=== PATIENT | female | born 1965 | race Caucasian/White ===

== ENCOUNTER 2020-10-19 13:23 | Observation (INO) ==
--- OUTSIDE RECORDS SUMMARY | 2020-10-19 13:26 | External Medical Summary | Continuity of Care Document ---
:1965 Author Name Jorge Mayfield, Provider Address Unavailable Unavailable , Care Team Providers Name Role Phone Unavailable Unavailable Unavailable Problems Active medical history not documented Allergies and Adverse Reactions Sulfa Drugs (Allergy) Medications Cyclobenzaprine HCl - 10 MG Oral Tablet; TAKE 1 TABLET TWICE DAILY NEEDED. , M.D. Start: 31-Jan-2018 Refills: 0 Arthrotec 75-0.2 MG Oral Tablet Delayed Release; take 1 tablet by mouth 2 times per day , M.D. Start: 31-Jan-2018 Refills: 0 Lantus SoloStar 100 UNIT/ML Subcutaneous Solution Pen-injector; Inject 18 units at bedtime , M.D. Start: 31-Jan-2018 Refills: 0 3 ML Pen Glucophage 1000 MG TABS; TAKE (1) TABLET BY MOUTH 2 TI MES A DAY WITH MEALS , M.D. Start: 31-Jan-2018 Refills: 0 Pamelor 50 MG Oral Capsule; TAKE 2 CAPSULES AT BEDTIME. , M. D. Start: 31-Jan-2018 Refills: 0 Zofran 4 MG Oral Tablet; take 4mg by mouth every 6 hours as needed , M.D. Start: 31-Jan-2018 Refills: 0 Requip 0.25 MG TABS; Take 1 tablet daily , M.D. Start: 31-Jan-2018 Refills: 0 Ambien 5 MG Oral Tablet; TAKE 1 TABLET AT BEDTIME NEEDED. , M.D. Start: 31-Jan-2018 Refills: 0 Nicoderm CQ 14 MG/24HR Transdermal Patch 24 Hour; APPLY 1 PATCH DAILY DIRECTED. , M.D. Start: 31-Jan-2018 Refills: 0 Procedures Procedures not documented Immunizations Immunizations not documented Plan of Treatment Planned Observations Planned Goals not documented Results No Known Results Results not documented
[2020-10-19] MEDS ORDERED: NITROGLYCERIN 2% OINTMENT 30GM TUBE EXT STA (14:03)
[2020-10-19] MEDS ORDERED: ACETAMINOPHEN 1,000 MG/100 ML VIAL IV STA (14:03)
[2020-10-19] MEDS ORDERED: FAMOTIDINE 20MG/5ML IV PUSH IV STA (14:04)
--- NOTE | 2020-10-19 14:08 | Emergency Department Note ---
History of Present Illness General Chief complaint: Chest Pain Stated complaint: CHEST PAIN/NECK PAIN Time Seen by Provider: 10/19/20 13:46 Source: patient Mode of arrival: ambulatory Limitations: no limitations History of Present Illness Provider complaint: Chest pain, shortness of breath Onset (ago): month(s) Location: chest Radiation: back, neck and extremity Severity: moderate Pain Consistency: + colicky Maximum Pain Intensity: 8 Current Pain Intensity: 8 Quality: + constant Relieved By: + none Exacerbated By: + none Associated symptoms: + chest pain and + shortness of breath; no fever/chills Treatments prior to arrival: none This is a 55-year-old female presents emergency department complaining of chest pain and shortness of breath. Patient states the symptoms have been going on for months, and slowly seem to be getting worse. She states that she has been to [facility] as well as [facility] regarding this, but does not like going there because they do not do anything to help her. Patient states between 1 and 2 years ago she did undergo a cardiac cath at [facility] also. Patient states she went to her family doctor but they are not helping her so she is being transferred to another physician. She states they were making arrangements to have her see cardiology but she had not seen cardiology at this point. Patient states she is concerned she is having a heart attack because all of her other family members have heart problems. Patient states she quit smoking recently after she was found to have a blockage in her right lower extremity which occasionally causes numbness in her foot. Patient denies any recent illness, fevers or chills. Patient very tearful. When asked about medications or how she has been treating this patient states "they usually give me Dilaudid and then discharge me with oxycodone". On review of the PDMP, patient does appear to have monthly prescriptions for Ambien, lorazepam, and oxycodone. Pt seen during a time of high acuity and national emergency pandemic while wearing PPE. Home Medications Medication Instructions Recorded Confirmed Type albuterol 90 mcg INHALATION QID PRN 10/19/20 10/19/20 History aspirin [Aspir-Low] 81 mg PO DAILY 10/19/20 10/19/20 History cyclobenzaprine 10 mg PO BID 10/19/20 10/19/20 History diclofenac sodium [Voltaren] 1 g TOPICAL BID PRN 10/19/20 10/19/20 History insulin glargine [Basaglar KwikPen 40 unit SUBCUT HS 10/19/20 10/19/20 History U-100 Insulin] lorazepam [Ativan] 1 mg PO TID 10/19/20 10/19/20 History nortriptyline 50 mg PO BID 10/19/20 10/19/20 History pantoprazole 40 mg PO BID 10/19/20 10/19/20 History ropinirole 4 mg PO HS 10/19/20 10/19/20 History sucralfate 1 g PO ACHS 10/19/20 10/19/20 History zolpidem [Ambien] 10 mg PO HS 10/19/20 10/19/20 History Allergies Allergy/AdvReac Type Severity Reaction Status Date / Time morphine Allergy Severe blisters Verified 10/19/20 17:42 in mouth Sulfa (Sulfonamide Allergy Severe rash/swelli Verified 10/19/20 17:42 Antibiotics) ng Past Med/Surg History Medical History (Updated 10/20/20 @ 20:20 by Valerie Andersen DO) DM2 (diabetes mellitus, type 2) GIB (gastrointestinal bleeding) Surgical History (Updated 10/19/20 @ 23:21 by Aparna Grayson MD) History of esophagogastroduodenoscopy (EGD) Social History Smoking Status: Former smoker Hx Alcohol Use: No Hx Substance Use: No Beliefs That Will Affect Care: None Current Living Situation: Family Other Information That Helps Us Care for You: No Feels Safe at Home: Yes Safety Concerns: Feels Safe At This Time Assistive Devices: None Review of Systems See HPI for pertinent positives & negatives. and A total of 10 systems reviewed and were otherwise negative Physical Exam Vital Signs Vital Signs - 24 hr 10/19/20 13:25 10/19/20 13:37 10/19/20 13:51 Temperature 36.8 C Temperature Source Oral Pulse Rate 110 H 104 H 101 H Pulse Rate [Apical] Pulse Rate from SpO2 Sensor 102 H Pulse Rhythm Regular Pulse Rhythm [Apical] Pulse Strength Normal Pulse Strength [Apical] Respiratory Rate 18 18 12 Respiratory Effort / Characteristics Non-Labored Spontaneous Respiratory Depth Normal Respiratory Pattern Regular Blood Pressure 169/93 H 165/93 H Blood Pressure [Left Arm] Blood Pressure Mean 118 117 Blood Pressure Mean [Left Arm] Blood Pressure Position Sitting Blood Pressure Position [Left Arm] Pulse Oximetry 96 99 Oxygen Delivery Method Room Air Sepsis Recent Fever Within 48 Hours No Sepsis New/Unexplained Change in Mental Status N/A Sepsis Action Taken by Nursing No Action Required 10/19/20 13:52 10/19/20 14:00 10/19/20 14:16 Temperature Temperature Source Pulse Rate 102 H 101 H Pulse Rate [Apical] 101 H Pulse Rate from SpO2 Sensor 102 H 102 H Pulse Rhythm Pulse Rhythm [Apical] Regular Pulse Strength Pulse Strength [Apical] Normal Respiratory Rate 18 20 15 Respiratory Effort / Characteristics Non-Labored Spontaneous Respiratory Depth Normal Respiratory Pattern Regular Blood Pressure 200/160 H 136/94 Blood Pressure [Left Arm] 165/93 H Blood Pressure Mean 173 108 Blood Pressure Mean [Left Arm] 117 Blood Pressure Position Blood Pressure Position [Left Arm] Semi-fowlers Pulse Oximetry 99 98 98 Oxygen Delivery Method Room Air Sepsis Recent Fever Within 48 Hours Sepsis New/Unexplained Change in Mental Status Sepsis Action Taken by Nursing 10/19/20 14:17 10/19/20 14:30 10/19/20 15:01 Temperature Temperature Source Pulse Rate 99 H 104 H 106 H Pulse Rate [Apical] Pulse Rate from SpO2 Sensor 99 H 104 H 106 H Pulse Rhythm Pulse Rhythm [Apical] Pulse Strength Pulse Strength [Apical] Respiratory Rate 14 20 17 Respiratory Effort / Characteristics Respiratory Depth Respiratory Pattern Blood Pressure 181/84 H 143/89 H Blood Pressure [Left Arm] Blood Pressure Mean 116 107 Blood Pressure Mean [Left Arm] Blood Pressure Position Blood Pressure Position [Left Arm] Pulse Oximetry 98 99 98 Oxygen Delivery Method Room Air Sepsis Recent Fever Within 48 Hours Sepsis New/Unexplained Change in Mental Status Sepsis Action Taken by Nursing 10/19/20 15:02 10/19/20 16:00 10/19/20 16:39 Temperature Temperature Source Pulse Rate 104 H 96 H 91 H Pulse Rate [Apical] Pulse Rate from SpO2 Sensor 104 H 96 H Pulse Rhythm Pulse Rhythm [Apical] Pulse Strength Pulse Strength [Apical] Respiratory Rate 19 17 13 Respiratory Effort / Characteristics Respiratory Depth Respiratory Pattern Blood Pressure 137/94 129/84 Blood Pressure [Left Arm] Blood Pressure Mean 108 99 Blood Pressure Mean [Left Arm] Blood Pressure Position Blood Pressure Position [Left Arm] Pulse Oximetry 98 97 Oxygen Delivery Method Room Air Room Air Sepsis Recent Fever Within 48 Hours Sepsis New/Unexplained Change in Mental Status Sepsis Action Taken by Nursing 10/19/20 17:00 10/19/20 17:30 10/19/20 18:01 Temperature Temperature Source Pulse Rate 94 H 96 H 91 H Pulse Rate [Apical] Pulse Rate from SpO2 Sensor 92 H Pulse Rhythm Pulse Rhythm [Apical] Pulse Strength Pulse Strength [Apical] Respiratory Rate 15 22 18 Respiratory Effort / Characteristics Respiratory Depth Respiratory Pattern Blood Pressure 103/75 145/82 H 114/74 Blood Pressure [Left Arm] Blood Pressure Mean 84 103 87 Blood Pressure Mean [Left Arm] Blood Pressure Position Blood Pressure Position [Left Arm] Pulse Oximetry 98 Oxygen Delivery Method Room Air Sepsis Recent Fever Within 48 Hours Sepsis New/Unexplained Change in Mental Status Sepsis Action Taken by Nursing 10/19/20 18:30 Temperature Temperature Source Pulse Rate 100 H Pulse Rate [Apical] Pulse Rate from SpO2 Sensor 96 H Pulse Rhythm Pulse Rhythm [Apical] Pulse Strength Pulse Strength [Apical] Respiratory Rate 22 Respiratory Effort / Characteristics Respiratory Depth Respiratory Pattern Blood Pressure 125/85 Blood Pressure [Left Arm] Blood Pressure Mean 98 Blood Pressure Mean [Left Arm] Blood Pressure Position Blood Pressure Position [Left Arm] Pulse Oximetry 98 Oxygen Delivery Method Room Air Sepsis Recent Fever Within 48 Hours Sepsis New/Unexplained Change in Mental Status Sepsis Action Taken by Nursing GENERAL: alert, well appearing, well nourished, no distress, non-toxic EYE EXAM: normal conjunctiva, PERRL and EOM's grossly intact OROPHARYNX: no exudate, no erythema, lips, buccal mucosa, and tongue normal and mucous membranes are moist NECK: supple, no nuchal rigidity, no adenopathy, non-tender LUNGS: Clear to auscultation. Normal chest wall mechanics, no w/r/r HEART: no murmurs, S1 normal and S2 normal ABDOMEN: abdomen soft, non-tender, normo-active bowel sounds, no masses, no rebound or guarding. BACK: Back is symmetrical on inspection and there is no deformity, no midline tenderness, no CVA tenderness. SKIN: no rashes and no bruising UPPER EXTREMITIES: upper extremities are grossly normal. FROM, nml pulses b/l. LOWER EXTREMITIES: No pitting edema. FROM, nml pulses b/l. NEURO EXAM: Normal sensorium, cranial nerves II-XII grossly intact, normal speech, no gross weakness of arms, no gross weakness of legs. Gross sensation intact. Course Course 170: Patient updated on results. Patient states she also underwent EGD recently and was told she is "eroded". She states she takes stomach medication daily, and was also started on carafate in addition. Patient continues to complain of pain. 1811: Discussed with patient possible need for inpatient evaluation due to ongoing pain. Patient continuing to request pain medication. 1829: Discussed with Dr. Ko. 2010: Discussed with Dr. Staton. Administered Medications Acetaminophen (Acetaminophen 325 Mg Tab) 650 mg PO Q4H PRN PRN Reason: Pain or Fever Stop: 11/18/20 23:11 Last Admin: 10/20/20 05:04 Dose: 650 mg Documented by: [id number] Admin: 10/20/20 01:31 Dose: 650 mg Documented by: [id number] Hydrocodone Bitart/Acetaminophen (Hydrocodone/Acetaminophen 7.5/325mg Tab) 1 tab PO Q4H PRN PRN Reason: Pain Stop: 11/03/20 14:55 Last Admin: 10/20/20 15:15 Dose: 1 tab Documented by: [id number] Aspirin (Aspirin 81 Mg Ectab) 81 mg PO DAILY [facility] Stop: 11/19/20 08:59 Last Admin: 10/20/20 07:45 Dose: 81 mg Documented by: [id number] Cyclobenzaprine HCl (Cyclobenzaprine Hcl 10 Mg Tab) 10 mg PO BID [facility] Stop: 11/18/20 22:29 Last Admin: 10/20/20 07:45 Dose: 10 mg Documented by: [id number] Admin: 10/19/20 22:52 Dose: 10 mg Documented by: [id number] Heparin Sodium (Porcine) (Heparin Sod 5,000 Unit/0.5 Ml Vial) 5,000 units SQ Q12 RICKY Stop: 11/18/20 22:29 Last Admin: 10/20/20 07:45 Dose: 5,000 units Documented by: [id number] Admin: 10/19/20 22:54 Dose: 5,000 units Documented by: [id number] Insulin Aspart (Insulin Aspart 100 Units/Ml 3 Ml Pen) 0 units SC Q6 [facility] Stop: 11/18/20 22:29 Last Admin: 10/20/20 16:26 Dose: 1 units Documented by: [id number] Cosigned by: [id number] Admin: 10/20/20 13:48 Dose: 1 units Documented by: [id number] Cosigned by: [id number] Admin: 10/20/20 07:56 Dose: 1 units Documented by: [id number] Cosigned by: [id number] Admin: 10/19/20 22:57 Dose: 4 units Documented by: [id number] Cosigned by: [id number] Insulin Glargine (Insulin Glargine Solostar 100 Units/Ml 3 Ml Pen) 20 units SC BID RICKY Stop: 11/19/20 08:59 Last Admin: 10/20/20 10:36 Dose: 20 units Documented by: [id number] Cosigned by: [id number] Nortriptyline HCl (Nortriptyline Hcl 25 Mg Cap) 50 mg PO BID RICKY Stop: 11/18/20 22:18 Last Admin: 10/20/20 07:44 Dose: 50 mg Documented by: [id number] Admin: 10/19/20 22:53 Dose: 50 mg Documented by: [id number] Ondansetron HCl (Ondansetron Inj 2 Mg/Ml 2 Ml Vial) 4 mg IV Q6H PRN PRN Reason: Nausea Stop: 11/18/20 23:11 Last Admin: 10/20/20 16:56 Dose: 4 mg Documented by: [id number] Admin: 10/20/20 00:56 Dose: 4 mg Documented by: [id number] Pantoprazole Sodium (Pantoprazole 40 Mg Tab) 40 mg PO BID RICKY Stop: 11/18/20 22:18 Last Admin: 10/20/20 07:45 Dose: 40 mg Documented by: [id number] Admin: 10/19/20 22:52 Dose: 40 mg Documented by: [id number] Ropinirole HCl (Ropinirole Hcl 1 Mg Tablet) 4 mg PO HS RICKY Stop: 11/18/20 22:18 Last Admin: 10/19/20 22:53 Dose: 4 mg Documented by: [id number] Sucralfate (Sucralfate 1 Gm Tab) 1 gm PO ACHS RICKY Stop: 11/18/20 22:18 Last Admin: 10/20/20 16:20 Dose: 1 gm Documented by: [id number] Admin: 10/20/20 11:40 Dose: 1 gm Documented by: [id number] Admin: 10/20/20 07:45 Dose: 1 gm Documented by: [id number] Admin: 10/19/20 22:53 Dose: 1 gm Documented by: [id number] Tramadol HCl (Tramadol Hcl 50 Mg Tablet) 50 mg PO Q4H PRN PRN Reason: Pain Stop: 11/19/20 01:17 Last Admin: 10/20/20 10:38 Dose: 50 mg Documented by: [id number] Admin: 10/20/20 05:05 Dose: 50 mg Documented by: [id number] Admin: 10/20/20 01:33 Dose: 50 mg Documented by: [id number] Zolpidem Tartrate (Zolpidem Tartrate 10 Mg Tab) 10 mg PO HS PRN PRN Reason: Sleep Stop: 11/18/20 23:11 Last Admin: 10/19/20 23:35 Dose: 10 mg Documented by: [id number] Discontinued Medications Al Hydrox/Mg Hydrox/Simethicone (Aluminum/Magnesium Susp 30 Ml Udc) 15 ml PO NOW STA Stop: 10/19/20 17:01 Last Admin: 10/19/20 17:33 Dose: 15 ml Documented by: [id number] Albuterol (Albut/Ipratrop 3mg/0.5mg Neb 3 Ml Vial) 3 ml NEB NOW STA Stop: 10/19/20 19:29 Last Admin: 10/19/20 20:05 Dose: 3 ml Documented by: [id number] Atropine Sulfate (Atropine Sulfate 0.1 Mg/Ml 10ml Syr) Confirm Administered Dose 2 mg IV .STK-MED ONE Stop: 10/20/20 09:39 Last Admin: 10/20/20 11:09 Dose: Not Given Documented by: [id number] Diphenhydramine HCl (Diphenhydramine 50 Mg/Ml Vial) 12.5 mg IV NOW STA Stop: 10/19/20 15:07 Last Admin: 10/19/20 15:22 Dose: 12.5 mg Documented by: [id number] Diphenhydramine HCl (Diphenhydramine 50 Mg/Ml Vial) 25 mg IV NOW STA Stop: 10/19/20 22:26 Last Admin: 10/19/20 22:51 Dose: 25 mg Documented by: [id number] Dobutamine HCl (Dobutamine Hcl 12.5 Mg/Ml 20 Ml Vial) Confirm Administered Dose 250 mg IV .STK-MED ONE Stop: 10/20/20 09:39 Last Admin: 10/20/20 11:09 Dose: Not Given Documented by: [id number] Famotidine (Famotidine 20mg/5ml Iv Push) 20 mg IV ONE STA Stop: 10/19/20 14:05 Last Admin: 10/19/20 14:13 Dose: 20 mg Documented by: [id number] Acetaminophen (Ofirmev) 1,000 mg in 100 mls @ 400 mls/hr IV NOW STA Stop: 10/19/20 14:17 Last Infusion: 10/19/20 14:52 Dose: 0 mls/hr Documented by: [id number] Admin: 10/19/20 14:11 Dose: 400 mls/hr Documented by: [id number] Sodium Chloride (Nss 1000ml) 1,000 mls @ 150 mls/hr IV .Q6H40M RICKY Stop: 11/18/20 17:29 Last Admin: 10/20/20 16:29 Dose: Not Given Documented by: [id number] Infusion: 10/20/20 16:29 Dose: 0 mls/hr Documented by: [id number] Admin: 10/20/20 11:40 Dose: 150 mls/hr Documented by: [id number] Infusion: 10/20/20 09:14 Dose: 150 mls/hr Documented by: [id number] Admin: 10/20/20 02:33 Dose: 150 mls/hr Documented by: [id number] Infusion: 10/20/20 02:28 Dose: 150 mls/hr Documented by: [id number] Admin: 10/19/20 18:04 Dose: 125 mls/hr Documented by: [id number] Lorazepam (Ativan) 0.5 mg in 1 mls @ 1 mls/min IV NOW STA Stop: 10/19/20 17:21 Last Admin: 10/19/20 17:34 Dose: 1 mls/min Documented by: [id number] Lorazepam (Ativan) 1 mg in 2 mls @ 2 mls/min IV NOW STA Stop: 10/20/20 00:45 Last Admin: 10/20/20 00:56 Dose: 2 mls/min Documented by: [id number] Insulin Glargine (Insulin Glargine Solostar 100 Units/Ml 3 Ml Pen) 30 units SC BID RICKY Stop: 11/18/20 22:18 Last Admin: 10/19/20 22:56 Dose: 30 units Documented by: [id number] Cosigned by: [id number] Ioversol (Optiray 320 125ml) 118 ml IV ONCE ONE Stop: 10/19/20 15:29 Last Admin: 10/19/20 15:29 Dose: 118 ml Documented by: [id number] Ioversol (Ioversol 100ml) 92 ml IV ONCE ONE Stop: 10/20/20 17:48 Last Admin: 10/20/20 17:48 Dose: 92 ml Documented by: [id number] Ketorolac Tromethamine (Ketorolac Tromethamine 15 Mg/Ml Vial) 10 mg IV NOW ONE Stop: 10/19/20 14:57 Last Admin: 10/19/20 15:00 Dose: 10 mg Documented by: [id number] Metoclopramide HCl (Metoclopramide Hcl Inj 5 Mg/Ml 2 Ml Vial) 5 mg IV ONE ONE Stop: 10/19/20 15:07 Last Admin: 10/19/20 15:22 Dose: 5 mg Documented by: [id number] Metoprolol Tartrate (Metoprolol Tartrate 1 Mg/Ml Vial) Confirm Administered Dose 10 mg IV .STK-MED ONE Stop: 10/20/20 09:39 Last Admin: 10/20/20 11:09 Dose: Not Given Documented by: [id number] Nitroglycerin (Nitroglycerin 2% Ointment 30gm Tube) 2 inch EXT NOW STA Stop: 10/19/20 14:04 Last Admin: 10/19/20 14:11 Dose: 2 inch Documented by: [id number] Sucralfate (Sucralfate 1 Gm/10 Ml Udc) 1 gm PO NOW STA Stop: 10/19/20 17:01 Last Admin: 10/19/20 17:33 Dose: 1 gm Documented by: [id number] Tramadol HCl (Tramadol Hcl 50 Mg Tablet) 50 mg PO NOW STA Stop: 10/19/20 19:40 Last Admin: 10/19/20 19:59 Dose: 50 mg Documented by: [id number] Medical Decision Making Differential Diagnosis Differential diagnoses includes but is not limited to acute coronary syndrome, myocardial infarction, pericarditis, pulmonary embolus, aortic dissection, pneumonia, pneumothorax, musculoskeletal, shingles, esophageal. Medical Records Attestation: I reviewed the patient's medical records. Home Medications Current Medication List: was personally reviewed by me Laboratory Data Attestation: I reviewed the patient's lab results. Result diagrams: 10/20/20 01:54 10/20/20 01:51 Lab Results 10/19/20 10/19/20 10/19/20 Range/Units 13:47 13:47 13:47 WBC 11.80 H (4.8-10.8) K/uL RBC 4.99 (4.2-5.4) M/uL Hgb 14.6 (12.0-16.0) g/dL Hct 42.2 (37-47) % MCV 84.6 (80-100) fL MCH 29.3 (25-34) pg MCHC 34.6 (32-36) g/dL RDW Std Deviation 38.6 (36.4-46.3) fL RDW Coeff of [place] 12.8 (11.5-14.5) % Plt Count 331 (130-400) K/uL MPV 10.0 (7.4-10.4) fL Immature Gran % (Auto) 0.3 % Neut % (Auto) 63.4 % Lymph % (Auto) 26.4 % [place] % (Auto) 7.7 % Eos % (Auto) 1.9 % Baso % (Auto) 0.3 % Neut # (Auto) 7.46 H (1.4-6.5) K/uL Lymph # (Auto) 3.12 (1.2-3.4) K/uL [place] # (Auto) 0.91 H (0.11-0.59) K/uL Eos # (Auto) 0.23 (0-0.5) K/uL Baso # (Auto) 0.04 (0-0.2) K/uL Immature Gran # (Auto) 0.04 H (0.00-0.02) K/uL D-Dimer 220 (0-500) ug/L FEU Sodium 132 L (136-145) mmol/L Potassium 4.0 (3.5-5.1) mmol/L Chloride 99 (98-107) mmol/L Carbon Dioxide 25 (21-32) mmol/L Anion Gap 8.0 (3-11) BUN 10 (7-18) mg/dl Creatinine 0.64 (0.6-1.2) mg/dl Est Cr Clr Drug Dosing 91.9 ml/min Est GFR ( Amer) 115.6 Est GFR (Non-Af Amer) 99.8 BUN/Creatinine Ratio 16.0 (10-20) Glucose 298 H (70-99) mg/dl Calcium 10.1 (8.5-10.1) mg/dl Magnesium 1.9 (1.8-2.4) mg/dl Total Bilirubin 0.5 (0.2-1) mg/dl AST 6 L (15-37) U/L ALT 35 (12-78) U/L Alkaline Phosphatase 110 (45-117) U/L Troponin I < 0.015 (0-0.045) ng/ml NT-Pro-B Natriuret Pep 20 (0-900) pg/ml Total Protein 8.2 (6.4-8.2) gm/dl Albumin 4.3 (3.4-5.0) gm/dl Globulin 3.9 (2.5-4.0) gm/dl Albumin/Globulin Ratio 1.1 (0.9-2) Lipase 51 L (73-393) U/L TSH 1.770 (0.300-4.500) uIu/ml Imaging Data Radiologist's Impression: XR chest 1V portable HISTORY: Atypical chest pain COMPARISON: None. FINDINGS: The lungs are clear. Cardiac silhouette is normal in size. No pleural effusions. No pneumothorax. IMPRESSION: No acute process. ACT 112: Negative or not required by law. Electronically signed by: Ernst Murray M.D. 10/19/2020 2:[address] ANGIOGRAM OF THE CHEST COMBO CLINICAL HISTORY: Atypical chest pain radiating into the neck and back. COMPARISON STUDY: Chest x-ray dated 10/19/2020. TECHNIQUE: Before and following the IV administration of 118 cc of Optiray 320, CT angiogram of the chest was performed from the thoracic inlet to the upper abdomen utilizing the dissection protocol. Images are reviewed in the axial, sagittal, and coronal planes. 3-D MIPS images are created and assessed. IV contrast was administered without complication. A dose lowering technique was utilized adhering to the principles of ALARA. CT DOSE: 764.68 mGy.cm FINDINGS: Thyroid: Imaged portions of the thyroid gland are normal in size and attenuation. A coarse calcification is noted in the left lobe. Thoracic aorta: There is mild atherosclerotic calcification of the thoracic aorta. No intramural hematoma is seen on the unenhanced series. The thoracic aorta is normal in caliber and demonstrates bovine variant arch anatomy. No dissection is seen. The arch vessels are widely patent. Pulmonary vasculature: The pulmonary trunk is normal in caliber. There is no evidence of pulmonary embolus in the main, lobar, or segmental pulmonary arteries. Heart: The heart is normal in size noting trace pericardial effusion. The coronary arteries are densely calcified. Lungs and pleural spaces: Mild emphysematous change is noted. There is no airspace consolidation or pleural effusion. The trachea and central airways are clear. Mild diffuse peribronchial thickening is noted. Scattered foci of tree-in-bud nodularity are scattered throughout both lungs, greatest in the upper lobes. Mediastinum: There is no mediastinal lymphadenopathy. [place]: Clear. Axillae: There is no axillary lymphadenopathy. Upper abdomen: There is a small hiatal hernia. Cholecystectomy clips are noted on the coal gasification technician tomogram. Partially visualized upper abdominal viscera is otherwise within normal limits. Skeletal structures: No lytic or blastic bony lesions are seen. Calcific tendinopathy is suggested in the right shoulder. IMPRESSION: 1. Unremarkable CT angiogram of the thoracic aorta. 2. There is no evidence of pulmonary embolus in the main, lobar, or segmental pulmonary arteries. 3. Emphysema. 4. There is advanced coronary artery calcification. Consider nonemergent cardiology follow-up. 5. There is no lobar consolidation or pleural effusion. 6. Mild diffuse peribronchial thickening is noted and there are scattered tree-in-bud airspace opacities in the upper lobes. The appearance suggests bronchitis/reactive airway disease and a minimal pneumonitis. Clinical correlation will be essential. 7. Additional findings as above. ACT 112: Positive. There are findings on this exam that require communication between the performing entity and the patient following Patient Test Result Information Act ([place] Act 112) guidelines. Electronically signed by: Finn Bradshaw M.D. 10/19/2020 3:48 PM ECG Data Attestation: I personally reviewed and interpreted this ECG as follows: Indication: + chest pain Rate (beats per minute): 109 Rhythm: + sinus tachycardia ECG Intervals/blocks: + Normal QRS and + Normal QT ECG [place]: + Normal ECG ST segments: + Normal ST segments MDM Narrative HEART score 4 This is a 55-year-old female presents due to concern for ongoing pain. Patient felt pain which she has had intermittently over several months was acutely worse and now radiating beyond where she has previously experienced radiation of pain. Patient placed on vehicle monitor technician, labs drawn and sent, chest x-ray performed. Patient's initial labs and imaging reassuring, patient continued to complain of pain. Patient was given several different types of pain medication to try and treat her symptoms. Patient was not given narcotics as she seemed to be specifically requesting that based on prior experience per her report. I explained to her I do not feel this is appropriate as we needed to find the etiology of her pain. I did review the PDMP. Patient has previously been seen by cardiology and we were able to obtain outside records of a cardiac cath in early 2019. Given the patient's history of diabetes and smoking this was fairly reassuring. Patient denied any recent illness or trauma. One 1 repeat eval uation patient then also reported she had had a recent EGD as part of an evaluation for pain and was told she had significant erosion and Carafate was added to her daily regimen of a PPI. Additional GI medications here did not seem to improve her pain. Despite a reassuring evaluation here in the emergency room, patient does have an elevated heart score, and due to ongoing complaints of pain case was discussed with Hospitalist team. No ectopy or dysrhythmia noted on telemetry. An order was placed for continuous cardiac monitoring. The monitor shows a rate of _92_ with _Normal sinus rhythm. Patient has a family history of CAD. Patient was first seen and observation began at 1346 and was necessary in order to determine Evaluate possible etiology of her pain and rule out cardiac source. Upon re-evaluation, 4.5 hours of observation revealed that the patient should be admitted. Discharge from observation at 1830. Impression & Plan Chest pain, Insulin dependent diabetes mellitus Discharge Plan Visit Data Chief Complaint: Chest Pain Stated Complaint: CHEST PAIN/NECK PAIN ED Provider: Valerie Andersen Discharge Problem: Chest pain, Insulin dependent diabetes mellitus Patient Disposition: Admitted As Inpatient Discharge Instructions Interventions: ED Discharge Assessment Last Done: 10/19/20 21:58 Discharge Problem: Chest pain Qualifiers: Chest pain type: unspecified Qualified Code(s): R07.9 - Chest pain, unspecified
[2020-10-19 14:12] LABS: Basophils # (auto) 0.04 K/uL (0-0.2); Basophils % (auto) 0.3 %; Eosinophils # (auto) 0.23 K/uL (0-0.5); Eosinophils % (auto) 1.9 %; Hematocrit (blood only) 42.2 % (37-47); Hemoglobin 14.6 g/dL (12.0-16.0); Immature Granulocytes # (auto) 0.04 K/uL (0.00-0.02); Immature Granulocytes % (auto) 0.3 %; Lymphocytes # (auto) 3.12 K/uL (1.2-3.4); Lymphocytes % (auto) 26.4 %; Mean Corpuscular Hemoglobin 29.3 pg (25-34); Mean Corpuscular Hgb Conc 34.6 g/dL (32-36); Mean Corpuscular Volume 84.6 fL (80-100); Monocytes # (auto) 0.91 K/uL (0.11-0.59); Monocytes % (auto) 7.7 %; Neutrophils # (auto) 7.46 K/uL (1.4-6.5); Neutrophils % (auto) 63.4 %; Platelet Count 331 K/uL (130-400); RDW Coefficient of Variation 12.8 % (11.5-14.5); RDW Standard Deviation 38.6 fL (36.4-46.3); Red Blood Count 4.99 M/uL (4.2-5.4)
[2020-10-19 14:21] LABS: Albumin Level 4.3 gm/dl (3.4-5.0); Blood Urea Nitrogen 10 mg/dl (7-18); Calcium 10.1 mg/dl (8.5-10.1); Carbon Dioxide 25 mmol/L (21-32); Chloride 99 mmol/L (98-107); Creatinine Clr Calc Pharmacy 91.9 ml/min; Est GFR (African American) 115.6; Est GFR (Non-African American) 99.8; Glucose 298 mg/dl (70-99); Lipase 51 U/L (73-393); Magnesium 1.9 mg/dl (1.8-2.4); Sodium 132 mmol/L (136-145)
[2020-10-19 14:27] LABS: D Dimer 220 ug/L FEU (0-500)
--- NOTE | 2020-10-19 14:30 | XRay Report ---
XR chest 1V portable HISTORY: Atypical chest pain COMPARISON: None. FINDINGS: The lungs are clear. Cardiac silhouette is normal in size. No pleural effusions. No pneumot horax. IMPRESSION: No acute process. ACT 112: Negative or not required by law. Electronically signed by: Ernst Murray M.D. 10/19/2020 2:29 PM
[2020-10-19 14:31] LABS: Alanine Aminotransferase 35 U/L (12-78); Albumin Globulin Ratio 1.1 (0.9-2); Alkaline Phosphatase 110 U/L (45-117); Aspartate Aminotransferase 6 U/L (15-37); Bilirubin,Total 0.5 mg/dl (0.2-1); Globulin 3.9 gm/dl (2.5-4.0); NT Pro B Type Natriuretic Pept 20 pg/ml (0-900); Total Protein 8.2 gm/dl (6.4-8.2); Troponin I < 0.015 ng/ml (0-0.045)
[2020-10-19] MEDS ORDERED: KETOROLAC TROMETHAMINE 15 MG/ML VIAL IV ONE (14:56)
[2020-10-19] MEDS ORDERED: diphenhydrAMINE 50 MG/ML VIAL IV STA ×2 (15:06→22:25)
[2020-10-19] MEDS ORDERED: METOCLOPRAMIDE HCL INJ 5 MG/ML 2 ML VIAL IV ONE (15:06)
[2020-10-19] MEDS ORDERED: OPTIRAY 320 125ml IV ONE (15:28)
--- NOTE | 2020-10-19 15:49 | CT Scan Report ---
CT ANGIOGRAM OF THE CHEST COMBO CLINICAL HISTORY: Atypical chest pain radiating into the neck and back. COMPARISON STUDY: Chest x-ray dated 10/19/2020. TECHNIQUE: Before and following the IV administration of 118 cc of Optiray 320, CT angiogram of the c hest was performed from the thoracic inlet to the upper abdomen utilizing the dissection protocol. Im ages are reviewed in the axial, sagittal, and coronal planes. 3-D MIPS images are created and assesse d. IV contrast was administered without complication. A dose lowering technique was utilized adherin g to the principles of ALARA. CT DOSE: 764.68 mGy.cm FINDINGS: Thyroid: Imaged portions of the thyroid gland are normal in size and attenuation. A coarse calcificat ion is noted in the left lobe. Thoracic aorta: There is mild atherosclerotic calcification of the thoracic aorta. No intramural anne harrison is seen on the unenhanced series. The thoracic aorta is normal in caliber and demonstrates bovin e variant arch anatomy. No dissection is seen. The arch vessels are widely patent. Pulmonary vasculature: The pulmonary trunk is normal in caliber. There is no evidence of pulmonary em bolus in the main, lobar, or segmental pulmonary arteries. Heart: The heart is normal in size noting trace pericardial effusion. The coronary arteries are dense ly calcified. Lungs and pleural spaces: Mild emphysematous change is noted. There is no airspace consolidation or p leural effusion. The trachea and central airways are clear. Mild diffuse peribronchial thickening is noted. Scattered foci of tree-in-bud nodularity are scattered throughout both lungs, greatest in the upper lobes. Mediastinum: There is no mediastinal lymphadenopathy. [place]: Clear. Axillae: There is no axillary lymphadenopathy. Upper abdomen: There is a small hiatal hernia. Cholecystectomy clips are noted on the modeling director tomogram. Partially visualized upper abdominal viscera is otherwise within normal limits. Skeletal structures: No lytic or blastic bony lesions are seen. Calcific tendinopathy is suggested in the right shoulder. IMPRESSION: 1. Unremarkable CT angiogram of the thoracic aorta. 2. There is no evidence of pulmonary embolus in the main, lobar, or segmental pulmonary arteries. 3. Emphysema. 4. There is advanced coronary artery calcification. Consider nonemergent cardiology follow-up. 5. There is no lobar consolidation or pleural effusion. 6. Mild diffuse peribronchial thickening is noted and there are scattered tree-in-bud airspace opacit ies in the upper lobes. The appearance suggests bronchitis/reactive airway disease and a minimal pneu monitis. Clinical correlation will be essential. 7. Additional findings as above. ACT 112: Positive. There are findings on this exam that require communication between the performing entity and the patient following Patient Test Result Information Act ([place] Act 112) guidelines. Electronically signed by: Finn Bradshaw M.D. 10/19/2020 3:48 PM
--- NOTE | 2020-10-19 16:32 | Electrocardiogram Report ---
Test Reason : Blood Pressure : / mmHG Vent. Rate : 109 BPM Atrial Rate : 109 BPM P-R Int : 152 ms QRS Dur : 090 ms QT Int : 332 ms P-R-T Axes : 072 065 070 degrees QTc Int : 447 ms Poor data quality, interpretation may be adversely affected Sinus tachycardia Possible Left atrial enlargement Low voltage QRS Septal infarct , age undetermined Abnormal ECG No previous ECGs available Confirmed by Aakash Ruff ([id number]) on 10/19/2020 4:32:46 PM Referred By: REFERRED SELF Confirmed By:Aakash Ruff
[2020-10-19] MEDS ORDERED: SUCRALFATE 1 GM/10 ML UDC PO STA (17:00)
[2020-10-19] MEDS ORDERED: ALUMINUM/MAGNESIUM SUSP 30 ML UDC PO STA (17:00)
[2020-10-19] MEDS ORDERED: LORazepam 0.5 MG/1 ML VIAL IV STA (17:20)
[2020-10-19] MEDS: SODIUM CHLORIDE 0.9% 1000ML 1,000 ML IV SCH (18:04)
[2020-10-19] MEDS ORDERED: ALBUT/IPRATROP 3MG/0.5MG NEB 3 ML VIAL NEB STA (19:28)
[2020-10-19] MEDS ORDERED: traMADol HCL 50 MG TABLET PO STA (19:39)
--- NOTE | 2020-10-19 19:42 | History & Physical Report ---
Date of Service October 19, 2020 Assessment & Plan (1) Chest pain: 55 yo F presenting to hospital for ongoing chest pain for past few months with variable symptoms. Chest Pain - troponin negative - EKG: sinus tachycardia with left atrial enlargement, no ST segment changes or QRS widening - hx low grade coronary stenosis (30% in 2019) - history difficult to discern, possibly exertional dyspnea? vs. angina - HEART score 4 (DM2, Smoking, 55 yo, PVD, moderately suspicious sx) - stress echocardiogram in AM - A1c, lipid panel in AM - troponin repeat - PCU DM2 - takes 40 units lantus at bedtime, switched to 20 units BID - takes 10 units humalog with meals, SSI with carb consistent meals - likely would benefit from ASA, Statin pending A1c and lipid panel Concern for secondary gain - patient repeatedly asking for pain medication to resolve her multitude of symptoms - told ER provider and this provider that other hospitals have given her dilaudid for chest pain - consistently rates pain 8-10 without relief - no resolution of pain with toradol, nitro, tylenol. - tramadol 50 mg Q4 PRN Pulmonary wheezing - heard on exam, likely COPD given smoking hx - pt states she was told she had COPD but never given any medications for it or had testing done Hx GIB - recently had GIB and was evaluated at [facility] - denies being sent home with medications despite PPI, sucralfate being on medication list DVT ppx: heparin Q12 FEN/GI: heart health, carb consistent diet Code Status: full code Dispo: PCU (2) DM2 (diabetes mellitus, type 2): History of Present Illness 55-year-old female with a recent past medical history of EGD at [facility] for upper GI bleed, DM2, COPD, tobacco abuse. She presents to the hospital today with complaints of chest pain that has been ongoing for a few months. She states that it is sharp and stabbing in her front of her chest sometimes goes down her left arm and feels persistent. She denies any worsened pain or shortness of breath with exertion. She is unsure of what brings on the pain. She states that at this point she just "just wants relief" and is tearful when describing the pain being around the clock. She states that at some point someone told her that she had COPD but she has not been treated for this and no testing was done to confirm it. She does have a smoking history of approximately 1 pack per 2 days for 25 years. She recently quit smoking 6 months ago. She attest to having diabetes that she takes 40 units of Lantus at bedtime and 10 units of Humalog with meals. She states that she is currently in between primary care providers and has not seen cardiology despite being seen in multiple hospitals for complaints of chest pain. Per ED provider she did have a cardiac cath performed last year that showed approximately 30% stenosis and no intervention was performed. Primary Care Provider: NO PCP Allergies Allergy/AdvReac Type Severity Reaction Status Date / Time morphine Allergy Severe blisters Verified 10/19/20 17:42 in mouth Sulfa (Sulfonamide Allergy Severe rash/swelli Verified 10/19/20 17:42 Antibiotics) ng Home Medications Medication Instructions Recorded Confirmed Type albuterol 90 mcg INHALATION QID PRN 10/19/20 10/19/20 History aspirin [Aspir-Low] 81 mg PO DAILY 10/19/20 10/19/20 History cyclobenzaprine 10 mg PO BID 10/19/20 10/19/20 History diclofenac sodium [Voltaren] 1 g TOPICAL BID PRN 10/19/20 10/19/20 History insulin glargine [Basaglar KwikPen 40 unit SUBCUT HS 10/19/20 10/19/20 History U-100 Insulin] lorazepam [Ativan] 1 mg PO TID 10/19/20 10/19/20 History nortriptyline 50 mg PO BID 10/19/20 10/19/20 History pantoprazole 40 mg PO BID 10/19/20 10/19/20 History ropinirole 4 mg PO HS 10/19/20 10/19/20 History sucralfate 1 g PO ACHS 10/19/20 10/19/20 History zolpidem [Ambien] 10 mg PO HS 10/19/20 10/19/20 History Past Med/Surg History Medical History (Updated 10/21/20 @ 04:41 by Silvestre Carvajal) DM2 (diabetes mellitus, type 2) GIB (gastrointestinal bleeding) Surgical History (Updated 10/21/20 @ 04:39 by Silvestre Carvajal) History of esophagogastroduodenoscopy (EGD) Social History Smoking Status: Former smoker Hx Alcohol Use: No Hx Substance Use: No Beliefs That Will Affect Care: None Current Living Situation: Family Other Information That Helps Us Care for You: No Feels Safe at Home: Yes Safety Concerns: Feels Safe At This Time Assistive Devices: None Review of Systems Constitutional: + fatigue; no fever, no chills, no sweats, no body aches and no malaise Eyes: + problem reported (occassional loss of vision?); no blind spots and no eye pain Respiratory: + dyspnea on exertion; no cough, no pain on inspiration and no wheezing Cardiovascular: + chest pain, + radiating jaw, neck or arm pain, + dyspnea on exertion, + palpitations, + lightheadedness, + syncope, + edema and + calf pain; no orthopnea Gastrointestinal: + abdominal pain, + heartburn, + nausea and + vomiting; no constipation, no diarrhea/loose stools and no blood in stools Musculoskeletal: + back pain and + myalgia Neurologic: + unsteadiness, + falls, + tingling, + numbness and + headache(s) Physical Exam Physical Exam: Constitutional: woman curled up in position in bed, tearful Eyes: EOMI, pupils equal and reactive bilaterally, no scleral icterus Cardiac: RRR, no murmurs, gallops or rubs. Normal S1, S2 Pulm: tight breath sounds with wheezes throughout Abd: soft, nontender, nondistended, normal bowel sounds, no rebound or guarding Extremities: 2+ peripheral pulses, no edema Neuro: no focal deficits, moving all 4 limbs, A&Ox3 Results & Data Results & Data ([facility]) Vital Signs (Past 12 Hours) Vital Signs Temp Pulse Pulse Resp BP BP Pulse Ox 10/19/20 19:30 20 129/78 98 10/19/20 19:00 96 H 12 139/92 98 10/19/20 18:30 100 H 22 125/85 98 10/19/20 18:01 91 H 18 114/74 98 10/19/20 17:30 96 H 22 145/82 H 10/19/20 17:00 94 H 15 103/75 10/19/20 16:39 91 H 13 129/84 10/19/20 16:00 96 H 17 137/94 97 10/19/20 15:02 104 H 19 98 10/19/20 15:01 106 H 17 143/89 H 98 10/19/20 14:30 104 H 20 181/84 H 99 10/19/20 14:17 99 H 14 98 10/19/20 14:16 101 H 15 136/94 98 10/19/20 14:00 102 H 20 200/160 H 98 10/19/20 13:52 101 H 18 165/93 H 99 10/19/20 13:51 101 H 12 165/93 H 99 10/19/20 13:37 104 H 18 10/19/20 13:25 36.8 C 110 H 18 169/93 H 96 Code Status & VTE Plan VTE Prophylaxis Plan VTE Prophylaxis will be ordered: Yes Supervising Physician Co-Signing Physician Notes Attending addendum: I have physically seen this patient, have supervised the medical residents activities, and agree with the H&P unless as otherwise noted. Assessment and Plan: Chest pain- The patient will be admitted to telemetry for serial cardiac enzymes, serial EKG's, cardiac rhythm monitoring and a 2-D echocardiogram with Dopplers. Check hemoglobin A1c and fasting lipid panel We will need a stress echo prior to discharge Diabetes mellitus-Lantus insulin as noted Hold 10 units Humalog with meals Placed on Accu-Cheks before meals and at bedtime with NovoLog coverage per scale Remaining orders and notations as noted Resident Activity Tracking Resident Involvement: Resident Care Provided Care Provided: Adult Hospital Medicine
[2020-10-19] MEDS ORDERED: CARBOHYDRATES FOR HYPOGLYCEMIA PO PRN (22:19)
[2020-10-19] MEDS ORDERED: GLUCOSE 40% GEL 15 GM TUBE PO PRN (22:19)
[2020-10-19] MEDS ORDERED: GLUCAGON FOR INJ 1 MG VIAL SQ PRN (22:19)
[2020-10-19] MEDS ORDERED: GLUCOSE 10 TABS/TUBE PO PRN (22:19)
[2020-10-19] MEDS ORDERED: INSULIN GLARGINE SOLOSTAR 100 UNITS/ML 3 ML PEN SC SCH (22:19)
[2020-10-19] MEDS ORDERED: DEXTROSE 50% 50 ML SYRINGE IV PRN (22:19)
[2020-10-19] MEDS: PANTOprazole 40 MG TAB PO SCH (22:52)
[2020-10-19] MEDS: CYCLOBENZAPRINE HCL 10 MG TAB PO SCH (22:52)
[2020-10-19] MEDS: rOPINIRole HCL 1 MG TABLET PO SCH (22:53)
[2020-10-19] MEDS: NORTRIPTYLINE HCL 25 MG CAP PO SCH (22:53)
[2020-10-19] MEDS: SUCRALFATE 1 GM TAB PO SCH (22:53)
[2020-10-19] MEDS: HEPARIN SOD 5,000 UNIT/0.5 ML VIAL SQ SCH (22:54)
[2020-10-19] MEDS: INSULIN ASPART 100 UNITS/ML 3 ML PEN SC SCH (22:57)
[2020-10-19] MEDS ORDERED: POLYETHYLENE (MIRALAX) 17 GM PACK PO PRN (23:12)
[2020-10-19] MEDS ORDERED: MAGNESIUM HYDROXIDE SUSP 30 ML UDC PO PRN (23:12)
[2020-10-19] MEDS ORDERED: NITROGLYCERIN SL 0.4 MG/TAB TAB SL PRN (23:12)
[2020-10-19] MEDS: ZOLPIDEM TARTRATE 10 MG TAB PO PRN (23:35)
[2020-10-20] MEDS ORDERED: LORazepam 1 MG/2 ML VIAL IV STA (00:44)
[2020-10-20] MEDS: ONDANSETRON INJ 2 MG/ML 2 ML VIAL IV PRN ×2 (00:56→16:56)
[2020-10-20] MEDS: ACETAMINOPHEN 325 MG TAB PO PRN ×2 (01:31→05:04)
[2020-10-20] MEDS: traMADol HCL 50 MG TABLET PO PRN ×3 (01:33→10:38)
[2020-10-20 02:03] LABS: Basophils # (auto) 0.02 K/uL (0-0.2); Basophils % (auto) 0.2 %; Eosinophils # (auto) 0.26 K/uL (0-0.5); Eosinophils % (auto) 2.9 %; Hematocrit (blood only) 37.3 % (37-47); Hemoglobin 12.6 g/dL (12.0-16.0); Immature Granulocytes # (auto) 0.02 K/uL (0.00-0.02); Immature Granulocytes % (auto) 0.2 %; Lymphocytes # (auto) 3.05 K/uL (1.2-3.4); Lymphocytes % (auto) 33.6 %; Mean Corpuscular Hemoglobin 28.8 pg (25-34); Mean Corpuscular Hgb Conc 33.8 g/dL (32-36); Mean Corpuscular Volume 85.4 fL (80-100); Mean Platelet Volume 9.4 fL (7.4-10.4); Monocytes # (auto) 0.65 K/uL (0.11-0.59); Monocytes % (auto) 7.2 %; Neutrophils # (auto) 5.08 K/uL (1.4-6.5); Neutrophils % (auto) 55.9 %; Platelet Count 270 K/uL (130-400); RDW Coefficient of Variation 12.7 % (11.5-14.5); RDW Standard Deviation 39.6 fL (36.4-46.3); Red Blood Count 4.37 M/uL (4.2-5.4); White Blood Count 9.08 K/uL (4.8-10.8)
[2020-10-20 02:21] LABS: BUN Creatinine Ratio 21.3 (10-20); Blood Urea Nitrogen 12 mg/dl (7-18); Calcium 8.5 mg/dl (8.5-10.1); Carbon Dioxide 29 mmol/L (21-32); Chloride 103 mmol/L (98-107); Est GFR (African American) 120.1; Est GFR (Non-African American) 103.6; Glucose 284 mg/dl (70-99); Potassium 3.7 mmol/L (3.5-5.1); Sodium 137 mmol/L (136-145)
[2020-10-20] MEDS: SODIUM CHLORIDE 0.9% 1000ML 1,000 ML IV SCH ×3 (02:33→16:29)
[2020-10-20 02:37] LABS: Chol HDL Ratio 6; Cholesterol 174 mg/dl (0-200); HDL Cholesterol 31 mg/dl; LDL Cholesterol Calculated 89 mg/dl; Triglycerides 272 mg/dl (0-150); Troponin I < 0.015 ng/ml (0-0.045); VLDL Cholesterol 54 mg/dl
[2020-10-20] MEDS: NORTRIPTYLINE HCL 25 MG CAP PO SCH ×2 (07:44→20:52)
[2020-10-20] MEDS: CYCLOBENZAPRINE HCL 10 MG TAB PO SCH ×2 (07:45→20:52)
[2020-10-20] MEDS: ASPIRIN 81 MG ECTAB PO SCH (07:45)
[2020-10-20] MEDS: PANTOprazole 40 MG TAB PO SCH ×2 (07:45→20:52)
[2020-10-20] MEDS: HEPARIN SOD 5,000 UNIT/0.5 ML VIAL SQ SCH ×2 (07:45→20:53)
[2020-10-20] MEDS: SUCRALFATE 1 GM TAB PO SCH ×4 (07:45→20:52)
[2020-10-20] MEDS: INSULIN ASPART 100 UNITS/ML 3 ML PEN SC SCH ×5 (07:56→20:54)
[2020-10-20] MEDS ORDERED: DOBUTamine HCL 12.5 MG/ML 20 ML VIAL IV ONE (09:38)
[2020-10-20] MEDS ORDERED: METOPROLOL TARTRATE 1 MG/ML VIAL IV ONE (09:38)
[2020-10-20] MEDS ORDERED: ATROPINE SULFATE 0.1 MG/ML 10ML SYR IV ONE (09:38)
[2020-10-20] MEDS: INSULIN GLARGINE SOLOSTAR 100 UNITS/ML 3 ML PEN SC SCH ×2 (10:36→20:54)
--- NOTE | 2020-10-20 13:22 | XCELERA ---
[id number]
[2020-10-20] MEDS: HYDROCODONE/ACETAMINOPHEN 7.5/325MG TAB PO PRN ×2 (15:15→20:51)
[2020-10-20] MEDS ORDERED: OPTIRAY 320 100ml IV ONE (17:47)
--- NOTE | 2020-10-20 18:20 | CT Scan Report ---
ABDOMEN AND PELVIS CT WITH IV AND ORAL CONTRAST CT DOSE: 888.47 mGycm HISTORY: left sided abd/flank pain; eval for intra-abd path TECHNIQUE: Multiaxial CT images of the abdomen and pelvis were performed following the use of intrave nous and oral contrast. A dose lowering technique was utilized adhering to the principles of ALARA. COMPARISON STUDY: None. FINDINGS: Faint groundglass densities within the lung bases. This favors mild dependent change. No pn eumoperitoneum. No pneumatosis. L5-S1 posterior decompression fusion with pedicle screws and rods. No fractures within the visualized osseous structures. Small focal areas of subcutaneous stranding and gas within the lower abdominal santos consistent with prior medication injection. Hepatic steatosis. C holecystectomy. The main portal vein is patent. The pancreas, spleen, adrenal glands, and kidneys are unremarkable. No hydronephrosis. Normal bladder. The uterus appears surgically absent. No retroperit mercado lymphadenopathy. Mild calcified plaque within the normal caliber abdominal aorta. No bowel wall thickening or obstruction. The appendix is not identified and reportedly surgically absent. IMPRESSION: 1. No bowel wall thickening or obstruction. 2. No hydronephrosis. 3. Hepatic steatosis. 4. Cholecystectomy. ACT 112: Negative or not required by law. Electronically signed by: Ernst Murray M.D. 10/20/2020 6:18 PM
--- NOTE | 2020-10-20 19:56 | Hospitalist Progress Note ---
Date of Service October 20, 2020 Assessment & Plan (1) Chest pain: chest pain is really LUQ abdominal pain. [id number] she underwent dobutamine stress echo this am. unfortunately she did not hit target HR as she only achieved 82% of MPHR. at that level no signs of ischemia seen. heart cath from 09/2019 reviewed - 30% LAD lesion seen, other minor blockages in other epicardial vessels seen. but nothing obstructive. "chest pain" has been present for 6-7 months and is constant & daily - unlikely to be cardiac in nature. CT abd/pelvis obtained today and no pathology seen. CT chest also reviewed - nothing to explain her chronic symptoms. norco prn pain k-pad heating pad (2) CAD (coronary artery disease): 09/2019 cath reviewed - nonobstructive CAD (30% lesions at most). continue asa. Rx high trigs. (3) Insulin dependent diabetes mellitus: awaiting a1c. cont lantus/novolog - adjust as needed. (4) Esophagitis determined by endoscopy: I do not have the EGD report but patient reports what sounds like severe esophagitis. Cont PPI and carafate. (5) History of lumbar surgery: decompression/fusion. check x-rays lumbar and t-spine - rule out hardware issues, rule out other potential causes of her presenting pain. (6) Gastroparesis: highly suspected. would benefit from outpatient gastric emptying study. could be contributing to presenting symptoms especially frequent N/V. (7) Abdominal pain: LUQ. s/p CT today - no pathology found. etiology? is due for outpatient colonoscopy - needs to see GI tyler post-d/c. gastroparesis?? (8) Diabetic neuropathy: cont nortriptyline (9) Restless leg syndrome: check ferritin level cont ropinirole (10) Benzodiazepine dependence: PDMP shows chronic, monthly prescriptions for ativan and ambien (11) History of tobacco use: quit (12) Hypertriglyceridemia: will discuss Rx with her especially in light of her CAD (13) DVT prophylaxis: heparin SC hopefully home tomorrow Admission and Anticipated Discharge Date Admission Date: October 19, 2020 Subjective patient recounts her history as below -- * left upper abdominal/costal margin pain - constant, present for 6-7 months or longer, radiates to the left flank and left lower back, worse with movement, occasionally radiates into the left chest/left neck/left arm, not worsened by eating; denies that supine positioning makes symptoms worse; not worsened by taking deep breaths * multiple hospital stays at other hospitals - [facility], [facility]; most recent stay [facility] * dx with what sounds like esophagitis on EGD at [facility]; placed on carafate + PPI * also told she had colitis * no CT of abd/pelvis to her knowledge * has frequent nausea/vomiting after eating - usually within 30 minutes of eating * diabetic x 6 years minimum - poor control over that time period * has neuropathy of hands/feet reports she is changing PCPs - going to secure a new PCP in [place] stress test results noted telemetry overnight - wnl Review of Systems Constitutional: + weight loss (20-30 pounds last year??); no fever, no chills and no fatigue Respiratory: no cough and no dyspnea Cardiovascular: as per Subjective / HPI and + chest pain; no edema Gastrointestinal: + abdominal pain, + nausea and + vomiting Musculoskeletal: + back pain Physical Exam Constitutional: no acute distress and no altered mental status ENMT: external ear and nose normal, oropharynx normal Mouth: + poor dentition Respiratory: normal respiratory effort, lungs clear to auscultation Cardiovascular: Rate/Rhythm: regular rate and regular rhythm Heart Sounds: normal S1 and normal S2; no murmur Vessels: posterior tibial pulses present and dorsalis pedis pulses present; no JVD Extremities: no edema Gastrointestinal (Abdomen): Inspection/Auscultation: normal bowel sounds; abdomen not distended Percussion/Palpation: + abdomen tender (Very tender LUQ to palpation; this extends to left flank ) and abdomen soft; no hepatosplenomegaly Musculoskeletal: Spine: thoracic spine normal to inspection, lumbar spine normal to inspection, + thoracic spinal tenderness (Lower T-spine segments), + lumbar spinal tenderness (Upper l-spine segments) and + paraspinal tenderness (Left ) Neurologic: deep tendon reflexes 2+ bilaterally and moves all extremities; no focal motor deficits Psychiatric: Orientation: alert and oriented x 3 Results & Data Results & Data ([facility]) Vital Signs (Past 12 Hours) Vital Signs Temp Pulse Pulse Resp BP BP Pulse Ox 10/20/20 19:08 36.8 C 89 16 133/82 95 10/20/20 15:35 36.8 C 92 H 16 154/91 H 96 10/20/20 15:00 91 H 10/20/20 11:14 36.4 C L 86 16 123/52 L 100 10/20/20 08:00 87 Laboratory Results Laboratory Results - last 24 hr 10/19/20 10/19/20 10/19/20 20:00 20:00 22:12 WBC RBC Hgb Hct MCV MCH MCHC RDW Std Deviation RDW Coeff of Maria Del Carmen Plt Count MPV Immature Gran % (Auto) Neut % (Auto) Lymph % (Auto) [place] % (Auto) Eos % (Auto) Baso % (Auto) Neut # (Auto) Lymph # (Auto) [place] # (Auto) Eos # (Auto) Baso # (Auto) Immature Gran # (Auto) Sodium Potassium Chloride Carbon Dioxide Anion Gap BUN Creatinine Est Cr Clr Drug Dosing Est GFR ( Amer) Est GFR (Non-Af Amer) BUN/Creatinine Ratio Glucose POC Glucose 277 H Estimat Average Glucose Hemoglobin A1c Calcium Troponin I Triglycerides Cholesterol LDL Cholesterol, Calc VLDL Cholesterol, Calc HDL Cholesterol Cholesterol/HDL Ratio COVID-19 Eval Order Covid19 [facility] SARS-CoV-2, RNA, NAAT NEGATIVE 10/20/20 10/20/20 10/20/20 01:51 01:54 01:54 WBC 9.08 RBC 4.37 Hgb 12.6 Hct 37.3 MCV 85.4 MCH 28.8 MCHC 33.8 RDW Std Deviation 39.6 RDW Coeff of Maria Del Carmen 12.7 Plt Count 270 MPV 9.4 Immature Gran % (Auto) 0.2 Neut % (Auto) 55.9 Lymph % (Auto) 33.6 [place] % (Auto) 7.2 Eos % (Auto) 2.9 Baso % (Auto) 0.2 Neut # (Auto) 5.08 Lymph # (Auto) 3.05 [place] # (Auto) 0.65 H Eos # (Auto) 0.26 Baso # (Auto) 0.02 Immature Gran # (Auto) 0.02 Sodium 137 Potassium 3.7 Chloride 103 Carbon Dioxide 29 Anion Gap 5.0 BUN 12 Creatinine 0.57 L Est Cr Clr Drug Dosing 103.0 Est GFR ( Amer) 120.1 Est GFR (Non-Af Amer) 103.6 BUN/Creatinine Ratio 21.3 H Glucose 284 H POC Glucose Estimat Average Glucose Pending Hemoglobin A1c Pending Calcium 8.5 D Troponin I < 0.015 Triglycerides 272 H Cholesterol 174 LDL Cholesterol, Calc 89 VLDL Cholesterol, Calc 54 HDL Cholesterol 31 Cholesterol/HDL Ratio 6 COVID-19 Eval Order SARS-CoV-2, RNA, NAAT 10/20/20 10/20/20 10/20/20 07:29 11:17 16:11 WBC RBC Hgb Hct MCV MCH MCHC RDW Std Deviation RDW Coeff of Maria Del Carmen Plt Count MPV Immature Gran % (Auto) Neut % (Auto) Lymph % (Auto) [place] % (Auto) Eos % (Auto) Baso % (Auto) Neut # (Auto) Lymph # (Auto) [place] # (Auto) Eos # (Auto) Baso # (Auto) Immature Gran # (Auto) Sodium Potassium Chloride Carbon Dioxide Anion Gap BUN Creatinine Est Cr Clr Drug Dosing Est GFR ( Amer) Est GFR (Non-Af Amer) BUN/Creatinine Ratio Glucose POC Glucose 186 H 153 H 177 H Estimat Average Glucose Hemoglobin A1c Calcium Troponin I Triglycerides Cholesterol LDL Cholesterol, Calc VLDL Cholesterol, Calc HDL Cholesterol Cholesterol/HDL Ratio COVID-19 Eval Order SARS-CoV-2, RNA, NAAT PG Care Time/CCT Total # of Minutes Spent Total Time Spent with Patient: Total time spent is greater than 50% in coordination of care (as documented) at patient's floor/unit and/or counseling patient: Coding Level of Care Code 78288 Subseq Obs Care Lvl 3 Diagnoses Chest pain R07.9 Chest pain type: unspecified CAD (coronary artery disease) I25.10 Insulin dependent diabetes mellitus Esophagitis determined by endoscopy K20.90 History of lumbar surgery Z98.890 Gastroparesis K31.84 Abdominal pain R10.9 Diabetic neuropathy E11.40 Restless leg syndrome G25.81 Benzodiazepine dependence F13.20 History of tobacco use Z87.891 Hypertriglyceridemia E78.1 DVT prophylaxis Z29.9 (1) Chest pain Chest pain type: unspecified Qualified Code(s): R07.9 - Chest pain, unspecified
[2020-10-20] MEDS: ZOLPIDEM TARTRATE 10 MG TAB PO PRN (20:51)
--- NOTE | 2020-10-20 20:51 | XRay Report ---
XR lumbar spine 2-3V, XR thoracic spine 2V CLINICAL HISTORY: back pain, prior L-spine surgery COMPARISON STUDY: Chest CTA 10/19/2020. Abdomen and pelvis CT 10/20/2020. FINDINGS: Posterior decompression and fusion at L5-S1 with pedicle screws and rods. The hardware appe ars intact. No fractures identified within the sacrum. Prior cholecystectomy. There is 5 mm of linda listhesis of L4 on L5. There is mild disc space narrowing at L4-L5. Remaining disc spaces within the lumbar spine are preserved. Mild facet degenerative changes within the L3-L4 and L4-L5 levels. No fra ctures within the thoracic or lumbar spine. Mild disc space narrowing within the mid thoracic spine. This is consistent with degenerative change. Paraspinal soft tissues are unremarkable. IMPRESSION: Mild degenerative disc disease within the mid thoracic and lower lumbar spine. No fractu res. ACT 112: Negative or not required by law. Electronically signed by: Enrst Murray M.D. 10/20/2020 8:50 PM
[2020-10-20] MEDS: rOPINIRole HCL 1 MG TABLET PO SCH (20:53)
[2020-10-21] MEDS: HYDROCODONE/ACETAMINOPHEN 7.5/325MG TAB PO PRN ×4 (04:34→17:39)
--- NOTE | 2020-10-21 05:17 | Billing Data ---
Date of Service October 21, 2020 Coding Level of Care Code 98108 OBS Care - Level 3
[2020-10-21 07:12] LABS: BUN Creatinine Ratio 16.7 (10-20); Calcium 9.5 mg/dl (8.5-10.1); Creatinine Clr Calc Pharmacy 104.2 ml/min; Est GFR (African American) 120.8; Est GFR (Non-African American) 104.2; Potassium 3.9 mmol/L (3.5-5.1)
[2020-10-21 07:16] LABS: Ferritin 49.8 ng/ml (8-388)
[2020-10-21 08:00] LABS: Estimated Average Glucose 295 mg/dl; Hemoglobin A1C 11.9 % (4.5-5.6)
[2020-10-21] MEDS: PANTOprazole 40 MG TAB PO SCH (08:25)
[2020-10-21] MEDS: CYCLOBENZAPRINE HCL 10 MG TAB PO SCH (08:26)
[2020-10-21] MEDS: NORTRIPTYLINE HCL 25 MG CAP PO SCH (08:26)
[2020-10-21] MEDS: SUCRALFATE 1 GM TAB PO SCH ×3 (08:26→16:28)
[2020-10-21] MEDS: HEPARIN SOD 5,000 UNIT/0.5 ML VIAL SQ SCH (08:26)
[2020-10-21] MEDS: ASPIRIN 81 MG ECTAB PO SCH (08:26)
[2020-10-21] MEDS: INSULIN ASPART 100 UNITS/ML 3 ML PEN SC SCH ×3 (08:29→16:51)
[2020-10-21] MEDS: INSULIN GLARGINE SOLOSTAR 100 UNITS/ML 3 ML PEN SC SCH (08:29)
[2020-10-21] MEDS ORDERED: ERGOCALCIFEROL 50,000 UNITS 1250 MCG CAP PO ONE (09:30)
[2020-10-21] MEDS: ONDANSETRON INJ 2 MG/ML 2 ML VIAL IV PRN (09:46)
[2020-10-21] MEDS ORDERED: METOCLOPRAMIDE HCL 10 MG TABLET PO STA (11:31)
[2020-10-21] MEDS ORDERED: METOCLOPRAMIDE HCL 5 MG TABLET PO SCH (16:30)
--- NOTE | 2020-10-21 17:32 | Discharge Summary ---
Date of Service date of admission - October 19, 2020 date of discharge - October 21, 2020 Admission HPI Per Admitting Provider 55-year-old female with a recent past medical history of EGD at [facility] for upper GI bleed, DM2, COPD, tobacco abuse. She presents to the hospital today with complaints of chest pain that has been ongoing for a few months. She states that it is sharp and stabbing in her front of her chest sometimes goes down her left arm and feels persistent. She denies any worsened pain or shortness of breath with exertion. She is unsure of what brings on the pain. She states that at this point she just "just wants relief" and is tearful when describing the pain being around the clock. She states that at some point someone told her that she had COPD but she has not been treated for this and no testing was done to confirm it. She does have a smoking history of approximately 1 pack per 2 days for 25 years. She recently quit smoking 6 months ago. She attest to having diabetes that she takes 40 units of Lantus at bedtime and 10 units of Humalog with meals. She states that she is currently in between primary care providers and has not seen cardiology despite being seen in multiple hospitals for complaints of chest pain. Per ED provider she did have a cardiac cath performed last year that showed approximately 30% stenosis and no intervention was performed. Principal Diagnosis 1. chest pain - no evidence of ACS; negative stress test. 2. back pain/left upper abdominal pain - referred pain from lumbar spine? Discharge Exam Constitutional well developed and well nourished; no acute distress and no altered mental status ENMT external ear and nose normal, oropharynx normal Respiratory normal respiratory effort, lungs clear to auscultation Cardiovascular Rate/Rhythm: regular rate and regular rhythm Heart Sounds: normal S1 and normal S2; no murmur Vessels: posterior tibial pulses present and dorsalis pedis pulses present; no JVD Extremities: no edema Gastrointestinal (Abdomen) Inspection/Auscultation: normal bowel sounds; abdomen not distended Percussion/Palpation: + abdomen tender (left upper quadrant, near the costal margin ) and abdomen soft; no guarding and no hepatosplenomegaly Musculoskeletal Spine: + lumbar spinal tenderness and + paraspinal tenderness (left ) Shoulder: + Hawkin's test positive (left; tender over subacromial bursal region) Neurologic deep tendon reflexes 2+ bilaterally and moves all extremities; no focal motor deficits Psychiatric Orientation: alert and oriented x 3 Affect: + anxious affect Discharge Data Allergies Allergy/AdvReac Type Severity Reaction Status Date / Time morphine Allergy Severe blisters Verified 10/19/20 17:42 in mouth Sulfa (Sulfonamide Allergy Severe rash/swelli Verified 10/19/20 17:42 Antibiotics) ng Ordered Studies 1. dobutamine stress echocardiogram: * no ischemic changes at 82% of MPHR; cannot rule out ischemic changes at faster heart rates as target HR was not attained. * hypertensive blood pressure response * no arrhythmia * chest pain reported at peak exercise; resolved in recovery * EF 60-65% * no regional wall motion abnormalities * normal valve function 2. 10/19/20 15:10 CTA chest dissec wo/w con [CT angio chest dissec wo/w con] Stat IMPRESSION: 1. Unremarkable CT angiogram of the thoracic aorta. 2. There is no evidence of pulmonary embolus in the main, lobar, or segmental pulmonary arteries. 3. Emphysema. 4. There is advanced coronary artery calcification. Consider nonemergent cardiology follow-up. 5. There is no lobar consolidation or pleural effusion. 6. Mild diffuse peribronchial thickening is noted and there are scattered tree-in-bud airspace opacities in the upper lobes. The appearance suggests bronchitis/ reactive airway disease and a minimal pneumonitis. Clinical correlation will be essential. 3. 10/20/20 14:54 CT abd pelvis oral and IV con Urgent IMPRESSION: 1. No bowel wall thickening or obstruction. 2. No hydronephrosis. 3. Hepatic steatosis. 4. Cholecystectomy. 4. Lumbar spine x-rays - FINDINGS: Posterior decompression and fusion at L5-S1 with pedicle screws and rods. The hardware appears intact. No fractures identified within the sacrum. Prior cholecystectomy. There is 5 mm of anterolisthesis of L4 on L5. There is mild disc space narrowing at L4-L5. Remaining disc spaces within the lumbar spine are preserved. Mild facet degenerative changes within the L3-L4 and L4-L5 levels. No fractures within the thoracic or lumbar spine. Mild disc space narrowing within the mid thoracic spine. This is consistent with degenerative change. Paraspinal soft tissues are unremarkable. Diabetes Follow up Diabetes Follow-up Needed for HgbA1c >9% Hospital Course (1) Chest pain: Chest pain was really LUQ abdominal pain and was reproducible on physical exam. [id number] she underwent dobutamine stress echo. Unfortunately she did not hit target HR as she only achieved 82% of MPHR. At that level no signs of ischemia were seen. Troponins were negative while here. Heart cath from 09/2019 reviewed - 30% LAD lesion seen, other minor blockages in other epicardial vessels seen. But nothing obstructive. Chest pain had been present for 6-7 months and was constant & daily - unlikely to be cardiac given the constant nature of the symptom. CT abd/pelvis was obtained and no pathology was seen. CT chest also obtained - nothing seen to explain her chronic symptoms (bronchial inflammation seen - from occasional aspiration from her vomiting??). Lumbar x-rays were obtained showing considerable DJD of lumbar spine. The pain in her left back does radiate into the left abdomen -- is her pain lumbar-related?? Will send to [facility] post-discharge for their opinion. Also sending to [facility] - see below. If alternative diagnoses are ruled out and pain persists she may need referral back to cardiology for consideration of diagnostic catheterization given her prior cath results. (2) DM2 (diabetes mellitus, type 2): HbA1C 11.9%. Uncontrolled for many years according to patient. She has hand/foot neuropathic symptoms. Suspect she also has diabetic gastroparesis - see below. She will continue her basaglar and will need referral to [facility] for ongoing care. She would benefit from bolus insulin. (3) Gastroparesis: Suspected. Could be contributing to chronic abdominal pain and post-prandial nausea/emesis. Trial of reglan given - helped symptoms Sent home with reglan 5mg AC. Asked to see [facility] for additional diagnostic testing (gastric emptying study, etc). (4) Nonobstructive atherosclerosis of coronary artery: 09/[address] Jossue Suarez. 30% LAD lesion seen during that cath. Other minor, nonobstructive lesions seen. Continue aspirin. May need repeat cath if patient's abdominal symptoms/"Chest" symptoms persist without alternative diagnosis. (5) Back pain: Left-sided paraspinal pain radiating to left flank/left costal margin. L-spine x-rays as noted above. Referral to [facility] post-d/c. Small amount of norco q4h prn given at discharge. Of note - PDMP shows frequent narcotic usage in the past for her back; meds prescribed by prior PCP but she is no longer seeing that provider. (6) Abdominal pain: Concern for gastroparesis. CT abd/pelvis negative for pathology. s/p fairly recent EGD at [facility] - esophagitis by her report. GI referral [facility]. (7) Status post spinal surgery: History of lumbar spine fusion. Hardware intact on x-rays this admission. (8) Vitamin D deficiency: Level 9.9. Ergocalciferol 50,000 units once weekly x 8 weeks. (9) Esophagitis: Diagnosed with such via EGD at [facility] sometime in the last few months. Records not available. Continue PPI twice daily. Continue carafate. I am concerned that she has diabetic gastroparesis. Has nausea and/or vomiting after many meals. Gave trial of reglan while here with good results. Discharged to home on 5mg AC of reglan and asked her to follow-up with [facility] - likely to need formal gastric emptying study to confirm diagnosis. Total Time Total Time Spent Total Time Spent (In Minutes): 60 Total Time Includes: Examination of the Patient, Discharge Planning and Medication Reconciliation Discharge Plan Discharge Items Patient Disposition: Home - Self-Care Reason For Visit: CHEST PAIN/Abdominal pain Discharge Diagnosis: 1. chest pain - negative stress test; no evidence of heart attack. 2. left-sided back pain/flank pain - uncertain cause; due to degenerative disease of the spine? to be determined. Please see the orthopedic spine doctor for more tests. 3. chronic nausea & vomiting - due to diabetic gastroparesis? Activity: Resume your previous activity Driving/Machine Use: NO DRIVING if using narcotic pain medication Non-emergency contact: Primary Care Provider, Specialist and Floor Plan Adjuster Call non-emergency contact if: you have any medication questions, your symptoms worsen and your pain is not controlled Follow-up/Referrals: Hernán Gonzalez DO [Physician] - 10/25/20 2:20 pm (first available appt; needs colonoscopy; also - ?diabetic gastroparesis?) Josue Veras MD [Physician] - 10/27/20 2:30 pm (first available appt; h/o L5/S1 fusion; ?left back/flank pain from lumbar or thoracic DJD?) Vince Vernon, DO [Outside Practitioners] - Diet: Carb Consistent or DM2 and Heart Healthy Addtl Attending Provider Instructions: Mrs Witt, You were treated for the problems listed above in "discharge diagnoses." A CAT scan of your abdomen/pelvis did not reveal any specific problem that would explain your symptoms. A CAT scan of the lungs also did not show the exact reason why you have been having pain in your chest and abdomen. A stress test was done to ensure your heart was not the cause of your pains. The stress test, EKG, and blood work for your heart would suggest that your heart is not the cause of your chest discomforts. Your back pain is worse with movement which suggests that the pain may be coming from your spine. Please follow-up with the spine surgeon for this. I have provided you a small amount of pain medication (narcotic pain killer) for your back pains. DO NOT DRIVE OR DRINK ALCOHOL while taking pain medication. Also, if you take the pain pills, do not take [id number]-roygyor tylenol as the pain killer has tylenol in it. The nausea/vomiting following meals may be something called "diabetic gastroparesis." See handout. I am recommending that you see the GI doctor with [place] for 2 reasons - one, to have a colonoscopy; two, to have testing to confirm a diagnosis of diabetic gastroparesis. While awaiting the GI referral please take - * metoclopramide 5mg -- take about 20-30 minutes before breakfast, 20-30 min before lunch, and same thing for dinner * eat small, frequent meals * limit the pain killer medication as the pain killer medication (hydrocodone) will WORSEN YOUR NAUSEA/VOMITING Finally, you have vitamin D deficiency. Take vitamin D capsule once a week for 8 weeks. Have your new family doctor repeat your vitamin D level in 2-3 months. Follow-up - see separate section Return to [facility] if - * you have worsening chest pains * you have worsening back pain that is not relieved with your pain medication * you have shortness of breath * any other concerns Feel better! -Dr Carvajal Pending Studies at Discharge: No Stand-Alone Forms: [employer] Smoking Cessation Medications and DC Order Prescriptions: New metoclopramide HCl 5 mg Tablet 5 mg PO AC Qty: 60 RF: 0 hydrocodone-acetaminophen 7.5-325 mg Tablet 1 tab PO Q4H PRN (Reason: pain) Qty: 10 RF: 0 ergocalciferol (vitamin D2) 1,250 mcg (50,000 unit) capsule 50,000 unit PO .weekly 56 Days Qty: 8 RF: 0 Continued cyclobenzaprine 10 mg Tablet 10 mg PO BID RF: 0 sucralfate 1 gram Tablet 1 g PO ACHS RF: 0 aspirin 81 mg Tablet,Delayed Release (Dr/Ec) 81 mg PO DAILY RF: 0 ropinirole 2 mg Tablet 4 mg PO HS RF: 0 pantoprazole 40 mg Tablet,Delayed Release (Dr/Ec) 40 mg PO BID RF: 0 albuterol 90 mcg/actuation Aerosol 90 mcg INHALATION QID PRN (Reason: Shortness Of Breath Or Wheezing) RF: 0 lorazepam [Ativan] 1 mg Tablet 1 mg PO TID RF: 0 zolpidem [Ambien] 10 mg Tablet 10 mg PO HS RF: 0 nortriptyline 50 mg Capsule 50 mg PO BID RF: 0 Basaglar KwikPen U-100 Insulin 100 unit/mL (3 mL) Insulin Pen 40 unit SUBCUT HS RF: 0 diclofenac sodium [Voltaren] 1 % Gel 1 g TOPICAL BID PRN (Reason: Pain) RF: 0 Discharge Orders: Discharge Order (Routine); Ordered 10/21/20 Ordered By: Silvestre Nava/Other Patient Handouts: Understanding Diabetic Gastroparesis Admission Data Admit Date/Time: 10/19/20 19:33 Attending Provider: Silvestre Carvajal Admit Provider: Aparna Grayson Primary Care Provider: PCP,NO Other Providers: Sangeeta Ko Other Interventions: Discharge Summary Assessment (RN) Last Done: 10/21/20 17:07 Coding Level of Care Code 87568 OBS Care - Discharge Diagnoses Chest pain R07.9 Chest pain type: unspecified DM2 (diabetes mellitus, type 2) E11.9 Gastroparesis K31.84 Nonobstructive atherosclerosis of coronary artery I25.10 Back pain M54.9 Abdominal pain R10.9 Status post spinal surgery Z98.890 Vitamin D deficiency E55.9 Esophagitis K20.90
== END 2020-10-21 18:00 | disposition home or self-care (01) ==
LOC: 2E 13:23 → ED 13:23 → SUATTDRO 19:33 → 2E 21:58

== ENCOUNTER 2021-01-24 07:56 | Inpatient (IN) ==
--- NOTE | 2021-01-24 08:08 | Emergency Department Note ---
History of Present Illness General Chief complaint: Chest Pain Time Seen by Provider: 01/24/21 08:03 Source: patient and EMS Mode of arrival: EMS Limitations: no limitations History of Present Illness This patient is a 55-year-old female who comes in after having nausea, decreased appetite, GI issues and chest pain. She is not eating for several days because she says she gets nauseated and throws up. She apparently was hospitalized in [place] a couple weeks ago and is not sure what they found. At that time she had thrown up blood but no vomiting of blood since then she says it is like coffee grounds. She not had a bowel movement for 3 days. Her chest pain hurts in her left shoulder when she breathes. She was noted to be in sinus tachycardia in the ambulance. The oven builder did give her 4 baby aspirin's prior to arrival as well as Zofran and 2 nitroglycerin spray without any change. She does feel somewhat short of breath at times. She is felt lightheaded and dizzy but has had no syncope or trauma. No blood or melena in her stool. She does have a history of diabetes for which she takes insulin and her blood sugar was 292 today she says she cannot hold down her pills. Denies significant abdominal pain but just feels more nauseated Home Medications Medication Instructions Recorded Confirmed Type Lillian Willard U-100 Insulin 40 unit SUBCUT HS 10/19/20 01/24/21 History albuterol 90 mcg INHALATION QID PRN 10/19/20 01/24/21 History aspirin 81 mg PO DAILY 10/19/20 01/24/21 History cyclobenzaprine 10 mg PO BID 10/19/20 01/24/21 History diclofenac sodium [Voltaren] 1 g TOPICAL BID PRN 10/19/20 01/24/21 History lorazepam [Ativan] 1 mg PO TID 10/19/20 01/24/21 History nortriptyline 50 mg PO BID 10/19/20 01/24/21 History pantoprazole 40 mg PO BID 10/19/20 01/24/21 History ropinirole 4 mg PO HS 10/19/20 01/24/21 History sucralfate 1 g PO ACHS 10/19/20 01/24/21 History zolpidem [Ambien] 10 mg PO HS 10/19/20 01/24/21 History metoclopramide HCl 5 mg PO AC #60 tab 10/21/20 01/24/21 Rx lancets #100 ea 11/12/20 11/12/20 History amitriptyline 25 mg PO HS 01/24/21 01/24/21 History amoxicillin-pot clavulanate 1 tab PO BID 01/24/21 01/24/21 History atorvastatin 40 mg PO PM 01/24/21 01/24/21 History ergocalciferol (vitamin D2) 1,250 mcg PO WK 01/24/21 01/24/21 History lisinopril 10 mg PO DAILY 01/24/21 01/24/21 History ondansetron 4 mg PO TID PRN 01/24/21 01/24/21 History Allergies Allergy/AdvReac Type Severity Reaction Status Date / Time morphine Allergy Severe blisters Verified 01/24/21 08:53 in mouth Sulfa (Sulfonamide Allergy Severe rash/swelli Verified 01/24/21 08:53 Antibiotics) ng Past Med/Surg History Medical History (Updated 01/24/21 @ 14:38 by Miguel Randhawa MD) Chest pain Chronic back pain Depression DM2 (diabetes mellitus, type 2) Gastritis GIB (gastrointestinal bleeding) Hyperlipidemia Insulin dependent diabetes mellitus Seizures Surgical History (Updated 01/24/21 @ 12:19 by Silvestre Carvajal) History of cardiac cath done at [facility]; ~2019; no CAD? History of esophagogastroduodenoscopy (EGD) Family History (Updated 01/24/21 @ 12:10 by Silvestre Carvajal) Mother , age 63 Myocardial infarction Father , age 68 or 69 Myocardial infarction Brother S/P CABG (coronary artery bypass graft) Sister Myocardial infarction x 3; she is 57yo Social History (Updated 01/24/21 @ 12:18 by Silvestre Carvajal) Smoking Status: Never smoker packs per day: 1; Years Smoked: 20; Smoking End Date: 07/2020; Do You Dip or Chew Tobacco: No; Hx Alcohol Use: No Hx Substance Use: Yes Substance Use Type Other:: medical marijuana Preferred Language: Syriac Communication Ability: Effective Cone Tender Required: No Beliefs That Will Affect Care: None marital status: Current Living Situation: Spouse 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 Normal speech HEENT: Normal cephalic atraumatic. Pupils are equal round and reactive to light. Extraocular movements are intact. Oropharynx is pink with moist mucous membranes. No swelling of the mouth lips or tongue. Neck: Supple with a midline trachea. No meningeal signs or stiffness, no JVD or bruits. No Stridor. Chest: Clear to auscultation bilaterally. No wheezes or rhonchi. No increased work of breathing. Heart: Regular rate and rhythm but tachycardic with a sinus tachycardia at about 120 seen on the monitor without murmurs or gallops. Abdomen: Soft nontender, nondistended without rebound guarding or rigidity. Extremities: No cyanosis clubbing or edema. No calf tenderness or assymetry Spine/Back. Non tender to palpation. No CVA tenderness Skin: Good turgor without rashes. Neurologic exam: Cranial nerves two through 12 are intact. Motor and sensation are intact and symmetrical throughout. Physical Exam Vital Signs Vital Signs - 24 hr 01/24/21 08:03 01/24/21 08:07 01/24/21 08:14 Temperature 36.9 C Temperature Source Oral Pulse Rate 189 H 120 H Pulse Rate [Apical] Pulse Rate from SpO2 Sensor 114 H Respiratory Rate 20 18 Respiratory Effort / Characteristics Respiratory Depth Respiratory Pattern Blood Pressure 143/70 H 143/70 H Blood Pressure [Left Arm] Blood Pressure Mean 94 94 Blood Pressure Mean [Left Arm] Pulse Oximetry 97 99 94 Oxygen Delivery Method Room Air Room Air Sepsis Recent Fever Within 48 Hours No Sepsis New/Unexplained Change in Mental Status N/A Sepsis Action Taken by Nursing No Action Required 01/24/21 08:31 01/24/21 08:38 01/24/21 09:57 Temperature Temperature Source Pulse Rate 216 H 100 H Pulse Rate [Apical] 113 H Pulse Rate from SpO2 Sensor 107 H 100 H Respiratory Rate 18 20 18 Respiratory Effort / Characteristics Non-Labored Spontaneous Respiratory Depth Normal Respiratory Pattern Regular Blood Pressure 141/84 H 203/100 H Blood Pressure [Left Arm] 141/84 H Blood Pressure Mean 103 134 Blood Pressure Mean [Left Arm] 103 Pulse Oximetry 99 98 95 Oxygen Delivery Method Room Air Sepsis Recent Fever Within 48 Hours Sepsis New/Unexplained Change in Mental Status Sepsis Action Taken by Nursing 01/24/21 10:30 01/24/21 11:09 01/24/21 12:47 Temperature Temperature Source Pulse Rate 105 H Pulse Rate [Apical] 106 H 99 H Pulse Rate from SpO2 Sensor 105 H Respiratory Rate 18 20 18 Respiratory Effort / Characteristics Respiratory Depth Respiratory Pattern Blood Pressure 199/85 H Blood Pressure [Left Arm] 207/134 H 162/89 H Blood Pressure Mean 123 Blood Pressure Mean [Left Arm] 158 113 Pulse Oximetry 96 94 95 Oxygen Delivery Method Room Air Room Air Sepsis Recent Fever Within 48 Hours Sepsis New/Unexplained Change in Mental Status Sepsis Action Taken by Nursing Course Administered Medications Discontinued Medications Hydromorphone HCl (Hydromorphone Inj 0.5 Mg/0.5 Ml Syr) 0.5 mg IV NOW STA Stop: 01/24/21 08:36 Last Admin: 01/24/21 08:40 Dose: 0.5 mg Documented by: [id number] Hydromorphone HCl (Hydromorphone Inj 0.5 Mg/0.5 Ml Syr) 0.5 mg IV NOW STA Stop: 01/24/21 10:50 Last Admin: 01/24/21 11:04 Dose: 0.5 mg Documented by: [id number] Sodium Chloride (Nss 1000ml) 1,000 mls @ 999 mls/hr IV .Q1H1M STA Stop: 01/24/21 09:09 Last Infusion: 01/24/21 09:39 Dose: 0 mls/hr Documented by: [id number] Admin: 01/24/21 08:31 Dose: 999 mls/hr Documented by: [id number] Lorazepam (Ativan) 0.5 mg in 1 mls @ 1 mls/min IV NOW STA Stop: 01/24/21 13:06 Last Admin: 01/24/21 13:21 Dose: 1 mls/min Documented by: [id number] Ioversol (Optiray 350 500ml) 120 ml IV ONCE ONE Stop: 01/24/21 09:43 Last Admin: 01/24/21 09:42 Dose: 120 ml Documented by: [id number] Ondansetron HCl (Ondansetron Inj 2 Mg/Ml 2 Ml Vial) 4 mg IV NOW STA Stop: 01/24/21 08:36 Last Admin: 01/24/21 08:39 Dose: 4 mg Documented by: [id number] Ondansetron HCl (Ondansetron Inj 2 Mg/Ml 2 Ml Vial) 4 mg IV NOW STA Stop: 01/24/21 10:03 Last Admin: 01/24/21 10:09 Dose: 4 mg Documented by: [id number] Ondansetron HCl (Ondansetron Inj 2 Mg/Ml 2 Ml Vial) 4 mg IV NOW STA Stop: 01/24/21 10:50 Last Admin: 01/24/21 11:04 Dose: 4 mg Documented by: [id number] Medical Decision Making Differential Diagnosis Acute coronary syndrome, anemia, dehydration, electrolyte or metabolic abnorm ality, PE, dehydration, arrhythmia, GI bleed, Covid Medical Records Attestation: I reviewed the patient's medical records. Home Medications Current Medication List: was personally reviewed by me Laboratory Data Attestation: I reviewed the patient's lab results. Result diagrams: 01/24/21 08:33 01/24/21 08:33 Lab Results 01/24/21 01/24/21 01/24/21 Range/Units 08:33 08:33 08:33 WBC 18.26 H (4.8-10.8) K/uL RBC 5.78 H (4.2-5.4) M/uL Hgb 16.7 H (12.0-16.0) g/dL Hct 47.2 H (37-47) % MCV 81.7 (80-100) fL MCH 28.9 (25-34) pg MCHC 35.4 (32-36) g/dL RDW Std Deviation 38.1 (36.4-46.3) fL RDW Coeff of Maria Del Carmen 12.9 (11.5-14.5) % Plt Count 429 H (130-400) K/uL MPV 10.1 (7.4-10.4) fL Immature Gran % (Auto) 0.3 % Neut % (Auto) 84.0 % Lymph % (Auto) 11.8 % Isabela % (Auto) 3.7 % Eos % (Auto) 0.1 % Baso % (Auto) 0.1 % Neut # (Auto) 15.35 H (1.4-6.5) K/uL Lymph # (Auto) 2.16 (1.2-3.4) K/uL Isabela # (Auto) 0.67 H (0.11-0.59) K/uL Eos # (Auto) 0.01 (0-0.5) K/uL Baso # (Auto) 0.02 (0-0.2) K/uL Immature Gran # (Auto) 0.05 H (0.00-0.02) K/uL APTT 22.5 (21.0-31.0) Seconds PTT Ratio 0.9 Sodium 130 L (136-145) mmol/L Potassium 4.5 (3.5-5.1) mmol/L Chloride 94 L (98-107) mmol/L Carbon Dioxide 24 (21-32) mmol/L Anion Gap 11.0 (3-11) BUN 13 (7-18) mg/dl Creatinine 0.85 (0.6-1.2) mg/dl Est Cr Clr Drug Dosing 68.7 ml/min Est GFR ( Amer) 88.8 ml/min Est GFR (Non-Af Amer) 76.6 ml/min BUN/Creatinine Ratio 15.2 (10-20) Glucose 327 H* (70-99) mg/dl Lactate (0.4-2.0) mmol/L Calcium 10.0 (8.5-10.1) mg/dl Phosphorus (2.5-4.9) mg/dl Magnesium (1.8-2.4) mg/dl Total Bilirubin 1.0 (0.2-1) mg/dl AST 9 L (15-37) U/L ALT 25 (12-78) U/L Alkaline Phosphatase 112 (45-117) U/L Troponin I < 0.015 (0-0.045) ng/ml Total Protein 9.7 H (6.4-8.2) gm/dl Albumin 5.1 H (3.4-5.0) gm/dl Globulin 4.6 H (2.5-4.0) gm/dl Albumin/Globulin Ratio 1.1 (0.9-2) Lipase 48 L (73-393) U/L Beta-Hydroxybutyric Acd 3.80 H (0.2-2.81) mg/dl TSH (0.300-4.500) uIu/ml COVID-19 Eval Order SARS-CoV-2 (PCR) (Negative) Blood Type Antibody Screen 01/24/21 01/24/21 01/24/21 Range/Units 08:33 08:36 10:53 WBC (4.8-10.8) K/uL RBC (4.2-5.4) M/uL Hgb (12.0-16.0) g/dL Hct (37-47) % MCV (80-100) fL MCH (25-34) pg MCHC (32-36) g/dL RDW Std Deviation (36.4-46.3) fL RDW Coeff of Maria Del Carmen (11.5-14.5) % Plt Count (130-400) K/uL MPV (7.4-10.4) fL Immature Gran % (Auto) % Neut % (Auto) % Lymph % (Auto) % Isabela % (Auto) % Eos % (Auto) % Baso % (Auto) % Neut # (Auto) (1.4-6.5) K/uL Lymph # (Auto) (1.2-3.4) K/uL Isabela # (Auto) (0.11-0.59) K/uL Eos # (Auto) (0-0.5) K/uL Baso # (Auto) (0-0.2) K/uL Immature Gran # (Auto) (0.00-0.02) K/uL APTT (21.0-31.0) Seconds PTT Ratio Sodium (136-145) mmol/L Potassium (3.5-5.1) mmol/L Chloride (98-107) mmol/L Carbon Dioxide (21-32) mmol/L Anion Gap (3-11) BUN (7-18) mg/dl Creatinine (0.6-1.2) mg/dl Est Cr Clr Drug Dosing ml/min Est GFR ( Amer) ml/min Est GFR (Non-Af Amer) ml/min BUN/Creatinine Ratio (10-20) Glucose (70-99) mg/dl Lactate 1.8 (0.4-2.0) mmol/L Calcium (8.5-10.1) mg/dl Phosphorus 3.4 (2.5-4.9) mg/dl Magnesium 2.1 (1.8-2.4) mg/dl Total Bilirubin (0.2-1) mg/dl AST (15-37) U/L ALT (12-78) U/L Alkaline Phosphatase (45-117) U/L Troponin I (0-0.045) ng/ml Total Protein (6.4-8.2) gm/dl Albumin (3.4-5.0) gm/dl Globulin (2.5-4.0) gm/dl Albumin/Globulin Ratio (0.9-2) Lipase (73-393) U/L Beta-Hydroxybutyric Acd (0.2-2.81) mg/dl TSH 1.120 (0.300-4.500) uIu/ml COVID-19 Eval Order SARS-CoV-2 (PCR) (Negative) Blood Type AB Positive Antibody Screen NEGATIVE 01/24/21 01/24/21 Range/Units 11:10 11:10 WBC (4.8-10.8) K/uL RBC (4.2-5.4) M/uL Hgb (12.0-16.0) g/dL Hct (37-47) % MCV (80-100) fL MCH (25-34) pg MCHC (32-36) g/dL RDW Std Deviation (36.4-46.3) fL RDW Coeff of Maria Del Carmen (11.5-14.5) % Plt Count (130-400) K/uL MPV (7.4-10.4) fL Immature Gran % (Auto) % Neut % (Auto) % Lymph % (Auto) % Isabela % (Auto) % Eos % (Auto) % Baso % (Auto) % Neut # (Auto) (1.4-6.5) K/uL Lymph # (Auto) (1.2-3.4) K/uL Isabela # (Auto) (0.11-0.59) K/uL Eos # (Auto) (0-0.5) K/uL Baso # (Auto) (0-0.2) K/uL Immature Gran # (Auto) (0.00-0.02) K/uL APTT (21.0-31.0) Seconds PTT Ratio Sodium (136-145) mmol/L Potassium (3.5-5.1) mmol/L Chloride (98-107) mmol/L Carbon Dioxide (21-32) mmol/L Anion Gap (3-11) BUN (7-18) mg/dl Creatinine (0.6-1.2) mg/dl Est Cr Clr Drug Dosing ml/min Est GFR ( Amer) ml/min Est GFR (Non-Af Amer) ml/min BUN/Creatinine Ratio (10-20) Glucose (70-99) mg/dl Lactate (0.4-2.0) mmol/L Calcium (8.5-10.1) mg/dl Phosphorus (2.5-4.9) mg/dl Magnesium (1.8-2.4) mg/dl Total Bilirubin (0.2-1) mg/dl AST (15-37) U/L ALT (12-78) U/L Alkaline Phosphatase (45-117) U/L Troponin I (0-0.045) ng/ml Total Protein (6.4-8.2) gm/dl Albumin (3.4-5.0) gm/dl Globulin (2.5-4.0) gm/dl Albumin/Globulin Ratio (0.9-2) Lipase (73-393) U/L Beta-Hydroxybutyric Acd (0.2-2.81) mg/dl TSH (0.300-4.500) uIu/ml COVID-19 Eval Order Covid19 at [facility] SARS-CoV-2 (PCR) NEGATIVE (Negative) Blood Type Antibody Screen Imaging Data Attestation: I personally reviewed and interpreted this imaging study as follows: My Impression: Chest x-rayno free air. No acute infiltrate, failure, pneumothorax seen Radiologist's Impression: Chest X-Ray 01/24/21 08:09 XR chest 1V portable HISTORY: Atypical Chest Pain COMPARISON: Chest 10/19/2020. FINDINGS: The lungs are clear. Cardiac silhouette is normal in size. No pleural effusions. No pneumothorax. IMPRESSION: No acute process. ACT 112: Negative or not required by law. Electronically signed by: Ernst Murray M.D. 01/24/2021 8:59 AM Abdomen/Pelvis CT 01/24/21 09:23 CT OF THE ABDOMEN AND PELVIS WITH CONTRAST CLINICAL HISTORY: Nausea. Shortness of breath. COMPARISON STUDY: CT of the abdomen and pelvis October 20, 2020. TECHNIQUE: Following IV administration of 120 mL of Optiray, axial images of the abdomen and pelvis were obtained from the lung bases to the proximal femurs. Images were reviewed in the axial, sagittal, and coronal planes. IV contrast was administered without complication. Automated exposure control was utilized for the study. A dose lowering technique was utilized adhering to the principles of ALARA. FINDINGS: Please note that the chest CT will be reported separately. No pneumatosis, free air or portal venous gas is present. There is no biliary ductal dilatation status post cholecystectomy. The spleen, adrenal glands, kidneys and pancreas are unremarkable. There is hepatic steatosis. There are no hepatic lesions. No hydronephrosis is present. Caliber and wall thickness of sma ll and large bowel are normal. There is no ascites or lymphadenopathy. There is moderate atherosclerotic plaque of the abdominal aorta which is normal in caliber. No ascites is present. No acute fracture or suspicious lesion is identified within the visualized skeletal structures. Postoperative findings at the lumbosacral junction are noted. The appendix is not visualized. IMPRESSION: 1. No acute process within the abdomen or pelvis. 2. No bowel obstruction. No bowel wall thickening. 3. Hepatic steatosis. ACT 112: Negative or not required by law. Electronically signed by: Wilver Powell M.D. 01/24/2021 10:19 AM Chest CTA 01/24/21 09:23 CT ANGIOGRAM OF THE CHEST CLINICAL HISTORY: Atypical chest pain. Nausea and vomiting. COMPARISON STUDY: Chest x-ray dated 01/24/2021. Chest CT dated 10/19/2020. TECHNIQUE: Following the IV administration of 120 cc of Optiray 350, CT angiogram of the chest was performed from the upper abdomen to the thoracic inlet utilizing the pulmonary embolus protocol. Images are reviewed in the a xial, sagittal, and coronal planes. 3-D MIPS images are created and assessed. IV contrast was administered without complication. A dose lowering technique was utilized adhering to the principles of ALARA. CT DOSE: 950.09 mGy.cm FINDINGS: Thyroid: Imaged portions of the thyroid gland are normal in size and attenuation. Thoracic aorta: There is mild atherosclerotic calcification of the thoracic aorta, which is normal in caliber and bovine variant arch anatomy. No dissection is seen. Pulmonary vasculature: The pulmonary trunk is normal in caliber. There are no filling defects identified in main, lobar, or segmental pulmonary branches to suggest pulmonary embolus. Heart: The heart is normal in size and without pericardial effusion. There are coronary artery calcifications. Lungs and pleural spaces: Evaluation of the lung parenchyma is degraded by motion artifact. Emphysematous change is noted. Minimal secretions are noted in the trachea. No airspace consolidation or pleural effusion is identified. Dependent atelectasis is seen at both lung bases. There are scattered calcified granulomas. Mediastinum: There is no mediastinal lymphadenopathy. [place]: Clear. Axillae: There is no axillary lymphadenopathy. Upper abdomen: Cholecystectomy clips are noted. There is a small hiatal hernia. Skeletal structures: No lytic or blastic bony lesions are seen. IMPRESSION: 1. There is no evidence of pulmonary embolus in the main, lobar, or segmental pulmonary arteries. 2. Emphysema. 3. There is no airspace consolidation or pleural effusion. ACT 112: Negative or not required by law. Electronically signed by: Finn Bradshaw M.D. 01/24/2021 10:20 AM ECG Data Indication: + chest pain, + tachycardia and + vomiting Rate (beats per minute): 122 Rhythm: + sinus tachycardia ECG Intervals/blocks: + Normal QRS, + Normal QT and + Normal SD ECG [place]: + Normal ECG ST segments: + Normal ST segments ECG Findings: no Q waves Comparison ECG Date: from (10/31/20) Change: no significant change MDM Narrative This patient comes in described above. She was placed on a alarm security or surveillance monitor in room a 9. She is here for treatment and evaluation of chest pain nausea vomiting she has had a GI illness with rapid heart rate this been going on for several weeks. She was seen in [place]. She has stable blood pressure although she is a little tachycardic. IV access was established and she was hydrated with 1 L IV normal saline bolus. Multiple blood testing was obtained. She was reassessed frequently. She does have an elevated white count at 18,000 so I did add blood cultures and lactic acid. Her blood sugar was also elevated at 375 however she is not acidotic. Chest x-ray was clear. CT of the chest shows no PE. CT of the abdomen was unremarkable. Troponin is normal. I do not think is likely cardiac. It may be related to gastroparesis or she does not feel she can eat or drink anything she is on multiple rounds of IV antinausea medication. She does not feel she is okay to go home tonight. I did consult Dr. Carvajal to see her in the ER. Covid testing was negative as well. Continuous cardiac monitoring: Orders placed in EMR for continuous cardiac monitoring. Upon my interpretation, the patient was noted to be in sinus tachycardia with a rate of 120. Impression & Plan Chest pain, Gastroparesis, Lab test negative for COVID-19 virus, Vomiting Discharge Plan Visit Data Chief Complaint: Chest Pain ED Provider: Miguel Randhawa Discharge Problem: Chest pain, Gastroparesis, Lab test negative for COVID-19 virus, Vomiting Patient Disposition: Admitted As Inpatient Discharge Instructions Interventions: ED Discharge Assessment Last Done: 01/24/21 13:41 Discharge Problem: Chest pain Qualifiers: Chest pain type: precordial pain Qualified Code(s): R07.2 - Precordial pain Vomiting Qualifiers: Vomiting type: unspecified Vomiting Intractability: intractable Nausea presence: with nausea Qualified Code(s): R11.2 - Nausea with vomiting, unspecified
[2021-01-24] MEDS ORDERED: SODIUM CHLORIDE 0.9% 1000ML 1,000 ML IV STA (08:09)
[2021-01-24] MEDS ORDERED: HYDROmorphone INJ 0.5 MG/0.5 ML SYR IV STA ×2 (08:35→10:49)
[2021-01-24] MEDS ORDERED: ONDANSETRON INJ 2 MG/ML 2 ML VIAL IV STA ×3 (08:35→10:49)
[2021-01-24 08:45] LABS: Basophils # (auto) 0.02 K/uL (0-0.2); Basophils % (auto) 0.1 %; Eosinophils # (auto) 0.01 K/uL (0-0.5); Eosinophils % (auto) 0.1 %; Hematocrit (blood only) 47.2 % (37-47); Hemoglobin 16.7 g/dL (12.0-16.0); Immature Granulocytes # (auto) 0.05 K/uL (0.00-0.02); Immature Granulocytes % (auto) 0.3 %; Lymphocytes # (auto) 2.16 K/uL (1.2-3.4); Lymphocytes % (auto) 11.8 %; Mean Corpuscular Hemoglobin 28.9 pg (25-34); Mean Corpuscular Hgb Conc 35.4 g/dL (32-36); Mean Corpuscular Volume 81.7 fL (80-100); Mean Platelet Volume 10.1 fL (7.4-10.4); Monocytes # (auto) 0.67 K/uL (0.11-0.59); Monocytes % (auto) 3.7 %; Neutrophils # (auto) 15.35 K/uL (1.4-6.5); Platelet Count 429 K/uL (130-400); RDW Coefficient of Variation 12.9 % (11.5-14.5); RDW Standard Deviation 38.1 fL (36.4-46.3); Red Blood Count 5.78 M/uL (4.2-5.4); White Blood Count 18.26 K/uL (4.8-10.8)
--- NOTE | 2021-01-24 09:00 | XRay Report ---
XR chest 1V portable HISTORY: Atypical Chest Pain COMPARISON: Chest 10/19/2020. FINDINGS: The lungs are clear. Cardiac silhouette is normal in size. No pleural effusions. No pneumot horax. IMPRESSION: No acute process. ACT 112: Negative or not required by law. Electronically signed by: Ernst Murray M.D. 01/24/2021 8:59 AM
[2021-01-24 09:03] LABS: Partial Thromboplastin Ratio 0.9; Partial Thromboplastin Time 22.5 Seconds (21.0-31.0)
[2021-01-24 09:10] LABS: Blood Urea Nitrogen 13 mg/dl (7-18); Carbon Dioxide 24 mmol/L (21-32); Chloride 94 mmol/L (98-107); Potassium 4.5 mmol/L (3.5-5.1); Sodium 130 mmol/L (136-145)
[2021-01-24 09:11] LABS: Alanine Aminotransferase 25 U/L (12-78); Albumin Level 5.1 gm/dl (3.4-5.0); Aspartate Aminotransferase 9 U/L (15-37); BUN Creatinine Ratio 15.2 (10-20); Creatinine Clr Calc Pharmacy 68.7 ml/min; Est GFR (African American) 88.8 ml/min; Est GFR (Non-African American) 76.6 ml/min; Glucose 327 mg/dl (70-99); Lipase 48 U/L (73-393)
[2021-01-24 09:14] LABS: Albumin Globulin Ratio 1.1 (0.9-2); Alkaline Phosphatase 112 U/L (45-117); Globulin 4.6 gm/dl (2.5-4.0); Total Protein 9.7 gm/dl (6.4-8.2); Troponin I < 0.015 ng/ml (0-0.045)
[2021-01-24] MEDS ORDERED: OPTIRAY 350 500ml IV ONE (09:42)
--- NOTE | 2021-01-24 10:21 | CT Scan Report ---
CT OF THE ABDOMEN AND PELVIS WITH CONTRAST CLINICAL HISTORY: Nausea. Shortness of breath. COMPARISON STUDY: CT of the abdomen and pelvis October 20, 2020. TECHNIQUE: Following IV administration of 120 mL of Optiray, axial images of the abdomen and pelvis w ere obtained from the lung bases to the proximal femurs. Images were reviewed in the axial, sagittal, and coronal planes. IV contrast was administered without complication. Automated exposure control w as utilized for the study. A dose lowering technique was utilized adhering to the principles of ALAAlejandra Summers. FINDINGS: Please note that the chest CT will be reported separately. No pneumatosis, free air or port al venous gas is present. There is no biliary ductal dilatation status post cholecystectomy. The sple en, adrenal glands, kidneys and pancreas are unremarkable. There is hepatic steatosis. There are no h epatic lesions. No hydronephrosis is present. Caliber and wall thickness of small and large bowel are normal. There is no ascites or lymphadenopathy. There is moderate atherosclerotic plaque of the abdo brandi aorta which is normal in caliber. No ascites is present. No acute fracture or suspicious lesion is identified within the visualized skeletal structures. Postoperative findings at the lumbosacral j unction are noted. The appendix is not visualized. IMPRESSION: 1. No acute process within the abdomen or pelvis. 2. No bowel obstruction. No bowel wall thickening. 3. Hepatic steatosis. ACT 112: Negative or not required by law. Electronically signed by: Wilver Powell M.D. 01/24/2021 10:19 AM
--- NOTE | 2021-01-24 10:22 | CT Scan Report ---
CT ANGIOGRAM OF THE CHEST CLINICAL HISTORY: Atypical chest pain. Nausea and vomiting. COMPARISON STUDY: Chest x-ray dated 01/24/2021. Chest CT dated 10/19/2020. TECHNIQUE: Following the IV administration of 120 cc of Optiray 350, CT angiogram of the chest was pe rformed from the upper abdomen to the thoracic inlet utilizing the pulmonary embolus protocol. Images are reviewed in the axial, sagittal, and coronal planes. 3-D MIPS images are created and assessed. I V contrast was administered without complication. A dose lowering technique was utilized adhering to the principles of ALARA. CT DOSE: 950.09 mGy.cm FINDINGS: Thyroid: Imaged portions of the thyroid gland are normal in size and attenuation. Thoracic aorta: There is mild atherosclerotic calcification of the thoracic aorta, which is normal in caliber and bovine variant arch anatomy. No dissection is seen. Pulmonary vasculature: The pulmonary trunk is normal in caliber. There are no filling defects identif ied in main, lobar, or segmental pulmonary branches to suggest pulmonary embolus. Heart: The heart is normal in size and without pericardial effusion. There are coronary artery calcif ications. Lungs and pleural spaces: Evaluation of the lung parenchyma is degraded by motion artifact. Emphysema tous change is noted. Minimal secretions are noted in the trachea. No airspace consolidation or pleur al effusion is identified. Dependent atelectasis is seen at both lung bases. There are scattered calc ified granulomas. Mediastinum: There is no mediastinal lymphadenopathy. [place]: Clear. Axillae: There is no axillary lymphadenopathy. Upper abdomen: Cholecystectomy clips are noted. There is a small hiatal hernia. Skeletal structures: No lytic or blastic bony lesions are seen. IMPRESSION: 1. There is no evidence of pulmonary embolus in the main, lobar, or segmental pulmonary arteries. 2. Emphysema. 3. There is no airspace consolidation or pleural effusion. ACT 112: Negative or not required by law. Electronically signed by: Finn Bradshaw M.D. 01/24/2021 10:20 AM
--- NOTE | 2021-01-24 11:58 | History & Physical Report ---
Date of Service January 24, 2021 Assessment & Plan (1) Tachycardia: Sinus tachycardia upon presentation today. No atrial dysrhythmia seen. EKG w/o ST changes. TSH checked - no hyperthyroidism. CTA chest w/o PEs. She appears markedly volume contracted today clinically and lab-wilcox (hyponatremia, hemoconcentration, etc). This is likely contributing to sinus tach. Additionally, she may be suffering from benzodiazepine withdrawal. Has been on BID-TID ativan for several years, and ran out of her prescription about 1 week ago. Treat the dehydration. Treat for possible benzo withdrawal. Telemetry. echo. (2) Chest pain: again it is very reassuring she has a negative troponin despite 2-3+ days of cardiopulmonary symptoms further, her cardiac cath about 1 year ago showed, at most, 30% lesions (see full results in PMH section) trend her troponins repeat her echo BPs are high - will place on nitropaste telemetry pain could be from her esophagitis no other acute findings on CTA chest (3) Palpitations: long-standing problem, but acutely worse over the last 3 days. since ER arrival she has had sinus tachycardia only. she reports no prior h/o a.fib or other atrial dysrhythmia. check echo. place on telemetry. may need extended heart monitoring with 30-day event monitor as outpatient. (4) Benzodiazepine withdrawal: suspected. place back on scheduled ativan 0.5mg IV TID. this may help her refractory nausea as well, help her anxiety, etc. (5) Hyponatremia: 2nd volume contraction as well as some pseudohyponatremia from hyperglycemia. hydrate, repeat BMP later tonight and then again in am. (6) Diabetes mellitus type 2, uncontrolled: 11.9% a1c in october. repeat a1c this admission. given NPO status and BSGs >[address] on insulin infusion with pharmacy glycemic consultation. hold SC insulins for now. fortunately no DKA or HONK. (7) Right second toe ulcer: received course of amoxicillin or augmentin following her [facility] at the [facility] stay a few weeks ago. certainly she continues w/ ulcer but it does not have purulent drainage. will consult wound care nurse. until they provide their recommendations will place aquacel silver on the ulceration and cover w/ optifoam. has good pulses in right foot but may have microvascular disease from DM making wound healing problematic. follows with wound care center in [place]. (8) History of cardiac cath: nonobstructive disease found on cath 09/2019 - [facility] it is reassuring that despite 3 straight days of chest pains, palpitations, etc her troponins are negative and she has no ST changes trend the troponins echo telemetry (9) Hyperlipidemia: cont lipitor cont asa (10) Esophagitis: dx with such at [facility] beds at the [facility] ~ [address] on IV PPI twice daily cont carafate qid I requested records from [facility] 234 beds at the [facility] to verify the EGD findings (11) Gastroparesis: when I cared for Ms Witt in October of this year I suspected this diagnosis. she had rapid response to reglan at that time. she was set up to see Dr Gonzalez from GI post-discharge but did not show for that appointment. she is not sure if she has ever had a gastric emptying study. will keep her NPO and obtain gastric emptying study in am given that her frequent vomiting post-prandially is one of her largest complaints. interestingly she told the ER attending she had never heard of this diagnosis despite my d/c instructions in October outlining my concerns for such as well as giving her a prescription for reglan at that time (12) Chronic back pain: receives prn narcotics from PCP for this saw Dr Veras in October of this year for various musculoskeletal complaints (13) History of tobacco use: (14) DVT prophylaxis: ?recent hematemesis at home; also had such during her [facility] beds at the [facility] admission? no records to substantiate this her H/H are actually hemoconcentrated today will repeat her CBC in am follow her clinically if no overt GI bleeding will start chemical DVT proph History of Present Illness Chief Complaint: heart racing Primary Care Provider: Vince Vernon DO 55yo female with DM for 6 years - insulin-dependent - presents with palpitations/heart racing. The palpitations have been present for nearly 3 days straight. Yesterday she had the palpitations all day and it felt like "her heart was going to jump out of her chest." Palpitations are worse with activity/movement. Son is an EMT and he checked her pulse at home - was 120s yesterday. She has associated chest pain - left breast, with radiation into her left neck and left shoulder. She has shortness of breath with the palpitations. This all makes her anxious. She uses ativan 1mg TID at home for anxiety - has been on this for many years. Ran out 1 week ago. DM - BSGs were 300s or higher all day yesterday. This is despite not having a good appetite yesterday. She came to the ER today because she was scared and she simply felt so poorly. In addition she has had nausea with vomiting for 3 days. "Can't keep anything down." She was hospitalized at [facility] beds at the [facility] 3 weeks ago. Had EGD and was told she had "esophagitis." Had hematemesis. She also underwent stress test at [facility] 234 beds at the [facility] and she was told it was normal. She does not follow with a regular GI doctor. There was talk of a referral to Dr Ward (GI) in [facility] but hasn't seen him in 2 years. Has a chronic right foot ulcer and was recently placed on amoxicillin during her stay in [place]. Allergies Allergy/AdvReac Type Severity Reaction Status Date / Time morphine Allergy Severe blisters Verified 01/24/21 08:53 in mouth Sulfa (Sulfonamide Allergy Severe rash/swelli Verified 01/24/21 08:53 Antibiotics) ng Home Medications Medication Instructions Recorded Confirmed Type Lillian BarajasPen U-100 Insulin 40 unit SUBCUT HS 10/19/20 01/24/21 History albuterol 90 mcg INHALATION QID PRN 10/19/20 01/24/21 History aspirin 81 mg PO DAILY 10/19/20 01/24/21 History cyclobenzaprine 10 mg PO BID 10/19/20 01/24/21 History diclofenac sodium [Voltaren] 1 g TOPICAL BID PRN 10/19/20 01/24/21 History lorazepam [Ativan] 1 mg PO TID 10/19/20 01/24/21 History nortriptyline 50 mg PO BID 10/19/20 01/24/21 History pantoprazole 40 mg PO BID 10/19/20 01/24/21 History ropinirole 4 mg PO HS 10/19/20 01/24/21 History sucralfate 1 g PO ACHS 10/19/20 01/24/21 History zolpidem [Ambien] 10 mg PO HS 10/19/20 01/24/21 History metoclopramide HCl 5 mg PO AC #60 tab 10/21/20 01/24/21 Rx lancets #100 ea 11/12/20 11/12/20 History amitriptyline 25 mg PO HS 01/24/21 01/24/21 History amoxicillin-pot clavulanate 1 tab PO BID 01/24/21 01/24/21 History atorvastatin 40 mg PO PM 01/24/21 01/24/21 History ergocalciferol (vitamin D2) 1,250 mcg PO WK 01/24/21 01/24/21 History lisinopril 10 mg PO DAILY 01/24/21 01/24/21 History ondansetron 4 mg PO TID PRN 01/24/21 01/24/21 History Past Med/Surg History Medical History (Updated 01/25/21 @ 02:48 by Silvestre Carvajal) Chest pain Chronic back pain Depression DM2 (diabetes mellitus, type 2) Gastritis GIB (gastrointestinal bleeding) Hyperlipidemia Insulin dependent diabetes mellitus Nonobstructive atherosclerosis of coronary artery Seizures Surgical History (Updated 01/24/21 @ 15:41 by Silvestre Carvajal) History of cardiac cath done at [facility]; 09/22/19; LM - mild luminal irregularities. LAD - mid 20-30%, distal with myocardial bridge & 30% stenosis. L Cx - mild luminal irregularities. RCA - proximal <30% stenosis; mid/distal vessel mild plaques. PDA - mild luminal irregularities. History of esophagogastroduodenoscopy (EGD) Family History (Updated 01/24/21 @ 12:10 by Silvestre Carvajal) Mother , age 63 Myocardial infarction Father , age 68 or 69 Myocardial infarction Brother S/P CABG (coronary artery bypass graft) Sister Myocardial infarction x 3; she is 57yo Social History (Updated 01/24/21 @ 12:18 by Silvestre Carvajal) Smoking Status: Never smoker packs per day: 1; Years Smoked: 20; Smoking End Date: 07/2020; Do You Dip or Chew Tobacco: No; Hx Alcohol Use: No Hx Substance Use: Yes Substance Use Type Other:: medical marijuana Preferred Language: Vietnamese Communication Ability: Effective Crystal Cutter Required: No Beliefs That Will Affect Care: None marital status: Current Living Situation: Spouse 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; 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 How many Children do You have: 3 Other Information That Helps Us Care for You: No other: raising a grandchild as well; lives in [place] Feels Safe at Home: Yes Safety Concerns: Feels Safe At This Time Assistive Devices: Glasses Review of Systems Constitutional: + chills (last pm ), + sweats, + anorexia and + weight loss (amount?); no fever and no body aches Eyes: + worsening vision (blurry - last few days) Ear, Nose, Mouth, Throat: no nasal congestion, no sore throat and no dysphagia no loss of taste or smell Respiratory: + dyspnea and + dyspnea on exertion; no cough and no wheezing Cardiovascular: as per Subjective / HPI, + chest pain, + radiating jaw, neck or arm pain, + palpitations and + edema (a few days ago - now resolved ) Gastrointestinal: + abdominal pain (upper ), + nausea, + vomiting and + coffee ground emesis (yesterday ); no hematemesis and no melena Genitourinary: no dysuria Musculoskeletal: + back pain (lumbar - chronic ) and + radicular pain (RLE) Integumentary: + non-healing lesions (RIGHT 2nd toe ) Neurologic: + numbness (hands/feet - chronic ) Psychiatric: + anxiety PTSD Endocrine: no polydipsia, no polyphagia and no polyuria Hematologic / Lymphatic: no easy bleeding and no easy bruising Physical Exam Constitutional: no acute distress and no altered mental status tearful, anxious Eyes: PERRL ENMT: Mouth: + dry oral mucous membranes (Severe ) Neck: trachea midline, no thyromegaly Respiratory: normal respiratory effort, lungs clear to auscultation Cardiovascular: Rate/Rhythm: regular rhythm and + tachycardic Heart Sounds: normal S1 and normal S2; no murmur Vessels: posterior tibial pulses present and dorsalis pedis pulses present; no JVD Extremities: no edema Gastrointestinal (Abdomen): normal bowel sounds, soft, nontender, no hepatosplenomegaly Musculoskeletal: Extremities: strength 5/5 throughout and + clubbing Skin: ulceration right 2nd toe - minimal drainage Neurologic: deep tendon reflexes 2+ bilaterally and moves all extremities Psychiatric: Orientation: alert and oriented x 3 Affect: + anxious affect and + tearful affect Lymphatic: no cervical lymphadenopathy Results & Data Results & Data ([facility]) Vital Signs (Past 12 Hours) Vital Signs Temp Pulse Pulse Resp BP BP Pulse Ox 01/24/21 11:09 106 H 20 207/134 H 94 01/24/21 10:30 105 H 18 199/85 H 96 01/24/21 09:57 100 H 18 203/100 H 95 01/24/21 08:38 113 H 20 141/84 H 98 01/24/21 08:31 216 H 18 141/84 H 99 01/24/21 08:14 94 01/24/21 08:07 36.9 C 120 H 18 143/70 H 99 01/24/21 08:03 189 H 20 143/70 H 97 Laboratory Results Microbiology 01/24/21 10:53 Blood Aerobic Blood Culture - Pending 01/24/21 10:53 Blood Anaerobic Blood Culture - Pending 01/24/21 10:53 Blood Aerobic Blood Culture - Pending 01/24/21 10:53 Blood Anaerobic Blood Culture - Pending Labs 01/24/21 01/24/21 01/24/21 08:33 08:33 08:33 WBC 18.26 H RBC 5.78 H Hgb 16.7 H Hct 47.2 H MCV 81.7 MCH 28.9 MCHC 35.4 RDW Std Deviation 38.1 RDW Coeff of [place] 12.9 Plt Count 429 H MPV 10.1 Immature Gran % (Auto) 0.3 Neut % (Auto) 84.0 Lymph % (Auto) 11.8 Barry % (Auto) 3.7 Eos % (Auto) 0.1 Baso % (Auto) 0.1 Neut # (Auto) 15.35 H Lymph # (Auto) 2.16 Barry # (Auto) 0.67 H Eos # (Auto) 0.01 Baso # (Auto) 0.02 Immature Gran # (Auto) 0.05 H APTT 22.5 PTT Ratio 0.9 Sodium 130 L Potassium 4.5 Chloride 94 L Carbon Dioxide 24 Anion Gap 11.0 BUN 13 Creatinine 0.85 Est Cr Clr Drug Dosing 68.7 Est GFR ( Amer) 88.8 Est GFR (Non-Af Amer) 76.6 BUN/Creatinine Ratio 15.2 Glucose 327 H* POC Glucose Lactate Calcium 10.0 Phosphorus Magnesium Total Bilirubin 1.0 AST 9 L ALT 25 Alkaline Phosphatase 112 Troponin I < 0.015 Total Protein 9.7 H Albumin 5.1 H Globulin 4.6 H Albumin/Globulin Ratio 1.1 Lipase 48 L Beta-Hydroxybutyric Acd 3.80 H TSH Urine Color Urine Appearance Urine pH Ur Specific [place] Urine Protein Urine Glucose (UA) Urine Ketones Urine Blood Urine Nitrite Urine Bilirubin Urine Urobilinogen Ur Leukocyte Esterase Urine WBC (Auto) Urine RBC (Auto) U Hyaline Cast (Auto) U Epithel Cells (Auto) Urine Bacteria (Auto) COVID-19 Eval Order SARS-CoV-2 (PCR) Blood Type Antibody Screen 01/24/21 01/24/21 01/24/21 08:33 08:36 10:53 WBC RBC Hgb Hct MCV MCH MCHC RDW Std Deviation RDW Coeff of [place] Plt Count MPV Immature Gran % (Auto) Neut % (Auto) Lymph % (Auto) Barry % (Auto) Eos % (Auto) Baso % (Auto) Neut # (Auto) Lymph # (Auto) Barry # (Auto) Eos # (Auto) Baso # (Auto) Immature Gran # (Auto) APTT PTT Ratio Sodium Potassium Chloride Carbon Dioxide Anion Gap BUN Creatinine Est Cr Clr Drug Dosing Est GFR ( Amer) Est GFR (Non-Af Amer) BUN/Creatinine Ratio Glucose POC Glucose Lactate 1.8 Calcium Phosphorus 3.4 Magnesium 2.1 Total Bilirubin AST ALT Alkaline Phosphatase Troponin I Total Protein Albumin Globulin Albumin/Globulin Ratio Lipase Beta-Hydroxybutyric Acd TSH 1.120 Urine Color Urine Appearance Urine pH Ur Specific [place] Urine Protein Urine Glucose (UA) Urine Ketones Urine Blood Urine Nitrite Urine Bilirubin Urine Urobilinogen Ur Leukocyte Esterase Urine WBC (Auto) Urine RBC (Auto) U Hyaline Cast (Auto) U Epithel Cells (Auto) Urine Bacteria (Auto) COVID-19 Eval Order SARS-CoV-2 (PCR) Blood Type AB Positive Antibody Screen NEGATIVE 01/24/21 01/24/21 01/24/21 11:10 11:10 15:01 WBC RBC Hgb Hct MCV MCH MCHC RDW Std Deviation RDW Coeff of [place] Plt Count MPV Immature Gran % (Auto) Neut % (Auto) Lymph % (Auto) Barry % (Auto) Eos % (Auto) Baso % (Auto) Neut # (Auto) Lymph # (Auto) Barry # (Auto) Eos # (Auto) Baso # (Auto) Immature Gran # (Auto) APTT PTT Ratio Sodium Potassium Chloride Carbon Dioxide Anion Gap BUN Creatinine Est Cr Clr Drug Dosing Est GFR ( Amer) Est GFR (Non-Af Amer) BUN/Creatinine Ratio Glucose POC Glucose Lactate Calcium Phosphorus Magnesium Total Bilirubin AST ALT Alkaline Phosphatase Troponin I < 0.015 Total Protein Albumin Globulin Albumin/Globulin Ratio Lipase Beta-Hydroxybutyric Acd TSH Urine Color Urine Appearance Urine pH Ur Specific [place] Urine Protein Urine Glucose (UA) Urine Ketones Urine Blood Urine Nitrite Urine Bilirubin Urine Urobilinogen Ur Leukocyte Esterase Urine WBC (Auto) Urine RBC (Auto) U Hyaline Cast (Auto) U Epithel Cells (Auto) Urine Bacteria (Auto) COVID-19 Eval Order Covid19 at [facility] SARS-CoV-2 (PCR) NEGATIVE Blood Type Antibody Screen 01/24/21 01/24/21 01/24/21 15:06 16:00 17:39 WBC RBC Hgb Hct MCV MCH MCHC RDW Std Deviation RDW Coeff of [place] Plt Count MPV Immature Gran % (Auto) Neut % (Auto) Lymph % (Auto) Barry % (Auto) Eos % (Auto) Baso % (Auto) Neut # (Auto) Lymph # (Auto) Barry # (Auto) Eos # (Auto) Baso # (Auto) Immature Gran # (Auto) APTT PTT Ratio Sodium Potassium Chloride Carbon Dioxide Anion Gap BUN Creatinine Est Cr Clr Drug Dosing Est GFR ( Amer) Est GFR (Non-Af Amer) BUN/Creatinine Ratio Glucose POC Glucose 249 H 220 H Lactate Calcium Phosphorus Magnesium Total Bilirubin AST ALT Alkaline Phosphatase Troponin I Total Protein Albumin Globulin Albumin/Globulin Ratio Lipase Beta-Hydroxybutyric Acd TSH Urine Color Yellow Urine Appearance Clear Urine pH 7.0 Ur Specific [place] > 1.045 H Urine Protein 1+ H Urine Glucose (UA) 3+ H Urine Ketones 1+ H Urine Blood Negative Urine Nitrite Negative Urine Bilirubin Negative Urine Urobilinogen Negative Ur Leukocyte Esterase Negative Urine WBC (Auto) 10-30 H Urine RBC (Auto) 0-4 U Hyaline Cast (Auto) 1-5 U Epithel Cells (Auto) >30 H Urine Bacteria (Auto) Negative COVID-19 Eval Order SARS-CoV-2 (PCR) Blood Type Antibody Screen 01/24/21 01/24/21 01/25/21 20:23 20:49 00:33 WBC RBC Hgb Hct MCV MCH MCHC RDW Std Deviation RDW Coeff of Maria [place] Plt Count MPV Immature Gran % (Auto) Neut % (Auto) Lymph % (Auto) Barry % (Auto) Eos % (Auto) Baso % (Auto) Neut # (Auto) Lymph # (Auto) Barry # (Auto) Eos # (Auto) Baso # (Auto) Immature Gran # (Auto) APTT PTT Ratio Sodium 135 L Potassium 3.6 D Chloride 102 Carbon Dioxide 26 Anion Gap 8.0 BUN 12 Creatinine 0.55 L D Est Cr Clr Drug Dosing 104.6 Est GFR ( Amer) 121.5 Est GFR (Non-Af Amer) 104.9 BUN/Creatinine Ratio 21.0 H Glucose 162 H POC Glucose 169 H 175 H Lactate Calcium 8.9 Phosphorus Magnesium Total Bilirubin AST ALT Alkaline Phosphatase Troponin I < 0.015 Total Protein Albumin Globulin Albumin/Globulin Ratio Lipase Beta-Hydroxybutyric Acd TSH Urine Color Urine Appearance Urine pH Ur Specific [place] Urine Protein Urine Glucose (UA) Urine Ketones Urine Blood Urine Nitrite Urine Bilirubin Urine Urobilinogen Ur Leukocyte Esterase Urine WBC (Auto) Urine RBC (Auto) U Hyaline Cast (Auto) U Epithel Cells (Auto) Urine Bacteria (Auto) COVID-19 Eval Order SARS-CoV-2 (PCR) Blood Type Antibody Screen Diagnostic Findings Chest X-Ray 01/24/21 08:09 XR chest 1V portable HISTORY: Atypical Chest Pain COMPARISON: Chest 10/19/2020. FINDINGS: The lungs are clear. Cardiac silhouette is normal in size. No pleural effusions. No pneumothorax. IMPRESSION: No acute process. ACT 112: Negative or not required by law. Electronically signed by: Ernst Murray M.D. 01/24/2021 8:59 AM Abdomen/Pelvis CT 01/24/21 09:23 CT OF THE ABDOMEN AND PELVIS WITH CONTRAST CLINICAL HISTORY: Nausea. Shortness of breath. COMPARISON STUDY: CT of the abdomen and pelvis October 20, 2020. TECHNIQUE: Following IV administration of 120 mL of Optiray, axial images of the abdomen and pelvis were obtained from the lung bases to the proximal femurs. Images were reviewed in the axial, sagittal, and coronal planes. IV contrast was administered without complication. Automated exposure control was utilized for the study. A dose lowering technique was utilized adhering to the principles of ALARA. FINDINGS: Please note that the chest CT will be reported separately. No pneumatosis, free air or portal venous gas is present. There is no biliary ductal dilatation status post cholecystectomy. The spleen, adrenal glands, kidneys and pancreas are unremarkable. There is hepatic steatosis. There are no hepatic lesions. No hydronephrosis is present. Caliber and wall thickness of small and large bowel are normal. There is no ascites or lymphadenopathy. There is moderate atherosclerotic plaque of the abdominal aorta which is normal in caliber. No ascites is present. No acute fracture or suspicious lesion is identified within the visualized skeletal structures. Postoperative findings at the lumbosacral junction are noted. The appendix is not visualized. IMPRESSION: 1. No acute process within the abdomen or pelvis. 2. No bowel obstruction. No bowel wall thickening. 3. Hepatic steatosis. ACT 112: Negative or not required by law. Electronically signed by: Wilver Powell M.D. 01/24/2021 10:19 AM Chest CTA 01/24/21 09:23 CT ANGIOGRAM OF THE CHEST CLINICAL HISTORY: Atypical chest pain. Nausea and vomiting. COMPARISON STUDY: Chest x-ray dated 01/24/2021. Chest CT dated 10/19/2020. TECHNIQUE: Following the IV administration of 120 cc of Optiray 350, CT angiogram of the chest was performed from the upper abdomen to the thoracic inlet utilizing the pulmonary embolus protocol. Images are reviewed in the axial, sagittal, and coronal planes. 3-D MIPS images are created and assessed. IV contrast was administered without complication. A dose lowering technique was utilized adhering to the principles of ALARA. CT DOSE: 950.09 mGy.cm FINDINGS: Thyroid: Imaged portions of the thyroid gland are normal in size and attenuati on. Thoracic aorta: There is mild atherosclerotic calcification of the thoracic aorta, which is normal in caliber and bovine variant arch anatomy. No dissection is seen. Pulmonary vasculature: The pulmonary trunk is normal in caliber. There are no filling defects identified in main, lobar, or segmental pulmonary branches to suggest pulmonary embolus. Heart: The heart is normal in size and without pericardial effusion. There are coronary artery calcifications. Lungs and pleural spaces: Evaluation of the lung parenchyma is degraded by motion artifact. Emphysematous change is noted. Minimal secretions are noted in the trachea. No airspace consolidation or pleural effusion is identified. Dependent atelectasis is seen at both lung bases. There are scattered calcified granulomas. Mediastinum: There is no mediastinal lymphadenopathy. [place]: Clear. Axillae: There is no axillary lymphadenopathy. Upper abdomen: Cholecystectomy clips are noted. There is a small hiatal hernia. Skeletal structures: No lytic or blastic bony lesions are seen. IMPRESSION: 1. There is no evidence of pulmonary embolus in the main, lobar, or segmental pulmonary arteries. 2. Emphysema. 3. There is no airspace consolidation or pleural effusion. ACT 112: Negative or not required by law. Electronically signed by: Finn Bradshaw M.D. 01/24/2021 10:20 AM EKG - my reading - sinus tach, no ST changes Code Status & VTE Plan Code Status full VTE Prophylaxis Plan VTE Prophylaxis will be ordered: Yes PG Care Time/CCT Total # of Minutes Spent Total Time Spent with Patient: Total time spent is greater than 50% in coordination of care (as documented) at patient's floor/unit and/or counseling patient: Coding Level of Care Code 54426 Initial Inpt Care Lvl 3 Diagnoses Tachycardia R00.0 Chest pain R07.9 Chest pain type: unspecified Palpitations R00.2 Benzodiazepine withdrawal F13.239 Hyponatremia E87.1 Diabetes mellitus type 2, uncontrolled E11.65 Right second toe ulcer L97.519 History of cardiac cath Z98.890 Hyperlipidemia E78.5 Esophagitis K20.90 Gastroparesis K31.84 Chronic back pain M54.9; G89.29 History of tobacco use Z87.891 DVT prophylaxis Z29.9 (1) Chest pain Chest pain type: unspecified Qualified Code(s): R07.9 - Chest pain, unspecified
--- NOTE | 2021-01-24 12:44 | Electrocardiogram Report ---
Test Reason : Blood Pressure : / mmHG Vent. Rate : 121 BPM Atrial Rate : 121 BPM P-R Int : 138 ms QRS Dur : 086 ms QT Int : 326 ms P-R-T Axes : 071 058 080 degrees QTc Int : 462 ms Sinus tachycardia Otherwise normal ECG When compared with ECG of 19-OCT-2020 13:30, No significant change was found Confirmed by Harvinder Guerra ([id number]) on 01/24/2021 12:43:38 PM Referred By: SELF Confirmed By:Scot Guerra
[2021-01-24] MEDS ORDERED: INSULIN PROTOCOL GOAL RANGE ONE (13:01)
[2021-01-24] MEDS ORDERED: MODERATE STRESS LEVEL ONE (13:01)
[2021-01-24] MEDS ORDERED: DC ALL PREVIOUSLY ORDERED DIABETES MEDS ONE (13:01)
[2021-01-24] MEDS ORDERED: LORazepam 0.5 MG/1 ML VIAL IV STA (13:05)
[2021-01-24 13:28] LABS: Magnesium 2.1 mg/dl (1.8-2.4); Phosphorus 3.4 mg/dl (2.5-4.9); Thyroid Stimulating Hormone 1.12 uIu/ml (0.300-4.500)
[2021-01-24] MEDS ORDERED: INSULIN REGULAR 250 UNITS in SODIUM CHLORIDE 0.9% 247.5 ML IV SCH (14:53)
[2021-01-24] MEDS ORDERED: DICLOFENAC SOD 1% GEL 100 GM TUBE EXT PRN (14:53)
[2021-01-24] MEDS ORDERED: PHARMACY GLYCEMIC MGMT CONSULT PRN (15:06)
[2021-01-24] MEDS ORDERED: ALBUTEROL HFA 8 GM INHALER INH PRN (15:13)
[2021-01-24] MEDS ORDERED: CARBOHYDRATES FOR HYPOGLYCEMIA PO PRN (15:15)
[2021-01-24] MEDS ORDERED: GLUCOSE 10 TABS/TUBE PO PRN (15:15)
[2021-01-24] MEDS ORDERED: GLUCAGON FOR INJ 1 MG VIAL IM PRN (15:15)
[2021-01-24] MEDS ORDERED: DEXTROSE 50% 50 ML SYRINGE IV PRN (15:15)
[2021-01-24] MEDS ORDERED: GLUCOSE 40% GEL 15 GM TUBE PO PRN (15:15)
[2021-01-24] MEDS ORDERED: INSULIN GLARGINE SOLOSTAR 100 UNITS/ML 3 ML PEN SC ONE (15:30)
[2021-01-24] MEDS: NSS + 20MEQ KCL 20 MEQ/1,000 ML BAG IV SCH ×2 (15:35→22:09)
[2021-01-24] MEDS: LORazepam 0.5 MG/1 ML VIAL IV SCH ×2 (15:36→20:28)
[2021-01-24] MEDS: PANTOprazole 40 MG in SYRINGE 0 ML IV SCH ×2 (15:36→20:30)
[2021-01-24] MEDS: HYDROmorphone INJ 0.5 MG/0.5 ML SYR IV PRN ×2 (15:37→22:08)
[2021-01-24] MEDS: ONDANSETRON INJ 2 MG/ML 2 ML VIAL IV PRN ×2 (15:55→22:08)
[2021-01-24 16:29] LABS: Appearance Urine Clear (Clear); Bacteria Urine Automated Negative (Negative); Bilirubin Urine Negative (Negative); Blood Urine Negative (Negative); Color Urine Yellow; Epithelial Cell Urine Auto >30 /lpf (0-5); Glucose Urine UA 3+ (Negative); Ketones Urine 1+ (Negative); Leukocyte Esterase Urine Negative (Negative); Nitrite Urine Negative (Negative); Protein Urine 1+ (Negative); RBC Urine Automated 0-4 /hpf (0-4); Specific Gravity Urine > 1.045 (1.000-1.030); Urobilinogen Urine Negative (Negative)
[2021-01-24] MEDS ORDERED: INSULIN ASPART 100 UNITS/ML 3 ML PEN SC SCH (16:30)
[2021-01-24] MEDS: SUCRALFATE 1 GM TAB PO SCH ×2 (16:39→20:26)
[2021-01-24] MEDS: INSULIN ASPART 100 UNITS/ML 3 ML PEN SC SCH ×2 (16:40→20:56)
--- NOTE | 2021-01-24 16:44 | XCELERA ---
[id number]
[2021-01-24] MEDS: NITROGLYCERIN 2% OINTMENT 30GM TUBE EXT SCH (18:01)
[2021-01-24] MEDS: CYCLOBENZAPRINE HCL 10 MG TAB PO SCH (20:26)
[2021-01-24] MEDS: rOPINIRole HCL 1 MG TABLET PO SCH (20:27)
[2021-01-24] MEDS: NORTRIPTYLINE HCL 25 MG CAP PO SCH (20:27)
[2021-01-24] MEDS: ATORVASTATIN 40 MG TAB PO SCH (20:28)
[2021-01-24] MEDS ORDERED: AMITRIPTYLINE HCL 25 MG TAB PO SCH (21:00)
[2021-01-24 21:44] LABS: Blood Urea Nitrogen 12 mg/dl (7-18); Calcium 8.9 mg/dl (8.5-10.1); Carbon Dioxide 26 mmol/L (21-32); Chloride 102 mmol/L (98-107); Creatinine Clr Calc Pharmacy 104.6 ml/min; Est GFR (African American) 121.5 ml/min; Est GFR (Non-African American) 104.9 ml/min; Glucose 162 mg/dl (70-99); Sodium 135 mmol/L (136-145)
[2021-01-24 21:45] LABS: Potassium 3.6 mmol/L (3.5-5.1)
[2021-01-24 21:47] LABS: Troponin I < 0.015 ng/ml (0-0.045)
[2021-01-24] MEDS: ZOLPIDEM TARTRATE 10 MG TAB PO SCH (22:07)
[2021-01-25] MEDS: NITROGLYCERIN 2% OINTMENT 30GM TUBE EXT SCH ×3 (02:08→12:38)
[2021-01-25] MEDS: INSULIN ASPART 100 UNITS/ML 3 ML PEN SC SCH ×7 (02:08→23:57)
[2021-01-25] MEDS: HYDROmorphone INJ 0.5 MG/0.5 ML SYR IV PRN ×3 (02:58→20:22)
[2021-01-25] MEDS: ONDANSETRON INJ 2 MG/ML 2 ML VIAL IV PRN ×2 (04:08→11:39)
[2021-01-25] MEDS: NSS + 20MEQ KCL 20 MEQ/1,000 ML BAG IV SCH ×4 (05:36→20:21)
[2021-01-25 05:53] LABS: Hematocrit (blood only) 39.6 % (37-47); Hemoglobin 13.7 g/dL (12.0-16.0); Mean Corpuscular Hemoglobin 28.4 pg (25-34); Mean Corpuscular Hgb Conc 34.6 g/dL (32-36); Mean Corpuscular Volume 82.2 fL (80-100); Mean Platelet Volume 9.7 fL (7.4-10.4); Platelet Count 357 K/uL (130-400); RDW Coefficient of Variation 12.8 % (11.5-14.5); RDW Standard Deviation 38.4 fL (36.4-46.3); Red Blood Count 4.82 M/uL (4.2-5.4); White Blood Count 17.65 K/uL (4.8-10.8)
[2021-01-25 06:24] LABS: BUN Creatinine Ratio 16.8 (10-20); Calcium 8.6 mg/dl (8.5-10.1); Creatinine Clr Calc Pharmacy 117.4 ml/min; Est GFR (African American) 126.2 ml/min; Est GFR (Non-African American) 108.9 ml/min; Potassium 3.9 mmol/L (3.5-5.1)
[2021-01-25 06:45] LABS: Estimated Average Glucose 252 mg/dl; Hemoglobin A1C 10.4 % (4.5-5.6)
[2021-01-25] MEDS ORDERED: PROCHLORPERAZINE 10 MG in SYRINGE 8 ML IV PRN (07:55)
[2021-01-25] MEDS: KETOROLAC TROMETHAMINE 15 MG/ML VIAL IV PRN ×3 (08:15→22:48)
[2021-01-25] MEDS: ASPIRIN 81 MG ECTAB PO SCH (08:16)
[2021-01-25] MEDS: NORTRIPTYLINE HCL 25 MG CAP PO SCH ×2 (08:16→20:21)
[2021-01-25] MEDS: lisinopril 10 MG TAB PO SCH (08:16)
[2021-01-25] MEDS: CYCLOBENZAPRINE HCL 10 MG TAB PO SCH ×2 (08:16→20:21)
[2021-01-25] MEDS: SUCRALFATE 1 GM TAB PO SCH ×4 (08:17→20:21)
[2021-01-25] MEDS: LORazepam 1 MG/2 ML VIAL IV SCH ×2 (08:17→14:32)
--- NOTE | 2021-01-25 08:42 | Pharmacy Report ---
Pharmacy Glycemic Short Note 2 - Date of Service January 25, 2021 - Glycemic Short BSG Results (Last 24 hours): 01/24/21 01/24/21 01/24/21 08:33 15:06 17:39 Glucose 327 H* POC Glucose 249 H 220 H 01/24/21 01/24/21 01/25/21 20:23 20:49 00:33 Glucose 162 H POC Glucose 169 H 175 H 01/25/21 01/25/21 01/25/21 04:56 05:19 07:35 Glucose 202 H POC Glucose 205 H 198 H OUTPATIENT ANTIDIABETIC REGIMEN: * Lantus 40 units SC HS * Novolog 10 units SC TIDM * HbA1c: 10.4% (01/25/21), 11.9% (10/20/20) ASSESSMENT: * SI is a 55 year old female with insulin-dependent type 2 DM * Admitted yesterday afternoon for evaluation of chest pain/heart palpitations * Patient reports nausea and vomiting with poor PO intake x 3 days * Currently NPO at this time * BSG of 249 mg/dL at time of consult - ordered Lantus at 75% of home dose given NPO status * Novolog was ordered q4h, but was non-administered by RN (unclear reason, as BSGs were all above goal range) * Fasting BSG of 198 mg/dL this morning - will plan to give BID basal moving forward PLAN FOR INPATIENT GLYCEMIC CONTROL: * Basal insulin * Lantus 20 units SC qAM * Lantus 0-10 units SC HS (see EHR for details) * Bolus insulin * NovoLog per scale ACHS or Q4hrs while NPO * Goal Range: Low 110 mg/dL - High 140 mg/dL * Correction Factor: 25 mg/dL/unit * Nutritional / Prandial insulin per carb ratio of 1 unit per 8 grams CHO consumed PLAN FOR DISCHARGE: * HbA1c of 10.4% is improved from October, but still significantly above goal of less than 7% * Will follow inpatient insulin needs and make recommendations as appropriate * Will be highly dependent on PO intake at discharge
[2021-01-25] MEDS ORDERED: INSULIN GLARGINE SOLOSTAR 100 UNITS/ML 3 ML PEN SC SCH (09:00)
[2021-01-25] MEDS: PANTOprazole 40 MG in SYRINGE 0 ML IV SCH (09:53)
--- NOTE | 2021-01-25 12:15 | Electrocardiogram Report ---
Test Reason : Blood Pressure : / mmHG Vent. Rate : 110 BPM Atrial Rate : 110 BPM P-R Int : 148 ms QRS Dur : 086 ms QT Int : 330 ms P-R-T Axes : 063 053 065 degrees QTc Int : 446 ms Sinus tachycardia Possible Left atrial enlargement Poor R wave progression, consider anterior [place] vs. lead placement vs. LVH Abnormal ECG When compared with ECG of 24-JAN-2021 08:00, No significant change was found Confirmed by Harvinder Guerra ([id number]) on 01/25/2021 12:14:54 PM Referred By: REFERRED SELF Confirmed By:Scot Guerra
--- NOTE | 2021-01-25 17:50 | Hospitalist Progress Note ---
Date of Service January 25, 2021 Assessment & Plan (1) Tachycardia: Sinus tachycardia upon presentation which is now significantly improved after treating benzodiazepine withdrawal with Ativan She was also volume contracted from nausea/vomiting and was given IV fluids No atrial dysrhythmia seen. EKG w/o ST changes. TSH checked - no hyperthyroidism. CTA chest w/o PEs. Echocardiogram with hyperdynamic EF, mild LVH, otherwise normal -Continue IV fluids -Initially increased Ativan to 1 mg IV 3 times daily today, however now she is tolerating p.o. and this is converted back to her usual home dose of 1 mg p.o. 3 times daily (2) Chest pain: Reports 1 year of left-sided chest and shoulder pain which is tender to palpation and is musculoskeletal in nature Serial troponin negative here x3 Echocardiogram without wall motion abnormalities and with preserved EF further, her cardiac cath about 1 year ago showed, at most, 30% lesions (see full results in PMH section) DC Nitropaste pain could be from her esophagitis-continue PPI and Carafate no other acute findings on CTA chest (3) Palpitations: long-standing problem, but acutely worse over the last 3 days secondary to benzodiazepine withdrawal Now improving with IV lorazepam Echocardiogram as above Continue telemetry monitoring-only sinus rhythm and sinus tachycardia so far (4) Benzodiazepine withdrawal: Patient ran out of her longstanding Ativan 1 mg p.o. 3 times daily as she is in between PCPs and could not get an appointment soon enough As above, now tolerating p.o. and convert IV Ativan to p.o. at home dose- recommended slow taper down off of this as an outpatient and replacement with a safer drug for anxiety this may help her refractory nausea as well, help her anxiety, etc. (5) Hyponatremia: 2nd volume contraction as well as some pseudohyponatremia from hyperglycemia. Improving with hydration Continue IV fluids Follow BMP in the morning (6) Diabetes mellitus type 2, uncontrolled: 11.9% a1c in october. repeat a1c this admission slightly improved but remains elevated at 10.4% fortunately no DKA or HONK. Blood sugars now improving today Pharmacy is managing with Lantus and NovoLog Needs improved control as an outpatient-she will follow-up with PCP (7) Right second toe ulcer: received course of amoxicillin or augmentin following her [facility] stay a few weeks ago. certainly she continues w/ ulcer but it does not have purulent drainage. will consult wound care nurse. until they provide their recommendations will place aquacel silver on the ulceration and cover w/ optifoam. has good pulses in right foot but may have microvascular disease from DM making wound healing problematic. follows with wound care center in [place]. (8) History of cardiac cath: nonobstructive disease found on cath 09/2019 - [facility] it is reassuring that despite 3 straight days of chest pains, palpitations, etc her troponins are negative and she has no ST changes Continue aspirin, atorvastatin, lisinopril (9) Hyperlipidemia: cont lipitor cont asa (10) Esophagitis: dx with such at [facility] ~ [address] on IV PPI twice daily and now will convert to p.o. as she is tolerating p.o. cont carafate qid I requested records from [facility] to verify the EGD findings (11) Gastroparesis: Suspected diagnosis during admission earlier this year she had rapid response to reglan at that time. she was set up to see Dr Gonzalez from GI post-discharge but did not show for that appointment. she is not sure if she has ever had a gastric emptying study. Follow-up as an outpatient for gastric emptying study if persists Advance diet to regular today (12) Chronic back pain: receives prn narcotics from PCP for this saw Dr Veras in October of this year for various musculoskeletal complaints She is requiring IV Dilaudid here as well as IV Toradol She will need to follow-up with PCP for this Continue nortriptyline 50 mg p.o. twice daily -She is also taking amitriptyline 20 5 at night which looks like a more recent new prescription-we will discontinue amitriptyline Continue diclofenac as needed, cyclobenzaprine (13) History of tobacco use: Needs counseling on cessation (14) Nausea & vomiting: Secondary to benzodiazepine withdrawal as above Now improved with replacement of lorazepam as well as antiemetics Zofran and Phenergan Advance diet (15) DVT prophylaxis: ?recent hematemesis at home; also had such during her [facility] admission? no records to substantiate this her H/H are actually hemoconcentrated upon admission Hemoglobin now still within normal range at 13.7 after IV fluid hydration Start Lovenox Disposition-continued stay but much improved, will likely be able to discharge home tomorrow Admission and Anticipated Discharge Date Admission Date: January 24, 2021 Subjective Patient was having a lot of nausea this morning and reports pain in the left shoulder ongoing for a year. When I saw her later in the day, she was much improved after receiving IV Ativan. Her nausea is completely resolved and she was feeling very hungry. Denies any shortness of breath, no abdominal pain. Review of Systems Review of Systems: All systems reviewed & are unremarkable except as noted in HPI & below left shoulder pain x 1 year Physical Exam Constitutional: WD/WN, vitals as above Eyes: + anicteric sclerae Neck: trachea midline, no thyromegaly Respiratory: normal respiratory effort, lungs clear to auscultation Cardiovascular: RRR, no murmur, no edema Chest (Breasts): Chest: normal inspection of chest Gastrointestinal (Abdomen): normal bowel sounds, soft, nontender, no hepatosplenomegaly Musculoskeletal: Extremities: extremities normal to inspection; no cyanosis and no clubbing Left shoulder with tenderness to palpation posteriorly, no effusion or hematoma, no erythema Skin: no rashes, warm and dry Neurologic: moves all extremities and awake; no focal motor deficits Psychiatric: A+Ox3, euthymic affect Lymphatic: no lymphedema Results & Data Results & Data ([facility]) Vital Signs (Past 12 Hours) Vital Signs Temp Pulse Resp BP Pulse Ox 01/25/21 14:48 36.9 C 80 19 124/76 94 01/25/21 10:48 36.8 C 94 H 19 116/68 98 01/25/21 07:44 36.8 C 113 H 19 143/96 H 97 Laboratory Results 01/25/21 01/25/21 01/25/21 Range/Units 20:37 16:05 11:15 WBC (4.8-10.8) K/uL RBC (4.2-5.4) M/uL Hgb (12.0-16.0) g/dL Hct (37-47) % MCV (80-100) fL MCH (25-34) pg MCHC (32-36) g/dL RDW Std Deviation (36.4-46.3) fL RDW Coeff of Maria Del Carmen (11.5-14.5) % Plt Count (130-400) K/uL MPV (7.4-10.4) fL Sodium (136-145) mmol/L Potassium (3.5-5.1) mmol/L Chloride (98-107) mmol/L Carbon Dioxide (21-32) mmol/L Anion Gap (3-11) BUN (7-18) mg/dl Creatinine (0.6-1.2) mg/dl Est Cr Clr Drug Dosing ml/min Est GFR ( Amer) ml/min Est GFR (Non-Af Amer) ml/min BUN/Creatinine Ratio (10-20) Glucose (70-99) mg/dl POC Glucose 129 H 104 H 135 H (70-99) mg/dl Estimat Average Glucose mg/dl Hemoglobin A1c (4.5-5.6) % Calcium (8.5-10.1) mg/dl Troponin I (0-0.045) ng/ml 01/25/21 01/25/21 01/25/21 Range/Units 07:35 05:19 05:19 WBC (4.8-10.8) K/uL RBC (4.2-5.4) M/uL Hgb (12.0-16.0) g/dL Hct (37-47) % MCV (80-100) fL MCH (25-34) pg MCHC (32-36) g/dL RDW Std Deviation (36.4-46.3) fL RDW Coeff of Maria Del Carmen (11.5-14.5) % Plt Count (130-400) K/uL MPV (7.4-10.4) fL Sodium 131 L (136-145) mmol/L Potassium 3.9 (3.5-5.1) mmol/L Chloride 99 (98-107) mmol/L Carbon Dioxide 26 (21-32) mmol/L Anion Gap 6.0 (3-11) BUN 8 (7-18) mg/dl Creatinine 0.49 L (0.6-1.2) mg/dl Est Cr Clr Drug Dosing 117.4 ml/min Est GFR ( Amer) 126.2 ml/min Est GFR (Non-Af Amer) 108.9 ml/min BUN/Creatinine Ratio 16.8 (10-20) Glucose 202 H (70-99) mg/dl POC Glucose 198 H (70-99) mg/dl Estimat Average Glucose 252 mg/dl Hemoglobin A1c 10.4 H (4.5-5.6) % Calcium 8.6 (8.5-10.1) mg/dl Troponin I (0-0.045) ng/ml 01/25/21 01/25/21 01/25/21 Range/Units 05:19 04:56 00:33 WBC 17.65 H (4.8-10.8) K/uL RBC 4.82 (4.2-5.4) M/uL Hgb 13.7 D (12.0-16.0) g/dL Hct 39.6 (37-47) % MCV 82.2 (80-100) fL MCH 28.4 (25-34) pg MCHC 34.6 (32-36) g/dL RDW Std Deviation 38.4 (36.4-46.3) fL RDW Coeff of Maria Del Carmen 12.8 (11.5-14.5) % Plt Count 357 (130-400) K/uL MPV 9.7 (7.4-10.4) fL Sodium (136-145) mmol/L Potassium (3.5-5.1) mmol/L Chloride (98-107) mmol/L Carbon Dioxide (21-32) mmol/L Anion Gap (3-11) BUN (7-18) mg/dl Creatinine (0.6-1.2) mg/dl Est Cr Clr Drug Dosing ml/min Est GFR ( Amer) ml/min Est GFR (Non-Af Amer) ml/min BUN/Creatinine Ratio (10-20) Glucose (70-99) mg/dl POC Glucose 205 H 175 H (70-99) mg/dl Estimat Average Glucose mg/dl Hemoglobin A1c (4.5-5.6) % Calcium (8.5-10.1) mg/dl Troponin I (0-0.045) ng/ml 01/24/21 Range/Units 20:49 WBC (4.8-10.8) K/uL RBC (4.2-5.4) M/uL Hgb (12.0-16.0) g/dL Hct (37-47) % MCV (80-100) fL MCH (25-34) pg MCHC (32-36) g/dL RDW Std Deviation (36.4-46.3) fL RDW Coeff of Maria Del Carmen (11.5-14.5) % Plt Count (130-400) K/uL MPV (7.4-10.4) fL Sodium 135 L (136-145) mmol/L Potassium 3.6 D (3.5-5.1) mmol/L Chloride 102 (98-107) mmol/L Carbon Dioxide 26 (21-32) mmol/L Anion Gap 8.0 (3-11) BUN 12 (7-18) mg/dl Creatinine 0.55 L D (0.6-1.2) mg/dl Est Cr Clr Drug Dosing 104.6 ml/min Est GFR ( Amer) 121.5 ml/min Est GFR (Non-Af Amer) 104.9 ml/min BUN/Creatinine Ratio 21.0 H (10-20) Glucose 162 H (70-99) mg/dl POC Glucose (70-99) mg/dl Estimat Average Glucose mg/dl Hemoglobin A1c (4.5-5.6) % Calcium 8.9 (8.5-10.1) mg/dl Troponin I < 0.015 (0-0.045) ng/ml PG Care Time/CCT Total # of Minutes Spent Total Time Spent with Patient: Total time spent is greater than 50% in coordination of care (as documented) at patient's floor/unit and/or counseling patient: Coding Level of Care Code 01540 Subseq Hosp Care Lvl 3 Diagnoses Tachycardia R00.0 Chest pain R07.2 Chest pain type: precordial pain Palpitations R00.2 Benzodiazepine withdrawal F13.239 Hyponatremia E87.1 Diabetes mellitus type 2, uncontrolled E11.65 Right second toe ulcer L97.519 History of cardiac cath Z98.890 Hyperlipidemia E78.5 Esophagitis K20.90 Gastroparesis K31.84 Chronic back pain M54.9; G89.29 History of tobacco use Z87.891 Nausea & vomiting R11.2 DVT prophylaxis Z29.9 (1) Chest pain Chest pain type: precordial pain Qualified Code(s): R07.2 - Precordial pain
[2021-01-25] MEDS: PANTOprazole 40 MG TAB PO SCH (20:21)
[2021-01-25] MEDS: LORazepam 1 MG TAB PO SCH (20:21)
[2021-01-25] MEDS: ZOLPIDEM TARTRATE 10 MG TAB PO SCH (20:21)
[2021-01-25] MEDS: ATORVASTATIN 40 MG TAB PO SCH (20:21)
[2021-01-25] MEDS: rOPINIRole HCL 1 MG TABLET PO SCH (20:21)
[2021-01-25] MEDS: ENOXAPARIN INJ 40 MG/0.4 ML SYR SQ SCH (22:48)
[2021-01-26] MEDS: HYDROmorphone INJ 0.5 MG/0.5 ML SYR IV PRN ×2 (02:05→06:14)
[2021-01-26] MEDS: ONDANSETRON INJ 2 MG/ML 2 ML VIAL IV PRN ×2 (02:08→09:53)
[2021-01-26] MEDS: NSS + 20MEQ KCL 20 MEQ/1,000 ML BAG IV SCH (02:46)
[2021-01-26 07:38] LABS: Basophils # (auto) 0.03 K/uL (0-0.2); Basophils % (auto) 0.2 %; Eosinophils # (auto) 0.39 K/uL (0-0.5); Eosinophils % (auto) 3.2 %; Hematocrit (blood only) 37.4 % (37-47); Hemoglobin 12.9 g/dL (12.0-16.0); Immature Granulocytes # (auto) 0.03 K/uL (0.00-0.02); Immature Granulocytes % (auto) 0.2 %; Lymphocytes # (auto) 3.17 K/uL (1.2-3.4); Lymphocytes % (auto) 26.1 %; Mean Corpuscular Hemoglobin 28.5 pg (25-34); Mean Corpuscular Hgb Conc 34.5 g/dL (32-36); Mean Corpuscular Volume 82.6 fL (80-100); Mean Platelet Volume 9.7 fL (7.4-10.4); Monocytes % (auto) 6.6 %; Neutrophils # (auto) 7.71 K/uL (1.4-6.5); Neutrophils % (auto) 63.7 %; Platelet Count 312 K/uL (130-400); RDW Standard Deviation 39.4 fL (36.4-46.3); Red Blood Count 4.53 M/uL (4.2-5.4); White Blood Count 12.13 K/uL (4.8-10.8)
[2021-01-26 08:11] LABS: BUN Creatinine Ratio 22.6 (10-20); Calcium 8.4 mg/dl (8.5-10.1); Creatinine Clr Calc Pharmacy 125.8 ml/min; Est GFR (African American) 128.9 ml/min; Est GFR (Non-African American) 111.2 ml/min; Potassium 4.1 mmol/L (3.5-5.1)
[2021-01-26] MEDS: INSULIN ASPART 100 UNITS/ML 3 ML PEN SC SCH ×4 (08:21→21:14)
[2021-01-26] MEDS: INSULIN GLARGINE SOLOSTAR 100 UNITS/ML 3 ML PEN SC SCH (08:22)
[2021-01-26] MEDS: PANTOprazole 40 MG TAB PO SCH ×2 (08:23→21:51)
[2021-01-26] MEDS: CYCLOBENZAPRINE HCL 10 MG TAB PO SCH ×2 (08:23→21:51)
[2021-01-26] MEDS: NORTRIPTYLINE HCL 25 MG CAP PO SCH ×2 (08:23→21:51)
[2021-01-26] MEDS: SUCRALFATE 1 GM TAB PO SCH ×4 (08:23→21:51)
[2021-01-26] MEDS: lisinopril 10 MG TAB PO SCH (08:24)
[2021-01-26] MEDS: ASPIRIN 81 MG ECTAB PO SCH (08:24)
[2021-01-26] MEDS: LORazepam 1 MG TAB PO SCH ×3 (08:27→21:45)
--- NOTE | 2021-01-26 08:33 | Pharmacy Report ---
Pharmacy Glycemic Short Note 2 - Date of Service January 26, 2021 - Glycemic Short BSG Results (Last 24 hours): 01/25/21 01/25/21 01/25/21 11:15 16:05 20:37 Glucose POC Glucose 135 H 104 H 129 H 01/25/21 01/26/21 01/26/21 23:55 07:06 07:08 Glucose 126 H POC Glucose 108 H 129 H OUTPATIENT ANTIDIABETIC REGIMEN: * Lantus 40 units SC HS * Novolog 10 units SC TIDM * HbA1c: 10.4% (01/25/21), 11.9% (10/20/20) ASSESSMENT: 01/26 * BSGs improved yesterday, 198, 135, 104, and 129 mg/dL * Received 26 units of insulin (20 units of basal and 6 units of prandial/correctional) * Diet advanced to regular yesterday - eating well based on carb counts * Will likely need to increase basal insulin today 01/25 * SI is a 55 year old female with insulin-dependent type 2 DM * Admitted yesterday afternoon for evaluation of chest pain/heart palpitations * Patient reports nausea and vomiting with poor PO intake x 3 days * Currently NPO at this time * BSG of 249 mg/dL at time of consult - ordered Lantus at 75% of home dose given NPO status * Novolog was ordered q4h, but was non-administered by RN (unclear reason, as BSGs were all above goal range) * Fasting BSG of 198 mg/dL this morning - will plan to give BID basal moving forward PLAN FOR INPATIENT GLYCEMIC CONTROL: * Basal insulin * Lantus 20 units SC this morning * Lantus 0-20 units SC HS (see EHR for details) * Bolus insulin - continue * NovoLog per scale ACHS or Q4hrs while NPO * Goal Range: Low 110 mg/dL - High 140 mg/dL * Correction Factor: 25 mg/dL/unit * Nutritional / Prandial insulin per carb ratio of 1 unit per 8 grams CHO consumed PLAN FOR DISCHARGE: * HbA1c of 10.4% is improved from October, but still significantly above goal of less than 7% * Will follow inpatient insulin needs and make recommendations as appropriate * Will be highly dependent on PO intake at discharge
[2021-01-26] MEDS ORDERED: INSULIN GLARGINE SOLOSTAR 100 UNITS/ML 3 ML PEN SC SCH ×2 (09:00→21:00)
[2021-01-26] MEDS: KETOROLAC TROMETHAMINE 15 MG/ML VIAL IV PRN ×2 (09:53→14:18)
[2021-01-26] MEDS ORDERED: DICLOFENAC SOD 1% GEL 100 GM TUBE EXT SCH (10:00)
[2021-01-26] MEDS ORDERED: HYDROCODONE/ACETAMOPHEN 5/325MG TAB PO ONE (10:33)
--- NOTE | 2021-01-26 14:33 | Orthopedic Consultation ---
Date of Consultation January 26, 2021 Assessment & Plan (1) Left shoulder pain: I spoke to Dr. Patterson in regards to this patient. He agrees with the below plan. We will order a sed rate as well as C-reactive protein. We will ask for medical records from [facility] regarding her most recent hospital stay for her left shoulder including blood work and MRI and well as treatment. We will hold off on a new MRI for now. Patient declining left shoulder aspiration. Blood cell count is 12.6. Vital signs are stable. She is afebrile. She denies fevers chills or sweats. When entering the room her shoulder was resting comfortably behind her head. She may have some underlying shoulder pathology that can be treated but need to first rule out infection prior to considering a cortisone injection. Patient is aware it is up to Dr. Ko and the medical service to decide whether or not a narcotic is appropriate. Will continue to follow. I, Dr. Patterson, saw and examined the patient and discussed the management with my PA. I reviewed my PAs note and agree with the documented findings and the plan of care I developed. Awaiting medical records from [place], clinically unlikely shoulder infection. I recommend any cortisone injection until this is further clarified. May uti lize the LUE as tolerated. Her symptoms appear to be more related to her cervical spine. Spoke with Dr. Ko, and will obtain cervical spine radiographs. In the meantime will utilize a soft cervical collar. Continue care per primary service. Present on Admission?: Yes History of Present Illness Reason for Consultation: Left shoulder pain Requesting Physician: Dr. Patterson Attending Physician: Sangeeta Ko MD History of Present Illness 55-year-old female with complaints of left shoulder pain. Patient was admitted to the hospital for other medical issues including chest pain as well as withdrawal from Ativan. When asked about her left shoulder patient states she has had left shoulder pain since a fall last February. She states she was seen by somebody and evaluated for this and was told her shoulder was fine. However she states she has had continued left shoulder pain and tingling in the left fingertips since the fall. Approximately 1 month ago per patient report she states she went to the emergency room in [facility] for left shoulder pain. She states she was admitted for a few days because of her shoulder she had an MRI performed with sedation and was told she had a left shoulder infection. Patient refused to have her left shoulder aspirated. She says she was treated with antibiotics while in the hospital and sent home. She has not followed up with any orthopedic provider since. She currently denies fevers chills or sweats. She states at times she has numbness and tingling into her fingers. She states currently she is not getting any narcotics and is asking for something to take away her pain. I asked if she would consider having her shoulder aspirated and she declined. I did speak to the nurse and she has been given Toradol and a one-time dose of hydrocodone. Patient was quite agitated today and says if she does not get anything for pain that she is ready to leave the hospital. Allergies Allergy/AdvReac Type Severity Reaction Status Date / Time morphine Allergy Severe blisters Verified 01/24/21 08:53 in mouth Sulfa (Sulfonamide Allergy Severe rash/swelli Verified 01/24/21 08:53 Antibiotics) ng Home Medications Medication Instructions Recorded Confirmed Type Lillian Willard U-100 Insulin 40 unit SUBCUT HS 10/19/20 01/24/21 History albuterol 90 mcg INHALATION QID PRN 10/19/20 01/24/21 History aspirin 81 mg PO DAILY 10/19/20 01/24/21 History cyclobenzaprine 10 mg PO BID 10/19/20 01/24/21 History diclofenac sodium [Voltaren] 1 g TOPICAL BID PRN 10/19/20 01/24/21 History lorazepam [Ativan] 1 mg PO TID 10/19/20 01/24/21 History nortriptyline 50 mg PO BID 10/19/20 01/24/21 History pantoprazole 40 mg PO BID 10/19/20 01/24/21 History ropinirole 4 mg PO HS 10/19/20 01/24/21 History sucralfate 1 g PO ACHS 10/19/20 01/24/21 History zolpidem [Ambien] 10 mg PO HS 10/19/20 01/24/21 History metoclopramide HCl 5 mg PO AC #60 tab 10/21/20 01/24/21 Rx lancets #100 ea 11/12/20 11/12/20 History amitriptyline 25 mg PO HS 01/24/21 01/24/21 History amoxicillin-pot clavulanate 1 tab PO BID 01/24/21 01/24/21 History atorvastatin 40 mg PO PM 01/24/21 01/24/21 History ergocalciferol (vitamin D2) 1,250 mcg PO WK 01/24/21 01/24/21 History lisinopril 10 mg PO DAILY 01/24/21 01/24/21 History ondansetron 4 mg PO TID PRN 01/24/21 01/24/21 History Patient History Medical History Chest pain Chronic back pain Depression DM2 (diabetes mellitus, type 2) Gastritis GIB (gastrointestinal bleeding) Hyperlipidemia Insulin dependent diabetes mellitus Nonobstructive atherosclerosis of coronary artery Seizures Surgical History History of cardiac cath done at [facility]; 09/22/19; LM - mild luminal irregularities. LAD - mid 20-30%, distal with myocardial bridge & 30% stenosis. L Cx - mild l uminal irregularities. RCA - proximal <30% stenosis; mid/distal vessel mild plaques. PDA - mild luminal irregularities. History of esophagogastroduodenoscopy (EGD) Family History Mother , age 63 Myocardial infarction Father , age 68 or 69 Myocardial infarction Brother S/P CABG (coronary artery bypass graft) Sister Myocardial infarction x 3; she is 57yo Social History Smoking Status: Never smoker packs per day: 1; Years Smoked: 20; Smoking End Date: 07/2020; Do You Dip or Chew Tobacco: No; Hx Alcohol Use: No Hx Substance Use: Yes Substance Use Type Other:: medical marijuana Preferred Language: French Communication Ability: Effective Nursing Clinical Director Required: No Beliefs That Will Affect Care: None marital status: Current Living Situation: Spouse 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 She denies recent injury to her left shoulder. Physical Exam Physical Exam: When entering room, patient in bed with both arms raised over her head. Patient Alert and Oriented x 3. He was agitated throughout the exam. Left shoulder examination revealed active assistive range of motion to approximately 160 degrees, abduction to approximately 90 degrees. Breakaway strength to rotator cuff 5-/5. Skin intact with no redness no warmth no bruising no deformities noted. Diffusely tender to all areas of left shoulder. No crepitus noted on exam. Patient has full left elbow wrist and hand motion. N eurovascularly intact. Palpable radial pulse. Brisk capillary refill. Sensation intact to light touch. Motor to AIN PIN medial radial ulnar nerve and. Provocative testing of left shoulder difficult to assess secondary to patient having pain throughout entire exam with agitation. Ramirez sign positive, apprehension sign negative, equivocal [facility] palm up, palm down, pain with empty can testing, pain with crossarm test. Dr. Patterson's exam Focusing on the patient's left upper extremity: 2+ radial pulse Sensation to light touch is diminished in the fingertips. Motor to their median, radial, ulnar, AIN, PIN, muscular cutaneous nerves is intact. Full range of motion of their elbow, forearm, and wrist. Range of motion of the shoulder: Forward elevation 140, active assisted 160; Abduction 150, active assisted 160; external rotation 40; internal rotation iliac crest. Provocative testing of the shoulder exhibits: + Neer + Ramirez - Crossarm testing, causes pain posterior shoulder [facility]'s: + palm up & + palm down + tenderness to palpation LHB, posterior shoulder, laterally. - Shoulder swelling or erythema C-Spine. + TTP C7, no step offs. Pain with full extension and rotation to right. + Spurlings with extension and rotation to right. Results & Data ([facility]) Vital Signs (Past 12 Hours) Vital Signs Temp Pulse Pulse Resp BP BP Pulse Ox 01/26/21 11:27 37.0 C 97 H 18 117/77 95 01/26/21 07:30 36.7 C 97 H 17 144/75 H 98 01/26/21 03:26 36.8 C 92 H 22 116/74 98 Laboratory Results 01/26/21 01/26/21 01/26/21 Range/Units 11:13 07:08 07:06 WBC (4.8-10.8) K/uL RBC (4.2-5.4) M/uL Hgb (12.0-16.0) g/dL Hct (37-47) % MCV (80-100) fL MCH (25-34) pg MCHC (32-36) g/dL RDW Std Deviation (36.4-46.3) fL RDW Coeff of Maria [place] Carmen (11.5-14.5) % Plt Count (130-400) K/uL MPV (7.4-10.4) fL Immature Gran % (Auto) % Neut % (Auto) % Lymph % (Auto) % [place] % (Auto) % Eos % (Auto) % Baso % (Auto) % Neut # (Auto) (1.4-6.5) K/uL Lymph # (Auto) (1.2-3.4) K/uL [place] # (Auto) (0.11-0.59) K/uL Eos # (Auto) (0-0.5) K/uL Baso # (Auto) (0-0.2) K/uL Immature Gran # (Auto) (0.00-0.02) K/uL ESR Sodium (136-145) mmol/L Potassium (3.5-5.1) mmol/L Chloride (98-107) mmol/L Carbon Dioxide (21-32) mmol/L Anion Gap (3-11) BUN (7-18) mg/dl Creatinine (0.6-1.2) mg/dl Est Cr Clr Drug Dosing ml/min Est GFR ( Amer) ml/min Est GFR (Non-Af Amer) ml/min BUN/Creatinine Ratio (10-20) Glucose (70-99) mg/dl POC Glucose 115 H 129 H (70-99) mg/dl Calcium (8.5-10.1) mg/dl Magnesium (1.8-2.4) mg/dl C-Reactive Protein Pending 01/26/21 01/26/21 01/26/21 Range/Units 07:06 07:06 07:06 WBC 12.13 H (4.8-10.8) K/uL RBC 4.53 (4.2-5.4) M/uL Hgb 12.9 (12.0-16.0) g/dL Hct 37.4 (37-47) % MCV 82.6 (80-100) fL MCH 28.5 (25-34) pg MCHC 34.5 (32-36) g/dL RDW Std Deviation 39.4 (36.4-46.3) fL RDW Coeff of Maria [place] Carmen 13.0 (11.5-14.5) % Plt Count 312 (130-400) K/uL MPV 9.7 (7.4-10.4) fL Immature Gran % (Auto) 0.2 % Neut % (Auto) 63.7 % Lymph % (Auto) 26.1 % [place] % (Auto) 6.6 % Eos % (Auto) 3.2 % Baso % (Auto) 0.2 % Neut # (Auto) 7.71 H (1.4-6.5) K/uL Lymph # (Auto) 3.17 (1.2-3.4) K/uL [place] # (Auto) 0.80 H (0.11-0.59) K/uL Eos # (Auto) 0.39 (0-0.5) K/uL Baso # (Auto) 0.03 (0-0.2) K/uL Immature Gran # (Auto) 0.03 H (0.00-0.02) K/uL ESR Pending Sodium 137 (136-145) mmol/L Potassium 4.1 (3.5-5.1) mmol/L Chloride 107 (98-107) mmol/L Carbon Dioxide 25 (21-32) mmol/L Anion Gap 5.0 (3-11) BUN 11 (7-18) mg/dl Creatinine 0.46 L (0.6-1.2) mg/dl Est Cr Clr Drug Dosing 125.8 ml/min Est GFR ( Amer) 128.9 ml/min Est GFR (Non-Af Amer) 111.2 ml/min BUN/Creatinine Ratio 22.6 H (10-20) Glucose 126 H (70-99) mg/dl POC Glucose (70-99) mg/dl Calcium 8.4 L (8.5-10.1) mg/dl Magnesium 2.0 (1.8-2.4) mg/dl C-Reactive Protein 01/25/21 01/25/21 01/25/21 Range/Units 23:55 20:37 16:05 WBC (4.8-10.8) K/uL RBC (4.2-5.4) M/uL Hgb (12.0-16.0) g/dL Hct (37-47) % MCV (80-100) fL MCH (25-34) pg MCHC (32-36) g/dL RDW Std Deviation (36.4-46.3) fL RDW Coeff of Maria Del Carmen (11.5-14.5) % Plt Count (130-400) K/uL MPV (7.4-10.4) fL Immature Gran % (Auto) % Neut % (Auto) % Lymph % (Auto) % [place] % (Auto) % Eos % (Auto) % Baso % (Auto) % Neut # (Auto) (1.4-6.5) K/uL Lymph # (Auto) (1.2-3.4) K/uL [place] # (Auto) (0.11-0.59) K/uL Eos # (Auto) (0-0.5) K/uL Baso # (Auto) (0-0.2) K/uL Immature Gran # (Auto) (0.00-0.02) K/uL ESR Sodium (136-145) mmol/L Potassium (3.5-5.1) mmol/L Chloride (98-107) mmol/L Carbon Dioxide (21-32) mmol/L Anion Gap (3-11) BUN (7-18) mg/dl Creatinine (0.6-1.2) mg/dl Est Cr Clr Drug Dosing ml/min Est GFR ( Amer) ml/min Est GFR (Non-Af Amer) ml/min BUN/Creatinine Ratio (10-20) Glucose (70-99) mg/dl POC Glucose 108 H 129 H 104 H (70-99) mg/dl Calcium (8.5-10.1) mg/dl Magnesium (1.8-2.4) mg/dl C-Reactive Protein Diagnostic Findings I, Dr. Patterson, reviewed the radiographs of the left shoulder, which show no evidence of acute fracture dislocation. Unremarkable study.
--- NOTE | 2021-01-26 15:10 | XRay Report ---
XR shoulder LT min 2V routine CLINICAL HISTORY: left shoulder pain COMPARISON: None. DISCUSSION: The bones and joint spaces appear intact. There is no evidence of fracture, dislocation o r bony disease. There is no evidence for soft tissue swelling. IMPRESSION: Negative study. ACT 112: Negative or not required by law. The above report was generated using voice recognition software. It may contain grammatical, syntax o r spelling errors. Electronically signed by: Ora Lopez DO 01/26/2021 3:08 PM
[2021-01-26] MEDS ORDERED: oxyCODONE HCL IR 5 MG TAB (IMMEDIATE RELEASE) PO PRN (15:48)
[2021-01-26] MEDS: METOCLOPRAMIDE HCL 5 MG TABLET PO SCH ×2 (16:21→18:11)
[2021-01-26] MEDS: ACETAMINOPHEN 325 MG TAB PO PRN (16:23)
--- NOTE | 2021-01-26 19:48 | Hospitalist Progress Note ---
Date of Service January 26, 2021 Assessment & Plan (1) Tachycardia: Sinus tachycardia upon presentation which is now significantly improved after treating benzodiazepine withdrawal with Ativan She was also volume contracted from nausea/vomiting and was given IV fluids No atrial dysrhythmia seen. EKG w/o ST changes. TSH checked - no hyperthyroidism. CTA chest w/o PEs. Echocardiogram with hyperdynamic EF, mild LVH, otherwise normal -Continue home lorazepam 1 mg p.o. 3 times daily -Transferred off telemetry (2) Left shoulder pain: With 9 to 10-month history of severe left shoulder/chest/axilla/neck pain radiating at times on the left arm with tingling in the left hand Occurred 2 months after a fall downstairs last February. Apparently she has had extensive work-up of this already of the shoulder at [facility] with MRI and orthopedics evaluation. She does not recall the final outcome, but thinks that she was told she had an infection in her shoulder. There is no evidence of infection here. ESR and CRP are essentially normal. There is no effusion, erythema, or other clinical signs of infection in the joint. Shoulder xray negative Appreciate orthopedic surgery consultation-need to request records from [place], would not want to inject steroids if has potential infection although this seems not likely -Check cervical spine x-rays -Physical therapy ordered -Increased pain medication to oxycodone 5-10 mg p.o. every 4 hours as needed, discontinued IV Dilaudid as she needs a solution she can take on with her -Patient declines gabapentin for vomiting, Voltaren gel for ineffectiveness, and declines duloxetine, NSAIDs-reports ineffective -Consult orthopedic spine surgeon to see if he thinks this is related to a cervical spine issue -She apparently requires sedation for MRI-we will hold off on MRI cervical spine unless orthopedic spine surgeon thinks this is necessary -Continue Flexeril as needed -Continue nortriptyline 50 mg p.o. twice daily (3) Chest pain: Reports 1 year of left-sided chest and shoulder pain which is tender to palpation and is musculoskeletal in nature as above Serial troponin negative here x3 Echocardiogram without wall motion abnormalities and with preserved EF further, her cardiac cath about 1 year ago showed, at most, 30% lesions (see full results in PMH section) no other acute findings on CTA chest (4) Palpitations: long-standing problem, but acutely worse over the last 3 days prior to admission secondary to benzodiazepine withdrawal Now resolved with restarting lorazepam that she had run out of 1 week prior Telemetry with sinus rhythm and sinus tachycardia Echocardiogram as above Okay to transfer to telemetry (5) Benzodiazepine withdrawal: Patient ran out of her longstanding Ativan 1 mg p.o. 3 times daily as she is in between PCPs and could not get an appointment soon enough As above, now tolerating p.o. and continues on home dose of Ativan 1 mg p.o. 3 times daily-recommended slow taper down off of this as an outpatient and replacement with a safer drug for anxiety (6) Hyponatremia: 2nd volume contraction as well as some pseudohyponatremia from hyperglycemia. Now resolved with hydration Discontinue IV fluids (7) Diabetes mellitus type 2, uncontrolled: 11.9% a1c in october. repeat a1c this admission slightly improved but remains elevated at 10.4% fortunately no DKA or HONK. Blood sugars now improved Pharmacy is managing with Lantus and NovoLog Needs improved control as an outpatient-she will follow-up with PCP (8) Right second toe ulcer: received course of amoxicillin or augmentin following her [facility] stay a few weeks ago. certainly she continues w/ ulcer but it does not have purulent drainage. will consult wound care nurse. until they provide their recommendations will place aquacel silver on the ulceration and cover w/ optifoam. has good pulses in right foot but may have microvascular disease from DM making wound healing problematic. follows with wound care center in [place]. (9) History of cardiac cath: nonobstructive disease found on cath 09/2019 - [facility] it is reassuring that despite 3 straight days of chest pains, palpitations, etc her troponins are negative and she has no ST changes Continue aspirin, atorvastatin, lisinopril (10) Hyperlipidemia: cont lipitor cont asa (11) Esophagitis: dx with such at [facility] ~ [address] on IV PPI twice daily and now will convert to p.o. as she is tolerating p.o. cont carafate qid I requested records from [facility] to verify the EGD findings (12) Gastroparesis: Suspected diagnosis during admission earlier this year she had rapid response to reglan at that time. Restart Reglan here she was set up to see Dr Gonzalez from GI post-discharge but did not show for that appointment. she is not sure if she has ever had a gastric emptying study. Follow-up as an outpatient for gastric emptying study if persists -Tolerating regular diet (13) Chronic back pain: receives prn narcotics from PCP for this saw Dr Veras in October of this year for various musculoskeletal complaints She was requiring IV Dilaudid here as well as IV Toradol-IV Dilaudid discontinued as above She will need to follow-up with PCP for this Continue nortriptyline 50 mg p.o. twice daily -She was also recently started on amitriptyline 25 at night-discontinued she also is on nortriptyline which she has been on for years Continue cyclobenzaprine (14) Nausea & vomiting: Secondary to benzodiazepine withdrawal as above Now improved with replacement of lorazepam as well as antiemetics Zofran and Phenergan (15) DVT prophylaxis: Continue Lovenox Disposition-continued stay for persistent left shoulder pain as above Admission and Anticipated Discharge Date Admission Date: January 24, 2021 Subjective Patient was seen on 3 separate occasions today for continued complaints of left neck and shoulder pain. She was tearful at all 3 visits. She expresses frustration that "doctors just do not believe me" in regards to the severe pain that she is having. She persistently asked for IV opioids all day long, and persistently declined nonopioid alternatives. The nurse finally did convince her to accept Toradol and Tylenol. She reports that this did not help. She reports the Voltaren gel does not help her as she has tried it before. She also reports that gabapentin makes her vomit, and that Lyrica was ordered for her as an outpatient but it was too expensive and not covered by her insurance. She also took duloxetine for 1 month but reports that it did not help so she stopped it. She reports that she had an MRI of the left shoulder recently and her stay at [facility], but does not know what it showed. She has not had an MRI of the neck. Patient threatened at least 2 times today that she would leave AGAINST MEDICAL ADVICE if she did not receive IV opioid pain medicine. She also reported that she would not work with physical therapy as it only further aggravates her pain. Furthermore, she reports that she would never want to get a steroid injection in her neck or her shoulder due to concerns for it elevating her blood sugars (despite her hemoglobin A1c being greater than 10 already), but she would be willing to have a neck surgery. She reports pain in the left shoulder radiating to the left chest and axilla and sometimes in the left side of the neck and down to the left hand that is severe, constant, for the last 9 to 10 months. She does report that she fell down some stairs in February 2020 but did not have pain like this until couple of months later. She does have tingling in the left hand. After much discussion and consultation with orthopedic surgery regarding her left shoulder, patient was agreeable to increased dose of oxycodone but I advised her I wanted to get to the bottom of her pain and not continue to cover it up with IV opioids which is not a long-term solution. I discussed her care with orthopedic surgeon. Review of Systems Review of Systems: All systems reviewed & are unremarkable except as noted in HPI & below Physical Exam Constitutional: WD/WN, vitals as above Eyes: + anicteric sclerae Neck: trachea midline, no thyromegaly Respiratory: normal respiratory effort, lungs clear to auscultation Cardiovascular: RRR, no murmur, no edema Chest (Breasts): Chest: normal inspection of chest Gastrointestinal (Abdomen): normal bowel sounds, soft, nontender, no hepat osplenomegaly Musculoskeletal: Extremities: extremities normal to inspection; no cyanosis and no clubbing Positive exquisite tenderness to palpation over entire left shoulder and left side of neck, no masses or skin changes noted. No left axillary lymphadenopathy or masses 5/5 strength throughout upper extremities Skin: no rashes, warm and dry + wound (Small ulcer right second toe, sloughed dried skin) Neurologic: moves all extremities and awake; no focal motor deficits Psychiatric: Orientation: alert and oriented x 3 Affect: + tearful affect Lymphatic: no lymphedema Results & Data Results & Data ([facility]) Vital Signs (Past 12 Hours) Vital Signs Temp Pulse Resp BP BP Pulse Ox 01/26/21 16:07 36.3 C L 94 H 18 144/81 H 96 01/26/21 14:57 36.6 C 111 H 21 164/95 H 97 01/26/21 14:00 100 H 01/26/21 11:27 37.0 C 97 H 18 117/77 95 Laboratory Results 01/26/21 01/26/21 01/26/21 Range/Units 20:37 17:01 11:13 WBC (4.8-10.8) K/uL RBC (4.2-5.4) M/uL Hgb (12.0-16.0) g/dL Hct (37-47) % MCV (80-100) fL MCH (25-34) pg MCHC (32-36) g/dL RDW Std Deviation (36.4-46.3) fL RDW Coeff of Maria Del Carmen (11.5-14.5) % Plt Count (130-400) K/uL MPV (7.4-10.4) fL Immature Gran % (Auto) % Neut % (Auto) % Lymph % (Auto) % [place] % (Auto) % Eos % (Auto) % Baso % (Auto) % Neut # (Auto) (1.4-6.5) K/uL Lymph # (Auto) (1.2-3.4) K/uL [place] # (Auto) (0.11-0.59) K/uL Eos # (Auto) (0-0.5) K/uL Baso # (Auto) (0-0.2) K/uL Immature Gran # (Auto) (0.00-0.02) K/uL ESR (0-30) mm/hr Sodium (136-145) mmol/L Potassium (3.5-5.1) mmol/L Chloride (98-107) mmol/L Carbon Dioxide (21-32) mmol/L Anion Gap (3-11) BUN (7-18) mg/dl Creatinine (0.6-1.2) mg/dl Est Cr Clr Drug Dosing ml/min Est GFR ( Amer) ml/min Est GFR (Non-Af Amer) ml/min BUN/Creatinine Ratio (10-20) Glucose (70-99) mg/dl POC Glucose 111 H 92 115 H (70-99) mg/dl Calcium (8.5-10.1) mg/dl Magnesium (1.8-2.4) mg/dl C-Reactive Protein (0-0.29) mg/dl 01/26/21 01/26/21 01/26/21 Range/Units 07:08 07:06 07:06 WBC (4.8-10.8) K/uL RBC (4.2-5.4) M/uL Hgb (12.0-16.0) g/dL Hct (37-47) % MCV (80-100) fL MCH (25-34) pg MCHC (32-36) g/dL RDW Std Deviation (36.4-46.3) fL RDW Coeff of Maria Del Carmen (11.5-14.5) % Plt Count (130-400) K/uL MPV (7.4-10.4) fL Immature Gran % (Auto) % Neut % (Auto) % Lymph % (Auto) % [place] % (Auto) % Eos % (Auto) % Baso % (Auto) % Neut # (Auto) (1.4-6.5) K/uL Lymph # (Auto) (1.2-3.4) K/uL [place] # (Auto) (0.11-0.59) K/uL Eos # (Auto) (0-0.5) K/uL Baso # (Auto) (0-0.2) K/uL Immature Gran # (Auto) (0.00-0.02) K/uL ESR 15 (0-30) mm/hr Sodium (136-145) mmol/L Potassium (3.5-5.1) mmol/L Chloride (98-107) mmol/L Carbon Dioxide (21-32) mmol/L Anion Gap (3-11) BUN (7-18) mg/dl Creatinine (0.6-1.2) mg/dl Est Cr Clr Drug Dosing ml/min Est GFR ( Amer) ml/min Est GFR (Non-Af Amer) ml/min BUN/Creatinine Ratio (10-20) Glucose (70-99) mg/dl POC Glucose 129 H (70-99) mg/dl Calcium (8.5-10.1) mg/dl Magnesium (1.8-2.4) mg/dl C-Reactive Protein 0.55 H (0-0.29) mg/dl 01/26/21 01/26/21 01/25/21 Range/Units 07:06 07:06 23:55 WBC 12.13 H (4.8-10.8) K/uL RBC 4.53 (4.2-5.4) M/uL Hgb 12.9 (12.0-16.0) g/dL Hct 37.4 (37-47) % MCV 82.6 (80-100) fL MCH 28.5 (25-34) pg MCHC 34.5 (32-36) g/dL RDW Std Deviation 39.4 (36.4-46.3) fL RDW Coeff of Maria Del Carmen 13.0 (11.5-14.5) % Plt Count 312 (130-400) K/uL MPV 9.7 (7.4-10.4) fL Immature Gran % (Auto) 0.2 % Neut % (Auto) 63.7 % Lymph % (Auto) 26.1 % [place] % (Auto) 6.6 % Eos % (Auto) 3.2 % Baso % (Auto) 0.2 % Neut # (Auto) 7.71 H (1.4-6.5) K/uL Lymph # (Auto) 3.17 (1.2-3.4) K/uL [place] # (Auto) 0.80 H (0.11-0.59) K/uL Eos # (Auto) 0.39 (0-0.5) K/uL Baso # (Auto) 0.03 (0-0.2) K/uL Immature Gran # (Auto) 0.03 H (0.00-0.02) K/uL ESR (0-30) mm/hr Sodium 137 (136-145) mmol/L Potassium 4.1 (3.5-5.1) mmol/L Chloride 107 (98-107) mmol/L Carbon Dioxide 25 (21-32) mmol/L Anion Gap 5.0 (3-11) BUN 11 (7-18) mg/dl Creatinine 0.46 L (0.6-1.2) mg/dl Est Cr Clr Drug Dosing 125.8 ml/min Est GFR ( Amer) 128.9 ml/min Est GFR (Non-Af Amer) 111.2 ml/min BUN/Creatinine Ratio 22.6 H (10-20) Glucose 126 H (70-99) mg/dl POC Glucose 108 H (70-99) mg/dl Calcium 8.4 L (8.5-10.1) mg/dl Magnesium 2.0 (1.8-2.4) mg/dl C-Reactive Protein (0-0.29) mg/dl Diagnostic Findings Shoulder X-Ray 01/26/21 10:32 XR shoulder LT min 2V routine CLINICAL HISTORY: left shoulder pain COMPARISON: None. DISCUSSION: The bones and joint spaces appear intact. There is no evidence of fracture, dislocation or bony disease. There is no evidence for soft tissue swelling. IMPRESSION: Negative study. ACT 112: Negative or not required by law. The above report was generated using voice recognition software. It may contain grammatical, syntax or spelling errors. Electronically signed by: Ora Lopez DO 01/26/2021 3:08 PM PG Care Time/CCT Total # of Minutes Spent Total Time Spent with Patient: Total time spent is greater than 50% in coordination of care (as documented) at patient's floor/unit and/or counseling patient: Prolonged Care Time Prolonged Care Time: Yes Total Prolonged Care Time: 60 Coding Level of Care Code 83741 Subseq Hosp Care Lvl 3 (25 - SIGNIFICANT, SEPARATELY IDENTIFIABLE ) Diagnoses Tachycardia R00.0 Left shoulder pain M25.512 Chest pain R07.2 Chest pain type: precordial pain Palpitations R00.2 Benzodiazepine withdrawal F13.239 Hyponatremia E87.1 Diabetes mellitus type 2, uncontrolled E11.65 Right second toe ulcer L97.519 History of cardiac cath Z98.890 Hyperlipidemia E78.5 Esophagitis K20.90 Gastroparesis K31.84 Chronic back pain M54.9; G89.29 Nausea & vomiting R11.2 DVT prophylaxis Z29.9 Additional Codes Prolonged Care Time - Prolonged Care Time: Yes ([id number]) (1) Chest pain Chest pain type: precordial pain Qualified Code(s): R07.2 - Precordial pain
[2021-01-26] MEDS: oxyCODONE HCL IR 5 MG TAB (IMMEDIATE RELEASE) PO PRN (21:44)
[2021-01-26] MEDS: ATORVASTATIN 40 MG TAB PO SCH (21:51)
[2021-01-26] MEDS: rOPINIRole HCL 1 MG TABLET PO SCH (21:51)
[2021-01-26] MEDS: ENOXAPARIN INJ 40 MG/0.4 ML SYR SQ SCH (21:56)
[2021-01-26] MEDS: ZOLPIDEM TARTRATE 10 MG TAB PO SCH (21:56)
[2021-01-27] MEDS: KETOROLAC TROMETHAMINE 15 MG/ML VIAL IV PRN ×3 (01:01→19:52)
[2021-01-27] MEDS: oxyCODONE HCL IR 5 MG TAB (IMMEDIATE RELEASE) PO PRN ×5 (02:15→22:02)
[2021-01-27] MEDS: SUCRALFATE 1 GM TAB PO SCH ×4 (08:39→20:54)
[2021-01-27] MEDS: ASPIRIN 81 MG ECTAB PO SCH (08:39)
[2021-01-27] MEDS: LORazepam 1 MG TAB PO SCH ×3 (08:40→20:53)
[2021-01-27] MEDS: PANTOprazole 40 MG TAB PO SCH ×2 (08:40→20:54)
[2021-01-27] MEDS: METOCLOPRAMIDE HCL 5 MG TABLET PO SCH ×3 (08:40→17:48)
[2021-01-27] MEDS: CYCLOBENZAPRINE HCL 10 MG TAB PO SCH ×2 (08:40→20:54)
[2021-01-27] MEDS: NORTRIPTYLINE HCL 25 MG CAP PO SCH ×2 (08:40→20:54)
[2021-01-27] MEDS: lisinopril 10 MG TAB PO SCH (08:40)
--- NOTE | 2021-01-27 08:40 | XRay Report ---
CERVICAL SPINE 4 VIEWS HISTORY: left sided neck pain,radicular symptoms COMPARISON: Cervical spine 10/27/2020. FINDINGS: The cervical spine is visualized from C1 through the superior endplate of T1. There is no f racture. No subluxation. Disc spaces are preserved. Prevertebral soft tissues and the atlantodens in terval are intact. Straightening of the cervical spine. IMPRESSION: No fracture or subluxation within the cervical spine. ACT 112: Negative or not required by law. Electronically signed by: Ernst Murray M.D. 01/27/2021 8:39 AM
--- NOTE | 2021-01-27 09:48 | Consultation ---
Date of Consultation January 27, 2021 Assessment & Plan (1) Left shoulder pain: After evaluating the patient her symptoms do not seem radicular in nature. My suspicion is ongoing chronic left shoulder issues as well as possible peripheral nerve entrapment/carpal tunnel syndrome. My suggestion would be to await for the scans from [place] from her shoulder as this is my strong suspicion that this is the primary source of her pain. If negative, would consider MRI of the cervical spine. Would also consider EMG of the left upper extremity but this certainly may be performed on an outpatient basis. Supervising Physician Co-Signing Physician Notes Dr. Vince Morrow History of Present Illness This is a 55-year-old female that we are asked to see in consultation regarding her cervical spine. Patient has chronic neck pain as well as left upper extremity symptoms emanating from a fall in February 2020. She fell down the steps with her left arm outstretched on the railing. She states she went to the [place] emergency room. She seems to have been lost in follow-up though. More recently over the past couple months has had physical therapy focusing on the left shoulder. No real improvement. She also reports having some type of updated imaging in [place] but she is unsure if it the left shoulder CT or MRI. Again no real follow-up per the patient after this. Current symptoms are left trapezius area rating down the left shoulder, armpit and axilla, pec. It stops at the elbow. It then has paresthesias into all fingers on the left. Right upper extremities asymptomatic. She is right-hand dominant. She feels she is dropping things in her left hand. Denies any changes in balance. Ambulates independently. Does not take any medication at home for this. She states her pain is constant. Nothing really exacerbates or alleviates it. Denies a Lhermitte's phenomenon. Negative denies Spurling sign. She denies any type of recent work-up or treatment for her cervical spine. She does have a history of a prior lumbar surgery at [facility] in [place] in 2004. Upon admission CRP is elevated, sed rate normal, white count is elevated as well as hemoglobin A1c. Attending Physician: Sangeeta Ko MD Allergies Allergy/AdvReac Type Severity Reaction Status Date / Time morphine Allergy Severe blisters Verified 01/24/21 08:53 in mouth Sulfa (Sulfonamide Allergy Severe rash/swelli Verified 01/24/21 08:53 Antibiotics) ng Home Medications Medication Instructions Recorded Confirmed Type Lillian Willard U-100 Insulin 40 unit SUBCUT HS 10/19/20 01/24/21 History albuterol 90 mcg INHALATION QID PRN 10/19/20 01/24/21 History aspirin 81 mg PO DAILY 10/19/20 01/24/21 History cyclobenzaprine 10 mg PO BID 10/19/20 01/24/21 History diclofenac sodium [Voltaren] 1 g TOPICAL BID PRN 10/19/20 01/24/21 History lorazepam [Ativan] 1 mg PO TID 10/19/20 01/24/21 History nortriptyline 50 mg PO BID 10/19/20 01/24/21 History pantoprazole 40 mg PO BID 10/19/20 01/24/21 History ropinirole 4 mg PO HS 10/19/20 01/24/21 History sucralfate 1 g PO ACHS 10/19/20 01/24/21 History zolpidem [Ambien] 10 mg PO HS 10/19/20 01/24/21 History metoclopramide HCl 5 mg PO AC #60 tab 10/21/20 01/24/21 Rx lancets #100 ea 11/12/20 11/12/20 History amitriptyline 25 mg PO HS 01/24/21 01/24/21 History amoxicillin-pot clavulanate 1 tab PO BID 01/24/21 01/24/21 History atorvastatin 40 mg PO PM 01/24/21 01/24/21 History ergocalciferol (vitamin D2) 1,250 mcg PO WK 01/24/21 01/24/21 History lisinopril 10 mg PO DAILY 01/24/21 01/24/21 History ondansetron 4 mg PO TID PRN 01/24/21 01/24/21 History Patient History Medical History Chest pain Chronic back pain Depression DM2 (diabetes mellitus, type 2) Gastritis GIB (gastrointestinal bleeding) Hyperlipidemia Insulin dependent diabetes mellitus Nonobstructive atherosclerosis of coronary artery Seizures Surgical History History of cardiac cath done at [facility]; 09/22/19; LM - mild luminal irregularities. LAD - mid 20-30%, distal with myocardial bridge & 30% stenosis. L Cx - mild luminal irregularities. RCA - proximal <30% stenosis; mid/distal vessel mild plaques. PDA - mild luminal irregularities. History of esophagogastroduodenoscopy (EGD) Family History Mother , age 63 Myocardial infarction Father , age 68 or 69 Myocardial infarction Brother S/P CABG (coronary artery bypass graft) Sister Myocardial infarction x 3; she is 57yo Social History Smoking Status: Never smoker packs per day: 1; Years Smoked: 20; Smoking End Date: 07/2020; Do You Dip or Chew Tobacco: No; Hx Alcohol Use: No Hx Substance Use: Yes Substance Use Type Other:: medical marijuana Preferred Language: Faroese Communication Ability: Effective Tire Fabric Inspector Required: No Beliefs That Will Affect Care: None marital status: Current Living Situation: Spouse 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 She is alert and oriented x3 she is able to transition to a seated position with ease. She has breakaway weakness over the left deltoid due to shoulder pain. Otherwise strength is 5 5 bilateral finger intrinsics, finger sensors, finger flexors, wrist extensors, biceps, triceps, deltoid. She has tenderness over the left trapezius musculature. No evidence of upper motor neuron signs bilaterally. Negative Lhermitte's and negative Spurling sign bilaterally no evidence of ankle clonus bilaterally She has a positive Phalen's and Tinel's sign on the left, negative on the right Negative cubital tunnel sign on the left. She has significant pain to palpation over the left shoulder and with both passive and active range of motion of the left shoulder. Constitutional: WD/WN, vitals as above Eyes: normal visual cardozo by confrontation ENMT: external ear and nose normal, oropharynx normal Neck: trachea midline Respiratory: normal respiratory effort Cardiovascular: Extremities: normal capillary refill Chest (Breasts): normal inspection/palpation of breasts Gastrointestinal (Abdomen): Inspection/Auscultation: abdomen normal to inspection Musculoskeletal: no cyanosis or clubbing, extremities motor strength 5/5 Skin: no rashes, warm and dry Neurologic: normal touch/pain/proprioception and moves all extremities Psychiatric: A+Ox3, euthymic affect Results & Data ([facility]) Vital Signs (Past 12 Hours) Vital Signs Temp Pulse Resp BP Pulse Ox 01/27/21 07:38 36.5 C 81 16 127/75 90 01/26/21 22:51 36.5 C 94 H 16 123/80 99 Diagnostic Findings [facility], [phone] XRay Report Patient: SIRENA ESCOBARRAAdmit Date: 01/24/21#: [id number]: [id number] RDAcct ID:[id number]: Date: 1965[facility] Zip: [place], [place] [address]Oso: 55Location: 3WSex: FRoom/Bed: [address] Phy: Sangeeta Ko, AMYiagnosis: PALPITATIONS,HYPONATREMIA,HYPERGLYCEMIA,CHEST PAINPri Phy: Vince Vernon, DOService Date: 01/27/21Fa Phy:Interpreting Phy: Ernst Murray MDAdmit Phy: Silvestre Carvajal MD Ordering Phy: Sangeeta Ko MD cc: ~ CERVICAL SPINE 4 VIEWS HISTORY: left sided neck pain,radicular symptoms COMPARISON: Cervical spine 10/27/2020. FINDINGS: The cervical spine is visualized from C1 through the superior endplate of T1. There is no fracture. No subluxation. Disc spaces are preserved. Prevertebral soft tissues and the atlantodens interval are intact. Straightening of the cervical spine. IMPRESSION: No fracture or subluxation within the cervical spine. ACT 112: Negative or not required by law. Electronically signed by: Ernst Murray M.D. 01/27/2021 8:39 AM Dictated: 01/27/2137Transcribed: 01/27/21 0837
[2021-01-27] MEDS: INSULIN ASPART 100 UNITS/ML 3 ML PEN SC SCH ×4 (09:56→20:55)
[2021-01-27] MEDS: INSULIN GLARGINE SOLOSTAR 100 UNITS/ML 3 ML PEN SC SCH (09:58)
--- NOTE | 2021-01-27 10:51 | Pharmacy Report ---
Pharmacy Glycemic Short Note 2 - Date of Service January 27, 2021 - Glycemic Short BSG Results (Last 24 hours): 01/26/21 01/26/21 01/26/21 11:13 17:01 20:37 POC Glucose 115 H 92 111 H 01/27/21 07:59 POC Glucose 125 H OUTPATIENT ANTIDIABETIC REGIMEN: * Lantus 40 units SC HS * Novolog 10 units SC TIDM * HbA1c: 10.4% (01/25/21), 11.9% (10/20/20) ASSESSMENT: 01/27 * Pt has received 46 units of insulin over the past 24hrs * 30 units of basal with Lantus * 16 units of bolus with NovoLog * BSGs [id number] mg/dl * All BSGs in goal range with current orders. No changes needed at this time. Will try to start working Lantus back to HS since this is how patient takes it as an outpatient. 01/26 * BSGs improved yesterday, 198, 135, 104, and 129 mg/dL * Received 26 units of insulin (20 units of basal and 6 units of prandial/correctional) * Diet advanced to regular yesterday - eating well based on carb counts * Will likely need to increase basal insulin today 01/25 * SI is a 55 year old female with insulin-dependent type 2 DM * Admitted yesterday afternoon for evaluation of chest pain/heart palpitations * Patient reports nausea and vomiting with poor PO intake x 3 days * Currently NPO at this time * BSG of 249 mg/dL at time of consult - ordered Lantus at 75% of home dose given NPO status * Novolog was ordered q4h, but was non-administered by RN (unclear reason, as BSGs were all above goal range) * Fasting BSG of 198 mg/dL this morning - will plan to give BID basal moving forward PLAN FOR INPATIENT GLYCEMIC CONTROL: * Basal insulin * Lantus 20 units SQ this morning + Lantus 10 units SQ HS tonight, then. * Lantus 30 units tomorrow (01/27) with Lunch; then with dinner 01/29; finally at HS 01/30. Will adjust dosing as needed * Bolus insulin - continue * NovoLog per scale ACHS or Q4hrs while NPO * Goal Range: Low 110 mg/dL - High 140 mg/dL * Correction Factor: 25 mg/dL/unit * Nutritional / Prandial insulin per carb ratio of 1 unit per 8 grams CHO consumed PLAN FOR DISCHARGE: * HbA1c of 10.4% is improved from October, but still significantly above goal of less than 7% * Will follow inpatient insulin needs and make recommendations as appropriate * Will be highly dependent on PO intake at discharge
--- NOTE | 2021-01-27 11:09 | Orthopedic Progress Note ---
Date of Service January 27, 2021 Assessment & Plan (1) Left shoulder pain: Patient was educated regarding today's findings. Records from [place] still have not been obtained. This was discussed with the confidential secretary and charge nurse. They will attempt to obtain those records today. Possibility of rotator cuff injury was discussed with the patient, given her fall and subsequent persisting shoulder pain. Possibility of nerve impingement was also discussed with the patient, whether at the spinal level, cubital tunnel, or carpal tunnel. We will continue to follow while she is admitted. Awaiting records before determining on any additional imaging. Of note, she did have cervical spine films obtained this morning, and they are unremarkable. I, Dr. Patterson, saw and examined the patient and discussed the management with my PA. I reviewed my PAs note and agree with the documented findings and the plan of care I developed. She does not appear to have a shoulder infection. Shoulder pain likely secondarily to Impingement. UE numbness and tingling likely due to Carpal Tunnel, Cubital tunnel versus double crush phenomenon. EMG/NCS can be obtained as an outpatient. Follow-up as an outpatient in the office for shoulder with records from [place], as they have not been received Spoke with Dr. Ko about plan. Continue care per primary service. Admission and Anticipated Discharge Date Admission Date: January 24, 2021 Subjective Patient is seen in her room this morning. She states she continues to have pain in the left shoulder. She states it is severe. When I entered the room, she was laying on the left shoulder with her arm tucked underneath her. In sitting up, she does post on the left arm. Through further questioning, she states the shoulder pain is severe. She states she fell in February, and prior to this, did not have any shoulder pain. She has been evaluated in [place] but is currently unsure as to what imaging studies she had as well as what they may have shown. She complains of tingling in the left arm. Denies any current numbness. Physical Exam Physical Exam: General: Well-developed, well-nourished, middle-aged female, in no acute distress. Sitting in her bed. Alert and oriented. Conversive. Skin: Warm dry with good turgor. No rashes or lesions. No ecchymosis or erythema. No edema. Musculoskeletal: Left shoulder evaluation reveals global tenderness with palpation. Her worst discomfort seems to be over the rotator cuff. She has full range of motion of the elbow and wrist. Forward flexion easily to 140 degrees, abduction easily to 140 degrees, both actively. Internal rotation with her palm against her abdomen. Refuses to reach behind her back, stating it will hurt too much. External rotation of approximately 30 degrees. Neurologic: Gross sensation is intact across all aspects of left arm by soft touch. She complains of decreased subjective sensation and tingling in the entire arm and hand. Peripheral pulses are 2+. Results & Data ([facility]) Vital Signs (Past 12 Hours) Vital Signs Temp Pulse Resp BP Pulse Ox 01/27/21 07:38 36.5 C 81 16 127/75 90 Diagnostic Findings CERVICAL SPINE 4 VIEWS HISTORY: left sided neck pain,radicular symptoms COMPARISON: Cervical spine 10/27/2020. FINDINGS: The cervical spine is visualized from C1 through the superior endplate of T1. There is no fracture. No subluxation. Disc spaces are preserved. Prevertebral soft tissues and the atlantodens interval are intact. Straightening of the cervical spine. IMPRESSION: No fracture or subluxation within the cervical spine.
[2021-01-27] MEDS: ACETAMINOPHEN 325 MG TAB PO PRN ×3 (11:18→22:01)
--- NOTE | 2021-01-27 17:11 | Hospitalist Progress Note ---
Date of Service January 27, 2021 Assessment & Plan (1) Tachycardia: Sinus tachycardia upon presentation which is now significantly improved after treating benzodiazepine withdrawal with Ativan She was also volume contracted from nausea/vomiting and was given IV fluids No atrial dysrhythmia seen. EKG w/o ST changes. TSH checked - no hyperthyroidism. CTA chest w/o PEs. Echocardiogram with hyperdynamic EF, mild LVH, otherwise normal -Continue home lorazepam 1 mg p.o. 3 times daily -Transferred off telemetry (2) Left shoulder pain: With 9 to 10-month history of severe left shoulder/chest/axilla/neck pain radiating at times on the left arm with tingling in the left hand Occurred 2 months after a fall downstairs last February. Apparently she has had extensive work-up of this already of the shoulder at [facility] with MRI and orthopedics evaluation. She does not recall the final outcome, but thinks that she was told she had an infection in her shoulder. There is no evidence of infection here. ESR and CRP are essentially normal. There is no effusion, erythema, or other clinical signs of infection in the joint. Shoulder xray negative C-spine xray negative Appreciate orthopedic surgery consultation-need to request records from [place], would not want to inject steroids if has potential infection although this seems not likely -Physical therapy ordered-was given home exercises but refuses further outpt PT as reports this has made her feel worse in the past -pain now with improved control with oxycodone 10 mg p.o. every 4 hours as needed, discontinued IV Dilaudid as she needs a solution she can take home with her -Patient declines gabapentin for vomiting, Voltaren gel for ineffectiveness, and declines duloxetine, NSAIDs-reports ineffective -Consulted orthopedic spine surgeon to see if he thinks this is related to a cervical spine issue-they do not think this is cervical radiculopathy, but recommend outpt EMG LUE for suspected cubital and carpal tunnel syndrome -She apparently requires sedation for MRI-we will hold off on MRI cervical spine unless orthopedic spine surgeon thinks this is necessary -Continue Flexeril as needed -Continue nortriptyline 50 mg p.o. twice daily Pt can be discharged to home tomorrow AM even if outside records have not been received--> will have her f/u with [facility] as an outpt. I will give her a short term supply of oxycodone, but stressed the IMPORTANCE of close follow up with her PCP and Ortho rather than multiple return trips to ERs and hospitals (3) Chest pain: Reports 1 year of left-sided chest and shoulder pain which is tender to palpation and is musculoskeletal in nature as above Serial troponin negative here x3 Echocardiogram without wall motion abnormalities and with preserved EF further, her cardiac cath about 1 year ago showed, at most, 30% lesions (see full results in PMH section) no other acute findings on CTA chest (4) Palpitations: long-standing problem, but acutely worse over the last 3 days prior to admission secondary to benzodiazepine withdrawal Now resolved with restarting lorazepam that she had run out of 1 week prior Telemetry with sinus rhythm and sinus tachycardia Echocardiogram as above has been transferred off tele (5) Benzodiazepine withdrawal: Patient ran out of her longstanding Ativan 1 mg p.o. 3 times daily as she is in between PCPs and could not get an appointment soon enough As above, now tolerating p.o. and continues on home dose of Ativan 1 mg p.o. 3 times daily-recommended slow taper down off of this as an outpatient and replacement with a safer drug for anxiety (6) Hyponatremia: 2nd volume contraction as well as some pseudohyponatremia from hyperglycemia. Now resolved with hydration Discontinue IV fluids (7) Diabetes mellitus type 2, uncontrolled: 11.9% a1c in october. repeat a1c this admission slightly improved but remains elevated at 10.4% fortunately no DKA or HONK. Blood sugars now improved Pharmacy is managing with Lantus and NovoLog Needs improved control as an outpatient-she will follow-up with PCP. WIll recommend increase in her Lantus dosing as an outpt (8) Right second toe ulcer: received course of amoxicillin or augmentin following her [facility] stay a few weeks ago. certainly she continues w/ ulcer but it does not have purulent drainage. will consult wound care nurse appreciated until they provide their recommendations will place aquacel silver on the ulceration and cover w/ optifoam. has good pulses in right foot but may have microvascular disease from DM making wound healing problematic. follows with wound care center in [place]. (9) History of cardiac cath: nonobstructive disease found on cath 09/2019 - [facility] it is reassuring that despite 3 straight days of chest pains, palpitations, etc her troponins are negative and she has no ST changes Continue aspirin, atorvastatin, lisinopril (10) Hyperlipidemia: cont lipitor cont asa (11) Esophagitis: dx with such at [facility] ~ [address] on IV PPI twice daily and now will convert to p.o. as she is tolerating p.o. cont carafate qid I requested records from [facility] to verify the EGD findings (12) Gastroparesis: Suspected diagnosis during admission earlier this year she had rapid response to reglan at that time. Restarted Reglan here on scheduled basis she was set up to see Dr Gonzalez from GI post-discharge but did not show for that appointment. she is not sure if she has ever had a gastric emptying study. Follow-up as an outpatient for gastric emptying study if persists -Tolerating regular diet without any problems here now (13) Chronic back pain: receives prn narcotics from PCP for this saw Dr Veras in October of this year for various musculoskeletal complaints She was requiring IV Dilaudid here as well as IV Toradol-IV Dilaudid discontinued as above She will need to follow-up with PCP for this Continue nortriptyline 50 mg p.o. twice daily -She was also recently started on amitriptyline 25 at night-discontinued she also is on nortriptyline which she has been on for years Continue cyclobenzaprine (14) Nausea & vomiting: Secondary to benzodiazepine withdrawal as above Now improved with replacement of lorazepam as well as antiemetics Zofran and Phenergan with constipation likely opioid-induced--> start Miralax daily (15) DVT prophylaxis: Continue Lovenox Disposition-continued stay but can likely be discharged to home in the AM when her can pick her up Admission and Anticipated Discharge Date Admission Date: January 24, 2021 Subjective Pt reports pain in left shoulder still present but improved since taking regular oxycodone 10mg. She is eating and drinking, no BM since admission. Is much more calm and not tearful today. Still have not received her outside records for review. I discussed her care with [facility] who thinks this pain is more from shoulder and not cervical radiculopathy. Denies any other concerns. Worked with PT today and learned some exercises for shoulder, walked the halls and up and down the stairs Review of Systems Review of Systems: All systems reviewed & are unremarkable except as noted in HPI & below Physical Exam Constitutional: WD/WN, vitals as above Eyes: + anicteric sclerae Neck: trachea midline, no thyromegaly Respiratory: normal respiratory effort, lungs clear to auscultation Cardiovascular: RRR, no murmur, no edema Chest (Breasts): Chest: normal inspection of chest Gastrointestinal (Abdomen): normal bowel sounds, soft, nontender, no hepatosplenomegaly Musculoskeletal: Extremities: extremities normal to inspection; no cyanosis and no clubbing +TTP over posterior and anterior shoulder Skin: no rashes, warm and dry Neurologic: moves all extremities and awake; no focal motor deficits Psychiatric: A+Ox3, euthymic affect Lymphatic: no lymphedema Results & Data Results & Data ([place]) Vital Signs (Past 12 Hours) Vital Signs Temp Pulse Resp BP Pulse Ox 01/27/21 15:36 36.4 C L 89 16 150/77 H 96 01/27/21 07:38 36.5 C 81 16 127/75 90 Laboratory Results 01/27/21 01/27/21 01/27/21 Range/Units 16:37 11:42 07:59 POC Glucose 120 H 131 H 125 H (70-99) mg/dl 01/26/21 Range/Units 20:37 POC Glucose 111 H (70-99) mg/dl PG Care Time/CCT Total # of Minutes Spent Total Time Spent with Patient: Total time spent is greater than 50% in coordination of care (as documented) at patient's floor/unit and/or counseling patient: Coding Level of Care Code 26318 Subseq Hosp Care Lvl 2 Diagnoses Tachycardia R00.0 Left shoulder pain M25.512 Chest pain R07.2 Chest pain type: precordial pain Palpitations R00.2 Benzodiazepine withdrawal F13.239 Hyponatremia E87.1 Diabetes mellitus type 2, uncontrolled E11.65 Right second toe ulcer L97.519 History of cardiac cath Z98.890 Hyperlipidemia E78.5 Esophagitis K20.90 Gastroparesis K31.84 Chronic back pain M54.9; G89.29 Nausea & vomiting R11.2 DVT prophylaxis Z29.9 (1) Chest pain Chest pain type: precordial pain Qualified Code(s): R07.2 - Precordial pain
[2021-01-27] MEDS: POLYETHYLENE (MIRALAX) 17 GM PACK PO SCH (17:48)
[2021-01-27] MEDS: ZOLPIDEM TARTRATE 10 MG TAB PO SCH (20:53)
[2021-01-27] MEDS: ATORVASTATIN 40 MG TAB PO SCH (20:54)
[2021-01-27] MEDS: rOPINIRole HCL 1 MG TABLET PO SCH (20:54)
[2021-01-27] MEDS: ENOXAPARIN INJ 40 MG/0.4 ML SYR SQ SCH (20:54)
[2021-01-27] MEDS ORDERED: DOCUSATE SODIUM/SENNA 50/8.6MG TAB PO SCH (21:00)
[2021-01-27] MEDS ORDERED: INSULIN GLARGINE SOLOSTAR 100 UNITS/ML 3 ML PEN SC SCH (21:00)
[2021-01-28] MEDS: oxyCODONE HCL IR 5 MG TAB (IMMEDIATE RELEASE) PO PRN ×3 (02:20→09:48)
[2021-01-28] MEDS: ACETAMINOPHEN 325 MG TAB PO PRN ×3 (02:20→09:49)
[2021-01-28] MEDS: KETOROLAC TROMETHAMINE 15 MG/ML VIAL IV PRN (04:52)
[2021-01-28] MEDS: CYCLOBENZAPRINE HCL 10 MG TAB PO SCH (07:40)
[2021-01-28] MEDS: POLYETHYLENE (MIRALAX) 17 GM PACK PO SCH (09:08)
[2021-01-28] MEDS: SUCRALFATE 1 GM TAB PO SCH (09:09)
[2021-01-28] MEDS: METOCLOPRAMIDE HCL 5 MG TABLET PO SCH (09:09)
[2021-01-28] MEDS: ASPIRIN 81 MG ECTAB PO SCH (09:10)
[2021-01-28] MEDS: lisinopril 10 MG TAB PO SCH (09:10)
[2021-01-28] MEDS: PANTOprazole 40 MG TAB PO SCH (09:11)
[2021-01-28] MEDS: LORazepam 1 MG TAB PO SCH (09:13)
[2021-01-28] MEDS: INSULIN ASPART 100 UNITS/ML 3 ML PEN SC SCH (09:21)
--- NOTE | 2021-01-28 09:59 | Discharge Summary ---
Date of Service January 28, 2021 Admission HPI Per Admitting Provider 55yo female with DM for 6 years - insulin-dependent - presents with palpitations/heart racing. The palpitations have been present for nearly 3 days straight. Yesterday she had the palpitations all day and it felt like "her heart was going to jump out of her chest." Palpitations are worse with activity/movement. Son is an EMT and he checked her pulse at home - was 120s yesterday. She has associated chest pain - left breast, with radiation into her left neck and left shoulder. She has shortness of breath with the palpitations. This all makes her anxious. She uses ativan 1mg TID at home for anxiety - has been on this for many years. Ran out 1 week ago. DM - BSGs were 300s or higher all day yesterday. This is despite not having a good appetite yesterday. She came to the ER today because she was scared and she simply felt so poorly. In addition she has had nausea with vomiting for 3 days. "Can't keep anything down." She was hospitalized at [facility] 3 weeks ago. Had EGD and was told she had "esophagitis." Had hematemesis. She also underwent stress test at [facility] and she was told it was normal. She does not follow with a regular GI doctor. There was talk of a referral to Dr Ward (GI) in [facility] but hasn't seen him in 2 years. Has a chronic right foot ulcer and was recently placed on amoxicillin during her stay in [place]. Principal Diagnosis Nausea/vomiting, Dehydration secondary to lorazepam withdrawal; Left shoulder pain Discharge Exam Constitutional WD/WN, vitals as above Eyes + anicteric sclerae Neck trachea midline, no thyromegaly Respiratory normal respiratory effort, lungs clear to auscultation Cardiovascular RRR, no murmur, no edema Chest (Breasts) Chest: normal inspection of chest Gastrointestinal (Abdomen) normal bowel sounds, soft, nontender, no hepatosplenomegaly Musculoskeletal Extremities: extremities normal to inspection; no cyanosis and no clubbing Skin no rashes, warm and dry + wound (Small ulcer right second toe, sloughed dried skin) Neurologic moves all extremities and awake; no focal motor deficits Psychiatric A+Ox3, euthymic affect Lymphatic no lymphedema Discharge Data Allergies Allergy/AdvReac Type Severity Reaction Status Date / Time morphine Allergy Severe blisters Verified 01/24/21 08:53 in mouth Sulfa (Sulfonamide Allergy Severe rash/swelli Verified 01/24/21 08:53 Antibiotics) ng Consultations 01/24/21 11:03 ED Decision to Admit Stat 01/26/21 11:00 Consult Orthopedic Surgery Routine 01/26/21 19:41 Consult Orthopedic Surgery Routine Ordered Studies 01/24/21 09:23 CT abd pelvis IV con only Stat CT angio chest PE protocol Stat Laboratory Results WBC 12.13 K/uL (4.8-10.8) H 01/26/21 07:06 RBC 4.53 M/uL (4.2-5.4) 01/26/21 07:06 Hgb 12.9 g/dL (12.0-16.0) 01/26/21 07:06 Hct 37.4 % (37-47) 01/26/21 07:06 MCV 82.6 fL (80-100) 01/26/21 07:06 MCH 28.5 pg (25-34) 01/26/21 07:06 MCHC 34.5 g/dL (32-36) 01/26/21 07:06 RDW Std Deviation 39.4 fL (36.4-46.3) 01/26/21 07:06 RDW Coeff of [place] 13.0 % (11.5-14.5) 01/26/21 07:06 Plt Count 312 K/uL (130-400) 01/26/21 07:06 MPV 9.7 fL (7.4-10.4) 01/26/21 07:06 Immature Gran % (Auto) 0.2 % 01/26/21 07:06 Neut % (Auto) 63.7 % 01/26/21 07:06 Lymph % (Auto) 26.1 % 01/26/21 07:06 Bay % (Auto) 6.6 % 01/26/21 07:06 Eos % (Auto) 3.2 % 01/26/21 07:06 Baso % (Auto) 0.2 % 01/26/21 07:06 Neut # (Auto) 7.71 K/uL (1.4-6.5) H 01/26/21 07:06 Lymph # (Auto) 3.17 K/uL (1.2-3.4) 01/26/21 07:06 Bay # (Auto) 0.80 K/uL (0.11-0.59) H 01/26/21 07:06 Eos # (Auto) 0.39 K/uL (0-0.5) 01/26/21 07:06 Baso # (Auto) 0.03 K/uL (0-0.2) 01/26/21 07:06 Immature Gran # (Auto) 0.03 K/uL (0.00-0.02) H 01/26/21 07:06 ESR 15 mm/hr (0-30) 01/26/21 07:06 APTT 22.5 Seconds (21.0-31.0) 01/24/21 08:33 PTT Ratio 0.9 01/24/21 08:33 Sodium 137 mmol/L (136-145) 01/26/21 07:06 Potassium 4.1 mmol/L (3.5-5.1) 01/26/21 07:06 Chloride 107 mmol/L (98-107) 01/26/21 07:06 Carbon Dioxide 25 mmol/L (21-32) 01/26/21 07:06 Anion Gap 5.0 (3-11) 01/26/21 07:06 BUN 11 mg/dl (7-18) 01/26/21 07:06 Creatinine 0.46 mg/dl (0.6-1.2) L 01/26/21 07:06 Est Cr Clr Drug Dosing 125.8 ml/min 01/26/21 07:06 Est GFR ( Amer) 128.9 ml/min 01/26/21 07:06 Est GFR (Non-Af Amer) 111.2 ml/min 01/26/21 07:06 BUN/Creatinine Ratio 22.6 (10-20) H 01/26/21 07:06 Glucose 126 mg/dl (70-99) H 01/26/21 07:06 POC Glucose 127 mg/dl (70-99) H 01/28/21 08:15 Estimat Average Glucose 252 mg/dl 01/25/21 05:19 Hemoglobin A1c 10.4 % (4.5-5.6) H 01/25/21 05:19 Lactate 1.8 mmol/L (0.4-2.0) 01/24/21 10:53 Calcium 8.4 mg/dl (8.5-10.1) L 01/26/21 07:06 Phosphorus 3.4 mg/dl (2.5-4.9) 01/24/21 08:33 Magnesium 2.0 mg/dl (1.8-2.4) 01/26/21 07:06 Total Bilirubin 1.0 mg/dl (0.2-1) 01/24/21 08:33 AST 9 U/L (15-37) L 01/24/21 08:33 ALT 25 U/L (12-78) 01/24/21 08:33 Alkaline Phosphatase 112 U/L (45-117) 01/24/21 08:33 Troponin I < 0.015 ng/ml (0-0.045) 01/24/21 20:49 C-Reactive Protein 0.55 mg/dl (0-0.29) H 01/26/21 07:06 Total Protein 9.7 gm/dl (6.4-8.2) H 01/24/21 08:33 Albumin 5.1 gm/dl (3.4-5.0) H 01/24/21 08:33 Globulin 4.6 gm/dl (2.5-4.0) H 01/24/21 08:33 Albumin/Globulin Ratio 1.1 (0.9-2) 01/24/21 08:33 Lipase 48 U/L (73-393) L 01/24/21 08:33 Beta-Hydroxybutyric Acd 3.80 mg/dl (0.2-2.81) H 01/24/21 08:33 TSH 1.120 uIu/ml (0.300-4.500) 01/24/21 08:33 Urine Color Yellow 01/24/21 16:00 Urine Appearance Clear (Clear) 01/24/21 16:00 Urine pH 7.0 (4.5-7.5) 01/24/21 16:00 Ur Specific [place] > 1.045 (1.000-1.030) H 01/24/21 16:00 Urine Protein 1+ (Negative) H 01/24/21 16:00 Urine Glucose (UA) 3+ (Negative) H 01/24/21 16:00 Urine Ketones 1+ (Negative) H 01/24/21 16:00 Urine Blood Negative (Negative) 01/24/21 16:00 Urine Nitrite Negative (Negative) 01/24/21 16:00 Urine Bilirubin Negative (Negative) 01/24/21 16:00 Urine Urobilinogen Negative (Negative) 01/24/21 16:00 Ur Leukocyte Esterase Negative (Negative) 01/24/21 16:00 Urine WBC (Auto) 10-30 /hpf (0-5) H 01/24/21 16:00 Urine RBC (Auto) 0-4 /hpf (0-4) 01/24/21 16:00 U Hyaline Cast (Auto) 1-5 /lpf (0-5) 01/24/21 16:00 U Epithel Cells (Auto) >30 /lpf (0-5) H 01/24/21 16:00 Urine Bacteria (Auto) Negative (Negative) 01/24/21 16:00 COVID-19 Eval Order Covid19 at [facility] 01/24/21 11:10 SARS-CoV-2 (PCR) NEGATIVE (Negative) 01/24/21 11:10 Blood Type AB Positive 01/24/21 08:36 Antibody Screen NEGATIVE 01/24/21 08:36 Impressions Chest X-Ray 01/24/21 08:09 XR chest 1V portable HISTORY: Atypical Chest Pain COMPARISON: Chest 10/19/2020. FINDINGS: The lungs are clear. Cardiac silhouette is normal in size. No pleural effusions. No pneumothorax. IMPRESSION: No acute process. ACT 112: Negative or not required by law. Electronically signed by: Ernst Murray M.D. 01/24/2021 8:59 AM Abdomen/Pelvis CT 01/24/21 09:23 CT OF THE ABDOMEN AND PELVIS WITH CONTRAST CLINICAL HISTORY: Nausea. Shortness of breath. COMPARISON STUDY: CT of the abdomen and pelvis October 20, 2020. TECHNIQUE: Following IV administration of 120 mL of Optiray, axial images of the abdomen and pelvis were obtained from the lung bases to the proximal femurs. Images were reviewed in the axial, sagittal, and coronal planes. IV contrast was administered without complication. Automated exposure control was utilized for the study. A dose lowering technique was utilized adhering to the principles of ALARA. FINDINGS: Please note that the chest CT will be reported separately. No pneumatosis, free air or portal venous gas is present. There is no biliary ductal dilatation status post cholecystectomy. The spleen, adrenal glands, kidneys and pancreas are unremarkable. There is hepatic steatosis. There are no hepatic lesions. No hydronephrosis is present. Caliber and wall thickness of small and large bowel are normal. There is no ascites or lymphadenopathy. There is moderate atherosclerotic plaque of the abdominal aorta which is normal in caliber. No ascites is present. No acute fracture or suspicious lesion is identified within the visualized skeletal structures. Postoperative findings at the lumbosacral junction are noted. The appendix is not visualized. IMPRESSION: 1. No acute process within the abdomen or pelvis. 2. No bowel obstruction. No bowel wall thickening. 3. Hepatic steatosis. ACT 112: Negative or not required by law. Electronically signed by: Wilver Powell M.D. 01/24/2021 10:19 AM Chest CTA 01/24/21 09:23 CT ANGIOGRAM OF THE CHEST CLINICAL HISTORY: Atypical chest pain. Nausea and vomiting. COMPARISON STUDY: Chest x-ray dated 01/24/2021. Chest CT dated 10/19/2020. TECHNIQUE: Following the IV administration of 120 cc of Optiray 350, CT angiogram of the chest was performed from the upper abdomen to the thoracic inlet utilizing the pulmonary embolus protocol. Images are reviewed in the axial, sagittal, and coronal planes. 3-D MIPS images are created and assessed. IV contrast was administered without complication. A dose lowering technique was utilized adhering to the principles of ALARA. CT DOSE: 950.09 mGy.cm FINDINGS: Thyroid: Imaged portions of the thyroid gland are normal in size and attenuation. Thoracic aorta: There is mild atherosclerotic calcification of the thoracic aorta, which is normal in caliber and bovine variant arch anatomy. No dissection is seen. Pulmonary vasculature: The pulmonary trunk is normal in caliber. There are no filling defects identified in main, lobar, or segmental pulmonary branches to suggest pulmonary embolus. Heart: The heart is normal in size and without pericardial effusion. There are coronary artery calcifications. Lungs and pleural spaces: Evaluation of the lung parenchyma is degraded by motion artifact. Emphysematous change is noted. Minimal secretions are noted in the trachea. No airspace consolidation or pleural effusion is identified. Dependent atelectasis is seen at both lung bases. There are scattered calcified granulomas. Mediastinum: There is no mediastinal lymphadenopathy. [place]: Clear. Axillae: There is no axillary lymphadenopathy. Upper abdomen: Cholecystectomy clips are noted. There is a small hiatal hernia. Skeletal structures: No lytic or blastic bony lesions are seen. IMPRESSION: 1. There is no evidence of pulmonary embolus in the main, lobar, or segmental pulmonary arteries. 2. Emphysema. 3. There is no airspace consolidation or pleural effusion. ACT 112: Negative or not required by law. Electronically signed by: Finn Bradshaw M.D. 01/24/2021 10:20 AM Shoulder X-Ray 01/26/21 10:32 XR shoulder LT min 2V routine CLINICAL HISTORY: left shoulder pain COMPARISON: None. DISCUSSION: The bones and joint spaces appear intact. There is no evidence of fracture, dislocation or bony disease. There is no evidence for soft tissue swelling. IMPRESSION: Negative study. ACT 112: Negative or not required by law. The above report was generated using voice recognition software. It may contain grammatical, syntax or spelling errors. Electronically signed by: Ora Lopez DO 01/26/2021 3:08 PM Cervical Spine X-Ray 01/27/21 08:00 CERVICAL SPINE 4 VIEWS HISTORY: left sided neck pain,radicular symptoms COMPARISON: Cervical spine 10/27/2020. FINDINGS: The cervical spine is visualized from C1 through the superior endplate of T1. There is no fracture. No subluxation. Disc spaces are preserved. Prevertebral soft tissues and the atlantodens interval are intact. Straightening of the cervical spine. IMPRESSION: No fracture or subluxation within the cervical spine. ACT 112: Negative or not required by law. Electronically signed by: Ernst Murray M.D. 01/27/2021 8:39 AM Hospital Course (1) Tachycardia: Sinus tachycardia upon presentation which is now resolved after treating b enzodiazepine withdrawal with Ativan She was also volume contracted from nausea/vomiting and was given IV fluids No atrial dysrhythmia seen. EKG w/o ST changes. TSH checked - no hyperthyroidism. CTA chest w/o PEs. Echocardiogram with hyperdynamic EF, mild LVH, otherwise normal -Continue home lorazepam 1 mg p.o. 3 times daily (2) Left shoulder pain: With 9 to 10-month history of severe left shoulder/chest/axilla/neck pain radiating at times on the left arm with tingling in the left hand Occurred 2 months after a fall downstairs last February. Apparently she has had extensive work-up of this already of the shoulder at [facility] with MRI and orthopedics evaluation. She does not recall the final outcome, but thinks that she was told she had an infection in her shoulder. There is no evidence of infection here. ESR and CRP are essentially normal. There is no effusion, erythema, or other clinical signs of infection in the joint. Shoulder xray negative C-spine xray negative Appreciate orthopedic surgery consultation-need to request records from [place], would not want to inject steroids if has potential infection although this seems not likely-records were never received despite 2 requests during her stay -Physical therapy ordered-was given home exercises but refuses further outpt PT as reports this has made her feel worse in the past -pain now with improved control with oxycodone 10 mg p.o. every 4 hours as needed, discontinued IV Dilaudid as she needs a solution she can take home with her -Patient declines gabapentin for vomiting, Voltaren gel for ineffectiveness, and declines duloxetine, NSAIDs-reports ineffective -Follow up with Orthopedic SUrgery Dr. Patterson at [facility] after discharge -Consulted orthopedic spine surgeon to see if he thinks this is related to a cervical spine issue-they do not think this is cervical radiculopathy, but recommend outpt EMG LUE for suspected cubital and carpal tunnel syndrome -She apparently requires sedation for MRI-we will hold off on MRI cervical spine unless orthopedic spine surgeon thinks this is necessary as an outpatient -Continue Flexeril as needed -Continue nortriptyline 50 mg p.o. twice daily Pt can be discharged to home today I will give her a short term supply of oxycodone, but stressed the IMPORTANCE of close follow up with her PCP and Ortho rather than multiple return trips to ERs and hospitals (3) Chest pain: Reports 1 year of left-sided chest and shoulder pain which is tender to palpation and is musculoskeletal in nature as above Serial troponin negative here x3 Echocardiogram without wall motion abnormalities and with preserved EF further, her cardiac cath about 1 year ago showed, at most, 30% lesions (see full results in PMH section) no other acute findings on CTA chest (4) Palpitations: long-standing problem, but acutely worse over the last 3 days prior to admission secondary to benzodiazepine withdrawal Now resolved with restarting lorazepam that she had run out of 1 week prior Telemetry with sinus rhythm and sinus tachycardia Echocardiogram as above has been transferred off tele (5) Benzodiazepine withdrawal: Patient ran out of her longstanding Ativan 1 mg p.o. 3 times daily as she is in between PCPs and could not get an appointment soon enough As above, now tolerating p.o. and continues on home dose of Ativan 1 mg p.o. 3 times daily-recommended slow taper down off of this as an outpatient and replacement with a safer drug for anxiety (6) Hyponatremia: 2nd volume contraction as well as some pseudohyponatremia from hyperglycemia. Now resolved with hydration (7) Diabetes mellitus type 2, uncontrolled: 11.9% a1c in october. repeat a1c this admission slightly improved but remains elevated at 10.4% fortunately no DKA or HONK. Blood sugars now improved Increase Lantus to 48 units on discharge Needs improved control as an outpatient-she will follow-up with PCP. (8) Right second toe ulcer: received course of augmentin following her [facility] stay a few weeks ago. certainly she continues w/ ulcer but it does not have purulent drainage and does not currently appear infected has good pulses in right foot but may have microvascular disease from DM making wound healing problematic. follows with wound care center in [place]. (9) History of cardiac cath: nonobstructive disease found on cath 09/2019 - [facility] it is reassuring that despite 3 straight days of chest pains, palpitations, etc her troponins are negative and she has no ST changes Continue aspirin, atorvastatin, lisinopril (10) Hyperlipidemia: cont lipitor cont asa (11) Esophagitis: dx with such at [facility] ~ 3 weeks ago continue Protonix po bid cont carafate qid I requested records from [facility] to verify the EGD findings -never received (12) Gastroparesis: Suspected diagnosis during admission earlier this year she had rapid response to reglan at that time. Restarted Reglan here on scheduled basis she was set up to see Dr Gonzalez from GI post-discharge but did not show for that appointment. she is not sure if she has ever had a gastric emptying study. Follow-up as an outpatient for gastric emptying study if persists -Tolerating regular diet without any problems here now (13) Chronic back pain: receives prn narcotics from PCP for this saw Dr Veras in October of this year for various musculoskeletal complaints She was requiring IV Dilaudid here as well as IV Toradol-IV Dilaudid discontinued as above She will need to follow-up with PCP for this Continue nortriptyline 50 mg p.o. twice daily -She was also recently started on amitriptyline 25 at night-discontinued she also is on nortriptyline which she has been on for years Continue cyclobenzaprine (14) Nausea & vomiting: Secondary to benzodiazepine withdrawal as above Now improved with replacement of lorazepam as well as antiemetics Zofran and Phenergan with constipation likely opioid-induced--> started Miralax daily and had BM (15) DVT prophylaxis: Lovenox Disposition-dc to home Stressed importance of close f/u with PCP and Ortho Total Time Total Time Spent Total Time Spent (In Minutes): 35 min Total Time Includes: Examination of the Patient, Discharge Planning and Medication Reconciliation Discharge Plan Discharge Items Patient Disposition: Home - Self-Care Reason For Visit: PALPITATIONS,HYPONATREMIA,HYPERGLYCEMIA,CHEST PAIN Discharge Diagnosis: Dehydration, nausea/vomiting due to lorazepam withdrawal, Left shoulder pain Condition on Discharge: Good Activity: Resume your previous activity Non-emergency contact: Primary Care Provider and Surgeon Call non-emergency contact if: you have any medication questions, your symptoms worsen and your pain is not controlled Follow-up/Referrals: Kevin Patterson MD [Physician] - (Please follow up within 2 weeks for left shoulder pain.) Vince Vernon DO [Primary Care Provider] - 02/01/21 1:40 pm (Please follow up within 1 week after discharge.) Diet: Carb Consistent or DM2 Addtl Attending Provider Instructions: It is very important that you keep all follow up appointments with your PCP and Orthopedic Surgery to avoid you having to come back to the ER or hospital for withdrawal from ativan and for pain control for your chronic shoulder pain. Pending Studies at Discharge: Yes Stand-Alone Forms: My [employer], Opioid Pain Management, Smoking Cessation Medications and DC Order Prescriptions: New oxycodone 5 mg Tablet 5 - 10 mg PO Q8H PRN (Reason: severe pain) Qty: 42 RF: 0 Continued (DME) lancets [OneTouch UltraSoft Lancets] Misc See Rx Instructions .ROUTE .MEDSUPPLY Qty: 100 RF: 0 atorvastatin 40 mg tablet 40 mg PO PM RF: 0 lisinopril 10 mg tablet 10 mg PO DAILY RF: 0 ergocalciferol (vitamin D2) 1,250 mcg (50,000 unit) capsule 1,250 mcg PO WK RF: 0 ondansetron 4 mg tablet,disintegrating 4 mg PO TID PRN (Reason: Nausea And Vomiting) RF: 0 lorazepam [Ativan] 1 mg Tablet 1 mg PO TID Qty: 21 RF: 0 cyclobenzaprine 10 mg Tablet 10 mg PO BID RF: 0 sucralfate 1 gram Tablet 1 g PO ACHS RF: 0 aspirin 81 mg Tablet,Delayed Release (Dr/Ec) 81 mg PO DAILY RF: 0 ropinirole 2 mg Tablet 4 mg PO HS RF: 0 pantoprazole 40 mg Tablet,Delayed Release (Dr/Ec) 40 mg PO BID RF: 0 albuterol 90 mcg/actuation Aerosol 90 mcg INHALATION QID PRN (Reason: Shortness Of Breath Or Wheezing) RF: 0 zolpidem [Ambien] 10 mg Tablet 10 mg PO HS RF: 0 nortriptyline 50 mg Capsule 50 mg PO BID RF: 0 metoclopramide HCl 5 mg Tablet 5 mg PO AC Qty: 60 RF: 0 Changed Basaglar KwikPen U-100 Insulin 100 unit/mL (3 mL) Insulin Pen 48 unit SUBCUT HS Qty: 0 RF: 0 Discontinued amitriptyline 25 mg tablet 25 mg PO HS RF: 0 amoxicillin-pot clavulanate 875-125 mg tablet 1 tab PO BID RF: 0 diclofenac sodium [Voltaren] 1 % Gel 1 g TOPICAL BID PRN (Reason: Pain) RF: 0 Discharge Orders: Discharge Order (Routine); Ordered 01/28/21 Ordered By: Sangeeta Ko Admission Data Admit Date/Time: 01/24/21 13:01 Attending Provider: Sangeeta Ko Admit Provider: Silvestre Carvajal Primary Care Provider: Vince Vernon Other Providers: [facility],Home Healthcare ; Silvestre Carvajal ; Kevin Patterson ; Vince Morrow Coding Level of Care Code D/C Day Management >30 mins Diagnoses Tachycardia R00.0 Left shoulder pain M25.512 Chest pain R07.2 Chest pain type: precordial pain Palpitations R00.2 Benzodiazepine withdrawal F13.239 Hyponatremia E87.1 Diabetes mellitus type 2, uncontrolled E11.65 Right second toe ulcer L97.519 History of cardiac cath Z98.890 Hyperlipidemia E78.5 Esophagitis K20.90 Gastroparesis K31.84 Chronic back pain M54.9; G89.29 Nausea & vomiting R11.2 DVT prophylaxis Z29.9
[2021-01-28] MEDS: NORTRIPTYLINE HCL 25 MG CAP PO SCH (10:32)
[2021-01-28] MEDS ORDERED: INSULIN GLARGINE SOLOSTAR 100 UNITS/ML 3 ML PEN SC SCH (11:30)
[2021-01-29] MEDS ORDERED: INSULIN GLARGINE SOLOSTAR 100 UNITS/ML 3 ML PEN SC SCH (16:30)
== END 2021-01-28 10:55 | disposition home or self-care (01) | DRG 309 ==
LOC: ED 07:56 → SUATTDRO 13:01 → 2S 13:01 → 3W 01-26 11:07

== ENCOUNTER 2021-02-08 15:10 | Observation (INO) ==
--- NOTE | 2021-02-08 15:30 | Emergency Department Note ---
Impression & Plan Atypical chest pain, Acute hyperglycemia ED Provider Note NAME: EILEEN ESCOBAR AGE: 55 SEX: F : 1965 ARRIVES VIA: Walk-In INFORMANT: Patient, ED PROVIDER(S): Anish Lowery MD Chief Complaint: Chest pain, nausea vomiting HPI: Patient does present concern for chest pain with associated nausea vomiting has been ongoing for the last 48 to 72 hours. Patient does state that she has left-sided chest pain that she describes as sharp in nature and occasionally will radiate. The patient denies any exertional symptoms but has had nausea and vomiting. The patient did have a catheterization completed in 2019 at formerly [facility] which did not require stenting. The patient is a non-smoker. Patient denies any history of DVT or PE. The patient denies any recent travel or lower extremity swelling. The patient does have crampy discomfort in her extremities. Patient denies any fevers. The patient is not vaccinated for Covid. The patient is try to take some oxycodone for her pain but this has not improved it. Patient denies any dysuria or hematuria. Patient has had some looser stools. Patient was seen for toe infection approximate 3 weeks prior and has been doctoring with the wound care center for this. ROS: See HPI for pertinent positives and negatives. A total of 10 systems were reviewed and otherwise negative. Past medical history: See below Surgical history: See below Social history: See below Physical Exam: GENERAL: Well appearing, well nourished, NAD, non-toxic. EYE EXAM: Normal conjunctiva. PERRL, no anisocoria and EOM's grossly intact w/o pain. NECK: Supple, no nuchal rigidity, no adenopathy, non-tender. No signs of meningismus. LUNGS: Clear to auscultation. Normal chest wall mechanics. HEART: NSR, no MRG. ABDOMEN: Abdomen soft, non-tender, normo-active bowel sounds, no masses, no rebound or guarding. BACK: No CVA TTP. SKIN: No rashes and no bruising. UPPER EXTREMITIES: Upper extremities are grossly normal. LOWER EXTREMITIES: Grossly normal, no edema. Negative Homans' sign bilaterally. Mild redness and excoriation to the DP of the right second phalanx, no crepitus or drainage. NEURO EXAM: A&O x3, cranial nerves II-XII grossly intact, normal speech, moves all 4 extremities on command w/o issue. Differential diagnoses: Cardiac ischemia, aortic dissection, pulmonary embolism, pneumothorax, pneumonia, pericarditis, myocarditis, esophageal rupture, GERD, cholecystitis, pancreatitis, musculoskeletal, as well as other pathologies. Course: Patient was seen and evaluated the bedside. Full history physical exam was performed. EKG interpreted by me Sinus tachycardia, rate of 110, normal intervals, normal axis, slight elevation inferiorly. No significant change from comparison EKG January 25, 2021 Imaging Studies: See below Cardiac monitoring: An order was placed for continuous cardiac monitoring. The monitor shows a rate of 98 with sinus rhythm. MDM: Patient did present with concern for nausea vomiting chest pain. Blood work obtained along with an EKG troponin chest x-ray. Patient was treated symptomatically. Patient was treated several times due to her pain. Patient is awake and 16 with normal H&H platelet count. Kidney function is unremarkable. Patient's glucose is elevated. Troponin not detectable. Covid negative. Chest x-ray clear. Did repeat a troponin the patient did have an angiography of the chest which is unremarkable. I did speak with the on-call hospitalist given the patient's intractable pain and the patient does have risk factors concerning for possible ACS even in light of the patient's recent admission. Patient was admitted by Dr. Brown. Past Med/Surg History Medical History (Updated 02/09/21 @ 13:33 by Anish Lowery MD) Chronic back pain Depression DM2 (diabetes mellitus, type 2) Gastritis GIB (gastrointestinal bleeding) Hyperlipidemia Insulin dependent diabetes mellitus Nonobstructive atherosclerosis of coronary artery Peripheral neuropathy Seizures Surgical History History of cardiac cath done at [facility]; 09/22/19; LM - mild luminal irregularities. LAD - mid 20-30%, distal with myocardial bridge & 30% stenosis. L Cx - mild luminal irregularities. RCA - proximal <30% stenosis; mid/distal vessel mild plaques. PDA - mild luminal irregularities. 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; 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 How many Children do You have: 3 other: raising a grandchild as well; lives in [place] Feels Safe at Home: Yes Safety Concerns: Feels Safe At This Time Assistive Devices: Glasses Allergies Allergies Allergy/AdvReac Type Severity Reaction Status Date / Time morphine Allergy Severe blisters Verified 02/08/21 18:00 in mouth Sulfa (Sulfonamide Allergy Severe rash/swelli Verified 02/08/21 18:00 Antibiotics) Home Meds Home Medications Medication Instructions Recorded Confirmed albuterol 90 mcg INHALATION QID PRN 10/19/20 02/08/21 aspirin 81 mg PO DAILY 10/19/20 02/08/21 cyclobenzaprine 10 mg PO BID 10/19/20 02/08/21 nortriptyline 50 mg PO BID 10/19/20 02/08/21 pantoprazole 40 mg PO BID 10/19/20 02/08/21 ropinirole 4 mg PO HS 10/19/20 02/08/21 sucralfate 1 g PO ACHS 10/19/20 02/08/21 zolpidem [Ambien] 10 mg PO HS 10/19/20 02/08/21 lancets #100 ea 11/12/20 11/12/20 atorvastatin 40 mg PO PM 01/24/21 02/08/21 lisinopril 10 mg PO DAILY 01/24/21 02/08/21 ondansetron 4 mg PO TID PRN 01/24/21 02/08/21 Previous Rx's Medication Instructions Recorded metoclopramide HCl 5 mg PO AC #60 tab 10/21/20 Basaglar KwikPen U-100 Insulin 48 unit SUBCUT HS #0 ml 01/28/21 lorazepam [Ativan] 1 mg PO TID #21 tab 01/28/21 oxycodone 5 - 10 mg PO Q8H PRN #42 tab 01/28/21 Results & Data (ED) Vital Signs Vital Signs - 24 hr 02/08/21 15:14 02/08/21 16:08 02/08/21 17:40 Temperature 36.4 C L Temperature Source Temporal Artery Scan Pulse Rate 110 H Pulse Rate [Right Finger] 100 H Pulse Rate from SpO2 Sensor 88 Respiratory Rate 20 19 Respiratory Effort / Characteristics Non-Labored Respiratory Depth Normal Respiratory Pattern Regular Blood Pressure 164/88 H 170/99 H Blood Pressure [Right Arm] 171/97 H Blood Pressure Mean 113 122 Blood Pressure Mean [Right Arm] 121 Blood Pressure Position Sitting Pulse Oximetry 97 98 99 Oxygen Delivery Method Room Air Room Air Sepsis Recent Fever Within 48 Hours No Sepsis New/Unexplained Change in Mental Status No Sepsis Action Taken by Nursing No Action Required 02/08/21 18:10 02/08/21 18:38 02/08/21 18:40 Temperature Temperature Source Pulse Rate 87 90 Pulse Rate [Right Finger] Pulse Rate from SpO2 Sensor 86 92 H 90 Respiratory Rate 15 12 Respiratory Effort / Characteristics Respiratory Depth Respiratory Pattern Blood Pressure 197/112 H Blood Pressure [Right Arm] Blood Pressure Mean 140 Blood Pressure Mean [Right Arm] Blood Pressure Position Pulse Oximetry 97 96 97 Oxygen Delivery Method Sepsis Recent Fever Within 48 Hours Sepsis New/Unexplained Change in Mental Status Sepsis Action Taken by Nursing 02/08/21 18:45 02/08/21 19:00 02/08/21 19:30 Temperature Temperature Source Pulse Rate 91 H 85 Pulse Rate [Right Finger] 87 Pulse Rate from SpO2 Sensor 91 H 85 Respiratory Rate 16 24 17 Respiratory Effort / Characteristics Non-Labored Respiratory Depth Normal Respiratory Pattern Blood Pressure 194/113 H 186/109 H Blood Pressure [Right Arm] 197/112 H Blood Pressure Mean 140 134 Blood Pressure Mean [Right Arm] 140 Blood Pressure Position Pulse Oximetry 97 98 97 Oxygen Delivery Method Room Air Sepsis Recent Fever Within 48 Hours Sepsis New/Unexplained Change in Mental Status Sepsis Action Taken by Nursing 02/08/21 19:42 02/08/21 20:00 02/08/21 20:30 Temperature Temperature Source Pulse Rate 87 78 85 Pulse Rate [Right Finger] Pulse Rate from SpO2 Sensor 87 78 84 Respiratory Rate 14 19 23 Respiratory Effort / Characteristics Respiratory Depth Respiratory Pattern Blood Pressure 180/98 H 149/81 H Blood Pressure [Right Arm] Blood Pressure Mean 125 103 Blood Pressure Mean [Right Arm] Blood Pressure Position Pulse Oximetry 99 96 99 Oxygen Delivery Method Sepsis Recent Fever Within 48 Hours Sepsis New/Unexplained Change in Mental Status Sepsis Action Taken by Nursing 02/08/21 20:31 02/08/21 20:35 02/08/21 20:36 Temperature Temperature Source Pulse Rate 92 H 89 Pulse Rate [Right Finger] 87 Pulse Rate from SpO2 Sensor 92 H 88 Respiratory Rate 23 19 33 H Respiratory Effort / Characteristics Respiratory Depth Respiratory Pattern Blood Pressure 149/114 H 183/114 H Blood Pressure [Right Arm] 183/114 H Blood Pressure Mean 125 137 Blood Pressure Mean [Right Arm] 137 Blood Pressure Position Pulse Oximetry 99 100 100 Oxygen Delivery Method Sepsis Recent Fever Within 48 Hours Sepsis New/Unexplained Change in Mental Status Sepsis Action Taken by Nursing 02/08/21 21:00 02/08/21 21:30 02/08/21 21:59 Temperature Temperature Source Pulse Rate 80 79 Pulse Rate [Right Finger] Pulse Rate from SpO2 Sensor 80 79 Respiratory Rate 17 14 Respiratory Effort / Characteristics Non-Labored Spontaneous Respiratory Depth Normal Respiratory Pattern Regular Blood Pressure 166/104 H 165/95 H Blood Pressure [Right Arm] Blood Pressure Mean 124 118 Blood Pressure Mean [Right Arm] Blood Pressure Position Pulse Oximetry 98 96 Oxygen Delivery Method Sepsis Recent Fever Within 48 Hours Sepsis New/Unexplained Change in Mental Status Sepsis Action Taken by Nursing 02/08/21 22:00 02/08/21 23:11 02/08/21 23:30 Temperature Temperature Source Pulse Rate 158 H 90 90 Pulse Rate [Right Finger] Pulse Rate from SpO2 Sensor 91 H 89 90 Respiratory Rate 23 16 24 Respiratory Effort / Characteristics Respiratory Depth Respiratory Pattern Blood Pressure 170/103 H 188/99 H 184/98 H Blood Pressure [Right Arm] Blood Pressure Mean 125 128 126 Blood Pressure Mean [Right Arm] Blood Pressure Position Pulse Oximetry 98 99 98 Oxygen Delivery Method Room Air Room Air Room Air Sepsis Recent Fever Within 48 Hours Sepsis New/Unexplained Change in Mental Status Sepsis Action Taken by Retirement Medications Current Medication List: was personally reviewed by me Laboratory Data Attestation: I reviewed the patient's lab results. Result diagrams: 02/08/21 15:28 02/08/21 15:28 Lab Results 02/08/21 02/08/21 02/08/21 Range/Units 15:28 15:28 15:28 WBC 15.98 H (4.8-10.8) K/uL RBC 4.90 (4.2-5.4) M/uL Hgb 13.8 (12.0-16.0) g/dL Hct 40.4 (37-47) % MCV 82.4 (80-100) fL MCH 28.2 (25-34) pg MCHC 34.2 (32-36) g/dL RDW Std Deviation 39.2 (36.4-46.3) fL RDW Coeff of Maria Del Carmen 13.1 (11.5-14.5) % Plt Count 337 (130-400) K/uL MPV 9.9 (7.4-10.4) fL Immature Gran % (Auto) 0.3 % Neut % (Auto) 69.8 % Lymph % (Auto) 21.2 % Mcnairy % (Auto) 6.0 % Eos % (Auto) 2.4 % Baso % (Auto) 0.3 % Neut # (Auto) 11.15 H (1.4-6.5) K/uL Lymph # (Auto) 3.39 (1.2-3.4) K/uL Mcnairy # (Auto) 0.96 H (0.11-0.59) K/uL Eos # (Auto) 0.39 (0-0.5) K/uL Baso # (Auto) 0.04 (0-0.2) K/uL Immature Gran # (Auto) 0.05 H (0.00-0.02) K/uL APTT 21.2 (21.0-31.0) Seconds PTT Ratio 0.8 Sodium 133 L (136-145) mmol/L Potassium 4.0 (3.5-5.1) mmol/L Chloride 100 (98-107) mmol/L Carbon Dioxide 28 (21-32) mmol/L Anion Gap 5.0 (3-11) BUN 15 (7-18) mg/dl Creatinine 0.61 (0.6-1.2) mg/dl Est Cr Clr Drug Dosing 95.6 ml/min Est GFR ( Amer) 117.5 ml/min Est GFR (Non-Af Amer) 101.3 ml/min BUN/Creatinine Ratio 24.0 H (10-20) Glucose 282 H (70-99) mg/dl Calcium 9.5 (8.5-10.1) mg/dl Total Bilirubin 0.3 (0.2-1) mg/dl AST 7 L (15-37) U/L ALT 29 (12-78) U/L Alkaline Phosphatase 113 (45-117) U/L Troponin I < 0.015 (0-0.045) ng/ml Total Protein 8.0 (6.4-8.2) gm/dl Albumin 4.1 (3.4-5.0) gm/dl Globulin 3.9 (2.5-4.0) gm/dl Albumin/Globulin Ratio 1.1 (0.9-2) Lipase 101 (73-393) U/L COVID-19 Eval Order SARS-CoV-2 (PCR) (Negative) 02/08/21 02/08/21 02/08/21 Range/Units 17:50 17:50 19:04 WBC (4.8-10.8) K/uL RBC (4.2-5.4) M/uL Hgb (12.0-16.0) g/dL Hct (37-47) % MCV (80-100) fL MCH (25-34) pg MCHC (32-36) g/dL RDW Std Deviation (36.4-46.3) fL RDW Coeff of Maria Del Carmen (11.5-14.5) % Plt Count (130-400) K/uL MPV (7.4-10.4) fL Immature Gran % (Auto) % Neut % (Auto) % Lymph % (Auto) % Mcnairy % (Auto) % Eos % (Auto) % Baso % (Auto) % Neut # (Auto) (1.4-6.5) K/uL Lymph # (Auto) (1.2-3.4) K/uL Mcnairy # (Auto) (0.11-0.59) K/uL Eos # (Auto) (0-0.5) K/uL Baso # (Auto) (0-0.2) K/uL Immature Gran # (Auto) (0.00-0.02) K/uL APTT (21.0-31.0) Seconds PTT Ratio Sodium (136-145) mmol/L Potassium (3.5-5.1) mmol/L Chloride (98-107) mmol/L Carbon Dioxide (21-32) mmol/L Anion Gap (3-11) BUN (7-18) mg/dl Creatinine (0.6-1.2) mg/dl Est Cr Clr Drug Dosing ml/min Est GFR ( Amer) ml/min Est GFR (Non-Af Amer) ml/min BUN/Creatinine Ratio (10-20) Glucose (70-99) mg/dl Calcium (8.5-10.1) mg/dl Total Bilirubin (0.2-1) mg/dl AST (15-37) U/L ALT (12-78) U/L Alkaline Phosphatase (45-117) U/L Troponin I < 0.015 (0-0.045) ng/ml Total Protein (6.4-8.2) gm/dl Albumin (3.4-5.0) gm/dl Globulin (2.5-4.0) gm/dl Albumin/Globulin Ratio (0.9-2) Lipase (73-393) U/L COVID-19 Eval Order Covid19 at [facility] SARS-CoV-2 (PCR) NEGATIVE (Negative) Administered Medications Acetaminophen (Acetaminophen 325 Mg Tab) 650 mg PO Q4H PRN PRN Reason: Pain or Fever Stop: 03/11/21 00:48 Last Admin: 02/09/21 12:09 Dose: 650 mg Documented by: [id number] Aspirin (Aspirin 81 Mg Ectab) 81 mg PO DAILY [facility] Stop: 03/11/21 08:59 Last Admin: 02/09/21 08:50 Dose: 81 mg Documented by: [id number] Cyclobenzaprine HCl (Cyclobenzaprine Hcl 10 Mg Tab) 10 mg PO BID [facility] Stop: 03/11/21 01:08 Last Admin: 02/09/21 08:58 Dose: 10 mg Documented by: [id number] Admin: 02/09/21 01:37 Dose: 10 mg Documented by: [id number] Insulin Aspart (Insulin Aspart 100 Units/Ml 3 Ml Pen) 0 units SC ACHS [facility] Stop: 03/11/21 01:29 Last Admin: 02/09/21 12:27 Dose: 5 units Documented by: [id number] Cosigned by: [id number] Admin: 02/09/21 08:47 Dose: 6 units Documented by: [id number] Cosigned by: [id number] Admin: 02/09/21 01:38 Dose: 1 units Documented by: [id number] Cosigned by: [id number] Ketorolac Tromethamine (Ketorolac Tromethamine 15 Mg/Ml Vial) 15 mg IV Q6H PRN PRN Reason: Pain Stop: 02/14/21 01:57 Last Admin: 02/09/21 05:39 Dose: 15 mg Documented by: [id number] Lisinopril (Lisinopril 10 Mg Tab) 10 mg PO DAILY RICKY Stop: 03/11/21 08:59 Last Admin: 02/09/21 08:51 Dose: 10 mg Documented by: [id number] Lorazepam (Lorazepam 1 Mg Tab) 1 mg PO TID RICKY Stop: 03/11/21 08:59 Last Admin: 02/09/21 08:48 Dose: 1 mg Documented by: [id number] Lorazepam (Lorazepam 1 Mg Tab) 1 mg PO TID PRN PRN Reason: Anxiety Stop: 03/11/21 01:56 Last Admin: 02/09/21 02:30 Dose: 1 mg Documented by: [id number] Metoclopramide HCl (Metoclopramide Hcl 5 Mg Tablet) 5 mg PO AC RICKY Stop: 03/11/21 07:29 Last Admin: 02/09/21 12:10 Dose: 5 mg Documented by: [id number] Admin: 02/09/21 08:49 Dose: 5 mg Documented by: [id number] Metoprolol Succinate (Metoprolol Succ 50mg Ext Rel Tab) 100 mg PO QAM RICKY Stop: 03/11/21 10:29 Last Admin: 02/09/21 12:10 Dose: 100 mg Documented by: [id number] Miscellaneous (Remove Lidoderm Patch) 1 ea N/A DAILY RICKY Stop: 03/11/21 08:59 Last Admin: 02/09/21 08:58 Dose: 1 ea Documented by: [id number] Nortriptyline HCl (Nortriptyline Hcl 25 Mg Cap) 50 mg PO BID RICKY Stop: 03/11/21 00:48 Last Admin: 02/09/21 08:49 Dose: 50 mg Documented by: [id number] Admin: 02/09/21 01:37 Dose: 50 mg Documented by: [id number] Ondansetron HCl (Ondansetron 4 Mg Od Tab) 4 mg PO TID PRN PRN Reason: Nausea And Vomiting Stop: 03/11/21 01:10 Last Admin: 02/09/21 03:47 Dose: 4 mg Documented by: [id number] Pantoprazole Sodium (Pantoprazole 40 Mg Tab) 40 mg PO BID [facility] Stop: 03/11/21 00:48 Last Admin: 02/09/21 08:50 Dose: 40 mg Documented by: [id number] Admin: 02/09/21 01:37 Dose: 40 mg Documented by: [id number] Sucralfate (Sucralfate 1 Gm Tab) 1 gm PO ACHS RICKY Stop: 03/11/21 07:29 Last Admin: 02/09/21 13:13 Dose: Not Given Documented by: [id number] Admin: 02/09/21 08:50 Dose: 1 gm Documented by: [id number] Discontinued Medications Fentanyl Citrate (Fentanyl Citrate 100 Mcg/2 Ml Vial) 50 mcg IV NOW STA Stop: 02/08/21 15:58 Last Admin: 02/08/21 16:07 Dose: 50 mcg Documented by: [id number] Fentanyl Citrate (Fentanyl Citrate 100 Mcg/2 Ml Vial) 50 mcg IV NOW STA Stop: 02/08/21 17:18 Last Admin: 02/08/21 17:53 Dose: 50 mcg Documented by: [id number] Fentanyl Citrate (Fentanyl Citrate 100 Mcg/2 Ml Vial) 50 mcg IV NOW STA Stop: 02/08/21 22:29 Last Admin: 02/08/21 23:10 Dose: 50 mcg Documented by: [id number] Hydromorphone HCl (Hydromorphone Inj 0.5 Mg/0.5 Ml Syr) 0.5 mg IV NOW STA Stop: 02/08/21 20:26 Last Admin: 02/08/21 20:33 Dose: 0.5 mg Documented by: [id number] Hydromorphone HCl (Hydromorphone Inj 0.5 Mg/0.5 Ml Syr) Confirm Administered Dose 0.5 mg .ROUTE .STK-MED ONE Stop: 02/09/21 02:29 Last Admin: 02/09/21 03:12 Dose: Not Given Documented by: [id number] Hydromorphone HCl (Hydromorphone Inj 0.5 Mg/0.5 Ml Syr) 0.5 mg IV ONE ONE Stop: 02/09/21 02:26 Last Admin: 02/09/21 02:30 Dose: 0.5 mg Documented by: [id number] Sodium Chloride (Nss 1000ml) 1,000 mls @ 999 mls/hr IV .Q1H1M STA Stop: 02/08/21 16:57 Last Infusion: 02/08/21 17:11 Dose: 0 mls/hr Documented by: [id number] Admin: 02/08/21 16:08 Dose: 999 mls/hr Documented by: [id number] Sodium Chloride (Nss 1000ml) 1,000 mls @ 999 mls/hr IV .Q1H1M ONE Stop: 02/08/21 18:18 Last Infusion: 02/08/21 18:57 Dose: 0 mls/hr Documented by: [id number] Admin: 02/08/21 17:53 Dose: 999 mls/hr Documented by: [id number] Ioversol (Optiray 320 125ml) 120 ml IV ONCE ONE Stop: 02/08/21 18:04 Last Admin: 02/08/21 18:03 Dose: 120 ml Documented by: [id number] Ketorolac Tromethamine (Ketorolac Tromethamine 15 Mg/Ml Vial) 15 mg IV NOW STA Stop: 02/08/21 19:06 Last Admin: 02/08/21 19:14 Dose: 15 mg Documented by: [id number] Lidocaine (Lidocaine 5% 1 Patch) 1 patch TD NOW STA Stop: 02/08/21 19:06 Last Admin: 02/08/21 19:12 Dose: 1 patch Documented by: [id number] Miscellaneous (Remove Lidoderm Patch) 1 ea N/A DAILY@2100 RICKY Stop: 03/10/21 20:59 Last Admin: 02/09/21 00:51 Dose: 1 ea Documented by: [id number] Ondansetron HCl (Ondansetron Inj 2 Mg/Ml 2 Ml Vial) 4 mg IV NOW STA Stop: 02/08/21 15:58 Last Admin: 02/08/21 16:08 Dose: 4 mg Documented by: [id number] Oxycodone HCl (Oxycodone Hcl Ir 5 Mg Tab (Immediate Release)) 5 mg PO Q6H PRN PRN Reason: severe pain Stop: 02/23/21 00:48 Last Admin: 02/09/21 08:47 Dose: 5 mg Documented by: [id number] Admin: 02/09/21 01:39 Dose: 5 mg Documented by: [id number] Oxycodone HCl (Oxycodone Hcl Ir 5 Mg Tab (Immediate Release)) 10 mg PO NOW STA Stop: 02/09/21 10:12 Last Admin: 02/09/21 10:59 Dose: 10 mg Documented by: [id number] Discharge Plan Visit Data Chief Complaint: Chest Pain Stated Complaint: VOMITING,CHEST PAIN,LT ARM NUMB,SOB ED Provider: Anish Lowery Discharge Problem: Atypical chest pain, Acute hyperglycemia Patient Disposition: Admitted As Inpatient Discharge Instructions Interventions: ED Discharge Assessment Last Done: 02/09/21 00:56
[2021-02-08] MEDS ORDERED: fentaNYL citrate 100 MCG/2 ML VIAL IV STA ×3 (15:57→22:28)
[2021-02-08] MEDS ORDERED: ONDANSETRON INJ 2 MG/ML 2 ML VIAL IV STA (15:57)
[2021-02-08] MEDS ORDERED: SODIUM CHLORIDE 0.9% 1000ML 1,000 ML IV STA (15:57)
[2021-02-08 16:16] LABS: Basophils # (auto) 0.04 K/uL (0-0.2); Basophils % (auto) 0.3 %; Eosinophils # (auto) 0.39 K/uL (0-0.5); Eosinophils % (auto) 2.4 %; Hematocrit (blood only) 40.4 % (37-47); Hemoglobin 13.8 g/dL (12.0-16.0); Immature Granulocytes # (auto) 0.05 K/uL (0.00-0.02); Immature Granulocytes % (auto) 0.3 %; Lymphocytes # (auto) 3.39 K/uL (1.2-3.4); Lymphocytes % (auto) 21.2 %; Mean Corpuscular Hemoglobin 28.2 pg (25-34); Mean Corpuscular Hgb Conc 34.2 g/dL (32-36); Mean Corpuscular Volume 82.4 fL (80-100); Mean Platelet Volume 9.9 fL (7.4-10.4); Monocytes # (auto) 0.96 K/uL (0.11-0.59); Neutrophils # (auto) 11.15 K/uL (1.4-6.5); Neutrophils % (auto) 69.8 %; Platelet Count 337 K/uL (130-400); RDW Coefficient of Variation 13.1 % (11.5-14.5); RDW Standard Deviation 39.2 fL (36.4-46.3); White Blood Count 15.98 K/uL (4.8-10.8)
[2021-02-08 16:25] LABS: Alanine Aminotransferase 29 U/L (12-78); Albumin Level 4.1 gm/dl (3.4-5.0); Aspartate Aminotransferase 7 U/L (15-37); Blood Urea Nitrogen 15 mg/dl (7-18); Calcium 9.5 mg/dl (8.5-10.1); Carbon Dioxide 28 mmol/L (21-32); Chloride 100 mmol/L (98-107); Creatinine Clr Calc Pharmacy 95.6 ml/min; Est GFR (African American) 117.5 ml/min; Est GFR (Non-African American) 101.3 ml/min; Glucose 282 mg/dl (70-99); Lipase 101 U/L (73-393); Sodium 133 mmol/L (136-145)
[2021-02-08 16:29] LABS: Albumin Globulin Ratio 1.1 (0.9-2); Alkaline Phosphatase 113 U/L (45-117); Bilirubin,Total 0.3 mg/dl (0.2-1); Globulin 3.9 gm/dl (2.5-4.0); Troponin I < 0.015 ng/ml (0-0.045)
[2021-02-08 16:31] LABS: Partial Thromboplastin Ratio 0.8; Partial Thromboplastin Time 21.2 Seconds (21.0-31.0)
--- NOTE | 2021-02-08 16:50 | XRay Report ---
XR chest 1V portable CLINICAL HISTORY: Atypical chest pain COMPARISON STUDY: 01/24/2021 FINDINGS: The cardiac and mediastinal contours are normal. There is no evidence of focal pulmonary co nsolidation. There is no evidence of failure. No pleural effusions are visualized.[ IMPRESSION: No active disease in the chest. ACT 112: Negative or not required by law. Electronically signed by: Jorgito Govea M.D. 02/08/2021 4:48 PM
[2021-02-08] MEDS ORDERED: SODIUM CHLORIDE 0.9% 1000ML 1,000 ML IV ONE (17:18)
[2021-02-08] MEDS ORDERED: OPTIRAY 320 125ml IV ONE (18:03)
--- NOTE | 2021-02-08 18:26 | CT Scan Report ---
CT ANGIOGRAM OF THE CHEST CLINICAL HISTORY: Chest pain, tachycardia, possible acute pulmonary embolism COMPARISON STUDY: 01/24/2021 TECHNIQUE: Following the IV administration of 120 mL of Optiray, CT angiogram of the thorax was perfo rmed from the thoracic inlet to the lung bases utilizing the pulmonary embolus protocol. Images are r eviewed in the axial, sagittal, and coronal planes. IV contrast was administered without complication . MIP imaging was performed. A dose lowering technique was utilized adhering to the principles of [place]. CT DOSE: 411.04 mGy.cm FINDINGS: No pathologically enlarged axillary mediastinal or hilar lymph nodes were visualized. There was no evidence of thoracic aortic dilatation. There were no pulmonary artery filling defects to indicate acute pulmonary embolism. No pleural effusions are visualized. There are mild dependent atelectatic changes. There is mild pulmonary emphysema. There is no pneumoth orax. There is a calcified right upper lobe granuloma. IMPRESSION: 1. No acute intrathoracic findings 2. No evidence of acute pulmonary embolism 3. No evidence of focal pulmonary consolidation 4. Pulmonary emphysema ACT 112: Negative or not required by law. Electronically signed by: Jorgito Govea M.D. 02/08/2021 6:25 PM
[2021-02-08] MEDS ORDERED: LIDOCAINE 5% 1 PATCH TD STA (19:05)
[2021-02-08] MEDS ORDERED: KETOROLAC TROMETHAMINE 15 MG/ML VIAL IV STA (19:05)
[2021-02-08] MEDS ORDERED: HYDROmorphone INJ 0.5 MG/0.5 ML SYR IV STA (20:25)
--- NOTE | 2021-02-08 23:42 | History & Physical Report ---
Date of Service February 08, 2021 Assessment & Plan (1) Left-sided chest pain: Left-sided chest pain/left shoulder pain/left arm pain/history of injury of left rotator cuff- Patient has significant cardiac work-up, that makes the symptoms unlikely to be related to heart issues Admits to medical telemetry for rule out MN purposes, and I would look into orthopedic causes. She has significant issues with generalized fatigue and myalgias as well, may have a case of polymyalgia rheumatica, that could potentially deserve a trial of steroids. Once cardiac assessment is done, consult PT/OT Present on Admission?: Yes (2) Injury of left rotator cuff: See above Present on Admission?: Yes (3) Left shoulder pain: See above Present on Admission?: Yes (4) Right second toe ulcer: Has been following with wound care, consult wound care for inpatient. Present on Admission?: Yes (5) Diabetes mellitus type 2, uncontrolled: Continue Basaglar insulin Placed on Accu-Cheks before meals and at bedtime with NovoLog coverage per scale Present on Admission?: Yes (6) History of cardiac cath: Noted Present on Admission?: Yes (7) Hyperlipidemia: Continue atorvastatin 40 mg daily Present on Admission?: Yes (8) Esophagitis: Continue pantoprazole 40 mg p.o. twice daily Present on Admission?: Yes (9) Gastroparesis: Continue Reglan/metoclopramide Present on Admission?: Yes (10) Peripheral neuropathy: Continue ropinirole, nortriptyline, cyclobenzaprine. Present on Admission?: Yes History of Present Illness Chief Complaint: The patient presents to the emergency department with symptoms of left-sided chest pain, left shoulder pain and pain down left arm, similar to most recent hospitalization from 01/24-01/28 Primary Care Provider: Vince Vernon, DO The patient is a 55-year-old female with a past medical history including nonobstructive CAD, tobacco use, chronic back pain, right second toe ulcer, diabetes mellitus 2 uncontrolled, hyperlipidemia, esophagitis, vitamin D deficiency, gastroparesis, peripheral neuropathy, left rotator cuff injury and scapular dyskinesis. Patient presents with symptoms very similar to her previous hospitalization from 01/24-01/28. These consist of left-sided pain, left shoulder pain and pain down the left arm. She did have a cardiac catheterization in 2019, which did not find any significant disease, and had a negative stress test done about 4 weeks ago. She did a laceration of her tachycardia, which was thought secondary to benzodiazepine withdrawal, which was managed with reinstitution of her previous Ativan dosing. Allergies Allergy/AdvReac Type Severity Reaction Status Date / Time morphine Allergy Severe blisters Verified 02/08/21 18:00 in mouth Sulfa (Sulfonamide Allergy Severe rash/swelli Verified 02/08/21 18:00 Antibiotics) ng Home Medications Medication Instructions Recorded Confirmed Type albuterol 90 mcg INHALATION QID PRN 10/19/20 02/08/21 History aspirin 81 mg PO DAILY 10/19/20 02/08/21 History cyclobenzaprine 10 mg PO BID 10/19/20 02/08/21 History nortriptyline 50 mg PO BID 10/19/20 02/08/21 History pantoprazole 40 mg PO BID 10/19/20 02/08/21 History ropinirole 4 mg PO HS 10/19/20 02/08/21 History sucralfate 1 g PO ACHS 10/19/20 02/08/21 History zolpidem [Ambien] 10 mg PO HS 10/19/20 02/08/21 History metoclopramide HCl 5 mg PO AC #60 tab 10/21/20 02/08/21 Rx lancets #100 ea 11/12/20 11/12/20 History atorvastatin 40 mg PO PM 01/24/21 02/08/21 History lisinopril 10 mg PO DAILY 01/24/21 02/08/21 History ondansetron 4 mg PO TID PRN 01/24/21 02/08/21 History Basaglar KwikPen U-100 Insulin 48 unit SUBCUT HS #0 ml 01/28/21 02/08/21 Rx lorazepam [Ativan] 1 mg PO TID #21 tab 01/28/21 02/08/21 Rx oxycodone 5 - 10 mg PO Q8H PRN #42 tab 01/28/21 02/08/21 Rx Past Med/Surg History Medical History Chronic back pain Depression DM2 (diabetes mellitus, type 2) Gastritis GIB (gastrointestinal bleeding) Hyperlipidemia Insulin dependent diabetes mellitus Nonobstructive atherosclerosis of coronary artery Seizures Surgical History History of cardiac cath done at [facility]; 09/22/19; LM - mild luminal irregularities. LAD - mid 20-30%, distal with myocardial bridge & 30% stenosis. L Cx - mild luminal irregularities. RCA - proximal <30% stenosis; mid/distal vessel mild plaques. PDA - mild luminal irregularities. 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; 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 How many Children do You have: 3 other: raising a grandchild as well; lives in [place] Feels Safe at Home: Yes Safety Concerns: Feels Safe At This Time Assistive Devices: Glasses Review of Systems Review of Systems: The patient denies palpitations, shortness of breath, dyspnea on exertion, cough, lower extremity swelling, sore throat, fevers, chills, sweats, nausea, vomiting, diarrhea , constipation, abdominal pain, pelvic pain, blood in urine or stool, dysuria, urinary frequency or urgency, lightheadedness, dizziness, headache, memory loss, loss of consciousness, rash, abnormal bruising or bleeding, imbalance, focal or generalized weakness, numbness or tingling in legs, or night sweats. The review of systems is otherwise negative other than for that already noted above, and at least 10 systems have been reviewed. Physical Exam Physical Exam: The patient is awake, alert and oriented 3, well developed and well nourished, normocephalic and atraumatic, lying in bed and in no acute distress. HEENT--PERRL, EOMI, mucous membranes and oropharynx normal. Neck--supple. No JVD. No bruits. Thyroid normal, trachea midline, no adenopathy. Heart--normal S1 and S2. No murmurs, rubs or gallops. Lungs--clear bilaterally, no respiratory distress, no accessory muscle use. Abdomen--normal bowel sounds and soft. Nontender. Nondistended, no hernias or masses, no organomegaly. Extremities--no cyanosis or clubbing. No edema. There are good distal pulses b/l. Dermatologic--normal skin turgor, normal color, no abnormal lymph nodes, no rash. Neurologic--cranial nerves II through XII grossly intact. Rheumatologic--decreased range of motion left upper extremity due to pain Psychiatric--normal affect. Results & Data Results & Data ([facility]) Vital Signs (Past 12 Hours) Vital Signs Temp Pulse Pulse Resp BP BP Pulse Ox 02/08/21 21:30 79 14 165/95 H 96 02/08/21 21:00 80 17 166/104 H 98 02/08/21 20:36 89 33 H 183/114 H 100 02/08/21 20:35 87 19 183/114 H 100 02/08/21 20:31 92 H 23 149/114 H 99 02/08/21 20:30 85 23 99 02/08/21 20:00 78 19 149/81 H 96 02/08/21 19:42 87 14 180/98 H 99 02/08/21 19:30 85 17 186/109 H 97 02/08/21 19:00 91 H 24 194/113 H 98 02/08/21 18:45 87 16 197/112 H 97 02/08/21 18:40 90 12 197/112 H 97 02/08/21 18:38 96 02/08/21 18:10 87 15 97 02/08/21 17:40 170/99 H 99 02/08/21 16:08 100 H 19 171/97 H 98 02/08/21 15:14 97.5 F L 110 H 20 164/88 H 97 Laboratory Results Laboratory Results WBC 15.98 K/uL (4.8-10.8) H 02/08/21 15:28 RBC 4.90 M/uL (4.2-5.4) 02/08/21 15: Hgb 13.8 g/dL (12.0-16.0) 02/08/21 15: Hct 40.4 % (37-47) 02/08/21 15: MCV 82.4 fL (80-100) 02/08/21 15:28 MCH 28.2 pg (25-34) 02/08/21 15: MCHC 34.2 g/dL (32-36) 02/08/21 15: RDW Std Deviation 39.2 fL (36.4-46.3) 02/08/21 15: RDW Coeff of Maria [place] Carmen 13.1 % (11.5-14.5) 02/08/21: Plt Count 337 K/uL (130-400) 02/08/21 15: MPV 9.9 fL (7.4-10.4) 02/08/21 15: Immature Gran % (Auto) 0.3 % 02/08/21 15: Neut % (Auto) 69.8 % 02/08/21 15:28 Lymph % (Auto) 21.2 % 02/08/21 15:28 [place] % (Auto) 6.0 % 02/08/21 15:28 Eos % (Auto) 2.4 % 02/08/21 15: Baso % (Auto) 0.3 % 02/08/21 15:28 Neut # (Auto) 11.15 K/uL (1.4-6.5) H 02/08/21 15: Lymph # (Auto) 3.39 K/uL (1.2-3.4) 02/08/21 15:28 [place] # (Auto) 0.96 K/uL (0.11-0.59) H 02/08/21 15:28 Eos # (Auto) 0.39 K/uL (0-0.5) 02/08/21: Baso # (Auto) 0.04 K/uL (0-0.2) 02/08/21 15: Immature Gran # (Auto) 0.05 K/uL (0.00-0.02) H 02/08/21 15: APTT 21.2 Seconds (21.0-31.0) 02/08/21 15:28 PTT Ratio 0.8 02/08/21 15:28 Sodium 133 mmol/L (136-145) L 02/08/21 15:28 Potassium 4.0 mmol/L (3.5-5.1) 02/08/21 15:28 Chloride 100 mmol/L (98-107) 02/08/21 15:28 Carbon Dioxide 28 mmol/L (21-32) 02/08/21 15:28 Anion Gap 5.0 (3-11) 02/08/21 15:28 BUN 15 mg/dl (7-18) 02/08/21 15:28 Creatinine 0.61 mg/dl (0.6-1.2) 02/08/21 15:28 Est Cr Clr Drug Dosing 95.6 ml/min 02/08/21 15:28 Est GFR ( Amer) 117.5 ml/min 02/08/21 15:28 Est GFR (Non-Af Amer) 101.3 ml/min 02/08/21 15:28 BUN/Creatinine Ratio 24.0 (10-20) H 02/08/21 15:28 Glucose 282 mg/dl (70-99) H 02/08/21 15:28 POC Glucose 162 mg/dl (70-99) H 02/09/21 01:10 Calcium 9.5 mg/dl (8.5-10.1) 02/08/21 15:28 Total Bilirubin 0.3 mg/dl (0.2-1) 02/08/21 15:28 AST 7 U/L (15-37) L 02/08/21 15:28 ALT 29 U/L (12-78) 02/08/21 15:28 Alkaline Phosphatase 113 U/L (45-117) 02/08/21 15:28 Troponin I < 0.015 ng/ml (0-0.045) 02/08/21 19:04 Total Protein 8.0 gm/dl (6.4-8.2) 02/08/21 15:28 Albumin 4.1 gm/dl (3.4-5.0) 02/08/21 15:28 Globulin 3.9 gm/dl (2.5-4.0) 02/08/21 15:28 Albumin/Globulin Ratio 1.1 (0.9-2) 02/08/21 15:28 Lipase 101 U/L (73-393) 02/08/21 15:28 COVID-19 Eval Order Covid19 at [facility] 02/08/21 17:50 SARS-CoV-2 (PCR) NEGATIVE (Negative) 02/08/21 17:50 Impressions Chest X-Ray 02/08/21 15:57 XR chest 1V portable CLINICAL HISTORY: Atypical chest pain COMPARISON STUDY: 01/24/2021 FINDINGS: The cardiac and mediastinal contours are normal. There is no evidence of focal pulmonary consolidation. There is no evidence of failure. No pleural effusions are visualized.[ IMPRESSION: No active disease in the chest. ACT 112: Negative or not required by law. Electronically signed by: Jorgito Govea M.D. 02/08/2021 4:48 PM Chest CTA 02/08/21 17:17 CT ANGIOGRAM OF THE CHEST CLINICAL HISTORY: Chest pain, tachycardia, possible acute pulmonary embolism COMPARISON STUDY: 01/24/2021 TECHNIQUE: Following the IV administration of 120 mL of Optiray, CT angiogram of the thorax was performed from the thoracic inlet to the lung bases utilizing the pulmonary embolus protocol. Images are reviewed in the axial, sagittal, and coronal planes. IV contrast was administered without complication. MIP imaging was performed. A dose lowering technique was utilized adhering to the principles of ALARA. CT DOSE: 411.04 mGy.cm FINDINGS: No pathologically enlarged axillary mediastinal or hilar lymph nodes were visualized. There was no evidence of thoracic aortic dilatation. There were no pulmonary artery filling defects to indicate acute pulmonary embolism. No pleural effusions are visualized. There are mild dependent atelectatic changes. There is mild pulmonary emphysema. There is no pneumothorax. There is a calcified right upper lobe granuloma. IMPRESSION: 1. No acute intrathoracic findings 2. No evidence of acute pulmonary embolism 3. No evidence of focal pulmonary consolidation 4. Pulmonary emphysema ACT 112: Negative or not required by law. Electronically signed by: Jorgito Govea M.D. 02/08/2021 6:25 PM Code Status & VTE Plan Code Status Full code VTE Prophylaxis Plan VTE Prophylaxis will be ordered: Yes PG Care Time/CCT Total # of Minutes Spent Total Time Spent with Patient: Total time spent is greater than 50% in coordination of care (as documented) at patient's floor/unit and/or counseling patient: Coding Level of Care Code 42679 OBS Care - Level 3 Diagnoses Left-sided chest pain R07.9 Injury of left rotator cuff S46.002A Left shoulder pain M25.512 Right second toe ulcer L97.519 Diabetes mellitus type 2, uncontrolled E11.65 History of cardiac cath Z98.890 Hyperlipidemia E78.5 Esophagitis K20.90 Gastroparesis K31.84 Peripheral neuropathy G62.9
[2021-02-09] MEDS ORDERED: GLUCOSE 10 TABS/TUBE PO PRN (00:49)
[2021-02-09] MEDS ORDERED: DEXTROSE 50% 50 ML SYRINGE IV PRN (00:49)
[2021-02-09] MEDS ORDERED: GLUCAGON FOR INJ 1 MG VIAL SQ PRN (00:49)
[2021-02-09] MEDS ORDERED: GLUCOSE 40% GEL 15 GM TUBE PO PRN (00:49)
[2021-02-09] MEDS ORDERED: ONDANSETRON INJ 2 MG/ML 2 ML VIAL IV PRN (00:49)
[2021-02-09] MEDS ORDERED: CARBOHYDRATES FOR HYPOGLYCEMIA PO PRN (00:49)
[2021-02-09] MEDS ORDERED: ONDANSETRON 4 MG OD TAB PO PRN (01:11)
[2021-02-09] MEDS ORDERED: ALBUTEROL HFA 8 GM INHALER INH PRN (01:13)
[2021-02-09] MEDS: CYCLOBENZAPRINE HCL 10 MG TAB PO SCH ×3 (01:37→20:54)
[2021-02-09] MEDS: PANTOprazole 40 MG TAB PO SCH ×3 (01:37→20:53)
[2021-02-09] MEDS: NORTRIPTYLINE HCL 25 MG CAP PO SCH ×3 (01:37→20:53)
[2021-02-09] MEDS: INSULIN ASPART 100 UNITS/ML 3 ML PEN SC SCH ×5 (01:38→20:55)
[2021-02-09] MEDS: oxyCODONE HCL IR 5 MG TAB (IMMEDIATE RELEASE) PO PRN ×3 (01:39→17:45)
[2021-02-09] MEDS ORDERED: LORazepam 1 MG TAB PO PRN (01:57)
[2021-02-09] MEDS ORDERED: MoRPHine SULFATE 2 MG/ML CARP IV PRN (01:58)
[2021-02-09] MEDS ORDERED: HYDROmorphone INJ 0.5 MG/0.5 ML SYR IV ONE (02:25)
[2021-02-09] MEDS ORDERED: HYDROmorphone INJ 0.5 MG/0.5 ML SYR ONE (02:28)
[2021-02-09] MEDS: KETOROLAC TROMETHAMINE 15 MG/ML VIAL IV PRN ×2 (05:39→14:52)
[2021-02-09 07:19] LABS: Estimated Average Glucose 246 mg/dl; Hemoglobin A1C 10.2 % (4.5-5.6)
[2021-02-09] MEDS: LORazepam 1 MG TAB PO SCH ×4 (08:48→20:54)
[2021-02-09] MEDS: METOCLOPRAMIDE HCL 5 MG TABLET PO SCH ×3 (08:49→17:33)
[2021-02-09] MEDS: SUCRALFATE 1 GM TAB PO SCH ×4 (08:50→20:53)
[2021-02-09] MEDS: ASPIRIN 81 MG ECTAB PO SCH (08:50)
[2021-02-09] MEDS: lisinopril 10 MG TAB PO SCH (08:51)
--- NOTE | 2021-02-09 10:02 | Cardiology Consultation ---
Date of Consultation February 09, 2021 Assessment & Plan (1) Left-sided chest pain: Her chest discomfort is very atypical of ischemic heart disease, it has been present for a long time including when she had her catheterization and her more recent stress test and nothing has shown ischemia. There is no evidence of ischemia based on ECG, enzymes or recent echocardiography. I do not think further cardiac evaluation is indicated. It is possibly musculoskeletal although it does not seem to fit that very well either, could it be neuropathic? (2) Nonobstructive atherosclerosis of coronary artery: She has known coronary artery disease, she should remain on aspirin and statin therapy. She is now on risk factor modification although evidently it took some time to have that accomplished, that includes not smoking and medical therapy. I would consider going up to 80 mg daily of atorvastatin if possible as there are better long-term results on high doses regardless of the cholesterol profile. It is unlikely that the lesions have progressed significantly but possible. Other risk factors should be controlled including her blood pressure, she does not think she has been on a beta-justin which I think would be a good idea. (3) History of tobacco use: She tells me that she does not smoke, and has no intention of restarting. (4) Hyperlipidemia: The last cholesterol that I see is from October 20, 2020 and was 174, her LDL was 89 at that time and her HDL was 31 giving her non-HDL cholesterol a value of 143. These numbers were done prior to starting statins according to her, I do not see a subsequent cholesterol determination but I would go up on the cholesterol medications regardless as the evidence for primary prevention suggests we should do that. (5) HBP (high blood pressure): Her blood pressure is markedly elevated, her home medications do not include a beta-justin. She is on lisinopril. History of Present Illness Reason for Consultation: Chest discomfort Attending Physician: Ricardo Hernadez History of Present Illness This is a 55-year-old woman with a history of diabetes mellitus, dyslipidemia, peripheral neuropathy and gastroparesis who does have a left rotator cuff injury and pain in her left shoulder, she recently had a toe ulcer which is being treated, she also has chronic back pain and tobacco abuse. She has had a catheterization at [facility] September 22, 2019 (per records here) where she was noted to have nonobstructive coronary artery disease. This included mild luminal irregularities in the left main, 20 to 30% LAD stenosis in the midportion with a distal myocardial bridge with a 30% stenosis, mild luminal irregularities in the circumflex and less than 30% proximal right coronary artery stenosis. She presents now with left sided chest discomfort with radiation to her left shoulder and left arm. She had similar discomfort in October 2020 and had a stress echo performed on October 20, 2020 which showed no ischemic findings at 82% of maximal predicted heart rate. Chest pain was reported at peak stress, however the test was technically nondiagnostic due to failure to reach target heart rate. She did present again with a constellation of symptoms which included chest discomfort on January 24, 2021, echocardiography January 24, 2021 showed a hyperdynamic left ventricle with mild left ventricular hypertrophy, aortic sclerosis without significant stenosis and no wall motion abnormalities. It is reported that she had a stress test at [facility] 3 weeks before which was normal. The discomfort was felt to be unlikely to be cardiac and no cardiac testing was performed. She describes to me a continuous left chest discomfort which to her feels as though someone is pulling her ribs apart, it waxes and wanes somewhat but never is relieved and has been present for a year or more. It does not seem to be exertional and is not particularly positional Evaluation so far includes an electrocardiogram on February 08, 2021 at 1517 where she has sinus tachycardia at 110 bpm with no acute changes. A repeat electrocardiogram February 09, 2021 at 5:49 AM shows sinus rhythm at 98 bpm with what looks like a septal infarct (at a minimum poor R wave progression) but no acute changes. The septal findings have been seen on prior tracings. Cardiac enzymes x3 are less than 0.015. Allergies Allergy/AdvReac Type Severity Reaction Status Date / Time morphine Allergy Severe blisters Verified 02/08/21 18:00 in mouth Sulfa (Sulfonamide Allergy Severe rash/swelli Verified 02/08/21 18:00 Antibiotics) ng Home Medications Medication Instructions Recorded Confirmed Type albuterol 90 mcg INHALATION QID PRN 10/19/20 02/08/21 History aspirin 81 mg PO DAILY 10/19/20 02/08/21 History cyclobenzaprine 10 mg PO BID 10/19/20 02/08/21 History nortriptyline 50 mg PO BID 10/19/20 02/08/21 History pantoprazole 40 mg PO BID 10/19/20 02/08/21 History ropinirole 4 mg PO HS 10/19/20 02/08/21 History sucralfate 1 g PO ACHS 10/19/20 02/08/21 History zolpidem [Ambien] 10 mg PO HS 10/19/20 02/08/21 History metoclopramide HCl 5 mg PO AC #60 tab 10/21/20 02/08/21 Rx lancets #100 ea 11/12/20 11/12/20 History atorvastatin 40 mg PO PM 01/24/21 02/08/21 History lisinopril 10 mg PO DAILY 01/24/21 02/08/21 History ondansetron 4 mg PO TID PRN 01/24/21 02/08/21 History Basaglar KwikPen U-100 Insulin 48 unit SUBCUT HS #0 ml 01/28/21 02/08/21 Rx lorazepam [Ativan] 1 mg PO TID #21 tab 01/28/21 02/08/21 Rx oxycodone 5 - 10 mg PO Q8H PRN #42 tab 01/28/21 02/08/21 Rx Patient History Medical History (Updated 02/09/21 @ 10:02 by Aakash Ruff MD) Chronic back pain Depression DM2 (diabetes mellitus, type 2) Gastritis GIB (gastrointestinal bleeding) Hyperlipidemia Insulin dependent diabetes mellitus Nonobstructive atherosclerosis of coronary artery Peripheral neuropathy Seizures Surgical History History of cardiac cath done at [facility]; 09/22/19; LM - mild luminal irregularities. LAD - mid 20-30%, distal with myocardial bridge & 30% stenosis. L Cx - mild luminal irregularities. RCA - proximal <30% stenosis; mid/distal vessel mild plaques. PDA - mild luminal irregularities. History of esophagogastroduodenoscopy (EGD) Family History Mother , age 63 Myocardial infarction Father , age 68 or 69 Myocardial infarction Brother S/P CABG (coronary artery bypass graft) Sister Myocardial infarction x 3; she is 57yo Social History Smoking Status: Never smoker packs per day: 1; Years Smoked: 20; Hx Alcohol Use: No Hx Substance Use: Yes Substance Use Type Other:: medical marijuana Preferred Language: Paraguayan Communication Ability: Effective Operations And Intelligence Assistant Required: No Beliefs That Will Affect Care: None marital status: Current Living Situation: Spouse 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; 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 How many Children do You have: 3 other: raising a grandchild as well; lives in [place] Feels Safe at Home: Yes Safety Concerns: Feels Safe At This Time Assistive Devices: Glasses Results & Data ([facility]) Vital Signs (Past 12 Hours) Vital Signs Temp Pulse Pulse Resp BP BP Pulse Ox 02/09/21 07:45 36.4 C L 92 H 20 170/84 H 98 02/09/21 03:49 83 02/09/21 00:52 36.5 C 87 18 175/91 H 98 02/09/21 00:00 83 10 L 168/91 H 95 02/08/21 23:30 90 24 184/98 H 98 02/08/21 23:11 90 16 188/99 H 99 02/08/21 22:00 158 H 23 170/103 H 98 Laboratory Results Cardiac Enzymes 02/08/21 02/08/21 02/09/21 Range/Units 15:28 19:04 06:38 AST 7 L (15-37) U/L Troponin I < 0.015 < 0.015 < 0.015 (0-0.045) ng/ml Coagulation 02/08/21 Range/Units 15:28 APTT 21.2 (21.0-31.0) Seconds CBC 02/08/21 Range/Units 15:28 WBC 15.98 H (4.8-10.8) K/uL RBC 4.90 (4.2-5.4) M/uL Hgb 13.8 (12.0-16.0) g/dL Hct 40.4 (37-47) % Plt Count 337 (130-400) K/uL Neut # (Auto) 11.15 H (1.4-6.5) K/uL Lymph # (Auto) 3.39 (1.2-3.4) K/uL [place] # (Auto) 0.96 H (0.11-0.59) K/uL Eos # (Auto) 0.39 (0-0.5) K/uL Baso # (Auto) 0.04 (0-0.2) K/uL Comprehensive Metabolic Panel 02/08/21 Range/Units 15:28 Sodium 133 L (136-145) mmol/L Potassium 4.0 (3.5-5.1) mmol/L Chloride 100 (98-107) mmol/L Carbon Dioxide 28 (21-32) mmol/L BUN 15 (7-18) mg/dl Creatinine 0.61 (0.6-1.2) mg/dl Glucose 282 H (70-99) mg/dl Calcium 9.5 (8.5-10.1) mg/dl AST 7 L (15-37) U/L ALT 29 (12-78) U/L Alkaline Phosphatase 113 (45-117) U/L Total Protein 8.0 (6.4-8.2) gm/dl Albumin 4.1 (3.4-5.0) gm/dl Intake and Output 02/08/21 02/09/21 02/09/21 22:59 06:59 14:59 Intake Total 1999 120 / 2119 Balance 1999 120 / 2119 Intake: IV 1999 Sodium Chloride 0.9% 1000ML 1, 1999 000 ml @ 999 mls/hr IV .Q1H1M ONE Rx#:[id number] Oral 120 / 120 Other: Weight 71.8 kg 70.8 kg Weight Measurement Method Standing Scale Diagnostic Findings Telemetry: Sinus rhythm typically in the 90s, no significant arrhythmia PG Care Time/CCT Total # of Minutes Spent Total Time Spent with Patient: Total time spent is greater than 50% in coordination of care (as documented) at patient's floor/unit and/or counseling patient: Coding Level of Care Code 54362 Inpt Consult Level 4 Diagnoses Left-sided chest pain R07.9 Nonobstructive atherosclerosis of coronary artery I25.10 History of tobacco use Z87.891 Hyperlipidemia E78.5 Hyperlipidemia type: unspecified HBP (high blood pressure) I10 Hypertension type: essential hypertension (1) Hyperlipidemia Hyperlipidemia type: unspecified Qualified Code(s): E78.5 - Hyperlipidemia, unspecified (2) HBP (high blood pressure) Hypertension type: essential hypertension Qualified Code(s): I10 - Essential (primary) hypertension
[2021-02-09] MEDS ORDERED: oxyCODONE HCL IR 5 MG TAB (IMMEDIATE RELEASE) PO STA (10:11)
[2021-02-09] MEDS ORDERED: oxyCODONE HCL IR 5 MG TAB (IMMEDIATE RELEASE) PO PRN (11:51)
[2021-02-09] MEDS: ACETAMINOPHEN 325 MG TAB PO PRN (12:09)
[2021-02-09] MEDS: METOPROLOL SUCC 50MG EXT REL TAB PO SCH (12:10)
--- NOTE | 2021-02-09 14:19 | Orthopedic Consultation ---
Date of Consultation February 09, 2021 Assessment & Plan (1) Left-sided chest pain: I spoke to Dr Patterson in regards to this patient. Her pain pattern is different than her last admission. We are still awaiting MRI of left shoulder results [facility] We are filling out form again and resending as we do not have the results and medical records has no information for us. Her pain pattern is not typical for shoulder pathology. She has some impingement signs, but that appears secondary to her main complaint. We are recommending an MRI of her cervical spine and thoracic spine to rule out neuropathic etiology. Will await those results and discuss further treatment as indicated. To assess her left arm weakness and numbness based on the MRI results an EMG may be necessary, which can be preformed as an outpatient. I, Dr. Patterson, saw and examined the patient and discussed the management with my PA. I reviewed my PAs note and agree with the documented findings and the plan of care I developed. Continue care per primary service. Present on Admission?: Yes (2) Left arm numbness: See above Present on Admission?: Yes (3) Right second toe ulcer: Plan was discussed with Dr Patterson. Patient has been being treated for this ulcer by wound care clinic with Christophe Guevara. Per patient wound is improving. Denies s/s of infection. No further studies or surgical intervention is needed at this time. Would recommend wound care while she is in the hospital. F/U with wound clinic upon D/C. Present on Admission?: Yes History of Present Illness Reason for Consultation: Left sided shoulder pain Requesting Physician: Dr Patterson Attending Physician: Ricardo Hernadez History of Present Illness The patient is a 55-year-old female with a past medical history including nonobstructive CAD, tobacco use, chronic back pain, right second toe ulcer, diabetes mellitus 2 uncontrolled, hyperlipidemia, esophagitis, vitamin D deficiency, gastroparesis, peripheral neuropathy, and chronic left shoulder pain. Patient presents with symptoms very similar to her previous hospitalization from 01/24-01/28. However the way she is describing the pain pattern is somewhat different. She says her pain starts in left lateral chest wall area and wraps around to anterior chest and into her left shoulder. She says her neck pain is minimal. She says her left shoulder pain is minimal. She describes a general sense of heaviness into her left arm, weakness, and diffuse numbness and tingling into her fingers. She was consulted while inhouse by spine at her last visit to [facility] and they indicated if shoulder etiology ruled out wound recommend MRI of cervical spine and EMG of L UE. Patient states upon DC from [facility] had 2 visits with HHPT. She did have a cardiac catheterization in 2019, which did not find any significant disease, and had a negative stress test done about 4 weeks ago. Her tachycardia, which was thought secondary to benzodiazepine withdrawal, which was managed with reinstitution of her previous Ativan dosing. She was seen this AM by cardiology who is not recommended further testing from cardiac standpoint. They are questioning musculoskeletal or neuropathic source of pain. Regarding patients right 2nd toe, she said she has been seeing wound clinic for past 2mths at [facility] and has had significant improvement to her wound. However, if she bumps her toe, it starts bleeding again, which is what is happening now. She has an appt to see them this week but was admitted to hospital. She has not had any images to her right foot/toe. She denies fever, chills, sweats, signs or symptoms of infection. Allergies Allergy/AdvReac Type Severity Reaction Status Date / Time morphine Allergy Severe blisters Verified 02/08/21 18:00 in mouth Sulfa (Sulfonamide Allergy Severe rash/swelli Verified 02/08/21 18:00 Antibiotics) ng Home Medications Medication Instructions Recorded Confirmed Type albuterol 90 mcg INHALATION QID PRN 10/19/20 02/08/21 History aspirin 81 mg PO DAILY 10/19/20 02/08/21 History cyclobenzaprine 10 mg PO BID 10/19/20 02/08/21 History nortriptyline 50 mg PO BID 10/19/20 02/08/21 History pantoprazole 40 mg PO BID 10/19/20 02/08/21 History ropinirole 4 mg PO HS 10/19/20 02/08/21 History sucralfate 1 g PO ACHS 10/19/20 02/08/21 History zolpidem [Ambien] 10 mg PO HS 10/19/20 02/08/21 History metoclopramide HCl 5 mg PO AC #60 tab 10/21/20 02/08/21 Rx lancets #100 ea 11/12/20 11/12/20 History atorvastatin 40 mg PO PM 01/24/21 02/08/21 History lisinopril 10 mg PO DAILY 01/24/21 02/08/21 History ondansetron 4 mg PO TID PRN 01/24/21 02/08/21 History Enriquetaagljerrica Willard U-100 Insulin 48 unit SUBCUT HS #0 ml 01/28/21 02/08/21 Rx lorazepam [Ativan] 1 mg PO TID #21 tab 01/28/21 02/08/21 Rx oxycodone 5 - 10 mg PO Q8H PRN #42 tab 01/28/21 02/08/21 Rx Patient History Medical History Chronic back pain Depression DM2 (diabetes mellitus, type 2) Gastritis GIB (gastrointestinal bleeding) Hyperlipidemia Insulin dependent diabetes mellitus Nonobstructive atherosclerosis of coronary artery Peripheral neuropathy Seizures Surgical History History of cardiac cath done at [facility]; 09/22/19; LM - mild luminal irregularities. LAD - mid 20-30%, distal with myocardial bridge & 30% stenosis. L Cx - mild lumina l irregularities. RCA - proximal <30% stenosis; mid/distal vessel mild plaques. PDA - mild luminal irregularities. 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 Alert and oriented x3. Cervical spine: Functional cervical spine motion. Slight discomfort to the left lateral neck with rotation and to the left, and left lateral bending. Negative Spurling's. Nontender to palpation to the cervical spine. Left shoulder: Active left shoulder motion in flexion 160 degrees, abduction 150 degrees, external rotation 50 degrees. Positive impingement signs to left shoulder with positive Ramirez. Nontender to palpation to the left shoulder. Diffuse generalized weakness to rotator cuff muscles and left upper extremity. Neurovascular UE: Motor to AIN PIN medial radial ulnar nerve is intact. Generalized altered sensation to her left upper extremity distally to all fingers. Negative Gwendolyn's bilateral upper extremity. Bilateral upper extremity reflexes 1+ and symmetric to biceps triceps and brachial radialis. Palpable radial pulses. Negative Tinel's today noted to the left elbow and wrist. Musculoskeletal: Patient had diffuse tenderness to palpation to left thoracic spine area and left lateral chest wall. No swelling or step-offs noted. Skin intact Right second toe: Toe nail intact. Superficial ulcer to tip of toe. Bleeding on bandage. Decreased sensation to toe. Neurovascular LE: Patient has bilateral 2+ dorsalis pedis and posterior tibial pulses, functional bilateral ankle and toe range of motion.Calves are soft, negative Rhina Results & Data ([facility]) Vital Signs (Past 12 Hours) Vital Signs Temp Pulse Pulse Resp BP Pulse Ox 02/09/21 11:24 36.5 C 99 H 20 143/81 H 98 02/09/21 07:45 36.4 C L 92 H 20 170/84 H 98 02/09/21 03:49 83 Laboratory Results 02/09/21 02/09/21 02/09/21 Range/Units 12:32 11:18 07:30 WBC (4.8-10.8) K/uL RBC (4.2-5.4) M/uL Hgb (12.0-16.0) g/dL Hct (37-47) % MCV (80-100) fL MCH (25-34) pg MCHC (32-36) g/dL RDW Std Deviation (36.4-46.3) fL RDW Coeff of Maria Del Carmen (11.5-14.5) % Plt Count (130-400) K/uL MPV (7.4-10.4) fL Immature Gran % (Auto) % Neut % (Auto) % Lymph % (Auto) % [place] % (Auto) % Eos % (Auto) % Baso % (Auto) % Neut # (Auto) (1.4-6.5) K/uL Lymph # (Auto) (1.2-3.4) K/uL [place] # (Auto) (0.11-0.59) K/uL Eos # (Auto) (0-0.5) K/uL Baso # (Auto) (0-0.2) K/uL Immature Gran # (Auto) (0.00-0.02) K/uL APTT (21.0-31.0) Seconds PTT Ratio Sodium (136-145) mmol/L Potassium (3.5-5.1) mmol/L Chloride (98-107) mmol/L Carbon Dioxide (21-32) mmol/L Anion Gap (3-11) BUN (7-18) mg/dl Creatinine (0.6-1.2) mg/dl Est Cr Clr Drug Dosing ml/min Est GFR ( Amer) ml/min Est GFR (Non-Af Amer) ml/min BUN/Creatinine Ratio (10-20) Glucose (70-99) mg/dl POC Glucose 174 H 250 H (70-99) mg/dl Estimat Average Glucose mg/dl Hemoglobin A1c (4.5-5.6) % Calcium (8.5-10.1) mg/dl Total Bilirubin (0.2-1) mg/dl AST (15-37) U/L ALT (12-78) U/L Alkaline Phosphatase (45-117) U/L Troponin I < 0.015 (0-0.045) ng/ml Total Protein (6.4-8.2) gm/dl Albumin (3.4-5.0) gm/dl Globulin (2.5-4.0) gm/dl Albumin/Globulin Ratio (0.9-2) Lipase (73-393) U/L COVID-19 Eval Order SARS-CoV-2 (PCR) (Negative) 02/09/21 02/09/21 02/09/21 Range/Units 06:38 06:38 01:10 WBC (4.8-10.8) K/uL RBC (4.2-5.4) M/uL Hgb (12.0-16.0) g/dL Hct (37-47) % MCV (80-100) fL MCH (25-34) pg MCHC (32-36) g/dL RDW Std Deviation (36.4-46.3) fL RDW Coeff of Maria Del Carmen (11.5-14.5) % Plt Count (130-400) K/uL MPV (7.4-10.4) fL Immature Gran % (Auto) % Neut % (Auto) % Lymph % (Auto) % [place] % (Auto) % Eos % (Auto) % Baso % (Auto) % Neut # (Auto) (1.4-6.5) K/uL Lymph # (Auto) (1.2-3.4) K/uL [place] # (Auto) (0.11-0.59) K/uL Eos # (Auto) (0-0.5) K/uL Baso # (Auto) (0-0.2) K/uL Immature Gran # (Auto) (0.00-0.02) K/uL APTT (21.0-31.0) Seconds PTT Ratio Sodium (136-145) mmol/L Potassium (3.5-5.1) mmol/L Chloride (98-107) mmol/L Carbon Dioxide (21-32) mmol/L Anion Gap (3-11) BUN (7-18) mg/dl Creatinine (0.6-1.2) mg/dl Est Cr Clr Drug Dosing ml/min Est GFR ( Amer) ml/min Est GFR (Non-Af Amer) ml/min BUN/Creatinine Ratio (10-20) Glucose (70-99) mg/dl POC Glucose 162 H (70-99) mg/dl Estimat Average Glucose 246 mg/dl Hemoglobin A1c 10.2 H (4.5-5.6) % Calcium (8.5-10.1) mg/dl Total Bilirubin (0.2-1) mg/dl AST (15-37) U/L ALT (12-78) U/L Alkaline Phosphatase (45-117) U/L Troponin I < 0.015 (0-0.045) ng/ml Total Protein (6.4-8.2) gm/dl Albumin (3.4-5.0) gm/dl Globulin (2.5-4.0) gm/dl Albumin/Globulin Ratio (0.9-2) Lipase (73-393) U/L COVID-19 Eval Order SARS-CoV-2 (PCR) (Negative) 02/08/21 02/08/21 02/08/21 Range/Units 19:04 17:50 17:50 WBC (4.8-10.8) K/uL RBC (4.2-5.4) M/uL Hgb (12.0-16.0) g/dL Hct (37-47) % MCV (80-100) fL MCH (25-34) pg MCHC (32-36) g/dL RDW Std Deviation (36.4-46.3) fL RDW Coeff of Maria Del Carmen (11.5-14.5) % Plt Count (130-400) K/uL MPV (7.4-10.4) fL Immature Gran % (Auto) % Neut % (Auto) % Lymph % (Auto) % [place] % (Auto) % Eos % (Auto) % Baso % (Auto) % Neut # (Auto) (1.4-6.5) K/uL Lymph # (Auto) (1.2-3.4) K/uL [place] # (Auto) (0.11-0.59) K/uL Eos # (Auto) (0-0.5) K/uL Baso # (Auto) (0-0.2) K/uL Immature Gran # (Auto) (0.00-0.02) K/uL APTT (21.0-31.0) Seconds PTT Ratio Sodium (136-145) mmol/L Potassium (3.5-5.1) mmol/L Chloride (98-107) mmol/L Carbon Dioxide (21-32) mmol/L Anion Gap (3-11) BUN (7-18) mg/dl Creatinine (0.6-1.2) mg/dl Est Cr Clr Drug Dosing ml/min Est GFR ( Amer) ml/min Est GFR (Non-Af Amer) ml/min BUN/Creatinine Ratio (10-20) Glucose (70-99) mg/dl POC Glucose (70-99) mg/dl Estimat Average Glucose mg/dl Hemoglobin A1c (4.5-5.6) % Calcium (8.5-10.1) mg/dl Total Bilirubin (0.2-1) mg/dl AST (15-37) U/L ALT (12-78) U/L Alkaline Phosphatase (45-117) U/L Troponin I < 0.015 (0-0.045) ng/ml Total Protein (6.4-8.2) gm/dl Albumin (3.4-5.0) gm/dl Globulin (2.5-4.0) gm/dl Albumin/Globulin Ratio (0.9-2) Lipase (73-393) U/L COVID-19 Eval Order Covid19 at [facility] SARS-CoV-2 (PCR) NEGATIVE (Negative) 02/08/21 02/08/21 02/08/21 Range/Units 15:28 15:28 15:28 WBC 15.98 H (4.8-10.8) K/uL RBC 4.90 (4.2-5.4) M/uL Hgb 13.8 (12.0-16.0) g/dL Hct 40.4 (37-47) % MCV 82.4 (80-100) fL MCH 28.2 (25-34) pg MCHC 34.2 (32-36) g/dL RDW Std Deviation 39.2 (36.4-46.3) fL RDW Coeff of Maria Del Carmen 13.1 (11.5-14.5) % Plt Count 337 (130-400) K/uL MPV 9.9 (7.4-10.4) fL Immature Gran % (Auto) 0.3 % Neut % (Auto) 69.8 % Lymph % (Auto) 21.2 % [place] % (Auto) 6.0 % Eos % (Auto) 2.4 % Baso % (Auto) 0.3 % Neut # (Auto) 11.15 H (1.4-6.5) K/uL Lymph # (Auto) 3.39 (1.2-3.4) K/uL [place] # (Auto) 0.96 H (0.11-0.59) K/uL Eos # (Auto) 0.39 (0-0.5) K/uL Baso # (Auto) 0.04 (0-0.2) K/uL Immature Gran # (Auto) 0.05 H (0.00-0.02) K/uL APTT 21.2 (21.0-31.0) Seconds PTT Ratio 0.8 Sodium 133 L (136-145) mmol/L Potassium 4.0 (3.5-5.1) mmol/L Chloride 100 (98-107) mmol/L Carbon Dioxide 28 (21-32) mmol/L Anion Gap 5.0 (3-11) BUN 15 (7-18) mg/dl Creatinine 0.61 (0.6-1.2) mg/dl Est Cr Clr Drug Dosing 95.6 ml/min Est GFR ( Amer) 117.5 ml/min Est GFR (Non-Af Amer) 101.3 ml/min BUN/Creatinine Ratio 24.0 H (10-20) Glucose 282 H (70-99) mg/dl POC Glucose (70-99) mg/dl Estimat Average Glucose mg/dl Hemoglobin A1c (4.5-5.6) % Calcium 9.5 (8.5-10.1) mg/dl Total Bilirubin 0.3 (0.2-1) mg/dl AST 7 L (15-37) U/L ALT 29 (12-78) U/L Alkaline Phosphatase 113 (45-117) U/L Troponin I < 0.015 (0-0.045) ng/ml Total Protein 8.0 (6.4-8.2) gm/dl Albumin 4.1 (3.4-5.0) gm/dl Globulin 3.9 (2.5-4.0) gm/dl Albumin/Globulin Ratio 1.1 (0.9-2) Lipase 101 (73-393) U/L COVID-19 Eval Order SARS-CoV-2 (PCR) (Negative) Diagnostic Findings [facility], [place] [phone] XRay Report Patient: EILEEN ESCOBAR Admit Date: 02/08/21 MR#: [id number] Address1: [address] [place] [address] Acct ID:[id number] Address2: Date: 1965 [facility] Zip: [place] [address] Age: 55 Location: ED Sex: F Room/Bed: Att Phy: Diagnosis: CHEST PAIN,LT ARM NUMB,SOB,VOMITING Ana Maria Phy: Vince Vernon, Service Date: 02/08/21 Fam Phy: Interpreting Phy: Jorgito Govea MD Admit Phy: Ordering Phy: Anish Lowery MD cc: ~ XR chest 1V portable CLINICAL HISTORY: Atypical chest pain COMPARISON STUDY: 01/24/2021 FINDINGS: The cardiac and mediastinal contours are normal. There is no evidence of focal pulmonary consolidation. There is no evidence of failure. No pleural effusions are visualized.[ IMPRESSION: No active disease in the chest. ACT 112: Negative or not required by law. [place], [place] [phone] XRay Report Patient: EILEEN ESCOBAR Admit Date: 01/24/21 MR#: [id number] Address1: [address] [place] [address] Acct ID:[id number] Address2: Date: 1965 [facility] Zip: [place] [address] Age: 55 Location: 3W Sex: F Room/Bed: W350-2 Att Phy: Sangeeta Ko MD Diagnosis: PALPITATIONS,HYPONATREMIA,HYPERGLYCEMIA,CHEST PAIN Ana Maria Phy: Vince Vernon DO Service Date: 01/26/21 [facility] Phy: Interpreting Phy: Ora Lopez DO Admit Phy: Silvestre Carvajal MD Ordering Phy: Sangeeta Ko MD cc: ~ XR shoulder LT min 2V routine CLINICAL HISTORY: left shoulder pain COMPARISON: None. DISCUSSION: The bones and joint spaces appear intact. There is no evidence of fracture, dislocation or bony disease. There is no evidence for soft tissue swelling. IMPRESSION: Negative study. ACT 112: Negative or not required by law [facility], [place] [phone] XRay Report Patient: EILEEN ESCOBAR Admit Date: 01/24/21 MR#: [id number] Address1: [address] [place] [address] Acct ID:[id number] Address2: Date: 1965 [facility] Zip[facility] [address] Age: 55 Location: 3W Sex: F Room/Bed: [facility] Att Phy: Sangeeta Ko MD Diagnosis: PALPITATIONS,HYPONATREMIA,HYPERGLYCEMIA,CHEST PAIN Ana Maria Phy: Vince Vernon DO Service Date: 01/26/21 Fam Phy: Interpreting Phy: Ora Lopez DO Admit Phy: Silvestre Carvajal MD Ordering Phy: Sangeeta Ko MD cc: ~ XR shoulder LT min 2V routine CLINICAL HISTORY: left shoulder pain COMPARISON: None. DISCUSSION: The bones and joint spaces appear intact. There is no evidence of fracture, dislocation or bony disease. There is no evidence for soft tissue swelling. IMPRESSION: Negative study. ACT 112: Negative or not required by law.
[2021-02-09] MEDS: rOPINIRole HCL 1 MG TABLET PO SCH (20:53)
[2021-02-09] MEDS: ATORVASTATIN 40 MG TAB PO SCH (20:53)
[2021-02-09] MEDS: ZOLPIDEM TARTRATE 10 MG TAB PO SCH (20:54)
[2021-02-09] MEDS: INSULIN GLARGINE SOLOSTAR 100 UNITS/ML 3 ML PEN SQ SCH (20:55)
[2021-02-09] MEDS: LIDOCAINE 5% 1 PATCH TD SCH (20:58)
[2021-02-09] MEDS: HYDROmorphone INJ 0.5 MG/0.5 ML SYR IV PRN (21:27)
--- NOTE | 2021-02-09 22:08 | Hospitalist Progress Note ---
Date of Service February 09, 2021 Assessment & Plan (1) Left-sided chest pain: Left-sided chest pain/left shoulder pain/left arm pain/history of injury of left rotator cuff- Patient does not have an elevated ESR. Perhaps patient may have fibromyalgia. will have ortho eval patient in regards to her toe. May consider pain management. will recommend PT/OT consult will increase her narcotics. will consider gabapentin (2) Injury of left rotator cuff: See above (3) Left shoulder pain: See above (4) Right second toe ulcer: Has been following with wound care, consult wound care for inpatient. (5) Diabetes mellitus type 2, uncontrolled: Continue Basaglar insulin Placed on Accu-Cheks before meals and at bedtime with NovoLog coverage per scale (6) History of cardiac cath: Noted (7) Hyperlipidemia: Continue atorvastatin 40 mg daily (8) Esophagitis: Continue pantoprazole 40 mg p.o. twice daily (9) Gastroparesis: Continue Reglan/metoclopramide (10) Peripheral neuropathy: Continue ropinirole, nortriptyline, cyclobenzaprine. Admission and Anticipated Discharge Date Admission Date: February 08, 2021 Subjective Patient reports having pain. She states her pain is chronic. She is having pain in her left shulder, chest and right second toe. Pain is severe Review of Systems Review of Systems: All systems reviewed & are unremarkable except as noted in HPI & below Physical Exam Physical Exam: The patient is awake, alert and oriented 3, well developed and well nourished, normocephalic and atraumatic, lying in bed and in no acute distress. HEENT--PERRL, EOMI, mucous membranes and oropharynx normal. Neck--supple. No JVD. No bruits. Thyroid normal, trachea midline, no adenopathy. Heart--normal S1 and S2. No murmurs, rubs or gallops. Lungs--clear bilaterally, no respiratory distress, no accessory muscle use. Abdomen--normal bowel sounds and soft. Nontender. Nondistended, no hernias or masses, no organomegaly. Extremities--no cyanosis or clubbing. No edema. There are good distal pulses b/l. Dermatologic--normal skin turgor, normal color, no abnormal lymph nodes, no rash. Neurologic--cranial nerves II through XII grossly intact. Rheumatologic--decreased range of motion left upper extremity due to pain Psychiatric--normal affect. Results & Data Results & Data ([facility]) Vital Signs (Past 12 Hours) Vital Signs Temp Pulse Pulse Resp BP Pulse Ox 02/09/21 18:28 36.4 C L 71 16 93/60 L 96 02/09/21 15:56 75 02/09/21 15:34 36.5 C 74 18 104/65 96 02/09/21 11:24 36.5 C 99 H 20 143/81 H 98 PG Care Time/CCT Total # of Minutes Spent Total Time Spent with Patient: Total time spent is greater than 50% in coordination of care (as documented) at patient's floor/unit and/or counseling patient: Coding Level of Care Code 20830 Subseq Obs Care Lvl 2 Diagnoses Left-sided chest pain R07.9 Injury of left rotator cuff S46.002A Left shoulder pain M25.512 Right second toe ulcer L97.519 Diabetes mellitus type 2, uncontrolled E11.65 History of cardiac cath Z98.890 Hyperlipidemia E78.5 Hyperlipidemia type: unspecified Esophagitis K20.90 Gastroparesis K31.84 Peripheral neuropathy G62.9 Time Spent (min) 25 (1) Hyperlipidemia Hyperlipidemia type: unspecified Qualified Code(s): E78.5 - Hyperlipidemia, unspecified
[2021-02-10] MEDS: KETOROLAC TROMETHAMINE 15 MG/ML VIAL IV PRN ×3 (00:16→19:48)
[2021-02-10] MEDS: NORTRIPTYLINE HCL 25 MG CAP PO SCH ×2 (08:05→19:50)
[2021-02-10] MEDS: ASPIRIN 81 MG ECTAB PO SCH (08:05)
[2021-02-10] MEDS: PANTOprazole 40 MG TAB PO SCH ×2 (08:05→19:51)
[2021-02-10] MEDS: METOPROLOL SUCC 50MG EXT REL TAB PO SCH (08:05)
[2021-02-10] MEDS: lisinopril 10 MG TAB PO SCH (08:05)
[2021-02-10] MEDS: SUCRALFATE 1 GM TAB PO SCH ×4 (08:05→19:49)
[2021-02-10] MEDS: oxyCODONE HCL IR 5 MG TAB (IMMEDIATE RELEASE) PO PRN ×2 (08:06→15:29)
[2021-02-10] MEDS: LORazepam 1 MG TAB PO SCH ×3 (08:06→19:51)
[2021-02-10] MEDS: METOCLOPRAMIDE HCL 5 MG TABLET PO SCH ×3 (08:08→18:00)
[2021-02-10] MEDS: INSULIN ASPART 100 UNITS/ML 3 ML PEN SC SCH ×4 (08:10→19:59)
[2021-02-10] MEDS: CYCLOBENZAPRINE HCL 10 MG TAB PO SCH ×2 (09:33→19:50)
--- NOTE | 2021-02-10 10:30 | Cardiology Progress Note ---
Date of Service February 10, 2021 Assessment & Plan (1) Left-sided chest pain: Her chest discomfort is very atypical of ischemic heart disease, it has been present for a long time including when she had her catheterization and her more recent stress test and nothing has shown ischemia. There is no evidence of ischemia based on ECG, enzymes or recent echocardiography. I do not think further cardiac evaluation is indicated. It is possibly musculoskeletal although it does not seem to fit that very well either, could it be neuropathic? (2) Nonobstructive atherosclerosis of coronary artery: She has known coronary artery disease, she should remain on aspirin and statin therapy. She is now on risk factor modification although evidently it took some time to have that accomplished, that includes not smoking and medical therapy. I would consider going up to 80 mg daily of atorvastatin if possible as there are better long-term results on high doses regardless of the cholesterol profile. It is unlikely that the lesions have progressed significantly but possible. Other risk factors should be controlled including her blood pressure, she does not think she has been on a beta-justin in the past and I started that yesterday. (3) History of tobacco use: She tells me that she does not smoke, and has no intention of restarting. (4) Hyperlipidemia: The last cholesterol that I see is from October 20, 2020 and was 174, her LDL was 89 at that time and her HDL was 31 giving her non-HDL cholesterol a value of 143. These numbers were done prior to starting statins according to her, I do not see a subsequent cholesterol determination but I would go up on the cholesterol medications regardless as the evidence for primary prevention suggests we should do that. (5) HBP (high blood pressure): Her blood pressure one markedly elevated, her home medications do not include a beta-justin. She is on lisinopril but does have diabetes so this may be a good drug for her to be on. Her blood pressure fell a surprising amount with beta-blockade, she had some symptomatic hypotension although nothing dangerous. I think we should cut back on her beta-blockade to metoprolol succinate 50 mg daily. Admission and Anticipated Discharge Date Admission Date: February 08, 2021 Subjective She continues to have chest discomfort but it is perhaps improved. She was a little bit lightheaded today with her low blood pressure. No presyncope or syncope. Physical Exam Physical Exam: Constitutional: Alert, cooperative and in no distress. HEENT: Unremarkable Neck: No jugular venous distention, carotid pulses are normal and equal bilaterally without bruits. Pulmonary: Clear to auscultation bilaterally. Cardiac: Regular rhythm with no murmur, gallop or rub. Abdomen: Soft, nontender with normal bowel sounds. Extremities: No edema. Distal pulses intact. Neurologic: No focal findings. Gait is steady. Skin: No rash, ecchymoses or petechiae. Results & Data ([facility]) Vital Signs (Past 12 Hours) Vital Signs Temp Pulse Pulse Resp BP BP Pulse Ox 02/10/21 07:29 36.8 C 82 20 111/71 93 02/10/21 04:33 36.8 C 79 18 94/53 L 94 02/10/21 01:13 74 Laboratory Results Cardiac Enzymes 02/09/21 02/09/21 02/10/21 Range/Units 12:32 20:56 07:21 Troponin I < 0.015 < 0.015 < 0.015 (0-0.045) ng/ml Intake and Output 02/09/21 02/10/21 02/10/21 22:59 06:59 14:59 Intake Total 220 / 490 Balance 220 / 490 Intake: Oral 220 / 490 Other: # Unmeasured Voids 1 Weight 70.8 kg 72.2 kg Weight Measurement Method Standing Scale Diagnostic Findings Telemetry: Sinus rhythm in the 70s or 80s today PG Care Time/CCT Total # of Minutes Spent Total Time Spent with Patient: Total time spent is greater than 50% in coordination of care (as documented) at patient's floor/unit and/or counseling patient: Coding Level of Care Code 92545 Subseq Hosp Care Lvl 3 Diagnoses Left-sided chest pain R07.9 Nonobstructive atherosclerosis of coronary artery I25.10 History of tobacco use Z87.891 Hyperlipidemia E78.5 Hyperlipidemia type: unspecified HBP (high blood pressure) I10 Hypertension type: essential hypertension (1) Hyperlipidemia Hyperlipidemia type: unspecified Qualified Code(s): E78.5 - Hyperlipidemia, unspecified (2) HBP (high blood pressure) Hypertension type: essential hypertension Qualified Code(s): I10 - Essential (primary) hypertension
--- NOTE | 2021-02-10 11:18 | Orthopedic Progress Note ---
Date of Service February 10, 2021 Assessment & Plan (1) Left-sided chest pain: I spoke to Dr Patterson in regards to this patient. Records requested from [facility] regarding last admission pertaining to her left shoulder pain and symptoms. Her pain pattern is not typical for shoulder pathology. She has some impingement signs, but that appears secondary to her main complaint. MRI of her cervical spine and thoracic spine ordered to rule out neuropathic etiology. Will await those results and discuss further treatment as indicated. To assess her left arm weakness and numbness based on the MRI results an EMG may be necessary, which can be preformed as an outpatient. (2) Left arm numbness: See above (3) Right second toe ulcer: Plan was discussed with Dr Patterson. Seen by wound care nurse this am and had dressing change. F/U with wound clinic upon D/C. Admission and Anticipated Discharge Date Admission Date: February 08, 2021 Subjective Pt seen this am. Resting in bed. She says she is feeling "some better". On a pain scale she says when she was admitted her pain was 10/10. Currently its a 7/10. The pain continues to be mainly left sided lateral chest wall and thoracic pain. She said her and a nurse felt a "knot" in her back and has been using heat, which is helping. Wound care nurse saw her this am and changed dressing to right 2nd toe. Denies f/c/s, or s/s of infection. Denies chest pain or SOB at rest. Awaiting Cervical and Thoracic MRI results. Physical Exam Physical Exam: VS stable. Patient resting in bed comfortably. Was on phone upon entering. Alert and Oriented. Moved left shoulder and neck freely without pain. Patient continues to be diffusely tender to left thoracic spine and lateral chest wall area. Left upper extremity exam unchanged. Right 2nd toe redressed. NV exam R LE unchanged. Neg lissette and calves soft bilaterally. Results & Data ([facility]) Vital Signs (Past 12 Hours) Vital Signs Temp Pulse Pulse Resp BP BP Pulse Ox 02/10/21 11:03 36.7 C 75 18 130/75 97 02/10/21 07:29 36.8 C 82 20 111/71 93 02/10/21 04:33 36.8 C 79 18 94/53 L 94 02/10/21 01:13 74 Laboratory Results 02/10/21 02/10/21 02/09/21 Range/Units 07:21 07:19 20:56 POC Glucose 94 (70-99) mg/dl Troponin I < 0.015 < 0.015 (0-0.045) ng/ml 02/09/21 02/09/21 02/09/21 Range/Units 20:27 16:25 12:32 POC Glucose 181 H 159 H (70-99) mg/dl Troponin I < 0.015 (0-0.045) ng/ml 02/09/21 Range/Units 11:18 POC Glucose 174 H (70-99) mg/dl Troponin I (0-0.045) ng/ml
--- NOTE | 2021-02-10 11:18 | Electrocardiogram Report ---
Test Reason : Blood Pressure : / mmHG Vent. Rate : 110 BPM Atrial Rate : 111 BPM P-R Int : 158 ms QRS Dur : 078 ms QT Int : 300 ms P-R-T Axes : 071 068 083 degrees QTc Int : 406 ms Sinus tachycardia Anteroseptal infarct (cited on or before 08-FEB-2021) Abnormal ECG When compared with ECG of 25-JAN-2021 04:17, No significant change was found Confirmed by Aakash Ruff ([id number]) on 02/10/2021 11:18:22 AM Referred By: Vince Vernon Confirmed By:Aakash Ruff
[2021-02-10] MEDS: ACETAMINOPHEN 325 MG TAB PO PRN (12:51)
--- NOTE | 2021-02-10 13:49 | Electrocardiogram Report ---
Test Reason : Blood Pressure : / mmHG Vent. Rate : 098 BPM Atrial Rate : 098 BPM P-R Int : 158 ms QRS Dur : 090 ms QT Int : 350 ms P-R-T Axes : 070 068 070 degrees QTc Int : 446 ms Normal sinus rhythm Septal infarct (cited on or before 08-FEB-2021) Abnormal ECG When compared with ECG of 08-FEB-2021 15:17, (unconfirmed) No significant change was found Confirmed by Aakash Ruff ([id number]) on 02/10/2021 1:48:51 PM Referred By: Vince Vernon Confirmed By:Aakash Ruff
[2021-02-10] MEDS: rOPINIRole HCL 1 MG TABLET PO SCH (19:49)
[2021-02-10] MEDS: ATORVASTATIN 40 MG TAB PO SCH (19:50)
[2021-02-10] MEDS: LIDOCAINE 5% 1 PATCH TD SCH (19:51)
[2021-02-10] MEDS: INSULIN GLARGINE SOLOSTAR 100 UNITS/ML 3 ML PEN SQ SCH (19:56)
--- NOTE | 2021-02-10 20:57 | Hospitalist Progress Note ---
Date of Service February 10, 2021 Assessment & Plan (1) Left-sided chest pain: Left-sided chest pain/left shoulder pain/left arm pain/history of injury of left rotator cuff- Patient does not have an elevated ESR. Perhaps patient may have fibromyalgia. appreciate ortho input. Patient reports she did not tolerate gaapentin, lyrica, cymbalta. May consider pain management. will recommend PT/OT consult will remain on oxycodone 10 mg po prn. (2) Injury of left rotator cuff: See above (3) Left shoulder pain: See above (4) Right second toe ulcer: Has been following with wound care, consult wound care for inpatient. (5) Diabetes mellitus type 2, uncontrolled: Continue Basaglar insulin Placed on Accu-Cheks before meals and at bedtime with NovoLog coverage per scale (6) History of cardiac cath: Noted (7) Hyperlipidemia: Continue atorvastatin 40 mg daily (8) Esophagitis: Continue pantoprazole 40 mg p.o. twice daily (9) Gastroparesis: Continue Reglan/metoclopramide (10) Peripheral neuropathy: Continue ropinirole, nortriptyline, cyclobenzaprine. Admission and Anticipated Discharge Date Admission Date: February 08, 2021 Subjective Patient reports pain is better controlled. Review of Systems Review of Systems: All systems reviewed & are unremarkable except as noted in HPI & below Physical Exam Physical Exam: The patient is awake, alert and oriented 3 HEENT--PERRL, EOMI, mucous membranes and oropharynx normal. Neck--supple. No JVD. No bruits. Thyroid normal, trachea midline, no adenopathy. Heart--normal S1 and S2. No murmurs, rubs or gallops. Lungs--clear bilaterally, no respiratory distress, no accessory muscle use. Abdomen--normal bowel sounds and soft. Nontender. Nondistended, no hernias or masses, no organomegaly. Extremities--no cyanosis or clubbing. No edema. There are good distal pulses b/l. Dermatologic--normal skin turgor, normal color, no abnormal lymph nodes, no rash. Neurologic--cranial nerves II through XII grossly intact. Rheumatologic--decreased range of motion left upper extremity due to pain Psychiatric--normal affect. Results & Data Results & Data ([facility]) Vital Signs (Past 12 Hours) Vital Signs Temp Pulse Pulse Resp BP Pulse Ox 02/10/21 18:19 36.5 C 66 18 110/69 96 02/10/21 15:13 36.8 C 70 16 134/76 92 02/10/21 15:00 71 02/10/21 11:03 36.7 C 75 18 130/75 97 PG Care Time/CCT Total # of Minutes Spent Total Time Spent with Patient: Total time spent is greater than 50% in coordination of care (as documented) at patient's floor/unit and/or counseling patient: Coding Level of Care Code 04229 Subseq Hosp Care Lvl 2 Diagnoses Left-sided chest pain R07.9 Injury of left rotator cuff S46.002A Left shoulder pain M25.512 Right second toe ulcer L97.519 Diabetes mellitus type 2, uncontrolled E11.65 History of cardiac cath Z98.890 Hyperlipidemia E78.5 Hyperlipidemia type: unspecified Esophagitis K20.90 Gastroparesis K31.84 Peripheral neuropathy G62.9 Time Spent (min) 25 (1) Hyperlipidemia Hyperlipidemia type: unspecified Qualified Code(s): E78.5 - Hyperlipidemia, unspecified
[2021-02-10] MEDS ORDERED: DOCUSATE SODIUM/SENNA 50/8.6MG TAB PO ONE (21:16)
[2021-02-10] MEDS: HYDROmorphone INJ 0.5 MG/0.5 ML SYR IV PRN ×2 (21:16→23:08)
[2021-02-10] MEDS: ZOLPIDEM TARTRATE 10 MG TAB PO SCH (23:08)
[2021-02-11] MEDS: HYDROmorphone INJ 0.5 MG/0.5 ML SYR IV PRN ×2 (03:12→07:59)
[2021-02-11] MEDS: KETOROLAC TROMETHAMINE 15 MG/ML VIAL IV PRN ×2 (05:57→13:15)
[2021-02-11] MEDS: METOCLOPRAMIDE HCL 5 MG TABLET PO SCH ×2 (07:58→11:39)
[2021-02-11] MEDS: SUCRALFATE 1 GM TAB PO SCH ×2 (07:58→11:40)
[2021-02-11 08:38] LABS: Hematocrit (blood only) 35.6 % (37-47); Hemoglobin 11.9 g/dL (12.0-16.0); Mean Corpuscular Hgb Conc 33.4 g/dL (32-36); Mean Corpuscular Volume 83.8 fL (80-100); Mean Platelet Volume 9.7 fL (7.4-10.4); Platelet Count 277 K/uL (130-400); RDW Coefficient of Variation 13.2 % (11.5-14.5); RDW Standard Deviation 39.8 fL (36.4-46.3); Red Blood Count 4.25 M/uL (4.2-5.4)
--- NOTE | 2021-02-11 08:44 | Magnetic Resonance Report ---
MRI OF THE CERVICAL SPINE WITHOUT IV CONTRAST CLINICAL HISTORY: Neuropathic pain. Left arm numbness and weakness. COMPARISON STUDY: Radiographs of the cervical spine dated 01/27/2021. TECHNIQUE: MRI of the cervical spine is performed utilizing various T1 and T2-weighted sequences in t he axial and sagittal planes. IV contrast was not administered for this examination. FINDINGS: Cervical spine: Vertebral body height and alignment are maintained throughout the cervical spine. Nor mal marrow signal intensity is maintained throughout the visualized bony structures. The atlantodenta l articulation is maintained. The spinous processes appear intact. No destructive bony lesion is seen . Minimal degenerative endplate change is noted at C5-C6. Intervertebral discs: There is mild degenerative disc desiccation. No loss of height is seen. Spinal cord: The cervical spinal cord is normal in morphology and signal intensity. C2-C3: Mild facet arthropathy is of no consequence. The central canal and neural foramina are clear. C3-C4: Facet arthropathy causes mild left neural foraminal stenosis. The central canal is clear. C4-C5: Uncovertebral and facet arthropathy cause mild to moderate left and minimal right neural bassam inal stenosis. C5-C6: Uncovertebral and facet arthropathy cause mild bilateral neural foraminal stenosis. C6-C7: Unremarkable. C7-T1: Unremarkable. Soft tissues: The prevertebral and paraspinous soft tissues are normal as visualized. Brain parenchyma: The visualized brain parenchyma at the skull base is normal as imaged. IMPRESSION: 1. The cervical spinal cord is normal in morphology and signal intensity. 2. Minimal spondylotic change as above with no central canal stenosis identified. 3. No destructive bony process is seen. Dictated: 02/11/2021 7:53 AM Transcribed: 02/11/2021 8:39 AM Renetta [id number] ARIAN_Norma Electronically signed by: Finn Bradshaw M.D. 02/11/2021 8:42 AM
[2021-02-11 08:58] LABS: BUN Creatinine Ratio 41.5 (10-20); C Reactive Protein 0.41 mg/dl (0-0.29); Calcium 8.6 mg/dl (8.5-10.1); Creatinine Clr Calc Pharmacy 119.3 ml/min; Est GFR (African American) 126.2 ml/min; Est GFR (Non-African American) 108.9 ml/min; Potassium 4.4 mmol/L (3.5-5.1)
[2021-02-11] MEDS ORDERED: DOCUSATE SODIUM/SENNA 50/8.6MG TAB PO SCH (09:00)
[2021-02-11] MEDS ORDERED: METOPROLOL SUCC 50MG EXT REL TAB PO SCH (09:00)
[2021-02-11] MEDS: LORazepam 1 MG TAB PO SCH (09:15)
[2021-02-11] MEDS: CYCLOBENZAPRINE HCL 10 MG TAB PO SCH (09:15)
[2021-02-11] MEDS: NORTRIPTYLINE HCL 25 MG CAP PO SCH (09:16)
[2021-02-11] MEDS: PANTOprazole 40 MG TAB PO SCH (09:17)
[2021-02-11] MEDS: lisinopril 10 MG TAB PO SCH (09:17)
[2021-02-11] MEDS: INSULIN ASPART 100 UNITS/ML 3 ML PEN SC SCH ×2 (09:18→13:47)
[2021-02-11] MEDS: ASPIRIN 81 MG ECTAB PO SCH (09:18)
--- NOTE | 2021-02-11 09:32 | Magnetic Resonance Report ---
MR thoracic spine wo con CLINICAL HISTORY: neuropathic pain LEFT-SIDED RIB SHOULDER NECK AND BACK PAIN. LEFT-SIDED NUMBNESS. PRIOR STUDIES: X-ray study dated 10/20/2020 TECHNIQUE: MR scanning of the thoracic spine was performed using multiple pulse sequences. No gadoli nium was administered. FINDINGS: There are no areas of marrow replacement to indicate metastatic disease. There is a small T11 vertebral body focal fatty rest/hemangioma. No cord lesions are visualized. There is a tiny right paracentral T3-4 disc protrusion. There is a tiny left posterior lateral T5-6 disc protrusion. There is a tiny T7-8 central disc protrusion. There is a small central T9-10 disc protrusion. No paraspinal masses are visualized on this noncontrast study. No cord lesions are delineated. There is an 8 mm T2 bright right renal lesion likely representing a cyst. IMPRESSION: 1. No cord lesions identified 2. No evidence of metastatic disease 3. Mild multilevel spondylytic changes with multiple tiny and small thoracic disc protrusions. No sig nificant spinal stenosis. ACT 112: Negative or not required by law. Electronically signed by: Jorgito Govea M.D. 02/11/2021 9:30 AM
[2021-02-11] MEDS: oxyCODONE HCL IR 5 MG TAB (IMMEDIATE RELEASE) PO PRN (11:39)
--- NOTE | 2021-02-11 11:53 | Orthopedic Progress Note ---
Date of Service February 11, 2021 Assessment & Plan (1) Left-sided chest pain: Records requested from [facility] regarding last admission pertaining to her left shoulder pain and symptoms. She has some impingement signs, but that appears secondary to her main complaint. MRI of her cervical spine and thoracic spine reviewed and show no compression on spinal chord, no spinal stenosis. Degenerative changes noted and disc protrusions but no findings to point to neuropathic or radicular etiology for her pain. She more than likely has musculoskeletal type pain/muscle spasm contributing to her thoracic lateral chest wall pain. Treat conservatively with heat and or ice. OTC nsaids/tyle nol. Topical ointments/cream/patches. In regards to her left shoulder pain and left arm numbness and weakness. We are recommending an EMG of L UE and f/u with Dr Patterson in office as an outpatient. We will contact the patient to schedule the EMG and [facility] with Dr Rivera and will then follow-up with Dr Patterson to review. He will consider at that time also an US with possible for co rtisone injection into her shoulder for impingement symptoms. Recommend PT upon DC from hospital. Patient seen today with Dr Patterson. Patient voiced understanding of plan. From an orthopedic standpoint will sign off. I, Dr. Patterson, saw and examined the patient and discussed the management with my PA. I reviewed my PAs note and agree with the documented findings and the plan of care I developed. Present on Admission?: Yes (2) Left arm numbness: See above. Present on Admission?: Yes (3) Right second toe ulcer: Plan was discussed with Dr Patterson. Continue with wound care. F/U with wound clinic upon D/C. Present on Admission?: Yes Admission and Anticipated Discharge Date Admission Date: February 10, 2021 Subjective Patient reports pain is better controlled. Aware we are here to review her MRIs of thoracic and cervical spine performed last evening. Physical Exam Physical Exam: VS stable. Patient was in bathroom prior to arriving. Moving around freely without issue. Alert and Oriented. Moved left shoulder and neck freely without pain. Patient continues to be diffusely tender to left thoracic spine and lateral chest wall area. Left upper extremity exam unchanged. Right 2nd toe dressed. NV exam R LE unchanged. Neg lissette and calves soft bilaterally. Results & Data ([facility]) Vital Signs (Past 12 Hours) Vital Signs Temp Pulse Resp BP BP Pulse Ox 02/11/21 07:19 36.4 C L 76 16 114/74 91 02/11/21 00:00 36.7 C 76 18 119/70 98 Diagnostic Findings [facility], [phone] Magnetic Resonance Report Patient: EILEEN ESCOBARAdmit Date: 02/10/21MR#: [id number]: [id number] RDAcct ID:[id number]: Date: 1965[place]: [place] [address]Jay: 55Location: 3NSex: FRoom/Bed: [id number] Phy: Ricardo Hernadez M.D.Diagnosis: LEFT SIDE CHEST AND ARM PAINPri Phy: Vince Vernon, DOService Date: 02/10/21Fam Phy:Interpreting Phy: Jorgito Govea [facility] Phy: Mike Montana M.D. Ordering Phy: Zakia Blackwood P.A.-C. cc: ~ MR thoracic spine wo con CLINICAL HISTORY: neuropathic pain LEFT-SIDED RIB SHOULDER NECK AND BACK PAIN. LEFT-SIDED NUMBNESS. PRIOR STUDIES: X-ray study dated 10/20/2020 TECHNIQUE: MR scanning of the thoracic spine was performed using multiple pulse sequences. No gadolinium was administered. FINDINGS: There are no areas of marrow replacement to indicate metastatic disease. There is a small T11 vertebral body focal fatty rest/hemangioma. No cord lesions are visualized. There is a tiny right paracentral T3-4 disc protrusion. There is a tiny left posterior lateral T5-6 disc protrusion. There is a tiny T7-8 central disc protrusion. There is a small central T9-10 disc protrusion. No paraspinal masses are visualized on this noncontrast study. No cord lesions are delineated. There is an 8 mm T2 bright right renal lesion likely representing a cyst. IMPRESSION: 1. No cord lesions identified 2. No evidence of metastatic disease 3. Mild multilevel spondylytic changes with multiple tiny and small thoracic disc protrusions. No significant spinal stenosis. ACT 112: Negative or not required by law. Electronically signed by: Jorgito Govea M.D. 02/11/2021 9:30 AM Dictated: 02/11/21922Transcribed: 02/11/21922 [facility] [place], [phone] Magnetic Resonance Report Patient: EILEEN ESCOBARAdmit Date: 02/10/21MR#: [id number]: [id number] RDAcct ID:[id number]: Date: 1965[facility] [place] [id number]: 55Location: 3NSex: FRoom/Bed: [id number] Phy: Ricardo Hernadez M.D.Diagnosis: LEFT SIDE CHEST AND ARM PAINPri Phy: Vince Vernon, DOService Date: 02/10/21Fam Phy:Interpreting Phy: Finn Bradshaw MDAdmit Phy: Mike Montana M.D. Ordering Phy: Zakia Blackwood P.A.-C. cc: ~ MRI OF THE CERVICAL SPINE WITHOUT IV CONTRAST CLINICAL HISTORY: Neuropathic pain. Left arm numbness and weakness. COMPARISON STUDY: Radiographs of the cervical spine dated 01/27/2021. TECHNIQUE: MRI of the cervical spine is performed utilizing various T1 and T2- weighted sequences in the axial and sagittal planes. IV contrast was not administered for this examination. FINDINGS: Cervical spine: Vertebral body height and alignment are maintained throughout the cervical spine. Normal marrow signal intensity is maintained throughout the visualized bony structures. The atlantodental articulation is maintained. The spinous processes appear intact. No destructive bony lesion is seen. Minimal degenerative endplate change is noted at C5-C6. Intervertebral discs: There is mild degenerative disc desiccation. No loss of height is seen. Spinal cord: The cervical spinal cord is normal in morphology and signal intensity. C2-C3: Mild facet arthropathy is of no consequence. The central canal and neural foramina are clear. C3-C4: Facet arthropathy causes mild left neural foraminal stenosis. The central canal is clear. C4-C5: Uncovertebral and facet arthropathy cause mild to moderate left and minimal right neural foraminal stenosis. C5-C6: Uncovertebral and facet arthropathy cause mild bilateral neural foraminal stenosis. C6-C7: Unremarkable. C7-T1: Unremarkable. Soft tissues: The prevertebral and paraspinous soft tissues are normal as visualized. Brain parenchyma: The visualized brain parenchyma at the skull base is normal as imaged. IMPRESSION: 1. The cervical spinal cord is normal in morphology and signal intensity. 2. Minimal spondylotic change as above with no central canal stenosis identified. 3. No destructive bony process is seen. Dictated: 02/11/2021 7:53 AM Transcribed: 02/11/2021 8:39 AM Renetta [id number] ARIAN_Norma
--- NOTE | 2021-02-13 19:07 | Discharge Summary ---
Date of Service February 11, 2021 Admission HPI Per Admitting Provider The patient is a 55-year-old female with a past medical history including nonobstructive CAD, tobacco use, chronic back pain, right second toe ulcer, diabetes mellitus 2 uncontrolled, hyperlipidemia, esophagitis, vitamin D deficiency, gastroparesis, peripheral neuropathy, left rotator cuff injury and scapular dyskinesis. Patient presents with symptoms very similar to her previous hospitalization from 01/24-01/28. These consist of left-sided pain, left shoulder pain and pain down the left arm. She did have a cardiac catheterization in 2019, which did not find any significant disease, and had a negative stress test done about 4 weeks ago. She did a laceration of her tachycardia, which was thought secondary to benzodiazepine withdrawal, which was managed with reinstitution of her previous Ativan dosing. Principal Diagnosis left sided chest pain Discharge Exam The patient is awake, alert and oriented 3 HEENT--PERRL, EOMI, mucous membranes and oropharynx normal. Neck--supple. No JVD. No bruits. Thyroid normal, trachea midline, no adenopathy. Heart--normal S1 and S2. No murmurs, rubs or gallops. Lungs--clear bilaterally, no respiratory distress, no accessory muscle use. Abdomen--normal bowel sounds and soft. Nontender. Nondistended, no hernias or masses, no organomegaly. Extremities--no cyanosis or clubbing. No edema. There are good distal pulses b/l. Dermatologic--normal skin turgor, normal color, no abnormal lymph nodes, no rash. Neurologic--cranial nerves II through XII grossly intact. Rheumatologic--decreased range of motion left upper extremity due to pain Psychiatric--normal affect. Discharge Data Allergies Allergy/AdvReac Type Severity Reaction Status Date / Time morphine Allergy Severe blisters Verified 02/08/21 18:00 in mouth Sulfa (Sulfonamide Allergy Severe rash/swelli Verified 02/08/21 18:00 Antibiotics) ng Consultations 02/08/21 22:35 ED Decision to Admit Stat 02/09/21 08:10 Consult Cardiology Routine 02/09/21 12:22 Consult Orthopedic Surgery Routine Ordered Studies 02/08/21 17:17 CT angio chest PE protocol Stat 02/10/21 10:37 MR cervical spine wo con Routine MR thoracic spine wo con Routine Hospital Course (1) Left-sided chest pain: Left-sided chest pain/left shoulder pain/left arm pain/history of injury of left rotator cuff- Patient does not have an elevated ESR. Perhaps patient may have fibromyalgia. appreciate ortho input. Patient reports she did not tolerate gaapentin, lyrica, cymbalta. May consider pain management followup. Patient reports she is following up will discharge on extended release hydrocodone and short acting oxycodone for breakthrough pain. (2) Injury of left rotator cuff: See above (3) Left shoulder pain: See above (4) Right second toe ulcer: Has been following with wound care, consult wound care for inpatient. (5) Diabetes mellitus type 2, uncontrolled: Continue Basaglar insulin Placed on Accu-Cheks before meals and at bedtime with NovoLog coverage per scale (6) History of cardiac cath: Noted (7) Hyperlipidemia: Continue atorvastatin 40 mg daily (8) Esophagitis: Continue pantoprazole 40 mg p.o. twice daily (9) Gastroparesis: Continue Reglan/metoclopramide (10) Peripheral neuropathy: Continue ropinirole, nortriptyline, cyclobenzaprine. Total Time Total Time Spent Total Time Spent (In Minutes): 32 Discharge Plan Discharge Items Patient Disposition: Home - Self-Care Reason For Visit: LEFT SIDE CHEST AND ARM PAIN Discharge Diagnosis: left side chest and arm pain Activity: Resume your previous activity Non-emergency contact: Primary Care Provider Call non-emergency contact if: you have any medication questions Follow-up/Referrals: Vince Vernon, DO [Primary Care Provider] - Diet: Carb Consistent or DM2 and Heart Healthy Addtl Attending Provider Instructions: Dr Patterson's office will contact patient to schedule EMG of left upper extremity and follow up with Dr Patterson after. Patient can contact the office ([facility]) at [phone] with any questions or concerns prior to then. Will recommend hydrocodone for long acting pain relief with intermittent oxycodone for breakthrough pain. Please followup with PCP in [address] heavy machinery when taking narcotics. Pending Studies at Discharge: No Stand-Alone Forms: My MemberConnection, Smoking Cessation Medications and DC Order Prescriptions: New metoprolol succinate 50 mg Tablet Extended Release 24 Hr 50 mg PO QAM Qty: 30 RF: 0 lidocaine 5 % Adhesive Patch,Medicated 1 patch transdermal DAILY Qty: 14 RF: 0 hydrocodone bitartrate 20 mg tablet,oral only,ext.rel.24 hr 20 mg PO DAILY Qty: 7 RF: 0 oxycodone 5 mg tablet 5 mg PO Q8H PRN (Reason: severe pain) Qty: 14 RF: 0 Continued (DME) lancets [OneTouch UltraSoft Lancets] Misc See Rx Instructions .ROUTE .MEDSUPPLY Qty: 100 RF: 0 atorvastatin 40 mg tablet 40 mg PO PM RF: 0 lisinopril 10 mg tablet 10 mg PO DAILY RF: 0 ondansetron 4 mg tablet,disintegrating 4 mg PO TID PRN (Reason: Nausea And Vomiting) RF: 0 oxycodone 5 mg Tablet 5 - 10 mg PO Q8H PRN (Reason: severe pain) Qty: 42 RF: 0 lorazepam [Ativan] 1 mg Tablet 1 mg PO TID Qty: 21 RF: 0 Basaglar KwikPen U-100 Insulin 100 unit/mL (3 mL) Insulin Pen 48 unit SUBCUT HS Qty: 0 RF: 0 cyclobenzaprine 10 mg Tablet 10 mg PO BID RF: 0 sucralfate 1 gram Tablet 1 g PO ACHS RF: 0 aspirin 81 mg Tablet,Delayed Release (Dr/Ec) 81 mg PO DAILY RF: 0 ropinirole 2 mg Tablet 4 mg PO HS RF: 0 pantoprazole 40 mg Tablet,Delayed Release (Dr/Ec) 40 mg PO BID RF: 0 albuterol 90 mcg/actuation Aerosol 90 mcg INHALATION QID PRN (Reason: Shortness Of Breath Or Wheezing) RF: 0 zolpidem [Ambien] 10 mg Tablet 10 mg PO HS RF: 0 nortriptyline 50 mg Capsule 50 mg PO BID RF: 0 metoclopramide HCl 5 mg Tablet 5 mg PO AC Qty: 60 RF: 0 Discharge Orders: Discharge Order (Routine); Ordered 02/11/21 Ordered By: Ricardo Nava/Other Patient Handouts: Communicating About Pain Admission Data Admit Date/Time: 02/10/21 17:14 Attending Provider: Ricardo Hernadez Admit Provider: Mike Montana Primary Care Provider: Vince Vernon Other Providers: Jayson Staton ; Homer Hernadez ; Biju Tolbert ; Julito Colon ; Jossue Suarez ; Aakash Ruff ; Piero Larson Jr ; Andre Hinojosa ; Luiza Smith ; Luiza Lowery ; Adonis Lin ; Adonis Guerra ; Fuentes Contreras ; David French ; Deena Ware ; Nikhil Bocanegra ; Demian Pruitt ; Mich Dalton ; Kevin Patterson ; Cedric Nuno ; Thad Roa ; Oliva Batres ; Deena James ; Mike Montana ; Cecil Post ; Sajan Huggins ; Sajan Funes ; Zakia Blackwood ; Cherry Ortiz ; María Meadows ; Annette Aggarwal ; Dixie Leonard Other Interventions: Discharge Summary Assessment (RN) Last Done: 02/11/21 13:36 Coding Level of Care Code D/C Day Management >30 mins Diagnoses Left-sided chest pain R07.9 Injury of left rotator cuff S46.002A Left shoulder pain M25.512 Right second toe ulcer L97.519 Diabetes mellitus type 2, uncontrolled E11.65 History of cardiac cath Z98.890 Hyperlipidemia E78.5 Hyperlipidemia type: unspecified Esophagitis K20.90 Gastroparesis K31.84 Peripheral neuropathy G62.9
== END 2021-02-11 13:56 | disposition home or self-care (01) ==
LOC: 2N 15:10 → ED 15:10 → SUATTDRO 23:41 → OBSVTOIN 23:41 → INTOOBSV 23:41 → 2N 02-09 00:56 → 3N 02-11 03:08

== ENCOUNTER 2021-07-14 11:54 | Inpatient (IN) ==
[2021-07-14 15:42] LABS: Basophils # (auto) 0.03 K/uL (0-0.2); Basophils % (auto) 0.2 %; Eosinophils # (auto) 0.27 K/uL (0-0.5); Eosinophils % (auto) 1.7 %; Hematocrit (blood only) 40.9 % (37-47); Hemoglobin 13.9 g/dL (12.0-16.0); Immature Granulocytes # (auto) 0.05 K/uL (0.00-0.02); Immature Granulocytes % (auto) 0.3 %; Lymphocytes # (auto) 3.14 K/uL (1.2-3.4); Lymphocytes % (auto) 19.6 %; Mean Corpuscular Hemoglobin 27.9 pg (25-34); Mean Platelet Volume 9.8 fL (7.4-10.4); Monocytes # (auto) 0.92 K/uL (0.11-0.59); Monocytes % (auto) 5.7 %; Neutrophils % (auto) 72.5 %; Platelet Count 397 K/uL (130-400); RDW Coefficient of Variation 14.5 % (11.5-14.5); RDW Standard Deviation 43.3 fL (36.4-46.3); Red Blood Count 4.99 M/uL (4.2-5.4); White Blood Count 16.01 K/uL (4.8-10.8)
[2021-07-14 15:45] LABS: Prothrombin Time 9.7 Seconds (9.0-12.0)
[2021-07-14 16:03] LABS: Alanine Aminotransferase 21 U/L (12-78); Albumin Level 3.7 gm/dl (3.4-5.0); Aspartate Aminotransferase 4 U/L (15-37); BUN Creatinine Ratio 21.3 (10-20); Blood Urea Nitrogen 12 mg/dl (7-18); Calcium 9.1 mg/dl (8.5-10.1); Carbon Dioxide 24 mmol/L (21-32); Chloride 101 mmol/L (98-107); Est GFR (African American) 118.6 ml/min; Est GFR (Non-African American) 102.3 ml/min; Glucose 294 mg/dl (70-99); Potassium 4.1 mmol/L (3.5-5.1); Sodium 133 mmol/L (136-145)
[2021-07-14 16:07] LABS: Alkaline Phosphatase 111 U/L (45-117); Bilirubin,Total 0.4 mg/dl (0.2-1); Globulin 3.8 gm/dl (2.5-4.0); Total Protein 7.5 gm/dl (6.4-8.2)
[2021-07-14] MEDS ORDERED: oxyCODONE HCL IR 5 MG TAB (IMMEDIATE RELEASE) PO STA (18:25)
[2021-07-14] MEDS ORDERED: ONDANSETRON 4 MG OD TAB PO STA (18:25)
--- NOTE | 2021-07-14 18:28 | Emergency Department Note ---
Impression & Plan Cellulitis, Leukocytosis, Foot pain, right ED Provider Note INFORMANT: Patient ED PROVIDER(S): Mathew Decker MD CHIEF COMPLAINT: Right foot. Referred by PLAN: Disposition: Admitted Condition: Good Outpatient prescription management: none Referral: None MEDICAL DECISION MAKING: Patient was evaluated in the triage area secondary to hospital at maximum capacity in the ER being overfull. She has obvious wound to the right foot. She has a leukocytosis of 16,000. Rest of her labs are unremarkable. CT imaging was ordered. Due to the discomfort the patient was given a oral Zofran and oral oxycodone. She was sent for CT imaging. Covid swab was performed. The patient CT scan shows peripheral vascular disease but no acute definitive occlusion. Radiology did note that she has a small fluid collection concerning for early abscess. The patient was treated with daptomycin and Zosyn. She will need further management in the hospital. I did discuss with the [facility] hospitalist service. Due to the high volume the patient was evaluated and her testing was coordinated through triage. Patient was evaluated by the hospitalist service and admitted for further management. Triage Nursing notes reviewed and agree them. Vital Signs: reviewed and remarkable for no significant abnormalities Differential diagnosis: Cellulitis, vascular compromise, abscess, MRSA infection, DVT, necrotizing fasciitis, dermatitis, drug eruption, allergic reaction, as well as other pathologies. Diagnostics interpreted by me: ECG: none Cardiac Monitoring: none Imaging studies: Angiography as noted below. HPI: The patient is a 56year old female who presents to the Emergency Room with complaints of right foot pain. The patient was referred by Dr. Lin in the cardiology office because of an infected right great toe wound. He is concerned about vascular blockage and asked for a CT angiogram with runoff to be performed. Patient states this is been going on for about a month. She rates 10 out of 10 pain. She was seen by the wound center as well. She did receive a shot of Dilaudid yesterday which only helped temporarily. Patient does have a history of MRSA. She denies any other recent illnesses. The patient does note she had chills today while waiting. Pt denies LOC, headache, fevers, diaphoresis, visual changes, neck pain, chest pain, breathing difficulties, nausea, vomiting, abdominal pain, back pain, melena, hematochezia, urinary symptoms, numbness, weakness, lymphadenopathy, or other complaints. ROS: See above HPI for pertinent positives & negatives. A total of 10 systems reviewed and were otherwise negative. PAST MEDICAL HISTORY:See Below , diabetes, MRSA PAST SURGICAL HISTORY:See Below, right second toe amputation FAMILY HISTORY:See Below SOCIAL HISTORY:See Below, former smoker HOME MEDICATIONS:See Below ALLERGIES:See Below VITALS:See Below PHYSICAL EXAMINATION: GENERAL: Awake, alert, very uncomfortable-appearing, in moderate distress HENT: Normocephalic, atraumatic. Wearing a mask EYES: Normal conjunctiva. Sclera non-icteric. NECK: Inspection normal. Non-tender. Supple. No nuchal rigidity. FROM. No masses. RESPIRATORY: Clear to auscultation. No wheezes. No rales. Normal respiratory effort. CARDIAC: Normal rate. Normal rhythm. No murmurs. No rubs. Extremities warm and well perfused. Pulses equal. No JVD. GI: Soft, non-distended. No tenderness to palpation. No rebound or guarding. No masses. RECTAL: Deferred. MUSCULOSKELETAL: Atraumatic. Chest examination reveals no tenderness. The back is symmetrical on inspection without obvious abnormality. There is no CVA tenderness to palpation. No joint edema. LOWER EXTREMITIES: Calves are equal size bilaterally and non-tender. There is erythematous discoloration and warmth concerning for cellulitis of the right distal foot and there is desquamation of the right great toe. Tender to palpation. Old amputation of second toe on the right foot present. Mild tenderness without redness noted of the proximal barbosa. No bony deformity. NEURO: Normal sensorium. No sensory or motor deficits noted. SKIN: No rash or jaundice noted. Mathew Decker MD Past Med/Surg History Medical History Chronic back pain Depression DM2 (diabetes mellitus, type 2) Gastritis GIB (gastrointestinal bleeding) Hyperlipidemia Insulin dependent diabetes mellitus Nonobstructive atherosclerosis of coronary artery Peripheral neuropathy Seizures Surgical History History of cardiac cath done at [facility]; 09/22/19; LM - mild luminal irregularities. LAD - mid 20-30%, distal with myocardial bridge & 30% stenosis. L Cx - mild luminal irregularities. RCA - proximal <30% stenosis; mid/distal vessel mild plaques. PDA - mild luminal irregularities. History of esophagogastroduodenoscopy (EGD) Family History Mother , age 63 Myocardial infarction Father , age 68 or 69 Myocardial infarction Brother S/P CABG (coronary artery bypass graft) Sister Myocardial infarction x 3; she is 57yo Social History Smoking Status: Former smoker Tobacco Type: Cigarettes packs per day: 1; Years Smoked: 20; Cigarettes Per Day: 1 PPD for 20 years; Second Hand Exposure: No; Do You Dip or Chew Tobacco: No; Tobacco Cessation Education Requested by Patient: No Hx Alcohol Use: No Hx Substance Use: Yes Last Used Substance: Unknown Substance Use Type Other:: Pt. 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 How many Children do You have: 3 Other Information That Helps Us Care for You: No other: raising a grandchild as well; lives in [place] Feels Safe at Home: Yes Safety Concerns: Feels Safe At This Time Assistive Devices: None Allergies Allergies Allergy/AdvReac Type Severity Reaction Status Date / Time morphine Allergy Severe blisters Verified 07/14/21 20:58 in mouth Sulfa (Sulfonamide Allergy Severe rash/swelli Verified 07/14/21 20:58 Antibiotics) ng vancomycin Allergy Intermediate YULIYA Verified 07/14/21 20:58 SYNDROME Home Meds Home Medications Medication Instructions Recorded Confirmed aspirin 81 mg tablet,delayed 81 mg PO QAM 10/19/20 07/14/21 release (Aspirin Low Dose) cyclobenzaprine 10 mg tablet 10 mg PO TID 10/19/20 07/14/21 nortriptyline 50 mg capsule 100 mg PO HS 10/19/20 07/14/21 (Pamelor) ropinirole 2 mg tablet 4 mg PO HS 10/19/20 07/14/21 zolpidem 10 mg tablet (Ambien) 10 mg PO HS 10/19/20 07/14/21 lancets (OneTouch UltraSoft #100 ea 11/12/20 07/14/21 Lancets) atorvastatin 40 mg tablet (Lipitor) 40 mg PO HS 01/24/21 07/14/21 lisinopril 10 mg tablet (Zestril) 10 mg PO QAM 01/24/21 07/14/21 albuterol sulfate 90 mcg/actuation 1 puff INHALATION QID PRN 03/05/21 07/14/21 aerosol inhaler (Proventil HFA) insulin glargine 100 unit/mL (3 40 unit SUBCUT HS 03/05/21 07/14/21 mL) subcutaneous pen (Basaglar KwikPen U-100 Insulin) insulin lispro 100 unit/mL 10 unit SUBCUT TIDM 03/05/21 07/14/21 subcutaneous pen (Humalog KwikPen (U-100) Insulin) metoprolol succinate 50 mg 50 mg PO QAM 03/05/21 07/14/21 tablet,extended release 24 hr (Toprol XL) Previous Rx's Medication Instructions Recorded lorazepam 1 mg tablet (Ativan) 1 mg PO TID #21 tab 01/28/21 Results & Data (ED) Vital Signs Vital Signs - 24 hr 07/14/21 12:47 Temperature 36.3 C L Temperature Source Temporal Artery Scan Pulse Rate 74 Respiratory Rate 18 Blood Pressure 133/77 Blood Pressure Mean 95 Pulse Oximetry 97 Oxygen Delivery Method Room Air Sepsis Recent Fever Within 48 Hours No Sepsis New/Unexplained Change in Mental Status No Sepsis Action Taken by Nursing No Action Required Laboratory Data Result diagrams: 07/14/21 14:42 07/14/21 14:42 Lab Results 07/14/21 07/14/21 07/14/21 Range/Units 14:42 14:42 14:42 WBC 16.01 H (4.8-10.8) K/uL RBC 4.99 (4.2-5.4) M/uL Hgb 13.9 (12.0-16.0) g/dL Hct 40.9 (37-47) % MCV 82.0 (80-100) fL MCH 27.9 (25-34) pg MCHC 34.0 (32-36) g/dL RDW Std Deviation 43.3 (36.4-46.3) fL RDW Coeff of Maria Del Carmen 14.5 (11.5-14.5) % Plt Count 397 (130-400) K/uL MPV 9.8 (7.4-10.4) fL Immature Gran % (Auto) 0.3 % Neut % (Auto) 72.5 % Lymph % (Auto) 19.6 % [place] % (Auto) 5.7 % Eos % (Auto) 1.7 % Baso % (Auto) 0.2 % Neut # (Auto) 11.60 H (1.4-6.5) K/uL Lymph # (Auto) 3.14 (1.2-3.4) K/uL [place] # (Auto) 0.92 H (0.11-0.59) K/uL Eos # (Auto) 0.27 (0-0.5) K/uL Baso # (Auto) 0.03 (0-0.2) K/uL Immature Gran # (Auto) 0.05 H (0.00-0.02) K/uL PT 9.7 (9.0-12.0) Seconds INR 1.0 (0.9-1.1) Sodium 133 L (136-145) mmol/L Potassium 4.1 (3.5-5.1) mmol/L Chloride 101 (98-107) mmol/L Carbon Dioxide 24 (21-32) mmol/L Anion Gap 9.0 (3-11) BUN 12 (7-18) mg/dl Creatinine 0.58 L (0.6-1.2) mg/dl Est Cr Clr Drug Dosing Not Reportable Est GFR ( Amer) 118.6 ml/min Est GFR (Non-Af Amer) 102.3 ml/min BUN/Creatinine Ratio 21.3 H (10-20) Glucose 294 H (70-99) mg/dl POC Glucose (70-99) mg/dl Calcium 9.1 (8.5-10.1) mg/dl Total Bilirubin 0.4 (0.2-1) mg/dl AST 4 L (15-37) U/L ALT 21 (12-78) U/L Alkaline Phosphatase 111 (45-117) U/L Total Protein 7.5 (6.4-8.2) gm/dl Albumin 3.7 (3.4-5.0) gm/dl Globulin 3.8 (2.5-4.0) gm/dl Albumin/Globulin Ratio 1.0 (0.9-2) SARS-CoV-2, RNA, NAAT (NEGATIVE) 07/14/21 07/14/21 Range/Units 15:29 18:30 WBC (4.8-10.8) K/uL RBC (4.2-5.4) M/uL Hgb (12.0-16.0) g/dL Hct (37-47) % MCV (80-100) fL MCH (25-34) pg MCHC (32-36) g/dL RDW Std Deviation (36.4-46.3) fL RDW Coeff of Maria [place] Carm[place] (11.5-14.5) % Plt Count (130-400) K/uL MPV (7.4-10.4) fL Immature Gran % (Auto) % Neut % (Auto) % Lymph % (Auto) % [place] % (Auto) % Eos % (Auto) % Baso % (Auto) % Neut # (Auto) (1.4-6.5) K/uL Lymph # (Auto) (1.2-3.4) K/uL [place] # (Auto) (0.11-0.59) K/uL Eos # (Auto) (0-0.5) K/uL Baso # (Auto) (0-0.2) K/uL Immature Gran # (Auto) (0.00-0.02) K/uL PT (9.0-12.0) Seconds INR (0.9-1.1) Sodium (136-145) mmol/L Potassium (3.5-5.1) mmol/L Chloride (98-107) mmol/L Carbon Dioxide (21-32) mmol/L Anion Gap (3-11) BUN (7-18) mg/dl Creatinine (0.6-1.2) mg/dl Est Cr Clr Drug Dosing Est GFR ( Amer) ml/min Est GFR (Non-Af Amer) ml/min BUN/Creatinine Ratio (10-20) Glucose (70-99) mg/dl POC Glucose 283 H (70-99) mg/dl Calcium (8.5-10.1) mg/dl Total Bilirubin (0.2-1) mg/dl AST (15-37) U/L ALT (12-78) U/L Alkaline Phosphatase (45-117) U/L Total Protein (6.4-8.2) gm/dl Albumin (3.4-5.0) gm/dl Globulin (2.5-4.0) gm/dl Albumin/Globulin Ratio (0.9-2) SARS-CoV-2, RNA, NAAT NEGATIVE (NEGATIVE) Administered Medications Acetaminophen (Acetaminophen 325 Mg Tab) 650 mg PO Q4H PRN PRN Reason: pain/fever Stop: 08/13/21 23:01 Last Admin: 07/15/21 01:27 Dose: 650 mg Documented by: [id number] Daptomycin 350 mg/ Syringe 7 mls @ 3.5 mls/min IV Q24H [facility]; Protocol Stop: 07/16/21 23:44 Last Admin: 07/15/21 00:07 Dose: 3.5 mls/min Documented by: [id number] Insulin Aspart (Insulin Aspart 100 Units/Ml 3 Ml Pen) 0 units SC ACHS RICKY Stop: 08/14/21 00:59 Last Admin: 07/15/21 01:25 Dose: 5 units Documented by: [id number] Cosigned by: [id number] Insulin Glargine (Insulin Glargine Solostar 100 Units/Ml 3 Ml Pen) 40 units SQ HS [facility] Stop: 08/14/21 00:59 Last Admin: 07/15/21 01:24 Dose: 40 units Documented by: [id number] Cosigned by: [id number] Discontinued Medications Enoxaparin Sodium (Enoxaparin Inj 40 Mg/0.4 Ml Syr) 40 mg SQ Q24H [facility] Stop: 08/13/21 23:01 Last Admin: 07/15/21 00:21 Dose: 40 mg Documented by: [id number] Hydromorphone HCl (Hydromorphone Inj 0.5 Mg/0.5 Ml Syr) Confirm Administered Dose 0.5 mg .ROUTE .STK-MED ONE Stop: 07/15/21 00:06 Last Admin: 07/15/21 00:07 Dose: 0.5 mg Documented by: [id number] Piperacillin Sod/Tazobactam Sod (Zosyn) 4.5 gm in 120 mls @ 240 mls/hr IV NOW ONE Stop: 07/14/21 20:13 Last Infusion: 07/15/21 00:45 Dose: 0 mls/hr Documented by: [id number] Admin: 07/15/21 00:15 Dose: 240 mls/hr Documented by: [id number] Ioversol (Optiray 320 125ml) 116 ml IV ONCE ONE Stop: 07/14/21 18:53 Last Admin: 07/14/21 18:52 Dose: 116 ml Documented by: [id number] Ondansetron HCl (Ondansetron 4 Mg Od Tab) 4 mg PO NOW STA Stop: 07/14/21 18:26 Last Admin: 07/14/21 18:31 Dose: 4 mg Documented by: [id number] Oxycodone HCl (Oxycodone Hcl Ir 5 Mg Tab (Immediate Release)) 5 mg PO NOW STA Stop: 07/14/21 18:26 Last Admin: 07/14/21 18:31 Dose: 5 mg Documented by: [id number] Imaging Data Radiologist's Impression: Aorta w/Runoff CTA 07/14/21 18:09 CT ATROPHY OF THE ABDOMEN AND PELVIS WITH BILATERAL LOWER EXTREMITY RUNOFF CLINICAL HISTORY: Right leg leg vascular issues, wound. COMPARISON STUDY: CT of the abdomen and pelvis January 24, 2021. TECHNIQUE: Helical axial images of the abdomen and pelvis with bilateral lower extremity runoff were obtained following intravenous injection of 116 cc of Optiray 320 IV. Study was performed during arterial phase. Sagittal and coronal reconstructions were viewed as well as maximal intensity projections on an independent 3-D workstation. Automated exposure control was utilized for the study. A dose lowering technique was utilized adhering to the principles of ALARA. FINDINGS: Lung bases are unremarkable. No pneumatosis, free air or portal venous gas is present. Arterial phase images of liver, spleen, adrenal glands, kidneys and pancreas are unremarkable. There is no significant biliary ductal dilatation status post cholecystectomy. There is no evidence for a bowel obstruction. The caliber and wall thickness of small and large bowel are normal. A mildly enlarged right inguinal lymph node measures 1.9 x 1.2 cm. Postoperative findings within the lumbosacral spine are present. Caliber of the abdominal aorta is normal. There is moderate atherosclerotic plaque. Major branch vessels are patent. The left common iliac and external iliac arteries are patent. There are mild to moderate multifocal stenoses of the left superficial femoral artery. Moderate plaque within this vessel is noted. The left popliteal artery is patent. There is severe stenosis of the proximal left anterior tibial artery. The left calf vessels are suboptimally assessed on this exam as the CT scan are not readily bolus. There is mild stenosis of the distal right external iliac artery. There are mild to moderate multifocal stenoses within the right superficial femoral artery. The right popliteal artery is patent. The right calf vessels are suboptimally assessed on this exam given venous opacification, likely due to shunting. There are moderate multifocal stenosis of the proximal right anterior tibial artery. The right dorsalis pedis is suboptimally assessed but likely patent. The right posterior tibial artery is difficult to assess on this exam. However, this vessel is probably patent. IMPRESSION: 1. Moderate aortoiliac and bilateral lower extremity atherosclerotic plaque. 2. Mild stenosis of the distal right external iliac artery. Mild to moderate multifocal stenoses within the bilateral superficial femoral arteries. 3. Suboptimal evaluation of the bilateral calf vessels, as described above. Severe stenosis of the proximal left anterior tibial artery and moderate stenoses of the proximal right anterior tibial artery. Further evaluation with lower extremity arterial Doppler ultrasound is recommended. 4. No acute process within the abdomen or pelvis. 5. Mildly enlarged right inguinal lymph node which is likely reactive. ACT 112: Negative or not required by law. Electronically signed by: Wilver Powell M.D. 07/14/2021 7:32 PM Discharge Plan Visit Data Chief Complaint: Wound Stated Complaint: OPEN WOUND ON TOE,REF BY CARDIO DOC ED Provider: Mathew Decker Discharge Problem: Cellulitis, Leukocytosis, Foot pain, right Patient Disposition: Admitted As Inpatient Discharge Instructions Interventions: ED Discharge Assessment Last Done: 07/14/21 21:57
[2021-07-14] MEDS ORDERED: OPTIRAY 320 125ml IV ONE (18:52)
--- NOTE | 2021-07-14 19:33 | CT Scan Report ---
CT ATROPHY OF THE ABDOMEN AND PELVIS WITH BILATERAL LOWER EXTREMITY RUNOFF CLINICAL HISTORY: Right leg leg vascular issues, wound. COMPARISON STUDY: CT of the abdomen and pelvis January 24, 2021. TECHNIQUE: Helical axial images of the abdomen and pelvis with bilateral lower extremity runoff were obtained following intravenous injection of 116 cc of Optiray 320 IV. Study was performed during zion rial phase. Sagittal and coronal reconstructions were viewed as well as maximal intensity projections on an independent 3-D workstation. Automated exposure control was utilized for the study. A dose lo wering technique was utilized adhering to the principles of ALARA. FINDINGS: Lung bases are unremarkable. No pneumatosis, free air or portal venous gas is present. [place] rial phase images of liver, spleen, adrenal glands, kidneys and pancreas are unremarkable. There is n o significant biliary ductal dilatation status post cholecystectomy. There is no evidence for a bowel obstruction. The caliber and wall thickness of small and large bowel are normal. A mildly enlarged r ight inguinal lymph node measures 1.9 x 1.2 cm. Postoperative findings within the lumbosacral spine a re present. Caliber of the abdominal aorta is normal. There is moderate atherosclerotic plaque. Major branch vess els are patent. The left common iliac and external iliac arteries are patent. There are mild to moder ate multifocal stenoses of the left superficial femoral artery. Moderate plaque within this vessel is noted. The left popliteal artery is patent. There is severe stenosis of the proximal left anterior t ibial artery. The left calf vessels are suboptimally assessed on this exam as the CT scan are not brandie dily bolus. There is mild stenosis of the distal right external iliac artery. There are mild to moderate multifoc al stenoses within the right superficial femoral artery. The right popliteal artery is patent. The ri ght calf vessels are suboptimally assessed on this exam given venous opacification, likely due to deepa nting. There are moderate multifocal stenosis of the proximal right anterior tibial artery. The right dorsalis pedis is suboptimally assessed but likely patent. The right posterior tibial artery is diff icult to assess on this exam. However, this vessel is probably patent. IMPRESSION: 1. Moderate aortoiliac and bilateral lower extremity atherosclerotic plaque. 2. Mild stenosis of the distal right external iliac artery. Mild to moderate multifocal stenoses with in the bilateral superficial femoral arteries. 3. Suboptimal evaluation of the bilateral calf vessels, as described above. Severe stenosis of the pr oximal left anterior tibial artery and moderate stenoses of the proximal right anterior tibial artery . Further evaluation with lower extremity arterial Doppler ultrasound is recommended. 4. No acute process within the abdomen or pelvis. 5. Mildly enlarged right inguinal lymph node which is likely reactive. ACT 112: Negative or not required by law. Electronically signed by: Wilver Powell M.D. 07/14/2021 7:32 PM
[2021-07-14] MEDS ORDERED: PIPERACILLIN/TAZOBACTAM 4.5 GM/120 ML BAG IV ONE (19:44)
[2021-07-14] MEDS ORDERED: PIPERACILL/TAZOBAC CONSULT ACTIVE PRN (19:44)
[2021-07-14] MEDS ORDERED: DAPTOmycin 240 MG in SYRINGE 0 ML IV ONE (19:44)
--- NOTE | 2021-07-14 20:42 | History & Physical Report ---
Date of Service July 14, 2021 Assessment & Plan (1) Toe ulcer, right: Plan: Patient is a 56 year old female with PMHx DM2, HLD, Peripheral Neuropathy, PAD that presents with chief complaint of worsening pain of her R foot and at the recommendation of her Can Feeder Dr. Lin to come to the ED for treatment of suspected infection of her R great toe ulceration. R foot ulcer with abscess -CT atrophy of the ab/pelv and b/l LE noted a small 6mm rim-enhancing subcutaneous fluid collection along the plantar medial aspect of the R first metatarsophalangeal joint and adjacent infiltration, consistent with a small abscess -CT also recommending LE arterial Doppler US for evaluation of bilateral calf vessels, ordered -With history of MRSA infection, will want to cover for MRSA as well -In the ED started on Zosyn and Daptomycin empirically, will continue -Blood cultures pending -Wound consulted -Pain control with Dilaudid IV and Tylenol HLD -Continue home Lipitor DM2 -Continue home insulin regiment HTN -Continue home Zestril -Continue home Metroprolol Dispo: Med/Surg FEN: DM2 diet DVT: Lovenox Code: Full History of Present Illness Chief Complaint: R foot pain Primary Care Provider: Vince Vernon, Patient is a 56 year old female with PMHx DM2, HLD, Peripheral Neuropathy, PAD that presents with chief complaint of worsening pain of her R foot and at the recommendation of her Can Feeder Dr. Lin to come to the ED for treatment of suspected infection of her R great toe ulceration. Patient notes that for the past 1 week she has noticed worsening pain and pressure of her R foot. She notes previous amputation of the 2nd digit after ulceration. She notes currently that her toe is terribly painful and that the pain radiates upwards towards her calf as well. She notes a history of MRSA and is concerned about the infection being associated with that. She denies any Fever, headache, NVD, abdominal pain, SOB, chest pain. She does note having chills earlier. In the ED, CT atrophy of the ab/pelv and b/l LE noted a small 6mm rim-enhancing subcutaneous fluid collection along the plantar medial aspect of the R first metatarsophalangeal joint and adjacent infiltration, consistent with a small abscess. Med Hx:DM2, HLD, Peripheral Neuropathy, PAD Surg Hx: R foot 2nd digit amputation, Cardiac cath 2020 Soc Hx: Denies alcohol use. Notes medical marijuana use. Notes cigarette cessation 8 months ago, had been 1PPD x20 years Allergies Allergy/AdvReac Type Severity Reaction Status Date / Time morphine Allergy Severe blisters Verified 07/14/21 20:58 in mouth Sulfa (Sulfonamide Allergy Severe rash/swelli Verified 07/14/21 20:58 Antibiotics) ng vancomycin Allergy Intermediate YULIYA Verified 07/14/21 20:58 SYNDROME Home Medications Medication Instructions Recorded Confirmed Type aspirin 81 mg tablet,delayed 81 mg PO QAM 10/19/20 07/14/21 History release (Aspirin Low Dose) cyclobenzaprine 10 mg tablet 10 mg PO TID 10/19/20 07/14/21 History nortriptyline 50 mg capsule 100 mg PO HS 10/19/20 07/14/21 History (Pamelor) ropinirole 2 mg tablet 4 mg PO HS 10/19/20 07/14/21 History zolpidem 10 mg tablet (Ambien) 10 mg PO HS 10/19/20 07/14/21 History lancets (OneTouch UltraSoft #100 ea 11/12/20 07/14/21 History Lancets) atorvastatin 40 mg tablet (Lipitor) 40 mg PO HS 01/24/21 07/14/21 History lisinopril 10 mg tablet (Zestril) 10 mg PO QAM 01/24/21 07/14/21 History lorazepam 1 mg tablet (Ativan) 1 mg PO TID #21 tab 01/28/21 07/14/21 Rx albuterol sulfate 90 mcg/actuation 1 puff INHALATION QID PRN 03/05/21 07/14/21 History aerosol inhaler (Proventil HFA) insulin glargine 100 unit/mL (3 40 unit SUBCUT HS 03/05/21 07/14/21 History mL) subcutaneous pen (Basaglar KwikPen U-100 Insulin) insulin lispro 100 unit/mL 10 unit SUBCUT TIDM 03/05/21 07/14/21 History subcutaneous pen (Humalog KwikPen (U-100) Insulin) metoprolol succinate 50 mg 50 mg PO QAM 03/05/21 07/14/21 History tablet,extended release 24 hr (Toprol XL) Past Med/Surg History Medical History Chronic back pain Depression DM2 (diabetes mellitus, type 2) Gastritis GIB (gastrointestinal bleeding) Hyperlipidemia Insulin dependent diabetes mellitus Nonobstructive atherosclerosis of coronary artery Peripheral neuropathy Seizures Surgical History History of cardiac cath done at [facility]; 09/22/19; LM - mild luminal irregularities. LAD - mid 20-30%, distal with myocardial bridge & 30% stenosis. L Cx - mild luminal irregularities. RCA - proximal <30% stenosis; mid/distal vessel mild plaques. PDA - mild luminal irregularities. History of esophagogastroduodenoscopy (EGD) Family History Mother , age 63 Myocardial infarction Father , age 68 or 69 Myocardial infarction Brother S/P CABG (coronary artery bypass graft) Sister Myocardial infarction x 3; she is 57yo Social History Smoking Status: Former smoker Tobacco Type: Cigarettes packs per day: 1; Years Smoked: 20; Cigarettes Per Day: 1 PPD for 20 years; Second Hand Exposure: No; Do You Dip or Chew Tobacco: No; Tobacco Cessation Education Requested by Patient: No Hx Alcohol Use: No Hx Substance Use: Yes Last Used Substance: Unknown Substance Use Type Other:: Pt. 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; 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 How many Children do You have: 3 Other Information That Helps Us Care for You: No other: raising a grandchild as well; lives in [place] Feels Safe at Home: Yes Safety Concerns: Feels Safe At This Time Assistive Devices: None Review of Systems Review of Systems: All systems reviewed & are unremarkable except as noted in Subjective Physical Exam Constitutional: well developed, well nourished and + acute distress Eyes: PERRL, conjunctivae normal, anicteric sclerae ENMT: external ear and nose normal, oropharynx normal Neck: trachea midline, no thyromegaly Respiratory: normal respiratory effort, lungs clear to auscultation Cardiovascular: Rate/Rhythm: regular rate and regular rhythm Heart Sounds: no murmur Gastrointestinal (Abdomen): normal bowel sounds, soft, nontender, no hepatosplenomegaly Musculoskeletal: R foot at the time of this evaluation is wrapped fully without discharge leaking through Patient with significant tenderness to palpation of the foot from the ankle and distal Attending visualization of the foot with ulceration and maceration of the plantar 1st digit without necrotic features Skin: no erythema (R foot 1st digit ) Neurologic: PERRL, EOMI, accommodation nl, no face palsy, no dysarthria Psychiatric: Orientation: alert and oriented x 3 Affect: + anxious affect and + irritable affect Results & Data Results & Data ([facility]) Vital Signs (Past 12 Hours) Vital Signs Temp Pulse Resp BP Pulse Ox 07/14/21 12:47 36.3 C L 74 18 133/77 97 Laboratory Results Laboratory Results - last 24 hr 07/14/21 07/14/21 07/14/21 14:42 14:42 14:42 WBC 16.01 H RBC 4.99 Hgb 13.9 Hct 40.9 MCV 82.0 MCH 27.9 MCHC 34.0 RDW Std Deviation 43.3 RDW Coeff of [place] 14.5 Plt Count 397 MPV 9.8 Immature Gran % (Auto) 0.3 Neut % (Auto) 72.5 Lymph % (Auto) 19.6 [place] % (Auto) 5.7 Eos % (Auto) 1.7 Baso % (Auto) 0.2 Neut # (Auto) 11.60 H Lymph # (Auto) 3.14 [place] # (Auto) 0.92 H Eos # (Auto) 0.27 Baso # (Auto) 0.03 Immature Gran # (Auto) 0.05 H PT 9.7 INR 1.0 Sodium 133 L Potassium 4.1 Chloride 101 Carbon Dioxide 24 Anion Gap 9.0 BUN 12 Creatinine 0.58 L Est Cr Clr Drug Dosing Not Reportable Est GFR ( Amer) 118.6 Est GFR (Non-Af Amer) 102.3 BUN/Creatinine Ratio 21.3 H Glucose 294 H POC Glucose Calcium 9.1 Total Bilirubin 0.4 AST 4 L ALT 21 Alkaline Phosphatase 111 Total Protein 7.5 Albumin 3.7 Globulin 3.8 Albumin/Globulin Ratio 1.0 Urine Color Urine Appearance Urine pH Ur Specific [place] Urine Protein Urine Glucose (UA) Urine Ketones Urine Blood Urine Nitrite Urine Bilirubin Urine Urobilinogen Ur Leukocyte Esterase SARS-CoV-2, RNA, NAAT 07/14/21 07/14/21 07/14/21 15:29 18:30 23:18 WBC RBC Hgb Hct MCV MCH MCHC RDW Std Deviation RDW Coeff of [place] Plt Count MPV Immature Gran % (Auto) Neut % (Auto) Lymph % (Auto) [place] % (Auto) Eos % (Auto) Baso % (Auto) Neut # (Auto) Lymph # (Auto) [place] # (Auto) Eos # (Auto) Baso # (Auto) Immature Gran # (Auto) PT INR Sodium Potassium Chloride Carbon Dioxide Anion Gap BUN Creatinine Est Cr Clr Drug Dosing Est GFR ( Amer) Est GFR (Non-Af Amer) BUN/Creatinine Ratio Glucose POC Glucose 283 H 260 H Calcium Total Bilirubin AST ALT Alkaline Phosphatase Total Protein Albumin Globulin Albumin/Globulin Ratio Urine Color Urine Appearance Urine pH Ur Specific [place] Urine Protein Urine Glucose (UA) Urine Ketones Urine Blood Urine Nitrite Urine Bilirubin Urine Urobilinogen Ur Leukocyte Esterase SARS-CoV-2, RNA, NAAT NEGATIVE 07/14/21 23:25 WBC RBC Hgb Hct MCV MCH MCHC RDW Std Deviation RDW Coeff of [place] Plt Count MPV Immature Gran % (Auto) Neut % (Auto) Lymph % (Auto) [place] % (Auto) Eos % (Auto) Baso % (Auto) Neut # (Auto) Lymph # (Auto) [place] # (Auto) Eos # (Auto) Baso # (Auto) Immature Gran # (Auto) PT INR Sodium Potassium Chloride Carbon Dioxide Anion Gap BUN Creatinine Est Cr Clr Drug Dosing Est GFR ( Amer) Est GFR (Non-Af Amer) BUN/Creatinine Ratio Glucose POC Glucose Calcium Total Bilirubin AST ALT Alkaline Phosphatase Total Protein Albumin Globulin Albumin/Globulin Ratio Urine Color Pending Urine Appearance Pending Urine pH Pending Ur Specific [place] Pending Urine Protein Pending Urine Glucose (UA) Pending Urine Ketones Pending Urine Blood Pending Urine Nitrite Pending Urine Bilirubin Pending Urine Urobilinogen Pending Ur Leukocyte Esterase Pending SARS-CoV-2, RNA, NAAT Diagnostic Findings Impressions Aorta w/Runoff CTA 07/14/21 18:09 CT ATROPHY OF THE ABDOMEN AND PELVIS WITH BILATERAL LOWER EXTREMITY RUNOFF CLINICAL HISTORY: Right leg leg vascular issues, wound. COMPARISON STUDY: CT of the abdomen and pelvis January 24, 2021. TECHNIQUE: Helical axial images of the abdomen and pelvis with bilateral lower extremity runoff were obtained following intravenous injection of 116 cc of Optiray 320 IV. Study was performed during arterial phase. Sagittal and coronal reconstructions were viewed as well as maximal intensity projections on an independent 3-D workstation. Automated exposure control was utilized for the study. A dose lowering technique was utilized adhering to the principles of ALARA. FINDINGS: Lung bases are unremarkable. No pneumatosis, free air or portal venous gas is present. Arterial phase images of liver, spleen, adrenal glands, kidneys and pancreas are unremarkable. There is no significant biliary ductal dilatation status post cholecystectomy. There is no evidence for a bowel obstruction. The caliber and wall thickness of small and large bowel are normal. A mildly enlarged right inguinal lymph node measures 1.9 x 1.2 cm. Postoperative findings within the lumbosacral spine are present. Caliber of the abdominal aorta is normal. There is moderate atherosclerotic plaque. Major branch vessels are patent. The left common iliac and external iliac arteries are patent. There are mild to moderate multifocal stenoses of the left superficial femoral artery. Moderate plaque within this vessel is noted. The left popliteal artery is patent. There is severe stenosis of the proximal left anterior tibial artery. The left calf vessels are suboptimally assessed on this exam as the CT scan are not readily bolus. There is mild stenosis of the distal right external iliac artery. There are mild to moderate multifocal stenoses within the right superficial femoral artery. The right popliteal artery is patent. The right calf vessels are suboptimally assessed on this exam given venous opacification, likely due to shunting. There are moderate multifocal stenosis of the proximal right anterior tibial artery. The right dorsalis pedis is suboptimally assessed but likely patent. The right posterior tibial artery is difficult to assess on this exam. However, this vessel is probably patent. IMPRESSION: 1. Moderate aortoiliac and bilateral lower extremity atherosclerotic plaque. 2. Mild stenosis of the distal right external iliac artery. Mild to moderate multifocal stenoses within the bilateral superficial femoral arteries. 3. Suboptimal evaluation of the bilateral calf vessels, as described above. Severe stenosis of the proximal left anterior tibial artery and moderate stenoses of the proximal right anterior tibial artery. Further evaluation with lower extremity arterial Doppler ultrasound is recommended. 4. No acute process within the abdomen or pelvis. 5. Mildly enlarged right inguinal lymph node which is likely reactive. ACT 112: Negative or not required by law. Electronically signed by: Wilver Powell M.D. 07/14/2021 7:32 PM Supervising Physician Co-Signing Physician Notes Patient seen and examined, chart reviewed, case discussed with Dr. Lopez and I agree with the assessment and plan as above. In brief, patient is a 56yo female presenting at request of Dr. Lin for right great toe ulceration, increased pain, abscess noted on the first metatarsophalangeal joint Patient non-toxic in appearance, afebrile, HD stable, in significant pain Skin - great toe ulceration with serous drainage, no bleeding, no purulence, tenderness to palpation of foot HEENT -NC/AT PERRL, MMM Heart - +S21/S2, regular Lungs - CTA Abd - +BS, soft, NT/ND Ext - No edema Labs and images reviewed. Assessment/Plan -CTA, arterial doppler ordered -Daptomycin/Vancomycin - ?treatment with reimaging. -Wound consult -Remainder of plan as above Resident Activity Tracking Resident Involvement: Resident Care Provided Care Provided: Adult Hospital Medicine
[2021-07-14] MEDS ORDERED: HYDROmorphone INJ 0.5 MG/0.5 ML SYR IV PRN ×2 (23:02)
[2021-07-14] MEDS ORDERED: ALBUTEROL HFA 8 GM INHALER INH PRN (23:02)
[2021-07-14] MEDS ORDERED: ONDANSETRON INJ 2 MG/ML 2 ML VIAL IV PRN (23:02)
[2021-07-14] MEDS ORDERED: ENOXAPARIN INJ 40 MG/0.4 ML SYR SQ SCH (23:02)
[2021-07-14 23:44] LABS: Appearance Urine Clear (Clear); Bacteria Urine Automated Negative (Negative); Bilirubin Urine Negative (Negative); Blood Urine Negative (Negative); Color Urine Yellow; Epithelial Cell Urine Auto >30 /lpf (0-5); Glucose Urine UA 2+ (Negative); Ketones Urine Negative (Negative); Leukocyte Esterase Urine Negative (Negative); Nitrite Urine Negative (Negative); Protein Urine Trace (Negative); Urobilinogen Urine Negative (Negative); WBC Urine Automated >30 /hpf (0-5)
[2021-07-14] MEDS ORDERED: DAPTOmycin 350 MG in SYRINGE 0 ML IV SCH (23:45)
[2021-07-15] MEDS ORDERED: HYDROmorphone INJ 0.5 MG/0.5 ML SYR ONE (00:05)
[2021-07-15 00:36] LABS: Specific Gravity Urine > 1.030 (1.000-1.030)
[2021-07-15 00:48] LABS: Cast Urine Automated 0 /lpf (0-5); RBC Urine Automated 0-4 /hpf (0-4)
[2021-07-15] MEDS ORDERED: FLUARIX QUADRIVALENT 0.5 ML SYR IM ONE (00:50)
[2021-07-15] MEDS: INSULIN GLARGINE SOLOSTAR 100 UNITS/ML 3 ML PEN SQ SCH ×2 (01:24→21:29)
[2021-07-15] MEDS: INSULIN ASPART 100 UNITS/ML 3 ML PEN SC SCH ×5 (01:25→21:28)
[2021-07-15] MEDS: ACETAMINOPHEN 325 MG TAB PO PRN (01:27)
[2021-07-15] MEDS ORDERED: HYDROmorphone INJ 1 MG/ML SYRINGE IV STA (04:34)
--- NOTE | 2021-07-15 04:44 | Billing Data ---
Date of Service July 14, 2021 Coding Level of Care Code 34851 Initial Inpt Care Lvl 2
[2021-07-15] MEDS: PIPERACILLIN/TAZOBACTAM 3.375 GM in DEXTROSE 5% 100 ML IV SCH ×3 (05:04→21:25)
[2021-07-15 06:09] LABS: Basophils # (auto) 0.04 K/uL (0-0.2); Basophils % (auto) 0.3 %; Eosinophils # (auto) 0.37 K/uL (0-0.5); Eosinophils % (auto) 2.8 %; Hematocrit (blood only) 40.2 % (37-47); Hemoglobin 13.4 g/dL (12.0-16.0); Immature Granulocytes # (auto) 0.03 K/uL (0.00-0.02); Immature Granulocytes % (auto) 0.2 %; Lymphocytes # (auto) 3.65 K/uL (1.2-3.4); Mean Corpuscular Hemoglobin 27.5 pg (25-34); Mean Corpuscular Hgb Conc 33.3 g/dL (32-36); Mean Corpuscular Volume 82.4 fL (80-100); Monocytes % (auto) 9.2 %; Neutrophils # (auto) 7.75 K/uL (1.4-6.5); Neutrophils % (auto) 59.5 %; Platelet Count 372 K/uL (130-400); RDW Coefficient of Variation 14.3 % (11.5-14.5); RDW Standard Deviation 42.7 fL (36.4-46.3); Red Blood Count 4.88 M/uL (4.2-5.4); White Blood Count 13.04 K/uL (4.8-10.8)
[2021-07-15 06:32] LABS: Albumin Level 3.4 gm/dl (3.4-5.0); BUN Creatinine Ratio 19.8 (10-20); Calcium 9.2 mg/dl (8.5-10.1); Creatinine Clr Calc Pharmacy 109.1 ml/min; Est GFR (African American) 123.7 ml/min; Est GFR (Non-African American) 106.7 ml/min; Potassium 3.5 mmol/L (3.5-5.1)
[2021-07-15 06:34] LABS: Albumin Globulin Ratio 0.9 (0.9-2); Bilirubin,Total 0.3 mg/dl (0.2-1); Globulin 3.7 gm/dl (2.5-4.0); Total Protein 7.1 gm/dl (6.4-8.2)
--- NOTE | 2021-07-15 07:08 | Ultrasound Report ---
US arterial duplex LE BI CLINICAL HISTORY: severe stenosis b/l calf vessels, R foot abscess. COMPARISON: None. TECHNIQUE: Duplex sonography of lower extremity arterial system bilaterally was performed. Velocity measurements provided are in centimeters per second FINDINGS: Guevara scale, Doppler spectral analysis, and color imaging performed. Right common femoral artery: Triphasic flow velocity. 145 Right profunda femoris artery: Biphasic flow velocity. 81 Right superficial femoral artery: Triphasic flow velocity. 256 within the proximal SFA Right popliteal artery: Triphasic flow velocity. 139 Right posterior tibial artery: Monophasic flow velocity. 135 Right anterior tibial artery: Monophasic flow velocity. 285 approximately Right dorsalis pedis artery: Not visualized due to wounds. Right peroneal artery: Monophasic flow velocity. 52 Right flow velocities: There is marked segmental elevation in flow velocity involving the SFA approx imately in the KERLINE approximately characteristic of high-grade stenosis. Left common femoral artery: Biphasic flow velocity. 148 Left profunda femoris artery:Biphasic flow velocity. 144 Left superficial femoral artery: Biphasic flow velocity. 201 approximately 220 in the mid SFA Left popliteal artery: Biphasic flow velocity. 65 Left posterior tibial artery: Biphasic flow velocity. 61 Left anterior tibial artery: Biphasic flow velocity. 304 approximately Left dorsalis pedis artery: Biphasic flow velocity. 25 Left peroneal artery: Biphasic flow velocity. 81 Left flow velocities: Marked segmental elevation in flow velocity is seen within the proximal and mi d SFA and within the KERLINE characteristic of high-grade stenosis. IMPRESSION: Patent arterial flow bilaterally. However, there is evidence for high-grade stenosis bila terally as described above. ACT 112: Negative or not required by law. Electronically signed by: Jaylon Connell M.D. 07/15/2021 7:06 AM
[2021-07-15] MEDS ORDERED: lisinopril 10 MG TAB PO SCH (09:00)
[2021-07-15 09:28] LABS: Estimated Average Glucose 272 mg/dl; Hemoglobin A1C 11.1 % (4.5-5.6)
[2021-07-15] MEDS: HYDROmorphone INJ 0.5 MG/0.5 ML SYR IV PRN ×3 (09:29→21:30)
[2021-07-15] MEDS: LORazepam 1 MG TAB PO SCH ×3 (09:29→21:25)
[2021-07-15] MEDS: CYCLOBENZAPRINE HCL 10 MG TAB PO SCH ×3 (09:29→21:24)
[2021-07-15] MEDS: METOPROLOL SUCC 50MG EXT REL TAB PO SCH (09:33)
[2021-07-15] MEDS: ASPIRIN 81 MG ECTAB PO SCH (09:34)
[2021-07-15] MEDS ORDERED: ALBUT/IPRATROP 3MG/0.5MG NEB 3 ML VIAL NEB PRN (09:59)
--- NOTE | 2021-07-15 10:40 | Vascular Medicine ProgressNote ---
Date of Service July 15, 2021 Assessment & Plan (1) PAD (peripheral artery disease): Plan: 2. RT toe ulcer/abscess 3. Insulin-dependent diabetes 4. Nonobstructive coronary disease 5. History of tobacco use 6. Dyslipidemia Reviewed vascular imagingright leg with mild to moderate iliac/SFA disease. Severe KERLINE disease. Toe pressures pending. On exam right foot well perfused with bounding pedal pulses, normal capillary refill. Copious bleeding from toe wound. Previously healed second toe amputation surgical wound. Do not feel toe wounds are secondary to ischemia or emboli. Arterial perfusion adequate for wound healing and surgical wound healing if great toe amputation required. No need for additional invasive vascular testing/revascularization. Continue antibiotics, wound care and ASCVD risk factor modification. Orthopedic consult pending. Appreciate ED/hospital medicine care. Admission and Anticipated Discharge Date Admission Date: July 14, 2021 Subjective Feeling more comfortable this morning. Mild nausea. Review of Systems Review of Systems: All systems reviewed & are unremarkable except as noted in HPI & below Physical Exam Physical Exam: General: No acute distress HEENT: Sclerae anicteric. Lungs: Clear to auscultation bilaterally anteriorly Cardiac: Regular rate and rhythm. No murmurs Extremities/vascular: --Radial 2+ bilaterally --Dp/PT 2+ bilaterally --Right 2nd digit amputation --Right great toe with macerated appearing ulceration. +bleeding. No purulent drainage. Results & Data ([facility]) Vital Signs (Past 12 Hours) Vital Signs Temp Pulse Resp BP Pulse Ox 07/15/21 09:00 98.1 F 90 20 194/102 H 98 07/15/21 03:13 99 H 18 127/81 97 07/14/21 23:02 98.1 F 18 182/99 H 97 PG Care Time/CCT Total # of Minutes Spent Total Time Spent with Patient: Total time spent is greater than 50% in coordination of care (as documented) at patient's floor/unit and/or counseling patient: Coding Level of Care Code 07774 Subseq Hosp Care Lvl 3 Diagnoses PAD (peripheral artery disease) I73.9
--- NOTE | 2021-07-15 11:13 | Ultrasound Report ---
US ankle/brachial index ltd CLINICAL HISTORY: Peripheral arterial disease. COMPARISON STUDY: CT angiogram with runoff 07/14/2021. FINDINGS: The right ankle-brachial index with the dorsalis pedis artery is 0.65 and the posterior tib ial artery of 0.96. The left ankle-brachial index with the dorsalis pedis artery is 1.0 and the poste rior tibial artery was 1.1. Bilateral toe brachial indices measure 1.4 on the right and 1.1 on the le ft. IMPRESSION: 1. Normal left ankle-brachial indices measuring between 1.0 and 1.1. 2. Abnormally low right ankle-brachial index measured with the dorsalis pedis artery measuring 0.65. ACT 112: Negative or not required by law. Electronically signed by: Ernst Murray M.D. 07/15/2021 11:12 AM
--- NOTE | 2021-07-15 12:53 | Hospitalist Progress Note ---
Date of Service July 15, 2021 Assessment & Plan (1) Toe ulcer, right: Plan: Patient is a 56 year old female with PMHx DM2, HLD, Peripheral Neuropathy, PAD that presents with chief complaint of worsening pain of her R foot and at the recommendation of her Spanish Professor Dr. Lin to come to the ED for treatment of suspected infection of her R great toe ulceration. R foot ulcer with abscess -CT atrophy of the ab/pelv and b/l LE noted a small 6mm rim-enhancing subcutaneous fluid collection along the plantar medial aspect of the R first metatarsophalangeal joint and adjacent infiltration, consistent with a small abscess -CT also recommending LE arterial Doppler US for evaluation of bilateral calf vessels: Revealed stenosis of of some of the vasculature bilaterally without DVT. -With history of MRSA infection, will want to cover for MRSA as well -In the ED started on Zosyn and Daptomycin empirically, will continue -Blood cultures pending -Wound care, vascular, and ortho consulted -Ortho placed order for MRI of right foot, likely to perform irrigation and debridement this weekend. -Vascular seems to think that blood flow was not likely the primary cause of present ulcer. -Pain control with Dilaudid IV and Tylenol PAD -Dr. Lin ordered a brachial ankle index which revealed a right ratio of 0.69 indicative of peripheral artery disease -Will follow vascular's recommendations. HLD -Continue home Lipitor DM2 -Continue home insulin regiment -Will make adjustments to insulin regimen for blood sugar goal between 100-150 for AM BG. HTN -Continue home Zestril -Continue home Metroprolol Dispo: Med/Surg FEN: DM2 diet DVT: Lovenox Code: Full Admission and Anticipated Discharge Date Admission Date: July 14, 2021 Supervising Physician Co-Signing Physician Notes Patient seen and examined with PGY 1, Dr. Pacheco. Agree with history, exam findings, assessment and plan of care as outlined. In brief, Ms. Witt is a 56-year-old female with history of peripheral artery disease and uncontrolled diabetes admitted with a right great toe ulcer with abscess. She reports that she continues to have pain in the right great toe. Has not been feeling well since she has noticed that the skin overlying the great toe has been peeling "like an onion". Vital signs and nursing notes reviewed. She is nontoxic-appearing. Right great toe is erythematous with underlying subcutaneous tissue visible. Not able to see the bone. +2 dorsal pedis pulses. +2 posterior tibial pulse. +2 popliteal pulse. Labs and imaging reviewed. 1. Right great toe ulcer with abscess in the setting of uncontrolled diabetes and peripheral artery disease. White count is downtrending. Blood cultures pending. Continue with Zosyn and Dapto. MRI of the right foot is pending to evaluate for osteomyelitis. Wound care consult placed. 2. Peripheral artery disease. Recent vascular imaging showed mild to moderate iliac/SFA disease and severe KERLINE disease. Continue aspirin and Lipitor. 3. Type 2 diabetes. Last hemoglobin A1c in January was 10.2%. Continue with basal bolus insulin dosing. Lantus 40 units nightly with sliding scale insulin. 4. Hypertension. Continue lisinopril and metoprolol. Subjective Patient seen at bedside this morning. Patient is pleasant 56-year-old female presents to the hospital due to right great toe nonhealing ulcer. She reports for the past 2 weeks she has had increasing erythema and scaling of her great toe resulting in the present infection. She cannot remember the last time that she actually felt "good ". She is a long history of uncontrolled diabetes with last known A1c of 10.3. Today she is reporting that she is feeling somewhat nauseous and weak. She has not actively vomited. She denies having fever, chills, shortness of breath, or chest pain. She reports that she has had pain that radiates from her toe leg to her calf, but has been well controlled with the Dilaudid she has been receiving in the hospital. At this time Dr. Lin had stopped by and discussed care with her. Patient has no other complaints at this time Review of Systems Review of Systems: All systems reviewed & are unremarkable except as noted in HPI & below Physical Exam Constitutional: well developed and well nourished; no acute distress Eyes: + anicteric sclerae Neck: normal visual inspection and trachea midline Respiratory: normal respiratory effort Auscultation: + rhonchi and + wheezes Cardiovascular: RRR, no murmur, no edema Palpation: normal PMI Vessels: no JVD Gastrointestinal (Abdomen): normal bowel sounds, soft, nontender, no hepatosplenomegaly Musculoskeletal: Previous second right toe amputation that is well healed. Skin: There is an erythematous, weeping ulcer at the distal aspect of the right great toe with swelling and warmth to the touch of the metatarsophalangeal joint. Neurologic: moves all extremities Psychiatric: A+Ox3, euthymic affect Results & Data Results & Data ([facility]) Vital Signs (Past 12 Hours) Vital Signs Temp Pulse Resp BP Pulse Ox 07/15/21 09:00 36.7 C 90 20 194/102 H 98 07/15/21 03:13 99 H 18 127/81 97
[2021-07-15] MEDS: lisinopril 10 MG TAB PO STA ×2 (14:03→19:15)
--- NOTE | 2021-07-15 15:05 | Orthopedic Consultation ---
Date of Consultation July 15, 2021 Assessment & Plan (1) Cellulitis: Continue current antibiotics. Dr. Montaño to review CTA of the lower extremities as well as an order has been placed for MRI of the right foot. Dressing changes as needed. Possibility of irrigation and debridement this weekend pending further evaluation by Dr. Montaño. History of Present Illness Reason for Consultation: Infection left great toe Attending Physician: Kali Zamora DO History of Present Illness Patient is a 56 year old female with PMHx DM2, HLD, Peripheral Neuropathy, PAD that presents with chief complaint of worsening pain of her R foot. Patient states with her diabetes, that she has had some foot issues in the past. She had her second toe amputated last March in the [facility]. She states approximate 3 weeks ago she began having some discomfort and redness in the right great toe. The toe began having some drainage and noted that that the skin began peeling off of it. This continued to worsen as she began having increasing pain in the great toe that began to radiate up the foot into the leg. She had contacted Dr. Lin who recommended she come to the emergency room. During her admission, CTA of the lower extremities was ordered and incidentally found a 6 mm fluid enhanced area at the first MTP joint on the plantar aspect. She was thusly admitted and started on IV antibiotics. Dr. Lin has seen the patient today and after reviewing ABIs, and arterial duplex felt that this was secondary to infection rather than ischemia. We have been asked to evaluate her right great toe. Allergies Allergy/AdvReac Type Severity Reaction Status Date / Time morphine Allergy Severe blisters Verified 07/14/21 20:58 in mouth Sulfa (Sulfonamide Allergy Severe rash/swelli Verified 07/14/21 20:58 Antibiotics) ng vancomycin Allergy Intermediate YULIYA Verified 07/14/21 20:58 SYNDROME Home Medications Medication Instructions Recorded Confirmed Type aspirin 81 mg tablet,delayed 81 mg PO QAM 10/19/20 07/14/21 History release (Aspirin Low Dose) cyclobenzaprine 10 mg tablet 10 mg PO TID 10/19/20 07/14/21 History nortriptyline 50 mg capsule 100 mg PO HS 10/19/20 07/14/21 History (Pamelor) ropinirole 2 mg tablet 4 mg PO HS 10/19/20 07/14/21 History zolpidem 10 mg tablet (Ambien) 10 mg PO HS 10/19/20 07/14/21 History lancets (OneTouch UltraSoft #100 ea 11/12/20 07/14/21 History Lancets) atorvastatin 40 mg tablet (Lipitor) 40 mg PO HS 01/24/21 07/14/21 History lisinopril 10 mg tablet (Zestril) 10 mg PO QAM 01/24/21 07/14/21 History lorazepam 1 mg tablet (Ativan) 1 mg PO TID #21 tab 01/28/21 07/14/21 Rx albuterol sulfate 90 mcg/actuation 1 puff INHALATION QID PRN 03/05/21 07/14/21 History aerosol inhaler (Proventil HFA) insulin glargine 100 unit/mL (3 40 unit SUBCUT HS 03/05/21 07/14/21 History mL) subcutaneous pen (Basaglar KwikPen U-100 Insulin) insulin lispro 100 unit/mL 10 unit SUBCUT TIDM 03/05/21 07/14/21 History subcutaneous pen (Humalog KwikPen (U-100) Insulin) metoprolol succinate 50 mg 50 mg PO QAM 03/05/21 07/14/21 History tablet,extended release 24 hr (Toprol XL) Patient History Medical History Chronic back pain Depression DM2 (diabetes mellitus, type 2) Gastritis GIB (gastrointestinal bleeding) Hyperlipidemia Insulin dependent diabetes mellitus Nonobstructive atherosclerosis of coronary artery Peripheral neuropathy Seizures Surgical History History of cardiac cath done at [facility]; 09/22/19; LM - mild luminal irregularities. LAD - mid 20-30%, distal with myocardial bridge & 30% stenosis. L Cx - mild luminal irregularities. RCA - proximal <30% stenosis; mid/distal vessel mild plaques. PDA - mild luminal irregularities. History of esophagogastroduodenoscopy (EGD) Family History Mother , age 63 Myocardial infarction Father , age 68 or 69 Myocardial infarction Brother S/P CABG (coronary artery bypass graft) Sister Myocardial infarction x 3; she is 57yo Social History Smoking Status: Former smoker Tobacco Type: Cigarettes packs per day: 1; Years Smoked: 20; Cigarettes Per Day: 1 PPD for 20 years; Second Hand Exposure: No; Hx Alcohol Use: No Hx Substance Use: Yes Last Used Substance: Unknown Substance Use Type Other:: Pt. 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 Well-developed well-nourished, no acute distress, pleasant cooperative. On examination of her right great toe, the distal tip as well as almost half of the plantar surface distal section of her skin has been peeled away. She has a small area on the distal medial aspect that appears to be ulcerative. There is no foul odor. She is some mild bleeding around this area. She has moderate pain on palpation of the great toe and also continues to have pain on palpation over the dorsum of the foot to the ankle. Pedal pulses are intact. She also has a small skin crack at the area of her second toe amputation that has some mild bleeding as well. She is able to take her ankle through range of motion. Holley Hutchinson is present from wound care. Plans are to dress the wound at this time. Results & Data ([facility]) Vital Signs (Past 12 Hours) Vital Signs Temp Pulse Resp BP Pulse Ox 07/15/21 12:52 147/75 H 07/15/21 09:00 36.7 C 90 20 194/102 H 98 07/15/21 03:13 99 H 18 127/81 97 Diagnostic Findings [facility], [place] [phone] CT Scan Report Patient:EILEEN ESCOBAR Admit Date:07/14/21 MR#:[id number] Address1:[address] Acct ID:[id number] Address2: Date:1965 [facility] Zip:[place] [address] Age:56 Location:ED Sex:F Room/Bed: Att Phy: Diagnosis:OPEN WOUND ON TOE,REF BY CARDIO DOC Ana Maria Phy:Vince Vernon DO Service Date:07/14/21 [facility] Phy: Interpreting Phy:Wilver Powell MDAdmit Phy: Ordering Phy:Mathew Decker MD cc: ~ ADDENDUM Addendum: Note is made of a small 6 mm rim-enhancing subcutaneous fluid collection along the plantar medial aspect of the right first metatarsophalangeal joint. There is adjacent infiltration. This is consistent with a small abscess. There is no soft tissue gas. There is no CT evidence for acute osteomyelitis within the right first toe. Electronically signed by: Wilver Powell M.D. 07/14/2021 7:[address] ATROPHY OF THE ABDOMEN AND PELVIS WITH BILATERAL LOWER EXTREMITY RUNOFF CLINICAL HISTORY: Right leg leg vascular issues, wound. COMPARISON STUDY: CT of the abdomen and pelvis January 24, 2021. TECHNIQUE: Helical axial images of the abdomen and pelvis with bilateral lower extremity runoff were obtained following intravenous injection of 116 cc of Optiray 320 IV. Study was performed during arterial phase. Sagittal and coronal reconstructions were viewed as well as maximal intensity projections on an independent 3-D workstation. Automated exposure control was utilized for the study. A dose lowering technique was utilized adhering to the principles of ALARA. FINDINGS: Lung bases are unremarkable. No pneumatosis, free air or portal venous gas is present. Arterial phase images of liver, spleen, adrenal glands, kidneys and pancreas are unremarkable. There is no significant biliary ductal dilatation status post cholecystectomy. There is no evidence for a bowel obstruction. The caliber and wall thickness of small and large bowel are normal. A mildly enlarged right inguinal lymph node measures 1.9 x 1.2 cm. Postoperative findings within the lumbosacral spine are present. Caliber of the abdominal aorta is normal. There is moderate atherosclerotic plaque. Major branch vessels are patent. The left common iliac and external iliac arteries are patent. There are mild to moderate multifocal stenoses of the left superficial femoral artery. Moderate plaque within this vessel is noted. The left popliteal artery is patent. There is severe stenosis of the proximal left anterior tibial artery. The left calf vessels are suboptimally assessed on this exam as the CT scan are not readily bolus. There is mild stenosis of the distal right external iliac artery. There are mild to moderate multifocal stenoses within the right superficial femoral artery. The right popliteal artery is patent. The right calf vessels are suboptimally assessed on this exam given venous opacification, likely due to shunting. There are moderate multifocal stenosis of the proximal right anterior tibial artery. The right dorsalis pedis is suboptimally assessed but likely patent. The right posterior tibial artery is difficult to assess on this exam. However, this vessel is probably patent. IMPRESSION: 1. Moderate aortoiliac and bilateral lower extremity atherosclerotic plaque. 2. Mild stenosis of the distal right external iliac artery. Mild to moderate multifocal stenoses within the bilateral superficial femoral arteries. 3. Suboptimal evaluation of the bilateral calf vessels, as described above. Severe stenosis of the proximal left anterior tibial artery and moderate stenoses of the proximal right anterior tibial artery. Further evaluation with lower extremity arterial Doppler ultrasound is recommended. 4. No acute process within the abdomen or pelvis. 5. Mildly enlarged right inguinal lymph node which is likely reactive.
[2021-07-15] MEDS ORDERED: GADOBUTROL 65ML VIAL IV ONE (20:35)
[2021-07-15] MEDS: NORTRIPTYLINE HCL 25 MG CAP PO SCH (21:24)
[2021-07-15] MEDS: ATORVASTATIN 40 MG TAB PO SCH (21:24)
[2021-07-15] MEDS: rOPINIRole HCL 2 MG TABLET PO SCH (21:25)
[2021-07-15] MEDS: ENOXAPARIN INJ 40 MG/0.4 ML SYR SQ SCH (21:26)
[2021-07-15] MEDS: ZOLPIDEM TARTRATE 10 MG TAB PO SCH (22:00)
--- NOTE | 2021-07-15 22:06 | Magnetic Resonance Report ---
MRI OF THE RIGHT FOREFOOT COMBO CLINICAL HISTORY: First toe infection. COMPARISON STUDY: No priors. TECHNIQUE: MRI of the right forefoot is performed utilizing various T1 and T2-weighted images in the axial, sagittal, and coronal planes. Contrast-enhanced sequences are acquired following the IV admini stration of 6.6 mL of Gadavist. Note that interpretation is significantly suboptimal without plain fi lm correlate. FINDINGS: There has been amputation of the second toe at the level of the metatarsophalangeal joint. Question minimal marrow edema versus failure of fat suppression in the tuft of the first distal phala nx. There is no corresponding signal abnormality on the T1-weighted sequences, and no convincing MRI evidence of osteomyelitis. No bony erosion or destructive change is seen. Normal marrow signal intens ity is otherwise preserved of the visualized bony structures. Mild degenerative change is present at the first metatarsophalangeal joint. The visualized flexor and extensor tendons appear intact. A meta llic foreign body is suggested along the plantar aspect of the foot at the level of the second metata rsal head. The regional musculature is normal as visualized. Mild soft tissue edema is seen adjacent to the amputation site in the second toe. No organized fluid collection is identified. Imaged portion s of the plantar fascia are normal in appearance. IMPRESSION: 1. There is minimal marrow edema versus failure of fat suppression involving the tuft of the first di stal phalanx. Correlate clinically for evidence of a nonspecific osteitis. There is no marrow abnorma lity on the T1-weighted sequences, and no destructive change/erosion to indicate osteomyelitis. 2. Status post amputation of the second toe as above. 3. Mild soft tissue edema is seen at the amputation site. No organized fluid collection is identified to indicate abscess. 4. A metallic foreign body is identified within the plantar soft tissues at the level of the second m etatarsal head. Dictated: 07/15/2021 9:04 PM Transcribed: 07/15/2021 9:28 PM Arianna [id number] ARIAN_Federica Electronically signed by: Finn Bradshaw M.D. 07/15/2021 10:05 PM
[2021-07-16] MEDS: DAPTOmycin 300 MG in SYRINGE 0 ML IV SCH (01:14)
[2021-07-16] MEDS: HYDROmorphone INJ 0.5 MG/0.5 ML SYR IV PRN ×6 (01:20→23:09)
[2021-07-16] MEDS: PIPERACILLIN/TAZOBACTAM 3.375 GM in DEXTROSE 5% 100 ML IV SCH ×3 (04:47→20:20)
[2021-07-16] MEDS: INSULIN ASPART 100 UNITS/ML 3 ML PEN SC SCH ×5 (06:29→20:21)
--- NOTE | 2021-07-16 06:39 | Anesthesiology Consultation ---
Date of Service July 16, 2021 Assessment & Plan Chart Review Chart Review: Acceptable Risk for Surgery and Patient NOT seen in Pre Admission Testing Consults Requested none ASA ASA4 Proposed Anesthesia Anesthesia Type: General History Surgery Operation Date: 07/16/21 11:00 Proposed Procedures p Incision and Drainage Extremity Right Foot Abcess(Right) - Akhil Montaño DO Height/Weight Height: 5 ft 2 in Weight: 66.8 kg Allergies Allergy/AdvReac Type Severity Reaction Status Date / Time morphine Allergy Severe blisters Verified 07/14/21 20:58 in mouth Sulfa (Sulfonamide Allergy Severe rash/swelli Verified 07/14/21 20:58 Antibiotics) ng vancomycin Allergy Intermediate YULIYA Verified 07/14/21 20:58 SYNDROME Medications Home Medications Medication Instructions Recorded Confirmed Last Taken aspirin 81 mg tablet,delayed 81 mg PO QAM 10/19/20 07/14/21 07/11/21 release (Aspirin Low Dose) cyclobenzaprine 10 mg tablet 10 mg PO TID 10/19/20 07/14/21 07/11/21 nortriptyline 50 mg capsule 100 mg PO HS 10/19/20 07/14/21 07/11/21 (Pamelor) ropinirole 2 mg tablet 4 mg PO HS 10/19/20 07/14/21 07/11/21 zolpidem 10 mg tablet (Ambien) 10 mg PO HS 10/19/20 07/14/21 07/11/21 lancets (OneTouch UltraSoft #100 ea 11/12/20 07/14/21 Unknown Lancets) atorvastatin 40 mg tablet (Lipitor) 40 mg PO HS 01/24/21 07/14/21 07/11/21 lisinopril 10 mg tablet (Zestril) 10 mg PO QAM 01/24/21 07/14/21 07/11/21 lorazepam 1 mg tablet (Ativan) 1 mg PO TID #21 tab 01/28/21 07/14/21 07/11/21 albuterol sulfate 90 mcg/actuation 1 puff INHALATION QID PRN 03/05/21 07/14/21 03/05/21 aerosol inhaler (Proventil HFA) insulin glargine 100 unit/mL (3 40 unit SUBCUT HS 03/05/21 07/14/21 07/11/21 mL) subcutaneous pen (Basaglar KwikPen U-100 Insulin) insulin lispro 100 unit/mL 10 unit SUBCUT TIDM 03/05/21 07/14/21 07/11/21 subcutaneous pen (Humalog KwikPen (U-100) Insulin) metoprolol succinate 50 mg 50 mg PO QAM 03/05/21 07/14/21 07/11/21 tablet,extended release 24 hr (Toprol XL) Active Medications Generic Name Dose Route Start Last Admin Trade Name Freq PRN Reason Stop Dose Admin Acetaminophen 650 mg 07/14/21 23:02 07/15/21 01:27 Acetaminophen 325 Mg Tab PO 08/13/21 23:01 650 mg Q4H PRN Administration pain/fever Aspirin 81 mg 07/15/21 09:00 07/15/21 09:34 Aspirin 81 Mg Ectab PO 08/14/21 08:59 81 mg QAM RICKY Administration Atorvastatin Calcium 40 mg 07/15/21 21:00 07/15/21 21:24 Atorvastatin 40 Mg Tab PO 08/14/21 20:59 40 mg HS RICKY Administration Cyclobenzaprine HCl 10 mg 07/15/21 09:00 07/15/21 21:24 Cyclobenzaprine Hcl 10 Mg Tab PO 08/14/21 08:59 10 mg TID RICKY Administration Enoxaparin Sodium 40 mg 07/15/21 21:00 07/15/21 21:26 Enoxaparin Inj 40 Mg/0.4 Ml Syr SQ 08/13/21 23:01 40 mg HS RICKY Administration Hydromorphone HCl 1 mg 07/15/21 04:35 07/16/21 04:46 Hydromorphone Inj 0.5 Mg/0.5 Ml Syr IV 07/28/21 23:01 1 mg Q3H PRN Administration Pain (6,7,8,9,10) Hydromorphone HCl 0.5 mg 07/15/21 04:35 07/15/21 14:19 Hydromorphone Inj 0.5 Mg/0.5 Ml Syr IV 07/28/21 23:01 0.5 mg Q3H PRN Administration Pain (1,2,3,4,5) & Pre PT Piperacillin Sod/Tazobactam 115 mls @ 28.75 mls/hr 07/15/21 05:00 07/16/21 04:47 Sod 3.375 gm/ Dextrose IV 07/17/21 04:59 28.8 mls/hr Q8H RICKY Administration Protocol Daptomycin 300 mg/ Syringe 6 mls @ 3 mls/min 07/16/21 00:00 07/16/21 01:14 IV 07/18/21 00:00 3 mls/min Q24H RICKY Administration Protocol Insulin Aspart 0 units 07/16/21 06:00 07/16/21 06:29 Insulin Aspart 100 Units/Ml 3 Ml Pen SC 08/15/21 05:59 Not Given Q6 RICKY Insulin Glargine 40 units 07/15/21 01:00 07/15/21 21:29 Insulin Glargine Solostar 100 Units/Ml 3 Ml Pen SQ 08/14/21 00:59 40 units HS RICKY Administration Lorazepam 1 mg 07/15/21 09:00 07/15/21 21:25 Lorazepam 1 Mg Tab PO 08/14/21 08:59 1 mg TID RICKY Administration Metoprolol Succinate 50 mg 07/15/21 09:00 07/15/21 09:33 Metoprolol Succ 50mg Ext Rel Tab PO 08/14/21 08:59 50 mg QAM RICKY Administration Nortriptyline HCl 100 mg 07/15/21 21:00 07/15/21 21:24 Nortriptyline Hcl 25 Mg Cap PO 08/14/21 20:59 100 mg HS RICKY Administration Ropinirole HCl 4 mg 07/15/21 21:00 07/15/21 21:25 Ropinirole Hcl 2 Mg Tablet PO 08/14/21 20:59 4 mg HS RICKY Administration Zolpidem Tartrate 10 mg 07/15/21 21:00 07/15/21 22:00 Zolpidem Tartrate 10 Mg Tab PO 08/14/21 20:59 10 mg HS RICKY Administration NPO Date Last Intake of Fluids: 07/15/21 Time Last Intake of Fluids: 23:59 Date Last Intake of Solids: 07/15/21 Time Last Intake of Solids: 23:59 Past Medical History Medical History Chronic back pain Depression DM2 (diabetes mellitus, type 2) Gastritis GIB (gastrointestinal bleeding) Hyperlipidemia Insulin dependent diabetes mellitus Nonobstructive atherosclerosis of coronary artery Peripheral neuropathy Seizures Exercise / Class Metabolic Activity III < 4 Walking/Shop/Light housework Past Family History Family History Mother , age 63 Myocardial infarction Father , age 68 or 69 Myocardial infarction Brother S/P CABG (coronary artery bypass graft) Sister Myocardial infarction x 3; she is 57yo Past Surgical History Surgical History History of cardiac cath done at [facility]; 09/22/19; LM - mild luminal irregularities. LAD - mid 20-30%, distal with myocardial bridge & 30% stenosis. L Cx - mild luminal irregularities. RCA - proximal <30% stenosis; mid/distal vessel mild plaques. PDA - mild luminal irregularities. History of esophagogastroduodenoscopy (EGD) Past Anesthesia History No Hx of Anesthesia Complications and No Family Hx of Anesthesia Complications History of PONV No Hx of PONV and No Hx of Motion Sickness Social History Smoking Status: Former smoker tobacco type: cigarettes Smoking cigarettes per day: 1 PPD for 20 years Do You Dip or Chew Tobacco: No Hx Alcohol Use: No Hx Substance Use: Yes substance use type: marijuana Substance Use Type Other:: Pt. uses medical marijuana Last Used Substance: Unknown Physical Exam Vital Signs Last Vital Signs Temp 36.9 C 07/15/21 22:20 Pulse 88 07/15/21 22:20 Resp 17 07/15/21 22:20 BP 155/76 H 07/15/21 22:20 Pulse Ox 94 07/15/21 22:20 Testing Laboratory Results 07/15/21 05:19 07/15/21 05:19 PT 9.7 Seconds (9.0-12.0) 07/14/21 14:42 INR 1.0 (0.9-1.1) 07/14/21 14:42 Hemoglobin A1c 11.1 % (4.5-5.6) H 07/15/21 Unknown Urine Color Yellow 07/14/21 23:25 Urine Appearance Clear (Clear) 07/14/21 23:25 Urine pH 6.0 (4.5-7.5) 07/14/21 23:25 Ur Specific [place] > 1.030 (1.000-1.030) H 07/14/21 23:25 Urine Protein Trace (Negative) H 07/14/21 23:25 Urine Glucose (UA) 2+ (Negative) H 07/14/21 23:25 Urine Ketones Negative (Negative) 07/14/21 23:25 Urine Nitrite Negative (Negative) 07/14/21 23:25 Ur Leukocyte Esterase Negative (Negative) 07/14/21 23:25 Urine WBC (Auto) >30 /hpf (0-5) H 07/14/21 23:25 Urine RBC (Auto) 0-4 /hpf (0-4) 07/14/21 23:25 U Hyaline Cast (Auto) 0 /lpf (0-5) 07/14/21 23:25 U Epithel Cells (Auto) >30 /lpf (0-5) H 07/14/21 23:25 Urine Bacteria (Auto) Negative (Negative) 07/14/21 23:25 07/14/21 22:55 Aerobic Blood Culture - Preliminary Blood No growth in Aerobic bottle after 24 hours. 07/14/21 22:55 Aerobic Blood Culture - Preliminary Blood No growth in Aerobic bottle after 24 hours. Anaerobic Blood Culture - Preliminary No growth in Anaerobic bottle after 24 hours. 07/16/21 07/15/21 06:24 20:56 POC Glucose 74 148 H Electrocardiogram Date: 03/08/21 Findings: + NSR @ (@ 91) Echocardiogram Date: 01/24/21 EF: 65-70% LV Function: hyperdynam RWMA: + none Other Findings: + LVH and + diastolic dysfunction (grade 1) Valvular Disease: + no significant valvular disease
[2021-07-16] MEDS ORDERED: PHARMACY GLYCEMIC MGMT CONSULT PRN ×2 (08:07→18:17)
[2021-07-16 08:31] LABS: Basophils # (auto) 0.02 K/uL (0-0.2); Basophils % (auto) 0.1 %; Eosinophils # (auto) 0.27 K/uL (0-0.5); Hematocrit (blood only) 39.4 % (37-47); Hemoglobin 13.1 g/dL (12.0-16.0); Immature Granulocytes # (auto) 0.02 K/uL (0.00-0.02); Immature Granulocytes % (auto) 0.1 %; Lymphocytes # (auto) 2.61 K/uL (1.2-3.4); Lymphocytes % (auto) 19.1 %; Mean Corpuscular Hemoglobin 27.7 pg (25-34); Mean Corpuscular Hgb Conc 33.2 g/dL (32-36); Mean Corpuscular Volume 83.3 fL (80-100); Mean Platelet Volume 9.6 fL (7.4-10.4); Monocytes # (auto) 1.04 K/uL (0.11-0.59); Monocytes % (auto) 7.6 %; Neutrophils # (auto) 9.72 K/uL (1.4-6.5); Neutrophils % (auto) 71.1 %; Platelet Count 351 K/uL (130-400); RDW Coefficient of Variation 14.3 % (11.5-14.5); RDW Standard Deviation 44.2 fL (36.4-46.3); Red Blood Count 4.73 M/uL (4.2-5.4); White Blood Count 13.68 K/uL (4.8-10.8)
[2021-07-16 09:01] LABS: BUN Creatinine Ratio 24.8 (10-20); Calcium 8.9 mg/dl (8.5-10.1); Est GFR (African American) 121.4 ml/min; Est GFR (Non-African American) 104.8 ml/min; Potassium 4.1 mmol/L (3.5-5.1)
[2021-07-16] MEDS: METOPROLOL SUCC 50MG EXT REL TAB PO SCH (09:13)
[2021-07-16] MEDS: LORazepam 1 MG TAB PO SCH ×4 (09:13→20:29)
[2021-07-16] MEDS: lisinopril 20 MG TAB PO SCH (09:14)
[2021-07-16] MEDS: CYCLOBENZAPRINE HCL 10 MG TAB PO SCH ×3 (09:14→20:05)
[2021-07-16] MEDS: ASPIRIN 81 MG ECTAB PO SCH (09:14)
[2021-07-16] MEDS ORDERED: LIDOCAINE 2% 2 ML VIAL/AMP(20MG/ML) INFIL ONE (09:35)
[2021-07-16] MEDS ORDERED: PROPOFOL IV EMULSION 10 MG/ML 20 ML VIAL IV ONE ×2 (09:35→10:23)
--- NOTE | 2021-07-16 09:39 | History & Physical Bridge Note ---
Date of Service July 16, 2021 History & Physical Bridge Note I have examined the patient, reviewed the History & Physical and in the interval since the performance of the History & Physical I have noted the following changes of clinical significance: no changes noted
[2021-07-16] MEDS ORDERED: MIDAZOLAM HCL 1 MG/ML 2ML VIAL ONE (09:41)
[2021-07-16] MEDS ORDERED: fentaNYL citrate 100 MCG/2 ML VIAL ONE (09:41)
[2021-07-16] MEDS ORDERED: BUPIVACAINE 0.5 % 5 MG/1 ML MPF 30ML VIAL ONE (09:42)
[2021-07-16] MEDS ORDERED: NALOXONE HCL 0.4 MG/1 ML VIAL/CARP IV PRN ×2 (10:02→11:40)
[2021-07-16] MEDS ORDERED: ONDANSETRON INJ 2 MG/ML 2 ML VIAL IV PRN ×2 (10:02→11:40)
[2021-07-16] MEDS ORDERED: PROMETHAZINE HCL 12.5 MG in SODIUM CHLORIDE 0.9% 50 ML IV PRN (10:02)
[2021-07-16] MEDS ORDERED: LABETALOL HCL IV 5 MG/ML 20ML IV PRN (10:02)
[2021-07-16] MEDS ORDERED: ATROPINE SULFATE 0.1 MG/ML 10ML SYR IV PRN (10:02)
[2021-07-16] MEDS ORDERED: FLUMAZENIL 0.1 MG/1 ML 10 ML VIAL IV PRN (10:02)
[2021-07-16] MEDS ORDERED: fentaNYL citrate 100 MCG/2 ML VIAL IV PRN (10:02)
--- NOTE | 2021-07-16 11:05 | Pharmacy Report ---
Pharmacy Glycemic Short Note 2 - Date of Service July 16, 2021 - Glycemic Short BSG Results (Last 24 hours): 07/15/21 07/15/21 07/15/21 13:06 17:59 20:56 Glucose POC Glucose 75 102 H 148 H 07/16/21 07/16/21 07/16/21 06:24 08:21 09:38 Glucose 75 POC Glucose 74 81 OUTPATIENT ANTIDIABETIC REGIMEN: * Humalog 10 units TIDM * Lantus 40 units HS ASSESSMENT: * 56 y/o F admitted for R foot abscess. Pt with history of Type 2 diabetes managed at home on basal and bolus insulin. * Today, pt underwent I&D of foot abscess. She was NPO this AM. * Patient has been getting basal Lantus and Novolog last 2 days. Pharmacy consulted today for glycemic management. * Lantus 40 units given the last 2 nights. Fasting BSG today = 74 mg/dl. Reduced Lantus dose by 25% for tonight to prevent hypoglycemia in the AM tomorrow. * Novolog parameters based on wt and stress of 3. Plan to loosen CR if BSG trending low. PLAN FOR INPATIENT GLYCEMIC CONTROL: * Basal insulin * Lantus 40 units SQ HS * Bolus insulin * NovoLog per scale ACHS or Q6hrs while NPO * Goal Range: Low 110 mg/dL - High 140 mg/dL * Correction Factor: 25 mg/dL/unit * Nutritional / Prandial insulin per carb ratio of 1 unit per __ grams CHO consumed PLAN FOR DISCHARGE: * TBD
--- NOTE | 2021-07-16 11:31 | Post Operative Brief Note ---
Immediate Post Op Note v1 Date of Surgery July 16, 2021 Pre & Post Diagnosis Operation Date: 07/16/21 11:00 Pre-Op Diagnosis: RIGHT FOOT ABSCESS first metatarsal phalangeal region, osteomyelitis distal phalanx great toe, dystrophic nail plate great toe, diabetic ulceration distal great toe Post-Op Diagnosis: RIGHT FOOT ABSCESS first metatarsal phalangeal region, osteomyelitis distal phalanx great toe, dystrophic nail plate great toe, diabetic ulceration distal great toe I identified the patient and participated in the time-out.: Yes Procedure Operation Date: 07/16/21 11:00 Actual Procedures p Incision and Drainage Extremity Right Foot first metatarsal phalangeal abscess, exostectomy distal phalanx osteomyelitis great toe, debridement diabetic ulceration including skin/subcutaneous tissue 1 cm x 1 cm x 0.1 cm, resection dystrophic Nail Plate Great Toe(Right) - Akhil Montaño DO Surgeon Akhil Montaño DO Visual C Developer Maribell Maki PA-C Estimated Blood Loss 1 Findings Consistent with Post-Op Diagnosis Specimens Abscess right foot first metatarsal phalangeal region Bone right great toe distal phalanx for specimen Anesthesia Type MAC Regional Complications none Disposition Accompanied Patient To Recovery: Yes
[2021-07-16] MEDS ORDERED: MAGNESIUM HYDROXIDE SUSP 30 ML UDC PO PRN (11:40)
[2021-07-16] MEDS ORDERED: METOCLOPRAMIDE HCL INJ 5 MG/ML 2 ML VIAL IV PRN (11:40)
[2021-07-16] MEDS ORDERED: bisacodyL 10 MG SUPP PR PRN (11:40)
--- NOTE | 2021-07-16 11:50 | Anesthesiology Progress Note ---
Date of Service July 16, 2021 Anesthesia Post Procedure Vital Signs Vital Signs: Temp Pulse Pulse Resp BP BP Pulse Ox 07/16/21 11:45 36.5 C 72 18 114/70 96 07/16/21 11:35 36.7 C 72 19 119/75 97 07/16/21 11:25 78 18 121/57 L 98 07/16/21 11:15 77 12 114/69 97 07/16/21 11:05 76 12 102/51 L 100 07/16/21 10:59 36.1 C L 79 16 117/69 100 07/16/21 09:10 88 150/81 H 07/16/21 07:29 37.1 C 85 18 119/71 96 07/15/21 22:20 36.9 C 88 17 155/76 H 94 07/15/21 16:20 36.7 C 80 16 105/69 97 07/15/21 12:52 147/75 H Pain Intensity Right Great Toe: Pain Intensity: 4 Right Foot: Pain Intensity: 6 Transfer of Care Handoff Completed per policy Notes Mental Status: alert / awake / arousable Patient Amnestic to Procedure: Yes Nausea / Vomiting: adequately controlled Pain: adequately controlled Airway Patency, RR, SpO2: stable & adequate BP & HR: stable & adequate Hydration State: stable & adequate Anesthetic Complications: no major complications apparent
--- NOTE | 2021-07-16 11:59 | Pharmacy Report ---
Pharmacy Glycemic Short Note 2 - Date of Service July 16, 2021 - Glycemic Short BSG Results (Last 24 hours): 07/15/21 07/15/21 07/15/21 13:06 17:59 20:56 Glucose POC Glucose 75 102 H 148 H 07/16/21 07/16/21 07/16/21 06:24 08:21 09:38 Glucose 75 POC Glucose 74 81 07/16/21 11:03 Glucose POC Glucose 85 OUTPATIENT ANTIDIABETIC REGIMEN: * Humalog 10 units TIDM * Lantus 40 units HS ASSESSMENT: * 56 y/o F admitted for R foot abscess. Pt with history of Type 2 diabetes managed at home on basal and bolus insulin. * Today, pt underwent I&D of foot abscess. She was NPO this AM. * Patient has been getting basal Lantus and Novolog last 2 days. Pharmacy consulted today for glycemic management. * Lantus 40 units given the last 2 nights. Fasting BSG today = 74 mg/dl. Reduced Lantus dose by 25% for tonight to prevent hypoglycemia in the AM tomorrow. * Novolog parameters based on wt and stress of 3. Since BSG trending low (pre- lunch BSG = 85 mg/dl), Novolog CR ratio loosened with lunch. PLAN FOR INPATIENT GLYCEMIC CONTROL: * Basal insulin * Lantus 40 units SQ HS * Bolus insulin * NovoLog per scale ACHS or Q6hrs while NPO * Goal Range: Low 110 mg/dL - High 140 mg/dL * Correction Factor: 25 mg/dL/unit * Nutritional / Prandial insulin per carb ratio of 1 unit per 10 grams CHO consumed PLAN FOR DISCHARGE: * TBD
--- NOTE | 2021-07-16 12:23 | Operative Report (OR) ---
DATE OF PROCEDURE: 05/16/2021. PREOPERATIVE DIAGNOSES: 1. Right foot osteomyelitis, distal phalanx of the great toe. 2. Abscess adjacent to the first metatarsophalangeal region. 3. Dystrophic nail plate of the great toe. 4. Diabetic ulcer, distal tip, right great toe measuring 1 x 1 x 0.1 cm. POSTOPERATIVE DIAGNOSES: 1. Right foot osteomyelitis, distal phalanx of the great toe. 2. Abscess adjacent to the first metatarsophalangeal region. 3. Dystrophic nail plate of the great toe. 4. Diabetic ulcer, distal tip, right great toe measuring 1 x 1 x 0.1 cm. PROCEDURE: 1. Right foot exostectomy, distal phalanx osteomyelitis, great toe. 2. Incision and drainage of abscess, right first metatarsophalangeal region. 3. Debridement, diabetic ulcer including skin and subcutaneous tissue measuring 1 x 1 x 0.1 cm, dist al great toe. 4. Removal of the nail plate, great toe. SURGEON: Akhil Montaño DO PROFESSIONAL SPORTS SCOUT: Maribell Maki PA-C, who was present for patient positioning, sterile prep and veronica pe, management of retractors and instruments. He was present through the critical portions of the danni e including wound closure, application of sterile dressing and transport of the patient to recovery. ANESTHESIA: MAC regional. SPECIMENS: Aerobic, anaerobic, Gram stain, abscess, first metatarsophalangeal region, right foot. DRAINS: None. COMPLICATIONS: None. BLOOD LOSS: 1 mL. PERTINENT HISTORY: This is a 56-year-old female with history of pain, swelling, redness, ulcer, dist al aspect of the right great toe, evaluated for vascular insult, was found to have an abscess adjacen t to the first metatarsophalangeal region. She was admitted to the hospital, placed on IV antibiotic s. Orthopedics was consulted. The patient subsequently had an MRI, which demonstrated changes consi stent with osteomyelitis of distal phalanx of the great toe. Upon clinical exam, noted to have nail dystrophy consistent with chronic infection of the great toenail with ulceration of the distal tip of the great toe and high likelihood of osteomyelitis of the great toe distal phalanx. The patient was then scheduled for surgery as indicated. All potential risks, benefits, complications, alternatives, rehab potential for incomplete relief of symptoms, need for further surgery, DVT, PE, , persistent pain, swelling, scarring, weakness, ne urovascular injury, wound complications, need for further amputation was discussed with the patient. The patient decided to proceed with the procedure as indicated. DESCRIPTION OF PROCEDURE: The patient was taken to the operative suite and placed supine on the oper ating room table. After review of consent and identification of proper operative site, the patient w as then sedated and right foot was then sterilely prepped and draped in usual fashion, elevated and p artially exsanguinated from the hindfoot extending proximally and a tourniquet was applied over the s terile surgical towel at the level of the ankle. Next, after surgical timeout was performed, a 15 blade scalpel was used to make an incision along the medial aspect of the first metatarsophalangeal region. The skin was then carefully incised with a # 15 blade scalpel and deepened through the skin and subcutaneous tissue. A Metzenbaum scissor was the n used to dissect to the level of the abscess. The abscess was encountered and then culture was obta ined for aerobic, anaerobic, and Gram stain analysis. Next, the #15 blade was then used to make an incision at the distal tip of the right great toe in a t ransverse fashion. This incision was then deepened through skin and subcutaneous tissue down to the level of periosteum and bone. The periosteal tissue was then carefully dissected superiorly and infe riorly to the level of question on the MRI and the bone was noted to be markedly softened consistent with osteomyelitis. A probe was inserted into the bone with little resistance of the distal tip. Ne xt, a bone biting rongeur was used to resect approximately 7-8 mm of distal phalanx. This was then s ent off for specimen for pathological assessment. Next, the nail plate was noted to be dystrophic, f eatures consistent with chronic infection and a hemostat was then used to unroof the nail plate and u sing rotation used to remove the nail plate without difficulty. There was noted to be slough and donovan e purulent discharge in the recesses of the great toenail. Next, the pulsatile lavage, 3 liters of A ncef was then used to lavage the great toe and the medial incision for the abscess until clear. The top gloves were then changed, top sheet was changed, and then the diabetic ulcer of the distal tip of the great toe was then debrided including skin, subcutaneous tissue, noted to be 1 x 1 x 0.1 cm gilberto on of debridement. Finally, a regional block was then performed with approximately 30 mL of 0.5% Ma rcaine plain, and a partial ankle block and then forefoot block. After this was completed, a sterile compressive dressing was applied and overwrapped with an Mikey wrap. The tourniquet was released with normal hyperemic response returning to the lesser toes. The patient was awakened and taken to [facility] in stable condition. Job ID: [id number]
[2021-07-16] MEDS ORDERED: Nursing to Pharmacy Communication SCH (12:45)
[2021-07-16] MEDS: SODIUM CHLORIDE 0.9% 1000ML 1,000 ML IV SCH ×2 (13:14→23:01)
[2021-07-16] MEDS: CARBOHYDRATES FOR HYPOGLYCEMIA PO PRN ×2 (17:35→17:53)
[2021-07-16] MEDS ORDERED: GLUCAGON FOR INJ 1 MG VIAL IM PRN (17:45)
[2021-07-16] MEDS ORDERED: GLUCOSE 40% GEL 15 GM TUBE PO PRN (17:45)
[2021-07-16] MEDS ORDERED: DEXTROSE 50% 50 ML SYRINGE IV PRN (17:45)
[2021-07-16] MEDS ORDERED: GLUCOSE 10 TABS/TUBE PO PRN (17:45)
[2021-07-16] MEDS ORDERED: PANTOprazole 40 MG in SYRINGE 0 ML IV SCH (18:00)
--- NOTE | 2021-07-16 18:05 | Hospitalist Progress Note ---
Date of Service July 16, 2021 Assessment & Plan (1) Toe ulcer, right: Plan: Patient is a 56 year old female with PMHx DM2, HLD, Peripheral Neuropathy, PAD that presents with chief complaint of worsening pain of her R foot and at the recommendation of her [place] Gluer Dr. Lin to come to the ED for treatment of suspected infection of her R great toe ulceration. 1) Right foot ulcer with abscess -CT bilateral LE: small 6mm rim-enhancing subcutaneous fluid collection along the plantar medial aspect of the R first metatarsophalangeal joint and adjacent infiltration, consistent with a small abscess -h/o of MRSA infection, abx should cover for MRSA -ED started Zosyn and Daptomycin empirically, cont. -Blood cultures no growth after 24 hours -Vascular consult: blood flow not likely primary cause of ulcer -Wound care following -MRI right foot: Minimal marrow edema versus failure of fat suppression involving the tuft of the first distal phalanx, likely osteitis. -Ortho consult: MRI + clinical findings suggestive of osteomyelitis distal phalanx of the right great toe with abscess. Exostectomy + I&D performed (07/16) -Pain control with Dilaudid IV and Tylenol -NSS @100mls/hr 2) LUQ pain on palpation - ?gastritis, less likely to be splenic capsule irritation or injury. ?constipation at the splenic flexure -no signs of bleeding, negative peritoneal signs -started protonix -if worsening overnight, consider KUB or CT 3) DM2 -Cont. lantus 30units + SSI, blood sugar goal between 100-150 for AM BG. -pharm following -information systems operator consult appreciated -will set up with sueding machine tender outpatient for diabetes management -monitor BSG 4) PAD -Dr. Lin ordered a brachial ankle index which revealed a right ratio of 0.69 indicative of peripheral artery disease - should allow adequate blood flow for healing 5) HLD -Cont. home Lipitor 6) HTN -Cont. home Zestril -Cont. home Metroprolol DVT ppx: Lovenox FEN: DM2, NSS Code: Full Dispo: Med/Surg Admission and Anticipated Discharge Date Admission Date: July 14, 2021 Supervising Physician Co-Signing Physician Notes Patient seen and examined with PGY 1, Dr. Grayson. Agree with history, exam findings, assessment and plan of care as outlined. In brief, Ms. Witt is a 56-year-old female with history of peripheral artery disease and uncontrolled diabetes admitted with a right great toe ulcer with abscess. Seen today after right distal great toe debridement and amputation with Dr. Montaño. Feels that the regional block as worn off and she is starting to have a lot of pain in the foot/toe area. Feels quit tired. Vital signs and nursing notes reviewed. She is nontoxic-appearing. Right lower leg with bulky post-operative dressing. Labs and imaging reviewed. 1. Right great toe ulcer with abscess in the setting of uncontrolled diabetes and peripheral artery disease. MRI with evidence of osteitis at the tuft of the great toes distal phalanx. s/p irrigation debridement and amputation of the distal great toe with Dr Montaño on 07/16. White count is downtrending. Blood cultures without growth. Continue with Zosyn and Dapto. 2. Peripheral artery disease. Recent vascular imaging showed mild to moderate iliac/SFA disease and severe KERLINE disease. Continue aspirin and Lipitor. 3. Type 2 diabetes. A1C this admission 11/1%. Continue with basal bolus insulin dosing. Appreciate assistance from glycemic consult and char filter tank tender head. Already has an appointment with endocrine set up for outpatient. 4. Hypertension. Continue lisinopril and metoprolol. Dispo: pending clinical improvement, PT/OT evaluation. Subjective Patient seen at bedside this morning. Had debridement and amputation of the distal portion of the right great toe earlier today with ortho. Right foot is starting to throb. She is hoping to get permission to remove the SCDs. She is tired from not eating or drinking much due to the procedure. Otherwise no acute complaints. Review of Systems Review of Systems: Constitutional: denies fevers, chills. +fatigue CV: denies chest pain, palpitations Resp: denies shortness of breath, cough GI: denies nausea, vomiting, constipation, diarrhea. +abdominal pain : denies pain with urination, change in urinary frequency Physical Exam Constitutional: well developed and well nourished; no acute distress Eyes: PERRL, conjunctivae normal, anicteric sclerae + anicteric sclerae Neck: trachea midline, no thyromegaly normal visual inspection and trachea midline Respiratory: normal respiratory effort, lungs clear to auscultation normal respiratory effort Cardiovascular: RRR, no murmur, no edema Heart Sounds: no murmur Palpation: normal PMI Vessels: no JVD Gastrointestinal (Abdomen): Inspection/Auscultation: abdomen normal to inspection; abdomen not distended Percussion/Palpation: + abdomen tender (LUQ to palpation) and abdomen soft; no guarding, abdomen not rigid and no hepatosplenomegaly no ecchymosis Musculoskeletal: right lower extremity in bulky post-operative dressing. Neurologic: moves all extremities Psychiatric: A+Ox3, euthymic affect Results & Data Results & Data ([facility]) Vital Signs (Past 12 Hours) Vital Signs Temp Pulse Pulse Resp BP BP Pulse Ox 07/16/21 15:50 96/59 L 07/16/21 15:42 36.9 C 75 18 87/57 L 93 07/16/21 14:37 36.9 C 75 16 114/71 95 07/16/21 13:11 36.8 C 82 16 119/80 100 07/16/21 12:30 36.7 C 81 17 137/74 98 07/16/21 11:45 36.5 C 72 18 114/70 96 07/16/21 11:35 36.7 C 72 19 119/75 97 07/16/21 11:25 78 18 121/57 L 98 07/16/21 11:15 77 12 114/69 97 07/16/21 11:05 76 12 102/51 L 100 07/16/21 10:59 36.1 C L 79 16 117/69 100 07/16/21 09:10 88 150/81 H 07/16/21 07:29 37.1 C 85 18 119/71 96 Resident Activity Tracking Resident Involvement: Resident Care Provided Care Provided: Adult Hospital Medicine
[2021-07-16] MEDS: ZOLPIDEM TARTRATE 10 MG TAB PO SCH (20:05)
[2021-07-16] MEDS: ENOXAPARIN INJ 40 MG/0.4 ML SYR SQ SCH (20:09)
[2021-07-16] MEDS: ATORVASTATIN 40 MG TAB PO SCH (20:09)
[2021-07-16] MEDS: rOPINIRole HCL 2 MG TABLET PO SCH (20:09)
[2021-07-16] MEDS: SENNA 8.6 MG TAB PO SCH (20:10)
[2021-07-16] MEDS: DOCUSATE SODIUM 100 MG CAP PO SCH (20:10)
[2021-07-16] MEDS: NORTRIPTYLINE HCL 25 MG CAP PO SCH (20:11)
[2021-07-16] MEDS ORDERED: INSULIN GLARGINE SOLOSTAR 100 UNITS/ML 3 ML PEN SQ SCH (21:00)
[2021-07-17] MEDS: DAPTOmycin 300 MG in SYRINGE 0 ML IV SCH (00:43)
[2021-07-17] MEDS: HYDROmorphone INJ 0.5 MG/0.5 ML SYR IV PRN ×7 (02:50→21:26)
[2021-07-17] MEDS: PIPERACILLIN/TAZOBACTAM 3.375 GM in DEXTROSE 5% 100 ML IV SCH ×3 (06:08→20:30)
[2021-07-17] MEDS: LORazepam 1 MG TAB PO SCH ×3 (09:18→22:03)
[2021-07-17] MEDS: DOCUSATE SODIUM 100 MG CAP PO SCH ×2 (09:18→20:33)
[2021-07-17] MEDS: CYCLOBENZAPRINE HCL 10 MG TAB PO SCH ×3 (09:18→20:22)
[2021-07-17] MEDS: PANTOprazole 40 MG TAB PO SCH (09:19)
[2021-07-17] MEDS: INSULIN ASPART 100 UNITS/ML 3 ML PEN SC SCH ×4 (09:20→20:38)
[2021-07-17] MEDS: METOPROLOL SUCC 50MG EXT REL TAB PO SCH (09:33)
[2021-07-17] MEDS: ASPIRIN 81 MG ECTAB PO SCH (09:34)
[2021-07-17] MEDS: lisinopril 20 MG TAB PO SCH (09:34)
[2021-07-17] MEDS: MULTIVITAMIN TAB PO SCH (09:35)
--- NOTE | 2021-07-17 09:58 | Hospitalist Progress Note ---
Date of Service July 17, 2021 Assessment & Plan (1) Toe ulcer, right: Plan: Patient is a 56 year old female with PMHx DM2, HLD, Peripheral Neuropathy, PAD that presents with chief complaint of worsening pain of her R foot and at the recommendation of her Clin Nurse Dr. Lin to come to the ED for treatment of suspected infection of her R great toe ulceration. 1) Right foot ulcer with abscess -CT bilateral LE: small 6mm rim-enhancing subcutaneous fluid collection along the plantar medial aspect of the R first metatarsophalangeal joint and adjacent infiltration, consistent with a small abscess -h/o of MRSA infection, abx should cover for MRSA -ED started Zosyn and Daptomycin empirically, cont. -Blood cultures without growth to date -wound culture no growth to date -Vascular consult: blood flow not likely primary cause of ulcer -Wound care following -MRI right foot: Minimal marrow edema versus failure of fat suppression involving the tuft of the first distal phalanx, likely osteitis. -Ortho consult: MRI + clinical findings suggestive of osteomyelitis distal phalanx of the right great toe with abscess. Exostectomy + I&D performed (07/16); will change dressing tomorrow -Pain control with Dilaudid IV and Tylenol 2) LUQ pain -TTP LUQ on exam -no signs of bleeding, no guarding -ddx hypermotility, gastric acid irritation, internal bleeding -protonix daily -KUB pending 3) Candiduria -urinary urgency past 3 months -urine culture grew diamante -Diflucan 150mg PO x1 4) Chronic cough -mild cough with bilateral crackles heard on examination -start Advair BID 3) DM2 -Cont. with ssi (given low PO intake, basal insulin has been stopped). - Appreciate glycemic consult recommendations -certified diabetes educator consult appreciated -set up with plaster and stucco worker outpatient for diabetes management -monitor BSG 4) PAD -Dr. Lin ordered a brachial ankle index which revealed a right ratio of 0.69 indicative of peripheral artery disease -Will follow vascular's recommendations. 5) HLD -Cont. home Lipitor 6) HTN -Cont. home Zestril -Cont. home Metroprolol DVT ppx: Lovenox FEN: DM2 Code: Full Dispo: Med/Surg Admission and Anticipated Discharge Date Admission Date: July 14, 2021 Supervising Physician Co-Signing Physician Notes Patient seen and examined with PGY 1, Dr. Grayson. Agree with history, exam findings, assessment and plan of care as outlined. In brief, Ms. Witt is a 56-year-old female with history of peripheral artery disease and uncontrolled diabetes admitted with a right great toe ulcer with abscess. Feels tired. No appetite. Reports that she has had a long history of LUQ pain in the past. Has had imaging but everything was normal. Last bowel movement was a couple of days ago, but typical has bowel movements every 2 weeks. Vital signs and nursing notes reviewed. She is nontoxic-appearing. Right lower leg with bulky post-operative dressing. Labs and imaging reviewed. 1. Right great toe ulcer with abscess in the setting of uncontrolled diabetes and peripheral artery disease. MRI with evidence of osteitis at the tuft of the great toes distal phalanx. s/p irrigation debridement and amputation of the distal great toe with Dr Montaño on 07/16. White count is downtrending. Blood cultures without growth. Continue with Zosyn and Dapto. 2. Peripheral artery disease. Recent vascular imaging showed mild to moderate iliac/SFA disease and severe KERLINE disease. Continue aspirin and Lipitor. 3. Type 2 diabetes. A1C this admission 11.1%. Stopped basal insulin due to poor PO intake and hypoglycemia. Continue with ssi. Appreciate assistance from glycemic consult and agricultural extension educator. Already has an appointment with endocrine set up for outpatient. 4. Hypertension. Continue lisinopril and metoprolol. 5. LUQ pain. Long history of this. Will get KUB tonight. Dispo: pending clinical improvement, PT/OT evaluation. Subjective Patient seen at bedside this morning. I&D right great toe yesterday. Right foot throbbing with pain. Still not eating much, says she hasn't been eating much over the last few months. Still has LUQ pain as well, says she's had it chronically for ~6 months, at its worst right now. Review of Systems Review of Systems: Constitutional: denies fevers, chills. +fatigue CV: denies chest pain, palpitations Resp: denies shortness of breath, cough GI: denies nausea, vomiting, constipation, diarrhea. +abdominal pain : denies pain with urination, change in urinary frequency. +urinary urgency over past 3 months Physical Exam Constitutional: well developed and well nourished; no acute distress Eyes: PERRL, conjunctivae normal, anicteric sclerae Neck: trachea midline, no thyromegaly normal visual inspection and trachea midline Respiratory: normal respiratory effort and + cough (mild) Auscultation: + crackles (mild bilaterally) Cardiovascular: RRR, no murmur, no edema Vessels: no JVD Gastrointestinal (Abdomen): Inspection/Auscultation: abdomen normal to inspection; abdomen not distended Percussion/Palpation: + abdomen tender (LUQ to palpation) and abdomen soft; no guarding, abdomen not rigid and no hepa tosplenomegaly Neurologic: moves all extremities Psychiatric: A+Ox3, euthymic affect Results & Data Results & Data ([facility]) Vital Signs (Past 12 Hours) Vital Signs Temp Pulse Resp BP BP Pulse Ox 07/17/21 07:25 36.7 C 86 16 118/70 95 07/17/21 02:52 36.6 C 83 16 126/71 97 07/16/21 22:58 36.7 C 75 17 100/61 92 Resident Activity Tracking Resident Involvement: Resident Care Provided Care Provided: Adult Hospital Medicine
--- NOTE | 2021-07-17 11:55 | Orthopedic Progress Note ---
Date of Service July 17, 2021 Assessment & Plan (1) Cellulitis: Plan: Incision and Drainage Extremity Right Foot Abcess, Resection Nail Plate Great Toe currently no growth on cultures. will continue to monitor dressing change tomorrow. Admission and Anticipated Discharge Date Admission Date: July 14, 2021 Subjective patient resting in bed with some mild pain Physical Exam Physical Exam: dressing intact and in place. NVI. Results & Data ([facility]) Vital Signs (Past 12 Hours) Vital Signs Temp Pulse Resp BP BP Pulse Ox 07/17/21 07:25 36.7 C 86 16 118/70 95 07/17/21 02:52 36.6 C 83 16 126/71 97
[2021-07-17 12:07] LABS: Basophils # (auto) 0.03 K/uL (0-0.2); Basophils % (auto) 0.2 %; Eosinophils # (auto) 0.32 K/uL (0-0.5); Eosinophils % (auto) 2.6 %; Hematocrit (blood only) 35.6 % (37-47); Hemoglobin 11.5 g/dL (12.0-16.0); Immature Granulocytes # (auto) 0.03 K/uL (0.00-0.02); Immature Granulocytes % (auto) 0.2 %; Lymphocytes # (auto) 2.27 K/uL (1.2-3.4); Lymphocytes % (auto) 18.2 %; Mean Corpuscular Hemoglobin 26.9 pg (25-34); Mean Corpuscular Hgb Conc 32.3 g/dL (32-36); Mean Corpuscular Volume 83.2 fL (80-100); Mean Platelet Volume 10.3 fL (7.4-10.4); Monocytes # (auto) 0.96 K/uL (0.11-0.59); Monocytes % (auto) 7.7 %; Neutrophils # (auto) 8.88 K/uL (1.4-6.5); Neutrophils % (auto) 71.1 %; Platelet Count 320 K/uL (130-400); RDW Coefficient of Variation 14.2 % (11.5-14.5); Red Blood Count 4.28 M/uL (4.2-5.4); White Blood Count 12.49 K/uL (4.8-10.8)
[2021-07-17 12:35] LABS: BUN Creatinine Ratio 15.2 (10-20); Calcium 8.9 mg/dl (8.5-10.1); Est GFR (African American) 122.9 ml/min; Est GFR (Non-African American) 106.1 ml/min; Potassium 3.9 mmol/L (3.5-5.1)
[2021-07-17] MEDS ORDERED: FLUCONAZOLE 50 MG TAB PO ONE (15:12)
--- NOTE | 2021-07-17 19:38 | XRay Report ---
KUB HISTORY: Left upper quadrant abdominal pain. COMPARISON: Chest and abdominal series 03/08/2021. FINDINGS: The bowel gas pattern is unremarkable. There are no dilated loops of small bowel to suggest an obstruction. No renal calculi. No ureteral calculi. Calcifications in the deep pelvis likely rep resent phleboliths. L5-S1 posterior fusion hardware again noted. Prior cholecystectomy. Moderate well -formed stool within the colon. No pneumoperitoneum or pneumatosis. IMPRESSION: 1. No evidence for bowel obstruction. 2. Moderate well-formed stool within the colon. ACT 112: Negative or not required by law. Electronically signed by: Ernst Murray M.D. 07/17/2021 7:36 PM
[2021-07-17] MEDS ORDERED: diphenhydrAMINE Capsule 25 MG CAP PO ONE (19:58)
[2021-07-17] MEDS: ZOLPIDEM TARTRATE 10 MG TAB PO SCH (20:22)
[2021-07-17] MEDS: ENOXAPARIN INJ 40 MG/0.4 ML SYR SQ SCH (20:29)
[2021-07-17] MEDS: FLUTICASONE/VILANTEROL 100/25MCG 14 PUFFS/INHALER INH SCH (20:30)
[2021-07-17] MEDS: SENNA 8.6 MG TAB PO SCH (20:32)
[2021-07-17] MEDS: rOPINIRole HCL 2 MG TABLET PO SCH (20:32)
[2021-07-17] MEDS: NORTRIPTYLINE HCL 25 MG CAP PO SCH (20:33)
[2021-07-17] MEDS: ATORVASTATIN 40 MG TAB PO SCH (20:34)
[2021-07-17] MEDS: INSULIN GLARGINE SOLOSTAR 100 UNITS/ML 3 ML PEN SQ SCH (20:39)
[2021-07-18] MEDS: DAPTOmycin 300 MG in SYRINGE 0 ML IV SCH (00:43)
[2021-07-18] MEDS: HYDROmorphone INJ 0.5 MG/0.5 ML SYR IV PRN ×8 (00:44→21:28)
[2021-07-18] MEDS: PIPERACILLIN/TAZOBACTAM 3.375 GM in DEXTROSE 5% 100 ML IV SCH ×3 (04:28→20:52)
[2021-07-18 07:01] LABS: Basophils # (auto) 0.03 K/uL (0-0.2); Basophils % (auto) 0.3 %; Eosinophils # (auto) 0.27 K/uL (0-0.5); Eosinophils % (auto) 2.8 %; Hematocrit (blood only) 34.2 % (37-47); Hemoglobin 11.1 g/dL (12.0-16.0); Immature Granulocytes # (auto) 0.01 K/uL (0.00-0.02); Immature Granulocytes % (auto) 0.1 %; Lymphocytes # (auto) 2.22 K/uL (1.2-3.4); Lymphocytes % (auto) 23.2 %; Mean Corpuscular Hemoglobin 27.2 pg (25-34); Mean Corpuscular Hgb Conc 32.5 g/dL (32-36); Mean Corpuscular Volume 83.8 fL (80-100); Mean Platelet Volume 10.5 fL (7.4-10.4); Monocytes # (auto) 1.09 K/uL (0.11-0.59); Monocytes % (auto) 11.4 %; Neutrophils # (auto) 5.95 K/uL (1.4-6.5); Neutrophils % (auto) 62.2 %; Platelet Count 293 K/uL (130-400); RDW Coefficient of Variation 14.2 % (11.5-14.5); RDW Standard Deviation 43.8 fL (36.4-46.3); Red Blood Count 4.08 M/uL (4.2-5.4); White Blood Count 9.57 K/uL (4.8-10.8)
[2021-07-18 07:35] LABS: BUN Creatinine Ratio 14.6 (10-20); Calcium 8.8 mg/dl (8.5-10.1); Est GFR (African American) 121.4 ml/min; Est GFR (Non-African American) 104.8 ml/min; Potassium 4.2 mmol/L (3.5-5.1)
[2021-07-18] MEDS: DOCUSATE SODIUM 100 MG CAP PO SCH ×2 (07:56→20:42)
[2021-07-18] MEDS: CYCLOBENZAPRINE HCL 10 MG TAB PO SCH ×3 (07:57→20:42)
[2021-07-18] MEDS: LORazepam 1 MG TAB PO SCH ×3 (08:02→20:42)
[2021-07-18] MEDS: lisinopril 20 MG TAB PO SCH (08:02)
[2021-07-18] MEDS: METOPROLOL SUCC 50MG EXT REL TAB PO SCH (08:03)
[2021-07-18] MEDS: PANTOprazole 40 MG TAB PO SCH (08:04)
[2021-07-18] MEDS: ASPIRIN 81 MG ECTAB PO SCH (08:04)
[2021-07-18] MEDS: MULTIVITAMIN TAB PO SCH (08:05)
[2021-07-18] MEDS: INSULIN ASPART 100 UNITS/ML 3 ML PEN SC SCH ×4 (09:32→21:24)
[2021-07-18] MEDS: ACETAMINOPHEN 325 MG TAB PO PRN (09:33)
--- NOTE | 2021-07-18 12:13 | Pharmacy Report ---
Pharmacy Glycemic Short Note 2 - Date of Service July 18, 2021 - Glycemic Short BSG Results (Last 24 hours): 07/17/21 07/17/21 07/17/21 11:22 12:34 16:54 Glucose 93 POC Glucose 96 120 H 07/17/21 07/18/21 07/18/21 20:34 06:02 08:17 Glucose 80 POC Glucose 151 H 75 OUTPATIENT ANTIDIABETIC REGIMEN: * Lantus 40 units HS * Humalog 10 units TIDM * HbA1C = 11.1% 07/15/21 ASSESSMENT: * Ms Witt is a 56 y/o F with a PMH of T2DM insulin dependent with elevated HbA1C who presents with R foot abscess and osteomyelitis. * Patient underwent I&D with removal of bone and toe nail on 07/16/21. * BSGs over the past 24 hours have been 47-78-820-151 mg/dL. * She received 21 units of insulin (15 units of basal and 6 units of bolus). * Over the past several days, patient has received decreasing amounts of bolus insulin (40 units on the 3rd then 30 units and only 15 units last night). BSG is still lower this morning at 75 mg/dL. May be due to larger amounts of basal previously received. * Will give scale Lantus for tonight. Careful with decreasing Lantus too quickly to prevent rebound hyperglycemia. * Novolog continue. PLAN FOR INPATIENT GLYCEMIC CONTROL: * Hold outpatient oral diabetes medications * Basal insulin * Lantus 0-15 units SQ HS (hold if blood sugar < 150 mg/dL; 10 units if BSG 150-180 mg/dL; 15 units if BSG >180 mg/dL) * Bolus insulin * NovoLog per scale ACHS or Q6hrs while NPO * Goal Range: Low 110 mg/dL - High 140 mg/dL * Correction Factor: 30 mg/dL/unit * Nutritional / Prandial insulin per carb ratio of 1 unit per 10 grams CHO consumed PLAN FOR DISCHARGE: * TBD
--- NOTE | 2021-07-18 15:34 | Orthopedic Progress Note ---
Date of Service July 18, 2021 Assessment & Plan (1) Cellulitis: Plan: POD 2 s/p Incision and Drainage Extremity Right Foot Abcess, Resection Nail Plate Great Toe WBAT on heel only with cast shoe. Cx NGTD Daily dressing changes. Admission and Anticipated Discharge Date Admission Date: July 14, 2021 Subjective Postop day 2 Patient sleeping upon arrival. Easily awoken. States she is having pain off and on. No new complaints. Physical Exam Physical Exam: Dressing removed. Xeroform gauze adhered to surgical site. Sterile saline used to soak the gauze to remove. Pt requiring pain medication during removal. Wounds are benign. Suture lines well approximated. Mild bleeding from the nail bed site. No purulence. Minimal erythema. Redressed wound with adaptic, 4x4's, and kerlix. Results & Data ([facility]) Vital Signs (Past 12 Hours) Vital Signs Temp Pulse Resp BP Pulse Ox 07/18/21 07:16 36.8 C 83 18 115/68 93
--- NOTE | 2021-07-18 16:45 | Hospitalist Progress Note ---
Date of Service July 18, 2021 Assessment & Plan (1) Toe ulcer, right: Plan: Patient is a 56 year old female with PMHx DM2, HLD, Peripheral Neuropathy, PAD that presents with chief complaint of worsening pain of her R foot and at the recommendation of her Ornamental Metal Fabricator Apprentice Dr. Lin to come to the ED for treatment of suspected infection of her R great toe ulceration. 1) Right foot ulcer with abscess -CT bilateral LE: small 6mm rim-enhancing subcutaneous fluid collection along the plantar medial aspect of the R first metatarsophalangeal joint and adjacent infiltration, consistent with a small abscess -MRI with minimal marrow edema vs failure of fat suppression involving the tuft of the first distal phalanx, likely osteitis -- However with clinical findings suggestive of osteomyelitis of the distal phalanx of the R great toe with abscess - S/P I&D and exostectomy on 07/16 -H/O of MRSA infection -Continue Zosyn and Daptomycin -- BCx with NGTD; Foot Cx with NGTD - Continue pain and bowel regimen - Vascular consulted - do not feel related to ischemia or emboli; arterial perfusion adequate for wound healing and surgical wound healing; no need for additional invasive vascular testing/revascularization at this time - Ortho consulted -- WBAT on heel only with cast shoe - Wound care following - cleanse with saline; cover with Xeroform, 4x4, and Kerlix - change every day - Will consult ID to assist with Abx choices - oral vs IV and well as duration 2) LUQ pain - Reports improvement today - no acute abdominal findings -- Suspect a component of constipation contributing -Protonix daily -KUB - no obstructive findings; moderate well-formed stool within the stool 3) Candiduria -urinary urgency past 3 months -urine culture grew diamante -Diflucan 150mg PO x1 4) Chronic cough -mild cough; remains on RA - Continue Fluticasone/Vilanterol 3) DM2 - A1c - 11.1 -Cont. with ssi (given low PO intake, basal insulin has been stopped). - Appreciate glycemic consult recommendations -certified lactation educator consult appreciated -- Recommend Metformin 500 mg BID as outpatient (was previously on that but stopped as it was "drying" her out); will better streamline closer to D/C -set up with beef cattle specialist outpatient for diabetes management -monitor BSG 4) PAD -Dr. Lin ordered a brachial ankle index which revealed a right ratio of 0.69 indicative of peripheral artery disease -Will follow vascular's recommendations. 5) HLD -Cont. home Lipitor 6) HTN -Cont. home Zestril -Cont. home Metroprolol Dispo: Will consult ID to determine IV vs po and length of Abx coverage; Will discuss to see when orthopedically stable; anticipate return home with home serv ices on D/C hopefully in next 1-2 days Admission and Anticipated Discharge Date Admission Date: July 14, 2021 Subjective Reports doing well overall. Having intermittent pain in the toe at surgical site. Overnight noted to have a unilateral facial erythema that extended to mid- forehead down the check and onto neck. No visual changes, pain, or warmth of skin. Significantly reduced this AM during assessment. No airway compromise. History of frankie syndrome with Vanc but has not had similar issues before. Tolerating a diet. Discussed her KUB with moderate amount of stool. Review of Systems Review of Systems: All systems reviewed & are unremarkable except as noted in Subjective Physical Exam Physical Exam: PHYSICAL EXAM General Appearance: WDWN in NAD who is A&O x 3 HEENT: Head is normocephalic/atraumatic; Hearing grossly intact; Mucous membranes moist; Pharynx negative for exudate/lesions Neck: Supple; Trachea midline; Neg JVD; Neg lymphadenopathy Heart: RRR with no M/G/R Lungs: CTA in all lung cardozo bilaterally; Respirations unlabored; Neg accessory muscle use Abdomen: Soft, non-tender, non-distended; Positive BS x 4 quadrants; Neg organomegaly Extremities: Capillary refill < 2 seconds; Neg cyanosis or edema Neurological: Speech clear; Gross motor/sensory function intact; Neg focal neuro logic deficits Psychiatric: Appropriate mood/affect Skin: Normal Color; Warm/Dry; Neg rashes, ecchymosis, lacerations/ulcerations Results & Data Results & Data ([facility]) Vital Signs (Past 12 Hours) Vital Signs Temp Pulse Resp BP BP Pulse Ox 07/18/21 15:40 36.5 C 74 18 97/58 L 94 07/18/21 07:16 36.8 C 83 18 115/68 93 PG Care Time/CCT Total # of Minutes Spent Total Time Spent with Patient: Total time spent is greater than 50% in coordination of care (as documented) at patient's floor/unit and/or counseling patient: Coding Level of Care Code 93130 Subseq Hosp Care Lvl 3 Diagnoses Toe ulcer, right L97.519
[2021-07-18] MEDS: ENOXAPARIN INJ 40 MG/0.4 ML SYR SQ SCH (20:42)
[2021-07-18] MEDS: NORTRIPTYLINE HCL 25 MG CAP PO SCH (20:42)
[2021-07-18] MEDS: SENNA 8.6 MG TAB PO SCH (20:42)
[2021-07-18] MEDS: ZOLPIDEM TARTRATE 10 MG TAB PO SCH (20:42)
[2021-07-18] MEDS: rOPINIRole HCL 2 MG TABLET PO SCH (20:42)
[2021-07-18] MEDS: ATORVASTATIN 40 MG TAB PO SCH (20:42)
[2021-07-18] MEDS: FLUTICASONE/VILANTEROL 100/25MCG 14 PUFFS/INHALER INH SCH (20:43)
[2021-07-18] MEDS: INSULIN GLARGINE SOLOSTAR 100 UNITS/ML 3 ML PEN SQ SCH (21:10)
[2021-07-19] MEDS: DAPTOmycin 300 MG in SYRINGE 0 ML IV SCH (00:26)
[2021-07-19] MEDS: HYDROmorphone INJ 0.5 MG/0.5 ML SYR IV PRN ×6 (00:26→19:25)
[2021-07-19] MEDS: oxyCODONE HCL IR 5 MG TAB (IMMEDIATE RELEASE) PO PRN ×4 (05:41→21:21)
[2021-07-19] MEDS: PIPERACILLIN/TAZOBACTAM 3.375 GM in DEXTROSE 5% 100 ML IV SCH ×2 (05:41→12:58)
[2021-07-19] MEDS ORDERED: INSULIN GLARGINE SOLOSTAR 100 UNITS/ML 3 ML PEN SC ONE (09:00)
[2021-07-19] MEDS: ASPIRIN 81 MG ECTAB PO SCH (09:11)
[2021-07-19] MEDS: CYCLOBENZAPRINE HCL 10 MG TAB PO SCH ×3 (09:11→20:11)
[2021-07-19] MEDS: LORazepam 1 MG TAB PO SCH ×3 (09:11→21:22)
[2021-07-19] MEDS: MULTIVITAMIN TAB PO SCH (09:11)
[2021-07-19] MEDS: PANTOprazole 40 MG TAB PO SCH (09:11)
[2021-07-19] MEDS: lisinopril 20 MG TAB PO SCH (09:12)
[2021-07-19] MEDS: DOCUSATE SODIUM 100 MG CAP PO SCH ×2 (09:12→20:12)
[2021-07-19] MEDS: METOPROLOL SUCC 50MG EXT REL TAB PO SCH (09:12)
[2021-07-19] MEDS: INSULIN ASPART 100 UNITS/ML 3 ML PEN SC SCH ×4 (09:15→21:23)
[2021-07-19 09:25] LABS: Basophils # (auto) 0.03 K/uL (0-0.2); Basophils % (auto) 0.4 %; Eosinophils # (auto) 0.28 K/uL (0-0.5); Eosinophils % (auto) 3.6 %; Hematocrit (blood only) 38.5 % (37-47); Hemoglobin 12.5 g/dL (12.0-16.0); Lymphocytes # (auto) 1.66 K/uL (1.2-3.4); Lymphocytes % (auto) 21.1 %; Mean Corpuscular Hemoglobin 27.6 pg (25-34); Mean Corpuscular Hgb Conc 32.5 g/dL (32-36); Mean Platelet Volume 10.4 fL (7.4-10.4); Monocytes # (auto) 0.78 K/uL (0.11-0.59); Monocytes % (auto) 9.9 %; Platelet Count 327 K/uL (130-400); RDW Coefficient of Variation 14.1 % (11.5-14.5); RDW Standard Deviation 44.4 fL (36.4-46.3); Red Blood Count 4.53 M/uL (4.2-5.4); White Blood Count 7.85 K/uL (4.8-10.8)
[2021-07-19 09:56] LABS: BUN Creatinine Ratio 14.8 (10-20); Calcium 9.4 mg/dl (8.5-10.1); Creatinine Clr Calc Pharmacy 92.7 ml/min; Est GFR (African American) 117.3 ml/min; Est GFR (Non-African American) 101.2 ml/min
--- NOTE | 2021-07-19 11:55 | Pharmacy Report ---
Pharmacy Glycemic Short Note 2 - Date of Service July 19, 2021 - Glycemic Short BSG Results (Last 24 hours): 07/18/21 07/18/21 07/18/21 12:32 17:08 20:55 Glucose POC Glucose 81 139 H 110 H 07/19/21 07/19/21 08:08 08:40 Glucose 139 H POC Glucose 130 H OUTPATIENT ANTIDIABETIC REGIMEN: * Lantus 40 units HS * Humalog 10 units TIDM * HbA1C = 11.1% 07/15/21 ASSESSMENT: 07/19/21 * Patient's BSGs yesterday were 54-19-364-110 mg/dL and fasting today is 130 mg/dL. * Patient received 7 units of insulin yesterday with 0 units of basal and 7 units of bolus.. * Fasting trending up well so restart insulin at Lantus 20 units. This is half of patient's home dose. * Continue Novolog BACKGROUND * Ms Witt is a 56 y/o F with a PMH of T2DM insulin dependent with elevated HbA1C who presents with R foot abscess and osteomyelitis. * Patient underwent I&D with removal of bone and toe nail on 07/16/21. * BSGs over the past 24 hours have been 23-08-655-151 mg/dL. * She received 21 units of insulin (15 units of basal and 6 units of bolus). * Over the past several days, patient has received decreasing amounts of bolus insulin (40 units on the 3rd then 30 units and only 15 units last night). BSG is still lower this morning at 75 mg/dL. May be due to larger amounts of basal previously received. * Will give scale Lantus for tonight. Careful with decreasing Lantus too quickly to prevent rebound hyperglycemia. * Novolog continue. PLAN FOR INPATIENT GLYCEMIC CONTROL: * Hold outpatient oral diabetes medications * Basal insulin * Lantus 20 units SQ daily * Bolus insulin * NovoLog per scale ACHS or Q6hrs while NPO * Goal Range: Low 110 mg/dL - High 140 mg/dL * Correction Factor: 30 mg/dL/unit * Nutritional / Prandial insulin per carb ratio of 1 unit per 10 grams CHO consumed PLAN FOR DISCHARGE: * TBD
[2021-07-19] MEDS ORDERED: HYDROmorphone INJ 0.5 MG/0.5 ML SYR IV STA (12:59)
--- NOTE | 2021-07-19 13:15 | Communication Note ---
Date of Service: July 19, 2021 Pt sitting up eating lunch. States she just had her dressing changed by nursing staff. Still fairly uncomfortable with getting gauze/adaptic off. Discussed with nursing. Pt's wound remaining benign. Redressed with multiple layers of xeroform, 4x4's, and kerlix. Continue daily dressing changes. Switch to BID changes if that helps with less granulation causing problems with xeroform. Ortho will sign off at this time. Instructions placed in chart.
[2021-07-19] MEDS: ACETAMINOPHEN 500 MG TAB PO SCH ×2 (14:00→20:12)
[2021-07-19] MEDS: cefTRIAXone SODIUM 2,000 MG in DEXTROSE 5% 50 ML IV SCH (17:17)
[2021-07-19] MEDS ORDERED: diphenhydrAMINE Capsule 25 MG CAP PO ONE (19:11)
--- NOTE | 2021-07-19 19:16 | Hospitalist Progress Note ---
Date of Service July 19, 2021 Assessment & Plan (1) Toe ulcer, right: Plan: Patient is a 56 year old female with PMHx DM2, HLD, Peripheral Neuropathy, PAD that presents with chief complaint of worsening pain of her R foot and at the recommendation of her Production Machine Shop Supervisor Dr. Lin to come to the ED for treatment of suspected infection of her R great toe ulceration. 1) Right foot ulcer with abscess -CT bilateral LE: small 6mm rim-enhancing subcutaneous fluid collection along the plantar medial aspect of the R first metatarsophalangeal joint and adjacent infiltration, consistent with a small abscess -MRI with minimal marrow edema vs failure of fat suppression involving the tuft of the first distal phalanx, likely osteitis -- However with clinical findings suggestive of osteomyelitis of the distal phalanx of the R great toe with abscess - S/P I&D and exostectomy on 07/16 -H/O of MRSA infection -Continue Daptomycin; Change Zosyn to Rocephin -- BCx with NGTD; Foot Cx with NGTD; pathology pending - Continue pain and bowel regimen - paiin has been difficult to control - Vascular consulted - do not feel related to ischemia or emboli; arterial perfusion adequate for wound healing and surgical wound healing; no need for additional invasive vascular testing/revascularization at this time - Ortho consulted -- WBAT on heel only with cast shoe - Wound care following - cleanse with saline; cover with Xeroform, 4x4, and Kerlix - change every day - ID consultation - Abx as above - looking at 4-6 weeks unless amputation or good bone infection margins obtained; could possibly consider soft tissue treatment and did send msg to orthopedics and ID to see if this is a consideration? 2) LUQ pain - Reports improvement today - no acute abdominal findings -- Suspect a component of constipation contributing -Protonix daily -KUB - no obstructive findings; moderate well-formed stool within the stool 3) Candiduria -urinary urgency past 3 months -urine culture grew diamante -Diflucan 150mg PO x1 4) Chronic cough -mild cough; remains on RA - Continue Fluticasone/Vilanterol 3) DM2 - A1c - 11.1 -Cont. with ssi (given low PO intake, basal insulin has been stopped). - Appreciate glycemic consult recommendations -clinical informatics educator consult appreciated -- Recommend Metformin 500 mg BID as outpatient (was previously on that but stopped as it was "drying" her out); will better streamline closer to D/C -set up with latin dance instructor outpatient for diabetes management -monitor BSG 4) PAD -Dr. Lin ordered a brachial ankle index which revealed a right ratio of 0.69 indicative of peripheral artery disease -Will follow vascular's recommendations. 5) HLD -Cont. home Lipitor 6) HTN -Cont. home Zestril -Cont. home Metroprolol 7) Facial Rash - Had a R sided pruritic facial rash that responded to benadryl - almost fully resolved minus a patch to the R cheek -- No eye involvement, no vision changes, no respiratory compromise -- Uncertain of etiology - will try some Benadryl cream Dispo: Will need home infusion set-up - challenge due to staffing - has U/S guided currently - will need weekly CMP, CBC with diff, CPK and biweekly CRP Admission and Anticipated Discharge Date Admission Date: July 14, 2021 Subjective Still having pain control issues. Seemed to improve this afternoon. Tolerating a diet without issue. Is anxious to return home. Did discuss care with her per the patient's request. Completed ID consultation today and discussed with orthopedics Review of Systems Review of Systems: All systems reviewed & are unremarkable except as noted in Subjective Physical Exam Physical Exam: PHYSICAL EXAM General Appearance: WDWN in NAD who is A&O x 3 HEENT: Head is normocephalic/atraumatic; Hearing grossly intact; mildly erythematous dry patch on R check not extending around eye, no drainage or warmth. Patient reports itchiness at site Neck: Supple; Trachea midline; Neg JVD Heart: RRR with no M/G/R Lungs: CTA in all lung cardozo bilaterally; Respirations unlabored; Neg accessory muscle use Abdomen: Soft, non-tender, non-distended; Positive BS x 4 quadrants Extremities: Neg cyanosis or edema; R great toe with nail bed removed and suture s applied to tip of toe with well approximated incision; medial incision with suture and well approximated incision with some edema and bruising. No purulent drainage noted Neurological: Speech clear; Gross motor/sensory function intact; Neg focal neurologic deficits Psychiatric: Appropriate mood/affect Skin: Normal Color; Warm/Dry; other than mentioned above Results & Data Results & Data ([facility]) Vital Signs (Past 12 Hours) Vital Signs Temp Pulse Resp BP Pulse Ox 07/19/21 14:26 36.9 C 75 18 141/82 H 96 PG Care Time/CCT Total # of Minutes Spent Total Time Spent with Patient: Total time spent is greater than 50% in coordination of care (as documented) at patient's floor/unit and/or counseling patient: Coding Level of Care Code 31497 Subseq Hosp Care Lvl 3 Diagnoses Toe ulcer, right L97.519
[2021-07-19] MEDS: NORTRIPTYLINE HCL 25 MG CAP PO SCH (20:11)
[2021-07-19] MEDS: ENOXAPARIN INJ 40 MG/0.4 ML SYR SQ SCH (20:11)
[2021-07-19] MEDS: FLUTICASONE/VILANTEROL 100/25MCG 14 PUFFS/INHALER INH SCH (20:12)
[2021-07-19] MEDS: ATORVASTATIN 40 MG TAB PO SCH (20:12)
[2021-07-19] MEDS: SENNA 8.6 MG TAB PO SCH (20:12)
[2021-07-19] MEDS: rOPINIRole HCL 2 MG TABLET PO SCH (20:12)
[2021-07-19] MEDS: ZOLPIDEM TARTRATE 10 MG TAB PO SCH (21:32)
[2021-07-20] MEDS: DAPTOmycin 300 MG in SYRINGE 0 ML IV SCH ×2 (00:31→23:24)
[2021-07-20] MEDS: HYDROmorphone INJ 0.5 MG/0.5 ML SYR IV PRN ×6 (02:49→23:23)
[2021-07-20] MEDS: oxyCODONE HCL IR 5 MG TAB (IMMEDIATE RELEASE) PO PRN ×5 (02:54→21:47)
[2021-07-20] MEDS ORDERED: LORazepam 1 MG TAB PO STA (03:19)
[2021-07-20] MEDS: INSULIN GLARGINE SOLOSTAR 100 UNITS/ML 3 ML PEN SC SCH (09:15)
[2021-07-20] MEDS: INSULIN ASPART 100 UNITS/ML 3 ML PEN SC SCH ×4 (09:15→21:06)
[2021-07-20] MEDS: LORazepam 1 MG TAB PO SCH ×3 (09:16→20:44)
--- NOTE | 2021-07-20 09:16 | Pharmacy Report ---
Pharmacy Glycemic Short Note 2 - Date of Service July 20, 2021 - Glycemic Short BSG Results (Last 24 hours): 07/19/21 07/19/21 07/19/21 08:40 12:25 17:19 Glucose 139 H POC Glucose 133 H 90 07/19/21 07/20/21 20:54 08:22 Glucose POC Glucose 167 H 145 H OUTPATIENT ANTIDIABETIC REGIMEN: * Lantus 40 units HS * Humalog 10 units TIDM * HbA1C = 11.1% 07/15/21 ASSESSMENT: 07/20/21 * Patient's BSGs yesterday were 631-412-82-167 mg/dL and fasting today is 145 mg/dL. * Patient received 29 units of insulin yesterday with 20 units of basal and 9 units of bolus.. * Follow scale- increase Lantus by 20% due to fasting BSG > 140 mg/dL. * Continue Novolog 07/19/21 * Patient's BSGs yesterday were 30-22-797-110 mg/dL and fasting today is 130 mg/dL. * Patient received 7 units of insulin yesterday with 0 units of basal and 7 units of bolus.. * Fasting trending up well so restart insulin at Lantus 20 units. This is half of patient's home dose. * Continue Novolog BACKGROUND * Ms Witt is a 56 y/o F with a PMH of T2DM insulin dependent with elevated HbA1C who presents with R foot abscess and osteomyelitis. * Patient underwent I&D with removal of bone and toe nail on 07/16/21. * BSGs over the past 24 hours have been 79-37-618-151 mg/dL. * She received 21 units of insulin (15 units of basal and 6 units of bolus). * Over the past several days, patient has received decreasing amounts of bolus insulin (40 units on the 3rd then 30 units and only 15 units last night). BSG is still lower this morning at 75 mg/dL. May be due to larger amounts of basal previously received. * Will give scale Lantus for tonight. Careful with decreasing Lantus too quickly to prevent rebound hyperglycemia. * Novolog continue. PLAN FOR INPATIENT GLYCEMIC CONTROL: * Hold outpatient oral diabetes medications * Basal insulin * Lantus 15-25 units SQ daily * Bolus insulin * NovoLog per scale ACHS or Q6hrs while NPO * Goal Range: Low 110 mg/dL - High 140 mg/dL * Correction Factor: 30 mg/dL/unit * Nutritional / Prandial insulin per carb ratio of 1 unit per 10 grams CHO consumed PLAN FOR DISCHARGE: * Patient is set up with endocrinology for close follow-up. * Could discharge on Lantus 25 units daily with initiation of bolus insulin per endocrinology. * Recommend follow-up with them.
[2021-07-20] MEDS: DOCUSATE SODIUM 100 MG CAP PO SCH ×2 (09:17→20:33)
[2021-07-20] MEDS: CYCLOBENZAPRINE HCL 10 MG TAB PO SCH ×3 (09:17→20:34)
[2021-07-20] MEDS: MULTIVITAMIN TAB PO SCH (09:17)
[2021-07-20] MEDS: ACETAMINOPHEN 500 MG TAB PO SCH ×3 (09:18→20:44)
[2021-07-20] MEDS: lisinopril 20 MG TAB PO SCH (09:18)
[2021-07-20] MEDS: PANTOprazole 40 MG TAB PO SCH (09:18)
[2021-07-20] MEDS: ASPIRIN 81 MG ECTAB PO SCH (09:18)
[2021-07-20] MEDS: METOPROLOL SUCC 50MG EXT REL TAB PO SCH (09:18)
[2021-07-20] MEDS: cefTRIAXone SODIUM 2,000 MG in DEXTROSE 5% 50 ML IV SCH (17:58)
--- NOTE | 2021-07-20 18:47 | Hospitalist Progress Note ---
Date of Service July 20, 2021 Assessment & Plan (1) Toe ulcer, right: Plan: Patient is a 56 year old female with PMHx DM2, HLD, Peripheral Neuropathy, PAD that presents with chief complaint of worsening pain of her R foot and at the recommendation of her International Coordinator Dr. Lin to come to the ED for treatment of suspected infection of her R great toe ulceration. 1) Right foot ulcer with abscess -CT bilateral LE: small 6mm rim-enhancing subcutaneous fluid collection along the plantar medial aspect of the R first metatarsophalangeal joint and adjacent infiltration, consistent with a small abscess -MRI with minimal marrow edema vs failure of fat suppression involving the tuft of the first distal phalanx, likely osteitis -- However with clinical findings suggestive of osteomyelitis of the distal phalanx of the R great toe with abscess - S/P I&D and exostectomy on 07/16 -H/O of MRSA infection -Continue Daptomycin; Change Zosyn to Rocephin -- BCx with NGTD; Foot Cx with NGTD; pathology with mild acute inflammation, focal osteonecrosis, and periosteal reactive cellular changes - Continue pain and bowel regimen - pain has been difficult to control - Vascular consulted - do not feel related to ischemia or emboli; arterial perfusion adequate for wound healing and surgical wound healing; no need for additional invasive vascular testing/revascularization at this time - Ortho consulted -- WBAT on heel only with cast shoe - Wound care following - cleanse with saline; cover with Xeroform, 4x4, and Kerlix - change every day or more to prevent dressing sticking to wound bed - ID consultation - Abx as above - looking at 4-6 weeks unless amputation or go od bone infection margins obtained; could possibly consider soft tissue treatment if no osteo remaining -- Discussed with orthopedics - it appears they did get could margins from intervention but would still recommend IV Abx at this time; planning to monitor the wound at this time without further intervention; Rx sent to case management for infusion company but likely cannot start until Sunday due to staffing; has U/S guided line but may need to consider PICC line given the length of time and will discuss with IV team 2) LUQ pain - Reports improvement today - no acute abdominal findings -- Suspect a component of constipation contributing -Protonix daily -KUB - no obstructive findings; moderate well-formed stool within the stool 3) Candiduria -urinary urgency past 3 months -urine culture grew diamante -Diflucan 150mg PO x1 completed 4) Chronic cough -mild cough; remains on RA - Continue Fluticasone/Vilanterol 3) DM2 - A1c - 11.1 -Cont. with ssi (given low PO intake, basal insulin has been stopped). - Appreciate glycemic consult recommendations -senior health educator consult appreciated -- Recommend Metformin 500 mg BID as outpatient (was previously on that but stopped as it was "drying" her out); will better streamline closer to D/C -set up with restorative art embalmer outpatient for diabetes management -monitor BSG 4) PAD -Dr. Lin ordered a brachial ankle index which revealed a right ratio of 0.69 indicative of peripheral artery disease -Will follow vascular's recommendations. 5) HLD -Cont. home Lipitor 6) HTN -Cont. home Zestril -Cont. home Metroprolol 7) Facial Rash - Had a R sided pruritic facial rash that responded to benadryl - almost fully resolved minus a patch to the R cheek -- No eye involvement, no vision changes, no respiratory compromise -- Uncertain of etiology - will try some Benadryl cream Dispo: Will need home infusion set-up - challenge due to staffing - has U/S guided currently - will need weekly CMP, CBC with diff, CPK and biweekly CRP Admission and Anticipated Discharge Date Admission Date: July 14, 2021 Subjective Overnight patient had an anxiety attack. Seems to be doing better today and having her at bedside seemed to help. She continues to have hard to control pain but is trying to oral options but still needing IV for breakthrough pain. She does have some darker discoloration on the toe which is being watched. Plan for home Abx Review of Systems Review of Systems: All systems reviewed & are unremarkable except as noted in Subjective Physical Exam Physical Exam: PHYSICAL EXAM General Appearance: WDWN in NAD who is A&O x 3 HEENT: Head is normocephalic/atraumatic; Hearing grossly intact; mildly eryth ematous dry patch on R check not extending around eye, no drainage or warmth. Patient reports itchiness at site Neck: Supple; Trachea midline; Neg JVD Heart: RRR with no M/G/R Lungs: CTA in all lung cardozo bilaterally; Respirations unlabored; Neg accessory muscle use Abdomen: Soft, non-tender, non-distended; Positive BS x 4 quadrants Extremities: Neg cyanosis or edema; R great toe with nail bed removed and sutures applied to tip of toe with well approximated incision; medial incision with suture and well approximated incision with some edema and bruising. No purulent drainage noted; small area of black tissue on the medial aspect of the great toe and L tip of nail bed (picture in chart) Neurological: Speech clear; Gross motor/sensory function intact; Neg focal neurologic deficits Psychiatric: Appropriate mood/affect Skin: Normal Color; Warm/Dry; other than mentioned above Results & Data Results & Data ([facility]) Vital Signs (Past 12 Hours) Vital Signs Temp Pulse Resp BP BP Pulse Ox 07/20/21 15:21 36.6 C 79 18 127/76 95 07/20/21 07:24 36.6 C 85 18 148/72 H 96 PG Care Time/CCT Total # of Minutes Spent Total Time Spent with Patient: Total time spent is greater than 50% in coordination of care (as documented) at patient's floor/unit and/or counseling patient: Coding Level of Care Code 79871 Subseq Hosp Care Lvl 3 Diagnoses Toe ulcer, right L97.519
[2021-07-20] MEDS: NORTRIPTYLINE HCL 25 MG CAP PO SCH (20:34)
[2021-07-20] MEDS: ATORVASTATIN 40 MG TAB PO SCH (20:34)
[2021-07-20] MEDS: ENOXAPARIN INJ 40 MG/0.4 ML SYR SQ SCH (20:34)
[2021-07-20] MEDS: rOPINIRole HCL 2 MG TABLET PO SCH (20:34)
[2021-07-20] MEDS: SENNA 8.6 MG TAB PO SCH (20:34)
[2021-07-20] MEDS: FLUTICASONE/VILANTEROL 100/25MCG 14 PUFFS/INHALER INH SCH (20:38)
[2021-07-20] MEDS: ZOLPIDEM TARTRATE 10 MG TAB PO SCH (20:44)
[2021-07-21] MEDS: HYDROmorphone INJ 0.5 MG/0.5 ML SYR IV PRN ×6 (04:16→23:27)
[2021-07-21] MEDS: oxyCODONE HCL IR 5 MG TAB (IMMEDIATE RELEASE) PO PRN (05:34)
[2021-07-21] MEDS: lisinopril 20 MG TAB PO SCH (08:00)
[2021-07-21] MEDS: CYCLOBENZAPRINE HCL 10 MG TAB PO SCH ×3 (08:00→19:44)
[2021-07-21] MEDS: LORazepam 1 MG TAB PO SCH ×3 (08:00→20:00)
[2021-07-21] MEDS: DOCUSATE SODIUM 100 MG CAP PO SCH ×2 (08:00→19:44)
[2021-07-21] MEDS: MULTIVITAMIN TAB PO SCH (08:01)
[2021-07-21] MEDS: ASPIRIN 81 MG ECTAB PO SCH (08:01)
[2021-07-21] MEDS: METOPROLOL SUCC 50MG EXT REL TAB PO SCH (08:01)
[2021-07-21] MEDS: ACETAMINOPHEN 500 MG TAB PO SCH ×3 (08:02→20:00)
[2021-07-21] MEDS: INSULIN GLARGINE SOLOSTAR 100 UNITS/ML 3 ML PEN SC SCH (09:04)
[2021-07-21] MEDS: INSULIN ASPART 100 UNITS/ML 3 ML PEN SC SCH ×4 (09:05→20:11)
--- NOTE | 2021-07-21 09:41 | Orthopedic Progress Note ---
Date of Service July 21, 2021 Assessment & Plan (1) Cellulitis: Plan: POD 4 s/p Incision and Drainage Extremity Right Foot Abcess, Resection Nail Plate Great Toe Great toe wound appears to be worsening since last seen. Having pain beyond normal I&D and requiring higher doses of pain medications. Will discuss with Dr. Montaño. Question need of toe amputation. WBAT on heel only with cast shoe. Cx NGTD Daily dressing changes. Admission and Anticipated Discharge Date Admission Date: July 14, 2021 Subjective POD 4 Pt awake and alert. States she continues to have moderate to severe pain. Becomes tearful about her situation. I was texted yesterday by nursing and wound care about an area on her great toe that was appearing to demarcate. Pictures reviewed that were taken by wound care. Physical Exam Physical Exam: Great toe showing changes today compared to pictures yesterday. Appears to be possibly demarcating. Pt's foot very painful when examining. Medial wound appears ok. Less erythema. Wounds redressed with multiple layers of xeroform, 4x4's, kerlix wrap. Results & Data ([facility]) Vital Signs (Past 12 Hours) Vital Signs Temp Pulse Resp BP BP Pulse Ox 07/21/21 07:06 36.7 C 103 H 20 184/94 H 99 07/20/21 21:47 36.7 C 77 16 137/80 94
--- NOTE | 2021-07-21 14:40 | Hospitalist Progress Note ---
Date of Service July 21, 2021 Assessment & Plan (1) Toe ulcer, right: Plan: Patient is a 56 year old female with PMHx DM2, HLD, Peripheral Neuropathy, PAD that presents with chief complaint of worsening pain of her R foot and at the recommendation of her Combat Systems Operator Dr. Lin to come to the ED for treatment of suspected infection of her R great toe ulceration. 1) Right foot ulcer with abscess -CT bilateral LE: small 6mm rim-enhancing subcutaneous fluid collection along the plantar medial aspect of the R first metatarsophalangeal joint and adjacent infiltration, consistent with a small abscess -MRI with minimal marrow edema vs failure of fat suppression involving the tuft of the first distal phalanx, likely osteitis -- However with clinical findings suggestive of osteomyelitis of the distal phalanx of the R great toe with abscess - S/P I&D and exostectomy on 07/16 -H/O of MRSA infection -Continue Daptomycin; Change Zosyn to Rocephin -- BCx with NGTD; Foot Cx with NGTD; pathology with mild acute inflammation, focal osteonecrosis, and periosteal reactive cellular changes - Continue pain and bowel regimen - pain has been difficult to control - Vascular consulted - do not feel related to ischemia or emboli; arterial perfusion adequate for wound healing and surgical wound healing; no need for additional invasive vascular testing/revascularization at this time - Ortho consulted - discussed with Kaushik -- WBAT on heel only with cast shoe -- Given ongoing pain and worsening blackened area - consideration for toe amputation - Wound care following - cleanse with saline; cover with Xeroform, 4x4, and Kerlix - change every day or more to prevent dressing sticking to wound bed - ID consultation - Abx as above - looking at 4-6 weeks unless amputation or good bone infection margins obtained; could possibly consider soft tissue treatment with orals if no osteo remaining -- Discussed with orthopedics - it appears they did get could margins from intervention but would still recommend IV Abx at this time; planning to monitor the wound at this time but leaning towards amputation on Sunday; Rx sent to case management for infusion company but likely cannot start until Sunday due to staffing; has U/S guided line but may need to consider PICC line given the length of time and will discuss with IV team but plan may change pending amputation 2) LUQ pain - Reports improvement - no acute abdominal findings -- Suspect a component of constipation contributing -Protonix daily -KUB - no obstructive findings; moderate well-formed stool within the stool 3) Candiduria -urinary urgency past 3 months -urine culture grew diamante -Diflucan 150mg PO x1 completed 4) Chronic cough -mild cough; remains on RA - Continue Fluticasone/Vilanterol 3) DM2 - A1c - 11.1 -Cont. with ssi (given low PO intake, basal insulin has been stopped). - Appreciate glycemic consult recommendations -distance learning technician consult appreciated -- Recommend Metformin 500 mg BID as outpatient (was previously on that but stopped as it was "drying" her out); will better streamline closer to D/C -set up with polymerization engineer outpatient for diabetes management -monitor BSG 4) PAD -Dr. Lin ordered a brachial ankle index which revealed a right ratio of 0.69 indicative of peripheral artery disease -Will follow vascular's recommendations. 5) HLD -Cont. home Lipitor 6) HTN -Cont. home Zestril -Cont. home Metroprolol 7) Facial Rash - Had a R sided pruritic facial rash that responded to benadryl - resolved minus some mild dry skin on R cheek -- No eye involvement, no vision changes, no respiratory compromise -- Uncertain of etiology - will try some Benadryl cream Dispo: Will need home infusion set-up as of now but may change pending amputation - challenge due to staffing - has U/S guided currently but may need PICC if still doing IV Abx - will need weekly CMP, CBC with diff, CPK and biweekly CRP Admission and Anticipated Discharge Date Admission Date: July 14, 2021 Subjective Continues to have uncontrolled pain in the great toe. Reviewed pictures with Kaushik which shows worsening of the blackened area compared to yesterday afternoon and question this as the culprit of her ongoing pain. Given the level of pain it is anticipated she may have the toe amputated possibly on Sunday. She reports a lot of anxiety but does calm down when you talk and distract her some. She just worries a lot about the things she needs to do at home and just getting discouraged with the medical issue. She is tolerating a diet. Verbalizes no new complaints Review of Systems Review of Systems: All systems reviewed & are unremarkable except as noted in Subjective Physical Exam Physical Exam: PHYSICAL EXAM General Appearance: WDWN in NAD who is A&O x 3 HEENT: Head is normocephalic/atraumatic; Hearing grossly intact; No longer having erythema of the face; mild dry skin around R cheek Neck: Supple; Trachea midline; Neg JVD Heart: RRR with no M/G/R Lungs: CTA in all lung cardozo bilaterally; Respirations unlabored; Neg accessory muscle use Abdomen: Soft, non-tender, non-distended; Positive BS x 4 quadrants Extremities: Neg cyanosis or edema; R great toe with nail bed removed and sutures applied to tip of toe with well approximated incision; medial incision with suture and well approximated incision with some edema and bruising; area of black tissue on the medial aspect of the great toe and L tip of nail bed that has worsened some from yesterday (picture in chart from 07/20 and reviewed imaging taken by Kaushik) Neurological: Speech clear; Gross motor/sensory function intact; Neg focal neurologic deficits Psychiatric: Appropriate mood/affect Skin: Normal Color; Warm/Dry; other than mentioned above Results & Data Results & Data ([facility]) Vital Signs (Past 12 Hours) Vital Signs Temp Pulse Resp BP Pulse Ox 07/21/21 07:06 36.7 C 103 H 20 184/94 H 99 PG Care Time/CCT Total # of Minutes Spent Total Time Spent with Patient: Total time spent is greater than 50% in coordination of care (as documented) at patient's floor/unit and/or counseling patient: Coding Level of Care Code 37412 Subseq Hosp Care Lvl 3 Diagnoses Toe ulcer, right L97.519
[2021-07-21] MEDS: cefTRIAXone SODIUM 2,000 MG in DEXTROSE 5% 50 ML IV SCH (17:49)
[2021-07-21] MEDS: ATORVASTATIN 40 MG TAB PO SCH (20:00)
[2021-07-21] MEDS: SENNA 8.6 MG TAB PO SCH (20:00)
[2021-07-21] MEDS: ENOXAPARIN INJ 40 MG/0.4 ML SYR SQ SCH (20:00)
[2021-07-21] MEDS: NORTRIPTYLINE HCL 25 MG CAP PO SCH (20:01)
[2021-07-21] MEDS: rOPINIRole HCL 2 MG TABLET PO SCH (20:01)
[2021-07-21] MEDS: FLUTICASONE/VILANTEROL 100/25MCG 14 PUFFS/INHALER INH SCH (20:03)
[2021-07-21] MEDS: ZOLPIDEM TARTRATE 10 MG TAB PO SCH (20:09)
[2021-07-21] MEDS: DAPTOmycin 300 MG in SYRINGE 0 ML IV SCH (23:28)
[2021-07-22] MEDS: oxyCODONE HCL IR 5 MG TAB (IMMEDIATE RELEASE) PO PRN ×3 (00:36→13:12)
[2021-07-22] MEDS: HYDROmorphone INJ 0.5 MG/0.5 ML SYR IV PRN ×5 (02:26→19:28)
[2021-07-22 07:11] LABS: Creatinine Clr Calc Pharmacy 97.6 ml/min; Est GFR (African American) 119.3 ml/min; Est GFR (Non-African American) 102.9 ml/min
[2021-07-22] MEDS: CYCLOBENZAPRINE HCL 10 MG TAB PO SCH ×3 (08:31→20:34)
[2021-07-22] MEDS: DOCUSATE SODIUM 100 MG CAP PO SCH ×2 (08:32→20:37)
[2021-07-22] MEDS: ASPIRIN 81 MG ECTAB PO SCH (08:34)
[2021-07-22] MEDS: LORazepam 1 MG TAB PO SCH ×3 (08:34→20:34)
[2021-07-22] MEDS: lisinopril 20 MG TAB PO SCH (08:35)
[2021-07-22] MEDS: ACETAMINOPHEN 500 MG TAB PO SCH ×3 (08:35→20:35)
[2021-07-22] MEDS: METOPROLOL SUCC 50MG EXT REL TAB PO SCH (08:36)
[2021-07-22] MEDS: MULTIVITAMIN TAB PO SCH (08:36)
[2021-07-22] MEDS: INSULIN GLARGINE SOLOSTAR 100 UNITS/ML 3 ML PEN SC SCH (09:10)
[2021-07-22] MEDS: INSULIN ASPART 100 UNITS/ML 3 ML PEN SC SCH ×4 (09:12→20:41)
--- NOTE | 2021-07-22 12:10 | Pharmacy Report ---
Pharmacy Glycemic Short Note 2 - Date of Service July 22, 2021 - Glycemic Short BSG Results (Last 24 hours): 07/21/21 07/21/21 07/21/21 12:19 17:05 20:05 POC Glucose 75 165 H 93 07/22/21 08:19 POC Glucose 115 H OUTPATIENT ANTIDIABETIC REGIMEN: * Lantus 40 units HS * Humalog 10 units TIDM * HbA1C = 11.1% 07/15/21 ASSESSMENT: 07/22/21 * Patient continues to have pain with toe, possible amputation tomorrow, remains on IV Dapto + ceftriaxone * Patient's BSGs well controlled on 20 units basal, 2 units bolus insulin, low carb intake, CR loosened yesterday to prevent hypoglycemia * No further changes at this time 07/20/21 * Patient's BSGs yesterday were 278-871-74-167 mg/dL and fasting today is 145 mg/dL. * Patient received 29 units of insulin yesterday with 20 units of basal and 9 units of bolus.. * Follow scale- increase Lantus by 20% due to fasting BSG > 140 mg/dL. * Continue Novolog 07/19/21 * Patient's BSGs yesterday were 04-11-064-110 mg/dL and fasting today is 130 mg/dL. * Patient received 7 units of insulin yesterday with 0 units of basal and 7 units of bolus.. * Fasting trending up well so restart insulin at Lantus 20 units. This is half of patient's home dose. * Continue Novolog BACKGROUND * Ms Witt is a 56 y/o F with a PMH of T2DM insulin dependent with elevated HbA1C who presents with R foot abscess and osteomyelitis. * Patient underwent I&D with removal of bone and toe nail on 07/16/21. * BSGs over the past 24 hours have been 53-40-116-151 mg/dL. * She received 21 units of insulin (15 units of basal and 6 units of bolus). * Over the past several days, patient has received decreasing amounts of bolus insulin (40 units on the 3rd then 30 units and only 15 units last night). BSG is still lower this morning at 75 mg/dL. May be due to larger amounts of basal previously received. * Will give scale Lantus for tonight. Careful with decreasing Lantus too quickly to prevent rebound hyperglycemia. * Novolog continue. PLAN FOR INPATIENT GLYCEMIC CONTROL: * Basal insulin * Lantus 20 units SQ daily * Bolus insulin * NovoLog per scale ACHS or Q6hrs while NPO * Goal Range: Low 110 mg/dL - High 140 mg/dL * Correction Factor: 30 mg/dL/unit * Nutritional / Prandial insulin per carb ratio of 1 unit per 20 grams CHO consumed PLAN FOR DISCHARGE: * Patient is set up with endocrinology for close follow-up. * Could discharge on Lantus 20 units daily with initiation of bolus insulin per endocrinology. * Recommend follow-up with them.
--- NOTE | 2021-07-22 13:42 | Orthopedic Progress Note ---
Date of Service July 22, 2021 Assessment & Plan (1) Cellulitis: Plan: POD 5 s/p Incision and Drainage Extremity Right Foot Abcess, Resection Nail Plate Great Toe Great toe wound appears to be worsening since last seen. Having pain beyond normal I&D and requiring higher doses of pain medications. Discussed with prescriptionist Physician. Continue to watch for now. If patient continues to have the increased pain she's been having, plan will be for amputation of the toe tomorrow morning. Dr. Rushing will see pt prior to surgery to make final decision. WBAT on heel only with cast shoe. Cx NGTD Daily dressing changes. Admission and Anticipated Discharge Date Admission Date: July 14, 2021 Subjective Pt finishing her lunch currently. She appears a bit more comfortable today but is still using IV pain medications to help control her pain. Physical Exam Physical Exam: Dressing removed. Right great toe continues to demarcate. Looks a bit dryer today but noticeably darker compared to yesterday. Very painful to touch. Medial wound with mild erythema around the edges. No purulence. Small area of cracked skin at the base of the 4/5th toe. No changes with this area. DP pulse palpable. Results & Data ([facility]) Vital Signs (Past 12 Hours) Vital Signs Temp Pulse Resp BP Pulse Ox 07/22/21 08:41 36.6 C 82 16 171/85 H 95
[2021-07-22] MEDS ORDERED: LORazepam 1 MG/2 ML VIAL IV PRN (16:46)
[2021-07-22] MEDS: cefTRIAXone SODIUM 2,000 MG in DEXTROSE 5% 50 ML IV SCH (17:42)
--- NOTE | 2021-07-22 19:24 | Hospitalist Progress Note ---
Date of Service July 22, 2021 Assessment & Plan (1) Toe ulcer, right: Plan: Patient is a 56 year old female with PMHx DM2, HLD, Peripheral Neuropathy, PAD that presents with chief complaint of worsening pain of her R foot and at the recommendation of her Cnc Cutting Operator Dr. Lin to come to the ED for treatment of suspected infection of her R great toe ulceration. 1) Right foot ulcer with abscess -CT bilateral LE: small 6mm rim-enhancing subcutaneous fluid collection along the plantar medial aspect of the R first metatarsophalangeal joint and adjacent infiltration, consistent with a small abscess -MRI with minimal marrow edema vs failure of fat suppression involving the tuft of the first distal phalanx, likely osteitis -- However with clinical findings suggestive of osteomyelitis of the distal phalanx of the R great toe with abscess - S/P I&D and exostectomy on 07/16 -H/O of MRSA infection -Continue Daptomycin; Change Zosyn to Rocephin -- BCx with NGTD; Foot Cx with NGTD; pathology with mild acute inflammation, focal osteonecrosis, and periosteal reactive cellular changes - Continue pain and bowel regimen - pain has been difficult to control - Vascular consulted - do not feel related to ischemia or emboli; arterial perfusion adequate for wound healing and surgical wound healing; no need for additional invasive vascular testing/revascularization at this time - Ortho consulted - discussed with Kaushik today -- WBAT on heel only with cast shoe -- Given ongoing pain and worsening blackened area - consideration for toe amputation tomorrow AM - Wound care following - cleanse with saline; cover with Xeroform, 4x4, and Kerlix - change every day or more to prevent dressing sticking to wound bed - ID consultation - Abx as above - looking at 4-6 weeks unless amputation or good bone infection margins obtained; could possibly consider soft tissue treatment with orals if no osteo remaining -- Rx sent to case management for infusion company however may be worth message to ID again to obtain new recommendations given planned amputation 2) LUQ pain - Reports resolution - no acute abdominal findings -- Suspect a component of constipation contributing - moving bowels 3) Candiduria -urinary urgency past 3 months -urine culture grew diamante -Diflucan 150mg PO x1 completed 4) Chronic cough -mild cough; remains on RA - Continue Fluticasone/Vilanterol 3) DM2 - A1c - 11.1 -Cont. with ssi (given low PO intake, basal insulin has been stopped). - Appreciate glycemic consult recommendations -clinical informatics educator consult appreciated -- Recommend Metformin 500 mg BID as outpatient (was previously on that but stopped as it was "drying" her out); will better streamline closer to D/C -set up with grain elevator motor starter outpatient for diabetes management -monitor BSG 4) PAD -Dr. Lin ordered a brachial ankle index which revealed a right ratio of 0.69 indicative of peripheral artery disease -Will follow vascular's recommendations. 5) HLD -Cont. home Lipitor 6) HTN -Cont. home Zestril -Cont. home Metroprolol 7) Facial Rash - Had a R sided pruritic facial rash that responded to benadryl - resolved minus some mild dry skin on R cheek -- No eye involvement, no vision changes, no respiratory compromise -- Uncertain of etiology Dispo: Await amputation - did arrange for IV abx however now given amputation may change treatment plan - given DM likely need polymicrobial coverage - may need to consider pseudomonal coverage Admission and Anticipated Discharge Date Admission Date: July 14, 2021 Subjective Pt having a lot of pain today and very anxious. Wanted to leave AMA this afternoon but voiced mostly that was due to frustration. Talked with her for an extended period of time and she was able to calm down. She has a lot of fears about needing ongoing amputations and being away from home. She reports pain but most of our conversation is focused on stress. 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 She feels she is having so many medical problems it is taking away from her family. Towards the end of the conversation she was joking a bit more and was able to relax some. She is NPO at midnight with anticipation of toe amputation due to worsening necrotic tissue. She has been eating without issue but reports a decreased appetite. She is moving her bowels without difficulty Review of Systems Review of Systems: All systems reviewed & are unremarkable except as noted in Subjective Physical Exam Physical Exam: PHYSICAL EXAM General Appearance: WDWN in NAD who is A&O x 3 HEENT: Head is normocephalic/atraumatic; Hearing grossly intact; No longer having erythema of the face; mild dry skin around R cheek Neck: Supple; Trachea midline; Neg JVD Heart: RRR with no M/G/R Lungs: CTA in all lung cardozo bilaterally; Respirations unlabored; Neg accessory muscle use Abdomen: Soft, non-tender, non-distended; Positive BS x 4 quadrants Extremities: Neg cyanosis or edema; R great toe with nail bed removed and sutures applied to tip of toe with well approximated incision; medial incision with suture and well approximated incision with some edema and bruising; blackened tissue continues to expand covering most of the nail bed Neurological: Speech clear; Gross motor/sensory function intact; Neg focal neurologic deficits Psychiatric: Appropriate mood/affect - quickly gets tearful/anxious when pain is amplified Skin: Normal Color; Warm/Dry; other than mentioned above Results & Data Results & Data ([facility]) Vital Signs (Past 12 Hours) Vital Signs Temp Pulse Resp BP Pulse Ox 07/22/21 16:00 36.6 C 88 16 169/81 H 96 07/22/21 08:41 36.6 C 82 16 171/85 H 95 PG Care Time/CCT Total # of Minutes Spent Total Time Spent with Patient: Total time spent is greater than 50% in coordination of care (as documented) at patient's floor/unit and/or counseling patient: Coding Level of Care Code 68582 Subseq Hosp Care Lvl 3 Diagnoses Toe ulcer, right L97.519
[2021-07-22] MEDS: ENOXAPARIN INJ 40 MG/0.4 ML SYR SQ SCH (20:33)
[2021-07-22] MEDS: ZOLPIDEM TARTRATE 10 MG TAB PO SCH (20:34)
[2021-07-22] MEDS: rOPINIRole HCL 2 MG TABLET PO SCH (20:35)
[2021-07-22] MEDS: FLUTICASONE/VILANTEROL 100/25MCG 14 PUFFS/INHALER INH SCH (20:37)
[2021-07-22] MEDS: ATORVASTATIN 40 MG TAB PO SCH (20:37)
[2021-07-22] MEDS: NORTRIPTYLINE HCL 25 MG CAP PO SCH (20:38)
[2021-07-22] MEDS: SENNA 8.6 MG TAB PO SCH (20:38)
[2021-07-22] MEDS ORDERED: Nursing to Pharmacy Communication SCH (23:45)
[2021-07-23] MEDS: INSULIN ASPART 100 UNITS/ML 3 ML PEN SC SCH ×5 (00:36→21:12)
[2021-07-23] MEDS: DAPTOmycin 300 MG in SYRINGE 0 ML IV SCH ×2 (00:38→23:54)
[2021-07-23] MEDS: HYDROmorphone INJ 0.5 MG/0.5 ML SYR IV PRN ×7 (00:39→23:55)
[2021-07-23 06:34] LABS: Basophils # (auto) 0.04 K/uL (0-0.2); Basophils % (auto) 0.3 %; Eosinophils # (auto) 0.44 K/uL (0-0.5); Eosinophils % (auto) 3.8 %; Hematocrit (blood only) 38.8 % (37-47); Hemoglobin 12.5 g/dL (12.0-16.0); Immature Granulocytes # (auto) 0.02 K/uL (0.00-0.02); Immature Granulocytes % (auto) 0.2 %; Lymphocytes # (auto) 2.85 K/uL (1.2-3.4); Lymphocytes % (auto) 24.5 %; Mean Corpuscular Hemoglobin 27.2 pg (25-34); Mean Corpuscular Hgb Conc 32.2 g/dL (32-36); Mean Corpuscular Volume 84.5 fL (80-100); Mean Platelet Volume 10.8 fL (7.4-10.4); Monocytes # (auto) 1.08 K/uL (0.11-0.59); Monocytes % (auto) 9.3 %; Neutrophils # (auto) 7.18 K/uL (1.4-6.5); Neutrophils % (auto) 61.9 %; Platelet Count 374 K/uL (130-400); RDW Coefficient of Variation 13.9 % (11.5-14.5); RDW Standard Deviation 43.1 fL (36.4-46.3); Red Blood Count 4.59 M/uL (4.2-5.4); White Blood Count 11.61 K/uL (4.8-10.8)
[2021-07-23] MEDS ORDERED: fentaNYL citrate 100 MCG/2 ML VIAL ONE (06:53)
[2021-07-23] MEDS ORDERED: PROPOFOL IV EMULSION 10 MG/ML 20 ML VIAL IV ONE (06:53)
[2021-07-23] MEDS ORDERED: MIDAZOLAM HCL 1 MG/ML 2ML VIAL ONE (06:54)
[2021-07-23 07:03] LABS: Albumin Level 3.5 gm/dl (3.4-5.0); BUN Creatinine Ratio 21.6 (10-20); C Reactive Protein 0.76 mg/dl (0-0.29); Calcium 9.2 mg/dl (8.5-10.1); Creatinine Clr Calc Pharmacy 95.9 ml/min; Est GFR (African American) 118.6 ml/min; Est GFR (Non-African American) 102.3 ml/min; Potassium 3.9 mmol/L (3.5-5.1)
[2021-07-23 07:06] LABS: Albumin Globulin Ratio 0.9 (0.9-2); Bilirubin,Total 0.3 mg/dl (0.2-1); Globulin 3.9 gm/dl (2.5-4.0); Total Protein 7.4 gm/dl (6.4-8.2)
--- NOTE | 2021-07-23 07:41 | Anesthesiology Consultation ---
Date of Service July 23, 2021 Assessment & Plan (1) Encounter for pre-operative examination: Chart Review Chart Review: Acceptable Risk for Surgery History Surgery Operation Date: 07/16/21 11:00 Proposed Procedures p Incision and Drainage Extremity Right Foot Abcess(Right) - Akhil Montaño DO Operation Date: 07/23/21 07:30 Proposed Procedures p Partial Amputation Right Great Toe - Adonis Rushing MD Height/Weight Height: 5 ft 2 in Weight: 66.8 kg Allergies Allergy/AdvReac Type Severity Reaction Status Date / Time morphine Allergy Severe blisters Verified 07/14/21 20:58 in mouth Sulfa (Sulfonamide Allergy Severe rash/swelli Verified 07/14/21 20:58 Antibiotics) ng vancomycin Allergy Intermediate YULIYA Verified 07/14/21 20:58 SYNDROME Medications Home Medications Medication Instructions Recorded Confirmed Last Taken aspirin 81 mg tablet,delayed 81 mg PO QAM 10/19/20 07/14/21 07/11/21 release (Aspirin Low Dose) cyclobenzaprine 10 mg tablet 10 mg PO TID 10/19/20 07/14/21 07/11/21 nortriptyline 50 mg capsule 100 mg PO HS 10/19/20 07/14/21 07/11/21 (Pamelor) ropinirole 2 mg tablet 4 mg PO HS 10/19/20 07/14/21 07/11/21 zolpidem 10 mg tablet (Ambien) 10 mg PO HS 10/19/20 07/14/21 07/11/21 lancets (OneTouch UltraSoft #100 ea 11/12/20 07/14/21 Unknown Lancets) atorvastatin 40 mg tablet (Lipitor) 40 mg PO HS 01/24/21 07/14/21 07/11/21 lisinopril 10 mg tablet (Zestril) 10 mg PO QAM 01/24/21 07/14/21 07/11/21 lorazepam 1 mg tablet (Ativan) 1 mg PO TID #21 tab 01/28/21 07/14/21 07/11/21 albuterol sulfate 90 mcg/actuation 1 puff INHALATION QID PRN 03/05/21 07/14/21 03/05/21 aerosol inhaler (Proventil HFA) insulin glargine 100 unit/mL (3 40 unit SUBCUT HS 03/05/21 07/14/21 07/11/21 mL) subcutaneous pen (Basaglar KwikPen U-100 Insulin) insulin lispro 100 unit/mL 10 unit SUBCUT TIDM 03/05/21 07/14/21 07/11/21 subcutaneous pen (Humalog KwikPen (U-100) Insulin) metoprolol succinate 50 mg 50 mg PO QAM 03/05/21 07/14/21 07/11/21 tablet,extended release 24 hr (Toprol XL) Active Medications Generic Name Dose Route Start Last Admin Trade Name Freq PRN Reason Stop Dose Admin Acetaminophen 1,000 mg 07/19/21 14:00 07/22/21 20:35 Acetaminophen 500 Mg Tab PO 08/18/21 13:59 1,000 mg TID RICKY Administration Aspirin 81 mg 07/15/21 09:00 07/22/21 08:34 Aspirin 81 Mg Ectab PO 08/14/21 08:59 81 mg QAM RICKY Administration Atorvastatin Calcium 40 mg 07/15/21 21:00 07/22/21 20:37 Atorvastatin 40 Mg Tab PO 08/14/21 20:59 40 mg HS RICKY Administration Cyclobenzaprine HCl 10 mg 07/15/21 09:00 07/22/21 20:34 Cyclobenzaprine Hcl 10 Mg Tab PO 08/14/21 08:59 10 mg TID RICKY Administration Docusate Sodium 100 mg 07/16/21 21:00 07/22/21 20:37 Docusate Sodium 100 Mg Cap PO 08/15/21 20:59 Not Given BID RICKY Enoxaparin Sodium 40 mg 07/15/21 21:00 07/22/21 20:33 Enoxaparin Inj 40 Mg/0.4 Ml Syr SQ 08/13/21 23:01 40 mg HS RICKY Administration Fluticasone/Vilanterol 1 puffs 07/17/21 21:00 07/22/21 20:37 Fluticasone/Vilanterol 100/25mcg 14 Puffs/Inhaler INH 08/16/21 20:59 1 puffs HS RICKY Administration Hydromorphone HCl 1 mg 07/15/21 04:35 07/23/21 04:58 Hydromorphone Inj 0.5 Mg/0.5 Ml Syr IV 07/28/21 23:01 1 mg Q3H PRN Administration Pain (6,7,8,9,10) Hydromorphone HCl 0.5 mg 07/15/21 04:35 07/20/21 23:23 Hydromorphone Inj 0.5 Mg/0.5 Ml Syr IV 07/28/21 23:01 0.5 mg Q3H PRN Administration Pain (1,2,3,4,5) & Pre PT Daptomycin 300 mg/ Syringe 6 mls @ 3 mls/min 07/16/21 00:00 07/23/21 00:38 IV 08/27/21 00:00 3 mls/min Q24H RICKY Administration Protocol Ceftriaxone Sodium 2,000 mg/ 70 mls @ 100 mls/hr 07/19/21 18:00 07/22/21 18:26 Dextrose IV 08/30/21 17:59 Infused Q24H RICKY Infusion Protocol Insulin Aspart 0 units 07/23/21 00:00 07/23/21 06:09 Insulin Aspart 100 Units/Ml 3 Ml Pen SC 08/22/21 00:00 Not Given Q6 RICKY Insulin Glargine 0 units 07/20/21 09:00 07/22/21 09:10 Insulin Glargine Solostar 100 Units/Ml 3 Ml Pen SC 08/19/21 08:59 20 units DAILY RICKY Administration Protocol Lisinopril 20 mg 07/16/21 09:00 07/22/21 08:35 Lisinopril 20 Mg Tab PO 08/15/21 08:59 20 mg QAM RICKY Administration Lorazepam 1 mg 07/15/21 09:00 07/22/21 20:34 Lorazepam 1 Mg Tab PO 08/14/21 08:59 1 mg TID RICKY Administration Metoprolol Succinate 50 mg 07/15/21 09:00 07/22/21 08:36 Metoprolol Succ 50mg Ext Rel Tab PO 08/14/21 08:59 50 mg QAM RICKY Administration Miscellaneous 15 - 30 gm 07/16/21 17:45 07/16/21 17:53 Carbohydrates For Hypoglycemia PO 08/15/21 17:44 15 gm UD PRN Administration Hypoglycemia Treatment Multivitamins 1 tab 07/17/21 09:00 07/22/21 08:36 Multivitamin Tab PO 08/16/21 08:59 1 tab QAM RICKY Administration Nortriptyline HCl 100 mg 07/15/21 21:00 07/22/21 20:38 Nortriptyline Hcl 25 Mg Cap PO 08/14/21 20:59 100 mg HS RICKY Administration Ondansetron HCl 4 mg 07/16/21 11:40 07/23/21 00:50 Ondansetron Inj 2 Mg/Ml 2 Ml Vial IV 08/15/21 11:39 4 mg Q6H PRN Administration Nausea And Vomiting Ropinirole HCl 4 mg 07/15/21 21:00 07/22/21 20:35 Ropinirole Hcl 2 Mg Tablet PO 08/14/21 20:59 4 mg HS RICKY Administration Sennosides 17.2 mg 07/16/21 21:00 07/22/21 20:38 Senna 8.6 Mg Tab PO 08/15/21 20:59 Not Given HS RICKY Zinc Acetate/Diphenhydramine 1 appln 07/19/21 21:00 07/22/21 20:39 Diphenhydramine 2%/Zinc 0.1% Cream 28gm Tube EXT 08/18/21 20:59 Not Given BID RICKY Zolpidem Tartrate 10 mg 07/15/21 21:00 07/22/21 20:34 Zolpidem Tartrate 10 Mg Tab PO 08/14/21 20:59 10 mg HS RICKY Administration NPO Date Last Intake of Fluids: 07/22/21 Time Last Intake of Fluids: 23:59 Date Last Intake of Solids: 07/22/21 Time Last Intake of Solids: 23:59 Past Medical History Medical History Chronic back pain Depression DM2 (diabetes mellitus, type 2) Gastritis GIB (gastrointestinal bleeding) Hyperlipidemia Insulin dependent diabetes mellitus Nonobstructive atherosclerosis of coronary artery Peripheral neuropathy Seizures Past Family History Family History Mother , age 63 Myocardial infarction Father , age 68 or 69 Myocardial infarction Brother S/P CABG (coronary artery bypass graft) Sister Myocardial infarction x 3; she is 57yo Past Surgical History Surgical History History of cardiac cath done at [facility]; 09/22/19; LM - mild luminal irregularities. LAD - mid 20-30%, distal with myocardial bridge & 30% stenosis. L Cx - mild luminal irregularities. RCA - proximal <30% stenosis; mid/distal vessel mild plaques. PDA - mild luminal irregularities. History of esophagogastroduodenoscopy (EGD) Social History Smoking Status: Former smoker tobacco type: cigarettes Smoking cigarettes per day: 1 PPD for 20 years Do You Dip or Chew Tobacco: No Hx Alcohol Use: No Hx Substance Use: Yes substance use type: marijuana Substance Use Type Other:: Pt. uses medical marijuana Last Used Substance: Unknown Physical Exam Vital Signs Last Vital Signs Temp 36.9 C 07/23/21 00:05 Pulse 78 07/23/21 00:05 Resp 18 07/23/21 00:05 BP 120/63 07/23/21 00:05 Pulse Ox 91 07/23/21 00:05 Testing Laboratory Results 07/23/21 05:33 07/23/21 05:33 PT 9.7 Seconds (9.0-12.0) 07/14/21 14:42 INR 1.0 (0.9-1.1) 07/14/21 14:42 Hemoglobin A1c 11.1 % (4.5-5.6) H 07/15/21 Unknown Urine Color Yellow 07/14/21 23:25 Urine Appearance Clear (Clear) 07/14/21 23:25 Urine pH 6.0 (4.5-7.5) 07/14/21 23:25 Ur Specific [place] > 1.030 (1.000-1.030) H 07/14/21 23:25 Urine Protein Trace (Negative) H 07/14/21 23:25 Urine Glucose (UA) 2+ (Negative) H 07/14/21 23:25 Urine Ketones Negative (Negative) 07/14/21 23:25 Urine Nitrite Negative (Negative) 07/14/21 23:25 Ur Leukocyte Esterase Negative (Negative) 07/14/21 23:25 Urine WBC (Auto) >30 /hpf (0-5) H 07/14/21 23:25 Urine RBC (Auto) 0-4 /hpf (0-4) 07/14/21 23:25 U Hyaline Cast (Auto) 0 /lpf (0-5) 07/14/21 23:25 U Epithel Cells (Auto) >30 /lpf (0-5) H 07/14/21 23:25 Urine Bacteria (Auto) Negative (Negative) 07/14/21 23:25 07/16/21 11:50 Gram Stain - Final Foot,Right Aerobic and Anaerobic Culture - Final No growth 07/14/21 22:55 Aerobic Blood Culture - Final Blood No growth in Aerobic bottle after 5 days. Anaerobic Blood Culture - Final No growth in Anaerobic bottle after 5 days. 07/14/21 22:55 Aerobic Blood Culture - Final Blood No growth in Aerobic bottle after 5 days. Anaerobic Blood Culture - Final 07/14/21 23:25 Urine Culture - Final Urine,Clean Catch Dorota glabrata complex 07/23/21 07/23/21 07/22/21 06:05 00:04 20:30 POC Glucose 120 H 168 H 171 H Electrocardiogram Date: 03/08/21 Findings: + NSR @ (71) Echocardiogram Date: 01/24/21 EF: 65% Other Findings: + diastolic dysfunction (mild) Valvular Disease: + no significant valvular disease
[2021-07-23] MEDS: DOCUSATE SODIUM 100 MG CAP PO SCH ×2 (08:29→20:09)
[2021-07-23] MEDS: ACETAMINOPHEN 500 MG TAB PO SCH ×3 (08:29→20:08)
[2021-07-23] MEDS: ASPIRIN 81 MG ECTAB PO SCH (08:54)
[2021-07-23] MEDS: MULTIVITAMIN TAB PO SCH (08:54)
[2021-07-23] MEDS: lisinopril 20 MG TAB PO SCH (08:54)
[2021-07-23] MEDS ORDERED: ceFAZolin 1000MG 1,000 MG/7.5 ML SYR IV ONE (08:54)
--- NOTE | 2021-07-23 09:10 | Progress Notes ---
SUBJECTIVE: The patient is seen in followup. Today, she has increasing pain in the right great toe, status post I and D of osteomyelitis. Pain has been unrelenting. OBJECTIVE: Right great toe examination does show eschar at the tip of the toe. She has surrounding erythema, which does appear to be mostly dysvascular in nature. I did not detect any streaking eryth vero or gross purulence. ASSESSMENT: Right dysvascular great toe. PLAN: I discussed findings and treatment. At this point in time, she has had unrelenting pain after surgery and I feel her wound is not healing appropriately, I think due to the dysvascular status of the tip. We discussed options of amputation at level of interphalangeal joint versus MTP joint. I f eel the most reasonable course of action is to amputate the IP level. She does appear to have a reas onable circulation at that level. She understands possibly it may not heal, possibly continued infec tion, etc. Risks and benefits have been discussed including, but not limited to, infections, stiffne ss, decreased motion, decreased function, etc. She is agreeable and wished to proceed. Job ID: [id number]
[2021-07-23] MEDS: LORazepam 1 MG TAB PO SCH ×3 (09:16→20:10)
[2021-07-23] MEDS: CYCLOBENZAPRINE HCL 10 MG TAB PO SCH ×3 (09:16→20:11)
[2021-07-23] MEDS: METOPROLOL SUCC 50MG EXT REL TAB PO SCH (09:23)
[2021-07-23] MEDS: INSULIN GLARGINE SOLOSTAR 100 UNITS/ML 3 ML PEN SC SCH (09:26)
--- NOTE | 2021-07-23 09:58 | Hospitalist Progress Note ---
Date of Service July 23, 2021 Assessment & Plan (1) Toe ulcer, right: Plan: Patient is a 56 year old female with PMHx DM2, HLD, Peripheral Neuropathy, PAD that presents with chief complaint of worsening pain of her R foot and at the recommendation of her It Architecture Consultant Dr. Lin to come to the ED for treatment of suspected infection of her R great toe ulceration. 1) Right foot ulcer with abscess, involving the Great toe -CT bilateral LE: small 6mm rim-enhancing subcutaneous fluid collection along the plantar medial aspect of the R first metatarsophalangeal joint and adjacent infiltration, consistent with a small abscess -MRI with minimal marrow edema vs failure of fat suppression involving the tuft of the first distal phalanx, likely osteitis -- However with clinical findings suggestive of osteomyelitis of the distal phalanx of the R great toe with abscess - S/P I&D and exostectomy on 07/16, returned to the OR 07/23 with distal amputation of the right great toe no description as to significant purulence makes concerned that this is going to remedy her significant pain issue. -H/O of MRSA infection -Continue Daptomycin; Rocephin --He was cultures have been negative await further intraoperative cultures performed 1210 - Vascular consulted - do not feel related to ischemia or emboli; arterial perfusion adequate for wound healing and surgical wound healing; no need for additional invasive vascular testing/revascularization at this time - - Wound care following - cleanse with saline; cover with Xeroform, 4x4, and Kerlix - change every day or more to prevent dressing sticking to wound bed - ID consultation - Abx as above - looking at 4-6 weeks unless amputation or good bone infection margins obtained; could possibly consider soft tissue treatment with orals if no osteo remaining -- Rx sent to case management for infusion [employer] however may be worth message to ID again if cultures after amputation change the bacterial milieu 2) LUQ pain - Reports resolution - no acute abdominal findings -- Suspect a component of constipation contributing -resolved with improved pain 3) Candiduria -urinary urgency past 3 months -urine culture grew diamante -Diflucan 150mg PO x1 completed 4) Chronic cough -mild cough; remains on RA - Continue Fluticasone/Vilanterol 3) DM2 - A1c - 11.1 -Cont. with ssi (given low PO intake, basal insulin has been stopped). - Appreciate glycemic consult recommendations -life educator consult appreciated -- Recommend Metformin 500 mg BID as outpatient (was previously on that but stopped as it was "drying" her out); will better streamline closer to D/C -set up with fire tender outpatient for diabetes management -monitor BSG 4) PAD -Dr. Lin ordered a brachial ankle index which revealed a right ratio of 0.69 indicative of peripheral artery disease -Will follow vascular's recommendations. 5) HLD -Cont. home Lipitor 6) HTN -Cont. home Zestril -Cont. home Metroprolol 7) Facial Rash - Had a R sided pruritic facial rash that responded to benadryl - resolved minus some mild dry skin on R cheek -- No eye involvement, no vision changes, no respiratory compromise -- Uncertain of etiology Admission and Anticipated Discharge Date Admission Date: July 14, 2021 Subjective Patient is in a lot of pain out of proportion to her abscess. The patient reportedly went to the OR today and had the distal phalanx of her great toe removed. The operative report did not describe significant mount of purulent drainage at the time Review of Systems Review of Systems: Moderate distress and fatigue no headache, no visual changes no speech or swallowing issues no chest pain, pressure or palpitations no shortness of breath, cough or wheezes no abdominal pain, nausea or vomiting, diarrhea or constipation no dysuria, hematuria or frequency Great home pain radiating up the medial aspect of her right lower extremity to her knee. no back pain, CVA tenderness or radicular pain no bruising, bleeding or rashes no focal signs of weakness or numbness or altered sensation no complaints of anxiety or depression.. Physical Exam Physical Exam: The patient appeared well nourished and normally developed. Is in significant distress Vital signs as documented. Head exam is normocephalic atraumatic Neck is without JVD, thyromegaly, or carotid bruits. Lungs are clear to auscultation, no focal loss of breath sounds Cardiac exam, Rhythm is regular.. No murmurs, rubs or gallops. Abdominal exam reveals normal bowel sounds, soft non tender, no masses Extremities right leg is extremely tender to examination the toe is erythematous without significant fluctuance Neurologic exam is alert and oriented, no focal loss of strength is of some peripheral neuropathy Skin is with erythema surrounding her great toe Psychologically is without concerns for anxiety or depression.. Results & Data Results & Data ([facility]) Vital Signs (Past 12 Hours) Vital Signs Temp Pulse Resp BP BP Pulse Ox 07/23/21 07:45 98.2 F 84 16 132/70 94 07/23/21 00:05 98.4 F 78 18 120/63 91 PG Care Time/CCT Total # of Minutes Spent Total Time Spent with Patient: Total time spent is greater than 50% in coordination of care (as documented) at patient's floor/unit and/or counseling patient: Coding Level of Care Code 98878 Subseq Hosp Care Lvl 2 Diagnoses Toe ulcer, right L97.519
[2021-07-23] MEDS ORDERED: HYDROmorphone INJ 1 MG/ML SYRINGE IV STA (11:49)
[2021-07-23] MEDS ORDERED: ATROPINE SULFATE 0.1 MG/ML 10ML SYR IV PRN (12:58)
[2021-07-23] MEDS ORDERED: ONDANSETRON INJ 2 MG/ML 2 ML VIAL IV PRN (12:58)
[2021-07-23] MEDS ORDERED: KETAMINE 50 MG/5 ML SYRINGE ONE (13:05)
[2021-07-23] MEDS ORDERED: BUPIVACAINE 0.5 % 5 MG/1 ML MPF 30ML VIAL ONE (13:10)
[2021-07-23] MEDS ORDERED: LIDOCAINE 1% LOCAL 20 ML VIAL ONE (13:10)
[2021-07-23] MEDS: fentaNYL citrate 100 MCG/2 ML VIAL IV PRN ×4 (14:09→14:26)
--- NOTE | 2021-07-23 15:10 | Anesthesiology Progress Note ---
Date of Service July 23, 2021 Anesthesia Post Procedure Vital Signs Vital Signs: Temp Pulse Pulse Resp BP BP Pulse Ox 07/23/21 14:35 36.5 C 71 13 160/80 H 95 07/23/21 14:25 73 15 153/97 H 96 07/23/21 14:15 76 13 139/78 95 07/23/21 14:05 73 16 145/79 H 96 07/23/21 13:58 36.2 C L 74 15 120/68 97 07/23/21 07:45 36.8 C 84 16 132/70 94 07/23/21 00:05 36.9 C 78 18 120/63 91 07/22/21 16:00 36.6 C 88 16 169/81 H 96 Pain Intensity Right Great Toe: Pain Intensity: 4 Right Foot: Pain Intensity: 1 Transfer of Care Handoff Completed per policy Notes Mental Status: alert / awake / arousable Patient Amnestic to Procedure: Yes Nausea / Vomiting: adequately controlled Pain: adequately controlled Airway Patency, RR, SpO2: stable & adequate BP & HR: stable & adequate Hydration State: stable & adequate Anesthetic Complications: no major complications apparent
[2021-07-23] MEDS ORDERED: MAGNESIUM HYDROXIDE SUSP 30 ML UDC PO PRN (15:17)
[2021-07-23] MEDS ORDERED: bisacodyL 10 MG SUPP PR PRN (15:17)
[2021-07-23] MEDS ORDERED: NALOXONE HCL 0.4 MG/1 ML VIAL/CARP IV PRN (15:17)
[2021-07-23] MEDS ORDERED: SODIUM CHLORIDE 0.9% 1000ML 1,000 ML IV SCH (15:17)
--- NOTE | 2021-07-23 16:01 | Operative Report (OR) ---
PREOPERATIVE DIAGNOSIS: Right dysvascular great toe. POSTOPERATIVE DIAGNOSIS: Right dysvascular great toe. PROCEDURE: 1. Right great toe amputation at interphalangeal level. 2. Right flexor hallucis longus tenodesis. METAL REED TUNER: Mathew Crespo PA-C., was necessary for prepping, draping, retraction, exposure, and c losure. ANESTHESIA: Local with monitored anesthesia care. INDICATIONS: This is a female status post attempted debridement of osteomyelitis at the tip of the t oe. She presents with unrelenting pain at the tip of the toe and request amputation. The risks and benefits have been discussed including, but not limited to, risk of infection, nerve in jury, stiffness, loss of motion, failure to improve, etc. Reasonable outcomes and options of treatmen t were discussed. An explanation of appropriate alternatives to the procedure that may be advantageou s were discussed and their risks and benefits, as well as the risks and benefits of not proceeding wi th treatment. I offered to answer any additional inquiries concerning the treatment involved. All the patients questions were answered. The patient is agreeable, understanding of the treatment plan and alternatives, and wishes to proceed with the treatment plan. DESCRIPTION OF PROCEDURE: Made elliptical fishmouth incision over the IP joint of the toe. Dissecti on was carried down through the skin and subcutaneous tissues. I transected the extensor tendon and identified the interphalangeal joint of the toe and I excised the collateral ligament. I disarticula kerry the toe at the IP joint. I incised the FHL. I elected to perform FHL tenodesis to allow her for power in flexion. The FHL was tenodesed to the v olar plate with 4-0 Monocryl in a [id number] fashion. I performed traction neurectomies. The area was really clean in the region. I did irrigate with 1 l iter of normal saline. The tourniquet was let down. Hemostasis was obtained with bipolar electrocau juan and vascular supply did appear to be adequate in this region. Skin was loosely closed with 4-0 nylon. Dog ears were trimmed. The patient was placed in soft dressing and sent to the PACU in a sta ble condition. Job ID: [id number]
--- NOTE | 2021-07-23 16:06 | Operative Report (OR) ---
Addendum: Correct account V number should be [id number] and the correct medical record number should be [id number]. I think I dictated the incorrect medical record number, the rest of the report should be the same. Job ID: [id number]
[2021-07-23] MEDS ORDERED: Nursing to Pharmacy Communication SCH (16:15)
[2021-07-23] MEDS: cefTRIAXone SODIUM 2,000 MG in DEXTROSE 5% 50 ML IV SCH (18:11)
[2021-07-23] MEDS: oxyCODONE HCL IR 5 MG TAB (IMMEDIATE RELEASE) PO PRN (18:20)
[2021-07-23] MEDS: FLUTICASONE/VILANTEROL 100/25MCG 14 PUFFS/INHALER INH SCH (20:09)
[2021-07-23] MEDS: SENNA 8.6 MG TAB PO SCH (20:09)
[2021-07-23] MEDS: ZOLPIDEM TARTRATE 10 MG TAB PO SCH (20:11)
[2021-07-23] MEDS: NORTRIPTYLINE HCL 25 MG CAP PO SCH (20:21)
[2021-07-23] MEDS: ATORVASTATIN 40 MG TAB PO SCH (20:21)
[2021-07-23] MEDS: rOPINIRole HCL 2 MG TABLET PO SCH (20:22)
[2021-07-23] MEDS ORDERED: SENNA 8.6 MG TAB PO SCH (21:00)
[2021-07-23] MEDS ORDERED: DOCUSATE SODIUM 100 MG CAP PO SCH (21:00)
[2021-07-24] MEDS: HYDROmorphone INJ 0.5 MG/0.5 ML SYR IV PRN ×3 (03:10→11:00)
[2021-07-24 06:41] LABS: Hematocrit (blood only) 39.2 % (37-47); Hemoglobin 12.7 g/dL (12.0-16.0); Mean Corpuscular Hemoglobin 27.4 pg (25-34); Mean Corpuscular Hgb Conc 32.4 g/dL (32-36); Mean Corpuscular Volume 84.5 fL (80-100); Mean Platelet Volume 10.3 fL (7.4-10.4); Platelet Count 325 K/uL (130-400); RDW Standard Deviation 43.1 fL (36.4-46.3); Red Blood Count 4.64 M/uL (4.2-5.4); White Blood Count 12.32 K/uL (4.8-10.8)
[2021-07-24] MEDS: oxyCODONE HCL IR 5 MG TAB (IMMEDIATE RELEASE) PO PRN (06:42)
[2021-07-24 07:06] LABS: BUN Creatinine Ratio 15.5 (10-20); Calcium 9.1 mg/dl (8.5-10.1); Creatinine Clr Calc Pharmacy 118.4 ml/min; Est GFR (African American) 127.1 ml/min; Est GFR (Non-African American) 109.6 ml/min; Potassium 3.9 mmol/L (3.5-5.1)
[2021-07-24] MEDS: DOCUSATE SODIUM 100 MG CAP PO SCH (07:40)
--- NOTE | 2021-07-24 07:45 | Hospitalist Progress Note ---
Date of Service July 24, 2021 Assessment & Plan (1) Toe ulcer, right: Plan: Patient is a 56 year old female with PMHx DM2, HLD, Peripheral Neuropathy, PAD that presents with chief complaint of worsening pain of her R foot and at the recommendation of her Predator Control Trapper Dr. Lin to come to the ED for treatment of suspected infection of her R great toe ulceration. -MRI foot 07/15/21 with minimal marrow edema vs failure of fat suppression involving the tuft of the first distal phalanx, likely osteitis -- However with clinical findings suggestive of osteomyelitis of the distal phalanx of the R great toe - S/P I&D and exostectomy on 07/16, returned to the OR 07/23 with distal amputation of the right great toe no description as to significant purulence makes concerned that this is going to remedy her significant pain issue. -H/O of MRSA infection -Continue Daptomycin; Rocephin --He was cultures have been negative await further intraoperative cultures performed 1210 - Vascular consulted - do not feel related to ischemia or emboli; arterial perfusion adequate for wound healing and surgical wound healing; no need for additional invasive vascular testing/revascularization at this time - Wound care following - cleanse with saline; cover with Xeroform, 4x4, and Kerlix - change every day or more to prevent dressing sticking to wound bed - ID consultation - Abx as above - looking at 4-6 weeks unless amputation or good bone infection margins obtained; could possibly consider soft tissue treatment with orals if no osteo remaining -- Rx sent to case management for infusion company however may be worth message to ID again if cultures after amputation change the bacterial milieu 2) LUQ pain - Reports resolution - no acute abdominal findings -- Suspect a component of constipation contributing -resolved with improved pain 3) Candiduria -urinary urgency past 3 months -urine culture grew diamante glabrata -Diflucan 150mg PO x1 completed 4) Chronic cough -mild cough; remains on RA - Continue Fluticasone/Vilanterol 3) DM2 - A1c - 11.1 -Cont. with ssi (given low PO intake, basal insulin has been stopped). - Appreciate glycemic consult recommendations -elementary educator consult appreciated -- Recommend Metformin 500 mg BID as outpatient (was previously on that but stopped as it was "drying" her out); will better streamline closer to D/C -set up with supervisor fitting outpatient for diabetes management -monitor BSG 4) PAD -Dr. Lin ordered a brachial ankle index which revealed a right ratio of 0.69 indicative of peripheral artery disease -Dr Lin vascular's recommendations, No need for additional invasive vascular testing/revascularization.. 5) HLD -Cont. home Lipitor 6) HTN -Cont. home Zestril -Cont. home Metroprolol 7) Facial Rash - Had a R sided pruritic facial rash that responded to benadryl - resolved minus some mild dry skin on R cheek -- No eye involvement, no vision changes, no respiratory compromise -- Uncertain of etiology Admission and Anticipated Discharge Date Admission Date: July 14, 2021 Results & Data Results & Data ([facility]) Vital Signs (Past 12 Hours) Vital Signs Temp Pulse Resp BP Pulse Ox 07/24/21 07:35 98.4 F 115 H 20 170/94 H 96 07/24/21 04:20 98.1 F 97 H 15 137/74 94 07/23/21 23:46 97.7 F 84 15 172/82 H 92 PG Care Time/CCT Total # of Minutes Spent Total Time Spent with Patient: Total time spent is greater than 50% in coordination of care (as documented) at patient's floor/unit and/or counseling patient: Coding Diagnoses Toe ulcer, right L97.519
[2021-07-24] MEDS: CYCLOBENZAPRINE HCL 10 MG TAB PO SCH (07:58)
[2021-07-24] MEDS: lisinopril 20 MG TAB PO SCH (07:58)
[2021-07-24] MEDS: LORazepam 1 MG TAB PO SCH (07:58)
[2021-07-24] MEDS: ASPIRIN 81 MG ECTAB PO SCH (07:58)
[2021-07-24] MEDS: MULTIVITAMIN TAB PO SCH (07:58)
[2021-07-24] MEDS: ACETAMINOPHEN 500 MG TAB PO SCH (07:58)
[2021-07-24] MEDS: METOPROLOL SUCC 50MG EXT REL TAB PO SCH (07:58)
[2021-07-24] MEDS ORDERED: MULTIVITAMIN TAB PO SCH (09:00)
[2021-07-24] MEDS: INSULIN GLARGINE SOLOSTAR 100 UNITS/ML 3 ML PEN SC SCH (09:10)
[2021-07-24] MEDS: INSULIN ASPART 100 UNITS/ML 3 ML PEN SC SCH (09:11)
--- NOTE | 2021-07-24 10:02 | Progress Notes ---
SUBJECTIVE: The patient is seen in followup today, postop day #1. She states her pain is much impro be after a toe amputation. The pain she had yesterday is improving. She has had more mild postsurg ical pain. OBJECTIVE: Right lower extremity exam, her calves are soft. She is in a well-fitted soft bandage. No active bleeding. ASSESSMENT: Postoperative day #1, amputation of right great toe distal phalanx. PLAN: Surgical findings showed no evidence of osteomyelitis or infection at the region of the IP heidi nt of the toe. I feel infection is surgically cleared with wide margins currently. I feel most of her pain is likely coming from dysvascular nature of the toe rather than actual infect ion, osteomyelitis. From my standpoint, it would be reasonable to consider oral antibiotics at this point in time given osteomyelitis is cleared. She does not require further treatment from Orthopedics at this point in time. She is to follow up in the office with Dr. Montaño in approximately 2-3 weeks for suture removal. Job ID: [id number]
--- NOTE | 2021-07-24 10:35 | Pharmacy Report ---
Pharmacy Glycemic Short Note 2 - Date of Service July 24, 2021 - Glycemic Short BSG Results (Last 24 hours): 07/23/21 07/23/21 07/23/21 12:02 14:02 17:11 Glucose POC Glucose 102 H 77 97 07/23/21 07/24/21 07/24/21 20:46 05:17 08:03 Glucose 132 H POC Glucose 152 H 147 H OUTPATIENT ANTIDIABETIC REGIMEN: * Lantus 40 units HS * Humalog 10 units TIDM * HbA1C = 11.1% 07/15/21 ASSESSMENT: 07/24: * Mariana received a total of 22 units of insulin yesterday (20 units Lantus + 2 units bolus) * BSGs were well controlled: 559-502-55-152 mg/dL * Fasting BSG up to 147 mg/dL this AM * Will receive increased Lantus dose per scale * No change to Novolog 07/22: * Patient continues to have pain with toe, possible amputation tomorrow, remains on IV Dapto + ceftriaxone * Patient's BSGs well controlled on 20 units basal, 2 units bolus insulin, low carb intake, CR loosened yesterday to prevent hypoglycemia * No further changes at this time PLAN FOR INPATIENT GLYCEMIC CONTROL: * Basal insulin * Lantus 15-25 units SC daily * Bolus insulin * NovoLog per scale ACHS or Q6hrs while NPO * Goal Range: Low 110 mg/dL - High 140 mg/dL * Correction Factor: 30 mg/dL/unit * Nutritional / Prandial insulin per carb ratio of 1 unit per 20 grams CHO consumed PLAN FOR DISCHARGE: * Patient is set up with endocrinology for close follow-up. * Could discharge on Lantus 20 units daily with initiation of bolus insulin per endocrinology. * Recommend follow-up with them.
--- NOTE | 2021-07-24 15:48 | Discharge Summary ---
Date of Service July 24, 2021 Admission HPI Per Admitting Provider Patient is a 56 year old female with PMHx DM2, HLD, Peripheral Neuropathy, PAD that presents with chief complaint of worsening pain of her R foot and at the recommendation of her Lockstitch Coat Joiner Dr. Lin to come to the ED for treatment of suspected infection of her R great toe ulceration. Patient notes that for the past 1 week she has noticed worsening pain and pressure of her R foot. She notes previous amputation of the 2nd digit after ulceration. She notes currently that her toe is terribly painful and that the pain radiates upwards towards her calf as well. She notes a history of MRSA and is concerned about the infection being associated with that. She denies any Fever, headache, NVD, abdominal pain, SOB, chest pain. She does note having chills earlier. In the ED, CT atrophy of the ab/pelv and b/l LE noted a small 6mm rim-enhancing subcutaneous fluid collection along the plantar medial aspect of the R first metatarsophalangeal joint and adjacent infiltration, consistent with a small abscess. Med Hx:DM2, HLD, Peripheral Neuropathy, PAD Surg Hx: R foot 2nd digit amputation, Cardiac cath 2019 Soc Hx: Denies alcohol use. Notes medical marijuana use. Notes cigarette cessation 8 months ago, had been 1PPD x20 years Principal Diagnosis diabetic foot infection with concern for gangrene to distal right great toe, s/p amputation and removal of area of concern Discharge Exam The patient appeared well Vital signs as documented. Lungs are clear to auscultation and appear unlabored Cardiac exam, Rhythm is regular.. No murmurs, rubs or gallops. Abdominal exam reveals normal bowel sounds, soft non tender, no masses Extremities are nonedematous and both pedal pulses are normal. Neurologic exam is alert and oriented, no focal loss of strength or sensation Skin is with energies in place of the great toe where there is some bloodstained to the bandages however surgery instructed not to remove the deep bandages. I rewrapped the patient's exterior Kerlex Psychologically is without concerns for anxiety or depression. Discharge Data Allergies Allergy/AdvReac Type Severity Reaction Status Date / Time morphine Allergy Severe blisters Verified 07/14/21 20:58 in mouth Sulfa (Sulfonamide Allergy Severe rash/swelli Verified 07/14/21 20:58 Antibiotics) ng vancomycin Allergy Intermediate YULIYA Verified 07/14/21 20:58 SYNDROME Consultations 07/14/21 20:31 ED Decision to Admit Stat 07/14/21 23:02 Consult Orthopedic Surgery Routine 07/18/21 14:36 Consult Infectious Diseases Routine Procedures Performed Operation Date: 07/16/21 11:00 Actual Procedures p Incision and Drainage Extremity Right Foot Abcess, Resection Nail Plate Great Toe(Right) - Akhil Montaño DO Operation Date: 07/23/21 07:30 Actual Procedures p Amputation Right Great Toe, Tenodesis of Flexor Hallucis Longus(Left) - Pepe Rushing MD Ordered Studies 07/14/21 18:09 CT ang AA runof w inc wo ifdon Stat 07/14/21 20:55 US arterial duplex LE BI Stat 07/15/21 09:31 US ankle/brachial index ltd Routine 07/15/21 13:19 MR foot RT wo/w con Routine 07/24/21 08:56 US guide vascular access Routine Hospital Course (1) Toe ulcer, right: Patient is a 56 year old female with PMHx DM2, HLD, Peripheral Neuropathy, PAD that presents with chief complaint of worsening pain of her R foot and at the recommendation of her Lockstitch Coat Joiner Dr. Lin to come to the ED for treatment of suspected infection of her R great toe ulceration. -MRI foot 07/15/21 with minimal marrow edema vs failure of fat suppression involving the tuft of the first distal phalanx, likely osteitis -- However with clinical findings suggestive of osteomyelitis of the distal phalanx of the R great toe - S/P I&D and exostectomy on 07/16, returned to the OR 07/23 with distal amputation of the right great toe no description as to significant purulence makes concerned that this is going to remedy her significant pain issue. -H/O of MRSA infection --He was cultures have been negative await further intraoperative cultures performed 1210 - Vascular consulted - do not feel related to ischemia or emboli; arterial perfusion adequate for wound healing and surgical wound healing; no need for additional invasive vascular testing/revascularization at this time - Wound care following - cleanse with saline; cover with Xeroform, 4x4, and Kerlix - change every day or more to prevent dressing sticking to wound bed - After discussion with Dr Linkoski, he feels the intra operative findings are consistent with removal of the affected area, and does not think the pt will need iv antibiotics so he recommended that the pt be discharged on po, additionally the pt was not supportive of another attempt at us guided halfway iv access, will have short follow up and also continue to consider pcp and or ID eval as outpt 2) LUQ pain - Reports resolution - no acute abdominal findings -- Suspect a component of constipation contributing -resolved with improved pain 3) Candiduria -urinary urgency past 3 months -urine culture grew diamante glabrata -Diflucan 150mg PO x1 completed 4) Chronic cough -mild cough; remains on RA - Continue Fluticasone/Vilanterol 3) DM2 - A1c - 11.1 -Cont. with ssi (given low PO intake, basal insulin has been stopped). - Appreciate glycemic consult recommendations -health promotion educator consult appreciated -set up with resident physician outpatient for diabetes management, pt wants to continue basal bolus and discuss with resident physician -monitor BSG 4) PAD -Dr. Lin ordered a brachial ankle index which revealed a right ratio of 0.69 indicative of peripheral artery disease -Dr Lin vascular's recommendations, No need for additional invasive vascular testing/revascularization.. 5) HLD -Cont. home Lipitor 6) HTN -Cont. home Zestril -Cont. home Metroprolol 7) Facial Rash -resolved Total Time Total Time Spent Total Time Spent (In Minutes): It required greater than 30 minutes to prepare this patient for discharge Discharge Plan Discharge Items Patient Disposition: Home - Home Health Services Reason For Visit: R FOOT ABSCESS Discharge Diagnosis: diabetic foot infection, s/p surgical intervention and parital amputation of R great toe Activity: Per Instructions section Activity Comment: only heel weight bearing right foot Weightbearing: Right weightbearing Weightbearing Comment: Heel weightbearing only at this time. Non-emergency contact: Surgeon Call non-emergency contact if: your pain is not controlled, your temperature is above 101.5, your wound has increased redness and your wound has increased drainage Follow-up/Referrals: Akhil Montaño DO [Surgeon] - (follow up 10-14 days from the day of surgery for wound check. ) Vince Vernon DO [Primary Care Provider] - Mary Teresa DO [Physician] - Mich Montano PA-C [Physician Multimedia Designer] - 09/06/21 10:00 am (Please arrive 15 min. prior to appointment. Thank you!) Diet: Carb Consistent or DM2 Addtl Attending Provider Instructions: please see outpt primary care and have arrangements to see infectious disease Dr Pichardo, we cannot make appointments on the weekend so your primary care may be able to help on sunday Addtl Topographical Drafter Provider Instructions: ACTIVITY RECOMMENDATIONS: Limitations: Heel weight bearing only if able to tolerate. SPECIAL CARE INSTRUCTIONS: * Some drainage onto the dressing is normal and is no cause for alarm. * Some swelling is natural especially after walking. * When resting, keep your foot elevated above the level of your heart. * Call [facility] if you notice: -Increased drainage -Fever over 101 degrees F -Severe constant pain BANDAGE: * Change dressing daily. Use of multiple layers of nonstick gauze, 4x4's, and kerlix wrap * Keep bandage/cast dry at all times. FOLLOW UP VISIT WITH DR. MONTAÑO If appointment is not already scheduled: Please call [facility] after you get home today to schedule a follow-up appointment for [address] Montaño at . Pending Studies at Discharge: Yes (cultures) Stand-Alone Forms: My [employer], Smoking Cessation Medications and DC Order Prescriptions: New oxycodone 5 mg Tablet 5 - 10 mg PO Q4H PRN (Reason: pain) Qty: 30 RF: 0 amoxicillin-pot clavulanate [Augmentin] 875-125 mg tablet 1 tab PO BID Qty: 20 RF: 0 Continued atorvastatin [Lipitor] 40 mg tablet 40 mg PO HS RF: 0 lisinopril [Zestril] 10 mg tablet 10 mg PO QAM RF: 0 lorazepam [Ativan] 1 mg Tablet 1 mg PO TID Qty: 21 RF: 0 albuterol sulfate [Proventil HFA] 90 mcg/actuation HFA aerosol inhaler 1 puff inhalation QID PRN (Reason: Shortness Of Breath) RF: 0 insulin lispro [Humalog KwikPen Insulin] 100 unit/mL insulin pen 10 unit SUBCUT TIDM RF: 0 metoprolol succinate [Toprol XL] 50 mg tablet extended release 24 hr 50 mg PO QAM RF: 0 Basaglar KwikPen U-100 Insulin 100 unit/mL (3 mL) insulin pen 40 unit SUBCUT HS RF: 0 cyclobenzaprine 10 mg Tablet 10 mg PO TID RF: 0 aspirin [Aspirin Low Dose] 81 mg Tablet,Delayed Release (Dr/Ec) 81 mg PO QAM RF: 0 ropinirole 2 mg Tablet 4 mg PO HS RF: 0 zolpidem [Ambien] 10 mg Tablet 10 mg PO HS RF: 0 nortriptyline [Pamelor] 50 mg Capsule 100 mg PO HS RF: 0 No Action (DME) lancets [OneTouch UltraSoft Lancets] Misc See Rx Instructions .ROUTE .MEDSUPPLY Qty: 100 RF: 0 Discharge Orders: Discharge Order (Routine); Ordered 07/24/21 Ordered By: Ashok Nava/Other Patient Handouts: DVT Post Op Prevention Admission Data Admit Date/Time: 07/14/21 20:55 Attending Provider: Ashok Clemons Admit Provider: Ashok Lopez Primary Care Provider: Vince eVrnon Other Providers: [facility] ; Snehal Arciniega ; Akhil Montaño ; Sylvain Melendrez ; Esthela Curtis ; Harish Arciniega I. ; Cristhian Oconnor II ; Minda Vargas ; Dami Willard ; Dvaid Banerjee Other Interventions: Discharge Summary Assessment (RN) Last Done: 07/24/21 10:51 Coding Level of Care Code D/C DAY MANAGEMENT >30 MINS Diagnoses Toe ulcer, right L97.519
[2021-07-24] MEDS ORDERED: ENOXAPARIN INJ 40 MG/0.4 ML SYR SQ SCH (21:00)
== END 2021-07-24 11:49 | disposition home health service (06) | DRG 571 ==
LOC: ED 11:54 → 3N 20:55 → SUATTDRO 20:55 → 3N 21:57
DX: E78.5 Hyperlipidemia, unspecified; Z87.891 Personal history of nicotine dependence; Z79.4 Long term (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; B37.9 Candidiasis, unspecified; Z79.82 Long term (current) use of aspirin; L02.611 Cutaneous abscess of right foot; L97.519 Non-pressure chronic ulcer of other part of right foot with unspecified severity; I73.9 Peripheral vascular disease, unspecified; M86.9 Osteomyelitis, unspecified; R05.9 Cough, unspecified; E11.51 Type 2 diabetes mellitus with diabetic peripheral angiopathy without gangrene; I10 Essential (primary) hypertension; R21 Rash and other nonspecific skin eruption; Z88.2 Allergy status to sulfonamides; Z88.5 Allergy status to narcotic agent

== ENCOUNTER 2021-08-09 11:06 | Inpatient (IN) ==
--- NOTE | 2021-08-09 12:11 | XRay Report ---
TWO VIEW CHEST CLINICAL HISTORY: Sepsis. FINDINGS: PA and lateral chest radiographs are compared to study dated 03/08/2021. Correlation is made with chest CT dated 02/08/2021. The cardiomediastinal silhouette is unremarkable. The lungs and pleu ral spaces are clear. There is no pneumothorax. The bony thorax appears intact. IMPRESSION: No active disease in the chest. ACT 112: Negative or not required by law. Electronically signed by: Finn Bradshaw M.D. 08/09/2021 12:09 PM
[2021-08-09] MEDS ORDERED: ONDANSETRON 4 MG OD TAB PO STA (12:32)
[2021-08-09] MEDS ORDERED: oxyCODONE HCL IR 5 MG TAB (IMMEDIATE RELEASE) PO STA (12:32)
[2021-08-09] MEDS ORDERED: CEFEPIME 20 ML IV ONE ×2 (12:45→15:45)
[2021-08-09] MEDS ORDERED: PATIENT'S HEIGHT AND/OR WEIGHT NEEDED SCH (12:45)
[2021-08-09 12:47] LABS: Basophils # (auto) 0.04 K/uL (0-0.2); Basophils % (auto) 0.3 %; Eosinophils # (auto) 0.41 K/uL (0-0.5); Eosinophils % (auto) 3.2 %; Hematocrit (blood only) 39.2 % (37-47); Immature Granulocytes # (auto) 0.03 K/uL (0.00-0.02); Immature Granulocytes % (auto) 0.2 %; Lymphocytes # (auto) 2.13 K/uL (1.2-3.4); Lymphocytes % (auto) 16.6 %; Mean Corpuscular Hemoglobin 27.2 pg (25-34); Mean Corpuscular Hgb Conc 33.2 g/dL (32-36); Mean Platelet Volume 9.6 fL (7.4-10.4); Monocytes # (auto) 1.36 K/uL (0.11-0.59); Monocytes % (auto) 10.6 %; Neutrophils # (auto) 8.84 K/uL (1.4-6.5); Neutrophils % (auto) 69.1 %; Platelet Count 428 K/uL (130-400); RDW Coefficient of Variation 13.8 % (11.5-14.5); RDW Standard Deviation 41.5 fL (36.4-46.3); Red Blood Count 4.78 M/uL (4.2-5.4); White Blood Count 12.81 K/uL (4.8-10.8)
[2021-08-09 12:59] LABS: Partial Thromboplastin Ratio 0.9; Partial Thromboplastin Time 23.1 Seconds (21.0-31.0)
[2021-08-09 13:17] LABS: Alanine Aminotransferase 19 (12-78); Albumin Globulin Ratio 0.8 (0.9-2); Albumin Level 3.8 gm/dl (3.4-5.0); Alkaline Phosphatase 126 U/L (45-117); Aspartate Aminotransferase 6 U/L (15-37); Bilirubin,Total 0.2 mg/dl (0.2-1); Blood Urea Nitrogen 6 mg/dl (7-18); Calcium 9.5 mg/dl (8.5-10.1); Carbon Dioxide 28 mmol/L (21-32); Chloride 95 mmol/L (98-107); Est GFR (African American) 114.2 ml/min; Est GFR (Non-African American) 98.6 ml/min; Globulin 4.9 gm/dl (2.5-4.0); Glucose 300 mg/dl (70-99); Magnesium 2.3 mg/dl (1.8-2.4); Potassium 3.9 mmol/L (3.5-5.1); Sodium 130 mmol/L (136-145); Total Protein 8.7 gm/dl (6.4-8.2); Troponin I < 0.015 ng/ml (0-0.045)
--- NOTE | 2021-08-09 14:08 | Emergency Department Note ---
Impression & Plan Postoperative wound infection, Leukocytosis ED Provider Note INFORMANT: Patient ED PROVIDER(S): Mathew Decker MD CHIEF COMPLAINT: Right foot infection PLAN: Disposition: Admitted Condition: Good Outpatient prescription management: none Referral: None MEDICAL DECISION MAKING: Patient presented back to the emergency department because of worsening infection in her right great toe. She was admitted previously and treated by Dr. Montaño. He saw her in the office today and referred her back. The patient was in quite a bit of pain. She was seen in the triage protocol area to expe dite her work-up given the significant backlog due to the COVID-19 pandemic. She had a leukocytosis and was mildly tachycardic. Cultures were obtained both blood and of the wound. She was given 2 oxycodone and Zofran orally. Discussed with the pharmacist and IV cefepime and daptomycin were ordered. The patient was reassessed and was doing somewhat better regarding her symptoms. She is still waiting for a formal bed. I did consult with [facility] for admission. Triage Nursing notes reviewed and agree them. Vital Signs: reviewed and remarkable for mild tachycardia Differential diagnosis: Cellulitis, abscess, MRSA infection, DVT, necrotizing fasciitis, dermatitis, drug eruption, allergic reaction, as well as other pathologies. Diagnostics interpreted by me: ECG: none Cardiac Monitoring: none Imaging studies: Chest x-ray. Findings: A chest x-ray was performed and revealed no pneumothorax, effusion, infiltrate, pulmonary edema, free air under the diaphragm, or wide mediastinum. Impression: No acute disease. HPI: The patient is a 56 year old female who presents to the Emergency Room with complaints of right foot infection. This started several weeks ago and is worsening despite surgery and treatment with antibiotics earlier this month The patient also notes the following associated symptoms, pain radiating up to the right leg. The patient has been using oxycodone at home for relieving factors. Current pain is rated as 8/10. Patient was seen by Dr. Montaño in the clinic and directed to the ER for admission and IV antibiotics. Pt denies LOC, headache, fevers, chills, diaphoresis, visual changes, neck pain, chest pain, breathing difficulties, nausea, vomiting, abdominal pain, back pain, melena, hematochezia, urinary symptoms, numbness, weakness, lymphadenopathy, rash, or other complaints. ROS: See above HPI for pertinent positives & negatives. A total of 10 systems reviewed and were otherwise negative. PAST MEDICAL HISTORY:See Below , right foot abscess, cellulitis, diabetes PAST SURGICAL HISTORY:See Below, FAMILY HISTORY:See Below SOCIAL HISTORY:See Below, non-smoker HOME MEDICATIONS:See Below ALLERGIES:See Below VITALS:See Below PHYSICAL EXAMINATION: GENERAL: Awake, alert, uncomfortable-appearing, in no distress HENT: Normocephalic, atraumatic. Oropharynx unremarkable. EYES: Normal conjunctiva. Sclera non-icteric. NECK: Inspection normal. Non-tender. Supple. No nuchal rigidity. FROM. No mas ses. RESPIRATORY: Clear to auscultation. No wheezes. No rales. Normal respiratory effort. CARDIAC: Normal rate. Normal rhythm. No murmurs. No rubs. Extremities warm and well perfused. Pulses equal. No JVD. GI: Soft, non-distended. No tenderness to palpation. No rebound or guarding. No masses. RECTAL: Deferred. MUSCULOSKELETAL: Atraumatic. The back is symmetrical on inspection without obvious abnormality. There is no CVA tenderness to palpation. No joint edema. LOWER EXTREMITIES: Calves are equal size bilaterally and non-tender. No edema. No discoloration on the left. Examination of the right foot reveals a healing surgical wound with some purulent drainage noted from the lateral aspect of the incision. This was cultured. Some mild surrounding redness. Significant tenderness of the stump and distal foot. NEURO: Normal sensorium. No sensory or motor deficits noted. SKIN: No rash or jaundice noted. Mathew Decker MD Past Med/Surg History Medical History Chronic back pain Depression DM2 (diabetes mellitus, type 2) Gastritis GIB (gastrointestinal bleeding) Hyperlipidemia Insulin dependent diabetes mellitus Nonobstructive atherosclerosis of coronary artery Peripheral neuropathy Seizures Surgical History History of cardiac cath done at [facility]; 09/22/19; LM - mild luminal irregularities. LAD - mid 20-30%, distal with myocardial bridge & 30% stenosis. L Cx - mild luminal irregularities. RCA - proximal <30% stenosis; mid/distal vessel mild plaques. PDA - mild luminal irregularities. History of esophagogastroduodenoscopy (EGD) Family History Mother , age 63 Myocardial infarction Father , age 68 or 69 Myocardial infarction Brother S/P CABG (coronary artery bypass graft) Sister Myocardial infarction x 3; she is 57yo Social History Smoking Status: Former smoker Tobacco Type: Cigarettes packs per day: 1; Years Smoked: 20; Cigarettes Per Day: 1 PPD for 20 years; Second Hand Exposure: No; Hx Alcohol Use: No Hx Substance Use: Yes Last Used Substance: Unknown Substance Use Type Other:: Pt. 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 How many Children do You have: 3 other: raising a grandchild as well; lives in [place] Feels Safe at Home: Yes Assistive Devices: None Allergies Allergies Allergy/AdvReac Type Severity Reaction Status Date / Time morphine Allergy Severe blisters Verified 07/14/21 20:58 in mouth Sulfa (Sulfonamide Allergy Severe rash/swelli Verified 07/14/21 20:58 Antibiotics) ng vancomycin Allergy Intermediate YULIYA Verified 07/14/21 20:58 SYNDROME Home Meds Home Medications Medication Instructions Recorded Confirmed aspirin 81 mg tablet,delayed 81 mg PO QAM 10/19/20 07/14/21 release (Aspirin Low Dose) cyclobenzaprine 10 mg tablet 10 mg PO TID 10/19/20 07/14/21 nortriptyline 50 mg capsule 100 mg PO HS 10/19/20 07/14/21 (Pamelor) ropinirole 2 mg tablet 4 mg PO HS 10/19/20 07/14/21 zolpidem 10 mg tablet (Ambien) 10 mg PO HS 10/19/20 07/14/21 lancets (OneTouch UltraSoft #100 ea 11/12/20 07/14/21 Lancets) atorvastatin 40 mg tablet (Lipitor) 40 mg PO HS 01/24/21 07/14/21 lisinopril 10 mg tablet (Zestril) 10 mg PO QAM 01/24/21 07/14/21 albuterol sulfate 90 mcg/actuation 1 puff INHALATION QID PRN 03/05/21 07/14/21 aerosol inhaler (Proventil HFA) insulin glargine 100 unit/mL (3 40 unit SUBCUT HS 03/05/21 07/14/21 mL) subcutaneous pen (Basaglar KwikPen U-100 Insulin) insulin lispro 100 unit/mL 10 unit SUBCUT TIDM 03/05/21 07/14/21 subcutaneous pen (Humalog KwikPen (U-100) Insulin) metoprolol succinate 50 mg 50 mg PO QAM 03/05/21 07/14/21 tablet,extended release 24 hr (Toprol XL) Previous Rx's Medication Instructions Recorded lorazepam 1 mg tablet (Ativan) 1 mg PO TID #21 tab 01/28/21 amoxicillin 875 mg-potassium 1 tab PO BID #20 tab 07/24/21 clavulanate 125 mg tablet (Augmentin) oxycodone 5 mg tablet 5 - 10 mg PO Q4H PRN #30 tab 07/24/21 Results & Data (ED) Vital Signs Vital Signs - 24 hr 08/09/21 11:30 08/09/21 12:18 Temperature 36.7 C Temperature Source Temporal Artery Scan Pulse Rate 103 H Respiratory Rate 20 Respiratory Effort / Characteristics Non-Labored Respiratory Depth Normal Blood Pressure 147/72 H Blood Pressure Mean 97 Blood Pressure Position Sitting Pulse Oximetry 98 Oxygen Delivery Method Room Air Room Air Sepsis Recent Fever Within 48 Hours Yes Sepsis New/Unexplained Change in Mental Status Yes Sepsis Action Taken by Nursing Physician Notified Laboratory Data Result diagrams: 08/09/21 12:20 08/09/21 12:20 Lab Results 08/09/21 08/09/21 08/09/21 Range/Units 12:20 12:20 12:20 WBC 12.81 H (4.8-10.8) K/uL RBC 4.78 (4.2-5.4) M/uL Hgb 13.0 (12.0-16.0) g/dL Hct 39.2 (37-47) % MCV 82.0 (80-100) fL MCH 27.2 (25-34) pg MCHC 33.2 (32-36) g/dL RDW Std Deviation 41.5 (36.4-46.3) fL RDW Coeff of Maria Del Carmen 13.8 (11.5-14.5) % Plt Count 428 H (130-400) K/uL MPV 9.6 (7.4-10.4) fL Immature Gran % (Auto) 0.2 % Neut % (Auto) 69.1 % Lymph % (Auto) 16.6 % [place] % (Auto) 10.6 % Eos % (Auto) 3.2 % Baso % (Auto) 0.3 % Neut # (Auto) 8.84 H (1.4-6.5) K/uL Lymph # (Auto) 2.13 (1.2-3.4) K/uL [place] # (Auto) 1.36 H (0.11-0.59) K/uL Eos # (Auto) 0.41 (0-0.5) K/uL Baso # (Auto) 0.04 (0-0.2) K/uL Immature Gran # (Auto) 0.03 H (0.00-0.02) K/uL PT 10.0 (9.0-12.0) Seconds INR 1.0 (0.9-1.1) APTT 23.1 (21.0-31.0) Seconds PTT Ratio 0.9 Sodium 130 L (136-145) mmol/L Potassium 3.9 (3.5-5.1) mmol/L Chloride 95 L (98-107) mmol/L Carbon Dioxide 28 (21-32) mmol/L Anion Gap 7.0 (3-11) BUN 6 L (7-18) mg/dl Creatinine 0.65 (0.6-1.2) mg/dl Est Cr Clr Drug Dosing Not Reportable Est GFR ( Amer) 114.2 ml/min Est GFR (Non-Af Amer) 98.6 ml/min BUN/Creatinine Ratio 9.0 L (10-20) Glucose 300 H (70-99) mg/dl Calcium 9.5 (8.5-10.1) mg/dl Magnesium 2.3 (1.8-2.4) mg/dl Total Bilirubin 0.2 (0.2-1) mg/dl AST 6 L (15-37) U/L ALT 19 (12-78) Alkaline Phosphatase 126 H (45-117) U/L Troponin I < 0.015 (0-0.045) ng/ml Total Protein 8.7 H (6.4-8.2) gm/dl Albumin 3.8 (3.4-5.0) gm/dl Globulin 4.9 H (2.5-4.0) gm/dl Albumin/Globulin Ratio 0.8 L (0.9-2) Specimen Hemolysis Administered Medications Discontinued Medications Ondansetron HCl (Ondansetron 4 Mg Od Tab) 4 mg PO NOW STA Stop: 08/09/21 12:33 Last Admin: 08/09/21 12:38 Dose: 4 mg Documented by: [id number] Oxycodone HCl (Oxycodone Hcl Ir 5 Mg Tab (Immediate Release)) 10 mg PO NOW STA Stop: 08/09/21 12:33 Last Admin: 08/09/21 12:38 Dose: 10 mg Documented by: [id number] Imaging Data Radiologist's Impression: Chest X-Ray 08/09/21 11:35 TWO VIEW CHEST CLINICAL HISTORY: Sepsis. FINDINGS: PA and lateral chest radiographs are compared to study dated 03/08/2021. Correlation is made with chest CT dated 02/08/2021. The cardiomediastinal silhouette is unremarkable. The lungs and pleural spaces are clear. There is no pneumothorax. The bony thorax appears intact. IMPRESSION: No active disease in the chest. ACT 112: Negative or not required by law. Electronically signed by: Finn Bradshaw M.D. 08/09/2021 12:09 PM Discharge Plan Visit Data Chief Complaint: Infection Stated Complaint: BIG TOE ON RT FT INFECTED S/P PARTIAL AMPUTATION ED Provider: Mathew Decker Discharge Problem: Postoperative wound infection, Leukocytosis Forms Stand Alone Forms: My [facility]AMAP Prescriptions Prescriptions: No Action (DME) lancets [OneTouch UltraSoft Lancets] Misc See Rx Instructions .ROUTE .MEDSUPPLY Qty: 100 RF: 0 atorvastatin [Lipitor] 40 mg tablet 40 mg PO HS RF: 0 lisinopril [Zestril] 10 mg tablet 10 mg PO QAM RF: 0 lorazepam [Ativan] 1 mg Tablet 1 mg PO TID Qty: 21 RF: 0 albuterol sulfate [Proventil HFA] 90 mcg/actuation HFA aerosol inhaler 1 puff inhalation QID PRN (Reason: Shortness Of Breath) RF: 0 insulin lispro [Humalog KwikPen Insulin] 100 unit/mL insulin pen 10 unit SUBCUT TIDM RF: 0 metoprolol succinate [Toprol XL] 50 mg tablet extended release 24 hr 50 mg PO QAM RF: 0 Basaglar KwikPen U-100 Insulin 100 unit/mL (3 mL) insulin pen 40 unit SUBCUT HS RF: 0 oxycodone 5 mg Tablet 5 - 10 mg PO Q4H PRN (Reason: pain) Qty: 30 RF: 0 amoxicillin-pot clavulanate [Augmentin] 875-125 mg tablet 1 tab PO BID Qty: 20 RF: 0 cyclobenzaprine 10 mg Tablet 10 mg PO TID RF: 0 aspirin [Aspirin Low Dose] 81 mg Tablet,Delayed Release (Dr/Ec) 81 mg PO QAM RF: 0 ropinirole 2 mg Tablet 4 mg PO HS RF: 0 zolpidem [Ambien] 10 mg Tablet 10 mg PO HS RF: 0 nortriptyline [Pamelor] 50 mg Capsule 100 mg PO HS RF: 0 Referrals Referrals: Vince Vernon DO [Primary Care Provider] -
--- NOTE | 2021-08-09 14:25 | History & Physical Report ---
Date of Service August 09, 2021 Assessment & Plan (1) Postoperative wound infection: Plan: Right foot postop infection Recently discharged 07/24/2021 following admission for diabetic foot infection status post I&D and exostectomy on 07/16 and subsequent distal amputation of right great toe 07/23 History of MRSA Previously evaluated by vascular, presentation not related to ischemia/emboli and arterial perfusion adequate for wound healing Leukocytosis to 12.81 Hemoglobin normal Reactive thrombocytosis to 428 Troponin negative Alk phos elevated to 126 CXR: No active disease Wound cultures taken on arrival to ER, pending Blood cultures pending Case discussed with pharmacy/Ortho prior to admission Continue cefepime/daptomycin at this time Pain control with Tylenol, hydromorphone 0.5-1.0 mg scaled analgesia as needed for breakthrough, patient with blisters to morphine but has tolerated other narcotics including oxycodone since then Orthopedics consulted for debridement - EKG: Sinus tachycardia without territorial ST segment changes. No troponin elevation. No clinical symptoms of angina/ACS. Lisinopril held in anticipation of potential operative management (2) Diabetes mellitus type 2, uncontrolled: Plan: Type 2 diabetes mellitus Recent A1c poorly controlled\ - Goal bsg 100-140 Lantus/SSI. TDD ~70U, lantus 12u BID CF35 Ratio 11 Pharmacy consulted (3) PAD (peripheral artery disease): Plan: Peripheral artery disease Evaluated by Dr. Lin at previous admission, right NATHAN 0.69, no recommendation for invasive vascular testing/revascularization Lipitor as below (4) Hyperlipidemia: Plan: Hyperlipidemia Home Lipitor held due to interaction with daptomycin while on antibiotics as above (5) HBP (high blood pressure): Plan: Hypertension Hold lisinopril in anticipation of potential operative management Continue home metoprolol succinate 50 mg p.o. every morning (6) Hyponatremia: Plan: Hyponatremia 130 Creatinine normal Glucose 300 - Fluids as above - BMP daily Plan: DVT prophylaxis: Heparin 5000 twice daily Diet: N.p.o. at midnight Disposition: Medical/surgical CODE STATUS: Full code History of Present Illness Chief Complaint: R foot post op infection Primary Care Provider: Vince Vernon DO Mariana Inch is a 56-year-old female with a past medical history of poorly controlled type 2 diabetes mellitus, peripheral artery disease, hyperlipidemia, hypertension, diabetic foot infection status post amputation of previous hospitalization who presents from the orthopedics office with concern for a right great toe surgical site infection. Patient is seen briefly in bed holding due to lack of bed/ER availability in order to expedite evaluation. Patient continues to have 810 out of 10 pain in her right foot with mild improvement with oxycodone. Endorses purulent discharge. She is not experiencing chest pain, chest pressure, nausea, vomiting , diarrhea, fever, chills, difficulty breathing, orthopnea, dysuria. Was referred over from Dr. Montaño's office. Patient visited for reassessment in room B5. Further history patient reports she has had foot pain as noted, has also had a sending pain up her right foot into the calf/knee in the last 5 days and that the pain in her foot will sometimes send lightninglike jolts up to her knee. Endorses erythema and some swelling of the toe. Sensation intact in feet bilaterally, tender in the muscle bulk of the right calf. Medical History: Reviewed Medications: Reviewed. Last took medications last night Surgical History: Reviewed Allergies: Reviewed, allergic to sulfa. Hx MARTHA to vanco. Social History: Former smoker, no alcohol use, no recreational drug use Code Status: Full code Allergies Allergy/AdvReac Type Severity Reaction Status Date / Time morphine Allergy Severe blisters Verified 08/09/21 15:02 in mouth Sulfa (Sulfonamide Allergy Severe rash/swelli Verified 08/09/21 15:02 Antibiotics) ng vancomycin Allergy Intermediate YULIYA Verified 08/09/21 15:02 SYNDROME Home Medications Medication Instructions Recorded Confirmed Type aspirin 81 mg tablet,delayed 81 mg PO QAM 10/19/20 08/09/21 History release (Aspirin Low Dose) cyclobenzaprine 10 mg tablet 10 mg PO TID 10/19/20 08/09/21 History nortriptyline 50 mg capsule 100 mg PO HS 10/19/20 08/09/21 History (Pamelor) ropinirole 2 mg tablet 4 mg PO HS 10/19/20 08/09/21 History zolpidem 10 mg tablet (Ambien) 10 mg PO HS 10/19/20 08/09/21 History lancets (OneTouch UltraSoft #100 ea 11/12/20 07/14/21 History Lancets) atorvastatin 40 mg tablet (Lipitor) 40 mg PO HS 01/24/21 08/09/21 History lisinopril 10 mg tablet (Zestril) 10 mg PO QAM 01/24/21 08/09/21 History lorazepam 1 mg tablet (Ativan) 1 mg PO TID #21 tab 01/28/21 08/09/21 Rx albuterol sulfate 90 mcg/actuation 1 puff INHALATION QID PRN 03/05/21 08/09/21 History aerosol inhaler (Proventil HFA) insulin glargine 100 unit/mL (3 40 unit SUBCUT HS 03/05/21 08/09/21 History mL) subcutaneous pen (Basaglar KwikPen U-100 Insulin) insulin lispro 100 unit/mL 10 unit SUBCUT TIDM 03/05/21 08/09/21 History subcutaneous pen (Humalog KwikPen (U-100) Insulin) metoprolol succinate 50 mg 50 mg PO QAM 03/05/21 08/09/21 History tablet,extended release 24 hr (Toprol XL) amoxicillin 875 mg-potassium 1 tab PO BID #20 tab 07/24/21 08/09/21 Rx clavulanate 125 mg tablet (Augmentin) Past Med/Surg History Medical History Chronic back pain Depression DM2 (diabetes mellitus, type 2) Gastritis GIB (gastrointestinal bleeding) Hyperlipidemia Insulin dependent diabetes mellitus Nonobstructive atherosclerosis of coronary artery Peripheral neuropathy Seizures Surgical History History of cardiac cath done at [facility]; 09/22/19; LM - mild luminal irregularities. LAD - mid 20-30%, distal with myocardial bridge & 30% stenosis. L Cx - mild luminal irregularities. RCA - proximal <30% stenosis; mid/distal vessel mild plaques. PDA - mild luminal irregularities. History of esophagogastroduodenoscopy (EGD) Family History Mother , age 63 Myocardial infarction Father , age 68 or 69 Myocardial infarction Brother S/P CABG (coronary artery bypass graft) Sister Myocardial infarction x 3; she is 57yo Social History Smoking Status: Former smoker Tobacco Type: Cigarettes packs per day: 1; Years Smoked: 20; Cigarettes Per Day: 1 PPD for 20 years; Second Hand Exposure: No; Hx Alcohol Use: No Hx Substance Use: Yes Last Used Substance: Unknown Substance Use Type Other:: Pt. 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 NAD. Cooperative. Appears uncomfortable, but nontoxic HEENT: Atraumatic, normocephalic. Vision and hearing grossly intact. Pulm: CTAB A&P. -wheezes, -rales, -rhonchi. Symmetrical chest rise. No increase work of breathing. No respiratory distress. Cardiac: Regular, tachycardic, -mrg. Radial pulses intact and symmetrical. Abdominal: Nontender, nondistended, soft. BS present. Ext: Right foot s/p R hallux and second digit amputation with surgical wound with purulent drainage at lateral aspect, sutures in place. Surrounding erythema, prominent tenderness. Left foot intact. No pedal edema. Ankle dorsiflexion/plantar flexion and hand mica plate layer strength intact bilaterally and sensation is soft touch intact in hands and feet grossly. Severe pain up through right foot and calf on exam. Right foot DP pulse intact, toes with brisk capillary refill. Results & Data Results & Data ([facility]) Vital Signs (Past 12 Hours) Vital Signs Temp Pulse Resp BP Pulse Ox 08/09/21 11:30 36.7 C 103 H 20 147/72 H 98 PG Care Time/CCT Total # of Minutes Spent Total Time Spent with Patient: Total time spent is greater than 50% in coordination of care (as documented) at patient's floor/unit and/or counseling patient: Coding Level of Care Code 69821 Initial Inpt Care Lvl 2 Diagnoses Postoperative wound infection T81.49XA Diabetes mellitus type 2, uncontrolled E11.65 PAD (peripheral artery disease) I73.9 Hyperlipidemia E78.5 Hyperlipidemia type: unspecified HBP (high blood pressure) I10 Hypertension type: essential hypertension Hyponatremia E87.1 (1) Hyperlipidemia Hyperlipidemia type: unspecified Qualified Code(s): E78.5 - Hyperlipidemia, u nspecified (2) HBP (high blood pressure) Hypertension type: essential hypertension Qualified Code(s): I10 - Essential (primary) hypertension
[2021-08-09] MEDS ORDERED: DAPTOmycin 300 MG in SYRINGE 0 ML IV ONE (14:30)
[2021-08-09] MEDS ORDERED: SODIUM CHLORIDE 0.9% 1000ML 1,000 ML IV SCH (15:00)
[2021-08-09] MEDS ORDERED: HYDROmorphone INJ 1 MG/ML SYRINGE ONE ×2 (16:06→18:50)
--- NOTE | 2021-08-09 16:58 | XRay Report ---
RIGHT TIBIA AND FIBULA 2 VIEWS CLINICAL HISTORY: Right leg pain. Foot infection. FINDINGS: AP and lateral views of the right tibia and fibula are obtained. No prior studies are avail able for comparison at the time of dictation. The skeletal structures are osteopenic. No fracture is seen. No bony erosion or periostitis is identified. The knee and ankle joints are grossly maintained. There is a plantar calcaneal enthesophyte. The overlying soft tissues are normal as imaged. IMPRESSION: No acute bony abnormality. Electronically signed by: Finn Bradshaw M.D. 08/09/2021 4:57 PM
--- NOTE | 2021-08-09 17:05 | XRay Report ---
XR foot RT min 3V routine CLINICAL HISTORY: RLE post-op infection, worsening pain ascending sx COMPARISON: MRI of the right foot July 15, 2021. FINDINGS: Interval resection of the distal phalanx of the right first toe is noted. Previous right s econd digit amputation is present. There is no CT evidence for acute osteomyelitis within the right f oot. There is soft tissue swelling of the right first digit. There is equivocal soft tissue gas at th e amputation site as well as gas medial to the right first metatarsal. No acute fracture is identifie d. IMPRESSION: 1. No acute fracture. No CT evidence for acute osteomyelitis. Status post right first and second digi t amputations, as above. 2. Right first digit soft tissue swelling. Possible soft tissue gas within the right first digit, as above. This is probably postsurgical or artifactual however a gas-forming infectious process could ap pear similar. ACT 112: Negative or not required by law. Electronically signed by: Wilver Powell M.D. 08/09/2021 5:03 PM
--- NOTE | 2021-08-09 17:55 | Electrocardiogram Report ---
Test Reason : Blood Pressure : / mmHG Vent. Rate : 102 BPM Atrial Rate : 102 BPM P-R Int : 154 ms QRS Dur : 076 ms QT Int : 320 ms P-R-T Axes : 029 055 067 degrees QTc Int : 417 ms Sinus tachycardia Abnormal ECG When compared with ECG of 08-MAR-2021 08:52, T wave inversion now evident in Anterior leads Confirmed by Harvinder Guerra ([id number]) on 08/09/2021 5:54:56 PM Referred By: Confirmed By:Scot Guerra
--- NOTE | 2021-08-09 18:44 | Ultrasound Report ---
RIGHT LOWER EXTREMITY VENOUS DOPPLER CLINICAL HISTORY: R calf pain, hx immobilization COMPARISON STUDY: No previous studies for comparison. TECHNIQUE: Sonography of the deep venous system of the right lower extremity was performed. Compress ion and augmentation were evaluated. FINDINGS: The right common femoral, superficial femoral and popliteal veins were compressible. Augme ntation was normal. Flow was shown within the deep calf vessels. Note is made of an enlarged right in guinal lymph node that measures 3.1 x 1.1 cm. However, this node contains a fatty hilum. The cortex i s mildly thickened. IMPRESSION: 1. No evidence of deep venous thrombus within the right lower extremity. 2. Mildly enlarged right inguinal lymph node with thickened cortex. Although indeterminate, this node is likely reactive and probably benign. A follow-up right inguinal ultrasound in 3 months to ensure stability/resolution is recommended. ACT 112: Negative or not required by law. Electronically signed by: Wilver Powell M.D. 08/09/2021 6:43 PM
[2021-08-09] MEDS ORDERED: DEXTROSE 50% 50 ML SYRINGE IV PRN (18:45)
[2021-08-09] MEDS ORDERED: PHARMACY GLYCEMIC MGMT CONSULT PRN (18:45)
[2021-08-09] MEDS ORDERED: GLUCOSE 40% GEL 15 GM TUBE PO PRN (18:45)
[2021-08-09] MEDS ORDERED: INSULIN ASPART PER UNIT SC SCH (18:45)
[2021-08-09] MEDS ORDERED: GLUCAGON FOR INJ 1 MG VIAL SQ PRN (18:45)
[2021-08-09] MEDS ORDERED: ACETAMINOPHEN 325 MG TAB PO PRN (18:45)
[2021-08-09] MEDS ORDERED: CARBOHYDRATES FOR HYPOGLYCEMIA PO PRN (18:45)
[2021-08-09] MEDS ORDERED: GLUCOSE 10 TABS/TUBE PO PRN (18:45)
[2021-08-09] MEDS ORDERED: HYDROmorphone INJ 0.5 MG/0.5 ML SYR IV PRN (18:45)
[2021-08-09] MEDS ORDERED: GADOBUTROL 65ML VIAL IV ONE (20:14)
[2021-08-09] MEDS ORDERED: INSULIN GLARGINE SOLOSTAR 100 UNITS/ML 3 ML PEN SC ONE (21:00)
--- NOTE | 2021-08-09 21:19 | Magnetic Resonance Report ---
MR lower leg RT wo/w con CLINICAL HISTORY: Severe ascending right lower extremity pain, post-op infection COMPARISON STUDY: MRI of the right foot July 15, 2021. Radiographs of the right tibia and fibula and right foot performed earlier today. TECHNIQUE: Utilizing a 1.5 Sariah magnet and dedicated coil, multiplanar, multi echo imaging of the [facility] lower leg was performed pre and postcontrast administration. Intravenous injection of 6.5 cc of G adavist was uneventful. FINDINGS: There is no marrow edema within the right tibia or fibula. No fluid collection is identifie d within the right lower leg on this exam. Note is made of moderate edema within the right lower leg, predominantly extending along the right posterior tibial and peroneal vessels. There is mild associa ekrry abnormal enhancement. There is also associated edema within the adjacent musculature, predominant ly within the posterior compartment. The edema extends to the periosteum of the right fibula. Edema e xtends at least to the right popliteal vessels. Mild fluid extending along the fascia is present. No sites of marrow edema are identified. Talar dome is intact. Sensitivity for detection of soft tissue gas is diminished on MRI. However, there are possible small hypointense foci extending along the righ t calf vessels. Soft tissue gas cannot be excluded. IMPRESSION: 1. Moderate edema within the right lower leg, predominantly extending along the right posterior tibia l and peroneal vessels and extending at least to the right popliteal vessels. Mild associated enhance ment and muscular edema. No fluid collection to suggest abscess. Mild edema extending along the fasci a. Although nonspecific, the findings favor an extensive ascending infectious process. Equivocal soft tissue gas, suboptimally assessed by MRI. A CT of the right lower leg and foot is recommended to exc lude soft tissue gas which could indicate necrotizing fasciitis. 2. No evidence for acute osteomyelitis within the right tibia or fibula. ACT 112: Negative or not required by law. Electronically signed by: Wilver Powell M.D. 08/09/2021 9:17 PM
[2021-08-09] MEDS: NORTRIPTYLINE HCL 25 MG CAP PO SCH (22:01)
[2021-08-09] MEDS ORDERED: HYDROmorphone INJ 0.5 MG/0.5 ML SYR IV STA (22:16)
[2021-08-10] MEDS: ZOLPIDEM TARTRATE 10 MG TAB PO SCH ×2 (00:56→21:54)
[2021-08-10] MEDS: LORazepam 1 MG TAB PO SCH ×4 (00:56→21:54)
[2021-08-10] MEDS: rOPINIRole HCL 2 MG TABLET PO SCH ×2 (00:57→21:56)
[2021-08-10] MEDS: INSULIN ASPART PER UNIT SC SCH ×5 (01:05→21:56)
[2021-08-10] MEDS: CEFEPIME 2,000 MG in SYRINGE 0 ML IV SCH ×3 (01:23→17:14)
[2021-08-10] MEDS: HYDROmorphone INJ 1 MG/ML SYRINGE IV PRN ×5 (03:43→21:14)
[2021-08-10 04:53] LABS: Basophils # (auto) 0.03 K/uL (0-0.2); Basophils % (auto) 0.2 %; Eosinophils # (auto) 0.59 K/uL (0-0.5); Eosinophils % (auto) 4.2 %; Hematocrit (blood only) 31.8 % (37-47); Hemoglobin 10.4 g/dL (12.0-16.0); Immature Granulocytes # (auto) 0.04 K/uL (0.00-0.02); Immature Granulocytes % (auto) 0.3 %; Lymphocytes # (auto) 2.71 K/uL (1.2-3.4); Lymphocytes % (auto) 19.4 %; Mean Corpuscular Hemoglobin 27.2 pg (25-34); Mean Corpuscular Hgb Conc 32.7 g/dL (32-36); Mean Platelet Volume 8.9 fL (7.4-10.4); Monocytes # (auto) 1.69 K/uL (0.11-0.59); Monocytes % (auto) 12.1 %; Neutrophils # (auto) 8.92 K/uL (1.4-6.5); Neutrophils % (auto) 63.8 %; Platelet Count 336 K/uL (130-400); RDW Coefficient of Variation 13.8 % (11.5-14.5); RDW Standard Deviation 41.7 fL (36.4-46.3); Red Blood Count 3.83 M/uL (4.2-5.4); White Blood Count 13.98 K/uL (4.8-10.8)
[2021-08-10 05:23] LABS: BUN Creatinine Ratio 14.2 (10-20); Calcium 8.7 mg/dl (8.5-10.1); Creatinine Clr Calc Pharmacy 136.1 ml/min; Est GFR (African American) 132.9 ml/min; Est GFR (Non-African American) 114.7 ml/min; Potassium 3.9 mmol/L (3.5-5.1)
[2021-08-10] MEDS: ASPIRIN 81 MG ECTAB PO SCH (08:08)
[2021-08-10] MEDS: METOPROLOL SUCC 50MG EXT REL TAB PO SCH (08:09)
[2021-08-10] MEDS: INSULIN GLARGINE SOLOSTAR 100 UNITS/ML 3 ML PEN SC SCH ×2 (08:19→22:14)
[2021-08-10] MEDS ORDERED: INSULIN GLARGINE SOLOSTAR 100 UNITS/ML 3 ML PEN SC SCH (09:00)
[2021-08-10] MEDS ORDERED: ASPIRIN 81 MG ECTAB PO SCH (09:00)
[2021-08-10] MEDS ORDERED: LORazepam 1 MG TAB PO SCH (09:00)
--- NOTE | 2021-08-10 10:58 | Pharmacy Report ---
Pharmacy Glycemic Short Note 2 - Date of Service August 10, 2021 - Glycemic Short BSG Results (Last 24 hours): 08/09/21 08/09/21 08/10/21 12:20 20:32 00:59 Glucose 300 H POC Glucose 264 H 139 H 08/10/21 08/10/21 08/10/21 04:30 06:16 10:02 Glucose 151 H POC Glucose 152 H 109 H OUTPATIENT ANTIDIABETIC REGIMEN: * Lantus 40 units SQ qHS * Humalog 10 units TID with meals * A1c = 11.1% ASSESSMENT: * Mariana hoffman s 56 yr old T2DM admitted with right foot postoperative wound infection * Orthopedics consulted for debridement. Patient was made NPO at midnight. * During previous admission this month, the patient required significantly less insulin (20-30 units/day) compared to home dosing. Based on this data, basal insulin was decreased ~35%. Will continue to titrate based on additional BSG data. PLAN FOR INPATIENT GLYCEMIC CONTROL: * Hold outpatient oral diabetes medications * Basal insulin * Lantus per scale SQ BID * 0 units for BSG < 140, 10 units for BSG 140-180, 15 units for BSG > 180 mg/dl * Bolus insulin * NovoLog per scale ACHS or Q6hrs while NPO * Goal Range: Low 100 mg/dL - High 140 mg/dL * Correction Factor: 25 mg/dL/unit * Nutritional / Prandial insulin per carb ratio of 1 unit per 10 grams CHO consumed PLAN FOR DISCHARGE: *
[2021-08-10] MEDS ORDERED: HYDROmorphone INJ 0.5 MG/0.5 ML SYR IV PRN (13:14)
[2021-08-10] MEDS ORDERED: INSULIN ASPART PER UNIT SC SCH (16:30)
[2021-08-10] MEDS ORDERED: GADOBUTROL 65ML VIAL IV ONE (16:46)
[2021-08-10] MEDS: DAPTOmycin 225 MG in SYRINGE 0 ML IV SCH (17:14)
--- NOTE | 2021-08-10 17:56 | Magnetic Resonance Report ---
MR foot RT wo/w con CLINICAL HISTORY: Swelling and pain of the right great toe. Status post amputation of the distal phal anx of the great toe. Diabetic. Evaluate for osteomyelitis of the proximal phalanx of the great toe g reat toe/1st metatarsal. COMPARISON: Standard radiographs from 08/01/2021 TECHNIQUE: Multiplanar multisequence images of the distal right foot were performed with and without IV contrast. Contrast Volume: 6.7 ml of Gadavist FINDINGS: Osseous structures:There is diffuse marrow edema present involving the proximal phalanx of the great toe representing the presence of osteomyelitis. Homogeneous marrow signal is seen throughout the manjinder ining imaged bones of the foot. There is no other evidence for marrow edema or marrow replacement. There is diffuse enhancement of the proximal iliacs of the great toe following contrast infiltration confirming the presence of narrow edema and osteomyelitis. No other abnormal enhancement is seen. The patient is also status post amputation of the second toe. Joints: The first MTP joint is maintained. The remaining MTP joints and IP joints are also intact. Th e remaining imaged joints of the foot are intact. There is no evidence for joint effusion. Tendons: The extensor tendons along the dorsum of the foot and the flexor tendons along the plantar a spect of the foot are intact. The imaged distal plantar fascia is intact. Ligaments: The imaged ligaments of the foot are intact. Soft tissues: There is diffuse subcutaneous soft tissue swelling surrounding the amputated great toe. There is also enhances following contrast demonstration representing the presence of cellulitis. No focal abscess is seen. Subcutaneous soft tissue swelling extends along the dorsum of the foot as well . IMPRESSION: 1. MR findings characteristic of osteomyelitis of the proximal phalanx of the great toe. 2. No evidence for osteomyelitis involving the first metatarsal. 3. Diffuse edema surrounding the great toe representing cellulitis with no focal abscess. 4. Subcutaneous edema extends along the dorsum of the foot as well. ACT 112: Negative or not required by law. Electronically signed by: Jaylon Connell M.D. 08/10/2021 5:55 PM
[2021-08-10] MEDS ORDERED: PROCHLORPERAZINE 5 MG in SYRINGE 4 ML IV PRN (18:32)
[2021-08-10] MEDS ORDERED: ONDANSETRON INJ 2 MG/ML 2 ML VIAL ONE (18:41)
--- NOTE | 2021-08-10 19:04 | Hospitalist Progress Note ---
Date of Service August 10, 2021 Assessment & Plan (1) Postoperative wound infection: Plan: To be clearthis does not represent a complication from the prior surgery, but rather an ongoing infection that has unfortunately been very problematic for this patient for several months. Differential for failure to improve: Residual bone infection -Given MRI showing ongoing osteomyelitis proximal phalanx of great toe, this probably plays a role. Currently on antibiotics, orthopedics input regarding the need for further amputation Resistant bacteria -Certainly always a possibility, given repeated hospitalizations and recurrent courses of antibioticsno culture data would support that at this time, however, her current antibiotic regimen would be very unlikely to fail due to resistancecontinue cefepime and Dapto for now. Follow-up cultures PAD -Possible that some of her failure to improve is due to poor blood flowwas seen by vascular earlier this month, and they felt no intervention would be of benefit, but given that she is having recurrent infections, would ask them to revisit and reevaluate Uncontrolled diabetes -With her most recent A1c of 11.1%, whether from small vessel disease, or hyperglycemic induced immunosuppression, uncontrolled diabetes absolutely is playing a role in the situation. We will work on inpatient glycemic control, as well as hopefully being able to educate patient on better self control at home. ---> Continue daptomycin and cefepime for now. Serial exams, local wound care, orthopedics evaluationpossibly will need further amputation. Vascular reevaluation for question of any benefit of revascularization. Pain control. (2) Cellulitis: Plan: As well as highly probable myositis of her calf musclecontinue cefepime and Dapto, pain control. (3) Diabetes mellitus type 2, uncontrolled: Plan: Once her pain is better controlled, and she is more able to have discussions, will need to discuss outpatient control. Inpatient appreciate pharmacy glycemic assistance. (4) PAD (peripheral artery disease): Plan: See aboveawait vascular input (5) DVT prophylaxis: Plan: heparin SQ (6) Discharge planning issues: Plan: ongoing inpatient stay, lives at home - hopefully home once above more stable (7) Hyperlipidemia: Plan: atorva currently on hold due to dapto Admission and Anticipated Discharge Date Admission Date: August 09, 2021 Results & Data Results & Data ([facility]) Vital Signs (Past 12 Hours) Vital Signs Temp Pulse Resp BP Pulse Ox 08/10/21 17:19 98.4 F 91 H 16 145/74 H 98 08/10/21 12:57 86 18 124/82 95 08/10/21 07:48 98.2 F 101 H 18 106/72 98 08/10/21 07:15 101 H 16 106/72 98 PG Care Time/CCT Total # of Minutes Spent Total Time Spent with Patient: Total time spent is greater than 50% in coordination of care (as documented) at patient's floor/unit and/or counseling patient: Coding Level of Care Code 69113 Subseq Hosp Care Lvl 3 Diagnoses Postoperative wound infection T81.49XA Cellulitis L03.90 Diabetes mellitus type 2, uncontrolled E11.65 PAD (peripheral artery disease) I73.9 DVT prophylaxis Z29.9 Discharge planning issues Z02.9 Hyperlipidemia E78.5 Hyperlipidemia type: unspecified (1) Hyperlipidemia Hyperlipidemia type: unspecified Qualified Code(s): E78.5 - Hyperlipidemia, unspecified
[2021-08-10] MEDS ORDERED: ZOLPIDEM TARTRATE 10 MG TAB PO SCH (21:00)
[2021-08-10] MEDS ORDERED: rOPINIRole HCL 2 MG TABLET PO SCH (21:00)
[2021-08-10] MEDS: NORTRIPTYLINE HCL 25 MG CAP PO SCH (21:55)
[2021-08-10] MEDS: HEPARIN SOD 5,000 UNIT/0.5 ML VIAL SQ SCH (21:57)
[2021-08-10] MEDS: ONDANSETRON INJ 2 MG/ML 2 ML VIAL IV PRN (22:08)
[2021-08-11] MEDS: HYDROmorphone INJ 1 MG/ML SYRINGE IV PRN ×6 (00:53→22:59)
[2021-08-11] MEDS: CEFEPIME 2,000 MG in SYRINGE 0 ML IV SCH ×2 (00:53→08:34)
[2021-08-11] MEDS: ONDANSETRON INJ 2 MG/ML 2 ML VIAL IV PRN (07:46)
[2021-08-11 08:01] LABS: Appearance Urine Clear (Clear); Bilirubin Urine Negative (Negative); Blood Urine Negative (Negative); Color Urine Yellow; Glucose Urine UA Negative (Negative); Ketones Urine Trace (Negative); Leukocyte Esterase Urine Negative (Negative); Nitrite Urine Negative (Negative); Protein Urine Negative (Negative); Urobilinogen Urine Negative (Negative); pH Urine 6.5 (4.5-7.5)
[2021-08-11] MEDS: METOPROLOL SUCC 50MG EXT REL TAB PO SCH (08:36)
[2021-08-11] MEDS: ASPIRIN 81 MG ECTAB PO SCH (08:36)
[2021-08-11] MEDS: HEPARIN SOD 5,000 UNIT/0.5 ML VIAL SQ SCH (08:36)
[2021-08-11] MEDS: INSULIN GLARGINE SOLOSTAR 100 UNITS/ML 3 ML PEN SC SCH ×2 (08:37→20:50)
[2021-08-11] MEDS: LORazepam 1 MG TAB PO SCH ×3 (08:38→20:02)
[2021-08-11] MEDS: INSULIN ASPART PER UNIT SC SCH ×4 (08:56→20:50)
[2021-08-11] MEDS ORDERED: HYDROmorphone INJ 1 MG/ML SYRINGE IV STA (09:44)
--- NOTE | 2021-08-11 11:30 | Orthopedic Consultation ---
Date of Consultation August 11, 2021 Assessment & Plan (1) Osteomyelitis of great toe of right foot: She has evidence of right great toe osteomyelitis in the proximal phalanx after previous amputation through the IP joint level. She has worsening wound infection postoperatively after her previous surgery on July 23. She has been followed by Dr. Montaño for this. I discussed her case with him, and he is planning to take her to the operating room for great toe amputation tomorrow. N.p.o. after midnight. History of Present Illness Reason for Consultation: Right foot infection Attending Physician: Jon Whaley DO History of Present Illness Ms. Witt is a 56-year old female who is a patient of Dr. Montaño's who was sent over to the hospital from his clinic for admission for persistent/worsening right foot infection. She previously underwent a right great toe amputation through the IP joint level by Dr. Rushing earlier this month on July 23. She had persistent worsening of the wound postoperatively. Allergies Allergy/AdvReac Type Severity Reaction Status Date / Time morphine Allergy Severe blisters Verified 08/09/21 15:02 in mouth Sulfa (Sulfonamide Allergy Severe rash/swelli Verified 08/09/21 15:02 Antibiotics) ng vancomycin Allergy Intermediate YULIYA Verified 08/09/21 15:02 SYNDROME Home Medications Medication Instructions Recorded Confirmed Type aspirin 81 mg tablet,delayed 81 mg PO QAM 10/19/20 08/09/21 History release (Aspirin Low Dose) cyclobenzaprine 10 mg tablet 10 mg PO TID 10/19/20 08/09/21 History nortriptyline 50 mg capsule 100 mg PO HS 10/19/20 08/09/21 History (Pamelor) ropinirole 2 mg tablet 4 mg PO HS 10/19/20 08/09/21 History zolpidem 10 mg tablet (Ambien) 10 mg PO HS 10/19/20 08/09/21 History lancets (OneTouch UltraSoft #100 ea 11/12/20 07/14/21 History Lancets) atorvastatin 40 mg tablet (Lipitor) 40 mg PO HS 01/24/21 08/09/21 History lisinopril 10 mg tablet (Zestril) 10 mg PO QAM 01/24/21 08/09/21 History lorazepam 1 mg tablet (Ativan) 1 mg PO TID #21 tab 01/28/21 08/09/21 Rx albuterol sulfate 90 mcg/actuation 1 puff INHALATION QID PRN 03/05/21 08/09/21 History aerosol inhaler (Proventil HFA) insulin glargine 100 unit/mL (3 40 unit SUBCUT HS 03/05/21 08/09/21 History mL) subcutaneous pen (Basaglar KwikPen U-100 Insulin) insulin lispro 100 unit/mL 10 unit SUBCUT TIDM 03/05/21 08/09/21 History subcutaneous pen (Humalog KwikPen (U-100) Insulin) metoprolol succinate 50 mg 50 mg PO QAM 03/05/21 08/09/21 History tablet,extended release 24 hr (Toprol XL) amoxicillin 875 mg-potassium 1 tab PO BID #20 tab 07/24/21 08/09/21 Rx clavulanate 125 mg tablet (Augmentin) Patient History Medical History Chronic back pain Depression DM2 (diabetes mellitus, type 2) Gastritis GIB (gastrointestinal bleeding) Hyperlipidemia Insulin dependent diabetes mellitus Nonobstructive atherosclerosis of coronary artery Peripheral neuropathy Seizures Surgical History History of cardiac cath done at [facility]; 09/22/19; LM - mild luminal irregularities. LAD - mid 20-30%, distal with myocardial bridge & 30% stenosis. L Cx - mild luminal irregularities. RCA - proximal <30% stenosis; mid/distal vessel mild plaques. PDA - mild luminal irregularities. History of esophagogastroduodenoscopy (EGD) Family History Mother , age 63 Myocardial infarction Father , age 68 or 69 Myocardial infarction Brother S/P CABG (coronary artery bypass graft) Sister Myocardial infarction x 3; she is 57yo Social History Smoking Status: Former smoker Tobacco Type: Cigarettes packs per day: 1; Years Smoked: 20; Cigarettes Per Day: 1 PPD for 20 years; Second Hand Exposure: No; Hx Alcohol Use: No Hx Substance Use: Yes Last Used Substance: Unknown Substance Use Type Other:: Medical Marijuana Preferred Language: Citizen Of [place] Communication Ability: Effective Target Aircraft Controller Required: No Beliefs That Will Affect Care: None marital status: Current Living Situation: Spouse 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 This was recently changed by nursing this morning. Results & Data ([facility]) Vital Signs (Past 12 Hours) Vital Signs Temp Pulse Resp BP Pulse Ox 08/11/21 07:24 37.4 C 89 16 112/64 96 Diagnostic Findings Right foot MRI was reviewed. It shows evidence of osteomyelitis in the proximal phalanx of the great toe. Distal phalanx is absent. No evidence of osteomyelitis in the first metatarsal or any other bones in the foot.
--- NOTE | 2021-08-11 12:02 | Vascular Medicine Consultation ---
Date of Consultation August 11, 2021 Assessment & Plan (1) Osteomyelitis of great toe of right foot: 2. PAD 3.Insulin-dependent diabetes 4. Nonobstructive coronary disease 5. History of tobacco use 6. Dyslipidemia Patient readmitted with recurrent cellulitis, persistent osteomyelitis, no nhealing wound post right great toe partial amputation. Reviewed prior vascular imagingright leg with mild to moderate iliac/SFA disease. Moderate KERLINE disease. Right third toe pressure normal but potentially overestimated. Again on exam has 2+ DP/PT pulses. Patient scheduled to undergo right great toe amputation tomorrow. Suspect arterial perfusion should be adequate to heal surgical wounds. However, with current challenging clinical course recommend confirmatory lower extremity angiography at some point during this hospitalization. We will tentatively plan on angiogram via radial artery on Sunday. History of Present Illness Attending Physician: Jon Whaley DO History of Present Illness Mrs. Witt is a pleasant 56 year old woman with right great toe wound and PAD. She has known to me from prior outpatient visit and hospitalization. Medical history significant for insulin dependent type DM, dyslipidemia, hypertension, nonobstructive coronary artery disease, history of tobacco use, spinal stenosis. Previously cared for by [facility] care center. Right 2nd digit ulcer in January of 2021. No preceding trauma. Wound was complicated by infection. She eventually underwent amputation and states her surgical wound was slow to heal but is currently healed. Initially seen 07/13/2021 due to severe right great toe pain/wound and referred to [facility] for IV antibiotics. Underwent partial resection/abscess drainage with Dr. Montaño 07/16. Toe wound worsened and eventually underwent Right great toe partial amputation with Dr. Rushing 07/23/2021. Patient directed the ED yesterday from orthopedic office in the setting of severe pain, increased wound drainage. Pain now extending up right calf/knee. Right lower extremity MRI showed edema extending up foot to popliteal level along with osteomyelitis of proximal phalanx of right great toe. Prior vascular studies: CTA 07/2021: Mild distal right external iliac stenosis, mild to moderate bilateral SFA disease. Severe stenosis proximal left KERLINE. Moderate proximal right KERLINE. Arterial duplex 07/2021: Moderate proximal SFA stenosis (PSV 256), patent three- vessel runoff with monophasic flow, KERLINE stenosis (PSV 285) NATHAN/TBI 07/2021: Right NATHAN 0.96, left 1.1. Right third toe pressure 184 TBI 1.39. Left TBI 1.13. Social history: Lives with . Quit smoking about 6 months ago Allergies Allergy/AdvReac Type Severity Reaction Status Date / Time morphine Allergy Severe blisters Verified 08/09/21 15:02 in mouth Sulfa (Sulfonamide Allergy Severe rash/swelli Verified 08/09/21 15:02 Antibiotics) ng vancomycin Allergy Intermediate YULIYA Verified 08/09/21 15:02 SYNDROME Home Medications Medication Instructions Recorded Confirmed Type aspirin 81 mg tablet,delayed 81 mg PO QAM 10/19/20 08/09/21 History release (Aspirin Low Dose) cyclobenzaprine 10 mg tablet 10 mg PO TID 10/19/20 08/09/21 History nortriptyline 50 mg capsule 100 mg PO HS 10/19/20 08/09/21 History (Pamelor) ropinirole 2 mg tablet 4 mg PO HS 10/19/20 08/09/21 History zolpidem 10 mg tablet (Ambien) 10 mg PO HS 10/19/20 08/09/21 History lancets (OneTouch UltraSoft #100 ea 11/12/20 07/14/21 History Lancets) atorvastatin 40 mg tablet (Lipitor) 40 mg PO HS 01/24/21 08/09/21 History lisinopril 10 mg tablet (Zestril) 10 mg PO QAM 01/24/21 08/09/21 History lorazepam 1 mg tablet (Ativan) 1 mg PO TID #21 tab 01/28/21 08/09/21 Rx albuterol sulfate 90 mcg/actuation 1 puff INHALATION QID PRN 03/05/21 08/09/21 History aerosol inhaler (Proventil HFA) insulin glargine 100 unit/mL (3 40 unit SUBCUT HS 03/05/21 08/09/21 History mL) subcutaneous pen (Basaglar KwikPen U-100 Insulin) insulin lispro 100 unit/mL 10 unit SUBCUT TIDM 03/05/21 08/09/21 History subcutaneous pen (Humalog KwikPen (U-100) Insulin) metoprolol succinate 50 mg 50 mg PO QAM 03/05/21 08/09/21 History tablet,extended release 24 hr (Toprol XL) amoxicillin 875 mg-potassium 1 tab PO BID #20 tab 07/24/21 08/09/21 Rx clavulanate 125 mg tablet (Augmentin) Patient History Medical History Chronic back pain Depression DM2 (diabetes mellitus, type 2) Gastritis GIB (gastrointestinal bleeding) Hyperlipidemia Insulin dependent diabetes mellitus Nonobstructive atherosclerosis of coronary artery Peripheral neuropathy Seizures Surgical History History of cardiac cath done at [facility]; 09/22/19; LM - mild luminal irregularities. LAD - mid 20-30%, distal with myocardial bridge & 30% stenosis. L Cx - mild luminal irregularities. RCA - proximal <30% stenosis; mid/distal vessel mild plaques. PDA - mild luminal irregularities. History of esophagogastroduodenoscopy (EGD) Family History Mother , age 63 Myocardial infarction Father , age 68 or 69 Myocardial infarction Brother S/P CABG (coronary artery bypass graft) Sister Myocardial infarction x 3; she is 57yo Social History Smoking Status: Former smoker Tobacco Type: Cigarettes packs per day: 1; Years Smoked: 20; Cigarettes Per Day: 1 PPD for 20 years; Second Hand Exposure: No; Hx Alcohol Use: No Hx Substance Use: Yes Last Used Substance: Unknown Substance Use Type Other:: Medical Marijuana Preferred Language: [place] Communication Ability: Effective Hub Bander Required: No Beliefs That Will Affect Care: None marital status: Current Living Situation: Spouse 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 Sclerae anicteric. Lungs: Clear to auscultation bilaterally without rales, rhonchi or wheezes. Cardiac: Regular rate and rhythm. S1-S2 normal. No appreciable murmur, gallop or rub. Extremities/vascular: --Well perfused. No peripheral edema. --Radial 2+ bilaterally --Femoral 2+ bilaterally --Popliteal 2+ bilaterally --Dp/PT 2+ bilaterally --Right 2nd digit amputation. RT toe Results & Data ([facility]) Vital Signs (Past 12 Hours) Vital Signs Temp Pulse Resp BP Pulse Ox 08/11/21 07:24 99.3 F 89 16 112/64 96 PG Care Time/CCT Total # of Minutes Spent Total Time Spent with Patient: Total time spent is greater than 50% in coordination of care (as documented) at patient's floor/unit and/or counseling patient: Coding Level of Care Code 91967 Inpt Consult Level 4 Diagnoses Osteomyelitis of great toe of right foot M86.9
[2021-08-11] MEDS: ACETAMINOPHEN 325 MG TAB PO SCH ×3 (13:13→20:03)
--- NOTE | 2021-08-11 16:31 | Hospitalist Progress Note ---
Date of Service August 11, 2021 Assessment & Plan (1) Postoperative wound infection: Plan: To be clearthis does not represent a complication from the prior surgery, but rather an ongoing infection that has unfortunately been very problematic for this patient for several months. Differential for failure to improve: Residual bone infection -Given MRI showing ongoing osteomyelitis proximal phalanx of great toe, this probably plays a role. Currently on antibiotics, orthopedics consulted to determine needs for further amputation Resistant bacteria -Certainly always a possibility, given repeated hospitalizations and recurrent courses of antibioticsno culture data would support that at this time, however, her current antibiotic regimen would be very unlikely to fail due to resistancecontinue cefepime and Dapto for now. Follow-up cultures PAD -Possible that some of her failure to improve is due to poor blood flowwas seen by vascular earlier this month, and they felt no intervention would be of benefit, but given that she is having recurrent infections, would ask them to revisit and reevaluate Uncontrolled diabetes -With her most recent A1c of 11.1%, whether from small vessel disease, or hyperglycemic induced immunosuppression, uncontrolled diabetes absolutely is playing a role in the situation. We will work on inpatient glycemic control, as well as hopefully being able to educate patient on better self control at home. ---> Continue daptomycin and cefepime for now. Serial exams, local wound care, orthopedics & vascular evaluationappreciate input from Dr. Vee & Dr. Lin. Pt will go back to OR on 08/12 for amputation of R hallux, (NPO after MN). Per vascular, plan for angiogram vial radial artery on Tuesday 08/15. (2) Cellulitis: Plan: As well as highly probable myositis of her calf musclecontinue cefepime and Dapto, pain control. (3) Diabetes mellitus type 2, uncontrolled: Plan: Once her pain is better controlled, and she is more able to have discussions, will need to discuss outpatient control. Inpatient appreciate pharmacy glycemic assistance. BS have been reasonably controlled, highest reading was 264 on 08/09 but remaining have been in acceptable range (4) PAD (peripheral artery disease): Plan: See aboveangiogram on Tuesday 08/15 as noted Appreciate input from Dr. Lin (5) DVT prophylaxis: Plan: heparin SQ (6) Discharge planning issues: Plan: ongoing inpatient stay, lives at home w/ - hopefully home once above more stable (7) Hyperlipidemia: Plan: atorva currently on hold due to dapto Plan: As above, NPO after MN for OR tomorrow, hold Heparin AM labs ordered Admission and Anticipated Discharge Date Admission Date: August 09, 2021 Supervising Physician Co-Signing Physician Notes chart reviewed case d/w Aquiles Maurice PAC - as above Subjective Mrs. Witt was seen on rounds this afternoon. She is resting in bed and offers no new complaints or concerns. She states that her R foot pain is controlled. Denies chest pain, dyspnea, n/v/d, f/c, headache, or gu symptoms. Review of Systems Review of Systems: CONSTITUTIONAL: Denies weight loss/gain, fever and chills, fatigue, malaise, generalized weakness. HEENT: Denies changes in vision and hearing. RESPIRATORY: Denies SOB, cough, wheezing. CV: Denies palpitations, CP, lower extremity edema, orthopnea, PND. GI: Denies abdominal pain, nausea, vomiting and diarrhea. : Denies dysuria and urinary frequency, urgency, hesitancy. MUSCULOSKELETAL: Denies myalgia and joint pain. SKIN: wounds r foot following recent amputation. NEUROLOGICAL: Denies headache, syncope, focal weakness, numbness, tingling. PSYCHIATRIC: Denies recent changes in mood. Denies anxiety and depression. Physical Exam Physical Exam: GENERAL: 56 yo WD/WN WF. NAD. LUNGS: Clear to auscultation bilaterally. No accessory muscle use. No W/R/R. CARDIOVASCULAR: Regular rate and rhythm. No M/G/R. No JVD. ABDOMEN: Soft, non-tender, BS normal x 4 quad. EXTREMITIES: Tender to palpation of R foot and ankle. NEUROLOGIC: A&O x3. PSYCHIATRIC: Cooperative. Appropriate mood and affect. SKIN: R foot wounds dressed, wrapped in ayad. No other obvious skin rashes or lesions visualized. Results & Data Results & Data ([facility]) Vital Signs (Past 12 Hours) Vital Signs Temp Pulse Resp BP BP Pulse Ox 08/11/21 15:21 36.4 C L 80 16 118/73 99 08/11/21 07:24 37.4 C 89 16 112/64 96 Laboratory Results No lab data from this morning PG Care Time/CCT Total # of Minutes Spent Total Time Spent with Patient: Total time spent is greater than 50% in coordination of care (as documented) at patient's floor/unit and/or counseling patient: Coding Level of Care Code 03697 Subseq Hosp Care Lvl 2 Diagnoses Postoperative wound infection T81.49XA Cellulitis L03.90 Diabetes mellitus type 2, uncontrolled E11.65 PAD (peripheral artery disease) I73.9 DVT prophylaxis Z29.9 Discharge planning issues Z02.9 Hyperlipidemia E78.5 Hyperlipidemia type: unspecified (1) Hyperlipidemia Hyperlipidemia type: unspecified Qualified Code(s): E78.5 - Hyperlipidemia, unspecified
[2021-08-11] MEDS: DAPTOmycin 225 MG in SYRINGE 0 ML IV SCH (16:36)
[2021-08-11] MEDS: CYCLOBENZAPRINE HCL 10 MG TAB PO SCH (20:02)
[2021-08-11] MEDS: ZOLPIDEM TARTRATE 10 MG TAB PO SCH (20:02)
[2021-08-11] MEDS: rOPINIRole HCL 2 MG TABLET PO SCH (20:02)
[2021-08-11] MEDS: NORTRIPTYLINE HCL 25 MG CAP PO SCH (20:03)
[2021-08-12] MEDS: HYDROmorphone INJ 1 MG/ML SYRINGE IV PRN ×5 (02:12→16:56)
[2021-08-12] MEDS ORDERED: Nursing to Pharmacy Communication SCH ×2 (03:00→18:15)
[2021-08-12] MEDS: INSULIN ASPART PER UNIT SC SCH ×4 (06:17→21:07)
[2021-08-12 06:23] LABS: Basophils # (auto) 0.03 K/uL (0-0.2); Basophils % (auto) 0.3 %; Eosinophils # (auto) 0.56 K/uL (0-0.5); Eosinophils % (auto) 4.9 %; Hematocrit (blood only) 36.7 % (37-47); Hemoglobin 11.9 g/dL (12.0-16.0); Immature Granulocytes # (auto) 0.04 K/uL (0.00-0.02); Immature Granulocytes % (auto) 0.4 %; Lymphocytes # (auto) 2.77 K/uL (1.2-3.4); Lymphocytes % (auto) 24.5 %; Mean Corpuscular Hemoglobin 26.7 pg (25-34); Mean Corpuscular Hgb Conc 32.4 g/dL (32-36); Mean Corpuscular Volume 82.5 fL (80-100); Mean Platelet Volume 9.3 fL (7.4-10.4); Monocytes # (auto) 0.99 K/uL (0.11-0.59); Monocytes % (auto) 8.7 %; Neutrophils # (auto) 6.93 K/uL (1.4-6.5); Neutrophils % (auto) 61.2 %; Platelet Count 418 K/uL (130-400); RDW Coefficient of Variation 13.5 % (11.5-14.5); RDW Standard Deviation 40.9 fL (36.4-46.3); Red Blood Count 4.45 M/uL (4.2-5.4); White Blood Count 11.32 K/uL (4.8-10.8)
[2021-08-12 06:56] LABS: Albumin Globulin Ratio 0.7 (0.9-2); Albumin Level 3.2 gm/dl (3.4-5.0); Bilirubin,Total 0.5 mg/dl (0.2-1); Calcium 9.6 mg/dl (8.5-10.1); Creatinine Clr Calc Pharmacy 107.3 ml/min; Est GFR (African American) 122.9 ml/min; Est GFR (Non-African American) 106.1 ml/min; Globulin 4.7 gm/dl (2.5-4.0); Potassium 4.2 mmol/L (3.5-5.1); Total Protein 7.9 gm/dl (6.4-8.2)
[2021-08-12] MEDS: ONDANSETRON INJ 2 MG/ML 2 ML VIAL IV PRN (07:51)
[2021-08-12] MEDS ORDERED: INSULIN GLARGINE SOLOSTAR 100 UNITS/ML 3 ML PEN SC ONE (09:00)
[2021-08-12] MEDS ORDERED: ATROPINE SULFATE 0.1 MG/ML 10ML SYR IV PRN ×2 (09:17→09:37)
[2021-08-12] MEDS ORDERED: ONDANSETRON INJ 2 MG/ML 2 ML VIAL IV PRN (09:17)
[2021-08-12] MEDS ORDERED: ePHEDrine sulfate 50 MG/ML AMP IV PRN ×3 (09:17→09:37)
--- NOTE | 2021-08-12 09:17 | Anesthesiology Consultation ---
Date of Service August 12, 2021 Assessment & Plan (1) Encounter for pre-operative examination: History Surgery Operation Date: 08/12/21 09:25 Proposed Procedures p Right Great Toe Amputation - Akhil Montaño DO Height/Weight Height: 5 ft 2 in Weight: 67.2 kg Allergies Allergy/AdvReac Type Severity Reaction Status Date / Time morphine Allergy Severe blisters Verified 08/09/21 15:02 in mouth Sulfa (Sulfonamide Allergy Severe rash/swelli Verified 08/09/21 15:02 Antibiotics) ng vancomycin Allergy Intermediate YULIYA Verified 08/09/21 15:02 SYNDROME Medications Home Medications Medication Instructions Recorded Confirmed Last Taken aspirin 81 mg tablet,delayed 81 mg PO QAM 10/19/20 08/09/21 08/08/21 release (Aspirin Low Dose) cyclobenzaprine 10 mg tablet 10 mg PO TID 10/19/20 08/09/21 08/08/21 nortriptyline 50 mg capsule 100 mg PO HS 10/19/20 08/09/21 08/08/21 (Pamelor) ropinirole 2 mg tablet 4 mg PO HS 10/19/20 08/09/21 08/08/21 zolpidem 10 mg tablet (Ambien) 10 mg PO HS 10/19/20 08/09/21 08/08/21 lancets (OneTouch UltraSoft #100 ea 11/12/20 07/14/21 Unknown Lancets) atorvastatin 40 mg tablet (Lipitor) 40 mg PO HS 01/24/21 08/09/21 08/08/21 lisinopril 10 mg tablet (Zestril) 10 mg PO QAM 01/24/21 08/09/21 08/08/21 lorazepam 1 mg tablet (Ativan) 1 mg PO TID #21 tab 01/28/21 08/09/21 08/08/21 albuterol sulfate 90 mcg/actuation 1 puff INHALATION QID PRN 03/05/21 08/09/21 03/05/21 aerosol inhaler (Proventil HFA) insulin glargine 100 unit/mL (3 40 unit SUBCUT HS 03/05/21 08/09/21 08/08/21 mL) subcutaneous pen (Basaglar KwritaPen U-100 Insulin) insulin lispro 100 unit/mL 10 unit SUBCUT TIDM 03/05/21 08/09/21 08/08/21 subcutaneous pen (Humalog KwikPen (U-100) Insulin) metoprolol succinate 50 mg 50 mg PO QAM 03/05/21 08/09/21 08/08/21 tablet,extended release 24 hr (Toprol XL) amoxicillin 875 mg-potassium 1 tab PO BID #20 tab 07/24/21 08/09/21 08/08/21 clavulanate 125 mg tablet (Augmentin) Active Medications Generic Name Dose Route Start Last Admin Trade Name Freq PRN Reason Stop Dose Admin Acetaminophen 650 mg 08/11/21 09:45 08/11/21 20:03 Acetaminophen 325 Mg Tab PO 09/10/21 09:44 650 mg QID RICKY Administration Aspirin 81 mg 08/10/21 09:00 08/11/21 08:36 Aspirin 81 Mg Ectab PO 09/09/21 08:59 81 mg QAM RICKY Administration Cyclobenzaprine HCl 10 mg 08/11/21 21:00 08/11/21 20:02 Cyclobenzaprine Hcl 10 Mg Tab PO 09/10/21 20:59 10 mg TID RICKY Administration Heparin Sodium (Porcine) 5,000 units 08/10/21 21:00 08/11/21 08:36 Heparin Sod 5,000 Unit/0.5 Ml Vial SQ 09/09/21 20:59 5,000 units Q12 RICKY Administration Hydromorphone HCl 1 mg 08/10/21 13:14 08/12/21 07:47 Hydromorphone Inj 1 Mg/Ml Syringe IV 08/23/21 18:44 1 mg Q3H PRN Administration Severe Pain (7,8,9,10) on NRS Daptomycin 225 mg/ Syringe 4.5 mls @ 2.25 mls/min 08/10/21 16:00 08/11/21 16:36 IV 08/16/21 15:59 2.25 mls/min Q24H RICKY Administration Protocol Insulin Aspart 0 units 08/12/21 06:00 08/12/21 06:17 Insulin Aspart Per Unit SC 09/11/21 05:59 1 units Q6 RICKY Administration Insulin Glargine 0 units 08/10/21 09:00 08/11/21 20:50 Insulin Glargine Solostar 100 Units/Ml 3 Ml Pen SC 09/09/21 08:59 10 units BID RICKY Administration Protocol Lorazepam 1 mg 08/09/21 23:45 08/11/21 20:02 Lorazepam 1 Mg Tab PO 09/08/21 23:44 1 mg TID RICKY Administration Metoprolol Succinate 50 mg 08/10/21 09:00 08/11/21 08:36 Metoprolol Succ 50mg Ext Rel Tab PO 09/09/21 08:59 50 mg QAM RICKY Administration Nortriptyline HCl 100 mg 08/09/21 21:00 08/11/21 20:03 Nortriptyline Hcl 25 Mg Cap PO 09/08/21 20:59 100 mg HS RICKY Administration Ondansetron HCl 4 mg 08/10/21 18:32 08/12/21 07:51 Ondansetron Inj 2 Mg/Ml 2 Ml Vial IV 09/09/21 18:31 4 mg Q6H PRN Administration Nausea And Vomiting Ropinirole HCl 4 mg 08/10/21 00:35 08/11/21 20:02 Ropinirole Hcl 2 Mg Tablet PO 09/09/21 00:34 4 mg HS RICKY Administration Zolpidem Tartrate 10 mg 08/10/21 00:35 08/11/21 20:02 Zolpidem Tartrate 10 Mg Tab PO 09/09/21 00:34 10 mg HS RICKY Administration NPO Date Last Intake of Fluids: 08/11/21 Time Last Intake of Fluids: 20:00 Last Intake of Fluids Comment: ice chip Date Last Intake of Solids: 08/11/21 Time Last Intake of Solids: 18:00 Past Medical History Medical History (Updated 08/12/21 @ 09:17 by Ashley Elias MD) Cellulitis Chronic back pain Depression DM2 (diabetes mellitus, type 2) Gastritis GIB (gastrointestinal bleeding) Hyperlipidemia Insulin dependent diabetes mellitus Nonobstructive atherosclerosis of coronary artery Numbness of lower extremity Peripheral neuropathy Right second toe ulcer Seizures Past Family History Family History Mother , age 63 Myocardial infarction Father , age 68 or 69 Myocardial infarction Brother S/P CABG (coronary artery bypass graft) Sister Myocardial infarction x 3; she is 57yo Past Surgical History Surgical History History of cardiac cath done at [facility]; 09/22/19; LM - mild luminal irregularities. LAD - mid 20-30%, distal with myocardial bridge & 30% stenosis. L Cx - mild luminal irregularities. RCA - proximal <30% stenosis; mid/distal vessel mild plaques. PDA - mild luminal irregularities. History of esophagogastroduodenoscopy (EGD) Social History Smoking Status: Former smoker tobacco type: cigarettes Smoking cigarettes per day: 1 PPD for 20 years Hx Alcohol Use: No Hx Substance Use: Yes substance use type: marijuana Substance Use Type Other:: Medical Marijuana Last Used Substance: Unknown Physical Exam Vital Signs Last Vital Signs Temp 36.8 C 08/12/21 08:56 Pulse 89 08/12/21 08:56 Resp 20 08/12/21 08:56 BP 146/80 H 08/12/21 08:56 Pulse Ox 95 08/12/21 08:56 Testing Laboratory Results 08/12/21 06:11 08/12/21 06:11 PT 10.0 Seconds (9.0-12.0) 08/09/21 12:20 INR 1.0 (0.9-1.1) 08/09/21 12:20 APTT 23.1 Seconds (21.0-31.0) 08/09/21 12:20 Urine Color Yellow 08/11/21 07:40 Urine Appearance Clear (Clear) 08/11/21 07:40 Urine pH 6.5 (4.5-7.5) 08/11/21 07:40 Ur Specific [place] 1.020 (1.000-1.030) 08/11/21 07:40 Urine Protein Negative (Negative) 08/11/21 07:40 Urine Glucose (UA) Negative (Negative) 08/11/21 07:40 Urine Ketones Trace (Negative) H 08/11/21 07:40 Urine Nitrite Negative (Negative) 08/11/21 07:40 Ur Leukocyte Esterase Negative (Negative) 08/11/21 07:40 08/09/21 15:26 Aerobic Blood Culture - Preliminary Blood No growth in Aerobic bottle after 48 hours. Anaerobic Blood Culture - Preliminary No growth in Anaerobic bottle after 48 hours. 08/09/21 12:20 Aerobic Blood Culture - Preliminary Blood No growth in Aerobic bottle after 48 hours. Anaerobic Blood Culture - Preliminary No growth in Anaerobic bottle after 48 hours. 08/09/21 Unknown Gram Stain - Final Foot Wound Culture - Final Staph aureus MRSA 08/12/21 06:12 POC Glucose 142 H Electrocardiogram Date: 08/01/21 Sinus tachycardia Abnormal ECG When compared with ECG of 08-MAR-2021 08:52, T wave inversion now evident in Anterior leads Confirmed by Harvinder Guerra ([id number]) on 08/09/2021 5:54:56 PM
[2021-08-12] MEDS ORDERED: KETAMINE 50 MG/5 ML SYRINGE ONE (09:29)
[2021-08-12] MEDS ORDERED: NALBUPHINE HCL INJ 10 MG/ML AMP IV PRN (09:37)
[2021-08-12] MEDS ORDERED: NALOXONE HCL 0.4 MG/1 ML VIAL/CARP IV PRN ×2 (09:37→17:34)
[2021-08-12] MEDS ORDERED: diphenhydrAMINE 50 MG/ML VIAL IV PRN (09:37)
[2021-08-12] MEDS ORDERED: NALOXONE HCL 1 MG in SODIUM CHLORIDE 0.9% 1000ML 1,000 ML IV PRN (09:37)
[2021-08-12] MEDS ORDERED: HYDROmorphone INJ 1 MG/ML SYRINGE IV PRN (09:37)
[2021-08-12] MEDS ORDERED: BUPIVACAINE 0.5 % 5 MG/1 ML MPF 30ML VIAL ONE (10:00)
--- NOTE | 2021-08-12 10:00 | History & Physical Bridge Note ---
Date of Service August 12, 2021 History & Physical Bridge Note I have examined the patient, reviewed the History & Physical and in the interval since the performance of the History & Physical I have noted the following changes of clinical significance: no changes noted
[2021-08-12] MEDS: ASPIRIN 81 MG ECTAB PO SCH (10:09)
[2021-08-12] MEDS: ACETAMINOPHEN 325 MG TAB PO SCH ×4 (10:09→20:06)
[2021-08-12] MEDS: METOPROLOL SUCC 50MG EXT REL TAB PO SCH (10:09)
[2021-08-12] MEDS: LORazepam 1 MG TAB PO SCH ×3 (10:09→20:06)
[2021-08-12] MEDS: CYCLOBENZAPRINE HCL 10 MG TAB PO SCH ×3 (10:09→20:06)
[2021-08-12] MEDS ORDERED: ONDANSETRON INJ 2 MG/ML 2 ML VIAL ONE (10:19)
[2021-08-12] MEDS ORDERED: LIDOCAINE 1% LOCAL 20 ML VIAL ONE (10:34)
[2021-08-12] MEDS ORDERED: ePHEDrine sulfate 50 MG/ML SYR ONE ×2 (10:52→11:23)
[2021-08-12] MEDS ORDERED: PROPOFOL IV EMULSION 10 MG/ML 20 ML VIAL IV ONE (11:23)
[2021-08-12] MEDS ORDERED: fentaNYL citrate 100 MCG/2 ML VIAL ONE (11:25)
[2021-08-12] MEDS ORDERED: MIDAZOLAM HCL 1 MG/ML 2ML VIAL ONE (11:25)
--- NOTE | 2021-08-12 11:49 | Post Operative Brief Note ---
Immediate Post Op Note v1 Date of Surgery August 12, 2021 Pre & Post Diagnosis Operation Date: 08/12/21 09:25 Pre-Op Diagnosis: Right great toe osteomyelitis, flexor hallucis longus suppurative tenosynovitis, abscess medial hindfoot, infectious tenosynovitis flexor digitorum longus tendon, infectious tenosynovitis posterior tibial tendon Post-Op Diagnosis: Right great toe osteomyelitis, flexor hallucis longus suppurative tenosynovitis, abscess medial hindfoot, infectious tenosynovitis flexor digitorum longus tendon, infectious tenosynovitis posterior tibial tendon I identified the patient and participated in the time-out.: Yes Procedure Operation Date: 08/12/21 09:25 Actual Procedures p 1. Right Great Toe Amputation 2. Resection flexor hallucis longus tendon 3. Incision and drainage abscess medial hindfoot 4. Tenosynovectomy suppurative flexor digitorum longus tendon 5. Tenosynovectomy suppurative posterior tibial tendon DO Danyel Surgeon Akhil Montaño DO Ordnance Keeper None Estimated Blood Loss 5 Findings Consistent with Post-Op Diagnosis Specimens Aerobic anaerobic Gram stain abscess medial hindfoot Suppurative tenosynovitis posterior tibial tendon Drains Other (1/2 inch iodoform gauze drain right great toe, 1/2 inch iodoform gauze drain medial hindfoot) Complications none Disposition Accompanied Patient To Recovery: Yes
[2021-08-12] MEDS: fentaNYL citrate 100 MCG/2 ML VIAL IV PRN ×3 (11:54→12:04)
--- NOTE | 2021-08-12 12:24 | Pharmacy Report ---
Pharmacy Glycemic Short Note 2 - Date of Service August 12, 2021 - Glycemic Short BSG Results (Last 24 hours): 08/11/21 08/11/21 08/12/21 17:03 20:43 06:11 Glucose 141 H POC Glucose 98 162 H 08/12/21 08/12/21 08/12/21 06:12 09:26 11:47 Glucose POC Glucose 142 H 120 H 111 H OUTPATIENT ANTIDIABETIC REGIMEN: * Lantus 40 units SQ qHS * Humalog 10 units TID with meals * A1c = 11.1% ASSESSMENT: 08/12/21 * Patient's BSGs yesterday were 90-376-85-162 mg/dL. * Fasting today is 142 mg/dL. Patient was NPO this morning for great toe amputation. * Patient received 14 units of insulin yesterday (10 units of basal and 4 units of bolus). * Appears no steroids pulled during surgery. * Will give 10 units of Lantus tonight for total basal dose of 15 units. * Continue Novolog Background * Mariana is s 56 yr old T2DM admitted with right foot postoperative wound infection * Orthopedics consulted for debridement. Patient was made NPO at midnight. * During previous admission this month, the patient required significantly less insulin (20-30 units/day) compared to home dosing. Based on this data, basal insulin was decreased ~35%. Will continue to titrate based on additional BSG data. PLAN FOR INPATIENT GLYCEMIC CONTROL: * Hold outpatient oral diabetes medications * Basal insulin * Lantus 10 units SQ BID * Bolus insulin * NovoLog per scale ACHS or Q6hrs while NPO * Goal Range: Low 100 mg/dL - High 140 mg/dL * Correction Factor: 25 mg/dL/unit * Nutritional / Prandial insulin per carb ratio of 1 unit per 10 grams CHO consumed PLAN FOR DISCHARGE: * TBD
--- NOTE | 2021-08-12 13:54 | Anesthesiology Progress Note ---
Date of Service August 12, 2021 Anesthesia Post Procedure Vital Signs Vital Signs: Temp Pulse Pulse Resp BP BP Pulse Ox 08/12/21 13:24 36.4 C L 84 18 137/80 96 08/12/21 12:20 36.4 C L 79 18 108/70 97 08/12/21 12:10 82 14 114/63 96 08/12/21 12:00 77 14 129/97 99 08/12/21 11:50 79 14 134/72 100 08/12/21 11:44 36.5 C 80 16 101/60 99 08/12/21 08:56 36.8 C 89 20 146/80 H 95 08/12/21 07:40 36.8 C 92 H 22 102/71 100 08/11/21 22:40 36.9 C 85 18 122/69 93 08/11/21 15:21 36.4 C L 80 16 118/73 99 Pain Intensity Right Foot: Pain Intensity: 10 Right Lower Leg: Pain Intensity: 4 Transfer of Care Handoff Completed per policy Notes Mental Status: alert / awake / arousable and participated in evaluation Patient Amnestic to Procedure: Yes Nausea / Vomiting: adequately controlled Pain: adequately controlled Airway Patency, RR, SpO2: stable & adequate BP & HR: stable & adequate Hydration State: stable & adequate Anesthetic Complications: no major complications apparent and Pt Satisfied with anesthetic care
--- NOTE | 2021-08-12 14:01 | Operative Report (OR) ---
DATE OF PROCEDURE: 08/12/2021. PREOPERATIVE DIAGNOSES: 1. Right great toe osteomyelitis. 2. Flexor hallucis longus suppurative tenosynovitis. 3. Abscess, medial hindfoot. 4. Infectious tenosynovitis of the flexor digitorum longus tendon. 5. Infectious tenosynovitis of the posterior tibial tendon. POSTOPERATIVE DIAGNOSES: 1. Right great toe osteomyelitis. 2. Flexor hallucis longus suppurative tenosynovitis. 3. Abscess, medial hindfoot. 4. Infectious tenosynovitis of the flexor digitorum longus tendon. 5. Infectious tenosynovitis of the posterior tibial tendon. PROCEDURES: 1. Right great toe amputation. 2. Resection flexor hallucis longus tendon. 3. Incision and drainage of abscess, medial hindfoot. 4. Tenosynovectomy suppurative flexor digitorum longus tendon. 5. Tenosynovectomy suppurative posterior tibial tendon. SURGEON: Akhil Montaño DO. DIRECTOR OF STUDENT AID: None. ANESTHESIA: General LMA with regional. SPECIMENS: 1. Aerobic, anaerobic, Gram stain, abscess medial hindfoot. 2. Infectious tenosynovitis of the posterior tibial tendon. DRAINS: 1/2 inch iodoform gauze drain in the great toe and the medial hindfoot. COMPLICATIONS: None. BLOOD LOSS: 5 mL. PERTINENT HISTORY: This is a 56-year-old female who has had ongoing issues with diabetes mellitus, p oor blood sugar control, atherosclerotic vascular disease and abscess with osteomyelitis in the foot, right side. She had attempted and failed conservative management and had a prior irrigation and marybeth ridement of the distal phalanx. She then had to undergo an amputation of the distal phalanx of the g reat toe and then continued discomfort, pain, redness, and swelling with proximal radiation into the foot and into the distal right lower leg. Had an MRI, which demonstrated clear evidence of osteomyeli tis of the proximal phalanx of the great toe without any involvement of the first metatarsal head and features consistent with abscess and tenosynovitis of the flexor hallucis longus, flexor digitorum l ongus and the posterior tibial tendon. The patient was then scheduled for surgery as indicated. All potential risks, benefits, complications, alternatives, rehab potential for incomplete relief sym ptoms, need for further surgery, DVT, PE, , persistent pain, swelling, scarring, weakness, neuro vascular injury, wound complications, need for further amputation was discussed with the patient. Th e patient decided to proceed with procedure as indicated. DESCRIPTION OF PROCEDURE: The patient was taken to the operative suite and placed supine on the tabl e. After review of consent and identification of proper site, the patient was anesthetized, LMA was placed. Tourniquet was placed high on the right thigh over cast padding, however, the pneumatic tour niquet was not used during the case. Right lower extremity was then sterilely prepped and draped in the usual fashion. The foot was gently elevated and then an Esmarch tourniquet was applied over ster ile surgical towel at the proximal ankle to avoid exsanguination due to the infection. The ankle the n had a regional nerve block performed with 30 mL of 0.5% Marcaine plain and then 10 mL of 1% lidocai ne plain. Next, after surgical timeout was performed, the 15 blade was then used to make a dorsal incision at t he metaphyseal diaphyseal flare of the proximal phalanx of the great toe transversely full thickness from the skin down to the level of bone. Next, medial and lateral incisions were performed along the midlateral line and then extending distally to preserve longer plantar flap for more durability. Th ere was adequate tissue coverage. Next, the proximal phalanx was then skeletonized with a 15 blade s calpel after transection of the capsular ligaments circumferentially of the great toe. A towel clip was then used to navarro the softened necrotic bone with ease and this was then passed off as specimen . Tracking fluid and suppurative tenosynovitis was noted of the flexor hallucis longus tendon. This was then placed on significant traction with the foot held in plantar flexion and then the flexor rowland llucis longus tendon was then transected. Once the obviously necrotic tissue and tissue infected was then resected with a rongeur, a pulsatile lavage with Ancef 1 gram additive was then used to cleanse the great toe until clear. Flaps were not ed to be viable and top gloves and top sheet were changed followed by placement of 1/2 inch iodoform gauze packing using a small exit stab incision proximal medial foot. Next, the flap was then closed in a low tension fashion using interrupted 3-0 nylon sutures with a combination of simple and vertica l mattress stitches. Next, attention was then directed toward the medial hindfoot and then a curvili near incision was made centered over the flexor digitorum longus tendon with a 15 blade scalpel. Ful l thickness skin flaps were developed. Careful dissection was performed with tenotomy scissors and t hen full-thickness skin flaps were then retracted using Sujata rakes. Hemostasis was achieved with columba ctrocautery and the laciniate ligament was then incised, noting an abscess fluid collection. The aero bic, anaerobic, Gram stain specimen was then collected from this fluid and then sent off as specimen for analysis. Next, a 15 blade scalpel was used to make an incision in the flexor digitorum longus tendon sheath, r evealing the tendon suppurative infectious fluid and hypertrophic suppurative tenosynovitis was encou ntered. Next, the posterior tibial tendon sheath was then entered with a 15-blade scalpel and then d issection was performed proximal and distal with tenotomy scissors revealing a similar degree of supp urative tenosynovitis with infectious fluid. A rongeur was then used to resect the infected tenosyno vium. This was then passed off as specimen of the posterior tibial tendon. Next, after tenosynovect nel was then performed of the posterior tibial tendon, similarly a tenosynovectomy was then performed of the flexor digitorum longus tendon. Once the tendons were noted to be cleared of any obviously infected tenosynovium, a pulsatile lavage with 1 gram additive of Ancef was then used to cleanse the medial hindfoot and the abscess pocket inc luding the posterior tibial tendon and flexor digitorum longus tendons with a pulse lavage. The flex or hallucis longus tendon sheath was also entered and lavaged until clear. Next, a 1/2 inch iodoform gauze packing was packed along the tendon sheath and then full-thickness closure was then performed with 4-0 nylon sutures using combination of horizontal mattress and simple sutures. Once this was co mpleted, a sterile compressive dressing was applied consisting of Xeroform gauze, sterile 4 x 4s, ABD pads, 4-inch cast padding, and an Mikey wrap was then applied. The tourniquet was released. The jadiel ent was awakened and taken to recovery in stable condition. Job ID: [id number]
[2021-08-12] MEDS: DAPTOmycin 225 MG in SYRINGE 0 ML IV SCH (16:41)
[2021-08-12] MEDS ORDERED: HYDROmorphone INJ 1 MG/ML SYRINGE IV STA (17:34)
[2021-08-12] MEDS: SODIUM CHLORIDE 0.9% 1000ML 1,000 ML IV SCH (18:25)
[2021-08-12] MEDS: HYDROmorphone PCA 30 MG/30 ML IV PRN (18:25)
--- NOTE | 2021-08-12 19:24 | Hospitalist Progress Note ---
Date of Service August 12, 2021 Assessment & Plan (1) Postoperative wound infection: Plan: To be clearthis does not represent a complication from the prior surgery, but rather an ongoing infection that has unfortunately been very problematic for this patient for several months. Differential for failure to improve: Residual bone infection -Given MRI showing ongoing osteomyelitis proximal phalanx of great toe, this probably plays a role. Postop now, continue daptomycin. 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 Uncontrolled diabetes -With her most recent A1c of 11.1%, whether from small vessel disease, or hyperglycemic induced immunosuppression, uncontrolled diabetes absolutely is playing a role in the situation. We will work on inpatient glycemic control, as well as hopefully being able to educate patient on better self control at home. (Currently the need to get pain control before she will really be able to have productive discussions on outpatient glycemic control) (2) Cellulitis: Plan: As well as highly probable myositis of her calf musclecontinue cefepime and Dapto, pain control. Escalate to BOILERMAKER FITTER (3) Diabetes mellitus type 2, uncontrolled: Plan: Will need to have better discussions about outpatient control once possible. Currently inpatient pharmacy glycemic assistance appreciatedsugars have been overall at goal. (4) PAD (peripheral artery disease): Plan: See aboveangiogram on Tuesday 08/15 as noted Appreciate input from Dr. Lin (5) DVT prophylaxis: Plan: heparin SQ (6) Discharge planning issues: Plan: ongoing inpatient stay, lives at home w/ - hopefully home once above more stable (7) Hyperlipidemia: Plan: atorva currently on hold due to dapto Admission and Anticipated Discharge Date Admission Date: August 09, 2021 Subjective ongoing pain uncontrolled, extensive surgery earlier today. no other meaningful HPI or ROS Review of Systems Review of Systems: All systems reviewed & are unremarkable except as noted in HPI & below Physical Exam Physical Exam: General she is awake and alert somewhat uncomfortable from pain. Breathing unlabored no accessory muscle use good effort. Skin shows no rashes no pallor or icterus. Right foot is dressed, no tracking erythema, calf is stock drier tender no crepitus. Results & Data Results & Data ([facility]) Vital Signs (Past 12 Hours) Vital Signs Temp Pulse Pulse Pulse Resp BP BP 12/31/21 19:01 98.8 F 98 H 18 161/83 H 08/12/21 16:00 98.2 F 97 H 16 171/84 H 08/12/21 13:24 97.5 F L 84 18 137/80 08/12/21 12:30 97.5 F L 82 117/70 08/12/21 12:20 97.5 F L 79 18 108/70 08/12/21 12:10 82 14 114/63 08/12/21 12:00 77 14 129/97 08/12/21 11:50 79 14 134/72 08/12/21 11:44 97.7 F 80 16 101/60 08/12/21 08:56 98.2 F 89 20 146/80 H 08/12/21 07:40 98.2 F 92 H 22 102/71 Pulse Ox 08/12/21 19:01 95 08/12/21 16:00 97 08/12/21 13:24 96 08/12/21 12:30 94 08/12/21 12:20 97 08/12/21 12:10 96 08/12/21 12:00 99 08/12/21 11:50 100 08/12/21 11:44 99 08/12/21 08:56 95 08/12/21 07:40 100 PG Care Time/CCT Total # of Minutes Spent Total Time Spent with Patient: Total time spent is greater than 50% in coordination of care (as documented) at patient's floor/unit and/or counseling patient: Coding Level of Care Code 15624 Subseq Hosp Care Lvl 3 Diagnoses Postoperative wound infection T81.49XA Cellulitis L03.90 Diabetes mellitus type 2, uncontrolled E11.65 PAD (peripheral artery disease) I73.9 DVT prophylaxis Z29.9 Discharge planning issues Z02.9 Hyperlipidemia E78.5 Hyperlipidemia type: unspecified (1) Hyperlipidemia Hyperlipidemia type: unspecified Qualified Code(s): E78.5 - Hyperlipidemia, unspecified
[2021-08-12] MEDS: NORTRIPTYLINE HCL 25 MG CAP PO SCH (20:05)
[2021-08-12] MEDS: rOPINIRole HCL 2 MG TABLET PO SCH (20:05)
[2021-08-12] MEDS: ZOLPIDEM TARTRATE 10 MG TAB PO SCH (20:06)
[2021-08-12] MEDS: INSULIN GLARGINE SOLOSTAR 100 UNITS/ML 3 ML PEN SC SCH (21:07)
[2021-08-13 07:18] LABS: Basophils # (auto) 0.02 K/uL (0-0.2); Basophils % (auto) 0.1 %; Eosinophils # (auto) 0.42 K/uL (0-0.5); Eosinophils % (auto) 2.9 %; Hematocrit (blood only) 31.8 % (37-47); Hemoglobin 10.4 g/dL (12.0-16.0); Immature Granulocytes # (auto) 0.03 K/uL (0.00-0.02); Immature Granulocytes % (auto) 0.2 %; Lymphocytes # (auto) 2.17 K/uL (1.2-3.4); Lymphocytes % (auto) 15.1 %; Mean Corpuscular Hemoglobin 26.7 pg (25-34); Mean Corpuscular Hgb Conc 32.7 g/dL (32-36); Mean Corpuscular Volume 81.5 fL (80-100); Mean Platelet Volume 9.2 fL (7.4-10.4); Monocytes # (auto) 1.39 K/uL (0.11-0.59); Monocytes % (auto) 9.7 %; Neutrophils # (auto) 10.36 K/uL (1.4-6.5); Platelet Count 411 K/uL (130-400); RDW Coefficient of Variation 13.5 % (11.5-14.5); RDW Standard Deviation 40.8 fL (36.4-46.3); White Blood Count 14.39 K/uL (4.8-10.8)
[2021-08-13 08:04] LABS: BUN Creatinine Ratio 13.8 (10-20); Calcium 8.5 mg/dl (8.5-10.1); Creatinine Clr Calc Pharmacy 118.7 ml/min; Est GFR (African American) 127.1 ml/min; Est GFR (Non-African American) 109.6 ml/min; Potassium 4.1 mmol/L (3.5-5.1)
[2021-08-13] MEDS: ACETAMINOPHEN 325 MG TAB PO SCH ×4 (09:30→19:49)
[2021-08-13] MEDS: ASPIRIN 81 MG ECTAB PO SCH (09:31)
[2021-08-13] MEDS: METOPROLOL SUCC 50MG EXT REL TAB PO SCH (09:31)
[2021-08-13] MEDS: INSULIN GLARGINE SOLOSTAR 100 UNITS/ML 3 ML PEN SC SCH (09:42)
[2021-08-13] MEDS: INSULIN ASPART PER UNIT SC SCH ×4 (09:43→20:29)
[2021-08-13] MEDS: CYCLOBENZAPRINE HCL 10 MG TAB PO SCH ×3 (09:46→19:49)
[2021-08-13] MEDS: LORazepam 1 MG TAB PO SCH ×3 (09:46→19:48)
--- NOTE | 2021-08-13 12:16 | Orthopedic Progress Note ---
Date of Service August 13, 2021 Assessment & Plan (1) Osteomyelitis of great toe of right foot: Plan: POD #1 s/p 1. Right great toe amputation, Resection flexor hallucis longus tendon, I&D medial hindfoot, Tenosynovectomy suppurative flexor digitorum liam fernando tendon and tenosynovectomy suppurative posterior tibial tendon will do dressing change tomorrow am, pull some of the packing cont to ice/elevate heel WB wound culture MRSA, on Dapto will cont with IV Abx per primary team Admission and Anticipated Discharge Date Admission Date: August 09, 2021 Subjective POD #1 s/p 1. Right great toe amputation, Resection flexor hallucis longus tendon, I&D medial hindfoot, Tenosynovectomy suppurative flexor digitorum longus tendon and tenosynovectomy suppurative posterior tibial tendon. Review of Systems Constitutional: as per Subjective / HPI; no fever and no chills Cardiovascular: no chest pain, no dyspnea and no orthopnea Gastrointestinal: no nausea and no vomiting Physical Exam Physical Exam: Vital Signs Temp 37.2 C 08/13/21 12:09 Pulse 102 H 08/13/21 12:09 Resp 16 08/13/21 12:09 BP 105/68 08/13/21 12:09 Pulse Ox 99 08/13/21 12:09 Intake & Output 08/12/21 08/13/21 08/13/21 18:59 06:59 18:59 Intake Total 1000 / 1400 400 / 1400 Output Total 5 / 1330 1325 / 1330 Balance 995 / 70 -925 / 70 Weight 67.2 kg Intake: IV Perioperative 1000 / 1000 Oral 400 / 400 Output: Urine 1325 / 1325 Estimated Blood Loss 5 / 5 Musculoskeletal: dressing is clean and dry, calf soft, non-tender Results & Data ([facility]) Vital Signs (Past 12 Hours) Vital Signs Temp Pulse Pulse Resp BP Pulse Ox 08/13/21 12:09 37.2 C 102 H 16 105/68 99 08/13/21 08:19 37.1 C 104 H 18 128/75 93 08/13/21 02:55 37.5 C 107 H 16 121/63 93
[2021-08-13] MEDS: DAPTOmycin 300 MG in SYRINGE 0 ML IV SCH (16:00)
--- NOTE | 2021-08-13 19:15 | Hospitalist Progress Note ---
Date of Service August 13, 2021 Assessment & Plan (1) Postoperative wound infection: Plan: To be clearthis does not represent a complication from the prior surgery, but rather an ongoing infection that has unfortunately been very problematic for this patient for several months. Differential for failure to improve: Residual bone infection -Given MRI showing ongoing osteomyelitis proximal phalanx of great toe, this probably plays a role. Postop now, continue daptomycin. 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 Uncontrolled diabetes -With her most recent A1c of 11.1%, whether from small vessel disease, or hyperglycemic induced immunosuppression, uncontrolled diabetes absolutely is playing a role in the situation. educated more - teaching dyanmic dosing - understanding well. follow for insulin dosing to [facility] overall units/day regimen as outpt. (2) Cellulitis: Plan: As well as highly probable myositis of her calf musclecontinue cefepime and Dapto, pain control. Escalated to BAG SEALER doing better (3) Diabetes mellitus type 2, uncontrolled: Plan: Educating on better outpatient control. She was utilizing a static regimen of 10 units AC. Discussed increasing insulin to match carbohydratesused in analogy of bringing $10 to the grocery store regardless of what she was actually going to buy. This resonated well with her. Anticipate discharge with postprandial glucose monitoring and dynamic dosing. We will also ask case management/art educator if she might be able to get continuous glucose monitor (4) PAD (peripheral artery disease): Plan: See aboveangiogram on Tuesday 08/15 as noted Appreciate input from Dr. Lin (5) DVT prophylaxis: Plan: heparin SQ (6) Discharge planning issues: Plan: ongoing inpatient stay, lives at home w/ - hopefully home once above more stable (7) Hyperlipidemia: Plan: atorvastatin currently on hold due to dapto Admission and Anticipated Discharge Date Admission Date: August 09, 2021 Subjective pain doing better now that she's working the BAG SEALER more. discussed sugars -- takes 40 lantus HS 10 log AC. educated on dynamic dosing - she showed good improvement. Review of Systems Review of Systems: All systems reviewed & are unremarkable except as noted in HPI & below Physical Exam Physical Exam: gen aao pleasant nad heent nc at mmm breathing unlabored no accessory muscles good effort skin nor ashes no pallor or icterus Results & Data Results & Data ([facility]) Vital Signs (Past 12 Hours) Vital Signs Temp Pulse Resp BP Pulse Ox 08/13/21 16:13 98.4 F 85 18 117/71 99 08/13/21 12:09 99.0 F 102 H 16 105/68 99 08/13/21 08:19 98.8 F 104 H 18 128/75 93 PG Care Time/CCT Total # of Minutes Spent Total Time Spent with Patient: Total time spent is greater than 50% in coordination of care (as documented) at patient's floor/unit and/or counseling patient: Coding Level of Care Code 80163 Subseq Hosp Care Lvl 3 Diagnoses Postoperative wound infection T81.49XA Cellulitis L03.90 Diabetes mellitus type 2, uncontrolled E11.65 PAD (peripheral artery disease) I73.9 DVT prophylaxis Z29.9 Discharge planning issues Z02.9 Hyperlipidemia E78.5 Hyperlipidemia type: unspecified (1) Hyperlipidemia Hyperlipidemia type: unspecified Qualified Code(s): E78.5 - Hyperlipidemia, unspecified
[2021-08-13] MEDS: rOPINIRole HCL 2 MG TABLET PO SCH (19:48)
[2021-08-13] MEDS: ZOLPIDEM TARTRATE 10 MG TAB PO SCH (19:49)
[2021-08-13] MEDS: NORTRIPTYLINE HCL 25 MG CAP PO SCH (19:49)
[2021-08-13] MEDS ORDERED: INSULIN GLARGINE SOLOSTAR 100 UNITS/ML 3 ML PEN SC SCH (21:00)
--- NOTE | 2021-08-14 07:48 | Orthopedic Progress Note ---
Date of Service August 14, 2021 Assessment & Plan (1) Osteomyelitis of great toe of right foot: Plan: POD #2 s/p 1. Right great toe amputation, Resection flexor hallucis longus tendon, I&D medial hindfoot, Tenosynovectomy suppurative flexor digitorum liam fernando tendon and tenosynovectomy suppurative posterior tibial tendon dressing changed this am and packing pulled completely. cont to ice/elevate heel WB wound culture MRSA, on Dapto will cont with IV Abx per primary team ortho will sign off at this time, she can f/u with dr ingram team in 12-14 days for suture removal in the office. contact us with any questions or concerns. Admission and Anticipated Discharge Date Admission Date: August 09, 2021 Subjective POD #2 s/p Right great toe amputation, Resection flexor hallucis longus tendon, I&D medial hindfoot, Tenosynovectomy suppurative flexor digitorum longus tendon and tenosynovectomy suppurative posterior Review of Systems Constitutional: no fever and no chills Respiratory: no cough and no dyspnea Cardiovascular: no chest pain Gastrointestinal: no nausea and no vomiting Physical Exam Physical Exam: Vital Signs Temp 36.9 C 08/14/21 03:48 Pulse 89 08/14/21 03:48 Resp 16 08/14/21 03:48 BP 138/73 08/14/21 03:48 Pulse Ox 93 08/14/21 03:48 Intake & Output 08/13/21 08/14/21 08/14/21 18:59 06:59 18:59 Intake Total 680 / 680 Balance 680 / 680 Intake: Oral 680 / 680 Other: # Unmeasured Voi ds 1 Constitutional: WD/WN, vitals as above Musculoskeletal: Right foot: incision base of great toe is clean and dry, no drainage present, skin edges well approximated. remaining packing was pulled this am. medial ankle incision clean and dry, no active drainage. calf SNT Results & Data ([facility]) Vital Signs (Past 12 Hours) Vital Signs Temp Pulse Resp BP Pulse Ox 08/14/21 03:48 36.9 C 89 16 138/73 93 08/13/21 23:26 37.0 C 82 16 107/67 92
[2021-08-14] MEDS: ASPIRIN 81 MG ECTAB PO SCH (08:23)
[2021-08-14] MEDS: ACETAMINOPHEN 325 MG TAB PO SCH ×4 (08:23→21:29)
[2021-08-14] MEDS: CYCLOBENZAPRINE HCL 10 MG TAB PO SCH ×3 (08:23→21:30)
[2021-08-14] MEDS: METOPROLOL SUCC 50MG EXT REL TAB PO SCH (08:23)
[2021-08-14] MEDS: LORazepam 1 MG TAB PO SCH ×3 (08:24→21:29)
[2021-08-14] MEDS: INSULIN ASPART PER UNIT SC SCH ×4 (09:32→21:36)
[2021-08-14] MEDS ORDERED: ERGOCALCIFEROL 50,000 UNITS 1250 MCG CAP PO SCH (10:00)
[2021-08-14] MEDS ORDERED: HYDROmorphone INJ 1 MG/ML SYRINGE IV STA (12:10)
--- NOTE | 2021-08-14 13:49 | Hospitalist Progress Note ---
Date of Service August 14, 2021 Assessment & Plan (1) Postoperative wound infection: Plan: To be clearthis does not represent a complication from the prior surgery, but rather an ongoing infection that has unfortunately been very problematic for this patient for several months. Reasons for failure to improve: Residual bone infection -Given MRI showing ongoing osteomyelitis proximal phalanx of great toe, this probably plays a role. Postop now, continue daptomycin. 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 Uncontrolled diabetes -With her most recent A1c of 11.1%, whether from small vessel disease, or hyperglycemic induced immunosuppression, uncontrolled diabetes absolutely is playing a role in the situation. Continue to educate- teaching dynamic dosing - understanding well. today educated further on the critical importance of diet, emphasizing how much less insulin she is needing for good control in the hospital compared to home. We will definitely need ongoing outpatient follow-up and education even after she gets out of the hospital. *As it relates to discharge planning for this diagnosis, she needs to remain in the hospital for vascular evaluation tomorrow, and any subsequent treatment/stay related to that. Needs to remain in the hospital for pain control until we are able to obtain reasonable pain control on oral regimen (still currently on a Dilaudid ROOF PROMENADE TILE SETTER so we are far from that), and would like infectious disease opinion regarding IV antibiotics (probably ongoing daptomycin) versus p.o. (likely doxycycline or Bactrim), as well as optimal duration. Once these [address], likely should be on to go home (2) Cellulitis: Plan: As well as highly probable myositis of her calf musclecontinue cefepime and Dapto, pain control. Overall doing better with PCAbut with dressing change it kicked up her pain quite a bitadditional Dilaudid IV x1 (3) Diabetes mellitus type 2, uncontrolled: Plan: Educating on better outpatient control. She was utilizing a static regimen of 10 units AC. Discussed increasing insulin to match carbohydratesused in analogy of bringing $10 to the grocery store regardless of what she was actually going to buy. This resonated well with her. Anticipate discharge with postprandial glucose monitoring and dynamic dosing. Askingcase management if she might be able to get continuous glucose monitor. Educated on critical importance of carbohydrate matching (4) PAD (peripheral artery disease): Plan: See aboveangiogram on Tuesday 08/15 as noted Appreciate input from Dr. Lin (5) DVT prophylaxis: Plan: heparin SQ (6) Discharge planning issues: Plan: ongoing inpatient stay, lives at home w/ -see dispo planning under problem #1ultimate goal will be home (7) Hyperlipidemia: Plan: atorvastatin currently on hold due to dapto (8) Vitamin D deficiency: Plan: Incidentally noted on chart review vitamin D level earlier this year was 9.9. Start replacementcontinue as outpatient, recheck levels early to mid November Admission and Anticipated Discharge Date Admission Date: August 09, 2021 Subjective Was doing reasonably well this morning, then when dressing change, her pain got much worse. She has been unable to really bring it in with ROOF PROMENADE TILE SETTER since. Discussed diabetes management furtherreiterated yesterday's discussions with matching insulin to the carbohydrates consumed, discussed further today that she is needing far less insulin in the hospital than she normally takes at home, and showing very good controlwe reached the conclusion that this is because she is eating far less starchy carbohydrates here than she does at home. Use this as a point of education for how critical diet will impact diabetes control. She notes her will have to learn this 2whenever he brought up close for, he also put a lot of candy at the bottom of the bag to try to bring her dayshe notes that she gave it to nursing. Review of Systems Review of Systems: All systems reviewed & are unremarkable except as noted in HPI & below Physical Exam Physical Exam: In general she is awake and alert appears somewhat uncomfortable but otherwise no distress. HEENT normocephalic atraumatic mucous membranes moist. Breathing unlabored no accessory muscle use good effort. Skin shows no rashes, pallor, icterusright foot is dressed but there is no tracking erythema. No focal neuro deficits. Results & Data Results & Data ([facility]) Vital Signs (Past 12 Hours) Vital Signs Temp Pulse Resp BP BP Pulse Ox 08/14/21 08:52 99.0 F 99 H 18 128/78 99 08/14/21 03:48 98.4 F 89 16 138/73 93 PG Care Time/CCT Total # of Minutes Spent Total Time Spent with Patient: Total time spent is greater than 50% in coordination of care (as documented) at patient's floor/unit and/or counseling patient: Coding Level of Care Code 09780 Subseq Hosp Care Lvl 3 Diagnoses Postoperative wound infection T81.49XA Cellulitis L03.90 Diabetes mellitus type 2, uncontrolled E11.65 PAD (peripheral artery disease) I73.9 DVT prophylaxis Z29.9 Discharge planning issues Z02.9 Hyperlipidemia E78.5 Hyperlipidemia type: unspecified Vitamin D deficiency E55.9 (1) Hyperlipidemia Hyperlipidemia type: unspecified Qualified Code(s): E78.5 - Hyperlipidemia, unspecified
--- NOTE | 2021-08-14 15:24 | Pharmacy Report ---
Pharmacy Glycemic Short Note 2 - Date of Service August 14, 2021 - Glycemic Short BSG Results (Last 24 hours): 08/13/21 08/13/21 08/14/21 17:06 20:20 08:31 POC Glucose 82 75 121 H 08/14/21 12:13 POC Glucose 121 H OUTPATIENT ANTIDIABETIC REGIMEN: * Lantus 40 units SQ qHS * Humalog 10 units TID with meals * A1c = 11.1% ASSESSMENT: 08/14/21: * Patient received 24 units of SQ insulin yesterday (18 units Lantus + 6 units Novolog) * Fasting BSG at goal. Will transition to qHS dosing since this is how patient takes basal insulin at home 08/12/21 * Patient's BSGs yesterday were 50-806-64-162 mg/dL. * Fasting today is 142 mg/dL. Patient was NPO this morning for great toe amputation. * Patient received 14 units of insulin yesterday (10 units of basal and 4 units of bolus). * Appears no steroids pulled during surgery. * Will give 10 units of Lantus tonight for total basal dose of 15 units. * Continue Novolog Background * Mariana is s 56 yr old T2DM admitted with right foot postoperative wound infection * Orthopedics consulted for debridement. Patient was made NPO at midnight. * During previous admission this month, the patient required significantly less insulin (20-30 units/day) compared to home dosing. Based on this data, basal insulin was decreased ~35%. Will continue to titrate based on additional BSG data. PLAN FOR INPATIENT GLYCEMIC CONTROL: * Hold outpatient oral diabetes medications * Basal insulin * Lantus 15-18 units SQ HS * Bolus insulin - loosen * NovoLog per scale ACHS or Q6hrs while NPO * Goal Range: Low 100 mg/dL - High 140 mg/dL * Correction Factor: 30 mg/dL/unit * Nutritional / Prandial insulin per carb ratio of 1 unit per 12 grams CHO consumed PLAN FOR DISCHARGE: * TBD
[2021-08-14] MEDS: DAPTOmycin 300 MG in SYRINGE 0 ML IV SCH (16:50)
[2021-08-14] MEDS: ZOLPIDEM TARTRATE 10 MG TAB PO SCH (21:29)
[2021-08-14] MEDS: rOPINIRole HCL 2 MG TABLET PO SCH (21:30)
[2021-08-14] MEDS: INSULIN GLARGINE SOLOSTAR 100 UNITS/ML 3 ML PEN SC SCH (21:32)
[2021-08-14] MEDS: NORTRIPTYLINE HCL 25 MG CAP PO SCH (22:05)
[2021-08-15] MEDS: HYDROmorphone PCA 30 MG/30 ML IV PRN (06:18)
[2021-08-15 07:23] LABS: Basophils # (auto) 0.04 K/uL (0-0.2); Basophils % (auto) 0.4 %; Eosinophils # (auto) 0.44 K/uL (0-0.5); Eosinophils % (auto) 4.7 %; Hematocrit (blood only) 32.2 % (37-47); Hemoglobin 10.3 g/dL (12.0-16.0); Immature Granulocytes # (auto) 0.02 K/uL (0.00-0.02); Immature Granulocytes % (auto) 0.2 %; Lymphocytes # (auto) 3.09 K/uL (1.2-3.4); Lymphocytes % (auto) 33.3 %; Mean Corpuscular Hemoglobin 26.6 pg (25-34); Mean Corpuscular Volume 83.2 fL (80-100); Mean Platelet Volume 9.1 fL (7.4-10.4); Monocytes # (auto) 0.98 K/uL (0.11-0.59); Monocytes % (auto) 10.5 %; Neutrophils # (auto) 4.72 K/uL (1.4-6.5); Neutrophils % (auto) 50.9 %; Platelet Count 468 K/uL (130-400); RDW Coefficient of Variation 13.7 % (11.5-14.5); RDW Standard Deviation 41.8 fL (36.4-46.3); Red Blood Count 3.87 M/uL (4.2-5.4); White Blood Count 9.29 K/uL (4.8-10.8)
[2021-08-15] MEDS: ACETAMINOPHEN 325 MG TAB PO SCH ×4 (07:51→19:53)
[2021-08-15] MEDS: CHOLECALCIFEROL 5,000 UNITS 125 MCG TAB PO SCH (07:52)
[2021-08-15] MEDS: ASPIRIN 81 MG ECTAB PO SCH (07:52)
[2021-08-15] MEDS: CYCLOBENZAPRINE HCL 10 MG TAB PO SCH ×3 (07:53→19:54)
[2021-08-15] MEDS: METOPROLOL SUCC 50MG EXT REL TAB PO SCH (07:53)
[2021-08-15] MEDS: LORazepam 1 MG TAB PO SCH ×3 (07:59→20:22)
--- NOTE | 2021-08-15 08:15 | Hospitalist Progress Note ---
Date of Service August 15, 2021 Assessment & Plan (1) Osteomyelitis of great toe of right foot: (2) MRSA (methicillin resistant staph aureus) culture positive: (3) PAD (peripheral artery disease): (4) Diabetes mellitus type 2, uncontrolled: (5) Peripheral neuropathy: (6) Anemia: (7) Hyponatremia: (8) DVT prophylaxis: Plan: 1,2 1. Right great toe amputation, Resection flexor hallucis longus tendon, I&D medial hindfoot, Tenosynovectomy suppurative flexor digitorum longus tendon and tenosynovectomy suppurative posterior tibial tendon dressing changed this am and packing pulled completely. cont to ice/elevate heel WB wound culture MRSA, on Dapto will cont with IV Abx per primary team ortho will sign off at this time, she can f/u with dr ingram team in 12-14 days for suture removal in the office. contact us with any questions or concerns. recommendations from Orthopedics as noted above from August 14. See Infectious Disease recommendations for long-term treatment will further discuss with Orthopedics to determine oral versus IV antibiotics and duration. Pain control stable discussed importance of reducing pain medications, continue KITCHEN LEAD pump Hydromorphone 12.8 mg in last 24 hours per nursing, see nursing notes Change in KITCHEN LEAD dosing reduceto 0.25 mg from 0.4 mg continue to monitor considerations for transition to oral medications Pain control likely worsened with patient's known history of peripheral neuropathy. 3. patient underwent angiogram to evaluate peripheral artery disease See vascular Medicine progress notes today mild non obstructive PA D reported 4. uncontrolled diabetes Continue education Continue dietary control Continue pharmacy per protocol 5. improvement of diabetes long-term Continue with current medications may want to consider changed toadjunctive medications for pain control Currently taking nortriptyline Will further review in the a.m. after change in medication dosing with KITCHEN LEAD 6. Anemia stable during hospitalization no reported symptoms Improving since procedure and osteomyelitis treatment 7. hyponatremia resolving no additional intervention 8. DVT prophylaxis Admission and Anticipated Discharge Date Admission Date: August 09, 2021 Subjective no significant changes, continues to have high levels of pain KITCHEN LEAD pump with hydromorphone has been beneficial, some difficulties with sleep overnight related to hospitalization noise etc. Schedule today for evaluation by Dr. Lin for potential underlying vascular disease ID consult placed for potential long-term treatment for osteomyelitis No reported difficulties with abdominal pain nausea vomiting was able to eat her breakfast with no difficulty Looking forward to getting back home, followed by Orthopedics and PCP for uncontrolled diabetes No reported hypoglycemia Review of Systems Constitutional: no fever and no chills Respiratory: no cough, no chest congestion, no dyspnea and no wheezing Cardiovascular: no chest pain, no palpitations and no edema Gastrointestinal: no abdominal pain, no heartburn, no nausea, no vomiting and no change in bowel habits Neurologic: + gait abnormality; no falls and no headache(s) Physical Exam Physical Exam: Constitutional: WD/WN, vitals as above CV: RRR, no murmur, no edema Abdomen: normal bowel sounds, soft, nontender, no hepatosplenomegaly Neurologic: abnormality post surgery followed closely with Physical therapy, walker Results & Data Results & Data ([facility]) Vital Signs (Past 12 Hours) Vital Signs Temp Pulse Resp BP BP Pulse Ox 08/15/21 07:28 36.6 C 87 18 144/82 H 100 08/15/21 02:49 36.6 C 84 16 108/74 95 08/15/21 02:29 36.5 C 80 14 119/74 97 08/14/21 23:01 36.5 C 85 16 123/76 94 Laboratory Results Laboratory Results - last 24 hr 08/14/21 08/15/21 08/15/21 20:38 06:58 06:58 WBC 9.29 RBC 3.87 L Hgb 10.3 L Hct 32.2 L MCV 83.2 MCH 26.6 MCHC 32.0 RDW Std Deviation 41.8 RDW Coeff of [place] 13.7 Plt Count 468 H MPV 9.1 Immature Gran % (Auto) 0.2 Neut % (Auto) 50.9 Lymph % (Auto) 33.3 [place] % (Auto) 10.5 Eos % (Auto) 4.7 Baso % (Auto) 0.4 Neut # (Auto) 4.72 Lymph # (Auto) 3.09 [place] # (Auto) 0.98 H Eos # (Auto) 0.44 Baso # (Auto) 0.04 Immature Gran # (Auto) 0.02 Sodium 134 L Potassium 3.9 Chloride 100 Carbon Dioxide 29 Anion Gap 5.0 BUN 11 Creatinine 0.52 L Est Cr Clr Drug Dosing 107.3 Est GFR ( Amer) 122.9 Est GFR (Non-Af Amer) 106.1 BUN/Creatinine Ratio 21.4 H Glucose 161 H POC Glucose 186 H Calcium 9.4 08/15/21 08/15/21 08/15/21 08:15 12:06 16:39 WBC RBC Hgb Hct MCV MCH MCHC RDW Std Deviation RDW Coeff of [place] Plt Count MPV Immature Gran % (Auto) Neut % (Auto) Lymph % (Auto) [place] % (Auto) Eos % (Auto) Baso % (Auto) Neut # (Auto) Lymph # (Auto) [place] # (Auto) Eos # (Auto) Baso # (Auto) Immature Gran # (Auto) Sodium Potassium Chloride Carbon Dioxide Anion Gap BUN Creatinine Est Cr Clr Drug Dosing Est GFR ( Amer) Est GFR (Non-Af Amer) BUN/Creatinine Ratio Glucose POC Glucose 147 H 106 H 118 H Calcium PG Care Time/CCT Total # of Minutes Spent Total Time Spent with Patient: Total time spent is greater than 50% in coordination of care (as documented) at patient's floor/unit and/or counseling patient: Coding Level of Care Code 75709 Subseq Hosp Care Lvl 2 Diagnoses Osteomyelitis of great toe of right foot M86.9 PAD (peripheral artery disease) I73.9 Diabetes mellitus type 2, uncontrolled E11.65 DVT prophylaxis Z29.9 Peripheral neuropathy G62.9 Anemia D64.9 Hyponatremia E87.1 MRSA (methicillin resistant staph aureus) culture positive Z22.322
[2021-08-15] MEDS: INSULIN ASPART PER UNIT SC SCH ×4 (08:32→21:00)
[2021-08-15 09:08] LABS: BUN Creatinine Ratio 21.4 (10-20); Calcium 9.4 mg/dl (8.5-10.1); Creatinine Clr Calc Pharmacy 107.3 ml/min; Est GFR (African American) 122.9 ml/min; Est GFR (Non-African American) 106.1 ml/min; Potassium 3.9 mmol/L (3.5-5.1)
--- NOTE | 2021-08-15 09:42 | Vascular Medicine ProgressNote ---
Date of Service August 15, 2021 Assessment & Plan (1) Osteomyelitis of great toe of right foot: Plan: 2. PAD 3.Insulin-dependent diabetes 4. Nonobstructive coronary disease 5. History of tobacco use 6. Dyslipidemia POD 3 from right great toe amputation/hindfoot abscess I&D. Afebrile, white count downtrending, pain control improving. Plan for lower extremity angiogram today to rule out significant PAD impacting wound healing. Procedure planned for early this afternoon. Please keep n.p.o. until then. Admission and Anticipated Discharge Date Admission Date: August 09, 2021 Subjective Pain better controlled today. Still using STRANDING SUPERVISOR. No other new complaints. Review of Systems Review of Systems: All systems reviewed & are unremarkable except as noted in HPI & below Physical Exam Physical Exam: General: No acute distress HEENT: Head is normal. Sclerae anicteric. Lungs: Clear to auscultation bilaterally Cardiac: Regular rate and rhythm. S1-S2 normal. No appreciable murmur, gallop or rub. Extremities/vascular: --Well perfused. No peripheral edema. --Radial 2+ bilaterally --Femoral 2+ bilaterally --2+ DP pulse on right --Right surgical site remains dressed, no surrounding erythema Results & Data ([facility]) Vital Signs (Past 12 Hours) Vital Signs Temp Pulse Resp BP BP Pulse Ox 08/15/21 07:28 97.9 F 87 18 144/82 H 100 08/15/21 02:49 97.9 F 84 16 108/74 95 08/15/21 02:29 97.7 F 80 14 119/74 97 08/14/21 23:01 97.7 F 85 16 123/76 94 PG Care Time/CCT Total # of Minutes Spent Total Time Spent with Patient: Total time spent is greater than 50% in coordination of care (as documented) at patient's floor/unit and/or counseling patient: Coding Level of Care Code 18483 Subseq Obs Care Lvl 3 Diagnoses Osteomyelitis of great toe of right foot M86.9
[2021-08-15] MEDS ORDERED: niCARdipine HCL INJ 2.5 MG/ML 10 ML AMP ONE (12:45)
[2021-08-15] MEDS ORDERED: MIDAZOLAM HCL 1 MG/ML 2ML VIAL ONE (12:45)
[2021-08-15] MEDS ORDERED: HEPARIN (PORCINE) 1000 UNIT/ML 10 ML (CATH LAB USE ONLY) ONE (12:45)
[2021-08-15] MEDS ORDERED: fentaNYL citrate 100 MCG/2 ML VIAL ONE (12:45)
[2021-08-15] MEDS ORDERED: NITROGLYCERIN/D5W 100MCG/ML 20ML SYR ONE (12:45)
--- NOTE | 2021-08-15 14:22 | Pre Anesthesia Assessment ---
Date of Service August 15, 2021 Pre Sedation Assessment Vital Signs Temp Pulse Resp BP BP Pulse Ox 08/15/21 13:02 75 96 08/15/21 07:28 97.9 F 87 18 144/82 H 100 08/15/21 02:49 97.9 F 84 16 108/74 95 08/15/21 02:29 97.7 F 80 14 119/74 97 08/14/21 23:01 97.7 F 85 16 123/76 94 08/14/21 19:14 97.9 F 81 18 115/69 94 08/14/21 16:29 98.1 F 81 18 128/77 97 Cardiovascular RRR, no murmur, no edema Respiratory normal respiratory effort, lungs clear to auscultation Pre-Sedation Airway Assessment Smoking Status: Former smoker Hx Sleep Apnea: No Hx Difficult Intubation: No Short, Thick Neck: No Thyromental Distance: > or= 3.5 Finger Breadths Oral Cavity: + WNL Mallampati Class: III ASA: ASA3 NPO Status Date of Last Intake of Fluids: 08/15/21 Time of Last Intake of Fluids: 08:00 Date of Last Intake of Solid Food: 08/15/21 Time of Last Intake of Solid Foods: 08:00 Procedure Planning Contraindications for Sedation: none Current Medications Reviewed: Yes Notes The planned sedation has been discussed with the patient. Informed Consent was obtained. I have identified the patient, determined the appropriateness of sedation and have assessed the patient immediately prior to the procedure. All medicine(s) and interventions are by my order.
--- NOTE | 2021-08-15 14:23 | Post Anesthesia Assessment ---
Date of Service August 15, 2021 Post Sedation Assessment Vital Signs Temp Pulse Resp BP BP Pulse Ox 08/15/21 13:02 75 96 08/15/21 07:28 97.9 F 87 18 144/82 H 100 08/15/21 02:49 97.9 F 84 16 108/74 95 08/15/21 02:29 97.7 F 80 14 119/74 97 08/14/21 23:01 97.7 F 85 16 123/76 94 08/14/21 19:14 97.9 F 81 18 115/69 94 08/14/21 16:29 98.1 F 81 18 128/77 97 Recovery Score Activity: Moves 4 extremities Respiration: Deep Breath/Cough Circulation: +/-20% PreAnes Value Consciousness: Fully Awake Oxygen Saturation: O2 needed for >90% Post Anesthesia Score: 10 Discharge Sedation Level of Care: Fast Track Phase II Post Sedation Plan On clinical assessment, the patient appears to have tolerated the sedation without complications. Patient is recovering as anticipated. Patient will continue to be monitored by nursing and may be discharged when sedation discharge criteria are met per below protocol. Upon Completions of procedure up to 15 minutes continue every 5 minute vital signs and the P.A.R. score; then discharge to a Phase I or Fast Track to Phase II per the following guidelines: * Discharge Patient to appropriate Phase II area if PAR is 8 or greater or return to pre- procedure baseline. The post - procedure orders will be as directed. * If PAR score is less than 8 or not return to pre-procedure baseline then patient will follow Phase I monitoring till PAR is reached for Phase II. The Phase I may be done in procedure room or may call to secure a Phase I area. * If naloxone or flumazenil are used for reversal, hold in Phase I for continued monitoring from when last reversal dose was given for a minimum of 60 minutes or longer pending the nurse and/or physician discretion of patient condition before discharge to Phase II. Please call the Sedation Physician to re-evaluate and complete post-note for discharge to Phase II area. Do NOT discharge from procedure sedation or Phase 1 until post- sedation evaluation note is complete by procedure /sedation MD Sedation Discharge Instructions to be given to the patient at discharge to home.
--- NOTE | 2021-08-15 14:45 | Endovascular Procedure Note ---
[facility] Endovascular Procedure Rpt Pre & Post Diagnosis Operation Date: 08/12/21 09:25 Pre-Op Diagnosis: Osteomyelitis right great toe Post-Op Diagnosis: Osteomyelitis right great toe Operation Date: 08/15/21 11:00 Mild non-obstructive PAD I identified the patient and participated in the time-out.: Yes Procedure Operation Date: 08/12/21 09:25 Actual Procedures p Right Great Toe Amputation(Right) - Akhil Montaño DO Operation Date: 08/15/21 11:00 Actual Procedures p Angio Extremity Unilateral - Adonis Lin MD Surgeon Harvinder Lin MD Behavioral Psychologist None Estimated Blood Loss 5 Findings See Below Abdominal aorta--no significant aneurysmal or stenotic disease. Bilateral renal arteries widely patent. Right lower extremity-- -Common iliac, external iliac, internal iliac widely patent -WHEAT SHIPPER, profunda widely patent -SFA 30% proximal disease -Popliteal no significant disease -KERLINE 40 to 50% proximal stenosis TPT luminal irregularities -SPRAY OPERATOR mild diffuse mid segment disease, peroneal 50% distal disease -DPA widely patent, medial/lateral plantar arteries widely patent with intact pedal arch. Normal angiographic wound blush Left lower extremity-- -Common iliac, internal iliac widely patent. External iliac mild diffuse disease -WHEAT SHIPPER, profunda widely patent -SFA mild diffuse disease mid segment disease up to 30% -Popliteal widely patent -KERLINE patent proximally TPT patent proximally Anesthesia Type RN Sedation Radiation Exposure (mGv) Radiation (mGy): 242 Contrast Contrast: 55 Complications none Disposition Accompanied Patient To Recovery: Yes Disposition: Closet Builder Holding Description of Procedure Left radial artery access obtained, short 5Fr sheath placed Abdominal aortogram with pigtail Selective angiography with multipurpose catheter into external iliac arteries Contrast used: 55 Moderate sedation: [id number] Access closure: TR band Summary: 1. Right lower extremity --30% proximal SFA, 40 to 50% proximal KERLINE. Brisk three-vessel runoff to the foot with intact pedal arch and normal angiographic wound blush. 2. Left lower extremity --mild external iliac, diffuse 30% mid SFA. Recommendations: Patient with brisk inline flow to right lower extremity wound bed. No significant arterial disease impacting wound healing. Continue ASCVD risk factor modification I attest to the content of the Intraoperative Record and any orders documented therein. Any exceptions are noted below. Vascular Charges Angiography/Venography Procedure 1: Angiography/Venography charges: [id number] Aortography, abd + b/l iliofem LE, catheter, radiological S&I Procedure 2: Angiography/Venography charges: [id number] Initial 2nd order abd, pelvic or LE branch Additional Services Procedure 1: Additional Services Charges: 45709 Moderate sedation initial 15 min
[2021-08-15] MEDS ORDERED: SODIUM CHLORIDE 0.9% 500 ML IV SCH (15:00)
[2021-08-15] MEDS: SODIUM CHLORIDE 0.9% 1000ML 1,000 ML IV SCH ×2 (17:19→21:55)
[2021-08-15] MEDS: DAPTOmycin 300 MG in SYRINGE 0 ML IV SCH (19:53)
[2021-08-15] MEDS: ZOLPIDEM TARTRATE 10 MG TAB PO SCH (20:22)
[2021-08-15] MEDS: rOPINIRole HCL 2 MG TABLET PO SCH (20:55)
[2021-08-15] MEDS: NORTRIPTYLINE HCL 25 MG CAP PO SCH (20:55)
[2021-08-15] MEDS: INSULIN GLARGINE SOLOSTAR 100 UNITS/ML 3 ML PEN SC SCH (21:25)
[2021-08-16] MEDS ORDERED: HYDROmorphone INJ 1 MG/ML SYRINGE IV STA (00:52)
[2021-08-16] MEDS ORDERED: GABAPENTIN 300 MG CAP PO STA (03:15)
[2021-08-16] MEDS ORDERED: HYDROmorphone INJ 2 MG/ML SYR/VIAL IV STA (03:31)
[2021-08-16] MEDS: HYDROmorphone PCA 30 MG/30 ML IV PRN (03:54)
--- NOTE | 2021-08-16 07:30 | Hospitalist Progress Note ---
Date of Service August 16, 2021 Assessment & Plan (1) Osteomyelitis of great toe of right foot: (2) MRSA (methicillin resistant staph aureus) culture positive: (3) PAD (peripheral artery disease): (4) Diabetes mellitus type 2, uncontrolled: (5) Peripheral neuropathy: (6) Anemia: (7) Hyponatremia: (8) DVT prophylaxis: Plan: 1,2 1. Right great toe amputation, Resection flexor hallucis longus tendon, I&D medial hindfoot, Tenosynovectomy suppurative flexor digitorum longus tendon and tenosynovectomy suppurative posterior tibial tendon POD 4, (DOS 08/12/21) dressing changed this am and packing pulled completely. cont to ice/elevate heel WB wound culture MRSA, on Dapto will cont with IV Abx per primary team ortho will sign off at this time, she can f/u with dr ingram team in 12-14 days for suture removal in the office. contact us with any questions or concerns. recommendations from Orthopedics as noted above from August 14. See Infectious Disease recommendations for long-term treatment will further discuss with Orthopedics to determine oral versus IV antibiotics and duration. After discussion with ortho and ID recommendations, plan on total 14 day tx with 7 day IV ab and transition to po. OM complete removal, Would like to continue IV abx with extent of abscess at surgery. ABX Day#4, Daptomycin Pain management consult placed due to help in transition to Po medications Initermittent dosing continued however started on continuous overnight due to por pain control. IV was replaced this AM which may have contributed to control concerns. Continue current settings 3. patient underwent angiogram to evaluate peripheral artery disease See vascular Medicine progress notes today mild non obstructive PA D reported 4. uncontrolled diabetes Continue education Continue dietary control Continue pharmacy per protocol Continue insulin protocol BS [id number] 5. Peripheral Neuropathy improvement of diabetes long-term Continue with current medications may want to consider changed adjunctive medications for pain control Currently taking nortriptyline Likely contributing factor to current pain symptoms. 6. Anemia stable during hospitalization no reported symptoms Improving since procedure and osteomyelitis treatment 7. hyponatremia resolved 8. 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 Very tired with overnight pain control and activity in ICU. mild nausea with pain otherwise no issues with po intake. Agreeable to Pain management evaluation. Review of Systems Review of Systems: uncomfortable Constitutional: no fever and no chills Respiratory: no cough, no chest congestion, no dyspnea and no wheezing Cardiovascular: no chest pain, no palpitations and no edema Gastrointestinal: no abdominal pain, no heartburn, no nausea, no vomiting and no change in bowel habits Neurologic: no gait abnormality, no falls and no headache(s) Physical Exam Physical Exam: Constitutional: WD/WN, vitals as above Respiratory: Effort normal, CTA B/L CV: RRR, no murmur, no edema Abdomen: normal bowel sounds, soft, nontender, no hepatosplenomegaly Neurologic: groosly intact, with known peripheral neuropathy use of walker Results & Data Results & Data ([facility]) Vital Signs (Past 12 Hours) Vital Signs Temp Pulse Resp BP BP Pulse Ox 08/16/21 05:33 132/69 08/16/21 05:30 84 21 96 08/16/21 05:00 83 12 93 08/16/21 04:30 85 95 08/16/21 04:08 93 H 10 L 184/86 H 08/16/21 03:30 104 H 31 H 89 L 08/16/21 03:00 96 H 18 93 08/16/21 02:00 81 18 94 08/16/21 01:00 87 21 90 08/16/21 00:44 91 H 13 161/90 H 97 08/16/21 00:00 100 H 16 100 08/15/21 23:20 102 H 19 181/86 H 95 08/15/21 23:19 104 H 17 98 08/15/21 22:04 94 08/15/21 21:30 80 36 H 95 08/15/21 21:00 102 H 21 96 08/15/21 20:30 81 18 95 08/15/21 20:01 81 19 153/92 H 97 08/15/21 20:00 82 14 98 08/15/21 19:31 36.8 C 08/15/21 19:30 81 13 98 Laboratory Results Laboratory Results - last 24 hr 08/15/21 08/15/21 08/15/21 12:06 16:39 20:59 WBC RBC Hgb Hct MCV MCH MCHC RDW Std Deviation RDW Coeff of Maria Del Carmen Plt Count MPV Immature Gran % (Auto) Neut % (Auto) Lymph % (Auto) Bland % (Auto) Eos % (Auto) Baso % (Auto) Neut # (Auto) Lymph # (Auto) Bland # (Auto) Eos # (Auto) Baso # (Auto) Immature Gran # (Auto) Sodium Potassium Chloride Carbon Dioxide Anion Gap BUN Creatinine Est Cr Clr Drug Dosing Est GFR ( Amer) Est GFR (Non-Af Amer) BUN/Creatinine Ratio Glucose POC Glucose 106 H 118 H 124 H Calcium 08/16/21 08/16/21 08/16/21 07:13 07:13 07:29 WBC 7.06 RBC 3.98 L Hgb 10.7 L Hct 33.2 L MCV 83.4 MCH 26.9 MCHC 32.2 RDW Std Deviation 41.1 RDW Coeff of Maria Del Carmen 13.5 Plt Count 519 H MPV 9.2 Immature Gran % (Auto) 0.1 Neut % (Auto) 52.7 Lymph % (Auto) 30.7 Bland % (Auto) 10.1 Eos % (Auto) 6.1 Baso % (Auto) 0.3 Neut # (Auto) 3.72 Lymph # (Auto) 2.17 Bland # (Auto) 0.71 H Eos # (Auto) 0.43 Baso # (Auto) 0.02 Immature Gran # (Auto) 0.01 Sodium 138 Potassium 4.1 Chloride 103 Carbon Dioxide 32 Anion Gap 3.0 BUN 6 L D Creatinine 0.38 L Est Cr Clr Drug Dosing 146.8 Est GFR ( Amer) 136.3 Est GFR (Non-Af Amer) 117.6 BUN/Creatinine Ratio 16.2 Glucose 82 POC Glucose 87 Calcium 9.4 PG Care Time/CCT Total # of Minutes Spent Total Time Spent with Patient: Total time spent is greater than 50% in coordination of care (as documented) at patient's floor/unit and/or counseling patient: Coding Level of Care Code 56633 Subseq Hosp Care Lvl 2 Diagnoses Osteomyelitis of great toe of right foot M86.9 MRSA (methicillin resistant staph aureus) culture positive Z22.322 PAD (peripheral artery disease) I73.9 Diabetes mellitus type 2, uncontrolled E11.65 Peripheral neuropathy G62.9 Anemia D64.9 Hyponatremia E87.1 DVT prophylaxis Z29.9
[2021-08-16] MEDS: INSULIN ASPART PER UNIT SC SCH ×4 (07:51→21:22)
[2021-08-16 08:30] LABS: Basophils # (auto) 0.02 K/uL (0-0.2); Basophils % (auto) 0.3 %; Eosinophils # (auto) 0.43 K/uL (0-0.5); Eosinophils % (auto) 6.1 %; Hematocrit (blood only) 33.2 % (37-47); Hemoglobin 10.7 g/dL (12.0-16.0); Immature Granulocytes # (auto) 0.01 K/uL (0.00-0.02); Immature Granulocytes % (auto) 0.1 %; Lymphocytes # (auto) 2.17 K/uL (1.2-3.4); Lymphocytes % (auto) 30.7 %; Mean Corpuscular Hemoglobin 26.9 pg (25-34); Mean Corpuscular Hgb Conc 32.2 g/dL (32-36); Mean Corpuscular Volume 83.4 fL (80-100); Mean Platelet Volume 9.2 fL (7.4-10.4); Monocytes # (auto) 0.71 K/uL (0.11-0.59); Monocytes % (auto) 10.1 %; Neutrophils # (auto) 3.72 K/uL (1.4-6.5); Neutrophils % (auto) 52.7 %; Platelet Count 519 K/uL (130-400); RDW Coefficient of Variation 13.5 % (11.5-14.5); RDW Standard Deviation 41.1 fL (36.4-46.3); Red Blood Count 3.98 M/uL (4.2-5.4); White Blood Count 7.06 K/uL (4.8-10.8)
[2021-08-16 08:51] LABS: BUN Creatinine Ratio 16.2 (10-20); Calcium 9.4 mg/dl (8.5-10.1); Creatinine Clr Calc Pharmacy 146.8 ml/min; Est GFR (African American) 136.3 ml/min; Est GFR (Non-African American) 117.6 ml/min; Potassium 4.1 mmol/L (3.5-5.1)
--- NOTE | 2021-08-16 09:57 | Vascular Medicine ProgressNote ---
Date of Service August 16, 2021 Assessment & Plan (1) Osteomyelitis of great toe of right foot: Plan: 2. PAD 3.Insulin-dependent diabetes 4. Nonobstructive coronary disease 5. History of tobacco use 6. Dyslipidemia POD 4 from right great toe amputation/hindfoot abscess I&D. Afebrile, white count downtrending. Angiogram yesterday showed brisk inline flow to wound bed with no hemodynamically significant obstructions. PAD not impacting wound healing. No apparent access site complications post procedure yesterday. Vascular medicine will sign off. Continue ASCVD risk factor modification. Admission and Anticipated Discharge Date Admission Date: August 09, 2021 Subjective Frustrated with continued pain in right leg. No significant discomfort at left radial artery access site. Review of Systems Review of Systems: All systems reviewed & are unremarkable except as noted in HPI & below Physical Exam Physical Exam: General: No acute distress HEENT: Head is normal. Sclerae anicteric. Extremities/vascular: --Left radial artery access site with no ecchymosis, hematoma. Distal pulse and sensation intact. --Right surgical site remains dressed, no surrounding erythema Results & Data ([facility]) Vital Signs (Past 12 Hours) Vital Signs Temp Pulse Pulse Resp BP BP Pulse Ox 08/16/21 07:59 97.9 F 97 H 20 166/104 H 96 08/16/21 05:33 132/69 08/16/21 05:30 84 21 96 08/16/21 05:00 83 12 93 08/16/21 04:30 85 95 08/16/21 04:08 93 H 10 L 184/86 H 08/16/21 03:30 104 H 31 H 89 L 08/16/21 03:00 96 H 18 93 08/16/21 02:00 81 18 94 08/16/21 01:00 87 21 90 08/16/21 00:44 91 H 13 161/90 H 97 08/16/21 00:00 100 H 16 100 08/15/21 23:20 102 H 19 181/86 H 95 08/15/21 23:19 104 H 17 98 08/15/21 22:04 94 PG Care Time/CCT Total # of Minutes Spent Total Time Spent with Patient: Total time spent is greater than 50% in coordination of care (as documented) at patient's floor/unit and/or counseling patient: Coding Level of Care Code 52277 Subseq Hosp Care Lvl 2 Diagnoses Osteomyelitis of great toe of right foot M86.9
[2021-08-16] MEDS: CYCLOBENZAPRINE HCL 10 MG TAB PO SCH ×3 (10:24→21:30)
[2021-08-16] MEDS: CHOLECALCIFEROL 5,000 UNITS 125 MCG TAB PO SCH (10:24)
[2021-08-16] MEDS: ASPIRIN 81 MG ECTAB PO SCH (10:24)
[2021-08-16] MEDS: ACETAMINOPHEN 325 MG TAB PO SCH ×4 (10:24→21:27)
[2021-08-16] MEDS: METOPROLOL SUCC 50MG EXT REL TAB PO SCH (10:24)
[2021-08-16] MEDS: LORazepam 1 MG TAB PO SCH ×3 (10:25→21:31)
--- NOTE | 2021-08-16 11:01 | Pharmacy Report ---
Pharmacy Glycemic Short Note 2 - Date of Service August 16, 2021 - Glycemic Short BSG Results (Last 24 hours): 08/15/21 08/15/21 08/15/21 12:06 16:39 20:59 Glucose POC Glucose 106 H 118 H 124 H 08/16/21 08/16/21 07:13 07:29 Glucose 82 POC Glucose 87 OUTPATIENT ANTIDIABETIC REGIMEN: * Lantus 40 units SQ qHS * Humalog 10 units TID with meals * A1c = 11.1% ASSESSMENT: 08/16/21: * 21 units SQ insulin given over last 24 hrs while partially tolerating diet * BSGs have been at goal * Fasting BSG 82-87 this AM w/ 15 units Lantus on board, will reduce dose given BSGs running 120's or less over last 24 hrs * Post prandial BSGs well controlled w/ current Novolog parameters 08/14/21: * Patient received 24 units of SQ insulin yesterday (18 units Lantus + 6 units Novolog) * Fasting BSG at goal. Will transition to qHS dosing since this is how patient takes basal insulin at home 08/12/21 * Patient's BSGs yesterday were [id number] mg/dL. * Fasting today is 142 mg/dL. Patient was NPO this morning for great toe amputation. * Patient received 14 units of insulin yesterday (10 units of basal and 4 units of bolus). * Appears no steroids pulled during surgery. * Will give 10 units of Lantus tonight for total basal dose of 15 units. * Continue Novolog Background * Mariana is s 56 yr old T2DM admitted with right foot postoperative wound infection * Orthopedics consulted for debridement. Patient was made NPO at midnight. * During previous admission this month, the patient required significantly less insulin (20-30 units/day) compared to home dosing. Based on this data, basal insulin was decreased ~35%. Will continue to titrate based on additional BSG data. PLAN FOR INPATIENT GLYCEMIC CONTROL: * Hold outpatient oral diabetes medications * Basal insulin - decrease * Lantus 10-15 units SQ HS (see eMAR for scale) * Bolus insulin - no change * NovoLog per scale ACHS or Q6hrs while NPO * Goal Range: Low 100 mg/dL - High 140 mg/dL * Correction Factor: 30 mg/dL/unit * Nutritional / Prandial insulin per carb ratio of 1 unit per 12 grams CHO consumed PLAN FOR DISCHARGE: * TBD
--- NOTE | 2021-08-16 14:23 | Communication Note ---
Date of Service: August 16, [address] [facility] for a wound check since signing off. Pt was in surgical ICU after Angio per Dr Lin but is now on 3E. When I initially saw her in the ICU, she was up ambulating in the room and cleaning herself up. I came back to do dressing change after she was done but she had been transferred to 3E. Pt currently in bed awake, alert. States they are trying to get her pain under control. Currently she does not appear to be in a lot of pain. Pt's dressing is off. Hindfoot wound approximated. Dark erythema surrounds the incision site. No drainage. Right 1st toe amp site approximated. Mild serous drainage. Mild maceration at central portion of wound. No foul odor. Mild erythema. Wounds redressed with adaptic, 4x4's, kelix, ayad wrap. Continue daily dressing changes. Discussed antibx with Med Service this AM.
[2021-08-16] MEDS: DAPTOmycin 300 MG in SYRINGE 0 ML IV SCH (17:04)
[2021-08-16] MEDS: INSULIN GLARGINE SOLOSTAR 100 UNITS/ML 3 ML PEN SC SCH (21:23)
[2021-08-16] MEDS: NORTRIPTYLINE HCL 25 MG CAP PO SCH (21:31)
[2021-08-16] MEDS: ZOLPIDEM TARTRATE 10 MG TAB PO SCH (21:32)
[2021-08-16] MEDS: rOPINIRole HCL 2 MG TABLET PO SCH (21:32)
[2021-08-17] MEDS: SODIUM CHLORIDE 0.9% 1000ML 1,000 ML IV SCH (01:18)
[2021-08-17] MEDS: HYDROmorphone PCA 30 MG/30 ML IV PRN (06:01)
[2021-08-17 06:20] LABS: Basophils # (auto) 0.02 K/uL (0-0.2); Basophils % (auto) 0.2 %; Eosinophils # (auto) 0.58 K/uL (0-0.5); Eosinophils % (auto) 6.2 %; Hematocrit (blood only) 36.3 % (37-47); Hemoglobin 11.5 g/dL (12.0-16.0); Immature Granulocytes # (auto) 0.01 K/uL (0.00-0.02); Immature Granulocytes % (auto) 0.1 %; Lymphocytes % (auto) 32.3 %; Mean Corpuscular Hemoglobin 26.6 pg (25-34); Mean Corpuscular Hgb Conc 31.7 g/dL (32-36); Mean Platelet Volume 9.4 fL (7.4-10.4); Monocytes # (auto) 0.82 K/uL (0.11-0.59); Monocytes % (auto) 8.8 %; Neutrophils # (auto) 4.86 K/uL (1.4-6.5); Neutrophils % (auto) 52.4 %; Platelet Count 529 K/uL (130-400); RDW Coefficient of Variation 13.5 % (11.5-14.5); RDW Standard Deviation 41.6 fL (36.4-46.3); Red Blood Count 4.32 M/uL (4.2-5.4); White Blood Count 9.29 K/uL (4.8-10.8)
[2021-08-17 06:54] LABS: Albumin Level 3.2 gm/dl (3.4-5.0); BUN Creatinine Ratio 16.9 (10-20); Calcium 9.9 mg/dl (8.5-10.1); Creatinine Clr Calc Pharmacy 105.3 ml/min; Est GFR (African American) 122.2 ml/min; Est GFR (Non-African American) 105.4 ml/min; Potassium 4.3 mmol/L (3.5-5.1)
[2021-08-17 06:56] LABS: Albumin Globulin Ratio 0.7 (0.9-2); Bilirubin,Total 0.3 mg/dl (0.2-1); Globulin 4.9 gm/dl (2.5-4.0); Total Protein 8.1 gm/dl (6.4-8.2)
--- NOTE | 2021-08-17 08:04 | Hospitalist Progress Note ---
Date of Service August 17, 2021 Assessment & Plan (1) Osteomyelitis of great toe of right foot: (2) MRSA (methicillin resistant staph aureus) culture positive: (3) PAD (peripheral artery disease): (4) Diabetes mellitus type 2, uncontrolled: (5) Peripheral neuropathy: (6) Anemia: (7) Hyponatremia: (8) DVT prophylaxis: (9) HTN (hypertension): Plan: 1,2 1. Right great toe amputation, Resection flexor hallucis longus tendon, I&D medial hindfoot, Tenosynovectomy suppurative flexor digitorum longus tendon and tenosynovectomy suppurative posterior tibial tendon POD 4, (DOS 08/12/21) dressing changed this am and packing pulled completely. cont to ice/elevate heel WB wound culture MRSA, on Dapto will cont with IV Abx per primary team ortho will sign off at this time, she can f/u with dr ingram team in 12-14 days for suture removal in the office. contact us with any questions or concerns. recommendations from Orthopedics as noted above from August 14. See Infectious Disease recommendations for long-term treatment will further discuss with Orthopedics to determine oral versus IV antibiotics and duration. After discussion with ortho and ID recommendations, plan on total 14 day tx with 7 day IV ab and transition to po. OM complete removal, Would like to continue IV abx with extent of abscess at [facility] per Ortho then transition to po abx ABX Day#5, Daptomycin Pain management consult placed due to help in transition to Po medications medications changed, appreciate their input. 3. patient underwent angiogram to evaluate peripheral artery disease See vascular Medicine progress notes today mild non obstructive PA D reported 4. uncontrolled diabetes Continue education Continue dietary control Continue pharmacy per protocol Continue insulin protocol Refer to endocrinology [facility], pt preference 5. Peripheral Neuropathy improvement of diabetes long-term Continue with current medications may want to consider changed adjunctive medications for pain control Currently taking nortriptyline Likely contributing factor to current pain symptoms. May want to consider future changes with her new PCP outpt Does not tolerate gapabentin, Lyrica not covered by insurance per pt. Possible cymbalta trial in conjucntion with tx of underlying anxiety/PTSD 6. Anemia stable during hospitalization no reported symptoms Improving since procedure and osteomyelitis treatment 7. hyponatremia resolved 8. HTN start Lisinopril 10 mg with underlying uncontrolled DM and elevations through hospital stay. recheck bmp in am 8. DVT prophylaxis Admission and Anticipated Discharge Date Admission Date: August 09, 2021 Subjective pain controlled sitting up in bed eating breakfast. Pleasant looking to go home soon. rt foot is doing well, reduction in pain, reduced edema slept overnight seen by pain management agreeable to future f/u with Endo at [place] Review of Systems Constitutional: no fever and no chills Respiratory: no cough, no chest congestion, no dyspnea and no wheezing Cardiovascular: no chest pain, no palpitations and no edema Gastrointestinal: no abdominal pain, no heartburn, no nausea, no vomiting and no change in bowel habits Neurologic: + gait abnormality; no falls and no headache(s) Physical Exam Physical Exam: Constitutional: WD/WN, vitals as above Respiratory: Effort normal, CTA B/L CV: RRR, no murmur, no edema Abdomen: normal bowel sounds, soft, nontender, no hepatosplenomegaly Results & Data Results & Data ([facility]) Vital Signs (Past 12 Hours) Vital Signs Temp Pulse Pulse Resp BP Pulse Ox 08/17/21 07:07 36.8 C 98 H 18 190/92 H 99 08/17/21 05:06 36.7 C 92 H 16 118/61 92 08/17/21 01:22 36.6 C 81 17 164/77 H 91 08/16/21 21:59 36.5 C 79 16 156/88 H 99 08/16/21 20:19 36.8 C 79 16 162/91 H 100 Laboratory Results Laboratory Results - last 24 hr 08/16/21 08/16/21 08/16/21 07:13 07:13 12:22 WBC 7.06 RBC 3.98 L Hgb 10.7 L Hct 33.2 L MCV 83.4 MCH 26.9 MCHC 32.2 RDW Std Deviation 41.1 RDW Coeff of [place] 13.5 Plt Count 519 H MPV 9.2 Immature Gran % (Auto) 0.1 Neut % (Auto) 52.7 Lymph % (Auto) 30.7 [place] % (Auto) 10.1 Eos % (Auto) 6.1 Baso % (Auto) 0.3 Neut # (Auto) 3.72 Lymph # (Auto) 2.17 [place] # (Auto) 0.71 H Eos # (Auto) 0.43 Baso # (Auto) 0.02 Immature Gran # (Auto) 0.01 Sodium 138 Potassium 4.1 Chloride 103 Carbon Dioxide 32 Anion Gap 3.0 BUN 6 L D Creatinine 0.38 L Est Cr Clr Drug Dosing 146.8 Est GFR ( Amer) 136.3 Est GFR (Non-Af Amer) 117.6 BUN/Creatinine Ratio 16.2 Glucose 82 POC Glucose 112 H Calcium 9.4 Total Bilirubin AST ALT Alkaline Phosphatase Total Protein Albumin Globulin Albumin/Globulin Ratio 08/16/21 08/16/21 08/17/21 16:53 20:17 05:47 WBC 9.29 RBC 4.32 Hgb 11.5 L Hct 36.3 L MCV 84.0 MCH 26.6 MCHC 31.7 L RDW Std Deviation 41.6 RDW Coeff of [place] 13.5 Plt Count 529 H MPV 9.4 Immature Gran % (Auto) 0.1 Neut % (Auto) 52.4 Lymph % (Auto) 32.3 [place] % (Auto) 8.8 Eos % (Auto) 6.2 Baso % (Auto) 0.2 Neut # (Auto) 4.86 Lymph # (Auto) 3.00 [place] # (Auto) 0.82 H Eos # (Auto) 0.58 H Baso # (Auto) 0.02 Immature Gran # (Auto) 0.01 Sodium Potassium Chloride Carbon Dioxide Anion Gap BUN Creatinine Est Cr Clr Drug Dosing Est GFR ( Amer) Est GFR (Non-Af Amer) BUN/Creatinine Ratio Glucose POC Glucose 152 H 120 H Calcium Total Bilirubin AST ALT Alkaline Phosphatase Total Protein Albumin Globulin Albumin/Globulin Ratio 08/17/21 05:47 WBC RBC Hgb Hct MCV MCH MCHC RDW Std Deviation RDW Coeff of [place] Plt Count MPV Immature Gran % (Auto) Neut % (Auto) Lymph % (Auto) [place] % (Auto) Eos % (Auto) Baso % (Auto) Neut # (Auto) Lymph # (Auto) [place] # (Auto) Eos # (Auto) Baso # (Auto) Immature Gran # (Auto) Sodium 134 L Potassium 4.3 Chloride 99 Carbon Dioxide 30 Anion Gap 5.0 BUN 9 Creatinine 0.53 L Est Cr Clr Drug Dosing 105.3 Est GFR ( Amer) 122.2 Est GFR (Non-Af Amer) 105.4 BUN/Creatinine Ratio 16.9 Glucose 119 H POC Glucose Calcium 9.9 Total Bilirubin 0.3 AST 14 L ALT 19 Alkaline Phosphatase 135 H Total Protein 8.1 Albumin 3.2 L Globulin 4.9 H Albumin/Globulin Ratio 0.7 L PG Care Time/CCT Total # of Minutes Spent Total Time Spent with Patient: Total time spent is greater than 50% in coordination of care (as documented) at patient's floor/unit and/or counseling patient: Coding Level of Care Code 73692 Subseq Hosp Care Lvl 2 Diagnoses Osteomyelitis of great toe of right foot M86.9 MRSA (methicillin resistant staph aureus) culture positive Z22.322 PAD (peripheral artery disease) I73.9 Diabetes mellitus type 2, uncontrolled E11.65 Peripheral neuropathy G62.9 Anemia D64.9 Hyponatremia E87.1 DVT prophylaxis Z29.9 HTN (hypertension) I10
[2021-08-17] MEDS ORDERED: HYDROmorphone INJ 1 MG/ML SYRINGE IV STA (09:12)
--- NOTE | 2021-08-17 09:16 | Pain Management Consultation ---
Date of Consultation August 17, 2021 Assessment & Plan (1) Osteomyelitis of great toe of right foot: (2) Diabetes mellitus type 2, uncontrolled: (3) Peripheral neuropathy: 1. Dilaudid CANARY RAISER was discontinued in preparation or future discharge. 2. I have placed the patient on Oxycodone 10mg x 4 hours for pain. 3. Dilaudid 1 mg x 3 hours will remain if needed for breakthrough pain. 4. Will follow up with the patient tomorrow to check on progress. 5. Patient was crying and upset during our discussion. She is mostly upset with the lack of sleep and her significant pain. I did have a long conversation with the patient discussing her pain management and she is in agreement with the plan. History of Present Illness Attending Physician: Miguel Barnett, History of Present Illness This is a 56-year-old female with a significant history of uncontrolled diabetes mellitus, peripheral neuropathy, and right foot wounds with osteomyelitis/tenosynovitis. She has required multiple surgical interventions including right great toe amputation. Most recent surgery was on 08/12/2021. Patient describes a sharp burning pain along the right foot. She is able to walk on the heel but not recommended to fully weight-bear at this time. She has been struggling with pain relief. Dilaudid CANARY RAISER has been providing moderate relief but nothing will alleviate the sharp stabbing that she intermittently experiences. Pain Assessment Full Body Front + Back: 1. 2. Allergies Allergy/AdvReac Type Severity Reaction Status Date / Time morphine Allergy Severe blisters Verified 08/09/21 15:02 in mouth Sulfa (Sulfonamide Allergy Severe rash/swelli Verified 08/09/21 15:02 Antibiotics) ng vancomycin Allergy Intermediate YULIYA Verified 08/09/21 15:02 SYNDROME Home Medications Medication Instructions Recorded Confirmed Type aspirin 81 mg tablet,delayed 81 mg PO QAM 10/19/20 08/09/21 History release (Aspirin Low Dose) cyclobenzaprine 10 mg tablet 10 mg PO TID 10/19/20 08/09/21 History nortriptyline 50 mg capsule 100 mg PO HS 10/19/20 08/09/21 History (Pamelor) ropinirole 2 mg tablet 4 mg PO HS 10/19/20 08/09/21 History zolpidem 10 mg tablet (Ambien) 10 mg PO HS 10/19/20 08/09/21 History lancets (OneTouch UltraSoft #100 ea 11/12/20 07/14/21 History Lancets) atorvastatin 40 mg tablet (Lipitor) 40 mg PO HS 01/24/21 08/09/21 History lisinopril 10 mg tablet (Zestril) 10 mg PO QAM 01/24/21 08/09/21 History lorazepam 1 mg tablet (Ativan) 1 mg PO TID #21 tab 01/28/21 08/09/21 Rx albuterol sulfate 90 mcg/actuation 1 puff INHALATION QID PRN 03/05/21 08/09/21 History aerosol inhaler (Proventil HFA) insulin glargine 100 unit/mL (3 40 unit SUBCUT HS 03/05/21 08/09/21 History mL) subcutaneous pen (Basaglar KwikPen U-100 Insulin) insulin lispro 100 unit/mL 10 unit SUBCUT TIDM 03/05/21 08/09/21 History subcutaneous pen (Humalog KwikPen (U-100) Insulin) metoprolol succinate 50 mg 50 mg PO QAM 03/05/21 08/09/21 History tablet,extended release 24 hr (Toprol XL) amoxicillin 875 mg-potassium 1 tab PO BID #20 tab 07/24/21 08/09/21 Rx clavulanate 125 mg tablet (Augmentin) Patient History Medical History Cellulitis Chronic back pain Depression DM2 (diabetes mellitus, type 2) Gastritis GIB (gastrointestinal bleeding) Hyperlipidemia Insulin dependent diabetes mellitus Nonobstructive atherosclerosis of coronary artery Numbness of lower extremity Peripheral neuropathy Right second toe ulcer Seizures Surgical History History of cardiac cath done at [facility]; 09/22/19; LM - mild luminal irregularities. LAD - mid 20-30%, distal with myocardial bridge & 30% stenosis. L Cx - mild luminal irregularities. RCA - proximal <30% stenosis; mid/distal vessel mild plaques. PDA - mild luminal irregularities. History of esophagogastroduodenoscopy (EGD) Family History Mother , age 63 Myocardial infarction Father , age 68 or 69 Myocardial infarction Brother S/P CABG (coronary artery bypass graft) Sister Myocardial infarction x 3; she is 57yo Social History Smoking Status: Former smoker Tobacco Type: Cigarettes packs per day: 1; Years Smoked: 20; Cigarettes Per Day: 1 PPD for 20 years; Second Hand Exposure: No; Hx Alcohol Use: No Hx Substance Use: No Preferred Language: Nepali Communication Ability: Effective Napper Grinder Required: No Beliefs That Will Affect Care: None marital status: Current Living Situation: Spouse 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 She is anxious and frustrated during our conversation. HEAD/FACE: Normocephalic and atraumatic. EYES: No drainage or conjunctival injection. ENT: Nose without bleeding or discharge. Oral mucosa moist. NECK: Full ROM without apparent pain. No swelling or masses noted. RESPIRATORY: Patient with unlabored breathing. No signs of respiratory distress. CHEST/AXILLA: Chest movement symmetrical. No deformities noted. BACK: Moves without difficulty SKIN: [place], warm and dry. No rash noted. MS/EXTREMITY: There is an incision at the MTP and along the medial ankle. Both areas are erythematous. At MTP there is some purulent drainage noted. NEURO: Alert and appears oriented. Speech is fluent. Cranial Nerves are grossly intact.
[2021-08-17] MEDS: INSULIN ASPART PER UNIT SC SCH ×4 (09:22→21:42)
[2021-08-17] MEDS: ACETAMINOPHEN 325 MG TAB PO SCH ×4 (09:56→21:30)
[2021-08-17] MEDS: METOPROLOL SUCC 50MG EXT REL TAB PO SCH (09:57)
[2021-08-17] MEDS: CHOLECALCIFEROL 5,000 UNITS 125 MCG TAB PO SCH (09:57)
[2021-08-17] MEDS: LORazepam 1 MG TAB PO SCH ×3 (09:57→21:23)
[2021-08-17] MEDS: ASPIRIN 81 MG ECTAB PO SCH (09:57)
[2021-08-17] MEDS: CYCLOBENZAPRINE HCL 10 MG TAB PO SCH ×3 (09:57→21:23)
[2021-08-17] MEDS: lisinopril 10 MG TAB PO SCH (12:26)
[2021-08-17] MEDS: oxyCODONE HCL IR 5 MG TAB (IMMEDIATE RELEASE) PO PRN ×2 (13:19→21:45)
[2021-08-17] MEDS: HYDROmorphone INJ 1 MG/ML SYRINGE IV PRN ×2 (15:32→19:34)
[2021-08-17] MEDS: DAPTOmycin 300 MG in SYRINGE 0 ML IV SCH (17:23)
[2021-08-17] MEDS: ZOLPIDEM TARTRATE 10 MG TAB PO SCH (21:24)
[2021-08-17] MEDS: rOPINIRole HCL 2 MG TABLET PO SCH (21:24)
[2021-08-17] MEDS: NORTRIPTYLINE HCL 25 MG CAP PO SCH (21:25)
[2021-08-17] MEDS: INSULIN GLARGINE SOLOSTAR 100 UNITS/ML 3 ML PEN SC SCH (21:41)
[2021-08-18] MEDS: HYDROmorphone INJ 1 MG/ML SYRINGE IV PRN ×4 (02:20→17:47)
--- NOTE | 2021-08-18 07:32 | Hospitalist Progress Note ---
Date of Service August 18, 2021 Assessment & Plan (1) Osteomyelitis of great toe of right foot: (2) MRSA (methicillin resistant staph aureus) culture positive: (3) PAD (peripheral artery disease): (4) Diabetes mellitus type 2, uncontrolled: (5) Peripheral neuropathy: (6) Anemia: (7) Hyponatremia: (8) DVT prophylaxis: (9) HTN (hypertension): Plan: 1,2 1. Right great toe amputation, Resection flexor hallucis longus tendon, I&D medial hindfoot, Tenosynovectomy suppurative flexor digitorum longus tendon and tenosynovectomy suppurative posterior tibial tendon POD 4, (DOS 08/12/21) dressing changed this am and packing pulled completely. cont to ice/elevate heel WB wound culture MRSA, on Dapto will cont with IV Abx per primary team ortho will sign off at this time, she can f/u with dr ingram team in 12-14 days for suture removal in the office. contact us with any questions or concerns. recommendations from Orthopedics as noted above from August 14. See Infectious Disease recommendations for long-term treatment will further discuss with Orthopedics to determine oral versus IV antibiotics and duration. After discussion with ortho and ID recommendations, plan on total 14 day tx with 7 day IV ab and transition to po. OM complete removal, Would like to continue IV abx with extent of abscess at [facility] per Ortho then transition to po abx ABX Day#5, Daptomycin Pain management consult placed due to help in transition to Po medications medications changed, appreciate their input. 3. patient underwent angiogram to evaluate peripheral artery disease See vascular Medicine progress notes today mild non obstructive PA D reported 4. uncontrolled diabetes Continue education Continue dietary control Continue pharmacy per protocol Continue insulin protocol Refer to endocrinology [facility], pt preference 5. Peripheral Neuropathy improvement of diabetes long-term Continue with current medications may want to consider changed adjunctive medications for pain control Currently taking nortriptyline Likely contributing factor to current pain symptoms. May want to consider future changes with her new PCP outpt Does not tolerate gapabentin, Lyrica not covered by insurance per pt. Possible cymbalta trial in conjucntion with tx of underlying anxiety/PTSD 6. Anemia stable during hospitalization no reported symptoms Improving since procedure and osteomyelitis treatment 7. hyponatremia resolved 8. HTN start Lisinopril 10 mg with underlying uncontrolled DM and elevations through hospital stay. recheck bmp in am 8. DVT prophylaxis Admission and Anticipated Discharge Date Admission Date: August 09, 2021 Subjective pain controlled sitting up in bed eating breakfast. Pleasant looking to go home soon. rt foot is doing well, reduction in pain, reduced edema slept overnight seen by pain management agreeable to future f/u with Endo at [place] Review of Systems Constitutional: no fever and no chills Respiratory: no cough, no chest congestion, no dyspnea and no wheezing Cardiovascular: no chest pain, no palpitations and no edema Gastrointestinal: no abdominal pain, no heartburn, no nausea, no vomiting and no change in bowel habits Neurologic: no gait abnormality, no falls and no headache(s) Physical Exam Physical Exam: Constitutional: WD/WN, vitals as above ENMT: External ear and nose normal, TMs and EAC normal Neck: trachea midline, no thyromegaly Lymphatic: No cervical lymphadenopathy Respiratory: Effort normal, CTA B/L CV: RRR, no murmur, no edema Abdomen: normal bowel sounds, soft, nontender, no hepatosplenomegaly Neurologic: Normal gait Musculoskeletal: Skin: Psychiatric: Results & Data Results & Data ([facility]) Vital Signs (Past 12 Hours) Vital Signs Temp Pulse Resp BP BP Pulse Ox 08/18/21 07:27 36.7 C 86 18 113/63 91 08/17/21 21:36 36.8 C 79 16 121/71 97 PG Care Time/CCT Total # of Minutes Spent Total Time Spent with Patient: Total time spent is greater than 50% in coordination of care (as documented) at patient's floor/unit and/or counseling patient: Coding Diagnoses Osteomyelitis of great toe of right foot M86.9 MRSA (methicillin resistant staph aureus) culture positive Z22.322 PAD (peripheral artery disease) I73.9 Diabetes mellitus type 2, uncontrolled E11.65 Peripheral neuropathy G62.9 Anemia D64.9 Hyponatremia E87.1 DVT prophylaxis Z29.9 HTN (hypertension) I10
--- NOTE | 2021-08-18 08:27 | Discharge Summary ---
Date of Service August 18, 2021 Discharge Data Allergies Allergy/AdvReac Type Severity Reaction Status Date / Time morphine Allergy Severe blisters Verified 08/09/21 15:02 in mouth Sulfa (Sulfonamide Allergy Severe rash/swelli Verified 08/09/21 15:02 Antibiotics) ng vancomycin Allergy Intermediate YULIYA Verified 08/09/21 15:02 SYNDROME Consultations 08/09/21 18:45 Consult Orthopedic Surgery Routine 08/10/21 18:55 Consult Vascular Surgery Routine 08/13/21 19:23 Consult [facility] first breaker feeder Routine 08/14/21 09:02 Consult Infectious Diseases Routine 08/16/21 09:10 Consult Pain Management Routine Procedures Performed Operation Date: 08/12/21 09:25 Actual Procedures p Right Great Toe Amputation(Right) - Akhil Montaño DO Operation Date: 08/15/21 11:00 Actual Procedures p Angio Extremity Bilateral - Adonis Lin MD s SC Select Cath ALEP 3rd Order - Adonis Lin MD Ordered Studies 08/09/21 16:24 US venous doppler LE RT Stat 08/09/21 16:39 MR lower leg RT wo/w con Stat 08/10/21 12:06 MR foot RT wo/w con Urgent 08/15/21 09:31 CL Cath Imgs for PACS use only Stat Home Health Attestation I certify that this patient is under my care and that I, or a physicians patient care nursing assistant working with me, had a face to-face encounter that meets the home health [id number] encounter requirements with this patient. The encounter with the patient was in whole, or in part, for the following medical condition, which is the primary reason for home health care (list medical condition): Right great toe osteo s/p toe amputation. I certify that, based on my findings, the following services are medically necessary home health services: My clinical findings support the need for the above services because: PT Assessment for Endurance / Balance / Strength PT Eval for Safety and Mobility PT Eval for Safety, Gait Training, Assistive Devices PT Gait and Balance Training, Strengthening and Safety Safety Skilled Nsg Assessment Skilled Nsg Assessment Surgical Incision / Wound Further, I certify that my clinical findings support that this patient is homebound (i.e. absences from home require considerable and taxing effort and are for medical reasons or latter day services or infrequently or of short duration when for other reasons) because: Assistance of 1 Person for Ambulation/Activities Certification for Home Health Services: Based on the above findings, I certify that this patient is confined to the home and needs intermittent jail care, physical therapy and/or speech therapy or continues to need occupational therapy. The patient is under my care, and I have initiated the establishment of the plan of care. This patient will be followed by a physician who will periodically review the plan of care. Discharge Plan Discharge Items Reason For Visit: BIG TOE ON RT FT INFECTED- S/P PARTIAL AMPUTATION Follow-up/Referrals: Vince Vernon DO [Primary Care Provider] - Addtl Director Equipment Provider Instructions: ACTIVITY RECOMMENDATIONS: Limitations: Heel weight bearing only if able to tolerate. SPECIAL CARE INSTRUCTIONS: * Some drainage onto the dressing is normal and is no cause for alarm. * Some swelling is natural especially after walking. * When resting, keep your foot elevated above the level of your heart. * Call [facility] if you notice: -Increased drainage -Fever over 101 degrees F -Severe constant pain BANDAGE: * daily dressing changes as discussed in the hospital, adaptec, 4x4, kerlex and ayad. FOLLOW UP VISIT WITH DR. MONTAÑO If appointment is not already scheduled: Please call [facility] after you get home today to schedule a follow-up appointment for [address] Montaño at . Medications and DC Order Prescriptions: No Action (DME) lancets [OneTouch UltraSoft Lancets] Misc See Rx Instructions .ROUTE .MEDSUPPLY Qty: 100 RF: 0 atorvastatin [Lipitor] 40 mg tablet 40 mg PO HS RF: 0 lisinopril [Zestril] 10 mg tablet 10 mg PO QAM RF: 0 lorazepam [Ativan] 1 mg Tablet 1 mg PO TID Qty: 21 RF: 0 albuterol sulfate [Proventil HFA] 90 mcg/actuation HFA aerosol inhaler 1 puff inhalation QID PRN (Reason: Shortness Of Breath) RF: 0 insulin lispro [Humalog KwikPen Insulin] 100 unit/mL insulin pen 10 unit SUBCUT TIDM RF: 0 metoprolol succinate [Toprol XL] 50 mg tablet extended release 24 hr 50 mg PO QAM RF: 0 Basaglar KwikPen U-100 Insulin 100 unit/mL (3 mL) insulin pen 40 unit SUBCUT HS RF: 0 amoxicillin-pot clavulanate [Augmentin] 875-125 mg tablet 1 tab PO BID Qty: 20 RF: 0 cyclobenzaprine 10 mg Tablet 10 mg PO TID RF: 0 aspirin [Aspirin Low Dose] 81 mg Tablet,Delayed Release (Dr/Ec) 81 mg PO QAM RF: 0 ropinirole 2 mg Tablet 4 mg PO HS RF: 0 zolpidem [Ambien] 10 mg Tablet 10 mg PO HS RF: 0 nortriptyline [Pamelor] 50 mg Capsule 100 mg PO HS RF: 0 Krames/Other Patient Handouts: Nutrition for Wound Healing, Managing Type 2 Diabetes Admission Data Admit Date/Time: 08/09/21 15:59 Attending Provider: Miguel Barnett Admit Provider: Sajan Allan Primary Care Provider: Vince Vernon Other Providers: Sajan Allan ; Akhil Montaño ; Adonis Lin ; Sylvain Collins ; Esthela Curtis ; Harish Arciniega I. ; Cristhian Oconnor II ; Minda Vargas ; Dami Willard ; David Banerjee ; Dallas Polk ; Sherri,[facility] ; [facility] Coding
--- NOTE | 2021-08-18 08:31 | Discharge Summary ---
Date of Service August 18, 2021 Discharge Data Allergies Allergy/AdvReac Type Severity Reaction Status Date / Time morphine Allergy Severe blisters Verified 08/09/21 15:02 in mouth Sulfa (Sulfonamide Allergy Severe rash/swelli Verified 08/09/21 15:02 Antibiotics) ng vancomycin Allergy Intermediate YULIYA Verified 08/09/21 15:02 SYNDROME Consultations 08/09/21 18:45 Consult Orthopedic Surgery Routine 08/10/21 18:55 Consult Vascular Surgery Routine 08/13/21 19:23 Consult [facility] health information technician Routine 08/14/21 09:02 Consult Infectious Diseases Routine 08/16/21 09:10 Consult Pain Management Routine Procedures Performed Operation Date: 08/12/21 09:25 Actual Procedures p Right Great Toe Amputation(Right) - Akhil Montaño DO Operation Date: 08/15/21 11:00 Actual Procedures p Angio Extremity Bilateral - Adonis Lin MD s [facility] ALEP 3rd Order - Adonis Lin MD Ordered Studies 08/09/21 16:24 US venous doppler LE RT Stat 08/09/21 16:39 MR lower leg RT wo/w con Stat 08/10/21 12:06 MR foot RT wo/w con Urgent 08/15/21 09:31 CL Cath Imgs for PACS use only Stat Home Health Attestation I certify that this patient is under my care and that I, or a physicians teachers assistant working with me, had a face to-face encounter that meets the home health [id number] encounter requirements with this patient. The encounter with the patient was in whole, or in part, for the following medical condition, which is the primary reason for home health care (list medical condition): Right great toe osteo s/p toe amputation. I certify that, based on my findings, the following services are medically necessary home health services: My clinical findings support the need for the above services because: PT Assessment for Endurance / Balance / Strength PT Eval for Safety and Mobility PT Eval for Safety, Gait Training, Assistive Devices PT Gait and Balance Training, Strengthening and Safety Safety Skilled Nsg Assessment Skilled Nsg Assessment Surgical Incision / Wound Further, I certify that my clinical findings support that this patient is homebound (i.e. absences from home require considerable and taxing effort and are for medical reasons or worship services or infrequently or of short duration when for other reasons) because: Assistance of 1 Person for Ambulation/Activities Certification for Home Health Services: Based on the above findings, I certify that this patient is confined to the home and needs intermittent half-way care, physical therapy and/or speech therapy or continues to need occupational therapy. The patient is under my care, and I have initiated the establishment of the plan of care. This patient will be followed by a physician who will periodically review the plan of care. Discharge Plan Discharge Items Reason For Visit: BIG TOE ON RT FT INFECTED- S/P PARTIAL AMPUTATION Follow-up/Referrals: Vince Vernon DO [Primary Care Provider] - Addtl Bookkeeper Provider Instructions: ACTIVITY RECOMMENDATIONS: Limitations: Heel weight bearing only if able to tolerate. SPECIAL CARE INSTRUCTIONS: * Some drainage onto the dressing is normal and is no cause for alarm. * Some swelling is natural especially after walking. * When resting, keep your foot elevated above the level of your heart. * Call [facility] if you notice: -Increased drainage -Fever over 101 degrees F -Severe constant pain BANDAGE: * daily dressing changes as discussed in the hospital, adaptec, 4x4, kerlex and ayad. FOLLOW UP VISIT WITH DR. MONTAÑO If appointment is not already scheduled: Please call [facility] after you get home today to schedule a follow-up appointment for [address] Montaño at . Medications and DC Order Prescriptions: No Action (DME) lancets [OneTouch UltraSoft Lancets] Misc See Rx Instructions .ROUTE .MEDSUPPLY Qty: 100 RF: 0 atorvastatin [Lipitor] 40 mg tablet 40 mg PO HS RF: 0 lisinopril [Zestril] 10 mg tablet 10 mg PO QAM RF: 0 lorazepam [Ativan] 1 mg Tablet 1 mg PO TID Qty: 21 RF: 0 albuterol sulfate [Proventil HFA] 90 mcg/actuation HFA aerosol inhaler 1 puff inhalation QID PRN (Reason: Shortness Of Breath) RF: 0 insulin lispro [Humalog KwikPen Insulin] 100 unit/mL insulin pen 10 unit SUBCUT TIDM RF: 0 metoprolol succinate [Toprol XL] 50 mg tablet extended release 24 hr 50 mg PO QAM RF: 0 Basaglar KwikPen U-100 Insulin 100 unit/mL (3 mL) insulin pen 40 unit SUBCUT HS RF: 0 amoxicillin-pot clavulanate [Augmentin] 875-125 mg tablet 1 tab PO BID Qty: 20 RF: 0 cyclobenzaprine 10 mg Tablet 10 mg PO TID RF: 0 aspirin [Aspirin Low Dose] 81 mg Tablet,Delayed Release (Dr/Ec) 81 mg PO QAM RF: 0 ropinirole 2 mg Tablet 4 mg PO HS RF: 0 zolpidem [Ambien] 10 mg Tablet 10 mg PO HS RF: 0 nortriptyline [Pamelor] 50 mg Capsule 100 mg PO HS RF: 0 Krames/Other Patient Handouts: Nutrition for Wound Healing, Managing Type 2 Diabetes Admission Data Admit Date/Time: 08/09/21 15:59 Attending Provider: Miguel Barnett Admit Provider: Sajan Allan Primary Care Provider: Vince Vernon Other Providers: Sajan Allan ; Akhil Montaño ; Adonis Lin ; Sylvain Collins ; Esthela Curtis ; Harish Arciniega I. ; Cristhian Oconnor II ; Minda Vargas ; Dami Willard ; David Banerjee ; Dallas Polk ; Sherri,[facility] ; [facility] Coding
--- NOTE | 2021-08-18 08:46 | Pain Management Progress Note ---
Date of Service August 18, 2021 Assessment & Plan (1) Osteomyelitis of great toe of right foot: (2) Diabetes mellitus type 2, uncontrolled: (3) Peripheral neuropathy: Plan: 1. Continue Oxycodone 10mg x 4 hours PRN pain. 2. She does have IV Dilaudid ordered if needed for breakthrough pain. 3. We did discuss the initiation of Lyrica but she states that insurance wouldn't cover it. We then discussed Keppra to help with neuropathic pain that is likely involved. She says that she will think about it but does not want to start it right now. Will sign off on patient. Please contact if there are any questions or concerns. Admission and Anticipated Discharge Date Admission Date: August 09, 2021 Subjective Mrs. Witt states that her pain is well controlled with the current medication regimen. Currently she is receiving Oxycodone 10mg x 4 hours (2x in 24 hrs) and IV Dilaudid 1mg x 3 hours PRN breakthrough pain (4x in 24 hours). She denies any side effects to the medications. No confusion, constipation. Physical Exam Physical Exam: GENERAL: This is a 56 year old female. Resting comfortably in the hospital bed. HEAD/FACE: Normocephalic and atraumatic. EYES: No drainage or conjunctival injection. ENT: Nose without bleeding or discharge. Oral mucosa moist. NECK: Full ROM without apparent pain. No swelling or masses noted. RESPIRATORY: Patient with unlabored breathing. No signs of respiratory distress. CHEST/AXILLA: Chest movement symmetrical. No deformities noted. BACK: Moves without difficulty SKIN: [place], warm and dry. No rash noted. MS/EXTREMITY: There is an incision at the MTP and along the medial ankle. Both areas are erythematous. At MTP there is some purulent drainage noted. NEURO: Alert and appears oriented. Speech is fluent. Cranial Nerves are grossly intact.
[2021-08-18] MEDS: INSULIN ASPART PER UNIT SC SCH ×2 (09:25→13:28)
[2021-08-18] MEDS: CYCLOBENZAPRINE HCL 10 MG TAB PO SCH ×2 (09:29→14:28)
[2021-08-18] MEDS: ASPIRIN 81 MG ECTAB PO SCH (09:29)
[2021-08-18] MEDS: METOPROLOL SUCC 50MG EXT REL TAB PO SCH (09:29)
[2021-08-18] MEDS: LORazepam 1 MG TAB PO SCH ×2 (09:29→13:16)
[2021-08-18] MEDS: ACETAMINOPHEN 325 MG TAB PO SCH ×2 (09:29→13:16)
[2021-08-18] MEDS: lisinopril 10 MG TAB PO SCH (09:30)
[2021-08-18] MEDS: CHOLECALCIFEROL 5,000 UNITS 125 MCG TAB PO SCH (09:30)
--- NOTE | 2021-08-18 10:12 | Discharge Summary ---
Date of Service August 18, 2021 Admission HPI Per Admitting Provider R foot post op infection Primary Care Provider: Vince VernonDO Mariana is a 56-year-old female with a past medical history of poorly controlled type 2 diabetes mellitus, peripheral artery disease, hyperlipidemia, hypertension, diabetic foot infection status post amputation of previous hospitalization who presents from the orthopedics office with concern for a right great toe surgical site infection. Patient is seen briefly in bed holding due to lack of bed/ER availability in order to expedite evaluation. Patient continues to have 810 out of 10 pain in her right foot with mild improvement with oxycodone. Endorses purulent discharge. She is not experiencing chest pain, chest pressure, nausea, vomiting, diarrhea, fever, chills, difficulty breathing, orthopnea, dysuria. Was referred over from Dr. Chu's office. Patient visited for reassessment in room B5. Further history patient reports she has had foot pain as noted, has also had a sending pain up her right foot into the calf/knee in the last 5 days and that the pain in her foot will sometimes send lightninglike jolts up to her knee. Endorses erythema and some swelling of the toe. Sensation intact in feet bilaterally, tender in the muscle bulk of the right calf. Medical History: Reviewed Medications: Reviewed. Last took medications last night Surgical History: Reviewed Allergies: Reviewed, allergic to sulfa. Hx MARTHA to vanco. Social History: Former smoker, no alcohol use, no recreational drug use Code Status: Full code Admission Exam Per Admitting Provider General: A&Ox3. NAD. Cooperative. Appears uncomfortable, but nontoxic HEENT: Atraumatic, normocephalic. Vision and hearing grossly intact. Pulm: CTAB A&P. -wheezes, -rales, -rhonchi. Symmetrical chest rise. No increase work of breathing. No respiratory distress. Cardiac: Regular, tachycardic, -mrg. Radial pulses intact and symmetrical. Abdominal: Nontender, nondistended, soft. BS present. Ext: Right foot s/p R hallux and second digit amputation with surgical wound with purulent drainage at lateral aspect, sutures in place. Surrounding erythema, prominent tenderness. Left foot intact. No pedal edema. 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 Severe pain up through right foot and calf on exam. Right foot DP pulse intact, toes with brisk capillary refill. Principal Diagnosis Right great toe osteomyelitis, flexor hallucis longus suppurative tenosynovitis, abscess medial hindfoot, infectious tenosynovitis flexor digitorum longus tendon, infectious tenosynovitis posterior tibial tendon Uncontrolled DM Discharge Exam Constitutional WD/WN, vitals as above Respiratory normal respiratory effort, lungs clear to auscultation Cardiovascular RRR, no murmur, no edema Gastrointestinal (Abdomen) normal bowel sounds, soft, nontender, no hepatosplenomegaly Musculoskeletal Pt's dressing is off. Hindfoot wound approximated. Dark erythema surrounds the incision site. No drainage. Right 1st toe amp site approximated. Mild serous drainage. Mild maceration at central portion of wound. No foul odor. Mild erythema. Wounds redressed with adaptic, 4x4's, kelix, ayad wrap. Most recent eval by Ortho with redressing Discharge Data Allergies Allergy/AdvReac Type Severity Reaction Status Date / Time morphine Allergy Severe blisters Verified 08/09/21 15:02 in mouth Sulfa (Sulfonamide Allergy Severe rash/swelli Verified 08/09/21 15:02 Antibiotics) ng vancomycin Allergy Intermediate YULIYA Verified 08/09/21 15:02 SYNDROME Consultations 08/09/21 18:45 Consult Orthopedic Surgery Routine 08/10/21 18:55 Consult Vascular Surgery Routine 08/13/21 19:23 Consult [facility] baker chef Routine 08/14/21 09:02 Consult Infectious Diseases Routine 08/16/21 09:10 Consult Pain Management Routine Procedures Performed Operation Date: 08/12/21 09:25 Actual Procedures p Right Great Toe Amputation(Right) - Akhil Chu DO Operation Date: 08/15/21 11:00 Actual Procedures p Angio Extremity Bilateral - Adonis Lin MD s SC Select Cath ALEP 3rd Order - Adonis Lin MD Ordered Studies 08/09/21 16:24 US venous doppler LE RT Stat 08/09/21 16:39 MR lower leg RT wo/w con Stat 08/10/21 12:06 MR foot RT wo/w con Urgent 08/15/21 09:31 CL Cath Imgs for PACS use only Stat Hospital Course (1) Osteomyelitis of great toe of right foot: (2) MRSA (methicillin resistant staph aureus) culture positive: (3) PAD (peripheral artery disease): (4) Diabetes mellitus type 2, uncontrolled: (5) Peripheral neuropathy: (6) Anemia: (7) Hyponatremia: (8) DVT prophylaxis: (9) HTN (hypertension): 1,2 1. Right great toe amputation, Resection flexor hallucis longus tendon, I&D medial hindfoot, Tenosynovectomy suppurative flexor digitorum longus tendon and tenosynovectomy suppurative posterior tibial tendon POD 4, (DOS 08/12/21) dressing changed this am and packing pulled completely. cont to ice/elevate heel WB wound culture MRSA, on Dapto will cont with IV Abx per primary team ortho will sign off at this time, she can f/u with dr chu team in 12-14 days for suture removal in the office. contact us with any questions or concerns. recommendations from Orthopedics as noted above from August 14. See Infectious Disease recommendations for long-term treatment will further discuss with Orthopedics to determine oral versus IV antibiotics and duration. After discussion with ortho and ID recommendations, plan on total 14 day tx . Transition to Clindamycin 450mg po q8 for total of 14 days. last dose 08/26/2021 Pain Medication, Continue with Oxycodone 10mg po q4 prn Foot Pain Wound care continued with home health, CM working on f/u. per ortho Wound dressing changed daily with Adapic, 4x4s, and Kelix,ayad wrap. F/U with Ortho Dr. Chu 3. patient underwent angiogram to evaluate peripheral artery disease See vascular Medicine progress notes today mild non obstructive PA D reported 4. uncontrolled diabetes Continue education Continue dietary control Continue pharmacy per protocol Continue insulin protocol Refer to endocrinology [facility], pt preference Change Basaglar 15 units qhs Change Lispro 3 units TID Addmetformin titrate to 500mg bid 5. Peripheral Neuropathy improvement of diabetes long-term Continue with current medications may want to consider changed adjunctive medications for pain control Currently taking nortriptyline Likely contributing factor to current pain symptoms. May want to consider future changes with her new PCP outpt Does not tolerate gapabentin, Lyrica not covered by insurance per pt. F/u with PCP to discuss further options 6. Anemia stable during hospitalization no reported symptoms Improving since procedure and osteomyelitis treatment 7. hyponatremia resolved 8. HTN Continue Lisinopril 10 mg dosing 8. DVT prophylaxis Total Time Total Time Spent Total Time Spent (In Minutes): 45 Discharge Plan Discharge Items Patient Disposition: Home - Home Health Services Reason For Visit: BIG TOE ON RT FT INFECTED- S/P PARTIAL AMPUTATION Discharge Diagnosis: Osteomylitis Rt Foot post surgery Condition on Discharge: Good Activity: Per Instructions section Lifting: None Bathing: Keep incision dry Sexual Activity: Wait until after follow-up appointment Exercise/Sports: Wait until after follow-up appointment Driving/Machine Use: NONe until cleared Weightbearing: Right partial Non-emergency contact: Primary Care Provider Call non-emergency contact if: you have any medication questions, your symptoms worsen, your pain is not controlled, you have a fever, your wound has increased redness and your wound has increased drainage Follow-up/Referrals: Dkaotah Romero MD [Physician] - (Per the hospitalist recommendations, you should see an preflight inspector for advanced diabetic care. Please discuss with your primary care doctor and if agreeed, please call [facility] Endocrinology office @[phone] for an appointment.) Akhil Chu DO [Surgeon] - 08/22/21 10:15 am ([facility]- WIll see Robb Staples PA-C/ Dr. Chu) Vince Vernon DO [Primary Care Provider] - 09/22/21 3:00 pm (Next available is 09/22- please call your provider if you have any change in your health.) Diet: Carb Consistent or DM2 Addtl Attending Provider Instructions: Diabetes education 1. Add Metformin to your insulin regimen. Metformin will greatly improve your Diabetes control and reduce your insulin needs fdc. 2.Balanced meals, Boost protein intake 3.Notify provider of BG values <70 or >250 4. Follow up with Endocrinology 5. Note changes in insulin dosing Addtl Air Bag Buffer Provider Instructions: ACTIVITY RECOMMENDATIONS: Limitations: Heel weight bearing only if able to tolerate. SPECIAL CARE INSTRUCTIONS: * Some drainage onto the dressing is normal and is no cause for alarm. * Some swelling is natural especially after walking. * When resting, keep your foot elevated above the level of your heart. * Call [facility] if you notice: -Increased drainage -Fever over 101 degrees F -Severe constant pain BANDAGE: * daily dressing changes as discussed in the hospital, adaptec, 4x4, kerlex and ayad. FOLLOW UP VISIT WITH DR. CHU If appointment is not already scheduled: Please call [facility] after you get home today to schedule a follow-up appointment for [address] Chu at . Pending Studies at Discharge: No Stand-Alone Forms: My [facility] fflick, Smoking Cessation Medications and DC Order Prescriptions: New ergocalciferol (vitamin D2) 1,250 mcg (50,000 unit) Capsule 50,000 unit PO Ortiz 30 Days Qty: 4 RF: 0 oxycodone 5 mg Tablet 10 mg PO Q4 PRN (Reason: pain) 5 Days Qty: 60 RF: 0 metformin 500 mg tablet 500 mg PO BID Qty: 60 RF: 0 clindamycin HCl 150 mg capsule 450 mg PO Q8H Qty: 72 RF: 0 Continued (DME) lancets [OneTouch UltraSoft Lancets] Misc See Rx Instructions .ROUTE .MEDSUPPLY Qty: 100 RF: 0 atorvastatin [Lipitor] 40 mg tablet 40 mg PO HS RF: 0 lisinopril [Zestril] 10 mg tablet 10 mg PO QAM RF: 0 lorazepam [Ativan] 1 mg Tablet 1 mg PO TID Qty: 21 RF: 0 albuterol sulfate [Proventil HFA] 90 mcg/actuation HFA aerosol inhaler 1 puff inhalation QID PRN (Reason: Shortness Of Breath) RF: 0 metoprolol succinate [Toprol XL] 50 mg tablet extended release 24 hr 50 mg PO QAM RF: 0 cyclobenzaprine 10 mg Tablet 10 mg PO TID RF: 0 aspirin [Aspirin Low Dose] 81 mg Tablet,Delayed Release (Dr/Ec) 81 mg PO QAM RF: 0 ropinirole 2 mg Tablet 4 mg PO HS RF: 0 zolpidem [Ambien] 10 mg Tablet 10 mg PO HS RF: 0 nortriptyline [Pamelor] 50 mg Capsule 100 mg PO HS RF: 0 Changed Basaglar KwikPen U-100 Insulin 100 unit/mL (3 mL) insulin pen 15 unit SUBCUT HS Qty: 1 RF: 0 insulin lispro [Humalog KwikPen Insulin] 100 unit/mL insulin pen 3 unit SUBCUT TIDM Qty: 1 RF: 0 Discontinued amoxicillin-pot clavulanate [Augmentin] 875-125 mg tablet 1 tab PO BID Qty: 20 RF: 0 Discharge Orders: Discharge Order (Routine); Ordered 08/18/21 Ordered By: Miguel Nava/Other Patient Handouts: Nutrition for Wound Healing, Managing Type 2 Diabetes Admission Data Admit Date/Time: 08/09/21 15:59 Attending Provider: Miguel Barnett Admit Provider: Sajan Allan Primary Care Provider: Vince Vernon Other Providers: Sajan Allan ; Akhil Chu ; Adonis Lin ; Sylvain Melendrez ; Esthela Curtis ; Harish Arciniega I. ; Cristhian Oconnor II ; Minda Vargas ; Dami Willard ; David Banerjee ; Dallas Polk ; [facility] ; [facility] Other Interventions: Discharge Summary Assessment (RN) Last Done: 08/18/21 17:29 Coding Level of Care Code D/C DAY MANAGEMENT >30 MINS Diagnoses Osteomyelitis of great toe of right foot M86.9 MRSA (methicillin resistant staph aureus) culture positive Z22.322 PAD (peripheral artery disease) I73.9 Diabetes mellitus type 2, uncontrolled E11.65 Peripheral neuropathy G62.9 Anemia D64.9 Hyponatremia E87.1 DVT prophylaxis Z29.9 HTN (hypertension) I10
[2021-08-18] MEDS: oxyCODONE HCL IR 5 MG TAB (IMMEDIATE RELEASE) PO PRN (11:05)
[2021-08-18] MEDS: DAPTOmycin 300 MG in SYRINGE 0 ML IV SCH (16:57)
== END 2021-08-18 18:29 | disposition home health service (06) | DRG 617 ==
LOC: ED 11:06 → SUATTDRO 15:59 → EDINP 15:59 → 3E 18:43 → 1E 08-15 15:30 → 3E 08-16 10:37
PROC: CLB.AEB (2021-08-15 11:00)

== ENCOUNTER 2021-09-02 10:40 | Inpatient (IN) ==
--- NOTE | 2021-09-01 15:27 | Anesthesiology Consultation ---
Date of Service September 01, 2021 Assessment & Plan (1) Encounter for pre-operative examination: - check BSG am DOS. - Patient not seen at PAT/no RN phone interview at time of review. Chart review from available information. Will need to review height/weight, PMHX/PSHX, hx of anesthesia issues AM DOS.Will also need travel assessment done DOS. - medical necessity per Dr. Montaño, "Patient requires surgery on 09/02/21 due to worsening infection, that has not responded to oral antibiotics. Delay in surgery could effect [sic] life and limb." Case reviewed with Dr. Truong who agreed case is medically necessary to proceed. - discharge summary [place] 08/18/2021: "...Right great toe amputation, Resection flexor hallucis longus tendon, I&D medial hindfoot, Tenosynovectomy suppurative flexor digitorum longus tendon and tenosynovectomy suppurative posterior tibial tendon POD 4, (DOS 08/12/21) dressing changed this am and packing pulled completely. wound culture MRSA, on Dapto will cont with IV Abx per primary team ortho will sign off at this time, she can f/u with dr montaño team in 12-14 days for suture removal in the office. contact us with any questions or concerns...recommendations from Orthopedics as noted above from August 14...Transition to Clindamycin 450mg po q8 for total of 14 days. last dose 08/26/2021...patient underwent angiogram to evaluate peripheral artery disease...mild non obstructive PA D reported...uncontrolled diabetes...Periphera l Neuropathy-improvement of diabetes long-term...hyponatremia resolved..." Chart Review Chart Review: Acceptable Risk for Surgery and Patient NOT seen in Pre Admission Testing History Surgery Operation Date: 09/02/21 09:35 Proposed Procedures p Right Foot Incision and Drainage Right Great Toe Amputation Site, Incision and Drainage Posteriomedial Anklse, Possible Implantation Stimulan Antibiotic Beads - Akhil Montaño DO Allergies Allergy/AdvReac Type Severity Reaction Status Date / Time morphine Allergy Severe blisters Verified 08/09/21 15:02 in mouth Sulfa (Sulfonamide Allergy Severe rash/swelli Verified 08/09/21 15:02 Antibiotics) ng vancomycin Allergy Intermediate YULIYA Verified 08/09/21 15:02 SYNDROME Medications Home Medications Medication Instructions Recorded Confirmed Last Taken aspirin 81 mg tablet,delayed 81 mg PO QAM 10/19/20 08/09/21 08/08/21 release (Aspirin Low Dose) cyclobenzaprine 10 mg tablet 10 mg PO TID 10/19/20 08/09/21 08/08/21 nortriptyline 50 mg capsule 100 mg PO HS 10/19/20 08/09/21 08/08/21 (Pamelor) ropinirole 2 mg tablet 4 mg PO HS 10/19/20 08/09/21 08/08/21 zolpidem 10 mg tablet (Ambien) 10 mg PO HS 10/19/20 08/09/21 08/08/21 lancets (OneTouch UltraSoft #100 ea 11/12/20 07/14/21 Unknown Lancets) atorvastatin 40 mg tablet (Lipitor) 40 mg PO HS 01/24/21 08/09/21 08/08/21 lisinopril 10 mg tablet (Zestril) 10 mg PO QAM 01/24/21 08/09/21 08/08/21 lorazepam 1 mg tablet (Ativan) 1 mg PO TID #21 tab 01/28/21 08/09/21 08/08/21 albuterol sulfate 90 mcg/actuation 1 puff INHALATION QID PRN 03/05/21 08/09/21 03/05/21 aerosol inhaler (Proventil HFA) metoprolol succinate 50 mg 50 mg PO QAM 03/05/21 08/09/21 08/08/21 tablet,extended release 24 hr (Toprol XL) clindamycin HCl 150 mg capsule 450 mg PO Q8H #72 cap 08/18/21 Unknown ergocalciferol (vitamin D2) 1,250 50,000 unit PO Ortiz 30 Days #4 cap 08/18/21 Unknown mcg (50,000 unit) capsule insulin glargine 100 unit/mL (3 15 unit SUBCUT HS #1 ml 08/18/21 08/09/21 08/08/21 mL) subcutaneous pen (Basaglar KwikPen U-100 Insulin) insulin lispro 100 unit/mL 3 unit SUBCUT TIDM #1 ml 08/18/21 08/09/21 08/08/21 subcutaneous pen (Humalog KwikPen (U-100) Insulin) metformin 500 mg tablet 500 mg PO BID #60 tab 08/18/21 Unknown Past Medical History Medical History (Updated 09/01/21 @ 15:56 by Najma To PA-C) 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 No issues per anesthesia postop progress note. Cellulitis Chronic back pain Depression DM2 (diabetes mellitus, type 2) IDDM, A1c 07/2021-11% Gastritis GIB (gastrointestinal bleeding) Hyperlipidemia Insulin dependent diabetes mellitus Nonobstructive atherosclerosis of coronary artery Numbness of lower extremity Peripheral neuropathy Right second toe ulcer Seizures Past Family History Family History Mother , age 63 Myocardial infarction Father , age 68 or 69 Myocardial infarction Brother S/P CABG (coronary artery bypass graft) Sister Myocardial infarction x 3; she is 57yo Past Surgical History Surgical History History of cardiac cath done at [facility]; 09/22/19; LM - mild luminal irregularities. LAD - mid 20-30%, distal with myocardial bridge & 30% stenosis. L Cx - mild luminal irregularities. RCA - proximal <30% stenosis; mid/distal vessel mild plaques. PDA - mild luminal irregularities. History of esophagogastroduodenoscopy (EGD) Social History Smoking Status: Former smoker tobacco type: cigarettes Smoking cigarettes per day: 1 PPD for 20 years Hx Alcohol Use: No Hx Substance Use: No substance use type: does not use Substance Use Type Other:: Medical Marijuana Last Used Substance: Unknown Lab Results Anesthesia Preop Results Results Anesthesia Widget: WBC 18.26 K/uL (4.8-10.8) H 09/01/21 Hgb 12.0 g/dL (12.0-16.0) 09/01/21 Hct 36.7 % (37-47) L 09/01/21 Plt 404 K/uL (130-400) H 09/01/21 Na 134 mmol/L (136-145) L 08/17/21 K 4.3 mmol/L (3.5-5.1) 08/17/21 Cl 99 mmol/L (98-107) 08/17/21 CO2 30 mmol/L (21-32) 08/17/21 BUN 9 mg/dl (7-18) 08/17/21 Creat 0.53 mg/dl (0.6-1.2) L 08/17/21 Glucose Level 119 mg/dl (70-99) H 08/17/21 POC Glucose 111 mg/dl (70-99) H 08/18/21 PT 10.0 Seconds (9.0-12.0) 08/09/21 PTT 23.1 Seconds (21.0-31.0) 08/09/21 INR 1.0 (0.9-1.1) 08/09/21 HA1c 11.1 % (4.5-5.6) H 07/15/21 Urine Color Yellow 08/11/21 Urine Appearance Clear (Clear) 08/11/21 Urine pH 6.5 (4.5-7.5) 08/11/21 Urine Specific Tillson 1.020 (1.000-1.030) 08/11/21 Urine Protein Negative (Negative) 08/11/21 Urine Glucose (UA) Negative (Negative) 08/11/21 Urine Ketones Trace (Negative) H 08/11/21 Urine Blood Negative (Negative) 08/11/21 Urine Nitrite Negative (Negative) 08/11/21 Urine Bilirubin Negative (Negative) 08/11/21 Urine Urobilinogen Negative (Negative) 08/11/21 Urine Leukocyte Esterase Negative (Negative) 08/11/21 Urine WBC (Auto) >30 /hpf (0-5) H 07/14/21 Urine RBC (Auto) 0-4 /hpf (0-4) 07/14/21 Urine Hyaline Casts (Auto) 0 /lpf (0-5) 07/14/21 Urine Epithelial Cells (Auto) >30 /lpf (0-5) H 07/14/21 Urine Bacteria (Auto) Negative (Negative) 07/14/21 Urine Yeast Present (None Prsent) A 07/14/21 SARS-CoV-2, RNA, NAAT NEGATIVE (NEGATIVE) 08/09/21 Testing Electrocardiogram Date: 09/01/21 *Unconfirmed* Sinus tachycardia, rate 109 bpm. Septal infarct, cited on or before 09/01/2021. When compared with ECG of 07/14, questionable change in initial forces of anterior leads. Chest X-Ray Date: 08/09/21 FINDINGS: PA and lateral chest radiographs are compared to study dated 03/08/2021. Correlation is made with chest CT dated 02/08/2021. The cardiomediastinal silhouette is unremarkable. The lungs and pleural spaces are clear. There is no pneumothorax. The bony thorax appears intact. IMPRESSION: No active disease in the chest. Echocardiogram Date: 01/24/21 Left ventricle is hyperdynamic Mild cLVH EF 65-70% Grade I diastolic dysfunction Left ventricular wall motion is normal Stress Test Date: 10/20/20 Pharmacologic MPHR 82% Nondiagnostic as target heart rate was not attained EF 60-65% No regional wall motion abnormalities Moderate cLVH Cardiac Catheterization Date: 09/22/19 EF 55-60% Abdominal angiography: supra and infra renal abdominal aorta appears normal caliber without evidence of aneurysm or dissection Left main: mild luminal irregularities LAd: 20-30% diffuse mild disease, distal LAD has mild intramyocardial bridge and mild disease of up to 30% Cx: diffuse luminal irregularities, scattered luminal irregularities RCA: diffuse mild calcification and mild disease less than 30% conclusion: mild nonocclusive coronary disease Normal LV systolic function without wall motion abnormality Normal abdominal aorta without evidence of aneurysm or dissection Other Testing Right foot MRI 08/10/2021 IMPRESSION: 1. MR findings characteristic of osteomyelitis of the proximal phalanx of the great toe. 2. No evidence for osteomyelitis involving the first metatarsal. 3. Diffuse edema surrounding the great toe representing cellulitis with no focal abscess. 4. Subcutaneous edema extends along the dorsum of the foot as well. Aorta with runoff CTA 07/14/2021 IMPRESSION: 1. Moderate aortoiliac and bilateral lower extremity atherosclerotic plaque. 2. Mild stenosis of the distal right external iliac artery. Mild to moderate multifocal stenoses within the bilateral superficial femoral arteries. 3. Suboptimal evaluation of the bilateral calf vessels, as described above. Severe stenosis of the proximal left anterior tibial artery and moderate stenoses of the proximal right anterior tibial artery. Further evaluation with lower extremity arterial Doppler ultrasound is recommended. 4. No acute process within the abdomen or pelvis. 5. Mildly enlarged right inguinal lymph node which is likely reactive. Addendum: Note is made of a small 6 mm rim-enhancing subcutaneous fluid collection along the plantar medial aspect of the right first metatarsophalangeal joint. There is adjacent infiltration. This is consistent with a small abscess. There is no soft tissue gas. There is no CT evidence for acute osteomyelitis within the right first toe. Duplex scan lower extremity artery 07/14/2021 IMPRESSION: Patent arterial flow bilaterally. However, there is evidence for high-grade stenosis bilaterally as described above. Cervical spine MRI 02/10/2021 IMPRESSION: 1. The cervical spinal cord is normal in morphology and signal intensity. 2. Minimal spondylotic change as above with no central canal stenosis identified. 3. No destructive bony process is seen. Chest CTA 02/08/2021 IMPRESSION: 1. No acute intrathoracic findings 2. No evidence of acute pulmonary embolism 3. No evidence of focal pulmonary consolidation 4. Pulmonary emphysema
--- NOTE | 2021-09-02 09:08 | History & Physical Report ---
Date of Service September 02, 2021 Assessment & Plan (1) Cellulitis of right foot: Plan: The patient will be scheduled for a right foot I&D great toe amputation site, I&D posterior medial ankle, possible implantation Stimulan antibiotic beads for 09/02/2021. All potential risks, benefits, complications, alternatives, and rehab have been discussed with the patient and she wishes to proceed. We will plan for new cultures intraoperatively to determine antibiotic choice. Will restart aspirin postop for postoperative DVT prophylaxis. (2) Wound dehiscence, surgical: (3) Diabetes mellitus type 2, uncontrolled: History of Present Illness Chief Complaint: Right foot pain Primary Care Provider: Vince Vernon, DO This is a patient had undergone a great toe amputation on the right foot as well as an I&D of an abscess at the posterior medial aspect of the ankle approximately 3 weeks ago. She was seen yesterday in the office with increasing pain and increasing erythema. She is now being set up for repeat I&D of both sites. Allergies Allergy/AdvReac Type Severity Reaction Status Date / Time morphine Allergy Severe blisters Verified 08/09/21 15:02 in mouth Sulfa (Sulfonamide Allergy Severe rash/swelli Verified 08/09/21 15:02 Antibiotics) ng vancomycin Allergy Intermediate YULIYA Verified 08/09/21 15:02 SYNDROME Home Medications Medication Instructions Recorded Confirmed Type aspirin 81 mg tablet,delayed 81 mg PO QAM 10/19/20 08/09/21 History release (Aspirin Low Dose) cyclobenzaprine 10 mg tablet 10 mg PO TID 10/19/20 08/09/21 History nortriptyline 50 mg capsule 100 mg PO HS 10/19/20 08/09/21 History (Pamelor) ropinirole 2 mg tablet 4 mg PO HS 10/19/20 08/09/21 History zolpidem 10 mg tablet (Ambien) 10 mg PO HS 10/19/20 08/09/21 History lancets (OneTouch UltraSoft #100 ea 11/12/20 07/14/21 History Lancets) atorvastatin 40 mg tablet (Lipitor) 40 mg PO HS 01/24/21 08/09/21 History lisinopril 10 mg tablet (Zestril) 10 mg PO QAM 01/24/21 08/09/21 History lorazepam 1 mg tablet (Ativan) 1 mg PO TID #21 tab 01/28/21 08/09/21 Rx albuterol sulfate 90 mcg/actuation 1 puff INHALATION QID PRN 03/05/21 08/09/21 History aerosol inhaler (Proventil HFA) metoprolol succinate 50 mg 50 mg PO QAM 03/05/21 08/09/21 History tablet,extended release 24 hr (Toprol XL) clindamycin HCl 150 mg capsule 450 mg PO Q8H #72 cap 08/18/21 Rx ergocalciferol (vitamin D2) 1,250 50,000 unit PO Ortiz 30 Days #4 cap 08/18/21 Rx mcg (50,000 unit) capsule insulin glargine 100 unit/mL (3 15 unit SUBCUT HS #1 ml 08/18/21 08/09/21 Rx mL) subcutaneous pen (Basaglar KwikPen U-100 Insulin) insulin lispro 100 unit/mL 3 unit SUBCUT TIDM #1 ml 08/18/21 08/09/21 Rx subcutaneous pen (Humalog KwikPen (U-100) Insulin) metformin 500 mg tablet 500 mg PO BID #60 tab 08/18/21 Rx Past Med/Surg History Medical History (Updated 09/02/21 @ 09:01 by Robb Guzman PA-C) 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 No issues per anesthesia postop progress note. Cellulitis Chronic back pain Depression DM2 (diabetes mellitus, type 2) IDDM, A1c 07/2021-11% Gastritis GIB (gastrointestinal bleeding) Hyperlipidemia Insulin dependent diabetes mellitus Nonobstructive atherosclerosis of coronary artery Numbness of lower extremity Peripheral neuropathy Right second toe ulcer Seizures Surgical History History of cardiac cath done at [facility]; 09/22/19; LM - mild luminal irregularities. LAD - mid 20-30%, distal with myocardial bridge & 30% stenosis. L Cx - mild luminal irregularities. RCA - proximal <30% stenosis; mid/distal vessel mild plaques. PDA - mild luminal irregularities. History of esophagogastroduodenoscopy (EGD) Family History Mother , age 63 Myocardial infarction Father , age 68 or 69 Myocardial infarction Brother S/P CABG (coronary artery bypass graft) Sister Myocardial infarction x 3; she is 57yo Social History Smoking Status: Former smoker Tobacco Type: Cigarettes packs per day: 1; Years Smoked: 20; Cigarettes Per Day: 1 PPD for 20 years; Second Hand Exposure: No; Hx Alcohol Use: No Hx Substance Use: No Preferred Language: Malaysian Communication Ability: Effective Emu Farmer Required: No Beliefs That Will Affect Care: None marital status: Current Living Situation: Spouse 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; 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 How many Children do You have: 3 other: raising a grandchild as well; lives in [facility] Safe at Home: Yes Assistive Devices: Special Shoe Physical Exam Constitutional: well developed and well nourished; no acute distress ENMT: external ear and nose normal, oropharynx normal Neck: trachea midline Respiratory: normal respiratory effort, lungs clear to auscultation Cardiovascular: Rate/Rhythm: regular rate and regular rhythm Gastrointestinal (Abdomen): normal bowel sounds, soft, nontender, no hepatosplenomegaly Musculoskeletal: Ankle: + skin erythema and + joint line tenderness (ankle) (Right foot great toe amputation site, posterior medial ankle); no ecchymosis Skin: no rashes, warm and dry Neurologic: + abnormal touch/pain/proprioception Psychiatric: A+Ox3, euthymic affect Speech: normal rate/rhythm/volume of speech Lymphatic: no cervical or axillary lymphadenopathy
[2021-09-02] MEDS ORDERED: ONDANSETRON INJ 2 MG/ML 2 ML VIAL ONE ×2 (12:36→14:12)
--- NOTE | 2021-09-02 12:41 | History & Physical Bridge Note ---
Date of Service September 02, 2021 History & Physical Bridge Note I have examined the patient, reviewed the History & Physical and in the interval since the performance of the History & Physical I have noted the following changes of clinical significance: no changes noted
[2021-09-02] MEDS ORDERED: fentaNYL citrate 100 MCG/2 ML VIAL ONE ×2 (13:08→14:11)
[2021-09-02] MEDS ORDERED: MIDAZOLAM HCL 1 MG/ML 2ML VIAL ONE (13:08)
[2021-09-02] MEDS ORDERED: HYDROmorphone INJ 1 MG/ML SYRINGE IV PRN (13:38)
[2021-09-02] MEDS ORDERED: ONDANSETRON INJ 2 MG/ML 2 ML VIAL IV PRN (13:38)
[2021-09-02] MEDS ORDERED: ATROPINE SULFATE 0.1 MG/ML 10ML SYR IV PRN (13:38)
[2021-09-02] MEDS ORDERED: ePHEDrine sulfate 50 MG/ML AMP IV PRN (13:38)
[2021-09-02] MEDS ORDERED: DAPTOmycin 300 MG in SYRINGE 0 ML IV ONE (14:00)
[2021-09-02] MEDS ORDERED: GENTAMICIN SULFATE 40 MG/ML 2 ML VIAL ONE (14:04)
[2021-09-02] MEDS ORDERED: ceFAZolin 330 MG/ML 1 GM VIAL ONE (14:04)
[2021-09-02] MEDS ORDERED: LIDOCAINE 2% 2 ML VIAL/AMP(20MG/ML) INFIL ONE (14:12)
[2021-09-02] MEDS ORDERED: PROPOFOL IV EMULSION 10 MG/ML 20 ML VIAL IV ONE (14:12)
[2021-09-02] MEDS ORDERED: ePHEDrine sulfate 50 MG/ML SYR ONE (14:16)
[2021-09-02] MEDS ORDERED: TOBRAMYCIN SULF 40 MG/ML 2 ML VIAL ONE (14:18)
[2021-09-02] MEDS ORDERED: ePHEDrine sulfate 50 MG/ML AMP ONE (14:37)
[2021-09-02] MEDS ORDERED: PHENYLEPHRINE HCL 10 MG/ML VIAL ONE (14:41)
[2021-09-02] MEDS ORDERED: HYDROmorphone INJ 2 MG/ML SYR/VIAL ONE (15:14)
[2021-09-02] MEDS: fentaNYL citrate 100 MCG/2 ML VIAL IV PRN ×3 (15:35→16:07)
--- NOTE | 2021-09-02 16:20 | Anesthesiology Progress Note ---
Date of Service September 02, 2021 Anesthesia Post Procedure Vital Signs Vital Signs: Temp Pulse Pulse Resp BP Pulse Ox 09/02/21 16:15 103 H 15 140/60 94 09/02/21 16:05 102 H 13 143/61 H 95 09/02/21 15:55 101 H 12 116/67 94 09/02/21 15:45 105 H 16 98/72 L 96 09/02/21 15:35 98 H 13 119/66 98 09/02/21 15:25 100 H 16 106/59 L 99 09/02/21 15:19 36.3 C L 102 H 14 137/83 98 09/02/21 11:21 36.3 C L 107 H 18 146/82 H 98 Pain Intensity Right Foot: Pain Intensity: 4 Transfer of Care Handoff Completed per policy Notes Mental Status: alert / awake / arousable and participated in evaluation Patient Amnestic to Procedure: Yes Nausea / Vomiting: adequately controlled Pain: adequately controlled Airway Patency, RR, SpO2: stable & adequate BP & HR: stable & adequate Hydration State: stable & adequate Anesthetic Complications: no major complications apparent
[2021-09-02] MEDS ORDERED: MAGNESIUM HYDROXIDE SUSP 30 ML UDC PO PRN (16:57)
[2021-09-02] MEDS ORDERED: bisacodyL 10 MG SUPP PR PRN (16:57)
[2021-09-02] MEDS ORDERED: NALOXONE HCL 0.4 MG/1 ML VIAL/CARP IV PRN (16:57)
[2021-09-02] MEDS ORDERED: ALBUTEROL HFA 8 GM INHALER INH PRN (16:57)
[2021-09-02] MEDS ORDERED: NON-FORMULARY MEDICATION (Insulin Lispro [Humalog Kwikpen Insulin] 100 unit/mL insulin pen SQ SCH (17:00)
--- NOTE | 2021-09-02 17:24 | Post Operative Brief Note ---
Immediate Post Op Note v1 Date of Surgery September 02, 2021 Pre & Post Diagnosis Operation Date: 09/02/21 09:35 Pre-Op Diagnosis: (1) Right foot abscess with forefoot (2) surgical wound dehiscence great toe amputation flap (3) surgical wound dehiscence medial ankle incision site (4) septic tenosynovitis flexor hallucis longus tendon (5) septic tenosynovitis flexor digitorum longus tendon (6) septic tenosynovitis posterior tibial tendon (7) cellulitis of right foot: Post-Op Diagnosis: (1) Right foot abscess with forefoot (2) surgical wound dehiscence great toe amputation flap (3) surgical wound dehiscence medial ankle incision site (4) septic tenosynovitis flexor hallucis longus tendon (5) septic tenosynovitis flexor digitorum longus tendon (6) septic tenosynovitis posterior tibial tendon (7) cellulitis of right foot: I identified the patient and participated in the time-out.: Yes Procedure Operation Date: 09/02/21 09:35 Actual Procedures p Right Foot revision amputation great toe, irrigation and debridement right Great Toe Amputation Site, Incision and Drainage Medial Ankle, tenosynovectomy flexor hallucis longus tendon, tenosynovectomy flexor digitorum longus tendon, tenosynovectomy posterior tibial tendon, implantation Stimulan Antibiotic Beads(Right) - Akhil Montaño DO Surgeon Akhil Montaño DO Sterile Processing Technologist Kaushik Kim PA-C Estimated Blood Loss 20 Findings Consistent with Post-Op Diagnosis Specimens Aerobic, anaerobic, Gram stain great toe amputation site Aerobic, anaerobic, Gram stain medial ankle abscess/tenosynovitis Drains Other (1/2 inch iodoform gauze x2 separate sites) Anesthesia Type General Regional Complications none Disposition Accompanied Patient To Recovery: Yes
[2021-09-02] MEDS: ONDANSETRON INJ 2 MG/ML 2 ML VIAL IV PRN (17:46)
[2021-09-02] MEDS: oxyCODONE HCL IR 5 MG TAB (IMMEDIATE RELEASE) PO PRN ×2 (17:46→21:46)
[2021-09-02] MEDS: SODIUM CHLORIDE 0.9% 1000ML 1,000 ML IV SCH (17:49)
[2021-09-02] MEDS ORDERED: GLUCOSE 40% GEL 15 GM TUBE PO PRN (18:00)
[2021-09-02] MEDS ORDERED: DEXTROSE 50% 50 ML SYRINGE IV PRN (18:00)
[2021-09-02] MEDS ORDERED: GLUCAGON FOR INJ 1 MG VIAL SQ PRN (18:00)
[2021-09-02] MEDS ORDERED: CARBOHYDRATES FOR HYPOGLYCEMIA PO PRN (18:00)
[2021-09-02] MEDS ORDERED: GLUCOSE 10 TABS/TUBE PO PRN (18:00)
--- NOTE | 2021-09-02 18:08 | Hospitalist Consultation ---
Date of Consultation September 02, 2021 Assessment & Plan (1) Osteomyelitis of great toe of right foot: With recurrent infections despite surgical amputation and debridement. Prior surgery was 08/12/2021. She was on clindamycin for 2 weeks after surgery and reports worsening infection after finishing that course. - S/p amputation revision, I&D of great toe amputation site, I&D of medial ankle, tenosynovectomies, and bead implantation with Dr. Montaño on 09/02/2021. - Start daptomycin per prior cultures - Follow culture data from today's surgery - Post-op care per primary team - Do not at this point see the need for ID consult. Patient will need prolonged course of IV antibiotics. Once culture data has returned, will advise based off that. (2) Diabetes mellitus type 2, uncontrolled: A1c was 11.1% in 07/2021. - Hold metformin - Continue Lantus 15 units SQ HS -> Patient eating dinner when I saw her, so I think that will be safe. - Sliding scale insulin (3) PAD (peripheral artery disease): Seen by Dr. Lin with angiography on 08/15/2021 showing good blood flow to the wound bed. - Continue ASA - Hold statin while on daptomycin (4) Anemia: Baseline hgb ~11 - 13. Presently at 12.0. Likely from chronic disease. - Monitor (5) HTN (hypertension): BP presently 145/80 after surgery. - Continue home lisinopril, metoprolol (6) Depression: With anxiety. - Continue home nortriptyline & lorazepam (but will make lorazepam PRN instead of standing) (7) Insomnia: Reports she takes per lorazepam and Ambien both at the same time. - Continue both PRN (8) DVT prophylaxis: Defer to primary team, but once safe, would recommend Lovenox ppx once cleared by surgery. History of Present Illness Attending Physician: Akhil Montaño, DO History of Present Illness 56yo F w/ hx of anxiety and DM2 who presents with recurrent right foot infection. Per the patient, she was healing ok at home. She finished her clindamycin about 1 week after returning home. The foot felt well at that time. About 2 days after finishing antibiotics, she reports the site of her prior surgery began to ooze again. She also noted increased pain in the toe. No fevers/chills, no dizziness, no lightheadedness, no chest pain, no shortness of breath. Allergies Allergy/AdvReac Type Severity Reaction Status Date / Time morphine Allergy Severe blisters Verified 09/02/21 11:09 in mouth Sulfa (Sulfonamide Allergy Severe rash/swelli Verified 09/02/21 11:09 Antibiotics) ng vancomycin Allergy Intermediate YULIYA Verified 09/02/21 11:09 SYNDROME Home Medications Medication Instructions Recorded Confirmed Type aspirin 81 mg tablet,delayed 81 mg PO QPM 10/19/20 09/02/21 History release (Aspirin Low Dose) cyclobenzaprine 10 mg tablet 10 mg PO TID 10/19/20 09/02/21 History nortriptyline 50 mg capsule 100 mg PO HS 10/19/20 09/02/21 History (Pamelor) ropinirole 2 mg tablet 4 mg PO HS 10/19/20 09/02/21 History zolpidem 10 mg tablet (Ambien) 10 mg PO HS 10/19/20 09/02/21 History lancets (OneTouch UltraSoft #100 ea 11/12/20 07/14/21 History Lancets) atorvastatin 40 mg tablet (Lipitor) 40 mg PO HS 01/24/21 09/02/21 History lisinopril 10 mg tablet (Zestril) 10 mg PO QAM 01/24/21 09/02/21 History lorazepam 1 mg tablet (Ativan) 1 mg PO TID #21 tab 01/28/21 09/02/21 Rx albuterol sulfate 90 mcg/actuation 1 puff INHALATION QID PRN 03/05/21 09/02/21 History aerosol inhaler (Proventil HFA) metoprolol succinate 50 mg 50 mg PO QAM 03/05/21 09/02/21 History tablet,extended release 24 hr (Toprol XL) ergocalciferol (vitamin D2) 1,250 50,000 unit PO Ortiz 30 Days #4 cap 08/18/21 09/02/21 Rx mcg (50,000 unit) capsule insulin glargine 100 unit/mL (3 15 unit SUBCUT HS #1 ml 08/18/21 09/02/21 Rx mL) subcutaneous pen (Lillian Willard U-100 Insulin) insulin lispro 100 unit/mL 3 unit SUBCUT TIDM #1 ml 08/18/21 09/02/21 Rx subcutaneous pen (Humalog KwikPen (U-100) Insulin) metformin 500 mg tablet 500 mg PO BID #60 tab 08/18/21 09/02/21 Rx azithromycin 250 mg tablet 250 mg PO BID 09/02/21 09/02/21 History (Zithromax) oxycodone-acetaminophen 5 mg-325 1 tab PO Q6H PRN 09/02/21 09/02/21 History mg tablet (Percocet) Patient History Medical History (Updated 09/02/21 @ 18:25 by Alexander Leonard MD) 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 No issues per anesthesia postop progress note. Cellulitis Chronic back pain Depression DM2 (diabetes mellitus, type 2) IDDM, A1c 07/2021-11% Gastritis GIB (gastrointestinal bleeding) Hyperlipidemia Insulin dependent diabetes mellitus Nonobstructive atherosclerosis of coronary artery Numbness of lower extremity Peripheral neuropathy Right second toe ulcer Seizures Surgical History History of cardiac cath done at [facility]; 09/22/19; LM - mild luminal irregularities. LAD - mid 20-30%, distal with myocardial bridge & 30% stenosis. L Cx - mild luminal irregularities. RCA - proximal <30% stenosis; mid/distal vessel mild plaques. PDA - mild luminal irregularities. History of esophagogastroduodenoscopy (EGD) Family History Mother , age 63 Myocardial infarction Father , age 68 or 69 Myocardial infarction Brother S/P CABG (coronary artery bypass graft) Sister Myocardial infarction x 3; she is 57yo Social History Smoking Status: Former smoker Tobacco Type: Cigarettes packs per day: 1; Years Smoked: 20; Cigarettes Per Day: 1 PPD for 20 years; Second Hand Exposure: No; Hx Alcohol Use: No Hx Substance Use: Yes Last Used Substance: Unknown Last Used Substance Other:: couple weeks ago Substance Use Type Other:: Medical Marijuana Preferred Language: Georgian Communication Ability: Effective Welder Apprentice Arc Required: No Beliefs That Will Affect Care: None marital status: Current Living Situation: Spouse 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; 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 How many Children do You have: 3 Other Information That Helps Us Care for You: No other: raising a grandchild as well; lives in [place] Feels Safe at Home: Yes Safety Concerns: Feels Safe At This Time Assistive Devices: None Review of Systems Review of Systems: All systems reviewed & are unremarkable except as noted in HPI & below Physical Exam Constitutional: WD/WN, vitals as above Eyes: EOM intact bilaterally; no conjunctival abnormality ENMT: external ear and nose normal, oropharynx normal Neck: trachea midline, no thyromegaly normal visual inspection Respiratory: normal respiratory effort, lungs clear to auscultation no respiratory distress Cardiovascular: RRR, no murmur, no edema Gastrointestinal (Abdomen): Inspection/Auscultation: abdomen normal to inspection; abdomen not distended Musculoskeletal: no cyanosis or clubbing, extremities motor strength 5/5 Extremities: extremities normal to inspection (Right foot bandaged) Skin: no rashes, warm and dry Neurologic: moves all extremities and awake Psychiatric: Orientation: alert, oriented to person and cooperative Results & Data Results & Data ([facility]) Vital Signs (Past 12 Hours) Vital Signs Temp Pulse Pulse Resp BP Pulse Ox 09/02/21 17:50 36.8 C 102 H 16 147/78 H 94 09/02/21 17:16 36.4 C L 98 H 15 148/68 H 92 09/02/21 16:45 36.7 C 98 H 18 149/69 H 92 09/02/21 16:35 99 H 12 134/58 L 94 09/02/21 16:25 36.4 C L 100 H 15 115/66 94 09/02/21 16:15 103 H 15 140/60 94 09/02/21 16:05 102 H 13 143/61 H 95 09/02/21 15:55 101 H 12 116/67 94 09/02/21 15:45 105 H 16 98/72 L 96 09/02/21 15:35 98 H 13 119/66 98 09/02/21 15:25 100 H 16 106/59 L 99 09/02/21 15:19 36.3 C L 102 H 14 137/83 98 01/21/22 11:21 36.3 C L 107 H 18 146/82 H 98 PG Care Time/CCT Total # of Minutes Spent Total Time Spent with Patient: Total time spent is greater than 50% in coordination of care (as documented) at patient's floor/unit and/or counseling patient: Coding Level of Care Code 79613 Inpt Consult Level 5 Diagnoses Osteomyelitis of great toe of right foot M86.9 Diabetes mellitus type 2, uncontrolled E11.65 PAD (peripheral artery disease) I73.9 Anemia D64.9 HTN (hypertension) I10 Depression F32.9 Insomnia G47.00 DVT prophylaxis Z29.9
[2021-09-02] MEDS: HYDROmorphone INJ 0.5 MG/0.5 ML SYR IV PRN ×2 (19:26→23:30)
[2021-09-02] MEDS: LORazepam 1 MG TAB PO PRN (20:30)
[2021-09-02] MEDS: ASPIRIN 81 MG ECTAB PO SCH (20:31)
[2021-09-02] MEDS: DOCUSATE SODIUM 100 MG CAP PO SCH (20:31)
[2021-09-02] MEDS: NORTRIPTYLINE HCL 25 MG CAP PO SCH (20:32)
[2021-09-02] MEDS: rOPINIRole HCL 2 MG TABLET PO SCH (20:32)
[2021-09-02] MEDS ORDERED: PROMETHAZINE HCL 25 MG/20 ML UDP PO PRN (20:39)
[2021-09-02] MEDS ORDERED: CYCLOBENZAPRINE HCL 10 MG TAB PO SCH (21:00)
[2021-09-02] MEDS ORDERED: ZOLPIDEM TARTRATE 10 MG TAB PO SCH (21:00)
[2021-09-02] MEDS ORDERED: metFORMIN HCL 500 MG TAB PO SCH (21:00)
[2021-09-02] MEDS ORDERED: LORazepam 1 MG TAB PO SCH (21:00)
[2021-09-02] MEDS ORDERED: ATORVASTATIN 40 MG TAB PO SCH (21:00)
--- NOTE | 2021-09-02 21:12 | Operative Report (OR) ---
DATE OF PROCEDURE: 09/02/2021 PREOPERATIVE DIAGNOSES: 1. Right foot abscess of the forefoot. 2. Dehiscence of the distal great toe amputation incision. 3. Dehiscence of medial ankle wound. 4. Septic tenosynovitis of the flexor hallucis longus. 5. Septic tenosynovitis of the flexor digitorum longus. 6. Septic tenosynovitis of the posterior tibial tendon. PROCEDURE: 1. Right foot revision amputation of the great toe. 2. Irrigation and debridement of right medial ankle wound dehiscence. 3. Tenosynovectomy of the flexor hallucis longus. 4. Tenosynovectomy of flexor digitorum longus. 5. Tenosynovectomy of the posterior tibial tendon. 6. Implantation of Stimulan antibiotic beads in the great toe incision and also the medial ankle inc ision. SURGEON: Akhil Montaño DO. REGISTERED PRIVATE DUTY NURSE: Kaushik Kim PA-C who was present for patient positioning, sterile prep and drape, management of retractors and instruments. He was present through the critical portions of the case i ncluding wound closure, application of sterile dressing and transport of the patient to recovery. ANESTHESIA: General, regional. SPECIMENS: Aerobic, anaerobic, Gram stain from the great toe and aerobic, anaerobic, Gram stain from the medial ankle. DRAINS: One-half inch iodoform gauze drains at the distal great toe and the medial ankle. COMPLICATIONS: None. BLOOD LOSS: 3 mL. PERTINENT HISTORY: This is a 56-year-old female who had prior osteomyelitis of the right great toe, underwent amputation, developed a secondary abscess on the medial hindfoot. Had prior incision and dr darling, was on antibiotics orally, discharged home and through the recommendation of the infectious d isease mental hygiene consultant, recommended to continue on oral antibiotics rather than IV antibiotics. The patie nt was then noticing increasing redness, swelling and cellulitis of the right great toe and medial an kle with continued pain. The patient presented to the office yesterday, she was seen and evaluated a nd noted to have dehiscence of the great toe incision as well as along the medial ankle with recurren t local fluid collection. The patient was then scheduled for surgery as indicated. All potential risks, benefits, complications, alternatives, rehab potential for incomplete relief of symptoms, need for further surgery, DVT, PE, , persistent pain, swelling, scarring, weakness, ne urovascular injury, wound complications, need for further surgery or amputation was discussed with th e patient. The patient decided to proceed with the procedure as indicated. DESCRIPTION OF PROCEDURE: The patient was taken to the operative suite and placed supine on the oper ating room table. After review of consent and identification of proper site, the patient was anesthe tized, LMA was placed. The patient had a tourniquet applied high on the right thigh over cast paddin g. Right lower extremity was then sterilely prepped and draped in the usual sterile fashion, elevate d and exsanguinated with an Esmarch bandage, and an Esmarch tourniquet applied over sterile surgical towel at the level of the ankle. Next, a hemostat and scissors were used to remove all sutures in the great toe and in the medial ankl e. There was noted to be cellulitis, inflammation, increased warmth of the great toe and the medial ankle consistent with infection. After removal of the sutures, there was noted to be purulent materi al in the distal great toe. Aerobic, anaerobic, Gram stain was then obtained and then same similar f eatures along the medial ankle incision dehiscence site, there was noted to be septic-appearing fluid , which was then cultured for aerobic, anaerobic, Gram stain. Next, attention was then directed toward the great toe, at which point, a 15 blade was then used to o pen the distal flap over the great toe amputation site. The wound edges were then sharply debrided w ith a 15 blade scalpel and a curette. Next, a rongeur was then used to remove any devitalized tissue . The flaps were revised and the base of the amputation site was then debrided with a rongeur includ ing the periarticular soft tissues surrounding the amputated great toe site. Next, pulsatile lavage was then used to lavage this site until clear. Next, attention was directed toward the medial ankle and the area of wound dehiscence was noted with some local skin loss. The skin was then opened including deep soft tissue with tenotomy scissors. T he posterior tibial tendon was then identified and noted to have septic tenosynovitis. Tenosynovecto my was then performed with a rongeur and the tendon was then retracted. The flexor digitorum longus tendon was then identified and noted to have septic tenosynovitis. Tenosynovectomy was then performe d with the tenotomy scissors, forceps and rongeur until septic tenosynovitis was cleared. Aerobic, a naerobic, Gram stain was then harvested from the medial ankle site. Then, the flexor hallucis longus tendon was then identified and noted to have septic tenosynovitis an d a tenosynovectomy was then performed with the forceps, tenotomy scissor and rongeur. Once this was completed, any devitalized soft tissue was then resected using a rongeur. The wound dehiscence site s were then copiously irrigated with pulse lavage with 1 gram of Ancef and this was then repeated at the great toe site. Next, top gloves and top sheet were changed and then Stimulan antibiotic beads were created using a c ombination of gentamicin and tobramycin. The beads were then impacted into the distal soft tissue fl ap of the great toe amputation site and then the antibiotic beads were also placed along the medial a spect of the ankle surrounding the tendons, FHL, FDL and posterior tibial tendons. Next, full thickness closure was performed over 1/2 inch iodoform gauze drains at the great toe and t he medial ankle performed with interrupted 3-0 nylon sutures. The sterile compressive dressing was a pplied consisting of Xeroform gauze, sterile 4 x 4's, sterile cast padding, Mikey wrap and an ABD pad. The tourniquet was released. The patient was awakened and taken to recovery in stable condition. Job ID: [id number]
--- NOTE | 2021-09-02 21:33 | Electrocardiogram Report ---
Test Reason : Blood Pressure : / mmHG Vent. Rate : 102 BPM Atrial Rate : 102 BPM P-R Int : 152 ms QRS Dur : 088 ms QT Int : 340 ms P-R-T Axes : 059 056 071 degrees QTc Int : 443 ms Sinus tachycardia Possible Left atrial enlargement Possible Septal infarct (cited on or before 01-SEP-2021) Early repolarization Abnormal ECG When compared with ECG of 01-SEP-2021 15:07, No significant change was found Confirmed by Andre Hinojosa ([id number]) on 09/02/2021 9:33:17 PM Referred By: Akhil Montaño Confirmed By:Andre Hinojosa
[2021-09-02] MEDS: INSULIN ASPART PER UNIT SC SCH (21:37)
[2021-09-02] MEDS: INSULIN GLARGINE SOLOSTAR 100 UNITS/ML 3 ML PEN SQ SCH (21:38)
[2021-09-02] MEDS: ZOLPIDEM TARTRATE 10 MG TAB PO PRN (21:38)
[2021-09-02] MEDS: ACETAMINOPHEN 500 MG TAB PO SCH (21:38)
[2021-09-03] MEDS: ONDANSETRON INJ 2 MG/ML 2 ML VIAL IV PRN ×3 (02:24→17:27)
[2021-09-03] MEDS: oxyCODONE HCL IR 5 MG TAB (IMMEDIATE RELEASE) PO PRN ×4 (02:24→23:47)
[2021-09-03] MEDS: HYDROmorphone INJ 0.5 MG/0.5 ML SYR IV PRN ×4 (04:32→17:28)
[2021-09-03] MEDS: SODIUM CHLORIDE 0.9% 1000ML 1,000 ML IV SCH (04:34)
[2021-09-03] MEDS: ACETAMINOPHEN 500 MG TAB PO SCH ×3 (06:25→21:14)
[2021-09-03 07:21] LABS: Hemoglobin 9.9 g/dL (12.0-16.0); Mean Corpuscular Hemoglobin 26.8 pg (25-34); Mean Corpuscular Hgb Conc 31.9 g/dL (32-36); Mean Platelet Volume 9.4 fL (7.4-10.4); Platelet Count 338 K/uL (130-400); RDW Standard Deviation 46.4 fL (36.4-46.3); Red Blood Count 3.69 M/uL (4.2-5.4); White Blood Count 12.22 K/uL (4.8-10.8)
[2021-09-03 07:45] LABS: Albumin Globulin Ratio 1.1 (0.9-2); Albumin Level 3.4 gm/dl (3.4-5.0); BUN Creatinine Ratio 23.1 (10-20); Bilirubin,Total 0.5 mg/dl (0.2-1.0); Calcium 8.4 mg/dl (8.5-10.1); Creatinine Clr Calc Pharmacy 142.5 ml/min; Est GFR (African American) 135.1 ml/min; Est GFR (Non-African American) 116.6 ml/min; Magnesium 1.6 mg/dl (1.7-2.4); Potassium 3.7 mmol/L (3.5-5.1); Total Protein 6.4 gm/dl (6.0-8.3)
--- NOTE | 2021-09-03 08:32 | Orthopedic Progress Note ---
Date of Service September 03, 2021 Assessment & Plan (1) Wound dehiscence, surgical: Plan: 56 yo female stable POD #1 revision right great toe amp, I&D medial ankle wound, placement Stimulan beads 1. Med management- cont IV abx 2. DVT prophylaxis- ASA, SCDs 3. PT/OT 4. D/C planning- Admission and Anticipated Discharge Date Admission Date: September 02, 2021 Subjective Pt resting in bed, complains of pain overnight, improved now Physical Exam Physical Exam: Dressing intact right foot/ankle Results & Data ([facility]) Vital Signs (Past 12 Hours) Vital Signs Temp Pulse Pulse Resp BP BP Pulse Ox 09/03/21 07:48 36.6 C 102 H 18 171/73 H 98 09/03/21 06:16 36.6 C 99 H 16 121/77 98 09/03/21 02:08 36.6 C 96 H 16 157/74 H 95 09/02/21 22:21 36.5 C 100 H 16 164/75 H 97 Laboratory Results 09/03/21 09/03/21 09/03/21 Range/Units 08:15 06:41 06:41 WBC 12.22 H (4.8-10.8) K/uL RBC 3.69 L (4.2-5.4) M/uL Hgb 9.9 L (12.0-16.0) g/dL Hct 31.0 L (37-47) % MCV 84.0 (80-100) fL MCH 26.8 (25-34) pg MCHC 31.9 L (32-36) g/dL RDW Std Deviation 46.4 H (36.4-46.3) fL RDW Coeff of Maria Del Carmen 15.0 H (11.5-14.5) % Plt Count 338 (130-400) K/uL MPV 9.4 (7.4-10.4) fL Sodium 135 L (136-145) mmol/L Potassium 3.7 (3.5-5.1) mmol/L Chloride 103 (98-107) mmol/L Carbon Dioxide 27 (21-32) mmol/L Anion Gap 5 (3-11) BUN 9 (6-23) mg/dl Creatinine 0.39 L (0.6-1.2) mg/dl Est Cr Clr Drug Dosing 142.5 ml/min Est GFR ( Amer) 135.1 ml/min Est GFR (Non-Af Amer) 116.6 ml/min BUN/Creatinine Ratio 23.1 H (10-20) Glucose 126 H (70-99(Fasting)) mg/dl POC Glucose 132 H (70-99) mg/dl Calcium 8.4 L (8.5-10.1) mg/dl Magnesium 1.6 L (1.7-2.4) mg/dl Total Bilirubin 0.5 (0.2-1.0) mg/dl AST 6 L (13-39) U/L ALT 9 (7-52) U/L Alkaline Phosphatase 92 (34-104) U/L Total Protein 6.4 (6.0-8.3) gm/dl Albumin 3.4 (3.4-5.0) gm/dl Globulin 3.0 (2.5-4.0) gm/dl Albumin/Globulin Ratio 1.1 (0.9-2) 09/02/21 09/02/21 09/02/21 Range/Units 20:51 17:12 15:21 WBC (4.8-10.8) K/uL RBC (4.2-5.4) M/uL Hgb (12.0-16.0) g/dL Hct (37-47) % MCV (80-100) fL MCH (25-34) pg MCHC (32-36) g/dL RDW Std Deviation (36.4-46.3) fL RDW Coeff of Maria Del Carmen (11.5-14.5) % Plt Count (130-400) K/uL MPV (7.4-10.4) fL Sodium (136-145) mmol/L Potassium (3.5-5.1) mmol/L Chloride (98-107) mmol/L Carbon Dioxide (21-32) mmol/L Anion Gap (3-11) BUN (6-23) mg/dl Creatinine (0.6-1.2) mg/dl Est Cr Clr Drug Dosing ml/min Est GFR ( Amer) ml/min Est GFR (Non-Af Amer) ml/min BUN/Creatinine Ratio (10-20) Glucose (70-99(Fasting)) mg/dl POC Glucose 280 H 236 H 220 H (70-99) mg/dl Calcium (8.5-10.1) mg/dl Magnesium (1.7-2.4) mg/dl Total Bilirubin (0.2-1.0) mg/dl AST (13-39) U/L ALT (7-52) U/L Alkaline Phosphatase (34-104) U/L Total Protein (6.0-8.3) gm/dl Albumin (3.4-5.0) gm/dl Globulin (2.5-4.0) gm/dl Albumin/Globulin Ratio (0.9-2) // Range/Units 11:04 WBC (4.8-10.8) K/uL RBC (4.2-5.4) M/uL Hgb (12.0-16.0) g/dL Hct (37-47) % MCV (80-100) fL MCH (25-34) pg MCHC (32-36) g/dL RDW Std Deviation (36.4-46.3) fL RDW Coeff of Maria Del Carmen (11.5-14.5) % Plt Count (130-400) K/uL MPV (7.4-10.4) fL Sodium (136-145) mmol/L Potassium (3.5-5.1) mmol/L Chloride (98-107) mmol/L Carbon Dioxide (21-32) mmol/L Anion Gap (3-11) BUN (6-23) mg/dl Creatinine (0.6-1.2) mg/dl Est Cr Clr Drug Dosing ml/min Est GFR ( Amer) ml/min Est GFR (Non-Af Amer) ml/min BUN/Creatinine Ratio (10-20) Glucose (70-99(Fasting)) mg/dl POC Glucose 213 H (70-99) mg/dl Calcium (8.5-10.1) mg/dl Magnesium (1.7-2.4) mg/dl Total Bilirubin (0.2-1.0) mg/dl AST (13-39) U/L ALT (7-52) U/L Alkaline Phosphatase (34-104) U/L Total Protein (6.0-8.3) gm/dl Albumin (3.4-5.0) gm/dl Globulin (2.5-4.0) gm/dl Albumin/Globulin Ratio (0.9-2) Microbiology 01/21/22 Unknown Gram Stain - Final Toe,Right Great Aerobic and Anaerobic Culture - Preliminary Staphylococcus species 09/02/21 Unknown Gram Stain - Final Ankle,Right Aerobic and Anaerobic Culture - Preliminary Staphylococcus species
[2021-09-03] MEDS: lisinopril 10 MG TAB PO SCH (08:56)
[2021-09-03] MEDS: METOPROLOL SUCC 50MG EXT REL TAB PO SCH (08:57)
[2021-09-03] MEDS: MULTIVITAMIN TAB PO SCH (08:57)
[2021-09-03] MEDS: DOCUSATE SODIUM 100 MG CAP PO SCH ×2 (08:58→21:05)
[2021-09-03] MEDS: LORazepam 1 MG TAB PO PRN ×2 (09:28→18:55)
[2021-09-03] MEDS ORDERED: MAGNESIUM SULFATE / D5W 1 GM/100 ML BAG IV ONE (09:30)
[2021-09-03] MEDS: INSULIN ASPART PER UNIT SC SCH ×4 (09:42→20:52)
--- NOTE | 2021-09-03 09:49 | Hospitalist Progress Note ---
Date of Service September 03, 2021 Assessment & Plan (1) Left arm numbness: Plan: - Acute onset with appreciable decreased strength in LUE and LLE - Obtain STAT CT head w/o contrast - EKG STAT ordered and reviewed, NSR w/o acute changes - STAT trop w/ repeat in 6 hours - Pt extremely anxious, medicated with dose of Ativan x 1 now (2) Osteomyelitis of great toe of right foot: Plan: With recurrent infections despite surgical amputation and debridement. Prior surgery was 08/12/2021. She was on clindamycin for 2 weeks after surgery and reports worsening infection after finishing that course. - S/p amputation revision, I&D of great toe amputation site, I&D of medial ankle, tenosynovectomies, and bead implantation with Dr. Montaño on 09/02/2021. - Continue Daptomycin, await final culture data. - Post-op care per primary team - Do not at this point see the need for ID consult. Patient will need prolonged course of IV antibiotics. - Once culture data has returned, will advise based off that. Anticipate need for at least 6 weeks. - Will need PICC line placed (3) Diabetes mellitus type 2, uncontrolled: Plan: A1c was 11.1% in 07/2021. - Hold metformin - Continue Lantus 15 units SQ HS -> Patient eating dinner when I saw her, so I think that will be safe. - Sliding scale insulin (4) PAD (peripheral artery disease): Plan: Seen by Dr. Lin with angiography on 08/15/2021 showing good blood flow to the wound bed. - Continue ASA - Hold statin while on daptomycin (5) Anemia: Plan: Baseline hgb ~11 - 13. Presently at 12.0. Likely from chronic disease. - Monitor (6) HTN (hypertension): Plan: BP presently 145/80 after surgery. - Continue home lisinopril, metoprolol (7) Depression: Plan: With anxiety. - Continue home nortriptyline & lorazepam (but will make lorazepam PRN instead of standing) (8) Insomnia: Plan: Reports she takes per lorazepam and Ambien both at the same time. - Continue both PRN (9) DVT prophylaxis: Plan: - D/w Dr. Montaño this morning, he would prefer ASA 81mg - I would continue to recommend Lovenox but ultimately it is at ortho's discretion (10) Hypomagnesemia: Plan: - Replacement ordered Plan: Interventions as discussed above, await culture data in order to determine dispo Repeat labs in AM PT/OT Admission and Anticipated Discharge Date Admission Date: September 02, 2021 Subjective Alerted by RN this morning that patient was c/o left shoulder pain and left arm numbness. HR 90s and BP 193/86. Upon my assessment, pt has no slurred speech, facial droop. Pain in L shoulder and under L arm is reproducible. C/o chest "ti ghtness" but no overt shortness of breath. Does report nausea and had a couple bouts of emesis yesterday. Denies diarrhea. Denies fever, chills, abd pain, headache, or gu symptoms. She is a former smoker, quit 9 months ago. Hospitalized under Dr. Montaño's service for recurrent infection in R foot fo llowing recent debridement and amputation on 08/12, now with osteomyelitis. Prior cultures growing MRSA, currently on Daptomycin. Pt now tearful, reports feeling "scared." Just prior to my arrival, pt was medicated for pain in her right foot and ankle w/ Dilaudid. She was also requesting Ativan which had not yet been administered by RN. Review of Systems Review of Systems: CONSTITUTIONAL: Denies weight loss/gain, fever and chills, fatigue, malaise, generalized weakness. HEENT: Denies changes in vision and hearing. RESPIRATORY: +chest tightness. Denies SOB, cough, wheezing. CV: Denies palpitations, CP, lower extremity edema, orthopnea, PND. GI: Denies abdominal pain, nausea, vomiting and diarrhea. : Denies dysuria and urinary frequency, urgency, hesitancy. MUSCULOSKELETAL: +L shoulder pain. R foot pain. SKIN: R foot wounds NEUROLOGICAL: +numbness/tingling L arm. PSYCHIATRIC: +anxious, tearful. Physical Exam Physical Exam: GENERAL: 56 yo WD/WN. NAD. LUNGS: CTAB. No accessory muscle use. No W/R/R. CARDIOVASCULAR: RRR ABDOMEN: Soft, non-tender and non-distended. BS normal x 4 quad. EXTREMITIES: No edema. Non-tender. Peripheral pulses +2/4. NEUROLOGIC: A&O x3. No facial droop or slurred speech. 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 L arm and leg strength diminished. PSYCHIATRIC: Anxious SKIN: R foot wounds dressed/wrapped. Results & Data Results & Data ([facility]) Vital Signs (Past 12 Hours) Vital Signs Temp Pulse Pulse Resp BP BP Pulse Ox 09/03/21 09:36 36.7 C 93 H 18 169/89 H 96 09/03/21 09:20 96 H 18 179/87 H 98 09/03/21 09:13 96 H 193/86 H 09/03/21 08:56 96 H 164/78 H 09/03/21 07:48 36.6 C 102 H 18 171/73 H 98 09/03/21 06:16 36.6 C 99 H 16 121/77 98 09/03/21 02:08 36.6 C 96 H 16 157/74 H 95 09/02/21 22:21 36.5 C 100 H 16 164/75 H 97 Laboratory Results 09/03/21 06:41 09/03/21 06:41 PG Care Time/CCT Total # of Minutes Spent Total Time Spent with Patient: Total time spent is greater than 50% in coordination of care (as documented) at patient's floor/unit and/or counseling patient: Coding Level of Care Code 90089 Subseq Hosp Care Lvl 3 Diagnoses Osteomyelitis of great toe of right foot M86.9 Diabetes mellitus type 2, uncontrolled E11.65 PAD (peripheral artery disease) I73.9 Anemia D64.9 HTN (hypertension) I10 Depression F32.9 Insomnia G47.00 DVT prophylaxis Z29.9 Left arm numbness R20.0 Hypomagnesemia E83.42
--- NOTE | 2021-09-03 10:56 | CT Scan Report ---
CT SCAN OF THE BRAIN WITHOUT IV CONTRAST CLINICAL HISTORY: Left upper extremity weakness. COMPARISON STUDY: No priors. TECHNIQUE: Unenhanced axial CT scan of the brain is performed from the vertex to the skull base. A d ose lowering technique was utilized adhering to the principles of ALARA. CT DOSE: 537.48 mGy.cm FINDINGS: Brain parenchyma: The brain parenchyma is normal in appearance. There is no hemorrhage, mass effect, or evidence of acute territorial ischemia by CT criteria. Guevara-white matter differentiation is preser be. No extra-axial fluid collection is seen. Ventricles, sulci, cisterns: Normal in configuration. Intracranial vasculature: There is atherosclerotic calcification of the cavernous carotid arteries. Calvarium: Unremarkable. Sinuses and mastoids: The visualized paranasal sinuses are clear. The mastoid air cells are well pneu matized. Orbits: The bony orbits are grossly intact. IMPRESSION: There is no hemorrhage, mass effect, or evidence of acute territorial ischemia by CT [place]. ACT 112: Negative or not required by law. Electronically signed by: Finn Bradshaw M.D. 09/03/2021 10:55 AM
[2021-09-03] MEDS: DAPTOmycin 300 MG in SYRINGE 0 ML IV SCH (14:32)
[2021-09-03] MEDS ORDERED: HYDROmorphone INJ 0.5 MG/0.5 ML SYR IV STA (20:32)
[2021-09-03] MEDS: ASPIRIN 81 MG ECTAB PO SCH (21:05)
[2021-09-03] MEDS: NORTRIPTYLINE HCL 25 MG CAP PO SCH (21:06)
[2021-09-03] MEDS: INSULIN GLARGINE SOLOSTAR 100 UNITS/ML 3 ML PEN SQ SCH (21:07)
[2021-09-03] MEDS: rOPINIRole HCL 2 MG TABLET PO SCH (21:07)
[2021-09-03] MEDS: ZOLPIDEM TARTRATE 10 MG TAB PO PRN (21:08)
[2021-09-04] MEDS: HYDROmorphone INJ 0.5 MG/0.5 ML SYR IV PRN ×5 (01:31→21:05)
[2021-09-04] MEDS: oxyCODONE HCL IR 5 MG TAB (IMMEDIATE RELEASE) PO PRN ×4 (03:56→18:20)
[2021-09-04] MEDS: ACETAMINOPHEN 500 MG TAB PO SCH ×3 (05:31→21:06)
--- NOTE | 2021-09-04 07:25 | Electrocardiogram Report ---
Test Reason : Blood Pressure : / mmHG Vent. Rate : 095 BPM Atrial Rate : 095 BPM P-R Int : 192 ms QRS Dur : 088 ms QT Int : 346 ms P-R-T Axes : 051 064 068 degrees QTc Int : 434 ms Normal sinus rhythm Normal ECG When compared with ECG of 02-SEP-2021 11:13, No significant change was found Confirmed by Harvinder Guerra ([id number]) on 09/04/2021 7:25:23 AM Referred By: Akhil Montaño Confirmed By:Scot Guerra
[2021-09-04 07:42] LABS: Basophils # (auto) 0.03 K/uL (0-0.2); Basophils % (auto) 0.4 %; Eosinophils # (auto) 0.45 K/uL (0-0.5); Eosinophils % (auto) 5.3 %; Hematocrit (blood only) 30.7 % (37-47); Hemoglobin 9.8 g/dL (12.0-16.0); Immature Granulocytes # (auto) 0.02 K/uL (0.00-0.02); Immature Granulocytes % (auto) 0.2 %; Lymphocytes # (auto) 2.47 K/uL (1.2-3.4); Lymphocytes % (auto) 28.9 %; Mean Corpuscular Hemoglobin 26.8 pg (25-34); Mean Corpuscular Hgb Conc 31.9 g/dL (32-36); Mean Corpuscular Volume 83.9 fL (80-100); Mean Platelet Volume 9.3 fL (7.4-10.4); Monocytes % (auto) 12.9 %; Neutrophils # (auto) 4.48 K/uL (1.4-6.5); Neutrophils % (auto) 52.3 %; Platelet Count 333 K/uL (130-400); RDW Standard Deviation 46.1 fL (36.4-46.3); Red Blood Count 3.66 M/uL (4.2-5.4); White Blood Count 8.55 K/uL (4.8-10.8)
[2021-09-04 08:14] LABS: BUN Creatinine Ratio 17.1 (10-20); Calcium 8.9 mg/dl (8.5-10.1); Creatinine Clr Calc Pharmacy 135.5 ml/min; Est GFR (African American) 132.9 ml/min; Est GFR (Non-African American) 114.7 ml/min; Potassium 3.8 mmol/L (3.5-5.1)
[2021-09-04] MEDS: DOCUSATE SODIUM 100 MG CAP PO SCH ×2 (09:14→20:02)
[2021-09-04] MEDS: lisinopril 10 MG TAB PO SCH (09:15)
[2021-09-04] MEDS: METOPROLOL SUCC 50MG EXT REL TAB PO SCH (09:15)
[2021-09-04] MEDS: MULTIVITAMIN TAB PO SCH (09:16)
[2021-09-04] MEDS: INSULIN ASPART PER UNIT SC SCH ×4 (09:20→21:18)
--- NOTE | 2021-09-04 09:56 | Orthopedic Progress Note ---
Date of Service September 04, 2021 Assessment & Plan (1) Wound dehiscence, surgical: Plan: 56 yo female stable POD #2 s/p revision right great toe amp, I&D medial ankle 1. Med management- cont IV abx, PICC line ordered 2. DVT prophylaxis- ASA, SCDs 3. PT/OT 4. D/C planning- pt to require several weeks of IV abx, cyanide case hardener to assist Admission and Anticipated Discharge Date Admission Date: September 02, 2021 Subjective Pt resting in bed, complains of moderate pain Physical Exam Physical Exam: Dressing changed, packing removed, Stimulan beads visible both wounds, some gapping at medial ankle wound, new dressing applied Results & Data ([facility]) Vital Signs (Past 12 Hours) Vital Signs Temp Pulse Pulse Resp BP BP Pulse Ox 09/04/21 09:12 78 118/73 09/04/21 07:29 36.7 C 78 16 130/72 96 09/03/21 22:49 36.9 C 85 16 124/66 94 Laboratory Results Microbiology 09/02/21 Unknown Gram Stain - Final Toe,Right Great Aerobic and Anaerobic Culture - Preliminary Staph aureus MRSA 09/02/21 Unknown Gram Stain - Final Ankle,Right Aerobic and Anaerobic Culture - Preliminary Staphylococcus species 09/04/21 09/04/21 09/04/21 Range/Units 08:24 07:21 07:21 WBC 8.55 (4.8-10.8) K/uL RBC 3.66 L (4.2-5.4) M/uL Hgb 9.8 L (12.0-16.0) g/dL Hct 30.7 L (37-47) % MCV 83.9 (80-100) fL MCH 26.8 (25-34) pg MCHC 31.9 L (32-36) g/dL RDW Std Deviation 46.1 (36.4-46.3) fL RDW Coeff of Maria Del Carmen 15.0 H (11.5-14.5) % Plt Count 333 (130-400) K/uL MPV 9.3 (7.4-10.4) fL Immature Gran % (Auto) 0.2 % Neut % (Auto) 52.3 % Lymph % (Auto) 28.9 % Sharkey % (Auto) 12.9 % Eos % (Auto) 5.3 % Baso % (Auto) 0.4 % Neut # (Auto) 4.48 (1.4-6.5) K/uL Lymph # (Auto) 2.47 (1.2-3.4) K/uL Sharkey # (Auto) 1.10 H (0.11-0.59) K/uL Eos # (Auto) 0.45 (0-0.5) K/uL Baso # (Auto) 0.03 (0-0.2) K/uL Immature Gran # (Auto) 0.02 (0.00-0.02) K/uL Sodium 134 L (136-145) mmol/L Potassium 3.8 (3.5-5.1) mmol/L Chloride 99 (98-107) mmol/L Carbon Dioxide 30 (21-32) mmol/L Anion Gap 5 (3-11) BUN 7 (6-23) mg/dl Creatinine 0.41 L (0.6-1.2) mg/dl Est Cr Clr Drug Dosing 135.5 ml/min Est GFR ( Amer) 132.9 ml/min Est GFR (Non-Af Amer) 114.7 ml/min BUN/Creatinine Ratio 17.1 (10-20) Glucose 76 (70-99(Fasting)) mg/dl POC Glucose 89 (70-99) mg/dl Calcium 8.9 (8.5-10.1) mg/dl Troponin I (0-0.04) ng/ml 09/03/21 09/03/21 09/03/21 Range/Units 20:49 17:26 15:17 WBC (4.8-10.8) K/uL RBC (4.2-5.4) M/uL Hgb (12.0-16.0) g/dL Hct (37-47) % MCV (80-100) fL MCH (25-34) pg MCHC (32-36) g/dL RDW Std Deviation (36.4-46.3) fL RDW Coeff of Maria Del Carmen (11.5-14.5) % Plt Count (130-400) K/uL MPV (7.4-10.4) fL Immature Gran % (Auto) % Neut % (Auto) % Lymph % (Auto) % Sharkey % (Auto) % Eos % (Auto) % Baso % (Auto) % Neut # (Auto) (1.4-6.5) K/uL Lymph # (Auto) (1.2-3.4) K/uL Sharkey # (Auto) (0.11-0.59) K/uL Eos # (Auto) (0-0.5) K/uL Baso # (Auto) (0-0.2) K/uL Immature Gran # (Auto) (0.00-0.02) K/uL Sodium (136-145) mmol/L Potassium (3.5-5.1) mmol/L Chloride (98-107) mmol/L Carbon Dioxide (21-32) mmol/L Anion Gap (3-11) BUN (6-23) mg/dl Creatinine (0.6-1.2) mg/dl Est Cr Clr Drug Dosing ml/min Est GFR ( Amer) ml/min Est GFR (Non-Af Amer) ml/min BUN/Creatinine Ratio (10-20) Glucose (70-99(Fasting)) mg/dl POC Glucose 128 H 142 H (70-99) mg/dl Calcium (8.5-10.1) mg/dl Troponin I < 0.03 (0-0.04) ng/ml 09/03/21 09/03/21 Range/Units 12:24 10:04 WBC (4.8-10.8) K/uL RBC (4.2-5.4) M/uL Hgb (12.0-16.0) g/dL Hct (37-47) % MCV (80-100) fL MCH (25-34) pg MCHC (32-36) g/dL RDW Std Deviation (36.4-46.3) fL RDW Coeff of Maria Del Carmen (11.5-14.5) % Plt Count (130-400) K/uL MPV (7.4-10.4) fL Immature Gran % (Auto) % Neut % (Auto) % Lymph % (Auto) % Sharkey % (Auto) % Eos % (Auto) % Baso % (Auto) % Neut # (Auto) (1.4-6.5) K/uL Lymph # (Auto) (1.2-3.4) K/uL Sharkey # (Auto) (0.11-0.59) K/uL Eos # (Auto) (0-0.5) K/uL Baso # (Auto) (0-0.2) K/uL Immature Gran # (Auto) (0.00-0.02) K/uL Sodium (136-145) mmol/L Potassium (3.5-5.1) mmol/L Chloride (98-107) mmol/L Carbon Dioxide (21-32) mmol/L Anion Gap (3-11) BUN (6-23) mg/dl Creatinine (0.6-1.2) mg/dl Est Cr Clr Drug Dosing ml/min Est GFR ( Amer) ml/min Est GFR (Non-Af Amer) ml/min BUN/Creatinine Ratio (10-20) Glucose (70-99(Fasting)) mg/dl POC Glucose 145 H (70-99) mg/dl Calcium (8.5-10.1) mg/dl Troponin I < 0.03 (0-0.04) ng/ml
[2021-09-04] MEDS: LORazepam 1 MG TAB PO PRN ×2 (13:06→20:01)
--- NOTE | 2021-09-04 13:44 | Hospitalist Progress Note ---
Date of Service September 04, 2021 Assessment & Plan (1) Osteomyelitis of great toe of right foot: Plan: With recurrent infections despite surgical amputation and debridement. Prior surgery was 08/12/2021. She was on clindamycin for 2 weeks after surgery and reports worsening infection after finishing that course. - S/p amputation revision, I&D of great toe amputation site, I&D of medial ankle, tenosynovectomies, and bead implantation with Dr. Montaño on 09/02/2021. - Continued on Daptomycin based off of previous culture data - Post-op care and pain control as per primary team - Do not at this point see the need for ID consult. - Culture of R great toe w/ MRSA as anticipated. Will require at least 6 weeks of IV Daptomycin. - PICC line can be inserted today, blood cultures collected yesterday and no growth thus far (2) Rash and nonspecific skin eruption: Plan: - Very suspicious of shingles given unilateral distribution and vesicle noted over bridge of nose - Certainly with the ongoing stress of recurrent hospitalizations, surgeries, could contribute to zoster eruption - Isolation precautions already in place for MRSA - Initiate Valtrex 1g PO TID - No vesicles noted over the cornea, no vision changes - Pt needs to avoid touching/scratching (3) Left arm numbness: Plan: - resolved w/o further issue - work up was WNL, normal EKG, neg trop x2, neg head CT - suspect a component of this episode was anxiety-driven (4) Diabetes mellitus type 2, uncontrolled: Plan: A1c was 11.1% in 07/2021. - Hold metformin - Continue Lantus 15 units SQ HS -> Patient eating dinner when I saw her, so I think that will be safe. - Sliding scale insulin (5) PAD (peripheral artery disease): Plan: Seen by Dr. Lin with angiography on 08/15/2021 showing good blood flow to the wound bed. - Continue ASA - Hold statin while on daptomycin (6) Anemia: Plan: Baseline hgb ~11 - 13. Presently at 12.0. Likely from chronic disease. - Monitor (7) HTN (hypertension): Plan: BP presently 145/80 after surgery. - Continue home lisinopril, metoprolol (8) Depression: Plan: With anxiety. - Continue home nortriptyline & lorazepam (but will make lorazepam PRN instead of standing) (9) Insomnia: Plan: Reports she takes per lorazepam and Ambien both at the same time. - Continue both PRN (10) DVT prophylaxis: Plan: - D/w Dr. Montaño this morning, he would prefer ASA 81mg - I would continue to recommend Lovenox but ultimately it is at ortho's discretion - Pt is currently on just once a day ASA 81mg, if ortho wants to utilize for DVT ppx then would at least increase to BID (11) Hypomagnesemia: Plan: - Replacement ordered Plan: Interventions as discussed above, Repeat labs in AM PT/OT--of note, she has refused therapy for the past 2 days Case management for d/c planning Admission and Anticipated Discharge Date Admission Date: September 02, 2021 Subjective Pt seen on rounds this morning. She was ambulating out of the bathroom when I entered the room. Pt reports overall doing well. She continues to c/o pain, feels that it's only controlled with Dilaudid and has been asking for a MASTICATOR. She denies cp, dyspnea, n/v/d, f/c, headache, or gu symptoms. Apparently the ortho PA on rounds removed packing and redressed. She remains on abx therapy which is going to be continued for a minimum of 6 weeks. States that if her pain medications are altered or the IV Dilaudid is discontinued, she is going to sign out AMA. Her other c/o is regarding a "burning" rash that she developed over her right eye, first noticed yesterday evening. No further c/o L shoulder pain or numbness/tingling in L arm. Review of Systems Review of Systems: CONSTITUTIONAL: Denies weight loss/gain, fever and chills, fatigue, malaise, generalized weakness. HEENT: Denies changes in vision and hearing. RESPIRATORY: +chest tightness. Denies SOB, cough, wheezing. CV: Denies palpitations, CP, lower extremity edema, orthopnea, PND. GI: Denies abdominal pain, nausea, vomiting and diarrhea. : Denies dysuria and urinary frequency, urgency, hesitancy. MUSCULOSKELETAL: +L shoulder pain. R foot pain. SKIN: R foot wounds NEUROLOGICAL: +numbness/tingling L arm. PSYCHIATRIC: +anxious, tearful. Physical Exam Physical Exam: GENERAL: 56 yo WD/WN. NAD. LUNGS: CTAB. No accessory muscle use. No W/R/R. CARDIOVASCULAR: RRR ABDOMEN: Soft, non-tender and non-distended. BS normal x 4 quad. EXTREMITIES: Trace edema RLE. R ankle tender. Peripheral pulses +2/4. NEUROLOGIC: A&O x3. No neuro deficits appreciated. No appreciable difference in strength between R&L arms/legs. PSYCHIATRIC: Anxious SKIN: R foot wounds dressed/wrapped. Erythematous raised rash over R eyelid with vesicle noted over bridge of nose. Results & Data Results & Data ([facility]) Vital Signs (Past 12 Hours) Vital Signs Temp Pulse Resp BP BP Pulse Ox 09/04/21 09:12 78 118/73 09/04/21 07:29 36.7 C 78 16 130/72 96 Laboratory Results 09/04/21 07:21 09/04/21 07:21 Spec: [id number] Collected: 09/02/21-UNK Received: 09/02/21-[address]: Akhil MontañoD.O. Source: Toe,Right Great OV Order: Ordered: Aer/Lucero Cult/Sm Comments: Comment 2. Right Great Toe Procedure Result Verified Site Gram Stain Final 09/02/21-174 Gram Stain Result Many WBCs Seen Few Gram Positive Cocci Aero/Lucero Cult Preliminary 09/04/21-1213 Organism 1 Staph aureus MRSA Quantity Moderate Sens Sensitivities to Follow MRSA RX M.I.C. --- --------- Clindamycin S <=0.5 Daptomycin S <=0.5 Erythromycin R >4 Oxacillin R >2 Rifampin S <=1 Tetracycline S <=4 Trimeth/Sulfa S <=0.5/9.5 Vancomycin S 2 S = SENSITIVE I = INTERMEDIATE R = RESISTANT PG Care Time/CCT Total # of Minutes Spent Total Time Spent with Patient: Total time spent is greater than 50% in coordination of care (as documented) at patient's floor/unit and/or counseling patient: Coding Level of Care Code 24749 Subseq Hosp Care Lvl 2 Diagnoses Left arm numbness R20.0 Osteomyelitis of great toe of right foot M86.9 Diabetes mellitus type 2, uncontrolled E11.65 PAD (peripheral artery disease) I73.9 Anemia D64.9 HTN (hypertension) I10 Depression F32.9 Insomnia G47.00 DVT prophylaxis Z29.9 Hypomagnesemia E83.42 Rash and nonspecific skin eruption R21
[2021-09-04] MEDS: DAPTOmycin 300 MG in SYRINGE 0 ML IV SCH (14:21)
[2021-09-04] MEDS: valACYclovir HCL 500 MG TABLET PO SCH ×2 (14:22→20:05)
[2021-09-04] MEDS: ASPIRIN 81 MG ECTAB PO SCH (20:01)
[2021-09-04] MEDS: NORTRIPTYLINE HCL 25 MG CAP PO SCH (20:03)
[2021-09-04] MEDS: rOPINIRole HCL 2 MG TABLET PO SCH (20:04)
[2021-09-04] MEDS: INSULIN GLARGINE SOLOSTAR 100 UNITS/ML 3 ML PEN SQ SCH (21:10)
[2021-09-04] MEDS: ZOLPIDEM TARTRATE 10 MG TAB PO PRN (21:18)
[2021-09-05] MEDS: HYDROmorphone INJ 0.5 MG/0.5 ML SYR IV PRN ×5 (01:12→19:56)
[2021-09-05] MEDS: ACETAMINOPHEN 500 MG TAB PO SCH ×3 (05:10→21:25)
[2021-09-05] MEDS: DOCUSATE SODIUM 100 MG CAP PO SCH ×2 (08:46→19:57)
[2021-09-05] MEDS: lisinopril 10 MG TAB PO SCH (08:47)
[2021-09-05] MEDS: METOPROLOL SUCC 50MG EXT REL TAB PO SCH (08:47)
[2021-09-05] MEDS: MULTIVITAMIN TAB PO SCH (08:47)
[2021-09-05] MEDS: valACYclovir HCL 500 MG TABLET PO SCH ×3 (08:48→19:58)
[2021-09-05 09:07] LABS: Basophils # (auto) 0.02 K/uL (0-0.2); Basophils % (auto) 0.2 %; Eosinophils # (auto) 0.45 K/uL (0-0.5); Eosinophils % (auto) 4.7 %; Hematocrit (blood only) 31.9 % (37-47); Hemoglobin 10.3 g/dL (12.0-16.0); Immature Granulocytes # (auto) 0.01 K/uL (0.00-0.02); Immature Granulocytes % (auto) 0.1 %; Lymphocytes # (auto) 2.41 K/uL (1.2-3.4); Lymphocytes % (auto) 25.3 %; Mean Corpuscular Hemoglobin 26.8 pg (25-34); Mean Corpuscular Volume 82.9 fL (80-100); Mean Platelet Volume 9.1 fL (7.4-10.4); Monocytes # (auto) 0.95 K/uL (0.11-0.59); Neutrophils # (auto) 5.68 K/uL (1.4-6.5); Neutrophils % (auto) 59.7 %; Platelet Count 339 K/uL (130-400); RDW Coefficient of Variation 14.7 % (11.5-14.5); Red Blood Count 3.85 M/uL (4.2-5.4); White Blood Count 9.52 K/uL (4.8-10.8)
[2021-09-05 09:12] LABS: Mean Corpuscular Hgb Conc 32.3 g/dL (32-36)
[2021-09-05] MEDS: INSULIN ASPART PER UNIT SC SCH ×4 (09:15→21:28)
[2021-09-05 09:32] LABS: BUN Creatinine Ratio 31.4 (10-20); Calcium 8.8 mg/dl (8.5-10.1); Creatinine Clr Calc Pharmacy 158.7 ml/min; Est GFR (Non-African American) 120.8 ml/min; Potassium 4.2 mmol/L (3.5-5.1)
[2021-09-05] MEDS: ONDANSETRON INJ 2 MG/ML 2 ML VIAL IV PRN (10:04)
--- NOTE | 2021-09-05 10:30 | Hospitalist Progress Note ---
Date of Service September 05, 2021 Assessment & Plan (1) Osteomyelitis of great toe of right foot: Plan: With recurrent infections despite surgical amputation and debridement. Prior surgery was 08/12/2021. She was on clindamycin for 2 weeks after surgery and reports worsening infection after finishing that course. - S/p amputation revision, I&D of great toe amputation site, I&D of medial ankle, tenosynovectomies, and bead implantation with Dr. Montaño on 09/02/2021. - Continued on Daptomycin based off of previous culture data - Post-op care and pain control as per primary team - Do not at this point see the need for ID consult. - Culture of R great toe w/ MRSA as anticipated. Will require at least 6 weeks of IV Daptomycin starting from 09/03 - PICC line inserted successfully on 09/04, functioning well - Per pt, is to have wound vac placed to R ankle debridement site (2) Rash and nonspecific skin eruption: Plan: - Very suspicious of shingles given unilateral distribution and vesicle noted over bridge of nose - Certainly with the ongoing stress of recurrent hospitalizations, surgeries, co uld contribute to zoster eruption - Contact isolation precautions already in place for MRSA, continue these for possible shingles - Initiated Valtrex 1g PO TID on 09/04 (will need 7 days) - No vesicles noted over the cornea, no vision changes - Pt needs to avoid touching/scratching (3) Left arm numbness: Plan: - resolved w/o further issue - work up was WNL, normal EKG, neg trop x2, neg head CT - suspect a component of this episode was anxiety-driven (4) Diabetes mellitus type 2, uncontrolled: Plan: A1c was 11.1% in 07/2021. - Hold metformin - Continue Lantus 15 units SQ HS -> Patient eating dinner when I saw her, so I think that will be safe. - Sliding scale insulin - Almost certainly contributing to her healing issues & recurrent infections (5) PAD (peripheral artery disease): Plan: Seen by Dr. Lin with angiography on 08/15/2021 showing good blood flow to the wound bed. - Continue ASA - Hold statin while on daptomycin (6) Anemia: Plan: Baseline hgb ~11 - 13. Presently at 12.0. Likely from chronic disease. - Monitor (7) HTN (hypertension): Plan: BP presently 145/80 after surgery. - Continue home lisinopril, metoprolol (8) Depression: Plan: With anxiety. - Continue home nortriptyline & lorazepam (but will make lorazepam PRN instead of standing) (9) Insomnia: Plan: Reports she takes per lorazepam and Ambien both at the same time. - Continue both PRN (10) DVT prophylaxis: Plan: - D/w Dr. Montaño this morning, he would prefer ASA 81mg - I would continue to recommend Lovenox but ultimately it is at ortho's discretion - Pt is currently on just once a day ASA 81mg, if ortho wants to utilize for DVT ppx then would at least increase to BID Plan: At this point, I have no further recommendations. Pt is medically stable for discharge home with IV Daptomycin. Advise total of 42 days of IV abx using pod #1 as day #1 of abx treatment. Recommend total of 7 days of oral Valtrex to treat shingles. Will sign off at this time, but please feel free to reconsult if the need should arise. Will continue to perform daily chart checks. Thank you for allowing us to participate in the care of this patient. Admission and Anticipated Discharge Date Admission Date: September 02, 2021 Subjective Pt seen on rounds this morning. She continues to have ongoing complaints of uncontrolled pain in her right foot and ankle. She denies cp, dyspnea, n/v/d, f/c, headache, or gu symptoms. Rash over right eye is improving. Review of Systems Review of Systems: CONSTITUTIONAL: Denies weight loss/gain, fever and chills, fatigue, malaise, generalized weakness. HEENT: Denies changes in vision and hearing. RESPIRATORY: Denies SOB, cough, wheezing. CV: Denies palpitations, CP, lower extremity edema, orthopnea, PND. GI: Denies abdominal pain, nausea, vomiting and diarrhea. : Denies dysuria and urinary frequency, urgency, hesitancy. MUSCULOSKELETAL: R foot and ankle pain. SKIN: R foot wounds. rash over right eye NEUROLOGICAL: no neuro complaints PSYCHIATRIC: +anxious Physical Exam Physical Exam: GENERAL: 56 yo WD/WN. NAD. LUNGS: Nonlabored. CTAB. CARDIOVASCULAR: RRR ABDOMEN: Soft, non-tender and non-distended. BS normal x 4 quad. EXTREMITIES: R ankle tender. Peripheral pulses +2/4. NEUROLOGIC: A&O x3. No neuro deficits appreciated. No appreciable difference in strength between R&L arms/legs. PSYCHIATRIC: Anxious SKIN: R foot wounds dressed/wrapped. Erythematous raised rash over R eyelid with vesicle noted over bridge of nose. Rash appears faded from yesterday. L arm picc. Results & Data Results & Data ([facility]) Vital Signs (Past 12 Hours) Vital Signs Temp Pulse Resp BP Pulse Ox 09/05/21 08:43 84 124/75 09/05/21 07:21 36.6 C 85 16 162/76 H 95 Laboratory Results 09/05/21 08:44 09/05/21 08:44 PG Care Time/CCT Total # of Minutes Spent Total Time Spent with Patient: Total time spent is greater than 50% in coordination of care (as documented) at patient's floor/unit and/or counseling patient: Coding Level of Care Code 03766 Subseq Hosp Care Lvl 2 Diagnoses Osteomyelitis of great toe of right foot M86.9 Rash and nonspecific skin eruption R21 Left arm numbness R20.0 Diabetes mellitus type 2, uncontrolled E11.65 PAD (peripheral artery disease) I73.9 Anemia D64.9 HTN (hypertension) I10 Depression F32.9 Insomnia G47.00 DVT prophylaxis Z29.9
[2021-09-05] MEDS: LORazepam 1 MG TAB PO PRN ×2 (11:59→19:57)
[2021-09-05] MEDS: oxyCODONE HCL IR 5 MG TAB (IMMEDIATE RELEASE) PO PRN ×2 (12:59→18:40)
[2021-09-05] MEDS: DAPTOmycin 300 MG in SYRINGE 0 ML IV SCH (14:37)
--- NOTE | 2021-09-05 15:28 | Orthopedic Progress Note ---
Date of Service September 05, 2021 Assessment & Plan (1) Wound dehiscence, surgical: Plan: POD 3 s/p I&D Right great toe incision and medial foot wound NWB on right foot Daily dressing changes. CM working on IV antibx. Pt will need 6 weeks IV antibx Admission and Anticipated Discharge Date Admission Date: September 02, 2021 Subjective POD 3 Pt awake, alert. Having some foot pain today. Nursing in the process of getting her some pain medication. No new complaints. Physical Exam Physical Exam: Dressing taken down. Small amount of Stimulan beads noted at the toe amputation site. No purulence. Mild erythema. Medial wound looks like it has widened slightly from the last time I saw it serveral days ago. Stimulan beads showing through most of the wound. All packing has been removed previously. Mild erythema around medial wound. Wounds redressed. Results & Data ([facility]) Vital Signs (Past 12 Hours) Vital Signs Temp Pulse Resp BP Pulse Ox 09/05/21 08:43 84 124/75 09/05/21 07:21 36.6 C 85 16 162/76 H 95
[2021-09-05] MEDS: ASPIRIN 81 MG ECTAB PO SCH (19:57)
[2021-09-05] MEDS: NORTRIPTYLINE HCL 25 MG CAP PO SCH (19:57)
[2021-09-05] MEDS: rOPINIRole HCL 2 MG TABLET PO SCH (19:58)
[2021-09-05] MEDS: INSULIN GLARGINE SOLOSTAR 100 UNITS/ML 3 ML PEN SQ SCH (21:24)
[2021-09-05] MEDS: ZOLPIDEM TARTRATE 10 MG TAB PO PRN (21:27)
[2021-09-06] MEDS: HYDROmorphone INJ 0.5 MG/0.5 ML SYR IV PRN ×7 (02:01→22:28)
[2021-09-06] MEDS: ACETAMINOPHEN 500 MG TAB PO SCH ×3 (06:13→21:43)
[2021-09-06] MEDS: valACYclovir HCL 500 MG TABLET PO SCH ×3 (07:48→21:42)
[2021-09-06] MEDS: MULTIVITAMIN TAB PO SCH (07:48)
[2021-09-06] MEDS: METOPROLOL SUCC 50MG EXT REL TAB PO SCH (07:48)
[2021-09-06] MEDS: lisinopril 10 MG TAB PO SCH (07:49)
[2021-09-06] MEDS: DOCUSATE SODIUM 100 MG CAP PO SCH ×2 (07:49→21:39)
[2021-09-06] MEDS: CYCLOBENZAPRINE HCL 10 MG TAB PO PRN ×2 (07:50→19:21)
[2021-09-06] MEDS: oxyCODONE HCL IR 5 MG TAB (IMMEDIATE RELEASE) PO PRN ×4 (07:59→21:32)
[2021-09-06] MEDS: LORazepam 1 MG TAB PO PRN ×2 (07:59→13:16)
[2021-09-06] MEDS: INSULIN ASPART PER UNIT SC SCH ×4 (08:40→21:39)
[2021-09-06] MEDS: DAPTOmycin 300 MG in SYRINGE 0 ML IV SCH (13:15)
[2021-09-06] MEDS: ONDANSETRON INJ 2 MG/ML 2 ML VIAL IV PRN (13:16)
--- NOTE | 2021-09-06 13:17 | Orthopedic Progress Note ---
Date of Service September 06, 2021 Assessment & Plan (1) Wound dehiscence, surgical: Plan: POD 4 s/p I&D Right great toe incision and medial foot wound Some changes with drainage from the wounds. Great toe amp site > than midfoot wound. NWB on right foot Daily dressing changes. Will discuss wound changes with Dr. Montaño. Continue to plan for Home Health IV antibx for now. Admission and Anticipated Discharge Date Admission Date: September 02, 2021 Subjective POD 4 Pt eating lunch presently. States she began having increased pain in her great toe amputation site this AM. Having referred pain up the dorsum of the foot. No increase in pain in the midfoot wound area. No other complaints. Physical Exam Physical Exam: Dressing changed. Her drainage has changed somewhat to a thicker purulent preciado drainage at the great toe amp site. Drainage yesterday was an orange serous drainage. Mild erythema around the toe amp site. Midfoot wound appears about the same but with the drainage slightly changing as above. No overt erythema noted. No odor. Wounds redressed. Results & Data ([facility]) Vital Signs (Past 12 Hours) Vital Signs Temp Pulse Resp BP Pulse Ox 09/06/21 07:52 36.8 C 84 18 144/82 H 93 09/06/21 02:25 36.9 C 90 18 164/82 H 93
[2021-09-06] MEDS: ZOLPIDEM TARTRATE 10 MG TAB PO PRN (21:34)
[2021-09-06] MEDS: ASPIRIN 81 MG ECTAB PO SCH (21:38)
[2021-09-06] MEDS: INSULIN GLARGINE SOLOSTAR 100 UNITS/ML 3 ML PEN SQ SCH (21:40)
[2021-09-06] MEDS: rOPINIRole HCL 2 MG TABLET PO SCH (21:41)
[2021-09-06] MEDS: NORTRIPTYLINE HCL 25 MG CAP PO SCH (21:41)
[2021-09-07] MEDS: LORazepam 1 MG TAB PO PRN ×4 (00:55→21:43)
[2021-09-07] MEDS: HYDROmorphone INJ 0.5 MG/0.5 ML SYR IV PRN ×11 (01:28→23:47)
[2021-09-07] MEDS: oxyCODONE HCL IR 5 MG TAB (IMMEDIATE RELEASE) PO PRN ×5 (02:58→20:01)
[2021-09-07] MEDS: ACETAMINOPHEN 500 MG TAB PO SCH ×3 (06:14→21:42)
[2021-09-07 06:54] LABS: Creatinine Clr Calc Pharmacy 108.9 ml/min; Est GFR (African American) 123.7 ml/min; Est GFR (Non-African American) 106.7 ml/min
[2021-09-07] MEDS: lisinopril 10 MG TAB PO SCH (07:10)
[2021-09-07] MEDS: METOPROLOL SUCC 50MG EXT REL TAB PO SCH (07:11)
[2021-09-07] MEDS: DOCUSATE SODIUM 100 MG CAP PO SCH ×2 (07:11→21:38)
[2021-09-07] MEDS: CYCLOBENZAPRINE HCL 10 MG TAB PO PRN (07:11)
[2021-09-07] MEDS: valACYclovir HCL 500 MG TABLET PO SCH ×3 (07:12→21:41)
[2021-09-07] MEDS: MULTIVITAMIN TAB PO SCH (07:12)
[2021-09-07] MEDS: ONDANSETRON INJ 2 MG/ML 2 ML VIAL IV PRN (07:34)
[2021-09-07] MEDS: INSULIN ASPART PER UNIT SC SCH ×4 (09:01→21:39)
--- NOTE | 2021-09-07 10:03 | Pain Management Consultation ---
Date of Consultation September 07, 2021 Assessment & Plan (1) Osteomyelitis of great toe of right foot: (2) Wound dehiscence, surgical: (3) Diabetic peripheral neuropathy: 1. Will adjust hydromorphone 0.5 mg from every 3 hours to every 2 hours as needed for breakthrough pain 2. Patient may continue with OxyIR 5-10 mg every 4 hours as needed 3. Will add pregabalin 50 mg nightly tonight transitioning to twice daily dosing tomorrow. Recommend further titration pending response. Thank you for allowing us to participate in the care of Mrs. Witt. History of Present Illness Reason for Consultation: Right foot pain with history of osteomyelitis of great toe Requesting Physician: Kaushik Kim PA-C Attending Physician: Akhil Montaño, History of Present Illness Mrs. Witt is a 56-year-old white female who is known to the pain service from prior admissions with similar complaints of intractable right-sided foot pain with history of osteomyelitis of the great toe of the right foot who underwent a repeat surgical procedure on 09/02/2021. Patient has past medical history significant for uncontrolled diabetes mellitus, peripheral neuropathy and multiple right foot wounds with osteomyelitis/tenosynovitis. Patient underwent amputation revision, I&D of great toe amputation site, I&D of medial ankle, tenosynovectomies and bead implantation per Dr. Montaño on 09/02/2021. Patient remains on IV antibiotic therapy. She reports that her pain is sharp, burning and stabbing in characteristic involving the right foot near the great toe with some radiation towards the ankle. Patient rating her pain at a 4-7/10. Patient indicates that her pain has been adequately controlled with consistent dosing of OxyIR and hydromorphone as long as they are dosed consistently. She denies any change in location or characteristic of her pain. She does have history of diabetic peripheral neuropathy with neuropathic pain. She has prior history of intolerability of gabapentin due to nausea. She has not previously trialed Lyrica. She denies axial low back pain or lumbar radicular component to her symptoms. Patient has no further constitutional complaints. Plan of care discussed with Dr. Deena Sandoval. Pain Assessment Full Body Front + Back: 1. Right foot Allergies Allergy/AdvReac Type Severity Reaction Status Date / Time morphine Allergy Severe blisters Verified 09/02/21 11:09 in mouth Sulfa (Sulfonamide Allergy Severe rash/swelli Verified 09/02/21 11:09 Antibiotics) ng vancomycin Allergy Intermediate YULIYA Verified 09/02/21 11:09 SYNDROME Home Medications Medication Instructions Recorded Confirmed Type aspirin 81 mg tablet,delayed 81 mg PO QPM 10/19/20 09/02/21 History release (Aspirin Low Dose) cyclobenzaprine 10 mg tablet 10 mg PO TID 10/19/20 09/02/21 History nortriptyline 50 mg capsule 100 mg PO HS 10/19/20 09/02/21 History (Pamelor) ropinirole 2 mg tablet 4 mg PO HS 10/19/20 09/02/21 History zolpidem 10 mg tablet (Ambien) 10 mg PO HS 10/19/20 09/02/21 History lancets (OneTouch UltraSoft #100 ea 11/12/20 07/14/21 History Lancets) atorvastatin 40 mg tablet (Lipitor) 40 mg PO HS 01/24/21 09/02/21 History lisinopril 10 mg tablet (Zestril) 10 mg PO QAM 01/24/21 09/02/21 History lorazepam 1 mg tablet (Ativan) 1 mg PO TID #21 tab 01/28/21 09/02/21 Rx albuterol sulfate 90 mcg/actuation 1 puff INHALATION QID PRN 03/05/21 09/02/21 History aerosol inhaler (Proventil HFA) metoprolol succinate 50 mg 50 mg PO QAM 03/05/21 09/02/21 History tablet,extended release 24 hr (Toprol XL) ergocalciferol (vitamin D2) 1,250 50,000 unit PO Ortiz 30 Days #4 cap 08/18/21 09/02/21 Rx mcg (50,000 unit) capsule insulin glargine 100 unit/mL (3 15 unit SUBCUT HS #1 ml 08/18/21 09/02/21 Rx mL) subcutaneous pen (Basaglar KwikPen U-100 Insulin) insulin lispro 100 unit/mL 3 unit SUBCUT TIDM #1 ml 08/18/21 09/02/21 Rx subcutaneous pen (Humalog KwikPen (U-100) Insulin) metformin 500 mg tablet 500 mg PO BID #60 tab 01/06/22 01/21/22 Rx azithromycin 250 mg tablet 250 mg PO BID 09/02/21 09/02/21 History (Zithromax) oxycodone-acetaminophen 5 mg-325 1 tab PO Q6H PRN 09/02/21 09/02/21 History mg tablet (Percocet) acetaminophen 500 mg tablet 1,000 mg PO Q8 14 Days #84 tab 09/06/21 Rx (Tylenol Extra Strength) daptomycin 500 mg intravenous 300 mg IV DAILY 40 Days #10 ea 09/06/21 Rx solution Patient History Medical History (Updated 09/07/21 @ 10:49 by David Sandhu PA-C) 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 No issues per anesthesia postop progress note. Cellulitis Chronic back pain Depression Diabetic peripheral neuropathy DM2 (diabetes mellitus, type 2) IDDM, A1c 07/2021-11% Gastritis GIB (gastrointestinal bleeding) Hyperlipidemia Insulin dependent diabetes mellitus Nonobstructive atherosclerosis of coronary artery Numbness of lower extremity Peripheral neuropathy Right second toe ulcer Seizures Surgical History History of cardiac cath done at [facility]; 09/22/19; LM - mild luminal irregularities. LAD - mid 20-30%, distal with myocardial bridge & 30% stenosis. L Cx - mild luminal irregularities. RCA - proximal <30% stenosis; mid/distal vessel mild plaques. PDA - mild luminal irregularities. History of esophagogastroduodenoscopy (EGD) Family History Mother , age 63 Myocardial infarction Father , age 68 or 69 Myocardial infarction Brother S/P CABG (coronary artery bypass graft) Sister Myocardial infarction x 3; she is 57yo Social History Smoking Status: Former smoker Tobacco Type: Cigarettes packs per day: 1; Years Smoked: 20; Cigarettes Per Day: 1 PPD for 20 years; Second Hand Exposure: No; Hx Alcohol Use: No Hx Substance Use: Yes Last Used Substance: Unknown Last Used Substance Other:: couple weeks ago Substance Use Type Other:: Medical Marijuana Preferred Language: Slovak Communication Ability: Effective Engineering Psychologist Required: No Beliefs That Will Affect Care: None marital status: Current Living Situation: Spouse 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 Patient was easily arousable. Speech and thought process appropriate. Mood and affect appropriate. Cognition intact. Head: Normocephalic and atraumatic. ENT: No evidence of nasal or oral mucosal lesions. Mucous membranes are moist. Eyes: Pupils equal round reactive to light. Abdomen: Soft and nondistended. No organomegaly. Bowel sounds active. Lower extremities: Patient has large bandage present on the right foot which was not removed for visual inspection. Patient has no appreciable edema of the ankle and pretibial region bilaterally. Her sensation was intact. Strength was 5/5 in the left with dorsi and plantar flexion EHL testing. Patient has some scattered dysesthesias upon palpation of the toes with some diminished sensation. Neurologic: Cranial nerves grossly intact. Ambulatory function not witnessed.
[2021-09-07] MEDS ORDERED: GADOBUTROL 65ML VIAL IV ONE (14:03)
[2021-09-07] MEDS: DAPTOmycin 300 MG in SYRINGE 0 ML IV SCH (14:46)
--- NOTE | 2021-09-07 15:00 | Magnetic Resonance Report ---
MRI OF THE RIGHT FOREFOOT COMBO CLINICAL HISTORY: Infection. COMPARISON STUDY: MRI of the right forefoot dated 08/07/2021. Radiographs of the right foot dated . TECHNIQUE: MRI of the right forefoot is performed utilizing various T1- and T2-weighted sequences in the axial, sagittal, and coronal planes. Contrast-enhanced sequences are acquired following the IV ad ministration of 6.5 cc of Gadavist. The Examination is compromised by motion artifact. FINDINGS: There is postoperative change consistent with resection of the first and second toes throug h the metatarsophalangeal joints. There is significant marrow edema identified within the distal shaf t and head of the first metatarsal. Marrow edema is also present within the head of the second metata rsal. There is corresponding drop in signal on the T1-weighted sequences, with nonspecific postcontra st enhancement. Marrow edema is also seen at the second tarsometatarsal articulation with nonspecific enhancement. There is significant soft tissue edema identified around the first and second metatarsa ls with nonspecific patchy abnormal enhancement. A wound is suggested distal to the first metatarsal head. No organized/peripherally enhancing fluid collection is seen to suggest abscess. There is nonsp ecific myositis of the regional musculature. Micrometallic artifact along the plantar aspect of the f oot is likely on a postoperative basis. Imaged portions of the plantar fascia appear intact. IMPRESSION: 1. There is postoperative change from resection of the first and second toes as above. The first prox imal phalangeal resection is new as compared to 08/10/2021. 2. An open wound is suggested anterior to the first metatarsal head. 3. There is significant marrow edema within the distal aspect of the first and second metatarsals as above, likely representing osteomyelitis. Clinical correlation will be required. 4. There is evidence of surrounding cellulitis. No organized fluid collection is seen to indicate abs cess. 5. There is marrow edema at the second tarsometatarsal articulation with nonspecific abnormal enhance ment. Although this is likely on a degenerative basis, this has progressed as compared to 08/10/2021. Clinical correlation will be required. Dictated: 09/07/2021 2:30 PM Transcribed: 09/07/2021 2:47 PM Alondra [id number] ARIAN_Herman Electronically signed by: Finn Bradshaw M.D. 09/07/2021 2:58 PM
--- NOTE | 2021-09-07 15:47 | Orthopedic Progress Note ---
Date of Service September 07, 2021 Assessment & Plan (1) Wound dehiscence, surgical: Plan: POD 5 s/p I&D Right great toe incision and medial foot wound Some improvement noted with drainage type with great toe amp site. Medial wound continues to dehisce further. Appreciate Pain management input. (David Sandhu PA-C) Dr. Lin saw pt this afternoon. Appreciate input. Planning to recheck US but doubts any change since earlier in the month. New MRI done. Results as below. NWB on right foot Daily dressing changes. Will discuss wound changes and MRI results with Dr. Montaño. Continue to plan for Home Health IV antibx for now. Admission and Anticipated Discharge Date Admission Date: September 02, 2021 Subjective POD 5 Pt just returned from having MRI. Continues to have pain at great toe site, pain across the dorsum of the foot more so around the 1st and second metatarsals. Also now radiating to the plantar surface of the midfoot. Pt seen by Pain management team this AM. Meds adjusted/added. Pt in good form this afternoon. Physical Exam Physical Exam: Dressing removed. Less drainage today. Great toe amp site with darkened erythema. The wound she has on the great toe site was more open yesterday with Stimulan beads showing. Today it looks better. The drainage is no longer as purulent looking. Thinner in consistency. No odor. The wound is closing and much small. The medial midfoot wound continues to widen up. I removed 2 nylon sutures that were basically providing no support. Minimal drainage today. The wound is about 1cm at it's widest part distally. Stimulan beads readily seen. No odor. Mild dark erythema around the wound edges. No slough. Both wounds redressed. Results & Data ([facility]) Vital Signs (Past 12 Hours) Vital Signs Temp Pulse Resp BP Pulse Ox 09/07/21 15:03 36.7 C 74 17 133/84 94 09/07/21 07:36 36.6 C 86 18 120/76 97 Diagnostic Findings Patient:EILEEN ESCOBAR Admit Date:09/02/21 MR#:[id number] Address1:[address] Acct ID:[id number] Address2: Date:1965 [facility] Zip:[place] [address] Age:56 Location:3N Sex:F Room/Bed:N385-2 Att Phy:Akhil Montaño D.O. Diagnosis:WOUND DEHISCENE RIGHT FOOT/CELLULITIS Ana Maria Phy:Ashok Clemons MD Service Date:09/07/21 Fam Phy: Interpreting Phy:Finn Bradshaw MDAdmit Phy:Akhil Montaño D.O. Ordering Phy:Kaushik Kim PA-C cc: ~ MRI OF THE RIGHT FOREFOOT COMBO CLINICAL HISTORY: Infection. COMPARISON STUDY: MRI of the right forefoot dated 08/07/2021. Radiographs of the right foot dated 08/09/2021. TECHNIQUE: MRI of the right forefoot is performed utilizing various T1- and T2- weighted sequences in the axial, sagittal, and coronal planes. Contrast-enhanced sequences are acquired following the IV administration of 6.5 cc of Gadavist. The Examination is compromised by motion artifact. FINDINGS: There is postoperative change consistent with resection of the first and second toes through the metatarsophalangeal joints. There is significant marrow edema identified within the distal shaft and head of the first metatarsal. Marrow edema is also present within the head of the second metatarsal. There is corresponding drop in signal on the T1-weighted sequences, with nonspecific postcontrast enhancement. Marrow edema is also seen at the second tarsometatarsal articulation with nonspecific enhancement. There is significant soft tissue edema identified around the first and second metatarsals with nonspecific patchy abnormal enhancement. A wound is suggested distal to the first metatarsal head. No organized/peripherally enhancing fluid collection is seen to suggest abscess. There is nonspecific myositis of the regional musculature. Micrometallic artifact along the plantar aspect of the foot is likely on a postoperative basis. Imaged portions of the plantar fascia appear intact. IMPRESSION: 1. There is postoperative change from resection of the first and second toes as above. The first proximal phalangeal resection is new as compared to 08/10/2021. 2. An open wound is suggested anterior to the first metatarsal head. 3. There is significant marrow edema within the distal aspect of the first and second metatarsals as above, likely representing osteomyelitis. Clinical correlation will be required. 4. There is evidence of surrounding cellulitis. No organized fluid collection is seen to indicate abscess. 5. There is marrow edema at the second tarsometatarsal articulation with nonspecific abnormal enhancement. Although this is likely on a degenerative basis, this has progressed as compared to 08/10/2021. Clinical correlation will be required.
--- NOTE | 2021-09-07 17:08 | Vascular Medicine Consultation ---
Date of Consultation September 07, 2021 Assessment & Plan (1) Osteomyelitis of great toe of right foot: 2. PAD 3.Insulin-dependent diabetes 4. Nonobstructive coronary disease 5. History of tobacco use 6. Dyslipidemia Reviewed patient's recent right lower extremity angiogram. At that time had only mild to moderate nonobstructive disease with three-vessel distal runoff and direct inline flow to ulcer bed. Arterial supply adequate to heal surgical wounds. Will repeat right lower extremity ultrasound to confirm no changes in the interim. Assuming no significant changes no need for additional vascular testing/intervention. Thank you for allowing us to participate in the care of this patient. Please contact with any questions. History of Present Illness Attending Physician: Akhil Montaño, History of Present Illness Mrs. Witt is a very pleasant 56 year old woman with right great toe wound, osteomyelitis complicated by medial hindfoot abscess now great toe amputation and multiple washouts with Dr. Montaño. Patient known to me from prior outpatient visit and hospitalizations. Has known nonobstructive bilateral lower extremity PAD. Underwent Right lower extremity angiogram during last hospitalization on 08/15/2021. Noted at that time only to have a 30% proximal SFA stenosis, 40 to 50% proximal KERLINE stenosis with brisk three-vessel runoff to the foot, intact pedal arch and normal angiographic wound blush at great toe amputation site. Arterial supply thought sufficient for wound healing. Now with recurrent, nonhealing wounds asked to reassess need for vascular intervention. Foot MRI today suggestive of osteomyelitis involving first and second metatarsal heads. Medical history significant for insulin dependent type DM, dyslipidemia, hypertension, nonobstructive coronary artery disease, history of tobacco use, spinal stenosis. Prior vascular studies: CTA 07/2021: Mild distal right external iliac stenosis, mild to moderate bila teral SFA disease. Severe stenosis proximal left KERLINE. Moderate proximal right KERLINE. Arterial duplex 07/2021: Moderate proximal SFA stenosis (PSV 256), patent three- vessel runoff with monophasic flow, KERLINE stenosis (PSV 285) NATHAN/TBI 07/2021: Right NATHAN 0.96, left 1.1. Right third toe pressure 184 TBI 1.39. Left TBI 1.13. Social history: Lives with . Quit smoking about 6 months ago Allergies Allergy/AdvReac Type Severity Reaction Status Date / Time morphine Allergy Severe blisters Verified 09/02/21 11:09 in mouth Sulfa (Sulfonamide Allergy Severe rash/swelli Verified 09/02/21 11:09 Antibiotics) ng vancomycin Allergy Intermediate YULIYA Verified 09/02/21 11:09 SYNDROME Home Medications Medication Instructions Recorded Confirmed Type aspirin 81 mg tablet,delayed 81 mg PO QPM 10/19/20 09/02/21 History release (Aspirin Low Dose) cyclobenzaprine 10 mg tablet 10 mg PO TID 10/19/20 09/02/21 History nortriptyline 50 mg capsule 100 mg PO HS 10/19/20 09/02/21 History (Pamelor) ropinirole 2 mg tablet 4 mg PO HS 10/19/20 09/02/21 History zolpidem 10 mg tablet (Ambien) 10 mg PO HS 10/19/20 09/02/21 History lancets (OneTouch UltraSoft #100 ea 11/12/20 07/14/21 History Lancets) atorvastatin 40 mg tablet (Lipitor) 40 mg PO HS 01/24/21 09/02/21 History lisinopril 10 mg tablet (Zestril) 10 mg PO QAM 01/24/21 09/02/21 History lorazepam 1 mg tablet (Ativan) 1 mg PO TID #21 tab 01/28/21 09/02/21 Rx albuterol sulfate 90 mcg/actuation 1 puff INHALATION QID PRN 03/05/21 09/02/21 History aerosol inhaler (Proventil HFA) metoprolol succinate 50 mg 50 mg PO QAM 03/05/21 09/02/21 History tablet,extended release 24 hr (Toprol XL) ergocalciferol (vitamin D2) 1,250 50,000 unit PO Ortiz 30 Days #4 cap 08/18/21 09/02/21 Rx mcg (50,000 unit) capsule insulin glargine 100 unit/mL (3 15 unit SUBCUT HS #1 ml 08/18/21 09/02/21 Rx mL) subcutaneous pen (Basaglar KwikPen U-100 Insulin) insulin lispro 100 unit/mL 3 unit SUBCUT TIDM #1 ml 08/18/21 09/02/21 Rx subcutaneous pen (Humalog KwikPen (U-100) Insulin) metformin 500 mg tablet 500 mg PO BID #60 tab 08/18/21 09/02/21 Rx azithromycin 250 mg tablet 250 mg PO BID 09/02/21 09/02/21 History (Zithromax) oxycodone-acetaminophen 5 mg-325 1 tab PO Q6H PRN 09/02/21 09/02/21 History mg tablet (Percocet) acetaminophen 500 mg tablet 1,000 mg PO Q8 14 Days #84 tab 09/06/21 Rx (Tylenol Extra Strength) daptomycin 500 mg intravenous 300 mg IV DAILY 40 Days #10 ea 09/06/21 Rx solution Patient History Medical History (Updated 09/08/21 @ 17:04 by Ramesh Trent MD) 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 No issues per anesthesia postop progress note. Cellulitis Chronic back pain Depression Diabetic peripheral neuropathy DM2 (diabetes mellitus, type 2) IDDM, A1c 07/2021-11% Gastritis GIB (gastrointestinal bleeding) History of amputation of great toe Hyperlipidemia Insulin dependent diabetes mellitus Nonobstructive atherosclerosis of coronary artery Numbness of lower extremity Peripheral neuropathy Right second toe ulcer Seizures Surgical History History of cardiac cath done at [facility]; 09/22/19; LM - mild luminal irregularities. LAD - mid 20-30%, distal with myocardial bridge & 30% stenosis. L Cx - mild luminal irregularities. RCA - proximal <30% stenosis; mid/distal vessel mild plaques. PDA - mild luminal irregularities. History of esophagogastroduodenoscopy (EGD) Family History Mother , age 63 Myocardial infarction Father , age 68 or 69 Myocardial infarction Brother S/P CABG (coronary artery bypass graft) Sister Myocardial infarction x 3; she is 57yo Social History Smoking Status: Former smoker Tobacco Type: Cigarettes packs per day: 1; Years Smoked: 20; Cigarettes Per Day: 1 PPD for 20 years; Second Hand Exposure: No; Hx Alcohol Use: No Hx Substance Use: Yes Last Used Substance: Unknown Last Used Substance Other:: couple weeks ago Substance Use Type Other:: Medical Marijuana Preferred Language: Qatari Communication Ability: Effective Visual Education Director Required: No Beliefs That Will Affect Care: None marital status: Current Living Situation: Spouse 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 Sclerae anicteric. Lungs: Clear to auscultation bilaterally without rales, rhonchi or wheezes. Cardiac: Regular rate and rhythm. S1-S2 normal. No appreciable murmur, gallop or rub. Extremities/vascular: --Well perfused. No peripheral edema. --Radial 2+ bilaterally --Femoral 2+ bilaterally --Popliteal 2+ bilaterally --Right foot dressed. No surrounding erythema/induration Results & Data ([facility]) Vital Signs (Past 12 Hours) Vital Signs Temp Pulse Resp BP Pulse Ox 09/07/21 15:03 98.1 F 74 17 133/84 94 09/07/21 07:36 97.9 F 86 18 120/76 97 PG Care Time/CCT Total # of Minutes Spent Total Time Spent with Patient: Total time spent is greater than 50% in coordination of care (as documented) at patient's floor/unit and/or counseling patient: Coding Level of Care Code 28271 Inpt Consult Level 4 Diagnoses Osteomyelitis of great toe of right foot M86.9
[2021-09-07] MEDS ORDERED: PREGABALIN 50 MG CAP PO SCH (21:00)
[2021-09-07] MEDS: ASPIRIN 81 MG ECTAB PO SCH (21:38)
[2021-09-07] MEDS: INSULIN GLARGINE SOLOSTAR 100 UNITS/ML 3 ML PEN SQ SCH (21:39)
[2021-09-07] MEDS: NORTRIPTYLINE HCL 25 MG CAP PO SCH (21:40)
[2021-09-07] MEDS: rOPINIRole HCL 2 MG TABLET PO SCH (21:40)
[2021-09-07] MEDS: ZOLPIDEM TARTRATE 10 MG TAB PO PRN (21:43)
[2021-09-08] MEDS: HYDROmorphone INJ 0.5 MG/0.5 ML SYR IV PRN ×10 (01:58→23:52)
[2021-09-08] MEDS: oxyCODONE HCL IR 5 MG TAB (IMMEDIATE RELEASE) PO PRN ×2 (03:01→07:48)
[2021-09-08] MEDS: LORazepam 1 MG TAB PO PRN ×3 (05:36→21:16)
[2021-09-08] MEDS: ACETAMINOPHEN 500 MG TAB PO SCH ×3 (05:37→21:17)
[2021-09-08] MEDS: METOPROLOL SUCC 50MG EXT REL TAB PO SCH (08:49)
[2021-09-08] MEDS: lisinopril 10 MG TAB PO SCH (08:49)
[2021-09-08] MEDS: INSULIN ASPART PER UNIT SC SCH ×4 (08:49→21:14)
[2021-09-08] MEDS: PREGABALIN 50 MG CAP PO SCH ×2 (08:50→21:16)
[2021-09-08] MEDS: valACYclovir HCL 500 MG TABLET PO SCH ×3 (08:50→21:17)
[2021-09-08] MEDS: MULTIVITAMIN TAB PO SCH (08:50)
[2021-09-08] MEDS: DOCUSATE SODIUM 100 MG CAP PO SCH ×2 (08:50→21:13)
[2021-09-08] MEDS: CYCLOBENZAPRINE HCL 10 MG TAB PO PRN (08:53)
--- NOTE | 2021-09-08 10:05 | Ultrasound Report ---
US arterial duplex LE RT CLINICAL HISTORY: PAD TECHNIQUE: Real-time grayscale and color and spectral Doppler ultrasound imaging of the right arterie s was performed. Measurements calculated based on NASCET criteria. COMPARISON: None available at the time of this dictation. FINDINGS: RIGHT: Common femoral artery: Triphasic waveforms. Peak systolic velocity (PSV) 114 cm/s. There is mild plaq ue at the common femoral artery. Deep femoral artery: Triphasic waveforms. PSV 88 cm/s. Superficial femoral artery: Triphasic waveforms. PSV 137 cm/s. Popliteal artery: Triphasic waveforms. PSV 100 cm/s. Anterior tibial artery: Biphasic waveforms. PSV 106 cm/s. Posterior tibial artery: Biphasic waveforms. PSV 112 cm/s. Peroneal artery: Triphasic waveforms. PSV 75 cm/s. Dorsalis pedis: Biphasic waveforms. PSV 91 cm/s. ANKLE/BRACHIAL INDEX (NATHAN): Brachial: Right: 140 mmHg. Left: Not obtainable. Ankle (dorsalis pedis): Right: 143 mmHg. Left: 121 mmHg. Ankle (posterior tibial): Right: 134 mmHg. Left: 120 mmHg. Ankle/brachial index: Right: 1.02, Left: 0.86. Reference ranges: Normal Ankle/Brachial Index (NATHAN) 1.0-1.4; 0.91-0.99 borderline; < or = 0.9 abnormal (0.7-0.89 mild, 0.51-0.69 moderate, < or = 0.5 severe peripheral arterial disease). Normal Toe/Brachial Index (TBI) > or = 0.6; < 0.6 abnormal (0.34-0.59 mild, 0.12-0.34 moderate, < or = 0.11 severe peripheral arterial disease). IMPRESSION: 1. No hemodynamically significant stenosis. Biphasic waveforms are seen distally. 2. Right ankle brachial index is normal. Left ankle brachial index is moderately decreased. ACT 112: Negative or not required by law. Electronically signed by: Neil Mendieta M.D. 09/08/2021 10:03 AM
--- NOTE | 2021-09-08 12:33 | Orthopedic Progress Note ---
Date of Service September 08, 2021 Assessment & Plan (1) Wound dehiscence, surgical: Plan: POD 6 s/p I&D Right great toe incision and medial foot wound Wounds with slight increase in erythema. Continued widening of medial midfoot wound. Appreciate Pain management input. (David Sandhu PA-C) Will message to discuss possible future pain med needs for possbile surgery upcoming. Appreciate Dr Lin input. Repeat US showing no significant stenosis. New MRI done yesterday. NWB on right foot Daily dressing changes. Discussed yesterdays changes with Dr. Montaño. Will also discuss wound changes noted today. No plans for DC. Continue IV antibx. Dr. Montaño to assess for possible surgery tomorrow. Will make pt NPO after midnight. Admission and Anticipated Discharge Date Admission Date: September 02, 2021 Subjective Pt states she had a rough morning trying to get her pain medication on time. She feels the pain is worsening. Currently she is having pain but the pain medication has been a bit better since this AM. No other complaints. I discussed with her that with the wound changes along with the latest MRI results that Dr. Montaño wants to continue IV antibx in hospital. He wants to look at the wounds and review MRI. We discussed that she may need further surgery that might include I&D of midfoot wound;possible wound vac application; I&D of right great toe amputation site with possible metatarsal head resection of the 1st and 2nd metatarsal heads. Final decision to be made by Dr. Montaño. Pt understands possible need for further surgery. Physical Exam Physical Exam: Dressings removed from right foot. She does have a slight increase in her erythema at the great toe amputation site. Increased noted on the lateral aspect of the foot. No major change at the amputation site. Stimulan beads noted. No purulent drainage. I cannot express drainage from the wound. Midfoot wound continues to widen a little more. No purulent drainage. No odor. Erythema around the wound edge has increased slightly. Stimulan beads still packed in wound. Wounds redressed. Results & Data ([facility]) Vital Signs (Past 12 Hours) Vital Signs Temp Pulse Resp BP Pulse Ox 09/08/21 07:40 36.7 C 77 16 128/71 97 09/08/21 06:26 84 148/82 H
[2021-09-08] MEDS: DAPTOmycin 300 MG in SYRINGE 0 ML IV SCH (13:41)
--- NOTE | 2021-09-08 17:03 | Anesthesiology Consultation ---
Date of Service September 08, 2021 Assessment & Plan (1) Encounter for pre-operative examination: (2) Cellulitis of right foot: Chart Review Chart Review: Acceptable Risk for Surgery History Surgery Operation Date: 09/02/21 09:35 Proposed Procedures p Right Foot Incision and Drainage Right Great Toe Amputation Site, Incision and Drainage Posteriomedial Anklse, Possible Implantation Stimulan Antibiotic Beads - Akhil Montaño DO Operation Date: 09/09/21 07:00 Proposed Procedures p Irrigation and Debridement Right Medial Mid Foot Wound, Possible Wound Vac Application, Irrigation and Debridement Right Great Toe Amputation Site, Po ssible Metatarsal Head Resection 1st and 2nd Metatarsal Heads - Akhil Montaño DO Height/Weight Height: 5 ft 2 in Weight: 66.6 kg Allergies Allergy/AdvReac Type Severity Reaction Status Date / Time morphine Allergy Severe blisters Verified 09/02/21 11:09 in mouth Sulfa (Sulfonamide Allergy Severe rash/swelli Verified 09/02/21 11:09 Antibiotics) ng vancomycin Allergy Intermediate YULIYA Verified 09/02/21 11:09 SYNDROME Medications Home Medications Medication Instructions Recorded Confirmed Last Taken aspirin 81 mg tablet,delayed 81 mg PO QPM 10/19/20 09/02/21 08/31/21 release (Aspirin Low Dose) cyclobenzaprine 10 mg tablet 10 mg PO TID 10/19/20 09/02/21 08/31/21 nortriptyline 50 mg capsule 100 mg PO HS 10/19/20 09/02/21 08/31/21 (Pamelor) ropinirole 2 mg tablet 4 mg PO HS 10/19/20 09/02/21 08/31/21 zolpidem 10 mg tablet (Ambien) 10 mg PO HS 10/19/20 09/02/21 08/31/21 lancets (OneTouch UltraSoft #100 ea 11/12/20 07/14/21 Unknown Lancets) atorvastatin 40 mg tablet (Lipitor) 40 mg PO HS 01/24/21 09/02/21 08/31/21 lisinopril 10 mg tablet (Zestril) 10 mg PO QAM 01/24/21 09/02/21 08/31/21 lorazepam 1 mg tablet (Ativan) 1 mg PO TID #21 tab 01/28/21 09/02/21 08/31/21 albuterol sulfate 90 mcg/actuation 1 puff INHALATION QID PRN 03/05/21 09/02/21 09/02/21 08:30 aerosol inhaler (Proventil HFA) metoprolol succinate 50 mg 50 mg PO QAM 03/05/21 09/02/21 08/31/21 09:00 tablet,extended release 24 hr (Toprol XL) ergocalciferol (vitamin D2) 1,250 50,000 unit PO Ortiz 30 Days #4 cap 08/18/21 09/02/21 08/31/21 mcg (50,000 unit) capsule insulin glargine 100 unit/mL (3 15 unit SUBCUT HS #1 ml 08/18/21 09/02/21 08/31/21 mL) subcutaneous pen (Basaglar KwikPen U-100 Insulin) insulin lispro 100 unit/mL 3 unit SUBCUT TIDM #1 ml 08/18/21 09/02/21 08/31/21 subcutaneous pen (Humalog KwikPen (U-100) Insulin) metformin 500 mg tablet 500 mg PO BID #60 tab 08/18/21 09/02/21 08/31/21 17:00 azithromycin 250 mg tablet 250 mg PO BID 09/02/21 09/02/21 09/01/21 17:00 (Zithromax) oxycodone-acetaminophen 5 mg-325 1 tab PO Q6H PRN 09/02/21 09/02/21 09/01/21 20:45 mg tablet (Percocet) acetaminophen 500 mg tablet 1,000 mg PO Q8 14 Days #84 tab 09/06/21 Unknown (Tylenol Extra Strength) daptomycin 500 mg intravenous 300 mg IV DAILY 40 Days #10 ea 09/06/21 Unknown solution Active Medications Generic Name Dose Route Start Last Admin Trade Name Freq PRN Reason Stop Dose Admin Acetaminophen 1,000 mg 09/02/21 22:00 09/08/21 13:38 Acetaminophen 500 Mg Tab PO 10/02/21 21:59 1,000 mg Q8 RICKY Administration Aspirin 81 mg 09/02/21 21:00 09/07/21 21:38 Aspirin 81 Mg Ectab PO 10/02/21 20:59 81 mg QPM RICKY Administration Cyclobenzaprine HCl 10 mg 09/02/21 18:03 09/08/21 08:53 Cyclobenzaprine Hcl 10 Mg Tab PO 10/02/21 20:59 10 mg TID PRN Administration Muscle Spasm Docusate Sodium 100 mg 09/02/21 21:00 09/08/21 08:50 Docusate Sodium 100 Mg Cap PO 10/02/21 20:59 100 mg BID RICKY Administration Heparin Sodium (Beef Lung) 5 ml 09/04/21 14:29 09/08/21 06:19 Heparin 10 Unit/Ml 5 Ml Flush FLUSH 10/04/21 14:28 5 ml PRN PRN Administration Flush Hydromorphone HCl 0.5 mg 09/07/21 08:31 09/08/21 16:12 Hydromorphone Inj 0.5 Mg/0.5 Ml Syr IV 09/20/21 13:07 0.5 mg Q2H PRN Administration Pain or Pre PT Daptomycin 300 mg/ Syringe 6 mls @ 3 mls/min 09/03/21 14:00 09/08/21 13:41 IV 10/15/21 13:59 3 mls/min Q24H RICKY Administration Protocol Insulin Aspart 0 units 09/02/21 21:00 09/08/21 12:35 Insulin Aspart Per Unit SC 10/02/21 20:59 1 units ACHS RICKY Administration Insulin Glargine 15 units 09/02/21 21:00 09/07/21 21:39 Insulin Glargine Solostar 100 Units/Ml 3 Ml Pen SQ 10/02/21 20:59 15 units HS RICKY Administration Lisinopril 10 mg 09/03/21 09:00 09/08/21 08:49 Lisinopril 10 Mg Tab PO 10/03/21 08:59 10 mg QAM RICKY Administration Lorazepam 1 mg 09/02/21 18:03 09/08/21 11:29 Lorazepam 1 Mg Tab PO 10/02/21 20:59 1 mg TID PRN Administration Anxiety/Insomnia Metoprolol Succinate 50 mg 09/03/21 09:00 09/08/21 08:49 Metoprolol Succ 50mg Ext Rel Tab PO 10/03/21 08:59 50 mg QAM RICKY Administration Multivitamins 1 tab 09/03/21 09:00 09/08/21 08:50 Multivitamin Tab PO 10/03/21 08:59 1 tab QAM RICKY Administration Nortriptyline HCl 100 mg 09/02/21 21:00 09/07/21 21:40 Nortriptyline Hcl 25 Mg Cap PO 10/02/21 20:59 100 mg HS RICKY Administration Ondansetron HCl 4 mg 09/02/21 16:57 09/07/21 07:34 Ondansetron Inj 2 Mg/Ml 2 Ml Vial IV 10/02/21 16:56 4 mg Q6H PRN Administration Nausea And Vomiting Oxycodone HCl 5 - 10 mg 09/02/21 16:57 09/08/21 07:48 Oxycodone Hcl Ir 5 Mg Tab (Immediate Release) PO 09/16/21 16:56 10 mg Q4H PRN Administration Pain or Pre PT Pregabalin 50 mg 09/08/21 09:00 09/08/21 08:50 Pregabalin 50 Mg Cap PO 10/08/21 08:59 50 mg BID RICKY Administration Promethazine HCl 25 mg 09/02/21 20:39 09/02/21 21:30 Promethazine Hcl 25 Mg/20 Ml Udp PO 10/02/21 20:38 25 mg Q6H PRN Administration Nausea And Vomiting Ropinirole HCl 4 mg 09/02/21 21:00 09/07/21 21:40 Ropinirole Hcl 2 Mg Tablet PO 10/02/21 20:59 4 mg HS RICKY Administration Valacyclovir HCl 1,000 mg 09/04/21 14:00 09/08/21 13:42 Valacyclovir Hcl 500 Mg Tablet PO 09/11/21 13:59 1,000 mg TID RICKY Administration Zolpidem Tartrate 10 mg 09/02/21 18:03 09/07/21 21:43 Zolpidem Tartrate 10 Mg Tab PO 10/02/21 20:59 10 mg HS PRN Administration Insomnia NPO Date Last Intake of Fluids: 09/01/21 Time Last Intake of Fluids: 20:00 Date Last Intake of Solids: 08/31/21 Last Intake of Solids Comment: Pt reports has not eaten since Sunday due to pain and nausea. Past Medical History Medical History (Updated 09/08/21 @ 17:04 by Ramesh Trent MD) 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 No issues per anesthesia postop progress note. Cellulitis Chronic back pain Depression Diabetic peripheral neuropathy DM2 (diabetes mellitus, type 2) IDDM, A1c 07/2021-11% Gastritis GIB (gastrointestinal bleeding) History of amputation of great toe Hyperlipidemia Insulin dependent diabetes mellitus Nonobstructive atherosclerosis of coronary artery Numbness of lower extremity Peripheral neuropathy Right second toe ulcer Seizures Past Family History Family History Mother , age 63 Myocardial infarction Father , age 68 or 69 Myocardial infarction Brother S/P CABG (coronary artery bypass graft) Sister Myocardial infarction x 3; she is 57yo Past Surgical History Surgical History History of cardiac cath done at [facility]; 09/22/19; LM - mild luminal irregularities. LAD - mid 20-30%, distal with myocardial bridge & 30% stenosis. L Cx - mild luminal irregularities. RCA - proximal <30% stenosis; mid/distal vessel mild plaques. PDA - mild luminal irregularities. History of esophagogastroduodenoscopy (EGD) Social History Smoking Status: Former smoker tobacco type: cigarettes Smoking cigarettes per day: 1 PPD for 20 years Hx Alcohol Use: No Hx Substance Use: Yes substance use type: marijuana Substance Use Type Other:: Medical Marijuana Last Used Substance: Unknown Last Used Substance Other:: couple weeks ago Physical Exam Vital Signs Last Vital Signs Temp 36.7 C 09/08/21 16:58 Pulse 79 09/08/21 16:58 Resp 18 09/08/21 16:58 BP 124/75 09/08/21 16:58 Pulse Ox 96 09/08/21 16:58 Testing Laboratory Results 09/05/21 08:44 09/07/21 06:03 09/03/21 11:23 Aerobic Blood Culture - Final Blood No growth in Aerobic bottle after 5 days. Anaerobic Blood Culture - Final No growth in Anaerobic bottle after 5 days. 09/03/21 11:30 Aerobic Blood Culture - Final Blood No growth in Aerobic bottle after 5 days. Anaerobic Blood Culture - Final No growth in Anaerobic bottle after 5 days. 09/02/21 Unknown Gram Stain - Final Toe,Right Great Aerobic and Anaerobic Culture - Final Staph aureus MRSA 09/02/21 Unknown Gram Stain - Final Ankle,Right Aerobic and Anaerobic Culture - Final Staph aureus MRSA 09/08/21 09/08/21 11:59 08:03 POC Glucose 132 H 108 H Laboratory Tests 09/05/21 08:44 Potassium 4.2 Electrocardiogram Date: 09/03/21 Findings: + NSR @ (95) Echocardiogram Date: 01/24/21 EF: 65-70% LV Function: normal Other Findings: + LVH (mild) Valvular Disease: + no significant valvular disease
--- NOTE | 2021-09-08 17:14 | Vascular Medicine ProgressNote ---
Date of Service September 08, 2021 Assessment & Plan (1) Osteomyelitis of great toe of right foot: Plan: 2. PAD 3.Insulin-dependent diabetes 4. Nonobstructive coronary disease 5. History of tobacco use 6. Dyslipidemia Reviewed repeat arterial duplex. No significant high grade stenosis and multiphasic waveforms throughout. Findings consistent with recent angiogram. No need for additional vascular testing/intervention. Will sign off. Please contact if new questions arise. Admission and Anticipated Discharge Date Admission Date: September 02, 2021 Subjective Unchanged RLE pain. No other new concerns today. Review of Systems Review of Systems: All systems reviewed & are unremarkable except as noted in HPI & below Physical Exam Physical Exam: General: No acute distress, uncomfortable Extremities/vascular: --Well perfused. No peripheral edema. --Radial 2+ bilaterally --Right foot dressed. No surrounding erythema/induration Results & Data ([facility]) Vital Signs (Past 12 Hours) Vital Signs Temp Pulse Pulse Resp BP Pulse Ox 09/08/21 16:58 98.1 F 79 18 124/75 96 09/08/21 07:40 98.1 F 77 16 128/71 97 09/08/21 06:26 84 148/82 H PG Care Time/CCT Total # of Minutes Spent Total Time Spent with Patient: Total time spent is greater than 50% in coordination of care (as documented) at patient's floor/unit and/or counseling patient: Coding Level of Care Code 35207 Subseq Hosp Care Lvl 2 Diagnoses Osteomyelitis of great toe of right foot M86.9
--- NOTE | 2021-09-08 17:16 | Hospitalist Progress Note ---
Date of Service September 08, 2021 Assessment & Plan (1) Osteomyelitis of great toe of right foot: Plan: With recurrent infections despite surgical amputation and debridement. Prior surgery was 08/12/2021. She was on clindamycin for 2 weeks after surgery and reports worsening infection after finishing that course. - S/p amputation revision, I&D of great toe amputation site, I&D of medial ankle, tenosynovectomies, and bead implantation with Dr. Montaño on 09/02/2021. - Continued on Daptomycin based off of previous culture data - Post-op care and pain control as per primary team - Do not at this point see the need for ID consult. - Culture of R great toe w/ MRSA as anticipated. Will require at least 6 weeks of IV Daptomycin starting from 09/03 - PICC line inserted successfully on 09/04, functioning well - Patient is for another I&D and possible wound VAC placement tomorrow with Dr. Montaño, would recommend obtaining new set of deep wound cultures at that time (2) Rash and nonspecific skin eruption: Plan: - Very suspicious of shingles given unilateral distribution and vesicle noted over bridge of nose - Certainly with the ongoing stress of recurrent hospitalizations, surgeries, could contribute to zoster eruption - Contact isolation precautions already in place for MRSA, continue these for possible shingles - Initiated Valtrex 1g PO TID on 09/04 (will need 7 days), complete as prescribed - Rash has resolved (3) Left arm numbness: Plan: - resolved w/o further issue - work up was WNL, normal EKG, neg trop x2, neg head CT - suspect a component of this episode was anxiety-driven (4) Diabetes mellitus type 2, uncontrolled: Plan: A1c was 11.1% in 07/2021. - Hold metformin - Continue Lantus 15 units SQ HS -> Patient eating dinner when I saw her, so I think that will be safe. - Sliding scale insulin - Almost certainly contributing to her healing issues & recurrent infections (5) PAD (peripheral artery disease): Plan: Seen by Dr. Lin with angiography on 08/15/2021 showing good blood flow to the wound bed. - Continue ASA - Hold statin while on daptomycin (6) Anemia: Plan: Baseline hgb ~11 - 13. Presently at 12.0. Likely from chronic disease. - Monitor (7) HTN (hypertension): Plan: BP presently 145/80 after surgery. - Continue home lisinopril, metoprolol (8) Depression: Plan: With anxiety. - Continue home nortriptyline & lorazepam (but will make lorazepam PRN instead of standing) (9) Insomnia: Plan: Reports she takes per lorazepam and Ambien both at the same time. - Continue both PRN (10) Blepharitis of eyelid of left eye: Plan: - I have recommended warm compresses - Gently clean off crusting along lid line - Apply erythromycin ointment BID as directed (11) DVT prophylaxis: Plan: - D/w Dr. Montaño this morning, he would prefer ASA 81mg - I would continue to recommend Lovenox but ultimately it is at ortho's discretion - Pt is currently on just once a day ASA 81mg, if ortho wants to utilize for DVT ppx then would at least increase to BID Plan: At this point, I have no further recommendations. Pt is medically stable for discharge home with IV Daptomycin. Advise total of 42 days of IV abx using pod #1 as day #1 of abx treatment. Recommend total of 7 days of oral Valtrex to treat shingles. I have advised repeat deep wound cultures during her surgical I&D on 09/[address] Montaño. Additionally, f/u labs ordered in AM as well as Erythromycin ointment to apply to L eye lid line. Admission and Anticipated Discharge Date Admission Date: September 02, 2021 Subjective Kaushik Kim PA-C asked me to eval patient today due to patient c/o left eye swelling, and redness. She has been using cool compress on her eye. She denies pain or vision changes. She did comment that she is having "another surgery tomorrow" as her foot is not progressing as well as ortho would like. Review of Systems Review of Systems: CONSTITUTIONAL: Denies weight loss/gain, fever and chills, fatigue, malaise, generalized weakness. HEENT: Denies changes in vision and hearing. RESPIRATORY: Denies SOB, cough, wheezing. CV: Denies palpitations, CP, lower extremity edema, orthopnea, PND. GI: Denies abdominal pain, nausea, vomiting and diarrhea. : Denies dysuria and urinary frequency, urgency, hesitancy. MUSCULOSKELETAL: R foot and ankle pain. SKIN: R foot wounds. rash over right eye NEUROLOGICAL: no neuro complaints PSYCHIATRIC: +anxious Physical Exam Physical Exam: GENERAL: 56 yo WD/WN WF who appears older than stated age. NAD. EYES: L inferior eye orbit edema and erythema with yellow crusting and matted lashes noted LUNGS: Nonlabored. CTAB. CARDIOVASCULAR: RRR ABDOMEN: Soft, non-tender and non-distended. BS normal x 4 quad. EXTREMITIES: R ankle tender. Peripheral pulses +2/4. NEUROLOGIC: A&O x3. No neuro deficits appreciated. No appreciable difference in strength between R&L arms/legs. PSYCHIATRIC: Anxious SKIN: R foot wounds dressed/wrapped. Erythematous raised rash over R eyelid with vesicle noted over bridge of nose. Rash appears faded from yesterday. L arm picc . Results & Data Results & Data ([facility]) Vital Signs (Past 12 Hours) Vital Signs Temp Pulse Pulse Resp BP Pulse Ox 09/08/21 16:58 36.7 C 79 18 124/75 96 09/08/21 07:40 36.7 C 77 16 128/71 97 09/08/21 06:26 84 148/82 H Laboratory Results appears no labs have been ordered Diagnostic Findings MRI OF THE RIGHT FOREFOOT COMBO CLINICAL HISTORY: Infection. COMPARISON STUDY: MRI of the right forefoot dated 08/07/2021. Radiographs of the right foot dated 08/09/2021. TECHNIQUE: MRI of the right forefoot is performed utilizing various T1- and T2- weighted sequences in the axial, sagittal, and coronal planes. Contrast-enhanced sequences are acquired following the IV administration of 6.5 cc of Gadavist. The Examination is compromised by motion artifact. FINDINGS: There is postoperative change consistent with resection of the first and second toes through the metatarsophalangeal joints. There is significant marrow edema identified within the distal shaft and head of the first metatarsal. Marrow edema is also present within the head of the second metatarsal. There is corresponding drop in signal on the T1-weighted sequences, with nonspecific postcontrast enhancement. Marrow edema is also seen at the second tarsometatarsal articulation with nonspecific enhancement. There is significant soft tissue edema identified around the first and second metatarsals with nonspecific patchy abnormal enhancement. A wound is suggested distal to the first metatarsal head. No organized/peripherally enhancing fluid collection is seen to suggest abscess. There is nonspecific myositis of the regional musculature. Micrometallic artifact along the plantar aspect of the foot is likely on a postoperative basis. Imaged portions of the plantar fascia appear intact. IMPRESSION: 1. There is postoperative change from resection of the first and second toes as above. The first proximal phalangeal resection is new as compared to 08/10/2021. 2. An open wound is suggested anterior to the first metatarsal head. 3. There is significant marrow edema within the distal aspect of the first and second metatarsals as above, likely representing osteomyelitis. Clinical correlation will be required. 4. There is evidence of surrounding cellulitis. No organized fluid collection is seen to indicate abscess. 5. There is marrow edema at the second tarsometatarsal articulation with nonspecific abnormal enhancement. Although this is likely on a degenerative basis, this has progressed as compared to 08/10/2021. Clinical correlation will be required. Dictated: 09/07/2021 2:30 PM Transcribed: 09/07/2021 2:47 PM Alondra [id number] [facility] Electronically signed by: Finn Bradshaw M.D. 09/07/2021 2:58 PM PG Care Time/CCT Total # of Minutes Spent Total Time Spent with Patient: Total time spent is greater than 50% in coordination of care (as documented) at patient's floor/unit and/or counseling patient: Coding Level of Care Code 41205 Subseq Hosp Care Lvl 2 Diagnoses Osteomyelitis of great toe of right foot M86.9 Rash and nonspecific skin eruption R21 Left arm numbness R20.0 Diabetes mellitus type 2, uncontrolled E11.65 PAD (peripheral artery disease) I73.9 Anemia D64.9 HTN (hypertension) I10 Depression F32.9 Insomnia G47.00 DVT prophylaxis Z29.9 Blepharitis of eyelid of left eye H01.006
[2021-09-08] MEDS: ASPIRIN 81 MG ECTAB PO SCH (21:13)
[2021-09-08] MEDS: ERYTHROMYCIN OP OINT 1 GM PKT OP SCH (21:14)
[2021-09-08] MEDS: NORTRIPTYLINE HCL 25 MG CAP PO SCH (21:15)
[2021-09-08] MEDS: INSULIN GLARGINE SOLOSTAR 100 UNITS/ML 3 ML PEN SQ SCH (21:15)
[2021-09-08] MEDS: rOPINIRole HCL 2 MG TABLET PO SCH (21:16)
[2021-09-08] MEDS: ZOLPIDEM TARTRATE 10 MG TAB PO PRN (21:16)
[2021-09-09] MEDS: HYDROmorphone INJ 0.5 MG/0.5 ML SYR IV PRN ×5 (02:10→22:42)
[2021-09-09] MEDS: ONDANSETRON INJ 2 MG/ML 2 ML VIAL IV PRN (04:34)
[2021-09-09 05:40] LABS: Basophils # (auto) 0.05 K/uL (0-0.2); Basophils % (auto) 0.5 %; Eosinophils # (auto) 0.53 K/uL (0-0.5); Eosinophils % (auto) 5.5 %; Hematocrit (blood only) 33.3 % (37-47); Hemoglobin 10.7 g/dL (12.0-16.0); Immature Granulocytes # (auto) 0.02 K/uL (0.00-0.02); Immature Granulocytes % (auto) 0.2 %; Lymphocytes # (auto) 3.46 K/uL (1.2-3.4); Lymphocytes % (auto) 35.9 %; Mean Corpuscular Hemoglobin 26.7 pg (25-34); Mean Corpuscular Hgb Conc 32.1 g/dL (32-36); Mean Platelet Volume 9.3 fL (7.4-10.4); Monocytes # (auto) 0.86 K/uL (0.11-0.59); Monocytes % (auto) 8.9 %; Neutrophils # (auto) 4.72 K/uL (1.4-6.5); Platelet Count 387 K/uL (130-400); RDW Coefficient of Variation 14.6 % (11.5-14.5); RDW Standard Deviation 44.6 fL (36.4-46.3); Red Blood Count 4.01 M/uL (4.2-5.4); White Blood Count 9.64 K/uL (4.8-10.8)
[2021-09-09] MEDS: INSULIN ASPART PER UNIT SC SCH ×4 (06:02→21:41)
[2021-09-09] MEDS: ACETAMINOPHEN 500 MG TAB PO SCH ×3 (06:03→21:41)
[2021-09-09 06:08] LABS: BUN Creatinine Ratio 31.7 (10-20); Calcium 9.2 mg/dl (8.5-10.1); Creatinine Clr Calc Pharmacy 135.5 ml/min; Est GFR (African American) 132.9 ml/min; Est GFR (Non-African American) 114.7 ml/min
[2021-09-09] MEDS: ERYTHROMYCIN OP OINT 1 GM PKT OP SCH ×2 (08:39→21:37)
[2021-09-09] MEDS: DOCUSATE SODIUM 100 MG CAP PO SCH ×2 (08:39→21:36)
[2021-09-09] MEDS: lisinopril 10 MG TAB PO SCH (08:39)
[2021-09-09] MEDS: METOPROLOL SUCC 50MG EXT REL TAB PO SCH (08:39)
[2021-09-09] MEDS: PREGABALIN 50 MG CAP PO SCH ×2 (08:39→21:38)
[2021-09-09] MEDS: valACYclovir HCL 500 MG TABLET PO SCH ×3 (08:40→21:40)
[2021-09-09] MEDS: MULTIVITAMIN TAB PO SCH (08:40)
--- NOTE | 2021-09-09 08:54 | Pain Management Progress Note ---
Date of Service September 09, 2021 Assessment & Plan (1) Osteomyelitis of great toe of right foot: (2) Wound dehiscence, surgical: (3) Diabetic peripheral neuropathy: Plan: 1. Will initiate hydromorphone BLOCK OPERATOR-refer to BLOCK OPERATOR orders for details 2. Will transition pregabalin to 100 mg twice daily Admission and Anticipated Discharge Date Admission Date: September 02, 2021 Subjective Mrs. Witt is a 56-year-old white female who continues with significant difficulties with pain involving the right foot with history of osteomyelitis of the great toe of the right foot extending into the metatarsal region who is planned for further surgical debridement and possible resection of 1st and 2nd metatarsal head later today. Patient continues to have sharp, burning and throbbing characteristic pain involving the right foot which can extend to the m idfoot and rarely the ankle. She reports hydromorphone is effective at diminishing the severity of her pain to a tolerable level but lasting approximately 45-60 minutes only. She has not been utilizing OxyIR due to lack of efficacy. She is tolerating pregabalin which was initiated 2 days ago at 50 mg twice daily. She has not noticed side effects. She rates her pain at a 4- 8/10. She reports interference of sleep quality and quantity due to her pain complaints. Patient reports no further constitutional complaints. Plan of care discussed with Dr. Deena Sandoval. Pain Assessment Pain Assessment Full Body Front + Back: 1. Right foot-open wound Pain scale - at its best (0-10): 4 Pain scale - at its worst (0-10): 8 Physical Exam Physical Exam: General: Patient sitting up upon entering the room in no acute distress. Speech and thought process appropriate. Mood and affect appropriate. Patient intermittently weepy throughout the visit. Cognition intact. ENT: No evidence of nasal or oral mucosal lesions. Mucous membranes are moist. Poor dentition is noted. Lower extremities: Patient has open wound involving the right foot at the level of the 1st MTP with sutures remaining intact and some generalized erythema. Patient has no appreciable edema of the ankle and pretibial region bilaterally. Her sensation was intact. Strength was 5/5 in the left with dorsi and plantar flexion EHL testing. Patient has some scattered dysesthesias upon palpation of the toes with some diminished sensation. Neurologic: Cranial nerves grossly intact. Ambulatory function not witnessed.
[2021-09-09] MEDS ORDERED: NALOXONE HCL 0.4 MG/1 ML VIAL/CARP IV PRN ×3 (08:55→17:38)
[2021-09-09] MEDS ORDERED: SODIUM CHLORIDE 0.9% 1000ML 1,000 ML IV SCH (09:00)
[2021-09-09] MEDS: HYDROmorphone PCA 30 MG/30 ML IV PRN ×2 (10:22→20:17)
[2021-09-09] MEDS: DAPTOmycin 300 MG in SYRINGE 0 ML IV SCH (13:38)
[2021-09-09] MEDS ORDERED: ATROPINE SULFATE 0.1 MG/ML 10ML SYR IV PRN (15:25)
[2021-09-09] MEDS ORDERED: FLUMAZENIL 0.1 MG/1 ML 10 ML VIAL IV PRN (15:25)
[2021-09-09] MEDS ORDERED: ONDANSETRON INJ 2 MG/ML 2 ML VIAL IV PRN (15:25)
[2021-09-09] MEDS ORDERED: LABETALOL HCL IV 5 MG/ML 20ML IV PRN (15:25)
[2021-09-09] MEDS ORDERED: PROMETHAZINE HCL 12.5 MG in SODIUM CHLORIDE 0.9% 50 ML IV PRN (15:25)
--- NOTE | 2021-09-09 16:12 | Hospitalist Progress Note ---
Date of Service September 09, 2021 Assessment & Plan (1) Osteomyelitis of great toe of right foot: Plan: With recurrent infections despite surgical amputation and debridement. Prior surgery was 08/12/2021. She was on clindamycin for 2 weeks after surgery and reports worsening infection after finishing that course. - S/p amputation revision, I&D of great toe amputation site, I&D of medial ankle, tenosynovectomies, and bead implantation with Dr. Montaño on 09/02/2021. - Continued on Daptomycin based off of previous culture data - Post-op care and pain control as per primary team - Do not at this point see the need for ID consult. - Culture of R great toe w/ MRSA as anticipated. Will require at least 6 weeks of IV Daptomycin starting from 09/03 - PICC line inserted successfully on 09/04, functioning well - Patient is for another I&D and possible wound VAC placement today with Dr. Montaño, would recommend obtaining new set of deep wound cultures (2) Left arm numbness: Plan: - Complained again of this today (09/09) - Just worked up for this on 09/03 w/ normal EKG, neg trop x2, neg head CT - I believe these episodes are all anxiety-driven as she responded to Ativan on 09/03 - When I saw her today, she examined fine, no unilateral weakness - If this becomes an ongoing complaint, can consider MRI brain just to rule that out as a contributing factor but very low index of suspicion (3) Rash and nonspecific skin eruption: Plan: - Very suspicious of shingles given unilateral distribution and vesicle noted over bridge of nose - Certainly with the ongoing stress of recurrent hospitalizations, surgeries, could contribute to zoster eruption - Contact isolation precautions already in place for MRSA, continue these for possible shingles - Initiated Valtrex 1g PO TID on 09/04 (will need 7 days), complete as prescribed (should complete tomorrow 09/10) - Rash has resolved (4) Stye: Plan: - On inner aspect of left lower lid - I have recommended warm compresses - Gently clean off crusting along lid line - Apply erythromycin ointment BID as directed (5) Diabetes mellitus type 2, uncontrolled: Plan: A1c was 11.1% in 07/2021. - Hold metformin - Continue Lantus 15 units SQ HS -> Patient eating dinner when I saw her, so I think that will be safe. - Sliding scale insulin - Almost certainly contributing to her healing issues & recurrent infections (6) PAD (peripheral artery disease): Plan: Seen by Dr. Lin with angiography on 08/15/2021 showing good blood flow to the wound bed. - Continue ASA - Hold statin while on daptomycin (7) Anemia: Plan: Baseline hgb ~11 - 13. Presently at 12.0. Likely from chronic disease. - Monitor (8) HTN (hypertension): Plan: BP presently 145/80 after surgery. - Continue home lisinopril, metoprolol (9) Depression: Plan: With anxiety. - Continue home nortriptyline & lorazepam (but will make lorazepam PRN instead of standing) (10) Insomnia: Plan: Reports she takes per lorazepam and Ambien both at the same time. - Continue both PRN (11) DVT prophylaxis: Plan: - D/w Dr. Montaño this morning, he would prefer ASA 81mg - I would continue to recommend Lovenox but ultimately it is at ortho's discretion - Pt is currently on just once a day ASA 81mg, if ortho wants to utilize for DVT ppx then would at least increase to BID Plan: At this point, I have no further recommendations. Pt is medically stable for discharge home with IV Daptomycin. Advise total of 42 days of IV abx using pod #1 as day #1 of abx treatment, but given her requiring repeat debridement, would restart the clock on her 6 week course of abx Repeat cultures today in OR are strongly advised to r/o polymicrobial infection. Recommend total of 7 days of oral Valtrex to treat shingles. I have advised repeat deep wound cultures during her surgical I&D on 09/[address] Montaño. Additionally, f/u labs ordered in AM as well as Erythromycin ointment to apply to L eye lid line and warm compresses L eye. Admission and Anticipated Discharge Date Admission Date: September 02, 2021 Subjective Pt seen this afternoon at the request of RN due to patient complaining again of left arm tingling and left shoulder pain. When I entered, symptoms had almost completely abated. She was asking if she thought it was anxiety related because she hasn't gotten her Ativan this afternoon yet. She denies chest pain/pressure, shortness of breath, focal weakness, n/v. She is for OR this afternoon for repeat debridement due to nonhealing R foot wounds. L lower eyelid swelling about the same as yesterday and tender. Review of Systems Review of Systems: CONSTITUTIONAL: Denies weight loss/gain, fever and chills, fatigue, malaise, generalized weakness. HEENT: Denies changes in vision and hearing. RESPIRATORY: Denies SOB, cough, wheezing. CV: Denies palpitations, CP, lower extremity edema, orthopnea, PND. GI: Denies abdominal pain, nausea, vomiting and diarrhea. : Denies dysuria and urinary frequency, urgency, hesitancy. MUSCULOSKELETAL: R foot and ankle pain. SKIN: R foot wounds. rash over right eye NEUROLOGICAL: no neuro complaints PSYCHIATRIC: +anxious Physical Exam Physical Exam: GENERAL: 56 yo WD/WN WF who appears older than stated age. NAD. EYES: L inferior eye orbit edema and erythema with yellow crusting and matted lashes noted. Inside bottom lid she has a small pustule noted. L Conjunctiva injected. LUNGS: Nonlabored. CTAB. CARDIOVASCULAR: RRR ABDOMEN: Soft, non-tender and non-distended. BS normal x 4 quad. EXTREMITIES: R ankle tender. Peripheral pulses +2/4. NEUROLOGIC: A&O x3. No neuro deficits appreciated. No appreciable difference in strength between R&L arms/legs. PSYCHIATRIC: Anxious SKIN: R foot wounds dressed/wrapped. Erythematous raised rash over R eyelid with vesicle noted over bridge of nose. Rash appears faded from yesterday. L arm picc. Results & Data Results & [facility] ([facility]) Vital Signs (Past 12 Hours) Vital Signs Temp Pulse Pulse Resp BP Pulse Ox 09/09/21 14:30 37.1 C 82 18 157/79 H 96 09/09/21 13:49 36.9 C 86 17 173/83 H 98 09/09/21 12:43 36.7 C 86 17 139/81 98 09/09/21 12:06 179/87 H 09/09/21 11:50 36.5 C 86 18 165/75 H 100 09/09/21 10:41 36.7 C 90 16 176/83 H 09/09/21 08:29 90 159/82 H 09/09/21 06:09 36.9 C 93 H 93 H 162/73 H 93 Laboratory Results 09/09/21 05:04 09/09/21 05:04 PG Care Time/CCT Total # of Minutes Spent Total Time Spent with Patient: Total time spent is greater than 50% in coordination of care (as documented) at patient's floor/unit and/or counseling patient: Coding Level of Care Code 61467 Subseq Hosp Care Lvl 2 Diagnoses Osteomyelitis of great toe of right foot M86.9 Rash and nonspecific skin eruption R21 Left arm numbness R20.0 Diabetes mellitus type 2, uncontrolled E11.65 PAD (peripheral artery disease) I73.9 Anemia D64.9 HTN (hypertension) I10 Depression F32.9 Insomnia G47.00 DVT prophylaxis Z29.9 Stye H00.019
--- NOTE | 2021-09-09 16:51 | History & Physical Bridge Note ---
Date of Service September 09, 2021 History & Physical Bridge Note I have examined the patient, reviewed the History & Physical and in the interval since the performance of the History & Physical I have noted the following changes of clinical significance: Continued infection of the right medial foot and first metatarsal will require repeat irrigation and debridement of the medial ankle including the flexor hallucis longus, flexor digitorum longus, posterior tibial tendon, fascia and skin. May need partial exostectomy first metatarsal due to osteomyelitis. Possible skin grafting with TheraSkin.
[2021-09-09] MEDS ORDERED: LIDOCAINE 2% 2 ML VIAL/AMP(20MG/ML) INFIL ONE (17:02)
[2021-09-09] MEDS ORDERED: PROPOFOL IV EMULSION 10 MG/ML 20 ML VIAL IV ONE (17:02)
[2021-09-09] MEDS ORDERED: MIDAZOLAM HCL 1 MG/ML 2ML VIAL ONE (17:03)
[2021-09-09] MEDS ORDERED: BUPIVACAINE 0.5 % 5 MG/1 ML MPF 30ML VIAL ONE (17:03)
[2021-09-09] MEDS ORDERED: fentaNYL citrate 100 MCG/2 ML VIAL ONE (17:03)
[2021-09-09] MEDS ORDERED: ceFAZolin 330 MG/ML 1 GM VIAL ONE (17:03)
[2021-09-09] MEDS ORDERED: KETAMINE 50 MG/5 ML SYRINGE ONE (17:39)
[2021-09-09] MEDS: fentaNYL citrate 100 MCG/2 ML VIAL IV PRN ×3 (18:50→19:11)
--- NOTE | 2021-09-09 19:07 | Post Operative Brief Note ---
Immediate Post Op Note v1 Date of Surgery September 09, 2021 Pre & Post Diagnosis Operation Date: 09/02/21 09:35 Pre-Op Diagnosis: (1) Cellulitis of right foot: (2) Wound dehiscence, surgical: Post-Op Diagnosis: (1) Cellulitis of right foot: (2) Wound dehiscence, surgical: Operation Date: 09/09/21 07:00 Pre-Op Diagnosis: WOUND DEHISCENCE RIGHT ANKLE/CELLULITIS, tenosynovitis posterior tibial tendon, tenosynovitis flexor houses longus tendon, tenosynovitis flexor digitorum longus tendon, osteomyelitis first metatarsal head, osteomyelitis second metatarsal head, wound dehiscence great toe amputation flap Post-Op Diagnosis: WOUND DEHISCENCE RIGHT ANKLE/CELLULITIS, tenosynovitis posterior tibial tendon, tenosynovitis flexor houses longus tendon, tenosynovitis flexor digitorum longus tendon, osteomyelitis first metatarsal head, osteomyelitis second metatarsal head, wound dehiscence great toe amputation flap I identified the patient and participated in the time-out.: Yes Procedure Operation Date: 09/02/21 09:35 Actual Procedures p Right Foot Incision and Drainage Right Great Toe Amputation Site, Incision and Drainage Posteromedial Ankle, Right Great Toe Amputation Site Revision, Implantation Stimulan Antibiotic Beads(Right) - Akhil Montaño DO Operation Date: 09/09/21 07:00 Actual Procedures p Irrigation and Debridement Right Medial Ankle Wound including skin, fascia and ligament, irrigation and Debridement Right Great Toe Amputation Site, first metatarsal Head Resection, second metatarsal Head resection - Akhil Montaño DO Surgeon Akhil Montaño DO Firefighter Robb Guzman PA-C Estimated Blood Loss 25 Findings Consistent with Post-Op Diagnosis Specimens Aerobic, anaerobic, Gram stain great toe amputation site Aerobic, anaerobic, Gram stain medial ankle abscess/tenosynovitis Drains Hemovac Drain (10fr single) Anesthesia Type General Regional Complications none Disposition Accompanied Patient To Recovery: Yes
--- NOTE | 2021-09-09 19:25 | Anesthesiology Progress Note ---
Date of Service September 09, 2021 Anesthesia Post Procedure Vital Signs Vital Signs: Temp Pulse Pulse Pulse Resp BP Pulse Ox 09/09/21 19:20 67 13 137/77 97 09/09/21 19:10 36.3 C L 72 15 126/68 94 09/09/21 19:00 66 13 125/66 100 09/09/21 18:50 66 17 113/60 100 09/09/21 18:40 36 C L 66 18 111/59 L 99 09/09/21 14:30 37.1 C 82 18 157/79 H 96 09/09/21 13:49 36.9 C 86 17 173/83 H 98 09/09/21 12:43 36.7 C 86 17 139/81 98 09/09/21 12:06 179/87 H 09/09/21 12:00 195/93 H 09/09/21 11:50 36.5 C 86 18 165/75 H 100 09/09/21 10:41 36.7 C 90 16 176/83 H 09/09/21 08:29 90 159/82 H 09/09/21 06:09 36.9 C 93 H 93 H 162/73 H 93 09/08/21 21:53 36.9 C 81 14 154/79 H 95 Pain Intensity Right Foot: Pain Intensity: 5 Transfer of Care Handoff Completed per policy Notes Mental Status: alert / awake / arousable Patient Amnestic to Procedure: Yes Nausea / Vomiting: adequately controlled Pain: adequately controlled Airway Patency, RR, SpO2: stable & adequate BP & HR: stable & adequate Hydration State: stable & adequate Anesthetic Complications: no major complications apparent
[2021-09-09] MEDS ORDERED: Nursing to Pharmacy Communication SCH (21:15)
[2021-09-09] MEDS: ASPIRIN 81 MG ECTAB PO SCH (21:36)
[2021-09-09] MEDS: NORTRIPTYLINE HCL 25 MG CAP PO SCH (21:37)
[2021-09-09] MEDS: rOPINIRole HCL 2 MG TABLET PO SCH (21:39)
[2021-09-09] MEDS: ZOLPIDEM TARTRATE 10 MG TAB PO PRN (21:42)
[2021-09-09] MEDS: INSULIN GLARGINE SOLOSTAR 100 UNITS/ML 3 ML PEN SQ SCH (21:43)
[2021-09-09] MEDS: LORazepam 1 MG TAB PO PRN (21:43)
--- NOTE | 2021-09-09 22:06 | Communication Note ---
Date of Service: September 09, 2021 Was contacted by patient's RN to let me know that patient expressed desire in discontinuing her [employer] pump and returning to her previous pain control regimen which was dilauded 0.5mg IV q2h prn. I discontinued the [employer] order. The previous dilauded 0.5mg IV q2h prn order was still active so I did not place any new orders. Anish Henderson MD, PGY-2
[2021-09-10] MEDS: HYDROmorphone INJ 0.5 MG/0.5 ML SYR IV PRN ×11 (01:02→23:49)
--- NOTE | 2021-09-10 04:54 | Operative Report (OR) ---
PREOPERATIVE DIAGNOSES: 1. Right medial ankle wound dehiscence. 2. Tenosynovitis of the posterior tibial tendon. 3. Tenosynovitis of the flexor hallucis longus tendon. 4. Tenosynovitis of the flexor digitorum longus tendon. 5. Osteomyelitis of the first metatarsal head. 6. Osteomyelitis of the second metatarsal head. 7. Wound dehiscence of the great toe amputation flap. POSTOPERATIVE DIAGNOSES: 1. Right medial ankle wound dehiscence. 2. Tenosynovitis of the posterior tibial tendon. 3. Tenosynovitis of the flexor hallucis longus tendon. 4. Tenosynovitis of the flexor digitorum longus tendon. 5. Osteomyelitis of the first metatarsal head. 6. Osteomyelitis of the second metatarsal head. 7. Wound dehiscence of the great toe amputation flap. PROCEDURES: 1. Irrigation and debridement of right medial ankle, wound dehiscence including skin, fascia, and li gament. 2. First metatarsal head resection. 3. Second metatarsal head resection. 4. Irrigation and debridement of right great toe amputation site including skin, subcutaneous tissue , fascia. 5. Tenosynovectomy of the posterior tibial tendon. 6. Tenosynovectomy of the flexor digitorum longus tendon. 7. Tenosynovectomy of the flexor hallucis longus tendon. SURGEON: Akhil Montaño DO BREAKER HAND: Robb Guzman PA-C who was present for patient positioning, sterile prep and drape, management of retractors and instruments. He was present through the critical portions of the case in cluding wound closure, application of sterile dressing and transport of the patient to recovery. ANESTHESIA: General, regional. SPECIMENS: None. DRAINS: Hemovac x1. COMPLICATIONS: None. BLOOD LOSS: 25 mL. PERTINENT HISTORY: This is a 56-year-old diabetic with chronic wound problems, status post amputatio n of the great toe, maintained on IV antibiotics after previous debridement on 09/02/2021. The patie nt had a subsequent MRI, which demonstrated osteomyelitis of the first and second metatarsal heads as well as complete wound dehiscence along the medial ankle and dehiscence of the distal toe flap, stat us post amputation. The patient had repeat vascular consultation with no current recommendations for further treatment. The patient was then scheduled for surgery as indicated. All potential risks, benefits, complications, alternatives, rehab potential for incomplete relief of symptoms, need for further surgery, DVT, PE, , persistent pain, swelling, scarring, weakness, ne urovascular injury, wound complications, need for further amputation, DVT, PE, were discussed w ith the patient. The patient decided to proceed with the procedure as indicated. DESCRIPTION OF PROCEDURE: The patient was taken to the operative suite and placed supine on the oper ating room table. After review of consent and identification of proper site, the patient was anesthe tized, LMA was placed. A tourniquet was placed high on the right thigh over cast padding. Right low er extremity was then sterilely prepped and draped in the usual fashion, elevated, and on a bump. Th ere was no exsanguination or use of a pneumatic tourniquet during the case. Scissors and forceps wer e used to remove any sutures from the distal great toe flap and also from the wound dehiscence of the medial ankle. Exposed skin, subcu, and fascia was noted in the medial ankle as well as exposed tend on of the posterior tibial tendon, flexor digitorum longus tendon. There was noted to be abundant te nosynovitis overlying the tendons with remnants of antibiotic beads. Some granulation tissue present . No obvious abscess or infection. The skin appears to be atrophic at the site of the dehiscence. No foul odor was noted. The distal s oft tissue flap of the great toe noted to have partial wound dehiscence with partial eschar, some dis charge and drainage, no abscess fluid. No foul odor. No purulence. After sutures were removed, the great toe flap was then debrided including skin, subcutaneous tissue, and fascia. Once this was com pleted, and more healthy tissue appeared, there was also noted to be remnants of the antibiotic beads which were essentially left in place to allow them to release the antibiotics present. Next, sharp dissection was performed circumferentially around the tissue flap and then incision was made extendin g laterally and medially to expose the first and second metatarsal heads. There is no overt softenin g of the bone or tissue; however, per the recommendation of the MRI, the heads were exposed and Marcy nn retractors were applied around the first and then second metatarsal heads and first and second met atarsal heads were then resected using a sagittal saw to the level of the metatarsal neck. These spe cimens were then passed off for pathology. No abscess pockets were noted. The sesamoids were then al so sharply resected to avoid issues with pressure ulceration. No abscess fluid pockets were encounte red. No other gross necrotic features were detected. After this was completed, attention was then directed toward the medial aspect of the ankle and the t endons were then withdrawn from their tendon sheath and tenosynovectomy was performed of the posterio r tibial tendon, the flexor digitorum longus tendon, and then the flexor hallucis longus tendon using a tenotomy scissor and forcep. After any hypertrophic tenosynovium was resected, the pulsatile lava ge was then used to lavage the distal incision as well as the medial ankle incision until clear with the use of 3 liters saline with Ancef using pulsatile lavage. Once completed, top gloves and top she et were changed. The medial ankle dehiscence was then closed approximately 65% to 80% using a combin ation of traction sutures and vertical mattress sutures with 2-0 nylon. Next, the 10-Thai single l umen Hemovac drain was placed distally to avoid creation of hematoma and then the tissue flap was kuldeep sed using interrupted 2-0 nylon sutures. Once completed, an ankle block was then performed with 30 m L of 0.5% Marcaine plain, right lower extremity. Next, a sterile compressive dressing was applied, o verwrapped with an Mikey wrap. The patient was then awakened and taken to recovery in stable condition . Job ID: [id number]
[2021-09-10] MEDS: oxyCODONE HCL IR 5 MG TAB (IMMEDIATE RELEASE) PO PRN ×3 (05:48→15:06)
[2021-09-10] MEDS: ACETAMINOPHEN 500 MG TAB PO SCH ×3 (05:49→21:44)
[2021-09-10 06:22] LABS: Basophils # (auto) 0.03 K/uL (0-0.2); Basophils % (auto) 0.2 %; Eosinophils % (auto) 4.2 %; Hematocrit (blood only) 30.8 % (37-47); Hemoglobin 9.7 g/dL (12.0-16.0); Immature Granulocytes # (auto) 0.01 K/uL (0.00-0.02); Immature Granulocytes % (auto) 0.1 %; Lymphocytes # (auto) 3.83 K/uL (1.2-3.4); Lymphocytes % (auto) 31.9 %; Mean Corpuscular Hemoglobin 26.3 pg (25-34); Mean Corpuscular Hgb Conc 31.5 g/dL (32-36); Mean Corpuscular Volume 83.5 fL (80-100); Mean Platelet Volume 8.7 fL (7.4-10.4); Monocytes # (auto) 1.06 K/uL (0.11-0.59); Monocytes % (auto) 8.8 %; Neutrophils # (auto) 6.58 K/uL (1.4-6.5); Neutrophils % (auto) 54.8 %; Platelet Count 335 K/uL (130-400); RDW Coefficient of Variation 14.9 % (11.5-14.5); RDW Standard Deviation 45.8 fL (36.4-46.3); Red Blood Count 3.69 M/uL (4.2-5.4); White Blood Count 12.01 K/uL (4.8-10.8)
[2021-09-10 06:49] LABS: BUN Creatinine Ratio 26.2 (10-20); Calcium 8.2 mg/dl (8.5-10.1); Creatinine Clr Calc Pharmacy 132.3 ml/min; Est GFR (African American) 131.9 ml/min; Est GFR (Non-African American) 113.8 ml/min; Potassium 3.8 mmol/L (3.5-5.1)
[2021-09-10] MEDS: MULTIVITAMIN TAB PO SCH (07:34)
[2021-09-10] MEDS: DOCUSATE SODIUM 100 MG CAP PO SCH ×2 (07:34→21:40)
[2021-09-10] MEDS: valACYclovir HCL 500 MG TABLET PO SCH ×3 (07:35→21:43)
[2021-09-10] MEDS: lisinopril 10 MG TAB PO SCH (07:35)
[2021-09-10] MEDS: METOPROLOL SUCC 50MG EXT REL TAB PO SCH (07:35)
[2021-09-10] MEDS: ERYTHROMYCIN OP OINT 1 GM PKT OP SCH ×2 (07:36→21:41)
[2021-09-10] MEDS: PREGABALIN 50 MG CAP PO SCH ×2 (07:37→21:43)
--- NOTE | 2021-09-10 08:35 | Orthopedic Progress Note ---
Date of Service September 10, 2021 Assessment & Plan (1) Osteomyelitis of great toe of right foot: Plan: POD#1 PROCEDURES: 1. Irrigation and debridement of right medial ankle, wound dehiscence including skin, fascia, and ligament. 2. First metatarsal head resection. 3. Second metatarsal head resection. 4. Irrigation and debridement of right great toe amputation site including skin, subcutaneous tissue, fascia. 5. Tenosynovectomy of the posterior tibial tendon. 6. Tenosynovectomy of the flexor digitorum longus tendon. 7. Tenosynovectomy of the flexor hallucis longus tendon. Patient is POD#1 repeat I&D. Continue IV antibiotics. NWB Right lower extremity. Plan on dressing change tomorrow and then daily thereafter. Appreciate Pain management input. Appreciate Dr Lin input. Repeat US showing no significant stenosis. AM labs demonstrate mild leukocytosis likely reactive due to surgical stress. Will follow. Hemoglobin drop to 9.7 from 10.7 yesterday likely due to surgical loss/dilutional. (2) Cellulitis of right foot: Admission and Anticipated Discharge Date Admission Date: September 02, 2021 Subjective Patient is POD#1 repeat I&D. She has complaint of pain and is tired but otherwise feels well. Denies chest pain, sob, dizziness, fever, chills, n/v/d. Review of Systems Review of Systems: All systems reviewed & are unremarkable except as noted in Subjective Physical Exam Physical Exam: Dressing to right foot is c/d/i, visible toes are mobile. Sensation distally is intact. Cap refill <3s. Hemovac drain intact. No calf tenderness. Constitutional: well developed and well nourished; no acute distress Results & Data ([facility]) Vital Signs (Past 12 Hours) Vital Signs Temp Pulse Resp BP Pulse Ox 09/10/21 07:40 36.9 C 81 18 101/53 L 97 09/10/21 03:31 36.4 C L 83 16 100/62 97 09/09/21 23:37 36.4 C L 72 16 115/61 100 09/09/21 21:38 72 16 148/53 H 100
[2021-09-10] MEDS: INSULIN ASPART PER UNIT SC SCH ×4 (08:46→21:41)
[2021-09-10] MEDS: DAPTOmycin 300 MG in SYRINGE 0 ML IV SCH (13:39)
[2021-09-10] MEDS: LORazepam 1 MG TAB PO PRN ×2 (15:08→21:53)
[2021-09-10] MEDS: MELOXICAM 7.5 MG TAB PO SCH (16:57)
[2021-09-10] MEDS: ASPIRIN 81 MG ECTAB PO SCH (21:40)
[2021-09-10] MEDS: INSULIN GLARGINE SOLOSTAR 100 UNITS/ML 3 ML PEN SQ SCH (21:42)
[2021-09-10] MEDS: NORTRIPTYLINE HCL 25 MG CAP PO SCH (21:42)
[2021-09-10] MEDS: rOPINIRole HCL 2 MG TABLET PO SCH (21:43)
[2021-09-10] MEDS: ZOLPIDEM TARTRATE 10 MG TAB PO PRN (21:46)
[2021-09-11] MEDS: HYDROmorphone INJ 0.5 MG/0.5 ML SYR IV PRN ×8 (02:19→23:36)
[2021-09-11] MEDS: oxyCODONE HCL IR 5 MG TAB (IMMEDIATE RELEASE) PO PRN ×4 (03:46→21:40)
[2021-09-11] MEDS: ACETAMINOPHEN 500 MG TAB PO SCH ×3 (06:28→21:41)
[2021-09-11] MEDS: LORazepam 1 MG TAB PO PRN ×3 (07:09→20:25)
[2021-09-11] MEDS: lisinopril 10 MG TAB PO SCH (07:25)
[2021-09-11] MEDS: METOPROLOL SUCC 50MG EXT REL TAB PO SCH (07:25)
[2021-09-11] MEDS: valACYclovir HCL 500 MG TABLET PO SCH (07:25)
[2021-09-11] MEDS: MELOXICAM 7.5 MG TAB PO SCH (07:25)
[2021-09-11] MEDS: MULTIVITAMIN TAB PO SCH (07:25)
[2021-09-11 07:26] LABS: Basophils # (auto) 0.02 K/uL (0-0.2); Basophils % (auto) 0.2 %; Eosinophils # (auto) 0.57 K/uL (0-0.5); Eosinophils % (auto) 5.7 %; Hematocrit (blood only) 31.1 % (37-47); Hemoglobin 9.8 g/dL (12.0-16.0); Immature Granulocytes # (auto) 0.01 K/uL (0.00-0.02); Immature Granulocytes % (auto) 0.1 %; Lymphocytes # (auto) 3.59 K/uL (1.2-3.4); Lymphocytes % (auto) 35.8 %; Mean Corpuscular Hemoglobin 26.5 pg (25-34); Mean Corpuscular Hgb Conc 31.5 g/dL (32-36); Mean Corpuscular Volume 84.1 fL (80-100); Monocytes # (auto) 0.77 K/uL (0.11-0.59); Monocytes % (auto) 7.7 %; Neutrophils # (auto) 5.07 K/uL (1.4-6.5); Neutrophils % (auto) 50.5 %; Platelet Count 336 K/uL (130-400); RDW Coefficient of Variation 14.9 % (11.5-14.5); RDW Standard Deviation 46.1 fL (36.4-46.3); White Blood Count 10.03 K/uL (4.8-10.8)
[2021-09-11] MEDS: ERYTHROMYCIN OP OINT 1 GM PKT OP SCH ×2 (07:26→20:26)
[2021-09-11] MEDS: DOCUSATE SODIUM 100 MG CAP PO SCH ×2 (07:26→20:26)
[2021-09-11] MEDS: PREGABALIN 50 MG CAP PO SCH ×2 (07:27→20:25)
[2021-09-11 07:45] LABS: Creatinine Clr Calc Pharmacy 138.9 ml/min; Est GFR (Non-African American) 115.6 ml/min
[2021-09-11] MEDS: INSULIN ASPART PER UNIT SC SCH ×4 (08:39→20:28)
--- NOTE | 2021-09-11 08:47 | Orthopedic Progress Note ---
Date of Service September 11, 2021 Assessment & Plan (1) Osteomyelitis of great toe of right foot: Plan: POD#2 PROCEDURES: 1. Irrigation and debridement of right medial ankle, wound dehiscence including skin, fascia, and ligament. 2. First metatarsal head resection. 3. Second metatarsal head resection. 4. Irrigation and debridement of right great toe amputation site including skin, subcutaneous tissue, fascia. 5. Tenosynovectomy of the posterior tibial tendon. 6. Tenosynovectomy of the flexor digitorum longus tendon. 7. Tenosynovectomy of the flexor hallucis longus tendon. Patient is POD#2 repeat I&D. Continue IV antibiotics. NWB Right lower extremity. Dressing changed today, plan on daily dressing changes. Appreciate Pain management input. Appreciate Dr Lin input. Repeat US showing no significant stenosis. AM labs: Leukocytosis is resolved. Hemoglobin stable today at 9.8. Discharge planning: Patient will require 6 weeks of IV antibiotics, plan on discharge home when stable. (2) Cellulitis of right foot: Admission and Anticipated Discharge Date Admission Date: September 02, 2021 Subjective Patient is POD#2 repeat I&D. She has complaint of pain and is tired but otherwise feels well. Patient states she had a rough night with her pain. Was started on Mobic yesterday by Dr. Montaño. Denies chest pain, sob, dizziness, fever, chills, n/v/d. Review of Systems Review of Systems: All systems reviewed & are unremarkable except as noted in Subjective Physical Exam Physical Exam: Dressing to right foot is c/d/i dressing removed. The amputation site incision is clean dry and intact, mild pink erythema. No drainage. Medial incision is intact, mild drainage and mild maceration with mild surrounding erythema improved from prior. Hemovac drain was removed, tip intact. New dressing applied. Toes were mobile, distally sensation and neurovascular status intact. Constitutional: well developed and well nourished; no acute distress Results & Data ([facility]) Vital Signs (Past 12 Hours) Vital Signs Temp Pulse Resp BP Pulse Ox 09/11/21 08:10 36.8 C 86 16 136/69 98 09/10/21 21:35 36.9 C 86 16 136/74 98
[2021-09-11] MEDS: DAPTOmycin 300 MG in SYRINGE 0 ML IV SCH (13:03)
[2021-09-11] MEDS: ZOLPIDEM TARTRATE 10 MG TAB PO PRN (20:24)
[2021-09-11] MEDS: NORTRIPTYLINE HCL 25 MG CAP PO SCH (20:25)
[2021-09-11] MEDS: ASPIRIN 81 MG ECTAB PO SCH (20:25)
[2021-09-11] MEDS: rOPINIRole HCL 2 MG TABLET PO SCH (20:26)
[2021-09-11] MEDS: INSULIN GLARGINE SOLOSTAR 100 UNITS/ML 3 ML PEN SQ SCH (20:27)
[2021-09-12] MEDS: HYDROmorphone INJ 0.5 MG/0.5 ML SYR IV PRN ×4 (01:46→12:22)
[2021-09-12] MEDS: oxyCODONE HCL IR 5 MG TAB (IMMEDIATE RELEASE) PO PRN ×2 (04:10→10:30)
[2021-09-12] MEDS: ACETAMINOPHEN 500 MG TAB PO SCH ×2 (05:01→13:21)
[2021-09-12] MEDS: LORazepam 1 MG TAB PO PRN (06:47)
[2021-09-12] MEDS: CYCLOBENZAPRINE HCL 10 MG TAB PO PRN (06:47)
[2021-09-12] MEDS: lisinopril 10 MG TAB PO SCH (07:44)
[2021-09-12] MEDS: MELOXICAM 7.5 MG TAB PO SCH (07:45)
[2021-09-12] MEDS: MULTIVITAMIN TAB PO SCH (07:45)
[2021-09-12] MEDS: METOPROLOL SUCC 50MG EXT REL TAB PO SCH (07:45)
[2021-09-12] MEDS: ERYTHROMYCIN OP OINT 1 GM PKT OP SCH (07:45)
[2021-09-12] MEDS: DOCUSATE SODIUM 100 MG CAP PO SCH (07:45)
[2021-09-12] MEDS: INSULIN ASPART PER UNIT SC SCH ×2 (08:26→12:25)
[2021-09-12] MEDS ORDERED: PREGABALIN 100 MG CAP PO SCH (09:00)
--- NOTE | 2021-09-12 13:16 | Orthopedic Progress Note ---
Date of Service September 12, 2021 Assessment & Plan (1) Osteomyelitis of great toe of right foot: Plan: POD#3 PROCEDURES: 1. Irrigation and debridement of right medial ankle, wound dehiscence including skin, fascia, and ligament. 2. First metatarsal head resection. 3. Second metatarsal head resection. 4. Irrigation and debridement of right great toe amputation site including skin, subcutaneous tissue, fascia. 5. Tenosynovectomy of the posterior tibial tendon. 6. Tenosynovectomy of the flexor digitorum longus tendon. 7. Tenosynovectomy of the flexor hallucis longus tendon. Patient is POD#3 repeat I&D. Continue IV antibiotics. NWB Right lower extremity. Dressing changed today, plan on daily dressing changes. Appreciate Pain management input. Appreciate Dr Lin input. Repeat US showing no significant stenosis. Discussed antibiotic dosing with Dr. Montaño today. We will continue her Daptomycin 300mg IV daily for 4-[address] Montaño's request. Previous admit antibx was Clindamycin which did not appear to be working well. No cx's done from 2nd washout. 1st washout showing MRSA. Sensitive to Daptomycin. Discharge planning: Patient will require 4-6 weeks of IV antibiotics to be managed by Dr. Montaño. CPK and CRP ordered for today. Unless CPK would be elevated (last draw 09/10 22), will plan for discharge to home today. HI planning - Home Health services for IV antibx and picc line care. Follow up with Dr. Montaño in 1 week. (2) Cellulitis of right foot: Admission and Anticipated Discharge Date Admission Date: September 02, 2021 Subjective POD 3 Pt up ambulating in room with walker. Feeling good today. Pain appears controlled. No new complaints. Overall feeling better. Physical Exam Physical Exam: Dressings removed. Wounds are well approximated. Small amount of serous drainage noted on medial midfoot dressing. No purulence. No foul odor. Mild erythema around both wound edges. Less discomfort per patient. Wounds redressed. Results & Data ([facility]) Vital Signs (Past 12 Hours) Vital Signs Temp Pulse Resp BP Pulse Ox 09/12/21 07:19 36.9 C 85 17 179/84 H 97 Diagnostic Findings Name: EILEEN ESCOBAR Acct: [id number] Status: ADM IN : 1965 [facility] [place] Date: 09/02/21 Age: 56 Sex: F Dis Date: Loc: Medical/Surgical/Ortho 3 [facility]/Bed: [id number] Spec: [id number] Collected: 09/02/21-UNK Received: 09/02/21-[address]: Akhil Montaño D.O. Source: Toe,Right Great OV Order: Ordered: Aer/Lucero Cult/Sm Comments: Comment 2. Right Great Toe Procedure Result Verified Site Gram Stain Final 09/02/21-174 Gram Stain Result Many WBCs Seen Few Gram Positive Cocci Aero/Lucero Cult Final 09/07/21-1230 Organism 1 Staph aureus MRSA Quantity Moderate Sens Sensitivities to Follow No Anaerobes Isolated No Anaerobes Isolated MRSA RX M.I.C. --- --------- Clindamycin S <=0.5 Daptomycin S <=0.5 Erythromycin R >4 Oxacillin R >2 Rifampin S <=1 Tetracycline S <=4 Trimeth/Sulfa S <=0.5/9.5 Vancomycin S 2 S = SENSITIVE I = INTERMEDIATE R = RESISTANT
[2021-09-12] MEDS: DAPTOmycin 300 MG in SYRINGE 0 ML IV SCH (13:29)
--- NOTE | 2021-09-13 12:50 | Discharge Summary ---
Date of Service September 13, 2021 Admission HPI Per Admitting Provider This is a patient had undergone a great toe amputation on the right foot as well as an I&D of an abscess at the posterior medial aspect of the ankle approximately 3 weeks ago. She was seen yesterday in the office with increasing pain and increasing erythema. She is now being set up for repeat I&D of both sites. Admission Exam Per Admitting Provider Physical Exam Constitutional: well developed and well nourished; no acute distress ENMT: external ear and nose normal, oropharynx normal Neck: trachea midline Respiratory: normal respiratory effort, lungs clear to auscultation Cardiovascular: Rate/Rhythm: regular rate and regular rhythm Gastrointestinal (Abdomen): normal bowel sounds, soft, nontender, no hepatosplenomegaly Musculoskeletal: Ankle: + skin erythema and + joint line tenderness (ankle) (Right foot great toe amputation site, posterior medial ankle); no ecchymosis Skin: no rashes, warm and dry Neurologic: + abnormal touch/pain/proprioception Psychiatric: A+Ox3, euthymic affect Speech: normal rate/rhythm/volume of speech Lymphatic: no cervical or axillary lymphadenopathy Principal Diagnosis 1. Right medial ankle wound dehiscence. 2. Tenosynovitis of the posterior tibial tendon. 3. Tenosynovitis of the flexor hallucis longus tendon. 4. Tenosynovitis of the flexor digitorum longus tendon. 5. Osteomyelitis of the first metatarsal head. 6. Osteomyelitis of the second metatarsal head. 7. Wound dehiscence of the great toe amputation flap. Discharge Data Allergies Allergy/AdvReac Type Severity Reaction Status Date / Time morphine Allergy Severe blisters Verified 09/02/21 11:09 in mouth Sulfa (Sulfonamide Allergy Severe rash/swelli Verified 09/02/21 11:09 Antibiotics) ng vancomycin Allergy Intermediate YULIYA Verified 09/02/21 11:09 SYNDROME Consultations 09/02/21 16:57 Consult Hospitalist Routine 09/06/21 20:33 Consult Pain Management Routine 09/07/21 10:43 Consult Cardiology Routine Procedures Performed Operation Date: 09/02/21 09:35 Actual Procedures p Right Foot Incision and Drainage Right Great Toe Amputation Site, Incision and Drainage Posteriomedial Ankle, Right Great Toe Amputation Site Revision, Implantation Stimulan Antibiotic Beads(Right) - Akhil Montaño DO Operation Date: 09/09/21 07:00 Actual Procedures p Irrigation and Debridement Right Medial Mid Foot Wound, Irrigation and Debridement Right Great Toe Amputation Site, Metatarsal Head Resection 1st and 2nd Metatarsal Heads(Right) - Akhil Montaño DO Ordered Studies 09/03/21 09:43 CT head/brain wo con Stat 09/07/21 00:00 MR foot RT wo/w con Routine 09/07/21 17:14 US arterial duplex LE RT Routine Hospital Course (1) Cellulitis of right foot: Patient is a 56-year-old white female who is readmitted to [facility] with recurrent cellulitis and drainage of her right foot. Patient had undergone a great toe amputation of the right foot and has been discharged home on August 18. She was discharged to home on oral antibiotics of clindamycin. Patient was seeing Dr. Montaño postoperatively in the office. Patient returns the office with increased erythema and pain in the right foot. She was admitted back in the hospital 09/01/2021 and underwent irrigation debridement of her right great toe amputation site as well as irrigation debridement of Right medial ankle wound dehiscence. Stimulan beads were also implanted. Patient was started on daptomycin for antibiotic choice by Dr. Montaño. She was continued on these antibiotics during her stay. Patient was then seen over the next several days for dressing changes. Cultures that were taken during the time of surgery on 09/02/2021 ended up showing MRSA sensitive to the daptomycin. She was continued on the daptomycin per Dr. Montaño's request. Patient began experiencing some wound changes of her incision sites by 09/05/2021 with some slight widening of the medial right foot wound. Over the next several days she began to continue to have wound changes that were worsening with increased purulence as well as wound dehiscence with the medial wound. Dr. Lin was requested to reevaluate the patient for any possible vascular problems. Repeat MRI was then ordered as well. Dr. Lin saw the patient and found no new vascular problems that would be impeding healing. MRI was showing likely osteomyelitis of the first and second metatarsal heads. It was felt that the patient was going to need repeat irrigation debridement and likely metatarsal head resection. Patient continued to have increasing pain and David Sandhu PA-C was consulted from pain management to help manage her pain medications. She was then taken back to surgery by Dr. Montaño on 09/09/2021 for repeat irrigation debridement of both wounds and also metatarsal head resection of the first and second metatarsals. Postoperatively after the second surgery, the patient was being stable. Her dressings were changed and wounds were remaining intact. Mild maceration was noted with mild drainage. Mild erythema surrounding the wounds was present but improving. By 09/12/2021, dressing changed showed that her wounds continue to remain stable. She had only very mild drainage from her wound over the medial aspect of the foot which was serous in nature. Erythema continues to improve. Her pain control was much better and patient stated that she was having much less pain since the surgery. Dr. Montaño had planned for IV daptomycin for 4 to 6 weeks secondary to her previous failure on clindamycin. The PICC line had been placed earlier. Home health services were arranged by case management for home IVs as well as PICC line care. She was remaining stable and was felt she be discharged home on 09/12/2021 Total Time Total Time Spent Total Time Spent (In Minutes): 20 Discharge Plan Discharge Items Patient Disposition: Home - Home Health Services Reason For Visit: WOUND DEHISCENE RIGHT FOOT/CELLULITIS Discharge Diagnosis: Wound Dehiscence Right Foot/Cellulitis Activity: Per Instructions section Weightbearing: Right non-weightbearing Non-emergency contact: Surgeon Call non-emergency contact if: your pain is worsening, your temperature is above 101.5, your wound has increased redness and your wound has increased drainage Follow-up/Referrals: Ashok Clemons MD [Primary Care Provider] - Akhil Montaño DO [Surgeon] - 09/15/21 1:50 pm (Follow up in 1 week for wound check. APPT WITH DR MONTAÑO AT [facility]) Diet: Carb Consistent or DM2 Addtl Attending Provider Instructions: YOU WILL BE RECIEVING IV ANTIBIOTICS AT HOME FOR UP TO 6 WEEKS. HOME HEALTH SERVICES WILL BE ABLE TO TAKE CARE OF YOUR PICC LINE AND SHOW YOU HOW TO ADMINISTER YOUR ANTIBIOTICS. YOU WILL HAVE WEEKLY LAB DRAWS DONE BY HOME HEALTH SERVICES. RESULTS OF THESE LABS WILL BE SENT TO DR. MONTAÑO ACTIVITY RECOMMENDATIONS: Limitations: No weight bearing to affected limb at all times. SPECIAL CARE INSTRUCTIONS: * DAILY DRESSING CHANGES. YOU CAN USE ADAPTIC NONSTICK GAUZE, 4X4'S, ABD'S, KERLIX WRAP, AND ODELL WRAP. * Some drainage onto the dressing is normal and is no cause for alarm. * Some swelling is natural especially after walking. * When resting, keep your foot elevated above the level of your heart. * Call [facility] if you notice: -Increased drainage -Fever over 101 degrees F -Severe constant pain * DAILY DRESSING CHANGES FOR THE FIRST WEEK. THEREAFTER, IF THE WOUNDS ARE DRY, YOU MAY CHANGE THE DRESSING EVERY OTHER DAY. FOLLOW UP VISIT WITH DR. MONTAÑO If appointment is not already scheduled: Please call [facility] after you get home today to schedule a follow-up appointment for [address] Montaño at . Stand-Alone Forms: [facility], Smoking Cessation Medications and DC Order Prescriptions: New acetaminophen [Tylenol Extra Strength] 500 mg Tablet 1,000 mg PO Q8 14 Days Qty: 84 RF: 0 daptomycin 500 mg recon soln 300 mg IV DAILY 40 Days Qty: 10 RF: 0 oxycodone 5 mg Tablet 5 - 10 mg PO Q4H MDD 8 PRN (Reason: pain) Qty: 36 RF: 0 Continued (DME) lancets [OneTouch UltraSoft Lancets] Misc See Rx Instructions .ROUTE .MEDSUPPLY Qty: 100 RF: 0 lisinopril [Zestril] 10 mg tablet 10 mg PO QAM RF: 0 lorazepam [Ativan] 1 mg Tablet 1 mg PO TID Qty: 21 RF: 0 albuterol sulfate [Proventil HFA] 90 mcg/actuation HFA aerosol inhaler 1 puff inhalation QID PRN (Reason: Shortness Of Breath) RF: 0 metoprolol succinate [Toprol XL] 50 mg tablet extended release 24 hr 50 mg PO QAM RF: 0 ergocalciferol (vitamin D2) 1,250 mcg (50,000 unit) Capsule 50,000 unit PO Ortiz 30 Days Qty: 4 RF: 0 metformin 500 mg tablet 500 mg PO BID Qty: 60 RF: 0 Basaglar KwikPen U-100 Insulin 100 unit/mL (3 mL) insulin pen 15 unit SUBCUT HS Qty: 1 RF: 0 insulin lispro [Humalog KwikPen Insulin] 100 unit/mL insulin pen 3 unit SUBCUT TIDM Qty: 1 RF: 0 cyclobenzaprine 10 mg Tablet 10 mg PO TID RF: 0 aspirin [Aspirin Low Dose] 81 mg Tablet,Delayed Release (Dr/Ec) 81 mg PO QPM RF: 0 ropinirole 2 mg Tablet 4 mg PO HS RF: 0 zolpidem [Ambien] 10 mg Tablet 10 mg PO HS RF: 0 nortriptyline [Pamelor] 50 mg Capsule 100 mg PO HS RF: 0 Discontinued atorvastatin [Lipitor] 40 mg tablet 40 mg PO HS RF: 0 azithromycin [Zithromax] 250 mg Tablet 250 mg PO BID RF: 0 oxycodone-acetaminophen [Percocet] 5-325 mg Tablet 1 tab PO Q6H PRN (Reason: Pain) RF: 0 Discharge Orders: Discharge Order (Routine); Ordered 09/12/21 Ordered By: Kaushik Kim Admission Data Admit Date/Time: 09/02/21 13:30 Attending Provider: Akhil Montaño Admit Provider: Akhil Montaño Primary Care Provider: Ashok Clemons Other Providers: [facility],Home Healthcare ; Jon Whaley Upendra ; Adonis Lin Other Interventions: Discharge Summary Assessment (RN) Last Done: 09/12/21 14:30
== END 2021-09-12 15:15 | disposition home health service (06) | DRG 902 ==
LOC: ASU 10:40 → 3N 13:30 → SUPCPDRO 13:30

== ENCOUNTER 2021-09-26 10:55 | Inpatient (IN) ==
--- NOTE | 2021-09-26 15:03 | Emergency Department Note ---
History of Present Illness General Chief complaint: Foot Injury/Pain Time Seen by Provider: 09/26/21 14:42 History of Present Illness Maximum Pain Intensity: 10 56-year-old female presents to the ED with a chief complaint of right foot and ankle pain as well as increasing redness despite being on daptomycin for infection of a diabetic foot wound. The patient had cellulitis of the right foot as well as a wound dehiscence that was operated on the last time on September 09. She has been on antibiotics in the form of IV daptomycin since. She was noted to have osteomyelitis of the first and second metatarsal heads. She reports over the last 2 days she has had increasing pain in the foot as well as the medial ankle. The pain in the foot is in the area of the first metatarsal distally. The pain in the ankle is in the right medial malleolus. She also reports some increasing redness in the area of the right medial malleolus and there is redness in the distal anterior tibia that was not present previously. Home health nursing suggested the patient come in for evaluation. Right great toe culture showed MRSA on September 02, 2021. Home Medications Medication Instructions Recorded Confirmed Type aspirin 81 mg tablet,delayed 81 mg PO QPM 10/19/20 09/26/21 History release (Aspirin Low Dose) cyclobenzaprine 10 mg tablet 10 mg PO TID 10/19/20 09/26/21 History nortriptyline 50 mg capsule 100 mg PO HS 10/19/20 09/26/21 History (Pamelor) ropinirole 2 mg tablet 4 mg PO HS 10/19/20 09/26/21 History zolpidem 10 mg tablet (Ambien) 10 mg PO HS 10/19/20 09/26/21 History lancets (OneTouch UltraSoft #100 ea 11/12/20 07/14/21 History Lancets) lorazepam 1 mg tablet (Ativan) 1 mg PO TID #21 tab 01/28/21 09/26/21 Rx albuterol sulfate 90 mcg/actuation 1 puff INHALATION QID PRN 03/05/21 09/26/21 History aerosol inhaler (Proventil HFA) metoprolol succinate 50 mg 50 mg PO QAM 03/05/21 09/26/21 History tablet,extended release 24 hr (Toprol XL) insulin glargine 100 unit/mL (3 15 unit SUBCUT HS #1 ml 08/18/21 09/26/21 Rx mL) subcutaneous pen (Basaglar KwikPen U-100 Insulin) insulin lispro 100 unit/mL 3 unit SUBCUT TIDM #1 ml 08/18/21 09/26/21 Rx subcutaneous pen (Humalog KwikPen (U-100) Insulin) metformin 500 mg tablet 500 mg PO BID #60 tab 08/18/21 09/26/21 Rx daptomycin 500 mg intravenous 300 mg IV DAILY 40 Days #10 ea 09/06/21 09/26/21 Rx solution oxycodone 5 mg tablet 5 - 10 mg PO Q4H PRN #36 tab MDD 8 09/12/21 09/26/21 Rx Allergies Allergy/AdvReac Type Severity Reaction Status Date / Time morphine Allergy Severe blisters Verified 09/26/21 15:05 in mouth Sulfa (Sulfonamide Allergy Severe rash/swelli Verified 09/26/21 15:05 Antibiotics) ng vancomycin Allergy Intermediate YULIYA Verified 09/26/21 15:05 SYNDROME Past Med/Surg History Medical History 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 No issues per anesthesia postop progress note. Cellulitis Chronic back pain Depression Diabetic peripheral neuropathy DM2 (diabetes mellitus, type 2) IDDM, A1c 07/2021-11% Gastritis GIB (gastrointestinal bleeding) History of amputation of great toe Hyperlipidemia Insulin dependent diabetes mellitus Nonobstructive atherosclerosis of coronary artery Numbness of lower extremity Peripheral neuropathy Right second toe ulcer Seizures Surgical History History of cardiac cath done at [facility]; 09/22/19; LM - mild luminal irregularities. LAD - mid 20-30%, distal with myocardial bridge & 30% stenosis. L Cx - mild luminal irregularities. RCA - proximal <30% stenosis; mid/distal vessel mild plaques. PDA - mild luminal irregularities. History of esophagogastroduodenoscopy (EGD) Family History Mother , age 63 Myocardial infarction Father , age 68 or 69 Myocardial infarction Brother S/P CABG (coronary artery bypass graft) Sister Myocardial infarction x 3; she is 57yo Social History Smoking Status: Never smoker Tobacco Type: Cigarettes packs per day: 1; Years Smoked: 20; Cigarettes Per Day: 1 PPD for 20 years; Second Hand Exposure: No; Hx Alcohol Use: No Hx Substance Use: Yes Last Used Substance: Unknown Last Used Substance Other:: couple weeks ago Substance Use Type Other:: Medical Marijuana Preferred Language: Bulgarian Communication Ability: Effective Tile Sprayer Required: No Beliefs That Will Affect Care: None marital status: Current Living Situation: Spouse 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; 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 How many Children do You have: 3 other: raising a grandchild as well; lives in [place] Feel Safe at Home: Yes Assistive Devices: Glasses and Walker Review of Systems A total of 10 systems reviewed and were otherwise negative Physical Exam Vital Signs Vital Signs - 24 hr 09/26/21 11:37 Temperature 36.5 C Temperature Source Temporal Artery Scan Pulse Rate 110 H Pulse Rhythm Regular Pulse Strength Normal Respiratory Rate 20 Respiratory Effort / Characteristics Non-Labored Spontaneous Respiratory Depth Normal Respiratory Pattern Regular Blood Pressure 176/81 H Blood Pressure Mean 112 Blood Pressure Position Sitting Pulse Oximetry 97 Oxygen Delivery Method Room Air Sepsis Recent Fever Within 48 Hours No Sepsis New/Unexplained Change in Mental Status No Sepsis Action Taken by Nursing No Action Required CONSTITUTIONAL/VITAL SIGNS: Reviewed / noted above. GENERAL: Non-toxic in appearance. INTEGUMENTARY: Warm, dry, and [place]. HEAD: Normocephalic. EYES: without scleral icterus or trauma. ENT/OROPHARYNX: clear and moist. LYMPHADENOPATHY/NECK: Is supple without lymphadenopathy or meningismus. RESPIRATORY: Clear to auscultation bilaterally. No increased work of breathing. CARDIOVASCULAR: Regular rate and rhythm. GI/ABDOMEN: Soft and nontender. No organomegaly or pulsatile mass. EXTREMITIES: Warm and well perfused. There is a dehisced wound in the right medial malleolus area with surrounding erythema that appears somewhat chronic in nature although the patient reports that this is worsened over the past couple of days. There is no discharge from the wound. There are sutures in place. There is also noted to be amputation of the right first and second toes with adequate healing of the wound and sutures are still in place. There is erythema and some tenderness primarily on the medial aspect of the foot in the area of the distal first metatarsal. There is also some erythema to the distal anterior tibia that is also tender to palpation. This is reportedly new, per the patient in the past 2 days. BACK: No CVA tenderness. NEUROLOGICAL: Intact without focal deficits. PSYCHIATRIC: normal affect. MUSCULOSKELETAL: Normally developed with good muscle tone. TRIAGE NURSING DOCUMENTATION REVIEWED. Course Administered Medications Hydromorphone HCl (Hydromorphone Inj 0.5 Mg/0.5 Ml Syr) 0.5 mg IV Q15M PRN PRN Reason: Pain Stop: 10/10/21 14:52 Last Admin: 09/26/21 15:12 Dose: 0.5 mg Documented by: [id number] Medical Decision Making Differential Diagnosis Cellulitis, abscess, MRSA infection, DVT, necrotizing fasciitis, dermatitis, drug eruption, allergic reaction, as well as other pathologies. Medical Records Attestation: I reviewed the patient's medical records. Home Medications Current Medication List: was personally reviewed by me Laboratory Data Attestation: I reviewed the patient's lab results. Result diagrams: 09/26/21 15:22 09/26/21 15:22 Lab Results 09/26/21 09/26/21 09/26/21 Range/Units 15:22 15:22 15:22 WBC 11.81 H (4.8-10.8) K/uL RBC 4.21 (4.2-5.4) M/uL Hgb 11.4 L (12.0-16.0) g/dL Hct 35.1 L (37-47) % MCV 83.4 (80-100) fL MCH 27.1 (25-34) pg MCHC 32.5 (32-36) g/dL RDW Std Deviation 48.1 H (36.4-46.3) fL RDW Coeff of Maria Del Carmen 15.8 H (11.5-14.5) % Plt Count 369 (130-400) K/uL MPV 9.5 (7.4-10.4) fL Immature Gran % (Auto) 0.2 % Neut % (Auto) 63.3 % Lymph % (Auto) 24.5 % [place] % (Auto) 7.1 % Eos % (Auto) 4.6 % Baso % (Auto) 0.3 % Neut # (Auto) 7.48 H (1.4-6.5) K/uL Lymph # (Auto) 2.89 (1.2-3.4) K/uL [place] # (Auto) 0.84 H (0.11-0.59) K/uL Eos # (Auto) 0.54 H (0-0.5) K/uL Baso # (Auto) 0.04 (0-0.2) K/uL Immature Gran # (Auto) 0.02 (0.00-0.02) K/uL ESR 33 H (0-30) mm/hr Sodium 133 L (136-145) mmol/L Potassium 4.2 (3.5-5.1) mmol/L Chloride 97 L (98-107) mmol/L Carbon Dioxide 27 (21-32) mmol/L Anion Gap 9 (3-11) BUN 10 (6-23) mg/dl Creatinine 0.50 L (0.6-1.2) mg/dl Est Cr Clr Drug Dosing 111.7 ml/min Est GFR ( Amer) 124.5 ml/min Est GFR (Non-Af Amer) 107.4 ml/min BUN/Creatinine Ratio 20.0 (10-20) Glucose 316 H* (70-99(Fasting)) mg/dl Calcium 9.3 (8.5-10.1) mg/dl Total Bilirubin 0.5 (0.2-1.0) mg/dl AST 12 L (13-39) U/L ALT 18 (7-52) U/L Alkaline Phosphatase 115 H (34-104) U/L C-Reactive Protein 1.57 H (0-0.5) mg/dl Total Protein 7.0 (6.0-8.3) gm/dl Albumin 4.2 (3.4-5.0) gm/dl Globulin 2.8 (2.5-4.0) gm/dl Albumin/Globulin Ratio 1.5 (0.9-2) Imaging Data Radiologist's Impression: Ankle X-Ray 09/26/21 14:51 XR foot RT min 3V routine, XR ankle RT min 3V routine HISTORY: 56 years-old Female r/o osteomyelitis follow-up study in a patient with history of osteomyelitis and prior surgery COMPARISON: Right foot radiographs 08/09/2021, MRI right foot 09/07/2021 TECHNIQUE: 3 views of the right foot with 3 views of the right ankle FINDINGS: FOOT: Moderate soft tissue swelling of the forefoot with deep tissue air adjacent to the amputation stumps.. There is prior partial resection of the first and second digits at the level of the metatarsal-phalangeal joints. Osseous erosions with bony fragmentation involves the first and second metatarsal heads. There is mild osteoarthritis of the foot and ankle. Small enthesophytes of the calcaneus. No acute fracture or opaque foreign body. ANKLE: Moderate anteromedial soft tissue swelling with suggested medial soft tissue ulcer. No acute fracture, dislocation or osseous erosion. IMPRESSION: 1. Partial partial amputation of the first and second digits at the level of the metatarsal-phalangeal joints. There is evidence of acute osteomyelitis involving the first and second metatarsal heads. 2. Moderate anteromedial soft tissue swelling of the ankle. ACT 112: Negative or not required by law. The above report was generated using voice recognition software. It may contain grammatical, syntax or spelling errors. Electronically signed by: Puneet Howard M.D. 09/26/2021 4:24 PM Foot X-Ray 09/26/21 14:51 XR foot RT min 3V routine, XR ankle RT min 3V routine HISTORY: 56 years-old Female r/o osteomyelitis follow-up study in a patient with history of osteomyelitis and prior surgery COMPARISON: Right foot radiographs 08/09/2021, MRI right foot 09/07/2021 TECHNIQUE: 3 views of the right foot with 3 views of the right ankle FINDINGS: FOOT: Moderate soft tissue swelling of the forefoot with deep tissue air adjacent to the amputation stumps.. There is prior partial resection of the first and second digits at the level of the metatarsal-phalangeal joints. Osseous erosions with bony fragmentation involves the first and second metatarsal heads. There is mild osteoarthritis of the foot and ankle. Small enthesophytes of the calcaneus. No acute fracture or opaque foreign body. ANKLE: Moderate anteromedial soft tissue swelling with suggested medial soft tissue ulcer. No acute fracture, dislocation or osseous erosion. IMPRESSION: 1. Partial partial amputation of the first and second digits at the level of the metatarsal-phalangeal joints. There is evidence of acute osteomyelitis involving the first and second metatarsal heads. 2. Moderate anteromedial soft tissue swelling of the ankle. ACT 112: Negative or not required by law. The above report was generated using voice recognition software. It may contain grammatical, syntax or spelling errors. Electronically signed by: Puneet Howard M.D. 09/26/2021 4:24 PM MDM Narrative 56-year-old female diabetic with worsening pain and increased redness in the area her right foot surgery and right ankle surgery in the setting of a positive culture for MRSA. She is currently on IV daptomycin which was sensitive on September 02, 2021. Despite daily antibiotics through a PICC line, her symptoms are worsening. Vital signs here reveal hypertension. She is afebrile. She is mildly tachycardic with a heart rate of 110. The white blood cell count is mildly elevated. Glucose is elevated. CRP and sed rate are elevated. X-rays are suggestive of ongoing osteomyelitis. The patient will be seen by the hospitalist for further inpatient evaluation and care. I did page Dr. Montaño from orthopedics about the patient, however as he was an operation, I did not speak with him about the patient at the time of hospitalist consultation. Impression & Plan Cellulitis of foot, right, Osteomyelitis, Acute hyperglycemia Discharge Plan Visit Data Chief Complaint: Foot Injury/Pain ED Provider: Karthik Retana Discharge Problem: Cellulitis of foot, right, Osteomyelitis, Acute hyperglycemia Patient Disposition: Being Evaluated by Hospitalist Forms Stand Alone Forms: My [facility] Prescriptions Prescriptions: No Action (DME) lancets [OneTouch UltraSoft Lancets] Misc See Rx Instructions .ROUTE .MEDSUPPLY Qty: 100 RF: 0 lorazepam [Ativan] 1 mg Tablet 1 mg PO TID Qty: 21 RF: 0 albuterol sulfate [Proventil HFA] 90 mcg/actuation HFA aerosol inhaler 1 puff inhalation QID PRN (Reason: Shortness Of Breath) RF: 0 metoprolol succinate [Toprol XL] 50 mg tablet extended release 24 hr 50 mg PO QAM RF: 0 metformin 500 mg tablet 500 mg PO BID Qty: 60 RF: 0 Basaglar KwikPen U-100 Insulin 100 unit/mL (3 mL) insulin pen 15 unit SUBCUT HS Qty: 1 RF: 0 insulin lispro [Humalog KwikPen Insulin] 100 unit/mL insulin pen 3 unit SUBCUT TIDM Qty: 1 RF: 0 daptomycin 500 mg recon soln 300 mg IV DAILY 40 Days Qty: 10 RF: 0 oxycodone 5 mg Tablet 5 - 10 mg PO Q4H MDD 8 PRN (Reason: pain) Qty: 36 RF: 0 cyclobenzaprine 10 mg Tablet 10 mg PO TID RF: 0 aspirin [Aspirin Low Dose] 81 mg Tablet,Delayed Release (Dr/Ec) 81 mg PO QPM RF: 0 ropinirole 2 mg Tablet 4 mg PO HS RF: 0 zolpidem [Ambien] 10 mg Tablet 10 mg PO HS RF: 0 nortriptyline [Pamelor] 50 mg Capsule 100 mg PO HS RF: 0 Referrals Referrals: Ashok Clemons MD [Primary Care Provider] -
[2021-09-26] MEDS: HYDROmorphone INJ 0.5 MG/0.5 ML SYR IV PRN ×3 (15:12→20:57)
[2021-09-26 15:33] LABS: Basophils # (auto) 0.04 K/uL (0-0.2); Basophils % (auto) 0.3 %; Eosinophils # (auto) 0.54 K/uL (0-0.5); Eosinophils % (auto) 4.6 %; Hematocrit (blood only) 35.1 % (37-47); Hemoglobin 11.4 g/dL (12.0-16.0); Immature Granulocytes # (auto) 0.02 K/uL (0.00-0.02); Immature Granulocytes % (auto) 0.2 %; Lymphocytes # (auto) 2.89 K/uL (1.2-3.4); Lymphocytes % (auto) 24.5 %; Mean Corpuscular Hemoglobin 27.1 pg (25-34); Mean Corpuscular Hgb Conc 32.5 g/dL (32-36); Mean Corpuscular Volume 83.4 fL (80-100); Mean Platelet Volume 9.5 fL (7.4-10.4); Monocytes # (auto) 0.84 K/uL (0.11-0.59); Monocytes % (auto) 7.1 %; Neutrophils # (auto) 7.48 K/uL (1.4-6.5); Neutrophils % (auto) 63.3 %; Platelet Count 369 K/uL (130-400); RDW Coefficient of Variation 15.8 % (11.5-14.5); RDW Standard Deviation 48.1 fL (36.4-46.3); Red Blood Count 4.21 M/uL (4.2-5.4); White Blood Count 11.81 K/uL (4.8-10.8)
[2021-09-26 16:02] LABS: Albumin Globulin Ratio 1.5 (0.9-2); Albumin Level 4.2 gm/dl (3.4-5.0); Bilirubin,Total 0.5 mg/dl (0.2-1.0); C Reactive Protein 1.57 mg/dl (0-0.5); Calcium 9.3 mg/dl (8.5-10.1); Creatinine Clr Calc Pharmacy 111.7 ml/min; Est GFR (African American) 124.5 ml/min; Est GFR (Non-African American) 107.4 ml/min; Globulin 2.8 gm/dl (2.5-4.0); Potassium 4.2 mmol/L (3.5-5.1)
--- NOTE | 2021-09-26 16:25 | XRay Report ---
XR foot RT min 3V routine, XR ankle RT min 3V routine HISTORY: 56 years-old Female r/o osteomyelitis follow-up study in a patient with history of osteomye litis and prior surgery COMPARISON: Right foot radiographs 08/09/2021, MRI right foot 09/07/2021 TECHNIQUE: 3 views of the right foot with 3 views of the right ankle FINDINGS: FOOT: Moderate soft tissue swelling of the forefoot with deep tissue air adjacent to the amputation stumps. . There is prior partial resection of the first and second digits at the level of the metatarsal-phal angeal joints. Osseous erosions with bony fragmentation involves the first and second metatarsal head s. There is mild osteoarthritis of the foot and ankle. Small enthesophytes of the calcaneus. No acute fracture or opaque foreign body. ANKLE: Moderate anteromedial soft tissue swelling with suggested medial soft tissue ulcer. No acute fracture , dislocation or osseous erosion. IMPRESSION: 1. Partial partial amputation of the first and second digits at the level of the metatarsal-phalangea l joints. There is evidence of acute osteomyelitis involving the first and second metatarsal heads. 2. Moderate anteromedial soft tissue swelling of the ankle. ACT 112: Negative or not required by law. The above report was generated using voice recognition software. It may contain grammatical, syntax o r spelling errors. Electronically signed by: Puneet Howard M.D. 09/26/2021 4:24 PM
--- NOTE | 2021-09-26 16:42 | History & Physical Report ---
Date of Service September 26, 2021 Assessment & Plan (1) Osteomyelitis: Plan: Osteomyelitis of right foot/ankle Worsening while on daptomycin Patient on nortriptyline SOFTWARE INTERN, Nasalide contraindicated Discussed vancomycin trial with patient. She reports that last time she is on vancomycin she developed bright red flushing of her chest and neck immediately even with a small volume of the medication. Did not have respiratory symptoms, but medication was stopped immediately. Likely to be sensitive to Vanco although this is not a true anaphylactic reaction so could consider vancomycin repeat trial, slow infusion rate at one half normal rate, and interrupt infusion and treat H2/H1 justin if reaction develops We will trial vancomycin at half or quarter rate, Benadryl and famotidine available at bedside If unable to tolerate vancomycin would consult ID, alternatives including clindamycin and doxycycline with poor osteomyelitis outcomes/bacteriostatic leukocytosis to 11.81 Elevated BSG 316 Creatinine 0.5 on admission CRP elevated to 1.57 from prior of 0.64 Covid pending Foot/ankle x-ray: Partial amputation of first and second digits at the level of the metatarsalphalangeal joints. Evidence of acute osteomyelitis involving first and second metatarsal heads. Moderate anterior medial swelling of soft tissue ankle. Prior duplex lower extremity artery 09/03: No hemodynamically significant stenosis. Right NATHAN normal, left NATHAN moderately decreased. 09/02/2021 right great toe positive for staph aureus MRSA, blood cultures at that visit were negative -EKG: nsr, no st changes, QTc 434ms Dr. Montaño consulted. MRI with contrast of the ankle/foot pending Pain control with hydromorphone 0.5-1 mg scaled analgesia every 34 hours as needed (2) Cellulitis of right foot: Plan: As above (3) HTN (hypertension): Plan: Hypertension Lisinopril held pending potential surgical intervention, resume postop or if surgery is not anticipated in the next 24 hours Continue home metoprololpatient is intermittently hypertensive, improves following pain control, hypertension likely 2/2 pain Pain control as above (4) MRSA (methicillin resistant staph aureus) culture positive: Plan: History of positive MRSA, see above (5) Diabetes mellitus type 2, uncontrolled: Plan: Type 2 diabetes mellitus Home Metformin held Continue Lantus 15 units nightly Insulin SSI (6) Nonobstructive atherosclerosis of coronary artery: Plan: CAD Cardiac cath 10/02, LAD 20 to 30% disease, RCA less than 30% stenosis, LCx with mild luminal irregularities Continue metoprolol Patient with no chest pain, cardiac symptoms on admission Admitting EKG NSR, no ST changes, QTC 434 No cardiac symptoms on admission, if patient develops signs or symptoms of sepsis or chest pain would move to telemetry (7) PAD (peripheral artery disease): Plan: PAD Last Dopplers as above, no clinically significant flow limitation Statin previously held while on daptomycin, may consider restarting once washed out (8) Depression: Plan: Depression Patient on nortriptyline and lorazepam SOFTWARE INTERN, continue. Insomnia On home Ambien/lorazepam nightly Plan: DVT prophylaxis: SCDs, rectal prophylaxis held pending surgical evaluation Diet: N.p.o. midnight Disposition: Medical/surgical CODE STATUS: Full code History of Present Illness Primary Care Provider: Ashok Clemons MD Mariana is a 56-year-old female with a past medical history of poorly controlled type 2 diabetes mellitus, peripheral artery disease, atypical chest pain, and osteomyelitis of the right foot with surgical intervention 08/2021 as noted below who presents with worsening pain in her foot and whose x-ray of the right foot and ankle shows acute osteomyelitis of the first and second metatarsal heads with moderate anterior medial soft tissue swelling of the ankle. 09/10/2021: Patient with right medial ankle debridement, first metatarsal head resection, second metatarsal head resection, irrigation and debridement of right great toe, tenosynovectomy of the posterior tibial tendon, flexor digitorum longus tendon, and flexor hallux longus tendon with Dr. Montaño. Dr. Lin was consulted for partial artery disease, repeat ultrasound did not show significant stenosis requiring intervention at that time. Mariana seen the bedside. She reports her foot has rapidly felt worse over the last 3 days. She has had some tingling in the distal aspect of her right foot for couple of days before that. She feels that the pain goes down to her bone and radiates up to her mid calf. She has been taking her daptomycin infusions as prescribed. She endorses that she has had some chills, and some nausea with decreased appetite. Denies chest pain, chest pressure, presyncope, syncope, lightheadedness, dizziness, shortness of breath, cough, constipation, diarrhea. Sensation is intact in her feet, but she notes that her right foot throbs very badly" has a pulse of its own ". She took her medications this morning. DVT prophylaxis: Held pending surgical evaluation, SCDs at this time Medical History: Reviewed Medications: Reviewed Surgical History: Reviewed Allergies: Reviewed Social History: No tobacco use in 9 months, denies alcohol use, history of medical marijuana use with no recent use Code Status: Full code Allergies Allergy/AdvReac Type Severity Reaction Status Date / Time morphine Allergy Severe blisters Verified 09/26/21 15:05 in mouth Sulfa (Sulfonamide Allergy Severe rash/swelli Verified 09/26/21 15:05 Antibiotics) ng vancomycin Allergy Intermediate YULIYA Verified 09/26/21 15:05 SYNDROME Home Medications Medication Instructions Recorded Confirmed Type aspirin 81 mg tablet,delayed 81 mg PO QPM 10/19/20 09/26/21 History release (Aspirin Low Dose) cyclobenzaprine 10 mg tablet 10 mg PO TID 10/19/20 09/26/21 History nortriptyline 50 mg capsule 100 mg PO HS 10/19/20 09/26/21 History (Pamelor) ropinirole 2 mg tablet 4 mg PO HS 10/19/20 09/26/21 History zolpidem 10 mg tablet (Ambien) 10 mg PO HS 10/19/20 09/26/21 History lancets (OneTouch UltraSoft #100 ea 11/12/20 07/14/21 History Lancets) lorazepam 1 mg tablet (Ativan) 1 mg PO TID #21 tab 01/28/21 09/26/21 Rx albuterol sulfate 90 mcg/actuation 1 puff INHALATION QID PRN 03/05/21 09/26/21 History aerosol inhaler (Proventil HFA) metoprolol succinate 50 mg 50 mg PO QAM 03/05/21 09/26/21 History tablet,extended release 24 hr (Toprol XL) insulin glargine 100 unit/mL (3 15 unit SUBCUT HS #1 ml 08/18/21 09/26/21 Rx mL) subcutaneous pen (Basaglar KwikPen U-100 Insulin) insulin lispro 100 unit/mL 3 unit SUBCUT TIDM #1 ml 08/18/21 09/26/21 Rx subcutaneous pen (Humalog KwikPen (U-100) Insulin) metformin 500 mg tablet 500 mg PO BID #60 tab 08/18/21 09/26/21 Rx daptomycin 500 mg intravenous 300 mg IV DAILY 40 Days #10 ea 09/06/21 09/26/21 Rx solution oxycodone 5 mg tablet 5 - 10 mg PO Q4H PRN #36 tab MDD 8 09/12/21 09/26/21 Rx Past Med/Surg History Medical History 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 No issues per anesthesia postop progress note. Cellulitis Chronic back pain Depression Diabetic peripheral neuropathy DM2 (diabetes mellitus, type 2) IDDM, A1c 07/2021-11% Gastritis GIB (gastrointestinal bleeding) History of amputation of great toe Hyperlipidemia Insulin dependent diabetes mellitus Nonobstructive atherosclerosis of coronary artery Numbness of lower extremity Peripheral neuropathy Right second toe ulcer Seizures Surgical History History of cardiac cath done at [facility]; 09/22/19; LM - mild luminal irregularities. LAD - mid 20-30%, distal with myocardial bridge & 30% stenosis. L Cx - mild luminal irregularities. RCA - proximal <30% stenosis; mid/distal vessel mild plaques. PDA - mild luminal irregularities. History of esophagogastroduodenoscopy (EGD) Family History Mother , age 63 Myocardial infarction Father , age 68 or 69 Myocardial infarction Brother S/P CABG (coronary artery bypass graft) Sister Myocardial infarction x 3; she is 57yo Social History Smoking Status: Never smoker Tobacco Type: Cigarettes packs per day: 1; Years Smoked: 20; Cigarettes Per Day: 1 PPD for 20 years; Second Hand Exposure: No; Hx Alcohol Use: No Hx Substance Use: Yes Last Used Substance: Unknown Last Used Substance Other:: couple weeks ago Substance Use Type Other:: Medical Marijuana Preferred Language: [place] Communication Ability: Effective Import Coordinator Required: No Beliefs That Will Affect Care: None marital status: Current Living Situation: Spouse 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 NAD. Cooperative. HEENT: Atraumatic, normocephalic. Pulm: CTAB A&P. -wheezes, -rales, -rhonchi. Symmetrical chest rise. No increase in work of breathing. No respiratory distress. Cardiac: RRR, -mrg. Radial pulses intact and symmetrical. Abdominal: Nontender, nondistended, soft. BS present. No extremities: Right foot with medial malleolus open ulceration and sutures in place, post surgical closure at distal medial foot with sutures in place. Right foot is erythematous at both postsurgical sites with some spreading erythema up to the distal third of the lower extremity. Bounding PT pulses. Sensation intact to soft touch bilaterally. Right foot/ankle strength assessment limited by pain. Left ankle dorsiflexion/plantarflexion intact. Fruit Pitter strength intact and symmetrical. Results & Data Results & Data ([facility]) Vital Signs (Past 12 Hours) Vital Signs Temp Pulse Resp BP Pulse Ox 09/26/21 11:37 36.5 C 110 H 20 176/81 H 97 PG Care Time/CCT Total # of Minutes Spent Total Time Spent with Patient: Total time spent is greater than 50% in coordination of care (as documented) at patient's floor/unit and/or counseling patient: Coding Level of Care Code 00412 Initial Inpt Care Lvl 2 Diagnoses Osteomyelitis M86.9 Cellulitis of right foot L03.115 HTN (hypertension) I10 MRSA (methicillin resistant staph aureus) culture positive Z22.322 Diabetes mellitus type 2, uncontrolled E11.65 Nonobstructive atherosclerosis of coronary artery I25.10 PAD (peripheral artery disease) I73.9 Depression F32.9
[2021-09-26] MEDS ORDERED: HYDROmorphone INJ 0.5 MG/0.5 ML SYR IV PRN (17:58)
[2021-09-26] MEDS ORDERED: VANCOMYCIN HCL 1,250 MG in SODIUM CHLORIDE 0.9% 500 ML IV ONE (17:59)
[2021-09-26] MEDS ORDERED: VANCOMYCIN CONSULT ACTIVE PRN (17:59)
[2021-09-26] MEDS ORDERED: FAMOTIDINE 20 MG in SYRINGE 3 ML IV PRN (18:00)
[2021-09-26] MEDS: HYDROmorphone INJ 1 MG/ML SYRINGE IV PRN ×2 (18:06→21:57)
[2021-09-26] MEDS ORDERED: GADOBUTROL 65ML VIAL IV ONE (23:14)
[2021-09-26] MEDS ORDERED: GLUCOSE 40% GEL 15 GM TUBE PO PRN (23:56)
[2021-09-26] MEDS ORDERED: ACETAMINOPHEN 325 MG TAB PO PRN (23:56)
[2021-09-26] MEDS ORDERED: diphenhydrAMINE 50 MG/ML VIAL IV PRN (23:56)
[2021-09-26] MEDS ORDERED: GLUCAGON FOR INJ 1 MG VIAL SQ PRN (23:56)
[2021-09-26] MEDS ORDERED: GLUCOSE 10 TABS/TUBE PO PRN (23:56)
[2021-09-26] MEDS ORDERED: DEXTROSE 50% 50 ML SYRINGE IV PRN (23:56)
[2021-09-26] MEDS ORDERED: POLYETHYLENE (MIRALAX) 17 GM PACK PO PRN (23:56)
[2021-09-26] MEDS ORDERED: CARBOHYDRATES FOR HYPOGLYCEMIA PO PRN (23:56)
[2021-09-27] MEDS: NORTRIPTYLINE HCL 25 MG CAP PO SCH ×2 (01:38→20:54)
[2021-09-27] MEDS: ZOLPIDEM TARTRATE 10 MG TAB PO PRN ×2 (01:39→20:53)
[2021-09-27] MEDS: rOPINIRole HCL 2 MG TABLET PO SCH ×2 (01:39→20:53)
[2021-09-27] MEDS: CYCLOBENZAPRINE HCL 10 MG TAB PO SCH ×4 (01:39→20:53)
[2021-09-27] MEDS: LORazepam 1 MG TAB PO SCH ×4 (01:40→20:52)
[2021-09-27] MEDS: INSULIN GLARGINE SOLOSTAR 100 UNITS/ML 3 ML PEN SQ SCH ×2 (01:47→20:57)
[2021-09-27] MEDS: INSULIN ASPART PER UNIT SC SCH ×5 (01:49→20:57)
[2021-09-27] MEDS: HYDROmorphone INJ 1 MG/ML SYRINGE IV PRN ×6 (01:54→20:55)
[2021-09-27] MEDS ORDERED: HYDROmorphone INJ 0.5 MG/0.5 ML SYR IV PRN (02:02)
[2021-09-27] MEDS: VANCOMYCIN HCL 1,250 MG in SODIUM CHLORIDE 0.9% 250 ML IV SCH ×2 (06:23→17:43)
[2021-09-27] MEDS ORDERED: ONDANSETRON 4 MG OD TAB ONE (06:29)
[2021-09-27] MEDS ORDERED: HYDROmorphone INJ 1 MG/ML SYRINGE IV PRN (06:37)
[2021-09-27 08:19] LABS: Basophils # (auto) 0.04 K/uL (0-0.2); Basophils % (auto) 0.3 %; Eosinophils # (auto) 0.57 K/uL (0-0.5); Eosinophils % (auto) 4.8 %; Hematocrit (blood only) 35.2 % (37-47); Hemoglobin 11.5 g/dL (12.0-16.0); Immature Granulocytes # (auto) 0.04 K/uL (0.00-0.02); Immature Granulocytes % (auto) 0.3 %; Lymphocytes # (auto) 2.82 K/uL (1.2-3.4); Lymphocytes % (auto) 23.8 %; Mean Corpuscular Hemoglobin 27.1 pg (25-34); Mean Corpuscular Hgb Conc 32.7 g/dL (32-36); Mean Platelet Volume 9.4 fL (7.4-10.4); Monocytes # (auto) 0.88 K/uL (0.11-0.59); Monocytes % (auto) 7.4 %; Neutrophils # (auto) 7.51 K/uL (1.4-6.5); Neutrophils % (auto) 63.4 %; Platelet Count 339 K/uL (130-400); RDW Coefficient of Variation 15.4 % (11.5-14.5); RDW Standard Deviation 46.9 fL (36.4-46.3); Red Blood Count 4.24 M/uL (4.2-5.4); White Blood Count 11.86 K/uL (4.8-10.8)
[2021-09-27] MEDS: METOPROLOL SUCC 50MG EXT REL TAB PO SCH (08:22)
[2021-09-27 08:44] LABS: BUN Creatinine Ratio 25.6 (10-20); Creatinine Clr Calc Pharmacy 145.6 ml/min; Est GFR (African American) 135.1 ml/min; Est GFR (Non-African American) 116.6 ml/min
--- NOTE | 2021-09-27 09:28 | Magnetic Resonance Report ---
MR foot RT wo/w con, MR ankle RT wo/w con CLINICAL HISTORY: Osteomyelitis, MR of foot and ankle w contrast TECHNIQUE: Multiplanar multisequence MR images of the right foot and right ankle were obtained. Comparison: Comparison is made to right foot and ankle radiographs 09/26/2021 FINDINGS: Bones: Patient is status post amputation of the first and second digits. Bony edema is seen in the fi rst, second, and third digit metatarsals. Tendons: Tenosynovitis and soft tissue edema is seen in the tibialis posterior and flexor digitorum l ongus tendons. Soft tissue: Soft tissue swelling is seen most prominent in the medial forefoot. IMPRESSION: Findings a compatible with cellulitis and osteomyelitis in the forefoot affecting the first through t hird metatarsals. Tenosynovitis and possible cellulitis is seen in the posterior compartment of the a nkle. ACT 112: Negative or not required by law. Electronically signed by: Neil Mendieta M.D. 09/27/2021 9:26 AM
--- NOTE | 2021-09-27 11:33 | Orthopedic Consultation ---
Date of Consultation September 27, 2021 Assessment & Plan (1) Osteomyelitis: Repeat wound infection right anteromedial wound with mild dehiscence. MRi showing bony edema in the first second and third digit metatarsals/read as osteomyelitis. Also showing tenosynovitis and soft tissue edema in the tibialis posterior and flexor digitorum longus tendons. X-rays/MRI reviewed. Case will be discussed with Dr. Montaño. Plans for him to review MRI results. Likely need for further irrigation and debridement but to what extent, will be decided by Dr. Montaño Continue IV antibiotics at this time. Continue regular dressing changes to the right foot. History of Present Illness Reason for Consultation: Continued infection right foot Attending Physician: Silvestre Best MD History of Present Illness Patient is a 56-year-old white female known to our practice who has history of osteomyelitis of her first and second toes as well as abscess formation of her anteromedial foot. Patient had gone on to several surgeries in the recent past including great toe amputation second toe amputation, with metatarsal head r esection of the first and second metatarsals, irrigation debridement of abscess of her anteromedial heel several times. Patient was positive for MRSA in August. Patient returns to the hospital with complaints of increased pain in the foot with radiation up the tibia. She states that since starting her IV antibiotics the first 2 weeks at home were improving however she began noticing increased pain at the anterior medial heel wound and also some slightly increased pain on the plantar aspect of the first and second metatarsals. She has been seen several times by nursing care at home. After reviewing her anteromedial heel wound, they attempted to get the patient into see Dr. Montaño however his schedule did not allow it and so the patient came to the emergency room at the insistence of her home care nurse. The patient states that this morning when moving her foot she had a fair amount of drainage from the anteromedial wound. She states that it has been draining a little bit but this was the most drainage she had seen. She was seen in the emergency room and was thusly admitted by the hospitalist service. We have been asked to see her for her current foot situation. Allergies Allergy/AdvReac Type Severity Reaction Status Date / Time morphine Allergy Severe blisters Verified 09/26/21 15:05 in mouth Sulfa (Sulfonamide Allergy Severe rash/swelli Verified 09/26/21 15:05 Antibiotics) ng vancomycin Allergy Intermediate YULIYA Verified 09/26/21 15:05 SYNDROME Home Medications Medication Instructions Recorded Confirmed Type aspirin 81 mg tablet,delayed 81 mg PO QPM 10/19/20 09/26/21 History release (Aspirin Low Dose) cyclobenzaprine 10 mg tablet 10 mg PO TID 10/19/20 09/26/21 History nortriptyline 50 mg capsule 100 mg PO HS 10/19/20 09/26/21 History (Pamelor) ropinirole 2 mg tablet 4 mg PO HS 10/19/20 09/26/21 History zolpidem 10 mg tablet (Ambien) 10 mg PO HS 10/19/20 09/26/21 History lancets (OneTouch UltraSoft #100 ea 11/12/20 07/14/21 History Lancets) lorazepam 1 mg tablet (Ativan) 1 mg PO TID #21 tab 01/28/21 09/26/21 Rx albuterol sulfate 90 mcg/actuation 1 puff INHALATION QID PRN 03/05/21 09/26/21 History aerosol inhaler (Proventil HFA) metoprolol succinate 50 mg 50 mg PO QAM 03/05/21 09/26/21 History tablet,extended release 24 hr (Toprol XL) insulin glargine 100 unit/mL (3 15 unit SUBCUT HS #1 ml 08/18/21 09/26/21 Rx mL) subcutaneous pen (Basaglar KwikPen U-100 Insulin) insulin lispro 100 unit/mL 3 unit SUBCUT TIDM #1 ml 08/18/21 09/26/21 Rx subcutaneous pen (Humalog KwikPen (U-100) Insulin) metformin 500 mg tablet 500 mg PO BID #60 tab 08/18/21 09/26/21 Rx daptomycin 500 mg intravenous 300 mg IV DAILY 40 Days #10 ea 09/06/21 09/26/21 Rx solution oxycodone 5 mg tablet 5 - 10 mg PO Q4H PRN #36 tab MDD 8 09/12/21 09/26/21 Rx Patient History Medical History 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 No issues per anesthesia postop progress note. Cellulitis Chronic back pain Depression Diabetic peripheral neuropathy DM2 (diabetes mellitus, type 2) IDDM, A1c 07/2021-11% Gastritis GIB (gastrointestinal bleeding) History of amputation of great toe Hyperlipidemia Insulin dependent diabetes mellitus Nonobstructive atherosclerosis of coronary artery Numbness of lower extremity Peripheral neuropathy Right second toe ulcer Seizures Surgical History History of cardiac cath done at [facility]; 09/22/19; LM - mild luminal irregularities. LAD - mid 20-30%, distal with myocardial bridge & 30% stenosis. L Cx - mild luminal irregularities. RCA - proximal <30% stenosis; mid/distal vessel mild plaques. PDA - mild luminal irregularities. History of esophagogastroduodenoscopy (EGD) Family History Mother , age 63 Myocardial infarction Father , age 68 or 69 Myocardial infarction Brother S/P CABG (coronary artery bypass graft) Sister Myocardial infarction x 3; she is 57yo Social History Smoking Status: Former smoker Tobacco Type: Cigarettes packs per day: 1; Years Smoked: 20; Cigarettes Per Day: 1 PPD for 20 years; Second Hand Exposure: No; Do You Dip or Chew Tobacco: No; Tobacco Cessation Education Requested by Patient: No Hx Alcohol Use: No Hx Substance Use: Yes Last Used Substance: Unknown Last Used Substance Other:: couple weeks ago Substance Use Type Other:: patient has a medical [employer] card. has not used in at least 2 weeks. 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 No complaints at this time. She is alert and oriented x3. No acute distress. Pleasant cooperative. On examination of her right foot, she is noted to have sutures still in the first and second toe amputation sites. Most of this area is well-healed and there is one small area over the second toe amputation site that has some brown eschar but no drainage. Minimal to no erythema in this area. She has some mild tenderness on palpation. On examination of her anteromedial wound, she appears to have some possible wound dehiscence noted. The gap has opened between the skin edges is approximately a centimeter in width and runs the length of the whole wound. She has some darkened erythema around the edge extending out about 2 to 3 cm circumferentially. She is tender on palpation. She does not have any active drainage at this time. There is no foul odor. She has a strong dorsalis pedis pulse noted. No gross motor or sensory loss seen at this time. Patient is seen with wound care team. We will place Aquacel Ag on the anteromedial wound with an Optifoam dressing. An Optifoam dressing will also be placed over the first and second toe amputation sites to protect it. Results & Data ([facility]) Vital Signs (Past 12 Hours) Vital Signs Temp Pulse Resp BP Pulse Ox 09/27/21 06:56 36.3 C L 99 H 16 183/72 H 98 09/26/21 23:55 36.8 C 100 H 18 168/94 H 97 Diagnostic Findings Laboratory Results WBC 11.86 K/uL (4.8-10.8) H 09/27/21 08:07 RBC 4.24 M/uL (4.2-5.4) 09/27/21 08:07 Hgb 11.5 g/dL (12.0-16.0) L 09/27/21 08:07 Hct 35.2 % (37-47) L 09/27/21 08:07 MCV 83.0 fL (80-100) 09/27/21 08:07 MCH 27.1 pg (25-34) 09/27/21 08:07 MCHC 32.7 g/dL (32-36) 09/27/21 08:07 RDW Std Deviation 46.9 fL (36.4-46.3) H 09/27/21 08:07 RDW Coeff of [place] 15.4 % (11.5-14.5) H 09/27/21 08:07 Plt Count 339 K/uL (130-400) 09/27/21 08:07 MPV 9.4 fL (7.4-10.4) 09/27/21 08:07 Immature Gran % (Auto) 0.3 % 09/27/21 08:07 Neut % (Auto) 63.4 % 09/27/21 08:07 Lymph % (Auto) 23.8 % 09/27/21 08:07 [place] % (Auto) 7.4 % 09/27/21 08:07 Eos % (Auto) 4.8 % 09/27/21 08:07 Baso % (Auto) 0.3 % 09/27/21 08:07 Neut # (Auto) 7.51 K/uL (1.4-6.5) H 09/27/21 08:07 Lymph # (Auto) 2.82 K/uL (1.2-3.4) 09/27/21 08:07 [place] # (Auto) 0.88 K/uL (0.11-0.59) H 09/27/21 08:07 Eos # (Auto) 0.57 K/uL (0-0.5) H 09/27/21 08:07 Baso # (Auto) 0.04 K/uL (0-0.2) 09/27/21 08:07 Immature Gran # (Auto) 0.04 K/uL (0.00-0.02) H 09/27/21 08:07 ESR 33 mm/hr (0-30) H 09/26/21 15:22 Sodium 132 mmol/L (136-145) L 09/27/21 08:07 Potassium 4.0 mmol/L (3.5-5.1) 09/27/21 08:07 Chloride 98 mmol/L (98-107) 09/27/21 08:07 Carbon Dioxide 28 mmol/L (21-32) 09/27/21 08:07 Anion Gap 6 (3-11) 09/27/21 08:07 BUN 10 mg/dl (6-23) 09/27/21 08:07 Creatinine 0.39 mg/dl (0.6-1.2) L 09/27/21 08:07 Est Cr Clr Drug Dosing 145.6 ml/min 09/27/21 08:07 Est GFR ( Amer) 135.1 ml/min 09/27/21 08:07 Est GFR (Non-Af Amer) 116.6 ml/min 09/27/21 08:07 BUN/Creatinine Ratio 25.6 (10-20) H 09/27/21 08:07 Glucose 203 mg/dl (70-99(Fasting)) H 09/27/21 08:07 POC Glucose 236 mg/dl (70-99) H 09/27/21 06:10 Calcium 9.0 mg/dl (8.5-10.1) 09/27/21 08:07 Total Bilirubin 0.5 mg/dl (0.2-1.0) 09/26/21 15:22 AST 12 U/L (13-39) L 09/26/21 15: ALT 18 U/L (7-52) 09/26/21 15: Alkaline Phosphatase 115 U/L (34-104) H 09/26/21 15:22 C-Reactive Protein 1.57 mg/dl (0-0.5) H 09/26/21 15:22 Total Protein 7.0 gm/dl (6.0-8.3) 09/26/21 15:22 Albumin 4.2 gm/dl (3.4-5.0) 09/26/21 15:22 Globulin 2.8 gm/dl (2.5-4.0) 09/26/21 15: Albumin/Globulin Ratio 1.5 (0.9-2) 09/26/21 15:22 Procalcitonin < 0.05 ng/ml (0-0.5) 09/26/21 15:22 SARS-CoV-2, RNA, NAAT NEGATIVE (NEGATIVE) 09/26/21 16:48 Impressions Ankle X-Ray 09/26/21 14:51 XR foot RT min 3V routine, XR ankle RT min 3V routine HISTORY: 56 years-old Female r/o osteomyelitis follow-up study in a patient with history of osteomyelitis and prior surgery COMPARISON: Right foot radiographs 08/09/2021, MRI right foot 09/07/2021 TECHNIQUE: 3 views of the right foot with 3 views of the right ankle FINDINGS: FOOT: Moderate soft tissue swelling of the forefoot with deep tissue air adjacent to the amputation stumps.. There is prior partial resection of the first and second digits at the level of the metatarsal-phalangeal joints. Osseous erosions with bony fragmentation involves the first and second metatarsal heads. There is mild osteoarthritis of the foot and ankle. Small enthesophytes of the calcaneus. No acute fracture or opaque foreign body. ANKLE: Moderate anteromedial soft tissue swelling with suggested medial soft tissue ulcer. No acute fracture, dislocation or osseous erosion. IMPRESSION: 1. Partial partial amputation of the first and second digits at the level of the metatarsal-phalangeal joints. There is evidence of acute osteomyelitis involving the first and second metatarsal heads. 2. Moderate anteromedial soft tissue swelling of the ankle. ACT 112: Negative or not required by law. The above report was generated using voice recognition software. It may contain grammatical, syntax or spelling errors. Electronically signed by: Puneet Howard M.D. 09/26/2021 4:24 PM Foot X-Ray 09/26/21 14:51 XR foot RT min 3V routine, XR ankle RT min 3V routine HISTORY: 56 years-old Female r/o osteomyelitis follow-up study in a patient with history of osteomyelitis and prior surgery COMPARISON: Right foot radiographs 08/09/2021, MRI right foot 09/07/2021 TECHNIQUE: 3 views of the right foot with 3 views of the right ankle FINDINGS: FOOT: Moderate soft tissue swelling of the forefoot with deep tissue air adjacent to the amputation stumps.. There is prior partial resection of the first and second digits at the level of the metatarsal-phalangeal joints. Osseous erosions with bony fragmentation involves the first and second metatarsal heads. There is mild osteoarthritis of the foot and ankle. Small enthesophytes of the calcaneus. No acute fracture or opaque foreign body. ANKLE: Moderate anteromedial soft tissue swelling with suggested medial soft tissue ulcer. No acute fracture, dislocation or osseous erosion. IMPRESSION: 1. Partial partial amputation of the first and second digits at the level of the metatarsal-phalangeal joints. There is evidence of acute osteomyelitis involving the first and second metatarsal heads. 2. Moderate anteromedial soft tissue swelling of the ankle. ACT 112: Negative or not required by law. The above report was generated using voice recognition software. It may contain grammatical, syntax or spelling errors. Electronically signed by: Puneet Howard M.D. 09/26/2021 4:24 PM Ankle MRI 09/26/21 17:58 MR foot RT wo/w con, MR ankle RT wo/w con CLINICAL HISTORY: Osteomyelitis, MR of foot and ankle w contrast TECHNIQUE: Multiplanar multisequence MR images of the right foot and right ankle were obtained. Comparison: Comparison is made to right foot and ankle radiographs 09/26/2021 FINDINGS: Bones: Patient is status post amputation of the first and second digits. Bony edema is seen in the first, second, and third digit metatarsals. Tendons: Tenosynovitis and soft tissue edema is seen in the tibialis posterior and flexor digitorum longus tendons. Soft tissue: Soft tissue swelling is seen most prominent in the medial forefoot. IMPRESSION: Findings a compatible with cellulitis and osteomyelitis in the forefoot affecting the first through third metatarsals. Tenosynovitis and possible cellulitis is seen in the posterior compartment of the ankle. ACT 112: Negative or not required by law. Electronically signed by: Neil Mendieta M.D. 09/27/2021 9:26 AM Foot MRI 09/26/21 17:58 MR foot RT wo/w con, MR ankle RT wo/w con CLINICAL HISTORY: Osteomyelitis, MR of foot and ankle w contrast TECHNIQUE: Multiplanar multisequence MR images of the right foot and right ankle were obtained. Comparison: Comparison is made to right foot and ankle radiographs 09/26/2021 FINDINGS: Bones: Patient is status post amputation of the first and second digits. Bony edema is seen in the first, second, and third digit metatarsals. Tendons: Tenosynovitis and soft tissue edema is seen in the tibialis posterior and flexor digitorum longus tendons. Soft tissue: Soft tissue swelling is seen most prominent in the medial forefoot.
--- NOTE | 2021-09-27 12:25 | Pharmacy Report ---
Pharmacy Vanc AUC Short Note - Date of Service September 27, 2021 - Assessment & Plan Assessment 56 year old F receiving Vancomcyin for treatment of Osteomyelitis of the foot/ankle. Pertinent microbiologic data includes: Cultures of Right ankle and right great toe grew MRSA (09/02/21). Pt condition was worsening on Daptomycin. Physician would like to avoid Linezolid because pt is taking Nortriptyline. Blood cultures are pending. Pt is only able to tolerate Vancomycin infused at a slower rate. Plan Vancomycin * AUC/CELSO is the preferred PK/PD target for vancomycin * AUC guided dosing is effective and associated with decreased risk of nephrotoxicity compared to traditional trough targets * Vancomycin 1250mg IV Q12H is predicted to achieve target AUC/CELSO of 400-600 mg/L.hr and may be associated with an 8% risk of nephrotoxicity * Trough or random level ordered for: 09/28/21 Pharmacy will continue to follow and will adjust dose/frequency as necessary. Thank you.
--- NOTE | 2021-09-27 13:11 | Hospitalist Progress Note ---
Date of Service September 27, 2021 Assessment & Plan (1) Osteomyelitis: Plan: Osteomyelitis of right foot/ankle Worsening while on daptomycin - granted question whether Daptomycin failure vs definitive treatment for osteo is surgical removal -- Patient would like to avoid amputation however may ultimately require more aggressive surgical management? 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 -- Ultimately will likely need ID consultation to help better determine Abx options/durations - Mild leukocytosis remains but afebrile and hemodynamically stable; CRP slightly elevated at 1.57 - Foot/Ankle XR - Partial amputation of the 1st-2nd digits at the level of the metatarsal-phalangeal joints; acute osteomyelitis involving the 1st-2nd metatarsal heads; moderate anteromedial soft tissue swelling of the ankle - Foot/Ankle MRI - Cellulitis and osteomyelitis in the forefoot affecting the 1st - 3rd metatarsals; tenosynovitis and possible cellulitis in the posterior compartment of the ankle Prior duplex lower extremity artery 09/03: No hemodynamically significant stenosis. Right NATHAN normal, left NATHAN moderately decreased - Previous Cx with MRSA -- is at risk for polymicrobial infections given open wound and DM - may need to consider adding Cefepime vs await new surgical cultures - Continue pain control with PRN Dilaudid - has required RUN LEAD in both previous admissions -- Previous settings - RUN LEAD dose 0.25 with lockout at 15 minutes with continuous rate of 0.5 mg/hr - Continue Nortriptyline - Orthopedics consulted - discussed with Corrine - possibly surgical intervention Sunday (2) Cellulitis of right foot: Plan: As above (3) MRSA (methicillin resistant staph aureus) culture positive: Plan: History of positive MRSA, see above (4) HTN (hypertension): Plan: - Elevated - likely component of pain and anxiety response - has ran high on previous admission - Lisinopril on hold pending surgical intervention - Continue Metoprolol 50 mg daily - Could consider PRN Hydralazine (5) Diabetes mellitus type 2, uncontrolled: Plan: - A1c 11.1 Home Metformin held Continue Lantus 15 units nightly with SSI and will monitor and adjust (6) Nonobstructive atherosclerosis of coronary artery: Plan: Cardiac cath 10/02, LAD 20 to 30% disease, RCA less than 30% stenosis, LCx with mild luminal irregularities Patient with no chest pain, cardiac symptoms on admission Admitting EKG NSR, no ST changes, QTC 434 No cardiac symptoms on admission, if patient develops signs or symptoms of sepsis or chest pain would move to telemetry (7) PAD (peripheral artery disease): Plan: Last Dopplers as above, no clinically significant flow limitation Statin previously held while on daptomycin, may consider restarting once washed out (8) Depression: Plan: Patient on nortriptyline 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 Insomnia On home Ambien/lorazepam nightly Plan: Anticipate surgical intervention but unsure of what extent Continue Abx and likely will need ID consultation Monitor pain control Admission and Anticipated Discharge Date Admission Date: September 26, 2021 Subjective No acute events overnight. Biggest complaint today is foot/ankle pain which has been an ongoing challenge with control on multiple admissions. Wound is intermittently draining. She is a bit anxious today and fearful of amputation but exhausted at ongoing admissions/hospital stays. She remains afebrile. States she hasn't had much of an appetite over the past couple days due to pain. Review of Systems Review of Systems: All systems reviewed & are unremarkable except as noted in Subjective Physical Exam Physical Exam: PHYSICAL EXAM General Appearance: WDWN in NAD who is A&O x 3 HEENT: Head is normocephalic/atraumatic; Hearing grossly intact; Mucous membranes moist; Poor dentition Neck: Supple; Trachea midline; Neg JVD Heart: RRR with no M/G/R Lungs: CTA in all lung cardozo bilaterally; Respirations unlabored; Neg accessory muscle use Abdomen: Soft, non-tender, non-distended; Positive BS x 4 quadrants Extremities: Neg cyanosis or edema; R foot with amputation of 1st-2nd toes; R medial malleolus region with open ulceration with sutures in place with purulent drainage Neurological: Speech clear; Gross motor/sensory function intact; Neg focal neurologic deficits Psychiatric: Appropriate mood/affect Skin: Normal Color; Warm/Dry; Neg rashes, ecchymosis, lacerations/ulcerations Results & Data Results & Data ([facility]) Vital Signs (Past 12 Hours) Vital Signs Temp Pulse Resp BP Pulse Ox 09/27/21 06:56 36.3 C L 99 H 16 183/72 H 98 PG Care Time/CCT Total # of Minutes Spent Total Time Spent with Patient: Total time spent is greater than 50% in coordination of care (as documented) at patient's floor/unit and/or counseling patient: Coding Level of Care Code 43674 Subseq Hosp Care Lvl 3 Diagnoses Osteomyelitis M86.9 Cellulitis of right foot L03.115 HTN (hypertension) I10 MRSA (methicillin resistant staph aureus) culture positive Z22.322 Diabetes mellitus type 2, uncontrolled E11.65 Nonobstructive atherosclerosis of coronary artery I25.10 PAD (peripheral artery disease) I73.9 Depression F32.9
[2021-09-27] MEDS ORDERED: Nursing to Pharmacy Communication SCH (13:15)
[2021-09-27] MEDS: ONDANSETRON INJ 2 MG/ML 2 ML VIAL IV PRN (14:32)
[2021-09-27] MEDS ORDERED: HEPARIN 100 UNIT/ML 5ML FLUSH FLUSH PRN (14:51)
[2021-09-28] MEDS: HYDROmorphone INJ 1 MG/ML SYRINGE IV PRN ×4 (03:42→11:57)
[2021-09-28] MEDS ORDERED: VANCOMYCIN TROUGH ONE (05:30)
[2021-09-28] MEDS: VANCOMYCIN HCL 1,250 MG in SODIUM CHLORIDE 0.9% 250 ML IV SCH ×3 (05:49→20:45)
[2021-09-28 06:08] LABS: Est GFR (African American) 130.9 ml/min; Est GFR (Non-African American) 112.9 ml/min
--- NOTE | 2021-09-28 07:55 | Pharmacy Report ---
Pharmacy Vanc AUC Short Note - Date of Service September 28, 2021 - Assessment & Plan Assessment 56 year old F receiving Vancomycin for treatment of Osteomyelitis of right foot/ankle. Cultures of Right ankle and right great toe grew MRSA (09/02/21). Current blood cultures pending. Plan Vancomycin * AUC/CELSO is the preferred PK/PD target for vancomycin * AUC guided dosing is effective and associated with decreased risk of nephrotoxicity compared to traditional trough targets * Trough level is 5.9 mcg/mL on 09/28 * Change to 1250 mg IV every 8 hours. This dose is predicted to achieve target AUC/CELSO of 400-600 mg/L.hr and may be associated with a 10% risk of nephro toxicity * Trough level ordered for: 09/29/21 @1130 Pharmacy will continue to follow and will adjust dose/frequency as necessary. Thank you.
[2021-09-28] MEDS: INSULIN ASPART PER UNIT SC SCH ×4 (08:50→20:55)
[2021-09-28] MEDS: ONDANSETRON INJ 2 MG/ML 2 ML VIAL IV PRN (08:50)
[2021-09-28] MEDS: METOPROLOL SUCC 50MG EXT REL TAB PO SCH (08:51)
[2021-09-28] MEDS: LORazepam 1 MG TAB PO SCH ×3 (08:51→20:45)
[2021-09-28] MEDS: CYCLOBENZAPRINE HCL 10 MG TAB PO SCH ×3 (08:51→20:45)
[2021-09-28] MEDS ORDERED: NALOXONE HCL 0.4 MG/1 ML VIAL/CARP IV PRN (11:56)
--- NOTE | 2021-09-28 12:08 | Hospitalist Progress Note ---
Date of Service September 28, 2021 Assessment & Plan (1) Osteomyelitis: Plan: Osteomyelitis of right foot/ankle Worsening while on daptomycin - granted question whether Daptomycin failure vs definitive treatment for osteo is surgical removal so simply may not be getting good bone absorption -- Patient would like to avoid amputation however may ultimately require more aggressive surgical management? 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 After culture may empirically cover with Cefepime - Mild leukocytosis remains but afebrile and hemodynamically stable; CRP slightly elevated at 1.57 on admission - Foot/Ankle XR - Partial amputation of the 1st-2nd digits at the level of the metatarsal-phalangeal joints; acute osteomyelitis involving the 1st-2nd metatarsal heads; moderate anteromedial soft tissue swelling of the ankle - Foot/Ankle MRI - Cellulitis and osteomyelitis in the forefoot affecting the 1st - 3rd metatarsals; tenosynovitis and possible cellulitis in the posterior compartment of the ankle Prior duplex lower extremity artery 09/03: No hemodynamically significant stenosis. Right NATHAN normal, left NATHAN moderately decreased - Previous Cx with MRSA -- is at risk for polymicrobial infections given open wound and DM - may need to consider adding Cefepime vs await new surgical cultures - Continue pain control - will place on RISK ASSESSMENT ANALYST -- Dose 0.25 with lockout at 20 minutes with continuous rate of 0.5 mg/hr - Continue Nortriptyline - Orthopedics consulted - discussed with Kaushik - possibly surgical intervention Sunday (2) Cellulitis of right foot: Plan: As above (3) MRSA (methicillin resistant staph aureus) culture positive: Plan: History of positive MRSA, see above (4) HTN (hypertension): Plan: - Elevated - likely component of pain and anxiety response - has ran high on previous admission - Lisinopril on hold pending surgical intervention - Continue Metoprolol 50 mg daily - Could consider PRN Hydralazine (5) Diabetes mellitus type 2, uncontrolled: Plan: - A1c 11.1 Home Metformin held Continue Lantus 15 units nightly with SSI and will monitor and adjust (6) Nonobstructive atherosclerosis of coronary artery: Plan: Cardiac cath 10/02, LAD 20 to 30% disease, RCA less than 30% stenosis, LCx with mild luminal irregularities Patient with no chest pain, cardiac symptoms on admission Admitting EKG NSR, no ST changes, QTC 434 No cardiac symptoms on admission, if patient develops signs or symptoms of sepsis or chest pain would move to telemetry (7) PAD (peripheral artery disease): Plan: Last Dopplers as above, no clinically significant flow limitation Statin previously held while on daptomycin, may consider restarting once washed out (8) Depression: Plan: 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 Insomnia On home Ambien/lorazepam nightly Plan: Anticipate surgical intervention but unsure of what extent Continue Abx and likely will need ID consultation Monitor pain control Admission and Anticipated Discharge Date Admission Date: September 26, 2021 Subjective No acute events overnight. Continues to have drainage from the R ankle wound. Pain remains uncontrolled per report. She is tolerating a diet. Verbalizes no new complaints Review of Systems Review of Systems: All systems reviewed & are unremarkable except as noted in Subjective Physical Exam Physical Exam: PHYSICAL EXAM General Appearance: WDWN in NAD who is A&O x 3 HEENT: Head is normocephalic/atraumatic; Hearing grossly intact; Mucous membranes moist; Poor dentition Neck: Supple; Trachea midline; Neg JVD Heart: RRR with no M/G/R Lungs: CTA in all lung cardozo bilaterally; Respirations unlabored; Neg accessory muscle use Abdomen: Soft, non-tender, non-distended; Positive BS x 4 quadrants Extremities: Neg cyanosis or edema; R foot with amputation of 1st-2nd toes; R medial malleolus region with open ulceration with sutures in place with purulent drainage Neurological: Speech clear; Gross motor/sensory function intact; Neg focal neurologic deficits Psychiatric: Appropriate mood/affect Skin: Normal Color; Warm/Dry; Neg rashes, ecchymosis, lacerations/ulcerations Results & Data Results & Data ([facility]) Vital Signs (Past 12 Hours) Vital Signs Temp Pulse Resp BP Pulse Ox 09/28/21 07:30 36.4 C L 95 H 18 105/68 96 PG Care Time/CCT Total # of Minutes Spent Total Time Spent with Patient: Total time spent is greater than 50% in coordination of care (as documented) at patient's floor/unit and/or counseling patient: Coding Level of Care Code 29113 Subseq Hosp Care Lvl 3 Diagnoses Osteomyelitis M86.9 Cellulitis of right foot L03.115 MRSA (methicillin resistant staph aureus) culture positive Z22.322 HTN (hypertension) I10 Diabetes mellitus type 2, uncontrolled E11.65 Nonobstructive atherosclerosis of coronary artery I25.10 PAD (peripheral artery disease) I73.9 Depression F32.9
[2021-09-28] MEDS: SODIUM CHLORIDE 0.9% 1000ML 1,000 ML IV SCH (15:56)
[2021-09-28] MEDS: HYDROmorphone PCA 30 MG/30 ML IV PRN ×2 (15:57→19:13)
[2021-09-28] MEDS: NORTRIPTYLINE HCL 25 MG CAP PO SCH (20:44)
[2021-09-28] MEDS: ZOLPIDEM TARTRATE 10 MG TAB PO PRN (20:45)
[2021-09-28] MEDS: rOPINIRole HCL 2 MG TABLET PO SCH (20:45)
[2021-09-28] MEDS: INSULIN GLARGINE SOLOSTAR 100 UNITS/ML 3 ML PEN SQ SCH (20:52)
[2021-09-29] MEDS: VANCOMYCIN HCL 1,250 MG in SODIUM CHLORIDE 0.9% 250 ML IV SCH ×3 (04:07→19:44)
[2021-09-29] MEDS: ONDANSETRON INJ 2 MG/ML 2 ML VIAL IV PRN (07:49)
[2021-09-29 08:35] LABS: Creatinine Clr Calc Pharmacy 118.3 ml/min; Est GFR (African American) 126.2 ml/min; Est GFR (Non-African American) 108.9 ml/min
[2021-09-29] MEDS: LORazepam 1 MG TAB PO SCH ×3 (09:06→20:00)
[2021-09-29] MEDS: INSULIN ASPART PER UNIT SC SCH ×4 (09:07→21:07)
[2021-09-29] MEDS: CYCLOBENZAPRINE HCL 10 MG TAB PO SCH ×3 (09:07→20:00)
[2021-09-29] MEDS: METOPROLOL SUCC 50MG EXT REL TAB PO SCH (09:09)
--- NOTE | 2021-09-29 10:30 | Hospitalist Progress Note ---
Date of Service September 29, 2021 Assessment & Plan (1) Osteomyelitis: Plan: Osteomyelitis of right foot/ankle Worsening while on daptomycin - granted question whether Daptomycin failure vs definitive treatment for osteo is surgical removal so simply may not be getting good bone absorption -- Patient would like to avoid amputation however may ultimately require more aggressive surgical management? 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 As she is hemodynamically stable will hold on adding additional agent until surgery to prevent issues with culture samples. However if surface would does review additional organisms will add coverage - Mild leukocytosis remains but afebrile and hemodynamically stable; CRP slightly elevated at 1.57 on admission - Foot/Ankle XR - Partial amputation of the 1st-2nd digits at the level of the metatarsal-phalangeal joints; acute osteomyelitis involving the 1st-2nd metatarsal heads; moderate anteromedial soft tissue swelling of the ankle - Foot/Ankle MRI - Cellulitis and osteomyelitis in the forefoot affecting the 1st - 3rd metatarsals; tenosynovitis and possible cellulitis in the posterior compartment of the ankle Prior duplex lower extremity artery 09/03: No hemodynamically significant stenosis. 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 -- Dose 0.25 with lockout at 20 minutes with continuous rate of 0.5 mg/hr - Continue Nortriptyline - Orthopedics consulted - planning surgical intervention Sunday -- Will order preoperative CXR and EKG (2) Cellulitis of right foot: Plan: As above (3) MRSA (methicillin resistant staph aureus) culture positive: Plan: History of positive MRSA, see above (4) HTN (hypertension): Plan: - Improving with better pain control - Lisinopril on hold pending surgical intervention - Continue Metoprolol 50 mg daily - Could consider PRN Hydralazine (5) Diabetes mellitus type 2, uncontrolled: Plan: - A1c 11.1 Home Metformin held Continue Lantus 15 units nightly with SSI and will monitor and adjust (6) Nonobstructive atherosclerosis of coronary artery: Plan: Cardiac cath 10/02, LAD 20 to 30% disease, RCA less than 30% stenosis, LCx with mild luminal irregularities Patient with no chest pain, cardiac symptoms on admission No cardiac symptoms on admission, if patient develops signs or symptoms of sepsis or chest pain would move to telemetry (7) PAD (peripheral artery disease): Plan: Last Dopplers as above, no clinically significant flow limitation Statin previously held while on daptomycin, may consider restarting once washed out (8) Depression: Plan: Patient on 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 Insomnia On home Ambien/lorazepam nightly Plan: Anticipate surgical intervention tomorrow Continue Abx and likely will need ID consultation -- however could consider moving back to [place]apt[place] as it is hard to say if true Abx failure vs generally all Abx have limitations with bone absorption Monitor pain control Admission and Anticipated Discharge Date Admission Date: September 26, 2021 Subjective No acute events overnight. Reports better pain control with INTEGRATED PEST MANAGEMENT TECHNICIAN and tolerating without issue. Does report some increased swelling around the foot/ulcer. Dressing applied to both amputated toe sight and medial ankle. She reports a couple sutures of the amputated toe site migrated out. Surface culture obtained. Remains afebrile. Awaiting surgical intervention tomorrow. She is tolerating a diet without issue. Verbalizes no new complaints Review of Systems Review of Systems: All systems reviewed & are unremarkable except as noted in Subjective Physical Exam Physical Exam: PHYSICAL EXAM General Appearance: WDWN in NAD who is A&O x 3 HEENT: Head is normocephalic/atraumatic; Hearing grossly intact; Mucous membranes moist; Poor dentition Neck: Supple; Trachea midline; Neg JVD Heart: RRR with no M/G/R Lungs: CTA in all lung cardozo bilaterally; Respirations unlabored; Neg accessory muscle use Abdomen: Soft, non-tender, non-distended; Positive BS x 4 quadrants Extremities: Neg cyanosis or edema; R foot with amputation of 1st-2nd toes; R medial malleolus region with open ulceration with sutures in place with purulent drainage Neurological: Speech clear; Gross motor/sensory function intact; Neg focal neurologic deficits Psychiatric: Appropriate mood/affect Skin: Normal Color; Warm/Dry; Neg rashes, ecchymosis, lacerations/ulcerations Results & Data Results & Data ([facility]) Vital Signs (Past 12 Hours) Vital Signs Temp Pulse Resp BP Pulse Ox 09/29/21 07:09 36.7 C 97 H 14 139/84 94 09/29/21 02:27 36.7 C 94 H 20 152/84 H 97 PG Care Time/CCT Total # of Minutes Spent Total Time Spent with Patient: Total time spent is greater than 50% in coordination of care (as documented) at patient's floor/unit and/or counseling patient: Coding Level of Care Code 41950 Subseq Hosp Care Lvl 3 Diagnoses Osteomyelitis M86.9 Cellulitis of right foot L03.115 MRSA (methicillin resistant staph aureus) culture positive Z22.322 HTN (hypertension) I10 Diabetes mellitus type 2, uncontrolled E11.65 Nonobstructive atherosclerosis of coronary artery I25.10 PAD (peripheral artery disease) I73.9 Depression F32.9
[2021-09-29] MEDS ORDERED: VANCOMYCIN TROUGH ONE (11:30)
--- NOTE | 2021-09-29 11:46 | XRay Report ---
XR chest 1V portable CLINICAL HISTORY: Foot pain TECHNIQUE: Single frontal radiograph of the chest was obtained. Comparison: Comparison is made to chest 2 views 08/09/2021 FINDINGS: A left PICC tip is in the mid SVC. The cardiomediastinal silhouette is normal. Lungs are underinflate d but clear. No evidence of pleural effusion or pneumothorax. IMPRESSION: No acute chest disease. ACT 112: Negative or not required by law. Electronically signed by: Neil Mendieta M.D. 09/29/2021 11:44 AM
[2021-09-29] MEDS: SODIUM CHLORIDE 0.9% 1000ML 1,000 ML IV SCH (11:59)
--- NOTE | 2021-09-29 13:20 | Anesthesiology Consultation ---
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 History Surgery Operation Date: 09/30/21 07:00 Proposed Procedures p Irrigation and Debridement Right Foot - Akhil Montaño DO Height/Weight Height: 5 ft 2 in Weight: 69.7 kg Allergies Allergy/AdvReac Type Severity Reaction Status Date / Time morphine Allergy Severe blisters Verified 09/26/21 15:05 in mouth Sulfa (Sulfonamide Allergy Severe rash/swelli Verified 09/26/21 15:05 Antibiotics) ng vancomycin Allergy Intermediate YULIYA Verified 09/26/21 15:05 SYNDROME Medications Home Medications Medication Instructions Recorded Confirmed Last Taken aspirin 81 mg tablet,delayed 81 mg PO QPM 10/19/20 09/26/21 08/31/21 release (Aspirin Low Dose) cyclobenzaprine 10 mg tablet 10 mg PO TID 10/19/20 09/26/21 08/31/21 nortriptyline 50 mg capsule 100 mg PO HS 10/19/20 09/26/21 08/31/21 (Pamelor) ropinirole 2 mg tablet 4 mg PO HS 10/19/20 09/26/21 08/31/21 zolpidem 10 mg tablet (Ambien) 10 mg PO HS 10/19/20 09/26/21 08/31/21 lancets (OneTouch UltraSoft #100 ea 11/12/20 07/14/21 Unknown Lancets) lorazepam 1 mg tablet (Ativan) 1 mg PO TID #21 tab 01/28/21 09/26/21 08/31/21 albuterol sulfate 90 mcg/actuation 1 puff INHALATION QID PRN 03/05/21 09/26/21 09/02/21 08:30 aerosol inhaler (Proventil HFA) metoprolol succinate 50 mg 50 mg PO QAM 03/05/21 09/26/21 08/31/21 09:00 tablet,extended release 24 hr (Toprol XL) insulin glargine 100 unit/mL (3 15 unit SUBCUT HS #1 ml 08/18/21 09/26/21 08/31/21 mL) subcutaneous pen (Basaglar KwikPen U-100 Insulin) insulin lispro 100 unit/mL 3 unit SUBCUT TIDM #1 ml 08/18/21 09/26/21 08/31/21 subcutaneous pen (Humalog KwikPen (U-100) Insulin) metformin 500 mg tablet 500 mg PO BID #60 tab 08/18/21 09/26/21 08/31/21 17:00 daptomycin 500 mg intravenous 300 mg IV DAILY 40 Days #10 ea 09/06/21 09/26/21 Unknown solution oxycodone 5 mg tablet 5 - 10 mg PO Q4H PRN #36 tab MDD 8 09/12/21 09/26/21 Unknown Active Medications Generic Name Dose Route Start Last Admin Trade Name Freq PRN Reason Stop Dose Admin Acetaminophen 650 mg 09/26/21 23:56 09/27/21 04:39 Acetaminophen 325 Mg Tab PO 10/26/21 23:55 650 mg Q4H PRN Administration pain/fever Cyclobenzaprine HCl 10 mg 09/26/21 23:56 09/29/21 12:57 Cyclobenzaprine Hcl 10 Mg Tab PO 10/26/21 23:55 10 mg TID RICKY Administration Heparin Sodium (Porcine) 5 ml 09/27/21 14:51 09/28/21 09:04 Heparin 100 Unit/Ml 5ml Flush FLUSH 10/27/21 14:50 5 ml PRN PRN Administration Flush Hydromorphone HCl 30 mg 09/28/21 11:56 09/28/21 19:13 Hydromorphone Computer Networking Instructor 30 Mg/30 Ml IV 10/12/21 11:55 30 mg PRN PRN Administration INSPECTION MANAGER Pain Titration Protocol Vancomycin HCl 1,250 mg/ 275 mls @ 100 mls/hr 09/28/21 12:00 09/29/21 12:29 Sodium Chloride IV 11/09/21 11:59 100 mls/hr Q8H RICKY Administration Sodium Chloride 1,000 mls @ 15 mls/hr 09/28/21 12:00 09/29/21 11:59 Nss 1000ml IV 10/12/21 11:57 Not Given .Q24H RICKY Insulin Aspart 0 units 09/27/21 16:30 09/29/21 12:58 Insulin Aspart Per Unit SC 10/27/21 16:29 1 units ACHS RICKY Administration Insulin Glargine 15 units 09/26/21 23:56 09/28/21 20:52 Insulin Glargine Solostar 100 Units/Ml 3 Ml Pen SQ 10/26/21 23:55 15 units HS RICKY Administration Lorazepam 1 mg 09/26/21 23:56 09/29/21 12:57 Lorazepam 1 Mg Tab PO 10/26/21 23:55 1 mg TID RICKY Administration Metoprolol Succinate 50 mg 09/27/21 09:00 09/29/21 09:09 Metoprolol Succ 50mg Ext Rel Tab PO 10/27/21 08:59 50 mg QAM RICKY Administration Nortriptyline HCl 100 mg 09/26/21 23:56 09/28/21 20:44 Nortriptyline Hcl 25 Mg Cap PO 10/26/21 23:55 100 mg HS RICKY Administration Ondansetron HCl 4 mg 09/27/21 09:29 09/29/21 07:49 Ondansetron Inj 2 Mg/Ml 2 Ml Vial IV 10/27/21 09:28 4 mg Q6H PRN Administration Nausea And Vomiting Ropinirole HCl 4 mg 09/26/21 23:56 09/28/21 20:45 Ropinirole Hcl 2 Mg Tablet PO 10/26/21 23:55 4 mg HS RICKY Administration Zolpidem Tartrate 10 mg 09/26/21 23:56 09/28/21 20:45 Zolpidem Tartrate 10 Mg Tab PO 10/26/21 23:55 10 mg HS PRN Administration insomnia Past Medical History Medical History 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 No issues per anesthesia postop progress note. Cellulitis Chronic back pain Depression Diabetic peripheral neuropathy DM2 (diabetes mellitus, type 2) IDDM, A1c 07/2021-11% Gastritis GIB (gastrointestinal bleeding) History of amputation of great toe Hyperlipidemia Insulin dependent diabetes mellitus Nonobstructive atherosclerosis of coronary artery Numbness of lower extremity Peripheral neuropathy Right second toe ulcer Seizures Past Family History Family History Mother , age 63 Myocardial infarction Father , age 68 or 69 Myocardial infarction Brother S/P CABG (coronary artery bypass graft) Sister Myocardial infarction x 3; she is 57yo Past Surgical History Surgical History History of cardiac cath done at [facility]; 09/22/19; LM - mild luminal irregularities. LAD - mid 20-30%, distal with myocardial bridge & 30% stenosis. L Cx - mild luminal irregularities. RCA - proximal <30% stenosis; mid/distal vessel mild plaques. PDA - mild luminal irregularities. History of esophagogastroduodenoscopy (EGD) Social History Smoking Status: Former smoker tobacco type: cigarettes Smoking cigarettes per day: 1 PPD for 20 years Do You Dip or Chew Tobacco: No Hx Alcohol Use: No Hx Substance Use: Yes substance use type: marijuana Substance Use Type Other:: patient has a medical [employer] card. has not used in at least 2 weeks. Last Used Substance: Unknown Last Used Substance Other:: couple weeks ago Physical Exam Vital Signs Last Vital Signs Temp 98.4 F 09/29/21 10:49 Pulse 88 09/29/21 10:49 Resp 14 09/29/21 10:49 BP 121/72 09/29/21 10:49 Pulse Ox 94 09/29/21 10:49 Testing Laboratory Results 09/27/21 08:07 09/29/21 07:24 09/28/21 17:50 Gram Stain - Final Ankle,Right Wound Culture - Preliminary Gram negative bacilli Gram negative bacilli#2 09/26/21 15:54 Aerobic Blood Culture - Preliminary Blood No growth in Aerobic bottle after 48 hours. Anaerobic Blood Culture - Preliminary No growth in Anaerobic bottle after 48 hours. 09/26/21 15:22 Aerobic Blood Culture - Preliminary Blood No growth in Aerobic bottle after 48 hours. Anaerobic Blood Culture - Preliminary No growth in Anaerobic bottle after 48 hours. 09/29/21 09/29/21 12:12 08:22 POC Glucose 132 H 169 H Laboratory Tests 09/26/21 16:48 SARS-CoV-2, RNA, NAAT NEGATIVE Electrocardiogram Date: 09/03/21 Normal sinus rhythm, rate 95 bpm Normal ECG When compared with ECG of 02-SEP-2021 11:13, No significant change was found Confirmed by Harvinder Guerra ([id number]) on 09/04/2021 7:25:23 AM Chest X-Ray Date: 09/29/21 Findings: + NAD Echocardiogram Date: 01/24/21 LV is hyperdynamic Mild concentric LVH AV sclerosis mild, without significant AV stenosis Compared to an echocardiogram from 10/2020, no significant change Cervical Spine Date: 01/27/21 IMPRESSION: No fracture or subluxation within the cervical spine.
--- NOTE | 2021-09-29 13:54 | Orthopedic Progress Note ---
Date of Service September 29, 2021 Assessment & Plan (1) Osteomyelitis: Plan: Repeat wound infection right anteromedial wound with mild dehiscence. MRi showing bony edema in the first second and third digit metatarsals/read as osteomyelitis. Also showing tenosynovitis and soft tissue edema in the tibialis posterior and flexor digitorum longus tendons. X-rays/MRI reviewed. Case will be discussed with Dr. Montaño. Plans for him to review MRI results. Likely need for further irrigation and debridement but to what extent, will be decided by Dr. Montaño Continue IV antibiotics at this time. Plan for OR tomorrow. Admission and Anticipated Discharge Date Admission Date: September 26, 2021 Subjective Pt ambulating in room from BR to bed. Feeling anxious about about the upcoming surgery. Pain has not really changed. Continues to have pain at the medial wound site that radiates proximally. No other complaints. Physical Exam Physical Exam: Less crusting on the medial foot wound. Minimal drainage. No odor. Loss of some eschar and wound appears deeper than before. Less erythema. Toe amputation site has not changed much. A few sutures have been removed. No erythema. Having mild pain on the plantar aspect of the 1st/2nd metatarsal head amputation area. Results & Data ([facility]) Vital Signs (Past 12 Hours) Vital Signs Temp Pulse Resp BP Pulse Ox 09/29/21 10:49 36.9 C 88 14 121/72 94 09/29/21 07:09 36.7 C 97 H 14 139/84 94 09/29/21 02:27 36.7 C 94 H 20 152/84 H 97
--- NOTE | 2021-09-29 15:41 | Anesthesiology Consultation ---
Date of Service September 29, 2021 Assessment & Plan Chart Review Chart Review: Acceptable Risk for Surgery and Patient NOT seen in Pre Admission Testing Consults Requested none ASA ASA4 History Surgery Operation Date: 09/30/21 07:00 Proposed Procedures p Irrigation and Debridement Right Foot - Akhil Montaño DO Height/Weight Height: 5 ft 2 in Weight: 69.7 kg Allergies Allergy/AdvReac Type Severity Reaction Status Date / Time morphine Allergy Severe blisters Verified 09/26/21 15:05 in mouth Sulfa (Sulfonamide Allergy Severe rash/swelli Verified 09/26/21 15:05 Antibiotics) ng vancomycin Allergy Intermediate YULIYA Verified 09/26/21 15:05 SYNDROME Medications Home Medications Medication Instructions Recorded Confirmed Last Taken aspirin 81 mg tablet,delayed 81 mg PO QPM 10/19/20 09/26/21 08/31/21 release (Aspirin Low Dose) cyclobenzaprine 10 mg tablet 10 mg PO TID 10/19/20 09/26/21 08/31/21 nortriptyline 50 mg capsule 100 mg PO HS 10/19/20 09/26/21 08/31/21 (Pamelor) ropinirole 2 mg tablet 4 mg PO HS 10/19/20 09/26/21 08/31/21 zolpidem 10 mg tablet (Ambien) 10 mg PO HS 10/19/20 09/26/21 08/31/21 lancets (OneTouch UltraSoft #100 ea 11/12/20 07/14/21 Unknown Lancets) lorazepam 1 mg tablet (Ativan) 1 mg PO TID #21 tab 01/28/21 09/26/21 08/31/21 albuterol sulfate 90 mcg/actuation 1 puff INHALATION QID PRN 03/05/21 09/26/21 09/02/21 08:30 aerosol inhaler (Proventil HFA) metoprolol succinate 50 mg 50 mg PO QAM 03/05/21 09/26/21 08/31/21 09:00 tablet,extended release 24 hr (Toprol XL) insulin glargine 100 unit/mL (3 15 unit SUBCUT HS #1 ml 08/18/21 09/26/21 08/31/21 mL) subcutaneous pen (Lillian Willard U-100 Insulin) insulin lispro 100 unit/mL 3 unit SUBCUT TIDM #1 ml 08/18/21 09/26/21 08/31/21 subcutaneous pen (Humalog KwikPen (U-100) Insulin) metformin 500 mg tablet 500 mg PO BID #60 tab 08/18/21 09/26/21 08/31/21 17:00 daptomycin 500 mg intravenous 300 mg IV DAILY 40 Days #10 ea 09/06/21 09/26/21 Unknown solution oxycodone 5 mg tablet 5 - 10 mg PO Q4H PRN #36 tab MDD 8 09/12/21 09/26/21 Unknown Active Medications Generic Name Dose Route Start Last Admin Trade Name Freq PRN Reason Stop Dose Admin Acetaminophen 650 mg 09/26/21 23:56 09/27/21 04:39 Acetaminophen 325 Mg Tab PO 10/26/21 23:55 650 mg Q4H PRN Administration pain/fever Cyclobenzaprine HCl 10 mg 09/26/21 23:56 09/29/21 12:57 Cyclobenzaprine Hcl 10 Mg Tab PO 10/26/21 23:55 10 mg TID RICKY Administration Heparin Sodium (Porcine) 5 ml 09/27/21 14:51 09/28/21 09:04 Heparin 100 Unit/Ml 5ml Flush FLUSH 10/27/21 14:50 5 ml PRN PRN Administration Flush Hydromorphone HCl 30 mg 09/28/21 11:56 09/28/21 19:13 Hydromorphone Lead Vulcanizing Operator 30 Mg/30 Ml IV 10/12/21 11:55 30 mg PRN PRN Administration CAR LUBRICATOR Pain Titration Protocol Vancomycin HCl 1,250 mg/ 275 mls @ 100 mls/hr 09/28/21 12:00 09/29/21 15:14 Sodium Chloride IV 11/09/21 11:59 Infused Q8H RICKY Infusion Sodium Chloride 1,000 mls @ 15 mls/hr 09/28/21 12:00 09/29/21 11:59 Nss 1000ml IV 10/12/21 11:57 Not Given .Q24H RICKY Insulin Aspart 0 units 09/27/21 16:30 09/29/21 12:58 Insulin Aspart Per Unit SC 10/27/21 16:29 1 units ACHS RICKY Administration Insulin Glargine 15 units 09/26/21 23:56 09/28/21 20:52 Insulin Glargine Solostar 100 Units/Ml 3 Ml Pen SQ 10/26/21 23:55 15 units HS RICKY Administration Lorazepam 1 mg 09/26/21 23:56 09/29/21 12:57 Lorazepam 1 Mg Tab PO 10/26/21 23:55 1 mg TID RICKY Administration Metoprolol Succinate 50 mg 09/27/21 09:00 09/29/21 09:09 Metoprolol Succ 50mg Ext Rel Tab PO 10/27/21 08:59 50 mg QAM RICKY Administration Nortriptyline HCl 100 mg 09/26/21 23:56 09/28/21 20:44 Nortriptyline Hcl 25 Mg Cap PO 10/26/21 23:55 100 mg HS RICKY Administration Ondansetron HCl 4 mg 09/27/21 09:29 09/29/21 07:49 Ondansetron Inj 2 Mg/Ml 2 Ml Vial IV 10/27/21 09:28 4 mg Q6H PRN Administration Nausea And Vomiting Ropinirole HCl 4 mg 09/26/21 23:56 09/28/21 20:45 Ropinirole Hcl 2 Mg Tablet PO 10/26/21 23:55 4 mg HS RICKY Administration Zolpidem Tartrate 10 mg 09/26/21 23:56 09/28/21 20:45 Zolpidem Tartrate 10 Mg Tab PO 10/26/21 23:55 10 mg HS PRN Administration insomnia Past Medical History Medical History 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 No issues per anesthesia postop progress note. Cellulitis Chronic back pain Depression Diabetic peripheral neuropathy DM2 (diabetes mellitus, type 2) IDDM, A1c 07/2021-11% Gastritis GIB (gastrointestinal bleeding) History of amputation of great toe Hyperlipidemia Insulin dependent diabetes mellitus Nonobstructive atherosclerosis of coronary artery Numbness of lower extremity Peripheral neuropathy Right second toe ulcer Seizures Exercise / Class Metabolic Activity III < 4 Walking/Shop/Light housework Past Family History Family History Mother , age 63 Myocardial infarction Father , age 68 or 69 Myocardial infarction Brother S/P CABG (coronary artery bypass graft) Sister Myocardial infarction x 3; she is 57yo Past Surgical History Surgical History History of cardiac cath done at [facility]; 09/22/19; LM - mild luminal irregularities. LAD - mid 20-30%, distal with myocardial bridge & 30% stenosis. L Cx - mild luminal irregularities. RCA - proximal <30% stenosis; mid/distal vessel mild plaques. PDA - mild luminal irregularities. History of esophagogastroduodenoscopy (EGD) Past Anesthesia History No Hx of Anesthesia Complications and No Family Hx of Anesthesia Complications History of PONV No Hx of PONV and No Hx of Motion Sickness Social History Smoking Status: Former smoker tobacco type: cigarettes Smoking cigarettes per day: 1 PPD for 20 years Do You Dip or Chew Tobacco: No Hx Alcohol Use: No Hx Substance Use: Yes substance use type: marijuana Substance Use Type Other:: patient has a medical [employer] card. has not used in at least 2 weeks. Last Used Substance: Unknown Last Used Substance Other:: couple weeks ago Physical Exam Vital Signs Last Vital Signs Temp 36.7 C 09/29/21 14:32 Pulse 78 09/29/21 14:32 Resp 14 09/29/21 14:32 BP 121/74 09/29/21 14:32 Pulse Ox 96 09/29/21 14:32 Testing Laboratory Results 09/27/21 08:07 09/29/21 07:24 09/28/21 17:50 Gram Stain - Final Ankle,Right Wound Culture - Preliminary Gram negative bacilli Gram negative bacilli#2 09/26/21 15:54 Aerobic Blood Culture - Preliminary Blood No growth in Aerobic bottle after 48 hours. Anaerobic Blood Culture - Preliminary No growth in Anaerobic bottle after 48 hours. 09/26/21 15:22 Aerobic Blood Culture - Preliminary Blood No growth in Aerobic bottle after 48 hours. Anaerobic Blood Culture - Preliminary No growth in Anaerobic bottle after 48 hours. 09/29/21 09/29/21 12:12 08:22 POC Glucose 132 H 169 H Electrocardiogram Date: 09/03/21 Findings: + NSR @ (at 95) Chest X-Ray Date: 09/29/21 Findings: + NAD Echocardiogram Date: 01/24/21 EF: >70% LV Function: hyperdynam RWMA: + none Other Findings: + LVH (mod.) Valvular Disease: + no significant valvular disease Cardiac Catheterization Date: 09/22/19 Findings: + RCA (30%), + LMA (LI's), + LCX (LI's) and + pertinent finding (LAD- mid 20-30%;distal 30%)
[2021-09-29] MEDS: HYDROmorphone PCA 30 MG/30 ML IV PRN (18:50)
[2021-09-29] MEDS: NORTRIPTYLINE HCL 25 MG CAP PO SCH (20:00)
[2021-09-29] MEDS: rOPINIRole HCL 2 MG TABLET PO SCH (20:00)
[2021-09-29] MEDS: ZOLPIDEM TARTRATE 10 MG TAB PO PRN (20:03)
[2021-09-29] MEDS: INSULIN GLARGINE SOLOSTAR 100 UNITS/ML 3 ML PEN SQ SCH (21:01)
[2021-09-30] MEDS ORDERED: Nursing to Pharmacy Communication SCH (00:15)
[2021-09-30] MEDS: HYDROmorphone PCA 30 MG/30 ML IV PRN ×3 (04:27→22:04)
[2021-09-30] MEDS: VANCOMYCIN HCL 1,250 MG in SODIUM CHLORIDE 0.9% 250 ML IV SCH ×3 (04:37→20:38)
[2021-09-30] MEDS: INSULIN ASPART PER UNIT SC SCH ×4 (06:09→22:58)
[2021-09-30 06:27] LABS: Hematocrit (blood only) 31.1 % (37-47); Hemoglobin 9.9 g/dL (12.0-16.0); Mean Corpuscular Hemoglobin 26.8 pg (25-34); Mean Corpuscular Hgb Conc 31.8 g/dL (32-36); Mean Corpuscular Volume 84.1 fL (80-100); Mean Platelet Volume 10.1 fL (7.4-10.4); Platelet Count 311 K/uL (130-400); RDW Coefficient of Variation 15.3 % (11.5-14.5); RDW Standard Deviation 47.1 fL (36.4-46.3); White Blood Count 10.04 K/uL (4.8-10.8)
[2021-09-30] MEDS: LORazepam 1 MG TAB PO SCH ×3 (06:39→22:19)
[2021-09-30 06:55] LABS: BUN Creatinine Ratio 28.2 (10-20); Calcium 8.7 mg/dl (8.5-10.1); Creatinine Clr Calc Pharmacy 145.6 ml/min; Est GFR (African American) 135.1 ml/min; Est GFR (Non-African American) 116.6 ml/min
[2021-09-30] MEDS: METOPROLOL SUCC 50MG EXT REL TAB PO SCH (08:16)
[2021-09-30] MEDS: CYCLOBENZAPRINE HCL 10 MG TAB PO SCH ×3 (08:16→22:06)
--- NOTE | 2021-09-30 12:27 | Hospitalist Progress Note ---
Date of Service September 30, 2021 Assessment & Plan (1) Osteomyelitis: Plan: Osteomyelitis of right foot/ankle Worsening while on daptomycin - granted question whether Daptomycin failure vs definitive treatment for osteo is surgical removal so simply may not be getting good bone absorption -- Patient would like to avoid amputation however may ultimately require more aggressive surgical management? 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 -- Ultimately will likely need ID consultation to help better determine Abx options/durations - Obtained surface cultures of wound - growing Enterobacter cloacae and Klebsiella oxytoca -- Patient refused ID consultation however recommendations given to stop Vancomycin and convert to Cefepime x 6 weeks if unable to get source control - Mild leukocytosis remains but afebrile and hemodynamically stable; CRP slightly elevated at 1.57 on admission - Foot/Ankle XR - Partial amputation of the 1st-2nd digits at the level of the metatarsal-phalangeal joints; acute osteomyelitis involving the 1st-2nd metatarsal heads; moderate anteromedial soft tissue swelling of the ankle - Foot/Ankle MRI - Cellulitis and osteomyelitis in the forefoot affecting the 1st - 3rd metatarsals; tenosynovitis and possible cellulitis in the posterior compartment of the ankle Prior duplex lower extremity artery 09/03: No hemodynamically significant stenosis. 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 0.25 with lockout at 20 minutes with continuous rate of 0.5 mg/hr - Continue Nortriptyline - Orthopedics consulted - planning surgical intervention today (2) Cellulitis of right foot: Plan: As above (3) MRSA (methicillin resistant staph aureus) culture positive: Plan: History of positive MRSA, see above (4) HTN (hypertension): Plan: - Improving with better pain control - Lisinopril on hold pending surgical intervention - Continue Metoprolol 50 mg daily - Could consider PRN Hydralazine (5) Diabetes mellitus type 2, uncontrolled: Plan: - A1c 11.1 Home Metformin held Continue Lantus 15 units nightly with SSI and will monitor and adjust (6) Nonobstructive atherosclerosis of coronary artery: Plan: Cardiac cath 10/02, LAD 20 to 30% disease, RCA less than 30% stenosis, LCx with mild luminal irregularities Patient with no chest pain, cardiac symptoms on admission No cardiac symptoms on admission, if patient develops signs or symptoms of sepsis or chest pain would move to telemetry (7) PAD (peripheral artery disease): Plan: Last Dopplers as above, no clinically significant flow limitation Statin previously held while on daptomycin, may consider restarting once washed out (8) Depression: Plan: Patient 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 Insomnia On home Ambien/lorazepam nightly Plan: Anticipate surgical intervention today Admission and Anticipated Discharge Date Admission Date: September 26, 2021 Subjective No acute events overnight. Reports a lot of anxiety about the timing of her surgery. Intermittently states she is going to leave AMA. She refused ID consultation however recommendations given. Review of Systems Review of Systems: All systems reviewed & are unremarkable except as noted in Subjective Physical Exam Physical Exam: PHYSICAL EXAM General Appearance: WDWN in NAD who is A&O x 3 HEENT: Head is normocephalic/atraumatic; Hearing grossly intact; Mucous membranes moist; Poor dentition Neck: Supple; Trachea midline; Neg JVD Heart: RRR with no M/G/R Lungs: CTA in all lung cardozo bilaterally; Respirations unlabored; Neg accessory muscle use Abdomen: Soft, non-tender, non-distended; Positive BS x 4 quadrants Extremities: Neg cyanosis or edema; R foot with amputation of 1st-2nd toes; R medial malleolus region with open ulceration with sutures in place with purulent drainage Neurological: Speech clear; Gross motor/sensory function intact; Neg focal neurologic deficits Psychiatric: Appropriate mood/affect Skin: Normal Color; Warm/Dry; Neg rashes, ecchymosis, lacerations/ulcerations Results & Data Results & Data ([facility]) Vital Signs (Past 12 Hours) Vital Signs Temp Pulse Pulse Resp BP Pulse Ox 09/30/21 11:44 36.8 C 96 H 20 141/73 H 95 09/30/21 07:35 36.7 C 21 167/80 H 95 09/30/21 04:30 36.7 C 92 H 18 152/76 H 95 PG Care Time/CCT Total # of Minutes Spent Total Time Spent with Patient: Total time spent is greater than 50% in coordination of care (as documented) at patient's floor/unit and/or counseling patient: Coding Level of Care Code 92934 Subseq Hosp Care Lvl 3 Diagnoses Osteomyelitis M86.9 Cellulitis of right foot L03.115 MRSA (methicillin resistant staph aureus) culture positive Z22.322 HTN (hypertension) I10 Diabetes mellitus type 2, uncontrolled E11.65 Nonobstructive atherosclerosis of coronary artery I25.10 PAD (peripheral artery disease) I73.9 Depression F32.9
--- NOTE | 2021-09-30 15:22 | Electrocardiogram Report ---
Test Reason : Blood Pressure : / mmHG Vent. Rate : 076 BPM Atrial Rate : 076 BPM P-R Int : 162 ms QRS Dur : 090 ms QT Int : 372 ms P-R-T Axes : 043 063 064 degrees QTc Int : 418 ms Normal sinus rhythm Normal ECG When compared with ECG of 03-SEP-2021 09:24, No significant change was found Confirmed by Aakash Ruff ([id number]) on 09/30/2021 3:22:22 PM Referred By: REFERRED SELF Confirmed By:Aakash Ruff
[2021-09-30] MEDS: ONDANSETRON INJ 2 MG/ML 2 ML VIAL IV PRN (15:59)
[2021-09-30] MEDS ORDERED: ATROPINE SULFATE 0.1 MG/ML 10ML SYR IV PRN (17:47)
[2021-09-30] MEDS ORDERED: PHENYLEPHRINE 100MCG/ML 5ML SYR IV PRN (17:47)
[2021-09-30] MEDS ORDERED: MEPERIDINE HCL 25 MG/ML CARP/VIAL IV PRN (17:47)
[2021-09-30] MEDS ORDERED: LABETALOL HCL IV 5 MG/ML 20ML IV PRN (17:47)
[2021-09-30] MEDS ORDERED: ePHEDrine sulfate 50 MG/ML AMP IV PRN (17:47)
[2021-09-30] MEDS ORDERED: fentaNYL citrate 100 MCG/2 ML VIAL IV PRN (17:47)
[2021-09-30] MEDS ORDERED: ONDANSETRON INJ 2 MG/ML 2 ML VIAL IV PRN (17:47)
--- NOTE | 2021-09-30 17:58 | History & Physical Bridge Note ---
Date of Service September 30, 2021 History & Physical Bridge Note I have examined the patient, reviewed the History & Physical and in the interval since the performance of the History & Physical I have noted the following changes of clinical significance: Will require right foot repeat irrigation debridement medial ankle with tenosynovectomy, repeat irrigation debridement right forefoot.
[2021-09-30] MEDS ORDERED: PROPOFOL IV EMULSION 10 MG/ML 20 ML VIAL IV ONE (18:09)
[2021-09-30] MEDS ORDERED: LIDOCAINE 2% 2 ML VIAL/AMP(20MG/ML) INFIL ONE (18:09)
[2021-09-30] MEDS ORDERED: DEXAMETHASONE SOD INJ 4 MG/ML VIAL ONE (18:09)
[2021-09-30] MEDS ORDERED: ONDANSETRON INJ 2 MG/ML 2 ML VIAL ONE (18:09)
[2021-09-30] MEDS ORDERED: MIDAZOLAM HCL 1 MG/ML 2ML VIAL ONE (18:09)
[2021-09-30] MEDS ORDERED: fentaNYL citrate 100 MCG/2 ML VIAL ONE (18:09)
[2021-09-30] MEDS ORDERED: ceFAZolin 330 MG/ML 1 GM VIAL ONE (18:10)
[2021-09-30] MEDS ORDERED: BUPIVACAINE 0.25% 30 ML VIAL INFIL ONE (19:15)
--- NOTE | 2021-09-30 19:45 | Post Operative Brief Note ---
Immediate Post Op Note v1 Date of Surgery September 30, 2021 Pre & Post Diagnosis Operation Date: 09/30/21 07:00 Pre-Op Diagnosis: Right foot abscess distal forefoot, osteomyelitis Right Foot first and second metatarsals, medial ankle wound dehiscence, tenosynovitis posterior tibial tendon, tenosynovitis flexor digitorum longus tendon. Post-Op Diagnosis: Right foot abscess distal forefoot, osteomyelitis Right Foot first and second metatarsals, medial ankle wound dehiscence, tenosynovitis posterior tibial tendon, tenosynovitis flexor digitorum longus tendon. I identified the patient and participated in the time-out.: Yes Procedure Operation Date: 09/30/21 07:00 Actual Procedures p 1. Right foot incision and drainage distal forefoot abscess 2. Debridement right forefoot skin/subcutaneous tissue/fascia/first and second metatarsal bone 3. Right medial ankle irrigation debridement wound dehiscence 4. Debridement medial ankle skin/subcutaneous tissue/fascia. 5. Tenosynovectomy posterior tibial tendon 6. Tenosynovectomy flexor digitorum longus tendon-(right foot) Akhil Montaño DO Surgeon Akhil Montaño DO Earth Moving Technician None Estimated Blood Loss 5 Findings Consistent with Post-Op Diagnosis Specimens Bone second metatarsal head Aerobic, anaerobic, Gram stain Anesthesia Type MAC Regional Complications none Disposition Accompanied Patient To Recovery: No
--- NOTE | 2021-09-30 20:08 | Anesthesiology Progress Note ---
Date of Service September 30, 2021 Anesthesia Post Procedure Vital Signs Vital Signs: Temp Pulse Pulse Resp BP Pulse Ox 09/30/21 20:05 36.5 C 67 14 106/61 94 09/30/21 19:50 68 14 100/62 97 09/30/21 19:40 69 20 104/61 100 09/30/21 19:30 66 17 84/52 L 100 09/30/21 19:22 36.2 C L 64 20 85/48 L 97 09/30/21 17:17 36.8 C 78 20 129/72 93 09/30/21 16:05 36.7 C 78 16 111/72 93 09/30/21 11:44 36.8 C 96 H 20 141/73 H 95 09/30/21 07:35 36.7 C 21 167/80 H 95 09/30/21 04:30 36.7 C 92 H 18 152/76 H 95 09/29/21 23:36 36.8 C 83 14 109/61 90 09/29/21 20:39 36.6 C 83 16 131/82 95 Pain Intensity Right Foot: Pain Intensity: 1 Transfer of Care Handoff Completed per policy Notes Mental Status: alert / awake / arousable Patient Amnestic to Procedure: Yes Nausea / Vomiting: adequately controlled Pain: adequately controlled Airway Patency, RR, SpO2: stable & adequate BP & HR: stable & adequate Hydration State: stable & adequate Anesthetic Complications: no major complications apparent and Pt Satisfied with anesthetic care
[2021-09-30] MEDS: SODIUM CHLORIDE 0.9% 1000ML 1,000 ML IV SCH (20:24)
[2021-09-30] MEDS: KETOROLAC 30 MG/ML VIAL IV SCH (20:36)
[2021-09-30] MEDS: CEFEPIME 2,000 MG in SYRINGE 0 ML IV SCH (22:05)
--- NOTE | 2021-09-30 22:05 | Operative Report (OR) ---
DATE OF PROCEDURE: 09/30/2021 PREOPERATIVE DIAGNOSES: 1. Right foot abscess, distal forefoot. 2. Osteomyelitis of the first metatarsal head. 3. Osteomyelitis of the second metatarsal head. 4. Medial ankle wound dehiscence. 5. Tenosynovitis of the posterior tibial tendon. 6. Tenosynovitis of the flexor digitorum longus tendon. POSTOPERATIVE DIAGNOSES: 1. Right foot abscess, distal forefoot. 2. Osteomyelitis of the first metatarsal head. 3. Osteomyelitis of the second metatarsal head. 4. Medial ankle wound dehiscence. 5. Tenosynovitis of the posterior tibial tendon. 6. Tenosynovitis of the flexor digitorum longus tendon. PROCEDURES: 1. Right foot incision and drainage of distal forefoot abscess. 2. Debridement of right forefoot including skin and subcutaneous tissue, fascia, first and second me tatarsal head bone. 3. Right medial ankle irrigation and debridement of wound dehiscence. 4. Debridement of medial ankle including skin, subcutaneous tissue and fascia. 5. Tenosynovectomy of the posterior tibial tendon. 6. Tenosynovectomy of the flexor digitorum longus tendon. SURGEON: Akhil Montaño DO. FRIED CAKE MAKER: None. ANESTHESIA: MAC regional. SPECIMENS: Bone, second metatarsal head for pathology and aerobic, anaerobic, Gram stain. DRAINS: None. COMPLICATIONS: None. BLOOD LOSS: 5 mL. PERTINENT HISTORY: This is a 56-year-old woman with a complicated history of multiple soft tissue in fections including bone infections of the right foot. She has had several debridements and several b outs of IV antibiotics. She has shown some incremental improvement; however, continued to have relap ses with a significant foot infection. The patient began having increasing redness, swelling and veronica inage from the medial ankle and then had increasing forefoot pain of the right foot, status post prio r surgery. The patient was placed on IV antibiotics, continued to have worsening of her symptoms. M RI demonstrated tenosynovitis of the flexor digitorum longus and posterior tibial tendons as well as features consistent with osteitis, possible osteomyelitis of the first and second metatarsal heads. The patient was scheduled for surgery as indicated. All potential risks, benefits, complications, rehab potential for incomplete relief of symptoms, need for further surgery, DVT, PE, , persistent pain, swelling, scarring, weakness, neurovascular in jury, wound complications, need for further amputation was discussed with the patient. The patient d ecided to proceed with the procedure as indicated. DESCRIPTION OF PROCEDURE: The patient was taken to the operative suite and placed supine on the oper ating table. After review of consent and identification of proper site, the patient was sedated and monitored. The right lower extremity was then sterilely prepped and draped in the usual fashion, columba vated, and an Esmarch tourniquet was applied at the level of the ankle over sterile surgical towel. There was no exsanguination performed due to the nature of the infection. After surgical timeout was performed, right foot sutures were removed from the distal forefoot and from the medial ankle. First, a 15 blade scalpel was used to make an incision at the site of prior incision in distal forefo ot, opened the skin and subcutaneous tissue and scar. Careful dissection was performed with tenotomy scissors down to the level of the first metatarsal head. There was noted to be a shiny scar coverin g over the distal aspect of the great toe. Next, dissection was then used to proceed down to the dis nitesh aspect of the second metatarsal carefully with tenotomy scissors and forceps. There was noted to be a slight abscess fluid collection in the forefoot. This was evacuated with a rongeur and lavaged . Next, there was noted to be some softening of the second metatarsal head just toward the distal most expanse. This was then resected using a rongeur and then sent for pathological specimen. Abscess fl uid was also sampled for aerobic, anaerobic, Gram stain. Next, further debridement was performed with a 15 blade scalpel, rongeur and curettes of the distal f orefoot including the first and second metatarsal head, local fascia, subcutaneous tissue and skin un til any necrotic features were resected. Next, attention was then directed toward the medial ankle. Sutures that were previously placed were r emoved. There was noted to be slough and immature granulation tissue present. This was carefully de brided down to the level of the posterior tibial tendon and the flexor digitorum longus tendon. There was noted to be local tenosynovitis, which was then resected using a rongeur from both the flexor di gitorum longus tendons and the posterior tibial tendons. Next, debridement was performed around the region of the medial ankle wound dehiscence including skin , subcutaneous tissue and fascia with a rongeur and curette. Once local bleeding tissue was encounte red, pulsatile lavage 6 liters was then used to lavage the medial ankle as well as the forefoot until clear. Once completed, new top gloves and top sheaths were changed and the forefoot incision was th en closed without difficulty with interrupted 2-0 nylon suture. The medial ankle was then reapproximated and closed approximately 75%-80% using interrupted 2-0 nylon sutures. Next, a partial ankle block was performed with 0.25% Marcaine plain, approximately 30 mL a nd then a sterile compressive dressing consisting of Xeroform gauze, sterile 4 x 4's, sterile ABD pad s, cast padding, and an Mikey wrap was applied. The tourniquet was released. The patient was awakened and taken to recovery in stable condition. Job ID: [id number]
[2021-09-30] MEDS: rOPINIRole HCL 2 MG TABLET PO SCH (22:06)
[2021-09-30] MEDS: NORTRIPTYLINE HCL 25 MG CAP PO SCH (22:06)
[2021-09-30] MEDS: INSULIN GLARGINE SOLOSTAR 100 UNITS/ML 3 ML PEN SQ SCH (22:17)
[2021-10-01] MEDS: KETOROLAC 30 MG/ML VIAL IV SCH ×3 (02:16→12:59)
[2021-10-01] MEDS: VANCOMYCIN HCL 1,250 MG in SODIUM CHLORIDE 0.9% 250 ML IV SCH ×3 (03:59→20:56)
[2021-10-01] MEDS: SODIUM CHLORIDE 0.9% 1000ML 1,000 ML IV SCH (04:01)
[2021-10-01] MEDS: CEFEPIME 2,000 MG in SYRINGE 0 ML IV SCH ×3 (05:43→21:00)
[2021-10-01] MEDS: INSULIN ASPART PER UNIT SC SCH ×4 (08:30→20:58)
[2021-10-01] MEDS: METOPROLOL SUCC 50MG EXT REL TAB PO SCH (09:04)
[2021-10-01] MEDS: CYCLOBENZAPRINE HCL 10 MG TAB PO SCH ×3 (09:04→20:56)
[2021-10-01] MEDS: ONDANSETRON INJ 2 MG/ML 2 ML VIAL IV PRN (09:09)
[2021-10-01] MEDS: LORazepam 1 MG TAB PO SCH ×3 (09:11→20:56)
--- NOTE | 2021-10-01 09:25 | Orthopedic Progress Note ---
Date of Service October 01, 2021 Assessment & Plan (1) Cellulitis of foot, right: Plan: POD#1 Right foot incision and drainage distal forefoot abscess; Debridement right forefoot skin/subcutaneous tissue/fascia/first and second metatarsal bone; Right medial ankle irrigation debridement wound dehiscence; Debridement medial ankle skin/subcutaneous tissue/fascia Nonweightbearing right lower extremity. Continue IV antibiotics per primary service. We will plan on dressing change tomorrow. Right ankle cultures from yesterday growing gram negative bacilli. Previous cultures growing Enterobacter cloacae and Klebsiella oxytoca. (2) Osteomyelitis: Admission and Anticipated Discharge Date Admission Date: September 26, 2021 Subjective Postop day 1 repeat I&D. Patient is doing okay this morning she does have complaint of pain however is tolerable. No other current complaints. Denies any chest pain, shortness of breath, dizziness, nausea/vomiting/diarrhea. Review of Systems Review of Systems: All systems reviewed & are unremarkable except as noted in HPI & below Physical Exam Physical Exam: Right foot dressing is clean dry and intact. Distally sensation and neurovascular status intact. Toes are mobile. No calf tenderness. No erythema proximally. Constitutional: WD/WN, vitals as above Results & Data ([facility]) Vital Signs (Past 12 Hours) Vital Signs Temp Pulse Pulse Resp BP Pulse Ox 10/01/21 08:06 36.9 C 92 H 18 153/73 H 91 10/01/21 04:12 37.1 C 90 16 113/63 91 10/01/21 00:09 36.9 C 88 14 114/64 93 09/30/21 23:26 36.9 C 88 14 150/72 H 92 09/30/21 22:33 37.2 C 93 H 18 188/82 H 97
--- NOTE | 2021-10-01 15:53 | Hospitalist Progress Note ---
Date of Service October 01, 2021 Assessment & Plan (1) Osteomyelitis: Plan: Osteomyelitis of right foot/ankle Worsening while on daptomycin - granted question whether Daptomycin failure vs definitive treatment for osteo is surgical removal so simply may not be getting good bone absorption -- Patient would like to avoid amputation however may ultimately require more aggressive surgical management? 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 Minda Hamilton to stop Vancomycin and convert to Cefepime x 6 weeks if unable to get source control. Might be worth reaching out pending surgical culture to get final thoughts vs putting in for another consultation. Will have to see how many weeks of Dapto she has completed (if 6-8 weeks she may no longer need this coverage). May just need the coverage for the gram negative organisms - Mild leukocytosis remains but afebrile and hemodynamically stable; CRP slightly elevated at 1.57 on admission - Foot/Ankle XR - Partial amputation of the 1st-2nd digits at the level of the metatarsal-phalangeal joints; acute osteomyelitis involving the 1st-2nd metatarsal heads; moderate anteromedial soft tissue swelling of the ankle - Foot/Ankle MRI - Cellulitis and osteomyelitis in the forefoot affecting the 1st - 3rd metatarsals; tenosynovitis and possible cellulitis in the posterior compartment of the ankle Prior duplex lower extremity artery 09/03: No hemodynamically significant stenosis. 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 with lockout at 10 minutes with continuous rate of 0.5 mg/hr - Continue Nortriptyline - Orthopedics consulted - S/P I&D of distal forefoot abscess; Debridement; Tenosynovectomy of tibial and flexor digitorum longus tendon (2) Cellulitis of right foot: Plan: As above (3) MRSA (methicillin resistant staph aureus) culture positive: Plan: History of positive MRSA, see above (4) HTN (hypertension): Plan: - Improving with better pain control - Lisinopril on hold pending surgical intervention - Continue Metoprolol 50 mg daily - Could consider PRN Hydralazine (5) Diabetes mellitus type 2, uncontrolled: Plan: - A1c 11.1 Home Metformin held Continue Lantus 15 units nightly with SSI and will monitor and adjust (6) Nonobstructive atherosclerosis of coronary artery: Plan: Cardiac cath 10/02, LAD 20 to 30% disease, RCA less than 30% stenosis, LCx with mild luminal irregularities Patient with no chest pain, cardiac symptoms on admission No cardiac symptoms on admission, if patient develops signs or symptoms of sepsis or chest pain would move to telemetry (7) PAD (peripheral artery disease): Plan: Last Dopplers as above, no clinically significant flow limitation Statin previously held while on daptomycin, may consider restarting once washed out (8) Depression: Plan: 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 Insomnia On home Ambien/lorazepam nightly Plan: Await surgical cultures; Will need Rx for coverage given to case management Admission and Anticipated Discharge Date Admission Date: September 26, 2021 Subjective No acute events overnight. Had surgery late yesterday and reports pain overall is tolerable. She remains afebrile and tolerating a diet. She is due for a dressing change tomorrow. Surgical cultures are pending. Verbalizes no new complaints Review of Systems Review of Systems: All systems reviewed & are unremarkable except as noted in Subjective Physical Exam Physical Exam: PHYSICAL EXAM General Appearance: WDWN in NAD who is A&O x 3 HEENT: Head is normocephalic/atraumatic; Hearing grossly intact; Mucous membranes moist; Poor dentition Neck: Supple; Trachea midline; Neg JVD Heart: RRR with no M/G/R Lungs: CTA in all lung cardozo bilaterally; Respirations unlabored; Neg accessory muscle use Abdomen: Soft, non-tender, non-distended; Positive BS x 4 quadrants Extremities: Neg cyanosis or edema; R foot with dressing/wraps in place a did not remove Neurological: Speech clear; Gross motor/sensory function intact; Neg focal neurologic deficits Psychiatric: Appropriate mood/affect Skin: Normal Color; Warm/Dry Results & Data Results & Data ([facility]) Vital Signs (Past 12 Hours) Vital Signs Temp Pulse Pulse Resp BP Pulse Ox 10/01/21 11:14 36.6 C 89 20 123/92 94 10/01/21 08:06 36.9 C 92 H 18 153/73 H 91 10/01/21 04:12 37.1 C 90 16 113/63 91 PG Care Time/CCT Total # of Minutes Spent Total Time Spent with Patient: Total time spent is greater than 50% in coordination of care (as documented) at patient's floor/unit and/or counseling patient: Coding Level of Care Code 78903 Subseq Hosp Care Lvl 3 Diagnoses Osteomyelitis M86.9 Cellulitis of right foot L03.115 MRSA (methicillin resistant staph aureus) culture positive Z22.322 HTN (hypertension) I10 Diabetes mellitus type 2, uncontrolled E11.65 Nonobstructive atherosclerosis of coronary artery I25.10 PAD (peripheral artery disease) I73.9 Depression F32.9
[2021-10-01] MEDS: ZOLPIDEM TARTRATE 10 MG TAB PO PRN (20:56)
[2021-10-01] MEDS: rOPINIRole HCL 2 MG TABLET PO SCH (20:57)
[2021-10-01] MEDS: NORTRIPTYLINE HCL 25 MG CAP PO SCH (20:57)
[2021-10-01] MEDS: INSULIN GLARGINE SOLOSTAR 100 UNITS/ML 3 ML PEN SQ SCH (21:00)
[2021-10-02] MEDS: HYDROmorphone PCA 30 MG/30 ML IV PRN (00:10)
[2021-10-02] MEDS: VANCOMYCIN HCL 1,250 MG in SODIUM CHLORIDE 0.9% 250 ML IV SCH ×3 (03:59→20:53)
[2021-10-02] MEDS: ONDANSETRON INJ 2 MG/ML 2 ML VIAL IV PRN (04:05)
[2021-10-02] MEDS: CEFEPIME 2,000 MG in SYRINGE 0 ML IV SCH ×3 (05:23→20:53)
[2021-10-02 07:20] LABS: Creatinine Clr Calc Pharmacy 126.2 ml/min; Est GFR (African American) 128.9 ml/min; Est GFR (Non-African American) 111.2 ml/min
[2021-10-02] MEDS: METOPROLOL SUCC 50MG EXT REL TAB PO SCH (08:14)
[2021-10-02] MEDS: CYCLOBENZAPRINE HCL 10 MG TAB PO SCH ×3 (08:15→20:54)
[2021-10-02] MEDS: LORazepam 1 MG TAB PO SCH ×3 (08:17→21:05)
[2021-10-02] MEDS: INSULIN ASPART PER UNIT SC SCH ×4 (09:11→20:55)
--- NOTE | 2021-10-02 10:53 | Hospitalist Progress Note ---
Date of Service October 02, 2021 Assessment & Plan (1) Osteomyelitis: Plan: Osteomyelitis of right foot/ankle Worsening while on daptomycin - granted question whether Daptomycin failure vs definitive treatment for osteo is surgical removal so simply may not be getting good bone absorption -- Patient would like to avoid amputation however may ultimately require more aggressive surgical management? 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 Minda Hamilton to stop Vancomycin and convert to Cefepime x 6 weeks if unable to get source control. Might be worth reaching out Sunday vs putting in for another con sultation.. Able to de-escalate, Rocephin? It appears she was on oral antibiotics on previous admissions. On September 02 she was started on daptomycin. She would have only completed approximately 4 weeks of this treatment. It may be best served to consider continuing daptomycin for an additional 2 weeks to cover the previous MRSA and cover these gram-negative organisms for an additional 6 weeks. - Leukocytosis resolved and afebrile and hemodynamically stable; CRP slightly elevated at 1.57 on admission and will recheck to see if any response (may be skewed given recent surgery - Foot/Ankle XR - Partial amputation of the 1st-2nd digits at the level of the metatarsal-phalangeal joints; acute osteomyelitis involving the 1st-2nd metatarsal heads; moderate anteromedial soft tissue swelling of the ankle - Foot/Ankle MRI - Cellulitis and osteomyelitis in the forefoot affecting the 1st - 3rd metatarsals; tenosynovitis and possible cellulitis in the posterior compartment of the ankle Prior duplex lower extremity artery 09/03: No hemodynamically significant stenosis. 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 -- Dose 0.25 with lockout at 10 minutes with continuous rate of 0.5 mg/hr -- discussed stopping this tomorrow -- She reports she did well with Dilaudid 0.5 mg IV Q2H PRN then rotating with Oxycodone on last admission -- looks like Rx given for Oxycodone 5-10 Q4H - Continue Nortriptyline - Orthopedics consulted - S/P I&D of distal forefoot abscess; Debridement; Tenosynovectomy of tibial and flexor digitorum longus tendon (2) Cellulitis of right foot: Plan: As above (3) MRSA (methicillin resistant staph aureus) culture positive: Plan: History of positive MRSA, see above (4) HTN (hypertension): Plan: - Improving with better pain control - Lisinopril on hold pending surgical intervention - Continue Metoprolol 50 mg daily - Could consider PRN Hydralazine (5) Diabetes mellitus type 2, uncontrolled: Plan: - A1c 11.1 Home Metformin held Continue Lantus 15 units nightly with SSI and will monitor and adjust (6) Nonobstructive atherosclerosis of coronary artery: Plan: Cardiac cath 10/02, LAD 20 to 30% disease, RCA less than 30% stenosis, LCx with mild luminal irregularities Patient with no chest pain, cardiac symptoms on admission No cardiac symptoms on admission, if patient develops signs or symptoms of seps is or chest pain would move to telemetry (7) PAD (peripheral artery disease): Plan: Last Dopplers as above, no clinically significant flow limitation Statin previously held while on daptomycin, may consider restarting once washed out (8) Depression: Plan: 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 Insomnia On home Ambien/lorazepam nightly Plan: Final determination for antibiotic coverage. Obtain pain control. need Rx for coverage given to case management when final determination made Admission and Anticipated Discharge Date Admission Date: September 26, 2021 Subjective No acute events overnight. Patient reports she still has ongoing pain however much controlled compared to admission. She had her surgical dressing changed today. She remains afebrile. She is tolerating a diet without issue. Verbalizes no new complaints. Review of Systems Review of Systems: All systems reviewed & are unremarkable except as noted in Subjective Physical Exam Physical Exam: PHYSICAL EXAM General Appearance: WDWN in NAD who is A&O x 3 HEENT: Head is normocephalic/atraumatic; Hearing grossly intact; Mucous membranes moist; Poor dentition Neck: Supple; Trachea midline; Neg JVD Heart: RRR with no M/G/R Lungs: CTA in all lung cardozo bilaterally; Respirations unlabored; Neg accessory muscle use Abdomen: Soft, non-tender, non-distended; Positive BS x 4 quadrants Extremities: Neg cyanosis or edema; R foot with dressing/wraps in place a did not remove Neurological: Speech clear; Gross motor/sensory function intact; Neg focal neurologic deficits Psychiatric: Appropriate mood/affect Skin: Normal Color; Warm/Dry Results & Data Results & Data ([facility]) Vital Signs (Past 12 Hours) Vital Signs Temp Pulse Resp BP Pulse Ox 10/02/21 08:02 37.0 C 100 H 20 169/86 H 90 PG Care Time/CCT Total # of Minutes Spent Total Time Spent with Patient: Total time spent is greater than 50% in coordination of care (as documented) at patient's floor/unit and/or counseling patient: Coding Level of Care Code 39872 Subseq Hosp Care Lvl 3 Diagnoses Osteomyelitis M86.9 Cellulitis of right foot L03.115 MRSA (methicillin resistant staph aureus) culture positive Z22.322 HTN (hypertension) I10 Diabetes mellitus type 2, uncontrolled E11.65 Nonobstructive atherosclerosis of coronary artery I25.10 PAD (peripheral artery disease) I73.9 Depression F32.9
[2021-10-02] MEDS ORDERED: VANCOMYCIN TROUGH ONE (11:30)
--- NOTE | 2021-10-02 11:47 | Orthopedic Progress Note ---
Date of Service October 02, 2021 Assessment & Plan (1) Cellulitis of foot, right: Plan: POD#2 Right foot incision and drainage distal forefoot abscess; Debridement right forefoot skin/subcutaneous tissue/fascia/first and second metatarsal bone; Right medial ankle irrigation debridement wound dehiscence; Debridement medial ankle skin/subcutaneous tissue/fascia Nonweightbearing right lower extremity. Continue IV antibiotics per primary service. Dressing change today and redressed. Will consult wound care nurse for possible wound VAC placement for her medial ankle incision/wound. Right ankle cultures from OR growing. Enterobacter cloacae. Previous cultures also growing Klebsiella oxytoca. (2) Osteomyelitis: Admission and Anticipated Discharge Date Admission Date: September 26, 2021 Subjective Postop day 2 repeat I&D right foot. Patient is having mild increased pain today. She also has complaint of nausea controlled with medication. Otherwise no other complaints. Denies chest pain, shortness breath, fever/chills, vomiting, dizziness. Review of Systems Review of Systems: All systems reviewed & are unremarkable except as noted in Subjective Physical Exam Physical Exam: Right foot dressing is clean dry and intact. Dressing removed. At her first and second toe amputation site incision is intact, mild bloody drainage. Mild surrounding erythema. No purulence. Her medial ankle wound with some surrounding maceration. Mild surrounding erythema. No purulent drainage. Distally sensation is intact. Neurovascular status intact. No calf tenderness. Constitutional: WD/WN, vitals as above Results & Data ([facility]) Vital Signs (Past 12 Hours) Vital Signs Temp Pulse Resp BP Pulse Ox 10/02/21 11:31 36.7 C 87 20 118/64 94 10/02/21 08:02 37.0 C 100 H 20 169/86 H 90 Laboratory Results Source: Ankle,Right OV Order: Ordered: Aer/Lucero Cult/Sm Comments: Comment 1. Right Medial Ankle Culture Procedure Result Verified Site Gram Stain Final 09/30/21-2020 Gram Stain Result Rare WBCs Seen No Organisms Seen Aero/Lucero Cult Preliminary 10/02/21-1101 Organism 1 Enterobacter cloacae Quantity Moderate Sens Sensitivities to Follow E cloacae RX M.I.C. --- --------- Cefepime S <=2 Ceftriaxone S <=1 Ciprofloxacin S <=0.25 Ertapenem S <=0.5 Gentamicin S <=4 Levofloxacin S <=0.5 Meropenem S <=1 Tobramycin S <=4 Trimeth/Sulfa S <=2/38 Pip/Tazo S <=16 S = SENSITIVE I = INTERMEDIATE R = RESISTANT
[2021-10-02] MEDS: SODIUM CHLORIDE 0.9% 1000ML 1,000 ML IV SCH (13:18)
--- NOTE | 2021-10-02 13:52 | Pharmacy Report ---
Pharmacy Vanc AUC Short Note - Date of Service October 02, 2021 - Assessment & Plan Assessment 56 year old F receiving Vancomycin for treatment of Osteomyelitis of right foot/ankle. Cultures of Right ankle and right great toe grew MRSA (09/02/21). Current blood cultures showing no growth. Wound culture of ankle grew Enterobacter cloacae and Klebsiella oxytoca. Plan Vancomycin * AUC/CELSO is the preferred PK/PD target for vancomycin * AUC guided dosing is effective and associated with decreased risk of nephrotoxicity compared to traditional trough targets * Trough level is 13.4 mcg/mL on 10/02 * Reached out to provider to discuss continuing the Vancomycin in light of the culture results and sensitivity to Cefepime. She is going to reach out to ID for further discussion of completion of 6 week coverage for MRSA from initial toe culture from 09/02. Pharmacy will continue to follow for now. Continue current dose of Vancomycin 1250mg IV Q8H. Pharmacy will continue to follow and will adjust dose/frequency as necessary. Thank you.
[2021-10-02] MEDS: INSULIN GLARGINE SOLOSTAR 100 UNITS/ML 3 ML PEN SQ SCH (20:57)
[2021-10-02] MEDS: rOPINIRole HCL 2 MG TABLET PO SCH (21:04)
[2021-10-02] MEDS: NORTRIPTYLINE HCL 25 MG CAP PO SCH (21:05)
[2021-10-02] MEDS: ZOLPIDEM TARTRATE 10 MG TAB PO PRN (21:06)
[2021-10-03] MEDS: VANCOMYCIN HCL 1,250 MG in SODIUM CHLORIDE 0.9% 250 ML IV SCH ×3 (04:35→20:52)
[2021-10-03] MEDS: CEFEPIME 2,000 MG in SYRINGE 0 ML IV SCH ×3 (05:07→21:37)
[2021-10-03] MEDS: ONDANSETRON INJ 2 MG/ML 2 ML VIAL IV PRN (05:36)
[2021-10-03 07:38] LABS: Hematocrit (blood only) 29.4 % (37-47); Hemoglobin 9.4 g/dL (12.0-16.0); Mean Corpuscular Hemoglobin 27.1 pg (25-34); Mean Corpuscular Volume 84.7 fL (80-100); Mean Platelet Volume 9.4 fL (7.4-10.4); Platelet Count 288 K/uL (130-400); RDW Coefficient of Variation 15.4 % (11.5-14.5); RDW Standard Deviation 47.7 fL (36.4-46.3); Red Blood Count 3.47 M/uL (4.2-5.4); White Blood Count 6.41 K/uL (4.8-10.8)
[2021-10-03 07:56] LABS: C Reactive Protein 4.53 mg/dl (0-0.5); Est GFR (African American) 130.9 ml/min; Est GFR (Non-African American) 112.9 ml/min
[2021-10-03] MEDS: CYCLOBENZAPRINE HCL 10 MG TAB PO SCH ×3 (07:59→21:04)
[2021-10-03] MEDS: METOPROLOL SUCC 50MG EXT REL TAB PO SCH (07:59)
[2021-10-03] MEDS: LORazepam 1 MG TAB PO SCH ×3 (08:02→21:04)
[2021-10-03] MEDS ORDERED: hydrALAZINE HCL 20 MG/ML VIAL IV STA (08:31)
[2021-10-03] MEDS ORDERED: hydrALAZINE HCL 20 MG/ML VIAL IV PRN (08:31)
--- NOTE | 2021-10-03 08:41 | Hospitalist Progress Note ---
Date of Service October 03, 2021 Assessment & Plan (1) Osteomyelitis: Plan: Osteomyelitis of right foot/ankle Worsening while on daptomycin - granted question whether Daptomycin failure vs definitive treatment for osteo is surgical removal so simply may not be getting good bone absorption -- Patient would like to avoid amputation however may ultimately require more aggressive surgical management? -- Patient also noted to remove her dressing on multiple occasions when in room with past provider, not noted during my encounter 10/03. ? 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 Right NATHAN normal, left NATHAN moderately decreased Orthopedics consulted POD #3 S/P I&D of distal forefoot abscess; Debridement; Tenosynovectomy of tibial and flexor digitorum longus tendon with Dr Montaño on 09/30 Leukocytosis resolved. Afebrile. CRP 1.57--> 4.5 and will repeat in AM to ensure trending down (may be skewed given recent surgery) and will need weekly monitoring on abx. Obtained surface cultures of wound - growing Enterobacter cloacae and Klebsiella oxytoca; surgical culture with Enterobacter cloacae * Patient refused ID consultation however recommendations given by Dr. Minda Hamilton to stop Vancomycin and convert to Cefepime x 6 weeks if unable to get source control. Might be worth reaching out Sunday vs putting in for another consultation.. Able to de-escalate, Rocephin? It appears she was on oral antibiotics on previous admissions. On September 02 she was started on daptomycin. She would have only completed approximately 4 weeks of this treatment. It may be best served to consider continuing daptomycin for an additional 2 weeks to cover the previous MRSA and cover these gram-negative organisms for an additional [address] Birmingham and can base abx therapy on current cx and just continue cefepime x 6 weeks, but will continue Vanco x 2 weeks to ensure coverage given prior cx MRSA. Advised AGAINST switching/de-escalating to rocephin given increased resistance with enterobacter species Pain control with dilaudid BRICKMASON HELPER -- ran out this morning, asked RN to call pharmacy to refill --> She took oxycodone 5-10 mg Q4-6 hours last time and this has been ordered. Encouraged patient to utilize PO options overnight in hopes oral pain controlled by tomorrow as she is hopeful for d/c tomorrow. Continue nortyptyline Rx for Cefepime/Vanco and weekly labs to CM provided Cramping --> Mag checked (prior low values ) and low at 1.6 -- ordered 2gm IV and will monitor on AM labs Continued monitoring overnight -- if able to control pain with PO will anticipate possible d/c with outpatient f/u ortho and wound. Already has home health arranged (they are who sent her in) (2) Cellulitis of right foot: Plan: As above, improving (3) MRSA (methicillin resistant staph aureus) culture positive: Plan: History of positive MRSA, see above -- will continue vanco x 2 weeks to complete the 6 weeks given prior cx however per ID could cut this short (4) HTN (hypertension): Plan: Improving with better pain control, currently 146/76 - Lisinopril on hold pending surgical intervention -- > resumed for AM 10/04 - Continue Metoprolol 50 mg daily - Could consider PRN Hydralazine (5) Diabetes mellitus type 2, uncontrolled: Plan: - A1c 11.1 Home Metformin held Continue Lantus 15 units nightly with SSI and will monitor and adjust BSGs acceptable (6) Nonobstructive atherosclerosis of coronary artery: Plan: Cardiac cath 09/2019 --> LAD 20 to 30% disease, RCA less than 30% stenosis, LCx with mild luminal irregularities Patient with no chest pain, cardiac symptoms on admission No cardiac symptoms on admission, if patient develops signs or symptoms of sepsis or chest pain would move to telemetry (7) PAD (peripheral artery disease): Plan: Last Dopplers as above, no clinically significant flow limitation Statin previously held while on daptomycin, may consider restarting once washed out --> resume at d/c recommended as not going to be on daptomycin weekly labs while on abx as above (8) Depression: Plan: Patient on nortriptyline and lorazepam [employer]AD[employer], continue. Insomnia On home Ambien/lorazepam nightly (9) Hypomagnesemia: Plan: checked given cramping/prior lows --> low at 1.6 2gm IV ordered mag level in AM Plan: Pain control -- added PO option and encouraged less on the BRICKMASON HELPER pump Rx to CM for abx provided Possible d/c tomorrow if possible as patient anxious for discharge Admission and Anticipated Discharge Date Admission Date: September 26, 2021 Subjective patient evaluated this morning BRICKMASON HELPER ran out -- confirmed in room. having significant amount of pain and argument with nursing staff/rude attitudes this morning and anxious for d/c home as soona s possible and inquiring what steps needed Discussed low mag and replacement, conversion of pain control to PO -- she notes she had Percocet 5-10mg every 4-6 hours last time and this was effective. Will order and instructed to use BRICKMASON HELPER as needed for beginning part of today and attempt to utilize PO medications after dinner to help with pain control. If pain controlled on PO medications will plan for IV abx/home health at d/c possibly tomorrow. Wound RN seen and changed dressing this morning. No fever, chills, chest pain, shortness of breath. Questions/concerns addressed at this time. Review of Systems Review of Systems: All systems reviewed & are unremarkable except as noted in HPI & below Physical Exam Physical Exam: General Appearance: WD/WN female sitting up in bed, visibly upset and asked "are you hear to argue with me too?" but no acute distress HEENT: normocephalic, atraumatic, hearing intact grossly, mmm, poor dentition noted Trachea midline, without deviation Resp: CTAB, no w/c/r, on room air CV: RRR, no m/r/g, no edema/calf tenderness MSK/Neuro:R foot with dressing in place (not removed), NVI Psych: alert, oriented, cooperative, upset about prior events with previous staff but cooperative and pleasant during encounter Results & Data Results & Data ([facility]) Vital Signs (Past 12 Hours) Vital Signs Temp Pulse Resp BP Pulse Ox 10/03/21 07:40 36.6 C 96 H 18 203/98 H 97 10/02/21 23:09 36.6 C 81 16 121/72 91 Laboratory Results 10/03/21 10/03/21 10/03/21 Range/Units 08:19 07:15 07:15 WBC 6.41 (4.8-10.8) K/uL RBC 3.47 L (4.2-5.4) M/uL Hgb 9.4 L (12.0-16.0) g/dL Hct 29.4 L (37-47) % MCV 84.7 (80-100) fL MCH 27.1 (25-34) pg MCHC 32.0 (32-36) g/dL RDW Std Deviation 47.7 H (36.4-46.3) fL RDW Coeff of Maria Del Carmen 15.4 H (11.5-14.5) % Plt Count 288 (130-400) K/uL MPV 9.4 (7.4-10.4) fL Creatinine 0.43 L (0.6-1.2) mg/dl Est Cr Clr Drug Dosing 132.0 ml/min Est GFR ( Amer) 130.9 ml/min Est GFR (Non-Af Amer) 112.9 ml/min POC Glucose 86 (70-99) mg/dl C-Reactive Protein 4.53 H (0-0.5) mg/dl Vancomycin Trough (10-20) mcg/ml 10/02/21 10/02/21 10/02/21 Range/Units 20:52 17:19 12:05 WBC (4.8-10.8) K/uL RBC (4.2-5.4) M/uL Hgb (12.0-16.0) g/dL Hct (37-47) % MCV (80-100) fL MCH (25-34) pg MCHC (32-36) g/dL RDW Std Deviation (36.4-46.3) fL RDW Coeff of Maria Del Carmen (11.5-14.5) % Plt Count (130-400) K/uL MPV (7.4-10.4) fL Creatinine (0.6-1.2) mg/dl Est Cr Clr Drug Dosing ml/min Est GFR ( Amer) ml/min Est GFR (Non-Af Amer) ml/min POC Glucose 130 H 133 H 173 H (70-99) mg/dl C-Reactive Protein (0-0.5) mg/dl Vancomycin Trough (10-20) mcg/ml 10/02/21 Range/Units 11:42 WBC (4.8-10.8) K/uL RBC (4.2-5.4) M/uL Hgb (12.0-16.0) g/dL Hct (37-47) % MCV (80-100) fL MCH (25-34) pg MCHC (32-36) g/dL RDW Std Deviation (36.4-46.3) fL RDW Coeff of Maria Del Carmen (11.5-14.5) % Plt Count (130-400) K/uL MPV (7.4-10.4) fL Creatinine (0.6-1.2) mg/dl Est Cr Clr Drug Dosing ml/min Est GFR ( Amer) ml/min Est GFR (Non-Af Amer) ml/min POC Glucose (70-99) mg/dl C-Reactive Protein (0-0.5) mg/dl Vancomycin Trough 13.4 (10-20) mcg/ml PG Care Time/CCT Total # of Minutes Spent Total Time Spent with Patient: Total time spent is greater than 50% in coordination of care (as documented) at patient's floor/unit and/or counseling patient: Coding Level of Care Code 27546 Subseq Hosp Care Lvl 3 Diagnoses Osteomyelitis M86.9 Cellulitis of right foot L03.115 MRSA (methicillin resistant staph aureus) culture positive Z22.322 HTN (hypertension) I10 Diabetes mellitus type 2, uncontrolled E11.65 Nonobstructive atherosclerosis of coronary artery I25.10 PAD (peripheral artery disease) I73.9 Depression F32.9 Hypomagnesemia E83.42
[2021-10-03 09:48] LABS: BUN Creatinine Ratio 14.3 (10-20); Calcium 8.5 mg/dl (8.5-10.1); Creatinine Clr Calc Pharmacy 135.2 ml/min; Est GFR (African American) 131.9 ml/min; Est GFR (Non-African American) 113.8 ml/min; Magnesium 1.6 mg/dl (1.7-2.4); Potassium 3.9 mmol/L (3.5-5.1)
[2021-10-03] MEDS: INSULIN ASPART PER UNIT SC SCH ×4 (09:57→21:08)
[2021-10-03] MEDS ORDERED: oxyCODONE/ACETAMINOPHEN 5mg/325mg TAB PO PRN (10:40)
[2021-10-03] MEDS: HYDROmorphone PCA 30 MG/30 ML IV PRN (10:47)
[2021-10-03] MEDS: MAGNESIUM SULFATE / D5W 1 GM/100 ML BAG IV SCH ×2 (11:20→15:10)
[2021-10-03] MEDS: SODIUM CHLORIDE 0.9% 1000ML 1,000 ML IV SCH (15:10)
[2021-10-03] MEDS ORDERED: ALTEPLASE, RECOMBINANT 1 MG/ML 2ML VIAL INSTIL ONE (15:13)
[2021-10-03] MEDS: ZOLPIDEM TARTRATE 10 MG TAB PO PRN (21:04)
[2021-10-03] MEDS: NORTRIPTYLINE HCL 25 MG CAP PO SCH (21:05)
[2021-10-03] MEDS: rOPINIRole HCL 2 MG TABLET PO SCH (21:05)
[2021-10-03] MEDS: INSULIN GLARGINE SOLOSTAR 100 UNITS/ML 3 ML PEN SQ SCH (21:09)
[2021-10-04] MEDS: ONDANSETRON INJ 2 MG/ML 2 ML VIAL IV PRN (03:23)
[2021-10-04] MEDS: VANCOMYCIN HCL 1,250 MG in SODIUM CHLORIDE 0.9% 250 ML IV SCH (04:55)
[2021-10-04] MEDS: CEFEPIME 2,000 MG in SYRINGE 0 ML IV SCH ×2 (04:56→11:02)
[2021-10-04] MEDS: oxyCODONE/ACETAMINOPHEN 5mg/325mg TAB PO PRN ×2 (06:53→10:50)
[2021-10-04] MEDS: CYCLOBENZAPRINE HCL 10 MG TAB PO SCH (08:12)
[2021-10-04] MEDS: METOPROLOL SUCC 50MG EXT REL TAB PO SCH (08:12)
[2021-10-04 08:16] LABS: Basophils # (auto) 0.03 K/uL (0-0.2); Basophils % (auto) 0.3 %; Eosinophils # (auto) 0.39 K/uL (0-0.5); Eosinophils % (auto) 3.7 %; Hematocrit (blood only) 29.8 % (37-47); Hemoglobin 9.5 g/dL (12.0-16.0); Immature Granulocytes # (auto) 0.01 K/uL (0.00-0.02); Immature Granulocytes % (auto) 0.1 %; Lymphocytes # (auto) 2.53 K/uL (1.2-3.4); Lymphocytes % (auto) 23.9 %; Mean Corpuscular Hemoglobin 26.9 pg (25-34); Mean Corpuscular Hgb Conc 31.9 g/dL (32-36); Mean Corpuscular Volume 84.4 fL (80-100); Mean Platelet Volume 9.5 fL (7.4-10.4); Monocytes % (auto) 13.2 %; Neutrophils # (auto) 6.21 K/uL (1.4-6.5); Neutrophils % (auto) 58.8 %; Platelet Count 356 K/uL (130-400); RDW Coefficient of Variation 15.4 % (11.5-14.5); RDW Standard Deviation 47.5 fL (36.4-46.3); Red Blood Count 3.53 M/uL (4.2-5.4); White Blood Count 10.57 K/uL (4.8-10.8)
[2021-10-04 08:33] LABS: BUN Creatinine Ratio 16.7 (10-20); C Reactive Protein 3.34 mg/dl (0-0.5); Calcium 8.8 mg/dl (8.5-10.1); Creatinine Clr Calc Pharmacy 135.2 ml/min; Est GFR (African American) 131.9 ml/min; Est GFR (Non-African American) 113.8 ml/min; Magnesium 1.8 mg/dl (1.7-2.4); Potassium 4.1 mmol/L (3.5-5.1)
--- NOTE | 2021-10-04 08:39 | Hospitalist Progress Note ---
Date of Service October 04, 2021 Assessment & Plan (1) Osteomyelitis: Plan: Osteomyelitis of right foot/ankle Worsening while on daptomycin - granted question whether Daptomycin failure vs definitive treatment for osteo is surgical removal so simply may not be getting good bone absorption -- Patient would like to avoid amputation however may ultimately require more aggressive surgical management? -- Patient also noted to remove her dressing on multiple occasions when in room with past provider, not noted during my encounter 10/03. ? 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 Right NATHAN normal, left NATHAN moderately decreased Orthopedics consulted POD #3 S/P I&D of distal forefoot abscess; Debridement; Tenosynovectomy of tibial and flexor digitorum longus tendon with Dr Montaño on 09/30 Leukocytosis resolved. Afebrile. CRP 1.57--> 4.5 and will repeat in AM to ensure trending down (may be skewed given recent surgery) and will need weekly monitoring on abx. Obtained surface cultures of wound - growing Enterobacter cloacae and Klebsiella oxytoca; surgical culture with Enterobacter cloacae * Patient refused ID consultation however recommendations given by Dr. Minda Hamilton to stop Vancomycin and convert to Cefepime x 6 weeks if unable to get source control. Might be worth reaching out Sunday vs putting in for another consultation.. Able to de-escalate, Rocephin? It appears she was on oral antibiotics on previous admissions. On September 02 she was started on daptomycin. She would have only completed approximately 4 weeks of this treatment. It may be best served to consider continuing daptomycin for an additional 2 weeks to cover the previous MRSA and cover these gram-negative organisms for an additional [address] Birmingham and can base abx therapy on current cx and just continue cefepime x 6 weeks, but will continue Vanco x 2 weeks to ensure coverage given prior cx MRSA. Advised AGAINST switching/de-escalating to rocephin given increased resistance with enterobacter species Pain control with dilaudid PATROL CONDUCTOR -- ran out this morning, asked RN to call pharmacy to refill --> She took oxycodone 5-10 mg Q4-6 hours last time and this has been ordered. Encouraged patient to utilize PO options overnight in hopes oral pain controlled by tomorrow as she is hopeful for d/c tomorrow. Continue nortyptyline Rx for Cefepime/Vanco and weekly labs to CM provided Cramping --> Mag checked (prior low values ) and low at 1.6 -- ordered 2gm IV and will monitor on AM labs Continued monitoring overnight -- if able to control pain with PO will anticipate possible d/c with outpatient f/u ortho and wound. Already has home health arranged (they are who sent her in) (2) Cellulitis of right foot: Plan: As above, improving (3) MRSA (methicillin resistant staph aureus) culture positive: Plan: History of positive MRSA, see above -- will continue vanco x 2 weeks to complete the 6 weeks given prior cx however per ID could cut this short (4) HTN (hypertension): Plan: Improving with better pain control, currently 146/76 - Lisinopril on hold pending surgical intervention -- > resumed for AM 10/04 - Continue Metoprolol 50 mg daily - Could consider PRN Hydralazine (5) Diabetes mellitus type 2, uncontrolled: Plan: - A1c 11.1 Home Metformin held Continue Lantus 15 units nightly with SSI and will monitor and adjust BSGs acceptable (6) Nonobstructive atherosclerosis of coronary artery: Plan: Cardiac cath 09/2019 --> LAD 20 to 30% disease, RCA less than 30% stenosis, LCx with mild luminal irregularities Patient with no chest pain, cardiac symptoms on admission No cardiac symptoms on admission, if patient develops signs or symptoms of sepsis or chest pain would move to telemetry (7) PAD (peripheral artery disease): Plan: Last Dopplers as above, no clinically significant flow limitation Statin previously held while on daptomycin, may consider restarting once washed out --> resume at d/c recommended as not going to be on daptomycin weekly labs while on abx as above (8) Depression: Plan: Patient on nortriptyline and lorazepam [employer]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 Insomnia On home Ambien/lorazepam nightly (9) Hypomagnesemia: Plan: checked given cramping/prior lows --> low at 1.6 2gm IV ordered mag level in AM Plan: Pain control -- added PO option and encouraged less on the PATROL CONDUCTOR pump Rx to CM for abx provided Possible d/c tomorrow if possible as patient anxious for discharge Admission and Anticipated Discharge Date Admission Date: September 26, 2021 Results & Data Results & Data ([facility]) Vital Signs (Past 12 Hours) Vital Signs Temp Pulse Resp BP Pulse Ox 10/04/21 07:46 36.6 C 96 H 18 138/81 91 Laboratory Results 10/04/21 10/04/21 10/04/21 Range/Units 08:08 07:48 07:48 WBC 10.57 (4.8-10.8) K/uL RBC 3.53 L (4.2-5.4) M/uL Hgb 9.5 L (12.0-16.0) g/dL Hct 29.8 L (37-47) % MCV 84.4 (80-100) fL MCH 26.9 (25-34) pg MCHC 31.9 L (32-36) g/dL RDW Std Deviation 47.5 H (36.4-46.3) fL RDW Coeff of Maria Del Carmen 15.4 H (11.5-14.5) % Plt Count 356 (130-400) K/uL MPV 9.5 (7.4-10.4) fL Immature Gran % (Auto) 0.1 % Neut % (Auto) 58.8 % Lymph % (Auto) 23.9 % Bartholomew % (Auto) 13.2 % Eos % (Auto) 3.7 % Baso % (Auto) 0.3 % Neut # (Auto) 6.21 (1.4-6.5) K/uL Lymph # (Auto) 2.53 (1.2-3.4) K/uL Bartholomew # (Auto) 1.40 H (0.11-0.59) K/uL Eos # (Auto) 0.39 (0-0.5) K/uL Baso # (Auto) 0.03 (0-0.2) K/uL Immature Gran # (Auto) 0.01 (0.00-0.02) K/uL Sodium 135 L (136-145) mmol/L Potassium 4.1 (3.5-5.1) mmol/L Chloride 101 (98-107) mmol/L Carbon Dioxide 29 (21-32) mmol/L Anion Gap 5 (3-11) BUN 7 (6-23) mg/dl Creatinine 0.42 L (0.6-1.2) mg/dl Est Cr Clr Drug Dosing 135.2 ml/min Est GFR ( Amer) 131.9 ml/min Est GFR (Non-Af Amer) 113.8 ml/min BUN/Creatinine Ratio 16.7 (10-20) Glucose 124 H (70-99(Fasting)) mg/dl POC Glucose 135 H (70-99) mg/dl Calcium 8.8 (8.5-10.1) mg/dl Magnesium 1.8 (1.7-2.4) mg/dl C-Reactive Protein 3.34 H (0-0.5) mg/dl 10/03/21 10/03/21 10/03/21 Range/Units 20:45 17:19 12:00 WBC (4.8-10.8) K/uL RBC (4.2-5.4) M/uL Hgb (12.0-16.0) g/dL Hct (37-47) % MCV (80-100) fL MCH (25-34) pg MCHC (32-36) g/dL RDW Std Deviation (36.4-46.3) fL RDW Coeff of Maria Del Carmen (11.5-14.5) % Plt Count (130-400) K/uL MPV (7.4-10.4) fL Immature Gran % (Auto) % Neut % (Auto) % Lymph % (Auto) % Bartholomew % (Auto) % Eos % (Auto) % Baso % (Auto) % Neut # (Auto) (1.4-6.5) K/uL Lymph # (Auto) (1.2-3.4) K/uL Bartholomew # (Auto) (0.11-0.59) K/uL Eos # (Auto) (0-0.5) K/uL Baso # (Auto) (0-0.2) K/uL Immature Gran # (Auto) (0.00-0.02) K/uL Sodium (136-145) mmol/L Potassium (3.5-5.1) mmol/L Chloride (98-107) mmol/L Carbon Dioxide (21-32) mmol/L Anion Gap (3-11) BUN (6-23) mg/dl Creatinine (0.6-1.2) mg/dl Est Cr Clr Drug Dosing ml/min Est GFR ( Amer) ml/min Est GFR (Non-Af Amer) ml/min BUN/Creatinine Ratio (10-20) Glucose (70-99(Fasting)) mg/dl POC Glucose 165 H 158 H 169 H (70-99) mg/dl Calcium (8.5-10.1) mg/dl Magnesium (1.7-2.4) mg/dl C-Reactive Protein (0-0.5) mg/dl 10/03/21 Range/Units 09:11 WBC (4.8-10.8) K/uL RBC (4.2-5.4) M/uL Hgb (12.0-16.0) g/dL Hct (37-47) % MCV (80-100) fL MCH (25-34) pg MCHC (32-36) g/dL RDW Std Deviation (36.4-46.3) fL RDW Coeff of Maria Del Carmen (11.5-14.5) % Plt Count (130-400) K/uL MPV (7.4-10.4) fL Immature Gran % (Auto) % Neut % (Auto) % Lymph % (Auto) % Bartholomew % (Auto) % Eos % (Auto) % Baso % (Auto) % Neut # (Auto) (1.4-6.5) K/uL Lymph # (Auto) (1.2-3.4) K/uL Bartholomew # (Auto) (0.11-0.59) K/uL Eos # (Auto) (0-0.5) K/uL Baso # (Auto) (0-0.2) K/uL Immature Gran # (Auto) (0.00-0.02) K/uL Sodium 134 L (136-145) mmol/L Potassium 3.9 (3.5-5.1) mmol/L Chloride 100 (98-107) mmol/L Carbon Dioxide 29 (21-32) mmol/L Anion Gap 5 (3-11) BUN 6 (6-23) mg/dl Creatinine 0.42 L (0.6-1.2) mg/dl Est Cr Clr Drug Dosing 135.2 ml/min Est GFR ( Amer) 131.9 ml/min Est GFR (Non-Af Amer) 113.8 ml/min BUN/Creatinine Ratio 14.3 (10-20) Glucose 155 H (70-99(Fasting)) mg/dl POC Glucose (70-99) mg/dl Calcium 8.5 (8.5-10.1) mg/dl Magnesium 1.6 L (1.7-2.4) mg/dl C-Reactive Protein (0-0.5) mg/dl PG Care Time/CCT Total # of Minutes Spent Total Time Spent with Patient: Total time spent is greater than 50% in coordination of care (as documented) at patient's floor/unit and/or counseling patient: Coding Diagnoses Osteomyelitis M86.9 Cellulitis of right foot L03.115 MRSA (methicillin resistant staph aureus) culture positive Z22.322 HTN (hypertension) I10 Diabetes mellitus type 2, uncontrolled E11.65 Nonobstructive atherosclerosis of coronary artery I25.10 PAD (peripheral artery disease) I73.9 Depression F32.9 Hypomagnesemia E83.42
[2021-10-04] MEDS: LORazepam 1 MG TAB PO SCH (08:41)
[2021-10-04] MEDS ORDERED: lisinopril 10 MG TAB PO SCH (09:00)
[2021-10-04] MEDS: INSULIN ASPART PER UNIT SC SCH (09:18)
--- NOTE | 2021-10-04 09:34 | Orthopedic Progress Note ---
Date of Service October 04, 2021 Assessment & Plan (1) Cellulitis of foot, right: Plan: POD#3 Right foot incision and drainage distal forefoot abscess; Debridement right forefoot skin/subcutaneous tissue/fascia/first and second metatarsal bone; Right medial ankle irrigation debridement wound dehiscence; Debridement medial ankle skin/subcutaneous tissue/fascia Nonweightbearing right lower extremity. Continue IV antibiotics per primary service. Daily dressing changes for a week. Every other day if wounds dry. Right ankle cultures from OR growing. Enterobacter cloacae. Previous cultures also growing Klebsiella oxytoca. Follow up with Dr. Montaño in 1 week. (2) Osteomyelitis: Admission and Anticipated Discharge Date Admission Date: September 26, 2021 Subjective POD 3 Pt ambulating in her room without walker. Discussed NWB status and importance of it for wound healing. Pt understands and stated she was excited to go home today and forgot to get her walker. No other complaints or concerns. Physical Exam Physical Exam: Dressings removed. Toe amp site benign. Mild eschar noted. No drainage. Minimal erythema. Medial foot wound with mild maceration around edges. Scant serous drainage. No odor. No purulence. Redressed with Aquacel AG, 4x4's, kerlix. Remainder dressed with adaptic, 4x4's, kerlix Results & Data ([facility]) Vital Signs (Past 12 Hours) Vital Signs Temp Pulse Resp BP Pulse Ox 10/04/21 07:46 36.6 C 96 H 18 138/81 91
--- NOTE | 2021-10-04 10:02 | Discharge Summary ---
Date of Service October 04, 2021 Admission HPI Per Admitting Provider Mariana is a 56-year-old female with a past medical history of poorly controlled type 2 diabetes mellitus, peripheral artery disease, atypical chest pain, and osteomyelitis of the right foot with surgical intervention 08/2021 as noted below who presents with worsening pain in her foot and whose x-ray of the right foot and ankle shows acute osteomyelitis of the first and second metatarsal heads with moderate anterior medial soft tissue swelling of the ankle. 09/10/2021: Patient with right medial ankle debridement, first metatarsal head resection, second metatarsal head resection, irrigation and debridement of right great toe, tenosynovectomy of the posterior tibial tendon, flexor digitorum longus tendon, and flexor hallux longus tendon with Dr. Chu. Dr. Lin was consulted for partial artery disease, repeat ultrasound did not show significant stenosis requiring intervention at that time. Mariana seen the bedside. She reports her foot has rapidly felt worse over the last 3 days. She has had some tingling in the distal aspect of her right foot for couple of days before that. She feels that the pain goes down to her bone and radiates up to her mid calf. She has been taking her daptomycin infusions as prescribed. She endorses that she has had some chills, and some nausea with decreased appetite. Denies chest pain, chest pressure, presyncope, syncope, lightheadedness, dizziness, shortness of breath, cough, constipation, diarrhea. Sensation is intact in her feet, but she notes that her right foot throbs very badly" has a pulse of its own ". She took her medications this morning. DVT prophylaxis: Held pending surgical evaluation, SCDs at this time Medical History: Reviewed Medications: Reviewed Surgical History: Reviewed Allergies: Reviewed Social History: No tobacco use in 9 months, denies alcohol use, history of medical marijuana use with no recent use Code Status: Full code Admission Exam Per Admitting Provider General: A&Ox3. NAD. Cooperative. HEENT: Atraumatic, normocephalic. Pulm: CTAB A&P. -wheezes, -rales, -rhonchi. Symmetrical chest rise. No increase in work of breathing. No respiratory distress. Cardiac: RRR, -mrg. Radial pulses intact and symmetrical. Abdominal: Nontender, nondistended, soft. BS present. No extremities: Right foot with medial malleolus open ulceration and sutures in place, post surgical closure at distal medial foot with sutures in place. Right foot is erythematous at both postsurgical sites with some spreading erythema up to the distal third of the lower extremity. Bounding PT pulses. Sensation intact to soft touch bilaterally. Right foot/ankle strength assessment limited by pain. Left ankle dorsiflexion/plantarflexion intact. Scoop Filler strength intact and symmetrical. Principal Diagnosis Osteomyelitis Discharge Exam General Appearance: WD/WN female sitting up in bed, no acute distress HEENT: normocephalic, atraumatic, hearing intact grossly, mmm, poor dentition noted Trachea midline, without deviation Resp: CTAB, diminished in bases, no w/c/r, on room air CV: RRR, no m/r/g, no edema/calf tenderness MSK/Neuro:R foot with dressing in place, good cap refill, toes mobile, NVI Psych: alert, oriented x 3 Discharge Data Allergies Allergy/AdvReac Type Severity Reaction Status Date / Time morphine Allergy Severe blisters Verified 09/26/21 15:05 in mouth Sulfa (Sulfonamide Allergy Severe rash/swelli Verified 09/26/21 15:05 Antibiotics) ng vancomycin Allergy Intermediate YULIYA Verified 09/26/21 15:05 SYNDROME Consultations 09/26/21 16:33 ED Decision to Admit Stat 09/27/21 07:53 Consult Orthopedic Surgery Routine 09/29/21 14:34 Consult Infectious Diseases Routine Procedures Performed Operation Date: 09/30/21 07:00 Actual Procedures p 1. Right foot incision and drainage distal forefoot abscess; Debridement right forefoot skin/subcutaneous tissue/fascia/first and second metatarsal bone; Right medial ankle irrigation debridement wound dehiscence; Debridement medial ankle skin/subcutaneous tissue/fascia(Right) - Akhil Chu DO Ordered Studies Ankle X-Ray 09/26/21 14:51 XR foot RT min 3V routine, XR ankle RT min 3V routine HISTORY: 56 years-old Female r/o osteomyelitis follow-up study in a patient with history of osteomyelitis and prior surgery COMPARISON: Right foot radiographs 08/09/2021, MRI right foot 09/07/2021 TECHNIQUE: 3 views of the right foot with 3 views of the right ankle FINDINGS: FOOT: Moderate soft tissue swelling of the forefoot with deep tissue air adjacent to the amputation stumps.. There is prior partial resection of the first and second digits at the level of the metatarsal-phalangeal joints. Osseous erosions with bony fragmentation involves the first and second metatarsal heads. There is mild osteoarthritis of the foot and ankle. Small enthesophytes of the calcaneus. No acute fracture or opaque foreign body. ANKLE: Moderate anteromedial soft tissue swelling with suggested medial soft tissue ulcer. No acute fracture, dislocation or osseous erosion. IMPRESSION: 1. Partial partial amputation of the first and second digits at the level of the metatarsal-phalangeal joints. There is evidence of acute osteomyelitis involving the first and second metatarsal heads. 2. Moderate anteromedial soft tissue swelling of the ankle. ACT 112: Negative or not required by law. The above report was generated using voice recognition software. It may contain grammatical, syntax or spelling errors. Electronically signed by: Puneet Howard M.D. 09/26/2021 4:24 PM Foot X-Ray 09/26/21 14:51 XR foot RT min 3V routine, XR ankle RT min 3V routine HISTORY: 56 years-old Female r/o osteomyelitis follow-up study in a patient with history of osteomyelitis and prior surgery COMPARISON: Right foot radiographs 08/09/2021, MRI right foot 09/07/2021 TECHNIQUE: 3 views of the right foot with 3 views of the right ankle FINDINGS: FOOT: Moderate soft tissue swelling of the forefoot with deep tissue air adjacent to the amputation stumps.. There is prior partial resection of the first and second digits at the level of the metatarsal-phalangeal joints. Osseous erosions with bony fragmentation involves the first and second metatarsal heads. There is mild osteoarthritis of the foot and ankle. Small enthesophytes of the calcaneus. No acute fracture or opaque foreign body. ANKLE: Moderate anteromedial soft tissue swelling with suggested medial soft tissue ulcer. No acute fracture, dislocation or osseous erosion. IMPRESSION: 1. Partial partial amputation of the first and second digits at the level of the metatarsal-phalangeal joints. There is evidence of acute osteomyelitis involving the first and second metatarsal heads. 2. Moderate anteromedial soft tissue swelling of the ankle. ACT 112: Negative or not required by law. The above report was generated using voice recognition software. It may contain grammatical, syntax or spelling errors. Electronically signed by: Puneet Howard M.D. 09/26/2021 4:24 PM Ankle MRI 09/26/21 17:58 MR foot RT wo/w con, MR ankle RT wo/w con CLINICAL HISTORY: Osteomyelitis, MR of foot and ankle w contrast TECHNIQUE: Multiplanar multisequence MR images of the right foot and right ankle were obtained. Comparison: Comparison is made to right foot and ankle radiographs 09/26/2021 FINDINGS: Bones: Patient is status post amputation of the first and second digits. Bony edema is seen in the first, second, and third digit metatarsals. Tendons: Tenosynovitis and soft tissue edema is seen in the tibialis posterior and flexor digitorum longus tendons. Soft tissue: Soft tissue swelling is seen most prominent in the medial forefoot. IMPRESSION: Findings a compatible with cellulitis and osteomyelitis in the forefoot affecting the first through third metatarsals. Tenosynovitis and possible cellulitis is seen in the posterior compartment of the ankle. ACT 112: Negative or not required by law. Electronically signed by: Neil Mendieta M.D. 09/27/2021 9:26 AM Foot MRI 09/26/21 17:58 MR foot RT wo/w con, MR ankle RT wo/w con CLINICAL HISTORY: Osteomyelitis, MR of foot and ankle w contrast TECHNIQUE: Multiplanar multisequence MR images of the right foot and right ankle were obtained. Comparison: Comparison is made to right foot and ankle radiographs 09/26/2021 FINDINGS: Bones: Patient is status post amputation of the first and second digits. Bony edema is seen in the first, second, and third digit metatarsals. Tendons: Tenosynovitis and soft tissue edema is seen in the tibialis posterior and flexor digitorum longus tendons. Soft tissue: Soft tissue swelling is seen most prominent in the medial forefoot. IMPRESSION: Findings a compatible with cellulitis and osteomyelitis in the forefoot af fecting the first through third metatarsals. Tenosynovitis and possible cellulitis is seen in the posterior compartment of the ankle. ACT 112: Negative or not required by law. Electronically signed by: Neil Mendieta M.D. 09/27/2021 9:26 AM Chest X-Ray 09/29/21 10:09 XR chest 1V portable CLINICAL HISTORY: Foot pain TECHNIQUE: Single frontal radiograph of the chest was obtained. Comparison: Comparison is made to chest 2 views 08/09/2021 FINDINGS: A left PICC tip is in the mid SVC. The cardiomediastinal silhouette is normal. Lungs are underinflated but clear. No evidence of pleural effusion or pneumothorax. IMPRESSION: No acute chest disease. ACT 112: Negative or not required by law. Electronically signed by: Neil Mendieta M.D. 09/29/2021 11:44 AM Chest X-Ray 10/04/21 08:41 XR chest 1V portable HISTORY: 56 years-old Female hypoxia acute hypoxia COMPARISON: Chest radiograph 09/29/2021 TECHNIQUE: Portable AP view the chest FINDINGS: Unchanged positioning of the left-sided PICC. The cardiac mediastinal and hilar silhouettes are unchanged. No pneumothorax or overt pulmonary edema. Mild linear subsegmental bibasilar densities. The bones appear grossly intact. Possible right shoulder rotator cuff calcific tendinosis. IMPRESSION: 1. Unchanged positioning of the left-sided PICC. No pneumothorax. 2. Mild linear bibasilar densities suggest atelectasis. ACT 112: Negative or not required by law. The above report was generated using voice recognition software. It may contain grammatical, syntax or spelling errors. Electronically signed by: Puneet Howard M.D. 10/04/2021 11:40 AM Hospital Course (1) Osteomyelitis: Osteomyelitis of right foot/ankle Worsening while on daptomycin - granted question whether Daptomycin failure vs definitive treatment for osteo is surgical removal so simply may not be getting good bone absorption -- Patient would like to avoid amputation however may ultimately require more aggressive surgical management? -- Patient also noted to remove her dressing on multiple occasions when in room with past provider, not noted during my encounter 10/03. ? 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 Right NATHAN normal, left NATHAN moderately decreased Orthopedics consulted S/P I&D of distal forefoot abscess; Debridement; Tenosynovectomy of tibial and flexor digitorum longus tendon with Dr Chu on 09/30 Leukocytosis resolved. Afebrile. CRP 1.57--> 4.5 and will repeat in AM to ensure trending down (may be skewed given recent surgery) and will need weekly monitoring on abx. Obtained surface cultures of wound - growing Enterobacter cloacae and Klebsiella oxytoca; surgical culture with Enterobacter cloacae * Patient refused ID consultation however recommendations given by Dr. Minda Vargas to stop Vancomycin and convert to Cefepime x 6 weeks if unable to get source control. Might be worth reaching out Sunday vs putting in for another consultation.. Able to de-escalate, Rocephin? It appears she was on oral antibiotics on previous admissions. On September 02 she was started on daptomycin. She would have only completed approximately 4 weeks of this treatment. It may be best served to consider continuing daptomycin for an additional 2 weeks to cover the previous MRSA and cover these gram-negative organisms for an additional [address] [place] and can base abx therapy on current cx and just continue cefepime x 6 weeks, but will continue Vanco x 2 weeks to ensure coverage given prior cx MRSA. Advised AGAINST switching/de-escalating to rocephin given increased resistance with enterobacter species Pain control with dilaudid [employer] while inpatient and transitioned to oxycodone 5- 10mg Q4-6h prn as taking last admission. [facility] Continued on Cefepime for 6 week course, additional 2 weeks vanco although per ID could d/c this but patient believed helped and missed 2 weeks so this was continued --> PICC already in place to RUE Patient demanded to leave when arrived. Abx to be delivered tonight. Got cefepime early but missed 1 dose of vanocmycin --awake of risk ASA 81mg BID at d/c for DVT prophylaxis as discussed with PA prior to discharge Follow up with Dr Chu in 1 week -- ran out this morning, asked RN to call pharmacy to refill --> She took oxycodone 5-10 mg Q4-6 hours last time and this has been ordered. Encouraged patient to utilize PO options overnight in hopes oral pain controlled by tomorrow as she is hopeful for d/c tomorrow. Continue nortyptyline Rx for Cefepime/Vanco and weekly labs to CM provided continue IV antibiotics as stated below in discharge instructions (2) Cellulitis of right foot: As above, improving (3) MRSA (methicillin resistant staph aureus) culture positive: History of positive MRSA, see above -- will continue vanco x 2 weeks to complete the 6 weeks given prior cx however per ID could cut this short (4) HTN (hypertension): Improving with better pain control, currently 138/81 - Lisinopril on hold pending surgical intervention -- > resumed for AM 10/04 - Continued Metoprolol 50 mg daily (5) Diabetes mellitus type 2, uncontrolled: - A1c 11.1 Home Metformin held while inpatient, resumed at discharge Continue Lantus 15 units nightly with SSI and will monitor and adjust (6) Nonobstructive atherosclerosis of coronary artery: Cardiac cath 09/2019 --> LAD 20 to 30% disease, RCA less than 30% stenosis, LCx with mild luminal irregularities Patient with no chest pain, cardiac symptoms on admission No cardiac symptoms on admission or chest pain reported (7) PAD (peripheral artery disease): Last Dopplers as above, no clinically significant flow limitation Statin previously held while on daptomycin, may consider restarting once washed out --> resume at d/c recommended as not going to be on daptomycin weekly labs while on abx as above (8) Depression: Patient on nortriptyline and lorazepam [employer], continue. Insomnia On home Ambien/lorazepam nightly (9) Hypomagnesemia: checked given cramping/prior lows --> low at 1.6 2gm IV ordered mag level in AM wnl Total Time Total Time Spent Total Time Spent (In Minutes): 65 Discharge Plan Discharge Items Patient Disposition: Home - Self-Care Reason For Visit: OSTEOMYELITIS Discharge Diagnosis: Osteomyelitis Goals: You have been hospitalized for an urgent problem which required surgery. During your stay at [facility], we have made an effort to correct the problem that brought you to the hospital while keeping you as comfortable as possible. Surgery and medications were used to bring your condition under control and your discharge instructions will include directions for any medications you should take after leaving the hospital. Please make sure to follow the advice of your surgeon regarding follow up with the surgeon and with your primary care provider. Activity: As commented below Weightbearing: Left non-weightbearing Non-emergency contact: Primary Care Provider and Surgeon Call non-emergency contact if: you have any medication questions, your symptoms worsen, your pain is not controlled and you have a fever Follow-up/Referrals: Ashok Clemons MD [Hospitalist] - Akhil Chu DO [Surgeon] - 10/11/21 12:40 pm (Follow up in 7-[address] Chu or Robb Guzman PA-C APPT WILL BE WITH DR CHU.) Diet: Carb Consistent or DM2 and Heart Healthy Addtl Attending Provider Instructions: You have been hospitalized for ongoing foot infection to the bone. Orthopedics, Dr Chu, was consulted and you had I&D of distal forefoot abscess; Debridement; Tenosynovectomy of tibial and flexor digitorum longus tendon with Dr Chu on 09/30. Discussion was had the Infectious Disease specialist regarding cultures, and you will be continued on Vancomycin for additional two weeks until 10/12/2021, and the Cepefime will be for 6 weeks, which will end on November 11, 2021. You will have weekly labs drawn while on antibiotics and have been continued with home health. You will need to have follow up with Dr Chu in 1 week to monitor your progress. Continue dressing changes as instructed. You will continue aspirin 81mg by mouth TWICE daily for DVT prevention. You have been sent Percocet to take 1-2 tablets as needed for pain control every 4-6 hours.. Use Tylenol for non-severe pain, but please ensure not taking more than 3,000 mg in a 24 hour period (percocet dose contain some tylenol as well, so you will need to be mindful of such). You should consider a bowel regimen if issues with constipation while on these medications as this can worsen abdominal pain. You should follow up with your PCP in the next 7-10 days. Please return to the emergency department with any fever, chills, increased pain/redness/or drainage from foot, or for any other symptoms concerning for you. It has been a pleasure being a part of the medical team providing for you while you have been in the hospital. Take care! 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 Use of Aquacel AG on medial wound until dry. Continue use of adaptic, 4x4's, kerlix wrap and ayad wrap. Call Dr. Chu's office if you have increased pain, swelling, redness, drainage from wounds. ABSOLUTELY NO WEIGHTBEARING ON THE LEFT FOOT PLEASE! Follow up with Dr. Chu or Robb Guzman PA-C in 7-10 days. [phone] Pending Studies at Discharge: No Stand-Alone Forms: [facility] [employer], Smoking Cessation Medications and DC Order Prescriptions: New oxycodone-acetaminophen [Percocet] 5-325 mg Tablet 1 - 2 tab PO Q4H PRN (Reason: pain) Qty: 36 RF: 0 lisinopril 10 mg Tablet 10 mg PO QAM Qty: 30 RF: 0 cefepime 2 gram recon soln 2 g IV Q8H Qty: 1 RF: 0 vancomycin 1.25 gram recon soln 1.25 g IV Q8H Qty: 1 RF: 0 Continued (DME) lancets [OneTouch UltraSoft Lancets] Misc See Rx Instructions .ROUTE .MEDSUPPLY Qty: 100 RF: 0 lorazepam [Ativan] 1 mg Tablet 1 mg PO TID Qty: 21 RF: 0 albuterol sulfate [Proventil HFA] 90 mcg/actuation HFA aerosol inhaler 1 puff inhalation QID PRN (Reason: Shortness Of Breath) RF: 0 metoprolol succinate [Toprol XL] 50 mg tablet extended release 24 hr 50 mg PO QAM RF: 0 metformin 500 mg tablet 500 mg PO BID Qty: 60 RF: 0 Basaglar KwikPen U-100 Insulin 100 unit/mL (3 mL) insulin pen 15 unit SUBCUT HS Qty: 1 RF: 0 insulin lispro [Humalog KwikPen Insulin] 100 unit/mL insulin pen 3 unit SUBCUT TIDM Qty: 1 RF: 0 cyclobenzaprine 10 mg Tablet 10 mg PO TID RF: 0 ropinirole 2 mg Tablet 4 mg PO HS RF: 0 zolpidem [Ambien] 10 mg Tablet 10 mg PO HS RF: 0 nortriptyline [Pamelor] 50 mg Capsule 100 mg PO HS RF: 0 Changed aspirin [Aspirin Low Dose] 81 mg Tablet,Delayed Release (Dr/Ec) 81 mg PO BID Qty: 60 RF: 0 Discontinued daptomycin 500 mg recon soln 300 mg IV DAILY 40 Days Qty: 10 RF: 0 oxycodone 5 mg Tablet 5 - 10 mg PO Q4H MDD 8 PRN (Reason: pain) Qty: 36 RF: 0 Discharge Orders: Discharge Order (Routine); Ordered 10/04/21 Ordered By: Eva Luther Admission Data Admit Date/Time: 09/26/21 17:54 Attending Provider: Ricardo Hernadez Admit Provider: Sajan Allan Primary Care Provider: Vince Vernon Other Providers: [facility] ; Sajan Allan ; Akhil Chu ; Sylvain Melendrez ; Esthela Curtis ; Harish Arciniega I. ; Cristhian Oconnor II ; Minda Vargas ; Dami Willard ; David Banerjee Other Interventions: Discharge Summary Assessment (RN) Last Done: 10/04/21 11:19 Coding Level of Care Code D/C DAY MANAGEMENT >30 MINS Diagnoses Osteomyelitis M86.9 Cellulitis of right foot L03.115 MRSA (methicillin resistant staph aureus) culture positive Z22.322 HTN (hypertension) I10 Diabetes mellitus type 2, uncontrolled E11.65 Nonobstructive atherosclerosis of coronary artery I25.10 PAD (peripheral artery disease) I73.9 Depression F32.9 Hypomagnesemia E83.42
[2021-10-04] MEDS ORDERED: ASPIRIN 81 MG ECTAB PO SCH (10:15)
--- NOTE | 2021-10-04 11:42 | XRay Report ---
XR chest 1V portable HISTORY: 56 years-old Female hypoxia acute hypoxia COMPARISON: Chest radiograph 09/29/2021 TECHNIQUE: Portable AP view the chest FINDINGS: Unchanged positioning of the left-sided PICC. The cardiac mediastinal and hilar silhouettes are uncha nged. No pneumothorax or overt pulmonary edema. Mild linear subsegmental bibasilar densities. The bon es appear grossly intact. Possible right shoulder rotator cuff calcific tendinosis. IMPRESSION: 1. Unchanged positioning of the left-sided PICC. No pneumothorax. 2. Mild linear bibasilar densities suggest atelectasis. ACT 112: Negative or not required by law. The above report was generated using voice recognition software. It may contain grammatical, syntax o r spelling errors. Electronically signed by: Puneet Howard M.D. 10/04/2021 11:40 AM
== END 2021-10-04 11:36 | disposition home health service (06) | DRG 501 ==
LOC: ED 10:55 → 3W 17:54 → SUPCPDRO 17:54 → SUATTDRO 17:54 → 3W 21:03

== ENCOUNTER 2021-11-04 10:17 | Inpatient (IN) ==
[2021-11-04] MEDS ORDERED: VANCOMYCIN CONSULT ACTIVE PRN ×2 (10:57→15:49)
[2021-11-04] MEDS ORDERED: VANCOMYCIN HCL 1,750 MG in SODIUM CHLORIDE 0.9% 500 ML IV ONE (10:57)
[2021-11-04] MEDS ORDERED: ACETAMINOPHEN 1,000 MG/100 ML VIAL IV STA (10:59)
[2021-11-04] MEDS ORDERED: SODIUM CHLORIDE 0.9% 1000ML 1,000 ML IV ONE (10:59)
[2021-11-04] MEDS ORDERED: fentaNYL citrate 100 MCG/2 ML VIAL IV STA (11:00)
[2021-11-04] MEDS ORDERED: CEFEPIME 2,000 MG/20 ML VIAL IV STA (11:03)
[2021-11-04 11:27] LABS: Basophils # (auto) 0.05 K/uL (0-0.2); Basophils % (auto) 0.4 %; Eosinophils % (auto) 2.3 %; Hematocrit (blood only) 38.3 % (37-47); Hemoglobin 12.3 g/dL (12.0-16.0); Immature Granulocytes # (auto) 0.02 K/uL (0.00-0.02); Immature Granulocytes % (auto) 0.2 %; Lymphocytes # (auto) 2.69 K/uL (1.2-3.4); Lymphocytes % (auto) 20.8 %; Mean Corpuscular Hemoglobin 25.3 pg (25-34); Mean Corpuscular Hgb Conc 32.1 g/dL (32-36); Mean Corpuscular Volume 78.8 fL (80-100); Monocytes # (auto) 1.02 K/uL (0.11-0.59); Monocytes % (auto) 7.9 %; Neutrophils # (auto) 8.86 K/uL (1.4-6.5); Neutrophils % (auto) 68.4 %; Platelet Count 348 K/uL (130-400); RDW Coefficient of Variation 14.4 % (11.5-14.5); Red Blood Count 4.86 M/uL (4.2-5.4); White Blood Count 12.94 K/uL (4.8-10.8)
[2021-11-04 11:40] LABS: INR 0.9 (0.9-1.1); Partial Thromboplastin Ratio 0.8; Partial Thromboplastin Time 22.1 Seconds (21.0-31.0); Prothrombin Time 9.8 Seconds (9.0-12.0)
--- NOTE | 2021-11-04 11:42 | XRay Report ---
XR tibia fibula RT 2V CLINICAL HISTORY: Pain radiating into the right ankle and lower leg.. Patient reports foot infectio n for one year. COMPARISON STUDY: No previous studies for comparison. TECHNIQUE: AP and lateral right lower leg views FINDINGS: Bones: There is no evidence for an acute fracture or dislocation. There is no lytic or blastic lesion . Joints: The joint spaces are maintained. The bones are in anatomic alignment. Soft tissues: There is no focal soft tissue abnormality. There is no radiopaque foreign body. IMPRESSION: 1. No acute osseous pathology. ACT 112: Negative or not required by law. Electronically signed by: Jaylon Connell M.D. 11/04/2021 11:41 AM
--- NOTE | 2021-11-04 11:56 | XRay Report ---
XR foot RT min 3V routine CLINICAL HISTORY: pain, h/o osteo COMPARISON: Right foot radiographs September 26, 2021 and MRI of the right forefoot September 26, 2021. FINDINGS: Note is again made of postoperative findings consistent with amputation of the first and s econd digits at the level of the metatarsal necks. Bony erosion of the remaining portions of the firs t and second metatarsals has mildly increased since exam of September 26, 2021. Interval development o f extensive periosteal reaction is now noted. There are soft tissue swelling. No additional sites of suspected osteomyelitis within the right foot are present. There's no acute fracture. IMPRESSION: Status post right first and second digit amputations, as described above. Mild interval bony erosion of the remaining portions of the first and second metatarsals with development of perios teal reaction. These findings are highly suggestive of osteomyelitis of the right first and second me tatarsals. ACT 112: Negative or not required by law. Electronically signed by: Wilver Powell M.D. 11/04/2021 11:54 AM
[2021-11-04 12:14] LABS: Albumin Globulin Ratio 1.5 (0.9-2); Albumin Level 4.6 gm/dl (3.4-5.0); BUN Creatinine Ratio 25.9 (10-20); Bilirubin,Total 0.2 mg/dl (0.2-1.0); C Reactive Protein 0.81 mg/dl (0-0.5); Calcium 9.8 mg/dl (8.5-10.1); Creatinine Clr Calc Pharmacy 97.6 ml/min; Est GFR (African American) 118.6 ml/min; Est GFR (Non-African American) 102.3 ml/min; Globulin 3.1 gm/dl (2.5-4.0); Magnesium 1.7 mg/dl (1.7-2.4); Potassium 4.1 mmol/L (3.5-5.1); Total Protein 7.7 gm/dl (6.0-8.3)
[2021-11-04 12:30] LABS: Appearance Urine Clear (Clear); Bilirubin Urine Negative (Negative); Blood Urine Negative (Negative); Color Urine Yellow; Glucose Urine UA 3+ (Negative); Ketones Urine Negative (Negative); Leukocyte Esterase Urine Negative (Negative); Nitrite Urine Negative (Negative); Protein Urine Negative (Negative); Specific Gravity Urine 1.035 (1.000-1.030); Urobilinogen Urine Negative (Negative); pH Urine 6.5 (4.5-7.5)
--- NOTE | 2021-11-04 12:37 | Emergency Department Note ---
Impression & Plan Osteomyelitis, Leukocytosis, Hyperglycemia due to type 2 diabetes mellitus ED Provider Note NAME: EILEEN ESCOBAR AGE: 56 SEX: F ARRIVES VIA: Walk-In INFORMANT: Patient ED PROVIDER(S): Simba Del Real MD CHIEF COMPLAINT: Leg infection. PLAN: Disposition: Admission. MEDICAL DECISION MAKING: The patient is a pleasant 56-year-old woman with a past medical history of PAD, IDDM2, osteomyelitis of her right foot s/p right great toe and 2nd toe amputation with recent admission in September for acute on chronic infection treated with surgical debridement and IV antibiotics where she was discharged with PICC line and treatment with cefepime and vancomycin for 6 weeks who presents emerge department for her report of worsening appearance of her right ankle wound with redness and yellow discharge with increased pain of the foot ankle and right lower leg. On arrival the patient is no acute distress, afebrile with stable vital signs. She appears clinically dry. Her right ankle medial malleolus shows an open wound with thin yellow-tinged eschar with underlying pink tissue. There is scant contusion to the periphery of the wound with punctate areas of skin breakdown. There is no crepitus. The patient has moderate pain response to light touch of the foot ankle and lower leg. Cefepime and Vancomycin ordered. WBC 12.9K, nonspecific. H/H and platelets wnl. ESR wnl. CRP mildly elevated at 0.8.Glucose 455 improved to 370 after IVF hydration. Chemistry without acidosis. Lactate 1.5, wnl. Electrolytes unremarkable. LFTs without significant abnormality. Procalcitonin is undetectable. UA without convincing evidence of infection. Covid-19 RNA, NAAT negative. Plain films of right lower leg demonstrate mild interval bony erosion of the remaining portions of the first and second metatarsals with development of periosteal reaction, c/w osteomyelitis. Appreciate consultation [facility], Robb TREVIÑO who evaluated the patient at bedside. Given the patient's description of worsening symptoms correlating with change from IV antibiotics to oral agrees with plan for admission for continued IV antibiotics, monitoring, updated MRI. Case was discussed with Leonel White [facility] KR[facility] with Dr. Ko, [facility] hospi talist, who will evaluate the patient for admission. Triage Nursing notes reviewed and agree them. Prior medical records reviewed Vital Signs: reviewed and remarkable for no significant abnormalities Differential diagnosis: Cellulitis, abscess, MRSA infection, DVT, necrotizing fasciitis, dermatitis, drug eruption, allergic reaction, as well as other pathologies. ER treatment provided: See below. Diagnostics interpreted by me: ECG: NSR, 99 bpm, no ectopy, no overt ST elevation or depression. Cardiac Monitoring: An order for continuous cardiac monitoring was placed and demonstrated NSR, 99 bpm, no ectopy. Laboratory studies: See below Imaging studies: See below Consultation(s): [facility] orthopedics, Robb White [facility] with Dr. Ko, [facility] hospitalist HPI: The patient is a pleasant 56-year-old woman with a past medical history of PAD, IDDM2, osteomyelitis of her right foot s/p right great toe and 2nd toe amputation with recent admission in September for acute on chronic infection tr eated with surgical debridement and IV antibiotics where she was discharged with PICC line and treatment with cefepime and vancomycin for 6 weeks who presents emerge department for her report of worsening appearance of her right ankle wound with redness and yellow discharge with increased pain of the foot ankle and right lower leg. ROS: See above HPI for pertinent positives & negatives. A total of 10 systems reviewed and were otherwise negative. VITALS:See Below PHYSICAL EXAMINATION: GENERAL: Awake, alert, chronically ill-appearing, in no distress HENT: Normocephalic, atraumatic. Oropharynx with dry mucous membranes and otherwise unremarkable. EYES: Normal conjunctiva. Sclera non-icteric. NECK: Supple. No nuchal rigidity. FROM. No JVD. RESPIRATORY: Clear to auscultation. CARDIAC: Regular rate, normal rhythm. Extremities warm and well perfused. Pulses equal. ABDOMEN: Soft, non-distended. No tenderness to palpation. No rebound or guarding. No masses. RECTAL: Deferred. MUSCULOSKELETAL: Chest examination reveals no tenderness. The back is symmetrical on inspection without obvious abnormality. There is no CVA tenderness to palpation. No joint edema. LOWER EXTREMITIES: Calves are equal size bilaterally. s/p right great toe and 2nd toe amputation. Right ankle medial malleolus shows an open wound with thin yellow-tinged eschar with underlying pink tissue. There is scant contusion to the periphery of the wound with punctate areas of skin breakdown. There is no crepitus. The patient has moderate pain response to light touch of the foot ankle and lower leg. NEURO: Normal sensorium. No sensory or motor deficits noted. SKIN: No rash or jaundice noted. ED COURSE: Critical Care: I have personally spent greater than 35 minutes of critical care time in the direct management of this patient. This includes bedside care, interpretation of diagnostic studies, and testing, discussion with consultants, patient, and family members, and other required patient management activities. This 35 minutes is in excess of all separately billable procedures. Simba Del Real MD Past Med/Surg History Medical History 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 No issues per anesthesia postop progress note. Anemia Cellulitis Chronic back pain Depression Diabetic peripheral neuropathy DM2 (diabetes mellitus, type 2) IDDM, A1c 07/2021-11% Gastritis GIB (gastrointestinal bleeding) History of amputation of great toe Hyperlipidemia Insulin dependent diabetes mellitus Nonobstructive atherosclerosis of coronary artery Numbness of lower extremity Peripheral neuropathy Right second toe ulcer Seizures Surgical History History of cardiac cath done at [facility]; 09/22/19; LM - mild luminal irregularities. LAD - mid 20-30%, distal with myocardial bridge & 30% stenosis. L Cx - mild luminal irregularities. RCA - proximal <30% stenosis; mid/distal vessel mild plaques. PDA - mild luminal irregularities. History of esophagogastroduodenoscopy (EGD) Family History Mother , age 63 Myocardial infarction Father , age 68 or 69 Myocardial infarction Brother S/P CABG (coronary artery bypass graft) Sister Myocardial infarction x 3; she is 57yo Social History Smoking Status: Former smoker Tobacco Type: Cigarettes packs per day: 1; Years Smoked: 20; Cigarettes Per Day: last week; Second Hand Exposure: No; Do You Dip or Chew Tobacco: No; Tobacco Cessation Education Requested by Patient: No Hx Alcohol Use: No Hx Substance Use: Yes Last Used Substance: Days (ago) Last Used Substance Other:: 2 days ago Substance Use Type Other:: medical marijuana Preferred Language: Thai Communication Ability: Effective Seasonal Customer Service Associate Required: No Beliefs That Will Affect Care: None marital status: Current Living Situation: Spouse and Family 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; 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 How many Children do You have: 2 Other Information That Helps Us Care for You: No other: raising a grandchild as well; lives in [place] Feels Safe at Home: Yes Safety Concerns: Feels Safe At This Time Assistive Devices: Glasses Assistive Devices Comment: reading glasses Allergies Allergies Allergy/AdvReac Type Severity Reaction Status Date / Time morphine Allergy Severe blisters Verified 11/04/21 11:13 in mouth Sulfa (Sulfonamide Allergy Severe rash/swelli Verified 11/04/21 11:13 Antibiotics) ng vancomycin Allergy Intermediate YULIYA Verified 11/04/21 11:14 SYNDROME---CAN TAKE IF VERY SLOW DRIP. Home Meds Home Medications Medication Instructions Recorded Confirmed cyclobenzaprine 10 mg tablet 10 mg PO TID 10/19/20 11/04/21 nortriptyline 50 mg capsule 100 mg PO HS 10/19/20 11/04/21 (Pamelor) ropinirole 2 mg tablet 4 mg PO HS 10/19/20 11/04/21 zolpidem 10 mg tablet (Ambien) 10 mg PO HS 10/19/20 11/04/21 lancets (OneTouch UltraSoft #100 ea 11/12/20 07/14/21 Lancets) albuterol sulfate 90 mcg/actuation 1 puff INHALATION QID PRN 03/05/21 11/04/21 aerosol inhaler (Proventil HFA) metoprolol succinate 50 mg 50 mg PO QAM 03/05/21 11/04/21 tablet,extended release 24 hr (Toprol XL) ciprofloxacin HCl 500 mg tablet 500 mg PO Q12H 11/04/21 11/04/21 lorazepam 1 mg tablet (Ativan) 1 mg PO TID PRN 11/04/21 11/04/21 Previous Rx's Medication Instructions Recorded insulin glargine 100 unit/mL (3 15 unit SUBCUT HS #1 ml 08/18/21 mL) subcutaneous pen (Basaglar KwikPen U-100 Insulin) insulin lispro 100 unit/mL 3 unit SUBCUT TIDM #1 ml 08/18/21 subcutaneous pen (Humalog KwikPen (U-100) Insulin) metformin 500 mg tablet 500 mg PO BID #60 tab 08/18/21 aspirin 81 mg tablet,delayed 81 mg PO BID #60 tab 10/04/21 release (Aspirin Low Dose) lisinopril 10 mg tablet 10 mg PO QAM #30 tab 10/04/21 oxycodone-acetaminophen 5 mg-325 1 - 2 tab PO Q4H PRN #36 tab 10/04/21 mg tablet (Percocet) Results & Data (ED) Vital Signs Vital Signs - 24 hr 11/04/21 10:26 11/04/21 11:20 11/04/21 12:10 Temperature 36.8 C Temperature Source Temporal Artery Scan Pulse Rate 105 H Pulse Rate [Left Finger] 98 H Pulse Rhythm [Left Finger] Regular Pulse Strength [Left Finger] Normal Respiratory Rate 16 18 20 Respiratory Effort / Characteristics Non-Labored Spontaneous Non-Labored Spontaneous Respiratory Depth Normal Respiratory Pattern Regular Blood Pressure 183/87 H Blood Pressure [Left Arm] 172/76 H Blood Pressure Mean 119 Blood Pressure Mean [Left Arm] 108 Blood Pressure Position [Left Arm] Sitting Pulse Oximetry 97 100 98 Oxygen Delivery Method Room Air Room Air Room Air Sepsis Recent Fever Within 48 Hours No Sepsis New/Unexplained Change in Mental Status No Sepsis Action Taken by Nursing No Action Required Laboratory Data Attestation: I reviewed the patient's lab results. Result diagrams: 11/04/21 11:12 11/04/21 11:12 Lab Results 11/04/21 11/04/21 11/04/21 Range/Units 11:12 11:12 11:12 WBC 12.94 H (4.8-10.8) K/uL RBC 4.86 (4.2-5.4) M/uL Hgb 12.3 (12.0-16.0) g/dL Hct 38.3 (37-47) % MCV 78.8 L (80-100) fL MCH 25.3 (25-34) pg MCHC 32.1 (32-36) g/dL RDW Std Deviation 41.0 (36.4-46.3) fL RDW Coeff of Maria Del Carmen 14.4 (11.5-14.5) % Plt Count 348 (130-400) K/uL MPV 10.0 (7.4-10.4) fL Immature Gran % (Auto) 0.2 % Neut % (Auto) 68.4 % Lymph % (Auto) 20.8 % [place] % (Auto) 7.9 % Eos % (Auto) 2.3 % Baso % (Auto) 0.4 % Neut # (Auto) 8.86 H (1.4-6.5) K/uL Lymph # (Auto) 2.69 (1.2-3.4) K/uL [place] # (Auto) 1.02 H (0.11-0.59) K/uL Eos # (Auto) 0.30 (0-0.5) K/uL Baso # (Auto) 0.05 (0-0.2) K/uL Immature Gran # (Auto) 0.02 (0.00-0.02) K/uL ESR 26 (0-30) mm/hr PT 9.8 (9.0-12.0) Seconds INR 0.9 (0.9-1.1) APTT 22.1 (21.0-31.0) Seconds PTT Ratio 0.8 Sodium (136-145) mmol/L Potassium (3.5-5.1) mmol/L Chloride (98-107) mmol/L Carbon Dioxide (21-32) mmol/L Anion Gap (3-11) BUN (6-23) mg/dl Creatinine (0.6-1.2) mg/dl Est Cr Clr Drug Dosing ml/min Est GFR ( Amer) ml/min Est GFR (Non-Af Amer) ml/min BUN/Creatinine Ratio (10-20) Glucose (70-99(Fasting)) mg/dl POC Glucose (70-99) mg/dl Lactate (0.4-2.0) mmol/L Calcium (8.5-10.1) mg/dl Magnesium (1.7-2.4) mg/dl Total Bilirubin (0.2-1.0) mg/dl AST (13-39) U/L ALT (7-52) U/L Alkaline Phosphatase (34-104) U/L C-Reactive Protein (0-0.5) mg/dl Total Protein (6.0-8.3) gm/dl Albumin (3.4-5.0) gm/dl Globulin (2.5-4.0) gm/dl Albumin/Globulin Ratio (0.9-2) Procalcitonin (0-0.5) ng/ml Urine Color Urine Appearance (Clear) Urine pH (4.5-7.5) Ur Specific [place] (1.000-1.030) Urine Protein (Negative) Urine Glucose (UA) (Negative) Urine Ketones (Negative) Urine Blood (Negative) Urine Nitrite (Negative) Urine Bilirubin (Negative) Urine Urobilinogen (Negative) Ur Leukocyte Esterase (Negative) SARS-CoV-2, RNA, NAAT (NEGATIVE) 11/04/21 11/04/21 11/04/21 Range/Units 11:12 11:12 11:12 WBC (4.8-10.8) K/uL RBC (4.2-5.4) M/uL Hgb (12.0-16.0) g/dL Hct (37-47) % MCV (80-100) fL MCH (25-34) pg MCHC (32-36) g/dL RDW Std Deviation (36.4-46.3) fL RDW Coeff of Maria Del Carmen (11.5-14.5) % Plt Count (130-400) K/uL MPV (7.4-10.4) fL Immature Gran % (Auto) % Neut % (Auto) % Lymph % (Auto) % [place] % (Auto) % Eos % (Auto) % Baso % (Auto) % Neut # (Auto) (1.4-6.5) K/uL Lymph # (Auto) (1.2-3.4) K/uL [place] # (Auto) (0.11-0.59) K/uL Eos # (Auto) (0-0.5) K/uL Baso # (Auto) (0-0.2) K/uL Immature Gran # (Auto) (0.00-0.02) K/uL ESR (0-30) mm/hr PT (9.0-12.0) Seconds INR (0.9-1.1) APTT (21.0-31.0) Seconds PTT Ratio Sodium 132 L (136-145) mmol/L Potassium 4.1 (3.5-5.1) mmol/L Chloride 96 L (98-107) mmol/L Carbon Dioxide 27 (21-32) mmol/L Anion Gap 9 (3-11) BUN 15 (6-23) mg/dl Creatinine 0.58 L (0.6-1.2) mg/dl Est Cr Clr Drug Dosing 97.6 ml/min Est GFR ( Amer) 118.6 ml/min Est GFR (Non-Af Amer) 102.3 ml/min BUN/Creatinine Ratio 25.9 H (10-20) Glucose 455 H* (70-99(Fasting)) mg/dl POC Glucose (70-99) mg/dl Lactate 1.5 (0.4-2.0) mmol/L Calcium 9.8 (8.5-10.1) mg/dl Magnesium 1.7 (1.7-2.4) mg/dl Total Bilirubin 0.2 (0.2-1.0) mg/dl AST 8 L (13-39) U/L ALT 14 (7-52) U/L Alkaline Phosphatase 130 H (34-104) U/L C-Reactive Protein 0.81 H (0-0.5) mg/dl Total Protein 7.7 (6.0-8.3) gm/dl Albumin 4.6 (3.4-5.0) gm/dl Globulin 3.1 (2.5-4.0) gm/dl Albumin/Globulin Ratio 1.5 (0.9-2) Procalcitonin < 0.05 (0-0.5) ng/ml Urine Color Urine Appearance (Clear) Urine pH (4.5-7.5) Ur Specific [place] (1.000-1.030) Urine Protein (Negative) Urine Glucose (UA) (Negative) Urine Ketones (Negative) Urine Blood (Negative) Urine Nitrite (Negative) Urine Bilirubin (Negative) Urine Urobilinogen (Negative) Ur Leukocyte Esterase (Negative) SARS-CoV-2, RNA, NAAT (NEGATIVE) 11/04/21 11/04/21 11/04/21 Range/Units 11:18 12:14 12:48 WBC (4.8-10.8) K/uL RBC (4.2-5.4) M/uL Hgb (12.0-16.0) g/dL Hct (37-47) % MCV (80-100) fL MCH (25-34) pg MCHC (32-36) g/dL RDW Std Deviation (36.4-46.3) fL RDW Coeff of Maria Del Carmen (11.5-14.5) % Plt Count (130-400) K/uL MPV (7.4-10.4) fL Immature Gran % (Auto) % Neut % (Auto) % Lymph % (Auto) % [place] % (Auto) % Eos % (Auto) % Baso % (Auto) % Neut # (Auto) (1.4-6.5) K/uL Lymph # (Auto) (1.2-3.4) K/uL [place] # (Auto) (0.11-0.59) K/uL Eos # (Auto) (0-0.5) K/uL Baso # (Auto) (0-0.2) K/uL Immature Gran # (Auto) (0.00-0.02) K/uL ESR (0-30) mm/hr PT (9.0-12.0) Seconds INR (0.9-1.1) APTT (21.0-31.0) Seconds PTT Ratio Sodium (136-145) mmol/L Potassium (3.5-5.1) mmol/L Chloride (98-107) mmol/L Carbon Dioxide (21-32) mmol/L Anion Gap (3-11) BUN (6-23) mg/dl Creatinine (0.6-1.2) mg/dl Est Cr Clr Drug Dosing ml/min Est GFR ( Amer) ml/min Est GFR (Non-Af Amer) ml/min BUN/Creatinine Ratio (10-20) Glucose (70-99(Fasting)) mg/dl POC Glucose 374 H* (70-99) mg/dl Lactate (0.4-2.0) mmol/L Calcium (8.5-10.1) mg/dl Magnesium (1.7-2.4) mg/dl Total Bilirubin (0.2-1.0) mg/dl AST (13-39) U/L ALT (7-52) U/L Alkaline Phosphatase (34-104) U/L C-Reactive Protein (0-0.5) mg/dl Total Protein (6.0-8.3) gm/dl Albumin (3.4-5.0) gm/dl Globulin (2.5-4.0) gm/dl Albumin/Globulin Ratio (0.9-2) Procalcitonin (0-0.5) ng/ml Urine Color Yellow Urine Appearance Clear (Clear) Urine pH 6.5 (4.5-7.5) Ur Specific [place] 1.035 H (1.000-1.030) Urine Protein Negative (Negative) Urine Glucose (UA) 3+ H (Negative) Urine Ketones Negative (Negative) Urine Blood Negative (Negative) Urine Nitrite Negative (Negative) Urine Bilirubin Negative (Negative) Urine Urobilinogen Negative (Negative) Ur Leukocyte Esterase Negative (Negative) SARS-CoV-2, RNA, NAAT NEGATIVE (NEGATIVE) Administered Medications Aspirin (Aspirin 81 Mg Ectab) 81 mg PO BID RICKY Stop: 12/04/21 20:59 Last Admin: 11/04/21 20:18 Dose: 81 mg Documented by: [id number] Cyclobenzaprine HCl (Cyclobenzaprine Hcl 10 Mg Tab) 10 mg PO TID [facility] Stop: 12/04/21 15:48 Last Admin: 11/04/21 20:18 Dose: 10 mg Documented by: [id number] Admin: 11/04/21 16:39 Dose: 10 mg Documented by: [id number] Heparin Sodium (Porcine) (Heparin Sod 5,000 Unit/0.5 Ml Vial) 5,000 units SQ Q12 RICKY Stop: 12/04/21 20:59 Last Admin: 11/04/21 20:19 Dose: 5,000 units Documented by: [id number] Hydromorphone HCl (Hydromorphone Inj 0.5 Mg/0.5 Ml Syr) 0.5 mg IV Q6H PRN PRN Reason: Pain Stop: 11/18/21 17:44 Last Admin: 11/04/21 18:26 Dose: 0.5 mg Documented by: [id number] Cefepime HCl 2,000 mg/ Syringe 20 mls @ 5 mls/min IV Q8H [facility] Stop: 12/16/21 19:59 Last Admin: 11/04/21 20:17 Dose: 5 mls/min Documented by: [id number] Insulin Aspart (Insulin Aspart Per Unit) 0 units SC ACHS RICKY Stop: 12/04/21 16:29 Last Admin: 11/04/21 19:19 Dose: 9 units Documented by: [id number] Cosigned by: [id number] Lorazepam (Lorazepam 1 Mg Tab) 1 mg PO TID PRN PRN Reason: Anxiety Stop: 12/04/21 16:34 Last Admin: 11/04/21 20:33 Dose: 1 mg Documented by: [id number] Nortriptyline HCl (Nortriptyline Hcl 25 Mg Cap) 100 mg PO [facility] Stop: 12/04/21 20:59 Last Admin: 11/04/21 20:18 Dose: 100 mg Documented by: [id number] Ondansetron HCl (Ondansetron Inj 2 Mg/Ml 2 Ml Vial) 4 mg IV Q6H PRN PRN Reason: Nausea Stop: 12/04/21 15:48 Last Admin: 11/04/21 17:10 Dose: 4 mg Documented by: [id number] Oxycodone/Acetaminophen (Oxycodone/Acetaminophen 5mg/325mg Tab) 2 tab PO Q4H PRN PRN Reason: moderate pain (4,5,6) Stop: 11/18/21 15:48 Last Admin: 11/04/21 20:18 Dose: 2 tab Documented by: [id number] Ropinirole HCl (Ropinirole Hcl 2 Mg Tablet) 4 mg PO [facility] Stop: 12/04/21 20:59 Last Admin: 11/04/21 20:17 Dose: 4 mg Documented by: [id number] Discontinued Medications Fentanyl Citrate (Fentanyl Citrate 100 Mcg/2 Ml Vial) 50 mcg IV NOW STA Stop: 11/04/21 11:01 Last Admin: 11/04/21 11:41 Dose: 50 mcg Documented by: [id number] Hydromorphone HCl (Hydromorphone Inj 0.5 Mg/0.5 Ml Syr) 0.5 mg IV NOW STA Stop: 11/04/21 12:42 Last Admin: 11/04/21 12:46 Dose: 0.5 mg Documented by: [id number] Vancomycin HCl 1,750 mg/ (Sodium Chloride) 535 mls @ 200 mls/hr IV NOW ONE Stop: 11/04/21 13:37 Last Infusion: 11/04/21 16:07 Dose: 0 mls/hr Documented by: [id number] Admin: 11/04/21 11:41 Dose: 100 mls/hr Documented by: [id number] Sodium Chloride (Nss 1000ml) 1,000 mls @ 999 mls/hr IV .Q1H1M ONE Stop: 11/04/21 11:59 Last Infusion: 11/04/21 13:08 Dose: 0 mls/hr Documented by: [id number] Admin: 11/04/21 11:41 Dose: 999 mls/hr Documented by: [id number] Acetaminophen (Ofirmev) 1,000 mg in 100 mls @ 400 mls/hr IV NOW STA Stop: 11/04/21 11:13 Last Infusion: 11/04/21 11:36 Dose: 0 mls/hr Documented by: [id number] Admin: 11/04/21 11:21 Dose: 400 mls/hr Documented by: [id number] Cefepime HCl (Maxipime) 2,000 mg in 20 mls @ 5 mls/min IV NOW STA; Protocol Stop: 11/04/21 11:06 Last Admin: 11/04/21 11:42 Dose: 5 mls/min Documented by: [id number] Cefepime HCl 2,000 mg/ Syringe 20 mls @ 5 mls/min IV Q8 STA; Protocol Stop: 11/04/21 13:33 Last Admin: 11/04/21 16:19 Dose: Not Given Documented by: [id number] Oxycodone/Acetaminophen (Oxycodone/Acetaminophen 5mg/325mg Tab) 1 tab PO Q4H PRN PRN Reason: moderate pain (4,5,6) Stop: 11/18/21 15:48 Last Admin: 11/04/21 16:39 Dose: 1 tab Documented by: [id number] Imaging Data Radiologist's Impression: Foot X-Ray 11/04/21 10:59 XR foot RT min 3V routine CLINICAL HISTORY: pain, h/o osteo COMPARISON: Right foot radiographs September 26, 2021 and MRI of the right forefoot September 26, 2021. FINDINGS: Note is again made of postoperative findings consistent with amputation of the first and second digits at the level of the metatarsal necks. Bony erosion of the remaining portions of the first and second metatarsals has mildly increased since exam of September 26, 2021. Interval development of extensive periosteal reaction is now noted. There are soft tissue swelling. No additional sites of suspected osteomyelitis within the right foot are present. There's no acute fracture. IMPRESSION: Status post right first and second digit amputations, as described above. Mild interval bony erosion of the remaining portions of the first and second metatarsals with development of periosteal reaction. These findings are highly suggestive of osteomyelitis of the right first and second metatarsals. ACT 112: Negative or not required by law. Electronically signed by: Wilver Powell M.D. 11/04/2021 11:54 AM Tibia/Fibula X-Ray 11/04/21 11:05 XR tibia fibula RT 2V CLINICAL HISTORY: Pain radiating into the right ankle and lower leg.. Patient reports foot infection for one year. COMPARISON STUDY: No previous studies for comparison. TECHNIQUE: AP and lateral right lower leg views FINDINGS: Bones: There is no evidence for an acute fracture or dislocation. There is no lytic or blastic lesion. Joints: The joint spaces are maintained. The bones are in anatomic alignment. Soft tissues: There is no focal soft tissue abnormality. There is no radiopaque foreign body. IMPRESSION: 1. No acute osseous pathology. ACT 112: Negative or not required by law. Electronically signed by: Jaylon Connell M.D. 11/04/2021 11:41 AM Discharge Plan Visit Data Chief Complaint: Infection, Wound Stated Complaint: HAD SURGERY, INCISION IS INFECTED ED Provider: Simba Del Real Discharge Problem: Osteomyelitis, Leukocytosis, Hyperglycemia due to type 2 diabetes mellitus Patient Disposition: Admitted As Inpatient Discharge Instructions Interventions: ED Discharge Assessment Last Done: 11/04/21 15:05 Discharge Problem: Osteomyelitis Qualifiers: Osteomyelitis type: unspecified type Osteomyelitis location: foot Laterality: right Qualified Code(s): M86.9 - Osteomyelitis, unspecified Leukocytosis Qualifiers: Leukocytosis type: unspecified Qualified Code(s): D72.829 - Elevated white blood cell count, unspecified Hyperglycemia due to type 2 diabetes mellitus Qualifiers: 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
[2021-11-04] MEDS ORDERED: HYDROmorphone INJ 0.5 MG/0.5 ML SYR IV STA (12:41)
[2021-11-04] MEDS ORDERED: CEFEPIME 2,000 MG in SYRINGE 0 ML IV STA (13:30)
--- NOTE | 2021-11-04 13:31 | Orthopedic Consultation ---
Date of Consultation November 04, 2021 Assessment & Plan (1) Wound dehiscence, surgical: I discussed the findings with Dr. Del Real. At this time, it does not appear the patient would require surgical intervention. We discussed an updated ankle MRI to rule out abscess and rule out any surrounding osteomyelitis at the posterior medial aspect of the ankle. It seems as though the plan will be to have medicine evaluate the patient for possible admission and IV antibiotics. The patient may benefit from wound care nursing. If the patient fails to progress, we certainly may evaluate the patient for possible surgical intervention. (2) Cellulitis of right foot: History of Present Illness Reason for Consultation: Right hindfoot wound Requesting Physician: Dr. Del Real History of Present Illness This is a patient who is well-known to [facility] for previous right foot infections. She has previously undergone a great toe and second toe amputation. She also developed an abscess at the posterior medial aspect of her ankle which has been washed out a couple of times. She currently has a nonhealing ulcer at the medial aspect of the hindfoot along the flexor tendons. She was seen in the office approximately 1 week ago and had been doing well. After her PICC line was removed earlier this week, she started having increased pain at the posterior medial aspect wound. She came to the ER today for evaluation of the increased pain. We were asked to evaluate the patient since the wound was seen not so long ago. Allergies Allergy/AdvReac Type Severity Reaction Status Date / Time morphine Allergy Severe blisters Verified 11/04/21 11:13 in mouth Sulfa (Sulfonamide Allergy Severe rash/swelli Verified 11/04/21 11:13 Antibiotics) ng vancomycin Allergy Intermediate YULIYA Verified 11/04/21 11:14 SYNDROME---CAN TAKE IF VERY SLOW DRIP. Home Medications Medication Instructions Recorded Confirmed Type cyclobenzaprine 10 mg tablet 10 mg PO TID 10/19/20 11/04/21 History nortriptyline 50 mg capsule 100 mg PO HS 10/19/20 11/04/21 History (Pamelor) ropinirole 2 mg tablet 4 mg PO HS 10/19/20 11/04/21 History zolpidem 10 mg tablet (Ambien) 10 mg PO HS 10/19/20 11/04/21 History lancets (OneTouch UltraSoft #100 ea 11/12/20 07/14/21 History Lancets) albuterol sulfate 90 mcg/actuation 1 puff INHALATION QID PRN 03/05/21 11/04/21 History aerosol inhaler (Proventil HFA) metoprolol succinate 50 mg 50 mg PO QAM 03/05/21 11/04/21 History tablet,extended release 24 hr (Toprol XL) insulin glargine 100 unit/mL (3 15 unit SUBCUT HS #1 ml 08/18/21 11/04/21 Rx mL) subcutaneous pen (Basaglar KwikPen U-100 Insulin) insulin lispro 100 unit/mL 3 unit SUBCUT TIDM #1 ml 08/18/21 11/04/21 Rx subcutaneous pen (Humalog KwikPen (U-100) Insulin) metformin 500 mg tablet 500 mg PO BID #60 tab 08/18/21 11/04/21 Rx aspirin 81 mg tablet,delayed 81 mg PO BID #60 tab 10/04/21 11/04/21 Rx release (Aspirin Low Dose) lisinopril 10 mg tablet 10 mg PO QAM #30 tab 10/04/21 11/04/21 Rx oxycodone-acetaminophen 5 mg-325 1 - 2 tab PO Q4H PRN #36 tab 10/04/21 11/04/21 Rx mg tablet (Percocet) ciprofloxacin HCl 500 mg tablet 500 mg PO Q12H 11/04/21 11/04/21 History lorazepam 1 mg tablet (Ativan) 1 mg PO TID PRN 11/04/21 11/04/21 History Patient History Medical History 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 No issues per anesthesia postop progress note. Anemia Cellulitis Chronic back pain Depression Diabetic peripheral neuropathy DM2 (diabetes mellitus, type 2) IDDM, A1c 07/2021-11% Gastritis GIB (gastrointestinal bleeding) History of amputation of great toe Hyperlipidemia Insulin dependent diabetes mellitus Nonobstructive atherosclerosis of coronary artery Numbness of lower extremity Peripheral neuropathy Right second toe ulcer Seizures Surgical History History of cardiac cath done at [facility]; 09/22/19; LM - mild luminal irregularities. LAD - mid 20-30%, distal with myocardial bridge & 30% stenosis. L Cx - mild luminal irregularities. RCA - proximal <30% stenosis; mid/distal vessel mild plaques. PDA - mild luminal irregularities. History of esophagogastroduodenoscopy (EGD) Family History Mother , age 63 Myocardial infarction Father , age 68 or 69 Myocardial infarction Brother S/P CABG (coronary artery bypass graft) Sister Myocardial infarction x 3; she is 57yo Social History Smoking Status: Current every day smoker Tobacco Type: Cigarettes packs per day: 1; Years Smoked: 20; Cigarettes Per Day: 1 PPD for 20 years; Second Hand Exposure: No; Hx Alcohol Use: No Hx Substance Use: Yes Last Used Substance: Unknown Last Used Substance Other:: couple weeks ago Substance Use Type Other:: patient has a medical [employer] card. has not used in at least 2 weeks. 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 How many Children do You have: 2 other: raising a grandchild as well; lives in [facility] Safe at Home: Yes Assistive Devices: None Physical Exam Constitutional: well developed, well nourished and + acute distress (Patient is crying from pain.) ENMT: external ear and nose normal, oropharynx normal Neck: trachea midline Musculoskeletal: Ankle: + skin erythema (Minimal erythema around the right posterior medial aspect nonhealing ulcer), + surgical incision (Nonhealing wound at the posterior medial aspect of the ankle.) and + joint line tenderness (ankle) (Posterior medial ankle wound) Skin: + ulcer (Posterior medial right ankle. No increase in size. Minimal erythema. ) and + wound (Central sloughing at the posterior medial aspect wound) Psychiatric: A+Ox3, euthymic affect Speech: normal rate/rhythm/volume of speech Results & Data ([facility]) Vital Signs (Past 12 Hours) Vital Signs Temp Pulse Pulse Resp BP BP Pulse Ox 11/04/21 12:10 98 H 20 172/76 H 98 11/04/21 11:20 18 100 11/04/21 10:26 36.8 C 105 H 16 183/87 H 97
--- NOTE | 2021-11-04 13:41 | Electrocardiogram Report ---
Test Reason : Blood Pressure : / mmHG Vent. Rate : 099 BPM Atrial Rate : 099 BPM P-R Int : 166 ms QRS Dur : 080 ms QT Int : 328 ms P-R-T Axes : 072 071 091 degrees QTc Int : 420 ms Normal sinus rhythm Confirmed by Harvinder Guerra ([id number]) on 11/04/2021 1:41:40 PM Referred By: REFERRED SELF Confirmed By:Scot Guerra
--- NOTE | 2021-11-04 14:00 | History & Physical Report ---
Date of Service November 04, 2021 Assessment & Plan (1) Osteomyelitis: Plan: As per HPI - chronic infection now with returning of symptoms following discontinuation of IV antibiotics - Interestingly enough the patient's WBC and NLR as well as other inflammatory markers are decreasing - Orthopaedics consulted - MRI of the foot and ankle with and without contrast - Will continue Cefepime and Vancomycin while cultures pending - Unfortunately wound culture was sent after she had received her EMD abx (2) Diabetes mellitus type 2, uncontrolled: Plan: Poorly controlled - admission BG 300 - Obviously this is not assisting with wound healing - Continue basal bolus insulin- CF 20, Carb ratio 1:15 - Goal <180 (3) Hyperlipidemia: Plan: Not on statin lipids elevated on check on 10/20 - consider initiating statin therapy for overall risk reduction (4) PAD (peripheral artery disease): Plan: Continue asa, controll BP, glucose control- (5) Wound dehiscence, surgical: Plan: Wound care consult placed- continue with aquacell AG daily (6) HTN (hypertension): Plan: Continue ODELL- follow renal function - Continue metoprolol (7) Diabetic peripheral neuropathy: Plan: Continue her ropinerole for restless legs, nortriptyline (8) Insomnia: Plan: Continue her Ambien- follow extermination inspector use with PCP History of Present Illness Primary Care Provider: Vince Vernon, DO 56 YOF with past medical history of: poorly controlled type 2 diabetes mellitus, peripheral artery disease, atypical chest pain, and osteomyelitis of the right foot with surgical intervention 08/2021 as noted below who presents with worsening pain in her foot and ankle with acute osteomyelitis that required resection she had medial right ankle debrided as well with metatarsal head resection and second metatarsal resection 09/10/21- she was admitted in 10/04 for worsening of her symptoms with foot pain and redness- she underwent right foot abscess drainage and debridement as well as right medial ankle irrigation and debridement, and tenosynovectomy. She then had a PICC line placed underwent course of antibiotics for Enterobacter cloacae and Klebsiella oxytoca and was discharged on 10/04/21 with IV antibiotics that consisted of 2 weeks of Vancomycin and Cefepime for 6 weeks. This was stopped on Sunday with discontinuation of her PICC line and transition to Ciprofloxacin- notes are unclear who was managing this as outpatient. She came in to the [facility] today for complaints of worsening of her pain that is again located in the sole of her midfoot, with pain at her first and second metatarsal site, with radiation to the Achilles and mid way up to her calf, but not extending into her calf. There is no evidence of cellulitis, and the drainage from the wound reported by the patient has increased to serous-sanguinous without kailash purulence. She has also been afebrile. Blood cultures were sent by [facility] with initiation of Cefepime and Vancomycin, wound culture of the medial aspect of her ankle will now be obtained. Her WBC are stable with a NLR of 4:1 as well as her PCT <0.05 and CRP downtrending to 0.81 from 0.97. Will obtain MRI of her foot, consult orthopaedics, continue antibiotics in form of Cefepime and Vancomycin while cultures are pending. She does have History of MRSA in Aug. She has also had vascular evaluation done in August with lower extremity artery 09/03: No hemodynamically significant stenosis. Right NATHAN normal, left NATHAN moderately decreased. Currently does not appear to be overly infected or septic, will need glucose control. COVID test on admission is: NEGATIVE Allergies Allergy/AdvReac Type Severity Reaction Status Date / Time morphine Allergy Severe blisters Verified 11/04/21 11:13 in mouth Sulfa (Sulfonamide Allergy Severe rash/swelli Verified 11/04/21 11:13 Antibiotics) ng vancomycin Allergy Intermediate YULIYA Verified 11/04/21 11:14 SYNDROME---CAN TAKE IF VERY SLOW DRIP. Home Medications Medication Instructions Recorded Confirmed Type cyclobenzaprine 10 mg tablet 10 mg PO TID 10/19/20 11/04/21 History nortriptyline 50 mg capsule 100 mg PO HS 10/19/20 11/04/21 History (Pamelor) ropinirole 2 mg tablet 4 mg PO HS 10/19/20 11/04/21 History zolpidem 10 mg tablet (Ambien) 10 mg PO HS 10/19/20 11/04/21 History lancets (OneTouch UltraSoft #100 ea 11/12/20 07/14/21 History Lancets) albuterol sulfate 90 mcg/actuation 1 puff INHALATION QID PRN 03/05/21 11/04/21 History aerosol inhaler (Proventil HFA) metoprolol succinate 50 mg 50 mg PO QAM 03/05/21 11/04/21 History tablet,extended release 24 hr (Toprol XL) insulin glargine 100 unit/mL (3 15 unit SUBCUT HS #1 ml 08/18/21 11/04/21 Rx mL) subcutaneous pen (Basaglar KwikPen U-100 Insulin) insulin lispro 100 unit/mL 3 unit SUBCUT TIDM #1 ml 08/18/21 11/04/21 Rx subcutaneous pen (Humalog KwikPen (U-100) Insulin) metformin 500 mg tablet 500 mg PO BID #60 tab 08/18/21 11/04/21 Rx aspirin 81 mg tablet,delayed 81 mg PO BID #60 tab 10/04/21 11/04/21 Rx release (Aspirin Low Dose) lisinopril 10 mg tablet 10 mg PO QAM #30 tab 10/04/21 11/04/21 Rx oxycodone-acetaminophen 5 mg-325 1 - 2 tab PO Q4H PRN #36 tab 10/04/21 11/04/21 Rx mg tablet (Percocet) ciprofloxacin HCl 500 mg tablet 500 mg PO Q12H 11/04/21 11/04/21 History lorazepam 1 mg tablet (Ativan) 1 mg PO TID PRN 11/04/21 11/04/21 History Past Med/Surg History Medical History 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 No issues per anesthesia postop progress note. Anemia Cellulitis Chronic back pain Depression Diabetic peripheral neuropathy DM2 (diabetes mellitus, type 2) IDDM, A1c 07/2021-11% Gastritis GIB (gastrointestinal bleeding) History of amputation of great toe Hyperlipidemia Insulin dependent diabetes mellitus Nonobstructive atherosclerosis of coronary artery Numbness of lower extremity Peripheral neuropathy Right second toe ulcer Seizures Surgical History History of cardiac cath done at [facility]; 09/22/19; LM - mild luminal irregularities. LAD - mid 20-30%, distal with myocardial bridge & 30% stenosis. L Cx - mild luminal irregularities. RCA - proximal <30% stenosis; mid/distal vessel mild plaques. PDA - mild luminal irregularities. History of esophagogastroduodenoscopy (EGD) Family History Mother , age 63 Myocardial infarction Father , age 68 or 69 Myocardial infarction Brother S/P CABG (coronary artery bypass graft) Sister Myocardial infarction x 3; she is 57yo Social History Smoking Status: Current every day smoker Tobacco Type: Cigarettes packs per day: 1; Years Smoked: 20; Cigarettes Per Day: 1 PPD for 20 years; Second Hand Exposure: No; Hx Alcohol Use: No Hx Substance Use: Yes Last Used Substance: Unknown Last Used Substance Other:: couple weeks ago Substance Use Type Other:: patient has a medical [employer] card. has not used in at least 2 weeks. 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 How many Children do You have: 2 other: raising a grandchild as well; lives in [facility] Safe at Home: Yes Assistive Devices: None Review of Systems Review of Systems: REVIEW OF SYSTEMS: Constitutional: No fever, sweats or chills Eyes: No diplopia, no worsening or blurred vision ENT: normal hearing, no trouble swallowing Respiratory: No cough, sputum, dyspnea at rest or on exertion Cardiovascular: No chest pain, tightness or palpitations Abdomen: No pain, nausea, vomiting, diarrhea or constipation Musculoskeletal: (+) foot and ankle joint pain, calf pain, No swelling and no errythema Neurologic: No weakness, numbness/tingling, or balance problems Psychiatric: No anxiety or depression Skin: No rash or itch Physical Exam Physical Exam: PHYSICAL EXAM: General: awake, alert, no apparent distress Head: Normocephalic, atraumatic ENT: PERRL, EOMI, no pharyngeal exudate, mucous membranes moist Neuro: AAO x 3, speech clear and appropriate, strength intact bilaterally 5/5, sensation intact and equal all extremities and dermatomes, no pronator drift Chest: equal rise and fall of the chest, no accessory muscle use, no heaves or thrills, clear to auscultation, on room air Cardiac: Regular rate and rhythm, telemetry reviewed, skin warm dry, cap refill <3 seconds, peripheral pulses +2 no JVD, no murmur, no JVD, no edema GI: NABS x 4 quadrants, soft, nontender to palpation, no rebound, guarding or tenderness : Spontaneously voiding, no pain, no CVA tenderness, MSK: Right foot pain, midsole foot pain, first metatarsal and second metatarsal pain, achilies tender- all with palpation. full range of motion without pain Psych: Normal mood and affect Skin: no rash or erythema- old PICC line site left arm without redness or edema Results & Data Results & Data ([facility]) Vital Signs (Past 12 Hours) Vital Signs Temp Pulse Pulse Resp BP BP Pulse Ox 11/04/21 12:10 98 H 20 172/76 H 98 11/04/21 11:20 18 100 11/04/21 10:26 36.8 C 105 H 16 183/87 H 97 Laboratory Results Abnormal Labs 11/04/21 11/04/21 11/04/21 11:12 11:12 12:14 WBC 12.94 H MCV 78.8 L Neut # (Auto) 8.86 H [place] # (Auto) 1.02 H Sodium 132 L Chloride 96 L Creatinine 0.58 L BUN/Creatinine Ratio 25.9 H Glucose 455 H* POC Glucose AST 8 L Alkaline Phosphatase 130 H C-Reactive Protein 0.81 H Ur Specific [place] 1.035 H Urine Glucose (UA) 3+ H 11/04/21 12:48 WBC MCV Neut # (Auto) [place] # (Auto) Sodium Chloride Creatinine BUN/Creatinine Ratio Glucose POC Glucose 374 H* AST Alkaline Phosphatase C-Reactive Protein Ur Specific [place] Urine Glucose (UA) Diagnostic Findings Foot X-Ray 11/04/21 10:59 XR foot RT min 3V routine CLINICAL HISTORY: pain, h/o osteo COMPARISON: Right foot radiographs September 26, 2021 and MRI of the right forefoot September 26, 2021. FINDINGS: Note is again made of postoperative findings consistent with amputation of the first and second digits at the level of the metatarsal necks. Bony erosion of the remaining portions of the first and second metatarsals has mildly increased since exam of September 26, 2021. Interval development of extensive periosteal reaction is now noted. There are soft tissue swelling. No additional sites of suspected osteomyelitis within the right foot are present. There's no acute fracture. IMPRESSION: Status post right first and second digit amputations, as described above. Mild interval bony erosion of the remaining portions of the first and second metatarsals with development of periosteal reaction. These findings are highly suggestive of osteomyelitis of the right first and second metatarsals. ACT 112: Negative or not required by law. Electronically signed by: Wilver Powell M.D. 11/04/2021 11:54 AM Tibia/Fibula X-Ray 11/04/21 11:05 XR tibia fibula RT 2V CLINICAL HISTORY: Pain radiating into the right ankle and lower leg.. Patient reports foot infection for one year. COMPARISON STUDY: No previous studies for comparison. TECHNIQUE: AP and lateral right lower leg views FINDINGS: Bones: There is no evidence for an acute fracture or dislocation. There is no lytic or blastic lesion. Joints: The joint spaces are maintained. The bones are in anatomic alignment. Soft tissues: There is no focal soft tissue abnormality. There is no radiopaque foreign body. IMPRESSION: 1. No acute osseous pathology. ACT 112: Negative or not required by law. Electronically signed by: Jaylon Connell M.D. 11/04/2021 11:41 AM Medications Administered Discontinued Medications Fentanyl Citrate (Fentanyl Citrate 100 Mcg/2 Ml Vial) 50 mcg IV NOW STA Stop: 11/04/21 11:01 Last Admin: 11/04/21 11:41 Dose: 50 mcg Documented by: [id number] Hydromorphone HCl (Hydromorphone Inj 0.5 Mg/0.5 Ml Syr) 0.5 mg IV NOW STA Stop: 11/04/21 12:42 Last Admin: 11/04/21 12:46 Dose: 0.5 mg Documented by: [id number] Vancomycin HCl 1,750 mg/ (Sodium Chloride) 535 mls @ 200 mls/hr IV NOW ONE Stop: 11/04/21 13:37 Last Admin: 11/04/21 11:41 Dose: 100 mls/hr Documented by: [id number] Sodium Chloride (Nss 1000ml) 1,000 mls @ 999 mls/hr IV .Q1H1M ONE Stop: 11/04/21 11:59 Last Infusion: 11/04/21 13:08 Dose: 0 mls/hr Documented by: [id number] Admin: 11/04/21 11:41 Dose: 999 mls/hr Documented by: [id number] Acetaminophen (Ofirmev) 1,000 mg in 100 mls @ 400 mls/hr IV NOW STA Stop: 11/04/21 11:13 Last Infusion: 11/04/21 11:36 Dose: 0 mls/hr Documented by: [id number] Admin: 11/04/21 11:21 Dose: 400 mls/hr Documented by: [id number] Cefepime HCl (Maxipime) 2,000 mg in 20 mls @ 5 mls/min IV NOW STA; Protocol Stop: 11/04/21 11:06 Last Admin: 11/04/21 11:42 Dose: 5 mls/min Documented by: [id number] ECG Additional Comments: Vent. 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 She has been having low-grade fevers at home she says to 99 and chills. No diarrhea. She is having severe pain and is requesting IV pain medicine. History and ROS reviewed as above Vitals reviewed Gen: AAOx3, NAD, tearful HEENT: Anicteric sclerae, EOMI CV: RRR no mgr nl S1S2 Pulm: CTAB no wcr Abd: +BS soft NT ND no masses or hernias Ext: No edema, 2+ DP pulse on the right, right medial ankle with 3 x 2 cm open wound with exposed tendon, scant purulent drainage, very minimal surrounding erythema, positive tenderness to palpation around the wound and medial foot, otherwise previous amputation site of great toe and second toe wound is well- healed, no erythema Skin: No rashes, warm/dry Neuro: Full strength throughout Labs and rads reviewed 56-year-old female with history as above, here with worsening pain and possibly early recurrent infection with osteomyelitis of the left medial ankle wound and first and second residual metatarsals. Admit for restart of IV antibiotics Wound culture Orthopedics consult appreciated Check MRI of the ankle Pain control-add on IV pain medicine PG Care Time/CCT Total # of Minutes Spent Total Time Spent with Patient: Total time spent is greater than 50% in coordination of care (as documented) at patient's floor/unit and/or counseling patient: Coding Level of Care Code 14065 Initial Inpt Care Lvl 3 Diagnoses Osteomyelitis M86.9 Hyperlipidemia E78.5 Hyperlipidemia type: unspecified Diabetes mellitus type 2, uncontrolled E11.65 PAD (peripheral artery disease) I73.9 Wound dehiscence, surgical T81.31XA HTN (hypertension) I10 Diabetic peripheral neuropathy E11.42 Insomnia G47.00 (1) Hyperlipidemia Hyperlipidemia type: unspecified Qualified Code(s): E78.5 - Hyperlipidemia, unspecified
[2021-11-04] MEDS ORDERED: ALBUTEROL HFA 8 GM INHALER INH PRN (15:49)
[2021-11-04] MEDS ORDERED: GLUCOSE 40% GEL 15 GM TUBE PO PRN (15:49)
[2021-11-04] MEDS ORDERED: GLUCOSE 10 TABS/TUBE PO PRN (15:49)
[2021-11-04] MEDS ORDERED: CARBOHYDRATES FOR HYPOGLYCEMIA PO PRN (15:49)
[2021-11-04] MEDS ORDERED: GLUCAGON FOR INJ 1 MG VIAL SQ PRN (15:49)
[2021-11-04] MEDS ORDERED: ACETAMINOPHEN 325 MG TAB PO PRN ×2 (15:49→17:07)
[2021-11-04] MEDS ORDERED: oxyCODONE/ACETAMINOPHEN 5mg/325mg TAB PO PRN (15:49)
[2021-11-04] MEDS ORDERED: POLYETHYLENE (MIRALAX) 17 GM PACK PO PRN (15:49)
[2021-11-04] MEDS ORDERED: DEXTROSE 50% 50 ML SYRINGE IV PRN (15:49)
[2021-11-04] MEDS: CYCLOBENZAPRINE HCL 10 MG TAB PO SCH ×2 (16:39→20:18)
[2021-11-04] MEDS: ONDANSETRON INJ 2 MG/ML 2 ML VIAL IV PRN (17:10)
[2021-11-04] MEDS: HYDROmorphone INJ 0.5 MG/0.5 ML SYR IV PRN (18:26)
[2021-11-04] MEDS: INSULIN ASPART PER UNIT SC SCH ×2 (19:19→22:24)
[2021-11-04] MEDS: rOPINIRole HCL 2 MG TABLET PO SCH (20:17)
[2021-11-04] MEDS: CEFEPIME 2,000 MG in SYRINGE 0 ML IV SCH (20:17)
[2021-11-04] MEDS: NORTRIPTYLINE HCL 25 MG CAP PO SCH (20:18)
[2021-11-04] MEDS: oxyCODONE/ACETAMINOPHEN 5mg/325mg TAB PO PRN (20:18)
[2021-11-04] MEDS: ASPIRIN 81 MG ECTAB PO SCH (20:18)
[2021-11-04] MEDS: HEPARIN SOD 5,000 UNIT/0.5 ML VIAL SQ SCH (20:19)
[2021-11-04] MEDS: LORazepam 1 MG TAB PO PRN (20:33)
[2021-11-04] MEDS: INSULIN GLARGINE SOLOSTAR 100 UNITS/ML 3 ML PEN SQ SCH (22:24)
[2021-11-04] MEDS: ZOLPIDEM TARTRATE 10 MG TAB PO PRN (22:25)
[2021-11-04] MEDS: VANCOMYCIN HCL 1,250 MG in SODIUM CHLORIDE 0.9% 250 ML IV SCH (22:26)
[2021-11-05] MEDS: HYDROmorphone INJ 0.5 MG/0.5 ML SYR IV PRN ×4 (00:54→19:46)
[2021-11-05] MEDS: CEFEPIME 2,000 MG in SYRINGE 0 ML IV SCH ×3 (03:35→19:45)
[2021-11-05] MEDS: ONDANSETRON INJ 2 MG/ML 2 ML VIAL IV PRN ×3 (03:35→18:54)
[2021-11-05] MEDS: oxyCODONE/ACETAMINOPHEN 5mg/325mg TAB PO PRN ×4 (03:36→21:15)
[2021-11-05 07:06] LABS: Basophils # (auto) 0.03 K/uL (0-0.2); Basophils % (auto) 0.4 %; Eosinophils # (auto) 0.38 K/uL (0-0.5); Eosinophils % (auto) 4.9 %; Hematocrit (blood only) 35.6 % (37-47); Hemoglobin 11.2 g/dL (12.0-16.0); Immature Granulocytes # (auto) 0.01 K/uL (0.00-0.02); Immature Granulocytes % (auto) 0.1 %; Lymphocytes # (auto) 1.75 K/uL (1.2-3.4); Lymphocytes % (auto) 22.6 %; Mean Corpuscular Hemoglobin 24.9 pg (25-34); Mean Corpuscular Hgb Conc 31.5 g/dL (32-36); Mean Corpuscular Volume 79.3 fL (80-100); Mean Platelet Volume 10.1 fL (7.4-10.4); Monocytes # (auto) 0.81 K/uL (0.11-0.59); Monocytes % (auto) 10.5 %; Neutrophils # (auto) 4.76 K/uL (1.4-6.5); Neutrophils % (auto) 61.5 %; Platelet Count 290 K/uL (130-400); RDW Coefficient of Variation 14.5 % (11.5-14.5); RDW Standard Deviation 42.4 fL (36.4-46.3); Red Blood Count 4.49 M/uL (4.2-5.4); White Blood Count 7.74 K/uL (4.8-10.8)
[2021-11-05 07:31] LABS: BUN Creatinine Ratio 26.7 (10-20); C Reactive Protein 0.68 mg/dl (0-0.5); Calcium 8.5 mg/dl (8.5-10.1); Creatinine Clr Calc Pharmacy 120.5 ml/min; Est GFR (African American) 128.9 ml/min; Est GFR (Non-African American) 111.2 ml/min; Magnesium 1.6 mg/dl (1.7-2.4); Potassium 4.3 mmol/L (3.5-5.1)
[2021-11-05] MEDS ORDERED: VANCOMYCIN HCL 1 MG in DEXTROSE 5% 100 ML IV SCH (08:00)
--- NOTE | 2021-11-05 08:10 | Pharmacy Report ---
Pharmacy Vanc AUC Short Note - Date of Service November 05, 2021 - Assessment & Plan Assessment 56 year old F receiving Vancomycin/Cefepime for treatment of osteomyelitis. Pertinent microbiologic data includes: HX of MRSA. Day # 2 of antimicrobial therapy. * Hx of right foot osteomyelitis with surgical intervention 08/2021. Had PICC line placed and discharged on 2 weeks of Vancomycin and 6 weeks of Cefepime which ended on 10/31/21 and transitioned to Cipro. * Presents to ER with complaints of worsening pain located in sole of midfoot with pain at 1st and 2nd metatarsal site with radiation to the Achilles and midway up calf. * Wound cultures obtained * Foot X-ray highly suggestive of right 1st and 2nd metatarsals osteomyelitis. Plan Vancomycin * AUC/CELSO is the preferred PK/PD target for vancomycin * AUC guided dosing is effective and associated with decreased risk of nephrotoxicity compared to traditional trough targets * Predicted trough level of 13.1 mcg/mL is predicted to achieve target AUC/CELSO of 400-600 mg/L.hr and may be associated with a 8 % risk of nephrotoxicity * Loading dose of 1750mg x1 then will begin 1250 mg IV every 12 hours. * Trough level ordered for: 11/06/21 @ 0930 Pharmacy will continue to follow and will adjust dose/frequency as necessary. Thank you.
[2021-11-05] MEDS: INSULIN ASPART PER UNIT SC SCH ×4 (09:05→20:58)
[2021-11-05] MEDS: CYCLOBENZAPRINE HCL 10 MG TAB PO SCH ×3 (09:09→19:47)
[2021-11-05] MEDS: METOPROLOL SUCC 50MG EXT REL TAB PO SCH (09:09)
[2021-11-05] MEDS: lisinopril 10 MG TAB PO SCH (09:09)
[2021-11-05] MEDS: ASPIRIN 81 MG ECTAB PO SCH ×2 (09:09→19:47)
[2021-11-05] MEDS: HEPARIN SOD 5,000 UNIT/0.5 ML VIAL SQ SCH ×2 (09:11→19:46)
[2021-11-05] MEDS: LORazepam 1 MG TAB PO PRN (09:18)
[2021-11-05] MEDS: VANCOMYCIN HCL 1,250 MG in SODIUM CHLORIDE 0.9% 250 ML IV SCH ×2 (09:19→20:59)
[2021-11-05] MEDS: MAGNESIUM SULFATE / D5W 1 GM/100 ML BAG IV SCH ×2 (10:32→12:24)
--- NOTE | 2021-11-05 11:52 | Orthopedic Progress Note ---
Date of Service November 05, 2021 Assessment & Plan (1) Wound dehiscence, surgical: Plan: The dressing was changed to the posterior medial aspect of the right ankle. Improved erythema and no drainage. There is no obvious fluid collection around the nonhealing wound or proximal/distal to the wound. I will have Dr. Montaño evaluate the wound later today. At this time, it is not appear to need surgical intervention. Continue IV antibiotics. Patient may also benefit from wound care nursing. (2) Cellulitis of right foot: Admission and Anticipated Discharge Date Admission Date: November 04, 2021 Subjective Improved right ankle pain today versus her pain in the ER yesterday. She has some pain radiating into the mid lower leg as well as the plantar aspect of her foot. Physical Exam Constitutional: well developed, well nourished and + acute distress (Patient i s much more comfortable today.) ENMT: external ear and nose normal, oropharynx normal Neck: trachea midline Musculoskeletal: Ankle: + surgical incision (Nonhealing wound at the posterior medial aspect of the ankle.); no skin erythema (Minimal to no erythema around the posteromedial ankle nonhealing wound) Skin: + ulcer (Posterior medial right ankle. No increase in size. Minimal erythema. ) and + wound (Central sloughing at the posterior medial aspect wound) Psychiatric: A+Ox3, euthymic affect Speech: normal rate/rhythm/volume of speech Results & Data ([facility]) Vital Signs (Past 12 Hours) Vital Signs Temp Pulse Resp BP Pulse Ox 11/05/21 07:14 36.6 C 87 14 120/74 94
--- NOTE | 2021-11-05 12:03 | Hospitalist Progress Note ---
Date of Service November 05, 2021 Assessment & Plan (1) Osteomyelitis: Plan: With a recent history of amputation of the right great and second toes for osteomyelitis and was on IV cefepime and vancomycin x6 weeks Now with recurrent severe pain in the right ankle following discontinuation of IV antibiotics Evidence of osteomyelitis in the right first and second metatarsals on x-ray as well as on MRI but stable from previous -CRP and ESR are trending downward since previous - Orthopaedics consulted-awaiting MRI result and then will decide if needs surgical intervention - MRI of the foot and ankle with and without contrast finally completed on 11/05- shows extensive tenosynovitis of the right ankle and osteomyelitis of the first and second metatarsals -With a history of Enterobacter and Klebsiella as well as MRSA on prior cultures - Will continue Cefepime and Vancomycin while cultures pending -Blood cultures-no growth to date Continue wound care to the open wound over the right medial ankle with Aquacel Ag and gauze or OPTi foam -Continue pain control with IV Dilaudid, oxycodone as needed, Tylenol as needed (2) Tenosynovitis of ankle: Plan: As above Await orthopedic input Continue antibiotics Pain control (3) Hypomagnesemia: Plan: Replaced today with 2 g IV magnesium (4) Hyponatremia: Plan: Mildly low at 133 Could be SIADH due to pain Follow BMP (5) Diabetes mellitus type 2, uncontrolled: Plan: Poorly controlled - admission BG 300 and with persistent hyperglycemia today although improved - Obviously this is not assisting with wound healing Continue basal bolus insulin and tighten down the NovoLog today Last hemoglobin A1c was 11.1% in 07/2021 Check hemoglobin A1c in the morning Diabetic diet (6) Hyperlipidemia: Plan: Not on statin lipids elevated on check on 10/20 - consider initiating statin therapy for overall risk reduction (7) PAD (peripheral artery disease): Plan: Continue asa, control BP, glucose control (8) HTN (hypertension): Plan: Blood pressures controlled - Continue metoprolol, lisinopril Continue aspirin 81 twice daily (9) Diabetic peripheral neuropathy: Plan: Continue her ropinirole for restless legs, nortriptyline Check iron studies in the morning his MCV is low and could have iron deficiency contributing (10) Insomnia: Plan: Continue her Ambien- follow [employer] use with PCP Plan: DVT prophylaxis Heparin SQ Disposition-continued stay medical/surgical unit Admission and Anticipated Discharge Date Admission Date: November 04, 2021 Subjective Still complaining of severe pain in the right medial ankle and foot but is improving with pain control Still low appetite secondary to pain. No chest pain or shortness of breath, no diarrhea or constipation. Review of Systems Review of Systems: All systems reviewed & are unremarkable except as noted in HPI & below Physical Exam Constitutional: WD/WN, vitals as above Eyes: + anicteric sclerae Neck: trachea midline, no thyromegaly Respiratory: normal respiratory effort, lungs clear to auscultation Cardiovascular: RRR, no murmur, no edema Chest (Breasts): Chest: normal inspection of chest Gastrointestinal (Abdomen): normal bowel sounds, soft, nontender, no hepatosplenomegaly Musculoskeletal: Extremities: + extremities abnormal to inspection (Amputated right great and second toes, open wound right medial ankle), no cyanosis and no clubbing Skin: no rashes, warm and dry + wound (3 x 2 cm open wound right medial a nkle, exposed tendon, surrounding erythem) Neurologic: moves all extremities and awake; no focal motor deficits Psychiatric: A+Ox3, euthymic affect Lymphatic: no lymphedema Results & Data Results & Data ([facility]) Vital Signs (Past 12 Hours) Vital Signs Temp Pulse Resp BP Pulse Ox 11/05/21 07:14 36.6 C 87 14 120/74 94 Laboratory Results 11/05/21 11/05/21 11/05/21 Range/Units 17:19 12:21 08:04 WBC (4.8-10.8) K/uL RBC (4.2-5.4) M/uL Hgb (12.0-16.0) g/dL Hct (37-47) % MCV (80-100) fL MCH (25-34) pg MCHC (32-36) g/dL RDW Std Deviation (36.4-46.3) fL RDW Coeff of Maria Del Carmen (11.5-14.5) % Plt Count (130-400) K/uL MPV (7.4-10.4) fL Immature Gran % (Auto) % Neut % (Auto) % Lymph % (Auto) % Hemphill % (Auto) % Eos % (Auto) % Baso % (Auto) % Neut # (Auto) (1.4-6.5) K/uL Lymph # (Auto) (1.2-3.4) K/uL Hemphill # (Auto) (0.11-0.59) K/uL Eos # (Auto) (0-0.5) K/uL Baso # (Auto) (0-0.2) K/uL Immature Gran # (Auto) (0.00-0.02) K/uL ESR (0-30) mm/hr Sodium (136-145) mmol/L Potassium (3.5-5.1) mmol/L Chloride (98-107) mmol/L Carbon Dioxide (21-32) mmol/L Anion Gap (3-11) BUN (6-23) mg/dl Creatinine (0.6-1.2) mg/dl Est Cr Clr Drug Dosing ml/min Est GFR ( Amer) ml/min Est GFR (Non-Af Amer) ml/min BUN/Creatinine Ratio (10-20) Glucose (70-99(Fasting)) mg/dl POC Glucose 166 H 164 H 204 H (70-99) mg/dl Calcium (8.5-10.1) mg/dl Magnesium (1.7-2.4) mg/dl C-Reactive Protein (0-0.5) mg/dl Nasal Screen MRSA (PCR) (Negative) 11/05/21 11/05/21 11/05/21 Range/Units 06:22 06:22 06:22 WBC 7.74 (4.8-10.8) K/uL RBC 4.49 (4.2-5.4) M/uL Hgb 11.2 L (12.0-16.0) g/dL Hct 35.6 L (37-47) % MCV 79.3 L (80-100) fL MCH 24.9 L (25-34) pg MCHC 31.5 L (32-36) g/dL RDW Std Deviation 42.4 (36.4-46.3) fL RDW Coeff of Maria Del Carmen 14.5 (11.5-14.5) % Plt Count 290 (130-400) K/uL MPV 10.1 (7.4-10.4) fL Immature Gran % (Auto) 0.1 % Neut % (Auto) 61.5 % Lymph % (Auto) 22.6 % Hemphill % (Auto) 10.5 % Eos % (Auto) 4.9 % Baso % (Auto) 0.4 % Neut # (Auto) 4.76 (1.4-6.5) K/uL Lymph # (Auto) 1.75 (1.2-3.4) K/uL Hemphill # (Auto) 0.81 H (0.11-0.59) K/uL Eos # (Auto) 0.38 (0-0.5) K/uL Baso # (Auto) 0.03 (0-0.2) K/uL Immature Gran # (Auto) 0.01 (0.00-0.02) K/uL ESR 18 (0-30) mm/hr Sodium 133 L (136-145) mmol/L Potassium 4.3 (3.5-5.1) mmol/L Chloride 101 (98-107) mmol/L Carbon Dioxide 27 (21-32) mmol/L Anion Gap 5 (3-11) BUN 12 (6-23) mg/dl Creatinine 0.45 L (0.6-1.2) mg/dl Est Cr Clr Drug Dosing 120.5 ml/min Est GFR ( Amer) 128.9 ml/min Est GFR (Non-Af Amer) 111.2 ml/min BUN/Creatinine Ratio 26.7 H (10-20) Glucose 205 H (70-99(Fasting)) mg/dl POC Glucose (70-99) mg/dl Calcium 8.5 (8.5-10.1) mg/dl Magnesium 1.6 L (1.7-2.4) mg/dl C-Reactive Protein 0.68 H (0-0.5) mg/dl Nasal Screen MRSA (PCR) (Negative) 11/04/21 11/04/21 Range/Units 22:10 20:50 WBC (4.8-10.8) K/uL RBC (4.2-5.4) M/uL Hgb (12.0-16.0) g/dL Hct (37-47) % MCV (80-100) fL MCH (25-34) pg MCHC (32-36) g/dL RDW Std Deviation (36.4-46.3) fL RDW Coeff of Maria Del Carmen (11.5-14.5) % Plt Count (130-400) K/uL MPV (7.4-10.4) fL Immature Gran % (Auto) % Neut % (Auto) % Lymph % (Auto) % Hemphill % (Auto) % Eos % (Auto) % Baso % (Auto) % Neut # (Auto) (1.4-6.5) K/uL Lymph # (Auto) (1.2-3.4) K/uL Hemphill # (Auto) (0.11-0.59) K/uL Eos # (Auto) (0-0.5) K/uL Baso # (Auto) (0-0.2) K/uL Immature Gran # (Auto) (0.00-0.02) K/uL ESR (0-30) mm/hr Sodium (136-145) mmol/L Potassium (3.5-5.1) mmol/L Chloride (98-107) mmol/L Carbon Dioxide (21-32) mmol/L Anion Gap (3-11) BUN (6-23) mg/dl Creatinine (0.6-1.2) mg/dl Est Cr Clr Drug Dosing ml/min Est GFR ( Amer) ml/min Est GFR (Non-Af Amer) ml/min BUN/Creatinine Ratio (10-20) Glucose (70-99(Fasting)) mg/dl POC Glucose 300 H (70-99) mg/dl Calcium (8.5-10.1) mg/dl Magnesium (1.7-2.4) mg/dl C-Reactive Protein (0-0.5) mg/dl Nasal Screen MRSA (PCR) Negative (Negative) PG Care Time/CCT Total # of Minutes Spent Total Time Spent with Patient: Total time spent is greater than 50% in coordination of care (as documented) at patient's floor/unit and/or counseling patient: Coding Level of Care Code 53811 Subseq Hosp Care Lvl 3 Diagnoses Osteomyelitis M86.9 Laterality: right Osteomyelitis location: foot Osteomyelitis type: unspecified type Diabetes mellitus type 2, uncontrolled E11.65 Hyperlipidemia E78.5 Hyperlipidemia type: unspecified PAD (peripheral artery disease) I73.9 HTN (hypertension) I10 Diabetic peripheral neuropathy E11.42 Insomnia G47.00 Hypomagnesemia E83.42 Hyponatremia E87.1 Tenosynovitis of ankle M65.9 (1) Hyperlipidemia Hyperlipidemia type: unspecified Qualified Code(s): E78.5 - Hyperlipidemia, unspecified (2) Osteomyelitis Laterality: right Osteomyelitis location: foot Osteomyelitis type: unspecified type Qualified Code(s): M86.9 - Osteomyelitis, unspecified
[2021-11-05] MEDS ORDERED: GADOBUTROL 65ML VIAL IV ONE (15:51)
--- NOTE | 2021-11-05 17:01 | Magnetic Resonance Report ---
MR ankle RT wo/w con CLINICAL HISTORY: Previous osteomyelitis with multiple surgeries and sections. Ulceration along the medial aspect of the ankle. Evaluate for recurrent osteomyelitis. COMPARISON STUDY: 09/26/2021 TECHNIQUE: Multiplanar multisequence images of the were performed with and without IV contrast. Contrast Volume: 6.6 ml of Gadavist FINDINGS: Osseous structures: There is very slight marrow edema present involving the medial margin of the medi al malleolus which is unchanged from previous examination. It does not enhance following contrast adm inistration. There is slight marrow edema is also seen involving the talus as well. Again, there is n o enhancement following contrast administration. These findings are most characteristic of mild react britney edema. There is no definite MR evidence for osteomyelitis of the ankle bones. Homogeneous marrow signal seen throughout the remaining imaged bones of the ankle. There is no other evidence for marrow edema or marrow replacement. There is no abnormal marrow enhancement following co ntrast administration. There is no evidence for an acute or occult fracture. Joints: The tibiotalar joint is maintained. There is no evidence for joint effusion. No osteochondra l defects are seen at the talar dome. The subtalar joint is maintained. Tendons: The tibialis posterior, flexor digitorum longus and flexor hallucis longus tendons are intac t. However, there is fluid seen within the tendon sheaths and within the soft tissues surrounding the tendons characteristic of tenosynovitis and inflammatory change. The peroneus longus and brevis tendons are within normal limits. There is no evidence for tendon te ar or tendinopathy. The Achilles' tendon is within normal limits. Plantar fascia is within normal mcduffie its. Ligaments: The anterior and posterior tibiofibular and talofibular ligaments are intact. Deltoid comp bebo is within normal limits. The calcaneofibular ligament is also within normal limits. Soft tissues: There is also diffuse subcutaneous soft tissue swelling along the medial aspect of the ankle and extending inferiorly. There is diffuse enhancement of the surrounding soft tissues characte ristic of cellulitis. No focal abscess is seen. No focal fluid collections are identified. IMPRESSION: 1. No definite MR evidence for osteomyelitis of the ankle joint. 2. Mild reactive edema is again seen involving the margin of the medial malleolus and adjacent talus as described. 3. Extensive tenosynovitis and soft tissue swelling surrounding the posterior tibialis, flexor digito rum longus and flexor hallucis longus tendons. 4. No tendon tears are seen. 5. Extensive enhancement of the soft tissues following contrast administration characteristic of cell ulitis and inflammatory change. ACT 112: Negative or not required by law. Electronically signed by: Jaylon Connell M.D. 11/05/2021 4:59 PM
--- NOTE | 2021-11-05 17:36 | Magnetic Resonance Report ---
MR foot RT wo/w con CLINICAL HISTORY: Previous osteomyelitis with multiple resections including amputations of the first and second toes at the neck of the first and second metatarsals. COMPARISON: 09/26/2021 TECHNIQUE: Multiplanar multisequence images of the right foot foot were performed with and without I V contrast. A marker was placed along the distal foot, medially where the patient states the infectio n began. Contrast Volume: 6.6 ml of Gadavist FINDINGS: Osseous structures: Compared to the previous examination, there is still diffuse marrow edema and enh ancement present involving the distal half of the first metatarsal and the distal amputation margin o f the second metatarsal. No abnormal marrow edema is seen involving the distal third metatarsal on th e current study. This represents interval improvement at this site. The findings are again characteri stic of osteomyelitis. Homogeneous marrow signal is seen throughout the remaining imaged bones of the foot. There is no oth er evidence for marrow edema or marrow replacement. There is no other sites of abnormal marrow enhanc ement following contrast administration. No acute osseous pathology is seen. Joints: The third through fifth MTP joints are intact. The IP joints are intact. The remaining imaged joints of the foot are intact. Tendons: The extensor tendons along the dorsum of the foot and the flexor tendons along the plantar a spect of the foot are intact. Ligaments: The imaged ligaments of the foot are intact. Soft tissues: There is diffuse soft tissue swelling and edema at the amputation stumps. There is flui d seen adjacent to the end of the amputated first metatarsal. Following contrast administration, diff use edematous changes are seen within the amputation stump and within the interosseous muscles surrou nding the first and second metatarsals. No focal fluid collections are identified. IMPRESSION: 1. MR findings characteristic of continued osteomyelitis involving the distal amputated first and sec ond metatarsal shafts. However, the findings are stable. 2. There has been resolution of previously identified marrow edema involving the distal third metatar cristela with no evidence for osteomyelitis at this site. 3. There is diffuse edema and enhancement of the limitations stomach with fluid in the distal end of the first metatarsal. These findings are characteristic of diffuse cellulitis. 4. No focal abscess is identified. ACT 112: Negative or not required by law. Electronically signed by: Jaylon Connell M.D. 11/05/2021 5:34 PM
[2021-11-05] MEDS: NORTRIPTYLINE HCL 25 MG CAP PO SCH (19:47)
[2021-11-05] MEDS: rOPINIRole HCL 2 MG TABLET PO SCH (19:47)
[2021-11-05] MEDS: INSULIN GLARGINE SOLOSTAR 100 UNITS/ML 3 ML PEN SQ SCH (20:58)
[2021-11-05] MEDS: ZOLPIDEM TARTRATE 10 MG TAB PO PRN (20:59)
[2021-11-06] MEDS: oxyCODONE/ACETAMINOPHEN 5mg/325mg TAB PO PRN ×5 (01:20→20:48)
[2021-11-06] MEDS: HYDROmorphone INJ 0.5 MG/0.5 ML SYR IV PRN ×4 (03:14→22:00)
[2021-11-06] MEDS: CEFEPIME 2,000 MG in SYRINGE 0 ML IV SCH ×3 (03:14→20:24)
[2021-11-06] MEDS: ONDANSETRON INJ 2 MG/ML 2 ML VIAL IV PRN ×2 (03:25→16:06)
[2021-11-06] MEDS: INSULIN ASPART PER UNIT SC SCH ×4 (09:15→20:48)
[2021-11-06] MEDS: CYCLOBENZAPRINE HCL 10 MG TAB PO SCH ×3 (09:18→20:24)
[2021-11-06] MEDS: ASPIRIN 81 MG ECTAB PO SCH (09:18)
[2021-11-06] MEDS: lisinopril 10 MG TAB PO SCH (09:18)
[2021-11-06] MEDS: HEPARIN SOD 5,000 UNIT/0.5 ML VIAL SQ SCH ×2 (09:19→20:26)
[2021-11-06] MEDS: METOPROLOL SUCC 50MG EXT REL TAB PO SCH (09:19)
[2021-11-06] MEDS ORDERED: VANCOMYCIN TROUGH ONE (09:30)
[2021-11-06 09:58] LABS: Basophils # (auto) 0.02 K/uL (0-0.2); Basophils % (auto) 0.3 %; Eosinophils # (auto) 0.42 K/uL (0-0.5); Eosinophils % (auto) 5.3 %; Hematocrit (blood only) 35.5 % (37-47); Hemoglobin 11.5 g/dL (12.0-16.0); Immature Granulocytes # (auto) 0.01 K/uL (0.00-0.02); Immature Granulocytes % (auto) 0.1 %; Lymphocytes # (auto) 1.72 K/uL (1.2-3.4); Lymphocytes % (auto) 21.7 %; Mean Corpuscular Hemoglobin 25.9 pg (25-34); Mean Corpuscular Hgb Conc 32.4 g/dL (32-36); Mean Platelet Volume 9.5 fL (7.4-10.4); Monocytes # (auto) 0.96 K/uL (0.11-0.59); Monocytes % (auto) 12.1 %; Neutrophils % (auto) 60.5 %; Platelet Count 272 K/uL (130-400); RDW Coefficient of Variation 14.5 % (11.5-14.5); Red Blood Count 4.44 M/uL (4.2-5.4); White Blood Count 7.93 K/uL (4.8-10.8)
[2021-11-06 10:24] LABS: BUN Creatinine Ratio 20.7 (10-20); Calcium 8.8 mg/dl (8.5-10.1); Creatinine Clr Calc Pharmacy 93.5 ml/min; Est GFR (African American) 118.6 ml/min; Est GFR (Non-African American) 102.3 ml/min; Potassium 4.2 mmol/L (3.5-5.1)
[2021-11-06 10:37] LABS: Iron 24 mcg/dl (35-150); Total Iron Binding Cap Calc 537 mcg/dl (250-450); Transferrin (FE) Percent Satur 4 % (15-50); Unsaturated Iron Binding Cap 513 mcg/dl (155-355)
[2021-11-06 10:40] LABS: Ferritin 8.5 ng/ml (8-388)
[2021-11-06] MEDS: VANCOMYCIN HCL 1,000 MG in SODIUM CHLORIDE 0.9% 250 ML IV SCH ×2 (11:57→20:24)
--- NOTE | 2021-11-06 14:13 | Pharmacy Report ---
Pharmacy Vanc AUC Short Note - Date of Service November 06, 2021 - Assessment & Plan Assessment 56 year old F receiving Vancomycin/Cefepime for treatment of osteomyelitis. Pertinent microbiologic data includes: HX of MRSA. Day # 3 of antimicrobial therapy. Plan Vancomycin * AUC/CELSO is the preferred PK/PD target for vancomycin * AUC guided dosing is effective and associated with decreased risk of nephrotoxicity compared to traditional trough targets * Trough level of 17.0 mcg/mL is predicted to achieve target AUC/CELSO of 400-600 mg/L.hr and may be associated with a 13 % risk of nephrotoxicity * Change dose to 1000mg IV every 8 hours * Trough level ordered for: 11/07/21 @ 1130 Pharmacy will continue to follow and will adjust dose/frequency as necessary. Thank you.
--- NOTE | 2021-11-06 14:14 | Hospitalist Progress Note ---
Date of Service November 06, 2021 Assessment & Plan (1) Osteomyelitis: Plan: With a recent history of amputation of the right great and second toes for osteomyelitis and was on IV cefepime and vancomycin x6 weeks Now with recurrent severe pain in the right ankle following discontinuation of IV antibiotics Evidence of osteomyelitis in the right first and second metatarsals on x-ray as well as on MRI but stable from previous -CRP and ESR are trending downward since previous - Orthopaedics consulted-trying to hold off on surgical intervention at this time - MRI of the foot and ankle with and without contrast finally completed on 11/05- shows extensive tenosynovitis of the right ankle and osteomyelitis of the first and second metatarsals -With a history of Enterobacter and Klebsiella as well as MRSA on prior cultures - Will continue Cefepime and Vancomycin while cultures pending -Plan for wound vacuum as per orthopedics, eventual skin grafting -Blood cultures-no growth to date Continue wound care to the open wound over the right medial ankle with Aquacel Ag and gauze or OPTi foam for now until after wound VAC placement -Continue pain control with IV Dilaudid and increase frequency to every 4 hours, continue oxycodone as needed, Tylenol as needed -ID consult pending (2) Tenosynovitis of ankle: Plan: As above Appreciate orthopedic input Continue antibiotics Pain control (3) Hypomagnesemia: Plan: Replaced and now resolved (4) Hyponatremia: Plan: Mildly low at 133, stable from yesterday Could be SIADH due to pain Follow BMP Check urine sodium and urine osmolality (5) Diabetes mellitus type 2, uncontrolled: Plan: Poorly controlled -with significant hyperglycemia in the first 2 days of admission now improved - Obviously this is not assisting with wound healing Continue basal bolus insulin Last hemoglobin A1c was 11.1% in 07/2021 Check hemoglobin [id number] Diabetic diet (6) Hyperlipidemia: Plan: Not on statin lipids elevated on check on 10/20 - consider initiating statin therapy for overall risk reduction (7) PAD (peripheral artery disease): Plan: Continue asa but decrease to once daily as she is beyond the 4 weeks from her last ankle surgery control BP, glucose control (8) HTN (hypertension): Plan: Blood pressures controlled - Continue metoprolol, lisinopril Continue aspirin 81 but decrease down to once daily from twice daily which was the dose for her DVT prophylaxis from ankle surgery (9) Diabetic peripheral neuropathy: Plan: Continue her ropinirole for restless legs, nortriptyline With severe iron deficiency found Give IV Venofer (10) Insomnia: Plan: Continue her Ambien- follow rodent exterminator use with PCP (11) Iron deficiency anemia: Plan: Severe iron deficiency with transferrin saturation 4%, ferritin severely low at 4 Gave IV Venofer but developed redness in the head and neck with normal vital signs and no signs of anaphylaxis Discontinued Venofer after partial dose administered Will use oral iron instead Add docusate to prevent constipation Plan: DVT prophylaxis Heparin SQ Disposition-continued stay medical/surgical unit Admission and Anticipated Discharge Date Admission Date: November 04, 2021 Subjective Had a rough night with multiple sticks for new IVs that kept blowing. Still having tremendous pain in the ankle. Still has very low appetite and not eating much. She is agreeable to PICC line consent was obtained She is anxious about getting PICC line. She is also agreeable to IV iron which she has never had before but has severe iron deficiency. Denies chest pain or shortness of breath Review of Systems Review of Systems: All systems reviewed & are unremarkable except as noted in HPI & below Physical Exam Constitutional: WD/WN, vitals as above Eyes: + anicteric sclerae Neck: trachea midline, no thyromegaly Respiratory: normal respiratory effort, lungs clear to auscultation Cardiovascular: RRR, no murmur, no edema Chest (Breasts): Chest: normal inspection of chest Gastrointestinal (Abdomen): normal bowel sounds, soft, nontender, no hepatosplenomegaly Musculoskeletal: Extremities: + extremities abnormal to inspection (Amputated right great and second toes, open wound right medial ankle), no cyanosis and no clubbing Skin: no rashes, warm and dry Neurologic: moves all extremities and awake; no focal motor deficits Psychiatric: A+Ox3, euthymic affect Lymphatic: no lymphedema Results & Data Results & Data ([facility]) Vital Signs (Past 12 Hours) Vital Signs Temp Pulse Resp BP Pulse Ox 11/06/21 07:37 36.6 C 74 16 110/69 97 Laboratory Results 11/06/21 11/06/21 11/06/21 Range/Units 12:01 09:44 09:44 WBC (4.8-10.8) K/uL RBC (4.2-5.4) M/uL Hgb (12.0-16.0) g/dL Hct (37-47) % MCV (80-100) fL MCH (25-34) pg MCHC (32-36) g/dL RDW Std Deviation (36.4-46.3) fL RDW Coeff of Maria [place] Carmen (11.5-14.5) % Plt Count (130-400) K/uL MPV (7.4-10.4) fL Immature Gran % (Auto) % Neut % (Auto) % Lymph % (Auto) % [place] % (Auto) % Eos % (Auto) % Baso % (Auto) % Neut # (Auto) (1.4-6.5) K/uL Lymph # (Auto) (1.2-3.4) K/uL [place] # (Auto) (0.11-0.59) K/uL Eos # (Auto) (0-0.5) K/uL Baso # (Auto) (0-0.2) K/uL Immature Gran # (Auto) (0.00-0.02) K/uL Sodium (136-145) mmol/L Potassium (3.5-5.1) mmol/L Chloride (98-107) mmol/L Carbon Dioxide (21-32) mmol/L Anion Gap (3-11) BUN (6-23) mg/dl Creatinine (0.6-1.2) mg/dl Est Cr Clr Drug Dosing ml/min Est GFR ( Amer) ml/min Est GFR (Non-Af Amer) ml/min BUN/Creatinine Ratio (10-20) Glucose (70-99(Fasting)) mg/dl POC Glucose 137 H (70-99) mg/dl Estimat Average Glucose Pending Hemoglobin A1c Pending Calcium (8.5-10.1) mg/dl Magnesium 1.9 (1.7-2.4) mg/dl Iron (35-150) mcg/dl TIBC (250-450) mcg/dl Unsaturated IBC (155-355) mcg/dl Transferrin % Sat (15-50) % Ferritin (8-388) ng/ml Vancomycin Trough (10-20) mcg/ml 11/06/21 11/06/21 11/06/21 Range/Units 09:44 09:44 09:44 WBC (4.8-10.8) K/uL RBC (4.2-5.4) M/uL Hgb (12.0-16.0) g/dL Hct (37-47) % MCV (80-100) fL MCH (25-34) pg MCHC (32-36) g/dL RDW Std Deviation (36.4-46.3) fL RDW Coeff of Maria [place]en (11.5-14.5) % Plt Count (130-400) K/uL MPV (7.4-10.4) fL Immature Gran % (Auto) % Neut % (Auto) % Lymph % (Auto) % [place] % (Auto) % Eos % (Auto) % Baso % (Auto) % Neut # (Auto) (1.4-6.5) K/uL Lymph # (Auto) (1.2-3.4) K/uL [place] # (Auto) (0.11-0.59) K/uL Eos # (Auto) (0-0.5) K/uL Baso # (Auto) (0-0.2) K/uL Immature Gran # (Auto) (0.00-0.02) K/uL Sodium 133 L (136-145) mmol/L Potassium 4.2 (3.5-5.1) mmol/L Chloride 99 (98-107) mmol/L Carbon Dioxide 29 (21-32) mmol/L Anion Gap 5 (3-11) BUN 12 (6-23) mg/dl Creatinine 0.58 L (0.6-1.2) mg/dl Est Cr Clr Drug Dosing 93.5 ml/min Est GFR ( Amer) 118.6 ml/min Est GFR (Non-Af Amer) 102.3 ml/min BUN/Creatinine Ratio 20.7 H (10-20) Glucose 158 H (70-99(Fasting)) mg/dl POC Glucose (70-99) mg/dl Estimat Average Glucose Hemoglobin A1c Calcium 8.8 (8.5-10.1) mg/dl Magnesium (1.7-2.4) mg/dl Iron 24 L (35-150) mcg/dl TIBC 537 H (250-450) mcg/dl Unsaturated IBC 513 H (155-355) mcg/dl Transferrin % Sat 4 L (15-50) % Ferritin 8.5 (8-388) ng/ml Vancomycin Trough 7.8 L (10-20) mcg/ml 11/06/21 11/06/21 11/05/21 Range/Units 09:44 08:30 20:39 WBC 7.93 (4.8-10.8) K/uL RBC 4.44 (4.2-5.4) M/uL Hgb 11.5 L (12.0-16.0) g/dL Hct 35.5 L (37-47) % MCV 80.0 (80-100) fL MCH 25.9 (25-34) pg MCHC 32.4 (32-36) g/dL RDW Std Deviation 42.0 (36.4-46.3) fL RDW Coeff of Maria Del Carmen 14.5 (11.5-14.5) % Plt Count 272 (130-400) K/uL MPV 9.5 (7.4-10.4) fL Immature Gran % (Auto) 0.1 % Neut % (Auto) 60.5 % Lymph % (Auto) 21.7 % [place] % (Auto) 12.1 % Eos % (Auto) 5.3 % Baso % (Auto) 0.3 % Neut # (Auto) 4.80 (1.4-6.5) K/uL Lymph # (Auto) 1.72 (1.2-3.4) K/uL [place] # (Auto) 0.96 H (0.11-0.59) K/uL Eos # (Auto) 0.42 (0-0.5) K/uL Baso # (Auto) 0.02 (0-0.2) K/uL Immature Gran # (Auto) 0.01 (0.00-0.02) K/uL Sodium (136-145) mmol/L Potassium (3.5-5.1) mmol/L Chloride (98-107) mmol/L Carbon Dioxide (21-32) mmol/L Anion Gap (3-11) BUN (6-23) mg/dl Creatinine (0.6-1.2) mg/dl Est Cr Clr Drug Dosing ml/min Est GFR ( Amer) ml/min Est GFR (Non-Af Amer) ml/min BUN/Creatinine Ratio (10-20) Glucose (70-99(Fasting)) mg/dl POC Glucose 123 H 176 H (70-99) mg/dl Estimat Average Glucose Hemoglobin A1c Calcium (8.5-10.1) mg/dl Magnesium (1.7-2.4) mg/dl Iron (35-150) mcg/dl TIBC (250-450) mcg/dl Unsaturated IBC (155-355) mcg/dl Transferrin % Sat (15-50) % Ferritin (8-388) ng/ml Vancomycin Trough (10-20) mcg/ml 11/05/21 Range/Units 17:19 WBC (4.8-10.8) K/uL RBC (4.2-5.4) M/uL Hgb (12.0-16.0) g/dL Hct (37-47) % MCV (80-100) fL MCH (25-34) pg MCHC (32-36) g/dL RDW Std Deviation (36.4-46.3) fL RDW Coeff of Maria [place] Carm[place] (11.5-14.5) % Plt Count (130-400) K/uL MPV (7.4-10.4) fL Immature Gran % (Auto) % Neut % (Auto) % Lymph % (Auto) % [place] % (Auto) % Eos % (Auto) % Baso % (Auto) % Neut # (Auto) (1.4-6.5) K/uL Lymph # (Auto) (1.2-3.4) K/uL [place] # (Auto) (0.11-0.59) K/uL Eos # (Auto) (0-0.5) K/uL Baso # (Auto) (0-0.2) K/uL Immature Gran # (Auto) (0.00-0.02) K/uL Sodium (136-145) mmol/L Potassium (3.5-5.1) mmol/L Chloride (98-107) mmol/L Carbon Dioxide (21-32) mmol/L Anion Gap (3-11) BUN (6-23) mg/dl Creatinine (0.6-1.2) mg/dl Est Cr Clr Drug Dosing ml/min Est GFR ( Amer) ml/min Est GFR (Non-Af Amer) ml/min BUN/Creatinine Ratio (10-20) Glucose (70-99(Fasting)) mg/dl POC Glucose 166 H (70-99) mg/dl Estimat Average Glucose Hemoglobin A1c Calcium (8.5-10.1) mg/dl Magnesium (1.7-2.4) mg/dl Iron (35-150) mcg/dl TIBC (250-450) mcg/dl Unsaturated IBC (155-355) mcg/dl Transferrin % Sat (15-50) % Ferritin (8-388) ng/ml Vancomycin Trough (10-20) mcg/ml PG Care Time/CCT Total # of Minutes Spent Total Time Spent with Patient: Total time spent is greater than 50% in coordination of care (as documented) at patient's floor/unit and/or counseling patient: Coding Level of Care Code 74086 Subseq Hosp Care Lvl 3 Diagnoses Osteomyelitis M86.9 Laterality: right Osteomyelitis location: foot Osteomyelitis type: unspecified type Tenosynovitis of ankle M65.9 Hypomagnesemia E83.42 Hyponatremia E87.1 Diabetes mellitus type 2, uncontrolled E11.65 Hyperlipidemia E78.5 Hyperlipidemia type: unspecified PAD (peripheral artery disease) I73.9 HTN (hypertension) I10 Diabetic peripheral neuropathy E11.42 Insomnia G47.00 Iron deficiency anemia D50.9 (1) Hyperlipidemia Hyperlipidemia type: unspecified Qualified Code(s): E78.5 - Hyperlipidemia, unspecified (2) Osteomyelitis Laterality: right Osteomyelitis location: foot Osteomyelitis type: unspecified type Qualified Code(s): M86.9 - Osteomyelitis, unspecified
[2021-11-06] MEDS ORDERED: IRON SUCROSE 300 MG in SODIUM CHLORIDE 0.9% 250 ML IV SCH (14:45)
[2021-11-06] MEDS: DOCUSATE SODIUM 100 MG CAP PO SCH ×2 (14:55→20:26)
[2021-11-06] MEDS: LORazepam 1 MG TAB PO PRN (17:08)
[2021-11-06] MEDS: VANCOMYCIN HCL 1,250 MG in SODIUM CHLORIDE 0.9% 250 ML IV SCH (19:30)
[2021-11-06] MEDS: rOPINIRole HCL 2 MG TABLET PO SCH (20:24)
[2021-11-06] MEDS: NORTRIPTYLINE HCL 25 MG CAP PO SCH (20:25)
[2021-11-06] MEDS: ZOLPIDEM TARTRATE 10 MG TAB PO PRN (20:48)
[2021-11-06] MEDS: INSULIN GLARGINE SOLOSTAR 100 UNITS/ML 3 ML PEN SQ SCH (20:49)
[2021-11-07] MEDS: HYDROmorphone INJ 0.5 MG/0.5 ML SYR IV PRN ×7 (02:00→21:26)
[2021-11-07] MEDS: VANCOMYCIN HCL 1,000 MG in SODIUM CHLORIDE 0.9% 250 ML IV SCH ×2 (05:04→11:58)
[2021-11-07] MEDS: CEFEPIME 2,000 MG in SYRINGE 0 ML IV SCH ×3 (05:04→19:52)
[2021-11-07 06:18] LABS: Basophils # (auto) 0.02 K/uL (0-0.2); Basophils % (auto) 0.3 %; Eosinophils # (auto) 0.26 K/uL (0-0.5); Eosinophils % (auto) 3.3 %; Hematocrit (blood only) 33.2 % (37-47); Hemoglobin 10.7 g/dL (12.0-16.0); Immature Granulocytes # (auto) 0.01 K/uL (0.00-0.02); Immature Granulocytes % (auto) 0.1 %; Lymphocytes # (auto) 1.87 K/uL (1.2-3.4); Lymphocytes % (auto) 23.9 %; Mean Corpuscular Hemoglobin 25.7 pg (25-34); Mean Corpuscular Hgb Conc 32.2 g/dL (32-36); Mean Corpuscular Volume 79.8 fL (80-100); Mean Platelet Volume 9.7 fL (7.4-10.4); Monocytes # (auto) 0.99 K/uL (0.11-0.59); Monocytes % (auto) 12.6 %; Neutrophils # (auto) 4.68 K/uL (1.4-6.5); Neutrophils % (auto) 59.8 %; Platelet Count 267 K/uL (130-400); RDW Coefficient of Variation 14.5 % (11.5-14.5); RDW Standard Deviation 42.6 fL (36.4-46.3); Red Blood Count 4.16 M/uL (4.2-5.4); White Blood Count 7.83 K/uL (4.8-10.8)
[2021-11-07 06:39] LABS: BUN Creatinine Ratio 29.7 (10-20); Calcium 8.8 mg/dl (8.5-10.1); Creatinine Clr Calc Pharmacy 146.6 ml/min; Est GFR (African American) 137.5 ml/min; Est GFR (Non-African American) 118.6 ml/min; Magnesium 1.8 mg/dl (1.7-2.4); Potassium 4.1 mmol/L (3.5-5.1)
[2021-11-07 07:25] LABS: Estimated Average Glucose 255 mg/dl; Hemoglobin A1C 10.5 % (4.5-5.6)
[2021-11-07] MEDS: ONDANSETRON INJ 2 MG/ML 2 ML VIAL IV PRN ×3 (07:40→19:50)
[2021-11-07] MEDS: oxyCODONE/ACETAMINOPHEN 5mg/325mg TAB PO PRN ×4 (07:40→21:52)
[2021-11-07] MEDS: LORazepam 1 MG TAB PO PRN ×3 (08:17→22:53)
[2021-11-07] MEDS: ASPIRIN 81 MG ECTAB PO SCH (08:17)
[2021-11-07] MEDS: DOCUSATE SODIUM 100 MG CAP PO SCH ×2 (08:17→20:01)
[2021-11-07] MEDS: CYCLOBENZAPRINE HCL 10 MG TAB PO SCH ×3 (08:18→20:01)
[2021-11-07] MEDS: HEPARIN SOD 5,000 UNIT/0.5 ML VIAL SQ SCH ×2 (08:18→20:01)
[2021-11-07] MEDS: lisinopril 10 MG TAB PO SCH (08:22)
[2021-11-07] MEDS: METOPROLOL SUCC 50MG EXT REL TAB PO SCH (08:23)
[2021-11-07] MEDS: INSULIN ASPART PER UNIT SC SCH ×4 (08:55→21:32)
[2021-11-07] MEDS: FERROUS GLUCONATE 324 MG TAB PO SCH ×2 (10:38→17:35)
[2021-11-07] MEDS ORDERED: VANCOMYCIN TROUGH ONE (11:30)
--- NOTE | 2021-11-07 13:20 | Pharmacy Report ---
Pharmacy Vanc AUC Short Note - Date of Service November 07, 2021 - Assessment & Plan Assessment 56 year old F receiving Vancomycin/Cefepime for treatment of osteomyelitis. Pertinent microbiologic data includes: HX of MRSA. Day # 3 of antimicrobial therapy. Plan Vancomycin * AUC/CELSO is the preferred PK/PD target for vancomycin * AUC guided dosing is effective and associated with decreased risk of nephrotoxicity compared to traditional trough targets * Trough this morning came back at ~11.5 mcg/ml - this is associated with AUC ~430. Plan to increase dosing to 1250 mg iv q 8 hrs in order to target higher AUC of 500-600. * Plan to recheck level in next 2-3 days to ensure stable * Will continue with lower infusion rate, as patient with hx of Redmans syndrome with vancomycin * ID consult pending Pharmacy will continue to follow and will adjust dose/frequency as necessary. Thank you.
--- NOTE | 2021-11-07 15:50 | Hospitalist Progress Note ---
Date of Service November 07, 2021 Assessment & Plan (1) Osteomyelitis: Plan: With a recent history of amputation of the right great and second toes for osteomyelitis and was on IV cefepime and vancomycin x6 weeks Now with recurrent severe pain in the right ankle following discontinuation of IV antibiotics Evidence of osteomyelitis in the right first and second metatarsals on x-ray -CRP and ESR are trending downward since previous-now normal - Orthopaedics consulted-trying to hold off on surgical intervention at this time - MRI of the foot and ankle with and without contrast completed on 11/05-shows extensive tenosynovitis of the right ankle and osteomyelitis of the first and second metatarsals -With a history of Enterobacter and Klebsiella as well as MRSA on prior cultures - Will continue Cefepime and Vancomycin while cultures pending -now with wound vacuum in place over ankle as per orthopedics, eventual skin grafting planned -Blood cultures-no growth to date -Continue pain control with IV Dilaudid and increase frequency to every 4 hours, continue oxycodone as needed, Tylenol as needed -ID consult pending -case management working on wound vac for home and hopeful for dc to home in 1-2 days after all arrangements made (2) Tenosynovitis of ankle: Plan: As above Appreciate orthopedic input Continue antibiotics Pain control f/u with Ortho after discharge (3) Hypomagnesemia: Plan: Replaced and now resolved (4) Hyponatremia: Plan: was low at 133, but now improved to 137 Ur Osm and Ur Na very high She is euvolemic Likely SIADH due to pain Pain better controlled now Follow BMP (5) Diabetes mellitus type 2, uncontrolled: Plan: Poorly controlled -with significant hyperglycemia in the first 2 days of admission now improved - Obviously this is not assisting with wound healing Continue basal bolus insulin Last hemoglobin A1c was 11.1% in 07/2021 and is now still quite high at 10.5% Diabetic diet encouraged improved control of glucose for wound healing (6) Hyperlipidemia: Plan: Not on statin lipids elevated on check on 10/20 - consider initiating statin therapy for overall risk reduction (7) PAD (peripheral artery disease): Plan: Continue asa but decrease to once daily as she is beyond the 4 weeks from her last ankle surgery control BP, glucose control (8) HTN (hypertension): Plan: Blood pressures controlled - Continue metoprolol, lisinopril Continue aspirin 81 but decrease down to once daily from twice daily which was the dose for her DVT prophylaxis from ankle surgery (9) Diabetic peripheral neuropathy: Plan: Continue her ropinirole for restless legs, nortriptyline With severe iron deficiency found-replace iron (10) Insomnia: Plan: Continue her Ambien- follow terminal superintendent use with PCP (11) Iron deficiency anemia: Plan: Severe iron deficiency with transferrin saturation 4%, ferritin severely low at 4 Gave IV Venofer but developed redness in the head and neck with normal vital signs and no signs of anaphylaxis Discontinued Venofer after partial dose administered Will use oral iron instead-addef ferrous gluconate 325mg po bid Add docusate to prevent constipation follow CBC as outpt f/u with PCP for ref to GI for EGD and colonoscopy, last colon 4 yrs ago Plan: DVT prophylaxis Heparin SQ Disposition-continued stay medical/surgical unit but dc to home once home wound vac arrangements made and awaiting ID consult for recommendations for IV abx choice and duration. PICC line in place Admission and Anticipated Discharge Date Admission Date: November 04, 2021 Subjective Feeling better today, got wound vac placed and got pain medicine prior. Now just tired. Appetite a little better. No BM in 2 days Had a reaction to venofer las tnight and cannot tolerate. Has taken po iron before no CP, SOB I discussed her care with wound care nurse Review of Systems Review of Systems: All systems reviewed & are unremarkable except as noted in HPI & below Physical Exam Constitutional: WD/WN, vitals as above Eyes: + anicteric sclerae Neck: trachea midline, no thyromegaly Respiratory: normal respiratory effort, lungs clear to auscultation Cardiovascular: RRR, no murmur, no edema Chest (Breasts): Chest: normal inspection of chest Gastrointestinal (Abdomen): normal bowel sounds, soft, nontender, no hepatosplenomegaly Musculoskeletal: Extremities: + extremities abnormal to inspection (Amputated right great and second toes, open wound right medial ankle), no cyanosis and no clubbing Skin: no rashes, warm and dry + wound (3 x 2 cm open wound right medial ankle with wound vac in place) Neurologic: moves all extremities and awake; no focal motor deficits Psychiatric: A+Ox3, euthymic affect Lymphatic: no lymphedema Results & Data Results & Data ([facility]) Vital Signs (Past 12 Hours) Vital Signs Temp Pulse Resp BP Pulse Ox 11/07/21 08:02 36.6 C 95 H 18 147/84 H 100 Laboratory Results 11/07/21 11/07/21 11/07/21 Range/Units 12:10 11:46 08:10 WBC (4.8-10.8) K/uL RBC (4.2-5.4) M/uL Hgb (12.0-16.0) g/dL Hct (37-47) % MCV (80-100) fL MCH (25-34) pg MCHC (32-36) g/dL RDW Std Deviation (36.4-46.3) fL RDW Coeff of Maria Del Carmen (11.5-14.5) % Plt Count (130-400) K/uL MPV (7.4-10.4) fL Immature Gran % (Auto) % Neut % (Auto) % Lymph % (Auto) % [place] % (Auto) % Eos % (Auto) % Baso % (Auto) % Neut # (Auto) (1.4-6.5) K/uL Lymph # (Auto) (1.2-3.4) K/uL [place] # (Auto) (0.11-0.59) K/uL Eos # (Auto) (0-0.5) K/uL Baso # (Auto) (0-0.2) K/uL Immature Gran # (Auto) (0.00-0.02) K/uL Sodium (136-145) mmol/L Potassium (3.5-5.1) mmol/L Chloride (98-107) mmol/L Carbon Dioxide (21-32) mmol/L Anion Gap (3-11) BUN (6-23) mg/dl Creatinine (0.6-1.2) mg/dl Est Cr Clr Drug Dosing ml/min Est GFR ( Amer) ml/min Est GFR (Non-Af Amer) ml/min BUN/Creatinine Ratio (10-20) Glucose (70-99(Fasting)) mg/dl POC Glucose 118 H 85 (70-99) mg/dl Estimat Average Glucose mg/dl Hemoglobin A1c (4.5-5.6) % Calcium (8.5-10.1) mg/dl Magnesium (1.7-2.4) mg/dl Urine Osmolality (500-800) mOsm/kg Ur Random Sodium mmol/L Vancomycin Trough 11.5 (10-20) mcg/ml 11/07/21 11/07/21 11/06/21 Range/Units 05:44 05:44 20:29 WBC 7.83 (4.8-10.8) K/uL RBC 4.16 L (4.2-5.4) M/uL Hgb 10.7 L (12.0-16.0) g/dL Hct 33.2 L (37-47) % MCV 79.8 L (80-100) fL MCH 25.7 (25-34) pg MCHC 32.2 (32-36) g/dL RDW Std Deviation 42.6 (36.4-46.3) fL RDW Coeff of Maria Del Carmen 14.5 (11.5-14.5) % Plt Count 267 (130-400) K/uL MPV 9.7 (7.4-10.4) fL Immature Gran % (Auto) 0.1 % Neut % (Auto) 59.8 % Lymph % (Auto) 23.9 % [place] % (Auto) 12.6 % Eos % (Auto) 3.3 % Baso % (Auto) 0.3 % Neut # (Auto) 4.68 (1.4-6.5) K/uL Lymph # (Auto) 1.87 (1.2-3.4) K/uL [place] # (Auto) 0.99 H (0.11-0.59) K/uL Eos # (Auto) 0.26 (0-0.5) K/uL Baso # (Auto) 0.02 (0-0.2) K/uL Immature Gran # (Auto) 0.01 (0.00-0.02) K/uL Sodium 137 (136-145) mmol/L Potassium 4.1 (3.5-5.1) mmol/L Chloride 103 (98-107) mmol/L Carbon Dioxide 29 (21-32) mmol/L Anion Gap 5 (3-11) BUN 11 (6-23) mg/dl Creatinine 0.37 L (0.6-1.2) mg/dl Est Cr Clr Drug Dosing 146.6 ml/min Est GFR ( Amer) 137.5 ml/min Est GFR (Non-Af Amer) 118.6 ml/min BUN/Creatinine Ratio 29.7 H (10-20) Glucose 77 (70-99(Fasting)) mg/dl POC Glucose 150 H (70-99) mg/dl Estimat Average Glucose mg/dl Hemoglobin A1c (4.5-5.6) % Calcium 8.8 (8.5-10.1) mg/dl Magnesium 1.8 (1.7-2.4) mg/dl Urine Osmolality (500-800) mOsm/kg Ur Random Sodium mmol/L Vancomycin Trough (10-20) mcg/ml 11/06/21 11/06/21 11/06/21 Range/Units 20:01 20:01 17:14 WBC (4.8-10.8) K/uL RBC (4.2-5.4) M/uL Hgb (12.0-16.0) g/dL Hct (37-47) % MCV (80-100) fL MCH (25-34) pg MCHC (32-36) g/dL RDW Std Deviation (36.4-46.3) fL RDW Coeff of Maria Del Carmen (11.5-14.5) % Plt Count (130-400) K/uL MPV (7.4-10.4) fL Immature Gran % (Auto) % Neut % (Auto) % Lymph % (Auto) % [place] % (Auto) % Eos % (Auto) % Baso % (Auto) % Neut # (Auto) (1.4-6.5) K/uL Lymph # (Auto) (1.2-3.4) K/uL [place] # (Auto) (0.11-0.59) K/uL Eos # (Auto) (0-0.5) K/uL Baso # (Auto) (0-0.2) K/uL Immature Gran # (Auto) (0.00-0.02) K/uL Sodium (136-145) mmol/L Potassium (3.5-5.1) mmol/L Chloride (98-107) mmol/L Carbon Dioxide (21-32) mmol/L Anion Gap (3-11) BUN (6-23) mg/dl Creatinine (0.6-1.2) mg/dl Est Cr Clr Drug Dosing ml/min Est GFR ( Amer) ml/min Est GFR (Non-Af Amer) ml/min BUN/Creatinine Ratio (10-20) Glucose (70-99(Fasting)) mg/dl POC Glucose 143 H (70-99) mg/dl Estimat Average Glucose mg/dl Hemoglobin A1c (4.5-5.6) % Calcium (8.5-10.1) mg/dl Magnesium (1.7-2.4) mg/dl Urine Osmolality 686 (500-800) mOsm/kg Ur Random Sodium 119 mmol/L Vancomycin Trough (10-20) mcg/ml 11/06/21 Range/Units 09:44 WBC (4.8-10.8) K/uL RBC (4.2-5.4) M/uL Hgb (12.0-16.0) g/dL Hct (37-47) % MCV (80-100) fL MCH (25-34) pg MCHC (32-36) g/dL RDW Std Deviation (36.4-46.3) fL RDW Coeff of Maria Del Carmen (11.5-14.5) % Plt Count (130-400) K/uL MPV (7.4-10.4) fL Immature Gran % (Auto) % Neut % (Auto) % Lymph % (Auto) % [place] % (Auto) % Eos % (Auto) % Baso % (Auto) % Neut # (Auto) (1.4-6.5) K/uL Lymph # (Auto) (1.2-3.4) K/uL [place] # (Auto) (0.11-0.59) K/uL Eos # (Auto) (0-0.5) K/uL Baso # (Auto) (0-0.2) K/uL Immature Gran # (Auto) (0.00-0.02) K/uL Sodium (136-145) mmol/L Potassium (3.5-5.1) mmol/L Chloride (98-107) mmol/L Carbon Dioxide (21-32) mmol/L Anion Gap (3-11) BUN (6-23) mg/dl Creatinine (0.6-1.2) mg/dl Est Cr Clr Drug Dosing ml/min Est GFR ( Amer) ml/min Est GFR (Non-Af Amer) ml/min BUN/Creatinine Ratio (10-20) Glucose (70-99(Fasting)) mg/dl POC Glucose (70-99) mg/dl Estimat Average Glucose 255 mg/dl Hemoglobin A1c 10.5 H (4.5-5.6) % Calcium (8.5-10.1) mg/dl Magnesium (1.7-2.4) mg/dl Urine Osmolality (500-800) mOsm/kg Ur Random Sodium mmol/L Vancomycin Trough (10-20) mcg/ml PG Care Time/CCT Total # of Minutes Spent Total Time Spent with Patient: Total time spent is greater than 50% in coordination of care (as documented) at patient's floor/unit and/or counseling patient: Coding Level of Care Code 66510 Subseq Hosp Care Lvl 2 Diagnoses Osteomyelitis M86.9 Laterality: right Osteomyelitis location: foot Osteomyelitis type: unspecified type Tenosynovitis of ankle M65.9 Hypomagnesemia E83.42 Hyponatremia E87.1 Diabetes mellitus type 2, uncontrolled E11.65 Hyperlipidemia E78.5 Hyperlipidemia type: unspecified PAD (peripheral artery disease) I73.9 HTN (hypertension) I10 Diabetic peripheral neuropathy E11.42 Insomnia G47.00 Iron deficiency anemia D50.9 (1) Hyperlipidemia Hyperlipidemia type: unspecified Qualified Code(s): E78.5 - Hyperlipidemia, unspecified (2) Osteomyelitis Laterality: right Osteomyelitis location: foot Osteomyelitis type: unspecified type Qualified Code(s): M86.9 - Osteomyelitis, unspecified
[2021-11-07] MEDS: VANCOMYCIN HCL 1,250 MG in SODIUM CHLORIDE 0.9% 250 ML IV SCH (19:58)
[2021-11-07] MEDS: NORTRIPTYLINE HCL 25 MG CAP PO SCH (20:01)
[2021-11-07] MEDS: rOPINIRole HCL 2 MG TABLET PO SCH (20:01)
[2021-11-07] MEDS: ZOLPIDEM TARTRATE 10 MG TAB PO PRN (20:08)
[2021-11-07] MEDS: INSULIN GLARGINE SOLOSTAR 100 UNITS/ML 3 ML PEN SQ SCH (21:29)
[2021-11-08] MEDS: HYDROmorphone INJ 0.5 MG/0.5 ML SYR IV PRN ×8 (00:48→22:17)
[2021-11-08] MEDS: oxyCODONE/ACETAMINOPHEN 5mg/325mg TAB PO PRN ×6 (01:55→22:16)
[2021-11-08] MEDS: CEFEPIME 2,000 MG in SYRINGE 0 ML IV SCH ×3 (03:19→19:24)
[2021-11-08] MEDS: VANCOMYCIN HCL 1,250 MG in SODIUM CHLORIDE 0.9% 250 ML IV SCH ×3 (03:20→19:24)
[2021-11-08] MEDS: ONDANSETRON INJ 2 MG/ML 2 ML VIAL IV PRN (04:58)
[2021-11-08 06:10] LABS: Mean Corpuscular Hemoglobin 25.4 pg (25-34); Mean Corpuscular Hgb Conc 32.4 g/dL (32-36); Mean Corpuscular Volume 78.5 fL (80-100); Mean Platelet Volume 10.1 fL (7.4-10.4); Platelet Count 253 K/uL (130-400); RDW Coefficient of Variation 14.3 % (11.5-14.5); RDW Standard Deviation 40.9 fL (36.4-46.3); Red Blood Count 4.33 M/uL (4.2-5.4); White Blood Count 7.27 K/uL (4.8-10.8)
[2021-11-08 06:33] LABS: Albumin Globulin Ratio 1.6 (0.9-2); Albumin Level 3.9 gm/dl (3.4-5.0); BUN Creatinine Ratio 33.3 (10-20); Bilirubin,Total 0.4 mg/dl (0.2-1.0); Calcium 9.2 mg/dl (8.5-10.1); Creatinine Clr Calc Pharmacy 139.1 ml/min; Est GFR (African American) 135.1 ml/min; Est GFR (Non-African American) 116.6 ml/min; Globulin 2.5 gm/dl (2.5-4.0); Magnesium 1.6 mg/dl (1.7-2.4); Potassium 4.1 mmol/L (3.5-5.1); Total Protein 6.4 gm/dl (6.0-8.3)
[2021-11-08 07:05] LABS: ALC (manual) 1.83 K/uL (1.2-3.4); ANC (manual) 4.94 K/uL (1.4-6.5); Eosinophils # (manual) 0.12 K/uL (0-0.5); Eosinophils % (manual) 1.7 %; Lymphocytes # (manual) 1.83 K/uL (1.2-3.4); Lymphocytes % (manual) 25.2 %; Monocytes # (manual) 0.38 K/uL (0.11-0.59); Monocytes % (manual) 5.2 %; Neutrophils # (manual) 4.94 K/uL (1.4-6.5); Neutrophils % (manual) 67.9 %; RBC Morphology Unremarkable
[2021-11-08] MEDS: lisinopril 10 MG TAB PO SCH (08:38)
[2021-11-08] MEDS: FERROUS GLUCONATE 324 MG TAB PO SCH ×2 (08:38→17:27)
[2021-11-08] MEDS: DOCUSATE SODIUM 100 MG CAP PO SCH ×2 (08:38→19:25)
[2021-11-08] MEDS: ASPIRIN 81 MG ECTAB PO SCH (08:38)
[2021-11-08] MEDS: INSULIN ASPART PER UNIT SC SCH ×4 (08:38→19:52)
[2021-11-08] MEDS: HEPARIN SOD 5,000 UNIT/0.5 ML VIAL SQ SCH ×2 (08:39→19:25)
[2021-11-08] MEDS: CYCLOBENZAPRINE HCL 10 MG TAB PO SCH ×3 (08:39→19:28)
[2021-11-08] MEDS: METOPROLOL SUCC 50MG EXT REL TAB PO SCH (08:39)
[2021-11-08] MEDS: LORazepam 1 MG TAB PO PRN ×3 (08:40→17:32)
[2021-11-08] MEDS: MAGNESIUM SULFATE / D5W 1 GM/100 ML BAG IV SCH ×2 (10:40→12:45)
--- NOTE | 2021-11-08 13:54 | Hospitalist Progress Note ---
Date of Service November 08, 2021 Assessment & Plan (1) Osteomyelitis: Plan: With a recent history of amputation of the right great and second toes for osteomyelitis as well as washout of ankle wound--> was on IV cefepime and vancomycin x6 weeks Now with recurrent severe pain in the right ankle following discontinuation of IV antibiotics and with surrounding cellulitis, drainage from wound Evidence of osteomyelitis in the right first and second metatarsals on x-ray -CRP and ESR are trending downward since previous-now normal - MRI of the foot and ankle with and without contrast completed on 11/05-shows extensive tenosynovitis of the right ankle and osteomyelitis of the first and second metatarsals - Orthopaedics consulted-trying to hold off on surgical intervention at this time -With a history of Enterobacter and Klebsiella as well as MRSA on prior cultures - Will continue Cefepime and Vancomycin empirically as no repeat cultures obtained from surface wound, BCxs NGTD -now with wound vacuum in place over ankle as per orthopedics, eventual skin grafting planned -Blood cultures-no growth to date -Continue pain control with IV Dilaudid for severe pain, continue oxycodone as needed, Tylenol as needed -ID consult pending to see about choice of abx and duration-suspect will be at least 4 weeks -case management working on wound vac for home and hopeful for dc to home in 1-2 days after all arrangements made -will need once weekly labs while on IV abx (2) Tenosynovitis of ankle: Plan: As above there is some slightl erythema spreading up anterior leg starting on 11/08, may be since placing wound vac? Outlined with marker today and will follow Appreciate orthopedic input Continue antibiotics Pain control f/u with Ortho after discharge (3) Hypomagnesemia: Plan: continue to replace follow BMP, mag (4) Hyponatremia: Plan: was low at 133, but now improved to normal Ur Osm and Ur Na very high She is euvolemic Likely SIADH due to pain Pain better controlled now Follow BMP (5) Diabetes mellitus type 2, uncontrolled: Plan: Poorly controlled -with significant hyperglycemia in the first 2 days of admission now improved - Obviously this is not assisting with wound healing Continue basal bolus insulin Last hemoglobin A1c was 11.1% in 07/2021 and is now still quite high at 10.5% Diabetic diet encouraged improved control of glucose for wound healing (6) Hyperlipidemia: Plan: Not on statin lipids elevated on check on 10/20 - consider initiating statin therapy for overall risk reduction -defer to PCP (7) PAD (peripheral artery disease): Plan: Continue asa but decrease to once daily as she is beyond the 4 weeks from her last ankle surgery control BP, glucose control (8) HTN (hypertension): Plan: Blood pressures controlled - Continue metoprolol, lisinopril Continue aspirin 81 but decreased down to once daily from twice daily which was the dose for her DVT prophylaxis from ankle surgery (9) Diabetic peripheral neuropathy: Plan: Continue her ropinirole for restless legs, nortriptyline With severe iron deficiency found-replace iron (10) Insomnia: Plan: Continue her Ambien- 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 (11) Iron deficiency anemia: Plan: Severe iron deficiency with transferrin saturation 4%, ferritin severely low at 4 Gave IV Venofer but developed redness in the head and neck with normal vital signs and no signs of anaphylaxis during the infusion Discontinued Venofer after partial dose administered Will use oral iron instead-added ferrous gluconate 325mg po bid Added docusate to prevent constipation follow CBC as outpt f/u with PCP for ref to GI for EGD and colonoscopy, last colon 4 yrs ago Plan: DVT prophylaxis Heparin SQ Disposition-continued stay medical/surgical unit but dc to home once home wound vac arrangements made and awaiting ID consult for recommendations for IV abx choice and duration. PICC line in place Admission and Anticipated Discharge Date Admission Date: November 04, 2021 Subjective Worried today as she noticed redness spreading up her leg from her ankle and has more pain in that area of the leg today. No fevers. No BM. Appetite slightly improved today. Is ambulating independently with her wound vac in [employer] Review of Systems Review of Systems: All systems reviewed & are unremarkable except as noted in HPI & below Physical Exam Constitutional: WD/WN, vitals as above Eyes: + anicteric sclerae Neck: trachea midline, no thyromegaly Respiratory: normal respiratory effort, lungs clear to auscultation Cardiovascular: RRR, no murmur, no edema Chest (Breasts): Chest: normal inspection of chest Gastrointestinal (Abdomen): normal bowel sounds, soft, nontender, no hepat osplenomegaly Musculoskeletal: Extremities: + extremities abnormal to inspection (Amputated right great and second toes, open wound right medial ankle), no cyanosis and no clubbing Skin: no rashes, warm and dry + wound (3 x 2 cm open wound right medial ankle with wound vac in place) and + erythema (surrounding R ankle wound and very mild spread up anterior leg-outlined) Neurologic: moves all extremities and awake; no focal motor deficits Psychiatric: A+Ox3, euthymic affect Lymphatic: no lymphedema Results & Data Results & Data ([facility]) Vital Signs (Past 12 Hours) Vital Signs Temp Pulse Resp BP Pulse Ox 11/08/21 07:47 36.5 C 84 16 153/80 H 98 Laboratory Results 11/08/21 11/08/21 11/08/21 Range/Units 12:04 08:05 05:34 WBC (4.8-10.8) K/uL RBC (4.2-5.4) M/uL Hgb (12.0-16.0) g/dL Hct (37-47) % MCV (80-100) fL MCH (25-34) pg MCHC (32-36) g/dL RDW Std Deviation (36.4-46.3) fL RDW Coeff of Maria Del Carmen (11.5-14.5) % Plt Count (130-400) K/uL MPV (7.4-10.4) fL Neutrophils % (Manual) % Lymphocytes % (Manual) % Monocytes % (Manual) % Eosinophils % (Manual) % Neutrophils # (Manual) (1.4-6.5) K/uL Total Absolute Neuts (1.4-6.5) K/uL Lymphocytes # (Manual) (1.2-3.4) K/uL Total Abs Lymphocytes (1.2-3.4) K/uL Monocytes # (Manual) (0.11-0.59) K/uL Eosinophils # (Manual) (0-0.5) K/uL RBC Morphology Sodium 136 (136-145) mmol/L Potassium 4.1 (3.5-5.1) mmol/L Chloride 101 (98-107) mmol/L Carbon Dioxide 29 (21-32) mmol/L Anion Gap 6 (3-11) BUN 13 (6-23) mg/dl Creatinine 0.39 L (0.6-1.2) mg/dl Est Cr Clr Drug Dosing 139.1 ml/min Est GFR ( Amer) 135.1 ml/min Est GFR (Non-Af Amer) 116.6 ml/min BUN/Creatinine Ratio 33.3 H (10-20) Glucose 117 H (70-99(Fasting)) mg/dl POC Glucose 130 H 136 H (70-99) mg/dl Calcium 9.2 (8.5-10.1) mg/dl Magnesium 1.6 L (1.7-2.4) mg/dl Total Bilirubin 0.4 (0.2-1.0) mg/dl AST 14 (13-39) U/L ALT 20 (7-52) U/L Alkaline Phosphatase 102 (34-104) U/L Total Protein 6.4 (6.0-8.3) gm/dl Albumin 3.9 (3.4-5.0) gm/dl Globulin 2.5 (2.5-4.0) gm/dl Albumin/Globulin Ratio 1.6 (0.9-2) 11/08/21 11/07/21 11/07/21 Range/Units 05:34 20:11 16:45 WBC 7.27 (4.8-10.8) K/uL RBC 4.33 (4.2-5.4) M/uL Hgb 11.0 L (12.0-16.0) g/dL Hct 34.0 L (37-47) % MCV 78.5 L (80-100) fL MCH 25.4 (25-34) pg MCHC 32.4 (32-36) g/dL RDW Std Deviation 40.9 (36.4-46.3) fL RDW Coeff of Maria Del Carmen 14.3 (11.5-14.5) % Plt Count 253 (130-400) K/uL MPV 10.1 (7.4-10.4) fL Neutrophils % (Manual) 67.9 % Lymphocytes % (Manual) 25.2 % Monocytes % (Manual) 5.2 % Eosinophils % (Manual) 1.7 % Neutrophils # (Manual) 4.94 (1.4-6.5) K/uL Total Absolute Neuts 4.94 (1.4-6.5) K/uL Lymphocytes # (Manual) 1.83 (1.2-3.4) K/uL Total Abs Lymphocytes 1.83 (1.2-3.4) K/uL Monocytes # (Manual) 0.38 (0.11-0.59) K/uL Eosinophils # (Manual) 0.12 (0-0.5) K/uL RBC Morphology Unremarkable Sodium (136-145) mmol/L Potassium (3.5-5.1) mmol/L Chloride (98-107) mmol/L Carbon Dioxide (21-32) mmol/L Anion Gap (3-11) BUN (6-23) mg/dl Creatinine (0.6-1.2) mg/dl Est Cr Clr Drug Dosing ml/min Est GFR ( Amer) ml/min Est GFR (Non-Af Amer) ml/min BUN/Creatinine Ratio (10-20) Glucose (70-99(Fasting)) mg/dl POC Glucose 168 H 144 H (70-99) mg/dl Calcium (8.5-10.1) mg/dl Magnesium (1.7-2.4) mg/dl Total Bilirubin (0.2-1.0) mg/dl AST (13-39) U/L ALT (7-52) U/L Alkaline Phosphatase (34-104) U/L Total Protein (6.0-8.3) gm/dl Albumin (3.4-5.0) gm/dl Globulin (2.5-4.0) gm/dl Albumin/Globulin Ratio (0.9-2) PG Care Time/CCT Total # of Minutes Spent Total Time Spent with Patient: Total time spent is greater than 50% in coordination of care (as documented) at patient's floor/unit and/or counseling patient: Coding Level of Care Code 85950 Subseq Hosp Care Lvl 2 Diagnoses Osteomyelitis M86.9 Laterality: right Osteomyelitis location: foot Osteomyelitis type: unspecified type Tenosynovitis of ankle M65.9 Hypomagnesemia E83.42 Hyponatremia E87.1 Diabetes mellitus type 2, uncontrolled E11.65 Hyperlipidemia E78.5 Hyperlipidemia type: unspecified PAD (peripheral artery disease) I73.9 HTN (hypertension) I10 Diabetic peripheral neuropathy E11.42 Insomnia G47.00 Iron deficiency anemia D50.9 (1) Osteomyelitis Laterality: right Osteomyelitis location: foot Osteomyelitis type: unspecified type Qualified Code(s): M86.9 - Osteomyelitis, unspecified (2) Hyperlipidemia Hyperlipidemia type: unspecified Qualified Code(s): E78.5 - Hyperlipidemia, unspecified
[2021-11-08] MEDS: NORTRIPTYLINE HCL 25 MG CAP PO SCH (19:26)
[2021-11-08] MEDS: rOPINIRole HCL 2 MG TABLET PO SCH (19:27)
[2021-11-08] MEDS: ZOLPIDEM TARTRATE 10 MG TAB PO PRN (19:44)
[2021-11-08] MEDS: INSULIN GLARGINE SOLOSTAR 100 UNITS/ML 3 ML PEN SQ SCH (19:53)
[2021-11-09] MEDS: oxyCODONE/ACETAMINOPHEN 5mg/325mg TAB PO PRN ×4 (00:12→15:29)
[2021-11-09] MEDS: HYDROmorphone INJ 0.5 MG/0.5 ML SYR IV PRN ×8 (01:36→23:22)
[2021-11-09] MEDS: CEFEPIME 2,000 MG in SYRINGE 0 ML IV SCH ×3 (04:11→20:19)
[2021-11-09] MEDS: VANCOMYCIN HCL 1,250 MG in SODIUM CHLORIDE 0.9% 250 ML IV SCH ×3 (04:11→20:22)
[2021-11-09 06:48] LABS: Basophils # (auto) 0.06 K/uL (0-0.2); Basophils % (auto) 0.7 %; Eosinophils # (auto) 0.45 K/uL (0-0.5); Eosinophils % (auto) 5.6 %; Hematocrit (blood only) 37.5 % (37-47); Hemoglobin 11.8 g/dL (12.0-16.0); Immature Granulocytes # (auto) 0.01 K/uL (0.00-0.02); Immature Granulocytes % (auto) 0.1 %; Lymphocytes # (auto) 1.97 K/uL (1.2-3.4); Lymphocytes % (auto) 24.4 %; Mean Corpuscular Hemoglobin 25.1 pg (25-34); Mean Corpuscular Hgb Conc 31.5 g/dL (32-36); Mean Corpuscular Volume 79.8 fL (80-100); Monocytes # (auto) 0.98 K/uL (0.11-0.59); Monocytes % (auto) 12.1 %; Neutrophils # (auto) 4.61 K/uL (1.4-6.5); Neutrophils % (auto) 57.1 %; Platelet Count 262 K/uL (130-400); RDW Coefficient of Variation 14.4 % (11.5-14.5); RDW Standard Deviation 42.2 fL (36.4-46.3); White Blood Count 8.08 K/uL (4.8-10.8)
[2021-11-09 07:17] LABS: Albumin Globulin Ratio 1.5 (0.9-2); Albumin Level 4.3 gm/dl (3.4-5.0); BUN Creatinine Ratio 19.4 (10-20); Bilirubin,Total 0.3 mg/dl (0.2-1.0); C Reactive Protein 0.81 mg/dl (0-0.5); Calcium 9.3 mg/dl (8.5-10.1); Creatinine Clr Calc Pharmacy 87.5 ml/min; Est GFR (Non-African American) 100.1 ml/min; Globulin 2.9 gm/dl (2.5-4.0); Magnesium 1.8 mg/dl (1.7-2.4); Potassium 4.1 mmol/L (3.5-5.1); Total Protein 7.2 gm/dl (6.0-8.3)
[2021-11-09] MEDS: HEPARIN SOD 5,000 UNIT/0.5 ML VIAL SQ SCH ×2 (07:41→20:34)
[2021-11-09] MEDS: ASPIRIN 81 MG ECTAB PO SCH (07:43)
[2021-11-09] MEDS: lisinopril 10 MG TAB PO SCH (07:43)
[2021-11-09] MEDS: FERROUS GLUCONATE 324 MG TAB PO SCH ×2 (07:44→18:17)
[2021-11-09] MEDS: METOPROLOL SUCC 50MG EXT REL TAB PO SCH (07:44)
[2021-11-09] MEDS: DOCUSATE SODIUM 100 MG CAP PO SCH ×2 (07:44→20:33)
[2021-11-09] MEDS: LORazepam 1 MG TAB PO PRN ×2 (07:44→13:31)
[2021-11-09] MEDS: CYCLOBENZAPRINE HCL 10 MG TAB PO SCH ×3 (07:44→20:32)
[2021-11-09] MEDS: INSULIN ASPART PER UNIT SC SCH ×4 (09:31→21:04)
--- NOTE | 2021-11-09 09:43 | XRay Report ---
XR chest 1V portable CLINICAL HISTORY: PICC tip confirmation. COMPARISON STUDY: 10/04/2021 TECHNIQUE: 1 view of the chest FINDINGS: Single frontal view of the chest demonstrates the cardiomediastinal silhouette to be within normal li mits. A PICC line has been placed on the right side with its tip extending into the right atrium. The re is no evidence for pneumothorax. The lungs are clear of alveolar opacities. There is no evidence f or pleural effusion. There is no evidence for vascular congestion. There is no acute osseous patholog y. IMPRESSION: 1. No acute cardiopulmonary disease. 2. Tip of PICC line extends into the right atrium. ACT 112: Negative or not required by law. Electronically signed by: Jaylon Connell M.D. 11/09/2021 9:42 AM
--- NOTE | 2021-11-09 10:56 | XRay Report ---
XR chest 1V portable at 10:14 AM CLINICAL HISTORY: right PICC tip placement after adjustment, 3 cm. COMPARISON STUDY: 11/09/2021 and 9:13 AM TECHNIQUE: 1 view of the chest FINDINGS: Single frontal view of the chest demonstrates the cardiomediastinal silhouette to be within normal li mits. Compared to the previous examination, the PICC line has been retracted and is now within the di stal SVC. The lungs are clear of alveolar opacities. There is no evidence for pleural effusion. There is no evidence for vascular congestion. There is no acute osseous pathology. IMPRESSION: 1. No acute cardiopulmonary disease. 2. Retraction of the PICC line so that its tip is now in the distal SVC. ACT 112: Negative or not required by law. Electronically signed by: Jaylon Connell M.D. 11/09/2021 10:55 AM
[2021-11-09] MEDS ORDERED: VANCOMYCIN TROUGH ONE ×2 (11:30→19:30)
--- NOTE | 2021-11-09 13:11 | Pharmacy Report ---
Pharmacy Vanc AUC Short Note - Date of Service November 09, 2021 - Assessment & Plan Assessment 56 year old F receiving vancomycin/cefepime for treatment of bone and joint infection. Pertinent microbiologic data includes: N/A. Day # 6 of antimicrobial therapy. Plan Vancomycin * AUC/CELSO is the preferred PK/PD target for vancomycin * AUC guided dosing is effective and associated with decreased risk of nephrotoxicity compared to traditional trough targets * Trough level of 12.9 mcg/mL is predicted to achieve target AUC/CELSO of 400-600 mg/L.hr and may be associated with a 15 % risk of nephrotoxicity * Continue dose of 1250 mg IV every 8 hours * Trough to be ordered based upon duration. Pharmacy will continue to follow and will adjust dose/frequency as necessary. Thank you.
--- NOTE | 2021-11-09 20:12 | Hospitalist Progress Note ---
Date of Service November 09, 2021 Assessment & Plan (1) Osteomyelitis: Plan: With a recent history of amputation of the right great and second toes for osteomyelitis as well as washout of ankle wound--> was on IV cefepime and vancomycin x6 weeks Now with recurrent severe pain in the right ankle following discontinuation of IV antibiotics and with surrounding cellulitis, drainage from wound Evidence of osteomyelitis in the right first and second metatarsals on x-ray -CRP and ESR are trending downward since previous-now normal - MRI of the foot and ankle with and without contrast completed on 11/05-shows extensive tenosynovitis of the right ankle and osteomyelitis of the first and second metatarsals - Orthopaedics consulted-trying to hold off on surgical intervention at this time -With a history of Enterobacter and Klebsiella as well as MRSA on prior cultures - Will continue Cefepime and Vancomycin empirically as no repeat cultures obtained from surface wound, BCxs NGTD -now with wound vacuum in place over ankle as per orthopedics, eventual skin grafting planned -Blood cultures-no growth to date -Continue pain control with IV Dilaudid for severe pain, continue oxycodone as needed, Tylenol as needed -ID consult continue vanco/cefepime -case management working on wound vac for home and hopeful for dc to home tomorrow in AM. -will need once weekly labs while on IV abx (2) Tenosynovitis of ankle: Plan: As above there is some slightl erythema spreading up anterior leg starting on 11/08, may be since placing wound vac? Outlined with marker today and will follow Appreciate orthopedic input Continue antibiotics Pain control f/u with Ortho after discharge (3) Hypomagnesemia: Plan: continue to replace follow BMP, mag (4) Hyponatremia: Plan: was low at 133, but now improved to normal Ur Osm and Ur Na very high She is euvolemic Likely SIADH due to pain Pain better controlled now Follow BMP (5) Diabetes mellitus type 2, uncontrolled: Plan: Poorly controlled -with significant hyperglycemia in the first 2 days of admission now improved - Obviously this is not assisting with wound healing Continue basal bolus insulin Last hemoglobin A1c was 11.1% in 07/2021 and is now still quite high at 10.5% Diabetic diet encouraged improved control of glucose for wound healing (6) Hyperlipidemia: Plan: Not on statin lipids elevated on check on 10/20 - consider initiating statin therapy for overall risk reduction -defer to PCP (7) PAD (peripheral artery disease): Plan: Continue asa but decrease to once daily as she is beyond the 4 weeks from her last ankle surgery control BP, glucose control (8) HTN (hypertension): Plan: Blood pressures controlled - Continue metoprolol, lisinopril Continue aspirin 81 but decreased down to once daily from twice daily which was the dose for her DVT prophylaxis from ankle surgery (9) Diabetic peripheral neuropathy: Plan: Continue her ropinirole for restless legs, nortriptyline With severe iron deficiency found-replace iron (10) Insomnia: Plan: Continue her Ambien- 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 (11) Iron deficiency anemia: Plan: Severe iron deficiency with transferrin saturation 4%, ferritin severely low at 4 Gave IV Venofer but developed redness in the head and neck with normal vital signs and no signs of anaphylaxis during the infusion Discontinued Venofer after partial dose administered Will use oral iron instead-added ferrous gluconate 325mg po bid Added docusate to prevent constipation follow CBC as outpt f/u with PCP for ref to GI for EGD and colonoscopy, last colon 4 yrs ago Plan: DVT prophylaxis Heparin SQ Disposition-continued stay medical/surgical unit but dc to home once home wound vac arrangements made and awaiting ID consult for recommendations for IV abx choice and duration. PICC line in place Admission and Anticipated Discharge Date Admission Date: November 04, 2021 Subjective 56 yo female reports no new symtoms. Patient reports feeling better. Review of Systems Review of Systems: All systems reviewed & are unremarkable except as noted in HPI & below Physical Exam Constitutional: WD/WN, vitals as above Eyes: + anicteric sclerae Neck: trachea midline, no thyromegaly Respiratory: normal respiratory effort, lungs clear to auscultation Cardiovascular: RRR, no murmur, no edema Chest (Breasts): Chest: normal inspection of chest Gastrointestinal (Abdomen): normal bowel sounds, soft, nontender, no hepatosplenomegaly Musculoskeletal: Extremities: + extremities abnormal to inspection (Amputated right great and second toes, open wound right medial ankle), no cyanosis and no clubbing Skin: no rashes, warm and dry + wound (3 x 2 cm open wound right medial ankle with wound vac in place) and + erythema (surrounding R ankle wound and very mild spread up anterior leg-outlined) Neurologic: moves all extremities and awake; no focal motor deficits Psychiatric: A+Ox3, euthymic affect Lymphatic: no lymphedema Results & Data Results & Data ([facility]) Vital Signs (Past 12 Hours) Vital Signs Temp Pulse Resp BP Pulse Ox 11/09/21 15:51 36.8 C 75 16 144/86 H 97 PG Care Time/CCT Total # of Minutes Spent Total Time Spent with Patient: Total time spent is greater than 50% in coordination of care (as documented) at patient's floor/unit and/or counseling patient: Coding Level of Care Code 40642 Subseq Hosp Care Lvl 2 Diagnoses Osteomyelitis M86.9 Laterality: right Osteomyelitis location: foot Osteomyelitis type: unspecified type Tenosynovitis of ankle M65.9 Hypomagnesemia E83.42 Hyponatremia E87.1 Diabetes mellitus type 2, uncontrolled E11.65 Hyperlipidemia E78.5 Hyperlipidemia type: unspecified PAD (peripheral artery disease) I73.9 HTN (hypertension) I10 Diabetic peripheral neuropathy E11.42 Insomnia G47.00 Iron deficiency anemia D50.9 (1) Osteomyelitis Laterality: right Osteomyelitis location: foot Osteomyelitis type: unspecified type Qualified Code(s): M86.9 - Osteomyelitis, unspecified (2) Hyperlipidemia Hyperlipidemia type: unspecified Qualified Code(s): E78.5 - Hyperlipidemia, unspecified
[2021-11-09] MEDS: rOPINIRole HCL 2 MG TABLET PO SCH (20:31)
[2021-11-09] MEDS: NORTRIPTYLINE HCL 25 MG CAP PO SCH (20:32)
[2021-11-09] MEDS: INSULIN GLARGINE SOLOSTAR 100 UNITS/ML 3 ML PEN SQ SCH (21:03)
[2021-11-09] MEDS: ZOLPIDEM TARTRATE 10 MG TAB PO PRN (21:04)
[2021-11-10] MEDS: HYDROmorphone INJ 0.5 MG/0.5 ML SYR IV PRN ×3 (02:45→09:58)
[2021-11-10] MEDS: CEFEPIME 2,000 MG in SYRINGE 0 ML IV SCH (03:58)
[2021-11-10] MEDS: VANCOMYCIN HCL 1,250 MG in SODIUM CHLORIDE 0.9% 250 ML IV SCH (03:59)
[2021-11-10] MEDS: oxyCODONE/ACETAMINOPHEN 5mg/325mg TAB PO PRN ×3 (04:06→11:53)
[2021-11-10 06:49] LABS: Creatinine Clr Calc Pharmacy 123.3 ml/min; Est GFR (African American) 129.9 ml/min; Est GFR (Non-African American) 112.1 ml/min
[2021-11-10] MEDS: METOPROLOL SUCC 50MG EXT REL TAB PO SCH (08:16)
[2021-11-10] MEDS: ASPIRIN 81 MG ECTAB PO SCH (08:16)
[2021-11-10] MEDS: DOCUSATE SODIUM 100 MG CAP PO SCH (08:16)
[2021-11-10] MEDS: lisinopril 10 MG TAB PO SCH (08:16)
[2021-11-10] MEDS: HEPARIN SOD 5,000 UNIT/0.5 ML VIAL SQ SCH (08:17)
[2021-11-10] MEDS: FERROUS GLUCONATE 324 MG TAB PO SCH (08:17)
[2021-11-10] MEDS: CYCLOBENZAPRINE HCL 10 MG TAB PO SCH (08:17)
[2021-11-10] MEDS: INSULIN ASPART PER UNIT SC SCH ×2 (08:21→13:00)
[2021-11-10] MEDS: ONDANSETRON INJ 2 MG/ML 2 ML VIAL IV PRN (08:29)
--- NOTE | 2021-11-15 22:46 | Discharge Summary ---
Date of Service November 10, 2021 Admission HPI Per Admitting Provider 56 YOF with past medical history of: poorly controlled type 2 diabetes mellitus, peripheral artery disease, atypical chest pain, and osteomyelitis of the right foot with surgical intervention 08/2021 as noted below who presents with worsening pain in her foot and ankle with acute osteomyelitis that required resection she had medial right ankle debrided as well with metatarsal head resection and second metatarsal resection 09/10/21- she was admitted in 10/04 for worsening of her symptoms with foot pain and redness- she underwent right foot abscess drainage and debridement as well as right medial ankle irrigation and debridement, and tenosynovectomy. She then had a PICC line placed underwent course of antibiotics for Enterobacter cloacae and Klebsiella oxytoca and was discharged on 10/04/21 with IV antibiotics that consisted of 2 weeks of Vancomycin and Cefepime for 6 weeks. This was stopped on Sunday with discontinuation of her PICC line and transition to Ciprofloxacin- notes are unclear who was managing this as outpatient. She came in to the EMD today for complaints of worsening of her pain that is again located in the sole of her midfoot, with pain at her first and second metatarsal site, with radiation to the Achilles and mid way up to her calf, but not extending into her calf. There is no evidence of cellulitis, and the drainage from the wound reported by the patient has increased to serous-sanguinous without kailash purulence. She has also been afebrile. Blood cultures were sent by [facility] with initiation of Cefepime and Vancomycin, wound culture of the medial aspect of her ankle will now be obtained. Her WBC are stable with a NLR of 4:1 as well as her PCT <0.05 and CRP downtrending to 0.81 from 0.97. Will obtain MRI of her foot, consult orthopaedics, continue antibiotics in form of Cefepime and Vancomycin while cultures are pending. She does have History of MRSA in Aug. She has also had vascular evaluation done in August with lower extremity artery 09/03: No hemodynamically significant stenosis. Right NATHAN normal, left NATHAN moderately decreased. Currently does not appear to be overly infected or septic, will need glucose control. COVID test on admission is: NEGATIVE Principal Diagnosis osteomyelitis Discharge Exam Constitutional: WD/WN, vitals as above Eyes: + anicteric sclerae Neck: trachea midline, no thyromegaly Respiratory: normal respiratory effort, lungs clear to auscultation Cardiovascular: RRR, no murmur, no edema Chest (Breasts): Chest: normal inspection of chest Gastrointestinal (Abdomen): normal bowel sounds, soft, nontender, no hepatosplenomegaly Musculoskeletal: Extremities: + extremities abnormal to inspection (Amputated right great and second toes, open wound right medial ankle), no cyanosis and no clubbing Skin: no rashes, warm and dry + wound (3 x 2 cm open wound right medial ankle with wound vac in place) and + erythema (surrounding R ankle wound and very mild spread up anterior leg-outlined) Neurologic: moves all extremities and awake; no focal motor deficits Psychiatric: A+Ox3, euthymic affect Lymphatic: no lymphedema Discharge Data Allergies Allergy/AdvReac Type Severity Reaction Status Date / Time morphine Allergy Severe blisters Verified 11/04/21 11:13 in mouth Sulfa (Sulfonamide Allergy Severe rash/swelli Verified 11/04/21 11:13 Antibiotics) ng iron [From Venofer] Allergy Intermediate Hypertensio Verified 11/08/21 09:32 n vancomycin Allergy Intermediate YULIYA Verified 11/07/21 13:16 SYNDROME---CAN TAKE IF VERY SLOW DRIP. Consultations 11/04/21 12:47 ED Decision to Admit Stat 11/04/21 15:49 Consult Orthopedic Surgery Routine 11/05/21 12:03 Consult Infectious Diseases Routine Ordered Studies 11/05/21 09:06 MR ankle RT wo/w con Routine MR foot RT wo/w con Routine Diabetes Follow up Diabetes Follow-up Needed for HgbA1c >9% Hospital Course (1) Osteomyelitis: With a recent history of amputation of the right great and second toes for osteomyelitis as well as washout of ankle wound--> was on IV cefepime and vancomycin x6 weeks Now with recurrent severe pain in the right ankle following discontinuation of IV antibiotics and with surrounding cellulitis, drainage from wound Evidence of osteomyelitis in the right first and second metatarsals on x-ray -CRP and ESR are trending downward since previous-now normal - MRI of the foot and ankle with and without contrast completed on 11/05-shows extensive tenosynovitis of the right ankle and osteomyelitis of the first and second metatarsals - Orthopaedics consulted-trying to hold off on surgical intervention at this time -With a history of Enterobacter and Klebsiella as well as MRSA on prior cultures - Will continue Cefepime and Vancomycin empirically as no repeat cultures obtained from surface wound, BCxs NGTD -now with wound vacuum in place over ankle as per orthopedics, eventual skin grafting planned -Blood cultures-no growth to date -Continue pain control with IV Dilaudid for severe pain, continue oxycodone as needed, Tylenol as needed -ID consult continue vanco/cefepime -case management: wound vac for home and dc to home -will need once weekly labs while on IV abx. -will continue cefepime and vanco -continue antibiotics until 11/19/21 (2) Tenosynovitis of ankle: As above there is some slightl erythema spreading up anterior leg starting on 11/08, may be since placing wound vac? Outlined with marker today and will follow Appreciate orthopedic input Continue antibiotics Pain control f/u with Ortho after discharge (3) Hypomagnesemia: continue to replace follow BMP, mag (4) Hyponatremia: was low at 133, but now improved to normal Ur Osm and Ur Na very high She is euvolemic Likely SIADH due to pain Pain better controlled now Follow BMP (5) Diabetes mellitus type 2, uncontrolled: Poorly controlled -with significant hyperglycemia in the first 2 days of admission now improved - Obviously this is not assisting with wound healing Continue basal bolus insulin Last hemoglobin A1c was 11.1% in 07/2021 and is now still quite high at 10.5% Diabetic diet encouraged improved control of glucose for wound healing (6) Hyperlipidemia: Not on statin lipids elevated on check on 10/20 - consider initiating statin therapy for overall risk reduction -defer to PCP (7) PAD (peripheral artery disease): Continue asa but decrease to once daily as she is beyond the 4 weeks from her last ankle surgery control BP, glucose control (8) HTN (hypertension): Blood pressures controlled - Continue metoprolol, lisinopril Continue aspirin 81 but decreased down to once daily from twice daily which was the dose for her DVT prophylaxis from ankle surgery (9) Diabetic peripheral neuropathy: Continue her ropinirole for restless legs, nortriptyline With severe iron deficiency found-replace iron (10) Insomnia: Continue her Ambien- follow [facility] use with PCP (11) Iron deficiency anemia: Severe iron deficiency with transferrin saturation 4%, ferritin severely low at 4 Gave IV Venofer but developed redness in the head and neck with normal vital signs and no signs of anaphylaxis during the infusion Discontinued Venofer after partial dose administered Will use oral iron instead-added ferrous gluconate 325mg po bid Added docusate to prevent constipation follow CBC as outpt f/u with PCP for ref to GI for EGD and colonoscopy, last colon 4 yrs ago DVT prophylaxis Heparin SQ Disposition-continued stay medical/surgical unit but dc to home once home wound vac arrangements made and awaiting ID consult for recommendations for IV abx choice and duration. PICC line in place Total Time Total Time Spent Total Time Spent (In Minutes): 32 Discharge Plan Discharge Items Patient Disposition: Home - Home Health Services Reason For Visit: WOUND INFECTION Discharge Diagnosis: wound infection Activity: Resume your previous activity Non-emergency contact: Primary Care Provider Call non-emergency contact if: you have any medication questions Follow-up/Referrals: Vince Vernon, [Primary Care Provider] - (LEFT A MESSAGE AT PCP OFFICE FOR A HOSPITAL FOLLOW UP VISIT.) Diet: Carb Consistent or DM2 Addtl Attending Provider Instructions: Continue antibiotics until 11/19/21 Continue with wound care Pending Studies at Discharge: No Stand-Alone Forms: My [facility] Disconnect, Smoking Cessation Medications and DC Order Prescriptions: New vancomycin 1,000 mg recon soln 1.25 g IV Q12H Qty: 20 RF: 0 cefepime in dextrose,iso-osm 2 gram/100 mL piggyback 2 g IV Q8H 10 Days Qty: 3000 RF: 0 Continued (DME) lancets [OneTouch UltraSoft Lancets] Misc See Rx Instructions .ROUTE .MEDSUPPLY Qty: 100 RF: 0 albuterol sulfate [Proventil HFA] 90 mcg/actuation HFA aerosol inhaler 1 puff inhalation QID PRN (Reason: Shortness Of Breath) RF: 0 metoprolol succinate [Toprol XL] 50 mg tablet extended release 24 hr 50 mg PO QAM RF: 0 metformin 500 mg tablet 500 mg PO BID Qty: 60 RF: 0 Basaglar KwikPen U-100 Insulin 100 unit/mL (3 mL) insulin pen 15 unit SUBCUT HS Qty: 1 RF: 0 insulin lispro [Humalog KwikPen Insulin] 100 unit/mL insulin pen 3 unit SUBCUT TIDM Qty: 1 RF: 0 cyclobenzaprine 10 mg Tablet 10 mg PO TID RF: 0 ropinirole 2 mg Tablet 4 mg PO HS RF: 0 zolpidem [Ambien] 10 mg Tablet 10 mg PO HS RF: 0 nortriptyline [Pamelor] 50 mg Capsule 100 mg PO HS RF: 0 lisinopril 10 mg Tablet 10 mg PO QAM Qty: 30 RF: 0 aspirin [Aspirin Low Dose] 81 mg Tablet,Delayed Release (Dr/Ec) 81 mg PO BID Qty: 60 RF: 0 lorazepam [Ativan] 1 mg tablet 1 mg PO TID PRN (Reason: Anxiety) RF: 0 oxycodone-acetaminophen [Percocet] 5-325 mg Tablet 1 - 2 tab PO Q4H PRN (Reason: breakthrough pain) Qty: 20 RF: 0 Discontinued ciprofloxacin HCl 500 mg tablet 500 mg PO Q12H RF: 0 Discharge Orders: Discharge Order (Routine); Ordered 11/10/21 Ordered By: Ricardo Nava/Other Patient Handouts: Nutrition for Wound Healing, Managing Type 2 Diabetes, Central Venous Access Device, Caring for Your Central Vein Access, PICC, Managing Diabetes When You're Ill Admission Data Admit Date/Time: 11/04/21 13:04 Attending Provider: Ricardo Hernadez Admit Provider: Sangeeta Ko Primary Care Provider: Vince Vernon Other Providers: Sangeeta Ko ; Vince Morrow ; Akhil Montaño ; Kaushik Kim ; Luiza Padilla ; Ashok Davis ; Maribell Jenkins ; Rohan Carrera ; Adonis Rushing ; Dami Rodriguez Andrew J. ; Adonis Saavedra ; Mich Song ; Brody Sanford ; Robb Guzman ; Maribell Maki ; Salvatore Rodríguez ; David Vee ; Janis Tyler ; Mathew Thompson ; Eva Ramsey ; Puneet Haley ; Sylvain Melendrez ; Esthela Curtis ; Harish Arciniega I. ; Cristhian Oconnor II ; Minda Vargas ; Dami Willard ; David Banerjee ; [facility] Other Interventions: Discharge Summary Assessment (RN) Last Done: 11/10/21 12:27 Coding Level of Care Code D/C DAY MANAGEMENT >30 MINS Diagnoses Osteomyelitis M86.9 Laterality: right Osteomyelitis location: foot Osteomyelitis type: unspecified type Tenosynovitis of ankle M65.9 Hypomagnesemia E83.42 Hyponatremia E87.1 Diabetes mellitus type 2, uncontrolled E11.65 Hyperlipidemia E78.5 Hyperlipidemia type: unspecified PAD (peripheral artery disease) I73.9 HTN (hypertension) I10 Diabetic peripheral neuropathy E11.42 Insomnia G47.00 Iron deficiency anemia D50.9
== END 2021-11-10 14:04 | disposition home health service (06) | DRG 638 ==
LOC: ED 10:17 → 3E 13:04 → SUATTDRO 13:04 → 3E 15:05
DX: Z88.2 Allergy status to sulfonamides; D50.9 Iron deficiency anemia, unspecified; Z79.4 Long term (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; Z88.1 Allergy status to other antibiotic agents; T81.31XA Disruption of external operation (surgical) wound, not elsewhere classified, initial encounter; Z86.14 Personal history of Methicillin resistant Staphylococcus aureus infection; E11.69 Type 2 diabetes mellitus with other specified complication; E11.51 Type 2 diabetes mellitus with diabetic peripheral angiopathy without gangrene; G47.00 Insomnia, unspecified; M86.171 Other acute osteomyelitis, right ankle and foot; Z79.82 Long term (current) use of aspirin; Z98.890 Other specified postprocedural states; E78.5 Hyperlipidemia, unspecified; I10 Essential (primary) hypertension; Z89.421 Acquired absence of other right toe(s); Y92.009 Unspecified place in unspecified non-institutional (private) residence as the place of occurrence of the external cause; I73.9 Peripheral vascular disease, unspecified; L03.115 Cellulitis of right lower limb; Z87.891 Personal history of nicotine dependence; M65.871 Other synovitis and tenosynovitis, right ankle and foot; E11.42 Type 2 diabetes mellitus with diabetic polyneuropathy; E22.2 Syndrome of inappropriate secretion of antidiuretic hormone; Z95.828 Presence of other vascular implants and grafts; E83.42 Hypomagnesemia; E11.65 Type 2 diabetes mellitus with hyperglycemia

== ENCOUNTER 2021-11-24 11:38 | Inpatient (IN) ==
[2021-11-24] MEDS ORDERED: ACETAMINOPHEN 325 MG TAB PO PRN (11:57)
--- NOTE | 2021-11-24 12:48 | History & Physical Report ---
Date of Service November 24, 2021 Assessment & Plan (1) Ankle ulcer due to DM: Plan: Worsening discharge and pain since stopping antibiotics just 4 days ago. WBC elevated 12.67, ESR 48 (previously 21), CRP 1.4 (previously 0.81) MRI ankle w/wo IV contrast May need ortho consult depending on result of this. Wound culture taken in wound care clinic Blood cultures here - patient current has no lines in place since recent PICC line removed. Restart prior antibiotics with IV cefepime and vancomycin pending cultures and likely need for infectious disease consult. Recent US arterial Doppler performed in August - no need to repeat this. (2) Cellulitis of foot, right: Plan: Mild surrounding right medial ankle ulcer without underlying fluctuance although just cleaned at wound care clinic when seen. Blood cultures and antibiotics as above. Patient is non-septic. (3) Osteomyelitis of great toe of right foot: Plan: Chronic but possibly where recurrent infection is coming from. Will repeat Foot MRI w/wo IV contrast to reassess. ESR/CRP. (4) HTN (hypertension): Plan: Continue metoprolol succinate 50mg PO QAM, lisinopril 10mg PO QAM (5) Diabetic peripheral neuropathy: Plan: Continue nortriptyline 100mg PO HS (6) Tenosynovitis of ankle: Plan: Noted previously, MRI ankle/foot as above (7) PAD (peripheral artery disease): Plan: US arterial doppler in August without hemodynamically significant stenosis Continue ASA 81mg PO daily (8) Diabetes mellitus type 2, uncontrolled: Plan: HbA1C 10.5 in October, no need to repeat this Hold metformin. Continue Lantus 15 units SQ HS Novolog sliding scale: Goal BSG Range: Low 110 mg/dL, High 140 mg/dL Correction Factor: 45 mg/dL/unit Carbohydrate ratio = 15 g/unit BSGs ACHS if eating, q6h if npo Plan: VTE Prophylaxis - Lovenox 40mg SQ daily Diet - heart healthy, T2DM Disposition - observation status to med/surg Admission and Anticipated Discharge Date Admission Date: November 24, 2021 History of Present Illness Chief Complaint: Right ankle pain and increased discharge Primary Care Provider: DO Pastora Henaora Inch is a 56 year old female who presents to the ER as a direct admission from wound care clinic due to diabetic foot ulcer and cellulitis of her right foot. After finishing her recent course of vancomycin and cefepime she reports slowly progressively worsening ankle pain and discharge since that time. No fever or chills. She was most recently admitted to [facility] from November 04 to November 11 due to osteomyelitis however per infectious disease note at the time due to MRI findings showing stable chronic osteomyelitis and presentation was suspected to be more consistent with a soft tissue infection. No surgery was performed on that admission and she was discharged on vancomycin and cefepime with end date November 19 and wound vac. She reports the wound vac has been falling off. She has since finished the antibiotics and followed up at wound care clinic today and recommended direct admission due to her worsening signs and symptoms of infection. Allergies Allergy/AdvReac Type Severity Reaction Status Date / Time morphine Allergy Severe blisters Verified 11/24/21 10:12 in mouth Sulfa (Sulfonamide Allergy Severe rash/swelli Verified 11/24/21 10:12 Antibiotics) ng iron [From Venofer] Allergy Intermediate Hypertensio Verified 11/24/21 10:12 n vancomycin Allergy Intermediate YULIYA Verified 11/24/21 10:12 SYNDROME---CAN TAKE IF VERY SLOW DRIP. Home Medications Medication Instructions Recorded Confirmed Type nortriptyline 50 mg capsule 100 mg PO HS 10/19/20 11/24/21 History (Pamelor) ropinirole 2 mg tablet 4 mg PO HS 10/19/20 11/24/21 History zolpidem 10 mg tablet (Ambien) 10 mg PO HS 10/19/20 11/24/21 History lancets (OneTouch UltraSoft #100 ea 11/12/20 11/24/21 History Lancets) albuterol sulfate 90 mcg/actuation 1 puff INHALATION QID PRN 03/05/21 11/24/21 History aerosol inhaler (Proventil HFA) metoprolol succinate 50 mg 50 mg PO QAM 03/05/21 11/24/21 History tablet,extended release 24 hr (Toprol XL) insulin glargine 100 unit/mL (3 15 unit SUBCUT HS #1 ml 08/18/21 11/24/21 Rx mL) subcutaneous pen (Basaglar KwikPen U-100 Insulin) insulin lispro 100 unit/mL 3 unit SUBCUT TIDM #1 ml 08/18/21 11/24/21 Rx subcutaneous pen (Humalog KwikPen (U-100) Insulin) metformin 500 mg tablet 500 mg PO BID #60 tab 08/18/21 11/24/21 Rx aspirin 81 mg tablet,delayed 81 mg PO BID #60 tab 10/04/21 11/24/21 Rx release (Aspirin Low Dose) lisinopril 10 mg tablet 10 mg PO QAM #30 tab 10/04/21 11/24/21 Rx lorazepam 1 mg tablet (Ativan) 1 mg PO TID PRN 11/04/21 11/24/21 History oxycodone-acetaminophen 5 mg-325 1 - 2 tab PO Q4H PRN #20 tab 11/10/21 11/24/21 Rx mg tablet (Percocet) cyclobenzaprine 10 mg tablet 10 mg PO BID tab 11/24/21 11/24/21 History zolpidem 12.5 mg tablet,extended 12.5 mg PO HS 11/24/21 11/24/21 History release,multiphase Past Med/Surg History Medical History 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 No issues per anesthesia postop progress note. Anemia Cellulitis Chronic back pain Depression Diabetic peripheral neuropathy DM2 (diabetes mellitus, type 2) IDDM, A1c 07/2021-11% Gastritis GIB (gastrointestinal bleeding) History of amputation of great toe Hyperlipidemia Insulin dependent diabetes mellitus Iron deficiency anemia Nonobstructive atherosclerosis of coronary artery Numbness of lower extremity Peripheral neuropathy Right second toe ulcer Seizures Surgical History History of cardiac cath done at [facility]; 09/22/19; LM - mild luminal irregularities. LAD - mid 20-30%, distal with myocardial bridge & 30% stenosis. L Cx - mild luminal irregularities. RCA - proximal <30% stenosis; mid/distal vessel mild plaques. PDA - mild luminal irregularities. History of esophagogastroduodenoscopy (EGD) Family History Mother , age 63 Myocardial infarction Father , age 68 or 69 Myocardial infarction Brother S/P CABG (coronary artery bypass graft) Sister Myocardial infarction x 3; she is 57yo Social History Smoking Status: Current every day smoker Tobacco Type: Cigarettes packs per day: 0.5; Years Smoked: 20; Second Hand Exposure: No; Hx Alcohol Use: No Hx Substance Use: Yes Prescribed Medications: Marijuana Last Used Substance: Days (ago) Last Used Substance Other:: 2 days ago Substance Use Type Other:: medical marijuana Preferred Language: Belarusian Communication Ability: Effective Visual Impairment: No Limitations Hearing Ability: Normal Feather Stitcher Required: No Beliefs That Will Affect Care: None marital status: Current Living Situation: Spouse and Family current occupational status: unemployed 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 other: raising a grandchild as well; lives in [place] Feels Safe at Home: Yes during the past year weight has: remained stable Assistive Devices: Walker Review of Systems Review of Systems: All systems reviewed & are unremarkable except as noted in HPI & below Physical Exam Constitutional: WD/WN, vitals as above Eyes: + anicteric sclerae; normal pupil size ENMT: external ear and nose normal, oropharynx normal Neck: trachea midline, no thyromegaly Respiratory: normal respiratory effort, lungs clear to auscultation Cardiovascular: RRR, no murmur, no edema Vessels: dorsalis pedis pulses present Gastrointestinal (Abdomen): normal bowel sounds, soft, nontender, no hepatosplenomegaly Skin: + ulcer (right medial malleolus 2cm, no pus but slough material present, no odor) Neurologic: moves all extremities and awake; not confused Psychiatric: A+Ox3, euthymic affect Code Status & VTE Plan Code Status Full VTE Prophylaxis Plan VTE Prophylaxis will be ordered: Yes PG Care Time/CCT Total # of Minutes Spent Total Time Spent with Patient: Total time spent is greater than 50% in coordination of care (as documented) at patient's floor/unit and/or counseling patient: Coding Level of Care Code INT OBSERVATION CARE 70M LVL 3 Diagnoses Osteomyelitis of great toe of right foot M86.9 HTN (hypertension) I10 Diabetic peripheral neuropathy E11.42 Cellulitis of foot, right L03.115 Tenosynovitis of ankle M65.9 PAD (peripheral artery disease) I73.9 Diabetes mellitus type 2, uncontrolled E11.65 Ankle ulcer due to DM E11.622; L97.309
[2021-11-24] MEDS ORDERED: VANCOMYCIN CONSULT ACTIVE PRN (13:18)
[2021-11-24] MEDS ORDERED: HYDROmorphone INJ 1 MG/ML SYRINGE IV STA (13:18)
[2021-11-24] MEDS ORDERED: GLUCAGON FOR INJ 1 MG VIAL SQ PRN (13:28)
[2021-11-24] MEDS ORDERED: DEXTROSE 50% 50 ML SYRINGE IV PRN (13:28)
[2021-11-24] MEDS ORDERED: GLUCOSE 10 TABS/TUBE PO PRN (13:28)
[2021-11-24] MEDS ORDERED: CARBOHYDRATES FOR HYPOGLYCEMIA PO PRN (13:28)
[2021-11-24] MEDS ORDERED: GLUCOSE 40% GEL 15 GM TUBE PO PRN (13:28)
[2021-11-24] MEDS: CEFEPIME 2,000 MG in SYRINGE 0 ML IV SCH ×2 (14:15→22:55)
[2021-11-24] MEDS ORDERED: VANCOMYCIN HCL 1,750 MG in SODIUM CHLORIDE 0.9% 500 ML IV ONE (14:30)
[2021-11-24] MEDS: PATIENT'S HEIGHT AND/OR WEIGHT NEEDED SCH ×2 (14:37→14:49)
[2021-11-24] MEDS: METOPROLOL SUCC 50MG EXT REL TAB PO SCH (16:04)
[2021-11-24] MEDS: oxyCODONE/ACETAMINOPHEN 5mg/325mg TAB PO PRN ×2 (16:04→21:28)
[2021-11-24] MEDS: LORazepam 1 MG TAB PO PRN (16:04)
[2021-11-24 16:07] LABS: Basophils # (auto) 0.02 K/uL (0-0.2); Basophils % (auto) 0.2 %; Eosinophils # (auto) 0.46 K/uL (0-0.5); Eosinophils % (auto) 3.6 %; Hemoglobin 13.2 g/dL (12.0-16.0); Immature Granulocytes # (auto) 0.02 K/uL (0.00-0.02); Immature Granulocytes % (auto) 0.2 %; Lymphocytes # (auto) 1.94 K/uL (1.2-3.4); Lymphocytes % (auto) 15.3 %; Mean Corpuscular Hemoglobin 25.9 pg (25-34); Mean Corpuscular Volume 78.4 fL (80-100); Mean Platelet Volume 9.7 fL (7.4-10.4); Monocytes # (auto) 0.88 K/uL (0.11-0.59); Monocytes % (auto) 6.9 %; Neutrophils # (auto) 9.35 K/uL (1.4-6.5); Neutrophils % (auto) 73.8 %; Platelet Count 414 K/uL (130-400); RDW Coefficient of Variation 14.8 % (11.5-14.5); RDW Standard Deviation 42.7 fL (36.4-46.3); White Blood Count 12.67 K/uL (4.8-10.8)
[2021-11-24 16:26] LABS: Partial Thromboplastin Ratio 0.8; Partial Thromboplastin Time 23.1 Seconds (21.0-31.0); Prothrombin Time 10.7 Seconds (9.0-12.0)
[2021-11-24 17:24] LABS: Albumin Globulin Ratio 1.3 (0.9-2); Albumin Level 4.3 gm/dl (3.4-5.0); BUN Creatinine Ratio 17.1 (10-20); Bilirubin,Total 0.4 mg/dl (0.2-1.0); C Reactive Protein 1.4 mg/dl (0-0.5); Calcium 9.5 mg/dl (8.5-10.1); Creatinine Clr Calc Pharmacy 132.4 ml/min; Est GFR (African American) 132.9 ml/min; Est GFR (Non-African American) 114.7 ml/min; Globulin 3.3 gm/dl (2.5-4.0); Potassium 4.3 mmol/L (3.5-5.1); Total Protein 7.6 gm/dl (6.0-8.3)
[2021-11-24] MEDS: INSULIN ASPART PER UNIT SC SCH ×2 (17:34→21:48)
[2021-11-24] MEDS: HYDROmorphone INJ 0.5 MG/0.5 ML SYR IV PRN ×2 (18:43→21:51)
[2021-11-24] MEDS ORDERED: hydrALAZINE HCL 20 MG/ML VIAL IV PRN (18:44)
[2021-11-24] MEDS ORDERED: GADOBUTROL 65ML VIAL IV ONE (18:46)
--- NOTE | 2021-11-24 19:33 | Magnetic Resonance Report ---
MR ankle RT wo/w con CLINICAL HISTORY: right medial ankle non healing ulcer, evaluate for osteomyelitis. COMPARISON STUDY: 11/05/2021 TECHNIQUE: Multiplanar multisequence images of the right ankle were performed with and without IV co ntrast. Contrast Volume: 6.5 ml of Gadavist FINDINGS: Compared to the previous examination, there is no significant interval change. Osseous structures: There is again very slight marrow edema present involving the medial margin of th e medial malleolus which remains unchanged. It does not enhance following contrast menstruation. Ther e is again slight marrow edema present involving the medial aspect of the talus as well. Again, there is no enhancement following contrast administration. These findings are again most characteristic of mild reactive edema. There is again no definite MR evidence for interval osteomyelitis. Homogeneous marrow signal seen throughout the remaining imaged bones of the ankle. There is no other evidence for marrow edema or marrow replacement. There is no abnormal marrow enhancement following co ntrast administration. There is no evidence for an acute or occult fracture. Joints: The tibiotalar joint is maintained. There is no evidence for joint effusion. No osteochondra l defects are seen at the talar dome. The subtalar joint is maintained. Tendons: The tibialis posterior tendon as well as the flexor digitorum longus and hallucis longus ten dons demonstrate anatomic signal characteristics. However, there is again fluid seen within their ten don sheaths representing tenosynovitis. The peroneus longus and brevis tendons are within normal limits. There is no evidence for tendon te ar or tendinopathy. The Achilles' tendon is within normal limits. Plantar fascia is within normal mcduffie its. Ligaments: The anterior and posterior tibiofibular and talofibular ligaments are intact. Deltoid comp bebo is within normal limits. The calcaneofibular ligament is also within normal limits. Soft tissues: There is increased subcutaneous soft tissue swelling along the medial and posteromedial aspect of the ankle. There is now a fluid collection also seen within the soft tissues at this site deep to the skin ulceration. These findings are suspicious for an abscess. There is diffuse enhanceme nt of the inflamed soft tissues. IMPRESSION: 1. Compared to the previous study, there is no significant interval change in appearance of the osseo us structures with no definite MR evidence for osteomyelitis as described above. 2. There is again 19 is synovitis of the tendon sheaths along the medial aspect of the ankle. 3. There is increasing subcutaneous edema along the medial aspect of the ankle characteristic is wors ening cellulitis. 4. Fluid collection in now seen deep to the medial soft tissue ulceration. These findings are suspici ous for possible abscess. ACT 112: Negative or not required by law. Electronically signed by: Jaylon Connell M.D. 11/24/2021 7:31 PM
--- NOTE | 2021-11-24 20:24 | Magnetic Resonance Report ---
MR foot RT wo/w con CLINICAL HISTORY: right medial ankle non healing ulcer, evaluate for osteomyelitis of the metatarsal . COMPARISON: 11/05/2021 TECHNIQUE: Multiplanar multisequence images of the right foot were performed with and without IV con trast. Contrast Volume: 6.5 ml of Gadavist FINDINGS: Osseous structures:Compared to the previous examination, there is no significant interval change. The re is again diffuse marrow edema and enhancement present involving the distal half of the first metat arsal and the distal amputation margin of the second metatarsal. Homogeneous marrow signal is seen throughout the imaged bones of the foot. There is no other evidenc e for marrow edema or marrow replacement. There is no other abnormal marrow enhancement following con trast administration. No acute osseous pathology is seen. Joints: The third through fifth MTP joints are intact. The imaged IP joints are intact. The remaining imaged joints of the foot are intact. Tendons: The extensor tendons along the dorsum of the foot and the flexor tendons along the plantar a spect of the foot are intact. The Achilles' tendon appears normal. Plantar fascia appears normal. Ligaments: The imaged ligaments of the foot are intact. Soft tissues: Diffuse soft tissue swelling and edema are again seen at the amputation stumps. Diffuse soft tissue enhancement is again seen following contrast administration characteristic of cellulitis . However, no focal fluid collections are identified. IMPRESSION: 1. No significant interval change in the previous study with MR findings again most characteristic of chronic stable osteomyelitis involving the first and second metatarsals as described above. 2. No interval worsening of the osteomyelitis is identified. 3. There is again diffuse cellulitis surrounding the amputation stumps which is also not significantl y changed from previous study. ACT 112: Negative or not required by law. Electronically signed by: Jaylon Connell M.D. 11/24/2021 8:21 PM
[2021-11-24] MEDS: LACTATED RINGER'S 1,000 ML IV SCH (21:00)
[2021-11-24] MEDS: ENOXAPARIN INJ 40 MG/0.4 ML SYR SQ SCH (21:48)
[2021-11-24] MEDS: INSULIN GLARGINE SOLOSTAR 100 UNITS/ML 3 ML PEN SC SCH (21:49)
[2021-11-24] MEDS: NORTRIPTYLINE HCL 25 MG CAP PO SCH (21:55)
[2021-11-24] MEDS: VANCOMYCIN HCL 1,250 MG in SODIUM CHLORIDE 0.9% 250 ML IV SCH (23:41)
[2021-11-24] MEDS: rOPINIRole HCL 2 MG TABLET PO SCH (23:42)
[2021-11-25] MEDS ORDERED: ZOLPIDEM TARTRATE 10 MG TAB PO PRN (00:25)
--- NOTE | 2021-11-25 00:27 | Communication Note ---
Date of Service: November 25, 2021 Ordered home zolpidem 10mg qhs prn. Reviewed prior discharge summary. This is patient's home dose/med.
[2021-11-25] MEDS: HYDROmorphone INJ 0.5 MG/0.5 ML SYR IV PRN ×7 (02:13→23:22)
[2021-11-25] MEDS: oxyCODONE/ACETAMINOPHEN 5mg/325mg TAB PO PRN ×4 (03:37→21:21)
[2021-11-25 05:23] LABS: Basophils # (auto) 0.05 K/uL (0-0.2); Basophils % (auto) 0.6 %; Eosinophils # (auto) 0.52 K/uL (0-0.5); Eosinophils % (auto) 5.8 %; Hematocrit (blood only) 36.3 % (37-47); Hemoglobin 11.5 g/dL (12.0-16.0); Immature Granulocytes # (auto) 0.02 K/uL (0.00-0.02); Immature Granulocytes % (auto) 0.2 %; Lymphocytes # (auto) 1.83 K/uL (1.2-3.4); Lymphocytes % (auto) 20.2 %; Mean Corpuscular Hemoglobin 24.9 pg (25-34); Mean Corpuscular Hgb Conc 31.7 g/dL (32-36); Mean Corpuscular Volume 78.7 fL (80-100); Mean Platelet Volume 9.4 fL (7.4-10.4); Monocytes # (auto) 1.01 K/uL (0.11-0.59); Monocytes % (auto) 11.2 %; Neutrophils # (auto) 5.61 K/uL (1.4-6.5); Platelet Count 364 K/uL (130-400); RDW Coefficient of Variation 14.8 % (11.5-14.5); RDW Standard Deviation 42.5 fL (36.4-46.3); Red Blood Count 4.61 M/uL (4.2-5.4); White Blood Count 9.04 K/uL (4.8-10.8)
[2021-11-25 05:48] LABS: BUN Creatinine Ratio 23.3 (10-20); Calcium 8.9 mg/dl (8.5-10.1); Creatinine Clr Calc Pharmacy 126.2 ml/min; Est GFR (African American) 130.9 ml/min; Est GFR (Non-African American) 112.9 ml/min; Potassium 4.2 mmol/L (3.5-5.1)
[2021-11-25] MEDS: CEFEPIME 2,000 MG in SYRINGE 0 ML IV SCH ×3 (06:14→21:38)
[2021-11-25] MEDS: INSULIN ASPART PER UNIT SC SCH ×5 (06:19→23:37)
[2021-11-25] MEDS: ONDANSETRON INJ 2 MG/ML 2 ML VIAL IV PRN ×2 (06:20→15:24)
[2021-11-25] MEDS: ASPIRIN 81 MG ECTAB PO SCH (07:59)
[2021-11-25] MEDS: LORazepam 1 MG TAB PO PRN ×2 (08:08→15:27)
[2021-11-25] MEDS: CYCLOBENZAPRINE HCL 10 MG TAB PO PRN ×2 (08:08→21:21)
[2021-11-25] MEDS: VANCOMYCIN HCL 1,250 MG in SODIUM CHLORIDE 0.9% 250 ML IV SCH ×3 (08:10→23:23)
--- NOTE | 2021-11-25 09:56 | Pharmacy Report ---
Pharmacy Vanc AUC Short Note - Date of Service November 25, 2021 - Assessment & Plan Assessment 56 year old F receiving vancomycin and cefepime for treatment of recurrent right foot infection. Recent admission 11/04/21-11/10/21 for right foot cellulitis with osteomyelitis. At that time, MRI results showed stable chronic osteo with soft tissue infection. Patient was treated with vanco + cefepime 11/04/21 - 11/19/21 per ID recommendation. After completion of IV antibiotics, patient reported worsening right foot pain and was referred to [facility] from wound care clinic for further treatment. h/o foot culture growing MRSA (Aug 2021), Enterobacter cloacae + Klebsiella oxytoca (Sep 2021) Plan Continue vancomycin + cefepime Vanco * 1250 mg IV every 8 hours * Target AUC/CELSO of 400-600 mg/L.hr * AUC/CELSO is the preferred PK/PD target for vancomycin * AUC guided dosing is effective and associated with decreased risk of nephrotoxicity compared to traditional trough targets * Trough level ordered for 11/26/21 @ 0730 Pharmacy will continue to follow and will adjust dose/frequency as necessary. Thank you.
[2021-11-25] MEDS: METOPROLOL SUCC 50MG EXT REL TAB PO SCH (10:06)
[2021-11-25] MEDS: lisinopril 10 MG TAB PO SCH (10:06)
[2021-11-25] MEDS: LACTATED RINGER'S 1,000 ML IV SCH ×2 (12:21→23:23)
--- NOTE | 2021-11-25 13:56 | Hospitalist Progress Note ---
Date of Service November 25, 2021 Assessment & Plan (1) Ankle ulcer due to DM: Plan: Worsening discharge and pain since stopping antibiotics just 4 days ago. WBC elevated 12.67, ESR 48 (previously 21), CRP 1.4 (previously 0.81) on admission MRI ankle w/wo IV contrast - tenosynovitis, increasing subcutaneous edema along medial aspect of ankle concerning for worsening cellulitis, fluid collection seen deep to medial soft tissue ulceration Consult orthopedics pending Wound culture gram stain moderate gram positive cocci, few gram negative bacilli, pending culture Blood cultures negative at 24 hours. Continue IV cefepime and vancomycin Recent US arterial Doppler performed in August - no need to repeat this. (2) Cellulitis of foot, right: Plan: Mild surrounding right medial ankle ulcer without underlying fluctuance although just cleaned at wound care clinic when seen. Blood cultures and antibiotics as above. Patient is non-septic. (3) Osteomyelitis of great toe of right foot: Plan: Chronic but possibly where recurrent infection is coming from. stable per MRI findings. suspect acute worsening due to fluid collection and cellulitis as above. (4) HTN (hypertension): Plan: Continue metoprolol succinate 50mg PO QAM, lisinopril 10mg PO QAM (5) Diabetic peripheral neuropathy: Plan: Continue nortriptyline 100mg PO HS (6) Tenosynovitis of ankle: Plan: Noted previously, MRI ankle/foot as above (7) PAD (peripheral artery disease): Plan: US arterial doppler in August without hemodynamically significant stenosis Continue ASA 81mg PO daily (8) Diabetes mellitus type 2, uncontrolled: Plan: HbA1C 10.5 in October, no need to repeat this Hold metformin. Continue Lantus 15 units SQ HS Novolog sliding scale: Goal BSG Range: Low 110 mg/dL, High 140 mg/dL Correction Factor: 45 mg/dL/unit Carbohydrate ratio = 15 g/unit BSGs ACHS if eating, q6h if npo Plan: VTE Prophylaxis - Lovenox 40mg SQ daily Diet - NPO pending orthopedic evaluation Disposition - observation status to med/surg Admission and Anticipated Discharge Date Admission Date: November 24, 2021 Subjective Reports pain well controlled on current diluadid dosing. No acute concerns or questions. Orthopedic evaluation pending. No fever or chills overnight. Review of Systems Review of Systems: All systems reviewed & are unremarkable except as noted in Subjective Physical Exam Constitutional: WD/WN, vitals as above Eyes: + anicteric sclerae; normal pupil size ENMT: external ear and nose normal, oropharynx normal Neck: trachea midline, no thyromegaly Respiratory: normal respiratory effort, lungs clear to auscultation Cardiovascular: RRR, no murmur, no edema Vessels: dorsalis pedis pulses present Gastrointestinal (Abdomen): normal bowel sounds, soft, nontender, no hepatosplenomegaly Skin: + ulcer (dressing not removed today pending orthopedics evaluation) Neurologic: moves all extremities and awake; not confused Psychiatric: A+Ox3, euthymic affect Results & Data Results & Data ([facility]) Vital Signs (Past 12 Hours) Vital Signs Temp Pulse Resp BP Pulse Ox 11/25/21 07:23 36.7 C 86 18 140/83 96 PG Care Time/CCT Total # of Minutes Spent Total Time Spent with Patient: Total time spent is greater than 50% in coordination of care (as documented) at patient's floor/unit and/or counseling patient: Coding Level of Care Code 84428 Subseq Obs Care Lvl 2 Diagnoses Ankle ulcer due to DM E11.622; L97.309 Cellulitis of foot, right L03.115 Osteomyelitis of great toe of right foot M86.9 HTN (hypertension) I10 Diabetic peripheral neuropathy E11.42 Tenosynovitis of ankle M65.9 PAD (peripheral artery disease) I73.9 Diabetes mellitus type 2, uncontrolled E11.65
--- NOTE | 2021-11-25 17:45 | Orthopedic Consultation ---
Date of Consultation November 25, 2021 Assessment & Plan (1) Ankle ulcer due to DM: The patient was seen with Dr. Montaño. MRI findings discussed. The patient will be NPO after midnight with a plan for OR Tomorrow for a right ankle I & D ulceration, debridement of skin, fascia, tendon, possible excision PTT, possible evacuation abscess. All potential risks, benefits, complications, alternatives, and rehab have been discussed with the patient and she wishes to proceed. Thank you for the consultation. We will follow with the patient post operatively. (2) Surgical wound, non healing: (3) Tenosynovitis of ankle: History of Present Illness Reason for Consultation: right ankle ulcer Attending Physician: Silvestre Best MD History of Present Illness This is a patient well known to [facility] with a right ankle chronic medial ulceration. She has had multiple procedures but fails to improve. She was recently admitted for worsening pain and drainage. An MRI was performed and there is concern of abscess and infection within the PTT. We were consulted for possible surgical management. Allergies Allergy/AdvReac Type Severity Reaction Status Date / Time morphine Allergy Severe blisters Verified 11/24/21 10:12 in mouth Sulfa (Sulfonamide Allergy Severe rash/swelli Verified 11/24/21 10:12 Antibiotics) ng iron [From Venofer] Allergy Intermediate Hypertensio Verified 11/24/21 10:12 n vancomycin Allergy Intermediate YULIYA Verified 11/24/21 10:12 SYNDROME---CAN TAKE IF VERY SLOW DRIP. Home Medications Medication Instructions Recorded Confirmed Type nortriptyline 50 mg capsule 100 mg PO HS 10/19/20 11/24/21 History (Pamelor) ropinirole 2 mg tablet 4 mg PO HS 10/19/20 11/24/21 History zolpidem 10 mg tablet (Ambien) 10 mg PO HS 10/19/20 11/24/21 History lancets (OneTouch UltraSoft #100 ea 11/12/20 11/24/21 History Lancets) albuterol sulfate 90 mcg/actuation 1 puff INHALATION QID PRN 03/05/21 11/24/21 History aerosol inhaler (Proventil HFA) metoprolol succinate 50 mg 50 mg PO QAM 03/05/21 11/24/21 History tablet,extended release 24 hr (Toprol XL) insulin glargine 100 unit/mL (3 15 unit SUBCUT HS #1 ml 08/18/21 11/24/21 Rx mL) subcutaneous pen (Basaglar KwikPen U-100 Insulin) insulin lispro 100 unit/mL 3 unit SUBCUT TIDM #1 ml 08/18/21 11/24/21 Rx subcutaneous pen (Humalog KwikPen (U-100) Insulin) metformin 500 mg tablet 500 mg PO BID #60 tab 08/18/21 11/24/21 Rx aspirin 81 mg tablet,delayed 81 mg PO BID #60 tab 10/04/21 11/24/21 Rx release (Aspirin Low Dose) lisinopril 10 mg tablet 10 mg PO QAM #30 tab 10/04/21 11/24/21 Rx lorazepam 1 mg tablet (Ativan) 1 mg PO TID PRN 11/04/21 11/24/21 History oxycodone-acetaminophen 5 mg-325 1 - 2 tab PO Q4H PRN #20 tab 11/10/21 11/24/21 Rx mg tablet (Percocet) cyclobenzaprine 10 mg tablet 10 mg PO BID tab 11/24/21 11/24/21 History zolpidem 12.5 mg tablet,extended 12.5 mg PO HS 11/24/21 11/24/21 History release,multiphase Patient History Medical History 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 No issues per anesthesia postop progress note. Anemia Cellulitis Chronic back pain Depression Diabetic peripheral neuropathy DM2 (diabetes mellitus, type 2) IDDM, A1c 07/2021-11% Gastritis GIB (gastrointestinal bleeding) History of amputation of great toe Hyperlipidemia Insulin dependent diabetes mellitus Iron deficiency anemia Nonobstructive atherosclerosis of coronary artery Numbness of lower extremity Peripheral neuropathy Right second toe ulcer Seizures Surgical History History of cardiac cath done at [facility]; 09/22/19; LM - mild luminal irregularities. LAD - mid 20-30%, distal with myocardial bridge & 30% stenosis. L Cx - mild luminal irregularities. RCA - proximal <30% stenosis; mid/distal vessel mild plaques. PDA - mild luminal irregularities. History of esophagogastroduodenoscopy (EGD) Family History Mother , age 63 Myocardial infarction Father , age 68 or 69 Myocardial infarction Brother S/P CABG (coronary artery bypass graft) Sister Myocardial infarction x 3; she is 57yo Social History Smoking Status: Former smoker Tobacco Type: Cigarettes packs per day: 0.5; Years Smoked: 20; Cigarettes Per Day: 20; Second Hand Exposure: No; Do You Dip or Chew Tobacco: No; Tobacco Cessation Education Requested by Patient: No Hx Alcohol Use: No Hx Substance Use: Yes Prescribed Medications: Marijuana Last Used Substance: Days (ago) Last Used Substance Other:: 2 days ago Substance Use Type Other:: medical marijuana Preferred Language: Bermudian Communication Ability: Effective Visual Impairment: No Limitations Hearing Ability: Normal Railroad Yard Worker Required: No Beliefs That Will Affect Care: None marital status: Current Living Situation: Spouse and Family current occupational status: unemployed 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 Other Information That Helps Us Care for You: No other: raising a grandchild as well; lives in [place] Feels Safe at Home: Yes Safety Concerns: Feels Safe At This Time during the past year weight has: remained stable Assistive Devices: Cane and Walker Physical Exam Constitutional: WD/WN, vitals as above no acute distress ENMT: external ear and nose normal, oropharynx normal Neck: trachea midline Respiratory: normal respiratory effort, lungs clear to auscultation Cardiovascular: Rate/Rhythm: regular rate and regular rhythm Gastrointestinal (Abdomen): normal bowel sounds, soft, nontender, no hepatosplenomegaly Musculoskeletal: Right ankle: large posteromedial ankle ulceration with moderate serosanguinous drainage. Surrounding erythema. Psychiatric: A+Ox3, euthymic affect Speech: normal rate/rhythm/volume of speech Lymphatic: no cervical or axillary lymphadenopathy Results & Data ([facility]) Vital Signs (Past 12 Hours) Vital Signs Temp Pulse Resp BP Pulse Ox 11/25/21 16:58 36.8 C 82 16 162/74 H 93 11/25/21 07:23 36.7 C 86 18 140/83 96
[2021-11-25] MEDS ORDERED: Nursing to Pharmacy Communication SCH (18:30)
[2021-11-25] MEDS: ENOXAPARIN INJ 40 MG/0.4 ML SYR SQ SCH (21:19)
[2021-11-25] MEDS: NORTRIPTYLINE HCL 25 MG CAP PO SCH (21:19)
[2021-11-25] MEDS: ZOLPIDEM TARTRATE 10 MG TAB PO SCH (21:20)
[2021-11-25] MEDS: rOPINIRole HCL 2 MG TABLET PO SCH (21:20)
[2021-11-25] MEDS: INSULIN GLARGINE SOLOSTAR 100 UNITS/ML 3 ML PEN SC SCH (21:22)
[2021-11-26] MEDS: oxyCODONE/ACETAMINOPHEN 5mg/325mg TAB PO PRN ×6 (01:49→22:48)
[2021-11-26] MEDS: HYDROmorphone INJ 0.5 MG/0.5 ML SYR IV PRN ×5 (02:12→18:24)
[2021-11-26] MEDS: LORazepam 1 MG TAB PO PRN ×4 (03:39→20:44)
[2021-11-26] MEDS: CEFEPIME 2,000 MG in SYRINGE 0 ML IV SCH ×3 (05:22→22:48)
[2021-11-26] MEDS: INSULIN ASPART PER UNIT SC SCH ×4 (05:34→20:48)
--- NOTE | 2021-11-26 06:56 | Anesthesiology Consultation ---
Date of Service November 26, 2021 Assessment & Plan (1) Encounter for pre-operative examination: Chart Review Chart Review: Acceptable Risk for Surgery and Patient NOT seen in Pre Admission Testing Consults Requested none History Surgery Operation Date: 11/26/21 08:00 Proposed Procedures p Incision and Drainage Right Medial Ankle Ulceration(Right) - Akhil Montaño DO Height/Weight Height: 5 ft 1 in Weight: 66.8 kg Allergies Allergy/AdvReac Type Severity Reaction Status Date / Time morphine Allergy Severe blisters Verified 11/24/21 10:12 in mouth Sulfa (Sulfonamide Allergy Severe rash/swelli Verified 11/24/21 10:12 Antibiotics) ng iron [From Venofer] Allergy Intermediate Hypertensio Verified 11/24/21 10:12 n vancomycin Allergy Intermediate YULIYA Verified 11/24/21 10:12 SYNDROME---CAN TAKE IF VERY SLOW DRIP. Medications Home Medications Medication Instructions Recorded Confirmed Last Taken nortriptyline 50 mg capsule 100 mg PO HS 10/19/20 11/24/21 11/03/21 (Pamelor) ropinirole 2 mg tablet 4 mg PO HS 10/19/20 11/24/21 11/03/21 zolpidem 10 mg tablet (Ambien) 10 mg PO HS 10/19/20 11/24/21 11/03/21 lancets (OneTouch UltraSoft #100 ea 11/12/20 11/24/21 Unknown Lancets) albuterol sulfate 90 mcg/actuation 1 puff INHALATION QID PRN 03/05/21 11/24/21 09/02/21 08:30 aerosol inhaler (Proventil HFA) metoprolol succinate 50 mg 50 mg PO QAM 03/05/21 11/24/21 08/31/21 09:00 tablet,extended release 24 hr (Toprol XL) insulin glargine 100 unit/mL (3 15 unit SUBCUT HS #1 ml 08/18/21 11/24/21 11/23/21 mL) subcutaneous pen (Basaglar KwikPen U-100 Insulin) insulin lispro 100 unit/mL 3 unit SUBCUT TIDM #1 ml 08/18/21 11/24/21 11/03/21 subcutaneous pen (Humalog KwikPen (U-100) Insulin) metformin 500 mg tablet 500 mg PO BID #60 tab 08/18/21 11/24/21 08/31/21 17:00 aspirin 81 mg tablet,delayed 81 mg PO BID #60 tab 10/04/21 11/24/21 11/23/21 release (Aspirin Low Dose) lisinopril 10 mg tablet 10 mg PO QAM #30 tab 10/04/21 11/24/21 11/03/21 lorazepam 1 mg tablet (Ativan) 1 mg PO TID PRN 11/04/21 11/24/21 Unknown oxycodone-acetaminophen 5 mg-325 1 - 2 tab PO Q4H PRN #20 tab 11/10/21 11/24/21 Unknown mg tablet (Percocet) cyclobenzaprine 10 mg tablet 10 mg PO BID tab 11/24/21 11/24/21 Unknown zolpidem 12.5 mg tablet,extended 12.5 mg PO HS 11/24/21 11/24/21 11/23/21 release,multiphase Active Medications Generic Name Dose Route Start Last Admin Trade Name Jcq PRN Reason Stop Dose Admin Aspirin 81 mg 11/25/21 09:00 11/25/21 07:59 Aspirin 81 Mg Ectab PO 12/25/21 08:59 81 mg QAM RICKY Administration Cyclobenzaprine HCl 10 mg 11/24/21 13:25 11/25/21 21:21 Cyclobenzaprine Hcl 10 Mg Tab PO 12/24/21 20:59 10 mg BID PRN Administration Muscle spasm Enoxaparin Sodium 40 mg 11/24/21 21:00 11/25/21 21:19 Enoxaparin Inj 40 Mg/0.4 Ml Syr SQ 12/24/21 20:59 40 mg QPM RICKY Administration Hydromorphone HCl 0.5 mg 11/24/21 13:33 11/26/21 05:22 Hydromorphone Inj 0.5 Mg/0.5 Ml Syr IV 12/08/21 13:32 0.5 mg Q3H PRN Administration Pain Cefepime HCl 2,000 mg/ Syringe 20 mls @ 5 mls/min 11/24/21 14:00 11/26/21 05:22 IV 12/01/21 13:59 5 mls/min Q8H RICKY Administration Protocol Vancomycin HCl 1,250 mg/ 275 mls @ 100 mls/hr 11/25/21 00:00 11/26/21 02:45 Sodium Chloride IV 01/06/22 00:00 Infused Q8H RICKY Infusion Lactated Ringer's 1,000 mls @ 80 mls/hr 11/24/21 21:00 11/25/21 23:23 Lr IV 12/24/21 20:59 80 mls/hr .[id number] RICKY Administration Insulin Aspart 0 units 11/25/21 06:00 11/26/21 05:34 Insulin Aspart Per Unit SC 12/25/21 05:59 1 units Q6 RICKY Administration Insulin Glargine 15 units 11/24/21 21:00 11/25/21 21:22 Insulin Glargine Solostar 100 Units/Ml 3 Ml Pen SC 12/24/21 20:59 15 units HS RICKY Administration Lisinopril 10 mg 11/25/21 09:00 11/25/21 10:06 Lisinopril 10 Mg Tab PO 12/25/21 08:59 Not Given QAM RICKY Lorazepam 1 mg 11/24/21 13:24 11/26/21 03:39 Lorazepam 1 Mg Tab PO 12/24/21 13:23 1 mg TID PRN Administration Anxiety Metoprolol Succinate 50 mg 11/24/21 13:30 11/25/21 10:06 Metoprolol Succ 50mg Ext Rel Tab PO 12/24/21 13:29 Not Given QAM RICKY Nortriptyline HCl 100 mg 11/24/21 21:00 11/25/21 21:19 Nortriptyline Hcl 25 Mg Cap PO 12/24/21 20:59 100 mg HS RICKY Administration Ondansetron HCl 4 mg 11/25/21 00:25 11/25/21 15:24 Ondansetron Inj 2 Mg/Ml 2 Ml Vial IV 12/25/21 00:24 4 mg Q6H PRN Administration Nausea Oxycodone/Acetaminophen 1 - 2 tab 11/24/21 13:25 11/26/21 06:16 Oxycodone/Acetaminophen 5mg/325mg Tab PO 12/08/21 13:24 2 tab Q4H PRN Administration breakthrough pain Ropinirole HCl 4 mg 11/24/21 21:00 11/25/21 21:20 Ropinirole Hcl 2 Mg Tablet PO 12/24/21 20:59 4 mg HS RICKY Administration Zolpidem Tartrate 10 mg 11/25/21 21:00 11/25/21 21:20 Zolpidem Tartrate 10 Mg Tab PO 12/25/21 20:59 10 mg HS RICKY Administration Past Medical History Medical History 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 No issues per anesthesia postop progress note. Anemia Cellulitis Chronic back pain Depression Diabetic peripheral neuropathy DM2 (diabetes mellitus, type 2) IDDM, A1c 07/2021-11% Gastritis GIB (gastrointestinal bleeding) History of amputation of great toe Hyperlipidemia Insulin dependent diabetes mellitus Iron deficiency anemia Nonobstructive atherosclerosis of coronary artery Numbness of lower extremity Peripheral neuropathy Right second toe ulcer Seizures Past Family History Family History Mother , age 63 Myocardial infarction Father , age 68 or 69 Myocardial infarction Brother S/P CABG (coronary artery bypass graft) Sister Myocardial infarction x 3; she is 57yo Past Surgical History Surgical History History of cardiac cath done at [facility]; 09/22/19; LM - mild luminal irregularities. LAD - mid 20-30%, distal with myocardial bridge & 30% stenosis. L Cx - mild luminal irregularities. RCA - proximal <30% stenosis; mid/distal vessel mild plaques. PDA - mild luminal irregularities. History of esophagogastroduodenoscopy (EGD) Social History Smoking Status: Former smoker tobacco type: cigarettes Smoking cigarettes per day: 20 Do You Dip or Chew Tobacco: No Hx Alcohol Use: No Hx Substance Use: Yes substance use type: marijuana Substance Use Type Other:: medical marijuana Last Used Substance: Days (ago) Last Used Substance Other:: 2 days ago Physical Exam Vital Signs Last Vital Signs Temp 98.4 F 11/25/21 21:45 Pulse 85 11/25/21 21:45 Resp 18 11/25/21 21:45 BP 152/71 H 11/25/21 21:45 Pulse Ox 91 11/25/21 21:45 Testing Laboratory Results 11/25/21 05:08 11/25/21 05:08 PT 10.7 Seconds (9.0-12.0) 11/24/21 15:49 INR 1.0 (0.9-1.1) 11/24/21 15:49 APTT 23.1 Seconds (21.0-31.0) 11/24/21 15:49 11/24/21 15:50 Aerobic Blood Culture - Preliminary Blood No growth in Aerobic bottle after 24 hours. Anaerobic Blood Culture - Final 11/24/21 15:49 Aerobic Blood Culture - Preliminary Blood No growth in Aerobic bottle after 24 hours. Anaerobic Blood Culture - Preliminary No growth in Anaerobic bottle after 24 hours. 11/26/21 11/25/21 11/25/21 05:30 23:35 20:48 POC Glucose 178 H 202 H 203 H Electrocardiogram Date: 11/04/21 Findings: + NSR @ Chest X-Ray Date: 11/09/21 Findings: + NAD
[2021-11-26] MEDS ORDERED: VANCOMYCIN TROUGH ONE (07:30)
[2021-11-26] MEDS: ASPIRIN 81 MG ECTAB PO SCH (07:54)
[2021-11-26] MEDS: CYCLOBENZAPRINE HCL 10 MG TAB PO PRN ×2 (08:53→20:37)
[2021-11-26 09:09] LABS: Creatinine Clr Calc Pharmacy 120.6 ml/min; Est GFR (African American) 128.9 ml/min; Est GFR (Non-African American) 111.2 ml/min
[2021-11-26] MEDS: VANCOMYCIN HCL 1,250 MG in SODIUM CHLORIDE 0.9% 250 ML IV SCH (09:17)
--- NOTE | 2021-11-26 10:44 | Pharmacy Report ---
Pharmacy Abx Dose Short Note - Date of Service November 26, 2021 - Assessment & Plan Assessment 56 year old F receiving vancomycin and cefepime for treatment of recurrent right foot infection. Recent admission 11/04/21-11/10/21 for right foot cellulitis with osteomyelitis. At that time, MRI results showed stable chronic osteo with soft tissue infection. Patient was treated with vanco + cefepime 11/04/21 - 11/19/21 per ID recommendation. After completion of IV antibiotics, patient reported worsening right foot pain and was referred to [facility] from wound care clinic for further treatment. h/o foot culture growing MRSA (Aug 2021), Enterobacter cloacae + Klebsiella oxytoca (Sep 2021) Plan Continue vancomycin + cefepime Vanco * Target AUC/CELSO of 400-600 mg/L.hr. Will aim toward the higher end of range given concern for osteo * Trough of 11.5 mcg/mL is estimated to achieve an AUC of approximately 450 mg/L.hr * Although current trough/AUC is lower than ideal, will plan to continue with current dosing. Once at steady state, this dose should achieve an AUC of ~560 mg/L.hr * Trough level ordered for 11/27/21 @ 1852 Pharmacy will continue to follow and will adjust dose/frequency as necessary. Thank you.
[2021-11-26] MEDS ORDERED: BUPIVACAINE 0.5 % 5 MG/1 ML MPF 30ML VIAL ONE (11:25)
[2021-11-26] MEDS ORDERED: ceFAZolin 330 MG/ML 1 GM VIAL ONE (11:25)
[2021-11-26] MEDS ORDERED: MIDAZOLAM HCL 1 MG/ML 2ML VIAL ONE (11:27)
[2021-11-26] MEDS ORDERED: fentaNYL citrate 100 MCG/2 ML VIAL ONE (11:28)
[2021-11-26] MEDS ORDERED: ATROPINE SULFATE 0.1 MG/ML 10ML SYR IV PRN (11:47)
[2021-11-26] MEDS ORDERED: ONDANSETRON INJ 2 MG/ML 2 ML VIAL IV PRN (11:47)
[2021-11-26] MEDS ORDERED: ePHEDrine sulfate 50 MG/ML AMP IV PRN (11:47)
--- NOTE | 2021-11-26 11:49 | History & Physical Bridge Note ---
Date of Service November 26, 2021 History & Physical Bridge Note I have examined the patient, reviewed the History & Physical and in the interval since the performance of the History & Physical I have noted the following changes of clinical significance: Will require evacuation abscess right ankle and foot in addition to tenosynovectomy of the posterior tibial tendon.
[2021-11-26] MEDS ORDERED: GENTAMICIN SULFATE 40 MG/ML 2 ML VIAL ONE (12:01)
[2021-11-26] MEDS ORDERED: VANCOMYCIN HCL 1000MG/20ML VIAL ONE (12:01)
[2021-11-26] MEDS ORDERED: HYDROmorphone INJ 2 MG/ML SYR/VIAL IV PRN (12:33)
[2021-11-26] MEDS ORDERED: LIDOCAINE 2% 2 ML VIAL/AMP(20MG/ML) INFIL ONE (12:44)
[2021-11-26] MEDS ORDERED: ONDANSETRON INJ 2 MG/ML 2 ML VIAL ONE (12:44)
[2021-11-26] MEDS ORDERED: PROPOFOL IV EMULSION 10 MG/ML 20 ML VIAL IV ONE (12:44)
[2021-11-26] MEDS ORDERED: PHENYLEPHRINE 100MCG/ML 5ML SYR ONE (13:30)
--- NOTE | 2021-11-26 13:59 | Post Operative Brief Note ---
Immediate Post Op Note v1 Date of Surgery November 26, 2021 Pre & Post Diagnosis Operation Date: 11/26/21 08:00 Pre-Op Diagnosis: Right foot medial abscess, posterior tibial tendon rupture, septic tenosynovitis flexor digitorum longus tendon, diabetic neuropathic ulcer 2.5 cm x 1.75 cm x 1.0 cm Post-Op Diagnosis: Right foot medial abscess, posterior tibial tendon rupture, septic tenosynovitis flexor digitorum longus tendon, diabetic neuropathic ulcer 2.5 cm x 1.75 cm x 1.0 cm I identified the patient and participated in the time-out.: Yes Procedure Operation Date: 11/26/21 08:00 Actual Procedures p Incision and Drainage Right Medial foot abscess, Irrigation and Debridement posterior tendon tear with resection posterior tibial tendon, tenosynovectomy flexor digitorum longus tendon, irrigation debridement 2.5 cm x 1.75 cm x 1.0 cm medial ankle diabetic neuropathic ulcer including skin, subcutaneous tissue, fascia, tendon sheathAkhil Montaño DO Surgeon Akhil Montaño DO Stained Glass Painter Robb Guzman PA-C Estimated Blood Loss 2 Findings Consistent with Post-Op Diagnosis Specimens Aerobic, anaerobic, Gram stain abscess medial foot Drains Other (1/2 inch iodoform gauze drains x2 separate sites) Anesthesia Type General Regional Complications none Disposition Accompanied Patient To Recovery: Yes
[2021-11-26] MEDS: fentaNYL citrate 100 MCG/2 ML VIAL IV PRN ×2 (14:02→14:07)
--- NOTE | 2021-11-26 14:15 | Anesthesiology Progress Note ---
Date of Service November 26, 2021 Anesthesia Post Procedure Vital Signs Vital Signs: Temp Pulse Pulse Resp BP BP Pulse Ox 11/26/21 14:10 84 16 146/79 H 94 11/26/21 14:00 79 16 160/87 H 99 11/26/21 13:50 81 17 156/86 H 99 11/26/21 13:40 97.5 F L 78 16 150/65 H 96 11/26/21 07:29 97.9 F 85 16 167/79 H 94 11/25/21 21:45 98.4 F 85 18 152/71 H 91 11/25/21 16:58 98.2 F 82 16 162/74 H 93 Pain Intensity Right Foot: Pain Intensity: 7 Transfer of Care Handoff Completed per policy Notes Mental Status: alert / awake / arousable and participated in evaluation Patient Amnestic to Procedure: Yes Nausea / Vomiting: adequately controlled Pain: adequately controlled Airway Patency, RR, SpO2: stable & adequate BP & HR: stable & adequate Hydration State: stable & adequate Anesthetic Complications: no major complications apparent and Pt Satisfied with anesthetic care
[2021-11-26] MEDS ORDERED: NALOXONE HCL 0.4 MG/1 ML VIAL/CARP IV PRN (14:37)
[2021-11-26] MEDS ORDERED: ALUMINUM/MAGNESIUM SUSP 30 ML UDC PO PRN (14:37)
[2021-11-26] MEDS ORDERED: SODIUM CHLORIDE 0.9% 1000ML 1,000 ML IV SCH (14:37)
[2021-11-26] MEDS ORDERED: METOCLOPRAMIDE HCL INJ 5 MG/ML 2 ML VIAL IV PRN (14:37)
[2021-11-26] MEDS ORDERED: bisacodyL 10 MG SUPP PR PRN (14:37)
[2021-11-26] MEDS ORDERED: MAGNESIUM HYDROXIDE SUSP 30 ML UDC PO PRN (14:37)
[2021-11-26] MEDS: LACTATED RINGER'S 1,000 ML IV SCH ×2 (14:39→16:47)
[2021-11-26] MEDS: METOPROLOL SUCC 50MG EXT REL TAB PO SCH ×2 (14:43→14:45)
[2021-11-26] MEDS: lisinopril 10 MG TAB PO SCH ×2 (14:43→14:45)
[2021-11-26] MEDS ORDERED: Nursing to Pharmacy Communication SCH (15:00)
[2021-11-26] MEDS: ONDANSETRON INJ 2 MG/ML 2 ML VIAL IV PRN ×2 (15:23→22:51)
--- NOTE | 2021-11-26 15:31 | Hospitalist Progress Note ---
Date of Service November 26, 2021 Assessment & Plan (1) Ankle ulcer due to DM: Plan: Worsening discharge and pain since stopping antibiotics just 4 days prior to admission. WBC elevated 12.67, ESR 48 (previously 21), CRP 1.4 (previously 0.81) on admission MRI ankle w/wo IV contrast - tenosynovitis, increasing subcutaneous edema along medial aspect of ankle concerning for worsening cellulitis, fluid collection seen deep to medial soft tissue ulceration Orthopedics - s/p I&D performed by Dr Montaño today 11/26. Blood cultures negative at 48 hours. Continue IV cefepime. Given CELSO 2 for vancomycin will switch to daptomycin. Consult ID for duration of antibiotics. Recent US arterial Doppler performed in August - no need to repeat this. (2) Cellulitis of foot, right: Plan: Mild surrounding right medial ankle ulcer without underlying fluctuance although just cleaned at wound care clinic when seen. Surgical dressing not removed to inspect today. Patient is non-septic. (3) Osteomyelitis of great toe of right foot: Plan: Chronic but possibly where recurrent infection is coming from. stable per MRI findings. suspect acute worsening due to fluid collection and cellulitis as above. (4) HTN (hypertension): Plan: Continue metoprolol succinate 50mg PO QAM, lisinopril 10mg PO QAM (5) Diabetic peripheral neuropathy: Plan: Continue nortriptyline 100mg PO HS (6) Tenosynovitis of ankle: Plan: Infected tenosynovitis. Treatment as above. (7) PAD (peripheral artery disease): Plan: US arterial doppler in August without hemodynamically significant stenosis Continue ASA 81mg PO daily (8) Diabetes mellitus type 2, uncontrolled: Plan: HbA1C 10.5 in October, no need to repeat this Hold metformin. Continue Lantus 15 units SQ HS Novolog sliding scale: Goal BSG Range: Low 110 mg/dL, High 140 mg/dL Correction Factor: 45 mg/dL/unit Carbohydrate ratio = 15 g/unit BSGs ACHS if eating, q6h if npo Plan: VTE Prophylaxis - Lovenox 40mg SQ daily Diet - T2DM, heart healthy Disposition - switch to admission to med/surg Admission and Anticipated Discharge Date Admission Date: November 26, 2021 Subjective Patient seen post surgery today. No fever or chills. Pain under control with IV dilaudid. MRSA growing from wound culture taken at wound care clinic, Vancomycin CELSO 2. Review of Systems Review of Systems: All systems reviewed & are unremarkable except as noted in Subjective Physical Exam Constitutional: WD/WN, vitals as above Respiratory: normal respiratory effort, lungs clear to auscultation Cardiovascular: RRR, no murmur, no edema Neurologic: moves all extremities and awake; not confused Psychiatric: A+Ox3, euthymic affect Results & Data Results & Data ([facility]) Vital Signs (Past 12 Hours) Vital Signs Temp Pulse Pulse Resp BP BP Pulse Ox 11/26/21 15:03 36.8 C 86 16 181/93 H 93 11/26/21 14:30 36.5 C 84 14 171/80 H 92 11/26/21 14:20 36.4 C L 81 15 153/83 H 94 11/26/21 14:10 84 16 146/79 H 94 11/26/21 14:00 79 16 160/87 H 99 11/26/21 13:50 81 17 156/86 H 99 11/26/21 13:40 36.4 C L 78 16 150/65 H 96 11/26/21 07:29 36.6 C 85 16 167/79 H 94 PG Care Time/CCT Total # of Minutes Spent Total Time Spent with Patient: Total time spent is greater than 50% in coordination of care (as documented) at patient's floor/unit and/or counseling patient: Coding Level of Care Code 34173 Subseq Hosp Care Lvl 2 Diagnoses Ankle ulcer due to DM E11.622; L97.309 Cellulitis of foot, right L03.115 Osteomyelitis of great toe of right foot M86.9 HTN (hypertension) I10 Diabetic peripheral neuropathy E11.42 Tenosynovitis of ankle M65.9 PAD (peripheral artery disease) I73.9 Diabetes mellitus type 2, uncontrolled E11.65
--- NOTE | 2021-11-26 15:38 | Operative Report (OR) ---
DATE OF PROCEDURE: 11/26/2021. PREOPERATIVE DIAGNOSES: 1. Right foot medial deep abscess. 2. Posterior tibial tendon septic tenosynovitis. 3. Septic tenosynovitis of the flexor digitorum longus tendon. 4. Posterior tibial tendon rupture. 5. Diabetic neuropathic ulcer of the medial ankle measuring 2.5 x 1.75 x 1.0 cm. POSTOPERATIVE DIAGNOSES: 1. Right foot medial deep abscess. 2. Posterior tibial tendon septic tenosynovitis. 3. Septic tenosynovitis of the flexor digitorum longus tendon. 4. Posterior tibial tendon rupture. 5. Diabetic neuropathic ulcer of the medial ankle measuring 2.5 x 1.75 x 1.0 cm. PROCEDURE: 1. Right foot incision and drainage deep medial abscess. 2. Irrigation and debridement, posterior tibial tendon tear with resection of the posterior tibial t endon. 3. Tenosynovectomy of the posterior tibial tendon and flexor digitorum longus tendons. 4. Irrigation and debridement, medial ankle diabetic neuropathic ulcer measuring 2.5 x 1.75 x 1.0 cm including skin, subcutaneous tissue, fascia and tendon sheath. SURGEON: Akhil Montaño DO. EQUIPMENT DRIVER: Robb Guzman PA-C who was present for patient positioning, sterile prep and drape, m anagement of retractors and instruments. He was present through the critical portions of the case inc luding wound closure, application of sterile dressing and transport of the patient to recovery. ANESTHESIA: General, regional. SPECIMENS: Aerobic, anaerobic, Gram stain, medial abscess of the foot. DRAINS: 1/2 inch iodoform gauze drains two separate sites. COMPLICATIONS: None. BLOOD LOSS: 2 mL. PERTINENT HISTORY: This is a 56-year-old female who has had a recent difficulty with diabetic ulcera tion medial ankle, septic tenosynovitis of the medial ankle tendons, stemming initially from osteomye litis identified in the great toe, second toe and third toes. She has undergone several prior surgic al procedures as part of her limb salvage and continued to have some difficulty along the medial ankl e with recent evidence of abscess, deep in the medial foot confirmed with MRI. She had recent worsen ing of her condition with redness, swelling, increased drainage and pain. MRI demonstrated abscess i n the medial foot. The patient was then scheduled for surgery as indicated. All potential risks, benefits, complications, alternatives, rehab potential for incomplete relief of symptoms, need for further surgery, DVT, PE, , persistent pain, swelling, scarring, weakness, ne urovascular injury, wound complications, need for further surgery or amputation was discussed with e patient, explained to the patient that she may lose the posterior tibial tendon due to chronic infe ction and rupture, which would require use of a brace. She understands all potential risks and benef its, she decided to proceed with the procedure as indicated. DESCRIPTION OF PROCEDURE: The patient was taken to the operative suite and placed supine on the oper ating room table. After review of consent and identification of proper operative site, the patient w as anesthetized, a tourniquet was placed high on the right lower extremity over cast padding. Right lower extremity was then sterilely prepped and draped in the usual sterile fashion, partially elevate d and partially exsanguinated with an Esmarch bandage, and tourniquet inflated to 350 mmHg. Care was taken to avoid exsanguination distal due to the nature of the infection. Next, the surgical timeout was then performed, and then a 15 blade scalpel was used to sharply debrid e around the skin, subcutaneous tissue, fascia and tendon sheath along the medial ankle ulcer measuri ng 2.5 x 1.75 x 1.0 cm. After all sharp debridement was completed, the posterior tibial tendon was n oted to be completely ruptured with features consistent with chronic infection throughout the tendon with tenosynovitis. Tenosynovectomy was then performed of the proximal and distal extents of the pos terior tibial tendon, however, was noted to be completely ruptured with no residual connected fibers and due to the nature of the infection and exposure with chronic infection of the tendon, it was deci ded to resect the distal aspect of the tendon and then debride the distal aspect of the proximal port ion of the tendon with a 15 blade scalpel. After full detachment from the medial navicular, the vanessa ged portion of the tendon was passed off and the flexor digitorum longus tendon was visualized and a hypertrophic tenosynovium was noted surrounding it consistent with tenosynovitis. Next, after use of the rongeur, tenosynovectomy was then performed of the flexor digitorum longus ten don down to healthy-appearing tendon. Next, a 15 blade scalpel was used to make an incision along e medial foot roughly at the level of the talonavicular joint with a 15 blade scalpel. This incision was then deepened through skin and subcutaneous tissue. Meticulous hemostasis was achieved with columba ctrocautery. Sujata rakes were applied to retract soft tissue. The interval between the abductor hernandez ucis and the first metatarsal was then developed with a tenotomy scissor. Careful sharp and dull dis section was performed down to the level of the master knot of Braxton. Small abscess pocket was noted i n this region as predicted by the MRI. A culture was obtained for aerobic, anaerobic, Gram stain whi ch was then passed off. The site was then irrigated with pulsatile lavage, use of a small curette to curettage the surrounding tissue and then a 1/2 inch iodoform gauze drain was then placed and then a separate tracking tunnel was made with a hemostat and a 15 blade scalpel to avoid placing it through the incision site. Next, the pulsatile lavage was then used to lavage the medial ankle ulceration and the tissue was the n mobilized using tenotomy scissors followed by placement of 1/2 inch iodoform gauze drain with tunne ling performed with a hemostat and a 15 blade scalpel slightly superior to avoid passage through the incision site and the ulcer site. Packing was placed around the area of the infected posterior tibial tendon had been previously resected as noted above. Next, a full-thickness skin and tissue closure was performed along the medial ulcer site to reduce the sized and near approximation with combination of 3-0 nylon and 2-0 nylon sutures. The medial foot incision was closed, full thickness with interr upted 2-0 nylon and 3-0 nylon sutures. Next, the incision sites were injected with 0.5% Marcaine arnulfo in with a regional block. The sterile compressive dressing was applied, overwrapped with an Mikey wrap . The tourniquet was released. The patient was awakened and taken to recovery in stable condition. Job ID: [id number]
[2021-11-26] MEDS: DAPTOmycin 200 MG in SYRINGE 0 ML IV SCH (17:16)
[2021-11-26] MEDS: HYDROmorphone INJ 1 MG/ML SYRINGE IV PRN (20:34)
[2021-11-26] MEDS: NORTRIPTYLINE HCL 25 MG CAP PO SCH (20:35)
[2021-11-26] MEDS: ENOXAPARIN INJ 40 MG/0.4 ML SYR SQ SCH (20:35)
[2021-11-26] MEDS: rOPINIRole HCL 2 MG TABLET PO SCH (20:36)
[2021-11-26] MEDS: SENNA 8.6 MG TAB PO SCH (20:36)
[2021-11-26] MEDS: ZOLPIDEM TARTRATE 10 MG TAB PO SCH (20:37)
[2021-11-26] MEDS: DOCUSATE SODIUM 100 MG CAP PO SCH (20:37)
[2021-11-26] MEDS: diphenhydrAMINE Capsule 25 MG CAP PO PRN (20:44)
[2021-11-26] MEDS: INSULIN GLARGINE SOLOSTAR 100 UNITS/ML 3 ML PEN SC SCH (20:48)
[2021-11-26] MEDS ORDERED: diphenhydrAMINE 50 MG/ML VIAL IV STA (21:22)
--- NOTE | 2021-11-27 02:05 | Communication Note ---
Date of Service: November 27, 2021 Messaged earlier in evening about patient unhappy about pain control regimen. Assessed patient. Patient had recently received 1mg IV dilaudid. Informed pat ient if there is breakthrough pain to have nursing notify me. Deferring to day team without changing regimen. Per chart review, it appears that patient was previously on Dilaudid 0.5mg q3h prn and this was kept while Dilaudid 1mg prn for severe 9-10/10 pain was added. Patient under impression that her regimen was made less frequent. Currently, patient is receiving the 0.5mg IV dilaudids in betwen the 1mg IV dilaudids. Review if appropriate.
[2021-11-27] MEDS: HYDROmorphone INJ 1 MG/ML SYRINGE IV PRN ×4 (02:06→20:03)
[2021-11-27] MEDS: oxyCODONE/ACETAMINOPHEN 5mg/325mg TAB PO PRN ×4 (03:15→18:49)
[2021-11-27] MEDS: LACTATED RINGER'S 1,000 ML IV SCH (04:59)
[2021-11-27] MEDS: HYDROmorphone INJ 0.5 MG/0.5 ML SYR IV PRN ×4 (05:00→23:02)
[2021-11-27] MEDS: CEFEPIME 2,000 MG in SYRINGE 0 ML IV SCH ×3 (05:03→22:56)
[2021-11-27 06:16] LABS: Basophils # (auto) 0.03 K/uL (0-0.2); Basophils % (auto) 0.2 %; Eosinophils # (auto) 0.48 K/uL (0-0.5); Eosinophils % (auto) 3.5 %; Hematocrit (blood only) 33.2 % (37-47); Hemoglobin 10.7 g/dL (12.0-16.0); Immature Granulocytes # (auto) 0.02 K/uL (0.00-0.02); Immature Granulocytes % (auto) 0.1 %; Lymphocytes % (auto) 12.6 %; Mean Corpuscular Hemoglobin 25.4 pg (25-34); Mean Corpuscular Hgb Conc 32.2 g/dL (32-36); Mean Corpuscular Volume 78.7 fL (80-100); Mean Platelet Volume 9.8 fL (7.4-10.4); Neutrophils % (auto) 69.6 %; Platelet Count 350 K/uL (130-400); RDW Coefficient of Variation 14.7 % (11.5-14.5); RDW Standard Deviation 42.6 fL (36.4-46.3); Red Blood Count 4.22 M/uL (4.2-5.4); White Blood Count 13.53 K/uL (4.8-10.8)
[2021-11-27 06:43] LABS: Anion Gap 4 (3-11); BUN Creatinine Ratio 20.8 (10-20); Blood Urea Nitrogen 11 mg/dl (6-23); Calcium 8.8 mg/dl (8.5-10.1); Carbon Dioxide 29 mmol/L (21-32); Chloride 100 mmol/L (98-107); Creatinine Clr Calc Pharmacy 102.4 ml/min; Est GFR (African American) 122.2 ml/min; Est GFR (Non-African American) 105.4 ml/min; Glucose 121 mg/dl (70-99(Fasting)); Sodium 133 mmol/L (136-145)
[2021-11-27] MEDS: ASPIRIN 81 MG ECTAB PO SCH (08:28)
[2021-11-27] MEDS: DOCUSATE SODIUM 100 MG CAP PO SCH ×2 (08:28→20:11)
[2021-11-27] MEDS: lisinopril 10 MG TAB PO SCH (08:28)
[2021-11-27] MEDS: METOPROLOL SUCC 50MG EXT REL TAB PO SCH (08:29)
[2021-11-27] MEDS: MULTIVITAMIN TAB PO SCH (08:29)
[2021-11-27] MEDS: INSULIN ASPART PER UNIT SC SCH ×4 (08:32→20:54)
--- NOTE | 2021-11-27 13:38 | Orthopedic Progress Note ---
Date of Service November 27, 2021 Assessment & Plan (1) Ankle ulcer due to DM: Plan: POD #1 s/p 1. Right foot incision and drainage deep medial abscess. 2. Irrigation and debridement, posterior tibial tendon tear with resection of the posterior tibial tendon. 3. Tenosynovectomy of the posterior tibial tendon and flexor digitorum longus tendons. 4. Irrigation and debridement, medial ankle diabetic neuropathic ulcer measuring 2.5 x 1.75 x 1.0 cm including skin, subcutaneous tissue, fascia and tendon sheath. Dressing kept in place today. Plan will be for dressing change tomorrow and removing some of the packing from the 2 separate sites. Awaiting sensitivity results from intraoperative cultures. Cultures growing staph species. Nonweightbearing on the right lower extremity. Pain control Discharge planninguncertain at this time. I discussed the patient possible oral versus IV antibiotics. (2) Surgical wound, non healing: (3) Tenosynovitis of ankle: Admission and Anticipated Discharge Date Admission Date: November 26, 2021 Subjective Patient states the pain is "unreal" today. States she is had ice on her foot most of the day to help with the pain. Fair control the pain with current pain medications. Physical Exam Constitutional: WD/WN, vitals as above no acute distress ENMT: external ear and nose normal, oropharynx normal Neck: trachea midline Respiratory: normal respiratory effort, lungs clear to auscultation Cardiovascular: Rate/Rhythm: regular rate and regular rhythm Gastrointestinal (Abdomen): normal bowel sounds, soft, nontender, no hepatosplenomegaly Musculoskeletal: Ankle: + surgical incision (Dressing is C/C/I right ankle); no skin erythema and no ecchymosis Psychiatric: A+Ox3, euthymic affect Speech: normal rate/rhythm/volume of speech Lymphatic: no cervical or axillary lymphadenopathy Results & Data ([facility]) Vital Signs (Past 12 Hours) Vital Signs Temp Pulse Resp BP Pulse Ox 11/27/21 12:16 37.5 C 92 H 16 141/66 H 96 11/27/21 07:36 37.5 C 84 16 172/78 H 95 11/27/21 03:17 37.3 C 85 18 115/62 95 Laboratory Results Spec: [id number] Collected: 11/26/21-UNK Received: 11/26/21-[address] [facility] [address]: Akhil MontañoD.O. Copy To: Silvestre Best MD Source: Foot,Right OV Order: Ordered: Aer/Lucero Cult/Sm Comments: Comment right medial foot abcess Procedure Result Verified Site Gram Stain Final 11/26/21-1544 Gram Stain Result Rare WBCs Seen No Organisms Seen Aero/Lucero Cult Preliminary 11/27/21-1057 Organism 1 Staphylococcus species Quantity Few Sens Sensitivities to Follow
[2021-11-27] MEDS: LORazepam 1 MG TAB PO PRN (13:42)
[2021-11-27] MEDS ORDERED: VANCOMYCIN TROUGH ONE (15:30)
[2021-11-27] MEDS: DAPTOmycin 200 MG in SYRINGE 0 ML IV SCH (16:46)
--- NOTE | 2021-11-27 17:35 | Hospitalist Progress Note ---
Date of Service November 27, 2021 Assessment & Plan (1) Ankle ulcer due to DM: Plan: Worsening discharge and pain since stopping antibiotics just 4 days prior to admission. WBC elevated 12.67, ESR 48 (previously 21), CRP 1.4 (previously 0.81) on admission MRI ankle w/wo IV contrast - tenosynovitis, increasing subcutaneous edema along medial aspect of ankle concerning for worsening cellulitis, fluid collection seen deep to medial soft tissue ulceration Orthopedics - s/p I&D performed by Dr Montaño 11/26. Blood cultures negative at 48 hours. Continue IV cefepime. Given CELSO 2 for vancomycin switched to daptomycin on 11/26. Consult ID pending. Recent US arterial Doppler performed in August - no need to repeat this. (2) Cellulitis of foot, right: Plan: Mild surrounding right medial ankle ulcer. Surgical dressing not removed to inspect today. Patient is non-septic. (3) Osteomyelitis of great toe of right foot: Plan: Chronic but possibly where recurrent infection is coming from. stable per MRI findings. suspect acute worsening due to fluid collection and cellulitis as above. (4) HTN (hypertension): Plan: Continue metoprolol succinate 50mg PO QAM, lisinopril 10mg PO QAM (5) Diabetic peripheral neuropathy: Plan: Continue nortriptyline 100mg PO HS (6) Tenosynovitis of ankle: Plan: Infected tenosynovitis. Treatment as above. (7) PAD (peripheral artery disease): Plan: US arterial doppler in August without hemodynamically significant stenosis Continue ASA 81mg PO daily (8) Diabetes mellitus type 2, uncontrolled: Plan: HbA1C 10.5 in October, no need to repeat this Hold metformin. Continue Lantus 15 units SQ HS Novolog sliding scale: Goal BSG Range: Low 110 mg/dL, High 140 mg/dL Correction Factor: 45 mg/dL/unit Carbohydrate ratio = 15 g/unit BSGs ACHS if eating, q6h if npo Appears well controlled on this regimen Plan: VTE Prophylaxis - Lovenox 40mg SQ daily Diet - T2DM, heart healthy Disposition - continued admission on med/surg Admission and Anticipated Discharge Date Admission Date: November 26, 2021 Subjective Reports significant pain this morning but improved over the course of the day. Some confusion about her pain medication and initially she thought I'd reduced the frequency but actually just added 1mg Dilaudid at a different frequency than the 0.5mg dose. No fever or chills. ID consult pending. WBC increased however this was post operative. Staph growing from surgical culture in addition to wound care clinic culture. Blood culture negative at 48 hours. Discussed awaiting ID consult and likely need for PICC line again. Review of Systems Review of Systems: All systems reviewed & are unremarkable except as noted in Subjective Physical Exam Constitutional: WD/WN, vitals as above Eyes: + anicteric sclerae; normal pupil size Respiratory: normal respiratory effort, lungs clear to auscultation Cardiovascular: RRR, no murmur, no edema Gastrointestinal (Abdomen): normal bowel sounds, soft, nontender, no hepatosplenomegaly Skin: no rashes, warm and dry (surgical dressing not removed, no cellulitis above this) Neurologic: moves all extremities and awake; not confused Psychiatric: A+Ox3, euthymic affect Results & Data Results & Data ([facility]) Vital Signs (Past 12 Hours) Vital Signs Temp Pulse Resp BP Pulse Ox 11/27/21 14:58 37 C 89 16 141/71 H 94 11/27/21 12:16 37.5 C 92 H 16 141/66 H 96 11/27/21 07:36 37.5 C 84 16 172/78 H 95 PG Care Time/CCT Total # of Minutes Spent Total Time Spent with Patient: Total time spent is greater than 50% in coordination of care (as documented) at patient's floor/unit and/or counseling patient: Coding Level of Care Code 44505 Subseq Hosp Care Lvl 2 Diagnoses Ankle ulcer due to DM E11.622; L97.309 Cellulitis of foot, right L03.115 Osteomyelitis of great toe of right foot M86.9 HTN (hypertension) I10 Diabetic peripheral neuropathy E11.42 Tenosynovitis of ankle M65.9 PAD (peripheral artery disease) I73.9 Diabetes mellitus type 2, uncontrolled E11.65
[2021-11-27] MEDS: ENOXAPARIN INJ 40 MG/0.4 ML SYR SQ SCH (20:00)
[2021-11-27] MEDS: rOPINIRole HCL 2 MG TABLET PO SCH (20:01)
[2021-11-27] MEDS: NORTRIPTYLINE HCL 25 MG CAP PO SCH (20:02)
[2021-11-27] MEDS: SENNA 8.6 MG TAB PO SCH (20:11)
[2021-11-27] MEDS: ZOLPIDEM TARTRATE 10 MG TAB PO SCH (20:12)
[2021-11-27] MEDS: INSULIN GLARGINE SOLOSTAR 100 UNITS/ML 3 ML PEN SC SCH (20:54)
[2021-11-28] MEDS: HYDROmorphone INJ 1 MG/ML SYRINGE IV PRN (02:10)
[2021-11-28] MEDS: CEFEPIME 2,000 MG in SYRINGE 0 ML IV SCH ×3 (05:41→23:03)
[2021-11-28] MEDS: HYDROmorphone INJ 0.5 MG/0.5 ML SYR IV PRN ×6 (05:41→20:41)
[2021-11-28] MEDS: oxyCODONE/ACETAMINOPHEN 5mg/325mg TAB PO PRN ×3 (08:05→18:13)
[2021-11-28] MEDS: ONDANSETRON 4 MG OD TAB PO PRN (09:02)
[2021-11-28] MEDS: INSULIN ASPART PER UNIT SC SCH ×4 (09:03→20:53)
[2021-11-28] MEDS: MULTIVITAMIN TAB PO SCH (10:28)
[2021-11-28] MEDS: ASPIRIN 81 MG ECTAB PO SCH (10:28)
[2021-11-28] MEDS: METOPROLOL SUCC 50MG EXT REL TAB PO SCH (10:28)
[2021-11-28] MEDS: DOCUSATE SODIUM 100 MG CAP PO SCH ×2 (10:28→20:45)
[2021-11-28] MEDS: lisinopril 10 MG TAB PO SCH (10:28)
[2021-11-28] MEDS: LORazepam 1 MG TAB PO PRN (10:29)
--- NOTE | 2021-11-28 11:13 | Hospitalist Progress Note ---
Date of Service November 28, 2021 Assessment & Plan (1) Ankle ulcer due to DM: Plan: Worsening discharge and pain since stopping antibiotics just 4 days prior to admission. WBC elevated 12.67, ESR 48 (previously 21), CRP 1.4 (previously 0.81) on admission. MRI ankle w/wo IV contrast - tenosynovitis, increasing subcutaneous edema along medial aspect of ankle concerning for worsening cellulitis, fluid collection seen deep to medial soft tissue ulceration. Orthopedics - s/p I&D performed by Dr Montaño 11/26. Blood cultures negative at 48 hours. Discussed PICC line with the patient today but she wishes to await ID consult previously. Continue IV cefepime and daptomycin. Recent US arterial Doppler performed in August - no need to repeat this. Consult ID pending. (2) Cellulitis of foot, right: Plan: Mild surrounding right medial ankle ulcer. Surgical dressing not removed to inspect today. Patient is non-septic. (3) Osteomyelitis of great toe of right foot: Plan: Chronic but possibly where recurrent infection is coming from. stable per MRI findings. suspect acute worsening due to fluid collection and cellulitis as above. (4) HTN (hypertension): Plan: Continue metoprolol succinate 50mg PO QAM, lisinopril 10mg PO QAM (5) Diabetic peripheral neuropathy: Plan: Continue nortriptyline 100mg PO HS (6) Tenosynovitis of ankle: Plan: Infected tenosynovitis. Treatment as above. (7) PAD (peripheral artery disease): Plan: US arterial doppler in August without hemodynamically significant stenosis Continue ASA 81mg PO daily (8) Diabetes mellitus type 2, uncontrolled: Plan: HbA1C 10.5 in October, no need to repeat this Hold metformin. Continue Lantus 15 units SQ HS Novolog sliding scale: Goal BSG Range: Low 110 mg/dL, High 140 mg/dL Correction Factor: 45 mg/dL/unit Carbohydrate ratio = 15 g/unit BSGs ACHS if eating, q6h if npo Appears well controlled on this regimen Plan: VTE Prophylaxis - Lovenox 40mg SQ daily Diet - T2DM, heart healthy Disposition - continued admission on med/surg Admission and Anticipated Discharge Date Admission Date: November 26, 2021 Subjective Pain again much worse overnight, appears to be better controlled during the day time. No associated leg movements. Upset no-one told her she had staph infection and she had to hear this from the wound clinic. I explained this is the broad category of bacteria and more precisely she has MRSA which I have previously told her. Review of Systems Review of Systems: All systems reviewed & are unremarkable except as noted in Subjective Physical Exam Constitutional: WD/WN, vitals as above Respiratory: normal respiratory effort, lungs clear to auscultation Cardiovascular: RRR, no murmur, no edema Vessels: dorsalis pedis pulses present Skin: no rashes, warm and dry (surgical dressing not removed, no cellulitis above this) Psychiatric: A+Ox3, euthymic affect Results & Data Results & Data ([facility]) Vital Signs (Past 12 Hours) Vital Signs Temp Pulse Resp BP Pulse Ox 11/28/21 07:17 37.0 C 91 H 16 173/89 H 95 PG Care Time/CCT Total # of Minutes Spent Total Time Spent with Patient: Total time spent is greater than 50% in coordination of care (as documented) at patient's floor/unit and/or counseling patient: Coding Level of Care Code 63349 Subseq Hosp Care Lvl 2 Diagnoses Ankle ulcer due to DM E11.622; L97.309 Cellulitis of foot, right L03.115 Osteomyelitis of great toe of right foot M86.9 HTN (hypertension) I10 Diabetic peripheral neuropathy E11.42 Tenosynovitis of ankle M65.9 PAD (peripheral artery disease) I73.9 Diabetes mellitus type 2, uncontrolled E11.65
[2021-11-28] MEDS: DAPTOmycin 200 MG in SYRINGE 0 ML IV SCH (16:36)
--- NOTE | 2021-11-28 19:46 | Orthopedic Progress Note ---
Date of Service November 28, 2021 Assessment & Plan (1) Ankle ulcer due to DM: Plan: POD #2 s/p 1. Right foot incision and drainage deep medial abscess. 2. Irrigation and debridement, posterior tibial tendon tear with resection of the posterior tibial tendon. 3. Tenosynovectomy of the posterior tibial tendon and flexor digitorum longus tendons. 4. Irrigation and debridement, medial ankle diabetic neuropathic ulcer measuring 2.5 x 1.75 x 1.0 cm including skin, subcutaneous tissue, fascia and tendon sheath. Dressing changed today. Plan will be for dressing change tomorrow and advancing packing Awaiting sensitivity results from intraoperative cultures. Cultures growing MRSA. Nonweightbearing on the right lower extremity. Pain control Discharge planninguncertain at this time. (2) Surgical wound, non healing: (3) Tenosynovitis of ankle: Admission and Anticipated Discharge Date Admission Date: November 26, 2021 Subjective Patient resting in bed comfortably. Complaint of pain. States she is emotionally drained. No other complaints. Denies chest pain, sob, dizziness, headache, fever, chills. Review of Systems Review of Systems: All systems reviewed & are unremarkable except as noted in Subjective Physical Exam Physical Exam: Right medial foot and ankle incisions are clean and intact. Mild maceration. no drainage. Mild surrounding erythema. Distal incision packing pulled. Proximal incision packing advanced. No sterile dressing applied. No calf tenderness. N/v status and sensation intact. Results & Data ([facility]) Vital Signs (Past 12 Hours) Vital Signs Temp Pulse Resp BP Pulse Ox 11/28/21 14:55 37.5 C 84 16 123/69 97
[2021-11-28] MEDS: ENOXAPARIN INJ 40 MG/0.4 ML SYR SQ SCH (20:42)
[2021-11-28] MEDS: NORTRIPTYLINE HCL 25 MG CAP PO SCH (20:44)
[2021-11-28] MEDS: SENNA 8.6 MG TAB PO SCH (20:44)
[2021-11-28] MEDS: rOPINIRole HCL 2 MG TABLET PO SCH (20:45)
[2021-11-28] MEDS: ZOLPIDEM TARTRATE 10 MG TAB PO SCH (20:54)
[2021-11-28] MEDS: INSULIN GLARGINE SOLOSTAR 100 UNITS/ML 3 ML PEN SC SCH (20:54)
[2021-11-29] MEDS: HYDROmorphone INJ 0.5 MG/0.5 ML SYR IV PRN ×7 (01:21→23:00)
[2021-11-29] MEDS: oxyCODONE/ACETAMINOPHEN 5mg/325mg TAB PO PRN ×3 (04:21→19:00)
[2021-11-29] MEDS: LORazepam 1 MG TAB PO PRN ×2 (05:03→13:50)
[2021-11-29] MEDS: CEFEPIME 2,000 MG in SYRINGE 0 ML IV SCH ×3 (05:51→23:00)
[2021-11-29 06:39] LABS: Basophils # (auto) 0.03 K/uL (0-0.2); Basophils % (auto) 0.3 %; Eosinophils # (auto) 0.37 K/uL (0-0.5); Eosinophils % (auto) 3.6 %; Hematocrit (blood only) 33.4 % (37-47); Hemoglobin 10.7 g/dL (12.0-16.0); Immature Granulocytes # (auto) 0.02 K/uL (0.00-0.02); Immature Granulocytes % (auto) 0.2 %; Lymphocytes # (auto) 1.72 K/uL (1.2-3.4); Lymphocytes % (auto) 16.8 %; Mean Corpuscular Hemoglobin 25.2 pg (25-34); Mean Corpuscular Volume 78.8 fL (80-100); Mean Platelet Volume 9.4 fL (7.4-10.4); Monocytes # (auto) 1.14 K/uL (0.11-0.59); Monocytes % (auto) 11.1 %; Neutrophils # (auto) 6.97 K/uL (1.4-6.5); Platelet Count 317 K/uL (130-400); RDW Coefficient of Variation 14.8 % (11.5-14.5); RDW Standard Deviation 42.5 fL (36.4-46.3); Red Blood Count 4.24 M/uL (4.2-5.4); White Blood Count 10.25 K/uL (4.8-10.8)
[2021-11-29 06:58] LABS: BUN Creatinine Ratio 25.6 (10-20); C Reactive Protein 10.38 mg/dl (0-0.5); Calcium 9.1 mg/dl (8.5-10.1); Creatinine Clr Calc Pharmacy 126.2 ml/min; Est GFR (African American) 130.9 ml/min; Est GFR (Non-African American) 112.9 ml/min; Potassium 4.2 mmol/L (3.5-5.1)
[2021-11-29] MEDS: ASPIRIN 81 MG ECTAB PO SCH (09:46)
[2021-11-29] MEDS: MULTIVITAMIN TAB PO SCH (09:46)
[2021-11-29] MEDS: DOCUSATE SODIUM 100 MG CAP PO SCH ×2 (09:46→21:03)
[2021-11-29] MEDS: lisinopril 10 MG TAB PO SCH (09:46)
[2021-11-29] MEDS: METOPROLOL SUCC 50MG EXT REL TAB PO SCH (09:46)
[2021-11-29] MEDS: INSULIN ASPART PER UNIT SC SCH ×4 (09:53→21:04)
[2021-11-29] MEDS ORDERED: DAPTOmycin 300 MG in SYRINGE 0 ML IV SCH (14:00)
--- NOTE | 2021-11-29 14:02 | Hospitalist Progress Note ---
Date of Service November 29, 2021 Assessment & Plan (1) Ankle ulcer due to DM: Plan: Worsening discharge and pain since stopping antibiotics just 4 days prior to admission. WBC elevated 12.67, ESR 48 (previously 21), CRP 1.4 (previously 0.81) on admission. MRI ankle w/wo IV contrast - tenosynovitis, increasing subcutaneous edema along medial aspect of ankle concerning for worsening cellulitis, fluid collection seen deep to medial soft tissue ulceration. Orthopedics - s/p I&D performed by Dr Montaño 11/26. Blood cultures negative at 48 hours. Refusing PICC line prior to ID consult which appears to be reasonable Continue IV cefepime and daptomycin. Recent US arterial Doppler performed in August - no need to repeat this. Consult ID pending. (2) Cellulitis of foot, right: Plan: Mild surrounding right medial ankle ulcer. Surgical dressing not removed to inspect today. Patient is non-septic. (3) Osteomyelitis of great toe of right foot: Plan: Chronic but possibly where recurrent infection is coming from. stable per MRI findings. suspect acute worsening due to fluid collection and cellulitis as above. (4) HTN (hypertension): Plan: Continue metoprolol succinate 50mg PO QAM, lisinopril 10mg PO QAM (5) Diabetic peripheral neuropathy: Plan: Continue nortriptyline 100mg PO HS (6) Tenosynovitis of ankle: Plan: Infected tenosynovitis. Treatment as above. (7) PAD (peripheral artery disease): Plan: US arterial doppler in August without hemodynamically significant stenosis Continue ASA 81mg PO daily (8) Diabetes mellitus type 2, uncontrolled: Plan: HbA1C 10.5 in October, no need to repeat this Hold metformin. Continue Lantus 15 units SQ HS Novolog sliding scale: Goal BSG Range: Low 110 mg/dL, High 140 mg/dL Correction Factor: 45 mg/dL/unit Carbohydrate ratio = 15 g/unit BSGs ACHS if eating, q6h if npo Appears well controlled on this regimen Plan: VTE Prophylaxis - Lovenox 40mg SQ daily Diet - T2DM, heart healthy Disposition - continued admission on med/surg Admission and Anticipated Discharge Date Admission Date: November 26, 2021 Subjective Patient is very upset today. She tells me no one is listening to her about her pain. I explained her pain management has been escalated daily. I ask her what she wants from me but she just tells me to leave her alone. She doesn't want a picc line as she tells me Dr Montaño told her she doesn't need one on admission. We are awaiting ID consult. Review of Systems Review of Systems: All systems reviewed & are unremarkable except as noted in Subjective Physical Exam Physical Exam: Pt wishes to be left alone and declines further exam Constitutional: WD/WN, vitals as above Respiratory: normal respiratory effort Skin: no rashes, warm and dry (surgical dressing not removed, no cellulitis above this) Psychiatric: Orientation: alert and oriented x 3 Affect: + depressed affect and + tearful affect Results & Data Results & Data ([facility]) Vital Signs (Past 12 Hours) Vital Signs Temp Pulse Resp BP Pulse Ox 11/29/21 07:45 37 C 88 18 144/79 H 98 PG Care Time/CCT Total # of Minutes Spent Total Time Spent with Patient: Total time spent is greater than 50% in coordination of care (as documented) at patient's floor/unit and/or counseling patient: Coding Level of Care Code 67126 Subseq Hosp Care Lvl 2 Diagnoses Ankle ulcer due to DM E11.622; L97.309 Cellulitis of foot, right L03.115 Osteomyelitis of great toe of right foot M86.9 HTN (hypertension) I10 Diabetic peripheral neuropathy E11.42 Tenosynovitis of ankle M65.9 PAD (peripheral artery disease) I73.9 Diabetes mellitus type 2, uncontrolled E11.65
--- NOTE | 2021-11-29 16:07 | Orthopedic Progress Note ---
Date of Service November 29, 2021 Assessment & Plan (1) Ankle ulcer due to DM: Plan: POD #3 s/p 1. Right foot incision and drainage deep medial abscess. 2. Irrigation and debridement, posterior tibial tendon tear with resection of the posterior tibial tendon. 3. Tenosynovectomy of the posterior tibial tendon and flexor digitorum longus tendons. 4. Irrigation and debridement, medial ankle diabetic neuropathic ulcer measuring 2.5 x 1.75 x 1.0 cm including skin, subcutaneous tissue, fascia and tendon sheath. Continue daily dressing changes. Cultures growing MRSA and Prevotella. ID consult has been placed. I have discussed the case with Dr. Best briefly and we are going to wait for their input. I have also discussed with the patient that she still may require a PICC line for this infection of which she understands. Nonweightbearing on the right lower extremity. Pain control -continue as written for now. Discharge planninguncertain at this time. (2) Surgical wound, non healing: (3) Tenosynovitis of ankle: Admission and Anticipated Discharge Date Admission Date: November 26, 2021 Subjective Postop day 3 Patient sitting in bed awake and alert. Discussed her pain control. Currently she looks comfortable but states she does have throbbing off and on. She was talking about wanting a [employer]IST[employer] pump however we discussed that with only being truly soft tissue work that we need to try other means possibly at this time and continue the current pain regimen. No other complaints at this time. Physical Exam Physical Exam: Dressings removed. Remainder of iodoform packing removed from the proximal wound. No further packing in the wound noted.Her larger medial wound does have some maceration around the edges. Smaller wound does not have any maceration. Both wounds are well approximated. She does have an open area where the iodoform packing had been removed. This area is benign looking with no purulent drainage during iodoform removal. Wound was redressed with Adaptic, 4 x 4's, ABDs, Kerlix, Mikey wrap. Results & Data ([facility]) Vital Signs (Past 12 Hours) Vital Signs Temp Pulse Resp BP Pulse Ox 11/29/21 14:45 36.9 C 83 16 176/92 H 99 11/29/21 07:45 37 C 88 18 144/79 H 98
[2021-11-29] MEDS: rOPINIRole HCL 2 MG TABLET PO SCH (20:03)
[2021-11-29] MEDS: ENOXAPARIN INJ 40 MG/0.4 ML SYR SQ SCH (20:03)
[2021-11-29] MEDS: NORTRIPTYLINE HCL 25 MG CAP PO SCH (20:03)
--- NOTE | 2021-11-29 20:04 | Communication Note ---
Date of Service: November 29, 2021 Messaged by nursing about patient asking about her qhs prn srinivas. She already has this ordered since 11/25/21. Reviewed PDMP. Patient was on zolpidem 10mg qhs prn, rx'd in august, but since november, has been switched to the 12.5mg extended release zolpidem by Dr. Vince Vernon her outpatient pct. Because [facility] does not have the extended release version on formulary, will be providing the 10mg regular zolpidem (and not 12.5mg regular).
[2021-11-29] MEDS: SENNA 8.6 MG TAB PO SCH (21:03)
[2021-11-29] MEDS: ZOLPIDEM TARTRATE 10 MG TAB PO SCH (21:03)
[2021-11-29] MEDS: INSULIN GLARGINE SOLOSTAR 100 UNITS/ML 3 ML PEN SC SCH (21:04)
[2021-11-30] MEDS: HYDROmorphone INJ 0.5 MG/0.5 ML SYR IV PRN ×7 (02:02→20:38)
[2021-11-30] MEDS: LORazepam 1 MG TAB PO PRN ×2 (04:00→10:49)
[2021-11-30] MEDS: CEFEPIME 2,000 MG in SYRINGE 0 ML IV SCH (05:15)
[2021-11-30] MEDS: ONDANSETRON 4 MG OD TAB PO PRN (05:26)
[2021-11-30] MEDS: ASPIRIN 81 MG ECTAB PO SCH (08:27)
[2021-11-30] MEDS: lisinopril 10 MG TAB PO SCH (08:27)
[2021-11-30] MEDS: DOCUSATE SODIUM 100 MG CAP PO SCH ×2 (08:27→20:26)
[2021-11-30] MEDS: MULTIVITAMIN TAB PO SCH (08:27)
[2021-11-30] MEDS: METOPROLOL SUCC 50MG EXT REL TAB PO SCH (08:27)
[2021-11-30] MEDS: INSULIN ASPART PER UNIT SC SCH ×4 (09:02→20:47)
[2021-11-30] MEDS: oxyCODONE/ACETAMINOPHEN 5mg/325mg TAB PO PRN ×3 (09:41→18:37)
[2021-11-30] MEDS ORDERED: metroNIDAZOLE 500 MG TAB PO SCH (11:00)
--- NOTE | 2021-11-30 14:59 | Orthopedic Progress Note ---
Date of Service November 30, 2021 Assessment & Plan (1) Ankle ulcer due to DM: Plan: POD #4 s/p 1. Right foot incision and drainage deep medial abscess. 2. Irrigation and debridement, posterior tibial tendon tear with resection of the posterior tibial tendon. 3. Tenosynovectomy of the posterior tibial tendon and flexor digitorum longus tendons. 4. Irrigation and debridement, medial ankle diabetic neuropathic ulcer measuring 2.5 x 1.75 x 1.0 cm including skin, subcutaneous tissue, fascia and tendon sheath. Continue daily dressing changes. Cultures growing MRSA and Prevotella. Patient seen by infectious disease today. Cefepime discontinued, daptomycin increased to 500 mg daily. Augmentin p.o. twice daily added. Planning for PICC line today. Nonweightbearing on the right lower extremity. Pain control -continue as written for now. Discharge planningpatient planning for DC home tonight or tomorrow. Okay per orthopedics for patient's discharge. Plan for follow-up with Dr. Montaño in 7 to 10 days. We discussed daily dressing changes and that she needed to continue with her wound care appointments. Patient agreeable. (2) Surgical wound, non healing: (3) Tenosynovitis of ankle: Admission and Anticipated Discharge Date Admission Date: November 26, 2021 Subjective Postop day 4 Patient lying in bed awake and alert. No new complaints today. States that she spoke to [facility] infectious disease team. States that she is planning to get a PICC line and that he is changing her antibiotics to a certain extent. No other complaints or concerns at this time. Physical Exam Physical Exam: Dressings are clean, dry, and intact. Dressings removed. Her wound continues to improve. She has less maceration around the larger wound. There is also less erythema noted today. Swelling is slightly down. Minimal drainage on the dressing. Any drainage she has is a bloody serous type. No foul odor. Wounds redressed with Adaptic, 4 x 4's, ABD, Kerlix, Mikey wrap. Results & Data ([facility]) Vital Signs (Past 12 Hours) Vital Signs Temp Pulse Resp BP Pulse Ox 11/30/21 07:20 36.7 C 84 16 143/73 H 94
[2021-11-30] MEDS: DAPTOmycin 500 MG in SYRINGE 0 ML IV SCH (16:48)
[2021-11-30] MEDS ORDERED: AMOXICILLIN/CLAVULANATE 875 MG TAB PO SCH (17:00)
--- NOTE | 2021-11-30 18:09 | Hospitalist Progress Note ---
Date of Service November 30, 2021 Assessment & Plan (1) Ankle ulcer due to DM: Plan: Worsening discharge and pain since stopping antibiotics just 4 days prior to admission. WBC elevated 12.67, ESR 48 (previously 21), CRP 1.4 (previously 0.81) on admission. MRI ankle w/wo IV contrast - tenosynovitis, increasing subcutaneous edema along medial aspect of ankle concerning for worsening cellulitis, fluid collection seen deep to medial soft tissue ulceration. Orthopedics - s/p I&D performed by Dr Montaño 11/26. Blood cultures negative at 48 hours. Recent US arterial Doppler performed in August - no need to repeat this. Consult ID - planning on 6 weeks daptomycin and Augmentin, will switch today PICC line placement today (2) Cellulitis of foot, right: Plan: Mild surrounding right medial ankle ulcer. Surgical dressing not removed to inspect today. Patient is non-septic. (3) Osteomyelitis of great toe of right foot: Plan: Chronic but possibly where recurrent infection is coming from. stable per MRI findings. suspect acute worsening due to fluid collection and cellulitis as above. (4) HTN (hypertension): Plan: Continue metoprolol succinate 50mg PO QAM, lisinopril 10mg PO QAM (5) Diabetic peripheral neuropathy: Plan: Continue nortriptyline 100mg PO HS (6) Tenosynovitis of ankle: Plan: Infected tenosynovitis. Treatment as above. (7) PAD (peripheral artery disease): Plan: US arterial doppler in August without hemodynamically significant stenosis Continue ASA 81mg PO daily (8) Diabetes mellitus type 2, uncontrolled: Plan: HbA1C 10.5 in October, no need to repeat this Hold metformin. Continue Lantus 15 units SQ HS Novolog sliding scale: Goal BSG Range: Low 110 mg/dL, High 140 mg/dL Correction Factor: 45 mg/dL/unit Carbohydrate ratio = 15 g/unit BSGs ACHS if eating, q6h if npo Appears well controlled on this regimen Plan: VTE Prophylaxis - Lovenox 40mg SQ daily Diet - T2DM, heart healthy Disposition - continued admission on med/surg Admission and Anticipated Discharge Date Admission Date: November 26, 2021 Subjective Spoke to infectious disease today and recommending daptomycin and Augmentin for 6 weeks. Patient agreeable to PICC line. Initially very upset this morning and panicking which helped with Ativan but she appears to be much calmer after talking to infectious disease. Review of Systems Review of Systems: All systems reviewed & are unremarkable except as noted in Subjective Physical Exam Constitutional: WD/WN, vitals as above Respiratory: normal respiratory effort Gastrointestinal (Abdomen): Percussion/Palpation: abdomen soft; abdomen nontender Skin: no rashes, warm and dry (surgical dressing not removed, no cellulitis above this) Neurologic: moves all extremities and awake; not confused Psychiatric: A+Ox3, euthymic affect Results & Data Results & Data ([facility]) Vital Signs (Past 12 Hours) Vital Signs Temp Pulse Resp BP BP Pulse Ox 11/30/21 16:16 36.4 C L 76 18 138/73 97 11/30/21 07:20 36.7 C 84 16 143/73 H 94 PG Care Time/CCT Total # of Minutes Spent Total Time Spent with Patient: Total time spent is greater than 50% in coordination of care (as documented) at patient's floor/unit and/or counseling patient: Coding Level of Care Code 92304 Subseq Hosp Care Lvl 2 Diagnoses Ankle ulcer due to DM E11.622; L97.309 Cellulitis of foot, right L03.115 Osteomyelitis of great toe of right foot M86.9 HTN (hypertension) I10 Diabetic peripheral neuropathy E11.42 Tenosynovitis of ankle M65.9 PAD (peripheral artery disease) I73.9 Diabetes mellitus type 2, uncontrolled E11.65
[2021-11-30] MEDS ORDERED: diphenhydrAMINE 50 MG/ML VIAL IV STA (19:54)
--- NOTE | 2021-11-30 20:11 | Communication Note ---
Date of Service: November 30, 2021 ~745pm Notified by nurse of patient complaining of right face itching and feeling swollen. Per nurse her face does appear a little red and edematous. She had received her first dose of PO augmentin an hour ago. On my exam, there is not noticeable erythema or swelling. Patient states she has itching at her right face, head, and arm and that it feels like her previous drug allergies. No throat involvement or difficulty breathing. Ordered 25mg IV benadryl. D/c augmentin. Checking vitals q30 min for next several hours. Restarting the previous IV cefepime that she was on, dose to start at 630AM on 12/01/21. She has redness and itching again at 5AM upon waking up per nursing. Augmentin dosing is q12h, so likely is still in her system. Ordering another dose of IV benadryl.
[2021-11-30] MEDS: NORTRIPTYLINE HCL 25 MG CAP PO SCH (20:24)
[2021-11-30] MEDS: rOPINIRole HCL 2 MG TABLET PO SCH (20:25)
[2021-11-30] MEDS: SENNA 8.6 MG TAB PO SCH (20:25)
[2021-11-30] MEDS: ENOXAPARIN INJ 40 MG/0.4 ML SYR SQ SCH (20:26)
[2021-11-30] MEDS: ZOLPIDEM TARTRATE 10 MG TAB PO SCH (20:38)
[2021-11-30] MEDS: INSULIN GLARGINE SOLOSTAR 100 UNITS/ML 3 ML PEN SC SCH (20:39)
[2021-12-01] MEDS: HYDROmorphone INJ 0.5 MG/0.5 ML SYR IV PRN ×5 (00:15→14:03)
[2021-12-01] MEDS: oxyCODONE/ACETAMINOPHEN 5mg/325mg TAB PO PRN ×2 (02:42→12:18)
[2021-12-01] MEDS: LORazepam 1 MG TAB PO PRN ×2 (03:29→12:19)
[2021-12-01] MEDS: diphenhydrAMINE Capsule 25 MG CAP PO PRN ×2 (04:48→09:49)
[2021-12-01] MEDS ORDERED: diphenhydrAMINE 50 MG/ML VIAL IV STA (05:02)
[2021-12-01 06:21] LABS: Est GFR (Non-African American) 110.4 ml/min
[2021-12-01] MEDS ORDERED: CEFEPIME 2,000 MG in SYRINGE 0 ML IV SCH (06:30)
[2021-12-01] MEDS: DOCUSATE SODIUM 100 MG CAP PO SCH (08:29)
[2021-12-01] MEDS: ASPIRIN 81 MG ECTAB PO SCH (08:29)
[2021-12-01] MEDS: MULTIVITAMIN TAB PO SCH (08:29)
[2021-12-01] MEDS: METOPROLOL SUCC 50MG EXT REL TAB PO SCH (08:30)
[2021-12-01] MEDS: lisinopril 10 MG TAB PO SCH (08:30)
[2021-12-01] MEDS: INSULIN ASPART PER UNIT SC SCH ×2 (09:18→13:06)
[2021-12-01] MEDS: metroNIDAZOLE 500 MG TAB PO SCH ×2 (10:12→14:03)
[2021-12-01 10:35] VITALS: BP 169/88; TEMP 97.9; O2SAT 98
[2021-12-01] MEDS: DAPTOmycin 500 MG in SYRINGE 0 ML IV SCH (14:03)
--- NOTE | 2021-12-01 14:10 | Discharge Summary ---
Date of Service December 01, 2021 Admission HPI Per Admitting Provider Mariana Witt is a 56 year old female who presents to the ER as a direct admission from wound care clinic due to diabetic foot ulcer and cellulitis of her right foot. After finishing her recent course of vancomycin and cefepime she reports slowly progressively worsening ankle pain and discharge since that time. No fever or chills. She was most recently admitted to [facility] from November 04 to November 11 due to osteomyelitis however per infectious disease note at the time due to MRI findings showing stable chronic osteomyelitis and presentation was suspected to be more consistent with a soft tissue infection. No surgery was performed on that admission and she was discharged on vancomycin and cefepime with end date November 19 and wound vac. She reports the wound vac has been falling off. She has since finished the antibiotics and followed up at wound care clinic today and recommended direct admission due to her worsening signs and symptoms of infection. Principal Diagnosis ankle ulcer due to DM Discharge Exam Constitutional WD/WN, vitals as above Eyes + anicteric sclerae; normal pupil size ENMT external ear and nose normal, oropharynx normal Neck trachea midline, no thyromegaly Respiratory normal respiratory effort, lungs clear to auscultation normal respiratory effort Cardiovascular RRR, no murmur, no edema Vessels: dorsalis pedis pulses present Gastrointestinal (Abdomen) normal bowel sounds, soft, nontender, no hepatosplenomegaly Percussion/Palpation: abdomen soft; abdomen nontender Skin no rashes, warm and dry (surgical dressing not removed, no cellulitis above this) + ulcer (dressing ) Neurologic moves all extremities and awake; not confused Psychiatric A+Ox3, euthymic affect Orientation: alert and oriented x 3 Affect: + depressed affect and + tearful affect Discharge Data Allergies Allergy/AdvReac Type Severity Reaction Status Date / Time morphine Allergy Severe blisters Verified 11/24/21 10:12 in mouth Sulfa (Sulfonamide Allergy Severe rash/swelli Verified 11/24/21 10:12 Antibiotics) ng iron [From Venofer] Allergy Intermediate Hypertensio Verified 11/24/21 10:12 n vancomycin Allergy Intermediate YULIYA Verified 11/24/21 10:12 SYNDROME---CAN TAKE IF VERY SLOW DRIP. amoxicillin [From Augmentin] Allergy Mild itching/power Verified 11/30/21 20:40 h clavulanic acid Allergy Mild itching/power Verified 11/30/21 20:40 [From Augmentin] h Consultations 11/24/21 20:46 Consult Orthopedic Surgery Routine 11/26/21 14:59 Consult Infectious Diseases Routine Procedures Performed Operation Date: 11/26/21 08:00 Actual Procedures p Incision and Drainage Right Medial Ankle Ulceration, Irrigation and Dedridement posterior tendon, Tenosynovectomy flexor digitorum longus tendon(Right) - Akhil Montaño, Ordered Studies 11/24/21 13:42 MR ankle RT wo/w con Urgent MR foot RT wo/w con Urgent Hospital Course (1) Ankle ulcer due to DM: Worsening discharge and pain since stopping antibiotics just 4 days prior to admission. WBC elevated 12.67, ESR 48 (previously 21), CRP 1.4 (previously 0.81) on admission. MRI ankle w/wo IV contrast - tenosynovitis, increasing subcutaneous edema along medial aspect of ankle concerning for worsening cellulitis, fluid collection seen deep to medial soft tissue ulceration. Orthopedics - s/p I&D performed by Dr Montaño 11/26. Blood cultures negative at 48 hours. Recent US arterial Doppler performed in August - no need to repeat this. Consult ID - initial plan was to discharge on 6 weeks daptomycin and augmentin Patient however developed a rash to augmentin. will discharge on 6 weeks of daptomycin and 4 weeks of flagyl PICC line placement (2) Cellulitis of foot, right: Mild surrounding right medial ankle ulcer. Surgical dressing not removed to inspect today. Patient is non-septic. (3) Osteomyelitis of great toe of right foot: Chronic but possibly where recurrent infection is coming from. stable per MRI findings. suspect acute worsening due to fluid collection and cellulitis as above. (4) HTN (hypertension): Continue metoprolol succinate 50mg PO QAM, lisinopril 10mg PO QAM (5) Diabetic peripheral neuropathy: Continue nortriptyline 100mg PO HS (6) Tenosynovitis of ankle: Infected tenosynovitis. Treatment as above. (7) PAD (peripheral artery disease): US arterial doppler in August without hemodynamically significant stenosis Continue ASA 81mg PO daily (8) Diabetes mellitus type 2, uncontrolled: HbA1C 10.5 in October, no need to repeat this Hold metformin. Continue Lantus 15 units SQ HS Novolog sliding scale: Goal BSG Range: Low 110 mg/dL, High 140 mg/dL Correction Factor: 45 mg/dL/unit Carbohydrate ratio = 15 g/unit BSGs ACHS if eating, q6h if npo Appears well controlled on this regimen VTE Prophylaxis - Lovenox 40mg SQ daily Diet - T2DM, heart healthy Total Time Total Time Spent Total Time Spent (In Minutes): 55 Discharge Plan Discharge Items Patient Disposition: Home - Home Health Services Reason For Visit: DIABETIC FOOT ULCER Discharge Diagnosis: Diabetic Foot ulcer Activity: Resume your previous activity Weightbearing: Right non-weightbearing Non-emergency contact: Primary Care Provider Call non-emergency contact if: you have any medication questions Follow-up/Referrals: Akhil Montaño DO [Surgeon] - 12/06/21 12:00 pm (Follow up with Dr. Montaño in 7-10 days for wound check. ) Vince Vernon DO [Primary Care Provider] - Diet: Carb Consistent or DM2 and Heart Healthy Brynn Attending Provider Instructions: You have been hospitalized for an acute medical problem. During your stay at [facility], we have made an effort to correct the problem that brought you to the hospital while keeping you as comfortable as possible. Medications were used to bring your condition under control and your discharge instructions will include directions for any medications you should take after leaving the hospital. Please make sure you see your Primary Care Provider as part of your follow up plan. Brynn It Support Engineer Provider Instructions: ACTIVITY RECOMMENDATIONS: Limitations: No weight bearing to affected limb at all times. SPECIAL CARE INSTRUCTIONS: * Some drainage onto the dressing is normal and is no cause for alarm. * Some swelling is natural especially after walking. * When resting, keep your foot elevated above the level of your heart. * Call [facility] if you notice: -Increased drainage -Fever over 101 degrees F -Severe constant pain BANDAGE: * DAILY DRESSING CHANGES. * Keep bandage/cast dry at all times. FOLLOW UP VISIT WITH DR. MONTAÑO If appointment is not already scheduled: Please call [facility] after you get home today to schedule a follow-up appointment for 7-[address] Montaño at . Pending Studies at Discharge: No Stand-Alone Forms: My [facility], Opioid Pain Management, Smoking Cessation Medications and DC Order Prescriptions: New metronidazole 500 mg Tablet 500 mg PO TID 28 Days Qty: 84 RF: 0 daptomycin [Cubicin] 500 mg Recon Soln 1 dose Not Applicable UD Qty: 1 RF: 0 Continued (DME) lancets [OneTouch UltraSoft Lancets] Misc See Rx Instructions .ROUTE .MEDSUPPLY Qty: 100 RF: 0 albuterol sulfate [Proventil HFA] 90 mcg/actuation HFA aerosol inhaler 1 puff inhalation QID PRN (Reason: Shortness Of Breath) RF: 0 metoprolol succinate [Toprol XL] 50 mg tablet extended release 24 hr 50 mg PO QAM RF: 0 metformin 500 mg tablet 500 mg PO BID Qty: 60 RF: 0 Basaglar KwikPen U-100 Insulin 100 unit/mL (3 mL) insulin pen 15 unit SUBCUT HS Qty: 1 RF: 0 insulin lispro [Humalog KwikPen Insulin] 100 unit/mL insulin pen 3 unit SUBCUT TIDM Qty: 1 RF: 0 ropinirole 2 mg Tablet 4 mg PO HS RF: 0 nortriptyline [Pamelor] 50 mg Capsule 100 mg PO HS RF: 0 cyclobenzaprine 10 mg tablet 10 mg PO BID RF: 0 lisinopril 10 mg Tablet 10 mg PO QAM Qty: 30 RF: 0 aspirin [Aspirin Low Dose] 81 mg Tablet,Delayed Release (Dr/Ec) 81 mg PO BID Qty: 60 RF: 0 lorazepam [Ativan] 1 mg tablet 1 mg PO TID PRN (Reason: Anxiety) RF: 0 oxycodone-acetaminophen [Percocet] 5-325 mg Tablet 1 - 2 tab PO Q4H PRN (Reason: breakthrough pain) Qty: 20 RF: 0 zolpidem 12.5 mg tablet,ext release multiphase 12.5 mg PO RF: 0 Discontinued doxycycline hyclate 100 mg tablet 100 mg PO bid 14 Days Qty: 28 RF: 0 Discharge Orders: Discharge Order (Routine); Ordered 12/01/21 Ordered By: Ricardo Nava/Other Patient Handouts: Nutrition for Wound Healing, Long-Term Complications of Diabetes, Resources for People with Diabetes, Managing Type 2 Diabetes, Diabetes Foot Infections Tx, Healthy Meals for Diabetes, Understanding Carbohydrates, Eating Out When You Have Diabetes, Diabetes: Keeping Feet Healthy, Diabetes: Inspecting Your Feet, Caring for Your PICC Dc, PICC Line Flushing Home Ch, Flushing Your PICC Line at Home, ED PICC Line Care Admission Data Admit Date/Time: 11/26/21 14:55 Attending Provider: Ricardo Hernadez Admit Provider: Silvestre Best Primary Care Provider: Vince Vernon Other Providers: Akhil Montaño ; Sylvain Melendrez ; Esthela Curtis ; Harish Arciniega I. ; Cristhian Oconnor II ; Minda Vargas ; Dami Willard ; David Banerjee ; [facility] Other Interventions: Discharge Summary Assessment (RN) Last Done: 12/01/21 14:23 Coding Level of Care Code D/C DAY MANAGEMENT >30 MINS Diagnoses Ankle ulcer due to DM E11.622; L97.309 Cellulitis of foot, right L03.115 Osteomyelitis of great toe of right foot M86.9 HTN (hypertension) I10 Diabetic peripheral neuropathy E11.42 Tenosynovitis of ankle M65.9 PAD (peripheral artery disease) I73.9 Diabetes mellitus type 2, uncontrolled E11.65
[2021-12-01 14:27] VITALS: PULSE 82
== END 2021-12-01 15:00 | disposition home health service (06) | DRG 623 ==
LOC: 3W → SUATTDRO 11-26 14:55

== ENCOUNTER 2021-12-06 11:43 | Inpatient (IN) ==
[2021-12-06] MEDS ORDERED: HYDROmorphone INJ 1 MG/ML SYRINGE IV STA ×3 (13:18→19:30)
[2021-12-06] MEDS ORDERED: SODIUM CHLORIDE 0.9% 1000ML 500 ML IV ONE (13:24)
[2021-12-06] MEDS ORDERED: DAPTOmycin 500 MG in SYRINGE 0 ML IV ONE (13:45)
--- NOTE | 2021-12-06 14:07 | XRay Report ---
XR foot RT min 3V routine CLINICAL HISTORY: pain, hx osteo COMPARISON: Right foot radiographs December 03, 2021. MRI of the right foot November 24, 2021. FINDINGS: Note is again made of soft tissue swelling surrounding the amputated right first and secon d toes. No progressive bony destruction is present. Sclerosis and periosteal reaction are similar to prior exam. No acute fracture is identified. There are no radiopaque foreign bodies. Tarsometatarsal joints are intact. IMPRESSION: 1. Soft tissue swelling of the right forefoot, adjacent to the first and second digit amputations whi ch favors cellulitis. 2. No change in appearance of the right first and second metatarsals status post amputation. No evide nce for progressive bony destruction. ACT 112: Negative or not required by law. Electronically signed by: Wilver Powell M.D. 12/06/2021 2:06 PM
[2021-12-06 14:08] LABS: Basophils # (auto) 0.07 K/uL (0-0.2); Basophils % (auto) 0.5 %; Eosinophils % (auto) 3.3 %; Hemoglobin 13.6 g/dL (12.0-16.0); Immature Granulocytes # (auto) 0.05 K/uL (0.00-0.02); Immature Granulocytes % (auto) 0.3 %; Lymphocytes # (auto) 3.27 K/uL (1.2-3.4); Lymphocytes % (auto) 21.7 %; Mean Corpuscular Hemoglobin 24.9 pg (25-34); Mean Corpuscular Hgb Conc 32.4 g/dL (32-36); Mean Corpuscular Volume 76.8 fL (80-100); Mean Platelet Volume 9.6 fL (7.4-10.4); Monocytes # (auto) 1.06 K/uL (0.11-0.59); Neutrophils # (auto) 10.13 K/uL (1.4-6.5); Neutrophils % (auto) 67.2 %; Platelet Count 405 K/uL (130-400); RDW Coefficient of Variation 14.4 % (11.5-14.5); RDW Standard Deviation 40.4 fL (36.4-46.3); Red Blood Count 5.47 M/uL (4.2-5.4); White Blood Count 15.08 K/uL (4.8-10.8)
[2021-12-06] MEDS ORDERED: ONDANSETRON INJ 2 MG/ML 2 ML VIAL IV STA ×2 (14:08→15:07)
--- NOTE | 2021-12-06 14:09 | XRay Report ---
XR chest 1V portable CLINICAL HISTORY: weakness TECHNIQUE: Single frontal radiograph of the chest was obtained. Comparison: Comparison is made to chest one view 11/09/2021 FINDINGS: No lines and tubes are seen. The cardiomediastinal silhouette is normal. The lungs are clear. No evid ence of pleural effusion or pneumothorax. IMPRESSION: No acute chest disease. ACT 112: Negative or not required by law. Electronically signed by: Neil Mendieta M.D. 12/06/2021 2:08 PM
--- NOTE | 2021-12-06 14:13 | Emergency Department Note ---
Impression & Plan Diabetic foot infection, Foot pain, right, Cellulitis of right foot, Hyperglycemia due to type 2 diabetes mellitus, Nausea & vomiting ED Provider Note Provider: John Saez MD DATE OF SERVICE: 12/06/2021 CHIEF COMPLAINT: Worsening right foot pain and infection, vomiting HISTORY OF PRESENT ILLNESS: Patient is a 56-year-old female history of diabetes and right foot infection status postsurgical management by Dr. Montaño, hypertension, MRSA, PAD, gastroparesis presenting here today via ambulance from her home related to worsening pain and nausea and vomiting. Reports she was here on Sunday. Since then has not had anything to eat or drink of significance and did not take her antibiotic orally this morning. Did not have her infusion of daptomycin this morning through her PICC line. She states she is having significant pain in her right foot into her right barbosa leg "bone pain". She reports that she thinks the wound opened up a little bit more than before. Denies any trauma. Reports some fevers and chills. Reports she has been vomiting quite a bit and did notice a day or 2 ago small amount of blood in the vomit. Patient denies severe abdominal pain or chest pain. Patient states the Zofran she received in route helped some with her nausea but the fentanyl in route did not help with her pain otherwise. REVIEW OF SYSTEMS: A total of 10 review of systems was obtained and negative except as stated above in the HPI. PAST MEDICAL HISTORY: As noted above MEDICATIONS: No medications SOCIAL HISTORY: Lives at home with PHYSICAL EXAM: GENERAL: alert and oriented fatigued appearing laying on the stretcher Head: normocephalic and atraumatic EYES: No injection, discharge or icterus. NECK: Trachea midline. LUNGS: Airway patent. No retractions. Breath sounds clear HEART: Regular tachycardic rate and rhythm. No chest wall tenderness ABDOMEN: Soft and non-tender, without guarding or rebound. SKIN: Acyanotic, warm, dry, EXTREMITIES: Patient with wound on the medial right foot with some surrounding erythema to the ankle region with some tenderness of the distal tibia over the ankle but no crepitus. No significant purulence expressed with some trace discharge on bandaging here. No significant calf tenderness noted here. Amputation of the first and second toes on the right appear well-healed. NEUROLOGICAL: No focal deficits. No aphasia. No facial droop or slurred speech. EK bpm sinus tachycardia. No PVC or PAC. No acute ST segment elevation or depression with QTC of 425. CONTINUOUS CARDIAC MONITORING: was ordered and showed a heart rate of 90s-100s bpm in normal sinus rhythm to sinus tachycardia Patient's laboratory studies and imaging reviewed. Differential includes Cellulitis, abscess, MRSA infection, DVT, necrotizing fasciitis, dermatitis, drug eruption, gastroenteritis, GI maladies, GI bleed, as well as other pathologies. IMPRESSION/MEDICAL DECISION MAKING: Patient with increased right foot pain and swelling per her report. Some fevers reported at home. Some nausea earlier. Recent evaluation this weekend and b lood cultures in the time are noted to be no growth to date. Treated her symptomatically. Does have some redness and stitches and wound of the right foot. Currently on daptomycin for this. Has been unable to take her home Flagyl for a day or 2 and did not have her Daptomycin this morning. Given her IV Daptomycin today. Basic labs were obtained. Patient states limited oral intake. Cell count is elevated slightly more 15. Platelets also mildly elevated question some component of slight hemoconcentration. Renal function appears stable with slight hyponatremia. CRP minimally elevated. Troponin is not elevated and I doubt this is cardiac in nature. Benign abdomen otherwise. Denied significant blood in the vomit and doubt acute GI bleed. Poorly controlled pain and received additional Dilaudid here as well as some Zofran. Foot x-ray question was cellulitis but no findings concerning for worsened osteomyelitis on the x-ray at least. Given IV dose of Flagyl and still with nausea and vomiting. Review of cultures with pharmacy will cover with cefepime for some gram-negative coverage given the reported worsening of her foot. Question some worsening cellulitis and she is not tolerating oral intake including her antibiotics. Given this discussed further observation with her and the hospitalist. DIAGNOSIS: Diabetic foot infection, nausea and vomiting, foot pain DISPOSITION: Hospitalist will evaluate Patient was agreeable with this plan. Past Med/Surg History Medical History 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 No issues per anesthesia postop progress note. Anemia Cellulitis Chronic back pain Depression Diabetic peripheral neuropathy DM2 (diabetes mellitus, type 2) IDDM, A1c 07/2021-11% Gastritis GIB (gastrointestinal bleeding) History of amputation of great toe Hyperlipidemia Insulin dependent diabetes mellitus Iron deficiency anemia Nonobstructive atherosclerosis of coronary artery Numbness of lower extremity Peripheral neuropathy Right second toe ulcer Seizures Surgical History History of cardiac cath done at [facility]; 09/22/19; LM - mild luminal irregularities. LAD - mid 20-30%, distal with myocardial bridge & 30% stenosis. L Cx - mild luminal irregularities. RCA - proximal <30% stenosis; mid/distal vessel mild plaques. PDA - mild luminal irregularities. History of esophagogastroduodenoscopy (EGD) Family History Mother , age 63 Myocardial infarction Father , age 68 or 69 Myocardial infarction Brother S/P CABG (coronary artery bypass graft) Sister Myocardial infarction x 3; she is 57yo Social History Smoking Status: Former smoker Tobacco Type: Cigarettes packs per day: 0.5; Years Smoked: 20; Cigarettes Per Day: 20; Second Hand Exposure: No; Hx Alcohol Use: No Hx Substance Use: Yes Prescribed Medications: Marijuana Last Used Substance: Days (ago) Last Used Substance Other:: 2 days ago Substance Use Type Other:: medical marijuana Preferred Language: Dutch Communication Ability: Effective Visual Impairment: No Limitations Hearing Ability: Normal Watch And Clock Repairer Required: No Beliefs That Will Affect Care: None marital status: Current Living Situation: Spouse and Family current occupational status: unemployed 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 other: raising a grandchild as well; lives in [place] Feels Safe at Home: Yes during the past year weight has: remained stable Assistive Devices: Cane and Walker Allergies Allergies Allergy/AdvReac Type Severity Reaction Status Date / Time morphine Allergy Severe blisters Verified 12/03/21 20:36 in mouth Sulfa (Sulfonamide Allergy Severe rash/swelli Verified 12/03/21 20:36 Antibiotics) ng iron [From Venofer] Allergy Intermediate Hypertensio Verified 12/03/21 20:36 n vancomycin Allergy Intermediate YULIYA Verified 12/03/21 20:36 SYNDROME---CAN TAKE IF VERY SLOW DRIP. amoxicillin [From Augmentin] Allergy Mild itching/power Verified 12/03/21 20:36 h clavulanic acid Allergy Mild itching/power Verified 12/03/21 20:36 [From Augmentin] h Home Meds Home Medications Medication Instructions Recorded Confirmed nortriptyline 50 mg capsule 100 mg PO HS 10/19/20 12/06/21 (Pamelor) ropinirole 2 mg tablet 4 mg PO HS 10/19/20 12/06/21 lancets (OneTouch UltraSoft #100 ea 11/12/20 11/24/21 Lancets) albuterol sulfate 90 mcg/actuation 1 puff INHALATION QID PRN 03/05/21 12/06/21 aerosol inhaler (Proventil HFA) metoprolol succinate 50 mg 50 mg PO QAM 03/05/21 12/06/21 tablet,extended release 24 hr (Toprol XL) lorazepam 1 mg tablet (Ativan) 1 mg PO TID PRN 11/04/21 12/06/21 cyclobenzaprine 10 mg tablet 10 mg PO BID tab 11/24/21 12/06/21 zolpidem 12.5 mg tablet,extended 12.5 mg PO DAILY 11/29/21 12/06/21 release,multiphase metformin 500 mg tablet,extended 1,000 mg PO DAILY 12/06/21 12/06/21 release 24 hr oxycodone-acetaminophen 5 mg-325 1 tab PO Q8 PRN 12/06/21 12/06/21 mg tablet (Percocet) Previous Rx's Medication Instructions Recorded insulin glargine 100 unit/mL (3 15 unit SUBCUT HS #1 ml 08/18/21 mL) subcutaneous pen (Basaglar KwikPen U-100 Insulin) insulin lispro 100 unit/mL 3 unit SUBCUT TIDM #1 ml 08/18/21 subcutaneous pen (Humalog KwikPen (U-100) Insulin) aspirin 81 mg tablet,delayed 81 mg PO BID #60 tab 10/04/21 release (Aspirin Low Dose) lisinopril 10 mg tablet 10 mg PO QAM #30 tab 10/04/21 daptomycin 500 mg intravenous 1 dose NOT APPLICABLE UD #1 ea 12/01/21 solution (Cubicin) metronidazole 500 mg tablet 500 mg PO TID 28 Days #84 tab 12/01/21 Results & Data (ED) Vital Signs Vital Signs - 24 hr 12/06/21 11:48 12/06/21 13:00 12/06/21 13:18 Temperature 36.7 C Temperature Source Oral Pulse Rate 115 H Pulse Rate [Apical] 106 H Respiratory Rate 14 21 Respiratory Effort / Characteristics Non-Labored Spontaneous Non-Labored Spontaneous Respiratory Depth Normal Normal Blood Pressure 174/97 H Blood Pressure [Right Arm] 181/115 H Blood Pressure Mean 122 Blood Pressure Mean [Right Arm] 137 Blood Pressure Position Lying Pulse Oximetry 97 97 98 Oxygen Delivery Method Room Air Room Air Room Air Sepsis Recent Fever Within 48 Hours Yes Sepsis New/Unexplained Change in Mental Status No Sepsis Action Taken by Nursing No Action Required 12/06/21 15:00 Temperature Temperature Source Pulse Rate Pulse Rate [Apical] 105 H Respiratory Rate 18 Respiratory Effort / Characteristics Non-Labored Spontaneous Respiratory Depth Normal Blood Pressure Blood Pressure [Right Arm] 207/101 H Blood Pressure Mean Blood Pressure Mean [Right Arm] 136 Blood Pressure Position Pulse Oximetry 97 Oxygen Delivery Method Room Air Sepsis Recent Fever Within 48 Hours Sepsis New/Unexplained Change in Mental Status Sepsis Action Taken by Nursing Laboratory Data Result diagrams: 12/06/21 13:45 12/06/21 13:45 Lab Results 12/06/21 12/06/21 12/06/21 Range/Units 13:45 13:45 13:45 WBC 15.08 H (4.8-10.8) K/uL RBC 5.47 H (4.2-5.4) M/uL Hgb 13.6 (12.0-16.0) g/dL Hct 42.0 (37-47) % MCV 76.8 L (80-100) fL MCH 24.9 L (25-34) pg MCHC 32.4 (32-36) g/dL RDW Std Deviation 40.4 (36.4-46.3) fL RDW Coeff of [place] 14.4 (11.5-14.5) % Plt Count 405 H (130-400) K/uL MPV 9.6 (7.4-10.4) fL Immature Gran % (Auto) 0.3 % Neut % (Auto) 67.2 % Lymph % (Auto) 21.7 % [place] % (Auto) 7.0 % Eos % (Auto) 3.3 % Baso % (Auto) 0.5 % Neut # (Auto) 10.13 H (1.4-6.5) K/uL Lymph # (Auto) 3.27 (1.2-3.4) K/uL [place] # (Auto) 1.06 H (0.11-0.59) K/uL Eos # (Auto) 0.50 (0-0.5) K/uL Baso # (Auto) 0.07 (0-0.2) K/uL Immature Gran # (Auto) 0.05 H (0.00-0.02) K/uL PT 10.5 (9.0-12.0) Seconds INR 1.0 (0.9-1.1) Sodium (136-145) mmol/L Potassium (3.5-5.1) mmol/L Chloride (98-107) mmol/L Carbon Dioxide (21-32) mmol/L Anion Gap (3-11) BUN (6-23) mg/dl Creatinine (0.6-1.2) mg/dl Est Cr Clr Drug Dosing ml/min Est GFR ( Amer) ml/min Est GFR (Non-Af Amer) ml/min BUN/Creatinine Ratio (10-20) Glucose (70-99(Fasting)) mg/dl Lactate (0.4-2.0) mmol/L Calcium (8.5-10.1) mg/dl Magnesium (1.7-2.4) mg/dl Total Bilirubin (0.2-1.0) mg/dl AST (13-39) U/L ALT (7-52) U/L Alkaline Phosphatase (34-104) U/L Total Creatine Kinase (26-192) U/L Troponin I High Sens 6.3 (0-14) pg/ml C-Reactive Protein (0-0.5) mg/dl Total Protein (6.0-8.3) gm/dl Albumin (3.4-5.0) gm/dl Globulin (2.5-4.0) gm/dl Albumin/Globulin Ratio (0.9-2) Procalcitonin (0-0.5) ng/ml TSH (0.300-4.500) uIu/ml Urine Color Urine Appearance (Clear) Urine pH (4.5-7.5) Ur Specific [place] (1.000-1.030) Urine Protein (Negative) Urine Glucose (UA) (Negative) Urine Ketones (Negative) Urine Blood (Negative) Urine Nitrite (Negative) Urine Bilirubin (Negative) Urine Urobilinogen (Negative) Ur Leukocyte Esterase (Negative) Urine WBC (Auto) (0-5) /hpf Urine RBC (Auto) (0-4) /hpf U Hyaline Cast (Auto) (0-5) /lpf U Epithel Cells (Auto) (0-5) /lpf Urine Bacteria (Auto) (Negative) SARS-CoV-2, RNA, NAAT (NEGATIVE) 12/06/21 12/06/21 12/06/21 Range/Units 13:45 13:45 14:44 WBC (4.8-10.8) K/uL RBC (4.2-5.4) M/uL Hgb (12.0-16.0) g/dL Hct (37-47) % MCV (80-100) fL MCH (25-34) pg MCHC (32-36) g/dL RDW Std Deviation (36.4-46.3) fL RDW Coeff of [place] (11.5-14.5) % Plt Count (130-400) K/uL MPV (7.4-10.4) fL Immature Gran % (Auto) % Neut % (Auto) % Lymph % (Auto) % [place] % (Auto) % Eos % (Auto) % Baso % (Auto) % Neut # (Auto) (1.4-6.5) K/uL Lymph # (Auto) (1.2-3.4) K/uL [place] # (Auto) (0.11-0.59) K/uL Eos # (Auto) (0-0.5) K/uL Baso # (Auto) (0-0.2) K/uL Immature Gran # (Auto) (0.00-0.02) K/uL PT (9.0-12.0) Seconds INR (0.9-1.1) Sodium 133 L (136-145) mmol/L Potassium 4.5 (3.5-5.1) mmol/L Chloride 95 L (98-107) mmol/L Carbon Dioxide 29 (21-32) mmol/L Anion Gap 9 (3-11) BUN 9 (6-23) mg/dl Creatinine 0.50 L (0.6-1.2) mg/dl Est Cr Clr Drug Dosing 113.9 ml/min Est GFR ( Amer) 124.5 ml/min Est GFR (Non-Af Amer) 107.4 ml/min BUN/Creatinine Ratio 18.0 (10-20) Glucose 234 H (70-99(Fasting)) mg/dl Lactate 1.4 (0.4-2.0) mmol/L Calcium 10.2 H (8.5-10.1) mg/dl Magnesium 1.8 (1.7-2.4) mg/dl Total Bilirubin 0.3 (0.2-1.0) mg/dl AST 16 (13-39) U/L ALT 25 (7-52) U/L Alkaline Phosphatase 125 H (34-104) U/L Total Creatine Kinase 20 L (26-192) U/L Troponin I High Sens (0-14) pg/ml C-Reactive Protein 0.75 H (0-0.5) mg/dl Total Protein 8.5 H (6.0-8.3) gm/dl Albumin 4.8 (3.4-5.0) gm/dl Globulin 3.7 (2.5-4.0) gm/dl Albumin/Globulin Ratio 1.3 (0.9-2) Procalcitonin (0-0.5) ng/ml TSH 2.523 (0.300-4.500) uIu/ml Urine Color Urine Appearance (Clear) Urine pH (4.5-7.5) Ur Specific [place] (1.000-1.030) Urine Protein (Negative) Urine Glucose (UA) (Negative) Urine Ketones (Negative) Urine Blood (Negative) Urine Nitrite (Negative) Urine Bilirubin (Negative) Urine Urobilinogen (Negative) Ur Leukocyte Esterase (Negative) Urine WBC (Auto) (0-5) /hpf Urine RBC (Auto) (0-4) /hpf U Hyaline Cast (Auto) (0-5) /lpf U Epithel Cells (Auto) (0-5) /lpf Urine Bacteria (Auto) (Negative) SARS-CoV-2, RNA, NAAT (NEGATIVE) 12/06/21 12/06/21 12/06/21 Range/Units 14:44 15:11 15:12 WBC (4.8-10.8) K/uL RBC (4.2-5.4) M/uL Hgb (12.0-16.0) g/dL Hct (37-47) % MCV (80-100) fL MCH (25-34) pg MCHC (32-36) g/dL RDW Std Deviation (36.4-46.3) fL RDW Coeff of Maria Del Carmen (11.5-14.5) % Plt Count (130-400) K/uL MPV (7.4-10.4) fL Immature Gran % (Auto) % Neut % (Auto) % Lymph % (Auto) % [place] % (Auto) % Eos % (Auto) % Baso % (Auto) % Neut # (Auto) (1.4-6.5) K/uL Lymph # (Auto) (1.2-3.4) K/uL [place] # (Auto) (0.11-0.59) K/uL Eos # (Auto) (0-0.5) K/uL Baso # (Auto) (0-0.2) K/uL Immature Gran # (Auto) (0.00-0.02) K/uL PT (9.0-12.0) Seconds INR (0.9-1.1) Sodium (136-145) mmol/L Potassium (3.5-5.1) mmol/L Chloride (98-107) mmol/L Carbon Dioxide (21-32) mmol/L Anion Gap (3-11) BUN (6-23) mg/dl Creatinine (0.6-1.2) mg/dl Est Cr Clr Drug Dosing ml/min Est GFR ( Amer) ml/min Est GFR (Non-Af Amer) ml/min BUN/Creatinine Ratio (10-20) Glucose (70-99(Fasting)) mg/dl Lactate (0.4-2.0) mmol/L Calcium (8.5-10.1) mg/dl Magnesium (1.7-2.4) mg/dl Total Bilirubin (0.2-1.0) mg/dl AST (13-39) U/L ALT (7-52) U/L Alkaline Phosphatase (34-104) U/L Total Creatine Kinase (26-192) U/L Troponin I High Sens (0-14) pg/ml C-Reactive Protein (0-0.5) mg/dl Total Protein (6.0-8.3) gm/dl Albumin (3.4-5.0) gm/dl Globulin (2.5-4.0) gm/dl Albumin/Globulin Ratio (0.9-2) Procalcitonin < 0.05 (0-0.5) ng/ml TSH (0.300-4.500) uIu/ml Urine Color Yellow Urine Appearance Clear (Clear) Urine pH 7.5 (4.5-7.5) Ur Specific [place] 1.015 (1.000-1.030) Urine Protein 1+ H (Negative) Urine Glucose (UA) 1+ H (Negative) Urine Ketones Negative (Negative) Urine Blood Negative (Negative) Urine Nitrite Negative (Negative) Urine Bilirubin Negative (Negative) Urine Urobilinogen Negative (Negative) Ur Leukocyte Esterase Negative (Negative) Urine WBC (Auto) 1-5 (0-5) /hpf Urine RBC (Auto) 0-4 (0-4) /hpf U Hyaline Cast (Auto) 1-5 (0-5) /lpf U Epithel Cells (Auto) 10-20 H (0-5) /lpf Urine Bacteria (Auto) Negative (Negative) SARS-CoV-2, RNA, NAAT NEGATIVE (NEGATIVE) Administered Medications Discontinued Medications Hydromorphone HCl (Hydromorphone Inj 1 Mg/Ml Syringe) 1 mg IV NOW STA Stop: 12/06/21 13:19 Last Admin: 12/06/21 13:45 Dose: 1 mg Documented by: [id number] Sodium Chloride (Nss 1000ml) 500 mls @ 999 mls/hr IV .Q31M ONE Stop: 12/06/21 13:54 Last Infusion: 12/06/21 14:58 Dose: 0 mls/hr Documented by: [id number] Admin: 12/06/21 13:47 Dose: 999 mls/hr Documented by: [id number] Daptomycin 500 mg/ Syringe 10 mls @ 5 mls/min IV NOW ONE; Protocol Stop: 12/06/21 13:46 Last Admin: 04/26/22 15:16 Dose: 5 mls/min Documented by: [id number] Ondansetron HCl (Ondansetron Inj 2 Mg/Ml 2 Ml Vial) 4 mg IV NOW STA Stop: 12/06/21 14:09 Last Admin: 12/06/21 14:15 Dose: 4 mg Documented by: [id number] Imaging Data Radiologist's Impression: Chest X-Ray 12/06/21 13:18 XR chest 1V portable CLINICAL HISTORY: weakness TECHNIQUE: Single frontal radiograph of the chest was obtained. Comparison: Comparison is made to chest one view 11/09/2021 FINDINGS: No lines and tubes are seen. The cardiomediastinal silhouette is normal. The lungs are clear. No evidence of pleural effusion or pneumothorax. IMPRESSION: No acute chest disease. ACT 112: Negative or not required by law. Electronically signed by: Neil Mendieta M.D. 12/06/2021 2:08 PM Foot X-Ray 12/06/21 13:19 XR foot RT min 3V routine CLINICAL HISTORY: pain, hx osteo COMPARISON: Right foot radiographs December 03, 2021. MRI of the right foot November 24, 2021. FINDINGS: Note is again made of soft tissue swelling surrounding the amputated right first and second toes. No progressive bony destruction is present. Sclerosis and periosteal reaction are similar to prior exam. No acute fracture is identified. There are no radiopaque foreign bodies. Tarsometatarsal joints are intact. IMPRESSION: 1. Soft tissue swelling of the right forefoot, adjacent to the first and second digit amputations which favors cellulitis. 2. No change in appearance of the right first and second metatarsals status post amputation. No evidence for progressive bony destruction. ACT 112: Negative or not required by law. Electronically signed by: Wilver Powell M.D. 12/06/2021 2:06 PM Discharge Plan Visit Data Chief Complaint: Foot Injury/Pain Stated Complaint: FOOT PAIN, HEMATEMESIS ED Provider: John Saez Discharge Problem: Diabetic foot infection, Foot pain, right, Cellulitis of right foot, Hyperglycemia due to type 2 diabetes mellitus, Nausea & vomiting Patient Disposition: Being Evaluated by Hospitalist Forms Stand Alone Forms: My [facility] [place] [employer] Prescriptions Prescriptions: No Action (DME) lancets [OneTouch UltraSoft Lancets] Misc See Rx Instructions .ROUTE .MEDSUPPLY Qty: 100 RF: 0 albuterol sulfate [Proventil HFA] 90 mcg/actuation HFA aerosol inhaler 1 puff inhalation QID PRN (Reason: Shortness Of Breath) RF: 0 metoprolol succinate [Toprol XL] 50 mg tablet extended release 24 hr 50 mg PO QAM RF: 0 Basaglar KwikPen U-100 Insulin 100 unit/mL (3 mL) insulin pen 15 unit SUBCUT HS Qty: 1 RF: 0 insulin lispro [Humalog KwikPen Insulin] 100 unit/mL insulin pen 3 unit SUBCUT TIDM Qty: 1 RF: 0 ropinirole 2 mg Tablet 4 mg PO HS RF: 0 nortriptyline [Pamelor] 50 mg Capsule 100 mg PO HS RF: 0 cyclobenzaprine 10 mg tablet 10 mg PO BID RF: 0 lisinopril 10 mg Tablet 10 mg PO QAM Qty: 30 RF: 0 aspirin [Aspirin Low Dose] 81 mg Tablet,Delayed Release (Dr/Ec) 81 mg PO BID Qty: 60 RF: 0 lorazepam [Ativan] 1 mg tablet 1 mg PO TID PRN (Reason: Anxiety) RF: 0 zolpidem 12.5 mg tablet,ext release multiphase 12.5 mg PO DAILY RF: 0 metronidazole 500 mg Tablet 500 mg PO TID 28 Days Qty: 84 RF: 0 daptomycin [Cubicin] 500 mg Recon Soln 1 dose Not Applicable UD Qty: 1 RF: 0 oxycodone-acetaminophen [Percocet] 5-325 mg tablet 1 tab PO Q8 PRN (Reason: Severe Pain (Scale Score 7-10)) RF: 0 metformin 500 mg tablet extended release 24 hr 1,000 mg PO DAILY RF: 0 Referrals Referrals: Vince Vernon DO [Primary Care Provider] - Discharge Problem: Hyperglycemia due to type 2 diabetes mellitus Qualifiers: Diabetes mellitus skilled nursing insulin use: with skilled nursing use Qualified Code(s): E11.65 - Type 2 diabetes mellitus with hyperglycemia Nausea & vomiting Qualifiers: Vomiting type: unspecified Qualified Code(s): R11.2 - Nausea with vomiting, unspecified
[2021-12-06 14:17] LABS: Prothrombin Time 10.5 Seconds (9.0-12.0)
[2021-12-06 14:30] LABS: Albumin Globulin Ratio 1.3 (0.9-2); Albumin Level 4.8 gm/dl (3.4-5.0); Bilirubin,Total 0.3 mg/dl (0.2-1.0); C Reactive Protein 0.75 mg/dl (0-0.5); Calcium 10.2 mg/dl (8.5-10.1); Creatinine Clr Calc Pharmacy 113.9 ml/min; Est GFR (African American) 124.5 ml/min; Est GFR (Non-African American) 107.4 ml/min; Globulin 3.7 gm/dl (2.5-4.0); Magnesium 1.8 mg/dl (1.7-2.4); Potassium 4.5 mmol/L (3.5-5.1); Total Protein 8.5 gm/dl (6.0-8.3)
[2021-12-06] MEDS ORDERED: CEFEPIME 2,000 MG/20 ML VIAL IV STA (15:22)
--- NOTE | 2021-12-06 15:36 | Electrocardiogram Report ---
Test Reason : Blood Pressure : / mmHG Vent. Rate : 106 BPM Atrial Rate : 106 BPM P-R Int : 140 ms QRS Dur : 086 ms QT Int : 320 ms P-R-T Axes : 075 073 080 degrees QTc Int : [address] elevation, consider early repolarization, pericarditis, or injury Abnormal ECG When compared with ECG of 04-NOV-2021 11:11, No significant change was found Confirmed by Julito Colon ([id number]) on 12/06/2021 3:36:14 PM Referred By: REFERRED SELF Confirmed By:Julito Colon
[2021-12-06 15:41] LABS: Appearance Urine Clear (Clear); Bacteria Urine Automated Negative (Negative); Bilirubin Urine Negative (Negative); Blood Urine Negative (Negative); Color Urine Yellow; Glucose Urine UA 1+ (Negative); Ketones Urine Negative (Negative); Leukocyte Esterase Urine Negative (Negative); Nitrite Urine Negative (Negative); RBC Urine Automated 0-4 /hpf (0-4); Specific Gravity Urine 1.015 (1.000-1.030); Urobilinogen Urine Negative (Negative); pH Urine 7.5 (4.5-7.5)
[2021-12-06 15:48] LABS: Protein Urine 1+ (Negative)
--- NOTE | 2021-12-06 16:05 | History & Physical Report ---
Date of Service December 06, 2021 Assessment & Plan (1) Diabetic foot infection: Plan: Persistent osteomyelitis s/p multiple surgeries. Seen by ID in the hospital on 11/30 with recs of 6 weeks of daptomycin and Flagyl; however, is not tolerating oral Flagyl and stopped taking it 2 days ago. - Continue home daptomycin - Discussed with pharmacy -> switch metronidazole to clindamycin 600 mg PO Q8h (can confirm with ID tomorrow) - RLE u/s to r/o DVT - Orthopedics consulted - Wound consulted (2) Nausea & vomiting: Plan: Likely due to metronidazole. Patient already asking for more to drink. - Advance diet as able - Zofran PRN (3) HTN (hypertension): Plan: BP was 170/110 in the ER. - Continue home lisinopril & metoprolol - Hydralazine PRN for SBP > 190 or DBP > 110 (4) Diabetes mellitus type 2, uncontrolled: Plan: A1c was 10.5% in 10/2021. - Continue home Lantus 15 units SQ QHS - Sliding scale insulin - Hold oral meds (5) DVT prophylaxis: Plan: Lovenox 40 mg SQ daily History of Present Illness Primary Care Provider: Vince Vernon, DO 56yo F w/ hx of diabetic foot ulcer who presents for increasing nausea, vomiting, and pain. Per the patient, she went home in an ok state of health, still struggling with some level of pain control. A day or two ago, she stepped on her foot on the right side and felt a pop. She noted that her sutures had opened up. She has had increasing pain since that time. She notes the pain goes up into her right medial barbosa. She has also had increased throwing up in the last 2 days. She has not taken her Flagyl in 2 days, and did not take her daptomycin today. Allergies Allergy/AdvReac Type Severity Reaction Status Date / Time morphine Allergy Severe blisters Verified 12/03/21 20:36 in mouth Sulfa (Sulfonamide Allergy Severe rash/swelli Verified 12/03/21 20:36 Antibiotics) ng iron [From Venofer] Allergy Intermediate Hypertensio Verified 12/03/21 20:36 n vancomycin Allergy Intermediate YULIYA Verified 12/03/21 20:36 SYNDROME---CAN TAKE IF VERY SLOW DRIP. amoxicillin [From Augmentin] Allergy Mild itching/power Verified 12/03/21 20:36 h clavulanic acid Allergy Mild itching/power Verified 12/03/21 20:36 [From Augmentin] h Home Medications Medication Instructions Recorded Confirmed Type nortriptyline 50 mg capsule 100 mg PO HS 10/19/20 12/06/21 History (Pamelor) ropinirole 2 mg tablet 4 mg PO HS 10/19/20 12/06/21 History lancets (OneTouch UltraSoft #100 ea 11/12/20 11/24/21 History Lancets) albuterol sulfate 90 mcg/actuation 1 puff INHALATION QID PRN 03/05/21 12/06/21 History aerosol inhaler (Proventil HFA) metoprolol succinate 50 mg 50 mg PO QAM 03/05/21 12/06/21 History tablet,extended release 24 hr (Toprol XL) insulin glargine 100 unit/mL (3 15 unit SUBCUT HS #1 ml 08/18/21 12/06/21 Rx mL) subcutaneous pen (Basaglar KwikPen U-100 Insulin) insulin lispro 100 unit/mL 3 unit SUBCUT TIDM #1 ml 08/18/21 12/06/21 Rx subcutaneous pen (Humalog KwikPen (U-100) Insulin) aspirin 81 mg tablet,delayed 81 mg PO BID #60 tab 10/04/21 12/06/21 Rx release (Aspirin Low Dose) lisinopril 10 mg tablet 10 mg PO QAM #30 tab 10/04/21 12/06/21 Rx lorazepam 1 mg tablet (Ativan) 1 mg PO TID PRN 11/04/21 12/06/21 History cyclobenzaprine 10 mg tablet 10 mg PO BID tab 11/24/21 12/06/21 History zolpidem 12.5 mg tablet,extended 12.5 mg PO DAILY 11/29/21 12/06/21 History release,multiphase daptomycin 500 mg intravenous 1 dose NOT APPLICABLE UD #1 ea 12/01/21 12/06/21 Rx solution (Cubicin) metronidazole 500 mg tablet 500 mg PO TID 28 Days #84 tab 12/01/21 12/06/21 Rx metformin 500 mg tablet,extended 1,000 mg PO DAILY 12/06/21 12/06/21 History release 24 hr oxycodone-acetaminophen 5 mg-325 1 tab PO Q8 PRN 12/06/21 12/06/21 History mg tablet (Percocet) Past Med/Surg History Medical History 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 No issues per anesthesia postop progress note. Anemia Cellulitis Chronic back pain Depression Diabetic peripheral neuropathy DM2 (diabetes mellitus, type 2) IDDM, A1c 07/2021-11% Gastritis GIB (gastrointestinal bleeding) History of amputation of great toe Hyperlipidemia Insulin dependent diabetes mellitus Iron deficiency anemia Nonobstructive atherosclerosis of coronary artery Numbness of lower extremity Peripheral neuropathy Right second toe ulcer Seizures Surgical History History of cardiac cath done at [facility]; 09/22/19; LM - mild luminal irregularities. LAD - mid 20-30%, distal with myocardial bridge & 30% stenosis. L Cx - mild luminal irregularities. RCA - proximal <30% stenosis; mid/distal vessel mild plaques. PDA - mild luminal irregularities. History of esophagogastroduodenoscopy (EGD) Family History Mother , age 63 Myocardial infarction Father , age 68 or 69 Myocardial infarction Brother S/P CABG (coronary artery bypass graft) Sister Myocardial infarction x 3; she is 57yo Social History Smoking Status: Former smoker Tobacco Type: Cigarettes packs per day: 0.5; Years Smoked: 20; Cigarettes Per Day: 20; Second Hand Exposure: No; Hx Alcohol Use: No Hx Substance Use: Yes Prescribed Medications: Marijuana Last Used Substance: Days (ago) Last Used Substance Other:: 2 days ago Substance Use Type Other:: medical marijuana Preferred Language: [place] Islander Communication Ability: Effective Visual Impairment: No Limitations Hearing Ability: Normal Hand Flatwork Finisher Required: No Beliefs That Will Affect Care: None marital status: Current Living Situation: Spouse and Family current occupational status: unemployed 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 other: raising a grandchild as well; lives in [place] Feels Safe at Home: Yes during the past year weight has: remained stable Assistive Devices: Cane and Walker Review of Systems Review of Systems: All systems reviewed & are unremarkable except as noted in HPI & below Physical Exam Constitutional: WD/WN, vitals as above Eyes: EOM intact bilaterally; no conjunctival abnormality ENMT: external ear and nose normal, oropharynx normal Neck: trachea midline, no thyromegaly normal visual inspection Respiratory: normal respiratory effort, lungs clear to auscultation no respiratory distress Cardiovascular: RRR, no murmur, no edema Gastrointestinal (Abdomen): Inspection/Auscultation: abdomen normal to inspection; abdomen not distended Musculoskeletal: no cyanosis or clubbing, extremities motor strength 5/5 Skin: no rashes, warm and dry + ulcer (Open surgical site) Neurologic: moves all extremities and awake Psychiatric: Orientation: alert, oriented to person and cooperative Results & Data Results & Data ([facility]) Vital Signs (Past 12 Hours) Vital Signs Temp Pulse Pulse Resp BP BP Pulse Ox 12/06/21 15:00 105 H 18 207/101 H 97 12/06/21 13:18 98 12/06/21 13:00 106 H 21 181/115 H 97 12/06/21 11:48 36.7 C 115 H 14 174/97 H 97 PG Care Time/CCT Total # of Minutes Spent Total Time Spent with Patient: Total time spent is greater than 50% in coordination of care (as documented) at patient's floor/unit and/or counseling patient: Coding Level of Care Code 48337 Initial Inpt Care Lvl 3 Diagnoses Diabetic foot infection E11.628; L08.9 Nausea & vomiting R11.2 Vomiting type: unspecified HTN (hypertension) I10 Diabetes mellitus type 2, uncontrolled E11.65 DVT prophylaxis Z29.9 (1) Nausea & vomiting Vomiting type: unspecified Qualified Code(s): R11.2 - Nausea with vomiting, unspecified
[2021-12-06] MEDS ORDERED: metroNIDAZOLE 500 MG/100 ML BAG IV ONE (16:30)
--- NOTE | 2021-12-06 16:35 | XRay Report ---
XR chest 1V portable CLINICAL HISTORY: CHECK PICC LINE PLACEMENT TECHNIQUE: Single frontal radiograph of the chest was obtained. Comparison: Comparison is made to chest one view 09/07/2021 FINDINGS: Left PICC tip is at the cavoatrial junction. The cardiomediastinal silhouette is normal. The lungs ar e clear. No evidence of pleural effusion or pneumothorax. IMPRESSION: Satisfactory position of the left PICC. ACT 112: Negative or not required by law. Electronically signed by: Neil Mendieta M.D. 12/06/2021 4:33 PM
--- NOTE | 2021-12-06 17:29 | XRay Report ---
XR chest 1V portable CLINICAL HISTORY: PICC LINE ADJUSTMENT TECHNIQUE: Single frontal radiograph of the chest was obtained. Comparison: Comparison is made to chest one view 12/06/2021 FINDINGS: Redemonstration of a left PICC with the tip in the cavoatrial junction. The cardiomediastinal silhoue tte is normal. The lungs are clear. No evidence of pleural effusion or pneumothorax. IMPRESSION: No acute chest disease. ACT 112: Negative or not required by law. Electronically signed by: Neil Mendieta M.D. 12/06/2021 5:28 PM
[2021-12-06] MEDS ORDERED: GLUCOSE 10 TABS/TUBE PO PRN (20:19)
[2021-12-06] MEDS ORDERED: CEFEPIME 2,000 MG in SYRINGE 0 ML IV SCH (20:19)
[2021-12-06] MEDS ORDERED: CARBOHYDRATES FOR HYPOGLYCEMIA PO PRN (20:19)
[2021-12-06] MEDS ORDERED: GLUCOSE 40% GEL 15 GM TUBE PO PRN (20:19)
[2021-12-06] MEDS ORDERED: GLUCAGON FOR INJ 1 MG VIAL SQ PRN (20:19)
[2021-12-06] MEDS ORDERED: ALBUTEROL HFA 8 GM INHALER INH PRN (20:19)
[2021-12-06] MEDS ORDERED: DEXTROSE 50% 50 ML SYRINGE IV PRN (20:19)
[2021-12-06] MEDS ORDERED: NON-FORMULARY MEDICATION (Insulin Lispro [Humalog Kwikpen Insulin] 100 unit/mL insulin pen SQ SCH (20:19)
[2021-12-06] MEDS ORDERED: ONDANSETRON INJ 2 MG/ML 2 ML VIAL ONE (20:47)
[2021-12-06] MEDS ORDERED: ZOLPIDEM TARTRATE 10 MG TAB PO PRN (21:35)
[2021-12-06] MEDS: oxyCODONE/ACETAMINOPHEN 5mg/325mg TAB PO PRN (22:07)
[2021-12-06] MEDS: ASPIRIN 81 MG ECTAB PO SCH (22:09)
[2021-12-06] MEDS: CLINDAMYCIN 600 MG in DEXTROSE 5% 50 ML IV SCH (22:09)
[2021-12-06] MEDS: rOPINIRole HCL 2 MG TABLET PO SCH (22:10)
[2021-12-06] MEDS: NORTRIPTYLINE HCL 25 MG CAP PO SCH (22:10)
[2021-12-06] MEDS: INSULIN GLARGINE SOLOSTAR 100 UNITS/ML 3 ML PEN SQ SCH (22:10)
[2021-12-06] MEDS: INSULIN ASPART PER UNIT SC SCH (22:14)
[2021-12-06] MEDS ORDERED: HYDROmorphone INJ 0.5 MG/0.5 ML SYR IV STA (23:17)
[2021-12-07] MEDS: oxyCODONE/ACETAMINOPHEN 5mg/325mg TAB PO PRN (03:46)
[2021-12-07] MEDS: ONDANSETRON INJ 2 MG/ML 2 ML VIAL IV PRN ×3 (03:51→16:30)
[2021-12-07] MEDS ORDERED: HYDROmorphone INJ 1 MG/ML SYRINGE IV STA (04:36)
[2021-12-07] MEDS ORDERED: HYDROmorphone INJ 0.5 MG/0.5 ML SYR IV STA (04:55)
[2021-12-07 06:49] LABS: BUN Creatinine Ratio 20.5 (10-20); Est GFR (African American) 135.1 ml/min; Est GFR (Non-African American) 116.6 ml/min; Magnesium 1.7 mg/dl (1.7-2.4); Potassium 4.1 mmol/L (3.5-5.1)
[2021-12-07] MEDS ORDERED: LORATADINE 10 MG TAB PO ONE (07:00)
--- NOTE | 2021-12-07 07:08 | Ultrasound Report ---
ULTRASOUND RIGHT LOWER EXTREMITY VENOUS CLINICAL HISTORY: Right leg pain. COMPARISON STUDY: Right lower extremity venous ultrasound dated 08/09/2021. TECHNIQUE: Real-time, grayscale, and color Doppler sonography of the deep veins of the right lower ex tremity was performed from the inguinal crease to the calf. Compression and augmentation were utilize d. FINDINGS: There is no sonographic evidence of deep venous thrombosis identified in the right lower ex tremity. The common femoral, superficial femoral, and popliteal veins are patent and normally emeli sible. The greater saphenous vein and the profunda femoris vein at the junction with the common femor al vein are clear. The visualized calf veins are patent. A mildly enlarged right inguinal lymph node measures 3.9 x 1.1 x 3.4 cm. IMPRESSION: 1. There is no sonographic evidence of deep venous thrombosis identified in the right lower extremity . 2. A prominent right inguinal lymph node is likely reactive. Clinical correlation will be required. ACT 112: Negative or not required by law. Electronically signed by: Finn Bradshaw M.D. 12/07/2021 7:06 AM
[2021-12-07] MEDS: CLINDAMYCIN 600 MG in DEXTROSE 5% 50 ML IV SCH ×3 (07:18→22:00)
[2021-12-07 08:16] LABS: Hematocrit (blood only) 38.6 % (37-47); Hemoglobin 12.3 g/dL (12.0-16.0); Mean Corpuscular Hemoglobin 24.6 pg (25-34); Mean Corpuscular Hgb Conc 31.9 g/dL (32-36); Mean Corpuscular Volume 77.2 fL (80-100); Mean Platelet Volume 9.7 fL (7.4-10.4); Platelet Count 343 K/uL (130-400); RDW Coefficient of Variation 14.6 % (11.5-14.5); RDW Standard Deviation 41.1 fL (36.4-46.3); White Blood Count 13.18 K/uL (4.8-10.8)
[2021-12-07] MEDS: LORazepam 1 MG TAB PO PRN (08:16)
[2021-12-07] MEDS: lisinopril 10 MG TAB PO SCH (08:52)
[2021-12-07] MEDS: ASPIRIN 81 MG ECTAB PO SCH ×2 (08:52→21:59)
[2021-12-07] MEDS: METOPROLOL SUCC 50MG EXT REL TAB PO SCH (08:53)
[2021-12-07] MEDS: INSULIN ASPART PER UNIT SC SCH ×4 (09:02→21:57)
[2021-12-07] MEDS: ENOXAPARIN INJ 40 MG/0.4 ML SYR SQ SCH (09:05)
[2021-12-07] MEDS ORDERED: NALOXONE HCL 0.4 MG/1 ML VIAL/CARP IV PRN (09:30)
[2021-12-07] MEDS ORDERED: HYDROmorphone PCA 30 MG/30 ML IV PRN (09:30)
--- NOTE | 2021-12-07 09:36 | Hospitalist Progress Note ---
Date of Service December 07, 2021 Assessment & Plan (1) Diabetic foot infection: Plan: Persistent osteomyelitis s/p multiple surgeries. Seen by ID in the hospital on 11/30 with recs of 6 weeks of daptomycin and Flagyl; however, is not tolerating oral Flagyl and stopped taking it 2 days ago. - Continue home daptomycin -in regards to her pain, will order dilaudid SPORTS COORDINATOR. - Discussed with pharmacy -> switch metronidazole to clindamycin 600 mg PO Q8h -may consider ID consult, or curbside with Dr. Arciniega. - RLE u/s to r/o DVT - Orthopedics consulted: awaiting input. - Wound consulted (2) Nausea & vomiting: Plan: Likely due to metronidazole. -currentluy no longer complaining of nausea. - Advance diet as able - Zofran PRN (3) HTN (hypertension): Plan: BP improved. - Continue home lisinopril & metoprolol - Hydralazine PRN for SBP > 190 or DBP > 110 (4) Diabetes mellitus type 2, uncontrolled: Plan: A1c was 10.5% in 10/2021. - Continue home Lantus 15 units SQ QHS - Sliding scale insulin - Hold oral meds (5) DVT prophylaxis: Plan: Lovenox 40 mg SQ daily Admission and Anticipated Discharge Date Admission Date: December 06, 2021 Subjective Patient reports having signifciant pain in her affected foot. Stating that her percocet is not controlling the pain Review of Systems Review of Systems: All systems reviewed & are unremarkable except as noted in HPI & below Physical Exam Physical Exam: Constitutional: WD/WN, vitals as above Eyes: EOM intact bilaterally; no conjunctival abnormality ENMT: external ear and nose normal, oropharynx normal Neck: trachea midline, no thyromegaly normal visual inspection Respiratory: normal respiratory effort, lungs clear to auscultation no respiratory distress Cardiovascular: RRR, no murmur, no edema Gastrointestinal (Abdomen): Inspection/Auscultation: abdomen normal to inspection; abdomen not distended Musculoskeletal: no cyanosis or clubbing, extremities motor strength 5/5 Skin: no rashes, warm and dry + ulcer (Open surgical site) Neurologic: moves all extremities and awake Psychiatric: Orientation: alert, oriented to person and cooperative Results & Data Results & Data ([facility]) Vital Signs (Past 12 Hours) Vital Signs Temp Pulse Resp BP Pulse Ox 12/07/21 07:45 36.7 C 107 H 18 168/92 H 98 PG Care Time/CCT Total # of Minutes Spent Total Time Spent with Patient: Total time spent is greater than 50% in coordination of care (as documented) at patient's floor/unit and/or counseling patient: Coding Level of Care Code 32778 Subseq Hosp Care Lvl 3 Diagnoses Diabetic foot infection E11.628; L08.9 Nausea & vomiting R11.2 Vomiting type: unspecified HTN (hypertension) I10 Diabetes mellitus type 2, uncontrolled E11.65 DVT prophylaxis Z29.9 (1) Nausea & vomiting Vomiting type: unspecified Qualified Code(s): R11.2 - Nausea with vomiting, unspecified
[2021-12-07] MEDS: SODIUM CHLORIDE 0.9% 1000ML 1,000 ML IV SCH (10:38)
[2021-12-07] MEDS: DOCUSATE SODIUM 100 MG CAP PO SCH ×2 (10:38→21:59)
[2021-12-07] MEDS: DAPTOmycin 500 MG in SYRINGE 0 ML IV SCH (16:16)
--- NOTE | 2021-12-07 17:11 | Electrocardiogram Report ---
Test Reason : Blood Pressure : / mmHG Vent. Rate : 090 BPM Atrial Rate : 090 BPM P-R Int : 146 ms QRS Dur : 088 ms QT Int : 356 ms P-R-T Axes : 038 055 063 degrees QTc Int : 435 ms Normal sinus rhythm Poor R wave progression, consider anterior MN vs. lead placement vs. LVH Abnormal ECG When compared with ECG of 06-DEC-2021 11:52, No significant change was found Confirmed by Julito Colon ([id number]) on 12/07/2021 5:10:42 PM Referred By: REFERRED SELF Confirmed By:Julito Colon
--- NOTE | 2021-12-07 17:24 | Orthopedic Consultation ---
Date of Consultation December 07, 2021 Assessment & Plan (1) Diabetic foot infection: Mild to moderate wound dehiscence with sutures that have given way. I reviewed this with Dr. Sanford. No obvious purulence. X-ray not showing any further bony destruction than prior. I will discussed the case with Dr. Montaño. Continue IV antibiotics at this time. Wound care nurse was consulted for however patient refused. Plan to continue daily dressing changes for now. Await Dr. Montaño's input. History of Present Illness Reason for Consultation: Chronic right medial foot wound Attending Physician: Ricardo Hernadez History of Present Illness Patient is a 56-year-old female known to our practice who has history of chronic infection of her right foot including amputation of the first and second toes along with several irrigation debridements of a right medial foot wound, and persistent osteomyelitis. Most recent surgery was 11/26/[address] Montaño of which he again did an I&D of a deep medial abscess along with a posterior tibial tendon tear debridement with resection of the posterior tibial tendon, tenosynovectomy and irrigation debridement of the diabetic neuropathic ulcer. Patient went under ID consult and the plans were for IV antibiotics for 6 weeks and to start the patient on oral Augmentin twice daily. Somewhere in the interim the patient was put on metronidazole rather than the Augmentin. Patient states that she has been starting to have abdominal discomfort along with nausea and vomiting as well as pain. She also complains of pain in her right foot. She states that on Sunday some of her stitches had popped open. The current chart states that she had put weight on the foot and that popped however she states to me that then popped while she was in bed. She states that she came to the emergency room and was seen by the staff. No obvious infection was noted with no fractures and she was thusly sent home with plans for follow-up. She was admitted last night with the above-noted history. She has been continued on her daptomycin and her Augmentin has been changed to clindamycin. We have been asked to see her for her right foot wound. Allergies Allergy/AdvReac Type Severity Reaction Status Date / Time morphine Allergy Severe blisters Verified 12/03/21 20:36 in mouth Sulfa (Sulfonamide Allergy Severe rash/swelli Verified 12/03/21 20:36 Antibiotics) ng iron [From Venofer] Allergy Intermediate Hypertensio Verified 12/03/21 20:36 n vancomycin Allergy Intermediate YULIYA Verified 12/03/21 20:36 SYNDROME---CAN TAKE IF VERY SLOW DRIP. amoxicillin [From Augmentin] Allergy Mild itching/power Verified 12/03/21 20:36 h clavulanic acid Allergy Mild itching/power Verified 12/03/21 20:36 [From Augmentin] h Home Medications Medication Instructions Recorded Confirmed Type nortriptyline 50 mg capsule 100 mg PO HS 10/19/20 12/06/21 History (Pamelor) ropinirole 2 mg tablet 4 mg PO HS 10/19/20 12/06/21 History lancets (OneTouch UltraSoft #100 ea 11/12/20 11/24/21 History Lancets) albuterol sulfate 90 mcg/actuation 1 puff INHALATION QID PRN 03/05/21 12/06/21 History aerosol inhaler (Proventil HFA) metoprolol succinate 50 mg 50 mg PO QAM 03/05/21 12/06/21 History tablet,extended release 24 hr (Toprol XL) insulin glargine 100 unit/mL (3 15 unit SUBCUT HS #1 ml 08/18/21 12/06/21 Rx mL) subcutaneous pen (Basaglar KwikPen U-100 Insulin) insulin lispro 100 unit/mL 3 unit SUBCUT TIDM #1 ml 08/18/21 12/06/21 Rx subcutaneous pen (Humalog KwikPen (U-100) Insulin) aspirin 81 mg tablet,delayed 81 mg PO BID #60 tab 10/04/21 12/06/21 Rx release (Aspirin Low Dose) lisinopril 10 mg tablet 10 mg PO QAM #30 tab 10/04/21 12/06/21 Rx lorazepam 1 mg tablet (Ativan) 1 mg PO TID PRN 11/04/21 12/06/21 History cyclobenzaprine 10 mg tablet 10 mg PO BID tab 11/24/21 12/06/21 History zolpidem 12.5 mg tablet,extended 12.5 mg PO DAILY 11/29/21 12/06/21 History release,multiphase daptomycin 500 mg intravenous 1 dose NOT APPLICABLE UD #1 ea 12/01/21 12/06/21 Rx solution (Cubicin) metronidazole 500 mg tablet 500 mg PO TID Days #84 tab 12/01/21 12/06/21 Rx metformin 500 mg tablet,extended 1,000 mg PO DAILY 12/06/21 12/06/21 History release 24 hr oxycodone-acetaminophen 5 mg-325 1 tab PO Q8 PRN 12/06/21 12/06/21 History mg tablet (Percocet) Patient History Medical History 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 No issues per anesthesia postop progress note. Anemia Cellulitis Chronic back pain Depression Diabetic peripheral neuropathy DM2 (diabetes mellitus, type 2) IDDM, A1c 07/2021-11% Gastritis GIB (gastrointestinal bleeding) History of amputation of great toe Hyperlipidemia Insulin dependent diabetes mellitus Iron deficiency anemia Nonobstructive atherosclerosis of coronary artery Numbness of lower extremity Peripheral neuropathy Right second toe ulcer Seizures Surgical History History of cardiac cath done at [facility]; 09/22/19; LM - mild luminal irregularities. LAD - mid 20-30%, distal with myocardial bridge & 30% stenosis. L Cx - mild luminal irregularities. RCA - proximal <30% stenosis; mid/distal vessel mild plaques. PDA - mild luminal irregularities. History of esophagogastroduodenoscopy (EGD) Family History Mother , age 63 Myocardial infarction Father , age 68 or 69 Myocardial infarction Brother S/P CABG (coronary artery bypass graft) Sister Myocardial infarction x 3; she is 57yo Social History Smoking Status: Former smoker Tobacco Type: Cigarettes packs per day: 0.5; Years Smoked: 20; Cigarettes Per Day: 20; Second Hand Exposure: No; Do You Dip or Chew Tobacco: No; Tobacco Cessation Education Requested by Patient: No Hx Alcohol Use: No Hx Substance Use: No Preferred Language: Albanian Communication Ability: Effective Visual Impairment: No Limitations Hearing Ability: Normal Account Management Assistant Required: No Beliefs That Will Affect Care: None marital status: Current Living Situation: Spouse and Family current occupational status: unemployed 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 other: raising a grandchild as well; lives in [place] Feels Safe at Home: Yes Safety Concerns: Feels Safe At This Time during the past year weight has: remained stable Assistive Devices: Walker Physical Exam Physical Exam: Patient is a 56-year-old white female who appears her stated age, pleasant and cooperative, no acute distress, oriented x3. On examination of her right foot wound, I noticed immediately that there is no dressing on the wound itself. Several of the nylon sutures have been torn in the main body of the wound. The wound base itself is pink and red with no obvious purulence and no yellow slough. There is no foul odor. Her more distal medial wound remains closed with a small amount of eschar noted at the more proximal portion. There is some mild erythema around the larger wound itself. Results & Data ([facility]) Vital Signs (Past 12 Hours) Vital Signs Temp Pulse Resp BP Pulse Ox 12/07/21 15:00 89 16 116/71 94 12/07/21 13:58 36.8 C 89 16 144/74 H 100 12/07/21 12:52 36.7 C 92 H 18 125/76 100 12/07/21 11:45 37.0 C 91 H 18 144/85 H 98 12/07/21 10:46 36.9 C 90 16 138/80 100 12/07/21 07:45 36.7 C 107 H 18 168/92 H 98 Diagnostic Findings Patient:EILEEN ESCOBAR Admit Date:12/06/21 MR#:[id number] Address[address] [facility] Acct ID:[id number] Address2: Date:1965 [facility] Zip:[place] [address] Age:56 Location:ED Sex:F Room/Bed: Att Phy: Diagnosis:FOOT PAIN, HEMATEMESIS Ana Maria Phy:Vince Vernon DO Service Date:12/06/21 [facility] Phy: Interpreting Phy:Wilver Powell MDAit Phy: Ordering Phy:John Saez M.D. cc: ~ XR foot RT min 3V routine CLINICAL HISTORY: pain, hx osteo COMPARISON: Right foot radiographs December 03, 2021. MRI of the right foot November 24, 2021. FINDINGS: Note is again made of soft tissue swelling surrounding the amputated right first and second toes. No progressive bony destruction is present. Sclerosis and periosteal reaction are similar to prior exam. No acute fracture is identified. There are no radiopaque foreign bodies. Tarsometatarsal joints are intact. IMPRESSION: 1. Soft tissue swelling of the right forefoot, adjacent to the first and second digit amputations which favors cellulitis. 2. No change in appearance of the right first and second metatarsals status post amputation. No evidence for progressive bony destruction.
[2021-12-07] MEDS: INSULIN GLARGINE SOLOSTAR 100 UNITS/ML 3 ML PEN SQ SCH (21:57)
[2021-12-07] MEDS: rOPINIRole HCL 2 MG TABLET PO SCH (21:58)
[2021-12-07] MEDS: NORTRIPTYLINE HCL 25 MG CAP PO SCH (22:00)
[2021-12-07] MEDS: MELATONIN 3 MG TAB PO PRN (23:01)
[2021-12-08] MEDS: CLINDAMYCIN 600 MG in DEXTROSE 5% 50 ML IV SCH ×3 (06:26→22:50)
[2021-12-08 08:16] LABS: Hematocrit (blood only) 35.5 % (37-47); Hemoglobin 11.4 g/dL (12.0-16.0); Mean Corpuscular Hemoglobin 24.7 pg (25-34); Mean Corpuscular Hgb Conc 32.1 g/dL (32-36); Mean Platelet Volume 9.3 fL (7.4-10.4); Platelet Count 300 K/uL (130-400); RDW Coefficient of Variation 14.7 % (11.5-14.5); RDW Standard Deviation 41.4 fL (36.4-46.3); Red Blood Count 4.61 M/uL (4.2-5.4); White Blood Count 12.23 K/uL (4.8-10.8)
[2021-12-08] MEDS: ENOXAPARIN INJ 40 MG/0.4 ML SYR SQ SCH (08:45)
[2021-12-08] MEDS: METOPROLOL SUCC 50MG EXT REL TAB PO SCH (08:45)
[2021-12-08] MEDS: lisinopril 10 MG TAB PO SCH (08:46)
[2021-12-08] MEDS: ASPIRIN 81 MG ECTAB PO SCH ×2 (08:46→20:54)
[2021-12-08] MEDS: DOCUSATE SODIUM 100 MG CAP PO SCH ×2 (08:47→20:54)
[2021-12-08 08:48] LABS: Calcium 8.8 mg/dl (8.5-10.1); Est GFR (African American) 135.1 ml/min; Est GFR (Non-African American) 116.6 ml/min; Potassium 4.3 mmol/L (3.5-5.1)
[2021-12-08] MEDS: INSULIN ASPART PER UNIT SC SCH ×4 (08:53→21:55)
--- NOTE | 2021-12-08 13:12 | Hospitalist Progress Note ---
Date of Service December 08, 2021 Assessment & Plan (1) Diabetic foot infection: Plan: Status post multiple surgeries for osteomyelitis with Dr. Montaño of the [facility] orthopedic group. Patient admitted 2 days ago for nausea and vomiting and foot pain. Patient had been on daptomycin and metronidazole with recommendation of 6 weeks of treatment. Patient was transition from metronidazole to clindamycin due to nausea and vomiting. Orthopedics was consulted and did examine the foot. At this point there is some dehiscence but there does not appear to be a need for surgical debridement or washout. I personally discussed case with orthopedics. Unable to use wound VAC therapy due to location of wound. Continue IV antibiotics per ID consult recommendations and convert to p.o. per their advice Telemedicine infectious disease consult was provided during the patient's hosp ital admission last time on 11/30/2021. Afebrile, WBC decreasing,Procalcitonin less than 0.05 Continue current management plan. Further management per orthopedics and ID (2) Nausea & vomiting: Plan: Patient presented with nausea and vomiting. The vomiting is now resolved. No abdominal pain at this time. Patient is tolerating full diet without any complication. Suspected that this may have been from metronidazole. This has been changed to clindamycin. Continue with Zofran as needed. EKG reviewed. QTC 435 ms (3) HTN (hypertension): Plan: Blood pressure stable at 121/78. Hemodynamically stable Pain or tightness. Continues lisinopril 10 mg p.o. every morning, metoprolol succinate 50 mg p.o. every morning, and hydralazine as needed (4) Diabetes mellitus type 2, uncontrolled: Plan: Hemoglobin A1c has been consistently above 10 Currently sugars are maintained below 160 primarily during this admission Patient seen by diabetic education while inpatient Emphasized need for better diet better control to control infection and neuropathy (5) Foot pain, right: Plan: Secondary to osteomyelitis and recent surgery Placed on a Dilaudid [employer] yesterday Will discontinue the [employer] and provide combination between Dilaudid IV and oxycodone p.o. Patient requesting de-escalation of pain meds (6) Wound dehiscence, surgical: Plan: Orthopedic consultation No immediate need for washout or surgical intervention Dr. Montaño will see patient tomorrow Continue with antibiotics per orthopedics and ID (7) Osteomyelitis: Plan: Patient encouraged to follow with ID as an outpatient Currently afebrile. White count is decreasing. Continue clindamycin and daptomycin per ID recommendations (8) DVT prophylaxis: Plan: Continue enoxaparin Ambulation per orthopedics Case discussed with Dr. Carvajal. Please review his addendum for any corrections or changes. Admission and Anticipated Discharge Date Admission Date: December 06, 2021 Supervising Physician Co-Signing Physician Notes Attending Attestation - Chart reviewed in detail, care plan d/w PA Finn Warren. I agree w/ the tanner components of his documentation as well as his plan of care as outlined. Silvestre Carvajal MD Subjective Attending: Dr. Carvajal Patient is a 56-year-old female that had osteomyelitis of the right foot. She underwent surgery for that with Dr. Montaño. She reports that she had a suture open and is currently in the hospital receiving IV antibiotics. Chief complaint on admission was nausea and vomiting. Patient is currently afebrile. She has been changed from metronidazole to clindamycin and is also taking daptomycin. She was seen by ID via telemedicine her last inpatient mission. She is to undergo 6 weeks of IV antibiotics followed by oral antibiotics. If patient does not show improvement, she most likely will require amputation of the right foot. Patient is aware of this is very anxious that this may be a requirement. Patient is diabetic. Her hemoglobin A1c is 10.5. However her sugars have been mostly been below 160. Patient is afebrile. She denies any chest pain or tightness. No shortness of breath. She does have some anxiety as they have withheld her benzodiazepines since admission. She has no other acute complaints at this time. Review of Systems Review of Systems: A total of 10 systems was reviewed and is negative other than as listed above in the HPI. Physical Exam Physical Exam: GENERAL : No acute distress but somewhat anxious EYES: No icterus, gaze conjugate NOSE: No evidence of epistaxis MOUTH: No lesions or candidiasis NECK: Supple LUNGS: CTA B/L, no wheezes, rales or rhonchi. Good inspirational effort HEART: Regular, rate controlled ABDOMEN: Soft, NT, ND, BS Present EXTREMITIES: No LE edema, pedal pulses intact and equal bilaterally. Pulse to right foot is easily felt through Mikey wraps. Patient has no evidence of developing cellulitis above her ankle wrap. NEURO: A&OX3 Results & Data Results & Data ([facility]) Vital Signs (Past 12 Hours) Vital Signs Temp Pulse Resp BP Pulse Ox 12/08/21 11:38 36.5 C 78 16 121/78 99 12/08/21 08:41 90 128/76 12/08/21 07:24 36.5 C 86 14 101/66 97 12/08/21 01:19 36.7 C 82 14 103/64 97 Critical Care Results & Data Vital Signs (Past 12 Hours) Vital Signs Temp Pulse Resp BP Pulse Ox 12/08/21 11:38 36.5 C 78 16 121/78 99 12/08/21 08:41 90 128/76 12/08/21 07:24 36.5 C 86 14 101/66 97 12/08/21 01:19 36.7 C 82 14 103/64 97 Lab & Micro Results (Past 24 Hours) No Data to Display Na 134 mmol/L (136-145) L 12/09/21 K 4.2 mmol/L (3.5-5.1) 12/09/21 Cl 100 mmol/L (98-107) 12/09/21 CO2 28 mmol/L (21-32) 12/09/21 Anion Gap 6 (3-11) 12/09/21 BUN 13 mg/dl (6-23) 12/09/21 Creatinine 0.39 mg/dl (0.6-1.2) L 12/09/21 Estimated GFR ( Amer) 135.1 ml/min 12/09/21 Estimated GFR (Non-Af Amer) 116.6 ml/min 12/09/21 BUN/Creatinine Ratio 33.3 (10-20) H 12/09/21 Glu 159 mg/dl (70-99(Fasting)) H 12/09/21 Ca 9.1 mg/dl (8.5-10.1) 12/09/21 Calcium Level 9.1 mg/dl (8.5-10.1) 12/09/21 06:02 12/09/21 Microbiology 12/06/21 18:17 Aerobic Blood Culture - Preliminary Blood No growth in Aerobic bottle after 24 hours. Anaerobic Blood Culture - Preliminary No growth in Anaerobic bottle after 24 hours. 12/06/21 14:44 Aerobic Blood Culture - Preliminary Blood No growth in Aerobic bottle after 24 hours. Anaerobic Blood Culture - Preliminary No growth in Anaerobic bottle after 24 hours. I & O Totals 24 Hours 12/07/21 12/08/21 12/09/21 06:59 06:59 06:59 Intake Total 654 / 654 722 / 722 54 / 54 Output Total 700 / 700 450 / 450 Balance -46 / -46 272 / 272 54 / 54 Cumulative 12/06/21 11:31 thru 12/08/21 12:22 Intake Total 1430 Output Total 1150 Balance 280 RT Ventilator Mngmt (Last Documented) Ventilator Ordered Settings Respiratory Rate 16 12/08/21 11:38 Ventilator - PT Measurements Respiratory Rate 16 PG Care Time/CCT Total # of Minutes Spent Total Time Spent with Patient: Total time spent is greater than 50% in coordination of care (as documented) at patient's floor/unit and/or counseling patient: Coding Level of Care Code 18426 Subseq Hosp Care Lvl 2 Diagnoses Diabetic foot infection E11.628; L08.9 Nausea & vomiting R11.2 Vomiting type: unspecified HTN (hypertension) I10 Diabetes mellitus type 2, uncontrolled E11.65 Foot pain, right M79.671 Wound dehiscence, surgical T81.31XA Osteomyelitis M86.9 Laterality: right Osteomyelitis location: foot Osteomyelitis type: unspecified type DVT prophylaxis Z29.9 (1) Nausea & vomiting Vomiting type: unspecified Qualified Code(s): R11.2 - Nausea with vomiting, unspecified (2) Osteomyelitis Laterality: right Osteomyelitis location: foot Osteomyelitis type: unspecified type Qualified Code(s): M86.9 - Osteomyelitis, unspecified
[2021-12-08] MEDS: DAPTOmycin 500 MG in SYRINGE 0 ML IV SCH (16:41)
[2021-12-08] MEDS: SODIUM CHLORIDE 0.9% 1000ML 1,000 ML IV SCH (16:50)
[2021-12-08] MEDS: oxyCODONE/ACETAMINOPHEN 5mg/325mg TAB PO PRN (17:21)
[2021-12-08] MEDS: HYDROmorphone INJ 1 MG/ML SYRINGE IV PRN (20:40)
[2021-12-08] MEDS: LORazepam 1 MG TAB PO PRN (20:53)
[2021-12-08] MEDS: MELATONIN 3 MG TAB PO PRN (20:53)
[2021-12-08] MEDS: rOPINIRole HCL 2 MG TABLET PO SCH (20:53)
[2021-12-08] MEDS: NORTRIPTYLINE HCL 25 MG CAP PO SCH (20:53)
[2021-12-08] MEDS: INSULIN GLARGINE SOLOSTAR 100 UNITS/ML 3 ML PEN SQ SCH (21:55)
[2021-12-08] MEDS: ZOLPIDEM TARTRATE 10 MG TAB PO PRN (22:06)
[2021-12-09] MEDS: HYDROmorphone INJ 1 MG/ML SYRINGE IV PRN ×6 (02:43→21:34)
[2021-12-09] MEDS: CYCLOBENZAPRINE HCL 10 MG TAB PO PRN (05:03)
[2021-12-09] MEDS: CLINDAMYCIN 600 MG in DEXTROSE 5% 50 ML IV SCH ×3 (06:38→23:00)
[2021-12-09] MEDS: LORazepam 1 MG TAB PO PRN ×2 (06:38→14:11)
[2021-12-09 07:05] LABS: BUN Creatinine Ratio 33.3 (10-20); Calcium 9.1 mg/dl (8.5-10.1); Est GFR (African American) 135.1 ml/min; Est GFR (Non-African American) 116.6 ml/min; Potassium 4.2 mmol/L (3.5-5.1)
[2021-12-09] MEDS: INSULIN ASPART PER UNIT SC SCH ×4 (08:44→21:37)
[2021-12-09] MEDS: ENOXAPARIN INJ 40 MG/0.4 ML SYR SQ SCH (08:45)
[2021-12-09] MEDS: ASPIRIN 81 MG ECTAB PO SCH ×2 (08:46→20:49)
[2021-12-09] MEDS: DOCUSATE SODIUM 100 MG CAP PO SCH ×2 (08:46→20:49)
[2021-12-09] MEDS: METOPROLOL SUCC 50MG EXT REL TAB PO SCH (08:46)
[2021-12-09] MEDS: lisinopril 10 MG TAB PO SCH (08:46)
[2021-12-09] MEDS: oxyCODONE/ACETAMINOPHEN 5mg/325mg TAB PO PRN ×3 (10:12→23:00)
[2021-12-09] MEDS ORDERED: LORATADINE 10 MG TAB PO ONE (13:29)
--- NOTE | 2021-12-09 14:43 | Hospitalist Progress Note ---
Date of Service December 09, 2021 Assessment & Plan (1) Diabetic foot infection: Plan: 11/26/21 -- RIGHT foot/ankle - Operative info: POSTOPERATIVE DIAGNOSES: 1. Right foot medial deep abscess. 2. Posterior tibial tendon septic tenosynovitis. 3. Septic tenosynovitis of the flexor digitorum longus tendon. 4. Posterior tibial tendon rupture. 5. Diabetic neuropathic ulcer of the medial ankle measuring 2.5 x 1.75 x 1.0 cm. PROCEDURE: 1. Right foot incision and drainage deep medial abscess. 2. Irrigation and debridement, posterior tibial tendon tear with resection of the posterior tibial tendon. 3. Tenosynovectomy of the posterior tibial tendon and flexor digitorum longus tendons. 4. Irrigation and debridement, medial ankle diabetic neuropathic ulcer measuring 2.5 x 1.75 x 1.0 cm including skin, subcutaneous tissue, fascia and tendon sheath. Telehealth ID consult during prior admission - daptomycin + PO flagyl advised. Some concern that flagyl was causing #2 at time of admission. Thus, flagyl changed to IV clindamycin. Tolerating lateral abx. No diarrhea. Inflammatory markers all improved/stable. I checked uric acid level to ensure she has no gouty arthritis contributing to R foot/ankle pain -- uric acid wnl. I corresponded with Kaushik Jones from [facility] - a photo of the foot/ankle from several days ago in comparison to the appearance of the foot today is MARKEDLY IMPROVED. Will allow the dilaudid to be q3h prn. Await Dr Montaño's assessment. Will she need repeat imaging to ensure no deep infection that would require additional surgery? Repeat labs am. Continue IV daptomycin + IV clindamycin. Add probiotics. (2) Nausea & vomiting: Plan: Patient presented with nausea and vomiting - resolved. Suspected that this may have been from metronidazole. May have been gastroparesis related as well. Now on clindamycin and doing well without GI symptoms. (3) HTN (hypertension): Plan: Controlled. Continue lisinopril 10 mg p.o. every morning, metoprolol succinate 50 mg p.o. every morning, and hydralazine prn. (4) Diabetes mellitus type 2, uncontrolled: Plan: Hemoglobin A1c has been consistently above 10%. Controlled at this time with lantus + novolog SSI. (5) Foot pain, right: Plan: Change q6h dilaudid prn to q3h prn. Consider NSAID (toradol) if refractory pain. See #1 above. (6) Wound dehiscence, surgical: Plan: Orthopedic consultation appreciated. Dr. Montaño to see sometime today. Continue with antibiotics. (7) Osteomyelitis: Plan: 11/24/21 MRI right foot - "chronic stable osteomyelitis involving the first and second metatarsals". Continue clindamycin and daptomycin for now. (8) DVT prophylaxis: Plan: Continue enoxaparin 40mg daily. Plan: needs PT/OT to assess ambulation Admission and Anticipated Discharge Date Admission Date: December 06, 2021 Subjective received correspondence from nursing this am that pt's pain control was very poor q6h prn dilaudid wearing off after just a few hours review of PDMP website shows she receives scripts for monthly oxycodone during my rounds she c/o ongoing right foot, right ankle, and right distal barbosa pain weight-bearing on the foot is difficult if not impossible at times due to pain worst pain is long the medial aspect of foot from the first MTP to the medial ankle in comparison to when she first got admitted a few days ago the pain "is better" but still severe denies knee pain on right denies right thigh pain eating fine no dyspnea no fevers Review of Systems Review of Systems: gen - no fevers or chills cv - no cp, no orthopnea GI - no abd pain, nausea or emesis pulm - no dyspnea Physical Exam Physical Exam: gen - NAD, awake, alert mouth - MMM, no thrush heart - RRR, s1 s2, no murmur lungs - CTA b/l abd - soft NT ND BS+ vascular - right foot 2+ DP and pos tib pulses, perfusion nl/cap refill <2sec musculo - R first/2nd toes absent; 3-5th toes wnl; able to passively/actively range the R ankle without difficulty; tender to palpation along medial mid-foot but no dorsal mid-foot pain; mild pain over instep of ankle to palpation; no gross abnormality of distal tib-fib skin - 2 wounds, 1 is closed with intact sutures; 2nd is dehisced with mild fishmouth opening; no drainage; mild pink erythema over entire medial foot; first MTP slightly tender but no inflammation Results & Data Results & Data ([facility]) Vital Signs (Past 12 Hours) Vital Signs Temp Pulse Resp BP Pulse Ox 12/09/21 13:03 36.7 C 80 16 129/80 98 12/09/21 07:45 36.8 C 60 16 179/81 H 100 12/09/21 07:00 36.8 C 85 18 145/62 H 93 Laboratory Results sed rate,crp,uric acid wnl bmp wnl ferritin<20 cbc wnl on 12/08 with Wbc 12 PG Care Time/CCT Total # of Minutes Spent Total Time Spent with Patient: Total time spent is greater than 50% in coordination of care (as documented) at patient's floor/unit and/or counseling patient: Coding Level of Care Code 33816 Subseq Hosp Care Lvl 3 Diagnoses Diabetic foot infection E11.628; L08.9 Nausea & vomiting R11.2 Vomiting type: unspecified HTN (hypertension) I10 Diabetes mellitus type 2, uncontrolled E11.65 Foot pain, right M79.671 Wound dehiscence, surgical T81.31XA Osteomyelitis M86.9 Laterality: right Osteomyelitis location: foot Osteomyelitis type: unspecified type DVT prophylaxis Z29.9 (1) Nausea & vomiting Vomiting type: unspecified Qualified Code(s): R11.2 - Nausea with vomiting, unspecified (2) Osteomyelitis Laterality: right Osteomyelitis location: foot Osteomyelitis type: uns pecified type Qualified Code(s): M86.9 - Osteomyelitis, unspecified
[2021-12-09] MEDS: DAPTOmycin 500 MG in SYRINGE 0 ML IV SCH (15:19)
[2021-12-09] MEDS: ADVANCED PROBIOTIC 1250 MG CAPSULE PO SCH (15:19)
[2021-12-09 15:35] LABS: C Reactive Protein < 0.50 mg/dl (0-0.5)
[2021-12-09] MEDS: rOPINIRole HCL 2 MG TABLET PO SCH (20:49)
[2021-12-09] MEDS: NORTRIPTYLINE HCL 25 MG CAP PO SCH (20:49)
[2021-12-09] MEDS: ZOLPIDEM TARTRATE 10 MG TAB PO PRN (20:49)
[2021-12-09] MEDS: INSULIN GLARGINE SOLOSTAR 100 UNITS/ML 3 ML PEN SQ SCH (21:38)
[2021-12-10] MEDS: HYDROmorphone INJ 1 MG/ML SYRINGE IV PRN ×8 (01:31→23:10)
[2021-12-10] MEDS: CLINDAMYCIN 600 MG in DEXTROSE 5% 50 ML IV SCH ×3 (05:34→21:02)
[2021-12-10] MEDS: LORazepam 1 MG TAB PO PRN (05:41)
[2021-12-10 05:57] LABS: Basophils # (auto) 0.04 K/uL (0-0.2); Basophils % (auto) 0.4 %; Eosinophils # (auto) 0.78 K/uL (0-0.5); Eosinophils % (auto) 7.4 %; Hematocrit (blood only) 35.2 % (37-47); Hemoglobin 11.3 g/dL (12.0-16.0); Immature Granulocytes # (auto) 0.03 K/uL (0.00-0.02); Immature Granulocytes % (auto) 0.3 %; Lymphocytes # (auto) 3.18 K/uL (1.2-3.4); Lymphocytes % (auto) 30.3 %; Mean Corpuscular Hemoglobin 24.7 pg (25-34); Mean Corpuscular Hgb Conc 32.1 g/dL (32-36); Mean Corpuscular Volume 76.9 fL (80-100); Mean Platelet Volume 9.9 fL (7.4-10.4); Monocytes # (auto) 1.08 K/uL (0.11-0.59); Monocytes % (auto) 10.3 %; Neutrophils # (auto) 5.39 K/uL (1.4-6.5); Neutrophils % (auto) 51.3 %; Platelet Count 330 K/uL (130-400); RDW Coefficient of Variation 14.8 % (11.5-14.5); RDW Standard Deviation 41.6 fL (36.4-46.3); Red Blood Count 4.58 M/uL (4.2-5.4)
[2021-12-10] MEDS: oxyCODONE/ACETAMINOPHEN 5mg/325mg TAB PO PRN ×3 (06:11→22:04)
[2021-12-10 06:26] LABS: BUN Creatinine Ratio 30.8 (10-20); Calcium 9.2 mg/dl (8.5-10.1); Creatinine Clr Calc Pharmacy 109.5 ml/min; Est GFR (African American) 122.9 ml/min; Est GFR (Non-African American) 106.1 ml/min; Potassium 4.3 mmol/L (3.5-5.1)
[2021-12-10] MEDS: LORATADINE 10 MG TAB PO SCH (09:18)
[2021-12-10] MEDS: ASPIRIN 81 MG ECTAB PO SCH ×2 (09:18→21:03)
[2021-12-10] MEDS: lisinopril 10 MG TAB PO SCH (09:18)
[2021-12-10] MEDS: METOPROLOL SUCC 50MG EXT REL TAB PO SCH (09:18)
[2021-12-10] MEDS: DOCUSATE SODIUM 100 MG CAP PO SCH ×2 (09:18→21:03)
[2021-12-10] MEDS: ENOXAPARIN INJ 40 MG/0.4 ML SYR SQ SCH (09:18)
[2021-12-10] MEDS: INSULIN ASPART PER UNIT SC SCH ×4 (09:19→20:59)
[2021-12-10] MEDS: ADVANCED PROBIOTIC 1250 MG CAPSULE PO SCH (09:19)
--- NOTE | 2021-12-10 10:16 | Orthopedic Progress Note ---
Date of Service December 10, 2021 Assessment & Plan (1) Diabetic foot infection: Plan: Will f/u on MRI right foot for further discussion of more surgery vs continuing IV abx. If no surgery needed she would like to go home tomorrow. Admission and Anticipated Discharge Date Admission Date: December 06, 2021 Subjective patient resting comfortably in bed. She notes some pain in the foot. She is inquiring about trying to get home. Physical Exam Physical Exam: dressing in place. toes mobile. calves soft Results & Data ([facility]) Vital Signs (Past 12 Hours) Vital Signs Temp Pulse Resp BP Pulse Ox 12/10/21 07:32 36.6 C 86 17 111/68 98
[2021-12-10] MEDS ORDERED: GADOBUTROL 10ML VIAL IV ONE (15:21)
[2021-12-10] MEDS: DAPTOmycin 500 MG in SYRINGE 0 ML IV SCH (15:47)
--- NOTE | 2021-12-10 18:12 | Magnetic Resonance Report ---
MR foot RT wo/w con, MR ankle RT wo/w con HISTORY: 56 years-old Female Assess for abscess and osteomyelitis chronic pain of the right foot and ankle COMPARISON: Right foot radiographs 12/06/2021, MRI right foot and ankle 11/24/2021, 11/05/2021, 2 TECHNIQUE: Multiplanar multisequence MRI of the right foot and ankle was obtained both with and witho ut the use of 7 cc Gadavist FINDINGS: FOOT: Postoperative changes of the forefoot are redemonstrated with partial amputation of the first and sec ond digits at the level of the metatarsal head neck junctions. Micrometallic artifact within this dis tribution limits the study. There is unchanged cortical thickening and irregularity with increased T1 and T2 marrow signal notably present involving the first metatarsal. There are no new sites of bony destruction or significant marrow edema identified. There is diffuse intramuscular and subcutaneous e rolan with associated enhancement, most pronounced in the plantar tissues. There is a peripherally enh ancing 2.1 x 0.7 x 1.4 cm collection within the deep soft tissues of the plantar midfoot, superficial to the navicular cuneiform articulation (image 4 of series 22 and image 17 of series 23). This appea rs to be new from the prior study and is at least partially intramuscular. No new ligamentous or tend on injury identified. 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 There is a peripherally enhanc ing "wound of the medial hindfoot and hindfoot midfoot junction measuring approximately 2.8 x 1.5 cm on image 20 of series 20. This is contiguous with the previously mentioned peripherally enhancing col lection as above. There is diffuse intramuscular and soft tissue edema with associated enhancement. T enosynovitis of the flexor digitorum longus. Mild diffuse nonspecific marrow edema throughout the hin dfoot, midfoot and medial malleolus. This is likely reactive. No osseous erosion identified. IMPRESSION: 1. Postoperative changes of the foot and ankle are redemonstrated with prior partial resection of the first and second digits. This has been documented on numerous prior MRI studies. There is unchanged cortical thickening involving the distal aspects of the first and second metatarsals at the amputatio n stumps with first metatarsal marrow changes again suggestive of osteomyelitis. No new sites of oste omyelitis are identified within the right foot or ankle. 2. Large open wound of the medial hindfoot and midfoot junction is redemonstrated. This is contiguous with a new peripherally enhancing volar midfoot abscess measuring over 2 cm. 3. Diffuse myositis with cellulitis. 4. Mild marrow edema throughout the midfoot, hindfoot and medial malleolus is likely reactive. ACT 112: Negative or not required by law. The above report was generated using voice recognition software. It may contain grammatical, syntax o r spelling errors. Electronically signed by: Puneet Howard M.D. 12/10/2021 6:10 PM
--- NOTE | 2021-12-10 20:29 | Hospitalist Progress Note ---
Date of Service December 10, 2021 Assessment & Plan (1) Diabetic foot infection: Plan: 11/26/21 -- RIGHT foot/ankle - Operative info: POSTOPERATIVE DIAGNOSES: 1. Right foot medial deep abscess. 2. Posterior tibial tendon septic tenosynovitis. 3. Septic tenosynovitis of the flexor digitorum longus tendon. 4. Posterior tibial tendon rupture. 5. Diabetic neuropathic ulcer of the medial ankle measuring 2.5 x 1.75 x 1.0 cm. PROCEDURE: 1. Right foot incision and drainage deep medial abscess. 2. Irrigation and debridement, posterior tibial tendon tear with resection of the posterior tibial tendon. 3. Tenosynovectomy of the posterior tibial tendon and flexor digitorum longus tendons. 4. Irrigation and debridement, medial ankle diabetic neuropathic ulcer measuring 2.5 x 1.75 x 1.0 cm including skin, subcutaneous tissue, fascia and tendon sheath. Telehealth ID consult during prior admission - daptomycin + PO flagyl advised. Some concern that flagyl was causing #2 at time of admission. Thus, flagyl changed to IV clindamycin. Tolerating latter abx. No diarrhea. Inflammatory markers all improved/stable yesterday. I checked uric acid level to ensure she has no gouty arthritis contributing to R foot/ankle pain -- uric acid wnl. Remains on IV daptomycin + IV clindamycin + probiotics. Unfortunately there is a 2cm abscess in the right medial mid-foot. This was seen on MRI today. Defer to Dr Montaño whether I/D is needed despite her overall clinical improvement of the foot over the last few days. I do believe the fluid collection is the main city bus driver of her ongoing foot pain. (2) Nausea & vomiting: Plan: Patient presented with nausea and vomiting - resolved. Suspected that this may have been from metronidazole. May have been gastroparesis related as well. Now on clindamycin and doing well without GI symptoms. (3) HTN (hypertension): Plan: Controlled. Continue lisinopril 10 mg p.o. every morning, metoprolol succinate 50 mg p.o. every morning, and hydralazine prn. (4) Diabetes mellitus type 2, uncontrolled: Plan: Hemoglobin A1c has been consistently above 10%. Controlled at this time with lantus + novolog SSI. (5) Foot pain, right: Plan: Cont dilaudid q3h prn. Consider NSAID (toradol) if refractory pain. See #1 above. (6) Wound dehiscence, surgical: Plan: Orthopedic consultation appreciated. Dr. Montaño saw today in consult. R foot/ankle MRI findings noted. Continue with antibiotics. Await further guidance from Dr Montaño but she may need I/D of abscess. (7) Osteomyelitis: Plan: 11/24/21 MRI right foot - "chronic stable osteomyelitis involving the first and second metatarsals". MRI today with similar 1st/2nd metatarsal findings in comparison to 11/24 MRI except for 2cm abscess. Continue clindamycin and daptomycin for now. await final recs from Dr Montaño. (8) DVT prophylaxis: Plan: Continue enoxaparin 40mg daily. Plan: needs PT assessment Admission and Anticipated Discharge Date Admission Date: December 06, 2021 Subjective no new issues foot pain is similar to yesterday, but is controlled w/ the IV dilaudid prn did have MRIs of R foot/ankle but reports pending by radiology eating well no N/V no diarrhea she is hoping the MRI is "good" so she can go home tomorrow Review of Systems Review of Systems: gen - no fevers cv - no chest pain pulm - no dyspnea GI - no pain Physical Exam Physical Exam: gen - NAD, awake, alert mouth - MMM, no thrush heart - RRR, s1 s2, no murmur lungs - CTA b/l abd - soft NT ND BS+ vascular - right foot 2+ DP and pos tib pulses, perfusion nl/cap refill <2sec musculo - R first/2nd toes absent; 3-5th toes wnl; able to passively/actively range the R ankle without difficulty again today; tender to palpation along medial mid-foot but no dorsal mid-foot pain - similar to yesterday; no gross abnormality of distal tib-fib; the mild pink erythema over medial aspect of the mid-foot is unchanged skin - 2 wounds, 1 is closed with intact sutures; 2nd is dehisced with mild fishmouth opening -- no change in appearance today Results & Data Results & Data ([facility]) Vital Signs (Past 12 Hours) Vital Signs Temp Pulse Resp BP Pulse Ox 12/10/21 16:02 36.9 C 80 16 156/73 H 97 Laboratory Results Laboratory Results - last 24 hr 12/09/21 12/10/2112/10/22 20:49 05:20 05:20 WBC 10.50 RBC 4.58 Hgb 11.3 L Hct 35.2 L MCV 76.9 L MCH 24.7 L MCHC 32.1 RDW Std Deviation 41.6 RDW Coeff of Maria Del Carmen 14.8 H Plt Count 330 MPV 9.9 Immature Gran % (Auto) 0.3 Neut % (Auto) 51.3 Lymph % (Auto) 30.3 Iron % (Auto) 10.3 Eos % (Auto) 7.4 Baso % (Auto) 0.4 Neut # (Auto) 5.39 Lymph # (Auto) 3.18 Iron # (Auto) 1.08 H Eos # (Auto) 0.78 H Baso # (Auto) 0.04 Immature Gran # (Auto) 0.03 H Sodium 136 Potassium 4.3 Chloride 100 Carbon Dioxide 29 Anion Gap 7 BUN 16 Creatinine 0.52 L Est Cr Clr Drug Dosing 109.5 Est GFR ( Amer) 122.9 Est GFR (Non-Af Amer) 106.1 BUN/Creatinine Ratio 30.8 H Glucose 174 H POC Glucose 148 H Calcium 9.2 12/10/21 12/10/21 12/10/21 08:10 12:08 17:06 WBC RBC Hgb Hct MCV MCH MCHC RDW Std Deviation RDW Coeff of Maria Del Carmen Plt Count MPV Immature Gran % (Auto) Neut % (Auto) Lymph % (Auto) Iron % (Auto) Eos % (Auto) Baso % (Auto) Neut # (Auto) Lymph # (Auto) Iron # (Auto) Eos # (Auto) Baso # (Auto) Immature Gran # (Auto) Sodium Potassium Chloride Carbon Dioxide Anion Gap BUN Creatinine Est Cr Clr Drug Dosing Est GFR ( Amer) Est GFR (Non-Af Amer) BUN/Creatinine Ratio Glucose POC Glucose 168 H 172 H 153 H Calcium Diagnostic Findings Ankle MRI 12/10/21 00:00 MR foot RT wo/w con, MR ankle RT wo/w con HISTORY: 56 years-old Female Assess for abscess and osteomyelitis chronic pain of the right foot and ankle COMPARISON: Right foot radiographs 12/06/2021, MRI right foot and ankle 11/24/2021, 11/05/2021, 09/26/2021 TECHNIQUE: Multiplanar multisequence MRI of the right foot and ankle was obtained both with and without the use of 7 cc Gadavist FINDINGS: FOOT: Postoperative changes of the forefoot are redemonstrated with partial amputation of the first and second digits at the level of the metatarsal head neck junctions. Micrometallic artifact within this distribution limits the study. There is unchanged cortical thickening and irregularity with increased T1 and T2 marrow signal notably present involving the first metatarsal. There are no new sites of bony destruction or significant marrow edema identified. There is diffuse intramuscular and subcutaneous edema with associated enhancement, most pronounced in the plantar tissues. There is a peripherally enhancing 2.1 x 0.7 x 1.4 cm collection within the deep soft tissues of the plantar midfoot, superficial to the navicular cuneiform articulation (image 4 of series 22 and image 17 of series 23). This appears to be new from the prior study and is at least partially intramuscular. No new ligamentous or tendon injury identified. 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 There is a peripherally enhancing "wound of the medial hindfoot and hindfoot midfoot junction measuring approximately 2.8 x 1.5 cm on image 20 of series 20. This is contiguous with the previously mentioned peripherally enhancing collection as above. There is diffuse intramuscular and soft tissue edema with associated enhancement. Tenosynovitis of the flexor digitorum longus. Mild diffuse nonspecific marrow edema throughout the hindfoot, midfoot and medial malleolus. This is likely reactive. No osseous erosion identified. IMPRESSION: 1. Postoperative changes of the foot and ankle are redemonstrated with prior partial resection of the first and second digits. This has been documented on numerous prior MRI studies. There is unchanged cortical thickening involving the distal aspects of the first and second metatarsals at the amputation stumps with first metatarsal marrow changes again suggestive of osteomyelitis. No new sites of osteomyelitis are identified within the right foot or ankle. 2. Large open wound of the medial hindfoot and midfoot junction is redemonstrated. This is contiguous with a new peripherally enhancing volar midfoot abscess measuring over 2 cm. 3. Diffuse myositis with cellulitis. 4. Mild marrow edema throughout the midfoot, hindfoot and medial malleolus is likely reactive. ACT 112: Negative or not required by law. The above report was generated using voice recognition software. It may contain grammatical, syntax or spelling errors. Electronically signed by: Puneet Howard M.D. 12/10/2021 6:10 PM Foot MRI 12/10/21 00:00 MR foot RT wo/w con, MR ankle RT wo/w con HISTORY: 56 years-old Female Assess for abscess and osteomyelitis chronic pain of the right foot and ankle COMPARISON: Right foot radiographs 12/06/2021, MRI right foot and ankle 11/24/2021, 11/05/2021, 09/26/2021 TECHNIQUE: Multiplanar multisequence MRI of the right foot and ankle was obtained both with and without the use of 7 cc Gadavist FINDINGS: FOOT: Postoperative changes of the forefoot are redemonstrated with partial amputation of the first and second digits at the level of the metatarsal head neck junctions. Micrometallic artifact within this distribution limits the study. There is unchanged cortical thickening and irregularity with increased T1 and T2 marrow signal notably present involving the first metatarsal. There are no new sites of bony destruction or significant marrow edema identified. There is diffuse intramuscular and subcutaneous edema with associated enhancement, most pronounced in the plantar tissues. There is a peripherally enhancing 2.1 x 0.7 x 1.4 cm collection within the deep soft tissues of the plantar midfoot, superficial to the navicular cuneiform articulation (image 4 of series 22 and image 17 of series 23). This appears to be new from the prior study and is at least partially intramuscular. No new ligamentous or tendon injury identified. 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 There is a peripherally enhancing "wound of the medial hindfoot and hindfoot midfoot junction measuring approximately 2.8 x 1.5 cm on image 20 of series 20. This is contiguous with the previously mentioned peripherally enhancing collection as above. There is diffuse intramuscular and soft tissue edema with associated enhancement. Tenosynovitis of the flexor digitorum longus. Mild diffuse nonspecific marrow edema throughout the hindfoot, midfoot and medial malleolus. This is likely reactive. No osseous erosion identified. IMPRESSION: 1. Postoperative changes of the foot and ankle are redemonstrated with prior partial resection of the first and second digits. This has been documented on numerous prior MRI studies. There is unchanged cortical thickening involving the distal aspects of the first and second metatarsals at the amputation stumps with first metatarsal marrow changes again suggestive of osteomyelitis. No new sites of osteomyelitis are identified within the right foot or ankle. 2. Large open wound of the medial hindfoot and midfoot junction is redemonstrated. This is contiguous with a new peripherally enhancing volar midfoot abscess measuring over 2 cm. 3. Diffuse myositis with cellulitis. 4. Mild marrow edema throughout the midfoot, hindfoot and medial malleolus is likely reactive. ACT 112: Negative or not required by law. The above report was generated using voice recognition software. It may contain grammatical, syntax or spelling errors. Electronically signed by: Puneet Howard M.D. 12/10/2021 6:10 PM PG Care Time/CCT Total # of Minutes Spent Total Time Spent with Patient: Total time spent is greater than 50% in coordination of care (as documented) at patient's floor/unit and/or counseling patient: Coding Level of Care Code 01812 Subseq Hosp Care Lvl 2 Diagnoses Diabetic foot infection E11.628; L08.9 Nausea & vomiting R11.2 Vomiting type: unspecified HTN (hypertension) I10 Diabetes mellitus type 2, uncontrolled E11.65 Foot pain, right M79.671 Wound dehiscence, surgical T81.31XA Osteomyelitis M86.9 Laterality: right Osteomyelitis location: foot Osteomyelitis type: unspecified type DVT prophylaxis Z29.9 (1) Nausea & vomiting Vomiting type: unspecified Qualified Code(s): R11.2 - Nausea with vomiting, unspecified (2) Osteomyelitis Laterality: right Osteomyelitis location: foot Osteomyelitis type: unspecified type Qualified Code(s): M86.9 - Osteomyelitis, unspecified
[2021-12-10] MEDS: INSULIN GLARGINE SOLOSTAR 100 UNITS/ML 3 ML PEN SQ SCH (20:59)
[2021-12-10] MEDS: NORTRIPTYLINE HCL 25 MG CAP PO SCH (21:03)
[2021-12-10] MEDS: ZOLPIDEM TARTRATE 10 MG TAB PO PRN (21:03)
[2021-12-10] MEDS: rOPINIRole HCL 2 MG TABLET PO SCH (21:03)
[2021-12-11] MEDS: LORazepam 1 MG TAB PO PRN (00:02)
[2021-12-11] MEDS ORDERED: HYDROmorphone INJ 0.5 MG/0.5 ML SYR IV STA (01:26)
[2021-12-11] MEDS ORDERED: ACETAMINOPHEN 1000 MG/100 ML IV IV ONE (01:26)
[2021-12-11] MEDS: HYDROmorphone INJ 1 MG/ML SYRINGE IV PRN ×4 (04:01→17:27)
[2021-12-11] MEDS: CLINDAMYCIN 600 MG in DEXTROSE 5% 50 ML IV SCH ×3 (05:25→21:55)
[2021-12-11] MEDS: CYCLOBENZAPRINE HCL 10 MG TAB PO PRN (05:25)
[2021-12-11] MEDS ORDERED: Nursing to Pharmacy Communication SCH ×2 (05:30→17:00)
[2021-12-11] MEDS: oxyCODONE/ACETAMINOPHEN 5mg/325mg TAB PO PRN ×2 (05:34→14:59)
[2021-12-11] MEDS: INSULIN ASPART PER UNIT SC SCH ×4 (06:21→21:00)
[2021-12-11] MEDS: ASPIRIN 81 MG ECTAB PO SCH ×2 (08:19→21:12)
[2021-12-11] MEDS: lisinopril 10 MG TAB PO SCH (08:19)
[2021-12-11] MEDS: METOPROLOL SUCC 50MG EXT REL TAB PO SCH (08:19)
[2021-12-11] MEDS: LORATADINE 10 MG TAB PO SCH (08:19)
[2021-12-11] MEDS: ENOXAPARIN INJ 40 MG/0.4 ML SYR SQ SCH (08:20)
[2021-12-11] MEDS: DOCUSATE SODIUM 100 MG CAP PO SCH ×2 (08:20→21:13)
[2021-12-11] MEDS: ADVANCED PROBIOTIC 1250 MG CAPSULE PO SCH (08:20)
[2021-12-11] MEDS ORDERED: oxyCODONE HCL IR 5 MG TAB (IMMEDIATE RELEASE) PO STA (08:33)
[2021-12-11] MEDS ORDERED: ONDANSETRON INJ 2 MG/ML 2 ML VIAL ONE ×2 (09:28→11:24)
[2021-12-11] MEDS ORDERED: PROPOFOL IV EMULSION 10 MG/ML 20 ML VIAL IV ONE ×2 (09:28→11:24)
[2021-12-11] MEDS ORDERED: LIDOCAINE 2% 2 ML VIAL/AMP(20MG/ML) INFIL ONE ×2 (09:28→11:24)
[2021-12-11] MEDS ORDERED: fentaNYL citrate 100 MCG/2 ML VIAL ONE ×2 (09:28→12:41)
[2021-12-11] MEDS ORDERED: MIDAZOLAM HCL 1 MG/ML 2ML VIAL ONE (09:28)
--- NOTE | 2021-12-11 10:45 | History & Physical Bridge Note ---
Date of Service December 11, 2021 History & Physical Bridge Note I have examined the patient, reviewed the History & Physical and in the interval since the performance of the History & Physical I have noted the following changes of clinical significance:Will require incision and drainage right foot with procedures as necessary today.
[2021-12-11] MEDS ORDERED: BUPIVACAINE 0.5 % 5 MG/1 ML MPF 30ML VIAL ONE (11:30)
[2021-12-11] MEDS ORDERED: EPINEPHrine INJ 1 MG/ML AMP ONE (11:30)
[2021-12-11] MEDS ORDERED: ceFAZolin 330 MG/ML 1 GM VIAL ONE (11:53)
[2021-12-11] MEDS ORDERED: ePHEDrine sulfate 50 MG/ML SYR ONE (12:07)
--- NOTE | 2021-12-11 12:26 | Post Operative Brief Note ---
Immediate Post Op Note v1 Date of Surgery December 11, 2021 Pre & Post Diagnosis Operation Date: 12/11/21 14:00 Pre-Op Diagnosis: Right deep abscess medial foot, flexor digitorum longus tendon septic tenosynovitis, medial foot wound dehiscence 2.5 x 1.0 x 0.9 cm, diabetic neuropathy. Post-Op Diagnosis: Right deep abscess medial foot, flexor digitorum longus tendon septic tenosynovitis, medial foot wound dehiscence 2.5 x 1.0 x 0.9 cm, diabetic neuropathy. I identified the patient and participated in the time-out.: Yes Procedure Operation Date: 12/11/21 14:00 Actual Procedures p Incision and Drainage Right foot deep medial abscess, tenosynovectomy septic flexor digitorum longus tendon, irrigation debridement medial foot wound dehiscence 2.5 x 1.0 x 0.9 cm including skin, subcutaneous tissue, dermis, fascia and periosteum. (Right) - Akhil Montaño DO Surgeon Akhil Montaño DO Trousseau Consultant Maribell Maki PA-C Estimated Blood Loss 2 Findings Consistent with Post-Op Diagnosis Specimens Aerobic, anaerobic, Gram stain medial foot deep abscess Septic tenosynovium flexor digitorum longus tendon and surrounding tissue Drains Other (1/2 inch iodoform gauze 3 separate sites) Anesthesia Type General Regional Complications none Disposition Accompanied Patient To Recovery: No
[2021-12-11] MEDS ORDERED: NALOXONE HCL 0.4 MG/1 ML VIAL/CARP IV PRN ×2 (12:36→17:48)
[2021-12-11] MEDS ORDERED: bisacodyL 10 MG SUPP PR PRN (12:36)
[2021-12-11] MEDS ORDERED: MAGNESIUM HYDROXIDE SUSP 30 ML UDC PO PRN (12:36)
[2021-12-11] MEDS ORDERED: METOCLOPRAMIDE HCL INJ 5 MG/ML 2 ML VIAL IV PRN (12:36)
[2021-12-11] MEDS ORDERED: HYDROmorphone INJ 2 MG/ML SYR/VIAL IV PRN (12:37)
[2021-12-11] MEDS ORDERED: ATROPINE SULFATE 0.1 MG/ML 10ML SYR IV PRN (12:37)
[2021-12-11] MEDS ORDERED: ONDANSETRON INJ 2 MG/ML 2 ML VIAL IV PRN (12:37)
[2021-12-11] MEDS ORDERED: ePHEDrine sulfate 50 MG/ML AMP IV PRN (12:37)
[2021-12-11] MEDS: fentaNYL citrate 100 MCG/2 ML VIAL IV PRN ×4 (12:41→13:06)
--- NOTE | 2021-12-11 13:28 | Anesthesiology Progress Note ---
Date of Service December 11, 2021 Anesthesia Post Procedure Vital Signs Vital Signs: Temp Pulse Pulse Resp BP Pulse Ox 12/11/21 13:05 36.3 C L 78 12 136/69 99 12/11/21 12:55 80 17 137/82 99 12/11/21 12:45 83 19 141/71 H 100 12/11/21 12:35 79 16 136/86 100 12/11/21 12:29 36.0 C L 76 12 111/60 99 12/11/21 07:24 37.0 C 82 16 134/77 97 12/10/21 22:49 36.5 C 81 18 135/76 98 12/10/21 16:02 36.9 C 80 16 156/73 H 97 Pain Intensity Right Foot: Pain Intensity: 8 Transfer of Care Handoff Completed per policy Notes Mental Status: alert / awake / arousable and participated in evaluation Patient Amnestic to Procedure: Yes Nausea / Vomiting: adequately controlled Pain: adequately controlled Airway Patency, RR, SpO2: stable & adequate BP & HR: stable & adequate Hydration State: stable & adequate Anesthetic Complications: no major complications apparent and Pt Satisfied with anesthetic care
[2021-12-11] MEDS ORDERED: DAPTOmycin 500 MG VIAL IV SCH (13:46)
[2021-12-11] MEDS ORDERED: metroNIDAZOLE 500 MG TAB PO SCH (14:00)
[2021-12-11] MEDS: SODIUM CHLORIDE 0.9% 1000ML 1,000 ML IV SCH ×2 (14:01→18:19)
[2021-12-11] MEDS: DAPTOmycin 500 MG in SYRINGE 0 ML IV SCH (16:41)
[2021-12-11] MEDS ORDERED: INSULIN ASPART PER UNIT ONE (17:54)
[2021-12-11] MEDS: HYDROmorphone PCA 30 MG/30 ML IV PRN ×2 (18:05→21:25)
--- NOTE | 2021-12-11 20:42 | Operative Report (OR) ---
DATE OF PROCEDURE: 12/11/2021 PREOPERATIVE DIAGNOSES: 1. Right foot deep medial abscess. 2. Flexor digitorum longus tendon septic tenosynovitis. 3. Medial foot wound dehiscence, 2.5 x 1.0 x 0.9 cm. 4. Diabetic neuropathy. POSTOPERATIVE DIAGNOSES: 1. Right foot deep medial abscess. 2. Flexor digitorum longus tendon septic tenosynovitis. 3. Medial foot wound dehiscence, 2.5 x 1.0 x 0.9 cm. 4. Diabetic neuropathy. PROCEDURE: [id number] 1. Right foot incision and drainage deep and medial abscess. 2. Tenosynovectomy of septic flexor digitorum longus tendon. 3. Irrigation and debridement, medial foot wound dehiscence measuring 2.5 x 1.0 x 0.9 cm including s kin, subcutaneous tissue, dermis, fascia and periosteum. SURGEON: Akhil Montaño DO. STOCK MOVER: Maribell Maki PA-C who was present for patient positioning, sterile prep and drape, management of retractors and instruments. He was present through the critical portions of the case i ncluding wound closure, application of sterile dressing and transport of the patient to recovery. ANESTHESIA: General, regional. SPECIMENS: 1. Aerobic, anaerobic, Gram stain -- deep medial foot abscess. 2. Septic tenosynovium from the flexor digitorum longus and surrounding tissue. DRAINS: 1/2 inch iodoform gauze drains x3, separate sites. COMPLICATIONS: None. BLOOD LOSS: 2 mL. PERTINENT HISTORY: This is a 56-year-old female who has had multiple recurrent infections of the rig ht foot beginning with osteomyelitis of the great toe, second toe and then septic tenosynovitis of th e posterior tibial tendon and then the flexor digitorum longus tendon. She was most recently diagnos ed with an abscess in the medial foot, deep soft tissue. She failed conservative management includin g IV antibiotics and PICC line, and she was then scheduled for surgery as indicated. All potential risks, benefits, complications, alternatives, rehab potential for incomplete relief of symptoms, need for further surgery, DVT, PE, , persistent pain, swelling, scarring, weakness, ne urovascular injury, wound complications, need for further surgery or amputation was discussed with e patient. The patient decided to proceed with the procedure as indicated. DESCRIPTION OF PROCEDURE: The patient was taken to the operative suite and placed supine on the oper ating room table. After review of the consent and identification of proper site, the patient was ane sthetized, LMA was placed. Tourniquet was placed high on the right thigh over cast padding. Right l ower extremity was then sterilely prepped and draped in usual fashion, elevated and partially exsangu inated with an Esmarch bandage, proximal to the medial malleolus extending proximally and the Esmarch bandage was applied over sterile surgical towel. Next, after surgical timeout was performed, sutures were removed from prior irrigation and debridemen t. The area of wound dehiscence measuring 2.5 x 1.0 x 0.9 cm was then addressed with sharp dissectio n around the periwound slough and the area of direct dehiscence. This was sharply debrided with a 15 blade scalpel including skin, dermis, subcutaneous tissue, fascia and down to the level of periosteu m. The flexor digitorum longus tendon was then identified and the incision was enlarged proximally a nd distally from all the way to the mid first metatarsal extending proximally to proximal to the medi al malleolus. Careful dissection was performed with scissors and forceps opening the previously undisrupted tissue and also extending into the area of previous dehiscence. A curette and rongeur were used to clear an y necrotic tissue in the tissue edge margin back to a bleeding healthy tissue. The flexor digitorum longus tendon was then placed on traction to visualize it and hypertrophic septic tenosynovium was th en resected from around the flexor digitorum longus tendon and then sent for specimen including some surrounding tissue. Next, the medial midfoot incision was then deepened with scissor dissection down to the level just de ep to the abductor hallucis musculature, which appeared to be viable. Next, the next layer was then entered adjacent to the navicular and the deep compartment of the foot, noted to be abscess fluid, wh ich was then harvested with a specimen container for aerobic, anaerobic, Gram stain analysis. This w as sent to the laboratory. There was noted to be an area of phlegmon at the site noted for abscess formation at the medial deep foot. This was debrided with a rongeur and then the insertion site of the posterior tibial tendon wa s also then rongeured with any residual Sharpey's fibers from the previously resected posterior tibia l tendon was also then debrided with a rongeur. Once all necrotic tissue was sharply excised and marybeth rided, a curette was then used to roughen the tissues to encourage bleeding, then the pulsatile lavag e was then used to lavage the entire open incision with 3 liters with Ancef until clear. Next, top gloves and top sheet were changed and then the medial incision was closed in a loosely appr oximated fashion using 2-0 nylon sutures after placing the 3 separate iodoform 1/2 inch gauze drains, 1 proximal, 1 distal and 1 central. Once loosely approximated, a sterile compressive dressing was a pplied after injection for regional anesthesia with 0.5% Marcaine 30 mL total in an ankle block and m edial foot regional block fashion. Next, the Xeroform gauze, sterile 4 x 4s, ABD pad, cast padding, and an Mikey wrap was applied. The tourniquet was released. The patient was awakened and taken to rec overy in stable condition. Job ID: [id number]
--- NOTE | 2021-12-11 20:50 | Hospitalist Progress Note ---
Date of Service December 11, 2021 Assessment & Plan (1) Diabetic foot infection: Plan: 11/26/21 -- RIGHT foot/ankle - Operative info: POSTOPERATIVE DIAGNOSES: 1. Right foot medial deep abscess. 2. Posterior tibial tendon septic tenosynovitis. 3. Septic tenosynovitis of the flexor digitorum longus tendon. 4. Posterior tibial tendon rupture. 5. Diabetic neuropathic ulcer of the medial ankle measuring 2.5 x 1.75 x 1.0 cm. PROCEDURE: 1. Right foot incision and drainage deep medial abscess. 2. Irrigation and debridement, posterior tibial tendon tear with resection of the posterior tibial tendon. 3. Tenosynovectomy of the posterior tibial tendon and flexor digitorum longus tendons. 4. Irrigation and debridement, medial ankle diabetic neuropathic ulcer measuring 2.5 x 1.75 x 1.0 cm including skin, subcutaneous tissue, fascia and tendon sheath. Telehealth ID consult during prior admission - daptomycin + PO flagyl advised. Some concern that flagyl was causing #2 at time of admission. Thus, flagyl changed to IV clindamycin. Tolerating latter abx. No diarrhea. Inflammatory markers all improved/stable during this stay but unfortunately MRI overnight show 2cm abscess in the medial aspect of the foot. s/p I/D in the OR today by Dr Montaño; intra-op cultures pending. Also had septic tenosynovitis - see op note. Remains on IV daptomycin + IV clindamycin + probiotics. For pain control - hold percocet, hold prn IV dilaudid - change to Dilaudid RO[employer]IVER - 0.1mg demand, lock-out q15min, no basal - starting parameters. (2) Nausea & vomiting: Plan: Patient presented with nausea and vomiting - resolved. Suspected that this may have been from metronidazole. May have been gastroparesis related as well. Now on clindamycin and doing well without GI symptoms. (3) HTN (hypertension): Plan: Controlled. Continue lisinopril 10 mg p.o. every morning, metoprolol succinate 50 mg p.o. every morning, and hydralazine prn. (4) Diabetes mellitus type 2, uncontrolled: Plan: Hemoglobin A1c has been consistently above 10%. Controlled at this time with lantus + novolog SSI however. (5) Foot pain, right: Plan: see #1 above (6) Wound dehiscence, surgical: Plan: Orthopedic consultation appreciated. Dr Montaño took her to OR today for I/D 2cm abscess. appreciate his assistance. (7) Osteomyelitis: Plan: 11/24/21 MRI right foot - "chronic stable osteomyelitis involving the first and second metatarsals". MRI today with similar 1st/2nd metatarsal findings in comparison to 11/24 MRI except for 2cm abscess. Continue clindamycin and daptomycin for now. Await intraop cultures from today. (8) DVT prophylaxis: Plan: Continue enoxaparin 40mg daily. Admission and Anticipated Discharge Date Admission Date: December 06, 2021 Subjective saw patient post-op from her I/D sobbing very badly due to right foot pain we discussed starting RO[employer]IVER dilaudid - she had such earlier in her stay and it worked well for pain no dyspnea or chest pain post-op Review of Systems Review of Systems: gen - no fevers or chills CV - no orthopnea GI - no diarrhea still Physical Exam Physical Exam: gen - sobbing due to pain; awake, alert mouth - MMM, no thrush heart - RRR, s1 s2, no murmur lungs - CTA b/l abd - soft NT ND BS+ vascular - right foot 2+ DP and pos tib pulses, perfusion nl/cap refill <2sec musculo - R first/2nd toes absent; rest of R foot wrapped in copious dressings from her surgery; no bleeding through the dressings psych - despondent, crying Results & Data Results & Data ([facility]) Vital Signs (Past 12 Hours) Vital Signs Temp Pulse Pulse Resp BP Pulse Ox 12/11/21 20:00 36.8 C 82 18 190/80 H 100 12/11/21 19:59 36.7 C 80 16 182/94 H 98 12/11/21 18:58 36.6 C 78 16 175/75 H 97 12/11/21 18:02 36.7 C 80 18 153/76 H 98 12/11/21 16:39 36.6 C 77 18 154/76 H 98 12/11/21 15:40 36.5 C 80 18 137/76 98 12/11/21 14:45 37.0 C 84 18 163/80 H 100 12/11/21 14:15 36.3 C L 85 18 163/75 H 96 12/11/21 13:45 36.4 C L 78 16 128/74 99 12/11/21 13:25 74 18 124/68 98 12/11/21 13:15 77 14 137/67 98 12/11/21 13:05 36.3 C L 78 12 136/69 99 12/11/21 12:55 80 17 137/82 99 12/11/21 12:45 83 19 141/71 H 100 12/11/21 12:35 79 16 136/86 100 12/11/21 12:29 36.0 C L 76 12 111/60 99 Laboratory Results Laboratory Results - last 24 hr 12/11/21 12/11/21 12/11/21 06:00 12:33 13:52 POC Glucose 179 H 149 H 151 H 12/11/21 16:46 POC Glucose 186 H PG Care Time/CCT Total # of Minutes Spent Total Time Spent with Patient: Total time spent is greater than 50% in coordination of care (as documented) at patient's floor/unit and/or counseling patient: Coding Level of Care Code 79070 Subseq Hosp Care Lvl 2 Diagnoses Diabetic foot infection E11.628; L08.9 Nausea & vomiting R11.2 Vomiting type: unspecified HTN (hypertension) I10 Diabetes mellitus type 2, uncontrolled E11.65 Foot pain, right M79.671 Wound dehiscence, surgical T81.31XA Osteomyelitis M86.9 Laterality: right Osteomyelitis location: foot Osteomyelitis type: unspecified type DVT prophylaxis Z29.9 (1) Nausea & vomiting Vomiting type: unspecified Qualified Code(s): R11.2 - Nausea with vomiting, unspecified (2) Osteomyelitis Laterality: right Osteomyelitis location: foot Osteomyelitis type: unspecified type Qualified Code(s): M86.9 - Osteomyelitis, unspecified
[2021-12-11] MEDS: INSULIN GLARGINE SOLOSTAR 100 UNITS/ML 3 ML PEN SQ SCH (21:01)
[2021-12-11] MEDS: hydrALAZINE HCL 20 MG/ML VIAL IV PRN (21:04)
[2021-12-11] MEDS: ZOLPIDEM TARTRATE 10 MG TAB PO PRN (21:04)
[2021-12-11] MEDS: SENNA 8.6 MG TAB PO SCH (21:10)
[2021-12-11] MEDS: NORTRIPTYLINE HCL 25 MG CAP PO SCH (21:11)
[2021-12-11] MEDS: rOPINIRole HCL 2 MG TABLET PO SCH (21:12)
[2021-12-12] MEDS: SODIUM CHLORIDE 0.9% 1000ML 1,000 ML IV SCH ×2 (00:32→19:00)
[2021-12-12] MEDS: ONDANSETRON INJ 2 MG/ML 2 ML VIAL IV PRN ×2 (00:38→08:57)
[2021-12-12] MEDS: CLINDAMYCIN 600 MG in DEXTROSE 5% 50 ML IV SCH ×3 (06:08→21:22)
[2021-12-12] MEDS ORDERED: SODIUM CHLORIDE 0.9% 1000ML 1,000 ML IV SCH ×2 (06:30→23:15)
[2021-12-12 06:31] LABS: Hematocrit (blood only) 33.9 % (37-47); Hemoglobin 10.8 g/dL (12.0-16.0); Mean Corpuscular Hemoglobin 24.3 pg (25-34); Mean Corpuscular Hgb Conc 31.9 g/dL (32-36); Mean Corpuscular Volume 76.4 fL (80-100); Platelet Count 360 K/uL (130-400); RDW Coefficient of Variation 15.2 % (11.5-14.5); RDW Standard Deviation 42.8 fL (36.4-46.3); Red Blood Count 4.44 M/uL (4.2-5.4); White Blood Count 19.38 K/uL (4.8-10.8)
[2021-12-12 06:48] LABS: BUN Creatinine Ratio 19.6 (10-20); Calcium 8.8 mg/dl (8.5-10.1); Creatinine Clr Calc Pharmacy 123.8 ml/min; Est GFR (Non-African American) 110.4 ml/min
[2021-12-12] MEDS: DOCUSATE SODIUM 100 MG CAP PO SCH ×2 (08:21→21:10)
[2021-12-12] MEDS: ADVANCED PROBIOTIC 1250 MG CAPSULE PO SCH (08:22)
[2021-12-12] MEDS: METOPROLOL SUCC 50MG EXT REL TAB PO SCH (08:23)
[2021-12-12] MEDS: LORATADINE 10 MG TAB PO SCH (08:23)
[2021-12-12] MEDS: lisinopril 10 MG TAB PO SCH (08:24)
[2021-12-12] MEDS: ASPIRIN 81 MG ECTAB PO SCH ×2 (08:25→21:10)
[2021-12-12] MEDS: MULTIVITAMIN TAB PO SCH (08:25)
[2021-12-12] MEDS: ENOXAPARIN INJ 40 MG/0.4 ML SYR SQ SCH (08:25)
[2021-12-12] MEDS: INSULIN ASPART PER UNIT SC SCH ×4 (08:52→21:17)
[2021-12-12] MEDS: DAPTOmycin 500 MG in SYRINGE 0 ML IV SCH (15:05)
--- NOTE | 2021-12-12 18:35 | Orthopedic Progress Note ---
Date of Service December 12, 2021 Assessment & Plan (1) Diabetic foot infection: Plan: POD #1 s/p 1. Right foot incision and drainage deep and medial abscess. 2. Tenosynovectomy of septic flexor digitorum longus tendon. 3. Irrigation and debridement, medial foot wound dehiscence measuring 2.5 x 1.0 x 0.9 cm including skin, subcutaneous tissue, dermis, fascia and periosteum Dressing change today. The most proximal aspect of the incision had the entire packing removed. The 2 other sites had approximately 5 inches of packing removed and the rest kept in place. Continue nonweightbearing on right lower extremity. Continue antibiotic treatment. Discharge planninguncertain at this time. Admission and Anticipated Discharge Date Admission Date: December 06, 2021 Subjective States he is in pain at the medial aspect of the right hindfoot. She is remained nonweightbearing on the right lower extremity. No new complaints today. Physical Exam Constitutional: WD/WN, vitals as above no acute distress Neck: trachea midline Musculoskeletal: Right foot: Well approximated medial foot incision. No open areas noted today. Minimal bloody drainage during the dressing change. Mode rate amount of blood on the dressing. Maceration around the previous nonhealing ulcers site. No erythema noted. Psychiatric: A+Ox3, euthymic affect Speech: normal rate/rhythm/volume of speech Results & Data ([facility]) Vital Signs (Past 12 Hours) Vital Signs Temp Pulse Resp BP Pulse Ox 12/12/21 17:00 36.9 C 88 18 136/69 98 12/12/21 14:26 37.1 C 86 17 88/51 L 95 12/12/21 10:56 37.3 C 92 H 17 121/72 98
[2021-12-12] MEDS: HYDROmorphone PCA 30 MG/30 ML IV PRN (20:26)
[2021-12-12] MEDS: SENNA 8.6 MG TAB PO SCH (21:10)
[2021-12-12] MEDS: NORTRIPTYLINE HCL 25 MG CAP PO SCH (21:10)
[2021-12-12] MEDS: rOPINIRole HCL 2 MG TABLET PO SCH (21:10)
[2021-12-12] MEDS: INSULIN GLARGINE SOLOSTAR 100 UNITS/ML 3 ML PEN SQ SCH (21:17)
[2021-12-12] MEDS: ZOLPIDEM TARTRATE 10 MG TAB PO PRN (21:21)
--- NOTE | 2021-12-13 00:16 | Hospitalist Progress Note ---
Date of Service December 13, 2021 Assessment & Plan (1) Abscess of right foot: Plan: POD #1 s/p - 1. Right foot incision and drainage deep and medial abscess 2. Tenosynovectomy of septic flexor digitorum longus tendon 3. Irrigation and debridement, medial foot wound dehiscence performed by Dr Montaño intra-op cultures thus far negative continue IV daptomycin continue IV clindamycin (being used in jourdan of flagyl) pain control with [employer] dilaudid change demand dosing interval from q20min to q15min leave demand dose at 0.2mg no basal (2) Diabetic foot infection: Plan: 11/26/21 -- RIGHT foot/ankle - Operative info: POSTOPERATIVE DIAGNOSES: 1. Right foot medial deep abscess. 2. Posterior tibial tendon septic tenosynovitis. 3. Septic tenosynovitis of the flexor digitorum longus tendon. 4. Posterior tibial tendon rupture. 5. Diabetic neuropathic ulcer of the medial ankle measuring 2.5 x 1.75 x 1.0 cm. PROCEDURE: 1. Right foot incision and drainage deep medial abscess. 2. Irrigation and debridement, posterior tibial tendon tear with resection of the posterior tibial tendon. 3. Tenosynovectomy of the posterior tibial tendon and flexor digitorum longus tendons. 4. Irrigation and debridement, medial ankle diabetic neuropathic ulcer measuring 2.5 x 1.75 x 1.0 cm including skin, subcutaneous tissue, fascia and tendon sheath. repeat foot surgery yesterday as in #1 above for 2cm abscess Telehealth ID consult during prior admission - daptomycin + PO flagyl advised. Some concern that flagyl was causing #3 at time of admission. Thus, flagyl changed to IV clindamycin. Tolerating latter abx. No diarrhea. No N/V. Inflammatory markers all improved/stable during this stay but unfortunately she continued with severe foot pain. MRI with abscess. To OR yesterday for I/D of that abscess as well as Rx of septic tendon (see #1 above). Remains on IV daptomycin + IV clindamycin + probiotics. Per ID consult note from previous admission earlier in November her stop date for IV daptomycin is ~6/1/22. PICC line inadvertantly removed this am from left arm. Patient is very hard stick/access. However, able to place a peripheral IV this am. Depending on cultures from yesterday may need to re-consult ID from [facility] for antibiotic selection and if the 01/11/22 stop date is still advised. Regardless will need an u/s-guided IV or new PICC in the next couple of days. (3) Nausea & vomiting: Plan: Patient presented to [facility] with nausea and vomiting - resolved. Suspected that this may have been from metronidazole. May have been gastroparesis related as well. Now on clindamycin and doing well without GI intolerance. (4) HTN (hypertension): Plan: Controlled. Continue lisinopril 10 mg p.o. every morning, metoprolol succinate 50 mg p.o. every morning, and hydralazine prn. (5) Diabetes mellitus type 2, uncontrolled: Plan: Hemoglobin A1c has been consistently above 10%. Controlled at this time with lantus + novolog SSI however. (6) Foot pain, right: Plan: see #1 above (7) Wound dehiscence, surgical: Plan: Orthopedic consultation appreciated. Dr Montaño took her to OR yesterday for I/D 2cm abscess. Also debrided the dehisced area. appreciate his assistance. (8) Osteomyelitis: Plan: 11/24/21 MRI right foot - "chronic stable osteomyelitis involving the first and second metatarsals". MRI today with similar 1st/2nd metatarsal findings in comparison to 11/24 MRI except for 2cm abscess. Continue clindamycin and daptomycin for now. Await intraop cultures from yesterday's I/D. see above regarding ID consultation, abx, etc. (9) DVT prophylaxis: Plan: Continue enoxaparin 40mg daily. Admission and Anticipated Discharge Date Admission Date: December 06, 2021 Subjective this am I received a notice from nursing that patient found her left arm PICC line in the bed -- it had "fallen out" per the patient she continues to have severe pain in the right foot she states the dilaudid demand doses from [employer]IONIST are only last about 15 minutes (current lock-out is 20min) orthopedics re-evaluated the foot today; packing removed some intermittent nausea throughout the day but is eating Review of Systems Review of Systems: gen - no fevers, no chills cv - no cp, no orthopnea pulm - no dyspnea GI - still no diarrhea Physical Exam Physical Exam: gen - awake, alert, oriented; uncomfortable from R foot pain mouth - MMM, no thrush heart - RRR, s1 s2, no murmur lungs - CTA b/l abd - soft NT ND BS+ vascular - right foot 2+ DP and pos tib pulses musculo - R first/2nd toes absent; rest of R foot wrapped in copious dressings from her surgery; no bleeding through the dressings; I did not remove these dressings skin - LUE - no palpable cord or phlebitis of the former PICC line site Results & Data Results & Data ([facility]) Vital Signs (Past 12 Hours) Vital Signs Temp Pulse Pulse Resp BP Pulse Ox 12/13/21 00:07 36.6 C 85 18 135/60 98 12/12/21 23:13 37.0 C 96 H 18 149/67 H 97 12/12/21 19:51 37.3 C 93 H 18 134/69 98 12/12/21 17:00 36.9 C 88 18 136/69 98 12/12/21 14:26 37.1 C 86 17 88/51 L 95 Laboratory Results Laboratory Results - last 24 hr 12/12/21 12/12/21 12/12/21 05:18 05:18 08:11 WBC 19.38 H RBC 4.44 Hgb 10.8 L Hct 33.9 L MCV 76.4 L MCH 24.3 L MCHC 31.9 L RDW Std Deviation 42.8 RDW Coeff of Maria Del Carmen 15.2 H Plt Count 360 MPV 10.0 Sodium 132 L Potassium 4.0 Chloride 97 L Carbon Dioxide 27 Anion Gap 8 BUN 9 Creatinine 0.46 L Est Cr Clr Drug Dosing 123.8 Est GFR ( Amer) 128.0 Est GFR (Non-Af Amer) 110.4 BUN/Creatinine Ratio 19.6 Glucose 133 H POC Glucose 129 H Calcium 8.8 12/12/21 12/12/21 12/12/21 12:03 17:03 20:41 WBC RBC Hgb Hct MCV MCH MCHC RDW Std Deviation RDW Coeff of Maria Del Carmen Plt Count MPV Sodium Potassium Chloride Carbon Dioxide Anion Gap BUN Creatinine Est Cr Clr Drug Dosing Est GFR ( Amer) Est GFR (Non-Af Amer) BUN/Creatinine Ratio Glucose POC Glucose 157 H 120 H 325 H* Calcium 12/12/21 12/13/21 20:43 00:00 WBC RBC Hgb Hct MCV MCH MCHC RDW Std Deviation RDW Coeff of Maria Del Carmen Plt Count MPV Sodium Potassium Chloride Carbon Dioxide Anion Gap BUN Creatinine Est Cr Clr Drug Dosing Est GFR ( Amer) Est GFR (Non-Af Amer) BUN/Creatinine Ratio Glucose POC Glucose 335 H* 119 H Calcium Diagnostic Findings wound cx - intra-op from 12/11 I&D right foot - no growth PG Care Time/CCT Total # of Minutes Spent Total Time Spent with Patient: Total time spent is greater than 50% in coordination of care (as documented) at patient's floor/unit and/or counseling patient: Coding Level of Care Code 72779 Subseq Hosp Care Lvl 2 Diagnoses Diabetic foot infection E11.628; L08.9 Nausea & vomiting R11.2 Vomiting type: unspecified HTN (hypertension) I10 Diabetes mellitus type 2, uncontrolled E11.65 Foot pain, right M79.671 Wound dehiscence, surgical T81.31XA Osteomyelitis M86.9 Laterality: right Osteomyelitis location: foot Osteomyelitis type: unspecified type DVT prophylaxis Z29.9 Abscess of right foot L02.611 (1) Nausea & vomiting Vomiting type: unspecified Qualified Code(s): R11.2 - Nausea with vomiting, unspecified (2) Osteomyelitis Laterality: right Osteomyelitis location: foot Osteomyelitis type: unspecified type Qualified Code(s): M86.9 - Osteomyelitis, unspecified
[2021-12-13] MEDS: CLINDAMYCIN 600 MG in DEXTROSE 5% 50 ML IV SCH ×3 (06:20→21:06)
[2021-12-13 07:09] LABS: Hematocrit (blood only) 33.2 % (37-47); Hemoglobin 10.6 g/dL (12.0-16.0); Mean Corpuscular Hemoglobin 24.6 pg (25-34); Mean Corpuscular Hgb Conc 31.9 g/dL (32-36); Mean Platelet Volume 9.5 fL (7.4-10.4); Platelet Count 329 K/uL (130-400); RDW Coefficient of Variation 15.3 % (11.5-14.5); RDW Standard Deviation 43.4 fL (36.4-46.3); Red Blood Count 4.31 M/uL (4.2-5.4); White Blood Count 12.23 K/uL (4.8-10.8)
[2021-12-13 07:28] LABS: Calcium 8.6 mg/dl (8.5-10.1); Creatinine Clr Calc Pharmacy 138.9 ml/min; Est GFR (African American) 132.9 ml/min; Est GFR (Non-African American) 114.7 ml/min; Magnesium 1.7 mg/dl (1.7-2.4)
[2021-12-13] MEDS ORDERED: HYDROmorphone PCA 30 MG/30 ML IV PRN (07:29)
[2021-12-13] MEDS: ONDANSETRON INJ 2 MG/ML 2 ML VIAL IV PRN ×3 (07:29→23:55)
[2021-12-13] MEDS ORDERED: NALOXONE HCL 0.4 MG/1 ML VIAL/CARP IV PRN (07:29)
[2021-12-13] MEDS: LORazepam 1 MG TAB PO PRN ×2 (08:49→21:06)
[2021-12-13] MEDS: INSULIN ASPART PER UNIT SC SCH ×4 (09:02→21:10)
[2021-12-13] MEDS: ASPIRIN 81 MG ECTAB PO SCH ×2 (09:03→20:27)
[2021-12-13] MEDS: ADVANCED PROBIOTIC 1250 MG CAPSULE PO SCH (09:03)
[2021-12-13] MEDS: MULTIVITAMIN TAB PO SCH (09:03)
[2021-12-13] MEDS: lisinopril 10 MG TAB PO SCH (09:03)
[2021-12-13] MEDS: LORATADINE 10 MG TAB PO SCH (09:03)
[2021-12-13] MEDS: METOPROLOL SUCC 50MG EXT REL TAB PO SCH (09:04)
[2021-12-13] MEDS: ENOXAPARIN INJ 40 MG/0.4 ML SYR SQ SCH (09:04)
[2021-12-13] MEDS: DOCUSATE SODIUM 100 MG CAP PO SCH ×2 (09:05→20:27)
[2021-12-13] MEDS: SODIUM CHLORIDE 0.9% 1000ML 1,000 ML IV SCH (13:44)
--- NOTE | 2021-12-13 14:41 | Orthopedic Progress Note ---
Date of Service December 13, 2021 Assessment & Plan (1) Diabetic foot infection: Plan: POD #2 s/p 1. Right foot incision and drainage deep and medial abscess. 2. Tenosynovectomy of septic flexor digitorum longus tendon. 3. Irrigation and debridement, medial foot wound dehiscence measuring 2.5 x 1.0 x 0.9 cm including skin, subcutaneous tissue, dermis, fascia and periosteum Daily dressing changes Continue nonweightbearing on right lower extremity. Culture showing gram-positive cocci Continue antibiotic treatment. Discharge planninguncertain at this time. Admission and Anticipated Discharge Date Admission Date: December 06, 2021 Subjective Postop day 2 Patient lying in bed sleeping. Easily awoken. States she feels a little bit of nausea today. No other complaints. Pain appears to be controlled. Physical Exam Physical Exam: Dressings removed. Remainder of packing is also been removed. Suture line is well approximated. Small area of skin maceration noted at the center of the wound. Mild bloody drainage noted. No foul odor no purulence. Wound redressed. Results & Data ([facility]) Vital Signs (Past 12 Hours) Vital Signs Temp Pulse Resp BP Pulse Ox 12/13/21 13:50 36.8 C 82 16 117/68 99 12/13/21 12:37 36.6 C 88 16 141/68 H 97 12/13/21 08:06 36.9 C 101 H 16 174/78 H 99 12/13/21 04:05 36.4 C L 65 18 140/65 98
[2021-12-13] MEDS: DAPTOmycin 500 MG in SYRINGE 0 ML IV SCH (16:24)
--- NOTE | 2021-12-13 16:25 | Hospitalist Progress Note ---
Date of Service December 13, 2021 Assessment & Plan (1) Abscess of right foot: Plan: -POD #2 s/p - Right foot incision and drainage deep and medial abscess, tenosynovectomy of septic flexor digitorum longus tendon, I&D, medial foot wound dehiscence performed by Dr Montaño -intra-op cultures thus far growth of GPC (preliminary) -continue IV daptomycin and IV clindamycin (being used in jourdan of flagyl) -pain control with [employer] dilaudid--demand dosing interval changed on 12/12 from q20min to q15min -leave demand dose at 0.2mg, no basal -follow cultures and adjust abx regimen accordingly (2) Diabetic foot infection: Plan: 11/26/21 -- RIGHT foot/ankle - Operative info: POSTOPERATIVE DIAGNOSES: 1. Right foot medial deep abscess. 2. Posterior tibial tendon septic tenosynovitis. 3. Septic tenosynovitis of the flexor digitorum longus tendon. 4. Posterior tibial tendon rupture. 5. Diabetic neuropathic ulcer of the medial ankle measuring 2.5 x 1.75 x 1.0 cm. PROCEDURE: 1. Right foot incision and drainage deep medial abscess. 2. Irrigation and debridement, posterior tibial tendon tear with resection of the posterior tibial tendon. 3. Tenosynovectomy of the posterior tibial tendon and flexor digitorum longus tendons. 4. Irrigation and debridement, medial ankle diabetic neuropathic ulcer measu ring 2.5 x 1.75 x 1.0 cm including skin, subcutaneous tissue, fascia and tendon sheath. repeat foot surgery as in #1 above for 2cm abscess Telehealth ID consult during prior admission - daptomycin + PO flagyl advised. Some concern that flagyl was causing N/V at time of admission. flagyl changed to IV clindamycin. Tolerating latter abx. No diarrhea. No N/V. Inflammatory markers all improved/stable during this stay but unfortunately she continued with severe foot pain. MRI with abscess. To OR yesterday for I/D of that abscess as well as Rx of septic tendon (see #1 above). Remains on IV daptomycin + IV clindamycin + probiotics. Per ID consult note from previous admission earlier in November her stop date for IV daptomycin is ~01/11/22. PICC line inadvertently removed 5/2 from left arm. Peripheral IV able to be obtained. Depending on cultures from yesterday may need to re-consult ID from [facility] for antibiotic selection and if the 01/11/22 stop date is still advised. Regardless will need an u/s-guided IV or new PICC in the next couple of days. (3) Nausea & vomiting: Plan: -Patient presented to [facility] with nausea and vomiting - resolved. -Suspected that this may have been from metronidazole v. gastroparesis. -Now on clindamycin and doing well without GI intolerance. -Endorsed nausea today w/o vomiting (4) HTN (hypertension): Plan: -Controlled on lisinopril, metoprolol succinate, and prn hydralazine (5) Diabetes mellitus type 2, uncontrolled: Plan: -Hemoglobin A1c has been consistently above 10%. -Controlled at this time with lantus + novolog SSI (6) Osteomyelitis: Plan: 11/24/21 MRI right foot -"chronic stable osteomyelitis involving the first and second metatarsals". MRI 12/10 with similar 1st/2nd metatarsal findings in comparison to 11/24 MRI except for 2cm abscess. -Continue clindamycin and daptomycin for now. -will d/w ID to determine if 01/11 end date for abx is still goal or will need prolonged course d/t #1 (7) DVT prophylaxis: Plan: Continue enoxaparin 40mg daily. Plan: As above. Will d/w ID the duration of abx prior to deciding on midline v PICC Follow up labs in AM D/c plan will be determined based on finalized culture data Plan d/w Dr. Alexander Leonard. Admission and Anticipated Discharge Date Admission Date: December 06, 2021 Subjective Pt seen on rounds this morning. She is resting comfortably in bed. Endorses nausea w/o vomiting. Denies diarrhea. Also noted that her IV site is red and irritating. Able to eat breakfast. Voiding w/o issue. Denies cp or dyspnea. Review of Systems Review of Systems: All systems reviewed and are unremarkable except as noted in HPI and below. Denies fever, chills, fatigue, headache, nasal congestion, sore throat, cough, chest pain, shortness of breath, palpitations, orthopnea, PND, abdominal pain, n/v/d, constipation, dysuria, hematuria, frequency, back pain, easy bruising or bleeding, skin lesions or rashes. Physical Exam Physical Exam: GENERAL: 56 yo well-developed, well-nourished WF. NAD. LUNGS: Clear to auscultation bilaterally. No W/R/R. CARDIOVASCULAR: Regular rate and rhythm. No M/G/R. No JVD. ABDOMEN: Soft, non-tender and non-distended. BS normal x 4 quad. EXTREMITIES: No edema. Non-tender. Peripheral pulses +2/4. NEUROLOGIC: A&O x3. PSYCHIATRIC: Cooperative. Appropriate mood and affect. SKIN: R foot is dressed and wrapped in ayad. Dressing does have visualized absorbed blood but not saturated. Results & Data Results & Data ([facility]) Vital Signs (Past 12 Hours) Vital Signs Temp Pulse Resp BP Pulse Ox 12/13/21 13:50 36.8 C 82 16 117/68 99 12/13/21 12:37 36.6 C 88 16 141/68 H 97 12/13/21 08:06 36.9 C 101 H 16 174/78 H 99 Laboratory Results 12/13/21 06:34 12/13/21 06:34 PG Care Time/CCT Total # of Minutes Spent Total Time Spent with Patient: Total time spent is greater than 50% in coordination of care (as documented) at patient's floor/unit and/or counseling patient: Coding Level of Care Code 07460 Subseq Hosp Care Lvl 2 Diagnoses Abscess of right foot L02.611 Diabetic foot infection E11.628; L08.9 Nausea & vomiting R11.2 Vomiting type: unspecified HTN (hypertension) I10 Diabetes mellitus type 2, uncontrolled E11.65 Osteomyelitis M86.9 Laterality: right Osteomyelitis location: foot Osteomyelitis type: unspecified type DVT prophylaxis Z29.9 (1) Nausea & vomiting Vomiting type: unspecified Qualified Code(s): R11.2 - Nausea with vomiting, unspecified (2) Osteomyelitis Laterality: right Osteomyelitis location: foot Osteomyelitis type: unspecified type Qualified Code(s): M86.9 - Osteomyelitis, unspecified
[2021-12-13] MEDS: ZOLPIDEM TARTRATE 10 MG TAB PO PRN (20:26)
[2021-12-13] MEDS: NORTRIPTYLINE HCL 25 MG CAP PO SCH (20:27)
[2021-12-13] MEDS: SENNA 8.6 MG TAB PO SCH (20:27)
[2021-12-13] MEDS: rOPINIRole HCL 2 MG TABLET PO SCH (20:27)
[2021-12-13] MEDS: INSULIN GLARGINE SOLOSTAR 100 UNITS/ML 3 ML PEN SQ SCH (21:11)
[2021-12-14] MEDS: LORazepam 1 MG TAB PO PRN ×2 (05:05→17:01)
[2021-12-14] MEDS: CLINDAMYCIN 600 MG in DEXTROSE 5% 50 ML IV SCH ×3 (05:07→22:24)
[2021-12-14 06:15] LABS: Basophils # (auto) 0.03 K/uL (0-0.2); Basophils % (auto) 0.3 %; Eosinophils # (auto) 0.66 K/uL (0-0.5); Eosinophils % (auto) 7.4 %; Hematocrit (blood only) 31.9 % (37-47); Hemoglobin 10.2 g/dL (12.0-16.0); Immature Granulocytes # (auto) 0.03 K/uL (0.00-0.02); Immature Granulocytes % (auto) 0.3 %; Lymphocytes # (auto) 2.64 K/uL (1.2-3.4); Lymphocytes % (auto) 29.6 %; Mean Corpuscular Hemoglobin 25.2 pg (25-34); Mean Corpuscular Volume 78.8 fL (80-100); Monocytes # (auto) 1.06 K/uL (0.11-0.59); Monocytes % (auto) 11.9 %; Neutrophils % (auto) 50.5 %; Platelet Count 382 K/uL (130-400); RDW Coefficient of Variation 15.3 % (11.5-14.5); RDW Standard Deviation 44.5 fL (36.4-46.3); Red Blood Count 4.05 M/uL (4.2-5.4); White Blood Count 8.92 K/uL (4.8-10.8)
[2021-12-14 06:38] LABS: BUN Creatinine Ratio 15.9 (10-20); Calcium 8.8 mg/dl (8.5-10.1); Creatinine Clr Calc Pharmacy 129.4 ml/min; Est GFR (African American) 129.9 ml/min; Est GFR (Non-African American) 112.1 ml/min; Magnesium 1.7 mg/dl (1.7-2.4); Potassium 3.9 mmol/L (3.5-5.1)
[2021-12-14] MEDS: DOCUSATE SODIUM 100 MG CAP PO SCH ×2 (08:46→20:49)
[2021-12-14] MEDS: lisinopril 10 MG TAB PO SCH (08:46)
[2021-12-14] MEDS: ENOXAPARIN INJ 40 MG/0.4 ML SYR SQ SCH (08:47)
[2021-12-14] MEDS: LORATADINE 10 MG TAB PO SCH (08:54)
[2021-12-14] MEDS: ASPIRIN 81 MG ECTAB PO SCH ×2 (08:54→20:52)
[2021-12-14] MEDS: METOPROLOL SUCC 50MG EXT REL TAB PO SCH (08:54)
[2021-12-14] MEDS: ADVANCED PROBIOTIC 1250 MG CAPSULE PO SCH (08:55)
[2021-12-14] MEDS: MULTIVITAMIN TAB PO SCH (08:55)
[2021-12-14] MEDS: INSULIN ASPART PER UNIT SC SCH ×4 (09:04→20:55)
[2021-12-14] MEDS: CYCLOBENZAPRINE HCL 10 MG TAB PO PRN (11:30)
--- NOTE | 2021-12-14 12:43 | Orthopedic Progress Note ---
Date of Service December 14, 2021 Assessment & Plan (1) Diabetic foot infection: Plan: POD #3 s/p 1. Right foot incision and drainage deep and medial abscess. 2. Tenosynovectomy of septic flexor digitorum longus tendon. 3. Irrigation and debridement, medial foot wound dehiscence measuring 2.5 x 1.0 x 0.9 cm including skin, subcutaneous tissue, dermis, fascia and periosteum continue with daily dressing changes Continue nonweightbearing on right lower extremity. Culture showing gram-positive cocci Continue antibiotic treatment. Discharge planninguncertain at this time. Admission and Anticipated Discharge Date Admission Date: December 06, 2021 Subjective POD #3 denies CP/SOB, denies fever or chills Physical Exam Physical Exam: Vital Signs Temp 36.8 C 12/14/21 08:21 Pulse 97 H 12/14/21 08:21 Resp 16 12/14/21 08:21 BP 190/88 H 12/14/21 09:52 Pulse Ox 98 12/14/21 08:21 Intake & Output 12/13/21 12/14/21 12/14/21 18:59 06:59 18:59 Intake Total 1421.000 / 1529.00 0 108 / 1529.000 Output Total 650 / 650 Balance 1421.000 / 879.000 -542 / 879.000 Intake: IV 921.000 / 1029.000 108 / 1029.000 Clindamycin 60 0 mg In Dextrose 54 / 162 108 / 162 5% 50 ml @ 100 mls/hr IV Q8H [facility] Rx#:[id number] Sodium Chlorid e 0.9% 1000ML 1, 867.000 / 867.000 000 ml @ 100 m ls/hr IV .Q10H [facility] Rx#:[id number] Oral 500 / 500 Output: Urine 650 / 650 Musculoskeletal: Right Foot: Dressings removed, all packing has previously been removed. no active drainage noted. there is some erythema noted around incisional area, no streaking noted, there is no redness to the ankle joint. skin edges is well approximated. Small area of skin maceration noted at the center of the wound. No foul odor no purulence. Wound redressed. Results & Data ([facility]) Vital Signs (Past 12 Hours) Vital Signs Temp Pulse Resp BP Pulse Ox 12/14/21 09:52 190/88 H 12/14/21 08:21 36.8 C 97 H 16 131/71 98 12/14/21 04:26 36.6 C 89 18 129/80 98 12/14/21 02:12 37.0 C 89 18 151/79 H 97
[2021-12-14] MEDS ORDERED: ACETAMINOPHEN 325 MG TAB PO PRN (14:20)
--- NOTE | 2021-12-14 14:25 | Hospitalist Progress Note ---
Date of Service December 14, 2021 Assessment & Plan (1) Abscess of right foot: Plan: -POD #3 s/p - R foot I&D deep and medial abscess, tenosynovectomy of septic flexor digitorum longus tendon, I&D, medial foot wound dehiscence performed by Dr Montaño -intra-op cultures thus far growth of GPC (preliminary) -continue IV daptomycin and IV clindamycin (being used in jourdan of flagyl) -Despite Dilaudid RN SUPPORT SERVICES being dosed as 0.2mg every 15 minutes, pain is apparently now not controlled (2) Diabetic foot infection: Plan: 11/26/21 -- RIGHT foot/ankle - Operative info: POSTOPERATIVE DIAGNOSES: 1. Right foot medial deep abscess. 2. Posterior tibial tendon septic tenosynovitis. 3. Septic tenosynovitis of the flexor digitorum longus tendon. 4. Posterior tibial tendon rupture. 5. Diabetic neuropathic ulcer of the medial ankle measuring 2.5 x 1.75 x 1.0 cm. PROCEDURE: 1. Right foot incision and drainage deep medial abscess. 2. Irrigation and debridement, posterior tibial tendon tear with resection of the posterior tibial tendon. 3. Tenosynovectomy of the posterior tibial tendon and flexor digitorum longus tendons. 4. Irrigation and debridement, medial ankle diabetic neuropathic ulcer measuring 2.5 x 1.75 x 1.0 cm including skin, subcutaneous tissue, fascia and tendon sheath. repeat foot surgery as in #1 above for 2cm abscess Telehealth ID consult during prior admission - daptomycin + PO flagyl advised. Some concern that flagyl was causing N/V at time of admission. flagyl changed to IV clindamycin. Tolerating latter abx. No diarrhea. No N/V. Inflammatory markers all improved/stable during this stay but unfortunately she continued with severe foot pain. MRI with abscess. To OR yesterday for I/D of that abscess as well as Rx of septic tendon (see #1 above). Remains on IV daptomycin + IV clindamycin + probiotics. Per ID consult note from previous admission earlier in November her stop date for IV daptomycin is ~01/11/22. PICC line inadvertently removed / from left arm. Peripheral IV able to be obtained. Depending on cultures from yesterday may need to re-consult ID from [place] for antibiotic selection and if the 01/11/22 stop date is still advised. Regardless will need an u/s-guided IV or new PICC in the next couple of days. (3) Nausea & vomiting: Plan: -Patient presented to [facility] with nausea and vomiting - resolved. -Suspected that this may have been from metronidazole v. gastroparesis. -Now on clindamycin and doing well without GI intolerance. -Endorsed no n/v today (12/14) (4) Anemia: Plan: -Seems to have post-op anemia following every surgery -H&H sable over the past 72 hours (5) HTN (hypertension): Plan: -Controlled on lisinopril, metoprolol succinate, and prn hydralazine -accelerated this AM (12/14) but suspect this is due to her being upset/angry about her pain medications (6) Diabetes mellitus type 2, uncontrolled: Plan: -Hemoglobin A1c has been consistently above 10%. -Controlled at this time with lantus + novolog SSI (7) Osteomyelitis: Plan: 11/24/21 MRI right foot -"chronic stable osteomyelitis involving the first and second metatarsals". MRI 12/10 with similar 1st/2nd metatarsal findings in comparison to 11/24 MRI except for 2cm abscess. -Continue clindamycin and daptomycin for now. -will d/w ID to determine if 01/11 end date for abx is still goal or will need prolonged course d/t #1 (8) DVT prophylaxis: Plan: Continue enoxaparin 40mg daily. Plan: Unsure as to plan for IV access senior care since IV team is stating not able to place a PICC and pt is refusing IJ. Also unclear if due to recurrent infection and need yet again for surgical intervention if her tentative stop date of 01/11 for IV antibiotic completion is still the plan. Subsequently, I have consulted [facility] for them to weigh in on this. Regarding her pain control, pt became irate and shouting to "get my discharge paperwork", to "get the F out", and "do not come back in my room." She later requested to speak with case management and then attending physician. Dr. Leonard visited with patient and she yet again asked for her Dilaudid RN SUPPORT SERVICES dose to be increased or frequency interval to be decreased. Dr. Leonard reiterated that he would not be doing that. They discussed options further regarding pain management in order to better prepare her for discharge. She was agreeable to transitioning off of the RN SUPPORT SERVICES and resuming Dilaudid 1mg every 3 hours. This will only be utilized for pain rated #8-10. For mild pain will use APAP 650mg for scale #1-3, and for moderate pain will utilize Percocet 5/325mg every 6 hours for pain rated #4-7. No plan for follow up labs at this time other than routine CK monitoring due to being on Daptomycin. Above plan of care has been discussed in detail with Dr. Alexander Leonard. Admission and Anticipated Discharge Date Admission Date: December 06, 2021 Subjective Patient seen on daily rounds this morning. She reports that she was up "every hour" last night due to uncontrolled pain. She is requesting that her Dilaudid RN SUPPORT SERVICES dose either be increased or the interval in which she is receiving it be decreased. She denies cp, dyspnea, n/v/d, f/c, headache, or gu symptoms. Peripheral IV site was replaced last night. Was seen by IV team, stated that they would need to place an IJ d/t lack of available peripheral veins and concern for inability to place another PICC. She absolutely refuses placement of an IJ. Review of Systems Review of Systems: All systems reviewed and are unremarkable except as noted in HPI and below. Denies fever, chills, fatigue, headache, nasal congestion, sore throat, cough, chest pain, shortness of breath, palpitations, orthopnea, PND, abdominal pain, n/v/d, constipation, dysuria, hematuria, frequency, back pain, easy bruising or bleeding, skin lesions or rashes. Physical Exam 2 Physical Exam: GENERAL: 56 yo well-developed, well-nourished WF. NAD. LUNGS: Clear to auscultation bilaterally. No W/R/R. CARDIOVASCULAR: Regular rate and rhythm. No M/G/R. No JVD. ABDOMEN: Soft, non-tender and non-distended. BS normal x 4 quad. EXTREMITIES: No edema. Non-tender. Peripheral pulses +2/4. NEUROLOGIC: A&O x3. PSYCHIATRIC: Cooperative. Appropriate mood and affect. SKIN: R foot is dressed and wrapped in ayad. Results & Data Results & Data ([facility]) Vital Signs (Past 12 Hours) Vital Signs Temp Pulse Resp BP Pulse Ox 12/14/21 09:52 190/88 H 12/14/21 08:21 36.8 C 97 H 16 131/71 98 12/14/21 04:26 36.6 C 89 18 129/80 98 Laboratory Results 12/14/21 05:26 12/14/21 05:26 PG Care Time/CCT Total # of Minutes Spent Total Time Spent with Patient: Total time spent is greater than 50% in coordination of care (as documented) at patient's floor/unit and/or counseling patient: Coding Level of Care Code 19160 Subseq Hosp Care Lvl 3 Diagnoses Abscess of right foot L02.611 Diabetic foot infection E11.628; L08.9 Nausea & vomiting R11.2 Vomiting type: unspecified HTN (hypertension) I10 Diabetes mellitus type 2, uncontrolled E11.65 Osteomyelitis M86.9 Laterality: right Osteomyelitis location: foot Osteomyelitis type: unspecified type DVT prophylaxis Z29.9 Anemia D64.9 (1) Nausea & vomiting Vomiting type: unspecified Qualified Code(s): R11.2 - Nausea with vomiting, unspecified (2) Osteomyelitis Laterality: right Osteomyelitis location: foot Osteomyelitis type: unspecified type Qualified Code(s): M86.9 - Osteomyelitis, unspecified
[2021-12-14] MEDS: HYDROmorphone INJ 1 MG/ML SYRINGE IV PRN ×3 (15:56→22:31)
[2021-12-14] MEDS: DAPTOmycin 500 MG in SYRINGE 0 ML IV SCH (16:23)
[2021-12-14] MEDS: SODIUM CHLORIDE 0.9% 1000ML 1,000 ML IV SCH (16:23)
[2021-12-14] MEDS: oxyCODONE/ACETAMINOPHEN 5mg/325mg TAB PO PRN (17:05)
[2021-12-14] MEDS: ONDANSETRON INJ 2 MG/ML 2 ML VIAL IV PRN (19:22)
[2021-12-14] MEDS: ZOLPIDEM TARTRATE 10 MG TAB PO PRN (19:31)
[2021-12-14] MEDS: NORTRIPTYLINE HCL 25 MG CAP PO SCH (20:51)
[2021-12-14] MEDS: rOPINIRole HCL 2 MG TABLET PO SCH (20:51)
[2021-12-14] MEDS: SENNA 8.6 MG TAB PO SCH (20:52)
[2021-12-14] MEDS: INSULIN GLARGINE SOLOSTAR 100 UNITS/ML 3 ML PEN SQ SCH (20:55)
[2021-12-15] MEDS: HYDROmorphone INJ 1 MG/ML SYRINGE IV PRN ×6 (02:15→21:18)
[2021-12-15] MEDS: oxyCODONE/ACETAMINOPHEN 5mg/325mg TAB PO PRN ×3 (04:15→22:18)
[2021-12-15] MEDS: CLINDAMYCIN 600 MG in DEXTROSE 5% 50 ML IV SCH ×2 (06:21→14:32)
[2021-12-15] MEDS: ASPIRIN 81 MG ECTAB PO SCH (08:48)
[2021-12-15] MEDS: DOCUSATE SODIUM 100 MG CAP PO SCH ×2 (08:48→21:21)
[2021-12-15] MEDS: MULTIVITAMIN TAB PO SCH (08:48)
[2021-12-15] MEDS: ADVANCED PROBIOTIC 1250 MG CAPSULE PO SCH (08:48)
[2021-12-15] MEDS: LORATADINE 10 MG TAB PO SCH (08:48)
[2021-12-15] MEDS: lisinopril 10 MG TAB PO SCH (08:49)
[2021-12-15] MEDS: ENOXAPARIN INJ 40 MG/0.4 ML SYR SQ SCH (08:49)
[2021-12-15] MEDS: ONDANSETRON INJ 2 MG/ML 2 ML VIAL IV PRN ×2 (08:50→17:47)
[2021-12-15] MEDS: INSULIN ASPART PER UNIT SC SCH ×4 (08:51→21:16)
[2021-12-15] MEDS: CYCLOBENZAPRINE HCL 10 MG TAB PO PRN (08:59)
[2021-12-15] MEDS: LORazepam 1 MG TAB PO PRN ×2 (08:59→16:02)
[2021-12-15] MEDS ORDERED: oxyCODONE/ACETAMINOPHEN 5mg/325mg TAB PO PRN (10:13)
[2021-12-15] MEDS: METOPROLOL SUCC 50MG EXT REL TAB PO SCH (10:28)
--- NOTE | 2021-12-15 12:30 | Hospitalist Progress Note ---
Date of Service December 15, 2021 Assessment & Plan (1) Abscess of right foot: Plan: -12/11: R foot I&D deep and medial abscess, tenosynovectomy of septic flexor digitorum longus tendon, I&D, medial foot wound dehiscence-- Dr Montaño -intra-op cultures - coag neg staph. final culture pending (prior wound culture with MRSA and Prevotella) -initially on IV daptomycin and IV clindamycin (being used in jourdan of flagyl given reports nausea from flagyl) -has since been seen by ID who recommends continuation of Dapto and changing Clinda to Invanz and treating x 6 weeks (from the day of recent surgery given Osteo). ABX THERAPY TO CONCLUDE 01/22 -did have PICC but patient removed? will need appropriate IV access with PICC or midline -was on Dilaudid [employer]IST but has since been transitioned to Percocet. Will increase to 1 tab Q6h for pain 1-5 and 1 tabs q6h for pain 6-10 (2) Osteomyelitis: Plan: - Diabetic foot ulcer of right first and second toe started 03/02 following. Seen by orthopedics and referred to wound care at that time - Nonhealing wound which led to amputation of partial first and second toes course of event: 08/02: - Seen by vascular surgery. Referred to the ED at that time. Had CT angiogram with runoff showing 6 mm fluid collection along the plantar medial aspect of the right first metatarsal phalangeal joint consistent with small abscess -- Work-up at that time also showed right leg with mild to moderate iliac/SFA disease. Severe KERLINE disease. It was not felt that the wounds were secondary to ischemia or embolic event. Arterial perfusion adequate for wound healing. -- MRI: Marrow edema of distal phalanx likely osteitis -- 07/16: I&D of right first metatarsal phalangeal abscess, exostectomy distal phalanx osteomyelitis great toe, debridement of diabetic ulceration. -- Culture data with MRSA/GNR at that time -- ID involved at that time: recommended IV Dapto x 6 weeks and Rocephin x4-6 weeks -- 07/23: Right great toe amputation at interphalangeal level with right flexor hallucis longus tenodesis -- At that point, it was felt that her issue was more osteitis rather than osteomyelitis and given amputation, she did not warrant any added IV antibiotics thus was discharged with Augmentin 08/02 -- readmitted 14 days later with wound infection -- repeat MRI showing concern for ongoing Osteomyelitis -- 08/12: further amputation of the right great toe, resection of flexor hallucis longus, I&D of medial hindfoot abscess, tenosynovectomy of supportive flexor digitorum longus and posterior tibial tendon -- seen by ID again, recommended short course of antibiotics if osteomyelitis resolved at closure of surgery. 4 to 6 weeks if residual osteomyelitis noted -- Continued IV antibiotics while in house. Transitioned to oral clindamycin on day of discharge for an additional 14 days 09/03 -- Underwent additional surgical intervention on 09/02 (I&D of great toe amputation site, medial ankle, tenosynovectomy's, and bead implantation) -- Discharged with IV daptomycin X 6 weeks at that time 10/04 -- Readmitted 10/04 due to worsening right foot while on IV daptomycin. MRI at that time showed concern for worsening osteomyelitis now involving the second metatarsal head -- 09/30: I&D distal forefoot abscess, debridement forefoot skin/subcutaneous tissue, fascia, first and second metatarsal bone, medial ankle debridement, ten osynovectomy -- Wound culture at that time showed Enterobacter cloacae and Klebsiella -- Discharged with IV vancomycin and cefepime Somewhere between her September discharge and October readmission, her antibiotics were discontinued and she was transitioned to oral Cipro. Pain significantly worsened causing her to come back to the emergency department. 11/01: -- Completed full course of antibiotics. Came back due to increased pain -- Seen additionally by infectious disease who recommended 2 additional weeks of IV cefepime and vancomycin to end on 11/19 -- Discharged with wound VAC and to follow-up with wound care 12/02 -- Readmitted due to worsening pain after stopping antibiotics -- MRI with stable osteomyelitis involving the first metatarsal and distal amputation margin of the second metatarsal with soft tissue infection -- 11/26 underwent I&D of abscess tenosynovectomy -- Wound culture with MRSA and Prevotella -- Discharged with IV daptomycin X 6 weeks along with oral Flagyl - 11/24/21 MRI right foot -"chronic stable osteomyelitis involving the first and second metatarsals". - MRI 12/10 with similar 1st/2nd metatarsal findings in comparison to 11/24 MRI except for 2cm abscess. - Empirically on clindamycin (as was intolerant to oral flagyl) and daptomycin - has since been seen by infectious disease who is recommending 6 weeks of IV antibiotic (Start date following recent surgical intervention) which would conclude on 01/22 - personally, with review of recurrent hospitalization and multiple rounds of abx-- - uncertain is she has failed abx therapy as there is question that she reinfects the wound, is noncompliant with the dressings, she pulled out her PICC - would attempt a full 6 weeks of IV abx therapy and if no improvement with compliance and completiong, I believe that she may warrant a BKA at that time - PICC line removed (by patient). Needs another (3) Diabetic foot infection: Plan: - on IV Dapto/Invanz (at recommendations of ID) to conclude 01/22 (4) Nausea & vomiting: Plan: -Patient presented to [facility] with nausea and vomiting - resolved. -Suspected that this may have been from metronidazole v. gastroparesis. -Endorsed no n/v (12/14 or 12/15) (5) Anemia: Plan: -Seems to have post-op anemia following every surgery -H&H sable (6) HTN (hypertension): Plan: -Controlled on lisinopril, metoprolol succinate, and prn hydralazine (7) Diabetes mellitus type 2, uncontrolled: Plan: -Hemoglobin A1c has been consistently above 10%. -Controlled at this time with lantus + novolog SSI (8) DVT prophylaxis: Plan: Continue enoxaparin 40mg daily. Plan: There is mention that patient is unable to have a PICC line. Uncertain of details regarding this. We will discussed with IV team. Cannot go home with a central line. She will need IV antibiotics through 01/22. Above plan of care has been discussed in detail with Dr. Clemons Admission and Anticipated Discharge Date Admission Date: December 06, 2021 Subjective Patient seen on daily rounds today. Remains frustrated that her Dilaudid pain pump was discontinued yesterday. Claims that her pain is not adequately controlled with the Percocet. Reports that she is only receiving 1 and prior to this hospitalization was on Percocet and taking 2 tablets. She denies fevers, chills, chest pain, shortness of breath, abdominal pain, nausea or vomiting. Review of Systems Review of Systems: All systems reviewed and are unremarkable except as noted in HPI and below Denies fevers, chills, headache, nasal congestion, sore throat, cough, chest pain, shortness of breath, palpitations, orthopnea, PND, abdominal pain, nausea, vomiting, diarrhea, constipation, dysuria, hematuria, frequency, back pain, joint pain or swelling, easy bruising or bleeding, skin lesions or rashes. Physical Exam Physical Exam: General: Resting comfortably in her hospital bed. NAD. HEENT: Head is AT/NC. Buccal mucosa is moist and pink Neck: No JVD. Negative hepatojugular reflex Cardiac: RRR without M/G/R Lungs: CTA without W/R/R Abdomen: Normoactive X4. Soft and nontender in all quadrants. Extremities: Right lower extremity with splint and Mikey wrap. Toes visible. No right great toe given prior amputation. The Mikey wrap at the medial malleoli are region does seem to be wet from serosanguineous drainage. Negative Homans' sign. Neuro: A&O X4. Cranial nerves II through XII are grossly intact. No focal neuro deficits Skin: No obvious skin lesions or rashes Psych: Appropriate affect. Pleasant and cooperative Results & Data Results & Data ([facility]) Vital Signs (Past 12 Hours) Vital Signs Pulse Resp BP Pulse Ox 12/15/21 08:19 85 16 124/69 94 Laboratory Results 12/14/21 05:26 05/04/22 05:26 PG Care Time/CCT Total # of Minutes Spent Total Time Spent with Patient: Total time spent is greater than 50% in coordination of care (as documented) at patient's floor/unit and/or counseling patient: Coding Level of Care Code 09030 Subseq Hosp Care Lvl 3 Diagnoses Abscess of right foot L02.611 Diabetic foot infection E11.628; L08.9 Nausea & vomiting R11.2 Vomiting type: unspecified Anemia D64.9 HTN (hypertension) I10 Diabetes mellitus type 2, uncontrolled E11.65 Osteomyelitis M86.9 Laterality: right Osteomyelitis location: foot Osteomyelitis type: unspecified type DVT prophylaxis Z29.9 (1) Nausea & vomiting Vomiting type: unspecified Qualified Code(s): R11.2 - Nausea with vomiting, unspecified (2) Osteomyelitis Laterality: right Osteomyelitis location: foot Osteomyelitis type: unspecified type Qualified Code(s): M86.9 - Osteomyelitis, unspecified
[2021-12-15] MEDS ORDERED: ERTAPENEM SODIUM 10 ML IV SCH (15:45)
[2021-12-15] MEDS: DAPTOmycin 500 MG in SYRINGE 0 ML IV SCH (16:41)
[2021-12-15] MEDS: ERTAPENEM SODIUM 1,000 MG in SYRINGE 0 ML IV SCH (16:42)
[2021-12-15] MEDS: hydrALAZINE HCL 20 MG/ML VIAL IV PRN (17:48)
[2021-12-15] MEDS: INSULIN GLARGINE SOLOSTAR 100 UNITS/ML 3 ML PEN SQ SCH (21:17)
[2021-12-15] MEDS: NORTRIPTYLINE HCL 25 MG CAP PO SCH (21:21)
[2021-12-15] MEDS: rOPINIRole HCL 2 MG TABLET PO SCH (21:21)
[2021-12-15] MEDS: SENNA 8.6 MG TAB PO SCH (21:22)
[2021-12-15] MEDS: ZOLPIDEM TARTRATE 10 MG TAB PO PRN (21:34)
[2021-12-16] MEDS: HYDROmorphone INJ 1 MG/ML SYRINGE IV PRN ×6 (01:44→21:29)
[2021-12-16] MEDS: ONDANSETRON INJ 2 MG/ML 2 ML VIAL IV PRN ×4 (02:08→22:24)
[2021-12-16] MEDS ORDERED: diphenhydrAMINE HCl 12.5 MG/5 ML UDC PO ONE (02:31)
[2021-12-16] MEDS ORDERED: ACETAMINOPHEN 500 MG TAB PO STA (06:17)
--- NOTE | 2021-12-16 06:26 | Communication Note ---
Date of Service: December 16, 2021 Called to patient's room for chest and left arm discomfort around 0600. Patient tells me this sharp chest pain, primarily located around her L shoulder, began spontaneously about 10-15 min prior after no specific trigger. She says it radiates towards the center of her chest and down her arm. Her breathing feels normal to her. She denies belly pain. She says she has had this pain before but not in a long time. She declines having it while here. 151/90, HR 87, RR 18, T 37, SpO2 100% on RA Upon arrival into the room, patient is mildly tearful. She tells me "I'm tired of going through all of this." She appears in mild distress. Neck - No JVD. Cardiac - NRRR, +s1/s2 w/o m/r/g. Respiratory - CTAB w/o crackles or wheezes. Abdominal - mild epigastric tenderness. MSK - +tenderness to palpation over the L anterior chest wall, toward the shoulder, and down the arm that patient describes as recreating the pain. No TTP over the neck. Shoulder, arm strength 5/5 bilaterally. The description of this pain and the fact it is reproducible on exam seems consistent with a musculoskeletal etiology. Her STAT ECG does not show any juarez ges compared to prior exam on 12/07. I did review previous cardiology consultation on 02/09/2021, which revealed that patient has had long-term history of atypical chest pains -- described similarly to her team then as she did with me today. Cath at [facility] on 09/2019 demonstrated nonobstructive CAD (any irregularities / stenosis were < 30%). She also reportedly had a negative stress test with [facility] [place] in Summer of 2020 which was also reassuring. With these facts considered and the reassuring findings on exam, low suspicion this is cardiac in nature. More likely costochondritis vs. sprain/strain. No findings at present c/w GI pathology. Will check one hsTpI now. Apply K-pad. Give Tylenol. Consider OMT. Monitor symptoms through AM. Low threshold to trial nitro if worsening. Communicated plan to patient's RN. Resident Activity Tracking Resident Involvement: Resident Care Provided Care Provided: Adult [facility]
[2021-12-16] MEDS: LORazepam 1 MG TAB PO PRN (06:30)
[2021-12-16] MEDS: oxyCODONE/ACETAMINOPHEN 5mg/325mg TAB PO PRN ×2 (07:59→12:56)
[2021-12-16] MEDS: MULTIVITAMIN TAB PO SCH (08:00)
[2021-12-16] MEDS: ADVANCED PROBIOTIC 1250 MG CAPSULE PO SCH (08:00)
[2021-12-16] MEDS: ASPIRIN 81 MG ECTAB PO SCH (08:00)
[2021-12-16] MEDS: LORATADINE 10 MG TAB PO SCH (08:00)
[2021-12-16] MEDS: METOPROLOL SUCC 50MG EXT REL TAB PO SCH (08:00)
[2021-12-16] MEDS: lisinopril 10 MG TAB PO SCH (08:00)
[2021-12-16] MEDS: DOCUSATE SODIUM 100 MG CAP PO SCH ×2 (08:01→21:27)
[2021-12-16] MEDS: ENOXAPARIN INJ 40 MG/0.4 ML SYR SQ SCH (08:01)
[2021-12-16] MEDS: INSULIN ASPART PER UNIT SC SCH ×4 (09:02→21:51)
[2021-12-16] MEDS: hydrOXYzine HCl 25 MG TAB PO PRN (10:42)
--- NOTE | 2021-12-16 15:34 | Hospitalist Progress Note ---
Date of Service December 16, 2021 Assessment & Plan (1) Abscess of right foot: Plan: -12/11: R foot I&D deep and medial abscess, tenosynovectomy of septic flexor digitorum longus tendon, I&D, medial foot wound dehiscence-- Dr Montaño -intra-op cultures - coag neg staph. final culture pending (prior wound culture with MRSA and Prevotella) -initially on IV daptomycin and IV clindamycin (being used in jourdan of flagyl given reports nausea from flagyl) -has since been seen by ID who recommends continuation of Dapto and changing Clinda to Invanz and treating x 6 weeks (from the day of recent surgery given Osteo). ABX THERAPY TO CONCLUDE 01/22 -did have PICC but patient removed? will need appropriate IV access with PICC or midline -I have a message out to infectious disease to discuss potentially utilizing Dalvance 1500 mg infusion on days #1 and 8 (which would be the equivalent of 8 weeks of IV antibiotics) along with oral Flagyl vs Invanz. -At this point, I am uncertain if patient has failed IV antibiotic therapy and perhaps warrants amputation. With review of course of events, patient has been on IV antibiotic therapy for the most part since 08/02. Despite this, she has had polymicrobial infections (initially with Klebsiella and Enterococcus but subsequent wound cultures showing MRSA and Prevotella). Patient potentially read contaminating the wound. Lengthy discussion with her and orthopedics regarding potential need for BKA. To be seen by Dr. Montaño today to discuss this possibility. Of course patient not happy about this but understands the reality and is agreeable if recommended by orthopedics. Would be inclined to trial IV antibiotics (Dalvance plus Flagyl versus Invanz) X 6 weeks and if worsening throughout that time or no improvement following, then proceed with amputation but appreciate assistance from orthopedics. Again, will discuss with infectious disease. -Patient has been seen by vascular and had full work-upsee below -was on Dilaudid BEAN SORTER but has since been transitioned to Percocet. (2) Osteomyelitis: Plan: - Diabetic foot ulcer of right first and second toe started 03/02 following. Seen by orthopedics and referred to wound care at that time - Nonhealing wound which led to amputation of partial first and second toes course of event: 08/02: - Seen by vascular surgery. Referred to the ED at that time. Had CT angiogram with runoff showing 6 mm fluid collection along the plantar medial aspect of the right first metatarsal phalangeal joint consistent with small abscess -- Work-up at that time also showed right leg with mild to moderate iliac/SFA disease. Severe KERLINE disease. It was not felt that the wounds were secondary to ischemia or embolic event. Arterial perfusion adequate for wound healing. -- MRI: Marrow edema of distal phalanx likely osteitis -- 07/16: I&D of right first metatarsal phalangeal abscess, exostectomy distal phalanx osteomyelitis great toe, debridement of diabetic ulceration. -- Culture data with MRSA/GNR at that time -- ID involved at that time: recommended IV Dapto x 6 weeks and Rocephin x4-6 weeks -- 07/23: Right great toe amputation at interphalangeal level with right flexor hallucis longus tenodesis -- At that point, it was felt that her issue was more osteitis rather than osteomyelitis and given amputation, she did not warrant any added IV antibiotics thus was discharged with Augmentin 08/02 -- readmitted 14 days later with wound infection -- repeat MRI showing concern for ongoing Osteomyelitis -- 08/12: further amputation of the right great toe, resection of flexor hallucis longus, I&D of medial hindfoot abscess, tenosynovectomy of supportive flexor digitorum longus and posterior tibial tendon -- seen by ID again, recommended short course of antibiotics if osteomyelitis resolved at closure of surgery. 4 to 6 weeks if residual osteomyelitis noted -- Continued IV antibiotics while in house. Transitioned to oral clindamycin on day of discharge for an additional 14 days 09/03 -- Underwent additional surgical intervention on 09/02 (I&D of great toe amputation site, medial ankle, tenosynovectomy's, and bead implantation) -- Discharged with IV daptomycin X 6 weeks at that time 10/04 -- Readmitted 10/04 due to worsening right foot while on IV daptomycin. MRI at that time showed concern for worsening osteomyelitis now involving the second metatarsal head -- 09/30: I&D distal forefoot abscess, debridement forefoot skin/subcutaneous tissue, fascia, first and second metatarsal bone, medial ankle debridement, tenosynovectomy -- Wound culture at that time showed Enterobacter cloacae and Klebsiella -- Discharged with IV vancomycin and cefepime Somewhere between her September discharge and October readmission, her antibiotics were discontinued and she was transitioned to oral Cipro. Pain significantly worsened causing her to come back to the emergency department. 11/01: -- Completed full course of antibiotics. Came back due to increased pain -- Seen additionally by infectious disease who recommended 2 additional weeks of IV cefepime and vancomycin to end on 11/19 -- Discharged with wound VAC and to follow-up with wound care 12/02 -- Readmitted due to worsening pain after stopping antibiotics -- MRI with stable osteomyelitis involving the first metatarsal and distal amputation margin of the second metatarsal with soft tissue infection -- 11/26 underwent I&D of abscess tenosynovectomy -- Wound culture with MRSA and Prevotella -- Discharged with IV daptomycin X 6 weeks along with oral Flagyl - 11/24/21 MRI right foot -"chronic stable osteomyelitis involving the first and second metatarsals". - MRI 12/10 with similar 1st/2nd metatarsal findings in comparison to 11/24 MRI except for 2cm abscess. - Although patient is s/p amputation of the first and second toes, she has residual osteomyelitis into the transmetatarsal. I did discuss with orthopedics potential transmetatarsal amputation; however, they believe that there is around the medial malleoli are region which would require BKA. input from orthopedics. - has since been seen by infectious disease who is recommending 6 weeks of IV antibiotic (Start date following recent surgical intervention) which would conclude on 01/22 - personally, with review of recurrent hospitalization and multiple rounds of abx-- - uncertain is she has failed abx therapy as there is question that she reinfects the wound, is noncompliant with the dressings, she pulled out her PICC - would attempt a full 6 weeks of IV abx therapy and if no improvement with compliance and completion, I believe that she may warrant a BKA at that time - PICC line removed (by patient). Needs another. Awaiting recommendations from infectious disease regarding Dalvance (as can be given through peripheral IV) with Invanz versus Flagyl (3) Diabetic foot infection: Plan: - on IV Dapto/Invanz (at recommendations of ID) to conclude 01/22 (4) Nausea & vomiting: Plan: -Patient presented to [facility] with nausea and vomiting - resolved. -Prior provider thought perhaps secondary to metronidazole; however, patient reports that she was told to stop this medication and she was not taking it upon arrival. Perhaps the infection was contributing to this -Endorsed no n/v (12/14 or 5) (5) Anemia: Plan: -Seems to have post-op anemia following every surgery -H&H sable (6) HTN (hypertension): Plan: -Controlled on lisinopril, metoprolol succinate, and prn hydralazine (7) Diabetes mellitus type 2, uncontrolled: Plan: -Hemoglobin A1c has been consistently above 10%. -Controlled at this time with lantus + novolog SSI -Lengthy discussion with patient regarding the importance of good glycemic control and how this affects wound healing (8) DVT prophylaxis: Plan: Continue enoxaparin 40mg daily. Plan: There was mention that the patient was not able to have a PICC line. I did personally ask IV team about this and she had a PICC line that she removed. She is anatomically able to have additional PICC line if needed but needed to be 24 hours after the removal of the prior PICC line (whichthat has since passed) Above plan of care has been discussed in detail with Dr. Clemons Admission and Anticipated Discharge Date Admission Date: December 06, 2021 Subjective Patient seen on daily rounds today. Still with persistent foot pain. Per nursing staff, medial ankle wound has partially dehisced. She has not had any fevers, chills, and has remained hemodynamically stable. Her white blood cell count remains normal. She did have complaints of chest pain early this morning. Was seen by the overnight resident. EKG ordered and nonacute. Troponin negative. When seen by myself, still complaining of some mild discomfort but believes its related to anxiety over the thought of losing her leg. Does have a longstanding history of atypical chest discomfort. Nonobstructive disease seen in 2019. Review of Systems Review of Systems: All systems reviewed and are unremarkable except as noted in HPI and below Denies fevers, chills, headache, nasal congestion, sore throat, cough, chest pain, shortness of breath, palpitations, orthopnea, PND, abdominal pain, nausea, vomiting, diarrhea, constipation, dysuria, hematuria, frequency, back pain, joint pain or swelling, easy bruising or bleeding, skin lesions or rashes. Physical Exam Physical Exam: General: Resting comfortably in her hospital bed. NAD. HEENT: Head is AT/NC. Buccal mucosa is moist and pink Neck: No JVD. Negative hepatojugular reflex Cardiac: RRR without M/G/R Lungs: CTA without W/R/R Abdomen: Normoactive X4. Soft and nontender in all quadrants. Extremities: Right lower extremity with splint and Mikey wrap. Toes visible. No right great toe given prior amputation. The Mikey wrap at the medial malleoli are region does seem to be wet from serosanguineous drainage. Negative Homans' sign. Neuro: A&O X4. Cranial nerves II through XII are grossly intact. No focal neuro deficits Skin: No obvious skin lesions or rashes Psych: Appropriate affect. Pleasant and cooperative Results & Data Results & Data ([facility]) Vital Signs (Past 12 Hours) Vital Signs Pulse Pulse Resp BP Pulse Ox 12/16/21 08:21 84 16 145/81 H 98 12/16/21 05:55 87 18 151/90 H 100 Laboratory Results 12/14/21 05:26 12/14/21 05:26 PG Care Time/CCT Total # of Minutes Spent Total Time Spent with Patient: Total time spent is greater than 50% in coordination of care (as documented) at patient's floor/unit and/or counseling patient: Coding Level of Care Code 85606 Subseq Hosp Care Lvl 2 Diagnoses Abscess of right foot L02.611 Osteomyelitis M86.9 Laterality: right Osteomyelitis location: foot Osteomyelitis type: unspecified type Diabetic foot infection E11.628; L08.9 Nausea & vomiting R11.2 Vomiting type: unspecified Anemia D64.9 HTN (hypertension) I10 Diabetes mellitus type 2, uncontrolled E11.65 DVT prophylaxis Z29.9 (1) Osteomyelitis Laterality: right Osteomyelitis location: foot Osteomyelitis type: unspecified type Qualified Code(s): M86.9 - Osteomyelitis, unspecified (2) Nausea & vomiting Vomiting type: unspecified Qualified Code(s): R11.2 - Nausea with vomiting, unspecified
[2021-12-16] MEDS: ERTAPENEM SODIUM 1,000 MG in SYRINGE 0 ML IV SCH (16:21)
[2021-12-16] MEDS: DAPTOmycin 500 MG in SYRINGE 0 ML IV SCH (16:21)
[2021-12-16] MEDS: NORTRIPTYLINE HCL 25 MG CAP PO SCH (21:27)
[2021-12-16] MEDS: rOPINIRole HCL 2 MG TABLET PO SCH (21:27)
[2021-12-16] MEDS: SENNA 8.6 MG TAB PO SCH (21:30)
[2021-12-16] MEDS: INSULIN GLARGINE SOLOSTAR 100 UNITS/ML 3 ML PEN SQ SCH (21:51)
[2021-12-16] MEDS: ZOLPIDEM TARTRATE 10 MG TAB PO PRN (22:22)
[2021-12-17] MEDS: HYDROmorphone INJ 1 MG/ML SYRINGE IV PRN ×5 (03:31→22:33)
[2021-12-17] MEDS: ONDANSETRON INJ 2 MG/ML 2 ML VIAL IV PRN ×2 (03:32→10:16)
[2021-12-17] MEDS: oxyCODONE/ACETAMINOPHEN 5mg/325mg TAB PO PRN ×3 (05:42→20:04)
[2021-12-17] MEDS: LORazepam 1 MG TAB PO PRN (07:12)
--- NOTE | 2021-12-17 07:41 | Electrocardiogram Report ---
Test Reason : Blood Pressure : / mmHG Vent. Rate : 091 BPM Atrial Rate : 091 BPM P-R Int : 158 ms QRS Dur : 094 ms QT Int : 342 ms P-R-T Axes : 059 072 062 degrees QTc Int : 420 ms Normal sinus rhythm Normal ECG When compared with ECG of 07-DEC-2021 12:48, No significant change was found Confirmed by Aakash Ruff ([id number]) on 12/17/2021 7:41:04 AM Referred By: REFERRED SELF Confirmed By:Aakash Ruff
[2021-12-17] MEDS: INSULIN ASPART PER UNIT SC SCH ×4 (09:10→21:02)
[2021-12-17] MEDS: DOCUSATE SODIUM 100 MG CAP PO SCH ×2 (09:15→21:03)
[2021-12-17] MEDS: hydrOXYzine HCl 25 MG TAB PO PRN ×2 (09:15→16:44)
[2021-12-17] MEDS: LORATADINE 10 MG TAB PO SCH (09:15)
[2021-12-17] MEDS: METOPROLOL SUCC 50MG EXT REL TAB PO SCH (09:15)
[2021-12-17] MEDS: ADVANCED PROBIOTIC 1250 MG CAPSULE PO SCH (09:16)
[2021-12-17] MEDS: ASPIRIN 81 MG ECTAB PO SCH (09:16)
[2021-12-17] MEDS: MULTIVITAMIN TAB PO SCH (09:16)
[2021-12-17] MEDS: lisinopril 10 MG TAB PO SCH (09:16)
[2021-12-17] MEDS: ENOXAPARIN INJ 40 MG/0.4 ML SYR SQ SCH (09:17)
--- NOTE | 2021-12-17 09:51 | Hospitalist Progress Note ---
Date of Service December 17, 2021 Assessment & Plan (1) Abscess of right foot: Plan: -12/11: R foot I&D deep and medial abscess, tenosynovectomy of septic flexor digitorum longus tendon, I&D, medial foot wound dehiscence-- Dr Montaño -intra-op cultures - coag neg staph. 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 -Hospitalized 12/06 this stay with continued IV daptomycin and IV clindamycin (for anaerobic coveragePrevotella) -has since been seen by ID who recommends continuation of Dapto and changing Clinda to Invanz and treating x 6 weeks (from the day of recent surgery given Osteo). ABX THERAPY TO CONCLUDE 01/22 -did have PICC but patient removed? will need appropriate IV access with PICC or midline once plan of care determined -at this time, I am not certain that additional IV abx therapy will treat her infection and I am torn regarding the best course of action. She has primarily been on Daptomycin then Vancomycin and then back to Daptomycin Since August -multiple I&D's, tenosynovectomy's, and amputation of the first and second toes since February 2021 with multiple wound cultures (again, growing Enterobacter and Klebsiella initially, then MRSA and Prevotella) -Despite polymicrobial infection, she has been on antibiotics and I am not certain that additional antibiotics will "fix" this problem -Compliance may be playing a role here although patient reports she is taking medications as prescribed. In addition, she has been hospitalized off and on since August and antibiotics have definitely been given while in house -I have discussed this case in great detail with both patient, infectious disease, and orthopedics. -Could argue additional IV antibiotics X 6 weeks based on most recent culture data and instead of using oral Flagyl (which should have the same bioavailability), utilizing IV Invanz which may have better bone penetration. (For Prevotella) -I am not necessarily sure that additional daptomycin or vancomycin for that matter is appropriate. I would highly consider Dalvance which could be given 1500 mg on day #1 and #8. Unfortunately, this could not be given while in house. -Continue daptomycin for now. -Case management has looked into coverage on Dalvance and it would be covered by insurance -Lengthy discussion with patient and she is not necessarily on board with additional IV antibiotic therapy knowing that the end result may be BKA. She has been on IV antibiotics since August and she "wants to move on with her life and get rid of this infection". -Additionally, she now has some mild wound dehiscence over the medial malleolus -I have reached out to Ortho covering (Dr. Rushing) who will review case and her wound. In interim, we will repeat her MRI to further assess bone integrity -Patient has been seen by vascular and had full work-upsee below -was on Dilaudid SERVICE TECH but has since been transitioned to Percocet. (2) Osteomyelitis: Plan: - started [facility] Diabetic foot ulcer of right 1st and 2nd toe (03/02) following. Seen by orthopedics and referred to wound care at that time - Nonhealing wound which led to amputation of partial first and second toes. Pt reports compliance but there is reports that she wasn't following up with wound clinic - 11/24/21 MRI right foot -"chronic stable osteomyelitis involving the first and second metatarsals". - MRI 12/10 with similar 1st/2nd metatarsal findings in comparison to 11/24 MRI except for 2cm abscess (now s/p I&D done 12/11). - Although patient is s/p amputation of the first and second toes, she has residual osteomyelitis into the transmetatarsal. I did discuss with orthopedics potential transmetatarsal amputation; however, they believe that there is potential osteo near the medial malleoli are region which would require BKA. Again, as outlined above, ? failed IV abx therapy - has since been seen by infectious disease who is recommending 6 weeks of IV antibiotic (Start date following recent surgical intervention) which would conclude on 01/22 - personally, with review of recurrent hospitalization and multiple rounds of abx-- ? failed abx therapy vs noncompliance and reinfection of wound -At any rate, lengthy discussion with patient regarding limb salvage with 6 weeks of additional IV antibiotics. As outlined above, she is well aware that the end result may be a BKA she is now favoring that to "get rid of this infection and move on with her life" - PICC line removed (by patient). Would need another. Awaiting final deter mination regarding 6 weeks of IV antibiotics versus BKA (3) Diabetic foot infection: Plan: - on IV Dapto/Invanz (at recommendations of ID) to conclude 01/22 (4) Nausea & vomiting: Plan: -Patient presented to [facility] with nausea and vomiting -Prior provider thought perhaps secondary to metronidazole; however, patient reports that she was told to stop this medication and she was not taking it upon arrival. -Has had intermittent nausea without vomiting since this hospital stay. She does have underlying diabetes mellitus and perhaps gastroparesis. Will initiate Reglan and attempt a timed gastric emptying study -In addition, patient is noted to not be on anything for GI prophylaxis. She is on multiple antibiotics and Lovenox. We will add Pepcid for GI prophylaxis (5) Anemia: Plan: -Seems to have had post-op anemia following every surgery -seems to be at baseline (likely dilutional drop) -hgb stable (6) HTN (hypertension): Plan: -Controlled on lisinopril, metoprolol succinate, and prn hydralazine (7) Diabetes mellitus type 2, uncontrolled: Plan: -Hemoglobin A1c has been consistently above 10%. -DM NOT controlled (givne A1C >10%) but BS currently controlled at this time with lantus + novolog SSI -Lengthy discussion with patient regarding the importance of good glycemic control and how this affects wound healing (8) Anxiety: Plan: - Ongoing problem for patient - Taking Ativan at home which has been continued during this hospital stay. Need to use caution with coadministration of benzodiazepines and opiates - Vistaril added which seems to be more effective for patient. Encouraged staff to utilize this over the Ativan (9) DVT prophylaxis: Plan: Continue enoxaparin 40mg daily. Plan: There was mention that the patient was not able to have a PICC line. I did personally ask IV team about this and she had a PICC line that she removed. She is anatomically able to have additional PICC line if needed but needed to be 24 hours after the removal of the prior PICC line (whichthat has since passed) Above plan of care has been discussed in detail with Dr. Clemons Admission and Anticipated Discharge Date Admission Date: December 06, 2021 Subjective Patient seen on daily rounds today. Seen by Dr. Montaño yesterday and given vascular supply, plan was for trial of additional IV antibiotic therapy at attempt for limb salvage. Patient well aware that the end result may be BKA. She has slept on it overnight and is also aware that she has primarily been on antibiotics since August of this year. At this point, she has spoken to her and her children and done some research on the Internet. She is favoring a BKA to eradicate the infection and move on with her life. She hates to pursue an additional 6 weeks of IV antibiotic therapy when the end result may be a BKA. She is well aware that she has been on IV antibiotics up until this point and despite that, there has been limited improvement and persistent pain of her foot. In addition, the medial malleoli are incision is draining and has slightly dehisced. Review of Systems Review of Systems: All systems reviewed and are unremarkable except as noted in HPI and below Denies fevers, chills, headache, nasal congestion, sore throat, cough, chest pain, shortness of breath, palpitations, orthopnea, PND, abdominal pain, nausea, vomiting, diarrhea, constipation, dysuria, hematuria, frequency, back pain, easy bruising or bleeding, Physical Exam Physical Exam: General: Resting comfortably in her hospital bed. NAD. HEENT: Head is AT/NC. Buccal mucosa is moist and pink Neck: No JVD. Negative hepatojugular reflex Cardiac: RRR with 1/6 ROME Lungs: CTA without W/R/R Abdomen: Normoactive X4. Soft and nontender in all quadrants. Extremities: right foot: 1st and 2nd toes missing (from PRIOR amputation). Skin in this region is well healed. Incision over the right malleolus has slightly dehisced (directly over the ankle itself). Serosanguineous drainage noted. Surrounding area is erythematous. Neuro: A&O X4. Cranial nerves II through XII are grossly intact. No focal neuro deficits Skin: No obvious skin lesions or rashes Psych: Tearful at times. No acute distress Results & Data Results & Data ([facility]) Vital Signs (Past 12 Hours) Vital Signs Temp Pulse Resp BP Pulse Ox 12/17/21 07:44 36.8 C 100 H 18 129/75 95 12/16/21 22:00 36.7 C 85 20 159/81 H 98 Laboratory Results labs drawn (given appearance of the wound)-- pending PG Care Time/CCT Total # of Minutes Spent Total Time Spent with Patient: Total time spent is greater than 50% in coordination of care (as documented) at patient's floor/unit and/or counseling patient: Coding Level of Care Code 50970 Subseq Hosp Care Lvl 2 Diagnoses Abscess of right foot L02.611 Osteomyelitis M86.9 Laterality: right Osteomyelitis location: foot Osteomyelitis type: unspecified type Diabetic foot infection E11.628; L08.9 Nausea & vomiting R11.2 Vomiting type: unspecified Anemia D64.9 HTN (hypertension) I10 Diabetes mellitus type 2, uncontrolled E11.65 DVT prophylaxis Z29.9 Anxiety F41.9 (1) Osteomyelitis Laterality: right Osteomyelitis location: foot Osteomyelitis type: unspecified type Qualified Code(s): M86.9 - Osteomyelitis, unspecified (2) Nausea & vomiting Vomiting type: unspecified Qualified Code(s): R11.2 - Nausea with vomiting, unspecified
[2021-12-17 10:34] LABS: Basophils # (auto) 0.05 K/uL (0-0.2); Basophils % (auto) 0.5 %; Eosinophils # (auto) 0.81 K/uL (0-0.5); Eosinophils % (auto) 7.3 %; Hematocrit (blood only) 34.2 % (37-47); Hemoglobin 10.9 g/dL (12.0-16.0); Immature Granulocytes # (auto) 0.03 K/uL (0.00-0.02); Immature Granulocytes % (auto) 0.3 %; Lymphocytes # (auto) 2.69 K/uL (1.2-3.4); Lymphocytes % (auto) 24.2 %; Mean Corpuscular Hemoglobin 24.7 pg (25-34); Mean Corpuscular Volume 77.4 fL (80-100); Mean Platelet Volume 9.7 fL (7.4-10.4); Monocytes # (auto) 1.05 K/uL (0.11-0.59); Monocytes % (auto) 9.5 %; Neutrophils # (auto) 6.47 K/uL (1.4-6.5); Neutrophils % (auto) 58.2 %; Platelet Count 484 K/uL (130-400); RDW Standard Deviation 42.7 fL (36.4-46.3); Red Blood Count 4.42 M/uL (4.2-5.4)
[2021-12-17 10:39] LABS: Mean Corpuscular Hgb Conc 31.9 g/dL (32-36)
[2021-12-17] MEDS: FAMOTIDINE 20 MG TAB PO SCH ×2 (10:44→21:03)
[2021-12-17 10:56] LABS: Albumin Globulin Ratio 1.3 (0.9-2); Albumin Level 3.8 gm/dl (3.4-5.0); BUN Creatinine Ratio 16.7 (10-20); Bilirubin,Total 0.3 mg/dl (0.2-1.0); C Reactive Protein 1.66 mg/dl (0-0.5); Calcium 9.3 mg/dl (8.5-10.1); Creatinine Clr Calc Pharmacy 94.9 ml/min; Est GFR (African American) 117.3 ml/min; Est GFR (Non-African American) 101.2 ml/min; Potassium 4.3 mmol/L (3.5-5.1); Total Protein 6.8 gm/dl (6.0-8.3)
[2021-12-17] MEDS ORDERED: HYDROmorphone INJ 0.5 MG/0.5 ML SYR IV STA (12:08)
[2021-12-17] MEDS: METOCLOPRAMIDE HCL 5 MG TABLET PO SCH ×2 (12:23→15:20)
[2021-12-17] MEDS ORDERED: GADOBUTROL 65ML VIAL IV ONE (13:35)
--- NOTE | 2021-12-17 13:55 | Magnetic Resonance Report ---
MR lower leg RT wo/w con HISTORY: 56 years-old Female osteomyelitis, wound dehisance soft tissue wounds of the right lower le g and ankle. MRI foot and ankle 12/10/2021 COMPARISON: MRI right ankle of same day, MRI right foot and ankle 12/10/2021 TECHNIQUE: Multiplanar multisequence MRI of the right lower leg was obtained both with and without of 7 cc Gadavist FINDINGS: Motion degraded exam. Moderate diffuse edema with minimal enhancement is noted throughout the tibiali s posterior musculature extending along the neurovascular bundle. There is thickening of the distal t ibialis posterior tendon. No intramuscular abscess. Partially imaged soft tissue edema. Medial ankle. Normal bone marrow signal without acute fracture, dislocation, significant bone marrow edema or osse ous erosion. No destructive bone lesions. This study is not tailored to assess the intrinsic structur es of the knee or ankle. IMPRESSION: 1. Mildly motion degraded exam. No marrow edema or MRI evidence of acute osteomyelitis. 2. Moderate diffuse edema with minimal enhancement throughout the tibialis posterior musculature is s uggestive of myositis versus muscle strain. ACT 112: Negative or not required by law. The above report was generated using voice recognition software. It may contain grammatical, syntax o r spelling errors. Electronically signed by: Puneet Howard M.D. 12/17/2021 1:52 PM
[2021-12-17] MEDS: CYCLOBENZAPRINE HCL 10 MG TAB PO PRN (15:19)
[2021-12-17] MEDS: DAPTOmycin 500 MG in SYRINGE 0 ML IV SCH (15:20)
[2021-12-17] MEDS: ERTAPENEM SODIUM 1,000 MG in SYRINGE 0 ML IV SCH (15:20)
[2021-12-17] MEDS: INSULIN GLARGINE SOLOSTAR 100 UNITS/ML 3 ML PEN SQ SCH (21:01)
[2021-12-17] MEDS: ZOLPIDEM TARTRATE 10 MG TAB PO PRN (21:03)
[2021-12-17] MEDS: SENNA 8.6 MG TAB PO SCH (21:03)
[2021-12-17] MEDS: rOPINIRole HCL 2 MG TABLET PO SCH (21:03)
[2021-12-17] MEDS: NORTRIPTYLINE HCL 25 MG CAP PO SCH (21:03)
[2021-12-17] MEDS: MELATONIN 3 MG TAB PO PRN (22:33)
[2021-12-18] MEDS: oxyCODONE/ACETAMINOPHEN 5mg/325mg TAB PO PRN ×4 (02:34→23:06)
[2021-12-18] MEDS: HYDROmorphone INJ 1 MG/ML SYRINGE IV PRN ×5 (04:29→23:53)
[2021-12-18] MEDS: CYCLOBENZAPRINE HCL 10 MG TAB PO PRN (06:06)
[2021-12-18] MEDS: LORATADINE 10 MG TAB PO SCH (09:01)
[2021-12-18] MEDS: lisinopril 10 MG TAB PO SCH (09:01)
[2021-12-18] MEDS: MULTIVITAMIN TAB PO SCH (09:01)
[2021-12-18] MEDS: ADVANCED PROBIOTIC 1250 MG CAPSULE PO SCH (09:02)
[2021-12-18] MEDS: DOCUSATE SODIUM 100 MG CAP PO SCH ×2 (09:02→20:42)
[2021-12-18] MEDS: ENOXAPARIN INJ 40 MG/0.4 ML SYR SQ SCH (09:02)
[2021-12-18] MEDS: ASPIRIN 81 MG ECTAB PO SCH (09:02)
[2021-12-18] MEDS: METOPROLOL SUCC 50MG EXT REL TAB PO SCH (09:02)
[2021-12-18] MEDS: METOCLOPRAMIDE HCL 5 MG TABLET PO SCH ×3 (09:03→17:49)
[2021-12-18] MEDS: FAMOTIDINE 20 MG TAB PO SCH ×2 (09:03→20:42)
[2021-12-18] MEDS: INSULIN ASPART PER UNIT SC SCH ×4 (09:18→20:58)
--- NOTE | 2021-12-18 09:38 | Orthopedic Progress Note ---
Date of Service December 18, 2021 Assessment & Plan (1) Diabetic foot infection: Plan: POD #3 s/p 1. Right foot incision and drainage deep and medial abscess. 2. Tenosynovectomy of septic flexor digitorum longus tendon. 3. Irrigation and debridement, medial foot wound dehiscence measuring 2.5 x 1.0 x 0.9 cm including skin, subcutaneous tissue, dermis, fascia and periosteum continue with daily dressing changes Continue nonweightbearing on right lower extremity. Culture showing gram-positive cocci Continue antibiotic treatment. Discharge planninguncertain at this time. Plan: At this point in time Mariana is more accepting of amputation of the leg. I discussed this with Dr. Montaño who will reassess for possible surgical treatment this week. In the meantime we will continue antibiotics as per hospitalist Admission and Anticipated Discharge Date Admission Date: December 06, 2021 Subjective Mariana has complaints of continued pain, not well controlled in the right lower extremity Review of Systems Musculoskeletal: Dressing is clean and dry. She is able to wiggle her toes. Calves are soft Results & Data ([facility]) Vital Signs (Past 12 Hours) Vital Signs Temp Pulse Resp BP BP Pulse Ox 12/18/21 06:00 36.7 C 82 16 115/74 94 12/17/21 22:39 36.8 C 81 16 133/76 94
[2021-12-18] MEDS: ONDANSETRON INJ 2 MG/ML 2 ML VIAL IV PRN ×2 (11:34→22:06)
[2021-12-18] MEDS: hydrOXYzine HCl 25 MG TAB PO PRN (12:53)
[2021-12-18] MEDS: ERTAPENEM SODIUM 1,000 MG in SYRINGE 0 ML IV SCH (17:04)
[2021-12-18] MEDS: DAPTOmycin 500 MG in SYRINGE 0 ML IV SCH (17:04)
--- NOTE | 2021-12-18 17:56 | Hospitalist Progress Note ---
Date of Service December 18, 2021 Assessment & Plan (1) Abscess of right foot: Plan: -12/11: R foot I&D deep and medial abscess, tenosynovectomy of septic flexor digitorum longus tendon, I&D, medial foot wound dehiscence-- Dr Montaño -intra-op cultures - coag neg staph. 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 -Hospitalized 12/06 this stay with continued IV daptomycin and IV clindamycin (for anaerobic coveragePrevotella) -has since been seen by ID who recommends continuation of Dapto and changing Clinda to Invanz and treating x 6 weeks (from the day of recent surgery given Osteo). ABX THERAPY TO CONCLUDE 01/22 -did have PICC but patient removed? will need appropriate IV access with PICC or midline once plan of care determined -at this time, I am not certain that additional IV abx therapy will treat her infection and I am torn regarding the best course of action. She has primarily been on Daptomycin then Vancomycin and then back to Daptomycin Since August -multiple I&D's, tenosynovectomy's, and amputation of the first and second toes since February 2021 with multiple wound cultures (again, growing Enterobacter and Klebsiella initially, then MRSA and Prevotella) -Despite polymicrobial infection, she has been on antibiotics and I am not certain that additional antibiotics will "fix" this problem -Compliance may be playing a role here although patient reports she is taking medications as prescribed. In addition, she has been hospitalized off and on since August and antibiotics have definitely been given while in house -I have discussed this case in great detail with both patient, infectious disease, and orthopedics. -Could argue additional IV antibiotics X 6 weeks based on most recent culture data and instead of using oral Flagyl (which should have the same bioavailability), utilizing IV Invanz which may have better bone penetration. (For Prevotella) -I am not necessarily sure that additional daptomycin or vancomycin for that matter is appropriate. I would highly consider Dalvance which could be given 1500 mg on day #1 and #8. Unfortunately, this could not be given while in house. -Continue daptomycin for now. -Case management has looked into coverage on Dalvance and it would be covered by insurance -Lengthy discussion with patient and she is not necessarily on board with additional IV antibiotic therapy knowing that the end result may be BKA. She has been on IV antibiotics since August and she "wants to move on with her life and get rid of this infection". -Additionally, she now has some mild wound dehiscence over the medial malleolus -I have reached out to Ortho covering (Dr. Rushing) who will review case and her wound. In interim, we will repeat her MRI to further assess bone integrity -Patient has been seen by vascular and had full work-upsee below -was on Dilaudid [employer]CH[employer]IAN but has since been transitioned to Percocet. Patient coninues to require intermittent dosing of dilaudid with her percocet. (2) Osteomyelitis: Plan: - started [facility] Diabetic foot ulcer of right 1st and 2nd toe (03/02) following. Seen by orthopedics and referred to wound care at that time - Nonhealing wound which led to amputation of partial first and second toes. Pt reports compliance but there is reports that she wasn't following up with wound clinic - 11/24/21 MRI right foot -"chronic stable osteomyelitis involving the first and second metatarsals". - MRI 12/10 with similar 1st/2nd metatarsal findings in comparison to 11/24 MRI except for 2cm abscess (now s/p I&D done 12/11). - Although patient is s/p amputation of the first and second toes, she has residual osteomyelitis into the transmetatarsal. I did discuss with orthopedics potential transmetatarsal amputation; however, they believe that there is potential osteo near the medial malleoli are region which would require BKA. Again, as outlined above, ? failed IV abx therapy - has since been seen by infectious disease who is recommending 6 weeks of IV antibiotic (Start date following recent surgical intervention) which would co nclude on 01/22 - personally, with review of recurrent hospitalization and multiple rounds of abx-- ? failed abx therapy vs noncompliance and reinfection of wound -At any rate, lengthy discussion with patient regarding limb salvage with 6 weeks of additional IV antibiotics. As outlined above, she is well aware that the end result may be a BKA she is now favoring that to "get rid of this infection and move on with her life" - PICC line removed (by patient). Would need another. Awaiting final determination regarding 6 weeks of IV antibiotics versus BKA (3) Diabetic foot infection: Plan: - continue IV Dapto/Invanz (at recommendations of ID) to conclude 01/22 (4) Nausea & vomiting: Plan: -Patient presented to [facility] with nausea and vomiting -Prior provider thought perhaps secondary to metronidazole; however, patient reports that she was told to stop this medication and she was not taking it upon arrival. -Has had intermittent nausea without vomiting since this hospital stay. She does have underlying diabetes mellitus and perhaps gastroparesis. Will initiate Reglan -Patient refused gastric emptying study due to previous workup done by outside facility. -In addition, patient is noted to not be on anything for GI prophylaxis. She is on multiple antibiotics and Lovenox. We will add Pepcid for GI prophylaxis (5) Anemia: Plan: -Seems to have had post-op anemia following every surgery -seems to be at baseline (likely dilutional drop) -hgb stable (6) HTN (hypertension): Plan: -Controlled on lisinopril, metoprolol succinate, and prn hydralazine (7) Diabetes mellitus type 2, uncontrolled: Plan: -Hemoglobin A1c has been consistently above 10%. -DM NOT controlled (givne A1C >10%) but BS currently controlled at this time with lantus + novolog SSI -Lengthy discussion with patient regarding the importance of good glycemic control and how this affects wound healing (8) Anxiety: Plan: - Ongoing problem for patient - Taking Ativan at home which has been continued during this hospital stay. Need to use caution with coadministration of benzodiazepines and opiates - Vistaril added which seems to be more effective for patient. Encouraged staff to utilize this over the Ativan (9) DVT prophylaxis: Plan: Continue enoxaparin 40mg daily. Plan: There was mention that the patient was not able to have a PICC line. I did personally ask IV team about this and she had a PICC line that she removed. She is anatomically able to have additional PICC line if needed but needed to be 24 hours after the removal of the prior PICC line (whichthat has since passed) Above plan of care has been discussed in detail with Dr. Clemons Admission and Anticipated Discharge Date Admission Date: December 06, 2021 Subjective Patient reports no new symptoms. She reports that she has had gastroparesis worked up in the past over at [facility]. She states that she does not want to go through the workup of that and is refusing the test for tomorrow. She reports no significant nausea today, but continues to have foot pain. She continues to report that she would like to have her foot amputated. Review of Systems Review of Systems: All systems reviewed & are unremarkable except as noted in HPI & below Physical Exam Physical Exam: General: Resting comfortably in her hospital bed. NAD. HEENT: Head is AT/NC. Buccal mucosa is moist and pink Neck: No JVD. Negative hepatojugular reflex Cardiac: RRR without M/G/R Lungs: CTA without W/R/R Abdomen: Normoactive X4. Soft and nontender in all quadrants. Extremities: Right lower extremity with splint and Mikey wrap. Toes visible. No right great toe given prior amputation. Negative Homans' sign. Neuro: A&O X4. Cranial nerves II through XII are grossly intact. No focal neuro deficits Skin: No obvious skin lesions or rashes Psych: Appropriate affect. Pleasant and cooperative Results & Data Results & Data ([facility]) Vital Signs (Past 12 Hours) Vital Signs Temp Pulse Resp BP Pulse Ox 12/18/21 17:20 36.7 C 75 18 154/80 H 98 12/18/21 06:00 36.7 C 82 16 115/74 94 PG Care Time/CCT Total # of Minutes Spent Total Time Spent with Patient: Total time spent is greater than 50% in coordination of care (as documented) at patient's floor/unit and/or counseling patient: Coding Level of Care Code 06989 Subseq Hosp Care Lvl 3 Diagnoses Abscess of right foot L02.611 Osteomyelitis M86.9 Laterality: right Osteomyelitis location: foot Osteomyelitis type: unspecified type Diabetic foot infection E11.628; L08.9 Nausea & vomiting R11.2 Vomiting type: unspecified Anemia D64.9 HTN (hypertension) I10 Diabetes mellitus type 2, uncontrolled E11.65 Anxiety F41.9 DVT prophylaxis Z29.9 (1) Nausea & vomiting Vomiting type: unspecified Qualified Code(s): R11.2 - Nausea with vomiting, unspecified (2) Osteomyelitis Laterality: right Osteomyelitis location: foot Osteomyelitis type: unspecified type Qualified Code(s): M86.9 - Osteomyelitis, unspecified
[2021-12-18] MEDS: NORTRIPTYLINE HCL 25 MG CAP PO SCH (20:43)
[2021-12-18] MEDS: SENNA 8.6 MG TAB PO SCH (20:43)
[2021-12-18] MEDS: rOPINIRole HCL 2 MG TABLET PO SCH (20:43)
[2021-12-18] MEDS: INSULIN GLARGINE SOLOSTAR 100 UNITS/ML 3 ML PEN SQ SCH (20:58)
[2021-12-18] MEDS: LORazepam 1 MG TAB PO PRN (22:06)
[2021-12-18] MEDS: ZOLPIDEM TARTRATE 10 MG TAB PO PRN (22:06)
[2021-12-19] MEDS: HYDROmorphone INJ 1 MG/ML SYRINGE IV PRN ×6 (04:08→20:57)
[2021-12-19] MEDS: oxyCODONE/ACETAMINOPHEN 5mg/325mg TAB PO PRN ×2 (05:54→11:13)
[2021-12-19] MEDS: CYCLOBENZAPRINE HCL 10 MG TAB PO PRN (05:54)
[2021-12-19] MEDS: hydrOXYzine HCl 25 MG TAB PO PRN (05:54)
[2021-12-19 06:25] LABS: Creatinine Clr Calc Pharmacy 107.4 ml/min; Est GFR (African American) 122.2 ml/min; Est GFR (Non-African American) 105.4 ml/min
[2021-12-19] MEDS: INSULIN ASPART PER UNIT SC SCH ×4 (08:34→21:00)
[2021-12-19] MEDS: ADVANCED PROBIOTIC 1250 MG CAPSULE PO SCH (08:35)
[2021-12-19] MEDS: lisinopril 10 MG TAB PO SCH (08:35)
[2021-12-19] MEDS: DOCUSATE SODIUM 100 MG CAP PO SCH ×2 (08:35→20:57)
[2021-12-19] MEDS: MULTIVITAMIN TAB PO SCH (08:35)
[2021-12-19] MEDS: FAMOTIDINE 20 MG TAB PO SCH ×2 (08:35→20:57)
[2021-12-19] MEDS: LORATADINE 10 MG TAB PO SCH (08:36)
[2021-12-19] MEDS: ENOXAPARIN INJ 40 MG/0.4 ML SYR SQ SCH (08:36)
[2021-12-19] MEDS: METOCLOPRAMIDE HCL 5 MG TABLET PO SCH ×3 (08:36→17:06)
[2021-12-19] MEDS: METOPROLOL SUCC 50MG EXT REL TAB PO SCH (08:36)
[2021-12-19] MEDS: ASPIRIN 81 MG ECTAB PO SCH (08:36)
--- NOTE | 2021-12-19 09:27 | Magnetic Resonance Report ---
MR foot RT wo/w con, MR ankle RT wo/w con HISTORY: 56 years-old Female osteomyelitis, wound dehisance chronic pain of the right foot and ankle COMPARISON: Right foot and ankle MRI 12/10/2021 TECHNIQUE: Multiplanar multisequence MRI of the right foot and ankle was obtained both with and witho ut the use of 7 cc Gadavist. FINDINGS: Motion degraded exam. FOOT: Postoperative changes of the forefoot are redemonstrated with partial amputation of the first and sec ond digits at the level of the metatarsal head neck junctions. Micrometallic artifact within this dis tribution limits the study. There is unchanged cortical thickening and irregularity with decreased T1 and increased T2 marrow signal notably present involving the first metatarsal. There are no new site s of bony destruction or significant marrow edema identified. There is diffuse intramuscular and subc utaneous edema with associated enhancement, most pronounced in the plantar tissues. The degree of sof t tissue edema has worsened. There is a peripherally enhancing collection within the deep soft tissue s of the plantar midfoot and ankle, superficial to the navicular cuneiform articulation as described on the ankle MRI study. Again, this is at least partially intramuscular. No new ligamentous or tendon injury identified. 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 There is a peripherally enhanc ing large wound of the medial hindfoot and hindfoot midfoot junction with more discrete margins now m easuring approximately 8.0 x 3.1 cm on image 20 of series 6. This has mildly increased in size from t he prior study when measured in a similar fashion. There is diffuse intramuscular and soft tissue lars ma with associated enhancement, progressed from the prior exam. Tenosynovitis of the flexor digitorum longus. Mild diffuse nonspecific marrow edema throughout the hindfoot, midfoot and medial malleolus. No new sites of osseous erosion identified. IMPRESSION: 1. The patient has had multiple (15) MRI studies of the right lower extremity dating back to July 2021. Again noted are postoperative changes of the foot and ankle with partial resection of the firs t and second digits. There is unchanged cortical thickening involving the distal aspects of the first and second metatarsals at the amputation stumps with first metatarsal marrow changes again suggestiv e of osteomyelitis. No new sites of osteomyelitis are identified since the study obtained 7 days twin ier. 2. Large open wound of the medial hindfoot and midfoot junction is redemonstrated with a peripherally enhancing fluid collection suggestive of a probable abscess. This has mildly increased in size. 3. Diffuse myositis with cellulitis, also progressed from the prior study. 4. Mild marrow edema throughout the midfoot, hindfoot and medial malleolus may represent reactive ost eitis. Developing osteomyelitis of the medial malleolus would be difficult to exclude. ACT 112: Negative or not required by law. The above report was generated using voice recognition software. It may contain grammatical, syntax o r spelling errors. Electronically signed by: Puneet Howard M.D. 12/17/2021 3:24 PM
[2021-12-19] MEDS: LORazepam 1 MG TAB PO PRN (11:23)
--- NOTE | 2021-12-19 14:34 | Hospitalist Progress Note ---
Date of Service December 19, 2021 Assessment & Plan (1) Abscess of right foot: Plan: -12/11: R foot I&D deep and medial abscess, tenosynovectomy of septic flexor digitorum longus tendon, I&D, medial foot wound dehiscence-- Dr Montaño -intra-op cultures - coag neg staph.--> Sensitivities now available and resistant to clindamycin. 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 -Hospitalized 12/06 this stay with continued IV daptomycin and IV clindamycin (for anaerobic coveragePrevotella) which has subsequently been changed to Dapto/Invanz at recommendations of infectious disease -ID recommends 6 weeks of IV antibiotics from most recent surgical procedure- ABX THERAPY TO CONCLUDE 01/22 -did have PICC but patient removed? will need appropriate IV access with PICC or midline once plan of care determined Has been receiving IV antibiotics now with wound dehiscence for which repeat MRI obtained showing concern for medial malleoli or osteomyelitis and persistent abscess near the hindfoot At this point, patient has failed IV antibiotics and plan is for BKA. Spoke with Dr. Montaño who is planning on doing this Thursday 12/21. Patient has obviously been reluctant up until this point but is agreeable Initially on Dilaudid TRESTLE BUILDER pump. Since transitioned to Percocet with Dilaudid for breakthrough pain. Primarily getting Percocet and Dilaudid both. At this time, DC oral pain regimen and utilize Dilaudid. Reevaluate pain post amputation. May need to consider pain management consult (2) Osteomyelitis: Plan: Complicated course: Started [facility] Diabetic foot ulcer of right 1st and 2nd toe (03/02) following. Seen by orthopedics and referred to wound care at that time Has been hospitalized off and on since 03/02 and primarily on IV antibiotics si nce 09/03 (initially oral Augmentin and then daptomycin, vancomycin, daptomycin + Flagyl, IV clindamycin + daptomycin, currently daptomycin + Invanz) S/p partial amputation of the first and second toes S/p multiple I&D's, tenosynovectomy's Despite multiple debridements and IV antibiotics, there is progression of her infection which now appears to be involving the medial malleolus with additional abscess formation in the hindfoot Has been seen by vascular: Arterial duplex followed by CT angiogram with runoff. Seen by vascular medicine 09/07/2021 who reports arterial supply ad equate to heal surgical wounds (3) Diabetic foot infection: Plan: - continue IV Dapto/Invanz (at recommendations of ID) but plan is for BKA thus following removal of infected bone, can likely DC all antibiotics (4) Nausea & vomiting: Plan: -Patient presented to [facility] with nausea and vomiting -Prior provider thought perhaps secondary to metronidazole; however, patient reports that she was told to stop this medication and she was not taking it upon arrival. -Has had intermittent nausea without vomiting since this hospital stay. She does have underlying diabetes mellitus and perhaps gastroparesis. Now on Reglanhelping -Patient refused gastric emptying study due to previous workup done by outside facility. -In addition, patient is noted to not be on anything for GI prophylaxis. She is on multiple antibiotics and Lovenox. Now on Pepcid for GI prophylaxis (5) Anemia: Plan: -Seems to have had post-op anemia following every surgery -seems to be at baseline (likely dilutional drop) -hgb stable (6) HTN (hypertension): Plan: -Controlled on lisinopril, metoprolol succinate, and prn hydralazine (7) Diabetes mellitus type 2, uncontrolled: Plan: -Hemoglobin A1c has been consistently above 10%. -DM NOT controlled (givne A1C >10%) but BS currently controlled at this time with lantus + novolog SSI -Lengthy discussion with patient regarding the importance of good glycemic control and how this affects wound healing (8) Anxiety: Plan: - Ongoing problem for patient - Taking Ativan at home which has been continued during this hospital stay. Need to use caution with coadministration of benzodiazepines and opiates - Vistaril added which seems to be more effective for patient. Encouraged staff to utilize this over the Ativan (9) DVT prophylaxis: Plan: Continue enoxaparin 40mg daily. Plan: There was mention that the patient was not able to have a PICC line. I did personally ask IV team about this and she had a PICC line that she removed. She is anatomically able to have additional PICC line if needed but needed to be 24 hours after the removal of the prior PICC line (whichthat has since passed) but unlikely needed given plan for BKA Above plan of care has been discussed in detail with Dr. Hernadez Admission and Anticipated Discharge Date Admission Date: December 06, 2021 Subjective Patient seen on daily rounds today. Vocalizes persistent pain of the right lower extremity. Utilizing Percocet but reports "this is ineffective". "The only thing that helps is Dilaudid". Reports Dilaudid effective but not lasting the full 3 hours. Still with intermittent nausea but much better since being started on Reglan. Was to have a time gastric emptying study today but declined. Reports that she had this done at [facility] in the past Review of Systems Review of Systems: All systems reviewed and are unremarkable except as noted in HPI and below Denies fevers, chills, headache, nasal congestion, sore throat, cough, chest pain, shortness of breath, palpitations, orthopnea, PND, abdominal pain, nausea, vomiting, diarrhea, constipation, dysuria, hematuria, frequency, back pain, easy bruising or bleeding, Physical Exam Physical Exam: General: Resting comfortably in her hospital bed. NAD. HEENT: Head is AT/NC. Buccal mucosa is moist and pink Neck: No JVD. Negative hepatojugular reflex Cardiac: RRR with 1/6 ROME Lungs: CTA without W/R/R Abdomen: Normoactive X4. Soft and nontender in all quadrants. Extremities: right foot: 1st and 2nd toes missing (from PRIOR amputation). Skin in this region is well healed. Incision over the right malleolus has slightly dehisced (directly over the ankle itself). Serosanguineous drainage noted. Surrounding area is erythematous. Neuro: A&O X4. Cranial nerves II through XII are grossly intact. No focal neuro deficits Skin: No obvious skin lesions or rashes Psych: Tearful at times. No acute distress Results & Data Results & Data ([facility]) Vital Signs (Past 12 Hours) Vital Signs Temp Pulse Resp BP Pulse Ox 12/19/21 11:25 80 163/80 H 12/19/21 07:49 36.9 C 83 16 167/83 H 97 PG Care Time/CCT Total # of Minutes Spent Total Time Spent with Patient: Total time spent is greater than 50% in coordination of care (as documented) at patient's floor/unit and/or counseling patient: Coding Level of Care Code 45781 Subseq Hosp Care Lvl 2 Diagnoses Abscess of right foot L02.611 Osteomyelitis M86.9 Laterality: right Osteomyelitis location: foot Osteomyelitis type: unspecified type Diabetic foot infection E11.628; L08.9 Nausea & vomiting R11.2 Vomiting type: unspecified Anemia D64.9 HTN (hypertension) I10 Diabetes mellitus type 2, uncontrolled E11.65 Anxiety F41.9 DVT prophylaxis Z29.9 (1) Nausea & vomiting Vomiting type: unspecified Qualified Code(s): R11.2 - Nausea with vomiting, unspecified (2) Osteomyelitis Laterality: right Osteomyelitis location: foot Osteomyelitis type: unspecified type Qualified Code(s): M86.9 - Osteomyelitis, unspecified
[2021-12-19] MEDS: ERTAPENEM SODIUM 1,000 MG in SYRINGE 0 ML IV SCH (17:05)
[2021-12-19] MEDS: DAPTOmycin 500 MG in SYRINGE 0 ML IV SCH (17:05)
[2021-12-19] MEDS: rOPINIRole HCL 2 MG TABLET PO SCH (20:57)
[2021-12-19] MEDS: SENNA 8.6 MG TAB PO SCH (20:57)
[2021-12-19] MEDS: NORTRIPTYLINE HCL 25 MG CAP PO SCH (20:57)
[2021-12-19] MEDS: INSULIN GLARGINE SOLOSTAR 100 UNITS/ML 3 ML PEN SQ SCH (21:00)
[2021-12-19] MEDS: ZOLPIDEM TARTRATE 10 MG TAB PO PRN (21:37)
[2021-12-20] MEDS: HYDROmorphone INJ 1 MG/ML SYRINGE IV PRN ×9 (00:24→23:50)
[2021-12-20] MEDS: LORazepam 1 MG TAB PO PRN ×2 (05:15→21:12)
[2021-12-20 06:38] LABS: Basophils # (auto) 0.03 K/uL (0-0.2); Basophils % (auto) 0.3 %; Eosinophils # (auto) 0.75 K/uL (0-0.5); Hematocrit (blood only) 35.6 % (37-47); Hemoglobin 11.2 g/dL (12.0-16.0); Immature Granulocytes # (auto) 0.03 K/uL (0.00-0.02); Immature Granulocytes % (auto) 0.3 %; Lymphocytes # (auto) 2.44 K/uL (1.2-3.4); Lymphocytes % (auto) 26.1 %; Mean Corpuscular Hemoglobin 24.5 pg (25-34); Mean Corpuscular Hgb Conc 31.5 g/dL (32-36); Mean Corpuscular Volume 77.7 fL (80-100); Mean Platelet Volume 9.3 fL (7.4-10.4); Monocytes % (auto) 11.8 %; Neutrophils # (auto) 4.99 K/uL (1.4-6.5); Neutrophils % (auto) 53.5 %; Platelet Count 448 K/uL (130-400); RDW Coefficient of Variation 14.9 % (11.5-14.5); RDW Standard Deviation 42.6 fL (36.4-46.3); Red Blood Count 4.58 M/uL (4.2-5.4); White Blood Count 9.34 K/uL (4.8-10.8)
[2021-12-20 06:54] LABS: Albumin Globulin Ratio 1.5 (0.9-2); BUN Creatinine Ratio 26.1 (10-20); Bilirubin,Total 0.2 mg/dl (0.2-1.0); C Reactive Protein 0.57 mg/dl (0-0.5); Calcium 9.1 mg/dl (8.5-10.1); Creatinine Clr Calc Pharmacy 123.8 ml/min; Est GFR (Non-African American) 110.4 ml/min; Globulin 2.7 gm/dl (2.5-4.0); Magnesium 1.7 mg/dl (1.7-2.4); Potassium 4.1 mmol/L (3.5-5.1); Total Protein 6.7 gm/dl (6.0-8.3)
[2021-12-20] MEDS: METOCLOPRAMIDE HCL 5 MG TABLET PO SCH ×3 (07:39→16:15)
[2021-12-20] MEDS: DOCUSATE SODIUM 100 MG CAP PO SCH ×2 (08:46→21:02)
[2021-12-20] MEDS: ASPIRIN 81 MG ECTAB PO SCH (08:46)
[2021-12-20] MEDS: lisinopril 10 MG TAB PO SCH (08:47)
[2021-12-20] MEDS: FAMOTIDINE 20 MG TAB PO SCH ×2 (08:47→21:02)
[2021-12-20] MEDS: ADVANCED PROBIOTIC 1250 MG CAPSULE PO SCH (08:47)
[2021-12-20] MEDS: LORATADINE 10 MG TAB PO SCH (08:48)
[2021-12-20] MEDS: MULTIVITAMIN TAB PO SCH (08:48)
[2021-12-20] MEDS: METOPROLOL SUCC 50MG EXT REL TAB PO SCH (08:48)
[2021-12-20] MEDS: ENOXAPARIN INJ 40 MG/0.4 ML SYR SQ SCH (08:49)
[2021-12-20] MEDS: INSULIN ASPART PER UNIT SC SCH ×4 (08:55→21:03)
[2021-12-20] MEDS: CYCLOBENZAPRINE HCL 10 MG TAB PO PRN (08:56)
--- NOTE | 2021-12-20 09:46 | Hospitalist Progress Note ---
Date of Service December 20, 2021 Assessment & Plan (1) Abscess of right foot: Plan: -12/11: R foot I&D deep and medial abscess, tenosynovectomy of septic flexor digitorum longus tendon, I&D, medial foot wound dehiscence-- Dr Montaño -intra-op cultures - coag neg staph.--> Sensitivities now available and resistant to clindamycin. 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 -Hospitalized 12/06 this stay with continued IV daptomycin and IV clindamycin (for anaerobic coveragePrevotella) which has subsequently been changed to Dapto/Invanz at recommendations of infectious disease -ID recommends 6 weeks of IV antibiotics from most recent surgical procedure- ABX THERAPY TO CONCLUDE 01/22 -did have PICC but patient removed? will need appropriate IV access with PICC or midline once plan of care determined Has been receiving IV antibiotics now with wound dehiscence for which repeat MRI obtained showing concern for medial malleoli or osteomyelitis and persistent abscess near the hindfoot At this point, patient has failed IV antibiotics and plan is for BKA. Spoke with Ortho who is planning on doing this possibly Thursday 12/21. Patient has obviously been reluctant up until this point but is agreeable. 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 Since transitioned to Percocet with Dilaudid for breakthrough pain. Primarily getting Percocet and Dilaudid both. At this time, DC oral pain regimen and utilize Dilaudid. Reevaluate pain post amputation. May need to consider pain management consult. Would consider transition to oral opiates with down taper (2) Opiate dependence: Plan: - patient has been on opiate medication since this started in January. - has since developed tachyphylaxis -Lengthy discussion with patient regarding opioid dependence. Would recommend transition to oral pain medication (postsurgery) with plan to down taper. This was discussed with patient and she is agreeable (3) Osteomyelitis: Plan: Complicated course: Started [facility] Diabetic foot ulcer of right 1st and 2nd toe (03/02) following. Seen by orthopedics and referred to wound care at that time Has been hospitalized off and on since 03/02 and primarily on IV antibiotics since 09/03 (initially oral Augmentin and then daptomycin, vancomycin, daptomycin + Flagyl, IV clindamycin + daptomycin, currently daptomycin + Invanz) S/p partial amputation of the first and second toes S/p multiple I&D's, tenosynovectomy's Despite multiple debridements and IV antibiotics, there is progression of her infection which now appears to be involving the medial malleolus with additional abscess formation in the hindfoot Has been seen by vascular: Arterial duplex followed by CT angiogram with runoff. Seen by vascular medicine 09/07/2021 who reports arterial supply adequ ate to heal surgical wounds (4) Diabetic foot infection: Plan: - continue IV Dapto/Invanz (at recommendations of ID) but plan is for BKA thus following removal of infected bone, can likely DC all antibiotics (5) Nausea & vomiting: Plan: -Patient presented to [facility] with nausea and vomiting -Prior provider thought perhaps secondary to metronidazole; however, patient reports that she was told to stop this medication and she was not taking it upon arrival. -Has had intermittent nausea without vomiting since this hospital stay. She does have underlying diabetes mellitus and perhaps gastroparesis. Now on Reglanhelping -Patient refused gastric emptying study due to previous workup done by outside facility. -In addition, patient is noted to not be on anything for GI prophylaxis. She is on multiple antibiotics and Lovenox. Now on Pepcid for GI prophylaxis (6) Anemia: Plan: -Seems to have had post-op anemia following every surgery -seems to be at baseline (likely dilutional drop) -hgb stable (7) HTN (hypertension): Plan: -Controlled on lisinopril, metoprolol succinate, and prn hydralazine (8) Diabetes mellitus type 2, uncontrolled: Plan: -Hemoglobin A1c has been consistently above 10%. -DM NOT controlled (givne A1C >10%) but BS currently controlled at this time with lantus + novolog SSI -Lengthy discussion with patient regarding the importance of good glycemic control and how this affects wound healing (9) Anxiety: Plan: - Ongoing problem for patient - Taking Ativan at home which has been continued during this hospital stay. Need to use caution with coadministration of benzodiazepines and opiates - Vistaril added which seems to be more effective for patient. Encouraged staff to utilize this over the Ativan (10) DVT prophylaxis: Plan: Continue enoxaparin 40mg daily. Plan: There was mention that the patient was not able to have a PICC line. I did personally ask IV team about this and she had a PICC line that she removed. She is anatomically able to have additional PICC line if needed but needed to be 24 hours after the removal of the prior PICC line (whichthat has since passed) but unlikely needed given plan for BKA Above plan of care has been discussed in detail with Dr. Hernadez Admission and Anticipated Discharge Date Admission Date: December 06, 2021 Subjective Patient seen on daily rounds today. Vocalizes persistent pain of the right lower extremity. Utilizing Percocet but reports "this is ineffective". "The only thing that helps is Dilaudid". Reports Dilaudid effective but not lasting the full 3 hours. Still with intermittent nausea but much better since being started on Reglan. Was to have a time gastric emptying study today but declined. Reports that she had this done at [facility] in the past Review of Systems Review of Systems: All systems reviewed and are unremarkable except as noted in HPI and below Denies fevers, chills, headache, nasal congestion, sore throat, cough, chest pain, shortness of breath, palpitations, orthopnea, PND, abdominal pain, nausea, vomiting, diarrhea, constipation, dysuria, hematuria, frequency, back pain, easy bruising or bleeding, Physical Exam Physical Exam: General: Resting comfortably in her hospital bed. NAD. HEENT: Head is AT/NC. Buccal mucosa is moist and pink Neck: No JVD. Negative hepatojugular reflex Cardiac: RRR with 1/6 ROME Lungs: CTA without W/R/R Abdomen: Normoactive X4. Soft and nontender in all quadrants. Extremities: right foot: 1st and 2nd toes missing (from PRIOR amputation). Skin in this region is well healed. Incision over the right malleolus has slightly dehisced (directly over the ankle itself). Serosanguineous drainage noted. Surrounding area is erythematous. Neuro: A&O X4. Cranial nerves II through XII are grossly intact. No focal neuro deficits Skin: No obvious skin lesions or rashes Psych: Tearful at times. No acute distress Results & Data Results & Data ([facility]) Vital Signs (Past 12 Hours) Vital Signs Temp Pulse Pulse Resp BP Pulse Ox 12/20/21 08:44 80 163/84 H 12/20/21 07:08 36.6 C 82 16 160/83 H 97 12/19/21 22:56 36.7 C 77 18 168/77 H 97 Laboratory Results 12/20/21 06:03 12/20/21 06:03 PG Care Time/CCT Total # of Minutes Spent Total Time Spent with Patient: Total time spent is greater than 50% in coordination of care (as documented) at patient's floor/unit and/or counseling patient: Coding Level of Care Code 20307 Subseq Hosp Care Lvl 2 Diagnoses Abscess of right foot L02.611 Osteomyelitis M86.9 Laterality: right Osteomyelitis location: foot Osteomyelitis type: unspecified type Diabetic foot infection E11.628; L08.9 Nausea & vomiting R11.2 Vomiting type: unspecified Anemia D64.9 HTN (hypertension) I10 Diabetes mellitus type 2, uncontrolled E11.65 Anxiety F41.9 DVT prophylaxis Z29.9 Opiate dependence F11.20 (1) Nausea & vomiting Vomiting type: unspecified Qualified Code(s): R11.2 - Nausea with vomiting, unspecified (2) Osteomyelitis Laterality: right Osteomyelitis location: foot Osteomyelitis type: u nspecified type Qualified Code(s): M86.9 - Osteomyelitis, unspecified
[2021-12-20] MEDS: hydrOXYzine HCl 25 MG TAB PO PRN (12:42)
--- NOTE | 2021-12-20 14:19 | Communication Note ---
Date of Service: December 20, 2021 Patient seen this afternoon. No new complaints. I had spoken to Dr. Montaño about her pending surgery. He said at the earliest he may be able do it . Patient currently stating that if he is unable to do it tomorrow, that she will likely sign herself out or be discharged on antibiotics. We discussed options however the patient has responsibilities at home that they are having difficulty maintaining. Dressings were changed. Wound continues to have some dehiscence and mild to moderate serous drainage. Mild area of yellow slough in the central portion. Wounds redressed. Patient made n.p.o. after midnight for possible BKA tomorrow. Will await to hear from Dr. Montaño on his availability.
[2021-12-20] MEDS: DAPTOmycin 500 MG in SYRINGE 0 ML IV SCH (15:57)
[2021-12-20] MEDS: ERTAPENEM SODIUM 1,000 MG in SYRINGE 0 ML IV SCH (16:01)
[2021-12-20] MEDS: NORTRIPTYLINE HCL 25 MG CAP PO SCH (21:02)
[2021-12-20] MEDS: SENNA 8.6 MG TAB PO SCH (21:02)
[2021-12-20] MEDS: rOPINIRole HCL 2 MG TABLET PO SCH (21:02)
[2021-12-20] MEDS: INSULIN GLARGINE SOLOSTAR 100 UNITS/ML 3 ML PEN SQ SCH (21:03)
[2021-12-21] MEDS: HYDROmorphone INJ 1 MG/ML SYRINGE IV PRN ×8 (02:26→21:49)
[2021-12-21] MEDS: hydrOXYzine HCl 25 MG TAB PO PRN ×2 (05:51→22:56)
[2021-12-21] MEDS: ONDANSETRON INJ 2 MG/ML 2 ML VIAL IV PRN (06:58)
[2021-12-21] MEDS: METOCLOPRAMIDE HCL 5 MG TABLET PO SCH ×3 (07:33→17:01)
[2021-12-21] MEDS: ASPIRIN 81 MG ECTAB PO SCH (08:25)
[2021-12-21] MEDS: FAMOTIDINE 20 MG TAB PO SCH ×2 (08:26→21:13)
[2021-12-21] MEDS: DOCUSATE SODIUM 100 MG CAP PO SCH ×2 (08:26→21:13)
[2021-12-21] MEDS: ADVANCED PROBIOTIC 1250 MG CAPSULE PO SCH (08:27)
[2021-12-21] MEDS: lisinopril 10 MG TAB PO SCH (08:27)
[2021-12-21] MEDS: MULTIVITAMIN TAB PO SCH (08:28)
[2021-12-21] MEDS: METOPROLOL SUCC 50MG EXT REL TAB PO SCH (08:28)
[2021-12-21] MEDS: LORATADINE 10 MG TAB PO SCH (08:28)
[2021-12-21 08:54] LABS: Creatinine Clr Calc Pharmacy 118.6 ml/min; Est GFR (African American) 126.2 ml/min; Est GFR (Non-African American) 108.9 ml/min
[2021-12-21] MEDS: INSULIN ASPART PER UNIT SC SCH ×4 (09:13→21:08)
[2021-12-21] MEDS: CYCLOBENZAPRINE HCL 10 MG TAB PO PRN (09:19)
--- NOTE | 2021-12-21 09:36 | Surgery Consultation ---
Date of Consultation December 21, 2021 Assessment & Plan (1) Abscess of right foot: We will proceed with a right BK amputation tomorrow risk and complication of the procedure were explained to her including bleeding infection failure to heal anticipated recovery time and anticipated time before she is able to get a prosthesis she is in agreement and would like to proceed accordingly All question answered She is on the operating room schedule for tomorrow and we will obtain the surgical permit tomorrow History of Present Illness Attending Physician: Ricardo Hernadez History of Present Illness Persistent ostial right foot Patient states approximately a year ago she sustained a bug bite in the right second toe and has had 3 or 4 different procedures with amputation further amputation and the most recent the infectious process is extended down to the bottom of the foot and the calcaneus area with the most recent MRI showed diffuse ostial inflammatory changes of edema on the right foot the patient has been scheduled for right BK amputation by Dr. Montaño apparently he is away now when I was asked to see her and proceed with an amputation of the right below the knee Allergies Allergy/AdvReac Type Severity Reaction Status Date / Time morphine Allergy Severe blisters Verified 12/03/21 20:36 in mouth Sulfa (Sulfonamide Allergy Severe rash/swelli Verified 12/03/21 20:36 Antibiotics) ng iron [From Venofer] Allergy Intermediate Hypertensio Verified 12/03/21 20:36 n vancomycin Allergy Intermediate YULIYA Verified 12/03/21 20:36 SYNDROME---CAN TAKE IF VERY SLOW DRIP. amoxicillin [From Augmentin] Allergy Mild itching/power Verified 12/03/21 20:36 h clavulanic acid Allergy Mild itching/power Verified 12/03/21 20:36 [From Augmentin] h Home Medications Medication Instructions Recorded Confirmed Type nortriptyline 50 mg capsule 100 mg PO HS 10/19/20 12/06/21 History (Pamelor) ropinirole 2 mg tablet 4 mg PO HS 10/19/20 12/06/21 History lancets (OneTouch UltraSoft #100 ea 11/12/20 11/24/21 History Lancets) albuterol sulfate 90 mcg/actuation 1 puff INHALATION QID PRN 03/05/21 12/06/21 History aerosol inhaler (Proventil HFA) metoprolol succinate 50 mg 50 mg PO QAM 03/05/21 12/06/21 History tablet,extended release 24 hr (Toprol XL) insulin glargine 100 unit/mL (3 15 unit SUBCUT HS #1 ml 08/18/21 12/06/21 Rx mL) subcutaneous pen (Basaglar KwikPen U-100 Insulin) insulin lispro 100 unit/mL 3 unit SUBCUT TIDM #1 ml 08/18/21 12/06/21 Rx subcutaneous pen (Humalog KwikPen (U-100) Insulin) aspirin 81 mg tablet,delayed 81 mg PO BID #60 tab 10/04/21 12/06/21 Rx release (Aspirin Low Dose) lisinopril 10 mg tablet 10 mg PO QAM #30 tab 10/04/21 12/06/21 Rx lorazepam 1 mg tablet (Ativan) 1 mg PO TID PRN 11/04/21 12/06/21 History cyclobenzaprine 10 mg tablet 10 mg PO BID tab 11/24/21 12/06/21 History zolpidem 12.5 mg tablet,extended 12.5 mg PO DAILY 11/29/21 12/06/21 History release,multiphase daptomycin 500 mg intravenous 1 dose NOT APPLICABLE UD #1 ea 12/01/21 12/06/21 Rx solution (Cubicin) metronidazole 500 mg tablet 500 mg PO TID 28 Days #84 tab 12/01/21 12/06/21 Rx metformin 500 mg tablet,extended 1,000 mg PO DAILY 12/06/21 History release 24 hr oxycodone-acetaminophen 5 mg-325 1 tab PO Q8 PRN 12/06/21 12/06/21 History mg tablet (Percocet) Patient History Medical History 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 No issues per anesthesia postop progress note. Anemia Cellulitis Chronic back pain Depression Diabetic peripheral neuropathy DM2 (diabetes mellitus, type 2) IDDM, A1c 07/2021-11% Gastritis GIB (gastrointestinal bleeding) History of amputation of great toe Hyperlipidemia Insulin dependent diabetes mellitus Iron deficiency anemia Nonobstructive atherosclerosis of coronary artery Numbness of lower extremity Peripheral neuropathy Right second toe ulcer Seizures Surgical History History of cardiac cath done at [facility]; 09/22/19; LM - mild luminal irregularities. LAD - mid 20-30%, distal with myocardial bridge & 30% stenosis. L Cx - mild luminal irregularities. RCA - proximal <30% stenosis; mid/distal vessel mild plaques. PDA - mild luminal irregularities. History of esophagogastroduodenoscopy (EGD) Family History Mother , age 63 Myocardial infarction Father , age 68 or 69 Myocardial infarction Brother S/P CABG (coronary artery bypass graft) Sister Myocardial infarction x 3; she is 57yo Social History Smoking Status: Former smoker Tobacco Type: Cigarettes packs per day: 0.5; Years Smoked: 20; Cigarettes Per Day: 20; Second Hand Exposure: No; Do You Dip or Chew Tobacco: No; Tobacco Cessation Education Requested by Patient: No Hx Alcohol Use: No Hx Substance Use: No Preferred Language: Faroese Communication Ability: Effective Visual Impairment: No Limitations Hearing Ability: Normal Charger Required: No Beliefs That Will Affect Care: None marital status: Current Living Situation: Spouse and Family current occupational status: unemployed 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 other: raising a grandchild as well; [place] Feels Safe at Home: Yes Safety Concerns: Feels Safe At This Time during the past year weight has: remained stable Assistive Devices: Walker Review of Systems Review of Systems: Patient has significant past medical history of pulmonary insufficiency insulin-dependent diabetic hypertension Constitutional: Denies any chest pain Physical Exam Physical Exam: Is alert coherent frustrated because of this process and repeat this but Throughout her life past year she is overall quite active and she wants to proceed with an amputation so she can resume her activities Constitutional: The sclera is nonicteric no cervical lymphadenopathy Lungs clear to auscultation Heart normal sinus rhythm no murmurs Abdomen grossly benign Right lower extremity the right ankle foot is bandaged at this time I am not able to appreciate any pulses by palpation although the patient has had a CT angiogram and also Doppler indexes she does have a moderate amount of inflammatory arterial sclerotic changes by angiogram which she underwent a vascular ultrasound which she had a right NATHAN of 1.02 with biphasic waveforms over the dorsalis pedis posterior tibial anterior tibial Results & Data ([facility]) Vital Signs (Past 12 Hours) Vital Signs Temp Pulse Resp BP Pulse Ox 12/21/21 08:24 83 159/81 H 12/21/21 07:34 36.7 C 82 18 173/84 H 96 12/20/21 22:48 36.7 C 77 16 162/75 H 96 PG Care Time/CCT Total # of Minutes Spent Total Time Spent with Patient: Total time spent is greater than 50% in coordination of care (as documented) at patient's floor/unit and/or counseling patient: Coding Level of Care Code 21866 Inpt Consult Level 4 Diagnoses Abscess of right foot L02.611
--- NOTE | 2021-12-21 13:51 | Hospitalist Progress Note ---
Date of Service December 21, 2021 Assessment & Plan (1) Abscess of right foot: Plan: -12/11: R foot I&D deep and medial abscess, tenosynovectomy of septic flexor digitorum longus tendon, I&D, medial foot wound dehiscence-- Dr Montaño -intra-op cultures - coag neg staph.--> Sensitivities now available and resistant to clindamycin. 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 -Hospitalized 12/06 this stay with continued IV daptomycin and IV clindamycin (for anaerobic coveragePrevotella) which has subsequently been changed to Dapto/Invanz at recommendations of infectious disease -ID recommends 6 weeks of IV antibiotics from most recent surgical procedure- ABX THERAPY TO CONCLUDE 01/22 -did have PICC but patient removed? (Claims "fell out") Has been receiving IV antibiotics now with wound dehiscence for which repeat MRI done 12/17 showing concern for medial malleoli osteomyelitis and persistent abscess near the hindfoot At this point, patient has failed IV antibiotics and need is BKA. All prior surgeries done by Dr. Montaño but unfortunately, he is not available until Sunday of next week. He asked that we seek other consultants. Spoke with Dr. Good who plans on BKA 12/22. NPO after midnight today Initially on Dilaudid [employer] pump. Since transitioned to Percocet with Dilaudid for breakthrough pain. Was getting Percocet and Dilaudid both. At this time, DC off all oral opiates and utilizing Dilaudid. Reevaluate pain post amputation. May need to consider pain management consult. Would consider t ransition to oral opiates with down taper. (2) Opiate dependence: Plan: - patient has been on opiate medication since this initial wound infection (01/31) - has since developed tachyphylaxis - Lengthy discussion with patient regarding opioid dependence. Would recommend transition to oral pain medication (postsurgery) with plan to down taper. This was discussed with patient and she is agreeable (3) Osteomyelitis: Plan: Complicated course: Started [facility] Diabetic foot ulcer of right 1st and 2nd toe (03/02) following. Seen by orthopedics and referred to wound care at that time Has been hospitalized off and on since 03/02 and primarily on IV antibiotics since 09/03 (initially oral Augmentin and then daptomycin, vancomycin, daptomycin + Flagyl, IV clindamycin + daptomycin, currently daptomycin + Invanz) S/p partial amputation of the first and second toes (Dr. Montaño) S/p multiple I&D's, tenosynovectomy's (Dr. Montaño) Despite multiple debridements and IV antibiotics, there is further progression of her infection which now appears to be involving the medial malleolus with additional abscess formation in the hindfoot Has been seen by vascular: Arterial duplex followed by CT angiogram with runoff. Seen by vascular medicine 09/07/2021 who reports arterial supply adequate to heal surgical wounds Patient has since failed IV antibiotics and multiple debridements and in need of a BKA. Dr. Montaño unavailable until Sunday of next week and asked that we seek other consultants. Plan is for BKA the morning of 12/[address] Good--> greatly appreciate assistance Following BKA, would not need further IV antibiotics thus does not need a PICC line. Would consider short course of oral antibiotics for prophylaxis (prevention of wound infection) (4) Diabetic foot infection: Plan: - continue IV Dapto/Invanz (at recommendations of ID) but plan is for BKA thus following removal of infected bone, can likely DC all antibiotics (5) Nausea & vomiting: Plan: -Patient presented to [facility] with nausea and vomiting -Prior provider thought perhaps secondary to metronidazole; however, patient reports that she was told to stop this medication and she was not taking it upon arrival. -Has had intermittent nausea without vomiting since this hospital stay. She does have underlying diabetes mellitus and perhaps gastroparesis. Now on Reglanhelping. Would D/C with this -Patient refused gastric emptying study due to previous workup done by outside facility. -In addition, patient is noted to not be on anything for GI prophylaxis. She is on multiple antibiotics and Lovenox. Now on Pepcid for GI prophylaxis (6) Anemia: Plan: -Seems to have had post-op anemia following every surgery -seems to be at baseline (likely dilutional drop) -hgb stable (7) HTN (hypertension): Plan: -Controlled on lisinopril, metoprolol succinate, and prn hydralazine (8) Diabetes mellitus type 2, uncontrolled: Plan: -Hemoglobin A1c has been consistently above 10%. -DM NOT controlled (givne A1C >10%) but BS currently controlled at this time with lantus + novolog SSI -Lengthy discussion with patient regarding the importance of good glycemic control and how this affects wound healing (9) Anxiety: Plan: - Ongoing problem for patient - Taking Ativan at home which has been continued during this hospital stay. Need to use caution with coadministration of benzodiazepines and opiates - Vistaril added which seems to be more effective for patient. Encouraged staff to utilize this over the Ativan (10) DVT prophylaxis: Plan: Continue enoxaparin 40mg daily. Plan: Plan is for BKA on 12/22 Lengthy discussion with patient regarding importance of compliance for wound healing. Uncertain if she will need short-term rehab following this hospital stay. Will need PT/OT postsurgical intervention Above plan of care has been discussed in detail with Dr. Hernadez Admission and Anticipated Discharge Date Admission Date: December 06, 2021 Subjective Patient seen on daily rounds today. In a much better place emotionally knowing that her surgery will take place tomorrow. Requesting to go outside today Still with pain in her right lower extremity but otherwise denies fevers, chills, chest pain, shortness of breath, abdominal pain, nausea or vomiting. Is moving her bowel bladder without difficulty. No diarrhea Review of Systems Review of Systems: All systems reviewed and are unremarkable except as noted in HPI and below Denies fevers, chills, headache, nasal congestion, sore throat, cough, chest pain, shortness of breath, palpitations, orthopnea, PND, abdominal pain, nausea, vomiting, diarrhea, constipation, dysuria, hematuria, frequency, back pain, easy bruising or bleeding, skin lesions or rashes. Physical Exam Physical Exam: General: Resting comfortably in her hospital bed. NAD. HEENT: Head is AT/NC. Buccal mucosa is moist and pink Neck: No JVD. Negative hepatojugular reflex Cardiac: RRR with 1/6 ROME Lungs: CTA without W/R/R Abdomen: Normoactive X4. Soft and nontender in all quadrants. Extremities: right foot: 1st and 2nd toes missing (from PRIOR amputation). Skin in this region is well healed. Incision over the right malleolus has slightly dehisced (directly over the ankle itself). Serosanguineous drainage noted. Surrounding area is erythematous. Neuro: A&O X4. Cranial nerves II through XII are grossly intact. No focal neuro deficits Skin: No obvious skin lesions or rashes Psych: Tearful at times. No acute distress Results & Data Results & Data ([facility]) Vital Signs (Past 12 Hours) Vital Signs Temp Pulse Resp BP Pulse Ox 12/21/21 08:24 83 159/81 H 12/21/21 07:34 36.7 C 82 18 173/84 H 96 Laboratory Results 12/20/21 06:03 12/21/21 08:14 PG Care Time/CCT Total # of Minutes Spent Total Time Spent with Patient: Total time spent is greater than 50% in coordination of care (as documented) at patient's floor/unit and/or counseling patient: Coding Level of Care Code 16916 Subseq Hosp Care Lvl 2 Diagnoses Abscess of right foot L02.611 Opiate dependence F11.20 Osteomyelitis M86.9 Laterality: right Osteomyelitis location: foot Osteomyelitis type: unspecified type Diabetic foot infection E11.628; L08.9 Nausea & vomiting R11.2 Vomiting type: unspecified Anemia D64.9 HTN (hypertension) I10 Diabetes mellitus type 2, uncontrolled E11.65 Anxiety F41.9 DVT prophylaxis Z29.9 (1) Osteomyelitis Laterality: right Osteomyelitis location: foot Osteomyelitis type: unspecified type Qualified Code(s): M86.9 - Osteomyelitis, unspecified (2) Nausea & vomiting Vomiting type: unspecified Qualified Code(s): R11.2 - Nausea with vomiting, unspecified
[2021-12-21] MEDS: DAPTOmycin 500 MG in SYRINGE 0 ML IV SCH (15:45)
[2021-12-21] MEDS: ERTAPENEM SODIUM 1,000 MG in SYRINGE 0 ML IV SCH (15:50)
[2021-12-21] MEDS: INSULIN GLARGINE SOLOSTAR 100 UNITS/ML 3 ML PEN SQ SCH (21:08)
[2021-12-21] MEDS: SENNA 8.6 MG TAB PO SCH (21:12)
[2021-12-21] MEDS: rOPINIRole HCL 2 MG TABLET PO SCH (21:12)
[2021-12-21] MEDS: NORTRIPTYLINE HCL 25 MG CAP PO SCH (21:13)
[2021-12-21] MEDS: ZOLPIDEM TARTRATE 10 MG TAB PO PRN (21:20)
[2021-12-22] MEDS: HYDROmorphone INJ 1 MG/ML SYRINGE IV PRN ×9 (00:59→23:32)
[2021-12-22] MEDS: ONDANSETRON INJ 2 MG/ML 2 ML VIAL IV PRN (05:20)
[2021-12-22] MEDS: ADVANCED PROBIOTIC 1250 MG CAPSULE PO SCH (07:42)
[2021-12-22] MEDS: lisinopril 10 MG TAB PO SCH (07:42)
[2021-12-22] MEDS: DOCUSATE SODIUM 100 MG CAP PO SCH ×2 (07:42→20:16)
[2021-12-22] MEDS: LORATADINE 10 MG TAB PO SCH (07:42)
[2021-12-22] MEDS: MULTIVITAMIN TAB PO SCH (07:43)
[2021-12-22] MEDS: FAMOTIDINE 20 MG TAB PO SCH ×2 (07:43→20:16)
[2021-12-22] MEDS: METOCLOPRAMIDE HCL 5 MG TABLET PO SCH ×3 (07:43→16:55)
[2021-12-22] MEDS: ASPIRIN 81 MG ECTAB PO SCH (07:43)
[2021-12-22] MEDS: METOPROLOL SUCC 50MG EXT REL TAB PO SCH (07:44)
[2021-12-22] MEDS: LORazepam 1 MG TAB PO PRN (07:51)
[2021-12-22] MEDS: INSULIN ASPART PER UNIT SC SCH ×4 (07:57→21:32)
[2021-12-22 09:27] LABS: Basophils # (auto) 0.04 K/uL (0-0.2); Basophils % (auto) 0.4 %; Eosinophils # (auto) 0.72 K/uL (0-0.5); Eosinophils % (auto) 7.3 %; Hematocrit (blood only) 35.1 % (37-47); Hemoglobin 11.2 g/dL (12.0-16.0); Immature Granulocytes # (auto) 0.03 K/uL (0.00-0.02); Immature Granulocytes % (auto) 0.3 %; Lymphocytes # (auto) 2.63 K/uL (1.2-3.4); Lymphocytes % (auto) 26.8 %; Mean Corpuscular Hemoglobin 24.5 pg (25-34); Mean Corpuscular Volume 76.8 fL (80-100); Mean Platelet Volume 9.3 fL (7.4-10.4); Monocytes # (auto) 1.18 K/uL (0.11-0.59); Neutrophils # (auto) 5.23 K/uL (1.4-6.5); Neutrophils % (auto) 53.2 %; Platelet Count 377 K/uL (130-400); RDW Standard Deviation 42.3 fL (36.4-46.3); Red Blood Count 4.57 M/uL (4.2-5.4); White Blood Count 9.83 K/uL (4.8-10.8)
[2021-12-22] MEDS ORDERED: fentaNYL citrate 100 MCG/2 ML VIAL ONE (09:43)
[2021-12-22] MEDS ORDERED: PROPOFOL IV EMULSION 10 MG/ML 20 ML VIAL IV ONE (09:43)
[2021-12-22] MEDS ORDERED: MIDAZOLAM HCL 1 MG/ML 2ML VIAL ONE (09:43)
[2021-12-22 09:47] LABS: Mean Corpuscular Hgb Conc 31.9 g/dL (32-36)
--- NOTE | 2021-12-22 10:11 | History & Physical Bridge Note ---
Date of Service December 22, 2021 History & Physical Bridge Note I have examined the patient, reviewed the History & Physical and in the interval since the performance of the History & Physical I have noted the following changes of clinical significance: no changes noted pt marked all question answered
[2021-12-22 10:12] LABS: BUN Creatinine Ratio 23.6 (10-20); Calcium 9.4 mg/dl (8.5-10.1); Creatinine Clr Calc Pharmacy 103.5 ml/min; Est GFR (African American) 120.7 ml/min; Est GFR (Non-African American) 104.1 ml/min; Potassium 4.2 mmol/L (3.5-5.1)
[2021-12-22] MEDS ORDERED: ONDANSETRON INJ 2 MG/ML 2 ML VIAL IV PRN (10:33)
[2021-12-22] MEDS ORDERED: fentaNYL citrate 100 MCG/2 ML VIAL IV PRN (10:33)
[2021-12-22] MEDS ORDERED: ATROPINE SULFATE 0.1 MG/ML 10ML SYR IV PRN (10:33)
[2021-12-22] MEDS ORDERED: ePHEDrine sulfate 50 MG/ML AMP IV PRN (10:33)
--- NOTE | 2021-12-22 10:33 | Anesthesiology Consultation ---
Date of Service December 22, 2021 Assessment & Plan ASA ASA3 Proposed Anesthesia Anesthesia Type: General Risk / Benefits Reviewed With: PT / POA / Parent / Guardian, Accepts Plan and Informed Consent Obtained History Surgery Operation Date: 12/11/21 14:00 Proposed Procedures p Incision and Drainage Extremity(Right) - Akhil Montaño DO Operation Date: 12/22/21 09:35 Proposed Procedures p Right Below Knee Amputation - Davon Good MD, FACS Height/Weight Height: 5 ft 2 in Weight: 70.1 kg Allergies Allergy/AdvReac Type Severity Reaction Status Date / Time morphine Allergy Severe blisters Verified 12/03/21 20:36 in mouth Sulfa (Sulfonamide Allergy Severe rash/swelli Verified 12/03/21 20:36 Antibiotics) ng iron [From Venofer] Allergy Intermediate Hypertensio Verified 12/03/21 20:36 n vancomycin Allergy Intermediate YULIYA Verified 12/03/21 20:36 SYNDROME---CAN TAKE IF VERY SLOW DRIP. amoxicillin [From Augmentin] Allergy Mild itching/power Verified 12/03/21 20:36 h clavulanic acid Allergy Mild itching/power Verified 12/03/21 20:36 [From Augmentin] h Medications Home Medications Medication Instructions Recorded Confirmed Last Taken nortriptyline 50 mg capsule 100 mg PO HS 10/19/20 12/06/21 11/03/21 (Pamelor) ropinirole 2 mg tablet 4 mg PO HS 10/19/20 12/06/21 11/03/21 lancets (OneTouch UltraSoft #100 ea 11/12/20 11/24/21 Unknown Lancets) albuterol sulfate 90 mcg/actuation 1 puff INHALATION QID PRN 03/05/21 12/06/21 09/02/21 08:30 aerosol inhaler (Proventil HFA) metoprolol succinate 50 mg 50 mg PO QAM 03/05/21 12/06/21 12/03/21 tablet,extended release 24 hr (Toprol XL) insulin glargine 100 unit/mL (3 15 unit SUBCUT HS #1 ml 08/18/21 12/06/21 11/23/21 mL) subcutaneous pen (Basaglar KwikPen U-100 Insulin) insulin lispro 100 unit/mL 3 unit SUBCUT TIDM #1 ml 08/18/21 12/06/21 12/03/21 subcutaneous pen (Humalog KwikPen (U-100) Insulin) aspirin 81 mg tablet,delayed 81 mg PO BID #60 tab 10/04/21 12/06/21 12/03/21 release (Aspirin Low Dose) lisinopril 10 mg tablet 10 mg PO QAM #30 tab 10/04/21 12/06/21 12/03/21 lorazepam 1 mg tablet (Ativan) 1 mg PO TID PRN 11/04/21 12/06/21 Unknown cyclobenzaprine 10 mg tablet 10 mg PO BID tab 11/24/21 12/06/21 12/03/21 zolpidem 12.5 mg tablet,extended 12.5 mg PO DAILY 11/29/21 12/06/21 12/03/21 release,multiphase daptomycin 500 mg intravenous 1 dose NOT APPLICABLE UD #1 ea 12/01/21 12/06/21 Unknown solution (Cubicin) metronidazole 500 mg tablet 500 mg PO TID 28 Days #84 tab 12/01/21 12/06/21 12/03/21 metformin 500 mg tablet,extended 1,000 mg PO DAILY 12/06/21 Unknown release 24 hr oxycodone-acetaminophen 5 mg-325 1 tab PO Q8 PRN 12/06/21 12/06/21 Unknown mg tablet (Percocet) Active Medications Generic Name Dose Route Start Last Admin Trade Name Freq PRN Reason Stop Dose Admin Aspirin 81 mg 12/16/21 09:00 12/22/21 07:43 Aspirin 81 Mg Ectab PO 01/15/22 08:59 81 mg QAM RICKY Administration Cyclobenzaprine HCl 10 mg 12/06/21 20:19 12/21/21 09:19 Cyclobenzaprine Hcl 10 Mg Tab PO 01/05/22 20:18 10 mg BID PRN Administration Muscle Spasm Docusate Sodium 100 mg 12/11/21 21:00 12/22/21 07:42 Docusate Sodium 100 Mg Cap PO 01/10/22 20:59 100 mg BID RICKY Administration Famotidine 20 mg 12/17/21 10:30 12/22/21 07:43 Famotidine 20 Mg Tab PO 01/16/22 10:29 20 mg BID RICKY Administration Heparin Sodium (Beef Lung) 5 ml 12/06/21 16:40 12/11/21 07:16 Heparin 10 Unit/Ml 5 Ml Flush FLUSH 01/05/22 16:39 5 ml PRN PRN Administration Flush Hydralazine HCl 10 mg 12/06/21 19:33 12/15/21 17:48 Hydralazine Hcl 20 Mg/Ml Vial IV 01/05/22 19:32 10 mg Q6H PRN Administration for SBP>160 or DBP>100 Hydromorphone HCl 1 mg 12/19/21 14:33 12/22/21 07:40 Hydromorphone Inj 1 Mg/Ml Syringe IV 12/29/21 10:12 1 mg Q2H PRN Administration breakthrough pain' Hydroxyzine HCl 25 mg 12/16/21 10:17 12/21/21 22:56 Hydroxyzine Hcl 25 Mg Tab PO 01/15/22 10:16 25 mg Q6H PRN Administration Anxiety Daptomycin 500 mg/ Syringe 10 mls @ 5 mls/min 12/07/21 16:00 12/21/21 15:45 IV 01/18/22 15:59 5 mls/min Q24H RICKY Administration Protocol Ertapenem 1,000 mg/ Syringe 10 mls @ 2 mls/min 12/15/21 16:00 12/21/21 15:50 IV 01/26/22 15:59 2 mls/min Q24H RICKY Administration Protocol Insulin Aspart 0 units 12/11/21 21:00 12/22/21 07:57 Insulin Aspart Per Unit SC 01/10/22 05:59 Not Given ACHS [facility] Insulin Glargine 15 units 12/06/21 21:00 12/21/21 21:08 Insulin Glargine Solostar 100 Units/Ml 3 Ml Pen SQ 01/05/22 20:59 15 units HS RICKY Administration Lactobacillus Acidophilus 2 cap 12/09/21 15:00 12/22/21 07:42 Advanced Probiotic 1250 Mg Capsule PO 01/08/22 14:59 2 cap DAILY RICKY Administration Lisinopril 10 mg 12/07/21 09:00 12/22/21 07:42 Lisinopril 10 Mg Tab PO 01/06/22 08:59 10 mg QAM RICKY Administration Loratadine 10 mg 12/10/21 09:00 12/22/21 07:42 Loratadine 10 Mg Tab PO 01/09/22 08:59 10 mg QAM RICKY Administration Lorazepam 1 mg 12/06/21 20:19 12/22/21 07:51 Lorazepam 1 Mg Tab PO 01/05/22 20:18 1 mg TID PRN Administration Anxiety Melatonin 3 mg 12/07/21 21:45 12/17/21 22:33 Melatonin 3 Mg Tab PO 01/06/22 21:44 3 mg HS PRN Administration Sleep Metoclopramide HCl 10 mg 12/11/21 12:36 12/14/21 04:48 Metoclopramide Hcl Inj 5 Mg/Ml 2 Ml Vial IV 01/10/22 12:35 10 mg Q6H PRN Administration Nausea And Vomiting Metoclopramide HCl 5 mg 12/17/21 11:30 12/22/21 07:43 Metoclopramide Hcl 5 Mg Tablet PO 01/16/22 11:29 5 mg AC RICKY Administration Metoprolol Succinate 50 mg 12/07/21 09:00 12/22/21 07:44 Metoprolol Succ 50mg Ext Rel Tab PO 01/06/22 08:59 50 mg QAM RICKY Administration Multivitamins 1 tab 12/12/21 09:00 12/22/21 07:43 Multivitamin Tab PO 01/11/22 08:59 1 tab QAM RICKY Administration Nortriptyline HCl 100 mg 12/06/21 21:00 12/21/21 21:13 Nortriptyline Hcl 25 Mg Cap PO 01/05/22 20:59 100 mg HS RICKY Administration Ondansetron HCl 4 mg 12/11/21 12:36 12/22/21 05:20 Ondansetron Inj 2 Mg/Ml 2 Ml Vial IV 01/10/22 12:35 4 mg Q6H PRN Administration Nausea And Vomiting Ropinirole HCl 4 mg 12/06/21 21:00 12/21/21 21:12 Ropinirole Hcl 2 Mg Tablet PO 01/05/22 20:59 4 mg HS RICKY Administration Sennosides 17.2 mg 12/11/21 21:00 12/21/21 21:12 Senna 8.6 Mg Tab PO 01/10/22 20:59 17.2 mg HS RICKY Administration Zolpidem Tartrate 10 mg 12/06/21 21:37 12/21/21 21:20 Zolpidem Tartrate 10 Mg Tab PO 01/05/22 21:36 10 mg DAILY PRN Administration Insomnia NPO Date Last Intake of Fluids: 12/21/21 Time Last Intake of Fluids: 20:45 Last Intake of Fluids Comment: at 0730 sip water for meds Date Last Intake of Solids: 12/21/21 Time Last Intake of Solids: 20:45 Past Medical History Medical History 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 No issues per anesthesia postop progress note. Anemia Cellulitis Chronic back pain Depression Diabetic peripheral neuropathy DM2 (diabetes mellitus, type 2) IDDM, A1c 07/2021-11% Gastritis GIB (gastrointestinal bleeding) History of amputation of great toe Hyperlipidemia Insulin dependent diabetes mellitus Iron deficiency anemia Nonobstructive atherosclerosis of coronary artery Numbness of lower extremity Peripheral neuropathy Right second toe ulcer Seizures Exercise / Class Metabolic Activity II 4-5 Yardwork/Stairs/Walk up hill Past Family History Family History Mother , age 63 Myocardial infarction Father , age 68 or 69 Myocardial infarction Brother S/P CABG (coronary artery bypass graft) Sister Myocardial infarction x 3; she is 57yo Past Surgical History Surgical History History of cardiac cath done at [facility]; 09/22/19; LM - mild luminal irregularities. LAD - mid 20-30%, distal with myocardial bridge & 30% stenosis. L Cx - mild l uminal irregularities. RCA - proximal <30% stenosis; mid/distal vessel mild plaques. PDA - mild luminal irregularities. History of esophagogastroduodenoscopy (EGD) Past Anesthesia History No Hx of Anesthesia Complications and No Family Hx of Anesthesia Complications History of PONV No Hx of PONV and No Hx of Motion Sickness Social History Smoking Status: Former smoker tobacco type: cigarettes Smoking cigarettes per day: 20 Do You Dip or Chew Tobacco: No Hx Alcohol Use: No Hx Substance Use: No substance use type: marijuana Substance Use Type Other:: medical marijuana Last Used Substance: Days (ago) Last Used Substance Other:: 2 days ago Review of Systems denies fever/cough/ colds/ chest pain/ SOB/ PHIL denies PHIL Physical Exam Vital Signs Last Vital Signs Temp 37.1 C 12/22/21 09:52 Pulse 89 12/22/21 09:52 Resp 20 12/22/21 09:52 BP 175/95 H 12/22/21 09:52 Pulse Ox 97 12/22/21 09:52 ENMT Mouth: no TMJ abnormality and no dentition abnormality Thyromental Distance: > or= 3.5 Finger Breadths Mallampati Class: II Neck neck extension not limited Respiratory normal respiratory effort; no respiratory distress Auscultation: lungs clear to auscultation bilaterally Cardiovascular Rate/Rhythm: regular rate and regular rhythm Neurologic moves all extremities Psychiatric Orientation: alert and oriented x 3 Testing Laboratory Results 12/22/21 09:06 12/22/21 09:06 PT 10.5 Seconds (9.0-12.0) 12/06/21 13:45 INR 1.0 (0.9-1.1) 12/06/21 13:45 Urine Color Yellow 12/06/21 15:12 Urine Appearance Clear (Clear) 12/06/21 15:12 Urine pH 7.5 (4.5-7.5) 12/06/21 15:12 Ur Specific [place] 1.015 (1.000-1.030) 12/06/21 15:12 Urine Protein 1+ (Negative) H 12/06/21 15:12 Urine Glucose (UA) 1+ (Negative) H 12/06/21 15:12 Urine Ketones Negative (Negative) 12/06/21 15:12 Urine Nitrite Negative (Negative) 12/06/21 15:12 Ur Leukocyte Esterase Negative (Negative) 12/06/21 15:12 Urine WBC (Auto) 1-5 /hpf (0-5) 12/06/21 15:12 Urine RBC (Auto) 0-4 /hpf (0-4) 12/06/21 15:12 U Hyaline Cast (Auto) 1-5 /lpf (0-5) 12/06/21 15:12 U Epithel Cells (Auto) 10-20 /lpf (0-5) H 12/06/21 15:12 Urine Bacteria (Auto) Negative (Negative) 12/06/21 15:12 Blood Type AB Positive 12/21/21 17:18 Antibody Screen NEGATIVE 12/21/21 17:18 12/11/21 12:10 Gram Stain - Final Foot,Right Aerobic and Anaerobic Culture - Final Coag neg staph not lugdunensis 12/06/21 18:17 Aerobic Blood Culture - Final Blood No growth in Aerobic bottle after 5 days. Anaerobic Blood Culture - Final No growth in Anaerobic bottle after 5 days. 12/06/21 14:44 Aerobic Blood Culture - Final Blood No growth in Aerobic bottle after 5 days. Anaerobic Blood Culture - Final No growth in Anaerobic bottle after 5 days. 12/22/21 12/22/21 09:55 06:04 POC Glucose 136 H 130 H
[2021-12-22] MEDS ORDERED: KETAMINE 50 MG/5 ML SYRINGE ONE (10:45)
[2021-12-22] MEDS ORDERED: HYDROmorphone INJ 2 MG/ML SYR/VIAL ONE (10:49)
[2021-12-22] MEDS ORDERED: ePHEDrine sulfate 50 MG/ML SYR ONE (10:57)
[2021-12-22] MEDS ORDERED: ONDANSETRON INJ 2 MG/ML 2 ML VIAL ONE (12:01)
--- NOTE | 2021-12-22 12:06 | Post Operative Brief Note ---
Immediate Post Op Note v1 Date of Surgery December 22, 2021 Pre & Post Diagnosis Operation Date: 12/11/21 14:00 Pre-Op Diagnosis: Right deep abscess medial foot, flexor digitorum longus tendon septic tenosynovitis, medial foot wound dehiscence 2.5 x 1.0 x 0.9 cm, diabetic neuropathy. Post-Op Diagnosis: Right deep abscess medial foot, flexor digitorum longus tendon septic tenosynovitis, medial foot wound dehiscence 2.5 x 1.0 x 0.9 cm, diabetic neuropathy. Operation Date: 12/22/21 09:35 Pre-Op Diagnosis: Abscess of right foot. Post-Op Diagnosis: Abscess of right foot. I identified the patient and participated in the time-out.: Yes Procedure Operation Date: 12/11/21 14:00 Actual Procedures p Incision and Drainage Right foot deep medial abscess, tenosynovectomy septic flexor digitorum longus tendon, irrigation debridement medial foot wound dehis cence 2.5 x 1.0 x 0.9 cm including skin, subcutaneous tissue, dermis, fascia and periosteum.(Right) - Akhil Montaño DO Operation Date: 12/22/21 09:35 Actual Procedures p Right Below Knee Amputation(Right) - Davon Good MD, FACS Surgeon Davon Good MD, FACS Adjunct [employer] Maribell Maki PA-C Estimated Blood Loss 2 Findings Consistent with Post-Op Diagnosis Specimens Aerobic, anaerobic, Gram stain medial foot deep abscess Septic tenosynovium flexor digitorum longus tendon and surrounding tissue Drains Other (1/2 inch iodoform gauze 3 separate sites) Anesthesia Type General Regional
[2021-12-22] MEDS: HYDROmorphone INJ 2 MG/ML SYR/VIAL IV PRN ×8 (12:16→13:03)
--- NOTE | 2021-12-22 12:22 | Operative Report ---
Post Operative Report Pre & Post Diagnosis Operation Date: 12/11/21 14:00 Pre-Op Diagnosis: Right deep abscess medial foot, flexor digitorum longus tendon septic tenosynovitis, medial foot wound dehiscence 2.5 x 1.0 x 0.9 cm, diabetic neuropathy. Post-Op Diagnosis: Right deep abscess medial foot, flexor digitorum longus tendon septic tenosynovitis, medial foot wound dehiscence 2.5 x 1.0 x 0.9 cm, diabetic neuropathy. Operation Date: 12/22/21 09:35 Pre-Op Diagnosis: Abscess of right foot. Post-Op Diagnosis: Abscess of right foot. I identified the patient and participated in the time-out.: Yes Procedure Operation Date: 12/11/21 14:00 Actual Procedures p Incision and Drainage Right foot deep medial abscess, tenosynovectomy septic flexor digitorum longus tendon, irrigation debridement medial foot wound dehiscence 2.5 x 1.0 x 0.9 cm including skin, subcutaneous tissue, dermis, fascia and periosteum.(Right) - Akhil Montaño DO Operation Date: 12/22/21 09:35 Actual Procedures p Right Below Knee Amputation(Right) - Davon Good MD, FACS Patient was brought into the operating theater supine position general endotracheal anesthesia patient had antibiotics on board we prepped the right leg elevating it by raising her foot prepped hemodialyzed solution from just above the ankle all the way to the upper thigh once this has been completed we held the leg up by Tylenol placed underneath the calf placed leg wrapped with Coban patient was identified a timeout was had and we marked the posterior anterior flap in the [facility] making sure the anterior tab was little bit shorter than the posterior the patient had a tattoo on the right lateral leg just in the area where we would normally would make an extension of the anterior flap and posterior to that area therefore to save the tattoo we made the flap a little more more medial than usual we developed the posterior flap first coming through subcutaneous tissue some veins were cauterized or ligated then we developed the anterior flap in a similar fashion we worked on the anterior flap first taken down to the tibia dissected around the tibia that we were able then to place a Gigli saw and resected the tibia without any difficulty anterior tibial artery was near the area easily identifiable and we ligated divided once we elevated the tibia we then went onto the fibula we tried a rongeur at the same level but very tough to do that therefore we applied the Gigli saw around that in a similar fashion and divided the fibula at this point we then went on working our way posteriorly beyond the tibia ligating the peroneal artery and using the fillet knife we then developed the posterior muscle bundle bleeding through some of the muscles were ligated with 2-0 silk nerve identified pulled and ligated with 2-0 silk and resided at this point we felt that we needed to resect the tibia more which we did by freeing the periosteum elevator and brought another Gigli saw and elevated and resected another inch we then used the rasp to bevel the anterior surface of the tibial avoiding any sharp edges the fibula similarly we resected another 2 inches of it in a similar fashion and using 2-0 interrupted Vicryl suture we reapproximated the posterior musculature to the anterior musculature we had identified that the posterior musculature was more prominent than we anticipated therefore resected the posterior muscle fiber of the gastrocs and we continued anterior to close the subcutaneous tissue to avoiding pretension on the skin edge due to that we were more anteriorly normally on the lateral aspect to try to avoid the large tattoo we had a little bit more excessive skin that we beveled it in such a way that we have loaded any dogears we then placed Curlex after we put Xeroform and a fluffy gauze and Candice splint and Mikey bandage the procedure was tolerated well by the patient estimate blood loss 200 cc Spoke with Julito at [phone] discussed with him the operative procedure: We will save the tattoo and another surgeon will be checking on her to we can that she would be in the hospital least until Sunday All question were answered Surgeon Davon Good MD, FACS Substance Abuse Therapist Maribell Maki PA-C Estimated Blood Loss 200 Findings Consistent with Post-Op Diagnosis Abscess and ostial right foot Specimens Right BK amputation Indications Ongoing osteo and abscesses right foot Description of Procedure merda I attest to the content of the Intraoperative Record and any orders documented therein. Any exceptions are noted below.
--- NOTE | 2021-12-22 12:56 | Anesthesiology Progress Note ---
Date of Service December 22, 2021 Anesthesia Post Procedure Vital Signs Vital Signs: Temp Pulse Pulse Resp BP BP Pulse Ox 12/22/21 12:40 95 H 12 121/73 98 12/22/21 12:30 99 H 14 111/80 99 12/22/21 12:20 93 H 9 L 125/85 93 12/22/21 12:13 37.5 C 94 H 89 16 100/68 93 12/22/21 09:52 37.1 C 89 20 175/95 H 97 12/22/21 07:28 36.8 C 86 16 184/83 H 97 12/22/21 02:00 36.7 C 80 18 168/74 H 98 12/21/21 22:00 36.7 C 75 18 189/82 H 96 12/21/21 16:54 36.7 C 74 18 152/94 H 97 Pain Intensity Right Foot: Pain Intensity: 10 Right Leg: Pain Intensity: 10 Transfer of Care Handoff Completed per policy Notes Mental Status: alert / awake / arousable and participated in evaluation Patient Amnestic to Procedure: Yes Nausea / Vomiting: adequately controlled Pain: adequately controlled Airway Patency, RR, SpO2: stable & adequate BP & HR: stable & adequate Hydration State: stable & adequate Anesthetic Complications: no major complications apparent and Pt Satisfied with anesthetic care
[2021-12-22] MEDS: hydrOXYzine HCl 25 MG TAB PO PRN ×2 (15:39→22:32)
[2021-12-22] MEDS: ERTAPENEM SODIUM 1,000 MG in SYRINGE 0 ML IV SCH (15:41)
[2021-12-22] MEDS: DAPTOmycin 500 MG in SYRINGE 0 ML IV SCH (15:41)
--- NOTE | 2021-12-22 16:10 | Hospitalist Progress Note ---
Date of Service December 22, 2021 Assessment & Plan (1) Abscess of right foot: Plan: 12/11: R foot I&D deep and medial abscess, tenosynovectomy of septic flexor digitorum longus tendon, I&D, medial foot wound dehiscence-- Dr Montaño intra-op cultures - coag neg staph.--> Sensitivities now available and resistant to clindamycin. 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 Hospitalized 12/06 this stay with continued IV daptomycin and IV clindamycin (for anaerobic coveragePrevotella) which has subsequently been changed to Dapto/Invanz at recommendations of infectious disease ID recommends 6 weeks of IV antibiotics from most recent surgical procedure- ABX THERAPY TO CONCLUDE 01/22 did have PICC but patient removed? (Claims "fell out") Has been receiving IV antibiotics now with wound dehiscence for which repeat MRI done 12/17 showing concern for medial malleoli osteomyelitis and persistent abscess near the hindfoot At this point, patient has failed IV antibiotics and needs a BKA. All prior surgeries done by Dr. Montaño but unfortunately, he is not available until Sunday of next week. He asked that we seek other consultants. Spoke with Dr. Good who agreed to perform procedure which was done toda (12/22). 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 Since transitioned to Percocet with Dilaudid for breakthrough pain. Was getting Percocet and Dilaudid both. Percocet d/c'd and she was continued on IV Dilaudid alone with plans to reevaluate post amputation. May need to consider pain management consult. Would consider transition to oral opiates with down taper. (2) Opioid dependence: Plan: patient has been on opiate medication since this initial wound infection (01/31) has since developed tachyphylaxis Prior provider had lengthy discussion with patient regarding opioid dependence recommending transition to oral pain medication (postsurgery) with plan to down taper, of which pt was agreeable Now pt is demanding more pain medication despite receiving IV Dilaudid 1mg q2h prn (3) Osteomyelitis: Plan: Complicated course: Started [facility] Diabetic foot ulcer of right 1st and 2nd toe (03/02) following. Seen by orthopedics and referred to wound care at that time Has been hospitalized off and on since 03/02 and primarily on IV antibiotics since 09/03 (initially oral Augmentin and then daptomycin, vancomycin, daptomycin + Flagyl, IV clindamycin + daptomycin, currently daptomycin + Invanz) S/p partial amputation of the first and second toes (Dr. Montaño) S/p multiple I&D's, tenosynovectomy's (Dr. Montaño) Despite multiple debridements and IV antibiotics, there is further progression of her infection which now appears to be involving the medial malleolus with additional abscess formation in the hindfoot Has been seen by vascular: Arterial duplex followed by CT angiogram with runoff. Seen by vascular medicine 09/07/2021 who reports arterial supply adequate to heal surgical wounds Patient has since failed IV antibiotics and multiple debridements and in need of a BKA. Dr. Montaño unavailable until Sunday of next week and asked that we seek other consultants. Plan is for BKA the morning of 12/[address] Good--> greatly appreciate assistance Following BKA, would not need further IV antibiotics thus does not need a PICC line. Would consider short course of oral antibiotics for prophylaxis (prevention of wound infection) (4) Diabetic foot infection: Plan: continue IV Dapto/Invanz (at recommendations of ID) but plan is for BKA thus following removal of infected bone, can likely D/C all antibiotics (5) Nausea & vomiting: Plan: Patient presented to [facility] with nausea and vomiting Prior provider thought perhaps secondary to metronidazole; however, patient reports that she was told to stop this medication and she was not taking it upon arrival. Has had intermittent nausea without vomiting since this hospital stay. She does have underlying diabetes mellitus and perhaps gastroparesis. Now on Reglanhelping. Would D/C with this Patient refused gastric emptying study due to previous workup done by outside facility. In addition, patient is noted to not be on anything for GI prophylaxis. She is on multiple antibiotics and Lovenox. Now on Pepcid for GI prophylaxis (6) Anemia: Plan: Seems to have had post-op anemia following every surgery seems to be at baseline (likely dilutional drop) hgb stable (7) HTN (hypertension): Plan: Controlled on lisinopril, metoprolol succinate, and prn hydralazine Becomes accelerated w/ pain and agitation (8) Diabetes mellitus type 2, uncontrolled: Plan: Hemoglobin A1c has been consistently above 10%. DM NOT controlled (given A1C >10%) but BS currently controlled at this time with lantus + novolog SSI Lengthy discussion with patient regarding the importance of good glycemic control and how this affects wound healing (9) Anxiety: Plan: Ongoing problem for patient Taking Ativan at home which has been continued during this hospital stay. Need to use caution with coadministration of benzodiazepines and opioids Vistaril added which seems to be more effective for patient. Encouraged staff to utilize this over the Ativan (10) DVT prophylaxis: Plan: Continue enoxaparin 40mg daily. Plan: Pain control as written, plan is to transition to oral and taper. May consider reaching out to pain management for guidance, but ultimately, pt needs to be weaned off of these medications. Will discuss stopping IV antibiotics w/ ID as with removed infected bone/tissue, no indication to continue. Lengthy discussion with patient regarding importance of compliance for wound healing. Uncertain if she will need short-term rehab following this hospital stay. PT/OT consult placed to see tomorrow. Above plan of care has been discussed in detail with Dr. Allan. Admission and Anticipated Discharge Date Admission Date: December 06, 2021 Subjective Pt seen on rounds this afternoon as she was in the OR during morning rounds. When seen, pt is sobbing in her room stating that she is in so much pain. She is now s/p R BKA. Per RN, she received a total of 4mg of IV Dilaudid in PACU for pain. Since returning to floor, she has received another 1mg of IV Dilaudid and also a dose of Vistaril and Tylenol. She has been shouting out to RN that she is going to sign out AMA if she does not receive something else for pain. Review of Systems Review of Systems: All systems reviewed and are unremarkable except as noted in HPI and below Denies fevers, chills, headache, nasal congestion, sore throat, cough, chest pain, shortness of breath, palpitations, orthopnea, PND, abdominal pain, nausea, vomiting, diarrhea, constipation, dysuria, hematuria, frequency, back pain, easy bruising or bleeding, skin lesions or rashes. Physical Exam Physical Exam: GENERAL: 56 yo well-developed, well-nourished WF. NAD. LUNGS: Clear to auscultation bilaterally. No W/R/R. CARDIOVASCULAR: Regular rate and rhythm. No M/G/R. No JVD. ABDOMEN: Soft, non-tender and non-distended. BS normal x 4 quad. EXTREMITIES: s/p r BKA which is dressed and wrapped in ayad. LLE w/o edema. Non- tender. PT/DP pulses +2/4. NEUROLOGIC: A&O x3. PSYCHIATRIC: Cooperative. Appropriate mood and affect. SKIN: see ext exam. remaining skin warm, dry, intact Results & Data Results & Data ([facility]) Vital Signs (Past 12 Hours) Vital Signs Temp Pulse Pulse Resp BP BP Pulse Ox 12/22/21 14:45 96 H 20 178/74 H 100 12/22/21 14:10 36.4 C L 92 H 16 164/78 H 99 12/22/21 13:40 36.9 C 92 H 16 128/80 99 12/22/21 13:30 91 H 22 150/74 H 98 12/22/21 13:20 36.9 C 91 H 15 145/77 H 95 12/22/21 13:10 92 H 14 121/82 97 12/22/21 13:00 94 H 16 134/78 98 12/22/21 12:50 95 H 17 105/91 98 12/22/21 12:40 95 H 12 121/73 98 12/22/21 12:30 99 H 14 111/80 99 12/22/21 12:20 93 H 9 L 125/85 93 12/22/21 12:13 37.5 C 94 H 89 16 100/68 93 12/22/21 09:52 37.1 C 89 20 175/95 H 97 05/12/22 07:28 36.8 C 86 16 184/83 H 97 Laboratory Results 12/22/21 09:06 12/22/21 09:06 PG Care Time/CCT Total # of Minutes Spent Total Time Spent with Patient: Total time spent is greater than 50% in coordination of care (as documented) at patient's floor/unit and/or counseling patient: Coding Level of Care Code 47146 Subseq Hosp Care Lvl 2 Diagnoses Abscess of right foot L02.611 Osteomyelitis M86.9 Laterality: right Osteomyelitis location: foot Osteomyelitis type: unspecified type Diabetic foot infection E11.628; L08.9 Nausea & vomiting R11.2 Vomiting type: unspecified Anemia D64.9 HTN (hypertension) I10 Diabetes mellitus type 2, uncontrolled E11.65 Anxiety F41.9 DVT prophylaxis Z29.9 Opioid dependence F11.20 (1) Osteomyelitis Laterality: right Osteomyelitis location: foot Osteomyelitis type: unspecified type Qualified Code(s): M86.9 - Osteomyelitis, unspecified (2) Nausea & vomiting Vomiting type: unspecified Qualified Code(s): R11.2 - Nausea with vomiting, unspecified
[2021-12-22] MEDS: NORTRIPTYLINE HCL 25 MG CAP PO SCH (20:16)
[2021-12-22] MEDS: ACETAMINOPHEN 1,000 MG/100 ML VIAL IV PRN (20:17)
[2021-12-22] MEDS: rOPINIRole HCL 2 MG TABLET PO SCH (20:17)
[2021-12-22] MEDS: SENNA 8.6 MG TAB PO SCH (20:17)
[2021-12-22] MEDS: ZOLPIDEM TARTRATE 10 MG TAB PO PRN (20:26)
[2021-12-22] MEDS: hydrALAZINE HCL 20 MG/ML VIAL IV PRN (21:19)
[2021-12-22] MEDS: INSULIN GLARGINE SOLOSTAR 100 UNITS/ML 3 ML PEN SQ SCH (21:33)
[2021-12-23] MEDS: HYDROmorphone INJ 1 MG/ML SYRINGE IV PRN ×5 (01:42→10:20)
[2021-12-23] MEDS: ONDANSETRON INJ 2 MG/ML 2 ML VIAL IV PRN (01:48)
[2021-12-23] MEDS: ACETAMINOPHEN 1,000 MG/100 ML VIAL IV PRN ×2 (04:15→18:20)
[2021-12-23] MEDS: CYCLOBENZAPRINE HCL 10 MG TAB PO PRN (05:00)
[2021-12-23 08:56] LABS: Basophils # (auto) 0.02 K/uL (0-0.2); Basophils % (auto) 0.1 %; Eosinophils # (auto) 0.19 K/uL (0-0.5); Eosinophils % (auto) 1.2 %; Hematocrit (blood only) 30.9 % (37-47); Hemoglobin 9.8 g/dL (12.0-16.0); Immature Granulocytes # (auto) 0.05 K/uL (0.00-0.02); Immature Granulocytes % (auto) 0.3 %; Lymphocytes # (auto) 2.38 K/uL (1.2-3.4); Lymphocytes % (auto) 14.9 %; Mean Corpuscular Hemoglobin 24.3 pg (25-34); Mean Corpuscular Volume 76.7 fL (80-100); Monocytes # (auto) 2.14 K/uL (0.11-0.59); Monocytes % (auto) 13.4 %; Neutrophils # (auto) 11.22 K/uL (1.4-6.5); Neutrophils % (auto) 70.1 %; Platelet Count 350 K/uL (130-400); RDW Coefficient of Variation 15.2 % (11.5-14.5); RDW Standard Deviation 43.3 fL (36.4-46.3); Red Blood Count 4.03 M/uL (4.2-5.4)
[2021-12-23] MEDS: INSULIN ASPART PER UNIT SC SCH ×4 (09:10→21:33)
[2021-12-23] MEDS: LORATADINE 10 MG TAB PO SCH (09:11)
[2021-12-23] MEDS: METOPROLOL SUCC 50MG EXT REL TAB PO SCH (09:11)
[2021-12-23] MEDS: hydrOXYzine HCl 25 MG TAB PO PRN ×2 (09:11→16:40)
[2021-12-23] MEDS: FAMOTIDINE 20 MG TAB PO SCH ×2 (09:11→21:32)
[2021-12-23] MEDS: ASPIRIN 81 MG ECTAB PO SCH (09:11)
[2021-12-23] MEDS: METOCLOPRAMIDE HCL 5 MG TABLET PO SCH ×3 (09:12→16:41)
[2021-12-23] MEDS: ADVANCED PROBIOTIC 1250 MG CAPSULE PO SCH (09:12)
[2021-12-23] MEDS: lisinopril 10 MG TAB PO SCH (09:12)
[2021-12-23 09:21] LABS: Mean Corpuscular Hgb Conc 31.7 g/dL (32-36)
[2021-12-23 09:38] LABS: BUN Creatinine Ratio 17.8 (10-20); Creatinine Clr Calc Pharmacy 126.5 ml/min; Est GFR (African American) 128.9 ml/min; Est GFR (Non-African American) 111.2 ml/min
[2021-12-23] MEDS: DOCUSATE SODIUM 100 MG CAP PO SCH ×2 (09:40→21:32)
[2021-12-23] MEDS: MULTIVITAMIN TAB PO SCH (09:44)
[2021-12-23] MEDS ORDERED: NALOXONE HCL 0.4 MG/1 ML VIAL/CARP IV PRN (11:58)
--- NOTE | 2021-12-23 12:00 | Surgery Progress Note ---
Date of Service December 23, 2021 Assessment & Plan (1) History of right below knee amputation: Plan: POD 1 and without adequate analgesia. she is not narcotic naive and therefore may require more. will start ASSISTANT PROFESSOR OF HISTORY and titrate. Admission and Anticipated Discharge Date Admission Date: December 06, 2021 Subjective pt seen. c/o of severe pain at surgical sight. Physical Exam Physical Exam: alert. moderate distress secondary to pain dressing changed. wound looks good. minimal drainage. Results & Data ([facility]) Vital Signs (Past 12 Hours) Vital Signs Temp Pulse Resp BP Pulse Ox 12/23/21 07:36 37 C 95 H 18 150/75 H 97 12/23/21 01:44 36.8 C 98 H 18 147/70 H 97 PG Care Time/CCT Total # of Minutes Spent Total Time Spent with Patient: Total time spent is greater than 50% in coordination of care (as documented) at patient's floor/unit and/or counseling patient: Coding Level of Care Code None Diagnoses History of right below knee amputation Z89.511
[2021-12-23] MEDS: HYDROmorphone PCA 30 MG/30 ML IV PRN ×2 (13:06→14:33)
[2021-12-23] MEDS: SODIUM CHLORIDE 0.9% 1000ML 1,000 ML IV SCH (13:06)
--- NOTE | 2021-12-23 14:12 | Hospitalist Progress Note ---
Date of Service December 23, 2021 Assessment & Plan (1) Abscess of right foot: Plan: 12/11: R foot I&D deep and medial abscess, tenosynovectomy of septic flexor digitorum longus tendon, I&D, medial foot wound dehiscence-- Dr Montaño intra-op cultures - coag neg staph.--> Sensitivities now available and resistant to clindamycin. 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 Hospitalized 12/06 this stay with continued IV daptomycin and IV clindamycin (for anaerobic coveragePrevotella) which has subsequently been changed to Dapto/Invanz at recommendations of infectious disease ID recommended 6 weeks of IV antibiotics from most recent surgical procedure which would've concluded on 01/22 did have PICC but patient removed? (Claims "fell out") Has been receiving IV antibiotics now with wound dehiscence for which repeat MRI done 12/17 showing concern for medial malleoli osteomyelitis and persistent abscess near the hindfoot At this point, patient has failed IV antibiotics and needs a BKA. All prior surgeries done by Dr. Montaño but unfortunately, he is not available until Sunday of next week. He asked that we seek other consultants. Case d/w Dr. Good who performed R BKA on 12/22 Initially on Dilaudid RUBBER AND POUNDER pump earlier this hospitalization and then transitioned to Percocet with Dilaudid for breakthrough. Percocet d/c'd and she was continued on IV Dilaudid alone with plans to reevaluate post amputation. Discussed case with ID, does NOT need rn long term care abx at this time since infected bone removed. Recommended minimum of 3-4 days of post-operative empiric abx. Will continue Dapto and Invanz per previous culture data and plan to d/c prior to d/c. (2) Opioid dependence: Plan: patient has been on opioid medication since this initial wound infection (01/31) has since developed tachyphylaxis Prior provider had lengthy discussion with patient regarding opioid dependence recommending transition to oral pain medication (post surgery) with plan to down taper, of which pt was agreeable Now pt is demanding more pain medication despite receiving IV Dilaudid 1mg q2h prn and threatened to sign out AMA on 12/22 but never followed through On rounds 12/23, pt requesting "pain pump," I explained to her that with her goal being to discharge her to home in the very near future that going back to a RUBBER AND POUNDER would be taking a step backwards. Offered other means of pain control such as consideration of a nerve block (which would need to be d/w and performed by a nesthesia) in order to work on transitioning her to oral narcotic pain regimen and wean off Dilaudid. Pt asked if this would require "a needle" and I explained yes, she then refused this option. Apparently on rounds, general surgery decided to order the RUBBER AND POUNDER as they felt that her pain was not adequately being managed, this was not discussed with medical team prior to ordering. RUBBER AND POUNDER interval will be q15 min I have reached out to pain management regarding this patient as what is in her best interest is to determine an appropriate regimen for her that adequately manages her pain but also can also be continued upon discharge, d/w Venkat Holman who will see patient in consult, appreciate assistance Will plan to start her on oral regimen tomorrow 12/23 and stop the Dilaudid RUBBER AND POUNDER. Can consider ongoing Dilaudid IV for breakthrough but the intervals will need to start being spaced apart in order to ultimately stop (3) Osteomyelitis: Plan: Complicated course: [facility] Diabetic foot ulcer of right 1st and 2nd toe (03/02) following. Seen by orthopedics and referred to wound care at that time Has been hospitalized off and on since 03/02 and primarily on IV antibiotics since 09/03 (initially oral Augmentin and then daptomycin, vancomycin, daptomycin + Flagyl, IV clindamycin + daptomycin, currently daptomycin + Invanz) S/p partial amputation of the first and second toes (Dr. Montaño) S/p multiple I&D's, tenosynovectomy's (Dr. Montaño) Despite multiple debridements and IV antibiotics, there is further progression of her infection which now appears to be involving the medial malleolus with additional abscess formation in the hindfoot Has been seen by vascular: Arterial duplex followed by CT angiogram with runoff. Seen by vascular medicine 09/07/2021 who reports arterial supply adequate to heal surgical wounds Patient has since failed IV antibiotics and multiple debridements and in need of a BKA. Dr. Montaño unavailable until Sunday of next week and asked that we seek other consultants. Plan is for BKA the morning of 12/[address] Good--> greatly appreciate assistance Following BKA, would not need further IV antibiotics thus does not need a PICC line. Would consider short course of oral antibiotics for prophylaxis (prevention of wound infection) (4) Diabetic foot infection: Plan: continue IV Dapto/Invanz (at recommendations of ID) but plan is for BKA thus following removal of infected bone, can likely D/C all antibiotics (5) Nausea & vomiting: Plan: Patient presented to [facility] with nausea and vomiting Prior provider thought perhaps secondary to metronidazole; however, patient reports that she was told to stop this medication and she was not taking it upon arrival. Has had intermittent nausea without vomiting since this hospital stay. She does have underlying diabetes mellitus and perhaps gastroparesis. Now on Reglanhelping. Would D/C with this Patient refused gastric emptying study due to previous workup done by outside facility. In addition, patient is noted to not be on anything for GI prophylaxis. She is on multiple antibiotics and Lovenox. Now on Pepcid for GI prophylaxis (6) Anemia: Plan: Seems to have had post-op anemia following every surgery Noted drop today 9.8 from 11.2, will follow (7) HTN (hypertension): Plan: Controlled on lisinopril, metoprolol succinate, and prn hydralazine Becomes accelerated w/ pain and agitation (8) Diabetes mellitus type 2, uncontrolled: Plan: Hemoglobin A1c has been consistently above 10%. DM NOT controlled (given A1C >10%) but BS currently controlled at this time with lantus + novolog SSI Lengthy discussion with patient regarding the importance of good glycemic control and how this affects wound healing (9) Anxiety: Plan: Ongoing problem for patient Taking Ativan at home which has been continued during this hospital stay. Need to use caution with coadministration of benzodiazepines and opioids Vistaril added which seems to be more effective for patient. Encouraged staff to utilize this over the Ativan Continue sourav (10) DVT prophylaxis: Plan: Continue enoxaparin 40mg daily. Plan: As above, pain management consulted, appreciate assistance in managing this patient. Suspect her leukocytosis is reactive from her surgery yesterday. Continue local wound care. Repeat labs in AM. PT/OT pt is transferring without assistance from bed to bedside commode. Will need an rx for this upon d/c. Ultimately will need referred to orthotics in the future to be fitted for prosthesis once stump heals. Therapy feels that she can be discharged home when she is medically ready. Lengthy discussion with patient regarding importance of compliance for wound healing. Above plan of care has been discussed in detail with Dr. Allan. Admission and Anticipated Discharge Date Admission Date: December 06, 2021 Subjective Patient seen on daily rounds this morning. Pt laying comfortably in bed and is reporting "a lot of pain" at her surgical site. She is requesting pain pump. She denies cp or dyspnea. No n/v/d, f/c, headache, or gu symptoms. Review of Systems Review of Systems: All systems reviewed and are unremarkable except as noted in HPI and below Denies fevers, chills, headache, nasal congestion, sore throat, cough, chest pain, shortness of breath, palpitations, orthopnea, PND, abdominal pain, nausea, vomiting, diarrhea, constipation, dysuria, hematuria, frequency, back pain, easy bruising or bleeding, skin lesions or rashes. Physical Exam Physical Exam: GENERAL: 56 yo well-developed, well-nourished WF. NAD. LUNGS: Clear to auscultation bilaterally. No W/R/R. CARDIOVASCULAR: Regular rate and rhythm. No M/G/R. No JVD. ABDOMEN: Soft, non-tender and non-distended. BS normal x 4 quad. EXTREMITIES: s/p r BKA which is dressed and wrapped in ayad. LLE w/o edema. Non- tender. PT/DP pulses +2/4. NEUROLOGIC: A&O x3. PSYCHIATRIC: Cooperative. Appropriate mood and affect. SKIN: see ext exam. remaining skin warm, dry, intact Results & Data Results & Data ([facility]) Vital Signs (Past 12 Hours) Vital Signs Temp Pulse Resp BP Pulse Ox 12/23/21 07:36 37 C 95 H 18 150/75 H 97 Laboratory Results 12/23/21 08:45 12/23/21 08:45 PG Care Time/CCT Total # of Minutes Spent Total Time Spent with Patient: Total time spent is greater than 50% in coordination of care (as documented) at patient's floor/unit and/or counseling patient: Coding Level of Care Code 60476 Subseq Hosp Care Lvl 3 Diagnoses Abscess of right foot L02.611 Opioid dependence F11.20 Osteomyelitis M86.9 Laterality: right Osteomyelitis location: foot Osteomyelitis type: unspecified type Diabetic foot infection E11.628; L08.9 Nausea & vomiting R11.2 Vomiting type: unspecified Anemia D64.9 HTN (hypertension) I10 Diabetes mellitus type 2, uncontrolled E11.65 Anxiety F41.9 DVT prophylaxis Z29.9 (1) Osteomyelitis Laterality: right Osteomyelitis location: foot Osteomyelitis type: unspecified type Qualified Code(s): M86.9 - Osteomyelitis, unspecified (2) Nausea & vomiting Vomiting type: unspecified Qualified Code(s): R11.2 - Nausea with vomiting, unspecified
--- NOTE | 2021-12-23 14:52 | Pain Management Consultation ---
Date of Consultation December 23, 2021 Assessment & Plan (1) History of right below knee amputation: (2) Opioid dependence: * Plan to discontinue Dilaudid RECORDS MANAGEMENT MANAGER tomorrow * Recommend Nucynta ER 50mg BID and Nucynta IR 50mg x 6 hours PRN pain starting tomorrow in preparation for discharge. * If Nucynta is not improved then I would recommend OxyContin 10mg BID and Percocet 5/5325mg x 6 hours. * Patient plans on discharge on Sunday. Patient is adamant to argue with with incorrect information. States that she did not ask for the Dilaudid RECORDS MANAGEMENT MANAGER but did specifically ask the general surgeon. States that she wants discharged on Percocet (and there is nothing else she will take) because it has previously been helpful but Percocet was previously discontinued due to lack of efficacy. I spoke to her about Nucynta and she starts crying and yelling that I will not give her any post operative medication although I have repeatedly explained that it is an opioid medication. Patient becomes upset and wants to leave AMA. I spoke to the patient again and she is a little calmer and now agreeable to stay in the hospital so she can be transitioned onto appropriate post operative pain medications. History of Present Illness Attending Physician: Sajan Allan MD History of Present Illness Mrs. Witt is a 56 year old female that received a right BKA yesterday. She is currently receiving a Dilaudid RECORDS MANAGEMENT MANAGER for acute pain relief with some relief. Patient has had multiple infections of the foot requiring multiple surgeries. Allergies Allergy/AdvReac Type Severity Reaction Status Date / Time morphine Allergy Severe blisters Verified 12/03/21 20:36 in mouth Sulfa (Sulfonamide Allergy Severe rash/swelli Verified 12/03/21 20:36 Antibiotics) ng iron [From Venofer] Allergy Intermediate Hypertensio Verified 12/03/21 20:36 n vancomycin Allergy Intermediate YULIYA Verified 12/03/21 20:36 SYNDROME---CAN TAKE IF VERY SLOW DRIP. amoxicillin [From Augmentin] Allergy Mild itching/power Verified 12/03/21 20:36 h clavulanic acid Allergy Mild itching/power Verified 12/03/21 20:36 [From Augmentin] h Home Medications Medication Instructions Recorded Confirmed Type nortriptyline 50 mg capsule 100 mg PO HS 10/19/20 12/06/21 History (Pamelor) ropinirole 2 mg tablet 4 mg PO HS 10/19/20 12/06/21 History lancets (OneTouch UltraSoft #100 ea 11/12/20 11/24/21 History Lancets) albuterol sulfate 90 mcg/actuation 1 puff INHALATION QID PRN 03/05/21 12/06/21 History aerosol inhaler (Proventil HFA) metoprolol succinate 50 mg 50 mg PO QAM 03/05/21 12/06/21 History tablet,extended release 24 hr (Toprol XL) insulin glargine 100 unit/mL (3 15 unit SUBCUT HS #1 ml 08/18/21 12/06/21 Rx mL) subcutaneous pen (Basaglar KwikPen U-100 Insulin) insulin lispro 100 unit/mL 3 unit SUBCUT TIDM #1 ml 08/18/21 12/06/21 Rx subcutaneous pen (Humalog KwikPen (U-100) Insulin) aspirin 81 mg tablet,delayed 81 mg PO BID #60 tab 10/04/21 12/06/21 Rx release (Aspirin Low Dose) lisinopril 10 mg tablet 10 mg PO QAM #30 tab 10/04/21 12/06/21 Rx lorazepam 1 mg tablet (Ativan) 1 mg PO TID PRN 11/04/21 12/06/21 History cyclobenzaprine 10 mg tablet 10 mg PO BID tab 11/24/21 12/06/21 History zolpidem 12.5 mg tablet,extended 12.5 mg PO DAILY 11/29/21 12/06/21 History release,multiphase daptomycin 500 mg intravenous 1 dose NOT APPLICABLE UD #1 ea 12/01/21 12/06/21 Rx solution (Cubicin) metronidazole 500 mg tablet 500 mg PO TID 28 Days #84 tab 12/01/21 12/06/21 Rx metformin 500 mg tablet,extended 1,000 mg PO DAILY 12/06/21 History release 24 hr oxycodone-acetaminophen 5 mg-325 1 tab PO Q8 PRN 12/06/21 12/06/21 History mg tablet (Percocet) Patient History Medical History 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 No issues per anesthesia postop progress note. Anemia Cellulitis Chronic back pain Depression Diabetic peripheral neuropathy DM2 (diabetes mellitus, type 2) IDDM, A1c 07/2021-11% Gastritis GIB (gastrointestinal bleeding) History of amputation of great toe Hyperlipidemia Insulin dependent diabetes mellitus Iron deficiency anemia Nonobstructive atherosclerosis of coronary artery Numbness of lower extremity Peripheral neuropathy Right second toe ulcer Seizures Surgical History History of cardiac cath done at [facility]; 09/22/19; LM - mild luminal irregularities. LAD - mid 20-30%, distal with myocardial bridge & 30% stenosis. L Cx - mild luminal irregularities. RCA - proximal <30% stenosis; mid/distal vessel mild plaques. PDA - mild luminal irregularities. History of esophagogastroduodenoscopy (EGD) History of right below knee amputation (12/22/21) Right Below Knee Amputation(Right) - Davon Good MD, FACS Family History Mother , age 63 Myocardial infarction Father , age 68 or 69 Myocardial infarction Brother S/P CABG (coronary artery bypass graft) Sister Myocardial infarction x 3; she is 57yo Social History Smoking Status: Former smoker Tobacco Type: Cigarettes packs per day: 0.5; Years Smoked: 20; Cigarettes Per Day: 20; Second Hand Exposure: No; Do You Dip or Chew Tobacco: No; Tobacco Cessation Education Requested by Patient: No Hx Alcohol Use: No Hx Substance Use: No Preferred Language: Belarusian Communication Ability: Effective Visual Impairment: No Limitations Hearing Ability: Normal Hand Cementer Required: No Beliefs That Will Affect Care: None marital status: Current Living Situation: Spouse and Family current occupational status: unemployed 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 other: raising a grandchild as well; lives in [place] Feels Safe at Home: Yes Safety Concerns: Feels Safe At This Time during the past year weight has: remained stable Assistive Devices: Walker Physical Exam Physical Exam: GENERAL: This is a 56 year old female that is tearful and crying. HEAD/FACE: Normocephalic and atraumatic. EYES: No drainage or conjunctival injection. ENT: Nose without bleeding or discharge. Oral mucosa moist. NECK: Full ROM without apparent pain. No swelling or masses noted. RESPIRATORY: Patient with unlabored breathing. No signs of respiratory distress. CHEST/AXILLA: Chest movement symmetrical. No deformities noted. BACK: Moves without difficulty SKIN: [place], warm and dry. No rash noted. MS/EXTREMITY: No swelling, no deformities. Right BKA bandaged. NEURO: Alert and appears oriented. Speech is fluent. Cranial Nerves are grossly intact. PSYCH: Alert, pleasant, affect is calm
[2021-12-23] MEDS: DAPTOmycin 500 MG in SYRINGE 0 ML IV SCH (16:41)
[2021-12-23] MEDS: ERTAPENEM SODIUM 1,000 MG in SYRINGE 0 ML IV SCH (16:41)
[2021-12-23 19:05] LABS: Appearance Urine Clear (Clear); Bacteria Urine Automated Negative (Negative); Bilirubin Urine Negative (Negative); Blood Urine Negative (Negative); Color Urine Yellow; Epithelial Cell Urine Auto >30 /lpf (0-5); Glucose Urine UA Negative (Negative); Ketones Urine Negative (Negative); Leukocyte Esterase Urine Negative (Negative); Nitrite Urine Negative (Negative); RBC Urine Automated 0-4 /hpf (0-4); Specific Gravity Urine 1.019 (1.000-1.030); Urobilinogen Urine Negative (Negative); pH Urine 7.5 (4.5-7.5)
--- NOTE | 2021-12-23 19:08 | XRay Report ---
XR chest 1V portable HISTORY: Fever COMPARISON: Chest 12/06/2021. FINDINGS: The lungs are clear. Cardiac silhouette is normal in size. No pleural effusions. No pneumot horax. IMPRESSION: No acute process. ACT 112: Negative or not required by law. Electronically signed by: Ernst Murray M.D. 12/23/2021 7:07 PM
[2021-12-23 19:09] LABS: Protein Urine Trace (Negative)
[2021-12-23] MEDS: INSULIN GLARGINE SOLOSTAR 100 UNITS/ML 3 ML PEN SQ SCH (21:34)
[2021-12-23] MEDS: NORTRIPTYLINE HCL 25 MG CAP PO SCH (21:40)
[2021-12-23] MEDS: rOPINIRole HCL 2 MG TABLET PO SCH (21:40)
[2021-12-23] MEDS: ZOLPIDEM TARTRATE 10 MG TAB PO PRN (21:40)
[2021-12-23] MEDS: SENNA 8.6 MG TAB PO SCH (21:41)
[2021-12-24] MEDS: CYCLOBENZAPRINE HCL 10 MG TAB PO PRN ×2 (03:24→22:30)
[2021-12-24] MEDS: ONDANSETRON INJ 2 MG/ML 2 ML VIAL IV PRN ×2 (03:24→20:33)
--- NOTE | 2021-12-24 04:39 | Communication Note ---
Date of Service: December 24, 2021 Messaged about pain. Did not adjust pain regimen overnight as patient is on ed manager and pain improved slightly w/o intervention.
[2021-12-24] MEDS: ACETAMINOPHEN 1,000 MG/100 ML VIAL IV PRN (05:42)
--- NOTE | 2021-12-24 05:55 | Surgery Progress Note ---
Date of Service December 24, 2021 Assessment & Plan (1) History of right below knee amputation: Plan: Continue analgesicsplans noted by pain management to attempt to discontinue SALESPERSON TOY TRAINS AND ACCESSORIES potentially today and changing to oral Nucynta or oral OxyContin Will check CBC this morning and if stable may consider adding DVT prophylaxis Admission and Anticipated Discharge Date Admission Date: December 06, 2021 Subjective Patient notes pain at amputation site. She does not report any fevers. She denies any shortness of breath. Physical Exam Physical Exam: Right lower extremity amputation site is covered with a dressing that is clean, dry, intact. Results & Data ([facility]) Vital Signs (Past 12 Hours) Vital Signs Temp Pulse Pulse Resp BP Pulse Ox 12/24/21 04:25 94 H 17 150/79 H 96 12/24/21 03:50 37.5 C 95 H 19 173/81 H 96 12/24/21 00:00 37.2 C 84 18 112/64 96 12/23/21 20:35 37.0 C 84 16 133/72 98 12/23/21 18:50 37.4 C 91 H 12/23/21 18:17 38.6 C H 91 H 18 142/76 H 98 12/23/21 18:10 37.4 C PG Care Time/CCT Total # of Minutes Spent Total Time Spent with Patient: Total time spent is greater than 50% in coordination of care (as documented) at patient's floor/unit and/or counseling patient: Coding Level of Care Code None Diagnoses History of right below knee amputation Z89.511
[2021-12-24 06:21] LABS: Basophils # (auto) 0.02 K/uL (0-0.2); Basophils % (auto) 0.1 %; Eosinophils # (auto) 0.31 K/uL (0-0.5); Eosinophils % (auto) 2.1 %; Hematocrit (blood only) 29.2 % (37-47); Hemoglobin 9.4 g/dL (12.0-16.0); Immature Granulocytes # (auto) 0.04 K/uL (0.00-0.02); Immature Granulocytes % (auto) 0.3 %; Lymphocytes # (auto) 2.21 K/uL (1.2-3.4); Lymphocytes % (auto) 15.3 %; Mean Corpuscular Hemoglobin 25.1 pg (25-34); Mean Corpuscular Hgb Conc 32.2 g/dL (32-36); Mean Corpuscular Volume 77.9 fL (80-100); Mean Platelet Volume 9.7 fL (7.4-10.4); Monocytes # (auto) 1.93 K/uL (0.11-0.59); Monocytes % (auto) 13.4 %; Neutrophils # (auto) 9.92 K/uL (1.4-6.5); Neutrophils % (auto) 68.8 %; Platelet Count 341 K/uL (130-400); RDW Coefficient of Variation 15.3 % (11.5-14.5); Red Blood Count 3.75 M/uL (4.2-5.4); White Blood Count 14.43 K/uL (4.8-10.8)
[2021-12-24 06:38] LABS: BUN Creatinine Ratio 17.1 (10-20); Calcium 8.7 mg/dl (8.5-10.1); Creatinine Clr Calc Pharmacy 138.9 ml/min; Est GFR (African American) 132.9 ml/min; Est GFR (Non-African American) 114.7 ml/min; Potassium 3.9 mmol/L (3.5-5.1)
[2021-12-24] MEDS: hydrOXYzine HCl 25 MG TAB PO PRN ×2 (07:40→17:19)
[2021-12-24] MEDS: METOCLOPRAMIDE HCL 5 MG TABLET PO SCH ×3 (07:41→18:03)
[2021-12-24] MEDS: FAMOTIDINE 20 MG TAB PO SCH ×2 (09:05→20:02)
[2021-12-24] MEDS: METOPROLOL SUCC 50MG EXT REL TAB PO SCH (09:05)
[2021-12-24] MEDS: ASPIRIN 81 MG ECTAB PO SCH (09:05)
[2021-12-24] MEDS: DOCUSATE SODIUM 100 MG CAP PO SCH ×2 (09:05→20:02)
[2021-12-24] MEDS: LORATADINE 10 MG TAB PO SCH (09:06)
[2021-12-24] MEDS: ADVANCED PROBIOTIC 1250 MG CAPSULE PO SCH (09:06)
[2021-12-24] MEDS: lisinopril 10 MG TAB PO SCH (09:06)
[2021-12-24] MEDS: MULTIVITAMIN TAB PO SCH (09:06)
[2021-12-24] MEDS: INSULIN ASPART PER UNIT SC SCH ×4 (09:26→21:56)
--- NOTE | 2021-12-24 09:51 | Hospitalist Progress Note ---
Date of Service December 24, 2021 Assessment & Plan (1) Abscess of right foot: Plan: 12/11: R foot I&D deep and medial abscess, tenosynovectomy of septic flexor digitorum longus tendon, I&D, medial foot wound dehiscence-- Dr Montaño intra-op cultures - coag neg staph.--> Sensitivities now available and resistant to clindamycin. 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 Hospitalized 12/06 this stay with continued IV daptomycin and IV clindamycin (for anaerobic coveragePrevotella) which has subsequently been changed to Dapto/Invanz at recommendations of infectious disease ID recommended 6 weeks of IV antibiotics from most recent surgical procedure which would've concluded on 01/22 did have PICC but patient removed? (Claims "fell out") Has been receiving IV antibiotics now with wound dehiscence for which repeat MRI done 12/17 showing concern for medial malleoli osteomyelitis and persistent abscess near the hindfoot At this point, patient has failed IV antibiotics All prior surgeries done by Dr. Montaño but unfortunately, he is not available until Sunday of next week. He asked that we seek other consultants. Patient is s/p right BKA on 12/[address] Good (2) Osteomyelitis: Plan: Complicated course: Started [facility] Diabetic foot ulcer of right 1st and 2nd toe (03/02) following. Seen by orthopedics and referred to wound care at that time Has been hospitalized off and on since 03/02 and primarily on IV antibiotics since 09/03 (initially oral Augmentin and then daptomycin, vancomycin, daptomycin + Flagyl, IV clindamycin + daptomycin, currently daptomycin + Invanz) S/p partial amputation of the first and second toes (Dr. Montaño) S/p multiple I&D's, tenosynovectomy's (Dr. Montaño) Despite multiple debridements and IV antibiotics, there is further progression of her infection which now appears to be involving the medial malleolus with additional abscess formation in the hindfoot Has been seen by vascular: Arterial duplex followed by CT angiogram with runoff. Seen by vascular medicine 09/07/2021 who reports arterial supply adequate to heal surgical wounds Patient has since failed IV antibiotics and multiple debridements and in need of a BKA. Dr. Montaño unavailable until Sunday of next week and asked that we seek other consultants. Now s/p right BKA done 12/22 (3) S/P BKA (below knee amputation): Plan: Done 12/[address] Good Uneventful perioperative course Patient now with fever (101.48 F on 12/23), leukocytosis (14.43) and clinical evidence of cellulitis although incision itself is clean and dry Venous Doppler obtained showing no evidence of DVT CRP uptrendin.83 (was 0.57), ESR uptrendin (was 44). 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 Continue Lovenox for DVT prophylaxis (4) Opioid dependence: Plan: patient has been on opioid medication since this initial wound infection (01/31) has since developed tachyphylaxis lengthy discussion with patient regarding opioid dependence recommending transition to oral pain medication (post surgery) with plan to down taper, of which pt was agreeable pt is demanding more pain medication despite receiving IV Dilaudid 1mg q2h prn and threatened to sign out AMA on 12/22 but never followed through On rounds 12/23, pt requesting "pain pump,". It was explained to her that with her goal being to discharge her to home in the very near future that going back to a [employer] would be taking a step backwards. Offered other means of pain control such as consideration of a nerve block (which would need to be d/w and performed by anesthesia) in order to work on transitioning her to oral narcotic pain regimen and wean off Dilaudid. Pt asked if this would require "a needle" and I explained yes, she then refused this option. [employer] pump ordered by general surgery on 12/23 Pain management consultedappreciate assistance. Recommendations are for transition of Dilaudid pain pump to Nucynta extended release with immediate release for breakthrough pain. Patient very unhappy with this and reports that she only wants Percocet. I explained in great detail that when I was taking care of her last week, Percocet was not controlling her pain (and she was utilizing both oral Percocet and IV Dilaudid that was ordered for breakthrough pain) 12/24: Transition Dilaudid [employer] pump to oral Nucynta starting with this evening's dose ([employer] pump to DC at 1800 with transition to Nucynta at 2100) (5) Diabetic foot infection: Plan: S/p BKA (6) Nausea & vomiting: Plan: Patient presented to [facility] with nausea and vomiting Prior provider thought perhaps secondary to metronidazole; however, patient reports that she was told to stop this medication and she was not taking it upon arrival. Has had intermittent nausea without vomiting since this hospital stay. She does have underlying diabetes mellitus and perhaps gastroparesis. Now on Reglanhelping. Would D/C with this Patient refused gastric emptying study due to previous workup done by outside facility. In addition, patient is noted to not be on anything for GI prophylaxis. She is on multiple antibiotics and Lovenox. Now on Pepcid for GI prophylaxis (7) Anemia: Plan: Seems to have had post-op anemia following every surgery Noted drop today 9.4 from 11.2, will follow (8) HTN (hypertension): Plan: Controlled on lisinopril, metoprolol succinate, and prn hydralazine Becomes accelerated w/ pain and agitation (9) Diabetes mellitus type 2, uncontrolled: Plan: Hemoglobin A1c has been consistently above 10%. DM NOT controlled (given A1C >10%) but BS currently controlled at this time with lantus + novolog SSI Lengthy discussion with patient regarding the importance of good glycemic control and how this affects wound healing (10) Anxiety: Plan: Ongoing problem for patient Taking Ativan at home which has been continued during this hospital stay. Need to use caution with coadministration of benzodiazepines and opioids Vistaril added which seems to be more effective for patient. Encouraged staff to utilize this over the Ativan Continue sourav (11) DVT prophylaxis: Plan: Continue enoxaparin 40mg daily. Plan: Plan of care discussed with Dr. Leonard Admission and Anticipated Discharge Date Admission Date: December 06, 2021 Subjective Patient seen on daily rounds today. Crying throughout the entire exam reporting that she is in "terrible pain". Has been since seen by pain management who discussed transition of [employer] pump to Nucynta (both long-acting and short acting). Patient reports "that Wants to take all of my pain medication away". I explained in great detail that Nucynta is a form of pain control. Patient reports that she refuses to leave this hospital with "anything but Percocet". In talking with her, I explained that last week Percocet was not controlling her pain which is why we were utilizing Nucynta. She reports that she is in excruciating pain and "no one wants to help her". She does have increasing erythema/edema of the right stump. Her white blood cell count remains elevated and she did have a fever spike last evening. A venous Doppler was obtained showing no evidence of DVT. This is concerning for cellulitis which has since developed despite being on IV daptomycin and Invanz. Again, patient has been on daptomycin predominantly since August. Review of Systems Review of Systems: All systems reviewed and are unremarkable except as noted in HPI and below Denies fevers, chills, headache, nasal congestion, sore throat, cough, chest pain, shortness of breath, palpitations, orthopnea, PND, abdominal pain, nausea, vomiting, diarrhea, constipation, dysuria, hematuria, frequency, back pain, easy bruising or bleeding, skin lesions or rashes. Physical Exam Physical Exam: General: Resting comfortably in her hospital bed. Tearful throughout most of the exam today HEENT: Head is AT/NC. Buccal mucosa is moist and pink Neck: No JVD. Negative hepatojugular reflex Cardiac: RRR with 1/6 ROME Lungs: CTA without W/R/R Abdomen: Normoactive X4. Soft and nontender in all quadrants. Extremities: Right lower extremity with intact incision at the stump base. The incision itself is dry without erythema. The erythema starts just above the incision and tracks proximally over the knee. The knee is warm and tender to touch Neuro: A&O X4. Cranial nerves II through XII are grossly intact. No focal neuro deficits Skin: No obvious skin lesions or rashes Psych: Tearful at times. No acute distress Results & Data Results & Data ([facility]) Vital Signs (Past 12 Hours) Vital Signs Temp Pulse Pulse Resp BP Pulse Ox 12/24/21 07:31 36.9 C 106 H 18 153/69 H 95 12/24/21 04:25 94 H 17 150/79 H 96 12/24/21 03:50 37.5 C 95 H 19 173/81 H 96 12/24/21 00:00 37.2 C 84 18 112/64 96 Laboratory Results 12/24/21 05:42 12/24/21 05:42 PG Care Time/CCT Total # of Minutes Spent Total Time Spent with Patient: Total time spent is greater than 50% in coordination of care (as documented) at patient's floor/unit and/or counseling patient: Coding Level of Care Code 09498 Subseq Hosp Care Lvl 3 Diagnoses Abscess of right foot L02.611 Opioid dependence F11.20 Osteomyelitis M86.9 Laterality: right Osteomyelitis location: foot Osteomyelitis type: unspecified type Diabetic foot infection E11.628; L08.9 Nausea & vomiting R11.2 Vomiting type: unspecified Anemia D64.9 HTN (hypertension) I10 Diabetes mellitus type 2, uncontrolled E11.65 Anxiety F41.9 DVT prophylaxis Z29.9 S/P BKA (below knee amputation) Z89.519 (1) Nausea & vomiting Vomiting type: unspecified Qualified Code(s): R11.2 - Nausea with vomiting, unspecified (2) Osteomyelitis Laterality: right Osteomyelitis location: foot Osteomyelitis type: unspecified type Qualified Code(s): M86.9 - Osteomyelitis, unspecified
--- NOTE | 2021-12-24 10:47 | Ultrasound Report ---
US venous doppler LE RT CLINICAL HISTORY: edema, erythema TECHNIQUE: Right lower extremity real-time compression venous ultrasound with Color Doppler imaging. Utilizing real-time ultrasonic imaging multiple real time high-resolution ultrasonic images with comp ression and noncompression maneuvers of the deep venous system in addition to color doppler imaging w ere performed from the common femoral vein through the proximal calf veins. COMPARISON: None available at the time of this dictation. FINDINGS: No current evidence of acute thrombosis is identified. Patient is status post right lower extremity a mputation below the knee. Impression: No evidence of deep venous thrombus. ACT 112: Negative or not required by law. Electronically signed by: Neil Mendieta M.D. 12/24/2021 10:46 AM
[2021-12-24] MEDS: ENOXAPARIN INJ 40 MG/0.4 ML SYR SQ SCH (10:50)
[2021-12-24] MEDS ORDERED: MEROPENEM CONSULT ACTIVE PRN (11:31)
[2021-12-24] MEDS ORDERED: VANCOMYCIN HCL 1,500 MG in SODIUM CHLORIDE 0.9% 500 ML IV ONE (11:31)
[2021-12-24] MEDS ORDERED: VANCOMYCIN CONSULT ACTIVE PRN (11:31)
[2021-12-24] MEDS ORDERED: VANCOMYCIN HCL 1,750 MG in SODIUM CHLORIDE 0.9% 500 ML IV STA (12:06)
[2021-12-24] MEDS ORDERED: OPTIRAY 320 100ml IV ONE (12:14)
--- NOTE | 2021-12-24 12:31 | CT Scan Report ---
CT knee RT w con CLINICAL HISTORY: cellulitis over knee- r/o septic joint TECHNIQUE: Multidetector row helical CT of the right knee was performed without intravenous contrast. Coronal and sagittal reformations were obtained. Automated dose lowering techniques and/or adjustmen t according to patient size were utilized for this examination. CT DOSE: 225.64 mGy.cm Comparison: None available at the time of this dictation. FINDINGS: The osseous structures are without fracture or dislocation. The joint spaces are maintained. Patient is status post below-knee amputation. No focal erosions are seen to suggest osteomyelitis. Diffuse so ft tissue swelling is seen in the distal stump with multiple foci of air. No drainable fluid collecti on is seen. IMPRESSION: Findings are compatible with cellulitis without drainable abscess or osteomyelitis. ACT 112: Negative or not required by law. Electronically signed by: Neil Mendieta M.D. 12/24/2021 12:30 PM
[2021-12-24] MEDS: MEROPENEM 500 MG in SYRINGE 0 ML IV SCH ×2 (14:42→20:01)
[2021-12-24] MEDS: SODIUM CHLORIDE 0.9% 1000ML 1,000 ML IV SCH (18:19)
[2021-12-24] MEDS: VANCOMYCIN HCL 1,250 MG in SODIUM CHLORIDE 0.9% 250 ML IV SCH (20:01)
[2021-12-24] MEDS: rOPINIRole HCL 2 MG TABLET PO SCH (20:01)
[2021-12-24] MEDS: SENNA 8.6 MG TAB PO SCH (20:02)
[2021-12-24] MEDS: NORTRIPTYLINE HCL 25 MG CAP PO SCH (20:02)
[2021-12-24] MEDS: TAPENTADOL HCL ER 50 MG TABCR PO SCH (20:33)
[2021-12-24] MEDS: ZOLPIDEM TARTRATE 10 MG TAB PO PRN (20:33)
[2021-12-24] MEDS: TAPENTADOL HCL 50 MG TAB PO PRN (21:43)
--- NOTE | 2021-12-24 22:09 | Communication Note ---
Date of Service: December 24, 2021 9:30 pm -- Patient requested to speak to physician concerning her uncontrollable pain and pain medication regimen. On my arrival to the room, patient laying in bed with blanket pulled up over her face crying. Patient crying "how can people expect for my leg to be cut off and then tell me I'm not in pain." I attempted to reassure patient that nobody thinks she isn't in pain but that the team is trying to find an appropriate pain medication regimen. Myself and RN removed dressing to evaluate right BKA stump -- wendi in place, no bleeding, no discharge. Throughout exam patient screaming and crying "it hurts." I tried to explain to patient that the team, including pain management, is trying to find an appropriate pain medication regimen for her at this time and that she is currently on Nucynta both short acting and long acting. When I told patient that I am not making changes to her pain medication regimen at this time, she immediately stopped crying and started yelling at me stating "you're just another heartless fucking doctor that doesn't want to help me. I'll buy my own pills. You fucking doctors. Don't fucking come back into my room." After leaving patient's room, I was again notified by RN that patient "is miserable; threatening to throw herself on the floor and fall." RN turned bed alarm on but patient stated that she "knows how to turn off bed alarm." Ordered 1:1 sitter for patient safety. Offered dose of Ativan that is already ordered prn for anxiety but patient refusing. 12/25/21 at 4:00 am -- Updated that patient is now calm and resting comfortably/sleeping.
[2021-12-24] MEDS: LORazepam 1 MG TAB PO PRN (22:30)
[2021-12-24] MEDS: INSULIN GLARGINE SOLOSTAR 100 UNITS/ML 3 ML PEN SQ SCH (22:35)
[2021-12-24] MEDS: MELATONIN 3 MG TAB PO PRN (22:44)
[2021-12-25] MEDS: MEROPENEM 500 MG in SYRINGE 0 ML IV SCH ×4 (02:58→19:54)
[2021-12-25] MEDS: VANCOMYCIN HCL 1,250 MG in SODIUM CHLORIDE 0.9% 250 ML IV SCH ×2 (02:59→13:57)
[2021-12-25] MEDS: TAPENTADOL HCL 50 MG TAB PO PRN (03:07)
[2021-12-25] MEDS: hydrOXYzine HCl 25 MG TAB PO PRN ×3 (04:42→21:20)
[2021-12-25] MEDS ORDERED: oxyCODONE/ACETAMINOPHEN 5mg/325mg TAB PO STA (05:22)
[2021-12-25] MEDS ORDERED: oxyCODONE/ACETAMINOPHEN 5mg/325mg TAB PO ONE (05:34)
[2021-12-25 06:04] LABS: Hematocrit (blood only) 29.6 % (37-47); Hemoglobin 9.5 g/dL (12.0-16.0); Mean Corpuscular Hemoglobin 24.9 pg (25-34); Mean Corpuscular Hgb Conc 32.1 g/dL (32-36); Mean Corpuscular Volume 77.5 fL (80-100); Mean Platelet Volume 9.6 fL (7.4-10.4); Platelet Count 334 K/uL (130-400); RDW Coefficient of Variation 15.1 % (11.5-14.5); RDW Standard Deviation 43.2 fL (36.4-46.3); Red Blood Count 3.82 M/uL (4.2-5.4); White Blood Count 11.94 K/uL (4.8-10.8)
--- NOTE | 2021-12-25 06:04 | Surgery Progress Note ---
Date of Service December 25, 2021 Assessment & Plan (1) S/P BKA (below knee amputation): Plan: Status post right below-knee amputation on 12/22/2021 (postop day #3) Continue antibiotics as directed by primary service Patient was noted to have fevers on 12/23/2021 but has not had any since then, she is currently receiving antibiotic the form of ertapenem and vancomycin Continue pain management measures; she has been transitioned to oral Nucynta Lovenox started on 12/24/2021 as H&H noted to be stable after surgery As above. Patient continues to complain of considerable pain. There is some erythema proximal to the amputation site which has progressed over the last 1 to 2 days. I did change the dressing today. The incision itself looks okay but there is possibly a little bit of posterior fluid. There is erythema extending for several inches above the incision. Her antibiotics appear to been changed yesterday to meropenem and vancomycin. Her white blood cell count has decreased and she has been afebrile. Because of the pain and redness I will order a CT scan to ensure there is not a fluid collection that may need to be drained. Pain management on board regarding her pain. Admission and Anticipated Discharge Date Admission Date: December 06, 2021 Subjective Patient is resting in bed. She notes continued pain at her amputation site. No other complaints offered this morning. Physical Exam Physical Exam: Amputation site has dressing in place that is clean, dry, intact. Results & Data ([facility]) Vital Signs (Past 12 Hours) Vital Signs Temp Pulse Resp BP Pulse Ox 12/24/21 21:27 37.1 C 99 H 20 142/77 H 99 PG Care Time/CCT Total # of Minutes Spent Total Time Spent with Patient: Total time spent is greater than 50% in coordination of care (as documented) at patient's floor/unit and/or counseling patient: Coding Level of Care Code None Diagnoses S/P BKA (below knee amputation) Z89.519
[2021-12-25 06:17] LABS: Creatinine Clr Calc Pharmacy 142.3 ml/min; Est GFR (Non-African American) 115.6 ml/min; Immunoglobulin A 354.7 mg/dl (70-400); Immunoglobulin G 632.1 mg/dl (635-1741); Immunoglobulin M 79.4 mg/dl (45-281); Magnesium 1.6 mg/dl (1.7-2.4); Potassium 3.9 mmol/L (3.5-5.1)
[2021-12-25] MEDS: ENOXAPARIN INJ 40 MG/0.4 ML SYR SQ SCH (08:18)
[2021-12-25] MEDS: ASPIRIN 81 MG ECTAB PO SCH (08:18)
[2021-12-25] MEDS: MULTIVITAMIN TAB PO SCH (08:18)
[2021-12-25] MEDS: FAMOTIDINE 20 MG TAB PO SCH ×2 (08:18→21:08)
[2021-12-25] MEDS: METOPROLOL SUCC 50MG EXT REL TAB PO SCH (08:18)
[2021-12-25] MEDS: ADVANCED PROBIOTIC 1250 MG CAPSULE PO SCH (08:18)
[2021-12-25] MEDS: LORATADINE 10 MG TAB PO SCH (08:18)
[2021-12-25] MEDS: lisinopril 10 MG TAB PO SCH (08:19)
[2021-12-25] MEDS: DOCUSATE SODIUM 100 MG CAP PO SCH ×2 (08:19→21:08)
[2021-12-25] MEDS: METOCLOPRAMIDE HCL 5 MG TABLET PO SCH ×3 (08:19→16:57)
[2021-12-25] MEDS: TAPENTADOL HCL ER 50 MG TABCR PO SCH (08:23)
[2021-12-25] MEDS: INSULIN ASPART PER UNIT SC SCH ×4 (08:46→21:44)
--- NOTE | 2021-12-25 09:42 | CT Scan Report ---
RIGHT FEMUR CT CT DOSE: 373.88 mGy.cm HISTORY: Right leg swelling. r/o post-op abscess TECHNIQUE: Multiaxial CT images of the right femur were performed and reformatted in the sagittal and coronal plane without the use of contrast. A dose lowering technique was utilized adhering to the p rinciples of NATALIE. COMPARISON: Right knee 12/24/2021. FINDINGS: There is subcutaneous edema seen within the distal right thigh. There is also subcutaneous and deep soft tissue edema within the proximal right lower leg which is only partially visualized on this study. There is small amount of soft tissue gas also seen within the proximal right lower leg. T his is unchanged and better appreciated on the prior right knee CT. This likely corresponds the patie nt's history of a recent [id number] amputation. No loculated fluid collections on this noncontras t study to suggest an abscess. No significant knee effusion. No fracture or dislocation within the ri ght femur. No destructive changes to suggest an osteomyelitis. Cortical irregularity at the proximal tibia/fibular is secondary to motion artifact. Mild osteoporosis within the right hip. IMPRESSION: 1. Mild subcutaneous edema seen within the distal right thigh. No loculated fluid collections to sugg est an abscess. 2. Subcutaneous and deep soft tissue edema with small foci of soft tissue gas again noted within the proximal right lower leg. This is unchanged and better appreciated on the prior knee CT. This likely corresponds to the patient's history of a recent below the knee amputation. ACT 112: Negative or not required by law. Electronically signed by: Ernst Murray M.D. 12/25/2021 9:40 AM
[2021-12-25] MEDS: MAGNESIUM SULFATE / D5W 1 GM/100 ML BAG IV SCH ×2 (09:57→11:56)
[2021-12-25] MEDS: oxyCODONE/ACETAMINOPHEN 5mg/325mg TAB PO PRN ×3 (11:41→22:40)
--- NOTE | 2021-12-25 15:35 | Hospitalist Progress Note ---
Date of Service December 25, 2021 Assessment & Plan (1) S/P BKA (below knee amputation): Plan: Done 12/[address] Good Uneventful perioperative course Patient now with fever (101.48 F on 12/23), leukocytosis (14.43) and clinical evidence of cellulitis although incision itself is clean and dry Venous Doppler obtained showing no evidence of DVT CRP uptrendin.83 (was 0.57), ESR uptrendin (was 44). 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 Hospitalized 12/06 this stay with continued IV daptomycin and IV clindamycin (for anaerobic coveragePrevotella) which has subsequently been changed to Dapto/Invanz at recommendations of infectious disease ID recommended 6 weeks of IV antibiotics from most recent surgical procedure which would've concluded on 01/22 did have PICC but patient removed? (Claims "fell out") Had been receiving IV antibiotics but developed wound dehiscence for which repeat MRI done 12/17 showing concern for medial malleoli osteomyelitis and persistent abscess near the hindfoot At this point, patient has failed IV antibiotics All prior surgeries done by Dr. Montaño but unfortunately he was not available to perform BKA, thus Dr. Good consulted and underwent BKA on 12/22 (3) Osteomyelitis: Plan: Complicated course: Started [facility] Diabetic foot ulcer of right 1st and 2nd toe (03/02) following. Seen by orthopedics and referred to wound care at that time Has been hospitalized off and on since 03/02 and primarily on IV antibiotics since 09/03 (initially oral Augmentin and then daptomycin, vancomycin, daptomycin + Flagyl, IV clindamycin + daptomycin, currently daptomycin + Invanz) S/p partial amputation of the first and second toes (Dr. Montñao) S/p multiple I&D's, tenosynovectomy's (Dr. Montaño) Despite multiple debridements and IV antibiotics, there is further progression of her infection which now appears to be involving the medial malleolus with additional abscess formation in the hindfoot Has been seen by vascular: Arterial duplex followed by CT angiogram with runoff. Seen by vascular medicine 09/07/2021 who reports arterial supply adequate to heal surgical wounds Patient has since failed IV antibiotics and multiple debridements and in need of a BKA. Dr. Montaño unavailable until Sunday of next week and asked that we seek other consultants. Now s/p right BKA done 12/22 (4) Opioid dependence: Plan: patient has been on opioid medication since this initial wound infection (01/31) has since developed tachyphylaxis lengthy discussion with patient regarding opioid dependence recommending transition to oral pain medication (post surgery) with plan to down taper, of which pt was agreeable pt demanding more pain medication despite receiving IV Dilaudid 1mg q2h prn and threatened to sign out AMA on 12/22 but never followed through On rounds 12/23, pt requesting "pain pump,". It was explained to her that with her goal being to discharge her to home in the very near future that going back to a [employer] would be taking a step backwards. Offered other means of pain control such as consideration of a nerve block (which would need to be d/w and performed by anesthesia) in order to work on transitioning her to oral narcotic pain regimen and wean off Dilaudid. Pt asked if this would require "a needle" and I explained yes, she then refused this option. [employer] pump ordered by general surgery on 12/23 Pain management consultedappreciate assistance. Recommendations are for transition of Dilaudid pain pump to Nucynta extended release with immediate release for breakthrough pain. Patient very unhappy with this and reports that she only wants Percocet. I explained in great detail that when I was taking care of her last week, Percocet was not controlling her pain (and she was utilizing both oral Percocet and IV Dilaudid that was ordered for breakthrough pain) 12/24: Transition Dilaudid [employer] pump to oral Nucynta starting with this evening's dose (RN [employer] pump to DC at 1800 with transition to Nucynta at 2100) 12/25: Pt requesting Percocet over Nucynta as she felt relief with dose given this morning. As I personally discussed this case with Venkat Madrid PA-C from pain management, will change her regimen (of short/long acting Nucynta) to the other proposed regimen Oxycontin 10mg BID and Percocet 5/325mg (2 tabs) q4h for breakthrough. May need to uptitrate the long acting to 20mg BID to achieve better pain control. Ultimately, goal is to titrate her OFF of pain medications. Would advise o/p follow up with pain management but suspect she will not be compliant with this recommendation. (5) Diabetic foot infection: Plan: S/p BKA (6) Nausea & vomiting: Plan: Patient presented to [facility] with nausea and vomiting Prior provider thought perhaps secondary to metronidazole; however, patient reports that she was told to stop this medication and she was not taking it upon arrival. Has had intermittent nausea without vomiting since this hospital stay. She does have underlying diabetes mellitus and perhaps gastroparesis. Now on Reglanhelping. Would D/C with this Patient refused gastric emptying study due to previous workup done by outside facility. In addition, patient is noted to not be on anything for GI prophylaxis. She is on multiple antibiotics and Lovenox. Now on Pepcid for GI prophylaxis (7) Anemia: Plan: Seems to have had post-op anemia following every surgery Noted drop today 9.4 from 11.2, will follow (8) HTN (hypertension): Plan: Controlled on lisinopril, metoprolol succinate, and prn hydralazine Becomes accelerated w/ pain and agitation (9) Diabetes mellitus type 2, uncontrolled: Plan: Hemoglobin A1c has been consistently above 10%. DM NOT controlled (given A1C >10%) but BS currently controlled at this time with lantus + novolog SSI Lengthy discussion with patient regarding the importance of good glycemic con trol and how this affects wound healing (10) Anxiety: Plan: Ongoing problem for patient Taking Ativan at home which has been continued during this hospital stay. Need to use caution with coadministration of benzodiazepines and opioids Vistaril added which seems to be more effective for patient. Encouraged staff to utilize this over the Ativan Continue pamelor (11) DVT prophylaxis: Plan: Continue enoxaparin 40mg daily. Plan: Plan of care discussed with Dr. Leonard Admission and Anticipated Discharge Date Admission Date: December 06, 2021 Subjective Patient is seen on daily rounds this morning. She continues to vocalize complaints of pain at surgical site; however, her pain control has been a daily complaint throughout her hospitalization. Pain management is following. She states that the dose of Percocet that was ordered for her this morning provided some relief and helped her sleep. She is requesting that Percocet be reordered. She continues to have redness stemming from her surgical site. RNs have reported that pt has removed her dressing and manipulated her wound despite being instructed not to do so. No documented fevers since 12/23 @ 1817. Antibiotics were broadened on 12/24 to Merrem and Dapto changed to Vancomycin. Review of Systems Review of Systems: All systems reviewed and are unremarkable except as noted in HPI and below +pain at surgical BKA site. +redness from surgical site. Denies fevers, chills, headache, nasal congestion, sore throat, cough, chest pain, shortness of breath, palpitations, orthopnea, PND, abdominal pain, nausea, vomiting, diarrhea, constipation, dysuria, hematuria, frequency, back pain, easy bruising or bleeding, skin lesions or rashes. Physical Exam Physical Exam: GENERAL: 56 yo well-developed, well-nourished WF. NAD. LUNGS: Clear to auscultation bilaterally. No W/R/R. CARDIOVASCULAR: Regular rate and rhythm. No M/G/R. No JVD. ABDOMEN: Soft, non-tender and non-distended. BS normal x 4 quad. EXTREMITIES: s/p r BKA which is dressed and wrapped in ayad. Erythema extending from incision site. NEUROLOGIC: A&O x3. PSYCHIATRIC: Cooperative. Appropriate mood and affect. SKIN: see ext exam. remaining skin warm, dry, intact Results & Data Results & Data ([facility]) Vital Signs (Past 12 Hours) Vital Signs Temp Pulse Resp BP Pulse Ox 12/25/21 15:01 36.6 C 77 16 95/58 L 95 12/25/21 07:11 36.6 C 94 H 17 146/72 H 101 H Laboratory Results 12/25/21 05:25 12/25/21 05:[address] 12/25/21 08:[address] DOSE: 373.88 mGy.cm HISTORY: Right leg swelling. r/o post-op abscess TECHNIQUE: Multiaxial CT images of the right femur were performed and re formatted in the sagittal and coronal plane without the use of contrast. A dose lowering technique was utilized adhering to the principles of ALARA. COMPARISON: Right knee 12/24/2021. FINDINGS: There is subcutaneous edema seen within the distal right thigh. There is also subcutaneous and deep soft tissue edema within the proximal right lower leg which is only partially visualized on this study. There is small amount of soft tissue gas also seen within the proximal right lower leg. This is unchanged and better appreciated on the prior right knee CT. This likely corresponds the patient's history of a recent [id number] amputation. No loculated fluid collections on this noncontrast study to suggest an abscess. No significant knee effusion. No fracture or dislocation within the right femur. No destructive changes to suggest an osteomyelitis. Cortical irregularity at the proximal tibi a/fibular is secondary to motion artifact. Mild osteoporosis within the right hip. IMPRESSION: 1. Mild subcutaneous edema seen within the distal right thigh. No loculated fluid collections to suggest an abscess. 2. Subcutaneous and deep soft tissue edema with small foci of soft tissue gas again noted within the proximal right lower leg. This is unchanged and better appreciated on the prior knee CT. This likely corresponds to the patient's history of a recent below the knee amputation. ACT 112: Negative or not required by law. Electronically signed by: Ernst Murray M.D. 12/25/2021 9:40 AM PG Care Time/CCT Total # of Minutes Spent Total Time Spent with Patient: Total time spent is greater than 50% in coordination of care (as documented) at patient's floor/unit and/or counseling patient: Coding Level of Care Code 83899 Subseq Hosp Care Lvl 3 Diagnoses Abscess of right foot L02.611 Osteomyelitis M86.9 Laterality: right Osteomyelitis location: foot Osteomyelitis type: unspecified type S/P BKA (below knee amputation) Z89.519 Opioid dependence F11.20 Diabetic foot infection E11.628; L08.9 Nausea & vomiting R11.2 Vomiting type: unspecified Anemia D64.9 HTN (hypertension) I10 Diabetes mellitus type 2, uncontrolled E11.65 Anxiety F41.9 DVT prophylaxis Z29.9 (1) Osteomyelitis Laterality: right Osteomyelitis location: foot Osteomyelitis type: unspecified type Qualified Code(s): M86.9 - Osteomyelitis, unspecified (2) Nausea & vomiting Vomiting type: unspecified Qualified Code(s): R11.2 - Nausea with vomiting, unspecified
--- NOTE | 2021-12-25 15:49 | Pharmacy Report ---
Pharmacy Vanc AUC Short Note - Date of Service December 25, 2021 - Assessment & Plan Assessment * 56 year old F with complicated hospital course and multiple recent antibiotics currently receiving meropenem and vancomycin for treatment of osteomyelitis. BKA performed 12/22 * Pertinent microbiologic data includes: 12/11 foot culture with coag negative Staph resistant to clindamycin and erythromycin Vancomycin * AUC software may not be accurate with prolonged vancomycin infusion (history of Mario's) therefore will use more traditional dosing methods * Level of 8.5 mcg/mL is subtherapeutic. Will increase dose * Of note - increasing from 1250 mg to 1500 mg increases bag size from 250 to 500 mL which is typically inconsequential, but given hx of Redmans, infusion rate will also need to be adjusted. Will maintain infusion rate at ~7.5 mg/min. Plan * Increase vancomycin 1500 mg IV q8h (150 mL/hr) * Trough 12/26 @ 1130 Pharmacy will continue to follow and will adjust dose/frequency as necessary. Thank you.
[2021-12-25] MEDS: VANCOMYCIN HCL 1,500 MG in SODIUM CHLORIDE 0.9% 500 ML IV SCH (20:05)
[2021-12-25] MEDS: NORTRIPTYLINE HCL 25 MG CAP PO SCH (21:08)
[2021-12-25] MEDS: oxyCODONE HCL 10 MG TABCR (OxyCONTIN) PO SCH (21:09)
[2021-12-25] MEDS: rOPINIRole HCL 2 MG TABLET PO SCH (21:09)
[2021-12-25] MEDS: SENNA 8.6 MG TAB PO SCH (21:10)
[2021-12-25] MEDS: ZOLPIDEM TARTRATE 10 MG TAB PO PRN (21:11)
[2021-12-25] MEDS: CYCLOBENZAPRINE HCL 10 MG TAB PO PRN (21:11)
[2021-12-25] MEDS: MELATONIN 3 MG TAB PO PRN (21:11)
[2021-12-25] MEDS: INSULIN GLARGINE SOLOSTAR 100 UNITS/ML 3 ML PEN SQ SCH (21:44)
[2021-12-26] MEDS: LORazepam 1 MG TAB PO PRN (01:24)
[2021-12-26] MEDS: MEROPENEM 500 MG in SYRINGE 0 ML IV SCH ×2 (02:38→09:04)
[2021-12-26] MEDS: VANCOMYCIN HCL 1,500 MG in SODIUM CHLORIDE 0.9% 500 ML IV SCH (03:04)
[2021-12-26] MEDS: oxyCODONE/ACETAMINOPHEN 5mg/325mg TAB PO PRN ×3 (03:05→12:15)
[2021-12-26] MEDS: hydrOXYzine HCl 25 MG TAB PO PRN (05:48)
[2021-12-26] MEDS: ONDANSETRON INJ 2 MG/ML 2 ML VIAL IV PRN (06:28)
--- NOTE | 2021-12-26 07:43 | Surgery Progress Note ---
Date of Service December 26, 2021 Assessment & Plan (1) S/P BKA (below knee amputation): Plan: Patient is 4 days postop right BK amputation for significant recurrent infection of the right foot going up to the ankle The amputation site at this time is healing as expected the pain is really out of proportion on physical findings The patient has had issues with pain management in the past has been seen by pain management at this time and they are modifying her analgesics The lab is pending her white count was coming down over the weekend no labs drawn this morning her blood pressure was slightly elevated and her heart rate is 92 she is afebrile Main issue at this time once the patient can handle oral analgesics and is comfortable that she can be discharged We did rewrap the amputation site with some 4 x 4 and Mikey bandage that will need to be changed on an as-needed basis We will plan to leave the wendi in the operative site for approximately 2 months We will consult physical therapy to start therapy for transfer Admission and Anticipated Discharge Date Admission Date: December 06, 2021 Subjective Having the significant amount of pain crying stating that her pain medicine is not helping Physical Exam Physical Exam: Patient at this time is complaining of significant pain is try to elevate her right thigh Apparently the anterior right thigh was marked for possible cellulitis over the weekend but at this time I do not appreciate any redness at all We remove the dressing from the amputation site is healing well there is no redness no drainage no swelling Results & Data ([facility]) Vital Signs (Past 12 Hours) Vital Signs Temp Pulse Resp BP Pulse Ox 12/26/21 06:15 36.8 C 92 H 20 189/99 H 96 12/25/21 22:07 36.7 C 80 16 156/80 H 99 PG Care Time/CCT Total # of Minutes Spent Total Time Spent with Patient: Total time spent is greater than 50% in coordination of care (as documented) at patient's floor/unit and/or counseling patient: Coding Level of Care Code None Diagnoses S/P BKA (below knee amputation) Z89.519
[2021-12-26 07:51] LABS: Basophils # (auto) 0.03 K/uL (0-0.2); Basophils % (auto) 0.3 %; Eosinophils # (auto) 0.82 K/uL (0-0.5); Eosinophils % (auto) 8.6 %; Hematocrit (blood only) 31.2 % (37-47); Immature Granulocytes # (auto) 0.01 K/uL (0.00-0.02); Immature Granulocytes % (auto) 0.1 %; Lymphocytes # (auto) 1.87 K/uL (1.2-3.4); Lymphocytes % (auto) 19.5 %; Mean Corpuscular Hemoglobin 24.9 pg (25-34); Mean Corpuscular Hgb Conc 32.1 g/dL (32-36); Mean Corpuscular Volume 77.8 fL (80-100); Mean Platelet Volume 9.4 fL (7.4-10.4); Monocytes # (auto) 1.02 K/uL (0.11-0.59); Monocytes % (auto) 10.6 %; Neutrophils # (auto) 5.84 K/uL (1.4-6.5); Neutrophils % (auto) 60.9 %; Platelet Count 367 K/uL (130-400); RDW Coefficient of Variation 14.9 % (11.5-14.5); RDW Standard Deviation 42.9 fL (36.4-46.3); Red Blood Count 4.01 M/uL (4.2-5.4); White Blood Count 9.59 K/uL (4.8-10.8)
[2021-12-26 08:20] LABS: Calcium 8.8 mg/dl (8.5-10.1); Creatinine Clr Calc Pharmacy 138.9 ml/min; Est GFR (African American) 132.9 ml/min; Est GFR (Non-African American) 114.7 ml/min
[2021-12-26] MEDS: INSULIN ASPART PER UNIT SC SCH ×2 (09:03→13:29)
[2021-12-26] MEDS: ADVANCED PROBIOTIC 1250 MG CAPSULE PO SCH (09:04)
[2021-12-26] MEDS: LORATADINE 10 MG TAB PO SCH (09:04)
[2021-12-26] MEDS: ASPIRIN 81 MG ECTAB PO SCH (09:04)
[2021-12-26] MEDS: FAMOTIDINE 20 MG TAB PO SCH (09:04)
[2021-12-26] MEDS: METOPROLOL SUCC 50MG EXT REL TAB PO SCH (09:04)
[2021-12-26] MEDS: METOCLOPRAMIDE HCL 5 MG TABLET PO SCH ×2 (09:05→10:37)
[2021-12-26] MEDS: MULTIVITAMIN TAB PO SCH (09:05)
[2021-12-26] MEDS: lisinopril 10 MG TAB PO SCH (09:05)
[2021-12-26] MEDS: oxyCODONE HCL 10 MG TABCR (OxyCONTIN) PO SCH (09:10)
[2021-12-26] MEDS: DOCUSATE SODIUM 100 MG CAP PO SCH (09:13)
[2021-12-26] MEDS: ENOXAPARIN INJ 40 MG/0.4 ML SYR SQ SCH (09:13)
[2021-12-26] MEDS ORDERED: HYDROmorphone INJ 1 MG/ML SYRINGE IV STA (09:33)
[2021-12-26] MEDS: hydrALAZINE HCL 20 MG/ML VIAL IV PRN (12:37)
--- NOTE | 2021-12-26 12:46 | Discharge Summary ---
Date of Service December 26, 2021 Admission HPI Per Admitting Provider 56yo F w/ hx of diabetic foot ulcer who presents for increasing nausea, vomiting, and pain. Per the patient, she went home in an ok state of health, still struggling with some level of pain control. A day or two ago, she stepped on her foot on the right side and felt a pop. She noted that her sutures had opened up. She has had increasing pain since that time. She notes the pain goes up into her right medial barbosa. She has also had increased throwing up in the last 2 days. She has not taken her Flagyl in 2 days, and did not take her daptomycin today. Principal Diagnosis 1. Status post R BKA d/t R foot/ankle osteomyelitis that failed IV antibiotic therapy 2. Opioid dependence Discharge Exam GENERAL: 56 yo well-developed, well-nourished WF. NAD. LUNGS: Clear to auscultation bilaterally. No W/R/R. CARDIOVASCULAR: Regular rate and rhythm. No M/G/R. No JVD. ABDOMEN: Soft, non-tender and non-distended. BS normal x 4 quad. EXTREMITIES: s/p r BKA which is dressed and wrapped in ayad. Dressing dry. No significant erythema noted today around or stemming from surgical site. NEUROLOGIC: A&O x3. PSYCHIATRIC: Cooperative. Appropriate mood and affect. SKIN: see ext exam. remaining skin warm, dry, intact Discharge Data Allergies Allergy/AdvReac Type Severity Reaction Status Date / Time morphine Allergy Severe blisters Verified 12/03/21 20:36 in mouth Sulfa (Sulfonamide Allergy Severe rash/swelli Verified 12/03/21 20:36 Antibiotics) ng iron [From Venofer] Allergy Intermediate Hypertensio Verified 12/03/21 20:36 n vancomycin Allergy Intermediate YULIYA Verified 12/25/21 15:22 SYNDROME---CAN TAKE IF VERY SLOW DRIP. amoxicillin [From Augmentin] Allergy Mild itching/power Verified 12/03/21 20:36 h clavulanic acid Allergy Mild itching/power Verified 12/03/21 20:36 [From Augmentin] h Consultations 12/06/21 16:42 ED Decision to Admit Stat 12/06/21 20:19 Consult Orthopedic Surgery Routine 12/14/21 14:35 Consult Infectious Diseases Routine 12/20/21 15:39 Consult General Surgery Routine 12/23/21 14:15 Consult Pain Management Routine Procedures Performed Operation Date: 12/11/21 14:00 Actual Procedures p Incision and Drainage Right foot deep medial abscess, tenosynovectomy septic flexor digitorum longus tendon, irrigation debridement medial foot wound dehiscence 2.5 x 1.0 x 0.9 cm including skin, subcutaneous tissue, dermis, fascia and periosteum.(Right) - Akhil Montaño, Operation Date: 12/22/21 09:35 Actual Procedures p Right Below Knee Amputation(Right) - Davon Good MD, FACS Ordered Studies Chest X-Ray 12/06/21 13:18 XR chest 1V portable CLINICAL HISTORY: weakness TECHNIQUE: Single frontal radiograph of the chest was obtained. Comparison: Comparison is made to chest one view 11/09/2021 FINDINGS: No lines and tubes are seen. The cardiomediastinal silhouette is normal. The lungs are clear. No evidence of pleural effusion or pneumothorax. IMPRESSION: No acute chest disease. ACT 112: Negative or not required by law. Electronically signed by: Neil Mendieta M.D. 12/06/2021 2:08 PM Foot X-Ray 12/06/21 13:19 XR foot RT min 3V routine CLINICAL HISTORY: pain, hx osteo COMPARISON: Right foot radiographs December 03, 2021. MRI of the right foot November 24, 2021. FINDINGS: Note is again made of soft tissue swelling surrounding the amputated right first and second toes. No progressive bony destruction is present. Sclerosis and periosteal reaction are similar to prior exam. No acute fracture is identified. There are no radiopaque foreign bodies. Tarsometatarsal joints are intact. IMPRESSION: 1. Soft tissue swelling of the right forefoot, adjacent to the first and second digit amputations which favors cellulitis. 2. No change in appearance of the right first and second metatarsals status post amputation. No evidence for progressive bony destruction. ACT 112: Negative or not required by law. Electronically signed by: Wilver Powell M.D. 12/06/2021 2:06 PM Chest X-Ray 12/06/21 16:12 XR chest 1V portable CLINICAL HISTORY: CHECK PICC LINE PLACEMENT TECHNIQUE: Single frontal radiograph of the chest was obtained. Comparison: Comparison is made to chest one view 09/07/2021 FINDINGS: Left PICC tip is at the cavoatrial junction. The cardiomediastinal silhouette is normal. The lungs are clear. No evidence of pleural effusion or pneumothorax. IMPRESSION: Satisfactory position of the left PICC. ACT 112: Negative or not required by law. Electronically signed by: Neil Mendieta M.D. 12/06/2021 4:33 PM Chest X-Ray 12/06/21 17:10 XR chest 1V portable CLINICAL HISTORY: PICC LINE ADJUSTMENT TECHNIQUE: Single frontal radiograph of the chest was obtained. Comparison: Comparison is made to chest one view 12/06/2021 FINDINGS: Redemonstration of a left PICC with the tip in the cavoatrial junction. The cardiomediastinal silhouette is normal. The lungs are clear. No evidence of pleural effusion or pneumothorax. IMPRESSION: No acute chest disease. ACT 112: Negative or not required by law. Electronically signed by: Neil Mendieta M.D. 12/06/2021 5:28 PM Venous Doppler Study 12/06/21 20:19 ULTRASOUND RIGHT LOWER EXTREMITY VENOUS CLINICAL HISTORY: Right leg pain. COMPARISON STUDY: Right lower extremity venous ultrasound dated 08/09/2021. TECHNIQUE: Real-time, grayscale, and color Doppler sonography of the deep veins of the right lower extremity was performed from the inguinal crease to the calf. Compression and augmentation were utilized. FINDINGS: There is no sonographic evidence of deep venous thrombosis identified in the right lower extremity. The common femoral, superficial femoral, and popliteal veins are patent and normally compressible. The greater saphenous vein and the profunda femoris vein at the junction with the common femoral vein are clear. The visualized calf veins are patent. A mildly enlarged right inguinal lymph node measures 3.9 x 1.1 x 3.4 cm. IMPRESSION: 1. There is no sonographic evidence of deep venous thrombosis identified in the right lower extremity. 2. A prominent right inguinal lymph node is likely reactive. Clinical correlation will be required. ACT 112: Negative or not required by law. Electronically signed by: Finn Bradshaw M.D. 12/07/2021 7:06 AM Ankle MRI 12/10/21 00:00 MR foot RT wo/w con, MR ankle RT wo/w con HISTORY: 56 years-old Female Assess for abscess and osteomyelitis chronic pain of the right foot and ankle COMPARISON: Right foot radiographs 12/06/2021, MRI right foot and ankle 11/24/2021, 11/05/2021, 09/26/2021 TECHNIQUE: Multiplanar multisequence MRI of the right foot and ankle was obtained both with and without the use of 7 cc Gadavist FINDINGS: FOOT: Postoperative changes of the forefoot are redemonstrated with partial amputation of the first and second digits at the level of the metatarsal head neck junctions. Micrometallic artifact within this distribution limits the study. There is unchanged cortical thickening and irregularity with increased T1 and T2 marrow signal notably present involving the first metatarsal. There are no new sites of bony destruction or significant marrow edema identified. There is di ffuse intramuscular and subcutaneous edema with associated enhancement, most pronounced in the plantar tissues. There is a peripherally enhancing 2.1 x 0.7 x 1.4 cm collection within the deep soft tissues of the plantar midfoot, superficial to the navicular cuneiform articulation (image 4 of series 22 and image 17 of series 23). This appears to be new from the prior study and is at least partially intramuscular. No new ligamentous or tendon injury identified. 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 There is a peripherally enhancing "wound of the medial hindfoot and hindfoot midfoot junction measuring approximately 2.8 x 1.5 cm on image 20 of series 20. This is contiguous with the previously mentioned peripherally enhancing collection as above. There is diffuse intramuscular and soft tissue edema with associated enhancement. Tenosynovitis of the flexor digitorum longus. Mild diffuse nonspecific marrow edema throughout the hindfoot, midfoot and medial malleolus. This is likely reactive. No osseous erosion identified. IMPRESSION: 1. Postoperative changes of the foot and ankle are redemonstrated with prior partial resection of the first and second digits. This has been documented on numerous prior MRI studies. There is unchanged cortical thickening involving the distal aspects of the first and second metatarsals at the amputation stumps with first metatarsal marrow changes again suggestive of osteomyelitis. No new sites of osteomyelitis are identified within the right foot or ankle. 2. Large open wound of the medial hindfoot and midfoot junction is redemonstrated. This is contiguous with a new peripherally enhancing volar midfoot abscess measuring over 2 cm. 3. Diffuse myositis with cellulitis. 4. Mild marrow edema throughout the midfoot, hindfoot and medial malleolus is likely reactive. ACT 112: Negative or not required by law. The above report was generated using voice recognition software. It may contain grammatical, syntax or spelling errors. Electronically signed by: Puneet Howard M.D. 12/10/2021 6:10 PM Foot MRI 12/10/21 00:00 MR foot RT wo/w con, MR ankle RT wo/w con HISTORY: 56 years-old Female Assess for abscess and osteomyelitis chronic pain of the right foot and ankle COMPARISON: Right foot radiographs 12/06/2021, MRI right foot and ankle 11/24/2021, 11/05/2021, 09/26/2021 TECHNIQUE: Multiplanar multisequence MRI of the right foot and ankle was obtained both with and without the use of 7 cc Gadavist FINDINGS: FOOT: Postoperative changes of the forefoot are redemonstrated with partial amputation of the first and second digits at the level of the metatarsal head neck junctions. Micrometallic artifact within this distribution limits the study. Th ere is unchanged cortical thickening and irregularity with increased T1 and T2 marrow signal notably present involving the first metatarsal. There are no new sites of bony destruction or significant marrow edema identified. There is diffuse intramuscular and subcutaneous edema with associated enhancement, most pronounced in the plantar tissues. There is a peripherally enhancing 2.1 x 0.7 x 1.4 cm collection within the deep soft tissues of the plantar midfoot, superficial to the navicular cuneiform articulation (image 4 of series 22 and image 17 of series 23). This appears to be new from the prior study and is at least partially intramuscular. No new ligamentous or tendon injury identified. 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 There is a peripherally enhancing "wound of the medial hindfoot and hindfoot midfoot junction measuring approximately 2.8 x 1.5 cm on image 20 of series 20. This is contiguous with the previously mentioned peripherally enhancing collection as above. There is diffuse intramuscular and soft tissue edema with associated enhancement. Tenosynovitis of the flexor digitorum longus. Mild diffuse nonspecific marrow edema throughout the hindfoot, midfoot and medial malleolus. This is likely reactive. No osseous erosion identified. IMPRESSION: 1. Postoperative changes of the foot and ankle are redemonstrated with prior pa rtial resection of the first and second digits. This has been documented on numerous prior MRI studies. There is unchanged cortical thickening involving the distal aspects of the first and second metatarsals at the amputation stumps with first metatarsal marrow changes again suggestive of osteomyelitis. No new sites of osteomyelitis are identified within the right foot or ankle. 2. Large open wound of the medial hindfoot and midfoot junction is redemonstrated. This is contiguous with a new peripherally enhancing volar midfoot abscess measuring over 2 cm. 3. Diffuse myositis with cellulitis. 4. Mild marrow edema throughout the midfoot, hindfoot and medial malleolus is likely reactive. ACT 112: Negative or not required by law. The above report was generated using voice recognition software. It may contain grammatical, syntax or spelling errors. Electronically signed by: Puneet Howard M.D. 12/10/2021 6:10 PM Ankle MRI 12/17/21 00:00 MR foot RT wo/w con, MR ankle RT wo/w con HISTORY: 56 years-old Female osteomyelitis, wound dehisance chronic pain of the right foot and ankle COMPARISON: Right foot and ankle MRI 12/10/2021 TECHNIQUE: Multiplanar multisequence MRI of the right foot and ankle was obtained both with and without the use of 7 cc Gadavist. FINDINGS: Motion degraded exam. FOOT: Postoperative changes of the forefoot are redemonstrated with partial amputation of the first and second digits at the level of the metatarsal head neck junctions. Micrometallic artifact within this distribution limits the study. T here is unchanged cortical thickening and irregularity with decreased T1 and increased T2 marrow signal notably present involving the first metatarsal. There are no new sites of bony destruction or significant marrow edema identified. There is diffuse intramuscular and subcutaneous edema with associated enhancement, most pronounced in the plantar tissues. The degree of soft tissue edema has worsened. There is a peripherally enhancing collection within the deep soft tissues of the plantar midfoot and ankle, superficial to the navicular cuneiform articulation as described on the ankle MRI study. Again, this is at least partially intramuscular. No new ligamentous or tendon injury identified. 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 There is a peripherally enhancing large wound of the medial hindfoot and hindfoot midfoot junction with more discrete margins now measuring approximately 8.0 x 3.1 cm on image 20 of series 6. This has mildly increased in size from the prior study when measured in a similar fashion. There is diffuse intramuscular and soft tissue edema with associated enhancement, progressed from the prior exam. Tenosynovitis of the flexor digitorum longus. Mild diffuse nonspecific marrow edema throughout the hindfoot, midfoot and medial malleolus. No new sites of osseous erosion identified. IMPRESSION: 1. The patient has had multiple (15) MRI studies of the right lower extremity dating back to July 2021. Again noted are postoperative changes of the foot and ankle with partial resection of the first and second digits. There is unchanged cortical thickening involving the distal aspects of the first and second metatarsals at the amputation stumps with first metatarsal marrow changes again suggestive of osteomyelitis. No new sites of osteomyelitis are identified since the study obtained 7 days earlier. 2. Large open wound of the medial hindfoot and midfoot junction is redemonstrated with a peripherally enhancing fluid collection suggestive of a probable abscess. This has mildly increased in size. 3. Diffuse myositis with cellulitis, also progressed from the prior study. 4. Mild marrow edema throughout the midfoot, hindfoot and medial malleolus may represent reactive osteitis. Developing osteomyelitis of the medial malleolus would be difficult to exclude. ACT 112: Negative or not required by law. The above report was generated using voice recognition software. It may contain grammatical, syntax or spelling errors. Electronically signed by: Puneet Howard M.D. 12/17/2021 3:24 PM Lower Extremity MRI 12/17/21 09:36 MR lower leg RT wo/w con HISTORY: 56 years-old Female osteomyelitis, wound dehisance soft tissue wounds of the right lower leg and ankle. MRI foot and ankle 12/10/2021 COMPARISON: MRI right ankle of same day, MRI right foot and ankle 12/10/2021 TECHNIQUE: Multiplanar multisequence MRI of the right lower leg was obtained both with and without of 7 cc Gadavist FINDINGS: Motion degraded exam. Moderate diffuse edema with minimal enhancement is noted throughout the tibialis posterior musculature extending along the neurovascular bundle. There is thickening of the distal tibialis posterior tendon. No intramuscular abscess. Partially imaged soft tissue edema. Medial ankle. Normal bone marrow signal without acute fracture, dislocation, significant bone marrow edema or osseous erosion. No destructive bone lesions. This study is not tailored to assess the intrinsic structures of the knee or ankle. IMPRESSION: 1. Mildly motion degraded exam. No marrow edema or MRI evidence of acute osteomyelitis. 2. Moderate diffuse edema with minimal enhancement throughout the tibialis posterior musculature is suggestive of myositis versus muscle strain. ACT 112: Negative or not required by law. The above report was generated using voice recognition software. It may contain grammatical, syntax or spelling errors. Electronically signed by: Puneet Howard M.D. 12/17/2021 1:52 PM Foot MRI 12/17/21 09:40 MR foot RT wo/w con, MR ankle RT wo/w con HISTORY: 56 years-old Female osteomyelitis, wound dehisance chronic pain of the right foot and ankle COMPARISON: Right foot and ankle MRI 12/10/2021 TECHNIQUE: Multiplanar multisequence MRI of the right foot and ankle was obtained both with and without the use of 7 cc Gadavist. FINDINGS: Motion degraded exam. FOOT: Postoperative changes of the forefoot are redemonstrated with partial amputation of the first and second digits at the level of the metatarsal head neck junctions. Micrometallic artifact within this distribution limits the study. There is unchanged cortical thickening and irregularity with decreased T1 and increased T2 marrow signal notably present involving the first metatarsal. There are no new sites of bony destruction or significant marrow edema identified. There is diffuse intramuscular and subcutaneous edema with associated enhancement, most pronounced in the plantar tissues. The degree of soft tissue edema has worsened. There is a peripherally enhancing collection within the deep soft tissues of the plantar midfoot and ankle, superficial to the navicular cuneiform articulation as described on the ankle MRI study. Again, this is at least partially intramuscular. No new ligamentous or tendon injury identified. 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 There is a peripherally enhancing large wound of the medial hindfoot and hindfoot midfoot junction with more discrete margins now measuring approximately 8.0 x 3.1 cm on image 20 of series 6. This has mildly increased in size from the prior study when measured in a similar fashion. There is diffuse intramuscular and soft tissue edema with associated enhancement, progressed from the prior exam. Tenosynovitis of the flexor digitorum longus. Mild diffuse nonspecific marrow edema throughout the hindfoot, midfoot and medial malleolus. No new sites of osseous erosion identified. IMPRESSION: 1. The patient has had multiple (15) MRI studies of the right lower extremity dating back to July 2021. Again noted are postoperative changes of the foot and ankle with partial resection of the first and second digits. There is unchanged cortical thickening involving the distal aspects of the first and second metatarsals at the amputation stumps with first metatarsal marrow changes again suggestive of osteomyelitis. No new sites of osteomyelitis are identified since the study obtained 7 days earlier. 2. Large open wound of the medial hindfoot and midfoot junction is redemonstrated with a peripherally enhancing fluid collection suggestive of a probable abscess. This has mildly increased in size. 3. Diffuse myositis with cellulitis, also progressed from the prior study. 4. Mild marrow edema throughout the midfoot, hindfoot and medial malleolus may represent reactive osteitis. Developing osteomyelitis of the medial malleolus would be difficult to exclude. ACT 112: Negative or not required by law. The above report was generated using voice recognition software. It may contain grammatical, syntax or spelling errors. Electronically signed by: Puneet Howard M.D. 12/17/2021 3:24 PM Chest X-Ray 12/23/21 18:32 XR chest 1V portable HISTORY: Fever COMPARISON: Chest 12/06/2021. FINDINGS: The lungs are clear. Cardiac silhouette is normal in size. No pleural effusions. No pneumothorax. IMPRESSION: No acute process. ACT 112: Negative or not required by law. Electronically signed by: Ernst Murray M.D. 12/23/2021 7:07 PM Venous Doppler Study 12/24/21 09:52 US venous doppler LE RT CLINICAL HISTORY: edema, erythema TECHNIQUE: Right lower extremity real-time compression venous ultrasound with Color Doppler imaging. Utilizing real-time ultrasonic imaging multiple real time high-resolution ultrasonic images with compression and noncompression maneuvers of the deep venous system in addition to color doppler imaging were performed from the common femoral vein through the proximal calf veins. COMPARISON: None available at the time of this dictation. FINDINGS: No current evidence of acute thrombosis is identified. Patient is status post right lower extremity amputation below the knee. Impression: No evidence of deep venous thrombus. ACT 112: Negative or not required by law. Electronically signed by: Neil Mendieta M.D. 12/24/2021 10:[address] 12/24/21 11:31 CT knee RT w con CLINICAL HISTORY: cellulitis over knee- r/o septic joint TECHNIQUE: Multidetector row helical CT of the right knee was performed without intravenous contrast. Coronal and sagittal reformations were obtained. Automated dose lowering techniques and/or adjustment according to patient size were utilized for this examination. CT DOSE: 225.64 mGy.cm Comparison: None available at the time of this dictation. FINDINGS: The osseous structures are without fracture or dislocation. The joint spaces are maintained. Patient is status post below-knee amputation. No focal erosions are seen to suggest osteomyelitis. Diffuse soft tissue swelling is seen in the distal stump with multiple foci of air. No drainable fluid collection is seen. IMPRESSION: Findings are compatible with cellulitis without drainable abscess or osteomyelitis. ACT 112: Negative or not required by law. Electronically signed by: Neil Mendieta M.D. 12/24/2021 12:[address] 12/25/21 08:[address] DOSE: 373.88 mGy.cm HISTORY: Right leg swelling. r/o post-op abscess TECHNIQUE: Multiaxial CT images of the right femur were performed and reformatted in the sagittal and coronal plane without the use of contrast. A dose lowering technique was utilized adhering to the principles of ALARA. COMPARISON: Right knee 12/24/2021. FINDINGS: There is subcutaneous edema seen within the distal right thigh. There is also subcutaneous and deep soft tissue edema within the proximal right lower leg which is only partially visualized on this study. There is small amount of soft tissue gas also seen within the proximal right lower leg. This is unchanged and better appreciated on the prior right knee CT. This likely corresponds the patient's history of a recent [id number] amputation. No loculated fluid collections on this noncontrast study to suggest an abscess. No significant knee effusion. No fracture or dislocation within the right femur. No destructive changes to suggest an osteomyelitis. Cortical irregularity at the proximal tibia/fibular is secondary to motion artifact. Mild osteoporosis within the right hip. IMPRESSION: 1. Mild subcutaneous edema seen within the distal right thigh. No loculated fluid collections to suggest an abscess. 2. Subcutaneous and deep soft tissue edema with small foci of soft tissue gas again noted within the proximal right lower leg. This is unchanged and better appreciated on the prior knee CT. This likely corresponds to the patient's history of a recent below the knee amputation. ACT 112: Negative or not required by law. Electronically signed by: Ernst Murray M.D. 12/25/2021 9:40 AM Hospital Course (1) S/P BKA (below knee amputation): Done 12/[address] Good Uneventful perioperative course Patient developed fever (101.48 F on 12/23), leukocytosis (14.43) and clinical evidence of cellulitis on 12/24 (although incision itself is clean and dry) Venous Doppler obtained showing no evidence of DVT CRP uptrendin.83 (was 0.57), ESR uptrendin (was 44). 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 * Change from Dapto to Vanco was made in event of resistance as pt has been on this consistently since July * Unfortunately, with that, Vancomycin trough is subtherapeutic at 8.5 (drawn 12/26) Since erythema overlying the joint space, CT scan performed which did not demonstrate evidence of septic joint or osteomyelitis * General surgery continues to follow, apparently repeat CT obtained this AM with results above, no evidence of abscess Continued on Lovenox for DVT prophylaxis throughout hospitalization Discussed with ID today, Dr. Banerjee, who saw pt in consult earlier this hospitalization. Recommended 7 day (total) course of antibiotics for cellulitis. * Since erythema has almost completely resolved and pt is afebrile, wbc count has normalized, would favor that this is a gram neg organism and not staph/MRSA, as since she has been changed from Dapto to Vanco with a subtherapeutic trough, it would not make sense that pt has improved. Thus, I d/w ID utilizing Levaquin and Zyvox upon discharge of which they were in agreement. Will rx 4 more days for total of 7 days since change of abx regimen. She will require f/u with general surgery in the office in 2 weeks. Appt has been made to see Dr. Good. Home health has been arranged to f/u with her at home, including PT/OT and visiting nurses. They can continue to monitor progress of incision to ensure that it is healing as expected. (2) Abscess of right foot: 12/11: R foot I&D deep and medial abscess, tenosynovectomy of septic flexor digitorum longus tendon, I&D, medial foot wound dehiscence-- Dr Montaño intra-op cultures - coag neg staph.--> Sensitivities now available and resistant to clindamycin. 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 Hospitalized 12/06 this stay with continued IV daptomycin and IV clindamycin (for anaerobic coveragePrevotella) which has subsequently been changed to Dapto/Invanz at recommendations of infectious disease ID recommended 6 weeks of IV antibiotics from most recent surgical procedure which would've concluded on 01/22 did have PICC but patient removed? (Claims "fell out") Had been receiving IV antibiotics but developed wound dehiscence for which repeat MRI done 12/17 showing concern for medial malleoli osteomyelitis and persistent abscess near the hindfoot At this point, patient has failed IV antibiotics All prior surgeries done by Dr. Montaño but unfortunately he was not available to perform BKA, thus Dr. Good consulted and underwent BKA on 12/22 (3) Osteomyelitis: Complicated course: Started health system Diabetic foot ulcer of right 1st and 2nd toe (03/02) following. Seen by orthopedics and referred to wound care at that time Has been hospitalized off and on since 03/02 and primarily on IV antibiotics since 09/03 (initially oral Augmentin and then daptomycin, vancomycin, daptomycin + Flagyl, IV clindamycin + daptomycin, currently daptomycin + Invanz) S/p partial amputation of the first and second toes (Dr. Montaño) S/p multiple I&D's, tenosynovectomy's (Dr. Montaño) Despite multiple debridements and IV antibiotics, there is further progression of her infection which now appears to be involving the medial malleolus with additional abscess formation in the hindfoot Has been seen by vascular: Arterial duplex followed by CT angiogram with runoff. Seen by vascular medicine 09/07/2021 who reports arterial supply adequate to heal surgical wounds Patient has since failed IV antibiotics and multiple debridements and in need of a BKA. Dr. Montaño unavailable until Sunday of next week and asked that we seek other consultants. Now s/p right BKA done 12/22 (4) Opioid dependence: patient has been on opioid medication since this initial wound infection (01/31) has since developed tachyphylaxis lengthy discussion with patient regarding opioid dependence recommending transition to oral pain medication (post surgery) with plan to down taper, of wh ich pt was agreeable pt demanding more pain medication despite receiving IV Dilaudid 1mg q2h prn and threatened to sign out AMA on 12/22 but never followed through On rounds 12/23, pt requesting "pain pump,". It was explained to her that with her goal being to discharge her to home in the very near future that going back to a [employer] would be taking a step backwards. Offered other means of pain control such as consideration of a nerve block (which would need to be d/w and performed by anesthesia) in order to work on transitioning her to oral narcotic pain regimen and wean off Dilaudid. Pt asked if this would require "a needle" and I explained yes, she then refused this option. [employer] pump ordered by general surgery on 12/23 Pain management consultedappreciate assistance. Recommendations are for transition of Dilaudid pain pump to Nucynta extended release with immediate release for breakthrough pain. Patient very unhappy with this and reports that she only wants Percocet. I explained in great detail that when I was taking care of her last week, Percocet was not controlling her pain (and she was utilizing both oral Percocet and IV Dilaudid that was ordered for breakthrough pain) 12/24: Transition Dilaudid [employer] pump to oral Nucynta starting with this evening's dose ([employer] pump to DC at 1800 with transition to Nucynta at 2100) 12/25: Pt requesting Percocet over Nucynta as she felt relief with dose given this morning. As I personally discussed this case with Venkat Madrid PA-C from pain management, will change her regimen (of short/long acting Nucynta) to the other proposed regimen Oxycontin 10mg BID and Percocet 5/325mg (2 tabs) q4h for breakthrough. May need to uptitrate the long acting to 20mg BID to achieve better pain control. Ultimately, goal is to titrate her OFF of pain medications. Attempted to schedule an appt with pain management here, but they would not accept her. Will plan to send her home on regimen as discussed and she will ultimately benefit from pain management referral; however, at this time, will defer to her PCP. He can refer to pain management perhaps in [place]. Although she continues to insist that she is not "addicted," it is very obvious that she is, however, it is quite difficult to argue that she isn't having pain as she did undergo an amputation. Also could be experiencing some phantom limb pain. Unfortunately, she has had multiple prescriptions for percocet and other addictive medications dating back to 2019. She will only receive a 72 hour supply of these medications. She has been advised not to drive or operate any machinery while taking them. (5) Diabetic foot infection: S/p BKA (6) Nausea & vomiting: Patient presented to [facility] with nausea and vomiting Prior provider thought perhaps secondary to metronidazole; however, patient reports that she was told to stop this medication and she was not taking it upon arrival. Has had intermittent nausea without vomiting since this hospital stay. She does have underlying diabetes mellitus and perhaps gastroparesis. Now on Reglanhelping, will continue upon discharge. Patient refused gastric emptying study due to previous workup done by outside facility. Received Pepcid for GI prophylaxis while in house which can be continued upon discharge. (7) Anemia: Seems to have had post-op anemia following every surgery Remains stable (8) HTN (hypertension): Controlled on lisinopril, metoprolol succinate, and prn hydralazine Becomes accelerated w/ pain and agitation (9) Diabetes mellitus type 2, uncontrolled: Hemoglobin A1c has been consistently above 10%. DM NOT controlled (given A1C >10%) but BS currently controlled at this time with lantus + novolog SSI Lengthy discussion with patient regarding the importance of good glycemic control and how this affects wound healing (10) Anxiety: Ongoing problem for patient Taking Ativan at home which has been continued during this hospital stay. Need to use caution with coadministration of benzodiazepines and opioids Vistaril added which seems to be more effective for patient. Encouraged staff to utilize this over the Ativan Continue pamelor At this time, pt is medically and hemodynamically stable for discharge home with home health which has been arranged by case management. Will rx a wheelchair to improve patient's ability to move around due to her BKA status and improve her ability to perform ADLs. She will eventually need referral to orthotics to be fitted for a prosthesis (if she should so wish) but that can be done at a later date. We advise f/u with pcp (which has been scheduled for 12/28). We also advise f/u as scheduled with Dr. Good's office in 2 weeks. Above plan of care has been discussed with Dr. Leonard who has also seen and evaluated this patient and is in agreement with the aforementioned. Total Time Total Time Spent Total Time Spent (In Minutes): >30 minutes Discharge Plan Discharge Items Patient Disposition: Home - Home Health Services Reason For Visit: FOOT INFECTION, NAUSEA AND VOMITING Discharge Diagnosis: Right foot/ankle infection requiring below the knee amputation Activity: As commented below Activity Comment: with use of walker/wheelchair for assistance Non-emergency contact: Primary Care Provider and Surgeon Call non-emergency contact if: you have any medication questions, your symptoms worsen and your temperature is above 101 Follow-up/Referrals: Davon Good MD, FACS [Surgeon] - 01/10/22 1:30 pm () Vince Vernon DO [Primary Care Provider] - 12/28/21 2:20 pm Diet: Carb Consistent or DM2 Addtl Attending Provider Instructions: You were hospitalized due to infection in your right foot and ankle. Unfortunately, despite surgical intervention and IV antibiotic therapy, your wound failed to improve resulting in the need to perform a below the knee amputation. This was done in order to completely remove the infected bone and tissue. Your wound has been progressing/healing well since surgery as expected. You did have a mild case of cellulitis (mild skin/soft tissue infection) but it was confirmed through imaging that there was no abscess, bone infection, or infection in your knee. Your antibiotics were changed to broaden the bacterial coverage and your cellulitis has almost completely resolved. Thus, at this point, can you can be safely discharged on 4 more days of oral antibiotics. * Levaquin 750mg, one tablet by mouth daily, first dose due on 12/27 in the morning * Zyvox 600mg, one tablet twice a day, first dose due on 12/26 this evening Please complete the course of antibiotics as prescribed. It is strongly advised that you do not resume smoking as this can result in delayed/poor wound healing. In order to treat your pain, you have been placed on the following pain medication regimen: Oxycontin (long acting form) 10mg, one tablet twice a day (morning and night). You are also being prescribed Percocet 5/325mg. This medication can be taken as follows: 2 tablets every 4 hours as needed for moderate-severe breakthrough pain. Please keep in mind, two tablets holds 650mg of Tylenol. Therefore you CANNOT take any extra Tylenol if you are taking this medication consistently every 4 hours. * You will have a scheduled follow up with pain management clinic this week to ensure your pain is controlled and your regimen is being managed. Please keep this appointment as scheduled. * DO NOT attempt to drive or operate any machinery while taking these medications as they can impair your judgement and reaction time. You will be scheduled a follow up with General Surgery, Dr. Good, for 2 weeks. Please keep this appointment as scheduled. Home health services are going to be arranged to continue working with you both physical and occupational therapy and visiting nurses to make sure your wound continues to heal as expected. Please follow all wound care instructions as given by surgery. If you need to change your dressing, we would recommend that you do so using gloves to avoid introducing bacteria into your incision site. Failure to do so could result in another infection which again could spread to your bone or knee joint, cause severe infection, and even possibly result in if not treated promptly. A prescription has been written for a wheelchair. Please contact your family doctor to schedule a follow up appointment with him within 1 week of discharge or sooner if needed. In the event of any questions/concerns, please call the nonemergency number listed on your discharge paperwork. In the event of a medical emergency, call 911. Pending Studies at Discharge: No Stand-Alone Forms: [facility], Opioid Pain Management, Smoking [place] sation Medications and DC Order Prescriptions: New famotidine 20 mg Tablet 20 mg PO BID Qty: 60 RF: 0 metoclopramide HCl 5 mg Tablet 5 mg PO AC Qty: 90 RF: 0 oxycodone [OxyContin] 10 mg Tablet,Oral Only,Ext.Rel.12 Hr 10 mg PO BID Qty: 6 RF: 0 oxycodone-acetaminophen [Percocet] 5-325 mg Tablet 2 tab PO Q4H PRN (Reason: moderate to severe breakthrough pain) Qty: 30 RF: 0 levofloxacin 750 mg tablet 750 mg PO DAILY 4 Days Qty: 4 RF: 0 linezolid 600 mg tablet 600 mg PO BID Qty: 9 RF: 0 Continued (DME) lancets [OneTouch UltraSoft Lancets] Misc See Rx Instructions .ROUTE .MEDSUPPLY Qty: 100 RF: 0 albuterol sulfate [Proventil HFA] 90 mcg/actuation HFA aerosol inhaler 1 puff inhalation QID PRN (Reason: Shortness Of Breath) RF: 0 metoprolol succinate [Toprol XL] 50 mg tablet extended release 24 hr 50 mg PO QAM RF: 0 Basaglar KwikPen U-100 Insulin 100 unit/mL (3 mL) insulin pen 15 unit SUBCUT HS Qty: 1 RF: 0 insulin lispro [Humalog KwikPen Insulin] 100 unit/mL insulin pen 3 unit SUBCUT TIDM Qty: 1 RF: 0 ropinirole 2 mg Tablet 4 mg PO HS RF: 0 nortriptyline [Pamelor] 50 mg Capsule 100 mg PO HS RF: 0 cyclobenzaprine 10 mg tablet 10 mg PO BID RF: 0 lisinopril 10 mg Tablet 10 mg PO QAM Qty: 30 RF: 0 aspirin [Aspirin Low Dose] 81 mg Tablet,Delayed Release (Dr/Ec) 81 mg PO BID Qty: 60 RF: 0 lorazepam [Ativan] 1 mg tablet 1 mg PO TID PRN (Reason: Anxiety) RF: 0 metformin 500 mg tablet extended release 24 hr 1,000 mg PO DAILY RF: 0 Changed zolpidem 12.5 mg tablet,ext release multiphase 12.5 mg PO HS PRN (Reason: insomnia) Qty: 0 RF: 0 Discontinued metronidazole 500 mg Tablet 500 mg PO TID 28 Days Qty: 84 RF: 0 daptomycin [Cubicin] 500 mg Recon Soln 1 dose Not Applicable UD Qty: 1 RF: 0 oxycodone-acetaminophen [Percocet] 5-325 mg tablet 1 tab PO Q8 PRN (Reason: Severe Pain (Scale Score 7-10)) RF: 0 Discharge Orders: Discharge Order (Routine); Ordered 12/26/21 Ordered By: Yue Nava/Other Patient Handouts: Nutrition for Wound Healing, Managing Type 2 Diabetes Admission Data Admit Date/Time: 12/06/21 17:09 Attending Provider: Alexander Leonard Admit Provider: Alexander Leonard Primary Care Provider: Vince Vernon Other Providers: [facility],Home Healthcare ; Harvinder Rushing ; Sylvain Melendrez ; Esthela Curtis ; Harish Arciniega I. ; Cristhian Oconnor II ; Minda Vargas ; Dami Willard ; David Banerjee ; Davon Good ; Deena Sandoval Other Interventions: Discharge Summary Assessment (RN) Last Done: 12/26/21 12:30 Supervising Physician Co-Signing Physician Notes I supervised Yue Maurice PA-C on the care of this patient. I interviewed and examined the patient independently of her. The plan is as written in her note except for any following changes/exceptions: None Doing well today. In good spirits and wants to go home. Stump cellulitis is i mproving. Ready for discharge with oral course of abx and pain management. Coding Level of Care Code D/C DAY MANAGEMENT >30 MINS Diagnoses S/P BKA (below knee amputation) Z89.519 Abscess of right foot L02.611 Osteomyelitis M86.9 Laterality: right Osteomyelitis location: foot Osteomyelitis type: unspecified type Opioid dependence F11.20 Diabetic foot infection E11.628; L08.9 Nausea & vomiting R11.2 Vomiting type: unspecified Anemia D64.9 HTN (hypertension) I10 Diabetes mellitus type 2, uncontrolled E11.65 Anxiety F41.9 Home Health Attestation I certify that this patient is under my care and that I, or a physician care assistant working with me, had a face to-face encounter that meets the home health [id number] encounter requirements with this patient. The encounter with the patient was in whole, or in part, for the following medical condition, which is the primary reason for home health care (list medical condition): I certify that, based on my findings, the following services are medically necessary home health services: My clinical findings support the need for the above services because: Further, I certify that my clinical findings support that this patient is homebound (i.e. absences from home require considerable and taxing effort and are for medical reasons or anabaptist services or infrequently or of short duration when for other reasons) because: Certification for Home Health Services: Based on the above findings, I certify that this patient is confined to the home and needs intermittent residential care, physical therapy and/or speech therapy or continues to need occupational therapy. The patient is under my care, and I have initiated the establishment of the plan of care. This patient will be followed by a physician who will periodically review the plan of care.
== END 2021-12-26 14:18 | disposition home health service (06) | DRG 617 ==
LOC: ED 11:43 → 3E 17:09 → SUATTDRO 17:09 → 3E 19:43
DX: T81.31XA Disruption of external operation (surgical) wound, not elsewhere classified, initial encounter; E11.65 Type 2 diabetes mellitus with hyperglycemia; I10 Essential (primary) hypertension; Z88.1 Allergy status to other antibiotic agents; M65.171 Other infective (teno)synovitis, right ankle and foot; L03.115 Cellulitis of right lower limb; Z88.2 Allergy status to sulfonamides; Y92.019 Unspecified place in single-family (private) house as the place of occurrence of the external cause; Z87.891 Personal history of nicotine dependence; D64.9 Anemia, unspecified; Z86.14 Personal history of Methicillin resistant Staphylococcus aureus infection; E11.628 Type 2 diabetes mellitus with other skin complications; M66.271 Spontaneous rupture of extensor tendons, right ankle and foot; B95.8 Unspecified staphylococcus as the cause of diseases classified elsewhere; E11.69 Type 2 diabetes mellitus with other specified complication; M94.0 Chondrocostal junction syndrome [Tietze]; M86.471 Chronic osteomyelitis with draining sinus, right ankle and foot; Z88.8 Allergy status to other drugs, medicaments and biological substances; E11.622 Type 2 diabetes mellitus with other skin ulcer; E87.1 Hypo-osmolality and hyponatremia; E11.51 Type 2 diabetes mellitus with diabetic peripheral angiopathy without gangrene; Z88.5 Allergy status to narcotic agent; F11.20 Opioid dependence, uncomplicated; L02.611 Cutaneous abscess of right foot; Z83.3 Family history of diabetes mellitus

== ENCOUNTER 2022-01-11 13:56 | Inpatient (IN) ==
--- NOTE | 2022-01-11 14:13 | Emergency Department Note ---
Impression & Plan Sepsis, Gastroenteritis, Acute dehydration, Acidosis, lactic ED Provider Note NAME: EILEEN ESCOBAR AGE: 56 SEX: F : 1965 ARRIVES VIA: Walk-In INFORMANT: Patient, ED PROVIDER(S): Anish Lowery MD Chief Complaint: Shortness of breath HPI: Patient presents due to concern for shortness of breath. The patient did have a rise knee below the knee amputation patient was recently started on antibiotics. Patient had undergone December 22. Patient was started on doxycycline at her most recent general surgery follow-up with Dr. Good on January 04. Patient states that she feels short of breath and this is been ongoing since yesterday. Patient denies any fevers or chills but has had vomiting. The patient is not taking insulin 2 days and not checked her sugars. The patient does feel weak and fatigued. Patient denies any abdominal pain but has had nausea. No recent falls or trauma. Patient denies any smoking history alcohol or drug use. The patient has been taking her doxycycline that she was presc ribed by the general surgery service. Patient does complain of general body aches throughout. Patient states that she has not been taking any narcotics but only most recently had taken it may be around 6 AM this morning. ROS: See HPI for pertinent positives and negatives. A total of 10 systems were reviewed and otherwise negative. Past medical history: See below Surgical history: See below Social history: See below Physical Exam: GENERAL: Moderately ill in appearance, nasal cannula in place, tired in appearance EYE EXAM: Normal conjunctiva. PERRL, no anisocoria and EOM's grossly intact w/o pain. OROPHARYNX: Dry mucus membranes. Grossly normal dentition. NECK: Supple, no nuchal rigidity, no adenopathy, non-tender. No signs of meningismus. LUNGS: Clear to auscultation. Normal chest wall mechanics. HEART: NSR, no MRG. ABDOMEN: Abdomen soft, non-tender, normo-active bowel sounds, no masses, no rebound or guarding. BACK: No CVA TTP. SKIN: No rashes and no bruising. UPPER EXTREMITIES: Upper extremities are grossly normal. LOWER EXTREMITIES: Grossly normal, no edema. NEURO EXAM: A&O x3, cranial nerves II-XII grossly intact, normal speech, moves all 4 extremities on command w/o issue. Differential diagnoses: Reactive airway disease, pneumonia, pneumothorax, COPD, CHF, infections, cardiac ischemia, pulmonary embolism, musculoskeletal, gastrointestinal, as well as other pathologies. Course: Patient was seen and evaluated the bedside. Full history physical exam was performed. EKG interpreted by me Sinus tachycardia, rate of 119, normal intervals, normal axis, no obvious ST changes or T WI Imaging Studies: See Below Cardiac monitoring: An order was placed for continuous cardiac monitoring. The monitor shows a rate of 122 with tachycardic rate rhythm. MDM: Patient was seen due to concern for shortness of breath. Lower was obtained and patient was started on IV fluids and antibiotics. CT angio of the chest ordered given patient's tachycardia shortness of breath and recent surgery. Patient's blood work does show a white count of 25. Additional antibiotics were ordered to include MRSA coverage. Patient's H&H is normal with thrombocytosis of 644. Kidney function unremarkable overall but the patient does have an increased anion gap and mild hyponatremia. Do believe the patient is clinically dehydrated. Glucose of 288. Calcium slightly elevated at 11.1. Lactate of 2.9. The patient was ordered 2 L of IV fluids. Procalcitonin is not elevated. CT angiography of the chest as well as abdomen pelvis. Show likely enteritis but without evidence of obstruction. Angiography does not show any PE or obvious pneumonia. The patient does have a stable 2 cm subpleural groundglass opacity which may benefit from repeat imaging in about 6 months time. I did reevaluate the patient who had mild improvement in symptoms. The patient did have a voluminous bowel movement and thus a stool culture was ordered. I did speak the on-call hospitalist and the patient was admitted by Dr. Whaley. Past Med/Surg History Medical History 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 No issues per anesthesia postop progress note. Anemia Cellulitis Chronic back pain Depression Diabetic peripheral neuropathy DM2 (diabetes mellitus, type 2) IDDM, A1c 07/2021-11% Gastritis GIB (gastrointestinal bleeding) History of amputation of great toe Hyperlipidemia Insulin dependent diabetes mellitus Iron deficiency anemia Nonobstructive atherosclerosis of coronary artery Numbness of lower extremity Peripheral neuropathy Right second toe ulcer Seizures Surgical History History of cardiac cath done at [facility]; 09/22/19; LM - mild luminal irregularities. LAD - mid 20-30%, distal with myocardial bridge & 30% stenosis. L Cx - mild luminal irregularities. RCA - proximal <30% stenosis; mid/distal vessel mild plaques. PDA - mild luminal irregularities. History of esophagogastroduodenoscopy (EGD) History of right below knee amputation (12/22/21) Right Below Knee Amputation(Right) - Davon Good MD, FACS Family History Mother , age 63 Myocardial infarction Father , age 68 or 69 Myocardial infarction Brother S/P CABG (coronary artery bypass graft) Sister Myocardial infarction x 3; she is 57yo Social History Smoking Status: Former smoker Tobacco Type: Cigarettes packs per day: 0.5; Years Smoked: 20; Cigarettes Per Day: 20; Second Hand Exposure: No; Hx Alcohol Use: No Hx Substance Use: No Preferred Language: Malay Communication Ability: Effective Visual Impairment: No Limitations Hearing Ability: Normal [employer]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 other: raising a grandchild as well; lives in [place] Feels Safe at Home: Yes during the past year weight has: remained stable Assistive Devices: Walker Allergies Allergies Allergy/AdvReac Type Severity Reaction Status Date / Time morphine Allergy Severe blisters Verified 01/11/22 15:40 in mouth Sulfa (Sulfonamide Allergy Severe rash/swelli Verified 01/11/22 15:40 Antibiotics) ng iron [From Venofer] Allergy Intermediate Hypertensio Verified 01/11/22 15:40 n vancomycin Allergy Intermediate YULIYA Verified 01/11/22 15:40 SYNDROME---CAN TAKE IF VERY SLOW DRIP. amoxicillin [From Augmentin] Allergy Mild itching/power Verified 01/11/22 15:40 h clavulanic acid Allergy Mild itching/power Verified 01/11/22 15:40 [From Augmentin] h Home Meds Home Medications Medication Instructions Recorded Confirmed nortriptyline 50 mg capsule 100 mg PO HS 10/19/20 01/11/22 (Pamelor) ropinirole 2 mg tablet 4 mg PO HS 10/19/20 01/11/22 lancets (OneTouch UltraSoft #100 ea 11/12/20 01/11/22 Lancets) albuterol sulfate 90 mcg/actuation 1 puff INHALATION QID PRN 03/05/21 01/11/22 aerosol inhaler (Proventil HFA) metoprolol succinate 50 mg 50 mg PO QAM 03/05/21 01/11/22 tablet,extended release 24 hr (Toprol XL) lorazepam 1 mg tablet (Ativan) 1 mg PO TID PRN 11/04/21 01/11/22 cyclobenzaprine 10 mg tablet 10 mg PO BID tab 11/24/21 01/11/22 metformin 500 mg tablet,extended 1,000 mg PO DAILY 12/06/21 01/11/22 release 24 hr pregabalin 50 mg capsule (Lyrica) 50 mg PO TID 01/04/22 01/11/22 Previous Rx's Medication Instructions Recorded insulin glargine 100 unit/mL (3 15 unit SUBCUT HS #1 ml 08/18/21 mL) subcutaneous pen (Basaglar KwikPen U-100 Insulin) insulin lispro 100 unit/mL 3 unit SUBCUT TIDM #1 ml 08/18/21 subcutaneous pen (Humalog KwikPen (U-100) Insulin) aspirin 81 mg tablet,delayed 81 mg PO BID #60 tab 10/04/21 release (Aspirin Low Dose) lisinopril 10 mg tablet 10 mg PO QAM #30 tab 10/04/21 famotidine 20 mg tablet 20 mg PO BID #60 tab 12/26/21 linezolid 600 mg tablet 600 mg PO BID #9 tab 12/26/21 metoclopramide HCl 5 mg tablet 5 mg PO AC #90 tab 12/26/21 oxycodone 10 mg tablet,crush 10 mg PO BID #6 tab 12/26/21 resistant,extended release 12 hr (OxyContin) oxycodone-acetaminophen 5 mg-325 2 tab PO Q4H PRN #30 tab 12/26/21 mg tablet (Percocet) zolpidem 12.5 mg tablet,extended 12.5 mg PO HS PRN #0 tab 12/26/21 release,multiphase doxycycline hyclate 100 mg tablet 100 mg PO BID #20 tab 01/04/22 Results & Data (ED) Vital Signs Vital Signs - 24 hr 01/11/22 13:59 01/11/22 14:08 01/11/22 14:30 Temperature 35.8 C L Temperature Source Temporal Artery Scan Pulse Rate 84 122 H 122 H Pulse Rate from SpO2 Sensor 129 H Respiratory Rate 18 16 23 Respiratory Effort / Characteristics Non-Labored Spontaneous Respiratory Depth Normal Blood Pressure 152/76 H 85/63 L 108/73 Blood Pressure Mean 101 70 84 Pulse Oximetry 95 98 Oxygen Delivery Method Room Air Nasal Cannula Nasal Cannula Oxygen Flow Rate 4 4 Sepsis Recent Fever Within 48 Hours No Sepsis New/Unexplained Change in Mental Status No Sepsis Action Taken by Nursing No Action Required 01/11/22 15:30 01/11/22 16:00 01/11/22 17:00 Temperature Temperature Source Pulse Rate 122 H 121 H 129 H Pulse Rate from SpO2 Sensor 123 H 121 H Respiratory Rate 22 21 24 Respiratory Effort / Characteristics Respiratory Depth Blood Pressure 97/67 L 140/82 122/79 Blood Pressure Mean 77 101 93 Pulse Oximetry 98 100 98 Oxygen Delivery Method Nasal Cannula Nasal Cannula Nasal Cannula Oxygen Flow Rate 4 4 4 Sepsis Recent Fever Within 48 Hours Sepsis New/Unexplained Change in Mental Status Sepsis Action Taken by Retirement Medications Current Medication List: was personally reviewed by me Laboratory Data Attestation: I reviewed the patient's lab results. Result diagrams: 01/11/22 14:17 01/11/22 15:59 Lab Results 01/11/22 01/11/22 01/11/22 Range/Units 14:17 14:17 14:17 WBC 25.61 H (4.8-10.8) K/uL RBC 5.86 H (4.2-5.4) M/uL Hgb 14.5 (12.0-16.0) g/dL Hct 44.6 (37-47) % MCV 76.1 L (80-100) fL MCH 24.7 L (25-34) pg MCHC 32.5 (32-36) g/dL RDW Std Deviation 45.8 (36.4-46.3) fL RDW Coeff of Maria Del Carmen 17.0 H (11.5-14.5) % Plt Count 644 H (130-400) K/uL MPV 9.7 (7.4-10.4) fL Immature Gran % (Auto) 0.5 % Neut % (Auto) 71.9 % Lymph % (Auto) 18.5 % [place] % (Auto) 7.6 % Eos % (Auto) 1.2 % Baso % (Auto) 0.3 % Neut # (Auto) 18.45 H (1.4-6.5) K/uL Lymph # (Auto) 4.73 H (1.2-3.4) K/uL [place] # (Auto) 1.94 H (0.11-0.59) K/uL Eos # (Auto) 0.30 (0-0.5) K/uL Baso # (Auto) 0.07 (0-0.2) K/uL Immature Gran # (Auto) 0.12 H (0.00-0.02) K/uL PT 10.4 (9.0-12.0) Seconds INR 1.0 (0.9-1.1) APTT 21.9 (21.0-31.0) Seconds PTT Ratio 0.8 VBG pH (7.36-7.41) VBG pCO2 (38-50) mmHg VBG pO2 mmHg VBG HCO3 mmol/L VBG O2 Saturation % VBG Base Excess mEq/L Barometric Pressure mm/Hg Sodium 131 L (136-145) mmol/L Potassium TNP Chloride 93 L (98-107) mmol/L Carbon Dioxide 22 (21-32) mmol/L Anion Gap 16 H (3-11) BUN 26 H (6-23) mg/dl Creatinine 1.09 (0.6-1.2) mg/dl Est Cr Clr Drug Dosing 50.8 ml/min Est GFR ( Amer) 65.3 ml/min Est GFR (Non-Af Amer) 56.3 ml/min BUN/Creatinine Ratio 23.9 H (10-20) Glucose 288 H (70-99(Fasting)) mg/dl POC Glucose (70-99) mg/dl Lactate (0.4-2.0) mmol/L Calcium 11.1 H (8.5-10.1) mg/dl Magnesium 2.1 (1.7-2.4) mg/dl Total Bilirubin 1.0 (0.2-1.0) mg/dl AST TNP ALT 18 (7-52) U/L Alkaline Phosphatase 127 H (34-104) U/L Troponin I High Sens 12.8 (0-14) pg/ml Total Protein 9.1 H (6.0-8.3) gm/dl Albumin 5.1 H (3.4-5.0) gm/dl Globulin 4.0 (2.5-4.0) gm/dl Albumin/Globulin Ratio 1.3 (0.9-2) Procalcitonin SARS-CoV-2, RNA, NAAT (NEGATIVE) 01/11/22 01/11/22 01/11/22 Range/Units 14:17 14:21 15:00 WBC (4.8-10.8) K/uL RBC (4.2-5.4) M/uL Hgb (12.0-16.0) g/dL Hct (37-47) % MCV (80-100) fL MCH (25-34) pg MCHC (32-36) g/dL RDW Std Deviation (36.4-46.3) fL RDW Coeff of Maria Del Carmen (11.5-14.5) % Plt Count (130-400) K/uL MPV (7.4-10.4) fL Immature Gran % (Auto) % Neut % (Auto) % Lymph % (Auto) % [place] % (Auto) % Eos % (Auto) % Baso % (Auto) % Neut # (Auto) (1.4-6.5) K/uL Lymph # (Auto) (1.2-3.4) K/uL [place] # (Auto) (0.11-0.59) K/uL Eos # (Auto) (0-0.5) K/uL Baso # (Auto) (0-0.2) K/uL Immature Gran # (Auto) (0.00-0.02) K/uL PT (9.0-12.0) Seconds INR (0.9-1.1) APTT (21.0-31.0) Seconds PTT Ratio VBG pH (7.36-7.41) VBG pCO2 (38-50) mmHg VBG pO2 mmHg VBG HCO3 mmol/L VBG O2 Saturation % VBG Base Excess mEq/L Barometric Pressure mm/Hg Sodium (136-145) mmol/L Potassium Chloride (98-107) mmol/L Carbon Dioxide (21-32) mmol/L Anion Gap (3-11) BUN (6-23) mg/dl Creatinine (0.6-1.2) mg/dl Est Cr Clr Drug Dosing ml/min Est GFR ( Amer) ml/min Est GFR (Non-Af Amer) ml/min BUN/Creatinine Ratio (10-20) Glucose (70-99(Fasting)) mg/dl POC Glucose 307 H* (70-99) mg/dl Lactate (0.4-2.0) mmol/L Calcium (8.5-10.1) mg/dl Magnesium (1.7-2.4) mg/dl Total Bilirubin (0.2-1.0) mg/dl AST ALT (7-52) U/L Alkaline Phosphatase (34-104) U/L Troponin I High Sens (0-14) pg/ml Total Protein (6.0-8.3) gm/dl Albumin (3.4-5.0) gm/dl Globulin (2.5-4.0) gm/dl Albumin/Globulin Ratio (0.9-2) Procalcitonin Cancelled SARS-CoV-2, RNA, NAAT NEGATIVE (NEGATIVE) 01/11/22 01/11/22 01/11/22 Range/Units 15:59 15:59 15:59 WBC (4.8-10.8) K/uL RBC (4.2-5.4) M/uL Hgb (12.0-16.0) g/dL Hct (37-47) % MCV (80-100) fL MCH (25-34) pg MCHC (32-36) g/dL RDW Std Deviation (36.4-46.3) fL RDW Coeff of Maria Del Carmen (11.5-14.5) % Plt Count (130-400) K/uL MPV (7.4-10.4) fL Immature Gran % (Auto) % Neut % (Auto) % Lymph % (Auto) % [place] % (Auto) % Eos % (Auto) % Baso % (Auto) % Neut # (Auto) (1.4-6.5) K/uL Lymph # (Auto) (1.2-3.4) K/uL [place] # (Auto) (0.11-0.59) K/uL Eos # (Auto) (0-0.5) K/uL Baso # (Auto) (0-0.2) K/uL Immature Gran # (Auto) (0.00-0.02) K/uL PT (9.0-12.0) Seconds INR (0.9-1.1) APTT (21.0-31.0) Seconds PTT Ratio VBG pH 7.43 H (7.36-7.41) VBG pCO2 33 L (38-50) mmHg VBG pO2 37 mmHg VBG HCO3 22 mmol/L VBG O2 Saturation 70.7 % VBG Base Excess -2.0 mEq/L Barometric Pressure 727.9 mm/Hg Sodium (136-145) mmol/L Potassium Chloride (98-107) mmol/L Carbon Dioxide (21-32) mmol/L Anion Gap (3-11) BUN (6-23) mg/dl Creatinine (0.6-1.2) mg/dl Est Cr Clr Drug Dosing ml/min Est GFR ( Amer) ml/min Est GFR (Non-Af Amer) ml/min BUN/Creatinine Ratio (10-20) Glucose (70-99(Fasting)) mg/dl POC Glucose (70-99) mg/dl Lactate 2.9 H* (0.4-2.0) mmol/L Calcium (8.5-10.1) mg/dl Magnesium (1.7-2.4) mg/dl Total Bilirubin (0.2-1.0) mg/dl AST ALT (7-52) U/L Alkaline Phosphatase (34-104) U/L Troponin I High Sens (0-14) pg/ml Total Protein (6.0-8.3) gm/dl Albumin (3.4-5.0) gm/dl Globulin (2.5-4.0) gm/dl Albumin/Globulin Ratio (0.9-2) Procalcitonin 0.11 SARS-CoV-2, RNA, NAAT (NEGATIVE) 01/11/22 Range/Units 15:59 WBC (4.8-10.8) K/uL RBC (4.2-5.4) M/uL Hgb (12.0-16.0) g/dL Hct (37-47) % MCV (80-100) fL MCH (25-34) pg MCHC (32-36) g/dL RDW Std Deviation (36.4-46.3) fL RDW Coeff of Maria Del Carmen (11.5-14.5) % Plt Count (130-400) K/uL MPV (7.4-10.4) fL Immature Gran % (Auto) % Neut % (Auto) % Lymph % (Auto) % [place] % (Auto) % Eos % (Auto) % Baso % (Auto) % Neut # (Auto) (1.4-6.5) K/uL Lymph # (Auto) (1.2-3.4) K/uL [place] # (Auto) (0.11-0.59) K/uL Eos # (Auto) (0-0.5) K/uL Baso # (Auto) (0-0.2) K/uL Immature Gran # (Auto) (0.00-0.02) K/uL PT (9.0-12.0) Seconds INR (0.9-1.1) APTT (21.0-31.0) Seconds PTT Ratio VBG pH (7.36-7.41) VBG pCO2 (38-50) mmHg VBG pO2 mmHg VBG HCO3 mmol/L VBG O2 Saturation % VBG Base Excess mEq/L Barometric Pressure mm/Hg Sodium (136-145) mmol/L Potassium 4.5 Chloride (98-107) mmol/L Carbon Dioxide (21-32) mmol/L Anion Gap (3-11) BUN (6-23) mg/dl Creatinine (0.6-1.2) mg/dl Est Cr Clr Drug Dosing ml/min Est GFR ( Amer) ml/min Est GFR (Non-Af Amer) ml/min BUN/Creatinine Ratio (10-20) Glucose (70-99(Fasting)) mg/dl POC Glucose (70-99) mg/dl Lactate (0.4-2.0) mmol/L Calcium (8.5-10.1) mg/dl Magnesium (1.7-2.4) mg/dl Total Bilirubin (0.2-1.0) mg/dl AST 14 ALT (7-52) U/L Alkaline Phosphatase (34-104) U/L Troponin I High Sens (0-14) pg/ml Total Protein (6.0-8.3) gm/dl Albumin (3.4-5.0) gm/dl Globulin (2.5-4.0) gm/dl Albumin/Globulin Ratio (0.9-2) Procalcitonin SARS-CoV-2, RNA, NAAT (NEGATIVE) Administered Medications Discontinued Medications Fentanyl Citrate (Fentanyl Citrate 100 Mcg/2 Ml Vial) 25 mcg IV NOW ONE Stop: 01/11/22 15:39 Last Admin: 01/11/22 16:07 Dose: 25 mcg Documented by: [id number] Sodium Chloride (Nss 1000ml) 1,000 mls @ 999 mls/hr IV .Q1H1M RICKY Stop: 01/11/22 15:17 Last Infusion: 01/11/22 17:09 Dose: 0 mls/hr Documented by: [id number] Admin: 01/11/22 14:30 Dose: 999 mls/hr Documented by: [id number] Sodium Chloride (Nss 1000ml) 1,000 mls @ 999 mls/hr IV .Q1H1M ONE Stop: 01/11/22 15:18 Last Infusion: 01/11/22 15:30 Dose: 0 mls/hr Documented by: [id number] Admin: 01/11/22 14:29 Dose: 999 mls/hr Documented by: [id number] Vancomycin HCl 1,750 mg/ (Sodium Chloride) 535 mls @ 140 mls/hr IV NOW ONE Stop: 01/11/22 18:55 Last Admin: 01/11/22 15:34 Dose: 100 mls/hr Documented by: [id number] Ioversol (Optiray 320 125ml) 120 ml IV ONCE ONE Stop: 01/11/22 16:31 Last Admin: 01/11/22 16:30 Dose: 120 ml Documented by: [id number] Ondansetron HCl (Ondansetron Inj 2 Mg/Ml 2 Ml Vial) 4 mg IV NOW STA Stop: 01/11/22 14:20 Last Admin: 01/11/22 14:29 Dose: 4 mg Documented by: [id number] Imaging Data Radiologist's Impression: Chest CTA 01/11/22 14:16 CT ANGIOGRAPHY OF THE CHEST, PULMONARY EMBOLUS PROTOCOL CLINICAL HISTORY: Tachycardia. Recent surgery. Evaluate for pulmonary embolus. COMPARISON STUDY: Chest radiograph performed earlier today and December 24, 2021. Chest CT February 08, 2021. TECHNIQUE: Following IV administration of 120 mL of Optiray, helical axial images of the chest were obtained utilizing the pulmonary embolus protocol. Maximal intensity projections and sagittal and coronal reformats were viewed on an independent 3D workstation. IV contrast was administered without complication. Automated exposure control was utilized for the study. A dose lowering technique was utilized adhering to the principles of ALARA. FINDINGS: No pulmonary emboli are identified. There is no thoracic aortic dissection. Size of the heart is normal. There may be left ventricular hypertrophy. No pericardial effusion is present. No enlarged thoracic nodes are present. There is moderate coronary artery calcification. Central airways are patent. There is no consolidation to suggest pneumonia. Moderate upper lobe predominant emphysema is present. A 2 cm subpleural groundglass opacity which contain cystic spaces within the right lower lobe on image 130 of 271 is unchanged since prior CT. This is probably benign. No acute fracture or suspicious lesion within the visualized bony thorax. The CT of the abdomen and pelvis will be reported separately. Small hiatal hernia is present. IMPRESSION: 1. No pulmonary emboli identified. 2. No acute process within the chest. 3. Emphysema. 4. Stable 2 cm subpleural groundglass opacity with cystic spaces within the right lower lobe. This is unchanged from prior exam. This is probably benign however a follow-up chest CT in 6 months is recommended to ensure continued stability. ACT 112: Negative or not required by law. Electronically signed by: Wilver Powell M.D. 01/11/2022 4:43 PM Chest X-Ray 01/11/22 14:17 XR chest 1V portable HISTORY: 56 years-old Female SEPSIS acute sepsis with nausea and vomiting COMPARISON: Chest radiograph 12/23/2021 TECHNIQUE: Portable AP view of the chest FINDINGS: Cardiomediastinal and hilar silhouettes are within normal limits. There is no pneumothorax, pleural effusion, airspace consolidation or overt pulmonary edema. Bones of the chest appear grossly intact. IMPRESSION: No acute process. ACT 112: Negative or not required by law. The above report was generated using voice recognition software. It may contain grammatical, syntax or spelling errors. Electronically signed by: Puneet Howard M.D. 01/11/2022 3:03 PM Abdomen/Pelvis CT 01/11/22 15:[address] WITH IV CONTRAST CT DOSE: 613.27 mGy.cm HISTORY: tachycardia, WBC 25, back pain TECHNIQUE: Multiaxial CT images of the abdomen and pelvis were performed following the use of intravenous contrast. A dose lowering technique was utilized adhering to the principles of ALARA. COMPARISON STUDY: Abdomen and pelvis CTA 07/14/2021. FINDINGS: Please refer to the same day chest CTA for further evaluation of the lung bases. No pneumoperitoneum. No pneumatosis. Posterior decompression fusion at L5-S1 with pedicle screws and rods. The gallbladder surgically absent. The liver, pancreas, spleen, and adrenal glands are unremarkable. The kidneys enhance normally. No hydronephrosis. No retroperitoneal lymphadenopathy. Mild calcified plaque within the normal caliber abdominal aorta. The main portal vein is patent. Mild circumferential thickening involving the distal ileal loops w ithin the deep pelvis with adjacent fat stranding and mesenteric edema. This is consistent with a nonspecific enteritis. Mild bladder wall thickening which is likely due to underdistention. The uterus is surgically absent. Fluid-filled large bowel. No colonic wall thickening identified. The appendix is likely visualized on image 380 appears normal in caliber. IMPRESSION: 1. Mild circumferential thickening involving the distal ileal loops within the deep pelvis with adjacent fat stranding and mesenteric edema. This is consistent with a nonspecific enteritis. 2. Fluid-filled large bowel. This is likely reactive to the enteritis. 3. No evidence for bowel obstruction. 4. Please refer to the same day chest CTA for further evaluation of the lung bases. ACT 112: Negative or not required by law. Electronically signed by: Ernst Murray M.D. 01/11/2022 4:47 PM Discharge Plan Visit Data Chief Complaint: Shortness of Breath/Dyspnea Stated Complaint: SHORTNESS OF BREATH ED Provider: Anish Lowery Discharge Problem: Sepsis, Gastroenteritis, Acute dehydration, Acidosis, lactic Patient Disposition: Admitted As Inpatient Prescriptions Prescriptions: No Action doxycycline hyclate 100 mg tablet 100 mg PO BID Qty: 20 RF: 0 pregabalin [Lyrica] 50 mg capsule 50 mg PO TID RF: 0 (DME) lancets [OneTouch UltraSoft Lancets] Misc See Rx Instructions .ROUTE .MEDSUPPLY Qty: 100 RF: 0 albuterol sulfate [Proventil HFA] 90 mcg/actuation HFA aerosol inhaler 1 puff inhalation QID PRN (Reason: Shortness Of Breath) RF: 0 metoprolol succinate [Toprol XL] 50 mg tablet extended release 24 hr 50 mg PO QAM RF: 0 Basaglar KwikPen U-100 Insulin 100 unit/mL (3 mL) insulin pen 15 unit SUBCUT HS Qty: 1 RF: 0 insulin lispro [Humalog KwikPen Insulin] 100 unit/mL insulin pen 3 unit SUBCUT TIDM Qty: 1 RF: 0 ropinirole 2 mg Tablet 4 mg PO HS RF: 0 nortriptyline [Pamelor] 50 mg Capsule 100 mg PO HS RF: 0 cyclobenzaprine 10 mg tablet 10 mg PO BID RF: 0 lisinopril 10 mg Tablet 10 mg PO QAM Qty: 30 RF: 0 aspirin [Aspirin Low Dose] 81 mg Tablet,Delayed Release (Dr/Ec) 81 mg PO BID Qty: 60 RF: 0 lorazepam [Ativan] 1 mg tablet 1 mg PO TID PRN (Reason: Anxiety) RF: 0 metformin 500 mg tablet extended release 24 hr 1,000 mg PO DAILY RF: 0 famotidine 20 mg Tablet 20 mg PO BID Qty: 60 RF: 0 metoclopramide HCl 5 mg Tablet 5 mg PO AC Qty: 90 RF: 0 oxycodone [OxyContin] 10 mg Tablet,Oral Only,Ext.Rel.12 Hr 10 mg PO BID Qty: 6 RF: 0 oxycodone-acetaminophen [Percocet] 5-325 mg Tablet 2 tab PO Q4H PRN (Reason: moderate to severe breakthrough pain) Qty: 30 RF: 0 zolpidem 12.5 mg tablet,ext release multiphase 12.5 mg PO HS PRN (Reason: insomnia) Qty: 0 RF: 0 linezolid 600 mg tablet 600 mg PO BID Qty: 9 RF: 0 Referrals Referrals: Vince Vernon DO [Primary Care Provider] -
[2022-01-11] MEDS ORDERED: SODIUM CHLORIDE 0.9% 1000ML 1,000 ML IV ONE (14:18)
[2022-01-11] MEDS ORDERED: ONDANSETRON INJ 2 MG/ML 2 ML VIAL IV STA (14:19)
[2022-01-11] MEDS ORDERED: SODIUM CHLORIDE 0.9% 1000ML 1,000 ML IV SCH (14:30)
[2022-01-11 14:41] LABS: Basophils # (auto) 0.07 K/uL (0-0.2); Basophils % (auto) 0.3 %; Eosinophils % (auto) 1.2 %; Hematocrit (blood only) 44.6 % (37-47); Hemoglobin 14.5 g/dL (12.0-16.0); Immature Granulocytes # (auto) 0.12 K/uL (0.00-0.02); Immature Granulocytes % (auto) 0.5 %; Lymphocytes # (auto) 4.73 K/uL (1.2-3.4); Lymphocytes % (auto) 18.5 %; Mean Corpuscular Hemoglobin 24.7 pg (25-34); Mean Corpuscular Hgb Conc 32.5 g/dL (32-36); Mean Corpuscular Volume 76.1 fL (80-100); Mean Platelet Volume 9.7 fL (7.4-10.4); Monocytes # (auto) 1.94 K/uL (0.11-0.59); Monocytes % (auto) 7.6 %; Neutrophils # (auto) 18.45 K/uL (1.4-6.5); Neutrophils % (auto) 71.9 %; Platelet Count 644 K/uL (130-400); RDW Standard Deviation 45.8 fL (36.4-46.3); Red Blood Count 5.86 M/uL (4.2-5.4); White Blood Count 25.61 K/uL (4.8-10.8)
[2022-01-11 14:43] LABS: Partial Thromboplastin Ratio 0.8; Partial Thromboplastin Time 21.9 Seconds (21.0-31.0); Prothrombin Time 10.4 Seconds (9.0-12.0)
[2022-01-11 14:55] LABS: Troponin I High Sensitivity 12.8 pg/ml (0-14)
--- NOTE | 2022-01-11 15:04 | XRay Report ---
XR chest 1V portable HISTORY: 56 years-old Female SEPSIS acute sepsis with nausea and vomiting COMPARISON: Chest radiograph 12/23/2021 TECHNIQUE: Portable AP view of the chest FINDINGS: Cardiomediastinal and hilar silhouettes are within normal limits. There is no pneumothorax, pleural e ffusion, airspace consolidation or overt pulmonary edema. Bones of the chest appear grossly intact. IMPRESSION: No acute process. ACT 112: Negative or not required by law. The above report was generated using voice recognition software. It may contain grammatical, syntax o r spelling errors. Electronically signed by: Puneet Howard M.D. 01/11/2022 3:03 PM
[2022-01-11] MEDS ORDERED: VANCOMYCIN CONSULT ACTIVE PRN (15:06)
[2022-01-11] MEDS ORDERED: VANCOMYCIN HCL 1,750 MG in SODIUM CHLORIDE 0.9% 500 ML IV ONE (15:06)
[2022-01-11] MEDS ORDERED: fentaNYL citrate 100 MCG/2 ML VIAL IV ONE (15:38)
[2022-01-11 15:48] LABS: Alanine Aminotransferase 18 U/L (7-52); Albumin Globulin Ratio 1.3 (0.9-2); Albumin Level 5.1 gm/dl (3.4-5.0); Alkaline Phosphatase 127 U/L (34-104); Anion Gap 16 (3-11); BUN Creatinine Ratio 23.9 (10-20); Blood Urea Nitrogen 26 mg/dl (6-23); Calcium 11.1 mg/dl (8.5-10.1); Carbon Dioxide 22 mmol/L (21-32); Chloride 93 mmol/L (98-107); Creatinine Clr Calc Pharmacy 50.8 ml/min; Est GFR (African American) 65.3 ml/min; Est GFR (Non-African American) 56.3 ml/min; Glucose 288 mg/dl (70-99(Fasting)); Magnesium 2.1 mg/dl (1.7-2.4); Sodium 131 mmol/L (136-145); Total Protein 9.1 gm/dl (6.0-8.3)
[2022-01-11] MEDS ORDERED: OPTIRAY 320 125ml IV ONE (16:30)
[2022-01-11 16:35] LABS: Oxygen Saturation VBG 70.7 %; pH VBG 7.43 (7.36-7.41)
[2022-01-11 16:42] LABS: Potassium 4.5 mmol/L (3.5-5.1)
--- NOTE | 2022-01-11 16:46 | CT Scan Report ---
CT ANGIOGRAPHY OF THE CHEST, PULMONARY EMBOLUS PROTOCOL CLINICAL HISTORY: Tachycardia. Recent surgery. Evaluate for pulmonary embolus. COMPARISON STUDY: Chest radiograph performed earlier today and December 24, 2021. Chest CT February 08, 2021. TECHNIQUE: Following IV administration of 120 mL of Optiray, helical axial images of the chest were o btained utilizing the pulmonary embolus protocol. Maximal intensity projections and sagittal and cor onal reformats were viewed on an independent 3D workstation. IV contrast was administered without co mplication. Automated exposure control was utilized for the study. A dose lowering technique was ut ilized adhering to the principles of ALARA. FINDINGS: No pulmonary emboli are identified. There is no thoracic aortic dissection. Size of the he art is normal. There may be left ventricular hypertrophy. No pericardial effusion is present. No enla rged thoracic nodes are present. There is moderate coronary artery calcification. Central airways are patent. There is no consolidation to suggest pneumonia. Moderate upper lobe predominant emphysema is present. A 2 cm subpleural groundglass opacity which contain cystic spaces within the right lower lo be on image 130 of 271 is unchanged since prior CT. This is probably benign. No acute fracture or cindy picious lesion within the visualized bony thorax. The CT of the abdomen and pelvis will be reported s eparately. Small hiatal hernia is present. IMPRESSION: 1. No pulmonary emboli identified. 2. No acute process within the chest. 3. Emphysema. 4. Stable 2 cm subpleural groundglass opacity with cystic spaces within the right lower lobe. This is unchanged from prior exam. This is probably benign however a follow-up chest CT in 6 months is recom mended to ensure continued stability. ACT 112: Negative or not required by law. Electronically signed by: Wilver Powell M.D. 01/11/2022 4:43 PM
--- NOTE | 2022-01-11 16:48 | CT Scan Report ---
ABDOMEN AND PELVIS CT WITH IV CONTRAST CT DOSE: 613.27 mGy.cm HISTORY: tachycardia, WBC 25, back pain TECHNIQUE: Multiaxial CT images of the abdomen and pelvis were performed following the use of intrave nous contrast. A dose lowering technique was utilized adhering to the principles of ALARA. COMPARISON STUDY: Abdomen and pelvis CTA 07/14/2021. FINDINGS: Please refer to the same day chest CTA for further evaluation of the lung bases. No pneumop eritoneum. No pneumatosis. Posterior decompression fusion at L5-S1 with pedicle screws and rods. The gallbladder surgically absent. The liver, pancreas, spleen, and adrenal glands are unremarkable. The kidneys enhance normally. No hydronephrosis. No retroperitoneal lymphadenopathy. Mild calcified plaqu e within the normal caliber abdominal aorta. The main portal vein is patent. Mild circumferential thi ckening involving the distal ileal loops within the deep pelvis with adjacent fat stranding and mesen teric edema. This is consistent with a nonspecific enteritis. Mild bladder wall thickening which is l ikely due to underdistention. The uterus is surgically absent. Fluid-filled large bowel. No colonic w all thickening identified. The appendix is likely visualized on image 380 appears normal in caliber. IMPRESSION: 1. Mild circumferential thickening involving the distal ileal loops within the deep pelvis with adjac ent fat stranding and mesenteric edema. This is consistent with a nonspecific enteritis. 2. Fluid-filled large bowel. This is likely reactive to the enteritis. 3. No evidence for bowel obstruction. 4. Please refer to the same day chest CTA for further evaluation of the lung bases. ACT 112: Negative or not required by law. Electronically signed by: Ernst Murray M.D. 01/11/2022 4:47 PM
[2022-01-11] MEDS ORDERED: cefTRIAXone SODIUM 2,000 MG in DEXTROSE 5% 50 ML IV SCH (17:45)
--- NOTE | 2022-01-11 18:06 | History & Physical Report ---
Date of Service January 11, 2022 Assessment & Plan (1) Shortness of breath: (2) Diarrhea: (3) History of right below knee amputation: (4) Opioid dependence: (5) Anxiety: (6) Iron deficiency anemia: (7) Hyperglycemia due to type 2 diabetes mellitus: (8) Depression: (9) HTN (hypertension): (10) PAD (peripheral artery disease): (11) Hyperlipidemia: Plan: 56yo F PMH R BKA 12/22, hx. MRSA, DM2 with neuropathy, opioid dependence, anxiety/depression, HTN, PAD/CAD, HLD, gastroparesis here for SOB vomitting with new diarrhea in hospital, suspicion for sepsis. () Sepsis 2/2 Possible C. Diff -Hx multiple antibiotics in last month including vanc, dapto, linezolid, doxy will hold home linezolid -tachy 129 on 4L NC temp 35.8 blue fingers BP 97/67-152/76 -Lactate 2.9, WBC 25.61 -CT Abd enteritis -In ED got IV vanc, IV rocephin, both dc'd -started on oral vanc, PO Doxycycline to finish home course (10 day BID started 01/04, day 8) -Bcx stool culture pending -received 2L IVF NS, started on 240cc/h LR -started clear liquid diet -recheck CBC BMP Mg Phos lactate in AM ()SOB -CT Chest emphysema, CXR unremarkable, unlikely PNA or PE -likely 2/2 to sepsis ()Hyperglycemia with DM2 -BS 307, pH 7.43, unlikely DKA HHS will resume home insulin recheck AM -home 15U lantus, 3U lispro with meals -hold home metformin ()Recent R BKA -BKA no leakage discharge erythema is painful to touch, less likely cellulitis/osteo but will complete doxycycline course -will continue home percocet, hold oxycodone for now given risk hypotension shock -continue home lyrica, ropinirol, cyclobensaprine ()Depression/Anxiety -continue home nortriptyline -home ativan on hold given risk hypotension shock ()Opioid Dependence -will continue home percocet, hold oxycodone for now given risk hypotension shock -recieved fentanyl in ED ()HTN -hold home lisinopril metoprolol for now given risk shock, recheck BP in AM ()GERD -continue home famotidine ()Insomnia -continue home PRN zolpidem FENa: clear liquid diet Code Status: Full DVT PPX: lovenox 30mg SQ daily PT/OT: not ordered Case Management: pending Dispo: med/tele, admit inpatient Mandie Velasco Do PGY 1, FCM History of Present Illness Chief Complaint: SOB Vomitting Diarrhea Sepsis Primary Care Provider: Vince Vernon, DO 56yo F PMH R BKA 12/22, hx. MRSA, DM2 with neuropathy, opioid dependence, anxiety/depression, HTN, PAD/CAD, HLD, gastroparesis here for SOB vomitting with new diarrhea in hospital. She states yesterday she developed SOB vomiting felt lightheaded and 'fuzzy', states caught her before she fell. She had home nursing over who noted her systolic BP was over 200, told patient's daughter to call EMS. Patient did not like how EMS treated her so declined the ride. Later that day when her dizziness and SOB got worse she asked her to take her to the hospital. Patient states she hasn't eaten food in 2 days, states stopped her medication yesterday at 6am because she could not tolerate them. States before that time she has assistance with her medication and takes them regularly. She denies any falls where she hit her head. Denies any rashes, chest or belly pain, sensation and movement intact, denies weakness headache fevers. States she is currently breathing fine on 4L no SOB, just noted blue fingers and states she feels very cold, states her diarrhea started in the hospital. States her vision is normal again. She says she is very thirsty. Patient is Full code. Allergies Allergy/AdvReac Type Severity Reaction Status Date / Time morphine Allergy Severe blisters Verified 01/11/22 15:40 in mouth Sulfa (Sulfonamide Allergy Severe rash/swelli Verified 01/11/22 15:40 Antibiotics) ng iron [From Venofer] Allergy Intermediate Hypertensio Verified 01/11/22 15:40 n vancomycin Allergy Intermediate YULIYA Verified 01/11/22 15:40 SYNDROME---CAN TAKE IF VERY SLOW DRIP. amoxicillin [From Augmentin] Allergy Mild itching/power Verified 01/11/22 15:40 h clavulanic acid Allergy Mild itching/power Verified 01/11/22 15:40 [From Augmentin] h Home Medications Medication Instructions Recorded Confirmed Type nortriptyline 50 mg capsule 100 mg PO HS 10/19/20 01/11/22 History (Pamelor) ropinirole 2 mg tablet 4 mg PO HS 10/19/20 01/11/22 History lancets (OneTouch UltraSoft #100 ea 11/12/20 01/11/22 History Lancets) albuterol sulfate 90 mcg/actuation 1 puff INHALATION QID PRN 03/05/21 01/11/22 History aerosol inhaler (Proventil HFA) metoprolol succinate 50 mg 50 mg PO QAM 03/05/21 01/11/22 History tablet,extended release 24 hr (Toprol XL) insulin glargine 100 unit/mL (3 15 unit SUBCUT HS #1 ml 08/18/21 01/11/22 Rx mL) subcutaneous pen (Basaglar KwikPen U-100 Insulin) insulin lispro 100 unit/mL 3 unit SUBCUT TIDM #1 ml 08/18/21 01/11/22 Rx subcutaneous pen (Humalog KwikPen (U-100) Insulin) aspirin 81 mg tablet,delayed 81 mg PO BID #60 tab 10/04/21 01/11/22 Rx release (Aspirin Low Dose) lisinopril 10 mg tablet 10 mg PO QAM #30 tab 10/04/21 01/11/22 Rx lorazepam 1 mg tablet (Ativan) 1 mg PO TID PRN 11/04/21 01/11/22 History cyclobenzaprine 10 mg tablet 10 mg PO BID tab 11/24/21 01/11/22 History metformin 500 mg tablet,extended 1,000 mg PO DAILY 12/06/21 01/11/22 History release 24 hr famotidine 20 mg tablet 20 mg PO BID #60 tab 12/26/21 01/11/22 Rx linezolid 600 mg tablet 600 mg PO BID #9 tab 12/26/21 01/11/22 Rx metoclopramide HCl 5 mg tablet 5 mg PO AC #90 tab 12/26/21 01/11/22 Rx oxycodone 10 mg tablet,crush 10 mg PO BID #6 tab 12/26/21 01/11/22 Rx resistant,extended release 12 hr (OxyContin) oxycodone-acetaminophen 5 mg-325 2 tab PO Q4H PRN #30 tab 12/26/21 01/11/22 Rx mg tablet (Percocet) zolpidem 12.5 mg tablet,extended 12.5 mg PO HS PRN #0 tab 12/26/21 01/11/22 Rx release,multiphase doxycycline hyclate 100 mg tablet 100 mg PO BID #20 tab 01/04/22 01/11/22 Rx pregabalin 50 mg capsule (Lyrica) 50 mg PO TID 01/04/22 01/11/22 History Past Med/Surg History Medical History 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 No issues per anesthesia postop progress note. Anemia Cellulitis Chronic back pain Depression Diabetic peripheral neuropathy DM2 (diabetes mellitus, type 2) IDDM, A1c 07/2021-11% Gastritis GIB (gastrointestinal bleeding) History of amputation of great toe Hyperlipidemia Insulin dependent diabetes mellitus Iron deficiency anemia Nonobstructive atherosclerosis of coronary artery Numbness of lower extremity Peripheral neuropathy Right second toe ulcer Seizures Surgical History History of cardiac cath done at [facility]; 09/22/19; LM - mild luminal irregularities. LAD - mid 20-30%, distal with myocardial bridge & 30% stenosis. L Cx - mild luminal irregularities. RCA - proximal <30% stenosis; mid/distal vessel mild plaques. PDA - mild luminal irregularities. History of esophagogastroduodenoscopy (EGD) History of right below knee amputation (12/22/21) Right Below Knee Amputation(Right) - Davon Good MD, FACS Family History Mother , age 63 Myocardial infarction Father , age 68 or 69 Myocardial infarction Brother S/P CABG (coronary artery bypass graft) Sister Myocardial infarction x 3; she is 57yo Social History Smoking Status: Former smoker Tobacco Type: Cigarettes packs per day: 0.5; Years Smoked: 20; Cigarettes Per Day: 20; Second Hand Exposure: No; Hx Alcohol Use: No Hx Substance Use: No Preferred Language: Slovak Communication Ability: Effective Visual Impairment: No Limitations Hearing Ability: Normal Manager Test Required: No Beliefs That Will Affect Care: None marital status: Current Living Situation: Spouse and Family current occupational status: unemployed 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 other: raising a grandchild as well; lives in [place] Feels Safe at Home: Yes during the past year weight has: remained stable Assistive Devices: Walker Review of Systems Review of Systems: .see hpi Physical Exam Constitutional: + ill appearing and cooperative Eyes: PERRL, conjunctivae normal, anicteric sclerae ENMT: Mouth: + dry oral mucous membranes Neck: trachea midline, no thyromegaly Respiratory: normal respiratory effort, lungs clear to auscultation Cardiovascular: RRR, no murmur, no edema Extremities: normal capillary refill Chest (Breasts): Chest: normal inspection of chest Gastrointestinal (Abdomen): normal bowel sounds, soft, nontender, no hepatosplenomegaly Abd cold Skin: normal turgor fingers and toes blue Results & Data Results & Data ([facility]) Vital Signs (Past 12 Hours) Vital Signs Temp Pulse Resp BP Pulse Ox 01/11/22 17:00 129 H 24 122/79 98 01/11/22 16:00 121 H 21 140/82 100 01/11/22 15:30 122 H 22 97/67 L 98 01/11/22 14:30 122 H 23 108/73 98 01/11/22 14:08 122 H 16 85/63 L 95 01/11/22 13:59 35.8 C L 84 18 152/76 H Supervising Physician Co-Signing Physician Notes I personally examined the patient and verified all tanner points of history and exam, discussed case, and agree with decision making with Dr Rod krishnamurthy. nausea has improved. very thirsty. stump hurts ongoing vitals noted fatigued appearing, breathing unlabored. cardio tachycardic. abd soft nd nt no masses no organomegaly. R stump dull redness more c/w inflammation and healing than infection - not tense, not bright red, no tracking. incision appearing c/d/i. mild/mod tenderness no crepitis sepsis - borderling septic shock initially given low blood pressures. stool studies pending but highly suspicious for Cdiff - PO vanco, IVF, supportive care stump MRSA colonization - sensitive area, risk for complications if infection ensues - but not appearing overtly infected at this time. continue doxy for now since she's already on it and fairly narrow spectrum (ie unlikely to affect gut adithya more than already affected) - low threshold to dc if Cdiff refractory aggressive fluids for now, d/w pt frankly must use caution w narcotics when BP was borderline and HR still up - don't want to undertreat pain but also have to not drop SVR. DM - insulin management otherwise as above Resident Activity Tracking Resident Involvement: Resident Care Provided Care Provided: Adult Hospital Medicine (1) Hyperglycemia due to type 2 diabetes mellitus Diabetes mellitus medical terminologist insulin use: with medical terminologist use Qualified Code(s): E11.65 - Type 2 diabetes mellitus with hyperglycemia; Z79.4 - terminal clerk (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 (2) Hyperlipidemia Hyperlipidemia type: unspecified Qualified Code(s): E78.5 - Hyperlipidemia, unspecified
[2022-01-11] MEDS ORDERED: POLYETHYLENE (MIRALAX) 17 GM PACK PO PRN (18:09)
[2022-01-11] MEDS ORDERED: ALBUTEROL HFA 8 GM INHALER INH PRN (18:12)
[2022-01-11] MEDS ORDERED: GLUCOSE 10 TABS/TUBE PO PRN (18:51)
[2022-01-11] MEDS ORDERED: DEXTROSE 50% 50 ML SYRINGE IV PRN (18:51)
[2022-01-11] MEDS ORDERED: GLUCOSE 40% GEL 15 GM TUBE PO PRN (18:51)
[2022-01-11] MEDS ORDERED: CARBOHYDRATES FOR HYPOGLYCEMIA PO PRN (18:51)
[2022-01-11] MEDS ORDERED: GLUCAGON FOR INJ 1 MG VIAL SQ PRN (18:51)
[2022-01-11 19:06] LABS: Adenovirus F 40/41 PCR Not Detected (NotDetected); Astrovirus PCR Not Detected (NotDetected); Campylobacter PCR Not Detected (NotDetected); Cryptosporidium PCR Not Detected (NotDetected); Cyclospora cayetanensis PCR Not Detected (NotDetected); Entamoeba histolytica PCR Not Detected (NotDetected); Enteroaggregative E.coli(EAEC) Not Detected (NotDetected); Enteropathogenic E.coli (EPEC) Not Detected (NotDetected); Enterotoxigenic E.coli (ETEC) Not Detected (NotDetected); Giardia lamblia PCR Not Detected (NotDetected); Norovirus GI/GII PCR Not Detected (NotDetected); Plesiomonas shigelloides PCR Not Detected (NotDetected); Rotavirus A PCR Not Detected (NotDetected); Salmonella PCR Not Detected (NotDetected); Sapovirus PCR Not Detected (NotDetected); Shiga-like Toxin E.coli (STEC) Not Detected (NotDetected); Shigella/Enteroinvasive E.coli Not Detected (NotDetected); Vibrio cholerae PCR Not Detected (NotDetected); Vibrio species PCR Not Detected (NotDetected); Yersinia enterocolitica PCR Not Detected (NotDetected)
--- NOTE | 2022-01-11 19:31 | Billing Data ---
Date of Service January 11, 2022 Coding Level of Care Code 74562 Initial Inpt Care Lvl 3
[2022-01-11] MEDS: VANCOMYCIN HCL 125 MG/2.5ML SOLN PO SCH (19:33)
[2022-01-11] MEDS: RASPBERRY SYRUP 5 ML UDP PO SCH (19:33)
[2022-01-11 19:47] LABS: Cdiff Antigen Positive; Cdiff Toxin A+B Negative Cdiff Toxin (Negative)
[2022-01-11] MEDS: LACTATED RINGER'S 1,000 ML IV SCH (19:54)
[2022-01-11] MEDS: ONDANSETRON INJ 2 MG/ML 2 ML VIAL IV PRN (19:55)
[2022-01-11] MEDS: oxyCODONE/ACETAMINOPHEN 5mg/325mg TAB PO PRN (19:55)
[2022-01-11] MEDS ORDERED: INSULIN ASPART PER UNIT SC SCH (21:00)
[2022-01-11] MEDS: DOXYCYCLINE HYCLATE 100 MG CAP PO SCH (21:11)
[2022-01-11] MEDS: CYCLOBENZAPRINE HCL 10 MG TAB PO SCH (21:11)
[2022-01-11] MEDS: ENOXAPARIN INJ 30 MG/0.3 ML SYR SQ SCH (21:11)
[2022-01-11] MEDS: ASPIRIN 81 MG ECTAB PO SCH (21:11)
[2022-01-11] MEDS: FAMOTIDINE 20 MG TAB PO SCH (21:12)
[2022-01-11] MEDS: PREGABALIN 50 MG CAP PO SCH (21:13)
[2022-01-11] MEDS: ZOLPIDEM TARTRATE 10 MG TAB PO PRN (21:13)
[2022-01-11] MEDS: INSULIN GLARGINE SOLOSTAR 100 UNITS/ML 3 ML PEN SC SCH (22:21)
[2022-01-11] MEDS: INSULIN ASPART PER UNIT SC SCH (22:21)
[2022-01-11] MEDS: rOPINIRole HCL 2 MG TABLET PO SCH (22:22)
[2022-01-11] MEDS: NORTRIPTYLINE HCL 25 MG CAP PO SCH (22:22)
[2022-01-11] MEDS: HYDROmorphone INJ 0.5 MG/0.5 ML SYR IV PRN (22:27)
[2022-01-12] MEDS: RASPBERRY SYRUP 5 ML UDP PO SCH ×4 (01:35→20:01)
[2022-01-12] MEDS: LACTATED RINGER'S 1,000 ML IV SCH ×3 (01:35→07:33)
[2022-01-12] MEDS: VANCOMYCIN HCL 125 MG/2.5ML SOLN PO SCH ×4 (01:35→20:01)
[2022-01-12] MEDS: HYDROmorphone INJ 0.5 MG/0.5 ML SYR IV PRN ×5 (01:36→19:59)
[2022-01-12] MEDS: ONDANSETRON INJ 2 MG/ML 2 ML VIAL IV PRN ×4 (01:36→22:41)
[2022-01-12 05:52] LABS: Hematocrit (blood only) 34.1 % (37-47); Hemoglobin 11.1 g/dL (12.0-16.0); Mean Corpuscular Hemoglobin 24.4 pg (25-34); Mean Corpuscular Hgb Conc 32.6 g/dL (32-36); Mean Corpuscular Volume 74.9 fL (80-100); Mean Platelet Volume 9.4 fL (7.4-10.4); Platelet Count 463 K/uL (130-400); RDW Coefficient of Variation 16.6 % (11.5-14.5); RDW Standard Deviation 44.8 fL (36.4-46.3); Red Blood Count 4.55 M/uL (4.2-5.4); White Blood Count 32.94 K/uL (4.8-10.8)
[2022-01-12 05:58] LABS: Basophils # (auto) 0.02 K/uL (0-0.2); Basophils % (auto) 0.1 %; Immature Granulocytes # (auto) 0.21 K/uL (0.00-0.02); Immature Granulocytes % (auto) 0.6 %; Lymphocytes # (auto) 1.67 K/uL (1.2-3.4); Lymphocytes % (auto) 5.1 %; Monocytes # (auto) 3.64 K/uL (0.11-0.59); Monocytes % (auto) 11.1 %; Neutrophils % (auto) 83.1 %
[2022-01-12 06:09] LABS: Calcium 9.1 mg/dl (8.5-10.1); Creatinine Clr Calc Pharmacy 57.1 ml/min; Est GFR (African American) 75.1 ml/min; Est GFR (Non-African American) 64.8 ml/min; Magnesium 1.6 mg/dl (1.7-2.4); Phosphorus 6.2 mg/dl (2.5-4.9); Potassium 4.5 mmol/L (3.5-5.1)
[2022-01-12] MEDS: ACETAMINOPHEN 325 MG TAB PO PRN ×2 (07:33→22:40)
--- NOTE | 2022-01-12 08:02 | Hospitalist Progress Note ---
Date of Service January 12, 2022 Assessment & Plan (1) Sepsis: Plan: 56yo F PMH R BKA 12/22, hx. MRSA, DM2 with neuropathy, opioid dependence, anxiety/depression, HTN, PAD/CAD, HLD, gastroparesis here for SOB vomitting with diarrhe, suspicion for sepsis. Sepsis 2/2 C. Diff gene confirmed on pcr stool toxin negative but clinically ill -Hx multiple antibiotics in last month including vanc, dapto, linezolid, doxy does not appear to have alternate site infetion and leukocytosis is significant -tachy 129 on 4L NC temp 35.8 blue fingers BP 97/67-152/76 -Lactate 2.9, WBC 25.61 -CT chest Abd enteritis no pneumonia -volume resuscitated -started on oral vanc, if clinically deteriorates to consider more broad parenteral antibiotics covering bowel adithya -Bcx negative to date (2) Emphysema lung: Plan: emphysema seen on CT chest, shortness of breath is from this and sepsis, supportive care and oxygen supplementation (3) Hyperglycemia due to type 2 diabetes mellitus: Plan: remains on basal bolus ssi at this time, is mildly hyponatremic but corrects toward 130 (4) History of right below knee amputation: Plan: inital wound looks good and not source of infection, continue pain control continue home Lyrica, ropinirole, cyclobenzaprine x ray knee without fracture (5) Opioid dependence: (6) Anxiety: (7) Iron deficiency anemia: (8) Depression: (9) HTN (hypertension): Plan: hold home lisinopril metoprolol for now given risk shock, (10) Hyponatremia: Plan: does correct somewhat, will check urine sodium, will fluid restrict Plan: FENa: clear liquid diet Code Status: Full DVT PPX: lovenox 30mg SQ daily Admission and Anticipated Discharge Date Admission Date: January 11, 2022 Subjective this pt is in pain both abdominal and phantom pain in leg, plus pain at distal bka area from striking this in her fall still with leukocytosis hyponatremia diarrhea persists Review of Systems Review of Systems: Mild distress and fatigue no headache, no visual changes no speech or swallowing issues no chest pain, pressure or palpitations no shortness of breath, cough or wheezes lower left quadrant abdominal pain, no nausea or vomiting,persistent diarrhea no dysuria, hematuria or frequency left bka pain and persistent swelling no back pain, CVA tenderness or radicular pain typical post op bruising and swelling no focal signs of weakness or numbness or altered sensation no complaints of anxiety or depression.. Physical Exam Physical Exam: The patient appeared well nourished and normally developed she is in moderate distress. Vital signs as documented. Head exam is normocephalic atraumatic Neck is without JVD, thyromegaly, or carotid bruits. Lungs are clear to auscultation, no focal loss of breath sounds Cardiac exam, Rhythm is regular.. No murmurs, rubs or gallops. Abdominal exam reveals normal bowel sounds, soft LLQ mildly tender Right BKA site wound in C/D/I some tenderness to exam Neurologic exam is alert and oriented, no focal loss of strength or sensation with exception of BKA area Results & Data Results & Data ([facility]) Vital Signs (Past 12 Hours) Vital Signs Pulse Resp BP Pulse Ox 01/12/22 07:13 111 H 16 147/88 H 99 01/12/22 04:05 112 H 18 187/99 H 95 Diagnostic Findings Knee X-Ray 01/12/22 12:32 RIGHT KNEE 2 VIEWS CLINICAL HISTORY: Fall with right knee injury. FINDINGS: AP and crosstable lateral views of the right knee are compared to study dated 12/30/2021. The skeletal structures are osteopenic. No acute fracture is identified. There is postoperative change from below knee amputation. Soft tissue edema overlies the stump with skin clips in place. The joint spaces of the knee are maintained. No joint effusion is identified. A calcified fabella is incidentally noted. IMPRESSION: 1. No acute bony abnormality is identified. 2. There is postoperative change from below knee amputation with soft tissue edema overlying the stump and skin clips in place. This is similar to previous. Electronically signed by: Finn Bradshaw M.D. 01/12/2022 1:31 PM PG Care Time/CCT Total # of Minutes Spent Total Time Spent with Patient: Total time spent is greater than 50% in coordination of care (as documented) at patient's floor/unit and/or counseling patient: Coding Level of Care Code 36663 Subseq Hosp Care Lvl 3 Diagnoses History of right below knee amputation Z89.511 Opioid dependence F11.20 Anxiety F41.9 Iron deficiency anemia D50.9 Hyperglycemia due to type 2 diabetes mellitus E11.65; Z79.4 Diabetes mellitus long term care pharmacist insulin use: with nursing home use Depression F32.9 HTN (hypertension) I10 Sepsis A41.9 Sepsis acute organ dysfunction status: unspecified Sepsis type: sepsis due to unspecified organism Emphysema lung J43.9 Hyponatremia E87.1 (1) Hyperglycemia due to type 2 diabetes mellitus Diabetes mellitus long term care pharmacist insulin use: with nursing home use Qualified Code(s): E11.65 - Type 2 diabetes mellitus with hyperglycemia; Z79.4 - [facility] (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 (2) Sepsis Sepsis acute organ dysfunction status: unspecified Sepsis type: sepsis due to unspecified organism Qualified Code(s): A41.9 - Sepsis, unspecified organism
[2022-01-12] MEDS ORDERED: lisinopril 10 MG TAB PO SCH (09:00)
[2022-01-12] MEDS ORDERED: METOPROLOL SUCC 50MG EXT REL TAB PO SCH (09:00)
[2022-01-12] MEDS: FAMOTIDINE 20 MG TAB PO SCH ×2 (09:08→21:40)
[2022-01-12] MEDS: CYCLOBENZAPRINE HCL 10 MG TAB PO SCH ×2 (09:08→21:40)
[2022-01-12] MEDS: PREGABALIN 50 MG CAP PO SCH ×3 (09:08→22:40)
[2022-01-12] MEDS: DOXYCYCLINE HYCLATE 100 MG CAP PO SCH ×2 (09:09→21:40)
[2022-01-12] MEDS: ASPIRIN 81 MG ECTAB PO SCH ×2 (09:09→21:39)
[2022-01-12] MEDS: MAGNESIUM SULFATE / D5W 1 GM/100 ML BAG IV SCH ×2 (09:09→10:13)
[2022-01-12] MEDS: INSULIN ASPART PER UNIT SC SCH ×4 (09:27→22:53)
[2022-01-12] MEDS: oxyCODONE/ACETAMINOPHEN 5mg/325mg TAB PO PRN ×3 (11:11→20:00)
[2022-01-12] MEDS ORDERED: PROMETHAZINE HCL 12.5 MG in SODIUM CHLORIDE 0.9% 50 ML IV PRN (12:32)
[2022-01-12] MEDS ORDERED: PROMETHAZINE 12.5 MG/50.5 ML NSS IV ONE (13:14)
--- NOTE | 2022-01-12 13:33 | XRay Report ---
RIGHT KNEE 2 VIEWS CLINICAL HISTORY: Fall with right knee injury. FINDINGS: AP and crosstable lateral views of the right knee are compared to study dated 12/30/2021. Th e skeletal structures are osteopenic. No acute fracture is identified. There is postoperative change from below knee amputation. Soft tissue edema overlies the stump with skin clips in place. The joint spaces of the knee are maintained. No joint effusion is identified. A calcified fabella is incidental ly noted. IMPRESSION: 1. No acute bony abnormality is identified. 2. There is postoperative change from below knee amputation with soft tissue edema overlying the stum p and skin clips in place. This is similar to previous. Electronically signed by: Finn Bradshaw M.D. 01/12/2022 1:31 PM
--- NOTE | 2022-01-12 16:02 | Electrocardiogram Report ---
Test Reason : Blood Pressure : / mmHG Vent. Rate : 119 BPM Atrial Rate : 119 BPM P-R Int : 128 ms QRS Dur : 084 ms QT Int : 316 ms P-R-T Axes : 070 061 077 degrees QTc Int : 444 ms Poor data quality, interpretation may be adversely affected Sinus tachycardia Otherwise normal ECG When compared with ECG of 16-DEC-2021 06:12, HR has increased by 28 bpm Otherwise no significant change Confirmed by Biju Tolbert ([id number]) on 01/12/2022 4:01:35 PM Referred By: Confirmed By:Biju Tolbert
[2022-01-12] MEDS: ENOXAPARIN INJ 30 MG/0.3 ML SYR SQ SCH (21:40)
[2022-01-12] MEDS: ZOLPIDEM TARTRATE 10 MG TAB PO PRN (22:41)
[2022-01-12] MEDS: INSULIN GLARGINE SOLOSTAR 100 UNITS/ML 3 ML PEN SC SCH (22:54)
[2022-01-13] MEDS: rOPINIRole HCL 2 MG TABLET PO SCH ×2 (00:11→21:25)
[2022-01-13] MEDS: NORTRIPTYLINE HCL 25 MG CAP PO SCH ×2 (00:12→21:26)
[2022-01-13] MEDS: HYDROmorphone INJ 0.5 MG/0.5 ML SYR IV PRN ×4 (00:13→21:14)
[2022-01-13] MEDS: RASPBERRY SYRUP 5 ML UDP PO SCH ×4 (00:13→17:56)
[2022-01-13] MEDS: oxyCODONE/ACETAMINOPHEN 5mg/325mg TAB PO PRN ×2 (00:13→10:38)
[2022-01-13 02:16] LABS: Appearance Urine Cloudy (Clear); Bacteria Urine Automated Negative (Negative); Bilirubin Urine Negative (Negative); Blood Urine Negative (Negative); Color Urine Orange; Epithelial Cell Urine Auto >30 /lpf (0-5); Glucose Urine UA Negative (Negative); Ketones Urine Negative (Negative); Leukocyte Esterase Urine 2+ (Negative); Nitrite Urine Negative (Negative); Protein Urine Negative (Negative); Specific Gravity Urine 1.008 (1.000-1.030); Urobilinogen Urine Negative (Negative); pH Urine 6.5 (4.5-7.5)
[2022-01-13 02:48] LABS: RBC Urine Automated 0-4 /hpf (0-4)
[2022-01-13] MEDS: VANCOMYCIN HCL 125 MG/2.5ML SOLN PO SCH ×4 (03:45→17:56)
[2022-01-13] MEDS: ONDANSETRON INJ 2 MG/ML 2 ML VIAL IV PRN ×2 (04:39→21:14)
[2022-01-13 09:09] LABS: Hematocrit (blood only) 32.7 % (37-47); Hemoglobin 10.7 g/dL (12.0-16.0); Mean Corpuscular Hemoglobin 25.3 pg (25-34); Mean Corpuscular Hgb Conc 32.7 g/dL (32-36); Mean Corpuscular Volume 77.3 fL (80-100); Mean Platelet Volume 9.2 fL (7.4-10.4); Platelet Count 391 K/uL (130-400); RDW Coefficient of Variation 16.9 % (11.5-14.5); RDW Standard Deviation 47.5 fL (36.4-46.3); Red Blood Count 4.23 M/uL (4.2-5.4); White Blood Count 21.86 K/uL (4.8-10.8)
[2022-01-13] MEDS: INSULIN ASPART PER UNIT SC SCH ×4 (09:29→21:28)
[2022-01-13] MEDS: PREGABALIN 50 MG CAP PO SCH (09:32)
[2022-01-13] MEDS: ASPIRIN 81 MG ECTAB PO SCH ×2 (09:33→21:25)
[2022-01-13] MEDS: FAMOTIDINE 20 MG TAB PO SCH ×2 (09:33→21:26)
[2022-01-13] MEDS: CYCLOBENZAPRINE HCL 10 MG TAB PO SCH ×2 (09:33→21:14)
[2022-01-13] MEDS: DOXYCYCLINE HYCLATE 100 MG CAP PO SCH ×2 (09:33→21:25)
[2022-01-13 09:38] LABS: BUN Creatinine Ratio 32.5 (10-20); Calcium 9.1 mg/dl (8.5-10.1); Creatinine Clr Calc Pharmacy 139.1 ml/min; Est GFR (Non-African American) 115.6 ml/min; Magnesium 1.8 mg/dl (1.7-2.4); Potassium 3.8 mmol/L (3.5-5.1)
[2022-01-13] MEDS ORDERED: oxyCODONE HCL IR 5 MG TAB (IMMEDIATE RELEASE) PO PRN (11:05)
[2022-01-13] MEDS ORDERED: ACETAMINOPHEN 500 MG TAB PO PRN (11:06)
[2022-01-13] MEDS: PREGABALIN 100 MG CAP PO SCH ×2 (14:01→21:30)
[2022-01-13] MEDS: ACETAMINOPHEN 500 MG TAB PO SCH ×2 (14:02→21:13)
[2022-01-13] MEDS: oxyCODONE HCL IR 5 MG TAB (IMMEDIATE RELEASE) PO PRN (15:35)
--- NOTE | 2022-01-13 16:27 | Hospitalist Progress Note ---
Date of Service January 13, 2022 Assessment & Plan (1) Sepsis: Plan: 56yo F PMH R BKA /, hx. MRSA, DM2 with neuropathy, opioid dependence, anxiety/depression, HTN, PAD/CAD, HLD, gastroparesis here for SOB vomitting with diarrhe, suspicion for sepsis. Sepsis 2/2 C. Diff gene confirmed on pcr stool toxin negative but clinically ill -Hx multiple antibiotics in last month including vanc, dapto, linezolid, doxy does not appear to have alternate site infetion and leukocytosis is significant but improved on C diff treatment -CT chest Abd enteritis no pneumonia -volume resuscitated -started on oral vanc, add cholestyramine -Bcx negative to date (2) Emphysema lung: Plan: emphysema seen on CT chest, shortness of breath is from this and sepsis, supportive care and oxygen supplementation (3) Hyperglycemia due to type 2 diabetes mellitus: Plan: remains on basal bolus ssi at this time, is mildly hyponatremic but corrects toward 130 (4) History of right below knee amputation: Plan: inital wound looks good and not source of infection, continue pain control continue home Lyrica, ropinirole, cyclobenzaprine x ray knee without fracture, pain from fall and phantom pain have required amendment of pain regime on 01/13/22 (5) Opioid dependence: (6) Anxiety: (7) Iron deficiency anemia: (8) Depression: (9) HTN (hypertension): Plan: hold home lisinopril for lower blood pressures restart low metoprolol as becoming tachy (10) Hyponatremia: Plan: will fluid restrict Plan: Code Status: Full DVT PPX: lovenox 30mg SQ daily Admission and Anticipated Discharge Date Admission Date: January 11, 2022 Subjective this pt is in pain both abdominal and phantom pain in leg, plus pain at distal bka area from striking this in her fall still with leukocytosis hyponatremia diarrhea persists leg pain is still a big pain issue Review of Systems Review of Systems: Mild distress and fatigue no headache, no visual changes no speech or swallowing issues no chest pain, pressure or palpitations no shortness of breath, cough or wheezes lower left quadrant abdominal pain, no nausea or vomiting,persistent diarrhea no dysuria, hematuria or frequency left bka pain and persistent swelling no back pain, CVA tenderness or radicular pain typical post op bruising and swelling no focal signs of weakness or numbness or altered sensation no complaints of anxiety or depression.. Physical Exam Physical Exam: The patient appeared well nourished and normally developed she is in moderate distress. Vital signs as documented. Head exam is normocephalic atraumatic Neck is without JVD, thyromegaly, or carotid bruits. Lungs are clear to auscultation, no focal loss of breath sounds Cardiac exam, Rhythm is regular.. No murmurs, rubs or gallops. Abdominal exam reveals normal bowel sounds, soft LLQ mildly tender Right BKA site wound in C/D/I some tenderness to exam Neurologic exam is alert and oriented, no focal loss of strength or sensation with exception of BKA area Results & Data Results & Data ([facility]) Vital Signs (Past 12 Hours) Vital Signs Temp Pulse Pulse Resp BP Pulse Ox 01/13/22 15:10 99.0 F 107 H 18 131/79 99 01/13/22 10:59 98.6 F 99 H 18 172/82 H 93 01/13/22 08:00 105 H 01/13/22 06:46 97.9 F 92 H 18 154/77 H 93 PG Care Time/CCT Total # of Minutes Spent Total Time Spent with Patient: Total time spent is greater than 50% in coordination of care (as documented) at patient's floor/unit and/or counseling patient: Coding Level of Care Code 04979 Subseq Hosp Care Lvl 3 Diagnoses Sepsis A41.9 Sepsis acute organ dysfunction status: unspecified Sepsis type: sepsis due to unspecified organism Emphysema lung J43.9 Hyperglycemia due to type 2 diabetes mellitus E11.65; Z79.4 Diabetes mellitus remote computer terminal operator insulin use: with jail use History of right below knee amputation Z89.511 Opioid dependence F11.20 Anxiety F41.9 Iron deficiency anemia D50.9 Depression F32.9 HTN (hypertension) I10 Hyponatremia E87.1 (1) Sepsis Sepsis acute organ dysfunction status: unspecified Sepsis type: sepsis due to unspecified organism Qualified Code(s): A41.9 - Sepsis, unspecified organism (2) Hyperglycemia due to type 2 diabetes mellitus Diabetes mellitus remote computer terminal operator insulin use: with remote computer terminal operator use Qualified Code(s): E11.65 - Type 2 diabetes mellitus with hyperglycemia; Z79.4 - alf (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
[2022-01-13] MEDS ORDERED: METOPROLOL TARTRATE 25 MG TAB PO ONE (16:33)
[2022-01-13] MEDS: ENOXAPARIN INJ 30 MG/0.3 ML SYR SQ SCH (21:25)
[2022-01-13] MEDS: INSULIN GLARGINE SOLOSTAR 100 UNITS/ML 3 ML PEN SC SCH (21:28)
[2022-01-13] MEDS: ZOLPIDEM TARTRATE 10 MG TAB PO PRN (21:30)
[2022-01-14] MEDS: RASPBERRY SYRUP 5 ML UDP PO SCH ×5 (00:08→22:34)
[2022-01-14] MEDS: VANCOMYCIN HCL 125 MG/2.5ML SOLN PO SCH ×5 (00:08→22:35)
[2022-01-14] MEDS: HYDROmorphone INJ 0.5 MG/0.5 ML SYR IV PRN ×2 (04:03→22:31)
[2022-01-14] MEDS: oxyCODONE HCL IR 5 MG TAB (IMMEDIATE RELEASE) PO PRN ×3 (06:02→20:29)
[2022-01-14] MEDS: ACETAMINOPHEN 500 MG TAB PO SCH ×3 (08:39→20:31)
[2022-01-14] MEDS: ASPIRIN 81 MG ECTAB PO SCH ×2 (08:40→20:32)
[2022-01-14] MEDS: FAMOTIDINE 20 MG TAB PO SCH ×2 (08:40→20:32)
[2022-01-14] MEDS: METOPROLOL SUCC 25MG EXT REL TAB PO SCH (08:40)
[2022-01-14] MEDS: PREGABALIN 100 MG CAP PO SCH ×3 (08:41→20:29)
[2022-01-14] MEDS: INSULIN ASPART PER UNIT SC SCH ×4 (08:51→20:48)
[2022-01-14] MEDS: CYCLOBENZAPRINE HCL 10 MG TAB PO SCH ×2 (08:52→20:32)
[2022-01-14] MEDS: ONDANSETRON INJ 2 MG/ML 2 ML VIAL IV PRN ×2 (12:36→20:29)
[2022-01-14] MEDS ORDERED: KETOROLAC 30 MG/ML VIAL IV ONE (14:15)
[2022-01-14] MEDS: METOCLOPRAMIDE HCL 5 MG TABLET PO SCH ×2 (18:55→20:33)
[2022-01-14] MEDS: ZOLPIDEM TARTRATE 10 MG TAB PO PRN (20:29)
[2022-01-14] MEDS: ENOXAPARIN INJ 30 MG/0.3 ML SYR SQ SCH (20:32)
[2022-01-14] MEDS: NORTRIPTYLINE HCL 25 MG CAP PO SCH (20:33)
[2022-01-14] MEDS: INSULIN GLARGINE SOLOSTAR 100 UNITS/ML 3 ML PEN SC SCH (20:49)
[2022-01-15] MEDS: HYDROmorphone INJ 0.5 MG/0.5 ML SYR IV PRN ×5 (04:57→22:09)
[2022-01-15] MEDS: VANCOMYCIN HCL 125 MG/2.5ML SOLN PO SCH (04:57)
[2022-01-15] MEDS: RASPBERRY SYRUP 5 ML UDP PO SCH ×4 (04:57→23:21)
[2022-01-15] MEDS: ONDANSETRON INJ 2 MG/ML 2 ML VIAL IV PRN ×2 (05:01→11:43)
[2022-01-15] MEDS: oxyCODONE HCL IR 5 MG TAB (IMMEDIATE RELEASE) PO PRN ×2 (08:19→16:41)
[2022-01-15] MEDS: PREGABALIN 100 MG CAP PO SCH ×3 (08:19→22:09)
[2022-01-15] MEDS: CYCLOBENZAPRINE HCL 10 MG TAB PO SCH ×2 (08:23→22:15)
[2022-01-15] MEDS: ASPIRIN 81 MG ECTAB PO SCH ×2 (08:23→22:13)
[2022-01-15] MEDS: METOCLOPRAMIDE HCL 5 MG TABLET PO SCH ×4 (08:23→22:16)
[2022-01-15] MEDS: ACETAMINOPHEN 500 MG TAB PO SCH ×3 (08:24→22:15)
[2022-01-15] MEDS: METOPROLOL SUCC 25MG EXT REL TAB PO SCH (08:24)
[2022-01-15] MEDS: FAMOTIDINE 20 MG TAB PO SCH ×2 (08:24→22:16)
[2022-01-15] MEDS: INSULIN ASPART PER UNIT SC SCH ×4 (08:32→22:14)
[2022-01-15] MEDS ORDERED: VANCOMYCIN HCL 125 MG/2.5ML SOLN PO SCH (12:00)
--- NOTE | 2022-01-15 12:20 | Hospitalist Progress Note ---
Date of Service January 15, 2022 Assessment & Plan (1) Sepsis: Plan: 56yo F PMH R BKA 12/22, hx. MRSA, DM2 with neuropathy, opioid dependence, anxiety/depression, HTN, PAD/CAD, HLD, gastroparesis here for SOB vomitting with diarrhe, suspicion for sepsis. Sepsis 2/2 C. Diff gene confirmed on pcr stool toxin negative but clinically ill since diarrhea has worsened will repeat C. difficile to see if toxins are positive increase oral vancomycin to [address] with attention to her colon for megacolon and also changes of ischemic colitis -Hx multiple antibiotics in last month including vanc, dapto, linezolid, doxy -CT chest Abd enteritis no pneumonia -volume resuscitated -Continues on oral vanc dose increased on 01/15/2022, add cholestyramine -Bcx negative to date urine has now resulted with Enterococcus not yet further species identified. Patient is not complaining of urinary complaints but more recurrence of her diarrhea will await further identification before starting on antibiotic, given the pathogenic nature of this organism I would believe it would be beneficial to treat it (2) Emphysema lung: Plan: emphysema seen on CT chest, shortness of breath is from this and sepsis, supportive care and oxygen supplementation (3) Hyperglycemia due to type 2 diabetes mellitus: Plan: remains on basal bolus ssi at this time, is mildly hyponatremic but corrects toward 130 (4) History of right below knee amputation: Plan: inital wound looks good and not source of infection, continue pain control continue home Lyrica, ropinirole, cyclobenzaprine x ray knee without fracture, pain from fall and phantom pain have required amendment of pain regime on 01/13/22 (5) Opioid dependence: (6) Anxiety: (7) Iron deficiency anemia: (8) Depression: (9) HTN (hypertension): Plan: hold home lisinopril for lower blood pressures restart low metoprolol as becoming tachy (10) Hyponatremia: Plan: Has improved with fluid restrict Plan: Code Status: Full DVT PPX: lovenox 30mg SQ daily Admission and Anticipated Discharge Date Admission Date: January 11, 2022 Subjective Patient was doing well with regards to her diarrhea but this morning her diarrhea has recurred and been significant over the last 2 hours she has had multiple events of incontinence and bowel movements. Her leg pain and phantom pain from her amputation has been much improved on her current regimen. Increasing diarrhea she is weak and tired and feels a bit shaky. Review of Systems Review of Systems: Mild distress and fatigue no headache, no visual changes no speech or swallowing issues no chest pain, pressure or palpitations no shortness of breath, cough or wheezes lower left quadrant abdominal pain, no nausea or vomiting, recurring increasing diarrhea at this no dysuria, hematuria or frequency left bka pain and persistent swelling no back pain, CVA tenderness or radicular pain typical post op bruising and swelling no focal signs of weakness or numbness or altered sensation no complaints of anxiety or depression.. Physical Exam Physical Exam: The patient appeared well nourished and normally developed she is in moderate distress. Vital signs as documented. Head exam is normocephalic atraumatic Neck is without JVD, thyromegaly, or carotid bruits. Lungs are clear to auscultation, no focal loss of breath sounds Cardiac exam, Rhythm is regular.. No murmurs, rubs or gallops. Abdominal exam reveals normal bowel sounds, soft L lower quadrant, no guarding no rebound but overall significantly increased in discomfort Right BKA site wound in C/D/I some tenderness to exam Neurologic exam is alert and oriented, no focal loss of strength or sensation with exception of BKA area Results & Data Results & Data ([facility]) Vital Signs (Past 12 Hours) Vital Signs Temp Pulse Pulse Resp BP Pulse Ox 01/15/22 11:24 97.7 F 92 H 20 127/76 98 01/15/22 07:16 91 H 01/15/22 07:05 99.1 F 91 H 20 148/78 H 95 01/15/22 04:12 97.5 F L 84 20 135/78 96 PG Care Time/CCT Total # of Minutes Spent Total Time Spent with Patient: Total time spent is greater than 50% in coordination of care (as documented) at patient's floor/unit and/or counseling patient: Coding Level of Care Code 42026 Subseq Hosp Care Lvl 3 Diagnoses Sepsis A41.9 Sepsis acute organ dysfunction status: unspecified Sepsis type: sepsis due to unspecified organism Emphysema lung J43.9 Hyperglycemia due to type 2 diabetes mellitus E11.65; Z79.4 Diabetes mellitus half-way insulin use: with fun house attendant use History of right below knee amputation Z89.511 Opioid dependence F11.20 Anxiety F41.9 Iron deficiency anemia D50.9 Depression F32.9 HTN (hypertension) I10 Hyponatremia E87.1 (1) Sepsis Sepsis acute organ dysfunction status: unspecified Sepsis type: sepsis due to unspecified organism Qualified Code(s): A41.9 - Sepsis, unspecified organism (2) Hyperglycemia due to type 2 diabetes mellitus Diabetes mellitus half-way insulin use: with fun house attendant use Qualified Code(s): E11.65 - Type 2 diabetes mellitus with hyperglycemia; Z79.4 - railroad passenger agent (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
[2022-01-15] MEDS: VANCOMYCIN HCL 500 MG/10 ML SOLN PO SCH ×3 (12:22→23:21)
[2022-01-15] MEDS ORDERED: MAGNESIUM SULFATE / D5W 1 GM/100 ML BAG IV ONE (13:00)
[2022-01-15 16:40] LABS: Hematocrit (blood only) 31.8 % (37-47); Mean Corpuscular Hemoglobin 24.2 pg (25-34); Mean Corpuscular Hgb Conc 31.4 g/dL (32-36); Mean Platelet Volume 9.5 fL (7.4-10.4); Platelet Count 422 K/uL (130-400); RDW Coefficient of Variation 16.3 % (11.5-14.5); RDW Standard Deviation 45.4 fL (36.4-46.3); Red Blood Count 4.13 M/uL (4.2-5.4); White Blood Count 13.42 K/uL (4.8-10.8)
[2022-01-15 16:58] LABS: BUN Creatinine Ratio 20.6 (10-20); Creatinine Clr Calc Pharmacy 86.8 ml/min; Est GFR (African American) 115.4 ml/min; Est GFR (Non-African American) 99.6 ml/min; Potassium 3.7 mmol/L (3.5-5.1)
[2022-01-15] MEDS ORDERED: OPTIRAY 320 100ml IV ONE (17:56)
--- NOTE | 2022-01-15 18:40 | CT Scan Report ---
CT SCAN OF THE ABDOMEN AND PELVIS WITH IV CONTRAST CLINICAL HISTORY: C. Difficile colitis. COMPARISON STUDY: Prior abdominal CT scans, most recently dated 01/11/2022. TECHNIQUE: Following the IV administration of 94 cc of Optiray 320, CT scan of the abdomen and pelvi s is performed from the lung bases to the proximal femora. Images are reviewed in the axial, sagittal , and coronal planes. IV contrast was administered without complication. Oral contrast was utilized. A dose lowering technique was utilized adhering to the principles of ALARA. CT DOSE: 406.15 mGy.cm FINDINGS: Lung bases: The heart is normal in size and without pericardial effusion. There are coronary artery c alcifications. The lung bases are clear noting dependent atelectasis. Liver: The contrast-enhanced liver is enlarged, measuring 20 cm in length. The liver is otherwise nor mal in contour and attenuation. There is mild central intrahepatic biliary ductal dilatation. The hep atic veins and portal veins are patent. Gallbladder: Surgically absent noting clips in the gallbladder fossa. Spleen: Normal in size and attenuation. Pancreas: Moderately atrophic and grossly unremarkable. Adrenal glands: Unremarkable. Kidneys: The contrast enhanced kidneys are normal in size and without hydronephrosis. The kidneys enh ance symmetrically. There is a punctate nonobstructing right renal calculus Abdominal vasculature: The abdominal aorta is normal in course and caliber noting advanced atheroscle rotic calcification. Bowel: There is no bowel obstruction. Enteric contrast reaches the distal small bowel. Liquid stool i s seen throughout the colon. There is a relatively short segment of marked wall thickening and edema involving the left colon. This extends from the splenic flexure to the mid descending colon. There is associated mucosal hyperemia and surrounding inflammation and fluid. No similar appearing mucosal th ickening seen throughout the remainder of the colon. Wall thickening of the distal ileum appears impr oswald as compared to 01/11/2022. The appendix is not clearly visualized. Peritoneum: There is no intraperitoneal free air or abdominal ascites. Lymphadenopathy: None. Pelvic viscera: The bladder is normal as visualized. The uterus is surgically absent. No adnexal lesi on is seen. Skeletal structures: The skeletal structures are osteopenic. There is a lumbar sacral spondylosis wit h postoperative change from L5-S1 spinal fusion. No lytic or blastic lesions are seen. IMPRESSION: 1. There is a relatively short segment of severe nonspecific colitis involving the left colon as deta iled above. This has significantly worsened as compared to 01/11/2022. 2. Inflammatory change involving the distal ileum has improved from previous. 3. Liquid stool is seen throughout the colon suggesting diarrheal illness. 4. There is no bowel obstruction. 5. Right-sided nephrolithiasis. 6. Additional findings as above. ACT 112: Negative or not required by law. Electronically signed by: Finn Bradshaw M.D. 01/15/2022 6:38 PM
[2022-01-15] MEDS: ZOLPIDEM TARTRATE 10 MG TAB PO PRN (22:09)
[2022-01-15] MEDS: INSULIN GLARGINE SOLOSTAR 100 UNITS/ML 3 ML PEN SC SCH (22:13)
[2022-01-15] MEDS: ENOXAPARIN INJ 30 MG/0.3 ML SYR SQ SCH (22:13)
[2022-01-15] MEDS: NORTRIPTYLINE HCL 25 MG CAP PO SCH (22:16)
[2022-01-16] MEDS ORDERED: HYDROmorphone INJ 0.5 MG/0.5 ML SYR IV STA ×2 (00:01→10:41)
[2022-01-16] MEDS: oxyCODONE HCL IR 5 MG TAB (IMMEDIATE RELEASE) PO PRN ×3 (03:55→18:03)
[2022-01-16] MEDS: HYDROmorphone INJ 0.5 MG/0.5 ML SYR IV PRN ×4 (05:15→20:34)
[2022-01-16] MEDS: RASPBERRY SYRUP 5 ML UDP PO SCH ×4 (05:24→23:10)
[2022-01-16] MEDS: VANCOMYCIN HCL 500 MG/10 ML SOLN PO SCH (05:25)
[2022-01-16] MEDS ORDERED: NYSTATIN POWDER 15GM BTL EXT PRN (05:49)
[2022-01-16] MEDS ORDERED: MICONAZOLE NITRATE POWDER 43 GM EXT PRN (05:51)
[2022-01-16 07:35] LABS: Basophils # (auto) 0.02 K/uL (0-0.2); Basophils % (auto) 0.2 %; Eosinophils # (auto) 0.73 K/uL (0-0.5); Eosinophils % (auto) 6.6 %; Hematocrit (blood only) 32.7 % (37-47); Hemoglobin 10.2 g/dL (12.0-16.0); Immature Granulocytes # (auto) 0.03 K/uL (0.00-0.02); Immature Granulocytes % (auto) 0.3 %; Lymphocytes # (auto) 2.44 K/uL (1.2-3.4); Lymphocytes % (auto) 22.2 %; Mean Corpuscular Hemoglobin 23.9 pg (25-34); Mean Corpuscular Hgb Conc 31.2 g/dL (32-36); Mean Corpuscular Volume 76.8 fL (80-100); Mean Platelet Volume 9.5 fL (7.4-10.4); Monocytes # (auto) 1.13 K/uL (0.11-0.59); Monocytes % (auto) 10.3 %; Neutrophils # (auto) 6.63 K/uL (1.4-6.5); Neutrophils % (auto) 60.4 %; Platelet Count 419 K/uL (130-400); RDW Coefficient of Variation 16.4 % (11.5-14.5); RDW Standard Deviation 45.8 fL (36.4-46.3); Red Blood Count 4.26 M/uL (4.2-5.4); White Blood Count 10.98 K/uL (4.8-10.8)
[2022-01-16 08:03] LABS: BUN Creatinine Ratio 28.6 (10-20); Creatinine Clr Calc Pharmacy 111.5 ml/min; Est GFR (African American) 125.3 ml/min; Est GFR (Non-African American) 108.2 ml/min; Magnesium 1.3 mg/dl (1.7-2.4); Potassium 3.8 mmol/L (3.5-5.1)
[2022-01-16] MEDS: FAMOTIDINE 20 MG TAB PO SCH ×2 (08:03→20:37)
[2022-01-16] MEDS: ASPIRIN 81 MG ECTAB PO SCH ×2 (08:03→20:36)
[2022-01-16] MEDS: INSULIN ASPART PER UNIT SC SCH ×4 (08:03→21:00)
[2022-01-16] MEDS: LORazepam 1 MG TAB PO PRN ×2 (08:04→14:27)
[2022-01-16] MEDS: ACETAMINOPHEN 500 MG TAB PO SCH ×3 (08:04→20:35)
[2022-01-16] MEDS: METOPROLOL SUCC 25MG EXT REL TAB PO SCH (08:04)
[2022-01-16] MEDS: METOCLOPRAMIDE HCL 5 MG TABLET PO SCH ×4 (08:04→20:38)
[2022-01-16] MEDS: CYCLOBENZAPRINE HCL 10 MG TAB PO SCH ×2 (08:04→20:36)
[2022-01-16] MEDS: PREGABALIN 100 MG CAP PO SCH ×3 (08:04→21:00)
[2022-01-16] MEDS: MAGNESIUM SULFATE / D5W 1 GM/100 ML BAG IV SCH ×3 (10:01→14:07)
[2022-01-16] MEDS: metroNIDAZOLE 500 MG/100 ML BAG IV SCH ×2 (10:02→18:03)
[2022-01-16] MEDS: CEFEPIME 2,000 MG in SYRINGE 0 ML IV SCH ×2 (10:02→18:03)
--- NOTE | 2022-01-16 12:27 | Hospitalist Progress Note ---
Date of Service January 16, 2022 Assessment & Plan (1) Sepsis: Plan: 56yo F PMH R BKA 12/22, hx. MRSA, DM2 with neuropathy, opioid dependence, anxiety/depression, HTN, PAD/CAD, HLD, gastroparesis here for SOB vomitting with diarrhe, suspicion for sepsis. Sepsis 2/2 C. Diff initial gene confirmed on pcr stool toxin negative but clinically ill, Leukocytosis declined with po vanco treatment will complete [address] 01/15/22 shows a relatively short segment of severe nonspecific colitis involving the left colon with wall thickening and edema extends from the splenic flexure to the mid descending colon with mucosal hyperemia this will necessitate starting antibiotics intravenously but continuing the vancomycin -Bcx negative to date urine has now resulted with contaminated specimen multiple organisms seen. Patient is not complaining of urinary complaints but more recurrence of her diarrhea will repeat urinalysis as recommended (2) Emphysema lung: Plan: emphysema seen on CT chest, shortness of breath is from this and sepsis, supportive care and oxygen supplementation (3) Hyperglycemia due to type 2 diabetes mellitus: Plan: remains on basal bolus ssi at this time, is mildly hyponatremic but corrects toward 130 (4) History of right below knee amputation: Plan: inital wound looks good and not source of infection, continue pain control continue home Lyrica, ropinirole, cyclobenzaprine x ray knee without fracture, pain from fall and phantom pain have required amendment of pain regime on 01/13/22 (5) Opioid dependence: (6) Anxiety: (7) Iron deficiency anemia: (8) Depression: (9) HTN (hypertension): Plan: hold home lisinopril for lower blood pressures restart low metoprolol as becoming tachy (10) Hyponatremia: Plan: Has improved with fluid restrict Plan: magnesium remains low, will replete Code Status: Full DVT PPX: lovenox 30mg SQ daily Admission and Anticipated Discharge Date Admission Date: January 11, 2022 Subjective IN the am of 01/15/22! her diarrhea has recurred and been significant over the last 2 hours she has had multiple events of incontinence and bowel movements. Her leg pain and phantom pain from her amputation has worsened also CT abd/pelvis, shows acute colitis in a small section of descending colon worse from previous staring on cefepime and iv flagyl Review of Systems Review of Systems: Mild distress and fatigue no headache, no visual changes no speech or swallowing issues no chest pain, pressure or palpitations no shortness of breath, cough or wheezes lower left quadrant abdominal pain, no nausea or vomiting, recurring increasing diarrhea no dysuria, hematuria or frequency left bka pain and persistent swelling no back pain, CVA tenderness or radicular pain typical post op bruising and swelling no focal signs of weakness or numbness or altered sensation no complaints of anxiety or depression.. Physical Exam Physical Exam: The patient appeared well nourished and normally developed she is in moderate distress. Vital signs as documented. Head exam is normocephalic atraumatic Neck is without JVD, thyromegaly, or carotid bruits. Lungs are clear to auscultation, no focal loss of breath sounds Cardiac exam, Rhythm is regular.. No murmurs, rubs or gallops. Abdominal exam reveals normal bowel sounds, soft L lower quadrant, no guarding no rebound but overall significantly increased in discomfort Right BKA site wound in C/D/I some tenderness to exam Neurologic exam is alert and oriented, no focal loss of strength or sensation with exception of BKA area Results & Data Results & Data ([facility]) Vital Signs (Past 12 Hours) Vital Signs Temp Pulse Pulse Resp BP Pulse Ox 01/16/22 11:04 97.7 F 89 20 135/80 94 01/16/22 07:12 98.1 F 105 H 20 132/77 97 01/16/22 06:33 102 H 01/16/22 03:34 98.2 F 86 18 146/70 H 94 PG Care Time/CCT Total # of Minutes Spent Total Time Spent with Patient: Total time spent is greater than 50% in coordination of care (as documented) at patient's floor/unit and/or counseling patient: Coding Level of Care Code 35651 Subseq Hosp Care Lvl 3 Diagnoses Sepsis A41.9 Sepsis acute organ dysfunction status: unspecified Sepsis type: sepsis due to unspecified organism Emphysema lung J43.9 Hyperglycemia due to type 2 diabetes mellitus E11.65; Z79.4 Diabetes mellitus dried yeast supervisor insulin use: with dried yeast supervisor use History of right below knee amputation Z89.511 Opioid dependence F11.20 Anxiety F41.9 Iron deficiency anemia D50.9 Depression F32.9 HTN (hypertension) I10 Hyponatremia E87.1 (1) Sepsis Sepsis acute organ dysfunction status: unspecified Sepsis type: sepsis due to unspecified organism Qualified Code(s): A41.9 - Sepsis, unspecified organism (2) Hyperglycemia due to type 2 diabetes mellitus Diabetes mellitus dried yeast supervisor insulin use: with dried yeast supervisor use Qualified Code(s): E11.65 - Type 2 diabetes mellitus with hyperglycemia; Z79.4 - hard hat diver (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
[2022-01-16] MEDS: VANCOMYCIN HCL 125 MG/2.5ML SOLN PO SCH ×3 (12:43→23:10)
[2022-01-16] MEDS: KETOROLAC 30 MG/ML VIAL IV PRN ×2 (16:53→23:10)
[2022-01-16] MEDS: ENOXAPARIN INJ 30 MG/0.3 ML SYR SQ SCH (20:38)
[2022-01-16] MEDS: ZOLPIDEM TARTRATE 10 MG TAB PO PRN (20:59)
[2022-01-16] MEDS: INSULIN GLARGINE SOLOSTAR 100 UNITS/ML 3 ML PEN SC SCH (21:00)
[2022-01-16] MEDS: NORTRIPTYLINE HCL 25 MG CAP PO SCH (21:02)
[2022-01-17] MEDS: CEFEPIME 2,000 MG in SYRINGE 0 ML IV SCH ×3 (02:16→18:11)
[2022-01-17] MEDS: metroNIDAZOLE 500 MG/100 ML BAG IV SCH ×3 (02:18→18:12)
[2022-01-17] MEDS: HYDROmorphone INJ 0.5 MG/0.5 ML SYR IV PRN ×3 (03:34→21:55)
[2022-01-17] MEDS: ONDANSETRON INJ 2 MG/ML 2 ML VIAL IV PRN (03:43)
[2022-01-17] MEDS: oxyCODONE HCL IR 5 MG TAB (IMMEDIATE RELEASE) PO PRN ×3 (03:51→16:47)
[2022-01-17] MEDS: KETOROLAC 30 MG/ML VIAL IV PRN (05:46)
[2022-01-17] MEDS: LORazepam 1 MG TAB PO PRN ×2 (05:46→10:56)
[2022-01-17] MEDS: RASPBERRY SYRUP 5 ML UDP PO SCH ×3 (05:49→18:13)
[2022-01-17] MEDS: VANCOMYCIN HCL 125 MG/2.5ML SOLN PO SCH ×3 (05:49→18:13)
[2022-01-17] MEDS: METOCLOPRAMIDE HCL 5 MG TABLET PO SCH ×4 (07:40→21:53)
[2022-01-17] MEDS ORDERED: HYDROmorphone INJ 0.5 MG/0.5 ML SYR IV STA (10:19)
[2022-01-17] MEDS: ASPIRIN 81 MG ECTAB PO SCH ×2 (10:25→21:48)
[2022-01-17] MEDS: ACETAMINOPHEN 500 MG TAB PO SCH ×3 (10:25→21:47)
[2022-01-17] MEDS: FAMOTIDINE 20 MG TAB PO SCH ×2 (10:26→21:49)
[2022-01-17] MEDS: CYCLOBENZAPRINE HCL 10 MG TAB PO SCH ×2 (10:26→21:48)
[2022-01-17] MEDS: METOPROLOL SUCC 25MG EXT REL TAB PO SCH (10:27)
[2022-01-17] MEDS: PREGABALIN 100 MG CAP PO SCH ×2 (10:34→21:52)
[2022-01-17] MEDS: INSULIN ASPART PER UNIT SC SCH ×4 (10:46→21:51)
--- NOTE | 2022-01-17 13:21 | Hospitalist Progress Note ---
Date of Service January 17, 2022 Assessment & Plan (1) Sepsis: Plan: 56yo F PMH R BKA 12/22, hx. MRSA, DM2 with neuropathy, opioid dependence, anxiety/depression, HTN, PAD/CAD, HLD, gastroparesis here for SOB vomitting with diarrhe, suspicion for sepsis. Sepsis 2/2 C. Diff initial gene confirmed on pcr stool toxin negative but clinically ill, Leukocytosis declined with po vanco treatment will complete [address] 01/15/22 shows a relatively short segment of severe nonspecific colitis involving the left colon with wall thickening and edema extends from the splenic flexure to the mid descending colon with mucosal hyperemia this will necessitate starting antibiotics intravenously but continuing the po vancomycin -Bcx negative to date urine has now resulted with contaminated specimen multiple organisms seen. Patient is not complaining of urinary complaints but more recurrence of her diarrhea will repeat urinalysis as recommended (2) Emphysema lung: Plan: emphysema seen on CT chest, shortness of breath is from this and sepsis, supportive care and oxygen supplementation (3) Hyperglycemia due to type 2 diabetes mellitus: Plan: remains on basal bolus ssi at this time, is mildly hyponatremic but corrects toward 130 (4) History of right below knee amputation: Plan: inital wound looks good and not source of infection, continue pain control continue home Lyrica, ropinirole, cyclobenzaprine x ray knee without fracture, pain from fall and phantom pain have required amendment of pain regime on 01/17/22 I called outpt pharmacy it is try fentanyl patch is awaiting prior auth and pcp did not complete will have faxed to us (5) Opioid dependence: (6) Anxiety: (7) Iron deficiency anemia: (8) Depression: (9) HTN (hypertension): Plan: hold home lisinopril for lower blood pressures restart low metoprolol as becoming tachy (10) Hyponatremia: Plan: Has improved with fluid restrict Plan: magnesium remains low, will replete Code Status: Full DVT PPX: lovenox 30mg SQ daily Admission and Anticipated Discharge Date Admission Date: January 11, 2022 Subjective IN the am of 01/15/22her diarrhea has recurred and been significant, CT abd/pelvis shows severe colitis in descending colon, with surrounding inflammation on cefepime and iv flagyl Her leg pain and phantom pain from her amputation has worsened also 01/17 crying in regard to leg pain, will increase lyrica and also dilaudid Review of Systems Review of Systems: Mild distress and fatigue no headache, no visual changes no speech or swallowing issues no chest pain, pressure or palpitations no shortness of breath, cough or wheezes lower left quadrant abdominal pain, no nausea or vomiting, recurring increasing diarrhea no dysuria, hematuria or frequency left bka pain and persistent swelling no back pain, CVA tenderness or radicular pain typical post op bruising and swelling no focal signs of weakness or numbness or altered sensation no complaints of anxiety or depression.. Physical Exam Physical Exam: The patient appeared well nourished and normally developed she is in moderate distress. Vital signs as documented. Head exam is normocephalic atraumatic Neck is without JVD, thyromegaly, or carotid bruits. Lungs are clear to auscultation, no focal loss of breath sounds Cardiac exam, Rhythm is regular.. No murmurs, rubs or gallops. Abdominal exam reveals normal bowel sounds, soft L lower quadrant, no guarding no rebound but overall significantly increased in discomfort Right BKA site wound in C/D/I some tenderness to exam Neurologic exam is alert and oriented, no focal loss of strength or sensation with exception of BKA area Results & Data Results & Data ([facility]) Vital Signs (Past 12 Hours) Vital Signs Temp Pulse Resp BP BP Pulse Ox 01/17/22 12:00 98.4 F 90 18 143/81 H 93 01/17/22 07:29 98.8 F 96 H 16 154/77 H 97 01/17/22 03:37 97.5 F L 86 18 175/78 H 97 PG Care Time/CCT Total # of Minutes Spent Total Time Spent with Patient: Total time spent is greater than 50% in coordination of care (as documented) at patient's floor/unit and/or counseling patient: Coding Level of Care Code 58719 Subseq Hosp Care Lvl 2 Diagnoses Sepsis A41.9 Sepsis acute organ dysfunction status: unspecified Sepsis type: sepsis due to unspecified organism Emphysema lung J43.9 Hyperglycemia due to type 2 diabetes mellitus E11.65; Z79.4 Diabetes mellitus longterm insulin use: with longterm use History of right below knee amputation Z89.511 Opioid dependence F11.20 Anxiety F41.9 Iron deficiency anemia D50.9 Depression F32.9 HTN (hypertension) I10 Hyponatremia E87.1 (1) Sepsis Sepsis acute organ dysfunction status: unspecified Sepsis type: sepsis due to unspecified organism Qualified Code(s): A41.9 - Sepsis, unspecified organism (2) Hyperglycemia due to type 2 diabetes mellitus Diabetes mellitus longterm insulin use: with assistant terminal manager use Qualified Code(s): E11.65 - Type 2 diabetes mellitus with hyperglycemia; Z79.4 - correction (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
[2022-01-17] MEDS: ENOXAPARIN INJ 30 MG/0.3 ML SYR SQ SCH (21:49)
[2022-01-17] MEDS: INSULIN GLARGINE SOLOSTAR 100 UNITS/ML 3 ML PEN SC SCH (21:50)
[2022-01-17] MEDS: NORTRIPTYLINE HCL 25 MG CAP PO SCH (21:52)
[2022-01-17] MEDS: ZOLPIDEM TARTRATE 10 MG TAB PO PRN (21:52)
[2022-01-18] MEDS: VANCOMYCIN HCL 125 MG/2.5ML SOLN PO SCH ×5 (00:24→23:22)
[2022-01-18] MEDS: RASPBERRY SYRUP 5 ML UDP PO SCH ×5 (00:24→23:22)
[2022-01-18] MEDS: ONDANSETRON INJ 2 MG/ML 2 ML VIAL IV PRN (01:27)
[2022-01-18] MEDS: oxyCODONE HCL IR 5 MG TAB (IMMEDIATE RELEASE) PO PRN ×4 (01:27→20:48)
[2022-01-18] MEDS: CEFEPIME 2,000 MG in SYRINGE 0 ML IV SCH ×2 (01:32→09:51)
[2022-01-18] MEDS: metroNIDAZOLE 500 MG/100 ML BAG IV SCH ×3 (01:32→17:19)
[2022-01-18] MEDS: HYDROmorphone INJ 0.5 MG/0.5 ML SYR IV PRN ×5 (03:09→21:33)
[2022-01-18] MEDS: KETOROLAC 30 MG/ML VIAL IV PRN ×3 (06:06→18:10)
[2022-01-18] MEDS: FAMOTIDINE 20 MG TAB PO SCH ×2 (07:42→20:47)
[2022-01-18] MEDS: ACETAMINOPHEN 500 MG TAB PO SCH ×3 (07:42→20:43)
[2022-01-18] MEDS: CYCLOBENZAPRINE HCL 10 MG TAB PO SCH ×2 (07:43→20:47)
[2022-01-18] MEDS: METOCLOPRAMIDE HCL 5 MG TABLET PO SCH ×4 (07:44→20:44)
[2022-01-18] MEDS: METOPROLOL SUCC 25MG EXT REL TAB PO SCH (07:44)
[2022-01-18] MEDS: ASPIRIN 81 MG ECTAB PO SCH ×2 (07:44→20:43)
[2022-01-18] MEDS: PREGABALIN 100 MG CAP PO SCH ×2 (07:49→20:49)
[2022-01-18] MEDS: INSULIN ASPART PER UNIT SC SCH ×5 (08:42→20:45)
--- NOTE | 2022-01-18 15:28 | Hospitalist Progress Note ---
Date of Service January 18, 2022 Assessment & Plan (1) Sepsis: Plan: 56yo F PMH R BKA 12/22, hx. MRSA, DM2 with neuropathy, opioid dependence, anxiety/depression, HTN, PAD/CAD, HLD, gastroparesis here for SOB vomitting with diarrhea0, suspicion for sepsis. Sepsis 2/2 suspected CHF versus infectious colitis C. difficile gene positive, stool toxin negative. Clinically ill with severe liquid diarrhea, multiple bowel movements CTab/pelvis: Short segment of nonspecific colitis involving left colon with wall thickening and edema extending from the splenic flexure to mid descending colon with mucosal hyperemia. Antibiotics initiated based on this with additional p.o. vancomycin for C. difficile coverage Blood cultures no growth to date UC multiple organisms, consistent with contaminant. No urinary symptoms First episode. Will treat with vancomycin 125 mg 4 times daily 10-day course. Given above CT findings and clinical illness with concern for sepsis we will treat for 5 days with C. difficile treatment extended at least 5 days past last antibiotic. Will convert to Cipro/Flagyl, discontinue antibiotics on 01/20 and continue vancomycin p.o. through 01/26 Progressing, still feels ill. High readmission risk will antibiotics and follow for continued clinical improvement, and feeling hopeful for discharge tomorrow (2) Emphysema lung: Plan: emphysema seen on CT chest, shortness of breath is from this and sepsis, supportive care and oxygen supplementation (3) Hyperglycemia due to type 2 diabetes mellitus: Plan: remains on basal bolus ssi at this time BMP, CBC pending for morning (4) History of right below knee amputation: Plan: inital wound looks good and not source of infection, continue pain control continue home Lyrica, ropinirole, cyclobenzaprine x ray knee without fracture, pain from fall and phantom pain have required amend ment of pain regime on 01/17/22 Outpatient fentanyl patch is awaiting prior auth and pcp did not complete will have faxed to us (5) Opioid dependence: (6) Anxiety: (7) Iron deficiency anemia: (8) Depression: (9) HTN (hypertension): Plan: hold home lisinopril for lower blood pressures restart low metoprolol as becoming tachy (10) Hyponatremia: Plan: Has improved with fluid restrict Plan: Code Status: Full DVT PPX: lovenox 30mg SQ daily Admission and Anticipated Discharge Date Admission Date: January 11, 2022 Subjective Seen at bedside. Continues to have some diarrhea, starting to improve. 3 liquid bowel movements today. Still feels extremely fatigued, denies fevers. No shaking chills/rigors. Denies shortness of breath difficulty breathing or chest pain. Endorses some abdominal pain slowly improving. Review of Systems Review of Systems: All systems reviewed & are unremarkable except as noted in Subjective Physical Exam Physical Exam: General: A&Ox3. NAD. Cooperative. HEENT: Atraumatic, normocephalic. Vision and hearing grossly intact. Pulm: CTAB A&P. -wheezes, -rales, -rhonchi. Symmetrical chest rise. No increase in work of breathing. No respiratory distress. Cardiac: RRR, -mrg. Radial pulses intact and symmetrical. Abdominal: Mildly tender, nondistended, soft. BS present. Extremities: Right BKA with wound C/D/I. No erythema. No dehiscence Results & Data Results & Data ([facility]) Vital Signs (Past 12 Hours) Vital Signs Temp Pulse Pulse Resp BP BP Pulse Ox 01/18/22 14:58 75 01/18/22 11:29 36.8 C 85 18 131/81 99 01/18/22 08:00 88 01/18/22 07:43 36.8 C 87 20 154/90 H 96 PG Care Time/CCT Total # of Minutes Spent Total Time Spent with Patient: Total time spent is greater than 50% in coordination of care (as documented) at patient's floor/unit and/or counseling patient: Coding Level of Care Code 02656 Subseq Hosp Care Lvl 2 Diagnoses Sepsis A41.9 Sepsis acute organ dysfunction status: unspecified Sepsis type: sepsis due to unspecified organism Emphysema lung J43.9 Hyperglycemia due to type 2 diabetes mellitus E11.65; Z79.4 Diabetes mellitus tank terminal gauger insulin use: with mcfp use History of right below knee amputation Z89.511 Opioid dependence F11.20 Anxiety F41.9 Iron deficiency anemia D50.9 Depression F32.9 HTN (hypertension) I10 Hyponatremia E87.1 (1) Sepsis Sepsis acute organ dysfunction status: unspecified Sepsis type: sepsis due to unspecified organism Qualified Code(s): A41.9 - Sepsis, unspecified organism (2) Hyperglycemia due to type 2 diabetes mellitus Diabetes mellitus mcfp insulin use: with tank terminal gauger use Qualified Code(s): E11.65 - Type 2 diabetes mellitus with hyperglycemia; Z79.4 - MCFP (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
[2022-01-18] MEDS: NORTRIPTYLINE HCL 25 MG CAP PO SCH (20:43)
[2022-01-18] MEDS: INSULIN GLARGINE SOLOSTAR 100 UNITS/ML 3 ML PEN SC SCH (20:44)
[2022-01-18] MEDS: ENOXAPARIN INJ 30 MG/0.3 ML SYR SQ SCH (20:46)
[2022-01-18] MEDS: CEFDINIR 300 MG CAP PO SCH (20:47)
[2022-01-18] MEDS: ZOLPIDEM TARTRATE 10 MG TAB PO PRN (21:32)
[2022-01-19] MEDS: KETOROLAC 30 MG/ML VIAL IV PRN ×3 (00:37→16:48)
[2022-01-19] MEDS: HYDROmorphone INJ 0.5 MG/0.5 ML SYR IV PRN ×6 (01:33→23:50)
[2022-01-19] MEDS: metroNIDAZOLE 500 MG/100 ML BAG IV SCH ×3 (01:36→18:24)
[2022-01-19] MEDS: oxyCODONE HCL IR 5 MG TAB (IMMEDIATE RELEASE) PO PRN ×2 (03:08→11:50)
[2022-01-19] MEDS: RASPBERRY SYRUP 5 ML UDP PO SCH ×4 (05:34→23:25)
[2022-01-19] MEDS: VANCOMYCIN HCL 125 MG/2.5ML SOLN PO SCH ×4 (05:34→23:25)
[2022-01-19 06:39] LABS: Basophils # (auto) 0.02 K/uL (0-0.2); Basophils % (auto) 0.2 %; Eosinophils # (auto) 0.49 K/uL (0-0.5); Eosinophils % (auto) 4.4 %; Hematocrit (blood only) 31.9 % (37-47); Hemoglobin 9.9 g/dL (12.0-16.0); Immature Granulocytes # (auto) 0.07 K/uL (0.00-0.02); Immature Granulocytes % (auto) 0.6 %; Lymphocytes # (auto) 1.88 K/uL (1.2-3.4); Lymphocytes % (auto) 16.9 %; Mean Corpuscular Volume 77.4 fL (80-100); Mean Platelet Volume 9.6 fL (7.4-10.4); Monocytes # (auto) 1.58 K/uL (0.11-0.59); Monocytes % (auto) 14.2 %; Neutrophils # (auto) 7.11 K/uL (1.4-6.5); Neutrophils % (auto) 63.7 %; Platelet Count 333 K/uL (130-400); RDW Coefficient of Variation 16.5 % (11.5-14.5); RDW Standard Deviation 46.5 fL (36.4-46.3); Red Blood Count 4.12 M/uL (4.2-5.4); White Blood Count 11.15 K/uL (4.8-10.8)
[2022-01-19 07:11] LABS: BUN Creatinine Ratio 28.1 (10-20); Calcium 9.2 mg/dl (8.5-10.1); Creatinine Clr Calc Pharmacy 96.4 ml/min; Est GFR (African American) 119.3 ml/min; Est GFR (Non-African American) 102.9 ml/min; Potassium 4.2 mmol/L (3.5-5.1)
[2022-01-19] MEDS: METOCLOPRAMIDE HCL 5 MG TABLET PO SCH ×4 (07:49→20:51)
--- NOTE | 2022-01-19 07:52 | Discharge Summary ---
Date of Service January 19, 2022 Admission HPI Per Admitting Provider 56yo F PMH R BKA 12/22, hx. MRSA, DM2 with neuropathy, opioid dependence, anxiety/depression, HTN, PAD/CAD, HLD, gastroparesis here for SOB vomitting with new diarrhea in hospital. She states yesterday she developed SOB vomiting felt lightheaded and 'fuzzy', states caught her before she fell. She had home nursing over who noted her systolic BP was over 200, told patient's daughter to call EMS. Patient did not like how EMS treated her so declined the ride. Later that day when her dizziness and SOB got worse she asked her to take her to the hospital. Patient states she hasn't eaten food in 2 days, states stopped her medication yesterday at 6am because she could not tolerate them. States before that time she has assistance with her medication and takes them regularly. She denies any falls where she hit her head. Denies any rashes, chest or belly pain, sensation and movement intact, denies weakness headache fevers. States she is currently breathing fine on 4L no SOB, just noted blue fingers and states she feels very cold, states her diarrhea started in the hospital. States her vision is normal again. She says she is very thirsty. Patient is Full code. Principal Diagnosis Infectious colitis Discharge Exam General: A&Ox3. NAD. Cooperative. HEENT: Atraumatic, normocephalic. Vision and hearing grossly intact. Pulm: CTAB A&P. -wheezes, -rales, -rhonchi. Symmetrical chest rise. No increase in work of breathing. No respiratory distress. Cardiac: RRR, -mrg. Radial pulses intact and symmetrical. Abdominal: Mildly tender, nondistended, soft. BS present. Extremities: Right BKA with wound C/D/I. No erythema. No dehiscence Discharge Data Allergies Allergy/AdvReac Type Severity Reaction Status Date / Time morphine Allergy Severe blisters Verified 01/11/22 15:40 in mouth Sulfa (Sulfonamide Allergy Severe rash/swelli Verified 01/11/22 15:40 Antibiotics) ng iron [From Venofer] Allergy Intermediate Hypertensio Verified 01/11/22 15:40 n vancomycin Allergy Intermediate YULIYA Verified 01/11/22 15:40 SYNDROME---CAN TAKE IF VERY SLOW DRIP. amoxicillin [From Augmentin] Allergy Mild itching/power Verified 01/11/22 15:40 h clavulanic acid Allergy Mild itching/power Verified 01/11/22 15:40 [From Augmentin] h Consultations 01/11/22 17:01 ED Decision to Admit Stat 01/18/22 17:50 Consult Behavioral Health Liaison Routine Ordered Studies 01/11/22 14:16 CT angio chest PE protocol Stat 01/11/22 15:04 CT abd pelvis IV con only Stat 01/15/22 11:11 CT abd pelvis oral and IV con Routine Hospital Course (1) Sepsis: 56yo F PMH R BKA 12/22, hx. MRSA, DM2 with neuropathy, opioid dependence, anxiety/depression, HTN, PAD/CAD, HLD, gastroparesis here for SOB vomitting with diarrhea suspicion for sepsis. Was treated clinically for C. difficile, additional antibiotic coverage for infectious colitis given CT findings below. 10-day course of vancomycin for C. difficile was extended to cover for at least a full 5 days past completion of other antibiotics. Patient was clinically improving with great improvement in her diarrhea and energy by time of discharge. To do as outpatient: 1. Continue cefdinir to milligrams twice daily and Flagyl 500 mg 3 times daily until 01/20 2. Continue oral vancomycin Dotagraf milligrams 4 times daily through 01/26 3. Routine follow-up to PCP, weekly blood work as needed, referral to GI if not improved/recurrent symptoms Sepsis 2/2 suspected CHF versus infectious colitis C. difficile gene positive, stool toxin negative. Clinically ill with severe liquid diarrhea, multiple bowel movements CTab/pelvis: Short segment of nonspecific colitis involving left colon with wall thickening and edema extending from the splenic flexure to mid descending colon with mucosal hyperemia. Antibiotics initiated based on this with additional p.o. vancomycin for C. difficile coverage Blood cultures no growth to date UC multiple organisms, consistent with contaminant. No urinary symptoms First episode. Will treat with vancomycin 125 mg 4 times daily 10-day course, extended to cover for least 5 days post last dose of antibiotics below Given above CT findings and clinical illness with concern for sepsis we will treat for 5 days with C. difficile treatment extended at least 5 days past last antibiotic. Converted to cefdinir/Flagyl, discontinue antibiotics on 01/20 and continue vancomycin p.o. through 01/26 (2) Emphysema lung: emphysema seen on CT chest, shortness of breath is from this and sepsis, supportive care and oxygen supplementation (3) Hyperglycemia due to type 2 diabetes mellitus: remains on basal bolus ssi at this time BMP, CBC pending for morning (4) History of right below knee amputation: inital wound looks good and not source of infection, continue pain control continue home Lyrica, ropinirole, cyclobenzaprine x ray knee without fracture, pain from fall and phantom pain have required amendment of pain regime on 01/17/22 Outpatient fentanyl patch is awaiting prior auth and pcp did not complete will have faxed to us (5) Opioid dependence: (6) Anxiety: (7) Iron deficiency anemia: (8) Depression: (9) HTN (hypertension): Some protein initially held for soft blood pressures, resumed on discharge and patient was normotensive (10) Hyponatremia: Has improved with fluid restrict Code Status: Full DVT PPX: lovenox 30mg SQ daily Total Time Total Time Spent Total Time Spent (In Minutes): Time spend day of discharge 35 minutes including direct patient care, documentation, review of labs and images, and coordination of care. Discharge Plan Discharge Items Patient Disposition: Home - Home Health Services Reason For Visit: SEPSIS Discharge Diagnosis: Sepsis 2/2 Colitis Activity: Resume your previous activity Non-emergency contact: Primary Care Provider Call non-emergency contact if: you have any medication questions, your symptoms worsen and you have a fever Follow-up/Referrals: Vince Vernon, DO [Primary Care Provider] - Diet: Carb Consistent or DM2 Addtl Attending Provider Instructions: You are seen in the hospital for sepsis/infection. Your CT scan showed evidence of inflammation in the colon (colitis). Your testing for C. difficile, a type of infection, was positive although your toxin testing was negative. This bacteria typically produces a toxin which makes people ill, however due to your clinical illness and symptoms with positive PCR test it was suspected that this was real and you are treated with antibiotics and were slowly clinically improving. Due to your CT findings you are also started on a course of general antibiotics with cefepime/Flagyl which was converted to cefdinir and Flagyl on discharge as noted below. Please continue to take vancomycin by mouth 125 mg approximately every 6 hours until 01/26/2022 to complete a full course of treatment. Due to CT findings were also treated with additional antibiotics. Please take cefdinir 300 mg by mouth in the morning and evening until the evening of 01/20. You have often been prescribed Flagyl, please take Flagyl 500 mg by mouth 3 times daily until the evening of 01/20. Your right knee amputation wound appeared well and did not show signs of infection during admission. Follow-up appointment is being scheduled for you with your primary care physician. You should be seen for reevaluation within 1 week. You should have a CBC and BMP (blood work) to follow your condition within 1 week ordered by your PCP. If you develop any new or worsening symptoms including fever, chills, sweats, chest pain, chest pressure, difficulty breathing, uncontrolled nausea/vomiting, rash, wheezing, passing out or nearly passing out, bleeding, black/bloody bowel movements, or other new or concerning symptoms please call your primary care physician, or call 911 for re-evaluation in the emergency department if you are very concerned. Pending Studies at Discharge: No Stand-Alone Forms: [facility], Smoking Cessation Medications and DC Order Prescriptions: New cefdinir 300 mg capsule 300 mg PO BID Qty: 3 RF: 0 metronidazole 500 mg tablet 500 mg PO TID Qty: 4 RF: 0 vancomycin 125 mg capsule 125 mg PO QID 7 Days Qty: 28 RF: 0 Continued doxycycline hyclate 100 mg tablet 100 mg PO BID Qty: 20 RF: 0 pregabalin [Lyrica] 50 mg capsule 50 mg PO TID RF: 0 (DME) lancets [OneTouch UltraSoft Lancets] Misc See Rx Instructions .ROUTE .MEDSUPPLY Qty: 100 RF: 0 albuterol sulfate [Proventil HFA] 90 mcg/actuation HFA aerosol inhaler 1 puff inhalation QID PRN (Reason: Shortness Of Breath) RF: 0 metoprolol succinate [Toprol XL] 50 mg tablet extended release 24 hr 50 mg PO QAM RF: 0 Basaglar KwikPen U-100 Insulin 100 unit/mL (3 mL) insulin pen 15 unit SUBCUT HS Qty: 1 RF: 0 insulin lispro [Humalog KwikPen Insulin] 100 unit/mL insulin pen 3 unit SUBCUT TIDM Qty: 1 RF: 0 ropinirole 2 mg Tablet 4 mg PO HS RF: 0 nortriptyline [Pamelor] 50 mg Capsule 100 mg PO HS RF: 0 cyclobenzaprine 10 mg tablet 10 mg PO BID RF: 0 lisinopril 10 mg Tablet 10 mg PO QAM Qty: 30 RF: 0 aspirin [Melissa Low Dose Aspirin] 81 mg Tablet,Delayed Release (Dr/Ec) 81 mg PO BID Qty: 60 RF: 0 lorazepam [Ativan] 1 mg tablet 1 mg PO TID PRN (Reason: Anxiety) RF: 0 metformin 500 mg tablet extended release 24 hr 1,000 mg PO DAILY RF: 0 famotidine 20 mg Tablet 20 mg PO BID Qty: 60 RF: 0 metoclopramide HCl 5 mg Tablet 5 mg PO AC Qty: 90 RF: 0 oxycodone [OxyContin] 10 mg Tablet,Oral Only,Ext.Rel.12 Hr 10 mg PO BID Qty: 6 RF: 0 oxycodone-acetaminophen [Percocet] 5-325 mg Tablet 2 tab PO Q4H PRN (Reason: moderate to severe breakthrough pain) Qty: 30 RF: 0 zolpidem 12.5 mg tablet,ext release multiphase 12.5 mg PO HS PRN (Reason: insomnia) Qty: 0 RF: 0 linezolid 600 mg tablet 600 mg PO BID Qty: 9 RF: 0 Discharge Orders: Discharge Order (Routine); Ordered 01/19/22 Ordered By: Sajan Allan Admission Data Admit Date/Time: 01/11/22 18:09 Attending Provider: Sajan Allan Admit Provider: Mandie Velasco Primary Care Provider: Vince Vernon Other Providers: Jon Whaley ; [facility] Coding Diagnoses Sepsis A41.9 Sepsis acute organ dysfunction status: unspecified Sepsis type: sepsis due to unspecified organism Emphysema lung J43.9 Hyperglycemia due to type 2 diabetes mellitus E11.65; Z79.4 Diabetes mellitus fci insulin use: with fci use History of right below knee amputation Z89.511 Opioid dependence F11.20 Anxiety F41.9 Iron deficiency anemia D50.9 Depression F32.9 HTN (hypertension) I10 Hyponatremia E87.1
[2022-01-19] MEDS: ONDANSETRON INJ 2 MG/ML 2 ML VIAL IV PRN ×2 (07:54→16:46)
[2022-01-19] MEDS: METOPROLOL SUCC 25MG EXT REL TAB PO SCH (10:03)
[2022-01-19] MEDS: FAMOTIDINE 20 MG TAB PO SCH ×2 (10:03→20:52)
[2022-01-19] MEDS: CEFDINIR 300 MG CAP PO SCH (10:04)
[2022-01-19] MEDS: ASPIRIN 81 MG ECTAB PO SCH ×2 (10:04→20:56)
[2022-01-19] MEDS: CYCLOBENZAPRINE HCL 10 MG TAB PO SCH ×2 (10:04→20:52)
[2022-01-19] MEDS: ACETAMINOPHEN 500 MG TAB PO SCH ×3 (10:05→20:51)
[2022-01-19] MEDS: INSULIN ASPART PER UNIT SC SCH ×4 (10:12→20:57)
[2022-01-19] MEDS: PREGABALIN 100 MG CAP PO SCH ×2 (10:19→20:50)
[2022-01-19] MEDS ORDERED: SODIUM CHLORIDE 0.9% 1000ML 1,000 ML IV SCH (10:30)
--- NOTE | 2022-01-19 10:30 | Hospitalist Progress Note ---
Date of Service January 19, 2022 Assessment & Plan (1) Sepsis: Plan: 56yo F PMH R BKA 12/22, hx. MRSA, DM2 with neuropathy, opioid dependence, anxiety/depression, HTN, PAD/CAD, HLD, gastroparesis here for SOB vomitting with diarrhea suspicion for sepsis. Was treated clinically for C. difficile, additional antibiotic coverage for infectious colitis given CT findings below. Sepsis 2/2 suspected CHF versus infectious colitis C. difficile gene positive, stool toxin negative. Clinically ill with severe liquid diarrhea, multiple bowel movements CTab/pelvis: Short segment of nonspecific colitis involving left colon with wall thickening and edema extending from the splenic flexure to mid descending colon with mucosal hyperemia. Antibiotics initiated based on this with additional p.o. vancomycin for C. difficile coverage Blood cultures no growth to date UC multiple organisms, consistent with contaminant. No urinary symptoms First episode. Will treat with vancomycin 125 mg 4 times daily 10-day course, extended to cover for least 5 days post last dose of antibiotics below Given above CT findings and clinical illness with concern for sepsis we will treat for 5 days with C. difficile treatment extended at least 5 days past last antibiotic. After narrowing from cefepime patient did clinically worsen with fever and chills, switched to ciprofloxacin with Flagyl. In addition repeat COVID ordered, blood cultures ordered. (2) Emphysema lung: Plan: emphysema seen on CT chest, shortness of breath is from this and sepsis, supportive care and oxygen supplementation (3) Hyperglycemia due to type 2 diabetes mellitus: Plan: remains on basal bolus ssi at this time BMP, CBC pending for morning (4) History of right below knee amputation: Plan: inital wound looks good and not source of infection, continue pain control continue home Lyrica, ropinirole, cyclobenzaprine x ray knee without fracture, pain from fall and phantom pain have required amendment of pain regime on 01/17/22 Outpatient fentanyl patch is awaiting prior auth and pcp did not complete will have faxed to us (5) Opioid dependence: (6) Anxiety: (7) Iron deficiency anemia: (8) Depression: (9) HTN (hypertension): Plan: Some protein initially held for soft blood pressures, resumed on discharge and patient was normotensive (10) Hyponatremia: Plan: Has improved with fluid restrict Plan: Code Status: Full DVT PPX: lovenox 30mg SQ daily Admission and Anticipated Discharge Date Admission Date: January 11, 2022 Subjective Diarrhea improving, last bowel movement yesterday but patient feels clinically worse today. [place] feverish with some chills. No cough, or oxygen requirement but feels a little winded moving around. Endorses slight nausea without vomiting. Denies chest pain/chest pressure, difficulty breathing/syncope/presyncope. Review of Systems Review of Systems: All systems reviewed & are unremarkable except as noted in Subjective Physical Exam Physical Exam: General: A&Ox3. NAD. Cooperative. HEENT: Atraumatic, normocephalic. Vision and hearing grossly intact. Pulm: CTAB A&P. -wheezes, -rales, -rhonchi. Symmetrical chest rise. No increase in work of breathing. No respiratory distress. Cardiac: RRR, -mrg. Radial pulses intact and symmetrical. Abdominal: Mildly tender, nondistended, soft. BS present. Extremities: Right BKA with wound C/D/I. No erythema. No dehiscence Results & Data Results & Data ([facility]) Vital Signs (Past 12 Hours) Vital Signs Temp Pulse Resp BP Pulse Ox 01/19/22 08:03 38 C H 107 H 20 186/83 H 97 01/19/22 05:31 90 134/90 01/19/22 04:35 37 C 90 20 159/82 H 95 01/19/22 01:30 84 135/76 01/18/22 23:13 36.9 C 78 20 155/77 H 97 PG Care Time/CCT Total # of Minutes Spent Total Time Spent with Patient: Total time spent is greater than 50% in coordination of care (as documented) at patient's floor/unit and/or counseling patient: Coding Level of Care Code 49239 Subseq Hosp Care Lvl 2 Diagnoses Sepsis A41.9 Sepsis acute organ dysfunction status: unspecified Sepsis type: sepsis due to unspecified organism Emphysema lung J43.9 Hyperglycemia due to type 2 diabetes mellitus E11.65; Z79.4 Diabetes mellitus fpc insulin use: with fpc use History of right below knee amputation Z89.511 Opioid dependence F11.20 Anxiety F41.9 Iron deficiency anemia D50.9 Depression F32.9 HTN (hypertension) I10 Hyponatremia E87.1 (1) Hyperglycemia due to type 2 diabetes mellitus Diabetes mellitus fpc insulin use: with predatory animal exterminator use Qualified Code(s): E11.65 - Type 2 diabetes mellitus with hyperglycemia; Z79.4 - half-way (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 (2) Sepsis Sepsis acute organ dysfunction status: unspecified Sepsis type: sepsis due to unspecified organism Qualified Code(s): A41.9 - Sepsis, unspecified organism
[2022-01-19] MEDS: CIPROFLOXACIN / D5W 400 MG/200 ML BAG IV SCH ×2 (11:51→22:14)
[2022-01-19 13:13] LABS: Influenza A virus by PCR Negative (Neg); Influenza B virus by PCR Negative (Neg); RSV by PCR Negative (Neg); SARS CoV2 RNA(COVID-19) InHosp NEGATIVE (Negative)
[2022-01-19] MEDS: ZOLPIDEM TARTRATE 10 MG TAB PO PRN (20:50)
[2022-01-19] MEDS: NORTRIPTYLINE HCL 25 MG CAP PO SCH (20:51)
[2022-01-19] MEDS: ENOXAPARIN INJ 30 MG/0.3 ML SYR SQ SCH (20:51)
[2022-01-19] MEDS: INSULIN GLARGINE SOLOSTAR 100 UNITS/ML 3 ML PEN SC SCH (20:54)
[2022-01-20] MEDS: metroNIDAZOLE 500 MG/100 ML BAG IV SCH ×2 (01:03→09:17)
[2022-01-20] MEDS: oxyCODONE HCL IR 5 MG TAB (IMMEDIATE RELEASE) PO PRN ×2 (01:10→08:03)
[2022-01-20] MEDS: RASPBERRY SYRUP 5 ML UDP PO SCH ×2 (05:12→12:20)
[2022-01-20] MEDS: HYDROmorphone INJ 0.5 MG/0.5 ML SYR IV PRN ×2 (05:13→09:16)
[2022-01-20] MEDS: VANCOMYCIN HCL 125 MG/2.5ML SOLN PO SCH ×2 (05:13→12:20)
[2022-01-20] MEDS: KETOROLAC 30 MG/ML VIAL IV PRN ×2 (06:16→12:20)
[2022-01-20] MEDS: ACETAMINOPHEN 500 MG TAB PO SCH (08:04)
[2022-01-20] MEDS: FAMOTIDINE 20 MG TAB PO SCH (08:04)
[2022-01-20] MEDS: METOPROLOL SUCC 25MG EXT REL TAB PO SCH (08:05)
[2022-01-20] MEDS: METOCLOPRAMIDE HCL 5 MG TABLET PO SCH ×2 (08:05→12:12)
[2022-01-20] MEDS: CYCLOBENZAPRINE HCL 10 MG TAB PO SCH (08:07)
[2022-01-20] MEDS: ASPIRIN 81 MG ECTAB PO SCH (08:07)
[2022-01-20] MEDS: PREGABALIN 100 MG CAP PO SCH (08:10)
[2022-01-20] MEDS: INSULIN ASPART PER UNIT SC SCH ×2 (08:12→12:12)
[2022-01-20 08:47] LABS: Hematocrit (blood only) 29.6 % (37-47); Hemoglobin 9.4 g/dL (12.0-16.0); Mean Corpuscular Hemoglobin 24.7 pg (25-34); Mean Corpuscular Hgb Conc 31.8 g/dL (32-36); Mean Corpuscular Volume 77.7 fL (80-100); Mean Platelet Volume 9.5 fL (7.4-10.4); Platelet Count 333 K/uL (130-400); RDW Coefficient of Variation 16.4 % (11.5-14.5); RDW Standard Deviation 46.6 fL (36.4-46.3); Red Blood Count 3.81 M/uL (4.2-5.4); White Blood Count 14.46 K/uL (4.8-10.8)
[2022-01-20 09:08] LABS: ALC (manual) 1.14 K/uL (1.2-3.4); ANC (manual) 11.67 K/uL (1.4-6.5); Eosinophils # (manual) 0.64 K/uL (0-0.5); Eosinophils % (manual) 4.4 %; Lymphocytes # (manual) 1.14 K/uL (1.2-3.4); Lymphocytes % (manual) 7.9 %; Monocytes # (manual) 1.01 K/uL (0.11-0.59); Neutrophils # (manual) 11.67 K/uL (1.4-6.5); Neutrophils % (manual) 80.7 %; RBC Morphology Unremarkable
[2022-01-20 09:10] LABS: BUN Creatinine Ratio 22.2 (10-20); Calcium 8.7 mg/dl (8.5-10.1); Creatinine Clr Calc Pharmacy 125.4 ml/min; Est GFR (African American) 128.9 ml/min; Est GFR (Non-African American) 111.2 ml/min; Potassium 4.1 mmol/L (3.5-5.1)
[2022-01-20] MEDS: ONDANSETRON INJ 2 MG/ML 2 ML VIAL IV PRN (09:37)
[2022-01-20] MEDS: CIPROFLOXACIN / D5W 400 MG/200 ML BAG IV SCH (10:47)
--- NOTE | 2022-01-20 11:29 | Discharge Summary ---
Date of Service January 20, 2022 Principal Diagnosis Colitis, C. difficile positive Discharge Exam General: A&Ox3. NAD. Cooperative. HEENT: Atraumatic, normocephalic. Vision and hearing grossly intact. Pulm: CTAB A&P. -wheezes, -rales, -rhonchi. Symmetrical chest rise. No increase in work of breathing. No respiratory distress. Cardiac: RRR, -mrg. Radial pulses intact and symmetrical. Abdominal: Mildly tender, nondistended, soft. BS present. Extremities: Right BKA with wound C/D/I. No erythema. No dehiscence Discharge Data Allergies Allergy/AdvReac Type Severity Reaction Status Date / Time morphine Allergy Severe blisters Verified 01/11/22 15:40 in mouth Sulfa (Sulfonamide Allergy Severe rash/swelli Verified 01/11/22 15:40 Antibiotics) ng iron [From Venofer] Allergy Intermediate Hypertensio Verified 01/11/22 15:40 n vancomycin Allergy Intermediate YULIAY Verified 01/11/22 15:40 SYNDROME---CAN TAKE IF VERY SLOW DRIP. amoxicillin [From Augmentin] Allergy Mild itching/power Verified 01/11/22 15:40 h clavulanic acid Allergy Mild itching/power Verified 01/11/22 15:40 [From Augmentin] h Consultations 01/11/22 17:01 ED Decision to Admit Stat 01/18/22 17:50 Consult Behavioral Health Liaison Routine Ordered Studies 01/11/22 14:16 CT angio chest PE protocol Stat 01/11/22 15:04 CT abd pelvis IV con only Stat 01/15/22 11:11 CT abd pelvis oral and IV con Routine Hospital Course (1) Sepsis: 56yo F PMH R BKA 12/22, hx. MRSA, DM2 with neuropathy, opioid dependence, anxiety/depression, HTN, PAD/CAD, HLD, gastroparesis here for SOB vomitting with diarrhea suspicion for sepsis. Was treated clinically for C. difficile, additional antibiotic coverage for infectious colitis given CT findings below. To do as outpatient: 1. Complete 3 more doses of ciprofloxacin twice daily 2. Complete course of oral vancomycin 125 mg 4 times daily for C. difficile extended to cover 5 days past her last dose of ciprofloxacin 3. Repeat blood work in 1 week 4. Follow-up to PCP Sepsis 2/2 suspected CHF versus infectious colitis C. difficile gene positive, stool toxin negative. Clinically ill with severe liquid diarrhea, multiple bowel movements CTab/pelvis: Short segment of nonspecific colitis involving left colon with wall thickening and edema extending from the splenic flexure to mid descending c olon with mucosal hyperemia. Antibiotics initiated based on this with additional p.o. vancomycin for C. difficile coverage Blood cultures no growth to date UC multiple organisms, consistent with contaminant. No urinary symptoms First episode. Will treat with vancomycin 125 mg 4 times daily 10-day course, extended to cover for least 5 days post last dose of antibiotics below Given above CT findings and clinical illness with concern for sepsis we will treat for 5 days with C. difficile treatment extended at least 5 days past last antibiotic. After narrowing from cefepime patient did clinically worsen with fever and chills, switched to ciprofloxacin. Did clinically improve, no further fevers, and felt at her normal state of health at time of discharge (2) Emphysema lung: emphysema seen on CT chest, shortness of breath is from this and sepsis, supportive care and oxygen supplementation (3) Hyperglycemia due to type 2 diabetes mellitus: remains on basal bolus ssi at this time BMP, CBC pending for morning (4) History of right below knee amputation: inital wound looks good and not source of infection, continue pain control continue home Lyrica, ropinirole, cyclobenzaprine x ray knee without fracture, pain from fall and phantom pain have required amendment of pain regime on 01/17/22 Outpatient fentanyl patch is awaiting prior auth and pcp did not complete will have faxed to us (5) Opioid dependence: (6) Anxiety: (7) Iron deficiency anemia: (8) Depression: (9) HTN (hypertension): Some protein initially held for soft blood pressures, resumed on discharge and patient was normotensive (10) Hyponatremia: Has improved with fluid restrict Code Status: Full DVT PPX: lovenox 30mg SQ daily Total Time Total Time Spent Total Time Spent (In Minutes): Time spend day of discharge 31 minutes including direct patient care, documentation, review of labs and images, and coordination of care. Discharge Plan Discharge Items Patient Disposition: Home - Home Health Services Reason For Visit: SEPSIS Discharge Diagnosis: Sepsis 2/2 Colitis Activity: Resume your previous activity Non-emergency contact: Primary Care Provider Call non-emergency contact if: you have any medication questions, your symptoms worsen and you have a fever Follow-up/Referrals: [facility] [Outside] - 02/21/22 11:30 am (Therapy appointment) Vince Vernon DO [Primary Care Provider] - 01/25/22 2:40 pm Diet: Carb Consistent or DM2 Addtl Attending Provider Instructions: You are seen in the hospital for sepsis/infection. Your CT scan showed evidence of inflammation in the colon (colitis). Your testing for C. difficile, a type of infection, was positive although your toxin testing was negative. This bacteria typically produces a toxin which makes people ill, however due to your clinical illness and symptoms with positive PCR test it was suspected that this was real and you are treated with antibiotics and were slowly clinically improving. Due to your CT findings you are also started on a course of general antibiotics with cefepime/Flagyl which was converted to cefdinir and Flagyl on discharge as noted below. Please continue to take vancomycin by mouth 125 mg approximately every 6 hours until 01/26/2022 to complete a full course of treatment. Due to CT findings you were also treated with additional antibiotics for infectious colitis. Please take ciprofloxacin 500 mg mg by mouth in the morning and evening until the evening of 01/21. You completed a course of flagyl by time of discharge, no additional doses were prescribed on discharge Your right knee amputation wound appeared well and did not show signs of infection during admission. Follow-up appointment is being scheduled for you with your primary care physician. You should be seen for reevaluation within 1 week. You should have a CBC and BMP (blood work) to follow your condition within 1 week ordered by your PCP. If you develop any new or worsening symptoms including fever, chills, sweats, chest pain, chest pressure, difficulty breathing, uncontrolled nausea/vomiting, rash, wheezing, passing out or nearly passing out, bleeding, black/bloody bowel movements, or other new or concerning symptoms please call your primary care physician, or call 911 for re-evaluation in the emergency department if you are very concerned. Pending Studies at Discharge: No Stand-Alone Forms: My Bap[employer], Smoking Cessation Medications and DC Order Prescriptions: New vancomycin 125 mg capsule 125 mg PO QID 7 Days Qty: 28 RF: 0 ciprofloxacin HCl 500 mg tablet 500 mg PO BID Qty: 3 RF: 0 Continued pregabalin [Lyrica] 50 mg capsule 50 mg PO TID RF: 0 (DME) lancets [OneTouch UltraSoft Lancets] Misc See Rx Instructions .ROUTE .MEDSUPPLY Qty: 100 RF: 0 albuterol sulfate [Proventil HFA] 90 mcg/actuation HFA aerosol inhaler 1 puff inhalation QID PRN (Reason: Shortness Of Breath) RF: 0 metoprolol succinate [Toprol XL] 50 mg tablet extended release 24 hr 50 mg PO QAM RF: 0 Basaglar KwikPen U-100 Insulin 100 unit/mL (3 mL) insulin pen 15 unit SUBCUT HS Qty: 1 RF: 0 insulin lispro [Humalog KwikPen Insulin] 100 unit/mL insulin pen 3 unit SUBCUT TIDM Qty: 1 RF: 0 ropinirole 2 mg Tablet 4 mg PO HS RF: 0 nortriptyline [Pamelor] 50 mg Capsule 100 mg PO HS RF: 0 cyclobenzaprine 10 mg tablet 10 mg PO BID RF: 0 lisinopril 10 mg Tablet 10 mg PO QAM Qty: 30 RF: 0 aspirin [Melissa Low Dose Aspirin] 81 mg Tablet,Delayed Release (Dr/Ec) 81 mg PO BID Qty: 60 RF: 0 lorazepam [Ativan] 1 mg tablet 1 mg PO TID PRN (Reason: Anxiety) RF: 0 metformin 500 mg tablet extended release 24 hr 1,000 mg PO DAILY RF: 0 famotidine 20 mg Tablet 20 mg PO BID Qty: 60 RF: 0 metoclopramide HCl 5 mg Tablet 5 mg PO AC Qty: 90 RF: 0 oxycodone [OxyContin] 10 mg Tablet,Oral Only,Ext.Rel.12 Hr 10 mg PO BID Qty: 6 RF: 0 oxycodone-acetaminophen [Percocet] 5-325 mg Tablet 2 tab PO Q4H PRN (Reason: moderate to severe breakthrough pain) Qty: 30 RF: 0 zolpidem 12.5 mg tablet,ext release multiphase 12.5 mg PO HS PRN (Reason: insomnia) Qty: 0 RF: 0 Discontinued doxycycline hyclate 100 mg tablet 100 mg PO BID Qty: 20 RF: 0 linezolid 600 mg tablet 600 mg PO BID Qty: 9 RF: 0 Discharge Orders: Discharge Order (Routine); Ordered 01/20/22 Ordered By: Sajan Allan Admission Data Admit Date/Time: 01/11/22 18:09 Attending Provider: Sajan Allan Admit Provider: Mandie Velasco Primary Care Provider: Vince Vernon Other Providers: Jon Whaley ; [facility] Coding Level of Care Code D/C DAY MANAGEMENT >30 MINS Diagnoses Sepsis A41.9 Sepsis acute organ dysfunction status: unspecified Sepsis type: sepsis due to unspecified organism Emphysema lung J43.9 Hyperglycemia due to type 2 diabetes mellitus E11.65; Z79.4 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: with custodial use History of right below knee amputation Z89.511 Opioid dependence F11.20 Anxiety F41.9 Iron deficiency anemia D50.9 Depression F32.9 HTN (hypertension) I10 Hyponatremia E87.1
== END 2022-01-20 13:15 | disposition home health service (06) | DRG 872 ==
LOC: ED 13:56 → SUATTDRO 18:09 → EDINP 18:09 → 2W 20:08

== ENCOUNTER 2022-03-08 14:06 | Inpatient (IN) ==
--- NOTE | 2022-03-08 15:07 | XRay Report ---
XR foot LT min 3V routine CLINICAL HISTORY: wound, infection on left foot. COMPARISON STUDY: No previous studies for comparison. TECHNIQUE: 3 left foot views FINDINGS: Bones: There is no evidence for an acute fracture or dislocation. There is no lytic or blastic lesion . Joints: The joint spaces are maintained. The bones are in anatomic alignment. Soft tissues: There is no focal soft tissue abnormality. There is no radiopaque foreign body. IMPRESSION: 1. No acute osseous pathology. ACT 112: Negative or not required by law. Electronically signed by: Jaylon Connell M.D. 03/08/2022 3:06 PM
[2022-03-08] MEDS ORDERED: cefTRIAXone SODIUM 2,000 MG/70 ML BAG IV STA (16:07)
--- NOTE | 2022-03-08 16:07 | Emergency Department Note ---
Impression & Plan Cellulitis, Diabetic foot ulcer, Acute leg pain ED Provider Note NAME: EILEEN ESCOBAR AGE: 56 SEX: F : 1965 ARRIVES VIA: Walk-In INFORMANT: Patient ED PROVIDER(S): Jon Adan DO CHIEF COMPLAINT: Left foot pain HPI: Patient is a 56-year-old female who presents the ER for left foot pain. She has a past medical history of opiate dependence, cellulitis, emphysema, diabetic foot wounds, amputation in the right leg, osteomyelitis, MRSA, who presents to the ER for left lower extremity pain. She had her right leg amputation performed on the of this month by Dr. Marina. She saw her PCP as well as his PCP and they both referred her in for admission and IV antibiotics today due to worsening infection of her right foot. She denies any fevers. Admits to pain about an 8 out of 10 its constant. Is worse with walking. She has ulcers at the base of her foot no well as an ascending cellulitis on the dorsal aspect including her second and third toes tracking to her distal anterior barbosa. ROS: See above HPI for pertinent positives & negatives. A total of 10 systems reviewed and were otherwise negative. PAST MEDICAL HISTORY:See Below PAST SURGICAL HISTORY:See Below FAMILY HISTORY:See Below SOCIAL HISTORY:See Below HOME MEDICATIONS:See Below ALLERGIES:See Below VITALS:See Below PHYSICAL EXAMINATION: GENERAL: Sitting up in bed, alert, well appearing, well nourished, no distress, non-toxic EYE EXAM: normal conjunctiva. OROPHARYNX: no exudate, no erythema, lips, buccal mucosa, and tongue normal and mucous membranes are moist NECK: supple, no nuchal rigidity, no adenopathy, non-tender LUNGS: Clear to auscultation. Normal chest wall mechanics HEART: no murmurs, S1 normal and S2 normal ABDOMEN: abdomen soft, non-tender, normo-active bowel sounds, no masses, no rebound or guarding. UPPER EXTREMITIES: upper extremities are grossly normal. LOWER EXTREMITIES: Right lower extremity with BKA. Wound is clean dry and intact. Left lower extremity with ulcers/wounds at the base of the second and third toes with erythema surrounding the second and third toes tracking proximally over the dorsal surface of the foot up the proximal anterior barbosa NEURO EXAM: Normal sensorium, cranial nerves II-XII grossly intact, normal speech, no gross weakness of arms, no gross weakness of legs. MEDICAL DECISION MAKING: Patient is a 56-year-old female who presents ER for the boasting complaint. IV was established blood work was obtained. Labs show leukocytosis of 13,000. No significant anemia. INR was unremarkable. BMP with LFTs bilirubin was unremarkable. X-ray of the foot was unremarkable. Patient was given IV fluids and IV antibiotics. Patient was given Rocephin and vancomycin. Updated bedside. Discussed with hospitalist for further evaluation as she was referred in by her surgeon for admission. Triage Nursing notes reviewed. Limited review of prior medical records performed Vital Signs: reviewed and remarkable for hypertensive, tachycardic Differential diagnosis: Cellulitis, abscess, MRSA infection, DVT, necrotizing fasciitis, dermatitis, drug eruption, allergic reaction, as well as other pathologies. ER treatment provided: See below Diagnostics interpreted by me: ECG: none Cardiac Monitoring: An order was placed for continuous cardiac monitoring. The monitor shows a rate of 110 with sinus rhythm. Laboratory studies: As stated above and show below. Imaging studies: See below Consultation(s): Discussed with the hospitalist for further evaluation Dr. Alexander Leonard Procedures: none Critical Care: None Past Med/Surg History Medical History Acidosis, lactic Acute dehydration 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 No issues per anesthesia postop progress note. Anemia Cellulitis Chronic back pain Depression Diabetic peripheral neuropathy DM2 (diabetes mellitus, type 2) IDDM, A1c 07/2021-11% Gastritis Gastroenteritis GIB (gastrointestinal bleeding) History of amputation of great toe Hyperlipidemia Insulin dependent diabetes mellitus Iron deficiency anemia Nonobstructive atherosclerosis of coronary artery Numbness of lower extremity Peripheral neuropathy Right second toe ulcer Seizures Sepsis Surgical History History of cardiac cath done at [facility]; 09/22/19; LM - mild luminal irregularities. LAD - mid 20-30%, distal with myocardial bridge & 30% stenosis. L Cx - mild luminal irregularities. RCA - proximal <30% stenosis; mid/distal vessel mild plaques. PDA - mild luminal irregularities. History of esophagogastroduodenoscopy (EGD) History of right below knee amputation (12/22/21) Right Below Knee Amputation(Right) - Davon Good MD, FACS Family History Mother , age 63 Myocardial infarction Father , age 68 or 69 Myocardial infarction Brother S/P CABG (coronary artery bypass graft) Sister Myocardial infarction x 3; she is 57yo Social History Smoking Status: Current every day smoker Tobacco Type: Cigarettes packs per day: 0.5; Years Smoked: 20; Cigarettes Per Day: 20; Second Hand Exposure: No; Hx Alcohol Use: No Hx Substance Use: Yes Prescribed Medications: Marijuana Last Used Substance: Days (ago) Last Used Substance Other:: 2 days ago Substance Use Type Other:: medical marijuana Preferred Language: Telugu Communication Ability: Effective Visual Impairment: No Limitations Hearing Ability: Normal Sewing Teacher Required: No Beliefs That Will Affect Care: None marital status: Current Living Situation: Spouse current occupational status: unemployed 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 other: raising a grandchild as well; lives in [facility] Safe at Home: Yes during the past year weight has: remained stable Assistive Devices: Walker and Wheelchair Allergies Allergies Allergy/AdvReac Type Severity Reaction Status Date / Time morphine Allergy Severe blisters Verified 03/08/22 16:16 in mouth Sulfa (Sulfonamide Allergy Severe rash/swelli Verified 03/08/22 16:16 Antibiotics) ng iron [From Venofer] Allergy Intermediate Hypertensio Verified 03/08/22 16:16 n vancomycin Allergy Intermediate YULIYA Verified 03/08/22 16:16 SYNDROME---CAN TAKE IF VERY SLOW DRIP. amoxicillin [From Augmentin] Allergy Mild itching/power Verified 03/08/22 16:16 h clavulanic acid Allergy Mild itching/power Verified 03/08/22 16:16 [From Augmentin] h Home Meds Home Medications Medication Instructions Recorded Confirmed nortriptyline 50 mg capsule 100 mg PO HS 10/19/20 03/08/22 (Pamelor) ropinirole 2 mg tablet 4 mg PO HS 10/19/20 03/08/22 lancets (OneTouch UltraSoft #100 ea 11/12/20 03/08/22 Lancets) metoprolol succinate 50 mg 50 mg PO QAM 03/05/21 03/08/22 tablet,extended release 24 hr (Toprol XL) lorazepam 1 mg tablet (Ativan) 1 mg PO TID PRN Anxiety 11/04/21 03/08/22 cyclobenzaprine 10 mg tablet 10 mg PO BID 11/24/21 03/08/22 insulin glargine 100 unit/mL (3 40 unit subcut HS 03/08/22 03/08/22 mL) subcutaneous pen (Lantus Solostar U-100 Insulin) insulin lispro 100 unit/mL 7 unit subcut TIDM 03/08/22 03/08/22 subcutaneous pen ondansetron 8 mg disintegrating 8 mg translingual TID PRN Nausea 03/08/22 03/08/22 tablet pregabalin 75 mg capsule 75 mg PO TID 03/08/22 03/08/22 zolpidem 10 mg tablet 10 mg PO HS PRN Sleep 03/08/22 03/08/22 Previous Rx's Medication Instructions Recorded aspirin 81 mg tablet,delayed 81 mg PO BID #60 tabs 10/04/21 release (Melissa Low Dose Aspirin) metoclopramide HCl 5 mg tablet 5 mg PO AC #90 tabs 12/26/21 oxycodone-acetaminophen 5 mg-325 2 tab PO Q4H PRN moderate to 12/26/21 mg tablet (Percocet) severe breakthrough pain #30 tabs Results & Data (ED) Vital Signs Vital Signs - 24 hr 03/08/22 14:21 03/08/22 16:07 03/08/22 16:07 Temperature 36.4 C L Temperature Source Temporal Artery Scan Pulse Rate 110 H 97 H Pulse Rate [Apical] 97 H Pulse Rhythm Regular Regular Pulse Rhythm [Apical] Regular Pulse Strength Normal Respiratory Rate 20 16 18 Respiratory Effort / Characteristics Non-Labored Spontaneous Non-Labored Respiratory Depth Normal Normal Respiratory Pattern Regular Regular Blood Pressure 166/100 H Blood Pressure [Left Arm] 205/96 H Blood Pressure Mean 122 Blood Pressure Mean [Left Arm] 132 Blood Pressure Position Sitting Blood Pressure Position [Left Arm] Lying Pulse Oximetry 96 97 96 Oxygen Delivery Method Room Air Room Air Room Air Sepsis Recent Fever Within 48 Hours No Sepsis New/Unexplained Change in Mental Status N/A Sepsis Action Taken by Nursing No Action Required Laboratory Data Result diagrams: 03/08/22 15:45 03/08/22 15:45 Lab Results 03/08/22 03/08/22 03/08/22 Range/Units 15:45 15:45 15:45 WBC 13.52 H (4.8-10.8) K/ul RBC 5.63 H (3.93-5.22) M/uL Hgb 12.8 (12.0-16.0) g/dl Hct 42.2 (34.1-44.9) % MCV 75.0 L (80.0-100.0) fL MCH 22.7 L (25.0-34.0) pg MCHC 30.3 L (32.0-36.0) g/dL RDW Std Deviation 41.2 (36.4-46.3) fL RDW Coeff of Maria Del Carmen 15.3 H (11.5-14.5) % Plt Count 388 (130-400) K/uL MPV 10.1 (9.4-12.3) fL Immature Gran % (Auto) 0.5 % Neut % (Auto) 67.8 % Lymph % (Auto) 22.5 % [place] % (Auto) 6.5 % Eos % (Auto) 2.3 % Baso % (Auto) 0.4 % Neut # (Auto) 9.16 H (1.4-6.5) K/uL Lymph # (Auto) 3.04 (1.2-3.4) K/uL [place] # (Auto) 0.88 H (0.24-0.82) K/uL Eos # (Auto) 0.31 (0-0.50) K/uL Baso # (Auto) 0.06 (0-0.2) K/uL Immature Gran # (Auto) 0.07 H (0.00-0.02) K/uL ESR (0-30) mm/hr PT 10.0 (9.0-12.0) Seconds INR 0.9 (0.9-1.1) APTT 21.7 (21.0-31.0) Seconds PTT Ratio 0.8 Sodium 136 (136-145) mmol/L Potassium 4.2 (3.5-5.1) mmol/L Chloride 98 (98-107) mmol/L Carbon Dioxide 28 (21-32) mmol/L Anion Gap 10 (3-11) BUN 10 (6-23) mg/dl Creatinine 0.45 L (0.6-1.2) mg/dl Est Cr Clr Drug Dosing Not Reportable Est GFR ( Amer) 128.9 ml/min Est GFR (Non-Af Amer) 111.2 ml/min BUN/Creatinine Ratio 22.2 H (10-20) Glucose 199 H (70-99(Fasting)) mg/dl Calcium 10.1 (8.5-10.1) mg/dl Magnesium 1.8 (1.7-2.4) mg/dl Total Bilirubin 0.4 (0.2-1.0) mg/dl AST 13 (13-39) U/L ALT 12 (7-52) U/L Alkaline Phosphatase 139 H (34-104) U/L C-Reactive Protein (0-0.5) mg/dl Total Protein 8.2 (6.0-8.3) gm/dl Albumin 4.7 (3.4-5.0) gm/dl Globulin 3.5 (2.5-4.0) gm/dl Albumin/Globulin Ratio 1.3 (0.9-2) 03/08/22 03/08/22 Range/Units 15:45 15:45 WBC (4.8-10.8) K/ul RBC (3.93-5.22) M/uL Hgb (12.0-16.0) g/dl Hct (34.1-44.9) % MCV (80.0-100.0) fL MCH (25.0-34.0) pg MCHC (32.0-36.0) g/dL RDW Std Deviation (36.4-46.3) fL RDW Coeff of Maria Del Carmen (11.5-14.5) % Plt Count (130-400) K/uL MPV (9.4-12.3) fL Immature Gran % (Auto) % Neut % (Auto) % Lymph % (Auto) % [place] % (Auto) % Eos % (Auto) % Baso % (Auto) % Neut # (Auto) (1.4-6.5) K/uL Lymph # (Auto) (1.2-3.4) K/uL [place] # (Auto) (0.24-0.82) K/uL Eos # (Auto) (0-0.50) K/uL Baso # (Auto) (0-0.2) K/uL Immature Gran # (Auto) (0.00-0.02) K/uL ESR 62 H (0-30) mm/hr PT (9.0-12.0) Seconds INR (0.9-1.1) APTT (21.0-31.0) Seconds PTT Ratio Sodium (136-145) mmol/L Potassium (3.5-5.1) mmol/L Chloride (98-107) mmol/L Carbon Dioxide (21-32) mmol/L Anion Gap (3-11) BUN (6-23) mg/dl Creatinine (0.6-1.2) mg/dl Est Cr Clr Drug Dosing Est GFR ( Amer) ml/min Est GFR (Non-Af Amer) ml/min BUN/Creatinine Ratio (10-20) Glucose (70-99(Fasting)) mg/dl Calcium (8.5-10.1) mg/dl Magnesium (1.7-2.4) mg/dl Total Bilirubin (0.2-1.0) mg/dl AST (13-39) U/L ALT (7-52) U/L Alkaline Phosphatase (34-104) U/L C-Reactive Protein 1.53 H (0-0.5) mg/dl Total Protein (6.0-8.3) gm/dl Albumin (3.4-5.0) gm/dl Globulin (2.5-4.0) gm/dl Albumin/Globulin Ratio (0.9-2) Administered Medications Discontinued Medications Hydromorphone HCl (Hydromorphone Inj 0.5 Mg/0.5 Ml Syr) 0.5 mg IV NOW STA Stop: 03/08/22 16:35 Last Admin: 03/08/22 16:58 Dose: 0.5 mg Documented By: SR Hydromorphone HCl (Hydromorphone Inj 0.5 Mg/0.5 Ml Syr) 0.5 mg IV NOW STA Stop: 03/08/22 18:20 Last Admin: 03/08/22 18:22 Dose: 0.5 mg Documented By: SR Hydromorphone HCl (Hydromorphone Inj 0.5 Mg/0.5 Ml Syr) 0.5 mg IV NOW STA Stop: 03/08/22 20:23 Last Admin: 03/08/22 20:28 Dose: 0.5 mg Documented By: ROSIBEL Ceftriaxone Sodium (Rocephin) 2,000 mg in 70 mls @ 140 mls/hr IV NOW STA Stop: 03/08/22 16:36 Last Infusion: 03/08/22 16:53 Dose: 0 mls/hr Documented By: Admin: 03/08/22 16:23 Dose: 140 mls/hr Documented By: SR Vancomycin HCl 1,250 mg/ (Sodium Chloride) 275 mls @ 100 mls/hr IV NOW STA; Protocol Stop: 03/08/22 19:42 Last Admin: 03/08/22 17:35 Dose: 100 mls/hr Documented By: SR Imaging Data Radiologist's Impression: Foot X-Ray 03/08/22 14:37 XR foot LT min 3V routine CLINICAL HISTORY: wound, infection on left foot. COMPARISON STUDY: No previous studies for comparison. TECHNIQUE: 3 left foot views FINDINGS: Bones: There is no evidence for an acute fracture or dislocation. There is no lytic or blastic lesion. Joints: The joint spaces are maintained. The bones are in anatomic alignment. Soft tissues: There is no focal soft tissue abnormality. There is no radiopaque foreign body. IMPRESSION: 1. No acute osseous pathology. ACT 112: Negative or not required by law. Electronically signed by: Jaylon Connell M.D. 03/08/2022 3:06 PM Discharge Plan Visit Data Chief Complaint: Leg Injury/Pain Stated Complaint: LEFT LEG INFECTION ED Provider: Jon Adan Discharge Problem: Cellulitis, Diabetic foot ulcer, Acute leg pain Patient Disposition: Admitted As Inpatient Discharge Instructions Interventions: ED Discharge Assessment Last Done: 03/08/22 21:00
--- NOTE | 2022-03-08 16:12 | Electrocardiogram Report ---
Test Reason : Blood Pressure : / mmHG Vent. Rate : 104 BPM Atrial Rate : 104 BPM P-R Int : 160 ms QRS Dur : 088 ms QT Int : 330 ms P-R-T Axes : 074 047 066 degrees QTc Int : 433 ms Poor data quality, interpretation may be adversely affected Sinus tachycardia Low voltage QRS Septal infarct , age undetermined Abnormal ECG When compared with ECG of 11-JAN-2022 14:13, No significant change was found Confirmed by Aakash Ruff ([id number]) on 03/08/2022 4:12:36 PM Referred By: Confirmed By:Aakash Ruff
[2022-03-08 16:17] LABS: Basophils # (auto) 0.06 K/uL (0-0.2); Basophils % (auto) 0.4 %; Eosinophils # (auto) 0.31 K/uL (0-0.50); Eosinophils % (auto) 2.3 %; Hematocrit (blood only) 42.2 % (34.1-44.9); Hemoglobin 12.8 g/dl (12.0-16.0); Immature Granulocytes # (auto) 0.07 K/uL (0.00-0.02); Immature Granulocytes % (auto) 0.5 %; Lymphocytes # (auto) 3.04 K/uL (1.2-3.4); Lymphocytes % (auto) 22.5 %; Mean Corpuscular Hemoglobin 22.7 pg (25.0-34.0); Mean Corpuscular Hgb Conc 30.3 g/dL (32.0-36.0); Mean Platelet Volume 10.1 fL (9.4-12.3); Monocytes # (auto) 0.88 K/uL (0.24-0.82); Monocytes % (auto) 6.5 %; Neutrophils # (auto) 9.16 K/uL (1.4-6.5); Neutrophils % (auto) 67.8 %; Platelet Count 388 K/uL (130-400); RDW Coefficient of Variation 15.3 % (11.5-14.5); RDW Standard Deviation 41.2 fL (36.4-46.3); Red Blood Count 5.63 M/uL (3.93-5.22); White Blood Count 13.52 K/ul (4.8-10.8)
[2022-03-08 16:28] LABS: INR 0.9 (0.9-1.1); Partial Thromboplastin Ratio 0.8; Partial Thromboplastin Time 21.7 Seconds (21.0-31.0)
[2022-03-08] MEDS ORDERED: HYDROmorphone INJ 0.5 MG/0.5 ML SYR IV STA ×3 (16:34→20:22)
[2022-03-08 16:43] LABS: Alanine Aminotransferase 12 U/L (7-52); Albumin Globulin Ratio 1.3 (0.9-2); Albumin Level 4.7 gm/dl (3.4-5.0); Alkaline Phosphatase 139 U/L (34-104); Anion Gap 10 (3-11); Aspartate Aminotransferase 13 U/L (13-39); BUN Creatinine Ratio 22.2 (10-20); Bilirubin,Total 0.4 mg/dl (0.2-1.0); Blood Urea Nitrogen 10 mg/dl (6-23); Calcium 10.1 mg/dl (8.5-10.1); Carbon Dioxide 28 mmol/L (21-32); Chloride 98 mmol/L (98-107); Est GFR (African American) 128.9 ml/min; Est GFR (Non-African American) 111.2 ml/min; Globulin 3.5 gm/dl (2.5-4.0); Glucose 199 mg/dl (70-99(Fasting)); Magnesium 1.8 mg/dl (1.7-2.4); Potassium 4.2 mmol/L (3.5-5.1); Sodium 136 mmol/L (136-145); Total Protein 8.2 gm/dl (6.0-8.3)
[2022-03-08] MEDS ORDERED: VANCOMYCIN CONSULT ACTIVE PRN (16:58)
[2022-03-08] MEDS ORDERED: VANCOMYCIN HCL 1,250 MG in SODIUM CHLORIDE 0.9% 250 ML IV STA (16:58)
[2022-03-08] MEDS ORDERED: PIPERACILLIN/TAZOBACTAM 3.375 GM in DEXTROSE 5% 100 ML IV ONE (17:39)
--- NOTE | 2022-03-08 17:46 | History & Physical Report ---
Date of Service March 08, 2022 Assessment & Plan (1) Cellulitis of left foot: Plan: Patient presents with open, what appears to be pressure related area to her left great toe underside and across the ball of her feet. - no drainage noted and top layer of skin scabbed over - WBC elevated, afebrile - start on Zosyn and Vancomycin as she has history of MRSA - MRI of the left foot with and without contrast - pending above imaging consider specialty consults - ESR and CRP pending - She has 2+ pulses to lower foot and warm - could consider NATHAN if healing remains slow (2) History of right below knee amputation: Plan: Secondary to poor diabetic control and refractory osteo stump healing well, walks with walker (3) Anxiety: Plan: COntinue home anti-anxiety (4) Opioid dependence: Plan: Unfortunately will need to place on pain control medications for her foot infection as this is limiting her motion and weight bearing (5) Hyperglycemia due to type 2 diabetes mellitus: Plan: Basal bolus insulin goal would be <180mg/dl (6) PAD (peripheral artery disease): Plan: Continue ASA and Statin History of Present Illness Primary Care Provider: Vince Vernon, DO 56 YOF well known to the hospitalist service from her previous right foot infections and amputation. Patient is s/p righ BKA amputation in December 2021 and followed up with her surgeon today for staple removal and was directed to the EMD for wound on her left foot associated with erythema, pain, and swelling. Patient reports that on Sunday her daughter noticed blisters on the bottom of her foot and some erythema, patient states she has no idea how this occurred as she can not feel anything down there. She marked the area with the skin marker she received from previous hospitalizations. She reports that she has not been resting her foot on her wheelchair plate as she rarely uses her wheelchair and has not gotten any new shoes or stepped at anything. She endorses pain to the foot, chills that started this morning. In the EMD the patient had routine blood work performed, blood cultures. She received dose of Vancomycin. She will be admitted to medical surgical floor, pain control. ABX with Vancomycin and Zosyn, MRI of the foot. Will add on CRP, ESR. Await cultures. Medical History of: DMII, PAD. COVID test on admission is: NEGATIVE Allergies Allergy/AdvReac Type Severity Reaction Status Date / Time morphine Allergy Severe blisters Verified 03/08/22 16:16 in mouth Sulfa (Sulfonamide Allergy Severe rash/swelli Verified 03/08/22 16:16 Antibiotics) ng iron [From Venofer] Allergy Intermediate Hypertensio Verified 03/08/22 16:16 n vancomycin Allergy Intermediate YULIYA Verified 03/08/22 16:16 SYNDROME---CAN TAKE IF VERY SLOW DRIP. amoxicillin [From Augmentin] Allergy Mild itching/power Verified 03/08/22 16:16 h clavulanic acid Allergy Mild itching/power Verified 03/08/22 16:16 [From Augmentin] h Home Medications Medication Instructions Recorded Confirmed Type nortriptyline 50 mg capsule 100 mg PO HS 10/19/20 03/08/22 History (Pamelor) ropinirole 2 mg tablet 4 mg PO HS 10/19/20 03/08/22 History lancets (OneTouch UltraSoft #100 ea 11/12/20 03/08/22 History Lancets) metoprolol succinate 50 mg 50 mg PO QAM 03/05/21 03/08/22 History tablet,extended release 24 hr (Toprol XL) aspirin 81 mg tablet,delayed 81 mg PO BID #60 tabs 10/04/21 03/08/22 Rx release (Melissa Low Dose Aspirin) lorazepam 1 mg tablet (Ativan) 1 mg PO TID PRN Anxiety 11/04/21 03/08/22 History cyclobenzaprine 10 mg tablet 10 mg PO BID 11/24/21 03/08/22 History metoclopramide HCl 5 mg tablet 5 mg PO AC #90 tabs 12/26/21 03/08/22 Rx oxycodone-acetaminophen 5 mg-325 2 tab PO Q4H PRN moderate to 12/26/21 03/08/22 Rx mg tablet (Percocet) severe breakthrough pain #30 tabs insulin glargine 100 unit/mL (3 40 unit subcut HS 03/08/22 03/08/22 History mL) subcutaneous pen (Lantus Solostar U-100 Insulin) insulin lispro 100 unit/mL 7 unit subcut TIDM 03/08/22 03/08/22 History subcutaneous pen ondansetron 8 mg disintegrating 8 mg translingual TID PRN Nausea 03/08/22 03/08/22 History tablet pregabalin 75 mg capsule 75 mg PO TID 03/08/22 03/08/22 History zolpidem 10 mg tablet 10 mg PO HS PRN Sleep 03/08/22 03/08/22 History Past Med/Surg History Medical History Acidosis, lactic Acute dehydration 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 No issues per anesthesia postop progress note. Anemia Cellulitis Chronic back pain Depression Diabetic peripheral neuropathy DM2 (diabetes mellitus, type 2) IDDM, A1c 07/2021-11% Gastritis Gastroenteritis GIB (gastrointestinal bleeding) History of amputation of great toe Hyperlipidemia Insulin dependent diabetes mellitus Iron deficiency anemia Nonobstructive atherosclerosis of coronary artery Numbness of lower extremity Peripheral neuropathy Right second toe ulcer Seizures Sepsis Surgical History History of cardiac cath done at [facility]; 09/22/19; LM - mild luminal irregularities. LAD - mid 20-30%, distal with myocardial bridge & 30% stenosis. L Cx - mild luminal irregularities. RCA - proximal <30% stenosis; mid/distal vessel mild plaques. PDA - mild luminal irregularities. History of esophagogastroduodenoscopy (EGD) History of right below knee amputation (12/22/21) Right Below Knee Amputation(Right) - Davon Good MD, FACS Family History Mother , age 63 Myocardial infarction Father , age 68 or 69 Myocardial infarction Brother S/P CABG (coronary artery bypass graft) Sister Myocardial infarction x 3; she is 57yo Social History Smoking Status: Current every day smoker Tobacco Type: Cigarettes packs per day: 0.5; Years Smoked: 20; Cigarettes Per Day: 20; Second Hand Exposure: No; Hx Alcohol Use: No Hx Substance Use: Yes Prescribed Medications: Marijuana Last Used Substance: Days (ago) Last Used Substance Other:: 2 days ago Substance Use Type Other:: medical marijuana Preferred Language: Liberian Communication Ability: Effective Visual Impairment: No Limitations Hearing Ability: Normal Financial Services Representative Required: No Beliefs That Will Affect Care: None marital status: Current Living Situation: Spouse current occupational status: unemployed 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 other: raising a grandchild as well; lives in [place] Feels Safe at Home: Yes during the past year weight has: remained stable Assistive Devices: Walker and Wheelchair Review of Systems Review of Systems: REVIEW OF SYSTEMS: Constitutional: (+) chills, no fevers Eyes: No diplopia, no worsening or blurred vision ENT: normal hearing, no trouble swallowing Respiratory: No cough, sputum, dyspnea at rest or on exertion Cardiovascular: No chest pain, tightness or palpitations Abdomen: No pain, nausea, vomiting, diarrhea or constipation Musculoskeletal: (+) left foot pain, calf pain, swelling Neurologic: No weakness, numbness/tingling, or balance problems Psychiatric: No anxiety or depression Skin: (+) mosquito bites to left leg Physical Exam Physical Exam: PHYSICAL EXAM: General: awake, alert, no apparent distress Head: Normocephalic, atraumatic ENT: PERRL, EOMI, no pharyngeal exudate, mucous membranes moist Neuro: AAO x 3, speech clear and appropriate, strength intact bilaterally 5/5- noting right BKA, sensation intact and equal all extremities and dermatomes, no pronator drift Chest: equal rise and fall of the chest, no accessory muscle use, no heaves or thrills, Clear to auscultation, on room air, Cardiac: Regular rate and rhythm, telemetry reviewed, skin warm dry, cap refill <3 seconds, peripheral pulses +2 no JVD, no murmur, no edema GI: NABS x 4 quadrants, soft, nontender to palpation, no rebound, guarding or tenderness : Spontaneously voiding, no pain, no CVA tenderness, Psych: Normal mood and affect Skin: erythema with pain to left foot, left metatarsal, and great toe. Pain with palpation to peroneus longus/brevis Results & Data Results & Data ([facility]) Vital Signs (Past 12 Hours) Vital Signs Temp Pulse Pulse Resp BP BP Pulse Ox 03/08/22 16:07 97 H 18 96 03/08/22 16:07 97 H 16 205/96 H 97 03/08/22 14:21 36.4 C L 110 H 20 166/100 H 96 O2 Del Method 03/08/22 16:07 Room Air 03/08/22 16:07 Room Air 03/08/22 14:21 Room Air Laboratory Results Abnormal lab results 03/08/22 03/08/22 Range/Units 15:45 15:45 WBC 13.52 H (4.8-10.8) K/ul RBC 5.63 H (3.93-5.22) M/uL MCV 75.0 L (80.0-100.0) fL MCH 22.7 L (25.0-34.0) pg MCHC 30.3 L (32.0-36.0) g/dL RDW Coeff of Maria Del Carmen 15.3 H (11.5-14.5) % Neut # (Auto) 9.16 H (1.4-6.5) K/uL [place] # (Auto) 0.88 H (0.24-0.82) K/uL Immature Gran # (Auto) 0.07 H (0.00-0.02) K/uL Creatinine 0.45 L (0.6-1.2) mg/dl BUN/Creatinine Ratio 22.2 H (10-20) Glucose 199 H (70-99(Fasting)) mg/dl Alkaline Phosphatase 139 H (34-104) U/L Diagnostic Findings Foot X-Ray 03/08/22 14:37 XR foot LT min 3V routine CLINICAL HISTORY: wound, infection on left foot. COMPARISON STUDY: No previous studies for comparison. TECHNIQUE: 3 left foot views FINDINGS: Bones: There is no evidence for an acute fracture or dislocation. There is no lytic or blastic lesion. Joints: The joint spaces are maintained. The bones are in anatomic alignment. Soft tissues: There is no focal soft tissue abnormality. There is no radiopaque foreign body. IMPRESSION: 1. No acute osseous pathology. ACT 112: Negative or not required by law. Electronically signed by: Jaylon Connell M.D. 03/08/2022 3:06 PM Medications Administered Home Medications nortriptyline 50 mg capsule (Pamelor) 100 mg PO HS 10/19/20 [History Confirmed 03/08/22] ropinirole 2 mg tablet 4 mg PO HS 10/19/20 [History Confirmed 03/08/22] lancets (OneTouch UltraSoft Lancets) #100 ea 11/12/20 [History Confirmed 03/08/22] metoprolol succinate 50 mg tablet,extended release 24 hr (Toprol XL) 50 mg PO QAM 03/05/21 [History Confirmed 03/08/22] aspirin 81 mg tablet,delayed release (Melissa Low Dose Aspirin) 81 mg PO BID #60 tabs 10/04/21 [Rx Confirmed 03/08/22] lorazepam 1 mg tablet (Ativan) 1 mg PO TID PRN Anxiety 11/04/21 [History Confirmed 03/08/22] cyclobenzaprine 10 mg tablet 10 mg PO BID 11/24/21 [History Confirmed 03/08/22] metoclopramide HCl 5 mg tablet 5 mg PO AC #90 tabs 12/26/21 [Rx Confirmed 03/08/22] oxycodone-acetaminophen 5 mg-325 mg tablet (Percocet) 2 tab PO Q4H PRN moderate to severe breakthrough pain #30 tabs 12/26/21 [Rx Confirmed 03/08/22] insulin glargine 100 unit/mL (3 mL) subcutaneous pen (Lantus Solostar U-100 Insulin) 40 unit subcut HS 03/08/22 [History Confirmed 03/08/22] insulin lispro 100 unit/mL subcutaneous pen 7 unit subcut TIDM 03/08/22 [History Confirmed 03/08/22] ondansetron 8 mg disintegrating tablet 8 mg translingual TID PRN Nausea 03/08/22 [History Confirmed 03/08/22] pregabalin 75 mg capsule 75 mg PO TID 03/08/22 [History Confirmed 03/08/22] zolpidem 10 mg tablet 10 mg PO HS PRN Sleep 03/08/22 [History Confirmed 03/08/22] Active Medications Vancomycin HCl 1,250 mg/ (Sodium Chloride) 275 mls @ 100 mls/hr IV NOW STA; Protocol Stop: 03/08/22 19:42 Last Admin: 03/08/22 17:35 Dose: 100 mls/hr Miscellaneous Information (Vancomycin Consult Active) 1 each N/A UD PRN PRN Reason: Consult Stop: 04/07/22 16:57 Vancomycin HCl 1,250 mg/ (Sodium Chloride) 275 mls @ 100 mls/hr IV NOW STA; Protocol Stop: 03/08/22 19:42 Last Admin: 03/08/22 17:35 Dose: 100 mls/hr Documented By: SR Discontinued Medications Hydromorphone HCl (Hydromorphone Inj 0.5 Mg/0.5 Ml Syr) 0.5 mg IV NOW STA Stop: 03/08/22 16:35 Last Admin: 03/08/22 16:58 Dose: 0.5 mg Documented By: SR Ceftriaxone Sodium (Rocephin) 2,000 mg in 70 mls @ 140 mls/hr IV NOW STA Stop: 03/08/22 16:36 Last Infusion: 03/08/22 16:53 Dose: 0 mls/hr Documented By: Admin: 03/08/22 16:23 Dose: 140 mls/hr Documented By: SR ECG Additional Comments: Vent. Rate : 104 BPM Atrial Rate : 104 BPM P-R Int : 160 ms QRS Dur : 088 ms QT Int : 330 ms P-R-T Axes : 074 047 066 degrees QTc Int : 433 ms Poor data quality, interpretation may be adversely affected Sinus tachycardia Low voltage QRS Septal infarct , age undetermined Abnormal ECG When compared with ECG of 11-JAN-2022 14:13, No significant change was found Confirmed by Aakash Ruff ([id number]) on 03/08/2022 4:12:36 PM Code Status & VTE Plan Code Status CODE: FULL VTE: SCDS, Heparin 5000 units subq q12 VTE Prophylaxis Plan VTE Prophylaxis will be ordered: Yes Supervising Physician Co-Signing Physician Notes I supervised KRYS [place] on this admission. I interviewed and examined the patient independently of him. The plan is as written in his note except for any following changes/exceptions: None 56yo F w/ diabetes and smoking hx who presents with left foot infection and cellulitis. She has hx of LE infections and poor wound healing and recently required a right BKA for similar issues, now here with ulcer on her foot and signs of cellulitis. Admit on IV abx vanc/Zosyn. Follow cultures. MRI foot. PG Care Time/CCT Total # of Minutes Spent Total Time Spent with Patient: Total time spent is greater than 50% in coordination of care (as documented) at patient's floor/unit and/or counseling patient: Coding Level of Care Code 36082 Initial Inpt Care Lvl 3 Diagnoses Cellulitis of left foot L03.116 History of right below knee amputation Z89.511 Anxiety F41.9 Opioid dependence F11.20 Hyperglycemia due to type 2 diabetes mellitus E11.65; Z79.4 Diabetes mellitus exterminator termite insulin use: with exterminator termite use PAD (peripheral artery disease) I73.9 (1) Hyperglycemia due to type 2 diabetes mellitus Diabetes mellitus halfway insulin use: with exterminator termite use Qualified Code(s): E11.65 - Type 2 diabetes mellitus with hyperglycemia; Z79.4 - exterminator termite (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
[2022-03-08] MEDS ORDERED: GLUCAGON FOR INJ 1 MG VIAL SQ PRN (20:32)
[2022-03-08] MEDS ORDERED: GLUCOSE 10 TAB/TUBE PO PRN (20:32)
[2022-03-08] MEDS ORDERED: ONDANSETRON 8MG OD TAB SL PRN (20:32)
[2022-03-08] MEDS ORDERED: GLUCOSE 40% GEL 15 GM TUBE PO PRN (20:32)
[2022-03-08] MEDS ORDERED: DEXTROSE 50% 50 ML SYRINGE IV PRN (20:32)
[2022-03-08] MEDS ORDERED: Patient's HEIGHT &/or WEIGHT Needed SCH (21:30)
[2022-03-08] MEDS: PREGABALIN 75 MG CAP PO SCH (22:18)
[2022-03-08] MEDS: ZOLPIDEM TARTRATE 10 MG TAB PO PRN (22:19)
[2022-03-08] MEDS: oxyCODONE/ACETAMINOPHEN 5mg/325mg TAB PO PRN (22:19)
[2022-03-08] MEDS: HEPARIN SOD 5,000 UNIT/0.5 ML VIAL SQ SCH (22:20)
[2022-03-08] MEDS: CYCLOBENZAPRINE HCL 10 MG TAB PO SCH (22:21)
[2022-03-08] MEDS: ASPIRIN 81 MG ECTAB PO SCH (22:22)
[2022-03-08] MEDS: rOPINIRole HCL 2 MG TABLET PO SCH (22:22)
[2022-03-08] MEDS: NORTRIPTYLINE HCL 25 MG CAP PO SCH (22:23)
[2022-03-08] MEDS: PANTOprazole 40 MG TAB PO SCH (22:24)
[2022-03-08] MEDS: INSULIN ASPART PER UNIT SC SCH (23:23)
[2022-03-08] MEDS: LANTUS PER UNIT CHARGE SQ SCH (23:24)
[2022-03-09] MEDS: HYDROmorphone INJ 0.5 MG/0.5 ML SYR IV PRN ×4 (01:48→23:25)
[2022-03-09] MEDS: VANCOMYCIN HCL 1,500 MG in SODIUM CHLORIDE 0.9% 500 ML IV SCH ×3 (02:50→19:27)
[2022-03-09] MEDS: ONDANSETRON 4 MG OD TAB SL PRN (04:28)
[2022-03-09] MEDS: PIPERACILLIN/TAZOBACTAM 3.375 GM in DEXTROSE 5% 100 ML IV SCH ×2 (04:40→15:09)
[2022-03-09] MEDS: oxyCODONE/ACETAMINOPHEN 5mg/325mg TAB PO PRN ×3 (05:30→22:27)
[2022-03-09 08:50] LABS: Basophils # (auto) 0.05 K/uL (0-0.2); Basophils % (auto) 0.5 %; Eosinophils # (auto) 0.32 K/uL (0-0.50); Eosinophils % (auto) 3.4 %; Hematocrit (blood only) 38.3 % (34.1-44.9); Hemoglobin 11.6 g/dl (12.0-16.0); Immature Granulocytes # (auto) 0.03 K/uL (0.00-0.02); Immature Granulocytes % (auto) 0.3 %; Lymphocytes # (auto) 2.23 K/uL (1.2-3.4); Lymphocytes % (auto) 23.6 %; Mean Corpuscular Hgb Conc 30.3 g/dL (32.0-36.0); Mean Corpuscular Volume 75.8 fL (80.0-100.0); Mean Platelet Volume 9.5 fL (9.4-12.3); Monocytes # (auto) 0.73 K/uL (0.24-0.82); Monocytes % (auto) 7.7 %; Neutrophils # (auto) 6.07 K/uL (1.4-6.5); Neutrophils % (auto) 64.5 %; Platelet Count 329 K/uL (130-400); RDW Coefficient of Variation 15.1 % (11.5-14.5); RDW Standard Deviation 41.2 fL (36.4-46.3); Red Blood Count 5.05 M/uL (3.93-5.22); White Blood Count 9.43 K/ul (4.8-10.8)
[2022-03-09] MEDS: METOCLOPRAMIDE HCL 5 MG TABLET PO SCH ×3 (08:57→18:27)
[2022-03-09] MEDS: PANTOprazole 40 MG TAB PO SCH ×2 (08:57→20:56)
[2022-03-09] MEDS: METOPROLOL SUCC 50MG EXT REL TAB PO SCH (08:57)
[2022-03-09] MEDS: PREGABALIN 75 MG CAP PO SCH ×3 (08:57→20:56)
[2022-03-09] MEDS: HEPARIN SOD 5,000 UNIT/0.5 ML VIAL SQ SCH ×2 (08:58→20:56)
[2022-03-09] MEDS: CYCLOBENZAPRINE HCL 10 MG TAB PO SCH ×2 (08:58→20:56)
[2022-03-09] MEDS: ASPIRIN 81 MG ECTAB PO SCH ×2 (08:58→20:56)
[2022-03-09] MEDS: INSULIN ASPART PER UNIT SC SCH ×4 (09:09→21:30)
[2022-03-09 09:34] LABS: BUN Creatinine Ratio 17.9 (10-20); Calcium 9.2 mg/dl (8.5-10.1); Creatinine Clr Calc Pharmacy 100.3 ml/min; Est GFR (Non-African American) 103.5 ml/min; Magnesium 1.7 mg/dl (1.7-2.4); Potassium 3.8 mmol/L (3.5-5.1)
--- NOTE | 2022-03-09 09:46 | Magnetic Resonance Report ---
MR foot LT w/o con HISTORY: Left foot erythema pain at metatarsal and ligaments TECHNIQUE: Multiplanar multisequence MRI of the left forefoot was performed without contrast accordin g to standard departmental protocol. COMPARISON STUDY: Left foot radiograph 03/08/2022. FINDINGS: There is skin marker along the plantar aspect of the MTP joints. Mild subcutaneous trace ed vero deep to the skin marker along the plantar surface of the forefoot. No loculated fluid collections to suggest an abscess. Normal marrow signal intensity seen throughout the visualized osseous structu res. No fracture or dislocation. No erosive changes to suggest an osteomyelitis. The flexor and exten sor tendons are normal in course, caliber, and signal intensity. There is also mild dorsal subcutaneo us edema within the foot. The Lisfranc joint appears intact. No joint effusions. IMPRESSION: 1. No fracture or dislocation within the left foot. 2. Mild nonspecific subcutaneous edema. No loculated fluid collections to suggest an abscess. 3. No evidence for osteomyelitis. ACT 112: Negative or not required by law. Electronically signed by: Ernst Murray M.D. 03/09/2022 9:44 AM
--- NOTE | 2022-03-09 10:37 | Pharmacy Report ---
Pharmacy PK ABX Note - Date of Service March 09, 2022 - Assessment and Plan Assessment 56 year old F receiving VANCOMYCIN IV for treatment of L diabetic foot infection. Pertinent microbiologic data includes: prior h/o MRSA and prevotella in R foot wound cx Patient was hospitalized in the last 30 days for R BKA MRI read as negative for osteo and negative for abscess Of note, patient has h/o vancomycin infusion reaction (flushing) however tolerates vanco when infused at slower rates Plan Vancomycin * 1250mg IV x 1 given in ER * Maintenance dose: 1500 mg IV every 8 hours was utilized 12/2021 and did produce more desirable trough levels. * Target AUC/CELSO of 400-600 mg/L.hr desired, but will need to factor in longer infusion time when estimating this parameter * Trough level ordered for: 03/10 prior to 4th maint dose Pharmacy will continue to follow and will adjust dose/frequency as necessary. Thank you. Pharmacy has transitioned to AUC monitoring for vancomycin. AUC/CELSO is the preferred PK/PD target and is associated with decreased risk of nephrotoxicity compared to traditional trough targets.
--- NOTE | 2022-03-09 18:02 | Hospitalist Progress Note ---
Date of Service March 09, 2022 Assessment & Plan (1) Cellulitis of left foot: Plan: Patient presents with open, what appears to be pressure related area to her left great toe underside and across the ball of her feet. - no drainage noted and top layer of skin scabbed over - WBC elevated, afebrile - start on Zosyn and Vancomycin as she has history of MRSA - MRI of the left foot with and without contrast: no osteomyelitis noted. - She has 2+ pulses to lower foot and warm -inflammatory markers appear elelevated. - will consider NATHAN if healing remains slow -will consider ortho consult in AM. (2) History of right below knee amputation: Plan: Secondary to poor diabetic control and refractory osteo stump healing well, walks with walker (3) Anxiety: Plan: COntinue home anti-anxiety (4) Opioid dependence: Plan: Unfortunately will need to place on pain control medications for her foot infection as this is limiting her motion and weight bearing Pain appears controlled. (5) Hyperglycemia due to type 2 diabetes mellitus: Plan: Basal bolus insulin goal would be <180mg/dl (6) PAD (peripheral artery disease): Plan: Continue ASA and Statin Admission and Anticipated Discharge Date Admission Date: March 08, 2022 Subjective 56 yo female reports feeling well. Patient reports no fever, chills, nausea, vomiting. Review of Systems Review of Systems: Right Total Knee Arthroplasty, Physical Exam Physical Exam: General: awake, alert, no apparent distress Head: Normocephalic, atraumatic ENT: PERRL, EOMI, no pharyngeal exudate, mucous membranes moist Neuro: AAO x 3, speech clear and appropriate, strength intact bilaterally 5/5- noting right BKA, sensation intact and equal all extremities and dermatomes, no pronator drift Chest: equal rise and fall of the chest, no accessory muscle use, no heaves or thrills, Clear to auscultation, on room air, Cardiac: Regular rate and rhythm, telemetry reviewed, skin warm dry, cap refill <3 seconds, peripheral pulses +2 no JVD, no murmur, no edema GI: NABS x 4 quadrants, soft, nontender to palpation, no rebound, guarding or tenderness : Spontaneously voiding, no pain, no CVA tenderness, Psych: Normal mood and affect Skin: erythema with pain to left foot, left metatarsal, and great toe. Pain with palpation to peroneus longus/brevis Results & Data Results & Data ([facility]) Vital Signs (Past 12 Hours) Vital Signs Temp Pulse Pulse Resp BP Pulse Ox O2 Del Method 03/09/22 09:50 36.7 C 86 16 154/96 H 95 Room Air 03/09/22 06:20 84 16 97 03/09/22 06:10 87 18 94 PG Care Time/CCT Total # of Minutes Spent Total Time Spent with Patient: Total time spent is greater than 50% in coordination of care (as documented) at patient's floor/unit and/or counseling patient: Coding Level of Care Code 63700 Subseq Hosp Care Lvl 3 Diagnoses Cellulitis of left foot L03.116 History of right below knee amputation Z89.511 Anxiety F41.9 Opioid dependence F11.20 Hyperglycemia due to type 2 diabetes mellitus E11.65; Z79.4 Diabetes mellitus senior care insulin use: with exterminator use PAD (peripheral artery disease) I73.9 Time Spent (min) 35 (1) Hyperglycemia due to type 2 diabetes mellitus Diabetes mellitus exterminator insulin use: with exterminator use Qualified Code(s): E11.65 - Type 2 diabetes mellitus with hyperglycemia; Z79.4 - 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
[2022-03-09] MEDS: NORTRIPTYLINE HCL 25 MG CAP PO SCH (20:56)
[2022-03-09] MEDS: rOPINIRole HCL 2 MG TABLET PO SCH (20:57)
[2022-03-09] MEDS: LANTUS PER UNIT CHARGE SQ SCH (21:31)
[2022-03-09] MEDS: ZOLPIDEM TARTRATE 10 MG TAB PO PRN (21:32)
[2022-03-10] MEDS: PIPERACILLIN/TAZOBACTAM 3.375 GM in DEXTROSE 5% 100 ML IV SCH ×4 (01:01→21:13)
[2022-03-10] MEDS ORDERED: VANCOMYCIN LEVEL ONE (01:30)
[2022-03-10] MEDS: VANCOMYCIN HCL 1,500 MG in SODIUM CHLORIDE 0.9% 500 ML IV SCH (02:13)
[2022-03-10] MEDS: oxyCODONE/ACETAMINOPHEN 5mg/325mg TAB PO PRN ×4 (03:14→21:12)
[2022-03-10] MEDS: HYDROmorphone INJ 0.5 MG/0.5 ML SYR IV PRN ×3 (05:30→19:40)
[2022-03-10] MEDS: LORazepam 1 MG TAB PO PRN ×3 (05:30→21:12)
[2022-03-10 09:12] LABS: Basophils # (auto) 0.08 K/uL (0-0.2); Basophils % (auto) 0.8 %; Eosinophils # (auto) 0.37 K/uL (0-0.50); Eosinophils % (auto) 3.6 %; Hematocrit (blood only) 40.2 % (34.1-44.9); Hemoglobin 12.2 g/dl (12.0-16.0); Immature Granulocytes # (auto) 0.02 K/uL (0.00-0.02); Immature Granulocytes % (auto) 0.2 %; Lymphocytes # (auto) 2.53 K/uL (1.2-3.4); Lymphocytes % (auto) 24.8 %; Mean Corpuscular Hemoglobin 22.8 pg (25.0-34.0); Mean Corpuscular Hgb Conc 30.3 g/dL (32.0-36.0); Mean Corpuscular Volume 75.3 fL (80.0-100.0); Mean Platelet Volume 9.8 fL (9.4-12.3); Monocytes # (auto) 0.79 K/uL (0.24-0.82); Monocytes % (auto) 7.7 %; Neutrophils # (auto) 6.42 K/uL (1.4-6.5); Neutrophils % (auto) 62.9 %; Platelet Count 342 K/uL (130-400); RDW Coefficient of Variation 15.2 % (11.5-14.5); RDW Standard Deviation 40.9 fL (36.4-46.3); Red Blood Count 5.34 M/uL (3.93-5.22); White Blood Count 10.21 K/ul (4.8-10.8)
[2022-03-10] MEDS: METOPROLOL SUCC 50MG EXT REL TAB PO SCH (09:27)
[2022-03-10] MEDS: METOCLOPRAMIDE HCL 5 MG TABLET PO SCH ×3 (09:27→17:56)
[2022-03-10] MEDS: ASPIRIN 81 MG ECTAB PO SCH ×2 (09:28→21:08)
[2022-03-10] MEDS: PANTOprazole 40 MG TAB PO SCH ×2 (09:28→21:08)
[2022-03-10] MEDS: HEPARIN SOD 5,000 UNIT/0.5 ML VIAL SQ SCH ×2 (09:28→21:09)
[2022-03-10 09:33] LABS: Albumin Globulin Ratio 1.3 (0.9-2); Albumin Level 4.5 gm/dl (3.4-5.0); BUN Creatinine Ratio 14.9 (10-20); Bilirubin,Total 0.5 mg/dl (0.2-1.0); C Reactive Protein 3.71 mg/dl (0-0.5); Calcium 9.6 mg/dl (8.5-10.1); Creatinine Clr Calc Pharmacy 119.5 ml/min; Est GFR (African American) 127.1 ml/min; Est GFR (Non-African American) 109.6 ml/min; Globulin 3.5 gm/dl (2.5-4.0); Magnesium 1.8 mg/dl (1.7-2.4); Potassium 3.6 mmol/L (3.5-5.1)
[2022-03-10] MEDS: INSULIN ASPART PER UNIT SC SCH ×4 (09:35→21:26)
[2022-03-10] MEDS: PREGABALIN 75 MG CAP PO SCH ×3 (09:35→21:12)
[2022-03-10] MEDS: CYCLOBENZAPRINE HCL 10 MG TAB PO SCH ×2 (09:35→21:12)
[2022-03-10] MEDS: VANCOMYCIN HCL 1,000 MG in SODIUM CHLORIDE 0.9% 250 ML IV SCH ×2 (10:56→19:38)
--- NOTE | 2022-03-10 13:24 | Pharmacy Report ---
Pharmacy PK ABX Note - Date of Service March 10, 2022 - Assessment and Plan Assessment * 56 year old F receiving VANCOMYCIN IV for treatment of L diabetic foot infection. * Pertinent microbiologic data includes: prior h/o MRSA and prevotella in R foot wound cx * Patient was hospitalized in the last 30 days for R BKA * MRI read as negative for osteo and negative for abscess * Of note, patient has h/o vancomycin infusion reaction (flushing), however tolerates vanco when infused at slower rates * Vanc trough obtained today (20.9mcg/mL) indicates supratherapeutic dosing. Plan Vancomycin * Maintenance dose: reduce dose to Vancomycin 1gm IV q8h * Target AUC/CELSO of 400-600 mg/L.hr desired, but will need to factor in longer infusion time when estimating this parameter * Trough level ordered for: 03/11 Pharmacy will continue to follow and will adjust dose/frequency as necessary. Thank you. Pharmacy has transitioned to AUC monitoring for vancomycin. AUC/CELSO is the preferred PK/PD target and is associated with decreased risk of nephrotoxicity compared to traditional trough targets.
[2022-03-10] MEDS: CARBOHYDRATES FOR HYPOGLYCEMIA PO PRN (15:37)
--- NOTE | 2022-03-10 21:03 | Hospitalist Progress Note ---
Date of Service March 10, 2022 Assessment & Plan (1) Cellulitis of left foot: Plan: Patient presents with open, what appears to be pressure related area to her left great toe underside and across the ball of her feet. - no drainage noted and top layer of skin scabbed over - WBC elevated, afebrile - start on Zosyn and Vancomycin as she has history of MRSA - MRI of the left foot with and without contrast: no osteomyelitis noted. - She has 2+ pulses to lower foot and warm -inflammatory markers appear elelevated. - will consider NATHAN if healing remains slow -consulted podiatry for possible debridement of non viable tissue; Dr. Montaño is not available. Patient appears to be improving. Thankfully no signs of osteoMYELITIS (2) History of right below knee amputation: Plan: Secondary to poor diabetic control and refractory osteo stump healing well, walks with walker (3) Anxiety: Plan: COntinue home anti-anxiety (4) Opioid dependence: Plan: Unfortunately will need to place on pain control medications for her foot infection as this is limiting her motion and weight bearing Pain appears controlled. (5) Hyperglycemia due to type 2 diabetes mellitus: Plan: Basal bolus insulin goal would be <180mg/dl (6) PAD (peripheral artery disease): Plan: Continue ASA and Statin Admission and Anticipated Discharge Date Admission Date: March 08, 2022 Subjective Patient reports no new symptoms. Review of Systems Review of Systems: All systems reviewed & are unremarkable except as noted in HPI & below Physical Exam Physical Exam: General: awake, alert, no apparent distress Head: Normocephalic, atraumatic ENT: PERRL, EOMI, no pharyngeal exudate, mucous membranes moist Neuro: AAO x 3, speech clear and appropriate, strength intact bilaterally 5/5- noting right BKA, sensation intact and equal all extremities and dermatomes, no pronator drift Chest: equal rise and fall of the chest, no accessory muscle use, no heaves or thrills, Clear to auscultation, on room air, Cardiac: Regular rate and rhythm, telemetry reviewed, skin warm dry, cap refill <3 seconds, peripheral pulses +2 no JVD, no murmur, no edema GI: NABS x 4 quadrants, soft, nontender to palpation, no rebound, guarding or tenderness : Spontaneously voiding, no pain, no CVA tenderness, Psych: Normal mood and affect Skin: erythema with pain to left foot, left metatarsal, and great toe. Pain with palpation to peroneus longus/brevis Results & Data Results & Data ([facility]) Vital Signs (Past 12 Hours) Vital Signs Temp Pulse Resp BP Pulse Ox O2 Del Method 03/10/22 16:00 36.6 C 84 20 172/88 H 97 Room Air PG Care Time/CCT Total # of Minutes Spent Total Time Spent with Patient: Total time spent is greater than 50% in coordination of care (as documented) at patient's floor/unit and/or counseling patient: Coding Level of Care Code 47479 Subseq Hosp Care Lvl 3 Diagnoses Cellulitis of left foot L03.116 History of right below knee amputation Z89.511 Anxiety F41.9 Opioid dependence F11.20 Hyperglycemia due to type 2 diabetes mellitus E11.65; Z79.4 Diabetes mellitus skilled nursing insulin use: with skilled nursing use PAD (peripheral artery disease) I73.9 Time Spent (min) 35 Comment reviewed images/ discuss with wound care/discussed with ortho who recommended podiatry coN (1) Hyperglycemia due to type 2 diabetes mellitus Diabetes mellitus skilled nursing insulin use: with machine long goods helper use Qualified Code(s): E11.65 - Type 2 diabetes mellitus with hyperglycemia; Z79.4 - custodial (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
[2022-03-10] MEDS: NORTRIPTYLINE HCL 25 MG CAP PO SCH (21:08)
[2022-03-10] MEDS: rOPINIRole HCL 2 MG TABLET PO SCH (21:09)
[2022-03-10] MEDS: LANTUS PER UNIT CHARGE SQ SCH (21:25)
[2022-03-10] MEDS: ZOLPIDEM TARTRATE 10 MG TAB PO PRN (21:25)
--- NOTE | 2022-03-10 21:50 | Orthopedic Consultation ---
Date of Consultation March 10, 2022 Assessment & Plan (1) Diabetic foot ulcer: Patient see, evaluated, and treated. Reviewed history of Patient who is at severe risk for loss of limb. X-rays & MRI negative for osseous involvement. No signs of gas. Erythema streak consistent with lymphangitis. Cont' IV abx therapy. Sharp debridement of wounds to Patient tolerance at bedside. Rx dispensed for Santyl collagenase to be applied with dressing changes. Dressing changed at today's visit with out incident. Thank you for involving me in the care of this Patient. I will continue to follow while in house. Today's procedure is an excisional debridement of deep tissue. There is a moderate amount of serosanguineous exudate draining from the ulcer. The ulcer base is described as containing has pink granulation. Necrotic or devitalized tissue is estimated to be present in approximately 60% of the pressure ulcer bed. The ulcer has been exposed full-thickness tissue. I have informed the patient of the risks and benefit of this procedure and they have had the opportunity to ask questions. Appropriate consent has been obtained. The patient refused site marking. The area was prepped and draped in usual aseptic manner. The procedure was performed and a clean field. I debrided the wound sharply with a sterile #15 blade and necrotic tissue was excised down to and including subcutaneous tissue. Bleeding was minimal and hemostasis was achieved using pressure. The patient tolerated procedure and anesthesia well. The patient was educated regarding the signs and symptoms of infection, such as purulent drainage, edema, cellulitis, and significant pain, and to notify healthcare personnel for any of these things occur. Postprocedure no increased pain. (2) Cellulitis: (3) Cellulitis of left foot: History of Present Illness Attending Physician: Ricardo Hernadez History of Present Illness Patient is a 56-year-old female who is seen at bedside. She is has a Left foot diabetic foot ulcer and associated left lower extremity cellulitis. She has a past medical history of opiate dependence, cellulitis, emphysema, diabetic foot wounds, amputation in the right leg, osteomyelitis, MRSA, who presents to the ER for left lower extremity pain. Patient had a a right foot DFU earlier this year resulting in a BKA on 12/22/[address] Marina. She went for follow up and wa s referred to [facility] ED. Allergies Allergy/AdvReac Type Severity Reaction Status Date / Time morphine Allergy Severe blisters Verified 03/08/22 16:16 in mouth Sulfa (Sulfonamide Allergy Severe rash/swelli Verified 03/08/22 16:16 Antibiotics) ng iron [From Venofer] Allergy Intermediate Hypertensio Verified 03/08/22 16:16 n vancomycin Allergy Intermediate YULIYA Verified 03/08/22 16:16 SYNDROME---CAN TAKE IF VERY SLOW DRIP. amoxicillin [From Augmentin] Allergy Mild itching/power Verified 03/08/22 16:16 h clavulanic acid Allergy Mild itching/power Verified 03/08/22 16:16 [From Augmentin] h Home Medications Medication Instructions Recorded Confirmed Type nortriptyline 50 mg capsule 100 mg PO HS 10/19/20 03/08/22 History (Pamelor) ropinirole 2 mg tablet 4 mg PO HS 10/19/20 03/08/22 History lancets (OneTouch UltraSoft #100 ea 11/12/20 03/08/22 History Lancets) metoprolol succinate 50 mg 50 mg PO QAM 03/05/21 03/08/22 History tablet,extended release 24 hr (Toprol XL) aspirin 81 mg tablet,delayed 81 mg PO BID #60 tabs 10/04/21 03/08/22 Rx release (Melissa Low Dose Aspirin) lorazepam 1 mg tablet (Ativan) 1 mg PO TID PRN Anxiety 11/04/21 03/08/22 History cyclobenzaprine 10 mg tablet 10 mg PO BID 11/24/21 03/08/22 History metoclopramide HCl 5 mg tablet 5 mg PO AC #90 tabs 12/26/21 03/08/22 Rx oxycodone-acetaminophen 5 mg-325 2 tab PO Q4H PRN moderate to 12/26/21 03/08/22 Rx mg tablet (Percocet) severe breakthrough pain #30 tabs insulin glargine 100 unit/mL (3 40 unit subcut HS 03/08/22 03/08/22 History mL) subcutaneous pen (Lantus Solostar U-100 Insulin) insulin lispro 100 unit/mL 7 unit subcut TIDM 03/08/22 03/08/22 History subcutaneous pen ondansetron 8 mg disintegrating 8 mg translingual TID PRN Nausea 03/08/22 03/08/22 History tablet pregabalin 75 mg capsule 75 mg PO TID 03/08/22 03/08/22 History zolpidem 10 mg tablet 10 mg PO HS PRN Sleep 03/08/22 03/08/22 History Patient History Medical History Acidosis, lactic Acute dehydration 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 No issues per anesthesia postop progress note. Anemia Cellulitis Chronic back pain Depression Diabetic peripheral neuropathy DM2 (diabetes mellitus, type 2) IDDM, A1c 07/2021-11% Gastritis Gastroenteritis GIB (gastrointestinal bleeding) History of amputation of great toe Hyperlipidemia Insulin dependent diabetes mellitus Iron deficiency anemia Nonobstructive atherosclerosis of coronary artery Numbness of lower extremity Peripheral neuropathy Right second toe ulcer Seizures Sepsis Surgical History History of cardiac cath done at [facility]; 09/22/19; LM - mild luminal irregularities. LAD - mid 20-30%, distal with myocardial bridge & 30% stenosis. L Cx - mild luminal irregularities. RCA - proximal <30% stenosis; mid/distal vessel mild plaques. PDA - mild luminal irregularities. History of esophagogastroduodenoscopy (EGD) History of right below knee amputation (12/22/21) Right Below Knee Amputation(Right) - Davon Good MD, FACS Family History Mother , age 63 Myocardial infarction Father , age 68 or 69 Myocardial infarction Brother S/P CABG (coronary artery bypass graft) Sister Myocardial infarction x 3; she is 57yo Social History Smoking Status: Current every day smoker Tobacco Type: Cigarettes packs per day: 0.5; Years Smoked: 20; Cigarettes Per Day: 20; Second Hand Exposure: No; Hx Alcohol Use: No Hx Substance Use: Yes Prescribed Medications: Marijuana Last Used Substance: Days (ago) Last Used Substance Other:: 2 days ago Substance Use Type Other:: medical marijuana Preferred Language: [place] Communication Ability: Effective Visual Impairment: No Limitations Hearing Ability: Normal Accounting Practice Manager Required: No Beliefs That Will Affect Care: None marital status: Current Living Situation: Spouse current occupational status: unemployed 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 other: raising a grandchild as well; lives in [place] Feels Safe at Home: Yes during the past year weight has: remained stable Assistive Devices: Walker and Wheelchair Review of Systems Review of Systems: All systems reviewed & are unremarkable except as noted in HPI & below Physical Exam Constitutional: WD/WN, vitals as above Eyes: PERRL, conjunctivae normal, anicteric sclerae Respiratory: normal respiratory effort, lungs clear to auscultation Cardiovascular: Rate/Rhythm: regular rate and regular rhythm Pedal pulses palpable to left foot. PROPERTY APPRAISER wnl Skin: Focused Exam: Wound location:Left doot Wound base color and depth:Full thickness into subcutaneous tissue Wound size (cm):left hallux 1 x 1 x 0.1 cm, plantar sub met 4 x 2 x 0.2cm Odor:no malodor Drainage:minimal serous Undermining:none Borders:fibrous with slough Neurologic: Loss of epicritic sensation to left foot. Psychiatric: Orientation: alert and oriented x 3 Results & Data ([facility]) Vital Signs (Past 12 Hours) Vital Signs Temp Pulse Resp BP Pulse Ox O2 Del Method 03/10/22 16:00 36.6 C 84 20 172/88 H 97 Room Air Diagnostic Findings X-ray: FINDINGS: Bones: There is no evidence for an acute fracture or dislocation. There is no lytic or blastic lesion. Joints: The joint spaces are maintained. The bones are in anatomic alignment. Soft tissues: There is no focal soft tissue abnormality. There is no radiopaque foreign body. IMPRESSION: 1. No acute osseous pathology. MRI: FINDINGS: There is skin marker along the plantar aspect of the MTP joints. Mild subcutaneous trace edema deep to the skin marker along the plantar surface of the forefoot. No loculated fluid collections to suggest an abscess. Normal marrow signal intensity seen throughout the visualized osseous structures. No fracture or dislocation. No erosive changes to suggest an osteomyelitis. The flexor and extensor tendons are normal in course, caliber, and signal intensity. There is also mild dorsal subcutaneous edema within the foot. The Lisfranc joint appears intact. No joint effusions. IMPRESSION: 1. No fracture or dislocation within the left foot. 2. Mild nonspecific subcutaneous edema. No loculated fluid collections to suggest an abscess. 3. No evidence for osteomyelitis.
[2022-03-10] MEDS: IBUPROFEN 200 MG TAB PO PRN (23:30)
[2022-03-11] MEDS: oxyCODONE/ACETAMINOPHEN 5mg/325mg TAB PO PRN ×3 (01:06→08:54)
[2022-03-11] MEDS: HYDROmorphone INJ 0.5 MG/0.5 ML SYR IV PRN ×3 (01:46→13:23)
[2022-03-11] MEDS: VANCOMYCIN HCL 1,000 MG in SODIUM CHLORIDE 0.9% 250 ML IV SCH ×3 (02:37→18:42)
[2022-03-11] MEDS: LORazepam 1 MG TAB PO PRN ×2 (05:00→18:41)
[2022-03-11] MEDS: PIPERACILLIN/TAZOBACTAM 3.375 GM in DEXTROSE 5% 100 ML IV SCH ×3 (05:00→20:27)
[2022-03-11] MEDS: METOCLOPRAMIDE HCL 5 MG TABLET PO SCH ×3 (07:04→17:58)
[2022-03-11] MEDS: COLLAGENASE OINT 30 GM TUBE EXT PRN (07:33)
[2022-03-11] MEDS: IBUPROFEN 200 MG TAB PO PRN ×2 (07:50→20:19)
[2022-03-11] MEDS: ASPIRIN 81 MG ECTAB PO SCH ×2 (08:54→20:18)
[2022-03-11] MEDS: CYCLOBENZAPRINE HCL 10 MG TAB PO SCH ×2 (08:54→20:18)
[2022-03-11] MEDS: PREGABALIN 75 MG CAP PO SCH ×3 (08:55→20:18)
[2022-03-11] MEDS: METOPROLOL SUCC 50MG EXT REL TAB PO SCH (08:57)
[2022-03-11] MEDS: HEPARIN SOD 5,000 UNIT/0.5 ML VIAL SQ SCH ×2 (08:57→20:20)
[2022-03-11] MEDS: PANTOprazole 40 MG TAB PO SCH ×2 (08:58→20:18)
[2022-03-11] MEDS: INSULIN ASPART PER UNIT SC SCH ×4 (09:05→20:37)
[2022-03-11] MEDS ORDERED: VANCOMYCIN LEVEL ONE (09:30)
[2022-03-11 09:52] LABS: Basophils # (auto) 0.07 K/uL (0-0.2); Basophils % (auto) 0.6 %; Eosinophils % (auto) 4.5 %; Hematocrit (blood only) 36.3 % (34.1-44.9); Immature Granulocytes # (auto) 0.03 K/uL (0.00-0.02); Immature Granulocytes % (auto) 0.3 %; Lymphocytes # (auto) 2.79 K/uL (1.2-3.4); Lymphocytes % (auto) 25.1 %; Mean Corpuscular Hemoglobin 22.7 pg (25.0-34.0); Mean Corpuscular Hgb Conc 30.3 g/dL (32.0-36.0); Mean Platelet Volume 9.5 fL (9.4-12.3); Monocytes # (auto) 0.94 K/uL (0.24-0.82); Monocytes % (auto) 8.5 %; Neutrophils # (auto) 6.78 K/uL (1.4-6.5); Platelet Count 320 K/uL (130-400); RDW Coefficient of Variation 15.1 % (11.5-14.5); RDW Standard Deviation 40.8 fL (36.4-46.3); Red Blood Count 4.84 M/uL (3.93-5.22); White Blood Count 11.11 K/ul (4.8-10.8)
[2022-03-11 10:18] LABS: BUN Creatinine Ratio 15.6 (10-20); Calcium 9.2 mg/dl (8.5-10.1); Creatinine Clr Calc Pharmacy 87.8 ml/min; Est GFR (African American) 114.8 ml/min; Est GFR (Non-African American) 99.1 ml/min; Magnesium 1.7 mg/dl (1.7-2.4); Potassium 3.6 mmol/L (3.5-5.1)
--- NOTE | 2022-03-11 10:39 | Pharmacy Report ---
Pharmacy Vanc AUC Short Note - Date of Service March 11, 2022 - Assessment & Plan Assessment * 56 year old F receiving VANCOMYCIN IV for treatment of L diabetic foot infection. * Pertinent microbiologic data includes: prior h/o MRSA and prevotella in R foot wound cx * Patient was hospitalized in the last 30 days for R BKA * MRI read as negative for osteo and negative for abscess * Of note, patient has h/o vancomycin infusion reaction (flushing), however tolerates vanco when infused at slower rates Plan Vancomycin * AUC/CELSO is the preferred PK/PD target for vancomycin * AUC guided dosing is effective and associated with decreased risk of nephrotoxicity compared to traditional trough targets * Trough level of 14.6 mcg/mL is predicted to achieve target AUC/CELSO of 400-600 mg/L.hr and may be associated with a 13 % risk of nephrotoxicity * Continue dose of 1000 mg IV every 8 hours * Trough level ordered for: 03/13/22 @ 0930 to confirm Vancomcyin remains within therapeutic range Pharmacy will continue to follow and will adjust dose/frequency as necessary. Thank you.
[2022-03-11] MEDS: oxyCODONE HCL IR 5 MG TAB (IMMEDIATE RELEASE) PO SCH ×5 (10:41→21:37)
[2022-03-11] MEDS: CARBOHYDRATES FOR HYPOGLYCEMIA PO PRN (12:32)
[2022-03-11] MEDS: ACETAMINOPHEN 325 MG TAB PO SCH ×3 (12:56→23:52)
[2022-03-11] MEDS ORDERED: PHARMACY GLYCEMIC MGMT CONSULT PRN (13:00)
--- NOTE | 2022-03-11 13:18 | Pharmacy Report ---
Pharmacy Glycemic Short Note 2 - Date of Service March 11, 2022 - Glycemic Short BSG Results (Last 24 hours): 03/10/22 03/10/22 03/11/22 17:16 20:31 08:16 Glucose POC Glucose 135 H 141 H 259 H 03/11/22 03/11/22 03/11/22 09:42 12:12 12:14 Glucose 153 H POC Glucose 69 L* 69 L* 03/11/22 12:50 Glucose POC Glucose 104 H OUTPATIENT ANTIDIABETIC REGIMEN: * Lantus 40 units SC HS * Novolog 7 units SC TIDM HbA1c ordered ASSESSMENT: * SI is a 56 year old female known to pharmacy glycemic service * Historically poorly controlled as an outpatient based on prior HbA1c levels * Patient admitted on 03/08/22 for IV antibiotic treatment of diabetic foot infection/cellulitis * Pharmacy consulted for glycemic management today (03/11/22) at lunchtime due to hypoglycemia * Current regimen is significantly more aggressive than prior insulin regimens for this patient while inpatient * Will scale back basal insulin significantly and loosen Novolog parameters as well * Vanco/Zosyn for left foot infection PLAN FOR INPATIENT GLYCEMIC CONTROL: * Basal insulin - decrease * Lantus 10-15 units SQ HS (see EHR for details) * Bolus insulin * NovoLog per scale ACHS or Q6hrs while NPO * Goal Range: Low 110 mg/dL - High 140 mg/dL * Correction Factor: 30 mg/dL/unit * Nutritional / Prandial insulin per carb ratio of 1 unit per 12 grams CHO consumed
--- NOTE | 2022-03-11 16:18 | Hospitalist Progress Note ---
Date of Service March 11, 2022 Assessment & Plan (1) Cellulitis of left foot: Plan: Patient presents with open, what appears to be pressure related area to her left great toe underside and across the ball of her feet. - no drainage noted and top layer of skin scabbed over - WBC elevated, afebrile - start on Zosyn and Vancomycin as she has history of MRSA - MRI of the left foot with and without contrast: no osteomyelitis noted. - She has 2+ pulses to lower foot and warm -inflammatory markers appear elelevated. - will consider NATHAN if healing remains slow -consulted podiatry for possible debridement of non viable tissue; Dr. Montaño is not available. Patient appears to be improving. Thankfully no signs of osteoMYELITIS S/P debridement: will monitor and discharge on Sunday, obtained cultures on 03/11 (2) History of right below knee amputation: Plan: Secondary to poor diabetic control and refractory osteo stump healing well, walks with walker (3) Anxiety: Plan: COntinue home anti-anxiety (4) Opioid dependence: Plan: Unfortunately will need to place on pain control medications for her foot infection as this is limiting her motion and weight bearing Placed oxycodone scheduled, and continue IV dilaudid (5) Hyperglycemia due to type 2 diabetes mellitus: Plan: Basal bolus insulin goal would be <180mg/dl (6) PAD (peripheral artery disease): Plan: Continue ASA and Statin Admission and Anticipated Discharge Date Admission Date: March 08, 2022 Subjective 56 yo female reports having signifcant pain in her foot post procedure. Patient is asking for increase in her medication. Review of Systems Review of Systems: All systems reviewed & are unremarkable except as noted in HPI & below Physical Exam Physical Exam: General: awake, alert, no apparent distress Head: Normocephalic, atraumatic ENT: PERRL, EOMI, no pharyngeal exudate, mucous membranes moist Neuro: AAO x 3, speech clear and appropriate, strength intact bilaterally 5/5- noting right BKA, sensation intact and equal all extremities and dermatomes, no pronator drift Chest: equal rise and fall of the chest, no accessory muscle use, no heaves or thrills, Clear to auscultation, on room air, Cardiac: Regular rate and rhythm, telemetry reviewed, skin warm dry, cap refill <3 seconds, peripheral pulses +2 no JVD, no murmur, no edema GI: NABS x 4 quadrants, soft, nontender to palpation, no rebound, guarding or tenderness : Spontaneously voiding, no pain, no CVA tenderness, Psych: Normal mood and affect Skin: erythema with pain to left foot, left metatarsal, and great toe. Pain with palpation to peroneus longus/brevis Results & Data Results & Data ([facility]) Vital Signs (Past 12 Hours) Vital Signs Temp Pulse Resp BP Pulse Ox O2 Del Method 03/11/22 15:36 36.8 C 86 18 177/92 H 99 Room Air 03/11/22 07:16 36.9 C 104 H 20 170/85 H 99 Room Air PG Care Time/CCT Total # of Minutes Spent Total Time Spent with Patient: Total time spent is greater than 50% in coordination of care (as documented) at patient's floor/unit and/or counseling patient: Coding Level of Care Code 45077 Subseq Hosp Care Lvl 3 Diagnoses Cellulitis of left foot L03.116 History of right below knee amputation Z89.511 Anxiety F41.9 Opioid dependence F11.20 Hyperglycemia due to type 2 diabetes mellitus E11.65; Z79.4 Diabetes mellitus long term care pharmacist insulin use: with long term care pharmacist use PAD (peripheral artery disease) I73.9 (1) Hyperglycemia due to type 2 diabetes mellitus Diabetes mellitus [facility] insulin use: with long term care pharmacist use Qualified Code(s): E11.65 - Type 2 diabetes mellitus with hyperglycemia; Z79.4 - alf (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
[2022-03-11] MEDS ORDERED: HYDROmorphone INJ 1 MG/ML SYRINGE IV STA (18:45)
[2022-03-11] MEDS: rOPINIRole HCL 2 MG TABLET PO SCH (20:18)
[2022-03-11] MEDS: ZOLPIDEM TARTRATE 10 MG TAB PO PRN (20:18)
[2022-03-11] MEDS: NORTRIPTYLINE HCL 25 MG CAP PO SCH (20:18)
[2022-03-11] MEDS: ONDANSETRON 4 MG OD TAB SL PRN (20:19)
[2022-03-11] MEDS ORDERED: HYDROmorphone INJ 0.5 MG/0.5 ML SYR IV STA (21:50)
[2022-03-12] MEDS: VANCOMYCIN HCL 1,000 MG in SODIUM CHLORIDE 0.9% 250 ML IV SCH ×3 (02:16→18:19)
[2022-03-12] MEDS: oxyCODONE HCL IR 5 MG TAB (IMMEDIATE RELEASE) PO SCH ×6 (02:20→22:33)
[2022-03-12] MEDS: PIPERACILLIN/TAZOBACTAM 3.375 GM in DEXTROSE 5% 100 ML IV SCH ×3 (04:50→21:02)
[2022-03-12] MEDS: LORazepam 1 MG TAB PO PRN (04:59)
[2022-03-12] MEDS: METOCLOPRAMIDE HCL 5 MG TABLET PO SCH ×3 (06:27→16:47)
[2022-03-12] MEDS: ACETAMINOPHEN 325 MG TAB PO SCH ×4 (06:28→23:44)
[2022-03-12 08:00] LABS: Creatinine Clr Calc Pharmacy 100.3 ml/min; Est GFR (Non-African American) 103.5 ml/min
[2022-03-12] MEDS: HEPARIN SOD 5,000 UNIT/0.5 ML VIAL SQ SCH ×2 (08:15→21:01)
[2022-03-12] MEDS: CYCLOBENZAPRINE HCL 10 MG TAB PO SCH ×2 (08:15→21:01)
[2022-03-12] MEDS: PREGABALIN 75 MG CAP PO SCH ×3 (08:15→21:01)
[2022-03-12] MEDS: ASPIRIN 81 MG ECTAB PO SCH ×2 (08:15→21:00)
[2022-03-12] MEDS: METOPROLOL SUCC 50MG EXT REL TAB PO SCH (08:16)
[2022-03-12] MEDS: HYDROmorphone INJ 0.5 MG/0.5 ML SYR IV PRN ×4 (08:16→21:01)
[2022-03-12] MEDS: PANTOprazole 40 MG TAB PO SCH ×2 (08:16→21:00)
[2022-03-12] MEDS: INSULIN ASPART PER UNIT SC SCH ×4 (08:45→21:09)
[2022-03-12] MEDS: COLLAGENASE OINT 30 GM TUBE EXT PRN (09:05)
--- NOTE | 2022-03-12 13:36 | Hospitalist Progress Note ---
Date of Service March 12, 2022 Assessment & Plan (1) Cellulitis of left foot: Plan: Patient presents with open, what appears to be pressure related area to her left great toe underside and across the ball of her feet. - no drainage noted and top layer of skin scabbed over - WBC elevated, afebrile - start on Zosyn and Vancomycin as she has history of MRSA - MRI of the left foot with and without contrast: no osteomyelitis noted. - She has 2+ pulses to lower foot and warm -inflammatory markers appear elelevated. - will consider NATHAN if healing remains slow -consulted podiatry for possible debridement of non viable tissue; Dr. Montaño is not available. Patient appears to be improving. Thankfully no signs of osteoMYELITIS S/P debridement: will monitor and discharge on Sunday, obtained cultures on 03/11 sent to lab on 03/12 awaiting results (2) History of right below knee amputation: Plan: Secondary to poor diabetic control and refractory osteo stump healing well, walks with walker (3) Anxiety: Plan: COntinue home anti-anxiety (4) Opioid dependence: Plan: Unfortunately will need to place on pain control medications for her foot infection as this is limiting her motion and weight bearing Placed oxycodone scheduled, and continue IV dilaudid (5) Hyperglycemia due to type 2 diabetes mellitus: Plan: Basal bolus insulin goal would be <180mg/dl (6) PAD (peripheral artery disease): Plan: Continue ASA and Statin Admission and Anticipated Discharge Date Admission Date: March 08, 2022 Subjective Patient continues to complain of pain in the foot. Review of Systems Review of Systems: All systems reviewed & are unremarkable except as noted in HPI & below Physical Exam Physical Exam: General: awake, alert, no apparent distress Head: Normocephalic, atraumatic ENT: PERRL, EOMI, no pharyngeal exudate, mucous membranes moist Neuro: AAO x 3, speech clear and appropriate, strength intact bilaterally 5/5- noting right BKA, sensation intact and equal all extremities and dermatomes, no pronator drift Chest: equal rise and fall of the chest, no accessory muscle use, no heaves or thrills, Clear to auscultation, on room air, Cardiac: Regular rate and rhythm, telemetry reviewed, skin warm dry, cap refill <3 seconds, peripheral pulses +2 no JVD, no murmur, no edema GI: NABS x 4 quadrants, soft, nontender to palpation, no rebound, guarding or tenderness : Spontaneously voiding, no pain, no CVA tenderness, Psych: Normal mood and affect Skin: erythema with pain to left foot, left metatarsal, and great toe. Pain with palpation to peroneus longus/brevis Results & Data Results & Data ([facility]) Vital Signs (Past 12 Hours) Vital Signs Temp Pulse Resp BP BP Pulse Ox O2 Del Method 03/12/22 13:14 147/69 H 03/12/22 07:25 36.7 C 93 H 18 180/88 H 94 Room Air PG Care Time/CCT Total # of Minutes Spent Total Time Spent with Patient: Total time spent is greater than 50% in coordination of care (as documented) at patient's floor/unit and/or counseling patient: Coding Level of Care Code 75811 Subseq Hosp Care Lvl 2 Diagnoses Cellulitis of left foot L03.116 History of right below knee amputation Z89.511 Anxiety F41.9 Opioid dependence F11.20 Hyperglycemia due to type 2 diabetes mellitus E11.65; Z79.4 Diabetes mellitus surgical instrument technician insulin use: with surgical instrument technician use PAD (peripheral artery disease) I73.9 (1) Hyperglycemia due to type 2 diabetes mellitus Diabetes mellitus surgical instrument technician insulin use: with surgical instrument technician use Qualified Code(s): E11.65 - Type 2 diabetes mellitus with hyperglycemia; Z79.4 - wrapper stitcher (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
[2022-03-12] MEDS: rOPINIRole HCL 2 MG TABLET PO SCH (21:00)
[2022-03-12] MEDS: ZOLPIDEM TARTRATE 10 MG TAB PO PRN (21:01)
[2022-03-12] MEDS: NORTRIPTYLINE HCL 25 MG CAP PO SCH (21:07)
[2022-03-12] MEDS: LANTUS PER UNIT CHARGE SQ SCH (22:09)
[2022-03-12] MEDS ORDERED: HYDROmorphone INJ 1 MG/ML SYRINGE IV STA (23:33)
[2022-03-13] MEDS: VANCOMYCIN HCL 1,000 MG in SODIUM CHLORIDE 0.9% 250 ML IV SCH (02:11)
[2022-03-13] MEDS: oxyCODONE HCL IR 5 MG TAB (IMMEDIATE RELEASE) PO SCH ×5 (02:12→17:48)
[2022-03-13] MEDS: PIPERACILLIN/TAZOBACTAM 3.375 GM in DEXTROSE 5% 100 ML IV SCH ×3 (04:18→20:53)
[2022-03-13] MEDS: HYDROmorphone INJ 0.5 MG/0.5 ML SYR IV PRN ×5 (04:23→21:02)
[2022-03-13] MEDS: ACETAMINOPHEN 325 MG TAB PO SCH ×3 (05:41→17:44)
--- NOTE | 2022-03-13 06:47 | Orthopedic Progress Note ---
Date of Service March 13, 2022 Assessment & Plan (1) Diabetic foot ulcer: Plan: Patient seen, evaluated, and treated. Discussed need for off loading shoes with custom molded inserts at all time during weight bearing. Discouraged barefoot or bedroom slipper use when standing, arising from a seated position, or attempted ambulation. Discussed recent diarrhea and frequency to bathroom. Patient may be experiencing recent diarrhea from Abx. I did try to reinforce when she steps down on her foot she prevents wounds from healing and is causation of wounds. I did discuss this with Patient who did not seem receptive "do you want me to fly across from to use bathroom?" Ideally Patient would be completely non weight bearing to Left foot. I also discussed reported pain to foot. Wounds are present due to neuropathy and loss of protective sensation. During our conservation Patient did become more focused on her Pain which was not controlled and not being addressed. Reviewed history of Patient who is at severe risk for loss of limb. X-rays & MRI negative for osseous involvement. Erythema has reduced in foot. Applied Santyl collagenase dressing changes. Thank you for involving me in the care of this Patient. I will continue to follow while in house. (2) Cellulitis: (3) Cellulitis of left foot: Admission and Anticipated Discharge Date Admission Date: March 08, 2022 Subjective Patient seen at bedside. She notes development of diarrhea causing her to frequently weight bear to bathroom. Patient is neuropathic and does not have protective sensation to left foot. She is in no distress. She is seen for left foot wounds that have developed secondary to weight bearing forces. She utilizes bedroom slipper rather than off loading Diabetic shoe with accommodative functional custom molded orthotic. Patient relates her daughter initially notice wounds and Patient can not feel her foot, although continues to complain of pain in the foot. Patient has removed dressing. Review of Systems Review of Systems: All systems reviewed & are unremarkable except as noted in HPI & below Physical Exam Constitutional: WD/WN, vitals as above Eyes: PERRL, conjunctivae normal, anicteric sclerae Respiratory: normal respiratory effort, lungs clear to auscultation Cardiovascular: Rate/Rhythm: regular rate and regular rhythm Skin: Focused Exam: Wound location:Left doot Wound base color and depth:Full thickness into subcutaneous tissue Wound size (cm):left hallux 1 x 1 x 0.1 cm, plantar sub met 4 x 2 x 0.2cm Odor:no malodor Drainage:minimal serous Undermining:none Borders:fibrous with slough Psychiatric: Orientation: alert and oriented x 3 Results & Data ([facility]) Vital Signs (Past 12 Hours) Vital Signs Temp Pulse Resp BP Pulse Ox O2 Del Method 03/12/22 23:04 36.9 C 88 20 184/76 H 95 Room Air
[2022-03-13 06:48] LABS: Estimated Average Glucose 203 mg/dl; Hemoglobin A1C 8.7 % (4.5-5.6)
[2022-03-13] MEDS: LORazepam 1 MG TAB PO PRN (07:39)
[2022-03-13 07:40] LABS: Hematocrit (blood only) 35.1 % (34.1-44.9); Hemoglobin 10.6 g/dl (12.0-16.0); Mean Corpuscular Hemoglobin 22.8 pg (25.0-34.0); Mean Corpuscular Hgb Conc 30.2 g/dL (32.0-36.0); Mean Corpuscular Volume 75.6 fL (80.0-100.0); Mean Platelet Volume 9.5 fL (9.4-12.3); Platelet Count 304 K/uL (130-400); RDW Coefficient of Variation 15.2 % (11.5-14.5); RDW Standard Deviation 41.4 fL (36.4-46.3); Red Blood Count 4.64 M/uL (3.93-5.22); White Blood Count 10.96 K/ul (4.8-10.8)
[2022-03-13 08:01] LABS: C Reactive Protein 5.75 mg/dl (0-0.5); Calcium 8.9 mg/dl (8.5-10.1); Creatinine Clr Calc Pharmacy 112.4 ml/min; Est GFR (African American) 124.5 ml/min; Est GFR (Non-African American) 107.4 ml/min; Potassium 3.7 mmol/L (3.5-5.1)
[2022-03-13] MEDS ORDERED: LANTUS PER UNIT CHARGE SQ ONE (08:30)
[2022-03-13] MEDS: METOCLOPRAMIDE HCL 5 MG TABLET PO SCH ×3 (08:41→17:49)
[2022-03-13] MEDS: HEPARIN SOD 5,000 UNIT/0.5 ML VIAL SQ SCH ×2 (08:41→20:55)
[2022-03-13] MEDS: PANTOprazole 40 MG TAB PO SCH ×2 (08:42→20:57)
[2022-03-13] MEDS: ASPIRIN 81 MG ECTAB PO SCH ×2 (08:42→20:54)
[2022-03-13] MEDS: METOPROLOL SUCC 50MG EXT REL TAB PO SCH (08:42)
[2022-03-13] MEDS: INSULIN ASPART PER UNIT SC SCH ×4 (08:45→21:07)
[2022-03-13] MEDS: CYCLOBENZAPRINE HCL 10 MG TAB PO SCH ×2 (09:01→20:46)
[2022-03-13] MEDS: PREGABALIN 75 MG CAP PO SCH ×3 (09:01→21:13)
[2022-03-13] MEDS: VANCOMYCIN HCL 1,250 MG in SODIUM CHLORIDE 0.9% 250 ML IV SCH ×2 (09:10→17:39)
[2022-03-13] MEDS ORDERED: VANCOMYCIN LEVEL ONE (09:30)
[2022-03-13] MEDS: COLLAGENASE OINT 30 GM TUBE EXT PRN (10:54)
--- NOTE | 2022-03-13 11:12 | Pharmacy Report ---
Pharmacy PK ABX Note - Date of Service March 13, 2022 - Assessment and Plan Assessment * 56 year old F receiving VANCOMYCIN IV for treatment of L diabetic foot infection. 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 This is predicted to achieve target AUC/CELSO of 400-600 mg/L.hr * Predicted AUC at steady state: 443 mg/L.hr, will adjust dosing today to increase probability of achieving AUC/CELSO target * Change to 1250 mg IV every 8 hours * Will repeat level in the next 48-72 hours if therapy is continued and/or change in patient clinical status Pharmacy will continue to follow and will adjust dose/frequency as necessary. Thank you. Pharmacy has transitioned to AUC monitoring for vancomycin. AUC/CELSO is the preferred PK/PD target and is associated with decreased risk of nephrotoxicity compared to traditional trough targets.
--- NOTE | 2022-03-13 11:22 | Pharmacy Report ---
Pharmacy Glycemic Short Note 2 - Date of Service March 13, 2022 - Glycemic Short BSG Results (Last 24 hours): 03/12/22 03/12/22 03/12/22 12:12 17:13 20:37 Glucose POC Glucose 93 87 107 H 03/13/22 03/13/22 07:24 08:11 Glucose 159 H POC Glucose 156 H OUTPATIENT ANTIDIABETIC REGIMEN: * Lantus 40 units SC HS * Novolog 7 units SC TIDM HbA1c 8.7% (03/12/22) ASSESSMENT: 03/13/22 * BSGs well-controlled yesterday with bolus insulin only (8 units) * Fasting BSG of 156 mg/dL this morning - will give low-dose basal today * Continue loosened Novolog parameters * Continues on vancomycin and Zosyn 03/11/22 * SI is a 56 year old female known to pharmacy glycemic service * Historically poorly controlled as an outpatient based on prior HbA1c levels * Patient admitted on 03/08/22 for IV antibiotic treatment of diabetic foot infection/cellulitis * Pharmacy consulted for glycemic management today (03/11/22) at lunchtime due to hypoglycemia * Current regimen is significantly more aggressive than prior insulin regimens for this patient while inpatient * Will scale back basal insulin significantly and loosen Novolog parameters as well * Vanco/Zosyn for left foot infection PLAN FOR INPATIENT GLYCEMIC CONTROL: * Basal insulin * Lantus 5 units SC daily * Lantus 0-5 units SC HS (see EHR for details) * Bolus insulin * NovoLog per scale ACHS or Q6hrs while NPO * Goal Range: Low 110 mg/dL - High 140 mg/dL * Correction Factor: 35 mg/dL/unit * Nutritional / Prandial insulin per carb ratio of 1 unit per 12 grams CHO consumed
[2022-03-13] MEDS: ONDANSETRON 4 MG OD TAB SL PRN (12:20)
--- NOTE | 2022-03-13 16:26 | Hospitalist Progress Note ---
Date of Service March 13, 2022 Assessment & Plan (1) Cellulitis of left foot: Plan: Patient presents with open, what appears to be pressure related area to her left great toe underside and across the ball of her feet. - no drainage noted and top layer of skin scabbed over - WBC elevated, afebrile - start on Zosyn and Vancomycin as she has history of MRSA - MRI of the left foot with and without contrast: no osteomyelitis noted. - She has 2+ pulses to lower foot and warm -inflammatory markers appear elelevated. - will consider NATHAN if healing remains slow -consulted podiatry for possible debridement of non viable tissue; Dr. Montaño is not available. Patient appears to be improving. Thankfully no signs of osteoMYELITIS S/P debridement: will monitor and discharge on Sunday, obtained cultures on 03/11 sent to lab on 03/12 growing staph species on 03/13 Due to diarrhea, will order c diff. increase pain medicine to dilaudid to 1 mg (2) History of right below knee amputation: Plan: Secondary to poor diabetic control and refractory osteo stump healing well, walks with walker (3) Anxiety: Plan: COntinue home anti-anxiety (4) Opioid dependence: Plan: Unfortunately will need to place on pain control medications for her foot infection as this is limiting her motion and weight bearing Placed oxycodone scheduled, and continue IV dilaudid (5) Hyperglycemia due to type 2 diabetes mellitus: Plan: Basal bolus insulin goal would be <180mg/dl (6) PAD (peripheral artery disease): Plan: Continue ASA and Statin Admission and Anticipated Discharge Date Admission Date: March 08, 2022 Subjective 56 yo female continues to have pain. She is now complaining of diarrhea. Patient reports hvaing multple episodes of lose stools today. Review of Systems Review of Systems: All systems reviewed & are unremarkable except as noted in HPI & below Physical Exam Physical Exam: General: awake, alert, no apparent distress Head: Normocephalic, atraumatic ENT: PERRL, EOMI, no pharyngeal exudate, mucous membranes moist Neuro: AAO x 3, speech clear and appropriate, strength intact bilaterally 5/5- noting right BKA, sensation intact and equal all extremities and dermatomes, no pronator drift Chest: equal rise and fall of the chest, no accessory muscle use, no heaves or thrills, Clear to auscultation, on room air, Cardiac: Regular rate and rhythm, telemetry reviewed, skin warm dry, cap refill <3 seconds, peripheral pulses +2 no JVD, no murmur, no edema GI: NABS x 4 quadrants, soft, nontender to palpation, no rebound, guarding or tenderness : Spontaneously voiding, no pain, no CVA tenderness, Psych: Normal mood and affect Skin: erythema with pain to left foot, left metatarsal, and great toe. Pain with palpation to peroneus longus/brevis Results & Data Results & Data ([facility]) Vital Signs (Past 12 Hours) Vital Signs Temp Pulse Resp BP Pulse Ox O2 Del Method 03/13/22 08:06 37.3 C 108 H 22 161/74 H 94 Room Air PG Care Time/CCT Total # of Minutes Spent Total Time Spent with Patient: Total time spent is greater than 50% in coordination of care (as documented) at patient's floor/unit and/or counseling patient: Coding Level of Care Code 39748 Subseq Hosp Care Lvl 2 Diagnoses Cellulitis of left foot L03.116 History of right below knee amputation Z89.511 Anxiety F41.9 Opioid dependence F11.20 Hyperglycemia due to type 2 diabetes mellitus E11.65; Z79.4 Diabetes mellitus [employer]ier insulin use: with [facility] use PAD (peripheral artery disease) I73.9 (1) Hyperglycemia due to type 2 diabetes mellitus Diabetes mellitus [facility] insulin use: with [facility] use Qualified Code(s): E11.65 - Type 2 diabetes mellitus with hyperglycemia; Z79.4 - custodial (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
[2022-03-13] MEDS: NORTRIPTYLINE HCL 25 MG CAP PO SCH (20:56)
[2022-03-13] MEDS: rOPINIRole HCL 2 MG TABLET PO SCH (20:58)
[2022-03-13] MEDS: LANTUS PER UNIT CHARGE SQ SCH (21:08)
[2022-03-13] MEDS: ZOLPIDEM TARTRATE 10 MG TAB PO PRN (21:25)
[2022-03-13 22:32] LABS: Cdiff Antigen Positive; Cdiff Toxin A+B Negative Cdiff Toxin (Negative)
[2022-03-14] MEDS: ACETAMINOPHEN 325 MG TAB PO SCH ×5 (01:02→23:31)
[2022-03-14] MEDS: oxyCODONE HCL IR 5 MG TAB (IMMEDIATE RELEASE) PO SCH ×6 (01:02→20:49)
[2022-03-14] MEDS: VANCOMYCIN HCL 1,250 MG in SODIUM CHLORIDE 0.9% 250 ML IV SCH ×3 (01:03→17:51)
[2022-03-14] MEDS: HYDROmorphone INJ 0.5 MG/0.5 ML SYR IV PRN ×6 (03:06→23:32)
[2022-03-14] MEDS: PIPERACILLIN/TAZOBACTAM 3.375 GM in DEXTROSE 5% 100 ML IV SCH ×2 (03:11→12:13)
[2022-03-14] MEDS: COLLAGENASE OINT 30 GM TUBE EXT PRN ×2 (03:17→10:46)
[2022-03-14] MEDS: LORazepam 1 MG TAB PO PRN (03:25)
[2022-03-14] MEDS: CYCLOBENZAPRINE HCL 10 MG TAB PO SCH ×3 (05:02→20:47)
[2022-03-14 06:57] LABS: Hemoglobin 10.3 g/dl (12.0-16.0); Mean Corpuscular Hemoglobin 22.5 pg (25.0-34.0); Mean Corpuscular Hgb Conc 30.3 g/dL (32.0-36.0); Mean Corpuscular Volume 74.4 fL (80.0-100.0); Mean Platelet Volume 10.1 fL (9.4-12.3); Platelet Count 271 K/uL (130-400); RDW Coefficient of Variation 15.3 % (11.5-14.5); RDW Standard Deviation 41.1 fL (36.4-46.3); Red Blood Count 4.57 M/uL (3.93-5.22); White Blood Count 10.55 K/ul (4.8-10.8)
[2022-03-14 07:20] LABS: BUN Creatinine Ratio 13.2 (10-20); Calcium 9.2 mg/dl (8.5-10.1); Est GFR (African American) 122.2 ml/min; Est GFR (Non-African American) 105.4 ml/min; Potassium 3.8 mmol/L (3.5-5.1)
[2022-03-14] MEDS: METOCLOPRAMIDE HCL 5 MG TABLET PO SCH ×3 (07:39→16:23)
[2022-03-14] MEDS: PREGABALIN 75 MG CAP PO SCH ×3 (08:54→20:47)
[2022-03-14] MEDS: ASPIRIN 81 MG ECTAB PO SCH ×2 (08:54→19:46)
[2022-03-14] MEDS: PANTOprazole 40 MG TAB PO SCH ×2 (08:55→19:45)
[2022-03-14] MEDS: METOPROLOL SUCC 50MG EXT REL TAB PO SCH (08:55)
[2022-03-14] MEDS: HEPARIN SOD 5,000 UNIT/0.5 ML VIAL SQ SCH ×2 (08:55→20:47)
[2022-03-14] MEDS: INSULIN ASPART PER UNIT SC SCH ×4 (09:05→20:44)
--- NOTE | 2022-03-14 17:59 | Hospitalist Progress Note ---
Date of Service March 14, 2022 Assessment & Plan (1) Cellulitis of left foot: Plan: Patient presents with open, what appears to be pressure related area to her left great toe underside and across the ball of her feet. - no drainage noted and top layer of skin scabbed over - WBC elevated, afebrile - start on Zosyn and Vancomycin as she has history of MRSA - MRI of the left foot with and without contrast: no osteomyelitis noted. - She has 2+ pulses to lower foot and warm -inflammatory markers appear elelevated. - will consider NATHAN if healing remains slow -consulted podiatry for possible debridement of non viable tissue; Dr. Montaño is not available. Patient appears to be improving. Thankfully no signs of osteoMYELITIS S/P debridement: will monitor and discharge on Sunday, obtained cultures on 03/11 sent to lab on 03/12 growing staph species on 03/13 Due to diarrhea, will order c diff. increase pain medicine to dilaudid to 1 mg Patient reports her pain is better controlled on 03/14/22. Patient's antibiotics were switched to oral form and will cover MRSA and strep as cultured grew MRSA. Concern over how patient tolerates these antibiotics as she has allergies to penicillins. (2) History of right below knee amputation: Plan: Secondary to poor diabetic control and refractory osteo stump healing well, walks with walker (3) Anxiety: Plan: COntinue home anti-anxiety (4) Opioid dependence: Plan: Unfortunately will need to place on pain control medications for her foot infection as this is limiting her motion and weight bearing Placed oxycodone scheduled, and continue IV dilaudid (5) Hyperglycemia due to type 2 diabetes mellitus: Plan: Basal bolus insulin goal would be <180mg/dl (6) PAD (peripheral artery disease): Plan: Continue ASA and Statin Admission and Anticipated Discharge Date Admission Date: March 08, 2022 Subjective 56 yo female reports feeling better. Patient states her diarrhea has improved. Review of Systems Review of Systems: All systems reviewed & are unremarkable except as noted in HPI & below Physical Exam Physical Exam: General: awake, alert, no apparent distress Head: Normocephalic, atraumatic ENT: PERRL, EOMI, no pharyngeal exudate, mucous membranes moist Neuro: AAO x 3, speech clear and appropriate, strength intact bilaterally 5/5- noting right BKA, sensation intact and equal all extremities and dermatomes, no pronator drift Chest: equal rise and fall of the chest, no accessory muscle use, no heaves or thrills, Clear to auscultation, on room air, Cardiac: Regular rate and rhythm, telemetry reviewed, skin warm dry, cap refill <3 seconds, peripheral pulses +2 no JVD, no murmur, no edema GI: NABS x 4 quadrants, soft, nontender to palpation, no rebound, guarding or tenderness : Spontaneously voiding, no pain, no CVA tenderness, Psych: Normal mood and affect Skin: erythema with pain to left foot, left metatarsal, and great toe. Results & Data Results & Data ([facility]) Vital Signs (Past 12 Hours) Vital Signs Temp Pulse Resp BP BP Pulse Ox O2 Del Method 03/14/22 15:16 36.6 C 82 18 148/72 H 97 Room Air 03/14/22 12:30 182/90 H 03/14/22 12:26 192/99 H 03/14/22 12:24 179/84 H 03/14/22 08:19 36.8 C 91 H 16 186/83 H 188/74 H 92 Room Air PG Care Time/CCT Total # of Minutes Spent Total Time Spent with Patient: Total time spent is greater than 50% in coordination of care (as documented) at patient's floor/unit and/or counseling patient: Coding Level of Care Code 49076 Subseq Hosp Care Lvl 2 Diagnoses Cellulitis of left foot L03.116 History of right below knee amputation Z89.511 Anxiety F41.9 Opioid dependence F11.20 Hyperglycemia due to type 2 diabetes mellitus E11.65; Z79.4 Diabetes mellitus jail insulin 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
[2022-03-14] MEDS: rOPINIRole HCL 2 MG TABLET PO SCH (19:45)
[2022-03-14] MEDS: NORTRIPTYLINE HCL 25 MG CAP PO SCH (19:45)
[2022-03-14] MEDS: ZOLPIDEM TARTRATE 10 MG TAB PO PRN (19:45)
[2022-03-14] MEDS: LANTUS PER UNIT CHARGE SQ SCH (20:44)
[2022-03-14] MEDS: DOXYCYCLINE HYCLATE 100 MG CAP PO SCH (20:46)
[2022-03-14] MEDS: cephALEXin 500 MG CAP PO SCH (20:47)
[2022-03-14] MEDS ORDERED: diphenhydrAMINE Capsule 25 MG CAP PO ONE (21:01)
[2022-03-15] MEDS ORDERED: METOPROLOL SUCC 50MG EXT REL TAB PO STA (00:04)
[2022-03-15] MEDS: oxyCODONE HCL IR 5 MG TAB (IMMEDIATE RELEASE) PO SCH ×6 (01:30→22:10)
[2022-03-15] MEDS: HYDROmorphone INJ 0.5 MG/0.5 ML SYR IV PRN ×5 (04:21→20:27)
[2022-03-15] MEDS: ACETAMINOPHEN 325 MG TAB PO SCH ×3 (05:52→18:14)
[2022-03-15] MEDS ORDERED: LANTUS PER UNIT CHARGE SQ STA (08:21)
[2022-03-15] MEDS: CYCLOBENZAPRINE HCL 10 MG TAB PO SCH ×4 (08:27→22:16)
[2022-03-15] MEDS: LORazepam 1 MG TAB PO PRN ×2 (08:27→20:27)
[2022-03-15] MEDS: METOPROLOL SUCC 50MG EXT REL TAB PO SCH (08:28)
[2022-03-15] MEDS: cephALEXin 500 MG CAP PO SCH ×4 (08:29→20:28)
[2022-03-15] MEDS: DOXYCYCLINE HYCLATE 100 MG CAP PO SCH ×2 (08:29→20:30)
[2022-03-15] MEDS: PANTOprazole 40 MG TAB PO SCH ×2 (08:29→20:29)
[2022-03-15] MEDS: METOCLOPRAMIDE HCL 5 MG TABLET PO SCH ×3 (08:29→16:44)
[2022-03-15] MEDS: ASPIRIN 81 MG ECTAB PO SCH ×2 (08:30→20:29)
[2022-03-15] MEDS: HEPARIN SOD 5,000 UNIT/0.5 ML VIAL SQ SCH ×2 (08:30→20:31)
[2022-03-15] MEDS ORDERED: VANCOMYCIN TROUGH LEVEL ONE (08:30)
[2022-03-15] MEDS: COLLAGENASE OINT 30 GM TUBE EXT PRN (08:30)
[2022-03-15] MEDS: PREGABALIN 75 MG CAP PO SCH ×3 (08:39→20:28)
[2022-03-15] MEDS ORDERED: diphenhydrAMINE Capsule 25 MG CAP PO ONE (08:57)
--- NOTE | 2022-03-15 09:01 | Pharmacy Report ---
Pharmacy Glycemic Short Note 2 - Date of Service March 15, 2022 - Glycemic Short BSG Results (Last 24 hours): 03/14/22 03/14/22 03/14/22 11:52 16:56 20:27 POC Glucose 144 H 182 H 159 H 03/15/22 07:57 POC Glucose 209 H OUTPATIENT ANTIDIABETIC REGIMEN: * Lantus 40 units SC HS * Novolog 7 units SC TIDM * HbA1c = 8.7% (03/12/22) ASSESSMENT: 03/15: * Mariana received a total of 6 units of insulin yesterday (all bolus). BSGs were: [phone] mg/dL. All above goal but acceptable. * Fasting BSG increased to 209 mg/dL this AM. Likely due to prolonged absence of basal insulin. Will give 5 units of Lantus this morning and adjust HS scale tonight, if needed. * Did tighten correction factor slightly this AM to help bring BSGs into goal range. Of note, patient's appetite did seem to be improved yesterday. 03/13: * BSGs well-controlled yesterday with bolus insulin only (8 units) * Fasting BSG of 156 mg/dL this morning - will give low-dose basal today * Continue loosened Novolog parameters * Continues on vancomycin and Zosyn 03/11: * SI is a 56 year old female known to pharmacy glycemic service * Historically poorly controlled as an outpatient based on prior HbA1c levels * Patient admitted on 03/08/22 for IV antibiotic treatment of diabetic foot infection/cellulitis * Pharmacy consulted for glycemic management today (03/11/22) at lunchtime due to hypoglycemia * Current regimen is significantly more aggressive than prior insulin regimens for this patient while inpatient * Will scale back basal insulin significantly and loosen Novolog parameters as well * Vanco/Zosyn for left foot infection PLAN FOR INPATIENT GLYCEMIC CONTROL: * Basal insulin * Lantus 5 units SC x 1 this AM * Lantus 0-5 units SC HS (see EHR for details) * Bolus insulin * NovoLog per scale ACHS or Q6hrs while NPO * Goal Range: Low 110 mg/dL - High 140 mg/dL * Correction Factor: 30 mg/dL/unit * Nutritional / Prandial insulin per carb ratio of 1 unit per 12 grams CHO consumed
[2022-03-15] MEDS: INSULIN ASPART PER UNIT SC SCH ×4 (09:55→22:10)
[2022-03-15 10:07] LABS: Hemoglobin 10.9 g/dl (12.0-16.0); Mean Corpuscular Hemoglobin 22.6 pg (25.0-34.0); Mean Corpuscular Hgb Conc 30.3 g/dL (32.0-36.0); Mean Corpuscular Volume 74.5 fL (80.0-100.0); Mean Platelet Volume 9.6 fL (9.4-12.3); Platelet Count 280 K/uL (130-400); RDW Coefficient of Variation 15.3 % (11.5-14.5); RDW Standard Deviation 40.8 fL (36.4-46.3); Red Blood Count 4.83 M/uL (3.93-5.22); White Blood Count 9.76 K/ul (4.8-10.8)
[2022-03-15 10:28] LABS: BUN Creatinine Ratio 20.4 (10-20); Calcium 9.5 mg/dl (8.5-10.1); Creatinine Clr Calc Pharmacy 114.7 ml/min; Est GFR (African American) 125.3 ml/min; Est GFR (Non-African American) 108.2 ml/min; Potassium 3.8 mmol/L (3.5-5.1)
[2022-03-15] MEDS: ONDANSETRON 4 MG OD TAB SL PRN (12:29)
[2022-03-15] MEDS ORDERED: lisinopril 10 MG TAB PO ONE (15:33)
[2022-03-15] MEDS: ZOLPIDEM TARTRATE 10 MG TAB PO PRN (20:28)
[2022-03-15] MEDS: rOPINIRole HCL 2 MG TABLET PO SCH (20:29)
[2022-03-15] MEDS: NORTRIPTYLINE HCL 25 MG CAP PO SCH (20:30)
--- NOTE | 2022-03-15 21:48 | Hospitalist Progress Note ---
Date of Service March 15, 2022 Assessment & Plan (1) Cellulitis of left foot: Plan: Pressure ulcer of L foot and toe, stage 2 in a diabetic patient Patient presents with open, what appears to be pressure related area to her left great toe underside and across the ball of her feet. - no drainage noted and top layer of skin scabbed over - WBC elevated, afebrile - start on Zosyn and Vancomycin as she has history of MRSA - MRI of the left foot with and without contrast: no osteomyelitis noted. - She has 2+ pulses to lower foot and warm -inflammatory markers appear elelevated. - will consider NATHAN if healing remains slow -consulted podiatry for possible debridement of non viable tissue; Dr. Montaño is not available. Patient appears to be improving. Thankfully no signs of osteoMYELITIS S/P debridement: will monitor and discharge on Sunday, obtained cultures on 03/11 sent to lab on 03/12 growing staph species on 03/13 Due to diarrhea, will order c diff. increase pain medicine to dilaudid to 1 mg Patient reports her pain is better controlled on 03/14/22 and 03/15/22 Patient's antibiotics were switched to oral form and will cover MRSA and strep as cultured grew MRSA. Concern over how patient tolerates these antibiotics as she has allergies to penicillins. Discharge held due to elevated blood pressure. will hold off discharge on 03/15/22 Added one time dose of lisinopril inn the afternoon on 03/16 Tthis will likely need to be continued the following day, ordered in the PM as well as perhaps adding 2.5 mg of amlodipine in the afternoon/evening regimen. (2) History of right below knee amputation: Plan: Secondary to poor diabetic control and refractory osteo stump healing well, walks with walker (3) Anxiety: Plan: COntinue home anti-anxiety (4) Opioid dependence: Plan: Unfortunately will need to place on pain control medications for her foot infection as this is limiting her motion and weight bearing Placed oxycodone scheduled, and continue IV dilaudid (5) Hyperglycemia due to type 2 diabetes mellitus: Plan: Basal bolus insulin goal would be <180mg/dl (6) PAD (peripheral artery disease): Plan: Continue ASA and Statin Admission and Anticipated Discharge Date Admission Date: March 08, 2022 Subjective 56 yo female, reports her pain is better controlled. Patent has no new complaints. Review of Systems Review of Systems: All systems reviewed & are unremarkable except as noted in HPI & below Physical Exam Physical Exam: General: awake, alert, no apparent distress Head: Normocephalic, atraumatic ENT: PERRL, EOMI, no pharyngeal exudate, mucous membranes moist Neuro: AAO x 3, speech clear and appropriate, strength intact bilaterally 5/5- noting right BKA, sensation intact and equal all extremities and dermatomes, no pronator drift Chest: equal rise and fall of the chest, no accessory muscle use, no heaves or thrills, Clear to auscultation, on room air, Cardiac: Regular rate and rhythm, telemetry reviewed, skin warm dry, cap refill <3 seconds, peripheral pulses +2 no JVD, no murmur, no edema GI: NABS x 4 quadrants, soft, nontender to palpation, no rebound, guarding or tenderness : Spontaneously voiding, no pain, no CVA tenderness, Psych: Normal mood and affect Skin: erythema with pain to left foot, left metatarsal, and great toe. Results & Data Results & Data ([facility]) Vital Signs (Past 12 Hours) Vital Signs Temp Pulse Resp BP BP Pulse Ox O2 Del Method 03/15/22 20:51 36.8 C 82 18 157/76 H 93 Room Air 03/15/22 15:44 37.0 C 82 16 173/82 H 99 Room Air PG Care Time/CCT Total # of Minutes Spent Total Time Spent with Patient: Total time spent is greater than 50% in coordination of care (as documented) at patient's floor/unit and/or counseling patient: Coding Level of Care Code 75775 Subseq Hosp Care Lvl 3 Diagnoses Cellulitis of left foot L03.116 History of right below knee amputation Z89.511 Anxiety F41.9 Opioid dependence F11.20 Hyperglycemia due to type 2 diabetes mellitus E11.65; Z79.4 Diabetes mellitus [facility] term [facility] insulin use: with [facility] use PAD (peripheral artery disease) I73.9 Time Spent (min) 35 (1) Hyperglycemia due to type 2 diabetes mellitus Diabetes mellitus intermediate insulin use: with [facility] use Qualified Code(s): E11.65 - Type 2 diabetes mellitus with hyperglycemia; Z79.4 - director long term 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
--- NOTE | 2022-03-15 21:54 | Orthopedic Progress Note ---
Date of Service March 15, 2022 Assessment & Plan (1) Diabetic foot ulcer: Plan: Patient seen, evaluated, and treated. Dispensed Rx for CAMBOOT with off loading hallux/ forefoot during transfers. Discussed use with PT. Discussed need for off loading shoes with custom molded inserts. Patient declines transfer to care home facility Continue with daily dressing changes and daily application of Santyl. Erythema has reduced in foot. Patient is at Risk for loss of limb due to loss of protective sensation. If conservative care fails as out patient and non healing wounds persist Patient would be a candidate for Tendo Achilles Lengthening to reduce forefoot pressure. Thank you for involving me in the care of this Patient. I will continue to follow while in house. (2) Cellulitis: (3) Cellulitis of left foot: Admission and Anticipated Discharge Date Admission Date: March 08, 2022 Subjective Patient is a type II diabetic, 56 yo female seen at bedside. She has no complaints. Patient states her diarrhea has improved. She has removed her dressing from her foot. Nursing is at bedside who notes they have been applying Santyl and dressing daily as directed. She admits she has been picking at her foot wound. She states she would like to go home and have a nurse come to her house for care and does not wish to transition to a skilled facility. Review of Systems Review of Systems: All systems reviewed & are unremarkable except as noted in HPI & below Physical Exam Constitutional: WD/WN, vitals as above Eyes: PERRL, conjunctivae normal, anicteric sclerae Respiratory: normal respiratory effort, lungs clear to auscultation Cardiovascular: Rate/Rhythm: regular rate and regular rhythm Skin: Wound location:Left foot Wound base color and depth:Full thickness into subcutaneous tissue Wound size (cm):Roughly left hallux 1 x 1 x 0.1 cm, plantar sub met 4 x 2 x 0.2cm Odor:no malodor Drainage:minimal serous Undermining:none Borders:fibrous with slough Psychiatric: Orientation: alert and oriented x 3 Results & Data ([facility]) Vital Signs (Past 12 Hours) Vital Signs Temp Pulse Resp BP BP Pulse Ox O2 Del Method 03/15/22 20:51 36.8 C 82 18 157/76 H 93 Room Air 03/15/22 15:44 37.0 C 82 16 173/82 H 99 Room Air
[2022-03-15] MEDS: LANTUS PER UNIT CHARGE SQ SCH (22:09)
[2022-03-16] MEDS: ACETAMINOPHEN 325 MG TAB PO SCH ×3 (00:36→13:24)
[2022-03-16] MEDS: oxyCODONE HCL IR 5 MG TAB (IMMEDIATE RELEASE) PO SCH ×5 (01:54→17:17)
[2022-03-16] MEDS: HYDROmorphone INJ 0.5 MG/0.5 ML SYR IV PRN ×3 (03:52→12:00)
[2022-03-16] MEDS ORDERED: KETOROLAC TROMETHAMINE 15 MG/ML VIAL IV ONE (06:00)
[2022-03-16] MEDS: HEPARIN SOD 5,000 UNIT/0.5 ML VIAL SQ SCH (07:59)
[2022-03-16] MEDS: PREGABALIN 75 MG CAP PO SCH ×2 (07:59→13:24)
[2022-03-16] MEDS: CYCLOBENZAPRINE HCL 10 MG TAB PO SCH (07:59)
[2022-03-16] MEDS: PANTOprazole 40 MG TAB PO SCH (08:00)
[2022-03-16] MEDS: INSULIN ASPART PER UNIT SC SCH ×2 (08:00→12:29)
[2022-03-16] MEDS: METOCLOPRAMIDE HCL 5 MG TABLET PO SCH ×2 (08:00→13:24)
[2022-03-16] MEDS: DOXYCYCLINE HYCLATE 100 MG CAP PO SCH (08:01)
[2022-03-16] MEDS: ASPIRIN 81 MG ECTAB PO SCH (08:01)
[2022-03-16] MEDS: METOPROLOL SUCC 50MG EXT REL TAB PO SCH (08:01)
[2022-03-16] MEDS: cephALEXin 500 MG CAP PO SCH ×2 (08:01→13:24)
[2022-03-16] MEDS ORDERED: LANTUS PER UNIT CHARGE SQ SCH ×2 (09:00→21:00)
[2022-03-16] MEDS: LORazepam 1 MG TAB PO PRN (09:02)
[2022-03-16] MEDS ORDERED: amLODIPine BESYLATE 5 MG TAB PO SCH (09:30)
[2022-03-16] MEDS ORDERED: DIPHENOXYLATE/ATROPINE 2.5/0.025MG TAB PO ONE (16:15)
--- NOTE | 2022-03-16 17:12 | Discharge Summary ---
Date of Service March 16, 2022 Admission HPI Per Admitting Provider 56 YOF well known to the hospitalist service from her previous right foot infections and amputation. Patient is s/p righ BKA amputation in December 2021 and followed up with her surgeon today for staple removal and was directed to the EMD for wound on her left foot associated with erythema, pain, and swelling. Patient reports that on Sunday her daughter noticed blisters on the bottom of her foot and some erythema, patient states she has no idea how this occurred as she can not feel anything down there. She marked the area with the skin marker she received from previous hospitalizations. She reports that she has not been resting her foot on her wheelchair plate as she rarely uses her wheelchair and has not gotten any new shoes or stepped at anything. She endorses pain to the foot, chills that started this morning. In the EMD the patient had routine blood work performed, blood cultures. She received dose of Vancomycin. She will be admitted to medical surgical floor, pain control. ABX with Vancomycin and Zosyn, MRI of the foot. Will add on CRP, ESR. Await cultures. Medical History of: DMII, PAD. COVID test on admission is: NEGATIVE Principal Diagnosis left foot wound Discharge Exam The patient is awake, alert and oriented 3, well developed and well nourished, normocephalic and atraumatic, lying in bed and in no acute distress. HEENT--PERRL, EOMI, mucous membranes and oropharynx mildly dry Neck--supple. No JVD. No bruits. Thyroid normal, trachea midline, no adenopathy. Heart--normal S1 and S2. No murmurs, rubs or gallops. Lungs--clear bilaterally, no respiratory distress, no accessory muscle use. Abdomen--normal bowel sounds and soft. Mild epigastric and left sided abdominal pain Extremities--no cyanosis or clubbing. No edema. Dermatologic--normal skin turgor, normal color, no abnormal lymph nodes, no rash. Neurologic--cranial nerves II through XII grossly intact. Rheumatologic--normal range of motion. Psychiatric--normal affect. Discharge Data Allergies Allergy/AdvReac Type Severity Reaction Status Date / Time morphine Allergy Severe blisters Verified 03/08/22 16:16 in mouth Sulfa (Sulfonamide Allergy Severe rash/swelli Verified 03/08/22 16:16 Antibiotics) ng iron [From Venofer] Allergy Intermediate Hypertensio Verified 03/08/22 16:16 n vancomycin Allergy Intermediate YULIYA Verified 03/08/22 16:16 SYNDROME---CAN TAKE IF VERY SLOW DRIP. amoxicillin [From Augmentin] Allergy Mild itching/power Verified 03/08/22 16:16 h clavulanic acid Allergy Mild itching/power Verified 03/08/22 16:16 [From Augmentin] h Consultations 03/10/22 11:47 Consult Podiatry Routine Ordered Studies 03/08/22 17:47 MRI Foot [MR foot LT w/o con] Routine Hospital Course (1) Cellulitis of left foot: Pressure ulcer of L foot and toe, stage 2 in a diabetic patient Patient presents with open, what appears to be pressure related area to her left great toe underside and across the ball of her feet. - no drainage noted and top layer of skin scabbed over - WBC elevated, afebrile - start on Zosyn and Vancomycin as she has history of MRSA - MRI of the left foot with and without contrast: no osteomyelitis noted. - She has 2+ pulses to lower foot and warm -inflammatory markers appear elelevated. - will consider NATHAN if healing remains slow -consulted podiatry for possible debridement of non viable tissue; Dr. Montaño is not available. Patient appears to be improving. Thankfully no signs of osteoMYELITIS S/P debridement: will monitor and discharge on Sunday, obtained cultures on 03/11 sent to lab on 03/12 growing staph species on 03/13 Due to diarrhea, will order c diff. increase pain medicine to dilaudid to 1 mg Patient reports her pain is better controlled on 03/14/22 and 03/15/22 Patient's antibiotics were switched to oral form and will cover MRSA and strep as cultured grew MRSA. Concern over how patient tolerates these antibiotics as she has allergies to penicillins. Discharge held due to elevated blood pressure. will hold off discharge on 03/15/22 Added one time dose of lisinopril inn the afternoon on 03/16 Tthis will likely need to be continued the following day, ordered in the PM as well as perhaps adding 2.5 mg of amlodipine in the afternoon/evening regimen. (2) History of right below knee amputation: Secondary to poor diabetic control and refractory osteo stump healing well, walks with walker (3) Anxiety: COntinue home anti-anxiety (4) Opioid dependence: Unfortunately will need to place on pain control medications for her foot inf ection as this is limiting her motion and weight bearing Placed oxycodone scheduled, and continue IV dilaudid (5) Hyperglycemia due to type 2 diabetes mellitus: Basal bolus insulin goal would be <180mg/dl (6) PAD (peripheral artery disease): Continue ASA and Statin Total Time Total Time Spent Total Time Spent (In Minutes): 35 Discharge Plan Discharge Items Patient Disposition: Home - Self-Care Reason For Visit: INFECTION OF L LEG Discharge Diagnosis: left leg wound infection Activity: Per Instructions section Activity Comment: Dispensed Rx for CAMBOOT with off loading hallux/ forefoot during transfers Weightbearing: Left partial Non-emergency contact: Primary Care Provider Call non-emergency contact if: you have any medication questions Follow-up/Referrals: Vince Vernon DO [Primary Care Provider] - 04/06/22 3:20 pm Diet: Regular Addtl Attending Provider Instructions: please make appointment to follow up with orthopedics Pending Studies at Discharge: No Stand-Alone Forms: [facility], Smoking Cessation Medications and DC Order Prescriptions: New doxycycline hyclate 100 mg Capsule 100 mg PO BID 7 Days Qty: 14 0RF amlodipine [Norvasc] 5 mg Tablet 5 mg PO QAM 30 Days Qty: 30 0RF cephalexin 500 mg Capsule 500 mg PO QID 7 Days Qty: 28 0RF Continued (DME) lancets [OneTouch UltraSoft Lancets] Misc See Rx Instructions .ROUTE .MEDSUPPLY Qty: 100 Rx Instructions: 4XD metoprolol succinate [Toprol XL] 50 mg tablet extended release 24 hr 50 mg PO QAM ropinirole 2 mg Tablet 4 mg PO HS nortriptyline [Pamelor] 50 mg Capsule 100 mg PO HS cyclobenzaprine 10 mg tablet 10 mg PO BID aspirin [Melissa Low Dose Aspirin] 81 mg Tablet,Delayed Release (Dr/Ec) 81 mg PO BID Qty: 60 0RF lorazepam [Ativan] 1 mg tablet 1 mg PO TID PRN (Reason: Anxiety) metoclopramide HCl 5 mg Tablet 5 mg PO AC Qty: 90 0RF oxycodone-acetaminophen [Percocet] 5-325 mg Tablet 2 tab PO Q4H PRN (Reason: moderate to severe breakthrough pain) Qty: 30 0RF pregabalin 75 mg capsule 75 mg PO TID zolpidem 10 mg tablet 10 mg PO HS PRN (Reason: Sleep) Rx Instructions: do not take within 3 hours of opiod pain med insulin lispro 100 unit/mL insulin pen 7 unit SUBCUT TIDM insulin glargine [Lantus Solostar U-100 Insulin] 100 unit/mL (3 mL) insulin pen 40 unit SUBCUT HS ondansetron 8 mg tablet,disintegrating 8 mg translingual TID PRN (Reason: Nausea) Discharge Orders: Discharge Order (Routine); Ordered 03/16/22 Ordered By: Dina Yarbrough Admission Data Admit Date/Time: 03/08/22 17:29 Attending Provider: Dina Yarbrough Admit Provider: Alexander Leonard Primary Care Provider: Vince Vernon Other Providers: Mathew Noriega Coding Level of Care Code D/C DAY MANAGEMENT >30 MINS Diagnoses Cellulitis of left foot L03.116 History of right below knee amputation Z89.511 Anxiety F41.9 Opioid dependence F11.20 Hyperglycemia due to type 2 diabetes mellitus E11.65; Z79.4 Diabetes mellitus 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
== END 2022-03-16 18:08 | disposition home or self-care (01) | DRG 571 ==
LOC: ED 14:06 → EDINP 17:29 → SUATTDRO 17:29 → 3W 03-09 21:00

== ENCOUNTER 2022-03-19 09:52 | Observation (INO) ==
[2022-03-19] MEDS ORDERED: SODIUM CHLORIDE 0.9% 1000ML 1,000 ML IV ONE (10:07)
[2022-03-19] MEDS ORDERED: ACETAMINOPHEN 1,000 MG/100 ML VIAL IV STA (10:20)
[2022-03-19] MEDS ORDERED: FAMOTIDINE 20MG IV PUSH 20 MG/5 ML SYR IV STA (10:20)
[2022-03-19] MEDS ORDERED: ONDANSETRON INJ 2 MG/ML 2 ML VIAL IV STA (10:20)
[2022-03-19] MEDS ORDERED: HYDROmorphone INJ 0.5 MG/0.5 ML SYR IV STA ×2 (10:21→12:01)
--- NOTE | 2022-03-19 10:34 | Emergency Department Note ---
Impression & Plan Intractable nausea and vomiting, Leukocytosis, Gastroparesis, Cellulitis of left foot ED Provider Note NAME: EILEEN ESCOBAR AGE: 56 SEX: F ARRIVES VIA: Walk-In INFORMANT: Patient ED PROVIDER(S): Simba Del Real MD CHIEF COMPLAINT: N/v/d. 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 difficile colitis based on her clinical presentation and PCR that was gene positive though toxin negative, admission 03/08-03/16 for new left foot infection treated with IV antibiotics and transition to Keflex and doxycycline following surgical debridement by podiatry who presents to the emergency department with nausea, vomiting, abdominal pain and persistent watery diarrhea since yesterday. She reports she has been unable to keep her medications down including her antibiotics and chronic Percocet. She denies fevers, chills, cough, congestion, urinary symptoms. On arrival the patient is chronically ill-appearing but no acute distress, afebrile with heart in the 110s and blood pressure 190s/80s in the setting of her discomfort and vital signs otherwise stable. She has generalized abdominal discomfort without discrete tenderness. WBC 17.7K nonspecific. H/H within normal limits. Platelets within normal limits. Glucose 260. chemistry without metabolic acidosis. Magnesium 1.6 with repletion provided. LFTs without significant abnormality. Lipase is not elevated. UA without convincing evidence of infection. The patient's stool PCR was negative including negative for C. difficile. COVID-[address] of the abdomen pelvis performed was negative for acute intra-abdominal or intrapelvic abnormality. Note was made of moderate to extensive colonic fecal retention despite the patient's report of diarrhea. Mild nonspecific distal esophageal wall thickening may suggest esophagitis setting of the patient's intractable vomiting. On reevaluation the patient did appear improved following IV fluid hydration, APAP, famotidine, Pepcid and IV Dilaudid x2 in addition to her magnesium supplementation. We did discuss the option for outpatient management given she was able to tolerate ice chips. However she became tearful and reported she still felt nauseated and felt as though she would get home and started vomiting again. Thus, upon further discussion with the patient and her we agreed to refer the patient for admission. Case was discussed with Dr. Allan, [facility] hospitalist, who will evaluate the patient for admission. Triage Nursing notes reviewed and agree them. Prior medical records reviewed Vital Signs: reviewed and remarkable for tachycardia. Differential diagnosis: Gastroenteritis, food borne illness, infections, appendicitis, diverticulitis, inflammatory bowel disease, obstruction, GI bleed, biliary pathology, volvulus, as well as other pathologies. ER treatment provided: See below. Diagnostics interpreted by me: ECG: Sinus tachycardia, 109 bpm, no ectopy, no overt ST elevation or depression, QTC 444, QRS 86. Cardiac Monitoring: An order for continuous cardiac monitoring was placed and demonstrated sinus tachycardia, 109 bpm, no ectopy. Laboratory studies: See below Imaging studies: See below Consultation(s): Case was discussed with Dr. Allan, [facility] hospitalist, who will evaluate the patient for admission. 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 difficile colitis based on her clinical presentation and PCR that was gene positive though toxin negative, admission 03/08-03/16 for new left foot infection treated with IV antibiotics and transition to Keflex and doxycycline following surgical debridement by podiatry who presents to the emergency department with nausea, vomiting, abdominal pain and persistent watery diarrhea since yesterday. She reports she has been unable to keep her medications down including her antibiotics and chronic Percocet. She denies fevers, chills, cough, congestion, urinary symptoms. ROS: See above HPI for pertinent positives & negatives. A total of 10 systems reviewed and were otherwise negative. VITALS:See Below PHYSICAL EXAMINATION: GENERAL: Awake, alert, chronically ill-appearing, in no distress HENT: Normocephalic, atraumatic. Oropharynx with dry mucous membranes and otherwise unremarkable. . EYES: Normal conjunctiva. Sclera non-icteric. NECK: Supple. No nuchal rigidity. FROM. No JVD. RESPIRATORY: Clear to auscultation. CARDIAC: Tachycardic rate, normal rhythm. Extremities warm and well perfused. Pulses equal. ABDOMEN: Soft, non-distended. Generalized abdominal discomfort without discrete tenderness to palpation. No rebound or guarding. No masses. RECTAL: Deferred. MUSCULOSKELETAL: Chest examination reveals no tenderness. The back is symmetrical on inspection without obvious abnormality. There is no CVA tenderness to palpation. LOWER EXTREMITIES: Right BKA without signs of infection. Left forefoot and great toe with scant erythema and plantar ulcer without discharge, crepitus, or significant warmth. NEURO: Normal sensorium. No sensory or motor deficits noted. SKIN: No rash or jaundice noted. Simba Del Real MD Past Med/Surg History Medical History Acidosis, lactic Acute dehydration 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 No issues per anesthesia postop progress note. Anemia Cellulitis Chronic back pain Depression Diabetic peripheral neuropathy DM2 (diabetes mellitus, type 2) IDDM, A1c 07/2021-11% Gastritis Gastroenteritis GIB (gastrointestinal bleeding) History of amputation of great toe Hyperlipidemia Insulin dependent diabetes mellitus Iron deficiency anemia Nonobstructive atherosclerosis of coronary artery Numbness of lower extremity Peripheral neuropathy Right second toe ulcer Seizures Sepsis Surgical History History of cardiac cath done at [facility]; 09/22/19; LM - mild luminal irregularities. LAD - mid 20-30%, distal with myocardial bridge & 30% stenosis. L Cx - mild luminal irregularities. RCA - proximal <30% stenosis; mid/distal vessel mild plaques. PDA - mild luminal irregularities. History of esophagogastroduodenoscopy (EGD) History of right below knee amputation (12/22/21) Right Below Knee Amputation(Right) - Davon Good MD, FACS Family History Mother , age 63 Myocardial infarction Father , age 68 or 69 Myocardial infarction Brother S/P CABG (coronary artery bypass graft) Sister Myocardial infarction x 3; she is 57yo Social History Smoking Status: Current every day smoker Tobacco Type: Cigarettes packs per day: 0.5; Years Smoked: 20; Cigarettes Per Day: 20; Second Hand Exposure: No; Hx Alcohol Use: No Hx Substance Use: Yes Prescribed Medications: Marijuana Last Used Substance: Days (ago) Last Used Substance Other:: 2 days ago Substance Use Type Other:: me dical marijuana Preferred Language: Chadian Communication Ability: Effective Visual Impairment: No Limitations Hearing Ability: Normal Assistant Manager Of Operations Required: No Beliefs That Will Affect Care: None marital status: Current Living Situation: Spouse current occupational status: unemployed 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 other: raising a grandchild as well; lives in [place] Feels Safe at Home: Yes Safety Concerns: Feels Safe At This Time during the past year weight has: remained stable Assistive Devices: Walker and Wheelchair Allergies Allergies Allergy/AdvReac Type Severity Reaction Status Date / Time morphine Allergy Severe blisters Verified 03/08/22 16:16 in mouth Sulfa (Sulfonamide Allergy Severe rash/swelli Verified 03/08/22 16:16 Antibiotics) ng iron [From Venofer] Allergy Intermediate Hypertensio Verified 03/08/22 16:16 n vancomycin Allergy Intermediate YULIYA Verified 03/08/22 16:16 SYNDROME---CAN TAKE IF VERY SLOW DRIP. amoxicillin [From Augmentin] Allergy Mild itching/power Verified 03/08/22 16:16 h clavulanic acid Allergy Mild itching/power Verified 03/08/22 16:16 [From Augmentin] h Home Meds Home Medications Medication Instructions Recorded Confirmed nortriptyline 50 mg capsule 100 mg PO HS 10/19/20 03/08/22 (Pamelor) ropinirole 2 mg tablet 4 mg PO HS 10/19/20 03/08/22 lancets (OneTouch UltraSoft #100 ea 11/12/20 03/08/22 Lancets) metoprolol succinate 50 mg 50 mg PO QAM 03/05/21 03/08/22 tablet,extended release 24 hr (Toprol XL) lorazepam 1 mg tablet (Ativan) 1 mg PO TID PRN Anxiety 11/04/21 03/08/22 cyclobenzaprine 10 mg tablet 10 mg PO BID 11/24/21 03/19/22 insulin glargine 100 unit/mL (3 40 unit subcut HS 03/08/22 03/08/22 mL) subcutaneous pen (Lantus Solostar U-100 Insulin) insulin lispro 100 unit/mL 7 unit subcut TIDM 03/08/22 03/08/22 subcutaneous pen ondansetron 8 mg disintegrating 8 mg translingual TID PRN Nausea 03/08/22 03/08/22 tablet pregabalin 75 mg capsule 75 mg PO TID 03/08/22 03/08/22 zolpidem 10 mg tablet 10 mg PO HS PRN Sleep 03/08/22 03/08/22 Previous Rx's Medication Instructions Recorded aspirin 81 mg tablet,delayed 81 mg PO BID #60 tabs 10/04/21 release (Melissa Low Dose Aspirin) metoclopramide HCl 5 mg tablet 5 mg PO AC #90 tabs 12/26/21 oxycodone-acetaminophen 5 mg-325 2 tab PO Q4H PRN moderate to 12/26/21 mg tablet (Percocet) severe breakthrough pain #30 tabs amlodipine 5 mg tablet (Norvasc) 5 mg PO QAM 30 days #30 tabs 03/16/22 cephalexin 500 mg capsule 500 mg PO QID 7 days #28 caps 03/16/22 doxycycline hyclate 100 mg capsule 100 mg PO BID 7 days #14 caps 03/16/22 Results & Data (ED) Vital Signs Vital Signs - 24 hr 03/19/22 09:56 03/19/22 11:01 03/19/22 11:01 Temperature 36.5 C Temperature Source Temporal Artery Scan Pulse Rate 116 H 103 H Pulse Rate from SpO2 Sensor 103 H Respiratory Rate 17 18 Respiratory Effort / Characteristics Non-Labored Spontaneous Respiratory Depth Normal Respiratory Pattern Regular Blood Pressure 199/89 H 191/110 H Blood Pressure Mean 125 137 Blood Pressure Position Sitting Pulse Oximetry 99 98 Oxygen Delivery Method Room Air Sepsis Recent Fever Within 48 Hours No Sepsis New/Unexplained Change in Mental Status No Sepsis Action Taken by Nursing No Action Required 03/19/22 11:50 03/19/22 11:50 03/19/22 12:00 Temperature Temperature Source Pulse Rate 105 H 101 H Pulse Rate from SpO2 Sensor 104 H 101 H Respiratory Rate 16 16 Respiratory Effort / Characteristics Respiratory Depth Respiratory Pattern Blood Pressure 189/109 H Blood Pressure Mean 135 Blood Pressure Position Pulse Oximetry 98 98 Oxygen Delivery Method Sepsis Recent Fever Within 48 Hours Sepsis New/Unexplained Change in Mental Status Sepsis Action Taken by Nursing Laboratory Data Attestation: I reviewed the patient's lab results. Result diagrams: 03/19/22 10:49 03/19/22 10:49 Lab Results 03/19/22 03/19/22 03/19/22 Range/Units 10:29 10:41 10:49 WBC 17.75 H (4.8-10.8) K/ul RBC 5.67 H (3.93-5.22) M/uL Hgb 13.1 (12.0-16.0) g/dl Hct 42.6 (34.1-44.9) % MCV 75.1 L (80.0-100.0) fL MCH 23.1 L (25.0-34.0) pg MCHC 30.8 L (32.0-36.0) g/dL RDW Std Deviation 42.5 (36.4-46.3) fL RDW Coeff of Maria Del Carmen 16.3 H (11.5-14.5) % Plt Count 358 (130-400) K/uL MPV 9.7 (9.4-12.3) fL Immature Gran % (Auto) 0.8 % Neut % (Auto) 81.1 % Lymph % (Auto) 11.8 % Sargent % (Auto) 4.5 % Eos % (Auto) 1.1 % Baso % (Auto) 0.7 % Neut # (Auto) 14.40 H (1.4-6.5) K/uL Lymph # (Auto) 2.09 (1.2-3.4) K/uL Sargent # (Auto) 0.79 (0.24-0.82) K/uL Eos # (Auto) 0.20 (0-0.50) K/uL Baso # (Auto) 0.12 (0-0.2) K/uL Immature Gran # (Auto) 0.15 H (0.00-0.02) K/uL Sodium (136-145) mmol/L Potassium (3.5-5.1) mmol/L Chloride (98-107) mmol/L Carbon Dioxide (21-32) mmol/L Anion Gap (3-11) BUN (6-23) mg/dl Creatinine (0.6-1.2) mg/dl Est Cr Clr Drug Dosing ml/min Est GFR ( Amer) ml/min Est GFR (Non-Af Amer) ml/min BUN/Creatinine Ratio (10-20) Glucose (70-99(Fasting)) mg/dl Calcium (8.5-10.1) mg/dl Phosphorus (2.5-4.9) mg/dl Magnesium (1.7-2.4) mg/dl Total Bilirubin (0.2-1.0) mg/dl AST (13-39) U/L ALT (7-52) U/L Alkaline Phosphatase (34-104) U/L Total Protein (6.0-8.3) gm/dl Albumin (3.4-5.0) gm/dl Globulin (2.5-4.0) gm/dl Albumin/Globulin Ratio (0.9-2) Lipase (11-82) U/L Urine Color Urine Appearance (Clear) Urine pH (4.5-7.5) Ur Specific [place] (1.000-1.030) Urine Protein (Negative) Urine Glucose (UA) (Negative) Urine Ketones (Negative) Urine Blood (Negative) Urine Nitrite (Negative) Urine Bilirubin (Negative) Urine Urobilinogen (Negative) Ur Leukocyte Esterase (Negative) Stl C. cayetanensis PCR Not Detected (NotDetected) Stool Rotavirus A PCR Not Detected (NotDetected) Stl Adenov F 40/41 PCR Not Detected (NotDetected) Stool Astrovirus (PCR) Not Detected (NotDetected) Stool Campylobacter PCR Not Detected (NotDetected) Stl C. diff Tox A/B PCR Not Detected (NotDetected) Stool Cryptosporidium PCR Not Detected (NotDetected) Stl E.coli Shiga Tox PCR Not Detected (NotDetected) Stl Enterotoxigenic E PCR Not Detected (NotDetected) Stool EPEC (PCR) Not Detected (NotDetected) Stool EAEC (PCR) Not Detected (NotDetected) Stl E. histolytica PCR Not Detected (NotDetected) Stool Giardia Lamblia PCR Not Detected (NotDetected) Stool Salmonella PCR Not Detected (NotDetected) Stool Sapovirus (PCR) Not Detected (NotDetected) Stl P. shigelloides PCR Not Detected (NotDetected) Stl Shigella/EIEC PCR Not Detected (NotDetected) St Y.enterocolitica PCR Not Detected (NotDetected) Stool Vibrio (PCR) Not Detected (NotDetected) Stl Vibrio cholerae PCR Not Detected (NotDetected) Stl Norovirus GI/GII PCR Not Detected (NotDetected) SARS-CoV-2 (PCR) NEGATIVE (Negative) 03/19/22 03/19/22 Range/Units 10:49 11:59 WBC (4.8-10.8) K/ul RBC (3.93-5.22) M/uL Hgb (12.0-16.0) g/dl Hct (34.1-44.9) % MCV (80.0-100.0) fL MCH (25.0-34.0) pg MCHC (32.0-36.0) g/dL RDW Std Deviation (36.4-46.3) fL RDW Coeff of Maria Del Carmen (11.5-14.5) % Plt Count (130-400) K/uL MPV (9.4-12.3) fL Immature Gran % (Auto) % Neut % (Auto) % Lymph % (Auto) % Sargent % (Auto) % Eos % (Auto) % Baso % (Auto) % Neut # (Auto) (1.4-6.5) K/uL Lymph # (Auto) (1.2-3.4) K/uL Sargent # (Auto) (0.24-0.82) K/uL Eos # (Auto) (0-0.50) K/uL Baso # (Auto) (0-0.2) K/uL Immature Gran # (Auto) (0.00-0.02) K/uL Sodium 134 L (136-145) mmol/L Potassium 4.0 (3.5-5.1) mmol/L Chloride 97 L (98-107) mmol/L Carbon Dioxide 27 (21-32) mmol/L Anion Gap 10 (3-11) BUN 9 (6-23) mg/dl Creatinine 0.47 L (0.6-1.2) mg/dl Est Cr Clr Drug Dosing 120.4 ml/min Est GFR ( Amer) 127.1 ml/min Est GFR (Non-Af Amer) 109.6 ml/min BUN/Creatinine Ratio 19.1 (10-20) Glucose 262 H (70-99(Fasting)) mg/dl Calcium 10.1 (8.5-10.1) mg/dl Phosphorus 2.8 (2.5-4.9) mg/dl Magnesium 1.6 L (1.7-2.4) mg/dl Total Bilirubin 0.4 (0.2-1.0) mg/dl AST 11 L (13-39) U/L ALT 14 (7-52) U/L Alkaline Phosphatase 123 H (34-104) U/L Total Protein 8.5 H (6.0-8.3) gm/dl Albumin 4.8 (3.4-5.0) gm/dl Globulin 3.7 (2.5-4.0) gm/dl Albumin/Globulin Ratio 1.3 (0.9-2) Lipase 3 L (11-82) U/L Urine Color Yellow Urine Appearance Clear (Clear) Urine pH 8.0 H (4.5-7.5) Ur Specific [place] > 1.045 H (1.000-1.030) Urine Protein Negative (Negative) Urine Glucose (UA) 2+ H (Negative) Urine Ketones Negative (Negative) Urine Blood Negative (Negative) Urine Nitrite Negative (Negative) Urine Bilirubin Negative (Negative) Urine Urobilinogen Negative (Negative) Ur Leukocyte Esterase Negative (Negative) Stl C. cayetanensis PCR (NotDetected) Stool Rotavirus A PCR (NotDetected) Stl Adenov F 40/41 PCR (NotDetected) Stool Astrovirus (PCR) (NotDetected) Stool Campylobacter PCR (NotDetected) Stl C. diff Tox A/B PCR (NotDetected) Stool Cryptosporidium PCR (NotDetected) Stl E.coli Shiga Tox PCR (NotDetected) Stl Enterotoxigenic E PCR (NotDetected) Stool EPEC (PCR) (NotDetected) Stool EAEC (PCR) (NotDetected) Stl E. histolytica PCR (NotDetected) Stool Giardia Lamblia PCR (NotDetected) Stool Salmonella PCR (NotDetected) Stool Sapovirus (PCR) (NotDetected) Stl P. shigelloides PCR (NotDetected) Stl Shigella/EIEC PCR (NotDetected) St Y.enterocolitica PCR (NotDetected) Stool Vibrio (PCR) (NotDetected) Stl Vibrio cholerae PCR (NotDetected) Stl Norovirus GI/GII PCR (NotDetected) SARS-CoV-2 (PCR) (Negative) Administered Medications Acetaminophen (Acetaminophen 500 Mg Tab) 1,000 mg PO Q8 RICKY Stop: 04/18/22 21:59 Last Admin: 03/19/22 22:07 Dose: 1,000 mg Documented By: RONY Cyclobenzaprine HCl (Cyclobenzaprine Hcl 10 Mg Tab) 10 mg PO BID RICKY Stop: 04/18/22 20:59 Last Admin: 03/19/22 20:41 Dose: 10 mg Documented By: YAZMIN Heparin Sodium (Porcine) (Heparin Sod 5,000 Unit/0.5 Ml Vial) 5,000 units SQ Q12 RICKY Stop: 04/18/22 20:59 Last Admin: 03/19/22 20:50 Dose: 5,000 units Documented By: YAZMIN Hydromorphone HCl (Hydromorphone Inj 1 Mg/Ml Syringe) 1 mg IV Q4H PRN PRN Reason: Severe Pain (7,8,9,10) on NRS Stop: 04/02/22 13:48 Last Admin: 03/19/22 22:07 Dose: 1 mg Documented By: Admin: 03/19/22 17:50 Dose: 1 mg Documented By: LAURA Insulin Aspart (Insulin Aspart Per Unit) 0 units SC ACHS [facility] Stop: 04/18/22 16:29 Last Admin: 03/19/22 18:00 Dose: 2 units Documented By: LAURA Co-signed By: THELMA Lorazepam (Lorazepam 1 Mg Tab) 1 mg PO TID PRN PRN Reason: Anxiety Stop: 04/18/22 16:26 Last Admin: 03/19/22 20:47 Dose: 1 mg Documented By: YAZMIN Metoprolol Succinate (Metoprolol Succ 50mg Ext Rel Tab) 50 mg PO QAM RICKY Stop: 04/18/22 16:59 Last Admin: 03/19/22 17:50 Dose: 50 mg Documented By: LAURA Nortriptyline HCl (Nortriptyline Hcl 25 Mg Cap) 100 mg PO [facility] Stop: 04/18/22 20:59 Last Admin: 03/19/22 20:41 Dose: 100 mg Documented By: YAZMIN Ondansetron HCl (Ondansetron Inj 2 Mg/Ml 2 Ml Vial) 4 mg IV Q6H PRN PRN Reason: Nausea And Vomiting Stop: 04/18/22 16:26 Last Admin: 03/19/22 18:25 Dose: 4 mg Documented By: LAURA Polyethylene Glycol (Polyethylene (Miralax) 17 Gm Pack) 17 gm PO TID [facility] Stop: 04/18/22 16:29 Last Admin: 03/19/22 20:41 Dose: 17 gm Documented By: Admin: 03/19/22 17:49 Dose: 17 gm Documented By: LAURA Pregabalin (Pregabalin 75 Mg Cap) 75 mg PO TID [facility] Stop: 04/18/22 16:26 Last Admin: 03/19/22 20:47 Dose: 75 mg Documented By: Admin: 03/19/22 17:49 Dose: 75 mg Documented By: LAURA Ropinirole HCl (Ropinirole Hcl 2 Mg Tablet) 4 mg PO [facility] Stop: 04/18/22 20:59 Last Admin: 03/19/22 20:41 Dose: 4 mg Documented By: YAZMIN Discontinued Medications Hydromorphone HCl (Hydromorphone Inj 0.5 Mg/0.5 Ml Syr) 0.5 mg IV NOW STA Stop: 03/19/22 10:22 Last Admin: 03/19/22 10:55 Dose: 0.5 mg Documented By: CARLEEN Hydromorphone HCl (Hydromorphone Inj 0.5 Mg/0.5 Ml Syr) 0.5 mg IV NOW STA Stop: 03/19/22 12:02 Last Admin: 03/19/22 12:23 Dose: 0.5 mg Documented By: CARLEEN Sodium Chloride (Nss 1000ml) 1,000 mls @ 999 mls/hr IV .Q1H1M ONE Stop: 03/19/22 11:07 Last Infusion: 03/19/22 11:25 Dose: 0 mls/hr Documented By: Admin: 03/19/22 10:54 Dose: 999 mls/hr Documented By: CARLEEN Acetaminophen (Ofirmev) 1,000 mg in 100 mls @ 400 mls/hr IV NOW STA Stop: 03/19/22 10:34 Last Infusion: 03/19/22 11:24 Dose: 0 mls/hr Documented By: Admin: 03/19/22 10:54 Dose: 400 mls/hr Documented By: CARLEEN Famotidine (Pepcid 20mg Iv Push) 20 mg in 5 mls @ 2.5 mls/min IV NOW STA Stop: 03/19/22 10:21 Last Admin: 03/19/22 10:54 Dose: 2.5 mls/min Documented By: CARLEEN Magnesium Sulfate/Dextrose (Magnesium Sulfate / D5w) 1 gm in 100 mls @ 100 mls/hr IV Q1H RICKY Stop: 03/19/22 14:02 Last Infusion: 03/19/22 16:31 Dose: 0 mls/hr Documented By: Admin: 03/19/22 13:54 Dose: 100 mls/hr Documented By: Infusion: 03/19/22 13:23 Dose: 100 mls/hr Documented By: Admin: 03/19/22 12:23 Dose: 100 mls/hr Documented By: CARLEEN Vancomycin HCl 1,500 mg/ (Sodium Chloride) 530 mls @ 100 mls/hr IV NOW ONE Stop: 03/19/22 19:47 Last Infusion: 03/19/22 17:58 Dose: 100 mls/hr Documented By: Admin: 03/19/22 15:26 Dose: 160 mls/hr Documented By: JIMMY Ioversol (Optiray 320 100ml) 94 ml IV ONCE ONE Stop: 03/19/22 11:45 Last Admin: 03/19/22 11:45 Dose: 94 ml Documented By: ELLEN Metoprolol Tartrate (Metoprolol Tartrate 1 Mg/Ml Vial) 2.5 mg IV Q6 RICKY Stop: 04/18/22 13:54 Last Admin: 03/19/22 17:00 Dose: Not Given Documented By: LAURA Metoprolol Tartrate (Metoprolol Tartrate 1 Mg/Ml Vial) 2.5 mg IV ONE STA Stop: 03/19/22 14:10 Last Admin: 03/19/22 15:23 Dose: 2.5 mg Documented By: JIMMY Ondansetron HCl (Ondansetron Inj 2 Mg/Ml 2 Ml Vial) 4 mg IV NOW STA Stop: 03/19/22 10:21 Last Admin: 03/19/22 10:54 Dose: 4 mg Documented By: CARLEEN Imaging Data Radiologist's Impression: Abdomen/Pelvis CT 03/19/22 10:[address] WITH IV CONTRAST CT DOSE: 375.70 mGy.cm HISTORY: Acute nausea, vomiting and diarrhea n/v/d TECHNIQUE: Multiaxial CT images of the abdomen and pelvis were performed following the IV administration of 94 cc of Optiray, A dose lowering technique was utilized adhering to the principles of ALARA. COMPARISON STUDY: CT abdomen and pelvis 01/15/2022 FINDINGS: There is mild right basilar subsegmental atelectasis. There is no pneumatosis or pneumoperitoneum. The spleen measures within the upper limits of normal in size at 13 cm. Moderate generalized pancreatic atrophy. Unremarkable adrenal glands. Cholecystectomy is likely postsurgical biliary ductal dilation. Unremarkable liver with patency of the hepatic and portal veins. 3 mm calcification of the inferior pole right kidney. There is symmetric enhancement of the kidneys. 1.3 cm hypodensity of the superior pole right kidney suggestive of a probable cyst. No ureteral calculi or hydronephrosis. Partial distention of the urinary bladder with mild wall thickening. Unremarkable uterus. Atherosclerosis of the aorta without aneurysm. High-grade stenosis of the right external iliac artery on image 324. Mild nonspecific distal esophageal wall thickening which may represent underlyi ng esophagitis. No bowel obstruction. There is moderate to extensive colonic fecal retention. Prior appendectomy. No ascites or mesenteric inflammation. Unremarkable soft tissues. No acute fracture. Posterior interbody anyi and screw fusion L5-S1. Grade 1 anterolisthesis L4 on L5 is likely degenerative. IMPRESSION: 1. No acute intra-abdominal or intrapelvic abnormality. 2. No bowel obstruction or bowel wall thickening. 3. Moderate to extensive colonic fecal retention. 4. Nonobstructing right nephrolithiasis. 5. Prior appendectomy and cholecystectomy. 6. Additional findings as above. ACT 112: Negative or not required by law. The above report was generated using voice recognition software. It may contain grammatical, syntax or spelling errors. Electronically signed by: Puneet Howard M.D. 03/19/2022 12:02 PM Foot MRI 03/19/22 13:49 MR foot LT w/o con HISTORY: 56 years-old Female Worsening cellulitis, streaking, DM, flexor t pain chronic left foot pain with cellulitis patient presents with open wounds foot with possible osteomyelitis COMPARISON: MRI left foot 03/08/2022 TECHNIQUE: Planar multisequence MRI of the left foot obtained without the use of IV contrast. FINDINGS: There is progressively worsened subcutaneous edema of the foot, most pronounced in the dorsal forefoot and also within the plantar tissues of the first digit and medial forefoot. Subcutaneous edema is noted adjacent to the medial cord of the plantar fascia which is partially imaged. No drainable fluid collection. 1.3 cm cutaneous ulcer of the plantar great toe. There is mild multifocal osteoarthritis. No acute fracture, dislocation, osseous erosion or significant marrow edema. The imaged flexor and extensor tendons appear unremarkable. IMPRESSION: 1. No acute fracture or MR evidence of acute osteomyelitis. 2. Nonspecific subcutaneous edema of the forefoot, most pronounced in the plantar aspect of the first digit. No abscess. 3. Small plantar ulcer of the great toe. 4. Possible findings of plantar fasciitis which are partially imaged. ACT 112: Negative or not required by law. The above report was generated using voice recognition software. It may contain grammatical, syntax or spelling errors. Electronically signed by: Puneet Howard M.D. 03/19/2022 8:12 PM Discharge Plan Visit Data Chief Complaint: Illness Stated Complaint: SOB,DIARRHEA,VOMITING,CHILLS,LOW GRADE FEVER ED Provider: Simba Del Real Discharge Problem: Intractable nausea and vomiting, Leukocytosis, Gastroparesis, Cellulitis of left foot Patient Disposition: Admitted As Inpatient Discharge Instructions Interventions: ED Discharge Assessment Last Done: 03/19/22 15:23
[2022-03-19 10:56] LABS: Basophils # (auto) 0.12 K/uL (0-0.2); Basophils % (auto) 0.7 %; Eosinophils % (auto) 1.1 %; Hematocrit (blood only) 42.6 % (34.1-44.9); Hemoglobin 13.1 g/dl (12.0-16.0); Immature Granulocytes # (auto) 0.15 K/uL (0.00-0.02); Immature Granulocytes % (auto) 0.8 %; Lymphocytes # (auto) 2.09 K/uL (1.2-3.4); Lymphocytes % (auto) 11.8 %; Mean Corpuscular Hemoglobin 23.1 pg (25.0-34.0); Mean Corpuscular Hgb Conc 30.8 g/dL (32.0-36.0); Mean Corpuscular Volume 75.1 fL (80.0-100.0); Mean Platelet Volume 9.7 fL (9.4-12.3); Monocytes # (auto) 0.79 K/uL (0.24-0.82); Monocytes % (auto) 4.5 %; Neutrophils % (auto) 81.1 %; Platelet Count 358 K/uL (130-400); RDW Coefficient of Variation 16.3 % (11.5-14.5); RDW Standard Deviation 42.5 fL (36.4-46.3); Red Blood Count 5.67 M/uL (3.93-5.22); White Blood Count 17.75 K/ul (4.8-10.8)
[2022-03-19 11:16] LABS: Albumin Globulin Ratio 1.3 (0.9-2); Albumin Level 4.8 gm/dl (3.4-5.0); BUN Creatinine Ratio 19.1 (10-20); Bilirubin,Total 0.4 mg/dl (0.2-1.0); Calcium 10.1 mg/dl (8.5-10.1); Creatinine Clr Calc Pharmacy 120.4 ml/min; Est GFR (African American) 127.1 ml/min; Est GFR (Non-African American) 109.6 ml/min; Globulin 3.7 gm/dl (2.5-4.0); Magnesium 1.6 mg/dl (1.7-2.4); Phosphorus 2.8 mg/dl (2.5-4.9); Total Protein 8.5 gm/dl (6.0-8.3)
[2022-03-19] MEDS ORDERED: OPTIRAY 320 100ml IV ONE (11:44)
--- NOTE | 2022-03-19 12:04 | CT Scan Report ---
ABDOMEN AND PELVIS CT WITH IV CONTRAST CT DOSE: 375.70 mGy.cm HISTORY: Acute nausea, vomiting and diarrhea n/v/d TECHNIQUE: Multiaxial CT images of the abdomen and pelvis were performed following the IV administrat ion of 94 cc of Optiray, A dose lowering technique was utilized adhering to the principles of ALARA. COMPARISON STUDY: CT abdomen and pelvis 01/15/2022 FINDINGS: There is mild right basilar subsegmental atelectasis. There is no pneumatosis or pneumoperi toneum. The spleen measures within the upper limits of normal in size at 13 cm. Moderate generalized pancreatic atrophy. Unremarkable adrenal glands. Cholecystectomy is likely postsurgical biliary ducta l dilation. Unremarkable liver with patency of the hepatic and portal veins. 3 mm calcification of the inferior pole right kidney. There is symmetric enhancement of the kidneys. 1.3 cm hypodensity of the superior pole right kidney suggestive of a probable cyst. No ureteral calcu li or hydronephrosis. Partial distention of the urinary bladder with mild wall thickening. Unremarkab le uterus. Atherosclerosis of the aorta without aneurysm. High-grade stenosis of the right external i liac artery on image 324. Mild nonspecific distal esophageal wall thickening which may represent underlying esophagitis. No bow el obstruction. There is moderate to extensive colonic fecal retention. Prior appendectomy. No ascite s or mesenteric inflammation. Unremarkable soft tissues. No acute fracture. Posterior interbody anyi a nd screw fusion L5-S1. Grade 1 anterolisthesis L4 on L5 is likely degenerative. IMPRESSION: 1. No acute intra-abdominal or intrapelvic abnormality. 2. No bowel obstruction or bowel wall thickening. 3. Moderate to extensive colonic fecal retention. 4. Nonobstructing right nephrolithiasis. 5. Prior appendectomy and cholecystectomy. 6. Additional findings as above. ACT 112: Negative or not required by law. The above report was generated using voice recognition software. It may contain grammatical, syntax o r spelling errors. Electronically signed by: Puneet Howard M.D. 03/19/2022 12:02 PM
[2022-03-19 12:08] LABS: Appearance Urine Clear (Clear); Bilirubin Urine Negative (Negative); Blood Urine Negative (Negative); Color Urine Yellow; Glucose Urine UA 2+ (Negative); Ketones Urine Negative (Negative); Leukocyte Esterase Urine Negative (Negative); Nitrite Urine Negative (Negative); Protein Urine Negative (Negative); Specific Gravity Urine > 1.045 (1.000-1.030); Urobilinogen Urine Negative (Negative)
[2022-03-19] MEDS: MAGNESIUM SULFATE / D5W 1 GM/100 ML BAG IV SCH ×2 (12:23→13:54)
[2022-03-19 12:30] LABS: Adenovirus F 40/41 PCR Not Detected (NotDetected); Astrovirus PCR Not Detected (NotDetected); Campylobacter PCR Not Detected (NotDetected); Clostridium diff Toxin A/B PCR Not Detected (NotDetected); Cryptosporidium PCR Not Detected (NotDetected); Cyclospora cayetanensis PCR Not Detected (NotDetected); Entamoeba histolytica PCR Not Detected (NotDetected); Enteroaggregative E.coli(EAEC) Not Detected (NotDetected); Enteropathogenic E.coli (EPEC) Not Detected (NotDetected); Enterotoxigenic E.coli (ETEC) Not Detected (NotDetected); Giardia lamblia PCR Not Detected (NotDetected); Norovirus GI/GII PCR Not Detected (NotDetected); Plesiomonas shigelloides PCR Not Detected (NotDetected); Rotavirus A PCR Not Detected (NotDetected); Salmonella PCR Not Detected (NotDetected); Sapovirus PCR Not Detected (NotDetected); Shiga-like Toxin E.coli (STEC) Not Detected (NotDetected); Shigella/Enteroinvasive E.coli Not Detected (NotDetected); Vibrio cholerae PCR Not Detected (NotDetected); Vibrio species PCR Not Detected (NotDetected); Yersinia enterocolitica PCR Not Detected (NotDetected)
--- NOTE | 2022-03-19 12:55 | Electrocardiogram Report ---
Test Reason : Blood Pressure : / mmHG Vent. Rate : 109 BPM Atrial Rate : 109 BPM P-R Int : 152 ms QRS Dur : 086 ms QT Int : 330 ms P-R-T Axes : 055 043 072 degrees QTc Int : 444 ms Sinus tachycardia Cannot rule out Old Anterior infarct (cited on or before 08-MAR-2022) Abnormal ECG When compared with ECG of 08-MAR-2022 15:35, No significant change was found Confirmed by Biju Tolbert ([id number]) on 03/19/2022 12:55:21 PM Referred By: REFERRED SELF Confirmed By:Biju Tolbert
--- NOTE | 2022-03-19 13:15 | History & Physical Report ---
Date of Service March 19, 2022 Assessment & Plan (1) Cellulitis: Plan: Mariana is a 56-year-old female with recurrent infections for right foot infections, amputations, and chronic pain who presents to the emergency department with concern for sepsis and intractable nausea/vomiting. On initial assessment she is afebrile, tachycardic, mildly hypertensive in the setting of acute pain Intractable nausea/vomiting/abdominal pain with watery diarrhea PCR panel negative. C. difficile negative. Patient with past C. difficile gene positive, can consider Vanco 125 mg daily dosing for prophylaxis while on antibiotics CT/A/P without acute abnormalities. Moderate to extensive colonic fecal retention Antiemetics (QT not prolonged). Given chronic opioid use and CT suspect that her diarrhea and feculent belching is actually reflective of overflow diarrhea and chronic constipation we will add MiraLAX andreas and bisacodyl, may add mag citrate if ineffective PPI, H2 Clears for now, advance as tolerated Left foot cellulitis, plantar surface diabetic ulcer Unable to keep down antibiotics, was discharged days ago and transition to Keflex/Doxy. MRSA positive culture Patient does have sulfa allergy, has not tolerated amoxicillin with itching/rash previously On assessment left foot with streaking up the first flexor tendon, progression of ulceration of the plantar surface to below the third/fourth MCP, new per patient and . Tender on ankle dorsiflexion/plantarflexion, toe flexion/extension. PT pulse intact Given worsening and streaking, repeat left foot MRI ordered Admitted on vancomycin/Rocephin Wound care consulted Hypertension History of poorly controlled hypertension, worsened in the setting of pain Continue amlodipine, metoprolol when tolerating PO Patient did respond well previously to low doses of lisinopril Poor p.o. tolerance to medications at this time While unable to tolerate p.o. we will add metoprolol tartrate IV 2.5 mg every 6 hours, hydralazine as needed for greater than 180 Anxiety Continue home meds. On lorazepam 1 mg p.o. 3 times daily. May spot dose IV if unable to tolerate orals due to nausea History of opioid dependence Complex history with opioid dependence with chronic pain and history of diabetic neuropathy and amputations Unable to tolerate p.o. continue home regimen of pregabalin 75 mg p.o. 3 times daily, oxycodoneAPAP every 4 hours for breakthrough pain, cyclobenzaprine 10 mg p.o. twice daily Patient with oral blisters/rash due to morphine. Her more phone scaled analgesia added for breakthrough while n.p.o. Tylenol scheduled IV while unable to tolerate p.o., convert to p.o. when able to tolerate CT consistent with overflow diarrhea, suspect chronic opioid use as above - Continue nortriptaline, pregabalin Peripheral artery disease Continue aspirin Statin? DVT PPx: Heparin Diet: DM CODE STATUS: Full Dispo: Med/Surg (2) Diabetic foot ulcer: (3) Acute leg pain: (4) History of right below knee amputation: (5) Opioid dependence: (6) Anxiety: (7) Iron deficiency anemia: (8) Hyperglycemia due to type 2 diabetes mellitus: (9) Diabetic peripheral neuropathy: (10) Depression: (11) HTN (hypertension): (12) MRSA (methicillin resistant staph aureus) culture positive: (13) Diabetes mellitus type 2, uncontrolled: (14) Nonobstructive atherosclerosis of coronary artery: (15) History of cardiac cath: History of Present Illness Primary Care Provider: DO Mariana Henao is a 56-year-old female with recurrent infections for right foot infections, amputations, and chronic pain who presents to the emergency department with concern for sepsis and intractable nausea/vomiting. On initial assessment she is afebrile, tachycardic, mildly hypertensive in the setting of acute pain Recent history of BKA right on 12/22 01/11 admission for sepsis with C. difficile colitis, toxin negative Recently discharged 3 days ago for a left foot infection treated with IV antibiotics, transition to Keflex/Doxy following surgical debridement Currently with nausea, vomiting, abdominal pain, watery diarrhea of 1 day. Has not been able to keep medications down including antibiotics and Percocet N/V 1 day. Emesis very dark, greenish with fecal odor. Diarrhea started 1 day ago, progressive worse. Completely liquid. Brown/dark brown Chills, sweats with vomiting. No fevers. No shortness of breath at assessment, feels a little SoB when vomiting. No chest pain, abdomen/flank pressure Denies abdominal swelling L food red, swollen. Reports erythema has spread at the top of the foot, and ulcer at the bottom has expanded towards the outside of the foot compared to discharge. Very painful. R arm, R forearm itching R stump 'doing awesome' Admitting labs: Leukocytosis to 17.75 Hemoglobin normal NLR approximately 7 Sodium 134, potassium normal Creatinine 0.47, baseline is normal BSG 262 Magnesium low at 1.6, phosphorus normal No transaminitis, alk phos chronically mildly elevated Stool PCR panel negative COVID-negative CTA/P: No acute intra-abdominal/intrapelvic abnormality. No bowel obstruction. Moderate to extensive colonic fecal retention. Nonobstructing right nephrolithiasis. Past appendectomy/cholecystectomy is noted. EKG: Sinus tach, QTC 444 Medical History: Reviewed Medications: Reviewed Surgical History: Reviewed Allergies: Reviewed Social History: Reviewed Code Status: Full Code Allergies Allergy/AdvReac Type Severity Reaction Status Date / Time morphine Allergy Severe blisters Verified 03/08/22 16:16 in mouth Sulfa (Sulfonamide Allergy Severe rash/swelli Verified 03/08/22 16:16 Antibiotics) ng iron [From Venofer] Allergy Intermediate Hypertensio Verified 03/08/22 16:16 n vancomycin Allergy Intermediate YULIYA Verified 03/08/22 16:16 SYNDROME---CAN TAKE IF VERY SLOW DRIP. amoxicillin [From Augmentin] Allergy Mild itching/power Verified 03/08/22 16:16 h clavulanic acid Allergy Mild itching/power Verified 03/08/22 16:16 [From Augmentin] h Home Medications Medication Instructions Recorded Confirmed Type nortriptyline 50 mg capsule 100 mg PO HS 10/19/20 03/08/22 History (Pamelor) ropinirole 2 mg tablet 4 mg PO HS 10/19/20 03/08/22 History lancets (OneTouch UltraSoft #100 ea 11/12/20 03/08/22 History Lancets) metoprolol succinate 50 mg 50 mg PO QAM 03/05/21 03/08/22 History tablet,extended release 24 hr (Toprol XL) aspirin 81 mg tablet,delayed 81 mg PO BID #60 tabs 10/04/21 03/08/22 Rx release (Melissa Low Dose Aspirin) lorazepam 1 mg tablet (Ativan) 1 mg PO TID PRN Anxiety 11/04/21 03/08/22 History cyclobenzaprine 10 mg tablet 10 mg PO BID 11/24/21 03/08/22 History metoclopramide HCl 5 mg tablet 5 mg PO AC #90 tabs 12/26/21 03/08/22 Rx oxycodone-acetaminophen 5 mg-325 2 tab PO Q4H PRN moderate to 12/26/21 03/08/22 Rx mg tablet (Percocet) severe breakthrough pain #30 tabs insulin glargine 100 unit/mL (3 40 unit subcut HS 03/08/22 03/08/22 History mL) subcutaneous pen (Lantus Solostar U-100 Insulin) insulin lispro 100 unit/mL 7 unit subcut TIDM 03/08/22 03/08/22 History subcutaneous pen ondansetron 8 mg disintegrating 8 mg translingual TID PRN Nausea 03/08/22 03/08/22 History tablet pregabalin 75 mg capsule 75 mg PO TID 03/08/22 03/08/22 History zolpidem 10 mg tablet 10 mg PO HS PRN Sleep 03/08/22 03/08/22 History amlodipine 5 mg tablet (Norvasc) 5 mg PO QAM 30 days #30 tabs 03/16/22 Rx cephalexin 500 mg capsule 500 mg PO QID 7 days #28 caps 03/16/22 Rx doxycycline hyclate 100 mg capsule 100 mg PO BID 7 days #14 caps 03/16/22 Rx Past Med/Surg History Medical History Acidosis, lactic Acute dehydration 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 No issues per anesthesia postop progress note. Anemia Cellulitis Chronic back pain Depression Diabetic peripheral neuropathy DM2 (diabetes mellitus, type 2) IDDM, A1c 07/2021-11% Gastritis Gastroenteritis GIB (gastrointestinal bleeding) History of amputation of great toe Hyperlipidemia Insulin dependent diabetes mellitus Iron deficiency anemia Nonobstructive atherosclerosis of coronary artery Numbness of lower extremity Peripheral neuropathy Right second toe ulcer Seizures Sepsis Surgical History History of cardiac cath done at [facility]; 09/22/19; LM - mild luminal irregularities. LAD - mid 20-30%, distal with myocardial bridge & 30% stenosis. L Cx - mild luminal irregularities. RCA - proximal <30% stenosis; mid/distal vessel mild plaques. PDA - mild luminal irregularities. History of esophagogastroduodenoscopy (EGD) History of right below knee amputation (12/22/21) Right Below Knee Amputation(Right) - Davon Good MD, FACS Family History Mother , age 63 Myocardial infarction Father , age 68 or 69 Myocardial infarction Brother S/P CABG (coronary artery bypass graft) Sister Myocardial infarction x 3; she is 57yo Social History Smoking Status: Unknown if ever smoked Tobacco Type: Cigarettes packs per day: 0.5; Years Smoked: 20; Cigarettes Per Day: 20; Second Hand Exposure: No; Hx Alcohol Use: No Hx Substance Use: Yes Prescribed Medications: Marijuana Last Used Substance: Days (ago) Last Used Substance Other:: 2 days ago Substance Use Type Other:: medical marijuana Preferred Language: Italian Communication Ability: Effective Visual Impairment: No Limitations Hearing Ability: Normal Holistic Pulser Required: No Beliefs That Will Affect Care: None marital status: Current Living Situation: Spouse current occupational status: unemployed 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 other: raising a grandchild as well; lives in [place] Feels Safe at Home: Yes during the past year weight has: remained stable Assistive Devices: Walker and Wheelchair Review of Systems Review of Systems: All systems reviewed & are unremarkable except as noted in Subjective Physical Exam Physical Exam: General: A&Ox3. NAD. Cooperative. HEENT: Atraumatic, normocephalic. Patient/hearing intact Pulm: CTAB A&P. -wheezes, -rales, -rhonchi. Symmetrical chest rise. No increase in work of breathing. No respiratory distress. Cardiac: Regular, tachycardic, -mrg. Radial pulses intact and symmetrical. Abdominal: Softly distended. BS diminished. No guarding/rebound Extremity: Left foot with full-thickness ulceration, extension to second/third MCP of the plantar surface new per patient. Erythema of the dorsum extending occipitally to the ankle overlying the flexor tendon appreciated. Right foot with s/p BKA, well-healing, no overlying erythema or discharge Results & Data Results & Data ([facility]) Vital Signs (Past 12 Hours) Vital Signs Temp Pulse Resp BP Pulse Ox O2 Del Method 03/19/22 12:00 101 H 16 98 03/19/22 11:50 105 H 16 98 03/19/22 11:50 189/109 H 03/19/22 11:01 103 H 18 98 03/19/22 11:01 191/110 H 03/19/22 09:56 36.5 C 116 H 17 199/89 H 99 Room Air PG Care Time/CCT Total # of Minutes Spent Total Time Spent with Patient: Total time spent is greater than 50% in coordination of care (as documented) at patient's floor/unit and/or counseling patient: Coding Level of Care Code 32543 Initial Inpt Care Lvl 2 Diagnoses Cellulitis L03.90 Diabetic foot ulcer E11.621; L97.509 Acute leg pain M79.606 History of right below knee amputation Z89.511 Opioid dependence F11.20 Anxiety F41.9 Iron deficiency anemia D50.9 Hyperglycemia due to type 2 diabetes mellitus E11.65; Z79.4 Diabetes mellitus exterminator termite insulin use: with exterminator termite use Diabetic peripheral neuropathy E11.42 Depression F32.9 HTN (hypertension) I10 MRSA (methicillin resistant staph aureus) culture positive Z22.322 Diabetes mellitus type 2, uncontrolled E11.65 Nonobstructive atherosclerosis of coronary artery I25.10 History of cardiac cath Z98.890 (1) Hyperglycemia due to type 2 diabetes mellitus Diabetes mellitus exterminator termite insulin use: with exterminator termite use Qualified Code(s): E11.65 - Type 2 diabetes mellitus with hyperglycemia; Z79.4 - meterman (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
[2022-03-19] MEDS ORDERED: VANCOMYCIN CONSULT ACTIVE PRN (13:49)
[2022-03-19] MEDS ORDERED: bisacodyL 10 MG SUPP PR PRN (13:49)
[2022-03-19] MEDS ORDERED: METOPROLOL TARTRATE 1 MG/ML VIAL IV SCH (13:55)
[2022-03-19] MEDS ORDERED: cefTRIAXone SODIUM 2,000 MG in DEXTROSE 5% 50 ML IV SCH (14:00)
[2022-03-19] MEDS ORDERED: ACETAMINOPHEN 1,000 MG/100 ML VIAL IV SCH (14:00)
[2022-03-19] MEDS ORDERED: METOPROLOL TARTRATE 1 MG/ML VIAL IV STA (14:09)
[2022-03-19] MEDS ORDERED: VANCOMYCIN HCL 1,500 MG in SODIUM CHLORIDE 0.9% 500 ML IV ONE (14:30)
--- NOTE | 2022-03-19 15:44 | Pharmacy Report ---
Pharmacy PK ABX Note - Date of Service March 19, 2022 - Assessment and Plan Assessment 56 year old F receiving vancomcyin/ceftriaxone for treatment of sepsis/intractable vomiting. Patient was recently admitted and treated for a foot infection- cultures previously grew MRSA. Patient was transitioned to doxycycline + cephalexin for discharge. Patient tachycardic with elevated wbc (17). Plan Vancomycin * Loading dose: 1500 mg IV x 1 (max rate 7.5 mg/min) * Maintenance dose: 1250 mg IV every 8 hours * Regimen is predicted to achieve target AUC/CELSO of 400-600 mg/L.hr * Trough to be ordered prior to 4th maintenance dose. Pharmacy will continue to follow and will adjust dose/frequency as necessary. Thank you. Pharmacy has transitioned to AUC monitoring for vancomycin. AUC/CELSO is the preferred PK/PD target and is associated with decreased risk of nephrotoxicity compared to traditional trough targets.
[2022-03-19] MEDS ORDERED: GLUCOSE 40% GEL 15 GM TUBE PO PRN (16:27)
[2022-03-19] MEDS ORDERED: GLUCOSE 10 TAB/TUBE PO PRN (16:27)
[2022-03-19] MEDS ORDERED: DEXTROSE 50% 50 ML SYRINGE IV PRN (16:27)
[2022-03-19] MEDS ORDERED: CARBOHYDRATES FOR HYPOGLYCEMIA PO PRN (16:27)
[2022-03-19] MEDS ORDERED: GLUCAGON FOR INJ 1 MG VIAL SQ PRN (16:27)
[2022-03-19] MEDS: PREGABALIN 75 MG CAP PO SCH ×2 (17:49→20:47)
[2022-03-19] MEDS: POLYETHYLENE (MIRALAX) 17 GM PACK PO SCH ×2 (17:49→20:41)
[2022-03-19] MEDS: HYDROmorphone INJ 1 MG/ML SYRINGE IV PRN ×2 (17:50→22:07)
[2022-03-19] MEDS: METOPROLOL SUCC 50MG EXT REL TAB PO SCH (17:50)
[2022-03-19] MEDS: INSULIN ASPART PER UNIT SC SCH ×2 (18:00→22:13)
[2022-03-19] MEDS: ONDANSETRON INJ 2 MG/ML 2 ML VIAL IV PRN (18:25)
--- NOTE | 2022-03-19 20:13 | Magnetic Resonance Report ---
MR foot LT w/o con HISTORY: 56 years-old Female Worsening cellulitis, streaking, DM, flexor t pain chronic left foot pa in with cellulitis patient presents with open wounds foot with possible osteomyelitis COMPARISON: MRI left foot 03/08/2022 TECHNIQUE: Planar multisequence MRI of the left foot obtained without the use of IV contrast. FINDINGS: There is progressively worsened subcutaneous edema of the foot, most pronounced in the dorsal forefoo t and also within the plantar tissues of the first digit and medial forefoot. Subcutaneous edema is n oted adjacent to the medial cord of the plantar fascia which is partially imaged. No drainable fluid collection. 1.3 cm cutaneous ulcer of the plantar great toe. There is mild multifocal osteoarthritis. No acute fracture, dislocation, osseous erosion or significant marrow edema. The imaged flexor and e xtensor tendons appear unremarkable. IMPRESSION: 1. No acute fracture or MR evidence of acute osteomyelitis. 2. Nonspecific subcutaneous edema of the forefoot, most pronounced in the plantar aspect of the first digit. No abscess. 3. Small plantar ulcer of the great toe. 4. Possible findings of plantar fasciitis which are partially imaged. ACT 112: Negative or not required by law. The above report was generated using voice recognition software. It may contain grammatical, syntax o r spelling errors. Electronically signed by: Puneet Howard M.D. 03/19/2022 8:12 PM
[2022-03-19] MEDS: rOPINIRole HCL 2 MG TABLET PO SCH (20:41)
[2022-03-19] MEDS: NORTRIPTYLINE HCL 25 MG CAP PO SCH (20:41)
[2022-03-19] MEDS: CYCLOBENZAPRINE HCL 10 MG TAB PO SCH (20:41)
[2022-03-19] MEDS: LORazepam 1 MG TAB PO PRN (20:47)
[2022-03-19] MEDS: HEPARIN SOD 5,000 UNIT/0.5 ML VIAL SQ SCH (20:50)
[2022-03-19] MEDS: ACETAMINOPHEN 500 MG TAB PO SCH (22:07)
[2022-03-19] MEDS: LANTUS PER UNIT CHARGE SQ SCH (22:13)
[2022-03-19] MEDS: hydrALAZINE HCL 20 MG/ML VIAL IV PRN (22:17)
[2022-03-19] MEDS: cefTRIAXone SODIUM 2,000 MG in DEXTROSE 5% 50 ML IV SCH (22:21)
[2022-03-20] MEDS: VANCOMYCIN HCL 1,250 MG in SODIUM CHLORIDE 0.9% 250 ML IV SCH ×4 (00:10→23:44)
[2022-03-20] MEDS: HYDROmorphone INJ 1 MG/ML SYRINGE IV PRN ×6 (03:00→23:44)
[2022-03-20] MEDS: ACETAMINOPHEN 500 MG TAB PO SCH ×3 (05:34→19:39)
[2022-03-20 08:01] LABS: Basophils # (auto) 0.08 K/uL (0-0.2); Basophils % (auto) 0.6 %; Eosinophils # (auto) 0.46 K/uL (0-0.50); Eosinophils % (auto) 3.6 %; Hematocrit (blood only) 35.3 % (34.1-44.9); Hemoglobin 10.8 g/dl (12.0-16.0); Immature Granulocytes # (auto) 0.04 K/uL (0.00-0.02); Immature Granulocytes % (auto) 0.3 %; Lymphocytes # (auto) 2.94 K/uL (1.2-3.4); Lymphocytes % (auto) 22.8 %; Mean Corpuscular Hemoglobin 22.8 pg (25.0-34.0); Mean Corpuscular Hgb Conc 30.6 g/dL (32.0-36.0); Mean Corpuscular Volume 74.6 fL (80.0-100.0); Mean Platelet Volume 10.2 fL (9.4-12.3); Monocytes # (auto) 0.95 K/uL (0.24-0.82); Monocytes % (auto) 7.4 %; Neutrophils # (auto) 8.45 K/uL (1.4-6.5); Neutrophils % (auto) 65.3 %; Platelet Count 324 K/uL (130-400); RDW Coefficient of Variation 16.3 % (11.5-14.5); RDW Standard Deviation 43.7 fL (36.4-46.3); Red Blood Count 4.73 M/uL (3.93-5.22); White Blood Count 12.92 K/ul (4.8-10.8)
[2022-03-20 08:18] LABS: Estimated Average Glucose 203 mg/dl; Hemoglobin A1C 8.7 % (4.5-5.6)
[2022-03-20 08:23] LABS: BUN Creatinine Ratio 22.7 (10-20); Calcium 8.7 mg/dl (8.5-10.1); Creatinine Clr Calc Pharmacy 127.8 ml/min; Est GFR (African American) 129.9 ml/min; Est GFR (Non-African American) 112.1 ml/min; Magnesium 1.9 mg/dl (1.7-2.4); Potassium 3.7 mmol/L (3.5-5.1)
[2022-03-20] MEDS: INSULIN ASPART PER UNIT SC SCH ×4 (08:57→21:56)
[2022-03-20] MEDS: LANTUS PER UNIT CHARGE SQ SCH ×2 (08:57→21:56)
[2022-03-20] MEDS ORDERED: METOPROLOL SUCC 50MG EXT REL TAB PO SCH (09:00)
[2022-03-20] MEDS: MAGNESIUM OXIDE 400 MG TAB PO SCH (09:00)
[2022-03-20] MEDS: METOPROLOL SUCC 50MG EXT REL TAB PO SCH (09:00)
[2022-03-20] MEDS: POLYETHYLENE (MIRALAX) 17 GM PACK PO SCH ×3 (09:01→21:56)
[2022-03-20] MEDS: amLODIPine BESYLATE 5 MG TAB PO SCH (09:01)
[2022-03-20] MEDS: PREGABALIN 75 MG CAP PO SCH ×3 (09:02→21:55)
[2022-03-20] MEDS: CYCLOBENZAPRINE HCL 10 MG TAB PO SCH ×2 (09:03→19:37)
[2022-03-20] MEDS: cefTRIAXone SODIUM 2,000 MG in DEXTROSE 5% 50 ML IV SCH (09:09)
[2022-03-20] MEDS: HEPARIN SOD 5,000 UNIT/0.5 ML VIAL SQ SCH ×2 (09:46→19:37)
--- NOTE | 2022-03-20 15:18 | Hospitalist Progress Note ---
Date of Service March 20, 2022 Assessment & Plan (1) Cellulitis: Plan: Mariana is a 56-year-old female with recurrent infections for right foot infections, amputations, and chronic pain who presents to the emergency department with concern for sepsis and intractable nausea/vomiting. On initial assessment she is afebrile, tachycardic, mildly hypertensive in the setting of acute pain Intractable nausea/vomiting/abdominal pain with watery diarrhea PCR panel negative. C. difficile negative. Patient with past C. difficile gene positive, + Vanco 125 mg daily dosing for prophylaxis while on antibiotics CT/A/P without acute abnormalities. Moderate to extensive colonic fecal retention Antiemetics (QT not prolonged). Given chronic opioid use and CT suspect that her diarrhea and feculent belching is actually reflective of overflow diarrhea and chronic constipation - Continue aggressive MiraLAX andreas and bisacodyl, may add mag citrate if ineffective PPI, H2 ADAT Left foot cellulitis, plantar surface diabetic ulcer Unable to keep down antibiotics, was discharged days ago and transition to Keflex/Doxy. MRSA positive culture Patient does have sulfa allergy, has not tolerated amoxicillin with itching/rash previously On assessment left foot with streaking up the first flexor tendon, progression of ulceration of the plantar surface to below the third/fourth MCP, new per patient and . Tender on ankle dorsiflexion/plantarflexion, toe flexion/extension. PT pulse intact Given worsening and streaking, repeat left foot MRI ordered Admitted on vancomycin/Rocephin. ?Worsening in setting of not being able to tolerate medications for 2 days, pt does report was improving up until she became nauseus but with streaking cellulitis on exam. Will continue IV abx while treating bowel impaction above. Wound care consulted - Foot MRI: 1. No acute fracture or MR evidence of acute osteomyelitis.2. Nonspecific subcutaneous edema of the forefoot, most pronounced in the plantar aspect of the first digit. No abscess. 3. Small plantar ulcer of the great toe.4. Possible findings of plantar fasciitis which are partially imaged. Hypertension History of poorly controlled hypertension, worsened in the setting of pain Continue amlodipine, metoprolol when tolerating PO Patient did respond well previously to low doses of lisinopril Poor p.o. tolerance to medications at this time While unable to tolerate p.o. we will add metoprolol tartrate IV 2.5 mg every 6 hours, hydralazine as needed for greater than 180 Anxiety Continue home meds. On lorazepam 1 mg p.o. 3 times daily. May spot dose IV if unable to tolerate orals due to nausea History of opioid dependence Complex history with opioid dependence with chronic pain and history of diabetic neuropathy and amputations continue home regimen of pregabalin 75 mg p.o. 3 times daily, APAP, oxycodone for breakthrough pain, cyclobenzaprine 10 mg p.o. twice daily Patient with oral blisters/rash due to morphine. Her more phone scaled analgesia added for breakthrough while n.p.o. Tolerating PO, APAP switched to PO CT consistent with overflow diarrhea, suspect chronic opioid use as above. Should be on chronic bowel regiment on dc - Continue nortriptaline, pregabalin Peripheral artery disease Continue aspirin DVT PPx: Heparin Diet: DM CODE STATUS: Full Dispo: Med/Surg (2) Diabetic foot ulcer: (3) Acute leg pain: (4) History of right below knee amputation: (5) Opioid dependence: (6) Anxiety: (7) Iron deficiency anemia: (8) Hyperglycemia due to type 2 diabetes mellitus: (9) Diabetic peripheral neuropathy: (10) Depression: (11) HTN (hypertension): (12) MRSA (methicillin resistant staph aureus) culture positive: (13) Diabetes mellitus type 2, uncontrolled: (14) Nonobstructive atherosclerosis of coronary artery: (15) History of cardiac cath: Admission and Anticipated Discharge Date Admission Date: March 19, 2022 Subjective Seen at bedside. Feels that energy is a little better. Foot feels improved, much less redness and pain today. No fever/chills/sweats. Liquid BMs, no mixed BMs. No blood. Mild nausea earlier, improved now and would like to try some PO. No CP/CP/SoB. Review of Systems Review of Systems: All systems reviewed & are unremarkable except as noted in Subjective Physical Exam Physical Exam: General: A&Ox3. NAD. Cooperative. HEENT: Atraumatic, normocephalic. Patient/hearing intact Pulm: CTAB A&P. -wheezes, -rales, -rhonchi. Symmetrical chest rise. No increase in work of breathing. No respiratory distress. Cardiac: Regular, tachycardic, -mrg. Radial pulses intact and symmetrical. Abdominal: Softly distended. BS diminished. No guarding/rebound Extremity: Left foot with full-thickness ulceration, extension to second/third MCP of the plantar surface new per patient. Erythema of the dorsum improved from prior, mild extending to the ankle overlying the flexor tendon appreciated. Right foot with s/p BKA, well-healing, no overlying erythema or discharge Results & Data Results & Data ([facility]) Vital Signs (Past 12 Hours) Vital Signs Temp Pulse Resp BP Pulse Ox O2 Del Method 03/20/22 07:33 36.6 C 91 H 12 144/80 H 97 Room Air PG Care Time/CCT Total # of Minutes Spent Total Time Spent with Patient: Total time spent is greater than 50% in coordination of care (as documented) at patient's floor/unit and/or counseling patient: Coding Level of Care Code 33558 Subseq Hosp Care Lvl 2 Diagnoses Cellulitis L03.90 Diabetic foot ulcer E11.621; L97.509 Acute leg pain M79.606 History of right below knee amputation Z89.511 Opioid dependence F11.20 Anxiety F41.9 Iron deficiency anemia D50.9 Hyperglycemia due to type 2 diabetes mellitus E11.65; Z79.4 Diabetes mellitus vermin exterminator insulin use: with vermin exterminator use Diabetic peripheral neuropathy E11.42 Depression F32.9 HTN (hypertension) I10 MRSA (methicillin resistant staph aureus) culture positive Z22.322 Diabetes mellitus type 2, uncontrolled E11.65 Nonobstructive atherosclerosis of coronary artery I25.10 History of cardiac cath Z98.890 (1) Hyperglycemia due to type 2 diabetes mellitus Diabetes mellitus usp insulin use: with usp use Qualified Code(s): E11.65 - Type 2 diabetes mellitus with hyperglycemia; Z79.4 - group home (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
[2022-03-20] MEDS: ONDANSETRON INJ 2 MG/ML 2 ML VIAL IV PRN (18:03)
[2022-03-20] MEDS: NORTRIPTYLINE HCL 25 MG CAP PO SCH (19:37)
[2022-03-20] MEDS: rOPINIRole HCL 2 MG TABLET PO SCH (19:38)
[2022-03-21] MEDS: ONDANSETRON INJ 2 MG/ML 2 ML VIAL IV PRN ×2 (03:49→09:41)
[2022-03-21] MEDS: HYDROmorphone INJ 1 MG/ML SYRINGE IV PRN ×5 (03:49→20:15)
[2022-03-21] MEDS: ACETAMINOPHEN 500 MG TAB PO SCH ×3 (05:44→21:14)
[2022-03-21] MEDS: LORazepam 1 MG TAB PO PRN (05:50)
[2022-03-21] MEDS ORDERED: VANCOMYCIN LEVEL ONE (07:30)
[2022-03-21 07:43] LABS: Basophils # (auto) 0.06 K/uL (0-0.2); Basophils % (auto) 0.7 %; Eosinophils # (auto) 0.41 K/uL (0-0.50); Eosinophils % (auto) 4.5 %; Hematocrit (blood only) 34.6 % (34.1-44.9); Hemoglobin 10.5 g/dl (12.0-16.0); Immature Granulocytes # (auto) 0.02 K/uL (0.00-0.02); Immature Granulocytes % (auto) 0.2 %; Lymphocytes # (auto) 2.51 K/uL (1.2-3.4); Lymphocytes % (auto) 27.6 %; Mean Corpuscular Hemoglobin 22.6 pg (25.0-34.0); Mean Corpuscular Hgb Conc 30.3 g/dL (32.0-36.0); Mean Corpuscular Volume 74.4 fL (80.0-100.0); Mean Platelet Volume 9.5 fL (9.4-12.3); Monocytes # (auto) 0.74 K/uL (0.24-0.82); Monocytes % (auto) 8.1 %; Neutrophils # (auto) 5.36 K/uL (1.4-6.5); Neutrophils % (auto) 58.9 %; Platelet Count 309 K/uL (130-400); RDW Coefficient of Variation 15.8 % (11.5-14.5); RDW Standard Deviation 41.9 fL (36.4-46.3); Red Blood Count 4.65 M/uL (3.93-5.22)
[2022-03-21] MEDS: cefTRIAXone SODIUM 2,000 MG in DEXTROSE 5% 50 ML IV SCH (07:56)
[2022-03-21 08:01] LABS: BUN Creatinine Ratio 23.9 (10-20); Calcium 8.9 mg/dl (8.5-10.1); Creatinine Clr Calc Pharmacy 122.2 ml/min; Est GFR (Non-African American) 110.4 ml/min; Potassium 3.9 mmol/L (3.5-5.1)
[2022-03-21] MEDS: LANTUS PER UNIT CHARGE SQ SCH ×2 (09:34→21:17)
[2022-03-21] MEDS: INSULIN ASPART PER UNIT SC SCH ×4 (09:34→21:17)
[2022-03-21] MEDS: PREGABALIN 75 MG CAP PO SCH ×3 (09:35→21:11)
[2022-03-21] MEDS: amLODIPine BESYLATE 5 MG TAB PO SCH (09:36)
[2022-03-21] MEDS: MAGNESIUM OXIDE 400 MG TAB PO SCH (09:36)
[2022-03-21] MEDS: CYCLOBENZAPRINE HCL 10 MG TAB PO SCH ×2 (09:37→21:13)
[2022-03-21] MEDS: METOPROLOL SUCC 50MG EXT REL TAB PO SCH (09:37)
[2022-03-21] MEDS: HEPARIN SOD 5,000 UNIT/0.5 ML VIAL SQ SCH ×2 (09:38→21:14)
[2022-03-21] MEDS: POLYETHYLENE (MIRALAX) 17 GM PACK PO SCH ×2 (09:38→20:14)
--- NOTE | 2022-03-21 09:41 | Pharmacy Report ---
Pharmacy PK ABX Note - Date of Service March 21, 2022 - Assessment and Plan Assessment 56 year old F receiving vancomcyin/ceftriaxone for treatment of sepsis/intractable vomiting. Patient was recently admitted and treated for a foot infection- cultures previously grew MRSA. Patient was transitioned to doxycycline + cephalexin for discharge, but patient non-compliant with regimen due to intractable nausea/vomiting. Leukocytosis improved (17 -> 9 K). 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 Plan Vancomycin * Current regimen: 1250 mg IV every 8 hours * Trough level obtained 03/21/22 resulted as 13.6 mcg/mL. This is predicted to achieve target AUC/CELSO of 400-600 mg/L.hr * Predicted AUC at steady state: 572 mg/L.hr * Continue 1250 mg IV every 8 hours * Will repeat level in the next 48-72 hours if therapy is continued and/or change in patient clinical status Pharmacy will continue to follow and will adjust dose/frequency as necessary. Thank you. Pharmacy has transitioned to AUC monitoring for vancomycin. AUC/CELSO is the preferred PK/PD target and is associated with decreased risk of nephrotoxicity compared to traditional trough targets.
[2022-03-21] MEDS: VANCOMYCIN HCL 1,250 MG in SODIUM CHLORIDE 0.9% 250 ML IV SCH ×2 (11:10→18:08)
[2022-03-21] MEDS ORDERED: MAGNESIUM HYDROXIDE SUSP 30 ML UDC PO PRN (13:31)
--- NOTE | 2022-03-21 13:42 | Hospitalist Progress Note ---
Date of Service March 21, 2022 Assessment & Plan (1) Cellulitis: Plan: Mariana is a 56-year-old female with recurrent infections for right foot infections, amputations, and chronic pain who presents to the emergency department with concern for sepsis and intractable nausea/vomiting. On initial assessment she is afebrile, tachycardic, mildly hypertensive in the setting of acute pain Intractable nausea/vomiting/abdominal pain with watery diarrhea PCR panel negative. C. difficile negative. Patient with past C. difficile gene positive, toxin negative. C diff negative on admit. CT/A/P without acute abnormalities. Moderate to extensive colonic fecal retention Antiemetics (QT not prolonged). Given chronic opioid use and CT suspect that her diarrhea and feculent belching is actually reflective of overflow diarrhea and chronic constipation - Continue aggressive MiraLAX andreas and bisacodyl, patient will trial 12 doses of milk of mag today. Continue to have mostly liquid bowel movements, did have a very small amount of pasty BM today At discharge should continue a chronic bowel regimen while on opioids, recommend senna/bisacodyl andreas + miralax prn PPI, H2 Diet as tolerated Left foot cellulitis, plantar surface diabetic ulcer Unable to keep down antibiotics, was discharged days ago and transition to Keflex/Doxy. MRSA positive culture Patient does have sulfa allergy, has not tolerated amoxicillin with itching/rash previously On assessment left foot with streaking up the first flexor tendon, progression of ulceration of the plantar surface to below the third/fourth MCP, new per pa tient and . Tender on ankle dorsiflexion/plantarflexion, toe flexion/extension. PT pulse intact Given worsening and streaking, repeat left foot MRI ordered Admitted on vancomycin/Rocephin. ?Worsening in setting of not being able to tolerate medications for 2 days, pt does report was improving up until she became nauseus but with streaking cellulitis on exam. MRSA cultures are tetracycline sensitive. Suspect she had worsening in the setting of inability to take medications rather than treatment failure, but given quick worsening with streaking should be followed closely. Defer clindamycin adjunct given improvement in risk of C. difficile Wound care consulted - Foot MRI: 1. No acute fracture or MR evidence of acute osteomyelitis.2. Nonspecific subcutaneous edema of the forefoot, most pronounced in the plantar aspect of the first digit. No abscess. 3. Small plantar ulcer of the great toe.4. Possible findings of plantar fasciitis which are partially imaged. Hypertension History of poorly controlled hypertension, worsened in the setting of pain Continue amlodipine, metoprolol when tolerating PO Patient did respond well previously to low doses of lisinopril Poor p.o. tolerance to medications at this time While unable to tolerate p.o. we will add metoprolol tartrate IV 2.5 mg every 6 hours, hydralazine as needed for greater than 180 Anxiety Continue home meds. On lorazepam 1 mg p.o. 3 times daily. May spot dose IV if unable to tolerate orals due to nausea History of opioid dependence Complex history with opioid dependence with chronic pain and history of diabetic neuropathy and amputations continue home regimen of pregabalin 75 mg p.o. 3 times daily, APAP, oxycodone for breakthrough pain, cyclobenzaprine 10 mg p.o. twice daily Patient with oral blisters/rash due to morphine. Her more phone scaled analgesia added for breakthrough while n.p.o. Continue Tylenol CT consistent with overflow diarrhea, suspect chronic opioid use as above. Should be on chronic bowel regiment on dc - Continue nortriptaline, pregabalin Peripheral artery disease Continue aspirin DVT PPx: Heparin Diet: DM CODE STATUS: Full Dispo: Med/Surg (2) Diabetic foot ulcer: (3) Acute leg pain: (4) History of right below knee amputation: (5) Opioid dependence: (6) Anxiety: (7) Iron deficiency anemia: (8) Hyperglycemia due to type 2 diabetes mellitus: (9) Diabetic peripheral neuropathy: (10) Depression: (11) HTN (hypertension): (12) MRSA (methicillin resistant staph aureus) culture positive: (13) Diabetes mellitus type 2, uncontrolled: (14) Nonobstructive atherosclerosis of coronary artery: (15) History of cardiac cath: Admission and Anticipated Discharge Date Admission Date: March 19, 2022 Subjective Seen at bedside. Red streaking at dorsum of left foot Resolved, improved and foot is much less painful to Mariana today. She has not any fevers, chills, sweats, lightheadedness, dizziness. Does still continue to have pain on the dorsum of her foot, but feels this is not throbbing like it was previously. Had mostly liquid bowel movements, had a small amount of pasty bowel movement, with otherwise liquid. No abdominal pain, has had intermittent nausea with meals none at time of assessment. Review of Systems Review of Systems: All systems reviewed & are unremarkable except as noted in Subjective Physical Exam Physical Exam: General: A&Ox3. NAD. Cooperative. HEENT: Atraumatic, normocephalic. Patient/hearing intact Pulm: CTAB A&P. -wheezes, -rales, -rhonchi. Symmetrical chest rise. No increase in work of breathing. No respiratory distress. Cardiac: Regular, tachycardic, -mrg. Radial pulses intact and symmetrical. Abdominal: Softly distended. BS diminished. No guarding/rebound Extremity: Left foot with full-thickness ulceration, extension to second/third MCP of the plantar surface. Erythema of the dorsum improved from prior, nearly resolved. Right foot with s/p BKA, well-healing, no overlying erythema or discharge Results & Data Results & Data ([facility]) Vital Signs (Past 12 Hours) Vital Signs Temp Pulse Resp BP Pulse Ox O2 Del Method 03/21/22 05:46 36.8 C 95 H 16 171/77 H 96 Room Air PG Care Time/CCT Total # of Minutes Spent Total Time Spent with Patient: Total time spent is greater than 50% in coordination of care (as documented) at patient's floor/unit and/or counseling patient: Coding Level of Care Code 07665 Subseq Hosp Care Lvl 2 Diagnoses Cellulitis L03.90 Diabetic foot ulcer E11.621; L97.509 Acute leg pain M79.606 History of right below knee amputation Z89.511 Opioid dependence F11.20 Anxiety F41.9 Iron deficiency anemia D50.9 Hyperglycemia due to type 2 diabetes mellitus E11.65; Z79.4 Diabetes mellitus group home insulin use: with adjunct faculty for medical terminology use Diabetic peripheral neuropathy E11.42 Depression F32.9 HTN (hypertension) I10 MRSA (methicillin resistant staph aureus) culture positive Z22.322 Diabetes mellitus type 2, uncontrolled E11.65 Nonobstructive atherosclerosis of coronary artery I25.10 History of cardiac cath Z98.890 (1) Hyperglycemia due to type 2 diabetes mellitus Diabetes mellitus adjunct faculty for medical terminology insulin use: with 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; Z79.4 - adjunct faculty for medical terminology (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
[2022-03-21] MEDS: MELATONIN 3 MG TAB PO PRN (21:11)
[2022-03-21] MEDS: NORTRIPTYLINE HCL 25 MG CAP PO SCH (21:12)
[2022-03-21] MEDS: rOPINIRole HCL 2 MG TABLET PO SCH (21:13)
[2022-03-22] MEDS: VANCOMYCIN HCL 1,250 MG in SODIUM CHLORIDE 0.9% 250 ML IV SCH ×3 (00:25→16:07)
[2022-03-22] MEDS: HYDROmorphone INJ 1 MG/ML SYRINGE IV PRN ×6 (00:25→21:41)
[2022-03-22] MEDS: ACETAMINOPHEN 500 MG TAB PO SCH ×3 (05:12→20:11)
[2022-03-22] MEDS: ONDANSETRON INJ 2 MG/ML 2 ML VIAL IV PRN ×2 (05:12→22:04)
[2022-03-22 06:32] LABS: Basophils # (auto) 0.09 K/uL (0-0.2); Basophils % (auto) 0.8 %; Eosinophils # (auto) 0.52 K/uL (0-0.50); Eosinophils % (auto) 4.7 %; Hematocrit (blood only) 32.3 % (34.1-44.9); Hemoglobin 10.2 g/dl (12.0-16.0); Immature Granulocytes # (auto) 0.03 K/uL (0.00-0.02); Immature Granulocytes % (auto) 0.3 %; Lymphocytes # (auto) 2.92 K/uL (1.2-3.4); Lymphocytes % (auto) 26.5 %; Mean Corpuscular Hemoglobin 23.1 pg (25.0-34.0); Mean Corpuscular Hgb Conc 31.6 g/dL (32.0-36.0); Mean Corpuscular Volume 73.1 fL (80.0-100.0); Mean Platelet Volume 9.8 fL (9.4-12.3); Monocytes # (auto) 1.11 K/uL (0.24-0.82); Monocytes % (auto) 10.1 %; Neutrophils # (auto) 6.36 K/uL (1.4-6.5); Neutrophils % (auto) 57.6 %; Platelet Count 314 K/uL (130-400); RDW Coefficient of Variation 15.8 % (11.5-14.5); RDW Standard Deviation 40.9 fL (36.4-46.3); Red Blood Count 4.42 M/uL (3.93-5.22); White Blood Count 11.03 K/ul (4.8-10.8)
[2022-03-22 06:53] LABS: BUN Creatinine Ratio 28.3 (10-20); Calcium 9.3 mg/dl (8.5-10.1); Creatinine Clr Calc Pharmacy 122.2 ml/min; Est GFR (Non-African American) 110.4 ml/min; Potassium 4.4 mmol/L (3.5-5.1)
[2022-03-22] MEDS: CYCLOBENZAPRINE HCL 10 MG TAB PO SCH ×2 (08:02→20:11)
[2022-03-22] MEDS: PREGABALIN 75 MG CAP PO SCH ×3 (08:02→20:14)
[2022-03-22] MEDS: MAGNESIUM OXIDE 400 MG TAB PO SCH (08:02)
[2022-03-22] MEDS: METOPROLOL SUCC 50MG EXT REL TAB PO SCH (08:02)
[2022-03-22] MEDS: amLODIPine BESYLATE 5 MG TAB PO SCH (08:02)
[2022-03-22] MEDS: cefTRIAXone SODIUM 2,000 MG in DEXTROSE 5% 50 ML IV SCH (08:02)
[2022-03-22] MEDS: HEPARIN SOD 5,000 UNIT/0.5 ML VIAL SQ SCH ×2 (08:03→20:12)
[2022-03-22] MEDS: POLYETHYLENE (MIRALAX) 17 GM PACK PO SCH ×2 (08:03→20:02)
[2022-03-22] MEDS: LORazepam 1 MG TAB PO PRN (08:13)
[2022-03-22] MEDS: INSULIN ASPART PER UNIT SC SCH ×4 (09:12→21:33)
[2022-03-22] MEDS: LANTUS PER UNIT CHARGE SQ SCH ×2 (09:13→21:33)
--- NOTE | 2022-03-22 10:24 | Hospitalist Progress Note ---
Date of Service March 22, 2022 Assessment & Plan (1) Cellulitis: Plan: Mariana is a 56-year-old female with recurrent infections for right foot infections, amputations, and chronic pain who presents to the emergency department with concern for sepsis and intractable nausea/vomiting. On initial assessment she is afebrile, tachycardic, mildly hypertensive in the setting of acute pain Intractable nausea/vomiting/abdominal pain with watery diarrhea PCR panel negative. C. difficile negative. Patient with past C. difficile gene positive, toxin negative. C diff negative on admit. CT/A/P without acute abnormalities. Moderate to extensive colonic fecal retention may be overflow diarrhea - Continue MiraLAX andreas and bisacodyl, Left foot cellulitis, plantar surface diabetic foot ulcer stage III Unable to keep down antibiotics, was discharged days ago and transition to Keflex/Doxy. MRSA positive culture Vancomycin/Rocephin. - Foot MRI: 1. No acute fracture or MR evidence of acute osteomyelitis.2. Nonspecific subcutaneous edema of the forefoot, most pronounced in the plantar aspect of the first digit. No abscess. 3. Small plantar ulcer of the great toe.4. Possible findings of plantar fasciitis which are partially imaged. Hypertension History of poorly controlled hypertension, worsened in the setting of pain Continue amlodipine, metoprolol Patient did respond well previously to low doses of lisinopril Anxiety Continue home meds. On lorazepam 1 mg p.o. 3 times daily. May spot dose IV if unable to tolerate orals due to nausea History of opioid dependence Complex history with opioid dependence with chronic pain and history of diabetic neuropathy and amputations continue home regimen of pregabalin 75 mg p.o. 3 times daily, APAP, oxycodone for breakthrough pain, cyclobenzaprine 10 mg p.o. twice daily Patient with oral blisters/rash due to morphine. Her more phone scaled analgesia added for breakthrough while n.p.o. Continue Tylenol CT consistent with overflow diarrhea, suspect chronic opioid use as above. Should be on chronic bowel regiment on dc - Continue nortriptyline, pregabalin Peripheral artery disease Continue aspirin DVT PPx: Heparin CODE STATUS: Full (2) Diabetic foot ulcer: (3) Acute leg pain: (4) History of right below knee amputation: (5) Opioid dependence: (6) Anxiety: (7) Iron deficiency anemia: (8) Hyperglycemia due to type 2 diabetes mellitus: (9) Diabetic peripheral neuropathy: (10) Depression: (11) HTN (hypertension): (12) MRSA (methicillin resistant staph aureus) culture positive: (13) Diabetes mellitus type 2, uncontrolled: (14) Nonobstructive atherosclerosis of coronary artery: (15) History of cardiac cath: Admission and Anticipated Discharge Date Admission Date: March 19, 2022 Subjective Patient is crying worried she is going to lose her left foot she is a large den uded area on the plantar aspect of her foot near where her toes join her foot and a small 25 sent piece stage III area on her great toe. The area on her foot on the first MTP area is at least a stage II or III ulceration. Course she has no pain and she is with neuropathy There are some redness in the dorsum of her foot but no vascular streaking she does have some capillary refill which appears to be intact Review of Systems Review of Systems: Moderate distress and fatigue no headache, no visual changes no speech or swallowing issues no chest pain, pressure or palpitations no shortness of breath, cough or wheezes no abdominal pain, nausea or vomiting, diarrhea or constipation no dysuria, hematuria or frequency no focal joint pain or swelling no back pain, CVA tenderness or radicular pain Open area to left plantar foot no focal signs of weakness does have neuropathy to her feet Emotionally distraught Physical Exam Physical Exam: The patient appeared stable with a well-healing right BKA Vital signs as documented. Head exam is normocephalic atraumatic Neck is without JVD, thyromegaly, or carotid bruits. Lungs are clear to auscultation, no focal loss of breath sounds Cardiac exam, Rhythm is regular.. No murmurs, rubs or gallops. Abdominal exam reveals normal bowel sounds, soft non tender, no masses Extremities are nonedematous and both pedal pulses are present Neurologic exam is alert and oriented, neuropathy to her left foot Skin is with been areas on the plantar aspect of her left foot Psychologically is without concerns for anxiety or depression.. Results & Data Results & Data ([facility]) Vital Signs (Past 12 Hours) Vital Signs Temp Pulse Resp BP Pulse Ox O2 Del Method 03/22/22 06:45 97.9 F 92 H 20 146/89 H 99 Room Air PG Care Time/CCT Total # of Minutes Spent Total Time Spent with Patient: Total time spent is greater than 50% in coordination of care (as documented) at patient's floor/unit and/or counseling patient: Coding Level of Care Code 62028 Subseq Hosp Care Lvl 3 Diagnoses Cellulitis L03.90 Diabetic foot ulcer E11.621; L97.509 Acute leg pain M79.606 History of right below knee amputation Z89.511 Opioid dependence F11.20 Anxiety F41.9 Iron deficiency anemia D50.9 Hyperglycemia due to type 2 diabetes mellitus E11.65; Z79.4 Diabetes mellitus long-term insulin use: with long term care phlebotomist use Diabetic peripheral neuropathy E11.42 Depression F32.9 HTN (hypertension) I10 MRSA (methicillin resistant staph aureus) culture positive Z22.322 Diabetes mellitus type 2, uncontrolled E11.65 Nonobstructive atherosclerosis of coronary artery I25.10 History of cardiac cath Z98.890 (1) Hyperglycemia due to type 2 diabetes mellitus Diabetes mellitus long term care phlebotomist insulin use: with long term care phlebotomist use Qualified Code(s): E11.65 - Type 2 diabetes mellitus with hyperglycemia; Z79.4 - jail (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
[2022-03-22] MEDS: HYDROmorphone INJ 0.5 MG/0.5 ML SYR IV PRN ×2 (16:07→20:02)
[2022-03-22] MEDS: METHYLNALTREXONE BROMIDE 12 MG/0.6 ML VIAL SQ SCH (20:02)
[2022-03-22] MEDS: rOPINIRole HCL 2 MG TABLET PO SCH (20:12)
[2022-03-22] MEDS: NORTRIPTYLINE HCL 25 MG CAP PO SCH (20:12)
[2022-03-22] MEDS: ZOLPIDEM TARTRATE 10 MG TAB PO PRN (21:41)
[2022-03-23] MEDS: VANCOMYCIN HCL 1,250 MG in SODIUM CHLORIDE 0.9% 250 ML IV SCH ×3 (00:20→16:08)
[2022-03-23] MEDS: HYDROmorphone INJ 0.5 MG/0.5 ML SYR IV PRN ×5 (00:21→21:35)
[2022-03-23] MEDS: HYDROmorphone INJ 1 MG/ML SYRINGE IV PRN ×4 (01:50→18:45)
[2022-03-23] MEDS: ONDANSETRON INJ 2 MG/ML 2 ML VIAL IV PRN (03:31)
--- NOTE | 2022-03-23 05:34 | Hospitalist Progress Note ---
Date of Service March 23, 2022 Assessment & Plan (1) Cellulitis: Plan: Mariana is a 56-year-old female with recurrent infections for right foot infections, amputations, and chronic pain who presents to the emergency department with concern for sepsis and intractable nausea/vomiting. On initial assessment she is afebrile, tachycardic, mildly hypertensive in the setting of acute pain Left foot cellulitis, plantar surface diabetic foot ulcer stage III Unable to keep down antibiotics, was discharged days ago and transition to Keflex/Doxy. MRSA positive culture Vancomycin/Rocephin. - Foot MRI: 1. No acute fracture or MR evidence of acute osteomyelitis.2. Nonspecific subcutaneous edema of the forefoot, most pronounced in the plantar aspect of the first digit. No abscess. 3. Small plantar ulcer of the great toe.4. Possible findings of plantar fasciitis which are partially imaged. Phantom pain/neuropathic pain will increase adjunctive pain medications to help with this discomfort Intractable nausea/vomiting/abdominal pain diarrhea has resolved vomiting persist may be related to diabetic gastroparesis PCR panel negative. C. difficile negative. Patient with past C. difficile gene positive, toxin negative. C diff negative on admit. CT/A/P without acute abnormalities. Moderate to extensive colonic fecal retention may be overflow diarrhea - Continue MiraLAX andreas and bisacodyl, Hypertension Pressure is better controlled Continue amlodipine, metoprolol Patient did respond well previously to low doses of lisinopril Anxiety Continue home meds. On lorazepam 1 mg p.o. 3 times daily. May spot dose IV if unable to tolerate orals due to nausea History of opioid dependence Complex history with opioid dependence with chronic pain and history of diabetic neuropathy and amputations continue home regimen of pregabalin 75 mg p.o. 3 times daily, APAP, oxycodone for breakthrough pain, cyclobenzaprine 10 mg p.o. twice daily Patient with oral blisters/rash due to morphine. Her more phone scaled analgesia added for breakthrough while n.p.o. Continue Tylenol CT consistent with overflow diarrhea, suspect chronic opioid use as above. Should be on chronic bowel regiment on dc - Continue nortriptyline, pregabalin Peripheral artery disease Continue aspirin DVT PPx: Heparin CODE STATUS: Full (2) Diabetic foot ulcer: (3) Acute leg pain: (4) History of right below knee amputation: (5) Opioid dependence: (6) Anxiety: (7) Iron deficiency anemia: (8) Hyperglycemia due to type 2 diabetes mellitus: (9) Diabetic peripheral neuropathy: (10) Depression: (11) HTN (hypertension): (12) MRSA (methicillin resistant staph aureus) culture positive: (13) Diabetes mellitus type 2, uncontrolled: (14) Nonobstructive atherosclerosis of coronary artery: (15) History of cardiac cath: Admission and Anticipated Discharge Date Admission Date: March 19, 2022 Subjective Patient's foot is less erythematous she is bothered by phantom pain the wound itself was inspected and does look slightly improved from a 1022 Review of Systems Review of Systems: Moderate distress and fatigue no headache, no visual changes no speech or swallowing issues no chest pain, pressure or palpitations no shortness of breath, cough or wheezes no abdominal pain, nausea or vomiting, diarrhea or constipation no dysuria, hematuria or frequency no focal joint pain or swelling no back pain, CVA tenderness or radicular pain Open area to left plantar foot no focal signs of weakness does have neuropathy to her feet Emotionally distraught Physical Exam Physical Exam: The patient appeared stable with a well-healing right BKA Vital signs as documented. Head exam is normocephalic atraumatic Neck is without JVD, thyromegaly, or carotid bruits. Lungs are clear to auscultation, no focal loss of breath sounds Cardiac exam, Rhythm is regular.. No murmurs, rubs or gallops. Abdominal exam reveals normal bowel sounds, soft non tender, no masses Extremities are nonedematous and both pedal pulses are present Neurologic exam is alert and oriented, neuropathy to her left foot Skin is with been areas on the plantar aspect of her left foot Psychologically is without concerns for anxiety or depression.. Results & Data Results & Data ([facility]) Vital Signs (Past 12 Hours) Vital Signs Temp Pulse Resp BP Pulse Ox O2 Del Method 03/22/22 21:00 97.9 F 86 16 171/79 H 95 Room Air PG Care Time/CCT Total # of Minutes Spent Total Time Spent with Patient: Total time spent is greater than 50% in coordination of care (as documented) at patient's floor/unit and/or counseling patient: Coding Level of Care Code 56721 Subseq Hosp Care Lvl 2 Diagnoses Cellulitis L03.90 Diabetic foot ulcer E11.621; L97.509 Acute leg pain M79.606 History of right below knee amputation Z89.511 Opioid dependence F11.20 Anxiety F41.9 Iron deficiency anemia D50.9 Hyperglycemia due to type 2 diabetes mellitus E11.65; Z79.4 Diabetes mellitus medical terminologist insulin use: with shelter use Diabetic peripheral neuropathy E11.42 Depression F32.9 HTN (hypertension) I10 MRSA (methicillin resistant staph aureus) culture positive Z22.322 Diabetes mellitus type 2, uncontrolled E11.65 Nonobstructive atherosclerosis of coronary artery I25.10 History of cardiac cath Z98.890 (1) Hyperglycemia due to type 2 diabetes mellitus Diabetes mellitus medical terminologist insulin use: with shelter use Qualified Code(s): E11.65 - Type 2 diabetes mellitus with hyperglycemia; Z79.4 - nursing home (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
[2022-03-23] MEDS: ACETAMINOPHEN 500 MG TAB PO SCH ×3 (05:53→21:13)
[2022-03-23] MEDS: PREGABALIN 100 MG CAP PO SCH ×3 (08:04→21:34)
[2022-03-23] MEDS: POLYETHYLENE (MIRALAX) 17 GM PACK PO SCH ×2 (08:05→21:13)
[2022-03-23] MEDS: METOPROLOL SUCC 50MG EXT REL TAB PO SCH (08:05)
[2022-03-23] MEDS: LANTUS PER UNIT CHARGE SQ SCH ×2 (09:38→21:38)
[2022-03-23] MEDS: INSULIN ASPART PER UNIT SC SCH ×4 (09:38→21:42)
[2022-03-23] MEDS: amLODIPine BESYLATE 5 MG TAB PO SCH (09:49)
[2022-03-23] MEDS: MAGNESIUM OXIDE 400 MG TAB PO SCH (09:49)
[2022-03-23] MEDS: HEPARIN SOD 5,000 UNIT/0.5 ML VIAL SQ SCH ×2 (09:49→21:17)
[2022-03-23] MEDS: cefTRIAXone SODIUM 2,000 MG in DEXTROSE 5% 50 ML IV SCH (09:50)
[2022-03-23] MEDS: LORazepam 1 MG TAB PO PRN (10:46)
[2022-03-23] MEDS: TRIAMCINOLONE ACET 0.5% CR 15 GM TUBE EXT PRN (12:38)
[2022-03-23] MEDS: ZOLPIDEM TARTRATE 10 MG TAB PO PRN (21:34)
[2022-03-23] MEDS: rOPINIRole HCL 2 MG TABLET PO SCH (21:36)
[2022-03-23] MEDS: NORTRIPTYLINE HCL 25 MG CAP PO SCH (23:16)
[2022-03-24] MEDS: VANCOMYCIN HCL 1,250 MG in SODIUM CHLORIDE 0.9% 250 ML IV SCH ×3 (00:07→16:39)
[2022-03-24] MEDS: HYDROmorphone INJ 1 MG/ML SYRINGE IV PRN ×5 (00:07→16:45)
[2022-03-24] MEDS: HYDROmorphone INJ 0.5 MG/0.5 ML SYR IV PRN ×5 (02:08→18:56)
[2022-03-24] MEDS: LORazepam 1 MG TAB PO PRN ×3 (04:03→18:54)
[2022-03-24] MEDS: ONDANSETRON INJ 2 MG/ML 2 ML VIAL IV PRN (04:11)
[2022-03-24] MEDS: ACETAMINOPHEN 500 MG TAB PO SCH ×3 (05:21→21:58)
[2022-03-24] MEDS ORDERED: VANCOMYCIN LEVEL ONE (07:30)
[2022-03-24] MEDS: amLODIPine BESYLATE 5 MG TAB PO SCH (08:14)
[2022-03-24] MEDS: POLYETHYLENE (MIRALAX) 17 GM PACK PO SCH ×2 (08:17→21:57)
[2022-03-24] MEDS: HEPARIN SOD 5,000 UNIT/0.5 ML VIAL SQ SCH ×2 (08:18→21:55)
[2022-03-24] MEDS: METHYLNALTREXONE BROMIDE 12 MG/0.6 ML VIAL SQ SCH (08:22)
[2022-03-24] MEDS: LANTUS PER UNIT CHARGE SQ SCH ×2 (08:44→22:14)
[2022-03-24] MEDS: INSULIN ASPART PER UNIT SC SCH ×4 (08:45→22:15)
[2022-03-24] MEDS: MAGNESIUM OXIDE 400 MG TAB PO SCH (09:06)
[2022-03-24] MEDS: METOPROLOL SUCC 50MG EXT REL TAB PO SCH (09:06)
[2022-03-24] MEDS: PREGABALIN 100 MG CAP PO SCH ×3 (09:06→21:56)
--- NOTE | 2022-03-24 10:52 | Pharmacy Report ---
Pharmacy Vanc AUC Short Note - Date of Service March 24, 2022 - Assessment & Plan Assessment 56 year old F receiving Vancomycin for treatment of foot infection. Pertinent microbiologic data includes: Foot wound positive for MRSA. Patient has been receiving Vancomycin 1250 mg IV q8h. 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 Day #6 of antimicrobial therapy. Laboratory Tests 03/24/22 06:16 Random Vancomycin 15.9 Plan Vancomycin * AUC/CELSO is the preferred PK/PD target for vancomycin * AUC guided dosing is effective and associated with decreased risk of ne phrotoxicity compared to traditional trough targets * Random level of 15.9 mcg/mL is predicted to achieve target AUC/CELSO of 400-600 mg/L.hr and may be associated with a 9% risk of nephrotoxicity * Continue dose of 1250 mg IV every 8 hours Pharmacy will continue to follow and will adjust dose/frequency as necessary. Thank you.
[2022-03-24] MEDS: cefTRIAXone SODIUM 2,000 MG in DEXTROSE 5% 50 ML IV SCH (12:22)
--- NOTE | 2022-03-24 18:50 | Hospitalist Progress Note ---
Date of Service March 24, 2022 Assessment & Plan (1) Cellulitis: Plan: Mariana is a 56-year-old female with recurrent infections for right foot infections, amputations, and chronic pain who presents to the emergency department with concern for sepsis and intractable nausea/vomiting. On initial assessment she is afebrile, tachycardic, mildly hypertensive in the setting of acute pain Left foot cellulitis, plantar surface diabetic foot ulcer stage III Unable to keep down antibiotics, was discharged days ago and transition to Keflex/Doxy. MRSA positive culture Vancomycin/Rocephin. - Foot MRI: 1. No acute fracture or MR evidence of acute osteomyelitis.2. Nonspecific subcutaneous edema of the forefoot, most pronounced in the plantar aspect of the first digit. No abscess. 3. Small plantar ulcer of the great toe.4. Possible findings of plantar fasciitis which are partially imaged. Phantom pain/neuropathic pain will increase adjunctive pain medications to help with this discomfort Given dusky nature of foot will check arterial dopplers, will start aspirin and check arterial dopplers Intractable nausea/vomiting/abdominal pain diarrhea has resolved vomiting persist may be related to diabetic gastroparesis PCR panel negative. C. difficile negative. Patient with past C. difficile gene positive, toxin negative. C diff negative on admit. CT/A/P without acute abnormalities. Moderate to extensive colonic fecal retention may be overflow diarrhea - Continue MiraLAX andreas and bisacodyl, Hypertension Pressure is better controlled Continue amlodipine, metoprolol Patient did respond well previously to low doses of lisinopril Anxiety Continue home meds. On lorazepam 1 mg p.o. 3 times daily. May spot dose IV if unable to tolerate orals due to nausea History of opioid dependence Complex history with opioid dependence with chronic pain and history of diabetic neuropathy and amputations continue home regimen of pregabalin 75 mg p.o. 3 times daily, APAP, oxycodone for breakthrough pain, cyclobenzaprine 10 mg p.o. twice daily Patient with oral blisters/rash due to morphine. Her more phone scaled analgesia added for breakthrough while n.p.o. Continue Tylenol CT consistent with overflow diarrhea, suspect chronic opioid use as above. Should be on chronic bowel regiment on dc - Continue nortriptyline, pregabalin Peripheral artery disease Continue aspirin DVT PPx: Heparin CODE STATUS: Full (2) Diabetic foot ulcer: (3) Acute leg pain: (4) History of right below knee amputation: (5) Opioid dependence: (6) Anxiety: (7) Iron deficiency anemia: (8) Hyperglycemia due to type 2 diabetes mellitus: (9) Diabetic peripheral neuropathy: (10) Depression: (11) HTN (hypertension): (12) MRSA (methicillin resistant staph aureus) culture positive: (13) Diabetes mellitus type 2, uncontrolled: (14) Nonobstructive atherosclerosis of coronary artery: (15) History of cardiac cath: Admission and Anticipated Discharge Date Admission Date: March 19, 2022 Subjective Patient's foot is less erythematous she is bothered by phantom pain the wound itself was inspected and does look to be improved from earlier Review of Systems Review of Systems: Moderate distress and fatigue no headache, no visual changes no speech or swallowing issues no chest pain, pressure or palpitations no shortness of breath, cough or wheezes no abdominal pain, nausea or vomiting, diarrhea or constipation no dysuria, hematuria or frequency no focal joint pain or swelling no back pain, CVA tenderness or radicular pain Open area to left plantar foot no focal signs of weakness does have neuropathy to her feet Emotionally distraught Physical Exam Physical Exam: The patient appeared stable with a well-healing right BKA Vital signs as documented. Head exam is normocephalic atraumatic Neck is without JVD, thyromegaly, or carotid bruits. Lungs are clear to auscultation, no focal loss of breath sounds Cardiac exam, Rhythm is regular.. No murmurs, rubs or gallops. Abdominal exam reveals normal bowel sounds, soft non tender, no masses Extremities are nonedematous and both pedal pulses are present Neurologic exam is alert and oriented, neuropathy to her left foot Skin is with been areas on the plantar aspect of her left foot Psychologically is without concerns for anxiety or depression.. Results & Data Results & Data ([facility]) Vital Signs (Past 12 Hours) Vital Signs Temp Pulse Resp BP BP Pulse Ox O2 Del Method 03/24/22 15:14 98.1 F 85 16 160/76 H 99 Room Air 03/24/22 11:29 97 F L 86 22 144/77 H 99 Room Air 03/24/22 07:45 97.5 F L 86 22 163/83 H 95 Room Air PG Care Time/CCT Total # of Minutes Spent Total Time Spent with Patient: Total time spent is greater than 50% in coordination of care (as documented) at patient's floor/unit and/or counseling patient: Coding Level of Care Code 24280 Subseq Hosp Care Lvl 2 Diagnoses Cellulitis L03.90 Diabetic foot ulcer E11.621; L97.509 Acute leg pain M79.606 History of right below knee amputation Z89.511 Opioid dependence F11.20 Anxiety F41.9 Iron deficiency anemia D50.9 Hyperglycemia due to type 2 diabetes mellitus E11.65; Z79.4 Diabetes mellitus computer terminal operator insulin use: with sn[facility] use Diabetic peripheral neuropathy E11.42 Depression F32.9 HTN (hypertension) I10 MRSA (methicillin resistant staph aureus) culture positive Z22.322 Diabetes mellitus type 2, uncontrolled E11.65 Nonobstructive atherosclerosis of coronary artery I25.10 History of cardiac cath Z98.890 (1) Hyperglycemia due to type 2 diabetes mellitus Diabetes mellitus computer terminal operator insulin use: with computer terminal operator use Qualified Code(s): E11.65 - Type 2 diabetes mellitus with hyperglycemia; Z79.4 - medical terminologist (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
[2022-03-24] MEDS ORDERED: ASPIRIN CHEW 324 MG PO STA (18:51)
--- NOTE | 2022-03-24 20:43 | Communication Note ---
Date of Service: March 24, 2022 messaged by nursing about Dilaudid prns (0.5-1mg q4h depending on pain severity) as she has been receiving 2 hours apart. Added line to the orders "Only give if at least 4 hours after any dose of Dilaudid." I was called about patient's pain later in the night. I reviewed patient's chart in more detail and attempted to transition to oral narcotic regimen as she is tolerating PO. Provided 2 doses of oxycodone 5. Pain management consulted (see 12/2021 note).
[2022-03-24] MEDS: ZOLPIDEM TARTRATE 10 MG TAB PO PRN (21:56)
[2022-03-24] MEDS: rOPINIRole HCL 2 MG TABLET PO SCH (21:56)
[2022-03-24] MEDS: NORTRIPTYLINE HCL 25 MG CAP PO SCH (21:56)
[2022-03-24] MEDS ORDERED: oxyCODONE HCL IR 5 MG TAB (IMMEDIATE RELEASE) PO STA (22:33)
[2022-03-25] MEDS: VANCOMYCIN HCL 1,250 MG in SODIUM CHLORIDE 0.9% 250 ML IV SCH ×2 (00:57→10:53)
[2022-03-25] MEDS ORDERED: oxyCODONE HCL IR 5 MG TAB (IMMEDIATE RELEASE) ONE (04:29)
[2022-03-25] MEDS ORDERED: oxyCODONE HCL IR 5 MG TAB (IMMEDIATE RELEASE) PO STA ×2 (05:32→06:46)
[2022-03-25] MEDS: ACETAMINOPHEN 500 MG TAB PO SCH ×3 (05:56→21:53)
[2022-03-25] MEDS ORDERED: traMADol HCL 50 MG TABLET PO PRN (06:48)
[2022-03-25] MEDS: METOPROLOL SUCC 50MG EXT REL TAB PO SCH (08:39)
[2022-03-25] MEDS: MAGNESIUM OXIDE 400 MG TAB PO SCH (08:39)
[2022-03-25] MEDS: ASPIRIN 81 MG ECTAB PO SCH (08:39)
[2022-03-25] MEDS: PREGABALIN 100 MG CAP PO SCH ×3 (08:39→20:35)
[2022-03-25] MEDS: amLODIPine BESYLATE 5 MG TAB PO SCH (08:39)
[2022-03-25] MEDS: HEPARIN SOD 5,000 UNIT/0.5 ML VIAL SQ SCH ×2 (08:40→20:36)
[2022-03-25] MEDS: HYDROmorphone INJ 0.5 MG/0.5 ML SYR IV PRN (08:46)
[2022-03-25] MEDS: POLYETHYLENE (MIRALAX) 17 GM PACK PO SCH ×2 (08:50→20:36)
[2022-03-25] MEDS: LANTUS PER UNIT CHARGE SQ SCH ×2 (08:58→20:48)
[2022-03-25] MEDS: INSULIN ASPART PER UNIT SC SCH ×4 (08:58→20:49)
[2022-03-25 09:05] LABS: Hematocrit (blood only) 35.6 % (34.1-44.9); Hemoglobin 11.1 g/dl (12.0-16.0); Mean Corpuscular Hemoglobin 23.1 pg (25.0-34.0); Mean Corpuscular Hgb Conc 31.2 g/dL (32.0-36.0); Mean Corpuscular Volume 74.2 fL (80.0-100.0); Mean Platelet Volume 9.7 fL (9.4-12.3); Platelet Count 403 K/uL (130-400); RDW Coefficient of Variation 15.9 % (11.5-14.5); RDW Standard Deviation 42.5 fL (36.4-46.3); White Blood Count 11.05 K/ul (4.8-10.8)
[2022-03-25] MEDS: LORazepam 1 MG TAB PO PRN ×2 (09:39→17:43)
[2022-03-25] MEDS: cefTRIAXone SODIUM 2,000 MG in DEXTROSE 5% 50 ML IV SCH (10:12)
[2022-03-25] MEDS: ONDANSETRON INJ 2 MG/ML 2 ML VIAL IV PRN (11:31)
[2022-03-25] MEDS: HYDROmorphone INJ 1 MG/ML SYRINGE IV PRN ×3 (12:18→20:34)
[2022-03-25] MEDS: oxyCODONE HCL IR 5 MG TAB (IMMEDIATE RELEASE) PO PRN ×2 (13:46→19:50)
--- NOTE | 2022-03-25 15:36 | Hospitalist Progress Note ---
Date of Service March 25, 2022 Assessment & Plan (1) Cellulitis: Plan: Mariana is a 56-year-old female with recurrent infections for right foot infections, amputations, and chronic pain who presents to the emergency department with concern for sepsis and intractable nausea/vomiting. On initial assessment she is afebrile, tachycardic, mildly hypertensive in the setting of acute pain Left foot cellulitis, plantar surface diabetic foot ulcer stage III Unable to keep down antibiotics, was discharged days ago and transition to Keflex/Doxy. MRSA positive culture Vancomycin/Rocephin. Transition to linezolid 03/25/2022 - Foot MRI: 1. No acute fracture or MR evidence of acute osteomyelitis.2. Nonspecific subcutaneous edema of the forefoot, most pronounced in the plantar aspect of the first digit. No abscess. 3. Small plantar ulcer of the great toe.4. Possible findings of plantar fasciitis which are partially imaged. Phantom pain/neuropathic pain will increase adjunctive pain medications to help with this discomfort Given dusky nature of foot will check arterial dopplers, will start aspirin and check arterial dopplers Intractable nausea/vomiting/abdominal pain diarrhea has resolved vomiting persist may be related to diabetic gastroparesis PCR panel negative. C. difficile negative. Patient with past C. difficile gene positive, toxin negative. C diff negative on admit. CT/A/P without acute abnormalities. Moderate to extensive colonic fecal retention may be overflow diarrhea - Continue MiraLAX andreas and bisacodyl, Hypertension Pressure is better controlled Continue amlodipine, metoprolol Patient did respond well previously to low doses of lisinopril Anxiety Continue home meds. On lorazepam 1 mg p.o. 3 times daily. May spot dose IV if unable to tolerate orals due to nausea History of opioid dependence Complex history with opioid dependence with chronic pain and history of diabetic neuropathy and amputations continue home regimen of pregabalin 75 mg p.o. 3 times daily, APAP, oxycodone for breakthrough pain, cyclobenzaprine 10 mg p.o. twice daily Patient with oral blisters/rash due to morphine. Her more phone scaled analgesia added for breakthrough while n.p.o. Patient will continue on parenteral hydromorphone with oxycodone added to try to reduce her parenteral need CT consistent with overflow diarrhea, suspect chronic opioid use as above. Should be on chronic bowel regiment on dc - Continue nortriptyline, pregabalin Peripheral artery disease Continue aspirin DVT PPx: Heparin CODE STATUS: Full (2) Diabetic foot ulcer: (3) Acute leg pain: (4) History of right below knee amputation: (5) Opioid dependence: (6) Anxiety: (7) Iron deficiency anemia: (8) Hyperglycemia due to type 2 diabetes mellitus: (9) Diabetic peripheral neuropathy: (10) Depression: (11) HTN (hypertension): (12) MRSA (methicillin resistant staph aureus) culture positive: (13) Diabetes mellitus type 2, uncontrolled: (14) Nonobstructive atherosclerosis of coronary artery: (15) History of cardiac cath: Admission and Anticipated Discharge Date Admission Date: March 19, 2022 Subjective Patient had issues overnight with pain control. As needed medications were begin given frequently. Concern from nursing due to excess administration of opiates covering physician discontinued intravenous opiate pain control. In the morning the patient became upset and requested to see me I went to the her room early we had a long discussion at the bedside. We will resume parenteral pain control with oral pain control overlapping to try to reduce to parenteral need. Explained the need for duplex study as her leg did appear to be dusky in nature. Reinstituted her antiplatelet agents we will transition her antibiotics to oral with broad-spectrum coverage given allergies likely Tritus and linezolid Review of Systems Review of Systems: Moderate distress and patient is fatigued and tired no headache, no visual changes no speech or swallowing issues no chest pain, pressure or palpitations no shortness of breath, cough or wheezes no abdominal pain, nausea or vomiting, diarrhea or constipation no dysuria, hematuria or frequency Right phantom leg pain left foot pain no back pain, CVA tenderness or radicular pain Open area in the plantar aspect of her left foot at the MTP area no focal signs of weakness or numbness does have phantom pain and neuropathy no complaints of anxiety or depression.. Physical Exam Physical Exam: The patient appeared well nourished but chronically ill Vital signs as documented. Head exam is normocephalic atraumatic Neck is without JVD, thyromegaly, or carotid bruits. Lungs are clear to auscultation, no focal loss of breath sounds Cardiac exam, Rhythm is regular.. No murmurs, rubs or gallops. Abdominal exam reveals normal bowel sounds, soft non tender, no masses Extremities right BKA is present left plantar aspect of foot has large open area Leetch stage III possibly seeing some bone near the first MTP area Neurologic exam is alert and oriented, no focal loss of strength or sensation Skin is with likely stage II decubitus present on admission Psychologically is without concerns for anxiety or depression.. Results & Data Results & Data ([facility]) Vital Signs (Past 12 Hours) Vital Signs Temp Pulse Resp BP BP Pulse Ox O2 Del Method 03/25/22 07:20 98.8 F 104 H 16 194/84 H 96 Room Air 03/25/22 08:49 96 H 180/81 H 03/25/22 06:07 97.9 F 102 H 22 146/111 H 96 Room Air PG Care Time/CCT Total # of Minutes Spent Total Time Spent with Patient: Total time spent is greater than 50% in coordination of care (as documented) at patient's floor/unit and/or counseling patient: Coding Level of Care Code 25727 Subseq Hosp Care Lvl 2 Diagnoses Cellulitis L03.90 Diabetic foot ulcer E11.621; L97.509 Acute leg pain M79.606 History of right below knee amputation Z89.511 Opioid dependence F11.20 Anxiety F41.9 Iron deficiency anemia D50.9 Hyperglycemia due to type 2 diabetes mellitus E11.65; Z79.4 Diabetes mellitus terminal operator insulin use: with [facility] use Diabetic peripheral neuropathy E11.42 Depression F32.9 HTN (hypertension) I10 MRSA (methicillin resistant staph aureus) culture positive Z22.322 Diabetes mellitus type 2, uncontrolled E11.65 Nonobstructive atherosclerosis of coronary artery I25.10 History of cardiac cath Z98.890 (1) Hyperglycemia due to type 2 diabetes mellitus Diabetes mellitus [facility] insulin use: with terminal operator use Qualified Code(s): E11.65 - Type 2 diabetes mellitus with hyperglycemia; Z79.4 - correction (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
--- NOTE | 2022-03-25 19:39 | Ultrasound Report ---
US arterial duplex LE LT CLINICAL HISTORY: eval for comprimised distal blood flow TECHNIQUE: Real-time grayscale and color and spectral Doppler ultrasound imaging of the left lower ex tremity arteries was performed. Measurements calculated based on NASCET criteria. COMPARISON: Comparison is made to arterial ultrasound 07/14/2021 FINDINGS: LEFT: Common femoral artery: Triphasic waveforms. Peak systolic velocity (PSV) 136 cm/s. Deep femoral artery: Triphasic waveforms. PSV 140 cm/s. Superficial femoral artery: Triphasic waveforms. PSV 205 cm/s. Popliteal artery: Triphasic waveforms. PSV 85 cm/s. Anterior tibial artery: Monophasic waveforms. PSV 114 cm/s. Posterior tibial artery: Triphasic waveforms. PSV 69 cm/s. Peroneal artery: Biphasic waveforms. PSV 41 cm/s. Dorsalis pedis: Monophasic waveforms. PSV 19 cm/s. ANKLE/BRACHIAL INDEX (NATHAN): Brachial: Right: 169 mmHg. Left: 160 mmHg. Ankle (dorsalis pedis): Left: 124 mmHg. Ankle (posterior tibial): Left: 119 mmHg. Ankle/brachial index: Left: 0.73. Reference ranges: Normal Ankle/Brachial Index (NATHAN) 1.0-1.4; 0.91-0.99 borderline; < or = 0.9 abnormal (0.7-0.89 mild, 0.51-0.69 moderate, < or = 0.5 severe peripheral arterial disease). Normal Toe/Brachial Index (TBI) > or = 0.6; < 0.6 abnormal (0.34-0.59 mild, 0.12-0.34 moderate, < or = 0.11 severe peripheral arterial disease). IMPRESSION: Hemodynamically significant stenosis in the anterior tibial and dorsalis pedis vessels. Mildly decrea sed ankle brachial index. ACT 112: Negative or not required by law. Electronically signed by: Neil Mendieat M.D. 03/25/2022 7:37 PM
[2022-03-25] MEDS: LINEZOLID 600 MG TAB PO SCH (20:35)
[2022-03-25] MEDS: rOPINIRole HCL 2 MG TABLET PO SCH (20:35)
[2022-03-25] MEDS: MELATONIN 3 MG TAB PO PRN (20:35)
[2022-03-25] MEDS: ZOLPIDEM TARTRATE 10 MG TAB PO PRN (21:53)
[2022-03-26] MEDS: HYDROmorphone INJ 1 MG/ML SYRINGE IV PRN ×5 (00:34→20:53)
[2022-03-26] MEDS: LORazepam 1 MG TAB PO PRN ×3 (01:49→20:28)
[2022-03-26] MEDS: oxyCODONE HCL IR 5 MG TAB (IMMEDIATE RELEASE) PO PRN ×4 (01:49→18:45)
[2022-03-26] MEDS: ACETAMINOPHEN 500 MG TAB PO SCH ×3 (05:51→21:06)
[2022-03-26 08:53] LABS: Creatinine Clr Calc Pharmacy 110.2 ml/min; Est GFR (African American) 123.7 ml/min; Est GFR (Non-African American) 106.7 ml/min
[2022-03-26] MEDS: INSULIN ASPART PER UNIT SC SCH ×4 (08:53→21:05)
[2022-03-26] MEDS: LANTUS PER UNIT CHARGE SQ SCH ×2 (08:54→21:06)
[2022-03-26] MEDS: PREGABALIN 100 MG CAP PO SCH ×3 (08:56→20:28)
[2022-03-26] MEDS: LINEZOLID 600 MG TAB PO SCH ×2 (08:56→20:28)
[2022-03-26] MEDS: amLODIPine BESYLATE 5 MG TAB PO SCH (08:56)
[2022-03-26] MEDS: ASPIRIN 81 MG ECTAB PO SCH (08:56)
[2022-03-26] MEDS: MAGNESIUM OXIDE 400 MG TAB PO SCH (08:57)
[2022-03-26] MEDS: HEPARIN SOD 5,000 UNIT/0.5 ML VIAL SQ SCH ×2 (08:57→20:29)
[2022-03-26] MEDS: METOPROLOL SUCC 50MG EXT REL TAB PO SCH (08:58)
[2022-03-26] MEDS: METHYLNALTREXONE BROMIDE 12 MG/0.6 ML VIAL SQ SCH (09:07)
[2022-03-26] MEDS: POLYETHYLENE (MIRALAX) 17 GM PACK PO SCH ×2 (09:08→20:19)
[2022-03-26] MEDS: hydrALAZINE HCL 20 MG/ML VIAL IV PRN (11:55)
[2022-03-26] MEDS ORDERED: HYDROmorphone INJ 1 MG/ML SYRINGE IV STA (12:27)
--- NOTE | 2022-03-26 18:15 | Hospitalist Progress Note ---
Date of Service March 26, 2022 Assessment & Plan (1) Cellulitis: Plan: Mariana is a 56-year-old female with recurrent infections for right foot infections, amputations, and chronic pain who presents to the emergency department with concern for sepsis and intractable nausea/vomiting. On initial assessment she is afebrile, tachycardic, mildly hypertensive in the setting of acute pain Left foot cellulitis, plantar surface diabetic foot ulcer stage III on admission Unable to keep down antibiotics, MRSA positive culture Vancomycin/Rocephin. Transition to linezolid 03/25/2022 - Foot MRI: 1. No acute fracture or MR evidence of acute osteomyelitis.2. Nonspecific subcutaneous edema of the forefoot, most pronounced in the plantar aspect of the first digit. No abscess. 3. Small plantar ulcer of the great toe.4. Possible findings of plantar fasciitis which are partially imaged. Phantom pain/neuropathic pain will increase adjunctive pain medications to help with this discomfort arterial dopplers 03/25/22 suggest hemodynamically sig stenosis in anterior tibial and dorsalis peds, is on asprin will have vasc consult Intractable nausea/vomiting/abdominal pain diarrhea has resolved PCR panel negative. C. difficile negative. Patient with past C. difficile gene positive, toxin negative. C diff negative on admit. CT/A/P without acute abnormalities. Moderate to extensive colonic fecal retention may be overflow diarrhea - Continue MiraLAX andreas and bisacodyl, Hypertension Pressure is better controlled unless increased pain Continue amlodipine, metoprolol Patient did respond well previously to low doses of lisinopril Anxiety Continue home meds. On lorazepam 1 mg p.o. 3 times daily. May spot dose IV if unable to tolerate orals due to nausea History of opioid dependence Complex history with opioid dependence with chronic pain and history of diabetic neuropathy and amputations continue home regimen of pregabalin 75 mg p.o. 3 times daily, APAP, oxycodone for breakthrough pain, cyclobenzaprine 10 mg p.o. twice daily Patient with oral blisters/rash due to morphine. Her more phone scaled analgesia added for breakthrough while n.p.o. Patient will continue on parenteral hydromorphone with oxycodone added to try to reduce her parenteral need CT consistent with overflow diarrhea, suspect chronic opioid use as above. Should be on chronic bowel regiment on dc - Continue nortriptyline, pregabalin Peripheral artery disease Continue aspirin DVT PPx: Heparin CODE STATUS: Full (2) Diabetic foot ulcer: (3) Acute leg pain: (4) History of right below knee amputation: (5) Opioid dependence: (6) Anxiety: (7) Iron deficiency anemia: (8) Hyperglycemia due to type 2 diabetes mellitus: (9) Diabetic peripheral neuropathy: (10) Depression: (11) HTN (hypertension): (12) MRSA (methicillin resistant staph aureus) culture positive: (13) Diabetes mellitus type 2, uncontrolled: (14) Nonobstructive atherosclerosis of coronary artery: (15) History of cardiac cath: Admission and Anticipated Discharge Date Admission Date: March 19, 2022 Subjective pt is sitting in bed crying is concerned that pain is accelerated, informed of doppler results and need for vasc consult, overall wound with slight improvement Review of Systems Review of Systems: Moderate distress and patient is fatigued and tired no headache, no visual changes no speech or swallowing issues no chest pain, pressure or palpitations no shortness of breath, cough or wheezes no abdominal pain, nausea or vomiting, diarrhea or constipation no dysuria, hematuria or frequency Right phantom leg pain left foot pain no back pain, CVA tenderness or radicular pain Open area in the plantar aspect of her left foot at the MTP area no focal signs of weakness or numbness does have phantom pain and neuropathy no complaints of anxiety or depression.. Physical Exam Physical Exam: The patient appeared well nourished but chronically ill Vital signs as documented. Head exam is normocephalic atraumatic Neck is without JVD, thyromegaly, or carotid bruits. Lungs are clear to auscultation, no focal loss of breath sounds Cardiac exam, Rhythm is regular.. No murmurs, rubs or gallops. Abdominal exam reveals normal bowel sounds, soft non tender, no masses Extremities right BKA is present left plantar aspect of foot has large open area Leetch stage III possibly seeing some bone near the first MTP area Neurologic exam is alert and oriented, no focal loss of strength or sensation Skin is with likely stage II decubitus present on admission Psychologically is without concerns for anxiety or depression.. Results & Data Results & Data ([facility]) Vital Signs (Past 12 Hours) Vital Signs Temp Pulse Pulse Resp BP Pulse Ox O2 Del Method 03/26/22 14:37 98.1 F 72 18 157/91 H 94 Room Air 03/26/22 11:59 218/103 H 03/26/22 07:21 98.4 F 88 18 168/82 H 93 Room Air PG Care Time/CCT Total # of Minutes Spent Total Time Spent with Patient: Total time spent is greater than 50% in coordination of care (as documented) at patient's floor/unit and/or counseling patient: Coding Level of Care Code 39567 Subseq Hosp Care Lvl 3 Diagnoses Cellulitis L03.90 Diabetic foot ulcer E11.621; L97.509 Acute leg pain M79.606 History of right below knee amputation Z89.511 Opioid dependence F11.20 Anxiety F41.9 Iron deficiency anemia D50.9 Hyperglycemia due to type 2 diabetes mellitus E11.65; Z79.4 Diabetes mellitus group home insulin use: 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
[2022-03-26] MEDS: MELATONIN 3 MG TAB PO PRN (20:28)
[2022-03-26] MEDS: ZOLPIDEM TARTRATE 10 MG TAB PO PRN (20:28)
[2022-03-26] MEDS: rOPINIRole HCL 2 MG TABLET PO SCH (20:28)
[2022-03-27] MEDS: HYDROmorphone INJ 1 MG/ML SYRINGE IV PRN ×6 (01:43→20:59)
[2022-03-27] MEDS: oxyCODONE HCL IR 5 MG TAB (IMMEDIATE RELEASE) PO PRN ×3 (03:39→18:49)
[2022-03-27] MEDS: ACETAMINOPHEN 500 MG TAB PO SCH ×3 (05:41→21:00)
[2022-03-27] MEDS: LORazepam 1 MG TAB PO PRN (07:45)
[2022-03-27] MEDS: INSULIN ASPART PER UNIT SC SCH ×4 (09:05→21:06)
[2022-03-27] MEDS: LANTUS PER UNIT CHARGE SQ SCH ×2 (09:10→21:05)
[2022-03-27] MEDS: MAGNESIUM OXIDE 400 MG TAB PO SCH (09:18)
[2022-03-27] MEDS: LINEZOLID 600 MG TAB PO SCH ×2 (09:18→21:05)
[2022-03-27] MEDS: ASPIRIN 81 MG ECTAB PO SCH (09:19)
[2022-03-27] MEDS: amLODIPine BESYLATE 5 MG TAB PO SCH (09:19)
[2022-03-27] MEDS: METOPROLOL SUCC 50MG EXT REL TAB PO SCH (09:20)
[2022-03-27] MEDS: HEPARIN SOD 5,000 UNIT/0.5 ML VIAL SQ SCH ×2 (09:20→21:02)
[2022-03-27 09:26] LABS: Creatinine Clr Calc Pharmacy 117.1 ml/min; Est GFR (African American) 126.2 ml/min; Est GFR (Non-African American) 108.9 ml/min
[2022-03-27] MEDS: POLYETHYLENE (MIRALAX) 17 GM PACK PO SCH ×2 (09:26→21:03)
[2022-03-27] MEDS: PREGABALIN 100 MG CAP PO SCH ×3 (09:28→21:00)
--- NOTE | 2022-03-27 11:16 | Pain Management Consultation ---
Date of Consultation March 27, 2022 Assessment & Plan (1) Diabetic foot ulcer: (2) Opioid dependence: Plan 1. Had a discussion with the patient that while oxycodone can be effective for various types of pain, it is not the most effective for neuropathic pain. Recommended she trial nucynta 50mg po q8 for better control of neuropathic complaints. The patient states that she is not inclined to trial other medications when she "just know that percocet works for me." We discussed that since her pain was not currently controlled, now might be an appropriate time to consider other options. She states she will contemplate this and let her hospitalist know if she wants to try nucynta. Methadone could also be considered. 2. Agree with nortriptylline dosing, can consider increasing lyrica to 150mg po TID if still with neuropathic complaints. 3. Thank you for this consult, please call with questions. Will sign off at this time. History of Present Illness Attending Physician: Ashok Clemons MD History of Present Illness 56year old female with a history of a right BKA on 12/22/21 and current left sole of foot stage 3 ulcer with long standing diabetes with neuropathy. She reports that her most intense pain is from her left foot characterized as burning shooting from the sole to the knee. She reports that her right BKA stump is doing fairly well "it has it's days, but mostly ok." Pain in left foot ranges between 3-8/10. She utilized 5mg IV hydromorphone and 20mg oxycodone since presentation to [facility]. She chronically utlizes nortriptylline 100mg po HS and lyrica 75mg po TID (increased during this admit to 100mg po TID). She feels that percocet has been the most effective pain medication for her in the past, though she admits she has used gabapentin and methadone in the past. She has not utilized nucynta previously (discussed at december 2021 consult with pain, but patient deferred). She denies other constitutional complaints at this time. Pain Assessment Full Body Front + Back: 1. [facility] Combined Pain Scale: 8-Debilitating - Impairs activity. Can't maintain a conversation. Pain scale - at its best (0-10): 3 Pain scale - at its worst (0-10): 8 Allergies Allergy/AdvReac Type Severity Reaction Status Date / Time morphine Allergy Severe blisters Verified 03/08/22 16:16 in mouth Sulfa (Sulfonamide Allergy Severe rash/swelli Verified 03/08/22 16:16 Antibiotics) ng iron [From Venofer] Allergy Intermediate Hypertensio Verified 03/08/22 16:16 n vancomycin Allergy Intermediate YULIYA Verified 03/08/22 16:16 SYNDROME---CAN TAKE IF VERY SLOW DRIP. amoxicillin [From Augmentin] Allergy Mild itching/power Verified 03/08/22 16:16 h clavulanic acid Allergy Mild itching/power Verified 03/08/22 16:16 [From Augmentin] h Home Medications Medication Instructions Recorded Confirmed Type nortriptyline 50 mg capsule 100 mg PO HS 10/19/20 03/08/22 History (Pamelor) ropinirole 2 mg tablet 4 mg PO HS 10/19/20 03/08/22 History lancets (OneTouch UltraSoft #100 ea 11/12/20 03/08/22 History Lancets) metoprolol succinate 50 mg 50 mg PO QAM 03/05/21 03/08/22 History tablet,extended release 24 hr (Toprol XL) aspirin 81 mg tablet,delayed 81 mg PO BID #60 tabs 10/04/21 03/19/22 Rx release (Melissa Low Dose Aspirin) lorazepam 1 mg tablet (Ativan) 1 mg PO TID PRN Anxiety 11/04/21 03/08/22 History cyclobenzaprine 10 mg tablet 10 mg PO BID 11/24/21 03/19/22 History metoclopramide HCl 5 mg tablet 5 mg PO AC #90 tabs 12/26/21 03/08/22 Rx oxycodone-acetaminophen 5 mg-325 2 tab PO Q4H PRN moderate to 12/26/21 03/08/22 Rx mg tablet (Percocet) severe breakthrough pain #30 tabs insulin glargine 100 unit/mL (3 40 unit subcut HS 03/08/22 03/08/22 History mL) subcutaneous pen (Lantus Solostar U-100 Insulin) insulin lispro 100 unit/mL 7 unit subcut TIDM 03/08/22 03/08/22 History subcutaneous pen ondansetron 8 mg disintegrating 8 mg translingual TID PRN Nausea 03/08/22 03/08/22 History tablet pregabalin 75 mg capsule 75 mg PO TID 03/08/22 03/08/22 History zolpidem 10 mg tablet 10 mg PO HS PRN Sleep 03/08/22 03/08/22 History amlodipine 5 mg tablet (Norvasc) 5 mg PO QAM 30 days #30 tabs 03/16/22 03/19/22 Rx cephalexin 500 mg capsule 500 mg PO QID 7 days #28 caps 03/16/22 03/19/22 Rx doxycycline hyclate 100 mg capsule 100 mg PO BID 7 days #14 caps 03/16/22 Rx Pain History Pain Intensity Pain scale - at its best (0-10): 3 Pain scale - at its worst (0-10): 8 Patient History Medical History Acidosis, lactic Acute dehydration 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 No issues per anesthesia postop progress note. Anemia Cellulitis Chronic back pain Depression Diabetic peripheral neuropathy DM2 (diabetes mellitus, type 2) IDDM, A1c 07/2021-11% Gastritis Gastroenteritis GIB (gastrointestinal bleeding) History of amputation of great toe Hyperlipidemia Insulin dependent diabetes mellitus Iron deficiency anemia Nonobstructive atherosclerosis of coronary artery Numbness of lower extremity Peripheral neuropathy Right second toe ulcer Seizures Sepsis Surgical History History of cardiac cath done at [facility]; 09/22/19; LM - mild luminal irregularities. LAD - mid 20-30%, distal with myocardial bridge & 30% stenosis. L Cx - mild luminal irregularities. RCA - proximal <30% stenosis; mid/distal vessel mild plaques. PDA - mild luminal irregularities. History of esophagogastroduodenoscopy (EGD) History of right below knee amputation (12/22/21) Right Below Knee Amputation(Right) - Davon Good MD, FACS Family History Mother , age 63 Myocardial infarction Father , age 68 or 69 Myocardial infarction Brother S/P CABG (coronary artery bypass graft) Sister Myocardial infarction x 3; she is 57yo Social History Smoking Status: Current every day smoker Tobacco Type: Cigarettes packs per day: 0.5; Years Smoked: 20; Cigarettes Per Day: 20; Second Hand Exposure: No; Hx Alcohol Use: No Hx Substance Use: Yes Prescribed Medications: Marijuana Last Used Substance: Days (ago) Last Used Substance Other:: 2 days ago Substance Use Type Other:: medical marijuana Preferred Language: Mosotho Communication Ability: Effective Visual Impairment: No Limitations Hearing Ability: Normal Kettle Operator Required: No Beliefs That Will Affect Care: None marital status: Current Living Situation: Spouse current occupational status: unemployed 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 other: raising a grandchild as well; lives in [place] Feels Safe at Home: Yes Safety Concerns: Feels Safe At This Time during the past year weight has: remained stable Assistive Devices: Walker and Wheelchair Physical Exam 2 Constitutional: WD/WN, vitals as above well developed and well nourished; no acute distress Eyes: PERRL, conjunctivae normal, anicteric sclerae Respiratory: normal respiratory effort; no respiratory distress Musculoskeletal: Extremities: strength 5/5 throughout (grossly (exception R BKA)), + amputation noted (right BKA) and + foot abnormality (ulcer sole) Left Psychiatric: A+Ox3, euthymic affect Results (Pain [facility]) Diagnostic Review MRI: non enhanced and reports reviewed MRI Findings: 03/19/22 MR foot LT w/o con HISTORY: 56 years-old Female Worsening cellulitis, streaking, DM, flexor t pain chronic left foot pain with cellulitis patient presents with open wounds foot with possible osteomyelitis COMPARISON: MRI left foot 03/08/2022 TECHNIQUE: Planar multisequence MRI of the left foot obtained without the use of IV contrast. FINDINGS: There is progressively worsened subcutaneous edema of the foot, most pronounced in the dorsal forefoot and also within the plantar tissues of the first digit and medial forefoot. Subcutaneous edema is noted adjacent to the medial cord of the plantar fascia which is partially imaged. No drainable fluid collection. 1.3 cm cutaneous ulcer of the plantar great toe. There is mild multifocal osteoarthritis. No acute fracture, dislocation, osseous erosion or significant marrow edema. The imaged flexor and extensor tendons appear unremarkable. IMPRESSION: 1. No acute fracture or MR evidence of acute osteomyelitis. 2. Nonspecific subcutaneous edema of the forefoot, most pronounced in the plantar aspect of the first digit. No abscess. 3. Small plantar ulcer of the great toe. 4. Possible findings of plantar fasciitis which are partially imaged. Other Findings: 03/25/22 LE duplex US arterial duplex LE LT CLINICAL HISTORY: eval for comprimised distal blood flow TECHNIQUE: Real-time grayscale and color and spectral Doppler ultrasound imaging of the left lower extremity arteries was performed. Measurements calculated based on NASCET criteria. COMPARISON: Comparison is made to arterial ultrasound 07/14/2021 FINDINGS: LEFT: Common femoral artery: Triphasic waveforms. Peak systolic velocity (PSV) 136 cm/s. Deep femoral artery: Triphasic waveforms. PSV 140 cm/s. Superficial femoral artery: Triphasic waveforms. PSV 205 cm/s. Popliteal artery: Triphasic waveforms. PSV 85 cm/s. Anterior tibial artery: Monophasic waveforms. PSV 114 cm/s. Posterior tibial artery: Triphasic waveforms. PSV 69 cm/s. Peroneal artery: Biphasic waveforms. PSV 41 cm/s. Dorsalis pedis: Monophasic waveforms. PSV 19 cm/s. ANKLE/BRACHIAL INDEX (NATHAN): Brachial: Right: 169 mmHg. Left: 160 mmHg. Ankle (dorsalis pedis): Left: 124 mmHg. Ankle (posterior tibial): Left: 119 mmHg. Ankle/brachial index: Left: 0.73. Reference ranges: Normal Ankle/Brachial Index (NATHAN) 1.0-1.4; 0.91-0.99 borderline; < or = 0.9 abnormal (0.7-0.89 mild, 0.51-0.69 moderate, < or = 0.5 severe peripheral arterial disease). Normal Toe/Brachial Index (TBI) > or = 0.6; < 0.6 abnormal (0.34-0.59 mild, 0.12-0.34 moderate, < or = 0.11 severe peripheral arterial disease). IMPRESSION: Hemodynamically significant stenosis in the anterior tibial and dorsalis pedis vessels. Mildly decreased ankle brachial index. Previous Records Review Previous Records: personally reviewed by me Previous Records Findings: PDMP reviewed. Multiple pharmacies/multiple prescribers noted
[2022-03-27] MEDS: ONDANSETRON INJ 2 MG/ML 2 ML VIAL IV PRN ×2 (12:17→22:42)
--- NOTE | 2022-03-27 13:38 | Hospitalist Progress Note ---
Date of Service March 27, 2022 Assessment & Plan (1) Cellulitis: Plan: Mariana is a 56-year-old female with recurrent infections for right foot infections, amputations, and chronic pain who presents to the emergency department with concern for sepsis and intractable nausea/vomiting. Sepsis and Osteomyelitis have been ruled out Left foot cellulitis, plantar surface diabetic foot ulcer stage III on admission Unable to keep down antibiotics, MRSA positive culture initiated on Vancomycin/Rocephin. Transitioned to linezolid 03/25/2022(had to hold nortriptyline) - Foot MRI: 1. No acute fracture or MR evidence of acute osteomyelitis.2. Nonspecific subcutaneous edema of the forefoot, most pronounced in the plantar aspect of the first digit. No abscess. 3. Small plantar ulcer of the great toe.4. Possible findings of plantar fasciitis which are partially imaged. Phantom pain/neuropathic pain will increase adjunctive pain medications to help with this discomfort arterial Doppler 03/25/22 suggest hemodynamically sig stenosis in anterior tibial and dorsalis peds, is on aspirin will have vasc consult Intractable nausea/vomiting/abdominal pain diarrhea has resolved PCR panel negative. C. difficile negative. Patient with past C. difficile gene positive, toxin negative. C diff negative on admit. CT/A/P without acute abnormalities. Moderate to extensive colonic fecal retention may be overflow diarrhea - Continue MiraLAX andreas and bisacodyl, Hypertension Pressure is better controlled unless increased pain Continue amlodipine, metoprolol Patient did respond well previously to low doses of lisinopril Anxiety Continue home meds. On lorazepam 1 mg p.o. 3 times daily. May spot dose IV if unable to tolerate orals due to nausea History of opioid dependence Complex history with opioid dependence with chronic pain and history of diabetic neuropathy and amputations continue home regimen of pregabalin 75 mg p.o. 3 times daily, APAP, oxycodone for breakthrough pain, cyclobenzaprine 10 mg p.o. twice daily Patient with oral blisters/rash due to morphine. Her more phone scaled analgesia added for breakthrough while n.p.o. Patient will continue on parenteral hydromorphone with oxycodone added to try to reduce her parenteral need CT consistent with overflow diarrhea, suspect chronic opioid use as above. Should be on chronic bowel regiment on dc - Continue nortriptyline, pregabalin Peripheral artery disease Continue aspirin DVT PPx: Heparin CODE STATUS: Full (2) Diabetic foot ulcer: (3) Acute leg pain: (4) History of right below knee amputation: (5) Opioid dependence: (6) Anxiety: (7) Iron deficiency anemia: (8) Hyperglycemia due to type 2 diabetes mellitus: (9) Diabetic peripheral neuropathy: (10) Depression: (11) HTN (hypertension): (12) MRSA (methicillin resistant staph aureus) culture positive: (13) Diabetes mellitus type 2, uncontrolled: (14) Nonobstructive atherosclerosis of coronary artery: (15) History of cardiac cath: Admission and Anticipated Discharge Date Admission Date: March 19, 2022 Subjective PT is anxious about the contnet of doppler results suggesting some arterial occlusion and need for vasc consult, I spoke to Dr Lin and he will see 03/26/22, overall wound with slight improvement however some areas of bleeding Review of Systems Review of Systems: Moderate distress and patient is fatigued and tired no headache, no visual changes no speech or swallowing issues no chest pain, pressure or palpitations no shortness of breath, cough or wheezes no abdominal pain, nausea or vomiting, diarrhea or constipation no dysuria, hematuria or frequency Right phantom leg pain left foot pain no back pain, CVA tenderness or radicular pain Open area in the plantar aspect of her left foot at the MTP area no focal signs of weakness or numbness does have phantom pain and neuropathy no complaints of anxiety or depression.. Physical Exam Physical Exam: The patient appeared well nourished but chronically ill Vital signs as documented. Head exam is normocephalic atraumatic Neck is without JVD, thyromegaly, or carotid bruits. Lungs are clear to auscultation, no focal loss of breath sounds Cardiac exam, Rhythm is regular.. No murmurs, rubs or gallops. Abdominal exam reveals normal bowel sounds, soft non tender, no masses Extremities right BKA is present left plantar aspect of foot has large open area Leetch stage III possibly seeing some bone near the first MTP area Neurologic exam is alert and oriented, no focal loss of strength or sensation Skin is with likely stage II decubitus present on admission Psychologically is without concerns for anxiety or depression.. Results & Data Results & Data ([facility]) Vital Signs (Past 12 Hours) Vital Signs Temp Pulse Resp BP BP Pulse Ox O2 Del Method 03/27/22 07:24 98.2 F 84 18 153/68 H 97 Room Air 03/27/22 06:30 98.5 F 80 18 124/72 99 Room Air PG Care Time/CCT Total # of Minutes Spent Total Time Spent with Patient: Total time spent is greater than 50% in coordination of care (as documented) at patient's floor/unit and/or counseling patient: Coding Level of Care Code 20718 Subseq Hosp Care Lvl 3 Diagnoses Cellulitis L03.90 Diabetic foot ulcer E11.621; L97.509 Acute leg pain M79.606 History of right below knee amputation Z89.511 Opioid dependence F11.20 Anxiety F41.9 Iron deficiency anemia D50.9 Hyperglycemia due to type 2 diabetes mellitus E11.65; Z79.4 Diabetes mellitus terminal supervisor insulin use: with terminal supervisor use Diabetic peripheral neuropathy E11.42 Depression F32.9 HTN (hypertension) I10 MRSA (methicillin resistant staph aureus) culture positive Z22.322 Diabetes mellitus type 2, uncontrolled E11.65 Nonobstructive atherosclerosis of coronary artery I25.10 History of cardiac cath Z98.890 (1) Hyperglycemia due to type 2 diabetes mellitus Diabetes mellitus terminal supervisor insulin use: with terminal supervisor use Qualified Code(s): E11.65 - Type 2 diabetes mellitus with hyperglycemia; Z79.4 - intermediate card tender (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
[2022-03-27] MEDS ORDERED: LIDOCAINE 1% LOCAL 20 ML VIAL ONE (13:44)
[2022-03-27] MEDS ORDERED: MIDAZOLAM HCL 5 MG/ML 1 ML VIAL ONE (14:04)
[2022-03-27] MEDS ORDERED: fentaNYL citrate 100 MCG/2 ML VIAL ONE (14:04)
[2022-03-27] MEDS ORDERED: niCARdipine HCL INJ 2.5 MG/ML 10 ML AMP ONE (14:18)
[2022-03-27] MEDS ORDERED: NITROGLYCERIN/D5W 100MCG/ML 20ML SYR ONE (14:18)
--- NOTE | 2022-03-27 14:31 | Pre Anesthesia Assessment ---
Date of Service March 27, 2022 Pre Sedation Assessment Vital Signs Temp Pulse Pulse Resp BP BP Pulse Ox 03/27/22 07:24 98.2 F 84 18 153/68 H 97 03/27/22 06:30 98.5 F 80 18 124/72 99 03/26/22 21:36 97.9 F 78 18 143/75 H 97 03/26/22 14:37 98.1 F 72 18 157/91 H 94 O2 Del Method 03/27/22 07:24 Room Air 03/27/22 06:30 Room Air 03/26/22 21:36 Room Air 03/26/22 14:37 Room Air Cardiovascular RRR, no murmur, no edema Respiratory normal respiratory effort, lungs clear to auscultation Pre-Sedation Airway Assessment Smoking Status: Current every day smoker Hx Sleep Apnea: No Hx Difficult Intubation: No Short, Thick Neck: No Thyromental Distance: > or= 3.5 Finger Breadths Oral Cavity: + WNL Mallampati Class: III ASA: ASA3 Procedure Planning Contraindications for Sedation: none Current Medications Reviewed: Yes Notes The planned sedation has been discussed with the patient. Informed Consent was obtained. I have identified the patient, determined the appropriateness of sedation and have assessed the patient immediately prior to the procedure. All medicine(s) and interventions are by my order.
[2022-03-27] MEDS ORDERED: HEPARIN (PORCINE) 1000 UNIT/ML 10 ML (CATH LAB USE ONLY) ONE (14:48)
[2022-03-27] MEDS ORDERED: CLOPIDOGREL BISULFATE 300 MG TAB ONE (15:48)
--- NOTE | 2022-03-27 16:15 | Post Anesthesia Assessment ---
Date of Service March 27, 2022 Post Sedation Assessment Vital Signs Temp Pulse Pulse Resp BP BP Pulse Ox 03/27/22 16:05 83 16 125/83 98 03/27/22 15:50 85 16 138/85 98 03/27/22 14:42 70 16 189/92 H 98 03/27/22 07:24 98.2 F 84 18 153/68 H 97 03/27/22 06:30 98.5 F 80 18 124/72 99 03/26/22 21:36 97.9 F 78 18 143/75 H 97 O2 Del Method 03/27/22 16:05 Room Air 03/27/22 15:50 Room Air 03/27/22 14:42 Room Air 03/27/22 07:24 Room Air 03/27/22 06:30 Room Air 03/26/22 21:36 Room Air Recovery Score Activity: Moves 4 extremities Respiration: Deep Breath/Cough Circulation: +/-20% PreAnes Value Consciousness: Fully Awake Oxygen Saturation: > 92% On Room Air Post Anesthesia Score: 10 Discharge Sedation Level of Care: Fast Track Phase II Post Sedation Plan On clinical assessment, the patient appears to have tolerated the sedation without complications. Patient is recovering as anticipated. Patient will continue to be monitored by nursing and may be discharged when sedation discharge criteria are met per below protocol. Upon Completions of procedure up to 15 minutes continue every 5 minute vital signs and the P.A.R. score; then discharge to a Phase I or Fast Track to Phase II per the following guidelines: * Discharge Patient to appropriate Phase II area if PAR is 8 or greater or return to pre- procedure baseline. The post - procedure orders will be as directed. * If PAR score is less than 8 or not return to pre-procedure baseline then patient will follow Phase I monitoring till PAR is reached for Phase II. The Phase I may be done in procedure room or may call to secure a Phase I area. * If naloxone or flumazenil are used for reversal, hold in Phase I for continued monitoring from when last reversal dose was given for a minimum of 60 minutes or longer pending the nurse and/or physician discretion of patient condition before discharge to Phase II. Please call the Sedation Physician to re-evaluate and complete post-note for discharge to Phase II area. Do NOT discharge from procedure sedation or Phase 1 until post- sedation evaluation note is complete by procedure /sedation MD Sedation Discharge Instructions to be given to the patient at discharge to home.
--- NOTE | 2022-03-27 16:31 | Vascular Medicine Consultation ---
Date of Consultation March 27, 2022 Assessment & Plan (1) Diabetic foot ulcer: 2. PAD 3.Insulin-dependent diabetes 4. Nonobstructive coronary disease 5. History of tobacco use 6. Cellulitis 7. Chronic pain Diabetic foot ulcer and threatened left lower extremity. Arterial duplex suggests possible SFA disease as well as KERLINE disease. Previously noted to have severe left KERLINE disease on CTA 07/2021. TBI previously normal now mildly reduced. With high risk wound recommend angiogram to evaluate for revascularization options. Procedure discussed with patient including risk, benefits and she is when to proceed. Recommendations pending findings. History of Present Illness Attending Physician: Ashok Clemons MD History of Present Illness Mrs. Witt is a very pleasant 56 year old woman seen today due to left diabetic foot ulcer and PAD. Known to me from prior hospitalizations. Has had a difficult course since 07/2021 and was initially seen for right great toe diabetic foot ulcer eventually complicated by osteomyelitis, hindfoot abscess requiring interval right TMA 12/2021. Early in treatment course underwent angiogram 08/15/2021 on which had right lower extremity 30% proximal SFA stenosis, 40 to 50% proximal KERLINE stenosis with brisk three-vessel runoff to the foot, intact pedal arch and normal angiographic wound blush at great toe amputation site. More recently has been dealing with a left foot DFU involving great toe and plantar aspect of the forefoot. MRI negative for osteomyelitis. Prior wound culture with MRSA, now on linezolid. Arterial duplex 03/25/2022: Left NATHAN 0.73, TBI 0.62 (toe pressure 104). >50% stenosis mid SFA (PSV 205). Monophasic KERLINE/DPA waveforms with proximal KERLINE stenosis. Medical history: Insulin dependent type DM, dyslipidemia, hypertension, nonobstructive coronary artery disease, history of tobacco use, spinal stenosis. Prior vascular studies: CTA 07/2021: Mild distal right external iliac stenosis, mild to moderate b ilateral SFA disease. Severe stenosis proximal left KERLINE. Moderate proximal right KERLINE. NATHAN/TBI 07/2021: Right NATHAN 0.96, left 1.1. Right third toe pressure 184 TBI 1.39. Left TBI 1.13. Social history: Lives with . Quit smoking about 6 months ago Allergies Allergy/AdvReac Type Severity Reaction Status Date / Time morphine Allergy Severe blisters Verified 03/08/22 16:16 in mouth Sulfa (Sulfonamide Allergy Severe rash/swelli Verified 03/08/22 16:16 Antibiotics) ng iron [From Venofer] Allergy Intermediate Hypertensio Verified 03/08/22 16:16 n vancomycin Allergy Intermediate YULIYA Verified 03/08/22 16:16 SYNDROME---CAN TAKE IF VERY SLOW DRIP. amoxicillin [From Augmentin] Allergy Mild itching/power Verified 03/08/22 16:16 h clavulanic acid Allergy Mild itching/power Verified 03/08/22 16:16 [From Augmentin] h Home Medications Medication Instructions Recorded Confirmed Type nortriptyline 50 mg capsule 100 mg PO HS 10/19/20 03/08/22 History (Pamelor) ropinirole 2 mg tablet 4 mg PO HS 10/19/20 03/08/22 History lancets (OneTouch UltraSoft #100 ea 11/12/20 03/08/22 History Lancets) metoprolol succinate 50 mg 50 mg PO QAM 03/05/21 03/08/22 History tablet,extended release 24 hr (Toprol XL) aspirin 81 mg tablet,delayed 81 mg PO BID #60 tabs 10/04/21 03/19/22 Rx release (Melissa Low Dose Aspirin) lorazepam 1 mg tablet (Ativan) 1 mg PO TID PRN Anxiety 11/04/21 03/08/22 History cyclobenzaprine 10 mg tablet 10 mg PO BID 11/24/21 03/19/22 History metoclopramide HCl 5 mg tablet 5 mg PO AC #90 tabs 12/26/21 03/08/22 Rx oxycodone-acetaminophen 5 mg-325 2 tab PO Q4H PRN moderate to 12/26/21 03/08/22 Rx mg tablet (Percocet) severe breakthrough pain #30 tabs insulin glargine 100 unit/mL (3 40 unit subcut HS 03/08/22 03/08/22 History mL) subcutaneous pen (Lantus Solostar U-100 Insulin) insulin lispro 100 unit/mL 7 unit subcut TIDM 03/08/22 03/08/22 History subcutaneous pen ondansetron 8 mg disintegrating 8 mg translingual TID PRN Nausea 03/08/22 03/08/22 History tablet pregabalin 75 mg capsule 75 mg PO TID 03/08/22 03/08/22 History zolpidem 10 mg tablet 10 mg PO HS PRN Sleep 03/08/22 03/08/22 History amlodipine 5 mg tablet (Norvasc) 5 mg PO QAM 30 days #30 tabs 03/16/22 03/19/22 Rx cephalexin 500 mg capsule 500 mg PO QID 7 days #28 caps 03/16/22 03/19/22 Rx doxycycline hyclate 100 mg capsule 100 mg PO BID 7 days #14 caps 03/16/22 Rx Patient History Medical History Acidosis, lactic Acute dehydration 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 No issues per anesthesia postop progress note. Anemia Cellulitis Chronic back pain Depression Diabetic peripheral neuropathy DM2 (diabetes mellitus, type 2) IDDM, A1c 07/2021-11% Gastritis Gastroenteritis GIB (gastrointestinal bleeding) History of amputation of great toe Hyperlipidemia Insulin dependent diabetes mellitus Iron deficiency anemia Nonobstructive atherosclerosis of coronary artery Numbness of lower extremity Peripheral neuropathy Right second toe ulcer Seizures Sepsis Surgical History History of cardiac cath done at [facility]; 09/22/19; LM - mild luminal irregularities. LAD - mid 20-30%, distal with myocardial bridge & 30% stenosis. L Cx - mild luminal irregularities. RCA - proximal <30% stenosis; mid/distal vessel mild plaques. PDA - mild luminal irregularities. History of esophagogastroduodenoscopy (EGD) History of right below knee amputation (12/22/21) Right Below Knee Amputation(Right) - Davon Good MD, FACS Family History Mother , age 63 Myocardial infarction Father , age 68 or 69 Myocardial infarction Brother S/P CABG (coronary artery bypass graft) Sister Myocardial infarction x 3; she is 57yo Social History Smoking Status: Current every day smoker Tobacco Type: Cigarettes packs per day: 0.5; Years Smoked: 20; Cigarettes Per Day: 20; Second Hand Exposure: No; Hx Alcohol Use: No Hx Substance Use: No Preferred Language: Palauan Communication Ability: Effective Visual Impairment: No Limitations Hearing Ability: Normal Foxer Required: No Beliefs That Will Affect Care: None marital status: Current Living Situation: Spouse current occupational status: unemployed 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 other: raising a grandchild as well; lives in [place] Feels Safe at Home: Yes Safety Concerns: Feels Safe At This Time during the past year weight has: remained stable Assistive Devices: Walker and Wheelchair Review of Systems Review of Systems: All systems reviewed & are unremarkable except as noted in HPI & below Physical Exam Physical Exam: General: No acute distress, uncomfortable HEENT: Head is normal. Sclerae anicteric. Lungs: Clear to auscultation bilaterally without rales, rhonchi or wheezes. Cardiac: Regular rate and rhythm. S1-S2 normal. No appreciable murmur, gallop or rub. Extremities/vascular: --Well perfused. No peripheral edema. --Radial 2+ bilaterally --Femoral 2+ bilaterally --Popliteal 1+ on LT --LT DP 2+, PT 2+ cap refill sluggish. Foot dressed. wound images reviewed. Results & Data ([facility]) Vital Signs (Past 12 Hours) Vital Signs Temp Pulse Pulse Resp BP BP Pulse Ox 03/27/22 16:05 83 16 125/83 98 03/27/22 15:50 85 16 138/85 98 03/27/22 14:42 70 16 189/92 H 98 03/27/22 07:24 98.2 F 84 18 153/68 H 97 03/27/22 06:30 98.5 F 80 18 124/72 99 O2 Del Method 03/27/22 16:05 Room Air 03/27/22 15:50 Room Air 03/27/22 14:42 Room Air 03/27/22 07:24 Room Air 03/27/22 06:30 Room Air PG Care Time/CCT Total # of Minutes Spent Total Time Spent with Patient: Total time spent is greater than 50% in coordination of care (as documented) at patient's floor/unit and/or counseling patient: Coding Level of Care Code 65374 Inpt Consult Level 4 Diagnoses Diabetic foot ulcer E11.621; L97.509
--- NOTE | 2022-03-27 16:56 | Endovascular Procedure Note ---
PG Endovascular Procedure Rpt Pre & Post Diagnosis Peripheral arterial disease I identified the patient and participated in the time-out.: Yes Procedure Operation Date: 03/27/22 14:00 Actual Procedures p Tibial Peroneal Balloon - Adonis Lin MD s Placement Art Occlusive Device - MD freedom Ware Ultrasound Vascular Access - Adonis Lin MD p Angio Extremity Unilateral - Adonis Lin MD Surgeon Harvinder Lin MD Hat Brusher Machine Sienna Estimated Blood Loss 15 Findings See Below Abdominal aorta--no significant aneurysmal or stenotic disease Right lower extremity-- -Common iliac, external iliac, internal iliac widely patent -NATIONAL OPELINT ANALYST calcified, 30-40% mid segment disease Left lower extremity-- -Common iliac, external iliac, internal iliac widely patent -NATIONAL OPELINT ANALYST, profunda widely patent -SFA mild ostial, mid, distal disease up to 30% -Popliteal widely patent -KERLINE 80 to 90% proximal stenosis, 50 to 60% distal stenosis -FAMILY PRACTICE MEDICAL DOCTOR 40 to 50% mid segment disease Peroneal widely patent to the ankle -DPA widely patent Medial/lateral plantar arteries widely patent. Deep plantar artery not visualized Anesthesia Type RN Sedation Radiation Exposure (mGv) Radiation (mGy): 187 Contrast Contrast: 100 Complications none Disposition Disposition: Asset Management Analyst Holding Description of Procedure Right NATIONAL OPELINT ANALYST obtained under ultrasound guidance, short 5Fr sheath placed Abdominal aortogram and proximal left lower extremity angiogram performed with RIM catheter. Selective angiography with quick cross catheter placed in SFA 5 Fr 45 cm destination sheath placed from right NATIONAL OPELINT ANALYST to left SFA. KERLINE disease crossed with 0.14 command wire Angioplasty of distal and proximal KRELINE with 3.0 balloon Proximal KERLINE treated with 4.0 x 60 mm Lutonix drug-eluting balloon Post procedure good angiographic result, minimal nonflow limiting dissection in proximal KERLINE. Brisk three-vessel runoff to the foot. Contrast used: 100 Moderate sedation: [id number] Access closure: Star close Summary: 1. Left lower extremity: Mild diffuse SFA disease with 3-vessel runoff to the foot 80% proximal KERLINE, 50 to 60% distal KERLINE patent DPA, plantar arteries. 2. Successful angioplasty of proximal KERLINE with 4.0 Lutonix drug-eluting balloon and distal KERLINE with standard 3.0 balloon. Recommendations: Continue DAPT with ASA/Clopidogrel for 1 months Follow-up non-invasive vascular testing in 2 weeks. I attest to the content of the Intraoperative Record and any orders documented therein. Any exceptions are noted below. Vascular Charges Angiography/Venography Procedure 1: Angiography/Venography charges: [id number] Aortography, abd + b/l iliofem LE, catheter, radiological S&I Procedure 2: Angiography/Venography charges: [id number] Initial 3rd order or selective abd, pelvic, or LE branch Lower Extremity Interventions Procedure 1: Lower Extremity Intervention charges: [id number] Angioplasty, tibial, peroneal artery, unilateral, initial vessel Additional Services Procedure 1: Additional Services Charges: 57024 Ultrasound guidance - vascular access Procedure 2: Additional Services Charges: 20290 Moderate sedation initial 15 min Procedure 3: Additional Services Charges: 68597 Moderate sedation, each additional 15 min
[2022-03-27] MEDS ORDERED: SODIUM CHLORIDE 0.9% 1000ML 1,000 ML IV SCH (17:00)
[2022-03-27] MEDS: ZOLPIDEM TARTRATE 10 MG TAB PO PRN ×2 (21:01→22:42)
[2022-03-27] MEDS: rOPINIRole HCL 2 MG TABLET PO SCH (21:03)
[2022-03-28] MEDS: HYDROmorphone INJ 1 MG/ML SYRINGE IV PRN ×8 (00:15→21:29)
[2022-03-28] MEDS: oxyCODONE HCL IR 5 MG TAB (IMMEDIATE RELEASE) PO PRN ×4 (02:41→17:32)
[2022-03-28] MEDS: ONDANSETRON INJ 2 MG/ML 2 ML VIAL IV PRN ×3 (05:31→17:32)
[2022-03-28] MEDS: ACETAMINOPHEN 500 MG TAB PO SCH ×3 (05:32→22:03)
[2022-03-28 07:44] LABS: Hematocrit (blood only) 33.1 % (34.1-44.9); Hemoglobin 10.3 g/dl (12.0-16.0); Mean Corpuscular Hemoglobin 23.3 pg (25.0-34.0); Mean Corpuscular Hgb Conc 31.1 g/dL (32.0-36.0); Mean Corpuscular Volume 74.7 fL (80.0-100.0); Mean Platelet Volume 9.9 fL (9.4-12.3); Platelet Count 395 K/uL (130-400); RDW Standard Deviation 43.6 fL (36.4-46.3); Red Blood Count 4.43 M/uL (3.93-5.22); White Blood Count 11.74 K/ul (4.8-10.8)
[2022-03-28] MEDS: INSULIN ASPART PER UNIT SC SCH ×4 (08:00→21:17)
[2022-03-28] MEDS: PREGABALIN 100 MG CAP PO SCH ×3 (08:22→21:58)
[2022-03-28] MEDS: amLODIPine BESYLATE 5 MG TAB PO SCH (08:23)
[2022-03-28] MEDS: ASPIRIN 81 MG ECTAB PO SCH (08:23)
[2022-03-28] MEDS: MAGNESIUM OXIDE 400 MG TAB PO SCH (08:23)
[2022-03-28] MEDS: METOPROLOL SUCC 50MG EXT REL TAB PO SCH (08:23)
[2022-03-28] MEDS: LINEZOLID 600 MG TAB PO SCH ×2 (08:23→21:59)
[2022-03-28] MEDS: METHYLNALTREXONE BROMIDE 12 MG/0.6 ML VIAL SQ SCH (08:24)
[2022-03-28] MEDS: HEPARIN SOD 5,000 UNIT/0.5 ML VIAL SQ SCH ×2 (08:25→22:00)
[2022-03-28] MEDS: POLYETHYLENE (MIRALAX) 17 GM PACK PO SCH ×2 (08:27→22:01)
[2022-03-28 08:29] LABS: Creatinine Clr Calc Pharmacy 127.8 ml/min; Est GFR (African American) 129.9 ml/min; Est GFR (Non-African American) 112.1 ml/min
[2022-03-28] MEDS: CLOPIDOGREL BISULFATE 75 MG TAB PO SCH (09:37)
[2022-03-28] MEDS: LANTUS PER UNIT CHARGE SQ SCH ×2 (09:56→21:35)
--- NOTE | 2022-03-28 11:42 | Vascular Medicine ProgressNote ---
Date of Service March 28, 2022 Assessment & Plan (1) Diabetic foot ulcer: Plan: 2. PAD 3.Insulin-dependent diabetes 4. Nonobstructive coronary disease 5. History of tobacco use 6. Cellulitis 7. Chronic pain Stable post angioplasty of KERLINE yesterday. Normal pedal pulses. No apparent access site complications. From a vascular standpoint okay for discharge when other medical issues stable. Continue DAPT with aspirin, clopidogrel for 1 month. Follow-up with me in 2 weeks with repeat noninvasive vascular testing. Admission and Anticipated Discharge Date Admission Date: March 19, 2022 Subjective Still with pain in left foot but manageable. Reports some soreness at right FREIGHT FLOW SALES LEADER access site. No other concerns. Telemetry reviewedno events Physical Exam Physical Exam: General: No acute distress, uncomfortable HEENT: Head is normal. Sclerae anicteric. Lungs: Clear to auscultation bilaterally without rales, rhonchi or wheezes. Cardiac: Regular rate and rhythm. S1-S2 normal. No appreciable murmur, gallop or rub. Extremities/vascular: --Well perfused. No peripheral edema. --Radial 2+ bilaterally -- Right CFAmild ecchymosis, no hematoma, pulse intact --Popliteal 2+ on LT --LT DP 2+, PT 1=+ Foot dressed. Results & Data ([facility]) Vital Signs (Past 12 Hours) Vital Signs Temp Pulse Pulse Resp BP BP Pulse Ox 03/28/22 11:25 97.9 F 83 16 161/81 H 94 03/28/22 08:39 97.9 F 85 16 149/74 H 97 03/28/22 02:37 97.5 F L 79 20 169/83 H 99 O2 Del Method 03/28/22 11:25 Room Air 03/28/22 08:39 Room Air 03/28/22 02:37 PG Care Time/CCT Total # of Minutes Spent Total Time Spent with Patient: Total time spent is greater than 50% in coordination of care (as documented) at patient's floor/unit and/or counseling patient: Coding Level of Care Code 13308 Subseq Hosp Care Lvl 3 Diagnoses Diabetic foot ulcer E11.621; L97.509
--- NOTE | 2022-03-28 13:51 | Hospitalist Progress Note ---
Date of Service March 28, 2022 Assessment & Plan (1) Cellulitis: Plan: Mariana is a 56-year-old female with recurrent infections for right foot infections, amputations, and chronic pain who presents to the emergency department with concern for sepsis and intractable nausea/vomiting. Sepsis and Osteomyelitis have been ruled out Left foot cellulitis, plantar surface diabetic foot ulcer stage III on admission unable to keep down antibiotics, MRSA positive culture initiated on Vancomycin/Rocephin. Transitioned to linezolid 03/25/2022 (had to hold nortriptyline) - Foot MRI: 1. No acute fracture or MR evidence of acute osteomyelitis.2. Nonspecific subcutaneous edema of the forefoot, most pronounced in the plantar aspect of the first digit. No abscess. 3. Small plantar ulcer of the great toe.4. Possible findings of plantar fasciitis which are partially imaged. Phantom pain/neuropathic pain will increase adjunctive pain medications to help with this discomfort arterial Doppler 03/25/22 suggest hemodynamically sig stenosis in anterior tibial and dorsalis peds, is on aspirin will have vasc consult PAD: Operation Date: 03/27/22 14:00 Actual Procedures p Tibial Peroneal Balloon - Adonis Lin MD s Placement Art Occlusive Device - Adonis Lin MD s Ultrasound Vascular Access - Adonis Lin MD p Angio Extremity Unilateral - Adonis Lin MD -> Recommend 1 month DAPT, then likely switch to Plavix. Intractable nausea/vomiting/abdominal pain diarrhea has resolved PCR panel negative. C. difficile negative. Patient with past C. difficile gene positive, toxin negative. C diff negative on admit. CT/A/P without acute abnormalities. Moderate to extensive colonic fecal retention may be overflow diarrhea - Continue MiraLAX andreas and bisacodyl, Hypertension Pressure is better controlled unless increased pain Continue amlodipine, metoprolol Patient did respond well previously to low doses of lisinopril Anxiety Continue home meds. On lorazepam 1 mg p.o. 3 times daily. May spot dose IV if unable to tolerate orals due to nausea History of opioid dependence Complex history with opioid dependence with chronic pain and history of diabetic neuropathy and amputations continue home regimen of pregabalin 75 mg p.o. 3 times daily, APAP, oxycodone for breakthrough pain, cyclobenzaprine 10 mg p.o. twice daily Patient with oral blisters/rash due to morphine. Her more phone scaled analgesia added for breakthrough while n.p.o. Patient will continue on parenteral hydromorphone with oxycodone added to try to reduce her parenteral need CT consistent with overflow diarrhea, suspect chronic opioid use as above. Should be on chronic bowel regiment on dc - Continue nortriptyline, pregabalin Peripheral artery disease Continue aspirin DVT PPx: Heparin CODE STATUS: Full (2) Diabetic foot ulcer: (3) Acute leg pain: (4) History of right below knee amputation: (5) Opioid dependence: (6) Anxiety: (7) Iron deficiency anemia: (8) Hyperglycemia due to type 2 diabetes mellitus: (9) Diabetic peripheral neuropathy: (10) Depression: (11) HTN (hypertension): (12) MRSA (methicillin resistant staph aureus) culture positive: (13) Diabetes mellitus type 2, uncontrolled: (14) Nonobstructive atherosclerosis of coronary artery: (15) History of cardiac cath: Admission and Anticipated Discharge Date Admission Date: March 19, 2022 Subjective Still with foot pain. Overall stable, though tearful today. Reports no fevers/chills, chest pain, shortness of breath, abdominal pain, nausea, or vomiting. Physical Exam Constitutional: WD/WN, vitals as above Eyes: EOM intact bilaterally; no conjunctival abnormality ENMT: external ear and nose normal, oropharynx normal Neck: trachea midline, no thyromegaly normal visual inspection Respiratory: normal respiratory effort, lungs clear to auscultation no respiratory distress Cardiovascular: RRR, no murmur, no edema Gastrointestinal (Abdomen): Inspection/Auscultation: abdomen normal to inspection; abdomen not distended Musculoskeletal: Right BKA Skin: Ulcer on left foot. Neurologic: moves all extremities and awake Psychiatric: Orientation: alert, oriented to person and cooperative Results & Data Results & Data ([facility]) Vital Signs (Past 12 Hours) Vital Signs Temp Pulse Pulse Resp BP BP Pulse Ox 03/28/22 11:25 36.6 C 83 16 161/81 H 94 03/28/22 08:39 36.6 C 85 16 149/74 H 97 03/28/22 02:37 36.4 C L 79 20 169/83 H 99 O2 Del Method 03/28/22 11:25 Room Air 03/28/22 08:39 Room Air 03/28/22 02:37 PG Care Time/CCT Total # of Minutes Spent Total Time Spent with Patient: Total time spent is greater than 50% in coordination of care (as documented) at patient's floor/unit and/or counseling patient: Coding Level of Care Code 28885 Subseq Hosp Care Lvl 2 Diagnoses Cellulitis L03.90 Diabetic foot ulcer E11.621; L97.509 Acute leg pain M79.606 History of right below knee amputation Z89.511 Opioid dependence F11.20 Anxiety F41.9 Iron deficiency anemia D50.9 Hyperglycemia due to type 2 diabetes mellitus E11.65; Z79.4 Diabetes mellitus chcf insulin use: with director telecommunications use Diabetic peripheral neuropathy E11.42 Depression F32.9 HTN (hypertension) I10 MRSA (methicillin resistant staph aureus) culture positive Z22.322 Diabetes mellitus type 2, uncontrolled E11.65 Nonobstructive atherosclerosis of coronary artery I25.10 History of cardiac cath Z98.890 (1) Hyperglycemia due to type 2 diabetes mellitus Diabetes mellitus director telecommunications insulin use: with director telecommunications use Qualified Code(s): E11.65 - Type 2 diabetes mellitus with hyperglycemia; Z79.4 - [facility] (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
[2022-03-28] MEDS: TRIAMCINOLONE ACET 0.5% CR 15 GM TUBE EXT PRN (21:30)
[2022-03-28] MEDS: ZOLPIDEM TARTRATE 10 MG TAB PO PRN (21:35)
[2022-03-28] MEDS: rOPINIRole HCL 2 MG TABLET PO SCH (21:57)
[2022-03-29] MEDS: HYDROmorphone INJ 1 MG/ML SYRINGE IV PRN ×8 (00:19→23:29)
[2022-03-29] MEDS: ONDANSETRON INJ 2 MG/ML 2 ML VIAL IV PRN ×4 (04:30→23:29)
[2022-03-29] MEDS: ACETAMINOPHEN 500 MG TAB PO SCH ×3 (05:51→20:19)
[2022-03-29] MEDS: INSULIN ASPART PER UNIT SC SCH ×4 (08:56→20:57)
[2022-03-29] MEDS: LANTUS PER UNIT CHARGE SQ SCH ×2 (08:57→20:57)
[2022-03-29] MEDS: METOPROLOL SUCC 50MG EXT REL TAB PO SCH (09:13)
[2022-03-29] MEDS: CLOPIDOGREL BISULFATE 75 MG TAB PO SCH (09:14)
[2022-03-29] MEDS: ASPIRIN 81 MG ECTAB PO SCH (09:14)
[2022-03-29] MEDS: amLODIPine BESYLATE 5 MG TAB PO SCH (09:14)
[2022-03-29] MEDS: LINEZOLID 600 MG TAB PO SCH ×2 (09:15→20:20)
[2022-03-29] MEDS: HEPARIN SOD 5,000 UNIT/0.5 ML VIAL SQ SCH ×2 (09:15→20:20)
[2022-03-29 09:20] LABS: Hematocrit (blood only) 32.8 % (34.1-44.9); Hemoglobin 10.2 g/dl (12.0-16.0); Mean Corpuscular Hemoglobin 23.1 pg (25.0-34.0); Mean Corpuscular Hgb Conc 31.1 g/dL (32.0-36.0); Mean Corpuscular Volume 74.2 fL (80.0-100.0); Mean Platelet Volume 9.8 fL (9.4-12.3); Platelet Count 390 K/uL (130-400); RDW Coefficient of Variation 16.1 % (11.5-14.5); RDW Standard Deviation 43.7 fL (36.4-46.3); Red Blood Count 4.42 M/uL (3.93-5.22); White Blood Count 11.21 K/ul (4.8-10.8)
[2022-03-29] MEDS: POLYETHYLENE (MIRALAX) 17 GM PACK PO SCH ×2 (09:20→20:21)
[2022-03-29] MEDS: PREGABALIN 100 MG CAP PO SCH ×3 (09:21→20:18)
[2022-03-29 09:50] LABS: BUN Creatinine Ratio 12.7 (10-20); Creatinine Clr Calc Pharmacy 102.2 ml/min; Est GFR (African American) 120.7 ml/min; Est GFR (Non-African American) 104.1 ml/min; Magnesium 1.7 mg/dl (1.7-2.4); Potassium 3.9 mmol/L (3.5-5.1)
[2022-03-29] MEDS: LORazepam 1 MG TAB PO PRN (09:57)
[2022-03-29] MEDS: MAGNESIUM OXIDE 400 MG TAB PO SCH (10:42)
--- NOTE | 2022-03-29 19:05 | Hospitalist Progress Note ---
Date of Service March 29, 2022 Assessment & Plan (1) Cellulitis: Plan: Mariana is a 56-year-old female with recurrent infections for right foot infections, amputations, and chronic pain who presents to the emergency department with concern for sepsis and intractable nausea/vomiting. Sepsis and Osteomyelitis have been ruled out Left foot cellulitis, plantar surface diabetic foot ulcer stage III on admission unable to keep down antibiotics, MRSA positive culture initiated on Vancomycin/Rocephin. Transitioned to linezolid 03/25/2022 (had to hold nortriptyline). - Foot looks stable to me. Trying to get [employer] team member to see her, but was not able today. - Foot MRI: 1. No acute fracture or MR evidence of acute osteomyelitis.2. Nonspecific subcutaneous edema of the forefoot, most pronounced in the plantar aspect of the first digit. No abscess. 3. Small plantar ulcer of the great toe.4. Possible findings of plantar fasciitis which are partially imaged. Phantom pain/neuropathic pain will increase adjunctive pain medications to help with this discomfort arterial Doppler 03/25/22 suggest hemodynamically sig stenosis in anterior tibial and dorsalis peds, is on aspirin will have vasc consult PAD: Operation Date: 03/27/22 14:00 Actual Procedures p Tibial Peroneal Balloon - Adonis Lin MD s Placement Art Occlusive Device - Adonis Lin MD s Ultrasound Vascular Access - Adonis Lin MD p Angio Extremity Unilateral - Adonis Lin MD -> Recommend 1 month DAPT, then likely switch to Plavix. Intractable nausea/vomiting/abdominal pain diarrhea has resolved PCR panel negative. C. difficile negative. Patient with past C. difficile gene positive, toxin negative. C diff negative on admit. CT/A/P without acute abnormalities. Moderate to extensive colonic fecal retention may be overflow diarrhea - Continue MiraLAX andreas and bisacodyl, Hypertension Pressure is better controlled unless increased pain Continue amlodipine, metoprolol Patient did respond well previously to low doses of lisinopril Anxiety Continue home meds. On lorazepam 1 mg p.o. 3 times daily. May spot dose IV if unable to tolerate orals due to nausea History of opioid dependence Complex history with opioid dependence with chronic pain and history of diabetic neuropathy and amputations continue home regimen of pregabalin 75 mg p.o. 3 times daily, APAP, oxycodone for breakthrough pain, cyclobenzaprine 10 mg p.o. twice daily Patient with oral blisters/rash due to morphine. Her more phone scaled analgesia added for breakthrough while n.p.o. Patient will continue on parenteral hydromorphone with oxycodone added to try to reduce her parenteral need CT consistent with overflow diarrhea, suspect chronic opioid use as above. Should be on chronic bowel regiment on dc - Continue nortriptyline, pregabalin Peripheral artery disease Continue aspirin DVT PPx: Heparin CODE STATUS: Full (2) Diabetic foot ulcer: (3) Acute leg pain: (4) History of right below knee amputation: (5) Opioid dependence: (6) Anxiety: (7) Iron deficiency anemia: (8) Hyperglycemia due to type 2 diabetes mellitus: (9) Diabetic peripheral neuropathy: (10) Depression: (11) HTN (hypertension): (12) MRSA (methicillin resistant staph aureus) culture positive: (13) Diabetes mellitus type 2, uncontrolled: (14) Nonobstructive atherosclerosis of coronary artery: (15) History of cardiac cath: Admission and Anticipated Discharge Date Admission Date: March 19, 2022 Subjective Myriad complaints today. Reports some draining from her ear when she chews. Reports some transient numbness/tingling that goes from hands to shoulders, but then goes to the hands and changes hands. None on my interview. Feels the pain is severe in the foot. Physical Exam Constitutional: WD/WN, vitals as above Eyes: EOM intact bilaterally; no conjunctival abnormality ENMT: external ear and nose normal, oropharynx normal Neck: trachea midline, no thyromegaly normal visual inspection Respiratory: normal respiratory effort, lungs clear to auscultation no respiratory distress Cardiovascular: RRR, no murmur, no edema Gastrointestinal (Abdomen): Inspection/Auscultation: abdomen normal to inspection; abdomen not distended Neurologic: moves all extremities and awake Psychiatric: Orientation: alert, oriented to person and cooperative Results & Data Results & Data ([facility]) Vital Signs (Past 12 Hours) Vital Signs Temp Pulse Resp BP BP Pulse Ox O2 Del Method 03/29/22 15:25 36.9 C 77 16 125/71 95 Room Air 03/29/22 11:50 37 C 78 18 130/64 96 Room Air PG Care Time/CCT Total # of Minutes Spent Total Time Spent with Patient: Total time spent is greater than 50% in coordination of care (as documented) at patient's floor/unit and/or counseling patient: Coding Level of Care Code 09955 Subseq Hosp Care Lvl 2 Diagnoses Cellulitis L03.90 Diabetic foot ulcer E11.621; L97.509 Acute leg pain M79.606 History of right below knee amputation Z89.511 Opioid dependence F11.20 Anxiety F41.9 Iron deficiency anemia D50.9 Hyperglycemia due to type 2 diabetes mellitus E11.65; Z79.4 Diabetes mellitus alf insulin use: with alf use Diabetic peripheral neuropathy E11.42 Depression F32.9 HTN (hypertension) I10 MRSA (methicillin resistant staph aureus) culture positive Z22.322 Diabetes mellitus type 2, uncontrolled E11.65 Nonobstructive atherosclerosis of coronary artery I25.10 History of cardiac cath Z98.890 (1) Hyperglycemia due to type 2 diabetes mellitus Diabetes mellitus superintendent container terminal insulin use: with alf use Qualified Code(s): E11.65 - Type 2 diabetes mellitus with hyperglycemia; Z79.4 - [facility] (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
[2022-03-29] MEDS: ZOLPIDEM TARTRATE 10 MG TAB PO PRN (20:19)
[2022-03-29] MEDS: rOPINIRole HCL 2 MG TABLET PO SCH (20:21)
[2022-03-30] MEDS: HYDROmorphone INJ 1 MG/ML SYRINGE IV PRN ×5 (03:04→21:02)
[2022-03-30] MEDS: LORazepam 1 MG TAB PO PRN ×4 (04:05→20:16)
[2022-03-30] MEDS: oxyCODONE HCL IR 5 MG TAB (IMMEDIATE RELEASE) PO PRN (05:06)
[2022-03-30] MEDS: ACETAMINOPHEN 500 MG TAB PO SCH ×2 (05:06→20:57)
[2022-03-30] MEDS: POLYETHYLENE (MIRALAX) 17 GM PACK PO SCH ×2 (07:56→20:59)
[2022-03-30] MEDS: PREGABALIN 100 MG CAP PO SCH ×3 (07:56→20:58)
[2022-03-30] MEDS: METOPROLOL SUCC 50MG EXT REL TAB PO SCH (07:56)
[2022-03-30] MEDS: CLOPIDOGREL BISULFATE 75 MG TAB PO SCH (07:57)
[2022-03-30] MEDS: MAGNESIUM OXIDE 400 MG TAB PO SCH (07:57)
[2022-03-30] MEDS: amLODIPine BESYLATE 5 MG TAB PO SCH (07:57)
[2022-03-30] MEDS: ASPIRIN 81 MG ECTAB PO SCH (07:57)
[2022-03-30] MEDS: LINEZOLID 600 MG TAB PO SCH ×2 (07:58→20:58)
[2022-03-30] MEDS: METHYLNALTREXONE BROMIDE 12 MG/0.6 ML VIAL SQ SCH (07:59)
[2022-03-30] MEDS: HEPARIN SOD 5,000 UNIT/0.5 ML VIAL SQ SCH ×2 (07:59→20:57)
[2022-03-30 08:35] LABS: Hematocrit (blood only) 37.1 % (34.1-44.9); Hemoglobin 11.4 g/dl (12.0-16.0); Mean Corpuscular Hemoglobin 23.2 pg (25.0-34.0); Mean Corpuscular Hgb Conc 30.7 g/dL (32.0-36.0); Mean Corpuscular Volume 75.6 fL (80.0-100.0); Mean Platelet Volume 10.1 fL (9.4-12.3); Platelet Count 399 K/uL (130-400); RDW Coefficient of Variation 16.3 % (11.5-14.5); RDW Standard Deviation 44.2 fL (36.4-46.3); Red Blood Count 4.91 M/uL (3.93-5.22); White Blood Count 9.44 K/ul (4.8-10.8)
[2022-03-30] MEDS ORDERED: HYDROmorphone INJ 1 MG/ML SYRINGE IV PRN (08:55)
[2022-03-30 08:58] LABS: BUN Creatinine Ratio 19.6 (10-20); Calcium 9.7 mg/dl (8.5-10.1); Creatinine Clr Calc Pharmacy 110.2 ml/min; Est GFR (African American) 123.7 ml/min; Est GFR (Non-African American) 106.7 ml/min; Magnesium 1.8 mg/dl (1.7-2.4); Potassium 3.6 mmol/L (3.5-5.1)
[2022-03-30] MEDS: INSULIN ASPART PER UNIT SC SCH ×4 (09:44→20:58)
[2022-03-30] MEDS: LANTUS PER UNIT CHARGE SQ SCH ×2 (09:45→20:59)
[2022-03-30] MEDS ORDERED: HYDROcodone/ACETAMINOPHEN 10/325 TAB PO PRN ×2 (10:38→14:55)
--- NOTE | 2022-03-30 10:48 | Hospitalist Progress Note ---
Date of Service March 30, 2022 Assessment & Plan (1) Cellulitis: Plan: Mariana is a 56-year-old female with recurrent infections for right foot infections, amputations, and chronic pain who presents to the emergency department with concern for sepsis and intractable nausea/vomiting. Sepsis and Osteomyelitis have been ruled out Left foot cellulitis, plantar surface diabetic foot ulcer stage III on admission unable to keep down antibiotics, MRSA positive culture initiated on Vancomycin/Rocephin. Transitioned to linezolid 03/25/2022 (had to hold nortriptyline). - Foot MRI: 1. No acute fracture or MR evidence of acute osteomyelitis.2. Nonspecific subcutaneous edema of the forefoot, most pronounced in the plantar aspect of the first digit. No abscess. 3. Small plantar ulcer of the great toe.4. Possible findings of plantar fasciitis which are partially imaged. Phantom pain/neuropathic pain will increase adjunctive pain medications to help with this discomfort arterial Doppler 03/25/22 suggest hemodynamically sig stenosis in anterior tibial and dorsalis peds, is on aspirin will have vasc consult Wound care consulted pending recommendations PAD: Operation Date: 03/27/22 14:00 Actual Procedures p Tibial Peroneal Balloon - Adonis Lin MD s Placement Art Occlusive Device - Adonis Lin MD s Ultrasound Vascular Access - Adonis Lin MD p Angio Extremity Unilateral - Adonis Lin MD -> Recommend 1 month DAPT, then likely switch to Plavix. Intractable nausea/vomiting/abdominal pain diarrhea has resolved PCR panel negative. C. difficile negative. Patient with past C. difficile gene positive, toxin negative. C diff negative on admit. CT/A/P without acute abnormalities. Moderate to extensive colonic fecal retention may be overflow diarrhea - Continue MiraLAX andreas and bisacodyl 03/30 patient having severe nausea due to oxycodone limiting ability to take pills/medications/antibiotics. Patient refuses to take this, reports it does not work as well as hydromorphone which helps her pain but does not make her nauseous. Discussed that this is not a long-term option, and prolonged high opioid use will cause tolerance and can worsen pain. Patient agreeable to switching Tylenol and oxycodone to [place], and will space out Dilaudid with goal of returning home on [place] as needed. Is continued on pregabalin 100 mg 3 times daily. Hypertension Pressure is better controlled unless increased pain Continue amlodipine, metoprolol Patient did respond well previously to low doses of lisinopril 03/30 patient with blood pressure in 170s improved with pain control. Will defer lisinopril additions chronic med and follow pain control at this time, if consistently greater than 180 despite pain control add lisinopril 5 mg Anxiety Continue home meds. On lorazepam 1 mg p.o. 3 times daily. May spot dose IV if unable to tolerate orals due to nausea History of opioid dependence Complex history with opioid dependence with chronic pain and history of diabetic neuropathy and amputations continue home regimen of pregabalin 75 mg p.o. 3 times daily, cyclobenzaprine 10 mg p.o. twice daily Patient with oral blisters/rash due to morphine. Her more phone scaled analgesia added for breakthrough while n.p.o. As above parenteral hydromorphone spaced out, oxycodone switched to [place] for tolerance as patient had nausea/vomiting immediately after taking oxycodone and now refuses to take this CT consistent with overflow diarrhea, suspect chronic opioid use as above. Should be on chronic bowel regiment on dc - Continue nortriptyline, pregabalin Peripheral artery disease Continue aspirin DVT PPx: Heparin CODE STATUS: Full (2) Diabetic foot ulcer: (3) Acute leg pain: (4) History of right below knee amputation: (5) Opioid dependence: (6) Anxiety: (7) Iron deficiency anemia: (8) Hyperglycemia due to type 2 diabetes mellitus: (9) Diabetic peripheral neuropathy: (10) Depression: (11) HTN (hypertension): (12) MRSA (methicillin resistant staph aureus) culture positive: (13) Diabetes mellitus type 2, uncontrolled: (14) Nonobstructive atherosclerosis of coronary artery: (15) History of cardiac cath: Admission and Anticipated Discharge Date Admission Date: March 19, 2022 Subjective Tearful on exam. Continues to have chronic pain at least a 6-10, and is frustrated that oxycodone makes her nauseous and does not work as well as hydromorphone IV. Has nausea from oxycodone this morning limiting her ability to eat or take pills, refuses to take this further due to nausea. Discussed that cannot take Dilaudid long-term, and that continued high use of any narcotic will promote tolerance and worsening pain. We will switch oxycodone and Tylenol to [place], will use this preferentially and space out Dilaudid to no more than every 4-6 hours with goal of returning home on [place] alone. Foot is dressed and without weeping, wound care has been consulted for dressing recommendations. Patient denies fever, chills, sweats. Has continued to have watery diarrhea without semisolid bowel movements. Review of Systems Review of Systems: All systems reviewed & are unremarkable except as noted in Subjective Physical Exam Physical Exam: General: A&Ox3. NAD. Cooperative. HEENT: Atraumatic, normocephalic. Patient/hearing intact Pulm: CTAB A&P. -wheezes, -rales, -rhonchi. Symmetrical chest rise. No increase in work of breathing. No respiratory distress. Cardiac: Regular, tachycardic, -mrg. Radial pulses intact and symmetrical. Abdominal: Softly distended. BS diminished. No guarding/rebound Extremity: Left foot dressed and wrapped, dressing C/D/I. PT pulses 1+ with full-thickness ulceration. Right foot with s/p BKA, well-healing, no overlying erythema or discharge PG Care Time/CCT Total # of Minutes Spent Total Time Spent with Patient: Total time spent is greater than 50% in coordination of care (as documented) at patient's floor/unit and/or counseling patient: Coding Level of Care Code 57324 Subseq Hosp Care Lvl 2 Diagnoses Cellulitis L03.90 Diabetic foot ulcer E11.621; L97.509 Acute leg pain M79.606 History of right below knee amputation Z89.511 Opioid dependence F11.20 Anxiety F41.9 Iron deficiency anemia D50.9 Hyperglycemia due to type 2 diabetes mellitus E11.65; Z79.4 Diabetes mellitus custodial insulin use: with intermodal dispatcher use Diabetic peripheral neuropathy E11.42 Depression F32.9 HTN (hypertension) I10 MRSA (methicillin resistant staph aureus) culture positive Z22.322 Diabetes mellitus type 2, uncontrolled E11.65 Nonobstructive atherosclerosis of coronary artery I25.10 History of cardiac cath Z98.890 (1) Hyperglycemia due to type 2 diabetes mellitus Diabetes mellitus custodial insulin use: with custodial use Qualified Code(s): E11.65 - Type 2 diabetes mellitus with hyperglycemia; Z79.4 - moth 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
[2022-03-30] MEDS ORDERED: hydrOXYzine HCl 25 MG TAB PO STA (16:27)
--- NOTE | 2022-03-30 17:24 | Electrocardiogram Report ---
Test Reason : Blood Pressure : / mmHG Vent. Rate : 072 BPM Atrial Rate : 072 BPM P-R Int : 160 ms QRS Dur : 090 ms QT Int : 380 ms P-R-T Axes : 048 061 069 degrees QTc Int : 416 ms Normal sinus rhythm Normal ECG When compared with ECG of 19-MAR-2022 10:07, Vent. rate has decreased BY 37 BPM Criteria for Anterior infarct are no longer Present Confirmed by Harvinder Guerra ([id number]) on 03/30/2022 5:23:50 PM Referred By: REFERRED SELF Confirmed By:Scot Guerra
--- NOTE | 2022-03-30 19:01 | Ultrasound Report ---
ULTRASOUND LEFT UPPER EXTREMITY ARTERIAL CLINICAL HISTORY: Arterial insufficiency. Cold left upper extremity. COMPARISON STUDY: No priors. TECHNIQUE: Real-time, grayscale and color Doppler sonography of the arteries of the left upper extrem ity is performed from the shoulder to the forearm. FINDINGS: The left common carotid artery is patent with normal arterial waveforms and velocities john uring up to 79 cm/s. The vertebral arteries patent with normal direction of flow. The subclavian zion alex patent with normal triphasic waveforms and velocities measuring up to 131 cm/s. The left axillar y artery is patent with velocities measuring up to 95 cm/s, and the brachial artery is patent with ve locities measuring up to 95 cm/s. The radial and ulnar arteries are patent. Mildly elevated velocitie s are seen within the distal radial artery measuring up to 187 cm/s. Velocities in the ulnar artery m easuring up to 104 cm/s. IMPRESSION: 1. The upper extremity arteries are patent as detailed above. 2. Mildly elevated velocities within the distal left radial artery may represent some degree of steno sis. Dictated: 03/30/2022 5:23 PM Transcribed: 03/30/2022 6:20 PM Arianna [id number] ARIAN_Federica Electronically signed by: Finn Bradshaw M.D. 03/30/2022 7:00 PM
[2022-03-30] MEDS: rOPINIRole HCL 2 MG TABLET PO SCH (20:58)
[2022-03-30] MEDS: MELATONIN 3 MG TAB PO PRN (20:58)
[2022-03-30] MEDS: ZOLPIDEM TARTRATE 10 MG TAB PO PRN (20:58)
[2022-03-31] MEDS: HYDROmorphone INJ 1 MG/ML SYRINGE IV PRN ×5 (01:02→18:09)
[2022-03-31] MEDS: LORazepam 1 MG TAB PO PRN ×2 (02:46→20:47)
[2022-03-31] MEDS: ACETAMINOPHEN 500 MG TAB PO SCH ×3 (04:59→20:49)
[2022-03-31] MEDS: PREGABALIN 100 MG CAP PO SCH ×3 (07:54→20:48)
[2022-03-31] MEDS: ONDANSETRON INJ 2 MG/ML 2 ML VIAL IV PRN (07:54)
[2022-03-31] MEDS: amLODIPine BESYLATE 5 MG TAB PO SCH (07:55)
[2022-03-31] MEDS: METOPROLOL SUCC 50MG EXT REL TAB PO SCH (07:55)
[2022-03-31] MEDS: CLOPIDOGREL BISULFATE 75 MG TAB PO SCH (07:55)
[2022-03-31] MEDS: MAGNESIUM OXIDE 400 MG TAB PO SCH (07:55)
[2022-03-31] MEDS: LINEZOLID 600 MG TAB PO SCH (07:55)
[2022-03-31] MEDS: HEPARIN SOD 5,000 UNIT/0.5 ML VIAL SQ SCH ×2 (07:56→20:53)
[2022-03-31] MEDS: ASPIRIN 81 MG ECTAB PO SCH (07:56)
[2022-03-31] MEDS: POLYETHYLENE (MIRALAX) 17 GM PACK PO SCH ×2 (07:59→20:58)
[2022-03-31 08:05] LABS: Basophils # (auto) 0.05 K/uL (0-0.2); Basophils % (auto) 0.5 %; Eosinophils # (auto) 0.53 K/uL (0-0.50); Eosinophils % (auto) 5.2 %; Hematocrit (blood only) 33.2 % (34.1-44.9); Immature Granulocytes # (auto) 0.02 K/uL (0.00-0.02); Immature Granulocytes % (auto) 0.2 %; Lymphocytes # (auto) 2.66 K/uL (1.2-3.4); Lymphocytes % (auto) 26.2 %; Mean Corpuscular Hgb Conc 30.1 g/dL (32.0-36.0); Mean Corpuscular Volume 76.3 fL (80.0-100.0); Mean Platelet Volume 9.8 fL (9.4-12.3); Monocytes # (auto) 0.84 K/uL (0.24-0.82); Monocytes % (auto) 8.3 %; Neutrophils # (auto) 6.06 K/uL (1.4-6.5); Neutrophils % (auto) 59.6 %; Platelet Count 361 K/uL (130-400); RDW Coefficient of Variation 16.2 % (11.5-14.5); RDW Standard Deviation 44.4 fL (36.4-46.3); Red Blood Count 4.35 M/uL (3.93-5.22); White Blood Count 10.16 K/ul (4.8-10.8)
[2022-03-31 08:28] LABS: BUN Creatinine Ratio 28.3 (10-20); C Reactive Protein 0.81 mg/dl (0-0.5); Calcium 9.3 mg/dl (8.5-10.1); Creatinine Clr Calc Pharmacy 93.7 ml/min; Est GFR (African American) 117.3 ml/min; Est GFR (Non-African American) 101.2 ml/min; Potassium 3.9 mmol/L (3.5-5.1)
[2022-03-31] MEDS: INSULIN ASPART PER UNIT SC SCH ×4 (09:18→21:37)
[2022-03-31] MEDS: LANTUS PER UNIT CHARGE SQ SCH ×2 (09:18→21:36)
[2022-03-31] MEDS: hydrALAZINE HCL 20 MG/ML VIAL IV PRN (13:19)
[2022-03-31] MEDS ORDERED: VANCOMYCIN HCL 1,250 MG in SODIUM CHLORIDE 0.9% 500 ML IV ONE (18:13)
[2022-03-31] MEDS ORDERED: VANCOMYCIN CONSULT ACTIVE PRN ×2 (18:13→20:34)
--- NOTE | 2022-03-31 18:28 | Hospitalist Progress Note ---
Date of Service March 31, 2022 Assessment & Plan (1) Cellulitis: Plan: Mariana is a 56-year-old female with recurrent infections for right foot infections, amputations, and chronic pain who presents to the emergency department with concern for sepsis and intractable nausea/vomiting. Sepsis and Osteomyelitis have been ruled out Left foot cellulitis, plantar surface diabetic foot ulcer stage III on admission unable to keep down antibiotics, MRSA positive culture initiated on Vancomycin/Rocephin. Transitioned to linezolid 03/25/2022 (had to hold nortriptyline). - Foot MRI: 1. No acute fracture or MR evidence of acute osteomyelitis.2. Nonspecific subcutaneous edema of the forefoot, most pronounced in the plantar aspect of the first digit. No abscess. 3. Small plantar ulcer of the great toe.4. Possible findings of plantar fasciitis which are partially imaged. Phantom pain/neuropathic pain will increase adjunctive pain medications to help with this discomfort arterial Doppler 03/25/22 suggest hemodynamically sig stenosis in anterior tibial and dorsalis peds, is on aspirin will have vasc consult Appreciate wound care consult PAD: Operation Date: 03/27/22 14:00 Actual Procedures p Tibial Peroneal Balloon - Adonis Lin MD s Placement Art Occlusive Device - Adonis Lin MD s Ultrasound Vascular Access - Adonis Lin MD p Angio Extremity Unilateral - Adonis Lin MD -> Recommend 1 month DAPT, then likely switch to Plavix. Will consult ID regarding antibiotic choice and duration given comexity of this patient Intractable nausea/vomiting/abdominal pain diarrhea has resolved PCR panel negative. C. difficile negative. Patient with past C. difficile gene positive, toxin negative. C diff negative on admit. CT/A/P without acute abnormalities. Moderate to extensive colonic fecal retention may be overflow diarrhea - Continue MiraLAX andreas and bisacodyl 03/30 patient having severe nausea due to oxycodone limiting ability to take pills/medications/antibiotics. Patient refuses to take this, reports it does not work as well as hydromorphone which helps her pain but does not make her nauseous. Discussed that this is not a long-term option, and prolonged high opioid use will cause tolerance and can worsen pain. Patient agreeable to switching Tylenol and oxycodone to [place], and will space out Dilaudid with goal of returning home on [place] as needed. Is continued on pregabalin 100 mg 3 times daily. Hypertension Pressure is better controlled unless increased pain Continue amlodipine, metoprolol Patient did respond well previously to low doses of lisinopril 03/30 patient with blood pressure in 170s improved with pain control. Will defer lisinopril additions chronic med and follow pain control at this time, if consistently greater than 180 despite pain control add lisinopril 5 mg Anxiety Continue home meds. On lorazepam 1 mg p.o. 3 times daily. Use hydroxyzine PRN for increased anxiety History of opioid dependence Complex history with opioid dependence with chronic pain and history of diabetic neuropathy and amputations continue home regimen of pregabalin 75 mg p.o. 3 times daily, cyclobenzaprine 10 mg p.o. twice daily Patient with oral blisters/rash due to morphine. Her more phone scaled analgesia added for breakthrough while n.p.o. Switch back to oxycodone at 5-10mg as discussed with the patient CT consistent with overflow diarrhea, suspect chronic opioid use as above. Should be on chronic bowel regiment on dc - Continue nortriptyline, pregabalin Peripheral artery disease Continue aspirin DVT PPx: Heparin CODE STATUS: Full (2) Diabetic foot ulcer: (3) Acute leg pain: (4) History of right below knee amputation: (5) Opioid dependence: (6) Anxiety: (7) Iron deficiency anemia: (8) Hyperglycemia due to type 2 diabetes mellitus: (9) Diabetic peripheral neuropathy: (10) Depression: (11) HTN (hypertension): (12) MRSA (methicillin resistant staph aureus) culture positive: (13) Diabetes mellitus type 2, uncontrolled: (14) Nonobstructive atherosclerosis of coronary artery: (15) History of cardiac cath: Admission and Anticipated Discharge Date Admission Date: March 19, 2022 Subjective Very tearful and frustrated. She is upset with the change in her oxycodone to [place] and wishes to switch back. Historically we have discharged her without weaning the dilaudid and she does fine at home without it. Reports finding the hydroxyzine useful for her anxiety but refusing it currently. Pain severity 10/10 in her foot throughout the day. Does not wish to switch to [place] as previously advised by pain management. Review of Systems Review of Systems: All systems reviewed & are unremarkable except as noted in Subjective Physical Exam Constitutional: + not well nourished and no acute distress Respiratory: normal respiratory effort, lungs clear to auscultation Cardiovascular: RRR, no murmur, no edema Results & Data Results & Data ([facility]) Vital Signs (Past 12 Hours) Vital Signs Temp Pulse Resp BP BP Pulse Ox O2 Del Method 03/31/22 15:50 36.7 C 82 16 151/73 H 97 Room Air 03/31/22 13:37 157/80 H 03/31/22 13:17 198/90 H 03/31/22 06:35 36.6 C 85 18 148/74 H 95 Room Air PG Care Time/CCT Total # of Minutes Spent Total Time Spent with Patient: Total time spent is greater than 50% in coordination of care (as documented) at patient's floor/unit and/or counseling patient: Coding Level of Care Code 65929 Subseq Hosp Care Lvl 2 Diagnoses Cellulitis L03.90 Diabetic foot ulcer E11.621; L97.509 Acute leg pain M79.606 History of right below knee amputation Z89.511 Opioid dependence F11.20 Anxiety F41.9 Iron deficiency anemia D50.9 Hyperglycemia due to type 2 diabetes mellitus E11.65; Z79.4 Diabetes mellitus snf insulin use: with jumpbasting collar baster use Diabetic peripheral neuropathy E11.42 Depression F32.9 HTN (hypertension) I10 MRSA (methicillin resistant staph aureus) culture positive Z22.322 Diabetes mellitus type 2, uncontrolled E11.65 Nonobstructive atherosclerosis of coronary artery I25.10 History of cardiac cath Z98.890 (1) Hyperglycemia due to type 2 diabetes mellitus Diabetes mellitus snf insulin use: with snf use Qualified Code(s): E11.65 - Type 2 diabetes mellitus with hyperglycemia; 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
[2022-03-31] MEDS ORDERED: VANCOMYCIN HCL 1,500 MG in SODIUM CHLORIDE 0.9% 500 ML IV ONE (18:30)
[2022-03-31] MEDS ORDERED: HYDROmorphone INJ 0.5 MG/0.5 ML SYR IV STA (20:21)
[2022-03-31] MEDS: oxyCODONE HCL IR 5 MG TAB (IMMEDIATE RELEASE) PO PRN (20:47)
[2022-03-31] MEDS: ZOLPIDEM TARTRATE 10 MG TAB PO PRN (20:47)
[2022-03-31] MEDS: hydrOXYzine HCl 25 MG TAB PO PRN (20:48)
[2022-03-31] MEDS: rOPINIRole HCL 2 MG TABLET PO SCH (20:51)
[2022-04-01] MEDS: HYDROmorphone INJ 1 MG/ML SYRINGE IV PRN ×6 (01:17→22:31)
[2022-04-01] MEDS: oxyCODONE HCL IR 5 MG TAB (IMMEDIATE RELEASE) PO PRN ×5 (03:34→20:44)
[2022-04-01] MEDS: VANCOMYCIN HCL 1,000 MG in SODIUM CHLORIDE 0.9% 250 ML IV SCH ×3 (04:10→20:02)
[2022-04-01] MEDS: ACETAMINOPHEN 500 MG TAB PO SCH ×3 (05:22→21:39)
[2022-04-01] MEDS: ONDANSETRON INJ 2 MG/ML 2 ML VIAL IV PRN (05:23)
[2022-04-01] MEDS: LORazepam 1 MG TAB PO PRN ×2 (06:35→21:39)
[2022-04-01] MEDS: hydrOXYzine HCl 25 MG TAB PO PRN ×2 (06:35→20:02)
[2022-04-01] MEDS: CLOPIDOGREL BISULFATE 75 MG TAB PO SCH (08:54)
[2022-04-01] MEDS: amLODIPine BESYLATE 5 MG TAB PO SCH (08:54)
[2022-04-01] MEDS: ASPIRIN 81 MG ECTAB PO SCH (08:54)
[2022-04-01] MEDS: MAGNESIUM OXIDE 400 MG TAB PO SCH (08:55)
[2022-04-01] MEDS: METOPROLOL SUCC 50MG EXT REL TAB PO SCH (08:55)
[2022-04-01] MEDS: HEPARIN SOD 5,000 UNIT/0.5 ML VIAL SQ SCH ×2 (08:55→21:39)
[2022-04-01] MEDS: POLYETHYLENE (MIRALAX) 17 GM PACK PO SCH ×2 (08:56→20:43)
[2022-04-01] MEDS: METHYLNALTREXONE BROMIDE 12 MG/0.6 ML VIAL SQ SCH (08:57)
[2022-04-01] MEDS: INSULIN ASPART PER UNIT SC SCH ×4 (09:04→21:41)
[2022-04-01] MEDS: LANTUS PER UNIT CHARGE SQ SCH ×2 (09:05→21:40)
[2022-04-01] MEDS: PREGABALIN 100 MG CAP PO SCH ×3 (09:05→20:44)
--- NOTE | 2022-04-01 10:17 | Pharmacy Report ---
Pharmacy PK ABX Note - Date of Service April 01, 2022 - Assessment and Plan Assessment 04/01 * patient was transitioned to linezolid on 03/25, switched back to vancomycin per ID recommendations. Reload with 1500 mg x1, Will initiate a slightly lower than previous dose as it is predicting to be within target AUC/CELSO. Vancomycin will be run at 100 ml/hr d/t previous redmans infusion reaction. 03/21 56 year old F receiving vancomcyin/ceftriaxone for treatment of sepsis/intractable vomiting. Patient was recently admitted and treated for a foot infection- cultures previously grew MRSA. Patient was transitioned to doxycycline + cephalexin for discharge, but patient non-compliant with regimen due to intractable nausea/vomiting. Leukocytosis improved (17 -> 9 K). 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 Plan Vancomycin * Begin regimen: 1000 mg IV every 8 hours * Trough level to be drawn @ 1530 on 04/02 * Predicted AUC at steady state: 529 mg/L.hr Pharmacy will continue to follow and will adjust dose/frequency as necessary. Thank you. Pharmacy has transitioned to AUC monitoring for vancomycin. AUC/CELSO is the preferred PK/PD target and is associated with decreased risk of nephrotoxicity compared to traditional trough targets.
[2022-04-01] MEDS: rOPINIRole HCL 2 MG TABLET PO SCH (21:39)
[2022-04-01] MEDS: ZOLPIDEM TARTRATE 10 MG TAB PO PRN (21:39)
[2022-04-01] MEDS: hydrALAZINE HCL 20 MG/ML VIAL IV PRN (22:57)
--- NOTE | 2022-04-01 23:36 | Hospitalist Progress Note ---
Date of Service April 01, 2022 Assessment & Plan (1) Cellulitis: Plan: Mariana is a 56-year-old female with recurrent infections for right foot infections, amputations, and chronic pain who presents to the emergency department with concern for sepsis and intractable nausea/vomiting. Sepsis and Osteomyelitis have been ruled out Left foot cellulitis, plantar surface diabetic foot ulcer stage III on admission unable to keep down antibiotics, MRSA positive culture initiated on Vancomycin/Rocephin. Transitioned to linezolid 03/25/2022 (had to hold nortriptyline). - Foot MRI: 1. No acute fracture or MR evidence of acute osteomyelitis.2. Nonspecific subcutaneous edema of the forefoot, most pronounced in the plantar aspect of the first digit. No abscess. 3. Small plantar ulcer of the great toe.4. Possible findings of plantar fasciitis which are partially imaged. Phantom pain/neuropathic pain will increase adjunctive pain medications to help with this discomfort arterial Doppler 03/25/22 suggest hemodynamically sig stenosis in anterior tibial and dorsalis peds, is on aspirin will have vasc consult Appreciate wound care consult PAD: Operation Date: 03/27/22 14:00 Actual Procedures p Tibial Peroneal Balloon - Adonis Lin MD s Placement Art Occlusive Device - Adonis Lin MD s Ultrasound Vascular Access - Adonis Lin MD p Angio Extremity Unilateral - Adonis Lin MD -> Recommend 1 month DAPT, then likely switch to Plavix. ID recommending IV vancomycin - planning to treat for 48 hours then switch to doxycycline to finish up course. Intractable nausea/vomiting/abdominal pain diarrhea has resolved PCR panel negative. C. difficile negative. Patient with past C. difficile gene positive, toxin negative. C diff negative on admit. CT/A/P without acute abnormalities. Moderate to extensive colonic fecal retention may be overflow diarrhea - Continue MiraLAX andreas and bisacodyl 03/30 patient having severe nausea due to oxycodone limiting ability to take pills/medications/antibiotics. Patient refuses to take this, reports it does not work as well as hydromorphone which helps her pain but does not make her nauseous. Discussed that this is not a long-term option, and prolonged high opioid use will cause tolerance and can worsen pain. Patient agreeable to switching Tylenol and oxycodone to [place], and will space out Dilaudid with goal of returning home on [place] as needed. Is continued on pregabalin 100 mg 3 times daily. Hypertension Pressure is better controlled unless increased pain Continue amlodipine, metoprolol Patient did respond well previously to low doses of lisinopril 03/30 patient with blood pressure in 170s improved with pain control. Will defer lisinopril additions chronic med and follow pain control at this time, if consistently greater than 180 despite pain control add lisinopril 5 mg Anxiety Continue home meds. On lorazepam 1 mg p.o. 3 times daily. Use hydroxyzine PRN for increased anxiety History of opioid dependence Complex history with opioid dependence with chronic pain and history of diabetic neuropathy and amputations continue home regimen of pregabalin 75 mg p.o. 3 times daily, cyclobenzaprine 10 mg p.o. twice daily Patient with oral blisters/rash due to morphine. Her more phone scaled analgesia added for breakthrough while n.p.o. Switch back to oxycodone at 5-10mg as discussed with the patient CT consistent with overflow diarrhea, suspect chronic opioid use as above. Should be on chronic bowel regiment on dc - Continue nortriptyline, pregabalin Peripheral artery disease Continue aspirin DVT PPx: Heparin CODE STATUS: Full (2) Diabetic foot ulcer: (3) Acute leg pain: (4) History of right below knee amputation: (5) Opioid dependence: (6) Anxiety: (7) Iron deficiency anemia: (8) Hyperglycemia due to type 2 diabetes mellitus: (9) Diabetic peripheral neuropathy: (10) Depression: (11) HTN (hypertension): (12) MRSA (methicillin resistant staph aureus) culture positive: (13) Diabetes mellitus type 2, uncontrolled: (14) Nonobstructive atherosclerosis of coronary artery: (15) History of cardiac cath: Admission and Anticipated Discharge Date Admission Date: March 19, 2022 Subjective Reportedly doing much better today. Apologizing for her behaviour yesterday. Keen to get out of hospital tomorrow. Thinks the hydroxyzine helped a lot as she is tolerant to Ativan so this is less effective. Review of Systems Review of Systems: All systems reviewed & are unremarkable except as noted in Subjective Physical Exam Constitutional: WD/WN, vitals as above Skin: Dressing not removed. C/D/I Neurologic: moves all extremities and awake; not confused Psychiatric: A+Ox3, euthymic affect Results & Data Results & Data ([facility]) Vital Signs (Past 12 Hours) Vital Signs Temp Pulse Pulse Pulse Resp BP Pulse Ox 04/01/22 23:28 150/73 H 04/01/22 23:06 172/75 H 04/01/22 22:55 83 207/84 H 04/01/22 22:16 36.9 C 83 18 203/80 H 99 04/01/22 15:50 36.9 C 80 16 168/73 H 97 O2 Del Method 04/01/22 23:28 04/01/22 23:06 04/01/22 22:55 04/01/22 22:16 Room Air 04/01/22 15:50 Room Air PG Care Time/CCT Total # of Minutes Spent Total Time Spent with Patient: Total time spent is greater than 50% in coordination of care (as documented) at patient's floor/unit and/or counseling patient: Coding Level of Care Code 44162 Subseq Hosp Care Lvl 1 Diagnoses Cellulitis L03.90 Diabetic foot ulcer E11.621; L97.509 Acute leg pain M79.606 History of right below knee amputation Z89.511 Opioid dependence F11.20 Anxiety F41.9 Iron deficiency anemia D50.9 Hyperglycemia due to type 2 diabetes mellitus E11.65; Z79.4 Diabetes mellitus control clerk head insulin use: with control clerk head use Diabetic peripheral neuropathy E11.42 Depression F32.9 HTN (hypertension) I10 MRSA (methicillin resistant staph aureus) culture positive Z22.322 Diabetes mellitus type 2, uncontrolled E11.65 Nonobstructive atherosclerosis of coronary artery I25.10 History of cardiac cath Z98.890 (1) Hyperglycemia due to type 2 diabetes mellitus Diabetes mellitus control clerk head insulin use: with fdc use Qualified Code(s): E11.65 - Type 2 diabetes mellitus with hyperglycemia; Z79.4 - detention (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
[2022-04-02] MEDS: HYDROmorphone INJ 1 MG/ML SYRINGE IV PRN ×5 (02:48→21:38)
[2022-04-02] MEDS: ACETAMINOPHEN 500 MG TAB PO SCH ×3 (05:04→21:14)
[2022-04-02] MEDS: VANCOMYCIN HCL 1,000 MG in SODIUM CHLORIDE 0.9% 250 ML IV SCH ×3 (05:04→20:56)
[2022-04-02] MEDS: oxyCODONE HCL IR 5 MG TAB (IMMEDIATE RELEASE) PO PRN ×2 (06:18→11:40)
[2022-04-02 06:50] LABS: Creatinine Clr Calc Pharmacy 122.2 ml/min; Est GFR (Non-African American) 110.4 ml/min
[2022-04-02] MEDS: hydrALAZINE HCL 20 MG/ML VIAL IV PRN (07:37)
[2022-04-02] MEDS: HEPARIN SOD 5,000 UNIT/0.5 ML VIAL SQ SCH ×2 (07:40→21:14)
[2022-04-02] MEDS: amLODIPine BESYLATE 5 MG TAB PO SCH (07:42)
[2022-04-02] MEDS: METOPROLOL SUCC 50MG EXT REL TAB PO SCH (07:42)
[2022-04-02] MEDS: CLOPIDOGREL BISULFATE 75 MG TAB PO SCH (07:42)
[2022-04-02] MEDS: MAGNESIUM OXIDE 400 MG TAB PO SCH (07:42)
[2022-04-02] MEDS: ASPIRIN 81 MG ECTAB PO SCH (07:42)
[2022-04-02] MEDS: POLYETHYLENE (MIRALAX) 17 GM PACK PO SCH ×2 (07:43→20:48)
[2022-04-02] MEDS: PREGABALIN 100 MG CAP PO SCH ×3 (07:44→21:13)
[2022-04-02] MEDS: LORazepam 1 MG TAB PO PRN ×2 (07:48→21:13)
[2022-04-02] MEDS: INSULIN ASPART PER UNIT SC SCH ×4 (09:36→20:58)
[2022-04-02] MEDS: LANTUS PER UNIT CHARGE SQ SCH ×2 (09:36→21:00)
[2022-04-02] MEDS: hydrOXYzine HCl 25 MG TAB PO PRN (11:40)
[2022-04-02] MEDS ORDERED: VANCOMYCIN LEVEL ONE (15:30)
--- NOTE | 2022-04-02 16:40 | Pharmacy Report ---
Pharmacy PK ABX Note - Date of Service April 02, 2022 - Assessment and Plan Assessment 04/01 * patient was transitioned to linezolid on 03/25, switched back to vancomycin per ID recommendations. Reload with 1500 mg x1, Will initiate a slightly lower than previous dose as it is predicting to be within target AUC/CELSO. Vancomycin will be run at 100 ml/hr d/t previous redmans infusion reaction. 03/21 56 year old F receiving vancomcyin/ceftriaxone for treatment of sepsis/intractable vomiting. Patient was recently admitted and treated for a foot infection- cultures previously grew MRSA. Patient was transitioned to doxycycline + cephalexin for discharge, but patient non-compliant with regimen due to intractable nausea/vomiting. Leukocytosis improved (17 -> 9 K). 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 Plan 04/02 * Random level was drawn at 1515, this would have been shortly after 1142 infusion ended * AUC is predicting within goal range with this random level, will continue with current for now, will order additional level for tomorrow with AM labs Vancomycin * Begin regimen: 1000 mg IV every 8 hours * Trough level to be drawn @ 1530 on 04/02 * Predicted AUC at steady state: 529 mg/L.hr Pharmacy will continue to follow and will adjust dose/frequency as necessary. Thank you. Pharmacy has transitioned to AUC monitoring for vancomycin. AUC/CELSO is the preferred PK/PD target and is associated with decreased risk of nephrotoxicity compared to traditional trough targets.
--- NOTE | 2022-04-02 19:06 | Hospitalist Progress Note ---
Date of Service April 02, 2022 Assessment & Plan (1) Cellulitis: Plan: Mariana is a 56-year-old female with recurrent infections for right foot infections, amputations, and chronic pain who presents to the emergency department with concern for sepsis and intractable nausea/vomiting. Sepsis and Osteomyelitis have been ruled out Left foot cellulitis, plantar surface diabetic foot ulcer stage III on admission unable to keep down antibiotics, MRSA positive culture initiated on Vancomycin/Rocephin. Transitioned to linezolid 03/25/2022 (had to hold nortriptyline). - Foot MRI: 1. No acute fracture or MR evidence of acute osteomyelitis.2. Nonspecific subcutaneous edema of the forefoot, most pronounced in the plantar aspect of the first digit. No abscess. 3. Small plantar ulcer of the great toe.4. Possible findings of plantar fasciitis which are partially imaged. Phantom pain/neuropathic pain will increase adjunctive pain medications to help with this discomfort arterial Doppler 03/25/22 suggest hemodynamically sig stenosis in anterior tibial and dorsalis peds, is on aspirin will have vasc consult Appreciate wound care consult PAD: Operation Date: 03/27/22 14:00 Actual Procedures p Tibial Peroneal Balloon - Adonis Lin MD s Placement Art Occlusive Device - Adonis Lin MD s Ultrasound Vascular Access - Adonis Lin MD p Angio Extremity Unilateral - Adonis Lin MD -> Recommend 1 month DAPT, then likely switch to Plavix. ID recommending IV vancomycin - planning on switching to doxycycline today and discharge but given she has fired me will leave this up to the physicians tomorrow. Intractable nausea/vomiting/abdominal pain diarrhea has resolved PCR panel negative. C. difficile negative. Patient with past C. difficile gene positive, toxin negative. C diff negative on admit. CT/A/P without acute abnormalities. Moderate to extensive colonic fecal retention may be overflow diarrhea - Continue MiraLAX andreas and bisacodyl 03/30 patient having severe nausea due to oxycodone limiting ability to take pills/medications/antibiotics. Patient refuses to take this, reports it does not work as well as hydromorphone which helps her pain but does not make her nauseous. Discussed that this is not a long-term option, and prolonged high opioid use will cause tolerance and can worsen pain. Patient agreeable to swi tching Tylenol and oxycodone to [place], and will space out Dilaudid with goal of returning home on [place] as needed. Is continued on pregabalin 100 mg 3 times daily. Hypertension Pressure is better controlled unless increased pain Continue amlodipine, metoprolol Patient did respond well previously to low doses of lisinopril 03/30 patient with blood pressure in 170s improved with pain control. Will defer lisinopril additions chronic med and follow pain control at this time, if consistently greater than 180 despite pain control add lisinopril 5 mg Anxiety Continue home meds. On lorazepam 1 mg p.o. 3 times daily. Use hydroxyzine PRN for increased anxiety History of opioid dependence Complex history with opioid dependence with chronic pain and history of diabetic neuropathy and amputations continue home regimen of pregabalin 75 mg p.o. 3 times daily, cyclobenzaprine 10 mg p.o. twice daily Patient with oral blisters/rash due to morphine. Her more phone scaled analgesia added for breakthrough while n.p.o. Switch back to oxycodone at 5-10mg as discussed with the patient CT consistent with overflow diarrhea, suspect chronic opioid use as above. Should be on chronic bowel regiment on dc - Continue nortriptyline, pregabalin Peripheral artery disease Continue aspirin DVT PPx: Heparin CODE STATUS: Full (2) Diabetic foot ulcer: (3) Acute leg pain: (4) History of right below knee amputation: (5) Opioid dependence: (6) Anxiety: (7) Iron deficiency anemia: (8) Hyperglycemia due to type 2 diabetes mellitus: (9) Diabetic peripheral neuropathy: (10) Depression: (11) HTN (hypertension): (12) MRSA (methicillin resistant staph aureus) culture positive: (13) Diabetes mellitus type 2, uncontrolled: (14) Nonobstructive atherosclerosis of coronary artery: (15) History of cardiac cath: Admission and Anticipated Discharge Date Admission Date: March 19, 2022 Subjective Patient no longer wants me as her physician. She tells me I am not listening to her. Yesterday she felt she would be ready to be discharged today. Today she reports doing much worse but won't go into details, she reports fluid coming from her face but won't let me exam her. Review of Systems Review of Systems: Other Unable to get ROS Physical Exam Physical Exam: Patient refused Constitutional: WD/WN, vitals as above Psychiatric: A+Ox3, euthymic affect Results & Data Results & Data ([facility]) Vital Signs (Past 12 Hours) Vital Signs Temp Pulse Resp BP Pulse Ox O2 Del Method 04/02/22 14:31 37 C 83 16 163/72 H 98 Room Air 04/02/22 07:09 37 C 100 H 18 187/92 H 97 Room Air PG Care Time/CCT Total # of Minutes Spent Total Time Spent with Patient: Total time spent is greater than 50% in coordination of care (as documented) at patient's floor/unit and/or counseling patient: Coding Level of Care Code 23257 Subseq Hosp Care Lvl 1 Diagnoses Cellulitis L03.90 Diabetic foot ulcer E11.621; L97.509 Acute leg pain M79.606 History of right below knee amputation Z89.511 Opioid dependence F11.20 Anxiety F41.9 Iron deficiency anemia D50.9 Hyperglycemia due to type 2 diabetes mellitus E11.65; Z79.4 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 mellitus 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
--- NOTE | 2022-04-02 21:01 | Electrocardiogram Report ---
Test Reason : Blood Pressure : / mmHG Vent. Rate : 089 BPM Atrial Rate : 089 BPM P-R Int : 158 ms QRS Dur : 084 ms QT Int : 356 ms P-R-T Axes : 053 059 068 degrees QTc Int : 433 ms Poor data quality, interpretation may be adversely affected Normal sinus rhythm Septal infarct , age undetermined Abnormal ECG When compared with ECG of 30-MAR-2022 15:01, Criteria for Septal infarct is now Present Confirmed by Andre Hinojosa ([id number]) on 04/02/2022 9:01:37 PM Referred By: REFERRED SELF Confirmed By:Andre Hinojosa
[2022-04-02] MEDS: ZOLPIDEM TARTRATE 10 MG TAB PO PRN (21:13)
[2022-04-02] MEDS: rOPINIRole HCL 2 MG TABLET PO SCH (21:14)
[2022-04-03] MEDS: HYDROmorphone INJ 1 MG/ML SYRINGE IV PRN ×4 (01:45→14:36)
[2022-04-03] MEDS: oxyCODONE HCL IR 5 MG TAB (IMMEDIATE RELEASE) PO PRN ×2 (03:47→13:05)
[2022-04-03] MEDS: VANCOMYCIN HCL 1,000 MG in SODIUM CHLORIDE 0.9% 250 ML IV SCH (03:48)
[2022-04-03] MEDS: ACETAMINOPHEN 500 MG TAB PO SCH ×2 (05:56→14:31)
[2022-04-03] MEDS: hydrOXYzine HCl 25 MG TAB PO PRN ×2 (05:56→17:42)
[2022-04-03 08:34] LABS: Hematocrit (blood only) 32.7 % (34.1-44.9); Hemoglobin 10.2 g/dl (12.0-16.0); Mean Corpuscular Hemoglobin 23.3 pg (25.0-34.0); Mean Corpuscular Hgb Conc 31.2 g/dL (32.0-36.0); Mean Corpuscular Volume 74.8 fL (80.0-100.0); Mean Platelet Volume 9.8 fL (9.4-12.3); Platelet Count 315 K/uL (130-400); RDW Coefficient of Variation 16.6 % (11.5-14.5); RDW Standard Deviation 44.6 fL (36.4-46.3); Red Blood Count 4.37 M/uL (3.93-5.22); White Blood Count 13.07 K/ul (4.8-10.8)
[2022-04-03] MEDS: LANTUS PER UNIT CHARGE SQ SCH (08:48)
[2022-04-03] MEDS: INSULIN ASPART PER UNIT SC SCH ×3 (08:48→17:42)
[2022-04-03] MEDS: PREGABALIN 100 MG CAP PO SCH ×2 (08:49→14:31)
[2022-04-03] MEDS: CLOPIDOGREL BISULFATE 75 MG TAB PO SCH (08:50)
[2022-04-03] MEDS: ASPIRIN 81 MG ECTAB PO SCH (08:50)
[2022-04-03] MEDS: METOPROLOL SUCC 50MG EXT REL TAB PO SCH (08:50)
[2022-04-03] MEDS: POLYETHYLENE (MIRALAX) 17 GM PACK PO SCH (08:50)
[2022-04-03] MEDS: MAGNESIUM OXIDE 400 MG TAB PO SCH (08:50)
[2022-04-03] MEDS: amLODIPine BESYLATE 5 MG TAB PO SCH (08:50)
[2022-04-03] MEDS: METHYLNALTREXONE BROMIDE 12 MG/0.6 ML VIAL SQ SCH (08:51)
[2022-04-03] MEDS: HEPARIN SOD 5,000 UNIT/0.5 ML VIAL SQ SCH (08:51)
[2022-04-03 08:58] LABS: Creatinine Clr Calc Pharmacy 104.1 ml/min; Est GFR (African American) 121.4 ml/min; Est GFR (Non-African American) 104.8 ml/min
--- NOTE | 2022-04-03 09:08 | Hospitalist Progress Note ---
Date of Service April 03, 2022 Assessment & Plan (1) Cellulitis: Plan: Mariana is a 56-year-old female with recurrent infections for right foot infections, amputations, and chronic pain who presents to the emergency department with concern for sepsis and intractable nausea/vomiting. Sepsis and Osteomyelitis have been ruled out Left foot cellulitis, plantar surface diabetic foot ulcer stage III on admission unable to keep down antibiotics, MRSA positive culture initiated on Vancomycin/Rocephin. Transitioned to linezolid 03/25/2022 (had to hold nortriptyline). - Foot MRI: 1. No acute fracture or MR evidence of acute osteomyelitis.2. Nonspecific subcutaneous edema of the forefoot, most pronounced in the plantar aspect of the first digit. No abscess. 3. Small plantar ulcer of the great toe.4. Possible findings of plantar fasciitis which are partially imaged. Phantom pain/neuropathic pain will increase adjunctive pain medications to help with this discomfort arterial Doppler 03/25/22 suggest hemodynamically sig stenosis in anterior tibial and dorsalis peds, is on aspirin will have vasc consult Appreciate wound care consult PAD: Operation Date: 03/27/22 14:00 Actual Procedures p Tibial Peroneal Balloon - Adonis Lin MD s Placement Art Occlusive Device - Adonis Lin MD s Ultrasound Vascular Access - Adonis Lin MD p Angio Extremity Unilateral - Adonis Lin MD -> Recommend 1 month DAPT, then likely switch to Plavix. ID recommending IV vancomycin - planning on switching to doxycycline today and discharge but given she has fired me will leave this up to the physicians tomorrow. Intractable nausea/vomiting/abdominal pain diarrhea has resolved PCR panel negative. C. difficile negative. Patient with past C. difficile gene positive, toxin negative. C diff negative on admit. CT/A/P without acute abnormalities. Moderate to extensive colonic fecal retention may be overflow diarrhea - Continue MiraLAX andreas and bisacodyl 03/30 patient having severe nausea due to oxycodone limiting ability to take pills/medications/antibiotics. Patient refuses to take this, reports it does not work as well as hydromorphone which helps her pain but does not make her nauseous. Discussed that this is not a long-term option, and prolonged high opioid use will cause tolerance and can worsen pain. Patient agreeable to swi tching Tylenol and oxycodone to [place], and will space out Dilaudid with goal of returning home on [place] as needed. Is continued on pregabalin 100 mg 3 times daily. Hypertension Pressure is better controlled unless increased pain Continue amlodipine, metoprolol Patient did respond well previously to low doses of lisinopril 03/30 patient with blood pressure in 170s improved with pain control. Will defer lisinopril additions chronic med and follow pain control at this time, if consistently greater than 180 despite pain control add lisinopril 5 mg Anxiety Continue home meds. On lorazepam 1 mg p.o. 3 times daily. Use hydroxyzine PRN for increased anxiety History of opioid dependence Complex history with opioid dependence with chronic pain and history of diabetic neuropathy and amputations continue home regimen of pregabalin 75 mg p.o. 3 times daily, cyclobenzaprine 10 mg p.o. twice daily Patient with oral blisters/rash due to morphine. Her more phone scaled analgesia added for breakthrough while n.p.o. Switch back to oxycodone at 5-10mg as discussed with the patient CT consistent with overflow diarrhea, suspect chronic opioid use as above. Should be on chronic bowel regiment on dc - Continue nortriptyline, pregabalin Peripheral artery disease Continue aspirin DVT PPx: Heparin CODE STATUS: Full (2) Diabetic foot ulcer: (3) Acute leg pain: (4) History of right below knee amputation: (5) Opioid dependence: (6) Anxiety: (7) Iron deficiency anemia: (8) Hyperglycemia due to type 2 diabetes mellitus: (9) Diabetic peripheral neuropathy: (10) Depression: (11) HTN (hypertension): (12) MRSA (methicillin resistant staph aureus) culture positive: (13) Diabetes mellitus type 2, uncontrolled: (14) Nonobstructive atherosclerosis of coronary artery: (15) History of cardiac cath: Admission and Anticipated Discharge Date Admission Date: March 19, 2022 Results & Data Results & Data ([facility]) Vital Signs (Past 12 Hours) Vital Signs Temp Pulse Resp BP Pulse Ox O2 Del Method 04/03/22 08:24 37 C 91 H 16 124/72 95 Room Air 04/02/22 21:56 37.4 C 98 H 16 164/77 H 97 Room Air PG Care Time/CCT Total # of Minutes Spent Total Time Spent with Patient: Total time spent is greater than 50% in coordination of care (as documented) at patient's floor/unit and/or counseling patient: Coding Diagnoses Cellulitis L03.90 Diabetic foot ulcer E11.621; L97.509 Acute leg pain M79.606 History of right below knee amputation Z89.511 Opioid dependence F11.20 Anxiety F41.9 Iron deficiency anemia D50.9 Hyperglycemia due to type 2 diabetes mellitus E11.65; Z79.4 Diabetes mellitus intermediate insulin use: with long chain quiller tender use Diabetic peripheral neuropathy E11.42 Depression F32.9 HTN (hypertension) I10 MRSA (methicillin resistant staph aureus) culture positive Z22.322 Diabetes mellitus type 2, uncontrolled E11.65 Nonobstructive atherosclerosis of coronary artery I25.10 History of cardiac cath Z98.890 (1) Hyperglycemia due to type 2 diabetes mellitus Diabetes mellitus intermediate insulin use: with intermediate use Qualified Code(s): E11.65 - Type 2 diabetes mellitus with hyperglycemia; Z79.4 - penitentiary (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
[2022-04-03] MEDS ORDERED: DOXYCYCLINE HYCLATE 100 MG CAP PO SCH (09:30)
[2022-04-03 12:42] LABS: Basophils % (auto) 0.8 %; Eosinophils # (auto) 1.03 K/uL (0-0.50); Immature Granulocytes # (auto) 0.03 K/uL (0.00-0.02); Immature Granulocytes % (auto) 0.2 %; Lymphocytes # (auto) 3.61 K/uL (1.2-3.4); Monocytes # (auto) 1.23 K/uL (0.24-0.82); Monocytes % (auto) 9.5 %; Neutrophils % (auto) 53.5 %
--- NOTE | 2022-04-03 14:13 | Discharge Summary ---
Date of Service April 03, 2022 Admission HPI Per Admitting Provider Mariana is a 56-year-old female with recurrent infections for right foot infections, amputations, and chronic pain who presents to the emergency department with concern for sepsis and intractable nausea/vomiting. On initial assessment she is afebrile, tachycardic, mildly hypertensive in the setting of acute pain Recent history of BKA right on 12/22 01/11 admission for sepsis with C. difficile colitis, toxin negative Recently discharged 3 days ago for a left foot infection treated with IV antibiotics, transition to Keflex/Doxy following surgical debridement Currently with nausea, vomiting, abdominal pain, watery diarrhea of 1 day. Has not been able to keep medications down including antibiotics and Percocet N/V 1 day. Emesis very dark, greenish with fecal odor. Diarrhea started 1 day ago, progressive worse. Completely liquid. Brown/dark brown Chills, sweats with vomiting. No fevers. No shortness of breath at assessment, feels a little SoB when vomiting. No chest pain, abdomen/flank pressure Denies abdominal swelling L food red, swollen. Reports erythema has spread at the top of the foot, and ulcer at the bottom has expanded towards the outside of the foot compared to discharge. Very painful. R arm, R forearm itching R stump 'doing awesome' Admitting labs: Leukocytosis to 17.75 Hemoglobin normal NLR approximately 7 Sodium 134, potassium normal Creatinine 0.47, baseline is normal BSG 262 Magnesium low at 1.6, phosphorus normal No transaminitis, alk phos chronically mildly elevated Stool PCR panel negative COVID-negative CTA/P: No acute intra-abdominal/intrapelvic abnormality. No bowel obstruction. Moderate to extensive colonic fecal retention. Nonobstructing right nephrolithiasis. Past appendectomy/cholecystectomy is noted. EKG: Sinus tach, QTC 444 Medical History: Reviewed Medications: Reviewed Surgical History: Reviewed Allergies: Reviewed Social History: Reviewed Code Status: Full Code Admission Exam Per Admitting Provider PHYSICAL EXAM: General: awake, alert, no apparent distress Head: Normocephalic, atraumatic ENT: PERRL, EOMI, no pharyngeal exudate, mucous membranes moist Neuro: AAO x 3, speech clear and appropriate, strength intact bilaterally 5/5- noting right BKA, sensation intact and equal all extremities and dermatomes, no pronator drift Chest: equal rise and fall of the chest, no accessory muscle use, no heaves or thrills, Clear to auscultation, on room air, Cardiac: Regular rate and rhythm, telemetry reviewed, skin warm dry, cap refill <3 seconds, peripheral pulses +2 no JVD, no murmur, no edema GI: NABS x 4 quadrants, soft, nontender to palpation, no rebound, guarding or tenderness : Spontaneously voiding, no pain, no CVA tenderness, Psych: Normal mood and affect Skin: erythema with pain to left foot, left metatarsal, and great toe. Pain with palpation to peroneus longus/brevis Principal Diagnosis L foot infection Discharge Exam General: WD/WN female sitting in bed, NAD HEENT; head normocephalic, atraumatic, mmm, trachea midline Resp: CTAB, no w/c/r, on room air CV: RRR, no m/r/g, no pedal edema GI: +BS, soft, nontender : no plummer MSK/Neuro: moves all extremitities, RLE amputation (stump looks good) LLE plantar surface ulcer with faint erythema/streaking (reportedly much improved), no purulent drainage, tender to palpation (less) Psych: AOx3, pleasant and cooperative Skin: scabbing lesion to RUE from prior PICC line (no evidence for infection), scabbing to LUE at site of recent IV pulses palpable b/l UE Discharge Data Allergies Allergy/AdvReac Type Severity Reaction Status Date / Time morphine Allergy Severe blisters Verified 04/06/22 21:38 in mouth Sulfa (Sulfonamide Allergy Severe rash/swelli Verified 04/06/22 21:38 Antibiotics) ng iron [From Venofer] Allergy Intermediate Hypertensio Verified 04/06/22 21:38 n vancomycin Allergy Intermediate YULIYA Verified 04/06/22 21:38 SYNDROME---CAN TAKE IF VERY SLOW DRIP. amoxicillin [From Augmentin] Allergy Mild itching/power Verified 04/06/22 21:38 h clavulanic acid Allergy Mild itching/power Verified 04/06/22 21:38 [From Augmentin] h dermabond AdvReac excoriates Uncoded 04/06/22 21:40 skin Consultations 03/19/22 13:10 ED Decision to Admit Stat 03/25/22 05:33 Consult Pain Management Routine 03/26/22 18:15 Consult Vascular Surgery Routine 03/31/22 08:28 Consult Infectious Diseases Routine 04/02/22 11:26 Consult Patient Services Routine Procedures Performed Operation Date: 03/27/22 14:00 Actual Procedures p Tibial Peroneal Balloon - Adonis Lin MD s Placement Art Occlusive Device - Adonis Lin MD s Ultrasound Vascular Access - Adonis Lin MD p Angio Extremity Unilateral - Adonis Lin MD Ordered Studies Abdomen/Pelvis CT 03/19/22 10:[address] WITH IV CONTRAST CT DOSE: 375.70 mGy.cm HISTORY: Acute nausea, vomiting and diarrhea n/v/d TECHNIQUE: Multiaxial CT images of the abdomen and pelvis were performed following the IV administration of 94 cc of Optiray, A dose lowering technique was utilized adhering to the principles of ALARA. COMPARISON STUDY: CT abdomen and pelvis 01/15/2022 FINDINGS: There is mild right basilar subsegmental atelectasis. There is no pneumatosis or pneumoperitoneum. The spleen measures within the upper limits of normal in size at 13 cm. Moderate generalized pancreatic atrophy. Unremarkable adrenal glands. Cholecystectomy is likely postsurgical biliary ductal dilation. Unremarkable liver with patency of the hepatic and portal veins. 3 mm calcification of the inferior pole right kidney. There is symmetric enhancement of the kidneys. 1.3 cm hypodensity of the superior pole right kidney suggestive of a probable cyst. No ureteral calculi or hydronephrosis. Partial distention of the urinary bladder with mild wall thickening. Unremarkable uterus. Atherosclerosis of the aorta without aneurysm. High-grade stenosis of the right external iliac artery on image 324. Mild nonspecific distal esophageal wall thickening which may represent underlying esophagitis. No bowel obstruction. There is moderate to extensive colonic fecal retention. Prior appendectomy. No ascites or mesenteric inflammation. Unremarkable soft tissues. No acute fracture. Posterior interbody anyi and screw fusion L5-S1. Grade 1 anterolisthesis L4 on L5 is likely degenerative. IMPRESSION: 1. No acute intra-abdominal or intrapelvic abnormality. 2. No bowel obstruction or bowel wall thickening. 3. Moderate to extensive colonic fecal retention. 4. Nonobstructing right nephrolithiasis. 5. Prior appendectomy and cholecystectomy. 6. Additional findings as above. ACT 112: Negative or not required by law. The above report was generated using voice recognition software. It may contain grammatical, syntax or spelling errors. Electronically signed by: Puneet Howard M.D. 03/19/2022 12:02 PM Foot MRI 03/19/22 13:49 MR foot LT w/o con HISTORY: 56 years-old Female Worsening cellulitis, streaking, DM, flexor t pain chronic left foot pain with cellulitis patient presents with open wounds foot with possible osteomyelitis COMPARISON: MRI left foot 03/08/2022 TECHNIQUE: Planar multisequence MRI of the left foot obtained without the use of IV contrast. FINDINGS: There is progressively worsened subcutaneous edema of the foot, most pronounced in the dorsal forefoot and also within the plantar tissues of the first digit and medial forefoot. Subcutaneous edema is noted adjacent to the medial cord of the plantar fascia which is partially imaged. No drainable fluid collection. 1.3 cm cutaneous ulcer of the plantar great toe. There is mild multifocal osteoarthritis. No acute fracture, dislocation, osseous erosion or significant marrow edema. The imaged flexor and extensor tendons appear unremarkable. IMPRESSION: 1. No acute fracture or MR evidence of acute osteomyelitis. 2. Nonspecific subcutaneous edema of the forefoot, most pronounced in the plantar aspect of the first digit. No abscess. 3. Small plantar ulcer of the great toe. 4. Possible findings of plantar fasciitis which are partially imaged. ACT 112: Negative or not required by law. The above report was generated using voice recognition software. It may contain grammatical, syntax or spelling errors. Electronically signed by: Puneet Howard M.D. 03/19/2022 8:12 PM Duplex Scan Lower Extremity Artery 03/25/22 08:00 US arterial duplex LE LT CLINICAL HISTORY: eval for comprimised distal blood flow TECHNIQUE: Real-time grayscale and color and spectral Doppler ultrasound imaging of the left lower extremity arteries was performed. Measurements calculated based on NASCET criteria. COMPARISON: Comparison is made to arterial ultrasound 07/14/2021 FINDINGS: LEFT: Common femoral artery: Triphasic waveforms. Peak systolic velocity (PSV) 136 cm/s. Deep femoral artery: Triphasic waveforms. PSV 140 cm/s. Superficial femoral artery: Triphasic waveforms. PSV 205 cm/s. Popliteal artery: Triphasic waveforms. PSV 85 cm/s. Anterior tibial artery: Monophasic waveforms. PSV 114 cm/s. Posterior tibial artery: Triphasic waveforms. PSV 69 cm/s. Peroneal artery: Biphasic waveforms. PSV 41 cm/s. Dorsalis pedis: Monophasic waveforms. PSV 19 cm/s. ANKLE/BRACHIAL INDEX (NATHAN): Brachial: Right: 169 mmHg. Left: 160 mmHg. Ankle (dorsalis pedis): Left: 124 mmHg. Ankle (posterior tibial): Left: 119 mmHg. Ankle/brachial index: Left: 0.73. Reference ranges: Normal Ankle/Brachial Index (NATHAN) 1.0-1.4; 0.91-0.99 borderline; < or = 0.9 abnormal (0.7-0.89 mild, 0.51-0.69 moderate, < or = 0.5 severe peripheral arterial disease). Normal Toe/Brachial Index (TBI) > or = 0.6; < 0.6 abnormal (0.34-0.59 mild, 0.12-0.34 moderate, < or = 0.11 severe peripheral arterial disease). IMPRESSION: Hemodynamically significant stenosis in the anterior tibial and dorsalis pedis vessels. Mildly decreased ankle brachial index. ACT 112: Negative or not required by law. Electronically signed by: Neil Mendieta M.D. 03/25/2022 7:37 PM Duplex Scan Upper Extremity Artery 03/30/22 14:52 ULTRASOUND LEFT UPPER EXTREMITY ARTERIAL CLINICAL HISTORY: Arterial insufficiency. Cold left upper extremity. COMPARISON STUDY: No priors. TECHNIQUE: Real-time, grayscale and color Doppler sonography of the arteries of the left upper extremity is performed from the shoulder to the forearm. FINDINGS: The left common carotid artery is patent with normal arterial waveforms and velocities measuring up to 79 cm/s. The vertebral arteries patent with normal direction of flow. The subclavian arteries patent with normal triphasic waveforms and velocities measuring up to 131 cm/s. The left axillary artery is patent with velocities measuring up to 95 cm/s, and the brachial artery is patent with velocities measuring up to 95 cm/s. The radial and ulnar arteries are patent. Mildly elevated velocities are seen within the distal radi al artery measuring up to 187 cm/s. Velocities in the ulnar artery measuring up to 104 cm/s. IMPRESSION: 1. The upper extremity arteries are patent as detailed above. 2. Mildly elevated velocities within the distal left radial artery may represent some degree of stenosis. Dictated: 03/30/2022 5:23 PM Transcribed: 03/30/2022 6:20 PM Arianna [id number] ARIAN_Wamayiworth Electronically signed by: Finn Bradshaw M.D. 03/30/2022 7:00 PM Hospital Course (1) Cellulitis: Mariana is a 56-year-old female with recurrent infections for right foot infections, amputations, and chronic pain who presents to the emergency department with concern for sepsis and intractable nausea/vomiting. Sepsis and Osteomyelitis have been ruled out Left foot cellulitis, plantar surface diabetic foot ulcer stage III on admission unable to keep down antibiotics, MRSA positive culture initiated on Vancomycin/Rocephin. Transitioned to linezolid 03/25/2022 (had to hold nortriptyline) ID recommending IV vancomycin - completed 14 days per IV and switched to doxycycline but extended 1 more day given elevated WBC but other cell lines elevated as well. Afebrile and patient reporting LLE looking and feeling much better. Procal checked and negative. ESR checked and improved to 50 (was 71 earlier this month), ESR is best has been since December CRP about the same ~1.08 Foot MRI: 1. No acute fracture or MR evidence of acute osteomyelitis.2. Nonspecific subcutaneous edema of the forefoot, most pronounced in the plantar aspect of the first digit. No abscess. 3. Small plantar ulcer of the great toe.4. Possible findings of plantar fasciitis which are partially imaged. Phantom pain/neuropathic pain will increase adjunctive pain medications to help with this discomfort arterial Doppler 03/25/22 suggest hemodynamically sig stenosis in anterior tibial and dorsalis peds, is on aspirin will have vasc consult Appreciate wound care consult, continued follow up at discharge Patient also wanting to follow up with Dr Noriega rather than Dr Montaño. Arrangements and appointment made by elementary secretary PAD: Operation Date: 03/27/22 14:00 Actual Procedures p Tibial Peroneal Balloon - Adonis Lin MD s Placement Art Occlusive Device - Adonis Lin MD s Ultrasound Vascular Access - Adonis Lin MD p Angio Extremity Unilateral - Adonis Lin MD -> Recommend 1 month DAPT, then likely switch to Plavix. Intractable nausea/vomiting/abdominal pain diarrhea has resolved PCR panel negative. C. difficile negative. Patient with past C. difficile gene positive, toxin negative. C diff negative on admit. CT/A/P without acute abnormalities. Moderate to extensive colonic fecal retention may be overflow diarrhea Continue MiraLAX andreas and bisacodyl 03/30 patient having severe nausea due to oxycodone limiting ability to take pills/medications/antibiotics. Patient refuses to take this, reports it does not work as well as hydromorphone which helps her pain but does not make her nauseous. Discussed that this is not a long-term option, and prolonged high opioid use will cause tolerance and can worsen pain. Patient agreeable to switching Tylenol and oxycodone to [place], and will space out Dilaudid with goal of returning home on [place] as needed. Is continued on pregabalin 100 mg 3 times daily. Rec'd f/u GI for consideration Movantik outpatient Wanting to follow up Jose GAstro -- appointment made by elementary secretary prior to discharge Hypertension Elevations 2nd to pain, stable Continue amlodipine, metoprolol Did have low dose lisinopril in past --> follow up outpatient and if pain controlled and remains elevated would recommend additional BP agent Anxiety Continue home meds -- on lorazepam 1 mg p.o. 3 times daily. Hydroxyzine PRN for increased anxiety -- rec'd follow up with PCP as had been effective. Consider using as needed in follow up w/ PCP outpatient History of opioid dependence Complex history with opioid dependence with chronic pain and history of diabetic neuropathy and amputations Continued home regimen of pregabalin 75 mg p.o. 3 times daily, cyclobenzaprine 10 mg p.o. twice daily Patient with oral blisters/rash due to morphine. Her more phone scaled analgesia added for breakthrough while n.p.o. Switch back to oxycodone at 5-10mg as discussed with the patient CT consistent with overflow diarrhea, suspect chronic opioid use as above. Should be on chronic bowel regiment on dc. Encouraged continued bowel regimen F/u [facility] gastro, consider movantik. Continued nortriptyline, pregabalin increased dose. rx sent Peripheral artery disease s/p tibial peroneal balloon during admission with Dr Lin Continue DAPT x 1 month F/u Dr Lin, then will need to continue Plavix daily thereafter DVT PPx: Heparin SQ while inpatient (2) Diabetic foot ulcer: (3) Acute leg pain: (4) History of right below knee amputation: (5) Opioid dependence: (6) Anxiety: (7) Iron deficiency anemia: (8) Hyperglycemia due to type 2 diabetes mellitus: (9) Diabetic peripheral neuropathy: (10) Depression: (11) HTN (hypertension): (12) MRSA (methicillin resistant staph aureus) culture positive: (13) Diabetes mellitus type 2, uncontrolled: (14) Nonobstructive atherosclerosis of coronary artery: (15) History of cardiac cath: Total Time Total Time Spent Total Time Spent (In Minutes): 70 Discharge Plan Discharge Items Patient Disposition: Home - Self-Care Reason For Visit: SOB,DIARRHEA,VOMITING,CHILLS,LOW GRADE FEVER Discharge Diagnosis: Left lower extremity cellulitis, vascular insufficiency Goals: You have been hospitalized for an urgent problem which required surgery. During your stay at [facility], we have made an effort to correct the problem that brought you to the hospital while keeping you as comfortable as possible. Surgery and medications were used to bring your condition under control and your discharge instructions will include directions for any medications you should take after leaving the hospital. Please make sure to follow the advice of your surgeon regarding follow up with the surgeon and with your primary care provider. Activity: Per Instructions section Non-emergency contact: Primary Care Provider Call non-emergency contact if: you have any medication questions Follow-up/Referrals: Adonis Lin MD [Physician] - 04/06/22 11:30 am (1 week will see Luiza Smith PA-C) Mich Gallardo DO [Outside Practitioners] - 05/22/22 10:45 am (APPT WITH NORMA KELLY PA-C. MUST SHOW FOR APPT; DUE TO 8 CANCELLATIONS. YOU ARE CURRENTLY ON A WAITING LIST, IF A PATIENT CANCELS YOU WILL BE GIVEN AN OPTION TO USE THAT TIME SLOT.) Vince Vernon DO [Primary Care Provider] - 04/06/22 3:20 pm Harish Arciniega MD [Physician] - 05/23/22 10:40 am (DR BANERJEE WILL SEE YOU AT THIS APPT. [address] [address] ) Mathew Noriega DPM, MS [Physician] - 04/10/22 9:15 am (1 week) Diet: Heart Healthy [facility] Attending Provider Instructions: You are seen in the hospital for cellulitis of your left foot, and were found to have vascular insufficiency of the left foot which was treated with a tibial peroneal balloon by vascular surgery (Dr Lin). You were converted to IV antibiotics during admission and are being sent home on oral doxycycline to continue through tomorrow, 04/04. Please take with a full glass of water. You will need follow up with Dr Lin in 1-2 weeks given the procedure. You have been prescribed dual antiplatelet therapy with aspirin clopidogrel for 1 month after your vascular intervention to your left foot. Please take aspirin 81 mg once daily, and clopidogrel 75 mg once daily for 1 month. After this you will be switched to aspirin or clopidogrel alone. An MRI of your foot did not show any evidence of fracture or osteomyelitis. You did not tolerate oxycodone during admission, and reported this caused intractable and severe nausea. You were switched to hydrocodone/acetaminophen for pain control for better tolerance/nausea. You may take hydrocodone 10 mg/acetaminophen 325 mg every 6 hours as needed for pain. Do not take additional Tylenol with this medication as it already has Tylenol in it. You should not take more than a total of 3000 mg of Tylenol in any 24-hour period or you can have side effects including liver injury. Do not continue taking oxycodone at this time, taking this in addition to hydrocodone can cause a narcotic overdose which can lead to respiratory suppression or . Please continue to take pregabalin 100 mg by mouth 3 times daily for neuropathic pain. Opioids cause the bowels to slow and can cause chronic constipation/bowel impaction. While on opioids please continue to take MiraLAX 1-2 capfuls daily, and you may use bisacodyl [id number] as needed for regular bowel movements. You may also benefit from follow up with gastroenterology given chronic opiate use and consideration for Movantik as an outpatient. You were given antibiotics while in the hospital and transitioned to IV vancomycin and ID was consulted and recommend you complete the course the doxycycline. You have had this extended to tomorrow to complete the course given improvement in the left foot given elevation in white count which could have been reactive. You should have follow-up with your primary care provider for reassessment of your wound and healing for signs of ongoing infection, and may need your course extended based on reevaluation. We have also placed referral for follow up with podiatry, Dr Noriega, as requested. Follow up with [facility] outpatient. Please continue follow up with the wound care clinic as well and in the meantime needs to be cleaned with saline and covered with aquacell Ag and changed every other day or as needed. If you develop any new or worsening symptoms including fever, chills, sweats, chest pain, chest pressure, difficulty breathing, uncontrolled nausea/vomiting, rash, wheezing, passing out or nearly passing out, bleeding, black/bloody bowel movements, or other new or concerning symptoms please call your primary care physician, or call 911 for re-evaluation in the emergency department if you are very concerned. It has been a pleasure being a part of the medical team providing for you while you have been in the hospital. Take care! Pending Studies at Discharge: No Stand-Alone Forms: [facility] [employer], Opioid Pain Management, Smoking Cessation Medications and DC Order Prescriptions: New clopidogrel 75 mg Tablet 75 mg PO QAM Qty: 30 0RF pregabalin [Lyrica] 100 mg Capsule 100 mg PO TID 30 Days Qty: 90 0RF doxycycline hyclate 100 mg Capsule 100 mg PO BID Qty: 3 0RF Continued metoprolol succinate [Toprol XL] 50 mg tablet extended release 24 hr 50 mg PO QAM ropinirole 2 mg Tablet 4 mg PO HS cyclobenzaprine 10 mg tablet 10 mg PO BID PRN (Reason: Muscle Spasm) aspirin [Melissa Low Dose Aspirin] 81 mg Tablet,Delayed Release (Dr/Ec) 81 mg PO BID Qty: 60 0RF lorazepam [Ativan] 1 mg tablet 1 mg PO TID PRN (Reason: Anxiety) metoclopramide HCl 5 mg Tablet 5 mg PO AC Qty: 90 0RF oxycodone-acetaminophen [Percocet] 5-325 mg Tablet 2 tab PO Q4H PRN (Reason: moderate to severe breakthrough pain) Qty: 30 0RF zolpidem 10 mg tablet 10 mg PO HS PRN (Reason: Sleep) Rx Instructions: do not take within 3 hours of opiod pain med insulin lispro 100 unit/mL insulin pen 5 unit SUBCUT TIDM Rx Instructions: plus sliding scale insulin glargine [Lantus Solostar U-100 Insulin] 100 unit/mL (3 mL) insulin pen 20 unit SUBCUT HS ondansetron 8 mg tablet,disintegrating 8 mg translingual TID PRN (Reason: Nausea) amlodipine [Norvasc] 5 mg Tablet 5 mg PO QAM 30 Days Qty: 30 0RF Discontinued pregabalin 75 mg capsule 75 mg PO TID doxycycline hyclate 100 mg Capsule 100 mg PO BID 7 Days Qty: 14 0RF cephalexin 500 mg Capsule 500 mg PO QID 7 Days Qty: 28 0RF Discharge Orders: Discharge Order (Routine); Ordered 04/03/22 Ordered By: Eva Luther Admission Data Admit Date/Time: 03/19/22 14:03 Attending Provider: Silvestre Carvajal Admit Provider: Sajan Allan Primary Care Provider: Vince Vernon Other Providers: Sajan Allan ; Dallas Polk ; Adonis Lin ; Sylvain Melendrez ; Esthela Curtis ; Harish Arciniega I. ; Cristhian Oconnor II ; Minda Vargas ; Dami Willard ; David Banerjee Other Interventions: Discharge Summary Assessment (RN) Last Done: 04/03/22 19:23 Supervising Physician Co-Signing Physician Notes Attending Attestation & Discharge Note - Pt seen/examined, chart reviewed, care plan d/w CHAVEZ Luther. I agree w/ the tanner components of her documentation. 56yo female with poorly controlled DM, PAD, ongoing left foot infection, right BKA 12/2021. 01/11/22 admission for sepsis with C. difficile colitis, toxin negative. Additional hospital admission for L foot infection - just discharged on 03/16/22 with PO abx after having underwent surgical debridement of her L foot. Returned with N/V/abd pain/diarrhea and ongoing L foot pain with redness. During this admission found to have opiate-induced constipation. Treated accordingly. Left foot infection/ulcer - did not require surgical debridement this admission. Seen by Christine BOYCE - ongoing PO abx advised (doxy 100 BID). Local wound care in conjunction with wound care nurse provided. 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 Acute/chronic pain - patient is on chronic opiates at home. Acute pain 2nd to left foot pain. Just prior to d/c home she complained of fluid leaking from the left side of her face. I went to bedside, observed the left face for 15 minutes. No leaking of fluid observed from any sinus tract, the left ear, etc. Left TM clear, normal landmarks, no perforation. No otitis externa on left. Left parotid gland wnl. Left face wnl. Patient counseled that if she notes any drainage of liquid from her face she would need to see ENT and/or oral surgeon. additional exam - gen - NAD, anxious mouth - MMM, no lesions; very poor dentition heart - RRR, s1 s2 lungs - CTA b/l abd - soft NT ND BS+ ext - right bKA; left foot wrapped in dressings; DP and pos tib pulses L foot 2+ Patient to be referred to GI in [place] at her request for opiate induced constipation & consideration for Movantik or similar. She also does not wish to f/u with [facility] for her left foot issues - wishes to change care to Dr Noriega, podiatry. At high risk of readmission due to chronic pain issues, recurrent infection, etc Silvestre Carvajal MD Coding Level of Care Code D/C DAY MANAGEMENT >30 MINS Diagnoses Cellulitis L03.90 Diabetic foot ulcer E11.621; L97.509 Acute leg pain M79.606 History of right below knee amputation Z89.511 Opioid dependence F11.20 Anxiety F41.9 Iron deficiency anemia D50.9 Hyperglycemia due to type 2 diabetes mellitus E11.65; Z79.4 Diabetes mellitus fdc insulin use: with fdc use Diabetic peripheral neuropathy E11.42 Depression F32.9 HTN (hypertension) I10 MRSA (methicillin resistant staph aureus) culture positive Z22.322 Diabetes mellitus type 2, uncontrolled E11.65 Nonobstructive atherosclerosis of coronary artery I25.10 History of cardiac cath Z98.890
[2022-04-03] MEDS: ONDANSETRON INJ 2 MG/ML 2 ML VIAL IV PRN (14:32)
[2022-04-03] MEDS: hydrALAZINE HCL 20 MG/ML VIAL IV PRN (17:42)
== END 2022-04-03 19:40 | disposition home or self-care (01) | DRG 982 ==
LOC: ED 09:52 → SUATTDRO 14:03 → INTOOBSV 14:03 → 3W 14:03 → 2E 03-27 16:35 → 3W 03-28 18:22
PROC: CLB.AEU (2022-03-27 14:00)
DX: F11.20 Opioid dependence, uncomplicated; B95.62 Methicillin resistant Staphylococcus aureus infection as the cause of diseases classified elsewhere; L97.529 Non-pressure chronic ulcer of other part of left foot with unspecified severity; I25.10 Atherosclerotic heart disease of native coronary artery without angina pectoris; E11.69 Type 2 diabetes mellitus with other specified complication; L03.116 Cellulitis of left lower limb; G89.29 Other chronic pain; I10 Essential (primary) hypertension; Z89.511 Acquired absence of right leg below knee; Z88.1 Allergy status to other antibiotic agents; D50.9 Iron deficiency anemia, unspecified; Z88.5 Allergy status to narcotic agent; Z79.899 Other long term (current) drug therapy; E11.65 Type 2 diabetes mellitus with hyperglycemia; G54.6 Phantom limb syndrome with pain; K59.09 Other constipation; E11.51 Type 2 diabetes mellitus with diabetic peripheral angiopathy without gangrene; F41.9 Anxiety disorder, unspecified; Z79.4 Long term (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; Z88.2 Allergy status to sulfonamides; F17.210 Nicotine dependence, cigarettes, uncomplicated; E11.621 Type 2 diabetes mellitus with foot ulcer; R19.7 Diarrhea, unspecified; E11.43 Type 2 diabetes mellitus with diabetic autonomic (poly)neuropathy

== ENCOUNTER 2022-04-06 17:49 | Inpatient (IN) ==
--- NOTE | 2022-04-06 18:27 | ED Triage Note ---
Date of Service April 06, 2022 History of Present Illness This patient was briefly evaluated while in triage. An abbreviated physical exam was performed. This patient is a 56-year-old Female with past medical history of recent MRSA infection in her left foot for which she was admitted to the hospital for from 03/19-04/03/22 presents to the ED as referred by her PCP for evaluation of worsening infection despite continuing on oral antibiotics. She notes severe pain that has not been controlled after taking Percocet. She has felt chilled but no fevers. Also note nausea but no vomiting. Denies chest pain, respiratory difficulties, diarrhea or urinary symptoms. PHYSICAL EXAM: VITALS: Vitals are noted on the nurse's note and reviewed by myself. Mildly tachycardic, additional vital signs stable. General: Resting in wheelchair, no acute distress HEENT: Normocephalic, PERRL, EOMI, mucous membranes moist, oropharynx clear Resp: Good inspiratory effort on room air, lung sounds clear bilaterally CV: Regular rate and rhythm, normal S1-S2 Abd: Soft, non-tender to palpation MSK: Right BKA. Left foot with dressings in place, not removed Neuro: Awake, alert and oriented x 3, interacting and answering questions appropriately Physical Exam Initial orders for labs and / or imaging were placed and patient was placed in the waiting area until a bed is available. Please see further documentation for the full ED course.
[2022-04-06 18:46] LABS: Basophils # (auto) 0.14 K/uL (0-0.2); Basophils % (auto) 0.8 %; Eosinophils # (auto) 0.85 K/uL (0-0.50); Eosinophils % (auto) 4.8 %; Hematocrit (blood only) 35.4 % (34.1-44.9); Immature Granulocytes # (auto) 0.14 K/uL (0.00-0.02); Immature Granulocytes % (auto) 0.8 %; Lymphocytes % (auto) 19.9 %; Mean Corpuscular Hemoglobin 23.6 pg (25.0-34.0); Mean Corpuscular Hgb Conc 31.1 g/dL (32.0-36.0); Monocytes # (auto) 1.23 K/uL (0.24-0.82); Neutrophils # (auto) 11.74 K/uL (1.4-6.5); Neutrophils % (auto) 66.7 %; Platelet Count 279 K/uL (130-400); RDW Coefficient of Variation 17.5 % (11.5-14.5); RDW Standard Deviation 45.6 fL (36.4-46.3); Red Blood Count 4.66 M/uL (3.93-5.22)
[2022-04-06 19:09] LABS: Alanine Aminotransferase 13 U/L (7-52); Albumin Globulin Ratio 1.4 (0.9-2); Albumin Level 4.4 gm/dl (3.4-5.0); Alkaline Phosphatase 95 U/L (34-104); Anion Gap 9 (3-11); Aspartate Aminotransferase 10 U/L (13-39); BUN Creatinine Ratio 18.3 (10-20); Bilirubin,Total 0.4 mg/dl (0.2-1.0); Blood Urea Nitrogen 11 mg/dl (6-23); Calcium 9.8 mg/dl (8.5-10.1); Carbon Dioxide 26 mmol/L (21-32); Chloride 101 mmol/L (98-107); Est GFR (African American) 117.3 ml/min; Est GFR (Non-African American) 101.2 ml/min; Globulin 3.1 gm/dl (2.5-4.0); Glucose 259 mg/dl (70-99(Fasting)); Potassium 3.8 mmol/L (3.5-5.1); Sodium 136 mmol/L (136-145); Total Protein 7.5 gm/dl (6.0-8.3)
--- NOTE | 2022-04-06 19:19 | XRay Report ---
LEFT FOOT 3 VIEWS CLINICAL HISTORY: Left foot infection. FINDINGS: 3 views of the left foot are compared to study dated 03/08/2022 and correlated with MRI of t he left foot dated 03/19/2022. The skeletal structures are osteopenic. No fracture is seen. There is no bony erosion or periostitis. Minimal degenerative spurring is seen along the dorsal aspect of the ta rsal bones. There is minimal degenerative change at the first metatarsophalangeal joint. The overlyin g soft tissues are normal as imaged. IMPRESSION: No acute bony abnormality is identified. Electronically signed by: Finn Bradshaw M.D. 04/06/2022 7:16 PM
[2022-04-06] MEDS ORDERED: HYDROmorphone INJ 1 MG/ML SYRINGE IV STA ×2 (20:39→23:25)
[2022-04-06] MEDS ORDERED: VANCOMYCIN HCL 1,500 MG in SODIUM CHLORIDE 0.9% 250 ML IV STA (20:50)
[2022-04-06] MEDS ORDERED: VANCOMYCIN CONSULT ACTIVE PRN (20:50)
--- NOTE | 2022-04-06 21:51 | History & Physical Report ---
Date of Service April 06, 2022 Assessment & Plan (1) Cellulitis of left foot: Plan: Nontoxic. Palpable pulses. -Follow cultures -Vancomycin, patient with h/o MRSA infection -Wound care -Tylenol, Percocet, DIlaudid PRN -Flexeril PRN (2) Opioid dependence: Plan: Cautious use of opioids. Goal to control patient's pain with low doses of opioids (3) Anxiety: Plan: Chronic -Ativan TID PRN (4) HTN (hypertension): Plan: Chronic. Elevated with pain, anxiety and agitation -Continue Amlodipine -Continue Metoprolol (5) Diabetes mellitus type 2, uncontrolled: Plan: Chronic -Lantus 15u BID with ISS -Goal blood sugar 100 - 140 -Continue Reglan -Continue Lyrica (6) PAD (peripheral artery disease): Plan: Chronic -Continue ASA - will change to daily -Continue Plavix History of Present Illness Chief Complaint: LLE pain, redness, swelling Primary Care Provider: Vince Young Vernon, DO Guilloryra Inch is a 56yo female presenting with redness, swelling and pain of the LLE. Patient is well known to the medical service. She was admitted to [facility] 03/08/22 - 03/16/22 with LLE cellulitis which was treated with Vancomycin and Zosyn. She returned to [facility] on 03/19/22 and was admitted with cellulitis of the LLE as well as intractable nausea/vomiting/diarrhea and abdominal pain. She was treated with Vancomycin and Ceftriaxone for MRSA cellulitis. She had tibial peroneal balloon performed by Dr. Lin on 03/27/22. Patient was discharged on Doxycycline to complete course - last day 04/04/22. Also discharged on DAPT with ASA and Plavix. Patient reports compliance with her medications. Woke this AM and didn't feel right. She had worsening throbbing pain in her left foot as well as redness and swelling. +Chills, +Nausea. Seen by PCP today for followup appointment - some concern that her blood pressure was low (possibly 98?)/ Sent to the ER for further evaluation of her foot. In the ER patient is afebrile, hypertensive, tachycardic Requesting pain medication and anti-emetics Allergies Allergy/AdvReac Type Severity Reaction Status Date / Time morphine Allergy Severe blisters Verified 04/06/22 21:38 in mouth Sulfa (Sulfonamide Allergy Severe rash/swelli Verified 04/06/22 21:38 Antibiotics) ng iron [From Venofer] Allergy Intermediate Hypertensio Verified 04/06/22 21:38 n vancomycin Allergy Intermediate YULIYA Verified 04/06/22 21:38 SYNDROME---CAN TAKE IF VERY SLOW DRIP. amoxicillin [From Augmentin] Allergy Mild itching/power Verified 04/06/22 21:38 h clavulanic acid Allergy Mild itching/power Verified 04/06/22 21:38 [From Augmentin] h dermabond AdvReac excoriates Uncoded 04/06/22 21:40 skin Home Medications Medication Instructions Recorded Confirmed Type ropinirole 2 mg tablet 4 mg PO HS 10/19/20 04/06/22 History metoprolol succinate 50 mg 50 mg PO QAM 03/05/21 04/06/22 History tablet,extended release 24 hr (Toprol XL) aspirin 81 mg tablet,delayed 81 mg PO BID #60 tabs 10/04/21 04/07/22 Rx release (Melissa Low Dose Aspirin) lorazepam 1 mg tablet (Ativan) 1 mg PO TID PRN Anxiety 11/04/21 04/06/22 History cyclobenzaprine 10 mg tablet 10 mg PO BID PRN Muscle Spasm 11/24/21 04/06/22 History metoclopramide HCl 5 mg tablet 5 mg PO AC #90 tabs 12/26/21 04/06/22 Rx oxycodone-acetaminophen 5 mg-325 2 tab PO Q4H PRN moderate to 12/26/21 04/06/22 Rx mg tablet (Percocet) severe breakthrough pain #30 tabs insulin glargine 100 unit/mL (3 20 unit subcut HS 03/08/22 04/06/22 History mL) subcutaneous pen (Lantus Solostar U-100 Insulin) insulin lispro 100 unit/mL 5 unit subcut TIDM 03/08/22 04/06/22 History subcutaneous pen ondansetron 8 mg disintegrating 8 mg translingual TID PRN Nausea 03/08/22 04/06/22 History tablet zolpidem 10 mg tablet 10 mg PO HS PRN Sleep 03/08/22 04/06/22 History amlodipine 5 mg tablet (Norvasc) 5 mg PO QAM 30 days #30 tabs 03/16/22 04/06/22 Rx clopidogrel 75 mg tablet 75 mg PO QAM #30 tabs 03/30/22 04/06/22 Rx pregabalin 100 mg capsule (Lyrica) 100 mg PO TID 30 days #90 caps 03/30/22 04/06/22 Rx doxycycline hyclate 100 mg capsule 100 mg PO BID #3 caps 04/03/22 04/06/22 Rx Past Med/Surg History Medical History Acidosis, lactic Acute dehydration 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 No issues per anesthesia postop progress note. Anemia Cellulitis Chronic back pain Depression Diabetic peripheral neuropathy DM2 (diabetes mellitus, type 2) IDDM, A1c 07/2021-11% Gastritis Gastroenteritis GIB (gastrointestinal bleeding) History of amputation of great toe Hyperlipidemia Insulin dependent diabetes mellitus Iron deficiency anemia Nonobstructive atherosclerosis of coronary artery Numbness of lower extremity Peripheral neuropathy Right second toe ulcer Seizures Sepsis Surgical History History of cardiac cath done at [facility]; 09/22/19; LM - mild luminal irregularities. LAD - mid 20-30%, distal with myocardial bridge & 30% stenosis. L Cx - mild luminal irregularities. RCA - proximal <30% stenosis; mid/distal vessel mild plaques. PDA - mild luminal irregularities. History of esophagogastroduodenoscopy (EGD) History of right below knee amputation (12/22/21) Right Below Knee Amputation(Right) - Davon Good MD, FACS Family History Mother , age 63 Myocardial infarction Father , age 68 or 69 Myocardial infarction Brother S/P CABG (coronary artery bypass graft) Sister Myocardial infarction x 3; she is 57yo Social History Smoking Status: Former smoker Tobacco Type: Cigarettes packs per day: 0.5; Years Smoked: 20; Cigarettes Per Day: 20; Second Hand Exposure: No; Hx Alcohol Use: No Hx Substance Use: No Preferred Language: Greek Communication Ability: Effective Visual Impairment: No Limitations Hearing Ability: Normal Repairer Required: No Beliefs That Will Affect Care: None marital status: Current Living Situation: Spouse current occupational status: unemployed 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 other: raising a grandchild as well; lives in [place] Feels Safe at Home: Yes during the past year weight has: remained stable Assistive Devices: Walker and Wheelchair Review of Systems Review of Systems: All systems reviewed & are unremarkable except as noted in HPI & below Physical Exam Physical Exam: General: patient chronically ill in appearance, non-toxic, NAD Skin: warm, dry, left foot with mild warmth and redness present on dorsum of foot, shallow based ulcer present on right great toe and plantar surface of f oot, granulation tissue with some eschar, some purulence, no crepitus, no bullae HEENT: NC/AT, PERRL, EOMI, anicteric sclera, conjunctiva without injection, external ear normal to inspection and nontender, nares patent, moist mucus membranes, dentition intact, no oropharyngeal lesions, neck supple, trachea midline, no LAD, no thyromegaly, no JVD Heart: +S1/S2, regular, no m/r/g Lungs: equal air entry bilaterally, no rales/rhonchi/wheezes Abd: +BS, soft, NT/ND, no masses/organomegaly/ascites Ext: s/p right BKA, stump well healed, nontender, LLE as above Neuro: nonfocal, patient AA&O x 4, speech intact, no facial droop, moving all extremities on command with equal strength 5/5 Results & Data Results & Data ([facility]) Vital Signs (Past 12 Hours) Vital Signs Temp Pulse Resp BP Pulse Ox O2 Del Method 04/06/22 18:20 36.1 C L 105 H 18 118/72 97 Room Air Laboratory Results Laboratory Results WBC 17.60 K/ul (4.8-10.8) H 04/06/22 18:36 RBC 4.66 M/uL (3.93-5.22) 04/06/22 18:36 Hgb 11.0 g/dl (12.0-16.0) L 04/06/22 18:36 Hct 35.4 % (34.1-44.9) 04/06/22 18:36 MCV 76.0 fL (80.0-100.0) L 04/06/22 18:36 MCH 23.6 pg (25.0-34.0) L 04/06/22 18:36 MCHC 31.1 g/dL (32.0-36.0) L 04/06/22 18:36 RDW Std Deviation 45.6 fL (36.4-46.3) 04/06/22 18:36 RDW Coeff of Maria Del Carmen 17.5 % (11.5-14.5) H 04/06/22 18:36 Plt Count 279 K/uL (130-400) 04/06/22 18:36 MPV 10.0 fL (9.4-12.3) 04/06/22 18:36 Immature Gran % (Auto) 0.8 % 04/06/22 18:36 Neut % (Auto) 66.7 % 04/06/22 18:36 Lymph % (Auto) 19.9 % 04/06/22 18:36 Trigg % (Auto) 7.0 % 04/06/22 18:36 Eos % (Auto) 4.8 % 04/06/22 18:36 Baso % (Auto) 0.8 % 04/06/22 18:36 Neut # (Auto) 11.74 K/uL (1.4-6.5) H 04/06/22 18:36 Lymph # (Auto) 3.50 K/uL (1.2-3.4) H 04/06/22 18:36 Trigg # (Auto) 1.23 K/uL (0.24-0.82) H 04/06/22 18:36 Eos # (Auto) 0.85 K/uL (0-0.50) H 04/06/22 18:36 Baso # (Auto) 0.14 K/uL (0-0.2) 04/06/22 18:36 Immature Gran # (Auto) 0.14 K/uL (0.00-0.02) H 04/06/22 18:36 ESR 62 mm/hr (0-30) H 04/06/22 18:36 Sodium 136 mmol/L (136-145) 04/06/22 18:36 Potassium 3.8 mmol/L (3.5-5.1) 04/06/22 18:36 Chloride 101 mmol/L (98-107) 04/06/22 18:36 Carbon Dioxide 26 mmol/L (21-32) 04/06/22 18:36 Anion Gap 9 (3-11) 04/06/22 18:36 BUN 11 mg/dl (6-23) 04/06/22 18:36 Creatinine 0.60 mg/dl (0.6-1.2) 04/06/22 18:36 Est Cr Clr Drug Dosing Not Reportable 04/06/22 18:36 Est GFR ( Amer) 117.3 ml/min 04/06/22 18:36 Est GFR (Non-Af Amer) 101.2 ml/min 04/06/22 18:36 BUN/Creatinine Ratio 18.3 (10-20) 04/06/22 18:36 Glucose 259 mg/dl (70-99(Fasting)) H 04/06/22 18:36 POC Glucose 212 mg/dl (70-99) H 04/07/22 01:04 Lactate 1.7 mmol/L (0.4-2.0) 04/06/22 18:36 Calcium 9.8 mg/dl (8.5-10.1) 04/06/22 18:36 Phosphorus 3.9 mg/dl (2.5-4.9) 04/06/22 20:45 Magnesium 1.8 mg/dl (1.7-2.4) 04/06/22 20:45 Total Bilirubin 0.4 mg/dl (0.2-1.0) 04/06/22 18:36 AST 10 U/L (13-39) L 04/06/22 18:36 ALT 13 U/L (7-52) 04/06/22 18:36 Alkaline Phosphatase 95 U/L (34-104) 04/06/22 18:36 C-Reactive Protein 2.00 mg/dl (0-0.5) H 04/06/22 18:36 Total Protein 7.5 gm/dl (6.0-8.3) 04/06/22 18:36 Albumin 4.4 gm/dl (3.4-5.0) 04/06/22 18:36 Globulin 3.1 gm/dl (2.5-4.0) 04/06/22 18:36 Albumin/Globulin Ratio 1.4 (0.9-2) 04/06/22 18:36 Procalcitonin < 0.05 ng/ml (0-0.5) 04/06/22 18:36 SARS-CoV-2, RNA, NAAT NEGATIVE (NEGATIVE) 04/06/22 21:18 Impressions Foot X-Ray 04/06/22 18:27 LEFT FOOT 3 VIEWS CLINICAL HISTORY: Left foot infection. FINDINGS: 3 views of the left foot are compared to study dated 03/08/2022 and correlated with MRI of the left foot dated 03/19/2022. The skeletal structures are osteopenic. No fracture is seen. There is no bony erosion or periostitis. Minimal degenerative spurring is seen along the dorsal aspect of the tarsal bones. There is minimal degenerative change at the first metatarsophalangeal joint. The overlying soft tissues are normal as imaged. IMPRESSION: No acute bony abnormality is identified. Electronically signed by: Finn Bradshaw M.D. 04/06/2022 7:16 PM PG Care Time/CCT Total # of Minutes Spent Total Time Spent with Patient: Total time spent is greater than 50% in coordination of care (as documented) at patient's floor/unit and/or counseling patient: Coding Level of Care Code 31757 Initial Inpt Care Lvl 3 Diagnoses Cellulitis of left foot L03.116 Opioid dependence F11.20 Anxiety F41.9 HTN (hypertension) I10 Diabetes mellitus type 2, uncontrolled E11.65 PAD (peripheral artery disease) I73.9
[2022-04-06] MEDS ORDERED: LANTUS PER UNIT CHARGE SQ STA (22:29)
--- NOTE | 2022-04-06 23:13 | Emergency Department Note ---
Impression & Plan Cellulitis of left foot, History of right below knee amputation, Diabetic foot ulcer ED Provider Note Provider: John Saez MD DATE OF SERVICE: 04/06/2022 CHIEF COMPLAINT: Worsening foot infection HISTORY OF PRESENT ILLNESS: Patient is a 56-year-old female history of diabetes and recurrent infections with a right lower leg amputation now with infection of the left leg recently admitted. Referred from PCPs office due to worsening pain and likely infection of left foot. Some increased pain and discharge and redness of the left great toe to midfoot by her report. Fevers a day or 2 ago but not today. Reports significant pain refractory to Percocet at home. Taking doxycycline at home but she states he does not feel this is working well. No trauma reported. REVIEW OF SYSTEMS: A total of 10 review of systems was obtained and negative except as stated above in the HPI. PAST MEDICAL HISTORY: As noted above MEDICATIONS: Reviewed home medication list SOCIAL HISTORY: Smoker PHYSICAL EXAM: GENERAL: alert and oriented in no acute distress on stretcher Head: normocephalic and atraumatic EYES: No injection, discharge or icterus. NECK: Trachea midline. ENT: Mucous membranes pink and moist. LUNGS: Airway patent. No retractions or tachypnea HEART: Regular rate and rhythm. No chest wall tenderness ABDOMEN: Soft and non-tender, without guarding or rebound. SKIN: Acyanotic, warm, dry, without rashes EXTREMITIES: With well-healed right BKA. Left foot has significant erythema and some areas of ulceration and erythema with some moist open wound of the left great toe to the bottom of the left MCP area. No crepitus. Some pain across the midfoot but no crepitus here either. No streaking up the left leg. NEUROLOGICAL: No focal deficits. No facial droop or slurred speech noted. No aphasia. Patient's laboratory studies and imaging reviewed. Differential includes Foreign body, fracture, dislocation, joint compromise, infection, soft tissue injury, tendon injury, vascular compromise, compartment syndrome, as well as other pathologies. IMPRESSION/MEDICAL DECISION MAKING: Recent admission on outpatient doxycycline now with worsening of the wound. Patient's inflammatory markers and white blood cell counts are elevating. Blood cultures and x-ray obtained. No evidence of osteomyelitis on the x-ray. No trauma history. Does not appear septic. Expanded back to vancomycin based on prior wound culture with MRSA. Given some Dilaudid for pain. Given her worsening while on outpatient antibiotics and her significant history with diabetes feel that further care with inpatient antibiotics is indicated. Hospitalist contacted. Surface wound culture from left foot obtained. DIAGNOSIS: Left foot diabetic infection DISPOSITION: Hospitalist will evaluate Patient was agreeable with this plan. Past Med/Surg History Medical History Acidosis, lactic Acute dehydration 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 No issues per anesthesia postop progress note. Anemia Cellulitis Chronic back pain Depression Diabetic peripheral neuropathy DM2 (diabetes mellitus, type 2) IDDM, A1c 07/2021-11% Gastritis Gastroenteritis GIB (gastrointestinal bleeding) History of amputation of great toe Hyperlipidemia Insulin dependent diabetes mellitus Iron deficiency anemia Nonobstructive atherosclerosis of coronary artery Numbness of lower extremity Peripheral neuropathy Right second toe ulcer Seizures Sepsis Surgical History History of cardiac cath done at [facility]; 09/22/19; LM - mild luminal irregularities. LAD - mid 20-30%, distal with myocardial bridge & 30% stenosis. L Cx - mild luminal irregularities. RCA - proximal <30% stenosis; mid/distal vessel mild plaques. PDA - mild luminal irregularities. History of esophagogastroduodenoscopy (EGD) History of right below knee amputation (12/22/21) Right Below Knee Amputation(Right) - Davon Good MD, FACS Family History Mother , age 63 Myocardial infarction Father , age 68 or 69 Myocardial infarction Brother S/P CABG (coronary artery bypass graft) Sister Myocardial infarction x 3; she is 57yo Social History Smoking Status: Former smoker Tobacco Type: Cigarettes packs per day: 0.5; Years Smoked: 20; Cigarettes Per Day: 20; Second Hand Exposure: No; Hx Alcohol Use: No Hx Substance Use: No Preferred Language: Slovak Communication Ability: Effective Visual Impairment: No Limitations Hearing Ability: Normal Weaving Instructor Required: No Beliefs That Will Affect Care: None marital status: Current Living Situation: Spouse current occupational status: unemployed 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 other: raising a grandchild as well; lives in [place] Feels Safe at Home: Yes during the past year weight has: remained stable Assistive Devices: Walker and Wheelchair Allergies Allergies Allergy/AdvReac Type Severity Reaction Status Date / Time morphine Allergy Severe blisters Verified 04/06/22 21:38 in mouth Sulfa (Sulfonamide Allergy Severe rash/swelli Verified 04/06/22 21:38 Antibiotics) ng iron [From Venofer] Allergy Intermediate Hypertensio Verified 04/06/22 21:38 n vancomycin Allergy Intermediate YULIYA Verified 04/06/22 21:38 SYNDROME---CAN TAKE IF VERY SLOW DRIP. amoxicillin [From Augmentin] Allergy Mild itching/power Verified 04/06/22 21:38 h clavulanic acid Allergy Mild itching/power Verified 04/06/22 21:38 [From Augmentin] h dermabond AdvReac excoriates Uncoded 04/06/22 21:40 skin Home Meds Home Medications Medication Instructions Recorded Confirmed ropinirole 2 mg tablet 4 mg PO HS 10/19/20 04/06/22 metoprolol succinate 50 mg 50 mg PO QAM 03/05/21 04/06/22 tablet,extended release 24 hr (Toprol XL) lorazepam 1 mg tablet (Ativan) 1 mg PO TID PRN Anxiety 11/04/21 04/06/22 cyclobenzaprine 10 mg tablet 10 mg PO BID PRN Muscle Spasm 11/24/21 04/06/22 insulin glargine 100 unit/mL (3 20 unit subcut HS 03/08/22 04/06/22 mL) subcutaneous pen (Lantus Solostar U-100 Insulin) insulin lispro 100 unit/mL 5 unit subcut TIDM 03/08/22 04/06/22 subcutaneous pen ondansetron 8 mg disintegrating 8 mg translingual TID PRN Nausea 03/08/22 04/06/22 tablet zolpidem 10 mg tablet 10 mg PO HS PRN Sleep 03/08/22 04/06/22 Previous Rx's Medication Instructions Recorded aspirin 81 mg tablet,delayed 81 mg PO BID #60 tabs 10/04/21 release (Melissa Low Dose Aspirin) metoclopramide HCl 5 mg tablet 5 mg PO AC #90 tabs 12/26/21 oxycodone-acetaminophen 5 mg-325 2 tab PO Q4H PRN moderate to 12/26/21 mg tablet (Percocet) severe breakthrough pain #30 tabs amlodipine 5 mg tablet (Norvasc) 5 mg PO QAM 30 days #30 tabs 03/16/22 clopidogrel 75 mg tablet 75 mg PO QAM #30 tabs 03/30/22 pregabalin 100 mg capsule (Lyrica) 100 mg PO TID 30 days #90 caps 03/30/22 doxycycline hyclate 100 mg capsule 100 mg PO BID #3 caps 04/03/22 Results & Data (ED) Vital Signs Vital Signs - 24 hr 04/06/22 18:20 04/06/22 21:50 04/06/22 23:00 Temperature 36.1 C L Temperature Source Temporal Artery Scan Pulse Rate 105 H Pulse Rate [Left Radial] 78 109 H Pulse Rhythm [Left Radial] Regular Regular Pulse Strength [Left Radial] Normal Respiratory Rate 18 20 18 Respiratory Effort / Characteristics Non-Labored Non-Labored Spontaneous Respiratory Depth Normal Normal Respiratory Pattern Regular Blood Pressure 118/72 Blood Pressure [Left Arm] 194/90 H 200/105 H Blood Pressure Mean 87 Blood Pressure Mean [Left Arm] 124 136 Blood Pressure Position [Left Arm] Semi-fowlers Pulse Oximetry 97 97 100 Oxygen Delivery Method Room Air Room Air Room Air Sepsis Recent Fever Within 48 Hours No Sepsis New/Unexplained Change in Mental Status No Sepsis Action Taken by Nursing No Action Required Laboratory Data Result diagrams: 04/06/22 18:36 04/06/22 18:36 Lab Results 04/06/22 04/06/22 04/06/22 Range/Units 18:36 18:36 18:36 WBC 17.60 H (4.8-10.8) K/ul RBC 4.66 (3.93-5.22) M/uL Hgb 11.0 L (12.0-16.0) g/dl Hct 35.4 (34.1-44.9) % MCV 76.0 L (80.0-100.0) fL MCH 23.6 L (25.0-34.0) pg MCHC 31.1 L (32.0-36.0) g/dL RDW Std Deviation 45.6 (36.4-46.3) fL RDW Coeff of Maria Del Carmen 17.5 H (11.5-14.5) % Plt Count 279 (130-400) K/uL MPV 10.0 (9.4-12.3) fL Immature Gran % (Auto) 0.8 % Neut % (Auto) 66.7 % Lymph % (Auto) 19.9 % Ogle % (Auto) 7.0 % Eos % (Auto) 4.8 % Baso % (Auto) 0.8 % Neut # (Auto) 11.74 H (1.4-6.5) K/uL Lymph # (Auto) 3.50 H (1.2-3.4) K/uL Ogle # (Auto) 1.23 H (0.24-0.82) K/uL Eos # (Auto) 0.85 H (0-0.50) K/uL Baso # (Auto) 0.14 (0-0.2) K/uL Immature Gran # (Auto) 0.14 H (0.00-0.02) K/uL ESR 62 H (0-30) mm/hr Sodium (136-145) mmol/L Potassium (3.5-5.1) mmol/L Chloride (98-107) mmol/L Carbon Dioxide (21-32) mmol/L Anion Gap (3-11) BUN (6-23) mg/dl Creatinine (0.6-1.2) mg/dl Est Cr Clr Drug Dosing Est GFR ( Amer) ml/min Est GFR (Non-Af Amer) ml/min BUN/Creatinine Ratio (10-20) Glucose (70-99(Fasting)) mg/dl Lactate 1.7 (0.4-2.0) mmol/L Calcium (8.5-10.1) mg/dl Total Bilirubin (0.2-1.0) mg/dl AST (13-39) U/L ALT (7-52) U/L Alkaline Phosphatase (34-104) U/L C-Reactive Protein (0-0.5) mg/dl Total Protein (6.0-8.3) gm/dl Albumin (3.4-5.0) gm/dl Globulin (2.5-4.0) gm/dl Albumin/Globulin Ratio (0.9-2) Procalcitonin (0-0.5) ng/ml SARS-CoV-2, RNA, NAAT (NEGATIVE) 04/06/22 04/06/22 04/06/22 Range/Units 18:36 18:36 21:18 WBC (4.8-10.8) K/ul RBC (3.93-5.22) M/uL Hgb (12.0-16.0) g/dl Hct (34.1-44.9) % MCV (80.0-100.0) fL MCH (25.0-34.0) pg MCHC (32.0-36.0) g/dL RDW Std Deviation (36.4-46.3) fL RDW Coeff of Maria Del Carmen (11.5-14.5) % Plt Count (130-400) K/uL MPV (9.4-12.3) fL Immature Gran % (Auto) % Neut % (Auto) % Lymph % (Auto) % Ogle % (Auto) % Eos % (Auto) % Baso % (Auto) % Neut # (Auto) (1.4-6.5) K/uL Lymph # (Auto) (1.2-3.4) K/uL Ogle # (Auto) (0.24-0.82) K/uL Eos # (Auto) (0-0.50) K/uL Baso # (Auto) (0-0.2) K/uL Immature Gran # (Auto) (0.00-0.02) K/uL ESR (0-30) mm/hr Sodium 136 (136-145) mmol/L Potassium 3.8 (3.5-5.1) mmol/L Chloride 101 (98-107) mmol/L Carbon Dioxide 26 (21-32) mmol/L Anion Gap 9 (3-11) BUN 11 (6-23) mg/dl Creatinine 0.60 (0.6-1.2) mg/dl Est Cr Clr Drug Dosing Not Reportable Est GFR ( Amer) 117.3 ml/min Est GFR (Non-Af Amer) 101.2 ml/min BUN/Creatinine Ratio 18.3 (10-20) Glucose 259 H (70-99(Fasting)) mg/dl Lactate (0.4-2.0) mmol/L Calcium 9.8 (8.5-10.1) mg/dl Total Bilirubin 0.4 (0.2-1.0) mg/dl AST 10 L (13-39) U/L ALT 13 (7-52) U/L Alkaline Phosphatase 95 (34-104) U/L C-Reactive Protein 2.00 H (0-0.5) mg/dl Total Protein 7.5 (6.0-8.3) gm/dl Albumin 4.4 (3.4-5.0) gm/dl Globulin 3.1 (2.5-4.0) gm/dl Albumin/Globulin Ratio 1.4 (0.9-2) Procalcitonin < 0.05 (0-0.5) ng/ml SARS-CoV-2, RNA, NAAT NEGATIVE (NEGATIVE) Administered Medications Ondansetron HCl (Ondansetron Inj 2 Mg/Ml 2 Ml Vial) 4 mg IV Q6H PRN PRN Reason: Nausea And Vomiting Stop: 05/06/22 22:28 Last Admin: 04/06/22 23:37 Dose: 4 mg Documented By: BERNARDA Pregabalin (Pregabalin 100 Mg Cap) 100 mg PO BID RICKY Stop: 05/06/22 22:29 Last Admin: 04/06/22 23:46 Dose: 100 mg Documented By: BERNARDA Discontinued Medications Hydromorphone HCl (Hydromorphone Inj 1 Mg/Ml Syringe) 1 mg IV NOW STA Stop: 04/06/22 20:40 Last Admin: 04/06/22 21:19 Dose: 1 mg Documented By: BERNARDA Hydromorphone HCl (Hydromorphone Inj 1 Mg/Ml Syringe) 1 mg IV NOW STA Stop: 04/06/22 23:26 Last Admin: 04/06/22 23:37 Dose: 1 mg Documented By: BERNARDA Vancomycin HCl 1,500 mg/ (Sodium Chloride) 280 mls @ 100 mls/hr IV NOW STA; Protocol Stop: 04/06/22 23:37 Last Admin: 04/06/22 22:32 Dose: 100 mls/hr Documented By: BERNARDA Insulin Glargine (Lantus Per Unit Charge) 10 units SQ NOW STA Stop: 04/06/22 22:30 Last Admin: 04/06/22 23:45 Dose: 10 units Documented By: BERNARDA Co-signed By: MADELINE Imaging Data Radiologist's Impression: Foot X-Ray 04/06/22 18:27 LEFT FOOT 3 VIEWS CLINICAL HISTORY: Left foot infection. FINDINGS: 3 views of the left foot are compared to study dated 03/08/2022 and correlated with MRI of the left foot dated 03/19/2022. The skeletal structures are osteopenic. No fracture is seen. There is no bony erosion or periostitis. Minimal degenerative spurring is seen along the dorsal aspect of the tarsal bones. There is minimal degenerative change at the first metatarsophalangeal joint. The overlying soft tissues are normal as imaged. IMPRESSION: No acute bony abnormality is identified. Electronically signed by: Finn Bradshaw M.D. 04/06/2022 7:16 PM Discharge Plan Visit Data Chief Complaint: Infection Stated Complaint: MERSA IN L FOOT REF BY FOR ADMIT ED Provider: John Saez Discharge Problem: Cellulitis of left foot, History of right below knee amputation, Diabetic foot ulcer Patient Disposition: Admitted As Inpatient Forms Stand Alone Forms: [facility] Prescriptions Prescriptions: No Action metoprolol succinate [Toprol XL] 50 mg tablet extended release 24 hr 50 mg PO QAM ropinirole 2 mg Tablet 4 mg PO HS cyclobenzaprine 10 mg tablet 10 mg PO BID PRN (Reason: Muscle Spasm) aspirin [Melissa Low Dose Aspirin] 81 mg Tablet,Delayed Release (Dr/Ec) 81 mg PO BID Qty: 60 0RF lorazepam [Ativan] 1 mg tablet 1 mg PO TID PRN (Reason: Anxiety) metoclopramide HCl 5 mg Tablet 5 mg PO AC Qty: 90 0RF oxycodone-acetaminophen [Percocet] 5-325 mg Tablet 2 tab PO Q4H PRN (Reason: moderate to severe breakthrough pain) Qty: 30 0RF zolpidem 10 mg tablet 10 mg PO HS PRN (Reason: Sleep) Rx Instructions: do not take within 3 hours of opiod pain med insulin lispro 100 unit/mL insulin pen 5 unit SUBCUT TIDM Rx Instructions: plus sliding scale insulin glargine [Lantus Solostar U-100 Insulin] 100 unit/mL (3 mL) insulin pen 20 unit SUBCUT HS ondansetron 8 mg tablet,disintegrating 8 mg translingual TID PRN (Reason: Nausea) amlodipine [Norvasc] 5 mg Tablet 5 mg PO QAM 30 Days Qty: 30 0RF clopidogrel 75 mg Tablet 75 mg PO QAM Qty: 30 0RF pregabalin [Lyrica] 100 mg Capsule 100 mg PO TID 30 Days Qty: 90 0RF doxycycline hyclate 100 mg Capsule 100 mg PO BID Qty: 3 0RF Referrals Referrals: Vince Vernon DO [Primary Care Provider] -
[2022-04-06] MEDS: ONDANSETRON INJ 2 MG/ML 2 ML VIAL IV PRN (23:37)
[2022-04-06] MEDS: PREGABALIN 100 MG CAP PO SCH (23:46)
[2022-04-07] MEDS ORDERED: VANCOMYCIN CONSULT ACTIVE PRN (01:01)
[2022-04-07] MEDS ORDERED: GLUCAGON FOR INJ 1 MG VIAL SQ PRN (01:01)
[2022-04-07] MEDS ORDERED: DEXTROSE 50% 50 ML SYRINGE IV PRN (01:01)
[2022-04-07] MEDS ORDERED: HYDROmorphone INJ 0.5 MG/0.5 ML SYR IV PRN (01:01)
[2022-04-07] MEDS ORDERED: CARBOHYDRATES FOR HYPOGLYCEMIA PO PRN (01:01)
[2022-04-07] MEDS ORDERED: GLUCOSE 40% GEL 15 GM TUBE PO PRN (01:01)
[2022-04-07] MEDS ORDERED: ACETAMINOPHEN 325 MG TAB PO PRN (01:01)
[2022-04-07] MEDS ORDERED: GLUCOSE 10 TAB/TUBE PO PRN (01:01)
[2022-04-07] MEDS: INSULIN ASPART PER UNIT SC SCH ×5 (01:31→20:55)
[2022-04-07 01:36] LABS: Magnesium 1.8 mg/dl (1.7-2.4); Phosphorus 3.9 mg/dl (2.5-4.9)
[2022-04-07] MEDS: ZOLPIDEM TARTRATE 10 MG TAB PO PRN ×2 (02:30→20:10)
[2022-04-07] MEDS: LORazepam 1 MG TAB PO PRN ×3 (02:30→21:50)
[2022-04-07] MEDS ORDERED: HYDROmorphone INJ 1 MG/ML SYRINGE IV STA (05:01)
[2022-04-07] MEDS: VANCOMYCIN HCL 1,000 MG in SODIUM CHLORIDE 0.9% 250 ML IV SCH ×3 (05:13→21:24)
[2022-04-07] MEDS: ONDANSETRON INJ 2 MG/ML 2 ML VIAL IV PRN ×3 (05:29→21:50)
[2022-04-07 06:42] LABS: Basophils % (auto) 0.8 %; Eosinophils # (auto) 0.69 K/uL (0-0.50); Eosinophils % (auto) 5.3 %; Hematocrit (blood only) 35.7 % (34.1-44.9); Hemoglobin 10.9 g/dl (12.0-16.0); Immature Granulocytes # (auto) 0.07 K/uL (0.00-0.02); Immature Granulocytes % (auto) 0.5 %; Lymphocytes # (auto) 3.21 K/uL (1.2-3.4); Lymphocytes % (auto) 24.9 %; Mean Corpuscular Hemoglobin 23.1 pg (25.0-34.0); Mean Corpuscular Hgb Conc 30.5 g/dL (32.0-36.0); Mean Corpuscular Volume 75.8 fL (80.0-100.0); Mean Platelet Volume 9.6 fL (9.4-12.3); Monocytes # (auto) 1.04 K/uL (0.24-0.82); Monocytes % (auto) 8.1 %; Neutrophils % (auto) 60.4 %; Platelet Count 246 K/uL (130-400); RDW Coefficient of Variation 17.2 % (11.5-14.5); RDW Standard Deviation 45.1 fL (36.4-46.3); Red Blood Count 4.71 M/uL (3.93-5.22); White Blood Count 12.91 K/ul (4.8-10.8)
[2022-04-07 07:09] LABS: BUN Creatinine Ratio 17.4 (10-20); Calcium 9.4 mg/dl (8.5-10.1); Creatinine Clr Calc Pharmacy 122.8 ml/min; Est GFR (Non-African American) 110.4 ml/min; Potassium 3.7 mmol/L (3.5-5.1)
[2022-04-07] MEDS: CLOPIDOGREL BISULFATE 75 MG TAB PO SCH (07:29)
[2022-04-07] MEDS: amLODIPine BESYLATE 5 MG TAB PO SCH (07:29)
[2022-04-07] MEDS: METOCLOPRAMIDE HCL 5 MG TABLET PO SCH ×3 (07:29→17:06)
[2022-04-07] MEDS: ASPIRIN 81 MG ECTAB PO SCH (07:30)
[2022-04-07] MEDS: DOCUSATE SODIUM 100 MG CAP PO SCH ×2 (07:30→20:13)
[2022-04-07] MEDS: METOPROLOL SUCC 50MG EXT REL TAB PO SCH (07:30)
[2022-04-07] MEDS: oxyCODONE/ACETAMINOPHEN 5mg/325mg TAB PO PRN ×3 (07:33→21:22)
[2022-04-07] MEDS: PREGABALIN 100 MG CAP PO SCH ×4 (07:34→20:13)
[2022-04-07 07:49] LABS: Albumin Level 4.2 gm/dl (3.4-5.0); Bilirubin Direct 0.1 mg/dl (0-0.2); Bilirubin,Total 0.4 mg/dl (0.2-1.0); Total Protein 7.3 gm/dl (6.0-8.3)
[2022-04-07] MEDS ORDERED: POLYETHYLENE (MIRALAX) 17 GM PACK PO PRN (08:21)
[2022-04-07] MEDS: LANTUS PER UNIT CHARGE SQ SCH ×2 (08:53→21:22)
[2022-04-07] MEDS: SENNA 8.6 MG TAB PO SCH (08:53)
[2022-04-07] MEDS: HYDROmorphone INJ 0.5 MG/0.5 ML SYR IV PRN ×4 (08:57→21:50)
[2022-04-07] MEDS ORDERED: ASPIRIN 81 MG ECTAB PO SCH (09:00)
--- NOTE | 2022-04-07 10:13 | Pharmacy Report ---
Pharmacy PK ABX Note - Date of Service April 07, 2022 - Assessment and Plan Assessment 56 year old F receiving Vancomycin for treatment of LLE cellulitis. Patient has been on Vancomycin several times in the past for same issue. * PMHx significant for T2DM with multiple diabetic foot infections s/p R BKA. Was recently here from 03/08/22-03/16/22 then again from 03/19/22-04/03/22 for similar issues. Multiple recent abx. 03/11/22 LLE culture grew MRSA. Allergies to sulfa and Augmentin. 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 * Afebrile. ESR/CRP mildly elevated. LLE XR not suggestive of osteomyelitis. Renal fxn stable. Leukocytosis improved to 13k today. Blood and foot cultures pending. Plan Vancomycin * Loading dose: 1500 mg IV x 1 * Maintenance dose: 1000 mg IV every 8 hours * Regimen is predicted to achieve target AUC/CELSO of 400-600 mg/L.hr * Trough level ordered for: 04/08/22 Pharmacy will continue to follow and will adjust dose/frequency as necessary. Thank you. Pharmacy has transitioned to AUC monitoring for vancomycin. AUC/CELSO is the preferred PK/PD target and is associated with decreased risk of nephrotoxicity compared to traditional trough targets.
--- NOTE | 2022-04-07 13:18 | Orthopedic Consultation ---
Date of Consultation April 07, 2022 Assessment & Plan (1) Cellulitis: Continued cellulitis of the left great toe and plantar surface of the forefoot. What ever cellulitis and swelling she had of the dorsum of the forefoot appears to have resolved. I am unable to express much in the way of anything that looks purulent out of the great toe at this time. X-rays have been reviewed and showed no obvious bony erosions or signs of osteomyelitis at this time. I will discussed the case with Dr. Montaño. With as little swelling as she has at this time, I am not sure an MRI is needed but will discuss with Dr. Montaño as well. Continue daily dressing changes with Xeroform gauze on the wounds. Continue IV antibiotics. I will order a postop shoe for ambulating back and forth to the bathroom. She must remain weightbearing as tolerated on the left heel only. 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 Good this year after a lengthy attempted treatment of ulcerations/abscesses of her right great toe and her forefoot. Patient has been hospitalized multiple times over the last 5 months for varying degrees of foot ulcerations. She had just recently been discharged for treatment of a left foot ulceration and cellulitis. At the time of discharge, she was given doxycycline to be taken 2 weeks. Patient states that when she got home, that she began having worsening pain in that foot and also noticed increased swelling and redness. She did a quick follow-up appointment yesterday and was noted that she had a fair amount of cellulitis with streaks going up her forefoot to her ankle and question of purulence coming from her left great toe. [place] that she needed to be admitted for further treatment. She came to [facility] and was thusly admitted under the hospitalist service. Been asked to see her for her left foot. Allergies Allergy/AdvReac Type Severity Reaction Status Date / Time morphine Allergy Severe blisters Verified 04/06/22 21:38 in mouth Sulfa (Sulfonamide Allergy Severe rash/swelli Verified 04/06/22 21:38 Antibiotics) ng iron [From Venofer] Allergy Intermediate Hypertensio Verified 04/06/22 21:38 n vancomycin Allergy Intermediate YULIYA Verified 04/06/22 21:38 SYNDROME---CAN TAKE IF VERY SLOW DRIP. amoxicillin [From Augmentin] Allergy Mild itching/power Verified 04/06/22 21:38 h clavulanic acid Allergy Mild itching/power Verified 04/06/22 21:38 [From Augmentin] h dermabond AdvReac excoriates Uncoded 04/06/22 21:40 skin Home Medications Medication Instructions Recorded Confirmed Type ropinirole 2 mg tablet 4 mg PO HS 10/19/20 04/06/22 History metoprolol succinate 50 mg 50 mg PO QAM 03/05/21 04/06/22 History tablet,extended release 24 hr (Toprol XL) aspirin 81 mg tablet,delayed 81 mg PO BID #60 tabs 10/04/21 04/07/22 Rx release (Melissa Low Dose Aspirin) lorazepam 1 mg tablet (Ativan) 1 mg PO TID PRN Anxiety 11/04/21 04/06/22 History cyclobenzaprine 10 mg tablet 10 mg PO BID PRN Muscle Spasm 11/24/21 04/06/22 History metoclopramide HCl 5 mg tablet 5 mg PO AC #90 tabs 12/26/21 04/06/22 Rx oxycodone-acetaminophen 5 mg-325 2 tab PO Q4H PRN moderate to 12/26/21 04/06/22 Rx mg tablet (Percocet) severe breakthrough pain #30 tabs insulin glargine 100 unit/mL (3 20 unit subcut HS 03/08/22 04/06/22 History mL) subcutaneous pen (Lantus Solostar U-100 Insulin) insulin lispro 100 unit/mL 5 unit subcut TIDM 03/08/22 04/06/22 History subcutaneous pen ondansetron 8 mg disintegrating 8 mg translingual TID PRN Nausea 03/08/22 04/06/22 History tablet zolpidem 10 mg tablet 10 mg PO HS PRN Sleep 03/08/22 04/06/22 History amlodipine 5 mg tablet (Norvasc) 5 mg PO QAM 30 days #30 tabs 03/16/22 04/06/22 Rx clopidogrel 75 mg tablet 75 mg PO QAM #30 tabs 03/30/22 04/06/22 Rx pregabalin 100 mg capsule (Lyrica) 100 mg PO TID 30 days #90 caps 03/30/22 04/06/22 Rx doxycycline hyclate 100 mg capsule 100 mg PO BID #3 caps 04/03/22 04/06/22 Rx Patient History Medical History (Updated 04/07/22 @ 22:35 by Lisa Downing RN) Acidosis, lactic Acute dehydration 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 No issues per anesthesia postop progress note. Anemia Cellulitis Chronic back pain Depression Diabetic peripheral neuropathy DM2 (diabetes mellitus, type 2) IDDM, A1c 07/2021-11% Gastritis Gastroenteritis GIB (gastrointestinal bleeding) History of amputation of great toe Hyperlipidemia Insulin dependent diabetes mellitus Iron deficiency anemia Nonobstructive atherosclerosis of coronary artery Numbness of lower extremity Opiate abuse, continuous Opiate dependence Peripheral neuropathy Right second toe ulcer Seizures Sepsis Surgical History History of cardiac cath done at [facility]; 09/22/19; LM - mild luminal irregularities. LAD - mid 20-30%, distal with myocardial bridge & 30% stenosis. L Cx - mild luminal irregularities. RCA - proximal <30% stenosis; mid/distal vessel mild plaques. PDA - mild luminal irregularities. History of esophagogastroduodenoscopy (EGD) History of right below knee amputation (12/22/21) Right Below Knee Amputation(Right) - Davon Good MD, FACS Family History Mother , age 63 Myocardial infarction Father , age 68 or 69 Myocardial infarction Brother S/P CABG (coronary artery bypass graft) Sister Myocardial infarction x 3; she is 57yo Social History Smoking Status: Current every day smoker Tobacco Type: Cigarettes packs per day: 0.5; Years Smoked: 20; Cigarettes Per Day: 20; Second Hand Exposure: No; Hx Alcohol Use: No Hx Substance Use: Yes Prescribed Medications: Marijuana Last Used Substance: Days (ago) Last Used Substance Other:: 2 days ago Substance Use Type Other:: medical marijuana Preferred Language: Thai Communication Ability: Effective Visual Impairment: No Limitations Hearing Ability: Normal Programmer Operator Numerical Control Required: No Beliefs That Will Affect Care: None marital status: Current Living Situation: Spouse current occupational status: unemployed 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 other: raising a grandchild as well; lives in [place] Feels Safe at Home: Yes Safety Concerns: Feels Safe At This Time during the past year weight has: remained stable Assistive Devices: Walker and Wheelchair Physical Exam Physical Exam: Patient seen with Holley Hutchinson RN from wound care team. She is awake and alert, oriented x3. Pleasant and cooperative. She does appear to be in mild to moderate distress due to left foot pain. Examination of her left foot, there is no overt swelling noted of the dorsum of the foot. There is no cellulitis seen and no red streaks or striations going up the extremity. He is able to move her toes but moving her left great toe causes her discomfort. He has a noted dry look to the plantar surface of her left great toe with noted erythema. Portions of the skin is cracking. The toe itself is not overtly swollen but the majority of the plantar aspect of the great toe is erythematous. She has 1 small area over the medial aspect of the great toe that has some slight serous drainage noted that does not look purulent. The toe is painful on palpation. It feels fairly firm and I cannot appreciate any fluctuations or feel any abscess pockets. Capillary refill is less than 2 seconds and she has a strong dorsalis pedis pulse. There is no foul odors. A portion of the forefoot at the base of the toes has the same dried erythematous and cracking of the skin look to it. Again this does not feel as if there is any pockets of fluid or lurking beneath. Xeroform dressing applied to the dried wounds and covered with 4 x 4's and a Kerlix. Results & Data ([facility]) Vital Signs (Past 12 Hours) Vital Signs Temp Pulse Resp BP Pulse Ox O2 Del Method 04/07/22 08:00 Room Air 04/07/22 06:29 36.6 C 101 H 20 162/89 H 100 04/07/22 03:09 36.9 C 102 H 22 189/94 H Room Air Laboratory Results Laboratory Results WBC 12.91 K/ul (4.8-10.8) H 04/07/22 06:06 RBC 4.71 M/uL (3.93-5.22) 04/07/22 06:06 Hgb 10.9 g/dl (12.0-16.0) L 04/07/22 06:06 Hct 35.7 % (34.1-44.9) 04/07/22 06:06 MCV 75.8 fL (80.0-100.0) L 04/07/22 06:06 MCH 23.1 pg (25.0-34.0) L 04/07/22 06:06 MCHC 30.5 g/dL (32.0-36.0) L 04/07/22 06:06 RDW Std Deviation 45.1 fL (36.4-46.3) 04/07/22 06:06 RDW Coeff of Maria Del Carmen 17.2 % (11.5-14.5) H 04/07/22 06:06 Plt Count 246 K/uL (130-400) 04/07/22 06:06 MPV 9.6 fL (9.4-12.3) 04/07/22 06:06 Immature Gran % (Auto) 0.5 % 04/07/22 06:06 Neut % (Auto) 60.4 % 04/07/22 06:06 Lymph % (Auto) 24.9 % 04/07/22 06:06 Pine % (Auto) 8.1 % 04/07/22 06:06 Eos % (Auto) 5.3 % 04/07/22 06:06 Baso % (Auto) 0.8 % 04/07/22 06:06 Neut # (Auto) 7.80 K/uL (1.4-6.5) H 04/07/22 06:06 Lymph # (Auto) 3.21 K/uL (1.2-3.4) 04/07/22 06:06 Pine # (Auto) 1.04 K/uL (0.24-0.82) H 04/07/22 06:06 Eos # (Auto) 0.69 K/uL (0-0.50) H 04/07/22 06:06 Baso # (Auto) 0.10 K/uL (0-0.2) 04/07/22 06:06 Immature Gran # (Auto) 0.07 K/uL (0.00-0.02) H 04/07/22 06:06 ESR 62 mm/hr (0-30) H 04/06/22 18:36 Sodium 138 mmol/L (136-145) 04/07/22 06:06 Potassium 3.7 mmol/L (3.5-5.1) 04/07/22 06:06 Chloride 102 mmol/L (98-107) 04/07/22 06:06 Carbon Dioxide 26 mmol/L (21-32) 04/07/22 06:06 Anion Gap 10 (3-11) 04/07/22 06:06 BUN 8 mg/dl (6-23) 04/07/22 06:06 Creatinine 0.46 mg/dl (0.6-1.2) L 04/07/22 06:06 Est Cr Clr Drug Dosing 122.8 ml/min 04/07/22 06:06 Est GFR ( Amer) 128.0 ml/min 04/07/22 06:06 Est GFR (Non-Af Amer) 110.4 ml/min 04/07/22 06:06 BUN/Creatinine Ratio 17.4 (10-20) 04/07/22 06:06 Glucose 149 mg/dl (70-99(Fasting)) H 04/07/22 06:06 POC Glucose 119 mg/dl (70-99) H 04/07/22 12:14 Lactate 1.7 mmol/L (0.4-2.0) 04/06/22 18:36 Calcium 9.4 mg/dl (8.5-10.1) 04/07/22 06:06 Phosphorus 3.9 mg/dl (2.5-4.9) 04/06/22 20:45 Magnesium 1.8 mg/dl (1.7-2.4) 04/06/22 20:45 Total Bilirubin 0.4 mg/dl (0.2-1.0) 04/07/22 06:06 Direct Bilirubin 0.1 mg/dl (0-0.2) 04/07/22 06:06 AST 12 U/L (13-39) L 04/07/22 06:06 ALT 14 U/L (7-52) 04/07/22 06:06 Alkaline Phosphatase 93 U/L (34-104) 04/07/22 06:06 C-Reactive Protein 2.00 mg/dl (0-0.5) H 04/06/22 18:36 Total Protein 7.3 gm/dl (6.0-8.3) 04/07/22 06:06 Albumin 4.2 gm/dl (3.4-5.0) 04/07/22 06:06 Globulin 3.1 gm/dl (2.5-4.0) 04/06/22 18:36 Albumin/Globulin Ratio 1.4 (0.9-2) 04/06/22 18:36 Procalcitonin < 0.05 ng/ml (0-0.5) 04/06/22 18:36 SARS-CoV-2, RNA, NAAT NEGATIVE (NEGATIVE) 04/06/22 21:18 Impressions Foot X-Ray 04/06/22 18:27 LEFT FOOT 3 VIEWS CLINICAL HISTORY: Left foot infection. FINDINGS: 3 views of the left foot are compared to study dated 03/08/2022 and correlated with MRI of the left foot dated 03/19/2022. The skeletal structures are osteopenic. No fracture is seen. There is no bony erosion or periostitis. Minimal degenerative spurring is seen along the dorsal aspect of the tarsal bones. There is minimal degenerative change at the first metatarsophalangeal joint. The overlying soft tissues are normal as imaged. IMPRESSION: No acute bony abnormality is identified. Electronically signed by: Finn Bradshaw M.D. 04/06/2022 7:16 PM
[2022-04-07] MEDS: rOPINIRole HCL 2 MG TABLET PO SCH (20:10)
--- NOTE | 2022-04-07 22:25 | Hospitalist Progress Note ---
Date of Service April 07, 2022 Assessment & Plan (1) Cellulitis of left foot: Plan: Nontoxic. Palpable pulses. Consulted ortho. continue antibiotics as stated below. -Follow cultures -Vancomycin, patient with h/o MRSA infection -Wound care -Tylenol, Percocet, DIlaudid PRN -Flexeril PRN (2) Opioid dependence: Plan: Cautious use of opioids. Goal to control patient's pain with low doses of opio ids (3) Anxiety: Plan: Chronic -Ativan TID PRN (4) HTN (hypertension): Plan: Chronic. Elevated with pain, anxiety and agitation -Continue Amlodipine -Continue Metoprolol (5) Diabetes mellitus type 2, uncontrolled: Plan: Chronic -Lantus 15u BID with ISS -Goal blood sugar 100 - 140 -Continue Reglan -Continue Lyrica (6) PAD (peripheral artery disease): Plan: Chronic -Continue ASA - will change to daily -Continue Plavix Admission and Anticipated Discharge Date Admission Date: April 06, 2022 Subjective 56 yo female reports no new symptoms. Continues to have foot pain. Review of Systems Review of Systems: All systems reviewed & are unremarkable except as noted in HPI & below Physical Exam Physical Exam: General: patient chronically ill in appearance, non-toxic, NAD Skin: warm, dry, left foot with mild warmth and redness present on dorsum of foot, shallow based ulcer present on right great toe and plantar surface of foot, granulation tissue with some eschar, some purulence, no crepitus, no bullae HEENT: NC/AT, PERRL, EOMI, anicteric sclera, conjunctiva without injection, external ear normal to inspection and nontender, nares patent, moist mucus membranes, dentition intact, no oropharyngeal lesions, neck supple, trachea midline, no LAD, no thyromegaly, no JVD Heart: +S1/S2, regular, no m/r/g Lungs: equal air entry bilaterally, no rales/rhonchi/wheezes Abd: +BS, soft, NT/ND, no masses/organomegaly/ascites Ext: s/p right BKA, stump well healed, nontender, LLE as above Neuro: nonfocal, patient AA&O x 4, speech intact, no facial droop, moving all extremities on command with equal strength 5/5 Results & Data Results & Data ([place]) Vital Signs (Past 12 Hours) Vital Signs Temp Pulse Resp BP Pulse Ox O2 Del Method 04/07/22 21:16 37.6 C H 97 H 18 176/75 H 99 Room Air 04/07/22 16:09 36.6 C 93 H 16 138/72 95 Room Air PG Care Time/CCT Total # of Minutes Spent Total Time Spent with Patient: Total time spent is greater than 50% in coordination of care (as documented) at patient's floor/unit and/or counseling patient: Coding Level of Care Code 06564 Subseq Hosp Care Lvl 2 Diagnoses Cellulitis of left foot L03.116 Opioid dependence F11.20 Anxiety F41.9 HTN (hypertension) I10 Diabetes mellitus type 2, uncontrolled E11.65 PAD (peripheral artery disease) I73.9 Time Spent (min) 25
[2022-04-08] MEDS: oxyCODONE/ACETAMINOPHEN 5mg/325mg TAB PO PRN ×4 (01:27→22:58)
[2022-04-08] MEDS: CYCLOBENZAPRINE HCL 10 MG TAB PO PRN (04:16)
[2022-04-08] MEDS: HYDROmorphone INJ 0.5 MG/0.5 ML SYR IV PRN ×4 (04:18→20:32)
[2022-04-08] MEDS: ONDANSETRON INJ 2 MG/ML 2 ML VIAL IV PRN ×2 (04:29→23:32)
[2022-04-08] MEDS ORDERED: VANCOMYCIN LEVEL ONE (05:30)
[2022-04-08] MEDS: VANCOMYCIN HCL 1,000 MG in SODIUM CHLORIDE 0.9% 250 ML IV SCH (06:19)
[2022-04-08 06:42] LABS: Est GFR (African American) 124.5 ml/min; Est GFR (Non-African American) 107.4 ml/min
[2022-04-08] MEDS: amLODIPine BESYLATE 5 MG TAB PO SCH (08:45)
[2022-04-08] MEDS: METOCLOPRAMIDE HCL 5 MG TABLET PO SCH ×3 (08:45→16:54)
[2022-04-08] MEDS: LORazepam 1 MG TAB PO PRN ×2 (08:45→18:36)
[2022-04-08] MEDS: ASPIRIN 81 MG ECTAB PO SCH (08:45)
[2022-04-08] MEDS: METOPROLOL SUCC 50MG EXT REL TAB PO SCH (08:45)
[2022-04-08] MEDS: DOCUSATE SODIUM 100 MG CAP PO SCH ×2 (08:45→20:30)
[2022-04-08] MEDS: PREGABALIN 100 MG CAP PO SCH ×3 (08:45→20:29)
[2022-04-08] MEDS: CLOPIDOGREL BISULFATE 75 MG TAB PO SCH (08:45)
[2022-04-08] MEDS: SENNA 8.6 MG TAB PO SCH (08:46)
--- NOTE | 2022-04-08 09:11 | Pharmacy Report ---
Pharmacy PK ABX Note - Date of Service April 08, 2022 - Assessment and Plan Assessment 04/08: * Vanc level today borderline low although likely pre-steady state. Will increase dose slightly today and repeat level tomorrow. Foot Culture still pending, blood culture no growth thus far. 04/07: 56 year old F receiving Vancomycin for treatment of LLE cellulitis. Patient has been on Vancomycin several times in the past for same issue. * PMHx significant for T2DM with multiple diabetic foot infections s/p R BKA. Was recently here from 03/08/22-03/16/22 then again from 03/19/22-04/03/22 for similar issues. Multiple recent abx. 03/11/22 LLE culture grew MRSA. Allergies to sulfa and Augmentin. 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 * Afebrile. ESR/CRP mildly elevated. LLE XR not suggestive of osteomyelitis. Renal fxn stable. Leukocytosis improved to 13k today. Blood and foot cultures pending. Plan Vancomycin * vanc trough today: 8.6 * Maintenance dose: increase to 1250 mg IV every 8 hours * Regimen is predicted to achieve target AUC/CELSO of 400-600 mg/L.hr * Trough level ordered for: 04/09/22 Pharmacy will continue to follow and will adjust dose/frequency as necessary. Thank you. Pharmacy has transitioned to AUC monitoring for vancomycin. AUC/CELSO is the preferred PK/PD target and is associated with decreased risk of nephrotoxicity compared to traditional trough targets.
[2022-04-08] MEDS: LANTUS PER UNIT CHARGE SQ SCH ×2 (10:31→21:00)
[2022-04-08] MEDS: INSULIN ASPART PER UNIT SC SCH ×4 (10:32→21:00)
[2022-04-08] MEDS: VANCOMYCIN HCL 1,250 MG in SODIUM CHLORIDE 0.9% 250 ML IV SCH ×2 (14:42→21:34)
[2022-04-08] MEDS: rOPINIRole HCL 2 MG TABLET PO SCH (20:29)
--- NOTE | 2022-04-08 22:02 | Hospitalist Progress Note ---
Date of Service April 08, 2022 Assessment & Plan (1) Cellulitis of left foot: Plan: Nontoxic. Palpable pulses. Consulted ortho. continue antibiotics as stated below. -Follow cultures: remains redning. -Vancomycin, patient with h/o MRSA infection -Wound care -Tylenol, Percocet, DIlaudid PRN -Flexeril PRN (2) Opioid dependence: Plan: Cautious use of opioids. Goal to control patient's pain with low doses of opioids (3) Anxiety: Plan: Chronic -Ativan TID PRN (4) HTN (hypertension): Plan: Chronic. Elevated with pain, anxiety and agitation -Continue Amlodipine -Continue Metoprolol (5) Diabetes mellitus type 2, uncontrolled: Plan: Chronic -Lantus 15u BID with ISS -Goal blood sugar 100 - 140 -Continue Reglan -Continue Lyrica (6) PAD (peripheral artery disease): Plan: Chronic -Continue ASA - will change to daily -Continue Plavix Admission and Anticipated Discharge Date Admission Date: April 06, 2022 Subjective 56 yo female reports no new symptoms. Review of Systems Review of Systems: All systems reviewed & are unremarkable except as noted in HPI & below Physical Exam Physical Exam: General: patient chronically ill in appearance, non-toxic, NAD Skin: warm, dry, left foot with mild warmth and redness present on dorsum of foot, shallow based ulcer present on right great toe and plantar surface of foot, granulation tissue with some eschar, some purulence, no crepitus, no bullae HEENT: NC/AT, PERRL, EOMI, anicteric sclera, conjunctiva without injection, external ear normal to inspection and nontender, nares patent, moist mucus membranes, dentition intact, no oropharyngeal lesions, neck supple, trachea midline, no LAD, no thyromegaly, no JVD Heart: +S1/S2, regular, no m/r/g Lungs: equal air entry bilaterally, no rales/rhonchi/wheezes Abd: +BS, soft, NT/ND, no masses/organomegaly/ascites Ext: s/p right BKA, stump well healed, nontender, LLE as above Neuro: nonfocal, patient AA&O x 4, speech intact, no facial droop, moving all extremities on command with equal strength 5/5 Results & Data Results & Data ([place]) Vital Signs (Past 12 Hours) Vital Signs Temp Pulse Resp BP Pulse Ox O2 Del Method 04/08/22 20:14 36.8 C 83 18 184/85 H 97 Room Air 04/08/22 14:50 36.7 C 77 16 132/70 97 Room Air PG Care Time/CCT Total # of Minutes Spent Total Time Spent with Patient: Total time spent is greater than 50% in coordination of care (as documented) at patient's floor/unit and/or counseling patient: Coding Level of Care Code 23756 Subseq Hosp Care Lvl 2 Diagnoses Cellulitis of left foot L03.116 Opioid dependence F11.20 Anxiety F41.9 HTN (hypertension) I10 Diabetes mellitus type 2, uncontrolled E11.65 PAD (peripheral artery disease) I73.9 Time Spent (min) 25
[2022-04-08] MEDS: ZOLPIDEM TARTRATE 10 MG TAB PO PRN (22:40)
[2022-04-09] MEDS: HYDROmorphone INJ 0.5 MG/0.5 ML SYR IV PRN ×6 (00:40→21:26)
[2022-04-09] MEDS: VANCOMYCIN HCL 1,250 MG in SODIUM CHLORIDE 0.9% 250 ML IV SCH ×3 (05:20→21:39)
[2022-04-09] MEDS: LORazepam 1 MG TAB PO PRN ×2 (05:39→17:10)
[2022-04-09] MEDS: CYCLOBENZAPRINE HCL 10 MG TAB PO PRN (05:39)
[2022-04-09] MEDS: ONDANSETRON INJ 2 MG/ML 2 ML VIAL IV PRN (07:22)
[2022-04-09 08:08] LABS: Hemoglobin 10.1 g/dl (12.0-16.0); Mean Corpuscular Hemoglobin 23.3 pg (25.0-34.0); Mean Corpuscular Hgb Conc 30.6 g/dL (32.0-36.0); Mean Platelet Volume 9.6 fL (9.4-12.3); Platelet Count 258 K/uL (130-400); RDW Coefficient of Variation 17.2 % (11.5-14.5); RDW Standard Deviation 45.9 fL (36.4-46.3); Red Blood Count 4.34 M/uL (3.93-5.22); White Blood Count 13.01 K/ul (4.8-10.8)
[2022-04-09] MEDS: CLOPIDOGREL BISULFATE 75 MG TAB PO SCH (08:40)
[2022-04-09] MEDS: METOPROLOL SUCC 50MG EXT REL TAB PO SCH (08:40)
[2022-04-09] MEDS: METOCLOPRAMIDE HCL 5 MG TABLET PO SCH ×3 (08:40→17:10)
[2022-04-09] MEDS: DOCUSATE SODIUM 100 MG CAP PO SCH ×2 (08:40→21:26)
[2022-04-09] MEDS: ASPIRIN 81 MG ECTAB PO SCH (08:40)
[2022-04-09] MEDS: amLODIPine BESYLATE 5 MG TAB PO SCH (08:40)
[2022-04-09] MEDS: SENNA 8.6 MG TAB PO SCH (08:41)
[2022-04-09] MEDS: INSULIN ASPART PER UNIT SC SCH ×4 (08:51→21:25)
[2022-04-09] MEDS: LANTUS PER UNIT CHARGE SQ SCH ×2 (08:52→21:25)
[2022-04-09] MEDS: PREGABALIN 100 MG CAP PO SCH ×3 (08:56→21:26)
[2022-04-09 08:57] LABS: BUN Creatinine Ratio 18.8 (10-20); C Reactive Protein 1.64 mg/dl (0-0.5); Calcium 9.4 mg/dl (8.5-10.1); Creatinine Clr Calc Pharmacy 117.7 ml/min; Est GFR (African American) 126.2 ml/min; Est GFR (Non-African American) 108.9 ml/min; Potassium 3.9 mmol/L (3.5-5.1)
[2022-04-09] MEDS ORDERED: VANCOMYCIN LEVEL ONE (13:30)
--- NOTE | 2022-04-09 14:44 | Pharmacy Report ---
Pharmacy PK ABX Note - Date of Service April 09, 2022 - Assessment and Plan Assessment 04/09: * Cx finalized growing diamante albicans and yeast not diamante albicans. Per provider will continue vanc at least through today. Patient afebrile. 04/08: * Vanc level today borderline low although likely pre-steady state. Will increase dose slightly today and repeat level tomorrow. Foot Culture still pending, blood culture no growth thus far. 04/07: 56 year old F receiving Vancomycin for treatment of LLE cellulitis. Patient has been on Vancomycin several times in the past for same issue. * PMHx significant for T2DM with multiple diabetic foot infections s/p R BKA. Was recently here from 03/08/22-03/16/22 then again from 03/19/22-04/03/22 for similar issues. Multiple recent abx. 03/11/22 LLE culture grew MRSA. Allergies to sulfa and Augmentin. 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 * Afebrile. ESR/CRP mildly elevated. LLE XR not suggestive of osteomyelitis. Renal fxn stable. Leukocytosis improved to 13k today. Blood and foot cultures pending. Plan Vancomycin * vanc trough today: 11.1 * Maintenance dose: continue 1250 mg IV every 8 hours * Regimen is predicted to achieve target AUC/CELSO of 400-600 mg/L.hr * Trough level ordered for: as clinically indicated Pharmacy will continue to follow and will adjust dose/frequency as necessary. Thank you. Pharmacy has transitioned to AUC monitoring for vancomycin. AUC/CELSO is the preferred PK/PD target and is associated with decreased risk of nephrotoxicity compared to traditional trough targets.
[2022-04-09] MEDS: rOPINIRole HCL 2 MG TABLET PO SCH (21:27)
--- NOTE | 2022-04-09 21:30 | Hospitalist Progress Note ---
Date of Service April 09, 2022 Assessment & Plan (1) Cellulitis of left foot: Plan: Nontoxic. Palpable pulses. Consulted ortho. continue antibiotics as stated below. -Follow cultures: remains redning. -Vancomycin, patient with h/o MRSA infection -Wound care -Tylenol, Percocet, DIlaudid PRN -Flexeril PRN -cultures growing diamante. will discuss with ortho discharge plan. possible discharge on sunday. (2) Opioid dependence: Plan: Cautious use of opioids. Goal to control patient's pain with low doses of opioids (3) Anxiety: Plan: Chronic -Ativan TID PRN (4) HTN (hypertension): Plan: Chronic. Elevated with pain, anxiety and agitation -Continue Amlodipine -Continue Metoprolol (5) Diabetes mellitus type 2, uncontrolled: Plan: Chronic -Lantus 15u BID with ISS -Goal blood sugar 100 - 140 -Continue Reglan -Continue Lyrica (6) PAD (peripheral artery disease): Plan: Chronic -Continue ASA - will change to daily -Continue Plavix Admission and Anticipated Discharge Date Admission Date: April 06, 2022 Subjective 56 yo female reports no new symptoms. Her pain is controled. Review of Systems Review of Systems: All systems reviewed & are unremarkable except as noted in HPI & below Physical Exam Physical Exam: General: patient chronically ill in appearance, non-toxic, NAD Skin: warm, dry, left foot with mild warmth and redness present on dorsum of foot, shallow based ulcer present on right great toe and plantar surface of foot, granulation tissue with some eschar, some purulence, no crepitus, no bullae HEENT: NC/AT, PERRL, EOMI, anicteric sclera, conjunctiva without injection, external ear normal to inspection and nontender, nares patent, moist mucus membranes, dentition intact, no oropharyngeal lesions, neck supple, trachea midline, no LAD, no thyromegaly, no JVD Heart: +S1/S2, regular, no m/r/g Lungs: equal air entry bilaterally, no rales/rhonchi/wheezes Abd: +BS, soft, NT/ND, no masses/organomegaly/ascites Ext: s/p right BKA, stump well healed, nontender, LLE as above Neuro: nonfocal, patient AA&O x 4, speech intact, no facial droop, moving all extremities on command with equal strength 5/5 Results & Data Results & Data ([facility]) Vital Signs (Past 12 Hours) Vital Signs Temp Pulse Resp BP Pulse Ox O2 Del Method 04/09/22 14:39 36.7 C 85 16 148/73 H 98 Room Air PG Care Time/CCT Total # of Minutes Spent Total Time Spent with Patient: Total time spent is greater than 50% in coordination of care (as documented) at patient's floor/unit and/or counseling patient: Coding Level of Care Code 52552 Subseq Hosp Care Lvl 2 Diagnoses Cellulitis of left foot L03.116 Opioid dependence F11.20 Anxiety F41.9 HTN (hypertension) I10 Diabetes mellitus type 2, uncontrolled E11.65 PAD (peripheral artery disease) I73.9 Time Spent (min) 25
[2022-04-09] MEDS: ZOLPIDEM TARTRATE 10 MG TAB PO PRN (21:33)
[2022-04-10] MEDS: HYDROmorphone INJ 0.5 MG/0.5 ML SYR IV PRN ×5 (01:17→19:53)
[2022-04-10] MEDS ORDERED: KETOROLAC TROMETHAMINE 15 MG/ML VIAL IV ONE (02:29)
[2022-04-10] MEDS: ONDANSETRON INJ 2 MG/ML 2 ML VIAL IV PRN (04:52)
[2022-04-10] MEDS: LORazepam 1 MG TAB PO PRN (04:52)
[2022-04-10] MEDS: VANCOMYCIN HCL 1,250 MG in SODIUM CHLORIDE 0.9% 250 ML IV SCH ×2 (05:42→18:27)
[2022-04-10 06:31] LABS: Hematocrit (blood only) 30.8 % (34.1-44.9); Hemoglobin 9.3 g/dl (12.0-16.0); Mean Corpuscular Hgb Conc 30.2 g/dL (32.0-36.0); Mean Platelet Volume 9.7 fL (9.4-12.3); Platelet Count 256 K/uL (130-400); RDW Standard Deviation 46.2 fL (36.4-46.3); Red Blood Count 4.05 M/uL (3.93-5.22); White Blood Count 13.79 K/ul (4.8-10.8)
[2022-04-10 06:58] LABS: BUN Creatinine Ratio 31.1 (10-20); C Reactive Protein 1.67 mg/dl (0-0.5); Calcium 8.8 mg/dl (8.5-10.1); Creatinine Clr Calc Pharmacy 125.6 ml/min; Est GFR (African American) 128.9 ml/min; Est GFR (Non-African American) 111.2 ml/min; Potassium 4.1 mmol/L (3.5-5.1)
[2022-04-10] MEDS: METOCLOPRAMIDE HCL 5 MG TABLET PO SCH ×3 (07:53→18:27)
[2022-04-10] MEDS: ASPIRIN 81 MG ECTAB PO SCH (08:23)
[2022-04-10] MEDS: METOPROLOL SUCC 50MG EXT REL TAB PO SCH (08:23)
[2022-04-10] MEDS: SENNA 8.6 MG TAB PO SCH (08:23)
[2022-04-10] MEDS: PREGABALIN 100 MG CAP PO SCH ×3 (08:23→22:08)
[2022-04-10] MEDS: CLOPIDOGREL BISULFATE 75 MG TAB PO SCH (08:23)
[2022-04-10] MEDS: DOCUSATE SODIUM 100 MG CAP PO SCH ×2 (08:23→22:06)
[2022-04-10] MEDS: amLODIPine BESYLATE 5 MG TAB PO SCH (08:23)
[2022-04-10] MEDS: INSULIN ASPART PER UNIT SC SCH ×4 (09:19→22:06)
[2022-04-10] MEDS: LANTUS PER UNIT CHARGE SQ SCH ×2 (09:20→22:06)
[2022-04-10] MEDS: oxyCODONE/ACETAMINOPHEN 5mg/325mg TAB PO PRN (09:28)
[2022-04-10] MEDS: cefTRIAXone SODIUM 2,000 MG in DEXTROSE 5% 50 ML IV SCH (13:36)
[2022-04-10] MEDS: metroNIDAZOLE 500 MG/100 ML BAG IV SCH ×2 (13:36→21:52)
[2022-04-10] MEDS: hydrOXYzine HCl 25 MG TAB PO PRN (14:58)
[2022-04-10] MEDS: HYDROmorphone INJ 1 MG/ML SYRINGE IV PRN (14:59)
--- NOTE | 2022-04-10 17:09 | Magnetic Resonance Report ---
MRI OF THE LEFT FOREFOOT WITHOUT CONTRAST CLINICAL HISTORY: Left diabetic foot infection. COMPARISON STUDY: MRI of the left forefoot March 19, 2022. Left foot radiographs April 04, 2022. TECHNIQUE: Utilizing a 1.5 Sariah magnet and dedicated coil, multiplanar, multi echo imaging of the le ft forefoot was performed without intravenous contrast. FINDINGS: Alignment of the left forefoot is anatomic. The tarsometatarsal joints are intact. No fract ure within the left forefoot is noted. There is no MR evidence for acute osteomyelitis. There is slig ht increased marrow signal within the distal phalanx of the left first toe however T1 signal is prese rved. Collection is identified to suggest an abscess. There is mild plantar subcutaneous edema of th e left first toe. This is similar to previous MRI of March 19, 2022. No erosions are identified. No j oint effusions are identified. Appearance of the left forefoot is similar to previous MRI. IMPRESSION: 1. No evidence for acute osteomyelitis within the left forefoot. 2. Mild subcutaneous plantar edema of the left first toe. This may reflect cellulitis. No fluid inna ection to suggest abscess. 3. No significant change since MRI of March 19, 2022. ACT 112: Negative or not required by law. Electronically signed by: Wilver Powell M.D. 04/10/2022 5:07 PM
--- NOTE | 2022-04-10 21:19 | Hospitalist Progress Note ---
Date of Service April 10, 2022 Assessment & Plan (1) Cellulitis of left foot: Plan: Nontoxic. Palpable pulses. Consulted ortho. continue antibiotics as stated below. -Follow cultures: remains redning. -Vancomycin, patient with h/o MRSA infection -Wound care -Tylenol, Percocet, DIlaudid PRN -Flexeril PRN -cultures growing diamante. given worsening wbc and more erythema, will add ceftriaxone and flagyl. also will obtain an MRI (2) Opioid dependence: Plan: Cautious use of opioids. Goal to control patient's pain with low doses of opioids (3) Anxiety: Plan: Chronic -Ativan TID PRN (4) HTN (hypertension): Plan: Chronic. Elevated with pain, anxiety and agitation -Continue Amlodipine -Continue Metoprolol (5) Diabetes mellitus type 2, uncontrolled: Plan: Chronic -Lantus 15u BID with ISS -Goal blood sugar 100 - 140 -Continue Reglan -Continue Lyrica (6) PAD (peripheral artery disease): Plan: Chronic -Continue ASA - will change to daily -Continue Plavix Admission and Anticipated Discharge Date Admission Date: April 06, 2022 Subjective Patient reports feeling well, however, she reports more redness in her big toe. Review of Systems Review of Systems: All systems reviewed & are unremarkable except as noted in HPI & below Physical Exam Physical Exam: General: patient chronically ill in appearance, non-toxic, NAD Skin: warm, dry, left foot with mild warmth and redness present on dorsum of foot, shallow based ulcer present on right great toe and plantar surface of foot, with worsening redness om right toe, granulation tissue with some eschar, some purulence, no crepitus, no bullae HEENT: NC/AT, PERRL, EOMI, anicteric sclera, conjunctiva without injection, external ear normal to inspection and nontender, nares patent, moist mucus membranes, dentition intact, no oropharyngeal lesions, neck supple, trachea midline, no LAD, no thyromegaly, no JVD Heart: +S1/S2, regular, no m/r/g Lungs: equal air entry bilaterally, no rales/rhonchi/wheezes Abd: +BS, soft, NT/ND, no masses/organomegaly/ascites Ext: s/p right BKA, stump well healed, nontender, LLE as above Neuro: nonfocal, patient AA&O x 4, speech intact, no facial droop, moving all extremities on command with equal strength 5/5 Results & Data Results & Data ([facility]) Vital Signs (Past 12 Hours) Vital Signs Temp Pulse Resp BP Pulse Ox O2 Del Method 04/10/22 20:39 37.0 C 84 18 134/67 96 Room Air 04/10/22 16:57 36.8 C 75 16 156/84 H 99 Room Air PG Care Time/CCT Total # of Minutes Spent Total Time Spent with Patient: Total time spent is greater than 50% in coordination of care (as documented) at patient's floor/unit and/or counseling patient: Coding Level of Care Code 44507 Subseq Hosp Care Lvl 3 Diagnoses Cellulitis of left foot L03.116 Opioid dependence F11.20 Anxiety F41.9 HTN (hypertension) I10 Diabetes mellitus type 2, uncontrolled E11.65 PAD (peripheral artery disease) I73.9
[2022-04-10] MEDS: ZOLPIDEM TARTRATE 10 MG TAB PO PRN (22:08)
[2022-04-10] MEDS: CYCLOBENZAPRINE HCL 10 MG TAB PO PRN (22:08)
[2022-04-10] MEDS: rOPINIRole HCL 2 MG TABLET PO SCH (22:09)
[2022-04-11] MEDS: HYDROmorphone INJ 0.5 MG/0.5 ML SYR IV PRN ×5 (00:03→20:30)
[2022-04-11] MEDS: oxyCODONE/ACETAMINOPHEN 5mg/325mg TAB PO PRN ×2 (00:39→10:59)
[2022-04-11] MEDS: VANCOMYCIN HCL 1,250 MG in SODIUM CHLORIDE 0.9% 250 ML IV SCH ×3 (02:30→18:17)
[2022-04-11] MEDS: metroNIDAZOLE 500 MG/100 ML BAG IV SCH ×3 (04:05→20:30)
[2022-04-11 06:26] LABS: Hematocrit (blood only) 28.2 % (34.1-44.9); Hemoglobin 8.8 g/dl (12.0-16.0); Mean Corpuscular Hemoglobin 23.3 pg (25.0-34.0); Mean Corpuscular Hgb Conc 31.2 g/dL (32.0-36.0); Mean Corpuscular Volume 74.6 fL (80.0-100.0); Mean Platelet Volume 9.9 fL (9.4-12.3); Platelet Count 251 K/uL (130-400); RDW Standard Deviation 45.2 fL (36.4-46.3); Red Blood Count 3.78 M/uL (3.93-5.22); White Blood Count 9.35 K/ul (4.8-10.8)
[2022-04-11] MEDS: hydrOXYzine HCl 25 MG TAB PO PRN ×2 (06:46→15:16)
[2022-04-11 07:02] LABS: BUN Creatinine Ratio 23.8 (10-20); C Reactive Protein 1.05 mg/dl (0-0.5); Calcium 8.7 mg/dl (8.5-10.1); Creatinine Clr Calc Pharmacy 134.5 ml/min; Est GFR (African American) 131.9 ml/min; Est GFR (Non-African American) 113.8 ml/min; Potassium 3.8 mmol/L (3.5-5.1)
[2022-04-11] MEDS: ONDANSETRON INJ 2 MG/ML 2 ML VIAL IV PRN (07:22)
[2022-04-11] MEDS: ASPIRIN 81 MG ECTAB PO SCH (08:10)
[2022-04-11] MEDS: METOCLOPRAMIDE HCL 5 MG TABLET PO SCH ×3 (08:10→16:32)
[2022-04-11] MEDS: METOPROLOL SUCC 50MG EXT REL TAB PO SCH (08:10)
[2022-04-11] MEDS: amLODIPine BESYLATE 5 MG TAB PO SCH (08:10)
[2022-04-11] MEDS: CLOPIDOGREL BISULFATE 75 MG TAB PO SCH (08:10)
[2022-04-11] MEDS: DOCUSATE SODIUM 100 MG CAP PO SCH ×2 (08:11→20:00)
[2022-04-11] MEDS: SENNA 8.6 MG TAB PO SCH (08:11)
[2022-04-11] MEDS: LANTUS PER UNIT CHARGE SQ SCH ×2 (08:20→20:41)
[2022-04-11] MEDS: PREGABALIN 100 MG CAP PO SCH ×3 (08:20→20:29)
[2022-04-11] MEDS: INSULIN ASPART PER UNIT SC SCH ×4 (08:27→20:42)
[2022-04-11] MEDS: HYDROmorphone INJ 1 MG/ML SYRINGE IV PRN (12:06)
[2022-04-11] MEDS: cefTRIAXone SODIUM 2,000 MG in DEXTROSE 5% 50 ML IV SCH (12:33)
--- NOTE | 2022-04-11 15:39 | Orthopedic Progress Note ---
Date of Service April 11, 2022 Assessment & Plan (1) Cellulitis of left foot: Plan: Continue IV antibiotics for now. MRI without contrast not showing abscess or osteomyelitis. Will discuss toe changes with Dr. Montaño. Admission and Anticipated Discharge Date Admission Date: April 06, 2022 Subjective Pt sleeping upon arrival. Easily awoken. Continues with moderate pain in the Left great toe. States she bumped it yesterday aggravating the toe. No other complaints. Physical Exam Physical Exam: Dressing taken down. Great toe showing signs of demarcation at the distal portion. Under the nail appears to be maceration vs purulence? Mild erythema just distal to the nail bed. Plantar portion of the toe with erythema. The Plantar fore foot skin wounds continue to improve. Wounds redressed. Results & Data ([facility]) Vital Signs (Past 12 Hours) Vital Signs Temp Pulse Resp BP Pulse Ox O2 Del Method 04/11/22 14:39 37.2 C 72 16 148/74 H 99 Room Air 04/11/22 06:57 37 C 87 16 147/72 H 99 Room Air Diagnostic Findings Patient:EILEEN ESCOBAR Admit Date:04/06/22 MR#:[id number] Address1:[address] [place] [address] Acct ID:[id number] Address2: Date:1965 [facility] Zip:[place] [address] Age:56 Location:3E Sex:F Room/Bed:E3[facility] Att Phy:Ricardo Hernadez M.D. Diagnosis:LEFT FOOT PAIN Ana Maria Phy:Vince Vernon DO Service Date:04/10/22 Fam Phy: Interpreting Phy:Wilver Powell [facility] Phy:Snehal Arciniega D.O. Ordering Phy:Ricardo Hernadez M.D. cc: ~ MRI OF THE LEFT FOREFOOT WITHOUT CONTRAST CLINICAL HISTORY: Left diabetic foot infection. COMPARISON STUDY: MRI of the left forefoot March 19, 2022. Left foot radiographs April 04, 2022. TECHNIQUE: Utilizing a 1.5 Sariah magnet and dedicated coil, multiplanar, multi echo imaging of the left forefoot was performed without intravenous contrast. FINDINGS: Alignment of the left forefoot is anatomic. The tarsometatarsal joints are intact. No fracture within the left forefoot is noted. There is no MR evidence for acute osteomyelitis. There is slight increased marrow signal within the distal phalanx of the left first toe however T1 signal is preserved. Collection is identified to suggest an abscess. There is mild plantar subcutaneous edema of the left first toe. This is similar to previous MRI of March 19, 2022. No erosions are identified. No joint effusions are identified. Appearance of the left forefoot is similar to previous MRI. IMPRESSION: 1. No evidence for acute osteomyelitis within the left forefoot. 2. Mild subcutaneous plantar edema of the left first toe. This may reflect cellulitis. No fluid collection to suggest abscess. 3. No significant change since MRI of March 19, 2022.
--- NOTE | 2022-04-11 18:06 | Hospitalist Progress Note ---
Date of Service April 11, 2022 Assessment & Plan (1) Cellulitis of left foot: Plan: Nontoxic. Palpable pulses. Consulted ortho. continue antibiotics as stated below. -Vancomycin, patient with h/o MRSA infection -added ceftriaxone and flagyl on 04/10 WBC improved on 04/11 -Wound care -Tylenol, Percocet, DIlaudid PRN -Flexeril PRN -cultures growing diamante. MRI showed no osteomyelitis on 04/10 (2) Opioid dependence: Plan: Cautious use of opioids. Goal to control patient's pain with low doses of opioids (3) Anxiety: Plan: Chronic -Ativan TID PRN (4) HTN (hypertension): Plan: Chronic. Elevated with pain, anxiety and agitation -Continue Amlodipine -Continue Metoprolol (5) Diabetes mellitus type 2, uncontrolled: Plan: Chronic -Lantus 15u BID with ISS -Goal blood sugar 100 - 140 -Continue Reglan -Continue Lyrica (6) PAD (peripheral artery disease): Plan: Chronic -Continue ASA - will change to daily -Continue Plavix Admission and Anticipated Discharge Date Admission Date: April 06, 2022 Subjective 56 yo female reports no new symptoms. Review of Systems Review of Systems: All systems reviewed & are unremarkable except as noted in HPI & below Physical Exam Physical Exam: General: patient chronically ill in appearance, non-toxic, NAD Skin: warm, dry, left foot with decreased redness present on dorsum of foot, shallow based ulcer present on right great toe and plantar surface of foot, with decreased redness on right toe, granulation tissue with some eschar, no purulence, no crepitus, no bullae HEENT: NC/AT, PERRL, EOMI, anicteric sclera, conjunctiva without injection, external ear normal to inspection and nontender, nares patent, moist mucus membranes, dentition intact, no oropharyngeal lesions, neck supple, trachea midline, no LAD, no thyromegaly, no JVD Heart: +S1/S2, regular, no m/r/g Lungs: equal air entry bilaterally, no rales/rhonchi/wheezes Abd: +BS, soft, NT/ND, no masses/organomegaly/ascites Ext: s/p right BKA, stump well healed, nontender, LLE as above Neuro: nonfocal, patient AA&O x 4, speech intact, no facial droop, moving all extremities on command with equal strength 5/5 Results & Data Results & Data ([facility]) Vital Signs (Past 12 Hours) Vital Signs Temp Pulse Resp BP Pulse Ox O2 Del Method 04/11/22 14:39 37.2 C 72 16 148/74 H 99 Room Air 04/11/22 06:57 37 C 87 16 147/72 H 99 Room Air PG Care Time/CCT Total # of Minutes Spent Total Time Spent with Patient: Total time spent is greater than 50% in coordination of care (as documented) at patient's floor/unit and/or counseling patient: Coding Level of Care Code 92113 Subseq Hosp Care Lvl 2 Diagnoses Cellulitis of left foot L03.116 Opioid dependence F11.20 Anxiety F41.9 HTN (hypertension) I10 Diabetes mellitus type 2, uncontrolled E11.65 PAD (peripheral artery disease) I73.9
[2022-04-11] MEDS: rOPINIRole HCL 2 MG TABLET PO SCH (20:28)
[2022-04-11] MEDS: ZOLPIDEM TARTRATE 10 MG TAB PO PRN (20:29)
[2022-04-11] MEDS: CYCLOBENZAPRINE HCL 10 MG TAB PO PRN (20:29)
[2022-04-12] MEDS: hydrOXYzine HCl 25 MG TAB PO PRN ×3 (00:57→21:49)
[2022-04-12] MEDS: HYDROmorphone INJ 0.5 MG/0.5 ML SYR IV PRN ×6 (00:58→22:41)
[2022-04-12] MEDS: ONDANSETRON INJ 2 MG/ML 2 ML VIAL IV PRN ×2 (00:59→09:27)
[2022-04-12] MEDS: VANCOMYCIN HCL 1,250 MG in SODIUM CHLORIDE 0.9% 250 ML IV SCH ×3 (01:00→23:56)
[2022-04-12] MEDS: metroNIDAZOLE 500 MG/100 ML BAG IV SCH ×3 (04:32→21:47)
[2022-04-12 06:49] LABS: Hemoglobin 9.2 g/dl (12.0-16.0); Mean Corpuscular Hemoglobin 23.3 pg (25.0-34.0); Mean Corpuscular Hgb Conc 30.7 g/dL (32.0-36.0); Mean Corpuscular Volume 75.9 fL (80.0-100.0); Mean Platelet Volume 9.8 fL (9.4-12.3); Platelet Count 298 K/uL (130-400); RDW Coefficient of Variation 16.9 % (11.5-14.5); RDW Standard Deviation 46.4 fL (36.4-46.3); Red Blood Count 3.95 M/uL (3.93-5.22); White Blood Count 12.27 K/ul (4.8-10.8)
[2022-04-12 07:33] LABS: BUN Creatinine Ratio 24.4 (10-20); Calcium 8.9 mg/dl (8.5-10.1); Creatinine Clr Calc Pharmacy 125.6 ml/min; Est GFR (African American) 128.9 ml/min; Est GFR (Non-African American) 111.2 ml/min; Potassium 3.8 mmol/L (3.5-5.1)
[2022-04-12] MEDS: INSULIN ASPART PER UNIT SC SCH ×4 (09:00→21:47)
[2022-04-12] MEDS: LANTUS PER UNIT CHARGE SQ SCH ×2 (09:17→21:46)
[2022-04-12] MEDS: METOCLOPRAMIDE HCL 5 MG TABLET PO SCH ×3 (09:19→17:28)
[2022-04-12] MEDS: amLODIPine BESYLATE 5 MG TAB PO SCH (09:19)
[2022-04-12] MEDS: CLOPIDOGREL BISULFATE 75 MG TAB PO SCH (09:20)
[2022-04-12] MEDS: ASPIRIN 81 MG ECTAB PO SCH (09:20)
[2022-04-12] MEDS: METOPROLOL SUCC 50MG EXT REL TAB PO SCH (09:21)
[2022-04-12] MEDS: DOCUSATE SODIUM 100 MG CAP PO SCH ×2 (09:21→22:40)
[2022-04-12] MEDS: PREGABALIN 100 MG CAP PO SCH ×3 (09:22→21:49)
[2022-04-12] MEDS: SENNA 8.6 MG TAB PO SCH (09:22)
[2022-04-12] MEDS: CYCLOBENZAPRINE HCL 10 MG TAB PO PRN ×2 (09:22→21:49)
[2022-04-12] MEDS ORDERED: VANCOMYCIN LEVEL ONE (09:30)
[2022-04-12] MEDS ORDERED: HYDROmorphone INJ 1 MG/ML SYRINGE IV STA (12:18)
[2022-04-12] MEDS: cefTRIAXone SODIUM 2,000 MG in DEXTROSE 5% 50 ML IV SCH (12:32)
--- NOTE | 2022-04-12 14:04 | Pharmacy Report ---
Pharmacy PK ABX Note - Date of Service April 12, 2022 - Assessment and Plan Assessment 04/12: * Antibiotics broadened to vancomycin, ceftriaxone, and metronidazole on 04/10 due to worsening erythema and leukocytosis * If still no improvement with broadened antibiotics, would consider antifungal treatment to cover cultures 04/09: * Cx finalized growing diamante albicans and yeast not diamante albicans. Per provider will continue vanc at least through today. Patient afebrile. 04/08: * Vanc level today borderline low although likely pre-steady state. Will increase dose slightly today and repeat level tomorrow. Foot Culture still pending, blood culture no growth thus far. 04/07: 56 year old F receiving Vancomycin for treatment of LLE cellulitis. Patient has been on Vancomycin several times in the past for same issue. * PMHx significant for T2DM with multiple diabetic foot infections s/p R BKA. Was recently here from 03/08/22-03/16/22 then again from 03/19/22-04/03/22 for similar issues. Multiple recent abx. 03/11/22 LLE culture grew MRSA. Allergies to sulfa and Augmentin. 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 * Afebrile. ESR/CRP mildly elevated. LLE XR not suggestive of osteomyelitis. Renal fxn stable. Leukocytosis improved to 13k today. Blood and foot cultures pending. Plan Vancomycin * Current regimen: 1250 mg IV every 8 hours * Trough level obtained 04/12/22 resulted as 11.6 mcg/mL. This is predicted to achieve target AUC/CELSO of 400-600 mg/L.hr * Predicted AUC at steady state: 492 mg/L.hr * Continue 1250 mg IV every 8 hours * Will order repeat levels as appropriate Ceftriaxone * 2 g IV q24h - no change Metronidazole * 500 mg IV q8h - no change Pharmacy will continue to follow and will adjust dose/frequency as necessary. Thank you. Pharmacy has transitioned to AUC monitoring for vancomycin. AUC/CELSO is the preferred PK/PD target and is associated with decreased risk of nephrotoxicity compared to traditional trough targets.
[2022-04-12 14:54] LABS: Basophils # (auto) 0.07 K/uL (0-0.2); Basophils % (auto) 0.6 %; Eosinophils # (auto) 1.02 K/uL (0-0.50); Eosinophils % (auto) 8.3 %; Immature Granulocytes # (auto) 0.04 K/uL (0.00-0.02); Immature Granulocytes % (auto) 0.3 %; Lymphocytes # (auto) 2.49 K/uL (1.2-3.4); Lymphocytes % (auto) 20.3 %; Monocytes # (auto) 1.12 K/uL (0.24-0.82); Monocytes % (auto) 9.1 %; Neutrophils # (auto) 7.52 K/uL (1.4-6.5); Neutrophils % (auto) 61.4 %
--- NOTE | 2022-04-12 15:14 | Communication Note ---
Date of Service: April 12, [address] Montaño concerning Mrs. Witt's great toe. Plan for now is wound care and antibiotics. Continue to let the great toe demarcate or improve.
[2022-04-12] MEDS: ZOLPIDEM TARTRATE 10 MG TAB PO PRN (21:49)
[2022-04-12] MEDS: oxyCODONE/ACETAMINOPHEN 5mg/325mg TAB PO PRN (21:51)
[2022-04-12] MEDS: rOPINIRole HCL 2 MG TABLET PO SCH (21:51)
[2022-04-12] MEDS ORDERED: Nursing to Pharmacy Communication SCH (23:15)
--- NOTE | 2022-04-12 23:26 | Hospitalist Progress Note ---
Date of Service April 12, 2022 Assessment & Plan (1) Cellulitis of left foot: Plan: Nontoxic. Palpable pulses. Consulted ortho. continue antibiotics as stated below. -Vancomycin, patient with h/o MRSA infection -added ceftriaxone and flagyl on 04/10 WBC improved on 04/11 -Wound care -Tylenol, Percocet, DIlaudid PRN -Flexeril PRN -cultures growing diamante. MRI showed no osteomyelitis on 04/10 continue current antibiotics, patient is refusing vancomycin on 04/12 ESR decreased to 35 (2) Opioid dependence: Plan: Cautious use of opioids. Goal to control patient's pain with low doses of opioids (3) Anxiety: Plan: Chronic -Ativan TID PRN (4) HTN (hypertension): Plan: Chronic. Elevated with pain, anxiety and agitation -Continue Amlodipine -Continue Metoprolol (5) Diabetes mellitus type 2, uncontrolled: Plan: Chronic -Lantus 15u BID with ISS -Goal blood sugar 100 - 140 -Continue Reglan -Continue Lyrica (6) PAD (peripheral artery disease): Plan: Chronic -Continue ASA - will change to daily -Continue Plavix Admission and Anticipated Discharge Date Admission Date: April 06, 2022 Subjective Patient reports worsening pain in her toe. She is requesting more pain medicine. Review of Systems Review of Systems: All systems reviewed & are unremarkable except as noted in HPI & below Physical Exam Physical Exam: General: patient chronically ill in appearance, non-toxic, NAD Skin: lesion highlighted on 04/12, warm, dry, left foot with decreased redness present on dorsum of foot, shallow based ulcer present on right great toe and plantar surface of foot, with decreased redness on right toe, granulation tissue with some eschar, no purulence, no crepitus, no bullae HEENT: NC/AT, PERRL, EOMI, anicteric sclera, conjunctiva without injection, external ear normal to inspection and nontender, nares patent, moist mucus membranes, dentition intact, no oropharyngeal lesions, neck supple, trachea midline, no LAD, no thyromegaly, no JVD Heart: +S1/S2, regular, no m/r/g Lungs: equal air entry bilaterally, no rales/rhonchi/wheezes Abd: +BS, soft, NT/ND, no masses/organomegaly/ascites Ext: s/p right BKA, stump well healed, nontender, LLE as above Neuro: nonfocal, patient AA&O x 4, speech intact, no facial droop, moving all extremities on command with equal strength 5/5 Results & Data Results & Data ([facility]) Vital Signs (Past 12 Hours) Vital Signs Temp Pulse Resp BP BP Pulse Ox O2 Del Method 04/12/22 21:25 37.0 C 87 18 146/72 H 97 Room Air 04/12/22 14:25 37.1 C 77 18 154/75 H 97 Room Air PG Care Time/CCT Total # of Minutes Spent Total Time Spent with Patient: Total time spent is greater than 50% in coordination of care (as documented) at patient's floor/unit and/or counseling patient: Coding Level of Care Code 61215 Subseq Hosp Care Lvl 2 Diagnoses Cellulitis of left foot L03.116 Opioid dependence F11.20 Anxiety F41.9 HTN (hypertension) I10 Diabetes mellitus type 2, uncontrolled E11.65 PAD (peripheral artery disease) I73.9
[2022-04-13] MEDS: HYDROmorphone INJ 0.5 MG/0.5 ML SYR IV PRN ×6 (02:35→22:29)
[2022-04-13] MEDS: metroNIDAZOLE 500 MG/100 ML BAG IV SCH ×3 (04:57→21:33)
[2022-04-13] MEDS: oxyCODONE/ACETAMINOPHEN 5mg/325mg TAB PO PRN ×4 (05:01→20:51)
[2022-04-13] MEDS: hydrOXYzine HCl 25 MG TAB PO PRN ×2 (06:23→15:29)
[2022-04-13 06:28] LABS: Hematocrit (blood only) 26.8 % (34.1-44.9); Hemoglobin 8.5 g/dl (12.0-16.0); Mean Corpuscular Hemoglobin 23.7 pg (25.0-34.0); Mean Corpuscular Hgb Conc 31.7 g/dL (32.0-36.0); Mean Corpuscular Volume 74.7 fL (80.0-100.0); Mean Platelet Volume 9.8 fL (9.4-12.3); Platelet Count 273 K/uL (130-400); RDW Standard Deviation 45.9 fL (36.4-46.3); Red Blood Count 3.59 M/uL (3.93-5.22); White Blood Count 9.69 K/ul (4.8-10.8)
[2022-04-13 06:59] LABS: BUN Creatinine Ratio 30.6 (10-20); Calcium 8.5 mg/dl (8.5-10.1); Creatinine Clr Calc Pharmacy 115.3 ml/min; Est GFR (African American) 125.3 ml/min; Est GFR (Non-African American) 108.2 ml/min; Potassium 3.8 mmol/L (3.5-5.1)
[2022-04-13] MEDS: METOCLOPRAMIDE HCL 5 MG TABLET PO SCH ×3 (08:27→18:38)
[2022-04-13] MEDS: INSULIN ASPART PER UNIT SC SCH ×4 (08:51→21:32)
[2022-04-13] MEDS: VANCOMYCIN HCL 1,250 MG in SODIUM CHLORIDE 0.9% 250 ML IV SCH ×2 (08:52→19:34)
[2022-04-13] MEDS: PREGABALIN 100 MG CAP PO SCH ×3 (08:56→21:34)
[2022-04-13] MEDS: LANTUS PER UNIT CHARGE SQ SCH ×2 (08:56→21:32)
[2022-04-13] MEDS: amLODIPine BESYLATE 5 MG TAB PO SCH (08:57)
[2022-04-13] MEDS: ASPIRIN 81 MG ECTAB PO SCH (08:57)
[2022-04-13] MEDS: METOPROLOL SUCC 50MG EXT REL TAB PO SCH (08:58)
[2022-04-13] MEDS: DOCUSATE SODIUM 100 MG CAP PO SCH ×2 (08:58→20:52)
[2022-04-13] MEDS: CLOPIDOGREL BISULFATE 75 MG TAB PO SCH (08:58)
[2022-04-13] MEDS: SENNA 8.6 MG TAB PO SCH (08:59)
[2022-04-13] MEDS: cefTRIAXone SODIUM 2,000 MG in DEXTROSE 5% 50 ML IV SCH (13:36)
--- NOTE | 2022-04-13 17:07 | Orthopedic Progress Note ---
Date of Service April 13, 2022 Assessment & Plan (1) Cellulitis of left foot: Plan: Continue IV antibiotics for now. Dr. Montaño is here tomorrow doing surgeries. Plan to assess for possible surgical needs. Admission and Anticipated Discharge Date Admission Date: April 06, 2022 Subjective Patient awake and alert. No new complaints. Physical Exam Physical Exam: Dressing removed. She has not increased beefy red erythema of the great toe at this time compared to yesterday. She does not have any purulent drainage but the distal tip of the great toe continues to demarcate and is now a dark to black eschar. He continues to have what looks like purulence under the toenail. Again there is no purulence coming from under the nail at this time. She does feel that the she is getting an increase tenderness in the toe itself. Wound redressed. Results & Data ([facility]) Vital Signs (Past 12 Hours) Vital Signs Temp Pulse Resp BP Pulse Ox O2 Del Method 04/13/22 14:34 37 C 70 16 149/67 H 99 Room Air 04/13/22 07:26 37 C 83 16 118/64 96 Room Air
[2022-04-13] MEDS: ZOLPIDEM TARTRATE 10 MG TAB PO PRN (21:33)
[2022-04-13] MEDS: rOPINIRole HCL 2 MG TABLET PO SCH (21:34)
--- NOTE | 2022-04-13 21:43 | Hospitalist Progress Note ---
Date of Service April 13, 2022 Assessment & Plan (1) Cellulitis of left foot: Plan: Appreicate ortho assistance. may need surgical intervention tomorrow. Previous culture with MRSA thus remains on IV vancomycin. Remains on ceftriaxone and flagyl - started 04/10. Increase Dilaudid PRN to q3h dosoing. cultures growing diamante but this may represent contamination; defer on Rx for now since going to OR tomorrow. Of note - MRI showed no osteomyelitis on 04/10. I am uncertain why this infection is not clearing despite copious IV/PO abx and recent LLE PAD intervention by Dr Lin. Underlying immune system deficiency ? Check IgG in am. 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 Previous smoking (quit 1 year ago) likely contributed to microvascular disease. (2) Opioid dependence: Plan: Cont IV and PO pain meds for L great toe (3) Anxiety: Plan: Chronic Cont Ativan TID PRN (4) HTN (hypertension): Plan: Continue Amlodipine Continue Metoprolol (5) Diabetes mellitus type 2, uncontrolled: Plan: Cont basal-bolus regimen (6) PAD (peripheral artery disease): Plan: Chronic Continue ASA and plavix (7) Iron deficiency anemia: Plan: check fecal occult blood ferritin is 10 cannot tolerate IV venofer - see HPI will check with pharmacy about other IV preps check celiac panel in am due to Fe Def refractoriness to treatment Admission and Anticipated Discharge Date Admission Date: April 06, 2022 Subjective patient c/o ongoing L great toe pain may need surgery tomorrow for such started crying during the visit - "I'm so tired of all of this" (numerous surgeries, ongoing infection, etc) we discussed her Fe def - stool is "dark" - fecal occult is pending can't use IV venofer - she said her BP went to over 200 and she had difficulty breathing asks for adjustment in her Dilaudid IV no h/o celiac to her knowledge - "I've never heard of that" Review of Systems Review of Systems: gen - no fevers cv - no pain pulm - no dyspnea GI - no pain, no diarrhea, no blood in stool but stool is "dark" Physical Exam Physical Exam: gen - crying, otherwise NAD mouth - MMM heart - RRR, s1 s2 lungs - CTA b/l abd - soft NT ND BS+ ext - right BKA; stump clean, no drainage etc; left foot - pulses 2+; 2nd - 5th toes completely normal; great toe -- black eschar on undersurface; areas of macerated skin; erythematous; no odor; no drainage; toenail appears like it could fall off skin - no cellulitis of foot - just the L great toe Results & Data Results & Data ([facility]) Vital Signs (Past 12 Hours) Vital Signs Temp Pulse Resp BP Pulse Ox O2 Del Method 04/13/22 14:34 37 C 70 16 149/67 H 99 Room Air Laboratory Results Laboratory Results - last 24 hr 04/13/22 04/13/22 04/13/22 06:04 06:04 06:04 WBC 9.69 RBC 3.59 L Hgb 8.5 L Hct 26.8 L MCV 74.7 L MCH 23.7 L MCHC 31.7 L RDW Std Deviation 45.9 RDW Coeff of Maria Del Carmen 17.0 H Plt Count 273 MPV 9.8 ESR 27 Sodium 137 Potassium 3.8 Chloride 105 Carbon Dioxide 27 Anion Gap 5 BUN 15 Creatinine 0.49 L Est Cr Clr Drug Dosing 115.3 Est GFR ( Amer) 125.3 Est GFR (Non-Af Amer) 108.2 BUN/Creatinine Ratio 30.6 H Glucose 194 H POC Glucose Calcium 8.5 Iron TIBC Unsaturated IBC Transferrin % Sat Ferritin Stool Occult Bld Scrn 04/13/22 04/13/22 04/13/22 06:04 08:14 11:57 WBC RBC Hgb Hct MCV MCH MCHC RDW Std Deviation RDW Coeff of Maria Del Carmen Plt Count MPV ESR Sodium Potassium Chloride Carbon Dioxide Anion Gap BUN Creatinine Est Cr Clr Drug Dosing Est GFR ( Amer) Est GFR (Non-Af Amer) BUN/Creatinine Ratio Glucose POC Glucose 134 H 98 Calcium Iron 27 L TIBC 398 Unsaturated IBC 371 H Transferrin % Sat 7 L Ferritin 10.0 Stool Occult Bld Scrn 04/13/22 04/13/22 04/13/22 13:05 17:06 20:34 WBC RBC Hgb Hct MCV MCH MCHC RDW Std Deviation RDW Coeff of Maria Del Carmen Plt Count MPV ESR Sodium Potassium Chloride Carbon Dioxide Anion Gap BUN Creatinine Est Cr Clr Drug Dosing Est GFR ( Amer) Est GFR (Non-Af Amer) BUN/Creatinine Ratio Glucose POC Glucose 220 H 123 H Calcium Iron TIBC Unsaturated IBC Transferrin % Sat Ferritin Stool Occult Bld Scrn Cancelled Diagnostic Findings blood cx's neg wound cx L great toe - diamante -- albicans & non-albicans species PG Care Time/CCT Total # of Minutes Spent Total Time Spent with Patient: Total time spent is greater than 50% in coordination of care (as documented) at patient's floor/unit and/or counseling patient: Coding Level of Care Code 48745 Subseq Hosp Care Lvl 2 Diagnoses Cellulitis of left foot L03.116 Opioid dependence F11.20 Anxiety F41.9 HTN (hypertension) I10 Diabetes mellitus type 2, uncontrolled E11.65 PAD (peripheral artery disease) I73.9 Iron deficiency anemia D50.9
[2022-04-14] MEDS: VANCOMYCIN HCL 1,250 MG in SODIUM CHLORIDE 0.9% 250 ML IV SCH ×3 (00:35→17:50)
[2022-04-14] MEDS: HYDROmorphone INJ 0.5 MG/0.5 ML SYR IV PRN ×7 (01:48→22:17)
[2022-04-14] MEDS: metroNIDAZOLE 500 MG/100 ML BAG IV SCH ×3 (04:33→22:17)
[2022-04-14] MEDS: ONDANSETRON INJ 2 MG/ML 2 ML VIAL IV PRN ×2 (04:47→12:42)
[2022-04-14 06:03] LABS: Hematocrit (blood only) 29.8 % (34.1-44.9); Hemoglobin 9.1 g/dl (12.0-16.0); Mean Corpuscular Hemoglobin 23.1 pg (25.0-34.0); Mean Corpuscular Hgb Conc 30.5 g/dL (32.0-36.0); Mean Corpuscular Volume 75.6 fL (80.0-100.0); Platelet Count 315 K/uL (130-400); RDW Standard Deviation 46.2 fL (36.4-46.3); Red Blood Count 3.94 M/uL (3.93-5.22); White Blood Count 9.61 K/ul (4.8-10.8)
[2022-04-14 06:25] LABS: BUN Creatinine Ratio 19.6 (10-20); Calcium 8.7 mg/dl (8.5-10.1); Creatinine Clr Calc Pharmacy 122.8 ml/min; Est GFR (Non-African American) 110.4 ml/min; Immunoglobulin G 679.6 mg/dl (635-1741); Potassium 3.9 mmol/L (3.5-5.1)
[2022-04-14] MEDS: PREGABALIN 100 MG CAP PO SCH ×3 (07:51→22:19)
[2022-04-14] MEDS: METOCLOPRAMIDE HCL 5 MG TABLET PO SCH ×3 (07:52→18:45)
[2022-04-14] MEDS: hydrOXYzine HCl 25 MG TAB PO PRN ×2 (08:06→22:25)
[2022-04-14] MEDS: CYCLOBENZAPRINE HCL 10 MG TAB PO PRN (08:06)
[2022-04-14] MEDS: amLODIPine BESYLATE 5 MG TAB PO SCH (09:13)
[2022-04-14] MEDS: CLOPIDOGREL BISULFATE 75 MG TAB PO SCH (09:14)
[2022-04-14] MEDS: DOCUSATE SODIUM 100 MG CAP PO SCH ×2 (09:14→21:43)
[2022-04-14] MEDS: ASPIRIN 81 MG ECTAB PO SCH (09:14)
[2022-04-14] MEDS: LANTUS PER UNIT CHARGE SQ SCH ×2 (09:14→22:40)
[2022-04-14] MEDS: SENNA 8.6 MG TAB PO SCH ×2 (09:15→21:44)
[2022-04-14] MEDS: METOPROLOL SUCC 50MG EXT REL TAB PO SCH (09:15)
--- NOTE | 2022-04-14 09:41 | Pharmacy Report ---
Pharmacy PK ABX Note - Date of Service April 14, 2022 - Assessment and Plan Assessment 04/14: * Patient completed 7 days of Vancomycin, Dr Carvajal would like to extend duration, concern for MRSA in toe - continue Vancomycin at previous dosing schedule. 04/12: * Antibiotics broadened to vancomycin, ceftriaxone, and metronidazole on 04/10 due to worsening erythema and leukocytosis * If still no improvement with broadened antibiotics, would consider antifungal treatment to cover cultures 04/09: * Cx finalized growing diamante albicans and yeast not diamante albicans. Per provider will continue vanc at least through today. Patient afebrile. 04/08: * Vanc level today borderline low although likely pre-steady state. Will increase dose slightly today and repeat level tomorrow. Foot Culture still pending, blood culture no growth thus far. 04/07: 56 year old F receiving Vancomycin for treatment of LLE cellulitis. Patient has been on Vancomycin several times in the past for same issue. * PMHx significant for T2DM with multiple diabetic foot infections s/p R BKA. Was recently here from 03/08/22-03/16/22 then again from 03/19/22-04/03/22 for similar issues. Multiple recent abx. 03/11/22 LLE culture grew MRSA. Allergies to sulfa and Augmentin. 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 * Afebrile. ESR/CRP mildly elevated. LLE XR not suggestive of osteomyelitis. Renal fxn stable. Leukocytosis improved to 13k today. Blood and foot cultures pending. Plan Vancomycin * Current regimen: 1250 mg IV every 8 hours * Trough level obtained 04/12/22 resulted as 11.6 mcg/mL. This is predicted to achieve target AUC/CELSO of 400-600 mg/L.hr * Predicted AUC at steady state: 492 mg/L.hr * Continue 1250 mg IV every 8 hours * Will order repeat levels as appropriate Ceftriaxone * 2 g IV q24h - no change Metronidazole * 500 mg IV q8h - no change Pharmacy will continue to follow and will adjust dose/frequency as necessary. Thank you. Pharmacy has transitioned to AUC monitoring for vancomycin. AUC/CELSO is the preferred PK/PD target and is associated with decreased risk of nephrotoxicity compared to traditional trough targets.
[2022-04-14] MEDS: INSULIN ASPART PER UNIT SC SCH ×4 (11:03→22:40)
--- NOTE | 2022-04-14 11:31 | Anesthesiology Consultation ---
Date of Service April 14, 2022 Assessment & Plan Chart Review Chart Review: Acceptable Risk for Surgery and Patient NOT seen in Pre Admission Testing History Surgery Operation Date: 04/14/22 08:20 Proposed Procedures p Irrigation and Debridement Left Great Toe - Akhil Montaño DO Height/Weight Height: 5 ft 2 in Weight: 69 kg Allergies Allergy/AdvReac Type Severity Reaction Status Date / Time morphine Allergy Severe blisters Verified 04/06/22 21:38 in mouth Sulfa (Sulfonamide Allergy Severe rash/swelli Verified 04/06/22 21:38 Antibiotics) ng iron [From Venofer] Allergy Intermediate Hypertensio Verified 04/06/22 21:38 n vancomycin Allergy Intermediate YULIYA Verified 04/06/22 21:38 SYNDROME---CAN TAKE IF VERY SLOW DRIP. amoxicillin [From Augmentin] Allergy Mild itching/power Verified 04/06/22 21:38 h clavulanic acid Allergy Mild itching/power Verified 04/06/22 21:38 [From Augmentin] h dermabond AdvReac excoriates Uncoded 04/06/22 21:40 skin Medications Home Medications Medication Instructions Recorded Confirmed Last Taken ropinirole 2 mg tablet 4 mg PO HS 10/19/20 04/06/22 03/07/22 metoprolol succinate 50 mg 50 mg PO QAM 03/05/21 04/06/22 04/06/22 09:00 tablet,extended release 24 hr (Toprol XL) aspirin 81 mg tablet,delayed 81 mg PO BID #60 tabs 10/04/21 04/07/22 04/06/22 09:00 release (Melissa Low Dose Aspirin) lorazepam 1 mg tablet (Ativan) 1 mg PO TID PRN Anxiety 11/04/21 04/06/22 04/06/22 09:00 cyclobenzaprine 10 mg tablet 10 mg PO BID PRN Muscle Spasm 11/24/21 04/06/22 03/08/22 metoclopramide HCl 5 mg tablet 5 mg PO AC #90 tabs 12/26/21 04/06/22 04/06/22 09:00 oxycodone-acetaminophen 5 mg-325 2 tab PO Q4H PRN moderate to 12/26/21 04/06/22 04/06/22 13:00 mg tablet (Percocet) severe breakthrough pain #30 tabs insulin glargine 100 unit/mL (3 20 unit subcut HS 03/08/22 04/06/22 04/05/22 21:00 mL) subcutaneous pen (Lantus Solostar U-100 Insulin) insulin lispro 100 unit/mL 5 unit subcut TIDM 03/08/22 04/06/22 04/06/22 09:00 subcutaneous pen ondansetron 8 mg disintegrating 8 mg translingual TID PRN Nausea 03/08/22 04/06/22 Unknown tablet zolpidem 10 mg tablet 10 mg PO HS PRN Sleep 03/08/22 04/06/22 Unknown amlodipine 5 mg tablet (Norvasc) 5 mg PO QAM 30 days #30 tabs 03/16/22 04/06/22 04/06/22 09:00 clopidogrel 75 mg tablet 75 mg PO QAM #30 tabs 03/30/22 04/06/22 04/06/22 09:00 pregabalin 100 mg capsule (Lyrica) 100 mg PO TID 30 days #90 caps 03/30/22 04/06/22 04/06/22 doxycycline hyclate 100 mg capsule 100 mg PO BID #3 caps 04/03/22 04/06/22 04/06/22 09:00 Active Medications Generic Name Dose Route Start Last Admin Trade Name John PRN Reason Stop Dose Admin Amlodipine Besylate 5 mg 04/07/22 09:00 04/14/22 09:13 Amlodipine Besylate 5 Mg Tab PO 05/07/22 08:59 5 mg QAM RICKY Administration Aspirin 81 mg 04/07/22 09:00 04/14/22 09:14 Aspirin 81 Mg Ectab PO 05/07/22 08:59 81 mg DAILY RICKY Administration Clopidogrel Bisulfate 75 mg 04/07/22 09:00 04/14/22 09:14 Clopidogrel Bisulfate 75 Mg Tab PO 05/07/22 08:59 75 mg QAM RICKY Administration Cyclobenzaprine HCl 10 mg 04/07/22 01:01 04/14/22 08:06 Cyclobenzaprine Hcl 10 Mg Tab PO 05/07/22 01:00 10 mg BID PRN Administration Muscle Spasm Docusate Sodium 100 mg 04/07/22 09:00 04/14/22 09:14 Docusate Sodium 100 Mg Cap PO 05/07/22 08:59 Not Given BID RICKY Hydromorphone HCl 1 mg 04/13/22 18:25 04/14/22 10:57 Hydromorphone Inj 0.5 Mg/0.5 Ml Syr IV 04/22/22 19:08 1 mg Q3H PRN Administration Severe Pain Hydroxyzine HCl 25 mg 04/10/22 13:38 04/14/22 08:06 Hydroxyzine Hcl 25 Mg Tab PO 05/10/22 13:37 25 mg Q6H PRN Administration Anxiety Ceftriaxone Sodium 2,000 mg/ 70 mls @ 100 mls/hr 04/10/22 12:30 04/13/22 14:39 Dextrose IV 04/17/22 12:29 Infused DAILY@1200 RICKY Infusion Protocol Metronidazole 500 mg in 100 mls @ 100 mls/hr 04/10/22 12:30 04/14/22 05:49 Flagyl IV 04/17/22 12:29 Infused Q8H RICKY Infusion Protocol Vancomycin HCl 1,250 mg/ 275 mls @ 200 mls/hr 04/14/22 10:00 04/14/22 10:47 Sodium Chloride IV 04/21/22 09:59 200 mls/hr Q8H RICKY Administration Insulin Glargine 15 units 04/07/22 09:00 04/14/22 09:14 Lantus Per Unit Charge SQ 05/07/22 08:59 15 units BID RICKY Administration Lorazepam 1 mg 04/07/22 01:01 04/10/22 04:52 Lorazepam 1 Mg Tab PO 05/07/22 01:00 1 mg TID PRN Administration Anxiety Metoclopramide HCl 5 mg 04/07/22 07:30 04/14/22 07:52 Metoclopramide Hcl 5 Mg Tablet PO 05/07/22 07:29 5 mg AC RICKY Administration Metoprolol Succinate 50 mg 04/07/22 09:00 04/14/22 09:15 Metoprolol Succ 50mg Ext Rel Tab PO 05/07/22 08:59 50 mg QAM RICKY Administration Ondansetron HCl 4 mg 04/07/22 01:01 04/14/22 04:47 Ondansetron Inj 2 Mg/Ml 2 Ml Vial IV 05/07/22 01:00 4 mg Q6H PRN Administration Nausea And Vomiting Oxycodone/Acetaminophen 2 tab 04/07/22 01:01 04/13/22 20:51 Oxycodone/Acetaminophen 5mg/325mg Tab PO 04/21/22 01:00 2 tab Q4H PRN Administration moderate to severe breakthrough pain Pregabalin 100 mg 04/07/22 09:00 04/14/22 07:51 Pregabalin 100 Mg Cap PO 05/07/22 08:59 100 mg TID RICKY Administration Ropinirole HCl 4 mg 04/07/22 21:00 04/13/22 21:34 Ropinirole Hcl 2 Mg Tablet PO 05/07/22 20:59 4 mg HS RICKY Administration Sennosides 17.2 mg 04/07/22 09:00 04/14/22 09:15 Senna 8.6 Mg Tab PO 05/07/22 08:59 Not Given QAM RICKY Zolpidem Tartrate 10 mg 04/07/22 01:01 04/13/22 21:33 Zolpidem Tartrate 10 Mg Tab PO 05/07/22 01:00 10 mg HS PRN Administration Sleep Past Medical History Medical History Acidosis, lactic Acute dehydration 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 No issues per anesthesia postop progress note. Anemia Cellulitis Chronic back pain Depression Diabetic peripheral neuropathy DM2 (diabetes mellitus, type 2) IDDM, A1c 07/2021-11% Gastritis Gastroenteritis GIB (gastrointestinal bleeding) History of amputation of great toe Hyperlipidemia Insulin dependent diabetes mellitus Iron deficiency anemia Nonobstructive atherosclerosis of coronary artery Numbness of lower extremity Opiate abuse, continuous Opiate dependence Peripheral neuropathy Right second toe ulcer Seizures Sepsis Past Family History Family History Mother , age 63 Myocardial infarction Father , age 68 or 69 Myocardial infarction Brother S/P CABG (coronary artery bypass graft) Sister Myocardial infarction x 3; she is 57yo Past Surgical History Surgical History History of cardiac cath done at [facility]; 09/22/19; LM - mild luminal irregularities. LAD - mid 20-30%, distal with myocardial bridge & 30% stenosis. L Cx - mild luminal irregularities. RCA - proximal <30% stenosis; mid/distal vessel mild plaques. PDA - mild luminal irregularities. History of esophagogastroduodenoscopy (EGD) History of right below knee amputation (12/22/21) Right Below Knee Amputation(Right) - Davon Good MD, FACS Social History Smoking Status: Current every day smoker tobacco type: cigarettes Smoking cigarettes per day: 20 Hx Alcohol Use: No Hx Substance Use: Yes substance use type: marijuana Substance Use Type Other:: medical marijuana Last Used Substance: Days (ago) Last Used Substance Other:: 2 days ago Physical Exam Vital Signs Last Vital Signs Temp 36.8 C 04/14/22 07:43 Pulse 108 H 04/14/22 07:43 Resp 18 04/14/22 07:43 BP 174/75 H 04/14/22 07:43 Pulse Ox 98 04/14/22 07:43 O2 Del Method 04/14/22 07:43 Testing Laboratory Results 04/14/22 05:44 04/14/22 05:44 04/06/22 20:44 Aerobic Blood Culture - Final Blood No growth in Aerobic bottle after 5 days. Anaerobic Blood Culture - Final No growth in Anaerobic bottle after 5 days. 04/06/22 18:36 Aerobic Blood Culture - Final Blood No growth in Aerobic bottle after 5 days. Anaerobic Blood Culture - Final No growth in Anaerobic bottle after 5 days. 04/07/22 Unknown Gram Stain - Final Foot,Left Wound Culture - Final Dorota albicans/dubliniensis Yeast not Dorota albicans/dub 04/14/22 08:10 POC Glucose 131 H
[2022-04-14] MEDS: oxyCODONE/ACETAMINOPHEN 5mg/325mg TAB PO PRN (12:37)
[2022-04-14] MEDS: cefTRIAXone SODIUM 2,000 MG in DEXTROSE 5% 50 ML IV SCH (12:48)
[2022-04-14] MEDS ORDERED: D5NSS + 20MEQ KCL 20 MEQ/1,000 ML BAG IV SCH (15:45)
--- NOTE | 2022-04-14 18:11 | History & Physical Bridge Note ---
Date of Service April 14, 2022 History & Physical Bridge Note I have examined the patient, reviewed the History & Physical and in the interval since the performance of the History & Physical I have noted the following changes of clinical significance: Will require left great toe incision and drainage of subungual abscess and debridement of ulcer of the great toe.
[2022-04-14] MEDS ORDERED: ePHEDrine sulfate 50 MG/ML AMP IV PRN (18:31)
[2022-04-14] MEDS ORDERED: fentaNYL citrate 100 MCG/2 ML VIAL IV PRN (18:31)
[2022-04-14] MEDS ORDERED: ATROPINE SULFATE 0.1 MG/ML 10ML SYR IV PRN (18:31)
[2022-04-14] MEDS ORDERED: ONDANSETRON INJ 2 MG/ML 2 ML VIAL IV PRN ×2 (18:31→21:32)
[2022-04-14] MEDS ORDERED: PROPOFOL IV EMULSION 10 MG/ML 20 ML VIAL IV ONE (18:39)
[2022-04-14] MEDS ORDERED: LIDOCAINE 2% 20 MG/ML 5 ML SYR IV ONE (18:39)
[2022-04-14] MEDS ORDERED: MIDAZOLAM HCL 1 MG/ML 2ML VIAL ONE (18:39)
[2022-04-14] MEDS ORDERED: fentaNYL citrate 100 MCG/2 ML VIAL ONE ×2 (18:39→20:55)
[2022-04-14] MEDS ORDERED: ceFAZolin 330 MG/ML 1 GM VIAL ONE (19:46)
[2022-04-14] MEDS ORDERED: BUPIVACAINE 0.5 % 5 MG/1 ML MPF 30ML VIAL ONE (19:46)
--- NOTE | 2022-04-14 20:31 | Hospitalist Progress Note ---
Date of Service April 14, 2022 Assessment & Plan (1) Cellulitis of left foot: Plan: Left great toe. Previous culture with MRSA thus remains on IV vancomycin. Remains on ceftriaxone and flagyl - started 04/10. Cont on Dilaudid PRN pain. Most recent cultures grew diamante but this may represent contamination; defer on Rx for now since going to OR today and will have intra-op cultures. Of note - MRI showed no osteomyelitis on 04/10. I am uncertain why this infection is not clearing despite copious IV/PO abx and recent LLE PAD intervention by Dr Lin. Underlying immune system deficiency ? Checked IgG and this returned normal. Previous IgM and IgA levels were wnl. 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 Likely heavy contributor. Previous smoking (quit 1 year ago) likely contributed to microvascular disease as well. To OR today for debridement, etc by Dr Montaño. (2) Opioid dependence: Plan: Cont IV and PO pain meds for L great toe May need adjustment post-op due to anticipated increase in pain (3) Anxiety: Plan: Chronic Cont Ativan TID PRN (4) HTN (hypertension): Plan: Continue Amlodipine Continue Metoprolol (5) Diabetes mellitus type 2, uncontrolled: Plan: Cont basal-bolus regimen BSGs controlled at this time (6) PAD (peripheral artery disease): Plan: Chronic Continue ASA and plavix (7) Iron deficiency anemia: Plan: fecal occult blood test negative ferritin is 10 cannot tolerate IV venofer - dyspnea, BPs ariadna to >200 systolic spoke with pharmacy - Injectafer ordered for her; dose will be 750mg IV x 1 to start should be available by Sunday of this coming week check celiac panel to be complete as refractoriness to treatment can be sign of celiac disease Admission and Anticipated Discharge Date Admission Date: April 06, 2022 Subjective saw Ms Witt prior to her going for her L great toe surgery she expressed anxiety her BSG had dropped to the 80s making her feel shaky Dextrose-containing fluids were started before heading down to the OR no new issues overnight left foot pain continues to be a problem she asks about the immune testing (IgG level), etc Review of Systems Review of Systems: gen - no fevers cv - no orthopnea/pain pulm - no cough or dyspnea GI - no diarrhea Physical Exam Physical Exam: gen - anxious but NAD otherwise mouth - MMM neck - no JVD heart - RRR, s1 s2, no murmur lungs - CTA b/l abd - soft NT ND BS+ ext - right BKA; stump wnl; left foot - pulses 2+; left foot wrapped in dressings - I did not remove them Results & Data Results & Data ([facility]) Vital Signs (Past 12 Hours) Vital Signs Temp Pulse Resp BP Pulse Ox O2 Del Method 04/14/22 18:43 71 16 122/70 98 Room Air 04/14/22 17:21 36.9 C 71 16 139/63 100 Room Air 04/14/22 15:01 36.9 C 70 16 102/57 L 96 Room Air Laboratory Results Laboratory Results - last 24 hr 04/13/22 04/13/22 04/14/22 19:45 20:34 05:44 WBC 9.61 RBC 3.94 Hgb 9.1 L Hct 29.8 L MCV 75.6 L MCH 23.1 L MCHC 30.5 L RDW Std Deviation 46.2 RDW Coeff of Maria Del Carmen 17.0 H Plt Count 315 MPV 10.0 Sodium Potassium Chloride Carbon Dioxide Anion Gap BUN Creatinine Est Cr Clr Drug Dosing Est GFR ( Amer) Est GFR (Non-Af Amer) BUN/Creatinine Ratio Glucose POC Glucose 123 H Calcium Stool Occult Bld Scrn Negative IgG IgA Tiss Transglutamin IgA Celiac Disease Interp 04/14/22 04/14/22 04/14/22 05:44 05:44 06:10 WBC RBC Hgb Hct MCV MCH MCHC RDW Std Deviation RDW Coeff of Maria Del Carmen Plt Count MPV Sodium 137 Potassium 3.9 Chloride 105 Carbon Dioxide 26 Anion Gap 6 BUN 9 Creatinine 0.46 L Est Cr Clr Drug Dosing 122.8 Est GFR ( Amer) 128.0 Est GFR (Non-Af Amer) 110.4 BUN/Creatinine Ratio 19.6 Glucose 136 H POC Glucose Calcium 8.7 Stool Occult Bld Scrn Negative IgG 679.6 IgA Pending Tiss Transglutamin IgA Pending Celiac Disease Interp Pending 04/14/22 04/14/22 04/14/22 08:10 11:42 15:15 WBC RBC Hgb Hct MCV MCH MCHC RDW Std Deviation RDW Coeff of Maria Del Carmen Plt Count MPV Sodium Potassium Chloride Carbon Dioxide Anion Gap BUN Creatinine Est Cr Clr Drug Dosing Est GFR ( Amer) Est GFR (Non-Af Amer) BUN/Creatinine Ratio Glucose POC Glucose 131 H 109 H 85 Calcium Stool Occult Bld Scrn IgG IgA Tiss Transglutamin IgA Celiac Disease Interp 04/14/22 04/14/22 17:19 18:17 WBC RBC Hgb Hct MCV MCH MCHC RDW Std Deviation RDW Coeff of Maria Del Carmen Plt Count MPV Sodium Potassium Chloride Carbon Dioxide Anion Gap BUN Creatinine Est Cr Clr Drug Dosing Est GFR ( Amer) Est GFR (Non-Af Amer) BUN/Creatinine Ratio Glucose POC Glucose 79 115 H Calcium Stool Occult Bld Scrn IgG IgA Tiss Transglutamin IgA Celiac Disease Interp PG Care Time/CCT Total # of Minutes Spent Total Time Spent with Patient: Total time spent is greater than 50% in coordination of care (as documented) at patient's floor/unit and/or counseling patient: Coding Level of Care Code 97140 Subseq Hosp Care Lvl 2 Diagnoses Cellulitis of left foot L03.116 Opioid dependence F11.20 Anxiety F41.9 HTN (hypertension) I10 Diabetes mellitus type 2, uncontrolled E11.65 PAD (peripheral artery disease) I73.9 Iron deficiency anemia D50.9
--- NOTE | 2022-04-14 20:34 | Post Operative Brief Note ---
Immediate Post Op Note v1 Date of Surgery April 14, 2022 Pre & Post Diagnosis Operation Date: 04/14/22 08:20 Pre-Op Diagnosis: Left foot great toe subungual abscess, left great toe ulcer 3.0 x 2.0 x 0.3 cm Post-Op Diagnosis: Left foot great toe subungual abscess, left great toe ulcer 3.0 x 2.0 x 0.3 cm I identified the patient and participated in the time-out.: Yes Procedure Operation Date: 04/14/22 08:20 Actual Procedures p Left Foot, Great Toe Subungual Abscess Incision and Drainage, removal nail plate with matrixectomy, debridement great toe ulcer 3.0 x 2.0 x 0.3cm including skin, dermis and subcutaneous tissue (Left) - Akhil Montaño DO Surgeon Akhil Montaño DO Head Sugar Reprocess Operator Dami Rodriguez PA-C Estimated Blood Loss 1 Findings Consistent with Post-Op Diagnosis Specimens Aerobic, anaerobic, gram stain deep medial great toe/distal phalanx Anesthesia Type General Regional Complications none Disposition Accompanied Patient To Recovery: No
[2022-04-14] MEDS ORDERED: ONDANSETRON INJ 2 MG/ML 2 ML VIAL ONE (20:52)
--- NOTE | 2022-04-14 21:07 | Anesthesiology Progress Note ---
Date of Service April 14, 2022 Anesthesia Post Procedure Vital Signs Vital Signs: Temp Pulse Pulse Pulse Resp BP Pulse Ox 04/14/22 20:55 76 12 127/75 98 04/14/22 20:45 72 18 123/65 100 04/14/22 20:38 96.8 F L 75 12 110/60 99 04/14/22 18:43 71 16 122/70 98 04/14/22 17:21 98.4 F 71 16 139/63 100 04/14/22 15:01 98.4 F 70 16 102/57 L 96 04/14/22 07:43 98.2 F 108 H 18 174/75 H 98 04/13/22 23:43 97.9 F 79 16 110/64 99 O2 Del Method O2 Flow Rate 04/14/22 20:55 Oxymask 2 04/14/22 20:45 Oxymask 6 04/14/22 20:38 Oxymask 6 04/14/22 18:43 Room Air 04/14/22 17:21 Room Air 04/14/22 15:01 Room Air 04/14/22 07:43 Room Air 04/13/22 23:43 Room Air Pain Intensity Left Foot: Pain Intensity: 7 Transfer of Care Handoff Completed per policy Notes Mental Status: alert / awake / arousable and participated in evaluation Patient Amnestic to Procedure: Yes Nausea / Vomiting: adequately controlled Pain: adequately controlled Airway Patency, RR, SpO2: stable & adequate BP & HR: stable & adequate Hydration State: stable & adequate Anesthetic Complications: no major complications apparent and Pt Satisfied with anesthetic care
[2022-04-14] MEDS ORDERED: METOCLOPRAMIDE HCL INJ 5 MG/ML 2 ML VIAL IV PRN (21:32)
[2022-04-14] MEDS ORDERED: NALOXONE HCL 0.4 MG/1 ML VIAL/CARP IV PRN (21:32)
[2022-04-14] MEDS ORDERED: MAGNESIUM HYDROXIDE SUSP 30 ML UDC PO PRN (21:32)
[2022-04-14] MEDS ORDERED: SODIUM CHLORIDE 0.9% 1000ML 1,000 ML IV SCH (21:32)
[2022-04-14] MEDS ORDERED: bisacodyL 10 MG SUPP PR PRN (21:32)
[2022-04-14] MEDS ORDERED: DOCUSATE SODIUM 100 MG CAP PO SCH (21:32)
[2022-04-14] MEDS: rOPINIRole HCL 2 MG TABLET PO SCH (22:19)
[2022-04-14] MEDS: ZOLPIDEM TARTRATE 10 MG TAB PO PRN (22:25)
--- NOTE | 2022-04-15 00:52 | Operative Report (OR) ---
DATE OF PROCEDURE: 04/14/2022 PREOPERATIVE DIAGNOSES: 1. Left great toe subungual abscess. 2. Left great toe ulcer 3.0 cm x 2.0 cm x 0.3 cm. POSTOPERATIVE DIAGNOSES: 1. Left great toe subungual abscess. 2. Left great toe ulcer 3.0 cm x 2.0 cm x 0.3 cm. PROCEDURES: 1. Left foot great toe subungual abscess incision and drainage. 2. Removal of nail plate with matrixectomy, great toe. 3. Debridement of great toe ulcer 3.0 cm x 2.0 cm x 0.3 cm including skin, dermis, and subcutaneous tissue. SURGEON: Akhil Montaño DO. MOTOR ANALYST: Dami Rodriguez PA-C who was present for patient positioning, sterile prep and drape, kami montez of retractors and instruments. He was present through the critical portions of the case inclu ding wound closure, application of sterile dressing and transport of the patient to recovery. ANESTHESIA: General, regional. SPECIMENS: Aerobic, anaerobic, Gram stain -- deep medial great toe/distal phalanx. DRAINS: None. COMPLICATIONS: None. BLOOD LOSS: 1 mL. PERTINENT HISTORY: This is a 56-year-old female well known to the orthopedic service, who presented with a new ulceration, pain and swelling of the left great toe. She was admitted to the hospitalist service. She was begun on IV antibiotics, monitored and given supportive care. She had advanced angel ging that did not show any evidence of osteomyelitis or abscess; however, her condition continued to worsen and then based on clinical examination, noted to have a subungual abscess as well as a large u lcer on the plantar distal aspect of the left great toe. The patient was scheduled for surgery as in dicated. All potential risks, benefits, complications, alternatives, rehab potential for incomplete relief of symptoms, need for further surgery, DVT, PE, , persistent pain, swelling, scarring, weakness, ne urovascular injury, wound complications, need for further surgery or possibly amputation were discuss ed with the patient. The patient decided to proceed with the procedure as indicated. DESCRIPTION OF PROCEDURE: The patient was taken to the operative suite and placed supine on the oper ating table. After review of consent and identification of proper site, the patient was anesthetized , LMA was placed. Left lower extremity was then sterilely prepped and draped in the usual fashion, e levated and partially exsanguinated from the hindfoot proximally using Esmarch bandage, which was the n applied over sterile surgical towel at the level of the ankle for a tourniquet. Next, after surgical timeout was performed, a felon incision was made in the mid lateral line of the medial aspect of the left great toe, decompressing all the septations within the great toe. Scant am ount of fluid was noted. No significant bleeding. Electrocautery was used judiciously to maintain h emostasis. A deep culture along the medial side to the level of the distal phalanx bone was obtained for aerobic, anaerobic, Gram stain analysis. This was passed off as specimen. Next, a hemostat was used to unroof the nail plate from the left great toe and this was performed atr aumatically with the tips up to avoid any lasting damage to the nail matrix. Next, the nail fold was then visualized and then the nail plate was then carefully removed and excised. Matrixectomy was th en performed with scissors and forceps. This was then followed by sharp debridement of the left grea t toe ulcer, which measured 3.0 cm x 2.0 cm x 0.3 cm. Debridement was performed sharply with a 15 bl vimal scalpel including excision of necrotic skin, dermis and then debridement to the level of the subc utaneous tissue was performed. After all eschar debris, slough and necrotic tissue was excised from the ulceration leaving healthy-appearing subcutaneous tissue, the great toe was then irrigated with a pproximately a liter of fluid with Ancef additive until clear. Next, top gloves and top sheet were changed. Three simple sutures were applied to the medial incisio n for loose drainage of the great toe with nylon sutures. Next, the great toe was injected with a di gital block with 0.5% Marcaine plain, approximately 12 mL. Next, a sterile compressive dressing was applied. The tourniquet was released. The patient was awakened and taken to recovery in stable cond ition. Job ID: [id number]
[2022-04-15] MEDS: VANCOMYCIN HCL 1,250 MG in SODIUM CHLORIDE 0.9% 250 ML IV SCH ×3 (01:24→18:01)
[2022-04-15] MEDS: metroNIDAZOLE 500 MG/100 ML BAG IV SCH ×3 (04:18→19:59)
[2022-04-15] MEDS: ONDANSETRON INJ 2 MG/ML 2 ML VIAL IV PRN (04:22)
[2022-04-15] MEDS: HYDROmorphone INJ 0.5 MG/0.5 ML SYR IV PRN ×6 (04:24→23:05)
--- NOTE | 2022-04-15 06:13 | Communication Note ---
Date of Service: April 15, 2022 Patient is requesting additional pain medication (Dilaudid 1mg, last dose was 1.5 hours ago) for breakthrough pain: declined request at this time. Akosua p sadia to assess pain. Currently has Dilaudid 1mg q3h prn and Fairhope 2 tabs q4h prn. Patient states the Fairhope does not work for her and is only using the Dilaudid.
--- NOTE | 2022-04-15 06:33 | Orthopedic Progress Note ---
Date of Service April 15, 2022 Assessment & Plan (1) Cellulitis of left foot: Plan: POD #1 s/p Left foot great toe subungual abscess incision and drainage with removal of nail plate with matrixectomy, great toe. debridement of great toe ulcer -Discussed with patient that she can be heel weightbearing on her left side using the postop shoe -We will leave dressing in place until tomorrow morning, will provide dressing change at that time -She is currently on vancomycin and will continue with this pending intraoperative cultures Admission and Anticipated Discharge Date Admission Date: April 06, 2022 Supervising Physician Co-Signing Physician Notes Patient seen and examined. Agree with CHAVEZ Rodriguez's note as above. She is tearful upon entering the room. She seems very upset that she underwent surgery. She states that she wished she would have never had this surgery to clear out her toe infection. She is demanding more frequent Dilaudid dosing than what she is currently scheduled, and is threatening to leave AMA if she does not get Dilaudid more frequently. Current pain medication orders reviewed. She currently has Percocet 10/650 every 4 hours, Dilaudid 1.5 mg every 3 hours, Tylenol 650 mg every 4 hours, Ativan 1 mg 3 times a day, Flexeril 10 mg twice a day, Lyrica 100 mg 3 times a day. Given the scope of this surgery with just an I&D of her great toe, her pain medication/narcotic requirement is well out of proportion to what would be expected to be needed for this surgery, and seems consistent with narcotic seeking behavior. I advised her that I will not increase her narcotics dosing given the large amount of pain medication she is already receiving. For her infection, she is currently receiving ceftriaxone, vancomycin, and Flagyl. Intraoperative Gram stain showed no organisms, and culture is currently pending. Subjective POD #1 s/p Left foot great toe subungual abscess incision and drainage with removal of nail plate with matrixectomy, great toe. debridement of great toe ulcer Review of Systems Constitutional: no fever and no chills Respiratory: no cough and no dyspnea Cardiovascular: no chest pain, no dyspnea and no orthopnea Gastrointestinal: no abdominal pain, no nausea and no vomiting Physical Exam Physical Exam: Vital Signs Temp Pulse Pulse Pulse Resp BP Pulse Ox 04/15/22 03:54 36.5 C 86 14 132/56 L 96 04/14/22 21:40 04/15/22 00:02 36.6 C 82 14 111/62 93 04/14/22 23:04 36.5 C 86 14 176/82 H 98 04/14/22 22:44 36.7 C 80 18 177/76 H 99 04/14/22 21:40 36.7 C 74 14 150/73 H 97 04/14/22 20:55 76 12 127/75 98 04/14/22 20:45 72 18 123/65 100 04/14/22 21:05 36.7 C 74 16 135/70 97 04/14/22 20:38 36.0 C L 75 12 110/60 99 04/14/22 18:43 71 16 122/70 98 04/14/22 17:21 36.9 C 71 16 139/63 100 04/14/22 15:01 36.9 C 70 16 102/57 L 96 04/14/22 07:43 36.8 C 108 H 18 174/75 H 98 O2 Del Method O2 Flow Rate 04/15/22 03:54 Room Air 04/14/22 21:40 Room Air 04/15/22 00:02 Room Air 04/14/22 23:04 Room Air 04/14/22 22:44 Room Air 04/14/22 21:40 Room Air 04/14/22 20:55 Oxymask 2 04/14/22 20:45 Oxymask 6 04/14/22 21:05 Room Air 04/14/22 20:38 Oxymask 6 04/14/22 18:43 Room Air 04/14/22 17:21 Room Air 04/14/22 15:01 Room Air 04/14/22 07:43 Room Air Intake and Output 04/14/22 04/14/22 04/15/22 14:59 22:59 06:59 Intake Total 445 / 4245 2075 / 4245 1725 / 4245 Output Total Balance 445 / 4244 2074 / 4244 1725 / 4244 Intake: IV 445 / 3195 1275 / 3195 1475 / 3195 D5nss + 20Meq KCl 20 meq In 1, 1000 / 1000 000 ml @ 100 m ls/hr IV .Q10H [facility] Rx#:[id number] Sodium Chlorid e 0.9% 1000ML 1, 1000 / 1000 000 ml @ 100 m ls/hr IV .Q10H [facility] Rx#:[id number] Vancomycin HCl 1,250 mg In 275 / 825 275 / 825 275 / 825 Sodium Chlorid e 0.9% 250 ml @ 200 mls/hr IV Q8H [facility] Rx#: [id number] cefTRIAXone SO DIUM 2,000 mg In 70 / 70 Dextrose 5% 50 ml @ 100 mls/hr IV DAILY@1200 [facility] Rx#:[id number] metroNIDAZOLE 500 mg In 100 ml 100 / 300 200 / 300 @ 100 mls/hr I V Q8H [facility] Rx#: [id number] IV Perioperative 450 / 450 Oral 350 / 600 250 / 600 Output: Estimated Blood Loss Other: # Unmeasured Voi ds 3 1 Weight 69 kg Patient Weight 04/15/22 06:59 Weight 69 kg Musculoskeletal: left foot: Soft dressing is intact to the left foot. There is some mild bloody drainage noted around the great toe. She is able to plantar and dorsiflex the ankle. Calf is soft and nontender. She is able to perform straight leg raise Results & Data ([facility]) Vital Signs (Past 12 Hours) Vital Signs Temp Pulse Pulse Resp BP Pulse Ox O2 Del Method 04/15/22 03:54 36.5 C 86 14 132/56 L 96 Room Air 04/14/22 21:40 Room Air 04/15/22 00:02 36.6 C 82 14 111/62 93 Room Air 04/14/22 23:04 36.5 C 86 14 176/82 H 98 Room Air 04/14/22 22:44 36.7 C 80 18 177/76 H 99 Room Air 04/14/22 21:40 36.7 C 74 14 150/73 H 97 Room Air 04/14/22 20:55 76 12 127/75 98 Oxymask 04/14/22 20:45 72 18 123/65 100 Oxymask 04/14/22 21:05 36.7 C 74 16 135/70 97 Room Air 04/14/22 20:38 36.0 C L 75 12 110/60 99 Oxymask 04/14/22 18:43 71 16 122/70 98 Room Air O2 Flow Rate 04/15/22 03:54 04/14/22 21:40 04/15/22 00:02 04/14/22 23:04 04/14/22 22:44 04/14/22 21:40 04/14/22 20:55 2 04/14/22 20:45 6 04/14/22 21:05 04/14/22 20:38 6 04/14/22 18:43
[2022-04-15] MEDS: METOCLOPRAMIDE HCL 5 MG TABLET PO SCH ×3 (08:03→16:54)
[2022-04-15] MEDS: MULTIVITAMIN TAB PO SCH (08:03)
[2022-04-15] MEDS: amLODIPine BESYLATE 5 MG TAB PO SCH (08:03)
[2022-04-15] MEDS: ASPIRIN 81 MG ECTAB PO SCH (08:03)
[2022-04-15] MEDS: DOCUSATE SODIUM 100 MG CAP PO SCH ×2 (08:04→20:03)
[2022-04-15] MEDS: hydrOXYzine HCl 25 MG TAB PO PRN ×2 (08:04→20:03)
[2022-04-15] MEDS: CLOPIDOGREL BISULFATE 75 MG TAB PO SCH (08:04)
[2022-04-15] MEDS: PREGABALIN 100 MG CAP PO SCH ×3 (08:05→20:03)
[2022-04-15] MEDS: METOPROLOL SUCC 50MG EXT REL TAB PO SCH (08:06)
[2022-04-15] MEDS: CYCLOBENZAPRINE HCL 10 MG TAB PO PRN (08:08)
[2022-04-15 08:41] LABS: Hematocrit (blood only) 29.8 % (34.1-44.9); Hemoglobin 9.1 g/dl (12.0-16.0); Mean Corpuscular Hgb Conc 30.5 g/dL (32.0-36.0); Mean Corpuscular Volume 75.4 fL (80.0-100.0); Mean Platelet Volume 9.7 fL (9.4-12.3); Platelet Count 348 K/uL (130-400); RDW Coefficient of Variation 16.8 % (11.5-14.5); RDW Standard Deviation 45.8 fL (36.4-46.3); Red Blood Count 3.95 M/uL (3.93-5.22); White Blood Count 15.69 K/ul (4.8-10.8)
[2022-04-15] MEDS: INSULIN ASPART PER UNIT SC SCH ×4 (09:05→20:55)
[2022-04-15 09:11] LABS: BUN Creatinine Ratio 16.3 (10-20); Calcium 9.1 mg/dl (8.5-10.1); Creatinine Clr Calc Pharmacy 131.4 ml/min; Est GFR (African American) 130.9 ml/min; Est GFR (Non-African American) 112.9 ml/min; Potassium 3.6 mmol/L (3.5-5.1)
[2022-04-15] MEDS: LANTUS PER UNIT CHARGE SQ SCH ×2 (09:11→20:55)
[2022-04-15] MEDS: oxyCODONE/ACETAMINOPHEN 5mg/325mg TAB PO PRN (09:32)
[2022-04-15] MEDS ORDERED: KETOROLAC TROMETHAMINE 15 MG/ML VIAL IV ONE (09:45)
[2022-04-15] MEDS ORDERED: HYDROmorphone INJ 2 MG/ML SYR/VIAL IV PRN (09:45)
[2022-04-15] MEDS: cefTRIAXone SODIUM 2,000 MG in DEXTROSE 5% 50 ML IV SCH (12:08)
[2022-04-15] MEDS: rOPINIRole HCL 2 MG TABLET PO SCH (20:05)
[2022-04-15] MEDS: SENNA 8.6 MG TAB PO SCH (20:05)
--- NOTE | 2022-04-15 20:21 | Hospitalist Progress Note ---
Date of Service April 15, 2022 Assessment & Plan (1) Cellulitis of left foot: Plan: Left great toe, with abscess and ulceration. Previous culture with MRSA thus remains on IV vancomycin. Remains on ceftriaxone and flagyl - started 04/10. Cont on Dilaudid PRN pain. Adjusted to 1.5mg dose today with improved pain; also gave 1x dose toradol. Most recent cultures grew diamante but this may represent contamination; defer on Rx for now. Of note - MRI showed no osteomyelitis on 04/10. I am uncertain why this infection has not cleared despite copious IV/PO abx and recent LLE PAD intervention by Dr Lin. Underlying immune system deficiency ruled out --- checked IgG and this returned normal. Previous IgM and IgA levels were wnl. 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 Likely heavy contributor. Previous smoking (quit 1 year ago) likely contributed to microvascular disease as well. 04/14/22 - s/p: 1. Left foot great toe subungual abscess incision and drainage. 2. Removal of nail plate with matrixectomy, great toe. 3. Debridement of great toe ulcer 3.0 cm x 2.0 cm x 0.3 cm including skin, dermis, and subcutaneous tissue. by Dr Montaño. Cont current IV abx regimen and await intra-op culture results. (2) Opioid dependence: Plan: Cont IV and PO pain meds for L great toe Increased dilaudid dose today to 1.5mg IV q3h prn (3) Anxiety: Plan: Chronic Cont Ativan TID PRN (4) HTN (hypertension): Plan: Continue Amlodipine Continue Metoprolol labile, likely due to pain monitor (5) Diabetes mellitus type 2, uncontrolled: Plan: Cont basal-bolus regimen BSGs controlled at this time (6) PAD (peripheral artery disease): Plan: Chronic Continue ASA and plavix (7) Iron deficiency anemia: Plan: fecal occult blood test negative ferritin is 10 cannot tolerate IV venofer - dyspnea, BPs ariadna to >200 systolic spoke with pharmacy - Injectafer ordered for her; dose will be 750mg IV x 1 to start should be available by Sunday of this coming week celiac panel pending (sent this to be complete as refractory Fe deficiency can be sign of celiac disease) Plan diarrhea - check c.diff; add lactinex DVT proph - add heparin 5000 BID PT, OT when able Admission and Anticipated Discharge Date Admission Date: April 06, 2022 Subjective received message from nursing staff this am that the 1mg IV dilaudid doses were not improving Ms Eduar's L great toe pain I increased the dose to 1.5mg and this helped her considerably she was more comfortable the rest of the day during rounds she reported copious, frequent liquid stools her rectal area is sore & irritated from such no abd pain eating ok main complaint is the L great toe no other new complaints Review of Systems Review of Systems: gen - no fevers; "I'm very tired today" psych - poor sleep last pm 2nd to insomnia cv - no cp pulm - no cough GI - no nausea/emesis Physical Exam Physical Exam: gen - looks very tired but NAD mouth - MMM, no thrush neck - no JVD heart - RRR, s1 s2, no murmur lungs - CTA b/l abd - soft NT ND BS+ ext - right BKA stump wnl; left foot - pulses 2+; left foot wrapped in dressings - I did not remove them; some of the dressings are blood-soaked psych - oriented x 3 Results & Data Results & Data ([facility]) Vital Signs (Past 12 Hours) Vital Signs Temp Pulse Resp BP Pulse Ox O2 Del Method 04/15/22 14:51 36.7 C 76 16 122/61 95 Room Air 04/15/22 12:00 36.9 C 80 16 120/60 96 Room Air Laboratory Results Laboratory Results - last 24 hr 04/14/22 04/14/22 04/15/22 20:41 22:23 08:08 WBC RBC Hgb Hct MCV MCH MCHC RDW Std Deviation RDW Coeff of Maria [place] Carmen Plt Count MPV Sodium Potassium Chloride Carbon Dioxide Anion Gap BUN Creatinine Est Cr Clr Drug Dosing Est GFR ( Amer) Est GFR (Non-Af Amer) BUN/Creatinine Ratio Glucose POC Glucose 102 H 105 H 139 H Calcium 04/15/22 04/15/22 04/15/22 08:25 08:25 12:02 WBC 15.69 H RBC 3.95 Hgb 9.1 L Hct 29.8 L MCV 75.4 L MCH 23.0 L MCHC 30.5 L RDW Std Deviation 45.8 RDW Coeff of Maria Del Carmen 16.8 H Plt Count 348 MPV 9.7 Sodium 137 Potassium 3.6 Chloride 104 Carbon Dioxide 27 Anion Gap 6 BUN 7 Creatinine 0.43 L Est Cr Clr Drug Dosing 131.4 Est GFR ( Amer) 130.9 Est GFR (Non-Af Amer) 112.9 BUN/Creatinine Ratio 16.3 Glucose 130 H POC Glucose 175 H Calcium 9.1 04/15/22 04/15/22 16:57 20:19 WBC RBC Hgb Hct MCV MCH MCHC RDW Std Deviation RDW Coeff of Maria Del Carmen Plt Count MPV Sodium Potassium Chloride Carbon Dioxide Anion Gap BUN Creatinine Est Cr Clr Drug Dosing Est GFR ( Amer) Est GFR (Non-Af Amer) BUN/Creatinine Ratio Glucose POC Glucose 120 H 93 Calcium Diagnostic Findings intra-op wound cx from 04/14/22 thus far negative/pending PG Care Time/CCT Total # of Minutes Spent Total Time Spent with Patient: Total time spent is greater than 50% in coordination of care (as documented) at patient's floor/unit and/or counseling patient: Coding Level of Care Code 96990 Subseq Hosp Care Lvl 2 Diagnoses Cellulitis of left foot L03.116 Opioid dependence F11.20 Anxiety F41.9 HTN (hypertension) I10 Diabetes mellitus type 2, uncontrolled E11.65 PAD (peripheral artery disease) I73.9 Iron deficiency anemia D50.9
[2022-04-15] MEDS: ZOLPIDEM TARTRATE 10 MG TAB PO PRN (20:56)
[2022-04-15] MEDS ORDERED: INSULIN ASPART PER UNIT SC SCH (22:01)
[2022-04-16] MEDS: VANCOMYCIN HCL 1,250 MG in SODIUM CHLORIDE 0.9% 250 ML IV SCH ×3 (01:49→18:10)
[2022-04-16] MEDS: ONDANSETRON INJ 2 MG/ML 2 ML VIAL IV PRN ×2 (01:50→19:55)
[2022-04-16] MEDS: HYDROmorphone INJ 0.5 MG/0.5 ML SYR IV PRN ×7 (02:06→22:40)
[2022-04-16] MEDS: metroNIDAZOLE 500 MG/100 ML BAG IV SCH ×3 (04:02→19:56)
[2022-04-16] MEDS: CYCLOBENZAPRINE HCL 10 MG TAB PO PRN ×2 (05:21→19:54)
[2022-04-16] MEDS: METOCLOPRAMIDE HCL 5 MG TABLET PO SCH ×3 (08:21→17:20)
[2022-04-16] MEDS: MULTIVITAMIN TAB PO SCH (08:24)
[2022-04-16] MEDS: ASPIRIN 81 MG ECTAB PO SCH (08:24)
[2022-04-16] MEDS: amLODIPine BESYLATE 5 MG TAB PO SCH (08:24)
[2022-04-16] MEDS: DOCUSATE SODIUM 100 MG CAP PO SCH ×2 (08:25→19:30)
[2022-04-16] MEDS: CLOPIDOGREL BISULFATE 75 MG TAB PO SCH (08:25)
[2022-04-16] MEDS: PREGABALIN 100 MG CAP PO SCH ×3 (08:31→19:55)
[2022-04-16] MEDS: INSULIN ASPART PER UNIT SC SCH ×4 (08:45→21:29)
[2022-04-16] MEDS: LANTUS PER UNIT CHARGE SQ SCH ×2 (08:45→21:29)
[2022-04-16] MEDS: METOPROLOL SUCC 50MG EXT REL TAB PO SCH (08:51)
[2022-04-16] MEDS ORDERED: VANCOMYCIN LEVEL ONE (09:30)
[2022-04-16] MEDS: HEPARIN SOD 5,000 UNIT/0.5 ML VIAL SQ SCH ×2 (09:32→19:33)
[2022-04-16 09:39] LABS: Hematocrit (blood only) 29.4 % (34.1-44.9); Mean Corpuscular Hemoglobin 23.1 pg (25.0-34.0); Mean Corpuscular Hgb Conc 30.6 g/dL (32.0-36.0); Mean Corpuscular Volume 75.6 fL (80.0-100.0); Mean Platelet Volume 9.8 fL (9.4-12.3); Platelet Count 354 K/uL (130-400); RDW Coefficient of Variation 17.2 % (11.5-14.5); RDW Standard Deviation 46.2 fL (36.4-46.3); Red Blood Count 3.89 M/uL (3.93-5.22); White Blood Count 9.78 K/ul (4.8-10.8)
[2022-04-16 09:57] LABS: BUN Creatinine Ratio 9.4 (10-20); Calcium 9.4 mg/dl (8.5-10.1); Creatinine Clr Calc Pharmacy 106.6 ml/min; Est GFR (African American) 122.2 ml/min; Est GFR (Non-African American) 105.4 ml/min; Potassium 3.5 mmol/L (3.5-5.1)
--- NOTE | 2022-04-16 10:52 | Pharmacy Report ---
Pharmacy PK ABX Note - Date of Service April 16, 2022 - Assessment and Plan Assessment 04/16 * Trough level 12.7 mcg/mL * This is predicted to achieve target AUC/CELSO of 400-600 mg/L.hr 04/14: * Patient completed 7 days of Vancomycin, Dr Carvajal would like to extend duration, concern for MRSA in toe - continue Vancomycin at previous dosing schedule. 04/12: * Antibiotics broadened to vancomycin, ceftriaxone, and metronidazole on 04/10 due to worsening erythema and leukocytosis * If still no improvement with broadened antibiotics, would consider antifungal treatment to cover cultures 04/09: * Cx finalized growing diamante albicans and yeast not diamante albicans. Per provider will continue vanc at least through today. Patient afebrile. 04/08: * Vanc level today borderline low although likely pre-steady state. Will increase dose slightly today and repeat level tomorrow. Foot Culture still pending, blood culture no growth thus far. 04/07: 56 year old F receiving Vancomycin for treatment of LLE cellulitis. Patient has been on Vancomycin several times in the past for same issue. * PMHx significant for T2DM with multiple diabetic foot infections s/p R BKA. Was recently here from 03/08/22-03/16/22 then again from 03/19/22-04/03/22 for similar issues. Multiple recent abx. 03/11/22 LLE culture grew MRSA. Allergies to sulfa and Augmentin. 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 * Afebrile. ESR/CRP mildly elevated. LLE XR not suggestive of osteomyelitis. Renal fxn stable. Leukocytosis improved to 13k today. Blood and foot cultures pending. Plan Vancomycin * Continue 1250 mg IV q8h Pharmacy will continue to follow and will adjust dose/frequency as necessary. Thank you. Pharmacy has transitioned to AUC monitoring for vancomycin. AUC/CELSO is the preferred PK/PD target and is associated with decreased risk of nephrotoxicity compared to traditional trough targets.
--- NOTE | 2022-04-16 11:21 | Orthopedic Progress Note ---
Date of Service April 16, 2022 Assessment & Plan (1) Cellulitis of left foot: Plan: POD #2 s/p Left foot great toe subungual abscess incision and drainage with removal of nail plate with matrixectomy, great toe. debridement of great toe ulcer - heel weightbearing on her left side using the postop shoe -dressing changed today, should cont with daily dressing changes. -She is currently on vancomycin and will continue with this pending intraoperative cultures, d/c abx per primary team ortho discharge instructions placed in the chart, she will call to schedule post op appt with Dr Montaño team 2 weeks from date of surgery. Admission and Anticipated Discharge Date Admission Date: April 06, 2022 Subjective POD #2 Review of Systems Constitutional: no fever and no chills Respiratory: no cough and no dyspnea Cardiovascular: no chest pain, no dyspnea and no orthopnea Gastrointestinal: no abdominal pain, no nausea and no vomiting Physical Exam Physical Exam: Vital Signs Temp 37.3 C 04/16/22 07:11 Pulse 91 H 04/16/22 08:23 Resp 16 04/16/22 07:11 BP 182/77 H 04/16/22 09:34 Pulse Ox 97 04/16/22 07:11 O2 Del Method 04/16/22 07:11 O2 Flow Rate 2 04/14/22 20:55 Intake & Output 04/15/22 04/16/22 04/16/22 18:59 06:59 18:59 Intake Total 445 / 1555 1110 / 1555 Balance 445 / 1555 1110 / 1555 Intake: IV 445 / 1195 750 / 1195 Vancomycin HCl 1,250 mg In 275 / 825 550 / 825 Sodium Chlorid e 0.9% 250 ml @ 200 mls/hr IV Q8H [facility] Rx#: [id number] cefTRIAXone SO DIUM 2,000 mg In 70 / 70 Dextrose 5% 50 ml @ 100 mls/hr IV DAILY@1200 [facility] Rx#:[id number] metroNIDAZOLE 500 mg In 100 ml 100 / 300 200 / 300 @ 100 mls/hr I V Q8H [facility] Rx#: [id number] Oral 360 / 360 Other: # Unmeasured Voi ds 1 1 Musculoskeletal: left foot: dressing removed, no drainage noted, medial great toe incision skin edges well approximated. great toenail has been removed. she can flex and extend her great toe. she is able to plantar/dorsiflex the foot. Results & Data ([facility]) Vital Signs (Past 12 Hours) Vital Signs Temp Pulse Resp BP Pulse Ox O2 Del Method 04/16/22 09:34 182/77 H 04/16/22 08:23 91 H 179/79 H 04/16/22 07:11 37.3 C 81 16 135/66 97 Room Air
[2022-04-16] MEDS: cefTRIAXone SODIUM 2,000 MG in DEXTROSE 5% 50 ML IV SCH (12:13)
[2022-04-16] MEDS: hydrOXYzine HCl 25 MG TAB PO PRN ×2 (13:26→19:54)
[2022-04-16] MEDS: rOPINIRole HCL 2 MG TABLET PO SCH (19:30)
[2022-04-16] MEDS: SENNA 8.6 MG TAB PO SCH (19:30)
[2022-04-16] MEDS ORDERED: traZODone HCL 50 MG TAB PO SCH (21:00)
--- NOTE | 2022-04-16 21:03 | Hospitalist Progress Note ---
Date of Service April 16, 2022 Assessment & Plan (1) Cellulitis of left foot: Plan: Left great toe, with abscess and ulceration. 04/14/22 - s/p: 1. Left foot great toe subungual abscess incision and drainage. 2. Removal of nail plate with matrixectomy, great toe. 3. Debridement of great toe ulcer 3.0 cm x 2.0 cm x 0.3 cm including skin, dermis, and subcutaneous tissue. by Dr Montaño. Previous culture with MRSA - remains on IV vancomycin. Ceftriaxone and flagyl started 04/10. Since intra-op culture is negative will stop these 2 abx. A previous culture grew diamante but suspect this was contamination thus NOT placed on anti-fungal Rx. Cont on Dilaudid PRN pain. Of note - MRI showed no osteomyelitis on 04/10. I am uncertain why this infection has not cleared despite copious IV/PO abx and recent LLE PAD intervention by Dr Lin. Underlying immune system deficiency ruled out --- checked IgG and this returned normal. Previous IgM and IgA levels were wnl. 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 Likely heavy contributor. Previous smoking (quit 1 year ago) likely contributed to microvascular disease as well. I will inspect the wound tomorrow. If stable will stop IV vanco and place on PO doxy. Would keep on doxy perhaps until wound is fully healed. She needs wound care center 2-3 times each week to monitor this given her recurrent infections, recurrent hospital stays, etc. (2) Opioid dependence: Plan: Cont dilaudid IV prn. She would benefit from a long-acting pain med rather than percocet prn. She reports percocet "does nothing" for the pain. She has been on narcotics on monthly basis for several years per the PDMP. Uncertain what best avenue is for her pain. Consider pain management consultation. (3) Anxiety: Plan: Chronic Cont Ativan TID PRN Advise psych consult - this is feeding into her severe insomnia (4) HTN (hypertension): Plan: Continue Amlodipine Continue Metoprolol labile, likely due to pain monitor (5) Diabetes mellitus type 2, uncontrolled: Plan: Cont basal-bolus regimen BSGs controlled at this time (6) PAD (peripheral artery disease): Plan: Chronic Continue ASA and plavix (7) Iron deficiency anemia: Plan: fecal occult blood test negative ferritin is 10 cannot tolerate IV venofer - dyspnea, BPs ariadna to >200 systolic spoke with pharmacy - Injectafer ordered for her; dose will be 750mg IV x 1 to start should be available by Sunday of this coming week celiac panel pending (sent this to be complete as refractory Fe deficiency can be sign of celiac disease) (8) Diarrhea: Plan: c diff negative likely abx-associated diarrhea can't rule out celiac given her severe, chronic Fe def - TTG's pending imodium prn lactinex (9) Insomnia: Plan: long-standing, refractory to numerous agents used trial of trazodone tonight strongly consider psych consult srinivas - has been on this chronically; has tolerance; this will not help her Plan DVT proph - heparin 5000 BID Check nutritional labs in am - 25-OH Vit D, B12 PT, OT when able updated at bedside Admission and Anticipated Discharge Date Admission Date: April 06, 2022 Subjective patient reports SEVERE insomnia has not slept in several days she reports similar patterns at home of going "days" without sleeping blames such on her "mind racing" all night states "she's been like this for years" I asked what she has taken before - specifically mentions srinivas jaime - nothing helps has never seen neurology or psych for this in the same conversation she said "I really hope I can go home soon" pain in L foot remains eating ok no dyspnea or AVILEZ Review of Systems Review of Systems: gen - no fevers cv - no cp, no orthopnea gi - diarrhea improved today; no nausea psych - anxiety, insomnia Physical Exam Physical Exam: gen - looks very tired still; but NAD mouth - MMM, no thrush neck - no JVD heart - RRR, s1 s2, no murmur lungs - CTA b/l abd - soft NT ND BS+ ext - right BKA stump wnl; left foot - pulses 2+; left foot wrapped in dressings - again I did not remove them; dressings C/D/I psych - oriented x 3 Results & Data Results & Data ([facility]) Vital Signs (Past 12 Hours) Vital Signs Temp Pulse Resp BP BP Pulse Ox O2 Del Method 04/16/22 14:55 36.8 C 79 16 147/67 H 97 Room Air 04/16/22 11:43 80 156/69 H 04/16/22 09:34 182/77 H Diagnostic Findings intra-op culture -- negative PG Care Time/CCT Total # of Minutes Spent Total Time Spent with Patient: Total time spent is greater than 50% in coordination of care (as documented) at patient's floor/unit and/or counseling patient: Coding Level of Care Code 43551 Subseq Hosp Care Lvl 3 Diagnoses Cellulitis of left foot L03.116 Opioid dependence F11.20 Anxiety F41.9 HTN (hypertension) I10 Diabetes mellitus type 2, uncontrolled E11.65 PAD (peripheral artery disease) I73.9 Iron deficiency anemia D50.9 Diarrhea R19.7 Insomnia G47.00
[2022-04-16] MEDS: ZOLPIDEM TARTRATE 10 MG TAB PO PRN (21:29)
[2022-04-17] MEDS: VANCOMYCIN HCL 1,250 MG in SODIUM CHLORIDE 0.9% 250 ML IV SCH ×3 (02:04→17:38)
[2022-04-17] MEDS: HYDROmorphone INJ 0.5 MG/0.5 ML SYR IV PRN ×8 (02:05→23:53)
[2022-04-17] MEDS: CYCLOBENZAPRINE HCL 10 MG TAB PO PRN ×2 (03:40→20:21)
[2022-04-17] MEDS: hydrOXYzine HCl 25 MG TAB PO PRN ×3 (03:40→20:21)
[2022-04-17] MEDS: metroNIDAZOLE 500 MG/100 ML BAG IV SCH (04:45)
[2022-04-17 07:30] LABS: BUN Creatinine Ratio 19.6 (10-20); Calcium 8.9 mg/dl (8.5-10.1); Creatinine Clr Calc Pharmacy 110.8 ml/min; Est GFR (African American) 123.7 ml/min; Est GFR (Non-African American) 106.7 ml/min; Potassium 3.8 mmol/L (3.5-5.1)
[2022-04-17 07:55] LABS: Folate (Folic Acid) 15.83 ng/ml (>5.38)
[2022-04-17 07:59] LABS: Vitamin D, 25 Hydrox 13.9 ng/ml (30-100)
[2022-04-17] MEDS: amLODIPine BESYLATE 5 MG TAB PO SCH ×2 (08:05→20:15)
[2022-04-17] MEDS: MULTIVITAMIN TAB PO SCH (08:05)
[2022-04-17] MEDS: METOCLOPRAMIDE HCL 5 MG TABLET PO SCH ×3 (08:05→16:59)
[2022-04-17] MEDS: METOPROLOL SUCC 50MG EXT REL TAB PO SCH (08:05)
[2022-04-17] MEDS: DOCUSATE SODIUM 100 MG CAP PO SCH ×2 (08:05→20:22)
[2022-04-17] MEDS: ASPIRIN 81 MG ECTAB PO SCH (08:06)
[2022-04-17] MEDS: HEPARIN SOD 5,000 UNIT/0.5 ML VIAL SQ SCH ×2 (08:06→20:22)
[2022-04-17] MEDS: CLOPIDOGREL BISULFATE 75 MG TAB PO SCH (08:06)
[2022-04-17] MEDS: PREGABALIN 100 MG CAP PO SCH ×3 (08:09→20:21)
[2022-04-17] MEDS: INSULIN ASPART PER UNIT SC SCH ×4 (08:39→20:56)
[2022-04-17] MEDS: LANTUS PER UNIT CHARGE SQ SCH ×2 (08:39→20:56)
[2022-04-17] MEDS ORDERED: ERGOCALCIFEROL 50,000 UNITS 1250 MCG CAP PO SCH (09:30)
[2022-04-17] MEDS ORDERED: LOPERAMIDE HCL 2 MG CAP PO PRN (09:42)
[2022-04-17] MEDS: ADVANCED PROBIOTIC 1250 MG CAPSULE PO SCH (10:49)
[2022-04-17] MEDS: THIAMINE HCL 100 MG TAB PO SCH ×2 (10:50→20:24)
[2022-04-17] MEDS: CYANOCOBALAMIN (B-12) 500 MCG TABLET PO SCH (10:50)
[2022-04-17] MEDS: DICLOFENAC SOD 1% GEL 100 GM TUBE EXT SCH ×3 (12:31→20:15)
--- NOTE | 2022-04-17 15:52 | Communication Note ---
Date of Service: April 17, [address] Carvajal. Psych liason to see patient this evening and she will be seen by psychiatry tomorrow for full consult regarding ongoing anxiety and insomnia. Option to try trazodone 100mg qhs tonight to see if this helps with insomnia at all.
[2022-04-17] MEDS: LORazepam 1 MG TAB PO PRN (16:55)
[2022-04-17] MEDS ORDERED: KETOROLAC 30 MG/ML VIAL IV ONE (17:19)
[2022-04-17] MEDS: rOPINIRole HCL 2 MG TABLET PO SCH (20:23)
[2022-04-17] MEDS: SENNA 8.6 MG TAB PO SCH (20:23)
[2022-04-17] MEDS: ZOLPIDEM TARTRATE 10 MG TAB PO PRN (20:57)
[2022-04-17] MEDS: ONDANSETRON INJ 2 MG/ML 2 ML VIAL IV PRN (20:57)
[2022-04-17] MEDS ORDERED: DOXYCYCLINE HYCLATE 100 MG CAP PO STA (21:15)
--- NOTE | 2022-04-17 21:18 | Hospitalist Progress Note ---
Date of Service April 17, 2022 Assessment & Plan (1) Cellulitis of left foot: Plan: Left great toe, with abscess and ulceration. 04/14/22 - s/p: 1. Left foot great toe subungual abscess incision and drainage. 2. Removal of nail plate with matrixectomy, great toe. 3. Debridement of great toe ulcer 3.0 cm x 2.0 cm x 0.3 cm including skin, dermis, and subcutaneous tissue. by Dr Montaño. Previous culture with MRSA - remains on IV vancomycin. Ceftriaxone and flagyl started 04/10. Stopped these 2 abx on 04/16. A previous culture grew diamante but suspect this was contamination thus NOT placed on anti-fungal Rx. Culture intra-op from 04/14 remains negative. Patient asked multiple times today for IV vanco to be stopped - infusions are uncomfortable for her - reasonable to d/c IV vanco. Change to PO doxy 100mg BID (this was Christine BOYCE recommendation during previous hospitalization). Will ask Christine BOYCE to see in consult tomorrow for final antibiotic recommendations. Patient previously set up with [facility] [place] - she will need this set up again closer to her discharge. Will need f/u with [facility] shortly after this discharge as well. Of note - MRI showed no osteomyelitis on 04/10. I am uncertain why this infection will not clear despite copious IV/PO abx and recent LLE PAD intervention by Dr Lin. Underlying immune system deficiency ruled out --- checked IgG and this returned normal. Previous IgM and IgA levels were wnl. 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 Likely heavy contributor. Previous smoking (quit 1 year ago) likely contributed to microvascular disease as well. (2) Opioid dependence: Plan: Cont dilaudid IV prn for acute pain. Gave toradol 30mg IV x 1 as adjunct today. She would benefit from a long-acting pain med rather than percocet prn. She reports percocet "does nothing" for the pain. She has been on narcotics on monthly basis for several years per the PDMP. Uncertain what best avenue is for her pain. Will consult pain management tomorrow for their recommendations. She remains on lyrica 100mg TID. Due to c/o L calf pain will obtain doppler - r/o DVT. Strong family history of VTE. (3) Anxiety: Plan: Chronic Cont Ativan TID PRN Advised psych consult - this is feeding into her severe insomnia - appreciate psych consultation (4) HTN (hypertension): Plan: Continue Amlodipine Continue Metoprolol labile, likely due to pain and anxiety since BPs remain high will increase amlodipine to 5mg BID (5) Diabetes mellitus type 2, uncontrolled: Plan: Cont basal-bolus regimen BSGs controlled at this time (6) PAD (peripheral artery disease): Plan: Chronic Continue ASA and plavix (7) Iron deficiency anemia: Plan: fecal occult blood test negative ferritin is 10 cannot tolerate IV venofer - dyspnea, BPs ariadna to >200 systolic by her report spoke with pharmacy - Injectafer ordered for her; dose will be 750mg IV x 1 to start should be available by Wednesday 04/18 for infusion consider transferring to [facility] for this infusion to be monitored carefully celiac panel pending (sent this to be complete as refractory Fe deficiency can be sign of celiac disease) H/H last 2-3 days remain stable B12 level is low-normal -- supplement will also supplement thiamine 200mg BID x 1 month (8) Diarrhea: Plan: c diff negative likely abx-associated diarrhea can't rule out celiac given her severe, chronic Fe def - TTG's pending imodium prn lactinex daily (9) Insomnia: Plan: long-standing, refractory to numerous agents used (seroquel, ambien, trazodone, etc) psych consult pending pt reports can't take trazodone - gives her migraines (10) Vitamin D deficiency: Plan: level 13.9 today start ergocalciferol 30708 units qweekly x 8 weeks (11) History of right below knee amputation: Plan: no issues Plan DVT proph - heparin 5000 BID Admission and Anticipated Discharge Date Admission Date: April 06, 2022 Subjective numerous complaints today - 1. ongoing left great toe pain - throbbing, pulsating; much worse with dressing changes 2. left distal leg/calf pain - had some overnight (does report that her mother had DVT and another family member had clots) 3. ongoing anxiety and tearfulness; "I can't shut my mind off" - "I just need to go home" 4. ongoing sleep issues - reports she can't take trazodone as it makes her migraine headaches worse; she refused last evening's dose; she slept "a little" with her usual ambien 5. diarrhea has returned - loose/watery 6. pain with IV vancomycin infusions - asks that vanco be stopped Review of Systems Review of Systems: gen - no fevers; +fatigue; eating ok cv - no orthopnea or chest pain pulm - no dyspnea GI - no abd pain but having diarrhea - voiding fine psych - tearful, anxious, severe insomnia Physical Exam Physical Exam: gen - crying the entire encounter, anxious, in pain mouth - MMM, no thrush neck - no JVD heart - RRR, s1 s2, no murmur lungs - CTA b/l abd - soft NT ND BS+ ext - right BKA stump wnl; left foot - pulses 2+; left foot cap refill < 2 sec; dressings were previously removed by staff - left great toe wound clean, no odor, no drainage, toenail absent; minimal erythema distal anterior toe; tender to touch over distal toe; minimal granulation tissue undersurface of toe; debrided skin undersurface of toe psych - oriented x 3 but depressed/tearful/anxious Results & Data Results & Data ([facility]) Vital Signs (Past 12 Hours) Vital Signs Temp Pulse Resp BP Pulse Ox O2 Del Method 04/17/22 15:56 36.5 C 75 18 171/69 H 94 Room Air Laboratory Results Laboratory Results - last 24 hr 04/17/22 04/17/22 04/17/22 06:39 06:39 08:07 Sodium 137 Potassium 3.8 Chloride 103 Carbon Dioxide 30 Anion Gap 4 BUN 10 Creatinine 0.51 L Est Cr Clr Drug Dosing 110.8 Est GFR ( Amer) 123.7 Est GFR (Non-Af Amer) 106.7 BUN/Creatinine Ratio 19.6 Glucose 183 H POC Glucose 159 H Calcium 8.9 Vitamin B12 295 25-OH Vitamin D Total 13.9 L Folate 15.83 04/17/22 04/17/22 04/17/22 12:05 17:33 20:34 Sodium Potassium Chloride Carbon Dioxide Anion Gap BUN Creatinine Est Cr Clr Drug Dosing Est GFR ( Amer) Est GFR (Non-Af Amer) BUN/Creatinine Ratio Glucose POC Glucose 73 148 H 215 H Calcium Vitamin B12 25-OH Vitamin D Total Folate Diagnostic Findings L great toe - wound culture intra-op from 04/14 --> negative to date prior wound culture from 04/07 - diamante only, no bacterial pathogens PG Care Time/CCT Total # of Minutes Spent Total Time Spent with Patient: Total time spent is greater than 50% in coordination of care (as documented) at patient's floor/unit and/or counseling patient: Coding Level of Care Code 09443 Subseq Hosp Care Lvl 3 Diagnoses Cellulitis of left foot L03.116 Opioid dependence F11.20 Anxiety F41.9 HTN (hypertension) I10 Diabetes mellitus type 2, uncontrolled E11.65 PAD (peripheral artery disease) I73.9 Iron deficiency anemia D50.9 Diarrhea R19.7 Insomnia G47.00 Vitamin D deficiency E55.9 History of right below knee amputation Z89.511
[2022-04-18] MEDS: HYDROmorphone INJ 0.5 MG/0.5 ML SYR IV PRN ×6 (03:32→21:19)
[2022-04-18] MEDS: hydrOXYzine HCl 25 MG TAB PO PRN ×2 (05:15→12:17)
[2022-04-18] MEDS: ONDANSETRON INJ 2 MG/ML 2 ML VIAL IV PRN ×2 (05:15→19:57)
[2022-04-18] MEDS: CYCLOBENZAPRINE HCL 10 MG TAB PO PRN (05:15)
--- NOTE | 2022-04-18 07:01 | Psychiatric Consultation ---
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 Admin: 04/18/22 05:15 Dose: 4 mg Documented By: Admin: 04/17/22 20:57 Dose: 4 mg Documented By: Admin: 04/16/22 19:55 Dose: 4 mg Documented By: Admin: 04/16/22 01:50 Dose: 4 mg Documented By: Admin: 04/15/22 04:22 Dose: 4 mg Documented By: Admin: 04/14/22 12:42 Dose: 4 mg Documented By: Admin: 04/14/22 04:47 Dose: 4 mg Documented By: Admin: 04/12/22 09:27 Dose: 4 mg Documented By: Admin: 04/12/22 00:59 Dose: 4 mg Documented By: Admin: 04/11/22 07:22 Dose: 4 mg Documented By: Admin: 04/10/22 04:52 Dose: 4 mg Documented By: Admin: 04/09/22 07:22 Dose: 4 mg Documented By: Admin: 04/08/22 23:32 Dose: 4 mg Documented By: Admin: 04/08/22 04:29 Dose: 4 mg Documented By: Admin: 04/07/22 21:50 Dose: 4 mg Documented By: Admin: 04/07/22 12:25 Dose: 4 mg Documented By: BARBARA Oxycodone/Acetaminophen (Oxycodone/Acetaminophen 5mg/325mg Tab) 2 tab PO Q4H PRN PRN Reason: moderate to severe breakthrough pain Stop: 04/21/22 01:00 Last Admin: 04/15/22 09:32 Dose: 2 tab Documented By: Admin: 04/14/22 12:37 Dose: 2 tab Documented By: Admin: 04/13/22 20:51 Dose: 2 tab Documented By: Admin: 04/13/22 13:36 Dose: 2 tab Documented By: Admin: 04/13/22 09:11 Dose: 2 tab Documented By: Admin: 04/13/22 05:01 Dose: 2 tab Documented By: Admin: 04/12/22 21:51 Dose: 2 tab Documented By: Admin: 04/11/22 10:59 Dose: 2 tab Documented By: Admin: 04/11/22 00:39 Dose: 2 tab Documented By: Admin: 04/10/22 09:28 Dose: 2 tab Documented By: Admin: 04/08/22 22:58 Dose: 2 tab Documented By: Admin: 04/08/22 12:35 Dose: 2 tab Documented By: Admin: 04/08/22 06:19 Dose: 2 tab Documented By: Admin: 04/08/22 01:27 Dose: 2 tab Documented By: Admin: 04/07/22 21:22 Dose: 2 tab Documented By: Admin: 04/07/22 17:06 Dose: 2 tab Documented By: Admin: 04/07/22 07:33 Dose: 2 tab Documented By: BARBARA Pregabalin (Pregabalin 100 Mg Cap) 100 mg PO TID RICKY Stop: 05/07/22 08:59 Last Admin: 04/17/22 20:21 Dose: 100 mg Documented By: Admin: 04/17/22 12:30 Dose: 100 mg Documented By: ОЛЕГ Admin: 04/17/22 08:09 Dose: 100 mg Documented By: ОЛЕГ Admin: 04/16/22 19:55 Dose: 100 mg Documented By: Admin: 04/16/22 13:26 Dose: 100 mg Documented By: Admin: 04/16/22 08:31 Dose: 100 mg Documented By: Admin: 04/15/22 20:03 Dose: 100 mg Documented By: Admin: 04/15/22 13:44 Dose: 100 mg Documented By: Admin: 04/15/22 08:05 Dose: 100 mg Documented By: Admin: 04/14/22 22:19 Dose: 100 mg Documented By: Admin: 04/14/22 14:10 Dose: 100 mg Documented By: Admin: 04/14/22 07:51 Dose: 100 mg Documented By: Admin: 04/13/22 21:34 Dose: 100 mg Documented By: Admin: 04/13/22 14:09 Dose: 100 mg Documented By: Admin: 04/13/22 08:56 Dose: 100 mg Documented By: Admin: 04/12/22 21:49 Dose: 100 mg Documented By: Admin: 04/12/22 14:16 Dose: 100 mg Documented By: Admin: 04/12/22 09:22 Dose: 100 mg Documented By: Admin: 04/11/22 20:29 Dose: 100 mg Documented By: Admin: 04/11/22 13:19 Dose: 100 mg Documented By: Admin: 04/11/22 08:20 Dose: 100 mg Documented By: Admin: 04/10/22 22:08 Dose: 100 mg Documented By: Admin: 04/10/22 13:52 Dose: 100 mg Documented By: Admin: 04/10/22 08:23 Dose: 100 mg Documented By: Admin: 04/09/22 21:26 Dose: 100 mg Documented By: Admin: 04/09/22 13:26 Dose: 100 mg Documented By: Admin: 04/09/22 08:56 Dose: 100 mg Documented By: Admin: 04/08/22 20:29 Dose: 100 mg Documented By: Admin: 04/08/22 14:14 Dose: 100 mg Documented By: Admin: 04/08/22 08:45 Dose: 100 mg Documented By: Admin: 04/07/22 20:13 Dose: 100 mg Documented By: Admin: 04/07/22 13:23 Dose: 100 mg Documented By: Admin: 04/07/22 07:34 Dose: 100 mg Documented By: BARBARA Ropinirole HCl (Ropinirole Hcl 2 Mg Tablet) 4 mg PO HS RICKY Stop: 05/07/22 20:59 Last Admin: 04/17/22 20:23 Dose: 4 mg Documented By: Admin: 04/16/22 19:30 Dose: 4 mg Documented By: Admin: 04/15/22 20:05 Dose: 4 mg Documented By: Admin: 04/14/22 22:19 Dose: 4 mg Documented By: Admin: 04/13/22 21:34 Dose: 4 mg Documented By: Admin: 04/12/22 21:51 Dose: 4 mg Documented By: Admin: 04/11/22 20:28 Dose: 4 mg Documented By: Admin: 04/10/22 22:09 Dose: 4 mg Documented By: Admin: 04/09/22 21:27 Dose: 4 mg Documented By: Admin: 04/08/22 20:29 Dose: 4 mg Documented By: Admin: 04/07/22 20:10 Dose: 4 mg Documented By: HUMAIRA Sennosides (Senna 8.6 Mg Tab) 17.2 mg PO HS RICKY Stop: 05/14/22 21:31 Last Admin: 04/17/22 20:23 Dose: Not Given Documented By: Admin: 04/16/22 19:30 Dose: Not Given Documented By: Admin: 04/15/22 20:05 Dose: Not Given Documented By: Admin: 04/14/22 21:44 Dose: Not Given Documented By: YASH Thiamine HCl (Thiamine Hcl 100 Mg Tab) 200 mg PO BID RICKY Stop: 05/17/22 09:44 Last Admin: 04/17/22 20:24 Dose: 200 mg Documented By: Admin: 04/17/22 10:50 Dose: 200 mg Documented By: WRM Zolpidem Tartrate (Zolpidem Tartrate 10 Mg Tab) 10 mg PO HS PRN PRN Reason: Sleep Stop: 05/07/22 01:00 Last Admin: 04/17/22 20:57 Dose: 10 mg Documented By: Admin: 04/16/22 21:29 Dose: 10 mg Documented By: Admin: 04/15/22 20:56 Dose: 10 mg Documented By: Admin: 04/14/22 22:25 Dose: 10 mg Documented By: Admin: 04/13/22 21:33 Dose: 10 mg Documented By: Admin: 04/12/22 21:49 Dose: 10 mg Documented By: Admin: 04/11/22 20:29 Dose: 10 mg Documented By: Admin: 04/10/22 22:08 Dose: 10 mg Documented By: Admin: 04/09/22 21:33 Dose: 10 mg Documented By: Admin: 04/08/22 22:40 Dose: 10 mg Documented By: Admin: 04/07/22 20:10 Dose: 10 mg Documented By: Admin: 04/07/22 02:30 Dose: 10 mg Documented By: SG Coding Level of Care Code 42032 Inpt Consult Level 3 Diagnoses Insomnia G47.00 Acute adjustment disorder with mixed anxiety and depressed mood F43.23 Cellulitis L03.90
[2022-04-18 07:55] LABS: C Reactive Protein 0.8 mg/dl (0-0.5); Calcium 9.2 mg/dl (8.5-10.1); Creatinine Clr Calc Pharmacy 95.8 ml/min; Est GFR (African American) 117.9 ml/min; Est GFR (Non-African American) 101.7 ml/min; Potassium 4.1 mmol/L (3.5-5.1)
--- NOTE | 2022-04-18 08:36 | Pain Management Consultation ---
Date of Consultation April 18, 2022 Assessment & Plan (1) PAD (peripheral artery disease): (2) Opioid dependence: (3) Depression: (4) Diabetes mellitus type 2, uncontrolled: Plan 1. We have discussed trying OxyContin 10mg BID as this was helpful towards diminishing her pain during a previous hospitalization. 2. She is agreeable that IV Dilaudid will require weaning tomorrow once OxyContin takes effect. 3. On discharge she will take her chronic Percocet for pain. 4. Patient is agreeable to the above plan. Questions were answered. Will sign off on the patient. Please contact with any questions or concerns. Thank you. History of Present Illness Attending Physician: Sangeeta Ko MD History of Present Illness Mrs. Witt is a 56 year old female with a significant history of diabetes mellitus, peripheral artery disease, opioid dependence, and recurring lower extremity infections which has resulted in a right BKA and a recent left great toe subungual abscess requiring I&D and debridement of great toe ulcer. She is chronically on Percocet 5/325mg. For post op pain in the hospital she has been using Dilaudid 1.5mg x 3 hours which is moderately effective. Pain Assessment Pain scale - at its best (0-10): 6 Pain scale - at its worst (0-10): 10 Allergies Allergy/AdvReac Type Severity Reaction Status Date / Time morphine Allergy Severe blisters Verified 04/06/22 21:38 in mouth Sulfa (Sulfonamide Allergy Severe rash/swelli Verified 04/06/22 21:38 Antibiotics) ng iron [From Venofer] Allergy Intermediate Hypertensio Verified 04/06/22 21:38 n vancomycin Allergy Intermediate YULIYA Verified 04/06/22 21:38 SYNDROME---CAN TAKE IF VERY SLOW DRIP. amoxicillin [From Augmentin] Allergy Mild itching/power Verified 04/06/22 21:38 h clavulanic acid Allergy Mild itching/power Verified 04/06/22 21:38 [From Augmentin] h dermabond AdvReac excoriates Uncoded 04/06/22 21:40 skin Home Medications Medication Instructions Recorded Confirmed Type ropinirole 2 mg tablet 4 mg PO HS 10/19/20 04/06/22 History metoprolol succinate 50 mg 50 mg PO QAM 03/05/21 04/06/22 History tablet,extended release 24 hr (Toprol XL) aspirin 81 mg tablet,delayed 81 mg PO BID #60 tabs 10/04/21 04/07/22 Rx release (Melissa Low Dose Aspirin) lorazepam 1 mg tablet (Ativan) 1 mg PO TID PRN Anxiety 11/04/21 04/06/22 History cyclobenzaprine 10 mg tablet 10 mg PO BID PRN Muscle Spasm 11/24/21 04/06/22 History metoclopramide HCl 5 mg tablet 5 mg PO AC #90 tabs 12/26/21 04/06/22 Rx oxycodone-acetaminophen 5 mg-325 2 tab PO Q4H PRN moderate to 12/26/21 04/06/22 Rx mg tablet (Percocet) severe breakthrough pain #30 tabs insulin glargine 100 unit/mL (3 20 unit subcut HS 03/08/22 04/06/22 History mL) subcutaneous pen (Lantus Solostar U-100 Insulin) insulin lispro 100 unit/mL 5 unit subcut TIDM 03/08/22 04/06/22 History subcutaneous pen ondansetron 8 mg disintegrating 8 mg translingual TID PRN Nausea 03/08/22 04/06/22 History tablet zolpidem 10 mg tablet 10 mg PO HS PRN Sleep 03/08/22 04/06/22 History amlodipine 5 mg tablet (Norvasc) 5 mg PO QAM 30 days #30 tabs 03/16/22 04/06/22 Rx clopidogrel 75 mg tablet 75 mg PO QAM #30 tabs 03/30/22 04/06/22 Rx pregabalin 100 mg capsule (Lyrica) 100 mg PO TID 30 days #90 caps 03/30/22 04/06/22 Rx doxycycline hyclate 100 mg capsule 100 mg PO BID #3 caps 04/03/22 04/06/22 Rx Pain History Pain Intensity Pain scale - at its best (0-10): 6 Pain scale - at its worst (0-10): 10 Patient History Medical History Acidosis, lactic Acute dehydration 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 No issues per anesthesia postop progress note. Anemia Cellulitis Chronic back pain Depression Diabetic peripheral neuropathy DM2 (diabetes mellitus, type 2) IDDM, A1c 07/2021-11% Gastritis Gastroenteritis GIB (gastrointestinal bleeding) History of amputation of great toe Hyperlipidemia Insulin dependent diabetes mellitus Iron deficiency anemia Nonobstructive atherosclerosis of coronary artery Numbness of lower extremity Opiate abuse, continuous Opiate dependence Peripheral neuropathy Right second toe ulcer Seizures Sepsis Surgical History History of cardiac cath done at [facility]; 09/22/19; LM - mild luminal irregularities. LAD - mid 20-30%, distal with myocardial bridge & 30% stenosis. L Cx - mild luminal irregularities. RCA - proximal <30% stenosis; mid/distal vessel mild plaques. PDA - mild luminal irregularities. History of esophagogastroduodenoscopy (EGD) History of right below knee amputation (12/22/21) Right Below Knee Amputation(Right) - Davon Good MD, FACS Family History Mother , age 63 Myocardial infarction Father , age 68 or 69 Myocardial infarction Brother S/P CABG (coronary artery bypass graft) Sister Myocardial infarction x 3; she is 57yo Social History Smoking Status: Current every day smoker Tobacco Type: Cigarettes packs per day: 0.5; Years Smoked: 20; Cigarettes Per Day: 20; Second Hand Exposure: No; Hx Alcohol Use: No Hx Substance Use: Yes Prescribed Medications: Marijuana Last Used Substance: Days (ago) Last Used Substance Other:: 2 days ago Substance Use Type Other:: medical marijuana Preferred Language: Upper Sorbian Communication Ability: Effective Visual Impairment: No Limitations Hearing Ability: Normal Hiv Counselor Required: No Beliefs That Will Affect Care: None marital status: Current Living Situation: Spouse current occupational status: unemployed 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 other: raising a grandchild as well; lives in [place] Feels Safe at Home: Yes Safety Concerns: Feels Safe At This Time during the past year weight has: remained stable Assistive Devices: Walker and Wheelchair Physical Exam Physical Exam: GENERAL: This is a 56 year old female that is upset but carrying a productive conversation. In no acute distress. HEAD/FACE: Normocephalic and atraumatic. EYES: No drainage or conjunctival injection. ENT: Nose without bleeding or discharge. Oral mucosa moist. NECK: Full ROM without apparent pain. No swelling or masses noted. RESPIRATORY: Patient with unlabored breathing. No signs of respiratory distress. CHEST/AXILLA: Chest movement symmetrical. No deformities noted. BACK: Moves without difficulty SKIN: [place], warm and dry. No rash noted. MS/EXTREMITY: No swelling, no deformities. Right BKA. Left foot bandaged. NEURO: Alert and appears oriented. Speech is fluent. Cranial Nerves are grossly intact. PSYCH: Alert and calm
--- NOTE | 2022-04-18 08:42 | Ultrasound Report ---
LEFT LOWER EXTREMITY VENOUS DOPPLER HISTORY: L calf pain; eval for DVT COMPARISON STUDY: None. FINDINGS: There is normal compressibility, flow, and augmentation within the left lower extremity dinah p venous system. IMPRESSION: No DVT within the left lower extremity. ACT 112: Negative or not required by law. Electronically signed by: Ernst Murray M.D. 04/18/2022 8:41 AM
[2022-04-18] MEDS: CLOPIDOGREL BISULFATE 75 MG TAB PO SCH (09:28)
[2022-04-18] MEDS: METOPROLOL SUCC 50MG EXT REL TAB PO SCH (09:29)
[2022-04-18] MEDS: ADVANCED PROBIOTIC 1250 MG CAPSULE PO SCH (09:29)
[2022-04-18] MEDS: THIAMINE HCL 100 MG TAB PO SCH ×2 (09:29→19:40)
[2022-04-18] MEDS: MULTIVITAMIN TAB PO SCH (09:30)
[2022-04-18] MEDS: DOXYCYCLINE HYCLATE 100 MG CAP PO SCH ×2 (09:30→19:41)
[2022-04-18] MEDS: amLODIPine BESYLATE 5 MG TAB PO SCH ×2 (09:30→19:43)
[2022-04-18] MEDS: HEPARIN SOD 5,000 UNIT/0.5 ML VIAL SQ SCH ×2 (09:31→19:47)
[2022-04-18] MEDS: ASPIRIN 81 MG ECTAB PO SCH (09:31)
[2022-04-18] MEDS: METOCLOPRAMIDE HCL 5 MG TABLET PO SCH ×3 (09:31→17:30)
[2022-04-18] MEDS: DICLOFENAC SOD 1% GEL 100 GM TUBE EXT SCH ×4 (09:31→19:36)
[2022-04-18] MEDS: CYANOCOBALAMIN (B-12) 500 MCG TABLET PO SCH (09:33)
[2022-04-18] MEDS: LANTUS PER UNIT CHARGE SQ SCH ×2 (09:33→19:59)
[2022-04-18] MEDS: INSULIN ASPART PER UNIT SC SCH ×4 (09:33→20:14)
[2022-04-18] MEDS: oxyCODONE HCL 10 MG TABCR (OxyCONTIN) PO SCH ×2 (09:34→19:53)
[2022-04-18] MEDS: PREGABALIN 100 MG CAP PO SCH ×3 (09:34→19:53)
[2022-04-18] MEDS ORDERED: FERRIC CARBOXYMALTOSE 750 MG in SODIUM CHLORIDE 0.9% 250 ML IV SCH (12:00)
[2022-04-18 12:47] LABS: IgA Serum 364 mg/dL (47-310); Tis Trans IgA <1.0 U/mL
--- NOTE | 2022-04-18 14:27 | Hospitalist Progress Note ---
Date of Service April 18, 2022 Assessment & Plan (1) Cellulitis of left foot: Plan: Left great toe, with abscess and ulceration. 04/14/22 - s/p: 1. Left foot great toe subungual abscess incision and drainage. 2. Removal of nail plate with matrixectomy, great toe. 3. Debridement of great toe ulcer 3.0 cm x 2.0 cm x 0.3 cm including skin, dermis, and subcutaneous tissue. by Dr Montaño. Previous culture with MRSA - was on IV vancomycin. Ceftriaxone and flagyl started 04/10. Stopped these 2 abx on 04/16. A previous culture grew diamante but suspect this was contamination thus NOT placed on anti-fungal Rx. Culture intra-op from 04/14 remains negative. Changed to PO doxy 100mg BID on 04/17 (this was [facility] ID recommendation during previous hospitalization). Awaiting [facility] ID to see in consult for final antibiotic recommendations. Patient [facility] [place] - she will need this set up again closer to her discharge. Will need f/u with [facility] shortly after this discharge as well. Of note - MRI showed no osteomyelitis on 04/10. I am uncertain why this infection will not clear despite copious IV/PO abx and recent LLE PAD intervention by Dr Lin. Underlying immune system deficiency ruled out --- checked IgG and this returned normal. Previous IgM and IgA levels were wnl. 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 Likely heavy contributor. Previous smoking (quit 1 year ago) likely contributed to microvascular disease as well. (2) Opioid dependence: Plan: Cont dilaudid IV prn for acute pain. She would benefit from a long-acting pain med rather than percocet prn. She reports percocet "does nothing" for the pain. She has been on narcotics on monthly basis for several years per the PDMP. Uncertain what best avenue is for her pain. Appreciate pain management consult-recommend starting Oxycontin 10mg po bid and weaning off dilaudid Pt states she does not need to be weaned off DIlaudid as she has no problems with withdrawal and no cravings for dilaudid when outside of the hospital-is aware of signs/sxs of opioid withdrawal -restart home prn Percocet for breakthrough pain -plan to dc home on Oxycontin She remains on lyrica 100mg TID. (3) Anxiety: Plan: Chronic Cont Ativan TID PRN, Vistaril prn Advised psych consult - this is feeding into her severe insomnia - appreciate psych consultation-awaiting recommendations (4) HTN (hypertension): Plan: BPs now improved with increasing dose of Amlodipine to 5mg bid Continue Metoprolol (5) Diabetes mellitus type 2, uncontrolled: Plan: Cont basal-bolus regimen BSGs controlled at this time (6) PAD (peripheral artery disease): Plan: Chronic Continue ASA and plavix (7) Iron deficiency anemia: Plan: fecal occult blood test negative ferritin is 10 cannot tolerate IV venofer - dyspnea, BPs ariadna to >200 systolic by her report spoke with pharmacy - Injectafer ordered for her; dose will be 750mg IV x 1 to start -to receive infusion today celiac panel negative (sent this to be complete as refractory Fe deficiency can be sign of celiac disease) H/H last 2-3 days remain stable B12 level is low-normal -- supplement will also supplement thiamine 200mg BID x 1 month (8) Diarrhea: Plan: c diff negative, celiac panel negative likely abx-associated diarrhea now resolved imodium prn lactinex daily (9) Insomnia: Plan: long-standing, refractory to numerous agents used (seroquel, ambien, trazodone, etc) psych consult pending pt reports can't take trazodone - gives her migraines (10) Vitamin D deficiency: Plan: level 13.9 here start ergocalciferol 79374 units qweekly x 8 weeks (11) History of right below knee amputation: Plan: no issues Plan DVT proph - heparin 5000 BID Dispo-continued stay, await ID consult, but patient feels she is ready to go home tomorrow Admission and Anticipated Discharge Date Admission Date: April 06, 2022 Anticipated date of discharge: 04/19/22 Subjective Pt tired of being in the hospital. Does not want to wean off the IV dilaudid as she says she has no problem stopping it and going home back on her usual percocet.She is happy about starting the Oxycontin. Still awaiting Psych recommendations. No further diarrhea. No CP, SOB. Is eating and drinking. Review of Systems Review of Systems: All systems reviewed & are unremarkable except as noted in HPI & below Physical Exam Constitutional: WD/WN, vitals as above Eyes: + anicteric sclerae Neck: trachea midline, no thyromegaly Respiratory: normal respiratory effort, lungs clear to auscultation Cardiovascular: RRR, no murmur, no edema Chest (Breasts): Chest: normal inspection of chest Gastrointestinal (Abdomen): normal bowel sounds, soft, nontender, no hepato splenomegaly Musculoskeletal: Extremities: + extremities abnormal to inspection (right BKA;left foot in dressing bulky not removed) Skin: no rashes, warm and dry Neurologic: moves all extremities and awake; no focal motor deficits Psychiatric: A+Ox3, euthymic affect Lymphatic: no lymphedema Results & Data Results & Data ([facility]) Vital Signs (Past 12 Hours) Vital Signs Temp Pulse Resp BP Pulse Ox O2 Del Method 04/18/22 11:20 36.7 C 84 16 146/71 H 96 Room Air 04/18/22 07:20 Room Air 04/18/22 07:27 36.7 C 83 14 133/67 97 Room Air Laboratory Results 04/18/22 04/18/22 04/18/22 Range/Units 12:01 08:15 06:17 Sodium 137 (136-145) mmol/L Potassium 4.1 (3.5-5.1) mmol/L Chloride 103 (98-107) mmol/L Carbon Dioxide 28 (21-32) mmol/L Anion Gap 6 (3-11) BUN 13 (6-23) mg/dl Creatinine 0.59 L (0.6-1.2) mg/dl Est Cr Clr Drug Dosing 95.8 ml/min Est GFR ( Amer) 117.9 ml/min Est GFR (Non-Af Amer) 101.7 ml/min BUN/Creatinine Ratio 22.0 H (10-20) Glucose 127 H (70-99(Fasting)) mg/dl POC Glucose 111 H 145 H (70-99) mg/dl Calcium 9.2 (8.5-10.1) mg/dl C-Reactive Protein 0.80 H (0-0.5) mg/dl IgA (47-310) mg/dL Tiss Transglutamin IgA U/mL Celiac Disease Interp 04/17/22 04/17/22 04/14/22 Range/Units 20:34 17:33 05:44 Sodium (136-145) mmol/L Potassium (3.5-5.1) mmol/L Chloride (98-107) mmol/L Carbon Dioxide (21-32) mmol/L Anion Gap (3-11) BUN (6-23) mg/dl Creatinine (0.6-1.2) mg/dl Est Cr Clr Drug Dosing ml/min Est GFR ( Amer) ml/min Est GFR (Non-Af Amer) ml/min BUN/Creatinine Ratio (10-20) Glucose (70-99(Fasting)) mg/dl POC Glucose 215 H 148 H (70-99) mg/dl Calcium (8.5-10.1) mg/dl C-Reactive Protein (0-0.5) mg/dl IgA 364 H (47-310) mg/dL Tiss Transglutamin IgA <1.0 U/mL Celiac Disease Interp SEE NOTE PG Care Time/CCT Total # of Minutes Spent Total Time Spent with Patient: Total time spent is greater than 50% in coordination of care (as documented) at patient's floor/unit and/or counseling patient: Coding Level of Care Code 21472 Subseq Hosp Care Lvl 2 Diagnoses Cellulitis of left foot L03.116 Opioid dependence F11.20 Anxiety F41.9 HTN (hypertension) I10 Diabetes mellitus type 2, uncontrolled E11.65 PAD (peripheral artery disease) I73.9 Iron deficiency anemia D50.9 Diarrhea R19.7 Insomnia G47.00 Vitamin D deficiency E55.9 History of right below knee amputation Z89.511
[2022-04-18] MEDS ORDERED: hydrOXYzine HCl 25 MG TAB PO PRN (17:25)
[2022-04-18] MEDS: SENNA 8.6 MG TAB PO SCH (19:40)
[2022-04-18] MEDS: rOPINIRole HCL 2 MG TABLET PO SCH (19:42)
[2022-04-18] MEDS: hydrOXYzine HCl 25 MG TAB PO SCH (19:44)
[2022-04-18] MEDS: ZOLPIDEM TARTRATE 10 MG TAB PO PRN (19:57)
[2022-04-19] MEDS: oxyCODONE/ACETAMINOPHEN 5mg/325mg TAB PO PRN ×3 (01:17→16:00)
[2022-04-19] MEDS: HYDROmorphone INJ 0.5 MG/0.5 ML SYR IV PRN ×6 (02:18→21:05)
[2022-04-19] MEDS: hydrOXYzine HCl 25 MG TAB PO PRN (02:18)
[2022-04-19] MEDS: CYCLOBENZAPRINE HCL 10 MG TAB PO PRN (02:18)
[2022-04-19] MEDS: LORazepam 1 MG TAB PO PRN (03:45)
[2022-04-19] MEDS: oxyCODONE HCL 10 MG TABCR (OxyCONTIN) PO SCH (08:17)
[2022-04-19] MEDS: DICLOFENAC SOD 1% GEL 100 GM TUBE EXT SCH ×4 (08:40→21:05)
[2022-04-19] MEDS: METOCLOPRAMIDE HCL 5 MG TABLET PO SCH ×3 (08:41→16:03)
[2022-04-19] MEDS: amLODIPine BESYLATE 5 MG TAB PO SCH ×2 (08:41→21:03)
[2022-04-19] MEDS: ASPIRIN 81 MG ECTAB PO SCH (08:42)
[2022-04-19] MEDS: CYANOCOBALAMIN (B-12) 500 MCG TABLET PO SCH (08:42)
[2022-04-19] MEDS: HEPARIN SOD 5,000 UNIT/0.5 ML VIAL SQ SCH ×2 (08:42→21:23)
[2022-04-19] MEDS: CLOPIDOGREL BISULFATE 75 MG TAB PO SCH (08:42)
[2022-04-19] MEDS: DOXYCYCLINE HYCLATE 100 MG CAP PO SCH ×2 (08:42→21:22)
[2022-04-19] MEDS: ADVANCED PROBIOTIC 1250 MG CAPSULE PO SCH (08:43)
[2022-04-19] MEDS: METOPROLOL SUCC 50MG EXT REL TAB PO SCH (08:43)
[2022-04-19] MEDS: MULTIVITAMIN TAB PO SCH (08:44)
[2022-04-19] MEDS: PREGABALIN 100 MG CAP PO SCH ×3 (08:44→21:20)
[2022-04-19] MEDS: THIAMINE HCL 100 MG TAB PO SCH ×2 (08:44→21:21)
[2022-04-19] MEDS: LANTUS PER UNIT CHARGE SQ SCH ×2 (08:45→20:58)
[2022-04-19] MEDS: INSULIN ASPART PER UNIT SC SCH ×4 (08:45→20:58)
[2022-04-19] MEDS: ONDANSETRON INJ 2 MG/ML 2 ML VIAL IV PRN (17:26)
--- NOTE | 2022-04-19 18:36 | Hospitalist Progress Note ---
Date of Service April 19, 2022 Assessment & Plan (1) Cellulitis of left foot: Plan: Left great toe, with abscess and ulceration. 04/14/22 - s/p: 1. Left foot great toe subungual abscess incision and drainage. 2. Removal of nail plate with matrixectomy, great toe. 3. Debridement of great toe ulcer 3.0 cm x 2.0 cm x 0.3 cm including skin, dermis, and subcutaneous tissue. by Dr Montaño. Previous culture with MRSA - was on IV vancomycin. Ceftriaxone and flagyl started 04/10. Stopped these 2 abx on 04/16. A previous culture grew diamante but suspect this was contamination thus NOT placed on anti-fungal Rx. Culture intra-op from 04/14 remains negative. Changed to PO doxy 100mg BID on 04/17 (this was [facility] recommendation during previous hospitalization). Awaiting [facility] to see in consult for final antibiotic recommendations. Consult was completed today but awaiting report to be scanned into the chart Patient [facility] [place] - she will need this set up again closer to her discharge. Will need f/u with [facility] [place] [facility] shortly after this discharge as well. Of note - MRI showed no osteomyelitis on 04/10. I am uncertain why this infection will not clear despite copious IV/PO abx and recent LLE PAD intervention by Dr Lin. Underlying immune system deficiency ruled out --- checked IgG and this returned normal. Previous IgM and IgA levels were wnl. 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 Likely heavy contributor. Previous smoking (quit 1 year ago) likely contributed to microvascular disease as well. (2) Opioid dependence: Plan: Used to request dilaudid IV for acute severe pain around the clock but swears that she never has withdrawal when she leaves hospital does not want to be gradually weaned off of IV Dilaudid Was started on OxyContin 10 mg p.o. twice daily by pain management-we will consider increasing this as an outpatient She has been on narcotics on monthly basis for several years per the PDMP. -Continue home prn Percocet for breakthrough pain -Continue OxyContin 10 mg p.o. twice daily -She remains on lyrica 100mg TID. (3) Anxiety: Plan: Chronic Advised psych consult - this is feeding into her severe insomnia - appreciate psych consultation-recommend weaning off Ambien, starting doxepin at bedtime or perhaps olanzapine at bedtime if QTC okay. The patient told psychiatry she did not want to go on SSRI, but as per my discussion with patient on 04/19, she is very agreeable to starting sertraline -Start sertraline 25 mg p.o. at bedtime and increase to 50 mg in 1 week -Continue Vistaril at bedtime and as needed during the day -Try to wean off lorazepam as an outpatient -Needs follow-up with [facility] outpatient therapy after discharge (4) HTN (hypertension): Plan: BPs now improved with increasing dose of Amlodipine to 5mg bid Continue Metoprolol (5) Diabetes mellitus type 2, uncontrolled: Plan: Cont basal-bolus regimen BSGs controlled at this time (6) PAD (peripheral artery disease): Plan: Chronic Continue ASA and plavix (7) Iron deficiency anemia: Plan: fecal occult blood test negative ferritin is 10 cannot tolerate IV venofer - dyspnea, BPs ariadna to >200 systolic by her report spoke with pharmacy - Injectafer ordered for her; dose will be 750mg IV x 1 to start -to receive infusion today celiac panel negative (sent this to be complete as refractory Fe deficiency can be sign of celiac disease) H/H last 2-3 days remain stable B12 level is low-normal -- supplement will also supplement thiamine 200mg BID x 1 month (8) Diarrhea: Plan: c diff negative, celiac panel negative likely abx-associated diarrhea Was improved and now returned on 04/19 imodium prn lactinex daily -Repeat C. difficile again (9) Insomnia: Plan: long-standing, refractory to numerous agents used (seroquel, ambien, trazodone, etc) psych consult appreciated-recommendations as above pt reports can't take trazodone - gives her migraines (10) Vitamin D deficiency: Plan: level 13.9 here start ergocalciferol 91944 units qweekly x 8 weeks (11) History of right below knee amputation: Plan: no issues Plan DVT proph - heparin 5000 BID Dispo-continued stay, did not have a ride home this evening-plan to discharge home tomorrow morning Admission and Anticipated Discharge Date Admission Date: April 06, 2022 Subjective Having a lot of pain in her foot with each dressing change and also severe pain with hanging her foot over the edge of the bed. ALso woke up with right eye crusted shut and very itchy all day with drainage from it, no eye pain. Is having loose stools each time after she eats-2 times today. No symptoms and is anxious to get home tomorrow. She feels very down and has great difficulty with insomnia and is agreeable to starting Zoloft. Review of Systems Review of Systems: All systems reviewed & are unremarkable except as noted in HPI & below Physical Exam Constitutional: WD/WN, vitals as above Eyes: + anicteric sclerae Neck: trachea midline, no thyromegaly Respiratory: normal respiratory effort, lungs clear to auscultation Cardiovascular: RRR, no murmur, no edema Chest (Breasts): Chest: normal inspection of chest Gastrointestinal (Abdomen): normal bowel sounds, soft, nontender, no hepatosplenomegaly Musculoskeletal: Extremities: + extremities abnormal to inspection (right BKA;left foot in dressing bulky not removed) Skin: no rashes, warm and dry Neurologic: moves all extremities and awake; no focal motor deficits Psychiatric: Orientation: alert and oriented x 3 Affect: + depressed affect Lymphatic: no lymphedema Results & Data Results & Data ([facility]) Vital Signs (Past 12 Hours) Vital Signs Temp Pulse Resp BP Pulse Ox O2 Del Method 04/19/22 15:01 36.7 C 72 16 163/75 H 98 Room Air 04/19/22 07:17 36.6 C 78 16 125/68 99 Room Air Laboratory Results 04/19/22 04/19/22 04/19/22 Range/Units 17:17 11:55 08:14 POC Glucose 103 H 178 H 115 H (70-99) mg/dl 04/18/22 Range/Units 20:10 POC Glucose 138 H (70-99) mg/dl PG Care Time/CCT Total # of Minutes Spent Total Time Spent with Patient: Total time spent is greater than 50% in coordination of care (as documented) at patient's floor/unit and/or counseling patient: Coding Level of Care Code 76331 Subseq Hosp Care Lvl 2 Diagnoses Cellulitis of left foot L03.116 Opioid dependence F11.20 Anxiety F41.9 HTN (hypertension) I10 Diabetes mellitus type 2, uncontrolled E11.65 PAD (peripheral artery disease) I73.9 Iron deficiency anemia D50.9 Diarrhea R19.7 Insomnia G47.00 Vitamin D deficiency E55.9 History of right below knee amputation Z89.511
[2022-04-19] MEDS: ERYTHROMYCIN OP OINT 1 GM PKT OP SCH (19:48)
[2022-04-19] MEDS ORDERED: SERTRALINE HCL 50 MG TABLET PO SCH (21:00)
[2022-04-19] MEDS: cephALEXin 500 MG CAP PO SCH (21:04)
[2022-04-19] MEDS: rOPINIRole HCL 2 MG TABLET PO SCH (21:21)
[2022-04-19] MEDS: SENNA 8.6 MG TAB PO SCH (21:22)
[2022-04-19] MEDS: hydrOXYzine HCl 25 MG TAB PO SCH (21:22)
[2022-04-20] MEDS: ZOLPIDEM TARTRATE 10 MG TAB PO PRN (01:46)
[2022-04-20] MEDS: HYDROmorphone INJ 0.5 MG/0.5 ML SYR IV PRN ×4 (01:50→12:03)
[2022-04-20] MEDS: oxyCODONE HCL 10 MG TABCR (OxyCONTIN) PO SCH ×2 (01:54→08:27)
[2022-04-20] MEDS: ERYTHROMYCIN OP OINT 1 GM PKT OP SCH ×3 (06:26→12:44)
[2022-04-20] MEDS: oxyCODONE/ACETAMINOPHEN 5mg/325mg TAB PO PRN ×2 (06:28→10:46)
[2022-04-20] MEDS: ONDANSETRON INJ 2 MG/ML 2 ML VIAL IV PRN (08:24)
[2022-04-20] MEDS: PREGABALIN 100 MG CAP PO SCH ×2 (08:24→13:07)
[2022-04-20] MEDS: THIAMINE HCL 100 MG TAB PO SCH (08:24)
[2022-04-20] MEDS: MULTIVITAMIN TAB PO SCH (08:24)
[2022-04-20] MEDS: METOPROLOL SUCC 50MG EXT REL TAB PO SCH (08:24)
[2022-04-20] MEDS: DOXYCYCLINE HYCLATE 100 MG CAP PO SCH (08:25)
[2022-04-20] MEDS: HEPARIN SOD 5,000 UNIT/0.5 ML VIAL SQ SCH (08:25)
[2022-04-20] MEDS: ADVANCED PROBIOTIC 1250 MG CAPSULE PO SCH (08:25)
[2022-04-20] MEDS: CLOPIDOGREL BISULFATE 75 MG TAB PO SCH (08:26)
[2022-04-20] MEDS: CYANOCOBALAMIN (B-12) 500 MCG TABLET PO SCH (08:26)
[2022-04-20] MEDS: ASPIRIN 81 MG ECTAB PO SCH (08:26)
[2022-04-20] MEDS: cephALEXin 500 MG CAP PO SCH ×2 (08:27→12:10)
[2022-04-20] MEDS: METOCLOPRAMIDE HCL 5 MG TABLET PO SCH ×2 (08:28→12:32)
[2022-04-20] MEDS: amLODIPine BESYLATE 5 MG TAB PO SCH (08:29)
[2022-04-20] MEDS: INSULIN ASPART PER UNIT SC SCH ×2 (09:04→12:33)
[2022-04-20] MEDS: LANTUS PER UNIT CHARGE SQ SCH (09:05)
[2022-04-20] MEDS: DICLOFENAC SOD 1% GEL 100 GM TUBE EXT SCH ×2 (09:17→12:10)
[2022-04-20] MEDS: CYCLOBENZAPRINE HCL 10 MG TAB PO PRN (10:46)
[2022-04-20] MEDS: hydrOXYzine HCl 25 MG TAB PO PRN (10:46)
--- NOTE | 2022-04-20 12:01 | Discharge Summary ---
Date of Service April 20, 2022 Admission HPI Per Admitting Provider Mariana Witt is a 56yo female presenting with redness, swelling and pain of the LLE. Patient is well known to the medical service. She was admitted to [facility] 03/08/22 - 03/16/22 with LLE cellulitis which was treated with Vancomycin and Zosyn. She returned to [facility] on 03/19/22 and was admitted with cellulitis of the LLE as well as intractable nausea/vomiting/diarrhea and abdominal pain. She was treated with Vancomycin and Ceftriaxone for MRSA cellulitis. She had tibial peroneal balloon performed by Dr. Lin on 03/27/22. Patient was discharged on Doxycycline to complete course - last day 04/04/22. Also discharged on DAPT with ASA and Plavix. Patient reports compliance with her medications. Woke this AM and didn't feel right. She had worsening throbbing pain in her left foot as well as redness and swelling. +Chills, +Nausea. Seen by PCP today for followup appointment - some concern that her blood pressure was low (possibly 98?)/ Sent to the ER for further evaluation of her foot. In the ER patient is afebrile, hypertensive, tachycardic Requesting pain medication and anti-emetics Discharge Exam Constitutional WD/WN, vitals as above Eyes + anicteric sclerae Neck trachea midline, no thyromegaly Respiratory normal respiratory effort, lungs clear to auscultation Cardiovascular RRR, no murmur, no edema Chest (Breasts) Chest: normal inspection of chest Gastrointestinal (Abdomen) normal bowel sounds, soft, nontender, no hepatosplenomegaly Musculoskeletal Extremities: + extremities abnormal to inspection (right BKA;left foot in dressing bulky not removed) Skin no rashes, warm and dry Neurologic moves all extremities and awake; no focal motor deficits Psychiatric A+Ox3, euthymic affect Orientation: alert and oriented x 3 Affect: + depressed affect Lymphatic no lymphedema Discharge Data Allergies Allergy/AdvReac Type Severity Reaction Status Date / Time morphine Allergy Severe blisters Verified 04/06/22 21:38 in mouth Sulfa (Sulfonamide Allergy Severe rash/swelli Verified 04/06/22 21:38 Antibiotics) ng iron [From Venofer] Allergy Intermediate Hypertensio Verified 04/06/22 21:38 n vancomycin Allergy Intermediate YULIYA Verified 04/06/22 21:38 SYNDROME---CAN TAKE IF VERY SLOW DRIP. amoxicillin [From Augmentin] Allergy Mild itching/power Verified 04/06/22 21:38 h clavulanic acid Allergy Mild itching/power Verified 04/06/22 21:38 [From Augmentin] h dermabond AdvReac excoriates Uncoded 04/06/22 21:40 skin Consultations 04/06/22 21:18 ED Decision to Admit Stat 04/07/22 08:19 Consult Orthopedic Surgery Routine 04/17/22 09:25 Consult Psychiatry Routine 04/18/22 07:00 Consult Infectious Diseases Routine 04/18/22 07:30 Consult Pain Management Routine Procedures Performed Operation Date: 04/14/22 08:20 Actual Procedures p Left Foot, Great Toe Subungual Abscess Incision and Drainage of Skin, Dermis and Subcutaneous Tissue, Debridement Ulcer 3 x 2 x 0.3cm; Removal of Nail Bad and Matrixectomy(Left) - Akhil Montaño DO Ordered Studies 04/10/22 12:31 MRI Foot [MR foot LT w/o con] Routine 04/18/22 US venous doppler LE LT Routine Hospital Course (1) Cellulitis of left foot: Left great toe, with abscess and ulceration. 04/14/22 - s/p: 1. Left foot great toe subungual abscess incision and drainage. 2. Removal of nail plate with matrixectomy, great toe. 3. Debridement of great toe ulcer 3.0 cm x 2.0 cm x 0.3 cm including skin, dermis, and subcutaneous tissue. by Dr Montaño. Previous culture with MRSA - was on IV vancomycin. Ceftriaxone and flagyl started 04/10. Stopped these 2 abx on 04/16. A previous culture grew diamante but suspect this was contamination thus NOT placed on anti-fungal Rx. Culture intra-op from 04/14 remains negative. Changed to PO doxy 100mg BID on 04/17 (this was [facility] recommendation during previous hospitalization). Awaiting [facility] to see in consult for final antibiotic recommendations. Consult was completed today but awaiting report to be scanned into the chart Patient [facility] up [facility] [place] - she will need this set up again closer to her discharge. Will need f/u with [facility] shortly after this discharge as well. Of note - MRI showed no osteomyelitis on 04/10. I am uncertain why this infection will not clear despite copious IV/PO abx and recent LLE PAD intervention by Dr Lin. Underlying immune system deficiency ruled out --- checked IgG and this returned normal. Previous IgM and IgA levels were wnl. 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 Likely heavy contributor. Previous smoking (quit 1 year ago) likely contributed to microvascular disease as well. (2) Opioid dependence: Used to request dilaudid IV for acute severe pain around the clock but swears that she never has withdrawal when she leaves hospital does not want to be gradually weaned off of IV Dilaudid Was started on OxyContin 10 mg p.o. twice daily by pain management-we will consider increasing this as an outpatient She has been on narcotics on monthly basis for several years per the PDMP. -Continue home prn Percocet for breakthrough pain -Continue OxyContin 10 mg p.o. twice daily -She remains on lyrica 100mg TID. (3) Anxiety: Chronic Advised psych consult - this is feeding into her severe insomnia - appreciate psych consultation-recommend weaning off Ambien, starting doxepin at bedtime or perhaps olanzapine at bedtime if QTC okay. The patient told psychiatry she did not want to go on SSRI, but as per my discussion with patient on 04/19, she is very agreeable to starting sertraline -Start sertraline 25 mg p.o. at bedtime and increase to 50 mg in 1 week -Continue Vistaril at bedtime and as needed during the day -Try to wean off lorazepam as an outpatient -Needs follow-up with [facility] outpatient therapy after discharge (4) HTN (hypertension): BPs now improved with increasing dose of Amlodipine to 5mg bid Continue Metoprolol (5) Diabetes mellitus type 2, uncontrolled: Cont basal-bolus regimen BSGs controlled at this time (6) PAD (peripheral artery disease): Chronic Continue ASA and plavix (7) Iron deficiency anemia: fecal occult blood test negative ferritin is 10 cannot tolerate IV venofer - dyspnea, BPs ariadna to >200 systolic by her report spoke with pharmacy - Injectafer ordered for her; dose will be 750mg IV x 1 to start -to receive infusion today celiac panel negative (sent this to be complete as refractory Fe deficiency can be sign of celiac disease) H/H last 2-3 days remain stable B12 level is low-normal -- supplement will also supplement thiamine 200mg BID x 1 month (8) Diarrhea: c diff negative, celiac panel negative likely abx-associated diarrhea Was improved and now returned on 04/19 imodium prn lactinex daily -Repeat C. difficile again (9) Insomnia: long-standing, refractory to numerous agents used (seroquel, ambien, trazodone, etc) psych consult appreciated-recommendations as above pt reports can't take trazodone - gives her migraines (10) Vitamin D deficiency: level 13.9 here start ergocalciferol 74072 units qweekly x 8 weeks (11) History of right below knee amputation: no issues Plan DVT proph - heparin 5000 BID Dispo-continued stay, did not have a ride home this evening-plan to discharge home tomorrow morning Discharge Plan Discharge Items Patient Disposition: Home - Self-Care Reason For Visit: LEFT FOOT PAIN Discharge Diagnosis: Left foot/toe infection, chronic pain, depression with anxiety Condition on Discharge: Fair Activity: As commented below Bathing: Keep incision dry Exercise Comment: Weight bear on heel on left with post-op shoe in place Non-emergency contact: Primary Care Provider and Surgeon Call non-emergency contact if: you have any medication questions, your symptoms worsen, your pain is not controlled, your pain is worsening, you have a fever and your temperature is above 101 Follow-up/Referrals: Akhil Montaño DO [Surgeon] - (Please follow up on/around 04/28/22. Please call for an appointment.) Vince Vernon DO [Primary Care Provider] - 04/27/22 10:00 am (Please follow up within 1-2 weeks.) Diet: Carb Consistent or DM2 and Heart Healthy Addtl Attending Provider Instructions: Please continue two antibiotics for your infection for the next 8 days. The antibiotics will be cephalexin and doxycycline. You should change your dressing daily as directed and we will make arrangements for you to get set up with the [facility]. For your pain, you were started on Oxycontin 15mg twice a day-this is to be taken on a scheduled basis to give you a baseline overall control of your pain. You can take the Percocet as needed for breakthrough pain. You were started on Vistaril for your anxiety and Zoloft for your depression with anxiety. Please take the Zoloft 25mg at bedtime x 6 more days and then increase the dose to 50mg at bedtime. If you feel worsening depression or anxiety, please let your doctor know right away. Please follow up with [facility] for therapy as planned previously. It would be beneficial for you to wean off of the lorazepam and Ambien but this needs to be done slowly under the guidance of your doctor. You were also started on various vitamins for deficiencies of B1, B12, and Vitamin D. Your blood pressure was uncontrolled and your amlodipine dose was increased to 5mg twice a day. Addtl Receiving Worker Provider Instructions: ACTIVITY RECOMMENDATIONS: * You may weight bear as tolerated on your heel using the post op shoe. SPECIAL CARE INSTRUCTIONS: * Some drainage onto the dressing is normal and is no cause for alarm. * Some swelling is natural especially after walking. When resting, keep your foot elevated above the level of your heart. * Call the doctor's office at if you notice increased drainage, fever over 101 degrees F. or severe constant pain. BANDAGE: * Leave bandage in place unless otherwise directed. * Keep bandage/cast dry at all times. FOLLOW UP VISIT: If appointment is not already scheduled: Please call [facility] to make a follow-up appointment after your surgery at . Pending Studies at Discharge: No Stand-Alone Forms: [facility], Smoking Cessation Medications and DC Order Prescriptions: New cephalexin 500 mg Capsule 500 mg PO QID 8 Days Qty: 32 0RF hydroxyzine HCl 25 mg Tablet 25 mg PO QAM Qty: 90 0RF Rx Instructions: and take 2 tabs at bedtime oxycodone 15 mg tablet 15 mg PO BID Qty: 60 0RF sertraline 50 mg Tablet 25 mg PO HS Qty: 27 0RF Rx Instructions: x 6 days then increase to 50mg at bedtime erythromycin 5 mg/gram (0.5 %) Ointment 1 applic ophthalmic (eye) [id number] 7 Days Qty: 3.5 0RF cyanocobalamin (vitamin B-12) 1,000 mcg capsule 1,000 mcg PO DAILY Qty: 30 0RF Rx Instructions: Over the counter ergocalciferol (vitamin D2) 1,250 mcg (50,000 unit) Capsule 50,000 unit PO Mo@0900 Qty: 7 0RF multivitamin with folic acid [Daily-Werner (with folic acid)] 400 mcg Tablet 1 tab PO QAM Qty: 30 0RF Rx Instructions: OTC thiamine HCl (vitamin B1) 100 mg Tablet 200 mg PO DAILY Qty: 60 0RF Rx Instructions: OTC Continued metoprolol succinate [Toprol XL] 50 mg tablet extended release 24 hr 50 mg PO QAM ropinirole 2 mg Tablet 4 mg PO HS cyclobenzaprine 10 mg tablet 10 mg PO BID PRN (Reason: Muscle Spasm) lorazepam [Ativan] 1 mg tablet 1 mg PO TID PRN (Reason: Anxiety) metoclopramide HCl 5 mg Tablet 5 mg PO AC Qty: 90 0RF oxycodone-acetaminophen [Percocet] 5-325 mg Tablet 2 tab PO Q4H PRN (Reason: moderate to severe breakthrough pain) Qty: 30 0RF zolpidem 10 mg tablet 10 mg PO HS PRN (Reason: Sleep) Rx Instructions: do not take within 3 hours of opiod pain med insulin lispro 100 unit/mL insulin pen 5 unit SUBCUT TIDM Rx Instructions: plus sliding scale insulin glargine [Lantus Solostar U-100 Insulin] 100 unit/mL (3 mL) insulin pen 20 unit SUBCUT HS ondansetron 8 mg tablet,disintegrating 8 mg translingual TID PRN (Reason: Nausea) clopidogrel 75 mg Tablet 75 mg PO QAM Qty: 30 0RF pregabalin [Lyrica] 100 mg Capsule 100 mg PO TID 30 Days Qty: 90 0RF doxycycline hyclate 100 mg Capsule 100 mg PO BID Qty: 16 0RF Changed amlodipine [Norvasc] 5 mg Tablet 5 mg PO BID 30 Days Qty: 60 0RF aspirin [Melissa Low Dose Aspirin] 81 mg Tablet,Delayed Release (Dr/Ec) 81 mg PO DAILY Qty: 30 0RF Discharge Orders: Discharge Order (Routine); Ordered 04/20/22 Ordered By: Sangeeta Ko Admission Data Admit Date/Time: 04/06/22 21:50 Attending Provider: Sangeeta Ko Admit Provider: Snehal Arciniega Primary Care Provider: Vince Vernon Other Providers: Snehal Arciniega ; Vince Morrow ; Akhil Montaño ; Kaushik Kim ; Luiza Padilla ; Ashok Davis ; Maribell Jenkins ; Rohan Carrera ; Harvinder Rushing ; Dami Rodriguez ; John Woods ; Adonis Saavedra ; Mich Song ; Brody Sanford ; Robb Guzman ; Maribell Maki ; David Vee ; Janis Tyler ; Mathew Thompson ; Eva Ramsey ; Puneet Haley ; Adriana Elizabeth ; Marie Panda ; Dulce Pugh ; Deena Sandoval ; Sylvain Melendrez ; Esthela Curtis ; Harish Arciniega I. ; Cristhian Oconnor II ; Minda Vargas ; Dami Willard ; David Banerjee Coding Diagnoses Cellulitis of left foot L03.116 Opioid dependence F11.20 Anxiety F41.9 HTN (hypertension) I10 Diabetes mellitus type 2, uncontrolled E11.65 PAD (peripheral artery disease) I73.9 Iron deficiency anemia D50.9 Diarrhea R19.7 Insomnia G47.00 Vitamin D deficiency E55.9 History of right below knee amputation Z89.511
== END 2022-04-20 15:00 | disposition home or self-care (01) | DRG 571 ==
LOC: ED 17:49 → SUATTDRO 21:50 → 3E 21:50

== ENCOUNTER 2022-04-27 06:30 | Inpatient (IN) ==
[2022-04-27] MEDS ORDERED: SODIUM CHLORIDE 0.9% 1000ML 1,000 ML IV ONE ×2 (07:04→08:38)
[2022-04-27] MEDS ORDERED: HYDROmorphone INJ 1 MG/ML SYRINGE IV STA (07:04)
[2022-04-27] MEDS ORDERED: ONDANSETRON INJ 2 MG/ML 2 ML VIAL IV STA (07:04)
--- NOTE | 2022-04-27 07:10 | Emergency Department Note ---
Impression & Plan Osteomyelitis of great toe of left foot, Nausea & vomiting, Lab test positive for detection of COVID-19 virus ED Provider Note NAME: EILEEN ESCOBAR AGE: 56 SEX: F : 1965 ARRIVES VIA: Walk-In INFORMANT: Patient, ED PROVIDER(S): Julito Garcia DO CHIEF COMPLAINT: Foot pain HPI: The patient is a 56-year-old female who presented to the emergency department for an evaluation of left foot pain. The patient was recently kendall gnosed with a MRSA infection of her left foot. She also has a history of diabetes. She has a previous right lower extremity amputation because of a similar infection. The patient states that she was seen by her orthopedic physician recently. She was placed on antibiotics but over the last 3 days she cannot keep the antibiotics down. She is had very severe nausea vomiting back pain foot pain and fever. She had an appointment with her family doctor today but instead came to the emergency department. She denies having any recent trauma. She denies having any redness or swelling of the left leg. She was in the hospital initially when this procedure took place. ROS: See above HPI for pertinent positives & negatives. A total of 10 systems reviewed and were otherwise negative. PAST MEDICAL HISTORY: See Below PAST SURGICAL HISTORY: See Below FAMILY HISTORY: See Below SOCIAL HISTORY: See Below HOME MEDICATIONS: See Below ALLERGIES: See Below VITALS: See Below PHYSICAL EXAMINATION: GENERAL: Patient is awake alert in no acute distress patient is resting co mfortably and showing no signs of anxiety EYES: The conjunctivae are clear. The pupils are round and reactive. EARS, NOSE, MOUTH AND THROAT: The nose is without any evidence of any deformity. Mucous membranes are moist. Tongue is midline. NECK: The neck is nontender and supple. RESPIRATORY: Normal respiratory effort is noted there is no evidence of wheezing rhonchi or rales CARDIOVASCULAR: Regular rate and rhythm noted there no murmurs rubs or gallops normal S1 normal S2. GASTROINTESTINAL: The abdomen is soft. Abdomen is nontender. BACK: No midline tenderness or or step-off noted range of motion in flexion extension as well as rotation no signs of muscle spasm noted MUSCULOSKELETAL/EXTREMITIES: There is no evidence of gross deformity full range of motion is noted in the hips and shoulders. Right lower extremity below-knee amputation was appreciated. SKIN: There is an ulceration under the left great toe. There is no erythema drainage or dehiscence of the surgical sites. Range of motion does appear to be associated with pain. NEUROLOGIC: Patient is awake alert and oriented x3 MEDICAL DECISION MAKING: The patient is a 56-year-old female who presented to the emergency department for an evaluation of a left foot infection. The patient has a history of MRSA and a wound in her left foot. She is being managed by orthopedic surgery. Over the last few days she has noticed problems with nausea and vomiting. She has been unable to keep her medications down because of nausea vomiting. This reason she presented to the emergency department. She also had a reported fever. The patient was treated with IV fluids and IV pain medication as well as IV antiemetics. She was also given IV antibiotics. She was reevaluated multiple times. And still has significant pain. She states she cannot take the medications at home so I discussed her case with the on-call [facility] hospitalist. They have agreed to evaluate the patient in the emergency department. Triage Nursing notes reviewed. Prior medical records reviewed Vital Signs: reviewed and remarkable for elevated blood pressure. Differential diagnosis: Gastroenteritis, food borne illness, infections, appendicitis, diverticulitis, inflammatory bowel disease, obstruction, GI bleed, biliary pathology, volvulus, as well as other pathologies. ER treatment provided: See below Diagnostics interpreted by me: ECG: Obtained in the emergency department. My interpretation is normal sinus rhythm at 97 bpm. There is no ectopy. There is no acute ST segment abnormalities noted. This was compared to a tracing from April 01, 2022. No changes were noted. Cardiac Monitoring: An order was placed for continuous cardiac monitoring. The monitor shows a rate of 93 bpm with sinus rhythm. Laboratory studies: As stated above and show below. Imaging studies: See below Consultation(s): Case with Dr. Whaley who is on-call for the [facility]. Past Med/Surg History Medical History Acidosis, lactic Acute dehydration 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 No issues per anesthesia postop progress note. Anemia Cellulitis Chronic back pain Chronic pain syndrome Depression Diabetic peripheral neuropathy DM2 (diabetes mellitus, type 2) IDDM, A1c 07/2021-11% Gastritis Gastroenteritis GIB (gastrointestinal bleeding) History of amputation of great toe Hyperlipidemia Insulin dependent diabetes mellitus Iron deficiency anemia Nonobstructive atherosclerosis of coronary artery Numbness of lower extremity Opiate abuse, continuous Opiate dependence Peripheral neuropathy Right second toe ulcer Seizures Sepsis Surgical History History of cardiac cath done at [facility]; 09/22/19; LM - mild luminal irregularities. LAD - mid 20-30%, distal with myocardial bridge & 30% stenosis. L Cx - mild luminal irregularities. RCA - proximal <30% stenosis; mid/distal vessel mild plaques. PDA - mild luminal irregularities. History of esophagogastroduodenoscopy (EGD) History of right below knee amputation (12/22/21) Right Below Knee Amputation(Right) - Davon Good MD, FACS Family History Mother , age 63 Myocardial infarction Father , age 68 or 69 Myocardial infarction Brother S/P CABG (coronary artery bypass graft) Sister Myocardial infarction x 3; she is 57yo Social History Smoking Status: Former smoker Tobacco Type: Cigarettes packs per day: 0.5; Years Smoked: 20; Cigarettes Per Day: 20; Second Hand Exposure: No; Hx Alcohol Use: No Hx Substance Use: Yes Prescribed Medications: Marijuana Last Used Substance: Days (ago) Last Used Substance Other:: 2 days ago Substance Use Type Other:: medical marijuana Preferred Language: Stateless Communication Ability: Effective Visual Impairment: No Limitations Hearing Ability: Normal Assistant Office Manager Required: No Beliefs That Will Affect Care: None marital status: Current Living Situation: Spouse current occupational status: unemployed 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 other: raising a grandchild as well; lives in [place] Feels Safe at Home: Yes during the past year weight has: remained stable Assistive Devices: Walker and Wheelchair Allergies Allergies Allergy/AdvReac Type Severity Reaction Status Date / Time morphine Allergy Severe blisters Verified 04/06/22 21:38 in mouth Sulfa (Sulfonamide Allergy Severe rash/swelli Verified 04/06/22 21:38 Antibiotics) ng iron [From Venofer] Allergy Intermediate Hypertensio Verified 04/06/22 21:38 n vancomycin Allergy Intermediate YULIYA Verified 04/06/22 21:38 SYNDROME---CAN TAKE IF VERY SLOW DRIP. amoxicillin [From Augmentin] Allergy Mild itching/power Verified 04/06/22 21:38 h clavulanic acid Allergy Mild itching/power Verified 04/06/22 21:38 [From Augmentin] h dermabond AdvReac excoriates Uncoded 04/06/22 21:40 skin Home Meds Home Medications Medication Instructions Recorded Confirmed ropinirole 2 mg tablet 4 mg PO HS 10/19/20 04/06/22 metoprolol succinate 50 mg 50 mg PO QAM 03/05/21 04/06/22 tablet,extended release 24 hr (Toprol XL) lorazepam 1 mg tablet (Ativan) 1 mg PO TID PRN Anxiety 11/04/21 04/06/22 cyclobenzaprine 10 mg tablet 10 mg PO BID PRN Muscle Spasm 11/24/21 04/06/22 insulin glargine 100 unit/mL (3 20 unit subcut HS 03/08/22 04/06/22 mL) subcutaneous pen (Lantus Solostar U-100 Insulin) insulin lispro 100 unit/mL 5 unit subcut TIDM 03/08/22 04/06/22 subcutaneous pen ondansetron 8 mg disintegrating 8 mg translingual TID PRN Nausea 03/08/22 04/06/22 tablet zolpidem 10 mg tablet 10 mg PO HS PRN Sleep 03/08/22 04/06/22 Previous Rx's Medication Instructions Recorded metoclopramide HCl 5 mg tablet 5 mg PO AC #90 tabs 12/26/21 oxycodone-acetaminophen 5 mg-325 2 tab PO Q4H PRN moderate to 12/26/21 mg tablet (Percocet) severe breakthrough pain #30 tabs clopidogrel 75 mg tablet 75 mg PO QAM #30 tabs 03/30/22 pregabalin 100 mg capsule (Lyrica) 100 mg PO TID 30 days #90 caps 03/30/22 aspirin 81 mg tablet,delayed 81 mg PO DAILY #30 tabs 04/20/22 release (Melissa Low Dose Aspirin) cephalexin 500 mg capsule 500 mg PO QID 8 days #32 caps 04/20/22 cyanocobalamin (vitamin B-12) 1,000 mcg PO DAILY #30 caps 04/20/22 1,000 mcg capsule doxycycline hyclate 100 mg capsule 100 mg PO BID #16 caps 04/20/22 ergocalciferol (vitamin D2) 1,250 50,000 unit PO Mo@0900 #7 caps 04/20/22 mcg (50,000 unit) capsule hydroxyzine HCl 25 mg tablet 25 mg PO QAM #90 tabs 04/20/22 multivitamin with folic acid 400 1 tab PO QAM #30 tabs 04/20/22 mcg tablet (Daily-Werner (with folic acid)) oxycodone 15 mg tablet 15 mg PO BID #60 tabs 04/20/22 sertraline 50 mg tablet 25 mg PO HS #27 tabs 04/20/22 thiamine HCl (vitamin B1) 100 mg 200 mg PO DAILY #60 tabs 04/20/22 tablet Results & Data (ED) Vital Signs Vital Signs - 24 hr 04/27/22 06:32 04/27/22 07:27 04/27/22 07:28 Temperature 36.7 C 37.0 C Temperature Source Temporal Artery Scan Oral Pulse Rate 101 H Pulse Rate from SpO2 Sensor Respiratory Rate 20 18 Respiratory Effort / Characteristics Non-Labored Spontaneous Non-Labored Respiratory Depth Normal Normal Respiratory Pattern Regular Blood Pressure 163/76 H Blood Pressure Mean 105 Pulse Oximetry 98 98 98 Oxygen Delivery Method Room Air Room Air Room Air Sepsis New/Unexplained Change in Mental Status N/A Sepsis Action Taken by Nursing No Action Required 04/27/22 07:28 04/27/22 07:34 04/27/22 08:04 Temperature Temperature Source Pulse Rate Pulse Rate from SpO2 Sensor Respiratory Rate 19 18 Respiratory Effort / Characteristics Non-Labored Non-Labored Non-Labored Respiratory Depth Respiratory Pattern Blood Pressure Blood Pressure Mean Pulse Oximetry 98 95 97 Oxygen Delivery Method Room Air Room Air Room Air Sepsis New/Unexplained Change in Mental Status Sepsis Action Taken by Nursing 04/27/22 08:34 04/27/22 07:37 04/27/22 08:00 Temperature Temperature Source Pulse Rate 98 H Pulse Rate from SpO2 Sensor 98 H Respiratory Rate 17 17 Respiratory Effort / Characteristics Non-Labored Respiratory Depth Respiratory Pattern Blood Pressure 166/94 H 196/98 H Blood Pressure Mean 118 130 Pulse Oximetry 96 98 92 Oxygen Delivery Method Room Air Room Air Room Air Sepsis New/Unexplained Change in Mental Status Sepsis Action Taken by Shelter Medications Current Medication List: was personally reviewed by me Laboratory Data Attestation: I reviewed the patient's lab results. Result diagrams: 04/27/22 07:37 04/27/22 07:37 Lab Results 04/27/22 04/27/22 04/27/22 Range/Units 07:17 07:37 07:37 WBC 10.71 (4.8-10.8) K/ul RBC 4.74 (3.93-5.22) M/uL Hgb 11.4 L (12.0-16.0) g/dl Hct 36.3 (34.1-44.9) % MCV 76.6 L (80.0-100.0) fL MCH 24.1 L (25.0-34.0) pg MCHC 31.4 L (32.0-36.0) g/dL RDW Std Deviation 54.7 H (36.4-46.3) fL RDW Coeff of Maria Del Carmen 20.1 H (11.5-14.5) % Plt Count 221 (130-400) K/uL MPV 9.8 (9.4-12.3) fL Immature Gran % (Auto) 0.7 % Neut % (Auto) 79.6 % Lymph % (Auto) 10.0 % Cowley % (Auto) 9.2 % Eos % (Auto) 0.0 % Baso % (Auto) 0.5 % Neut # (Auto) 8.53 H (1.4-6.5) K/uL Lymph # (Auto) 1.07 L (1.2-3.4) K/uL Cowley # (Auto) 0.98 H (0.24-0.82) K/uL Eos # (Auto) 0.00 (0-0.50) K/uL Baso # (Auto) 0.05 (0-0.2) K/uL Immature Gran # (Auto) 0.08 H (0.00-0.02) K/uL Polychromasia 1+ ESR 42 H (0-30) mm/hr PT (9.0-12.0) Seconds INR (0.9-1.1) APTT (21.0-31.0) Seconds PTT Ratio Sodium (136-145) mmol/L Potassium (3.5-5.1) mmol/L Chloride (98-107) mmol/L Carbon Dioxide (21-32) mmol/L Anion Gap (3-11) BUN (6-23) mg/dl Creatinine (0.6-1.2) mg/dl Est Cr Clr Drug Dosing Est GFR ( Amer) ml/min Est GFR (Non-Af Amer) ml/min BUN/Creatinine Ratio (10-20) Glucose (70-99(Fasting)) mg/dl Lactate (0.4-2.0) mmol/L Calcium (8.5-10.1) mg/dl Magnesium (1.7-2.4) mg/dl Total Bilirubin (0.2-1.0) mg/dl AST (13-39) U/L ALT (7-52) U/L Alkaline Phosphatase (34-104) U/L Troponin I High Sens (0-14) pg/ml C-Reactive Protein (0-0.5) mg/dl Total Protein (6.0-8.3) gm/dl Albumin (3.4-5.0) gm/dl Globulin (2.5-4.0) gm/dl Albumin/Globulin Ratio (0.9-2) Procalcitonin (0-0.5) ng/ml SARS-CoV-2, RNA, NAAT POSITIVE A* (NEGATIVE) 04/27/22 04/27/22 04/27/22 Range/Units 07:37 07:37 07:37 WBC (4.8-10.8) K/ul RBC (3.93-5.22) M/uL Hgb (12.0-16.0) g/dl Hct (34.1-44.9) % MCV (80.0-100.0) fL MCH (25.0-34.0) pg MCHC (32.0-36.0) g/dL RDW Std Deviation (36.4-46.3) fL RDW Coeff of Maria Del Carmen (11.5-14.5) % Plt Count (130-400) K/uL MPV (9.4-12.3) fL Immature Gran % (Auto) % Neut % (Auto) % Lymph % (Auto) % Cowley % (Auto) % Eos % (Auto) % Baso % (Auto) % Neut # (Auto) (1.4-6.5) K/uL Lymph # (Auto) (1.2-3.4) K/uL Cowley # (Auto) (0.24-0.82) K/uL Eos # (Auto) (0-0.50) K/uL Baso # (Auto) (0-0.2) K/uL Immature Gran # (Auto) (0.00-0.02) K/uL Polychromasia ESR (0-30) mm/hr PT 10.5 (9.0-12.0) Seconds INR 1.0 (0.9-1.1) APTT 24.2 (21.0-31.0) Seconds PTT Ratio 0.9 Sodium 130 L (136-145) mmol/L Potassium 4.0 (3.5-5.1) mmol/L Chloride 94 L (98-107) mmol/L Carbon Dioxide 27 (21-32) mmol/L Anion Gap 9 (3-11) BUN 10 (6-23) mg/dl Creatinine 0.54 L (0.6-1.2) mg/dl Est Cr Clr Drug Dosing Not Reportable Est GFR ( Amer) 121.4 ml/min Est GFR (Non-Af Amer) 104.8 ml/min BUN/Creatinine Ratio 18.5 (10-20) Glucose 265 H (70-99(Fasting)) mg/dl Lactate 1.3 (0.4-2.0) mmol/L Calcium 9.5 (8.5-10.1) mg/dl Magnesium 1.7 (1.7-2.4) mg/dl Total Bilirubin 0.4 (0.2-1.0) mg/dl AST 19 (13-39) U/L ALT 25 (7-52) U/L Alkaline Phosphatase 81 (34-104) U/L Troponin I High Sens 6.2 (0-14) pg/ml C-Reactive Protein < 0.50 (0-0.5) mg/dl Total Protein 8.0 (6.0-8.3) gm/dl Albumin 5.0 (3.4-5.0) gm/dl Globulin 3.0 (2.5-4.0) gm/dl Albumin/Globulin Ratio 1.7 (0.9-2) Procalcitonin (0-0.5) ng/ml SARS-CoV-2, RNA, NAAT (NEGATIVE) 04/27/22 Range/Units 07:37 WBC (4.8-10.8) K/ul RBC (3.93-5.22) M/uL Hgb (12.0-16.0) g/dl Hct (34.1-44.9) % MCV (80.0-100.0) fL MCH (25.0-34.0) pg MCHC (32.0-36.0) g/dL RDW Std Deviation (36.4-46.3) fL RDW Coeff of Maria Del Carmen (11.5-14.5) % Plt Count (130-400) K/uL MPV (9.4-12.3) fL Immature Gran % (Auto) % Neut % (Auto) % Lymph % (Auto) % Cowley % (Auto) % Eos % (Auto) % Baso % (Auto) % Neut # (Auto) (1.4-6.5) K/uL Lymph # (Auto) (1.2-3.4) K/uL Cowley # (Auto) (0.24-0.82) K/uL Eos # (Auto) (0-0.50) K/uL Baso # (Auto) (0-0.2) K/uL Immature Gran # (Auto) (0.00-0.02) K/uL Polychromasia ESR (0-30) mm/hr PT (9.0-12.0) Seconds INR (0.9-1.1) APTT (21.0-31.0) Seconds PTT Ratio Sodium (136-145) mmol/L Potassium (3.5-5.1) mmol/L Chloride (98-107) mmol/L Carbon Dioxide (21-32) mmol/L Anion Gap (3-11) BUN (6-23) mg/dl Creatinine (0.6-1.2) mg/dl Est Cr Clr Drug Dosing Est GFR ( Amer) ml/min Est GFR (Non-Af Amer) ml/min BUN/Creatinine Ratio (10-20) Glucose (70-99(Fasting)) mg/dl Lactate (0.4-2.0) mmol/L Calcium (8.5-10.1) mg/dl Magnesium (1.7-2.4) mg/dl Total Bilirubin (0.2-1.0) mg/dl AST (13-39) U/L ALT (7-52) U/L Alkaline Phosphatase (34-104) U/L Troponin I High Sens (0-14) pg/ml C-Reactive Protein (0-0.5) mg/dl Total Protein (6.0-8.3) gm/dl Albumin (3.4-5.0) gm/dl Globulin (2.5-4.0) gm/dl Albumin/Globulin Ratio (0.9-2) Procalcitonin < 0.05 (0-0.5) ng/ml SARS-CoV-2, RNA, NAAT (NEGATIVE) Administered Medications Discontinued Medications Hydromorphone HCl (Hydromorphone Inj 1 Mg/Ml Syringe) 1 mg IV NOW STA Stop: 04/27/22 07:05 Last Admin: 04/27/22 07:38 Dose: 1 mg Documented By: KENYA Sodium Chloride (Nss 1000ml) 1,000 mls @ 999 mls/hr IV .Q1H1M ONE Stop: 04/27/22 08:04 Last Infusion: 04/27/22 09:57 Dose: 0 mls/hr Documented By: Admin: 04/27/22 07:43 Dose: 999 mls/hr Documented By: KENYA Daptomycin 300 mg/ Syringe 6 mls @ 3 mls/min IV ONE ONE; Protocol Stop: 04/27/22 08:18 Last Admin: 04/27/22 09:10 Dose: 3 mls/min Documented By: [place] Sodium Chloride (Nss 1000ml) 1,000 mls @ 999 mls/hr IV .Q1H1M ONE Stop: 04/27/22 09:38 Last Infusion: 04/27/22 09:57 Dose: 0 mls/hr Documented By: Admin: 04/27/22 09:10 Dose: 999 mls/hr Documented By: KY Promethazine HCl 12.5 mg/ (Sodium Chloride) 50.5 mls @ 202 mls/hr IV NOW STA Stop: 04/27/22 08:52 Last Infusion: 04/27/22 09:57 Dose: 0 mls/hr Documented By: Admin: 04/27/22 09:10 Dose: 202 mls/hr Documented By: KENYA Ondansetron HCl (Ondansetron Inj 2 Mg/Ml 2 Ml Vial) 4 mg IV NOW STA Stop: 04/27/22 07:05 Last Admin: 04/27/22 07:38 Dose: 4 mg Documented By: KENYA Imaging Data Radiologist's Impression: Chest X-Ray 04/27/22 07:04 XR chest 1V portable CLINICAL HISTORY: SEPSIS COMPARISON STUDY: Chest radiograph and chest CT January 11, 2022. FINDINGS: Lung volumes are normal. Lungs are clear. There is no pneumothorax. Possible trace bilateral pleural effusions. Cardiac size is normal. Mediastinal contours are normal. There is pulmonary vascular congestion. IMPRESSION: Pulmonary vascular congestion without overt pulmonary edema. Trace bilateral pleural effusions. ACT 112: Negative or not required by law. Electronically signed by: Wilver Powell M.D. 04/27/2022 8:01 AM Foot X-Ray 04/27/22 07:04 XR foot LT min 3V routine CLINICAL HISTORY: infection COMPARISON: Left foot radiographs April 06, 2022. MRI of the left foot April 10, 2022. FINDINGS: Alignment of the left foot is anatomic. Tarsometatarsal joints are intact. No acute fracture is identified. Apparent slight indistinctness of the distal tuft of the distal phalanx of the left first toe is noted. This is probably artifactual. No definite radiographic evidence for acute osteomyelitis. IMPRESSION: 1. No acute fracture or dislocation within the left foot. 2. Apparent slight indistinctness of the distal tuft of the distal phalanx of the left first toe. This is likely artifactual. Although less likely, osteomyelitis cannot be completely excluded. ACT 112: Negative or not required by law. Electronically signed by: Wilver Powell M.D. 04/27/2022 8:08 AM KUB X-Ray 04/27/22 07:04 KUB HISTORY: Acute sepsis with nausea and vomiting vomiting COMPARISON: CT abdomen and pelvis 03/19/2022. FINDINGS: Cholecystectomy. Moderate fecal retention with nonobstructive bowel gas pattern. Obscuration of the renal shadows. The patient's known tiny right renal calculus is not identified. Pelvic basin phleboliths are redemonstrated. No pneumoperitoneum or pneumatosis. Lower lumbar spinal fusion hardware. Degenerative changes of the spine, pelvis and hips. No fracture. IMPRESSION: 1. Moderate fecal retention with nonobstructive bowel gas pattern. 2. The patient's known right renal calculus is obscured by bowel gas. ACT 112: Negative or not required by law. The above report was generated using voice recognition software. It may contain grammatical, syntax or spelling errors. Electronically signed by: Puneet Howard M.D. 04/27/2022 8:08 AM Discharge Plan Visit Data Chief Complaint: Vomiting Stated Complaint: VOMITING, CANNOT HOLD DOWN ANTIBIOTICS ED Provider: Julito Garcia Discharge Problem: Osteomyelitis of great toe of left foot, Nausea & vomiting, Lab test positive for detection of COVID-19 virus Patient Disposition: Being Evaluated by Hospitalist
[2022-04-27 07:53] LABS: Basophils # (auto) 0.05 K/uL (0-0.2); Basophils % (auto) 0.5 %; Hematocrit (blood only) 36.3 % (34.1-44.9); Hemoglobin 11.4 g/dl (12.0-16.0); Immature Granulocytes # (auto) 0.08 K/uL (0.00-0.02); Immature Granulocytes % (auto) 0.7 %; Lymphocytes # (auto) 1.07 K/uL (1.2-3.4); Mean Corpuscular Hemoglobin 24.1 pg (25.0-34.0); Mean Corpuscular Hgb Conc 31.4 g/dL (32.0-36.0); Mean Corpuscular Volume 76.6 fL (80.0-100.0); Mean Platelet Volume 9.8 fL (9.4-12.3); Monocytes # (auto) 0.98 K/uL (0.24-0.82); Monocytes % (auto) 9.2 %; Neutrophils # (auto) 8.53 K/uL (1.4-6.5); Neutrophils % (auto) 79.6 %; Platelet Count 221 K/uL (130-400); RDW Coefficient of Variation 20.1 % (11.5-14.5); RDW Standard Deviation 54.7 fL (36.4-46.3); Red Blood Count 4.74 M/uL (3.93-5.22); White Blood Count 10.71 K/ul (4.8-10.8)
--- NOTE | 2022-04-27 08:03 | XRay Report ---
XR chest 1V portable CLINICAL HISTORY: SEPSIS COMPARISON STUDY: Chest radiograph and chest CT January 11, 2022. FINDINGS: Lung volumes are normal. Lungs are clear. There is no pneumothorax. Possible trace bilatera l pleural effusions. Cardiac size is normal. Mediastinal contours are normal. There is pulmonary vasc ular congestion. IMPRESSION: Pulmonary vascular congestion without overt pulmonary edema. Trace bilateral pleural eff usions. ACT 112: Negative or not required by law. Electronically signed by: Wilver Powell M.D. 04/27/2022 8:01 AM
[2022-04-27 08:04] LABS: Partial Thromboplastin Ratio 0.9; Partial Thromboplastin Time 24.2 Seconds (21.0-31.0); Prothrombin Time 10.5 Seconds (9.0-12.0)
--- NOTE | 2022-04-27 08:09 | XRay Report ---
KUB HISTORY: Acute sepsis with nausea and vomiting vomiting COMPARISON: CT abdomen and pelvis 03/19/2022. FINDINGS: Cholecystectomy. Moderate fecal retention with nonobstructive bowel gas pattern. Obscuratio n of the renal shadows. The patient's known tiny right renal calculus is not identified. Pelvic basi n phleboliths are redemonstrated. No pneumoperitoneum or pneumatosis. Lower lumbar spinal fusion hard huerta. Degenerative changes of the spine, pelvis and hips. No fracture. IMPRESSION: 1. Moderate fecal retention with nonobstructive bowel gas pattern. 2. The patient's known right renal calculus is obscured by bowel gas. ACT 112: Negative or not required by law. The above report was generated using voice recognition software. It may contain grammatical, syntax o r spelling errors. Electronically signed by: Puneet Howard M.D. 04/27/2022 8:08 AM
--- NOTE | 2022-04-27 08:10 | XRay Report ---
XR foot LT min 3V routine CLINICAL HISTORY: infection COMPARISON: Left foot radiographs April 06, 2022. MRI of the left foot April 10, 2022. FINDINGS: Alignment of the left foot is anatomic. Tarsometatarsal joints are intact. No acute fractu re is identified. Apparent slight indistinctness of the distal tuft of the distal phalanx of the left first toe is noted. This is probably artifactual. No definite radiographic evidence for acute osteom yelitis. IMPRESSION: 1. No acute fracture or dislocation within the left foot. 2. Apparent slight indistinctness of the distal tuft of the distal phalanx of the left first toe. Thi s is likely artifactual. Although less likely, osteomyelitis cannot be completely excluded. ACT 112: Negative or not required by law. Electronically signed by: Wilver Powell M.D. 04/27/2022 8:08 AM
[2022-04-27 08:14] LABS: Alanine Aminotransferase 25 U/L (7-52); Albumin Globulin Ratio 1.7 (0.9-2); Alkaline Phosphatase 81 U/L (34-104); Anion Gap 9 (3-11); Aspartate Aminotransferase 19 U/L (13-39); BUN Creatinine Ratio 18.5 (10-20); Bilirubin,Total 0.4 mg/dl (0.2-1.0); Blood Urea Nitrogen 10 mg/dl (6-23); C Reactive Protein < 0.50 mg/dl (0-0.5); Calcium 9.5 mg/dl (8.5-10.1); Carbon Dioxide 27 mmol/L (21-32); Chloride 94 mmol/L (98-107); Est GFR (African American) 121.4 ml/min; Est GFR (Non-African American) 104.8 ml/min; Glucose 265 mg/dl (70-99(Fasting)); Magnesium 1.7 mg/dl (1.7-2.4); Sodium 130 mmol/L (136-145)
[2022-04-27 08:17] LABS: Troponin I High Sensitivity 6.2 pg/ml (0-14)
[2022-04-27] MEDS ORDERED: DAPTOmycin 300 MG in SYRINGE 0 ML IV ONE (08:17)
[2022-04-27 08:19] LABS: Polychromasia 1+
[2022-04-27] MEDS ORDERED: PROMETHAZINE HCL 12.5 MG in SODIUM CHLORIDE 0.9% 50 ML IV STA (08:38)
[2022-04-27 10:00] LABS: Appearance Urine Clear (Clear); Bacteria Urine Automated Negative (Negative); Bilirubin Urine Negative (Negative); Blood Urine Negative (Negative); Color Urine Yellow; Epithelial Cell Urine Auto >30 /lpf (0-5); Glucose Urine UA 2+ (Negative); Ketones Urine Negative (Negative); Leukocyte Esterase Urine Negative (Negative); Nitrite Urine Negative (Negative); Protein Urine 2+ (Negative); RBC Urine Automated 0-4 /hpf (0-4); Specific Gravity Urine 1.022 (1.000-1.030); Urobilinogen Urine Negative (Negative)
[2022-04-27] MEDS ORDERED: POLYETHYLENE (MIRALAX) 17 GM PACK PO PRN (11:46)
[2022-04-27] MEDS ORDERED: PROMETHAZINE HCL INJ 25 MG/ML 1 ML VIAL IM PRN (11:46)
[2022-04-27] MEDS ORDERED: ALUMINUM/MAGNESIUM SUSP 30 ML UDC PO PRN (11:46)
[2022-04-27] MEDS ORDERED: CYCLOBENZAPRINE HCL 10 MG TAB PO PRN (11:46)
[2022-04-27] MEDS ORDERED: ACETAMINOPHEN 325 MG TAB PO PRN (11:46)
[2022-04-27] MEDS ORDERED: MAGNESIUM HYDROXIDE SUSP 30 ML UDC PO PRN (11:46)
[2022-04-27] MEDS: HYDROmorphone INJ 1 MG/ML SYRINGE IV PRN ×2 (12:13→16:49)
[2022-04-27] MEDS: ONDANSETRON INJ 2 MG/ML 2 ML VIAL IV SCH ×2 (12:13→17:15)
[2022-04-27] MEDS ORDERED: METOCLOPRAMIDE HCL 5 MG TABLET PO STA (12:15)
[2022-04-27] MEDS ORDERED: CYANOCOBALAMIN (B-12) 500 MCG TABLET PO SCH (12:15)
[2022-04-27] MEDS ORDERED: ALUMINUM/MAGNESIUM/SIMETH (MAALOX MAX) 30 ML UDC PO STA (12:16)
[2022-04-27] MEDS ORDERED: FUROSEMIDE 40 MG/4 ML VIAL IV ONE (13:50)
[2022-04-27] MEDS: Patient's HEIGHT &/or WEIGHT Needed SCH ×2 (14:03→14:42)
[2022-04-27] MEDS: ASPIRIN 81 MG ECTAB PO SCH (14:16)
[2022-04-27] MEDS: PREGABALIN 100 MG CAP PO SCH ×2 (14:16→21:15)
[2022-04-27] MEDS: oxyCODONE HCL IR 5 MG TAB (IMMEDIATE RELEASE) PO SCH ×2 (14:16→21:15)
[2022-04-27] MEDS: METOPROLOL SUCC 50MG EXT REL TAB PO SCH (14:17)
[2022-04-27] MEDS: THIAMINE HCL 100 MG TAB PO SCH (14:17)
[2022-04-27] MEDS: CLOPIDOGREL BISULFATE 75 MG TAB PO SCH (14:17)
[2022-04-27] MEDS: hydrOXYzine HCl 25 MG TAB PO SCH (14:17)
[2022-04-27] MEDS: MULTIVITAMIN TAB PO SCH (14:18)
[2022-04-27] MEDS: INSULIN ASPART PER UNIT SC SCH ×3 (14:44→21:16)
[2022-04-27] MEDS: PANTOprazole 40 MG in SYRINGE 0 ML IV SCH ×2 (15:10→21:16)
[2022-04-27] MEDS: FAMOTIDINE 20 MG in SYRINGE 3 ML IV SCH ×2 (15:10→21:16)
[2022-04-27] MEDS: ENOXAPARIN INJ 40 MG/0.4 ML SYR SQ SCH (15:11)
[2022-04-27] MEDS: ALUMINUM/MAGNESIUM/SIMETH (MAALOX MAX) 30 ML UDC PO SCH (16:49)
[2022-04-27] MEDS: METOCLOPRAMIDE HCL 5 MG TABLET PO SCH (17:15)
--- NOTE | 2022-04-27 17:49 | History & Physical Report ---
Date of Service April 27, 2022 Assessment & Plan (1) COVID-19: Plan: Appears that intractable nausea and vomiting is likely GI symptoms related to COVID-19 infection. No real dyspneadid have a little bit of heavy breathingand to that end given chest x-ray with a degree of fluidLasix. At the same time, other than 1 (apparently erroneous) reading, she has not had any hypoxia, no cough no dyspnea/etc.i.e. there is no clear need for corticosteroids or other immunosuppressive's. With her cardinal symptoms being nausea and vomiting and she does not have any significant respiratory symptoms, and she is several days into illness, not certain she will have much benefit with remdesivir. Supportive care, manage nausea and vomiting, serial exams. (2) Osteomyelitis of great toe of left foot: Plan: dapto - will likely want f/u imaging but while on abx no need to image urgently, no urgent surgical indication - treat above, allow symptoms to improve then w/u further. pain control w home regimen plus acutely IV diluaded (3) Diabetes mellitus type 2, uncontrolled: Plan: basal bolus insulin (4) HTN (hypertension): Plan: BP reasonable, follow (5) Anemia: Plan: Hgb acceptable, follow (6) Hyperlipidemia: (7) Hyponatremia: Plan: follow, hopefully will improve w better PO intake (8) DVT prophylaxis: Plan: lovenox (9) Discharge planning issues: Plan: admit to [facility] hospitalists, anticipate ability to dc home Admission and Anticipated Discharge Date Admission Date: April 27, 2022 History of Present Illness Chief Complaint: Intractable nausea and vomiting Primary Care Provider: Vince Vernon DO 56-year-old female discharged about a week ago after foot infection, notes that at home her foot pain was still fairly severe but seems to been improving. She was tolerating doxycycline well. About 3 days ago started with intractable nausea and vomiting. She was not able to keep down food or drink, not able to keep down her medicines. Tried to manage at home for a few days, and then today with no and insight with her GI symptoms, she came to the hospital for further evaluation. She also notes her left toe throbs "it has a heartbeat" and the pain is fairly severe, although it is better than it was postop. Allergies Allergy/AdvReac Type Severity Reaction Status Date / Time morphine Allergy Severe blisters Verified 04/06/22 21:38 in mouth Sulfa (Sulfonamide Allergy Severe rash/swelli Verified 04/06/22 21:38 Antibiotics) ng iron [From Venofer] Allergy Intermediate Hypertensio Verified 04/06/22 21:38 n vancomycin Allergy Intermediate YULIYA Verified 04/06/22 21:38 SYNDROME---CAN TAKE IF VERY SLOW DRIP. amoxicillin [From Augmentin] Allergy Mild itching/power Verified 04/06/22 21:38 h clavulanic acid Allergy Mild itching/power Verified 04/06/22 21:38 [From Augmentin] h dermabond AdvReac excoriates Uncoded 04/06/22 21:40 skin Home Medications Medication Instructions Recorded Confirmed Type ropinirole 2 mg tablet 4 mg PO HS 10/19/20 04/06/22 History metoprolol succinate 50 mg 50 mg PO QAM 03/05/21 04/06/22 History tablet,extended release 24 hr (Toprol XL) lorazepam 1 mg tablet (Ativan) 1 mg PO TID PRN Anxiety 11/04/21 04/06/22 History cyclobenzaprine 10 mg tablet 10 mg PO BID PRN Muscle Spasm 11/24/21 04/06/22 History metoclopramide HCl 5 mg tablet 5 mg PO AC #90 tabs 12/26/21 04/06/22 Rx oxycodone-acetaminophen 5 mg-325 2 tab PO Q4H PRN moderate to 12/26/21 04/06/22 Rx mg tablet (Percocet) severe breakthrough pain #30 tabs insulin glargine 100 unit/mL (3 20 unit subcut HS 03/08/22 04/06/22 History mL) subcutaneous pen (Lantus Solostar U-100 Insulin) insulin lispro 100 unit/mL 5 unit subcut TIDM 03/08/22 04/06/22 History subcutaneous pen ondansetron 8 mg disintegrating 8 mg translingual TID PRN Nausea 03/08/22 04/06/22 History tablet zolpidem 10 mg tablet 10 mg PO HS PRN Sleep 03/08/22 04/06/22 History clopidogrel 75 mg tablet 75 mg PO QAM #30 tabs 03/30/22 04/06/22 Rx pregabalin 100 mg capsule (Lyrica) 100 mg PO TID 30 days #90 caps 03/30/22 04/06/22 Rx aspirin 81 mg tablet,delayed 81 mg PO DAILY #30 tabs 04/20/22 04/07/22 Rx release (Melissa Low Dose Aspirin) cephalexin 500 mg capsule 500 mg PO QID 8 days #32 caps 04/20/22 Rx cyanocobalamin (vitamin B-12) 1,000 mcg PO DAILY #30 caps 04/20/22 Rx 1,000 mcg capsule doxycycline hyclate 100 mg capsule 100 mg PO BID #16 caps 04/20/22 Rx ergocalciferol (vitamin D2) 1,250 50,000 unit PO Mo@0900 #7 caps 04/20/22 Rx mcg (50,000 unit) capsule hydroxyzine HCl 25 mg tablet 25 mg PO QAM #90 tabs 04/20/22 Rx multivitamin with folic acid 400 1 tab PO QAM #30 tabs 04/20/22 Rx mcg tablet (Daily-Werner (with folic acid)) oxycodone 15 mg tablet 15 mg PO BID #60 tabs 04/20/22 Rx sertraline 50 mg tablet 25 mg PO HS #27 tabs 04/20/22 Rx thiamine HCl (vitamin B1) 100 mg 200 mg PO DAILY #60 tabs 04/20/22 Rx tablet Past Med/Surg History Medical History Acidosis, lactic Acute dehydration 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 No issues per anesthesia postop progress note. Anemia Cellulitis Chronic back pain Chronic pain syndrome Depression Diabetic peripheral neuropathy DM2 (diabetes mellitus, type 2) IDDM, A1c 07/2021-11% Gastritis Gastroenteritis GIB (gastrointestinal bleeding) History of amputation of great toe Hyperlipidemia Insulin dependent diabetes mellitus Iron deficiency anemia Nonobstructive atherosclerosis of coronary artery Numbness of lower extremity Opiate abuse, continuous Opiate dependence Peripheral neuropathy Right second toe ulcer Seizures Sepsis Surgical History History of cardiac cath done at [facility]; 09/22/19; LM - mild luminal irregularities. LAD - mid 20-30%, distal with myocardial bridge & 30% stenosis. L Cx - mild luminal irregularities. RCA - proximal <30% stenosis; mid/distal vessel mild plaques. PDA - mild luminal irregularities. History of esophagogastroduodenoscopy (EGD) History of right below knee amputation (12/22/21) Right Below Knee Amputation(Right) - Davon Good MD, FACS Family History Mother , age 63 Myocardial infarction Father , age 68 or 69 Myocardial infarction Brother S/P CABG (coronary artery bypass graft) Sister Myocardial infarction x 3; she is 57yo Social History Smoking Status: Current every day smoker Tobacco Type: Cigarettes packs per day: 0.5; Years Smoked: 20; Cigarettes Per Day: 20; Second Hand Exposure: No; Hx Alcohol Use: No Hx Substance Use: Yes Prescribed Medications: Marijuana Last Used Substance: Days (ago) Last Used Substance Other:: 2 days ago Substance Use Type Other:: medical marijuana Preferred Language: [place] Communication Ability: Effective Visual Impairment: No Limitations Hearing Ability: Normal Audience Development Manager Required: No Beliefs That Will Affect Care: None marital status: Current Living Situation: Spouse current occupational status: unemployed 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 other: raising a grandchild as well; lives in [place] Feels Safe at Home: Yes Safety Concerns: Feels Safe At This Time during the past year weight has: remained stable Assistive Devices: Walker and Wheelchair Physical Exam Physical Exam: In general she is awake and alert pleasant appears un comfortable and fatigued. HEENT normocephalic atraumatic mucous membranes moist. Cardio is regular distant no rubs murmurs or gallops. Lungs are clear to auscultation bilaterally somewhat diminished throughout but no rales rhonchi or wheezes with good effort. Abdomen is soft nondistended mild epigastric tenderness without guarding rebound or rigidity. No masses organomegaly. Extremity left shows a healing surgical wound and no surrounding erythema, no cyanosis or clubbing. BKA right. Neuro shows cranial nerves II through XII to be grossly intact gross motor and sensory are intact. Skin shows no rashes no pallor or icterus. Mental status shows good recent and remote recall normal mood and affect good judgment and insight. Results & Data Results & Data ([facility]) Vital Signs (Past 12 Hours) Vital Signs Temp Pulse Pulse Resp BP BP BP 04/27/22 16:56 99.0 F 80 16 117/72 04/27/22 13:39 99 H 20 180/96 H 04/27/22 12:46 99 H 20 215/103 H 04/27/22 11:46 99 H 20 219/130 H 04/27/22 08:37 99 H 20 215/103 H 04/27/22 11:00 17 04/27/22 10:30 19 04/27/22 10:00 18 04/27/22 09:30 93 H 19 177/77 H 04/27/22 09:14 97 H 14 169/87 H 04/27/22 08:00 196/98 H 04/27/22 07:37 98 H 17 166/94 H 04/27/22 09:34 19 04/27/22 09:04 17 04/27/22 08:34 17 04/27/22 08:04 18 04/27/22 07:34 19 04/27/22 07:28 04/27/22 07:28 98.6 F 18 04/27/22 07:27 04/27/22 06:32 98.1 F 101 H 20 163/76 H Pulse Ox O2 Del Method 04/27/22 16:56 98 Room Air 04/27/22 13:39 84 L Room Air 04/27/22 12:46 95 Room Air 04/27/22 11:46 96 Room Air 04/27/22 08:37 95 Room Air 04/27/22 11:00 95 Room Air 04/27/22 10:30 94 Room Air 04/27/22 10:00 98 Room Air 04/27/22 09:30 94 Room Air 04/27/22 09:14 97 Room Air 04/27/22 08:00 92 Room Air 04/27/22 07:37 98 Room Air 04/27/22 09:34 96 Room Air 04/27/22 09:04 96 Room Air 04/27/22 08:34 96 Room Air 04/27/22 08:04 97 Room Air 04/27/22 07:34 95 Room Air 04/27/22 07:28 98 Room Air 04/27/22 07:28 98 Room Air 04/27/22 07:27 98 Room Air 04/27/22 06:32 98 Room Air Code Status & VTE Plan VTE Prophylaxis Plan VTE Prophylaxis will be ordered: Yes PG Care Time/CCT Total # of Minutes Spent Total Time Spent with Patient: Total time spent is greater than 50% in coordination of care (as documented) at patient's floor/unit and/or counseling patient: Coding Level of Care Code 72201 Initial Inpt Care Lvl 3 Diagnoses COVID-19 U07.1 Osteomyelitis of great toe of left foot M86.9 Diabetes mellitus type 2, uncontrolled E11.65 HTN (hypertension) I10 Anemia D64.9 Hyperlipidemia E78.5 Hyperlipidemia type: unspecified Hyponatremia E87.1 DVT prophylaxis Z29.9 Discharge planning issues Z02.9 (1) Hyperlipidemia Hyperlipidemia type: unspecified Qualified Code(s): E78.5 - Hyperlipidemia, unspecified
[2022-04-27] MEDS: ZOLPIDEM TARTRATE 10 MG TAB PO PRN (21:19)
[2022-04-27] MEDS: SERTRALINE HCL 50 MG TABLET PO SCH (21:53)
[2022-04-27] MEDS: rOPINIRole HCL 2 MG TABLET PO SCH (21:53)
[2022-04-27] MEDS: LANTUS PER UNIT CHARGE SQ SCH (21:59)
[2022-04-28] MEDS: HYDROmorphone INJ 1 MG/ML SYRINGE IV PRN ×5 (00:13→21:32)
[2022-04-28] MEDS: ONDANSETRON INJ 2 MG/ML 2 ML VIAL IV SCH ×2 (00:13→06:08)
--- NOTE | 2022-04-28 05:35 | Electrocardiogram Report ---
Test Reason : Blood Pressure : / mmHG Vent. Rate : 097 BPM Atrial Rate : 097 BPM P-R Int : 144 ms QRS Dur : 084 ms QT Int : 334 ms P-R-T Axes : 063 061 074 degrees QTc Int : 424 ms Normal sinus rhythm Septal infarct (cited on or before 08-MAR-2022) Abnormal ECG When compared with ECG of 01-APR-2022 23:23, No significant change was found Confirmed by Andre Hinojosa ([id number]) on 04/28/2022 5:35:25 AM Referred By: Confirmed By:Andre Hinojosa
[2022-04-28] MEDS: oxyCODONE/ACETAMINOPHEN 5mg/325mg TAB PO PRN ×3 (06:13→23:28)
[2022-04-28 09:21] LABS: Basophils # (auto) 0.03 K/uL (0-0.2); Basophils % (auto) 0.5 %; Eosinophils # (auto) 0.02 K/uL (0-0.50); Eosinophils % (auto) 0.3 %; Hematocrit (blood only) 34.7 % (34.1-44.9); Hemoglobin 11.2 g/dl (12.0-16.0); Immature Granulocytes # (auto) 0.02 K/uL (0.00-0.02); Immature Granulocytes % (auto) 0.3 %; Lymphocytes # (auto) 2.28 K/uL (1.2-3.4); Mean Corpuscular Hemoglobin 24.5 pg (25.0-34.0); Mean Corpuscular Hgb Conc 32.3 g/dL (32.0-36.0); Mean Corpuscular Volume 75.8 fL (80.0-100.0); Mean Platelet Volume 9.9 fL (9.4-12.3); Monocytes % (auto) 15.4 %; Neutrophils % (auto) 44.5 %; Platelet Count 194 K/uL (130-400); RDW Coefficient of Variation 20.1 % (11.5-14.5); RDW Standard Deviation 54.7 fL (36.4-46.3); Red Blood Count 4.58 M/uL (3.93-5.22); White Blood Count 5.85 K/ul (4.8-10.8)
[2022-04-28] MEDS: INSULIN ASPART PER UNIT SC SCH ×4 (09:40→22:10)
[2022-04-28] MEDS: ALUMINUM/MAGNESIUM/SIMETH (MAALOX MAX) 30 ML UDC PO SCH ×3 (09:47→16:53)
[2022-04-28] MEDS: ASPIRIN 81 MG ECTAB PO SCH (09:48)
[2022-04-28] MEDS: METOPROLOL SUCC 50MG EXT REL TAB PO SCH (09:48)
[2022-04-28] MEDS: CLOPIDOGREL BISULFATE 75 MG TAB PO SCH (09:48)
[2022-04-28] MEDS: METOCLOPRAMIDE HCL 5 MG TABLET PO SCH ×2 (09:48→13:14)
[2022-04-28] MEDS: PANTOprazole 40 MG in SYRINGE 0 ML IV SCH ×2 (09:49→20:45)
[2022-04-28] MEDS: DAPTOmycin 200 MG in SYRINGE 0 ML IV SCH (09:49)
[2022-04-28] MEDS: oxyCODONE HCL IR 5 MG TAB (IMMEDIATE RELEASE) PO SCH ×2 (09:49→20:42)
[2022-04-28] MEDS: FAMOTIDINE 20 MG in SYRINGE 3 ML IV SCH ×2 (09:49→20:44)
[2022-04-28] MEDS: hydrOXYzine HCl 25 MG TAB PO SCH (09:49)
[2022-04-28] MEDS: PREGABALIN 100 MG CAP PO SCH ×3 (09:50→20:42)
[2022-04-28 09:52] LABS: BUN Creatinine Ratio 33.3 (10-20); Calcium 8.7 mg/dl (8.5-10.1); Creatinine Clr Calc Pharmacy 78.1 ml/min; Est GFR (African American) 107.7 ml/min; Potassium 4.2 mmol/L (3.5-5.1)
[2022-04-28 10:06] LABS: Anisocytosis Present
[2022-04-28] MEDS: THIAMINE HCL 100 MG TAB PO SCH (10:41)
[2022-04-28] MEDS: MULTIVITAMIN TAB PO SCH (10:41)
[2022-04-28] MEDS ORDERED: ONDANSETRON INJ 2 MG/ML 2 ML VIAL IV PRN ×2 (12:00→15:41)
[2022-04-28] MEDS: ENOXAPARIN INJ 40 MG/0.4 ML SYR SQ SCH (13:14)
[2022-04-28] MEDS ORDERED: FUROSEMIDE 40 MG/4 ML VIAL IV ONE (15:31)
[2022-04-28] MEDS: METOCLOPRAMIDE HCL 10 MG TABLET PO SCH (16:53)
[2022-04-28] MEDS: DICLOFENAC SOD 1% GEL 100 GM TUBE EXT SCH ×2 (16:53→20:44)
[2022-04-28] MEDS: MAGNESIUM SULFATE / D5W 1 GM/100 ML BAG IV SCH ×3 (16:53→21:31)
--- NOTE | 2022-04-28 17:02 | Hospitalist Progress Note ---
Date of Service April 28, 2022 Assessment & Plan (1) COVID-19: Plan: Appears that intractable nausea and vomiting is likely GI symptoms related to COVID-19 infection. Continue aggressive nausea management Zofran, Reglan, Phenergan as needed, supportive care. Fortunately no significant respiratory symptoms directly attributable to COVID, suspect more a mild degree of diastolic CHF. (2) Diastolic CHF: Plan: Acute. Check echo, diuresis. (3) Osteomyelitis of great toe of left foot: Plan: dapto - will likely want f/u imaging but while on abx no need to image urgently, no urgent surgical indication - treat above, allow symptoms to improve then w/u further. pain control w home regimen plus IV diluaded acutely. no complaints of uncontrolled foot pain today (4) Diabetes mellitus type 2, uncontrolled: Plan: basal bolus insulin, sugars reasonable today (5) HTN (hypertension): Plan: BP reasonable given situation, follow (6) Somatic dysfunction of thoracic region: Plan: back pain appears to be predominantly biomechanical OMT as above voltaren gel QID mag sulfate to try to affect muscle relaxation follow/pain meds otherwise as above (7) Anemia: Plan: Hgb acceptable, follow (8) Hyperlipidemia: (9) Hyponatremia: Plan: follow, hopefully will improve w better PO intake and ongoing diuresis. 130 today (10) DVT prophylaxis: Plan: lovenox (11) Discharge planning issues: Plan: admit to [facility] hospitalists, anticipate ability to dc home Admission and Anticipated Discharge Date Admission Date: April 27, 2022 Subjective Nausea about the same. Short of breathmostly whenever she lays down, not when sitting up. Does not describe dyspnea on exertion. Otherwise mostly just nausea, was able to eat a little bit, which seems to maybe be better than yesterday, but when asked how she feels compared to yesterday she notes about the same. Notes pretty much everyone else at home is sick now too. Notes bilateral thoracic back pain that is really bothersomehas been going on for a while. Review of Systems Review of Systems: All systems reviewed & are unremarkable except as noted in HPI & below Physical Exam Physical Exam: In general she is awake and alert pleasant no distress. HEENT normocephalic atraumatic mucous membranes moist. Cardio regular no rubs murmurs or gallops. Lungs diminished throughout but clear without rales rhonchi or w heezes good effort. Osteopathic/musculoskeletalbilateral T-spine paraspinals high tone, tender, decreased range of motiondirect myofascialimproved some. Results & Data Results & Data ([facility]) Vital Signs (Past 12 Hours) Vital Signs Temp Pulse Resp BP Pulse Ox Pulse Ox O2 Del Method 04/28/22 09:25 Room Air 04/28/22 09:25 100 04/28/22 08:23 98.4 F 76 18 151/77 H 100 Room Air O2 Del Method 04/28/22 09:25 04/28/22 09:25 Room Air 04/28/22 08:23 PG Care Time/CCT Total # of Minutes Spent Total Time Spent with Patient: Total time spent is greater than 50% in coordination of care (as documented) at patient's floor/unit and/or counseling patient: Coding Level of Care Code 00442 Subseq Hosp Care Lvl 3 Diagnoses COVID-19 U07.1 Diastolic CHF I50.30 Osteomyelitis of great toe of left foot M86.9 Diabetes mellitus type 2, uncontrolled E11.65 HTN (hypertension) I10 Somatic dysfunction of thoracic region M99.02 Anemia D64.9 Hyperlipidemia E78.5 Hyperlipidemia type: unspecified Hyponatremia E87.1 DVT prophylaxis Z29.9 Discharge planning issues Z02.9 CPT Codes Musculoskeletal - Musculoskeletal: [address] 1-2 Body regions ([id number]) (1) Hyperlipidemia Hyperlipidemia type: unspecified Qualified Code(s): E78.5 - Hyperlipidemia, unspecified
[2022-04-28] MEDS: ondansetron HCL 8 MG in DEXTROSE 5% 50 ML IV PRN (17:19)
[2022-04-28] MEDS: SERTRALINE HCL 50 MG TABLET PO SCH (20:43)
[2022-04-28] MEDS: rOPINIRole HCL 2 MG TABLET PO SCH (20:43)
[2022-04-28] MEDS: LORazepam 1 MG TAB PO PRN (21:33)
[2022-04-28] MEDS: LANTUS PER UNIT CHARGE SQ SCH (22:10)
[2022-04-28] MEDS: ZOLPIDEM TARTRATE 10 MG TAB PO PRN (23:28)
[2022-04-29] MEDS: HYDROmorphone INJ 1 MG/ML SYRINGE IV PRN ×5 (03:10→22:16)
[2022-04-29] MEDS: ondansetron HCL 8 MG in DEXTROSE 5% 50 ML IV PRN (03:11)
[2022-04-29] MEDS: oxyCODONE/ACETAMINOPHEN 5mg/325mg TAB PO PRN ×3 (06:30→17:17)
[2022-04-29] MEDS: PANTOprazole 40 MG in SYRINGE 0 ML IV SCH ×2 (08:40→21:05)
[2022-04-29] MEDS: PREGABALIN 100 MG CAP PO SCH ×3 (08:41→21:05)
[2022-04-29] MEDS: DAPTOmycin 200 MG in SYRINGE 0 ML IV SCH (08:41)
[2022-04-29] MEDS: FAMOTIDINE 20 MG in SYRINGE 3 ML IV SCH ×2 (08:41→22:16)
[2022-04-29] MEDS: oxyCODONE HCL IR 5 MG TAB (IMMEDIATE RELEASE) PO SCH ×2 (08:41→21:03)
[2022-04-29] MEDS: CLOPIDOGREL BISULFATE 75 MG TAB PO SCH (08:42)
[2022-04-29] MEDS: METOPROLOL SUCC 50MG EXT REL TAB PO SCH (08:43)
[2022-04-29] MEDS: ALUMINUM/MAGNESIUM/SIMETH (MAALOX MAX) 30 ML UDC PO SCH ×3 (08:43→17:16)
[2022-04-29] MEDS: ASPIRIN 81 MG ECTAB PO SCH (08:43)
[2022-04-29] MEDS: THIAMINE HCL 100 MG TAB PO SCH (08:44)
[2022-04-29] MEDS: METOCLOPRAMIDE HCL 10 MG TABLET PO SCH ×2 (08:45→12:32)
[2022-04-29] MEDS: MULTIVITAMIN TAB PO SCH (08:46)
[2022-04-29] MEDS: DICLOFENAC SOD 1% GEL 100 GM TUBE EXT SCH ×4 (08:46→21:08)
[2022-04-29 09:15] LABS: Basophils # (auto) 0.02 K/uL (0-0.2); Basophils % (auto) 0.4 %; Eosinophils % (auto) 1.9 %; Hematocrit (blood only) 35.9 % (34.1-44.9); Hemoglobin 11.4 g/dl (12.0-16.0); Immature Granulocytes # (auto) 0.03 K/uL (0.00-0.02); Immature Granulocytes % (auto) 0.6 %; Lymphocytes # (auto) 1.33 K/uL (1.2-3.4); Lymphocytes % (auto) 25.7 %; Mean Corpuscular Hemoglobin 24.4 pg (25.0-34.0); Mean Corpuscular Hgb Conc 31.8 g/dL (32.0-36.0); Mean Corpuscular Volume 76.7 fL (80.0-100.0); Mean Platelet Volume 9.8 fL (9.4-12.3); Monocytes # (auto) 0.55 K/uL (0.24-0.82); Monocytes % (auto) 10.6 %; Neutrophils # (auto) 3.15 K/uL (1.4-6.5); Neutrophils % (auto) 60.8 %; Platelet Count 190 K/uL (130-400); RDW Standard Deviation 54.4 fL (36.4-46.3); Red Blood Count 4.68 M/uL (3.93-5.22); White Blood Count 5.18 K/ul (4.8-10.8)
[2022-04-29] MEDS: hydrOXYzine HCl 25 MG TAB PO SCH (09:18)
[2022-04-29] MEDS: INSULIN ASPART PER UNIT SC SCH ×4 (09:25→22:43)
[2022-04-29 09:50] LABS: BUN Creatinine Ratio 34.9 (10-20); Calcium 8.8 mg/dl (8.5-10.1); Creatinine Clr Calc Pharmacy 89.3 ml/min; Est GFR (African American) 115.4 ml/min; Est GFR (Non-African American) 99.6 ml/min; Potassium 4.6 mmol/L (3.5-5.1)
--- NOTE | 2022-04-29 12:17 | XCELERA ---
[id number] \\[id number]
[2022-04-29] MEDS: ENOXAPARIN INJ 40 MG/0.4 ML SYR SQ SCH (14:03)
--- NOTE | 2022-04-29 15:36 | Hospitalist Progress Note ---
Date of Service April 29, 2022 Assessment & Plan (1) COVID-19: Plan: Appears that intractable nausea and vomiting is likely GI symptoms related to COVID-19 infection. Continue aggressive nausea management Zofran, Reglan, Phenergan as needed, supportive care (doing a little bit betterwe will reduce Reglan and Zofran to try to minimize potential side effects given the high and dosing). Fortunately no significant respiratory symptoms directly attributable to COVID, suspect more a mild degree of diastolic CHF, which has now effectively resolved (2) Diastolic CHF: Plan: Acute. Awaiting echo, follow clinically, no clear need for further diuresis at this time. (3) Osteomyelitis of great toe of left foot: Plan: Continue dapto - will likely want f/u imaging but while on abx no need to image urgently, no urgent surgical indication - treat above, allow symptoms to improve then w/u further. pain control w home regimen plus IV diluaded acutely. no complaints of uncontrolled foot pain today (4) Diabetes mellitus type 2, uncontrolled: Plan: basal bolus insulin, sugars again reasonable today, was a little high last night, but will follow through todayif continues to be high late in the day will adjust insulins then (5) HTN (hypertension): Plan: BP reasonable given situation, follow (6) Somatic dysfunction of thoracic region: Plan: back pain appears to be predominantly biomechanical OMT done yesterday, can repeat if needed voltaren gel QID mag sulfate to try to affect muscle relaxation follow/pain meds otherwise as above (7) Anemia: Plan: Hgb remains acceptable, follow (8) Hyperlipidemia: (9) Hyponatremia: Plan: Related to illness with poor p.o. intake causing a bit of a hypocellular state, and diastolic CHF causing fluid overload. Continue to follow (10) DVT prophylaxis: Plan: lovenox (11) Discharge planning issues: Plan: admit to [facility] hospitalists, anticipate ability to dc home Admission and Anticipated Discharge Date Admission Date: April 27, 2022 Subjective nausea improving a little. ate a bit better. no sob. laying flat - no further orthopnea. back still hurts some. no other new complaints Review of Systems Review of Systems: All systems reviewed & are unremarkable except as noted in HPI & below Physical Exam Physical Exam: In general she is awake and alert pleasant no distress. HEENT normocephalic atraumatic mucous membranes moist. Lungs are clear to auscultation bilaterally no rales rhonchi or wheeze with good effort. Skin shows no rashes no pallor or icterus. Mental status shows good recent remote recall normal mood and affect good judgment and insight. Of note, whenever she is laying in bed at rest her pulse ox is about 93% on room air, whenever she sits up the waveform gets disrupted and it reads her is as low as 84 with absolutely no respiratory distress, then once she is still she is 97 to 100% on room air with no dyspnea. Results & Data Results & Data ([facility]) Vital Signs (Past 12 Hours) Vital Signs Temp Pulse Resp BP Pulse Ox O2 Del Method 04/29/22 09:00 Room Air 04/29/22 08:55 98.2 F 74 18 128/73 97 Room Air PG Care Time/CCT Total # of Minutes Spent Total Time Spent with Patient: Total time spent is greater than 50% in coordination of care (as documented) at patient's floor/unit and/or counseling patient: Coding Level of Care Code 82260 Subseq Hosp Care Lvl 3 Diagnoses COVID-19 U07.1 Diastolic CHF I50.30 Osteomyelitis of great toe of left foot M86.9 Diabetes mellitus type 2, uncontrolled E11.65 HTN (hypertension) I10 Somatic dysfunction of thoracic region M99.02 Anemia D64.9 Hyperlipidemia E78.5 Hyperlipidemia type: unspecified Hyponatremia E87.1 DVT prophylaxis Z29.9 Discharge planning issues Z02.9 (1) Hyperlipidemia Hyperlipidemia type: unspecified Qualified Code(s): E78.5 - Hyperlipidemia, unspecified
[2022-04-29] MEDS: METOCLOPRAMIDE HCL 5 MG TABLET PO SCH (17:19)
[2022-04-29] MEDS: rOPINIRole HCL 2 MG TABLET PO SCH (21:06)
[2022-04-29] MEDS: SERTRALINE HCL 50 MG TABLET PO SCH (21:07)
[2022-04-29] MEDS: LANTUS PER UNIT CHARGE SQ SCH (22:41)
[2022-04-30] MEDS: ondansetron HCL 6 MG in DEXTROSE 5% 50 ML IV PRN ×4 (00:26→16:51)
[2022-04-30] MEDS: ZOLPIDEM TARTRATE 10 MG TAB PO PRN (00:56)
[2022-04-30] MEDS: HYDROmorphone INJ 1 MG/ML SYRINGE IV PRN ×5 (03:37→23:51)
[2022-04-30] MEDS: oxyCODONE/ACETAMINOPHEN 5mg/325mg TAB PO PRN (06:30)
[2022-04-30 07:03] LABS: Basophils # (auto) 0.01 K/uL (0-0.2); Basophils % (auto) 0.2 %; Eosinophils # (auto) 0.13 K/uL (0-0.50); Eosinophils % (auto) 2.5 %; Hematocrit (blood only) 32.2 % (34.1-44.9); Hemoglobin 10.3 g/dl (12.0-16.0); Immature Granulocytes # (auto) 0.02 K/uL (0.00-0.02); Immature Granulocytes % (auto) 0.4 %; Lymphocytes # (auto) 1.71 K/uL (1.2-3.4); Mean Corpuscular Hemoglobin 24.5 pg (25.0-34.0); Mean Corpuscular Volume 76.5 fL (80.0-100.0); Monocytes # (auto) 0.53 K/uL (0.24-0.82); Monocytes % (auto) 10.2 %; Neutrophils # (auto) 2.78 K/uL (1.4-6.5); Neutrophils % (auto) 53.7 %; Platelet Count 150 K/uL (130-400); RDW Coefficient of Variation 19.8 % (11.5-14.5); RDW Standard Deviation 54.3 fL (36.4-46.3); Red Blood Count 4.21 M/uL (3.93-5.22); White Blood Count 5.18 K/ul (4.8-10.8)
[2022-04-30 07:31] LABS: BUN Creatinine Ratio 31.7 (10-20); Calcium 8.3 mg/dl (8.5-10.1); Creatinine Clr Calc Pharmacy 93.8 ml/min; Est GFR (African American) 117.3 ml/min; Est GFR (Non-African American) 101.2 ml/min; Potassium 4.5 mmol/L (3.5-5.1)
[2022-04-30] MEDS: METOCLOPRAMIDE HCL 5 MG TABLET PO SCH ×3 (08:36→17:54)
[2022-04-30] MEDS: DICLOFENAC SOD 1% GEL 100 GM TUBE EXT SCH ×4 (08:40→22:00)
[2022-04-30] MEDS: INSULIN ASPART PER UNIT SC SCH ×4 (09:38→21:42)
[2022-04-30] MEDS: ALUMINUM/MAGNESIUM/SIMETH (MAALOX MAX) 30 ML UDC PO SCH ×3 (09:39→17:54)
[2022-04-30] MEDS: PREGABALIN 100 MG CAP PO SCH ×3 (09:40→21:58)
[2022-04-30] MEDS: METOPROLOL SUCC 50MG EXT REL TAB PO SCH (09:40)
[2022-04-30] MEDS: hydrOXYzine HCl 25 MG TAB PO SCH (09:40)
[2022-04-30] MEDS: oxyCODONE HCL IR 5 MG TAB (IMMEDIATE RELEASE) PO SCH ×2 (09:40→21:58)
[2022-04-30] MEDS: ASPIRIN 81 MG ECTAB PO SCH (09:40)
[2022-04-30] MEDS: MULTIVITAMIN TAB PO SCH (09:40)
[2022-04-30] MEDS: THIAMINE HCL 100 MG TAB PO SCH (09:40)
[2022-04-30] MEDS: CLOPIDOGREL BISULFATE 75 MG TAB PO SCH (09:40)
[2022-04-30] MEDS: DAPTOmycin 200 MG in SYRINGE 0 ML IV SCH (09:43)
[2022-04-30] MEDS: PANTOprazole 40 MG in SYRINGE 0 ML IV SCH ×2 (09:44→21:59)
[2022-04-30] MEDS: FAMOTIDINE 20 MG in SYRINGE 3 ML IV SCH ×2 (09:44→23:51)
[2022-04-30] MEDS: ENOXAPARIN INJ 40 MG/0.4 ML SYR SQ SCH (14:58)
[2022-04-30] MEDS ORDERED: HYDROmorphone INJ 1 MG/ML SYRINGE IV STA (18:04)
--- NOTE | 2022-04-30 18:09 | Hospitalist Progress Note ---
Date of Service April 30, 2022 Assessment & Plan (1) COVID-19: Plan: Appears that intractable nausea and vomiting is likely GI symptoms related to COVID-19 infection. Continue aggressive nausea management Zofran, Reglan, Phenergan as needed, supportive care (doing a little bit betterwe will reduce Reglan and Zofran to try to minimize potential side effects given the high and dosing). That said, in spite of very aggressive med management now for about 2 days, she is barely feeling any differentand may in fact even be feeling a little bit worse. While this could simply be the duration of COVID extending what amounts to a viral gastroenteritis, I do worry about peptic ulcer diseasewe will ask GI to see her for considerations for EGD. Fortunately no significant respiratory symptoms directly attributable to COVID, suspect more a mild degree of diastolic CHF, which has now effectively resolved (2) Diastolic CHF: Plan: Acute. For all intents and purposes resolved. (3) Osteomyelitis of great toe of left foot: Plan: Continue dapto - will likely want f/u imaging but while on abx no need to image urgently, no urgent surgical indication - treat above, allow symptoms to improve then w/u further. pain control w home regimen plus IV diluaded acutely. Pain a little bit worse todayI suspect it is in the whole body picture of generally feeling worse overall. (4) Diabetes mellitus type 2, uncontrolled: Plan: basal bolus insulin, sugars at goal today (5) HTN (hypertension): Plan: BP reasonable given situation, follow (6) Somatic dysfunction of thoracic region: Plan: back pain appears to be predominantly biomechanical OMT as above voltaren gel QID Previously gave mag sulfate to try to affect muscle relaxation follow/pain meds otherwise as above (7) Anemia: Plan: Hgb remains acceptable, follow (8) Hyperlipidemia: (9) Hyponatremia: Plan: Related to illness with poor p.o. intake causing a bit of a hypo osmolar state, and diastolic CHF causing fluid overload. Continue to followimproving (10) DVT prophylaxis: Plan: lovenox (11) Discharge planning issues: Plan: Stable on medsurg, once she is improved [facility], anticipate ability to dc home Admission and Anticipated Discharge Date Admission Date: April 27, 2022 Subjective Generally feeling more or less the samemaybe a little bit worse. She is starting to have some diarrheaprobably 5 episodes or so. Nonbloody. She was vomiting last nightagain nonbloody. Nausea was maybe a little bit better this morningshe ate about half of her breakfast, but then unfortunately had more nausea and epigastric pain and barely ate any of her lunchthis was corroborated by nursing as well. Back pain persists. Her breathing feels better and her orthopnea has long since resolved Review of Systems Review of Systems: All systems reviewed & are unremarkable except as noted in HPI & below Physical Exam Physical Exam: In general she is awake and alert very fatigued but no distress. HEENT normocephalic atraumatic mucous membranes moist. Lungs are clear to auscultation bilaterally no rales rhonchi wheeze with good effort. Cardio is regular no rubs murmurs or gallops. Osteopathic/musculoskeletal shows left greater than right bilateral thoracic paraspinals high tone, tender, decreased range of motiondirect myofascial with some improvement. Patient tolerated well. Abdomen is soft mildly distended she has fairly significant epigastric tenderness with a little bit of voluntary guarding although no peritoneal signs/involuntary guarding/rebound or rigidity. Neuro shows no focal deficits. Skin without rashes, pallor, icterus. Results & Data Results & Data ([facility]) Vital Signs (Past 12 Hours) Vital Signs Temp Pulse Resp BP BP Pulse Ox O2 Del Method 04/30/22 15:00 98.4 F 61 16 115/70 93 Room Air 04/30/22 08:20 99.1 F 74 18 136/68 96 Room Air PG Care Time/CCT Total # of Minutes Spent Total Time Spent with Patient: Total time spent is greater than 50% in coordination of care (as documented) at patient's floor/unit and/or counseling patient: Coding Level of Care Code 31289 Subseq Hosp Care Lvl 3 Diagnoses COVID-19 U07.1 Diastolic CHF I50.30 Osteomyelitis of great toe of left foot M86.9 Diabetes mellitus type 2, uncontrolled E11.65 HTN (hypertension) I10 Somatic dysfunction of thoracic region M99.02 Anemia D64.9 Hyperlipidemia E78.5 Hyperlipidemia type: unspecified Hyponatremia E87.1 DVT prophylaxis Z29.9 Discharge planning issues Z02.9 CPT Codes Musculoskeletal - Musculoskeletal: [address] 1-2 Body regions ([id number]) (1) Hyperlipidemia Hyperlipidemia type: unspecified Qualified Code(s): E78.5 - Hyperlipidemia, unspecified
[2022-04-30] MEDS: LANTUS PER UNIT CHARGE SQ SCH (21:43)
[2022-04-30] MEDS: SERTRALINE HCL 50 MG TABLET PO SCH (21:57)
[2022-04-30] MEDS: rOPINIRole HCL 2 MG TABLET PO SCH (21:57)
[2022-05-01] MEDS ORDERED: ZOLPIDEM TARTRATE 10 MG TAB PO ONE (03:00)
[2022-05-01] MEDS: HYDROmorphone INJ 1 MG/ML SYRINGE IV PRN ×3 (05:36→17:26)
[2022-05-01 06:35] LABS: Basophils # (auto) 0.02 K/uL (0-0.2); Basophils % (auto) 0.4 %; Eosinophils # (auto) 0.14 K/uL (0-0.50); Eosinophils % (auto) 2.6 %; Hematocrit (blood only) 35.1 % (34.1-44.9); Hemoglobin 10.9 g/dl (12.0-16.0); Immature Granulocytes # (auto) 0.02 K/uL (0.00-0.02); Immature Granulocytes % (auto) 0.4 %; Lymphocytes % (auto) 39.5 %; Mean Corpuscular Hemoglobin 24.3 pg (25.0-34.0); Mean Corpuscular Hgb Conc 31.1 g/dL (32.0-36.0); Mean Corpuscular Volume 78.3 fL (80.0-100.0); Monocytes # (auto) 0.59 K/uL (0.24-0.82); Monocytes % (auto) 11.1 %; Neutrophils # (auto) 2.44 K/uL (1.4-6.5); Platelet Count 166 K/uL (130-400); RDW Coefficient of Variation 20.1 % (11.5-14.5); RDW Standard Deviation 56.6 fL (36.4-46.3); Red Blood Count 4.48 M/uL (3.93-5.22); White Blood Count 5.31 K/ul (4.8-10.8)
[2022-05-01 07:03] LABS: Anisocytosis Present; BUN Creatinine Ratio 19.7 (10-20); Calcium 8.8 mg/dl (8.5-10.1); Creatinine Clr Calc Pharmacy 79.2 ml/min; Est GFR (African American) 109.6 ml/min; Est GFR (Non-African American) 94.6 ml/min; Potassium 4.5 mmol/L (3.5-5.1)
[2022-05-01] MEDS: METOCLOPRAMIDE HCL 5 MG TABLET PO SCH ×3 (07:29→17:03)
[2022-05-01] MEDS: ALUMINUM/MAGNESIUM/SIMETH (MAALOX MAX) 30 ML UDC PO SCH ×3 (07:34→17:02)
[2022-05-01] MEDS: THIAMINE HCL 100 MG TAB PO SCH (09:09)
[2022-05-01] MEDS: ASPIRIN 81 MG ECTAB PO SCH (09:10)
[2022-05-01] MEDS: MULTIVITAMIN TAB PO SCH (09:11)
[2022-05-01] MEDS: CLOPIDOGREL BISULFATE 75 MG TAB PO SCH (09:11)
[2022-05-01] MEDS: METOPROLOL SUCC 50MG EXT REL TAB PO SCH (09:11)
[2022-05-01] MEDS: ERGOCALCIFEROL 50,000 UNITS 1250 MCG CAP PO SCH (09:13)
[2022-05-01] MEDS: DICLOFENAC SOD 1% GEL 100 GM TUBE EXT SCH ×4 (09:13→22:49)
[2022-05-01] MEDS: PANTOprazole 40 MG in SYRINGE 0 ML IV SCH ×2 (09:14→22:30)
[2022-05-01] MEDS: FAMOTIDINE 20 MG in SYRINGE 3 ML IV SCH ×2 (09:14→22:47)
[2022-05-01] MEDS: INSULIN ASPART PER UNIT SC SCH ×4 (09:30→22:33)
[2022-05-01] MEDS: oxyCODONE HCL IR 5 MG TAB (IMMEDIATE RELEASE) PO SCH ×2 (09:33→22:48)
[2022-05-01] MEDS: PREGABALIN 100 MG CAP PO SCH ×3 (09:34→22:47)
[2022-05-01] MEDS: hydrOXYzine HCl 25 MG TAB PO SCH (09:34)
[2022-05-01] MEDS: DAPTOmycin 200 MG in SYRINGE 0 ML IV SCH (09:35)
--- NOTE | 2022-05-01 09:55 | Communication Note ---
Date of Service: May 01, 2022 To mitigate COVID 19 exposure risk, history and recommendations were made based on a chart review and discussion with Dr. Mora who advised on plan. There is no clinical benefit of physical examination in this clinical case, however, we will reassess if clinical situation were to change. GI consulted to see patient for nausea/vomiting/epigastric pain with concern for PUD. Given her active Covid, would defer any endoscopic procedures at this time. Even if EGD were done and we did find PUD, would recommend BID PPI which the patient is already jayde ing. Since still having some symptoms despite this, will increase famotidine to 40mg bid to help maximize therapy and can assess how she does with this. Can consider outpatient EGD once her Covid has resolved if still having ongoing issues, but per chart review symptoms started 3 days prior to admission and symptoms may very well be multifactorial from her Covid as well as GI upset from antibiotic use for her foot infection.
[2022-05-01] MEDS ORDERED: LEVALBUTEROL 1.25MG/0.5ML NEB NEB STA (10:34)
[2022-05-01] MEDS ORDERED: dilTIAZem HCL 30 MG TAB PO ONE (10:45)
--- NOTE | 2022-05-01 10:53 | Communication Note ---
Date of Service: May 01, 2022 received notice from pharmacy that 20mg bid is the max dose of famotidine IV. discussed with Dr. Mora. will keep patient on famotidine 20mg IV bid and will add carafate 1gm qid.
[2022-05-01] MEDS ORDERED: DAPTOmycin 200 MG in SYRINGE 0 ML IV ONE (12:00)
--- NOTE | 2022-05-01 12:43 | Hospitalist Progress Note ---
Date of Service May 01, 2022 Assessment & Plan (1) Globus pharyngeus: Plan: severe globus feeling this am after she had eaten breakfast. also had such last night before bed. this is in the setting of her COVID infection and recent severe nausea/emesis from COVID. suspect esophageal spasm/irritation causing her symptoms. anxiety could be contributing. doubt pulmonary in etiology. doubt cardiac in etiology - EKG stable, and troponin (checked several hours aft er the event) was very normal. she experienced relief of symptoms with diltiazem 30mg IR x 1. will schedule diltiazem 30mg po AC. this will also help her HTN. (2) Nausea & vomiting: Plan: presenting symptoms of her COVID illness resolved [facility] consulted - EGD deferred; simply cont PPI + H2 justin and anti-emetics per their recs (3) COVID-19: Plan: Mainly manifested by GI symptoms including N/V. Had presented with such. GI symptoms improved with various anti-emetics. Now eating regular diet. See #1 above regarding possible esophageal spasm. no indication for Remdesivir or Dexamethasone. cont airborne isolation & supportive care. of note - no pneumonia on recent cxr. (4) Infection of left great toe due to methicillin resistant Staphylococcus aureus (MRSA): Plan: multiple admissions for the L great toe over the last 1-2 months. most recent procedure was on 04/14/[address] Montaño with - 1. Left foot great toe subungual abscess incision and drainage. 2. Removal of nail plate with matrixectomy, great toe. 3. Debridement of great toe ulcer 3.0 cm x 2.0 cm x 0.3 cm including skin, dermis, and subcutaneous tissue. MRI foot on 04/10/22 did NOT show osteomyelitis of L first toe. the wound on the L first toe today is the best it has looked in weeks. when she left the hospital recently she was taking a combination of PO keflex with doxycycline. was placed on IV daptomycin this admission due to concerns for PO intolerance of her antibiotics. now that she is taking PO and having no further N/V will stop IV daptomycin and place back on keflex/doxy. of note - culture from L great toe grew MRSA on 03/11/22. Last 2 cultures including this admission's culture have been negative for bacterial pathogens. (5) Diastolic CHF: Plan: prior attending provided gentle diuresis for suspected acute diastolic CHF. appears euvolemic today. no further diuresis. (6) Diabetes mellitus type 2, uncontrolled: Plan: controlled with lantus-novolog a1c 8.7% in March 2022 (7) HTN (hypertension): Plan: labile added diltiazem 30mg before meals -- see #1 above cont metoprolol succinate 50mg qam as well (8) Anemia: Plan: 2nd to Fe Deficiency DID receive without incident IV iron during prior stay (Injectafer) has "allergy" to IV Venofer consider another dose of IV Injectafer as outpatient H/H remain acceptable (9) Hyperlipidemia: Plan: not on meds for such (10) Hyponatremia: Plan: 130 at presentation thought to be hypovolemic hyponatremia in setting of vomiting now 134 and tolerating PO intake BMP am (11) DVT prophylaxis: Plan: lovenox daily (12) Chronic pain syndrome: Plan: cont oxycodone 15mg BID per home regimen (13) Insomnia: Plan: ambien prn HS long-standing issue (14) History of right below knee amputation: (15) History of cardiac cath: Plan: 09/22/19 - [facility]; LM - mild luminal irregularities. LAD - mid 20-30%, distal with myocardial bridge & 30% stenosis. L Cx - mild luminal irregularities. RCA - proximal <30% stenosis; mid/distal vessel mild plaques. PDA - mild luminal irregularities Plan re-eval throat symptoms in am Admission and Anticipated Discharge Date Admission Date: April 27, 2022 Subjective contacted by nursing staff this am that shortly after eating breakfast patient had a tightness sensation in her throat and felt like she couldn't swallow by report had eaten nearly all of her breakfast try (regular food) upon arrival (about 10am) patient was lying in bed flat without distress she was mildly tearful she reported feeling very scared and nervous about the sensation in her throat she pointed to the laryngeal region she had no hoarse voice she states that she had NO DYSPHAGIA OR ODYNOPHAGIA during breakfast this am; no nausea; no vomiting denies chest pain denies significant pulmonary symptoms - just a little shortness of breath I obtained EKG - NSR, early repolarization changes with J-point elevation inferior leads and anterolateral leads but no other ST changes before I even exited her room I ordered a dose of diltiazem 30mg po x 1 along with xopenex /atrovent neb x 1 for her symptoms diltiazem was for ?esophageal spasm causing her throat symptoms Review of Systems Review of Systems: gen - tired/fatigued but no fever cv - no chest pain, no orthopnea pulm - minimal cough, minimal dyspnea GI - nausea/emesis resolved although she apparently asked for zofran this am; no abd pain musculo - continues with L great toe pain skin - patient reports that the L great toe operative site from recent IS improved Physical Exam Physical Exam: gen - looks chronically ill appearing, tired-appearing, tearful, otherwise NAD voice - no hoarseness neck - no swelling/edema mouth - posterior pharynx without erythema, swelling or abnormalities heart - RRR, s1 s2, no murmur lungs - airation fair at best, scattered end-exp wheeze, no rales abd - soft NT ND BS+ ext - right BKA; left foot - pulses 2+, no edema skin - L great toe sutures intact; NO DRAINAGE; ulceration healing with wound edge granulation; no odor; no redness Results & Data Results & Data ([facility]) Vital Signs (Past 12 Hours) Vital Signs Temp Pulse Resp BP BP Pulse Ox O2 Del Method 05/01/22 12:42 138/82 05/01/22 11:54 64 16 96 Room Air 05/01/22 09:44 188/82 H 05/01/22 07:27 36.8 C 64 18 163/82 H 95 Room Air Laboratory Results Laboratory Results - last 24 hr 05/01/22 05/01/22 05/01/22 06:20 06:20 06:20 WBC 5.31 RBC 4.48 Hgb 10.9 L Hct 35.1 MCV 78.3 L MCH 24.3 L MCHC 31.1 L RDW Std Deviation 56.6 H RDW Coeff of [place] 20.1 H Plt Count 166 MPV 10.0 Immature Gran % (Auto) 0.4 Neut % (Auto) 46.0 Lymph % (Auto) 39.5 [place] % (Auto) 11.1 Eos % (Auto) 2.6 Baso % (Auto) 0.4 Neut # (Auto) 2.44 Lymph # (Auto) 2.10 [place] # (Auto) 0.59 Eos # (Auto) 0.14 Baso # (Auto) 0.02 Immature Gran # (Auto) 0.02 Anisocytosis Present Sodium 134 L Potassium 4.5 Chloride 98 Carbon Dioxide 31 Anion Gap 5 BUN 14 Creatinine 0.71 Est Cr Clr Drug Dosing 79.2 Est GFR ( Amer) 109.6 Est GFR (Non-Af Amer) 94.6 BUN/Creatinine Ratio 19.7 Glucose 110 H POC Glucose Calcium 8.8 Troponin I High Sens Lipase 6 L 05/01/22 05/01/22 05/01/22 06:24 08:34 10:17 WBC RBC Hgb Hct MCV MCH MCHC RDW Std Deviation RDW Coeff of [place] Plt Count MPV Immature Gran % (Auto) Neut % (Auto) Lymph % (Auto) [place] % (Auto) Eos % (Auto) Baso % (Auto) Neut # (Auto) Lymph # (Auto) [place] # (Auto) Eos # (Auto) Baso # (Auto) Immature Gran # (Auto) Anisocytosis Sodium Potassium Chloride Carbon Dioxide Anion Gap BUN Creatinine Est Cr Clr Drug Dosing Est GFR ( Amer) Est GFR (Non-Af Amer) BUN/Creatinine Ratio Glucose POC Glucose 111 H 134 H 158 H Calcium Troponin I High Sens Lipase 05/01/22 05/01/22 05/01/22 12:05 16:54 16:59 WBC RBC Hgb Hct MCV MCH MCHC RDW Std Deviation RDW Coeff of [place] Plt Count MPV Immature Gran % (Auto) Neut % (Auto) Lymph % (Auto) [place] % (Auto) Eos % (Auto) Baso % (Auto) Neut # (Auto) Lymph # (Auto) [place] # (Auto) Eos # (Auto) Baso # (Auto) Immature Gran # (Auto) Anisocytosis Sodium Potassium Chloride Carbon Dioxide Anion Gap BUN Creatinine Est Cr Clr Drug Dosing Est GFR ( Amer) Est GFR (Non-Af Amer) BUN/Creatinine Ratio Glucose POC Glucose 128 H 100 H Calcium Troponin I High Sens 4.5 Lipase 05/01/22 20:55 WBC RBC Hgb Hct MCV MCH MCHC RDW Std Deviation RDW Coeff of Mraia Del Carmen Plt Count MPV Immature Gran % (Auto) Neut % (Auto) Lymph % (Auto) [place] % (Auto) Eos % (Auto) Baso % (Auto) Neut # (Auto) Lymph # (Auto) [place] # (Auto) Eos # (Auto) Baso # (Auto) Immature Gran # (Auto) Anisocytosis Sodium Potassium Chloride Carbon Dioxide Anion Gap BUN Creatinine Est Cr Clr Drug Dosing Est GFR ( Amer) Est GFR (Non-Af Amer) BUN/Creatinine Ratio Glucose POC Glucose 138 H Calcium Troponin I High Sens Lipase PG Care Time/CCT Total # of Minutes Spent Total Time Spent with Patient: Total time spent is greater than 50% in coordination of care (as documented) at patient's floor/unit and/or counseling patient: Coding Level of Care Code 81242 Subseq Hosp Care Lvl 3 Diagnoses Globus pharyngeus R09.89 Nausea & vomiting R11.2 Vomiting type: unspecified COVID-19 U07.1 Infection of left great toe due to methicillin resistant Staphylococcus aureus (MRSA) L08.9; B95.62 Diastolic CHF I50.30 Diabetes mellitus type 2, uncontrolled E11.65 HTN (hypertension) I10 Anemia D64.9 Hyperlipidemia E78.5 Hyperlipidemia type: unspecified Hyponatremia E87.1 DVT prophylaxis Z29.9 Chronic pain syndrome G89.4 Insomnia G47.00 History of right below knee amputation Z89.511 History of cardiac cath Z98.890 (1) Hyperlipidemia Hyperlipidemia type: unspecified Qualified Code(s): E78.5 - Hyperlipidemia, unspecified (2) Nausea & vomiting Vomiting type: unspecified Qualified Code(s): R11.2 - Nausea with vomiting, unspecified
[2022-05-01] MEDS: SUCRALFATE 1 GM/10 ML UDC PO SCH ×3 (13:06→22:50)
[2022-05-01] MEDS: cephALEXin 500 MG CAP PO SCH ×3 (13:07→22:51)
--- NOTE | 2022-05-01 13:39 | Electrocardiogram Report ---
Test Reason : Blood Pressure : / mmHG Vent. Rate : 064 BPM Atrial Rate : 064 BPM P-R Int : 154 ms QRS Dur : 088 ms QT Int : 394 ms P-R-T Axes : 038 063 067 degrees QTc Int : 406 ms Normal sinus rhythm Normal ECG When compared with ECG of 27-APR-2022 07:20, Vent. rate has decreased BY 33 BPM Criteria for Septal infarct are no longer Present T wave inversion no longer evident in Anterior leads Confirmed by Aakash Ruff ([id number]) on 05/01/2022 1:39:37 PM Referred By: REFERRED SELF Confirmed By:Aakash Ruff
[2022-05-01] MEDS: ENOXAPARIN INJ 40 MG/0.4 ML SYR SQ SCH (14:08)
[2022-05-01] MEDS: dilTIAZem HCL 30 MG TAB PO SCH (17:04)
[2022-05-01] MEDS ORDERED: FAMOTIDINE IV SCH ×2 (21:00)
[2022-05-01] MEDS: LANTUS PER UNIT CHARGE SQ SCH (22:34)
[2022-05-01] MEDS: rOPINIRole HCL 2 MG TABLET PO SCH (22:51)
[2022-05-01] MEDS: SERTRALINE HCL 50 MG TABLET PO SCH (22:52)
[2022-05-02] MEDS: ondansetron HCL 6 MG in DEXTROSE 5% 50 ML IV PRN (00:30)
[2022-05-02] MEDS: HYDROmorphone INJ 1 MG/ML SYRINGE IV PRN ×5 (00:32→19:20)
[2022-05-02] MEDS: MELATONIN 3 MG TAB PO PRN ×2 (00:45→21:36)
[2022-05-02] MEDS: DOXYCYCLINE HYCLATE 100 MG CAP PO SCH ×2 (06:11→21:17)
[2022-05-02] MEDS: SUCRALFATE 1 GM/10 ML UDC PO SCH ×4 (08:17→21:16)
[2022-05-02] MEDS: THIAMINE HCL 100 MG TAB PO SCH (08:18)
[2022-05-02] MEDS: METOPROLOL SUCC 50MG EXT REL TAB PO SCH (08:18)
[2022-05-02] MEDS: MULTIVITAMIN TAB PO SCH (08:18)
[2022-05-02] MEDS: CLOPIDOGREL BISULFATE 75 MG TAB PO SCH (08:18)
[2022-05-02] MEDS: dilTIAZem HCL 30 MG TAB PO SCH ×3 (08:19→19:22)
[2022-05-02] MEDS: METOCLOPRAMIDE HCL 5 MG TABLET PO SCH ×3 (08:20→18:41)
[2022-05-02] MEDS: cephALEXin 500 MG CAP PO SCH ×4 (08:20→21:16)
[2022-05-02] MEDS: ASPIRIN 81 MG ECTAB PO SCH (08:24)
[2022-05-02] MEDS: DICLOFENAC SOD 1% GEL 100 GM TUBE EXT SCH ×4 (08:26→21:17)
--- NOTE | 2022-05-02 08:26 | Hospitalist Progress Note ---
Date of Service May 02, 2022 Assessment & Plan (1) Globus pharyngeus: Plan: In the setting of her COVID infection and recent severe nausea/emesis from COVID. suspect esophageal spasm/irritation causing her symptoms. anxiety could be contributing. doubt pulmonary in etiology. doubt cardiac in etiology - EKG stable, and troponin (checked several hours after the event) was very normal. she experienced relief of symptoms with diltiazem 30mg IR x 1. will schedule diltiazem 30mg po AC. this will also help her HTN. globus has resolved, will consider switch to long acting diltiazem 05/04/22 (2) Nausea & vomiting: Plan: presenting symptoms of her COVID illness resolved [facility] consulted - EGD deferred; simply cont PPI + H2 justin and anti-emetics per their recs (3) COVID-19: Plan: Mainly manifested by GI symptoms including N/V. Had presented with such. GI symptoms improved with various anti-emetics. Now eating regular diet. See #1 above regarding possible esophageal spasm. no indication for Remdesivir or Dexamethasone. cont airborne isolation & supportive care. no pneumonia seen on imaging (4) Infection of left great toe due to methicillin resistant Staphylococcus aureus (MRSA): Plan: multiple admissions for the L great toe over the last 1-2 months. most recent procedure was on 04/14/[address] Montaño with - 1. Left foot great toe subungual abscess incision and drainage. 2. Removal of nail plate with matrixectomy, great toe. 3. Debridement of great toe ulcer 3.0 cm x 2.0 cm x 0.3 cm including skin, dermis, and subcutaneous tissue. MRI foot on 04/10/22 did NOT show osteomyelitis of L first toe. the wound on the L first toe today is the best it has looked in weeks. when she left the hospital recently she was taking a combination of PO keflex with doxycycline. was placed on IV daptomycin this admission due to concerns for PO intolerance of her antibiotics. now that she is taking PO and having no further N/V transtioned from IV daptomycin to keflex/doxy. of note - culture from L great toe grew MRSA on 03/11/22. Last 2 cultures including this admission's culture have been negative for bacterial pathogens. (5) Diastolic CHF: Plan: prior attending provided gentle diuresis for suspected acute diastolic CHF. appears euvolemic today. no further diuresis. (6) Diabetes mellitus type 2, uncontrolled: Plan: controlled with lantus-novolog a1c 8.7% in March 2022 (7) HTN (hypertension): Plan: labile added diltiazem 30mg before meals -- transtion to long acting cont metoprolol succinate 50mg qam as well (8) Anemia: Plan: 2nd to Fe Deficiency DID receive without incident IV iron during prior stay (Injectafer) has "allergy" to IV Venofer H/H remain acceptable (9) Hyperlipidemia: Plan: not on meds for such (10) Hyponatremia: Plan: 130 at presentation thought to be hypovolemic hyponatremia in setting of vomiting now 134 and tolerating PO intake (11) DVT prophylaxis: Plan: lovenox daily (12) Chronic pain syndrome: Plan: cont oxycodone 15mg BID per home regimen (13) Insomnia: Plan: ambien prn HS long-standing issue (14) History of right below knee amputation: (15) History of cardiac cath: Plan: 09/22/19 - [facility]; LM - mild luminal irregularities. LAD - mid 20-30%, distal with myocardial bridge & 30% stenosis. L Cx - mild luminal irregularities. RCA - proximal <30% stenosis; mid/distal vessel mild plaques. PDA - mild luminal irregularities Admission and Anticipated Discharge Date Admission Date: April 27, 2022 Subjective pt is no longer complaining of globus sensation, her breathing is stable and improved, and I looked at her toe and this looks to be healing well Review of Systems Review of Systems: Mild distress and fatigue no headache, no visual changes no speech or swallowing issues no chest pain, pressure or palpitations Minimal shortness of breath, nonproductive cough no abdominal pain, nausea or vomiting, diarrhea or constipation no dysuria, hematuria or frequency Phantom pain to her amputated extremity in the right some pain to her left great toe no back pain, CVA tenderness or radicular pain no bruising, bleeding or rashes no focal signs of weakness or numbness or altered sensation no complaints of anxiety or depression.. Physical Exam Physical Exam: The patient appeared well nourished and normally developed. Vital signs as documented. Head exam is normocephalic atraumatic Neck is without JVD, thyromegaly, or carotid bruits. Lungs are clear to auscultation, no focal loss of breath sounds Cardiac exam, Rhythm is regular.. No murmurs, rubs or gallops. Abdominal exam reveals normal bowel sounds, soft non tender, no masses Patient is a foot was examined there is some sutures in place to her left great toe there is an area of healing just inferior to it proximately 1 cm x 3 cm this is healing well Xeroform was replaced and wound was redressed Neurologic exam is alert and oriented, neuropathy of distal left leg phantom pain and right Skin is with healing as would be expected post procedure Psychologically is without concerns for anxiety or depression.. Results & Data Results & Data ([facility]) Vital Signs (Past 12 Hours) Vital Signs Temp Pulse Resp BP BP Pulse Ox O2 Del Method 05/02/22 08:12 98.1 F 69 16 130/73 97 Room Air 05/01/22 21:00 Room Air 05/01/22 20:59 98.2 F 60 20 145/72 H 95 Room Air PG Care Time/CCT Total # of Minutes Spent Total Time Spent with Patient: Total time spent is greater than 50% in coordination of care (as documented) at patient's floor/unit and/or counseling patient: Coding Level of Care Code 42378 Subseq Hosp Care Lvl 3 Diagnoses Globus pharyngeus R09.89 Nausea & vomiting R11.2 Vomiting type: unspecified COVID-19 U07.1 Infection of left great toe due to methicillin resistant Staphylococcus aureus (MRSA) L08.9; B95.62 Diastolic CHF I50.30 Diabetes mellitus type 2, uncontrolled E11.65 HTN (hypertension) I10 Anemia D64.9 Hyperlipidemia E78.5 Hyperlipidemia type: unspecified Hyponatremia E87.1 DVT prophylaxis Z29.9 Chronic pain syndrome G89.4 Insomnia G47.00 History of right below knee amputation Z89.511 History of cardiac cath Z98.890 (1) Hyperlipidemia Hyperlipidemia type: unspecified Qualified Code(s): E78.5 - Hyperlipidemia, unspecified (2) Nausea & vomiting Vomiting type: unspecified Qualified Code(s): R11.2 - Nausea with vomiting, unspecified
[2022-05-02] MEDS ORDERED: DAPTOmycin 400 MG in SYRINGE 0 ML IV SCH (09:00)
[2022-05-02] MEDS ORDERED: DOXYCYCLINE HYCLATE 100 MG CAP PO SCH (09:00)
[2022-05-02 09:03] LABS: Basophils # (auto) 0.02 K/uL (0-0.2); Basophils % (auto) 0.3 %; Eosinophils # (auto) 0.09 K/uL (0-0.50); Eosinophils % (auto) 1.3 %; Hematocrit (blood only) 33.6 % (34.1-44.9); Hemoglobin 10.4 g/dl (12.0-16.0); Immature Granulocytes # (auto) 0.02 K/uL (0.00-0.02); Immature Granulocytes % (auto) 0.3 %; Lymphocytes # (auto) 2.13 K/uL (1.2-3.4); Lymphocytes % (auto) 31.4 %; Mean Corpuscular Hemoglobin 24.4 pg (25.0-34.0); Mean Corpuscular Volume 78.7 fL (80.0-100.0); Mean Platelet Volume 10.3 fL (9.4-12.3); Monocytes % (auto) 8.8 %; Neutrophils # (auto) 3.93 K/uL (1.4-6.5); Neutrophils % (auto) 57.9 %; Platelet Count 179 K/uL (130-400); RDW Coefficient of Variation 20.1 % (11.5-14.5); RDW Standard Deviation 56.9 fL (36.4-46.3); Red Blood Count 4.27 M/uL (3.93-5.22); White Blood Count 6.79 K/ul (4.8-10.8)
[2022-05-02] MEDS: ALUMINUM/MAGNESIUM/SIMETH (MAALOX MAX) 30 ML UDC PO SCH ×3 (09:07→18:38)
[2022-05-02] MEDS: hydrOXYzine HCl 25 MG TAB PO SCH (09:08)
[2022-05-02] MEDS: PREGABALIN 100 MG CAP PO SCH ×3 (09:08→21:36)
[2022-05-02] MEDS: oxyCODONE HCL IR 5 MG TAB (IMMEDIATE RELEASE) PO SCH ×2 (09:08→21:36)
[2022-05-02 09:27] LABS: Anisocytosis Present
[2022-05-02 09:31] LABS: BUN Creatinine Ratio 31.7 (10-20); Calcium 8.8 mg/dl (8.5-10.1); Creatinine Clr Calc Pharmacy 93.8 ml/min; Est GFR (African American) 117.3 ml/min; Est GFR (Non-African American) 101.2 ml/min; Potassium 4.5 mmol/L (3.5-5.1)
[2022-05-02] MEDS: INSULIN ASPART PER UNIT SC SCH ×4 (09:34→21:36)
[2022-05-02] MEDS: PANTOprazole 40 MG in SYRINGE 0 ML IV SCH ×2 (11:39→21:16)
[2022-05-02] MEDS: FAMOTIDINE 20 MG in SYRINGE 3 ML IV SCH ×2 (14:14→21:36)
[2022-05-02] MEDS: ENOXAPARIN INJ 40 MG/0.4 ML SYR SQ SCH (14:22)
[2022-05-02] MEDS: SERTRALINE HCL 50 MG TABLET PO SCH (21:16)
[2022-05-02] MEDS: rOPINIRole HCL 2 MG TABLET PO SCH (21:17)
[2022-05-02] MEDS: LANTUS PER UNIT CHARGE SQ SCH (21:59)
[2022-05-03] MEDS: HYDROmorphone INJ 1 MG/ML SYRINGE IV PRN ×6 (00:11→23:19)
[2022-05-03] MEDS: DOXYCYCLINE HYCLATE 100 MG CAP PO SCH ×2 (04:35→21:53)
[2022-05-03] MEDS: PREGABALIN 100 MG CAP PO SCH ×3 (08:53→22:16)
[2022-05-03] MEDS: SUCRALFATE 1 GM/10 ML UDC PO SCH ×4 (08:59→21:53)
[2022-05-03] MEDS: dilTIAZem HCL 30 MG TAB PO SCH ×3 (08:59→16:56)
[2022-05-03] MEDS: METOCLOPRAMIDE HCL 5 MG TABLET PO SCH ×3 (08:59→16:56)
[2022-05-03] MEDS: THIAMINE HCL 100 MG TAB PO SCH (09:00)
[2022-05-03] MEDS: cephALEXin 500 MG CAP PO SCH ×4 (09:00→21:54)
[2022-05-03] MEDS: FAMOTIDINE 20 MG in SYRINGE 3 ML IV SCH ×2 (09:00→22:16)
[2022-05-03] MEDS: MULTIVITAMIN TAB PO SCH (09:00)
[2022-05-03] MEDS: CLOPIDOGREL BISULFATE 75 MG TAB PO SCH (09:00)
[2022-05-03] MEDS: ASPIRIN 81 MG ECTAB PO SCH (09:00)
[2022-05-03] MEDS: METOPROLOL SUCC 50MG EXT REL TAB PO SCH (09:00)
[2022-05-03] MEDS: PANTOprazole 40 MG in SYRINGE 0 ML IV SCH ×2 (09:00→22:16)
[2022-05-03] MEDS: DICLOFENAC SOD 1% GEL 100 GM TUBE EXT SCH ×4 (09:01→21:56)
[2022-05-03] MEDS: INSULIN ASPART PER UNIT SC SCH ×4 (09:11→23:53)
[2022-05-03] MEDS: oxyCODONE HCL IR 5 MG TAB (IMMEDIATE RELEASE) PO SCH ×2 (10:21→21:54)
[2022-05-03] MEDS: hydrOXYzine HCl 25 MG TAB PO SCH (10:21)
[2022-05-03] MEDS: ALUMINUM/MAGNESIUM/SIMETH (MAALOX MAX) 30 ML UDC PO SCH ×3 (10:22→16:56)
[2022-05-03] MEDS: ondansetron HCL 6 MG in DEXTROSE 5% 50 ML IV PRN (10:22)
[2022-05-03] MEDS: ENOXAPARIN INJ 40 MG/0.4 ML SYR SQ SCH (15:23)
[2022-05-03] MEDS ORDERED: ALBUTEROL 0.5% NEB SOLN 2.5 MG/0.5 ML VIAL NEB STA (15:44)
--- NOTE | 2022-05-03 19:30 | Hospitalist Progress Note ---
Date of Service May 03, 2022 Assessment & Plan (1) Nausea & vomiting: Plan: presenting symptoms of her COVID illness Persistent intermittent likely influenced by diabetic gastroparesis [facility] consulted - EGD deferred; simply cont PPI + H2 justin and anti-emetics per their recs (2) COVID-19: Plan: Mainly manifested by GI symptoms including N/V. Had presented with such. GI symptoms improved with various anti-emetics. Now eating regular diet. See #1 above regarding possible esophageal spasm. no indication for Remdesivir or Dexamethasone. cont airborne isolation & supportive care. no pneumonia seen on imaging (3) Infection of left great toe due to methicillin resistant Staphylococcus aureus (MRSA): Plan: multiple admissions for the L great toe over the last 1-2 months. most recent procedure was on 04/14/[address] Montaño with - 1. Left foot great toe subungual abscess incision and drainage. 2. Removal of nail plate with matrixectomy, great toe. 3. Debridement of great toe ulcer 3.0 cm x 2.0 cm x 0.3 cm including skin, dermis, and subcutaneous tissue. MRI foot on 04/10/22 did NOT show osteomyelitis of L first toe. the wound on the L first toe today is the best it has looked in weeks. when she left the hospital recently she was taking a combination of PO keflex with doxycycline. was placed on IV daptomycin this admission due to concerns for PO intolerance of her antibiotics. now that she is taking PO and having no further N/V transtioned from IV daptomycin to keflex/doxy. Antibiotics may be contributing to some her nausea and vomiting we will continue to watch particularly the doxycycline of note - culture from L great toe grew MRSA on 03/11/22. Last 2 cultures including this admission's culture have been negative for bacterial pathogens. (4) Globus pharyngeus: Plan: Resolved in the setting of her COVID infection and recent severe nausea/emesis from COVID. suspect esophageal spasm/irritation causing her symptoms. anxiety could be contributing. she experienced relief of symptoms with diltiazem 30mg IR x 1. Discontinued diltiazem without recurrence of symptoms (5) Diastolic CHF: Plan: prior attending provided gentle diuresis for suspected acute diastolic CHF. appears euvolemic today. no further diuresis. (6) Diabetes mellitus type 2, uncontrolled: Plan: controlled with lantus-novolog a1c 8.7% in March 2022 (7) HTN (hypertension): Plan: labile added diltiazem 30mg before meals -- transtion to long acting cont metoprolol succinate 50mg qam as well (8) Anemia: Plan: 2nd to Fe Deficiency DID receive without incident IV iron during prior stay (Injectafer) has "allergy" to IV Venofer H/H remain acceptable (9) Hyperlipidemia: Plan: not on meds for such (10) Hyponatremia: Plan: 130 at presentation thought to be hypovolemic hyponatremia in setting of vomiting now 134 and tolerating PO intake (11) DVT prophylaxis: Plan: lovenox daily (12) Chronic pain syndrome: Plan: cont oxycodone 15mg BID per home regimen (13) Insomnia: Plan: ambien prn HS long-standing issue (14) History of right below knee amputation: (15) History of cardiac cath: Plan: 09/22/19 - [facility]; LM - mild luminal irregularities. LAD - mid 20-30%, distal with myocardial bridge & 30% stenosis. L Cx - mild luminal irregularities. RCA - proximal <30% stenosis; mid/distal vessel mild plaques. PDA - mild luminal irregularities Admission and Anticipated Discharge Date Admission Date: April 27, 2022 Subjective pt is no longer complaining of globus sensation, her breathing is stable and improved, patient states she does not feel well today she is mostly nauseated with a flareup of her chronic pain specifically her back pain today Review of Systems Review of Systems: Mild distress and fatigue no headache, no visual changes no speech or swallowing issues no chest pain, pressure or palpitations Minimal shortness of breath, nonproductive cough no abdominal pain, planing of nausea without vomiting no dysuria, hematuria or frequency Phantom pain to her amputated extremity in the right some pain to her left great toe Lumbar back pain across her back without radiation [place] positional no bruising, bleeding or rashes no focal signs of weakness or numbness or altered sensation no complaints of anxiety or depression.. Physical Exam Physical Exam: The patient appeared well nourished and normally developed. Vital signs as documented. Head exam is normocephalic atraumatic Neck is without JVD, thyromegaly, or carotid bruits. Lungs are clear to auscultation, no focal loss of breath sounds Cardiac exam, Rhythm is regular.. No murmurs, rubs or gallops. Abdominal exam reveals normal bowel sounds, soft non tender, no masses Patient has a dressing on her foot today patient has palpable back pain which is worse upon direct outpatient and position Neurologic exam is alert and oriented, neuropathy of distal left leg phantom pain and right Skin is with healing as would be expected post procedure Psychologically is without concerns for anxiety or depression.. Results & Data Results & Data ([facility]) Vital Signs (Past 12 Hours) Vital Signs Temp Pulse Resp BP BP Pulse Ox Pulse Ox 05/03/22 17:31 99.1 F 05/03/22 16:55 63 18 163/71 H 100 05/03/22 15:59 62 17 96 05/03/22 08:15 05/03/22 10:29 95 05/03/22 08:41 98.1 F 68 18 143/74 H 95 O2 Del Method O2 Del Method 05/03/22 17:31 05/03/22 16:55 Room Air 05/03/22 15:59 Room Air 05/03/22 08:15 Room Air 05/03/22 10:29 Room Air 05/03/22 08:41 Room Air PG Care Time/CCT Total # of Minutes Spent Total Time Spent with Patient: Total time spent is greater than 50% in coordination of care (as documented) at patient's floor/unit and/or counseling patient: Coding Level of Care Code 60391 Subseq Hosp Care Lvl 2 Diagnoses Nausea & vomiting R11.2 Vomiting type: unspecified COVID-19 U07.1 Infection of left great toe due to methicillin resistant Staphylococcus aureus (MRSA) L08.9; B95.62 Globus pharyngeus R09.89 Diastolic CHF I50.30 Diabetes mellitus type 2, uncontrolled E11.65 HTN (hypertension) I10 Anemia D64.9 Hyperlipidemia E78.5 Hyperlipidemia type: unspecified Hyponatremia E87.1 DVT prophylaxis Z29.9 Chronic pain syndrome G89.4 Insomnia G47.00 History of right below knee amputation Z89.511 History of cardiac cath Z98.890 (1) Nausea & vomiting Vomiting type: unspecified Qualified Code(s): R11.2 - Nausea with vomiting, unspecified (2) Hyperlipidemia Hyperlipidemia type: unspecified Qualified Code(s): E78.5 - Hyperlipidemia, unspecified
[2022-05-03] MEDS: LANTUS PER UNIT CHARGE SQ SCH (21:40)
[2022-05-03] MEDS: SERTRALINE HCL 50 MG TABLET PO SCH (21:54)
[2022-05-03] MEDS: rOPINIRole HCL 2 MG TABLET PO SCH (21:54)
[2022-05-03] MEDS: MELATONIN 3 MG TAB PO PRN (21:54)
[2022-05-03] MEDS: LORazepam 1 MG TAB PO PRN (23:34)
[2022-05-03] MEDS: ZOLPIDEM TARTRATE 10 MG TAB PO PRN (23:34)
[2022-05-04] MEDS: HYDROmorphone INJ 1 MG/ML SYRINGE IV PRN ×6 (03:34→23:56)
[2022-05-04] MEDS: DOXYCYCLINE HYCLATE 100 MG CAP PO SCH ×2 (05:53→20:55)
[2022-05-04] MEDS: hydrOXYzine HCl 25 MG TAB PO SCH (08:13)
[2022-05-04] MEDS: PANTOprazole 40 MG in SYRINGE 0 ML IV SCH ×2 (08:13→20:53)
[2022-05-04] MEDS: PREGABALIN 100 MG CAP PO SCH ×3 (08:13→20:54)
[2022-05-04] MEDS: ALUMINUM/MAGNESIUM/SIMETH (MAALOX MAX) 30 ML UDC PO SCH ×3 (08:13→17:07)
[2022-05-04] MEDS: FAMOTIDINE 20 MG in SYRINGE 3 ML IV SCH ×2 (08:13→21:26)
[2022-05-04] MEDS: MULTIVITAMIN TAB PO SCH (08:14)
[2022-05-04] MEDS: METOCLOPRAMIDE HCL 5 MG TABLET PO SCH ×3 (08:14→17:08)
[2022-05-04] MEDS: THIAMINE HCL 100 MG TAB PO SCH (08:14)
[2022-05-04] MEDS: CLOPIDOGREL BISULFATE 75 MG TAB PO SCH (08:14)
[2022-05-04] MEDS: ASPIRIN 81 MG ECTAB PO SCH (08:15)
[2022-05-04] MEDS: METOPROLOL SUCC 50MG EXT REL TAB PO SCH (08:15)
[2022-05-04] MEDS: SUCRALFATE 1 GM/10 ML UDC PO SCH ×4 (08:16→20:55)
[2022-05-04] MEDS: cephALEXin 500 MG CAP PO SCH ×4 (08:16→20:55)
[2022-05-04] MEDS: DICLOFENAC SOD 1% GEL 100 GM TUBE EXT SCH ×4 (08:16→20:55)
[2022-05-04] MEDS: dilTIAZem HCL 30 MG TAB PO SCH ×3 (08:16→17:08)
[2022-05-04 08:39] LABS: Anion Gap 3 (3-11); BUN Creatinine Ratio 33.3 (10-20); Blood Urea Nitrogen 22 mg/dl (6-23); Calcium 8.9 mg/dl (8.5-10.1); Carbon Dioxide 31 mmol/L (21-32); Chloride 103 mmol/L (98-107); Creatinine Clr Calc Pharmacy 85.2 ml/min; Est GFR (African American) 113.7 ml/min; Est GFR (Non-African American) 98.1 ml/min; Glucose 73 mg/dl (70-99(Fasting)); Potassium 4.6 mmol/L (3.5-5.1); Sodium 137 mmol/L (136-145)
[2022-05-04 08:41] LABS: Alanine Aminotransferase 19 U/L (7-52); Albumin Globulin Ratio 1.5 (0.9-2); Albumin Level 3.8 gm/dl (3.4-5.0); Alkaline Phosphatase 95 U/L (34-104); Aspartate Aminotransferase 11 U/L (13-39); Bilirubin,Total 0.4 mg/dl (0.2-1.0); Globulin 2.5 gm/dl (2.5-4.0); Lipase < 3 U/L (11-82); Total Protein 6.3 gm/dl (6.0-8.3)
[2022-05-04] MEDS: INSULIN ASPART PER UNIT SC SCH ×4 (08:43→22:12)
[2022-05-04] MEDS: oxyCODONE HCL IR 5 MG TAB (IMMEDIATE RELEASE) PO SCH ×2 (10:03→20:54)
[2022-05-04] MEDS: ENOXAPARIN INJ 40 MG/0.4 ML SYR SQ SCH (13:02)
--- NOTE | 2022-05-04 17:42 | Hospitalist Progress Note ---
Date of Service May 04, 2022 Assessment & Plan (1) Nausea & vomiting: Plan: presenting symptoms of her COVID illness, now resolved Persistent intermittent likely influenced by diabetic gastroparesis [facility] consulted - EGD deferred; simply cont PPI + H2 justin and anti-emetics per their recs (2) COVID-19: Plan: Mainly manifested by GI symptoms including N/V. Had presented with such. GI symptoms improved with various anti-emetics. Now eating regular diet. no indication for Remdesivir or Dexamethasone. cont airborne isolation & supportive care. no pneumonia seen on imaging (3) Infection of left great toe due to methicillin resistant Staphylococcus aureus (MRSA): Plan: multiple admissions for the L great toe over the last 1-2 months. most recent procedure was on 04/14/[address] Montaño with - 1. Left foot great toe subungual abscess incision and drainage. 2. Removal of nail plate with matrixectomy, great toe. 3. Debridement of great toe ulcer 3.0 cm x 2.0 cm x 0.3 cm including skin, dermis, and subcutaneous tissue. MRI foot on 04/10/22 did NOT show osteomyelitis of L first toe. now that she is taking PO and having no further N/V transitioned from IV daptomycin to keflex/doxy. Antibiotics may be contributing to some her nausea and vomiting we will continue to watch particularly the doxycycline of note - culture from L great toe grew MRSA on 03/11/22. Last 2 cultures including this admission's culture have been negative for bacterial pathogens. (4) Globus pharyngeus: Plan: Resolved in the setting of her COVID infection and recent severe nausea/emesis from COVID. suspect esophageal spasm/irritation causing her symptoms. anxiety could be contributing. she experienced relief of symptoms with diltiazem 30mg IR x 1. Discontinued diltiazem without recurrence of symptoms (5) Diastolic CHF: Plan: prior attending provided gentle diuresis for suspected acute diastolic CHF. appears euvolemic today. no further diuresis. (6) Diabetes mellitus type 2, uncontrolled: Plan: controlled with lantus-novolog a1c 8.7% in March 2022 (7) HTN (hypertension): Plan: cont metoprolol succinate 50mg qam as well (8) Anemia: Plan: 2nd to Fe Deficiency DID receive without incident IV iron during prior stay (Injectafer) has "allergy" to IV Venofer H/H remain acceptable (9) Hyperlipidemia: Plan: not on meds for such (10) Hyponatremia: Plan: 130 at presentation improved thought to be hypovolemic hyponatremia in setting of vomiting now 134 and tolerating PO intake (11) DVT prophylaxis: Plan: lovenox daily (12) Chronic pain syndrome: Plan: cont oxycodone 15mg BID per home regimen (13) History of right below knee amputation: (14) History of cardiac cath: Plan: 09/22/[address] - [facility]; LM - mild luminal irregularities. LAD - mid 20-30%, distal with myocardial bridge & 30% stenosis. L Cx - mild luminal irregularities. RCA - proximal <30% stenosis; mid/distal vessel mild plaques. PDA - mild luminal irregularities Admission and Anticipated Discharge Date Admission Date: April 27, 2022 Subjective pt is no longer complaining of globus sensation, her breathing is stable and improved, resolution of nausea and flareup of her chronic pain today she is complaining of weakness and chalky stool, bilirubin is stable no abdominal pain Review of Systems Review of Systems: Mild distress and fatigue no headache, no visual changes no speech or swallowing issues no chest pain, pressure or palpitations no shortness of breath, cough or wheezes no abdominal pain, nausea or vomiting, no dysuria, hematuria or frequency no focal joint pain or swelling chronic daily back pain, CVA tenderness or radicular pain no bruising, bleeding or rashes no focal signs of weakness or numbness or altered sensation no complaints of anxiety or depression.. Physical Exam Physical Exam: The patient appeared well nourished and normally developed. Vital signs as documented. Head exam is normocephalic atraumatic Neck is without JVD, thyromegaly, or carotid bruits. Lungs are clear to auscultation, no focal loss of breath sounds Cardiac exam, Rhythm is regular.. No murmurs, rubs or gallops. Abdominal exam reveals normal bowel sounds, soft non tender, no masses Patient is a foot was examined 05/04 there is some sutures in place to her left great toe there is an area of healing just inferior to it proximately 1 cm x 3 cm this is healing well Xeroform was replaced and wound was redressed Neurologic exam is alert and oriented, neuropathy of distal left leg phantom p ain and right Skin is with healing as would be expected post procedure Psychologically is without concerns for anxiety or depression.. Results & Data Results & Data ([facility]) Vital Signs (Past 12 Hours) Vital Signs Temp Pulse Resp BP Pulse Ox O2 Del Method 05/04/22 08:10 Room Air 05/04/22 08:05 98.4 F 64 18 119/72 93 Room Air PG Care Time/CCT Total # of Minutes Spent Total Time Spent with Patient: Total time spent is greater than 50% in coordination of care (as documented) at patient's floor/unit and/or counseling patient: Coding Level of Care Code 09427 Subseq Hosp Care Lvl 2 Diagnoses Nausea & vomiting R11.2 Vomiting type: unspecified COVID-19 U07.1 Infection of left great toe due to methicillin resistant Staphylococcus aureus (MRSA) L08.9; B95.62 Globus pharyngeus R09.89 Diastolic CHF I50.30 Diabetes mellitus type 2, uncontrolled E11.65 HTN (hypertension) I10 Anemia D64.9 Hyperlipidemia E78.5 Hyperlipidemia type: unspecified Hyponatremia E87.1 DVT prophylaxis Z29.9 Chronic pain syndrome G89.4 History of right below knee amputation Z89.511 History of cardiac cath Z98.890 (1) Nausea & vomiting Vomiting type: unspecified Qualified Code(s): R11.2 - Nausea with vomiting, unspecified (2) Hyperlipidemia Hyperlipidemia type: unspecified Qualified Code(s): E78.5 - Hyperlipidemia, unspecified
[2022-05-04] MEDS: MELATONIN 3 MG TAB PO PRN (20:54)
[2022-05-04] MEDS: ondansetron HCL 6 MG in DEXTROSE 5% 50 ML IV PRN (20:54)
[2022-05-04] MEDS: ZOLPIDEM TARTRATE 10 MG TAB PO PRN (20:54)
[2022-05-04] MEDS: rOPINIRole HCL 2 MG TABLET PO SCH (20:56)
[2022-05-04] MEDS: SERTRALINE HCL 50 MG TABLET PO SCH (20:56)
[2022-05-04] MEDS: LANTUS PER UNIT CHARGE SQ SCH (22:13)
[2022-05-05] MEDS: HYDROmorphone INJ 1 MG/ML SYRINGE IV PRN ×6 (00:17→20:04)
[2022-05-05] MEDS: DOXYCYCLINE HYCLATE 100 MG CAP PO SCH (04:14)
[2022-05-05] MEDS: PANTOprazole 40 MG in SYRINGE 0 ML IV SCH (08:11)
[2022-05-05] MEDS: FAMOTIDINE 20 MG in SYRINGE 3 ML IV SCH (08:11)
[2022-05-05] MEDS: ALUMINUM/MAGNESIUM/SIMETH (MAALOX MAX) 30 ML UDC PO SCH ×3 (08:11→16:33)
[2022-05-05] MEDS: METOCLOPRAMIDE HCL 5 MG TABLET PO SCH ×5 (08:12→20:09)
[2022-05-05] MEDS: dilTIAZem HCL 30 MG TAB PO SCH ×2 (08:12→12:10)
[2022-05-05] MEDS: INSULIN ASPART PER UNIT SC SCH ×4 (08:35→21:06)
[2022-05-05] MEDS: PREGABALIN 100 MG CAP PO SCH ×3 (09:33→20:09)
[2022-05-05] MEDS: oxyCODONE HCL IR 5 MG TAB (IMMEDIATE RELEASE) PO SCH ×2 (09:33→20:05)
[2022-05-05] MEDS: ASPIRIN 81 MG ECTAB PO SCH (09:34)
[2022-05-05] MEDS: cephALEXin 500 MG CAP PO SCH ×2 (09:34→12:10)
[2022-05-05] MEDS: MULTIVITAMIN TAB PO SCH (09:34)
[2022-05-05] MEDS: DICLOFENAC SOD 1% GEL 100 GM TUBE EXT SCH ×4 (09:34→20:04)
[2022-05-05] MEDS: THIAMINE HCL 100 MG TAB PO SCH (09:35)
[2022-05-05] MEDS: CLOPIDOGREL BISULFATE 75 MG TAB PO SCH (09:35)
[2022-05-05] MEDS: METOPROLOL SUCC 50MG EXT REL TAB PO SCH (09:36)
[2022-05-05] MEDS: SUCRALFATE 1 GM/10 ML UDC PO SCH ×2 (09:37→12:10)
[2022-05-05] MEDS: hydrOXYzine HCl 25 MG TAB PO SCH (09:43)
[2022-05-05] MEDS: ondansetron HCL 6 MG in DEXTROSE 5% 50 ML IV PRN (12:09)
[2022-05-05] MEDS: ENOXAPARIN INJ 40 MG/0.4 ML SYR SQ SCH (14:48)
--- NOTE | 2022-05-05 17:56 | Hospitalist Progress Note ---
Date of Service May 05, 2022 Assessment & Plan (1) Nausea & vomiting: Plan: presenting symptoms of her COVID illness, now resolved Persistent intermittent likely influenced by diabetic gastroparesis and perhaps doxycycline will stop [facility] consulted - EGD deferred; will have on ppi, consider reglan for diabetic gastroparesis and stop doxycycline as maybe causing nausea (2) COVID-19: Plan: Mainly manifested by GI symptoms including N/V. Had presented with such. GI symptoms improved with various anti-emetics. Now eating regular diet. no indication for Remdesivir or Dexamethasone. cont airborne isolation & supportive care. no pneumonia seen on imaging (3) Infection of left great toe due to methicillin resistant Staphylococcus aureus (MRSA): Plan: multiple admissions for the L great toe over the last 1-2 months. most recent procedure was on 04/14/[address] Montaño with -will need sutures out 1. Left foot great toe subungual abscess incision and drainage. 2. Removal of nail plate with matrixectomy, great toe. 3. Debridement of great toe ulcer 3.0 cm x 2.0 cm x 0.3 cm including skin, dermis, and subcutaneous tissue. MRI foot on 04/10/22 did NOT show osteomyelitis of L first toe. of note - culture from L great toe grew MRSA on 03/11/22. Last 2 cultures including this admission's culture have been negative for bacterial pathogens. (4) Diastolic CHF: Plan: prior attending provided gentle diuresis for suspected acute diastolic CHF. appears euvolemic today. no further diuresis. (5) Diabetes mellitus type 2, uncontrolled: Plan: controlled with lantus-novolog a1c 8.7% in March 2022 (6) HTN (hypertension): Plan: cont metoprolol succinate 50mg qam (7) Globus pharyngeus: Plan: Resolved in the setting of her COVID infection and recent severe nausea/emesis from COVID. suspect esophageal spasm/irritation causing her symptoms. anxiety could be contributing. she experienced relief of symptoms with diltiazem 30mg IR x 1. Discontinued diltiazem without recurrence of symptoms (8) Anemia: Plan: 2nd to Fe Deficiency DID receive without incident IV iron during prior stay (Injectafer) has "allergy" to IV Venofer H/H remain acceptable (9) Hyperlipidemia: Plan: not on meds for such (10) Hyponatremia: Plan: 130 at presentation improved thought to be hypovolemic hyponatremia in setting of vomiting now 134 and tolerating PO intake (11) DVT prophylaxis: Plan: lovenox daily (12) Chronic pain syndrome: Plan: cont oxycodone 15mg BID per home regimen (13) History of right below knee amputation: (14) History of cardiac cath: Plan: 09/22/19 - [facility]; LM - mild luminal irregularities. LAD - mid 20-30%, distal with myocardial bridge & 30% stenosis. L Cx - mild luminal irregularities. RCA - proximal <30% stenosis; mid/distal vessel mild plaques. PDA - mild luminal irregularities Admission and Anticipated Discharge Date Admission Date: April 27, 2022 Subjective pt has some persistent abdominal pain, for 2 days, this maybe the doxycycline, infection is cleared up will stop Review of Systems Review of Systems: Mild distress and fatigue no headache, no visual changes no speech or swallowing issues no chest pain, pressure or palpitations no shortness of breath, cough or wheezes no abdominal pain, nausea or vomiting, no dysuria, hematuria or frequency no focal joint pain or swelling chronic daily back pain, CVA tenderness or radicular pain no bruising, bleeding or rashes no focal signs of weakness or numbness or altered sensation no complaints of anxiety or depression.. Physical Exam 2 Physical Exam: The patient appeared well nourished and normally developed. Vital signs as documented. Head exam is normocephalic atraumatic Neck is without JVD, thyromegaly, or carotid bruits. Lungs are clear to auscultation, no focal loss of breath sounds Cardiac exam, Rhythm is regular.. No murmurs, rubs or gallops. Abdominal exam reveals normal bowel sounds, soft non tender, no masses Patient is a foot was examined 05/04 there is some sutures in place to her left great toe there is an area of healing just inferior to it proximately 1 cm x 3 cm this is healing well Xeroform was replaced and wound was redressed Neurologic exam is alert and oriented, neuropathy of distal left leg phantom pain and right Skin is with healing as would be expected post procedure Psychologically is without concerns for anxiety or depression.. Results & Data Results & Data ([facility] [place]) Vital Signs (Past 12 Hours) Vital Signs Temp Pulse Resp BP BP Pulse Ox O2 Del Method 05/05/22 16:46 97.9 F 61 18 132/73 96 Room Air 05/05/22 07:38 98.2 F 71 16 154/73 H 92 PG Care Time/CCT Total # of Minutes Spent Total Time Spent with Patient: Total time spent is greater than 50% in coordination of care (as documented) at patient's floor/unit and/or counseling patient: Coding Level of Care Code 09456 Subseq Hosp Care Lvl 2 Diagnoses Nausea & vomiting R11.2 Vomiting type: unspecified COVID-19 U07.1 Infection of left great toe due to methicillin resistant Staphylococcus aureus (MRSA) L08.9; B95.62 Diastolic CHF I50.30 Diabetes mellitus type 2, uncontrolled E11.65 HTN (hypertension) I10 Globus pharyngeus R09.89 Anemia D64.9 Hyperlipidemia E78.5 Hyperlipidemia type: unspecified Hyponatremia E87.1 DVT prophylaxis Z29.9 Chronic pain syndrome G89.4 History of right below knee amputation Z89.511 History of cardiac cath Z98.890 (1) Nausea & vomiting Vomiting type: unspecified Qualified Code(s): R11.2 - Nausea with vomiting, unspecified (2) Hyperlipidemia Hyperlipidemia type: unspecified Qualified Code(s): E78.5 - Hyperlipidemia, unspecified
[2022-05-05] MEDS: SERTRALINE HCL 50 MG TABLET PO SCH (20:09)
[2022-05-05] MEDS: LORazepam 1 MG TAB PO PRN (20:09)
[2022-05-05] MEDS: rOPINIRole HCL 2 MG TABLET PO SCH (20:09)
[2022-05-05] MEDS: PANTOprazole 40 MG TAB PO SCH (20:09)
[2022-05-05] MEDS: MELATONIN 3 MG TAB PO PRN (20:09)
[2022-05-05] MEDS: ZOLPIDEM TARTRATE 10 MG TAB PO PRN (20:10)
[2022-05-05] MEDS: LANTUS PER UNIT CHARGE SQ SCH (21:06)
[2022-05-06] MEDS: HYDROmorphone INJ 1 MG/ML SYRINGE IV PRN ×6 (00:01→21:56)
[2022-05-06] MEDS: INSULIN ASPART PER UNIT SC SCH ×4 (08:51→20:32)
[2022-05-06] MEDS: DICLOFENAC SOD 1% GEL 100 GM TUBE EXT SCH ×4 (08:58→20:09)
[2022-05-06] MEDS: ALUMINUM/MAGNESIUM/SIMETH (MAALOX MAX) 30 ML UDC PO SCH ×3 (09:04→17:47)
[2022-05-06] MEDS: METOCLOPRAMIDE HCL 5 MG TABLET PO SCH ×4 (09:06→11:53)
[2022-05-06] MEDS: CLOPIDOGREL BISULFATE 75 MG TAB PO SCH (09:06)
[2022-05-06] MEDS: ASPIRIN 81 MG ECTAB PO SCH (09:06)
[2022-05-06] MEDS: hydrOXYzine HCl 25 MG TAB PO SCH (09:07)
[2022-05-06] MEDS: MULTIVITAMIN TAB PO SCH (09:07)
[2022-05-06] MEDS: METOPROLOL SUCC 50MG EXT REL TAB PO SCH (09:07)
[2022-05-06] MEDS: PREGABALIN 100 MG CAP PO SCH ×3 (09:07→20:10)
[2022-05-06] MEDS: PANTOprazole 40 MG TAB PO SCH ×2 (09:07→20:10)
[2022-05-06] MEDS: THIAMINE HCL 100 MG TAB PO SCH (09:07)
[2022-05-06] MEDS: oxyCODONE HCL IR 5 MG TAB (IMMEDIATE RELEASE) PO SCH ×2 (11:06→20:09)
[2022-05-06] MEDS: oxyCODONE/ACETAMINOPHEN 5mg/325mg TAB PO PRN (12:26)
[2022-05-06] MEDS: ondansetron HCL 6 MG in DEXTROSE 5% 50 ML IV PRN (13:55)
[2022-05-06] MEDS: ENOXAPARIN INJ 40 MG/0.4 ML SYR SQ SCH (14:00)
--- NOTE | 2022-05-06 16:12 | Hospitalist Progress Note ---
Date of Service May 06, 2022 Assessment & Plan (1) Nausea & vomiting: Plan: Quite possibly related to narcotic usage. Reglan dosage uptitrated. Dronabinol added. [facility] consulted - EGD deferred (2) COVID-19: Plan: Recently diagnosed but unlikely that her current symptoms are due to COVID at this point. She is not short of breath and has no pulmonary findings of viral pneumonia. No indication for Remdesivir or Dexamethasone. (3) Infection of left great toe due to methicillin resistant Staphylococcus aureus (MRSA): Plan: multiple admissions for the L great toe over the last 1-2 months. most recent procedure was on 04/14/[address] Montaño and eventually will need sutures out 1. Left foot great toe subungual abscess incision and drainage. 2. Removal of nail plate with matrixectomy, great toe. 3. Debridement of great toe ulcer 3.0 cm x 2.0 cm x 0.3 cm including skin, dermis, and subcutaneous tissue. MRI foot on 04/10/22 did NOT show osteomyelitis of L first toe. Culture from L great toe grew MRSA on 03/11/22. Last 2 cultures including this admission's culture have been negative for bacterial pathogens. (4) Diastolic CHF: Plan: Currently stable. Medical management . She received parenteral diuretics earlier this admission (5) Diabetes mellitus type 2, uncontrolled: Plan: controlled with lantus-novolog. ADA diet. Sliding scale coverage. Hgba1c 8.7% in March 2022 (6) HTN (hypertension): Plan: cont metoprolol succinate 50mg qam (7) Globus pharyngeus: Plan: Resolved . Occurred in the setting of her COVID infection and recent severe nausea/emesis . (8) Anemia: Plan: 2nd to Fe Deficiency. States she has an allergy to parenteral iron. Will follow (9) Hyperlipidemia: Plan: Heart healthy diet. Serial labs (10) Hyponatremia: Plan: Mild. Resolved (11) DVT prophylaxis: Plan: lovenox daily (12) Chronic pain syndrome: Plan: Pain management consultation requested. She is reluctant to stop her intravenous Dilaudid. (13) History of right below knee amputation: Plan: Supportive care (14) History of cardiac cath: Plan: 09/22/19 - [facility]; LM - mild luminal irregularities. LAD - mid 20-30%, distal with myocardial bridge & 30% stenosis. L Cx - mild luminal irregularities. RCA - proximal <30% stenosis; mid/distal vessel mild plaques. PDA - mild luminal irregularities. Medical management Plan Eventual discharge to home. Admission and Anticipated Discharge Date Admission Date: April 27, 2022 Subjective The patient seems to be very content to stay in the hospital and receive intravenous Dilaudid. Pain management consultation requested. Reglan dosage uptitrated and dronabinol added. She has been here since April 27. She refuses steroid therapy. Review of Systems Review of Systems: Constitutional-no fever or chills ENT-no blurred vision, no double vision, no epistaxis, no sore throat Respiratory-no cough, no wheezing, no shortness of breath Cardiac-no palpitations, no chest pain, no syncope GI-no nausea, vomiting, diarrhea, melena, hematochezia -no urinary retention, no urinary incontinence, no dysuria, no hematuria Musculoskeletal-the patient states she has severe debilitating low back pain Skin-no bruising, no rashes, no pruritus Neuro-no isolated weakness, no paresthesia, no weakness Psych-no depression, no anxiety Physical Exam Physical Exam: General-alert and oriented x3, no fevers, no chills HEENT-head atraumatic and normocephalic, pupils equal and reactive to light, extraocular muscles intact Neck-no lymphadenopathy or thyromegaly, trachea midline Chest-clear to auscultation percussion. No rales wheezing or rhonchi Cardiac-regular rate and rhythm, normal S1 and S2, no murmurs Abdomen-normal bowel sounds, nontender, no hepatosplenomegaly Extremities-no cyanosis, clubbing, or edema Neuro-cranial nerves II through XII intact, motor and sensory function within normal limits, strength symmetrical , no focal deficits Psych-normal affect, normal mood Results & Data Results & Data ([facility]) Vital Signs (Past 12 Hours) Vital Signs Temp Pulse Resp BP Pulse Ox O2 Del Method 05/06/22 08:59 37.2 C 71 16 157/77 H 94 Room Air Laboratory Results 05/02/22 08:41 05/04/22 07:53 PG Care Time/CCT Total # of Minutes Spent Total Time Spent with Patient: Total time spent is greater than 50% in coordination of care (as documented) at patient's floor/unit and/or counseling patient: Coding Level of Care Code 69488 Subseq Hosp Care Lvl 3 Diagnoses Nausea & vomiting R11.2 Vomiting type: unspecified COVID-19 U07.1 Infection of left great toe due to methicillin resistant Staphylococcus aureus (MRSA) L08.9; B95.62 Diastolic CHF I50.30 Diabetes mellitus type 2, uncontrolled E11.65 HTN (hypertension) I10 Globus pharyngeus R09.89 Anemia D64.9 Hyperlipidemia E78.5 Hyperlipidemia type: unspecified Hyponatremia E87.1 DVT prophylaxis Z29.9 Chronic pain syndrome G89.4 History of right below knee amputation Z89.511 History of cardiac cath Z98.890 (1) Nausea & vomiting Vomiting type: unspecified Qualified Code(s): R11.2 - Nausea with vomiting, unspecified (2) Hyperlipidemia Hyperlipidemia type: unspecified Qualified Code(s): E78.5 - Hyperlipidemia, unspecified
[2022-05-06] MEDS: METOCLOPRAMIDE HCL 10 MG TABLET PO SCH (17:48)
[2022-05-06] MEDS: rOPINIRole HCL 2 MG TABLET PO SCH (20:10)
[2022-05-06] MEDS: MELATONIN 3 MG TAB PO PRN (20:10)
[2022-05-06] MEDS: SERTRALINE HCL 50 MG TABLET PO SCH (20:10)
[2022-05-06] MEDS: LORazepam 1 MG TAB PO PRN (20:10)
[2022-05-06] MEDS: LANTUS PER UNIT CHARGE SQ SCH (20:32)
[2022-05-07] MEDS: HYDROmorphone INJ 1 MG/ML SYRINGE IV PRN ×5 (01:58→20:29)
[2022-05-07] MEDS: INSULIN ASPART PER UNIT SC SCH ×4 (08:50→21:47)
[2022-05-07] MEDS: ALUMINUM/MAGNESIUM/SIMETH (MAALOX MAX) 30 ML UDC PO SCH ×3 (08:52→16:26)
[2022-05-07] MEDS: DICLOFENAC SOD 1% GEL 100 GM TUBE EXT SCH ×4 (08:53→20:28)
[2022-05-07] MEDS: METOCLOPRAMIDE HCL 10 MG TABLET PO SCH ×3 (08:55→16:27)
[2022-05-07] MEDS: PREGABALIN 100 MG CAP PO SCH ×3 (08:55→20:31)
[2022-05-07] MEDS: hydrOXYzine HCl 25 MG TAB PO SCH (08:55)
[2022-05-07] MEDS: ASPIRIN 81 MG ECTAB PO SCH (08:55)
[2022-05-07] MEDS: oxyCODONE HCL IR 5 MG TAB (IMMEDIATE RELEASE) PO SCH ×2 (08:55→20:30)
[2022-05-07] MEDS: THIAMINE HCL 100 MG TAB PO SCH (08:56)
[2022-05-07] MEDS: PANTOprazole 40 MG TAB PO SCH ×2 (08:56→20:31)
[2022-05-07] MEDS: METOPROLOL SUCC 50MG EXT REL TAB PO SCH (08:56)
[2022-05-07] MEDS: MULTIVITAMIN TAB PO SCH (08:56)
[2022-05-07] MEDS: CLOPIDOGREL BISULFATE 75 MG TAB PO SCH (08:56)
--- NOTE | 2022-05-07 12:28 | Hospitalist Progress Note ---
Date of Service May 07, 2022 Assessment & Plan (1) Nausea & vomiting: Plan: Quite possibly related to narcotic usage. Reglan dosage has been uptitrated. Dronabinol has been added and seems to be helping. [facility] [place] [facility] consulted - EGD deferred. Pain management consultation pending (2) COVID-19: Plan: Recently diagnosed but unlikely that her current symptoms are due to COVID at this point. She is not short of breath and has no pulmonary findings of viral pneumonia. No indication for Remdesivir or Dexamethasone. (3) Infection of left great toe due to methicillin resistant Staphylococcus aureus (MRSA): Plan: multiple admissions for the L great toe over the last 1-2 months. most recent procedure was on 04/14/[address] Montaño and eventually will need sutures out 1. Left foot great toe subungual abscess incision and drainage. 2. Removal of nail plate with matrixectomy, great toe. 3. Debridement of great toe ulcer 3.0 cm x 2.0 cm x 0.3 cm including skin, dermis, and subcutaneous tissue. MRI foot on 04/10/22 did NOT show osteomyelitis of L first toe. Culture from L great toe grew MRSA on 03/11/22. Last 2 cultures including this admission's culture have been negative for bacterial pathogens. (4) Diastolic CHF: Plan: Currently stable. Medical management . She received parenteral diuretics earlier this admission (5) Diabetes mellitus type 2, uncontrolled: Plan: controlled with lantus-novolog. ADA diet. Sliding scale coverage. Hgba1c 8.7% in March 2022 (6) HTN (hypertension): Plan: cont metoprolol succinate 50mg qam (7) Globus pharyngeus: Plan: Resolved . Occurred in the setting of her COVID infection and recent severe nausea/emesis . (8) Anemia: Plan: 2nd to Fe Deficiency. States she has an allergy to parenteral iron. Will follow (9) Hyperlipidemia: Plan: Heart healthy diet. Serial labs (10) Hyponatremia: Plan: Mild. Resolved (11) DVT prophylaxis: Plan: lovenox daily (12) Chronic pain syndrome: Plan: Pain management consultation pending . She is reluctant to stop her intravenous Dilaudid. (13) History of right below knee amputation: Plan: Supportive care (14) History of cardiac cath: Plan: 09/22/19 - [facility]; LM - mild luminal irregularities. LAD - mid 20-30%, distal with myocardial bridge & 30% stenosis. L Cx - mild luminal irregularities. RCA - proximal <30% stenosis; mid/distal vessel mild plaques. PDA - mild luminal irregularities. Medical management Plan Eventual discharge to home. Admission and Anticipated Discharge Date Admission Date: April 27, 2022 Subjective Alert. She believes her nausea has improved with high-dose Reglan and the addition of dronabinol. Pain management consultation is pending. She continues to use intravenous Dilaudid for pain control measures and is hesitant to switch to oral dosing. Review of Systems 2 Review of Systems: Constitutional-no fever or chills ENT-no blurred vision, no double vision, no epistaxis, no sore throat Respiratory-no cough, no wheezing, no shortness of breath Cardiac-no palpitations, no chest pain, no syncope GI-no nausea, vomiting, diarrhea, melena, hematochezia -no urinary retention, no urinary incontinence, no dysuria, no hematuria Musculoskeletal-the patient states she has severe debilitating low back pain Skin-no bruising, no rashes, no pruritus Neuro-no isolated weakness, no paresthesia, no weakness Psych-no depression, no anxiety Physical Exam Physical Exam: General-alert and oriented x3, no fevers, no chills HEENT-head atraumatic and normocephalic, pupils equal and reactive to light, extraocular muscles intact Neck-no lymphadenopathy or thyromegaly, trachea midline Chest-clear to auscultation percussion. No rales wheezing or rhonchi Cardiac-regular rate and rhythm, normal S1 and S2, no murmurs Abdomen-normal bowel sounds, nontender, no hepatosplenomegaly Extremities-no cyanosis, clubbing, or edema Neuro-cranial nerves II through XII intact, motor and sensory function within normal limits, strength symmetrical , no focal deficits Psych-normal affect, normal mood Results & Data Results & Data ([facility]) Vital Signs (Past 12 Hours) Vital Signs Temp Pulse Resp BP Pulse Ox O2 Del Method 05/07/22 08:35 Room Air 05/07/22 08:49 36.8 C 66 18 103/58 L 94 Room Air Laboratory Results 05/02/22 08:41 05/04/22 07:53 PG Care Time/CCT Total # of Minutes Spent Total Time Spent with Patient: Total time spent is greater than 50% in coordination of care (as documented) at patient's floor/unit and/or counseling patient: Coding Level of Care Code 15173 Subseq Hosp Care Lvl 3 Diagnoses Nausea & vomiting R11.2 Vomiting type: unspecified COVID-19 U07.1 Infection of left great toe due to methicillin resistant Staphylococcus aureus (MRSA) L08.9; B95.62 Diastolic CHF I50.30 Diabetes mellitus type 2, uncontrolled E11.65 HTN (hypertension) I10 Globus pharyngeus R09.89 Anemia D64.9 Hyperlipidemia E78.5 Hyperlipidemia type: unspecified Hyponatremia E87.1 DVT prophylaxis Z29.9 Chronic pain syndrome G89.4 History of right below knee amputation Z89.511 History of cardiac cath Z98.890 (1) Nausea & vomiting Vomiting type: unspecified Qualified Code(s): R11.2 - Nausea with vomiting, unspecified (2) Hyperlipidemia Hyperlipidemia type: unspecified Qualified Code(s): E78.5 - Hyperlipidemia, unspecified
[2022-05-07] MEDS: ENOXAPARIN INJ 40 MG/0.4 ML SYR SQ SCH (12:56)
[2022-05-07] MEDS: rOPINIRole HCL 2 MG TABLET PO SCH (20:31)
[2022-05-07] MEDS: LORazepam 1 MG TAB PO PRN (20:31)
[2022-05-07] MEDS: SERTRALINE HCL 50 MG TABLET PO SCH (20:31)
[2022-05-07] MEDS: ZOLPIDEM TARTRATE 10 MG TAB PO PRN (20:31)
[2022-05-07] MEDS: LANTUS PER UNIT CHARGE SQ SCH (21:47)
[2022-05-07] MEDS ORDERED: guaiFENesin 600 MG TABCR PO PRN (22:21)
[2022-05-07] MEDS: ondansetron HCL 6 MG in DEXTROSE 5% 50 ML IV PRN (22:41)
[2022-05-08] MEDS: HYDROmorphone INJ 1 MG/ML SYRINGE IV PRN ×5 (00:28→22:59)
[2022-05-08] MEDS: CLOPIDOGREL BISULFATE 75 MG TAB PO SCH (08:33)
[2022-05-08] MEDS: PANTOprazole 40 MG TAB PO SCH ×2 (08:33→22:37)
[2022-05-08] MEDS: THIAMINE HCL 100 MG TAB PO SCH (08:33)
[2022-05-08] MEDS: ASPIRIN 81 MG ECTAB PO SCH (08:33)
[2022-05-08] MEDS: ERGOCALCIFEROL 50,000 UNITS 1250 MCG CAP PO SCH (08:34)
[2022-05-08] MEDS: MULTIVITAMIN TAB PO SCH (08:34)
[2022-05-08] MEDS: METOPROLOL SUCC 50MG EXT REL TAB PO SCH (08:34)
[2022-05-08] MEDS: DICLOFENAC SOD 1% GEL 100 GM TUBE EXT SCH ×4 (08:35→22:35)
[2022-05-08] MEDS: METOCLOPRAMIDE HCL 10 MG TABLET PO SCH ×3 (08:35→15:18)
[2022-05-08] MEDS: INSULIN ASPART PER UNIT SC SCH ×4 (08:40→22:41)
[2022-05-08] MEDS: ALUMINUM/MAGNESIUM/SIMETH (MAALOX MAX) 30 ML UDC PO SCH ×3 (08:52→15:17)
[2022-05-08] MEDS: hydrOXYzine HCl 25 MG TAB PO SCH (08:53)
[2022-05-08] MEDS: PREGABALIN 100 MG CAP PO SCH (08:53)
[2022-05-08] MEDS: oxyCODONE HCL IR 5 MG TAB (IMMEDIATE RELEASE) PO SCH ×2 (08:53→22:28)
[2022-05-08] MEDS ORDERED: HYDROmorphone INJ 1 MG/ML SYRINGE IV PRN (09:21)
[2022-05-08] MEDS ORDERED: methylPREDNISolone 4 MG TAB, 6 DAY TAPER PO SCH (09:30)
--- NOTE | 2022-05-08 09:49 | Pain Management Consultation ---
Date of Consultation May 08, 2022 Assessment & Plan (1) Costochondritis: (2) Chronic pain syndrome: (3) Acute adjustment disorder with mixed anxiety and depressed mood: (4) Nausea & vomiting: Vomiting type: unspecified Qualified Code(s): R11.2 - Nausea with vomiting, unspecified (5) COVID-19: (6) Opioid dependence: (7) Peripheral neuropathy: Plan 1. Patient's primary complaint appears to be bilateral lower thoracic chest wall pain consistent with costochondritis likely as a byproduct of her cough associated with COVID-19 infection. Treatment was discussed. Would not typically recommend utilization of opiate therapy for this pain complaint. Will initiate Medrol Dosepak after discussing side effects risk benefits with the patient and she was agreeable. 2. We discussed her IV hydromorphone utilization at length. Will currently transition to every 8 hours. Would recommend discontinuation of IV opiate therapy in the next 24 hours as I see little need for utilization of IV opiate therapy at this time. 3. Consider discontinuation of Oxy IR with continuation of as needed Percocet only 4. Will titrate pregabalin to 150 mg 3 times daily-orders placed Thank you for allowing us to participate in the care of this patient, pain service will sign off on patient at this time. Please contact us for reevaluation as needed. History of Present Illness Reason for Consultation: Chronic pain and ongoing use of IV hydromorphone Requesting Physician: David Wolfe MD Attending Physician: Ricardo Hernadez History of Present Illness Mrs. Witt is a 56-year-old white female who is well-known to the [facility] pain service due to multiple prior admissions for similar complaints. Patient was admitted on 04/27/2022 with complaints of intractable nausea and vomiting as well as some pain complaints in her left toe. She is status post a left toe debridement surgical procedure performed at the time of her last admission on 04/19/2022 due to history of osteomyelitis with improvement in the osteomyelitis. There is no residual osteomyelitis per MRI in late March-04/10/2022. She has been diagnosed with COVID-19 infection with persist ing difficulties with cough upon this admission. It is felt that her nausea and vomiting was likely GI related to her COVID-19 infection upon her initial evaluation. Patient has continued with nausea upon this admission. There has been no further diagnostic evaluation of the left toe due to improved healing and minimal complaints of pain. Her current pain complaint is lower thoracic pain bilaterally traveling along the posterior lateral and anterior chest wall aggravated with deep breathing, coughing and sneezing activities. She believes is related to her excessive coughing due to COVID-19 infection. She reports this pain has been present over the past 1-2 weeks only. She further reports a burning characteristic pain in the lower extremities which is chronic without recent change in severity. She continues utilize IV hydromorphone 6 mg in the past 24 hours along with Oxy IR and Percocet. Patient finds hydromorphone to be extremely effective at diminishing her pain but oxycodone to be only beneficial at "taking the edge off". Patient reports that she understands that she cannot rely on IV hydromorphone at home and has not reportedly had history transitioning from IV to oral opiate therapy upon her prior admissions and discharge. She denies any true radicular pattern to her pain. She rates her pain a 7-8/10 in the chest wall. She describes her burning posterior leg-n ondermatomal characteristic pain as a 5-7/10. She denies any significant left great toe pain at this time. Patient does have prior history of right BKA amputation. She denies any stump related pain. Patient indicates that she is moving her bowels and denies abdominal pain or constipation. Patient has no further constitutional complaints. Plan of care discussed with Dr. Deena Sandoval. Allergies Allergy/AdvReac Type Severity Reaction Status Date / Time morphine Allergy Severe blisters Verified 04/06/22 21:38 in mouth Sulfa (Sulfonamide Allergy Severe rash/swelli Verified 04/06/22 21:38 Antibiotics) ng iron [From Venofer] Allergy Intermediate Hypertensio Verified 04/06/22 21:38 n vancomycin Allergy Intermediate YULIYA Verified 04/06/22 21:38 SYNDROME---CAN TAKE IF VERY SLOW DRIP. amoxicillin [From Augmentin] Allergy Mild itching/power Verified 04/06/22 21:38 h clavulanic acid Allergy Mild itching/power Verified 04/06/22 21:38 [From Augmentin] h dermabond AdvReac excoriates Uncoded 04/06/22 21:40 skin Home Medications Medication Instructions Recorded Confirmed Type ropinirole 2 mg tablet 4 mg PO HS 10/19/20 04/06/22 History metoprolol succinate 50 mg 50 mg PO QAM 03/05/21 04/06/22 History tablet,extended release 24 hr (Toprol XL) lorazepam 1 mg tablet (Ativan) 1 mg PO TID PRN Anxiety 11/04/21 04/06/22 History cyclobenzaprine 10 mg tablet 10 mg PO BID PRN Muscle Spasm 11/24/21 04/06/22 History metoclopramide HCl 5 mg tablet 5 mg PO AC #90 tabs 12/26/21 04/06/22 Rx oxycodone-acetaminophen 5 mg-325 2 tab PO Q4H PRN moderate to 12/26/21 04/06/22 Rx mg tablet (Percocet) severe breakthrough pain #30 tabs insulin glargine 100 unit/mL (3 20 unit subcut HS 03/08/22 04/06/22 History mL) subcutaneous pen (Lantus Solostar U-100 Insulin) insulin lispro 100 unit/mL 5 unit subcut TIDM 03/08/22 04/06/22 History subcutaneous pen ondansetron 8 mg disintegrating 8 mg translingual TID PRN Nausea 03/08/22 04/06/22 History tablet zolpidem 10 mg tablet 10 mg PO HS PRN Sleep 03/08/22 04/06/22 History clopidogrel 75 mg tablet 75 mg PO QAM #30 tabs 03/30/22 04/06/22 Rx pregabalin 100 mg capsule (Lyrica) 100 mg PO TID 30 days #90 caps 03/30/22 04/06/22 Rx aspirin 81 mg tablet,delayed 81 mg PO DAILY #30 tabs 04/20/22 04/07/22 Rx release (Melissa Low Dose Aspirin) cephalexin 500 mg capsule 500 mg PO QID 8 days #32 caps 04/20/22 Rx cyanocobalamin (vitamin B-12) 1,000 mcg PO DAILY #30 caps 04/20/22 Rx 1,000 mcg capsule doxycycline hyclate 100 mg capsule 100 mg PO BID #16 caps 04/20/22 Rx ergocalciferol (vitamin D2) 1,250 50,000 unit PO Mo@0900 #7 caps 04/20/22 Rx mcg (50,000 unit) capsule hydroxyzine HCl 25 mg tablet 25 mg PO QAM #90 tabs 04/20/22 Rx multivitamin with folic acid 400 1 tab PO QAM #30 tabs 04/20/22 Rx mcg tablet (Daily-Werner (with folic acid)) oxycodone 15 mg tablet 15 mg PO BID #60 tabs 04/20/22 Rx sertraline 50 mg tablet 25 mg PO HS #27 tabs 04/20/22 Rx thiamine HCl (vitamin B1) 100 mg 200 mg PO DAILY #60 tabs 04/20/22 Rx tablet cephalexin 500 mg capsule 500 mg PO QID #28 caps 05/03/22 Rx doxycycline hyclate 100 mg capsule 100 mg PO BID@0530,2100 #20 caps 05/03/22 Rx Patient History Medical History (Updated 05/08/22 @ 10:20 by David Sandhu PA-C) Acidosis, lactic Acute dehydration 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 No issues per anesthesia postop progress note. Anemia Cellulitis Chronic back pain Chronic pain syndrome Costochondritis Depression Diabetic peripheral neuropathy DM2 (diabetes mellitus, type 2) IDDM, A1c 07/2021-11% Gastritis Gastroenteritis GIB (gastrointestinal bleeding) History of amputation of great toe Hyperlipidemia Insulin dependent diabetes mellitus Iron deficiency anemia Nonobstructive atherosclerosis of coronary artery Numbness of lower extremity Opiate abuse, continuous Opiate dependence Peripheral neuropathy Right second toe ulcer Seizures Sepsis Surgical History History of cardiac cath done at [facility]; 09/22/19; LM - mild luminal irregularities. LAD - mid 20-30%, distal with myocardial bridge & 30% stenosis. L Cx - mild luminal irregularities. RCA - proximal <30% stenosis; mid/distal vessel mild plaques. PDA - mild luminal irregularities. History of esophagogastroduodenoscopy (EGD) History of right below knee amputation (12/22/21) Right Below Knee Amputation(Right) - Davon Good MD, FACS Family History Mother , age 63 Myocardial infarction Father , age 68 or 69 Myocardial infarction Brother S/P CABG (coronary artery bypass graft) Sister Myocardial infarction x 3; she is 57yo Social History Smoking Status: Current every day smoker Tobacco Type: Cigarettes packs per day: 0.5; Years Smoked: 20; Cigarettes Per Day: 20; Second Hand Exposure: No; Hx Alcohol Use: No Hx Substance Use: Yes Prescribed Medications: Marijuana Last Used Substance: Days (ago) Last Used Substance Other:: 2 days ago Substance Use Type Other:: medical marijuana Preferred Language: Welsh Communication Ability: Effective Visual Impairment: No Limitations Hearing Ability: Normal I O Psychologist Required: No Beliefs That Will Affect Care: None marital status: Current Living Situation: Spouse current occupational status: unemployed 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 other: raising a grandchild as well; lives in [place] Feels Safe at Home: Yes Safety Concerns: Feels Safe At This Time during the past year weight has: remained stable Assistive Devices: Walker and Wheelchair Physical Exam Physical Exam: General: Patient lying quietly in exam room in no acute distress. Speech and thought process appropriate. Mood and affect appropriate. Cognition intact. Head: Normocephalic and atraumatic. ENT: No evidence of nasal or oral mucosal lesions. Mucous membranes are moist. Poor dentition. Eyes: Pupils equal round reactive to light. Neck: Supple without adenopathy and full range of motion. Chest: Nontender to palpation of the costosternal junction. Patient is tender along the posterior lateral chest wall to direct palpation in the intercostal space at approximate level of T9 and T10 region. No evidence of skin rash or skin breakdown. Patient is tender with AP and lateral compression of the chest wall. Abdomen: Soft and nondistended. No organomegaly. Bowel sounds active. Back/spine: Patient is nontender over the midline of the thoracolumbar spine. No paravertebral or focal facet joint tenderness was appreciated. Minimally tender in the lumbosacral region. Lower extremities: Bandage in place in the left lower extremity-foot which was not removed for visual inspection. SLR negative. Sensation intact. Right BKA appreciated. Nontender over the stump region to palpation. No evidence of allodynia or hyperpathia of the lower extremities bilaterally. Neurologic: Cranial nerves grossly intact. Ambulatory function not witnessed.
[2022-05-08] MEDS: ENOXAPARIN INJ 40 MG/0.4 ML SYR SQ SCH (12:52)
[2022-05-08] MEDS: methylPREDNISolone 4 MG TAB PO SCH ×2 (14:33→17:43)
[2022-05-08] MEDS: PREGABALIN 150 MG CAP PO SCH ×2 (14:33→22:29)
[2022-05-08] MEDS ORDERED: methylPREDNISolone 4 MG TAB PO SCH (21:00)
--- NOTE | 2022-05-08 21:33 | Hospitalist Progress Note ---
Date of Service May 08, 2022 Assessment & Plan (1) Nausea & vomiting: Plan: Quite possibly related to narcotic usage. Reglan dosage has been uptitrated. Dronabinol has been added and seems to be helping. [facility] consulted - EGD deferred. Pain management consultation: recommend cutting back opiates. will try again in AM. (2) COVID-19: Plan: Recently diagnosed but unlikely that her current symptoms are due to COVID at this point. She is not short of breath and has no pulmonary findings of viral pneumonia. No indication for Remdesivir or Dexamethasone. (3) Infection of left great toe due to methicillin resistant Staphylococcus aureus (MRSA): Plan: multiple admissions for the L great toe over the last 1-2 months. most recent procedure was on 04/14/[address] Montaño and eventually will need sutures out 1. Left foot great toe subungual abscess incision and drainage. 2. Removal of nail plate with matrixectomy, great toe. 3. Debridement of great toe ulcer 3.0 cm x 2.0 cm x 0.3 cm including skin, dermis, and subcutaneous tissue. MRI foot on 04/10/22 did NOT show osteomyelitis of L first toe. Culture from L great toe grew MRSA on 03/11/22. Last 2 cultures including this admission's culture have been negative for bacterial pathogens. (4) Diastolic CHF: Plan: Currently stable. Medical management . She received parenteral diuretics earlier this admission (5) Diabetes mellitus type 2, uncontrolled: Plan: controlled with lantus-novolog. ADA diet. Sliding scale coverage. Hgba1c 8.7% in March 2022 (6) HTN (hypertension): Plan: cont metoprolol succinate 50mg qam (7) Globus pharyngeus: Plan: Resolved . Occurred in the setting of her COVID infection and recent severe nausea/emesis . (8) Anemia: Plan: 2nd to Fe Deficiency. States she has an allergy to parenteral iron. Will follow (9) Hyperlipidemia: Plan: Heart healthy diet. Serial labs (10) Hyponatremia: Plan: Mild. Resolved (11) DVT prophylaxis: Plan: lovenox daily (12) Chronic pain syndrome: Plan: Pain management consultation pending . She is reluctant to stop her intravenous Dilaudid. (13) History of right below knee amputation: Plan: Supportive care (14) History of cardiac cath: Plan: 09/22/19 - [facility]; LM - mild luminal irregularities. LAD - mid 20-30%, distal with myocardial bridge & 30% stenosis. L Cx - mild luminal irregularities. RCA - proximal <30% stenosis; mid/distal vessel mild plaques. PDA - mild luminal irregularities. Medical management Plan Eventual discharge to home. Admission and Anticipated Discharge Date Admission Date: April 27, 2022 Subjective Patient reports feeling sluggish. Review of Systems Review of Systems: All systems reviewed & are unremarkable except as noted in HPI & below Physical Exam Physical Exam: General-alert and oriented x3, no fevers, no chills HEENT-head atraumatic and normocephalic, pupils equal and reactive to light, extraocular muscles intact Neck-no lymphadenopathy or thyromegaly, trachea midline Chest-clear to auscultation percussion. No rales wheezing or rhonchi Cardiac-regular rate and rhythm, normal S1 and S2, no murmurs Abdomen-normal bowel sounds, nontender, no hepatosplenomegaly Extremities-no cyanosis, clubbing, or edema Neuro-cranial nerves II through XII intact, motor and sensory function within normal limits, strength symmetrical , no focal deficits Psych-normal affect, normal mood Results & Data Results & Data ([facility]) Vital Signs (Past 12 Hours) Vital Signs Temp Pulse Resp BP Pulse Ox O2 Del Method 05/08/22 20:23 36.8 C 71 14 118/60 93 Room Air 05/08/22 14:59 36.7 C 70 16 136/75 94 Room Air PG Care Time/CCT Total # of Minutes Spent Total Time Spent with Patient: Total time spent is greater than 50% in coordination of care (as documented) at patient's floor/unit and/or counseling patient: Coding Level of Care Code 10684 Subseq Hosp Care Lvl 2 Diagnoses Nausea & vomiting R11.2 Vomiting type: unspecified COVID-19 U07.1 Infection of left great toe due to methicillin resistant Staphylococcus aureus (MRSA) L08.9; B95.62 Diastolic CHF I50.30 Diabetes mellitus type 2, uncontrolled E11.65 HTN (hypertension) I10 Globus pharyngeus R09.89 Anemia D64.9 Hyperlipidemia E78.5 Hyperlipidemia type: unspecified Hyponatremia E87.1 DVT prophylaxis Z29.9 Chronic pain syndrome G89.4 History of right below knee amputation Z89.511 History of cardiac cath Z98.890 Time Spent (min) 25 (1) Hyperlipidemia Hyperlipidemia type: unspecified Qualified Code(s): E78.5 - Hyperlipidemia, u nspecified (2) Nausea & vomiting Vomiting type: unspecified Qualified Code(s): R11.2 - Nausea with vomiting, unspecified
[2022-05-08] MEDS: MELATONIN 3 MG TAB PO PRN (22:29)
[2022-05-08] MEDS: SERTRALINE HCL 50 MG TABLET PO SCH (22:30)
[2022-05-08] MEDS: rOPINIRole HCL 2 MG TABLET PO SCH (22:36)
[2022-05-08] MEDS: LANTUS PER UNIT CHARGE SQ SCH (23:15)
[2022-05-09] MEDS: LORazepam 1 MG TAB PO PRN (00:45)
[2022-05-09] MEDS: ondansetron HCL 6 MG in DEXTROSE 5% 50 ML IV PRN (03:04)
[2022-05-09] MEDS: HYDROmorphone INJ 1 MG/ML SYRINGE IV PRN ×2 (03:05→07:19)
[2022-05-09] MEDS: ASPIRIN 81 MG ECTAB PO SCH (07:54)
[2022-05-09] MEDS: METOCLOPRAMIDE HCL 10 MG TABLET PO SCH ×2 (07:54→11:19)
[2022-05-09] MEDS: ALUMINUM/MAGNESIUM/SIMETH (MAALOX MAX) 30 ML UDC PO SCH ×2 (07:54→11:18)
[2022-05-09] MEDS: CLOPIDOGREL BISULFATE 75 MG TAB PO SCH (07:55)
[2022-05-09] MEDS: hydrOXYzine HCl 25 MG TAB PO SCH (07:55)
[2022-05-09] MEDS: methylPREDNISolone 4 MG TAB PO SCH ×2 (07:55→12:52)
[2022-05-09] MEDS: PANTOprazole 40 MG TAB PO SCH (07:55)
[2022-05-09] MEDS: oxyCODONE HCL IR 5 MG TAB (IMMEDIATE RELEASE) PO SCH (07:56)
[2022-05-09] MEDS: METOPROLOL SUCC 50MG EXT REL TAB PO SCH (07:56)
[2022-05-09] MEDS: MULTIVITAMIN TAB PO SCH (07:57)
[2022-05-09] MEDS: THIAMINE HCL 100 MG TAB PO SCH (07:57)
[2022-05-09] MEDS: PREGABALIN 150 MG CAP PO SCH (07:57)
[2022-05-09] MEDS: DICLOFENAC SOD 1% GEL 100 GM TUBE EXT SCH ×2 (07:57→11:19)
[2022-05-09] MEDS: INSULIN ASPART PER UNIT SC SCH ×2 (08:21→12:44)
[2022-05-09] MEDS: oxyCODONE/ACETAMINOPHEN 5mg/325mg TAB PO PRN (11:17)
--- NOTE | 2022-05-09 12:17 | Discharge Summary ---
Date of Service May 09, 2022 Admission HPI Per Admitting Provider 56-year-old female discharged about a week ago after foot infection, notes that at home her foot pain was still fairly severe but seems to been improving. She was tolerating doxycycline well. About 3 days ago started with intractable nausea and vomiting. She was not able to keep down food or drink, not able to keep down her medicines. Tried to manage at home for a few days, and then today with no and insight with her GI symptoms, she came to the hospital for further evaluation. She also notes her left toe throbs "it has a heartbeat" and the pain is fairly severe, although it is better than it was postop. Principal Diagnosis Intractable nausea and vomiting most likely from narcotics taken for chronic back pain Discharge Exam General-alert and oriented x3, no fevers, no chills. Appears chronically ill HEENT-head atraumatic and normocephalic, pupils equal and reactive to light, extraocular muscles intact Neck-no lymphadenopathy or thyromegaly, trachea midline Chest-clear to auscultation percussion. No rales wheezing or rhonchi Cardiac-regular rate and rhythm, normal S1 and S2, no murmurs Abdomen-normal bowel sounds, nontender, no hepatosplenomegaly Extremities-no cyanosis, clubbing, or edema Neuro-cranial nerves II through XII intact, motor and sensory function within normal limits, strength symmetrical , no focal deficits Psych-depressed affect Discharge Data Allergies Allergy/AdvReac Type Severity Reaction Status Date / Time morphine Allergy Severe blisters Verified 04/06/22 21:38 in mouth Sulfa (Sulfonamide Allergy Severe rash/swelli Verified 04/06/22 21:38 Antibiotics) ng iron [From Venofer] Allergy Intermediate Hypertensio Verified 04/06/22 21:38 n vancomycin Allergy Intermediate YULIYA Verified 04/06/22 21:38 SYNDROME---CAN TAKE IF VERY SLOW DRIP. amoxicillin [From Augmentin] Allergy Mild itching/power Verified 04/06/22 21:38 h clavulanic acid Allergy Mild itching/power Verified 04/06/22 21:38 [From Augmentin] h dermabond AdvReac excoriates Uncoded 04/06/22 21:40 skin Consultations 04/27/22 08:37 ED Decision to Admit Stat 04/30/22 18:05 Consult Gastroenterology Routine 05/06/22 11:37 Consult Pain Management Routine Hospital Course (1) Nausea & vomiting: Quite possibly related to narcotic usage. Reglan dosage has been uptitrated. Dronabinol has been added and seems to be helping. [facility] - EGD deferred. Pain management consultation appreciated. She is using Percocet and is on a Medrol Dosepak. Intravenous Dilaudid discontinued. (2) COVID-19: Recently diagnosed but unlikely that her current symptoms are due to COVID at this point. She is not short of breath and has no pulmonary findings of viral pneumonia. No indication for Remdesivir or Dexamethasone. (3) Infection of left great toe due to methicillin resistant Staphylococcus aureus (MRSA): multiple admissions for the L great toe over the last 1-2 months. most recent procedure was on 04/14/[address] Montaño and eventually will need sutures out 1. Left foot great toe subungual abscess incision and drainage. 2. Removal of nail plate with matrixectomy, great toe. 3. Debridement of great toe ulcer 3.0 cm x 2.0 cm x 0.3 cm including skin, dermis, and subcutaneous tissue. MRI foot on 04/10/22 did NOT show osteomyelitis of L first toe. Culture from L great toe grew MRSA on 03/11/22. Last 2 cultures including this admission's culture have been negative for bacterial pathogens. (4) Diastolic CHF: Currently stable. Medical management . She received parenteral diuretics earlier this admission (5) Diabetes mellitus type 2, uncontrolled: controlled with lantus-novolog. ADA diet. Sliding scale coverage. Hgba1c 8.7% in March 2022 (6) HTN (hypertension): cont metoprolol succinate 50mg qam (7) Globus pharyngeus: Resolved . Occurred in the setting of her COVID infection and recent severe nausea/emesis . 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 States she has an allergy to parenteral iron. Will follow (9) Hyperlipidemia: Heart healthy diet. Serial labs (10) Hyponatremia: Mild. Resolved (11) DVT prophylaxis: lovenox daily (12) Chronic pain syndrome: Discharge to home today, May 09 (13) History of right below knee amputation: Supportive care (14) History of cardiac cath: 09/22/19 - [facility]; LM - mild luminal irregularities. LAD - mid 20-30%, distal with myocardial bridge & 30% stenosis. L Cx - mild luminal irregularities. RCA - proximal <30% stenosis; mid/distal vessel mild plaques. PDA - mild luminal irregularities. Medical management Plan Discharge to home today, May 09 Total Time Total Time Spent Total Time Spent (In Minutes): 35 minutes Discharge Plan Discharge Items Patient Disposition: Home - Self-Care Reason For Visit: INTRACTABLE NAUSEA Discharge Diagnosis: gastroenteritis, from COVID infection acute on chronic pain from neuropathy and diabetic foot changes phantom pain from recent BKA Activity: Per Instructions section Activity Comment: rest and recover Non-emergency contact: Primary Care Provider Call non-emergency contact if: your symptoms worsen Follow-up/Referrals: Vince Vernon, DO [Primary Care Provider] - Diet: Carb Consistent or DM2 Addtl Attending Provider Instructions: You have been diagnosed with covid infection, it would be recommended that you quarantine yourself for 10 days from your first test or first symptoms, and if at the 10th day you have no symptoms the you can come off quarantine but use common sense precautions. Quarantine means attempting to stay away from people who have not had an active covid infection in the past, and if you have to be around others to wear a mask even if you are indoors, do not share a room to sleep in with others until you are out of quarantine. If you still have symptoms at the 10th day, continue to quarantine until you are symptom free for 48 hours Please continue follow-up with the orthopedic surgeon for postoperative care of your recent surgery continue another one week of antibiotics Pending Studies at Discharge: No Stand-Alone Forms: My [facility] [employer] Smoking Cessation Medications and DC Order Prescriptions: New doxycycline hyclate 100 mg Capsule 100 mg PO BID@0530,2100 Qty: 20 0RF cephalexin 500 mg Capsule 500 mg PO QID Qty: 28 0RF oxycodone-acetaminophen [Percocet] 10-325 mg tablet 1 tab PO Q4H PRN (Reason: pain) Qty: 30 0RF dronabinol 5 mg capsule 5 mg PO BID Qty: 30 0RF Rx Instructions: administer before lunch and evening meal/dinner Continued metoprolol succinate [Toprol XL] 50 mg tablet extended release 24 hr 50 mg PO QAM ropinirole 2 mg Tablet 4 mg PO HS cyclobenzaprine 10 mg tablet 10 mg PO BID PRN (Reason: Muscle Spasm) lorazepam [Ativan] 1 mg tablet 1 mg PO TID PRN (Reason: Anxiety) metoclopramide HCl 5 mg Tablet 5 mg PO AC Qty: 90 0RF zolpidem 10 mg tablet 10 mg PO HS PRN (Reason: Sleep) Rx Instructions: do not take within 3 hours of opiod pain med insulin lispro 100 unit/mL insulin pen 5 unit SUBCUT TIDM Rx Instructions: plus sliding scale insulin glargine [Lantus Solostar U-100 Insulin] 100 unit/mL (3 mL) insulin pen 20 unit SUBCUT HS ondansetron 8 mg tablet,disintegrating 8 mg translingual TID PRN (Reason: Nausea) clopidogrel 75 mg Tablet 75 mg PO QAM Qty: 30 0RF pregabalin [Lyrica] 100 mg Capsule 100 mg PO TID 30 Days Qty: 90 0RF hydroxyzine HCl 25 mg Tablet 25 mg PO QAM Qty: 90 0RF Rx Instructions: and take 2 tabs at bedtime sertraline 50 mg Tablet 25 mg PO HS Qty: 27 0RF Rx Instructions: x 6 days then increase to 50mg at bedtime cyanocobalamin (vitamin B-12) 1,000 mcg capsule 1,000 mcg PO DAILY Qty: 30 0RF Rx Instructions: Over the counter ergocalciferol (vitamin D2) 1,250 mcg (50,000 unit) Capsule 50,000 unit PO Mo@0900 Qty: 7 0RF multivitamin with folic acid [Daily-Werner (with folic acid)] 400 mcg Tablet 1 tab PO QAM Qty: 30 0RF Rx Instructions: OTC thiamine HCl (vitamin B1) 100 mg Tablet 200 mg PO DAILY Qty: 60 0RF Rx Instructions: OTC doxycycline hyclate 100 mg Capsule 100 mg PO BID Qty: 16 0RF aspirin [Melissa Low Dose Aspirin] 81 mg Tablet,Delayed Release (Dr/Ec) 81 mg PO DAILY Qty: 30 0RF Discontinued oxycodone-acetaminophen [Percocet] 5-325 mg Tablet 2 tab PO Q4H PRN (Reason: moderate to severe breakthrough pain) Qty: 30 0RF cephalexin 500 mg Capsule 500 mg PO QID 8 Days Qty: 32 0RF oxycodone 15 mg tablet 15 mg PO BID Qty: 60 0RF Discharge Orders: Discharge Order (Routine); Ordered 05/09/22 Ordered By: David Wolfe Admission Data Admit Date/Time: 04/27/22 08:45 Attending Provider: David Wolfe Admit Provider: Jon Whaley Primary Care Provider: Vince Vernon Other Providers: Jon Whaley ; Hernán Gonzalez ; Deena Sandoval Coding Level of Care Code D/C DAY MANAGEMENT >30 MINS Diagnoses Nausea & vomiting R11.2 Vomiting type: unspecified COVID-19 U07.1 Infection of left great toe due to methicillin resistant Staphylococcus aureus (MRSA) L08.9; B95.62 Diastolic CHF I50.30 Diabetes mellitus type 2, uncontrolled E11.65 HTN (hypertension) I10 Globus pharyngeus R09.89 Anemia D64.9 Hyperlipidemia E78.5 Hyperlipidemia type: unspecified Hyponatremia E87.1 DVT prophylaxis Z29.9 Chronic pain syndrome G89.4 History of right below knee amputation Z89.511 History of cardiac cath Z98.890
[2022-05-09] MEDS ORDERED: methylPREDNISolone 4 MG TAB PO SCH (21:00)
[2022-05-10] MEDS ORDERED: methylPREDNISolone 4 MG TAB PO SCH (07:00)
[2022-05-11] MEDS ORDERED: methylPREDNISolone 4 MG TAB PO SCH (07:00)
[2022-05-12] MEDS ORDERED: methylPREDNISolone 4 MG TAB PO SCH (07:00)
[2022-05-13] MEDS ORDERED: methylPREDNISolone 4 MG TAB PO SCH (07:00)
== END 2022-05-09 14:50 | disposition home or self-care (01) | DRG 177 ==
LOC: ED 06:30 → EDINP 08:45 → SUATTDRO 08:45 → 3W 13:39

== ENCOUNTER 2022-06-06 16:39 | Inpatient (IN) ==
[2022-06-06 17:56] LABS: Basophils # (auto) 0.09 K/uL (0-0.2); Basophils % (auto) 0.6 %; Eosinophils # (auto) 0.27 K/uL (0-0.50); Eosinophils % (auto) 1.7 %; Hematocrit (blood only) 45.4 % (34.1-44.9); Hemoglobin 14.6 g/dl (12.0-16.0); Immature Granulocytes # (auto) 0.06 K/uL (0.00-0.02); Immature Granulocytes % (auto) 0.4 %; Lymphocytes # (auto) 2.95 K/uL (1.2-3.4); Lymphocytes % (auto) 18.9 %; Mean Corpuscular Hemoglobin 25.7 pg (25.0-34.0); Mean Corpuscular Hgb Conc 32.2 g/dL (32.0-36.0); Mean Corpuscular Volume 79.9 fL (80.0-100.0); Monocytes # (auto) 0.83 K/uL (0.24-0.82); Monocytes % (auto) 5.3 %; Neutrophils % (auto) 73.1 %; Platelet Count 330 K/uL (130-400); RDW Coefficient of Variation 17.9 % (11.5-14.5); RDW Standard Deviation 50.9 fL (36.4-46.3); Red Blood Count 5.68 M/uL (3.93-5.22)
[2022-06-06 18:28] LABS: Anion Gap 10 (3-11); Blood Urea Nitrogen 10 mg/dl (6-23); Carbon Dioxide 27 mmol/L (21-32); Chloride 99 mmol/L (98-107); Est GFR (African American) 122.1 ml/min; Est GFR (Non-African American) 105.3 ml/min; Sodium 136 mmol/L (136-145)
[2022-06-06 18:29] LABS: Alanine Aminotransferase 11 U/L (7-52); Albumin Globulin Ratio 1.3 (0.9-2); Albumin Level 5.1 gm/dl (3.4-5.0); Alkaline Phosphatase 102 U/L (34-104); BUN Creatinine Ratio 19.2 (10-20); Bilirubin,Total 0.5 mg/dl (0.2-1.0); Calcium 10.5 mg/dl (8.5-10.1); Globulin 3.8 gm/dl (2.5-4.0); Glucose 115 mg/dl (70-99(Fasting)); Total Protein 8.9 gm/dl (6.0-8.3)
[2022-06-06 19:38] LABS: Appearance Urine Clear (Clear); Bilirubin Urine Negative (Negative); Blood Urine Negative (Negative); Color Urine Yellow; Glucose Urine UA Negative (Negative); Ketones Urine Negative (Negative); Leukocyte Esterase Urine Negative (Negative); Nitrite Urine Negative (Negative); Protein Urine Negative (Negative); Specific Gravity Urine 1.011 (1.000-1.030); Urobilinogen Urine Negative (Negative)
[2022-06-06] MEDS ORDERED: SODIUM CHLORIDE 0.9% 1000ML 1,000 ML IV ONE (19:55)
[2022-06-06] MEDS ORDERED: cefTRIAXone SODIUM 2,000 MG/70 ML BAG IV STA (19:55)
[2022-06-06] MEDS ORDERED: ONDANSETRON INJ 2 MG/ML 2 ML VIAL IV STA ×2 (19:55→23:20)
[2022-06-06] MEDS ORDERED: DOXYCYCLINE HYCLATE 100 MG CAP PO STA (19:55)
[2022-06-06] MEDS ORDERED: HYDROmorphone INJ 0.5 MG/0.5 ML SYR IV STA (19:57)
--- NOTE | 2022-06-06 20:00 | Emergency Department Note ---
Impression & Plan Cellulitis, Acute leg pain, Leukocytosis ED Provider Note NAME: EILEEN ESCOBAR AGE: 57 SEX: F : 1965 ARRIVES VIA: Walk-In INFORMANT: Patient ED PROVIDER(S): Jon Adan DO CHIEF COMPLAINT: foot pain HPI: Patient is a 57-year-old female who presents to the ER for left foot pain. This started about 3 days ago. She notes that the pain is just on her left first toe and tracks into the calf. She denies any new tingling or numbness. She saw her PCP today and was referred in. She denies any fevers above 100.4. No shaking chills. She does have some nausea and vomiting. No belly pain. No dysuria, urgency, or frequency. She notes that she has had this multiple times before in the past. Pain is a 7 out of 10. It is worse with walking. ROS: See above HPI for pertinent positives & negatives. A total of 10 systems re viewed and were otherwise negative. PAST MEDICAL HISTORY:See Below PAST SURGICAL HISTORY:See Below FAMILY HISTORY:See Below SOCIAL HISTORY:See Below HOME MEDICATIONS:See Below ALLERGIES:See Below VITALS:See Below PHYSICAL EXAMINATION: GENERAL: Sitting up in bed, alert, well appearing, well nourished, no distress, non-toxic EYE EXAM: normal conjunctiva. OROPHARYNX: no exudate, no erythema, lips, buccal mucosa, and tongue normal and mucous membranes are moist NECK: supple, no nuchal rigidity, no adenopathy, non-tender LUNGS: Clear to auscultation. Normal chest wall mechanics HEART: no murmurs, S1 normal and S2 normal ABDOMEN: abdomen soft, non-tender, normo-active bowel sounds, no masses, no rebound or guarding. BACK: Back is symmetrical on inspection and there is no deformity, no midline tenderness, no CVA tenderness. SKIN: no rashes and no bruising UPPER EXTREMITIES: upper extremities are grossly normal. LOWER EXTREMITIES: Above-knee amputation on right leg. Stump is clean, dry, and intact. Left leg with DP 2 out of 4. Abrasion/avulsion of skin the base of the left toe. No involvement of the musculature. No drainage or discharge. There is no lymphangitic streaking. NEURO EXAM: Normal sensorium, cranial nerves II-XII grossly intact, normal speech, no gross weakness of arms, no gross weakness of legs. MEDICAL DECISION MAKING: Patient is a 57-year-old female referred in by PCP. IV was established blood work was obtained. Labs show leukocytosis 15,000. No significant anemia. BMP with LFTs bilirubin was unremarkable. UA was clean. COVID was negative. She i s complaining of severe left toe pain. Duplex left lower extremity was negative. DP was 2 out of 4. Patient was given IV Rocephin and ordered oral doxycycline. She was given IV Dilaudid and Zofran as she had persistent vomiting. She notes this was from the pain in her foot. She was pretty hype rtensive with systolics in the 200s. She was updated bedside as she started to get lymphangitic streaking, was having vomiting, tachycardic with a white count did discuss with the hospitalist for further evaluation Triage Nursing notes reviewed. Limited review of prior medical records performed Vital Signs: reviewed and remarkable for HTN Differential diagnosis: Cellulitis, abscess, MRSA infection, DVT, necrotizing fasciitis, dermatitis, drug eruption, allergic reaction, as well as other pathologies. ER treatment provided: See below Diagnostics interpreted by me: ECG: none Cardiac Monitoring: An order was placed for continuous cardiac monitoring. The monitor shows a rate of 90 with sinus rhythm. Laboratory studies: As stated above and show below. Imaging studies: Duplex of the left lower extremity was negative Consultation(s): Discussed with Jayson Staton for further evaluation Procedures: none Critical Care: None Past Med/Surg History Medical History (Updated 06/06/22 @ 23:41 by Jon Adan DO) Acidosis, lactic Acute dehydration 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 No issues per anesthesia postop progress note. Anemia Cellulitis Chronic back pain Chronic pain syndrome Costochondritis COVID-19 Depression Diabetes mellitus type 2, uncontrolled Diabetic peripheral neuropathy Diastolic CHF DM2 (diabetes mellitus, type 2) IDDM, A1c 07/2021-11% Gastritis Gastroenteritis GIB (gastrointestinal bleeding) History of amputation of great toe HTN (hypertension) Hyperlipidemia Hyponatremia Infection of left great toe due to methicillin resistant Staphylococcus aureus (MRSA) Insomnia Insulin dependent diabetes mellitus Iron deficiency anemia Nonobstructive atherosclerosis of coronary artery Numbness of lower extremity Opiate abuse, continuous Opiate dependence Opioid dependence Osteomyelitis of great toe of left foot Peripheral neuropathy Right second toe ulcer Seizures Sepsis Surgical History (Updated 05/21/22 @ 00:08 by Background Hung) History of esophagogastroduodenoscopy (EGD) History of right below knee amputation (12/22/21) Right Below Knee Amputation(Right) - Davon Good MD, FACS Family History Mother , age 63 Myocardial infarction Father , age 68 or 69 Myocardial infarction Brother S/P CABG (coronary artery bypass graft) Sister Myocardial infarction x 3; she is 57yo Social History Smoking Status: Current some day smoker Tobacco Type: Cigarettes packs per day: 0.5; Years Smoked: 20; Cigarettes Per Day: 20; Second Hand Exposure: No; Hx Alcohol Use: No Hx Substance Use: Yes Prescribed Medications: Marijuana Last Used Substance: Days (ago) Last Used Substance Other:: 2 days ago Substance Use Type Other:: me dical marijuana Preferred Language: Persian Communication Ability: Effective Visual Impairment: No Limitations Hearing Ability: Normal Green Lumber Grader Required: No Beliefs That Will Affect Care: None marital status: Current Living Situation: Spouse current occupational status: unemployed 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 other: raising a grandchild as well; lives in [place] Feels Safe at Home: Yes during the past year weight has: remained stable Assistive Devices: Walker and Wheelchair Allergies Allergies Allergy/AdvReac Type Severity Reaction Status Date / Time morphine Allergy Severe blisters Verified 06/06/22 21:09 in mouth Sulfa (Sulfonamide Allergy Severe rash/swelli Verified 06/06/22 21:09 Antibiotics) ng iron [From Venofer] Allergy Intermediate Hypertensio Verified 06/06/22 21:09 n vancomycin Allergy Intermediate YULIYA Verified 06/06/22 21:09 SYNDROME---CAN TAKE IF VERY SLOW DRIP. amoxicillin [From Augmentin] Allergy Mild itching/power Verified 06/06/22 21:09 h clavulanic acid Allergy Mild itching/power Verified 06/06/22 21:09 [From Augmentin] h dermabond AdvReac excoriates Uncoded 06/06/22 21:09 skin Home Meds Home Medications Medication Instructions Recorded Confirmed ropinirole 2 mg tablet 4 mg PO HS 10/19/20 06/06/22 metoprolol succinate 50 mg 50 mg PO QAM 03/05/21 06/06/22 tablet,extended release 24 hr (Toprol XL) lorazepam 1 mg tablet (Ativan) 1 mg PO TID PRN Anxiety 11/04/21 06/06/22 cyclobenzaprine 10 mg tablet 10 mg PO BID PRN Muscle Spasm 11/24/21 06/06/22 insulin glargine 100 unit/mL (3 20 unit subcut HS 03/08/22 06/06/22 mL) subcutaneous pen (Lantus Solostar U-100 Insulin) insulin lispro 100 unit/mL 5 unit subcut TIDM 03/08/22 06/06/22 subcutaneous pen ondansetron 8 mg disintegrating 8 mg translingual TID PRN Nausea 03/08/22 06/06/22 tablet zolpidem 10 mg tablet 10 mg PO HS PRN Sleep 03/08/22 06/06/22 pregabalin 75 mg capsule 75 mg PO BID 06/06/22 06/06/22 Previous Rx's Medication Instructions Recorded clopidogrel 75 mg tablet 75 mg PO QAM #30 tabs 03/30/22 aspirin 81 mg tablet,delayed 81 mg PO DAILY #30 tabs 04/20/22 release (Melissa Low Dose Aspirin) hydroxyzine HCl 25 mg tablet 25 mg PO QAM #90 tabs 04/20/22 multivitamin with folic acid 400 1 tab PO QAM #30 tabs 04/20/22 mcg tablet (Daily-Werner (with folic acid)) sertraline 50 mg tablet 25 mg PO HS #27 tabs 04/20/22 oxycodone-acetaminophen 10 mg-325 1 tab PO Q4H PRN pain #30 tabs 05/09/22 mg tablet (Percocet) Results & Data (ED) Vital Signs Vital Signs - 24 hr 06/06/22 16:51 06/06/22 19:53 06/06/22 21:31 Temperature 36.8 C Temperature Source Temporal Artery Scan Pulse Rate 99 H Pulse Rate [Apical] 98 H 90 Respiratory Rate 18 18 18 Respiratory Effort / Characteristics Non-Labored Spontaneous Non-Labored Spontaneous Non-Labored Spontaneous Respiratory Depth Normal Normal Normal Respiratory Pattern Regular Blood Pressure 165/84 H Blood Pressure [Right Arm] 182/101 H 225/103 H Blood Pressure Mean 111 Blood Pressure Mean [Right Arm] 128 143 Pulse Oximetry 99 96 95 Oxygen Delivery Method Room Air Room Air Room Air Sepsis Recent Fever Within 48 Hours No Sepsis New/Unexplained Change in Mental Status No Sepsis Action Taken by Nursing No Action Required 06/06/22 22:12 06/06/22 22:30 06/06/22 20:00 Temperature Temperature Source Pulse Rate 92 H Pulse Rate [Apical] 86 93 H Respiratory Rate 18 18 17 Respiratory Effort / Characteristics Non-Labored Spontaneous Non-Labored Spontaneous Respiratory Depth Normal Normal Respiratory Pattern Blood Pressure 200/104 H Blood Pressure [Right Arm] 206/108 H 201/107 H Blood Pressure Mean 136 Blood Pressure Mean [Right Arm] 140 138 Pulse Oximetry 95 95 97 Oxygen Delivery Method Room Air Room Air Room Air Sepsis Recent Fever Within 48 Hours Sepsis New/Unexplained Change in Mental Status Sepsis Action Taken by Nursing 06/06/22 20:05 06/06/22 21:31 06/06/22 22:10 Temperature Temperature Source Pulse Rate 89 90 94 H Pulse Rate [Apical] Respiratory Rate 13 17 18 Respiratory Effort / Characteristics Respiratory Depth Respiratory Pattern Blood Pressure 178/84 H 225/103 H 240/110 H Blood Pressure [Right Arm] Blood Pressure Mean 115 143 153 Blood Pressure Mean [Right Arm] Pulse Oximetry 98 96 96 Oxygen Delivery Method Room Air Room Air Room Air Sepsis Recent Fever Within 48 Hours Sepsis New/Unexplained Change in Mental Status Sepsis Action Taken by Nursing 06/06/22 22:12 06/06/22 22:30 06/06/22 23:00 Temperature Temperature Source Pulse Rate 93 H 89 85 Pulse Rate [Apical] Respiratory Rate 14 16 18 Respiratory Effort / Characteristics Respiratory Depth Respiratory Pattern Blood Pressure 206/108 H 201/107 H 190/111 H Blood Pressure [Right Arm] Blood Pressure Mean 140 138 137 Blood Pressure Mean [Right Arm] Pulse Oximetry 96 96 97 Oxygen Delivery Method Room Air Room Air Room Air Sepsis Recent Fever Within 48 Hours Sepsis New/Unexplained Change in Mental Status Sepsis Action Taken by Nursing 06/06/22 23:26 Temperature Temperature Source Pulse Rate 93 H Pulse Rate [Apical] Respiratory Rate 19 Respiratory Effort / Characteristics Respiratory Depth Respiratory Pattern Blood Pressure 182/158 H Blood Pressure [Right Arm] Blood Pressure Mean 166 Blood Pressure Mean [Right Arm] Pulse Oximetry 100 Oxygen Delivery Method Room Air Sepsis Recent Fever Within 48 Hours Sepsis New/Unexplained Change in Mental Status Sepsis Action Taken by Nursing Laboratory Data Result diagrams: 06/06/22 17:29 06/06/22 20:54 Lab Results 06/06/22 06/06/22 06/06/22 Range/Units 17:29 17: 19:00 WBC 15.60 H (4.8-10.8) K/ul RBC 5.68 H (3.93-5.22) M/uL Hgb 14.6 (12.0-16.0) g/dl Hct 45.4 H (34.1-44.9) % MCV 79.9 L (80.0-100.0) fL MCH 25.7 (25.0-34.0) pg MCHC 32.2 (32.0-36.0) g/dL RDW Std Deviation 50.9 H (36.4-46.3) fL RDW Coeff of Maria [place] Carmen 17.9 H (11.5-14.5) % Plt Count 330 (130-400) K/uL MPV 10.0 (9.4-12.3) fL Immature Gran % (Auto) 0.4 % Neut % (Auto) 73.1 % Lymph % (Auto) 18.9 % Marin % (Auto) 5.3 % Eos % (Auto) 1.7 % Baso % (Auto) 0.6 % Neut # (Auto) 11.40 H (1.4-6.5) K/uL Lymph # (Auto) 2.95 (1.2-3.4) K/uL Marin # (Auto) 0.83 H (0.24-0.82) K/uL Eos # (Auto) 0.27 (0-0.50) K/uL Baso # (Auto) 0.09 (0-0.2) K/uL Immature Gran # (Auto) 0.06 H (0.00-0.02) K/uL Sodium 136 (136-145) mmol/L Potassium TNP Chloride 99 (98-107) mmol/L Carbon Dioxide 27 (21-32) mmol/L Anion Gap 10 (3-11) BUN 10 (6-23) mg/dl Creatinine 0.52 L (0.6-1.2) mg/dl Est Cr Clr Drug Dosing Not Reportable Est GFR ( Amer) 122.1 ml/min Est GFR (Non-Af Amer) 105.3 ml/min BUN/Creatinine Ratio 19.2 (10-20) Glucose 115 H (70-99(Fasting)) mg/dl Calcium 10.5 H (8.5-10.1) mg/dl Total Bilirubin 0.5 (0.2-1.0) mg/dl AST TNP ALT 11 (7-52) U/L Alkaline Phosphatase 102 (34-104) U/L Total Protein 8.9 H (6.0-8.3) gm/dl Albumin 5.1 H (3.4-5.0) gm/dl Globulin 3.8 (2.5-4.0) gm/dl Albumin/Globulin Ratio 1.3 (0.9-2) Urine Color Yellow Urine Appearance Clear (Clear) Urine pH 7.0 (4.5-7.5) Ur Specific [place] 1.011 (1.000-1.030) Urine Protein Negative (Negative) Urine Glucose (UA) Negative (Negative) Urine Ketones Negative (Negative) Urine Blood Negative (Negative) Urine Nitrite Negative (Negative) Urine Bilirubin Negative (Negative) Urine Urobilinogen Negative (Negative) Ur Leukocyte Esterase Negative (Negative) SARS-CoV-2, RNA, NAAT (NEGATIVE) 06/06/22 06/06/22 Range/Units 20:54 22:24 WBC (4.8-10.8) K/ul RBC (3.93-5.22) M/uL Hgb (12.0-16.0) g/dl Hct (34.1-44.9) % MCV (80.0-100.0) fL MCH (25.0-34.0) pg MCHC (32.0-36.0) g/dL RDW Std Deviation (36.4-46.3) fL RDW Coeff of Maria [place] Carmen (11.5-14.5) % Plt Count (130-400) K/uL MPV (9.4-12.3) fL Immature Gran % (Auto) % Neut % (Auto) % Lymph % (Auto) % Marin % (Auto) % Eos % (Auto) % Baso % (Auto) % Neut # (Auto) (1.4-6.5) K/uL Lymph # (Auto) (1.2-3.4) K/uL Marin # (Auto) (0.24-0.82) K/uL Eos # (Auto) (0-0.50) K/uL Baso # (Auto) (0-0.2) K/uL Immature Gran # (Auto) (0.00-0.02) K/uL Sodium (136-145) mmol/L Potassium 4.0 Chloride (98-107) mmol/L Carbon Dioxide (21-32) mmol/L Anion Gap (3-11) BUN (6-23) mg/dl Creatinine (0.6-1.2) mg/dl Est Cr Clr Drug Dosing Est GFR ( Amer) ml/min Est GFR (Non-Af Amer) ml/min BUN/Creatinine Ratio (10-20) Glucose (70-99(Fasting)) mg/dl Calcium (8.5-10.1) mg/dl Total Bilirubin (0.2-1.0) mg/dl AST 8 L ALT (7-52) U/L Alkaline Phosphatase (34-104) U/L Total Protein (6.0-8.3) gm/dl Albumin (3.4-5.0) gm/dl Globulin (2.5-4.0) gm/dl Albumin/Globulin Ratio (0.9-2) Urine Color Urine Appearance (Clear) Urine pH (4.5-7.5) Ur Specific [place] (1.000-1.030) Urine Protein (Negative) Urine Glucose (UA) (Negative) Urine Ketones (Negative) Urine Blood (Negative) Urine Nitrite (Negative) Urine Bilirubin (Negative) Urine Urobilinogen (Negative) Ur Leukocyte Esterase (Negative) SARS-CoV-2, RNA, NAAT NEGATIVE (NEGATIVE) Administered Medications Discontinued Medications Doxycycline Hyclate (Doxycycline Hyclate 100 Mg Cap) 100 mg PO NOW STA Stop: 06/06/22 19:56 Last Admin: 06/06/22 20:11 Dose: 100 mg Documented By: JOSE Hydromorphone HCl (Hydromorphone Inj 0.5 Mg/0.5 Ml Syr) 0.5 mg IV NOW STA Stop: 06/06/22 19:58 Last Admin: 10/25/22 20:10 Dose: 0.5 mg Documented By: JOSE Hydromorphone HCl (Hydromorphone Inj 1 Mg/Ml Syringe) 1 mg IV NOW STA Stop: 06/06/22 21:41 Last Admin: 06/06/22 22:10 Dose: 1 mg Documented By: JOSE Sodium Chloride (Nss 1000ml) 1,000 mls @ 999 mls/hr IV .Q1H1M ONE Stop: 06/06/22 20:55 Last Infusion: 06/06/22 21:16 Dose: 0 mls/hr Documented By: Admin: 06/06/22 20:13 Dose: 999 mls/hr Documented By: JOSE Ceftriaxone Sodium (Rocephin) 2,000 mg in 70 mls @ 140 mls/hr IV NOW STA Stop: 06/06/22 20:24 Last Infusion: 06/06/22 21:16 Dose: 0 mls/hr Documented By: Admin: 06/06/22 20:53 Dose: 140 mls/hr Documented By: JOSE Lorazepam (Lorazepam 1 Mg Tab) Confirm Administered Dose 1 mg .ROUTE .STK-MED ONE Stop: 06/06/22 23:05 Last Admin: 06/06/22 23:05 Dose: 1 mg Documented By: JOSE Ondansetron HCl (Ondansetron Inj 2 Mg/Ml 2 Ml Vial) 4 mg IV NOW STA Stop: 06/06/22 19:56 Last Admin: 06/06/22 20:10 Dose: 4 mg Documented By: JOSE Ondansetron HCl (Ondansetron Inj 2 Mg/Ml 2 Ml Vial) 4 mg IV NOW STA Stop: 06/06/22 23:21 Last Admin: 06/06/22 23:23 Dose: 4 mg Documented By: HANS Imaging Data Radiologist's Impression: Venous Doppler Study 06/06/22 19:56 LEFT LOWER EXTREMITY VENOUS DOPPLER HISTORY: Left lower extremity pain. COMPARISON STUDY: None. FINDINGS: There is normal compressibility, flow, and augmentation within the left lower extremity deep venous system. IMPRESSION: No DVT within the left lower extremity. ACT 112: Negative or not required by law. Electronically signed by: Ernst Murray M.D. 06/06/2022 8:51 PM Discharge Plan Visit Data Chief Complaint: Foot Injury/Pain Stated Complaint: LEFT FOOT INFECTION ED Provider: Jon Adan Discharge Problem: Cellulitis, Acute leg pain, Leukocytosis Forms Stand Alone Forms: My [facility] Prescriptions Prescriptions: No Action metoprolol succinate [Toprol XL] 50 mg tablet extended release 24 hr 50 mg PO QAM pregabalin 75 mg capsule 75 mg PO BID ropinirole 2 mg Tablet 4 mg PO HS cyclobenzaprine 10 mg tablet 10 mg PO BID PRN (Reason: Muscle Spasm) lorazepam [Ativan] 1 mg tablet 1 mg PO TID PRN (Reason: Anxiety) zolpidem 10 mg tablet 10 mg PO HS PRN (Reason: Sleep) Rx Instructions: do not take within 3 hours of opiod pain med insulin lispro 100 unit/mL insulin pen 5 unit SUBCUT TIDM Rx Instructions: plus sliding scale insulin glargine [Lantus Solostar U-100 Insulin] 100 unit/mL (3 mL) insulin pen 20 unit SUBCUT HS ondansetron 8 mg tablet,disintegrating 8 mg translingual TID PRN (Reason: Nausea) clopidogrel 75 mg Tablet 75 mg PO QAM Qty: 30 0RF hydroxyzine HCl 25 mg Tablet 25 mg PO QAM Qty: 90 0RF Rx Instructions: and take 2 tabs at bedtime sertraline 50 mg Tablet 25 mg PO HS Qty: 27 0RF Rx Instructions: x 6 days then increase to 50mg at bedtime multivitamin with folic acid [Daily-Werner (with folic acid)] 400 mcg Tablet 1 tab PO QAM Qty: 30 0RF Rx Instructions: OTC aspirin [Melissa Low Dose Aspirin] 81 mg Tablet,Delayed Release (Dr/Ec) 81 mg PO DAILY Qty: 30 0RF oxycodone-acetaminophen [Percocet] 10-325 mg tablet 1 tab PO Q4H PRN (Reason: pain) Qty: 30 0RF Referrals Referrals: Vinec Vernon DO [Primary Care Provider] -
--- NOTE | 2022-06-06 20:52 | Ultrasound Report ---
LEFT LOWER EXTREMITY VENOUS DOPPLER HISTORY: Left lower extremity pain. COMPARISON STUDY: None. FINDINGS: There is normal compressibility, flow, and augmentation within the left lower extremity dinah p venous system. IMPRESSION: No DVT within the left lower extremity. ACT 112: Negative or not required by law. Electronically signed by: Ernst Murray M.D. 06/06/2022 8:51 PM
[2022-06-06] MEDS ORDERED: HYDROmorphone INJ 1 MG/ML SYRINGE IV STA (21:40)
[2022-06-06] MEDS ORDERED: LORazepam 1 MG TAB PO STA (22:59)
[2022-06-06] MEDS ORDERED: LORazepam 1 MG TAB ONE (23:04)
--- NOTE | 2022-06-06 23:34 | History & Physical Report ---
Date of Service June 06, 2022 Assessment & Plan (1) Cellulitis of left foot: Plan: Cellulitis of left great toe/recent osteomyelitis/history of MRSA- Received ceftriaxone 2 g IV and doxycycline 100 mg p.o. from the ED. Admit on ceftriaxone 2 g IV and doxycycline 100 mg IV twice daily Consider ordering MRI of left foot in the morning to assess for possible osteomyelitis Acetaminophen 650 mg NPO every 6 hours. Mild pain or fever Oxycodone/acetaminophen 5/325, 1 p.o. every 4 hours as needed moderate pain Dilaudid 0.5 mg IV every 3 hours as needed severe pain (2) MRSA (methicillin resistant staph aureus) culture positive: (3) Diabetes mellitus type 2, uncontrolled: Plan: Continue Lantus insulin 20 units subcu at bedtime Hold standing orders of lispro 3 times daily Placed on Accu-Cheks before meals and at bedtime with NovoLog coverage per scale (4) PAD (peripheral artery disease): Plan: Continue aspirin and clopidogrel (5) Anxiety: Plan: Anxiety/depression continue hydroxyzine, lorazepam, sertraline and zolpidem (6) Depression: (7) Diabetic peripheral neuropathy: Plan: Continue pregabalin and ropinirole (8) Chronic pain syndrome: Plan: As above History of Present Illness Chief Complaint: The patient presents to the emergency department with a recurrence of left great toe pain and redness over the past 3 to 4 days. Primary Care Provider: Vince Vernon DO The patient is a 57-year-old female with a past medical history including chronic pain syndrome, anxiety and depression, insomnia, gastroparesis, vitamin D deficiency, esophagitis, right second toe ulcer, PAD, osteomyelitis of great right toe, MRSA positive, status post AKA right lower extremity, diabetic peripheral neuropathy, nonobstructive CAD and chronic back pain. The patient presents to the emergency department with a recurrence of left great toe pain and redness. Her most recent hospitalization from 04/27-05/09/2022 was for treatment of osteomyelitis of the left great toe with daptomycin IV. She has had 9 previous admissions this year for infections and amputation of right lower extremity, and recurrent infection of the left lower extremity. Allergies Allergy/AdvReac Type Severity Reaction Status Date / Time morphine Allergy Severe blisters Verified 06/06/22 21:09 in mouth Sulfa (Sulfonamide Allergy Severe rash/swelli Verified 06/06/22 21:09 Antibiotics) ng iron [From Venofer] Allergy Intermediate Hypertensio Verified 06/06/22 21:09 n vancomycin Allergy Intermediate YULIYA Verified 06/06/22 21:09 SYNDROME---CAN TAKE IF VERY SLOW DRIP. amoxicillin [From Augmentin] Allergy Mild itching/power Verified 06/06/22 21:09 h clavulanic acid Allergy Mild itching/power Verified 06/06/22 21:09 [From Augmentin] h dermabond AdvReac excoriates Uncoded 06/06/22 21:09 skin Home Medications Medication Instructions Recorded Confirmed Type ropinirole 2 mg tablet 4 mg PO HS 10/19/20 06/06/22 History metoprolol succinate 50 mg 50 mg PO QAM 03/05/21 06/06/22 History tablet,extended release 24 hr (Toprol XL) lorazepam 1 mg tablet (Ativan) 1 mg PO TID PRN Anxiety 11/04/21 06/06/22 History cyclobenzaprine 10 mg tablet 10 mg PO BID PRN Muscle Spasm 11/24/21 06/06/22 Hi story insulin glargine 100 unit/mL (3 20 unit subcut HS 03/08/22 06/06/22 History mL) subcutaneous pen (Lantus Solostar U-100 Insulin) insulin lispro 100 unit/mL 5 unit subcut TIDM 03/08/22 06/06/22 History subcutaneous pen ondansetron 8 mg disintegrating 8 mg translingual TID PRN Nausea 03/08/22 06/06/22 History tablet zolpidem 10 mg tablet 10 mg PO HS PRN Sleep 03/08/22 06/06/22 History clopidogrel 75 mg tablet 75 mg PO QAM #30 tabs 03/30/22 06/06/22 Rx aspirin 81 mg tablet,delayed 81 mg PO DAILY #30 tabs 04/20/22 06/06/22 Rx release (Melissa Low Dose Aspirin) hydroxyzine HCl 25 mg tablet 25 mg PO QAM #90 tabs 04/20/22 06/06/22 Rx multivitamin with folic acid 400 1 tab PO QAM #30 tabs 04/20/22 06/06/22 Rx mcg tablet (Daily-Werner (with folic acid)) sertraline 50 mg tablet 25 mg PO HS #27 tabs 04/20/22 06/06/22 Rx oxycodone-acetaminophen 10 mg-325 1 tab PO Q4H PRN pain #30 tabs 05/09/22 06/06/22 Rx mg tablet (Percocet) pregabalin 75 mg capsule 75 mg PO BID 06/06/22 06/06/22 History Past Med/Surg History Medical History (Updated 06/07/22 @ 04:32 by Jayson Staton MD) Acidosis, lactic Acute dehydration 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 No issues per anesthesia postop progress note. Anemia Cellulitis Chronic back pain Chronic pain syndrome Costochondritis COVID-19 Depression Diabetes mellitus type 2, uncontrolled Diabetic peripheral neuropathy Diastolic CHF DM2 (diabetes mellitus, type 2) IDDM, A1c 07/2021-11% Gastritis Gastroenteritis GIB (gastrointestinal bleeding) History of amputation of great toe HTN (hypertension) Hyperlipidemia Hyponatremia Infection of left great toe due to methicillin resistant Staphylococcus aureus (MRSA) Insomnia Insulin dependent diabetes mellitus Iron deficiency anemia Nonobstructive atherosclerosis of coronary artery Numbness of lower extremity Opiate abuse, continuous Opiate dependence Opioid dependence Osteomyelitis of great toe of left foot Peripheral neuropathy Right second toe ulcer Seizures Sepsis Surgical History (Updated 05/21/22 @ 00:08 by Barrett Persaud) History of esophagogastroduodenoscopy (EGD) History of right below knee amputation (12/22/21) Right Below Knee Amputation(Right) - Davon Good MD, FACS Family History Mother , age 63 Myocardial infarction Father , age 68 or 69 Myocardial infarction Brother S/P CABG (coronary artery bypass graft) Sister Myocardial infarction x 3; she is 57yo Social History Smoking Status: Current some day smoker Tobacco Type: Cigarettes packs per day: 0.5; Years Smoked: 20; Cigarettes Per Day: 20; Second Hand Exposure: No; Hx Alcohol Use: No Hx Substance Use: Yes Prescribed Medications: Marijuana Substance Use Type Other:: medical marijuana Preferred Language: Maori Communication Ability: Effective Visual Impairment: No Limitations Hearing Ability: Normal Off Premise Service Representative Required: No Beliefs That Will Affect Care: None marital status: Current Living Situation: Spouse current occupational status: unemployed 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 other: raising a grandchild as well; lives in [place] Feels Safe at Home: Yes Safety Concerns: Feels Safe At This Time during the past year weight has: remained stable Assistive Devices: Walker and Wheelchair Review of Systems Review of Systems: The patient denies chest pain, palpitations, shortness of breath, dyspnea on exertion, cough, sore throat, fevers, chills, sweats, nausea, vomiting, diarrhea , constipation, abdominal pain, pelvic pain, blood in urine or stool, dysuria, urinary frequency or urgency, lightheadedness, dizziness, headache, memory loss, loss of consciousness, abnormal bruising or bleeding, focal or generalized weakness, numbness or tingling in arms, or night sweats. The review of systems is otherwise negative other than for that already noted above, and at least 10 systems have been reviewed. Physical Exam Physical Exam: The patient is awake, alert and oriented 3, well developed and well nourished, normocephalic and atraumatic, lying in bed and in no acute distress. HEENT--PERRL, EOMI, mucous membranes and oropharynx dry. Neck--supple. No JVD. No bruits. Thyroid normal, trachea midline, no adenopathy. Heart--normal S1 and S2. No murmurs, rubs or gallops. Lungs--clear bilaterally, no respiratory distress, no accessory muscle use. Abdomen--normal bowel sounds and soft. Nontender. Nondistended, no hernias or masses, no organomegaly. Extremities--right AKA. Left great toe with erythema and erosion of plantar surface of left great toe. Strong DP pulse Dermatologic-see above Neurologic--cranial nerves II through XII grossly intact. Rheumatologic--normal range of motion excluding exam of right AKA Psychiatric--mildly anxious Results & Data Results & Data ([facility]) Vital Signs (Past 12 Hours) Vital Signs Temp Pulse Pulse Resp BP BP Pulse Ox 06/06/22 23:26 93 H 19 182/158 H 100 06/06/22 23:00 85 18 190/111 H 97 06/06/22 22:30 89 16 201/107 H 96 06/06/22 22:12 93 H 14 206/108 H 96 06/06/22 22:10 94 H 18 240/110 H 96 06/06/22 21:31 90 17 225/103 H 96 06/06/22 20:05 89 13 178/84 H 98 06/06/22 20:00 92 H 17 200/104 H 97 06/06/22 22:30 93 H 18 201/107 H 95 06/06/22 22:12 86 18 206/108 H 95 06/06/22 21:31 90 18 225/103 H 95 06/06/22 19:53 98 H 18 182/101 H 96 06/06/22 16:51 36.8 C 99 H 18 165/84 H 99 O2 Del Method 06/06/22 23:26 Room Air 06/06/22 23:00 Room Air 06/06/22 22:30 Room Air 06/06/22 22:12 Room Air 06/06/22 22:10 Room Air 06/06/22 21:31 Room Air 06/06/22 20:05 Room Air 06/06/22 20:00 Room Air 06/06/22 22:30 Room Air 06/06/22 22:12 Room Air 06/06/22 21:31 Room Air 06/06/22 19:53 Room Air 06/06/22 16:51 Room Air Laboratory Results Laboratory Results WBC 15.60 K/ul (4.8-10.8) H 06/06/22 17: RBC 5.68 M/uL (3.93-5.22) H 06/06/22 17:29 Hgb 14.6 g/dl (12.0-16.0) 06/06/22 17: Hct 45.4 % (34.1-44.9) H 06/06/22 17: MCV 79.9 fL (80.0-100.0) L 06/06/22 17:29 MCH 25.7 pg (25.0-34.0) 06/06/22 17: MCHC 32.2 g/dL (32.0-36.0) 06/06/22 17: RDW Std Deviation 50.9 fL (36.4-46.3) H 06/06/22: RDW Coeff of Maria [place] Carmen 17.9 % (11.5-14.5) H 06/06/22: Plt Count 330 K/uL (130-400) 06/06/22: MPV 10.0 fL (9.4-12.3) 06/06/22: Immature Gran % (Auto) 0.4 % 06/06/22: Neut % (Auto) 73.1 % 06/06/22: Lymph % (Auto) 18.9 % 06/06/22: Bates % (Auto) 5.3 % 06/06/22: Eos % (Auto) 1.7 % 06/06/22: Baso % (Auto) 0.6 % 06/06/22 Neut # (Auto) 11.40 K/uL (1.4-6.5) H 06/06/22: Lymph # (Auto) 2.95 K/uL (1.2-3.4) 06/06/22: Bates # (Auto) 0.83 K/uL (0.24-0.82) H 06/06/22: Eos # (Auto) 0.27 K/uL (0-0.50) 06/06/22: Baso # (Auto) 0.09 K/uL (0-0.2) 06/06/22: Immature Gran # (Auto) 0.06 K/uL (0.00-0.02) H 06/06/22: Sodium 136 mmol/L (136-145) 06/06/22: Potassium 4.0 mmol/L (3.5-5.1) 06/06/22 20:54 Chloride 99 mmol/L (98-107) 06/06/22: Carbon Dioxide 27 mmol/L (21-32) 06/06/22: Anion Gap 10 (3-11) 06/06/22: BUN 10 mg/dl (6-23) 06/06/22: Creatinine 0.52 mg/dl (0.6-1.2) L 06/06/22: Est Cr Clr Drug Dosing Not Reportable 06/06/22 17: Est GFR ( Amer) 122.1 ml/min 06/06/22: Est GFR (Non-Af Amer) 105.3 ml/min 06/06/22 17: BUN/Creatinine Ratio 19.2 (10-20) 06/06/22: Glucose 115 mg/dl (70-99(Fasting)) H 06/06/22: Calcium 10.5 mg/dl (8.5-10.1) H 06/06/22: Total Bilirubin 0.5 mg/dl (0.2-1.0) 06/06/22: AST 8 U/L (13-39) L 06/06/22 20:54 ALT 11 U/L (7-52) 06/06/22: Alkaline Phosphatase 102 U/L (34-104) 06/06/22: Total Protein 8.9 gm/dl (6.0-8.3) H 06/06/22: Albumin 5.1 gm/dl (3.4-5.0) H 06/06/22: Globulin 3.8 gm/dl (2.5-4.0) 06/06/22: Albumin/Globulin Ratio 1.3 (0.9-2) 06/06/22 17: Urine Color Yellow 06/06/22 19:00 Urine Appearance Clear (Clear) 06/06/22 19: Urine pH 7.0 (4.5-7.5) 06/06/22 19: Ur Specific [place] 1.011 (1.000-1.030) 06/06/22 19:00 Urine Protein Negative (Negative) 06/06/22 19:00 Urine Glucose (UA) Negative (Negative) 06/06/22 19:00 Urine Ketones Negative (Negative) 06/06/22 19: Urine Blood Negative (Negative) 06/06/22 19: Urine Nitrite Negative (Negative) 06/06/22 19: Urine Bilirubin Negative (Negative) 06/06/22 19: Urine Urobilinogen Negative (Negative) 06/06/22 19:00 Ur Leukocyte Esterase Negative (Negative) 06/06/22 19:00 SARS-CoV-2, RNA, NAAT NEGATIVE (NEGATIVE) 06/06/22 22:24 Impressions Venous Doppler Study 06/06/22 19:56 LEFT LOWER EXTREMITY VENOUS DOPPLER HISTORY: Left lower extremity pain. COMPARISON STUDY: None. FINDINGS: There is normal compressibility, flow, and augmentation within the left lower extremity deep venous system. IMPRESSION: No DVT within the left lower extremity. ACT 112: Negative or not required by law. Electronically signed by: Ernst Murray M.D. 06/06/2022 8:51 PM Code Status & VTE Plan Code Status Full code VTE Prophylaxis Plan VTE Prophylaxis will be ordered: Yes PG Care Time/CCT Total # of Minutes Spent Total Time Spent with Patient: Total time spent is greater than 50% in coordination of care (as documented) at patient's floor/unit and/or counseling patient: Coding Level of Care Code 45228 Initial Inpt Care Lvl 3 Diagnoses Cellulitis of left foot L03.116 MRSA (methicillin resistant staph aureus) culture positive Z22.322 Diabetes mellitus type 2, uncontrolled E11.65 PAD (peripheral artery disease) I73.9 Anxiety F41.9 Depression F32.9 Diabetic peripheral neuropathy E11.42 Chronic pain syndrome G89.4
[2022-06-07] MEDS ORDERED: GLUCAGON FOR INJ 1 MG VIAL SQ PRN (00:34)
[2022-06-07] MEDS ORDERED: GLUCOSE 10 TAB/TUBE PO PRN (00:34)
[2022-06-07] MEDS ORDERED: GLUCOSE 40% GEL 15 GM TUBE PO PRN (00:34)
[2022-06-07] MEDS ORDERED: DEXTROSE 50% 50 ML SYRINGE IV PRN (00:34)
[2022-06-07] MEDS ORDERED: ONDANSETRON 8MG OD TAB PO PRN (00:34)
[2022-06-07] MEDS ORDERED: CARBOHYDRATES FOR HYPOGLYCEMIA PO PRN (00:34)
[2022-06-07] MEDS: HYDROmorphone INJ 0.5 MG/0.5 ML SYR IV PRN ×7 (01:09→23:58)
[2022-06-07] MEDS: METOPROLOL TARTRATE 1 MG/ML VIAL IV PRN ×3 (01:09→21:52)
[2022-06-07] MEDS: PREGABALIN 75 MG CAP PO SCH ×3 (01:15→20:17)
[2022-06-07] MEDS ORDERED: rOPINIRole HCL 2 MG TABLET PO ONE (01:36)
[2022-06-07] MEDS: ONDANSETRON INJ 2 MG/ML 2 ML VIAL IV PRN ×3 (05:02→17:09)
[2022-06-07] MEDS ORDERED: ondansetron HCL 4 MG in DEXTROSE 5% 50 ML IV PRN (05:30)
[2022-06-07 07:40] LABS: Basophils # (auto) 0.04 K/uL (0-0.2); Basophils % (auto) 0.3 %; Eosinophils # (auto) 0.04 K/uL (0-0.50); Eosinophils % (auto) 0.3 %; Hematocrit (blood only) 44.8 % (34.1-44.9); Hemoglobin 14.6 g/dl (12.0-16.0); Immature Granulocytes # (auto) 0.05 K/uL (0.00-0.02); Immature Granulocytes % (auto) 0.4 %; Lymphocytes # (auto) 1.35 K/uL (1.2-3.4); Lymphocytes % (auto) 10.6 %; Mean Corpuscular Hemoglobin 26.3 pg (25.0-34.0); Mean Corpuscular Hgb Conc 32.6 g/dL (32.0-36.0); Mean Corpuscular Volume 80.6 fL (80.0-100.0); Mean Platelet Volume 9.7 fL (9.4-12.3); Monocytes # (auto) 0.38 K/uL (0.24-0.82); Neutrophils # (auto) 10.93 K/uL (1.4-6.5); Neutrophils % (auto) 85.4 %; Platelet Count 316 K/uL (130-400); RDW Coefficient of Variation 17.2 % (11.5-14.5); RDW Standard Deviation 50.1 fL (36.4-46.3); Red Blood Count 5.56 M/uL (3.93-5.22); White Blood Count 12.79 K/ul (4.8-10.8)
[2022-06-07] MEDS: CYCLOBENZAPRINE HCL 10 MG TAB PO PRN (07:54)
[2022-06-07] MEDS: hydrOXYzine HCl 25 MG TAB PO SCH (07:54)
[2022-06-07] MEDS: MULTIVITAMIN TAB PO SCH (07:54)
[2022-06-07] MEDS: CLOPIDOGREL BISULFATE 75 MG TAB PO SCH (07:55)
[2022-06-07] MEDS: METOPROLOL SUCC 50MG EXT REL TAB PO SCH (07:55)
[2022-06-07] MEDS: ENOXAPARIN INJ 40 MG/0.4 ML SYR SQ SCH (07:55)
[2022-06-07] MEDS: ASPIRIN 81 MG ECTAB PO SCH (07:55)
[2022-06-07] MEDS: DOXYCYCLINE HYCLATE 100 MG in DEXTROSE 5% 100 ML IV SCH ×2 (08:00→21:22)
[2022-06-07 08:03] LABS: Albumin Globulin Ratio 1.5 (0.9-2); Albumin Level 4.8 gm/dl (3.4-5.0); BUN Creatinine Ratio 22.7 (10-20); Bilirubin,Total 0.6 mg/dl (0.2-1.0); Calcium 9.8 mg/dl (8.5-10.1); Creatinine Clr Calc Pharmacy 129.6 ml/min; Est GFR (Non-African American) 111.3 ml/min; Globulin 3.3 gm/dl (2.5-4.0); Magnesium 1.9 mg/dl (1.7-2.4); Potassium 3.8 mmol/L (3.5-5.1); Total Protein 8.1 gm/dl (6.0-8.3)
[2022-06-07] MEDS: INSULIN ASPART PER UNIT SC SCH ×4 (08:09→20:50)
--- NOTE | 2022-06-07 14:11 | Hospitalist Progress Note ---
Date of Service June 07, 2022 Assessment & Plan (1) Cellulitis of left foot: Plan: Cellulitis of left great toe/recent osteomyelitis/history of MRSA- Received ceftriaxone 2 g IV and doxycycline 100 mg p.o. from the ED. Admit on ceftriaxone 2 g IV and doxycycline 100 mg IV twice daily Consider ordering MRI of left foot in the morning to assess for possible osteomyelitis, however, [patient said unable to withstand MRI due to persistent nausea Acetaminophen 650 mg NPO every 6 hours. Mild pain or fever Oxycodone/acetaminophen 5/325, 1 p.o. every 4 hours as needed moderate pain Dilaudid 0.5 mg IV every 3 hours as needed severe pain (2) Diabetes mellitus type 2, uncontrolled: Plan: Continue Lantus insulin 20 units subcu at bedtime Hold standing orders of lispro 3 times daily Placed on Accu-Cheks before meals and at bedtime with NovoLog coverage per scale (3) Nausea: Plan: patient still complains of [persistent nausea could be due to gastroparesis from Diabetes Zofran PRN (4) MRSA (methicillin resistant staph aureus) culture positive: (5) PAD (peripheral artery disease): Plan: Continue aspirin and clopidogrel (6) Anxiety: Plan: Anxiety/depression continue hydroxyzine, lorazepam, sertraline and zolpidem (7) Depression: (8) Diabetic peripheral neuropathy: Plan: Continue pregabalin and ropinirole (9) Chronic pain syndrome: Plan: As above Admission and Anticipated Discharge Date Admission Date: June 06, 2022 Subjective patient seen and examined, still has intractable nausea and vomiting Review of Systems Review of Systems: All systems reviewed are negative, apart from the ones contained in the history. Physical Exam Physical Exam: The patient is awake, alert and oriented 3, well developed and well nourished, normocephalic and atraumatic, lying in bed and in no acute distress. HEENT--PERRL, EOMI, mucous membranes and oropharynx mildly dry Neck--supple. No JVD. No bruits. Thyroid normal, trachea midline, no adenopathy. Heart--normal S1 and S2. No murmurs, rubs or gallops. Lungs--clear bilaterally, no respiratory distress, no accessory muscle use. Abdomen--normal bowel sounds and soft. Mild epigastric and left sided abdominal pain Extremities--RBKA, left big toe cellulitis Dermatologic--normal skin turgor, normal color, no abnormal lymph nodes, no rash. Neurologic--cranial nerves II through XII grossly intact. Rheumatologic--normal range of motion. Psychiatric--normal affect. Results & Data Results & Data ([facility]) Vital Signs (Past 12 Hours) Vital Signs Temp Pulse Pulse Resp BP Pulse Ox O2 Del Method 06/07/22 08:00 81 06/07/22 08:00 Room Air 06/07/22 07:30 98.6 F 86 16 202/98 H 98 Room Air 06/07/22 02:59 97.9 F 83 22 194/96 H 98 Room Air 06/07/22 02:20 79 PG Care Time/CCT Total # of Minutes Spent Total Time Spent with Patient: Total time spent is greater than 50% in coordination of care (as documented) at patient's floor/unit and/or counseling patient: Coding Level of Care Code 09001 Subseq Hosp Care Lvl 2 Diagnoses Cellulitis of left foot L03.116 Diabetes mellitus type 2, uncontrolled E11.65 Nausea R11.0 MRSA (methicillin resistant staph aureus) culture positive Z22.322 PAD (peripheral artery disease) I73.9 Anxiety F41.9 Depression F32.9 Diabetic peripheral neuropathy E11.42 Chronic pain syndrome G89.4 Time Spent (min) 35
[2022-06-07] MEDS ORDERED: hydrALAZINE HCL 20 MG/ML VIAL IV STA (15:52)
[2022-06-07] MEDS ORDERED: cefTRIAXone SODIUM 1,000 MG in DEXTROSE 5% 50 ML IV SCH (18:00)
[2022-06-07] MEDS: ZOLPIDEM TARTRATE 10 MG TAB PO PRN (19:52)
[2022-06-07] MEDS: SERTRALINE HCL 50 MG TABLET PO SCH (19:52)
[2022-06-07] MEDS: rOPINIRole HCL 2 MG TABLET PO SCH (19:53)
[2022-06-07] MEDS: LORazepam 1 MG TAB PO PRN (20:28)
[2022-06-07] MEDS: LANTUS PER UNIT CHARGE SQ SCH (20:50)
[2022-06-07] MEDS: PROMETHAZINE HCL 12.5 MG in SODIUM CHLORIDE 0.9% 50 ML IV PRN (20:53)
[2022-06-07] MEDS ORDERED: diphenhydrAMINE 50 MG/ML VIAL IV STA (21:15)
--- NOTE | 2022-06-07 21:19 | Communication Note ---
Date of Service: June 07, 2022 Informed by nursing that patient dry heaving. Dark red hematemesis. Rash of arms. On my assessment, fading petechial rash at R forearm. Ordering IV benadryl 12.5mg x1 and protonix 40mg IV bid. Holding sq lovenox.
[2022-06-07] MEDS: PANTOprazole 40 MG in SYRINGE 0 ML IV SCH (21:52)
[2022-06-08] MEDS: ONDANSETRON INJ 2 MG/ML 2 ML VIAL IV PRN ×3 (03:00→21:03)
[2022-06-08] MEDS: METOPROLOL TARTRATE 1 MG/ML VIAL IV PRN (03:10)
[2022-06-08] MEDS: HYDROmorphone INJ 0.5 MG/0.5 ML SYR IV PRN ×6 (03:40→21:03)
[2022-06-08] MEDS: LORazepam 1 MG TAB PO PRN ×2 (07:37→17:44)
[2022-06-08 08:00] LABS: Basophils # (auto) 0.04 K/uL (0-0.2); Basophils % (auto) 0.2 %; Eosinophils # (auto) 0.01 K/uL (0-0.50); Eosinophils % (auto) 0.1 %; Hemoglobin 14.6 g/dl (12.0-16.0); Immature Granulocytes # (auto) 0.09 K/uL (0.00-0.02); Immature Granulocytes % (auto) 0.5 %; Lymphocytes # (auto) 2.82 K/uL (1.2-3.4); Lymphocytes % (auto) 14.4 %; Mean Corpuscular Hgb Conc 33.2 g/dL (32.0-36.0); Mean Corpuscular Volume 78.4 fL (80.0-100.0); Mean Platelet Volume 10.1 fL (9.4-12.3); Monocytes # (auto) 1.12 K/uL (0.24-0.82); Monocytes % (auto) 5.7 %; Neutrophils # (auto) 15.49 K/uL (1.4-6.5); Neutrophils % (auto) 79.1 %; Platelet Count 363 K/uL (130-400); RDW Coefficient of Variation 17.6 % (11.5-14.5); RDW Standard Deviation 48.7 fL (36.4-46.3); Red Blood Count 5.61 M/uL (3.93-5.22); White Blood Count 19.57 K/ul (4.8-10.8)
[2022-06-08] MEDS: PROMETHAZINE HCL 12.5 MG in SODIUM CHLORIDE 0.9% 50 ML IV PRN (08:06)
[2022-06-08 08:32] LABS: Albumin Globulin Ratio 1.3 (0.9-2); Albumin Level 4.6 gm/dl (3.4-5.0); BUN Creatinine Ratio 38.1 (10-20); Bilirubin,Total 0.7 mg/dl (0.2-1.0); Calcium 10.3 mg/dl (8.5-10.1); Est GFR (African American) 114.6 ml/min; Est GFR (Non-African American) 98.9 ml/min; Globulin 3.6 gm/dl (2.5-4.0); Magnesium 1.9 mg/dl (1.7-2.4); Potassium 3.3 mmol/L (3.5-5.1); Total Protein 8.2 gm/dl (6.0-8.3)
[2022-06-08] MEDS: DOXYCYCLINE HYCLATE 100 MG in DEXTROSE 5% 100 ML IV SCH (08:39)
[2022-06-08] MEDS: ASPIRIN 81 MG ECTAB PO SCH (08:43)
[2022-06-08] MEDS: PREGABALIN 75 MG CAP PO SCH ×2 (08:43→21:04)
[2022-06-08] MEDS: MULTIVITAMIN TAB PO SCH (08:44)
[2022-06-08] MEDS: METOPROLOL SUCC 50MG EXT REL TAB PO SCH (08:44)
[2022-06-08] MEDS: CLOPIDOGREL BISULFATE 75 MG TAB PO SCH (08:44)
[2022-06-08] MEDS: hydrOXYzine HCl 25 MG TAB PO SCH (08:44)
[2022-06-08] MEDS: CYCLOBENZAPRINE HCL 10 MG TAB PO PRN (08:50)
[2022-06-08] MEDS: PANTOprazole 40 MG in SYRINGE 0 ML IV SCH ×2 (08:50→21:03)
[2022-06-08] MEDS: INSULIN ASPART PER UNIT SC SCH ×4 (09:19→21:47)
--- NOTE | 2022-06-08 14:24 | Consultation ---
Date of Consultation June 08, 2022 Assessment & Plan (1) Poor venous access: Due to ongoing infection of the left great toe would recommend an insertion of a castro rather than a port. I have discussed the risks options and benefits of the procedure with the patient. The patient understands the risks options and benefits and agrees to the procedure. This will be done tomorrow. Thank you very much for letting us participate in the care of this patient. History of Present Illness Reason for Consultation: Lack of venous access, MRSA foot infection Attending Physician: Dina Yarbrough MD History of Present Illness This is a 57yo female with doumented MRSA infection of her left foot in february of this year. She was readmitted at this admission for cellulitis of the left foot. She has had numerous venous access sites. A long distance operator site is needed for long distance operator antibiotics. Allergies Allergy/AdvReac Type Severity Reaction Status Date / Time morphine Allergy Severe blisters Verified 06/06/22 21:09 in mouth Sulfa (Sulfonamide Allergy Severe rash/swelli Verified 06/06/22 21:09 Antibiotics) ng iron [From Venofer] Allergy Intermediate Hypertensio Verified 06/06/22 21:09 n vancomycin Allergy Intermediate YULIYA Verified 06/06/22 21:09 SYNDROME---CAN TAKE IF VERY SLOW DRIP. amoxicillin [From Augmentin] Allergy Mild itching/power Verified 06/06/22 21:09 h clavulanic acid Allergy Mild itching/power Verified 06/06/22 21:09 [From Augmentin] h dermabond AdvReac excoriates Uncoded 06/06/22 21:09 skin Home Medications Medication Instructions Recorded Confirmed Type ropinirole 2 mg tablet 4 mg PO HS 10/19/20 06/06/22 History metoprolol succinate 50 mg 50 mg PO QAM 03/05/21 06/06/22 History tablet,extended release 24 hr (Toprol XL) lorazepam 1 mg tablet (Ativan) 1 mg PO TID PRN Anxiety 11/04/21 06/06/22 History cyclobenzaprine 10 mg tablet 10 mg PO BID PRN Muscle Spasm 11/24/21 06/06/22 History insulin glargine 100 unit/mL (3 20 unit subcut HS 03/08/22 06/06/22 History mL) subcutaneous pen (Lantus Solostar U-100 Insulin) insulin lispro 100 unit/mL 5 unit subcut TIDM 03/08/22 06/06/22 History subcutaneous pen ondansetron 8 mg disintegrating 8 mg translingual TID PRN Nausea 03/08/22 06/06/22 History tablet zolpidem 10 mg tablet 10 mg PO HS PRN Sleep 03/08/22 06/06/22 History clopidogrel 75 mg tablet 75 mg PO QAM #30 tabs 03/30/22 06/06/22 Rx aspirin 81 mg tablet,delayed 81 mg PO DAILY #30 tabs 04/20/22 06/06/22 Rx release (Melissa Low Dose Aspirin) hydroxyzine HCl 25 mg tablet 25 mg PO QAM #90 tabs 04/20/22 06/06/22 Rx multivitamin with folic acid 400 1 tab PO QAM #30 tabs 04/20/22 06/06/22 Rx mcg tablet (Daily-Werner (with folic acid)) sertraline 50 mg tablet 25 mg PO HS #27 tabs 04/20/22 06/06/22 Rx oxycodone-acetaminophen 10 mg-325 1 tab PO Q4H PRN pain #30 tabs 05/09/22 06/06/22 Rx mg tablet (Percocet) pregabalin 75 mg capsule 75 mg PO BID 06/06/22 06/06/22 History Patient History Medical History Acidosis, lactic Acute dehydration 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 No issues per anesthesia postop progress note. Anemia Cellulitis Chronic back pain Chronic pain syndrome Costochondritis COVID-19 Depression Diabetes mellitus type 2, uncontrolled Diabetic peripheral neuropathy Diastolic CHF DM2 (diabetes mellitus, type 2) IDDM, A1c 07/2021-11% Gastritis Gastroenteritis GIB (gastrointestinal bleeding) History of amputation of great toe HTN (hypertension) Hyperlipidemia Hyponatremia Infection of left great toe due to methicillin resistant Staphylococcus aureus (MRSA) Insomnia Insulin dependent diabetes mellitus Iron deficiency anemia Nonobstructive atherosclerosis of coronary artery Numbness of lower extremity Opiate abuse, continuous Opiate dependence Opioid dependence Osteomyelitis of great toe of left foot Peripheral neuropathy Right second toe ulcer Seizures Sepsis Surgical History History of esophagogastroduodenoscopy (EGD) History of right below knee amputation (12/22/21) Right Below Knee Amputation(Right) - Davon Good MD, FACS Family History Mother , age 63 Myocardial infarction Father , age 68 or 69 Myocardial infarction Brother S/P CABG (coronary artery bypass graft) Sister Myocardial infarction x 3; she is 57yo Social History Smoking Status: Current some day smoker Tobacco Type: Cigarettes packs per day: 0.5; Years Smoked: 20; Cigarettes Per Day: 20; Second Hand Exposure: No; Hx Alcohol Use: No Hx Substance Use: Yes Prescribed Medications: Marijuana Substance Use Type Other:: medical marijuana Preferred Language: Japanese Communication Ability: Effective Visual Impairment: No Limitations Hearing Ability: Normal Front End Software Developer Required: No Beliefs That Will Affect Care: None marital status: Current Living Situation: Spouse current occupational status: unemployed 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 other: raising a grandchild as well; lives in [place] Feels Safe at Home: Yes Safety Concerns: Feels Safe At This Time during the past year weight has: remained stable Assistive Devices: Prosthesis, Walker and Wheelchair Review of Systems Review of Systems: All systems reviewed & are unremarkable except as noted in HPI & below Physical Exam Constitutional: WD/WN, vitals as above Respiratory: normal respiratory effort, lungs clear to auscultation Cardiovascular: RRR, no murmur, no edema Gastrointestinal (Abdomen): Inspection/Auscultation: abdomen normal to inspection; abdomen not distended Percussion/Palpation: abdomen soft Musculoskeletal: no cyanosis or clubbing, extremities motor strength 5/5 Skin: + wound (open wound left great toe) Neurologic: CN's II-XI intact bilaterally and moves all extremities Psychiatric: Orientation: alert and oriented x 3 Results & Data ([facility]) Vital Signs (Past 12 Hours) Vital Signs Temp Pulse Pulse Resp BP Pulse Ox O2 Del Method 06/08/22 07:00 86 06/08/22 11:11 37.1 C 96 H 18 168/88 H 93 Room Air 06/08/22 07:18 36.6 C 99 H 19 211/94 H 96 Room Air 06/08/22 03:48 36.8 C 96 H 20 164/87 H 96 Room Air
--- NOTE | 2022-06-08 14:25 | Magnetic Resonance Report ---
MR foot LT w/o con HISTORY: 57 years-old Female osteomyelitis chronic left foot pain with clinical concern for osteomye litis COMPARISON: Foot radiographs 04/27/2022, MRI left foot 04/10/2022 TECHNIQUE: Multiplanar multisequence MRI of the left foot was obtained without the use of IV contrast . FINDINGS: Motion degraded exam. There is only minimal marginal spurring throughout the imaged foot. Joint space s are relatively well-preserved. Lisfranc articulation is preserved. The imaged flexor and extensor t endons appear intact. Plantar plates appear intact. Mild adventitial bursitis of the forefoot. Subcut aneous edema of the talus, most pronounced within the great toe. No focal fluid collection. No acute fracture or dislocation. Edema noted beneath the great toe nailbed. Minimal marrow edema of the great toe distal phalangeal tuft with preserved T1 marrow signal and no osseous erosion. IMPRESSION: 1. Suggested cellulitis of the forefoot, most pronounced within the great toe with probable associate d paronychia. No abscess. 2. Minimal marrow edema of the first distal phalangeal tuft with preserved T1 signal suggestive of os teitis. Early osteomyelitis could appear similarly. No osseous erosions identified. ACT 112: Negative or not required by law. The above report was generated using voice recognition software. It may contain grammatical, syntax o r spelling errors. Electronically signed by: Puneet Howard M.D. 06/08/2022 2:23 PM
[2022-06-08] MEDS ORDERED: VANCOMYCIN CONSULT ACTIVE PRN (16:08)
--- NOTE | 2022-06-08 16:14 | Hospitalist Progress Note ---
Date of Service June 08, 2022 Assessment & Plan (1) Cellulitis of left foot: Plan: Cellulitis of left great toe/recent osteomyelitis/history of MRSA- Received ceftriaxone 2 g IV and doxycycline 100 mg p.o. from the ED. 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 Mild pain or fever Oxycodone/acetaminophen 5/325, 1 p.o. every 4 hours as needed moderate pain Dilaudid 0.5 mg IV every 3 hours as needed severe pain (2) Diabetes mellitus type 2, uncontrolled: Plan: Continue Lantus insulin 20 units subcu at bedtime Hold standing orders of lispro 3 times daily Placed on Accu-Cheks before meals and at bedtime with NovoLog coverage per scale (3) Nausea: Plan: Improving could be due to gastroparesis from Diabetes Zofran PRN (4) MRSA (methicillin resistant staph aureus) culture positive: (5) PAD (peripheral artery disease): Plan: Continue aspirin and clopidogrel (6) Anxiety: Plan: Anxiety/depression continue hydroxyzine, lorazepam, sertraline and zolpidem (7) Depression: (8) Diabetic peripheral neuropathy: Plan: Continue pregabalin and ropinirole (9) Chronic pain syndrome: Plan: As above Plan Patient will require nursing home antibiotics, will obtain a Rivas line tomorrow by vascular surgery Admission and Anticipated Discharge Date Admission Date: June 06, 2022 Subjective patient seen and examined, much improved nausea Review of Systems Review of Systems: All systems reviewed are negative, apart from the ones contained in the history. Physical Exam Physical Exam: The patient is awake, alert and oriented 3, well developed and well nourished, normocephalic and atraumatic, lying in bed and in no acute distress. HEENT--PERRL, EOMI, mucous membranes and oropharynx mildly dry Neck--supple. No JVD. No bruits. Thyroid normal, trachea midline, no adenopathy. Heart--normal S1 and S2. No murmurs, rubs or gallops. Lungs--clear bilaterally, no respiratory distress, no accessory muscle use. Abdomen--normal bowel sounds and soft. Mild epigastric and left sided abdominal pain Extremities--RBKA, left big toe cellulitis Dermatologic--normal skin turgor, normal color, no abnormal lymph nodes, no rash. Neurologic--cranial nerves II through XII grossly intact. Rheumatologic--normal range of motion. Psychiatric--normal affect. Results & Data Results & Data ([facility]) Vital Signs (Past 12 Hours) Vital Signs Temp Pulse Pulse Resp BP Pulse Ox O2 Del Method 06/08/22 15:42 98.8 F 90 18 131/80 95 Room Air 06/08/22 07:00 86 06/08/22 11:11 98.8 F 96 H 18 168/88 H 93 Room Air 06/08/22 07:18 97.9 F 99 H 19 211/94 H 96 Room Air PG Care Time/CCT Total # of Minutes Spent Total Time Spent with Patient: Total time spent is greater than 50% in coordination of care (as documented) at patient's floor/unit and/or counseling patient: Coding Level of Care Code 38068 Subseq Hosp Care Lvl 2 Diagnoses Cellulitis of left foot L03.116 Diabetes mellitus type 2, uncontrolled E11.65 Nausea R11.0 MRSA (methicillin resistant staph aureus) culture positive Z22.322 PAD (peripheral artery disease) I73.9 Anxiety F41.9 Depression F32.9 Diabetic peripheral neuropathy E11.42 Chronic pain syndrome G89.4 Time Spent (min) 35
[2022-06-08] MEDS ORDERED: VANCOMYCIN HCL 1,000 MG in SODIUM CHLORIDE 0.9% 500 ML IV SCH (16:15)
[2022-06-08] MEDS ORDERED: VANCOMYCIN HCL 1,750 MG in SODIUM CHLORIDE 0.9% 500 ML IV ONE (16:30)
--- NOTE | 2022-06-08 18:47 | Pharmacy Report ---
Pharmacy PK ABX Note - Date of Service June 08, 2022 - Assessment and Plan Assessment 57 year old F previously receiving doxycycline and ceftriaxone, now ordered vancomycin for treatment of left foot cellulitis, osteitis, and possible early osteomyelitis. Patient well-known to pharmacy PK service with extensive history of MRSA infections. Rivas insertion scheduled for tomorrow. Day # 1 of antimicrobial therapy. Plan Vancomycin * Loading dose: 1750 mg IV x 1 * Maintenance dose: 1250 mg IV every 8 hours * Initial dosing based on prior admission data showing long-term success with ordered regimen * Vancomycin level ordered for: 06/10/22 prior to 5th maintenance dose Pharmacy will continue to follow and will adjust dose/frequency as necessary. Thank you. Pharmacy has transitioned to AUC monitoring for vancomycin. AUC/CELSO is the preferred PK/PD target and is associated with decreased risk of nephrotoxicity compared to traditional trough targets.
[2022-06-08] MEDS: rOPINIRole HCL 2 MG TABLET PO SCH (21:04)
[2022-06-08] MEDS: SERTRALINE HCL 50 MG TABLET PO SCH (21:04)
[2022-06-08] MEDS: ZOLPIDEM TARTRATE 10 MG TAB PO PRN (21:04)
[2022-06-08] MEDS: LANTUS PER UNIT CHARGE SQ SCH (21:47)
[2022-06-08] MEDS ORDERED: diphenhydrAMINE 50 MG/ML VIAL IV ONE (21:50)
--- NOTE | 2022-06-08 21:52 | Communication Note ---
Date of Service: June 08, 2022 bilat arm rash. ordering IV benadryl. 2nd night with rash now. dayshift to assess follow if any medication allergies
[2022-06-08] MEDS ORDERED: diphenhydrAMINE 50 MG/ML VIAL ONE (22:04)
[2022-06-09] MEDS ORDERED: VANCOMYCIN HCL 1,000 MG in SODIUM CHLORIDE 0.9% 250 ML IV SCH
[2022-06-09] MEDS: VANCOMYCIN HCL 1,250 MG in SODIUM CHLORIDE 0.9% 250 ML IV SCH ×4 (00:39→23:51)
[2022-06-09] MEDS: HYDROmorphone INJ 0.5 MG/0.5 ML SYR IV PRN ×8 (01:08→23:31)
[2022-06-09] MEDS: ONDANSETRON INJ 2 MG/ML 2 ML VIAL IV PRN ×2 (03:37→09:48)
[2022-06-09] MEDS: PROMETHAZINE HCL 12.5 MG in SODIUM CHLORIDE 0.9% 50 ML IV PRN ×2 (04:24→15:57)
[2022-06-09] MEDS: METOPROLOL TARTRATE 1 MG/ML VIAL IV PRN (04:24)
[2022-06-09 07:11] LABS: Basophils # (auto) 0.05 K/uL (0-0.2); Basophils % (auto) 0.4 %; Eosinophils # (auto) 0.09 K/uL (0-0.50); Eosinophils % (auto) 0.7 %; Hematocrit (blood only) 39.5 % (34.1-44.9); Immature Granulocytes # (auto) 0.06 K/uL (0.00-0.02); Immature Granulocytes % (auto) 0.5 %; Lymphocytes # (auto) 2.45 K/uL (1.2-3.4); Mean Corpuscular Hemoglobin 26.5 pg (25.0-34.0); Mean Corpuscular Hgb Conc 32.9 g/dL (32.0-36.0); Mean Corpuscular Volume 80.6 fL (80.0-100.0); Mean Platelet Volume 9.8 fL (9.4-12.3); Monocytes % (auto) 7.8 %; Neutrophils # (auto) 9.23 K/uL (1.4-6.5); Neutrophils % (auto) 71.6 %; Platelet Count 278 K/uL (130-400); RDW Coefficient of Variation 16.6 % (11.5-14.5); RDW Standard Deviation 48.9 fL (36.4-46.3); White Blood Count 12.88 K/ul (4.8-10.8)
[2022-06-09 07:38] LABS: Alanine Aminotransferase 9 U/L (7-52); Albumin Globulin Ratio 1.5 (0.9-2); Albumin Level 4.1 gm/dl (3.4-5.0); Alkaline Phosphatase 82 U/L (34-104); Anion Gap 7 (3-11); Aspartate Aminotransferase 9 U/L (13-39); BUN Creatinine Ratio 42.3 (10-20); Bilirubin,Total 0.6 mg/dl (0.2-1.0); Blood Urea Nitrogen 22 mg/dl (6-23); C Reactive Protein < 0.50 mg/dl (0-0.5); Calcium 9.2 mg/dl (8.5-10.1); Carbon Dioxide 28 mmol/L (21-32); Chloride 99 mmol/L (98-107); Creatinine Clr Calc Pharmacy 109.1 ml/min; Est GFR (African American) 122.1 ml/min; Est GFR (Non-African American) 105.3 ml/min; Globulin 2.7 gm/dl (2.5-4.0); Glucose 147 mg/dl (70-99(Fasting)); Magnesium 1.8 mg/dl (1.7-2.4); Potassium 3.6 mmol/L (3.5-5.1); Sodium 134 mmol/L (136-145); Total Protein 6.8 gm/dl (6.0-8.3)
--- NOTE | 2022-06-09 07:47 | History & Physical Bridge Note ---
Date of Service June 09, 2022 History & Physical Bridge Note Patient for insertion of castro catheter. I have discussed the risks options and benefits of the procedure with the patient. The patient understands the risks options and benefits and agrees to the procedure. I have examined the patient, reviewed the History & Physical and in the interval since the performance of the History & Physical I have noted the following changes of clinical significance: no changes noted
[2022-06-09] MEDS: INSULIN ASPART PER UNIT SC SCH ×4 (08:39→19:53)
[2022-06-09] MEDS: hydrOXYzine HCl 25 MG TAB PO SCH (09:48)
[2022-06-09] MEDS: METOPROLOL SUCC 50MG EXT REL TAB PO SCH (09:48)
[2022-06-09] MEDS: MULTIVITAMIN TAB PO SCH (09:52)
[2022-06-09] MEDS: PREGABALIN 75 MG CAP PO SCH ×2 (09:53→19:59)
[2022-06-09] MEDS: PANTOprazole 40 MG in SYRINGE 0 ML IV SCH ×2 (10:12→19:59)
[2022-06-09] MEDS ORDERED: MIDAZOLAM HCL 1 MG/ML 2ML VIAL ONE (11:43)
[2022-06-09] MEDS ORDERED: ONDANSETRON INJ 2 MG/ML 2 ML VIAL ONE (11:43)
[2022-06-09] MEDS ORDERED: PROPOFOL IV EMULSION 10 MG/ML 20 ML VIAL IV ONE (11:43)
[2022-06-09] MEDS ORDERED: fentaNYL citrate 100 MCG/2 ML VIAL ONE (11:43)
[2022-06-09] MEDS ORDERED: DEXAMETHASONE SOD INJ 4 MG/ML VIAL ONE (11:43)
--- NOTE | 2022-06-09 12:12 | Anesthesiology Consultation ---
Date of Service June 09, 2022 Assessment & Plan Chart Review Chart Review: Acceptable Risk for Surgery and Patient NOT seen in Pre Admission Testing Consults Requested none ASA ASA3 Proposed Anesthesia Anesthesia Type: MAC Risk / Benefits Reviewed With: PT / POA / Parent / Guardian, Accepts Plan and Informed Consent Obtained History Surgery Operation Date: 06/09/22 07:00 Proposed Procedures p Rivas Catheter Insertion - Lavon Fuentes MD Height/Weight Height: 5 ft 2 in Weight: 71.3 kg Allergies Allergy/AdvReac Type Severity Reaction Status Date / Time morphine Allergy Severe blisters Verified 06/06/22 21:09 in mouth Sulfa (Sulfonamide Allergy Severe rash/swelli Verified 06/06/22 21:09 Antibiotics) ng iron [From Venofer] Allergy Intermediate Hypertensio Verified 06/06/22 21:09 n vancomycin Allergy Intermediate YULIYA Verified 06/06/22 21:09 SYNDROME---CAN TAKE IF VERY SLOW DRIP. amoxicillin [From Augmentin] Allergy Mild itching/power Verified 06/06/22 21:09 h clavulanic acid Allergy Mild itching/power Verified 06/06/22 21:09 [From Augmentin] h dermabond AdvReac excoriates Uncoded 06/06/22 21:09 skin Medications Home Medications Medication Instructions Recorded Confirmed Last Taken ropinirole 2 mg tablet 4 mg PO HS 10/19/20 06/06/22 03/07/22 metoprolol succinate 50 mg 50 mg PO QAM 03/05/21 06/06/22 04/06/22 09:00 tablet,extended release 24 hr (Toprol XL) lorazepam 1 mg tablet (Ativan) 1 mg PO TID PRN Anxiety 11/04/21 06/06/22 2 09:00 cyclobenzaprine 10 mg tablet 10 mg PO BID PRN Muscle Spasm 11/24/21 06/06/22 03/08/22 insulin glargine 100 unit/mL (3 20 unit subcut HS 03/08/22 06/06/22 04/05/22 21:00 mL) subcutaneous pen (Lantus Solostar U-100 Insulin) insulin lispro 100 unit/mL 5 unit subcut TIDM 03/08/22 06/06/22 04/06/22 09:00 subcutaneous pen ondansetron 8 mg disintegrating 8 mg translingual TID PRN Nausea 03/08/22 06/06/22 Unknown tablet zolpidem 10 mg tablet 10 mg PO HS PRN Sleep 03/08/22 06/06/22 Unknown clopidogrel 75 mg tablet 75 mg PO QAM #30 tabs 03/30/22 06/06/22 04/06/22 09:00 aspirin 81 mg tablet,delayed 81 mg PO DAILY #30 tabs 04/20/22 06/06/22 04/06/22 09:00 release (Melissa Low Dose Aspirin) hydroxyzine HCl 25 mg tablet 25 mg PO QAM #90 tabs 04/20/22 06/06/22 Unknown multivitamin with folic acid 400 1 tab PO QAM #30 tabs 04/20/22 06/06/22 Unknown mcg tablet (Daily-Werner (with folic acid)) sertraline 50 mg tablet 25 mg PO HS #27 tabs 04/20/22 06/06/22 Unknown oxycodone-acetaminophen 10 mg-325 1 tab PO Q4H PRN pain #30 tabs 05/09/2206/06 Unknown mg tablet (Percocet) pregabalin 75 mg capsule 75 mg PO BID 06/06/22 06/06/22 Unknown Active Medications Generic Name Dose Route Start Last Admin Trade Name John PRN Reason Stop Dose Admin Aspirin 81 mg 06/07/22 09:00 06/08/22 08:43 Aspirin 81 Mg Ectab PO 07/07/22 08:59 81 mg DAILY RICKY Administration Clopidogrel Bisulfate 75 mg 06/07/22 09:00 06/08/22 08:44 Clopidogrel Bisulfate 75 Mg Tab PO 07/07/22 08:59 75 mg QAM RICKY Administration Cyclobenzaprine HCl 10 mg 06/07/22 00:34 06/08/22 08:50 Cyclobenzaprine Hcl 10 Mg Tab PO 07/07/22 00:33 10 mg BID PRN Administration Muscle Spasm Enoxaparin Sodium 40 mg 06/07/22 09:00 06/07/22 07:55 Enoxaparin Inj 40 Mg/0.4 Ml Syr SQ 07/07/22 08:59 40 mg Q24H RICKY Administration Hydromorphone HCl 0.5 mg 06/06/22 23:35 06/09/22 10:53 Hydromorphone Inj 0.5 Mg/0.5 Ml Syr IV 06/20/22 23:34 0.5 mg Q3H PRN Administration Severe Pain Hydroxyzine HCl 25 mg 06/07/22 09:00 06/09/22 09:48 Hydroxyzine Hcl 25 Mg Tab PO 07/07/22 08:59 25 mg QAM RICKY Administration Promethazine HCl 12.5 mg/ 50.5 mls @ 202 mls/hr 06/07/22 18:54 06/09/22 04:42 Sodium Chloride IV 07/07/22 18:53 Infused Q6H PRN Infusion Nausea And Vomiting Pantoprazole Sodium 40 mg/ 10 mls @ 5 mls/min 06/07/22 21:30 06/09/22 10:12 Syringe IV 07/07/22 21:29 5 mls/min BID RICKY Administration Vancomycin HCl 1,250 mg/ 275 mls @ 100 mls/hr 06/09/22 00:00 06/09/22 11:38 Sodium Chloride IV 07/21/22 00:00 Infused Q8H RICKY Infusion Protocol Insulin Aspart 0 units 06/07/22 07:30 06/09/22 08:39 Insulin Aspart Per Unit SC 07/07/22 07:29 1 units ACHS RICKY Administration Insulin Glargine 20 units 06/07/22 21:00 06/08/22 21:47 Lantus Per Unit Charge SQ 07/07/22 20:59 20 units HS RICKY Administration Lorazepam 1 mg 06/07/22 00:34 06/08/22 17:44 Lorazepam 1 Mg Tab PO 07/07/22 00:33 1 mg TID PRN Administration Anxiety Metoprolol Succinate 50 mg 06/07/22 09:00 06/09/22 09:48 Metoprolol Succ 50mg Ext Rel Tab PO 07/07/22 08:59 50 mg QAM RICKY Administration Metoprolol Tartrate 5 mg 06/06/22 23:39 06/09/22 04:24 Metoprolol Tartrate 1 Mg/Ml Vial IV 07/06/22 23:38 5 mg Q5M PRN Administration Tachycardia Multivitamins 1 tab 06/07/22 09:00 06/09/22 09:52 Multivitamin Tab PO 07/07/22 08:59 1 tab QAM RICKY Administration Ondansetron HCl 4 mg 06/07/22 01:53 06/09/22 09:48 Ondansetron Inj 2 Mg/Ml 2 Ml Vial IV 07/07/22 01:52 4 mg Q6H PRN Administration Nausea And Vomiting Pregabalin 75 mg 06/07/22 00:34 06/09/22 09:53 Pregabalin 75 Mg Cap PO 07/07/22 00:33 75 mg BID RICKY Administration Ropinirole HCl 4 mg 06/07/22 21:00 06/08/22 21:04 Ropinirole Hcl 2 Mg Tablet PO 07/07/22 20:59 4 mg HS RICKY Administration Sertraline HCl 25 mg 06/07/22 21:00 06/08/22 21:04 Sertraline Hcl 50 Mg Tablet PO 07/07/22 20:59 25 mg HS RICKY Administration Zolpidem Tartrate 10 mg 06/07/22 00:34 06/08/22 21:04 Zolpidem Tartrate 10 Mg Tab PO 07/07/22 00:33 10 mg HS PRN Administration Sleep NPO Date Last Intake of Fluids: 06/08/22 Time Last Intake of Fluids: 21:15 Last Intake of Fluids Comment: clear liquid diet Date Last Intake of Solids: 06/06/22 Past Medical History Medical History Acidosis, lactic Acute dehydration 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 No issues per anesthesia postop progress note. Anemia Cellulitis Chronic back pain Chronic pain syndrome Costochondritis COVID-19 Depression Diabetes mellitus type 2, uncontrolled Diabetic peripheral neuropathy Diastolic CHF DM2 (diabetes mellitus, type 2) IDDM, A1c 07/2021-11% Gastritis Gastroenteritis GIB (gastrointestinal bleeding) History of amputation of great toe HTN (hypertension) Hyperlipidemia Hyponatremia Infection of left great toe due to methicillin resistant Staphylococcus aureus (MRSA) Insomnia Insulin dependent diabetes mellitus Iron deficiency anemia Nonobstructive atherosclerosis of coronary artery Numbness of lower extremity Opiate abuse, continuous Opiate dependence Opioid dependence Osteomyelitis of great toe of left foot Peripheral neuropathy Right second toe ulcer Seizures Sepsis Past Family History Family History Mother , age 63 Myocardial infarction Father , age 68 or 69 Myocardial infarction Brother S/P CABG (coronary artery bypass graft) Sister Myocardial infarction x 3; she is 57yo Past Surgical History Surgical History History of esophagogastroduodenoscopy (EGD) History of right below knee amputation (12/22/21) Right Below Knee Amputation(Right) - Davon Good MD, FACS Social History Smoking Status: Current some day smoker tobacco type: cigarettes Smoking cigarettes per day: 20 Hx Alcohol Use: No Hx Substance Use: Yes substance use type: marijuana Substance Use Type Other:: medical marijuana Review of Systems Constitutional: as per Subjective / HPI Eyes: as per Subjective / HPI Ear, Nose, Mouth, Throat: + dental caries Respiratory: + wheezing Cardiovascular: as per Subjective / HPI Gastrointestinal: as per Subjective / HPI Genitourinary (Female): as per Subjective / HPI Musculoskeletal: + problem reported (osteomyelitis) Integumentary: + problem reported (foot infection) Neurologic: + seizure-like activity Psychiatric: + anxiety and + substance abuse Endocrine: as per Subjective / HPI Hematologic / Lymphatic: as per Subjective / HPI Allergy / Immunological: as per Subjective / HPI Physical Exam Vital Signs Last Vital Signs Temp 37.5 C 06/09/22 11:38 Pulse 82 06/09/22 11:38 Resp 20 06/09/22 11:38 BP 182/83 H 06/09/22 11:38 Pulse Ox 97 06/09/22 11:38 O2 Del Method 06/09/22 11:38 ENMT Mouth: + poor dentition (missing teeth); no TMJ abnormality Thyromental Distance: > or= 3.5 Finger Breadths Mallampati Class: II Neck normal visual inspection Respiratory normal respiratory effort and + audible wheezes Auscultation: + wheezes Cardiovascular Rate/Rhythm: regular rate and regular rhythm Musculoskeletal Spine: normal cervical ROM Extremities: extremities normal to inspection bruising Skin + lesion bruising Neurologic moves all extremities Psychiatric Orientation: alert and oriented x 3 Testing Laboratory Results 06/09/22 06:49 06/09/22 06:49 Urine Color Yellow 06/06/22 19:00 Urine Appearance Clear (Clear) 06/06/22 19:00 Urine pH 7.0 (4.5-7.5) 06/06/22 19:00 Ur Specific [place] 1.011 (1.000-1.030) 06/06/22 19:00 Urine Protein Negative (Negative) 06/06/22 19:00 Urine Glucose (UA) Negative (Negative) 06/06/22 19:00 Urine Ketones Negative (Negative) 06/06/22 19:00 Urine Nitrite Negative (Negative) 06/06/22 19:00 Ur Leukocyte Esterase Negative (Negative) 06/06/22 19:00 06/09/22 06:01 POC Glucose 152 H
[2022-06-09] MEDS ORDERED: LIDOCAINE 1% LOCAL 20 ML VIAL INJ ONE (12:28)
--- NOTE | 2022-06-09 12:36 | Hospitalist Progress Note ---
Date of Service June 09, 2022 Assessment & Plan (1) Cellulitis of left foot: Plan: Cellulitis of left great toe/recent osteomyelitis/history of MRSA- Initially on ceftriaxone 2 g IV and doxycycline 100 mg IV twice daily However, MRI foot showed evidence of osteitis and possible osteomyelitis, and coupled with worsening leucocytosis, we switched abx to vancomycin (hx of frankie syndrome, will administer very slowly) WBC is now trending down, patient clinically much improved Acetaminophen 650 mg NPO every 6 hours. Mild pain or fever Oxycodone/acetaminophen 5/325, 1 p.o. every 4 hours as needed moderate pain Dilaudid 1 mg IV every 6 hours as needed severe pain Will need antibiotics for 4-6 weeks (2) Diabetes mellitus type 2, uncontrolled: Plan: Continue Lantus insulin 20 units subcu at bedtime Hold standing orders of lispro 3 times daily Placed on Accu-Cheks before meals and at bedtime with NovoLog coverage per scale (3) Nausea: Plan: Improving could be due to gastroparesis from Diabetes Zofran PRN (4) MRSA (methicillin resistant staph aureus) culture positive: (5) PAD (peripheral artery disease): Plan: Continue aspirin and clopidogrel (6) Anxiety: Plan: Anxiety/depression continue hydroxyzine, lorazepam, sertraline and zolpidem (7) Depression: (8) Diabetic peripheral neuropathy: Plan: Continue pregabalin and ropinirole (9) Chronic pain syndrome: Plan: As above Plan Patient will require senior living antibiotics, will obtain a Rivas line today by vascular surgery case mgt for d/c plans Admission and Anticipated Discharge Date Admission Date: June 06, 2022 Subjective patient seen and examined, nausea has resolved Review of Systems Review of Systems: All systems reviewed are negative, apart from the ones contained in the history. Physical Exam Physical Exam: The patient is awake, alert and oriented 3, well developed and well nourished, normocephalic and atraumatic, lying in bed and in no acute distress. HEENT--PERRL, EOMI, mucous membranes and oropharynx mildly dry Neck--supple. No JVD. No bruits. Thyroid normal, trachea midline, no adenopathy. Heart--normal S1 and S2. No murmurs, rubs or gallops. Lungs--clear bilaterally, no respiratory distress, no accessory muscle use. Abdomen--normal bowel sounds and soft. Mild epigastric and left sided abdominal pain Extremities--RBKA, left big toe cellulitis Dermatologic--normal skin turgor, normal color, no abnormal lymph nodes, no rash. Neurologic--cranial nerves II through XII grossly intact. Rheumatologic--normal range of motion. Psychiatric--normal affect. Results & Data Results & Data ([facility]) Vital Signs (Past 12 Hours) Vital Signs Temp Pulse Pulse Resp BP BP Pulse Ox 06/09/22 08:00 84 06/09/22 11:38 99.5 F 82 20 182/83 H 97 06/09/22 08:00 98.6 F 75 20 158/74 H 97 06/09/22 04:24 91 H 166/78 H 06/09/22 03:34 97.2 F L 89 20 166/78 H 93 O2 Del Method 06/09/22 08:00 06/09/22 11:38 Room Air 06/09/22 08:00 06/09/22 04:24 06/09/22 03:34 Room Air PG Care Time/CCT Total # of Minutes Spent Total Time Spent with Patient: Total time spent is greater than 50% in coordination of care (as documented) at patient's floor/unit and/or counseling patient: Coding Level of Care Code 32520 Subseq Hosp Care Lvl 2 Diagnoses Cellulitis of left foot L03.116 Diabetes mellitus type 2, uncontrolled E11.65 Nausea R11.0 MRSA (methicillin resistant staph aureus) culture positive Z22.322 PAD (peripheral artery disease) I73.9 Anxiety F41.9 Depression F32.9 Diabetic peripheral neuropathy E11.42 Chronic pain syndrome G89.4 Time Spent (min) 35
--- NOTE | 2022-06-09 12:39 | Operative Report ---
Post Operative Report Pre & Post Diagnosis Operation Date: 06/09/22 07:00 Preop diagnosis: Lack of venous access Postop diagnosis: Lack of venous access I identified the patient and participated in the time-out.: Yes Procedure Operation Date: 06/09/22 07:00 Actual Procedures p Rivas Catheter Insertion,Right Jugular Approach, Ultrasound Localization of Right Internal Jugular Vein,Fluoroscopy for Positioning(Right) - Lavon Fuentes MD Surgeon Lavon Fuentes MD [place] None Estimated Blood Loss 3 Findings Consistent with Post-Op Diagnosis Specimens None Anesthesia Type MAC Complications none Disposition Accompanied Patient To Recovery: No Disposition: Recovery Room Indications This is a 57-year-old female who has MRSA infection of her left great toe with early osteo-. She has poor venous access for long-term antibiotics. Rivas catheter was recommended. I have discussed the risks options and benefits of the procedure with the patient. The patient understands the risks options and benefits and agrees to the procedure. Description of Procedure Patient was taken to the angio suite and placed in the supine position. The right side of the neck and chest wall were prepped and draped in a sterile manner. The patient was identified and a timeout performed. Local anesthesia was then administered to the appropriate areas of the neck and chest wall. Ultrasound was then used to locate the right internal jugular vein. The vein compressed easily, had no filing defects, and was patent. The vein was then punctured under direct ultrasound imaging. A guidewire was then passed centrally under fluoroscopic imaging. A stab wound was then made in the anterior chest wall and Rivas catheter was passed from the stab wound on the chest wall to the puncture site on the neck. The puncture site was then dilated till the peel away sheath was inserted. The Rivas was then trimmed to the appropriate length and then inserted through the sheath to a central position in the distal superior vena cava. The peel away sheath was then removed. The catheter was then sutured in place using nylon sutures. The puncture was then closed using a 4-0 Vicryl subcuticular suture. The Rivas port aspirated and flushed easily and was then packed with heparin. A sterile dressing was applied to the catheter and the wound. The patient left the operation room in satisfactory condition and tolerated the procedure well. All needle and sponge counts were correct at the end of the procedure. I attest to the content of the Intraoperative Record and any orders documented therein. Any exceptions are noted below.
[2022-06-09] MEDS: CLOPIDOGREL BISULFATE 75 MG TAB PO SCH (13:49)
[2022-06-09] MEDS: ASPIRIN 81 MG ECTAB PO SCH (13:49)
--- NOTE | 2022-06-09 15:22 | Anesthesiology Progress Note ---
Date of Service June 09, 2022 Anesthesia Post Procedure Vital Signs Vital Signs: Temp Pulse Pulse Resp BP BP BP 06/09/22 15:15 36.9 C 74 18 169/72 H 06/09/22 14:10 36.9 C 76 18 177/81 H 06/09/22 13:40 36.9 C 73 18 129/53 L 06/09/22 13:10 36.5 C 74 18 132/70 06/09/22 13:15 36.2 C L 72 19 136/70 06/09/22 13:05 71 22 134/67 06/09/22 12:55 72 22 123/67 06/09/22 12:47 36.0 C L 72 19 103/56 L 06/09/22 08:00 84 06/09/22 11:38 37.5 C 82 20 182/83 H 06/09/22 08:00 37.0 C 75 20 158/74 H 06/09/22 04:24 91 H 166/78 H 06/09/22 03:34 36.2 C L 89 20 166/78 H 06/08/22 23:00 87 06/08/22 23:50 37.1 C 91 H 18 156/77 H 06/08/22 21:16 36.9 C 91 H 18 135/72 06/08/22 15:42 37.1 C 90 18 131/80 Pulse Ox O2 Del Method O2 Flow Rate 06/09/22 15:15 97 06/09/22 14:10 96 Nasal Cannula 2 06/09/22 13:40 95 Nasal Cannula 2 06/09/22 13:10 93 Nasal Cannula 2 06/09/22 13:15 94 Nasal Cannula 2 06/09/22 13:05 94 Nasal Cannula 2 06/09/22 12:55 93 Nasal Cannula 2 06/09/22 12:47 89 L Room Air 06/09/22 08:00 06/09/22 11:38 97 Room Air 06/09/22 08:00 97 06/09/22 04:24 06/09/22 03:34 93 Room Air 06/08/22 23:00 06/08/22 23:50 91 Room Air 06/08/22 21:16 94 Room Air 06/08/22 15:42 95 Room Air Pain Intensity Left Toe: Pain Intensity: 8 Transfer of Care Handoff Completed per policy Notes Mental Status: alert / awake / arousable and participated in evaluation Patient Amnestic to Procedure: Yes Nausea / Vomiting: adequately controlled Pain: adequately controlled Airway Patency, RR, SpO2: stable & adequate BP & HR: stable & adequate Hydration State: stable & adequate Anesthetic Complications: no major complications apparent and Pt Satisfied with anesthetic care
[2022-06-09] MEDS: LORazepam 1 MG TAB PO PRN (16:17)
[2022-06-09] MEDS: oxyCODONE/ACETAMINOPHEN 10-325 TAB PO PRN (18:17)
[2022-06-09] MEDS: LANTUS PER UNIT CHARGE SQ SCH (19:53)
[2022-06-09] MEDS: SERTRALINE HCL 50 MG TABLET PO SCH (20:00)
[2022-06-09] MEDS: ZOLPIDEM TARTRATE 10 MG TAB PO PRN (20:00)
[2022-06-09] MEDS: rOPINIRole HCL 2 MG TABLET PO SCH (20:00)
[2022-06-10] MEDS: HYDROmorphone INJ 0.5 MG/0.5 ML SYR IV PRN ×8 (02:34→23:39)
[2022-06-10] MEDS: ONDANSETRON INJ 2 MG/ML 2 ML VIAL IV PRN ×4 (02:38→21:18)
[2022-06-10] MEDS: METOPROLOL TARTRATE 1 MG/ML VIAL IV PRN ×4 (02:50→22:02)
[2022-06-10] MEDS: PROMETHAZINE HCL 12.5 MG in SODIUM CHLORIDE 0.9% 50 ML IV PRN (06:04)
[2022-06-10 06:43] LABS: Hematocrit (blood only) 34.6 % (34.1-44.9); Hemoglobin 11.4 g/dl (12.0-16.0); Mean Corpuscular Hemoglobin 26.6 pg (25.0-34.0); Mean Corpuscular Hgb Conc 32.9 g/dL (32.0-36.0); Mean Corpuscular Volume 80.8 fL (80.0-100.0); Mean Platelet Volume 9.8 fL (9.4-12.3); Platelet Count 239 K/uL (130-400); RDW Coefficient of Variation 16.2 % (11.5-14.5); RDW Standard Deviation 47.9 fL (36.4-46.3); Red Blood Count 4.28 M/uL (3.93-5.22); White Blood Count 10.29 K/ul (4.8-10.8)
[2022-06-10 07:04] LABS: C Reactive Protein < 0.50 mg/dl (0-0.5); Creatinine Clr Calc Pharmacy 122.8 ml/min; Est GFR (African American) 127.1 ml/min; Est GFR (Non-African American) 109.7 ml/min
[2022-06-10] MEDS ORDERED: VANCOMYCIN LEVEL ONE (07:30)
[2022-06-10] MEDS: INSULIN ASPART PER UNIT SC SCH ×4 (08:07→21:10)
[2022-06-10] MEDS: VANCOMYCIN HCL 1,250 MG in SODIUM CHLORIDE 0.9% 250 ML IV SCH (08:16)
[2022-06-10] MEDS: ASPIRIN 81 MG ECTAB PO SCH (08:17)
[2022-06-10] MEDS: CLOPIDOGREL BISULFATE 75 MG TAB PO SCH (08:17)
[2022-06-10] MEDS: MULTIVITAMIN TAB PO SCH (08:17)
[2022-06-10] MEDS: hydrOXYzine HCl 25 MG TAB PO SCH (08:17)
[2022-06-10] MEDS: ENOXAPARIN INJ 40 MG/0.4 ML SYR SQ SCH (08:17)
[2022-06-10] MEDS: METOPROLOL SUCC 50MG EXT REL TAB PO SCH (08:17)
[2022-06-10] MEDS: PANTOprazole 40 MG in SYRINGE 0 ML IV SCH ×2 (08:19→20:40)
[2022-06-10] MEDS: PREGABALIN 75 MG CAP PO SCH ×2 (08:19→20:40)
--- NOTE | 2022-06-10 09:46 | Pharmacy Report ---
Pharmacy PK ABX Note - Date of Service June 10, 2022 - Assessment and Plan Assessment 57 year old F previously receiving doxycycline and ceftriaxone, now ordered vancomycin for treatment of left foot cellulitis, osteitis, and possible early osteomyelitis. Patient well-known to pharmacy PK service with extensive history of MRSA infections. Rivas inserted yesterday. Day #3 of antimicrobial therapy. Plan Vancomycin * Current regimen: 1250 mg IV every 8 hours * Random level obtained 06/10/22 resulted as 16.5 mcg/mL. This is predicted to achieve target AUC/CELSO of 400-600 mg/L.hr * Predicted AUC at steady state: 533 mg/L.hr * Continue to 1250 mg IV every 8 hours * Repeat random level ordered for: 06/12/22 Pharmacy will continue to follow and will adjust dose/frequency as necessary. Thank you. Pharmacy has transitioned to AUC monitoring for vancomycin. AUC/CELSO is the preferred PK/PD target and is associated with decreased risk of nephrotoxicity compared to traditional trough targets.
--- NOTE | 2022-06-10 12:29 | Hospitalist Progress Note ---
Date of Service June 10, 2022 Assessment & Plan (1) Cellulitis of left foot: Plan: Cellulitis of left great toe/recent osteomyelitis/history of MRSA- Initially on ceftriaxone 2 g IV and doxycycline 100 mg IV twice daily However, MRI foot showed evidence of osteitis and possible osteomyelitis, and coupled with worsening leucocytosis, we switched abx to vancomycin (hx of frankie syndrome, will administer very slowly) WBC is now trending down, patient clinically much improved Acetaminophen 650 mg NPO every 6 hours. Mild pain or fever Oxycodone/acetaminophen 5/325, 1 p.o. every 4 hours as needed moderate pain Dilaudid 1 mg IV every 6 hours as needed severe pain Will need antibiotics for 4 weeks (2) Diabetes mellitus type 2, uncontrolled: Plan: Continue Lantus insulin 20 units subcu at bedtime Hold standing orders of lispro 3 times daily Placed on Accu-Cheks before meals and at bedtime with NovoLog coverage per scale (3) Nausea: Plan: Improving could be due to gastroparesis from Diabetes Zofran PRN (4) MRSA (methicillin resistant staph aureus) culture positive: (5) PAD (peripheral artery disease): Plan: Continue aspirin and clopidogrel (6) Anxiety: Plan: Anxiety/depression continue hydroxyzine, lorazepam, sertraline and zolpidem (7) Depression: (8) Diabetic peripheral neuropathy: Plan: Continue pregabalin and ropinirole (9) Chronic pain syndrome: Plan: As above Plan Patient will require penitentiary antibiotics, already has [facility] line [facility] D/C on Sunday Admission and Anticipated Discharge Date Admission Date: June 06, 2022 Subjective patient seen and examined, nausea has resolved, but complains of poor appetite Review of Systems Review of Systems: All systems reviewed are negative, apart from the ones contained in the history. Physical Exam Physical Exam: The patient is awake, alert and oriented 3, well developed and well nourished, normocephalic and atraumatic, lying in bed and in no acute distress. HEENT--PERRL, EOMI, mucous membranes and oropharynx mildly dry Neck--supple. No JVD. No bruits. Thyroid normal, trachea midline, no adenopathy. Heart--normal S1 and S2. No murmurs, rubs or gallops. Lungs--clear bilaterally, no respiratory distress, no accessory muscle use. Abdomen--normal bowel sounds and soft. Mild epigastric and left sided abdominal pain Extremities--RBKA, left big toe cellulitis Dermatologic--normal skin turgor, normal color, no abnormal lymph nodes, no rash. Neurologic--cranial nerves II through XII grossly intact. Rheumatologic--normal range of motion. Psychiatric--normal affect. Results & Data Results & Data ([facility]) Vital Signs (Past 12 Hours) Vital Signs Temp Pulse Pulse Resp BP BP Pulse Ox 06/10/22 11:30 98.1 F 88 18 121/73 97 06/10/22 08:00 71 06/10/22 08:00 98.2 F 83 20 159/68 H 97 06/10/22 03:10 98.6 F 18 94 06/10/22 02:50 75 173/89 H O2 Del Method 06/10/22 11:30 06/10/22 08:00 06/10/22 08:00 06/10/22 03:10 Room Air 06/10/22 02:50 PG Care Time/CCT Total # of Minutes Spent Total Time Spent with Patient: Total time spent is greater than 50% in coordination of care (as documented) at patient's floor/unit and/or counseling patient: Coding Level of Care Code 00962 Subseq Hosp Care Lvl 2 Diagnoses Cellulitis of left foot L03.116 Diabetes mellitus type 2, uncontrolled E11.65 Nausea R11.0 MRSA (methicillin resistant staph aureus) culture positive Z22.322 PAD (peripheral artery disease) I73.9 Anxiety F41.9 Depression F32.9 Diabetic peripheral neuropathy E11.42 Chronic pain syndrome G89.4 Time Spent (min) 35
[2022-06-10] MEDS: oxyCODONE/ACETAMINOPHEN 10-325 TAB PO PRN (19:40)
[2022-06-10] MEDS: ZOLPIDEM TARTRATE 10 MG TAB PO PRN (20:40)
[2022-06-10] MEDS: rOPINIRole HCL 2 MG TABLET PO SCH (20:42)
[2022-06-10] MEDS: SERTRALINE HCL 50 MG TABLET PO SCH (20:42)
[2022-06-10] MEDS: VANCOMYCIN HCL 1,750 MG in SODIUM CHLORIDE 0.9% 500 ML IV SCH (20:42)
[2022-06-10] MEDS ORDERED: VANCOMYCIN HCL 1,000 MG in SODIUM CHLORIDE 0.9% 250 ML IV SCH (21:00)
[2022-06-10] MEDS: LANTUS PER UNIT CHARGE SQ SCH (21:10)
[2022-06-11] MEDS: METOPROLOL TARTRATE 1 MG/ML VIAL IV PRN ×5 (00:57→20:48)
[2022-06-11] MEDS: HYDROmorphone INJ 0.5 MG/0.5 ML SYR IV PRN ×7 (02:25→21:32)
[2022-06-11] MEDS: ONDANSETRON INJ 2 MG/ML 2 ML VIAL IV PRN ×2 (05:42→17:37)
[2022-06-11] MEDS: LORazepam 1 MG TAB PO PRN ×3 (05:45→20:46)
[2022-06-11] MEDS ORDERED: hydrALAZINE HCL 20 MG/ML VIAL IV ONE (05:49)
[2022-06-11 06:42] LABS: Hematocrit (blood only) 35.5 % (34.1-44.9); Hemoglobin 11.7 g/dl (12.0-16.0); Mean Corpuscular Hemoglobin 26.7 pg (25.0-34.0); Mean Corpuscular Volume 81.1 fL (80.0-100.0); Mean Platelet Volume 9.7 fL (9.4-12.3); Platelet Count 253 K/uL (130-400); RDW Coefficient of Variation 15.8 % (11.5-14.5); RDW Standard Deviation 46.8 fL (36.4-46.3); Red Blood Count 4.38 M/uL (3.93-5.22); White Blood Count 9.35 K/ul (4.8-10.8)
[2022-06-11 07:08] LABS: BUN Creatinine Ratio 21.1 (10-20); Calcium 8.7 mg/dl (8.5-10.1); Creatinine Clr Calc Pharmacy 150.7 ml/min; Est GFR (African American) 135.3 ml/min; Est GFR (Non-African American) 116.8 ml/min; Potassium 3.7 mmol/L (3.5-5.1)
[2022-06-11] MEDS: VANCOMYCIN HCL 1,750 MG in SODIUM CHLORIDE 0.9% 500 ML IV SCH ×2 (08:09→20:19)
[2022-06-11] MEDS: ASPIRIN 81 MG ECTAB PO SCH (08:13)
[2022-06-11] MEDS: CLOPIDOGREL BISULFATE 75 MG TAB PO SCH (08:13)
[2022-06-11] MEDS: MULTIVITAMIN TAB PO SCH (08:13)
[2022-06-11] MEDS: METOPROLOL SUCC 50MG EXT REL TAB PO SCH (08:13)
[2022-06-11] MEDS: hydrOXYzine HCl 25 MG TAB PO SCH (08:14)
[2022-06-11] MEDS: ENOXAPARIN INJ 40 MG/0.4 ML SYR SQ SCH (08:14)
[2022-06-11] MEDS: INSULIN ASPART PER UNIT SC SCH ×4 (08:17→20:20)
[2022-06-11] MEDS: PREGABALIN 75 MG CAP PO SCH ×2 (08:19→20:18)
[2022-06-11] MEDS: PANTOprazole 40 MG in SYRINGE 0 ML IV SCH ×2 (08:19→20:47)
[2022-06-11] MEDS ORDERED: amLODIPine BESYLATE 5 MG TAB PO ONE (10:59)
--- NOTE | 2022-06-11 12:53 | Hospitalist Progress Note ---
Date of Service June 11, 2022 Assessment & Plan (1) Cellulitis of left foot: Plan: Cellulitis of left great toe/recent osteomyelitis/history of MRSA- Initially on ceftriaxone 2 g IV and doxycycline 100 mg IV twice daily However, MRI foot showed evidence of osteitis and possible osteomyelitis, and coupled with worsening leucocytosis, we switched abx to vancomycin (hx of frankie syndrome, will administer very slowly) WBC is now trending down, patient clinically much improved, however, theres still some bleeding on the big toe. will consult podiatry Acetaminophen 650 mg NPO every 6 hours. Mild pain or fever Oxycodone/acetaminophen 5/325, 1 p.o. every 4 hours as needed moderate pain Dilaudid 1 mg IV every 6 hours as needed severe pain Will need antibiotics for 4 weeks (2) Diabetes mellitus type 2, uncontrolled: Plan: Continue Lantus insulin 20 units subcu at bedtime Hold standing orders of lispro 3 times daily Placed on Accu-Cheks before meals and at bedtime with NovoLog coverage per scale (3) Nausea: Plan: Improving could be due to gastroparesis from Diabetes Zofran PRN (4) MRSA (methicillin resistant staph aureus) culture positive: (5) PAD (peripheral artery disease): Plan: Continue aspirin and clopidogrel (6) Anxiety: Plan: Anxiety/depression continue hydroxyzine, lorazepam, sertraline and zolpidem (7) Depression: (8) Diabetic peripheral neuropathy: Plan: Continue pregabalin and ropinirole (9) Chronic pain syndrome: Plan: As above Plan Patient will require terminal worker antibiotics, already has [facility] line and [facility] D/C on Sunday Admission and Anticipated Discharge Date Admission Date: June 06, 2022 Subjective patient seen and examined, nausea has resolved, but complains of poor appetite and still bleeding left big toe Review of Systems Review of Systems: All systems reviewed are negative, apart from the ones contained in the history. Physical Exam Physical Exam: The patient is awake, alert and oriented 3, well developed and well nourished, normocephalic and atraumatic, lying in bed and in no acute distress. HEENT--PERRL, EOMI, mucous membranes and oropharynx mildly dry Neck--supple. No JVD. No bruits. Thyroid normal, trachea midline, no adenopathy. Heart--normal S1 and S2. No murmurs, rubs or gallops. Lungs--clear bilaterally, no respiratory distress, no accessory muscle use. Abdomen--normal bowel sounds and soft. Mild epigastric and left sided abdominal pain Extremities--RBKA, left big toe cellulitis Dermatologic--normal skin turgor, normal color, no abnormal lymph nodes, no rash. Neurologic--cranial nerves II through XII grossly intact. Rheumatologic--normal range of motion. Psychiatric--normal affect. Results & Data Results & Data ([facility]) Vital Signs (Past 12 Hours) Vital Signs Temp Pulse Pulse Resp BP BP Pulse Ox 06/11/22 08:00 66 06/11/22 08:13 74 175/79 H 06/11/22 05:31 188/99 H 06/11/22 03:02 97.7 F 78 18 172/75 H 94 06/11/22 02:22 198/85 H 06/11/22 02:24 78 198/85 H 06/11/22 00:57 86 181/77 H 06/11/22 00:55 181/77 H O2 Del Method 06/11/22 08:00 06/11/22 08:13 06/11/22 05:31 06/11/22 03:02 Room Air 06/11/22 02:22 06/11/22 02:24 06/11/22 00:57 06/11/22 00:55 PG Care Time/CCT Total # of Minutes Spent Total Time Spent with Patient: Total time spent is greater than 50% in coordination of care (as documented) at patient's floor/unit and/or counseling patient: Coding Level of Care Code 30372 Subseq Hosp Care Lvl 2 Diagnoses Cellulitis of left foot L03.116 Diabetes mellitus type 2, uncontrolled E11.65 Nausea R11.0 MRSA (methicillin resistant staph aureus) culture positive Z22.322 PAD (peripheral artery disease) I73.9 Anxiety F41.9 Depression F32.9 Diabetic peripheral neuropathy E11.42 Chronic pain syndrome G89.4 Time Spent (min) 35
--- NOTE | 2022-06-11 19:46 | Orthopedic Consultation ---
Date of Consultation June 11, 2022 Assessment & Plan (1) Ulcer of left great toe due to diabetes mellitus: Patient seen, evaluated, and treated. Patient is requesting amputation due to possible osteomyelitis of left distal phalanx of great toe. We did discuss this at length. I reminded Patient of the sensitivity of MRI and clinically toe no longer appears erythematous. Ultimately this is her choice however I do not currently recommend. I will review this again with Patient on 06/12 and answer any questions. Patient does seem to decline other conservative care treatments such as use of Diabetic shoes with custom molded orthotics and use of total contact casting. I will continue to follow while in house. Thank you for allowing me to participate in the care of this Patient. (2) Diabetes mellitus type 2, uncontrolled: (3) Cellulitis: (4) Cellulitis of left foot: (5) Diabetic foot ulcer: History of Present Illness Attending Physician: Dina Yarbrough MD History of Present Illness Patient is a 57 year old female who is seen at bedside for chronic left hallux ulcer with MRSA history. Patient has had previous admissions due to left hallux wound. She has history of Right BKA and shows concern for loss of left foot. Her past medical history includes chronic pain syndrome, anxiety and depression, insomnia, gastroparesis, vitamin D deficiency, esophagitis, right second toe ulcer, PAD, osteomyelitis of great right toe, MRSA positive, status post AKA right lower extremity, diabetic peripheral neuropathy, nonobstructive CAD and chronic back pain. Allergies Allergy/AdvReac Type Severity Reaction Status Date / Time morphine Allergy Severe blisters Verified 06/06/22 21:09 in mouth Sulfa (Sulfonamide Allergy Severe rash/swelli Verified 06/06/22 21:09 Antibiotics) ng iron [From Venofer] Allergy Intermediate Hypertensio Verified 06/06/22 21:09 n vancomycin Allergy Intermediate YULIYA Verified 06/06/22 21:09 SYNDROME---CAN TAKE IF VERY SLOW DRIP. amoxicillin [From Augmentin] Allergy Mild itching/power Verified 06/06/22 21:09 h clavulanic acid Allergy Mild itching/power Verified 06/06/22 21:09 [From Augmentin] h dermabond AdvReac excoriates Uncoded 06/06/22 21:09 skin Home Medications Medication Instructions Recorded Confirmed Type ropinirole 2 mg tablet 4 mg PO HS 10/19/20 06/06/22 History metoprolol succinate 50 mg 50 mg PO QAM 03/05/21 06/06/22 History tablet,extended release 24 hr (Toprol XL) lorazepam 1 mg tablet (Ativan) 1 mg PO TID PRN Anxiety 11/04/21 06/06/22 History cyclobenzaprine 10 mg tablet 10 mg PO BID PRN Muscle Spasm 11/24/21 06/06/22 History insulin glargine 100 unit/mL (3 20 unit subcut HS 03/08/22 06/06/22 History mL) subcutaneous pen (Lantus Solostar U-100 Insulin) insulin lispro 100 unit/mL 5 unit subcut TIDM 03/08/22 06/06/22 History subcutaneous pen ondansetron 8 mg disintegrating 8 mg translingual TID PRN Nausea 03/08/22 06/06/22 History tablet zolpidem 10 mg tablet 10 mg PO HS PRN Sleep 03/08/22 06/06/22 History clopidogrel 75 mg tablet 75 mg PO QAM #30 tabs 03/30/22 06/06/22 Rx aspirin 81 mg tablet,delayed 81 mg PO DAILY #30 tabs 04/20/22 06/06/22 Rx release (Melissa Low Dose Aspirin) hydroxyzine HCl 25 mg tablet 25 mg PO QAM #90 tabs 04/20/22 06/06/22 Rx multivitamin with folic acid 400 1 tab PO QAM #30 tabs 04/20/22 06/06/22 Rx mcg tablet (Daily-Werner (with folic acid)) sertraline 50 mg tablet 25 mg PO HS #27 tabs 04/20/22 06/06/22 Rx oxycodone-acetaminophen 10 mg-325 1 tab PO Q4H PRN pain #30 tabs 05/09/22 06/06/22 Rx mg tablet (Percocet) pregabalin 75 mg capsule 75 mg PO BID 06/06/22 06/06/22 History Patient History Medical History Acidosis, lactic Acute dehydration 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 No issues per anesthesia postop progress note. Anemia Cellulitis Chronic back pain Chronic pain syndrome Costochondritis COVID-19 Depression Diabetes mellitus type 2, uncontrolled Diabetic peripheral neuropathy Diastolic CHF DM2 (diabetes mellitus, type 2) IDDM, A1c 07/2021-11% Gastritis Gastroenteritis GIB (gastrointestinal bleeding) History of amputation of great toe HTN (hypertension) Hyperlipidemia Hyponatremia Infection of left great toe due to methicillin resistant Staphylococcus aureus (MRSA) Insomnia Insulin dependent diabetes mellitus Iron deficiency anemia Nonobstructive atherosclerosis of coronary artery Numbness of lower extremity Opiate abuse, continuous Opiate dependence Opioid dependence Osteomyelitis of great toe of left foot Peripheral neuropathy Right second toe ulcer Seizures Sepsis Surgical History History of esophagogastroduodenoscopy (EGD) History of right below knee amputation (12/22/21) Right Below Knee Amputation(Right) - Davon Good MD, FACS Family History Mother , age 63 Myocardial infarction Father , age 68 or 69 Myocardial infarction Brother S/P CABG (coronary artery bypass graft) Sister Myocardial infarction x 3; she is 57yo Social History Smoking Status: Current some day smoker Tobacco Type: Cigarettes packs per day: 0.5; Years Smoked: 20; Cigarettes Per Day: 20; Second Hand Exposure: No; Hx Alcohol Use: No Hx Substance Use: Yes Prescribed Medications: Marijuana Substance Use Type Other:: medical marijuana Preferred Language: [place] Communication Ability: Effective Visual Impairment: No Limitations Hearing Ability: Normal Strategic Buyer Required: No Beliefs That Will Affect Care: None marital status: Current Living Situation: Spouse current occupational status: unemployed 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 other: raising a grandchild as well; lives in [place] Feels Safe at Home: Yes Safety Concerns: Feels Safe At This Time during the past year weight has: remained stable Assistive Devices: Prosthesis, Walker and Wheelchair Review of Systems Review of Systems: All systems reviewed & are unremarkable except as noted in HPI & below Physical Exam Constitutional: WD/WN, vitals as above ENMT: external ear and nose normal, oropharynx normal Neck: trachea midline, no thyromegaly Cardiovascular: Pedal pulses palpable left foot. [employer] WNL Skin: Wound base color and depth:Full thickness into subcutaneous tissue Wound size (cm):left hallux distal 1 x 1 x 0.1 cm Odor:no malodor Drainage:minimal serous Undermining:none Borders: Neurologic: Absent epicritic sensation. Results & Data ([facility]) Vital Signs (Past 12 Hours) Vital Signs Temp Pulse Pulse Resp BP BP Pulse Ox 06/11/22 17:49 73 173/74 H 06/11/22 15:15 66 06/11/22 11:30 36.8 C 77 18 169/83 H 95 06/11/22 08:00 66 06/11/22 08:13 74 175/79 H
[2022-06-11] MEDS: LANTUS PER UNIT CHARGE SQ SCH (20:18)
[2022-06-11] MEDS: ZOLPIDEM TARTRATE 10 MG TAB PO PRN (20:46)
[2022-06-11] MEDS: SERTRALINE HCL 50 MG TABLET PO SCH (20:46)
[2022-06-11] MEDS: rOPINIRole HCL 2 MG TABLET PO SCH (20:46)
[2022-06-11] MEDS: oxyCODONE/ACETAMINOPHEN 10-325 TAB PO PRN (21:07)
[2022-06-12] MEDS: METOPROLOL TARTRATE 1 MG/ML VIAL IV PRN ×2 (00:39→05:27)
[2022-06-12] MEDS: ONDANSETRON INJ 2 MG/ML 2 ML VIAL IV PRN ×2 (00:40→22:07)
[2022-06-12] MEDS: HYDROmorphone INJ 0.5 MG/0.5 ML SYR IV PRN ×8 (00:40→22:40)
[2022-06-12 03:06] LABS: Cdiff Antigen Positive; Cdiff Toxin A+B Negative Cdiff Toxin (Negative)
[2022-06-12] MEDS: CYCLOBENZAPRINE HCL 10 MG TAB PO PRN ×2 (03:52→20:49)
[2022-06-12] MEDS: oxyCODONE/ACETAMINOPHEN 10-325 TAB PO PRN ×2 (05:15→20:49)
[2022-06-12 07:16] LABS: Hematocrit (blood only) 34.3 % (34.1-44.9); Hemoglobin 11.4 g/dl (12.0-16.0); Mean Corpuscular Hemoglobin 26.4 pg (25.0-34.0); Mean Corpuscular Hgb Conc 33.2 g/dL (32.0-36.0); Mean Corpuscular Volume 79.4 fL (80.0-100.0); Mean Platelet Volume 10.1 fL (9.4-12.3); Platelet Count 260 K/uL (130-400); RDW Coefficient of Variation 15.9 % (11.5-14.5); Red Blood Count 4.32 M/uL (3.93-5.22); White Blood Count 9.83 K/ul (4.8-10.8)
[2022-06-12] MEDS ORDERED: VANCOMYCIN LEVEL ONE (07:30)
[2022-06-12 08:04] LABS: BUN Creatinine Ratio 20.9 (10-20); Calcium 8.8 mg/dl (8.5-10.1); Creatinine Clr Calc Pharmacy 133.3 ml/min; Est GFR (African American) 129.9 ml/min; Est GFR (Non-African American) 112.1 ml/min; Potassium 3.5 mmol/L (3.5-5.1)
--- NOTE | 2022-06-12 08:35 | Pharmacy Report ---
Pharmacy Vanc AUC Short Note - Date of Service June 12, 2022 - Assessment & Plan Assessment 57 year old F receiving vancomycin for treatment of SSTI. Day # 5 of antimicrobial therapy. Plan Vancomycin * AUC/CELSO is the preferred PK/PD target for vancomycin * AUC guided dosing is effective and associated with decreased risk of nephrotoxicity compared to traditional trough targets * Trough level of 14.7 mcg/mL is predicted to achieve target AUC/CELSO of 400-600 mg/L.hr and may be associated with a 7 % risk of nephrotoxicity * Continue dose of 1750 mg IV every 12 hours * Random level ordered for: 06/15/22 with AM labs Pharmacy will continue to follow and will adjust dose/frequency as necessary. Thank you.
[2022-06-12] MEDS: INSULIN ASPART PER UNIT SC SCH ×4 (08:36→21:03)
[2022-06-12] MEDS: MULTIVITAMIN TAB PO SCH (08:38)
[2022-06-12] MEDS: CLOPIDOGREL BISULFATE 75 MG TAB PO SCH (08:38)
[2022-06-12] MEDS: ASPIRIN 81 MG ECTAB PO SCH (08:38)
[2022-06-12] MEDS: ENOXAPARIN INJ 40 MG/0.4 ML SYR SQ SCH (08:38)
[2022-06-12] MEDS: METOPROLOL SUCC 50MG EXT REL TAB PO SCH (08:38)
[2022-06-12] MEDS: hydrOXYzine HCl 25 MG TAB PO SCH (08:38)
[2022-06-12] MEDS: amLODIPine BESYLATE 5 MG TAB PO SCH (08:39)
[2022-06-12] MEDS: VANCOMYCIN HCL 1,750 MG in SODIUM CHLORIDE 0.9% 500 ML IV SCH ×2 (09:27→19:36)
[2022-06-12] MEDS: PREGABALIN 75 MG CAP PO SCH ×2 (09:28→20:45)
[2022-06-12] MEDS: PANTOprazole 40 MG in SYRINGE 0 ML IV SCH ×2 (09:30→20:45)
[2022-06-12] MEDS ORDERED: HYDROmorphone HCL 2 MG TAB PO PRN (11:16)
[2022-06-12] MEDS: LORazepam 1 MG TAB PO PRN (12:58)
--- NOTE | 2022-06-12 13:45 | Hospitalist Progress Note ---
Date of Service June 12, 2022 Assessment & Plan (1) Cellulitis of left foot: Plan: Cellulitis of left great toe/recent osteomyelitis/history of MRSA- Initially on ceftriaxone 2 g IV and doxycycline 100 mg IV twice daily However, MRI foot showed evidence of osteitis and possible osteomyelitis, and coupled with worsening leucocytosis, we switched abx to vancomycin (hx of frankie syndrome, will administer very slowly) WBC is now trending down, patient clinically much improved, however, theres still some bleeding on the big toe. will consult podiatry Acetaminophen 650 mg NPO every 6 hours. Mild pain or fever Oxycodone/acetaminophen 5/325, 1 p.o. every 4 hours as needed moderate pain Dilaudid 1 mg IV every 6 hours as needed severe pain Will need antibiotics for 4 weeks Patient insisted that she wants surgical debridement/partial amputation of her toe, although Podiatry does not recommend, but she will be scheduled for OR tomorrow (2) Diabetes mellitus type 2, uncontrolled: Plan: Continue Lantus insulin 20 units subcu at bedtime Hold standing orders of lispro 3 times daily Placed on Accu-Cheks before meals and at bedtime with NovoLog coverage per scale (3) Nausea: Plan: Improving could be due to gastroparesis from Diabetes Zofran PRN (4) MRSA (methicillin resistant staph aureus) culture positive: (5) PAD (peripheral artery disease): Plan: Continue aspirin and clopidogrel (6) Anxiety: Plan: Anxiety/depression continue hydroxyzine, lorazepam, sertraline and zolpidem (7) Depression: (8) Diabetic peripheral neuropathy: Plan: Continue pregabalin and ropinirole (9) Chronic pain syndrome: Plan: As above Plan For OR tomorrow Admission and Anticipated Discharge Date Admission Date: June 06, 2022 Subjective patient seen and examined, became very teary and manipulative today Review of Systems Review of Systems: All systems reviewed are negative, apart from the ones contained in the history. Physical Exam Physical Exam: The patient is awake, alert and oriented 3, well developed and well nourished, normocephalic and atraumatic, lying in bed and in no acute distress. HEENT--PERRL, EOMI, mucous membranes and oropharynx mildly dry Neck--supple. No JVD. No bruits. Thyroid normal, trachea midline, no adenopathy. Heart--normal S1 and S2. No murmurs, rubs or gallops. Lungs--clear bilaterally, no respiratory distress, no accessory muscle use. Abdomen--normal bowel sounds and soft. Mild epigastric and left sided abdominal pain Extremities--RBKA, left big toe cellulitis Dermatologic--normal skin turgor, normal color, no abnormal lymph nodes, no rash. Neurologic--cranial nerves II through XII grossly intact. Rheumatologic--normal range of motion. Psychiatric--normal affect. Results & Data Results & Data ([facility]) Vital Signs (Past 12 Hours) Vital Signs Temp Pulse Pulse Resp BP BP Pulse Ox 06/12/22 08:00 68 06/12/22 11:21 97.9 F 77 20 226/86 H 96 06/12/22 07:32 98.1 F 69 20 159/70 H 91 06/12/22 06:42 139/68 06/12/22 05:27 180/78 H 06/12/22 05:26 180/78 H 06/12/22 03:26 98.1 F 69 18 155/76 H 99 06/12/22 03:25 75 O2 Del Method 06/12/22 08:00 06/12/22 11:21 Room Air 06/12/22 07:32 Room Air 06/12/22 06:42 06/12/22 05:27 06/12/22 05:26 06/12/22 03:26 Room Air 06/12/22 03:25 PG Care Time/CCT Total # of Minutes Spent Total Time Spent with Patient: Total time spent is greater than 50% in coordination of care (as documented) at patient's floor/unit and/or counseling patient: Coding Level of Care Code 18480 Subseq Hosp Care Lvl 2 Diagnoses Cellulitis of left foot L03.116 Diabetes mellitus type 2, uncontrolled E11.65 Nausea R11.0 MRSA (methicillin resistant staph aureus) culture positive Z22.322 PAD (peripheral artery disease) I73.9 Anxiety F41.9 Depression F32.9 Diabetic peripheral neuropathy E11.42 Chronic pain syndrome G89.4 Time Spent (min) 35
--- NOTE | 2022-06-12 19:36 | Orthopedic Progress Note ---
Date of Service June 12, 2022 Assessment & Plan (1) Ulcer of left great toe due to diabetes mellitus: Plan: Patient seen, evaluated, and treated. Patient is requesting amputation due to possible osteomyelitis of left distal phalanx of great toe. I again had a lengthy discussion with Patient about appropriateness of surgical care. I have made it clear that I would not recommend amputation based on the then need to heal her amputation site. Also her labs are trending positively. She is in strong viewpoint her toe should be amputated and requests surgical care. Patient is declining further conservative care regardless of risks. I reviewed procedure in detail as well as postoperative recovery. I reviewed managed expectations and possible unwanted outcomes. I have discussed procedure in detail as well as postoperative recovery. All potential risks, benefits, complications, alternatives, rehab, potential for incomplete relief of symptoms, need for further surgery, DVT, PE, , persistent pain, swelling, scarring, weakness, neurovascular, wound complications and potential for amputations were discussed with patient. Unwanted outcomes such as, but not limited to were reviewed including under correction, overcorrection, return of deformity, infection. All questions were answered. Patient has decided to proceed with procedure as indicated. Patient procedure is scheduled for 06/13/22, 3:30pm. Thank you for allowing me to participate in the care of this Patient. (2) Diabetes mellitus type 2, uncontrolled: (3) Cellulitis: (4) Cellulitis of left foot: (5) Diabetic foot ulcer: Admission and Anticipated Discharge Date Admission Date: June 06, 2022 Subjective Patient seen at bedside. She voiced strong preference for left hallux amputation. She also requested stronger pain medication. Review of Systems Review of Systems: All systems reviewed & are unremarkable except as noted in HPI & below Physical Exam Constitutional: WD/WN, vitals as above ENMT: external ear and nose normal, oropharynx normal Neck: trachea midline, no thyromegaly Cardiovascular: Left pedal pulses palpable. Skin: Left hallux non healing ulcer. No erythema. No signs of infection. Minimal ecchymosis on medial ankle consistent with contusion. Neurologic: Absent epicritic sensation Psychiatric: A+Ox3, euthymic affect Results & Data ([facility]) Vital Signs (Past 12 Hours) Vital Signs Temp Pulse Pulse Resp BP Pulse Ox O2 Del Method 06/12/22 15:00 65 06/12/22 15:27 36.9 C 64 17 193/69 H 96 Room Air 06/12/22 08:00 68 06/12/22 11:21 36.6 C 77 20 226/86 H 96 Room Air 06/12/22 07:32 36.7 C 69 20 159/70 H 91 Room Air
[2022-06-12] MEDS: SERTRALINE HCL 50 MG TABLET PO SCH (20:44)
[2022-06-12] MEDS: rOPINIRole HCL 2 MG TABLET PO SCH (20:44)
[2022-06-12] MEDS: ZOLPIDEM TARTRATE 10 MG TAB PO PRN (21:25)
--- NOTE | 2022-06-12 22:00 | Communication Note ---
Date of Service: June 12, 2022 messaged about bsg 86 at 835PM. reviewed insulin requirements. loosening goal from 150 to 160. changed carb ratio from 10 to 15. changing qhs lantus 20 (not given this evening) to qam lantus 10. future npo at 7AM noted.
[2022-06-12] MEDS: LANTUS PER UNIT CHARGE SQ SCH (22:02)
[2022-06-13] MEDS: oxyCODONE/ACETAMINOPHEN 10-325 TAB PO PRN ×3 (00:52→21:22)
[2022-06-13] MEDS: HYDROmorphone INJ 0.5 MG/0.5 ML SYR IV PRN ×7 (01:38→22:42)
[2022-06-13] MEDS: ONDANSETRON INJ 2 MG/ML 2 ML VIAL IV PRN (06:47)
--- NOTE | 2022-06-13 07:02 | Anesthesiology Consultation ---
Date of Service June 13, 2022 Assessment & Plan (1) Encounter for pre-operative examination: Chart Review Chart Review: Acceptable Risk for Surgery and Patient NOT seen in Pre Admission Testing Consults Requested none History Surgery Operation Date: 06/09/22 07:00 Proposed Procedures p Rivas Catheter Insertion - Lavon uFentes MD Operation Date: 06/13/22 07:00 Proposed Procedures p Left Hallux Great Toe Amupation - Mathew Noriega, DPM, MS Height/Weight Height: 5 ft 2 in Weight: 67.3 kg Allergies Allergy/AdvReac Type Severity Reaction Status Date / Time morphine Allergy Severe blisters Verified 06/06/22 21:09 in mouth Sulfa (Sulfonamide Allergy Severe rash/swelli Verified 06/06/22 21:09 Antibiotics) ng iron [From Venofer] Allergy Intermediate Hypertensio Verified 06/06/22 21:09 n vancomycin Allergy Intermediate YULIYA Verified 06/06/22 21:09 SYNDROME---CAN TAKE IF VERY SLOW DRIP. amoxicillin [From Augmentin] Allergy Mild itching/power Verified 06/06/22 21:09 h clavulanic acid Allergy Mild itching/power Verified 06/06/22 21:09 [From Augmentin] h dermabond AdvReac excoriates Uncoded 06/06/22 21:09 skin Medications Home Medications Medication Instructions Recorded Confirmed Last Taken ropinirole 2 mg tablet 4 mg PO HS 10/19/20 06/06/22 03/07/22 metoprolol succinate 50 mg 50 mg PO QAM 03/05/21 06/06/22 04/06/22 09:00 tablet,extended release 24 hr (Toprol XL) lorazepam 1 mg tablet (Ativan) 1 mg PO TID PRN Anxiety 11/04/21 06/06/22 04/06/22 09:00 cyclobenzaprine 10 mg tablet 10 mg PO BID PRN Muscle Spasm 11/24/21 06/06/22 03/08/22 insulin glargine 100 unit/mL (3 20 unit subcut HS 03/08/22 06/06/22 04/05/22 21:00 mL) subcutaneous pen (Lantus Solostar U-100 Insulin) insulin lispro 100 unit/mL 5 unit subcut TIDM 03/08/22 06/06/22 04/06/22 09:00 subcutaneous pen ondansetron 8 mg disintegrating 8 mg translingual TID PRN Nausea 03/08/22 06/06/22 Unknown tablet zolpidem 10 mg tablet 10 mg PO HS PRN Sleep 03/08/22 06/06/22 Unknown clopidogrel 75 mg tablet 75 mg PO QAM #30 tabs 03/30/22 06/06/22 04/06/22 09:00 aspirin 81 mg tablet,delayed 81 mg PO DAILY #30 tabs 04/20/22 06/06/22 04/06/22 09:00 release (Melissa Low Dose Aspirin) hydroxyzine HCl 25 mg tablet 25 mg PO QAM #90 tabs 04/20/22 06/06/22 Unknown multivitamin with folic acid 400 1 tab PO QAM #30 tabs 04/20/22 06/06/22 Unknown mcg tablet (Daily-Werner (with folic acid)) sertraline 50 mg tablet 25 mg PO HS #27 tabs 04/20/22 06/06/22 Unknown oxycodone-acetaminophen 10 mg-325 1 tab PO Q4H PRN pain #30 tabs 05/09/22 06/06/22 Unknown mg tablet (Percocet) pregabalin 75 mg capsule 75 mg PO BID 06/06/22 06/06/22 Unknown Active Medications Generic Name Dose Route Start Last Admin Trade Name John PRN Reason Stop Dose Admin Amlodipine Besylate 5 mg 06/12/22 09:00 06/12/22 08:39 Amlodipine Besylate 5 Mg Tab PO 07/12/22 08:59 5 mg QAM RICKY Administration Aspirin 81 mg 06/07/22 09:00 06/12/22 08:38 Aspirin 81 Mg Ectab PO 07/07/22 08:59 81 mg DAILY RICKY Administration Clopidogrel Bisulfate 75 mg 06/07/22 09:00 06/12/22 08:38 Clopidogrel Bisulfate 75 Mg Tab PO 07/07/22 08:59 75 mg QAM RICKY Administration Cyclobenzaprine HCl 10 mg 06/07/22 00:34 06/12/22 20:49 Cyclobenzaprine Hcl 10 Mg Tab PO 07/07/22 00:33 10 mg BID PRN Administration Muscle Spasm Enoxaparin Sodium 40 mg 06/07/22 09:00 06/12/22 08:38 Enoxaparin Inj 40 Mg/0.4 Ml Syr SQ 07/07/22 08:59 40 mg Q24H RICKY Administration Heparin Sodium (Beef Lung) 5 ml 06/11/22 21:31 06/12/22 06:36 Heparin 10 Unit/Ml 5 Ml Flush FLUSH 07/11/22 21:30 5 ml PRN PRN Administration Flush Hydromorphone HCl 0.5 mg 06/12/22 12:34 06/13/22 04:48 Hydromorphone Inj 0.5 Mg/0.5 Ml Syr IV 06/26/22 12:33 0.5 mg Q3H PRN Administration Pain Hydroxyzine HCl 25 mg 06/07/22 09:00 06/12/22 08:38 Hydroxyzine Hcl 25 Mg Tab PO 07/07/22 08:59 25 mg QAM RICKY Administration Promethazine HCl 12.5 mg/ 50.5 mls @ 202 mls/hr 06/07/22 18:54 06/12/22 05:00 Sodium Chloride IV 07/07/22 18:53 Infused Q6H PRN Infusion Nausea And Vomiting Pantoprazole Sodium 40 mg/ 10 mls @ 5 mls/min 06/07/22 21:30 06/12/22 20:45 Syringe IV 07/07/22 21:29 5 mls/min BID RICKY Administration Vancomycin HCl 1,750 mg/ 535 mls @ 100 mls/hr 06/10/22 20:00 06/13/22 02:03 Sodium Chloride IV 06/17/22 19:59 Infused Q12H RICKY Infusion Protocol Insulin Aspart 0 units 06/07/22 07:30 06/12/22 21:03 Insulin Aspart Per Unit SC 07/07/22 07:29 Not Given ACHS RICKY Lorazepam 1 mg 06/07/22 00:34 06/12/22 12:58 Lorazepam 1 Mg Tab PO 07/07/22 00:33 1 mg TID PRN Administration Anxiety Metoprolol Succinate 50 mg 06/07/22 09:00 06/12/22 08:38 Metoprolol Succ 50mg Ext Rel Tab PO 07/07/22 08:59 50 mg QAM RICKY Administration Metoprolol Tartrate 5 mg 06/06/22 23:39 06/12/22 05:27 Metoprolol Tartrate 1 Mg/Ml Vial IV 07/06/22 23:38 5 mg Q5M PRN Administration Tachycardia Multivitamins 1 tab 06/07/22 09:00 06/12/22 08:38 Multivitamin Tab PO 07/07/22 08:59 1 tab QAM RICKY Administration Ondansetron HCl 4 mg 06/07/22 01:53 06/13/22 06:47 Ondansetron Inj 2 Mg/Ml 2 Ml Vial IV 07/07/22 01:52 4 mg Q6H PRN Administration Nausea And Vomiting Oxycodone/Acetaminophen 1 tab 06/07/22 00:34 06/13/22 06:35 Oxycodone/Acetaminophen 10-325 Tab PO 06/21/22 00:33 1 tab Q4H PRN Administration Moderate Pain Pregabalin 75 mg 06/07/22 00:34 06/12/22 20:45 Pregabalin 75 Mg Cap PO 07/07/22 00:33 75 mg BID RICKY Administration Ropinirole HCl 4 mg 06/07/22 21:00 06/12/22 20:44 Ropinirole Hcl 2 Mg Tablet PO 07/07/22 20:59 4 mg HS RICKY Administration Sertraline HCl 25 mg 06/07/22 21:00 06/12/22 20:44 Sertraline Hcl 50 Mg Tablet PO 07/07/22 20:59 25 mg HS RICKY Administration Zolpidem Tartrate 10 mg 06/07/22 00:34 06/12/22 21:25 Zolpidem Tartrate 10 Mg Tab PO 07/07/22 00:33 10 mg HS PRN Administration Sleep NPO Date Last Intake of Fluids: 06/08/22 Time Last Intake of Fluids: 21:15 Last Intake of Fluids Comment: clear liquid diet Date Last Intake of Solids: 06/06/22 Past Medical History Medical History Acidosis, lactic Acute dehydration 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 No issues per anesthesia postop progress note. Anemia Cellulitis Chronic back pain Chronic pain syndrome Costochondritis COVID-19 Depression Diabetes mellitus type 2, uncontrolled Diabetic peripheral neuropathy Diastolic CHF DM2 (diabetes mellitus, type 2) IDDM, A1c 07/2021-11% Gastritis Gastroenteritis GIB (gastrointestinal bleeding) History of amputation of great toe HTN (hypertension) Hyperlipidemia Hyponatremia Infection of left great toe due to methicillin resistant Staphylococcus aureus (MRSA) Insomnia Insulin dependent diabetes mellitus Iron deficiency anemia Nonobstructive atherosclerosis of coronary artery Numbness of lower extremity Opiate abuse, continuous Opiate dependence Opioid dependence Osteomyelitis of great toe of left foot Peripheral neuropathy Right second toe ulcer Seizures Sepsis Past Family History Family History Mother , age 63 Myocardial infarction Father , age 68 or 69 Myocardial infarction Brother S/P CABG (coronary artery bypass graft) Sister Myocardial infarction x 3; she is 57yo Past Surgical History Surgical History History of esophagogastroduodenoscopy (EGD) History of right below knee amputation (12/22/21) Right Below Knee Amputation(Right) - Davon Good MD, FACS Social History Smoking Status: Current some day smoker tobacco type: cigarettes Smoking cigarettes per day: 20 Hx Alcohol Use: No Hx Substance Use: Yes substance use type: marijuana Substance Use Type Other:: medical marijuana Physical Exam Vital Signs Last Vital Signs Temp 98.8 F 06/13/22 03:20 Pulse 75 06/13/22 03:20 Resp 18 06/13/22 03:20 BP 144/68 H 06/13/22 03:20 Pulse Ox 94 06/13/22 03:20 O2 Del Method 06/13/22 03:20 O2 Flow Rate 2 06/09/22 16:10 Testing Laboratory Results 06/12/22 06:29 06/12/22 06:29 Urine Color Yellow 06/06/22 19:00 Urine Appearance Clear (Clear) 06/06/22 19:00 Urine pH 7.0 (4.5-7.5) 06/06/22 19:00 Ur Specific [place] 1.011 (1.000-1.030) 06/06/22 19:00 Urine Protein Negative (Negative) 06/06/22 19:00 Urine Glucose (UA) Negative (Negative) 06/06/22 19:00 Urine Ketones Negative (Negative) 06/06/22 19:00 Urine Nitrite Negative (Negative) 06/06/22 19:00 Ur Leukocyte Esterase Negative (Negative) 06/06/22 19:00 06/12/22 20:35 POC Glucose 86 Electrocardiogram Date: 05/01/22 Findings: + NSR @ Echocardiogram Date: 04/29/22 LV Function: normal Valvular Disease: + no significant valvular disease
[2022-06-13] MEDS: INSULIN ASPART PER UNIT SC SCH ×4 (07:44→21:34)
[2022-06-13] MEDS: VANCOMYCIN HCL 1,750 MG in SODIUM CHLORIDE 0.9% 500 ML IV SCH ×2 (07:53→19:46)
[2022-06-13] MEDS: amLODIPine BESYLATE 5 MG TAB PO SCH (07:53)
[2022-06-13] MEDS: CLOPIDOGREL BISULFATE 75 MG TAB PO SCH (07:54)
[2022-06-13] MEDS: ASPIRIN 81 MG ECTAB PO SCH (07:54)
[2022-06-13] MEDS: METOPROLOL SUCC 50MG EXT REL TAB PO SCH (07:55)
[2022-06-13] MEDS: hydrOXYzine HCl 25 MG TAB PO SCH (07:55)
[2022-06-13] MEDS: PREGABALIN 75 MG CAP PO SCH ×2 (07:56→21:20)
[2022-06-13] MEDS: MULTIVITAMIN TAB PO SCH (07:56)
[2022-06-13] MEDS: PANTOprazole 40 MG in SYRINGE 0 ML IV SCH ×2 (07:59→21:21)
[2022-06-13 08:02] LABS: Hematocrit (blood only) 36.4 % (34.1-44.9); Hemoglobin 11.9 g/dl (12.0-16.0); Mean Corpuscular Hemoglobin 26.6 pg (25.0-34.0); Mean Corpuscular Hgb Conc 32.7 g/dL (32.0-36.0); Mean Corpuscular Volume 81.3 fL (80.0-100.0); Mean Platelet Volume 10.3 fL (9.4-12.3); Platelet Count 268 K/uL (130-400); RDW Coefficient of Variation 15.9 % (11.5-14.5); RDW Standard Deviation 47.8 fL (36.4-46.3); Red Blood Count 4.48 M/uL (3.93-5.22); White Blood Count 11.31 K/ul (4.8-10.8)
[2022-06-13] MEDS: LORazepam 1 MG TAB PO PRN ×2 (08:02→22:12)
[2022-06-13 08:25] LABS: BUN Creatinine Ratio 19.1 (10-20); Calcium 9.3 mg/dl (8.5-10.1); Creatinine Clr Calc Pharmacy 117.4 ml/min; Est GFR (African American) 126.2 ml/min; Est GFR (Non-African American) 108.9 ml/min; Potassium 3.7 mmol/L (3.5-5.1)
[2022-06-13] MEDS: ENOXAPARIN INJ 40 MG/0.4 ML SYR SQ SCH (08:55)
[2022-06-13] MEDS: LANTUS PER UNIT CHARGE SQ SCH (09:34)
--- NOTE | 2022-06-13 12:33 | Hospitalist Progress Note ---
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 Mild pain or fever Oxycodone/acetaminophen 5/325, 1 p.o. every 4 hours as needed moderate pain Dilaudid 1 mg IV every 6 hours as needed severe pain Will need antibiotics for 4 weeks Patient insisted that she wants surgical debridement/partial amputation of her toe, although Podiatry does not recommend, but she will be scheduled for OR by 3pm (2) Diabetes mellitus type 2, uncontrolled: Plan: Reported BG 86 last night, lantus was held and sliding scale liberalized Placed on Accu-Cheks before meals and at bedtime with NovoLog coverage per scale (3) Nausea: Plan: Improving could be due to gastroparesis from Diabetes Zofran PRN (4) MRSA (methicillin resistant staph aureus) culture positive: (5) PAD (peripheral artery disease): Plan: Continue aspirin and clopidogrel (6) Anxiety: Plan: Anxiety/depression continue hydroxyzine, lorazepam, sertraline and zolpidem (7) Depression: (8) Diabetic peripheral neuropathy: Plan: Continue pregabalin and ropinirole (9) Chronic pain syndrome: Plan: As above Plan For OR today Admission and Anticipated Discharge Date Admission Date: June 06, 2022 Subjective patient seen and examined, awaitng OR by 3pm Review of Systems Review of Systems: All systems reviewed are negative, apart from the ones contained in the history. Physical Exam Physical Exam: The patient is awake, alert and oriented 3, well developed and well nourished, normocephalic and atraumatic, lying in bed and in no acute d istress. HEENT--PERRL, EOMI, mucous membranes and oropharynx mildly dry Neck--supple. No JVD. No bruits. Thyroid normal, trachea midline, no adenopathy. Heart--normal S1 and S2. No murmurs, rubs or gallops. Lungs--clear bilaterally, no respiratory distress, no accessory muscle use. Abdomen--normal bowel sounds and soft. Mild epigastric and left sided abdominal pain Extremities--RBKA, left big toe cellulitis Dermatologic--normal skin turgor, normal color, no abnormal lymph nodes, no rash. Neurologic--cranial nerves II through XII grossly intact. Rheumatologic--normal range of motion. Psychiatric--normal affect. Results & Data Results & Data ([facility]) Vital Signs (Past 12 Hours) Vital Signs Temp Pulse Pulse Resp BP Pulse Ox O2 Del Method 06/13/22 11:03 98.2 F 73 18 169/80 H 91 Room Air 06/13/22 07:57 98.4 F 70 18 165/70 H 94 Room Air 06/13/22 03:20 98.8 F 75 18 144/68 H 94 Room Air 06/13/22 00:39 79 PG Care Time/CCT Total # of Minutes Spent Total Time Spent with Patient: Total time spent is greater than 50% in coordination of care (as documented) at patient's floor/unit and/or counseling patient: Coding Level of Care Code 44908 Subseq Hosp Care Lvl 2 Diagnoses Cellulitis of left foot L03.116 Diabetes mellitus type 2, uncontrolled E11.65 Nausea R11.0 MRSA (methicillin resistant staph aureus) culture positive Z22.322 PAD (peripheral artery disease) I73.9 Anxiety F41.9 Depression F32.9 Diabetic peripheral neuropathy E11.42 Chronic pain syndrome G89.4 Time Spent (min) 35
[2022-06-13] MEDS ORDERED: hydrALAZINE HCL 20 MG/ML VIAL ONE (14:11)
[2022-06-13] MEDS: hydrALAZINE HCL 20 MG/ML VIAL IV PRN ×2 (14:13→19:46)
[2022-06-13] MEDS ORDERED: BUPIVACAINE 0.5 % 5 MG/1 ML MPF 30ML VIAL ONE (15:34)
[2022-06-13] MEDS ORDERED: MIDAZOLAM HCL 1 MG/ML 2ML VIAL ONE (15:36)
[2022-06-13] MEDS ORDERED: PROPOFOL IV EMULSION 10 MG/ML 20 ML VIAL IV ONE (15:36)
[2022-06-13] MEDS ORDERED: DEXAMETHASONE SOD INJ 4 MG/ML VIAL ONE (15:36)
[2022-06-13] MEDS ORDERED: fentaNYL citrate 100 MCG/2 ML VIAL ONE ×2 (15:36→17:11)
[2022-06-13] MEDS ORDERED: ONDANSETRON INJ 2 MG/ML 2 ML VIAL ONE (15:36)
--- NOTE | 2022-06-13 15:55 | History & Physical Bridge Note ---
Date of Service June 13, 2022 History & Physical Bridge Note I have examined the patient, reviewed the History & Physical and in the interval since the performance of the History & Physical I have noted the following changes of clinical significance: no changes noted
[2022-06-13] MEDS ORDERED: KETAMINE 50 MG/5 ML SYRINGE ONE (16:02)
--- NOTE | 2022-06-13 16:53 | Post Operative Brief Note ---
Immediate Post Op Note v1 Date of Surgery June 13, 2022 Pre & Post Diagnosis Operation Date: 06/09/22 07:00 Pre-Op Diagnosis: Lack of Venous Access Post-Op Diagnosis: Lack of Venous Access Operation Date: 06/13/22 07:00 Pre-Op Diagnosis: Ulcer of left great toe due to diabetes mellitus Post-Op Diagnosis: Ulcer of left great toe due to diabetes mellitus I identified the patient and participated in the time-out.: Yes Procedure Operation Date: 06/09/22 07:00 Actual Procedures p Rivas Catheter Insertion,Right Jugular Approach, Ultrasound Localization of Right Internal Jugular Vein,Fluoroscopy for Positioning(Right) - Lavon Fuentes MD Operation Date: 06/13/22 07:00 Actual Procedures p Left Hallux Great Toe Amupation(Left) - Mathew Noriega DPM, MS Surgeon Mathew Noriega DPM, MS Vp Product Management None Estimated Blood Loss 0 Findings Consistent with Post-Op Diagnosis Diabetic foot ulcer left distal hallux Anesthesia Type MAC
[2022-06-13] MEDS ORDERED: ePHEDrine sulfate 50 MG/ML AMP IV PRN (17:03)
[2022-06-13] MEDS ORDERED: PROMETHAZINE HCL 12.5 MG in SODIUM CHLORIDE 0.9% 50 ML IV PRN (17:03)
[2022-06-13] MEDS ORDERED: LABETALOL HCL IV 5 MG/ML 20ML IV PRN (17:03)
[2022-06-13] MEDS ORDERED: NALOXONE HCL 0.4 MG/1 ML VIAL/CARP IV PRN (17:03)
[2022-06-13] MEDS ORDERED: ONDANSETRON INJ 2 MG/ML 2 ML VIAL IV PRN (17:03)
[2022-06-13] MEDS ORDERED: FLUMAZENIL 0.1 MG/1 ML 10 ML VIAL IV PRN (17:03)
[2022-06-13] MEDS ORDERED: ATROPINE SULFATE 0.1 MG/ML 10ML SYR IV PRN (17:03)
[2022-06-13] MEDS: fentaNYL citrate 100 MCG/2 ML VIAL IV PRN ×2 (17:13→17:18)
--- NOTE | 2022-06-13 18:20 | Anesthesiology Progress Note ---
Date of Service June 13, 2022 Anesthesia Post Procedure Vital Signs Vital Signs: Temp Pulse Pulse Pulse Resp BP BP 06/13/22 18:15 67 18 143/69 H 06/13/22 17:58 67 16 140/71 06/13/22 17:52 37.1 C 67 18 154/72 H 06/13/22 17:15 69 22 155/67 H 06/13/22 17:25 36.3 C L 70 12 141/70 H 06/13/22 17:05 65 15 123/59 L 06/13/22 16:55 36.8 C 68 16 124/60 06/13/22 15:30 37 C 72 18 166/86 H 06/13/22 14:55 37.1 C 72 19 06/13/22 14:00 66 06/13/22 11:03 36.8 C 73 18 06/13/22 07:57 36.9 C 70 18 06/13/22 03:20 37.1 C 75 18 06/13/22 00:39 79 06/13/22 00:00 06/12/22 23:31 37.0 C 74 18 06/12/22 21:00 69 16 156/75 H 06/12/22 19:24 36.9 C 76 18 174/74 H BP Pulse Ox Pulse Ox O2 Del Method O2 Del Method O2 Flow Rate 06/13/22 18:15 91 Room Air 06/13/22 17:58 91 Room Air 06/13/22 17:52 95 Room Air 06/13/22 17:15 99 Oxymask 6 06/13/22 17:25 93 Room Air 06/13/22 17:05 99 Oxymask 6 06/13/22 16:55 97 Oxymask 6 06/13/22 15:30 96 Room Air 06/13/22 14:55 145/69 H 97 Room Air 06/13/22 14:00 189/64 H 06/13/22 11:03 169/80 H 91 Room Air 06/13/22 07:57 165/70 H 94 Room Air 06/13/22 03:20 144/68 H 94 Room Air 06/13/22 00:39 06/13/22 00:00 96 Room Air 06/12/22 23:31 158/72 H 95 Room Air 06/12/22 21:00 06/12/22 19:24 93 Room Air Pain Intensity Left Toe: Pain Intensity: 3 Transfer of Care Handoff Completed per policy Notes Mental Status: alert / awake / arousable Patient Amnestic to Procedure: Yes Nausea / Vomiting: adequately controlled Pain: adequately controlled Airway Patency, RR, SpO2: stable & adequate BP & HR: stable & adequate Hydration State: stable & adequate Anesthetic Complications: no major complications apparent
--- NOTE | 2022-06-13 21:02 | Operative Report ---
Post Operative Report Pre & Post Diagnosis Operation Date: 06/09/22 07:00 Pre-Op Diagnosis: Lack of Venous Access Post-Op Diagnosis: Lack of Venous Access Operation Date: 06/13/22 07:00 Pre-Op Diagnosis: Ulcer of left great toe due to diabetes mellitus Post-Op Diagnosis: Ulcer of left great toe due to diabetes mellitus I identified the patient and participated in the time-out.: Yes Procedure Operation Date: 06/09/22 07:00 Actual Procedures p Rivas Catheter Insertion,Right Jugular Approach, Ultrasound Localization of Right Internal Jugular Vein,Fluoroscopy for Positioning(Right) - Lavon Fuentes MD Operation Date: 06/13/22 07:00 Actual Procedures p Left Hallux Great Toe Amputation(Left) - Mathew Noriega DPM, MS Surgeon Mathew Noriega DPM, MS Instructor Dramatic Arts None Estimated Blood Loss 0 Findings Consistent with Post-Op Diagnosis Left distal non healing ulcer Specimens Left distal first phalanx Description of Procedure History of present illness: Patient is a type II diabetic, 57 year old female who is seen for treatment of a non healing distal left hallux diabetic foot ulcer. Recent MRI shows possible suspicion for osteomyelitis of the left first distal phalanx. Patient is requesting removal of first distal phalanx and non healing distal left first digit non healing diabetic ulcer. All questions answered. Discussed procedure in detail and postoperative recovery. All potential risks, benefits, complications, alternatives, rehab, potential for incomplete relief of symptoms, need for further surgery, DVT, PE, , persistent pain, swelling, scarring, weakness, neurovascular, wound complications and potential for amputations were discussed with patient. Unwanted outcomes such as, but not limited to were reviewed including under correction, overcorrection, return of deformity, infection. All questions were answered. Patient has decided to proceed with procedure as indicated. Preoperative diagnosis: Diabetic ulcer osteomyelitis left first distal phalanx Postoperative diagnosis: same Name of operation: Fillet of left distal great toe Surgeon Dr. Noriega Instructor Dramatic Arts: None Anesthesia: local with monitored anesthesia care Hemostasis: pneumatic ankle tourniquet Estimated blood loss: minimal Procedure in detail: Under mild sedation the patient was brought in the operating room placed on the operating table in supine position. A pneumatic ankle tourniquet was then placed about the patient's left ankle. Following IV sedation local anesthesia was obtained about the left utilizing 15 cc of a one-to-one mixture of 1% lidocaine plain and 0.5% Marcaine plain. The foot was then prepped scrubbed and draped in usual aseptic manner. An Esmarch bandage was utilized to exsanguinate the patient's left foot and the pneumatic ankle tourniquet was then inflated. Attention was then directed to a nonhealing diabetic ulcer on the left distal first toe. Utilizing a sharp, sterile, #15 blade an incision is created to circumferentially about the distal diabetic ulcer. The incision is deepened through subcutaneous tissue using sharp blunt dissection. Care was taken to identify and retract all vital neurovascular structures. All bleeders were ligated and cauterized necessary. The distal first phalanx and Diabetic foot ulcer are excised and placed on the back table. They are labeled and sent to Pathology. A deep wound culture is then take. Next 1L of lactate ringer is utilized to irrigate the incision site on low flow. At this time utilizing a sharp, sterile, #15 blade the incision was lengthened proximally to initiate the fillet flap of toe, in addition preparation of the recipient site. The recipient site is prepared, and the flap is rotated into place. Excess tissue is excised, and the wound is closed in layers. The skin was then primarily closed utilizing 3-0 nylon in horizontal suture mattress techniques as well as simple suture closure. Upon completion of the procedure the incision was dressed with Betadine soaked Adaptic followed by sterile compressive dressing consisting of 4 x 4's, Candice, Kerlix, ABD, the pneumatic ankle tourniquet was deflated, and a prompt hyperemic response was noted to all digits of the left foot. Coban was then applied. The Patient tolerated the procedure and anesthesia well. She was transferred to recovery room vital signs stable and vascular status intact to all toes of the left foot following. Following a period of postoperative monitoring the patient will be readmitted to the floor resuming all preoperative orders. I attest to the content of the Intraoperative Record and any orders documented therein. Any exceptions are noted below.
[2022-06-13] MEDS ORDERED: ONDANSETRON INJ 2 MG/ML 2 ML VIAL IV STA (21:03)
[2022-06-13] MEDS: SERTRALINE HCL 50 MG TABLET PO SCH (21:20)
[2022-06-13] MEDS: rOPINIRole HCL 2 MG TABLET PO SCH (21:20)
[2022-06-13] MEDS: ZOLPIDEM TARTRATE 10 MG TAB PO PRN (21:41)
[2022-06-13] MEDS ORDERED: NITROGLYCERIN SL 0.4 MG/TAB TAB SL PRN (23:32)
--- NOTE | 2022-06-13 23:38 | Communication Note ---
Date of Service: June 13, 2022 9pm: called about pain. assessed. ordered zofran sooner (4 hours since previous). no escalation in dilaudid regimen chest pain at ~10pm. ecg reviewed, inferior lead st elevations 1mm, unchanged from ecg in April. ordering troponin. prn nitro. discussed ecg w/ attending physician.
[2022-06-14 00:30] LABS: Basophils # (auto) 0.08 K/uL (0-0.2); Basophils % (auto) 0.6 %; Eosinophils # (auto) 0.69 K/uL (0-0.50); Hematocrit (blood only) 34.2 % (34.1-44.9); Hemoglobin 11.2 g/dl (12.0-16.0); Immature Granulocytes # (auto) 0.03 K/uL (0.00-0.02); Immature Granulocytes % (auto) 0.2 %; Lymphocytes % (auto) 16.1 %; Mean Corpuscular Hemoglobin 26.7 pg (25.0-34.0); Mean Corpuscular Hgb Conc 32.7 g/dL (32.0-36.0); Mean Corpuscular Volume 81.4 fL (80.0-100.0); Mean Platelet Volume 10.1 fL (9.4-12.3); Monocytes % (auto) 6.6 %; Neutrophils % (auto) 71.5 %; Platelet Count 263 K/uL (130-400); RDW Coefficient of Variation 16.1 % (11.5-14.5); RDW Standard Deviation 47.9 fL (36.4-46.3)
[2022-06-14 00:55] LABS: BUN Creatinine Ratio 22.7 (10-20); Calcium 8.9 mg/dl (8.5-10.1); Creatinine Clr Calc Pharmacy 125.4 ml/min; Est GFR (Non-African American) 111.3 ml/min; Magnesium 1.7 mg/dl (1.7-2.4); Potassium 3.7 mmol/L (3.5-5.1)
[2022-06-14 00:57] LABS: Troponin I High Sensitivity 4.8 pg/ml (0-14)
[2022-06-14] MEDS: oxyCODONE/ACETAMINOPHEN 10-325 TAB PO PRN ×4 (01:22→19:42)
[2022-06-14] MEDS: HYDROmorphone INJ 0.5 MG/0.5 ML SYR IV PRN ×6 (02:35→21:14)
[2022-06-14] MEDS: PREGABALIN 75 MG CAP PO SCH ×2 (08:28→20:43)
[2022-06-14] MEDS: CLOPIDOGREL BISULFATE 75 MG TAB PO SCH (08:28)
[2022-06-14] MEDS: MULTIVITAMIN TAB PO SCH (08:28)
[2022-06-14] MEDS: ENOXAPARIN INJ 40 MG/0.4 ML SYR SQ SCH (08:28)
[2022-06-14] MEDS: hydrOXYzine HCl 25 MG TAB PO SCH (08:28)
[2022-06-14] MEDS: amLODIPine BESYLATE 5 MG TAB PO SCH (08:28)
[2022-06-14] MEDS: METOPROLOL SUCC 50MG EXT REL TAB PO SCH (08:28)
[2022-06-14] MEDS: ASPIRIN 81 MG ECTAB PO SCH (08:28)
[2022-06-14] MEDS: VANCOMYCIN HCL 1,750 MG in SODIUM CHLORIDE 0.9% 500 ML IV SCH ×2 (08:30→19:41)
[2022-06-14] MEDS: ONDANSETRON INJ 2 MG/ML 2 ML VIAL IV PRN ×2 (08:55→15:45)
[2022-06-14] MEDS: PANTOprazole 40 MG in SYRINGE 0 ML IV SCH ×2 (08:55→21:14)
[2022-06-14] MEDS: INSULIN ASPART PER UNIT SC SCH ×4 (09:30→21:57)
[2022-06-14] MEDS: LANTUS PER UNIT CHARGE SQ SCH (09:34)
--- NOTE | 2022-06-14 13:28 | Hospitalist Progress Note ---
Date of Service June 14, 2022 Assessment & Plan (1) Cellulitis of left foot: Plan: Presents with Cellulitis of left great toe/recent osteomyelitis/history of MRSA- Initially on ceftriaxone 2 g IV and doxycycline 100 mg IV twice daily However, MRI foot showed evidence of osteitis and possible osteomyelitis, and coupled with worsening leucocytosis, we switched abx to vancomycin (hx of frankie syndrome, will administer very slowly) Patient insisted that she wants surgical debridement/partial amputation of her toe She is now day 1 post fillet of distal big toe samples sent for pathology Initially thought to need antibiotics for 4 weeks, however will need a week if all the infected margins were removed Oxycodone/acetaminophen 5/325, 1 p.o. every 4 hours as needed moderate pain Dilaudid 1 mg IV every 6 hours as needed severe pain (2) Diabetes mellitus type 2, uncontrolled: Plan: Reported BG 86 last night, lantus was held and sliding scale liberalized Placed on Accu-Cheks before meals and at bedtime with NovoLog coverage per scale (3) Nausea: Plan: Improving could be due to gastroparesis from Diabetes Zofran PRN (4) MRSA (methicillin resistant staph aureus) culture positive: (5) PAD (peripheral artery disease): Plan: Continue aspirin and clopidogrel (6) Anxiety: Plan: Anxiety/depression continue hydroxyzine, lorazepam, sertraline and zolpidem (7) Depression: (8) Diabetic peripheral neuropathy: Plan: Continue pregabalin and ropinirole (9) Chronic pain syndrome: Plan: As above Plan d/c in the next 24 hrs Admission and Anticipated Discharge Date Admission Date: June 06, 2022 Subjective patient seen and examined, complains of pain after her surgery Review of Systems Review of Systems: All systems reviewed are negative, apart from the ones contained in the history. Physical Exam Physical Exam: The patient is awake, alert and oriented 3, well developed and well nourished, normocephalic and atraumatic, lying in bed and in no acute distress. HEENT--PERRL, EOMI, mucous membranes and oropharynx mildly dry Neck--supple. No JVD. No bruits. Thyroid normal, trachea midline, no adenopathy. Heart--normal S1 and S2. No murmurs, rubs or gallops. Lungs--clear bilaterally, no respiratory distress, no accessory muscle use. Abdomen--normal bowel sounds and soft. Mild epigastric and left sided abdominal pain Extremities--RBKA, left big toe cellulitis Dermatologic--normal skin turgor, normal color, no abnormal lymph nodes, no rash. Neurologic--cranial nerves II through XII grossly intact. Rheumatologic--normal range of motion. Psychiatric--normal affect. Results & Data Results & Data ([facility]) Vital Signs (Past 12 Hours) Vital Signs Temp Pulse Pulse Resp BP BP Pulse Ox 06/14/22 08:00 06/14/22 10:53 98.6 F 76 18 160/72 H 92 06/14/22 10:26 98.1 F 83 16 157/95 H 94 06/14/22 09:03 80 175/83 H 06/14/22 08:24 210/68 H 203/83 H 06/14/22 07:00 90 06/14/22 07:07 98.6 F 83 18 152/68 H 94 06/14/22 04:33 81 06/14/22 02:45 99.3 F 87 16 133/58 L 89 L O2 Del Method 06/14/22 08:00 Room Air 06/14/22 10:53 Room Air 06/14/22 10:26 Room Air 06/14/22 09:03 06/14/22 08:24 06/14/22 07:00 06/14/22 07:07 Room Air 06/14/22 04:33 06/14/22 02:45 Room Air PG Care Time/CCT Total # of Minutes Spent Total Time Spent with Patient: Total time spent is greater than 50% in coordination of care (as documented) at patient's floor/unit and/or counseling patient: Coding Level of Care Code 48025 Subseq Hosp Care Lvl 2 Diagnoses Cellulitis of left foot L03.116 Diabetes mellitus type 2, uncontrolled E11.65 Nausea R11.0 MRSA (methicillin resistant staph aureus) culture positive Z22.322 PAD (peripheral artery disease) I73.9 Anxiety F41.9 Depression F32.9 Diabetic peripheral neuropathy E11.42 Chronic pain syndrome G89.4 Time Spent (min) 35
--- NOTE | 2022-06-14 13:58 | Electrocardiogram Report ---
Test Reason : Blood Pressure : / mmHG Vent. Rate : 094 BPM Atrial Rate : 094 BPM P-R Int : 154 ms QRS Dur : 078 ms QT Int : 350 ms P-R-T Axes : 060 067 073 degrees QTc Int : 437 ms Normal sinus rhythm When compared with ECG of 01-MAY-2022 11:00, No significant change was found Confirmed by Harvinder Guerra ([id number]) on 06/14/2022 1:58:10 PM Referred By: REFERRED SELF Confirmed By:Scot Guerra
[2022-06-14] MEDS: LORazepam 1 MG TAB PO PRN (16:58)
[2022-06-14] MEDS: hydrALAZINE HCL 20 MG/ML VIAL IV PRN (16:59)
[2022-06-14] MEDS: PROMETHAZINE HCL 12.5 MG in SODIUM CHLORIDE 0.9% 50 ML IV PRN (18:39)
[2022-06-14] MEDS: SERTRALINE HCL 50 MG TABLET PO SCH (20:43)
[2022-06-14] MEDS: ZOLPIDEM TARTRATE 10 MG TAB PO PRN (20:43)
[2022-06-14] MEDS: rOPINIRole HCL 2 MG TABLET PO SCH (20:43)
--- NOTE | 2022-06-14 20:43 | Orthopedic Progress Note ---
Date of Service June 14, 2022 Assessment & Plan (1) Ulcer of left great toe due to diabetes mellitus: Plan: Patient seen, evaluated, and treated. Patient is status post left foot surgery Day #1. She does complain of pain. Post operative dressing may be too compressive and this was discussed. Dressing is changed 4x4, kerlix, coban with out incident. Patient will keep dressing, clean, dry, and intact. This was reviewed. Admission and Anticipated Discharge Date Admission Date: June 06, 2022 Subjective Patient seen at bedside. Patient is status post Day#1 fillet of left great toe. Review of Systems Review of Systems: All systems reviewed & are unremarkable except as noted in HPI & below Physical Exam Skin: Skin is well co-apted. Results & Data ([facility]) Vital Signs (Past 12 Hours) Vital Signs Temp Pulse Pulse Resp BP BP Pulse Ox 06/14/22 19:03 37.5 C 71 16 151/71 H 96 06/14/22 16:00 77 06/14/22 15:50 79 175/85 H 06/14/22 16:58 88 198/86 H 06/14/22 15:12 82 197/113 H 97 06/14/22 14:19 36.9 C 75 19 172/71 H 96 06/14/22 10:53 37.0 C 76 18 160/72 H 92 06/14/22 10:26 36.7 C 83 16 157/95 H 94 06/14/22 09:03 80 175/83 H O2 Del Method 06/14/22 19:03 Room Air 06/14/22 16:00 06/14/22 15:50 06/14/22 16:58 06/14/22 15:12 06/14/22 14:19 Room Air 06/14/22 10:53 Room Air 06/14/22 10:26 Room Air 06/14/22 09:03
[2022-06-15] MEDS: LOPERAMIDE HCL 2 MG CAP PO PRN ×2 (00:36→12:29)
[2022-06-15] MEDS: LORazepam 1 MG TAB PO PRN ×3 (00:36→22:26)
[2022-06-15] MEDS: HYDROmorphone INJ 0.5 MG/0.5 ML SYR IV PRN ×11 (00:37→21:16)
[2022-06-15] MEDS: oxyCODONE/ACETAMINOPHEN 10-325 TAB PO PRN ×4 (01:14→22:29)
--- NOTE | 2022-06-15 07:53 | Hospitalist Progress Note ---
Date of Service June 15, 2022 Assessment & Plan (1) Ulcer of left great toe due to diabetes mellitus: Plan: Patient seen by PCP OVEN HEATER with erythema/streaking up leg from 1st digit LLE, started 3 days OVEN HEATER and sent to ER for admission. Initially placed on Ceftriaxone 2gm IV/Doxycycline 100mg MRI with : IMPRESSION: 1. Suggested cellulitis of the forefoot, most pronounced within the great toe with probable associated paronychia. No abscess. 2. Minimal marrow edema of the first distal phalangeal tuft with preserved T1 signal suggestive of osteitis. Early osteomyelitis could appear similarly. No osseous erosions identified. Podiatry consulted, Dr Noriega Poor vascular access/PAD at baseline --> Dr Fuentes consulted last week, patient underwent placement of castro catheter R IJ POD #2 s/p Fillet of left distal great toe with Dr Noriega 06/13 for ulcer of left great toe due to diabetes mellitus Pathology pending Per Dr Noriega, clear margins Continues on Vancomycin IV -- hx frankie syndrome, slowly administer --> Will need 1 week IV vancomycin from surgery date per Dr Noriega, CM assisting to arrange. Has castro catheter as above. End date for Vancomycin 06/20 WBC 13.7k--> 10.2k, afebrile Pain control --> Dilaudid 0.5mg IV prn -- discussed with patient given increased pain/HTN from pain improved with control this morning and acute pain control inpatient --> Ordered additional 0.5mg dose for this afternoon and additional 1time dose to use with ordered 0.5mg dose. Also decreased frequency to Q2H prn for time being. Oxycodone PO prn as well for non-severe pain ?increasing her pregabalin for neuropathic typc pain as well Also discussed component of anxiety given multiple hospitalizations/amputations/etc -- she is on vistaril 25mg in the morning, reported this is effective. Discussed 10mg x1 now, can use 10mg dosing during the day and also ordered dose for this evening to help with anxiety/itchiness from the vancomycin/etc Moving her bowels --> reported diarrhea overnight. Stool testing cdiff gene +, toxin negative. Immodium provided. Monitor for increased BMs, repeat testing if needed. Will add probiotic while on abx Discussed therapy consults with Dr Noriega -- patient non-weight bearing, rec surgical shoe. Consulted orthotics. Patient with CAM boot prior fitted, would be best. Doesn't have with her. Asked RN to call up to third for surgical shoe in the meantime Dr Noriega to be by this evening to change dressing, rec'd podiatry f/u. Also would rec f/u [facility] in follow up as well as wound clinic, which patient declines in the past PT/OT consulted -- did discuss with CM about possible benefit from rehab given patient voiced she was just where she should be/getting taken care of/ working/etc -- at least short term while completing abx. Will await PT/OT evals (2) Cellulitis of left foot: Plan: improving with treatment as outlined patient reported OVEN HEATER she had erythema streaking up her leg into her barbosa (3) Diabetes mellitus type 2, uncontrolled: Plan: A1c 8.7 in March Typically on glargine 20u HS, lispro 5u TIDM at home -- held while inpatient BSG AC/HS, ISS while inpatient Currently on ISS, glargine 10u QAM BSGs acceptable -- monitor (4) Nausea: Plan: Improving, suspect component of pain as well as anxiety contributing, also could be element of gastroparesis from DM, however patient moving her bowels Zofran PRN (5) MRSA (methicillin resistant staph aureus) culture positive: Plan: hx of from L foot prior cx in February - remains on vancomycin as above (6) PAD (peripheral artery disease): Plan: Continue aspirin and clopidogrel quit smoking >1 year ago (7) Anxiety: Plan: Anxiety/depression continue hydroxyzine, lorazepam, sertraline and zolpidem --> increased vistaril as above monitor response (8) Depression: Plan: continue meds as above, does endorse increased anxiety/depression regarding ongoing infections/amputations and fear to end up in BKA as her RLE did this past year reassurance provided, vistaril/pain control as outlined consider increasing her zoloft -- currenrtly 25mg HS monitor (9) Diabetic peripheral neuropathy: Plan: Continue pregabalin and ropinirole check B12 w/ AM labs Consider increasing her pregabalin for neuropathic type pain? --> Also will discuss with patient if she has ever tried cymbalta in the past, may help with mood as well. (10) Chronic pain syndrome: Plan: As above, increased pain control (11) Poor venous access: Plan continued inpatient stay looking into rehab if patient agreeable to continue IV abx at discharge PT/OT consulted, orthotics for surgical shoe however will need to see about someone bringing in her CAM boot. Also, asked RN to call 3rd to see if able to get regular post-op shoe in meantime to allow participation with therapy Dr Noriega to see patient this evening rec f/u outpt [facility]/wound care, again , if patient agreeable Admission and Anticipated Discharge Date Admission Date: June 06, 2022 Supervising Physician Co-Signing Physician Notes PA Supervision Note: I did not personally see or examine the patient today, but I verified all tanner points of CHAVEZ Luther's assessment and plan with the following exceptions/additions: None Subjective Patient evaluated this morning. Doing alright with exception of pain. BP elevated this morning, improved with medication currently as she was just medicated. Tearful when talking about struggles over the past 2 years and her LLE started with the toe as well. Dressing changed last night/loosened by Dr Noriega. She states that has helped, she has been elevating it on a pillow. Prior had had erythema streaking up the leg w/ necrotic area to medial ankle. Improvement in erythema, dressing not removed as just changed last evening. Not seen by wound RN since admission after surgery by Dr Noriega. Discussed sometimes issue with directions, will touch base about instructions. Poor sleep due to waking up with pain. Vistaril given this morning, effective and will order additional dose for tonight along with her pain medication for sleep. If improved sleep/pain control, anticipating possible discharge tomorrow. Some pain to her neck, asked about heating pad but was told not able to provide. Irritated from dressing to R chest from [place], had issues with adhesives in the past. Additional 10mg vistaril to be given this afternoon for reported itchiness. +diarrhea x 2 today, prior stool studies negative for cdiff. To monitor BMs/repeat testing if needed. Questions/concerns addressed at this time/. Review of Systems Review of Systems: All systems reviewed & are unremarkable except as noted in HPI & below Physical Exam Physical Exam: General: chronically ill appearing female sitting up in bed, NAD, just medicated for pain HEENT: head normocephalic, atraumatic, mmm, poor dentition, trachea midline without deviation Chest: castro catheter to R IJ, Tegaderm in place, smaller excoriations/scatch pickering to anterior of dressing (reported issues with adhesives in the past as well) Resp: CTAB, diminished in the bases, no w/c, on room air CV: RRR, no m/r/g, no pitting edema GI: +BS, soft/NT MSk/Neuro: moves all extremities, no focal deficit right BKA S/P L great toe amputation, dressing changed by Dr Noriega last evening, (not removed), toes distally with cap refill, toes mobile, able to wiggles no streaking erythema up foot (previously reported streaking) Psych: AOx3, tearful, cooperative with care Results & Data Results & Data ([facility]) Vital Signs (Past 12 Hours) Vital Signs Temp Pulse Pulse Resp BP BP Pulse Ox 06/15/22 07:14 37.0 C 81 17 154/69 H 97 06/15/22 04:29 37.2 C 78 16 128/64 95 06/14/22 22:25 75 06/15/22 00:00 06/15/22 00:46 36.8 C 77 16 141/90 H 97 Pulse Ox O2 Del Method O2 Del Method 06/15/22 07:14 Room Air 06/15/22 04:29 Room Air 06/14/22 22:25 06/15/22 00:00 95 Room Air 06/15/22 00:46 Room Air Laboratory Results 06/15/22 06/15/22 06/15/22 Range/Units 16:16 10:58 07:12 WBC (4.8-10.8) K/ul RBC (3.93-5.22) M/uL Hgb (12.0-16.0) g/dl Hct (34.1-44.9) % MCV (80.0-100.0) fL MCH (25.0-34.0) pg MCHC (32.0-36.0) g/dL RDW Std Deviation (36.4-46.3) fL RDW Coeff of [place] (11.5-14.5) % Plt Count (130-400) K/uL MPV (9.4-12.3) fL Immature Gran % (Auto) % Neut % (Auto) % Lymph % (Auto) % [place] % (Auto) % Eos % (Auto) % Baso % (Auto) % Neut # (Auto) (1.4-6.5) K/uL Lymph # (Auto) (1.2-3.4) K/uL [place] # (Auto) (0.24-0.82) K/uL Eos # (Auto) (0-0.50) K/uL Baso # (Auto) (0-0.2) K/uL Immature Gran # (Auto) (0.00-0.02) K/uL Sodium (136-145) mmol/L Potassium (3.5-5.1) mmol/L Chloride (98-107) mmol/L Carbon Dioxide (21-32) mmol/L Anion Gap (3-11) BUN (6-23) mg/dl Creatinine (0.6-1.2) mg/dl Est Cr Clr Drug Dosing ml/min Est GFR ( Amer) ml/min Est GFR (Non-Af Amer) ml/min BUN/Creatinine Ratio (10-20) Glucose (70-99(Fasting)) mg/dl POC Glucose 145 H 100 H 151 H (70-99) mg/dl Calcium (8.5-10.1) mg/dl Magnesium (1.7-2.4) mg/dl Random Vancomycin (10-20) mcg/ml 06/15/22 06/15/22 06/15/22 Range/Units 06:01 06:01 05:57 WBC 10.28 (4.8-10.8) K/ul RBC 4.21 (3.93-5.22) M/uL Hgb 11.3 L (12.0-16.0) g/dl Hct 34.9 (34.1-44.9) % MCV 82.9 (80.0-100.0) fL MCH 26.8 (25.0-34.0) pg MCHC 32.4 (32.0-36.0) g/dL RDW Std Deviation 49.0 H (36.4-46.3) fL RDW Coeff of [place] 16.2 H (11.5-14.5) % Plt Count 290 (130-400) K/uL MPV 10.5 (9.4-12.3) fL Immature Gran % (Auto) 0.4 % Neut % (Auto) 68.1 % Lymph % (Auto) 16.1 % [place] % (Auto) 9.7 % Eos % (Auto) 5.0 % Baso % (Auto) 0.7 % Neut # (Auto) 7.01 H (1.4-6.5) K/uL Lymph # (Auto) 1.65 (1.2-3.4) K/uL [place] # (Auto) 1.00 H (0.24-0.82) K/uL Eos # (Auto) 0.51 H (0-0.50) K/uL Baso # (Auto) 0.07 (0-0.2) K/uL Immature Gran # (Auto) 0.04 H (0.00-0.02) K/uL Sodium 139 (136-145) mmol/L Potassium 3.6 (3.5-5.1) mmol/L Chloride 103 (98-107) mmol/L Carbon Dioxide 31 (21-32) mmol/L Anion Gap 5 (3-11) BUN 9 (6-23) mg/dl Creatinine 0.39 L (0.6-1.2) mg/dl Est Cr Clr Drug Dosing 146.5 ml/min Est GFR ( Amer) 134.2 ml/min Est GFR (Non-Af Amer) 115.8 ml/min BUN/Creatinine Ratio 23.1 H (10-20) Glucose 116 H (70-99(Fasting)) mg/dl POC Glucose (70-99) mg/dl Calcium 9.2 (8.5-10.1) mg/dl Magnesium 1.8 (1.7-2.4) mg/dl Random Vancomycin 13.7 (10-20) mcg/ml 06/14/22 Range/Units 20:25 WBC (4.8-10.8) K/ul RBC (3.93-5.22) M/uL Hgb (12.0-16.0) g/dl Hct (34.1-44.9) % MCV (80.0-100.0) fL MCH (25.0-34.0) pg MCHC (32.0-36.0) g/dL RDW Std Deviation (36.4-46.3) fL RDW Coeff of Maria [place] Carm[place] (11.5-14.5) % Plt Count (130-400) K/uL MPV (9.4-12.3) fL Immature Gran % (Auto) % Neut % (Auto) % Lymph % (Auto) % [place] % (Auto) % Eos % (Auto) % Baso % (Auto) % Neut # (Auto) (1.4-6.5) K/uL Lymph # (Auto) (1.2-3.4) K/uL [place] # (Auto) (0.24-0.82) K/uL Eos # (Auto) (0-0.50) K/uL Baso # (Auto) (0-0.2) K/uL Immature Gran # (Auto) (0.00-0.02) K/uL Sodium (136-145) mmol/L Potassium (3.5-5.1) mmol/L Chloride (98-107) mmol/L Carbon Dioxide (21-32) mmol/L Anion Gap (3-11) BUN (6-23) mg/dl Creatinine (0.6-1.2) mg/dl Est Cr Clr Drug Dosing ml/min Est GFR ( Amer) ml/min Est GFR (Non-Af Amer) ml/min BUN/Creatinine Ratio (10-20) Glucose (70-99(Fasting)) mg/dl POC Glucose 187 H (70-99) mg/dl Calcium (8.5-10.1) mg/dl Magnesium (1.7-2.4) mg/dl Random Vancomycin (10-20) mcg/ml PG Care Time/CCT Total # of Minutes Spent Total Time Spent with Patient: Total time spent is greater than 50% in coordination of care (as documented) at patient's floor/unit and/or counseling patient: Coding Level of Care Code 31018 Subseq Hosp Care Lvl 3 Diagnoses Ulcer of left great toe due to diabetes mellitus E11.621; L97.529 Cellulitis of left foot L03.116 Diabetes mellitus type 2, uncontrolled E11.65 Nausea R11.0 MRSA (methicillin resistant staph aureus) culture positive Z22.322 PAD (peripheral artery disease) I73.9 Anxiety F41.9 Depression F32.9 Diabetic peripheral neuropathy E11.42 Chronic pain syndrome G89.4 Poor venous access I87.8
[2022-06-15] MEDS: VANCOMYCIN HCL 1,750 MG in SODIUM CHLORIDE 0.9% 500 ML IV SCH ×2 (08:14→19:41)
[2022-06-15] MEDS: INSULIN ASPART PER UNIT SC SCH ×4 (08:20→21:42)
[2022-06-15] MEDS: CLOPIDOGREL BISULFATE 75 MG TAB PO SCH (08:36)
[2022-06-15] MEDS: hydrOXYzine HCl 25 MG TAB PO SCH ×2 (08:36→19:51)
[2022-06-15] MEDS: MULTIVITAMIN TAB PO SCH (08:36)
[2022-06-15] MEDS: amLODIPine BESYLATE 5 MG TAB PO SCH (08:36)
[2022-06-15] MEDS: ASPIRIN 81 MG ECTAB PO SCH (08:36)
[2022-06-15] MEDS: METOPROLOL SUCC 50MG EXT REL TAB PO SCH (08:36)
[2022-06-15] MEDS: PREGABALIN 75 MG CAP PO SCH ×2 (08:37→19:44)
[2022-06-15] MEDS: ENOXAPARIN INJ 40 MG/0.4 ML SYR SQ SCH (08:37)
[2022-06-15 08:41] LABS: Basophils # (auto) 0.07 K/uL (0-0.2); Basophils % (auto) 0.7 %; Eosinophils # (auto) 0.51 K/uL (0-0.50); Hematocrit (blood only) 34.9 % (34.1-44.9); Hemoglobin 11.3 g/dl (12.0-16.0); Immature Granulocytes # (auto) 0.04 K/uL (0.00-0.02); Immature Granulocytes % (auto) 0.4 %; Lymphocytes # (auto) 1.65 K/uL (1.2-3.4); Lymphocytes % (auto) 16.1 %; Mean Corpuscular Hemoglobin 26.8 pg (25.0-34.0); Mean Corpuscular Hgb Conc 32.4 g/dL (32.0-36.0); Mean Corpuscular Volume 82.9 fL (80.0-100.0); Mean Platelet Volume 10.5 fL (9.4-12.3); Monocytes % (auto) 9.7 %; Neutrophils # (auto) 7.01 K/uL (1.4-6.5); Neutrophils % (auto) 68.1 %; Platelet Count 290 K/uL (130-400); RDW Coefficient of Variation 16.2 % (11.5-14.5); Red Blood Count 4.21 M/uL (3.93-5.22); White Blood Count 10.28 K/ul (4.8-10.8)
[2022-06-15] MEDS: LANTUS PER UNIT CHARGE SQ SCH (08:44)
[2022-06-15] MEDS: PANTOprazole 40 MG in SYRINGE 0 ML IV SCH ×2 (08:45→19:41)
[2022-06-15 08:50] LABS: BUN Creatinine Ratio 23.1 (10-20); Calcium 9.2 mg/dl (8.5-10.1); Creatinine Clr Calc Pharmacy 146.5 ml/min; Est GFR (African American) 134.2 ml/min; Est GFR (Non-African American) 115.8 ml/min; Magnesium 1.8 mg/dl (1.7-2.4); Potassium 3.6 mmol/L (3.5-5.1)
--- NOTE | 2022-06-15 09:05 | Pharmacy Report ---
Pharmacy PK ABX Note - Date of Service June 15, 2022 - Assessment and Plan Assessment * 57 year old F \ordered vancomycin for treatment of left foot cellulitis, osteitis, and possible early osteomyelitis. * Patient well-known to pharmacy PK service with extensive history of MRSA infections. * She is now POD 2 s/p fillet of distal big toe. * Intraoperative cultures remain negative at this time. * Duration of therapy planned for one week, likely measured from the surgery da te of 06/13 (if all the infected margins were removed). Last dose would therefore be 11/8 AM * SCr stable and at/near baseline Plan Vancomycin * Current regimen: 1750 mg IV every 12 hours * Random level obtained 06/15 resulted as 13.7 mcg/mL. This is predicted to achieve target AUC/CELSO of 400-600 mg/L.hr * Predicted AUC at steady state: 518 mg/L.hr * No further levels needed unless a change in clinical status/renal function occurs, or duration is extended beyond the plan above Pharmacy will continue to follow and will adjust dose/frequency as necessary. Thank you. Pharmacy has transitioned to AUC monitoring for vancomycin. AUC/CELSO is the preferred PK/PD target and is associated with decreased risk of nephrotoxicity compared to traditional trough targets.
[2022-06-15] MEDS ORDERED: hydrOXYzine HCl 10 MG TAB PO ONE (10:56)
[2022-06-15] MEDS: ONDANSETRON INJ 2 MG/ML 2 ML VIAL IV PRN ×2 (11:13→19:47)
[2022-06-15] MEDS: ADVANCED PROBIOTIC 1250 MG CAPSULE PO SCH (17:43)
[2022-06-15] MEDS: CYCLOBENZAPRINE HCL 10 MG TAB PO PRN (17:46)
[2022-06-15] MEDS: SERTRALINE HCL 50 MG TABLET PO SCH (19:51)
[2022-06-15] MEDS: rOPINIRole HCL 2 MG TABLET PO SCH (19:51)
[2022-06-15] MEDS: ZOLPIDEM TARTRATE 10 MG TAB PO PRN (21:16)
--- NOTE | 2022-06-15 22:14 | Orthopedic Progress Note ---
Date of Service June 15, 2022 Assessment & Plan (1) Ulcer of left great toe due to diabetes mellitus: Plan: Patient seen, evaluated, and treated. Patient is status post left foot surgery Day #2. Patient will keep dressing, clean, dry, and intact. This was reviewed. Patient is weight bearing to left foot in surgical shoe. Patient ok for discharge per podiatry. She will continue to follow up in office as out Patient for continued care. Admission and Anticipated Discharge Date Admission Date: June 06, 2022 Subjective Patient status post day #2 Left foot surgery. Patient resting comfortably. She notes no complaints. Dressing is clean, dry, intact. Physical Exam Constitutional: WD/WN, vitals as above ENMT: external ear and nose normal, oropharynx normal Neck: trachea midline, no thyromegaly Psychiatric: A+Ox3, euthymic affect Results & Data ([facility]) Vital Signs (Past 12 Hours) Vital Signs Temp Pulse Pulse Resp BP Pulse Ox O2 Del Method 06/15/22 18:58 36.9 C 69 20 179/73 H 94 Room Air 06/15/22 16:04 79 06/15/22 15:19 36.7 C 67 18 129/66 91 Room Air 06/15/22 10:32 36.7 C 82 18 135/74 94 Room Air
[2022-06-16] MEDS: HYDROmorphone INJ 0.5 MG/0.5 ML SYR IV PRN ×11 (00:08→23:59)
[2022-06-16] MEDS: PROMETHAZINE HCL 12.5 MG in SODIUM CHLORIDE 0.9% 50 ML IV PRN (01:04)
[2022-06-16] MEDS: oxyCODONE/ACETAMINOPHEN 10-325 TAB PO PRN (05:09)
[2022-06-16 06:26] LABS: Hematocrit (blood only) 33.3 % (34.1-44.9); Hemoglobin 10.8 g/dl (12.0-16.0); Mean Corpuscular Hemoglobin 26.7 pg (25.0-34.0); Mean Corpuscular Hgb Conc 32.4 g/dL (32.0-36.0); Mean Corpuscular Volume 82.2 fL (80.0-100.0); Mean Platelet Volume 9.8 fL (9.4-12.3); Platelet Count 285 K/uL (130-400); RDW Coefficient of Variation 15.8 % (11.5-14.5); RDW Standard Deviation 47.8 fL (36.4-46.3); Red Blood Count 4.05 M/uL (3.93-5.22); White Blood Count 9.52 K/ul (4.8-10.8)
[2022-06-16 06:48] LABS: BUN Creatinine Ratio 18.5 (10-20); Calcium 9.2 mg/dl (8.5-10.1); Creatinine Clr Calc Pharmacy 105.7 ml/min; Est GFR (African American) 120.6 ml/min; Magnesium 1.7 mg/dl (1.7-2.4); Potassium 3.8 mmol/L (3.5-5.1)
--- NOTE | 2022-06-16 07:57 | Hospitalist Progress Note ---
Date of Service June 16, 2022 Assessment & Plan (1) Ulcer of left great toe due to diabetes mellitus: Plan: Patient seen by PCP ANIMAL PHYSIOLOGIST with erythema/streaking up leg from 1st digit LLE, started 3 days ANIMAL PHYSIOLOGIST and sent to ER for admission. Initially placed on Ceftriaxone 2gm IV/Doxycycline 100mg MRI with : IMPRESSION: 1. Suggested cellulitis of the forefoot, most pronounced within the great toe with probable associated paronychia. No abscess. 2. Minimal marrow edema of the first distal phalangeal tuft with preserved T1 signal suggestive of osteitis. Early osteomyelitis could appear similarly. No osseous erosions identified. Podiatry consulted, Dr Noriega Poor vascular access/PAD at baseline --> Dr Fuentes consulted last week, patient underwent placement of castro catheter R IJ POD #3 s/p Fillet of left distal great toe with Dr Noriega 06/13 for ulcer of left great toe due to diabetes mellitus Pathology pending Per Dr Noriega, clear margins Continues on Vancomycin IV -- hx frankie syndrome, slowly administer --> Will need 1 week IV vancomycin from surgery date per Dr Noriega, CM assisting to arrange. Has Castro catheter as above. End date for Vancomycin 06/20 WBC 13.7k--> 9.5k, afebrile Pain control --> Dilaudid 0.5mg IV prn -- discussed with patient given increased pain/HTN from pain improved with control this morning and acute pain control inpatient --> increased to 1mg as needed, also increased her lyrica to TID dosing for neuropathic type pain to see if improvement in pain control Increased vistaril to 25mg BID to help with anxiety/sleep --> also discussed with patient about increasing her zoloft to 50mg, agreeable and this was changed for evening 06/16 PT/OT consulted -- discussed with Dr Noriega, surgical shoe provided for patient. WB to left foot in surgical shoe --> also rec patient use her CAM boot provided last admission when someone able to bring this in for her Will aslo need DFC in follow up as well as wound clinic, which she has denied in the past but seemed to be agreeable during our encounter PT consult not yet done, CM following as hoping for possible d/c to rehab at [facility] for continued wound care/monitoring/rehab given repeated amputation and assistance with rehabilitation/strengthening Downgraded to med/surg given HR SNR in 60-70s for past 24 hours (2) Cellulitis of left foot: Plan: improving with treatment as outlined patient reported ANIMAL PHYSIOLOGIST she had erythema streaking up her leg into her barbosa (3) Diabetes mellitus type 2, uncontrolled: Plan: A1c 8.7 in March Typically on glargine 20u HS, lispro 5u TIDM at home -- held while inpatient BSG AC/HS, ISS while inpatient Currently on ISS, glargine 10u QAM BSGs acceptable -- monitor (4) Nausea: Plan: Improving, suspect component of pain as well as anxiety contributing, also could be element of gastroparesis from DM, however patient moving her bowels Zofran PRN (5) MRSA (methicillin resistant staph aureus) culture positive: Plan: hx of from L foot prior cx in February - remains on vancomycin as above (6) PAD (peripheral artery disease): Plan: Continue aspirin and clopidogrel quit smoking >1 year ago, does apparently use marijuana vape pens -- will need to ask about medical card (7) Anxiety: Plan: Anxiety/depression continue hydroxyzine, lorazepam, sertraline and zolpidem --> increased Vistaril as above monitor response, REPORTED HELPFUL, WILL CONTINUE (8) Depression: Plan: continue meds as above, does endorse increased anxiety/depression regarding ongoing infections/amputations and fear to end up in BKA as her RLE did this past year reassurance provided, vistaril/pain control as outlined consider increasing her zoloft -- currenrtly 25mg HS--> AGREEABLE TO INCREASE TO 50MG, REC TITRATE UP OUTPATIENT monitor (9) Diabetic peripheral neuropathy: Plan: Continue pregabalin and ropinirole check B12 w/ AM labs-- LOW NORMAL, REPLACEMENT ORDERED Consider increasing her pregabalin for neuropathic type pain? --> INCREASED TO TID TODAY TO SEE IF IMPROVEMENT IN PAIN --> Also will discuss with patient if she has ever tried cymbalta in the past, may help with mood as well. (10) Chronic pain syndrome: Plan: As above, increased pain control (11) Poor venous access: Plan: S/P MIKAELA W/ DR FUENTES will need flushes once completed abx monitor for any infection -- none currently (12) B12 deficiency: Plan: b12 checked given DM/neuropathy/neuropathic pain --> B12 low normal 261, replacement ordered would continue at d/c Plan continued inpatient stay hopeful for rehab, may need to complete peer-peer for [facility] tomorrow. CM to let me know PT/OT consulted, WB as tolerated with surgical shoe outpt podiatry/DFC/wound care follow up Admission and Anticipated Discharge Date Admission Date: June 06, 2022 Supervising Physician Co-Signing Physician Notes CHAVEZ Supervision Note: I did not personally see or examine the patient today, but I verified all tanner points of CHAVEZ Luther's assessment and plan with the following exceptions/additions: None Subjective evaluated this morning pain still to her foot, worsened/not controlled with ordered regimen. will increased diluadid to 1mg as needed, order 0.5mg x 1 now dose. no fever/chills, but does endorse feeling wiped out, tearful about amputation an d her overall course over the past year. discussed rehab -- she is agreeable, stated CM stated possible bed on Sunday. Also discussed increasing zoloft given mood, patient agreeable. She did endorse the vistaril taking the edge off. No fever/chills. Does have some R shoulder discomfort from movement with the arm due to irritation from castro. No decreased ROM. Questions/concerns addressed at this time. Depending on pain levels tomorrow, consider increasing the pregabalin. Possible later today, given nerve type pain/B12 also low and replacement ordered. Review of Systems Review of Systems: All systems reviewed & are unremarkable except as noted in HPI & below Physical Exam Physical Exam: General: chronically ill appearing female sitting up in bed, NAD, just medicated for pain HEENT: head normocephalic, atraumatic, mmm, poor dentition, trachea midline without deviation Chest: castro catheter to R IJ, Tegaderm in place, smaller excoriations/scratch pickering to anterior of dressing (reported issues with adhesives in the past as well) -- covered with bandaid Resp: CTAB, diminished in the bases, no w/c, on room air CV: RRR, no m/r/g, no pitting edema GI: +BS, soft/NT MSk/Neuro: moves all extremities, no focal deficit right BKA S/P L great toe amputation, dressing changed by Dr Noriega last evening, (not removed), toes distally with cap refill, toes mobile, able to wiggles no streaking erythema up foot (previously reported streaking) Psych: AOx3, tearful, cooperative with care Results & Data Results & [facility] ([facility]) Vital Signs (Past 12 Hours) Vital Signs Temp Pulse Pulse Resp BP Pulse Ox Pulse Ox 06/16/22 07:26 78 06/16/22 01:36 70 06/16/22 00:00 95 06/15/22 23:23 06/15/22 22:45 36.7 C 71 20 157/74 H 96 O2 Del Method O2 Del Method 06/16/22 07:26 06/16/22 01:36 06/16/22 00:00 Room Air 06/15/22 23:23 Room Air 06/15/22 22:45 Room Air Laboratory Results 06/16/22 06/16/22 06/16/22 Range/Units 16:09 11:31 07:11 WBC (4.8-10.8) K/ul RBC (3.93-5.22) M/uL Hgb (12.0-16.0) g/dl Hct (34.1-44.9) % MCV (80.0-100.0) fL MCH (25.0-34.0) pg MCHC (32.0-36.0) g/dL RDW Std Deviation (36.4-46.3) fL RDW Coeff of Maria Del Carmen (11.5-14.5) % Plt Count (130-400) K/uL MPV (9.4-12.3) fL Sodium (136-145) mmol/L Potassium (3.5-5.1) mmol/L Chloride (98-107) mmol/L Carbon Dioxide (21-32) mmol/L Anion Gap (3-11) BUN (6-23) mg/dl Creatinine (0.6-1.2) mg/dl Est Cr Clr Drug Dosing ml/min Est GFR ( Amer) ml/min Est GFR (Non-Af Amer) ml/min BUN/Creatinine Ratio (10-20) Glucose (70-99(Fasting)) mg/dl POC Glucose 149 H 105 H 125 H (70-99) mg/dl Calcium (8.5-10.1) mg/dl Magnesium (1.7-2.4) mg/dl Vitamin B12 (180-914) pg/ml 06/16/22 06/16/22 06/16/22 Range/Units 05:54 05:54 05:54 WBC 9.52 (4.8-10.8) K/ul RBC 4.05 (3.93-5.22) M/uL Hgb 10.8 L (12.0-16.0) g/dl Hct 33.3 L (34.1-44.9) % MCV 82.2 (80.0-100.0) fL MCH 26.7 (25.0-34.0) pg MCHC 32.4 (32.0-36.0) g/dL RDW Std Deviation 47.8 H (36.4-46.3) fL RDW Coeff of Maria Del Carmen 15.8 H (11.5-14.5) % Plt Count 285 (130-400) K/uL MPV 9.8 (9.4-12.3) fL Sodium 139 (136-145) mmol/L Potassium 3.8 (3.5-5.1) mmol/L Chloride 102 (98-107) mmol/L Carbon Dioxide 32 (21-32) mmol/L Anion Gap 5 (3-11) BUN 10 (6-23) mg/dl Creatinine 0.54 L (0.6-1.2) mg/dl Est Cr Clr Drug Dosing 105.7 ml/min Est GFR ( Amer) 120.6 ml/min Est GFR (Non-Af Amer) 104.0 ml/min BUN/Creatinine Ratio 18.5 (10-20) Glucose 120 H (70-99(Fasting)) mg/dl POC Glucose (70-99) mg/dl Calcium 9.2 (8.5-10.1) mg/dl Magnesium 1.7 (1.7-2.4) mg/dl Vitamin B12 261 (180-914) pg/ml 06/15/22 Range/Units 20:06 WBC (4.8-10.8) K/ul RBC (3.93-5.22) M/uL Hgb (12.0-16.0) g/dl Hct (34.1-44.9) % MCV (80.0-100.0) fL MCH (25.0-34.0) pg MCHC (32.0-36.0) g/dL RDW Std Deviation (36.4-46.3) fL RDW Coeff of Maria Del Carmen (11.5-14.5) % Plt Count (130-400) K/uL MPV (9.4-12.3) fL Sodium (136-145) mmol/L Potassium (3.5-5.1) mmol/L Chloride (98-107) mmol/L Carbon Dioxide (21-32) mmol/L Anion Gap (3-11) BUN (6-23) mg/dl Creatinine (0.6-1.2) mg/dl Est Cr Clr Drug Dosing ml/min Est GFR ( Amer) ml/min Est GFR (Non-Af Amer) ml/min BUN/Creatinine Ratio (10-20) Glucose (70-99(Fasting)) mg/dl POC Glucose 146 H (70-99) mg/dl Calcium (8.5-10.1) mg/dl Magnesium (1.7-2.4) mg/dl Vitamin B12 (180-914) pg/ml PG Care Time/CCT Total # of Minutes Spent Total Time Spent with Patient: Total time spent is greater than 50% in coordination of care (as documented) at patient's floor/unit and/or counseling patient: Coding Level of Care Code 56794 Subseq Hosp Care Lvl 3 Diagnoses Ulcer of left great toe due to diabetes mellitus E11.621; L97.529 Cellulitis of left foot L03.116 Diabetes mellitus type 2, uncontrolled E11.65 Nausea R11.0 MRSA (methicillin resistant staph aureus) culture positive Z22.322 PAD (peripheral artery disease) I73.9 Anxiety F41.9 Depression F32.9 Diabetic peripheral neuropathy E11.42 Chronic pain syndrome G89.4 Poor venous access I87.8 B12 deficiency E53.8
[2022-06-16] MEDS: ASPIRIN 81 MG ECTAB PO SCH (08:09)
[2022-06-16] MEDS: MULTIVITAMIN TAB PO SCH (08:10)
[2022-06-16] MEDS: amLODIPine BESYLATE 5 MG TAB PO SCH (08:10)
[2022-06-16] MEDS: PREGABALIN 75 MG CAP PO SCH ×3 (08:10→20:21)
[2022-06-16] MEDS: LORazepam 1 MG TAB PO PRN ×2 (08:10→21:27)
[2022-06-16] MEDS: hydrOXYzine HCl 25 MG TAB PO SCH ×2 (08:11→20:22)
[2022-06-16] MEDS: CLOPIDOGREL BISULFATE 75 MG TAB PO SCH (08:11)
[2022-06-16] MEDS: METOPROLOL SUCC 50MG EXT REL TAB PO SCH (08:11)
[2022-06-16] MEDS: ADVANCED PROBIOTIC 1250 MG CAPSULE PO SCH (08:12)
[2022-06-16] MEDS: PANTOprazole 40 MG in SYRINGE 0 ML IV SCH ×2 (08:13→20:22)
[2022-06-16] MEDS: VANCOMYCIN HCL 1,750 MG in SODIUM CHLORIDE 0.9% 500 ML IV SCH ×2 (08:14→20:33)
[2022-06-16] MEDS: INSULIN ASPART PER UNIT SC SCH ×4 (08:31→21:25)
[2022-06-16] MEDS: LANTUS PER UNIT CHARGE SQ SCH (08:31)
[2022-06-16] MEDS: ENOXAPARIN INJ 40 MG/0.4 ML SYR SQ SCH (08:35)
[2022-06-16] MEDS: CYANOCOBALAMIN (B-12) 500 MCG TABLET PO SCH (08:38)
[2022-06-16] MEDS ORDERED: HYDROmorphone INJ 0.5 MG/0.5 ML SYR IV STA (09:44)
[2022-06-16] MEDS: ONDANSETRON INJ 2 MG/ML 2 ML VIAL IV PRN ×2 (11:36→20:21)
[2022-06-16] MEDS: ZOLPIDEM TARTRATE 10 MG TAB PO PRN (20:21)
[2022-06-16] MEDS: rOPINIRole HCL 2 MG TABLET PO SCH (20:22)
[2022-06-16] MEDS: SERTRALINE HCL 50 MG TABLET PO SCH (20:22)
[2022-06-17] MEDS: HYDROmorphone INJ 0.5 MG/0.5 ML SYR IV PRN ×9 (01:59→22:49)
[2022-06-17] MEDS: ONDANSETRON INJ 2 MG/ML 2 ML VIAL IV PRN ×3 (04:47→19:41)
[2022-06-17] MEDS: oxyCODONE/ACETAMINOPHEN 10-325 TAB PO PRN ×2 (05:12→09:51)
[2022-06-17 07:48] LABS: Hematocrit (blood only) 30.8 % (34.1-44.9); Hemoglobin 9.9 g/dl (12.0-16.0); Mean Corpuscular Hemoglobin 26.6 pg (25.0-34.0); Mean Corpuscular Hgb Conc 32.1 g/dL (32.0-36.0); Mean Corpuscular Volume 82.8 fL (80.0-100.0); Mean Platelet Volume 10.2 fL (9.4-12.3); Platelet Count 288 K/uL (130-400); RDW Coefficient of Variation 15.9 % (11.5-14.5); RDW Standard Deviation 47.8 fL (36.4-46.3); Red Blood Count 3.72 M/uL (3.93-5.22); White Blood Count 9.66 K/ul (4.8-10.8)
[2022-06-17] MEDS: VANCOMYCIN HCL 1,750 MG in SODIUM CHLORIDE 0.9% 500 ML IV SCH ×2 (08:30→20:17)
[2022-06-17] MEDS: ASPIRIN 81 MG ECTAB PO SCH (08:36)
[2022-06-17] MEDS: CYANOCOBALAMIN (B-12) 500 MCG TABLET PO SCH (08:36)
[2022-06-17] MEDS: CLOPIDOGREL BISULFATE 75 MG TAB PO SCH (08:36)
[2022-06-17] MEDS: amLODIPine BESYLATE 5 MG TAB PO SCH (08:36)
[2022-06-17] MEDS: hydrOXYzine HCl 25 MG TAB PO SCH ×2 (08:36→20:36)
[2022-06-17] MEDS: MULTIVITAMIN TAB PO SCH (08:37)
[2022-06-17] MEDS: METOPROLOL SUCC 50MG EXT REL TAB PO SCH (08:37)
[2022-06-17] MEDS: ADVANCED PROBIOTIC 1250 MG CAPSULE PO SCH (08:37)
--- NOTE | 2022-06-17 08:37 | Hospitalist Progress Note ---
Date of Service June 17, 2022 Assessment & Plan (1) Ulcer of left great toe due to diabetes mellitus: Plan: Patient seen by PCP OUTER DIAMETER GRINDER TOOL with erythema/streaking up leg from 1st digit LLE, started 3 days OUTER DIAMETER GRINDER TOOL and sent to ER for admission. Initially placed on Ceftriaxone 2gm IV/Doxycycline 100mg MRI IMPRESSION: 1. Suggested cellulitis of the forefoot, most pronounced within the great toe with probable associated paronychia. No abscess. 2. Minimal marrow edema of the first distal phalangeal tuft with preserved T1 signal suggestive of osteitis. Early osteomyelitis could appear similarly. No osseous erosions identified. Poor vascular access/PAD at baseline --> Dr Monet consulted last week, patient underwent placement of castro catheter R IJ --> will need flushes once completed abx Dr Noriega consulted from podiatry POD #4 s/p Fillet of left distal great toe with Dr Noriega 06/13 for ulcer of left great toe due to diabetes mellitus Pathology pending --> underlying bone appears viable and changes of osteomyelitis are NOT seen Vancomycin IV -- slowly admin given hx MARTHA --> abx to complete after dose 06/20 WBC wnl, afebrile Pain control -- > believe was tapered too quickly prior, possible withdrawal. --> also takes MMJ at home, likely why difficult to control pain here. Discussed for further hospitalizations that everythine except the vaporized can be brought/lock box and utilized for additional control --> continue Lyrica 75mg TID (was BID) -- titrate as needed -Dilaudid 1mg q2h prn, educated to limit to as needed but will only be IV inpatient. Titrating up neuropathic agents as tolerating. Also started B12 supplementation Vit D also low -- PO replacement ordered and would continue at d/c. Also discussed MVI Provided surgical shoe -- not great fit. Told by orthotics prior fit for CAM boot --> clarke said arguement with gentleman fitting last time and then didn't have at d/c. Will reconsult as will NEEED for home PT/OT consulted F/u wound care needing to be arranged by navigator on Sunday (2) Cellulitis of left foot: Plan: improving with treatment as outlined patient reported OUTER DIAMETER GRINDER TOOL she had erythema streaking up her leg into her barbosa (3) Diabetes mellitus type 2, uncontrolled: Plan: A1c 8.7 in March Typically on glargine 20u HS, lispro 5u TIDM at home -- held while inpatient BSG AC/HS, ISS while inpatient Currently on ISS, glargine 10u QAM BSGs acceptable -- monitor (4) Nausea: Plan: Improving, suspect component of pain as well as anxiety contributing, also could be element of gastroparesis from DM, however patient moving her bowels Zofran PRN (5) MRSA (methicillin resistant staph aureus) culture positive: Plan: hx of from L foot prior cx in February - remains on vancomycin as above (6) PAD (peripheral artery disease): Plan: Continue aspirin and clopidogrel quit smoking >1 year ago, does apparently use marijuana vape pens -- will need to ask about medical card --> SEE ABOVE, MMJ CARD, uses tinctures, RSO, topicall creams for additinal pain relief (7) Anxiety: Plan: Anxiety/depression continue hydroxyzine, lorazepam, sertraline and zolpidem --> increased Vistaril as above, REPORTED IMPROVEMENT IN SLEEP OVERNIGHT 06/16- 06/17 Continue (8) Depression: Plan: continue meds as above, does endorse increased anxiety/depression regarding ongoing infections/amputations and fear to end up in BKA as her RLE did this past year reassurance provided, vistaril/pain control as outlined INCREASED ZOLOFT 50mg __ continue at d/c and titrate up outpatient (9) Diabetic peripheral neuropathy: Plan: Continue pregabalin and ropinirole check B12 w/ AM labs-- LOW NORMAL, REPLACEMENT ORDERED Consider increasing her pregabalin for neuropathic type pain? --> INCREASED TO TID 06/16 and appears more comfortable --> increase further as tolerated but note using topical creams MMJ at home as well. ?cymbalta (10) Chronic pain syndrome: Plan: As above (11) Poor venous access: Plan: S/P MIKAELA W/ DR MONET will need flushes once completed abx monitor for any infection -- none currently (12) B12 deficiency: Plan: b12 checked given DM/neuropathy/neuropathic pain --> B12 low normal 261, replacement ordered would continue at d/c (13) Shoulder pain: Plan: reported, ?frozen shoulder no bony step off ekg obtained, NSR without ST elevation xray to be obtained (14) Vitamin D deficiency: Plan: checked, low -- replacement ordered and continue at d/c Plan continued inpatient stay possible rehab vs home with services. CM following Vanco IV through 06/20 Admission and Anticipated Discharge Date Admission Date: June 06, 2022 Supervising Physician Co-Signing Physician Notes PA Supervision Note: I did not personally see or examine the patient today, but I verified all tanner points of CHAVEZ Luther's assessment and plan with the following exceptions/additions: None Subjective eval this afternoon appears much more comfortable, discussed continue increased lyrica, possible titration continues on the dilaudid lengthy discussion with patient about pain control -- patient has MMJ card at home and uses the tincture/creams/RSO oil at home for pain control but was never told we can have that brought in to the hospital and lock box/use in patient and likely why difficult to control pain having some shoulder pain/irritation from the castro, had issues with prior adhesive, told allergic and this was changed and looks much better castro site looks great-- she is wondering when this comes out also never told that stays in, but discussed given prior access problems would continue and need flushes at home and benefit if issues in future but if no issues can f/u vascular for removal outpatient no fever/chills, no further abd discomfort/nausea improved no further diarrhea for [facility], [facility] [employer], worried about [place] too far away for her agreeable to wound center follow up -- was told prior provider never set up when asked about CAM boot, she states someone came to fit last time but had argument and she never actually got one at home. will re-consult, as therapy came to evaluate but surgical shoe without proper fit due to dressing. questions/concerns addressed. Review of Systems Review of Systems: All systems reviewed & are unremarkable except as noted in HPI & below Physical Exam Physical Exam: General: chronically ill appearing female sitting up in bed, NAD, appears much more comfortable HEENT: head normocephalic, atraumatic, mmm, poor dentition, trachea midline without deviation Chest: castro catheter to R IJ, Tegaderm in place, smaller excoriations/scratch pickering to anterior of dressing (reported issues with adhesives in the past as well) -- look much better Resp: CTAB, no w/c, on room air CV: RRR, no m/r/g, no pitting edema GI: +BS, soft/NT MSk/Neuro: moves all extremities, no focal deficit right BKA S/P L great toe amputation, dressing c/d/i, covered with coban, +neuropathy, +cap refill <3 seconds no erythema/streaking or drainage noted Psych: AOx3, cooperative Results & Data Results & Data ([facility]) Vital Signs (Past 12 Hours) Vital Signs Temp Pulse Resp BP Pulse Ox O2 Del Method 06/17/22 07:33 36.9 C 74 14 147/75 H 96 Room Air Laboratory Results 06/17/22 06/17/22 06/17/22 Range/Units 17:09 12:09 08:22 WBC (4.8-10.8) K/ul RBC (3.93-5.22) M/uL Hgb (12.0-16.0) g/dl Hct (34.1-44.9) % MCV (80.0-100.0) fL MCH (25.0-34.0) pg MCHC (32.0-36.0) g/dL RDW Std Deviation (36.4-46.3) fL RDW Coeff of Maria Del Carmen (11.5-14.5) % Plt Count (130-400) K/uL MPV (9.4-12.3) fL Sodium (136-145) mmol/L Potassium (3.5-5.1) mmol/L Chloride (98-107) mmol/L Carbon Dioxide (21-32) mmol/L Anion Gap (3-11) BUN (6-23) mg/dl Creatinine (0.6-1.2) mg/dl Est Cr Clr Drug Dosing ml/min Est GFR ( Amer) ml/min Est GFR (Non-Af Amer) ml/min BUN/Creatinine Ratio (10-20) Glucose (70-99(Fasting)) mg/dl POC Glucose 110 H 121 H 116 H (70-99) mg/dl Calcium (8.5-10.1) mg/dl Magnesium (1.7-2.4) mg/dl 25-OH Vitamin D Total (30-100) ng/ml 06/17/22 06/17/2222 Range/Units 07:25 07:25 07:25 WBC 9.66 (4.8-10.8) K/ul RBC 3.72 L (3.93-5.22) M/uL Hgb 9.9 L (12.0-16.0) g/dl Hct 30.8 L (34.1-44.9) % MCV 82.8 (80.0-100.0) fL MCH 26.6 (25.0-34.0) pg MCHC 32.1 (32.0-36.0) g/dL RDW Std Deviation 47.8 H (36.4-46.3) fL RDW Coeff of Maria Del Carmen 15.9 H (11.5-14.5) % Plt Count 288 (130-400) K/uL MPV 10.2 (9.4-12.3) fL Sodium 139 (136-145) mmol/L Potassium 3.7 (3.5-5.1) mmol/L Chloride 103 (98-107) mmol/L Carbon Dioxide 31 (21-32) mmol/L Anion Gap 5 (3-11) BUN 10 (6-23) mg/dl Creatinine 0.41 L (0.6-1.2) mg/dl Est Cr Clr Drug Dosing 139.2 ml/min Est GFR ( Amer) 132.0 ml/min Est GFR (Non-Af Amer) 113.9 ml/min BUN/Creatinine Ratio 24.4 H (10-20) Glucose 104 H (70-99(Fasting)) mg/dl POC Glucose (70-99) mg/dl Calcium 8.9 (8.5-10.1) mg/dl Magnesium 1.7 (1.7-2.4) mg/dl 25-OH Vitamin D Total 20.3 L (30-100) ng/ml 06/16/22 Range/Units 21:00 WBC (4.8-10.8) K/ul RBC (3.93-5.22) M/uL Hgb (12.0-16.0) g/dl Hct (34.1-44.9) % MCV (80.0-100.0) fL MCH (25.0-34.0) pg MCHC (32.0-36.0) g/dL RDW Std Deviation (36.4-46.3) fL RDW Coeff of Maria Del Carmen (11.5-14.5) % Plt Count (130-400) K/uL MPV (9.4-12.3) fL Sodium (136-145) mmol/L Potassium (3.5-5.1) mmol/L Chloride (98-107) mmol/L Carbon Dioxide (21-32) mmol/L Anion Gap (3-11) BUN (6-23) mg/dl Creatinine (0.6-1.2) mg/dl Est Cr Clr Drug Dosing ml/min Est GFR ( Amer) ml/min Est GFR (Non-Af Amer) ml/min BUN/Creatinine Ratio (10-20) Glucose (70-99(Fasting)) mg/dl POC Glucose 173 H (70-99) mg/dl Calcium (8.5-10.1) mg/dl Magnesium (1.7-2.4) mg/dl 25-OH Vitamin D Total (30-100) ng/ml PG Care Time/CCT Total # of Minutes Spent Total Time Spent with Patient: Total time spent is greater than 50% in coordination of care (as documented) at patient's floor/unit and/or counseling patient: Coding Level of Care Code 68850 Subseq Hosp Care Lvl 3 Diagnoses Ulcer of left great toe due to diabetes mellitus E11.621; L97.529 Cellulitis of left foot L03.116 Diabetes mellitus type 2, uncontrolled E11.65 Nausea R11.0 MRSA (methicillin resistant staph aureus) culture positive Z22.322 PAD (peripheral artery disease) I73.9 Anxiety F41.9 Depression F32.9 Diabetic peripheral neuropathy E11.42 Chronic pain syndrome G89.4 Poor venous access I87.8 B12 deficiency E53.8 Shoulder pain M25.519 Vitamin D deficiency E55.9
[2022-06-17] MEDS: LANTUS PER UNIT CHARGE SQ SCH (08:38)
[2022-06-17] MEDS: ENOXAPARIN INJ 40 MG/0.4 ML SYR SQ SCH (08:38)
[2022-06-17] MEDS: PREGABALIN 75 MG CAP PO SCH ×2 (08:39→13:12)
[2022-06-17] MEDS: INSULIN ASPART PER UNIT SC SCH ×4 (08:43→21:35)
[2022-06-17 08:48] LABS: BUN Creatinine Ratio 24.4 (10-20); Calcium 8.9 mg/dl (8.5-10.1); Creatinine Clr Calc Pharmacy 139.2 ml/min; Est GFR (Non-African American) 113.9 ml/min; Magnesium 1.7 mg/dl (1.7-2.4); Potassium 3.7 mmol/L (3.5-5.1)
[2022-06-17] MEDS: PANTOprazole 40 MG in SYRINGE 0 ML IV SCH ×2 (08:50→20:30)
[2022-06-17] MEDS: CHOLECALCIFEROL 1,000 UNITS 25 MCG TAB PO SCH (10:52)
[2022-06-17] MEDS: LORazepam 1 MG TAB PO PRN ×2 (13:12→23:22)
--- NOTE | 2022-06-17 13:27 | Electrocardiogram Report ---
Test Reason : Blood Pressure : / mmHG Vent. Rate : 071 BPM Atrial Rate : 071 BPM P-R Int : 150 ms QRS Dur : 090 ms QT Int : 374 ms P-R-T Axes : 030 038 049 degrees QTc Int : 406 ms Normal sinus rhythm Normal ECG When compared with ECG of 13-JUN-2022 21:51, No significant change was found Confirmed by Peter Galarza [id number] on 06/17/2022 1:27:12 PM Referred By: REFERRED SELF Confirmed By:Peter Galarza
--- NOTE | 2022-06-17 16:33 | XRay Report ---
XR chest 1V portable CLINICAL HISTORY: R shoulder pain TECHNIQUE: Single frontal radiograph of the chest was obtained. Comparison: Comparison is made to chest radiograph 04/27/2022 FINDINGS: A right venous catheter terminates in the mid SVC. The cardiomediastinal silhouette is normal. The gaurav ngs are clear. No evidence of pleural effusion or pneumothorax. IMPRESSION: No acute chest disease. Previously noted pleural effusions are no longer seen. ACT 112: Negative or not required by law. Electronically signed by: Neil Mendieta M.D. 06/17/2022 4:32 PM
[2022-06-17] MEDS: PREGABALIN 100 MG CAP PO SCH (20:36)
[2022-06-17] MEDS: ZOLPIDEM TARTRATE 10 MG TAB PO PRN (20:36)
[2022-06-17] MEDS: SERTRALINE HCL 50 MG TABLET PO SCH (20:37)
[2022-06-17] MEDS: rOPINIRole HCL 2 MG TABLET PO SCH (20:37)
--- NOTE | 2022-06-17 23:58 | XRay Report ---
XR shoulder RT min 2V routine CLINICAL HISTORY: R shoulder pain TECHNIQUE: 3 views of the right shoulder were obtained. Comparison: Comparison is made to chest radiograph 06/17/2022 FINDINGS: There is no evidence of an acute fracture. Joint spaces are well-preserved. Calcific tendinopathy is seen. Incidental note is made of a right venous catheter. IMPRESSION: No evidence of acute osseous injury. ACT 112: Negative or not required by law. Electronically signed by: Neil Mendieta M.D. 06/17/2022 11:57 PM
[2022-06-18] MEDS: ACETAMINOPHEN 325 MG TAB PO PRN (00:41)
[2022-06-18] MEDS: PROMETHAZINE HCL 12.5 MG in SODIUM CHLORIDE 0.9% 50 ML IV PRN (01:00)
[2022-06-18] MEDS: HYDROmorphone INJ 0.5 MG/0.5 ML SYR IV PRN ×12 (01:01→23:55)
[2022-06-18 07:52] LABS: Hematocrit (blood only) 30.8 % (34.1-44.9); Hemoglobin 10.1 g/dl (12.0-16.0); Mean Corpuscular Hemoglobin 26.6 pg (25.0-34.0); Mean Corpuscular Hgb Conc 32.8 g/dL (32.0-36.0); Mean Corpuscular Volume 81.3 fL (80.0-100.0); Mean Platelet Volume 10.1 fL (9.4-12.3); Platelet Count 288 K/uL (130-400); RDW Coefficient of Variation 15.8 % (11.5-14.5); RDW Standard Deviation 47.1 fL (36.4-46.3); Red Blood Count 3.79 M/uL (3.93-5.22); White Blood Count 9.51 K/ul (4.8-10.8)
--- NOTE | 2022-06-18 07:58 | Hospitalist Progress Note ---
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 Initially placed on Ceftriaxone 2gm IV/Doxycycline 100mg Poor vascular access/PAD at baseline --> Dr Fuentes consulted last week, patient underwent placement of castro catheter R IJ--> will need flushes once completed abx MRI IMPRESSION with concerns for minimal marrow edema of first distal phalangeal tuft with preserved T1 signal suggestive of osteitis. Early osteo could appear similarly. Dr Noriega consulted from podiatry POD #5 s/p Fillet of left distal great toe with Dr Noriega 06/13 for ulcer of left great toe due to diabetes mellitus Pathology -underlying bone appears viable and changes of osteomyelitis are NOT seen Vancomycin IV -- slowly admin given hx MARTHA--> abx to complete after dose 06/20 (of note, did tolerate Daptomycin last admission, will change to Dapto moving forward given burning reported still and tolerance of dapto last time) WBC wnl, afebrile Pain control -- > believe was tapered too quickly prior, possible withdrawal with GI symptoms --> also takes MMJ at home, likely why difficult to control pain here. Discussed for further hospitalizations that everything except the vaporized can be brought/lock box and utilized for additional control --> continue Lyrica, but increased to 100mg TID -- reported improvedment in neuropathic pain -- can continue at d/c as well Dilaudid 1mg q2h prn, educated to limit to as needed but will only be IV inpatient. Titrating up neuropathic agents as tolerating. Also started B12 supplementation Vit D also low -- PO replacement ordered and would continue at d/c. Also discussed MVI Provided surgical shoe -- >>not great fit. Told by orthotics prior fit for CAM boot --> Mariana said argument with gentleman fitting last time and then didn't have at d/c. Will reconsult as will NEED for home PT/OT consulted F/u wound care needing to be arranged by navigator on Sunday Of note, patient reported chest discomfort around right shoulder/neck & throat fullness and sore throat --> prior admission in April with COVID/globus pharyngeus, had been started on diltiazem 30mg AC with benefit as well as better blood pressure control --> symptoms not improved earlier w/ GI cocktail before discovering this, will order diltiazem 30mg x1, continue daily. rx for dc as well CT chest obtained given symptoms chest discomfort and reports of concerning nodules needing follow up attention --> CT completed which showed no evidence for pneumonia, Right internal jugular central venous catheter in place. No pneumothorax. Catheter intact. Mild adjacent stranding is likely postprocedural and not unexpected. An infectious process is considered less likely but cannot be excluded by imaging. No fluid collection. Emphysema. No change in subpleural ground glass opacity with cystic changes --> patient without elevation in WBC, remains afebrile. Will monitor but no evidence for infection of the Castro on exam and suspect findings of mild stranding no unexpected after procedure but cannot be excluded by imaging. Iron deficiency anemia -- Injectafer, non-formulary. Would need request, reviewed on Sunday and ordered for Sunday. 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 streaking up her leg into her barbosa, no further evidence (3) Diabetes mellitus type 2, uncontrolled: Plan: A1c 8.7 in March Typically on glargine 20u HS, lispro 5u TIDM at home -- held while inpatient BSG AC/HS, ISS while inpatient Currently on ISS, glargine 10u QAM BSGs acceptable -- monitor (4) Nausea: Plan: Improving, suspect component of pain as well as anxiety contributing, also could be element of gastroparesis from DM, however patient moving her bowels nausea at times, controlled with meds prn given GI cocktail x 1, no improvement no emesis See above, give cardizem 30mg x 1 now, continue 30mg daily for globus pharyngeus/fullness sensation reported (5) MRSA (methicillin resistant staph aureus) culture positive: Plan: Hx of from L foot prior cx in February - remains on vancomycin as above but will complete course with Dapto as outlined (6) PAD (peripheral artery disease): Plan: Continue aspirin and clopidogrel quit smoking >1 year ago, does apparently use marijuana vape pens -- will need to ask about medical card --> SEE ABOVE, MMJ CARD, uses tinctures, RSO, topicall creams for additional pain relief Of note, not on any statin -- last lipid panel in system October 2020 with elevated TRG 272, Chol 174, LDL 89, HDL 31 --> will check lipid panel in AM, pending results rec statin (7) Anxiety: Plan: Anxiety/depression continue hydroxyzine, lorazepam, sertraline and zolpidem --> increased Vistaril as above, REPORTED IMPROVEMENT IN SLEEP OVERNIGHT 06/16- 06/17 --> no sleep last night, increased vistaril to 50mg for tonight Continues on increased lyrica 100mg TID as well --> can increase further if n eeded for additional pain control as well (8) Depression: Plan: continue meds as above, does endorse increased anxiety/depression regarding ongoing infections/amputations and fear to end up in BKA as her RLE did this past year reassurance provided, vistaril/pain control as outlined INCREASED ZOLOFT 50mg --> tolerating well, continue at discharge and strongly recommend increasing outpatient in next 1-2 weeks (9) Diabetic peripheral neuropathy: Plan: Continue pregabalin and ropinirole checked B12 w/ AM labs-- LOW NORMAL, REPLACEMENT ORDERED while inpatient and continue at d/c Continue increased Lyrica as above, MMJ outpatient creams (10) Chronic pain syndrome: Plan: As above (11) Poor venous access: Plan: S/P MIKAELA W/ DR FUENTES will need flushes once completed abx monitor for any infection -- none currently, CT chest w/ findings not unexpected but not excluded. monitor (12) B12 deficiency: Plan: b12 checked given DM/neuropathy/neuropathic pain --> B12 low normal 261, replacement ordered would continue at d/c (13) Shoulder pain: Plan: reported, ?frozen shoulder no bony step off ekg obtained, NSR without ST elevation xray without issue (14) Vitamin D deficiency: Plan: checked, low -- replacement ordered and continue at d/c (15) Anemia: Plan: hx NAGELA, intolerant to Venofer Got injectafor prior stays, nonformulary will need to request/fill out form tomorrow if wanted vs have trial ferrilicit tomorrow. hgb stable for now and will monitor Plan continued inpatient stay Switch to dapto to complete course cardizem 30mg x 1 now, continue daily for globus pharyngeus symptoms (present w/ prior covid infection) check lipid panel in AM/possible start statin (once done w/ Dapto) Orthotics consulted, hopefully able to fit for CAM boot tomorrow for improvement in ambulation with therapy CM following -- [facility], will be inpatient through sunday then home w/ home health services monitor for infection w/ castro -- will need flushes at home once completed abx Admission and Anticipated Discharge Date Admission Date: June 06, 2022 Supervising Physician Co-Signing Physician Notes PA Supervision Note: I did not personally see or examine the patient today, but I verified all tanner points of CHAVEZ Luther's assessment and plan with the following exceptions/additions: None Subjective eval this afternoon reports the nerve pain to her foot as well as hands is improved but pain is a little worse overall in regards to throbbing states she was up all night unable to sleep agreeable to increasing the dose of Vistaril for tonight, can consider additional pain control if it is keeping her up at night. discussed abx completion Sunday, orthotics consult is in place and hopefully will be able to fit her today/tomorrow for safety w/ ambulation given surgical shoes too small/ill fitting. Does have a little bit of a sore throat/reflux. Ordered 1x dose of GI cocktail. No chest pain/shortness of breath. Does have some anterior chest discomfort to the right side in site of her castro catheter. catheter looks good. she states new issue this morning with increased clear liquid drainage from her left check when chewing. also stated nodule in her chest and due for repeat imaging. will look at prior imaging/obtain repeat CT chest given discomforts to r/o any issues with catheter she states the topical Voltaren is helpful for her shoulder wanting to know about changing the dressing -- messaged Dr Noriega -- he will be in later today. Review of Systems Review of Systems: All systems reviewed & are unremarkable except as noted in HPI & below Physical Exam Physical Exam: General: chronically ill appearing female sitting up in bed, NAD HEENT: head normocephalic, atraumatic, mmm, poor dentition, trachea midline without deviation, clear moisture present to hairs above ear and cheek, no opening/erythema, no warmth, appears to be perspiration neck without lymphadenopathy, no edema, no stridor Chest: castro catheter to R IJ, Tegaderm in place, smaller excoriations/scratch pickering to anterior of dressing (reported issues with adhesives in the past as well) -- looks much better Resp: no distress, not tachypneic, good air movement bilaterally, no wheezing/crackles, on room air Cardiac: regular rate, rhythm, no pitting edema, cap refill wnl GI: +BS, soft/NT : no plummer MSk/Neuro: moves all extremities, no slurred speech/focal deficit baseline neuropathy, right BKA (prior incision well healed, no evidence for infection), s/p L hallux amputation, dressing c/d/i, covered with coban, cap refill wnl, no erythema/streaking Psych: AOx3, cooperative, anxious at times Results & Data Results & Data ([facility]) Vital Signs (Past 12 Hours) Vital Signs Temp Pulse Resp BP Pulse Ox O2 Del Method 06/17/22 21:30 37 C 65 16 151/77 H 98 Room Air Laboratory Results 06/18/22 06/18/22 06/18/22 Range/Units 12:16 08:30 07:31 WBC (4.8-10.8) K/ul RBC (3.93-5.22) M/uL Hgb (12.0-16.0) g/dl Hct (34.1-44.9) % MCV (80.0-100.0) fL MCH (25.0-34.0) pg MCHC (32.0-36.0) g/dL RDW Std Deviation (36.4-46.3) fL RDW Coeff of Maria Del Carmen (11.5-14.5) % Plt Count (130-400) K/uL MPV (9.4-12.3) fL Sodium (136-145) mmol/L Potassium (3.5-5.1) mmol/L Chloride (98-107) mmol/L Carbon Dioxide (21-32) mmol/L Anion Gap (3-11) BUN (6-23) mg/dl Creatinine (0.6-1.2) mg/dl Est Cr Clr Drug Dosing ml/min Est GFR ( Amer) ml/min Est GFR (Non-Af Amer) ml/min BUN/Creatinine Ratio (10-20) Glucose (70-99(Fasting)) mg/dl POC Glucose 150 H 122 H (70-99) mg/dl Calcium (8.5-10.1) mg/dl Magnesium (1.7-2.4) mg/dl Iron 28 L (35-150) mcg/dl TIBC 358 (250-450) mcg/dl Unsaturated IBC 330 (155-355) mcg/dl Transferrin % Sat 8 L (15-50) % Ferritin 31.2 (8-388) ng/ml 06/18/22 06/18/22 06/17/22 Range/Units 07:31 07:31 20:54 WBC 9.51 (4.8-10.8) K/ul RBC 3.79 L (3.93-5.22) M/uL Hgb 10.1 L (12.0-16.0) g/dl Hct 30.8 L (34.1-44.9) % MCV 81.3 (80.0-100.0) fL MCH 26.6 (25.0-34.0) pg MCHC 32.8 (32.0-36.0) g/dL RDW Std Deviation 47.1 H (36.4-46.3) fL RDW Coeff of Maria Del Carmen 15.8 H (11.5-14.5) % Plt Count 288 (130-400) K/uL MPV 10.1 (9.4-12.3) fL Sodium 140 (136-145) mmol/L Potassium 4.0 (3.5-5.1) mmol/L Chloride 103 (98-107) mmol/L Carbon Dioxide 33 H (21-32) mmol/L Anion Gap 4 (3-11) BUN 8 (6-23) mg/dl Creatinine 0.44 L (0.6-1.2) mg/dl Est Cr Clr Drug Dosing 129.7 ml/min Est GFR ( Amer) 129.0 ml/min Est GFR (Non-Af Amer) 111.3 ml/min BUN/Creatinine Ratio 18.2 (10-20) Glucose 119 H (70-99(Fasting)) mg/dl POC Glucose 115 H (70-99) mg/dl Calcium 9.1 (8.5-10.1) mg/dl Magnesium 1.7 (1.7-2.4) mg/dl Iron (35-150) mcg/dl TIBC (250-450) mcg/dl Unsaturated IBC (155-355) mcg/dl Transferrin % Sat (15-50) % Ferritin (8-388) ng/ml Diagnostic Findings Shoulder X-Ray 06/17/22 08:36 XR shoulder RT min 2V routine CLINICAL HISTORY: R shoulder pain TECHNIQUE: 3 views of the right shoulder were obtained. Comparison: Comparison is made to chest radiograph 06/17/2022 FINDINGS: There is no evidence of an acute fracture. Joint spaces are well-preserved. Calcific tendinopathy is seen. Incidental note is made of a right venous catheter. IMPRESSION: No evidence of acute osseous injury. ACT 112: Negative or not required by law. Electronically signed by: Neil Mendieta M.D. 06/17/2022 11:[address] 06/18/22 13:02 CT OF THE CHEST WITH IV CONTRAST CLINICAL HISTORY: Right upper chest discomfort, recent Castro, hx nodule COMPARISON STUDY: Chest CT January 11, 2022 and chest radiograph June 17, 2022. TECHNIQUE: Following IV administration of 88 mL of Optiray, helical axial images of the chest were obtained. Sagittal and coronal reconstructions were viewed as well as maximal intensity projections on an independent 3-D workstation. Automated exposure control was utilized for the study. A dose lowering technique was utilized adhering to the principles of ALARA. CT DOSE: 296.54 mGy.cm FINDINGS: A right internal jugular central venous catheter is in place. This is appropriately positioned. There is no pneumothorax. There is mild stranding within the subcutaneous small adjacent to the catheter. No fluid collection is present. The catheter is intact. Size of the heart is normal. There is no pericardial effusion. There is moderate coronary artery calcification. No pneumothorax or pleural effusion is present. Emphysema is present. There is no consolidation to suggest pneumonia. The previously described subpleural groundglass opacity with small cystic spaces within the right lower lobe on image 162 of 296 is similar to prior exam. This is likely benign. There is no consolidation to suggest pneumonia. No suspicious lesions within the bony thorax are present. Visualized portions of the upper abdomen are unremarkable. IMPRESSION: 1. Right internal jugular central venous catheter in place. No pneumothorax. Catheter intact. Mild adjacent stranding is likely postprocedural and not unexpected. An infectious process is considered less likely but cannot be excluded by imaging. No fluid collection. 2. No acute process within the chest. No consolidation to suggest pneumonia. 3. Emphysema. 4. No change in the previously described subpleural ground glass opacity with small cystic spaces which is likely benign. ACT 112: Negative or not required by law. Electronically signed by: Wilver Powell M.D. 06/18/2022 4:18 PM PG Care Time/CCT Total # of Minutes Spent Total Time Spent with Patient: Total time spent is greater than 50% in coordination of care (as documented) at patient's floor/unit and/or counseling patient: Coding Level of Care Code 99016 Subseq Hosp Care Lvl 3 Diagnoses Ulcer of left great toe due to diabetes mellitus E11.621; L97.529 Cellulitis of left foot L03.116 Diabetes mellitus type 2, uncontrolled E11.65 Nausea R11.0 MRSA (methicillin resistant staph aureus) culture positive Z22.322 PAD (peripheral artery disease) I73.9 Anxiety F41.9 Depression F32.9 Diabetic peripheral neuropathy E11.42 Chronic pain syndrome G89.4 Poor venous access I87.8 B12 deficiency E53.8 Shoulder pain M25.519 Vitamin D deficiency E55.9 Anemia D64.9
[2022-06-18] MEDS: ONDANSETRON INJ 2 MG/ML 2 ML VIAL IV PRN ×2 (08:01→16:46)
[2022-06-18] MEDS: VANCOMYCIN HCL 1,750 MG in SODIUM CHLORIDE 0.9% 500 ML IV SCH (08:10)
[2022-06-18] MEDS: MULTIVITAMIN TAB PO SCH (08:11)
[2022-06-18] MEDS: ASPIRIN 81 MG ECTAB PO SCH (08:11)
[2022-06-18] MEDS: METOPROLOL SUCC 50MG EXT REL TAB PO SCH (08:11)
[2022-06-18] MEDS: amLODIPine BESYLATE 5 MG TAB PO SCH (08:11)
[2022-06-18] MEDS: PREGABALIN 100 MG CAP PO SCH ×3 (08:11→21:28)
[2022-06-18] MEDS: ADVANCED PROBIOTIC 1250 MG CAPSULE PO SCH (08:12)
[2022-06-18] MEDS: CHOLECALCIFEROL 1,000 UNITS 25 MCG TAB PO SCH (08:12)
[2022-06-18] MEDS: CYANOCOBALAMIN (B-12) 500 MCG TABLET PO SCH (08:12)
[2022-06-18] MEDS: ENOXAPARIN INJ 40 MG/0.4 ML SYR SQ SCH (08:13)
[2022-06-18] MEDS: CLOPIDOGREL BISULFATE 75 MG TAB PO SCH (08:14)
[2022-06-18 08:17] LABS: BUN Creatinine Ratio 18.2 (10-20); Calcium 9.1 mg/dl (8.5-10.1); Creatinine Clr Calc Pharmacy 129.7 ml/min; Est GFR (Non-African American) 111.3 ml/min; Magnesium 1.7 mg/dl (1.7-2.4)
[2022-06-18] MEDS: hydrOXYzine HCl 25 MG TAB PO SCH ×2 (08:17→21:22)
[2022-06-18] MEDS: CYCLOBENZAPRINE HCL 10 MG TAB PO PRN (08:17)
[2022-06-18] MEDS: LANTUS PER UNIT CHARGE SQ SCH (08:54)
[2022-06-18] MEDS: INSULIN ASPART PER UNIT SC SCH ×4 (08:58→21:40)
[2022-06-18] MEDS: PANTOprazole 40 MG TAB PO SCH ×2 (09:04→21:21)
[2022-06-18] MEDS: DICLOFENAC SOD 1% GEL 100 GM TUBE EXT SCH ×4 (10:45→21:20)
[2022-06-18] MEDS: LORazepam 1 MG TAB PO PRN ×2 (10:58→16:59)
[2022-06-18] MEDS ORDERED: ALUMINUM/MAGNESIUM SUSP 18 ML, LIDOCAINE VISCOUS 2% SOLN 6 ML, BARCODE IDENTIFIER 1 EACH PO ONE (12:52)
[2022-06-18 14:37] LABS: Ferritin 31.2 ng/ml (8-388)
[2022-06-18] MEDS ORDERED: OPTIRAY 350 100ml IV ONE (15:54)
--- NOTE | 2022-06-18 16:21 | CT Scan Report ---
CT OF THE CHEST WITH IV CONTRAST CLINICAL HISTORY: Right upper chest discomfort, recent Rivas, hx nodule COMPARISON STUDY: Chest CT January 11, 2022 and chest radiograph June 17, 2022. TECHNIQUE: Following IV administration of 88 mL of Optiray, helical axial images of the chest were o btained. Sagittal and coronal reconstructions were viewed as well as maximal intensity projections o n an independent 3-D workstation. Automated exposure control was utilized for the study. A dose low ering technique was utilized adhering to the principles of ALARA. CT DOSE: 296.54 mGy.cm FINDINGS: A right internal jugular central venous catheter is in place. This is appropriately positi oned. There is no pneumothorax. There is mild stranding within the subcutaneous small adjacent to the catheter. No fluid collection is present. The catheter is intact. Size of the heart is normal. There is no pericardial effusion. There is moderate coronary artery calcification. No pneumothorax or pleu ral effusion is present. Emphysema is present. There is no consolidation to suggest pneumonia. The pr eviously described subpleural groundglass opacity with small cystic spaces within the right lower lob e on image 162 of 296 is similar to prior exam. This is likely benign. There is no consolidation to s uggest pneumonia. No suspicious lesions within the bony thorax are present. Visualized portions of th e upper abdomen are unremarkable. IMPRESSION: 1. Right internal jugular central venous catheter in place. No pneumothorax. Catheter intact. Mild a djacent stranding is likely postprocedural and not unexpected. An infectious process is considered le ss likely but cannot be excluded by imaging. No fluid collection. 2. No acute process within the chest. No consolidation to suggest pneumonia. 3. Emphysema. 4. No change in the previously described subpleural ground glass opacity with small cystic spaces whi ch is likely benign. ACT 112: Negative or not required by law. Electronically signed by: Wilver Powell M.D. 06/18/2022 4:18 PM
[2022-06-18] MEDS ORDERED: dilTIAZem HCL 30 MG TAB PO ONE (17:15)
[2022-06-18] MEDS ORDERED: DAPTOmycin 425 MG in SYRINGE 0 ML IV SCH (17:45)
[2022-06-18] MEDS: DAPTOmycin 200 MG in SYRINGE 0 ML IV SCH (18:21)
--- NOTE | 2022-06-18 18:52 | Orthopedic Progress Note ---
Date of Service June 18, 2022 Assessment & Plan (1) Ulcer of left great toe due to diabetes mellitus: Plan: Patient seen, evaluated, and treated. Dressing changed to include 4x4, ABC, kerlix, coban. Patient will keep dressing intact until out patient follow up in office in 1 to 2 weeks post discharge. Patient is weight bearing as tolerated in surgical shoe. Thank you for allowing me to participate in the care of this Patient. Admission and Anticipated Discharge Date Admission Date: June 06, 2022 Subjective Patient seen at bedside in no distress. Patient status post Day #4 Left foot surgery. Patient is weight bearing as tolerated in surgical off loading shoe. Review of Systems Review of Systems: All systems reviewed & are unremarkable except as noted in HPI & below Physical Exam Physical Exam: Dressing clean, dry, and intact. There is no strike through. Results & Data ([facility]) Vital Signs (Past 12 Hours) Vital Signs Temp Pulse Resp BP Pulse Ox O2 Del Method 06/18/22 08:09 37.0 C 66 16 144/77 H 95 Room Air
[2022-06-18] MEDS: SERTRALINE HCL 50 MG TABLET PO SCH (21:23)
[2022-06-18] MEDS: rOPINIRole HCL 2 MG TABLET PO SCH (21:23)
[2022-06-18] MEDS: ZOLPIDEM TARTRATE 10 MG TAB PO PRN (21:24)
[2022-06-19] MEDS: ONDANSETRON INJ 2 MG/ML 2 ML VIAL IV PRN ×3 (02:02→15:30)
[2022-06-19] MEDS: HYDROmorphone INJ 0.5 MG/0.5 ML SYR IV PRN ×4 (02:03→08:50)
[2022-06-19] MEDS: LORazepam 1 MG TAB PO PRN ×2 (04:40→13:32)
[2022-06-19] MEDS: PROMETHAZINE HCL 12.5 MG in SODIUM CHLORIDE 0.9% 50 ML IV PRN ×2 (04:58→18:22)
[2022-06-19 07:42] LABS: Hematocrit (blood only) 29.6 % (34.1-44.9); Hemoglobin 9.6 g/dl (12.0-16.0); Mean Corpuscular Hemoglobin 26.7 pg (25.0-34.0); Mean Corpuscular Hgb Conc 32.4 g/dL (32.0-36.0); Mean Corpuscular Volume 82.5 fL (80.0-100.0); Mean Platelet Volume 10.8 fL (9.4-12.3); Platelet Count 277 K/uL (130-400); RDW Coefficient of Variation 15.6 % (11.5-14.5); RDW Standard Deviation 47.1 fL (36.4-46.3); Red Blood Count 3.59 M/uL (3.93-5.22); White Blood Count 9.61 K/ul (4.8-10.8)
[2022-06-19 08:12] LABS: BUN Creatinine Ratio 20.4 (10-20); Calcium 8.9 mg/dl (8.5-10.1); Chol HDL Ratio 3.2 (0-5); Creatinine Clr Calc Pharmacy 116.4 ml/min; Est GFR (African American) 124.5 ml/min; Est GFR (Non-African American) 107.4 ml/min; Magnesium 1.7 mg/dl (1.7-2.4); Potassium 3.7 mmol/L (3.5-5.1)
[2022-06-19] MEDS: CYANOCOBALAMIN (B-12) 500 MCG TABLET PO SCH (08:26)
[2022-06-19] MEDS: CLOPIDOGREL BISULFATE 75 MG TAB PO SCH (08:26)
[2022-06-19] MEDS: ADVANCED PROBIOTIC 1250 MG CAPSULE PO SCH (08:26)
[2022-06-19] MEDS: METOPROLOL SUCC 50MG EXT REL TAB PO SCH (08:26)
[2022-06-19] MEDS: PREGABALIN 100 MG CAP PO SCH ×3 (08:26→20:04)
[2022-06-19] MEDS: MULTIVITAMIN TAB PO SCH (08:26)
[2022-06-19] MEDS: PANTOprazole 40 MG TAB PO SCH ×2 (08:26→20:06)
[2022-06-19] MEDS: dilTIAZem HCL 30 MG TAB PO SCH ×3 (08:27→16:05)
[2022-06-19] MEDS: CHOLECALCIFEROL 1,000 UNITS 25 MCG TAB PO SCH (08:27)
[2022-06-19] MEDS: ASPIRIN 81 MG ECTAB PO SCH (08:27)
[2022-06-19] MEDS: ENOXAPARIN INJ 40 MG/0.4 ML SYR SQ SCH (08:28)
[2022-06-19] MEDS: hydrOXYzine HCl 25 MG TAB PO SCH ×2 (08:37→20:09)
--- NOTE | 2022-06-19 08:48 | Hospitalist Progress Note ---
Date of Service June 19, 2022 Assessment & Plan (1) Ulcer of left great toe due to diabetes mellitus: Plan: Patient seen by PCP [employer] with erythema/streaking up leg from 1st digit LLE, started 3 days [employer] and sent to ER for admission. Initially placed on Ceftriaxone 2gm IV/Doxycycline 100mg Poor vascular access/PAD at baseline --> Dr Monet consulted last week, patient underwent placement of castro catheter R IJ--> will need flushes once completed abx MRI IMPRESSION with concerns for minimal marrow edema of first distal phalangeal tuft with preserved T1 signal suggestive of osteitis. Early osteo could appear similarly. Dr Noriega consulted from podiatry POD #7 s/p Fillet of left distal great toe with Dr Noriega 06/13 for ulcer of left great toe due to diabetes mellitus Pathology -underlying bone appears viable and changes of osteomyelitis are NOT seen Was on Vanco IV -- > given burning and prior tolerance to Dapto, switched to Dapto IV daily -- last dose tomorrow 06/20 WBC wnl 9.6k, afebrile --> given Ferrlecit today without reaction 125, consider repeat tomorrow (iron 28, trans % sat 8) Pain control --> lyrica increased to 100mg TID which has helped neuropathic pain and would continue at d/c. Also checked b12/low and started/continued supplementation *Of note patient had been started on oxycontin 15mg BID prior admission, she reported this was helpful for pain control at home previously but not while inpatient and will plan to transition to PO long acting tomorrow to limit need for IV and continue at d/c w/ continued f/u PCP. Also has MMJ card lotions/tinctures she uses at home (educated for further inpatient stay about lock box policy) Orthotics consulted for CAM boot -- patient refused the boot but they were able to adjust surgical [employer] shoe to allow for better fit Vit D low -- replacment ordered -- continue at d/c Zoloft increased to 50mg daily - continue and titrate further outpatient with PCP, continue vistaril QAM/QPM Of note, patient reported chest discomfort around right shoulder/neck & throat fullness and sore throat--> globus pharyngeus, started diltiazem 30mg AC which helped w/ BP as well (BP 133/73) --> continue at d/c issues with her castro causing her distress --> Dr Monet to come to [facility] tomorrow PT/OT consulted -- no [facility] [place], planning for discharge with [facility] tomorrow (2) Cellulitis of left foot: Plan: improved, abx as outlined (3) Diabetes mellitus type 2, uncontrolled: Plan: A1c 8.7 in March home regimen held while inpatient, continue to use ISS while inpatient BSGs acceptable, monitor (4) Nausea: Plan: Improving, suspect component of pain as well as anxiety contributing, also could be element of gastroparesis from DM, however patient moving her bowels antiemetics prn cardizem 30mg AC continued as above (5) MRSA (methicillin resistant staph aureus) culture positive: Plan: Hx of from L foot prior cx in February - Dapto IV as above (6) PAD (peripheral artery disease): Plan: Continue aspirin and clopidogrel quit smoking >1 year ago, does apparently use marijuana vape pens -- will need to ask about medical card --> SEE ABOVE, MMJ CARD, uses tinctures, RSO, topicall creams for additional pain relief Of note, not on any statin -- last lipid panel in system October 2020 with elevated TRG 272, Chol 174, LDL 89, HDL 31 --> lipids with TRG 77, cholesterol 83, LDL 42, HDL 26, ?low dose statin (7) Anxiety: Plan: Anxiety/depression continue hydroxyzine, lorazepam, sertraline and zolpidem --> increased Vistaril as above, REPORTED IMPROVEMENT IN SLEEP OVERNIGHT 06/16- 06/17 --> no sleep last night, increased vistaril to 50mg for tonight (reporting poor sleep but observed resting) Continues on increased lyrica 100mg TID as well --> can increase further if needed for additional pain control as well, however planning for long acting opiates for tomorrow (8) Depression: Plan: continue meds as above, does endorse increased anxiety/depression regarding ongoing infections/amputations and fear to end up in BKA as her RLE did this past year reassurance provided, vistaril/pain control as outlined INCREASED ZOLOFT 50mg --> tolerating well, continue at discharge and strongly recommend increasing outpatient in next 1-2 weeks (9) Diabetic peripheral neuropathy: Plan: Continue pregabalin and ropinirole checked B12 w/ AM labs-- LOW NORMAL, REPLACEMENT ORDERED while inpatient and continue at d/c Continue increased Lyrica as above, MMJ outpatient creams (10) Chronic pain syndrome: Plan: As above (11) Poor venous access: Plan: S/P CASTRO W/ DR MONET will need flushes once completed abx monitor for any infection -- none currently, CT chest w/ findings expected from placement, however infection not exlcluded This has been causing patient significant distress, especially that she is telling me no one ever told her it would be a permanent vascular access Dr Monet to see patient 06/20 (12) B12 deficiency: Plan: b12 checked given DM/neuropathy/neuropathic pain --> B12 low normal 261, replacement ordered would continue at d/c (13) Shoulder pain: Plan: reported, ?frozen shoulder no bony step off ekg obtained, NSR without ST elevation xray without issue now reporting pain with moving her next from side to side from the catheter irritating her (14) Vitamin D deficiency: Plan: checked, low -- replacement ordered and continue at d/c (15) Anemia: Plan: hx ANGELA, intolerant to Venofer Iron studies c/w ANGELA Ferlicit x 1, repeat for AM Plan continued inpatient stay Dr Monet to see in AM Dapto IV to be completed tomorrow Continue Lyrica 100mg TID, IV pain meds for now w/ plans for Oxycontin at d/c for chronic pain control and f/u PCP Continue Vit D Attempting to hear back from wound RN to get her into local wound center for follow up CM arranging [facility] for tomorrow Admission and Anticipated Discharge Date Admission Date: June 06, 2022 Subjective eval this morning feeling tired got a little sleep last night but still appears anxious/tearful at times discussed prior issues with Venofer, she is agreeable to try a dose of Ferrlicit. Asked vascular to see/review imaging. She states pain in her neck when she moves from side to side. Catheter site looks good, however will see if able to see. Orthotics to fit/provide CAM boot later today. Dressing changed last night due to fitting too tightly after changed by Dr Noriega. Will see about wound RN to see as wanting wound care follow up. Review of Systems Review of Systems: All systems reviewed & are unremarkable except as noted in HPI & below Physical Exam Physical Exam: General: chronically ill appearing female sitting up in bed, NAD HEENT: head normocephalic, atraumatic, mmm, poor dentition, trachea midline without deviation, no opening/erythema, no warmth, no lymphadenopathy, no stridor Chest: castro catheter to R IJ, Tegaderm in place, smaller excoriations/scratch pickering to anterior of dressing (reported issues with adhesives in the past as well) -- looks much better Resp: no distress, not tachypneic, good air movement bilaterally, no wheezing/crackles, on room air Cardiac: regular rate, rhythm, no pitting edema, cap refill wnl GI: +BS, soft/NT : no plummer MSk/Neuro: moves all extremities, no slurred speech/focal deficit baseline neuropathy, right BKA (prior incision well healed, no evidence for infection), s/p L hallux amputation, dressing c/d/i, covered with coban, cap refill wnl, some bloody discharge to distal toe (patient currently touching) Psych: AOx3, cooperative Results & Data Results & Data ([facility]) Vital Signs (Past 12 Hours) Vital Signs Temp Pulse Resp BP Pulse Ox Pulse Ox O2 Del Method 06/19/22 08:25 76 165/85 H 97 Room Air 06/18/22 21:20 Room Air 06/18/22 21:20 94 06/18/22 21:30 37.2 C 72 20 159/94 H 94 Room Air O2 Del Method 06/19/22 08:25 06/18/22 21:20 06/18/22 21:20 Room Air 06/18/22 21:30 Laboratory Results 06/19/22 06/19/22 06/19/22 Range/Units 17:12 12:38 08:31 WBC (4.8-10.8) K/ul RBC (3.93-5.22) M/uL Hgb (12.0-16.0) g/dl Hct (34.1-44.9) % MCV (80.0-100.0) fL MCH (25.0-34.0) pg MCHC (32.0-36.0) g/dL RDW Std Deviation (36.4-46.3) fL RDW Coeff of Maria Del Carmen (11.5-14.5) % Plt Count (130-400) K/uL MPV (9.4-12.3) fL Sodium (136-145) mmol/L Potassium (3.5-5.1) mmol/L Chloride (98-107) mmol/L Carbon Dioxide (21-32) mmol/L Anion Gap (3-11) BUN (6-23) mg/dl Creatinine (0.6-1.2) mg/dl Est Cr Clr Drug Dosing ml/min Est GFR ( Amer) ml/min Est GFR (Non-Af Amer) ml/min BUN/Creatinine Ratio (10-20) Glucose (70-99(Fasting)) mg/dl POC Glucose 134 H 150 H 125 H (70-99) mg/dl Calcium (8.5-10.1) mg/dl Magnesium (1.7-2.4) mg/dl Triglycerides (0-150) mg/dl Cholesterol (0-200) mg/dl LDL Cholesterol, Calc mg/dl VLDL Cholesterol, Calc (0-30) mg/dl HDL Cholesterol mg/dl Cholesterol/HDL Ratio (0-5) 06/19/22 06/19/22 06/18/22 Range/Units 05:57 05:57 21:05 WBC 9.61 (4.8-10.8) K/ul RBC 3.59 L (3.93-5.22) M/uL Hgb 9.6 L (12.0-16.0) g/dl Hct 29.6 L (34.1-44.9) % MCV 82.5 (80.0-100.0) fL MCH 26.7 (25.0-34.0) pg MCHC 32.4 (32.0-36.0) g/dL RDW Std Deviation 47.1 H (36.4-46.3) fL RDW Coeff of Maria Del Carmen 15.6 H (11.5-14.5) % Plt Count 277 (130-400) K/uL MPV 10.8 (9.4-12.3) fL Sodium 140 (136-145) mmol/L Potassium 3.7 (3.5-5.1) mmol/L Chloride 101 (98-107) mmol/L Carbon Dioxide 34 H (21-32) mmol/L Anion Gap 5 (3-11) BUN 10 (6-23) mg/dl Creatinine 0.49 L (0.6-1.2) mg/dl Est Cr Clr Drug Dosing 116.4 ml/min Est GFR ( Amer) 124.5 ml/min Est GFR (Non-Af Amer) 107.4 ml/min BUN/Creatinine Ratio 20.4 H (10-20) Glucose 116 H (70-99(Fasting)) mg/dl POC Glucose 123 H (70-99) mg/dl Calcium 8.9 (8.5-10.1) mg/dl Magnesium 1.7 (1.7-2.4) mg/dl Triglycerides 77 (0-150) mg/dl Cholesterol 83 (0-200) mg/dl LDL Cholesterol, Calc 42 mg/dl VLDL Cholesterol, Calc 15 (0-30) mg/dl HDL Cholesterol 26 mg/dl Cholesterol/HDL Ratio 3.2 (0-5) PG Care Time/CCT Total # of Minutes Spent Total Time Spent with Patient: Total time spent is greater than 50% in coordination of care (as documented) at patient's floor/unit and/or counseling patient: Coding Level of Care Code 85913 Subseq Hosp Care Lvl 3 Diagnoses Ulcer of left great toe due to diabetes mellitus E11.621; L97.529 Cellulitis of left foot L03.116 Diabetes mellitus type 2, uncontrolled E11.65 Nausea R11.0 MRSA (methicillin resistant staph aureus) culture positive Z22.322 PAD (peripheral artery disease) I73.9 Anxiety F41.9 Depression F32.9 Diabetic peripheral neuropathy E11.42 Chronic pain syndrome G89.4 Poor venous access I87.8 B12 deficiency E53.8 Shoulder pain M25.519 Vitamin D deficiency E55.9 Anemia D64.9
[2022-06-19] MEDS: INSULIN ASPART PER UNIT SC SCH ×4 (08:49→21:11)
[2022-06-19] MEDS: LANTUS PER UNIT CHARGE SQ SCH (08:49)
[2022-06-19] MEDS: DICLOFENAC SOD 1% GEL 100 GM TUBE EXT SCH ×4 (08:50→20:10)
[2022-06-19] MEDS ORDERED: SODIUM FERRIC GLUCONATE 125 MG in 0.9 % SODIUM CHLORIDE 100 ML IV SCH (10:30)
[2022-06-19] MEDS ORDERED: Nursing to Pharmacy Communication SCH (10:45)
[2022-06-19] MEDS: HYDROmorphone INJ 1 MG/ML SYRINGE IV PRN ×6 (10:52→23:37)
[2022-06-19] MEDS: CYCLOBENZAPRINE HCL 10 MG TAB PO PRN ×2 (13:32→20:03)
[2022-06-19] MEDS: DAPTOmycin 200 MG in SYRINGE 0 ML IV SCH (18:22)
[2022-06-19] MEDS ORDERED: MAGNESIUM SULFATE / D5W 1 GM/100 ML BAG IV ONE (19:27)
[2022-06-19] MEDS: ZOLPIDEM TARTRATE 10 MG TAB PO PRN (20:04)
[2022-06-19] MEDS: rOPINIRole HCL 2 MG TABLET PO SCH (20:06)
[2022-06-19] MEDS: SERTRALINE HCL 50 MG TABLET PO SCH (20:10)
[2022-06-20] MEDS: HYDROmorphone INJ 1 MG/ML SYRINGE IV PRN ×9 (01:42→20:16)
[2022-06-20] MEDS: LORazepam 1 MG TAB PO PRN ×2 (06:50→16:17)
[2022-06-20] MEDS: PROMETHAZINE HCL 12.5 MG in SODIUM CHLORIDE 0.9% 50 ML IV PRN ×2 (07:12→21:16)
[2022-06-20] MEDS: ADVANCED PROBIOTIC 1250 MG CAPSULE PO SCH (07:46)
[2022-06-20] MEDS: CLOPIDOGREL BISULFATE 75 MG TAB PO SCH (07:46)
[2022-06-20] MEDS: PANTOprazole 40 MG TAB PO SCH ×2 (07:46→20:12)
[2022-06-20] MEDS: METOPROLOL SUCC 50MG EXT REL TAB PO SCH (07:47)
[2022-06-20] MEDS: dilTIAZem HCL 30 MG TAB PO SCH ×3 (07:47→16:17)
[2022-06-20] MEDS: ASPIRIN 81 MG ECTAB PO SCH (07:47)
[2022-06-20] MEDS: CYANOCOBALAMIN (B-12) 500 MCG TABLET PO SCH (07:48)
[2022-06-20] MEDS: CHOLECALCIFEROL 1,000 UNITS 25 MCG TAB PO SCH (07:48)
[2022-06-20] MEDS: DICLOFENAC SOD 1% GEL 100 GM TUBE EXT SCH ×4 (07:48→20:15)
[2022-06-20] MEDS: MULTIVITAMIN TAB PO SCH (07:48)
[2022-06-20] MEDS: ENOXAPARIN INJ 40 MG/0.4 ML SYR SQ SCH (07:49)
[2022-06-20] MEDS: PREGABALIN 100 MG CAP PO SCH ×3 (08:27→20:22)
[2022-06-20] MEDS: INSULIN ASPART PER UNIT SC SCH ×4 (08:28→21:15)
[2022-06-20] MEDS: LANTUS PER UNIT CHARGE SQ SCH (08:28)
[2022-06-20] MEDS: hydrOXYzine HCl 25 MG TAB PO SCH ×2 (09:08→20:11)
--- NOTE | 2022-06-20 09:08 | Communication Note ---
Date of Service: June 20, 2022 No evidence of line infection. Can remove it once antibiotics done. Patient claimed we were rude and didn't explain things to her. The line can be removed by another service. If she decides to let us remove the line, please give us a page. Thanks.
[2022-06-20] MEDS ORDERED: SODIUM FERRIC GLUCONATE 125 MG in 0.9 % SODIUM CHLORIDE 100 ML IV ONE (10:00)
[2022-06-20 10:26] LABS: Hematocrit (blood only) 32.9 % (34.1-44.9); Hemoglobin 10.6 g/dl (12.0-16.0); Mean Corpuscular Hemoglobin 26.8 pg (25.0-34.0); Mean Corpuscular Hgb Conc 32.2 g/dL (32.0-36.0); Mean Corpuscular Volume 83.1 fL (80.0-100.0); Mean Platelet Volume 9.8 fL (9.4-12.3); Platelet Count 304 K/uL (130-400); RDW Coefficient of Variation 15.3 % (11.5-14.5); RDW Standard Deviation 46.7 fL (36.4-46.3); Red Blood Count 3.96 M/uL (3.93-5.22)
[2022-06-20 10:51] LABS: Albumin Globulin Ratio 1.7 (0.9-2); BUN Creatinine Ratio 16.9 (10-20); Bilirubin,Total 0.3 mg/dl (0.2-1.0); Calcium 9.2 mg/dl (8.5-10.1); Creatinine Clr Calc Pharmacy 96.7 ml/min; Est GFR (African American) 117.1 ml/min; Globulin 2.4 gm/dl (2.5-4.0); Magnesium 1.7 mg/dl (1.7-2.4); Potassium 4.1 mmol/L (3.5-5.1); Total Protein 6.4 gm/dl (6.0-8.3)
--- NOTE | 2022-06-20 11:07 | Hospitalist Progress Note ---
Date of Service June 20, 2022 Assessment & Plan (1) Ulcer of left great toe due to diabetes mellitus: Plan: Patient seen by PCP [employer] with erythema/streaking up leg from 1st digit LLE, started 3 days [employer] and sent to ER for admission. Initially placed on Ceftriaxone 2gm IV/Doxycycline 100mg Poor vascular access/PAD at baseline --> Dr Monet consulted last week, patient underwent placement of castro catheter R IJ--> will need flushes once completed abx MRI IMPRESSION with concerns for minimal marrow edema of first distal phalangeal tuft with preserved T1 signal suggestive of osteitis. Early osteo could appear similarly. Dr Noriega consulted from podiatry POD #7 s/p Fillet of left distal great toe with Dr Noriega 06/13 for ulcer of left great toe due to diabetes mellitus Pathology -underlying bone appears viable and changes of osteomyelitis are NOT seen Switched to Dapto to complete course, last dose this evening WBC wnl, afebrile. Getting ferlicit for ANGELA (allergy in past to Venofer w/ HTN) Orthotics consulted and fit her surgical shoe-- patient refused CAM boot Vit D low, replacement ordered and can continue Zoloft increased to 50mg daily -- titrate as outpatient Cardizem 30mg daily continued for globus pharyngeus Pain control * Lyrica increased to 100mg TID, helping with neuropathic pain, can continue. Of note, patient uses medical marijuana at home/cream/tincture/discussed to bring for lock box if ever hospitalized again for pain control * prior admission Apr d/c on Oxycontin BID, considering current dosing IV dilaudid could consider transition to long acting/follow up with PCP at d/c to prevent withdrawal symptoms as does appear to be large component using pain meds inpatient and then abrupt cessation at d/c * Also discussed PO Percocet on her OCT, she had not used since 06/17, discussed more appropriate for use of this and only using the IV for breakthrough. Again, consider long acting at d/c short course w/ follow up pcp to continue if effective Dr Noriega to see this evening, consider casting to prevent introduction of infection in surgical wound. Monitor/f/u wound PT/OT -- patient to have [facility] arranged, however now declining this 06/20 Discussed at length importance for follow up/wound care etc, patient to think about this Dr Monet to take out Ms Eduar's Castro catheter tomorrow. Risk for infection/picking/irritation and extreme distress since placement reported with not being able to sleep (2) Cellulitis of left foot: Plan: improved, abx as outlined however risk for infection, possible stitch removed (reported to have been removed by Dr Noriega in prior day) (3) Diabetes mellitus type 2, uncontrolled: Plan: A1c 8.7 in March home regimen held while inpatient, continue to use ISS while inpatient BSGs acceptable, monitor -- slight bump w/ IV iron, monitor (4) Nausea: Plan: Improving, suspect component of pain as well as anxiety contributing, also could be element of gastroparesis from DM, however patient moving her bowels, no further diarrhea reported cardizem 30mg AC continued as above antiemetics prn, suspect related to anxiety/pain as well -- vistaril/zoloft increased as above (5) MRSA (methicillin resistant staph aureus) culture positive: Plan: Hx of from L foot prior cx in February - Dapto IV as above to be completed today (6) PAD (peripheral artery disease): Plan: Continue aspirin and clopidogrel quit smoking >1 year ago, does apparently use marijuana vape pens -- will need to ask about medical card --> SEE ABOVE, MMJ CARD, uses tinctures, RSO, topicall creams for additional pain relief Of note, not on any statin -- last lipid panel in system October 2020 with elevated TRG 272, Chol 174, LDL 89, HDL 31 --> lipids with TRG 77, cholesterol 83, LDL 42, HDL 26, ?low dose statin (7) Anxiety: Plan: Anxiety/depression continue hydroxyzine, lorazepam, sertraline and zolpidem --> increased Vistaril as above, REPORTED IMPROVEMENT IN SLEEP OVERNIGHT 06/16- 06/17 --> increased vistaril to 50mg HS as well Continues on increased lyrica 100mg TID as well --> can increase further if needed for additional pain control as well, however planning for long acting opiates possibly for tomorrow at d/c Already on lorazepam 1mg TID by PCP, would NOT increase this further (8) Depression: Plan: continue meds as above, does endorse increased anxiety/depression regarding on going infections/amputations and fear to end up in BKA as her RLE did this past year reassurance provided, vistaril/pain control as outlined INCREASED ZOLOFT 50mg --> tolerating well, continue at discharge and strongly recommend increasing outpatient in next 1-2 weeks (9) Diabetic peripheral neuropathy: Plan: Continue pregabalin and ropinirole checked B12 w/ AM labs-- LOW NORMAL, REPLACEMENT ORDERED while inpatient and continue at d/c Continue increased Lyrica as above, MMJ outpatient creams (10) Chronic pain syndrome: Plan: As above (11) Poor venous access: Plan: S/P MIKAELA W/ DR MONET will need flushes once completed abx monitor for any infection -- none currently, CT chest w/ findings expected from placement, however infection not exlcluded This has been causing patient significant distress, especially that she is telling me no one ever told her it would be a permanent vascular access Dr Monet to see patient 06/20 -- plans for removal 06/21 (12) B12 deficiency: Plan: b12 checked given DM/neuropathy/neuropathic pain --> B12 low normal 261, replacement ordered would continue at d/c (13) Shoulder pain: Plan: reported, ?frozen shoulder no bony step off ekg obtained, NSR without ST elevation xray without issue now reporting pain with moving her next from side to side from the catheter irritating her (14) Vitamin D deficiency: Plan: checked, low -- replacement ordered and continue at d/c (15) Anemia: Plan: hx ANGELA, intolerant to Venofer Iron studies c/w ANGELA Ferlicit x 2, hgb 10.6 Plan continued inpatient stay Dr Monet to remove catheter tomorrow Dr Noriega to see this evening Pain control -- consider Oxycontin long acting/limit IV pain medication, possible long acting at d/c, ?pain management outpatient given likely continued hospitalizations/pain control/possible withdrawal at d/c Admission and Anticipated Discharge Date Admission Date: June 06, 2022 Supervising Physician Co-Signing Physician Notes Attending Attestation - Chart reviewed, care plan d/w CHAVEZ Luther. I agree w/ the tanner components of her documentation. Silvestre brady this morning around lunch time patient upset as believes staff talking about her/pain medications in hallway provided reassurance, also discussed PO percocet for longer acting pain control , patient stated she didn't know this was still available. Discussed trying PO option for longer lasting control and limit IV, consideration for longer acting opiates at d/c for baseline control as d/c previously with reported relief. Patient seen by Dr Monet this morning, stated she was upset, but that she does want to get this catheter out, having discomfort with any movement and she can feel it in her neck. Foot pain still with pressure from coban, stated Dr Noriega took stitch out the other days. Discussed he will be in today to discuss/provide possible cast for better protection. She does not want HH therapy any longer, discussed needing f/u to prevent further infections. She will see how things go and get back to us. Discussed abx completed after tonight dose and messaged Dr Monet to have catheter removed for tomorrow. Got 2nd dose of ferlicit, she was mentioning her BSG went to 200. Dextrose in IV ferlicit, no new rashes/fevers. Hgb imprvoed, discussed anemia Questions/concerns addressed at this time. Has reported getting more sleep than days past but that she is mentally exhausted. Review of Systems Review of Systems: All systems reviewed & are unremarkable except as noted in HPI & below Physical Exam Physical Exam: General: chronically ill appearing female sitting up in bed, NAD, tearful and crying about pain control/people talking about her HEENT: head normocephalic, atraumatic, mmm, poor dentition, trachea midline without deviation, no opening/erythema, no warmth, no lymphadenopathy, no stridor Chest: castro catheter to R IJ, Tegaderm in place, smaller excoriations/scratch pickering to anterior of dressing Resp: no distress, not tachypneic, decreased air entry due to effort, no wheezing/crackles, on room air, iron infusing Cardiac: regular rate, rhythm, no pitting edema, cap refill wnl GI: +BS, soft/NT : no plummer MSk/Neuro: moves all extremities, no slurred speech/focal deficit baseline neuropathy, right BKA (prior incision well healed, no evidence for infection), s/p L hallux amputation, exposed tissue/no expressable drainage, appears stitch removal to distal amputation site wrapped in kerlex, covered with coban, Psych: AOx3, cooperative, anxious and tearful Results & Data Results & Data ([facility]) Vital Signs (Past 12 Hours) Vital Signs Temp Pulse Resp BP Pulse Ox O2 Del Method 06/20/22 07:30 37.3 C 85 18 168/80 H 92 Room Air Laboratory Results 06/20/22 06/20/22 06/20/22 Range/Units 11:58 10:11 10:11 WBC 10.60 (4.8-10.8) K/ul RBC 3.96 (3.93-5.22) M/uL Hgb 10.6 L (12.0-16.0) g/dl Hct 32.9 L (34.1-44.9) % MCV 83.1 (80.0-100.0) fL MCH 26.8 (25.0-34.0) pg MCHC 32.2 (32.0-36.0) g/dL RDW Std Deviation 46.7 H (36.4-46.3) fL RDW Coeff of Maria Del Carmen 15.3 H (11.5-14.5) % Plt Count 304 (130-400) K/uL MPV 9.8 (9.4-12.3) fL Sodium 138 (136-145) mmol/L Potassium 4.1 (3.5-5.1) mmol/L Chloride 102 (98-107) mmol/L Carbon Dioxide 30 (21-32) mmol/L Anion Gap 6 (3-11) BUN 10 (6-23) mg/dl Creatinine 0.59 L (0.6-1.2) mg/dl Est Cr Clr Drug Dosing 96.7 ml/min Est GFR ( Amer) 117.1 ml/min Est GFR (Non-Af Amer) 101.0 ml/min BUN/Creatinine Ratio 16.9 (10-20) Glucose 218 H (70-99(Fasting)) mg/dl POC Glucose 208 H (70-99) mg/dl Calcium 9.2 (8.5-10.1) mg/dl Magnesium 1.7 (1.7-2.4) mg/dl Total Bilirubin 0.3 (0.2-1.0) mg/dl AST 14 (13-39) U/L ALT 22 (7-52) U/L Alkaline Phosphatase 85 (34-104) U/L Total Protein 6.4 (6.0-8.3) gm/dl Albumin 4.0 (3.4-5.0) gm/dl Globulin 2.4 L (2.5-4.0) gm/dl Albumin/Globulin Ratio 1.7 (0.9-2) 06/20/22 06/19/22 06/19/22 Range/Units 08:13 20:52 17:12 WBC (4.8-10.8) K/ul RBC (3.93-5.22) M/uL Hgb (12.0-16.0) g/dl Hct (34.1-44.9) % MCV (80.0-100.0) fL MCH (25.0-34.0) pg MCHC (32.0-36.0) g/dL RDW Std Deviation (36.4-46.3) fL RDW Coeff of Maria Del Carmen (11.5-14.5) % Plt Count (130-400) K/uL MPV (9.4-12.3) fL Sodium (136-145) mmol/L Potassium (3.5-5.1) mmol/L Chloride (98-107) mmol/L Carbon Dioxide (21-32) mmol/L Anion Gap (3-11) BUN (6-23) mg/dl Creatinine (0.6-1.2) mg/dl Est Cr Clr Drug Dosing ml/min Est GFR ( Amer) ml/min Est GFR (Non-Af Amer) ml/min BUN/Creatinine Ratio (10-20) Glucose (70-99(Fasting)) mg/dl POC Glucose 159 H 215 H 134 H (70-99) mg/dl Calcium (8.5-10.1) mg/dl Magnesium (1.7-2.4) mg/dl Total Bilirubin (0.2-1.0) mg/dl AST (13-39) U/L ALT (7-52) U/L Alkaline Phosphatase (34-104) U/L Total Protein (6.0-8.3) gm/dl Albumin (3.4-5.0) gm/dl Globulin (2.5-4.0) gm/dl Albumin/Globulin Ratio (0.9-2) PG Care Time/CCT Total # of Minutes Spent Total Time Spent with Patient: Total time spent is greater than 50% in coordination of care (as documented) at patient's floor/unit and/or counseling patient: Coding Level of Care Code 60862 Subseq Hosp Care Lvl 3 Diagnoses Ulcer of left great toe due to diabetes mellitus E11.621; L97.529 Cellulitis of left foot L03.116 Diabetes mellitus type 2, uncontrolled E11.65 Nausea R11.0 MRSA (methicillin resistant staph aureus) culture positive Z22.322 PAD (peripheral artery disease) I73.9 Anxiety F41.9 Depression F32.9 Diabetic peripheral neuropathy E11.42 Chronic pain syndrome G89.4 Poor venous access I87.8 B12 deficiency E53.8 Shoulder pain M25.519 Vitamin D deficiency E55.9 Anemia D64.9
[2022-06-20] MEDS: oxyCODONE/ACETAMINOPHEN 10-325 TAB PO PRN (12:59)
[2022-06-20] MEDS: DAPTOmycin 200 MG in SYRINGE 0 ML IV SCH (17:26)
[2022-06-20] MEDS: ONDANSETRON INJ 2 MG/ML 2 ML VIAL IV PRN (17:27)
[2022-06-20] MEDS: rOPINIRole HCL 2 MG TABLET PO SCH (20:14)
[2022-06-20] MEDS: SERTRALINE HCL 50 MG TABLET PO SCH (20:14)
[2022-06-20] MEDS: CYCLOBENZAPRINE HCL 10 MG TAB PO PRN (20:15)
[2022-06-20] MEDS: ZOLPIDEM TARTRATE 10 MG TAB PO PRN (20:15)
[2022-06-21] MEDS: HYDROmorphone INJ 1 MG/ML SYRINGE IV PRN ×10 (00:36→21:02)
[2022-06-21] MEDS: ONDANSETRON INJ 2 MG/ML 2 ML VIAL IV PRN ×2 (02:35→16:08)
[2022-06-21] MEDS: LORazepam 1 MG TAB PO PRN ×2 (03:48→13:04)
[2022-06-21] MEDS: CYCLOBENZAPRINE HCL 10 MG TAB PO PRN (06:03)
[2022-06-21] MEDS: INSULIN ASPART PER UNIT SC SCH ×4 (06:19→21:23)
[2022-06-21] MEDS: ASPIRIN 81 MG ECTAB PO SCH (08:52)
[2022-06-21] MEDS: DICLOFENAC SOD 1% GEL 100 GM TUBE EXT SCH ×4 (08:52→20:57)
[2022-06-21] MEDS: CHOLECALCIFEROL 1,000 UNITS 25 MCG TAB PO SCH (08:52)
[2022-06-21] MEDS: CLOPIDOGREL BISULFATE 75 MG TAB PO SCH (08:52)
[2022-06-21] MEDS: CYANOCOBALAMIN (B-12) 500 MCG TABLET PO SCH (08:52)
[2022-06-21] MEDS: dilTIAZem HCL 30 MG TAB PO SCH ×3 (08:52→16:09)
[2022-06-21] MEDS: MULTIVITAMIN TAB PO SCH (08:53)
[2022-06-21] MEDS: METOPROLOL SUCC 50MG EXT REL TAB PO SCH (08:53)
[2022-06-21] MEDS: LANTUS PER UNIT CHARGE SQ SCH (08:53)
[2022-06-21] MEDS: PANTOprazole 40 MG TAB PO SCH ×2 (08:53→20:58)
[2022-06-21] MEDS: hydrOXYzine HCl 25 MG TAB PO SCH ×2 (08:53→20:58)
[2022-06-21] MEDS: PREGABALIN 100 MG CAP PO SCH ×3 (08:53→20:59)
[2022-06-21] MEDS: ENOXAPARIN INJ 40 MG/0.4 ML SYR SQ SCH (08:53)
[2022-06-21] MEDS: ADVANCED PROBIOTIC 1250 MG CAPSULE PO SCH (08:53)
--- NOTE | 2022-06-21 13:13 | History & Physical Bridge Note ---
Date of Service June 21, 2022 History & Physical Bridge Note Patient for removal castro removal. I have discussed the risks options and benefits of the procedure with the patient. The patient understands the risks options and benefits and agrees to the procedure. I have examined the patient, reviewed the History & Physical and in the interval since the performance of the History & Physical I have noted the following changes of clinical significance: no changes noted
--- NOTE | 2022-06-21 14:43 | Communication Note ---
Date of Service: June 21, 2022 Patient refused to be taken to the OR for castro removal. Told the nurse she will go home with it in. Will cancel her castro removal. Will not reschedule it at this time
--- NOTE | 2022-06-21 19:01 | Hospitalist Progress Note ---
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 Initially placed on Ceftriaxone 2gm IV/Doxycycline 100mg Poor vascular access/PAD at baseline --> Dr Monet consulted last week, patient underwent placement of castro catheter R IJ--> will need flushes once completed abx MRI IMPRESSION with concerns for minimal marrow edema of first distal phalangeal tuft with preserved T1 signal suggestive of osteitis. Early osteo could appear similarly. Dr Mathew Noriega consulted from podiatry POD #8 s/p Fillet of left distal great toe with Dr Noriega Pathology report - underlying bone appears viable and changes of osteomyelitis are NOT seen Culture from 06/13 from the left great toe negative for any specific pathogen Completed her IV antibiotics 06/20/22 Orthotics consulted and fit her surgical shoe-- patient refused CAM boot Vit D low, replacement ordered and can continue Dr Noriega saw patient again today - operative site stable/clean; left foot redressed (2) Acute leg pain: Plan: Lyrica increased to 100mg TID this admission. She is requesting IV dilaudid 1mg every 2 hours nearly scheduled. During prior admission in April she was seen by pain management - they advised Oxycontin 10mg BID. She would benefit from basal/long-acting pain meds. Will start oxycontin 10mg BID starting this evening with hope of being able to wean the IV dilaudid over the next few days. Consider an anti-inflammatory med. Of note, patient uses medical marijuana at home -- prior provider discussed to bring for lock box if ever hospitalized again for pain control. If unable to wean the IV dilaudid over next few days will re-consult pain management. (3) Cellulitis of left foot: Plan: resolved, she is off abx at this time (4) Diabetes mellitus type 2, uncontrolled: Plan: A1c 8.7% in March 2022 and all prior a1c's uncontrolled cont lantus 10 units daily cont novolog achs BSGs remain <200 (5) Nausea: Plan: no mention of nausea today with introduction of oxycontin will d/c phenergan as to avoid excess sedation use zofran or reglan prn (6) MRSA (methicillin resistant staph aureus) culture positive: Plan: Hx of from L foot prior cx in February - all abx d/c on 06/20/22 (7) PAD (peripheral artery disease): Plan: Continue aspirin and clopidogrel Quit smoking >1 year ago, does apparently use marijuana vape pens -- will need to ask about medical card --> SEE ABOVE, MMJ CARD, uses tinctures, RSO, topicall creams for additional pain relief Ideally should be on statin therapy (8) Anxiety: Plan: Cont hydroxyzine but lower the HS dose to 25mg due to introduction of oxycontin Cont lorazepam prn Cont sertraline and zolpidem (9) Depression: Plan: INCREASED ZOLOFT 50mg --> tolerating well, continue at discharge f/u PCP for further dose titration (10) Diabetic peripheral neuropathy: Plan: Continue pregabalin and ropinirole checked B12 w/ AM labs-- LOW NORMAL, REPLACEMENT ORDERED while inpatient and continue at d/c Continue increased Lyrica as above, MMJ outpatient creams (11) Chronic pain syndrome: Plan: As above (12) Poor venous access: Plan: S/P CASTRO W/ DR MONET earlier this stay was to have this removed today but she refused removal - surgery canceled will need flushes once completed abx (13) B12 deficiency: Plan: B12 low normal 261, replacement ordered would continue at d/c x 1 year (14) Shoulder pain: Plan: Calcific tendinopathy seen on x-rays -- right shoulder f/u with ortho if persistent pain - x-rays c/w chronic tendonitis and/or bursitis (15) Vitamin D deficiency: Plan: 25-OH vit D level 20 this admission cont replacement (16) Anemia: Plan: hx iron deficiency anemia intolerant to Venofer celiac screen negative Ferlicit x 2 this admission most recent ferritin 31 and slowly improving from low of 8 in October 2021 Plan not ready for d/c due to ongoing pain control problems and need for ongoing surveillance of L foot attempted to call pt's , no answer (06/21) Admission and Anticipated Discharge Date Admission Date: June 06, 2022 Subjective early this am, while patient was NPO for Castro catheter removal, the patient changed her mind and asked that the catheter remain surgery with Dr Monet canceled during rounds patient was sobbing/crying she kept stating over and over "I just can't do this any more" she was extremely sad, stating that she can't take the pain any longer in her left foot she then went on to show me pictures she had taken either yesterday or today of the foot these showed mild amount of erythema at the operative site of the great toe she is upset her antibiotics have been stopped she feels she has ongoing infection she also feels that everyone in [facility] is judging her because of needing pain medication for her pain I reassured her that we are all here to help her through her illness and do whatever it takes to comfortably get her through this post-op period I had [address] Noriega from podiatry re: her care He is satisfied with the appearance of her operative site I also spoke with Dr Monet by phone Review of Systems Review of Systems: gen - no fevers or chills; eating poorly cv - no chest pain pulm - no dyspnea GI - no abd pain psych - very sad and anxious Physical Exam Physical Exam: gen - crying, very upset, but NAD mouth - MMM neck - no JVD heart - RRR, s1 s2, no murmur lungs - CTA b/l abd - soft NT ND BS+ ext - right BKA; left foot wrapped in Coban dressing; pulses palpable of the l eft foot thru the Coban, 2+; distal leg above dressings wnl with normal cap refill, etc psych - depressed, tearful; a/o x 3 skin - right tunneled Castro catheter R chest clean, no erythema Results & Data Results & Data ([facility]) Vital Signs (Past 12 Hours) Vital Signs Temp Pulse Resp BP Pulse Ox O2 Del Method 06/21/22 15:11 37.0 C 74 16 153/71 H 92 Room Air 06/21/22 11:35 Room Air 06/21/22 08:49 189/83 H 06/21/22 07:09 37.4 C 92 H 16 166/84 H 94 Room Air Laboratory Results Laboratory Results - last 24 hr 06/21/22 06/21/22 06/21/22 08:05 10:33 16:57 POC Glucose 109 H 108 H 134 H 11/09/22 21:08 POC Glucose 188 H PG Care Time/CCT Total # of Minutes Spent Total Time Spent with Patient: Total time spent is greater than 50% in coordination of care (as documented) at patient's floor/unit and/or counseling patient: Coding Level of Care Code 48164 Subseq Hosp Care Lvl 3 Diagnoses Ulcer of left great toe due to diabetes mellitus E11.621; L97.529 Acute leg pain M79.606 Cellulitis of left foot L03.116 Diabetes mellitus type 2, uncontrolled E11.65 Nausea R11.0 MRSA (methicillin resistant staph aureus) culture positive Z22.322 PAD (peripheral artery disease) I73.9 Anxiety F41.9 Depression F32.9 Diabetic peripheral neuropathy E11.42 Chronic pain syndrome G89.4 Poor venous access I87.8 B12 deficiency E53.8 Shoulder pain M25.519 Vitamin D deficiency E55.9 Anemia D64.9
[2022-06-21] MEDS: oxyCODONE HCL 10 MG TABCR (OxyCONTIN) PO SCH (20:58)
[2022-06-21] MEDS: rOPINIRole HCL 2 MG TABLET PO SCH (20:59)
[2022-06-21] MEDS: SERTRALINE HCL 50 MG TABLET PO SCH (20:59)
[2022-06-21] MEDS: ZOLPIDEM TARTRATE 10 MG TAB PO PRN (21:00)
[2022-06-22] MEDS: ONDANSETRON INJ 2 MG/ML 2 ML VIAL IV PRN ×4 (00:50→17:03)
[2022-06-22] MEDS: HYDROmorphone INJ 1 MG/ML SYRINGE IV PRN ×11 (00:50→23:35)
--- NOTE | 2022-06-22 07:42 | Orthopedic Progress Note ---
Date of Service June 22, 2022 Assessment & Plan (1) Ulcer of left great toe due to diabetes mellitus: Plan: Patient seen, evaluated, and treated. Significant time was spent with Patient discussing her concerns and reviewing previous failed out comes. She is at severe risk for loss of limb. We reviewed common goals of prevention of further amputations and making sure she is comfortable and not in unwanted discomfort. The later being completed in a safe manor. We discussed the excellent team of doctors and nurses at [facility] all with this common goal. I did review with Patient dressing previously covering incision site has been manipulated to expose this area. The previously applied coban remains intact at all other areas of foot. Additional coban is applied to reinforce the previously applied dressing. There is concern the incision site is being manipulated by Patient. I did discuss pain control with Patient. If needed for strike through pain I am able to provide ankle block. Patient declines local anesthesia block of foot. I will continue to follow while in house. Admission and Anticipated Discharge Date Admission Date: June 06, 2022 Subjective Patient seen at bedside status post left foot surgery DOS 06/13/22. Patient is upset at today's encounter and concerned about her pain control medication. She prefers it to be given immediately at the 2 hour asa and is concerned it may be delayed. Physical Exam Physical Exam: Dressing has been manipulated to expose incision site. Results & Data ([facility]) Vital Signs (Past 12 Hours) Vital Signs Temp Pulse Resp BP Pulse Ox Pulse Ox O2 Del Method 06/22/22 07:07 36.8 C 91 H 16 160/99 H 98 Room Air 06/21/22 21:00 Room Air 06/21/22 21:00 94 06/21/22 21:10 36.8 C 70 18 124/79 94 Room Air O2 Del Method 06/22/22 07:07 06/21/22 21:00 06/21/22 21:00 Room Air 06/21/22 21:10
[2022-06-22] MEDS: INSULIN ASPART PER UNIT SC SCH ×4 (09:09→21:25)
[2022-06-22] MEDS: CLOPIDOGREL BISULFATE 75 MG TAB PO SCH (09:28)
[2022-06-22] MEDS: CYANOCOBALAMIN (B-12) 500 MCG TABLET PO SCH (09:28)
[2022-06-22] MEDS: CHOLECALCIFEROL 1,000 UNITS 25 MCG TAB PO SCH (09:28)
[2022-06-22] MEDS: ASPIRIN 81 MG ECTAB PO SCH (09:28)
[2022-06-22] MEDS: dilTIAZem HCL 30 MG TAB PO SCH ×3 (09:28→17:18)
[2022-06-22] MEDS: ADVANCED PROBIOTIC 1250 MG CAPSULE PO SCH (09:29)
[2022-06-22] MEDS: hydrOXYzine HCl 25 MG TAB PO SCH ×2 (09:29→21:10)
[2022-06-22] MEDS: DICLOFENAC SOD 1% GEL 100 GM TUBE EXT SCH ×4 (09:29→21:00)
[2022-06-22] MEDS: METOPROLOL SUCC 50MG EXT REL TAB PO SCH (09:29)
[2022-06-22] MEDS: ENOXAPARIN INJ 40 MG/0.4 ML SYR SQ SCH (09:29)
[2022-06-22] MEDS: LANTUS PER UNIT CHARGE SQ SCH (09:29)
[2022-06-22] MEDS: PANTOprazole 40 MG TAB PO SCH ×2 (09:30→21:08)
[2022-06-22] MEDS: MULTIVITAMIN TAB PO SCH (09:30)
[2022-06-22] MEDS: oxyCODONE HCL 10 MG TABCR (OxyCONTIN) PO SCH ×2 (09:30→21:09)
[2022-06-22] MEDS: PREGABALIN 100 MG CAP PO SCH ×3 (09:30→21:09)
[2022-06-22 09:59] LABS: Basophils # (auto) 0.12 K/uL (0-0.2); Eosinophils # (auto) 0.84 K/uL (0-0.50); Eosinophils % (auto) 6.7 %; Hematocrit (blood only) 34.5 % (34.1-44.9); Hemoglobin 11.2 g/dl (12.0-16.0); Immature Granulocytes # (auto) 0.04 K/uL (0.00-0.02); Immature Granulocytes % (auto) 0.3 %; Lymphocytes # (auto) 2.11 K/uL (1.2-3.4); Lymphocytes % (auto) 16.7 %; Mean Corpuscular Hemoglobin 26.3 pg (25.0-34.0); Mean Corpuscular Hgb Conc 32.5 g/dL (32.0-36.0); Mean Platelet Volume 9.8 fL (9.4-12.3); Monocytes # (auto) 0.92 K/uL (0.24-0.82); Monocytes % (auto) 7.3 %; Neutrophils # (auto) 8.57 K/uL (1.4-6.5); Platelet Count 352 K/uL (130-400); RDW Coefficient of Variation 15.4 % (11.5-14.5); RDW Standard Deviation 45.4 fL (36.4-46.3); Red Blood Count 4.26 M/uL (3.93-5.22)
[2022-06-22 10:18] LABS: C Reactive Protein 0.86 mg/dl (0-0.5); Calcium 9.7 mg/dl (8.5-10.1); Creatinine Clr Calc Pharmacy 103.7 ml/min; Est GFR (African American) 119.8 ml/min; Est GFR (Non-African American) 103.4 ml/min; Potassium 4.1 mmol/L (3.5-5.1)
--- NOTE | 2022-06-22 12:38 | Hospitalist Progress Note ---
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 Initially placed on Ceftriaxone 2gm IV/Doxycycline 100mg Poor vascular access/PAD at baseline --> Dr Monet consulted last week, patient underwent placement of castro catheter R IJ--> will need flushes once completed abx MRI IMPRESSION with concerns for minimal marrow edema of first distal phalangeal tuft with preserved T1 signal suggestive of osteitis. Early osteo could appear similarly. Dr Mathew Noriega consulted from podiatry POD #9 s/p Fillet of left distal great toe with Dr Noriega Pathology report - underlying bone appears viable and changes of osteomyelitis are NOT seen Culture from 06/13 from the left great toe negative for any specific pathogen Completed her IV antibiotics 06/20/22 Orthotics consulted and fit her surgical shoe-- patient refused CAM boot; has a post-op surgical shoe but she is inconsistent with wearing it Vit D low, replacement ordered and can continue Dr Noriega saw patient again today - left foot redressed by him; there is concern that patient is manipulating the dressing I am at a loss with respect to her pain control; to that end I consulted pain management for assistance Of note -- crp slightly high today, wbc slightly higher as well - significance uncertain, but will trend (2) Acute leg pain: Plan: Lyrica increased to 100mg TID this admission. She is requesting IV dilaudid 1mg every 2 hours nearly scheduled. During prior admission in April she was seen by pain management - they advised Oxycontin 10mg BID. She would benefit from basal/long-acting pain meds. Thus started oxycontin 10mg BID evening of 06/21/22. Consider an anti-inflammatory med such as celebrex BID. Of note, patient uses medical marijuana at home -- prior provider discussed to bring for lock box if ever hospitalized again for pain control. As noted in #1 I asked pain management to see in consultation for any additional recs. Appreciate their consultation. Dr Noriega has also offered her an ankle block - thus far continues to refuse such. (3) Cellulitis of left foot: Plan: resolved, she is off abx at this time trend cbc, crp as noted above serial exams (4) Diabetes mellitus type 2, uncontrolled: Plan: A1c 8.7% in March 2022 and all prior a1c's uncontrolled cont lantus 10 units daily cont novolog achs BSGs remain <200 (5) Nausea: Plan: 2nd to narcotics probable underlying gastroparesis use zofran or reglan prn (6) MRSA (methicillin resistant staph aureus) culture positive: Plan: Hx of from L foot prior cx in February - all abx d/c on 06/20/22 (7) PAD (peripheral artery disease): Plan: Continue aspirin and clopidogrel Quit smoking >1 year ago, does apparently use marijuana vape pens -- will need to ask about medical card --> SEE ABOVE, MMJ CARD, uses tinctures, RSO, topicall creams for additional pain relief Ideally should be on statin therapy 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 and prior tobacco usage (8) Anxiety: Plan: Cont hydroxyzine but lower the HS dose to 25mg due to introduction of oxycontin Cont lorazepam prn Cont sertraline and zolpidem If mood issues persist will ask psychiatry to see again in consult (9) Depression: Plan: INCREASED ZOLOFT 50mg --> tolerating well, continue at discharge f/u PCP for further dose titration If issues persist while hospitalized, however, will ask psych to see (10) Diabetic peripheral neuropathy: Plan: Continue pregabalin and ropinirole checked B12 w/ AM labs-- LOW NORMAL, REPLACEMENT ORDERED while inpatient and continue at d/c Continue increased Lyrica as above, MMJ outpatient creams (11) Chronic pain syndrome: Plan: As above pain management consulted today (12) Poor venous access: Plan: S/P MIKAELA W/ DR MONET earlier this stay was to have this removed 06/21 but at last moment she requested the Castro remain in place she is now complaining of pain and a lumb over the base of the right neck will obtain doppler of RUE - r/o thrombus (13) B12 deficiency: Plan: B12 low normal 261, replacement ordered would continue at d/c x 1 year (14) Shoulder pain: Plan: Calcific tendinopathy seen on x-rays -- right shoulder f/u with ortho if persistent pain - x-rays c/w chronic tendonitis and/or bursitis (15) Vitamin D deficiency: Plan: 25-OH vit D level 20 this admission cont replacement (16) Anemia: Plan: hx iron deficiency anemia intolerant to Venofer celiac screen negative Ferlicit x 2 this admission most recent ferritin 31 and slowly improving from low of 8 in October 2021 Plan not ready for d/c due to ongoing pain control problems and need for ongoing surveillance of L foot attempted to call pt's , no answer (06/21) but did speak with him this evening, 06/22, questions answered; plan of care reviewed Admission and Anticipated Discharge Date Admission Date: June 06, 2022 Subjective patient very upset during my visit she was sobbing and crying, very very upset, stating she can't go on like this due to LLE pain worst pain is at the expected location of the operative site and extends along the top of the foot towards the distal medial barbosa pain is 10/10 - dilaudid IV brings the pain down to <5/10 she thinks the addition of the oxycontin has helped she continues to feel strongly that we are not doing enough to help her pain she feels that people are treating her "like an addict" she simply wants to be comfortable she wants to go home her Castro catheter is bothering her again she states she has swelling/"a lump" at the base of the right neck she regrets not having the catheter removed yesterday she is eating very little due to the severity of her pain has nausea but no vomiting denies pain in any location besides the left foot Review of Systems Review of Systems: gen - no fevers, no chills, exhausted/tired psych - anxious, depressed, not sleeping cv - no pain pulm - no dyspnea GI - no diarrhea neuro - having "phantom limb" pain right leg Physical Exam Physical Exam: gen - crying, very upset again mouth - MMM neck - no JVD heart - RRR, s1 s2, no murmur lungs - CTA b/l abd - soft NT ND BS+ ext - right BKA; left foot wrapped in Coban dressing; pulses palpable of the left foot thru the Coban, 2+; distal leg above dressings wnl with normal cap refill, etc musculo - no palpable cord of distal LLE; no abnormalities or swelling of left calf; no erythema of distal left barbosa psych - depressed, tearful; a/o x 3 skin - right tunneled Castro catheter R chest clean, no erythema; the area of concern is where the tunneled catheter appears to dive deeper at the base of the anterior right neck; I don't feel a clot; there is a tiny open sore overlying the expected location of the line but no abscess Results & Data Results & Data ([facility]) Vital Signs (Past 12 Hours) Vital Signs Temp Pulse Resp BP Pulse Ox O2 Del Method 06/22/22 11:55 172/71 H 06/22/22 07:53 170/85 H 06/22/22 07:07 36.8 C 91 H 16 160/99 H 98 Room Air Laboratory Results Laboratory Results - last 24 hr 06/21/22 06/21/22 06/22/22 16:57 21:08 07:52 WBC RBC Hgb Hct MCV MCH MCHC RDW Std Deviation RDW Coeff of Maria Del Carmen Plt Count MPV Immature Gran % (Auto) Neut % (Auto) Lymph % (Auto) Potter % (Auto) Eos % (Auto) Baso % (Auto) Neut # (Auto) Lymph # (Auto) Potter # (Auto) Eos # (Auto) Baso # (Auto) Immature Gran # (Auto) Sodium Potassium Chloride Carbon Dioxide Anion Gap BUN Creatinine Est Cr Clr Drug Dosing Est GFR ( Amer) Est GFR (Non-Af Amer) BUN/Creatinine Ratio Glucose POC Glucose 134 H 188 H 125 H Calcium C-Reactive Protein 06/22/22 06/22/22 06/22/22 09:30 09:30 11:54 WBC 12.60 H RBC 4.26 Hgb 11.2 L Hct 34.5 MCV 81.0 MCH 26.3 MCHC 32.5 RDW Std Deviation 45.4 RDW Coeff of Maria Del Carmen 15.4 H Plt Count 352 MPV 9.8 Immature Gran % (Auto) 0.3 Neut % (Auto) 68.0 Lymph % (Auto) 16.7 Potter % (Auto) 7.3 Eos % (Auto) 6.7 Baso % (Auto) 1.0 Neut # (Auto) 8.57 H Lymph # (Auto) 2.11 Potter # (Auto) 0.92 H Eos # (Auto) 0.84 H Baso # (Auto) 0.12 Immature Gran # (Auto) 0.04 H Sodium 136 Potassium 4.1 Chloride 99 Carbon Dioxide 32 Anion Gap 5 BUN 11 Creatinine 0.55 L Est Cr Clr Drug Dosing 103.7 Est GFR ( Amer) 119.8 Est GFR (Non-Af Amer) 103.4 BUN/Creatinine Ratio 20.0 Glucose 185 H POC Glucose 146 H Calcium 9.7 C-Reactive Protein 0.86 H PG Care Time/CCT Total # of Minutes Spent Total Time Spent with Patient: Total time spent is greater than 50% in coordination of care (as documented) at patient's floor/unit and/or counseling patient: Coding Level of Care Code 91265 Subseq Hosp Care Lvl 3 Diagnoses Ulcer of left great toe due to diabetes mellitus E11.621; L97.529 Acute leg pain M79.606 Cellulitis of left foot L03.116 Diabetes mellitus type 2, uncontrolled E11.65 Nausea R11.0 MRSA (methicillin resistant staph aureus) culture positive Z22.322 PAD (peripheral artery disease) I73.9 Anxiety F41.9 Depression F32.9 Diabetic peripheral neuropathy E11.42 Chronic pain syndrome G89.4 Poor venous access I87.8 B12 deficiency E53.8 Shoulder pain M25.519 Vitamin D deficiency E55.9 Anemia D64.9
[2022-06-22] MEDS: LORazepam 1 MG TAB PO PRN (12:57)
--- NOTE | 2022-06-22 16:19 | Pain Management Consultation ---
Date of Consultation June 22, 2022 Assessment & Plan (1) Amputation of left great toe: (2) Opioid dependence: Plan * Plan to discontinue Dilaudid IV this evening. * Continue OxyContin 10mg BID for a few more days * Resume Percocet 5/5325mg x 6 hours tomorrow. * Patient plans on discharge for tomorrow afternoon. Patient is argumentative and rude towards me. She threatens leaving AMA if she does not receive any more IV Dilaudid. I explained to the patient that it is not appropriate to given her IV Dilaudid and then discharge right to home. It is recommended to make sure she can tolerate 24 hours of oral narcotics without IV medication for breakthrough prior to discharge. Patient is in disagreement of this stating that she always does fine with her pain with abruptly discontinuing IV Dilaudid. I will discontinue the IV Dilaudid at midnight and order her chronic Percocet. Patient is understanding although upset. History of Present Illness Attending Physician: Silvestre Carvajal History of Present Illness Mrs. Witt is a 57-year-old female that had her left great toe amputated by Dr. Noriega on 06/13/2022. Patient does continue to struggle with postoperative pain similarly to previous amputations. She describes a sharp burning pain at the left great toe. Outpatient she is taking Percocet 5/325 4 times daily with adequate pain relief. Yesterday she was placed on OxyContin 10 mg twice daily with some relief. Patient does continue to utilize IV Dilaudid 1 mg x 2 hours as written. Patient is ready for discharge tomorrow afternoon. She continues to insist that she will stop the use of IV Dilaudid and and be okay to transition onto oral narcotics. Patient is sleeping on arrival with reported 05/22 pain. Allergies Allergy/AdvReac Type Severity Reaction Status Date / Time morphine Allergy Severe blisters Verified 06/06/22 21:09 in mouth Sulfa (Sulfonamide Allergy Severe rash/swelli Verified 06/06/22 21:09 Antibiotics) ng iron [From Venofer] Allergy Intermediate Hypertensio Verified 06/06/22 21:09 n vancomycin Allergy Intermediate YULIYA Verified 06/06/22 21:09 SYNDROME---CAN TAKE IF VERY SLOW DRIP. amoxicillin [From Augmentin] Allergy Mild itching/power Verified 06/06/22 21:09 h clavulanic acid Allergy Mild itching/power Verified 06/06/22 21:09 [From Augmentin] h dermabond AdvReac excoriates Uncoded 06/06/22 21:09 skin Home Medications Medication Instructions Recorded Confirmed Type ropinirole 2 mg tablet 4 mg PO HS 10/19/20 06/06/22 History metoprolol succinate 50 mg 50 mg PO QAM 03/05/21 06/06/22 History tablet,extended release 24 hr (Toprol XL) lorazepam 1 mg tablet (Ativan) 1 mg PO TID PRN Anxiety 11/04/21 06/06/22 History cyclobenzaprine 10 mg tablet 10 mg PO BID PRN Muscle Spasm 11/24/21 06/06/22 History insulin glargine 100 unit/mL (3 20 unit subcut HS 03/08/22 06/06/22 History mL) subcutaneous pen (Lantus Solostar U-100 Insulin) insulin lispro 100 unit/mL 5 unit subcut TIDM 03/08/22 06/06/22 History subcutaneous pen ondansetron 8 mg disintegrating 8 mg translingual TID PRN Nausea 03/08/22 06/06/22 History tablet zolpidem 10 mg tablet 10 mg PO HS PRN Sleep 03/08/22 06/06/22 History clopidogrel 75 mg tablet 75 mg PO QAM #30 tabs 03/30/22 06/06/22 Rx aspirin 81 mg tablet,delayed 81 mg PO DAILY #30 tabs 04/20/22 06/06/22 Rx release (Melissa Low Dose Aspirin) hydroxyzine HCl 25 mg tablet 25 mg PO QAM #90 tabs 04/20/22 06/06/22 Rx multivitamin with folic acid 400 1 tab PO QAM #30 tabs 04/20/22 06/06/22 Rx mcg tablet (Daily-Werner (with folic acid)) sertraline 50 mg tablet 25 mg PO HS #27 tabs 04/20/22 06/06/22 Rx oxycodone-acetaminophen 10 mg-325 1 tab PO Q4H PRN pain #30 tabs 05/09/22 06/06/22 Rx mg tablet (Percocet) pregabalin 75 mg capsule 75 mg PO BID 06/06/22 06/06/22 History Patient History Medical History Acidosis, lactic Acute dehydration 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 No issues per anesthesia postop progress note. Anemia Cellulitis Chronic back pain Chronic pain syndrome Costochondritis COVID-19 Depression Diabetes mellitus type 2, uncontrolled Diabetic peripheral neuropathy Diastolic CHF DM2 (diabetes mellitus, type 2) IDDM, A1c 07/2021-11% Gastritis Gastroenteritis GIB (gastrointestinal bleeding) History of amputation of great toe HTN (hypertension) Hyperlipidemia Hyponatremia Infection of left great toe due to methicillin resistant Staphylococcus aureus (MRSA) Insomnia Insulin dependent diabetes mellitus Iron deficiency anemia Nonobstructive atherosclerosis of coronary artery Numbness of lower extremity Opiate abuse, continuous Opiate dependence Opioid dependence Osteomyelitis of great toe of left foot Peripheral neuropathy Right second toe ulcer Seizures Sepsis Surgical History History of esophagogastroduodenoscopy (EGD) History of right below knee amputation (12/22/21) Right Below Knee Amputation(Right) - Davon Good MD, FACS Family History Mother , age 63 Myocardial infarction Father , age 68 or 69 Myocardial infarction Brother S/P CABG (coronary artery bypass graft) Sister Myocardial infarction x 3; she is 57yo Social History Smoking Status: Current some day smoker Tobacco Type: Cigarettes packs per day: 0.5; Cigarettes Per Day: 20; Second Hand Exposure: No; Hx Alcohol Use: No Hx Substance Use: Yes Prescribed Medications: Marijuana Substance Use Type Other:: medical marijuana Preferred Language: Welsh Communication Ability: Effective Visual Impairment: No Limitations Hearing Ability: Normal Manager Payroll Required: No Beliefs That Will Affect Care: None marital status: Current Living Situation: Spouse current occupational status: unemployed 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 other: raising a grandchild as well; lives in [place] Feels Safe at Home: Yes Safety Concerns: Feels Safe At This Time during the past year weight has: remained stable Assistive Devices: Prosthesis, Walker and Wheelchair Physical Exam Physical Exam: GENERAL: This is a 57 year old female that is sleeping on arrival. When woken up she is tearful and crying. In no acute distress. HEAD/FACE: Normocephalic and atraumatic. EYES: No drainage or conjunctival injection. ENT: Nose without bleeding or discharge. Oral mucosa moist. NECK: Full ROM without apparent pain. No swelling or masses noted. RESPIRATORY: Patient with unlabored breathing. No signs of respiratory distress. CHEST/AXILLA: Chest movement symmetrical. No deformities noted. BACK: Moves without difficulty SKIN: [place], warm and dry. No rash noted. MS/EXTREMITY: No swelling, no deformities. Right BKA. Left foot bandaged. NEURO: Alert and appears oriented. Speech is fluent. Cranial Nerves are grossly intact.
[2022-06-22] MEDS: ACETAMINOPHEN 325 MG TAB PO PRN (17:04)
--- NOTE | 2022-06-22 19:44 | Orthopedic Progress Note ---
Date of Service June 22, 2022 Assessment & Plan (1) Ulcer of left great toe due to diabetes mellitus: Plan: Patient seen, evaluated, and treated. There is concern that Patient may be removing dressing despite instructions to leave dressing intact. I did reapply ABD and coban dressing to surgical foot. We did discuss need to leave dressing intact. Patient states she believes dressing may become opened after walking on it with out surgical shoe. This explanation is unlikely due to it has been only removed directly over surgical site. She declines use of surgical shoe in future. We discussed Patient concern with pain control . I again offered local anesth esia which patient declined. Will continue to follow while Patient is in house. Admission and Anticipated Discharge Date Admission Date: June 06, 2022 Subjective Patient seen this evening at bedside with her present who helps with history and care. Patient reports she has been weight bearing in surgical dressing with no surgical shoe against medical advice. Physical Exam Physical Exam: Patient dressing has been removed distally over surgical site. Results & Data ([facility]) Vital Signs (Past 12 Hours) Vital Signs Temp Pulse Resp BP Pulse Ox O2 Del Method 06/22/22 17:17 135/81 06/22/22 14:14 36.6 C 85 16 165/72 H 98 Room Air 06/22/22 11:55 172/71 H 06/22/22 07:53 170/85 H
[2022-06-22] MEDS: rOPINIRole HCL 2 MG TABLET PO SCH (21:08)
[2022-06-22] MEDS: SERTRALINE HCL 50 MG TABLET PO SCH (21:08)
[2022-06-22] MEDS: ZOLPIDEM TARTRATE 10 MG TAB PO PRN (23:06)
[2022-06-23] MEDS: oxyCODONE/ACETAMINOPHEN 5mg/325mg TAB PO PRN ×3 (02:46→14:43)
[2022-06-23] MEDS: LORazepam 1 MG TAB PO PRN ×2 (04:46→15:04)
[2022-06-23] MEDS: ONDANSETRON INJ 2 MG/ML 2 ML VIAL IV PRN ×3 (06:12→23:03)
--- NOTE | 2022-06-23 07:26 | Ultrasound Report ---
RETROPULSION THE VENOUS DOPPLER ULTRASOUND CLINICAL HISTORY: tunneled central line; pain/swelling R neck; ?DVT COMPARISON STUDY: No previous studies for comparison. TECHNIQUE: Sonography of the deep venous system of the right upper extremity was performed. FINDINGS: Right internal jugular central line is in place. There is a focus of nonocclusive thrombus along the catheter within the right internal jugular vein. No additional sites of deep venous thrombu s within the right upper extremity are present. Remainder of the vessels are patent. IMPRESSION: Focus of nonocclusive thrombus along the catheter within the right internal jugular vein . No additional sites of deep venous thrombus within the right upper extremity. ACT 112: Negative or not required by law. Electronically signed by: Wilver Powell M.D. 06/23/2022 7:25 AM
[2022-06-23] MEDS: DICLOFENAC SOD 1% GEL 100 GM TUBE EXT SCH ×4 (07:55→21:09)
[2022-06-23] MEDS: oxyCODONE HCL 10 MG TABCR (OxyCONTIN) PO SCH (07:56)
[2022-06-23] MEDS: METOPROLOL SUCC 50MG EXT REL TAB PO SCH (07:56)
[2022-06-23] MEDS: PREGABALIN 100 MG CAP PO SCH ×3 (07:56→20:56)
[2022-06-23] MEDS: CYANOCOBALAMIN (B-12) 500 MCG TABLET PO SCH (07:56)
[2022-06-23] MEDS: ASPIRIN 81 MG ECTAB PO SCH (07:57)
[2022-06-23] MEDS: dilTIAZem HCL 30 MG TAB PO SCH ×4 (07:57→16:32)
[2022-06-23] MEDS: ADVANCED PROBIOTIC 1250 MG CAPSULE PO SCH (07:57)
[2022-06-23] MEDS: MULTIVITAMIN TAB PO SCH (07:57)
[2022-06-23] MEDS: CLOPIDOGREL BISULFATE 75 MG TAB PO SCH (07:57)
[2022-06-23] MEDS: ENOXAPARIN INJ 40 MG/0.4 ML SYR SQ SCH (07:58)
[2022-06-23] MEDS: hydrOXYzine HCl 25 MG TAB PO SCH ×2 (07:58→20:59)
[2022-06-23] MEDS: LANTUS PER UNIT CHARGE SQ SCH (08:42)
[2022-06-23] MEDS: INSULIN ASPART PER UNIT SC SCH ×4 (08:42→20:58)
[2022-06-23] MEDS: PANTOprazole 40 MG TAB PO SCH ×2 (08:44→21:09)
[2022-06-23] MEDS: CHOLECALCIFEROL 5,000 UNITS 125 MCG TAB PO SCH (08:44)
[2022-06-23] MEDS ORDERED: Heparin IV Adult Wt-Based Standard *NO* Bolus Protocol IV SCH (09:30)
[2022-06-23] MEDS: HEPARIN SODIUM/DEXTROSE 25,000 UNITS/500 ML BAG IV SCH (09:56)
[2022-06-23] MEDS ORDERED: KETOROLAC TROMETHAMINE 15 MG/ML VIAL IV ONE (10:19)
[2022-06-23] MEDS ORDERED: oxyCODONE HCL IR 5 MG TAB (IMMEDIATE RELEASE) PO STA ×2 (10:19→16:22)
--- NOTE | 2022-06-23 10:40 | Surgery Consultation ---
Date of Consultation June 23, 2022 Assessment & Plan (1) Internal jugular (IJ) vein thromboembolism, acute: This is a 57yF known to our service as she underwent a R BKA with Dr. Good on 12/22/21. She has since has left lower extremity wounds that are being managed by podiatry, ortho, wound care, and abx management. We have been consulted for R IJ castro catheter removal as she no longer requires it for abx. It is also now associated with a thrombus along the catheter within the right IJ. Has been previously seen by vascular with refusal for them to remove, therefore we are involved in patient's care. She knows Dr. Good from prior surgical history and is agreeable with him removing it in the OR today under local sedation. Last ate some bites of epstein this AM. Will discuss with anesthesia and OR regarding timing. Supervising Physician Co-Signing Physician Notes As per Ivette Winn physician Patient is very anxious to the point that I can even examine her properly despite lifting her blankets she complains of discomfort therefore we will proceed with that in the main operating room with some sedation Patient had 2 small strips of epstein at 8:00 this morning normally there were no need for any sedation by removing the catheter but given her anxiety we will proceed with an in the OR We will proceed with removal of the Castro catheter right internal jugular patient marked permit signed risk and complication explained to her History of Present Illness Attending Physician: Silvestre Carvajal History of Present Illness This is a 57yF known to our service as she underwent a R BKA with Dr. Good on 12/22/21. She has since has left lower extremity wounds that are being managed. She recently underwent a castro IJ catheter placement with vascular surgery on 06/09/22. She no longer requires it for abx. Unfortunately patient developed pain and swelling in her neck area prompting a duplex to be performed with revealed evidence of thrombus along the catheter within the Right IJ vein. We have been consulted for consideration of removal. Patient is anxious about line removal due to pain control issues. Otherwise she is agreeable for procedure to be performed and understands the reasoning. Allergies Allergy/AdvReac Type Severity Reaction Status Date / Time morphine Allergy Severe blisters Verified 06/06/22 21:09 in mouth Sulfa (Sulfonamide Allergy Severe rash/swelli Verified 06/06/22 21:09 Antibiotics) ng iron [From Venofer] Allergy Intermediate Hypertensio Verified 06/06/22 21:09 n vancomycin Allergy Intermediate YULIYA Verified 06/06/22 21:09 SYNDROME---CAN TAKE IF VERY SLOW DRIP. amoxicillin [From Augmentin] Allergy Mild itching/power Verified 06/06/22 21:09 h clavulanic acid Allergy Mild itching/power Verified 06/06/22 21:09 [From Augmentin] h dermabond AdvReac excoriates Uncoded 06/06/22 21:09 skin Home Medications Medication Instructions Recorded Confirmed Type ropinirole 2 mg tablet 4 mg PO HS 10/19/20 06/06/22 History metoprolol succinate 50 mg 50 mg PO QAM 03/05/21 06/06/22 History tablet,extended release 24 hr (Toprol XL) lorazepam 1 mg tablet (Ativan) 1 mg PO TID PRN Anxiety 11/04/21 06/06/22 History cyclobenzaprine 10 mg tablet 10 mg PO BID PRN Muscle Spasm 11/24/21 06/06/22 History insulin glargine 100 unit/mL (3 20 unit subcut HS 03/08/22 06/06/22 History mL) subcutaneous pen (Lantus Solostar U-100 Insulin) insulin lispro 100 unit/mL 5 unit subcut TIDM 03/08/22 06/06/22 History subcutaneous pen ondansetron 8 mg disintegrating 8 mg translingual TID PRN Nausea 03/08/22 06/06/22 History tablet zolpidem 10 mg tablet 10 mg PO HS PRN Sleep 03/08/22 06/06/22 History clopidogrel 75 mg tablet 75 mg PO QAM #30 tabs 03/30/22 06/06/22 Rx aspirin 81 mg tablet,delayed 81 mg PO DAILY #30 tabs 04/20/22 06/06/22 Rx release (Melissa Low Dose Aspirin) hydroxyzine HCl 25 mg tablet 25 mg PO QAM #90 tabs 04/20/22 06/06/22 Rx multivitamin with folic acid 400 1 tab PO QAM #30 tabs 04/20/22 06/06/22 Rx mcg tablet (Daily-Werner (with folic acid)) sertraline 50 mg tablet 25 mg PO HS #27 tabs 04/20/22 06/06/22 Rx oxycodone-acetaminophen 10 mg-325 1 tab PO Q4H PRN pain #30 tabs 05/09/22 06/06/22 Rx mg tablet (Percocet) pregabalin 75 mg capsule 75 mg PO BID 06/06/22 06/06/22 History Patient History Medical History Acidosis, lactic Acute dehydration 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 No issues per anesthesia postop progress note. Anemia Cellulitis Chronic back pain Chronic pain syndrome Costochondritis COVID-19 Depression Diabetes mellitus type 2, uncontrolled Diabetic peripheral neuropathy Diastolic CHF DM2 (diabetes mellitus, type 2) IDDM, A1c 07/2021-11% Gastritis Gastroenteritis GIB (gastrointestinal bleeding) History of amputation of great toe HTN (hypertension) Hyperlipidemia Hyponatremia Infection of left great toe due to methicillin resistant Staphylococcus aureus (MRSA) Insomnia Insulin dependent diabetes mellitus Iron deficiency anemia Nonobstructive atherosclerosis of coronary artery Numbness of lower extremity Opiate abuse, continuous Opiate dependence Opioid dependence Osteomyelitis of great toe of left foot Peripheral neuropathy Right second toe ulcer Seizures Sepsis Surgical History History of esophagogastroduodenoscopy (EGD) History of right below knee amputation (12/22/21) Right Below Knee Amputation(Right) - Davon Good MD, FACS Family History Mother , age 63 Myocardial infarction Father , age 68 or 69 Myocardial infarction Brother S/P CABG (coronary artery bypass graft) Sister Myocardial infarction x 3; she is 57yo Social History Smoking Status: Current some day smoker Tobacco Type: Cigarettes packs per day: 0.5; Cigarettes Per Day: 20; Second Hand Exposure: No; Hx Alcohol Use: No Hx Substance Use: Yes Prescribed Medications: Marijuana Substance Use Type Other:: medical marijuana Preferred Language: Lithuanian Communication Ability: Effective Visual Impairment: No Limitations Hearing Ability: Normal Feed Inspection Supervisor Required: No Beliefs That Will Affect Care: None marital status: Current Living Situation: Spouse current occupational status: unemployed 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 other: raising a grandchild as well; lives in [place] Feels Safe at Home: Yes Safety Concerns: Feels Safe At This Time during the past year weight has: remained stable Assistive Devices: Prosthesis, Walker and Wheelchair Review of Systems Integumentary: pain up along R side of neck LLE foot pain Physical Exam Physical Exam: awake/alert, appears upset Respiratory: normal respiratory effort Musculoskeletal: s/p R BKA. Left foot in wound bandages Skin: R sided castro in place, no signs of infection Results & Data ([facility]) Vital Signs (Past 12 Hours) Vital Signs Temp Pulse Resp BP Pulse Ox O2 Del Method 06/23/22 07:10 37.0 C 77 16 135/70 97 Room Air Diagnostic Findings RETROPULSION THE VENOUS DOPPLER ULTRASOUND CLINICAL HISTORY: tunneled central line; pain/swelling R neck; ?DVT COMPARISON STUDY: No previous studies for comparison. TECHNIQUE: Sonography of the deep venous system of the right upper extremity was performed. FINDINGS: Right internal jugular central line is in place. There is a focus of nonocclusive thrombus along the catheter within the right internal jugular vein. No additional sites of deep venous thrombus within the right upper extremity are present. Remainder of the vessels are patent. IMPRESSION: Focus of nonocclusive thrombus along the catheter within the right internal jugular vein. No additional sites of deep venous thrombus within the right upper extremity. ACT 112: Negative or not required by law. Electronically signed by: Wilver Powell M.D. 06/23/2022 7:25 AM Dictated:06/23/22722 Transcribed: 06/23/22722 PG Care Time/CCT Total # of Minutes Spent Total Time Spent with Patient: Total time spent is greater than 50% in coordination of care (as documented) at patient's floor/unit and/or counseling patient: Coding Level of Care Code 24136 Inpt Consult Level 3 Diagnoses Internal jugular (IJ) vein thromboembolism, acute [id number].C19
[2022-06-23 10:46] LABS: Basophils # (auto) 0.11 K/uL (0-0.2); Basophils % (auto) 0.7 %; Eosinophils # (auto) 0.88 K/uL (0-0.50); Eosinophils % (auto) 5.5 %; Hematocrit (blood only) 35.8 % (34.1-44.9); Hemoglobin 11.5 g/dl (12.0-16.0); Immature Granulocytes # (auto) 0.06 K/uL (0.00-0.02); Immature Granulocytes % (auto) 0.4 %; Lymphocytes # (auto) 2.63 K/uL (1.2-3.4); Lymphocytes % (auto) 16.4 %; Mean Corpuscular Hemoglobin 26.6 pg (25.0-34.0); Mean Corpuscular Hgb Conc 32.1 g/dL (32.0-36.0); Mean Corpuscular Volume 82.7 fL (80.0-100.0); Mean Platelet Volume 9.7 fL (9.4-12.3); Monocytes # (auto) 1.09 K/uL (0.24-0.82); Monocytes % (auto) 6.8 %; Neutrophils # (auto) 11.25 K/uL (1.4-6.5); Neutrophils % (auto) 70.2 %; Platelet Count 343 K/uL (130-400); RDW Coefficient of Variation 15.2 % (11.5-14.5); RDW Standard Deviation 46.1 fL (36.4-46.3); Red Blood Count 4.33 M/uL (3.93-5.22); White Blood Count 16.02 K/ul (4.8-10.8)
[2022-06-23 11:06] LABS: Partial Thromboplastin Ratio 1.1; Partial Thromboplastin Time 29.6 Seconds (21.0-31.0); Prothrombin Time 10.9 Seconds (9.0-12.0)
--- NOTE | 2022-06-23 11:21 | Hospitalist Progress Note ---
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 Initially placed on Ceftriaxone 2gm IV/Doxycycline 100mg Poor vascular access/PAD at baseline --> Dr Monet consulted last week, patient underwent placement of castro catheter R IJ--> will need flushes once completed abx MRI IMPRESSION with concerns for minimal marrow edema of first distal phalangeal tuft with preserved T1 signal suggestive of osteitis. Early osteo could appear similarly. Dr Mathew Noriega consulted from podiatry POD #10 s/p Fillet of left distal great toe with Dr Noriega Pathology report - underlying bone appeared viable and changes of osteomyelitis were NOT seen Culture from 06/13 from the left great toe negative for any specific pathogen Completed her IV antibiotics 06/20/22 Orthotics consulted and fit her surgical shoe-- patient refused CAM boot; has a post-op surgical shoe but she is not wearing it Vit D low, replacement ordered and can continue Over the last 48 hours the patient's WBC count has trended up and CRP - previously <0.5 - is now modestly elevated Dr Noriega & I inspected the wound today - culture obtained In light of pt's complex infectious history and PAD of her legs opted to resume IV antibiotics today Start daptomycin 4mg/kg IV daily Start rocephin 2gm IV daily Await culture Pain control (2) Internal jugular (IJ) vein thromboembolism, acute: Plan: catheter-associated heparin drip started this am gen surg consulted and they removed her Castro catheter in the OR this afternoon; their assistance GREATLY appreciated per Uptodate lovenox or coumadin x 3 months is preferred Rx plan however, I do not think she would comply with coumadin visits for INR checks and I would be concerned about fluctuating INR levels there is now data, albeit limited, to suggest that DOACs are accepted choice for Rx this would certainly be better from compliance standpoint due to uncertainty surrounding #1 above will cont heparin drip for now (3) Acute leg pain: Plan: Lyrica increased to 100mg TID this admission. She was previously requesting IV dilaudid 1mg every 2 hours nearly scheduled even 7+ days out from her surgery. During prior admission in April she was seen by pain management - they advi sed Oxycontin 10mg BID. She would benefit from basal/long-acting pain meds. Thus started oxycontin 10mg BID evening of 06/21/22. Of note, patient uses medical marijuana at home -- prior provider discussed to bring for lock box if ever hospitalized again for pain control. Patient continues with [id number] 10/10 severe pain. Patient seen by pain management this admission - advised to stop IV dilaudid. Due to ongoing pain, however, will - * increase oxycontin to 15mg BID * increase percocet to 10/325mg q6h prn (4) Cellulitis of left foot: Plan: had resolved abx d/c 06/20/22 now with ?early infection of operative site? abx resumed today rest of foot/ankle/leg wnl (5) Diabetes mellitus type 2, uncontrolled: Plan: A1c 8.7% in March 2022 and all prior a1c's uncontrolled cont lantus 10 units daily cont novolog achs BSGs remain <200 (6) Nausea: Plan: 2nd to narcotics probable underlying gastroparesis use zofran or reglan prn (7) MRSA (methicillin resistant staph aureus) culture positive: Plan: Hx of from L foot prior cx in February repeat culture from L foot sent today (8) PAD (peripheral artery disease): Plan: Continue aspirin and clopidogrel Quit smoking >1 year ago, does apparently use marijuana vape pens -- will need to ask about medical card --> SEE ABOVE, MMJ CARD, uses tinctures, RSO, topicall creams for additional pain relief Ideally should be on statin therapy 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 and prior tobacco usage (9) Anxiety: Plan: Cont hydroxyzine but lowered the HS dose to 25mg due to introduction of oxycontin Cont lorazepam prn Cont sertraline and zolpidem If mood issues persist will ask psychiatry to see again in consult (10) Depression: Plan: INCREASED ZOLOFT 50mg --> tolerating well, continue at discharge f/u PCP for further dose titration If issues persist while hospitalized, however, will ask psych to see (11) Diabetic peripheral neuropathy: Plan: Continue pregabalin and ropinirole checked B12 w/ AM labs-- LOW NORMAL, REPLACEMENT ORDERED while inpatient and continue at d/c Continue increased Lyrica as above, MMJ outpatient creams (12) Chronic pain syndrome: Plan: As above pain management consult appreciated see above re: pain meds (13) Poor venous access: Plan: S/P CASTRO W/ DR MONET earlier this stay was to have this removed 06/21 but at last moment she requested the Castro remain in place then, 06/22, complaining of significant pain at base of neck doppler obtained - right IJ thrombus detected see #2 above (14) B12 deficiency: Plan: B12 low normal 261, replacement ordered would continue x 1 year (15) Shoulder pain: Plan: Calcific tendinopathy seen on x-rays -- right shoulder f/u with ortho if persistent pain - x-rays c/w chronic tendonitis and/or bursitis (16) Vitamin D deficiency: Plan: 25-OH vit D level 20 this admission cont replacement vit D 5000 units daily (17) Anemia: Plan: hx iron deficiency anemia intolerant to Venofer celiac screen negative Ferlicit x 2 this admission most recent ferritin 31 and slowly improving from low of 8 in October 2021 Plan extensively updated by phone this evening complex care coordination with multiple visits, multiple discussions with consultants, etc -- 90 minutes today Admission and Anticipated Discharge Date Admission Date: June 06, 2022 Subjective multiple visits to pt's room today first visit was this am during that visit I explained the detection of her right IJ DVT explained pathophysiology of this and need for removal of her Castro catheter explained role of anticoagulation (heparin drip started) she was distraught about this news - very upset during the visit gen surg came to bedside as well and explained that they would be removing the catheter later today after gen surg left the patient voiced ongoing severe pain in her left foot explained that current regimen of oxycontin BID + percocet q6h prn was ineffective she asked for additional pain relief about the same time the IV team arrived to place a peripheral IV ordered 1x dose of IV dilaudid about this time patient subsequently received her new peripheral IV later in the day the patient was taken to the OR and her Castro catheter was removed without incident about 530pm Dr Noriega from podiatry and myself went to bedside dressings removed from left foot patient with mild-moderate erythema of the operative site, just proximal to the incision sutures intact there was ?hair intertwined in her operative site? Dr Noriega irrigated and cleaned the wound/incision Culture obtained and sent to lab see PE section for my exam findings after foot was redressed again Ms Eduar expressed that she "couldn't go on like this in pain" and asked for additional pain relief she continues to NOT use the surgical shoe on the left foot when she weight bears Review of Systems Review of Systems: gen - no fevers cv - no cp pulm - no dyspnea GI - nausea psych - anxiety, despondent, tearful, poor sleep Physical Exam Physical Exam: gen - crying, very upset again like yesterday, uncomfortable mouth - MMM neck - no JVD heart - RRR, s1 s2, no murmur lungs - CTA b/l ext - right BKA; left foot dressings removed; pulses of left foot 2+; cap refill 2 sec of foot and remaining toes; operative site/incision with intact sutures; just proximal to suture line there is about 3-4mm of mild-moderate erythema; no kailash odor or drainage; mid-foot - 1 single streak of erythema but no cellulitis; ankle without synovitis or erythema; distal left leg/barbosa wnl psych - depressed, tearful; a/o x 3 skin - right tunneled Castro catheter site now covered with dressing; catheter now absent Results & Data Results & Data ([facility]) Vital Signs (Past 12 Hours) Vital Signs Temp Pulse Resp BP Pulse Ox O2 Del Method 06/23/22 07:10 37.0 C 77 16 135/70 97 Room Air Laboratory Results Laboratory Results - last 24 hr 06/22/22 06/22/22 06/22/22 11:54 16:58 20:56 WBC RBC Hgb Hct MCV MCH MCHC RDW Std Deviation RDW Coeff of Maria [place] Plt Count MPV Immature Gran % (Auto) Neut % (Auto) Lymph % (Auto) [place] % (Auto) Eos % (Auto) Baso % (Auto) Neut # (Auto) Lymph # (Auto) [place] # (Auto) Eos # (Auto) Baso # (Auto) Immature Gran # (Auto) PT INR APTT PTT Ratio POC Glucose 146 H 141 H 111 H 06/23/22 06/23/22 06/23/22 07:50 10:31 10:31 WBC 16.02 H RBC 4.33 Hgb 11.5 L Hct 35.8 MCV 82.7 MCH 26.6 MCHC 32.1 RDW Std Deviation 46.1 RDW Coeff of [place] 15.2 H Plt Count 343 MPV 9.7 Immature Gran % (Auto) 0.4 Neut % (Auto) 70.2 Lymph % (Auto) 16.4 [place] % (Auto) 6.8 Eos % (Auto) 5.5 Baso % (Auto) 0.7 Neut # (Auto) 11.25 H Lymph # (Auto) 2.63 [place] # (Auto) 1.09 H Eos # (Auto) 0.88 H Baso # (Auto) 0.11 Immature Gran # (Auto) 0.06 H PT 10.9 INR 1.0 APTT 29.6 PTT Ratio 1.1 POC Glucose 134 H Diagnostic Findings Venous Doppler Study 06/06/22 19:56 LEFT LOWER EXTREMITY VENOUS DOPPLER HISTORY: Left lower extremity pain. COMPARISON STUDY: None. FINDINGS: There is normal compressibility, flow, and augmentation within the left lower extremity deep venous system. IMPRESSION: No DVT within the left lower extremity. ACT 112: Negative or not required by law. Electronically signed by: Ernst Murray M.D. 06/06/2022 8:51 PM Foot MRI 06/08/22 11:50 MR foot LT w/o con HISTORY: 57 years-old Female osteomyelitis chronic left foot pain with clinical concern for osteomyelitis COMPARISON: Foot radiographs 04/27/2022, MRI left foot 04/10/2022 TECHNIQUE: Multiplanar multisequence MRI of the left foot was obtained without the use of IV contrast. FINDINGS: Motion degraded exam. There is only minimal marginal spurring throughout the imaged foot. Joint spaces are relatively well-preserved. Lisfranc articulation is preserved. The imaged flexor and extensor tendons appear intact. Plantar plates appear intact. Mild adventitial bursitis of the forefoot. Subcutaneous edema of the talus, most pronounced within the great toe. No focal fluid collection. No acute fracture or dislocation. Edema noted beneath the great toe nailbed. Minimal marrow edema of the great toe distal phalangeal tuft with preserved T1 marrow signal and no osseous erosion. IMPRESSION: 1. Suggested cellulitis of the forefoot, most pronounced within the great toe with probable associated paronychia. No abscess. 2. Minimal marrow edema of the first distal phalangeal tuft with preserved T1 signal suggestive of osteitis. Early osteomyelitis could appear similarly. No osseous erosions identified. ACT 112: Negative or not required by law. The above report was generated using voice recognition software. It may contain grammatical, syntax or spelling errors. Electronically signed by: Puneet Howard M.D. 06/08/2022 2:23 PM Chest X-Ray 06/17/22 08:36 XR chest 1V portable CLINICAL HISTORY: R shoulder pain TECHNIQUE: Single frontal radiograph of the chest was obtained. Comparison: Comparison is made to chest radiograph 04/27/2022 FINDINGS: A right venous catheter terminates in the mid SVC. The cardiomediastinal silhouette is normal. The lungs are clear. No evidence of pleural effusion or pneumothorax. IMPRESSION: No acute chest disease. Previously noted pleural effusions are no longer seen. ACT 112: Negative or not required by law. Electronically signed by: Neil Mendieta M.D. 06/17/2022 4:32 PM Shoulder X-Ray 06/17/22 08:36 XR shoulder RT min 2V routine CLINICAL HISTORY: R shoulder pain TECHNIQUE: 3 views of the right shoulder were obtained. Comparison: Comparison is made to chest radiograph 06/17/2022 FINDINGS: There is no evidence of an acute fracture. Joint spaces are well-preserved. Calcific tendinopathy is seen. Incidental note is made of a right venous catheter. IMPRESSION: No evidence of acute osseous injury. ACT 112: Negative or not required by law. Electronically signed by: Neil Mendieta M.D. 06/17/2022 11:[address] 06/18/22 13:02 CT OF THE CHEST WITH IV CONTRAST CLINICAL HISTORY: Right upper chest discomfort, recent Castro, hx nodule COMPARISON STUDY: Chest CT January 11, 2022 and chest radiograph June 17, 2022. TECHNIQUE: Following IV administration of 88 mL of Optiray, helical axial images of the chest were obtained. Sagittal and coronal reconstructions were viewed as well as maximal intensity projections on an independent 3-D workstation. Automated exposure control was utilized for the study. A dose lowering technique was utilized adhering to the principles of ALARA. CT DOSE: 296.54 mGy.cm FINDINGS: A right internal jugular central venous catheter is in place. This is appropriately positioned. There is no pneumothorax. There is mild stranding within the subcutaneous small adjacent to the catheter. No fluid collection is present. The catheter is intact. Size of the heart is normal. There is no pericardial effusion. There is moderate coronary artery calcification. No pneumothorax or pleural effusion is present. Emphysema is present. There is no consolidation to suggest pneumonia. The previously described subpleural groundglass opacity with small cystic spaces within the right lower lobe on image 162 of 296 is similar to prior exam. This is likely benign. There is no consolidation to suggest pneumonia. No suspicious lesions within the bony thorax are present. Visualized portions of the upper abdomen are unremarkable. IMPRESSION: 1. Right internal jugular central venous catheter in place. No pneumothorax. Catheter intact. Mild adjacent stranding is likely postprocedural and not unexpected. An infectious process is considered less likely but cannot be excluded by imaging. No fluid collection. 2. No acute process within the chest. No consolidation to suggest pneumonia. 3. Emphysema. 4. No change in the previously described subpleural ground glass opacity with small cystic spaces which is likely benign. ACT 112: Negative or not required by law. Electronically signed by: Wilver Powell M.D. 06/18/2022 4:18 PM Venous Doppler Study 06/22/22 12:31 RETROPULSION THE VENOUS DOPPLER ULTRASOUND CLINICAL HISTORY: tunneled central line; pain/swelling R neck; ?DVT COMPARISON STUDY: No previous studies for comparison. TECHNIQUE: Sonography of the deep venous system of the right upper extremity was performed. FINDINGS: Right internal jugular central line is in place. There is a focus of nonocclusive thrombus along the catheter within the right internal jugular vein. No additional sites of deep venous thrombus within the right upper extremity are present. Remainder of the vessels are patent. IMPRESSION: Focus of nonocclusive thrombus along the catheter within the right internal jugular vein. No additional sites of deep venous thrombus within the right upper extremity. ACT 112: Negative or not required by law. Electronically signed by: Wilver Powell M.D. 06/23/2022 7:25 AM PG Care Time/CCT Total # of Minutes Spent Total Time Spent with Patient: Total time spent is greater than 50% in coordination of care (as documented) at patient's floor/unit and/or counseling patient: Prolonged Care Time Prolonged Care Time: Yes Total Prolonged Care Time: 90 Coding Level of Care Code 37820 Subseq Hosp Care Lvl 3 (25 - SIGNIFICANT, SEPARATELY IDENTIFIABLE ) Diagnoses Ulcer of left great toe due to diabetes mellitus E11.621; L97.529 Internal jugular (IJ) vein thromboembolism, acute I82.C19 Acute leg pain M79.606 Cellulitis of left foot L03.116 Diabetes mellitus type 2, uncontrolled E11.65 Nausea R11.0 MRSA (methicillin resistant staph aureus) culture positive Z22.322 PAD (peripheral artery disease) I73.9 Anxiety F41.9 Depression F32.9 Diabetic peripheral neuropathy E11.42 Chronic pain syndrome G89.4 Poor venous access I87.8 B12 deficiency E53.8 Shoulder pain M25.519 Vitamin D deficiency E55.9 Anemia D64.9 Additional Codes Prolonged Care Time - Prolonged Care Time: Yes ([id number])
[2022-06-23] MEDS ORDERED: HYDROmorphone INJ 1 MG/ML SYRINGE IV STA (11:24)
[2022-06-23] MEDS ORDERED: INSULIN ASPART PER UNIT SC SCH (11:45)
[2022-06-23] MEDS ORDERED: MIDAZOLAM HCL 1 MG/ML 2ML VIAL ONE (12:24)
[2022-06-23] MEDS ORDERED: LABETALOL HCL IV 5 MG/ML 20ML IV PRN (13:08)
[2022-06-23] MEDS ORDERED: NALOXONE HCL 0.4 MG/1 ML VIAL/CARP IV PRN (13:08)
[2022-06-23] MEDS ORDERED: ONDANSETRON INJ 2 MG/ML 2 ML VIAL IV PRN (13:08)
[2022-06-23] MEDS ORDERED: FLUMAZENIL 0.1 MG/1 ML 10 ML VIAL IV PRN (13:08)
[2022-06-23] MEDS ORDERED: ePHEDrine sulfate 50 MG/ML AMP IV PRN (13:08)
[2022-06-23] MEDS ORDERED: PROMETHAZINE HCL 12.5 MG in SODIUM CHLORIDE 0.9% 50 ML IV PRN (13:08)
[2022-06-23] MEDS ORDERED: ATROPINE SULFATE 0.1 MG/ML 10ML SYR IV PRN (13:08)
[2022-06-23] MEDS ORDERED: fentaNYL citrate 100 MCG/2 ML VIAL IV PRN (13:08)
--- NOTE | 2022-06-23 13:08 | Anesthesiology Consultation ---
Date of Service June 23, 2022 Assessment & Plan Chart Review Chart Review: Acceptable Risk for Surgery and Patient NOT seen in Pre Admission Testing Consults Requested none ASA ASA4 Proposed Anesthesia Anesthesia Type: MAC Risk / Benefits Reviewed With: PT / POA / Parent / Guardian, Accepts Plan and Informed Consent Obtained History Surgery Operation Date: 06/09/22 07:00 Proposed Procedures p Rivas Catheter Insertion - Lavon Fuentes MD Operation Date: 06/13/22 07:00 Proposed Procedures p Left Hallux Great Toe Amupation - Mathew Noriega DPM, MS Operation Date: 06/21/22 08:20 Proposed Procedures p Removal of Rivas Catheter - Lavon Fuentes MD Operation Date: 06/23/22 09:40 Proposed Procedures p Rivas Removal - Davon Good MD, FACS Height/Weight Height: 5 ft 2 in Weight: 72.2 kg Allergies Allergy/AdvReac Type Severity Reaction Status Date / Time morphine Allergy Severe blisters Verified 06/06/22 21:09 in mouth Sulfa (Sulfonamide Allergy Severe rash/swelli Verified 06/06/22 21:09 Antibiotics) ng iron [From Venofer] Allergy Intermediate Hypertensio Verified 06/06/22 21:09 n vancomycin Allergy Intermediate YULIYA Verified 06/06/22 21:09 SYNDROME---CAN TAKE IF VERY SLOW DRIP. amoxicillin [From Augmentin] Allergy Mild itching/power Verified 06/06/22 21:09 h clavulanic acid Allergy Mild itching/power Verified 06/06/22 21:09 [From Augmentin] h dermabond AdvReac excoriates Uncoded 06/06/22 21:09 skin Medications Home Medications Medication Instructions Recorded Confirmed Last Taken ropinirole 2 mg tablet 4 mg PO HS 10/19/20 06/06/22 03/07/22 metoprolol succinate 50 mg 50 mg PO QAM 03/05/21 06/06/22 04/06/22 09:00 tablet,extended release 24 hr (Toprol XL) lorazepam 1 mg tablet (Ativan) 1 mg PO TID PRN Anxiety 11/04/21 06/06/22 04/06/22 09:00 cyclobenzaprine 10 mg tablet 10 mg PO BID PRN Muscle Spasm 11/24/21 06/06/22 03/08/22 insulin glargine 100 unit/mL (3 20 unit subcut HS 03/08/22 06/06/22 04/05/22 21:00 mL) subcutaneous pen (Lantus Solostar U-100 Insulin) insulin lispro 100 unit/mL 5 unit subcut TIDM 03/08/22 06/06/22 04/06/22 09:00 subcutaneous pen ondansetron 8 mg disintegrating 8 mg translingual TID PRN Nausea 03/08/22 06/06/22 Unknown tablet zolpidem 10 mg tablet 10 mg PO HS PRN Sleep 03/08/22 06/06/22 Unknown clopidogrel 75 mg tablet 75 mg PO QAM #30 tabs 03/30/22 06/06/22 04/06/22 09:00 aspirin 81 mg tablet,delayed 81 mg PO DAILY #30 tabs 04/20/22 06/06/22 04/06/22 09:00 release (Melissa Low Dose Aspirin) hydroxyzine HCl 25 mg tablet 25 mg PO QAM #90 tabs 04/20/22 06/06/22 Unknown multivitamin with folic acid 400 1 tab PO QAM #30 tabs 04/20/22 06/06/22 Unknown mcg tablet (Daily-Werner (with folic acid)) sertraline 50 mg tablet 25 mg PO HS #27 tabs 04/20/22 06/06/22 Unknown oxycodone-acetaminophen 10 mg-325 1 tab PO Q4H PRN pain #30 tabs 05/09/22 06/06/22 Unknown mg tablet (Percocet) pregabalin 75 mg capsule 75 mg PO BID 06/06/22 06/06/22 Unknown Active Medications Generic Name Dose Route Start Last Admin Trade Name Freq PRN Reason Stop Dose Admin Acetaminophen 650 mg 06/07/22 00:34 06/22/22 17:04 Acetaminophen 325 Mg Tab PO 07/07/22 00:33 650 mg Q4H PRN Administration Pain or Fever Aspirin 81 mg 06/07/22 09:00 06/23/22 07:57 Aspirin 81 Mg Ectab PO 07/07/22 08:59 81 mg DAILY RICKY Administration Clopidogrel Bisulfate 75 mg 06/07/22 09:00 06/23/22 07:57 Clopidogrel Bisulfate 75 Mg Tab PO 07/07/22 08:59 75 mg QAM RICKY Administration Cyanocobalamin 1,000 mcg 06/16/22 09:00 06/23/22 07:56 Cyanocobalamin (B-12) 500 Mcg Tablet PO 07/16/22 08:59 1,000 mcg QAM RICKY Administration Diclofenac Sodium 2 gm 06/18/22 09:00 06/23/22 12:21 Diclofenac Sod 1% Gel 100 Gm Tube EXT 07/18/22 08:59 Not Given QID RICKY Protocol Diltiazem HCl 30 mg 06/19/22 07:30 06/23/22 11:38 Diltiazem Hcl 30 Mg Tab PO 07/19/22 07:29 Not Given AC RICKY Heparin Sodium (Beef Lung) 5 ml 06/11/22 21:31 06/22/22 23:36 Heparin 10 Unit/Ml 5 Ml Flush FLUSH 07/11/22 21:30 5 ml PRN PRN Administration Flush Hydralazine HCl 10 mg 06/13/22 14:04 06/14/22 16:59 Hydralazine Hcl 20 Mg/Ml Vial IV 07/13/22 14:03 10 mg Q4H PRN Administration Blood Pressure - High Hydromorphone HCl 1 mg 06/19/22 10:46 06/22/22 23:35 Hydromorphone Inj 1 Mg/Ml Syringe IV 07/03/22 10:45 1 mg Q2H PRN Administration Pain Hydroxyzine HCl 25 mg 06/07/22 09:00 06/23/22 07:58 Hydroxyzine Hcl 25 Mg Tab PO 07/07/22 08:59 25 mg QAM RICKY Administration Hydroxyzine HCl 25 mg 06/21/22 21:00 06/22/22 21:10 Hydroxyzine Hcl 25 Mg Tab PO 07/21/22 20:59 25 mg HS RICKY Administration Promethazine HCl 12.5 mg/ 50.5 mls @ 202 mls/hr 06/07/22 18:54 06/20/22 21:35 Sodium Chloride IV 07/07/22 18:53 Infused Q6H PRN Infusion Nausea And Vomiting Heparin Sodium/Dextrose 25,000 units in 500 mls @ 0 mls/hr 06/23/22 09:45 06/23/22 12:39 Heparin Sodium/Dextrose IV 07/23/22 09:44 0 units/hr .Q0M RICKY 0 mls/hr Titration Protocol 0 UNITS/HR Insulin Aspart 0 units 06/23/22 11:45 06/23/22 12:21 Insulin Aspart Per Unit SC 07/23/22 11:44 Not Given Q6H RICKY Insulin Glargine 10 units 06/13/22 09:00 06/23/22 08:42 Lantus Per Unit Charge SQ 07/13/22 08:59 10 units QAM RICKY Administration Ioversol 88 ml 06/18/22 15:54 06/18/22 15:55 Optiray 350 100ml IV 06/18/22 15:55 88 ml ONCE ONE Administration Lactobacillus Acidophilus 2 cap 06/15/22 17:15 06/23/22 07:57 Advanced Probiotic 1250 Mg Capsule PO 07/15/22 17:14 2 cap DAILY RICKY Administration Lorazepam 1 mg 06/07/22 00:34 06/23/22 04:46 Lorazepam 1 Mg Tab PO 07/07/22 00:33 1 mg TID PRN Administration Anxiety Metoprolol Succinate 50 mg 06/07/22 09:00 06/23/22 07:56 Metoprolol Succ 50mg Ext Rel Tab PO 07/07/22 08:59 50 mg QAM RICKY Administration Metoprolol Tartrate 5 mg 06/06/22 23:39 06/12/22 05:27 Metoprolol Tartrate 1 Mg/Ml Vial IV 07/06/22 23:38 5 mg Q5M PRN Administration Tachycardia Multivitamins 1 tab 06/07/22 09:00 06/23/22 07:57 Multivitamin Tab PO 07/07/22 08:59 1 tab QAM RICKY Administration Ondansetron HCl 4 mg 06/14/22 03:30 06/23/22 12:06 Ondansetron Inj 2 Mg/Ml 2 Ml Vial IV 07/14/22 03:29 4 mg Q6H PRN Administration Nausea And Vomiting Oxycodone HCl 10 mg 06/21/22 21:00 06/23/22 07:56 Oxycodone Hcl 10 Mg Tabcr (Oxycontin) PO 07/05/22 20:59 10 mg BID RICKY Administration Oxycodone/Acetaminophen 1 tab 06/23/22 00:00 06/23/22 08:44 Oxycodone/Acetaminophen 5mg/325mg Tab PO 07/07/22 00:00 1 tab Q6 PRN Administration Pain Pantoprazole Sodium 40 mg 06/18/22 09:00 06/23/22 08:44 Pantoprazole 40 Mg Tab PO 07/18/22 08:59 40 mg BID RICKY Administration Pregabalin 100 mg 06/17/22 21:00 06/23/22 07:56 Pregabalin 100 Mg Cap PO 07/17/22 20:59 100 mg TID RICKY Administration Ropinirole HCl 4 mg 06/07/22 21:00 06/22/22 21:08 Ropinirole Hcl 2 Mg Tablet PO 07/07/22 20:59 4 mg HS RICKY Administration Sertraline HCl 50 mg 06/16/22 21:00 06/22/22 21:08 Sertraline Hcl 50 Mg Tablet PO 07/16/22 20:59 50 mg HS RICKY Administration Vitamin D 5,000 units 06/23/22 09:00 06/23/22 08:44 Cholecalciferol 5,000 Units 125 Mcg Tab PO 07/23/22 08:59 5,000 units QAM RICKY Administration Zolpidem Tartrate 10 mg 06/07/22 00:34 06/22/22 23:06 Zolpidem Tartrate 10 Mg Tab PO 07/07/22 00:33 10 mg HS PRN Administration Sleep NPO Date Last Intake of Fluids: 06/23/22 Time Last Intake of Fluids: 08:15 Last Intake of Fluids Comment: clear liquid diet Date Last Intake of Solids: 06/23/22 Time Last Intake of Solids: 08:15 Last Intake of Solids Comment: two bites epstein Past Medical History Medical History Acidosis, lactic Acute dehydration 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 No issues per anesthesia postop progress note. Anemia Cellulitis Chronic back pain Chronic pain syndrome Costochondritis COVID-19 Depression Diabetes mellitus type 2, uncontrolled Diabetic peripheral neuropathy Diastolic CHF DM2 (diabetes mellitus, type 2) IDDM, A1c 07/2021-11% Gastritis Gastroenteritis GIB (gastrointestinal bleeding) History of amputation of great toe HTN (hypertension) Hyperlipidemia Hyponatremia Infection of left great toe due to methicillin resistant Staphylococcus aureus (MRSA) Insomnia Insulin dependent diabetes mellitus Iron deficiency anemia Nonobstructive atherosclerosis of coronary artery Numbness of lower extremity Opiate abuse, continuous Opiate dependence Opioid dependence Osteomyelitis of great toe of left foot Peripheral neuropathy Right second toe ulcer Seizures Sepsis Exercise / Class Metabolic Activity III < 4 Walking/Shop/Light housework Past Family History Family History Mother , age 63 Myocardial infarction Father , age 68 or 69 Myocardial infarction Brother S/P CABG (coronary artery bypass graft) Sister Myocardial infarction x 3; she is 57yo Past Surgical History Surgical History History of esophagogastroduodenoscopy (EGD) History of right below knee amputation (12/22/21) Right Below Knee Amputation(Right) - Davon Good MD, FACS Past Anesthesia History No Hx of Anesthesia Complications and No Family Hx of Anesthesia Complications History of PONV No Hx of PONV and No Hx of Motion Sickness Social History Smoking Status: Current some day smoker tobacco type: cigarettes Smoking cigarettes per day: 20 Hx Alcohol Use: No Hx Substance Use: Yes substance use type: marijuana Substance Use Type Other:: medical marijuana Physical Exam Vital Signs Last Vital Signs Temp 36.8 C 06/23/22 12:46 Pulse 69 06/23/22 12:46 Resp 18 06/23/22 12:46 BP 132/76 06/23/22 12:46 Pulse Ox 95 06/23/22 12:46 O2 Del Method 06/23/22 12:46 O2 Flow Rate 6 06/13/22 17:15 Constitutional + obese ENMT Mouth: + dentition abnormality, + dental caries, + poor dentition and + loose teeth Thyromental Distance: < 3.5 Finger Breadths Mallampati Class: II Neck normal visual inspection and trachea midline; neck extension not limited Respiratory normal respiratory effort Auscultation: + diminished lung sounds Cardiovascular Rate/Rhythm: regular rate and regular rhythm Heart Sounds: no murmur Vessels: no carotid bruit Chest (Breasts) Chest: + vascular access device or port Musculoskeletal Spine: normal cervical ROM and no pain with cervical ROM Extremities: extremities normal to inspection; full ROM of extremities Neurologic moves all extremities Motor/Sensory: no sensory deficit Psychiatric Orientation: alert and oriented x 3 Testing Laboratory Results 06/23/22 10:31 06/22/22 09:30 PT 10.9 Seconds (9.0-12.0) 06/23/22 10:31 INR 1.0 (0.9-1.1) 06/23/22 10:31 APTT 29.6 Seconds (21.0-31.0) 06/23/22 10:31 Urine Color Yellow 06/06/22 19:00 Urine Appearance Clear (Clear) 06/06/22 19:00 Urine pH 7.0 (4.5-7.5) 06/06/22 19:00 Ur Specific [place] 1.011 (1.000-1.030) 06/06/22 19:00 Urine Protein Negative (Negative) 06/06/22 19:00 Urine Glucose (UA) Negative (Negative) 06/06/22 19:00 Urine Ketones Negative (Negative) 06/06/22 19:00 Urine Nitrite Negative (Negative) 06/06/22 19:00 Ur Leukocyte Esterase Negative (Negative) 06/06/22 19:00 06/13/22 16:39 Gram Stain - Final Toe,Left Great Aerobic and Anaerobic Culture - Final No growth 06/23/22 06/23/22 06/23/22 12:46 12:20 07:50 POC Glucose 113 H 114 H 134 H
[2022-06-23] MEDS ORDERED: BACITRACIN OINT 15 GM TUBE ONE (13:18)
--- NOTE | 2022-06-23 13:21 | Post Operative Brief Note ---
PG Immediate Post Op with CF Date of Surgery June 23, 2022 Pre & Post Diagnosis Operation Date: 06/09/22 07:00 Pre-Op Diagnosis: Lack of Venous Access Post-Op Diagnosis: Lack of Venous Access Operation Date: 06/13/22 07:00 Pre-Op Diagnosis: Ulcer of left great toe due to diabetes mellitus Post-Op Diagnosis: Ulcer of left great toe due to diabetes mellitus Operation Date: 06/21/22 08:20 <No data on this case meets the specified criteria> Operation Date: 06/23/22 09:40 <No data on this case meets the specified criteria> I identified the patient and participated in the time-out.: Yes Procedure Operation Date: 06/09/22 07:00 Actual Procedures p Rivas Catheter Insertion,Right Jugular Approach, Ultrasound Localization of Right Internal Jugular Vein,Fluoroscopy for Positioning(Right) - Lavon Fuentes MD Operation Date: 06/13/22 07:00 Actual Procedures p Left Hallux Great Toe Amputation(Left) - Mathew Noriega DPM, MS Operation Date: 06/21/22 08:20 <No data on this case meets the specified criteria> Operation Date: 06/23/22 09:40 <No data on this case meets the specified criteria> Surgeon Davon Good MD, FACS Staple Shear Operator None Estimated Blood Loss 0 Findings Consistent with Post-Op Diagnosis Specimens Specimen Description: A. Left distal phalanx 1. Left great toe anerobic/aerobic culture Anesthesia Type MAC
--- NOTE | 2022-06-23 13:28 | Procedure Note ---
Procedure Note Date of Service June 23, 2022 Supervising Physician Co-Signing Physician Notes As per Ivette Winn physician Patient is very anxious to the point that I can even examine her properly despite lifting her blankets she complains of discomfort therefore we will proceed with that in the main operating room with some sedation Patient had 2 small strips of epstein at 8:00 this morning normally there were no need for any sedation by removing the catheter but given her anxiety we will proceed with an in the OR We will proceed with removal of the Rivas catheter right internal jugular patient marked permit signed risk and complication explained to her Coding
--- NOTE | 2022-06-23 13:32 | Operative Report ---
PG Post Operative Report Pre & Post Diagnosis Operation Date: 06/09/22 07:00 Pre-Op Diagnosis: Lack of Venous Access Post-Op Diagnosis: Lack of Venous Access Operation Date: 06/13/22 07:00 Pre-Op Diagnosis: Ulcer of left great toe due to diabetes mellitus Post-Op Diagnosis: Ulcer of left great toe due to diabetes mellitus Operation Date: 06/21/22 08:20 <No data on this case meets the specified criteria> Operation Date: 06/23/22 09:40 Pre-Op Diagnosis: acute internaljugular thromboembolism Post-Op Diagnosis: acute internaljugular thromboembolism I identified the patient and participated in the time-out.: Yes Procedure Operation Date: 06/09/22 07:00 Actual Procedures p Rivas Catheter Insertion,Right Jugular Approach, Ultrasound Localization of Right Internal Jugular Vein,Fluoroscopy for Positioning(Right) - Lavon Fuentes MD Operation Date: 06/13/22 07:00 Actual Procedures p Left Hallux Great Toe Amputation(Left) - Mathew Noriega DPM, MS Operation Date: 06/21/22 08:20 <No data on this case meets the specified criteria> Operation Date: 06/23/22 09:40 Actual Procedures p Rivas Removal(Not Applicable) - Davon Good MD, FACS Patient was brought into the operating theater supine position minimal IV sedation right chest area and neck was prepped byline solution properly draped the patient's head was turned to the left timeout was had the patient identified we at this point removed the sutures holding the Rivas catheter in place once the sutures were removed we gently pulled on the Rivas catheter and came out without any difficulty intact we held pressure the insertion site for approximately 5 minutes the catheter tip was cut and sent for cultures procedure was tolerated well by the patient bacitracin was used to the entry site 2 x 2 and OpSite placed procedure was tolerated well no blood loss Surgeon Davon Good MD, FACS Surveillance Technician None Estimated Blood Loss 0 Findings Consistent with Post-Op Diagnosis Rivas catheter right internal jugular entry Specimens Rivas catheter Anesthesia Type MAC Complications none Disposition Accompanied Patient To Recovery: No Disposition: Recovery Room Indications Positive blood culture clot in Rivas catheter Description of Procedure merda I attest to the content of the Intraoperative Record and any orders documented therein. Any exceptions are noted below.
--- NOTE | 2022-06-23 14:08 | Anesthesiology Progress Note ---
Date of Service June 23, 2022 Anesthesia Post Procedure Vital Signs Vital Signs: Temp Pulse Pulse Resp BP BP Pulse Ox 06/23/22 14:00 36.4 C L 70 17 128/64 97 06/23/22 13:50 68 21 136/66 98 06/23/22 13:40 67 18 127/71 99 06/23/22 13:32 36.1 C L 66 16 104/62 99 06/23/22 12:46 36.8 C 69 18 132/76 95 06/23/22 07:10 37.0 C 77 16 135/70 97 06/22/22 21:10 06/22/22 21:31 36.9 C 71 20 123/76 93 06/22/22 17:17 135/81 06/22/22 14:14 36.6 C 85 16 165/72 H 98 O2 Del Method O2 Flow Rate 06/23/22 14:00 Oxymask 2 06/23/22 13:50 Oxymask 2 06/23/22 13:40 Oxymask 3 06/23/22 13:32 Oxymask 3 06/23/22 12:46 Room Air 06/23/22 07:10 Room Air 06/22/22 21:10 Room Air 06/22/22 21:31 Room Air 06/22/22 17:17 06/22/22 14:14 Room Air Pain Intensity Left Toe: Pain Intensity: 8 Right Leg: Pain Intensity: 10 Right Shoulder: Pain Intensity: 10 Right Chest: Pain Intensity: 4 Transfer of Care Handoff Completed per policy Notes Mental Status: alert / awake / arousable Patient Amnestic to Procedure: Yes Nausea / Vomiting: adequately controlled Pain: adequately controlled Airway Patency, RR, SpO2: stable & adequate BP & HR: stable & adequate Hydration State: stable & adequate Anesthetic Complications: no major complications apparent
[2022-06-23 17:41] LABS: Partial Thromboplastin Ratio 1.2; Partial Thromboplastin Time 32.8 Seconds (21.0-31.0)
[2022-06-23] MEDS ORDERED: HEPARIN SOD (PORCINE) 1000 UNIT/ML IV ONE (17:46)
[2022-06-23] MEDS: DAPTOmycin 300 MG in SYRINGE 0 ML IV SCH (18:29)
[2022-06-23] MEDS: oxyCODONE/ACETAMINOPHEN 10-325 TAB PO PRN (18:45)
[2022-06-23] MEDS: cefTRIAXone SODIUM 2,000 MG in DEXTROSE 5% 50 ML IV SCH (19:34)
[2022-06-23] MEDS: ZOLPIDEM TARTRATE 10 MG TAB PO PRN (20:56)
[2022-06-23] MEDS: oxyCODONE HCL 15 MG TABCR (OxyCONTIN) PO SCH (20:57)
[2022-06-23] MEDS: SERTRALINE HCL 50 MG TABLET PO SCH (20:59)
[2022-06-23] MEDS: rOPINIRole HCL 2 MG TABLET PO SCH (21:00)
[2022-06-24] MEDS: oxyCODONE/ACETAMINOPHEN 10-325 TAB PO PRN ×3 (00:46→10:27)
[2022-06-24 00:49] LABS: Partial Thromboplastin Ratio 1.3; Partial Thromboplastin Time 36.5 Seconds (21.0-31.0)
[2022-06-24] MEDS ORDERED: HEPARIN SOD (PORCINE) 1000 UNIT/ML IV ONE ×2 (01:15→14:47)
[2022-06-24] MEDS ORDERED: HEPARIN IV BOLUS 2,000 UNITS in SYRINGE 0 ML IV ONE ×2 (03:15→15:15)
[2022-06-24] MEDS: LORazepam 1 MG TAB PO PRN ×2 (03:41→13:18)
[2022-06-24 07:34] LABS: Basophils # (auto) 0.13 K/uL (0-0.2); Basophils % (auto) 1.5 %; Eosinophils # (auto) 0.97 K/uL (0-0.50); Eosinophils % (auto) 11.3 %; Hematocrit (blood only) 34.8 % (34.1-44.9); Hemoglobin 11.2 g/dl (12.0-16.0); Immature Granulocytes # (auto) 0.01 K/uL (0.00-0.02); Immature Granulocytes % (auto) 0.1 %; Lymphocytes # (auto) 1.94 K/uL (1.2-3.4); Lymphocytes % (auto) 22.6 %; Mean Corpuscular Hemoglobin 26.9 pg (25.0-34.0); Mean Corpuscular Hgb Conc 32.2 g/dL (32.0-36.0); Mean Corpuscular Volume 83.5 fL (80.0-100.0); Monocytes # (auto) 0.74 K/uL (0.24-0.82); Monocytes % (auto) 8.6 %; Neutrophils # (auto) 4.81 K/uL (1.4-6.5); Neutrophils % (auto) 55.9 %; Platelet Count 282 K/uL (130-400); RDW Coefficient of Variation 15.4 % (11.5-14.5); RDW Standard Deviation 46.5 fL (36.4-46.3); Red Blood Count 4.17 M/uL (3.93-5.22)
[2022-06-24 07:54] LABS: BUN Creatinine Ratio 17.5 (10-20); C Reactive Protein 0.8 mg/dl (0-0.5); Calcium 8.9 mg/dl (8.5-10.1); Creatinine Clr Calc Pharmacy 90.6 ml/min; Est GFR (African American) 114.6 ml/min; Est GFR (Non-African American) 98.9 ml/min; Partial Thromboplastin Ratio 1.4; Partial Thromboplastin Time 38.2 Seconds (21.0-31.0); Potassium 3.9 mmol/L (3.5-5.1)
[2022-06-24] MEDS: HEPARIN SODIUM/DEXTROSE 25,000 UNITS/500 ML BAG IV SCH ×3 (08:14→15:13)
[2022-06-24] MEDS: oxyCODONE HCL 15 MG TABCR (OxyCONTIN) PO SCH ×2 (08:26→21:14)
[2022-06-24] MEDS: PANTOprazole 40 MG TAB PO SCH ×2 (08:27→20:15)
[2022-06-24] MEDS: MULTIVITAMIN TAB PO SCH (08:28)
[2022-06-24] MEDS: METOPROLOL SUCC 50MG EXT REL TAB PO SCH (08:28)
[2022-06-24] MEDS: ADVANCED PROBIOTIC 1250 MG CAPSULE PO SCH (08:28)
[2022-06-24] MEDS: CYANOCOBALAMIN (B-12) 500 MCG TABLET PO SCH (08:28)
[2022-06-24] MEDS: CHOLECALCIFEROL 5,000 UNITS 125 MCG TAB PO SCH (08:28)
[2022-06-24] MEDS: CLOPIDOGREL BISULFATE 75 MG TAB PO SCH (08:28)
[2022-06-24] MEDS: dilTIAZem HCL 30 MG TAB PO SCH ×3 (08:29→16:19)
[2022-06-24] MEDS: ASPIRIN 81 MG ECTAB PO SCH (08:29)
[2022-06-24] MEDS: hydrOXYzine HCl 25 MG TAB PO SCH ×2 (08:29→20:15)
[2022-06-24] MEDS: DICLOFENAC SOD 1% GEL 100 GM TUBE EXT SCH ×4 (08:30→21:15)
[2022-06-24] MEDS: PREGABALIN 100 MG CAP PO SCH ×3 (09:15→20:15)
[2022-06-24] MEDS: INSULIN ASPART PER UNIT SC SCH ×4 (09:26→21:14)
[2022-06-24] MEDS: LANTUS PER UNIT CHARGE SQ SCH (09:27)
--- NOTE | 2022-06-24 09:39 | Surgery Progress Note ---
Date of Service June 24, 2022 Assessment & Plan (1) Internal jugular (IJ) vein thromboembolism, acute: Plan: s/p R castro catheter removal on 06/23 for associated thrombus surgical site is c/d/i without issues we will sign off, but call with any questions/concerns pt seen/examined with dr. cisneros Admission and Anticipated Discharge Date Admission Date: June 06, 2022 Subjective Patient tearful, relates issues with pain control in her LLE. Her surgical dressing fell off yesterday after removal of castro, reports some itching in the area but otherwise no issues. Physical Exam Physical Exam: awake, tearful Chest (Breasts): Additional Comments: R chest c/d/i; no signs of infection around castro removal site Results & Data ([facility]) Vital Signs (Past 12 Hours) Vital Signs Temp Pulse Resp BP Pulse Ox O2 Del Method 06/24/22 03:35 36.7 C 78 16 135/75 96 Room Air 06/23/22 22:59 36.6 C 69 16 117/64 93 Room Air PG Care Time/CCT Total # of Minutes Spent Total Time Spent with Patient: Total time spent is greater than 50% in coordination of care (as documented) at patient's floor/unit and/or counseling patient: Coding Level of Care Code None Diagnoses Internal jugular (IJ) vein thromboembolism, acute I82.C19
[2022-06-24] MEDS ORDERED: oxyCODONE/ACETAMINOPHEN 10-325 TAB PO PRN (10:09)
[2022-06-24] MEDS: ONDANSETRON INJ 2 MG/ML 2 ML VIAL IV PRN (11:49)
[2022-06-24 14:38] LABS: Partial Thromboplastin Ratio 1.3; Partial Thromboplastin Time 35.8 Seconds (21.0-31.0)
[2022-06-24] MEDS: oxyCODONE HCL IR 5 MG TAB (IMMEDIATE RELEASE) PO PRN ×2 (17:58→22:13)
[2022-06-24] MEDS: DAPTOmycin 300 MG in SYRINGE 0 ML IV SCH (18:11)
[2022-06-24] MEDS: cefTRIAXone SODIUM 2,000 MG in DEXTROSE 5% 50 ML IV SCH (18:14)
[2022-06-24] MEDS ORDERED: CYCLOBENZAPRINE HCL 5 MG TAB PO STA (18:38)
--- NOTE | 2022-06-24 19:55 | Hospitalist Progress Note ---
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 Initially placed on Ceftriaxone 2gm IV/Doxycycline 100mg Poor vascular access/PAD at baseline --> Dr Monet consulted last week, patient underwent placement of castro catheter R IJ--> will need flushes once completed abx MRI IMPRESSION with concerns for minimal marrow edema of first distal phalangeal tuft with preserved T1 signal suggestive of osteitis. Early osteo could appear similarly. Dr Mathew Noriega consulted from podiatry POD #11 s/p Fillet of left distal great toe with Dr Noriega Pathology report - underlying bone appeared viable and changes of osteomyelitis were NOT seen Culture from 06/13 from the left great toe negative for any specific pathogen Completed her IV antibiotics 06/20/22 Orthotics consulted and fit her surgical shoe-- patient refused CAM boot; has a post-op surgical shoe but she is not wearing it Vit D low, replacement ordered and can continue Over the last 72 hours the patient's WBC count had trended up and CRP - previously <0.5 - was now modestly elevated Dr Noriega & I inspected the wound 06/23/22 together - he took a culture, this remains negative IV rocephin & IV daptomycin resumed evening of 06/23/22 WBC count has normalized overnight - rather quickly for just 1 dose of each antibiotic CRP about the same Cont pain med adjustments Await culture Appreciate Dr Noriega's expertise & assistance (2) Internal jugular (IJ) vein thromboembolism, acute: Plan: right IJ catheter-associated heparin drip started AM of 06/23/22 gen surg consulted and they removed her Castro catheter 06/23/22 per Uptodate lovenox or coumadin x 3 months is preferred Rx plan however, I do not think she would comply with coumadin visits for INR checks and I would be concerned about fluctuating INR levels there is now data, albeit limited, to suggest that DOACs are accepted choice for Rx this would certainly be better from compliance standpoint due to uncertainty surrounding #1 above will cont heparin drip for now (3) Acute leg pain: Plan: Lyrica increased to 100mg TID this admission. She was previously requesting IV dilaudid 1mg every 2 hours nearly scheduled even 7+ days out from her surgery. During prior admission in April she was seen by pain management - they advised Oxycontin 10mg BID. She would benefit from basal/long-acting pain meds. Thus started oxycontin 10mg BID evening of 06/21/22. 06/23 - increased oxycontin to 15mg BID Patient seen by pain management this admission - advised to stop IV dilaudid. Due to ongoing pain I changed her dosing frequency of oxycodone to q4h and increased the dose to 15mg Despite all of these changes she has reported this is simply not enough and continuously requests the IV dilaudid She continues to decline an ankle block by Dr oNriega I am suspicious she has some element of neuropathy driving this pain Previously took nortriptyline - consider adding back Or - consider cymbalta (4) Cellulitis of left foot: Plan: had resolved abx d/c 06/20/22 now with ?early infection of operative site? abx resumed 06/23/22, await culture, serial exams (5) Diabetes mellitus type 2, uncontrolled: Plan: A1c 8.7% in March 2022 and all prior a1c's uncontrolled cont lantus 10 units daily cont novolog achs BSGs remain <200 (6) Nausea: Plan: 2nd to narcotics probable underlying gastroparesis use zofran or reglan prn (7) MRSA (methicillin resistant staph aureus) culture positive: Plan: Hx of from L foot prior cx in February repeat culture from L foot sent 06/23/22 (8) PAD (peripheral artery disease): Plan: Continue aspirin and clopidogrel Quit smoking >1 year ago, does apparently use marijuana vape pens -- will need to ask about medical card --> SEE ABOVE, MMJ CARD, uses tinctures, RSO, topicall creams for additional pain relief Ideally should be on statin therapy 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 and prior tobacco usage (9) Anxiety: Plan: severe Cont lorazepam prn Cont sertraline 50mg If mood issues persist will ask psychiatry to see again in consult (10) Depression: Plan: INCREASED ZOLOFT 50mg --> tolerating well, continue at discharge f/u PCP for further dose titration If issues persist while hospitalized, however, will ask psych to see (11) Diabetic peripheral neuropathy: Plan: Continue pregabalin and ropinirole checked B12 w/ AM labs-- LOW NORMAL, REPLACEMENT ORDERED while inpatient and continue at d/c Continue increased Lyrica as above, MMJ outpatient creams (12) Chronic pain syndrome: Plan: As above pain management consult appreciated see above re: pain meds (13) Poor venous access: Plan: S/P CASTRO W/ DR MONET earlier this stay was to have this removed 06/21 but at last moment she requested the Castro remain in place then, 06/22, complaining of significant pain at base of neck doppler obtained - right IJ thrombus detected 06/23 - castro removed by Dr Good (14) B12 deficiency: Plan: B12 low normal 261, replacement ordered would continue x 1 year (15) Shoulder pain: Plan: Calcific tendinopathy seen on x-rays -- right shoulder f/u with ortho if persistent pain - x-rays c/w chronic tendonitis and/or bursitis (16) Vitamin D deficiency: Plan: 25-OH vit D level 20 this admission cont replacement vit D 5000 units daily (17) Anemia: Plan: hx iron deficiency anemia intolerant to Venofer celiac screen negative Ferlicit x 2 this admission most recent ferritin 31 and slowly improving from low of 8 in October 2021 (18) Insomnia: Plan: severe she goes days without sleeping both here at hospital and at home is on ambien chronically - has tolerance - simply ineffective has tried trazodone in past w/o effect atarax 50 at HS has been ineffective stop HS atarax start doxepin 25mg HS if ineffective -- seroquel? other? Plan extensively updated at bedside this evening again --- complex care coordination with multiple visits, multiple discussions with patient, numerous med adjustments, etc - 75 minutes Admission and Anticipated Discharge Date Admission Date: June 06, 2022 Subjective early in the day received notification from nursing staff that patient was c/o pain in left foot I changed her dosing interval from q6h to q4h for percocet use during bedside rounds patient stated that this dosing interval change was simply not enough to keep her comfortable c/o ongoing throbbing pain in left foot also c/o "phantom" pain in 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) she continues to not sleep at night has been several days since she slept at HS very emotional during the visit, crying uncontrollably states she is not eating because of pain she is not using her surgical shoe on the foot when she gets out of bed to the commode shortly after the visit I increased the oxycodone to 15mg q4h prn I then received notification from the nursing staff again that despite increasing the oxycodone she was threatening to leave the hospital this evening She was demanding use of IV dilaudid for her pain arrived in the early evening I went back again to the room Myself and her nurse spoke with the patient and her at bedside I reassured Ms Eduar we were doing everything we could to come up with a solution/plan for her pain control - especially a plan that can be duplicated at home acknowledged that she is emotionally not doing well and brought up the fact she hadn't slept in days I asked permission to reach out to psychiatry for assistance in finding a sleep aid that works I reinforced that poor sleep and mood disorder can make her pain worse and that if we ignore those 2 things we won't be as successful treating her overall pain Several times she asked for additional pain meds beyond the oxycontin + oxycodone, bringing up the use of IV dilaudid Ultimately patient stated she would stay hospitalized also encouraged her to remain hospitalized Review of Systems Review of Systems: gen - poor eating; no fever cv - no orthopnea; no cp pulm - no dyspnea GI - no pain - voiding w/o difficulty Physical Exam Physical Exam: gen - crying, very upset, agitated at times mouth - MMM neck - no JVD heart - RRR, s1 s2, no murmur lungs - CTA b/l abd - soft NT ND BS+ chest - dressings intact right upper chest ext - right BKA; left foot dressings intact; pulses L foot can be felt even through the dressings psych - depressed, tearful; a/o x 3 skin - occasional bruise on arm, leg from IV heparin Results & Data Results & Data ([facility]) Vital Signs (Past 12 Hours) Vital Signs Temp Pulse Resp BP BP Pulse Ox O2 Del Method 06/24/22 17:16 165/68 H 06/24/22 15:23 36.8 C 69 17 131/68 95 Room Air 06/24/22 10:34 36.8 C 70 17 138/69 90 Room Air 06/24/22 10:28 36.8 C 74 16 138/69 92 Laboratory Results Laboratory Results - last 24 hr 06/23/22 06/24/22 06/24/22 20:33 00:24 07:19 WBC RBC Hgb Hct MCV MCH MCHC RDW Std Deviation RDW Coeff of [place] Plt Count MPV Immature Gran % (Auto) Neut % (Auto) Lymph % (Auto) [place] % (Auto) Eos % (Auto) Baso % (Auto) Neut # (Auto) Lymph # (Auto) [place] # (Auto) Eos # (Auto) Baso # (Auto) Immature Gran # (Auto) APTT 36.5 H 38.2 H PTT Ratio 1.3 1.4 Sodium Potassium Chloride Carbon Dioxide Anion Gap BUN Creatinine Est Cr Clr Drug Dosing Est GFR ( Amer) Est GFR (Non-Af Amer) BUN/Creatinine Ratio Glucose POC Glucose 140 H Calcium C-Reactive Protein 06/24/22 06/24/22 06/24/22 07:19 07:19 08:16 WBC 8.60 RBC 4.17 Hgb 11.2 L Hct 34.8 MCV 83.5 MCH 26.9 MCHC 32.2 RDW Std Deviation 46.5 H RDW Coeff of [place] 15.4 H Plt Count 282 MPV 10.0 Immature Gran % (Auto) 0.1 Neut % (Auto) 55.9 Lymph % (Auto) 22.6 [place] % (Auto) 8.6 Eos % (Auto) 11.3 Baso % (Auto) 1.5 Neut # (Auto) 4.81 Lymph # (Auto) 1.94 [place] # (Auto) 0.74 Eos # (Auto) 0.97 H Baso # (Auto) 0.13 Immature Gran # (Auto) 0.01 APTT PTT Ratio Sodium 139 Potassium 3.9 Chloride 102 Carbon Dioxide 30 Anion Gap 7 BUN 11 Creatinine 0.63 Est Cr Clr Drug Dosing 90.6 Est GFR ( Amer) 114.6 Est GFR (Non-Af Amer) 98.9 BUN/Creatinine Ratio 17.5 Glucose 224 H POC Glucose 168 H Calcium 8.9 C-Reactive Protein 0.80 H 06/24/22 06/24/22 06/24/22 12:24 14:13 16:41 WBC RBC Hgb Hct MCV MCH MCHC RDW Std Deviation RDW Coeff of [place] Plt Count MPV Immature Gran % (Auto) Neut % (Auto) Lymph % (Auto) [place] % (Auto) Eos % (Auto) Baso % (Auto) Neut # (Auto) Lymph # (Auto) [place] # (Auto) Eos # (Auto) Baso # (Auto) Immature Gran # (Auto) APTT 35.8 H PTT Ratio 1.3 Sodium Potassium Chloride Carbon Dioxide Anion Gap BUN Creatinine Est Cr Clr Drug Dosing Est GFR ( Amer) Est GFR (Non-Af Amer) BUN/Creatinine Ratio Glucose POC Glucose 144 H 176 H Calcium C-Reactive Protein Diagnostic Findings wound cx left foot - neg to date castro catheter tip culture - neg to date PG Care Time/CCT Total # of Minutes Spent Total Time Spent with Patient: Total time spent is greater than 50% in coordination of care (as documented) at patient's floor/unit and/or counseling patient: Prolonged Care Time Prolonged Care Time: Yes Total Prolonged Care Time: 75 Coding Level of Care Code 91444 Subseq Hosp Care Lvl 3 (25 - SIGNIFICANT, SEPARATELY IDENTIFIABLE ) Diagnoses Ulcer of left great toe due to diabetes mellitus E11.621; L97.529 Internal jugular (IJ) vein thromboembolism, acute I82.C19 Acute leg pain M79.606 Cellulitis of left foot L03.116 Diabetes mellitus type 2, uncontrolled E11.65 Nausea R11.0 MRSA (methicillin resistant staph aureus) culture positive Z22.322 PAD (peripheral artery disease) I73.9 Anxiety F41.9 Depression F32.9 Diabetic peripheral neuropathy E11.42 Chronic pain syndrome G89.4 Poor venous access I87.8 B12 deficiency E53.8 Shoulder pain M25.519 Vitamin D deficiency E55.9 Anemia D64.9 Insomnia G47.00 Additional Codes Prolonged Care Time - Prolonged Care Time: Yes ([id number])
[2022-06-24] MEDS: rOPINIRole HCL 2 MG TABLET PO SCH (20:14)
[2022-06-24] MEDS: ZOLPIDEM TARTRATE 10 MG TAB PO PRN (20:15)
[2022-06-24] MEDS: SERTRALINE HCL 50 MG TABLET PO SCH (20:15)
[2022-06-24 21:48] LABS: Partial Thromboplastin Ratio 1.4; Partial Thromboplastin Time 39.2 Seconds (21.0-31.0)
[2022-06-25] MEDS: ONDANSETRON INJ 2 MG/ML 2 ML VIAL IV PRN ×2 (00:14→08:08)
[2022-06-25] MEDS: DOXEPIN HCL 25 MG CAPSULE PO SCH ×2 (00:23→20:04)
[2022-06-25] MEDS: oxyCODONE HCL IR 5 MG TAB (IMMEDIATE RELEASE) PO PRN ×5 (02:07→20:05)
[2022-06-25] MEDS: HEPARIN SODIUM/DEXTROSE 25,000 UNITS/500 ML BAG IV SCH ×4 (02:18→18:17)
[2022-06-25 04:18] LABS: Basophils # (auto) 0.09 K/uL (0-0.2); Eosinophils # (auto) 0.79 K/uL (0-0.50); Eosinophils % (auto) 9.2 %; Hematocrit (blood only) 32.7 % (34.1-44.9); Hemoglobin 10.7 g/dl (12.0-16.0); Immature Granulocytes # (auto) 0.03 K/uL (0.00-0.02); Immature Granulocytes % (auto) 0.3 %; Lymphocytes # (auto) 1.99 K/uL (1.2-3.4); Lymphocytes % (auto) 23.1 %; Mean Corpuscular Hemoglobin 26.8 pg (25.0-34.0); Mean Corpuscular Hgb Conc 32.7 g/dL (32.0-36.0); Mean Corpuscular Volume 81.8 fL (80.0-100.0); Mean Platelet Volume 9.9 fL (9.4-12.3); Monocytes # (auto) 0.75 K/uL (0.24-0.82); Monocytes % (auto) 8.7 %; Neutrophils # (auto) 4.96 K/uL (1.4-6.5); Neutrophils % (auto) 57.7 %; Platelet Count 284 K/uL (130-400); RDW Coefficient of Variation 15.4 % (11.5-14.5); White Blood Count 8.61 K/ul (4.8-10.8)
[2022-06-25 04:44] LABS: Partial Thromboplastin Ratio 1.5; Partial Thromboplastin Time 41.8 Seconds (21.0-31.0)
[2022-06-25] MEDS: LORazepam 1 MG TAB PO PRN ×3 (06:20→18:03)
[2022-06-25] MEDS: oxyCODONE HCL 15 MG TABCR (OxyCONTIN) PO SCH (08:08)
[2022-06-25] MEDS: METOPROLOL SUCC 50MG EXT REL TAB PO SCH (09:14)
[2022-06-25] MEDS: dilTIAZem HCL 30 MG TAB PO SCH ×3 (09:14→15:53)
[2022-06-25] MEDS: ASPIRIN 81 MG ECTAB PO SCH (09:14)
[2022-06-25] MEDS: MULTIVITAMIN TAB PO SCH (09:14)
[2022-06-25] MEDS: CHOLECALCIFEROL 5,000 UNITS 125 MCG TAB PO SCH (09:14)
[2022-06-25] MEDS: ADVANCED PROBIOTIC 1250 MG CAPSULE PO SCH (09:14)
[2022-06-25] MEDS: CLOPIDOGREL BISULFATE 75 MG TAB PO SCH (09:14)
[2022-06-25] MEDS: PANTOprazole 40 MG TAB PO SCH ×2 (09:14→20:04)
[2022-06-25] MEDS: DICLOFENAC SOD 1% GEL 100 GM TUBE EXT SCH ×4 (09:15→20:06)
[2022-06-25] MEDS: CYANOCOBALAMIN (B-12) 500 MCG TABLET PO SCH (09:15)
[2022-06-25] MEDS: PREGABALIN 100 MG CAP PO SCH ×3 (09:15→20:05)
[2022-06-25] MEDS: INSULIN ASPART PER UNIT SC SCH ×4 (09:18→20:44)
[2022-06-25] MEDS: hydrOXYzine HCl 25 MG TAB PO SCH (09:23)
[2022-06-25] MEDS: LANTUS PER UNIT CHARGE SQ SCH (09:23)
[2022-06-25 11:38] LABS: Partial Thromboplastin Ratio 1.6; Partial Thromboplastin Time 42.9 Seconds (21.0-31.0)
[2022-06-25] MEDS ORDERED: LORazepam 1 MG TAB PO STA (17:45)
[2022-06-25 18:03] LABS: Partial Thromboplastin Ratio 1.5; Partial Thromboplastin Time 40.6 Seconds (21.0-31.0)
[2022-06-25] MEDS: cefTRIAXone SODIUM 2,000 MG in DEXTROSE 5% 50 ML IV SCH (18:21)
[2022-06-25] MEDS: DAPTOmycin 300 MG in SYRINGE 0 ML IV SCH (18:21)
[2022-06-25] MEDS ORDERED: diphenhydrAMINE Capsule 25 MG CAP PO ONE (20:04)
[2022-06-25] MEDS: rOPINIRole HCL 2 MG TABLET PO SCH (20:04)
[2022-06-25] MEDS: SERTRALINE HCL 50 MG TABLET PO SCH (20:04)
[2022-06-25] MEDS: ZOLPIDEM TARTRATE 10 MG TAB PO PRN (20:09)
[2022-06-25] MEDS: oxyCODONE HCL 20 MG TABCR (OxyCONTIN) PO SCH (20:44)
--- NOTE | 2022-06-25 22:12 | Orthopedic Progress Note ---
Date of Service June 25, 2022 Assessment & Plan (1) Ulcer of left great toe due to diabetes mellitus: Plan: Patient seen, evaluated, and treated. I did discuss need for dressing to be applied to left surgical site. There is concern over cut to left hallux with active bleeding. Patient is currently anticoagulated. Dressing applied followed by ayad wrap and tape. Patient agrees to leave dressing intact. Admission and Anticipated Discharge Date Admission Date: June 06, 2022 Subjective Patient seen at bedside. She is status post left foot surgery DOS 06/13. Patient voices frustration from being taken off Dilaudid. Physical Exam Physical Exam: Dressing removed. Left hallux actively bleeding from what appears to be cut at distal aspect adjacent to incision site. Suture intact. Results & Data ([facility]) Vital Signs (Past 12 Hours) Vital Signs Temp Pulse Resp BP BP Pulse Ox O2 Del Method 06/25/22 20:36 36.8 C 72 16 150/71 H 93 Room Air 06/25/22 15:51 36.8 C 71 18 148/77 H 94 Room Air 06/25/22 13:13 71 155/73 H
[2022-06-26] MEDS: HEPARIN SODIUM/DEXTROSE 25,000 UNITS/500 ML BAG IV SCH ×3 (00:15→09:17)
[2022-06-26] MEDS ORDERED: diphenhydrAMINE Capsule 25 MG CAP ONE (00:20)
[2022-06-26] MEDS: oxyCODONE HCL IR 5 MG TAB (IMMEDIATE RELEASE) PO PRN ×5 (00:23→23:08)
[2022-06-26] MEDS: ONDANSETRON INJ 2 MG/ML 2 ML VIAL IV PRN ×2 (00:29→17:09)
[2022-06-26 01:12] LABS: Partial Thromboplastin Ratio 1.7
[2022-06-26 01:24] LABS: Partial Thromboplastin Time 45.8 Seconds (21.0-31.0)
[2022-06-26] MEDS: LORazepam 1 MG TAB PO PRN ×3 (03:55→23:08)
[2022-06-26] MEDS ORDERED: PROCHLORPERAZINE 5 MG in SYRINGE 4 ML IV ONE (04:45)
[2022-06-26 06:54] LABS: Partial Thromboplastin Ratio 1.6; Partial Thromboplastin Time 44.7 Seconds (21.0-31.0)
[2022-06-26 07:43] LABS: Basophils # (auto) 0.09 K/uL (0-0.2); Eosinophils # (auto) 0.77 K/uL (0-0.50); Eosinophils % (auto) 8.8 %; Hematocrit (blood only) 32.2 % (34.1-44.9); Hemoglobin 10.5 g/dl (12.0-16.0); Immature Granulocytes # (auto) 0.04 K/uL (0.00-0.02); Immature Granulocytes % (auto) 0.5 %; Lymphocytes # (auto) 2.02 K/uL (1.2-3.4); Lymphocytes % (auto) 23.2 %; Mean Corpuscular Hemoglobin 27.1 pg (25.0-34.0); Mean Corpuscular Hgb Conc 32.6 g/dL (32.0-36.0); Mean Platelet Volume 10.2 fL (9.4-12.3); Monocytes # (auto) 0.79 K/uL (0.24-0.82); Monocytes % (auto) 9.1 %; Neutrophils # (auto) 5.01 K/uL (1.4-6.5); Neutrophils % (auto) 57.4 %; Platelet Count 262 K/uL (130-400); RDW Coefficient of Variation 15.4 % (11.5-14.5); RDW Standard Deviation 46.2 fL (36.4-46.3); Red Blood Count 3.88 M/uL (3.93-5.22); White Blood Count 8.72 K/ul (4.8-10.8)
[2022-06-26 08:06] LABS: BUN Creatinine Ratio 15.6 (10-20); Calcium 8.9 mg/dl (8.5-10.1); Creatinine Clr Calc Pharmacy 89.2 ml/min; Est GFR (Non-African American) 98.4 ml/min
[2022-06-26 08:12] LABS: Partial Thromboplastin Ratio 1.8
[2022-06-26] MEDS: oxyCODONE HCL 20 MG TABCR (OxyCONTIN) PO SCH ×2 (08:16→22:14)
[2022-06-26] MEDS: PANTOprazole 40 MG TAB PO SCH ×2 (08:17→22:16)
[2022-06-26] MEDS: METOPROLOL SUCC 50MG EXT REL TAB PO SCH (08:17)
[2022-06-26] MEDS: MULTIVITAMIN TAB PO SCH (08:17)
[2022-06-26] MEDS: ADVANCED PROBIOTIC 1250 MG CAPSULE PO SCH (08:17)
[2022-06-26] MEDS: CLOPIDOGREL BISULFATE 75 MG TAB PO SCH (08:17)
[2022-06-26] MEDS: dilTIAZem HCL 30 MG TAB PO SCH ×3 (08:17→17:09)
[2022-06-26] MEDS: ASPIRIN 81 MG ECTAB PO SCH (08:17)
[2022-06-26] MEDS: CHOLECALCIFEROL 5,000 UNITS 125 MCG TAB PO SCH (08:17)
[2022-06-26] MEDS: DICLOFENAC SOD 1% GEL 100 GM TUBE EXT SCH ×4 (08:18→22:16)
[2022-06-26] MEDS: CYANOCOBALAMIN (B-12) 500 MCG TABLET PO SCH (08:18)
[2022-06-26] MEDS: hydrOXYzine HCl 25 MG TAB PO SCH (08:18)
[2022-06-26 08:21] LABS: Partial Thromboplastin Time 48.3 Seconds (21.0-31.0)
[2022-06-26] MEDS: INSULIN ASPART PER UNIT SC SCH ×4 (08:27→22:00)
[2022-06-26] MEDS: PREGABALIN 100 MG CAP PO SCH ×3 (08:27→22:15)
[2022-06-26] MEDS: LANTUS PER UNIT CHARGE SQ SCH (08:28)
--- NOTE | 2022-06-26 10:13 | Hospitalist Progress Note ---
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 Initially placed on Ceftriaxone 2gm IV/Doxycycline 100mg Poor vascular access/PAD at baseline --> Dr Monet consulted last week, patient underwent placement of castro catheter R IJ--> will need flushes once completed abx MRI IMPRESSION with concerns for minimal marrow edema of first distal phalangeal tuft with preserved T1 signal suggestive of osteitis. Early osteo could appear similarly. Dr Mathew Noriega consulted from podiatry POD #11 s/p Fillet of left distal great toe with Dr Noriega Pathology report - underlying bone appeared viable and changes of osteomyelitis were NOT seen Culture from 06/13 from the left great toe negative for any specific pathogen Completed her IV antibiotics 06/20/22 Orthotics consulted and fit her surgical shoe-- patient refused CAM boot; has a post-op surgical shoe but she is not wearing it Vit D low, replacement ordered and can continue Late last week the patient's WBC count had trended up and CRP - previously <0.5 - also trended up minimally Dr Noriega & I inspected the wound 06/23/22 together - he took a culture, this has remained negative IV rocephin & IV daptomycin resumed evening of 06/23/22 WBC count has normalized CRP with minimal elevation foot today without signs of any infection will cont IV abx for now re-inspect wound tomorrow suppressive PO abx at d/c? keflex with doxy? other? Cont pain med adjustments Appreciate Dr Noriega's expertise & assistance (2) Internal jugular (IJ) vein thromboembolism, acute: Plan: right IJ catheter-associated heparin drip started AM of 06/23/22 gen surg consulted and they removed her Castro catheter 06/23/22 per Uptodate lovenox or coumadin x 3 months is preferred Rx plan however, I do not think she would comply with coumadin visits for INR checks and I would be concerned about fluctuating INR levels there is now data, albeit limited, to suggest that DOACs are accepted choice for Rx this would certainly be better from compliance standpoint due to uncertainty surrounding #1 above will cont heparin drip for now will check with anticoagulation clinic about their opinion re: best anticoagulant for her (3) Acute leg pain: Plan: Lyrica increased to 100mg TID this admission. She was previously requesting IV dilaudid 1mg every 2 hours nearly scheduled even 7+ days out from her surgery. During prior admission in April she was seen by pain management - they advised Oxycontin 10mg BID. She would benefit from basal/long-acting pain meds. Thus started oxycontin 10mg BID evening of 06/21/22. 06/23 - increased oxycontin to 15mg BID Patient seen by pain management this admission - advised to stop IV dilaudid. Due to ongoing pain I changed her dosing frequency of oxycodone to q4h and increased the dose to 15mg Despite all of these changes she has reported this is simply not enough and continuously requests the IV dilaudid She continues to decline an ankle block by Dr Noriega I am suspicious she has some element of neuropathy driving this pain Previously took nortriptyline - consider adding back Or - consider cymbalta in meantime - increase oxycontin to 20mg BID this evening (4) Cellulitis of left foot: Plan: had resolved abx d/c 06/20/22 now with ?early infection of operative site? abx resumed 06/23/22, culture negative, operative site looks good today see above (5) Diabetes mellitus type 2, uncontrolled: Plan: A1c 8.7% in March 2022 and all prior a1c's uncontrolled cont lantus 10 units daily cont novolog achs BSGs remain <200 (6) Nausea: Plan: 2nd to narcotics probable underlying gastroparesis use zofran or reglan prn (7) MRSA (methicillin resistant staph aureus) culture positive: Plan: Hx of from L foot prior cx in February repeat culture from L foot sent 06/23/22 and remains negative (8) PAD (peripheral artery disease): Plan: Continue aspirin and clopidogrel Quit smoking >1 year ago, does apparently use marijuana vape pens -- will need to ask about medical card --> SEE ABOVE, MMJ CARD, uses tinctures, RSO, topicall creams for additional pain relief Ideally should be on statin therapy 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 and prior tobacco usage (9) Anxiety: Plan: severe Cont lorazepam prn Cont sertraline 50mg Patient declining to see and speak with psychiatry (10) Depression: Plan: INCREASED ZOLOFT 50mg --> tolerating well, continue at discharge f/u PCP for further dose titration declines psych intervention while here (11) Diabetic peripheral neuropathy: Plan: Continue pregabalin and ropinirole checked B12 w/ AM labs-- LOW NORMAL, REPLACEMENT ORDERED while inpatient and continue at d/c Continue increased Lyrica as above, MMJ outpatient creams (12) Chronic pain syndrome: Plan: As above pain management consult appreciated see above re: pain meds (13) Poor venous access: Plan: S/P CASTRO W/ DR MONET earlier this stay was to have this removed 06/21 but at last moment she requested the Castro remain in place then, 06/22, complaining of significant pain at base of neck doppler obtained - right IJ thrombus detected 06/23 - castro removed by Dr Good (14) B12 deficiency: Plan: B12 low normal 261, replacement ordered would continue x 1 year (15) Shoulder pain: Plan: Calcific tendinopathy seen on x-rays -- right shoulder f/u with ortho if persistent pain - x-rays c/w chronic tendonitis and/or bursit is (16) Vitamin D deficiency: Plan: 25-OH vit D level 20 this admission cont replacement vit D 5000 units daily (17) Anemia: Plan: hx iron deficiency anemia intolerant to Venofer celiac screen negative Ferlicit x 2 this admission most recent ferritin 31 and slowly improving from low of 8 in October 2021 (18) Insomnia: Plan: severe she goes days without sleeping both here at hospital and at home is on ambien chronically - has tolerance - simply ineffective has tried trazodone in past w/o effect atarax 50 at HS has been ineffective stop HS atarax started doxepin 25mg HS if ineffective -- seroquel? other? Plan extensively updated at bedside yesterday evening again --- complex care coordination with multiple visits today 45 minutes spent in care coordination I also corresponded with DR Noriega from podiatry as well as psychiatry Admission and Anticipated Discharge Date Admission Date: June 06, 2022 Subjective 2 visits to pt's bedside today during AM roudns patient was sleeping when I first entered the room she awoke easily said her night was "ok" - got 3 hours of sleep she continues with L foot pain and requesting IV dilaudid be reinstituted she was upset that psych came to speak with her about her insomnia - she stated "I don't want to talk to them - I'm not taking any other meds" she relayed that she was upset with her as well and that she was disgusted with the conversation we had last evening about her pain (myself, nurse, Mr/Mrs Witt all present during that conversation) Ms Witt became more and more upset as the visit went on I deferred an examination since she was so irate 2nd visit was later in the day she had requested to speak with me because she was stating she was going to leave the hospital she had pulled off the outer Coban dressing just prior to my visit I entered her room with her bedside nurse she was again very upset about her pain control and again asking for IV dilaudid upon entry the Coban was indeed gone the underlying 4x4's had been shifted all of this was removed the incision site from recent 1st toe amp was intact; minimal lightly colored pinkness just proximal to the incision; sutures intact; there was a tiny superficial ulceration that was bleeding after redressing the foot she again stated "you won't see me tomorrow because I'm leaving [facility]" I discussed AMA with her and that she could from PEs if she did not have anticoagulation upon leaving AMA Review of Systems Review of Systems: gen - states she is not eating, but nursing flowsheets show she ate 75% of previous meal; no fever GI - nausea musculo - L foot pain psych - anxiety, insomnia remain Physical Exam Physical Exam: gen - crying, very upset, agitated vascular - left foot pulses 2+ extremity - LLE - no edema; left foot - operative site from amputation clean, sutures intact, minimal pinkness proximal to the suture line; on plantar surface of operative site is a tiny, 2mm superficial ulceration that was bleeding xerofoam placed to this bleeding area; foot rewrapped w/ assistance from nursing staff NO CELLULITIS OF THE OPERATIVE SITE OR FOOT at this time psych - a/o x 3, very agitated , crying Results & Data Results & Data ([facility]) Vital Signs (Past 12 Hours) Vital Signs Temp Pulse Resp BP Pulse Ox O2 Del Method 06/26/22 08:16 120/64 06/26/22 07:24 36.5 C 74 16 96/56 L 94 Room Air Laboratory Results CBC wnl crp 0.5 wound cx left foot from Sunday -- negative PG Care Time/CCT Total # of Minutes Spent Total Time Spent with Patient: Total time spent is greater than 50% in coordination of care (as documented) at patient's floor/unit and/or counseling patient: Coding Level of Care Code 56348 Subseq Hosp Care Lvl 3 Diagnoses Ulcer of left great toe due to diabetes mellitus E11.621; L97.529 Internal jugular (IJ) vein thromboembolism, acute I82.C19 Acute leg pain M79.606 Cellulitis of left foot L03.116 Diabetes mellitus type 2, uncontrolled E11.65 Nausea R11.0 MRSA (methicillin resistant staph aureus) culture positive Z22.322 PAD (peripheral artery disease) I73.9 Anxiety F41.9 Depression F32.9 Diabetic peripheral neuropathy E11.42 Chronic pain syndrome G89.4 Poor venous access I87.8 B12 deficiency E53.8 Shoulder pain M25.519 Vitamin D deficiency E55.9 Anemia D64.9 Insomnia G47.00
[2022-06-26] MEDS ORDERED: diphenhydrAMINE Capsule 25 MG CAP PO ONE (10:42)
--- NOTE | 2022-06-26 12:36 | Infectious Disease Consult ---
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 She has had multiple hospitalizations for diabetic foot infection this year, including more recently undergoing 04/15 L great toe subungual abscess I&D and ulcer debridement, and admitted 04/27-05/09 for N/V possibly related to opioid use, treated for L great toe infection with daptomycin, and discharged with doxycycline x 10 days and cephalexin x 7 days. A foot MRI on 06/08 showed cellulitis of the forefoot, most pronounced within the great toe with probable associated paronychia, no abscess, and minimal marrow edema of the 1st distal phalangeal tuft with preserved T1 signal suggestive of osteitis, although early osteomyelitis could appear similarly. She was initially given doxy and ceftriaxone, then transitioned to slow infusion of vancomycin (history of red man syndrome) since a toe wound culture grew MRSA in February 2022, then changed to daptomycin on 06/18 due to complaint of burning. Although it was not clear the pt needed a L great toe amputation, pt strongly desired the amputation, which was performed on 06/23. OR cultures were negative, and path was negative for osteomyelitis. She was treated with daptomycin through 1 week from the OR on 06/20. However, her WBC trended up on 06/22-06/23 and a wound culture was collected 06/23. There was concern for possible infection proximal to the incision, so she was restarted on daptomycin and ceftriaxone on 06/23. The WBC subsequently normalized. ID is consulted to assist with discharge antibiotics, as she has a history of frequent recurrence of L DFI and multiple admissions over the last several months. Her leukocytosis has resolved on restarting daptomycin and ceftriaxone. The incision site has some surrounding erythema, which could represent a local cellulitis. We discussed good wound care and close monitoring of her foot in the setting of diabetic neuropathy. She expressed concern that the infection will return as soon as the antibiotics are stopped, as has happened in the past. I advised that reassuringly, there was no osteomyelitis seen on pathology, and we would like to avoid unnecessarily prolonged courses of antibiotics in order to minimize adverse side effects (ie C diff which she has reported having in the past, etc). There are unfortunately no recent positive cultures to help direct therapy. A wound culture grew MRSA in February 2022, which at that time was S to doxycycline. Unclear why in the past she has had recurrent infection soon after stopping antibiotics. She has good LE perfusion. After her admission 04/06-04/20 in which she underwent ulcer debridement 04/14, she was treated with doxycycline and cephalexin to complete a 14 day course. She was subsequently readmitted 04/27 and discharged again 05/09 with another course of doxycycline and cephalexin. She was readmitted again 06/06, now s/p L great toe amputation 06/13. Her wound cultures over the last couple months have been collected in the setting of being on/off multiple courses of antibiotics, but if there was concern for MRSA in the wound, I would expect it to grow particularly if her infection is worsening, and if the MRSA is now resistant to doxycycline. Since she has received multiple courses of doxycycline in the past few months, considered trying a short course of linezolid instead, but she is on multiple serotonergic agents that may place her at risk for serotonin syndrome (although overall risk is low). She unfortunately has an allergy to TMP/SMX. Antimicrobial course: Daptomycin 06/18-06/20, 06/23- Ceftriaxone 06/06-06/07, 06/23- Vancomycin 06/08-06/18 Doxycycline 06/06-06/08 Problems: #Recurrent L DFI s/p L great toe amputation 06/13: wound cultures in the past have grown mixed skin adithya 04/27 and 04/14, yeast 04/07, MRSA 03/11. #R DFI s/p BKA (12/2021) #History of red man syndrome with vancomycin #Antibiotic allergies: sulfa (rash, swelling), amox/clav (itching, rash) Recommendations: -Can transition pt from IV daptomycin and ceftriaxone to doxycycline 100 mg PO q12h and cefpodoxime 400 mg PO q12h. -Can complete a 14 day course of antibiotics starting from 06/23-07/06 -Encourage good wound care -Will sign off. Please page with any further questions Consultation Information Consultation was provided via telemedicine using two-way real-time interactive telecommunication between the patient and the telemedicine provider. For the duration of the visit, the provider was performing the assessment from a different facility than the patient. This includesuse of bluetooth stethoscope forauscultationperformed by the telepresenter that the telemedicine provider can hear if described in the physical exam. Hand Carver contact information: Please call [facility] . (Phone Number For Physician Use Only) After establishing a telemedicine visit, patient was: Patient was verified with two unique identifiers, Patient/authorized rep acknowledged consent and understanding and Gave permission to continue telehealth session Time Spent w Inpatient: 20 minutes History of Present Illness Reason for Consultation: L foot infection Attending Physician: Silvestre Carvajal History of Present Illness 57 yo F with a history of DM2, R diabetic foot infection s/p RLE BKA (12/2021), chronic pain syndrome, anxiety, depression who presented on 06/06 with recurrence of L great toe pain and erythema. She has had multiple hospitalizations for diabetic foot infection this year, most recently 04/27-05/09 and was treated for L great toe infection with daptomycin, and discharged with doxycycline x 10 days and cephalexin x 7 days. A foot MRI on 06/08 showed cellulitis of the forefoot, most pronounced within the great toe with probably associated paronychia, no abscess, and minimal marrow edema of the 1st distal phalangeal tuft with preserved T1 signal suggestive of osteitis, although early osteomyelitis could appear similarly. She was initially started on ceftriaxone and doxycycline, but with the MRI findings and worsening leukocytosis, antibiotics were switched to vancomycin and ceftriaxone. Pt requested toe amputation. Orthopedics was consulted--did not recommend amputation based on the need to heal her amputation site, MRI finidng was not definitive, and since she seemed to be clinically improving. However, pt felt strongly about amputation and she underwent L great toe amputation on 06/13. Routine aerobic and anaerobic cultures from the OR L great toe are negative. Path showed that underlying bone appeared viable and changes of osteomyelitis were not seen. She completed a course of IV antibiotics on 06/20. However, her WBC trended up on 06/22-06/23 and a wound culture was collected 06/23. There was concern for possible infection proximal to the incision, so she was restarted on daptomycin and ceftriaxone on 06/23. The WBC subsequently normalized. Her wound cultures in the past have grown mixed skin adithya 04/27 and 04/14, yeast 04/07, MRSA 03/11. Pt reports pain in her L foot. Expresses concern that the infection will return as soon as the antibiotics are stopped. She is worried about needing further amputation, as happened with her RLE. Allergies Allergy/AdvReac Type Severity Reaction Status Date / Time morphine Allergy Severe blisters Verified 06/06/22 21:09 in mouth Sulfa (Sulfonamide Allergy Severe rash/swelli Verified 06/06/22 21:09 Antibiotics) ng iron [From Venofer] Allergy Intermediate Hypertensio Verified 06/06/22 21:09 n vancomycin Allergy Intermediate YULIYA Verified 06/06/22 21:09 SYNDROME---CAN TAKE IF VERY SLOW DRIP. amoxicillin [From Augmentin] Allergy Mild itching/power Verified 06/06/22 21:09 h clavulanic acid Allergy Mild itching/power Verified 06/06/22 21:09 [From Augmentin] h dermabond AdvReac excoriates Uncoded 06/06/22 21:09 skin Home Medications Medication Instructions Recorded Confirmed Type ropinirole 2 mg tablet 4 mg PO HS 10/19/20 06/06/22 History metoprolol succinate 50 mg 50 mg PO QAM 03/05/21 06/06/22 History tablet,extended release 24 hr (Toprol XL) lorazepam 1 mg tablet (Ativan) 1 mg PO TID PRN Anxiety 11/04/21 06/06/22 History cyclobenzaprine 10 mg tablet 10 mg PO BID PRN Muscle Spasm 11/24/21 06/06/22 History insulin glargine 100 unit/mL (3 20 unit subcut HS 03/08/22 06/06/22 History mL) subcutaneous pen (Lantus Solostar U-100 Insulin) insulin lispro 100 unit/mL 5 unit subcut TIDM 03/08/22 06/06/22 History subcutaneous pen ondansetron 8 mg disintegrating 8 mg translingual TID PRN Nausea 03/08/22 06/06/22 History tablet zolpidem 10 mg tablet 10 mg PO HS PRN Sleep 03/08/22 06/06/22 History clopidogrel 75 mg tablet 75 mg PO QAM #30 tabs 03/30/22 06/06/22 Rx aspirin 81 mg tablet,delayed 81 mg PO DAILY #30 tabs 04/20/22 06/06/22 Rx release (Melissa Low Dose Aspirin) hydroxyzine HCl 25 mg tablet 25 mg PO QAM #90 tabs 04/20/22 06/06/22 Rx multivitamin with folic acid 400 1 tab PO QAM #30 tabs 04/20/22 06/06/22 Rx mcg tablet (Daily-Werner (with folic acid)) sertraline 50 mg tablet 25 mg PO HS #27 tabs 04/20/22 06/06/22 Rx oxycodone-acetaminophen 10 mg-325 1 tab PO Q4H PRN pain #30 tabs 05/09/22 06/06/22 Rx mg tablet (Percocet) pregabalin 75 mg capsule 75 mg PO BID 06/06/22 06/06/22 History Patient History Medical History Acidosis, lactic Acute dehydration 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 No issues per anesthesia postop progress note. Anemia Cellulitis Chronic back pain Chronic pain syndrome Costochondritis COVID-19 Depression Diabetes mellitus type 2, uncontrolled Diabetic peripheral neuropathy Diastolic CHF DM2 (diabetes mellitus, type 2) IDDM, A1c 07/2021-11% Gastritis Gastroenteritis GIB (gastrointestinal bleeding) History of amputation of great toe HTN (hypertension) Hyperlipidemia Hyponatremia Infection of left great toe due to methicillin resistant Staphylococcus aureus (MRSA) Insomnia Insulin dependent diabetes mellitus Iron deficiency anemia Nonobstructive atherosclerosis of coronary artery Numbness of lower extremity Opiate abuse, continuous Opiate dependence Opioid dependence Osteomyelitis of great toe of left foot Peripheral neuropathy Right second toe ulcer Seizures Sepsis Surgical History History of esophagogastroduodenoscopy (EGD) History of right below knee amputation (12/22/21) Right Below Knee Amputation(Right) - Davon Good MD, FACS Family History Mother , age 63 Myocardial infarction Father , age 68 or 69 Myocardial infarction Brother S/P CABG (coronary artery bypass graft) Sister Myocardial infarction x 3; she is 57yo Social History Smoking Status: Current some day smoker Tobacco Type: Cigarettes packs per day: 0.5; Cigarettes Per Day: 20; Second Hand Exposure: No; Hx Alcohol Use: No Hx Substance Use: Yes Prescribed Medications: Marijuana Substance Use Type Other:: medical marijuana Preferred Language: Urdu Communication Ability: Effective Visual Impairment: No Limitations Hearing Ability: Normal Rigging Loft Mechanic Required: No Beliefs That Will Affect Care: None marital status: Current Living Situation: Spouse current occupational status: unemployed 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 other: raising a grandchild as well; lives in [place] Feels Safe at Home: Yes Safety Concerns: Feels Safe At This Time during the past year weight has: remained stable Assistive Devices: Prosthesis, Walker and Wheelchair Review of System A complete ROS was performed and is negative except as mentioned in the HPI. Physical Exam Physical Exam: GEN: Well-appearing, in NAD. HEENT: Normocephalic, atraumatic. RESP: No increased work of breathing EXT: S/p R BKA and L great toe amputation SKIN: L great toe amputation incision site with some dark crusted blood, some erythema extending proximally. NEURO: Alert and oriented. Answers all questions appropriately. Speech not slurred. PSYCH: Normal mood, affect appropriate. Results & Data ([facility]) Vital Signs (Past 12 Hours) Vital Signs Temp Pulse Resp BP Pulse Ox O2 Del Method 06/26/22 08:16 120/64 06/26/22 07:24 36.5 C 74 16 96/56 L 94 Room Air Laboratory Results Short CBC 06/26/22 Range/Units 07:24 WBC 8.72 (4.8-10.8) K/ul Hgb 10.5 L (12.0-16.0) g/dl Hct 32.2 L (34.1-44.9) % Plt Count 262 (130-400) K/uL BMP 06/26/22 07:24 Sodium 138 Potassium 4.0 Chloride 101 Carbon Dioxide 33 H BUN 10 Creatinine 0.64 Glucose 199 H Calcium 8.9 Diagnostic Findings Microbiology 06/23/22 13:21 Chest Gram Stain - Final 06/23/22 13:21 Chest Aerobic and Anaerobic Culture - Preliminary No growth to date. 06/23/22 18:05 Foot,Left Gram Stain - Final 06/23/22 18:05 Foot,Left Wound Culture - Final No growth 06/13/22 16:39 Toe,Left Great Gram Stain - Final 06/13/22 16:39 Toe,Left Great Aerobic and Anaerobic Culture - Final No growth Pathology 06/13 L distal phalanx FINAL DIAGNOSIS Toe, left great (left great toe amputation): - Ulcers with fibrinopurulent exudates are seen. - The adjacent intact epidermis reveal pseudoepitheliomatous epidermal hyperplasia. - The underlying bone appears viable and the changes of osteomyelitis are not seen. Medications Administered Current Inpatient Medications Acetaminophen (Acetaminophen 325 Mg Tab) 650 mg PO Q4H PRN PRN Reason: Pain or Fever Stop: 07/07/22 00:33 Last Admin: 06/22/22 17:04 Dose: 650 mg Aspirin (Aspirin 81 Mg Ectab) 81 mg PO DAILY [facility] Stop: 07/07/22 08:59 Last Admin: 06/26/22 08:17 Dose: 81 mg Clopidogrel Bisulfate (Clopidogrel Bisulfate 75 Mg Tab) 75 mg PO QAM [facility] Stop: 07/07/22 08:59 Last Admin: 06/26/22 08:17 Dose: 75 mg Cyanocobalamin (Cyanocobalamin (B-12) 500 Mcg Tablet) 1,000 mcg PO QAM [facility] Stop: 07/16/22 08:59 Last Admin: 06/26/22 08:18 Dose: 1,000 mcg Dextrose (Dextrose 50% 50 Ml Syringe) 25 - 50 ml IV UD PRN; Protocol PRN Reason: Hypoglycemia Protocol Stop: 07/07/22 00:33 Diclofenac Sodium (Diclofenac Sod 1% Gel 100 Gm Tube) 2 gm EXT QID RICKY; Protocol Stop: 07/18/22 08:59 Last Admin: 06/26/22 08:18 Dose: 2 gm Diltiazem HCl (Diltiazem Hcl 30 Mg Tab) 30 mg PO AC [facility] Stop: 07/19/22 07:29 Last Admin: 06/26/22 08:17 Dose: 30 mg Doxepin HCl (Doxepin Hcl 25 Mg Capsule) 25 mg PO HS [facility] Stop: 07/24/22 21:59 Last Admin: 06/25/22 20:04 Dose: 25 mg Glucagon (Glucagon For Inj 1 Mg Vial) 1 mg SQ UD PRN; Protocol PRN Reason: Hypoglycemia Protocol Stop: 07/07/22 00:33 Glucose (Glucose 40% Gel 15 Gm Tube) 15 - 30 gm PO UD PRN; Protocol PRN Reason: Hypoglycemia Protocol Stop: 07/07/22 00:33 Glucose (Glucose 10 Tab/Tube) 4 - 8 tab PO UD PRN; Protocol PRN Reason: Hypoglycemia Treatment Stop: 07/07/22 00:33 Heparin Sodium (Beef Lung) (Heparin 10 Unit/Ml 5 Ml Flush) 5 ml FLUSH PRN PRN PRN Reason: Flush Stop: 07/11/22 21:30 Last Admin: 06/22/22 23:36 Dose: 5 ml Hydralazine HCl (Hydralazine Hcl 20 Mg/Ml Vial) 10 mg IV Q4H PRN PRN Reason: Blood Pressure - High Stop: 07/13/22 14:03 Last Admin: 06/14/22 16:59 Dose: 10 mg Hydromorphone HCl (Hydromorphone Inj 1 Mg/Ml Syringe) 1 mg IV Q2H PRN PRN Reason: Pain Stop: 07/03/22 10:45 Last Admin: 06/22/22 23:35 Dose: 1 mg Hydroxyzine HCl (Hydroxyzine Hcl 25 Mg Tab) 25 mg PO QAM RICKY Stop: 07/07/22 08:59 Last Admin: 06/26/22 08:18 Dose: 25 mg Promethazine HCl 12.5 mg/ (Sodium Chloride) 50.5 mls @ 202 mls/hr IV Q6H PRN PRN Reason: Nausea And Vomiting Stop: 07/07/22 18:53 Last Infusion: 06/20/22 21:35 Dose: Infused Heparin Sodium/Dextrose (Heparin Sodium/Dextrose) 25,000 units in 500 mls @ 33 mls/hr IV .[id number] [facility]; Protocol Stop: 07/23/22 09:44 Last Admin: 06/26/22 09:17 Dose: 1,650 units/hr, 33 mls/hr Daptomycin 300 mg/ Syringe 6 mls @ 3 mls/min IV Q24H [facility]; Protocol Stop: 06/30/22 18:29 Last Admin: 06/25/22 18:21 Dose: 3 mls/min Ceftriaxone Sodium 2,000 mg/ (Dextrose) 70 mls @ 100 mls/hr IV Q24H [facility]; Protocol Stop: 06/30/22 18:59 Last Infusion: 06/25/22 20:18 Dose: Infused Insulin Aspart (Insulin Aspart Per Unit) 0 units SC ACHS [facility] Stop: 07/23/22 16:29 Last Admin: 06/26/22 08:27 Dose: 2 units Insulin Glargine (Lantus Per Unit Charge) 10 units SQ QAM [facility] Stop: 07/13/22 08:59 Last Admin: 06/26/22 08:28 Dose: 10 units Ioversol (Optiray 350 100ml) 88 ml IV ONCE ONE Stop: 06/18/22 15:55 Last Admin: 06/18/22 15:55 Dose: 88 ml Lactobacillus Acidophilus (Advanced Probiotic 1250 Mg Capsule) 2 cap PO DAILY [facility] Stop: 07/15/22 17:14 Last Admin: 06/26/22 08:17 Dose: 2 cap Lorazepam (Lorazepam 1 Mg Tab) 1 mg PO TID PRN PRN Reason: Anxiety Stop: 07/07/22 00:33 Last Admin: 06/26/22 03:55 Dose: 1 mg Metoprolol Succinate (Metoprolol Succ 50mg Ext Rel Tab) 50 mg PO QAM [facility] Stop: 07/07/22 08:59 Last Admin: 06/26/22 08:17 Dose: 50 mg Metoprolol Tartrate (Metoprolol Tartrate 1 Mg/Ml Vial) 5 mg IV Q5M PRN PRN Reason: Tachycardia Stop: 07/06/22 23:38 Last Admin: 06/12/22 05:27 Dose: 5 mg Miscellaneous (Carbohydrates For Hypoglycemia ) 15 - 30 gm PO UD PRN PRN Reason: Hypoglycemia Protocol Stop: 07/07/22 00:33 Multivitamins (Multivitamin Tab) 1 tab PO QAM [facility] Stop: 07/07/22 08:59 Last Admin: 06/26/22 08:17 Dose: 1 tab Nitroglycerin (Nitroglycerin Sl 0.4 Mg/Tab Tab) 0.4 mg SL Q5M PRN PRN Reason: Chest Pain Stop: 07/13/22 23:31 Ondansetron HCl (Ondansetron Inj 2 Mg/Ml 2 Ml Vial) 4 mg IV Q6H PRN PRN Reason: Nausea And Vomiting Stop: 07/14/22 03:29 Last Admin: 06/26/22 00:29 Dose: 4 mg Oxycodone HCl (Oxycodone Hcl Ir 5 Mg Tab (Immediate Release)) 15 mg PO Q4H PRN PRN Reason: Pain Stop: 07/08/22 17:59 Last Admin: 06/26/22 11:14 Dose: 15 mg Oxycodone HCl (Oxycodone Hcl 20 Mg Tabcr (Oxycontin)) 20 mg PO BID [facility]ICKY Stop: 07/09/22 20:59 Last Admin: 06/26/22 08:16 Dose: 20 mg Pantoprazole Sodium (Pantoprazole 40 Mg Tab) 40 mg PO BID [facility] Stop: 07/18/22 08:59 Last Admin: 06/26/22 08:17 Dose: 40 mg Pregabalin (Pregabalin 100 Mg Cap) 100 mg PO TID [facility]ICK[facility] Stop: 07/17/22 20:59 Last Admin: 06/26/22 08:27 Dose: 100 mg Ropinirole HCl (Ropinirole Hcl 2 Mg Tablet) 4 mg PO HS [facility] Stop: 07/07/22 20:59 Last Admin: 06/25/22 20:04 Dose: 4 mg Sertraline HCl (Sertraline Hcl 50 Mg Tablet) 50 mg PO HS [facility]ICK[facility] Stop: 07/16/22 20:59 Last Admin: 06/25/22 20:04 Dose: 50 mg Vitamin D (Cholecalciferol 5,000 Units 125 Mcg Tab) 5,000 units PO QAM [facility] Stop: 07/23/22 08:59 Last Admin: 06/26/22 08:17 Dose: 5,000 units Zolpidem Tartrate (Zolpidem Tartrate 10 Mg Tab) 10 mg PO HS PRN PRN Reason: Sleep Stop: 07/07/22 00:33 Last Admin: 06/25/22 20:09 Dose: 10 mg
[2022-06-26] MEDS ORDERED: HYDROmorphone INJ 1 MG/ML SYRINGE IV STA ×2 (16:57→23:33)
[2022-06-26] MEDS: DAPTOmycin 300 MG in SYRINGE 0 ML IV SCH (18:01)
[2022-06-26] MEDS: RIVAROXABAN 15 MG TAB PO SCH (18:01)
[2022-06-26] MEDS: cefTRIAXone SODIUM 2,000 MG in DEXTROSE 5% 50 ML IV SCH ×2 (18:03→18:32)
[2022-06-26 19:29] LABS: Cdiff Antigen Negative; Cdiff Toxin A+B Negative Cdiff Toxin (Negative)
--- NOTE | 2022-06-26 19:44 | Hospitalist Progress Note ---
Date of Service June 26, 2022 Assessment & Plan (1) Ulcer of left great toe due to diabetes mellitus: Plan: Patient seen by PCP [employer]ICAL [employer]OR with erythema/streaking up leg from 1st digit of left foot/distal 1st toe ulcer Started 3 days [employer]CH[employer]ICAL [employer] and sent to ER for admission. Initially placed on Ceftriaxone 2gm IV/Doxycycline 100mg Poor vascular access/PAD at baseline --> Dr Monet consulted last week, patient underwent placement of castro catheter R IJ--> will need flushes once completed abx MRI IMPRESSION with concerns for minimal marrow edema of first distal phalangeal tuft with preserved T1 signal suggestive of osteitis. Early osteo could appear similarly. Dr Mathew Noriega consulted from podiatry POD #12 s/p Fillet of left distal great toe with Dr Noriega Pathology report - underlying bone appeared viable and changes of osteomyelitis were NOT seen Culture from 06/13 from the left great toe negative for any specific pathogen Completed her IV antibiotics 06/20/22 Orthotics consulted and fit her surgical shoe-- patient refused CAM boot; has a post-op surgical shoe but she is not wearing it despite myself & Dr Noriega encouraging her to wear it with any weight-bearing Vit D low, replacement ordered and can continue Late last week the patient's WBC count had trended up and CRP - previously <0.5 - also trended up minimally Dr Noriega & I inspected the wound 06/23/22 together - he took a culture, this has remained negative IV rocephin & IV daptomycin resumed evening of 06/23/22 WBC count has normalized CRP with minimal elevation ID consultation requested today they advised a course of PO doxycycline with PO cefpodoxime (non-formulary here) will d/c rocephin/daptomycin after today's doses change to PO doxy and PO omnicef 06/27 with stop date of 07/06 appreciate ID consultation appreciate Dr Noriega's helpful assistance and care he is pleased with appearance of her operative site (2) Internal jugular (IJ) vein thromboembolism, acute: Plan: right IJ catheter-associated heparin drip started AM of 06/23/22 gen surg consulted and they removed her Castro catheter 06/23/22 per Uptodate lovenox or coumadin x 3 months is preferred Rx plan however, I do not think she would comply with coumadin visits for INR checks and I would be concerned about fluctuating INR levels given her polypharmacy I am concerned about compliance with lovenox even if once daily there is now data, albeit limited, to suggest that DOACs are accepted choice for Rx this would certainly be better from compliance standpoint thus, will start xarelto 15mg PO BID x 21 days tonight, then 20mg daily thereafter x 3 months in total stop heparin drip tonight pharmacy check completed - ZERO dollar copay for xarelto (3) Acute leg pain: Plan: Lyrica increased to 100mg TID this admission. She was previously requesting IV dilaudid 1mg every 2 hours nearly scheduled even 7+ days out from her surgery. During prior admission in April she was seen by pain management - they advised Oxycontin 10mg BID. She would benefit from basal/long-acting pain meds. Thus started oxycontin 10mg BID evening of 06/21/22. 06/23 - increased oxycontin to 15mg BID 06/25 - increased oxycontin to 20mg BID Patient seen by pain management this admission - advised to stop IV dilaudid. Due to ongoing pain I changed her dosing frequency of oxycodone to q4h and increased the dose to 15mg Despite all of these changes she has reported this is simply not enough and continuously requests the IV dilaudid She continues to decline an ankle block by Dr Noriega I am suspicious she has some element of neuropathy driving this pain Previously took nortriptyline - will add back on 06/27 starting with 25mg ni ghtly stop doxepin gave 1 dose of IV dilaudid today for her dressing change with Dr Noriega she would benefit from following with pain management as outpatient but uncertain if she would go (4) Cellulitis of left foot: Plan: had resolved abx d/c 06/20/22 abx resumed 06/23/22 due to erythema adjacent to operative site; culture negative from 06/23, operative site has looked good since with normalization of WBC count and scant CRP elevation see above in #1 (5) Diabetes mellitus type 2, uncontrolled: Plan: A1c 8.7% in March 2022 and all prior a1c's uncontrolled cont lantus 10 units daily cont novolog achs BSGs remain <200 (6) Nausea: Plan: 2nd to narcotics probable underlying gastroparesis use zofran or reglan prn (7) MRSA (methicillin resistant staph aureus) culture positive: Plan: Hx of from L foot prior cx in February repeat culture from L foot sent 06/23/22 and remains negative see above #1 (8) PAD (peripheral artery disease): Plan: Continue aspirin and clopidogrel Quit smoking >1 year ago, does apparently use marijuana vape pens -- will need to ask about medical card --> SEE ABOVE, MMJ CARD, uses tinctures, RSO, topicall creams for additional pain relief Ideally should be on statin therapy 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 and prior tobacco usage but EXCELLENT pulses on examination (previous intervention by Dr Lin to small vessels of LLE) (9) Anxiety: Plan: severe Cont lorazepam prn Cont sertraline 50mg Patient declining to see and speak with psychiatry while here (10) Depression: Plan: INCREASED ZOLOFT 50mg --> tolerating well, continue at discharge f/u PCP for further dose titration declines psych intervention while here (11) Diabetic peripheral neuropathy: Plan: Continue pregabalin checked B12 -- 261 - REPLACEMENT ORDERED while inpatient and continue at d/c Continue increased Lyrica as above, MMJ outpatient creams Add back nortryptiline 25mg HS on 06/27 stop doxepin - not effective for sleep anyway (12) Chronic pain syndrome: Plan: As above pain management consult appreciated see above re: pain meds (13) Poor venous access: Plan: S/P CASTRO W/ DR MONET earlier this stay was to have this removed 06/21 but at last moment she requested the Castro remain in place then, 06/22, complaining of significant pain at base of neck doppler obtained - right IJ thrombus detected 06/23 - castro removed by Dr Good catheter tip culture negative (14) B12 deficiency: Plan: B12 low normal 261, replacement ordered would continue x 1 year (15) Shoulder pain: Plan: Calcific tendinopathy seen on x-rays -- right shoulder f/u with ortho if persistent pain - x-rays c/w chronic tendonitis and/or bursitis (16) Vitamin D deficiency: Plan: 25-OH vit D level 20 this admission cont replacement vit D 5000 units daily (17) Anemia: Plan: hx iron deficiency anemia intolerant to Venofer celiac screen negative Ferlicit x 2 this admission most recent ferritin 31 and slowly improving from low of 8 in October 2021 (18) Insomnia: Plan: severe she goes days without sleeping both here at hospital and at home is on ambien chronically - has tolerance - simply ineffective has tried trazodone in past w/o effect atarax 50 at HS has been ineffective doxepin 25mg HS ineffective resuming nortriptyline 25mg HS on 06/27 to help with neuropathy and sleep (19) Diarrhea: Plan: cdiff gene + but toxin negative in light of copious abx usage for the last few months and large amounts of diarrhea today would be in favor of treating start vancomycin 125mg QID lactinex Plan extensively updated at bedside over the weekend I corresponded with Dr Noriega from podiatry today - he was pleased with her operative site/incision; dressings changed care d/w infectious disease by phone care d/w anticoagulation clinic medical social consultant re: anticoagulation hopefully transition home next 48 hours Admission and Anticipated Discharge Date Admission Date: June 06, 2022 Subjective patient with multiple complaints during the visit - 1. patient very upset about not receiving IV dilaudid; most of the conversation was focused on this. We discussed that oxycontin has been initiated and titrated two additional times. Discussed that oxycodone has been increased above her usual percocet 10's (now on 15mg q4h prn) that she typically takes at home. She commented "these don't work." I then asked her why she gets refills as outpatient on her percocet if they are not effective and she said "they take the edge off" (of her pain). I explained again we are trying to find an oral regimen of meds that will keep her comfortable outside the hospital/at home. We discussed that she likely has a severe neuropathic pain component as the pain starts in the distal barbosa and radiates into the entire foot. Describes it as a throbbing. 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 We discussed that narcotics are not that effective for Rx of neuropathic pain. She previously took nortriptyline - she said her PCP took her off of it but she was uncertain why. We talked about restarting this for neuropathy & poor sleep. 2. continues to have severe insomnia despite trial of doxepin, only sleeping 2- 3 hours/night; blames insomnia on pain 3. having diarrhea - went at least 4-5 times today already since waking up; "reminds me of when I had c.diff" 4. during the visit she was crying considerably due to #1 Review of Systems Review of Systems: gen - no fevers or chills; flowsheets showing 75% of meals consumed at times; sometimes 50% cv - no orthopnea or cp GI - nausea but no emesis; no pain pulm - no cough, no dyspnea psych - crying, insomnia, anxiety Physical Exam Physical Exam: gen - crying, very upset, agitated at times, looks tired mouth - MMM neck - no JVD heart - RRR, s1 s2, no murmurs lungs - CTA b/l abd - soft NT ND BS+ vascular - left foot pulses 2+ extremity - LLE - no edema; left foot dressings intact; right BKA psych - a/o x 3, crying/upset Results & Data Results & Data ([facility]) Vital Signs (Past 12 Hours) Vital Signs Temp Pulse Resp BP BP Pulse Ox O2 Del Method 06/26/22 16:02 37.3 C 71 18 148/70 H 93 Room Air 06/26/22 12:30 69 142/66 H 06/26/22 08:16 120/64 Laboratory Results Laboratory Results - last 24 hr 06/25/22 06/26/22 06/26/22 20:31 00:17 05:33 WBC RBC Hgb Hct MCV MCH MCHC RDW Std Deviation RDW Coeff of [place] Plt Count MPV Immature Gran % (Auto) Neut % (Auto) Lymph % (Auto) [place] % (Auto) Eos % (Auto) Baso % (Auto) Neut # (Auto) Lymph # (Auto) [place] # (Auto) Eos # (Auto) Baso # (Auto) Immature Gran # (Auto) APTT 45.8 H* 44.7 H PTT Ratio 1.7 1.6 Sodium Potassium Chloride Carbon Dioxide Anion Gap BUN Creatinine Est Cr Clr Drug Dosing Est GFR ( Amer) Est GFR (Non-Af Amer) BUN/Creatinine Ratio Glucose POC Glucose 178 H Calcium Stl C. diff Tox B Gene Stl C.difficile Tox A&B 06/26/22 06/26/22 06/26/22 07:24 07:24 07:24 WBC 8.72 RBC 3.88 L Hgb 10.5 L Hct 32.2 L MCV 83.0 MCH 27.1 MCHC 32.6 RDW Std Deviation 46.2 RDW Coeff of [place] 15.4 H Plt Count 262 MPV 10.2 Immature Gran % (Auto) 0.5 Neut % (Auto) 57.4 Lymph % (Auto) 23.2 [place] % (Auto) 9.1 Eos % (Auto) 8.8 Baso % (Auto) 1.0 Neut # (Auto) 5.01 Lymph # (Auto) 2.02 [place] # (Auto) 0.79 Eos # (Auto) 0.77 H Baso # (Auto) 0.09 Immature Gran # (Auto) 0.04 H APTT 48.3 H* PTT Ratio 1.8 Sodium 138 Potassium 4.0 Chloride 101 Carbon Dioxide 33 H Anion Gap 4 BUN 10 Creatinine 0.64 Est Cr Clr Drug Dosing 89.2 Est GFR ( Amer) 114.0 Est GFR (Non-Af Amer) 98.4 BUN/Creatinine Ratio 15.6 Glucose 199 H POC Glucose Calcium 8.9 Stl C. diff Tox B Gene Stl C.difficile Tox A&B 06/26/22 06/26/22 06/26/22 07:56 11:57 16:00 WBC RBC Hgb Hct MCV MCH MCHC RDW Std Deviation RDW Coeff of [place] Plt Count MPV Immature Gran % (Auto) Neut % (Auto) Lymph % (Auto) [place] % (Auto) Eos % (Auto) Baso % (Auto) Neut # (Auto) Lymph # (Auto) [place] # (Auto) Eos # (Auto) Baso # (Auto) Immature Gran # (Auto) APTT PTT Ratio Sodium Potassium Chloride Carbon Dioxide Anion Gap BUN Creatinine Est Cr Clr Drug Dosing Est GFR ( Amer) Est GFR (Non-Af Amer) BUN/Creatinine Ratio Glucose POC Glucose 183 H 194 H Calcium Stl C. diff Tox B Gene Positive Cdiff Gene H Stl C.difficile Tox A&B Negative Cdiff Toxin 06/26/22 17:13 WBC RBC Hgb Hct MCV MCH MCHC RDW Std Deviation RDW Coeff of [place] Plt Count MPV Immature Gran % (Auto) Neut % (Auto) Lymph % (Auto) [place] % (Auto) Eos % (Auto) Baso % (Auto) Neut # (Auto) Lymph # (Auto) [place] # (Auto) Eos # (Auto) Baso # (Auto) Immature Gran # (Auto) APTT PTT Ratio Sodium Potassium Chloride Carbon Dioxide Anion Gap BUN Creatinine Est Cr Clr Drug Dosing Est GFR ( Amer) Est GFR (Non-Af Amer) BUN/Creatinine Ratio Glucose POC Glucose 234 H Calcium Stl C. diff Tox B Gene Stl C.difficile Tox A&B PG Care Time/CCT Total # of Minutes Spent Total Time Spent with Patient: Total time spent is greater than 50% in coordination of care (as documented) at patient's floor/unit and/or counseling patient: Coding Level of Care Code 79377 Subseq Hosp Care Lvl 3 Diagnoses Ulcer of left great toe due to diabetes mellitus E11.621; L97.529 Internal jugular (IJ) vein thromboembolism, acute I82.C19 Acute leg pain M79.606 Cellulitis of left foot L03.116 Diabetes mellitus type 2, uncontrolled E11.65 Nausea R11.0 MRSA (methicillin resistant staph aureus) culture positive Z22.322 PAD (peripheral artery disease) I73.9 Anxiety F41.9 Depression F32.9 Diabetic peripheral neuropathy E11.42 Chronic pain syndrome G89.4 Poor venous access I87.8 B12 deficiency E53.8 Shoulder pain M25.519 Vitamin D deficiency E55.9 Anemia D64.9 Insomnia G47.00 Diarrhea R19.7
--- NOTE | 2022-06-26 22:01 | Orthopedic Progress Note ---
Date of Service June 26, 2022 Assessment & Plan (1) Amputation of left great toe: Plan Dressing applied. Dressing not to be removed. Admission and Anticipated Discharge Date Admission Date: June 06, 2022 Subjective Patient seen at bedside. Dressing is absent. Results & Data ([facility]) Vital Signs (Past 12 Hours) Vital Signs Temp Pulse Resp BP Pulse Ox O2 Del Method 06/26/22 16:02 37.3 C 71 18 148/70 H 93 Room Air 06/26/22 12:30 69 142/66 H
[2022-06-26] MEDS: SERTRALINE HCL 50 MG TABLET PO SCH (22:15)
[2022-06-26] MEDS: ZOLPIDEM TARTRATE 10 MG TAB PO PRN (22:15)
[2022-06-26] MEDS: rOPINIRole HCL 2 MG TABLET PO SCH (22:15)
[2022-06-26] MEDS: VANCOMYCIN HCL 125 MG/2.5ML SOLN PO SCH (22:16)
[2022-06-26] MEDS: RASPBERRY SYRUP 5 ML UDP PO SCH (22:17)
[2022-06-26] MEDS: CYCLOBENZAPRINE HCL 5 MG TAB PO SCH (23:55)
[2022-06-27] MEDS: VANCOMYCIN HCL 125 MG/2.5ML SOLN PO SCH ×3 (01:58→13:03)
[2022-06-27] MEDS: RASPBERRY SYRUP 5 ML UDP PO SCH ×3 (01:59→13:03)
[2022-06-27] MEDS: ONDANSETRON INJ 2 MG/ML 2 ML VIAL IV PRN (04:37)
[2022-06-27] MEDS: oxyCODONE HCL IR 5 MG TAB (IMMEDIATE RELEASE) PO PRN ×3 (04:40→13:05)
[2022-06-27] MEDS: LORazepam 1 MG TAB PO PRN (05:59)
[2022-06-27] MEDS: RIVAROXABAN 15 MG TAB PO SCH (05:59)
[2022-06-27] MEDS ORDERED: LOPERAMIDE HCL 2 MG CAP PO STA (06:43)
[2022-06-27 07:09] VITALS: PULSE 80; TEMP 98.8; O2SAT 96
[2022-06-27] MEDS: dilTIAZem HCL 30 MG TAB PO SCH ×2 (07:46→11:51)
[2022-06-27] MEDS: CHOLECALCIFEROL 5,000 UNITS 125 MCG TAB PO SCH (08:12)
[2022-06-27] MEDS: oxyCODONE HCL 20 MG TABCR (OxyCONTIN) PO SCH (08:12)
[2022-06-27] MEDS: PREGABALIN 100 MG CAP PO SCH ×2 (08:12→13:03)
[2022-06-27] MEDS: CLOPIDOGREL BISULFATE 75 MG TAB PO SCH (08:13)
[2022-06-27] MEDS: METOPROLOL SUCC 50MG EXT REL TAB PO SCH (08:13)
[2022-06-27] MEDS: ADVANCED PROBIOTIC 1250 MG CAPSULE PO SCH (08:13)
[2022-06-27] MEDS: hydrOXYzine HCl 25 MG TAB PO SCH (08:13)
[2022-06-27] MEDS: CYCLOBENZAPRINE HCL 5 MG TAB PO SCH (08:13)
[2022-06-27] MEDS: CYANOCOBALAMIN (B-12) 500 MCG TABLET PO SCH (08:13)
[2022-06-27] MEDS: PANTOprazole 40 MG TAB PO SCH (08:14)
[2022-06-27] MEDS: DICLOFENAC SOD 1% GEL 100 GM TUBE EXT SCH ×2 (08:14→12:53)
[2022-06-27] MEDS: MULTIVITAMIN TAB PO SCH (08:14)
[2022-06-27] MEDS: INSULIN ASPART PER UNIT SC SCH ×2 (08:50→12:52)
[2022-06-27] MEDS: LANTUS PER UNIT CHARGE SQ SCH (08:50)
[2022-06-27 09:14] LABS: BUN Creatinine Ratio 15.9 (10-20); Calcium 9.4 mg/dl (8.5-10.1); Creatinine Clr Calc Pharmacy 90.6 ml/min; Est GFR (African American) 114.6 ml/min; Est GFR (Non-African American) 98.9 ml/min; Magnesium 1.8 mg/dl (1.7-2.4); Potassium 4.4 mmol/L (3.5-5.1)
[2022-06-27 11:50] VITALS: BP 197/78
--- NOTE | 2022-06-27 13:01 | Discharge Summary ---
Date of Service June 27, 2022 Admission HPI Per Admitting Provider The patient is a 57-year-old female with a past medical history including chronic pain syndrome, anxiety and depression, insomnia, gastroparesis, vitamin D deficiency, esophagitis, right second toe ulcer, PAD, osteomyelitis of great right toe, MRSA positive, status post AKA right lower extremity, diabetic peripheral neuropathy, nonobstructive CAD and chronic back pain. The patient presents to the emergency department with a recurrence of left great toe pain and redness. Her most recent hospitalization from 04/27-05/09/2022 was for treatment of osteomyelitis of the left great toe with daptomycin IV. She has h ad 9 previous admissions this year for infections and amputation of right lower extremity, and recurrent infection of the left lower extremity. Principal Diagnosis Diabetic toe infection, s/p partial amputation Acute on chronic pain syndrome, opioid dependence C. diff diarrhea Discharge Exam gen - angry, not making eye contact, refusing all medications heart - RRR, s1 s2, no murmurs lungs - CTA b/l extremity - LLE - no edema; left foot with great toe with no dressing on as patient ripped it off her self against advice,scant oozing of blood from incision,sutures in place; right BKA psych - a/o x 3, angry, yelling Discharge Data Allergies Allergy/AdvReac Type Severity Reaction Status Date / Time morphine Allergy Severe blisters Verified 06/06/22 21:09 in mouth Sulfa (Sulfonamide Allergy Severe rash/swelli Verified 06/06/22 21:09 Antibiotics) ng iron [From Venofer] Allergy Intermediate Hypertensio Verified 06/06/22 21:09 n vancomycin Allergy Intermediate YULIYA Verified 06/06/22 21:09 SYNDROME---CAN TAKE IF VERY SLOW DRIP. amoxicillin [From Augmentin] Allergy Mild itching/power Verified 06/06/22 21:09 h clavulanic acid Allergy Mild itching/power Verified 06/06/22 21:09 [From Augmentin] h dermabond AdvReac excoriates Uncoded 06/06/22 21:09 skin Consultations 06/06/22 21:42 ED Decision to Admit Stat 06/08/22 12:53 Consult Vascular Surgery Routine 06/11/22 10:54 Consult Podiatry Routine 06/12/22 03:46 Consult Behavioral Health Liaison Routine 06/22/22 12:37 Consult Pain Management Routine 06/23/22 10:40 Consult General Surgery Routine 06/26/22 11:13 Consult Infectious Diseases Routine Procedures Performed Operation Date: 06/09/22 07:00 Actual Procedures p Rivas Catheter Insertion,Right Jugular Approach, Ultrasound Localization of Right Internal Jugular Vein,Fluoroscopy for Positioning(Right) - Lavon Monet MD Operation Date: 06/13/22 07:00 Actual Procedures p Left Hallux Great Toe Amputation(Left) - Mathew Noriega, DPM, MS Operation Date: 06/21/22 08:20 <No data on this case meets the specified criteria> Operation Date: 06/23/22 09:40 Actual Procedures p Rivas Removal(Not Applicable) - Davon Good MD, FACS Ordered Studies 06/06/22 19:56 US venous doppler LE LT Stat 06/08/22 11:50 MRI Foot [MR foot LT w/o con] Routine 06/09/22 07:10 EV cvc insrt tunnel wo prt/chlorination operator Routine US EV guide vascular access Routine 06/09/22 11:35 US EV guide vascular access Routine 06/18/22 13:02 CT chest diagnostic w con Routine 06/22/22 12:31 US venous doppler UE RT Urgent Hospital Course (1) Ulcer of left great toe due to diabetes mellitus: Patient seen by PCP [employer] with erythema/streaking up leg from 1st digit of left foot/distal 1st toe ulcer Started 3 days [employer] and sent to ER for admission. Initially placed on Ceftriaxone 2gm IV/Doxycycline 100mg Poor vascular access/PAD at baseline --> Dr Monet of Vascular Surgery consulted, patient underwent placement of rivas catheter R IJ MRI IMPRESSION with concerns for minimal marrow edema of first distal phalangeal tuft with preserved T1 signal suggestive of osteitis. Early osteo could appear similarly. Dr Mathew Noriega consulted from podiatry POD #13 s/p Fillet of left distal great toe with Dr Noriega Pathology report - underlying bone appeared viable and changes of osteomyelitis were NOT seen Culture from 06/13 from the left great toe negative for any specific pathogen Completed her IV antibiotics 06/20/22 Orthotics consulted and fit her surgical shoe-- patient refused CAM boot; has a post-op surgical shoe but she is not wearing it despite hospitalist & Dr Noriega encouraging her to wear it with any weight-bearing Vit D low, replacement ordered and can continue Late last week the patient's WBC count had trended up and CRP - previously <0.5 - also trended up minimally Dr Noriega & hospitalist inspected the wound 06/23/22 together - he took a culture, this has remained negative IV rocephin & IV daptomycin resumed evening of 06/23/22 WBC count has normalized CRP with minimal elevation ID consultation requested -they advised a course of PO doxycycline with PO cefpodoxime (non-formulary here)-finish out PO doxy and PO omnicef with stop date of 07/06 although patient states she refuses to take further antibiotics after discharge because eis angry about being discharged and not getting IV opioids appreciate ID consultation appreciate Dr Noreiga's helpful assistance and care he is pleased with appearance of her operative site Wound looks good on day of discharge, no signs of infection Continue daily dressing changes but patient tells me she refuses to wear a dressing upon discharge-suspect trying to manipulate to get recurrent doses of IV Dilaudid (2) Internal jugular (IJ) vein thromboembolism, acute: right IJ catheter-associated heparin drip started AM of 06/23/22 gen surg consulted and they removed her Rivas catheter 06/23/22 per Uptodate lovenox or coumadin x 3 months is preferred Rx plan however, I do not think she would comply with coumadin visits for INR checks and I would be concerned about fluctuating INR levels given her polypharmacy I am concerned about compliance with lovenox even if once daily there is now data, albeit limited, to suggest that DOACs are accepted choice for Rx this would certainly be better from compliance standpoint thus, started xarelto 15mg PO BID x 21 days , then 20mg daily thereafter x 3 months in total -she says she refuses to take this but won't give me a reason why other than that eis angry she is not being given any further IV opioids on the day of discharge -STOP ASA while on Xarelto, can continue Plavix (3) Acute leg pain: Lyrica increased to 100mg TID this admission. She was previously requesting IV dilaudid 1mg every 2 hours nearly scheduled even 7+ days out from her surgery. During prior admission in April she was seen by pain management - they advised Oxycontin 10mg BID. She would benefit from basal/long-acting pain meds. Thus started oxycontin 10mg BID evening of 06/21/22. 06/23 - increased oxycontin to 15mg BID 06/25 - increased oxycontin to 20mg BID Patient seen by pain management this admission - advised to stop IV dilaudid. Due to ongoing pain, changed her dosing frequency of oxycodone to q4h and increased the dose to 15mg Despite all of these changes she has reported this is simply not enough and continuously requests the IV dilaudid from every doctor that sees her including the overnight covering physicians She continues to decline an ankle block by Dr Noriega I am suspicious she has some element of neuropathy driving this pain Previously took nortriptyline - added back on 06/27 starting with 25mg nightly stopped doxepin she would benefit from following with pain management as outpatient but uncertain if she would go -dc to home with OxyContinin 20mg po bid scheduled, with oxycodone IR 15 mg po q6h prn breakthrough pain, Lyrica 100mg po tid, nortriptyline 25mg hs -f/u with PCP -counseled that opioids aren't great for neuropathic pain and that her pain is exacerbated by the fact that she has become opioid dependent and that this should improve with time as her daily dose of opioids decreases-she is angry about this and shouts "I am not an addict!" and states that she refuses to take any pain meds when she goes home. Continues to state that she never needs any pain meds outside of the hospital. When asked what her plan was for pain control given that she was requiring extremely high doses of IV Dilaudid for weeks on end, she stated that "I don't have one." I did explain that I want her to stay on the doses of OxyContin and oxycodone IR that we have her on here so that she doesn't suffer fro severe, worsening pain or withdrawal after discharge-thus, I did prescribe her the meds to her pharmacy and encouraged her to pick them up. (4) Cellulitis of left foot: had resolved abx d/c 06/20/22 abx resumed 06/23/22 due to erythema adjacent to operative site; culture negative from 06/23, operative site has looked good since with normalization of WBC count and scant CRP elevation see above in #1 -finish out po abx (5) Diabetes mellitus type 2, uncontrolled: A1c 8.7% in March 2022 and all prior a1c's uncontrolled cont lantus 10 units daily cont novolog achs BSGs remain <200 (6) Nausea: 2nd to narcotics probable underlying gastroparesis use zofran or reglan prn now reoslved (7) MRSA (methicillin resistant staph aureus) culture positive: Hx of from L foot prior cx in February repeat culture from L foot sent 06/23/22 and remains negative see above #1 (8) PAD (peripheral artery disease): Continue clopidogrel but HOLD ASA while on Xarelto Quit smoking >1 year ago Ideally should be on statin therapy 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 and prior tobacco usage but EXCELLENT pulses on examination (previous intervention by Dr Lin to small vessels of LLE) (9) Anxiety: severe Cont lorazepam prn Cont sertraline 50mg and recommend increasing to 100mg as outpt with PCP Patient declining to see and speak with psychiatry while here (10) Depression: INCREASED ZOLOFT 50mg --> tolerating well, continue at discharge f/u PCP for further dose titration declines psych intervention while here (11) Diabetic peripheral neuropathy: Continue pregabalin checked B12 -- 261 - REPLACEMENT ORDERED while inpatient and continue at d/c Continue increased Lyrica as above, MMJ outpatient creams Add back nortryptiline 25mg HS on 06/27 stop doxepin - not effective for sleep anyway (12) Chronic pain syndrome: As above pain management consult appreciated see above re: pain meds (13) Poor venous access: S/P RIVAS W/ DR MONET earlier this stay was to have this removed 06/21 but at last moment she requested the Rivas remain in place then, 06/22, complaining of significant pain at base of neck doppler obtained - right IJ thrombus detected 06/23 - rivas removed by Dr Good catheter tip culture negative (14) B12 deficiency: B12 low normal 261, replacement ordered would continue x 1 year (15) Shoulder pain: Calcific tendinopathy seen on x-rays -- right shoulder f/u with ortho if persistent pain - x-rays c/w chronic tendonitis and/or bursitis (16) Vitamin D deficiency: 25-OH vit D level 20 this admission cont replacement vit D 5000 units daily (17) Anemia: hx iron deficiency anemia and also with B12 deficiency intolerant to Venofer celiac screen negative Ferlicit x 2 this admission most recent ferritin 31 and slowly improving from low of 8 in October 2021 -continue B12 po (18) Insomnia: severe she goes days without sleeping both here at hospital and at home is on ambien chronically - has tolerance - simply ineffective has tried trazodone in past w/o effect atarax 50 at HS has been ineffective doxepin 25mg HS ineffective resuming nortriptyline 25mg HS on 06/27 to help with neuropathy and sleep (19) Diarrhea: cdiff gene + but toxin negative in light of copious abx usage for the last few months and large amounts of diarrhea today would be in favor of treating start vancomycin 125mg QID and finish a 10 day course Plan Dispo-dc to home today High risk for readmission due to issues with pain control and diabetes, recurrent infections, and non-compliance with prescribed medical treatments and recommendations Total Time Total Time Spent Total Time Spent (In Minutes): 45 min Discharge Plan Discharge Items Patient Disposition: Home - Home Health Services Reason For Visit: DIABETIC TOE INFECTION, UNCONTROLLED HTN Discharge Diagnosis: Diabetic toe infection, chronic pain syndrome Activity: As commented below Bathing Comment: No soaking in tubs but can shower and pat wound dry, apply dressing daily Non-emergency contact: Primary Care Provider and Surgeon Call non-emergency contact if: you have any medication questions, your symptoms worsen, you have a fever, your wound has increased redness, your wound has increased drainage and your wound pain has increased Follow-up/Referrals: Vince Vernon DO [Primary Care Provider] - (Follow up within 1-2 weeks) Diet: Heart Healthy Addtl Attending Provider Instructions: Please finish out 9 more days of the two oral antibiotics called cefdinir and doxycycline. You should be wearing the post-op surgical shoe with any weight bearing. It is important that you not pick at the wound or leave the dressing off unless showering. Follow up with Dr. Noriega within 1 week for suture removal. You had a blood clot develop around your central line catheter. The catheter was removed and you should remain on Xarelto as a blood thinner for 3 months to prevent this clot from getting bigger and traveling to the heart/lungs where it can become fatal. 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 You can take immediate release oxycodone for breakthrough pain as needed. You were also restarted on nortriptyline which is an excellent medication for nerve pain which is what you have. Opioids are not great drugs for nerve pain, but you do report improvement with taking opioids for your nerve pain so these can be continued for now. Your Lyrica was also increased to 100mg three times a day which can help with nerve pain. Your Vitamin B12 levels are also low which can contribute to nerve pain. Please continue on oral B12 pills each day. Your sertraline was increased to 50mg daily for depression/anxiety. Your PCP can increase this dose further as an outpatient if needed. Finally, you were diagnosed with C. diff diarrhea from taking antibiotics. Please finish out 9 more days of an oral antibiotic called Vancomycin for this. Pending Studies at Discharge: No Stand-Alone Forms: My [facility], Smoking Cessation Medications and DC Order Prescriptions: New doxycycline hyclate 100 mg Capsule 100 mg PO BID Qty: 18 0RF cefdinir 300 mg Capsule 300 mg PO BID Qty: 18 0RF Xarelto 15 mg Tablet 15 mg PO Q12H Qty: 40 0RF Rx Instructions: Take this dose for 20 more days, then take 20mg daily x 2 month nortriptyline 25 mg Capsule 25 mg PO HS Qty: 30 0RF diltiazem HCl 30 mg Tablet 30 mg PO AC Qty: 90 0RF pregabalin [Lyrica] 100 mg Capsule 100 mg PO TID Qty: 60 0RF oxycodone [OxyContin] 20 mg Tablet,Oral Only,Ext.Rel.12 Hr 20 mg PO BID Qty: 60 0RF oxycodone 15 mg tablet 15 mg PO Q6H PRN (Reason: pain) Qty: 30 0RF pantoprazole 40 mg Tablet,Delayed Release (Dr/Ec) 40 mg PO BID Qty: 60 0RF cholecalciferol (vitamin D3) 125 mcg (5,000 unit) Tablet 5,000 unit PO QAM Qty: 30 0RF Rx Instructions: OTC cyanocobalamin (vitamin B-12) 1,000 mcg capsule 1,000 mcg PO DAILY Qty: 30 0RF Rx Instructions: OTC vancomycin [Vancocin] 125 mg capsule 125 mg PO QID Qty: 36 0RF Xarelto 20 mg tablet 20 mg PO PM Qty: 30 0RF Rx Instructions: must administer with evening meal; to START on 07/16/22 Continued metoprolol succinate [Toprol XL] 50 mg tablet extended release 24 hr 50 mg PO QAM ropinirole 2 mg Tablet 4 mg PO HS cyclobenzaprine 10 mg tablet 10 mg PO BID PRN (Reason: Muscle Spasm) lorazepam [Ativan] 1 mg tablet 1 mg PO TID PRN (Reason: Anxiety) zolpidem 10 mg tablet 10 mg PO HS PRN (Reason: Sleep) Rx Instructions: do not take within 3 hours of opiod pain med insulin lispro 100 unit/mL insulin pen 5 unit SUBCUT TIDM Rx Instructions: plus sliding scale ondansetron 8 mg tablet,disintegrating 8 mg translingual TID PRN (Reason: Nausea) clopidogrel 75 mg Tablet 75 mg PO QAM Qty: 30 0RF hydroxyzine HCl 25 mg Tablet 25 mg PO QAM Qty: 90 0RF Rx Instructions: and take 2 tabs at bedtime multivitamin with folic acid [Daily-Werner (with folic acid)] 400 mcg Tablet 1 tab PO QAM Qty: 30 0RF Rx Instructions: OTC Changed sertraline 50 mg Tablet 50 mg PO HS Qty: 30 0RF Rx Instructions: x 6 days then increase to 50mg at bedtime insulin glargine [Lantus Solostar U-100 Insulin] 100 unit/mL (3 mL) insulin pen 10 unit SUBCUT HS Qty: 15 0RF Discontinued pregabalin 75 mg capsule 75 mg PO BID aspirin [Melissa Low Dose Aspirin] 81 mg Tablet,Delayed Release (Dr/Ec) 81 mg PO DAILY Qty: 30 0RF oxycodone-acetaminophen [Percocet] 10-325 mg tablet 1 tab PO Q4H PRN (Reason: pain) Qty: 30 0RF Discharge Orders: Discharge Order (Routine); Ordered 06/27/22 Ordered By: Sangeeta Ko Admission Data Admit Date/Time: 06/06/22 23:34 Attending Provider: Sangeeta Ko Admit Provider: Jayson Staton Primary Care Provider: Vince Vernon Other Providers: [facility],Home Healthcare ; Jayson Staton ; Lavon Monet ; Mathew Noriega ; Deena Sandoval ; Davon Good ; Diann Campbell ; Herbie Stallings ; Roxy Montesinos ; Betzaida Stallings ; Almita Acevedo ; Antoinette Barth ; Ana Kay ; Hal Cardenas ; Mona Leslie Coding Level of Care Code D/C DAY MANAGEMENT >30 MINS Diagnoses Ulcer of left great toe due to diabetes mellitus E11.621; L97.529 Internal jugular (IJ) vein thromboembolism, acute I82.C19 Acute leg pain M79.606 Cellulitis of left foot L03.116 Diabetes mellitus type 2, uncontrolled E11.65 Nausea R11.0 MRSA (methicillin resistant staph aureus) culture positive Z22.322 PAD (peripheral artery disease) I73.9 Anxiety F41.9 Depression F32.9 Diabetic peripheral neuropathy E11.42 Chronic pain syndrome G89.4 Poor venous access I87.8 B12 deficiency E53.8 Shoulder pain M25.519 Vitamin D deficiency E55.9 Anemia D64.9 Insomnia G47.00 Diarrhea R19.7
[2022-06-27] MEDS ORDERED: NORTRIPTYLINE HCL 25 MG CAP PO SCH (21:00)
[2022-06-27] MEDS ORDERED: DOXYCYCLINE HYCLATE 100 MG CAP PO SCH (21:00)
[2022-06-27] MEDS ORDERED: CEFDINIR 300 MG CAP PO SCH (21:00)
== END 2022-06-27 13:50 | disposition home health service (06) | DRG 617 ==
LOC: ED 16:39 → SUATTDRO 23:34 → 2E 23:34 → 3E 06-16 15:43

== ENCOUNTER 2022-10-17 12:54 | Inpatient (IN) ==
[2022-10-17] MEDS ORDERED: SODIUM CHLORIDE 0.9% 1000ML 1,000 ML IV ONE (13:21)
[2022-10-17] MEDS ORDERED: PROMETHAZINE 12.5 MG/50.5 ML BAG IV STA (13:21)
--- NOTE | 2022-10-17 13:41 | Emergency Department Note ---
Impression & Plan Axillary hidradenitis suppurativa, Vomiting, Headache, Constipation ED Provider Note NAME: EILEEN ESCOBAR AGE: 57 SEX: F : 1965 ARRIVES VIA: Walk-In INFORMANT: Patient, ED PROVIDER(S): Julito Garcia DO CHIEF COMPLAINT: Vomiting HPI: The patient is a 57-year-old female who presented to the emergency department from her primary care physician's office for multiple complaints. The patient describes headache chest pain nausea vomiting and swelling under her right axillary region. The patient states that she was seen by her family d ashvin and sent to the emergency department immediately for further evaluation as well as possible surgical evaluation. ROS: See above HPI for pertinent positives & negatives. A total of 10 systems reviewed and were otherwise negative. PAST MEDICAL HISTORY: See Below PAST SURGICAL HISTORY: See Below FAMILY HISTORY: See Below SOCIAL HISTORY: See Below HOME MEDICATIONS: See Below ALLERGIES: See Below VITALS: See Below PHYSICAL EXAMINATION: GENERAL: Patient is awake alert in no acute distress patient is resting comfortably and showing no signs of anxiety EYES: The conjunctivae are clear. The pupils are round and reactive. EARS, NOSE, MOUTH AND THROAT: The nose is without any evidence of any deformity. NECK: The neck is nontender and supple. RESPIRATORY: Normal respiratory effort is noted there is no evidence of wheezing rhonchi or rales CARDIOVASCULAR: Regular rate and rhythm noted there no murmurs rubs or gallops normal S1 normal S2. GASTROINTESTINAL: The abdomen is soft and nondistended. There is diffuse tenderness to palpation but no guarding rigidity. MUSCULOSKELETAL/EXTREMITIES: Right lower extremity amputation was noted. SKIN: There is no obvious evidence of any rash. There are no petechiae, pallor or cyanosis noted. There is swelling and nodularity to the right axillary region. There is mild erythema noted. NEUROLOGIC: Patient is awake alert and oriented x3. MEDICAL DECISION MAKING: The patient is a 57-year-old female who presented to the emergency department with multiple complaints including nausea vomiting diarrhea headache and infection under her armpit. The patient was sent to the emergency department specifically by her primary care physician for further evaluation as well as possible surgical evaluation of the abscess under her armpit. She has been on antibiotics without relief of her symptoms. I discussed the patient's laboratory and radiographic studies with her. She was treated with IV fluids IV pain medication IV antiemetics and IV antibiotics. I asked her to be evaluated by the physician photographer's assistant, Wei Allred PA-C for possible incision and drainage however the patient is refusing to have this done at the bedside at this time we will reach out to general surgery to see if they are available to help us with this patient's care. Triage Nursing notes reviewed. Prior medical records reviewed Vital Signs: reviewed and remarkable for no significant abnormalities Differential diagnosis: Gastroenteritis, food borne illness, infections, appendicitis, diverticulitis, i nflammatory bowel disease, obstruction, GI bleed, biliary pathology, volvulus, as well as other pathologies. ER treatment provided: See below Diagnostics interpreted by me: ECG: EKG was obtained in the emergency department. My interpretation is normal sinus rhythm at 99 bpm. There is no ectopy. There is no acute ST segment abnormalities noted. This was compared to a tracing from October 02, 2022. No changes were noted Cardiac Monitoring: An order was placed for continuous cardiac monitoring. The monitor shows a rate of 110 bpm with sinus tachycardia Laboratory studies: As stated above and show below. Imaging studies: See below. Radiographic imaging was reviewed by myself Consultation(s): Dr Metzger was consulted about the patient Dr. Montejo was consulted on the patient. He will follow along and recommends internal medicine admit the patient for medical management and then they will determine further surgical management as an inpatient. Dr. Moss was notified about the patient. He will evaluate the patient in the emergency department for further management and disposition. Past Med/Surg History Medical History Abdominal pain Acidosis, lactic Acute dehydration 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 No issues per anesthesia postop progress note. Anemia Benzodiazepine dependence Benzodiazepine withdrawal CAD (coronary artery disease) Cellulitis Chronic back pain Chronic pain syndrome Costochondritis COVID-19 Depression Diabetes mellitus type 2, uncontrolled Diabetic neuropathy Diabetic peripheral neuropathy Diastolic CHF DM2 (diabetes mellitus, type 2) IDDM, A1c 07/2021-11% Esophagitis determined by endoscopy Gastritis Gastroenteritis Gastroparesis GIB (gastrointestinal bleeding) History of amputation of great toe History of tobacco use HTN (hypertension) Hyperlipidemia Hypertriglyceridemia Hypomagnesemia Hyponatremia Infection of left great toe due to methicillin resistant Staphylococcus aureus (MRSA) Insomnia Insulin dependent diabetes mellitus Iron deficiency anemia Nonobstructive atherosclerosis of coronary artery Numbness of lower extremity Opiate abuse, continuous Opiate dependence Opioid dependence Osteomyelitis of great toe of left foot Peripheral neuropathy Restless leg syndrome Right second toe ulcer Seizures Sepsis Shortness of breath Surgical History History of esophagogastroduodenoscopy (EGD) History of lumbar surgery History of right below knee amputation (12/22/21) Right Below Knee Amputation(Right) - Davon Good MD, FACS Family History Mother , age 63 Myocardial infarction Father , age 68 or 69 Myocardial infarction Brother S/P CABG (coronary artery bypass graft) Sister Myocardial infarction x 3; she is 57yo Social History Smoking Status: Current every day smoker Tobacco Type: Cigarettes packs per day: 0.5; Cigarettes Per Day: 20; Second Hand Exposure: No; Hx Alcohol Use: No Hx Substance Use: Yes Prescribed Medications: Marijuana Substance Use Type Other:: medical marijuana Preferred Language: Mauritanian Communication Ability: Effective Visual Impairment: No Limitations Hearing Ability: Normal Outside Sales Associate Required: No Beliefs That Will Affect Care: None marital status: Current Living Situation: Spouse current occupational status: unemployed 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 other: raising a grandchild as well; lives in [place] Feels Safe at Home: Yes during the past year weight has: remained stable Assistive Devices: Prosthesis, Walker and Wheelchair Allergies Allergies Allergy/AdvReac Type Severity Reaction Status Date / Time morphine Allergy Severe blisters Verified 10/17/22 16:49 in mouth Sulfa (Sulfonamide Allergy Severe rash/swelli Verified 10/17/22 16:49 Antibiotics) ng amoxicillin [From Augmentin] Allergy Intermediate itching/power Verified 10/17/22 16:49 h ceftriaxone [From Rocephin] Allergy Intermediate Hives Verified 10/17/22 16:49 clavulanic acid Allergy Intermediate itching/power Verified 10/17/22 16:49 [From Augmentin] h erythromycin base Allergy Intermediate Hives Verified 10/17/22 16:49 iron [From Venofer] Allergy Intermediate Hypertensio Verified 10/17/22 16:49 n vancomycin Allergy Intermediate YULIYA Verified 10/17/22 16:49 SYNDROME---CAN TAKE IF VERY SLOW DRIP. dermabond AdvReac Intermediate excoriates Uncoded 10/17/22 16:49 skin Home Meds Home Medications Medication Instructions Recorded Confirmed ropinirole 2 mg tablet 4 mg PO HS 10/19/20 10/17/22 metoprolol succinate 50 mg 50 mg PO QAM 03/05/21 10/17/22 tablet,extended release 24 hr (Toprol XL) lorazepam 1 mg tablet (Ativan) 1 mg PO TID PRN Anxiety 11/04/21 10/17/22 cyclobenzaprine 10 mg tablet 10 mg PO TID 11/24/21 10/17/22 insulin lispro 100 unit/mL 5 unit subcut TIDM 03/08/22 10/17/22 subcutaneous pen zolpidem 10 mg tablet 10 mg PO HS PRN Sleep 03/08/22 10/17/22 oxycodone-acetaminophen 5 mg-325 2 tab PO Q4H PRN Pain 10/02/22 10/17/22 mg tablet insulin glargine 100 unit/mL (3 40 unit subcut HS 10/17/22 10/17/22 mL) subcutaneous pen (Lantus Solostar U-100 Insulin) Previous Rx's Medication Instructions Recorded sertraline 50 mg tablet 50 mg PO HS #30 tabs 06/27/22 clindamycin HCl 150 mg capsule 150 mg PO Q6H 10 days #40 caps 10/17/22 ondansetron HCl 4 mg tablet 4 mg PO Q8H PRN nausea and 10/17/22 vomiting #20 tabs oxycodone 5 mg tablet 5 mg PO Q6H PRN pain #20 tabs 10/17/22 Results & Data (ED) Vital Signs Vital Signs - 24 hr 10/17/22 13:08 10/17/22 13:17 10/17/22 13:27 Temperature 36.4 C L Temperature Source Temporal Artery Scan Pulse Rate 109 H 97 H Pulse Rate [Right Apical] 107 H Pulse Rhythm Regular Pulse Rhythm [Right Apical] Regular Pulse Strength [Right Apical] Normal Respiratory Rate 18 19 16 Respiratory Effort / Characteristics Non-Labored Non-Labored Spontaneous Respiratory Depth Normal Normal Respiratory Pattern Regular Blood Pressure 185/86 H 186/87 H Blood Pressure Mean 119 120 Blood Pressure Position [Left Arm] Lying Pulse Oximetry 97 96 96 Oxygen Delivery Method Room Air Room Air Sepsis Recent Fever Within 48 Hours No Sepsis New/Unexplained Change in Mental Status N/A Sepsis Action Taken by Nursing No Action Required 10/17/22 13:28 10/17/22 13:43 10/17/22 15:40 Temperature Temperature Source Pulse Rate 99 H 101 H 95 H Pulse Rate [Right Apical] Pulse Rhythm Regular Pulse Rhythm [Right Apical] Pulse Strength [Right Apical] Respiratory Rate 19 16 Respiratory Effort / Characteristics Respiratory Depth Respiratory Pattern Blood Pressure 199/95 H Blood Pressure Mean 129 Blood Pressure Position [Left Arm] Pulse Oximetry 96 94 Oxygen Delivery Method Room Air Room Air Sepsis Recent Fever Within 48 Hours Sepsis New/Unexplained Change in Mental Status Sepsis Action Taken by Nursing 10/17/22 17:09 10/17/22 17:45 Temperature Temperature Source Pulse Rate 110 H 95 H Pulse Rate [Right Apical] Pulse Rhythm Pulse Rhythm [Right Apical] Pulse Strength [Right Apical] Respiratory Rate 17 Respiratory Effort / Characteristics Respiratory Depth Respiratory Pattern Blood Pressure 217/99 H Blood Pressure Mean 138 Blood Pressure Position [Left Arm] Pulse Oximetry 96 Oxygen Delivery Method Room Air Sepsis Recent Fever Within 48 Hours Sepsis New/Unexplained Change in Mental Status Sepsis Action Taken by Jail Medications Current Medication List: was personally reviewed by me Laboratory Data Attestation: I reviewed the patient's lab results. 10/17/22 13:30 10/17/22 13:30 Lab Results 10/17/22 10/17/22 10/17/22 Range/Units 13:30 13:30 13:30 WBC 15.87 H (4.8-10.8) K/ul RBC 5.88 H (4.20-5.40) M/uL Hgb 15.8 (12.0-16.0) g/dl Hct 47.6 H (37.0-47.0) % MCV 81.0 (80.0-100.0) fL MCH 26.9 (25.0-34.0) pg MCHC 33.2 (32.0-36.0) g/dL RDW Std Deviation 41.9 (36.4-46.3) fL RDW Coeff of [place] 14.3 (11.5-14.5) % Plt Count 342 (130-400) K/uL MPV 9.7 (9.4-12.4) fL Immature Gran % (Auto) 0.4 % Neut % (Auto) 73.6 % Lymph % (Auto) 19.4 % [place] % (Auto) 4.7 % Eos % (Auto) 1.4 % Baso % (Auto) 0.5 % Neut # (Auto) 11.67 H (1.40-6.50) K/uL Lymph # (Auto) 3.08 (1.2-3.4) K/uL [place] # (Auto) 0.75 H (0.11-0.59) K/uL Eos # (Auto) 0.23 (0-0.50) K/uL Baso # (Auto) 0.08 (0-0.2) K/uL Immature Gran # (Auto) 0.06 (0.01-0.20) K/uL ESR 49 H (0-30) mm/hr PT 10.1 (9.0-12.0) Seconds INR 0.9 (0.9-1.1) APTT 22.8 (21.0-31.0) Seconds PTT Ratio 0.8 Sodium (136-145) mmol/L Potassium (3.5-5.1) mmol/L Chloride (98-107) mmol/L Carbon Dioxide (21-32) mmol/L Anion Gap (3-11) BUN (6-23) mg/dl Creatinine (0.6-1.2) mg/dl Est Cr Clr Drug Dosing ml/min Est GFR ( Amer) ml/min Est GFR (Non-Af Amer) ml/min BUN/Creatinine Ratio (10-20) Glucose (70-99(Fasting)) mg/dl Calcium (8.5-10.1) mg/dl Total Bilirubin (0.2-1.0) mg/dl AST (13-39) U/L ALT (7-52) U/L Alkaline Phosphatase (34-104) U/L Troponin I High Sens (0-14) pg/ml C-Reactive Protein (0-0.5) mg/dl Total Protein (6.0-8.3) gm/dl Albumin (3.4-5.0) gm/dl Globulin (2.5-4.0) gm/dl Albumin/Globulin Ratio (0.9-2) Lipase (11-82) U/L Procalcitonin (0-0.5) ng/ml Urine Color Urine Appearance (Clear) Urine pH (4.5-7.5) Ur Specific [place] (1.000-1.030) Urine Protein (Negative) Urine Glucose (UA) (Negative) Urine Ketones (Negative) Urine Blood (Negative) Urine Nitrite (Negative) Urine Bilirubin (Negative) Urine Urobilinogen (Negative) Ur Leukocyte Esterase (Negative) Urine WBC (Auto) (0-5) /hpf Urine RBC (Auto) (0-4) /hpf U Hyaline Cast (Auto) (0-5) /lpf U Epithel Cells (Auto) (0-5) /lpf Urine Bacteria (Auto) (Negative) 10/17/22 10/17/22 10/17/22 Range/Units 13:30 13:30 16:05 WBC (4.8-10.8) K/ul RBC (4.20-5.40) M/uL Hgb (12.0-16.0) g/dl Hct (37.0-47.0) % MCV (80.0-100.0) fL MCH (25.0-34.0) pg MCHC (32.0-36.0) g/dL RDW Std Deviation (36.4-46.3) fL RDW Coeff of [place] (11.5-14.5) % Plt Count (130-400) K/uL MPV (9.4-12.4) fL Immature Gran % (Auto) % Neut % (Auto) % Lymph % (Auto) % [place] % (Auto) % Eos % (Auto) % Baso % (Auto) % Neut # (Auto) (1.40-6.50) K/uL Lymph # (Auto) (1.2-3.4) K/uL [place] # (Auto) (0.11-0.59) K/uL Eos # (Auto) (0-0.50) K/uL Baso # (Auto) (0-0.2) K/uL Immature Gran # (Auto) (0.01-0.20) K/uL ESR (0-30) mm/hr PT (9.0-12.0) Seconds INR (0.9-1.1) APTT (21.0-31.0) Seconds PTT Ratio Sodium 135 L (136-145) mmol/L Potassium 4.5 (3.5-5.1) mmol/L Chloride 97 L (98-107) mmol/L Carbon Dioxide 29 (21-32) mmol/L Anion Gap 9 (3-11) BUN 9 (6-23) mg/dl Creatinine 0.43 L (0.6-1.2) mg/dl Est Cr Clr Drug Dosing 133.3 ml/min Est GFR ( Amer) 129.9 ml/min Est GFR (Non-Af Amer) 112.1 ml/min BUN/Creatinine Ratio 20.9 H (10-20) Glucose 231 H (70-99(Fasting)) mg/dl Calcium 10.2 H (8.5-10.1) mg/dl Total Bilirubin 0.6 (0.2-1.0) mg/dl AST 12 L (13-39) U/L ALT 12 (7-52) U/L Alkaline Phosphatase 100 (34-104) U/L Troponin I High Sens 6.7 (0-14) pg/ml C-Reactive Protein 0.63 H (0-0.5) mg/dl Total Protein 8.5 H (6.0-8.3) gm/dl Albumin 5.0 (3.4-5.0) gm/dl Globulin 3.5 (2.5-4.0) gm/dl Albumin/Globulin Ratio 1.4 (0.9-2) Lipase 3 L (11-82) U/L Procalcitonin < 0.05 (0-0.5) ng/ml Urine Color Yellow Urine Appearance Clear (Clear) Urine pH 7.5 (4.5-7.5) Ur Specific [place] 1.010 (1.000-1.030) Urine Protein 2+ H (Negative) Urine Glucose (UA) Trace H (Negative) Urine Ketones Negative (Negative) Urine Blood Negative (Negative) Urine Nitrite Negative (Negative) Urine Bilirubin Negative (Negative) Urine Urobilinogen Negative (Negative) Ur Leukocyte Esterase Negative (Negative) Urine WBC (Auto) 1-5 (0-5) /hpf Urine RBC (Auto) 0-4 (0-4) /hpf U Hyaline Cast (Auto) 1-5 (0-5) /lpf U Epithel Cells (Auto) 20-30 H (0-5) /lpf Urine Bacteria (Auto) Negative (Negative) Administered Medications Fentanyl Citrate (Fentanyl Citrate 100 Mcg/2 Ml Vial) 50 mcg IV Q15M PRN PRN Reason: Pain Stop: 10/31/22 13:57 Last Admin: 10/17/22 14:04 Dose: 50 mcg Documented By: ERIC Discontinued Medications Hydromorphone HCl (Hydromorphone Inj 1 Mg/Ml Syringe) 1 mg IV NOW STA Stop: 10/17/22 14:56 Last Admin: 10/17/22 15:05 Dose: 1 mg Documented By: ERIC Sodium Chloride (Nss 1000ml) 1,000 mls @ 999 mls/hr IV .Q1H1M ONE Stop: 10/17/22 14:21 Last Infusion: 10/17/22 16:14 Dose: 0 mls/hr Documented By: Admin: 10/17/22 13:48 Dose: 999 mls/hr Documented By: ERIC Promethazine HCl (Phenergan) 12.5 mg in 50.5 mls @ 202 mls/hr IV NOW STA Stop: 10/17/22 13:35 Last Infusion: 10/17/22 14:11 Dose: 0 mls/hr Documented By: Admin: 10/17/22 13:53 Dose: 202 mls/hr Documented By: ERIC Clindamycin Phosphate (Cleocin/D5w) 600 mg in 50 mls @ 100 mls/hr IV NOW ONE Stop: 10/17/22 16:24 Last Admin: 10/17/22 17:12 Dose: 100 mls/hr Documented By: ERIC Imaging Data Attestation: I personally reviewed and interpreted this imaging study as follows: My Impression: CT of the abdomen and pelvis was obtained in the emergency department. My interpretation is no signs of bowel obstruction, no free air, formal report pending. CT of the head was obtained in the emergency department. My interpretation is no intracranial hemorrhage, no mass effect, formal report pending 1 view chest x-ray was obtained in the emergency department. My interpretation is no free air, no definite infiltrate. See formal report. Radiologist's Impression: Abdomen/Pelvis CT 10/17/22 13:21 CT SCAN OF THE ABDOMEN AND PELVIS WITHOUT IV CONTRAST CLINICAL HISTORY: Vomiting COMPARISON STUDY: Abdominal CT dated 03/19/2022. TECHNIQUE: CT scan of the abdomen and pelvis is performed from the lung bases to the proximal femora. Images are reviewed in the axial, sagittal, and coronal planes. IV contrast was not administered for this examination as per the referring clinician. Note that the examination was performed in significantly suboptimal fashion without oral and IV contrast. A dose lowering technique was utilized adhering to the principles of ALARA. CT DOSE: 625.40 mGycm FINDINGS: Lung bases: The heart is top normal in size noting a small pericardial effusion. The coronary arteries are densely calcified. The lung bases are clear noting bibasilar scarring/atelectasis. There is a small hiatal hernia. Liver: The unenhanced liver is enlarged, measuring 21.2 cm in length. The liver is otherwise normal in contour and attenuation. There is no intrahepatic biliary ductal dilatation. Gallbladder: Surgically absent noting clips in the gallbladder fossa. Spleen: Normal in size and attenuation. Pancreas: The unenhanced pancreas is grossly unremarkable. Adrenal glands: Unremarkable. Kidneys: The unenhanced kidneys are normal in size and without hydronephrosis. There is a 3 mm nonobstructing calculus on the right. No left renal calculi are identified and there is no ureteral stone. An 11 mm cyst is again seen in the right upper pole. Abdominal vasculature: The abdominal aorta is normal in course and caliber noting moderate to advanced atherosclerotic calcification. Bowel: There is moderate colonic fecal retention. No bowel obstruction is seen. There is underdistention of the right colon. There is a tiny duodenal diverticulum. The appendix is not identified and reported surgically absent. Peritoneum: There is no intraperitoneal free air or abdominal ascites. Lymphadenopathy: None. Pelvic viscera: The bladder is distended but otherwise normal in appearance. The uterus is surgically absent. No adnexal lesion is seen. Skeletal structures: The skeletal structures are osteopenic. Postoperative and spondylotic change is noted in the lumbar spine. No lytic or blastic lesions are seen. IMPRESSION: 1. No acute infectious or inflammatory findings are identified in the abdomen or pelvis. 2. There is a nonobstructing right renal calculus. 3. Moderate colonic fecal retention. 4. Additional findings as above. ACT 112: Negative or not required by law. Electronically signed by: Finn Bradshaw M.D. 10/17/2022 3:[address] 10/17/22 13:21 CT head/brain wo con CLINICAL HISTORY: HARPER Technique: Contiguous axial CT images of the head were acquired from the base of the skull to the vertex without intravenous contrast administration. Images were viewed in brain, subdural and bone windows. Automated dose lowering techniques and/or adjustment according to patient size were utilized for this exam. Comparison: Comparison is made to CT head 12/30/2021 Findings: The ventricles, basal cisterns, and cerebral sulci are normal. There is no acute intracranial hemorrhage or evidence of acute territorial infarction. Neither mass effect, shift of the midline structures, nor abnormal extra-axial fluid collections are shown. Imaged portions of the paranasal sinuses and mastoid air cells are clear. The orbits appear normal. There are no acute fractures of the calvaria or scalp swelling. Impression: No acute intracranial hemorrhage, no evidence of acute territorial infarction or other acute intracranial disease process. ACT 112: Negative or not required by law. Electronically signed by: Neil Mendieta M.D. 10/17/2022 2:54 PM Chest X-Ray 10/17/22 13:23 SINGLE VIEW CHEST CLINICAL HISTORY: Vomiting FINDINGS: An AP, portable, upright chest radiograph is compared to chest x-ray and chest CT dated 10/02/2022. The cardiomediastinal silhouette is unremarkable. Chronic interstitial thickening is similar to previous. There is mild bibasilar scarring/atelectasis. The lungs and pleural spaces are otherwise clear. No pneumothorax is seen. The skeletal structures are osteopenic. The bony thorax is grossly intact. IMPRESSION: No active disease in the chest. ACT 112: Negative or not required by law. Electronically signed by: Finn Bradshaw M.D. 10/17/2022 3:07 PM Vascular Ultrasound 10/17/22 13:41 US extremity non-vascular ltd HISTORY: 57 years-old Female right axilarry swelling, possible abscess acute pain and swelling of the right axilla COMPARISON: None TECHNIQUE: Multiple real-time sonographic images of the right axilla were obtained assessing grayscale appearance and color flow FINDINGS: There are 4 complex cutaneous/superficial subcutaneous hypoechoic lesion/colle ctions with peripheral hypervascularity, the largest measuring 2.5 x 1.9 x 0.8 cm. The remaining foci are subcentimeter. IMPRESSION: Cutaneous/subcutaneous complex collections of the right axilla measuring up to 2.5 cm are suspicious for small abscesses. Correlate clinically to exclude hydradenitis suppurativa. ACT 112: Negative or not required by law. The above report was generated using voice recognition software. It may contain grammatical, syntax or spelling errors. Electronically signed by: Puneet Howard M.D. 10/17/2022 3:37 PM Discharge Plan Visit Data Chief Complaint: Vomiting Stated Complaint: REF BY DOC,PAIN (GENERALIZED),VOMITING,DEHYDRATION ED Provider: Julito Garcia Discharge Problem: Axillary hidradenitis suppurativa, Vomiting, Headache, Constipation Patient Disposition: Being Evaluated by Hospitalist Condition: Good Discharge Instructions Krames/Other Patient Handouts: ED Vomiting (Adult) Activity Restrictions/Additional Instructions: Continue all medications as prescribed. Rest and avoiding strenuous activity. Continue to drink plenty clear liquids. Call your family doctor to schedule follow-up appointment within the next few days. Forms Stand Alone Forms: My [facility] Prescriptions Prescriptions: New clindamycin HCl 150 mg capsule 150 mg PO Q6H 10 Days Qty: 40 0RF ondansetron HCl 4 mg tablet 4 mg PO Q8H PRN (Reason: nausea and vomiting) Qty: 20 0RF oxycodone 5 mg tablet 5 mg PO Q6H PRN (Reason: pain) Qty: 20 0RF No Action metoprolol succinate [Toprol XL] 50 mg tablet extended release 24 hr 50 mg PO QAM sertraline 50 mg Tablet 50 mg PO HS Qty: 30 0RF Rx Instructions: x 6 days then increase to 50mg at bedtime oxycodone-acetaminophen 5-325 mg tablet 2 tab PO Q4H PRN (Reason: Pain) ropinirole 2 mg Tablet 4 mg PO HS cyclobenzaprine 10 mg tablet 10 mg PO TID lorazepam [Ativan] 1 mg tablet 1 mg PO TID PRN (Reason: Anxiety) zolpidem 10 mg tablet 10 mg PO HS PRN (Reason: Sleep) Rx Instructions: do not take within 3 hours of opiod pain med insulin lispro 100 unit/mL insulin pen 5 unit SUBCUT TIDM Rx Instructions: plus sliding scale insulin glargine [Lantus Solostar U-100 Insulin] 100 unit/mL (3 mL) insulin pen 40 unit SUBCUT HS Referrals Referrals: Vince Vernon DO [Primary Care Provider] -
[2022-10-17] MEDS ORDERED: fentaNYL citrate PF 100 MCG/2 ML VIAL IV PRN (13:58)
[2022-10-17 14:09] LABS: Basophils # (auto) 0.08 K/uL (0-0.2); Basophils % (auto) 0.5 %; Eosinophils # (auto) 0.23 K/uL (0-0.50); Eosinophils % (auto) 1.4 %; Hematocrit (blood only) 47.6 % (37.0-47.0); Hemoglobin 15.8 g/dl (12.0-16.0); Immature Granulocytes # (auto) 0.06 K/uL (0.01-0.20); Immature Granulocytes % (auto) 0.4 %; Lymphocytes # (auto) 3.08 K/uL (1.2-3.4); Lymphocytes % (auto) 19.4 %; Mean Corpuscular Hemoglobin 26.9 pg (25.0-34.0); Mean Corpuscular Hgb Conc 33.2 g/dL (32.0-36.0); Mean Platelet Volume 9.7 fL (9.4-12.4); Monocytes # (auto) 0.75 K/uL (0.11-0.59); Monocytes % (auto) 4.7 %; Neutrophils # (auto) 11.67 K/uL (1.40-6.50); Neutrophils % (auto) 73.6 %; Platelet Count 342 K/uL (130-400); RDW Coefficient of Variation 14.3 % (11.5-14.5); RDW Standard Deviation 41.9 fL (36.4-46.3); Red Blood Count 5.88 M/uL (4.20-5.40); White Blood Count 15.87 K/ul (4.8-10.8)
[2022-10-17 14:27] LABS: Albumin Globulin Ratio 1.4 (0.9-2); BUN Creatinine Ratio 20.9 (10-20); Bilirubin,Total 0.6 mg/dl (0.2-1.0); C Reactive Protein 0.63 mg/dl (0-0.5); Calcium 10.2 mg/dl (8.5-10.1); Creatinine Clr Calc Pharmacy 133.3 ml/min; Est GFR (African American) 129.9 ml/min; Est GFR (Non-African American) 112.1 ml/min; Globulin 3.5 gm/dl (2.5-4.0); Potassium 4.5 mmol/L (3.5-5.1); Total Protein 8.5 gm/dl (6.0-8.3)
[2022-10-17 14:32] LABS: Troponin I High Sensitivity 6.7 pg/ml (0-14)
[2022-10-17 14:45] LABS: INR 0.9 (0.9-1.1); Partial Thromboplastin Ratio 0.8; Partial Thromboplastin Time 22.8 Seconds (21.0-31.0); Prothrombin Time 10.1 Seconds (9.0-12.0)
[2022-10-17] MEDS ORDERED: HYDROmorphone INJ 1 MG/ML SYRINGE IV STA (14:55)
--- NOTE | 2022-10-17 14:55 | CT Scan Report ---
CT head/brain wo con CLINICAL HISTORY: HARPER Technique: Contiguous axial CT images of the head were acquired from the base of the skull to the pedro primo without intravenous contrast administration. Images were viewed in brain, subdural and bone [facility]. Automated dose lowering techniques and/or adjustment according to patient size were utilized for this exam. Comparison: Comparison is made to CT head 12/30/2021 Findings: The ventricles, basal cisterns, and cerebral sulci are normal. There is no acute intracranial hemorrh age or evidence of acute territorial infarction. Neither mass effect, shift of the midline structures , nor abnormal extra-axial fluid collections are shown. Imaged portions of the paranasal sinuses and mastoid air cells are clear. The orbits appear normal. There are no acute fractures of the calvaria or scalp swelling. Impression: No acute intracranial hemorrhage, no evidence of acute territorial infarction or other acute intracra nial disease process. ACT 112: Negative or not required by law. Electronically signed by: Neil Mendieta M.D. 10/17/2022 2:54 PM
--- NOTE | 2022-10-17 15:02 | CT Scan Report ---
CT SCAN OF THE ABDOMEN AND PELVIS WITHOUT IV CONTRAST CLINICAL HISTORY: Vomiting COMPARISON STUDY: Abdominal CT dated 03/19/2022. TECHNIQUE: CT scan of the abdomen and pelvis is performed from the lung bases to the proximal femora. Images are reviewed in the axial, sagittal, and coronal planes. IV contrast was not administered for this examination as per the referring clinician. Note that the examination was performed in signific antly suboptimal fashion without oral and IV contrast. A dose lowering technique was utilized adherin g to the principles of ALARA. CT DOSE: 625.40 mGycm FINDINGS: Lung bases: The heart is top normal in size noting a small pericardial effusion. The coronary arterie s are densely calcified. The lung bases are clear noting bibasilar scarring/atelectasis. There is a s mall hiatal hernia. Liver: The unenhanced liver is enlarged, measuring 21.2 cm in length. The liver is otherwise normal i n contour and attenuation. There is no intrahepatic biliary ductal dilatation. Gallbladder: Surgically absent noting clips in the gallbladder fossa. Spleen: Normal in size and attenuation. Pancreas: The unenhanced pancreas is grossly unremarkable. Adrenal glands: Unremarkable. Kidneys: The unenhanced kidneys are normal in size and without hydronephrosis. There is a 3 mm nonobs tructing calculus on the right. No left renal calculi are identified and there is no ureteral stone. An 11 mm cyst is again seen in the right upper pole. Abdominal vasculature: The abdominal aorta is normal in course and caliber noting moderate to advance d atherosclerotic calcification. Bowel: There is moderate colonic fecal retention. No bowel obstruction is seen. There is underdistent ion of the right colon. There is a tiny duodenal diverticulum. The appendix is not identified and re ported surgically absent. Peritoneum: There is no intraperitoneal free air or abdominal ascites. Lymphadenopathy: None. Pelvic viscera: The bladder is distended but otherwise normal in appearance. The uterus is surgically absent. No adnexal lesion is seen. Skeletal structures: The skeletal structures are osteopenic. Postoperative and spondylotic change is noted in the lumbar spine. No lytic or blastic lesions are seen. IMPRESSION: 1. No acute infectious or inflammatory findings are identified in the abdomen or pelvis. 2. There is a nonobstructing right renal calculus. 3. Moderate colonic fecal retention. 4. Additional findings as above. ACT 112: Negative or not required by law. Electronically signed by: Finn Bradshaw M.D. 10/17/2022 3:00 PM
--- NOTE | 2022-10-17 15:08 | XRay Report ---
SINGLE VIEW CHEST CLINICAL HISTORY: Vomiting FINDINGS: An AP, portable, upright chest radiograph is compared to chest x-ray and chest CT dated 09/14. The cardiomediastinal silhouette is unremarkable. Chronic interstitial thickening is similar to previous. There is mild bibasilar scarring/atelectasis. The lungs and pleural spaces are otherwise clear. No pneumothorax is seen. The skeletal structures are osteopenic. The bony thorax is grossly i ntact. IMPRESSION: No active disease in the chest. ACT 112: Negative or not required by law. Electronically signed by: Finn Bradshaw M.D. 10/17/2022 3:07 PM
--- NOTE | 2022-10-17 15:38 | Ultrasound Report ---
US extremity non-vascular ltd HISTORY: 57 years-old Female right axilarry swelling, possible abscess acute pain and swelling of th e right axilla COMPARISON: None TECHNIQUE: Multiple real-time sonographic images of the right axilla were obtained assessing grayscal e appearance and color flow FINDINGS: There are 4 complex cutaneous/superficial subcutaneous hypoechoic lesion/collections with peripheral hypervascularity, the largest measuring 2.5 x 1.9 x 0.8 cm. The remaining foci are subcentimeter. IMPRESSION: Cutaneous/subcutaneous complex collections of the right axilla measuring up to 2.5 cm are suspicious for small abscesses. Correlate clinically to exclude hydradenitis suppurativa. ACT 112: Negative or not required by law. The above report was generated using voice recognition software. It may contain grammatical, syntax o r spelling errors. Electronically signed by: Puneet Howard M.D. 10/17/2022 3:37 PM
[2022-10-17] MEDS ORDERED: CLINDAMYCIN/D5W 600 MG/50 ML BAG IV ONE (15:55)
[2022-10-17 16:23] LABS: Appearance Urine Clear (Clear); Bacteria Urine Automated Negative (Negative); Bilirubin Urine Negative (Negative); Blood Urine Negative (Negative); Color Urine Yellow; Epithelial Cell Urine Auto 20-30 /lpf (0-5); Glucose Urine UA Trace (Negative); Ketones Urine Negative (Negative); Leukocyte Esterase Urine Negative (Negative); Nitrite Urine Negative (Negative); RBC Urine Automated 0-4 /hpf (0-4); Urobilinogen Urine Negative (Negative); pH Urine 7.5 (4.5-7.5)
[2022-10-17 16:40] LABS: Protein Urine 2+ (Negative)
--- NOTE | 2022-10-17 18:12 | Emergency Department Note ---
ED Visit Note Patient was seen and evaluated by Dr. Garcia. I was present to evaluate the patient for possible I&D of the right axillary abscesses. On examination she does have 4 or 5 nodular-like areas of enlargement within the right axilla concerning for abscesses. Ultrasound confirms. I did discuss benefit versus risk of I&D at bedside with the patient. Patient is concerned about the amount of discomfort to have these drained at bedside. At this time I found it reasonable to discuss this with general surgery. I spoke to Dr. Montejo and at this time are in agreement with medical admission, IV antibiotics and surgical consultation for further evaluation and management. Please refer to further documentation regarding her stay. .
--- NOTE | 2022-10-17 18:26 | History & Physical Report ---
Date of Service October 17, 2022 Assessment & Plan (1) Abscess of right axilla: (2) Vomiting: (3) Diarrhea: (4) Insomnia: (5) Amputation of left great toe: (6) Diabetes mellitus type 2, uncontrolled: (7) Chronic pain syndrome: (8) Iron deficiency anemia: (9) Gastroparesis: (10) History of tobacco use: (11) PAD (peripheral artery disease): (12) Emphysema lung: (13) History of amputation of great toe: (14) Diabetic peripheral neuropathy: (15) Depression: (16) Anxiety: Plan Mariana is a 57 F with history of insomnia, internal jugular vein thromboembolism, left great toe amputation, iron deficiency anemia, T2DM, chronic pain syndrome, gastroparesis, esophagitis, prior tobacco use, PAD, prior MRSA infection, anxiety, emphysema, diabetic peripheral neuropathy, depression, coronary artery atherosclerosis, and back pain who presents for evaluation of vomiting and axillary infection. Right Axillary Abscess - Ongoing progression over last month - S/p course of Doxycycline w/o benefit - Now experiencing systemic symptoms (chills/sweats/emesis/diarrhea) - Nodular, erythematous lesions w/ associated abscess localized to R axilla, no acute cellulitis or purulence - Patient with evidence of leukocytosis and elevated ESR/CRP - Evaluated by General Surgery, planned I&D in AM, NPO at midnight - Anticipate wound culture, patient has hx of MRSA - Started on Clindamycin in ER (1st Line for Hydradenitis) - Surgical team requesting transition to Ciprofloxacin and Flagyl, orders placed - Pain Management: Hydromorphone 0.5 mg Q4H PRN, can return to home Percocet once off NPO Vomiting/Diarrhea - Acute, 2 day duration - Received 1L NS in ER - Patient euvolemic on exam - Monitor for ongoing emesis/diarrhea and need for IVF DM2 a/w Gastroparesis and Peripheral Neuropathy - Patient with known hx of DM2 - Managed at home with Lantus 40 HS and Lispro 5 units TIDM - Inpatient adjustment to Lantus 28 HS (30% reduction while NPO) w/ SSI orders S/p Amputation of L Great Toe and R BKA - A/w DM2 and PAD Chronic Conditions: * Anxiety/Depression - continue home Sertraline 50 mg PO HS and Ativan 1 mg PO TID PRN * Emphysema/Ongoing Tobacco Use - no active home management, evidence of wheezing on exam, encouraged smoking cessation * Iron Deficiency Anemia - no active home management, HgB currently wnl * Chronic Pain Syndrome - held home Percocet and Cyclobenzaprine, pain mgmt w/ Dilaudid 0.5 mg IV Q4H, consider restart PRN following NPO * Insomnia - continue home Zolpidem 10 mg PO HS (consider decreased dose to 5 mg, recommended max for females) FEN: Carb Consistent, NPO @ midnight Code status: Full Code DVT ppx: Held for Surgery in AM Isolation: None Dispo:Med/Surg History of Present Illness Chief Complaint: Vomiting, Axilla Infection Primary Care Provider: Vince SummersJerman DO Mariaan Vernon is a 57 F with history of insomnia, internal jugular vein thromboemboli sm, left great toe amputation, iron deficiency anemia, T2DM, chronic pain syndrome, gastroparesis, esophagitis, prior tobacco use, PAD, prior MRSA infection, anxiety, emphysema, diabetic peripheral neuropathy, depression, coronary artery atherosclerosis, and back pain who presents for evaluation of vomiting and axillary infection. Patient notes that 1 month ago she developed pain in her right axilla, at this time, she thought the pain was from a pimple and left it alone. Over the last month, the pain and swelling in her axilla continued to progress. She was evaluated in the ER 10/02 and ultimately was discharged with Doxycycline, she completed the course without resolution. Patient presented at the recommendation of her PCP as she has been experiencing worsening emesis and diarrhea for the last two days, ontop of the worsening pain in her axilla. She presented afebrile, but tachycardic and hypertensive. Patient does note a longstanding history of chest pain, dyspnea, abdominal pain (from gastroparesis), headaches, lightheadedness and back pain that wax and wane, she notes no acute changes in regards to these symptoms. She endorses subjective fevers and sweats over the last two days. She has experienced no changes in urination. There has been no blood or mucous in her emesis or diarrhea. ER Course: She was treated with IV fluids IV pain medication, IV antiemetics, and IV antibiotics (Clindamycin). Bedside I&D was recommended, patient declined and requested to be evaluated by General Surgery. Patient was evaluated by general surgery and incision and drainage was planned for tomorrow morning. General surgery requested Ciprofloxacin/Flagyl as antibiotic regimen prior to surgery. Allergies Allergy/AdvReac Type Severity Reaction Status Date / Time morphine Allergy Severe blisters Verified 10/17/22 16:49 in mouth Sulfa (Sulfonamide Allergy Severe rash/swelli Verified 10/17/22 16:49 Antibiotics) ng amoxicillin [From Augmentin] Allergy Intermediate itching/power Verified 10/17/22 16:49 h ceftriaxone [From Rocephin] Allergy Intermediate Hives Verified 10/17/22 16:49 clavulanic acid Allergy Intermediate itching/power Verified 10/17/22 16:49 [From Augmentin] h erythromycin base Allergy Intermediate Hives Verified 10/17/22 16:49 iron [From Venofer] Allergy Intermediate Hypertensio Verified 10/17/22 16:49 n vancomycin Allergy Intermediate YULIYA Verified 10/17/22 16:49 SYNDROME---CAN TAKE IF VERY SLOW DRIP. dermabond AdvReac Intermediate excoriates Uncoded 10/17/22 16:49 skin Home Medications Medication Instructions Recorded Confirmed Type ropinirole 2 mg tablet 4 mg PO HS 10/19/20 10/17/22 History metoprolol succinate 50 mg 50 mg PO QAM 03/05/21 10/17/22 History tablet,extended release 24 hr (Toprol XL) lorazepam 1 mg tablet (Ativan) 1 mg PO TID PRN Anxiety 11/04/21 10/17/22 History cyclobenzaprine 10 mg tablet 10 mg PO TID 11/24/21 10/17/22 History insulin lispro 100 unit/mL 5 unit subcut TIDM 03/08/22 10/17/22 History subcutaneous pen zolpidem 10 mg tablet 10 mg PO HS PRN Sleep 03/08/22 10/17/22 History sertraline 50 mg tablet 50 mg PO HS #30 tabs 06/27/22 10/17/22 Rx oxycodone-acetaminophen 5 mg-325 2 tab PO Q4H PRN Pain 10/02/22 10/17/22 History mg tablet clindamycin HCl 150 mg capsule 150 mg PO Q6H 10 days #40 caps 10/17/22 Rx insulin glargine 100 unit/mL (3 40 unit subcut HS 10/17/22 10/17/22 History mL) subcutaneous pen (Lantus Solostar U-100 Insulin) ondansetron HCl 4 mg tablet 4 mg PO Q8H PRN nausea and 10/17/22 Rx vomiting #20 tabs oxycodone 5 mg tablet 5 mg PO Q6H PRN pain #20 tabs 10/17/22 Rx Past Med/Surg History Medical History Abdominal pain Acidosis, lactic Acute dehydration 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 No issues per anesthesia postop progress note. Anemia Benzodiazepine dependence Benzodiazepine withdrawal CAD (coronary artery disease) Cellulitis Chronic back pain Chronic pain syndrome Costochondritis COVID-19 Depression Diabetes mellitus type 2, uncontrolled Diabetic neuropathy Diabetic peripheral neuropathy Diastolic CHF DM2 (diabetes mellitus, type 2) IDDM, A1c 07/2021-11% Esophagitis determined by endoscopy Gastritis Gastroenteritis Gastroparesis GIB (gastrointestinal bleeding) History of amputation of great toe History of tobacco use HTN (hypertension) Hyperlipidemia Hypertriglyceridemia Hypomagnesemia Hyponatremia Infection of left great toe due to methicillin resistant Staphylococcus aureus (MRSA) Insomnia Insulin dependent diabetes mellitus Iron deficiency anemia Nonobstructive atherosclerosis of coronary artery Numbness of lower extremity Opiate abuse, continuous Opiate dependence Opioid dependence Osteomyelitis of great toe of left foot Peripheral neuropathy Restless leg syndrome Right second toe ulcer Seizures Sepsis Shortness of breath Surgical History History of esophagogastroduodenoscopy (EGD) History of lumbar surgery History of right below knee amputation (12/22/21) Right Below Knee Amputation(Right) - Davon Good MD, FACS Family History Mother , age 63 Myocardial infarction Father , age 68 or 69 Myocardial infarction Brother S/P CABG (coronary artery bypass graft) Sister Myocardial infarction x 3; she is 57yo Social History Smoking Status: Current every day smoker Tobacco Type: Cigarettes packs per day: 0.5; Cigarettes Per Day: 20; Second Hand Exposure: No; Hx Alcohol Use: No Hx Substance Use: Yes Prescribed Medications: Marijuana Substance Use Type Other:: medical marijuana Preferred Language: Malagasy Communication Ability: Effective Visual Impairment: No Limitations Hearing Ability: Normal Chronometer Assembler And Adjuster Required: No Beliefs That Will Affect Care: None marital status: Current Living Situation: Spouse current occupational status: unemployed 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 other: raising a grandchild as well; lives in [place] Feels Safe at Home: Yes during the past year weight has: remained stable Assistive Devices: Prosthesis, Walker and Wheelchair Review of Systems Review of Systems: As per HPI Physical Exam Physical Exam: Gen: NAD, alert, interactive, tearful HEENT: Supple, tender right anterior cervical LAD, no thyromegaly, no JVD Resp:Non-labored, bilateral expiratory wheezing, no rhonchi/rales CV:RRR, normal S1/S2, no M/R/G Abd: Soft, non-distended, mild epigastric TTP, + bowels, no masses Extr:S/p BKA RLE, S/p Amputation of L Great Toe, 2+ dp of LLE w/o edema Skin: Nodular swelling w/ associated erythema in right axilla, 4 superficial non-draining lesions w/ fluctuant mass inferior Results & Data Results & Data ([facility]) Vital Signs (Past 12 Hours) Vital Signs Temp Pulse Pulse Resp BP Pulse Ox O2 Del Method 10/17/22 17:45 95 H 10/17/22 17:09 110 H 17 217/99 H 96 Room Air 10/17/22 15:40 95 H 16 199/95 H 94 Room Air 10/17/22 13:43 101 H 10/17/22 13:28 99 H 19 96 Room Air 10/17/22 13:27 97 H 16 186/87 H 96 Room Air 10/17/22 13:17 107 H 19 96 Room Air 10/17/22 13:08 36.4 C L 109 H 18 185/86 H 97 Diagnostic Findings Abdomen/Pelvis CT 10/17/22 13:21 CT SCAN OF THE ABDOMEN AND PELVIS WITHOUT IV CONTRAST CLINICAL HISTORY: Vomiting COMPARISON STUDY: Abdominal CT dated 03/19/2022. TECHNIQUE: CT scan of the abdomen and pelvis is performed from the lung bases to the proximal femora. Images are reviewed in the axial, sagittal, and coronal planes. IV contrast was not administered for this examination as per the referring clinician. Note that the examination was performed in significantly suboptimal fashion without oral and IV contrast. A dose lowering technique was utilized adhering to the principles of ALARA. CT DOSE: 625.40 mGycm FINDINGS: Lung bases: The heart is top normal in size noting a small pericardial effusion. The coronary arteries are densely calcified. The lung bases are clear noting bibasilar scarring/atelectasis. There is a small hiatal hernia. Liver: The unenhanced liver is enlarged, measuring 21.2 cm in length. The liver is otherwise normal in contour and attenuation. There is no intrahepatic biliary ductal dilatation. Gallbladder: Surgically absent noting clips in the gallbladder fossa. Spleen: Normal in size and attenuation. Pancreas: The unenhanced pancreas is grossly unremarkable. Adrenal glands: Unremarkable. Kidneys: The unenhanced kidneys are normal in size and without hydronephrosis. There is a 3 mm nonobstructing calculus on the right. No left renal calculi are identified and there is no ureteral stone. An 11 mm cyst is again seen in the right upper pole. Abdominal vasculature: The abdominal aorta is normal in course and caliber noting moderate to advanced atherosclerotic calcification. Bowel: There is moderate colonic fecal retention. No bowel obstruction is seen. There is underdistention of the right colon. There is a tiny duodenal diverticulum. The appendix is not identified and reported surgically absent. Peritoneum: There is no intraperitoneal free air or abdominal ascites. Lymphadenopathy: None. Pelvic viscera: The bladder is distended but otherwise normal in appearance. The uterus is surgically absent. No adnexal lesion is seen. Skeletal structures: The skeletal structures are osteopenic. Postoperative and spondylotic change is noted in the lumbar spine. No lytic or blastic lesions are seen. IMPRESSION: 1. No acute infectious or inflammatory findings are identified in the abdomen or pelvis. 2. There is a nonobstructing right renal calculus. 3. Moderate colonic fecal retention. 4. Additional findings as above. ACT 112: Negative or not required by law. Electronically signed by: Finn Bradshaw M.D. 10/17/2022 3:[address] 10/17/22 13:21 CT head/brain wo con CLINICAL HISTORY: HARPER Technique: Contiguous axial CT images of the head were acquired from the base of the skull to the vertex without intravenous contrast administration. Images were viewed in brain, subdural and bone windows. Automated dose lowering techniques and/or adjustment according to patient size were utilized for this exam. Comparison: Comparison is made to CT head 12/30/2021 Findings: The ventricles, basal cisterns, and cerebral sulci are normal. There is no acute intracranial hemorrhage or evidence of acute territorial infarction. Neither mass effect, shift of the midline structures, nor abnormal extra-axial fluid collections are shown. Imaged portions of the paranasal sinuses and mastoid air cells are clear. The orbits appear normal. There are no acute fractures of the calvaria or scalp swelling. Impression: No acute intracranial hemorrhage, no evidence of acute territorial infarction or other acute intracranial disease process. ACT 112: Negative or not required by law. Electronically signed by: Neil Mendieta M.D. 10/17/2022 2:54 PM Chest X-Ray 10/17/22 13:23 SINGLE VIEW CHEST CLINICAL HISTORY: Vomiting FINDINGS: An AP, portable, upright chest radiograph is compared to chest x-ray and chest CT dated 10/02/2022. The cardiomediastinal silhouette is unremarkable. Chronic interstitial thickening is similar to previous. There is mild bibasilar scarring/atelectasis. The lungs and pleural spaces are otherwise clear. No pneumothorax is seen. The skeletal structures are osteopenic. The bony thorax is grossly intact. IMPRESSION: No active disease in the chest. ACT 112: Negative or not required by law. Electronically signed by: Finn Bradshaw M.D. 10/17/2022 3:07 PM Vascular Ultrasound 10/17/22 13:41 US extremity non-vascular ltd HISTORY: 57 years-old Female right axilarry swelling, possible abscess acute pain and swelling of the right axilla COMPARISON: None TECHNIQUE: Multiple real-time sonographic images of the right axilla were obtained assessing grayscale appearance and color flow FINDINGS: There are 4 complex cutaneous/superficial subcutaneous hypoechoic lesion/collections with peripheral hypervascularity, the largest measuring 2.5 x 1.9 x 0.8 cm. The remaining foci are subcentimeter. IMPRESSION: Cutaneous/subcutaneous complex collections of the right axilla measuring up to 2.5 cm are suspicious for small abscesses. Correlate clinically to exclude hydradenitis suppurativa. ACT 112: Negative or not required by law. The above report was generated using voice recognition software. It may contain grammatical, syntax or spelling errors. Electronically signed by: Puneet Howard M.D. 10/17/2022 3:37 PM Code Status & VTE Plan Code Status Full Supervising Physician Co-Signing Physician Notes Patient seen and examined, chart reviewed, case discussed with Janel Blanton, and I agree with the assessment and plan as above except as otherwise noted Labs and images reviewed 57yo F with a history of type II DM, chronic pain syndrome, peripheral vascular disease with right BKA, left hallux amputation, iron deficiency anemia, prior tobacco use, depression, CAD who presented with severe right axillary pain with vomiting and general unwellness. She reports that she has had increasing pain of at least 2 to 3 days of pain in her right armpit, and now has had worsening abdominal upset. Imaging work-up in the ER is suspicious for abscess versus hidradenitis, surgery has been consulted and anticipate incision and drainage. Patient is n.p.o. in anticipation of drainage and pharmoprophylaxis of DVT is held pending surgery. N.p.o., fluids as noted. Pain control with conversion to hydromorphone 0.5 every 4 hours as needed for breakthrough pain, caution history of narcosis. Rescue Narcan on-call if needed. At bedside patient is tachycardic in the setting of pain, right arm patient is with multiple fluctuant lumps but no active drainage. Right armpit is tender to palpation. Right BKA as noted, no acute cellulitis. Resident Activity Tracking Resident Involvement: Resident Care Provided Care Provided: Adult Hospital Medicine (2) Vomiting Nausea presence: with nausea Vomiting type: unspecified Qualified Code(s): R11.2 - Nausea with vomiting, unspecified
--- NOTE | 2022-10-17 18:59 | Surgery Consultation ---
Date of Consultation October 17, 2022 Assessment & Plan (1) Abscess of right axilla: pt is a 57 year-old female who presents to ER with 3 weeks history right axillary infection/abscess. IMP: right axillary abscess plan, internal medicine team will admit pt to hospital for IV antibiotic, control pain, DM diet now, NPO repeat labs in morning, after middle night, I recommend to do incision and drainage right axillary abscess possible multiple incisions, D/W benefits, risks and alternatives of the surgery, the risks- infection, bleeding, recurrence, may need more surgery, scar, pain, pt understood, she agreed with the plan and surgery, she signed informed consent, I answered all questions, Thanks internal medicine team take care this pt. History of Present Illness Reason for Consultation: right axillary abscess Requesting Physician: Julito Alvarez History of Present Illness CHIEF COMPLAINT: Vomiting HPI: The patient is a 57-year-old female who presented to the emergency department from her primary care physician's office for multiple complaints. The patient describes headache chest pain nausea vomiting and swelling under her right axillary region. The patient states that she was seen by her family doctor and sent to the emergency department immediately for further evaluation as well as possible surgical evaluation. I ( Yovani Montejo MD ) got a call for consult right axillary abscess, I reviewed pt' H/P, labs and U/S study with pt, pt presents with 3 weeks, history right axillary pain, pt had right axillary infection , pt is on po antibiotic, the pain is getting worse, pt had U/S study diagnosis- right axillary abscess, pt denies fever, no chest pain, no cough , pt had BKA on right leg last year due to DM, ROS: See above HPI for pertinent positives & negatives. A total of 10 systems reviewed and were otherwise negative. Allergies Allergy/AdvReac Type Severity Reaction Status Date / Time morphine Allergy Severe blisters Verified 10/17/22 16:49 in mouth Sulfa (Sulfonamide Allergy Severe rash/swelli Verified 10/17/22 16:49 Antibiotics) ng amoxicillin [From Augmentin] Allergy Intermediate itching/power Verified 10/17/22 16:49 h ceftriaxone [From Rocephin] Allergy Intermediate Hives Verified 10/17/22 16:49 clavulanic acid Allergy Intermediate itching/power Verified 10/17/22 16:49 [From Augmentin] h erythromycin base Allergy Intermediate Hives Verified 10/17/22 16:49 iron [From Venofer] Allergy Intermediate Hypertensio Verified 10/17/22 16:49 n vancomycin Allergy Intermediate YULIYA Verified 10/17/22 16:49 SYNDROME---CAN TAKE IF VERY SLOW DRIP. dermabond AdvReac Intermediate excoriates Uncoded 10/17/22 16:49 skin Home Medications Medication Instructions Recorded Confirmed Type ropinirole 2 mg tablet 4 mg PO HS 10/19/20 10/17/22 History metoprolol succinate 50 mg 50 mg PO QAM 03/05/21 10/17/22 History tablet,extended release 24 hr (Toprol XL) lorazepam 1 mg tablet (Ativan) 1 mg PO TID PRN Anxiety 11/04/21 10/17/22 History cyclobenzaprine 10 mg tablet 10 mg PO TID 11/24/21 10/17/22 History insulin lispro 100 unit/mL 5 unit subcut TIDM 03/08/22 10/17/22 History subcutaneous pen zolpidem 10 mg tablet 10 mg PO HS PRN Sleep 03/08/22 10/17/22 History sertraline 50 mg tablet 50 mg PO HS #30 tabs 06/27/22 10/17/22 Rx oxycodone-acetaminophen 5 mg-325 2 tab PO Q4H PRN Pain 10/02/22 10/17/22 History mg tablet clindamycin HCl 150 mg capsule 150 mg PO Q6H 10 days #40 caps 10/17/22 Rx insulin glargine 100 unit/mL (3 40 unit subcut HS 10/17/22 10/17/22 History mL) subcutaneous pen (Lantus Solostar U-100 Insulin) ondansetron HCl 4 mg tablet 4 mg PO Q8H PRN nausea and 10/17/22 Rx vomiting #20 tabs oxycodone 5 mg tablet 5 mg PO Q6H PRN pain #20 tabs 10/17/22 Rx Patient History Medical History Abdominal pain Acidosis, lactic Acute dehydration 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 No issues per anesthesia postop progress note. Anemia Benzodiazepine dependence Benzodiazepine withdrawal CAD (coronary artery disease) Cellulitis Chronic back pain Chronic pain syndrome Costochondritis COVID-19 Depression Diabetes mellitus type 2, uncontrolled Diabetic neuropathy Diabetic peripheral neuropathy Diastolic CHF DM2 (diabetes mellitus, type 2) IDDM, A1c 07/2021-11% Esophagitis determined by endoscopy Gastritis Gastroenteritis Gastroparesis GIB (gastrointestinal bleeding) History of amputation of great toe History of tobacco use HTN (hypertension) Hyperlipidemia Hypertriglyceridemia Hypomagnesemia Hyponatremia Infection of left great toe due to methicillin resistant Staphylococcus aureus (MRSA) Insomnia Insulin dependent diabetes mellitus Iron deficiency anemia Nonobstructive atherosclerosis of coronary artery Numbness of lower extremity Opiate abuse, continuous Opiate dependence Opioid dependence Osteomyelitis of great toe of left foot Peripheral neuropathy Restless leg syndrome Right second toe ulcer Seizures Sepsis Shortness of breath Surgical History History of esophagogastroduodenoscopy (EGD) History of lumbar surgery History of right below knee amputation (12/22/21) Right Below Knee Amputation(Right) - Davon Good MD, FACS Family History Mother , age 63 Myocardial infarction Father , age 68 or 69 Myocardial infarction Brother S/P CABG (coronary artery bypass graft) Sister Myocardial infarction x 3; she is 57yo Social History Smoking Status: Current every day smoker Tobacco Type: Cigarettes packs per day: 0.5; Cigarettes Per Day: 20; Second Hand Exposure: No; Hx Alcohol Use: No Hx Substance Use: Yes Prescribed Medications: Marijuana Substance Use Type Other:: medical marijuana Preferred Language: Khmer Communication Ability: Effective Visual Impairment: No Limitations Hearing Ability: Normal Tiler Required: No Beliefs That Will Affect Care: None marital status: Current Living Situation: Spouse current occupational status: unemployed 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 other: raising a grandchild as well; lives in [place] Feels Safe at Home: Yes during the past year weight has: remained stable Assistive Devices: Prosthesis, Walker and Wheelchair Physical Exam Constitutional: WD/WN, vitals as above no distress Eyes: PERRL, conjunctivae normal, anicteric sclerae Neck: trachea midline, no thyromegaly Respiratory: normal respiratory effort, lungs clear to auscultation Cardiovascular: RRR, no murmur, no edema Gastrointestinal (Abdomen): normal bowel sounds, soft, nontender, no hepatosplenomegaly Skin: redness and tenderness at right axillary, 4 spots, no drainage, size about 2 x2cm, and others 1x1cm, Neurologic: patellar DTR's 2+ bilat, sensation intact Psychiatric: A+Ox3, euthymic affect Results & Data ([facility]) Vital Signs (Past 12 Hours) Vital Signs Temp Pulse Pulse Resp BP Pulse Ox O2 Del Method 10/17/22 17:45 95 H 10/17/22 17:09 110 H 17 217/99 H 96 Room Air 10/17/22 15:40 95 H 16 199/95 H 94 Room Air 10/17/22 13:43 101 H 10/17/22 13:28 99 H 19 96 Room Air 10/17/22 13:27 97 H 16 186/87 H 96 Room Air 10/17/22 13:17 107 H 19 96 Room Air 10/17/22 13:08 36.4 C L 109 H 18 185/86 H 97 Laboratory Results Abnormal lab results 10/17/22 10/17/22 10/17/22 Range/Units 13:30 13:30 13:30 WBC 15.87 H (4.8-10.8) K/ul RBC 5.88 H (4.20-5.40) M/uL Hct 47.6 H (37.0-47.0) % Neut # (Auto) 11.67 H (1.40-6.50) K/uL [place] # (Auto) 0.75 H (0.11-0.59) K/uL ESR 49 H (0-30) mm/hr Sodium 135 L (136-145) mmol/L Chloride 97 L (98-107) mmol/L Creatinine 0.43 L (0.6-1.2) mg/dl BUN/Creatinine Ratio 20.9 H (10-20) Glucose 231 H (70-99(Fasting)) mg/dl Calcium 10.2 H (8.5-10.1) mg/dl AST 12 L (13-39) U/L C-Reactive Protein 0.63 H (0-0.5) mg/dl Total Protein 8.5 H (6.0-8.3) gm/dl Lipase 3 L (11-82) U/L Urine Protein (Negative) Urine Glucose (UA) (Negative) U Epithel Cells (Auto) (0-5) /lpf 10/17/22 Range/Units 16:05 WBC (4.8-10.8) K/ul RBC (4.20-5.40) M/uL Hct (37.0-47.0) % Neut # (Auto) (1.40-6.50) K/uL [place] # (Auto) (0.11-0.59) K/uL ESR (0-30) mm/hr Sodium (136-145) mmol/L Chloride (98-107) mmol/L Creatinine (0.6-1.2) mg/dl BUN/Creatinine Ratio (10-20) Glucose (70-99(Fasting)) mg/dl Calcium (8.5-10.1) mg/dl AST (13-39) U/L C-Reactive Protein (0-0.5) mg/dl Total Protein (6.0-8.3) gm/dl Lipase (11-82) U/L Urine Protein 2+ H (Negative) Urine Glucose (UA) Trace H (Negative) U Epithel Cells (Auto) 20-30 H (0-5) /lpf Diagnostic Findings US extremity non-vascular ltd HISTORY: 57 years-old Female right axilarry swelling, possible abscess acute pain and swelling of the right axilla COMPARISON: None TECHNIQUE: Multiple real-time sonographic images of the right axilla were obtained assessing grayscale appearance and color flow FINDINGS: There are 4 complex cutaneous/superficial subcutaneous hypoechoic lesion/collections with peripheral hypervascularity, the largest measuring 2.5 x 1.9 x 0.8 cm. The remaining foci are subcentimeter. IMPRESSION: Cutaneous/subcutaneous complex collections of the right axilla measuring up to 2.5 cm are suspicious for small abscesses. Correlate clinically to exclude hydradenitis suppurativa. ACT 112: Negative or not required by law. The above report was generated using voice recognition software. It may contain grammatical, syntax or spelling errors.
[2022-10-17] MEDS ORDERED: HYDROmorphone INJ 0.5 MG/0.5 ML SYR ONE (20:22)
[2022-10-17] MEDS ORDERED: HYDROmorphone INJ 0.5 MG/0.5 ML SYR IV PRN (21:49)
[2022-10-17] MEDS ORDERED: INSULIN ASPART PER UNIT SC SCH (21:49)
[2022-10-17] MEDS ORDERED: NALOXONE HCL 0.4 MG/1 ML VIAL/CARP IV PRN (21:49)
[2022-10-17] MEDS ORDERED: CARBOHYDRATES FOR HYPOGLYCEMIA PO PRN (22:00)
[2022-10-17] MEDS ORDERED: GLUCOSE 40% GEL 15 GM TUBE PO PRN (22:00)
[2022-10-17] MEDS ORDERED: DEXTROSE 50% 50 ML SYRINGE IV PRN (22:00)
[2022-10-17] MEDS ORDERED: GLUCAGON FOR INJ 1 MG VIAL IM PRN (22:00)
[2022-10-17] MEDS ORDERED: GLUCOSE 10 TAB/TUBE PO PRN (22:00)
[2022-10-17] MEDS: ONDANSETRON INJ 2 MG/ML 2 ML VIAL IV PRN (23:11)
[2022-10-17] MEDS: CYCLOBENZAPRINE HCL 10 MG TAB PO SCH (23:46)
[2022-10-17] MEDS: ZOLPIDEM TARTRATE 10 MG TAB PO PRN (23:47)
[2022-10-17] MEDS: rOPINIRole HCL 2 MG TABLET PO SCH (23:47)
[2022-10-17] MEDS: SERTRALINE HCL 50 MG TABLET PO SCH (23:47)
[2022-10-17] MEDS ORDERED: LABETALOL HCL IV 5 MG/ML 20ML IV STA (23:49)
[2022-10-17] MEDS: metroNIDAZOLE 500 MG/100 ML BAG IV SCH (23:49)
[2022-10-18] MEDS ORDERED: ENALAPRILAT 1.25 MG in DEXTROSE 5% 25 ML IV ONE
[2022-10-18] MEDS: LANTUS PER UNIT CHARGE SQ SCH ×2 (00:20→21:58)
[2022-10-18] MEDS: INSULIN ASPART PER UNIT SC SCH ×5 (00:21→21:58)
[2022-10-18] MEDS: CIPROFLOXACIN / D5W 400 MG/200 ML BAG IV SCH ×3 (00:45→23:15)
[2022-10-18] MEDS ORDERED: METOCLOPRAMIDE HCL INJ 5 MG/ML 2 ML VIAL IV ONE (00:59)
[2022-10-18] MEDS ORDERED: hydrALAZINE HCL 20 MG/ML VIAL IV STA (01:10)
[2022-10-18] MEDS ORDERED: KETOROLAC TROMETHAMINE 15 MG/ML VIAL IV ONE (02:06)
[2022-10-18] MEDS: HYDROmorphone INJ 1 MG/ML SYRINGE IV PRN ×5 (02:51→19:54)
[2022-10-18] MEDS: metroNIDAZOLE 500 MG/100 ML BAG IV SCH ×3 (06:28→21:44)
[2022-10-18] MEDS: ONDANSETRON INJ 2 MG/ML 2 ML VIAL IV PRN ×2 (06:30→18:14)
[2022-10-18 06:32] LABS: Hematocrit (blood only) 42.8 % (37.0-47.0); Mean Corpuscular Hemoglobin 26.8 pg (25.0-34.0); Mean Corpuscular Hgb Conc 32.7 g/dL (32.0-36.0); Mean Corpuscular Volume 81.8 fL (80.0-100.0); Mean Platelet Volume 9.6 fL (9.4-12.4); Platelet Count 299 K/uL (130-400); RDW Coefficient of Variation 14.4 % (11.5-14.5); RDW Standard Deviation 42.4 fL (36.4-46.3); Red Blood Count 5.23 M/uL (4.20-5.40); White Blood Count 13.45 K/ul (4.8-10.8)
[2022-10-18 06:42] LABS: Albumin Globulin Ratio 1.6 (0.9-2); Albumin Level 4.2 gm/dl (3.4-5.0); BUN Creatinine Ratio 16.2 (10-20); Bilirubin,Total 0.6 mg/dl (0.2-1.0); Calcium 9.6 mg/dl (8.5-10.1); Creatinine Clr Calc Pharmacy 74.2 ml/min; Est GFR (African American) 103.5 ml/min; Est GFR (Non-African American) 89.3 ml/min; Globulin 2.7 gm/dl (2.5-4.0); Potassium 4.1 mmol/L (3.5-5.1); Total Protein 6.9 gm/dl (6.0-8.3)
[2022-10-18] MEDS: LORazepam 1 MG TAB PO PRN ×2 (08:14→21:42)
[2022-10-18] MEDS: CYCLOBENZAPRINE HCL 10 MG TAB PO SCH ×3 (08:14→21:43)
[2022-10-18] MEDS: METOPROLOL SUCC 50MG EXT REL TAB PO SCH (08:14)
[2022-10-18] MEDS ORDERED: BUPIVACAINE 0.5 % 5 MG/1 ML MPF 30ML VIAL ONE (09:17)
[2022-10-18] MEDS ORDERED: LIDOCAINE 1% LOCAL 20 ML VIAL ONE (09:17)
[2022-10-18] MEDS ORDERED: DexMEDEtomidine HCL IV 100 MCG/ML VIAL IV ONE (09:32)
[2022-10-18] MEDS ORDERED: PROPOFOL IV EMULSION 10 MG/ML 20 ML VIAL IV ONE (09:42)
[2022-10-18] MEDS ORDERED: fentaNYL citrate PF 100 MCG/2 ML VIAL ONE (09:42)
[2022-10-18] MEDS ORDERED: LIDOCAINE 2% MPF LOCAL 5 ML VIAL INFIL ONE (09:42)
[2022-10-18] MEDS ORDERED: ONDANSETRON INJ 2 MG/ML 2 ML VIAL ONE (09:42)
[2022-10-18] MEDS ORDERED: MIDAZOLAM HCL 1 MG/ML 2ML VIAL ONE (09:42)
--- NOTE | 2022-10-18 09:50 | History & Physical Bridge Note ---
Date of Service October 18, 2022 History & Physical Bridge Note I have examined the patient, reviewed the History & Physical and in the interval since the performance of the History & Physical I have noted the following changes of clinical significance: no changes noted Supervising Physician Co-Signing Physician Notes Patient seen and examined, chart reviewed, case discussed with Janel Blanton, and I agree with the assessment and plan as above except as otherwise noted Labs and images reviewed 57yo F with a history of type II DM, chronic pain syndrome, peripheral vascular disease with right BKA, left hallux amputation, iron deficiency anemia, prior tobacco use, depression, CAD who presented with severe right axillary pain with vomiting and general unwellness. She reports that she has had increasing pain of at least 2 to 3 days of pain in her right armpit, and now has had worsening abdominal upset. Imaging work-up in the ER is suspicious for abscess versus hidradenitis, surgery has been consulted and anticipate incision and drainage. Patient is n.p.o. in anticipation of drainage and pharmoprophylaxis of DVT is held pending surgery. N.p.o., fluids as noted. Pain control with conversion to hydromorphone 0.5 every 4 hours as needed for breakthrough pain, caution history of narcosis. Rescue Narcan on-call if needed. At bedside patient is tachycardic in the setting of pain, right arm patient is with multiple fluctuant lumps but no active drainage. Right armpit is tender to palpation. Right BKA as noted, no acute cellulitis.
--- NOTE | 2022-10-18 10:01 | Anesthesiology Consultation ---
Date of Service October 18, 2022 Assessment & Plan Chart Review Chart Review: Acceptable Risk for Surgery Consults Requested none History Surgery Operation Date: 10/18/22 07:00 Proposed Procedures p Right Axillary Abscess Incision and Drainage - Yovani Montejo MD Height/Weight Height: 5 ft 2 in Weight: 66.7 kg Allergies Allergy/AdvReac Type Severity Reaction Status Date / Time morphine Allergy Severe blisters Verified 10/17/22 16:49 in mouth Sulfa (Sulfonamide Allergy Severe rash/swelli Verified 10/17/22 16:49 Antibiotics) ng amoxicillin [From Augmentin] Allergy Intermediate itching/power Verified 10/17/22 16:49 h ceftriaxone [From Rocephin] Allergy Intermediate Hives Verified 10/17/22 16:49 clavulanic acid Allergy Intermediate itching/power Verified 10/17/22 16:49 [From Augmentin] h erythromycin base Allergy Intermediate Hives Verified 10/17/22 16:49 iron [From Venofer] Allergy Intermediate Hypertensio Verified 10/17/22 16:49 n vancomycin Allergy Intermediate YULIYA Verified 10/17/22 16:49 SYNDROME---CAN TAKE IF VERY SLOW DRIP. dermabond AdvReac Intermediate excoriates Uncoded 10/17/22 16:49 skin Medications Home Medications Medication Instructions Recorded Confirmed Last Taken ropinirole 2 mg tablet 4 mg PO HS 10/19/20 10/17/22 10/01/22 metoprolol succinate 50 mg 50 mg PO QAM 03/05/21 10/17/22 10/02/22 tablet,extended release 24 hr (Toprol XL) lorazepam 1 mg tablet (Ativan) 1 mg PO TID PRN Anxiety 11/04/21 10/17/22 04/06/22 09:00 cyclobenzaprine 10 mg tablet 10 mg PO TID 11/24/21 10/17/22 03/08/22 insulin lispro 100 unit/mL 5 unit subcut TIDM 03/08/22 10/17/22 10/02/22 subcutaneous pen zolpidem 10 mg tablet 10 mg PO HS PRN Sleep 03/08/22 10/17/22 Unknown sertraline 50 mg tablet 50 mg PO HS #30 tabs 06/27/22 10/17/22 10/01/22 oxycodone-acetaminophen 5 mg-325 2 tab PO Q4H PRN Pain 10/02/22 10/17/22 Unknown mg tablet clindamycin HCl 150 mg capsule 150 mg PO Q6H 10 days #40 caps 10/17/22 Unknown insulin glargine 100 unit/mL (3 40 unit subcut HS 10/17/22 10/17/22 Unknown mL) subcutaneous pen (Lantus Solostar U-100 Insulin) ondansetron HCl 4 mg tablet 4 mg PO Q8H PRN nausea and 10/17/22 Unknown vomiting #20 tabs oxycodone 5 mg tablet 5 mg PO Q6H PRN pain #20 tabs 10/17/22 Unknown Active Medications Generic Name Dose Route Start Last Admin Trade Name Freq PRN Reason Stop Dose Admin Cyclobenzaprine HCl 10 mg 10/17/22 21:49 10/18/22 08:14 Cyclobenzaprine Hcl 10 Mg Tab PO 11/16/22 21:48 10 mg TID RICKY Administration Hydromorphone HCl 1 mg 10/18/22 02:16 10/18/22 06:47 Hydromorphone Inj 1 Mg/Ml Syringe IV 10/31/22 21:48 1 mg Q4H PRN Administration Pain Ciprofloxacin 400 mg in 200 mls @ 100 mls/hr 10/17/22 23:00 10/18/22 02:48 Cipro / D5w IV 10/19/22 22:59 Infused Q12H RICKY Infusion Protocol Metronidazole 500 mg in 100 mls @ 100 mls/hr 10/17/22 22:00 10/18/22 09:29 Flagyl IV 10/19/22 21:59 Infused Q8H RICKY Infusion Insulin Aspart 0 units 10/17/22 22:00 10/18/22 06:49 Insulin Aspart Per Unit SC 11/16/22 21:59 1 units Q6 RICKY Administration Insulin Glargine 28 units 10/17/22 22:00 10/18/22 00:20 Lantus Per Unit Charge SQ 11/16/22 21:59 28 units HS RICKY Administration Lorazepam 1 mg 10/17/22 21:49 10/18/22 08:14 Lorazepam 1 Mg Tab PO 11/16/22 21:48 1 mg TID PRN Administration Anxiety Metoprolol Succinate 50 mg 10/18/22 09:00 03/08/23 08:14 Metoprolol Succ 50mg Ext Rel Tab PO 11/17/22 08:59 50 mg QAM RICKY Administration Ondansetron HCl 4 mg 10/17/22 22:49 10/18/22 06:30 Ondansetron Inj 2 Mg/Ml 2 Ml Vial IV 11/16/22 22:59 4 mg Q6H PRN Administration Nausea Ropinirole HCl 4 mg 10/17/22 21:49 10/17/22 23:47 Ropinirole Hcl 2 Mg Tablet PO 11/16/22 21:48 4 mg HS RICKY Administration Sertraline HCl 50 mg 10/17/22 21:49 10/17/22 23:47 Sertraline Hcl 50 Mg Tablet PO 11/16/22 21:48 50 mg HS RICKY Administration Zolpidem Tartrate 10 mg 10/17/22 21:49 10/17/22 23:47 Zolpidem Tartrate 10 Mg Tab PO 11/16/22 21:48 10 mg HS PRN Administration Sleep NPO Date Last Intake of Fluids: 10/17/22 Time Last Intake of Fluids: 22:00 Date Last Intake of Solids: 10/17/22 Time Last Intake of Solids: 18:30 Past Medical History Medical History Abdominal pain Acidosis, lactic Acute dehydration 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 No issues per anesthesia postop progress note. Anemia Benzodiazepine dependence Benzodiazepine withdrawal CAD (coronary artery disease) Cellulitis Chronic back pain Chronic pain syndrome Costochondritis COVID-19 Depression Diabetes mellitus type 2, uncontrolled Diabetic neuropathy Diabetic peripheral neuropathy Diastolic CHF DM2 (diabetes mellitus, type 2) IDDM, A1c 07/2021-11% Esophagitis determined by endoscopy Gastritis Gastroenteritis Gastroparesis GIB (gastrointestinal bleeding) History of amputation of great toe History of tobacco use HTN (hypertension) Hyperlipidemia Hypertriglyceridemia Hypomagnesemia Hyponatremia Infection of left great toe due to methicillin resistant Staphylococcus aureus (MRSA) Insomnia Insulin dependent diabetes mellitus Iron deficiency anemia Nonobstructive atherosclerosis of coronary artery Numbness of lower extremity Opiate abuse, continuous Opiate dependence Opioid dependence Osteomyelitis of great toe of left foot Peripheral neuropathy Restless leg syndrome Right second toe ulcer Seizures Sepsis Shortness of breath Past Family History Family History Mother , age 63 Myocardial infarction Father , age 68 or 69 Myocardial infarction Brother S/P CABG (coronary artery bypass graft) Sister Myocardial infarction x 3; she is 57yo Past Surgical History Surgical History History of esophagogastroduodenoscopy (EGD) History of lumbar surgery History of right below knee amputation (12/22/21) Right Below Knee Amputation(Right) - Davon Good MD, FACS Social History Smoking Status: Current some day smoker tobacco type: cigarettes Smoking cigarettes per day: 20 Do You Dip or Chew Tobacco: No Hx Alcohol Use: No Hx Substance Use: Yes substance use type: marijuana Substance Use Type Other:: medical marijuana Last Used Substance: Days (ago) Physical Exam Vital Signs Last Vital Signs Temp 36.7 C 10/18/22 09:34 Pulse 89 10/18/22 09:34 Resp 20 10/18/22 09:34 BP 127/80 10/18/22 09:34 Pulse Ox 96 10/18/22 09:34 O2 Del Method Room Air 10/18/22 09:34 Testing Laboratory Results 10/18/22 05:57 10/18/22 05:57 PT 10.1 Seconds (9.0-12.0) 10/17/22 13:30 INR 0.9 (0.9-1.1) 10/17/22 13:30 APTT 22.8 Seconds (21.0-31.0) 10/17/22 13:30 Urine Color Yellow 10/17/22 16:05 Urine Appearance Clear (Clear) 10/17/22 16:05 Urine pH 7.5 (4.5-7.5) 10/17/22 16:05 Ur Specific [place] 1.010 (1.000-1.030) 10/17/22 16:05 Urine Protein 2+ (Negative) H 10/17/22 16:05 Urine Glucose (UA) Trace (Negative) H 10/17/22 16:05 Urine Ketones Negative (Negative) 10/17/22 16:05 Urine Nitrite Negative (Negative) 10/17/22 16:05 Ur Leukocyte Esterase Negative (Negative) 10/17/22 16:05 Urine WBC (Auto) 1-5 /hpf (0-5) 10/17/22 16:05 Urine RBC (Auto) 0-4 /hpf (0-4) 10/17/22 16:05 U Hyaline Cast (Auto) 1-5 /lpf (0-5) 10/17/22 16:05 U Epithel Cells (Auto) 20-30 /lpf (0-5) H 10/17/22 16:05 Urine Bacteria (Auto) Negative (Negative) 10/17/22 16:05 10/18/22 10/17/22 05:55 22:23 POC Glucose 184 H 179 H
[2022-10-18] MEDS ORDERED: ATROPINE SULFATE 0.1 MG/ML 10ML SYR IV PRN (10:21)
[2022-10-18] MEDS ORDERED: ePHEDrine sulfate 50 MG/ML AMP IV PRN (10:21)
[2022-10-18] MEDS ORDERED: ONDANSETRON INJ 2 MG/ML 2 ML VIAL IV PRN (10:21)
[2022-10-18] MEDS ORDERED: HYDROmorphone INJ 2 MG/ML SYR/VIAL IV PRN (10:21)
[2022-10-18] MEDS ORDERED: PROMETHAZINE HCL 12.5 MG in SODIUM CHLORIDE 0.9% 50 ML IV PRN (10:21)
--- NOTE | 2022-10-18 10:27 | Post Operative Brief Note ---
Immediate Post Op Note v1 Date of Surgery October 18, 2022 Pre & Post Diagnosis Operation Date: 10/18/22 07:00 per-op diagnosis: multiple abscess on right axillary post-op diagnosis: multiple abscess on right axillary I identified the patient and participated in the time-out.: Yes Procedure Operation Date: 10/18/22 07:00 I/D 3 abscess on right axillary Surgeon Yovani Montejo MD [id number] Developer color technician Estimated Blood Loss 5 Findings Consistent with Post-Op Diagnosis 3 abscess on right axillary, wound culture sent Fluids 200ml Drains Other (packing the wound for one abscess wound ) Disposition Accompanied Patient To Recovery: Yes
--- NOTE | 2022-10-18 11:21 | Operative Report (OR) ---
DATE OF PROCEDURE: 10/18/2022. PREOPERATIVE DIAGNOSIS: Multiple abscesses on the right axilla. POSTOPERATIVE DIAGNOSIS: Multiple abscesses on the right axilla. OPERATION: Incision and drainage 3 abscesses on the right axilla. SURGEON: Yovani Montejo MD. ANESTHESIA: General. ESTIMATED BLOOD LOSS: About 5 mL. FINDINGS: Three abscesses on the right axilla. COMPLICATIONS: None. INDICATIONS FOR THE PROCEDURE: This is a 57-year-old female who was admitted to the hospital for mul tiple abscesses on the right axilla. I recommended to do incision and drainage of abscesses on the r ight axillary, possible multiple incision. I did talk to the patient about the benefit, risk, altern ate procedure. I indicated the risks may include, but not limited to, such as bleeding, infection, r ecurrence, scar, pain, may need more procedure, the patient understands. She signed the informed con sent and I answered all questions. DETAILS OF PROCEDURE: After we identified the patient and verified the procedure, we brought the pat ient to the OR, put the patient in the supine position on the OR table. The patient received SCD on bilateral legs to prevent DVT. Also, patient received 400 mg of Cipro and 500 mg of Flagyl IV for pr ophylactic antibiotic. The patient received general anesthesia without difficulty. The right axilla was prepped and draped in routine sterile fashion after timeout, then I injected the local anesthesi a by using 1% lidocaine mixed with 0.5% Marcaine on the abscesses. The patient had three abscesses, one large one in the middle with the abscess is sized about 3 x 3 cm and another one is about 2 cm la teral with the abscess size about 1 x 1 cm, another abscess is about 2 cm located medially with absce ss size about 1 cm. Once I injected the local anesthesia around the three abscesses, then I made the first incision on the larger abscess on the middle one. There was some pus that came out immediatel y. I made an incision about 2 cm. We sent a wound culture. Once cleared by all the pus and we used quarter-inch Kerlix for packing the wound. Hemostasis obtained. Then we made another incision on t he lateral with small abscess about 1 cm. There, a small amount of pus came out. We sent the wound culture also. Then, I made another 1 cm incision on the third abscess on the medial of the axilla, t he incision about 1 cm long, there a small amount of pus came out. We sent the culture also. Hemost asis obtained. Given this, two small abscesses shallows not packing, the only packing the middle lar ge one. Again hemostasis obtained. Then, we put the dressing on. The patient tolerated the procedu re well. All instrument, needle and sponge counts were correct x2 at the end of the case. The patie nt was transferred to recovery room in stable condition. The wound culture sent to lab. After the p gumaro, I did talk to the patient about the OR finding and the procedure we did, the patient unders marybeth. Job ID: [id number]
[2022-10-18] MEDS ORDERED: FLUARIX QUADRIVALENT 0.5 ML SYR IM ONE (12:00)
[2022-10-18] MEDS ORDERED: Nursing to Pharmacy Communication SCH (12:00)
[2022-10-18] MEDS: oxyCODONE/ACETAMINOPHEN 5mg/325mg TAB PO PRN ×3 (12:56→21:42)
--- NOTE | 2022-10-18 13:30 | Anesthesiology Progress Note ---
Date of Service October 18, 2022 Anesthesia Post Procedure Vital Signs Vital Signs: Temp Pulse Pulse Pulse Pulse Pulse Resp 10/18/22 13:25 80 16 10/18/22 11:53 72 16 10/18/22 11:51 36.6 C 75 16 10/18/22 12:28 79 16 10/18/22 11:04 36.4 C L 74 20 10/18/22 10:55 76 20 10/18/22 10:45 77 12 10/18/22 10:37 36.1 C L 78 24 10/18/22 09:34 36.7 C 89 89 20 10/18/22 07:12 37.0 C 105 H 16 10/17/22 23:30 10/18/22 01:55 10/18/22 01:27 102 H 10/18/22 00:52 98 H 10/18/22 00:27 98 H 10/17/22 23:36 36.5 C 101 H 16 10/17/22 21:30 37.1 C 102 H 16 10/17/22 21:05 37.2 C 72 15 10/17/22 17:45 95 H 10/17/22 17:09 110 H 17 10/17/22 15:40 95 H 16 10/17/22 13:43 101 H BP BP Pulse Ox O2 Del Method O2 Flow Rate 10/18/22 13:25 162/78 H 100 Nasal Cannula 2 10/18/22 11:53 107/66 95 Nasal Cannula 2 10/18/22 11:51 95/65 L 94 Nasal Cannula 2 10/18/22 12:28 149/73 H 96 Nasal Cannula 2 10/18/22 11:04 101/60 93 Nasal Cannula 2 10/18/22 10:55 104/56 L 93 Nasal Cannula 2 10/18/22 10:45 91/53 L 94 Nasal Cannula 2 10/18/22 10:37 113/59 L 94 Nasal Cannula 2 10/18/22 09:34 127/80 96 Room Air 10/18/22 07:12 138/76 94 Room Air 10/17/22 23:30 Room Air 10/18/22 01:55 119/71 10/18/22 01:27 207/92 H 10/18/22 00:52 192/94 H 10/18/22 00:27 190/81 H 10/17/22 23:36 210/102 H 98 Room Air 10/17/22 21:30 185/82 H 95 Room Air 10/17/22 21:05 176/101 H 95 Room Air 10/17/22 17:45 10/17/22 17:09 217/99 H 96 Room Air 10/17/22 15:40 199/95 H 94 Room Air 10/17/22 13:43 Pain Intensity Right Axilla: Pain Intensity: 7 Transfer of Care Handoff Completed per policy Notes Mental Status: alert / awake / arousable and participated in evaluation Patient Amnestic to Procedure: Yes Nausea / Vomiting: adequately controlled Pain: adequately controlled Airway Patency, RR, SpO2: stable & adequate BP & HR: stable & adequate Hydration State: stable & adequate Anesthetic Complications: no major complications apparent
--- NOTE | 2022-10-18 17:05 | Hospitalist Progress Note ---
Date of Service October 18, 2022 Assessment & Plan (1) Abscess of right axilla: Plan: Patient had abscess in her right axilla which required incise and drainage. Patient is on Cipro metronidazole this will be continued. Pending culture evaluation (2) Diabetes mellitus type 2, uncontrolled: Plan: Chronic diabetes mellitus uncontrolled with endorgan damage including peripheral artery disease with status post right BKA and previous left foot osteomyelitis with toe amputations. Given her perioperative status remains on basal bolus insulin therapy Besides her peripheral neuropathy and peripheral artery disease gastroparesis is also an endorgan issue of this patient's complicated diabetes management at (3) Chronic pain syndrome: Plan: Chronic uncontrolled patient's pain always is an issue postoperatively using parenteral pain medications at this time (4) Iron deficiency anemia: Plan: Patient is not anemic but likely has poor absorptive issues with iron iron levels will be checked in the morning (5) History of tobacco use: Plan: Tobacco cessation counseling is offered (6) Depression: Plan: Patient suffers from significant anxiety and depression typically on sertraline ropinirole Admission and Anticipated Discharge Date Admission Date: October 17, 2022 Subjective Patient seen postoperatively in the PACU. She recent axillary resection due to incessant size and drainage. She is actually feeling well though mildly nauseated. Physical Exam Physical Exam: Patient awake alert appropriate. She had bandaging on her right axilla. Heart was regular lungs were clear. Her distal extremity on the right showed her BKA stump to be in good condition her left cannot be viewed as she had SCDs on. Results & Data Results & Data ([facility]) Vital Signs (Past 12 Hours) Vital Signs Temp Pulse Pulse Pulse Pulse Resp BP 10/18/22 14:40 97.9 F 82 16 105/67 10/18/22 13:25 80 16 162/78 H 10/18/22 11:53 72 16 107/66 10/18/22 11:51 97.9 F 75 16 95/65 L 10/18/22 12:28 79 16 149/73 H 10/18/22 11:04 97.5 F L 74 20 101/60 10/18/22 10:55 76 20 104/56 L 10/18/22 10:45 77 12 91/53 L 10/18/22 10:37 97.0 F L 78 24 113/59 L 03/08/23 09:34 98.1 F 89 89 20 127/80 10/18/22 07:12 98.6 F 105 H 16 138/76 Pulse Ox O2 Del Method O2 Flow Rate 10/18/22 14:40 95 Room Air 10/18/22 13:25 100 Nasal Cannula 2 10/18/22 11:53 95 Nasal Cannula 2 10/18/22 11:51 94 Nasal Cannula 2 10/18/22 12:28 96 Nasal Cannula 2 10/18/22 11:04 93 Nasal Cannula 2 10/18/22 10:55 93 Nasal Cannula 2 10/18/22 10:45 94 Nasal Cannula 2 10/18/22 10:37 94 Nasal Cannula 2 10/18/22 09:34 96 Room Air 10/18/22 07:12 94 Room Air Laboratory Results Reviewed CBC Reviewed PRP PG Care Time/CCT Total # of Minutes Spent Total Time Spent with Patient: Total time spent is greater than 50% in coordination of care (as documented) at patient's floor/unit and/or counseling patient: Coding Level of Care Code 89563 SUB INP/OBS CARE MIN Diagnoses Abscess of right axilla L02.411 Diabetes mellitus type 2, uncontrolled E11.65 Chronic pain syndrome G89.4 Iron deficiency anemia D50.9 History of tobacco use Z87.891 Depression F32.9
[2022-10-18] MEDS: ZOLPIDEM TARTRATE 10 MG TAB PO PRN (21:41)
[2022-10-18] MEDS: rOPINIRole HCL 2 MG TABLET PO SCH (21:56)
[2022-10-18] MEDS: SERTRALINE HCL 50 MG TABLET PO SCH (21:57)
[2022-10-19] MEDS: HYDROmorphone INJ 1 MG/ML SYRINGE IV PRN ×6 (00:08→21:11)
[2022-10-19] MEDS ORDERED: LACTATED RINGER'S 500 ML IV SCH (00:45)
[2022-10-19] MEDS: oxyCODONE/ACETAMINOPHEN 5mg/325mg TAB PO PRN ×5 (02:54→20:14)
--- NOTE | 2022-10-19 05:50 | Electrocardiogram Report ---
Test Reason : Blood Pressure : / mmHG Vent. Rate : 099 BPM Atrial Rate : 099 BPM P-R Int : 148 ms QRS Dur : 084 ms QT Int : 326 ms P-R-T Axes : 065 058 063 degrees QTc Int : 418 ms Normal sinus rhythm Septal infarct (cited on or before 02-OCT-2022) Abnormal ECG When compared with ECG of 02-OCT-2022 12:18, Questionable change in initial forces of Anterior leads Confirmed by Aakash Ruff ([id number]) on 10/19/2022 5:49:59 AM Referred By: Vince Vernon Confirmed By:Aakash Ruff
[2022-10-19] MEDS: metroNIDAZOLE 500 MG/100 ML BAG IV SCH ×3 (06:43→22:43)
[2022-10-19] MEDS: LORazepam 1 MG TAB PO PRN ×2 (06:43→15:19)
[2022-10-19] MEDS: CYCLOBENZAPRINE HCL 10 MG TAB PO SCH ×3 (07:38→20:15)
[2022-10-19] MEDS: METOPROLOL SUCC 50MG EXT REL TAB PO SCH (07:38)
[2022-10-19 07:49] LABS: Basophils # (auto) 0.05 K/uL (0-0.2); Basophils % (auto) 0.5 %; Eosinophils # (auto) 0.43 K/uL (0-0.50); Eosinophils % (auto) 4.2 %; Hematocrit (blood only) 41.5 % (37.0-47.0); Hemoglobin 13.4 g/dl (12.0-16.0); Immature Granulocytes # (auto) 0.02 K/uL (0.01-0.20); Immature Granulocytes % (auto) 0.2 %; Lymphocytes # (auto) 3.13 K/uL (1.2-3.4); Lymphocytes % (auto) 30.2 %; Mean Corpuscular Hemoglobin 26.5 pg (25.0-34.0); Mean Corpuscular Hgb Conc 32.3 g/dL (32.0-36.0); Mean Corpuscular Volume 82.2 fL (80.0-100.0); Mean Platelet Volume 9.9 fL (9.4-12.4); Monocytes # (auto) 0.85 K/uL (0.11-0.59); Monocytes % (auto) 8.2 %; Neutrophils # (auto) 5.87 K/uL (1.40-6.50); Neutrophils % (auto) 56.7 %; Platelet Count 288 K/uL (130-400); RDW Coefficient of Variation 14.3 % (11.5-14.5); RDW Standard Deviation 42.2 fL (36.4-46.3); Red Blood Count 5.05 M/uL (4.20-5.40); White Blood Count 10.35 K/ul (4.8-10.8)
[2022-10-19 08:03] LABS: Albumin Globulin Ratio 1.5 (0.9-2); Albumin Level 4.3 gm/dl (3.4-5.0); BUN Creatinine Ratio 23.5 (10-20); Bilirubin,Total 0.7 mg/dl (0.2-1.0); Calcium 9.3 mg/dl (8.5-10.1); Creatinine Clr Calc Pharmacy 107.7 ml/min; Est GFR (African American) 122.8 ml/min; Globulin 2.8 gm/dl (2.5-4.0); Potassium 3.7 mmol/L (3.5-5.1); Total Protein 7.1 gm/dl (6.0-8.3)
[2022-10-19] MEDS: ONDANSETRON INJ 2 MG/ML 2 ML VIAL IV PRN (08:28)
[2022-10-19] MEDS: INSULIN ASPART PER UNIT SC SCH ×4 (10:02→21:05)
[2022-10-19] MEDS ORDERED: lisinopril 10 MG TAB PO ONE (11:27)
[2022-10-19] MEDS ORDERED: hydrALAZINE HCL 20 MG/ML VIAL IV ONE (11:29)
[2022-10-19] MEDS: CIPROFLOXACIN / D5W 400 MG/200 ML BAG IV SCH ×2 (11:32→22:44)
--- NOTE | 2022-10-19 11:45 | Surgery Progress Note ---
Date of Service October 19, 2022 Assessment & Plan (1) Abscess of right axilla: Plan: POD # 1 s/p I&D of 3 right axillary abscesses -afebrile, wbc normal - moderate postop pain - multiple skin issues Plan: Will need wound care follow-up on discharge. Packing changes every other day. Outer dressing changes as needed culture showing staphylococcus, history of MRSA, antibiotics per medicine given her multiple allergies Follow-up with Dr. Montejo in 2 weeks pain management as needed continue medical management okay from surgical standpoint for discharge with wound care clinic follow-up Dr. Montejo has seen and examined pt, agrees with above. Admission and Anticipated Discharge Date Admission Date: October 17, 2022 Subjective having alot of pain/tenderness in axilla blood pressure is elevated multiple wounds noted this morning of right breast, lower abdomen/pannus, and the left great toe Physical Exam Constitutional: WD/WN, vitals as above cooperative; no acute distress and not ill appearing Neck: normal visual inspection and trachea midline Skin: Right axilla with dressing in place, some serous/cloudy drainage present. Dressing not removed today. Multiple wounds noted, small of the right breast, no abscess. Small skin tear of left great toe. Psychiatric: Orientation: alert and oriented x 3 Results & Data ([facility]) Vital Signs (Past 12 Hours) Vital Signs Temp Pulse Resp BP Pulse Ox O2 Del Method 10/19/22 11:35 85 16 233/101 H 98 Room Air 10/19/22 08:36 81 16 201/92 H 96 Room Air 10/19/22 07:03 36.8 C 95 H 16 215/115 H 98 Room Air 10/19/22 03:28 36.8 C 79 18 157/71 H 95 Room Air Laboratory Results 10/19/22 10/19/22 10/19/22 Range/Units 08:12 07:21 07:21 WBC 10.35 (4.8-10.8) K/ul RBC 5.05 (4.20-5.40) M/uL Hgb 13.4 (12.0-16.0) g/dl Hct 41.5 (37.0-47.0) % MCV 82.2 (80.0-100.0) fL MCH 26.5 (25.0-34.0) pg MCHC 32.3 (32.0-36.0) g/dL RDW Std Deviation 42.2 (36.4-46.3) fL RDW Coeff of Maria Del Carmen 14.3 (11.5-14.5) % Plt Count 288 (130-400) K/uL MPV 9.9 (9.4-12.4) fL Immature Gran % (Auto) 0.2 % Neut % (Auto) 56.7 % Lymph % (Auto) 30.2 % [place] % (Auto) 8.2 % Eos % (Auto) 4.2 % Baso % (Auto) 0.5 % Neut # (Auto) 5.87 (1.40-6.50) K/uL Lymph # (Auto) 3.13 (1.2-3.4) K/uL [place] # (Auto) 0.85 H (0.11-0.59) K/uL Eos # (Auto) 0.43 (0-0.50) K/uL Baso # (Auto) 0.05 (0-0.2) K/uL Immature Gran # (Auto) 0.02 (0.01-0.20) K/uL Sodium 138 (136-145) mmol/L Potassium 3.7 (3.5-5.1) mmol/L Chloride 101 (98-107) mmol/L Carbon Dioxide 32 (21-32) mmol/L Anion Gap 5 (3-11) BUN 12 (6-23) mg/dl Creatinine 0.51 L (0.6-1.2) mg/dl Est Cr Clr Drug Dosing 107.7 ml/min Est GFR ( Amer) 122.8 ml/min Est GFR (Non-Af Amer) 106.0 ml/min BUN/Creatinine Ratio 23.5 H (10-20) Glucose 99 (70-99(Fasting)) mg/dl POC Glucose 98 (70-99) mg/dl Calcium 9.3 (8.5-10.1) mg/dl Total Bilirubin 0.7 (0.2-1.0) mg/dl AST 13 (13-39) U/L ALT 12 (7-52) U/L Alkaline Phosphatase 82 (34-104) U/L Total Protein 7.1 (6.0-8.3) gm/dl Albumin 4.3 (3.4-5.0) gm/dl Globulin 2.8 (2.5-4.0) gm/dl Albumin/Globulin Ratio 1.5 (0.9-2) 10/18/22 10/18/22 10/18/22 Range/Units 20:22 16:42 11:56 WBC (4.8-10.8) K/ul RBC (4.20-5.40) M/uL Hgb (12.0-16.0) g/dl Hct (37.0-47.0) % MCV (80.0-100.0) fL MCH (25.0-34.0) pg MCHC (32.0-36.0) g/dL RDW Std Deviation (36.4-46.3) fL RDW Coeff of Maria Del Carmen (11.5-14.5) % Plt Count (130-400) K/uL MPV (9.4-12.4) fL Immature Gran % (Auto) % Neut % (Auto) % Lymph % (Auto) % [place] % (Auto) % Eos % (Auto) % Baso % (Auto) % Neut # (Auto) (1.40-6.50) K/uL Lymph # (Auto) (1.2-3.4) K/uL [place]ard # (Auto) (0.11-0.59) K/uL Eos # (Auto) (0-0.50) K/uL Baso # (Auto) (0-0.2) K/uL Immature Gran # (Auto) (0.01-0.20) K/uL Sodium (136-145) mmol/L Potassium (3.5-5.1) mmol/L Chloride (98-107) mmol/L Carbon Dioxide (21-32) mmol/L Anion Gap (3-11) BUN (6-23) mg/dl Creatinine (0.6-1.2) mg/dl Est Cr Clr Drug Dosing ml/min Est GFR ( Amer) ml/min Est GFR (Non-Af Amer) ml/min BUN/Creatinine Ratio (10-20) Glucose (70-99(Fasting)) mg/dl POC Glucose 160 H 125 H 135 H (70-99) mg/dl Calcium (8.5-10.1) mg/dl Total Bilirubin (0.2-1.0) mg/dl AST (13-39) U/L ALT (7-52) U/L Alkaline Phosphatase (34-104) U/L Total Protein (6.0-8.3) gm/dl Albumin (3.4-5.0) gm/dl Globulin (2.5-4.0) gm/dl Albumin/Globulin Ratio (0.9-2)
--- NOTE | 2022-10-19 11:45 | Hospitalist Progress Note ---
Date of Service October 19, 2022 Assessment & Plan (1) Abscess of right axilla: Plan: Patient had abscess in her right axilla which required incise and drainage. Patient is on Cipro metronidazole this will be continued. Pending culture evaluation. Patient continues to require pain control IV naroctics. Patient is also having increased blood pressure reasing. (2) Diabetes mellitus type 2, uncontrolled: Plan: Chronic diabetes mellitus uncontrolled with endorgan damage including peripheral artery disease with status post right BKA and previous left foot osteomyelitis with toe amputations. Given her perioperative status remains on basal bolus insulin therapy Besides her peripheral neuropathy and peripheral artery disease gastroparesis is also an endorgan issue of this patient's complicated diabetes management at (3) Chronic pain syndrome: Plan: Chronic uncontrolled patient's pain always is an issue postoperatively using pa renteral pain medications at this time (4) Iron deficiency anemia: Plan: Patient is not anemic but likely has poor absorptive issues with iron iron levels will be checked in the morning (5) History of tobacco use: Plan: Tobacco cessation counseling is offered (6) Depression: Plan: Patient suffers from significant anxiety and depression typically on sertraline ropinirole (7) Hypertensive urgency, malignant: Plan: Blood pressure in 230 range systolically. will order renal doppler ultrasound for possible Renal artery stenosis. will order iv hydralazin given her severe headache Admission and Anticipated Discharge Date Admission Date: October 17, 2022 Subjective Patient is cyring and stating she has a splitting headache. She reports her right axillae hurts as well as her head. She states she get these headaches when her blood pressure is high. Review of Systems Review of Systems: All systems reviewed & are unremarkable except as noted in HPI & below Physical Exam Physical Exam: Patient awake alert appropriate. She had bandaging on her right axilla. Heart was regular lungs were clear. Her distal extremity on the right showed her BKA stump to be in good condition her left cannot be viewed as she had SCDs on. Neurologically intacted. Open skin lesions on left great toe Results & Data Results & Data ([facility]) Vital Signs (Past 12 Hours) Vital Signs Temp Pulse Resp BP Pulse Ox O2 Del Method 10/19/22 11:35 85 16 233/101 H 98 Room Air 10/19/22 08:36 81 16 201/92 H 96 Room Air 10/19/22 07:03 36.8 C 95 H 16 215/115 H 98 Room Air 10/19/22 03:28 36.8 C 79 18 157/71 H 95 Room Air PG Care Time/CCT Total # of Minutes Spent Total Time Spent with Patient: Total time spent is greater than 50% in coordination of care (as documented) at patient's floor/unit and/or counseling patient: Coding Level of Care Code 92675 SUB INP/OBS CARE 3/50MIN Diagnoses Abscess of right axilla L02.411 Diabetes mellitus type 2, uncontrolled E11.65 Chronic pain syndrome G89.4 Iron deficiency anemia D50.9 History of tobacco use Z87.891 Depression F32.9 Hypertensive urgency, malignant I16.0
--- NOTE | 2022-10-19 14:10 | Ultrasound Report ---
DOPPLER ULTRASOUND OF THE RENAL ARTERIES CLINICAL HISTORY: Hypertension. COMPARISON STUDY: Abdominal CT dated 10/17/2022. TECHNIQUE: Doppler sonography of the renal arteries was performed to assess renal artery stenosis. Im ages are reviewed in the transverse and longitudinal planes. FINDINGS: The kidneys are normal in size and echotexture. The right kidney measures 14.0 cm in length and the l eft kidney measures 11.2 cm in length. There is no hydronephrosis. On the right, intrarenal arterial resistive indices range from 0.74 to 0.81. Intrarenal arterial wave forms are normal with brisk upstrokes. The right renal arterial waveform is normal, and velocities wi thin the right renal artery measure up to 136 cm/sec. The right renal vein is patent. On the left, intrarenal arterial resistive indices range from 0.73 to 0.86. Intrarenal arterial wave forms are normal with brisk upstrokes. The left renal arterial waveform is normal, and velocities wit hin the left renal artery measure up to 109 cm/sec. The left renal vein is patent. The abdominal aorta is patent. Velocities within the abdominal aorta measure up to 60 cm/s. IMPRESSION: There is no sonographic evidence of renal artery stenosis. ACT 112: Negative or not required by law. Electronically signed by: Finn Bradshaw M.D. 10/19/2022 2:09 PM
[2022-10-19] MEDS: SERTRALINE HCL 50 MG TABLET PO SCH (20:14)
[2022-10-19] MEDS: ZOLPIDEM TARTRATE 10 MG TAB PO PRN (20:14)
[2022-10-19] MEDS: rOPINIRole HCL 2 MG TABLET PO SCH (20:15)
[2022-10-19] MEDS: LANTUS PER UNIT CHARGE SQ SCH (21:06)
[2022-10-20] MEDS ORDERED: hydrALAZINE HCL 20 MG/ML VIAL IV ONE (00:55)
[2022-10-20] MEDS: ONDANSETRON INJ 2 MG/ML 2 ML VIAL IV PRN (01:54)
[2022-10-20] MEDS: HYDROmorphone INJ 1 MG/ML SYRINGE IV PRN ×4 (01:54→14:55)
[2022-10-20] MEDS: oxyCODONE/ACETAMINOPHEN 5mg/325mg TAB PO PRN ×3 (04:26→13:01)
[2022-10-20] MEDS ORDERED: METOCLOPRAMIDE HCL INJ 5 MG/ML 2 ML VIAL IV ONE (06:06)
[2022-10-20] MEDS: metroNIDAZOLE 500 MG/100 ML BAG IV SCH ×2 (06:16→13:39)
[2022-10-20] MEDS: CYCLOBENZAPRINE HCL 10 MG TAB PO SCH ×2 (07:53→15:20)
[2022-10-20] MEDS: METOPROLOL SUCC 50MG EXT REL TAB PO SCH (07:53)
[2022-10-20] MEDS: INSULIN ASPART PER UNIT SC SCH ×2 (09:24→12:53)
[2022-10-20] MEDS ORDERED: DAPTOmycin 225 MG in SYRINGE 0 ML IV SCH (10:00)
[2022-10-20] MEDS ORDERED: amLODIPine BESYLATE 5 MG TAB PO ONE (11:51)
--- NOTE | 2022-10-20 11:52 | Surgery Progress Note ---
Date of Service October 20, 2022 Assessment & Plan (1) Abscess of right axilla: Plan: POD # 2 s/p I&D of 3 right axillary abscesses -afebrile, wbc normal - moderate postop pain - multiple skin issues - culture +MRSA (History of +MRSA) Plan: Does not need wound care follow-up as packing fell out. Daily dressing changes Follow-up with Dr. Montejo in 1- 2 weeks antibiotics per wound culture pain management as needed continue medical management okay from surgical standpoint for discharge with wound care clinic follow-up Dr. Montejo has seen and examined pt, agrees with above. Admission and Anticipated Discharge Date Admission Date: October 17, 2022 Subjective still having alot of pain in axilla no fevers or chills wound nurse just changed dressing and no packing was found Physical Exam Constitutional: WD/WN, vitals as above no acute distress and not ill appearing Skin: no rashes, warm and dry Right axilla with optifoam dressing on just placed so did not removed. Wound picture reviewed. Incisions closed, mild eryhtmea but no surrounding spreading erythema. Results & Data ([facility]) Vital Signs (Past 12 Hours) Vital Signs Temp Pulse Pulse Resp BP Pulse Ox O2 Del Method 10/20/22 08:00 Room Air 10/20/22 07:11 36.9 C 83 16 137/75 95 Room Air 10/20/22 06:05 97 H 145/69 H 10/20/22 02:07 79 131/79 10/20/22 00:53 205/84 H 10/20/22 00:54 84 205/84 H 10/20/22 00:43 78 197/81 H Laboratory Results 10/20/22 10/19/22 10/19/22 Range/Units 08:14 20:40 16:58 POC Glucose 119 H 80 93 (70-99) mg/dl 10/19/22 Range/Units 11:48 POC Glucose 101 H (70-99) mg/dl Microbiology 10/18/22 10:36 Gram Stain - Final Axilla,Right Aerobic and Anaerobic Culture - Preliminary Staph aureus MRSA 10/18/22 10:36 Gram Stain - Final Axilla,Right Aerobic and Anaerobic Culture - Preliminary Staph aureus MRSA 10/18/22 10:34 Gram Stain - Final Axilla,Right Aerobic and Anaerobic Culture - Preliminary Staph aureus MRSA 10/18/22 13:49 Aerobic Blood Culture - Preliminary Blood No growth in Aerobic bottle after 24 hours. Anaerobic Blood Culture - Final 10/18/22 13:49 Aerobic Blood Culture - Preliminary Blood No growth in Aerobic bottle after 24 hours. Anaerobic Blood Culture - Final
[2022-10-20] MEDS: LORazepam 1 MG TAB PO PRN (14:00)
[2022-10-20] MEDS ORDERED: lisinopril 10 MG TAB PO STA (15:23)
[2022-10-20] MEDS ORDERED: lisinopril 10 MG TAB PO SCH (15:30)
[2022-10-28 04:17] LABS: Creatinine, Random Urine 45 mg/dL (20-275); Total Metanephrine 559 mcg/g cr (149-603)
--- NOTE | 2022-10-29 22:45 | Discharge Summary ---
Date of Service October 20, 2022 Admission HPI Per Admitting Provider Mariana is a 57 F with history of insomnia, internal jugular vein thromboembolism, left great toe amputation, iron deficiency anemia, T2DM, chronic pain syndrome, gastroparesis, esophagitis, prior tobacco use, PAD, prior MRSA infection, anxiety, emphysema, diabetic peripheral neuropathy, depression, coronary artery atherosclerosis, and back pain who presents for evaluation of vomiting and axillary infection. Patient notes that 1 month ago she developed pain in her right axilla, at this time, she thought the pain was from a pimple and left it alone. Over the last month, the pain and swelling in her axilla continued to progress. She was evaluated in the ER 10/02 and ultimately was discharged with Doxycycline, she completed the course without resolution. Patient presented at the recommendation of her PCP as she has been experiencing worsening emesis and diarrhea for the last two days, ontop of the worsening pain in her axilla. She presented afebrile, but tachycardic and hypertensive. Patient does note a longstanding history of chest pain, dyspnea, abdominal pain (from gastroparesis), headaches, lightheadedness and back pain that wax and wane, she notes no acute changes in regards to these symptoms. She endorses subjective fevers and sweats over the last two days. She has experienced no changes in urination. There has been no blood or mucous in her emesis or diarrhea. LER Course: She was treated with IV fluids IV pain medication, IV antiemetics, and IV antibiotics (Clindamycin). Bedside I&D was recommended, patient declined and requested to be evaluated by General Surgery. Patient was evaluated by general surgery and incision and drainage was planned for tomorrow morning. General surgery requested Ciprofloxacin/Flagyl as antibiotic regimen prior to surgery. Principal Diagnosis axilary abscess Discharge Exam Patient awake alert appropriate. She had bandaging on her right axilla. Heart was regular lungs were clear. Her distal extremity on the right showed her BKA stump to be in good condition her left cannot be viewed as she had SCDs on. Neurologically intacted. Discharge Data Allergies Allergy/AdvReac Type Severity Reaction Status Date / Time morphine Allergy Severe blisters Verified 10/17/22 16:49 in mouth Sulfa (Sulfonamide Allergy Severe rash/swelli Verified 10/17/22 16:49 Antibiotics) ng amoxicillin [From Augmentin] Allergy Intermediate itching/power Verified 10/17/22 16:49 h ceftriaxone [From Rocephin] Allergy Intermediate Hives Verified 10/17/22 16:49 clavulanic acid Allergy Intermediate itching/power Verified 10/17/22 16:49 [From Augmentin] h erythromycin base Allergy Intermediate Hives Verified 10/17/22 16:49 iron [From Venofer] Allergy Intermediate Hypertensio Verified 10/17/22 16:49 n vancomycin Allergy Intermediate YULIYA Verified 10/17/22 16:49 SYNDROME---CAN TAKE IF VERY SLOW DRIP. adhesive AdvReac Intermediate DERMABOND Verified 10/20/22 00:59 excoriates skin Consultations 10/17/22 17:57 ED Decision to Admit Stat Procedures Performed Operation Date: 10/18/22 07:00 Actual Procedures p Right Axillary Abscess Incision and Drainage - Yovani Montejo MD Ordered Studies 10/17/22 13:21 CT abd pelvis wo con Stat CT head/brain wo con Stat 10/17/22 13:41 US extremity non-vascular ltd Stat 10/19/22 11:31 US duplex renal artery Routine Hospital Course (1) Abscess of right axilla: Patient had abscess in her right axilla which required incise and drainage. Patient is on Cipro metronidazole this will be continued. Pending culture evaluation. Patient pain improved over course of hospital stay, transition to PO pain meds as described in the discharge instructions. Will continue antibiotics as described below. (2) Diabetes mellitus type 2, uncontrolled: Chronic diabetes mellitus uncontrolled with endorgan damage including peripheral artery disease with status post right BKA and previous left foot osteomyelitis with toe amputations. Given her perioperative status remains on basal bolus insulin therapy Besides her peripheral neuropathy and peripheral artery disease gastroparesis is also an endorgan issue of this patient's complicated diabetes management at (3) Chronic pain syndrome: Chronic uncontrolled patient's pain always is an issue postoperatively using parenteral pain medications at this time (4) Iron deficiency anemia: Patient is not anemic but likely has poor absorptive issues with iron iron levels will be checked in the morning (5) History of tobacco use: Tobacco cessation counseling is offered (6) Depression: Patient suffers from significant anxiety and depression typically on sertraline ropinirole (7) Hypertensive urgency, malignant: Blood pressure in 230 range systolically. will order renal doppler ultrasound for possible Renal artery stenosis: this was negative. awaiting urine metanephrines Headache improved with BP meds. Added BP meds to her outpatient regimen as described in her discharge instructions. Will defer further management to her PCP. Explained importance of following discharge instructions, patient showed understanding. She is aware of risks of not taking her medications as prescribed. Total Time Total Time Spent Total Time Spent (In Minutes): 32 Discharge Plan Discharge Items Patient Disposition: Home - Self-Care Reason For Visit: AXILLARY INFECTION Discharge Diagnosis: axillary infection. Condition on Discharge: Good Activity: Resume your previous activity Non-emergency contact: Primary Care Provider Call non-emergency contact if: you have any medication questions Follow-up/Referrals: Vince Vernon DO [Primary Care Provider] - Diet: Carb Consistent or DM2 and Low Sodium (2gm) Addtl Attending Provider Instructions: Recommend followup with PCP in 1-2 week. Recommend followup with wound care. continue antibiotics tonight. Continue pain medicine as prescribed. Take your antibiotic tomorrow morning. If you do not take your antibiotic, your infection may worsen. In regards to your blood pressure, your blood pressure has improved with adding lisinopril and amlodipine. Though I agree it is not at goal, it is moving in the right direction. We will increase your dose further today. So at home, you will be on lisinopril 20 mg daily in the morning with your metoprolol which will be increased to 75 mg in the morning. Amlodipine takes a few days to kick in so this will gently improve your blood pressure. Amlodipine will be taken at bedtime starting tomorrow. As mentioned in the room we also checked for causes of your high blood pressure. The urine metanephrines is pending, however, we ruled out any narrowing in your renal artery that could explain this high blood pressure. It has been a pleasure taking care of you. Pending Studies at Discharge: No Stand-Alone Forms: My [facility], Pain - Opioid Pain Management, Smoking Cessation Medications and DC Order Prescriptions: New ondansetron HCl 4 mg tablet 4 mg PO Q8H PRN (Reason: nausea and vomiting) Qty: 20 0RF oxycodone 5 mg tablet 5 mg PO Q6H PRN (Reason: pain) Qty: 20 0RF lisinopril 20 mg tablet 20 mg PO DAILY Qty: 30 0RF amlodipine 2.5 mg tablet 2.5 mg PO PM Qty: 30 0RF Continued sertraline 50 mg Tablet 50 mg PO HS Qty: 30 0RF Rx Instructions: x 6 days then increase to 50mg at bedtime oxycodone-acetaminophen 5-325 mg tablet 2 tab PO Q4H PRN (Reason: Pain) ropinirole 2 mg Tablet 4 mg PO HS cyclobenzaprine 10 mg tablet 10 mg PO TID lorazepam [Ativan] 1 mg tablet 1 mg PO TID PRN (Reason: Anxiety) zolpidem 10 mg tablet 10 mg PO HS PRN (Reason: Sleep) Rx Instructions: do not take within 3 hours of opiod pain med insulin lispro 100 unit/mL insulin pen 5 unit SUBCUT TIDM Rx Instructions: plus sliding scale insulin glargine [Lantus Solostar U-100 Insulin] 100 unit/mL (3 mL) insulin pen 40 unit SUBCUT HS Changed metoprolol succinate [Toprol XL] 50 mg tablet extended release 24 hr 75 mg PO QAM 30 Days Qty: 45 0RF Discharge Orders: Discharge Order (Routine); Ordered 10/20/22 Ordered By: Ricardo Nava/Other Patient Handouts: Controlling High Blood Pressure Admission Data Admit Date/Time: 10/17/22 19:09 Attending Provider: Ricardo Hernadez Admit Provider: Janel Blanton Primary Care Provider: Vince Vernon Other Providers: Sajan Allan Other Interventions: Discharge Summary Assessment (RN) Last Done: 10/20/22 16:18 Coding Level of Care Code 76920 INP/OBS DISCH >30 MIN Diagnoses Abscess of right axilla L02.411 Diabetes mellitus type 2, uncontrolled E11.65 Chronic pain syndrome G89.4 Iron deficiency anemia D50.9 History of tobacco use Z87.891 Depression F32.9 Hypertensive urgency, malignant I16.0
== END 2022-10-20 16:30 | disposition home or self-care (01) | DRG 603 ==
LOC: ED 12:54 → 3E 19:09 → SUATTDRO 19:09 → 3E 21:05
DX: Z88.1 Allergy status to other antibiotic agents; R11.10 Vomiting, unspecified; L02.411 Cutaneous abscess of right axilla; Z86.14 Personal history of Methicillin resistant Staphylococcus aureus infection; B95.62 Methicillin resistant Staphylococcus aureus infection as the cause of diseases classified elsewhere; E11.42 Type 2 diabetes mellitus with diabetic polyneuropathy; D50.9 Iron deficiency anemia, unspecified; E11.51 Type 2 diabetes mellitus with diabetic peripheral angiopathy without gangrene; J43.9 Emphysema, unspecified; Z88.5 Allergy status to narcotic agent; G47.00 Insomnia, unspecified; I16.0 Hypertensive urgency; Z89.422 Acquired absence of other left toe(s); Z79.4 Long term (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; F41.8 Other specified anxiety disorders; G89.4 Chronic pain syndrome; F17.210 Nicotine dependence, cigarettes, uncomplicated; R19.7 Diarrhea, unspecified; K59.00 Constipation, unspecified; Z88.2 Allergy status to sulfonamides; I10 Essential (primary) hypertension; Z89.511 Acquired absence of right leg below knee; E11.43 Type 2 diabetes mellitus with diabetic autonomic (poly)neuropathy

== ENCOUNTER 2023-05-18 08:51 | Inpatient (IN) ==
--- NOTE | 2023-05-18 09:17 | Emergency Department Note ---
History of Present Illness General Chief complaint: Infection Stated complaint: INFECTION, VOMITING, LIGHT HEADED, WEAK, POS C-DIF Time Seen by Provider: 05/18/23 09:14 History of Present Illness Maximum Pain Intensity: 8 This is a 57-year-old female that presents to the emergency department via private vehicle with complaints of "infection, vomiting, lightheaded, weak, possible C. difficile". The patient notes that she was admitted here recently and discharged and was home a few days and now notes return of symptoms. She notes pain to her left second toe, right groin and overall is not feeling well. She notes ongoing nausea, vomiting and now diarrhea. She notes foul-smelling diarrhea. No chest pain or shortness of breath. She notes that she currently is on oral clindamycin. She is concerned she may have C. difficile noting history of C. difficile and now foul-smelling diarrhea. Home Medications Medication Instructions Recorded Confirmed Type ropinirole 2 mg tablet 4 mg PO HS 10/19/20 05/18/23 History insulin lispro 100 unit/mL 5 unit subcut TIDM 03/08/22 05/18/23 History subcutaneous pen zolpidem 10 mg tablet 10 mg PO HS PRN Sleep 03/08/22 05/18/23 History oxycodone-acetaminophen 5 mg-325 2 tab PO Q4H PRN Severe Pain 10/02/22 05/18/23 History mg tablet (Scale Score 7-10) insulin glargine 100 unit/mL (3 10 unit subcut DAILY 10/17/22 05/18/23 History mL) subcutaneous pen (Lantus Solostar U-100 Insulin) albuterol sulfate 90 mcg/actuation 2 puff inhalation Q6 PRN Shortness 05/08/23 05/18/23 History aerosol inhaler Of Breath Or Wheezing alprazolam 1 mg tablet 1 mg PO TID PRN Anxiety 05/08/23 05/18/23 History cyclobenzaprine 10 mg tablet 10 mg PO AMPM 05/08/23 05/18/23 History docusate sodium 100 mg capsule 100 mg PO BID 05/08/23 05/18/23 History gentamicin 0.1 % topical ointment 1 applic topical DAILY 05/08/23 05/18/23 History lisinopril 10 mg tablet 10 mg PO DAILY 05/08/23 05/18/23 History metoprolol succinate 50 mg 50 mg PO QAM 05/08/23 05/18/23 History tablet,extended release 24 hr (Toprol XL) ondansetron HCl 4 mg tablet 4 mg PO HS PRN Nausea 05/08/23 05/18/23 History pantoprazole 40 mg tablet,delayed 40 mg PO BID 05/08/23 05/18/23 History release prazosin 1 mg capsule 1 mg PO TID 05/08/23 05/18/23 History clopidogrel 75 mg tablet (Plavix) 75 mg PO DAILY #30 tabs 05/10/23 05/18/23 Rx prochlorperazine maleate 5 mg 5 mg PO Q6H PRN Nausea 05/18/23 05/18/23 History tablet Allergies Allergy/AdvReac Type Severity Reaction Status Date / Time morphine Allergy Severe blisters Verified 05/18/23 11:52 in mouth Sulfa (Sulfonamide Allergy Severe rash/swelli Verified 05/18/23 11:52 Antibiotics) ng amoxicillin [From Augmentin] Allergy Intermediate itching/power Verified 05/18/23 11:52 h ceftriaxone [From Rocephin] Allergy Intermediate Hives Verified 05/18/23 11:52 clavulanic acid Allergy Intermediate itching/power Verified 05/18/23 11:52 [From Augmentin] h erythromycin base Allergy Intermediate Hives Verified 05/18/23 11:52 iron [From Venofer] Allergy Intermediate Hypertensio Verified 05/18/23 11:52 n vancomycin Allergy Intermediate YULIYA Verified 05/18/23 11:52 SYNDROME---CAN TAKE IF VERY SLOW DRIP. adhesive AdvReac Intermediate DERMABOND Verified 05/18/23 11:52 excoriates skin Past Med/Surg History Medical History Abdominal pain Acidosis, lactic Acute dehydration 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 No issues per anesthesia postop progress note. Anemia Benzodiazepine dependence Benzodiazepine withdrawal CAD (coronary artery disease) Cellulitis Chronic back pain Chronic pain syndrome Costochondritis COVID-19 Depression Diabetes mellitus type 2, uncontrolled Diabetic neuropathy Diabetic peripheral neuropathy Diastolic CHF DM2 (diabetes mellitus, type 2) IDDM, A1c 07/2021-11% Esophagitis determined by endoscopy Gastritis Gastroenteritis Gastroparesis GIB (gastrointestinal bleeding) History of amputation of great toe History of tobacco use HTN (hypertension) Hyperlipidemia Hypertriglyceridemia Hypomagnesemia Hyponatremia Infection of left great toe due to methicillin resistant Staphylococcus aureus (MRSA) Insomnia Insulin dependent diabetes mellitus Iron deficiency anemia Nonobstructive atherosclerosis of coronary artery Numbness of lower extremity Opiate abuse, continuous Opiate dependence Opioid dependence Osteomyelitis of great toe of left foot Peripheral neuropathy Restless leg syndrome Right second toe ulcer Seizures Sepsis Shortness of breath Surgical History History of esophagogastroduodenoscopy (EGD) History of lumbar surgery History of right below knee amputation (12/22/21) Right Below Knee Amputation(Right) - Davon Good MD, FACS Family History Mother , age 63 Myocardial infarction Father , age 68 or 69 Myocardial infarction Brother S/P CABG (coronary artery bypass graft) Sister Myocardial infarction x 3; she is 57yo Social History Smoking Status: Former smoker Tobacco Type: Cigarettes packs per day: 0.5; Cigarettes Per Day: 20; Second Hand Exposure: No; Do You Dip or Chew Tobacco: No; Hx Alcohol Use: No Hx Substance Use: Yes Prescribed Medications: Marijuana Last Used Substance: Days (ago) Last Used Substance Other:: Medical marijuana Substance Use Type Other:: medical marijuana Preferred Language: Belarusian Communication Ability: Effective Visual Impairment: No Limitations Hearing Ability: Normal Daytime Caregiver Required: No Beliefs That Will Affect Care: None marital status: Current Living Situation: Spouse current occupational status: unemployed 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 Other Information That Helps Us Care for You: No other: raising a grandchild as well; lives in [place] Feels Safe at Home: Yes Safety Concerns: Feels Safe At This Time Diet: diabetic and low salt during the past year weight has: remained stable Assistive Devices: Bedside Commode, Walker and Wheelchair Review of Systems A total of 10 systems reviewed and were otherwise negative Physical Exam Vital Signs Vital Signs - 24 hr 05/18/23 08:56 05/18/23 10:15 05/18/23 10:37 Temperature 37.1 C Temperature Source Temporal Artery Scan Pulse Rate 113 H 106 H 109 H Respiratory Rate 18 19 Respiratory Effort / Characteristics Non-Labored Spontaneous Respiratory Depth Normal Respiratory Pattern Regular Blood Pressure 133/76 130/83 Blood Pressure Mean 95 98 Blood Pressure Position Sitting Pulse Oximetry 100 96 Oxygen Delivery Method Room Air Room Air Sepsis Recent Fever Within 48 Hours No Sepsis New/Unexplained Change in Mental Status N/A Sepsis Action Taken by Nursing No Action Required VITAL SIGNS - Vital signs and nursing notes were reviewed. Stable and afebrile. GENERAL -57-year-old female appearing her stated age who is in no acute distress. Communicates well with provider and answers questions appropriately. SKIN -dorsal aspect of the left second toe reveals an erythematous wound. There is no purulence. Right groin region normal to inspection without evidence of e rythema or edema. No fluctuance. HEAD - NC/AT. EYES - PERRL with EOMI bilaterally. Sclera anicteric. EARS - No deformities of external structures noted on gross examination bilaterally. NOSE - Midline and without cyanosis. No epistaxis or purulent drainage noted. MOUTH/OROPHARYNX - Without perioral cyanosis. NECK - Neck with FROM. No nuchal rigidity. LUNGS - Chest wall symmetric without accessory muscle use, intercostals retractions, or central cyanosis. Normal vesicular breath sounds CTA B/L. No wheezes, rales, or rhonchi appreciated. CARDIAC - RRR ABDOMEN - Abdominal contour normal without pulsations or visible masses. BS normoactive all four quadrants. No tenderness, palpable masses, hepatosplenomegaly, or ascites noted. EXTREMITIES - No clubbing or peripheral cyanosis. R BKA noted. L 2nd toe TTP noted. +5/5 strength noted in UE/LE bilaterally. NEUROLOGIC - Cranial nerves II through XII grossly intact. PSYCH - A&O, and cooperates fully with examiner. Pt is very pleasant and in teracts well with examiner. Course Administered Medications Cyclobenzaprine HCl (Cyclobenzaprine Hcl 10 Mg Tab) 10 mg PO BID RICKY Stop: 06/17/23 14:59 Last Admin: 05/18/23 20:56 Dose: 10 mg Documented By: Admin: 05/18/23 15:45 Dose: 10 mg Documented By: JONATHAN Docusate Sodium (Docusate Sodium 100 Mg Cap) 100 mg PO BID RICKY Stop: 06/17/23 20:59 Last Admin: 05/18/23 20:57 Dose: Not Given Documented By: KSRiver Hydromorphone HCl (Hydromorphone Inj 1 Mg/Ml Syringe) 1 mg IV Q3H PRN PRN Reason: Pain Stop: 06/01/23 14:32 Last Admin: 05/18/23 20:55 Dose: 1 mg Documented By: KSRiver Admin: 05/18/23 17:37 Dose: 1 mg Documented By: GIOVANI Prochlorperazine 10 mg/ (Syringe) 10 mls @ 5 mls/min IV Q6H PRN PRN Reason: Nausea And Vomiting Stop: 06/17/23 14:32 Last Admin: 05/18/23 16:29 Dose: 5 mls/min Documented By: JONATHAN Lactated Ringer's (Lr) 1,000 mls @ 125 mls/hr IV .Q8H RICKY Stop: 05/19/23 22:32 Last Admin: 05/18/23 15:44 Dose: 125 mls/hr Documented By: JONATHAN Insulin Aspart (Insulin Aspart Per Unit Charge) 0 units SC ACHS RICKY Stop: 06/17/23 20:59 Last Admin: 05/18/23 20:55 Dose: 2 units Documented By: KSRiver Co-signed By: SHERI Insulin Glargine (Lantus Per Unit Charge) 10 units SQ HS RICKY Stop: 06/17/23 20:59 Last Admin: 05/18/23 20:55 Dose: 10 units Documented By: KSRiver Co-signed By: SHERI Pantoprazole Sodium (Pantoprazole 40 Mg Tab) 40 mg PO BID RICKY Stop: 06/17/23 20:59 Last Admin: 05/18/23 20:57 Dose: 40 mg Documented By: ORQUIDEA Prazosin HCl (Prazosin Hcl 1 Mg Cap) 1 mg PO TID RICKY Stop: 06/17/23 14:32 Last Admin: 05/18/23 20:57 Dose: 1 mg Documented By: Admin: 05/18/23 15:44 Dose: 1 mg Documented By: JONATHAN Ropinirole HCl (Ropinirole Hcl 2 Mg Tablet) 4 mg PO HS RICKY Stop: 06/17/23 20:59 Last Admin: 05/18/23 20:57 Dose: 4 mg Documented By: ORQUIDEA Discontinued Medications Aviles Syrup (Aviles Syrup 5 Ml Udp) 5 ml PO ONE STA Stop: 05/18/23 12:43 Last Admin: 05/18/23 14:21 Dose: 5 ml Documented By: JONATHAN Hydromorphone HCl (Hydromorphone Inj 0.5 Mg/0.5 Ml Syr) 0.5 mg IV NOW STA Stop: 05/18/23 09:33 Last Admin: 05/18/23 10:39 Dose: 0.5 mg Documented By: GUILLERMO Hydromorphone HCl (Hydromorphone Inj 0.5 Mg/0.5 Ml Syr) 0.25 mg IV NOW STA Stop: 05/18/23 11:54 Last Admin: 05/18/23 12:20 Dose: 0.25 mg Documented By: JONATHAN Hydromorphone HCl (Hydromorphone Inj 1 Mg/Ml Syringe) 1 mg IV NOW STA Stop: 05/18/23 14:11 Last Admin: 05/18/23 14:17 Dose: 1 mg Documented By: JONATHAN Sodium Chloride (Nss) 1,000 mls @ 999 mls/hr IV .Q1H1M RICKY Stop: 05/18/23 10:30 Last Infusion: 05/18/23 12:50 Dose: 0 mls/hr Documented By: Admin: 05/18/23 10:35 Dose: 999 mls/hr Documented By: GUILLERMO Prochlorperazine (Compazine) 1 mls @ 1 mls/min IV ONE ONE Stop: 05/18/23 09:33 Last Admin: 05/18/23 10:35 Dose: 1 mls/min Documented By: GUILLERMO Vancomycin HCl 1,500 mg/ (Sodium Chloride) 530 mls @ 150 mls/hr IV NOW STA Stop: 05/18/23 13:15 Last Infusion: 05/18/23 15:24 Dose: 0 mls/hr Documented By: Admin: 05/18/23 11:06 Dose: 150 mls/hr Documented By: JONATHAN Cefepime HCl (Maxipime) 2,000 mg in 20 mls @ 5 mls/min IV NOW STA; Protocol Stop: 05/18/23 10:54 Last Admin: 05/18/23 11:06 Dose: 5 mls/min Documented By: JONATHAN Vancomycin HCl (Vancomycin Hcl 125 Mg/2.5ml Soln) 125 mg PO ONE STA Stop: 05/18/23 12:43 Last Admin: 05/18/23 14:21 Dose: 125 mg Documented By: JONATHAN Medical Decision Making Laboratory Data 05/18/23 10:29 05/18/23 10:29 Lab Results 05/18/23 05/18/23 05/18/23 Range/Units 10: 10: 10:29 WBC 21.23 H (4.8-10.8) K/ul RBC 5.33 (4.20-5.40) M/uL Hgb 15.3 (12.0-16.0) g/dl Hct 45.2 (37.0-47.0) % MCV 84.8 (80.0-100.0) fL MCH 28.7 (25.0-34.0) pg MCHC 33.8 (32.0-36.0) g/dL RDW Std Deviation 41.2 (36.4-46.3) fL RDW Coeff of Maria Del Carmen 13.4 (11.5-14.5) % Plt Count 401 H (130-400) K/uL MPV 9.7 (9.4-12.4) fL Immature Gran % (Auto) 0.5 % Neut % (Auto) 83.5 % Lymph % (Auto) 11.0 % Hand % (Auto) 4.3 % Eos % (Auto) 0.3 % Baso % (Auto) 0.4 % Neut # (Auto) 17.74 H (1.40-6.50) K/uL Lymph # (Auto) 2.33 (1.20-3.40) K/uL Hand # (Auto) 0.92 H (0.11-0.59) K/uL Eos # (Auto) 0.06 (0.00-0.50) K/uL Baso # (Auto) 0.08 (0.00-0.20) K/uL Immature Gran # (Auto) 0.10 (0.01-0.20) K/uL Sodium 134 L (136-145) mmol/L Potassium 3.9 (3.5-5.1) mmol/L Chloride 101 (98-107) mmol/L Carbon Dioxide 21 (21-32) mmol/L Anion Gap 12 H (3-11) BUN 35 H (6-23) mg/dl Creatinine 0.83 (0.6-1.2) mg/dl Est Cr Clr Drug Dosing 66.0 ml/min Est GFR ( Amer) 90.1 ml/min Est GFR (Non-Af Amer) 77.7 ml/min BUN/Creatinine Ratio 42.2 H (10-20) Glucose 196 H (70-99(Fasting)) mg/dl Lactate 2.7 H* (0.4-2.0) mmol/L Calcium 10.0 (8.6-10.3) mg/dl Magnesium 2.0 (1.7-2.4) mg/dl Total Bilirubin 0.7 (0.2-1.0) mg/dl Direct Bilirubin 0.1 (0-0.2) mg/dl AST 10 L (13-39) U/L ALT 11 (7-52) U/L Alkaline Phosphatase 87 (34-104) U/L Total Protein 8.3 (6.0-8.3) gm/dl Albumin 5.0 (3.4-5.0) gm/dl Procalcitonin (0-0.5) ng/ml 05/18/23 05/18/23 Range/Units 10:29 12:31 WBC (4.8-10.8) K/ul RBC (4.20-5.40) M/uL Hgb (12.0-16.0) g/dl Hct (37.0-47.0) % MCV (80.0-100.0) fL MCH (25.0-34.0) pg MCHC (32.0-36.0) g/dL RDW Std Deviation (36.4-46.3) fL RDW Coeff of Maria Del Carmen (11.5-14.5) % Plt Count (130-400) K/uL MPV (9.4-12.4) fL Immature Gran % (Auto) % Neut % (Auto) % Lymph % (Auto) % Hand % (Auto) % Eos % (Auto) % Baso % (Auto) % Neut # (Auto) (1.40-6.50) K/uL Lymph # (Auto) (1.20-3.40) K/uL Hand # (Auto) (0.11-0.59) K/uL Eos # (Auto) (0.00-0.50) K/uL Baso # (Auto) (0.00-0.20) K/uL Immature Gran # (Auto) (0.01-0.20) K/uL Sodium (136-145) mmol/L Potassium (3.5-5.1) mmol/L Chloride (98-107) mmol/L Carbon Dioxide (21-32) mmol/L Anion Gap (3-11) BUN (6-23) mg/dl Creatinine (0.6-1.2) mg/dl Est Cr Clr Drug Dosing ml/min Est GFR ( Amer) ml/min Est GFR (Non-Af Amer) ml/min BUN/Creatinine Ratio (10-20) Glucose (70-99(Fasting)) mg/dl Lactate 2.0 (0.4-2.0) mmol/L Calcium (8.6-10.3) mg/dl Magnesium (1.7-2.4) mg/dl Total Bilirubin (0.2-1.0) mg/dl Direct Bilirubin (0-0.2) mg/dl AST (13-39) U/L ALT (7-52) U/L Alkaline Phosphatase (34-104) U/L Total Protein (6.0-8.3) gm/dl Albumin (3.4-5.0) gm/dl Procalcitonin 0.09 (0-0.5) ng/ml Imaging Data Radiologist's Impression: Chest X-Ray 05/18/23 09:17 SINGLE VIEW CHEST CLINICAL HISTORY: Sepsis FINDINGS: An AP, portable, upright chest radiograph is compared to study dated 05/08/2023. A right-sided central venous infusion port has been removed. The cardiomediastinal silhouette is unremarkable. The lungs and pleural spaces are clear. No pneumothorax is seen. The bony thorax is grossly intact. IMPRESSION: No active disease in the chest. ACT 112: Negative or not required by law. Electronically signed by: Finn Bradshaw M.D. 05/18/2023 10:00 AM Venous Doppler Study 05/18/23 09:34 US venous doppler LE RT HISTORY: 57 years-old Female R groin pain acute pain and swelling of the right lower leg COMPARISON: Duplex venous Doppler study 06/06/2022 TECHNIQUE: Multiple real-time sonographic images of the right lower extremity deep venous structures were obtained assessing grayscale appearance, color and spectral flow. FINDINGS: Normal flow, compressibility, phasicity and augmentation. IMPRESSION: No sonographic evidence of deep venous thrombosis. ACT 112: Negative or not required by law. The above report was generated using voice recognition software. It may contain grammatical, syntax or spelling errors. Electronically signed by: Puneet Howard M.D. 05/18/2023 12:00 PM Toe X-Ray 05/18/23 09:37 XR toe(s) LT min 2V CLINICAL HISTORY: L 2nd toe infection, pain TECHNIQUE: 3 views of the left second digit were obtained. Comparison: Comparison is made to left foot radiograph 05/08/2023 FINDINGS: There is no evidence of erosive change to suggest osteomyelitis. Joint spaces are well-preserved. Soft tissue swelling is seen about the second digit. IMPRESSION: Soft tissue swelling without underlying erosive change to suggest osteomyelitis. ACT 112: Negative or not required by law. Electronically signed by: Neil Mendieta M.D. 05/18/2023 10:02 AM MDM Narrative Patient was seen and evaluated as above in room A02 triage. Review was performed of nursing notes and vital signs. I did review pertinent previous visits and patient history. After obtaining a thorough history and physical examination the above work up was performed. Patient presents to us today for evaluation of overall feeling unwell, concerned she may have an infection which there is a wound to the left second toe, vomiting and now diarrhea. She is on oral clindamycin and is concerned about C. difficile. Patient appears to be in pain. Options of care were discussed with the patient. IV access was difficult but successfully established. Labs were drawn. Leukocytosis 21.23 which may be secondary to infection or acute dehydration. There is no anemia. Mild elevation of platelet count at 401. Mild hyponatremia 134. BUN at 35. Glucose 196. Procalcitonin within normal range. X-ray of the left second toe, right lower extremity venous Doppler study as well as a single chest x-ray was obtained. These were essentially negative for any emergent process compared to previous. Broad-spectrum antibiotics were ordered based on careful review of her previous cultures. Patient has tolerated both vancomycin before as well as cefepime which were ordered without issue. Case discussed with hospitalist service. Please refer to further documentation regarding her stay. She was also given IV fluids here noting the elevated lactate and concern for infection. Will note that the patient's elevated lactate returned to normal at the 2-hour asa following IV fluids. GCS: 15 In the evaluation and treatment of this patient the following differential diagnoses were entertained: Sepsis, C. difficile colitis, dehydration, electrolyte disturbance, left second toe infection, right lower extremity DVT, among others Impression & Plan Ulcer of second toe of left foot, Diarrhea, Intractable nausea and vomiting, Leukocytosis, Poor venous access Discharge Plan Visit Data Chief Complaint: Infection Stated Complaint: INFECTION, VOMITING, LIGHT HEADED, WEAK, POS C-DIF ED Provider: Mathew Decker ED Midlevel Provider: Wei Allred Discharge Problem: Ulcer of second toe of left foot, Diarrhea, Intractable nausea and vomiting, Leukocytosis, Poor venous access Patient Disposition: Admitted As Inpatient Condition: Good Discharge Instructions Interventions: ED Discharge Assessment Last Done: 05/18/23 14:33
[2023-05-18] MEDS ORDERED: SODIUM CHLORIDE 0.9% 1,000 ML IV SCH (09:30)
[2023-05-18] MEDS ORDERED: PROCHLORPERAZINE 1 ML IV ONE (09:32)
[2023-05-18] MEDS ORDERED: HYDROmorphone INJ 0.5 MG/0.5 ML SYR IV STA ×2 (09:32→11:53)
[2023-05-18] MEDS ORDERED: VANCOMYCIN HCL 1,500 MG in SODIUM CHLORIDE 0.9% 500 ML IV STA (09:44)
--- NOTE | 2023-05-18 10:02 | XRay Report ---
SINGLE VIEW CHEST CLINICAL HISTORY: Sepsis FINDINGS: An AP, portable, upright chest radiograph is compared to study dated 05/08/2023. A right-luis f ed central venous infusion port has been removed. The cardiomediastinal silhouette is unremarkable. T he lungs and pleural spaces are clear. No pneumothorax is seen. The bony thorax is grossly intact. IMPRESSION: No active disease in the chest. ACT 112: Negative or not required by law. Electronically signed by: Finn Bradshaw M.D. 05/18/2023 10:00 AM
--- NOTE | 2023-05-18 10:03 | XRay Report ---
XR toe(s) LT min 2V CLINICAL HISTORY: L 2nd toe infection, pain TECHNIQUE: 3 views of the left second digit were obtained. Comparison: Comparison is made to left foot radiograph 05/08/2023 FINDINGS: There is no evidence of erosive change to suggest osteomyelitis. Joint spaces are well-preserved. Sof t tissue swelling is seen about the second digit. IMPRESSION: Soft tissue swelling without underlying erosive change to suggest osteomyelitis. ACT 112: Negative or not required by law. Electronically signed by: Neil Mendieta M.D. 05/18/2023 10:02 AM
[2023-05-18 10:46] LABS: Basophils # (auto) 0.08 K/uL (0.00-0.20); Basophils % (auto) 0.4 %; Eosinophils # (auto) 0.06 K/uL (0.00-0.50); Eosinophils % (auto) 0.3 %; Hematocrit (blood only) 45.2 % (37.0-47.0); Hemoglobin 15.3 g/dl (12.0-16.0); Immature Granulocytes % (auto) 0.5 %; Lymphocytes # (auto) 2.33 K/uL (1.20-3.40); Mean Corpuscular Hemoglobin 28.7 pg (25.0-34.0); Mean Corpuscular Hgb Conc 33.8 g/dL (32.0-36.0); Mean Corpuscular Volume 84.8 fL (80.0-100.0); Mean Platelet Volume 9.7 fL (9.4-12.4); Monocytes # (auto) 0.92 K/uL (0.11-0.59); Monocytes % (auto) 4.3 %; Neutrophils # (auto) 17.74 K/uL (1.40-6.50); Neutrophils % (auto) 83.5 %; Platelet Count 401 K/uL (130-400); RDW Coefficient of Variation 13.4 % (11.5-14.5); RDW Standard Deviation 41.2 fL (36.4-46.3); Red Blood Count 5.33 M/uL (4.20-5.40); White Blood Count 21.23 K/ul (4.8-10.8)
[2023-05-18] MEDS ORDERED: CEFEPIME 2,000 MG/20 ML VIAL IV STA (10:51)
[2023-05-18 11:13] LABS: BUN Creatinine Ratio 42.2 (10-20); Bilirubin Direct 0.1 mg/dl (0-0.2); Bilirubin,Total 0.7 mg/dl (0.2-1.0); Est GFR (African American) 90.1 ml/min; Est GFR (Non-African American) 77.7 ml/min; Potassium 3.9 mmol/L (3.5-5.1); Total Protein 8.3 gm/dl (6.0-8.3)
--- NOTE | 2023-05-18 12:02 | Ultrasound Report ---
US venous doppler LE RT HISTORY: 57 years-old Female R groin pain acute pain and swelling of the right lower leg COMPARISON: Duplex venous Doppler study 06/06/2022 TECHNIQUE: Multiple real-time sonographic images of the right lower extremity deep venous structures were obtained assessing grayscale appearance, color and spectral flow. FINDINGS: Normal flow, compressibility, phasicity and augmentation. IMPRESSION: No sonographic evidence of deep venous thrombosis. ACT 112: Negative or not required by law. The above report was generated using voice recognition software. It may contain grammatical, syntax o r spelling errors. Electronically signed by: Puneet Howard M.D. 05/18/2023 12:00 PM
--- NOTE | 2023-05-18 12:27 | History & Physical Report ---
Date of Service May 18, 2023 Assessment & Plan (1) Intractable nausea and vomiting: Plan: Repeated episodes suspected secondary to gastroparesis Compazine usually most effective therefore will continue with this Suspect this is the main reason for admission and cause of WBC although difficult to rule out infective cause of WBC (2) Diarrhea: Plan: Watery diarrhea per patient. Awaiting c. diff testing. Will start on prophylaxis PO vancomycin dosing pending testing. (3) Ulcer of second toe of left foot: Plan: Infection does not appear to be significantly worsening since her last admission Favor continuing her usual IV vancomycin per her surgeons recommendations from - planned for 4 weeks duration due to MRSA wound swab Of note MRSA bacteremia diagnosis from last admission was not correct after review of [place] notes, she just had a MRSA wound swab of her toe positive for MRSA (4) HTN (hypertension): Plan: Continue lisinopril, metoprolol succinate, hydralazine PRN for sBP > 180 (5) Insomnia: Plan: Continue routine home meds (6) Diabetes mellitus type 2, uncontrolled: Plan: HbA1C 7.9 Will continue regimen from last admission: Lantus 10 units HS Novolog: --Goal BSG Range: Low 110 mg/dL, High 140 mg/dL --Correction Factor: 40 mg/dL/unit --Carbohydrate ratio = 12 g/unit --BSGs ACHS if eating, q6h if npo (7) Gastroparesis: Plan VTE Prophylaxis - Lovenox 40mg SQ daily Diet - clears, advance as tolerated Disposition - admit to med/surg Admission and Anticipated Discharge Date Admission Date: May 18, 2023 History of Present Illness Chief Complaint: Right groin pain, Left 2nd toe pain, nausea, vomiting, diarrhea Primary Care Provider: DO Mariana Henao Inch is a 57 year old female who presents to the ER with right groin pain, left 2nd toe pain, nausea, vomiting and watery diarrhea. She was recently on May 11 with similar symptoms. At that time blood cultures were negative, Rivas line was removed as it was causing her pain and antibiotics were transitioned to clindamycin after MRSA bacteremia was ruled out. After discharge she had slowly worsening nausea and vomiting. She reports for the last two days she has been unable to keep anything down. Diarrhea for last 2 days has been yellow, strong odor and watery. She feels increased pain in her 2nd toe and increased erythema. No fever or chills. Allergies Allergy/AdvReac Type Severity Reaction Status Date / Time morphine Allergy Severe blisters Verified 05/18/23 11:52 in mouth Sulfa (Sulfonamide Allergy Severe rash/swelli Verified 05/18/23 11:52 Antibiotics) ng amoxicillin [From Augmentin] Allergy Intermediate itching/power Verified 05/18/23 11:52 h ceftriaxone [From Rocephin] Allergy Intermediate Hives Verified 05/18/23 11:52 clavulanic acid Allergy Intermediate itching/power Verified 05/18/23 11:52 [From Augmentin] h erythromycin base Allergy Intermediate Hives Verified 05/18/23 11:52 iron [From Venofer] Allergy Intermediate Hypertensio Verified 05/18/23 11:52 n vancomycin Allergy Intermediate YULIYA Verified 05/18/23 11:52 SYNDROME---CAN TAKE IF VERY SLOW DRIP. adhesive AdvReac Intermediate DERMABOND Verified 05/18/23 11:52 excoriates skin Home Medications Medication Instructions Recorded Confirmed Type ropinirole 2 mg tablet 4 mg PO HS 10/19/20 05/18/23 History insulin lispro 100 unit/mL 5 unit subcut TIDM 03/08/22 05/18/23 History subcutaneous pen zolpidem 10 mg tablet 10 mg PO HS PRN Sleep 03/08/22 05/18/23 History oxycodone-acetaminophen 5 mg-325 2 tab PO Q4H PRN Severe Pain 10/02/22 05/18/23 History mg tablet (Scale Score 7-10) insulin glargine 100 unit/mL (3 10 unit subcut DAILY 10/17/22 05/18/23 History mL) subcutaneous pen (Lantus Solostar U-100 Insulin) albuterol sulfate 90 mcg/actuation 2 puff inhalation Q6 PRN Shortness 05/08/23 05/18/23 History aerosol inhaler Of Breath Or Wheezing alprazolam 1 mg tablet 1 mg PO TID PRN Anxiety 05/08/23 05/18/23 History cyclobenzaprine 10 mg tablet 10 mg PO AMPM 05/08/23 05/18/23 History docusate sodium 100 mg capsule 100 mg PO BID 05/08/23 05/18/23 History gentamicin 0.1 % topical ointment 1 applic topical DAILY 05/08/23 05/18/23 History lisinopril 10 mg tablet 10 mg PO DAILY 05/08/23 05/18/23 History metoprolol succinate 50 mg 50 mg PO QAM 05/08/23 05/18/23 History tablet,extended release 24 hr (Toprol XL) ondansetron HCl 4 mg tablet 4 mg PO HS PRN Nausea 05/08/23 05/18/23 History pantoprazole 40 mg tablet,delayed 40 mg PO BID 05/08/23 05/18/23 History release prazosin 1 mg capsule 1 mg PO TID 05/08/23 05/18/23 History clopidogrel 75 mg tablet (Plavix) 75 mg PO DAILY #30 tabs 05/10/23 05/18/23 Rx prochlorperazine maleate 5 mg 5 mg PO Q6H PRN Nausea 05/18/23 05/18/23 History tablet Past Med/Surg History Medical History Abdominal pain Acidosis, lactic Acute dehydration 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 No issues per anesthesia postop progress note. Anemia Benzodiazepine dependence Benzodiazepine withdrawal CAD (coronary artery disease) Cellulitis Chronic back pain Chronic pain syndrome Costochondritis COVID-19 Depression Diabetes mellitus type 2, uncontrolled Diabetic neuropathy Diabetic peripheral neuropathy Diastolic CHF DM2 (diabetes mellitus, type 2) IDDM, A1c 07/2021-11% Esophagitis determined by endoscopy Gastritis Gastroenteritis Gastroparesis GIB (gastrointestinal bleeding) History of amputation of great toe History of tobacco use HTN (hypertension) Hyperlipidemia Hypertriglyceridemia Hypomagnesemia Hyponatremia Infection of left great toe due to methicillin resistant Staphylococcus aureus (MRSA) Insomnia Insulin dependent diabetes mellitus Iron deficiency anemia Nonobstructive atherosclerosis of coronary artery Numbness of lower extremity Opiate abuse, continuous Opiate dependence Opioid dependence Osteomyelitis of great toe of left foot Peripheral neuropathy Restless leg syndrome Right second toe ulcer Seizures Sepsis Shortness of breath Surgical History History of esophagogastroduodenoscopy (EGD) History of lumbar surgery History of right below knee amputation (12/22/21) Right Below Knee Amputation(Right) - Davon Good MD, FACS Family History Mother , age 63 Myocardial infarction Father , age 68 or 69 Myocardial infarction Brother S/P CABG (coronary artery bypass graft) Sister Myocardial infarction x 3; she is 57yo Social History Smoking Status: Former smoker Tobacco Type: Cigarettes packs per day: 0.5; Cigarettes Per Day: 20; Second Hand Exposure: No; Do You Dip or Chew Tobacco: No; Hx Alcohol Use: No Hx Substance Use: Yes Prescribed Medications: Marijuana Last Used Substance: Days (ago) Last Used Substance Other:: Medical marijuana Substance Use Type Other:: medical marijuana Preferred Language: Greek Communication Ability: Effective Visual Impairment: No Limitations Hearing Ability: Normal Guide [place] Required: No Beliefs That Will Affect Care: None marital status: Current Living Situation: Spouse current occupational status: unemployed 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 Other Information That Helps Us Care for You: No other: raising a grandchild as well; lives in [place] Feels Safe at Home: Yes Safety Concerns: Feels Safe At This Time Diet: diabetic and low salt during the past year weight has: remained stable Assistive Devices: Bedside Commode, Walker and Wheelchair Review of Systems Review of Systems: All systems reviewed & are unremarkable except as noted in HPI & below Physical Exam Constitutional: well developed and + acute distress (in pain); + not well nourished Eyes: PERRL, conjunctivae normal, anicteric sclerae Respiratory: normal respiratory effort, lungs clear to auscultation Cardiovascular: RRR, no murmur, no edema Vessels: dorsalis pedis pulses present (left); + posterior tibial pulses abnormal (unable to palpate) Gastrointestinal (Abdomen): Inspection/Auscultation: abdomen normal to inspection; abdomen not distended Percussion/Palpation: + abdomen tender (generalized) and abdomen soft; no guarding and abdomen not rigid Skin: ulcer in 2nd toe with healthy appearing underling tissue, mild erythema surrounding this ulcer (similar in appearance to last admission) No skin changes in right groin Neurologic: moves all extremities and awake; not confused Psychiatric: Orientation: alert and oriented x 3 Affect: + anxious affect and + tearful affect Genitourinary: no CVA tenderness Results & Data Results & Data Vital Signs (Past 12 Hours) Vital Signs Temp Pulse Resp BP Pulse Ox O2 Del Method 05/18/23 10:37 109 H 19 130/83 96 Room Air 05/18/23 10:15 106 H 05/18/23 08:56 37.1 C 113 H 18 133/76 100 Room Air Laboratory Results Abnormal lab results 05/18/23 05/18/23 05/18/23 Range/Units 10:29 10:29 10:29 WBC 21.23 H (4.8-10.8) K/ul Plt Count 401 H (130-400) K/uL Neut # (Auto) 17.74 H (1.40-6.50) K/uL D[place] # (Auto) 0.92 H (0.11-0.59) K/uL Sodium 134 L (136-145) mmol/L Anion Gap 12 H (3-11) BUN 35 H (6-23) mg/dl BUN/Creatinine Ratio 42.2 H (10-20) Glucose 196 H (70-99(Fasting)) mg/dl Lactate 2.7 H* (0.4-2.0) mmol/L AST 10 L (13-39) U/L Diagnostic Findings SINGLE VIEW CHEST CLINICAL HISTORY: Sepsis FINDINGS: An AP, portable, upright chest radiograph is compared to study dated 05/08/2023. A right-sided central venous infusion port has been removed. The cardiomediastinal silhouette is unremarkable. The lungs and pleural spaces are clear. No pneumothorax is seen. The bony thorax is grossly intact. IMPRESSION: No active disease in the chest. US venous doppler LE RT HISTORY: 57 years-old Female R groin pain acute pain and swelling of the right lower leg COMPARISON: Duplex venous Doppler study 06/06/2022 TECHNIQUE: Multiple real-time sonographic images of the right lower extremity deep venous structures were obtained assessing grayscale appearance, color and spectral flow. FINDINGS: Normal flow, compressibility, phasicity and augmentation. IMPRESSION: No sonographic evidence of deep venous thrombosis. XR toe(s) LT min 2V CLINICAL HISTORY: L 2nd toe infection, pain TECHNIQUE: 3 views of the left second digit were obtained. Comparison: Comparison is made to left foot radiograph 05/08/2023 FINDINGS: There is no evidence of erosive change to suggest osteomyelitis. Joint spaces are well-preserved. Soft tissue swelling is seen about the second digit. IMPRESSION: Soft tissue swelling without underlying erosive change to suggest osteomyelitis. Medications Administered ER Medications Given: Vancomycin 1500mg IV Normal saline 1000ml bolus Dilaudid 0.5mg IV Compazine 5mg Cefepime 2000mg IV ECG Rate (beats per minute): 111 Rhythm: sinus tachycardia Findings: no acute ischemic change Comparison ECG Date: from (08 May 2023) Change: no significant change Code Status & VTE Plan Code Status Full VTE Prophylaxis Plan VTE Prophylaxis will be ordered: Yes PG Care Time/CCT Total # of Minutes Spent Total Time Spent with Patient: Total time spent is greater than 50% in coordination of care (as documented) at patient's floor/unit and/or counseling patient: Coding Level of Care Code 03130 INT INP/OBS CARE 2/55MIN Diagnoses Intractable nausea and vomiting R11.2 Diarrhea R19.7 Ulcer of second toe of left foot L97.529 HTN (hypertension) I10 Insomnia G47.00 Diabetes mellitus type 2, uncontrolled E11.65 Gastroparesis K31.84
[2023-05-18] MEDS ORDERED: CHERRY SYRUP 5 ML UDP PO STA (12:42)
[2023-05-18] MEDS ORDERED: VANCOMYCIN HCL 125 MG/2.5ML SOLN PO STA (12:42)
[2023-05-18] MEDS ORDERED: HYDROmorphone INJ 1 MG/ML SYRINGE IV STA (14:10)
[2023-05-18] MEDS ORDERED: hydrALAZINE HCL 20 MG/ML VIAL IV PRN (14:33)
[2023-05-18] MEDS ORDERED: ONDANSETRON INJ 2 MG/ML 2 ML VIAL IV PRN (14:33)
--- NOTE | 2023-05-18 14:34 | Electrocardiogram Report ---
Test Reason : Blood Pressure : / mmHG Vent. Rate : 111 BPM Atrial Rate : 111 BPM P-R Int : 146 ms QRS Dur : 092 ms QT Int : 338 ms P-R-T Axes : 065 061 085 degrees QTc Int : 459 ms Sinus tachycardia Otherwise normal ECG When compared with ECG of 08-MAY-2023 13:37, No significant change was found Confirmed by Harvinder Guerra ([id number]) on 05/18/2023 2:34:10 PM Referred By: REFERRED SELF Confirmed By:Scot Guerra
[2023-05-18] MEDS: LACTATED RINGER'S 1,000 ML IV SCH ×2 (15:44→22:48)
[2023-05-18] MEDS: PRAZOSIN HCL 1 MG CAP PO SCH ×2 (15:44→20:57)
[2023-05-18] MEDS: CYCLOBENZAPRINE HCL 10 MG TAB PO SCH ×2 (15:45→20:56)
[2023-05-18] MEDS: PROCHLORPERAZINE 10 MG in SYRINGE 8 ML IV PRN (16:29)
[2023-05-18] MEDS: HYDROmorphone INJ 1 MG/ML SYRINGE IV PRN ×2 (17:37→20:55)
[2023-05-18] MEDS ORDERED: VANCOMYCIN CONSULT ACTIVE PRN (17:42)
[2023-05-18] MEDS ORDERED: CARBOHYDRATES FOR HYPOGLYCEMIA PO PRN (17:46)
[2023-05-18] MEDS ORDERED: DEXTROSE 50% 50 ML SYRINGE IV PRN (17:46)
[2023-05-18] MEDS ORDERED: GLUCOSE 10 TAB/TUBE PO PRN (17:46)
[2023-05-18] MEDS ORDERED: GLUCAGON FOR INJ 1 MG VIAL SQ PRN (17:46)
[2023-05-18] MEDS ORDERED: GLUCOSE 40% GEL 15 GM TUBE PO PRN (17:46)
--- NOTE | 2023-05-18 19:32 | Pharmacy Report ---
Pharmacy Vanc AUC Short Note - Date of Service May 18, 2023 - Assessment & Plan Assessment 57 year old F receiving vancomycin for empiric treatment. Day #1 of antimicrobial therapy: 05/18/23 Plan Vancomycin * Load: Vancomycin 1,500 mg IV once on 05/18/23 at 1106 * Maintenance: Vancomycin 750 mg IV q12h starting 05/18/23 at 2300 * AUC/CELSO is the preferred PK/PD target for vancomycin * AUC guided dosing is effective and associated with decreased risk of nephrot oxicity compared to traditional trough targets * Trough level of 15.2 mcg/mL is predicted to achieve target AUC/CELSO of 400-600 mg/L.hr and may be associated with a 10% risk of nephrotoxicity * Trough or random level ordered for: 05/20/23 at 1000 Pharmacy will continue to follow and will adjust dose/frequency as necessary. Thank you.
[2023-05-18] MEDS: LANTUS PER UNIT CHARGE SQ SCH (20:55)
[2023-05-18] MEDS: INSULIN ASPART PER UNIT CHARGE SC SCH (20:55)
[2023-05-18] MEDS: PANTOprazole 40 MG TAB PO SCH (20:57)
[2023-05-18] MEDS: rOPINIRole HCL 2 MG TABLET PO SCH (20:57)
[2023-05-18] MEDS: DOCUSATE SODIUM 100 MG CAP PO SCH (20:57)
[2023-05-18] MEDS: ZOLPIDEM TARTRATE 10 MG TAB PO PRN (22:48)
[2023-05-18] MEDS: VANCOMYCIN HCL 750 MG in SODIUM CHLORIDE 0.9% 250 ML IV SCH (22:48)
[2023-05-19] MEDS: HYDROmorphone INJ 1 MG/ML SYRINGE IV PRN ×6 (01:38→17:14)
[2023-05-19 06:40] LABS: Basophils # (auto) 0.05 K/uL (0.00-0.20); Basophils % (auto) 0.7 %; Eosinophils # (auto) 0.43 K/uL (0.00-0.50); Eosinophils % (auto) 5.6 %; Hematocrit (blood only) 34.5 % (37.0-47.0); Hemoglobin 11.8 g/dl (12.0-16.0); Immature Granulocytes # (auto) 0.03 K/uL (0.01-0.20); Immature Granulocytes % (auto) 0.4 %; Lymphocytes # (auto) 1.41 K/uL (1.20-3.40); Lymphocytes % (auto) 18.3 %; Mean Corpuscular Hemoglobin 28.6 pg (25.0-34.0); Mean Corpuscular Hgb Conc 34.2 g/dL (32.0-36.0); Mean Corpuscular Volume 83.5 fL (80.0-100.0); Mean Platelet Volume 9.6 fL (9.4-12.4); Monocytes # (auto) 0.67 K/uL (0.11-0.59); Monocytes % (auto) 8.7 %; Neutrophils % (auto) 66.3 %; Platelet Count 261 K/uL (130-400); RDW Coefficient of Variation 13.5 % (11.5-14.5); RDW Standard Deviation 40.9 fL (36.4-46.3); Red Blood Count 4.13 M/uL (4.20-5.40); White Blood Count 7.69 K/ul (4.8-10.8)
[2023-05-19 06:42] LABS: Appearance Urine Clear (Clear); Bilirubin Urine Negative (Negative); Blood Urine Negative (Negative); Color Urine Yellow; Glucose Urine UA Negative (Negative); Ketones Urine Negative (Negative); Leukocyte Esterase Urine Negative (Negative); Nitrite Urine Negative (Negative); Protein Urine Negative (Negative); Specific Gravity Urine 1.015 (1.000-1.030); Urobilinogen Urine Negative (Negative); pH Urine 5.5 (4.5-7.5)
[2023-05-19 07:19] LABS: BUN Creatinine Ratio 39.5 (10-20); Calcium 8.5 mg/dl (8.6-10.3); Creatinine Clr Calc Pharmacy 144.1 ml/min; Est GFR (African American) 135.3 ml/min; Est GFR (Non-African American) 116.8 ml/min; Potassium 3.7 mmol/L (3.5-5.1)
[2023-05-19] MEDS: lisinopril 10 MG TAB PO SCH (07:37)
[2023-05-19] MEDS: METOPROLOL SUCC 50MG EXT REL TAB PO SCH (07:37)
[2023-05-19] MEDS: INSULIN ASPART PER UNIT CHARGE SC SCH ×4 (08:15→20:26)
[2023-05-19] MEDS: ENOXAPARIN INJ 40 MG/0.4 ML SYR SQ SCH (08:26)
[2023-05-19] MEDS: PRAZOSIN HCL 1 MG CAP PO SCH ×3 (08:26→20:13)
[2023-05-19] MEDS: PANTOprazole 40 MG TAB PO SCH ×2 (08:26→20:14)
[2023-05-19] MEDS: CLOPIDOGREL BISULFATE 75 MG TAB PO SCH (08:26)
[2023-05-19] MEDS: CYCLOBENZAPRINE HCL 10 MG TAB PO SCH ×2 (08:26→20:15)
[2023-05-19] MEDS: VANCOMYCIN HCL 125 MG/2.5ML SOLN PO SCH (08:27)
[2023-05-19] MEDS: DOCUSATE SODIUM 100 MG CAP PO SCH ×2 (08:27→20:17)
[2023-05-19] MEDS: CHERRY SYRUP 5 ML UDP PO SCH (08:27)
[2023-05-19] MEDS: LACTATED RINGER'S 1,000 ML IV SCH ×2 (08:58→18:57)
[2023-05-19] MEDS: PROCHLORPERAZINE 10 MG in SYRINGE 8 ML IV PRN (09:56)
[2023-05-19] MEDS ORDERED: VANCOMYCIN HCL 1,500 MG in SODIUM CHLORIDE 0.9% 500 ML IV SCH (11:00)
[2023-05-19] MEDS: VANCOMYCIN HCL 750 MG in SODIUM CHLORIDE 0.9% 250 ML IV SCH (14:18)
[2023-05-19 14:37] LABS: Cdiff Toxin B Gene (2yr or >) Positive Cdiff Gene (Neg)
--- NOTE | 2023-05-19 14:37 | Hospitalist Progress Note ---
Date of Service May 19, 2023 Assessment & Plan (1) Intractable nausea and vomiting: Plan: Repeated episodes suspected secondary to gastroparesis Compazine usually most effective therefore will continue with this Suspect this is the main reason for admission and cause of WBC although difficult to rule out infective cause of WBC White count is normalized today which makes infection highly unlikely (2) Diarrhea: Plan: Watery diarrhea per patient. Awaiting c. diff testing. Will start on prophylaxis PO vancomycin dosing pending testing. C. difficile has not been sent or collected as the patient did not have any diarrhea since admission (3) Ulcer of second toe of left foot: Plan: Infection does not appear to be significantly worsening since her last admission Favor continuing her usual IV vancomycin per her surgeons recommendations from - planned for 4 weeks duration due to MRSA wound swab Of note MRSA bacteremia diagnosis from last admission was not correct after review of [place] notes, she just had a MRSA wound swab of her toe positive for MRSA (4) HTN (hypertension): Plan: Continue lisinopril, metoprolol succinate, hydralazine PRN for sBP > 180 (5) Insomnia: Plan: Continue routine home meds (6) Diabetes mellitus type 2, uncontrolled: Plan: HbA1C 7.9 Will continue regimen from last admission: Lantus 10 units HS Novolog: --Goal BSG Range: Low 110 mg/dL, High 140 mg/dL --Correction Factor: 40 mg/dL/unit --Carbohydrate ratio = 12 g/unit --BSGs ACHS if eating, q6h if npo (7) Gastroparesis: Plan VTE Prophylaxis - Lovenox 40mg SQ daily Diet - clears, advance as tolerated Admission and Anticipated Discharge Date Admission Date: May 18, 2023 Subjective patient feels well other than complaining of pain. Pain mostly in the left second toe but also has generalized body aches. Per nurse, patient has been requesting Dilaudid [id number] on the dot Review of Systems Review of Systems: All systems reviewed & are unremarkable except as noted in Subjective Physical Exam Physical Exam: General: Awake, conversant Heart: S1, S2/regular rate and rhythm, no murmur rubs or gallops Lungs: Clear to auscultation bilaterally. Normal effort Abdomen: Soft/nontender/nondistended. No hepatosplenomegaly Extremities: No clubbing/cyanosis. Status post left great toe amputation. Left second toe ulcer noted without cellulitis around Behavior: Appropriate, cooperative Results & Data Results & Data Vital Signs (Past 12 Hours) Vital Signs Temp Pulse Resp BP Pulse Ox O2 Del Method 05/19/23 07:28 36.6 C 94 H 18 180/92 H 99 Room Air PG Care Time/CCT Total # of Minutes Spent Total Time Spent with Patient: Total time spent is greater than 50% in coordination of care (as documented) at patient's floor/unit and/or counseling patient: Coding Level of Care Code 25284 SUB INP/OBS CARE 2/35MIN Diagnoses Intractable nausea and vomiting R11.2 Diarrhea R19.7 Ulcer of second toe of left foot L97.529 HTN (hypertension) I10 Insomnia G47.00 Diabetes mellitus type 2, uncontrolled E11.65 Gastroparesis K31.84
[2023-05-19 15:04] LABS: Adenovirus F 40/41 PCR Not Detected (NotDetected); Astrovirus PCR Not Detected (NotDetected); Campylobacter PCR Not Detected (NotDetected); Cryptosporidium PCR Not Detected (NotDetected); Cyclospora cayetanensis PCR Not Detected (NotDetected); Entamoeba histolytica PCR Not Detected (NotDetected); Enteroaggregative E.coli(EAEC) Not Detected (NotDetected); Enterotoxigenic E.coli (ETEC) Not Detected (NotDetected); Giardia lamblia PCR Not Detected (NotDetected); Norovirus GI/GII PCR Not Detected (NotDetected); Plesiomonas shigelloides PCR Not Detected (NotDetected); Rotavirus A PCR Not Detected (NotDetected); Salmonella PCR Not Detected (NotDetected); Sapovirus PCR Not Detected (NotDetected); Shiga-like Toxin E.coli (STEC) Not Detected (NotDetected); Shigella/Enteroinvasive E.coli Not Detected (NotDetected); Vibrio cholerae PCR Not Detected (NotDetected); Vibrio species PCR Not Detected (NotDetected); Yersinia enterocolitica PCR Not Detected (NotDetected)
[2023-05-19 15:23] LABS: Enteropathogenic E.coli (EPEC) DETECTED (NotDetected)
[2023-05-19 15:41] LABS: Cdiff Antigen Positive; Cdiff Toxin A+B Negative Cdiff Toxin (Negative)
[2023-05-19] MEDS: ALPRAZolam 0.5 MG TABLET PO PRN (15:47)
[2023-05-19] MEDS ORDERED: ONDANSETRON 4 MG OD TAB PO PRN (19:12)
[2023-05-19] MEDS ORDERED: HYDROmorphone HCL 2 MG TAB PO PRN (19:12)
[2023-05-19] MEDS: ZOLPIDEM TARTRATE 10 MG TAB PO PRN ×2 (20:14→21:08)
[2023-05-19] MEDS: rOPINIRole HCL 2 MG TABLET PO SCH (20:15)
[2023-05-19] MEDS: LANTUS PER UNIT CHARGE SQ SCH (20:27)
[2023-05-19] MEDS: DOXYCYCLINE HYCLATE 100 MG CAP PO SCH (21:41)
[2023-05-20] MEDS: HYDROmorphone HCL 2 MG TAB PO PRN ×5 (01:24→20:02)
[2023-05-20] MEDS: ALPRAZolam 0.5 MG TABLET PO PRN ×3 (02:58→19:59)
[2023-05-20] MEDS ORDERED: GABAPENTIN 300 MG CAP PO STA (05:43)
[2023-05-20] MEDS ORDERED: HYDROmorphone INJ 1 MG/ML SYRINGE IM ONE (06:05)
[2023-05-20 06:26] LABS: Creatinine Clr Calc Pharmacy 130.4 ml/min; Est GFR (African American) 130.9 ml/min
[2023-05-20] MEDS ORDERED: INFLUENZA VIRUS QUADRIVALENT VACCINE (IIV4) 0.5 ML SYR IM ONE (08:00)
[2023-05-20] MEDS: CLOPIDOGREL BISULFATE 75 MG TAB PO SCH (08:16)
[2023-05-20] MEDS: lisinopril 10 MG TAB PO SCH (08:16)
[2023-05-20] MEDS: METOPROLOL SUCC 50MG EXT REL TAB PO SCH (08:16)
[2023-05-20] MEDS: DOXYCYCLINE HYCLATE 100 MG CAP PO SCH ×2 (08:16→20:01)
[2023-05-20] MEDS: CYCLOBENZAPRINE HCL 10 MG TAB PO SCH ×2 (08:16→19:59)
[2023-05-20] MEDS: ENOXAPARIN INJ 40 MG/0.4 ML SYR SQ SCH (08:17)
[2023-05-20] MEDS: PRAZOSIN HCL 1 MG CAP PO SCH ×3 (08:17→20:02)
[2023-05-20] MEDS: DOCUSATE SODIUM 100 MG CAP PO SCH ×2 (08:17→20:00)
[2023-05-20] MEDS: PANTOprazole 40 MG TAB PO SCH ×2 (08:17→20:01)
[2023-05-20] MEDS: INSULIN ASPART PER UNIT CHARGE SC SCH ×4 (08:23→22:25)
[2023-05-20] MEDS: CHERRY SYRUP 5 ML UDP PO SCH (08:27)
[2023-05-20] MEDS: VANCOMYCIN HCL 125 MG/2.5ML SOLN PO SCH (08:28)
[2023-05-20] MEDS ORDERED: VANCOMYCIN LEVEL ONE (09:30)
[2023-05-20] MEDS ORDERED: lisinopril 20 MG TAB PO ONE (09:45)
--- NOTE | 2023-05-20 11:42 | Discharge Summary ---
Date of Service May 20, 2023 Admission HPI Per Admitting Provider Mariana Witt is a 57 year old female who presents to the ER with right groin pain, left 2nd toe pain, nausea, vomiting and watery diarrhea. She was recently on May 11 with similar symptoms. At that time blood cultures were negative, Rivas line was removed as it was causing her pain and antibiotics were transitioned to clindamycin after MRSA bacteremia was ruled out. After discharge she had slowly worsening nausea and vomiting. She reports for the last two days she has been unable to keep anything down. Diarrhea for last 2 days has been yellow, strong odor and watery. She feels increased pain in her 2nd toe and increased erythema. No fever or chills. Discharge Exam General: Awake, conversant Heart: S1, S2/regular rate and rhythm, no murmur rubs or gallops Lungs: Clear to auscultation bilaterally. Normal effort Abdomen: Soft/nontender/nondistended. No hepatosplenomegaly Extremities: No clubbing/cyanosis. Status post left great toe amputation. Left second toe ulcer noted without cellulitis around Behavior: Appropriate, cooperative Discharge Data Allergies Allergy/AdvReac Type Severity Reaction Status Date / Time morphine Allergy Severe blisters Verified 05/18/23 11:52 in mouth Sulfa (Sulfonamide Allergy Severe rash/swelli Verified 05/18/23 11:52 Antibiotics) ng amoxicillin [From Augmentin] Allergy Intermediate itching/power Verified 05/18/23 11:52 h ceftriaxone [From Rocephin] Allergy Intermediate Hives Verified 05/18/23 11:52 clavulanic acid Allergy Intermediate itching/power Verified 05/18/23 11:52 [From Augmentin] h erythromycin base Allergy Intermediate Hives Verified 05/18/23 11:52 iron [From Venofer] Allergy Intermediate Hypertensio Verified 05/18/23 11:52 n vancomycin Allergy Intermediate YULIYA Verified 05/18/23 11:52 SYNDROME---CAN TAKE IF VERY SLOW DRIP. adhesive AdvReac Intermediate DERMABOND Verified 05/18/23 11:52 excoriates skin Consultations 05/18/23 10:59 ED Decision to Admit Stat Ordered Studies 05/18/23 09:34 US venous doppler LE RT Stat Hospital Course (1) Intractable nausea and vomiting: Repeated episodes suspected secondary to gastroparesis Compazine usually most effective therefore will continue with this Suspect this is the main reason for admission and cause of WBC although difficult to rule out infective cause of WBC White count is normalized today which makes infection highly unlikely (2) Diarrhea: Watery diarrhea per patient. Awaiting c. diff testing. Will start on prophylaxis PO vancomycin dosing pending testing. C. difficile has not been sent or collected as the patient did not have any diarrhea since admission (3) Ulcer of second toe of left foot: Infection does not appear to be significantly worsening since her last admission Favor continuing her usual IV vancomycin per her surgeons recommendations from - planned for 4 weeks duration due to MRSA wound swab Of note MRSA bacteremia diagnosis from last admission was not correct after review of [place] notes, she just had a MRSA wound swab of her toe positive for MRSA (4) HTN (hypertension): Continue lisinopril, metoprolol succinate, hydralazine PRN for sBP > 180 (5) Insomnia: Continue routine home meds (6) Diabetes mellitus type 2, uncontrolled: HbA1C 7.9 Will continue regimen from last admission: Lantus 10 units HS Novolog: --Goal BSG Range: Low 110 mg/dL, High 140 mg/dL --Correction Factor: 40 mg/dL/unit --Carbohydrate ratio = 12 g/unit --BSGs ACHS if eating, q6h if npo (7) Gastroparesis: Plan VTE Prophylaxis - Lovenox 40mg SQ daily Diet - clears, advance as tolerated Discharge Plan Discharge Items Patient Disposition: Against Medical Advice Reason For Visit: DIARRHEA WITH INTRACTABLE NAUSEA,VOMITING,POSS SEP Condition on Discharge: Good Non-emergency contact: Primary Care Provider Follow-up/Referrals: Vince Vernon DO [Primary Care Provider] - Pending Studies at Discharge: No Stand-Alone Forms: My [facility] Medications and DC Order Prescriptions: No Action oxycodone-acetaminophen 5-325 mg tablet 2 tab PO Q4H PRN (Reason: Severe Pain (Scale Score 7-10)) Rx Instructions: right ankle and joints of right foot pain prochlorperazine maleate 5 mg tablet 5 mg PO Q6H PRN (Reason: Nausea) ropinirole 2 mg Tablet 4 mg PO HS zolpidem 10 mg tablet 10 mg PO HS PRN (Reason: Sleep) Rx Instructions: do not take within 3 hours of opiod pain med insulin lispro 100 unit/mL insulin pen 5 unit SUBCUT TIDM Rx Instructions: plus sliding scale insulin glargine [Lantus Solostar U-100 Insulin] 100 unit/mL (3 mL) insulin pen 10 unit SUBCUT DAILY metoprolol succinate [Toprol XL] 50 mg tablet extended release 24 hr 50 mg PO QAM albuterol sulfate 90 mcg/actuation HFA aerosol inhaler 2 puff INHALATION Q6 PRN (Reason: Shortness Of Breath Or Wheezing) prazosin 1 mg capsule 1 mg PO TID lisinopril 10 mg tablet 10 mg PO DAILY gentamicin 0.1 % ointment 1 applic TOPICAL DAILY cyclobenzaprine 10 mg tablet 10 mg PO AMPM ondansetron HCl 4 mg tablet 4 mg PO HS PRN (Reason: Nausea) pantoprazole 40 mg tablet,delayed release (DR/EC) 40 mg PO BID docusate sodium 100 mg Capsule 100 mg PO BID alprazolam 1 mg tablet 1 mg PO TID PRN (Reason: Anxiety) clopidogrel [Plavix] 75 mg tablet 75 mg PO DAILY Qty: 30 0RF Discharge Orders: Left Against Medical Advice (Routine); Ordered 05/20/23 Ordered By: Tiffanie Rosen Admission Data Admit Date/Time: 05/18/23 12:41 Attending Provider: Tiffanie Rosen Admit Provider: Silvestre Best Primary Care Provider: Vince Vernon Other Providers: Silvestre Best Coding Diagnoses Intractable nausea and vomiting R11.2 Diarrhea R19.7 Ulcer of second toe of left foot L97.529 HTN (hypertension) I10 Insomnia G47.00 Diabetes mellitus type 2, uncontrolled E11.65 Gastroparesis K31.84
--- NOTE | 2023-05-20 14:48 | Hospitalist Progress Note ---
Date of Service May 20, 2023 Assessment & Plan (1) Intractable nausea and vomiting: Plan: Repeated episodes suspected secondary to gastroparesis Compazine usually most effective therefore will continue with this Suspect this is the main reason for admission and cause of WBC although difficult to rule out infective cause of WBC White count is normalized within 24 hours which makes infection highly unlikely (2) Diarrhea: Plan: Watery diarrhea per patient. She was started on prophylaxis PO vancomycin dosing pending testing. C. difficile. C. difficile toxin positive. Also stool EPEC positive. Clinically she is getting better. Diarrhea has resolved. Continue supportive treatment. (3) Ulcer of second toe of left foot: Plan: Infection does not appear to be significantly worsening since her last admission Of note MRSA bacteremia diagnosis from last admission was not correct after review of [place] notes, she just had a MRSA wound swab of her toe positive for MRSA I plan to discontinue IV vancomycin as I am not convinced that there is any infection. She has completed the course of p.o. clindamycin. I suspect that the patient may be rubbing her toe, making it bleed. No cellulitis or any signs of infection otherwise. Podiatry may be involved tomorrow. (4) HTN (hypertension): Plan: Continue lisinopril, metoprolol succinate, hydralazine PRN for sBP > 180 (5) Insomnia: Plan: Continue routine home meds (6) Diabetes mellitus type 2, uncontrolled: Plan: HbA1C 7.9 Will continue regimen from last admission: Lantus 10 units HS Novolog: --Goal BSG Range: Low 110 mg/dL, High 140 mg/dL --Correction Factor: 40 mg/dL/unit --Carbohydrate ratio = 12 g/unit --BSGs ACHS if eating, q6h if npo (7) Gastroparesis: Plan VTE Prophylaxis - Lovenox 40mg SQ daily Diet - clears, advance as tolerated Patient would like a different provider starting tomorrow. She fired me as I decided not to give her a new IV line and did not address pain to her content. Admission and Anticipated Discharge Date Admission Date: May 18, 2023 Subjective Patient lost her IV yesterday. She has been off of IV vancomycin since. She has also been off of IV Dilaudid since. Reviewed her records. Spoke to Dr. Best who admitted her. Noted that the patient was supposed to be on p.o. clindamycin for 7 days since her last discharge on 05/11. The only reason Dr. Best started her on IV vancomycin was because she had an elevated white count and was complaining of foot pain. The leukocytosis resolved (went down from 21- 7) within 24 hours which speaks against any infectious etiology. Decided to keep her off of IV vancomycin and keep the IV out. However patient is not happy with not getting IV Dilaudid. She has been crying and yelling at the staff ever since her IV came off. She has been blaming the staff. No fever, no diarrhea today. Review of Systems Review of Systems: All systems reviewed & are unremarkable except as noted in Subjective Physical Exam Physical Exam: General: Awake, conversant Heart: S1, S2/regular rate and rhythm, no murmur rubs or gallops Lungs: Clear to auscultation bilaterally. Normal effort Abdomen: Soft/nontender/nondistended. No hepatosplenomegaly Extremities: No clubbing/cyanosis. Status post left great toe amputation. Left second toe ulcer noted without cellulitis around Behavior: Appropriate, cooperative Results & Data Results & Data Vital Signs (Past 12 Hours) Vital Signs Temp Pulse Pulse Resp BP BP Pulse Ox 05/20/23 10:26 87 188/84 H 05/20/23 07:48 36.5 C 87 16 206/83 H 187/80 H 100 O2 Del Method 05/20/23 10:26 05/20/23 07:48 Room Air Laboratory Results Abnormal lab results 05/19/23 05/19/23 05/19/23 Range/Units 12:31 16:33 20:11 Creatinine (0.6-1.2) mg/dl POC Glucose 132 H 147 H (70-99) mg/dl Stool EPEC (PCR) DETECTED A* (NotDetected) Random Vancomycin (10-20) mcg/ml 05/20/23 05/20/23 05/20/23 Range/Units 05:25 05:25 07:46 Creatinine 0.42 L (0.6-1.2) mg/dl POC Glucose 122 H (70-99) mg/dl Stool EPEC (PCR) (NotDetected) Random Vancomycin 6.6 L (10-20) mcg/ml 05/20/23 Range/Units 11:30 Creatinine (0.6-1.2) mg/dl POC Glucose 112 H (70-99) mg/dl Stool EPEC (PCR) (NotDetected) Random Vancomycin (10-20) mcg/ml PG Care Time/CCT Total # of Minutes Spent Total Time Spent with Patient: Total time spent is greater than 50% in coordination of care (as documented) at patient's floor/unit and/or counseling patient: Coding Level of Care Code 01010 SUB INP/OBS CARE 2/35MIN Diagnoses Intractable nausea and vomiting R11.2 Diarrhea R19.7 Ulcer of second toe of left foot L97.529 HTN (hypertension) I10 Insomnia G47.00 Diabetes mellitus type 2, uncontrolled E11.65 Gastroparesis K31.84
[2023-05-20] MEDS ORDERED: hydrALAZINE 10 MG TAB PO STA (19:33)
[2023-05-20] MEDS ORDERED: hydrALAZINE 10 MG TAB PO PRN (19:38)
[2023-05-20] MEDS: ZOLPIDEM TARTRATE 10 MG TAB PO PRN (19:59)
[2023-05-20] MEDS: rOPINIRole HCL 2 MG TABLET PO SCH (20:01)
[2023-05-20] MEDS ORDERED: HYDROmorphone INJ 1 MG/ML SYRINGE IM PRN (22:04)
[2023-05-20] MEDS: HYDROmorphone INJ 1 MG/ML SYRINGE IM PRN (22:23)
[2023-05-20] MEDS: LANTUS PER UNIT CHARGE SQ SCH (22:25)
--- NOTE | 2023-05-20 23:06 | Communication Note ---
Date of Service: May 20, 2023 Received notice patient threatening to leave AMA. Patient states she needs pain medication via IV, states the oral and IM dilaudid are not able to help her pain, states she just wanted some IV pain medication until the morning when she has an appointment with her PCP. Discussed with patient again that IV team was not able to get a line on her, she had refused a central line, we do not have options for IV pain medication for her at this time. Patient states her previous IV lines would all fall out after 1-2 days but insisted that they could still be placed and that the hospital was not trying hard enough. Patient stated that no one was caring for her appropriately in the hospital and no one cared that she was in pain, if she could not have IV pain medication she would rather be in pain at home. Discussed continuing patient's current oral vancomycin prophylaxis against c diff, patient states she's been on that medication for years and it did nothing, was not interested in continuing the medication. Patient stated she would call her to pick her up and wanted to leave AMA. Paperwork was provided for AMA. Patient's refused to pick patient up from hospital. Patient stated she was ok staying in hospital tonight and was willing to try IM dilaudid for pain relief. Nursing educated patient to avoid picking at the ulcer on her foot as it would aggravate the bleeding and pain.
[2023-05-21] MEDS: HYDROmorphone INJ 1 MG/ML SYRINGE IM PRN ×3 (02:35→13:57)
[2023-05-21] MEDS: ALPRAZolam 0.5 MG TABLET PO PRN ×2 (06:10→20:56)
--- NOTE | 2023-05-21 06:53 | Hospitalist Progress Note ---
Date of Service May 21, 2023 Assessment & Plan (1) Intractable nausea and vomiting: Plan: Repeated episodes suspected secondary to gastroparesis Compazine usually most effective therefore will continue with this Suspect this is the main reason for admission and cause of WBC although difficult to rule out infective cause of WBC White count is normalized within 24 hours which makes infection highly unlikely (2) Diarrhea: Plan: Watery diarrhea per patient. She was started on prophylaxis PO vancomycin dosing pending testing. C. difficile. C. difficile toxin positive. Also stool EPEC positive. Clinically she is getting better. Diarrhea has resolved. Continue supportive treatment. (3) Ulcer of second toe of left foot: Plan: Infection does not appear to be significantly worsening since her last admission Of note MRSA bacteremia diagnosis from last admission was not correct after review of [place] notes, she just had a MRSA wound swab of her toe positive for MRSA DC IV vancomycin. She has completed the course of p.o. clindamycin. I suspect that the patient may be rubbing her toe, making it bleed. Podiatry may be involved tomorrow. (4) HTN (hypertension): Plan: Continue lisinopril, metoprolol succinate, hydralazine PRN for sBP > 180 (5) Insomnia: Plan: Continue routine home meds (6) Diabetes mellitus type 2, uncontrolled: Plan: HbA1C 7.9 Will continue regimen from last admission: Lantus 10 units HS Novolog: --Goal BSG Range: Low 110 mg/dL, High 140 mg/dL --Correction Factor: 40 mg/dL/unit --Carbohydrate ratio = 12 g/unit --BSGs ACHS if eating, q6h if npo (7) Gastroparesis: Plan VTE Prophylaxis - Lovenox 40mg SQ daily Diet - clears, advance as tolerated Patient would like a different provider starting tomorrow. She fired me as I decided not to give her a new IV line and did not address pain to her content. Admission and Anticipated Discharge Date Admission Date: May 18, 2023 Supervising Physician Co-Signing Physician Notes I personally examined the patient and verified all tanner points of history and exam, discussed case, and agree with decision making with Dr Valderrama Toe looks worse to her than a week ago, notes a lot of pain. Vitals noted, in general she is awake and alert coloring, gets somewhat tearful. Left foot great toe missing, second toe with denuded ulceration, no real tracking erythema no thick exudate, a degree of a laceration on the ventral surface may be somewhat tender to palpation, I question if there is a little bit of crepitus distal in the soft tissue, definitely nothing overt nothing major, there is definitely no crepitus proximal, there is no tracking erythema. Foot wound/vascular insufficiency/toe ulcerationlocal wound care, continue ant ibiotics for now, no IV access is a little bit of an issue, discussed with IV team, and they note there is really been for months nothing that they could threadif she needs ongoing IV access will require surgical access. Ask podiatry for evaluationas I wonder if the toe to is salvageable given its bedside appearance, and the small degree of crepitus. Nausea and vomiting is resolved. Otherwise as above Subjective Pt IV access very difficult to obtain. IV team feels further attempts will be futile. Surgery consulted for possible port placement - this would be a necessity if surgery is indicated. No fever, no diarrhea today. Review of Systems Review of Systems: reviewed, per HPI Physical Exam Physical Exam: General: patient resting comfortably, NAD, non-toxic in appearance, AA&O x 4, answers questions appropriately and follows commands. Skin: warm, dry, intact HEENT: NC/AT, anicteric sclera, conjunctiva without injection, moist mucus mem branes, trachea midline, no thyromegaly, no JVD Heart: +S1/S2, regular, no m/r/g Lungs: equal air entry bilaterally, no rales/rhonchi/wheezes Abd: +BS, soft, NT/ND, no masses/organomegaly/ascites Ext: R leg amputation. L foot with great toe amputation. L 2nd toe edematous, skin sloughing, bleeding. Neuro: nonfocal, patient AA&O x 4, speech intact, no facial droop, moving all extremities on command. Results & Data Results & Data Vital Signs (Past 12 Hours) Vital Signs Temp Pulse Pulse Resp BP Pulse Ox O2 Del Method 05/20/23 20:57 83 20 128/84 100 Room Air 05/20/23 19:25 36.6 C 92 H 20 217/93 H 99 Room Air Resident Activity Tracking Resident Involvement: Resident Care Provided Care Provided: Adult Hospital Medicine
[2023-05-21] MEDS: PROCHLORPERAZINE MALEATE 5 MG TAB PO PRN (08:26)
[2023-05-21] MEDS: CHERRY SYRUP 5 ML UDP PO SCH (08:33)
[2023-05-21] MEDS: VANCOMYCIN HCL 125 MG/2.5ML SOLN PO SCH (08:33)
[2023-05-21] MEDS: PANTOprazole 40 MG TAB PO SCH ×2 (08:34→20:57)
[2023-05-21] MEDS: PRAZOSIN HCL 1 MG CAP PO SCH ×3 (08:34→20:57)
[2023-05-21] MEDS: DOCUSATE SODIUM 100 MG CAP PO SCH ×2 (08:34→20:56)
[2023-05-21] MEDS: ENOXAPARIN INJ 40 MG/0.4 ML SYR SQ SCH (08:35)
[2023-05-21] MEDS: METOPROLOL SUCC 50MG EXT REL TAB PO SCH (08:35)
[2023-05-21] MEDS: CLOPIDOGREL BISULFATE 75 MG TAB PO SCH (08:36)
[2023-05-21] MEDS: INSULIN ASPART PER UNIT CHARGE SC SCH ×4 (08:42→21:09)
[2023-05-21 08:48] LABS: Creatinine Clr Calc Pharmacy 133.6 ml/min; Est GFR (Non-African American) 113.9 ml/min
[2023-05-21] MEDS: CYCLOBENZAPRINE HCL 10 MG TAB PO SCH ×2 (09:30→20:56)
--- NOTE | 2023-05-21 18:57 | Billing Data ---
Date of Service May 21, 2023 Coding Level of Care Code 44214 SUB INP/OBS CARE MIN
[2023-05-21] MEDS: ZOLPIDEM TARTRATE 10 MG TAB PO PRN (20:56)
[2023-05-21] MEDS: rOPINIRole HCL 2 MG TABLET PO SCH (20:58)
[2023-05-21] MEDS: HYDROmorphone INJ 1 MG/ML SYRINGE IV PRN (20:58)
[2023-05-21] MEDS: LANTUS PER UNIT CHARGE SQ SCH (21:08)
--- NOTE | 2023-05-21 21:18 | Orthopedic Consultation ---
Date of Consultation May 21, 2023 Assessment & Plan (1) Ulcer of second toe of left foot: Patient seen and evaluated at bedside. There are no overt signs or symptoms of infection. There is no leukocytosis. There is concern Patient may be manipulating and worsening Left second toe wound. The wound was cleansed with saline. Adaptic and dressing applied to left second toe. I did review the need for Patient to keep dressing intact. Patient voices understanding. Thank you for involving me in the Patient's care and will continue to follow while in house. History of Present Illness Attending Physician: Jon Whaley DO History of Present Illness Patient is a 57 year old female who is seen at bedside for left second toe pain. Patient has an extensive past medical history and is well known to me from previous admission. Her pain has been very difficult to control in past admissions. She has history of chronic severe pain. She states her pain in her foot is currently 10/10. There is no leukocytosis noted upon her admission. Allergies Allergy/AdvReac Type Severity Reaction Status Date / Time morphine Allergy Severe blisters Verified 05/18/23 11:52 in mouth Sulfa (Sulfonamide Allergy Severe rash/swelli Verified 05/18/23 11:52 Antibiotics) ng amoxicillin [From Augmentin] Allergy Intermediate itching/power Verified 05/18/23 11:52 h ceftriaxone [From Rocephin] Allergy Intermediate Hives Verified 05/18/23 11:52 clavulanic acid Allergy Intermediate itching/power Verified 05/18/23 11:52 [From Augmentin] h erythromycin base Allergy Intermediate Hives Verified 05/18/23 11:52 iron [From Venofer] Allergy Intermediate Hypertensio Verified 05/18/23 11:52 n vancomycin Allergy Intermediate YULIYA Verified 05/18/23 11:52 SYNDROME---CAN TAKE IF VERY SLOW DRIP. adhesive AdvReac Intermediate DERMABOND Verified 05/18/23 11:52 excoriates skin Home Medications Medication Instructions Recorded Confirmed Type ropinirole 2 mg tablet 4 mg PO HS 10/19/20 05/18/23 History insulin lispro 100 unit/mL 5 unit subcut TIDM 03/08/22 05/18/23 History subcutaneous pen zolpidem 10 mg tablet 10 mg PO HS PRN Sleep 03/08/22 05/18/23 History oxycodone-acetaminophen 5 mg-325 2 tab PO Q4H PRN Severe Pain 10/02/22 05/18/23 History mg tablet (Scale Score 7-10) insulin glargine 100 unit/mL (3 10 unit subcut DAILY 10/17/22 05/18/23 History mL) subcutaneous pen (Lantus Solostar U-100 Insulin) albuterol sulfate 90 mcg/actuation 2 puff inhalation Q6 PRN Shortness 05/08/23 05/18/23 History aerosol inhaler Of Breath Or Wheezing alprazolam 1 mg tablet 1 mg PO TID PRN Anxiety 05/08/23 05/18/23 History cyclobenzaprine 10 mg tablet 10 mg PO AMPM 05/08/23 05/18/23 History docusate sodium 100 mg capsule 100 mg PO BID 05/08/23 05/18/23 History gentamicin 0.1 % topical ointment 1 applic topical DAILY 05/08/23 05/18/23 History lisinopril 10 mg tablet 10 mg PO DAILY 05/08/23 05/18/23 History metoprolol succinate 50 mg 50 mg PO QAM 05/08/23 05/18/23 History tablet,extended release 24 hr (Toprol XL) ondansetron HCl 4 mg tablet 4 mg PO HS PRN Nausea 05/08/23 05/18/23 History pantoprazole 40 mg tablet,delayed 40 mg PO BID 05/08/23 05/18/23 History release prazosin 1 mg capsule 1 mg PO TID 05/08/23 05/18/23 History clopidogrel 75 mg tablet (Plavix) 75 mg PO DAILY #30 tabs 05/10/23 05/18/23 Rx prochlorperazine maleate 5 mg 5 mg PO Q6H PRN Nausea 05/18/23 05/18/23 History tablet Patient History Medical History Abdominal pain Acidosis, lactic Acute dehydration 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 No issues per anesthesia postop progress note. Anemia Benzodiazepine dependence Benzodiazepine withdrawal CAD (coronary artery disease) Cellulitis Chronic back pain Chronic pain syndrome Costochondritis COVID-19 Depression Diabetes mellitus type 2, uncontrolled Diabetic neuropathy Diabetic peripheral neuropathy Diastolic CHF DM2 (diabetes mellitus, type 2) IDDM, A1c 07/2021-11% Esophagitis determined by endoscopy Gastritis Gastroenteritis Gastroparesis GIB (gastrointestinal bleeding) History of amputation of great toe History of tobacco use HTN (hypertension) Hyperlipidemia Hypertriglyceridemia Hypomagnesemia Hyponatremia Infection of left great toe due to methicillin resistant Staphylococcus aureus (MRSA) Insomnia Insulin dependent diabetes mellitus Iron deficiency anemia Nonobstructive atherosclerosis of coronary artery Numbness of lower extremity Opiate abuse, continuous Opiate dependence Opioid dependence Osteomyelitis of great toe of left foot Peripheral neuropathy Restless leg syndrome Right second toe ulcer Seizures Sepsis Shortness of breath Surgical History History of esophagogastroduodenoscopy (EGD) History of lumbar surgery History of right below knee amputation (12/22/21) Right Below Knee Amputation(Right) - Davon Good MD, FACS Family History Mother , age 63 Myocardial infarction Father , age 68 or 69 Myocardial infarction Brother S/P CABG (coronary artery bypass graft) Sister Myocardial infarction x 3; she is 57yo Social History Smoking Status: Former smoker Tobacco Type: Cigarettes packs per day: 0.5; Cigarettes Per Day: 20; Second Hand Exposure: No; Do You Dip or Chew Tobacco: No; Hx Alcohol Use: No Hx Substance Use: Yes Prescribed Medications: Marijuana Last Used Substance: Days (ago) Last Used Substance Other:: Medical marijuana Substance Use Type Other:: medical marijuana Preferred Language: Haitian Communication Ability: Effective Visual Impairment: No Limitations Hearing Ability: Normal Employment And Claims Aide Required: No Beliefs That Will Affect Care: None marital status: Current Living Situation: Spouse current occupational status: unemployed 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 Other Information That Helps Us Care for You: No other: raising a grandchild as well; lives in [place] Feels Safe at Home: Yes Safety Concerns: Feels Safe At This Time Diet: diabetic and low salt during the past year weight has: remained stable Assistive Devices: Walker and Wheelchair Review of Systems Review of Systems: All systems reviewed & are unremarkable except as noted in HPI & below Physical Exam Constitutional: cooperative and comfortable Eyes: normal visual cardozo by confrontation Neck: trachea midline Respiratory: normal respiratory effort Cardiovascular: Vessels: posterior tibial pulses present and dorsalis pedis pulses present Musculoskeletal: Extremities: + amputation noted (Right BKA) and + foot abnormality Left (Left hallux amputation) Skin: Partial thickness left second dorsal toe ulceration 1.5 x 1 x 0.1cm Neurologic: moves all extremities (Absent epicritic sensation.) Psychiatric: Orientation: alert and oriented x 3 Results & Data Vital Signs (Past 12 Hours) Vital Signs Temp Pulse Resp BP Pulse Ox O2 Del Method 05/21/23 14:44 36.7 C 82 16 169/95 H 100 Room Air
[2023-05-22] MEDS: HYDROmorphone INJ 1 MG/ML SYRINGE IV PRN ×5 (02:39→18:46)
[2023-05-22] MEDS: PROCHLORPERAZINE MALEATE 5 MG TAB PO PRN ×2 (05:42→21:56)
[2023-05-22] MEDS: ALPRAZolam 0.5 MG TABLET PO PRN ×2 (05:43→21:41)
--- NOTE | 2023-05-22 08:00 | Hospitalist Progress Note ---
Date of Service May 22, 2023 Assessment & Plan (1) Ulcer of second toe of left foot: Plan: No obvious signs of superficial or deep infection No surgical intervention per podiatry Will work to construct comprehensive pain plan Depakote, baclofen, amitriptyline, (2) Intractable nausea and vomiting: Plan: Resolved (3) Diarrhea: Plan: Resolved (4) HTN (hypertension): Plan: Continue lisinopril, metoprolol succinate, hydralazine PRN for sBP > 180 (5) Insomnia: Plan: Continue routine home meds (6) Diabetes mellitus type 2, uncontrolled: Plan: HbA1C 7.9 Will continue regimen from last admission: Lantus 10 units HS Novolog: --Goal BSG Range: Low 110 mg/dL, High 140 mg/dL --Correction Factor: 40 mg/dL/unit --Carbohydrate ratio = 12 g/unit --BSGs ACHS if eating, q6h if npo (7) Gastroparesis: Plan VTE Prophylaxis - Lovenox 40mg SQ daily Diet - clears, advance as tolerated Patient would like a different provider starting tomorrow. She fired me as I decided not to give her a new IV line and did not address pain to her content. Admission and Anticipated Discharge Date Admission Date: May 18, 2023 Supervising Physician Co-Signing Physician Notes I personally examined the patient and verified all tanner points of history and exam, discussed case, and agree with decision making with Dr Valderrama Toe still hurts a lot. Bleeding. Notes that it throbs and stabs and hurts constantly. Nothing really seems to alleviate it. Very angry about the pain. Notes that nobody will listen to hereven whenever I am kneeling at her bedside explaining to her that I am trying to listen to get a better feel for what we can do for the pain. In discussing prior medicinesshe relates having been on lots of things although she cannot recall most of themdoes cycle through a list of several short acting narcotics, NSAIDs, Tylenol, low dosing of gabapentin (which apparently made her sick to her stomach) and low/medium dosing of Lyrica (which did not help. Vitals noted, in general she is emotionally upset. Left foot second toe with ongoing ulceration and bleeding, bleeding a bit more than yesterday, but otherwise examines more or less the same. Foot wound/vascular insufficiency/toe ulcerationlocal wound care, appreciate podiatry input. Repeat MRI given that while surgical evaluation recommends local wound care, patient's level of concern, as well as her prior track record does make me wonder if she could have some degree of underlying osteomyelitis. Chronic painwill require multifactorial management. Tried to start to discuss this, she largely wanted to express how upset she is about her chronic pain, which made it much more difficult to start to lay foundation of mind-body approach encompassing somatic pain, peripheral neuropathic pain, central nervous system pain interpretation, other pain drivers, and the emotional overlay of how her psychological state can also impact the painthis unfortunately set her off in being very upset saying that everybody thinks the pain is all in her headto which I explained that I do not think the pain is purely in her head, but I do approach all chronic pain as a mind-body comprehensive approach, and tried to utilize her other foot (which has long since been amputated but still webster at times) as an example of how all pain is not purely somaticat this point she was generally very emotionally upset and not super receptive to deep discussions on this. Given that she did not tolerate gabapentin due to GI upset, and did not feel that pregabalin helped (even though it was at a fairly low dose) we will try nerve stabilization with Depakote, I suspect she has some surrounding muscle spasmmagnesium for now, baclofen as well. 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 Continue to try to educate on a mind-body approach and along term approach. Continue short acting as needed narcotics for now. Nausea and vomiting is resolved. Otherwise as above Subjective IV access obtained yesterday afternoon Continues to have pain in L 2nd toe. Improved with IV pain medication. Podiatry does not believe surgical intervention appropriate at this time. Will get MRI to evaluate further. No fever, no diarrhea today. Review of Systems Review of Systems: reviewed, per HPI Physical Exam Physical Exam: General: patient resting comfortably, NAD, non-toxic in appearance, AA&O x 4, answers questions appropriately and follows commands. Skin: warm, dry, intact HEENT: NC/AT, anicteric sclera, conjunctiva without injection, moist mucus membranes, trachea midline, no thyromegaly, no JVD Heart: +S1/S2, regular, no m/r/g Lungs: equal air entry bilaterally, no rales/rhonchi/wheezes Abd: +BS, soft, NT/ND, no masses/organomegaly/ascites Ext: R leg amputation. L foot with great toe amputation. L 2nd toe edematous, skin sloughing, bleeding. Neuro: nonfocal, patient AA&O x 4, speech intact, no facial droop, moving all extremities on command. Results & Data Results & Data Vital Signs (Past 12 Hours) Vital Signs Temp Pulse Pulse Resp BP Pulse Ox O2 Del Method 05/22/23 07:40 36.7 C 95 H 16 148/87 H 96 Room Air 05/21/23 23:31 36.6 C 83 18 145/70 H 96 Room Air Resident Activity Tracking Resident Involvement: Resident Care Provided Care Provided: Adult Hospital Medicine
[2023-05-22 08:02] LABS: Creatinine Clr Calc Pharmacy 101.4 ml/min; Est GFR (African American) 120.6 ml/min
[2023-05-22] MEDS: INSULIN ASPART PER UNIT CHARGE SC SCH ×4 (08:43→21:41)
[2023-05-22] MEDS: PANTOprazole 40 MG TAB PO SCH ×2 (08:44→21:43)
[2023-05-22] MEDS: METOPROLOL SUCC 50MG EXT REL TAB PO SCH (08:45)
[2023-05-22] MEDS: CLOPIDOGREL BISULFATE 75 MG TAB PO SCH (08:45)
[2023-05-22] MEDS: PRAZOSIN HCL 1 MG CAP PO SCH ×3 (08:45→21:42)
[2023-05-22] MEDS: ENOXAPARIN INJ 40 MG/0.4 ML SYR SQ SCH (08:46)
[2023-05-22] MEDS: DOCUSATE SODIUM 100 MG CAP PO SCH ×2 (09:21→21:49)
[2023-05-22] MEDS: CYCLOBENZAPRINE HCL 10 MG TAB PO SCH ×2 (09:21→21:42)
[2023-05-22] MEDS ORDERED: VALPROATE SOD 500 MG in DEXTROSE 5% 50 ML IV ONE ×2 (17:00→21:00)
--- NOTE | 2023-05-22 18:42 | Billing Data ---
Date of Service May 22, 2023 Coding Level of Care Code 65445 SUB INP/OBS CARE MIN
[2023-05-22] MEDS ORDERED: HYDROmorphone INJ 1 MG/ML SYRINGE IV STA (21:40)
[2023-05-22] MEDS: LANTUS PER UNIT CHARGE SQ SCH (21:41)
[2023-05-22] MEDS: ZOLPIDEM TARTRATE 10 MG TAB PO PRN (21:42)
[2023-05-22] MEDS: rOPINIRole HCL 2 MG TABLET PO SCH (21:43)
[2023-05-22] MEDS: AMITRIPTYLINE HCL 50 MG TAB PO SCH (21:44)
[2023-05-22] MEDS: BACLOFEN 10 MG TAB PO SCH (21:44)
[2023-05-22] MEDS: MAGNESIUM SULFATE / D5W 1 GM/100 ML BAG IV SCH (22:43)
[2023-05-23] MEDS: MAGNESIUM SULFATE / D5W 1 GM/100 ML BAG IV SCH ×3 (00:28→04:40)
--- NOTE | 2023-05-23 00:50 | Magnetic Resonance Report ---
Exam(s): MRI LEFT FOOT Without Contrast EXAM: MR Left Lower Extremity Without Intravenous Contrast, Foot CLINICAL HISTORY: Reason for exam: Evaluate 2nd toe for osteomyelitis. TECHNIQUE: Multiplanar magnetic resonance images of the left foot without intravenous contrast. COMPARISON: No relevant prior studies available. FINDINGS: Amputation of the first ray at the first metatarsal distal diaphysis. Mild edema in the medial and lateral sesamoids. Edema in the second toe distal and middle phalanxes, consistent with osteomyelitis. Small ulceration of the distal tip of the second toe. No fluid collection or abscess. No third, fourth, or fifth toe osteomyelitis. No metatarsal fracture. No Lisfranc malalignment. IMPRESSION: Positive for osteomyelitis of the second toe. No fluid collection or abscess. Amputation of the first ray, as described. Electronically signed by: Agus Pereira MD 05/23/23 00:49 AM
[2023-05-23] MEDS: HYDROmorphone INJ 1 MG/ML SYRINGE IV PRN ×7 (02:07→22:59)
--- NOTE | 2023-05-23 06:32 | Hospitalist Progress Note ---
Date of Service May 23, 2023 Assessment & Plan (1) Ulcer of second toe of left foot: (2) Intractable nausea and vomiting: (3) Diarrhea: (4) HTN (hypertension): (5) Insomnia: (6) Diabetes mellitus type 2, uncontrolled: (7) Gastroparesis: Plan #Ulcer of 2nd toe of L foot MRI 05/22/23 demonstrates osteomyelitis Daptomycin f/u podiatry recs Will work to construct comprehensive pain plan Depakote, baclofen, amitriptyline, magnesium #Intractable N/V resolved #Diarrhea resolved #HTN Continue lisinopril, metoprolol succinate, hydralazine PRN for sBP > 180 #T2DM Lantus 10 units HS Novolog: --Goal BSG Range: Low 110 mg/dL, High 140 mg/dL --Correction Factor: 40 mg/dL/unit --Carbohydrate ratio = 12 g/unit --BSGs ACHS if eating, q6h if npo #Gastroparesis VTE Prophylaxis - Lovenox 40mg SQ daily Diet - clears, advance as tolerated Admission and Anticipated Discharge Date Admission Date: May 18, 2023 Supervising Physician Co-Signing Physician Notes I personally examined the patient and verified all tanner points of history and exam, discussed case, and agree with decision making with Dr Valderrama pain still present but a little bit better. Discussed MRI results. Discussed with Dr. Noriega who will discuss neck steps with patient. Vitals noted, in general she is Calm and in no distress Left foot second toe with ongoing ulceration and bleeding, bleeding a bit more than yesterday, but otherwise examines more or less the same. Foot wound/vascular insufficiency/toe ulcerationlocal wound care, appreciate podiatry input. for amputation tomorrow Chronic painwill require multifactorial management. seems to be going reasonably well. Now that she is more calm I was able to discuss much more of a mind-body approach, and will definitely want to work to get her enrolled with pain psychology as an outpatient. In the meantime continue as needed Dilaudid, continue Depakote for nerve stabilization, continue amitriptyline, continue baclofen and wean down on cyclobenzaprine, etc. Nausea and vomiting is resolved. Otherwise as above DVT prophylaxisLovenox (holding in a.m. for surgery) Subjective Continues to have pain in L 2nd toe. MRI 05/22/23 demonstrates osteomyelitis of L 2nd toe Podiatry did not plan for intervention at first evaluation. No fever, no diarrhea today. Review of Systems Review of Systems: reviewed, per HPI Physical Exam Physical Exam: General: patient resting comfortably, NAD, non-toxic in appearance, AA&O x 4, answers questions appropriately and follows commands. Skin: warm, dry, intact HEENT: NC/AT, anicteric sclera, conjunctiva without injection, moist mucus membranes, trachea midline, no thyromegaly, no JVD Heart: +S1/S2, regular, no m/r/g Lungs: equal air entry bilaterally, no rales/rhonchi/wheezes Abd: +BS, soft, NT/ND, no masses/organomegaly/ascites Ext: R leg amputation. L foot with great toe amputation. L 2nd toe edematous, skin sloughing, bleeding. Neuro: nonfocal, patient AA&O x 4, speech intact, no facial droop, moving all extremities on command. Results & Data Results & Data Vital Signs (Past 12 Hours) Vital Signs Temp Pulse Resp BP BP Pulse Ox O2 Del Method 05/22/23 20:33 36.5 C 91 H 18 107/75 96 Room Air 05/22/23 18:50 146/85 H Resident Activity Tracking Resident Involvement: Resident Care Provided Care Provided: Adult Hospital Medicine
[2023-05-23] MEDS ORDERED: DAPTOmycin 200 MG in SYRINGE 0 ML IV ONE (09:00)
[2023-05-23] MEDS: PANTOprazole 40 MG TAB PO SCH ×2 (09:09→19:37)
[2023-05-23] MEDS: PRAZOSIN HCL 1 MG CAP PO SCH ×3 (09:09→19:37)
[2023-05-23] MEDS: BACLOFEN 10 MG TAB PO SCH ×3 (09:09→19:34)
[2023-05-23] MEDS: METOPROLOL SUCC 50MG EXT REL TAB PO SCH (09:10)
[2023-05-23] MEDS: CLOPIDOGREL BISULFATE 75 MG TAB PO SCH (09:10)
[2023-05-23 09:13] LABS: Alanine Aminotransferase 11 U/L (7-52); Albumin Globulin Ratio 1.8 (0.9-2); Albumin Level 4.7 gm/dl (3.4-5.0); Alkaline Phosphatase 65 U/L (34-104); Anion Gap 5 (3-11); Aspartate Aminotransferase 10 U/L (13-39); BUN Creatinine Ratio 27.5 (10-20); Bilirubin,Total 0.6 mg/dl (0.2-1.0); Blood Urea Nitrogen 14 mg/dl (6-23); C Reactive Protein < 0.50 mg/dl (0-0.5); Calcium 9.5 mg/dl (8.6-10.3); Carbon Dioxide 33 mmol/L (21-32); Chloride 99 mmol/L (98-107); Creatinine Clr Calc Pharmacy 107.4 ml/min; Est GFR (African American) 122.8 ml/min; Globulin 2.6 gm/dl (2.5-4.0); Glucose 161 mg/dl (70-99(Fasting)); Potassium 4.1 mmol/L (3.5-5.1); Sodium 137 mmol/L (136-145); Total Protein 7.3 gm/dl (6.0-8.3)
[2023-05-23] MEDS: INSULIN ASPART PER UNIT CHARGE SC SCH ×4 (09:14→21:22)
[2023-05-23 09:19] LABS: Basophils # (auto) 0.07 K/uL (0.00-0.20); Basophils % (auto) 0.7 %; Eosinophils % (auto) 6.4 %; Hematocrit (blood only) 38.8 % (37.0-47.0); Hemoglobin 12.9 g/dl (12.0-16.0); Immature Granulocytes # (auto) 0.02 K/uL (0.01-0.20); Immature Granulocytes % (auto) 0.2 %; Lymphocytes # (auto) 2.26 K/uL (1.20-3.40); Lymphocytes % (auto) 24.1 %; Mean Corpuscular Hemoglobin 28.5 pg (25.0-34.0); Mean Corpuscular Hgb Conc 33.2 g/dL (32.0-36.0); Mean Corpuscular Volume 85.7 fL (80.0-100.0); Mean Platelet Volume 9.8 fL (9.4-12.4); Monocytes # (auto) 0.71 K/uL (0.11-0.59); Monocytes % (auto) 7.6 %; Neutrophils # (auto) 5.71 K/uL (1.40-6.50); Platelet Count 309 K/uL (130-400); RDW Coefficient of Variation 13.6 % (11.5-14.5); RDW Standard Deviation 41.8 fL (36.4-46.3); Red Blood Count 4.53 M/uL (4.20-5.40); White Blood Count 9.37 K/ul (4.8-10.8)
[2023-05-23] MEDS: CYCLOBENZAPRINE HCL 5 MG TAB PO SCH ×2 (09:38→19:36)
[2023-05-23] MEDS: DOCUSATE SODIUM 100 MG CAP PO SCH ×2 (09:38→19:49)
[2023-05-23] MEDS: ALPRAZolam 0.5 MG TABLET PO PRN (09:38)
[2023-05-23] MEDS: DIVALPROEX EXTENDED RELEASE 500 MG TAB PO SCH (09:38)
[2023-05-23] MEDS: ENOXAPARIN INJ 40 MG/0.4 ML SYR SQ SCH (09:39)
--- NOTE | 2023-05-23 17:09 | Orthopedic Progress Note ---
Date of Service May 23, 2023 Assessment & Plan (1) Ulcer of second toe of left foot: Plan: Patient seen and evaluated at bedside. Reviewed MRI and MRI findings. Imaging done with out contrast. Reviewed limitations of study, specifically MRI is senstative but not specific. Discussed use of Bone scan for confirmation and very specific. Patient declines further imaging and would like second toe removed. Left second toe amputation planned for 05/24/14 Thank you for involving me in the Patient's care and will continue to follow while in house. Admission and Anticipated Discharge Date Admission Date: May 18, 2023 Subjective Patient seen at bedside at today's visit resting comfortably. MRI 05/22/23 demonstrates osteomyelitis of L 2nd toe Review of Systems Review of Systems: All systems reviewed & are unremarkable except as noted in HPI & below Physical Exam Constitutional: cooperative and comfortable Eyes: normal visual cardozo by confrontation Neck: trachea midline Respiratory: normal respiratory effort Cardiovascular: Vessels: posterior tibial pulses present and dorsalis pedis pulses present Musculoskeletal: Extremities: + amputation noted (Right BKA) and + foot a bnormality Skin: + ulcer (Left second toe partial thickness wound) Neurologic: moves all extremities (Absent epicritic sensation.) Psychiatric: Orientation: alert and oriented x 3 Results & Data Vital Signs (Past 12 Hours) Vital Signs Temp Pulse Pulse Resp BP Pulse Ox O2 Del Method 05/23/23 15:01 36.4 C L 78 16 105/70 98 Room Air 05/23/23 07:14 36.4 C L 88 16 146/78 H 97 Room Air Diagnostic Findings [place], [place] [phone] Magnetic Resonance Report Patient:EILEEN ESCOBAR Admit Date:05/18/23 MR#:[id number] Address1:[address] [place] [address] Acct ID:[id number] Address2: Date:1965 [facility] Zip:[place] [address] Age:57 Location:3E Sex:F Room/Bed:E324 Att Phy:Jon Whaley D.O. Diagnosis:DIARRHEA WITH INTRACTABLE NAUSEA,VOMITING,POSS SEP Ana Maria Phy:Vince Vernon DO Service Date:05/22/23 Fam Phy: Interpreting Phy:Agus Pereira MDAdmit Phy:Silvestre Best MD Ordering Phy:Augustine Valderrama DO cc: ~ Exam(s): MRI LEFT FOOT Without Contrast EXAM: MR Left Lower Extremity Without Intravenous Contrast, Foot CLINICAL HISTORY: Reason for exam: Evaluate 2nd toe for osteomyelitis. TECHNIQUE: Multiplanar magnetic resonance images of the left foot without intravenous contrast. COMPARISON: No relevant prior studies available. FINDINGS: Amputation of the first ray at the first metatarsal distal diaphysis. Mild edema in the medial and lateral sesamoids. Edema in the second toe distal and middle phalanxes, consistent with osteomyelitis. Small ulceration of the distal tip of the second toe. No fluid collection or abscess. No third, fourth, or fifth toe osteomyelitis. No metatarsal fracture. No Lisfranc malalignment. IMPRESSION: Positive for osteomyelitis of the second toe. No fluid collection or abscess. Amputation of the first ray, as described. Electronically signed by: Agus Pereira MD 05/23/23 00:49 AM Dictated:05/23/2348 Transcribed: 05/23/2348
--- NOTE | 2023-05-23 19:14 | Billing Data ---
Date of Service May 23, 2023 Coding Level of Care Code 14446 SUB INP/OBS CARE MIN
[2023-05-23] MEDS: AMITRIPTYLINE HCL 50 MG TAB PO SCH (19:33)
[2023-05-23] MEDS: rOPINIRole HCL 2 MG TABLET PO SCH (19:35)
[2023-05-23] MEDS: ZOLPIDEM TARTRATE 10 MG TAB PO PRN (19:49)
[2023-05-23] MEDS: LANTUS PER UNIT CHARGE SQ SCH (21:22)
[2023-05-24] MEDS: HYDROmorphone INJ 1 MG/ML SYRINGE IV PRN ×6 (02:37→23:37)
[2023-05-24 07:44] LABS: Basophils # (auto) 0.05 K/uL (0.00-0.20); Basophils % (auto) 0.6 %; Eosinophils # (auto) 0.56 K/uL (0.00-0.50); Eosinophils % (auto) 6.2 %; Hematocrit (blood only) 37.4 % (37.0-47.0); Hemoglobin 12.6 g/dl (12.0-16.0); Immature Granulocytes # (auto) 0.02 K/uL (0.01-0.20); Immature Granulocytes % (auto) 0.2 %; Lymphocytes # (auto) 2.09 K/uL (1.20-3.40); Lymphocytes % (auto) 23.2 %; Mean Corpuscular Hemoglobin 28.6 pg (25.0-34.0); Mean Corpuscular Hgb Conc 33.7 g/dL (32.0-36.0); Mean Corpuscular Volume 84.8 fL (80.0-100.0); Mean Platelet Volume 9.8 fL (9.4-12.4); Monocytes # (auto) 0.69 K/uL (0.11-0.59); Monocytes % (auto) 7.7 %; Neutrophils # (auto) 5.58 K/uL (1.40-6.50); Neutrophils % (auto) 62.1 %; Platelet Count 292 K/uL (130-400); RDW Coefficient of Variation 13.5 % (11.5-14.5); RDW Standard Deviation 42.3 fL (36.4-46.3); Red Blood Count 4.41 M/uL (4.20-5.40); White Blood Count 8.99 K/ul (4.8-10.8)
[2023-05-24 07:58] LABS: Alanine Aminotransferase 9 U/L (7-52); Albumin Globulin Ratio 1.8 (0.9-2); Albumin Level 4.4 gm/dl (3.4-5.0); Alkaline Phosphatase 69 U/L (34-104); Anion Gap 5 (3-11); Aspartate Aminotransferase 10 U/L (13-39); BUN Creatinine Ratio 26.9 (10-20); Bilirubin,Total 0.4 mg/dl (0.2-1.0); Blood Urea Nitrogen 14 mg/dl (6-23); C Reactive Protein < 0.50 mg/dl (0-0.5); Carbon Dioxide 33 mmol/L (21-32); Chloride 100 mmol/L (98-107); Creatinine Clr Calc Pharmacy 105.3 ml/min; Est GFR (African American) 122.1 ml/min; Est GFR (Non-African American) 105.3 ml/min; Globulin 2.5 gm/dl (2.5-4.0); Glucose 148 mg/dl (70-99(Fasting)); Potassium 4.2 mmol/L (3.5-5.1); Sodium 138 mmol/L (136-145); Total Protein 6.9 gm/dl (6.0-8.3)
[2023-05-24] MEDS ORDERED: HYDROmorphone INJ 1 MG/ML SYRINGE IV STA (08:54)
[2023-05-24] MEDS: METOPROLOL SUCC 50MG EXT REL TAB PO SCH (09:42)
[2023-05-24] MEDS: PRAZOSIN HCL 1 MG CAP PO SCH ×3 (09:42→19:58)
[2023-05-24] MEDS: INSULIN ASPART PER UNIT CHARGE SC SCH ×4 (09:48→20:09)
[2023-05-24] MEDS: PANTOprazole 40 MG TAB PO SCH ×2 (10:45→19:58)
[2023-05-24] MEDS: CLOPIDOGREL BISULFATE 75 MG TAB PO SCH (10:45)
[2023-05-24] MEDS: BACLOFEN 10 MG TAB PO SCH ×3 (10:45→19:57)
[2023-05-24] MEDS: DOCUSATE SODIUM 100 MG CAP PO SCH ×2 (10:45→20:07)
[2023-05-24] MEDS: DIVALPROEX EXTENDED RELEASE 500 MG TAB PO SCH (10:45)
[2023-05-24] MEDS: CYCLOBENZAPRINE HCL 5 MG TAB PO SCH (10:45)
[2023-05-24] MEDS: ALPRAZolam 0.5 MG TABLET PO PRN (13:12)
--- NOTE | 2023-05-24 15:21 | Hospitalist Progress Note ---
Date of Service May 24, 2023 Assessment & Plan (1) Ulcer of second toe of left foot: (2) Intractable nausea and vomiting: (3) Diarrhea: (4) HTN (hypertension): (5) Insomnia: (6) Diabetes mellitus type 2, uncontrolled: (7) Gastroparesis: Plan #Ulcer of 2nd toe of L foot MRI 05/22/23 demonstrates osteomyelitis Daptomycin Plan for 2nd toe amp today Will work to construct comprehensive pain plan Depakote, baclofen, amitriptyline, magnesium #Intractable N/V resolved #Diarrhea resolved #HTN Continue lisinopril, metoprolol succinate, hydralazine PRN for sBP > 180 #T2DM Lantus 10 units HS Novolog: --Goal BSG Range: Low 110 mg/dL, High 140 mg/dL --Correction Factor: 40 mg/dL/unit --Carbohydrate ratio = 12 g/unit --BSGs ACHS if eating, q6h if npo #Gastroparesis VTE Prophylaxis - Lovenox 40mg SQ daily Diet - clears, advance as tolerated Admission and Anticipated Discharge Date Admission Date: May 18, 2023 Supervising Physician Co-Signing Physician Notes I personally examined the patient and verified all tanner points of history and exam, discussed case, and agree with decision making with Dr Valderrama waiting to go to OR when i see her. IV had gone bad, fortunately IV team was able to obtain access. Vitals noted, in general she is calm and in no distress breathing unlabored no accessory muscles good effort Foot wound/vascular insufficiency/toe ulcerationlocal wound care, appreciate podiatry input. for amputation today. ?post op need for abx to be determined based on intraop findings/podiatry opinion Chronic painwill require multifactorial management. seems to be going reasonably well. drop flexeril slightly lower, keep baclofen, depakote, amitryptilline. would benefit from pain psychology, is willing. Nausea and vomiting is resolved. Otherwise as above DVT prophylaxisLovenox (holding today for surgery) Subjective Continues to have pain in L 2nd toe. Pain slightly worse today. MRI 05/22/23 demonstrates osteomyelitis of L 2nd toe Plan for L 2nd toe amp today. No fever, no diarrhea today. Review of Systems Review of Systems: reviewed, per HPI Physical Exam Physical Exam: General: patient resting comfortably, NAD, non-toxic in appearance, AA&O x 4, answers questions appropriately and follows commands. Skin: warm, dry, intact HEENT: NC/AT, anicteric sclera, conjunctiva without injection, moist mucus membranes, trachea midline, no thyromegaly, no JVD Heart: +S1/S2, regular, no m/r/g Lungs: equal air entry bilaterally, no rales/rhonchi/wheezes Abd: +BS, soft, NT/ND, no masses/organomegaly/ascites Ext: R leg amputation. L foot with great toe amputation. L 2nd toe edematous, skin sloughing, bleeding. Neuro: nonfocal, patient AA&O x 4, speech intact, no facial droop, moving all extremities on command. Results & Data Results & Data Vital Signs (Past 12 Hours) Vital Signs Temp Pulse Resp BP Pulse Ox O2 Del Method 05/24/23 13:58 36.6 C 103 H 16 117/77 97 Room Air 05/24/23 07:09 36.6 C 97 H 16 153/87 H 97 Room Air Resident Activity Tracking Resident Involvement: Resident Care Provided Care Provided: Adult Hospital Medicine
[2023-05-24] MEDS ORDERED: BUPIVACAINE 0.5 % 5 MG/1 ML MPF 30ML VIAL ONE (15:58)
[2023-05-24] MEDS ORDERED: LIDOCAINE 2% 2 ML VIAL/AMP(20MG/ML) INFIL ONE (16:06)
[2023-05-24] MEDS ORDERED: PROPOFOL IV EMULSION 10 MG/ML 20 ML VIAL IV ONE (16:06)
[2023-05-24] MEDS ORDERED: ePHEDrine sulfate 50 MG/ML AMP IV PRN (16:13)
[2023-05-24] MEDS ORDERED: ATROPINE SULFATE 0.1 MG/ML 10ML SYR IV PRN ×2 (16:13→17:38)
--- NOTE | 2023-05-24 16:15 | Anesthesiology Consultation ---
Date of Service May 24, 2023 Assessment & Plan Chart Review Chart Review: Acceptable Risk for Surgery Consults Requested none History Surgery Operation Date: 05/24/23 09:05 Proposed Procedures p Left 2nd Toe Amputation - Mathew Noriega, HANSM, [place] Height/Weight Height: 5 ft 2 in Weight: 66.3 kg Allergies Allergy/AdvReac Type Severity Reaction Status Date / Time morphine Allergy Severe blisters Verified 05/18/23 11:52 in mouth Sulfa (Sulfonamide Allergy Severe rash/swelli Verified 05/18/23 11:52 Antibiotics) ng amoxicillin [From Augmentin] Allergy Intermediate itching/power Verified 05/18/23 11:52 h ceftriaxone [From Rocephin] Allergy Intermediate Hives Verified 05/18/23 11:52 clavulanic acid Allergy Intermediate itching/power Verified 05/18/23 11:52 [From Augmentin] h erythromycin base Allergy Intermediate Hives Verified 05/18/23 11:52 iron [From Venofer] Allergy Intermediate Hypertensio Verified 05/18/23 11:52 n vancomycin Allergy Intermediate YULIYA Verified 05/18/23 11:52 SYNDROME---CAN TAKE IF VERY SLOW DRIP. adhesive AdvReac Intermediate DERMABOND Verified 05/18/23 11:52 excoriates skin Medications Home Medications Medication Instructions Recorded Confirmed Last Taken ropinirole 2 mg tablet 4 mg PO HS 10/19/20 05/18/23 4 Days Ago ~05/14/23 insulin lispro 100 unit/mL 5 unit subcut TIDM 03/08/22 05/18/23 4 Days Ago subcutaneous pen ~05/14/23 zolpidem 10 mg tablet 10 mg PO HS PRN Sleep 03/08/22 05/18/23 4 Days Ago ~05/14/23 oxycodone-acetaminophen 5 mg-325 2 tab PO Q4H PRN Severe Pain 10/02/22 05/18/23 4 Days Ago mg tablet (Scale Score 7-10) ~05/14/23 insulin glargine 100 unit/mL (3 10 unit subcut DAILY 10/17/22 05/18/23 4 Days Ago mL) subcutaneous pen (Lantus ~05/14/23 Solostar U-100 Insulin) albuterol sulfate 90 mcg/actuation 2 puff inhalation Q6 PRN Shortness 05/08/23 05/18/23 4 Days Ago aerosol inhaler Of Breath Or Wheezing ~05/14/23 alprazolam 1 mg tablet 1 mg PO TID PRN Anxiety 05/08/23 05/18/23 4 Days Ago ~05/14/23 cyclobenzaprine 10 mg tablet 10 mg PO AMPM 05/08/23 05/18/23 4 Days Ago ~05/14/23 docusate sodium 100 mg capsule 100 mg PO BID 05/08/23 05/18/23 4 Days Ago ~05/14/23 gentamicin 0.1 % topical ointment 1 applic topical DAILY 05/08/23 05/18/23 4 Days Ago ~05/14/23 lisinopril 10 mg tablet 10 mg PO DAILY 05/08/23 05/18/23 4 Days Ago ~05/14/23 metoprolol succinate 50 mg 50 mg PO QAM 05/08/23 05/18/23 4 Days Ago tablet,extended release 24 hr ~05/14/23 (Toprol XL) ondansetron HCl 4 mg tablet 4 mg PO HS PRN Nausea 05/08/23 05/18/23 4 Days Ago ~05/14/23 pantoprazole 40 mg tablet,delayed 40 mg PO BID 05/08/23 05/18/23 4 Days Ago release ~05/14/23 prazosin 1 mg capsule 1 mg PO TID 05/08/23 05/18/23 4 Days Ago ~05/14/23 clopidogrel 75 mg tablet (Plavix) 75 mg PO DAILY #30 tabs 05/10/23 05/18/23 4 Da ys Ago ~05/14/23 prochlorperazine maleate 5 mg 5 mg PO Q6H PRN Nausea 05/18/23 05/18/23 4 Days Ago tablet ~05/14/23 Active Medications Generic Name Dose Route Start Last Admin Trade Name Freq PRN Reason Stop Dose Admin Alprazolam 1 mg 05/18/23 14:33 05/24/23 13:12 Alprazolam 0.5 Mg Tablet PO 06/17/23 14:32 1 mg TID PRN Administration Anxiety Amitriptyline HCl 50 mg 05/22/23 21:00 05/23/23 19:33 Amitriptyline Hcl 50 Mg Tab PO 06/21/23 20:59 50 mg HS RICKY Administration Baclofen 10 mg 05/22/23 21:00 05/24/23 10:45 Baclofen 10 Mg Tab PO 06/21/23 20:59 Not Given TID RICKY Clopidogrel Bisulfate 75 mg 05/19/23 09:00 05/24/23 10:45 Clopidogrel Bisulfate 75 Mg Tab PO 06/18/23 08:59 Not Given DAILY RICKY Cyclobenzaprine HCl 5 mg 05/24/23 09:00 05/24/23 10:45 Cyclobenzaprine Hcl 5 Mg Tab PO 06/23/23 08:59 Not Given DAILY RICKY Divalproex Sodium 500 mg 05/23/23 09:00 05/24/23 10:45 Divalproex Extended Release 500 Mg Tab PO 06/22/23 08:59 Not Given DAILY [facility] Docusate Sodium 100 mg 05/18/23 21:00 05/24/23 10:45 Docusate Sodium 100 Mg Cap PO 06/17/23 20:59 Not Given BID [facility] Enoxaparin Sodium 40 mg 05/19/23 09:00 05/23/23 09:39 Enoxaparin Inj 40 Mg/0.4 Ml Syr SQ 06/18/23 08:59 40 mg QAM RICKY Administration Hydralazine HCl 10 mg 05/20/23 19:38 05/22/23 14:21 Hydralazine 10 Mg Tab PO 06/19/23 19:44 10 mg Q4H PRN Administration HTN Insulin Aspart 0 units 05/18/23 21:00 05/24/23 13:14 Insulin Aspart Per Unit Charge SC 06/17/23 20:59 Not Given ACHS [facility] Insulin Glargine 10 units 05/18/23 21:00 05/23/23 21:22 Lantus Per Unit Charge SQ 06/17/23 20:59 10 units HS RICKY Administration Metoprolol Succinate 50 mg 05/19/23 09:00 05/24/23 09:42 Metoprolol Succ 50mg Ext Rel Tab PO 06/18/23 08:59 50 mg QAM RICKY Administration Pantoprazole Sodium 40 mg 05/18/23 21:00 05/24/23 10:45 Pantoprazole 40 Mg Tab PO 06/17/23 20:59 Not Given BID [facility] Prazosin HCl 1 mg 05/18/23 14:33 05/24/23 09:42 Prazosin Hcl 1 Mg Cap PO 06/17/23 14:32 1 mg TID RICKY Administration Prochlorperazine 5 mg 05/20/23 19:39 05/22/23 21:56 Prochlorperazine Maleate 5 Mg Tab PO 06/19/23 19:44 5 mg Q6H PRN Administration nausea Ropinirole HCl 4 mg 05/18/23 21:00 05/23/23 19:35 Ropinirole Hcl 2 Mg Tablet PO 06/17/23 20:59 4 mg HS RICKY Administration Zolpidem Tartrate 10 mg 05/18/23 14:33 05/23/23 19:49 Zolpidem Tartrate 10 Mg Tab PO 06/17/23 14:32 10 mg HSZ PRN Administration Sleep Past Medical History Medical History Abdominal pain Acidosis, lactic Acute dehydration 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 No issues per anesthesia postop progress note. Anemia Benzodiazepine dependence Benzodiazepine withdrawal CAD (coronary artery disease) Cellulitis Chronic back pain Chronic pain syndrome Costochondritis COVID-19 Depression Diabetes mellitus type 2, uncontrolled Diabetic neuropathy Diabetic peripheral neuropathy Diastolic CHF DM2 (diabetes mellitus, type 2) IDDM, A1c 07/2021-11% Esophagitis determined by endoscopy Gastritis Gastroenteritis Gastroparesis GIB (gastrointestinal bleeding) History of amputation of great toe History of tobacco use HTN (hypertension) Hyperlipidemia Hypertriglyceridemia Hypomagnesemia Hyponatremia Infection of left great toe due to methicillin resistant Staphylococcus aureus (MRSA) Insomnia Insulin dependent diabetes mellitus Iron deficiency anemia Nonobstructive atherosclerosis of coronary artery Numbness of lower extremity Opiate abuse, continuous Opiate dependence Opioid dependence Osteomyelitis of great toe of left foot Peripheral neuropathy Restless leg syndrome Right second toe ulcer Seizures Sepsis Shortness of breath Past Family History Family History Mother , age 63 Myocardial infarction Father , age 68 or 69 Myocardial infarction Brother S/P CABG (coronary artery bypass graft) Sister Myocardial infarction x 3; she is 57yo Past Surgical History Surgical History History of esophagogastroduodenoscopy (EGD) History of lumbar surgery History of right below knee amputation (12/22/21) Right Below Knee Amputation(Right) - Davon Good MD, FACS Social History Smoking Status: Former smoker tobacco type: cigarettes Smoking cigarettes per day: 20 Do You Dip or Chew Tobacco: No Hx Alcohol Use: No Hx Substance Use: Yes substance use type: marijuana Substance Use Type Other:: medical marijuana Last Used Substance: Days (ago) Last Used Substance Other:: Medical marijuana Physical Exam Vital Signs Last Vital Signs Temp 36.6 C 05/24/23 13:58 Pulse 103 H 05/24/23 13:58 Resp 16 05/24/23 13:58 BP 117/77 05/24/23 13:58 Pulse Ox 97 05/24/23 13:58 O2 Del Method Room Air 05/24/23 13:58 Testing Laboratory Results 05/24/23 06:55 05/24/23 06:55 Urine Color Yellow 05/19/23 05:50 Urine Appearance Clear (Clear) 05/19/23 05:50 Urine pH 5.5 (4.5-7.5) 05/19/23 05:50 Ur Specific [place] 1.015 (1.000-1.030) 05/19/23 05:50 Urine Protein Negative (Negative) 05/19/23 05:50 Urine Glucose (UA) Negative (Negative) 05/19/23 05:50 Urine Ketones Negative (Negative) 05/19/23 05:50 Urine Nitrite Negative (Negative) 05/19/23 05:50 Ur Leukocyte Esterase Negative (Negative) 05/19/23 05:50 05/18/23 10:19 Aerobic Blood Culture - Final Blood No growth in Aerobic bottle after 5 days. Anaerobic Blood Culture - Final 05/18/23 10:10 Aerobic Blood Culture - Final Blood No growth in Aerobic bottle after 5 days. Anaerobic Blood Culture - Final 05/24/23 05/24/23 11:28 07:52 POC Glucose 133 H 145 H
[2023-05-24] MEDS ORDERED: ONDANSETRON INJ 2 MG/ML 2 ML VIAL IV PRN (17:38)
[2023-05-24] MEDS ORDERED: FLUMAZENIL 0.1 MG/1 ML 10 ML VIAL IV PRN (17:38)
[2023-05-24] MEDS ORDERED: PROMETHAZINE HCL 12.5 MG in SODIUM CHLORIDE 0.9% 50 ML IV PRN (17:38)
[2023-05-24] MEDS ORDERED: fentaNYL citrate PF 100 MCG/2 ML VIAL IV PRN (17:38)
[2023-05-24] MEDS ORDERED: LABETALOL HCL IV 5 MG/ML 20ML IV PRN (17:38)
[2023-05-24] MEDS ORDERED: NALOXONE HCL 0.4 MG/1 ML VIAL/CARP IV PRN (17:38)
--- NOTE | 2023-05-24 17:41 | History & Physical Bridge Note ---
Date of Service May 24, 2023 History & Physical Bridge Note I have examined the patient, reviewed the History & Physical and in the interval since the performance of the History & Physical I have noted the following changes of clinical significance: no changes noted
--- NOTE | 2023-05-24 17:44 | Communication Note ---
Date of Service: May 24, 2023 05/18/20236027-MCX-VMT 05/18/2023-EKG -ST @ 111 04/29/20226594-ZDKS-Vj LV sys. Fxn;No RWMA's;EF-60%;Mild LVH;no valvular pathology
--- NOTE | 2023-05-24 17:51 | Billing Data ---
Date of Service May 24, 2023 Coding Level of Care Code 83016 SUB INP/OBS CARE MIN
[2023-05-24] MEDS ORDERED: MIDAZOLAM HCL 1 MG/ML 2ML VIAL ONE (17:54)
[2023-05-24] MEDS ORDERED: fentaNYL citrate PF 100 MCG/2 ML VIAL ONE (17:54)
--- NOTE | 2023-05-24 18:38 | Post Operative Brief Note ---
Immediate Post Op Note v1 Date of Surgery May 24, 2023 Pre & Post Diagnosis Operation Date: 05/24/23 09:05 Pre-Op Diagnosis: Ulcer of second toe left foot Post-Op Diagnosis: Ulcer of second toe left foot I identified the patient and participated in the time-out.: Yes Procedure Operation Date: 05/24/23 09:05 Actual Procedures p Left 2nd Toe Amputation(Left) - Mathew Noriega DPM, MS Surgeon Mathew Noriega DPM, MS Supervisor [employer] Testing none Estimated Blood Loss 0 Findings Consistent with Post-Op Diagnosis consistent with pre operative diagnosis
[2023-05-24] MEDS: fentaNYL citrate PF 100 MCG/2 ML VIAL IV PRN ×2 (18:55→19:10)
--- NOTE | 2023-05-24 19:16 | Anesthesiology Progress Note ---
Date of Service May 24, 2023 Anesthesia Post Procedure Vital Signs Vital Signs: Temp Pulse Pulse Pulse Resp BP Pulse Ox 05/24/23 19:00 93 H 12 115/65 92 05/24/23 18:50 96 H 15 119/64 95 05/24/23 19:10 88 14 111/65 96 05/24/23 18:42 36.4 C L 96 H 20 118/66 92 05/24/23 17:06 36.8 C 96 H 18 148/88 H 97 05/24/23 13:58 36.6 C 103 H 16 117/77 97 05/24/23 07:09 36.6 C 97 H 16 153/87 H 97 05/23/23 19:34 05/23/23 22:59 36.4 C L 81 16 159/80 H 96 O2 Del Method 05/24/23 19:00 Room Air 05/24/23 18:50 Room Air 05/24/23 19:10 Room Air 05/24/23 18:42 Room Air 05/24/23 17:06 Room Air 05/24/23 13:58 Room Air 05/24/23 07:09 Room Air 05/23/23 19:34 Room Air 05/23/23 22:59 Room Air Pain Intensity Left Leg: Pain Intensity: 0 Left Foot: Pain Intensity: 4 Transfer of Care Handoff Completed per policy Notes Mental Status: alert / awake / arousable Patient Amnestic to Procedure: Yes Nausea / Vomiting: adequately controlled Pain: adequately controlled Airway Patency, RR, SpO2: stable & adequate BP & HR: stable & adequate Hydration State: stable & adequate Anesthetic Complications: no major complications apparent
[2023-05-24] MEDS: AMITRIPTYLINE HCL 50 MG TAB PO SCH (19:57)
[2023-05-24] MEDS: rOPINIRole HCL 2 MG TABLET PO SCH (19:59)
[2023-05-24] MEDS: PROCHLORPERAZINE MALEATE 5 MG TAB PO PRN (20:00)
[2023-05-24] MEDS: ZOLPIDEM TARTRATE 10 MG TAB PO PRN (20:07)
[2023-05-24] MEDS: LANTUS PER UNIT CHARGE SQ SCH (20:10)
--- NOTE | 2023-05-24 20:48 | Operative Report ---
Post Operative Report Pre & Post Diagnosis Operation Date: 05/24/23 09:05 Pre-Op Diagnosis: Ulcer of second toe left foot Post-Op Diagnosis: Ulcer of second toe left foot I identified the patient and participated in the time-out.: Yes Procedure Operation Date: 05/24/23 09:05 Actual Procedures p Left 2nd Toe Amputation(Left) - Mathew Noriega DPM, MS Surgeon Mathew Noriega DPM, MS Automation Manager none Estimated Blood Loss 0 Findings Consistent with Post-Op Diagnosis consistent with pre operative diagnosis Specimens 1. Left second toe distal phalanx - microbiology 2. Left second toe - pathology 3. Deep swab left second toe Description of Procedure History of present illness: Patient is a type II diabetic, 57 year old female who is seen for treatment of osteomyelitis of the left second toe. Patient requests surgical amputation of left second toe. I discussed patient's history of previous toe amputation and need for protection of remaining left toes. All questions answered. Discussed procedure in detail and postoperative recovery. All potential risks, benefits, complications, alternatives, rehab, potential for incomplete relief of symptoms, need for further surgery, DVT, PE, , persistent pain, swelling, scarring, weakness, neurovascular, wound complications and potential for amputations were discussed with patient. Unwanted outcomes such as, but not limited to were reviewed including under correction, overcorrection, return of deformity, infection. All questions were answered. Patient has decided to proceed with procedure as indicated. Preoperative diagnosis: Diabetic ulcer osteomyelitis left second toe Postoperative diagnosis: same Name of operation: Amputation left second toe Surgeon Dr. Noriega Automation Manager: None Anesthesia: local with monitored anesthesia care Hemostasis: pneumatic ankle tourniquet Estimated blood loss: minimal Procedure in detail: Under mild sedation the patient was brought in the operating room placed on the operating table in supine position. A pneumatic ankle tourniquet was then placed about the patient's left ankle. Following IV sedation the foot was prepped scrubbed and draped in usual aseptic manner. An Esmarch bandage was utilized to exsanguinate the patient's left foot and the pneumatic ankle tourniquet was then inflated. Attention was then directed to a nonhealing diabetic ulcer on the distal aspect of the left second toe. A fishmouth incision was created utilizing a sharp, sterile, #15 blade. The incision was deepened through subcutaneous tissue using sharp blunt dissection. Care was taken to identify and retract all vital neurovascular structures. All bleeders were ligated and cauterized necessary. At this time the left second toe was removed at the metatarsal phalangeal joint and placed on the back table. The distal portion phalanx of the left second toe was sent to microbiology, the remaining toe portion was placed in formalin and sent to pathology Copious amounts of sterile normal saline were utilized to flush the incision site. The skin was then primarily closed utilizing 4-0 nylon in horizontal suture mattress techniques as well as simple suture closure. Upon completion of the procedure the incision was dressed with Betadine soaked Adaptic followed by sterile compressive dressing consisting of 4 x 4's Candice Kerlix ABD the pneumatic ankle tourniquet was inflated and a prompt hyperemic response was noted to all digits of the left foot. An Mikey wrap and postoperative shoe were then applied. The Patient tolerated the procedure and anesthesia well. He was transferred to recovery room vital signs stable and vascular status intact all toes of the left foot following. Patient will be re-admitted to the floor resuming all pre-operative orders. I attest to the content of the Intraoperative Record and any orders documented therein. Any exceptions are noted below.
[2023-05-24] MEDS ORDERED: SODIUM CHLORIDE 0.9% 1,000 ML IV ONE (22:07)
[2023-05-25] MEDS: HYDROmorphone INJ 1 MG/ML SYRINGE IV PRN ×7 (03:01→20:23)
--- NOTE | 2023-05-25 07:01 | Hospitalist Progress Note ---
Date of Service May 25, 2023 Assessment & Plan (1) Ulcer of second toe of left foot: (2) Intractable nausea and vomiting: (3) Diarrhea: (4) HTN (hypertension): (5) Insomnia: (6) Diabetes mellitus type 2, uncontrolled: (7) Gastroparesis: Plan #Ulcer of 2nd toe of L foot MRI 05/22/23 demonstrates osteomyelitis Daptomycin Plan for 2nd toe amp today Will work to construct comprehensive pain plan Depakote, baclofen, amitriptyline, magnesium #Intractable N/V resolved #Diarrhea resolved #HTN Continue lisinopril, metoprolol succinate, hydralazine PRN for sBP > 180 #T2DM Lantus 10 units HS Novolog: --Goal BSG Range: Low 110 mg/dL, High 140 mg/dL --Correction Factor: 40 mg/dL/unit --Carbohydrate ratio = 12 g/unit --BSGs ACHS if eating, q6h if npo #Gastroparesis VTE Prophylaxis - Lovenox 40mg SQ daily Diet - clears, advance as tolerated Admission and Anticipated Discharge Date Admission Date: May 18, 2023 Supervising Physician Co-Signing Physician Notes I personally examined the patient and verified all tanner points of history and exam, discussed case, and agree with decision making with Dr Valderrama Looking Colmer, brighter, and happier. Is wearing Grinch pajamas, but is aware that it is May, she just notes that they are cozy. Still having a good bit of pain, but more optimistic about the future. Notes that she pretty much took the Flexeril at home rarely and as needed only. Vitals noted, in general she is calm and in no distress breathing unlabored no accessory muscles good effort Foot wound/vascular insufficiency/toe ulcerationlocal wound care, appreciate podiatry input. Post amputation, probably no longer needing antibioticsawait surgical follow-up of wound, but doubt will need any prolonged course at all. Chronic painwill require multifactorial management. seems to be going reasonably well. Stop Flexerilespecially since she was not really taking it that often at home. Alter baclofen to 20 mg twice daily to make it easier for home. Increase Depakote (500 twice daily for nowanticipate rolling it over 2000 daily once she is discharged) continue amitriptyline at bedtime. Continue Dilaudid as needed for now. Pain psychology as an outpatient. Close outpatient follow-up. Nausea and vomiting is resolved. Otherwise as above DVT prophylaxisLovenox Subjective s/p left 2nd toe amputation. Tolerated procedure well. Pain well controlled. No other complaints No fever, no diarrhea today. Review of Systems Review of Systems: reviewed, per HPI Physical Exam Physical Exam: General: patient resting comfortably, NAD, non-toxic in appearance, AA&O x 4, answers questions appropriately and follows commands. Skin: warm, dry, intact HEENT: NC/AT, anicteric sclera, conjunctiva without injection, moist mucus membranes, trachea midline, no thyromegaly, no JVD Heart: +S1/S2, regular, no m/r/g Lungs: equal air entry bilaterally, no rales/rhonchi/wheezes Abd: +BS, soft, NT/ND, no masses/organomegaly/ascites Ext: R leg amputation. L foot wrapped clean and dry. s/p L 2nd toe amputation Neuro: nonfocal, patient AA&O x 4, speech intact, no facial droop, moving all extremities on command. Results & Data Results & Data Vital Signs (Past 12 Hours) Vital Signs Temp Pulse Pulse Resp BP BP Pulse Ox 05/24/23 19:58 05/25/23 02:51 36.9 C 78 16 121/55 L 96 05/24/23 22:32 36.4 C L 84 18 146/71 H 94 05/24/23 22:04 86/52 L 05/24/23 21:37 37.1 C 88 16 93/56 L 96 05/24/23 20:35 36.7 C 106 H 16 191/84 H 97 05/24/23 20:05 36.6 C 96 H 18 143/92 H 98 05/24/23 19:32 36.5 C 96 H 16 115/71 97 05/24/23 19:20 87 14 108/63 94 05/24/23 19:10 88 14 111/65 96 O2 Del Method 05/24/23 19:58 Room Air 05/25/23 02:51 Room Air 05/24/23 22:32 Room Air 05/24/23 22:04 05/24/23 21:37 Room Air 05/24/23 20:35 Room Air 05/24/23 20:05 Room Air 05/24/23 19:32 Room Air 05/24/23 19:20 Room Air 05/24/23 19:10 Room Air Resident Activity Tracking Resident Involvement: Resident Care Provided Care Provided: Adult Hospital Medicine
[2023-05-25] MEDS: CLOPIDOGREL BISULFATE 75 MG TAB PO SCH (08:11)
[2023-05-25] MEDS: DIVALPROEX EXTENDED RELEASE 500 MG TAB PO SCH ×2 (08:11→20:15)
[2023-05-25] MEDS: CYCLOBENZAPRINE HCL 5 MG TAB PO SCH (08:12)
[2023-05-25] MEDS: PRAZOSIN HCL 1 MG CAP PO SCH ×3 (08:12→20:16)
[2023-05-25] MEDS: PANTOprazole 40 MG TAB PO SCH ×2 (08:13→20:16)
[2023-05-25] MEDS: BACLOFEN 10 MG TAB PO SCH ×2 (08:13→14:22)
[2023-05-25] MEDS: ENOXAPARIN INJ 40 MG/0.4 ML SYR SQ SCH (08:14)
[2023-05-25] MEDS: INSULIN ASPART PER UNIT CHARGE SC SCH ×4 (10:06→20:23)
[2023-05-25] MEDS: DOCUSATE SODIUM 100 MG CAP PO SCH ×2 (10:11→20:22)
[2023-05-25] MEDS: DAPTOmycin 200 MG in SYRINGE 0 ML IV SCH (10:11)
[2023-05-25] MEDS: ALPRAZolam 0.5 MG TABLET PO PRN (12:57)
--- NOTE | 2023-05-25 17:59 | Billing Data ---
Date of Service May 25, 2023 Coding Level of Care Code 22455 SUB INP/OBS CARE MIN
--- NOTE | 2023-05-25 18:00 | Billing Data ---
Date of Service May 25, 2023 Coding Level of Care Code 56939 SUB INP/OBS CARE MIN
[2023-05-25] MEDS: AMITRIPTYLINE HCL 50 MG TAB PO SCH (20:14)
[2023-05-25] MEDS: BACLOFEN 20 MG TAB PO SCH (20:14)
[2023-05-25] MEDS: rOPINIRole HCL 2 MG TABLET PO SCH (20:17)
[2023-05-25] MEDS: LANTUS PER UNIT CHARGE SQ SCH (20:22)
[2023-05-25] MEDS: ZOLPIDEM TARTRATE 10 MG TAB PO PRN (20:22)
[2023-05-26] MEDS: HYDROmorphone INJ 1 MG/ML SYRINGE IV PRN ×7 (01:06→21:12)
[2023-05-26] MEDS: DIVALPROEX EXTENDED RELEASE 500 MG TAB PO SCH ×2 (08:15→21:09)
[2023-05-26] MEDS: CLOPIDOGREL BISULFATE 75 MG TAB PO SCH (08:15)
[2023-05-26] MEDS: BACLOFEN 20 MG TAB PO SCH ×2 (08:16→21:08)
[2023-05-26] MEDS: PANTOprazole 40 MG TAB PO SCH ×2 (08:16→21:10)
[2023-05-26] MEDS: ENOXAPARIN INJ 40 MG/0.4 ML SYR SQ SCH (08:16)
[2023-05-26] MEDS: PRAZOSIN HCL 1 MG CAP PO SCH ×3 (08:18→21:10)
[2023-05-26] MEDS: DOCUSATE SODIUM 100 MG CAP PO SCH ×2 (08:40→21:09)
[2023-05-26] MEDS: INSULIN ASPART PER UNIT CHARGE SC SCH ×4 (08:41→21:12)
--- NOTE | 2023-05-26 08:43 | Orthopedic Progress Note ---
Date of Service May 25, 2023 Assessment & Plan (1) Ulcer of second toe of left foot: Plan: Patient seen at bedside resting comfortably in E324-1. She is status post day #1 left second amputation. Awaiting culture and sensitivities. Pin point growth noted. Will continue to follow while in house. Thank you for allowing me to participate in the care of this Patient. (2) Diabetes mellitus type 2, uncontrolled: Admission and Anticipated Discharge Date Admission Date: May 18, 2023 Subjective Patient seen at bedside resting comfortably in E324-1. She is status post day #1 left second amputation. Review of Systems Review of Systems: All systems reviewed & are unremarkable except as noted in HPI & below Physical Exam Constitutional: comfortable Eyes: normal visual cardozo by confrontation Neck: trachea midline Respiratory: normal respiratory effort Cardiovascular: Vessels: posterior tibial pulses present and dorsalis pedis pulses present Musculoskeletal: Extremities: + amputation noted (Right AKA) and + foot abnormality (First and second toe amputation) Left Results & Data Vital Signs (Past 12 Hours) Vital Signs Temp Pulse Resp BP Pulse Ox O2 Del Method 05/26/23 08:00 36.7 C 97 H 16 177/79 H 94 Room Air 05/25/23 22:13 36.8 C 94 H 16 164/89 H 97 Room Air Diagnostic Findings [address], [place] [address] / Director: Sajan Hernandez M.D. Clinical Laboratory Report Name: EILEEN ESCOBAR Acct: [id number] Status: ADM IN : 1965 [facility] Date: 05/18/23 Age: 57 Sex: F Dis Date: Loc: Medical/Surgical/Ortho [address] [place] [address]/Bed: Banner Spec: [id number] Collected: 05/24/23-UNK Received: 05/24/[address]: Mathew Noriega, DPM, MS Copy To: Silvestre Best MD Source: Toe,Left OV Order: Ordered: Aer/Lucero Cult/Sm Comments: Comment 1. Left 2nd toe culture Procedure Result Verified Site Gram Stain Final 05/24/23 Gram Stain Result No WBCs Seen, No Organisms Seen Aero/Lucero Cult Preliminary 05/25/23 Pin-point growth present, reincubating. Name: EILEEN ESCOBAR : 1965 PAGE 1 Printed: 05/26/23 0820 END OF REPORT
[2023-05-26] MEDS: DAPTOmycin 200 MG in SYRINGE 0 ML IV SCH (10:54)
[2023-05-26] MEDS ORDERED: HYDROmorphone INJ 0.5 MG/0.5 ML SYR IV STA (13:39)
--- NOTE | 2023-05-26 16:11 | Hospitalist Progress Note ---
Date of Service May 26, 2023 Assessment & Plan (1) Ulcer of second toe of left foot: (2) Intractable nausea and vomiting: (3) Diarrhea: (4) HTN (hypertension): (5) Insomnia: (6) Diabetes mellitus type 2, uncontrolled: (7) Gastroparesis: Plan #Ulcer of 2nd toe of L foot - MRI 05/22/23 demonstrates osteomyelitis - s/p amputation of left 2nd toe. No signs of infection. No post-op fever present - Continue current abx -- Daptomycin May consider changing abx choice based on wound culture final result - Will work to construct comprehensive pain plan Dilaudid 1mg Q3H Depakote, baclofen, amitriptyline, magnesium #Intractable N/V resolved #Diarrhea resolved #HTN Continue lisinopril, metoprolol succinate, hydralazine PRN for sBP > 180 #T2DM Lantus 10 units HS Novolog: --Goal BSG Range: Low 110 mg/dL, High 140 mg/dL --Correction Factor: 40 mg/dL/unit --Carbohydrate ratio = 12 g/unit --BSGs ACHS if eating, q6h if npo #Gastroparesis Noted VTE Prophylaxis - Lovenox 40mg SQ daily Diet - clears, advance as tolerated Dispo: MedSurg; Discharge tomorrow if she remains clinically stable once cultures are available to ensure adequate antibiotic coverage after discharge Admission and Anticipated Discharge Date Admission Date: May 18, 2023 Supervising Physician Co-Signing Physician Notes I personally examined the patient and verified all tanner points of history and exam, discussed case, and agree with decision making with Dr Alvarado feeling ok except pain - doing reasonably well but notes pain fairly intense overall Vitals noted, in general she is calm and in no distress breathing unlabored no accessory muscles good effort Foot wound/vascular insufficiency/toe ulcerationlocal wound care, appreciate podiatry input. Post amputation, probably no longer needing antibioticsawaiting cultures, but doubt will need any prolonged course at all. Chronic painwill require multifactorial management. seems to be going reasonably well. Stopped Flexerilespecially since she was not really taking it that often at home. Alter baclofen to 20 mg twice daily to make it easier for home. Increased Depakote (500 twice daily for nowanticipate rolling it over 2000 daily once she is discharged) continue amitriptyline at bedtime. Continue Dilaudid as needed for now. Pain psychology as an outpatient. Close outpatient follow-up. Nausea and vomiting is resolved. Otherwise as above DVT prophylaxisLovenox Subjective Patient is s/p amputation of her 2nd toe in her left foot after ulcer and osteomyelitis on that area. Tolerated procedure well. She c/o having some pain on evaluation today, and refers worsened pain when standing to use her bedside commode. Her pain improves when she elevates her foot but is still present. Denies fevers, chills, chest pain, SOB, N/V, or any other symptom. Review of Systems Review of Systems: As per HPI. Physical Exam Physical Exam: General: Alert. Oriented to person, time, and place. Afebrile. No acute distress. Cardiac: Regular rate and rhythm, no murmurs/rubs/gallops. Respiratory: Clear to auscultation bilaterally a/p, no wheezes/rales/rhonchi. No increased work of breathing. Symmetrical chest rise. No respiratory distress. Abdomen: Soft, nontender, nondistended. Bowel sounds present. Lower Extremities: (R) leg amputated, (L)foot wrapped in bandages, no blood or erythema seen on top of her bandages, she refers pulsating sensation in her fo ot, especially when standing that is likely due to swelling Psych: Euthymic affect. Mood and affect congruence. Regular speech rate and content. Results & Data Results & Data Vital Signs (Past 12 Hours) Vital Signs Temp Pulse Resp BP Pulse Ox O2 Del Method 05/26/23 08:00 36.7 C 97 H 16 177/79 H 94 Room Air 05/25/23 20:14 Room Air 05/25/23 22:13 36.8 C 94 H 16 164/89 H 97 Room Air Resident Activity Tracking Resident Involvement: Resident Care Provided Care Provided: Adult Hospital Medicine
[2023-05-26] MEDS: ALPRAZolam 0.5 MG TABLET PO PRN (18:09)
--- NOTE | 2023-05-26 19:15 | Billing Data ---
Date of Service May 26, 2023 Coding Level of Care Code 75599 SUB INP/OBS CARE 3MIN
[2023-05-26] MEDS: AMITRIPTYLINE HCL 50 MG TAB PO SCH (21:08)
[2023-05-26] MEDS: rOPINIRole HCL 2 MG TABLET PO SCH (21:11)
[2023-05-26] MEDS: LANTUS PER UNIT CHARGE SQ SCH (21:11)
[2023-05-26] MEDS: ZOLPIDEM TARTRATE 10 MG TAB PO PRN (21:11)
[2023-05-27] MEDS: PROCHLORPERAZINE MALEATE 5 MG TAB PO PRN ×2 (05:04→12:34)
[2023-05-27] MEDS: HYDROmorphone INJ 1 MG/ML SYRINGE IV PRN ×6 (05:06→21:07)
[2023-05-27] MEDS: INSULIN ASPART PER UNIT CHARGE SC SCH ×4 (08:29→21:06)
[2023-05-27] MEDS: CLOPIDOGREL BISULFATE 75 MG TAB PO SCH (08:42)
[2023-05-27] MEDS: DIVALPROEX EXTENDED RELEASE 500 MG TAB PO SCH ×2 (08:43→21:11)
[2023-05-27] MEDS: PANTOprazole 40 MG TAB PO SCH ×2 (08:44→21:09)
[2023-05-27] MEDS: PRAZOSIN HCL 1 MG CAP PO SCH ×3 (08:44→21:11)
[2023-05-27] MEDS: ENOXAPARIN INJ 40 MG/0.4 ML SYR SQ SCH (08:45)
[2023-05-27] MEDS: DOCUSATE SODIUM 100 MG CAP PO SCH ×2 (08:50→22:35)
[2023-05-27] MEDS: BACLOFEN 20 MG TAB PO SCH ×2 (08:51→21:09)
[2023-05-27] MEDS: DAPTOmycin 200 MG in SYRINGE 0 ML IV SCH (10:28)
--- NOTE | 2023-05-27 12:01 | Discharge Summary ---
Date of Service May 28, 2023 Admission HPI Per Admitting Provider Chief Complaint: Right groin pain, Left 2nd toe pain, nausea, vomiting, diarrhea Primary Care Provider: DO Mariana Henao is a 57 year old female who presents to the ER with right groin pain, left 2nd toe pain, nausea, vomiting and watery diarrhea. She was recently on May 11 with similar symptoms. At that time blood cultures were negative, Rivas line was removed as it was causing her pain and antibiotics were transitioned to clindamycin after MRSA bacteremia was ruled out. After discharge she had slowly worsening nausea and vomiting. She reports for the last two days she has been unable to keep anything down. Diarrhea for last 2 days has been yellow, strong odor and watery. She feels increased pain in her 2nd toe and increased erythema. No fever or chills. Admission Exam Per Admitting Provider Constitutional: well developed and + acute distress (in pain); + not well n ourished Eyes: PERRL, conjunctivae normal, anicteric sclerae Respiratory: normal respiratory effort, lungs clear to auscultation Cardiovascular: RRR, no murmur, no edema Vessels: dorsalis pedis pulses present (left); + posterior tibial pulses abnormal (unable to palpate) Gastrointestinal (Abdomen): Inspection/Auscultation: abdomen normal to inspection; abdomen not distended Percussion/Palpation: + abdomen tender (generalized) and abdomen soft; no guarding and abdomen not rigid Skin: ulcer in 2nd toe with healthy appearing underling tissue, mild erythema surrounding this ulcer (similar in appearance to last admission) No skin changes in right groin Neurologic: moves all extremities and awake; not confused Psychiatric: Orientation: alert and oriented x 3 Affect: + anxious affect and + tearful affect Genitourinary: no CVA tenderness Principal Diagnosis Osteomyelitis of 2nd toe in left foot Discharge Exam General: Alert. Oriented to person, time, and place. Afebrile. No acute distress. Cardiac: Regular rate and rhythm, no murmurs/rubs/gallops. Respiratory: Clear to auscultation bilaterally a/p, no wheezes/rales/rhonchi. No increased work of breathing. Symmetrical chest rise. No respiratory distress. Abdomen: Soft, nontender, nondistended. Bowel sounds present. Lower Extremities: (R) leg amputated, (L)foot wrapped in bandages, no blood or erythema seen on top of her bandages, she refers pulsating sensation in her foot, especially when standing that is likely due to swelling Psych: Euthymic affect. Mood and affect congruence. Regular speech rate and content. Discharge Data Allergies Allergy/AdvReac Type Severity Reaction Status Date / Time morphine Allergy Severe blisters Verified 05/18/23 11:52 in mouth Sulfa (Sulfonamide Allergy Severe rash/swelli Verified 05/18/23 11:52 Antibiotics) ng amoxicillin [From Augmentin] Allergy Intermediate itching/power Verified 05/18/23 11:52 h ceftriaxone [From Rocephin] Allergy Intermediate Hives Verified 05/18/23 11:52 clavulanic acid Allergy Intermediate itching/power Verified 05/18/23 11:52 [From Augmentin] h erythromycin base Allergy Intermediate Hives Verified 05/18/23 11:52 iron [From Venofer] Allergy Intermediate Hypertensio Verified 05/18/23 11:52 n vancomycin Allergy Intermediate YULIYA Verified 05/18/23 11:52 SYNDROME---CAN TAKE IF VERY SLOW DRIP. adhesive AdvReac Intermediate DERMABOND Verified 05/18/23 11:52 excoriates skin Consultations 05/18/23 10:59 ED Decision to Admit Stat 05/21/23 13:30 Consult Podiatry Routine Procedures Performed Operation Date: 05/24/23 09:05 Actual Procedures p Left 2nd Toe Amputation(Left) - Mathew Noriega DPM, MS Ordered Studies 05/18/23 09:34 US venous doppler LE RT Stat 05/22/23 14:07 MR foot LT w/o con Routine Hospital Course (1) Ulcer of second toe of left foot: (2) Intractable nausea and vomiting: (3) Diarrhea: (4) HTN (hypertension): (5) Insomnia: (6) Diabetes mellitus type 2, uncontrolled: (7) Gastroparesis: Plan #Ulcer of 2nd toe of L foot (Resolved) - MRI 05/22/23 demonstrates osteomyelitis - s/p amputation of left 2nd toe. No signs of infection. No post-op fever present - D/c Daptomycin - Per chart review, patient (or family member) recently picked up prescription for Percocet in her pharmacy a few days ago. - Will send prescriptions for Amitriptyline, Depakote, and Baclofen for pain control as well. #Intractable N/V (Resolved) #Diarrhea (Resolved) #HTN (Chronic, stable) Continue lisinopril, metoprolol succinate, and Prazosin Patient counseled to monitor home BP measurements twice a day #T2DM (Chronic stable) Continue home regimen #Gastroparesis (Chronic, stable) Patient was evaluated today and found clinically and hemodynamically stable. She was found to be fit for discharge today with close follow up by her PCP and her surgeon. All questions were answered. Total Time Total Time Spent Total Time Spent (In Minutes): As per attending attestation. Discharge Plan Discharge Items Patient Disposition: Home - Self-Care Reason For Visit: DIARRHEA WITH INTRACTABLE NAUSEA,VOMITING,POSS SEP Discharge Diagnosis: Left 2nd toe osteomyelitis; s/p amputation of left 2nd toe Condition on Discharge: Good Activity: Per Instructions section Non-emergency contact: Primary Care Provider Call non-emergency contact if: your symptoms worsen and your temperature is above 101 Follow-up/Referrals: Vince Vernon DO [Primary Care Provider] - Cammie Alvarado MD [Resident] - Diet: Carb Consistent or DM2 Addtl Attending Provider Instructions: You were admitted to the hospital due to intractable nausea, vomiting and diarrhea. After some lab tests, this was found to be related to a bacteria, and you were treated for it with successful resolution of your symptoms. On admission, you were also found to have an ulcer in the 2nd toe of your left foot. On imaging of this toe, it was found that you had infection of the bone beneath this ulcer. Due to risk of worsening infection or this infection of the bone spreading somewhere else, the general surgery team was consulted to evaluate, and it was found that you would benefit best from an amputation of your 2nd toe in your left foot. You underwent this procedure without complications. In the meantime, you were also treated with Daptomycin (antibiotic), which will be discontinued after your discharge. On chart review, we found that you recently had a prescription for Percocet filled in your pharmacy, and so we will not be sending additional pain medication prescriptions. We also encourage you to follow up with a pain psychologist since your pain may also be impacted/worsened by a potential underlying psychological factor. Close follow up with your Primary Care Provider is also important after your discharge to monitor your progression. A discharge summary will be sent to your primary care physician to ensure continuity of care. Please bring this discharge summary with you to your next office appointment so that your provider can review it at that time. Follow-up appointments: Make a follow-up appointment with your PCP within the next week. It is very important that you follow up with them shortly after discharge from the hospital. Keep all your follow-up appointments as already scheduled. If you cannot make an appointment, notify your provider. Medications: Your medication list has been reviewed and reconciled upon discharge to ensure accuracy and continuity of care. An updated list of all your medications is included with your hospital discharge paperwork. Please review this list closely, and make note of any changes. A new medication called Amitriptyline was sent to your pharmacy. Please take Amitriptyline 50mg by mouth every day. A new medication called Baclofen was sent to your pharmacy. Please take Baclofen 20mg by mouth two times a day (every 12 hours). A new medication called Divalproex (Depakote) was sent to your pharmacy. Please take Depakote 500mg by mouth two times a day (every 12 hours). If you have any issues filling these prescriptions, please call [phone] and ask to leave a message for Dr. Alvarado. Take your medications as instructed; do not skip a dose of your medicines. Make sure all of your doctors know every medicine you are taking (including dskr-sbn-xoxgehh medicines, vitamins, and supplements). Call your primary care provider before taking any new medicines (including over- the-counter medicines, vitamins, and supplements), because some of these may interact with your current medications, or may make your symptoms worse. Tell your primary care provider if you cannot afford your medications. CONTACT YOUR PRIMARY CARE PROVIDER if you experience any of the following: Worsening of symptoms Fever, chills, or fatigue Difficulty following your treatment plan, or difficulty taking medications CALL 911 OR GO TO THE EMERGENCY DEPARTMENT if you experience any of the following: Sudden, severe abdominal pain or nausea/vomiting Severe chest pain, or chest pain that radiates (moves) to your jaw or arm Sudden, severe shortness of breath or difficulty breathing Thank you for allowing us to participate in your care. Pending Studies at Discharge: No Stand-Alone Forms: My [employer], Smoking Cessation Medications and DC Order Prescriptions: New amitriptyline 50 mg Tablet 50 mg PO HS 30 Days Qty: 30 0RF baclofen 20 mg Tablet 20 mg PO BID 30 Days Qty: 60 0RF divalproex 500 mg Tablet Extended Release 24 Hr 500 mg PO BID 30 Days Qty: 60 0RF Continued oxycodone-acetaminophen 5-325 mg tablet 2 tab PO Q4H PRN (Reason: Severe Pain (Scale Score 7-10)) Rx Instructions: right ankle and joints of right foot pain prochlorperazine maleate 5 mg tablet 5 mg PO Q6H PRN (Reason: Nausea) ropinirole 2 mg Tablet 4 mg PO HS zolpidem 10 mg tablet 10 mg PO HS PRN (Reason: Sleep) Rx Instructions: do not take within 3 hours of opiod pain med insulin lispro 100 unit/mL insulin pen 5 unit SUBCUT TIDM Rx Instructions: plus sliding scale insulin glargine [Lantus Solostar U-100 Insulin] 100 unit/mL (3 mL) insulin pen 10 unit SUBCUT DAILY metoprolol succinate [Toprol XL] 50 mg tablet extended release 24 hr 50 mg PO QAM albuterol sulfate 90 mcg/actuation HFA aerosol inhaler 2 puff INHALATION Q6 PRN (Reason: Shortness Of Breath Or Wheezing) prazosin 1 mg capsule 1 mg PO TID lisinopril 10 mg tablet 10 mg PO DAILY gentamicin 0.1 % ointment 1 applic TOPICAL DAILY cyclobenzaprine 10 mg tablet 10 mg PO AMPM ondansetron HCl 4 mg tablet 4 mg PO HS PRN (Reason: Nausea) pantoprazole 40 mg tablet,delayed release (DR/EC) 40 mg PO BID docusate sodium 100 mg Capsule 100 mg PO BID alprazolam 1 mg tablet 1 mg PO TID PRN (Reason: Anxiety) clopidogrel [Plavix] 75 mg tablet 75 mg PO DAILY Qty: 30 0RF Admission Data Admit Date/Time: 05/18/23 12:41 Attending Provider: Jon Whaley Admit Provider: Silvestre Best Primary Care Provider: Vince Vernon Other Providers: Silvestre Best ; Mathew Noriega Resident Activity Tracking Resident Involvement: Resident Care Provided Care Provided: Adult [facility] Medicine
--- NOTE | 2023-05-27 14:41 | Hospitalist Progress Note ---
Date of Service May 27, 2023 Assessment & Plan (1) Ulcer of second toe of left foot: (2) Intractable nausea and vomiting: (3) Diarrhea: (4) HTN (hypertension): (5) Insomnia: (6) Diabetes mellitus type 2, uncontrolled: (7) Gastroparesis: Plan #Ulcer of 2nd toe of L foot - MRI 05/22/23 demonstrates osteomyelitis - s/p amputation of left 2nd toe. No signs of infection. No post-op fever. - D/c Daptomycin today - Continue Dilaudid 1mg q3h prn, as well as Amitriptyline, Depakote, and Baclofen for pain control. #Intractable N/V Resolved #Diarrhea Resolved #HTN Continue lisinopril, metoprolol succinate, and Prazosin #T2DM Lantus 10 units HS Novolog: --Goal BSG Range: Low 110 mg/dL, High 140 mg/dL --Correction Factor: 40 mg/dL/unit --Carbohydrate ratio = 12 g/unit --BSGs ACHS if eating, q6h if npo #Gastroparesis Noted VTE Prophylaxis - Lovenox 40mg SQ daily Diet - clears, advance as tolerated Dispo: MedSurg; Discharge tomorrow if she remains clinically stable Admission and Anticipated Discharge Date Admission Date: May 18, 2023 Supervising Physician Co-Signing Physician Notes I personally examined the patient and verified all tanner points of history and exam, discussed case, and agree with decision making with Dr Alvarado feeling ok except pain - But feels optimistic about the future. Notes that she would much prefer to go home tomorrowher is at work today, but then off tomorrow for 3 daysand she feels she will have a much better transition home if she is not alone. In discussion of the overall picture of chronic pain management, we discussed looking at things both "from the bottom up" (the somatic/organic hazmat cdl a driver of the pain, the peripheral neuropathic pain, and the MEAL TEMPERER perception of pain), as well as "from the top down" (the psychology of pain and how are responses/coping skills/etc. can impact the pain itself as well as quality of life)he expressed an understanding and a strong desire to do what she can. In discussion of acute pain managementwe discussed that certainly with having just had a foot surgery, some degree of narcotics plays a role, albeit hopefully temporary. At the same time we discussed her chronic regimenr angelica now most recently having been prescribed 180 oxycodone this month. She notes that she really would like to get off of the pain medicines, and that often when she is prescribed things, she does have leftovers into the next months. We discussed reasonable pattern for weaningworking on overall better pain control in a mind-body approach, and then slowly titrating down the oxycodone. She actually expressed an optimism of weaning to 0 narcotic medicine pace much faster than I would suspect is realistic, but we discussed that that is a great overall goal. Vitals noted, in general she is calm and in no distress breathing unlabored no accessory muscles good effort Foot wound/vascular insufficiency/toe ulcerationlocal wound care, appreciate podiatry input. Post amputation, No need for further antibiotics. Chronic painwill require multifactorial management. seems to be going reasonably well. Stopped Flexerilespecially since she was not really taking it that often at home. Alter baclofen to 20 mg twice daily to make it easier for home. Increased Depakote (500 twice daily for nowanticipate rolling it over to 1000 daily once she is discharged) continue amitriptyline at bedtime. Continue Dilaudid as needed for now. Pain psychology as an outpatient. Close outpatient follow-up. Nausea and vomiting is resolved. Otherwise as above DVT prophylaxisLovenox Subjective Patient is s/p amputation of her 2nd toe in her left foot after ulcer and osteomyelitis on that area. Tolerated procedure well. She c/o having some pain on evaluation today, and refers worsened pain when standing to use her bedside commode. Her pain improves when she elevates her foot but is still present. Also endorses some nausea but no vomiting. Denies fevers, chills, chest pain, SOB, bowel movement changes, or any other symptom. Review of Systems Review of Systems: As per HPI. Physical Exam Physical Exam: General: Alert. Oriented to person, time, and place. Afebrile. No acute distress. Cardiac: Regular rate and rhythm, no murmurs/rubs/gallops. Respiratory: Clear to auscultation bilaterally a/p, no wheezes/rales/rhonchi. No increased work of breathing. Symmetrical chest rise. No respiratory distress. Abdomen: Soft, nontender, nondistended. Bowel sounds present. Lower Extremities: (R) leg amputated, (L)foot wrapped in bandages, no blood or erythema seen on top of her bandages, she refers pulsating sensation in her foot, especially when standing that is likely due to swelling Psych: Euthymic affect. Mood and affect congruence. Regular speech rate and content. Results & Data Results & Data Vital Signs (Past 12 Hours) Vital Signs Temp Pulse Resp BP Pulse Ox O2 Del Method 05/27/23 13:58 108 H 178/91 H 97 Room Air 05/27/23 07:01 36.5 C 108 H 16 182/92 H 96 Room Air Resident Activity Tracking Resident Involvement: Resident Care Provided Care Provided: Adult Hospital Medicine
--- NOTE | 2023-05-27 18:59 | Billing Data ---
Date of Service May 27, 2023 Coding Level of Care Code 45443 SUB INP/OBS CARE 3MIN
--- NOTE | 2023-05-27 20:21 | Orthopedic Progress Note ---
Date of Service May 27, 2023 Assessment & Plan (1) Ulcer of second toe of left foot: Plan: Patient seen at bedside resting comfortably in E324-1. She is status post day #3 left second amputation. Awaiting culture and sensitivities and pathology. Will continue to follow while in house. Thank you for allowing me to participate in the care of this Patient. (2) Diabetes mellitus type 2, uncontrolled: Admission and Anticipated Discharge Date Admission Date: May 18, 2023 Subjective Patient seen at bedside this morning. She relates pain in leg and thigh and inquires about timing of pain medications. Patient is status post left second toe amputation. Review of Systems Review of Systems: All systems reviewed & are unremarkable except as noted in HPI & below Physical Exam Constitutional: cooperative and comfortable Eyes: normal visual cardozo by confrontation Neck: trachea midline Respiratory: normal respiratory effort Cardiovascular: Vessels: posterior tibial pulses present and dorsalis pedis pulses present Musculoskeletal: Extremities: + amputation noted (Right AKA) and + foot abnormality (First and second toe amputation) Skin: + ulcer (Left second toe partial thickness wound) Neurologic: moves all extremities (Absent epicritic sensation.) Psychiatric: Orientation: alert and oriented x 3 Results & Data Vital Signs (Past 12 Hours) Vital Signs Temp Pulse Resp BP Pulse Ox O2 Del Method 05/27/23 15:57 36.6 C 105 H 16 131/79 98 Room Air 05/27/23 13:58 108 H 178/91 H 97 Room Air
[2023-05-27] MEDS: LANTUS PER UNIT CHARGE SQ SCH (21:06)
[2023-05-27] MEDS: rOPINIRole HCL 2 MG TABLET PO SCH (21:10)
[2023-05-27] MEDS: AMITRIPTYLINE HCL 50 MG TAB PO SCH (21:12)
[2023-05-27] MEDS: ZOLPIDEM TARTRATE 10 MG TAB PO PRN (22:35)
[2023-05-28] MEDS: HYDROmorphone INJ 1 MG/ML SYRINGE IV PRN ×5 (00:29→13:35)
[2023-05-28] MEDS: DOCUSATE SODIUM 100 MG CAP PO SCH (07:28)
[2023-05-28] MEDS: BACLOFEN 20 MG TAB PO SCH (07:28)
[2023-05-28] MEDS: DIVALPROEX EXTENDED RELEASE 500 MG TAB PO SCH (07:28)
[2023-05-28] MEDS: CLOPIDOGREL BISULFATE 75 MG TAB PO SCH (07:29)
[2023-05-28] MEDS: PANTOprazole 40 MG TAB PO SCH (07:29)
[2023-05-28] MEDS: ENOXAPARIN INJ 40 MG/0.4 ML SYR SQ SCH (07:29)
[2023-05-28] MEDS: PRAZOSIN HCL 1 MG CAP PO SCH (07:30)
--- NOTE | 2023-05-28 07:34 | Discharge Summary ---
Date of Service May 28, 2023 Admission HPI Per Admitting Provider Chief Complaint: Right groin pain, Left 2nd toe pain, nausea, vomiting, diarrhea Primary Care Provider: DO Mariana Henao is a 57 year old female who presents to the ER with right groin pain, left 2nd toe pain, nausea, vomiting and watery diarrhea. She was recently on May 11 with similar symptoms. At that time blood cultures were negative, Rivas line was removed as it was causing her pain and antibiotics were transitioned to clindamycin after MRSA bacteremia was ruled out. After discharge she had slowly worsening nausea and vomiting. She reports for the last two days she has been unable to keep anything down. Diarrhea for last 2 days has been yellow, strong odor and watery. She feels increased pain in her 2nd toe and increased erythema. No fever or chills. Admission Exam Per Admitting Provider Constitutional: well developed and + acute distress (in pain); + not well n ourished Eyes: PERRL, conjunctivae normal, anicteric sclerae Respiratory: normal respiratory effort, lungs clear to auscultation Cardiovascular: RRR, no murmur, no edema Vessels: dorsalis pedis pulses present (left); + posterior tibial pulses abnormal (unable to palpate) Gastrointestinal (Abdomen): Inspection/Auscultation: abdomen normal to inspection; abdomen not distended Percussion/Palpation: + abdomen tender (generalized) and abdomen soft; no guarding and abdomen not rigid Skin: ulcer in 2nd toe with healthy appearing underling tissue, mild erythema surrounding this ulcer (similar in appearance to last admission) No skin changes in right groin Neurologic: moves all extremities and awake; not confused Psychiatric: Orientation: alert and oriented x 3 Affect: + anxious affect and + tearful affect Genitourinary: no CVA tenderness Principal Diagnosis osteomyelitis Discharge Exam Constitutional WD/WN, vitals as above Respiratory normal respiratory effort, lungs clear to auscultation Cardiovascular RRR, no murmur, no edema Gastrointestinal (Abdomen) bowel sounds intact, abdomen non-distended Skin no rashes, warm and dry Left foot with clean dressing, right leg amputated Psychiatric A+Ox3, euthymic affect Discharge Data Allergies Allergy/AdvReac Type Severity Reaction Status Date / Time morphine Allergy Severe blisters Verified 05/18/23 11:52 in mouth Sulfa (Sulfonamide Allergy Severe rash/swelli Verified 05/18/23 11:52 Antibiotics) ng amoxicillin [From Augmentin] Allergy Intermediate itching/power Verified 05/18/23 11:52 h ceftriaxone [From Rocephin] Allergy Intermediate Hives Verified 05/18/23 11:52 clavulanic acid Allergy Intermediate itching/power Verified 05/18/23 11:52 [From Augmentin] h erythromycin base Allergy Intermediate Hives Verified 05/18/23 11:52 iron [From Venofer] Allergy Intermediate Hypertensio Verified 05/18/23 11:52 n vancomycin Allergy Intermediate YULIYA Verified 05/18/23 11:52 SYNDROME---CAN TAKE IF VERY SLOW DRIP. adhesive AdvReac Intermediate DERMABOND Verified 05/18/23 11:52 excoriates skin Consultations 05/18/23 10:59 ED Decision to Admit Stat 05/21/23 13:30 Consult Podiatry Routine 05/27/23 19:02 Consult ROSAG manager transfer Routine Procedures Performed Operation Date: 05/24/23 09:05 Actual Procedures p Left 2nd Toe Amputation(Left) - Mathew Noriega, HANSM, MS Ordered Studies 05/18/23 09:34 US venous doppler LE RT Stat 05/22/23 14:07 MR foot LT w/o con Routine Hospital Course (1) Ulcer of second toe of left foot: (2) Intractable nausea and vomiting: (3) Diarrhea: (4) HTN (hypertension): (5) Insomnia: (6) Diabetes mellitus type 2, uncontrolled: (7) Gastroparesis: Plan #Ulcer of 2nd toe of L foot (Resolved) vascular insufficiency - probable stenosis - proximal left common femoral artery - MRI 05/22/23 demonstrated osteomyelitis - s/p amputation of left 2nd toe. No signs of infection. No post-op fever. - Patient was initially treated with Daptomycin, discontinued before discharge local wound care - outpatient podiatry follow up #Chronic pain Needing multifactorial management. Stopped Flexerilespecially since she was not really taking it that often at home. Alter baclofen to 20 mg twice daily to make it easier for home. Increased Depakote (500 twice daily for nowanticipate rolling it over to 1000 daily once she is discharged) continue amitriptyline at bedtime. Continue Dilaudid as needed for now. Pain psychology as an outpatient. Close outpatient follow-up. - Sent prescriptions for Amitriptyline, Depakote, and Baclofen for pain control as well. #Intractable N/V (Resolved) #Diarrhea (Resolved) #Gastroparesis (Chronic, stable) -Sec to underlying DM gastroparesis and polypharmacy. -Discussed lifestyle modification -prn antiemetics. #HTN (Chronic, stable) Continue lisinopril, metoprolol succinate, and Prazosin Patient counseled to monitor home BP measurements twice a day #T2DM (Chronic stable) Continue home regimen #PAD doppler from apr 2023. further Outpatient follow up Patient was evaluated today and found to be clinically and hemodynamically stable. She was found to be fit for discharge today with close follow up by her PCP and her surgeon. All questions were answered. Total Time Total Time Spent Total Time Spent (In Minutes): see attending attestation Discharge Plan Discharge Items Patient Disposition: Home - Self-Care Reason For Visit: DIARRHEA WITH INTRACTABLE NAUSEA,VOMITING,POSS SEP Discharge Diagnosis: Left 2nd toe osteomyelitis; s/p amputation of left 2nd toe Condition on Discharge: Good Activity: Per Instructions section Non-emergency contact: Primary Care Provider Call non-emergency contact if: your symptoms worsen and your temperature is above 101 Follow-up/Referrals: Vince Vernon DO [Primary Care Provider] - Mathew Noriega DPM, MS [Physician] - 06/07/23 10:30 am (ADDRESS FOR APPOINTMENT: [address] [place] [address] [address] [place] [address]) Cammie Alvarado MD [Resident] - Diet: Carb Consistent or DM2 Addtl Attending Provider Instructions: You were admitted to the hospital due to intractable nausea, vomiting and diarrhea. After some lab tests, this was found to be related to a bacteria, and you were treated for it with successful resolution of your symptoms. On admission, you were also found to have an ulcer in the 2nd toe of your left foot. On imaging of this toe, it was found that you had infection of the bone beneath this ulcer. Due to risk of worsening infection or this infection of the bone spreading somewhere else, the general surgery team was consulted to evaluate, and it was found that you would benefit best from an amputation of your 2nd toe in your left foot. You underwent this procedure without complications. In the meantime, you were also treated with Daptomycin (antibiotic), which will be discontinued after your discharge. On chart review, we found that you recently had a prescription for Percocet filled in your pharmacy, and so we will not need to be sending additional pain medication prescriptions. We also encourage you to follow up with a pain psychologist since all pain is "mind/body" and we'll want to build BOTH a "bottom up" (from the foot to the nerves to the part of your brain that perceives pain) and "top down" (from how we perceive pain/interpret pain/coping skills/etc). Close follow up with your Primary Care Provider is also important after your discharge to monitor your progression. A discharge summary will be sent to your primary care physician to ensure continuity of care. Please bring this discharge summary with you to your next office appointment so that your provider can review it at that time. Follow-up appointments: Make a follow-up appointment with your PCP within the next week. It is very important that you follow up with them shortly after discharge from the hospital. Keep all your follow-up appointments as already scheduled. If you cannot make an appointment, notify your provider. Medications: Your medication list has been reviewed and reconciled upon discharge to ensure accuracy and continuity of care. An updated list of all your medications is included with your hospital discharge paperwork. Please review this list closely, and make note of any changes. A new medication called Amitriptyline was sent to your pharmacy. Please take Amitriptyline 50mg by mouth every day. A new medication called Baclofen was sent to your pharmacy. Please take Baclofen 20mg by mouth two times a day (every 12 hours). A new medication called Divalproex (Depakote) was sent to your pharmacy. Please take Depakote 500mg by mouth two times a day (every 12 hours). If you have any issues filling these prescriptions, please call [phone] and ask to leave a message for Dr. Alvarado. Take your medications as instructed; do not skip a dose of your medicines. Make sure all of your doctors know every medicine you are taking (including pikl-qrz-pyproli medicines, vitamins, and supplements). Call your primary care provider before taking any new medicines (including over- the-counter medicines, vitamins, and supplements), because some of these may interact with your current medications, or may make your symptoms worse. Tell your primary care provider if you cannot afford your medications. CONTACT YOUR PRIMARY CARE PROVIDER if you experience any of the following: Worsening of symptoms Fever, chills, or fatigue Difficulty following your treatment plan, or difficulty taking medications CALL 911 OR GO TO THE EMERGENCY DEPARTMENT if you experience any of the following: Sudden, severe abdominal pain or nausea/vomiting Severe chest pain, or chest pain that radiates (moves) to your jaw or arm Sudden, severe shortness of breath or difficulty breathing Thank you for allowing us to participate in your care. Pending Studies at Discharge: No Stand-Alone Forms: My [facility], Smoking Cessation Medications and DC Order Prescriptions: New amitriptyline 50 mg Tablet 50 mg PO HS 30 Days Qty: 30 0RF baclofen 20 mg Tablet 20 mg PO BID 30 Days Qty: 60 0RF divalproex 500 mg Tablet Extended Release 24 Hr 500 mg PO BID 30 Days Qty: 60 0RF Continued oxycodone-acetaminophen 5-325 mg tablet 2 tab PO Q4H PRN (Reason: Severe Pain (Scale Score 7-10)) Rx Instructions: right ankle and joints of right foot pain prochlorperazine maleate 5 mg tablet 5 mg PO Q6H PRN (Reason: Nausea) ropinirole 2 mg Tablet 4 mg PO HS zolpidem 10 mg tablet 10 mg PO HS PRN (Reason: Sleep) Rx Instructions: do not take within 3 hours of opiod pain med insulin lispro 100 unit/mL insulin pen 5 unit SUBCUT TIDM Rx Instructions: plus sliding scale insulin glargine [Lantus Solostar U-100 Insulin] 100 unit/mL (3 mL) insulin pen 10 unit SUBCUT DAILY metoprolol succinate [Toprol XL] 50 mg tablet extended release 24 hr 50 mg PO QAM albuterol sulfate 90 mcg/actuation HFA aerosol inhaler 2 puff INHALATION Q6 PRN (Reason: Shortness Of Breath Or Wheezing) prazosin 1 mg capsule 1 mg PO TID lisinopril 10 mg tablet 10 mg PO DAILY gentamicin 0.1 % ointment 1 applic TOPICAL DAILY ondansetron HCl 4 mg tablet 4 mg PO HS PRN (Reason: Nausea) pantoprazole 40 mg tablet,delayed release (DR/EC) 40 mg PO BID docusate sodium 100 mg Capsule 100 mg PO BID alprazolam 1 mg tablet 1 mg PO TID PRN (Reason: Anxiety) clopidogrel [Plavix] 75 mg tablet 75 mg PO DAILY Qty: 30 0RF Discontinued cyclobenzaprine 10 mg tablet 10 mg PO AMPM Discharge Orders: Discharge Order (Routine); Ordered 05/28/23 Ordered By: Elias Chávez Admission Data Admit Date/Time: 05/18/23 12:41 Attending Provider: Marian Quintana Admit Provider: Silvestre Best Primary Care Provider: Vince Vernon Other Providers: Silvestre Best ; Mathew Noriega ; Jon Whaley Other Interventions: Discharge Summary Assessment (RN) Last Done: 05/28/23 10:07 Supervising Physician Co-Signing Physician Notes Resident Physician Supervision Note: I independently interviewed and examined the patient and verified the tanner history and physical, reviewed labs and image studies and agree with resident findings and care plan. Resident Activity Tracking Resident Involvement: Resident Care Provided Care Provided: Adult Hospital Medicine
[2023-05-28] MEDS: INSULIN ASPART PER UNIT CHARGE SC SCH ×2 (08:39→11:49)
== END 2023-05-28 14:28 | disposition home or self-care (01) | DRG 505 ==
LOC: ED 08:51 → EDINP 12:41 → SUATTDRO 12:41 → 3E 14:33

== ENCOUNTER 2023-06-13 17:46 | Inpatient (IN) ==
--- NOTE | 2023-06-13 18:26 | Emergency Department Note ---
Impression & Plan Acute herpes zoster neuropathy, Diabetic foot ulcer ED Provider Note NAME: EILEEN ESCOBAR AGE: 58 SEX: F : 1965 ARRIVES VIA: Ambulance INFORMANT: Patient, ED PROVIDER(S): Dali Cohen MD CHIEF COMPLAINT: Nausea/vomiting HPI: This is a 58-year-old female with history of MRSA bacteremia, hypertension, osteomyelitis, diabetes, PAD presenting for nausea/vomiting. Patient states that over the past few days she has noticed increasing nausea with vomiting. She said the last episode happened she was septic. She notes that about 3 weeks ago she had her left toe removed, she was supposed to get stitches removed today who was unable to. She notes that on the adjacent toenail there is new redness and pain. She also notes that she has had new pain in her upper back over the past few days. States it is a sharp sensation and just recently began having a rash. ROS: See above HPI for pertinent positives & negatives. A total of 10 systems reviewed and were otherwise negative. PAST MEDICAL HISTORY: See Below PAST SURGICAL HISTORY: See Below FAMILY HISTORY: See Below SOCIAL HISTORY: See Below HOME MEDICATIONS: See Below ALLERGIES: See Below VITALS: See Below PHYSICAL EXAMINATION: General: Chronically ill-appearing, tearful Head: Normocephalic and atraumatic Eyes: Normal inspection, extraocular muscles intact, no conjunctival pallor Ear, nose, throat: Normal external exam Neck: Normal range of motion Respiratory: Patient is in no respiratory distress, lungs clear to auscultation bilaterally Cardiovascular: RRR without murmur appreciated GI: soft, nontender, no guarding or rebound Extremities: Right BKA, left foot shows for second toe amputation, sutures still in place, base of third toe shows erythema, irritation, 1+ pulse DP/PT Neuro: The patient awake and alert, appropriately conversive,no focal decifits Skin: Maculopapular rash to the posterior upper back MEDICAL DECISION MAKING: This is a 58-year-old female presenting for nausea/vomiting as well as upper back pain. Patient has numerous possible etiologies at this time. She notes new/worsening left foot pain at the area where she had a previous amputation of the toe. In addition now she complained of nausea with vomiting which is ty pical for her when she is septic. Otherwise she notes now new pain to her upper back with associated rash. This is concerning for shingles clinically based on appearance of the rash. Patient does mention she had chickenpox as a child. Patient has rest pain medicine. Given IV Dilaudid for pain control patient is a chronic opiates. Otherwise gabapentin considered and given however patient refu ses. Patient's left foot x-ray independently interpreted by me shows stable appearing amputations without acute fracture, dislocation or bony destruction consistent with osteomyelitis. Blood work interpreted by me showing leukocytosis at 13.65, lactic acid level of 2, no electrolyte disturbances. Patient does have persistent nausea/vomiting despite Zofran administration. She mentions last time this happened she was septic. While she has low suspicion for sepsis based on her vital signs she may have worsening infection as there is new redness to her third toe next to the previous amputation. Triage Nursing notes reviewed. Prior medical records reviewed Vital Signs: reviewed and remarkable for no significant abnormalities Differential diagnosis: Osteomyelitis, sepsis, shingles ER treatment provided: See below Diagnostics interpreted by me: ECG: None Cardiac Monitoring: An order was placed for continuous cardiac monitoring. The monitor shows a rate of 74 with sinus rhythm. Laboratory studies: As stated above and show below. Imaging studies: See below. Radiographic imaging was reviewed by myself Consultation(s): None Past Med/Surg History Medical History Abdominal pain Acidosis, lactic Acute dehydration 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 No issues per anesthesia postop progress note. Anemia Benzodiazepine dependence Benzodiazepine withdrawal CAD (coronary artery disease) Cellulitis Chronic back pain Chronic pain syndrome Costochondritis COVID-19 Depression Diabetes mellitus type 2, uncontrolled Diabetic neuropathy Diabetic peripheral neuropathy Diastolic CHF DM2 (diabetes mellitus, type 2) IDDM, A1c 07/2021-11% Esophagitis determined by endoscopy Gastritis Gastroenteritis Gastroparesis GIB (gastrointestinal bleeding) History of amputation of great toe History of tobacco use HTN (hypertension) Hyperlipidemia Hypertriglyceridemia Hypomagnesemia Hyponatremia Infection of left great toe due to methicillin resistant Staphylococcus aureus (MRSA) Insomnia Insulin dependent diabetes mellitus Iron deficiency anemia Nonobstructive atherosclerosis of coronary artery Numbness of lower extremity Opiate abuse, continuous Opiate dependence Opioid dependence Osteomyelitis of great toe of left foot Peripheral neuropathy Restless leg syndrome Right second toe ulcer Seizures Sepsis Shortness of breath Surgical History History of esophagogastroduodenoscopy (EGD) History of lumbar surgery History of right below knee amputation (12/22/21) Right Below Knee Amputation(Right) - Davon Good MD, FACS Family History Mother , age 63 Myocardial infarction Father , age 68 or 69 Myocardial infarction Brother S/P CABG (coronary artery bypass graft) Sister Myocardial infarction x 3; she is 57yo Social History Smoking Status: Former smoker Tobacco Type: Cigarettes packs per day: 0.5; Cigarettes Per Day: 20; Second Hand Exposure: No; Do You Dip or Chew Tobacco: No; Hx Alcohol Use: No Hx Substance Use: Yes Prescribed Medications: Marijuana Last Used Substance: Days (ago) Last Used Substance Other:: Medical marijuana Substance Use Type Other:: medical marijuana Preferred Language: Sami Communication Ability: Effective Visual Impairment: No Limitations Hearing Ability: Normal Mammography Technologist Required: No Beliefs That Will Affect Care: None marital status: Current Living Situation: Spouse current occupational status: unemployed 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 other: raising a grandchild as well; lives in [place] Feels Safe at Home: Yes Diet: diabetic and low salt during the past year weight has: remained stable Assistive Devices: Walker and Wheelchair Allergies Allergies Allergy/AdvReac Type Severity Reaction Status Date / Time morphine Allergy Severe blisters Verified 05/18/23 11:52 in mouth Sulfa (Sulfonamide Allergy Severe rash/swelli Verified 05/18/23 11:52 Antibiotics) ng amoxicillin [From Augmentin] Allergy Intermediate itching/power Verified 05/18/23 11:52 h ceftriaxone [From Rocephin] Allergy Intermediate Hives Verified 05/18/23 11:52 clavulanic acid Allergy Intermediate itching/power Verified 05/18/23 11:52 [From Augmentin] h erythromycin base Allergy Intermediate Hives Verified 05/18/23 11:52 iron [From Venofer] Allergy Intermediate Hypertensio Verified 05/18/23 11:52 n vancomycin Allergy Intermediate YULIYA Verified 05/18/23 11:52 SYNDROME---CAN TAKE IF VERY SLOW DRIP. adhesive AdvReac Intermediate DERMABOND Verified 05/18/23 11:52 excoriates skin Home Meds Home Medications Medication Instructions Recorded Confirmed ropinirole 2 mg tablet 4 mg PO HS 10/19/20 06/13/23 insulin lispro 100 unit/mL 5 unit subcut TIDM 03/08/22 06/13/23 subcutaneous pen zolpidem 10 mg tablet 10 mg PO HS PRN Sleep 03/08/22 06/13/23 insulin glargine 100 unit/mL (3 10 unit subcut HS 10/17/22 06/13/23 mL) subcutaneous pen (Lantus Solostar U-100 Insulin) albuterol sulfate 90 mcg/actuation 2 puff inhalation Q6 PRN Shortness 05/08/23 06/13/23 aerosol inhaler Of Breath Or Wheezing alprazolam 1 mg tablet 1 mg PO TID PRN Anxiety 05/08/23 06/13/23 docusate sodium 100 mg capsule 100 mg PO BID 05/08/23 06/13/23 lisinopril 10 mg tablet 10 mg PO DAILY 05/08/23 06/13/23 metoprolol succinate 50 mg 50 mg PO QAM 05/08/23 06/13/23 tablet,extended release 24 hr (Toprol XL) ondansetron HCl 4 mg tablet 4 mg PO HS PRN Nausea 05/08/23 06/13/23 pantoprazole 40 mg tablet,delayed 40 mg PO BID 05/08/23 06/13/23 release prazosin 1 mg capsule 1 mg PO TID 05/08/23 06/13/23 baclofen 20 mg tablet 20 mg PO TID 06/13/23 06/13/23 oxycodone-acetaminophen 7.5 mg-325 2 tab PO Q4 PRN Pain,severe 06/13/23 06/13/23 mg tablet prochlorperazine maleate 5 mg 5 mg PO Q8 PRN Nausea 06/13/23 06/13/23 tablet Previous Rx's Medication Instructions Recorded clopidogrel 75 mg tablet (Plavix) 75 mg PO DAILY #30 tabs 05/10/23 amitriptyline 50 mg tablet 50 mg PO HS 30 days #30 tabs 05/27/23 divalproex 500 mg tablet,extended 500 mg PO BID 30 days #60 tabs 05/27/23 release 24 hr Results & Data (ED) Vital Signs Vital Signs - 24 hr 06/13/23 17:55 06/13/23 18:06 06/13/23 18:06 Temperature 36.8 C 36.8 C Temperature Source Oral Oral Pulse Rate 86 85 Pulse Rate [Apical] 85 Pulse Rhythm Regular Pulse Strength Normal Respiratory Rate 18 18 Respiratory Effort / Characteristics Non-Labored Spontaneous Non-Labored Spontaneous Respiratory Depth Normal Normal Blood Pressure 99/67 L Blood Pressure [Right Arm] 99/67 L Blood Pressure Mean 77 Blood Pressure Mean [Right Arm] 77 Blood Pressure Position Sitting Blood Pressure Position [Right Arm] Sitting Pulse Oximetry 97 97 Oxygen Delivery Method Room Air Room Air Sepsis Recent Fever Within 48 Hours No Sepsis New/Unexplained Change in Mental Status N/A Sepsis Action Taken by Nursing No Action Required 06/13/23 20:00 06/13/23 22:06 06/13/23 23:01 Temperature Temperature Source Pulse Rate 81 Pulse Rate [Apical] 80 74 Pulse Rhythm Pulse Strength Respiratory Rate 22 20 Respiratory Effort / Characteristics Non-Labored Spontaneous Respiratory Depth Normal Blood Pressure Blood Pressure [Right Arm] 109/66 160/87 H Blood Pressure Mean Blood Pressure Mean [Right Arm] 80 111 Blood Pressure Position Blood Pressure Position [Right Arm] Semi-fowlers Semi-fowlers Pulse Oximetry 95 97 Oxygen Delivery Method Room Air Room Air Sepsis Recent Fever Within 48 Hours Sepsis New/Unexplained Change in Mental Status Sepsis Action Taken by Nursing Laboratory Data 06/13/23 19:23 06/13/23 19:23 Lab Results 06/13/23 06/13/23 06/13/23 Range/Units 19:23 19: 19: WBC 13.65 H (4.8-10.8) K/ul RBC 4.82 (4.20-5.40) M/uL Hgb 14.0 (12.0-16.0) g/dl Hct 41.8 (37.0-47.0) % MCV 86.7 (80.0-100.0) fL MCH 29.0 (25.0-34.0) pg MCHC 33.5 (32.0-36.0) g/dL RDW Std Deviation 43.9 (36.4-46.3) fL RDW Coeff of [place] 13.9 (11.5-14.5) % Plt Count 338 (130-400) K/uL MPV 10.3 (9.4-12.4) fL Immature Gran % (Auto) 0.2 % Neut % (Auto) 62.2 % Lymph % (Auto) 26.1 % [place] % (Auto) 7.1 % Eos % (Auto) 3.7 % Baso % (Auto) 0.7 % Neut # (Auto) 8.49 H (1.40-6.50) K/uL Lymph # (Auto) 3.56 H (1.20-3.40) K/uL [place] # (Auto) 0.97 H (0.11-0.59) K/uL Eos # (Auto) 0.50 (0.00-0.50) K/uL Baso # (Auto) 0.10 (0.00-0.20) K/uL Immature Gran # (Auto) 0.03 (0.01-0.20) K/uL Sodium 137 (136-145) mmol/L Potassium 4.7 (3.5-5.1) mmol/L Chloride 102 (98-107) mmol/L Carbon Dioxide 26 (21-32) mmol/L Anion Gap 9 (3-11) BUN 16 (6-23) mg/dl Creatinine 0.56 L (0.6-1.2) mg/dl Est Cr Clr Drug Dosing 94.0 ml/min Est GFR ( Amer) 118.3 ml/min Est GFR (Non-Af Amer) 102.1 ml/min BUN/Creatinine Ratio 28.6 H (10-20) Glucose 177 H (70-99(Fasting)) mg/dl Lactate 2.0 (0.4-2.0) mmol/L Calcium 10.1 (8.6-10.3) mg/dl Administered Medications Gabapentin (Gabapentin 300 Mg Cap) 300 mg PO BID RICKY Stop: 07/13/23 21:29 Last Admin: 06/13/23 21:43 Dose: Not Given Documented By: AB Discontinued Medications Hydromorphone HCl (Hydromorphone Inj 0.5 Mg/0.5 Ml Syr) 0.5 mg IV NOW STA Stop: 06/13/23 18:31 Last Admin: 06/13/23 19:07 Dose: 0.5 mg Documented By: JULIAN Hydromorphone HCl (Hydromorphone Inj 0.5 Mg/0.5 Ml Syr) 0.5 mg IV NOW STA Stop: 06/13/23 22:29 Last Admin: 06/13/23 22:33 Dose: 0.5 mg Documented By: AB Ondansetron HCl (Ondansetron Inj 2 Mg/Ml 2 Ml Vial) 4 mg IV NOW STA Stop: 06/13/23 21:10 Last Admin: 06/13/23 21:12 Dose: 4 mg Documented By: Discharge Plan Visit Data Chief Complaint: Back Injury/Pain Stated Complaint: BACK AND RIB PAIN ?SHINGLES, RECENT SEPSIS ED Provider: Dali Cohen Discharge Problem: Acute herpes zoster neuropathy, Diabetic foot ulcer Patient Disposition: Admitted As Inpatient Discharge Instructions Interventions: ED Discharge Assessment Last Done: 06/13/23 23:33
[2023-06-13] MEDS ORDERED: HYDROmorphone INJ 0.5 MG/0.5 ML SYR IV STA ×2 (18:30→22:28)
[2023-06-13 19:58] LABS: Basophils % (auto) 0.7 %; Eosinophils % (auto) 3.7 %; Hematocrit (blood only) 41.8 % (37.0-47.0); Immature Granulocytes # (auto) 0.03 K/uL (0.01-0.20); Immature Granulocytes % (auto) 0.2 %; Lymphocytes # (auto) 3.56 K/uL (1.20-3.40); Lymphocytes % (auto) 26.1 %; Mean Corpuscular Hgb Conc 33.5 g/dL (32.0-36.0); Mean Corpuscular Volume 86.7 fL (80.0-100.0); Mean Platelet Volume 10.3 fL (9.4-12.4); Monocytes # (auto) 0.97 K/uL (0.11-0.59); Monocytes % (auto) 7.1 %; Neutrophils # (auto) 8.49 K/uL (1.40-6.50); Neutrophils % (auto) 62.2 %; Platelet Count 338 K/uL (130-400); RDW Coefficient of Variation 13.9 % (11.5-14.5); RDW Standard Deviation 43.9 fL (36.4-46.3); Red Blood Count 4.82 M/uL (4.20-5.40); White Blood Count 13.65 K/ul (4.8-10.8)
[2023-06-13 20:06] LABS: Anion Gap 9 (3-11); BUN Creatinine Ratio 28.6 (10-20); Blood Urea Nitrogen 16 mg/dl (6-23); Calcium 10.1 mg/dl (8.6-10.3); Carbon Dioxide 26 mmol/L (21-32); Chloride 102 mmol/L (98-107); Est GFR (African American) 118.3 ml/min; Est GFR (Non-African American) 102.1 ml/min; Glucose 177 mg/dl (70-99(Fasting)); Potassium 4.7 mmol/L (3.5-5.1); Sodium 137 mmol/L (136-145)
[2023-06-13] MEDS ORDERED: ONDANSETRON INJ 2 MG/ML 2 ML VIAL IV STA (21:09)
[2023-06-13] MEDS: GABAPENTIN 300 MG CAP PO SCH (21:43)
--- NOTE | 2023-06-13 23:06 | History & Physical Report ---
Date of Service June 13, 2023 Assessment & Plan (1) Acute herpes zoster neuropathy: Plan: Herpetic rash noted right T8 dermatome with burning pain concerning for herpes zoster. -Valcyte 1000mg po TID -Pain control with Tylenol, Baclofen, Dilaudid -Maintain isolation precautions (2) Foot pain: Plan: Patient s/p amputation of left 2nd toe on 06/06/23. She notes increased pain, redness and drainage over the last two days. Elevated WBC count. Afebrile on presentation but patient reports subjective fevers and chills X-ray does not appear to show osteo - may be better viewed on MRI if ongoing concern -Check ESR/CRP -Continue wound care BID -Podiatry consultation appreciated -Patient is to have sutures removed -Pain control (3) HTN (hypertension): Plan: Chronic. Hypertensive in the ER -Management of acute on chronic pain as well as anxiety -Continue Metoprolol 50mg po qAM -Continue Lisinopril 10mg po daily (4) Diabetes mellitus type 2, uncontrolled: Plan: Last [id number] on 05/09/23 -Lantus 5u BID -ISS -Goal blood sugar 110 - 140 (5) Chronic pain syndrome: Plan: Chronic -Continue Elavil, Baclofen, Tylenol, Divalproex, Gabapentin -Dilaudid PRN History of Present Illness Chief Complaint: pain Primary Care Provider: DO Mariana Henao Inch is a 58yo female with complex medical history to include DM, CAD, Chronic pain, PVD s/p right BKA, amputation of left 1st and 2nd toes presenting with diffuse pain at amputation site as well as right flank. Patient was recently admitted to [facility] from 05/18/23 - 05/28/23 after presenting with right groin pain and left 2nd toe pain as well as nausea and PO intoler ance. Patient had an MRI performed on 05/22/23 which revealed osteomyelitis. She had an amputation of the left 2nd toe performed by Dr. Noriega on 05/24/23. She was treated with Daptomycin. Patient was ultimately discharged home in stable condition. Medication on discharge include Amitriptyline 50mg po qHS, Baclofen 20mg po BID and Divalproex 500mg po BID. Patient returns to the ER with multiple complaints. Two days ago she noted an area of redness at the amputation site of the left 2nd toe. Also with yellow drainage. The area started bleeding today. She has significant pain at the amputation site as well as pain in the anterior leg. Patient also reports several days of localized burning pain in the right T8 dermatome with eruption of a blistering rash today. Also with persistent nausea with daily non-bloody/non-bilious vomiting and PO intolerance. Patient reports feeling weak and tired, unable to ambulate due to generalized weakness and pain. In the ER she is afebrile, hypertensive otherwise HD stable Allergies Allergy/AdvReac Type Severity Reaction Status Date / Time morphine Allergy Severe blisters Verified 05/18/23 11:52 in mouth Sulfa (Sulfonamide Allergy Severe rash/swelli Verified 05/18/23 11:52 Antibiotics) ng amoxicillin [From Augmentin] Allergy Intermediate itching/power Verified 05/18/23 11:52 h ceftriaxone [From Rocephin] Allergy Intermediate Hives Verified 05/18/23 11:52 clavulanic acid Allergy Intermediate itching/power Verified 05/18/23 11:52 [From Augmentin] h erythromycin base Allergy Intermediate Hives Verified 05/18/23 11:52 iron [From Venofer] Allergy Intermediate Hypertensio Verified 05/18/23 11:52 n vancomycin Allergy Intermediate YULIYA Verified 05/18/23 11:52 SYNDROME---CAN TAKE IF VERY SLOW DRIP. adhesive AdvReac Intermediate DERMABOND Verified 05/18/23 11:52 excoriates skin Home Medications Medication Instructions Recorded Confirmed Type ropinirole 2 mg tablet 4 mg PO HS 10/19/20 06/13/23 History insulin lispro 100 unit/mL 5 unit subcut TIDM 03/08/22 06/13/23 History subcutaneous pen zolpidem 10 mg tablet 10 mg PO HS PRN Sleep 03/08/22 06/13/23 History insulin glargine 100 unit/mL (3 10 unit subcut HS 10/17/22 06/13/23 History mL) subcutaneous pen (Lantus Solostar U-100 Insulin) albuterol sulfate 90 mcg/actuation 2 puff inhalation Q6 PRN Shortness 05/08/23 06/13/23 History aerosol inhaler Of Breath Or Wheezing alprazolam 1 mg tablet 1 mg PO TID PRN Anxiety 05/08/23 06/13/23 History docusate sodium 100 mg capsule 100 mg PO BID 05/08/23 06/13/23 History lisinopril 10 mg tablet 10 mg PO DAILY 05/08/23 06/13/23 History metoprolol succinate 50 mg 50 mg PO QAM 05/08/23 06/13/23 History tablet,extended release 24 hr (Toprol XL) ondansetron HCl 4 mg tablet 4 mg PO HS PRN Nausea 05/08/23 06/13/23 History pantoprazole 40 mg tablet,delayed 40 mg PO BID 05/08/23 06/13/23 History release prazosin 1 mg capsule 1 mg PO TID 05/08/23 06/13/23 History clopidogrel 75 mg tablet (Plavix) 75 mg PO DAILY #30 tabs 05/10/23 06/13/23 Rx amitriptyline 50 mg tablet 50 mg PO HS 30 days #30 tabs 05/27/23 06/13/23 Rx divalproex 500 mg tablet,extended 500 mg PO BID 30 days #60 tabs 05/27/23 06/13/23 Rx release 24 hr baclofen 20 mg tablet 20 mg PO TID 06/13/23 06/13/23 History oxycodone-acetaminophen 7.5 mg-325 2 tab PO Q4 PRN Pain,severe 06/13/23 06/13/23 History mg tablet prochlorperazine maleate 5 mg 5 mg PO Q8 PRN Nausea 06/13/23 06/13/23 History tablet Past Med/Surg History Medical History Abdominal pain Acidosis, lactic Acute dehydration 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 No issues per anesthesia postop progress note. Anemia Benzodiazepine dependence Benzodiazepine withdrawal CAD (coronary artery disease) Cellulitis Chronic back pain Chronic pain syndrome Costochondritis COVID-19 Depression Diabetes mellitus type 2, uncontrolled Diabetic neuropathy Diabetic peripheral neuropathy Diastolic CHF DM2 (diabetes mellitus, type 2) IDDM, A1c 07/2021-11% Esophagitis determined by endoscopy Gastritis Gastroenteritis Gastroparesis GIB (gastrointestinal bleeding) History of amputation of great toe History of tobacco use HTN (hypertension) Hyperlipidemia Hypertriglyceridemia Hypomagnesemia Hyponatremia Infection of left great toe due to methicillin resistant Staphylococcus aureus (MRSA) Insomnia Insulin dependent diabetes mellitus Iron deficiency anemia Nonobstructive atherosclerosis of coronary artery Numbness of lower extremity Opiate abuse, continuous Opiate dependence Opioid dependence Osteomyelitis of great toe of left foot Peripheral neuropathy Restless leg syndrome Right second toe ulcer Seizures Sepsis Shortness of breath Surgical History History of esophagogastroduodenoscopy (EGD) History of lumbar surgery History of right below knee amputation (12/22/21) Right Below Knee Amputation(Right) - Davon Good MD, FACS Family History Mother , age 63 Myocardial infarction Father , age 68 or 69 Myocardial infarction Brother S/P CABG (coronary artery bypass graft) Sister Myocardial infarction x 3; she is 57yo Social History Smoking Status: Former smoker Tobacco Type: Cigarettes packs per day: 0.5; Cigarettes Per Day: 20; Second Hand Exposure: No; Do You Dip or Chew Tobacco: No; Hx Alcohol Use: No Hx Substance Use: Yes Prescribed Medications: Marijuana Last Used Substance: Days (ago) Last Used Substance Other:: Medical marijuana Substance Use Type Other:: medical marijuana Preferred Language: Luxembourgish Communication Ability: Effective Visual Impairment: No Limitations Hearing Ability: Normal House Painter Required: No Beliefs That Will Affect Care: None marital status: Current Living Situation: Spouse current occupational status: unemployed 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 other: raising a grandchild as well; lives in [place] Feels Safe at Home: Yes Diet: diabetic and low salt during the past year weight has: remained stable Assistive Devices: Walker and Wheelchair Review of Systems Review of Systems: All systems reviewed & are unremarkable except as noted in HPI & below Physical Exam Physical Exam: General: patient tearful, NAD, AA&O x 4 Skin: erythematous blistering rash right T8 dermatome, tenderness to palpation HEENT: NC/AT, PERRL, EOMI, anicteric sclera, conjunctiva without injection, external ear normal to inspection and nontender, nares patent, moist mucus membranes, dentition intact, no oropharyngeal lesions, neck supple, trachea midline, no LAD, no thyromegaly, no JVD Heart: +S1/S2, regular, no m/r/g Lungs: equal air entry bilaterally, no rales/rhonchi/wheezes Abd: +BS, soft, NT/ND, no masses/organomegaly/ascites Ext: s/p right BKA, s/p amputation of left 1st and 2nd toes. Sutures in place with small area of erythema with serous discharge Neuro: nonfocal, patient AA&O x 4, speech intact, no facial droop, moving all extremities on command with equal strength 5/5 Results & Data Results & Data Vital Signs (Past 12 Hours) Vital Signs Temp Pulse Pulse Resp BP BP Pulse Ox 06/13/23 23:01 74 20 160/87 H 97 06/13/23 22:06 81 06/13/23 20:00 80 22 109/66 95 06/13/23 18:06 36.8 C 85 18 99/67 L 97 06/13/23 18:06 36.8 C 85 18 99/67 L 97 06/13/23 17:55 86 O2 Del Method 06/13/23 23:01 Room Air 06/13/23 22:06 06/13/23 20:00 Room Air 06/13/23 18:06 Room Air 06/13/23 18:06 Room Air 06/13/23 17:55 Laboratory Results Laboratory Results WBC 13.65 K/ul (4.8-10.8) H 06/13/23 19: RBC 4.82 M/uL (4.20-5.40) 06/13/23 19: Hgb 14.0 g/dl (12.0-16.0) 06/13/23: Hct 41.8 % (37.0-47.0) 06/13/23: MCV 86.7 fL (80.0-100.0) 06/13/23 19: MCH 29.0 pg (25.0-34.0) 06/13/23: MCHC 33.5 g/dL (32.0-36.0) 06/13/23: RDW Std Deviation 43.9 fL (36.4-46.3) 06/13/23: RDW Coeff of [place] 13.9 % (11.5-14.5) 06/13/23: Plt Count 338 K/uL (130-400) 06/13/23: MPV 10.3 fL (9.4-12.4) 06/13/23: Immature Gran % (Auto) 0.2 % 06/13/23: Neut % (Auto) 62.2 % 06/13/23: Lymph % (Auto) 26.1 % 06/13/23: [place] % (Auto) 7.1 % 06/13/23: Eos % (Auto) 3.7 % 06/13/23: Baso % (Auto) 0.7 % 06/13/23: Neut # (Auto) 8.49 K/uL (1.40-6.50) H 06/13/23: Lymph # (Auto) 3.56 K/uL (1.20-3.40) H 06/13/23: [place] # (Auto) 0.97 K/uL (0.11-0.59) H 06/13/23: Eos # (Auto) 0.50 K/uL (0.00-0.50) 06/13/23: Baso # (Auto) 0.10 K/uL (0.00-0.20) 06/13/23: Immature Gran # (Auto) 0.03 K/uL (0.01-0.20) 06/13/23 19: Sodium 137 mmol/L (136-145) 06/13/23 19: Potassium 4.7 mmol/L (3.5-5.1) 06/13/23: Chloride 102 mmol/L (98-107) 06/13/23: Carbon Dioxide 26 mmol/L (21-32) 06/13/23 19: Anion Gap 9 (3-11) 06/13/23 19: BUN 16 mg/dl (6-23) 06/13/23: Creatinine 0.56 mg/dl (0.6-1.2) L 06/13/23 19:23 Est Cr Clr Drug Dosing 94.0 ml/min 06/13/23 19:23 Est GFR ( Amer) 118.3 ml/min 06/13/23 19:23 Est GFR (Non-Af Amer) 102.1 ml/min 06/13/23 19:23 BUN/Creatinine Ratio 28.6 (10-20) H 06/13/23 19:23 Glucose 177 mg/dl (70-99(Fasting)) H 06/13/23 19:23 Lactate 2.0 mmol/L (0.4-2.0) 06/13/23 19: Calcium 10.1 mg/dl (8.6-10.3) 06/13/23 19:23 C-Reactive Protein < 0.50 mg/dl (0-0.5) 06/13/23 19:23 PG Care Time/CCT Total # of Minutes Spent Total Time Spent with Patient: Total time spent is greater than 50% in coordination of care (as documented) at patient's floor/unit and/or counseling patient: Coding Level of Care Code 67416 INT INP/OBS CARE 3/75MIN Diagnoses Acute herpes zoster neuropathy B02.23 Foot pain M79.673 HTN (hypertension) I10 Diabetes mellitus type 2, uncontrolled E11.65 Chronic pain syndrome G89.4
[2023-06-13] MEDS ORDERED: GLUCOSE 40% GEL 15 GM TUBE PO PRN (23:44)
[2023-06-13] MEDS ORDERED: CARBOHYDRATES FOR HYPOGLYCEMIA PO PRN (23:44)
[2023-06-13] MEDS ORDERED: GLUCOSE 10 TAB/TUBE PO PRN (23:44)
[2023-06-13] MEDS ORDERED: ALBUTEROL HFA 8 GM INHALER INH PRN (23:44)
[2023-06-13] MEDS ORDERED: ACETAMINOPHEN 325 MG TAB PO PRN (23:44)
[2023-06-13] MEDS ORDERED: GLUCAGON FOR INJ 1 MG VIAL SQ PRN (23:44)
[2023-06-13] MEDS ORDERED: POLYETHYLENE (MIRALAX) 17 GM PACK PO PRN (23:44)
[2023-06-13] MEDS ORDERED: HYDROmorphone INJ 0.5 MG/0.5 ML SYR IV PRN (23:44)
[2023-06-13] MEDS ORDERED: DEXTROSE 50% 50 ML SYRINGE IV PRN (23:44)
[2023-06-14 00:03] LABS: C Reactive Protein < 0.50 mg/dl (0-0.5)
[2023-06-14] MEDS: PROCHLORPERAZINE MALEATE 5 MG TAB PO PRN ×3 (00:21→20:41)
[2023-06-14] MEDS: DAPTOmycin 200 MG in SYRINGE 0 ML IV SCH ×2 (00:21→23:57)
[2023-06-14] MEDS: HYDROmorphone INJ 0.5 MG/0.5 ML SYR IV PRN ×3 (00:22→06:34)
[2023-06-14] MEDS: ZOLPIDEM TARTRATE 10 MG TAB PO PRN ×2 (00:33→20:40)
--- NOTE | 2023-06-14 07:25 | XRay Report ---
LEFT FOOT 2 VIEWS CLINICAL HISTORY: Foot infection. History of osteomyelitis. FINDINGS: AP and lateral views of the left foot are compared to study dated 05/08/2023 and correlated with MRI of left foot dated 05/22/2023. The skeletal structures are osteopenic. Again seen is amputat ion change of the first toe through the distal shaft of the first metatarsal. There has been interval amputation of the second toe through the metatarsophalangeal joint. No acute fracture is seen. No attila ny erosion or periostitis is identified. Mild osteoarthritic change is seen throughout the midfoot. S oft tissue edema and subcutaneous gas is seen distal to the resection sites. Some of this may be rela kerry to recent surgery. Clinical correlation will be required. No radiodense foreign body is identifie d. IMPRESSION: Postsurgical change as above with no acute bony abnormality identified. Electronically signed by: Finn Bradshaw M.D. 06/14/2023 7:24 AM
--- NOTE | 2023-06-14 07:29 | Hospitalist Progress Note ---
Date of Service June 14, 2023 Assessment & Plan (1) Acute herpes zoster neuropathy: (2) HTN (hypertension): (3) Diabetes mellitus type 2, uncontrolled: (4) Chronic pain syndrome: Plan Pt is a 58yo female with complex medical history of uncontrolled DM, CAD, Chronic pain, PVD s/p right BKA, with recent amputation of left 1st and 2nd toes presenting for diffuse pain and drainage at amputation site and shingles. #Active shingles infection - Herpetic rash noted right T8 dermatome with burning pain concerning for herpes zoster. - continue Valcyte 1000mg po TID - continue pain control with Tylenol, Baclofen, Dilaudid, increased dilaudid to 1 mg q4h for today - tomorrow, will decrease dilaudid and increase gabapentin for neuropathic pain of shingles #Foot pain, s/p recent amputation of left 1st and 2nd toes - WBC count elevated on admission, x-ray does not show osteo, considering MRI after podiatry sees her - awaiting ESR/CRP - continue wound care BID - podiatry consultation appreciated - patient is to have sutures removed #HTN, chronic -Continue Metoprolol 50mg po qAM -Continue Lisinopril 10mg po daily #Diabetes mellitus type 2, uncontrolled - Last [id number]=5.9 on 05/09/23 - continue Lantus 5u BID and ISS -Goal blood sugar 110 - 140 #Chronic pain syndrome -Continue Elavil, Baclofen, Tylenol, Divalproex, Gabapentin -Dilaudid PRN DVT PPx: Lovenox 40 SQ QAM Admission and Anticipated Discharge Date Admission Date: June 13, 2023 Supervising Physician Co-Signing Physician Notes Attending attestation Pt seen and examined in concert with Dr. Agee. In agreement with the documented findings as noted in the resident documentation with any exceptions or additions as noted here. Complaining of right flank pain at site of vesciulopapular rash c/w VZV as well as mild pruritis of the contralateral chest without rash. On examination, S1/S2 nl RRR no MCG. CTAB. Abd NT/ND BS+ve 4x6cm area of VZV rash with surrounding erythema VZV infection - contact precautions - continue valacyclovir, gabapentin. Escalated dilaudid dose to 1mg for adequate pain control. Recommend rapid taper as gabapentin takes effect. Pruritis - diffuse pruritis improved with diphenhydramine - monitor closely for drug rxn Foot pain, right, s/p amputation of 1st and 2nd toes - podiatry consult Else see resident documentation as noted. Subjective Pt is a 58yo female with complex medical history of uncontrolled DM, CAD, Chronic pain, PVD s/p right BKA, with recent amputation of left 1st and 2nd toes presenting for diffuse pain and drainage at amputation site and shingles. Today, pt was seen this morning sitting up in bed and crying due to pain. She states that the rash along her back and lateral chest wall has become extremely painful to the point that the 0.5 mg Dilaudid is no longer helping her pain, and is requesting more pain medication for some relief. She states she noticed after the recent 1st and 2nd digit toe amputations on the L foot that she noticed the area was bleeding and draining watery fluid from the site and so she was concerned it may be infected. Overall, her larger issue today according to her is the shingles pain. Review of Systems Review of Systems: Constitutional: denies fever, chills, Cardio: denies chest pain, Resp: denies shortness of breath, Physical Exam Physical Exam: General:Alert and oriented, no acute distress, but uncomfortable and tearful Cardio: Regular rate and rhythm, Resp:Lungs clear to auscultation b/l, Skin: Warm, pink, dry, cluster of blisters noted under R breast and on R posterior chest wall, scratch pickering noted on posterior cluster Extremities: L foot 1st and 2nd digits s/p recent amputation with sutures in place, oozing some blood and serous fluid, R leg s/p BKA Psych: Mood-affect congruence. Results & Data Results & Data Vital Signs (Past 12 Hours) Vital Signs Temp Pulse Pulse Pulse Resp BP Pulse Ox 06/13/23 23:50 06/13/23 23:50 06/13/23 23:50 36.7 C 78 16 163/89 H 95 06/13/23 23:33 06/13/23 23:01 74 20 160/87 H 97 06/13/23 22:06 81 06/13/23 20:00 80 22 109/66 95 O2 Del Method 06/13/23 23:50 Room Air 06/13/23 23:50 Room Air 06/13/23 23:50 Room Air 06/13/23 23:33 Room Air 06/13/23 23:01 Room Air 06/13/23 22:06 06/13/23 20:00 Room Air Resident Activity Tracking Resident Involvement: Resident Care Provided Care Provided: Adult Hospital Medicine
[2023-06-14] MEDS: CLOPIDOGREL BISULFATE 75 MG TAB PO SCH (07:54)
[2023-06-14] MEDS: DIVALPROEX EXTENDED RELEASE 500 MG TAB PO SCH ×2 (07:54→20:38)
[2023-06-14] MEDS: BACLOFEN 20 MG TAB PO SCH ×3 (07:54→20:38)
[2023-06-14] MEDS: valACYclovir HCL 500 MG TABLET PO SCH ×3 (07:55→20:39)
[2023-06-14] MEDS: DOCUSATE SODIUM 100 MG CAP PO SCH ×2 (07:55→19:41)
[2023-06-14] MEDS: PANTOprazole 40 MG TAB PO SCH ×2 (07:56→20:38)
[2023-06-14] MEDS: PRAZOSIN HCL 1 MG CAP PO SCH ×3 (07:56→20:39)
[2023-06-14] MEDS: GABAPENTIN 300 MG CAP PO SCH ×2 (07:57→20:38)
[2023-06-14] MEDS: lisinopril 10 MG TAB PO SCH (07:57)
[2023-06-14] MEDS: METOPROLOL SUCC 50MG EXT REL TAB PO SCH (07:57)
[2023-06-14] MEDS: ALPRAZolam 0.5 MG TABLET PO PRN ×2 (07:58→20:39)
[2023-06-14] MEDS: INSULIN ASPART PER UNIT CHARGE SC SCH ×4 (08:13→21:52)
[2023-06-14] MEDS: LANTUS PER UNIT CHARGE SQ SCH ×2 (08:13→21:51)
[2023-06-14] MEDS: NICOTINE 14 MG/24 HR PATCH TD SCH (08:14)
[2023-06-14 08:49] LABS: Hematocrit (blood only) 42.5 % (37.0-47.0); Hemoglobin 13.9 g/dl (12.0-16.0); Mean Corpuscular Hemoglobin 28.7 pg (25.0-34.0); Mean Corpuscular Hgb Conc 32.7 g/dL (32.0-36.0); Mean Corpuscular Volume 87.6 fL (80.0-100.0); Mean Platelet Volume 9.7 fL (9.4-12.4); Platelet Count 305 K/uL (130-400); RDW Coefficient of Variation 13.8 % (11.5-14.5); RDW Standard Deviation 44.4 fL (36.4-46.3); Red Blood Count 4.85 M/uL (4.20-5.40); White Blood Count 12.37 K/ul (4.8-10.8)
[2023-06-14 09:04] LABS: Est GFR (African American) 121.2 ml/min; Est GFR (Non-African American) 104.6 ml/min; Potassium 4.5 mmol/L (3.5-5.1)
[2023-06-14 09:05] LABS: BUN Creatinine Ratio 32.7 (10-20); Calcium 9.8 mg/dl (8.6-10.3); Creatinine Clr Calc Pharmacy 101.5 ml/min
[2023-06-14] MEDS: HYDROmorphone INJ 1 MG/ML SYRINGE IV PRN ×4 (09:34→21:56)
[2023-06-14] MEDS: ENOXAPARIN INJ 40 MG/0.4 ML SYR SQ SCH (11:07)
[2023-06-14] MEDS ORDERED: diphenhydrAMINE Capsule 25 MG CAP PO ONE (12:03)
[2023-06-14] MEDS: AMITRIPTYLINE HCL 50 MG TAB PO SCH (20:38)
[2023-06-14] MEDS: rOPINIRole HCL 2 MG TABLET PO SCH (20:39)
--- NOTE | 2023-06-14 22:44 | Orthopedic Consultation ---
Date of Consultation June 14, 2023 Assessment & Plan (1) Foot pain: Patient seen and examined at bedside W360-1. Reviewed elevated white count and complaint of left foot pain. X-rays taken and reviewed show no acute findings, No gas, No OM. Sutures removed at bedside. Skin appears well co-apted and well healed. There is a small partial thickness wound at distal margin of incision site. Clean, dry, dressing applied. Wound appears stable. No immediate intervention planed. Will continue to follow while Patient remans in house. Thank you for allowing me to participate in the care of this Patient. (2) Diabetic foot ulcer: History of Present Illness Attending Physician: Harvinder Purvis MD History of Present Illness Patient is a 58 year old female seen and examined at bedside room W360-1. Patient has a past medical history significant for type II diabetes, CAD, Chronic pain, PVD s/p right BKA, amputation of left 1st and 2nd toes. Patient is well known to me from previous admittance. Today she is examined for diffuse pain at amputation site. She had an amputation of the left 2nd toe on 05/24/23. Allergies Allergy/AdvReac Type Severity Reaction Status Date / Time morphine Allergy Severe blisters Verified 05/18/23 11:52 in mouth Sulfa (Sulfonamide Allergy Severe rash/swelli Verified 05/18/23 11:52 Antibiotics) ng amoxicillin [From Augmentin] Allergy Intermediate itching/power Verified 05/18/23 11:52 h ceftriaxone [From Rocephin] Allergy Intermediate Hives Verified 05/18/23 11:52 clavulanic acid Allergy Intermediate itching/power Verified 05/18/23 11:52 [From Augmentin] h erythromycin base Allergy Intermediate Hives Verified 05/18/23 11:52 iron [From Venofer] Allergy Intermediate Hypertensio Verified 05/18/23 11:52 n vancomycin Allergy Intermediate YULIYA Verified 05/18/23 11:52 SYNDROME---CAN TAKE IF VERY SLOW DRIP. adhesive AdvReac Intermediate DERMABOND Verified 05/18/23 11:52 excoriates skin Home Medications Medication Instructions Recorded Confirmed Type ropinirole 2 mg tablet 4 mg PO HS 10/19/20 06/13/23 History insulin lispro 100 unit/mL 5 unit subcut TIDM 03/08/22 06/13/23 History subcutaneous pen zolpidem 10 mg tablet 10 mg PO HS PRN Sleep 03/08/22 06/13/23 History insulin glargine 100 unit/mL (3 10 unit subcut HS 10/17/22 06/13/23 History mL) subcutaneous pen (Lantus Solostar U-100 Insulin) albuterol sulfate 90 mcg/actuation 2 puff inhalation Q6 PRN Shortness 05/08/23 06/13/23 History aerosol inhaler Of Breath Or Wheezing alprazolam 1 mg tablet 1 mg PO TID PRN Anxiety 05/08/23 06/13/23 History docusate sodium 100 mg capsule 100 mg PO BID 05/08/23 06/13/23 History lisinopril 10 mg tablet 10 mg PO DAILY 05/08/23 06/13/23 History metoprolol succinate 50 mg 50 mg PO QAM 05/08/23 06/13/23 History tablet,extended release 24 hr (Toprol XL) ondansetron HCl 4 mg tablet 4 mg PO HS PRN Nausea 05/08/23 06/13/23 History pantoprazole 40 mg tablet,delayed 40 mg PO BID 05/08/23 06/13/23 History release prazosin 1 mg capsule 1 mg PO TID 05/08/23 06/13/23 History clopidogrel 75 mg tablet (Plavix) 75 mg PO DAILY #30 tabs 05/10/23 06/13/23 Rx amitriptyline 50 mg tablet 50 mg PO HS 30 days #30 tabs 05/27/23 06/13/23 Rx divalproex 500 mg tablet,extended 500 mg PO BID 30 days #60 tabs 05/27/23 06/13/23 Rx release 24 hr baclofen 20 mg tablet 20 mg PO TID 06/13/23 06/13/23 History oxycodone-acetaminophen 7.5 mg-325 2 tab PO Q4 PRN Pain,severe 06/13/23 06/13/23 History mg tablet prochlorperazine maleate 5 mg 5 mg PO Q8 PRN Nausea 06/13/23 06/13/23 History tablet Patient History Medical History Costochondritis Infection of left great toe due to methicillin resistant Staphylococcus aureus (MRSA) Diastolic CHF COVID-19 Osteomyelitis of great toe of left foot Chronic pain syndrome Opiate dependence Opiate abuse, continuous Acidosis, lactic Acute dehydration Gastroenteritis Sepsis Shortness of breath Opioid dependence Iron deficiency anemia Hypomagnesemia History of amputation of great toe Diabetic peripheral neuropathy Insomnia 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 No issues per anesthesia postop progress note. HTN (hypertension) Anemia Hyponatremia Cellulitis Peripheral neuropathy Benzodiazepine withdrawal Right second toe ulcer Diabetes mellitus type 2, uncontrolled Hyperlipidemia Seizures Gastritis Depression Chronic back pain Nonobstructive atherosclerosis of coronary artery Numbness of lower extremity Hypertriglyceridemia CAD (coronary artery disease) History of tobacco use Benzodiazepine dependence Restless leg syndrome Diabetic neuropathy Abdominal pain Gastroparesis Esophagitis determined by endoscopy GIB (gastrointestinal bleeding) Insulin dependent diabetes mellitus DM2 (diabetes mellitus, type 2) IDDM, A1c 07/2021-11% Surgical History History of right below knee amputation (12/22/21) Right Below Knee Amputation(Right) - Davon Good MD, FACS History of lumbar surgery History of esophagogastroduodenoscopy (EGD) Family History Mother , age 63 Myocardial infarction Father , age 68 or 69 Myocardial infarction Brother S/P CABG (coronary artery bypass graft) Sister Myocardial infarction x 3; she is 57yo Social History Smoking Status: Former smoker Tobacco Type: Cigarettes packs per day: 0.5; Cigarettes Per Day: 20; Second Hand Exposure: No; Do You Dip or Chew Tobacco: No; Tobacco Cessation Education Requested by Patient: No Hx Alcohol Use: No Hx Substance Use: Yes Prescribed Medications: Marijuana Last Used Substance: Unknown Last Used Substance Other:: Medical marijuana Substance Use Type Other:: medical marijuana Preferred Language: Bangladeshi Communication Ability: Effective Visual Impairment: No Limitations Hearing Ability: Normal Vacuum Cooker Operator Required: No Beliefs That Will Affect Care: None marital status: Current Living Situation: Spouse current occupational status: unemployed 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 Other Information That Helps Us Care for You: No other: raising a grandchild as well; lives in [place] Feels Safe at Home: Yes Safety Concerns: Feels Safe At This Time Diet: diabetic and low salt during the past year weight has: remained stable Assistive Devices: Walker and Wheelchair Review of Systems Review of Systems: All systems reviewed & are unremarkable except as noted in HPI & below Physical Exam Constitutional: cooperative and comfortable Eyes: normal visual cardozo by confrontation Neck: trachea midline Respiratory: normal respiratory effort Cardiovascular: Rate/Rhythm: regular rate and regular rhythm Vessels: posterior tibial pulses present and dorsalis pedis pulses present Musculoskeletal: Extremities: + amputation noted (Right BKA, Left first and second toe amputations) Skin: normal turgor, + turgor decreased and + wound (Incision site well co- apted with exception of small 0.5 x 0.3 x 0.1cm wound) no immediate signs of infection were observed or reported Neurologic: moves all extremities (Absent epicritic sensation) Psychiatric: Orientation: alert and oriented x 3 Results & Data Vital Signs (Past 12 Hours) Vital Signs Temp Pulse Resp BP Pulse Ox O2 Del Method 06/14/23 22:25 37.1 C 73 18 102/65 97 Room Air 06/14/23 19:13 36.5 C 83 18 96/58 L 98 Room Air 06/14/23 16:23 36.4 C L 80 16 92/56 L 96 Room Air 06/14/23 12:44 Room Air Diagnostic Findings [place], [place] [phone] XRay Report Patient: EILEEN ESCOBAR Admit Date: 06/13/23 MR#: [id number] Address1: [address] [place] [address] Acct ID:[id number] Address2: Date: 1965 [facility] Zip: [place] [address] Age: 58 Location: 3W Sex: F Room/Bed: [facility] Att Phy: Snehal Arciniega D.O. Diagnosis: LEFT FOOT PAIN Ana Maria Phy: Vince Vernon DO Service Date: 06/13/23 Fam Phy: Interpreting Phy: Finn Bradshaw [facility] Phy: Snehal Arciniega D.O. Ordering Phy: Dali Cohen MD cc: ~ LEFT FOOT 2 VIEWS CLINICAL HISTORY: Foot infection. History of osteomyelitis. FINDINGS: AP and lateral views of the left foot are compared to study dated 05/08/2023 and correlated with MRI of left foot dated 05/22/2023. The skeletal structures are osteopenic. Again seen is amputation change of the first toe through the distal shaft of the first metatarsal. There has been interval amputation of the second toe through the metatarsophalangeal joint. No acute fracture is seen. No bony erosion or periostitis is identified. Mild osteoarthritic change is seen throughout the midfoot. Soft tissue edema and subcutaneous gas is seen distal to the resection sites. Some of this may be related to recent surgery. Clinical correlation will be required. No radiodense foreign body is identified. IMPRESSION: Postsurgical change as above with no acute bony abnormality identif ied. Electronically signed by: Finn Bradshaw M.D. 06/14/2023 7:24 AM (1) Foot pain Laterality: left Qualified Code(s): M79.672 - Pain in left foot (2) Diabetic foot ulcer Diabetic foot ulcer location: toe Diabetes mellitus type: type 2 Laterality: left Non-pressure ulcer stage: limited to breakdown of skin Qualified Code(s): E11.621 - Type 2 diabetes mellitus with foot ulcer; L97.521 - Non-pressure chronic ulcer of other part of left foot limited to breakdown of skin
[2023-06-15] MEDS: HYDROmorphone INJ 1 MG/ML SYRINGE IV PRN ×3 (04:42→13:22)
--- NOTE | 2023-06-15 07:17 | Hospitalist Progress Note ---
Date of Service June 15, 2023 Assessment & Plan (1) Acute herpes zoster neuropathy: (2) HTN (hypertension): (3) Diabetes mellitus type 2, uncontrolled: (4) Chronic pain syndrome: Plan Pt is a 58yo female with complex medical history of uncontrolled DM, CAD, Chronic pain, PVD s/p right BKA, with recent amputation of left 1st and 2nd toes presenting for diffuse pain and drainage at amputation site and shingles. #Active shingles infection - Herpetic rash noted right T8 dermatome with burning pain concerning for herpes zoster. - continue Valcyte 1000mg po TID - continue pain control with Tylenol, Baclofen, Dilaudid, increased dilaudid to 1 mg q4h for today - today, decreased dilaudid from 1 -> 0.5 mg and increased gabapentin 300mg BID -> TID for neuropathic pain of shingles #Foot pain, s/p recent amputation of left 1st and 2nd toes - WBC count elevated on admission, x-ray does not show osteo, considering MRI after podiatry sees her - awaiting ESR/CRP - continue wound care BID - podiatry consultation appreciated; sutures removed and no intervention planned #HTN, chronic -Continue Metoprolol 50mg po qAM -Continue Lisinopril 10mg po daily #Diabetes mellitus type 2, uncontrolled - Last SfnX2R=2.9 on 05/09/23 - continue Lantus 5u BID and ISS -Goal blood sugar 110 - 140 #Chronic pain syndrome -Continue Elavil, Baclofen, Tylenol, Divalproex, Gabapentin -Dilaudid PRN DVT PPx: Lovenox 40 SQ QAM Admission and Anticipated Discharge Date Admission Date: June 13, 2023 Supervising Physician Co-Signing Physician Notes ATTESTATION I also saw the patient and confirmed tanner portions of the history and exam. I agree with the impression and plan in the resident documentation, and as summarized below. Patient without new complaints this morning. Pain from the shingles seems to be better controlled today. EXAM 152/70, 78, 16, 98% on room air Awake, alert, no acute distress. Talkative. Heart regular Respirations are nonlabored Right sided trunk rash consistent with zoster; she has a small area of irritation left of midline, just below the umbilicus and above the belt line. At present, does not look to be consistent with zoster; does have some excoriation from itching. DATA Labs WBC 9.97, hemoglobin 12.3, platelet count 230 Sodium 135, potassium 4.6, BUN 26, creatinine 0.58 AST 9, ALT 9, Center phosphatase 64 IMPRESSION & PLAN I agree with the impression and plan as noted in the resident documentation above. Will increase gabapentin, will be effective for both her zoster and foot pain. Appreciate podiatry consultation Additional per resident documentation Subjective Pt is a 58yo female with complex medical history of uncontrolled DM, CAD, Chronic pain, PVD s/p right BKA, with recent amputation of left 1st and 2nd toes presenting for diffuse pain and drainage at amputation site and shingles. Today, pt states she feels fine. She states the shingles areas are still very painful and burn, but she does not itch as much as yesterday morning. She states that she is waiting at this point to see what podiatry decides and is just worried with the small opening of her foot incision that it could get infected. Otherwise feeling fine today. Review of Systems Review of Systems: Constitutional: denies fever, chills, Cardio: denies chest pain, Resp: denies shortness of breath, Physical Exam Physical Exam: General:Alert and oriented, no acute distress, but uncomfortable and tearful Cardio: Regular rate and rhythm, Resp:Lungs clear to auscultation b/l, Skin: Warm, pink, dry, cluster of blisters noted under R breast and on R posterior chest wall, scratch pickering noted on posterior cluster Extremities: L foot 1st and 2nd digits s/p recent amputation with sutures in place, oozing some blood and serous fluid, R leg s/p BKA Psych: Mood-affect congruence. Results & Data Results & Data Vital Signs (Past 12 Hours) Vital Signs Temp Pulse Resp BP Pulse Ox O2 Del Method 06/15/23 07:05 36.6 C 86 16 123/71 97 Room Air 06/14/23 22:25 37.1 C 73 18 102/65 97 Room Air 06/14/23 19:45 Room Air Resident Activity Tracking Resident Involvement: Resident Care Provided Care Provided: Adult Hospital Medicine
[2023-06-15] MEDS: METOPROLOL SUCC 50MG EXT REL TAB PO SCH (08:07)
[2023-06-15] MEDS: CLOPIDOGREL BISULFATE 75 MG TAB PO SCH (08:07)
[2023-06-15] MEDS: NICOTINE 14 MG/24 HR PATCH TD SCH (08:08)
[2023-06-15] MEDS: lisinopril 10 MG TAB PO SCH (08:08)
[2023-06-15] MEDS: BACLOFEN 20 MG TAB PO SCH ×3 (08:08→20:40)
[2023-06-15] MEDS: valACYclovir HCL 500 MG TABLET PO SCH ×3 (08:09→20:43)
[2023-06-15] MEDS: PANTOprazole 40 MG TAB PO SCH ×2 (08:09→20:44)
[2023-06-15 08:10] LABS: Basophils # (auto) 0.06 K/uL (0.00-0.20); Basophils % (auto) 0.6 %; Eosinophils # (auto) 0.37 K/uL (0.00-0.50); Eosinophils % (auto) 3.7 %; Hematocrit (blood only) 37.4 % (37.0-47.0); Hemoglobin 12.3 g/dl (12.0-16.0); Immature Granulocytes # (auto) 0.03 K/uL (0.01-0.20); Immature Granulocytes % (auto) 0.3 %; Lymphocytes # (auto) 1.83 K/uL (1.20-3.40); Lymphocytes % (auto) 18.4 %; Mean Corpuscular Hemoglobin 29.1 pg (25.0-34.0); Mean Corpuscular Hgb Conc 32.9 g/dL (32.0-36.0); Mean Corpuscular Volume 88.6 fL (80.0-100.0); Mean Platelet Volume 10.4 fL (9.4-12.4); Monocytes # (auto) 0.73 K/uL (0.11-0.59); Monocytes % (auto) 7.3 %; Neutrophils # (auto) 6.95 K/uL (1.40-6.50); Neutrophils % (auto) 69.7 %; Platelet Count 230 K/uL (130-400); RDW Coefficient of Variation 13.7 % (11.5-14.5); RDW Standard Deviation 44.1 fL (36.4-46.3); Red Blood Count 4.22 M/uL (4.20-5.40); White Blood Count 9.97 K/ul (4.8-10.8)
[2023-06-15] MEDS: GABAPENTIN 300 MG CAP PO SCH ×2 (08:10→20:41)
[2023-06-15] MEDS: DIVALPROEX EXTENDED RELEASE 500 MG TAB PO SCH ×2 (08:10→20:43)
[2023-06-15] MEDS: PRAZOSIN HCL 1 MG CAP PO SCH ×3 (08:10→20:44)
[2023-06-15] MEDS: DOCUSATE SODIUM 100 MG CAP PO SCH ×2 (08:11→20:42)
[2023-06-15 08:40] LABS: Albumin Globulin Ratio 1.5 (0.9-2); BUN Creatinine Ratio 44.8 (10-20); Bilirubin,Total 0.7 mg/dl (0.2-1.0); Calcium 9.1 mg/dl (8.6-10.3); Est GFR (African American) 116.9 ml/min; Est GFR (Non-African American) 100.9 ml/min; Globulin 2.6 gm/dl (2.5-4.0); Potassium 4.6 mmol/L (3.5-5.1); Total Protein 6.6 gm/dl (6.0-8.3)
[2023-06-15] MEDS: ENOXAPARIN INJ 40 MG/0.4 ML SYR SQ SCH (08:49)
[2023-06-15] MEDS: INSULIN ASPART PER UNIT CHARGE SC SCH ×4 (09:10→21:38)
[2023-06-15] MEDS: LANTUS PER UNIT CHARGE SQ SCH ×2 (09:11→21:39)
[2023-06-15] MEDS: HYDROmorphone INJ 0.5 MG/0.5 ML SYR IV PRN ×2 (17:29→21:38)
--- NOTE | 2023-06-15 19:31 | Orthopedic Progress Note ---
Date of Service June 15, 2023 Assessment & Plan (1) Foot pain: Plan: Patient seen and examined at bedside. Dressing is evaluated shows fresh bleeding. Patient is able to unwrap her dressing quickly and is able to point to the bleeding at the the base of the third toe. Remaining incision site appears well co-apted and well healed. Reviewed white count trending down. Clean, dry, dressing applied. This is bolstered and Patient is asked not to remove. No immediate intervention planed. Will continue to follow while Patient remans in house. Thank you for allowing me to participate in the care of this Patient. (2) Diabetic foot ulcer: Admission and Anticipated Discharge Date Admission Date: June 13, 2023 Subjective Patient seen and examined at bedside in room W360-1. Patient is resting comfortably and has no immediate complaints. She does relate chronic pain. Review of Systems Review of Systems: All systems reviewed & are unremarkable except as noted in Subjective Physical Exam Constitutional: cooperative and comfortable Eyes: normal visual cardozo by confrontation Neck: trachea midline Respiratory: normal respiratory effort Cardiovascular: Rate/Rhythm: regular rate and regular rhythm Vessels: posterior tibial pulses present and dorsalis pedis pulses present Musculoskeletal: Extremities: + amputation noted (Right BKA, Left first and second toe amputations) Skin: normal turgor, + turgor decreased and + wound (Incision site well co- apted with exception of small 0.5 x 0.3 x 0.1cm wound) Neurologic: moves all extremities (Absent epicritic sensation) Psychiatric: Orientation: alert and oriented x 3 Results & Data Vital Signs (Past 12 Hours) Vital Signs Temp Pulse Resp BP Pulse Ox O2 Del Method 06/15/23 19:06 37.0 C 84 18 170/84 H 97 Room Air 06/15/23 14:50 37 C 78 16 152/70 H 98 Room Air 06/15/23 13:28 86 105/63 06/15/23 07:45 Room Air (1) Foot pain Laterality: left Qualified Code(s): M79.672 - Pain in left foot (2) Diabetic foot ulcer Diabetes mellitus type: type 2 Diabetic foot ulcer location: toe Laterality: left Non-pressure ulcer stage: limited to breakdown of skin Qualified Code(s): E11.621 - Type 2 diabetes mellitus with foot ulcer; L97.521 - Non-pressure chronic ulcer of other part of left foot limited to breakdown of skin
[2023-06-15] MEDS: AMITRIPTYLINE HCL 50 MG TAB PO SCH (20:41)
[2023-06-15] MEDS: rOPINIRole HCL 2 MG TABLET PO SCH (20:42)
[2023-06-15] MEDS: ALPRAZolam 0.5 MG TABLET PO PRN (21:39)
[2023-06-15] MEDS: ZOLPIDEM TARTRATE 10 MG TAB PO PRN (21:42)
[2023-06-15] MEDS: DAPTOmycin 200 MG in SYRINGE 0 ML IV SCH (23:42)
[2023-06-16] MEDS: HYDROmorphone INJ 0.5 MG/0.5 ML SYR IV PRN ×3 (04:46→17:48)
--- NOTE | 2023-06-16 07:03 | Hospitalist Progress Note ---
Date of Service June 16, 2023 Assessment & Plan (1) Acute herpes zoster neuropathy: (2) HTN (hypertension): (3) Diabetes mellitus type 2, uncontrolled: (4) Chronic pain syndrome: Plan Pt is a 58yo female with complex medical history of uncontrolled DM, CAD, Chronic pain, PVD s/p right BKA, with recent amputation of left 1st and 2nd toes presenting for diffuse pain and drainage at amputation site and shingles. #Active shingles infection - Herpetic rash noted right T8 dermatome with burning pain concerning for herpes zoster. - continue Valcyte 1000mg po TID - continue pain control with Tylenol, Baclofen, Dilaudid, increased dilaudid to 1 mg q4h for today - today, placed her on her home regime she reports of percocet 7.5 mg TID with dilaudid 0.5 mg for breakthrough pain now q6h #Foot pain, s/p recent amputation of left 1st and 2nd toes - WBC count elevated on admission, x-ray does not show osteo, considering MRI after podiatry sees her - awaiting ESR/CRP - continue wound care BID - podiatry consultation appreciated; sutures removed and no intervention planned #HTN, chronic -Continue Metoprolol 50mg po qAM -Continue Lisinopril 10mg po daily #Diabetes mellitus type 2, uncontrolled - Last AtyM8H=1.9 on 05/09/23 - continue Lantus 5u BID and ISS -Goal blood sugar 110 - 140 #Chronic pain syndrome -Continue Elavil, Baclofen, Tylenol, Divalproex, Gabapentin -Dilaudid PRN DVT PPx: Lovenox 40 SQ QAM Admission and Anticipated Discharge Date Admission Date: June 13, 2023 Supervising Physician Co-Signing Physician Notes ATTESTATION I also saw the patient and confirmed tanner portions of the history and exam. I agree with the impression and plan in the resident documentation, and as summarized below. Patient with continued pain at the site of her shingles lesions. She is a little tearful this morning with respect to just being in the hospital a lot recently. EXAM 149/83, 88, 16, 36.5, 97% on room air Awake, alert, no acute distress. Heart regular Respirations are nonlabored Areas of shingles looks similar to yesterday; no new lesions appreciated DATA Labs CBC is unremarkable BUN 25, creatinine 0.53. Glucose 149 Blood cultures dated 06/13/2023 show no growth at 48 hours IMPRESSION & PLAN I agree with the impression and plan as noted in the resident documentation above. Continue current dose of gabapentin Resume home dose of Percocet; Dilaudid for breakthrough Appreciate podiatry consultation Additional per resident documentation Subjective Pt is a 58yo female with complex medical history of uncontrolled DM, CAD, Chronic pain, PVD s/p right BKA, with recent amputation of left 1st and 2nd toes presenting for diffuse pain and drainage at amputation site and shingles. Today, pt was upset and states that her L foot hurts much worse than it did yesterday as she states it had been bleeding some so a pressure wrap was put on to stop the bleeding, but that this is causing her significant pain now. She also notes she feels the shingles on her back is more painful. She states she also felt very nauseated last night after getting the extra dose of gabapentin and that she does not feel it has helped her pain at all. Discussed pt's home pain regime, she states she was taking the percocet 7.5 mg 1-2 times daily, at most 3 times in a day. She states she is aware the prescription was for 180 pills for 30 days, but notes that she is prescribed that so she has extras in case she needs more. Review of Systems Review of Systems: Constitutional: denies fever, chills, Cardio: denies chest pain, Resp: denies shortness of breath, Physical Exam Physical Exam: General:Alert and oriented, no acute distress, but uncomfortable and tearful Cardio: Regular rate and rhythm, Resp:Lungs clear to auscultation b/l, Skin: Warm, pink, dry, cluster of blisters noted under R breast and on R posterior chest wall, lesions unchanged from yesterday Extremities: L foot 1st and 2nd digits s/p recent amputation, now wrapped, R leg s/p BKA Psych: Mood-affect congruence. Results & Data Results & Data Vital Signs (Past 12 Hours) Vital Signs Temp Pulse Resp BP Pulse Ox O2 Del Method 06/16/23 07:00 36.5 C 80 16 158/83 H 97 Room Air 06/15/23 19:06 37.0 C 84 18 170/84 H 97 Room Air Resident Activity Tracking Resident Involvement: Resident Care Provided Care Provided: Adult Hospital Medicine
[2023-06-16 07:37] LABS: BUN Creatinine Ratio 47.2 (10-20); Creatinine Clr Calc Pharmacy 99.6 ml/min; Est GFR (African American) 120.5 ml/min; Est GFR (Non-African American) 103.9 ml/min; Potassium 4.5 mmol/L (3.5-5.1)
[2023-06-16 07:42] LABS: Basophils # (auto) 0.04 K/uL (0.00-0.20); Basophils % (auto) 0.6 %; Eosinophils # (auto) 0.34 K/uL (0.00-0.50); Eosinophils % (auto) 5.1 %; Immature Granulocytes # (auto) 0.01 K/uL (0.01-0.20); Immature Granulocytes % (auto) 0.1 %; Lymphocytes # (auto) 1.72 K/uL (1.20-3.40); Lymphocytes % (auto) 25.7 %; Mean Corpuscular Hemoglobin 29.3 pg (25.0-34.0); Mean Corpuscular Hgb Conc 33.3 g/dL (32.0-36.0); Mean Corpuscular Volume 87.8 fL (80.0-100.0); Monocytes # (auto) 0.57 K/uL (0.11-0.59); Monocytes % (auto) 8.5 %; Platelet Count 212 K/uL (130-400); RDW Coefficient of Variation 13.6 % (11.5-14.5); RDW Standard Deviation 43.8 fL (36.4-46.3); White Blood Count 6.68 K/ul (4.8-10.8)
[2023-06-16] MEDS ORDERED: HYDROmorphone INJ 0.5 MG/0.5 ML SYR IV PRN ×2 (08:06→11:12)
[2023-06-16] MEDS: PANTOprazole 40 MG TAB PO SCH ×2 (08:40→21:21)
[2023-06-16] MEDS: DIVALPROEX EXTENDED RELEASE 500 MG TAB PO SCH ×2 (08:40→21:21)
[2023-06-16] MEDS: valACYclovir HCL 500 MG TABLET PO SCH ×3 (08:41→21:21)
[2023-06-16] MEDS: PRAZOSIN HCL 1 MG CAP PO SCH ×3 (08:41→22:27)
[2023-06-16] MEDS: DOCUSATE SODIUM 100 MG CAP PO SCH ×2 (08:42→21:22)
[2023-06-16] MEDS: GABAPENTIN 300 MG CAP PO SCH ×3 (08:42→20:36)
[2023-06-16] MEDS: BACLOFEN 20 MG TAB PO SCH ×3 (08:42→22:27)
[2023-06-16] MEDS: METOPROLOL SUCC 50MG EXT REL TAB PO SCH (08:43)
[2023-06-16] MEDS: lisinopril 10 MG TAB PO SCH (08:43)
[2023-06-16] MEDS: NICOTINE 14 MG/24 HR PATCH TD SCH (08:43)
[2023-06-16] MEDS: CLOPIDOGREL BISULFATE 75 MG TAB PO SCH (08:43)
[2023-06-16] MEDS: ENOXAPARIN INJ 40 MG/0.4 ML SYR SQ SCH (08:47)
[2023-06-16] MEDS: INSULIN ASPART PER UNIT CHARGE SC SCH ×4 (08:55→22:26)
[2023-06-16] MEDS: LANTUS PER UNIT CHARGE SQ SCH ×2 (08:56→22:26)
[2023-06-16] MEDS: ALPRAZolam 0.5 MG TABLET PO PRN (12:19)
[2023-06-16] MEDS: oxyCODONE/APAP 7.5/325MG TAB PO SCH ×2 (13:53→20:36)
[2023-06-16] MEDS: AMITRIPTYLINE HCL 50 MG TAB PO SCH (21:21)
[2023-06-16] MEDS: PROCHLORPERAZINE MALEATE 5 MG TAB PO PRN (21:21)
[2023-06-16] MEDS: rOPINIRole HCL 2 MG TABLET PO SCH (21:21)
[2023-06-16] MEDS ORDERED: HYDROmorphone INJ 0.5 MG/0.5 ML SYR IV STA (22:11)
[2023-06-16] MEDS: ZOLPIDEM TARTRATE 10 MG TAB PO PRN (22:30)
[2023-06-17] MEDS: DAPTOmycin 200 MG in SYRINGE 0 ML IV SCH (01:22)
[2023-06-17] MEDS: HYDROmorphone INJ 0.5 MG/0.5 ML SYR IV PRN ×4 (02:07→21:08)
[2023-06-17] MEDS: ONDANSETRON INJ 2 MG/ML 2 ML VIAL IV PRN (04:55)
[2023-06-17] MEDS ORDERED: HYDROmorphone INJ 0.5 MG/0.5 ML SYR IV STA (05:10)
--- NOTE | 2023-06-17 06:56 | Hospitalist Progress Note ---
Date of Service June 17, 2023 Assessment & Plan (1) Acute herpes zoster neuropathy: (2) HTN (hypertension): (3) Diabetes mellitus type 2, uncontrolled: (4) Chronic pain syndrome: Plan Pt is a 58yo female with complex medical history of uncontrolled DM, CAD, Chronic pain, PVD s/p right BKA, with recent amputation of left 1st and 2nd toes presenting for diffuse pain and drainage at amputation site and shingles. Today, she was switched from regime percocet 7.5 mg TID scheduled with dilaudid 0.5 q6h back to dilaudid 1.0 mg q4h only, and will plan for discharge tomorrow if podiatry not planning any interventions during this hospitalization. #Active shingles infection - Herpetic rash noted right T8 dermatome with burning pain concerning for herpes zoster. - continue Valcyte 1000mg po TID - continue pain control with Tylenol, Baclofen, Dilaudid, #Foot pain, s/p recent amputation of left 1st and 2nd toes - WBC count elevated on admission, x-ray does not show osteo, considering MRI after podiatry sees her - awaiting ESR/CRP - continue wound care BID - podiatry consultation appreciated; sutures removed and no intervention planned #HTN, chronic -Continue Metoprolol 50mg po qAM -Continue Lisinopril 10mg po daily #Diabetes mellitus type 2, uncontrolled - Last OahB6P=9.9 on 05/09/23 - continue Lantus 5u BID and ISS -Goal blood sugar 110 - 140 #Chronic pain syndrome -Continue Elavil, Baclofen, Tylenol, Divalproex, Gabapentin -Dilaudid PRN DVT PPx: Lovenox 40 SQ QAM Admission and Anticipated Discharge Date Admission Date: June 13, 2023 Supervising Physician Co-Signing Physician Notes ATTESTATION I also saw the patient and confirmed tanner portions of the history and exam. I agree with the impression and plan in the resident documentation, and as summarized below. Patient with continued pain at the site of her shingles lesions. She is frustrated in general, mostly related to her pain and her overall health. We had tried to return to her oral pain medicines yesterday but it seems that her pain has worsened. EXAM 144/79, 77, 16, 37 C, 98% on room air Awake, alert, no acute distress. Heart regular Respirations are nonlabored Areas of shingles looks similar to yesterday; no new lesions appreciated DATA Labs CBC is unremarkable BUN 18, creatinine 0.50 Blood cultures dated 06/13/2023 show no growth at 48 hours IMPRESSION & PLAN I agree with the impression and plan as noted in the resident documentation above. Continue current dose of gabapentin; she notes sedation with attempted higher doses previously Switch to Dilaudid 1 mg every 4 hours as needed Appreciate podiatry consultation Additional per resident documentation Subjective Pt is a 58yo female with complex medical history of uncontrolled DM, CAD, Chronic pain, PVD s/p right BKA, with recent amputation of left 1st and 2nd toes presenting for diffuse pain and drainage at amputation site and shingles. Today, pt was seen this morning and was very upset over her pain regime. She states that the 1 percocet 7.5 mg TID is not enough to even touch her pain as she states she has built up a tolerance to it. She states that with the regime of percocet TID with dilaudid q6h, she is essentially in pain most of the time waiting for the dilaudid to be due to get a short bit of relief. She states that in the past, she has been on dilaudid her entire hospital stay with no weaning to oral opioids prior to discharge, and has been fine when she gets home managing her pain then. She states that she would like to be just on dilaudid today with plans for D/C tomorrow without weaning onto oral, which she states is how her hospitalizations have gone in the past. Review of Systems Review of Systems: Constitutional: denies fever, chills, Cardio: denies chest pain, Resp: denies shortness of breath, Physical Exam Physical Exam: General:Alert and oriented, no acute distress, but uncomfortable and tearful Cardio: Regular rate and rhythm, Resp:Lungs clear to auscultation b/l, Skin: Warm, pink, dry, cluster of blisters noted under R breast and on R post erior chest wall, lesions unchanged from yesterday Extremities: L foot 1st and 2nd digits s/p recent amputation, which are wrapped, R leg s/p BKA Psych: Mood-affect congruence. Results & Data Results & Data Vital Signs (Past 12 Hours) Vital Signs Temp Pulse Resp BP Pulse Ox O2 Del Method 06/16/23 23:00 36.5 C 77 18 183/95 H 98 Room Air Resident Activity Tracking Resident Involvement: Resident Care Provided Care Provided: Adult Hospital Medicine
[2023-06-17 07:27] LABS: Basophils # (auto) 0.05 K/uL (0.00-0.20); Basophils % (auto) 0.7 %; Eosinophils # (auto) 0.42 K/uL (0.00-0.50); Eosinophils % (auto) 5.7 %; Hematocrit (blood only) 36.4 % (37.0-47.0); Immature Granulocytes # (auto) 0.04 K/uL (0.01-0.20); Immature Granulocytes % (auto) 0.5 %; Lymphocytes # (auto) 1.61 K/uL (1.20-3.40); Lymphocytes % (auto) 21.7 %; Mean Corpuscular Hemoglobin 28.8 pg (25.0-34.0); Mean Corpuscular Volume 87.5 fL (80.0-100.0); Mean Platelet Volume 10.7 fL (9.4-12.4); Monocytes # (auto) 0.77 K/uL (0.11-0.59); Monocytes % (auto) 10.4 %; Neutrophils # (auto) 4.54 K/uL (1.40-6.50); Platelet Count 226 K/uL (130-400); RDW Coefficient of Variation 13.5 % (11.5-14.5); RDW Standard Deviation 43.2 fL (36.4-46.3); Red Blood Count 4.16 M/uL (4.20-5.40); White Blood Count 7.43 K/ul (4.8-10.8)
[2023-06-17 07:38] LABS: Creatinine Clr Calc Pharmacy 105.5 ml/min; Est GFR (African American) 122.8 ml/min; Est GFR (Non-African American) 105.9 ml/min; Potassium 4.5 mmol/L (3.5-5.1)
[2023-06-17] MEDS: PRAZOSIN HCL 1 MG CAP PO SCH ×3 (07:49→20:53)
[2023-06-17] MEDS: lisinopril 10 MG TAB PO SCH (07:50)
[2023-06-17] MEDS: METOPROLOL SUCC 50MG EXT REL TAB PO SCH (07:50)
[2023-06-17] MEDS: CLOPIDOGREL BISULFATE 75 MG TAB PO SCH (07:51)
[2023-06-17] MEDS: NICOTINE 14 MG/24 HR PATCH TD SCH (08:02)
[2023-06-17] MEDS ORDERED: HYDROmorphone INJ 0.5 MG/0.5 ML SYR IV PRN (08:03)
[2023-06-17] MEDS: BACLOFEN 20 MG TAB PO SCH ×3 (08:03→20:53)
[2023-06-17] MEDS: DIVALPROEX EXTENDED RELEASE 500 MG TAB PO SCH ×2 (08:03→20:52)
[2023-06-17] MEDS: valACYclovir HCL 500 MG TABLET PO SCH ×3 (08:04→20:54)
[2023-06-17] MEDS: PANTOprazole 40 MG TAB PO SCH ×2 (08:05→20:52)
[2023-06-17] MEDS: DOCUSATE SODIUM 100 MG CAP PO SCH ×2 (08:05→20:52)
[2023-06-17] MEDS: ENOXAPARIN INJ 40 MG/0.4 ML SYR SQ SCH (08:08)
[2023-06-17] MEDS: INSULIN ASPART PER UNIT CHARGE SC SCH ×4 (08:31→20:55)
[2023-06-17] MEDS: LANTUS PER UNIT CHARGE SQ SCH ×2 (08:31→21:04)
--- NOTE | 2023-06-17 09:11 | Orthopedic Progress Note ---
Date of Service June 17, 2023 Assessment & Plan (1) Foot pain: Plan: Patient seen and examined at bedside room W360-1. Dressing is removed and wound examined. Her wound appears stable with no signs of infection observed or reported. Clean, dry, dressing applied. This is bolstered with tape and Patient is asked not to remove. No immediate intervention planed. Continue with plans for Discharge 06/18/23. Will continue to follow while Patient remans in house. Thank you for allowing me to participate in the care of this Patient. (2) Diabetic foot ulcer: Admission and Anticipated Discharge Date Admission Date: June 13, 2023 Subjective Patient is seen and examined at bedside resting in W0-. She is upset and complains over possible plans to change her pain medications. She explains that she feels as if staff are treating her like a drug addict and don't understand the amount of pain she is in. She removed her dressing yesterday to her right foot. Nursing has reapplied and reinforced with tape. Review of Systems Review of Systems: All systems reviewed & are unremarkable except as noted in Subjective Physical Exam Constitutional: cooperative and comfortable Eyes: normal visual cardozo by confrontation Neck: trachea midline Respiratory: normal respiratory effort Cardiovascular: Rate/Rhythm: regular rate and regular rhythm Vessels: posterior tibial pulses present and dorsalis pedis pulses present Musculoskeletal: Extremities: + amputation noted (Right BKA, Left first and second toe amputations) Skin: normal turgor, + turgor decreased and + wound (Incision site well co- apted with exception of small 0.5 x 0.3 x 0.1cm wound) Neurologic: moves all extremities (Absent epicritic sensation) Psychiatric: Orientation: alert and oriented x 3 Results & Data Vital Signs (Past 12 Hours) Vital Signs Temp Pulse Resp BP Pulse Ox O2 Del Method 06/17/23 07:48 92 H 207/84 H 06/17/23 07:06 37 C 92 H 16 203/75 H 98 Room Air 06/16/23 23:00 36.5 C 77 18 183/95 H 98 Room Air (1) Foot pain Laterality: left Qualified Code(s): M79.672 - Pain in left foot (2) Diabetic foot ulcer Diabetes mellitus type: type 2 Diabetic foot ulcer location: toe Laterality: left Non-pressure ulcer stage: limited to breakdown of skin Qualified Code(s): E11.621 - Type 2 diabetes mellitus with foot ulcer; L97.521 - Non-pressure chronic ulcer of other part of left foot limited to breakdown of skin
[2023-06-17] MEDS: AMITRIPTYLINE HCL 50 MG TAB PO SCH (20:52)
[2023-06-17] MEDS: rOPINIRole HCL 2 MG TABLET PO SCH (20:53)
[2023-06-17] MEDS: ZOLPIDEM TARTRATE 10 MG TAB PO PRN (23:00)
[2023-06-18] MEDS: DAPTOmycin 200 MG in SYRINGE 0 ML IV SCH (00:25)
[2023-06-18] MEDS: HYDROmorphone INJ 0.5 MG/0.5 ML SYR IV PRN ×6 (01:23→21:48)
[2023-06-18] MEDS: ONDANSETRON INJ 2 MG/ML 2 ML VIAL IV PRN ×2 (02:13→09:15)
[2023-06-18] MEDS: ALPRAZolam 0.5 MG TABLET PO PRN (05:36)
--- NOTE | 2023-06-18 07:07 | Hospitalist Progress Note ---
Date of Service June 18, 2023 Assessment & Plan (1) Acute herpes zoster neuropathy: (2) HTN (hypertension): (3) Diabetes mellitus type 2, uncontrolled: (4) Chronic pain syndrome: Plan Pt is a 58yo female with complex medical history of uncontrolled DM, CAD, Chronic pain, PVD s/p right BKA, with recent amputation of left 1st and 2nd toes presenting for diffuse pain and drainage at amputation site and shingles. #New diarrhea - watery, nonbloody - will check c diff, pt notes having c diff in the past #Active shingles infection - Herpetic rash noted right T8 dermatome with burning pain concerning for herpes zoster. - continue Valcyte 1000mg po TID - continue pain control with Tylenol, Baclofen, Dilaudid, - continue dilaudid 1 mg q4h #Foot pain, s/p recent amputation of left 1st and 2nd toes - WBC count elevated on admission, x-ray does not show osteo, considering MRI after podiatry sees her - awaiting ESR/CRP - continue wound care BID - podiatry consultation appreciated; sutures removed and no intervention planned #HTN, chronic -Continue Metoprolol 50mg po qAM -Continue Lisinopril 10mg po daily #Diabetes mellitus type 2, uncontrolled - Last StzL1X=7.9 on 05/09/23 - continue Lantus 5u BID and ISS -Goal blood sugar 110 - 140 #Chronic pain syndrome -Continue Elavil, Baclofen, Tylenol, Divalproex, Gabapentin -Dilaudid PRN DVT PPx: Lovenox 40 SQ QAM Admission and Anticipated Discharge Date Admission Date: June 13, 2023 Supervising Physician Co-Signing Physician Notes I personally examined the patient and verified all tanner points of history and exam, discussed case, and agree with decision making with Dr Agee Has shingles rash on her right back and right under her breast. Also notes an itchy area on her left face just under her eye as well as a few open areas under her left breast and left abdomen. foot pain ongoing. doesn't want narcotics Escalated chronically, although does not want to wean hydromorphone acutely either. Vitals noted, in general she is awake and alert pleasant appears at times in no distress and at times uncomfortable. HEENT normocephalic atraumatic mucous membranes moist. Breathing unlabored no accessory muscle use good effort. Flat ulcerated lesions on an erythematous base consistent with zoster right back and right under breast and about a T7/8 dermatome. Skin under her left eye is dull slightly red with no vesicular lesions and no ulcerations, skin under left breast appears slightly erythematous with a small pustule but no ulcerations, skin left lower abdomen appears slight ulcerations but not as much of an erythematous base. The area is most consistent with shingles seem far more tender than the rest. Left foot is dressed and wrapped shinglescontinue Valtrex. Follow lesions on her left face, chest, and abdomenI do not think these are herpetic, but obviously if they evolved to appear more herpetic, then this would represent disseminated zoster. I do not believe this is going to be the case. Continue pain control. Chronic paindoes not want chronic escalation of narcotics, at the same time notes that acutely IV Dilaudid is really helping and does not want it weaned yet. Escalate amitriptyline to 100 mg nightly, scheduled Tylenol, add as needed Toradol. Possibly outpatient follow-up with pain management for consideration of nerve blocks, probably would benefit from outpatient NCV to quantify things better in preparation for pain management follow-up. otherwise as above Subjective Pt is a 58yo female with complex medical history of uncontrolled DM, CAD, Chronic pain, PVD s/p right BKA, with recent amputation of left 1st and 2nd toes presenting for diffuse pain and drainage at amputation site and shingles. Today, pt states that she had an awful night. She states that she had multiple episodes of copious nonbloody, watery diarrhea overnight. She denies cramping, but did have some nausea. She states that she had a hard time sleeping because of it. When asked about her pain, she states that the pain has been better since starting the 1 mg dilaudid q4h, but that nothing ever leaves her pain-free. Review of Systems Review of Systems: Constitutional: denies fever, chills, Cardio: denies chest pain, Resp: denies shortness of breath, Physical Exam Physical Exam: General:Alert and oriented, no acute distress, upset today, tearful at times Cardio: Regular rate and rhythm, Resp:Lungs clear to auscultation b/l, Skin: Warm, pink, dry, cluster of blisters noted under R breast and on R posterior chest wall, lesions unchanged from yesterday Extremities: L foot 1st and 2nd digits s/p recent amputation, which are wrapped, R leg s/p BKA Results & Data Results & Data Vital Signs (Past 12 Hours) Vital Signs Temp Pulse Resp BP Pulse Ox O2 Del Method 06/17/23 22:55 76 183/82 H 06/17/23 21:10 37 C 76 16 193/92 H 99 Room Air Resident Activity Tracking Resident Involvement: Resident Care Provided Care Provided: Adult Hospital Medicine
[2023-06-18 07:26] LABS: Basophils # (auto) 0.04 K/uL (0.00-0.20); Basophils % (auto) 0.6 %; Eosinophils # (auto) 0.42 K/uL (0.00-0.50); Hematocrit (blood only) 37.4 % (37.0-47.0); Hemoglobin 12.2 g/dl (12.0-16.0); Immature Granulocytes # (auto) 0.02 K/uL (0.01-0.20); Immature Granulocytes % (auto) 0.3 %; Lymphocytes # (auto) 1.42 K/uL (1.20-3.40); Lymphocytes % (auto) 20.3 %; Mean Corpuscular Hemoglobin 28.8 pg (25.0-34.0); Mean Corpuscular Hgb Conc 32.6 g/dL (32.0-36.0); Mean Corpuscular Volume 88.4 fL (80.0-100.0); Mean Platelet Volume 10.2 fL (9.4-12.4); Monocytes # (auto) 0.53 K/uL (0.11-0.59); Monocytes % (auto) 7.6 %; Neutrophils # (auto) 4.56 K/uL (1.40-6.50); Neutrophils % (auto) 65.2 %; Platelet Count 225 K/uL (130-400); RDW Coefficient of Variation 13.3 % (11.5-14.5); RDW Standard Deviation 43.4 fL (36.4-46.3); Red Blood Count 4.23 M/uL (4.20-5.40); White Blood Count 6.99 K/ul (4.8-10.8)
[2023-06-18 07:27] LABS: BUN Creatinine Ratio 22.8 (10-20); Calcium 9.4 mg/dl (8.6-10.3); Creatinine Clr Calc Pharmacy 92.6 ml/min; Est GFR (African American) 117.6 ml/min; Est GFR (Non-African American) 101.5 ml/min; Potassium 4.1 mmol/L (3.5-5.1)
--- NOTE | 2023-06-18 08:42 | Orthopedic Progress Note ---
Date of Service June 18, 2023 Assessment & Plan (1) Foot pain: Plan: Patient seen and examined at bedside room W360-1. Patient's dressing has been removed and reapplied. She states it was soiled. Today dressing is removed and wound thoroughly examined. Her wound appears stable with no signs of infection observed or reported. Clean, dry, dressing applied. No immediate intervention planed. Will continue to follow while Patient remans in house. Thank you for allowing me to participate in the care of this Patient. (2) Diabetic foot ulcer: Admission and Anticipated Discharge Date Admission Date: June 13, 2023 Subjective Patient is a 58 year old female seen at bedside for left DFU with complex medical history of uncontrolled DM, CAD, Chronic pain, PVD s/p right BKA, with recent amputation of left 1st and 2nd toes presenting for diffuse pain. Review of Systems Review of Systems: All systems reviewed & are unremarkable except as noted in Subjective Physical Exam Constitutional: cooperative and comfortable Eyes: normal visual cardozo by confrontation Neck: trachea midline Respiratory: normal respiratory effort Cardiovascular: Rate/Rhythm: regular rate and regular rhythm Vessels: posterior tibial pulses present and dorsalis pedis pulses present Musculoskeletal: Extremities: + amputation noted (Right BKA, Left first and second toe amputations) Skin: normal turgor, + turgor decreased and + wound (Incision site well co- apted with exception of small 0.5 x 0.3 x 0.1cm wound) Neurologic: moves all extremities (Absent epicritic sensation) Psychiatric: Orientation: alert and oriented x 3 Results & Data Vital Signs (Past 12 Hours) Vital Signs Temp Pulse Resp BP Pulse Ox O2 Del Method 06/18/23 07:53 36.7 C 92 H 16 189/85 H 98 Room Air 06/17/23 22:55 76 183/82 H 06/17/23 21:10 37 C 76 16 193/92 H 99 Room Air (1) Foot pain Laterality: left Qualified Code(s): M79.672 - Pain in left foot (2) Diabetic foot ulcer Diabetes mellitus type: type 2 Diabetic foot ulcer location: toe Laterality: left Non-pressure ulcer stage: limited to breakdown of skin Qualified Code(s): E11.621 - Type 2 diabetes mellitus with foot ulcer; L97.521 - Non-pressure chronic ulcer of other part of left foot limited to breakdown of skin
[2023-06-18] MEDS: INSULIN ASPART PER UNIT CHARGE SC SCH ×4 (09:03→20:43)
[2023-06-18] MEDS: LANTUS PER UNIT CHARGE SQ SCH ×2 (09:07→20:45)
[2023-06-18] MEDS: BACLOFEN 20 MG TAB PO SCH ×3 (09:11→20:30)
[2023-06-18] MEDS: lisinopril 10 MG TAB PO SCH (09:12)
[2023-06-18] MEDS: PANTOprazole 40 MG TAB PO SCH ×2 (09:12→20:31)
[2023-06-18] MEDS: valACYclovir HCL 500 MG TABLET PO SCH ×3 (09:12→20:32)
[2023-06-18] MEDS: METOPROLOL SUCC 50MG EXT REL TAB PO SCH (09:12)
[2023-06-18] MEDS: CLOPIDOGREL BISULFATE 75 MG TAB PO SCH (09:12)
[2023-06-18] MEDS: DIVALPROEX EXTENDED RELEASE 500 MG TAB PO SCH ×2 (09:13→20:31)
[2023-06-18] MEDS: PRAZOSIN HCL 1 MG CAP PO SCH ×3 (09:13→20:31)
[2023-06-18] MEDS: DOCUSATE SODIUM 100 MG CAP PO SCH ×2 (09:13→20:31)
[2023-06-18] MEDS: NICOTINE 14 MG/24 HR PATCH TD SCH (09:13)
[2023-06-18] MEDS: ENOXAPARIN INJ 40 MG/0.4 ML SYR SQ SCH (09:14)
[2023-06-18] MEDS: PROCHLORPERAZINE MALEATE 5 MG TAB PO PRN (12:25)
[2023-06-18] MEDS ORDERED: KETOROLAC TROMETHAMINE 15 MG/ML VIAL IV ONE (17:34)
--- NOTE | 2023-06-18 17:43 | Billing Data ---
Date of Service June 18, 2023 Coding Level of Care Code 91379 SUB INP/OBS CARE
[2023-06-18] MEDS: rOPINIRole HCL 2 MG TABLET PO SCH (20:32)
[2023-06-18] MEDS: ACETAMINOPHEN 325 MG TAB PO SCH (20:42)
[2023-06-18] MEDS: AMITRIPTYLINE HCL 100 MG TAB PO SCH (20:42)
[2023-06-18] MEDS: ZOLPIDEM TARTRATE 10 MG TAB PO PRN (22:56)
[2023-06-19] MEDS: DAPTOmycin 200 MG in SYRINGE 0 ML IV SCH (01:04)
[2023-06-19] MEDS: ONDANSETRON INJ 2 MG/ML 2 ML VIAL IV PRN ×3 (01:22→14:03)
[2023-06-19] MEDS: HYDROmorphone INJ 0.5 MG/0.5 ML SYR IV PRN ×5 (06:05→22:08)
[2023-06-19 07:04] LABS: Basophils # (auto) 0.05 K/uL (0.00-0.20); Basophils % (auto) 0.8 %; Eosinophils # (auto) 0.43 K/uL (0.00-0.50); Eosinophils % (auto) 6.8 %; Hematocrit (blood only) 35.9 % (37.0-47.0); Hemoglobin 11.9 g/dl (12.0-16.0); Immature Granulocytes # (auto) 0.01 K/uL (0.01-0.20); Immature Granulocytes % (auto) 0.2 %; Lymphocytes # (auto) 1.46 K/uL (1.20-3.40); Lymphocytes % (auto) 23.1 %; Mean Corpuscular Hgb Conc 33.1 g/dL (32.0-36.0); Mean Corpuscular Volume 87.6 fL (80.0-100.0); Mean Platelet Volume 10.1 fL (9.4-12.4); Monocytes # (auto) 0.45 K/uL (0.11-0.59); Monocytes % (auto) 7.1 %; Neutrophils # (auto) 3.92 K/uL (1.40-6.50); Platelet Count 201 K/uL (130-400); RDW Coefficient of Variation 13.2 % (11.5-14.5); RDW Standard Deviation 42.7 fL (36.4-46.3); White Blood Count 6.32 K/ul (4.8-10.8)
[2023-06-19 07:43] LABS: BUN Creatinine Ratio 35.8 (10-20); Calcium 9.4 mg/dl (8.6-10.3); Creatinine Clr Calc Pharmacy 99.6 ml/min; Est GFR (African American) 120.5 ml/min; Est GFR (Non-African American) 103.9 ml/min; Potassium 4.4 mmol/L (3.5-5.1)
[2023-06-19] MEDS: KETOROLAC TROMETHAMINE 15 MG/ML VIAL IV PRN ×2 (07:55→16:23)
[2023-06-19] MEDS: ACETAMINOPHEN 325 MG TAB PO SCH ×3 (07:55→21:24)
[2023-06-19] MEDS: PRAZOSIN HCL 1 MG CAP PO SCH ×3 (07:55→21:25)
[2023-06-19] MEDS: BACLOFEN 20 MG TAB PO SCH ×3 (07:56→21:25)
[2023-06-19] MEDS: PANTOprazole 40 MG TAB PO SCH ×2 (07:56→21:25)
[2023-06-19] MEDS: valACYclovir HCL 500 MG TABLET PO SCH ×2 (07:57→13:39)
[2023-06-19] MEDS: lisinopril 10 MG TAB PO SCH (07:57)
[2023-06-19] MEDS: DOCUSATE SODIUM 100 MG CAP PO SCH (07:58)
[2023-06-19] MEDS: METOPROLOL SUCC 50MG EXT REL TAB PO SCH (07:58)
[2023-06-19] MEDS: CLOPIDOGREL BISULFATE 75 MG TAB PO SCH (07:58)
[2023-06-19] MEDS: ENOXAPARIN INJ 40 MG/0.4 ML SYR SQ SCH (07:58)
[2023-06-19] MEDS: NICOTINE 14 MG/24 HR PATCH TD SCH (07:59)
[2023-06-19] MEDS: DIVALPROEX EXTENDED RELEASE 500 MG TAB PO SCH ×2 (07:59→21:25)
--- NOTE | 2023-06-19 08:16 | Hospitalist Progress Note ---
Date of Service June 19, 2023 Assessment & Plan (1) Acute herpes zoster neuropathy: (2) HTN (hypertension): (3) Diabetes mellitus type 2, uncontrolled: (4) Chronic pain syndrome: Plan Mariana Witt is a 58 year-old female with complex medical history of uncontrolled DM, CAD, Chronic pain, PVD s/p right BKA, with recent amputation of left 1st and 2nd toes presenting for diffuse pain and drainage at amputation site and shingles. New diarrhea - watery, nonbloody - C diff negative, suspect due to overflow diarrhea from chronic constipation. Will start Miralax TID Disseminated Shingles - Herpetic rash with burning pain concerning for herpes zoster, now at multiple locations in several dermatomes - Will switch to IV Acyclovir - Keep close watch on developing rash below left eye, if worsening would have low threshold to consult ophthalmology - continue pain control with Tylenol, Baclofen, Dilaudid, - continue dilaudid 1 mg q4h - added hydroxyzine for intense itching Foot pain, s/p recent amputation of left 1st and 2nd toes - WBC count elevated on admission, x-ray does not show osteo - continue wound care BID - podiatry consultation appreciated; sutures removed and no intervention planned HTN, chronic -Continue Metoprolol 50mg po qAM -Continue Lisinopril 10mg po daily Diabetes mellitus type 2, uncontrolled - Last OcsE0R=2.9 on 05/09/23 - continue Lantus 5u BID and ISS -Goal blood sugar 110 - 140 Chronic pain syndrome -Continue Elavil, Baclofen, Tylenol, Divalproex, Gabapentin -Dilaudid PRN DVT PPx: Lovenox 40 SQ QAM Admission and Anticipated Discharge Date Admission Date: June 13, 2023 Supervising Physician Co-Signing Physician Notes I personally examined the patient and verified all tanner points of history and exam, discussed case, and agree with decision making with Dr Patel Rash on right flank and chest continues to burn, rash under left breast, left lower abdomen and left cheek have gotten worse and are burning more than yes terday. Ongoing diarrhea. left eye feels slightly filmy to vision although her vision is intact Vitals noted, in general she is awake and alert pleasant appears at times in no distress and at times uncomfortable. HEENT normocephalic atraumatic mucous membranes moist. Breathing unlabored no accessory muscle use good effort. Flat ulcerated lesions on an erythematous base consistent with zoster right back and right under breast and about a T7/8 dermatome. Skin under her left eye is Slightly brighter red than yesterday definitely more tender even to light touch still no vesicles and no ulcerations, skin under left breast appears more erythematous with small ulceration consistent with zoster, skin left lower abdomen appears most consistent with zoster as well flat red area with shallow ulcerations shingles disseminated zosterIV acyclovir. Check HIV and CD4/lymphocyte, follow L eye closely low threshold for ophthalmology involvement Chronic paincontinue multimodal managment. Possibly outpatient follow-up with pain management for consideration of nerve blocks, probably would benefit from outpatient NCV to quantify things better in preparation for pain management follow-up. diarrhea - almost certainly overflow from chronic constipation - prior CT from ~a month ago showed significant fecal load (and she was here slightly over a week later wtih n/v/d) otherwise as above Subjective Patient was seen and examined at bedside. Notes worsening diarrhea, now it is purely liquid. She also notes that her shingles rashes are extremely itchy and more burning/painful today. Also endorses nausea. Review of Systems Review of Systems: As per above Physical Exam Constitutional: WD/WN, vitals as above Eyes: Erythema below left eye. No conjunctival abnormality ENMT: Ears: no external ear abnormality Nose: no external nose abnormality Moist mucous membranes Respiratory: normal respiratory effort, lungs clear to auscultation Cardiovascular: Rate/Rhythm: regular rate and regular rhythm Gastrointestinal (Abdomen): Abdomen soft, nontender and nondistended Skin: erythematous vesicles in patches below bilateral breasts, below umbilicus and at mid thoracic back. Psychiatric: A+Ox3, euthymic affect Resident Activity Tracking Resident Involvement: Resident Care Provided Care Provided: Adult [facility] Medicine
[2023-06-19] MEDS: INSULIN ASPART PER UNIT CHARGE SC SCH ×4 (09:00→22:11)
[2023-06-19] MEDS: LANTUS PER UNIT CHARGE SQ SCH ×2 (09:04→22:11)
[2023-06-19] MEDS ORDERED: PROCHLORPERAZINE 5 MG in SYRINGE 4 ML IV PRN (11:02)
[2023-06-19] MEDS: DEXTROSE 5% IV SCH (16:15)
[2023-06-19] MEDS: ACYCLOVIR SOD IV SCH (16:15)
[2023-06-19] MEDS: hydrOXYzine HCl 25 MG TAB PO PRN (16:22)
[2023-06-19] MEDS: ALPRAZolam 0.5 MG TABLET PO PRN (16:22)
--- NOTE | 2023-06-19 19:26 | Billing Data ---
Date of Service June 19, 2023 Coding Level of Care Code 05246 SUB INP/OBS CARE MIN
[2023-06-19] MEDS: AMITRIPTYLINE HCL 100 MG TAB PO SCH (21:25)
[2023-06-19] MEDS: POLYETHYLENE (MIRALAX) 17 GM PACK PO SCH (21:25)
[2023-06-19] MEDS: rOPINIRole HCL 2 MG TABLET PO SCH (21:25)
[2023-06-19] MEDS: ZOLPIDEM TARTRATE 10 MG TAB PO PRN (22:15)
[2023-06-20] MEDS: DEXTROSE 5% IV SCH ×3 (00:33→17:28)
[2023-06-20] MEDS: ACYCLOVIR SOD IV SCH ×3 (00:33→17:28)
[2023-06-20] MEDS: HYDROmorphone INJ 0.5 MG/0.5 ML SYR IV PRN ×5 (02:18→21:28)
--- NOTE | 2023-06-20 07:07 | Hospitalist Progress Note ---
Date of Service June 20, 2023 Assessment & Plan (1) Acute herpes zoster neuropathy: (2) HTN (hypertension): (3) Diabetes mellitus type 2, uncontrolled: (4) Chronic pain syndrome: Plan Mariana Witt is a 58 year-old female with complex medical history of uncontrolled DM, CAD, Chronic pain, PVD s/p right BKA, with recent amputation of left 1st and 2nd toes presenting for diffuse pain and drainage at amputation site and shingles. As pt feeling about the same, will continue to monitor today. New diarrhea - watery, nonbloody - C diff negative, suspect due to overflow diarrhea from chronic constipation - continue Miralax TID Disseminated Shingles - Herpetic rash with burning pain concerning for herpes zoster, now at multiple locations in several dermatomes - Keep close watch on developing rash below left eye, if worsening would have low threshold to consult ophthalmology - continue pain control with Tylenol, Baclofen, Dilaudid, - continue dilaudid 1 mg q4h - Continue IV Acyclovir - Continue hydroxyzine for intense itching Foot pain, s/p recent amputation of left 1st and 2nd toes - WBC count elevated on admission, x-ray does not show osteo - continue wound care BID - podiatry consultation appreciated; sutures removed and no intervention planned HTN, chronic -Continue Metoprolol 50mg po qAM -Continue Lisinopril 10mg po daily Diabetes mellitus type 2, uncontrolled - Last ItrK6A=8.9 on 05/09/23 - continue Lantus 5u BID and ISS -Goal blood sugar 110 - 140 Chronic pain syndrome -Continue Elavil, Baclofen, Tylenol, Divalproex, Gabapentin -Dilaudid PRN DVT PPx: Lovenox 40 SQ QAM Admission and Anticipated Discharge Date Admission Date: June 13, 2023 Supervising Physician Co-Signing Physician Notes I personally examined the patient and verified all tanner points of history and exam, discussed case, and agree with decision making with Dr Jorge bennett continues to hurt. had diarrhea and incontinence again Vitals noted, in general she is awake and alert pleasant appears at times in no distress and at times uncomfortable. HEENT normocephalic atraumatic mucous membranes moist. Breathing unlabored no accessory muscle use good effort. shingles lesions ~T7 on LEFT and RIGHT, ~T11 on LEFT, V2 LEFT all evolving. T7 RIGHT starting to crust on her back shingles disseminated zosterIV acyclovir. awaiting HIV and CD4/lymphocyte, f ollow L eye closely low threshold for ophthalmology involvement - no changes (and is V2 so unlikely to happen - except that she does have disseminated shingles) Chronic paincontinue multimodal management. Possibly outpatient follow-up with pain management for consideration of nerve blocks, probably would benefit from outpatient NCV to quantify things better in preparation for pain management follow-up. diarrhea - almost certainly overflow from chronic constipation - prior CT from ~a month ago showed significant fecal load (and she was here slightly over a week later wtih n/v/d) - Started with MiraLAX 17 g 3 times dailybut after discussion, patient is bothered enough by symptoms that she would rather endure a bowel prep and get ahead of things quickly than get there more slowlyGoLytely ordered otherwise as above Jagdish Witt is a 58 year-old female with complex medical history of uncontrolled DM, CAD, Chronic pain, PVD s/p right BKA, with recent amputation of left 1st and 2nd toes presenting for diffuse pain and drainage at amputation site and shingles. Today, pt states that she feels about the same as yesterday. She states she is still having a lot of diarrhea but it has not worsening. Overall, she states she is very tired but feels no worse than yesterday. Review of Systems Review of Systems: As per above Physical Exam Physical Exam: General:Alert and oriented, no acute distress, upset today, tearful at times Cardio: Regular rate and rhythm, Resp:Lungs clear to auscultation b/l, Skin: Warm, pink, dry, cluster of blisters noted under R breast and on R posterior chest wall, Extremities: L foot 1st and 2nd digits s/p recent amputation, which are wrapped, R leg s/p BKA Results & Data Results & Data Vital Signs (Past 12 Hours) Vital Signs Temp Pulse Resp BP Pulse Ox O2 Del Method 06/19/23 19:13 36.5 C 82 18 173/78 H 97 Room Air Resident Activity Tracking Resident Involvement: Resident Care Provided Care Provided: Adult Hospital Medicine
[2023-06-20 07:25] LABS: Basophils # (auto) 0.04 K/uL (0.00-0.20); Basophils % (auto) 0.6 %; Eosinophils # (auto) 0.48 K/uL (0.00-0.50); Eosinophils % (auto) 7.5 %; Hematocrit (blood only) 33.7 % (37.0-47.0); Hemoglobin 11.3 g/dl (12.0-16.0); Immature Granulocytes # (auto) 0.01 K/uL (0.01-0.20); Immature Granulocytes % (auto) 0.2 %; Lymphocytes # (auto) 1.77 K/uL (1.20-3.40); Lymphocytes % (auto) 27.8 %; Mean Corpuscular Hemoglobin 28.8 pg (25.0-34.0); Mean Corpuscular Hgb Conc 33.5 g/dL (32.0-36.0); Mean Corpuscular Volume 85.8 fL (80.0-100.0); Mean Platelet Volume 10.3 fL (9.4-12.4); Monocytes # (auto) 0.43 K/uL (0.11-0.59); Monocytes % (auto) 6.8 %; Neutrophils # (auto) 3.64 K/uL (1.40-6.50); Neutrophils % (auto) 57.1 %; Platelet Count 201 K/uL (130-400); RDW Coefficient of Variation 13.1 % (11.5-14.5); RDW Standard Deviation 41.1 fL (36.4-46.3); Red Blood Count 3.93 M/uL (4.20-5.40); White Blood Count 6.37 K/ul (4.8-10.8)
[2023-06-20 07:51] LABS: Calcium 8.8 mg/dl (8.6-10.3); Potassium 4.2 mmol/L (3.5-5.1)
[2023-06-20 07:57] LABS: BUN Creatinine Ratio 40.7 (10-20); Creatinine Clr Calc Pharmacy 89.4 ml/min; Est GFR (African American) 116.3 ml/min; Est GFR (Non-African American) 100.3 ml/min
[2023-06-20] MEDS: POLYETHYLENE (MIRALAX) 17 GM PACK PO SCH ×3 (08:17→22:20)
[2023-06-20] MEDS: ONDANSETRON INJ 2 MG/ML 2 ML VIAL IV PRN (08:21)
[2023-06-20] MEDS: NICOTINE 14 MG/24 HR PATCH TD SCH (08:25)
[2023-06-20] MEDS: ACETAMINOPHEN 325 MG TAB PO SCH ×3 (08:25→21:24)
[2023-06-20] MEDS: BACLOFEN 20 MG TAB PO SCH ×3 (08:26→21:25)
[2023-06-20] MEDS: DIVALPROEX EXTENDED RELEASE 500 MG TAB PO SCH ×2 (08:26→21:26)
[2023-06-20] MEDS: PANTOprazole 40 MG TAB PO SCH ×2 (08:26→21:25)
[2023-06-20] MEDS: PRAZOSIN HCL 1 MG CAP PO SCH ×3 (08:26→21:31)
[2023-06-20] MEDS: METOPROLOL SUCC 50MG EXT REL TAB PO SCH (08:27)
[2023-06-20] MEDS: lisinopril 10 MG TAB PO SCH (08:27)
[2023-06-20] MEDS: CLOPIDOGREL BISULFATE 75 MG TAB PO SCH (08:30)
[2023-06-20] MEDS: ENOXAPARIN INJ 40 MG/0.4 ML SYR SQ SCH (08:31)
[2023-06-20] MEDS: INSULIN ASPART PER UNIT CHARGE SC SCH ×4 (08:49→21:29)
[2023-06-20] MEDS: LANTUS PER UNIT CHARGE SQ SCH ×2 (08:50→21:29)
[2023-06-20] MEDS: KETOROLAC TROMETHAMINE 15 MG/ML VIAL IV PRN (11:28)
[2023-06-20] MEDS ORDERED: LAVAGE SOLUTION 4000ML PO SCH (13:00)
--- NOTE | 2023-06-20 20:17 | Billing Data ---
Date of Service June 20, 2023 Coding Level of Care Code 06229 SUB INP/OBS CARE
[2023-06-20] MEDS: rOPINIRole HCL 2 MG TABLET PO SCH (21:25)
[2023-06-20] MEDS: AMITRIPTYLINE HCL 100 MG TAB PO SCH (21:25)
[2023-06-20] MEDS: ZOLPIDEM TARTRATE 10 MG TAB PO PRN (21:25)
[2023-06-21] MEDS: ACYCLOVIR SOD IV SCH ×4 (01:38→23:31)
[2023-06-21] MEDS: DEXTROSE 5% IV SCH ×4 (01:38→23:31)
[2023-06-21] MEDS: HYDROmorphone INJ 0.5 MG/0.5 ML SYR IV PRN ×5 (02:04→22:09)
[2023-06-21] MEDS: ONDANSETRON INJ 2 MG/ML 2 ML VIAL IV PRN (03:04)
[2023-06-21] MEDS: KETOROLAC TROMETHAMINE 15 MG/ML VIAL IV PRN ×3 (04:42→21:00)
--- NOTE | 2023-06-21 07:10 | Hospitalist Progress Note ---
Date of Service June 21, 2023 Assessment & Plan (1) Acute herpes zoster neuropathy: (2) HTN (hypertension): (3) Diabetes mellitus type 2, uncontrolled: (4) Chronic pain syndrome: Plan Mariana Witt is a 58 year-old female with complex medical history of uncontrolled DM, CAD, Chronic pain, PVD s/p right BKA, with recent amputation of left 1st and 2nd toes presenting for diffuse pain and drainage at amputation site and shingles. Diarrhea - watery, nonbloody - C diff negative, suspect due to overflow diarrhea from chronic constipation - continue Miralax TID, given golytely yesterday Disseminated Shingles - Herpetic rash with burning pain concerning for herpes zoster, now at multiple locations in several dermatomes - Keep close watch on developing rash below left eye, if worsening would have low threshold to consult ophthalmology - continue pain control with Tylenol, Baclofen, Dilaudid, - continue dilaudid 1 mg q4h - Continue IV Acyclovir - Continue hydroxyzine for intense itching Foot pain, s/p recent amputation of left 1st and 2nd toes - WBC count elevated on admission, x-ray does not show osteo - continue wound care BID - podiatry consultation appreciated; sutures removed and no intervention planned HTN, chronic -Continue Metoprolol 50mg po qAM -Continue Lisinopril 10mg po daily Diabetes mellitus type 2, uncontrolled - Last DrfA0R=1.9 on 05/09/23 - continue Lantus 5u BID and ISS -Goal blood sugar 110 - 140 Chronic pain syndrome -Continue Elavil, Baclofen, Tylenol, Divalproex, Gabapentin -Dilaudid PRN DVT PPx: Lovenox 40 SQ QAM Admission and Anticipated Discharge Date Admission Date: June 13, 2023 Supervising Physician Co-Signing Physician Notes I personally examined the patient and verified all tanner points of history and exam, discussed case, and agree with decision making with Dr Patel Shingles still burning. Having a lot of bowel movements. Vitals noted, in general she is awake and alert pleasant appears at times in no distress and at times uncomfortable. HEENT normocephalic atraumatic mucous membranes moist. Breathing unlabored no accessory muscle use good effort. shingles lesions ~T7 on LEFT and RIGHT, ~T11 on LEFT, V2 LEFT all evolving. T7 RIGHT starting to crust on her back. Abdomen soft nondistended nontender. shingles disseminated zosterIV acyclovir. lesions do appear to be crusting over except the one on her left lower abdomenalthough I wonder if her waistband will rub the ulceration open. Stillawaiting HIV and CD4/lymphocyte, follow L eye closely low threshold for ophthalmology involvement - no changes (and is V2 so unlikely to happen - except that she does have disseminated shingles) Chronic paincontinue multimodal management. Possibly outpatient follow-up with pain management for consideration of nerve blocks, probably would benefit from outpatient NCV to quantify things better in preparation for pain management follow-up. diarrhea - almost certainly overflow from chronic constipation - prior CT from ~a month ago showed significant fecal load (and she was here slightly over a week later wtih n/v/d) - Lots of bowel movements with bowel prep. Continue to follow. If she still has explosive diarrhea/fecal incontinence after thiswe will repeat imaging to see if she still has retained fecal load, if everything seems clear, then would need to explore other etiologiesbut exceedingly likely this is overflow. otherwise as above Jagdish Witt is a 58 year-old female with complex medical history of uncontrolled DM, CAD, Chronic pain, PVD s/p right BKA, with recent amputation of left 1st and 2nd toes presenting for diffuse pain and drainage at amputation site and shingles. Today, pt states that she feels unwell still. She notes she is having the expected copious diarrhea on the golytely regime. No cramps or nausea/vomiting. She states she is also having significant pain over the shingles on her R back. She states she is just very frustrated today, as she had to be stuck numerous times yesterday to get a functional IV line. She states she just wants to feel better and be able to go home feeling better than when she came in. She states that the shingles below her L eye are bothersome since she knows they are there but that her vision is the same as yesterday. Review of Systems Review of Systems: As per above. Physical Exam Physical Exam: General:Alert and oriented, no acute distress, tearful and upset Cardio: Regular rate and rhythm, Resp:Lungs clear to auscultation b/l, Skin: Warm, pink, dry, cluster of blisters noted under R breast and on R posterior chest wall, some shingles lesions noted under L eye Extremities: L foot 1st and 2nd digits s/p recent amputation, which are wrapped, R leg s/p BKA Results & Data Results & Data Vital Signs (Past 12 Hours) Vital Signs Temp Pulse Resp BP Pulse Ox O2 Del Method 06/20/23 23:12 36.6 C 89 18 226/96 H 97 Room Air Resident Activity Tracking Resident Involvement: Resident Care Provided Care Provided: Adult Hospital Medicine
[2023-06-21] MEDS: INSULIN ASPART PER UNIT CHARGE SC SCH ×4 (08:34→20:56)
[2023-06-21 08:39] LABS: Basophils # (auto) 0.05 K/uL (0.00-0.20); Basophils % (auto) 0.7 %; Eosinophils # (auto) 0.45 K/uL (0.00-0.50); Eosinophils % (auto) 5.9 %; Hematocrit (blood only) 38.2 % (37.0-47.0); Immature Granulocytes # (auto) 0.02 K/uL (0.01-0.20); Immature Granulocytes % (auto) 0.3 %; Lymphocytes # (auto) 2.62 K/uL (1.20-3.40); Lymphocytes % (auto) 34.5 %; Mean Corpuscular Volume 85.1 fL (80.0-100.0); Mean Platelet Volume 10.3 fL (9.4-12.4); Monocytes # (auto) 0.48 K/uL (0.11-0.59); Monocytes % (auto) 6.3 %; Neutrophils # (auto) 3.98 K/uL (1.40-6.50); Neutrophils % (auto) 52.3 %; Platelet Count 213 K/uL (130-400); RDW Coefficient of Variation 12.9 % (11.5-14.5); RDW Standard Deviation 39.9 fL (36.4-46.3); Red Blood Count 4.49 M/uL (4.20-5.40)
[2023-06-21] MEDS: LANTUS PER UNIT CHARGE SQ SCH ×2 (08:43→20:56)
[2023-06-21 08:53] LABS: BUN Creatinine Ratio 36.8 (10-20); Calcium 9.7 mg/dl (8.6-10.3); Creatinine Clr Calc Pharmacy 92.6 ml/min; Est GFR (African American) 117.6 ml/min; Est GFR (Non-African American) 101.5 ml/min; Potassium 4.3 mmol/L (3.5-5.1)
[2023-06-21] MEDS: ACETAMINOPHEN 325 MG TAB PO SCH ×3 (08:56→20:57)
[2023-06-21] MEDS: BACLOFEN 20 MG TAB PO SCH ×3 (08:57→21:00)
[2023-06-21] MEDS: lisinopril 10 MG TAB PO SCH (08:57)
[2023-06-21] MEDS: CLOPIDOGREL BISULFATE 75 MG TAB PO SCH (08:57)
[2023-06-21] MEDS: PANTOprazole 40 MG TAB PO SCH ×2 (08:57→21:00)
[2023-06-21] MEDS: DIVALPROEX EXTENDED RELEASE 500 MG TAB PO SCH ×2 (08:57→20:59)
[2023-06-21] MEDS: PRAZOSIN HCL 1 MG CAP PO SCH ×3 (08:57→20:59)
[2023-06-21] MEDS: ENOXAPARIN INJ 40 MG/0.4 ML SYR SQ SCH (08:57)
[2023-06-21] MEDS: METOPROLOL SUCC 50MG EXT REL TAB PO SCH (08:57)
[2023-06-21] MEDS: NICOTINE 14 MG/24 HR PATCH TD SCH (08:58)
[2023-06-21] MEDS: POLYETHYLENE (MIRALAX) 17 GM PACK PO SCH ×3 (08:58→20:58)
--- NOTE | 2023-06-21 17:59 | Billing Data ---
Date of Service June 21, 2023 Coding Level of Care Code 35230 SUB INP/OBS CARE MIN
[2023-06-21] MEDS: ALPRAZolam 0.5 MG TABLET PO PRN (18:40)
[2023-06-21] MEDS: rOPINIRole HCL 2 MG TABLET PO SCH (20:58)
[2023-06-21] MEDS: AMITRIPTYLINE HCL 100 MG TAB PO SCH (21:00)
[2023-06-21] MEDS: ZOLPIDEM TARTRATE 10 MG TAB PO PRN (21:00)
--- NOTE | 2023-06-22 06:48 | Hospitalist Progress Note ---
Date of Service June 22, 2023 Assessment & Plan (1) Acute herpes zoster neuropathy: (2) HTN (hypertension): (3) Diabetes mellitus type 2, uncontrolled: (4) Chronic pain syndrome: Plan Mariana Witt is a 58 year-old female with complex medical history of uncontrolled DM, CAD, Chronic pain, PVD s/p right BKA, with recent amputation of left 1st and 2nd toes presenting for diffuse pain and drainage at amputation site and shingles. New skin irritation likely local allergy or irritation from the IV bandage from yesterday. continue hydroxyzine prn for itchiness. Pt informed D/C planning will be when shingles lesions crust over, likely tomorrow, and when stools are more controllable. Likely Sunday. Diarrhea - watery, nonbloody - C diff negative, suspect due to overflow diarrhea from chronic constipation - continue Miralax TID, s/p golytely, Disseminated Shingles - Herpetic rash with burning pain concerning for herpes zoster, now at multiple locations in several dermatomes - Keep close watch on developing rash below left eye, if worsening would have low threshold to consult ophthalmology - continue pain control with Tylenol, Baclofen, Dilaudid, - continue dilaudid 1 mg q4h - Continue IV Acyclovir - Continue hydroxyzine for intense itching - areas seem to be largely crusting over, but some spots remain open and still very bothersome Foot pain, s/p recent amputation of left 1st and 2nd toes - WBC count elevated on admission, x-ray does not show osteo - continue wound care BID - podiatry consultation appreciated; sutures removed and no intervention planned HTN, chronic -Continue Metoprolol 50mg po qAM -Continue Lisinopril 10mg po daily Diabetes mellitus type 2, uncontrolled - Last UtaS8Z=6.9 on 05/09/23 - continue Lantus 5u BID and ISS -Goal blood sugar 110 - 140 Chronic pain syndrome -Continue Elavil, Baclofen, Tylenol, Divalproex, Gabapentin -Dilaudid PRN DVT PPx: Lovenox 40 SQ QAM Admission and Anticipated Discharge Date Admission Date: June 13, 2023 Supervising Physician Co-Signing Physician Notes I personally examined the patient and verified all tanner points of history and exam, discussed case, and agree with decision making with Dr Patel Shingles still burning. Having a lot of bowel movements, Surprised at how much stool she had. Still had an accident overnight.. Vitals noted, in general she is awake and alert pleasant appears at times in no distress and at times uncomfortable. HEENT normocephalic atraumatic mucous membranes moist. Breathing unlabored no accessory muscle use good effort. shingles lesions All appearing to crust/regress outside of the roughly T11 on the left which seems to be getting rubbed by her waistband shingles disseminated zosterIV acyclovir. lesions do appear to be crusting over except the one on her left lower abdomenalthough I wonder if her waistband will rub the ulceration open. Still awaiting HIV and CD4/lymphocyte. probably can switch back to p.o. Valtrex in the next 1-2 days. Chronic paincontinue multimodal management. Possibly outpatient follow-up with pain management for consideration of nerve blocks, probably would benefit from outpatient NCV to quantify things better in preparation for pain management follow-up. diarrhea - almost certainly overflow from chronic constipation - prior CT from ~a month ago showed significant fecal load (and she was here slightly over a week later wt n/v/d) - Lots of bowel movements with bowel prep. Continue to follow. If she still has explosive diarrhea/fecal incontinence after thiswe will repeat imaging to see if she still has retained fecal load, if everything seems clear, then would need to explore other etiologiesbut exceedingly likely this is overflow. Seems to be improving though otherwise as above Jagdish Witt is a 58 year-old female with complex medical history of uncontrolled DM, CAD, Chronic pain, PVD s/p right BKA, with recent amputation of left 1st and 2nd toes presenting for diffuse pain and drainage at amputation site and shingles. Today, pt states she is still having copious bowel movements and some stomach cramping, but otherwise feels no better or worse than yesterday. She states the shingles cluster on her LLQ of her abdomen has really been burning and bothering her, so shes been trying her best to keep her waist band from rubbing against it and making it worse. She also notes her R upper arm is red and itchy since the IV was removed yesterday. No questions or further complaints at this time. Review of Systems Review of Systems: As per above. Physical Exam Physical Exam: General:Alert and oriented, no acute distress, tearful and upset Cardio: Regular rate and rhythm, Resp:Lungs clear to auscultation b/l, Skin: Warm, pink, dry, cluster of blisters noted under R breast and on R posterior chest wall that are crusting over, some shingles lesions noted under L eye, cluster of lesions on LLQ of abdomen with one ulcerated spot, not yet crusting over, R upper arm local irritation that mimic outline of bandage applied for the line yesterday Extremities: L foot 1st and 2nd digits s/p recent amputation, which are wrapped, R leg s/p BKA Results & Data Results & Data Vital Signs (Past 12 Hours) Vital Signs Temp Pulse Resp BP Pulse Ox O2 Del Method 06/21/23 21:41 36.9 C 86 16 183/85 H 98 Room Air Resident Activity Tracking Resident Involvement: Resident Care Provided Care Provided: Adult Hospital Medicine
[2023-06-22] MEDS: HYDROmorphone INJ 0.5 MG/0.5 ML SYR IV PRN ×4 (06:57→21:28)
[2023-06-22 07:27] LABS: Basophils # (auto) 0.05 K/uL (0.00-0.20); Basophils % (auto) 0.7 %; Eosinophils # (auto) 0.37 K/uL (0.00-0.50); Hematocrit (blood only) 37.1 % (37.0-47.0); Hemoglobin 12.5 g/dl (12.0-16.0); Immature Granulocytes # (auto) 0.02 K/uL (0.01-0.20); Immature Granulocytes % (auto) 0.3 %; Lymphocytes # (auto) 2.01 K/uL (1.20-3.40); Lymphocytes % (auto) 27.2 %; Mean Corpuscular Hgb Conc 33.7 g/dL (32.0-36.0); Mean Corpuscular Volume 86.1 fL (80.0-100.0); Mean Platelet Volume 10.1 fL (9.4-12.4); Monocytes # (auto) 0.51 K/uL (0.11-0.59); Monocytes % (auto) 6.9 %; Neutrophils # (auto) 4.43 K/uL (1.40-6.50); Neutrophils % (auto) 59.9 %; Platelet Count 200 K/uL (130-400); RDW Coefficient of Variation 12.9 % (11.5-14.5); RDW Standard Deviation 40.4 fL (36.4-46.3); Red Blood Count 4.31 M/uL (4.20-5.40); White Blood Count 7.39 K/ul (4.8-10.8)
[2023-06-22 07:56] LABS: Calcium 9.6 mg/dl (8.6-10.3); Creatinine Clr Calc Pharmacy 101.5 ml/min; Est GFR (African American) 121.2 ml/min; Est GFR (Non-African American) 104.6 ml/min; Potassium 4.3 mmol/L (3.5-5.1)
--- NOTE | 2023-06-22 08:15 | Orthopedic Progress Note ---
Date of Service June 22, 2023 Assessment & Plan (1) Foot pain: Plan: Patient seen and examined at bedside room W360-1. Today dressing is removed and wound thoroughly examined. Her wound appears stable with no signs of infection observed or reported. Wound is not on weight bearing surface and starts at previous second toe lateral incision margin and onto third toe. Suggest that all dressings applied cover all toes. A 4x4 gauze be opened and placed over area followed by kerlix and tape so that no outside manipulation is possible. Clean, dry, dressing applied as noted above. No immediate intervention planed. Will continue to follow while Patient remans in house. Thank you for allowing me to participate in the care of this Patient. (2) Diabetic foot ulcer: Admission and Anticipated Discharge Date Admission Date: June 13, 2023 Subjective Patient is a 58 year-old female seen at bedside in room 360-1 for left foot ulce r. Patient has a complex medical history significant for uncontrolled DM, CAD, Chronic pain, PVD s/p right BKA, with recent amputation of left 1st and 2nd toes presenting for diffuse pain and drainage at amputation site and shingles. Today, Review of Systems Review of Systems: All systems reviewed & are unremarkable except as noted in Subjective Physical Exam Constitutional: cooperative and comfortable Eyes: normal visual cardozo by confrontation Neck: trachea midline Respiratory: normal respiratory effort Cardiovascular: Rate/Rhythm: regular rate and regular rhythm Vessels: posterior tibial pulses present and dorsalis pedis pulses present Musculoskeletal: Extremities: + amputation noted (Right BKA, Left first and second toe amputations) Skin: normal turgor, + turgor decreased and + wound (Incision site well co- apted with exception of small 0.5 x 0.3 x 0.1cm wound) Neurologic: moves all extremities (Absent epicritic sensation) Psychiatric: Orientation: alert and oriented x 3 Results & Data Vital Signs (Past 12 Hours) Vital Signs Temp Pulse Resp BP Pulse Ox O2 Del Method 06/22/23 07:04 36.9 C 112 H 18 148/85 H 97 Room Air 06/21/23 21:41 36.9 C 86 16 183/85 H 98 Room Air (1) Foot pain Laterality: left Qualified Code(s): M79.672 - Pain in left foot (2) Diabetic foot ulcer Diabetes mellitus type: type 2 Diabetic foot ulcer location: toe Laterality: left Non-pressure ulcer stage: limited to breakdown of skin Qualified Code(s): E11.621 - Type 2 diabetes mellitus with foot ulcer; L97.521 - Non-pressure chronic ulcer of other part of left foot limited to breakdown of skin
[2023-06-22] MEDS: BACLOFEN 20 MG TAB PO SCH ×3 (08:40→21:30)
[2023-06-22] MEDS: POLYETHYLENE (MIRALAX) 17 GM PACK PO SCH ×3 (08:40→19:38)
[2023-06-22] MEDS: ACETAMINOPHEN 325 MG TAB PO SCH ×3 (08:40→21:28)
[2023-06-22] MEDS: PANTOprazole 40 MG TAB PO SCH ×2 (08:41→21:29)
[2023-06-22] MEDS: PRAZOSIN HCL 1 MG CAP PO SCH ×3 (08:41→21:30)
[2023-06-22] MEDS: DIVALPROEX EXTENDED RELEASE 500 MG TAB PO SCH ×2 (08:42→21:32)
[2023-06-22] MEDS: METOPROLOL SUCC 50MG EXT REL TAB PO SCH (08:42)
[2023-06-22] MEDS: CLOPIDOGREL BISULFATE 75 MG TAB PO SCH (08:42)
[2023-06-22] MEDS: lisinopril 10 MG TAB PO SCH (08:42)
[2023-06-22] MEDS: NICOTINE 14 MG/24 HR PATCH TD SCH (08:43)
[2023-06-22] MEDS: ENOXAPARIN INJ 40 MG/0.4 ML SYR SQ SCH (08:45)
[2023-06-22] MEDS: ACYCLOVIR SOD IV SCH ×3 (08:55→22:56)
[2023-06-22] MEDS: DEXTROSE 5% IV SCH ×3 (08:55→22:56)
[2023-06-22] MEDS: KETOROLAC TROMETHAMINE 15 MG/ML VIAL IV PRN ×3 (08:55→22:55)
[2023-06-22] MEDS: INSULIN ASPART PER UNIT CHARGE SC SCH ×4 (08:56→21:28)
[2023-06-22] MEDS: LANTUS PER UNIT CHARGE SQ SCH ×2 (08:56→21:28)
[2023-06-22] MEDS: ALPRAZolam 0.5 MG TABLET PO PRN (08:57)
[2023-06-22] MEDS: hydrOXYzine HCl 25 MG TAB PO PRN (11:58)
[2023-06-22] MEDS: ONDANSETRON INJ 2 MG/ML 2 ML VIAL IV PRN (15:31)
--- NOTE | 2023-06-22 19:54 | Billing Data ---
Date of Service June 22, 2023 Coding Level of Care Code 71352 SUB INP/OBS CARE MIN
[2023-06-22] MEDS: ZOLPIDEM TARTRATE 10 MG TAB PO PRN (21:28)
[2023-06-22] MEDS: AMITRIPTYLINE HCL 100 MG TAB PO SCH (21:31)
[2023-06-22] MEDS: rOPINIRole HCL 2 MG TABLET PO SCH (21:31)
[2023-06-23] MEDS: HYDROmorphone INJ 0.5 MG/0.5 ML SYR IV PRN ×5 (01:12→20:19)
[2023-06-23] MEDS: ONDANSETRON INJ 2 MG/ML 2 ML VIAL IV PRN ×2 (05:46→21:43)
[2023-06-23] MEDS: NICOTINE 14 MG/24 HR PATCH TD SCH (07:29)
[2023-06-23] MEDS: ACETAMINOPHEN 325 MG TAB PO SCH ×3 (07:30→20:23)
[2023-06-23] MEDS: PRAZOSIN HCL 1 MG CAP PO SCH ×3 (07:30→20:22)
[2023-06-23] MEDS: BACLOFEN 20 MG TAB PO SCH ×3 (07:31→20:20)
[2023-06-23] MEDS: CLOPIDOGREL BISULFATE 75 MG TAB PO SCH (07:31)
[2023-06-23] MEDS: DIVALPROEX EXTENDED RELEASE 500 MG TAB PO SCH ×2 (07:31→20:21)
[2023-06-23] MEDS: ENOXAPARIN INJ 40 MG/0.4 ML SYR SQ SCH (07:32)
[2023-06-23] MEDS: METOPROLOL SUCC 50MG EXT REL TAB PO SCH (07:33)
[2023-06-23] MEDS: lisinopril 10 MG TAB PO SCH (07:34)
[2023-06-23] MEDS: POLYETHYLENE (MIRALAX) 17 GM PACK PO SCH ×3 (07:34→20:22)
--- NOTE | 2023-06-23 07:56 | Hospitalist Progress Note ---
Date of Service June 23, 2023 Assessment & Plan (1) Acute herpes zoster neuropathy: (2) HTN (hypertension): (3) Diabetes mellitus type 2, uncontrolled: (4) Chronic pain syndrome: Plan Mariana Witt is a 58 year-old female with complex medical history of uncontrolled DM, CAD, Chronic pain, PVD s/p right BKA, with recent amputation of left 1st and 2nd toes presenting for diffuse pain and drainage at amputation site and shingles. Continue hydroxyzine prn for itchiness. Pt informed D/C planning will be when shingles lesions crust over and when stools are more controllable. Diarrhea - watery, nonbloody - C diff negative, suspect due to overflow diarrhea from chronic constipation, recent imaging of abdomen supports this - continue Miralax TID, s/p golytely, Disseminated Shingles - Herpetic rash with burning pain concerning for herpes zoster, now at multiple locations in several dermatomes - Keep close watch on developing rash below left eye, if worsening would have low threshold to consult ophthalmology - continue pain control with Tylenol, Baclofen, Dilaudid, - continue dilaudid 1 mg q4h - Continue IV Acyclovir - Continue hydroxyzine for intense itching - areas seem to be largely crusting over, but some spots remain open and still very bothersome Foot pain, s/p recent amputation of left 1st and 2nd toes - WBC count elevated on admission, x-ray does not show osteo - continue wound care BID - podiatry consultation appreciated; sutures removed and no intervention planned HTN, chronic - Patient's BP sig elevated this morning, w/ SBP > 200, 25 mg metoprolol given -Continue Metoprolol 50mg po qAM -Continue Lisinopril 10mg po daily Diabetes mellitus type 2, uncontrolled - Last [id number]=0.9 on 05/09/23 - continue Lantus 5u BID and ISS -Goal blood sugar 120-200 Chronic pain syndrome -Continue Elavil, Baclofen, Tylenol, Divalproex, Gabapentin -Dilaudid PRN DVT PPx: Lovenox 40 SQ QAM Admission and Anticipated Discharge Date Admission Date: June 13, 2023 Supervising Physician Co-Signing Physician Notes I personally examined the patient and verified all tanner points of history and exam, discussed case, and agree with decision making with Dr Whelan having some episodes off and on of her head pounding and feeling a little bit dizzy and seeing stars feeling a little like she is going to pass out. Lays down but it does not really get better. She had an episode this morning like that with a blood pressure about 200/100, and actually an episode almost identical and overcome in the room and her blood pressure is 197/97. Vitals noted, in general she is awake and alert pleasant appears at times in no distress and at times uncomfortable. HEENT normocephalic atraumatic mucous membranes moist. Breathing unlabored no accessory muscle use good effort. shingles lesions All appearing to crust/regress outside of the roughly T11 on the left symptomatic hypertension - no significant evidence of heart strain, cerebrovascular strain - but symptoms do appear c/w BP - no need for tx given overall stability. amlodipine, probably escalate metoprolol vs change to carvedilol for alpha justin. follow. shingles disseminated zosterIV acyclovir--> resume valtrex tomorrow. lesions do appear to be crusting over except the one on her left lower abdomenalthough I wonder if her waistband will rub the ulceration open. Still awaiting CD4/lymphocyte. HIV negative. Chronic paincontinue multimodal management. Possibly outpatient follow-up with pain management for consideration of nerve blocks, probably would benefit from outpatient NCV to quantify things better in preparation for pain management follow-up. diarrhea - almost certainly overflow from chronic constipation - prior CT from ~a month ago showed significant fecal load (and she was here slightly over a week later with n/v/d) - Lots of bowel movements with bowel prep. Continue to follow. improving. otherwise as above Subjective Mariana Witt is a 58 year-old female with complex medical history of uncontrolled DM, CAD, Chronic pain, PVD s/p right BKA, with recent amputation of left 1st and 2nd toes presenting for diffuse pain and drainage at amputation site and shingles. PatientNo questions or further complaints at this time. Review of Systems Eyes: + worsening vision (some blurry vision w in l. eye) Respiratory: no cough and no dyspnea Cardiovascular: + palpitations; no chest pain Gastrointestinal: + nausea (taking zofran) and + diarrhea/ loose stools; no vomiting (no vomiting since sun) Genitourinary: no dysuria, no urinary frequency and no urinary urgency Neurologic: + tingling (some tingling/numbness in [place] nds since yesterday) and + numbness Physical Exam Constitutional: WD/WN, vitals as above Patient has high BP w/ systolic > 200 but is not having any symptoms that suggest end-organ damage. Respiratory: normal respiratory effort, lungs clear to auscultation Cardiovascular: RRR, no murmur, no edema Gastrointestinal (Abdomen): Percussion/Palpation: + abdomen tender (mild tenderness over dermatomal area w/shingles) Musculoskeletal: Extremities: extremities normal to inspection Skin: areas of vesicles, crusted over along dermatomes Neurologic: neuropathic pain along some dermatomes Results & Data Results & Data Vital Signs (Past 12 Hours) Vital Signs Temp Pulse Resp BP BP Pulse Ox O2 Del Method 06/23/23 07:12 36.8 C 104 H 18 210/102 H 211/114 H 98 Room Air 06/23/23 06:11 98 H 165/83 H 96 Room Air 06/23/23 05:58 110 H 193/84 H 06/22/23 21:58 36.9 C 82 16 137/85 99 Room Air
[2023-06-23] MEDS: KETOROLAC TROMETHAMINE 15 MG/ML VIAL IV PRN ×2 (08:09→14:35)
[2023-06-23] MEDS: DEXTROSE 5% IV SCH ×2 (08:10→16:34)
[2023-06-23] MEDS: ACYCLOVIR SOD IV SCH ×2 (08:10→16:34)
[2023-06-23 08:35] LABS: Hematocrit (blood only) 40.4 % (37.0-47.0); Hemoglobin 13.4 g/dl (12.0-16.0); Mean Corpuscular Hemoglobin 29.1 pg (25.0-34.0); Mean Corpuscular Hgb Conc 33.2 g/dL (32.0-36.0); Mean Corpuscular Volume 87.6 fL (80.0-100.0); Mean Platelet Volume 10.2 fL (9.4-12.4); Platelet Count 182 K/uL (130-400); RDW Coefficient of Variation 13.1 % (11.5-14.5); RDW Standard Deviation 41.5 fL (36.4-46.3); Red Blood Count 4.61 M/uL (4.20-5.40); White Blood Count 7.91 K/ul (4.8-10.8)
[2023-06-23 08:45] LABS: Creatinine Clr Calc Pharmacy 79.9 ml/min; Est GFR (African American) 112.1 ml/min; Est GFR (Non-African American) 96.7 ml/min; Potassium 4.7 mmol/L (3.5-5.1)
[2023-06-23] MEDS ORDERED: ASPIRIN 81 MG ECTAB PO SCH (09:30)
[2023-06-23] MEDS ORDERED: METOPROLOL TARTRATE 25 MG TAB PO ONE (09:30)
[2023-06-23] MEDS: INSULIN ASPART PER UNIT CHARGE SC SCH ×4 (09:40→20:18)
[2023-06-23] MEDS: LANTUS PER UNIT CHARGE SQ SCH ×2 (09:40→20:19)
[2023-06-23 09:53] LABS: Basophils # (auto) 0.06 K/uL (0.00-0.20); Basophils % (auto) 0.8 %; Eosinophils # (auto) 0.39 K/uL (0.00-0.50); Eosinophils % (auto) 4.9 %; Immature Granulocytes # (auto) 0.07 K/uL (0.01-0.20); Immature Granulocytes % (auto) 0.9 %; Lymphocytes # (auto) 2.12 K/uL (1.20-3.40); Lymphocytes % (auto) 26.5 %; Monocytes # (auto) 0.52 K/uL (0.11-0.59); Monocytes % (auto) 6.5 %; Neutrophils # (auto) 4.84 K/uL (1.40-6.50); Neutrophils % (auto) 60.4 %
[2023-06-23] MEDS: PANTOprazole 40 MG TAB PO SCH ×2 (10:20→20:21)
[2023-06-23] MEDS ORDERED: amLODIPine BESYLATE 5 MG TAB PO ONE (15:56)
--- NOTE | 2023-06-23 19:16 | Billing Data ---
Date of Service June 23, 2023 Coding Level of Care Code 97760 SUB INP/OBS CARE MIN
--- NOTE | 2023-06-23 19:18 | Billing Data ---
Date of Service June 23, 2023 Coding Level of Care Code 02147 SUB INP/OBS CARE MIN
[2023-06-23] MEDS: ZOLPIDEM TARTRATE 10 MG TAB PO PRN (20:20)
[2023-06-23] MEDS: AMITRIPTYLINE HCL 100 MG TAB PO SCH (20:21)
[2023-06-23] MEDS: rOPINIRole HCL 2 MG TABLET PO SCH (20:21)
[2023-06-23] MEDS: amLODIPine BESYLATE 5 MG TAB PO SCH (20:24)
[2023-06-24] MEDS: DEXTROSE 5% IV SCH ×2 (00:10→09:21)
[2023-06-24] MEDS: ACYCLOVIR SOD IV SCH ×2 (00:10→09:21)
[2023-06-24] MEDS: HYDROmorphone INJ 0.5 MG/0.5 ML SYR IV PRN ×6 (02:23→22:32)
[2023-06-24] MEDS: ONDANSETRON INJ 2 MG/ML 2 ML VIAL IV PRN (04:05)
[2023-06-24] MEDS: ALPRAZolam 0.5 MG TABLET PO PRN (06:16)
--- NOTE | 2023-06-24 07:28 | Hospitalist Progress Note ---
Date of Service June 24, 2023 Assessment & Plan (1) Acute herpes zoster neuropathy: (2) HTN (hypertension): (3) Diabetes mellitus type 2, uncontrolled: (4) Chronic pain syndrome: Plan Mariana Witt is a 58 year-old female with complex medical history of uncontrolled DM, CAD, Chronic pain, PVD s/p right BKA, with recent amputation of left 1st and 2nd toes presenting for diffuse pain and drainage at amputation site and shingles. Continue hydroxyzine and diphenhydramine prn for itchiness. Pt informed D/C planning will be when shingles lesions crust over and when stools are more controllable. Diarrhea/Nausea - watery, nonbloody - C diff negative, suspect due to overflow diarrhea from chronic constipation, recent imaging of abdomen supports this - continue Miralax TID, s/p golytely, - discontinued Zofran, kept compazine order active (pt preferred) at Q6h Disseminated Shingles - Herpetic rash with burning pain concerning for herpes zoster, now at multiple locations in several dermatomes - Keep close watch on developing rash below left eye, if worsening would have low threshold to consult ophthalmology - continue pain control with Tylenol, Baclofen, Dilaudid, - continue dilaudid 1 mg q4h - Discontinue IV Acyclovir, Start PO valacyclovir, 1000 mg, TID for 7 days - Continue hydroxyzine for intense itching - areas seem to be largely crusting over, but some spots remain open and still very bothersome Foot pain, s/p recent amputation of left 1st and 2nd toes - WBC count elevated on admission, x-ray does not show osteo - continue wound care BID - podiatry consultation appreciated; sutures removed and no intervention planned HTN, chronic - Patient's BP sig elevated this morning, w/ SBP > 200, 25 mg metoprolol given -Continue Metoprolol 50mg po qAM -Continue Lisinopril 20 mg po daily -Continue amlodipine, 5 mg, BID, PO Diabetes mellitus type 2, uncontrolled - Last IrbG0M=4.9 on 05/09/23 - continue Lantus 5u BID and ISS -Goal blood sugar 120-200 Chronic pain syndrome -Continue Elavil, Baclofen, Tylenol, Divalproex, Gabapentin -Dilaudid PRN DVT PPx: Lovenox 40 SQ QAM Admission and Anticipated Discharge Date Admission Date: June 13, 2023 Supervising Physician Co-Signing Physician Notes I personally examined the patient and verified all tanner points of history and exam, discussed case, and agree with decision making with Dr Whelan head throbbing/vision episodes improved. nausea/hard time swallowing ("feels like when it happened before and dr hamilton started me on something that helped") and also ongoing diarrhea Vitals noted, in general she is awake and alert pleasant appears at times in no distress and at times uncomfortable. HEENT normocephalic atraumatic mucous membranes moist. Breathing unlabored no accessory muscle use good effort. shingles lesions All appearing to crust/regress outside of the roughly T11 on the left whcih is starting to crust but seems more irritated, not infected. abd soft but more distended than before no guarding/rebound. symptomatic hypertension - no significant evidence of heart strain, cerebrovascular strain - but symptoms do appear c/w BP - no need for tx given overall stability. added amlodipine, BP improved, sx seem to be improving. probably titrate lisinopril further. echo unchanged shingles disseminated zosterIV acyclovir--> resume valtrex. lesions do appear to be crusting over. Still awaiting CD4/lymphocyte. HIV negative. Chronic paincontinue multimodal management. Possibly outpatient follow-up with pain management for consideration of nerve blocks, probably would benefit from outpatient NCV to quantify things better in preparation for pain management follow-up. diarrhea - almost certainly overflow from chronic constipation - prior CT from ~a month ago showed significant fecal load (and she was here slightly over a week later with n/v/d) - Lots of bowel movements with bowel prep. since more distention/new nausea and ongoing diarrhea - KUB - ?more stool, ?needs additional bowel prep vs other pathology difficulty swallowing - ?etiology - d/w dr hamilton and reviewed old notes - ?reglan may have helped (would make sense since the symptom seems to be coupled to worse nausea) otherwise as above Jagdish Witt is a 58 year-old female with complex medical history of uncontrolled DM, CAD, Chronic pain, PVD s/p right BKA, with recent amputation of left 1st and 2nd toes presenting for diffuse pain and drainage at amputation site and shingles. PatientNo questions or further complaints at this time. Review of Systems Review of Systems: As per above. Constitutional: + fatigue (extremely tired last few days ) patient mentions that every time she eats she gets liquid that comes out from behind ear (saliva?) that runs down chin Eyes: + worsening vision (some blurry vision w edday in l. eye, improving) Respiratory: no cough and no dyspnea Cardiovascular: + palpitations; no chest pain Gastrointestinal: + nausea (taking zofran (pt feels compaz ine works better)) and + diarrhea/loose stools; no vomiting (no vomiting since sun) Genitourinary: no dysuria, no urinary frequency and no urinary urgency Neurologic: + tingling (some tingling/numbness in [place] nds at baseline) and + numbness; no dizziness and no headache(s) Physical Exam Constitutional: WD/WN, vitals as above Respiratory: normal respiratory effort, lungs clear to auscultation Cardiovascular: RRR, no murmur, no edema Gastrointestinal (Abdomen): Percussion/Palpation: + abdomen tender (mild tenderness over dermatomal area w/shingles) Musculoskeletal: Extremities: extremities normal to inspection Results & Data Results & Data Vital Signs (Past 12 Hours) Vital Signs Temp Pulse Resp BP Pulse Ox O2 Del Method 06/23/23 20:27 37.0 C 85 16 162/79 H 94 Room Air Resident Activity Tracking Resident Involvement: Resident Care Provided Care Provided: Adult Hospital Medicine
[2023-06-24 08:33] LABS: Basophils # (auto) 0.05 K/uL (0.00-0.20); Basophils % (auto) 0.6 %; Eosinophils # (auto) 0.51 K/uL (0.00-0.50); Eosinophils % (auto) 5.9 %; Hematocrit (blood only) 36.5 % (37.0-47.0); Hemoglobin 12.1 g/dl (12.0-16.0); Immature Granulocytes # (auto) 0.02 K/uL (0.01-0.20); Immature Granulocytes % (auto) 0.2 %; Lymphocytes # (auto) 2.69 K/uL (1.20-3.40); Lymphocytes % (auto) 31.1 %; Mean Corpuscular Hemoglobin 29.1 pg (25.0-34.0); Mean Corpuscular Hgb Conc 33.2 g/dL (32.0-36.0); Mean Corpuscular Volume 87.7 fL (80.0-100.0); Mean Platelet Volume 10.1 fL (9.4-12.4); Monocytes # (auto) 0.57 K/uL (0.11-0.59); Monocytes % (auto) 6.6 %; Neutrophils % (auto) 55.6 %; Platelet Count 175 K/uL (130-400); RDW Standard Deviation 41.6 fL (36.4-46.3); Red Blood Count 4.16 M/uL (4.20-5.40); White Blood Count 8.64 K/ul (4.8-10.8)
[2023-06-24 08:48] LABS: BUN Creatinine Ratio 40.7 (10-20); Creatinine Clr Calc Pharmacy 97.7 ml/min; Est GFR (African American) 119.7 ml/min; Est GFR (Non-African American) 103.3 ml/min; Potassium 4.7 mmol/L (3.5-5.1)
[2023-06-24] MEDS: CLOPIDOGREL BISULFATE 75 MG TAB PO SCH (09:23)
[2023-06-24] MEDS: NICOTINE 14 MG/24 HR PATCH TD SCH (09:23)
[2023-06-24] MEDS: DIVALPROEX EXTENDED RELEASE 500 MG TAB PO SCH ×2 (09:23→22:41)
[2023-06-24] MEDS: ACETAMINOPHEN 325 MG TAB PO SCH ×3 (09:23→22:44)
[2023-06-24] MEDS: PRAZOSIN HCL 1 MG CAP PO SCH ×3 (09:23→22:40)
[2023-06-24] MEDS: lisinopril 10 MG TAB PO SCH (09:23)
[2023-06-24] MEDS: amLODIPine BESYLATE 5 MG TAB PO SCH ×2 (09:24→22:46)
[2023-06-24] MEDS: PANTOprazole 40 MG TAB PO SCH ×2 (09:24→22:38)
[2023-06-24] MEDS: BACLOFEN 20 MG TAB PO SCH ×3 (09:24→22:41)
[2023-06-24] MEDS: POLYETHYLENE (MIRALAX) 17 GM PACK PO SCH ×3 (09:26→22:42)
[2023-06-24] MEDS: METOPROLOL SUCC 50MG EXT REL TAB PO SCH (09:26)
[2023-06-24] MEDS: ENOXAPARIN INJ 40 MG/0.4 ML SYR SQ SCH (09:26)
[2023-06-24] MEDS: INSULIN ASPART PER UNIT CHARGE SC SCH ×4 (09:27→23:22)
[2023-06-24] MEDS: LANTUS PER UNIT CHARGE SQ SCH ×2 (09:35→23:22)
--- NOTE | 2023-06-24 13:19 | XCELERA ---
[id number] [id number]
[2023-06-24] MEDS: hydrOXYzine HCl 25 MG TAB PO PRN (15:20)
[2023-06-24] MEDS ORDERED: METOCLOPRAMIDE HCL 5 MG TABLET PO PRN (16:31)
[2023-06-24] MEDS ORDERED: METOCLOPRAMIDE HCL 5 MG TABLET PO ONE (16:32)
--- NOTE | 2023-06-24 18:23 | Billing Data ---
Date of Service June 24, 2023 Coding Level of Care Code 90369 SUB INP/OBS CARE MIN
--- NOTE | 2023-06-24 18:39 | XRay Report ---
KUB HISTORY: distention, diarrhea, ?fecal load causing overflow COMPARISON: KUB 04/27/2022. FINDINGS: The bowel gas pattern is unremarkable. There are no dilated loops of small bowel to suggest an obstruction. No renal calculi. No ureteral calculi. Calcifications in the deep pelvis likely rep resent phleboliths. No pneumoperitoneum or pneumatosis. Prior cholecystectomy. Lumbar spinal fusion h ardware is again noted. Moderate fecal retention is similar to the prior study. IMPRESSION: 1. Nonobstructive bowel gas pattern. 2. Moderate fecal retention again noted. ACT 112: Negative or not required by law. Electronically signed by: Ernst Murray M.D. 06/24/2023 6:37 PM
--- NOTE | 2023-06-24 19:55 | Electrocardiogram Report ---
Test Reason : Blood Pressure : / mmHG Vent. Rate : 099 BPM Atrial Rate : 099 BPM P-R Int : 170 ms QRS Dur : 096 ms QT Int : 350 ms P-R-T Axes : 063 057 075 degrees QTc Int : 449 ms Normal sinus rhythm Anterior infarct , age undetermined Abnormal ECG When compared with ECG of 18-MAY-2023 09:37, Anterior infarct is now Present Confirmed by Aakash Ruff ([id number]) on 06/24/2023 7:54:53 PM Referred By: Vince Vernon Confirmed By:Aakash Ruff
--- NOTE | 2023-06-24 20:00 | Electrocardiogram Report ---
Test Reason : Blood Pressure : / mmHG Vent. Rate : 082 BPM Atrial Rate : 082 BPM P-R Int : 186 ms QRS Dur : 096 ms QT Int : 358 ms P-R-T Axes : 060 062 057 degrees QTc Int : 418 ms Normal sinus rhythm Normal ECG When compared with ECG of 23-JUN-2023 06:07, (unconfirmed) Criteria for Anterior infarct are no longer Present Confirmed by Aakash Ruff ([id number]) on 06/24/2023 8:00:32 PM Referred By: Vince Vernon Confirmed By:Aakash Ruff
[2023-06-24] MEDS: valACYclovir HCL 500 MG TABLET PO SCH (22:38)
[2023-06-24] MEDS: rOPINIRole HCL 2 MG TABLET PO SCH (22:42)
[2023-06-24] MEDS: AMITRIPTYLINE HCL 100 MG TAB PO SCH (22:47)
[2023-06-24] MEDS: ZOLPIDEM TARTRATE 10 MG TAB PO PRN (23:56)
[2023-06-25] MEDS: HYDROmorphone INJ 0.5 MG/0.5 ML SYR IV PRN ×5 (03:22→21:44)
[2023-06-25] MEDS: ALPRAZolam 0.5 MG TABLET PO PRN ×2 (06:41→12:59)
--- NOTE | 2023-06-25 07:10 | Hospitalist Progress Note ---
Date of Service June 25, 2023 Assessment & Plan (1) Acute herpes zoster neuropathy: (2) HTN (hypertension): (3) Diabetes mellitus type 2, uncontrolled: (4) Chronic pain syndrome: Plan Mariana Witt is a 58 year-old female with complex medical history of uncontrolled DM, CAD, Chronic pain, PVD s/p right BKA, with recent amputation of left 1st and 2nd toes presenting for diffuse pain and drainage at amputation site and shingles. Diarrhea/Nausea - watery, nonbloody - likely overflow from chronic constipation, recent imaging of abdomen supports this - C diff negative, - refused Miralax TID, s/p golytely, - Relistor 5 mg given once 06/25 - Compazine order active (pt preferred) at Q6h Disseminated Shingles - Herpetic rash with burning pain concerning for herpes zoster, now at multiple locations in several dermatomes - continue pain control with Tylenol, Baclofen, Dilaudid, - Discontinue IV Acyclovir, Start PO valacyclovir, 1000 mg, TID for 7 days (started on 06/24) - Continue hydroxyzine for intense itching - areas seem to be largely crusting over, but some spots remain open and still very bothersome -Still awaiting CD4/lymphocyte. HIV negative. Foot pain, s/p recent amputation of left 1st and 2nd toes - WBC count elevated on admission, x-ray does not show osteo - continue wound care BID - podiatry consultation appreciated; sutures removed and no intervention planned HTN, chronic -Continue Metoprolol 50mg po qAM -Continue Lisinopril 20 mg po daily -added amlodipine, 5 mg, BID, PO due to consistent high readings. Diabetes mellitus type 2, uncontrolled - Last [id number]=8.9 on 05/09/23 - continue Lantus 5u BID and ISS -Goal blood sugar 120-200 Chronic pain syndrome -Continue Elavil, Baclofen, Tylenol, Divalproex, Gabapentin -Dilaudid PRN -consider pain management for consideration of nerve block and NVC Code: Full code DVT PPx: Lovenox 40 SQ QAM Diet: DM 2 Dispo: MEd /surg Admission and Anticipated Discharge Date Admission Date: June 13, 2023 Supervising Physician Co-Signing Physician Notes Resident Physician Supervision Note: I independently interviewed and examined the patient and verified the tanner history and physical, reviewed labs and image studies and agree with resident findings and care plan. Jagdish Witt is a 58 year-old female with complex medical history of uncontrolled DM, CAD, Chronic pain, PVD s/p right BKA, with recent amputation of left 1st and 2nd toes presenting for diffuse pain and drainage at amputation site and shingles. PAtient evaluated today. Some crust over the lesion except for one, patient refer bleeding before from this. No new concern. Review of Systems Review of Systems: As per above. Physical Exam Constitutional: WD/WN, vitals as above Respiratory: normal respiratory effort, lungs clear to auscultation Cardiovascular: RRR, no murmur, no edema Gastrointestinal (Abdomen): Percussion/Palpation: + abdomen tender (mild tenderness over dermatomal area w/shingles) Musculoskeletal: Extremities: extremities normal to inspection Results & Data Results & Data Vital Signs (Past 12 Hours) Vital Signs Temp Pulse Resp BP Pulse Ox O2 Del Method 06/24/23 23:57 133/72 06/24/23 23:01 36.6 C 94 H 16 205/93 H 100 Room Air 06/24/23 20:00 Room Air Resident Activity Tracking Resident Involvement: Resident Care Provided Care Provided: Adult Hospital Medicine
[2023-06-25 07:20] LABS: Basophils # (auto) 0.08 K/uL (0.00-0.20); Basophils % (auto) 0.8 %; Eosinophils # (auto) 0.55 K/uL (0.00-0.50); Eosinophils % (auto) 5.5 %; Hematocrit (blood only) 37.5 % (37.0-47.0); Hemoglobin 12.2 g/dl (12.0-16.0); Immature Granulocytes # (auto) 0.03 K/uL (0.01-0.20); Immature Granulocytes % (auto) 0.3 %; Lymphocytes # (auto) 3.26 K/uL (1.20-3.40); Lymphocytes % (auto) 32.3 %; Mean Corpuscular Hemoglobin 28.6 pg (25.0-34.0); Mean Corpuscular Hgb Conc 32.5 g/dL (32.0-36.0); Mean Platelet Volume 9.8 fL (9.4-12.4); Monocytes # (auto) 0.97 K/uL (0.11-0.59); Monocytes % (auto) 9.6 %; Neutrophils # (auto) 5.19 K/uL (1.40-6.50); Neutrophils % (auto) 51.5 %; Platelet Count 194 K/uL (130-400); RDW Coefficient of Variation 13.2 % (11.5-14.5); RDW Standard Deviation 42.5 fL (36.4-46.3); Red Blood Count 4.26 M/uL (4.20-5.40); White Blood Count 10.08 K/ul (4.8-10.8)
[2023-06-25 07:21] LABS: BUN Creatinine Ratio 29.5 (10-20); Calcium 9.6 mg/dl (8.6-10.3); Creatinine Clr Calc Pharmacy 86.5 ml/min; Est GFR (Non-African American) 99.2 ml/min; Potassium 4.4 mmol/L (3.5-5.1)
[2023-06-25] MEDS: INSULIN ASPART PER UNIT CHARGE SC SCH ×4 (09:42→22:11)
[2023-06-25] MEDS: LANTUS PER UNIT CHARGE SQ SCH ×2 (09:43→22:11)
[2023-06-25] MEDS: BACLOFEN 20 MG TAB PO SCH ×3 (09:57→21:54)
[2023-06-25] MEDS: METOPROLOL SUCC 50MG EXT REL TAB PO SCH (09:57)
[2023-06-25] MEDS: amLODIPine BESYLATE 5 MG TAB PO SCH ×2 (09:57→22:10)
[2023-06-25] MEDS: ACETAMINOPHEN 325 MG TAB PO SCH ×3 (09:57→21:51)
[2023-06-25] MEDS: DIVALPROEX EXTENDED RELEASE 500 MG TAB PO SCH ×2 (09:57→21:51)
[2023-06-25] MEDS: CLOPIDOGREL BISULFATE 75 MG TAB PO SCH (09:57)
[2023-06-25] MEDS: PRAZOSIN HCL 1 MG CAP PO SCH ×3 (09:58→21:52)
[2023-06-25] MEDS: PANTOprazole 40 MG TAB PO SCH ×2 (09:58→21:53)
[2023-06-25] MEDS: valACYclovir HCL 500 MG TABLET PO SCH ×3 (09:58→21:53)
[2023-06-25] MEDS: lisinopril 20 MG TAB PO SCH (09:58)
[2023-06-25] MEDS: POLYETHYLENE (MIRALAX) 17 GM PACK PO SCH ×3 (09:59→21:54)
[2023-06-25] MEDS: NICOTINE 14 MG/24 HR PATCH TD SCH (09:59)
[2023-06-25] MEDS: ENOXAPARIN INJ 40 MG/0.4 ML SYR SQ SCH (09:59)
[2023-06-25] MEDS ORDERED: METHYLNALTREXONE BROMIDE 12 MG/0.6 ML VIAL SQ ONE (13:45)
[2023-06-25 17:03] LABS: LSP % Cells Analyzed CD4 56 % (30-61); LSP % of Cells Analyzed CD8 37 % (12-42); LSP Absolute Count CD8 607 cells/uL (180-1170); LSP Absolute Ct CD4 906 cells/uL (490-1740); LSP CD4/CD8 Ratio 1.49 (0.86-5.00); LSP Lymphocytes Absolute 1622 cells/uL (850-3900); Lymphocyte Subset Pan Comment DNR
[2023-06-25] MEDS: rOPINIRole HCL 2 MG TABLET PO SCH (21:51)
[2023-06-25] MEDS: ZOLPIDEM TARTRATE 10 MG TAB PO PRN (22:09)
[2023-06-25] MEDS: AMITRIPTYLINE HCL 100 MG TAB PO SCH (22:10)
[2023-06-26] MEDS: HYDROmorphone INJ 0.5 MG/0.5 ML SYR IV PRN ×4 (04:37→16:49)
--- NOTE | 2023-06-26 06:59 | Hospitalist Progress Note ---
Date of Service June 26, 2023 Assessment & Plan (1) Acute herpes zoster neuropathy: (2) HTN (hypertension): (3) Diabetes mellitus type 2, uncontrolled: (4) Chronic pain syndrome: Plan Mariana Witt is a 58 year-old female with complex medical history of uncontrolled DM, CAD, Chronic pain, PVD s/p right BKA, with recent amputation of left 1st and 2nd toes presenting for diffuse pain and drainage at amputation site and shingles. Diarrhea/Nausea - watery, nonbloody - likely overflow from chronic constipation, recent imaging of abdomen supports this - C diff negative, - refused Miralax TID, s/p golytely, - Relistor 5 mg given once 06/25 - Compazine order active (pt preferred) at Q6h KUB today: no evidence of constipation. Disseminated Shingles - Herpetic rash with burning pain concerning for herpes zoster, now at multiple locations in several dermatomes - continue pain control with Tylenol, Baclofen, Dilaudid, - Discontinue IV Acyclovir, Start PO valacyclovir, 1000 mg, TID for 7 days (started on 06/24) - Continue hydroxyzine for intense itching -CD4/lymphocyte: WNL. HIV negative. - areas seem to be largely crusting over, but some spots remain open and still very bothersome Foot pain, s/p recent amputation of left 1st and 2nd toes - WBC count elevated on admission, x-ray does not show osteo - continue wound care BID - podiatry consultation appreciated; sutures removed and no intervention planned HTN, chronic -Continue Metoprolol 50mg po qAM -Continue Lisinopril 20 mg po daily -added amlodipine, 5 mg, BID, PO due to consistent high readings. Diabetes mellitus type 2, uncontrolled - Last [id number]=1.9 on 05/09/23 - continue Lantus 5u BID and ISS -Goal blood sugar 120-200 Chronic pain syndrome -Continue Elavil, Baclofen, Tylenol, Divalproex, Gabapentin -Dilaudid PRN -consider pain management for consideration of nerve block and NVC Code: Full code DVT PPx: Lovenox 40 SQ QAM Diet: DM 2 Dispo: MEd /surg Admission and Anticipated Discharge Date Admission Date: June 13, 2023 Supervising Physician Co-Signing Physician Notes Resident Physician Supervision Note: I independently interviewed and examined the patient and verified the tanner history and physical, reviewed labs and image studies and agree with resident findings and care plan. Jagdish Witt is a 58 year-old female with complex medical history of uncontrolled DM, CAD, Chronic pain, PVD s/p right BKA, with recent amputation of left 1st and 2nd toes presenting for diffuse pain and drainage at amputation site and shingles. PAtient evaluated today. Some crust over the lesion except for one, patient refer bleeding before from this. No new concern. Review of Systems Review of Systems: As per above. Physical Exam Constitutional: WD/WN, vitals as above Respiratory: normal respiratory effort, lungs clear to auscultation Cardiovascular: RRR, no murmur, no edema Gastrointestinal (Abdomen): Percussion/Palpation: + abdomen tender (mild tenderness over dermatomal area w/shingles) Musculoskeletal: Extremities: extremities normal to inspection Results & Data Results & Data Vital Signs (Past 12 Hours) Vital Signs Temp Pulse Resp BP Pulse Ox O2 Del Method 06/25/23 20:39 36.8 C 91 H 18 146/95 H 98 Room Air 06/25/23 19:54 Room Air Resident Activity Tracking Resident Involvement: Resident Care Provided Care Provided: Adult Hospital Medicine
[2023-06-26] MEDS: amLODIPine BESYLATE 5 MG TAB PO SCH (08:36)
[2023-06-26] MEDS: ACETAMINOPHEN 325 MG TAB PO SCH ×2 (08:38→15:33)
[2023-06-26] MEDS: ENOXAPARIN INJ 40 MG/0.4 ML SYR SQ SCH (08:39)
[2023-06-26] MEDS: lisinopril 20 MG TAB PO SCH (08:40)
[2023-06-26] MEDS: DIVALPROEX EXTENDED RELEASE 500 MG TAB PO SCH (08:40)
[2023-06-26] MEDS: CLOPIDOGREL BISULFATE 75 MG TAB PO SCH (08:41)
[2023-06-26] MEDS: BACLOFEN 20 MG TAB PO SCH ×2 (08:42→15:33)
[2023-06-26] MEDS: METOPROLOL SUCC 50MG EXT REL TAB PO SCH (08:42)
[2023-06-26] MEDS: PANTOprazole 40 MG TAB PO SCH (08:43)
[2023-06-26] MEDS: NICOTINE 14 MG/24 HR PATCH TD SCH (08:43)
[2023-06-26] MEDS: POLYETHYLENE (MIRALAX) 17 GM PACK PO SCH ×2 (08:43→15:34)
[2023-06-26] MEDS: PRAZOSIN HCL 1 MG CAP PO SCH ×2 (08:44→15:34)
[2023-06-26] MEDS: valACYclovir HCL 500 MG TABLET PO SCH ×2 (08:44→15:35)
[2023-06-26] MEDS: LANTUS PER UNIT CHARGE SQ SCH (09:04)
[2023-06-26] MEDS: INSULIN ASPART PER UNIT CHARGE SC SCH ×3 (09:04→18:09)
[2023-06-26 10:27] LABS: Basophils # (auto) 0.06 K/uL (0.00-0.20); Basophils % (auto) 0.5 %; Eosinophils # (auto) 0.39 K/uL (0.00-0.50); Eosinophils % (auto) 3.6 %; Hematocrit (blood only) 37.5 % (37.0-47.0); Hemoglobin 12.2 g/dl (12.0-16.0); Immature Granulocytes # (auto) 0.03 K/uL (0.01-0.20); Immature Granulocytes % (auto) 0.3 %; Lymphocytes # (auto) 2.02 K/uL (1.20-3.40); Lymphocytes % (auto) 18.5 %; Mean Corpuscular Hemoglobin 28.6 pg (25.0-34.0); Mean Corpuscular Hgb Conc 32.5 g/dL (32.0-36.0); Monocytes # (auto) 0.85 K/uL (0.11-0.59); Monocytes % (auto) 7.8 %; Neutrophils # (auto) 7.57 K/uL (1.40-6.50); Neutrophils % (auto) 69.3 %; Platelet Count 176 K/uL (130-400); RDW Coefficient of Variation 13.2 % (11.5-14.5); Red Blood Count 4.26 M/uL (4.20-5.40); White Blood Count 10.92 K/ul (4.8-10.8)
[2023-06-26 10:48] LABS: BUN Creatinine Ratio 27.7 (10-20); Calcium 9.9 mg/dl (8.6-10.3); Creatinine Clr Calc Pharmacy 81.2 ml/min; Est GFR (African American) 112.6 ml/min; Est GFR (Non-African American) 97.2 ml/min; Potassium 4.5 mmol/L (3.5-5.1)
--- NOTE | 2023-06-26 15:21 | XRay Report ---
KUB HISTORY: Acute generalized abdominal pain with constipation constipation COMPARISON: KUB 06/24/2023 FINDINGS: Nonobstructive bowel gas pattern. No radiographic evidence of constipation. Debris-filled a nd distended stomach. Right abdominal surgical clips. Lumbosacral fusion hardware. No renal calculi. No ureteral calculi. No pneumoperitoneum or pneumatosis. No fracture. IMPRESSION: 1. Nonobstructive bowel gas pattern. 2. No radiographic evidence of constipation. 2. Distended stomach. ACT 112: Negative or not required by law. The above report was generated using voice recognition software. It may contain grammatical, syntax o r spelling errors. Electronically signed by: Puneet Howard M.D. 06/26/2023 3:20 PM
--- NOTE | 2023-06-26 18:08 | Discharge Summary ---
Date of Service June 26, 2023 Admission HPI Per Admitting Provider Mariana Witt is a 58yo female with complex medical history to include DM, CAD, Chronic pain, PVD s/p right BKA, amputation of left 1st and 2nd toes presenting with diffuse pain at amputation site as well as right flank. Patient was recently admitted to [facility] from 05/18/23 - 05/28/23 after presenting with right groin pain and left 2nd toe pain as well as nausea and PO intolerance. Patient had an MRI performed on 05/22/23 which revealed osteomyelitis. She had an amputation of the left 2nd toe performed by Dr. Noriega on 05/24/23. She was treated with Daptomycin. Patient was ultimately discharged home in stable condition. Medication on discharge include Amitriptyline 50mg po qHS, Baclofen 20mg po BID and Divalproex 500mg po BID. Patient returns to the ER with multiple complaints. Two days ago she noted an area of redness at the amputation site of the left 2nd toe. Also with yellow drainage. The area started bleeding today. She has significant pain at the amputation site as well as pain in the anterior leg. Patient also reports several days of localized burning pain in the right T8 dermatome with eruption of a blistering rash today. Also with persistent nausea with daily non-bloody/non-bilious vomiting and PO intolerance. Patient reports feeling weak and tired, unable to ambulate due to generalized weakness and pain. In the ER she is afebrile, hypertensive otherwise HD stable Admission Exam Per Admitting Provider General: patient tearful, NAD, AA&O x 4 Skin: erythematous blistering rash right T8 dermatome, tenderness to palpation HEENT: NC/AT, PERRL, EOMI, anicteric sclera, conjunctiva without injection, external ear normal to inspection and nontender, nares patent, moist mucus membranes, dentition intact, no oropharyngeal lesions, neck supple, trachea midline, no LAD, no thyromegaly, no JVD Heart: +S1/S2, regular, no m/r/g Lungs: equal air entry bilaterally, no rales/rhonchi/wheezes Abd: +BS, soft, NT/ND, no masses/organomegaly/ascites Ext: s/p right BKA, s/p amputation of left 1st and 2nd toes. Sutures in place with small area of erythema with serous discharge Neuro: nonfocal, patient AA&O x 4, speech intact, no facial droop, moving all extremities on command with equal strength 5/5 Principal Diagnosis Disseminated Shingles Discharge Exam Constitutional: WD/WN, vitals as above Respiratory: normal respiratory effort, lungs clear to auscultation Cardiovascular: RRR, no murmur, no edema Gastrointestinal (Abdomen): Percussion/Palpation: + abdomen tender (mild tenderness over dermatomal area w/shingles) Musculoskeletal: Extremities: extremities normal to inspection Discharge Data Allergies Allergy/AdvReac Type Severity Reaction Status Date / Time morphine Allergy Severe blisters Verified 05/18/23 11:52 in mouth Sulfa (Sulfonamide Allergy Severe rash/swelli Verified 05/18/23 11:52 Antibiotics) ng amoxicillin [From Augmentin] Allergy Intermediate itching/power Verified 05/18/23 11:52 h ceftriaxone [From Rocephin] Allergy Intermediate Hives Verified 05/18/23 11:52 clavulanic acid Allergy Intermediate itching/power Verified 05/18/23 11:52 [From Augmentin] h erythromycin base Allergy Intermediate Hives Verified 05/18/23 11:52 iron [From Venofer] Allergy Intermediate Hypertensio Verified 05/18/23 11:52 n vancomycin Allergy Intermediate YULIYA Verified 05/18/23 11:52 SYNDROME---CAN TAKE IF VERY SLOW DRIP. gabapentin Allergy Nausea Verified 06/17/23 07:28 adhesive AdvReac Intermediate DERMABOND Verified 05/18/23 11:52 excoriates skin Consultations 06/13/23 22:10 ED Decision to Admit Stat 06/13/23 23:44 Consult Podiatry Routine Hospital Course (1) Acute herpes zoster neuropathy: (2) HTN (hypertension): (3) Diabetes mellitus type 2, uncontrolled: (4) Chronic pain syndrome: Fracisco Witt is a 58 year-old female with complex medical history of uncontrolled DM, CAD, Chronic pain, PVD s/p right BKA, with recent amputation of left 1st and 2nd toes presenting for diffuse pain and drainage at amputation site and shingles. Disseminated Shingles - Patient admitted due to burning pain concerning for herpes zoster - Lesions now are crusting over. - Treated with pain management and IV Acyclovir, PO valacyclovir, 1000 mg, -Patient was discharged with Valacyclovir prescription for a 4 days, (total of 7 days) Diarrhea/Nausea - watery, nonbloody - likely overflow from chronic constipation, confirmed with imaged - C diff negative - refused Miralax TID, s/p golytely, - Relistor 5 mg given once 06/25 -Resolved after Relistor 5 mg given once Foot pain, s/p recent amputation of left 1st and 2nd toes - WBC count elevated on admission, x-ray does did not show osteo -Podiatry was consulted, no intervention planned - Continue wound care HTN, chronic -Continue Metoprolol 50mg po qAM -Continue Lisinopril 20 mg po daily Diabetes mellitus type 2, uncontrolled - Last [id number]=9.9 on 05/09/23 -Goal blood sugar 120-200 -Continue home insulin regimen Chronic pain syndrome -Continue Elavil, Baclofen, Tylenol, Divalproex, Gabapentin Total Time Total Time Spent Total Time Spent (In Minutes): see attending attestation Discharge Plan Discharge Items Patient Disposition: Home - Self-Care Reason For Visit: LEFT FOOT PAIN Discharge Diagnosis: Disseminated Shingles Activity: Resume your previous activity Non-emergency contact: Primary Care Provider Call non-emergency contact if: you have any medication questions Follow-up/Referrals: Vince Vernon, DO [Primary Care Provider] - Diet: Carb Consistent or DM2 Addtl Attending Provider Instructions: You were admitted to the hospital due to pain occasioned by disseminated shingles. You were treated with pain medication, and antivirus. You will continue Valacyclovir for 4 days more, to complete 7 days in total. Your foot was evaluated during your stay, no infection noticed. Continue wound care at home A discharge summary will be sent to your primary care physician to ensure continuity of care. Please bring this discharge summary with you to your next office appointment so that your provider can review it at that time. Follow-up appointments: Make a follow-up appointment with your PCP within the next week. It is very important that you follow up with them shortly after discharge from the hospital. Medications: Your medication list has been reviewed and reconciled upon discharge to ensure accuracy and continuity of care. An updated list of all your medications is included with your hospital discharge paperwork. Please review this list closely, and make note of any changes. We sent a new medication called Valacyclovir to your pharmacy. Take Valacyclovir 1000mg three times a day for 4 days more. Take your medications as instructed; do not skip a dose of your medicines. Make sure all of your doctors know every medicine you are taking (including [id number] medicines, vitamins, and supplements). Call your primary care provider before taking any new medicines (including over- the- counter medicines, vitamins, and supplements), because some of these may interact with your current medications, or may make your symptoms worse. Tell your primary care provider if you cannot afford your medications. Difficulty following your treatment plan, or difficulty taking medications CALL 911 OR GO TO THE EMERGENCY DEPARTMENT if you experience any of the follow ing: Sudden, severe abdominal pain or nausea/vomiting Severe chest pain, or chest pain that radiates (moves) to your jaw or arm Sudden, severe shortness of breath or difficulty breathing Thank you for allowing us to participate in your care. Pending Studies at Discharge: No Stand-Alone Forms: My [facility] Codesion, Smoking Cessation Medications and DC Order Prescriptions: New valacyclovir 500 mg tablet 1,000 mg PO TID 4 Days Qty: 24 0RF Continued amitriptyline 50 mg Tablet 50 mg PO HS 30 Days Qty: 30 0RF divalproex 500 mg Tablet Extended Release 24 Hr 500 mg PO BID 30 Days Qty: 60 0RF prochlorperazine maleate 5 mg tablet 5 mg PO Q8 PRN (Reason: Nausea) baclofen 20 mg tablet 20 mg PO TID oxycodone-acetaminophen 7.5-325 mg tablet 2 tab PO Q4 PRN (Reason: Pain,severe) ropinirole 2 mg Tablet 4 mg PO HS zolpidem 10 mg tablet 10 mg PO HS PRN (Reason: Sleep) Rx Instructions: do not take within 3 hours of opiod pain med insulin lispro 100 unit/mL insulin pen 5 unit SUBCUT TIDM Rx Instructions: plus sliding scale insulin glargine [Lantus Solostar U-100 Insulin] 100 unit/mL (3 mL) insulin pen 10 unit SUBCUT HS metoprolol succinate [Toprol XL] 50 mg tablet extended release 24 hr 50 mg PO QAM albuterol sulfate 90 mcg/actuation HFA aerosol inhaler 2 puff INHALATION Q6 PRN (Reason: Shortness Of Breath Or Wheezing) prazosin 1 mg capsule 1 mg PO TID lisinopril 10 mg tablet 10 mg PO DAILY ondansetron HCl 4 mg tablet 4 mg PO HS PRN (Reason: Nausea) pantoprazole 40 mg tablet,delayed release (DR/EC) 40 mg PO BID docusate sodium 100 mg Capsule 100 mg PO BID alprazolam 1 mg tablet 1 mg PO TID PRN (Reason: Anxiety) clopidogrel [Plavix] 75 mg tablet 75 mg PO DAILY Qty: 30 0RF Discharge Orders: Discharge Order (Routine); Ordered 06/26/23 Ordered By: Flaco Williamson Admission Data Admit Date/Time: 06/13/23 23:05 Attending Provider: Marian Quintana Admit Provider: Snehal Arciniega Primary Care Provider: Vince Vernon Other Providers: Snehal Arciniega; Mathew Noriega; Rajat Brewer; Jon Whaley Other Interventions: Discharge Summary Assessment (RN) Last Done: 06/26/23 18:18 Supervising Physician Co-Signing Physician Notes Resident Physician Supervision Note: I independently interviewed and examined the patient and verified the tanner history and physical, reviewed labs and image studies and agree with resident findings and care plan. sitting in bed. still with some loose stools. alert/Ox3; shingles skin lesion crusted. heart rate regular. no resp distress. Foot pain with drainage at amputation site - no intervention per podiatry. outpatient wound care follow up Disseminated shingles - treated with antiviral. nausea/vomiting - secondary to underlying diabetic gastroparesis. overflow constipation addressed with aggressive bowel regimen and relistor. KUB with no concern of constipation.
== END 2023-06-26 18:35 | disposition home or self-care (01) | DRG 866 ==
LOC: ED 17:46 → 3W 23:05 → SUATTDRO 23:05 → 3W 23:33
DX: Z88.5 Allergy status to narcotic agent; Z87.891 Personal history of nicotine dependence; K59.09 Other constipation; I50.30 Unspecified diastolic (congestive) heart failure; Z88.1 Allergy status to other antibiotic agents; L97.529 Non-pressure chronic ulcer of other part of left foot with unspecified severity; R19.7 Diarrhea, unspecified; I25.10 Atherosclerotic heart disease of native coronary artery without angina pectoris; G89.4 Chronic pain syndrome; Z86.14 Personal history of Methicillin resistant Staphylococcus aureus infection; Z98.890 Other specified postprocedural states; E11.621 Type 2 diabetes mellitus with foot ulcer; E11.51 Type 2 diabetes mellitus with diabetic peripheral angiopathy without gangrene; I11.0 Hypertensive heart disease with heart failure; B02.7 Disseminated zoster; Z86.16 Personal history of COVID-19; Z88.2 Allergy status to sulfonamides; Z89.511 Acquired absence of right leg below knee; Z79.4 Long term (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

== ENCOUNTER 2023-08-07 09:58 | Inpatient (IN) ==
[2023-08-07] MEDS ORDERED: SODIUM CHLORIDE 0.9% 1,000 ML IV ONE (10:08)
[2023-08-07] MEDS ORDERED: fentaNYL citrate PF 100 MCG/2 ML VIAL IV STA ×2 (10:08→12:15)
[2023-08-07] MEDS ORDERED: ONDANSETRON INJ 2 MG/ML 2 ML VIAL IV STA (10:08)
--- NOTE | 2023-08-07 10:12 | Emergency Department Note ---
Impression & Plan Diffuse abdominal pain, Vomiting, Elevated troponin, Hypertension, Acute dehydration ED Provider Note Name: EILEEN ESCOBAR Age: 58 Sex: Female Arrives Via: Ambulance Informant: Patient, EMS, nursing staff ED Provider: Niall Larry MD Chief Complaint: Vomiting Impression: As per impressions above Medical Decision Makin-year-old female with extensive past medical history arrives for evaluation of intractable vomiting, hypertension, diffuse abdominal pain. Patient is screaming loudly in pain though difficult to initially assess where pain is. She was given some IV narcotics was clearly helped with her pain. Blood pressure started trending down. She required some IV Ativan as she was quite agitated. Unfortunately due to her extensive past medical history is very difficult to get IV access and a 24-gauge was obtained fortunately by IV team. Multiple other attempts at getting IV access were unsuccessful. IV team did ask that I attempt central line or EGD. Looking at her neck I do not see any clear ability to place IV without placing a central line. Given the patient's past medical history and no clear need for central line medications I think it would be against the best interest of the patient to do a central line at this point but will need to have close monitoring. I did discuss this with the hospitalist who agree with plan to monitor closely and if there were any need for emergent medications or she were to have critical illness then to that point place central line or IO. Patient's laboratory workup is concerning for an elevated troponin. EKG shows some mildly peaked T waves but repeat EKG is the same and it does appear somewhat similar to old EKGs. She is not having chest pain and thus I feel ACS is unlikely. A wonder if the hypertension she was having may have been part of the cause. Given the minimal IV access patient's history unable to get CT angio of abdomen but as pain is abating and her symptoms are not quite like ischemic gut I think it is unlikely that this is ischemia and thus we will hold off on attempting CTA. Patient does not appear to be infectious at this time. There is no clear infectious findings. Her nausea has started to improve especially with antianxiety medication. Will hold off on heparin as will need to come in for further monitoring. Hospitalist is aware of plan as this patient. Triage/Nursing Notes reviewed by Me Differential:Infection, intra-abdominal infection, bowel obstruction, ischemia, appendicitis dehydration, metabolic abnormality, hypo/hyperglycemia, electrolyte disturbance, anemia, hypoxia, cardiac sources, intracerebral event, toxicologic, neurologic, as well as other pathologies. Vital Signs: reviewed and remarkable for hypertension, mild tachycardia Interventions: Fentanyl IV, Ativan IV, normal saline bolus, Zofran IV, Reglan IV, Benadryl IV Labs:ED labs Reviewed by me and remarkable for elevated troponin Imaging:CT of the head without contrast as mine from interpretation no evidence of intracranial hemorrhage or mass effect. This confirmed by radiologist. CT of the abdomen pelvis without contrast as per my informal interpretation reveals no evidence of obstruction, free air, free fluid. Confirmed by radiologist. EKG:As per my interpretation. Indication intractable vomiting and hypertension. Sinus tachycardia 122 bpm no ectopy no ischemia. She does have somewhat peaked T waves compared to EKG from June 23, 2023 though rate has increased by significant amount as well. Cardiac/Tele Monitoring: Cardiac Monitoring: An Order was placed for continuous cardiac monitoring. The monitor shows a rate of 120 sinus tach rhythm. Consults:Dr Shemar RILEY Hospitalist Plan: Disposition:Hospitalization. Condition: Good History of Present Illness: History difficult to obtain as patient is in severe pain screaming loudly and not answering most questions. Patient states she is having severe diffuse abdominal pain for the last several days.. Associated with nausea vomiting. Has not had a bowel movement in several days. States she cannot keep any of her medications down due to the pain and vomiting. Pain sometimes radiates into back and into chest. Denies any known fevers. Further history essentially difficult to obtain. Past Medical History:See Below Home Medications:See Below Allergies:See Below Vitals:Blood Pressure: 220/114, Pulse 105, RR 25, T 36.6C, O2 96% on RA Physical Exam: GENERAL: Patient is chronically unwell appearing and in moderate distress. Dry heaving periodically screaming out. Dehydrated. RESPIRATORY: No dyspnea. Clear to auscultation and equal bilaterally. CARDIOVASCULAR: Mildly tachycardic.No murmur appreciated. GASTROINTESTINAL: Vague diffuse tenderness palpation without peritonitis and abdomen is otherwise soft BACK: No midline tenderness, no CVA tenderness EXTREMITIES: Normal motion all extremities, no cyanosis, no edema. Right BKA NEUROLOGIC: Alert and oriented. No focal neurologic deficits appreciated SKIN: No rash, no jaundice, no diaphoresis. PSYCH: Agitated GCS: 15 ED Course: Times/Reassessments: Many repeat evaluations of patient who eventually is calming down and symptoms seem to have abated. Blood pressure is slowly coming down as well. She is adamantly denying any chest pain or shortness of breath. She notes abdominal pain is more localized in bilateral inguinal regions. Patient had an episode of going unresponsive for nursing. On my evaluation patient is more seem to be just in a fair amount of pain and is responding to questions. This is improved after giving some Ativan. 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 No issues per anesthesia postop progress note. HTN (hypertension) Anemia Hyponatremia Cellulitis Peripheral neuropathy Benzodiazepine withdrawal Right second toe ulcer Diabetes mellitus type 2, uncontrolled Hyperlipidemia Seizures Gastritis Depression Chronic back pain Nonobstructive atherosclerosis of coronary artery Numbness of lower extremity Hypertriglyceridemia CAD (coronary artery disease) History of tobacco use Benzodiazepine dependence Restless leg syndrome Diabetic neuropathy Abdominal pain Gastroparesis Esophagitis determined by endoscopy GIB (gastrointestinal bleeding) Insulin dependent diabetes mellitus DM2 (diabetes mellitus, type 2) IDDM, A1c 07/2021-11% Surgical History (Updated 06/28/23 @ 00:12 by Barrett Persaud) History of right below knee amputation (12/22/21) Right Below Knee Amputation(Right) - Davon Good MD, FACS History of lumbar surgery History of esophagogastroduodenoscopy (EGD) Family History Mother , age 63 Myocardial infarction Father , age 68 or 69 Myocardial infarction Brother S/P CABG (coronary artery bypass graft) Sister Myocardial infarction x 3; she is 57yo Social History Smoking Status: Current some day smoker Tobacco Type: Cigarettes packs per day: 0.5; Cigarettes Per Day: 20; Second Hand Exposure: No; Do You Dip or Chew Tobacco: No; Tobacco Cessation Education Requested by Patient: No Hx Alcohol Use: No Hx Substance Use: No Preferred Language: Telugu Communication Ability: Effective Visual Impairment: No Limitations Hearing Ability: Normal Choir Teacher Required: No Beliefs That Will Affect Care: None marital status: Current Living Situation: Spouse current occupational status: unemployed 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 Other Information That Helps Us Care for You: No other: raising a grandchild as well; lives in [place] Feels Safe at Home: Yes Safety Concerns: Feels Safe At This Time Diet: diabetic and low salt during the past year weight has: remained stable Assistive Devices: Walker and Wheelchair Allergies Allergies Allergy/AdvReac Type Severity Reaction Status Date / Time morphine Allergy Severe blisters Verified 05/18/23 11:52 in mouth Sulfa (Sulfonamide Allergy Severe rash/swelli Verified 05/18/23 11:52 Antibiotics) ng amoxicillin [From Augmentin] Allergy Intermediate itching/power Verified 05/18/23 11:52 h ceftriaxone [From Rocephin] Allergy Intermediate Hives Verified 05/18/23 11:52 clavulanic acid Allergy Intermediate itching/power Verified 05/18/23 11:52 [From Augmentin] h erythromycin base Allergy Intermediate Hives Verified 05/18/23 11:52 iron [From Venofer] Allergy Intermediate Hypertensio Verified 05/18/23 11:52 n vancomycin Allergy Intermediate YULIYA Verified 05/18/23 11:52 SYNDROME---CAN TAKE IF VERY SLOW DRIP. gabapentin Allergy Nausea Verified 06/17/23 07:28 adhesive AdvReac Intermediate DERMABOND Verified 05/18/23 11:52 excoriates skin Home Meds Home Medications Medication Instructions Recorded Confirmed ropinirole 2 mg tablet 4 mg PO HS 10/19/20 08/07/23 insulin lispro 100 unit/mL 5 unit subcut TIDM 03/08/22 08/07/23 subcutaneous pen zolpidem 10 mg tablet 10 mg PO HS PRN Sleep 03/08/22 08/07/23 insulin glargine 100 unit/mL (3 10 unit subcut HS 10/17/22 08/07/23 mL) subcutaneous pen (Lantus Solostar U-100 Insulin) albuterol sulfate 90 mcg/actuation 2 puff inhalation Q6 PRN Shortness 05/08/23 08/07/23 aerosol inhaler Of Breath Or Wheezing alprazolam 1 mg tablet 1 mg PO TID PRN Anxiety 05/08/23 08/07/23 docusate sodium 100 mg capsule 100 mg PO BID 05/08/23 08/07/23 lisinopril 10 mg tablet 10 mg PO DAILY 05/08/23 08/07/23 metoprolol succinate 50 mg 50 mg PO QAM 05/08/23 08/07/23 tablet,extended release 24 hr (Toprol XL) pantoprazole 40 mg tablet,delayed 40 mg PO BID 05/08/23 08/07/23 release prazosin 1 mg capsule 1 mg PO TID 05/08/23 08/07/23 oxycodone-acetaminophen 7.5 mg-325 2 tab PO Q4 PRN Pain,severe 06/13/23 08/07/23 mg tablet prochlorperazine maleate 5 mg 5 mg PO Q8 PRN Nausea 06/13/23 08/07/23 tablet cyclobenzaprine 10 mg tablet 10 mg PO BID 08/07/23 08/07/23 Previous Rx's Medication Instructions Recorded clopidogrel 75 mg tablet (Plavix) 75 mg PO DAILY #30 tabs 05/10/23 Results & Data (ED) Vital Signs Vital Signs - 24 hr 08/07/23 10:02 08/07/23 10:02 08/07/23 10:05 Temperature 36.7 C Temperature Source Axillary Pulse Rate 120 H 120 H Pulse Rate [Apical] Pulse Rate from SpO2 Sensor Pulse Strength [Apical] Respiratory Rate 22 23 Respiratory Effort / Characteristics Non-Labored Spontaneous Respiratory Depth Normal Respiratory Pattern Blood Pressure 182/125 H 182/125 H Blood Pressure [Left Arm] Blood Pressure Mean 163 144 Blood Pressure Mean [Left Arm] Pulse Oximetry 100 98 Oxygen Delivery Method Room Air Sepsis Recent Fever Within 48 Hours Yes Sepsis New/Unexplained Change in Mental Status No Sepsis Action Taken by Nursing Physician Notified 08/07/23 10:10 08/07/23 10:12 08/07/23 10:20 Temperature Temperature Source Pulse Rate 106 H 118 H 106 H Pulse Rate [Apical] Pulse Rate from SpO2 Sensor Pulse Strength [Apical] Respiratory Rate 16 Respiratory Effort / Characteristics Respiratory Depth Respiratory Pattern Blood Pressure Blood Pressure [Left Arm] Blood Pressure Mean Blood Pressure Mean [Left Arm] Pulse Oximetry 96 100 Oxygen Delivery Method Sepsis Recent Fever Within 48 Hours Sepsis New/Unexplained Change in Mental Status Sepsis Action Taken by Nursing 08/07/23 10:30 08/07/23 10:38 08/07/23 10:38 Temperature Temperature Source Pulse Rate 94 H Pulse Rate [Apical] Pulse Rate from SpO2 Sensor 98 H Pulse Strength [Apical] Respiratory Rate Respiratory Effort / Characteristics Respiratory Depth Respiratory Pattern Blood Pressure 234/115 H Blood Pressure [Left Arm] Blood Pressure Mean 162 Blood Pressure Mean [Left Arm] Pulse Oximetry 96 100 Oxygen Delivery Method Sepsis Recent Fever Within 48 Hours Sepsis New/Unexplained Change in Mental Status Sepsis Action Taken by Nursing 08/07/23 10:40 08/07/23 10:41 08/07/23 10:41 Temperature Temperature Source Pulse Rate 111 H 121 H Pulse Rate [Apical] Pulse Rate from SpO2 Sensor Pulse Strength [Apical] Respiratory Rate 19 16 Respiratory Effort / Characteristics Respiratory Depth Respiratory Pattern Blood Pressure 216/146 H Blood Pressure [Left Arm] Blood Pressure Mean 186 Blood Pressure Mean [Left Arm] Pulse Oximetry 100 100 Oxygen Delivery Method Sepsis Recent Fever Within 48 Hours Sepsis New/Unexplained Change in Mental Status Sepsis Action Taken by Nursing 08/07/23 10:43 08/07/23 10:43 08/07/23 12:07 Temperature Temperature Source Pulse Rate 102 H Pulse Rate [Apical] 105 H Pulse Rate from SpO2 Sensor Pulse Strength [Apical] Normal Respiratory Rate 23 18 Respiratory Effort / Characteristics Non-Labored Spontaneous Respiratory Depth Normal Respiratory Pattern Regular Blood Pressure 228/102 H Blood Pressure [Left Arm] 174/114 H Blood Pressure Mean 150 Blood Pressure Mean [Left Arm] 134 Pulse Oximetry 99 94 Oxygen Delivery Method Room Air Sepsis Recent Fever Within 48 Hours Sepsis New/Unexplained Change in Mental Status Sepsis Action Taken by Nursing Laboratory Data 08/08/23 01:37 08/08/23 01:37 Lab Results 08/07/23 08/07/23 08/07/23 Range/Units 10:03 11:02 11:04 WBC 16.83 H (4.8-10.8) K/ul RBC 5.84 H (4.20-5.40) M/uL Hgb 16.4 H (12.0-16.0) g/dl POC Hgb 17.0 H (12.0-16.0) g/dl Hct 48.3 H (37.0-47.0) % POC Hct 50 H (37-47) % MCV 82.7 (80.0-100.0) fL MCH 28.1 (25.0-34.0) pg MCHC 34.0 (32.0-36.0) g/dL RDW Std Deviation 38.1 (36.4-46.3) fL RDW Coeff of Maria [place] Carmen 12.6 (11.5-14.5) % Plt Count 278 (130-400) K/uL MPV 9.9 (9.4-12.4) fL Immature Gran % (Auto) 0.7 % Neut % (Auto) 88.4 % Lymph % (Auto) 7.6 % Levy % (Auto) 2.9 % Eos % (Auto) 0.1 % Baso % (Auto) 0.3 % Neut # (Auto) 14.89 H (1.40-6.50) K/uL Lymph # (Auto) 1.28 (1.20-3.40) K/uL Levy # (Auto) 0.48 (0.11-0.59) K/uL Eos # (Auto) 0.01 (0.00-0.50) K/uL Baso # (Auto) 0.05 (0.00-0.20) K/uL Immature Gran # (Auto) 0.12 (0.01-0.20) K/uL VBG pH Cancelled VBG pCO2 Cancelled VBG pO2 Cancelled VBG HCO3 Cancelled VBG O2 Saturation Cancelled VBG Base Excess Cancelled Barometric Pressure Cancelled POC Sodium 136 (135-144) mmol/L Sodium 135 L (136-145) mmol/L POC Potassium 3.8 (3.3-5.0) mmol/L Potassium 3.9 (3.5-5.1) mmol/L POC Chloride 96 L (101-112) mmol/L Chloride 96 L (98-107) mmol/L Carbon Dioxide 24 (21-32) mmol/L POC Total CO2 23 L (24-31) mmol/L Anion Gap 15 H (3-11) POC Anion Gap 21.0 (16-25) mmol/L POC BUN 12 (7-18) mg/dl BUN 12 (6-23) mg/dl Creatinine 0.56 L (0.6-1.2) mg/dl POC Creatinine 0.3 L (0.6-1.3) mg/dl Est Cr Clr Drug Dosing 96.3 ml/min Est GFR ( Amer) 118.3 ml/min Est GFR (Non-Af Amer) 102.1 ml/min BUN/Creatinine Ratio 21.4 H (10-20) Glucose 229 H (70-99(Fasting)) mg/dl POC Glucose 227 H (70-99) mg/dl POC Glucose (other) 235 H (70-99) mg/dl Calcium 10.3 (8.6-10.3) mg/dl POC Ioniz Calcium Coy 0.99 L (1.12-1.32) mmol/l Magnesium 1.7 (1.7-2.4) mg/dl Total Bilirubin 0.7 (0.2-1.0) mg/dl Direct Bilirubin 0.1 (0-0.2) mg/dl AST 12 L (13-39) U/L ALT 12 (7-52) U/L Alkaline Phosphatase 89 (34-104) U/L Troponin I High Sens 55.0 H* (0-14) pg/ml Total Protein 8.8 H (6.0-8.3) gm/dl Albumin 5.1 H (3.4-5.0) gm/dl Lipase 5 L (11-82) U/L Procalcitonin < 0.05 (0-0.5) ng/ml Ethyl Alcohol mg/dL < 10.0 (<10.0) mg/dl Administered Medications Alprazolam (Alprazolam 0.5 Mg Tablet) 1 mg PO TID PRN PRN Reason: Anxiety Stop: 09/06/23 16:59 Last Admin: 08/08/23 05:39 Dose: 1 mg Documented By: Admin: 08/07/23 17:37 Dose: 1 mg Documented By: WS Clopidogrel Bisulfate (Clopidogrel Bisulfate 75 Mg Tab) 75 mg PO DAILY RICKY Stop: 09/07/23 08:59 Last Admin: 08/08/23 08:40 Dose: 75 mg Documented By: HM Cyclobenzaprine HCl (Cyclobenzaprine Hcl 10 Mg Tab) 10 mg PO BID [facility] Stop: 09/06/23 20:59 Last Admin: 08/08/23 08:38 Dose: 10 mg Documented By: Admin: 08/07/23 21:07 Dose: 10 mg Documented By: PAH Docusate Sodium (Docusate Sodium 100 Mg Cap) 100 mg PO BID [facility] Stop: 09/06/23 20:59 Last Admin: 08/08/23 09:02 Dose: Not Given Documented By: Admin: 08/07/23 21:07 Dose: Not Given Documented By: PAH Enoxaparin Sodium (Enoxaparin Inj 40 Mg/0.4 Ml Syr) 40 mg SQ Q24H [facility] Stop: 09/06/23 16:59 Last Admin: 08/07/23 17:53 Dose: 40 mg Documented By: WS Hydromorphone HCl (Hydromorphone Inj 0.5 Mg/0.5 Ml Syr) 0.5 mg IV Q6H PRN PRN Reason: Pain (8+) Stop: 08/21/23 17:59 Last Admin: 08/08/23 05:39 Dose: 0.5 mg Documented By: Admin: 08/08/23 01:17 Dose: 0.5 mg Documented By: Admin: 08/07/23 20:40 Dose: 0.5 mg Documented By: CLC Prochlorperazine 5 mg/ Syringe 5 mls @ 5 mls/min IV Q6H PRN PRN Reason: Nausea And Vomiting Stop: 09/06/23 20:36 Last Admin: 08/08/23 09:33 Dose: 5 mls/min Documented By: Admin: 08/07/23 21:51 Dose: 5 mls/min Documented By: CLC Potassium Chloride/Sodium Chloride (Normal Saline W/20 Meq Kcl) 20 meq in 1,000 mls @ 80 mls/hr IV .[id number] [facility]; Protocol Stop: 09/07/23 08:29 Last Admin: 08/08/23 08:53 Dose: 80 mls/hr Documented By: [facility] Insulin Aspart (Insulin Aspart Per Unit Charge) 0 units SC Q6 [facility] Stop: 09/06/23 12:44 Last Admin: 08/08/23 06:18 Dose: Not Given Documented By: Admin: 08/08/23 01:18 Dose: 1 units Documented By: HONORIO Co-signed By: SHEA Admin: 08/07/23 18:44 Dose: 1 units Documented By: KURT Co-signed By: ALEISHA Admin: 08/07/23 16:00 Dose: 1 units Documented By: RHIANNA Co-signed By: CONCEPCION Insulin Glargine (Lantus Per Unit Charge) 10 units SQ HS [facility] Stop: 09/06/23 20:59 Last Admin: 08/07/23 21:16 Dose: 10 units Documented By: PAH Co-signed By: HONORIO Lisinopril (Lisinopril 10 Mg Tab) 10 mg PO DAILY [facility] Stop: 09/07/23 08:59 Last Admin: 08/08/23 08:40 Dose: 10 mg Documented By: SHAYAN Metoprolol Succinate (Metoprolol Succ 50mg Ext Rel Tab) 50 mg PO QAM [facility] Stop: 09/07/23 08:59 Last Admin: 08/08/23 08:39 Dose: 50 mg Documented By: SHAYAN Miscellaneous (Remove Nicoderm Patch) 1 each N/A DAILY@0859 [facility] Stop: 09/06/23 13:28 Last Admin: 08/08/23 09:01 Dose: 1 each Documented By: Admin: 08/07/23 17:50 Dose: Not Given Documented By: KURT Nicotine (Nicotine 14 Mg/24 Hr Patch) 14 mg TD QAM [facility] Stop: 09/07/23 08:59 Last Admin: 08/08/23 08:36 Dose: 14 mg Documented By: SHAYAN Oxycodone/Acetaminophen (Oxycodone/Apap 7.5/325mg Tab) 2 tab PO Q4 PRN PRN Reason: Pain (5+) Stop: 08/21/23 16:59 Last Admin: 08/08/23 08:43 Dose: 2 tab Documented By: SHAYAN Pantoprazole Sodium (Pantoprazole 40 Mg Tab) 40 mg PO BID [facility] Stop: 09/06/23 20:59 Last Admin: 08/08/23 08:37 Dose: 40 mg Documented By: Admin: 08/07/23 21:07 Dose: 40 mg Documented By: TONI Prazosin HCl (Prazosin Hcl 1 Mg Cap) 1 mg PO TID [facility] Stop: 09/06/23 16:59 Last Admin: 12/27/23 08:38 Dose: 1 mg Documented By: Admin: 08/07/23 17:53 Dose: 1 mg Documented By: KURT Ropinirole HCl (Ropinirole Hcl 2 Mg Tablet) 4 mg PO HS RICKY Stop: 09/06/23 20:59 Last Admin: 08/07/23 21:07 Dose: 4 mg Documented By: PAH Discontinued Medications Clopidogrel Bisulfate (Clopidogrel Bisulfate 75 Mg Tab) 75 mg PO NOW ONE Stop: 08/07/23 13:07 Last Admin: 08/07/23 16:00 Dose: 75 mg Documented By: RHIANNA Cyclobenzaprine HCl (Cyclobenzaprine Hcl 10 Mg Tab) 10 mg PO NOW STA Stop: 08/07/23 13:06 Last Admin: 08/07/23 15:59 Dose: 10 mg Documented By: RHIANNA Diphenhydramine HCl (Diphenhydramine 50 Mg/Ml Vial) 50 mg IV NOW STA Stop: 08/07/23 12:00 Last Admin: 08/07/23 12:03 Dose: 50 mg Documented By: RHIANNA Docusate Sodium (Docusate Sodium 100 Mg Cap) 100 mg PO NOW ONE Stop: 08/07/23 13:46 Last Admin: 08/07/23 15:59 Dose: 100 mg Documented By: RHIANNA Fentanyl Citrate (Fentanyl Citrate Pf 100 Mcg/2 Ml Vial) 75 mcg IV NOW STA Stop: 08/07/23 10:09 Last Admin: 08/07/23 10:18 Dose: 75 mcg Documented By: SHERRY Fentanyl Citrate (Fentanyl Citrate Pf 100 Mcg/2 Ml Vial) 75 mcg IV NOW STA Stop: 08/07/23 12:16 Last Admin: 08/07/23 12:28 Dose: 75 mcg Documented By: RHIANNA Hydromorphone HCl (Hydromorphone Inj 0.5 Mg/0.5 Ml Syr) 0.5 mg IV NOW STA Stop: 08/07/23 14:14 Last Admin: 08/07/23 14:58 Dose: 0.5 mg Documented By: RHIANNA Sodium Chloride (Nss) 1,000 mls @ 999 mls/hr IV .Q1H1M ONE Stop: 08/07/23 11:08 Last Infusion: 08/07/23 13:26 Dose: Infused Documented By: Admin: 08/07/23 10:18 Dose: 999 mls/hr Documented By: ML Lactated Ringer's (Lr) 1,000 mls @ 999 mls/hr IV .Q1H1M ONE Stop: 08/07/23 13:43 Last Infusion: 08/07/23 15:26 Dose: Infused Documented By: Admin: 08/07/23 13:24 Dose: 999 mls/hr Documented By: RHIANNA Pantoprazole Sodium 40 mg/ (Syringe) 10 mls @ 5 mls/min IV ONE ONE Stop: 08/07/23 13:01 Last Admin: 08/07/23 13:35 Dose: 5 mls/min Documented By: RHIANNA Lactated Ringer's (Lr) 1,000 mls @ 100 mls/hr IV .Q10H RICKY Stop: 08/08/23 16:44 Last Infusion: 08/08/23 09:02 Dose: Infused Documented By: Admin: 08/08/23 07:54 Dose: 100 mls/hr Documented By: DAMelina Infusion: 08/08/23 07:16 Dose: Infused Documented By: Admin: 08/07/23 21:16 Dose: 100 mls/hr Documented By: TONI Lisinopril (Lisinopril 10 Mg Tab) 10 mg PO NOW ONE Stop: 08/07/23 13:04 Last Admin: 08/07/23 13:36 Dose: 10 mg Documented By: RHIANNA Lorazepam (Lorazepam 1 Mg/1 Ml Syr Ed Inj Use) 1 mg IV ONE STA Stop: 08/07/23 10:42 Last Admin: 08/07/23 10:45 Dose: 1 mg Documented By: SHERRY Metoclopramide HCl (Metoclopramide Hcl Inj 5 Mg/Ml 2 Ml Vial) 10 mg IV NOW STA Stop: 08/07/23 12:00 Last Admin: 08/07/23 12:05 Dose: 10 mg Documented By: RHIANNA Metoprolol Succinate (Metoprolol Succ 50mg Ext Rel Tab) 50 mg PO NOW STA Stop: 08/07/23 13:04 Last Admin: 08/07/23 13:36 Dose: 50 mg Documented By: RHIANNA Metoprolol Tartrate (Metoprolol Tartrate 1 Mg/Ml Vial) 5 mg IV NOW STA Stop: 08/07/23 14:14 Last Admin: 08/07/23 14:22 Dose: 5 mg Documented By: RHIANNA Nicotine (Nicotine 14 Mg/24 Hr Patch) 14 mg TD QAM ONE Stop: 08/07/23 13:31 Last Admin: 08/07/23 14:00 Dose: 14 mg Documented By: RHIANNA Ondansetron HCl (Ondansetron Inj 2 Mg/Ml 2 Ml Vial) 4 mg IV NOW STA Stop: 08/07/23 10:09 Last Admin: 08/07/23 10:18 Dose: 4 mg Documented By: SHERRY Oxycodone/Acetaminophen (Oxycodone/Apap 7.5/325mg Tab) 2 tab PO NOW STA Stop: 08/07/23 13:30 Last Admin: 08/07/23 17:49 Dose: 2 tab Documented By: KURT Prochlorperazine (Prochlorperazine Maleate 5 Mg Tab) 5 mg PO NOW ONE Stop: 08/07/23 14:59 Last Admin: 08/07/23 16:04 Dose: 5 mg Documented By: RHIANNA Prochlorperazine (Prochlorperazine Maleate 5 Mg Tab) 5 mg PO Q8 PRN PRN Reason: Nausea Stop: 09/06/23 16:59 Last Admin: 08/07/23 17:53 Dose: 5 mg Documented By: KURT Discharge Plan Visit Data Chief Complaint: Illness Stated Complaint: n/v/d x3 days ED Provider: Niall Larry Discharge Problem: Diffuse abdominal pain, Vomiting, Elevated troponin, Hypertension, Acute dehydration Patient Disposition: Admitted As Inpatient Discharge Instructions Interventions: ED Discharge Assessment Last Done: 08/07/23 16:33 Discharge Problem: Vomiting Qualifiers: Vomiting type: unspecified Nausea presence: with nausea Qualified Code(s): R 11.2 - Nausea with vomiting, unspecified Hypertension Qualifiers: Hypertension type: primary hypertension Qualified Code(s): I10 - Essential (primary) hypertension
--- NOTE | 2023-08-07 10:40 | XRay Report ---
XR chest 1V portable HISTORY: 58 years-old Female diffuse abdominal pain, cough acute cough with chest and abdominal pain COMPARISON: Chest radiograph 05/18/2023 TECHNIQUE: AP view of the chest FINDINGS: Cardiomediastinal and hilar silhouettes are within normal limits. There is no pneumothorax, pleural e ffusion, airspace consolidation or pulmonary edema. The bones of the chest appear grossly intact. IMPRESSION: No acute process. ACT 112: Negative or not required by law. The above report was generated using voice recognition software. It may contain grammatical, syntax o r spelling errors. Electronically signed by: Puneet Howard M.D. 08/07/2023 10:38 AM
[2023-08-07] MEDS ORDERED: LORazepam 1 MG/1 ML SYR ED Inj Use IV STA (10:41)
[2023-08-07 11:14] LABS: iSTAT Creatinine 0.3 mg/dl (0.6-1.3); iSTAT Ionized Calcium 0.99 mmol/l (1.12-1.32); iSTAT Potassium 3.8 mmol/L (3.3-5.0)
[2023-08-07 11:18] LABS: Basophils # (auto) 0.05 K/uL (0.00-0.20); Basophils % (auto) 0.3 %; Eosinophils # (auto) 0.01 K/uL (0.00-0.50); Eosinophils % (auto) 0.1 %; Hematocrit (blood only) 48.3 % (37.0-47.0); Hemoglobin 16.4 g/dl (12.0-16.0); Immature Granulocytes # (auto) 0.12 K/uL (0.01-0.20); Immature Granulocytes % (auto) 0.7 %; Lymphocytes # (auto) 1.28 K/uL (1.20-3.40); Lymphocytes % (auto) 7.6 %; Mean Corpuscular Hemoglobin 28.1 pg (25.0-34.0); Mean Corpuscular Volume 82.7 fL (80.0-100.0); Mean Platelet Volume 9.9 fL (9.4-12.4); Monocytes # (auto) 0.48 K/uL (0.11-0.59); Monocytes % (auto) 2.9 %; Neutrophils # (auto) 14.89 K/uL (1.40-6.50); Neutrophils % (auto) 88.4 %; Platelet Count 278 K/uL (130-400); RDW Coefficient of Variation 12.6 % (11.5-14.5); RDW Standard Deviation 38.1 fL (36.4-46.3); Red Blood Count 5.84 M/uL (4.20-5.40); White Blood Count 16.83 K/ul (4.8-10.8)
[2023-08-07 11:34] LABS: Albumin Level 5.1 gm/dl (3.4-5.0); BUN Creatinine Ratio 21.4 (10-20); Bilirubin Direct 0.1 mg/dl (0-0.2); Bilirubin,Total 0.7 mg/dl (0.2-1.0); Calcium 10.3 mg/dl (8.6-10.3); Creatinine Clr Calc Pharmacy 96.3 ml/min; Est GFR (African American) 118.3 ml/min; Est GFR (Non-African American) 102.1 ml/min; Magnesium 1.7 mg/dl (1.7-2.4); Potassium 3.9 mmol/L (3.5-5.1); Total Protein 8.8 gm/dl (6.0-8.3)
--- NOTE | 2023-08-07 11:39 | CT Scan Report ---
CT SCAN OF THE BRAIN WITHOUT IV CONTRAST CLINICAL HISTORY: Change in mental status. Vomiting. COMPARISON STUDY: CT of the brain dated 10/17/2022. TECHNIQUE: Unenhanced axial CT scan of the brain is performed from the vertex to the skull base. A d ose lowering technique was utilized adhering to the principles of ALARA. FINDINGS: Brain parenchyma: The brain parenchyma is normal in appearance. There is no hemorrhage, mass effect, or evidence of acute territorial ischemia by CT criteria. Guevara-white matter differentiation is preser be. No extra-axial fluid collection is seen. Ventricles, sulci, cisterns: Normal in configuration. Intracranial vasculature: There is atherosclerotic calcification of the cavernous carotid and vertebr al arteries. Calvarium: Unremarkable. Sinuses and mastoids: The visualized paranasal sinuses are clear. The mastoid air cells are well pneu matized. Orbits: The bony orbits are grossly intact. IMPRESSION: There is no hemorrhage, mass effect, or evidence of acute territorial ischemia by CT [place]. ACT 112: Negative or not required by law. Electronically signed by: Finn Bradshaw M.D. 08/07/2023 11:38 AM
[2023-08-07 11:55] LABS: Base Excess VBG 3.2 mEq/L; HCO3 VBG 26 mmol/L; Oxygen Saturation VBG 98.3 %; PCO2 VBG 32 mmHg (38-50); PO2 VBG 142 mmHg; pH VBG 7.51 (7.36-7.41)
[2023-08-07] MEDS ORDERED: diphenhydrAMINE 50 MG/ML VIAL IV STA (11:59)
[2023-08-07] MEDS ORDERED: METOCLOPRAMIDE HCL INJ 5 MG/ML 2 ML VIAL IV STA (11:59)
--- NOTE | 2023-08-07 12:13 | CT Scan Report ---
ABDOMEN AND PELVIS CT WITHOUT CONTRAST CT DOSE: 1664.4 mGy.cm HISTORY: Acute generalized abdominal pain with nausea and vomiting intractable vomiting, ams TECHNIQUE: Multiaxial CT images of the abdomen and pelvis were performed without contrast. A dose lo wering technique was utilized adhering to the principles of ALARA. COMPARISON STUDY: 05/08/2023 FINDINGS: Coronary artery calcifications. There is no acute process of the imaged lower chest. Mild s ubsegmental dependent bibasilar atelectasis. There is no free air. The unenhanced spleen, moderately atrophic pancreas and adrenal glands are unremarkable. Cholecystect nel. Unremarkable liver. There are 2 nonobstructing calculi at the inferior pole right kidney measuri ng up to 4 mm. No ureteral calculi or hydronephrosis identified. Unremarkable left kidney and urinary bladder. No adnexal mass lesions. Atherosclerosis of the aorta and branch vessels again noted. No ly mphadenopathy. Tiny hiatal hernia. Small duodenal diverticulum. No bowel obstruction or bowel wall thickening. There is moderate colonic fecal retention. Small fat filled umbilical hernia. No ascites or mesenteric inf lammation. The appendix is reportedly surgically absent. No acute fracture. Postoperative changes of the lower lumbar spine. IMPRESSION: 1. No acute intra-abdominal or intrapelvic abnormality. 2. No bowel obstruction or bowel wall thickening. 3. Moderate colonic fecal retention. 4. Right nephrolithiasis. 5. Additional findings as above. ACT 112: Negative or not required by law. The above report was generated using voice recognition software. It may contain grammatical, syntax o r spelling errors. Electronically signed by: Puneet Howard M.D. 08/07/2023 12:11 PM
[2023-08-07 12:29] LABS: Appearance Urine Cloudy (Clear); Bacteria Urine Automated Negative (Negative); Bilirubin Urine Negative (Negative); Blood Urine 1+ (Negative); Color Urine Yellow; Epithelial Cell Urine Auto >30 /lpf (0-5); Glucose Urine UA 3+ (Negative); Ketones Urine 1+ (Negative); Leukocyte Esterase Urine Negative (Negative); Nitrite Urine Negative (Negative); Specific Gravity Urine 1.024 (1.000-1.030); Urobilinogen Urine Negative (Negative); pH Urine 8.5 (4.5-7.5)
[2023-08-07 12:30] LABS: Protein Urine 3+ (Negative)
--- NOTE | 2023-08-07 12:30 | History & Physical Report ---
Date of Service August 07, 2023 Assessment & Plan (1) Uncontrolled hypertension: Plan: -Admit to the PCU on tele and pulse oximetry -Currently hemodynamically stable and stable on RA -Was noted to be significant hypertensive on arrival at 234/115 -Her HTN today is liekly due to not taking her am antihypertensives and increased pain on arrival -Now stable at 124/86 after receiving IV fentanyl and Ativan in the ED -Will give her am doses of metoprolol and lisinopril now as she feels she can tolerate clears and meds -Continue TID prazosin -Patient currently has one, 24 gauge peripheral IV site due to significantly poor access. If she remains hypertensive later today we will need to consider central line placement or Clonidine patch -CT head, chest xray, and CT abd/pelvis wo con were negative for acute findigns -SQ lovenox for DVT PPX -Clear liquid diet for now -AM CBC, BMP, mag (2) Abdominal pain: Plan: -Likely due to moderate colonic fecal burden on CT of the abd/pelvis today -Patient has likely been having overflow diarrhea -No recent fevers, no other acute findings on CT of the abd/pelvis -Abdominal exam is benign -Will start BID miralax and Colace, may need to escalate regimen if she does not have a BM later today -Monitor for improvement when having consistent BM's (3) Groin pain: Plan: -Patient noted intermediate BL groin pain with radiation in the the right thigh -No acute findings on exam, patient with intact peripheral pulses in the BL LE's without signs of significant arterial occlusion -Has been taking her plavix as prescribed -Has been having difficulty with smoking cessation, currently smoking again -Will hold off on arterial imaging for now with benign exam, her pain is likely a combination of her chronic pain syndrome and constipation -Continue home pain regimen of Percocet and Flexeril (state PCP recently restarted and stopped Baclofen) -Will try and avoid further IV narcotics with her hx of chronic pain/opioid dependence and chronic constipation (4) Elevated troponin: Plan: -Initial high sen trop elevated at 55 -Patient denies chest pain and is without acute ST segment or T-wave changes -Likely due to demand from significant hypertension on arrival and dehydration -Will monitor 2 hour repeat high sen trop and trend as needed -Continue to monitor on tele (5) Leukocytosis: Plan: -Patient with CBC consistent with hemoconcentration -Patient appears dehydrated on exam without signs of acute infection -Does note some mild pain and erythema of the left 3rd toe -Will hold abx at this time, continue IV hydration -Will obtain xray of the left foot to monitor for OM -Monitor AM CBC (6) Nausea & vomiting: Plan: -Likely a combination of her constipation and known gastroparesis -Has resolved after antiemetics in the ED -Continue prn compazine for now (7) Diabetes mellitus type 2, uncontrolled: Plan: -Monitor BSG q6h until she is able to tolerate PO intake consistently; goal is 110-140 -Continue 10 units lantus HS -Start CF of 50 q6h -Clear liquid diet, advance as tolerated -Adjust regimen as needed (8) PAD (peripheral artery disease): Plan: -Conitnue plavix Plan The patient was discussed with Dr. Reddy at the time of the admission History of Present Illness Chief Complaint: Nausea, vomiting, diarrhea, letheragy Primary Care Provider: Vince Vernon DO Mariana is a 58 year old female with a PMH significant for DM with gastroparesis, CAD, Chronic pain, PVD s/p right BKA and angioplasty of proximal KERLINE and distal KERLINE on 03/27/22, S/P amputation of left 1st and 2nd toes by Dr. Noriega who presented to the [facility] ED for lower abdominal pain, nausea, vomiting, diarrhea, and lethargy. In the ED she was noted to be hypertensive 234/115 and tachycardic at 120 but otherwise stable. Labs were significant for a CBC consistent with hemoconcentration, VBG pH of 7.51, pCO2 of 32, and pO2 of 142, AG of 15 with bicarb WNL, glucose of 235, UA without signs of infection, and initial high sen trop of 55. CT of the head/brain wo con and chest xray were negative for acute findings. CT of the abd/pelvis wo con was read as "1. No ac bobbi intra-abdominal or intrapelvic abnormality. 2. No bowel obstruction or bowel wall thickening. 3. Moderate colonic fecal retention. 4. Right nephrolithiasis.". Prior to admission the patient was given 1L NSS, 4 mg IV zofran, 10 mg IV metoclopramide, 50 mg IV Benadryl, and 2 doses of 75 mcg IV fentanyl. At the time of the exam the patient was sitting in bed in no acute distress. She states that she started to develop severe BL lower abdominal/groin pain with intermittent radiation to the right lateral thigh approximately 3-4 days ago. The patient has been constant, a 10/10 at it's most severe, and is described as sharp/stabbing. She has also had associated nausea and vomiting with non-bloody diarrhea. She states that she noticed blood in her vomit this am. She has been using her home pain regimen without relief of her symptoms. She has had very poor oral intake over the past 3-4 days but had been able to take all medications as of last night. She was unable to take any PO home meds this am prior to arrival. Her pain is currently a 6-7. She confirms that she completed her course of Valacyclovir on last discharge her herpes zoster and has been without recurrent rash. She denies recent fever, chills, chest pain, SOB, cough, dysuria, hematuria, melena, LE swelling, and recent trauma. She has been experiencing multiple episodes of non-bloody diarrhea over the past 3-4 days. Jose rodriguez is a full code and wishes for her to make medical decisions for her if she cannot make them herself. Please refer to Dr. Staton's attestation for any changes to the treatment plan Allergies Allergy/AdvReac Type Severity Reaction Status Date / Time morphine Allergy Severe blisters Verified 05/18/23 11:52 in mouth Sulfa (Sulfonamide Allergy Severe rash/swelli Verified 05/18/23 11:52 Antibiotics) ng amoxicillin [From Augmentin] Allergy Intermediate itching/power Verified 05/18/23 11:52 h ceftriaxone [From Rocephin] Allergy Intermediate Hives Verified 05/18/23 11:52 clavulanic acid Allergy Intermediate itching/power Verified 05/18/23 11:52 [From Augmentin] h erythromycin base Allergy Intermediate Hives Verified 05/18/23 11:52 iron [From Venofer] Allergy Intermediate Hypertensio Verified 05/18/23 11:52 n vancomycin Allergy Intermediate YULIYA Verified 05/18/23 11:52 SYNDROME---CAN TAKE IF VERY SLOW DRIP. gabapentin Allergy Nausea Verified 06/17/23 07:28 adhesive AdvReac Intermediate DERMABOND Verified 05/18/23 11:52 excoriates skin Home Medications Medication Instructions Recorded Confirmed Type ropinirole 2 mg tablet 4 mg PO HS 10/19/20 08/07/23 History insulin lispro 100 unit/mL 5 unit subcut TIDM 03/08/22 08/07/23 History subcutaneous pen zolpidem 10 mg tablet 10 mg PO HS PRN Sleep 03/08/22 08/07/23 History insulin glargine 100 unit/mL (3 10 unit subcut HS 10/17/22 08/07/23 History mL) subcutaneous pen (Lantus Solostar U-100 Insulin) albuterol sulfate 90 mcg/actuation 2 puff inhalation Q6 PRN Shortness 05/08/23 08/07/23 History aerosol inhaler Of Breath Or Wheezing alprazolam 1 mg tablet 1 mg PO TID PRN Anxiety 05/08/23 08/07/23 History docusate sodium 100 mg capsule 100 mg PO BID 05/08/23 08/07/23 History lisinopril 10 mg tablet 10 mg PO DAILY 05/08/23 08/07/23 History metoprolol succinate 50 mg 50 mg PO QAM 05/08/23 08/07/23 History tablet,extended release 24 hr (Toprol XL) pantoprazole 40 mg tablet,delayed 40 mg PO BID 05/08/23 08/07/23 History release prazosin 1 mg capsule 1 mg PO TID 05/08/23 08/07/23 History clopidogrel 75 mg tablet (Plavix) 75 mg PO DAILY #30 tabs 05/10/23 08/07/23 Rx oxycodone-acetaminophen 7.5 mg-325 2 tab PO Q4 PRN Pain,severe 06/13/23 08/07/23 History mg tablet prochlorperazine maleate 5 mg 5 mg PO Q8 PRN Nausea 06/13/23 08/07/23 History tablet cyclobenzaprine 10 mg tablet 10 mg PO BID 08/07/23 08/07/23 History Past Med/Surg History Medical History (Updated 08/07/23 @ 13:40 by Karthik Pineda PA-C) Foot pain Costochondritis Infection of left great toe due to methicillin resistant Staphylococcus aureus (MRSA) Diastolic CHF COVID-19 Osteomyelitis of great toe of left foot Chronic pain syndrome Opiate dependence Opiate abuse, continuous Acidosis, lactic Acute dehydration Gastroenteritis Sepsis Shortness of breath Opioid dependence Iron deficiency anemia Hypomagnesemia History of amputation of great toe Diabetic peripheral neuropathy Insomnia 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 No issues per anesthesia postop progress note. HTN (hypertension) Anemia Hyponatremia Cellulitis Peripheral neuropathy Benzodiazepine withdrawal Right second toe ulcer Diabetes mellitus type 2, uncontrolled Hyperlipidemia Seizures Gastritis Depression Chronic back pain Nonobstructive atherosclerosis of coronary artery Numbness of lower extremity Hypertriglyceridemia CAD (coronary artery disease) History of tobacco use Benzodiazepine dependence Restless leg syndrome Diabetic neuropathy Abdominal pain Gastroparesis Esophagitis determined by endoscopy GIB (gastrointestinal bleeding) Insulin dependent diabetes mellitus DM2 (diabetes mellitus, type 2) IDDM, A1c 07/2021-11% Surgical History (Updated 06/28/23 @ 00:12 by [facility] Daemon) History of right below knee amputation (12/22/21) Right Below Knee Amputation(Right) - Davon Good MD, FACS History of lumbar surgery History of esophagogastroduodenoscopy (EGD) Family History Mother , age 63 Myocardial infarction Father , age 68 or 69 Myocardial infarction Brother S/P CABG (coronary artery bypass graft) Sister Myocardial infarction x 3; she is 57yo Social History Smoking Status: Current some day smoker Tobacco Type: Cigarettes packs per day: 0.5; Cigarettes Per Day: 20; Second Hand Exposure: No; Do You Dip or Chew Tobacco: No; Tobacco Cessation Education Requested by Patient: No Hx Alcohol Use: No Hx Substance Use: No Preferred Language: Mozambican Communication Ability: Effective Visual Impairment: No Limitations Hearing Ability: Normal Candles Pourer Required: No Beliefs That Will Affect Care: None marital status: Current Living Situation: Spouse current occupational status: unemployed 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 Other Information That Helps Us Care for You: No other: raising a grandchild as well; lives in [place] Feels Safe at Home: Yes Safety Concerns: Feels Safe At This Time Diet: diabetic and low salt during the past year weight has: remained stable Assistive Devices: Walker and Wheelchair Physical Exam Physical Exam: Physical Exam: General: In no acute distress, stated age, chronically ill appearing but non- toxic HEENT: Normocephalic, atraumatic, no scleral icterus, pupils around round, symmetrical, and reactive to light, dry mucus membranes, trachea midline, no thyromegaly Chest/Pulm: No respiratory distress, symmetrical chest expansion, clear breath sounds throughout Cardiac: RRR, no murmurs noted Abdomen: Negative for ascites and bruising, normoactive bowel sounds, soft, tender to palpation in the BL lower abdominal cadrozo without rebound tenderness Musculoskeletal: No acute trauma. Right BKA site appears well-healed and without signs of infection, previous left first and second toe amputations sites appear well-healed and without signs of infection, left third toe with mild erythema on the distal joint Extremities: Bl radial pulses are intact and symmetrical, left DP pulse is intact and easily palpable, LLE and right proximal LE are warm and without pallor or paresthesias, Skin: Warm, dry, patient with petechial rash on the right forearm, patient denies itching/pain, otherwise no acute findings Neuro: Alert and oriented to person, place, month, year, and president, no focal defects,no tremors noted Psych: No acute distress, calm and cooperative during the exam Results & Data Results & Data Vital Signs (Past 12 Hours) Vital Signs Temp Pulse Pulse Resp BP BP Pulse Ox 08/07/23 12:07 105 H 18 174/114 H 94 08/07/23 10:43 228/102 H 08/07/23 10:43 102 H 23 99 08/07/23 10:41 121 H 16 100 08/07/23 10:41 216/146 H 08/07/23 10:40 111 H 19 100 08/07/23 10:38 234/115 H 08/07/23 10:38 100 08/07/23 10:30 94 H 96 08/07/23 10:20 106 H 100 08/07/23 10:12 118 H 08/07/23 10:10 106 H 16 96 08/07/23 10:05 36.7 C 120 H 23 182/125 H 98 08/07/23 10:02 120 H 22 100 08/07/23 10:02 182/125 H O2 Del Method 08/07/23 12:07 Room Air 08/07/23 10:43 08/07/23 10:43 08/07/23 10:41 08/07/23 10:41 08/07/23 10:40 08/07/23 10:38 08/07/23 10:38 08/07/23 10:30 08/07/23 10:20 08/07/23 10:12 08/07/23 10:10 08/07/23 10:05 Room Air 08/07/23 10:02 08/07/23 10:02 Laboratory Results Abnormal lab results 08/07/23 08/07/23 08/07/23 Range/Units 10:03 11:02 11:04 WBC 16.83 H (4.8-10.8) K/ul RBC 5.84 H (4.20-5.40) M/uL Hgb 16.4 H (12.0-16.0) g/dl POC Hgb 17.0 H (12.0-16.0) g/dl Hct 48.3 H (37.0-47.0) % POC Hct 50 H (37-47) % Neut # (Auto) 14.89 H (1.40-6.50) K/uL VBG pH (7.36-7.41) VBG pCO2 (38-50) mmHg Sodium 135 L (136-145) mmol/L POC Chloride 96 L (101-112) mmol/L Chloride 96 L (98-107) mmol/L POC Total CO2 23 L (24-31) mmol/L Anion Gap 15 H (3-11) Creatinine 0.56 L (0.6-1.2) mg/dl POC Creatinine 0.3 L (0.6-1.3) mg/dl BUN/Creatinine Ratio 21.4 H (10-20) Glucose 229 H (70-99(Fasting)) mg/dl POC Glucose 227 H (70-99) mg/dl POC Glucose (other) 235 H (70-99) mg/dl POC Ioniz Calcium Coy 0.99 L (1.12-1.32) mmol/l AST 12 L (13-39) U/L Troponin I High Sens 55.0 H* (0-14) pg/ml Total Protein 8.8 H (6.0-8.3) gm/dl Albumin 5.1 H (3.4-5.0) gm/dl Lipase 5 L (11-82) U/L Urine Appearance (Clear) Urine pH (4.5-7.5) Urine Protein (Negative) Urine Glucose (UA) (Negative) Urine Ketones (Negative) Urine Blood (Negative) Urine RBC (Auto) (0-4) /hpf U Epithel Cells (Auto) (0-5) /lpf 08/07/23 Range/Units Unknown WBC (4.8-10.8) K/ul RBC (4.20-5.40) M/uL Hgb (12.0-16.0) g/dl POC Hgb (12.0-16.0) g/dl Hct (37.0-47.0) % POC Hct (37-47) % Neut # (Auto) (1.40-6.50) K/uL VBG pH 7.51 H (7.36-7.41) VBG pCO2 32 L (38-50) mmHg Sodium (136-145) mmol/L POC Chloride (101-112) mmol/L Chloride (98-107) mmol/L POC Total CO2 (24-31) mmol/L Anion Gap (3-11) Creatinine (0.6-1.2) mg/dl POC Creatinine (0.6-1.3) mg/dl BUN/Creatinine Ratio (10-20) Glucose (70-99(Fasting)) mg/dl POC Glucose (70-99) mg/dl POC Glucose (other) (70-99) mg/dl POC Ioniz Calcium Coy (1.12-1.32) mmol/l AST (13-39) U/L Troponin I High Sens (0-14) pg/ml Total Protein (6.0-8.3) gm/dl Albumin (3.4-5.0) gm/dl Lipase (11-82) U/L Urine Appearance Cloudy A (Clear) Urine pH 8.5 H (4.5-7.5) Urine Protein 3+ H (Negative) Urine Glucose (UA) 3+ H (Negative) Urine Ketones 1+ H (Negative) Urine Blood 1+ H (Negative) Urine RBC (Auto) 10-30 H (0-4) /hpf U Epithel Cells (Auto) >30 H (0-5) /lpf Diagnostic Findings Chest X-Ray 08/07/23 10:08 XR chest 1V portable HISTORY: 58 years-old Female diffuse abdominal pain, cough acute cough with chest and abdominal pain COMPARISON: Chest radiograph 05/18/2023 TECHNIQUE: AP view of the chest FINDINGS: Cardiomediastinal and hilar silhouettes are within normal limits. There is no pneumothorax, pleural effusion, airspace consolidation or pulmonary edema. The bones of the chest appear grossly intact. IMPRESSION: No acute process. ACT 112: Negative or not required by law. The above report was generated using voice recognition software. It may contain grammatical, syntax or spelling errors. Electronically signed by: Puneet Howard M.D. 08/07/2023 10:38 AM Abdomen/Pelvis CT 08/07/23 11:[address] WITHOUT CONTRAST CT DOSE: 1664.4 mGy.cm HISTORY: Acute generalized abdominal pain with nausea and vomiting intractable vomiting, ams TECHNIQUE: Multiaxial CT images of the abdomen and pelvis were performed without contrast. A dose lowering technique was utilized adhering to the principles of ALARA. COMPARISON STUDY: 05/08/2023 FINDINGS: Coronary artery calcifications. There is no acute process of the imaged lower chest. Mild subsegmental dependent bibasilar atelectasis. There is no free air. The unenhanced spleen, moderately atrophic pancreas and adrenal glands are unremarkable. Cholecystectomy. Unremarkable liver. There are 2 nonobstructing calculi at the inferior pole right kidney measuring up to 4 mm. No ureteral calculi or hydronephrosis identified. Unremarkable left kidney and urinary bladder. No adnexal mass lesions. Atherosclerosis of the aorta and branch vessels again noted. No lymphadenopathy. Tiny hiatal hernia. Small duodenal diverticulum. No bowel obstruction or bowel wall thickening. There is moderate colonic fecal retention. Small fat filled umbilical hernia. No ascites or mesenteric inflammation. The appendix is reportedly surgically absent. No acute fracture. Postoperative changes of the lower lumbar spine. IMPRESSION: 1. No acute intra-abdominal or intrapelvic abnormality. 2. No bowel obstruction or bowel wall thickening. 3. Moderate colonic fecal retention. 4. Right nephrolithiasis. 5. Additional findings as above. ACT 112: Negative or not required by law. The above report was generated using voice recognition software. It may contain grammatical, syntax or spelling errors. Electronically signed by: Puneet Howard M.D. 08/07/2023 12:[address] 08/07/23 11:05 CT SCAN OF THE BRAIN WITHOUT IV CONTRAST CLINICAL HISTORY: Change in mental status. Vomiting. COMPARISON STUDY: CT of the brain dated 10/17/2022. TECHNIQUE: Unenhanced axial CT scan of the brain is performed from the vertex to the skull base. A dose lowering technique was utilized adhering to the principles of ALARA. FINDINGS: Brain parenchyma: The brain parenchyma is normal in appearance. There is no hemorrhage, mass effect, or evidence of acute territorial ischemia by CT criteria. Guevara-white matter differentiation is preserved. No extra-axial fluid collection is seen. Ventricles, sulci, cisterns: Normal in configuration. Intracranial vasculature: There is atherosclerotic calcification of the cavernous carotid and vertebral arteries. Calvarium: Unremarkable. Sinuses and mastoids: The visualized paranasal sinuses are clear. The mastoid air cells are well pneumatized. Orbits: The bony orbits are grossly intact. IMPRESSION: There is no hemorrhage, mass effect, or evidence of acute territorial ischemia by CT criteria. ACT 112: Negative or not required by law. Electronically signed by: Finn Bradshaw M.D. 08/07/2023 11:38 AM ECG Additional Comments: Normal sinus rhythm Possible Anterior infarct (cited on or before 23-JUN-2023) Abnormal ECG When compared with ECG of 07-AUG-2023 10:04, (unconfirmed) No significant change was found Code Status & VTE Plan Code Status Full code VTE Prophylaxis Plan VTE Prophylaxis will be ordered: Yes Supervising Physician Co-Signing Physician Notes Attending addendum: I have physically seen this patient, have supervised the GROVER's activities, and agree with the H&P unless as otherwise noted. Assessment and Plan: Uncontrolled hypertension/CAD/PAD/elevated troponin- Contributing factors including but not limited to: Not taking medications at home, uncontrolled pain, worsening hypertension The patient will be admitted to telemetry for serial cardiac enzymes, serial EKG's, cardiac rhythm monitoring and a 2-D echocardiogram with Dopplers. Peak blood pressure 230/115 Blood pressure improved to 124/86 after receiving IV fentanyl, Ativan, and her usual oral medications Resume usual medications of metoprolol, lisinopril and prazosin Continue clopidogrel Patient is a poor vascular access. As noted, would place patient clonidine patch if loses IV access and unable to replace Troponin initially 55 on admission, with follow-up 105.6, likely secondary to increased heart rate Continue to follow troponin serially Abdominal pain/groin pain- CT abdomen and pelvis negative Liquid diet and advance as tolerated Avoid narcotics as noted due to dependence history PG Care Time/CCT Total # of Minutes Spent Total Time Spent with Patient: Total time spent is greater than 50% in coordination of care (as documented) at patient's floor/unit and/or counseling patient: C[place] [address] INT INP/OBS CARE 2/55MIN Patient Type Established Medical Decision Making Moderate Complexity Diagnoses Uncontrolled hypertension I10 Abdominal pain R10.9 Groin pain R10.30 Elevated troponin R79.89 Leukocytosis D72.829 Nausea & vomiting R11.2 Diabetes mellitus type 2, uncontrolled E11.65 PAD (peripheral artery disease) I73.9
[2023-08-07] MEDS ORDERED: CARBOHYDRATES FOR HYPOGLYCEMIA PO PRN (12:42)
[2023-08-07] MEDS ORDERED: GLUCOSE 40% GEL 15 GM TUBE PO PRN (12:42)
[2023-08-07] MEDS ORDERED: GLUCOSE 10 TAB/TUBE PO PRN (12:42)
[2023-08-07] MEDS ORDERED: GLUCAGON FOR INJ 1 MG VIAL SQ PRN (12:42)
[2023-08-07] MEDS ORDERED: DEXTROSE 50% 50 ML SYRINGE IV PRN (12:42)
[2023-08-07] MEDS ORDERED: LACTATED RINGER'S 1,000 ML IV ONE (12:43)
[2023-08-07] MEDS ORDERED: PANTOprazole 40 MG in SYRINGE 0 ML IV ONE (13:00)
[2023-08-07] MEDS ORDERED: lisinopril 10 MG TAB PO ONE (13:03)
[2023-08-07] MEDS ORDERED: METOPROLOL SUCC 50MG EXT REL TAB PO STA (13:03)
[2023-08-07] MEDS ORDERED: CYCLOBENZAPRINE HCL 10 MG TAB PO STA (13:05)
[2023-08-07] MEDS ORDERED: CLOPIDOGREL BISULFATE 75 MG TAB PO ONE (13:06)
[2023-08-07] MEDS ORDERED: oxyCODONE/APAP 7.5/325MG TAB PO STA (13:29)
[2023-08-07] MEDS ORDERED: NICOTINE 14 MG/24 HR PATCH TD ONE (13:30)
[2023-08-07] MEDS ORDERED: DOCUSATE SODIUM 100 MG CAP PO ONE (13:45)
[2023-08-07] MEDS ORDERED: METOPROLOL TARTRATE 1 MG/ML VIAL IV STA (14:13)
[2023-08-07] MEDS ORDERED: HYDROmorphone INJ 0.5 MG/0.5 ML SYR IV STA (14:13)
--- NOTE | 2023-08-07 14:17 | XRay Report ---
LEFT FOOT 2 VIEWS CLINICAL HISTORY: Third toe pain. FINDINGS: AP and lateral views of the left foot are compared to study dated 06/13/2023. The skeletal s tructures are osteopenic. No fracture is seen. Again seen is postsurgical change from amputation of t he first and second toes. No erosive change is seen typical for osteomyelitis. No periostitis is iden tified. Soft tissue edema is noted in the forefoot on the resection margins. No radiodense foreign attila dy is seen. Mild osteoarthritic change is seen in the midfoot. IMPRESSION: 1. Soft tissue swelling in the forefoot with no acute bony abnormality identified. 2. Osteopenia with chronic and postsurgical changes as above. Dictated: 08/07/2023 1:47 PM Transcribed: 08/07/2023 1:55 PM Sarbjit [id number] ARIAN_Daniel [id number] Electronically signed by: Finn Bradshaw M.D. 08/07/2023 2:15 PM
[2023-08-07 14:22] LABS: Influenza A virus by PCR Negative (Neg); Influenza B virus by PCR Negative (Neg); RSV by PCR Negative (Neg); SARS CoV2 RNA(COVID-19) Ceph NEGATIVE (Negative)
--- NOTE | 2023-08-07 14:26 | Electrocardiogram Report ---
Test Reason : Blood Pressure : / mmHG Vent. Rate : 094 BPM Atrial Rate : 094 BPM P-R Int : 166 ms QRS Dur : 086 ms QT Int : 364 ms P-R-T Axes : 063 052 068 degrees QTc Int : 455 ms Normal sinus rhythm When compared with ECG of 07-AUG-2023 10:04, (unconfirmed) No significant change was found Confirmed by Harvinder Guerra ([id number]) on 08/07/2023 2:26:11 PM Referred By: REFERRED SELF Confirmed By:Scot Guerra
--- NOTE | 2023-08-07 14:49 | Electrocardiogram Report ---
Test Reason : Blood Pressure : / mmHG Vent. Rate : 122 BPM Atrial Rate : 122 BPM P-R Int : 140 ms QRS Dur : 076 ms QT Int : 320 ms P-R-T Axes : 073 056 077 degrees QTc Int : 456 ms Sinus tachycardia Abnormal ECG When compared with ECG of 23-JUN-2023 10:59, Vent. rate has increased BY [address] now depressed in Anterior leads Confirmed by Harvinder Guerra ([id number]) on 08/07/2023 2:49:19 PM Referred By: REFERRED SELF Confirmed By:Scot Guerra
[2023-08-07] MEDS ORDERED: PROCHLORPERAZINE MALEATE 5 MG TAB PO ONE (14:58)
[2023-08-07] MEDS ORDERED: NALOXONE HCL 0.4 MG/1 ML VIAL/CARP IV PRN (15:05)
[2023-08-07] MEDS: INSULIN ASPART PER UNIT CHARGE SC SCH ×2 (16:00→18:44)
[2023-08-07] MEDS ORDERED: ALBUTEROL HFA 8 GM INHALER INH PRN (17:00)
[2023-08-07] MEDS ORDERED: PROCHLORPERAZINE MALEATE 5 MG TAB PO PRN (17:00)
[2023-08-07] MEDS: ALPRAZolam 0.5 MG TABLET PO PRN (17:37)
[2023-08-07] MEDS: PRAZOSIN HCL 1 MG CAP PO SCH (17:53)
[2023-08-07] MEDS: ENOXAPARIN INJ 40 MG/0.4 ML SYR SQ SCH (17:53)
--- NOTE | 2023-08-07 18:19 | Billing Data ---
Date of Service August 07, 2023 Coding Level of Care Code 33558 INT INP/OBS CARE
[2023-08-07] MEDS: HYDROmorphone INJ 0.5 MG/0.5 ML SYR IV PRN (20:40)
[2023-08-07] MEDS: PANTOprazole 40 MG TAB PO SCH (21:07)
[2023-08-07] MEDS: DOCUSATE SODIUM 100 MG CAP PO SCH (21:07)
[2023-08-07] MEDS: rOPINIRole HCL 2 MG TABLET PO SCH (21:07)
[2023-08-07] MEDS: CYCLOBENZAPRINE HCL 10 MG TAB PO SCH (21:07)
[2023-08-07] MEDS: LANTUS PER UNIT CHARGE SQ SCH (21:16)
[2023-08-07] MEDS: LACTATED RINGER'S 1,000 ML IV SCH (21:16)
[2023-08-07] MEDS: PROCHLORPERAZINE 5 MG in SYRINGE 4 ML IV PRN (21:51)
[2023-08-07] MEDS ORDERED: ZOLPIDEM TARTRATE 10 MG TAB PO PRN (22:29)
[2023-08-08] MEDS: HYDROmorphone INJ 0.5 MG/0.5 ML SYR IV PRN ×6 (01:17→21:02)
[2023-08-08] MEDS: INSULIN ASPART PER UNIT CHARGE SC SCH ×4 (01:18→21:08)
[2023-08-08 02:07] LABS: Basophils # (auto) 0.03 K/uL (0.00-0.20); Basophils % (auto) 0.2 %; Eosinophils # (auto) 0.03 K/uL (0.00-0.50); Eosinophils % (auto) 0.2 %; Hematocrit (blood only) 36.5 % (37.0-47.0); Hemoglobin 12.3 g/dl (12.0-16.0); Immature Granulocytes # (auto) 0.04 K/uL (0.01-0.20); Immature Granulocytes % (auto) 0.3 %; Lymphocytes % (auto) 23.9 %; Mean Corpuscular Hemoglobin 28.3 pg (25.0-34.0); Mean Corpuscular Hgb Conc 33.7 g/dL (32.0-36.0); Mean Corpuscular Volume 83.9 fL (80.0-100.0); Mean Platelet Volume 9.8 fL (9.4-12.4); Monocytes # (auto) 0.84 K/uL (0.11-0.59); Monocytes % (auto) 6.7 %; Neutrophils # (auto) 8.62 K/uL (1.40-6.50); Neutrophils % (auto) 68.7 %; Platelet Count 243 K/uL (130-400); RDW Coefficient of Variation 12.9 % (11.5-14.5); RDW Standard Deviation 39.1 fL (36.4-46.3); Red Blood Count 4.35 M/uL (4.20-5.40); White Blood Count 12.56 K/ul (4.8-10.8)
[2023-08-08 02:15] LABS: BUN Creatinine Ratio 26.4 (10-20); Calcium 8.7 mg/dl (8.6-10.3); Creatinine Clr Calc Pharmacy 101.8 ml/min; Est GFR (African American) 120.5 ml/min; Est GFR (Non-African American) 103.9 ml/min; Potassium 3.2 mmol/L (3.5-5.1)
[2023-08-08] MEDS: ALPRAZolam 0.5 MG TABLET PO PRN (05:39)
[2023-08-08 07:29] LABS: Estimated Average Glucose 174 mg/dl; Hemoglobin A1C 7.7 % (4.5-5.6)
[2023-08-08] MEDS: LACTATED RINGER'S 1,000 ML IV SCH (07:54)
[2023-08-08] MEDS: NICOTINE 14 MG/24 HR PATCH TD SCH (08:36)
[2023-08-08] MEDS: PANTOprazole 40 MG TAB PO SCH ×2 (08:37→19:33)
[2023-08-08] MEDS: CYCLOBENZAPRINE HCL 10 MG TAB PO SCH ×2 (08:38→19:32)
[2023-08-08] MEDS: PRAZOSIN HCL 1 MG CAP PO SCH ×3 (08:38→19:33)
[2023-08-08] MEDS: DOCUSATE SODIUM 100 MG CAP PO SCH ×3 (08:39→19:26)
[2023-08-08] MEDS: METOPROLOL SUCC 50MG EXT REL TAB PO SCH (08:39)
[2023-08-08] MEDS: CLOPIDOGREL BISULFATE 75 MG TAB PO SCH (08:40)
[2023-08-08] MEDS: oxyCODONE/APAP 7.5/325MG TAB PO PRN ×2 (08:43→19:32)
--- NOTE | 2023-08-08 08:48 | Electrocardiogram Report ---
Test Reason : Blood Pressure : / mmHG Vent. Rate : 082 BPM Atrial Rate : 082 BPM P-R Int : 148 ms QRS Dur : 088 ms QT Int : 418 ms P-R-T Axes : 040 050 059 degrees QTc Int : 488 ms Normal sinus rhythm Poor R wave progression, consider anterior VT vs. lead placement vs. LVH Abnormal ECG When compared with ECG of 07-AUG-2023 11:57, No significant change was found Confirmed by Harvinder Guerra ([id number]) on 08/08/2023 8:47:50 AM Referred By: REFERRED SELF Confirmed By:Scot Guerra
[2023-08-08] MEDS: NSS + 20MEQ KCL 20 MEQ/1,000 ML BAG IV SCH ×2 (08:53→19:36)
[2023-08-08] MEDS ORDERED: lisinopril 10 MG TAB PO SCH (09:00)
[2023-08-08] MEDS: PROCHLORPERAZINE 5 MG in SYRINGE 4 ML IV PRN (09:33)
[2023-08-08] MEDS ORDERED: Nursing to Pharmacy Communication SCH (12:00)
[2023-08-08] MEDS ORDERED: INSULIN ASPART PER UNIT CHARGE SC ONE (12:30)
--- NOTE | 2023-08-08 15:48 | Hospitalist Progress Note ---
Date of Service August 08, 2023 Assessment & Plan (1) Uncontrolled hypertension: Plan: Present on admission. Now improved. Lisinopril uptitrated to 20 mg daily. Continue other medications. Will use intravenous hydralazine as needed. (2) Abdominal pain: Plan: Chronic. Frequency of Dilaudid administration increased to every 3 hours since it is short-lived when administered. Will increase oxycodone dosage at discharge since she is narcotic tolerant. MiraLAX and Colace have been started to treat suspected constipation and overflow diarrhea. (3) Groin pain: Plan: Chronic. No significant physical findings. Pain control measures in place. (4) Elevated troponin: Plan: Mild. Probably supply/demand mismatch. No evidence of acute coronary syndrome (5) Leukocytosis: Plan: Mild. No signs of overt infection. Left foot x-ray negative for signs of osteomyelitis. Serial labs (6) Nausea & vomiting: Plan: Likely a combination of her constipation and known gastroparesis . Now on a bowel regimen. (7) Diabetes mellitus type 2, uncontrolled: Plan: ADA diet. Sliding scale coverage. Basal Lantus therapy. (8) PAD (peripheral artery disease): Plan: Stable. Conitnue plavix Plan Hopeful discharge to home soon Admission and Anticipated Discharge Date Admission Date: August 07, 2023 Subjective Alert and oriented. She is feeling better but continues to have chronic abdominal pain. Frequency of Dilaudid administration has been increased to more appropriate every 3 hours since it does not last very long. Lisinopril has been uptitrated from 10 to 20 mg daily. Will continue IV fluids for now. Diet has been advanced to regular diet. Blood pressure this morning was down to acceptable levels and heart rate 73. Hopefully she can go home soon. Review of Systems 2 Review of Systems: Constitutional-no fever or chills ENT-no blurred vision, no double vision, no epistaxis, no sore throat Respiratory-no cough, no wheezing, no shortness of breath Cardiac-no palpitations, no chest pain, no syncope GI-chronic abdominal pain and nausea. No vomiting. No hematochezia. -no urinary retention, no urinary incontinence, no dysuria, no hematuria Musculoskeletal-no joint pain, no muscle tenderness Skin-no bruising, no rashes, no pruritus Neuro-no isolated weakness, no paresthesia, no weakness Psych-no depression, no anxiety Physical Exam 2 Physical Exam: General-alert and oriented x3, no fevers, no chills HEENT-head atraumatic and normocephalic, pupils equal and reactive to light, extraocular muscles intact Neck-no lymphadenopathy or thyromegaly, trachea midline Chest-clear to auscultation percussion. No rales wheezing or rhonchi Cardiac-regular rate and rhythm, normal S1 and S2 Abdomen-normal bowel sounds, no hepatosplenomegaly. Diffuse mild tenderness. No masses. No rebound or guarding Extremities-no cyanosis, clubbing, or edema Neuro-cranial nerves II through XII intact, motor and sensory function within normal limits, strength symmetrical, no focal deficits Psych-normal affect, normal mood Results & Data Results & Data Vital Signs (Past 12 Hours) Vital Signs Temp Pulse Pulse Resp BP Pulse Ox O2 Del Method 08/08/23 14:57 36.7 C 83 17 153/71 H 95 Room Air 08/08/23 10:57 36.5 C 64 17 133/66 96 Room Air 08/08/23 07:27 73 08/08/23 07:09 36.6 C 75 17 102/56 L 96 Room Air Laboratory Results 08/08/23 01:37 08/08/23 01:37 PG Care Time/CCT Total # of Minutes Spent Total Time Spent with Patient: Total time spent is greater than 50% in coordination of care (as documented) at patient's floor/unit and/or counseling patient: Coding Level of Care Code 29636 SUB INP/OBS CARE 3/50MIN Diagnoses Uncontrolled hypertension I10 Abdominal pain R10.9 Groin pain R10.30 Elevated troponin R79.89 Leukocytosis D72.829 Nausea & vomiting R11.2 Diabetes mellitus type 2, uncontrolled E11.65 PAD (peripheral artery disease) I73.9
[2023-08-08] MEDS ORDERED: lisinopril 10 MG TAB PO ONE (16:03)
[2023-08-08] MEDS: ENOXAPARIN INJ 40 MG/0.4 ML SYR SQ SCH (17:56)
[2023-08-08] MEDS: rOPINIRole HCL 2 MG TABLET PO SCH (19:34)
[2023-08-08] MEDS ORDERED: diphenhydrAMINE Capsule 25 MG CAP PO ONE (19:42)
[2023-08-08] MEDS ORDERED: IBUPROFEN 600 MG TAB PO ONE (19:45)
[2023-08-08] MEDS ORDERED: MELATONIN 3 MG TAB PO PRN (19:48)
[2023-08-08] MEDS: LANTUS PER UNIT CHARGE SQ SCH (21:08)
[2023-08-09] MEDS: oxyCODONE/APAP 7.5/325MG TAB PO PRN ×2 (00:40→06:11)
[2023-08-09] MEDS: HYDROmorphone INJ 0.5 MG/0.5 ML SYR IV PRN ×3 (01:45→08:07)
[2023-08-09] MEDS: PROCHLORPERAZINE 5 MG in SYRINGE 4 ML IV PRN (04:44)
[2023-08-09] MEDS: ALPRAZolam 0.5 MG TABLET PO PRN (06:11)
[2023-08-09 07:51] LABS: Basophils # (auto) 0.04 K/uL (0.00-0.20); Basophils % (auto) 0.5 %; Eosinophils # (auto) 0.23 K/uL (0.00-0.50); Eosinophils % (auto) 3.1 %; Hemoglobin 11.8 g/dl (12.0-16.0); Immature Granulocytes # (auto) 0.01 K/uL (0.01-0.20); Immature Granulocytes % (auto) 0.1 %; Lymphocytes # (auto) 2.71 K/uL (1.20-3.40); Lymphocytes % (auto) 36.1 %; Mean Corpuscular Hemoglobin 28.1 pg (25.0-34.0); Mean Corpuscular Hgb Conc 33.7 g/dL (32.0-36.0); Mean Corpuscular Volume 83.3 fL (80.0-100.0); Mean Platelet Volume 10.1 fL (9.4-12.4); Monocytes # (auto) 0.61 K/uL (0.11-0.59); Monocytes % (auto) 8.1 %; Neutrophils # (auto) 3.91 K/uL (1.40-6.50); Neutrophils % (auto) 52.1 %; Platelet Count 205 K/uL (130-400); RDW Standard Deviation 39.7 fL (36.4-46.3); White Blood Count 7.51 K/ul (4.8-10.8)
[2023-08-09] MEDS: DOCUSATE SODIUM 100 MG CAP PO SCH (08:01)
[2023-08-09] MEDS: NICOTINE 14 MG/24 HR PATCH TD SCH (08:01)
[2023-08-09] MEDS: CLOPIDOGREL BISULFATE 75 MG TAB PO SCH (08:01)
[2023-08-09] MEDS: CYCLOBENZAPRINE HCL 10 MG TAB PO SCH (08:02)
[2023-08-09] MEDS: PANTOprazole 40 MG TAB PO SCH (08:02)
[2023-08-09] MEDS: PRAZOSIN HCL 1 MG CAP PO SCH ×2 (08:02→12:00)
[2023-08-09] MEDS: METOPROLOL SUCC 50MG EXT REL TAB PO SCH (08:02)
[2023-08-09 08:03] LABS: BUN Creatinine Ratio 26.3 (10-20); Calcium 8.9 mg/dl (8.6-10.3); Creatinine Clr Calc Pharmacy 141.6 ml/min; Est GFR (African American) 134.4 ml/min
[2023-08-09] MEDS: NSS + 20MEQ KCL 20 MEQ/1,000 ML BAG IV SCH (08:04)
[2023-08-09] MEDS: INSULIN ASPART PER UNIT CHARGE SC SCH ×2 (08:10→12:01)
[2023-08-09] MEDS ORDERED: lisinopril 20 MG TAB PO SCH (09:00)
[2023-08-09] MEDS ORDERED: oxyCODONE HCL IR 5 MG TAB (IMMEDIATE RELEASE) PO PRN (10:03)
--- NOTE | 2023-08-09 11:56 | Hospitalist Progress Note ---
Date of Service August 09, 2023 Assessment & Plan (1) Uncontrolled hypertension: Plan: Present on admission. Now improved. Lisinopril has been uptitrated to 20 mg daily. Continue other medications. Will use intravenous hydralazine as needed. (2) Abdominal pain: Plan: Chronic. Frequency of Dilaudid administration increased to every 3 hours since it is short-lived when administered. She states her her Percocet tablets worked well for her and she wants to remain on that at discharge. MiraLAX and Colace have been started to treat suspected constipation and overflow diarrhea. (3) Groin pain: Plan: Chronic. No significant physical findings. Pain control measures in place. (4) Elevated troponin: Plan: Mild. Probably supply/demand mismatch. No evidence of acute coronary syndrome (5) Leukocytosis: Plan: Mild. No signs of overt infection. Left foot x-ray negative for signs of osteomyelitis. Serial labs (6) Nausea & vomiting: Plan: Likely a combination of her constipation and known gastroparesis . Now on a bowel regimen. (7) Diabetes mellitus type 2, uncontrolled: Plan: ADA diet. Sliding scale coverage. Basal Lantus therapy. (8) PAD (peripheral artery disease): Plan: Stable. Conitnue plavix Plan She is stable for discharge home when her can make transportation arrangements Admission and Anticipated Discharge Date Admission Date: August 07, 2023 Subjective Tearful because of chronic pain. However, she refuses to see our pain management physicians. I reiterated to her that the evaluation for chronic pain needs to be on an outpatient basis. She will remain on parenteral Dilaudid as needed while here. She can go home later today if her is able to arrange transportation Review of Systems 2 Review of Systems: Constitutional-no fever or chills ENT-no blurred vision, no double vision, no epistaxis, no sore throat Respiratory-no cough, no wheezing, no shortness of breath Cardiac-no palpitations, no chest pain, no syncope GI-chronic abdominal pain and nausea. No vomiting. No hematochezia. -no urinary retention, no urinary incontinence, no dysuria, no hematuria Musculoskeletal-no joint pain, no muscle tenderness Skin-no bruising, no rashes, no pruritus Neuro-no isolated weakness, no paresthesia, no weakness Psych-no depression, no anxiety Physical Exam 2 Physical Exam: General-alert and oriented x3, no fevers, no chills HEENT-head atraumatic and normocephalic, pupils equal and reactive to light, extraocular muscles intact Neck-no lymphadenopathy or thyromegaly, trachea midline Chest-clear to auscultation percussion. No rales wheezing or rhonchi Cardiac-regular rate and rhythm, normal S1 and S2 Abdomen-normal bowel sounds, no hepatosplenomegaly. Diffuse mild tenderness. No masses. No rebound or guarding Extremities-no cyanosis, clubbing, or edema Neuro-cranial nerves II through XII intact, motor and sensory function within normal limits, strength symmetrical, no focal deficits Psych-normal affect, normal mood Results & Data Results & Data Vital Signs (Past 12 Hours) Vital Signs Temp Pulse Pulse Resp BP Pulse Ox O2 Del Method 08/09/23 08:00 71 08/09/23 07:24 36.7 C 64 18 159/76 H 96 Room Air 08/09/23 02:56 36.7 C 71 18 137/64 96 Room Air Laboratory Results 08/09/23 06:40 08/09/23 06:40 PG Care Time/CCT Total # of Minutes Spent Total Time Spent with Patient: Total time spent is greater than 50% in coordination of care (as documented) at patient's floor/unit and/or counseling patient: Coding Level of Care Code 66434 SUB INP/OBS CARE 3/50MIN Diagnoses Uncontrolled hypertension I10 Abdominal pain R10.9 Groin pain R10.30 Elevated troponin R79.89 Leukocytosis D72.829 Nausea & vomiting R11.2 Diabetes mellitus type 2, uncontrolled E11.65 PAD (peripheral artery disease) I73.9
--- NOTE | 2023-08-09 11:59 | Discharge Summary ---
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 Noriega who presented to the [facility] ED for lower abdominal pain, nausea, vomiting, diarrhea, and lethargy. In the ED she was noted to be hypertensive 234/115 and tachycardic at 120 but otherwise stable. Labs were significant for a CBC consistent with hemoconcentration, VBG pH of 7.51, pCO2 of 32, and pO2 of 142, AG of 15 with bicarb WNL, glucose of 235, UA without signs of infection, and ini tial high sen trop of 55. CT of the head/brain wo con and chest xray were negative for acute findings. CT of the abd/pelvis wo con was read as "1. No acute intra-abdominal or intrapelvic abnormality. 2. No bowel obstruction or bowel wall thickening. 3. Moderate colonic fecal retention. 4. Right nephrolithiasis.". Prior to admission the patient was given 1L NSS, 4 mg IV zofran, 10 mg IV metoclopramide, 50 mg IV Benadryl, and 2 doses of 75 mcg IV fentanyl. At the time of the exam the patient was sitting in bed in no acute distress. She states that she started to develop severe BL lower abdominal/groin pain with intermittent radiation to the right lateral thigh approximately 3-4 days ago. The patient has been constant, a 10/10 at it's most severe, and is described as sharp/stabbing. She has also had associated nausea and vomiting with non-bloody diarrhea. She states that she noticed blood in her vomit this am. She has been using her home pain regimen without relief of her symptoms. She has had very poor oral intake over the past 3-4 days but had been able to take all medications as of last night. She was unable to take any PO home meds this am prior to arrival. Her pain is currently a 6-7. She confirms that she completed her course of Valacyclovir on last discharge her herpes zoster and has been without recurrent rash. She denies recent fever, chills, chest pain, SOB, cough, dysuria, hematuria, melena, LE swelling, and recent trauma. She has been experiencing multiple episodes of non-bloody diarrhea over the past 3-4 days. She is a full code and wishes for her to make medical decisions for her if she cannot make them herself. Please refer to Dr. Staton's attestation for any changes to the treatment plan Principal Diagnosis Acute exacerbation of chronic abdominal pain and pelvic pain, hypertensive urgency, hypokalemia, elevated troponin without acute coronary syndrome Discharge Exam General-alert and oriented x3, no fevers, no chills HEENT-head atraumatic and normocephalic, pupils equal and reactive to light, extraocular muscles intact Neck-no lymphadenopathy or thyromegaly, trachea midline Chest-clear to auscultation percussion. No rales wheezing or rhonchi Cardiac-regular rate and rhythm, normal S1 and S2 Abdomen-normal bowel sounds, no hepatosplenomegaly. Diffuse mild tenderness. No masses. No rebound or guarding Extremities-no cyanosis, clubbing, or edema Neuro-cranial nerves II through XII intact, motor and sensory function within normal limits, strength symmetrical, no focal deficits Psych-normal affect, normal mood Discharge Data Allergies Allergy/AdvReac Type Severity Reaction Status Date / Time morphine Allergy Severe blisters Verified 05/18/23 11:52 in mouth Sulfa (Sulfonamide Allergy Severe rash/swelli Verified 05/18/23 11:52 Antibiotics) ng amoxicillin [From Augmentin] Allergy Intermediate itching/power Verified 05/18/23 11:52 h ceftriaxone [From Rocephin] Allergy Intermediate Hives Verified 05/18/23 11:52 clavulanic acid Allergy Intermediate itching/power Verified 05/18/23 11:52 [From Augmentin] h erythromycin base Allergy Intermediate Hives Verified 05/18/23 11:52 iron [From Venofer] Allergy Intermediate Hypertensio Verified 05/18/23 11:52 n vancomycin Allergy Intermediate YULIYA Verified 05/18/23 11:52 SYNDROME---CAN TAKE IF VERY SLOW DRIP. gabapentin Allergy Nausea Verified 06/17/23 07:28 adhesive AdvReac Intermediate DERMABOND Verified 05/18/23 11:52 excoriates skin Consultations 08/07/23 12:37 ED Decision to Admit Stat Ordered Studies 08/07/23 11:05 CT abd pelvis wo con Stat CT head/brain wo con Stat Hospital Course (1) Uncontrolled hypertension: Present on admission. Now improved. Lisinopril has been uptitrated to 20 mg daily. Continue other medications. Will use intravenous hydralazine as needed while hospitalized. (2) Abdominal pain: Chronic. Frequency of Dilaudid administration increased to every 3 hours since it is short-lived when administered. She states her her Percocet tablets worked well for her and she wants to remain on that at discharge. MiraLAX and Colace have been started to treat suspected constipation and overflow diarrhea. (3) Groin pain: Chronic. No significant physical findings. Pain control measures in place. (4) Elevated troponin: Mild. Probably supply/demand mismatch. No evidence of acute coronary syndrome (5) Leukocytosis: Mild. No signs of overt infection. Left foot x-ray negative for signs of osteomyelitis. Serial labs (6) Nausea & vomiting: Likely a combination of her constipation and known gastroparesis . Now on a bowel regimen. (7) Diabetes mellitus type 2, uncontrolled: ADA diet. Sliding scale coverage. Basal Lantus therapy. (8) PAD (peripheral artery disease): Stable. Conitnue plavix Plan She is stable for discharge home when her can make transportation arrangements Total Time Total Time Spent Total Time Spent (In Minutes): 45-minute Discharge Plan Discharge Items Patient Disposition: Home - Self-Care Reason For Visit: UNCONTROLLED HTN, NAUSEA, VOMITING, DIARRHEA Discharge Diagnosis: Hypertensive urgency, exacerbation of chronic abdomen and pelvic pain, hypokalemia, hypovolemia, elevated troponin without acute coronary syndrome Non-emergency contact: Primary Care Provider Call non-emergency contact if: your symptoms worsen Follow-up/Referrals: Vince Vernon DO [Primary Care Provider] - Diet: Carb Consistent or DM2 Addtl Attending Provider Instructions: Evaluation of chronic pain should be done as an outpatient. Lisinopril has been increased to 20 mg daily Pending Studies at Discharge: No Stand-Alone Forms: My [employer], Smoking Cessation Medications and DC Order Prescriptions: New lisinopril 20 mg Tablet 20 mg PO DAILY Qty: 30 0RF Continued prochlorperazine maleate 5 mg tablet 5 mg PO Q8 PRN (Reason: Nausea) oxycodone-acetaminophen 7.5-325 mg tablet 2 tab PO Q4 PRN (Reason: Pain,severe) cyclobenzaprine 10 mg tablet 10 mg PO BID ropinirole 2 mg Tablet 4 mg PO HS zolpidem 10 mg tablet 10 mg PO HS PRN (Reason: Sleep) Rx Instructions: do not take within 3 hours of opiod pain med insulin lispro 100 unit/mL insulin pen 5 unit SUBCUT TIDM Rx Instructions: plus sliding scale insulin glargine [Lantus Solostar U-100 Insulin] 100 unit/mL (3 mL) insulin pen 10 unit SUBCUT HS metoprolol succinate [Toprol XL] 50 mg tablet extended release 24 hr 50 mg PO QAM albuterol sulfate 90 mcg/actuation HFA aerosol inhaler 2 puff INHALATION Q6 PRN (Reason: Shortness Of Breath Or Wheezing) prazosin 1 mg capsule 1 mg PO TID pantoprazole 40 mg tablet,delayed release (DR/EC) 40 mg PO BID docusate sodium 100 mg Capsule 100 mg PO BID alprazolam 1 mg tablet 1 mg PO TID PRN (Reason: Anxiety) clopidogrel [Plavix] 75 mg tablet 75 mg PO DAILY Qty: 30 0RF Discontinued lisinopril 10 mg tablet 10 mg PO DAILY Discharge Orders: Discharge Order (Routine); Ordered 08/09/23 Ordered By: David Wolfe Admission Data Admit Date/Time: 08/07/23 12:41 Attending Provider: David Wolfe Admit Provider: Jayson Staton Primary Care Provider: Vince Vernon Other Providers: Jayson Staton Coding Level of Care Code 43865 INP/OBS DISCH >30 MIN Diagnoses Uncontrolled hypertension I10 Abdominal pain R10.9 Groin pain R10.30 Elevated troponin R79.89 Leukocytosis D72.829 Nausea & vomiting R11.2 Diabetes mellitus type 2, uncontrolled E11.65 PAD (peripheral artery disease) I73.9
[2023-08-09] MEDS: HYDROmorphone INJ 1 MG/ML SYRINGE IV PRN ×2 (12:00→15:15)
== END 2023-08-09 15:44 | disposition home or self-care (01) | DRG 305 ==
LOC: ED 09:58 → 2S 12:41 → SUATTDRO 12:41 → 2S 16:33
DX: I24.89 Other forms of acute ischemic heart disease; F17.210 Nicotine dependence, cigarettes, uncomplicated; D72.819 Decreased white blood cell count, unspecified; I25.10 Atherosclerotic heart disease of native coronary artery without angina pectoris; Z88.5 Allergy status to narcotic agent; Z86.16 Personal history of COVID-19; E11.43 Type 2 diabetes mellitus with diabetic autonomic (poly)neuropathy; I50.32 Chronic diastolic (congestive) heart failure; Z89.511 Acquired absence of right leg below knee; E87.6 Hypokalemia; I11.0 Hypertensive heart disease with heart failure; E11.51 Type 2 diabetes mellitus with diabetic peripheral angiopathy without gangrene; E11.42 Type 2 diabetes mellitus with diabetic polyneuropathy; Z88.2 Allergy status to sulfonamides; Z88.1 Allergy status to other antibiotic agents; Z79.4 Long term (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; I16.0 Hypertensive urgency; E86.0 Dehydration

== ENCOUNTER 2023-12-01 06:21 | Inpatient (IN) ==
[2023-12-01] MEDS: ONDANSETRON INJ 2 MG/ML 2 ML VIAL ONE (06:45)
[2023-12-01] MEDS: ONDANSETRON INJ 2 MG/ML 2 ML VIAL IV STA (06:45)
[2023-12-01] MEDS: HYDROmorphone INJ 1 MG/ML SYRINGE IV STA ×2 (07:26→09:47)
[2023-12-01] MEDS: SODIUM CHLORIDE 0.9% 1,000 ML IV ONE (07:28)
--- NOTE | 2023-12-01 07:34 | Emergency Department Note ---
History of Present Illness General Chief complaint: Abdominal Pain Stated complaint: Abdominal Pain, Vomiting Time Seen by Provider: 12/01/23 07:10 Source: patient, RN notes reviewed and old records reviewed (08/07/23-discharge summary when she was admitted for acute exacerbation of chronic abdominal pain) Mode of arrival: ambulatory Limitations: no limitations History of Present Illness Maximum Pain Intensity: 10 This patient is a 58-year-old female comes in after having abdominal pain for about 7 days she was seen here recently on Sunday says it has not gotten any better she has pain and vomiting to the lower abdomen and groin it comes and goes into the back. She says it gets better with pain medication .no fever. no dysuria or hematuria .no fall or trauma or injury. no chest pain or shortness of breath. Home Medications Medication Instructions Recorded Confirmed Type ropinirole 2 mg tablet 4 mg PO HS 10/19/20 12/01/23 History insulin lispro 100 unit/mL 5 unit subcut TIDM 03/08/22 12/01/23 History subcutaneous pen zolpidem 10 mg tablet 10 mg PO HS PRN Sleep 03/08/22 12/01/23 History insulin glargine 100 unit/mL (3 10 unit subcut HS 10/17/22 12/01/23 History mL) subcutaneous pen (Lantus Solostar U-100 Insulin) albuterol sulfate 90 mcg/actuation 2 puff inhalation QID PRN 05/08/23 12/01/23 History aerosol inhaler Shortness Of Breath Or Wheezing alprazolam 1 mg tablet 1 mg PO TID PRN Anxiety 05/08/23 12/01/23 History docusate sodium 100 mg capsule 100 mg PO BID 05/08/23 12/01/23 History metoprolol succinate 50 mg 50 mg PO QAM 05/08/23 12/01/23 History tablet,extended release 24 hr (Toprol XL) pantoprazole 40 mg tablet,delayed 40 mg PO BID 05/08/23 12/01/23 History release prazosin 1 mg capsule 1 mg PO TID 05/08/23 12/01/23 History clopidogrel 75 mg tablet (Plavix) 75 mg PO DAILY #30 tabs 05/10/23 12/01/23 Rx oxycodone-acetaminophen 7.5 mg-325 2 tab PO Q4 PRN Pain,severe 06/13/23 12/01/23 History mg tablet prochlorperazine maleate 5 mg 5 mg PO TID PRN Nausea 06/13/23 12/01/23 History tablet cyclobenzaprine 10 mg tablet 10 mg PO BID 08/07/23 12/01/23 History lisinopril 20 mg tablet 20 mg PO DAILY #30 tabs 08/09/23 12/01/23 Rx aspirin 81 mg tablet,delayed 81 mg PO DAILY 09/19/23 12/01/23 History release duloxetine 30 mg capsule,delayed 30 mg PO DAILY 09/19/23 12/01/23 History release hydralazine 25 mg tablet 25 mg PO TID 09/19/23 12/01/23 History nifedipine 60 mg tablet,extended 120 mg PO DAILY 09/19/23 12/01/23 History release 24 hr Allergies Allergy/AdvReac Type Severity Reaction Status Date / Time morphine Allergy Severe blisters Verified 12/01/23 12:03 in mouth Sulfa (Sulfonamide Allergy Severe rash/swelli Verified 12/01/23 12:03 Antibiotics) ng amoxicillin [From Augmentin] Allergy Intermediate itching/power Verified 12/01/23 12:03 h ceftriaxone [From Rocephin] Allergy Intermediate Hives Verified 12/01/23 12:03 clavulanic acid Allergy Intermediate itching/power Verified 12/01/23 12:03 [From Augmentin] h erythromycin base Allergy Intermediate Hives Verified 12/01/23 12:03 vancomycin Allergy Intermediate YULIYA Verified 12/01/23 12:03 SYNDROME---CAN TAKE IF VERY SLOW DRIP. adhesive AdvReac Intermediate DERMABOND Verified 12/01/23 12:03 excoriates skin gabapentin AdvReac Intermediate Nausea Verified 12/01/23 12:03 iron [From Venofer] AdvReac Intermediate Hypertensio Verified 12/01/23 12:03 n Past Med/Surg History Medical History Hypertension Groin pain PAD (peripheral artery disease) Foot pain Costochondritis Infection of left great toe due to methicillin resistant Staphylococcus aureus (MRSA) Diastolic CHF COVID-19 Osteomyelitis of great toe of left foot Chronic pain syndrome Opiate dependence Opiate abuse, continuous Acidosis, lactic Acute dehydration Gastroenteritis Sepsis Shortness of breath Opioid dependence Iron deficiency anemia Hypomagnesemia Diabetic peripheral neuropathy Insomnia 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 No issues per anesthesia postop progress note. HTN (hypertension) Anemia Hyponatremia Cellulitis Peripheral neuropathy Benzodiazepine withdrawal Right second toe ulcer Diabetes mellitus type 2, uncontrolled Hyperlipidemia Seizures Gastritis Depression Chronic back pain Nonobstructive atherosclerosis of coronary artery Numbness of lower extremity Hypertriglyceridemia CAD (coronary artery disease) History of tobacco use Benzodiazepine dependence Restless leg syndrome Diabetic neuropathy Abdominal pain Gastroparesis Esophagitis determined by endoscopy GIB (gastrointestinal bleeding) Insulin dependent diabetes mellitus DM2 (diabetes mellitus, type 2) IDDM, A1c 07/2021-11% Surgical History History of amputation of great toe History of right below knee amputation (12/22/21) Right Below Knee Amputation(Right) - Davon Good MD, FACS History of lumbar surgery History of esophagogastroduodenoscopy (EGD) Family History Mother , age 63 Myocardial infarction Father , age 68 or 69 Myocardial infarction Brother S/P CABG (coronary artery bypass graft) Sister Myocardial infarction x 3; she is 57yo Social History Smoking Status: Former smoker Tobacco Type: Cigarettes packs per day: 0.5; Cigarettes Per Day: 20; Second Hand Exposure: No; Do You Dip or Chew Tobacco: No; Hx Alcohol Use: No Hx Substance Use: No Preferred Language: Serbian Communication Ability: Effective Visual Impairment: No Limitations Hearing Ability: Normal Meteorologist Liaison Required: No Beliefs That Will Affect Care: None marital status: Current Living Situation: Spouse current occupational status: unemployed 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 other: raising a grandchild as well; lives in [place] Feels Safe at Home: Yes Diet: diabetic and low salt during the past year weight has: remained stable Assistive Devices: Walker and Wheelchair Review of Systems A total of 10 systems reviewed and were otherwise negative Physical Exam Vital Signs Vital Signs - 24 hr 12/01/23 06:31 12/01/23 06:37 12/01/23 06:37 Temperature 36.8 C Temperature Source Oral Pulse Rate 118 H 115 H Pulse Rate [Finger] Respiratory Rate 22 22 Respiratory Effort / Characteristics Non-Labored Spontaneous Non-Labored Respiratory Depth Normal Normal Blood Pressure 115/91 Blood Pressure [Left Arm] Blood Pressure Mean 99 Blood Pressure Mean [Left Arm] Pulse Oximetry 98 Oxygen Delivery Method Room Air Sepsis Recent Fever Within 48 Hours No Sepsis New/Unexplained Change in Mental Status No Sepsis Action Taken by Nursing No Action Required 12/01/23 07:25 12/01/23 09:21 12/01/23 09:50 Temperature Temperature Source Pulse Rate 100 H Pulse Rate [Finger] 116 H 84 Respiratory Rate 16 15 21 Respiratory Effort / Characteristics Respiratory Depth Normal Blood Pressure 122/75 Blood Pressure [Left Arm] 146/87 H 178/94 H Blood Pressure Mean 90 Blood Pressure Mean [Left Arm] 106 122 Pulse Oximetry 100 97 97 Oxygen Delivery Method Room Air Room Air Sepsis Recent Fever Within 48 Hours Sepsis New/Unexplained Change in Mental Status Sepsis Action Taken by Nursing 12/01/23 10:00 12/01/23 10:30 12/01/23 10:33 Temperature Temperature Source Pulse Rate 97 H 98 H 102 H Pulse Rate [Finger] Respiratory Rate 15 17 Respiratory Effort / Characteristics Respiratory Depth Blood Pressure 127/76 120/81 Blood Pressure [Left Arm] Blood Pressure Mean 93 94 Blood Pressure Mean [Left Arm] Pulse Oximetry 96 100 Oxygen Delivery Method Room Air Room Air Sepsis Recent Fever Within 48 Hours Sepsis New/Unexplained Change in Mental Status Sepsis Action Taken by Nursing General: Well developed well nourished middle-age female who appears uncomfortable complaint of abdominal pain and nausea in no acute distress, breathing comfortably on room air. Normal speech HEENT: Normal cephalic atraumatic. Pupils are equal round and reactive to light. Extraocular movements are intact. Oropharynx is pink with moist mucous membranes. No swelling of the mouth lips or tongue. Neck: Supple with a midline trachea. No meningeal signs or stiffness, no JVD or bruits. No Stridor. Chest: Clear to auscultation bilaterally. No wheezes or rhonchi. No increased work of breathing. Heart: Regular rate and rhythm without murmurs or gallops. Abdomen: Soft nontender, nondistended without rebound guarding or rigidity. Extremities: No cyanosis clubbing or edema. She has a partial amputation on the right lower extremity. The left lower extremity is pink and well-perfused appearing and I do feel a palpable pulse Spine/Back. Non tender to palpation. No CVA tenderness Skin: Good turgor without rashes. Neurologic exam: Cranial nerves two through 12 are intact. Motor and sensation are intact and symmetrical throughout with the exception of her amputation in the lower extremity Course Administered Medications Discontinued Medications Hydromorphone HCl (Hydromorphone Inj 1 Mg/Ml Syringe) 1 mg IV NOW STA Stop: 12/01/23 07:19 Last Admin: 12/01/23 07:26 Dose: 1 mg Documented By: STEPHANIE Hydromorphone HCl (Hydromorphone Inj 1 Mg/Ml Syringe) 1 mg IV NOW STA Stop: 12/01/23 09:44 Last Admin: 12/01/23 09:47 Dose: 1 mg Documented By: PATRICIA Sodium Chloride (Nss) 1,000 mls @ 999 mls/hr IV .Q1H1M ONE Stop: 12/01/23 08:19 Last Infusion: 12/01/23 08:32 Dose: Infused Documented By: Admin: 12/01/23 07:28 Dose: 999 mls/hr Documented By: STEPHANIE Pantoprazole Sodium 40 mg/ (Syringe) 10 mls @ 5 mls/min IV ONE ONE Stop: 12/01/23 11:01 Last Admin: 12/01/23 11:56 Dose: 5 mls/min Documented By: LAVERN Prochlorperazine (Compazine) 2 mls @ 1 mls/min IV ONE STA Stop: 12/01/23 10:55 Last Admin: 12/01/23 11:27 Dose: 1 mls/min Documented By: PATRICIA Ioversol (Optiray 320 100ml) 94 ml IV ONCE ONE Stop: 12/01/23 09:29 Last Admin: 12/01/23 09:28 Dose: 94 ml Documented By: ALICIA Ondansetron HCl (Ondansetron Inj 2 Mg/Ml 2 Ml Vial) Confirm Administered Dose 4 mg .ROUTE .STK-MED ONE Stop: 12/01/23 06:23 Last Admin: 12/01/23 06:45 Dose: Not Given Documented By: TRE Ondansetron HCl (Ondansetron Inj 2 Mg/Ml 2 Ml Vial) 4 mg IV NOW STA Stop: 12/01/23 06:42 Last Admin: 12/01/23 06:45 Dose: 4 mg Documented By: TRE Medical Decision Making Differential Diagnosis Intra-abdominal process, infection, inflammation, bowel obstruction, diverticulitis Medical Records Attestation: I reviewed the patient's medical records. Home Medications Current Medication List: was personally reviewed by me Laboratory Data Attestation: I reviewed the patient's lab results. 12/01/23 07:23 12/01/23 07:23 Lab Results 12/01/23 12/01/23 12/01/23 Range/Units 07:23 07:31 10:36 WBC 18.23 H (4.8-10.8) K/ul RBC 5.83 H (4.20-5.40) M/uL Hgb 15.6 (12.0-16.0) g/dl Hct 46.2 (37.0-47.0) % MCV 79.2 L (80.0-100.0) fL MCH 26.8 (25.0-34.0) pg MCHC 33.8 (32.0-36.0) g/dL RDW Std Deviation 40.2 (36.4-46.3) fL RDW Coeff of Maria Del Carmen 14.2 (11.5-14.5) % Plt Count 389 (130-400) K/uL MPV 9.9 (9.4-12.4) fL Immature Gran % (Auto) 0.6 % Neut % (Auto) 81.6 % Lymph % (Auto) 12.1 % [place] % (Auto) 5.4 % Eos % (Auto) 0.1 % Baso % (Auto) 0.2 % Neut # (Auto) 14.87 H (1.40-6.50) K/uL Lymph # (Auto) 2.20 (1.20-3.40) K/uL [place] # (Auto) 0.99 H (0.11-0.59) K/uL Eos # (Auto) 0.02 (0.00-0.50) K/uL Baso # (Auto) 0.04 (0.00-0.20) K/uL Immature Gran # (Auto) 0.11 (0.01-0.20) K/uL Sodium 131 L (136-145) mmol/L Potassium 3.5 (3.5-5.1) mmol/L Chloride 95 L (98-107) mmol/L Carbon Dioxide 25 (21-32) mmol/L Anion Gap 11 (3-11) BUN 30 H (6-23) mg/dl Creatinine 0.64 (0.6-1.2) mg/dl Est Cr Clr Drug Dosing 74.9 ml/min Est GFR ( Amer) 113.2 ml/min Est GFR (Non-Af Amer) 97.7 ml/min BUN/Creatinine Ratio 46.9 H (10-20) Glucose 213 H (70-99(Fasting)) mg/dl Lactate 1.1 (0.4-2.0) mmol/L Calcium 10.4 H (8.6-10.3) mg/dl Phosphorus 3.0 (2.5-4.9) mg/dl Magnesium 1.9 (1.7-2.4) mg/dl Total Bilirubin 0.9 (0.2-1.0) mg/dl AST 12 L (13-39) U/L ALT 7 (7-52) U/L Alkaline Phosphatase 75 (34-104) U/L Total Protein 8.0 (6.0-8.3) gm/dl Albumin 4.7 (3.4-5.0) gm/dl Globulin 3.3 (2.5-4.0) gm/dl Albumin/Globulin Ratio 1.4 (0.9-2) Lipase < 3 L (11-82) U/L Procalcitonin < 0.02 (0-0.5) ng/ml Imaging Data Attestation: I personally reviewed and interpreted this imaging study as follows: My Impression: CAT scan of the abdomen pelvisI do not appreciate any bowel obstruction or free air Radiologist's Impression: Abdomen/Pelvis CT 12/01/23 07:53 CT SCAN OF THE ABDOMEN AND PELVIS WITH IV CONTRAST CLINICAL HISTORY: Lower abdominal pain. Leukocytosis. COMPARISON STUDY: Abdominal CT dated 11/28/2023. TECHNIQUE: Following the IV administration of 94 cc of Optiray 320, CT scan of the abdomen and pelvis is performed from the lung bases to the proximal femora. Images are reviewed in the axial, sagittal, and coronal planes. IV contrast was administered without complication. A dose lowering technique was utilized adhering to the principles of ALARA. CT DOSE: 509.3 mGy.cm FINDINGS: Lung bases: The heart is normal in size noting trace pericardial effusion. The coronary arteries are densely calcified. The lung bases are clear. There is a small hiatal hernia. Liver: The contrast-enhanced liver is normal in size, contour, and attenuation. There is mild intrahepatic biliary ductal dilatation. This is unchanged. The hepatic veins and portal veins are patent. Gallbladder: Surgically absent noting clips in the gallbladder fossa. Spleen: Normal in size and attenuation. Pancreas: Moderately atrophic and grossly unremarkable. Adrenal glands: There is nonspecific thickening of the adrenal glands. Kidneys: The contrast enhanced kidneys are normal in size and without hydronephrosis. The kidneys enhance symmetrically. A 12 mm cyst arises from the right upper pole. There is a 3 mm nonobstructing right renal calculus. Abdominal vasculature: The abdominal aorta is normal in course and caliber noting moderate to advanced atherosclerotic calcification. There are several foci of severe stenosis in the right common iliac artery. Near complete to complete thrombosis is seen at the origin of the right internal iliac artery. There is severe stenosis of the right external iliac artery seen on image #256. There is severe stenosis of the partially visualized right superficial femoral artery with only trace flow. Bowel: There is mild to moderate constipation. No bowel obstruction is seen. The appendix is not identified and reported surgically absent. Peritoneum: There is no intraperitoneal free air or abdominal ascites. Lymphadenopathy: None. Pelvic viscera: The bladder is normal as visualized. The uterus is surgically absent. No adnexal lesion is seen. Skeletal structures: The skeletal structures are osteopenic. Postsurgical and spondylotic change is seen in the lumbar spine. No lytic or blastic lesions are seen. IMPRESSION: 1. No acute infectious or inflammatory findings are identified in the abdomen or pelvis. 2. Right-sided nephrolithiasis. 3. Again seen are foci of severe stenosis involving the right common iliac artery, the right external iliac artery, and the right superficial femoral artery. 4. Mild/moderate constipation. 5. Advanced coronary artery atherosclerosis. 6. Additional findings as above. ACT 112: Negative or not required by law. Electronically signed by: Finn Bradshaw M.D. 12/01/2023 10:12 AM MDM Narrative This patient comes in as scribed above. She was placed in room B10. When I evaluate her she seems very uncomfortable. IV access established was given Dilaudid 1 mg IV she is tolerated this well before she given IV fluids blood work was obtained I reviewed her old chart as she was just here a couple days ago for similar. Her white count was more elevated than before and 18,000 range in light of this I did recommend we repeat her CAT scan. This was done and there is no acute finding seen on the CAT scan. She has no significant electrolyte or metabolic abnormality she tells me is been vomiting for a week and has been taking her insulin because of this however her blood sugar is only mildly elevated to 13 and she has no evidence of DKA. I did a lactic acid as well which was normal which would go against sepsis or bowel ischemia. She did require additional IV Dilaudid and does not feel she can go home she says she been sick for a week this is her second visit in the last couple days for similar complaints I do think she should be admitted/observed for hydration and further treatment and evaluation have consulted and discussed case at length with Dr. Silvestre Best , who saw the patient ER, and will admit/observe her for these measures. 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) use of antithrombotics/antiplatelets Discharge Plan Visit Data Chief Complaint: Abdominal Pain Stated Complaint: Abdominal Pain, Vomiting ED Provider: Miguel Randhawa Discharge Problem: Abdominal pain, Nausea & vomiting, Type 2 diabetes mellitus, Acute dehydration, terminal superintendent (current) use of antithrombotics/antiplatelets Patient Disposition: Admitted As Inpatient Discharge Instructions Interventions: ED Discharge Assessment Last Done: 12/01/23 11:47 Discharge Problem: Abdominal pain Qualifiers: Abdominal location: lower abdomen, unspecified Qualified Code(s): R10.30 - Lower abdominal pain, unspecified Nausea & vomiting Qualifiers: Vomiting type: unspecified Qualified Code(s): R11.2 - Nausea with vomiting, unspecified Type 2 diabetes mellitus Qualifiers: Diabetes mellitus watermelon inspector insulin use: with watermelon inspector use Diabetes mellitus complication status: with other specified complication Qualified Code(s): E11.69 - Type 2 diabetes mellitus with other specified complication; Z79.4 - terminal superintendent (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
[2023-12-01 07:50] LABS: Basophils # (auto) 0.04 K/uL (0.00-0.20); Basophils % (auto) 0.2 %; Eosinophils # (auto) 0.02 K/uL (0.00-0.50); Eosinophils % (auto) 0.1 %; Hematocrit (blood only) 46.2 % (37.0-47.0); Hemoglobin 15.6 g/dl (12.0-16.0); Immature Granulocytes # (auto) 0.11 K/uL (0.01-0.20); Immature Granulocytes % (auto) 0.6 %; Lymphocytes % (auto) 12.1 %; Mean Corpuscular Hemoglobin 26.8 pg (25.0-34.0); Mean Corpuscular Hgb Conc 33.8 g/dL (32.0-36.0); Mean Corpuscular Volume 79.2 fL (80.0-100.0); Mean Platelet Volume 9.9 fL (9.4-12.4); Monocytes # (auto) 0.99 K/uL (0.11-0.59); Monocytes % (auto) 5.4 %; Neutrophils # (auto) 14.87 K/uL (1.40-6.50); Neutrophils % (auto) 81.6 %; Platelet Count 389 K/uL (130-400); RDW Coefficient of Variation 14.2 % (11.5-14.5); RDW Standard Deviation 40.2 fL (36.4-46.3); Red Blood Count 5.83 M/uL (4.20-5.40); White Blood Count 18.23 K/ul (4.8-10.8)
[2023-12-01 08:04] LABS: Anion Gap 11 (3-11); BUN Creatinine Ratio 46.9 (10-20); Blood Urea Nitrogen 30 mg/dl (6-23); Calcium 10.4 mg/dl (8.6-10.3); Carbon Dioxide 25 mmol/L (21-32); Chloride 95 mmol/L (98-107); Creatinine Clr Calc Pharmacy 74.9 ml/min; Est GFR (African American) 113.2 ml/min; Est GFR (Non-African American) 97.7 ml/min; Glucose 213 mg/dl (70-99(Fasting)); Potassium 3.5 mmol/L (3.5-5.1); Sodium 131 mmol/L (136-145)
[2023-12-01 08:07] LABS: Alanine Aminotransferase 7 U/L (7-52); Albumin Globulin Ratio 1.4 (0.9-2); Albumin Level 4.7 gm/dl (3.4-5.0); Alkaline Phosphatase 75 U/L (34-104); Aspartate Aminotransferase 12 U/L (13-39); Bilirubin,Total 0.9 mg/dl (0.2-1.0); Globulin 3.3 gm/dl (2.5-4.0); Lipase < 3 U/L (11-82)
[2023-12-01] MEDS: OPTIRAY 320 100ml IV ONE (09:28)
--- NOTE | 2023-12-01 10:15 | CT Scan Report ---
CT SCAN OF THE ABDOMEN AND PELVIS WITH IV CONTRAST CLINICAL HISTORY: Lower abdominal pain. Leukocytosis. COMPARISON STUDY: Abdominal CT dated 11/28/2023. TECHNIQUE: Following the IV administration of 94 cc of Optiray 320, CT scan of the abdomen and pelvi s is performed from the lung bases to the proximal femora. Images are reviewed in the axial, sagittal , and coronal planes. IV contrast was administered without complication. A dose lowering technique wa s utilized adhering to the principles of ALARA. CT DOSE: 509.3 mGy.cm FINDINGS: Lung bases: The heart is normal in size noting trace pericardial effusion. The coronary arteries are densely calcified. The lung bases are clear. There is a small hiatal hernia. Liver: The contrast-enhanced liver is normal in size, contour, and attenuation. There is mild intrahe patic biliary ductal dilatation. This is unchanged. The hepatic veins and portal veins are patent. Gallbladder: Surgically absent noting clips in the gallbladder fossa. Spleen: Normal in size and attenuation. Pancreas: Moderately atrophic and grossly unremarkable. Adrenal glands: There is nonspecific thickening of the adrenal glands. Kidneys: The contrast enhanced kidneys are normal in size and without hydronephrosis. The kidneys enh ance symmetrically. A 12 mm cyst arises from the right upper pole. There is a 3 mm nonobstructing rig ht renal calculus. Abdominal vasculature: The abdominal aorta is normal in course and caliber noting moderate to advance d atherosclerotic calcification. There are several foci of severe stenosis in the right common iliac artery. Near complete to complete thrombosis is seen at the origin of the right internal iliac artery . There is severe stenosis of the right external iliac artery seen on image #256. There is severe jenifer nosis of the partially visualized right superficial femoral artery with only trace flow. Bowel: There is mild to moderate constipation. No bowel obstruction is seen. The appendix is not jie ntified and reported surgically absent. Peritoneum: There is no intraperitoneal free air or abdominal ascites. Lymphadenopathy: None. Pelvic viscera: The bladder is normal as visualized. The uterus is surgically absent. No adnexal lesi on is seen. Skeletal structures: The skeletal structures are osteopenic. Postsurgical and spondylotic change is s een in the lumbar spine. No lytic or blastic lesions are seen. IMPRESSION: 1. No acute infectious or inflammatory findings are identified in the abdomen or pelvis. 2. Right-sided nephrolithiasis. 3. Again seen are foci of severe stenosis involving the right common iliac artery, the right external iliac artery, and the right superficial femoral artery. 4. Mild/moderate constipation. 5. Advanced coronary artery atherosclerosis. 6. Additional findings as above. ACT 112: Negative or not required by law. Electronically signed by: Finn Bradshaw M.D. 12/01/2023 10:12 AM
--- NOTE | 2023-12-01 10:48 | History & Physical Report ---
Date of Service December 01, 2023 Assessment & Plan (1) Abdominal pain: Plan: Recurrent episodes likely related to gastroparesis and constipation No acute pathology on CT, mesenteric arteries patent per Dr Bradshaw, no need for CT angio Patient has chronic opiate use and generally requires high doses during her admission despite clearly concerning this is making her gastroparesis worse she generally improves despite Dilaudid dosing 0.5-1mg IV q3h PRN NPO (advance diet slowly as able), IV fluids while NPO (2) Nausea & vomiting: Plan: Ondansetron 4mg q4h PRN 1st line, Compazine 10mg q6h PRN second line (3) Leukocytosis: Plan: Suspected stress reaction related to vomiting, procalcitonin negative CXR pending UA pending Continue to trend WBC (4) Type 2 diabetes mellitus: Plan: Hemoglobin A1C 7.7 in July 2023, repeat with AM labs Novolog: --Goal BSG Range: Low 110 mg/dL, High 140 mg/dL --Correction Factor: 45 mg/dL/unit --Carbohydrate ratio = 15 g/unit --BSGs ACHS if eating, q6h if npo Will defer on basal dosing unless she starts on a diet (5) HTN (hypertension): Plan: Continue her nifedipine, lisinopril and metoprolol Hydralazine 10mg IV q4h PRN sBP > 180 (6) PAD (peripheral artery disease): Plan: Restart aspirin, clopidogrel once her nausea/vomiting improves tomorrow (7) Depression: Plan: Continue duloxetine 30mg PO daily (8) Stye: Plan: Ciprofloxacin 0.3% OPL BID Warm compress Plan VTE Prophylaxis - Lovenox 40mg SQ daily Diet - NPO, advance diet as tolerated Disposition - observation to med/surg Admission and Anticipated Discharge Date Admission Date: December 01, 2023 History of Present Illness Chief Complaint: Abdominal pain Primary Care Provider: DO Pastora Henaora Inch is a 58 year old female with chronic pain and recurrent abdominal pain, nausea and vomiting who presents to the ER with nausea, vomiting and abdominal pain. She reports her current episode started 1 week ago without any precipitating event or food. No respiratory or urinary symptoms. No change in her bowels. Associated nausea and vomiting. She reports not having anything proper to eat for the last week. Pain severity 10/10, radiates "everywhere". Similar to prior hospitalization with pain but she reports more severe than usual. Allergies Allergy/AdvReac Type Severity Reaction Status Date / Time morphine Allergy Severe blisters Verified 12/01/23 12:03 in mouth Sulfa (Sulfonamide Allergy Severe rash/swelli Verified 12/01/23 12:03 Antibiotics) ng amoxicillin [From Augmentin] Allergy Intermediate itching/power Verified 12/01/23 12:03 h ceftriaxone [From Rocephin] Allergy Intermediate Hives Verified 12/01/23 12:03 clavulanic acid Allergy Intermediate itching/power Verified 12/01/23 12:03 [From Augmentin] h erythromycin base Allergy Intermediate Hives Verified 12/01/23 12:03 vancomycin Allergy Intermediate YULIYA Verified 12/01/23 12:03 SYNDROME---CAN TAKE IF VERY SLOW DRIP. adhesive AdvReac Intermediate DERMABOND Verified 12/01/23 12:03 excoriates skin gabapentin AdvReac Intermediate Nausea Verified 12/01/23 12:03 iron [From Venofer] AdvReac Intermediate Hypertensio Verified 12/01/23 12:03 n Home Medications Medication Instructions Recorded Confirmed Type ropinirole 2 mg tablet 4 mg PO HS 10/19/20 12/01/23 History insulin lispro 100 unit/mL 5 unit subcut TIDM 03/08/22 12/01/23 History subcutaneous pen zolpidem 10 mg tablet 10 mg PO HS PRN Sleep 03/08/22 12/01/23 History insulin glargine 100 unit/mL (3 10 unit subcut HS 10/17/22 12/01/23 History mL) subcutaneous pen (Lantus Solostar U-100 Insulin) albuterol sulfate 90 mcg/actuation 2 puff inhalation QID PRN 05/08/23 12/01/23 History aerosol inhaler Shortness Of Breath Or Wheezing alprazolam 1 mg tablet 1 mg PO TID PRN Anxiety 05/08/23 12/01/23 History docusate sodium 100 mg capsule 100 mg PO BID 05/08/23 12/01/23 History metoprolol succinate 50 mg 50 mg PO QAM 05/08/23 12/01/23 History tablet,extended release 24 hr (Toprol XL) pantoprazole 40 mg tablet,delayed 40 mg PO BID 05/08/23 12/01/23 History release prazosin 1 mg capsule 1 mg PO TID 05/08/23 12/01/23 History clopidogrel 75 mg tablet (Plavix) 75 mg PO DAILY #30 tabs 05/10/23 12/01/23 Rx oxycodone-acetaminophen 7.5 mg-325 2 tab PO Q4 PRN Pain,severe 06/13/23 12/01/23 History mg tablet prochlorperazine maleate 5 mg 5 mg PO TID PRN Nausea 06/13/23 12/01/23 History tablet cyclobenzaprine 10 mg tablet 10 mg PO BID 08/07/23 12/01/23 History lisinopril 20 mg tablet 20 mg PO DAILY #30 tabs 08/09/23 12/01/23 Rx aspirin 81 mg tablet,delayed 81 mg PO DAILY 09/19/23 12/01/23 History release duloxetine 30 mg capsule,delayed 30 mg PO DAILY 09/19/23 12/01/23 History release hydralazine 25 mg tablet 25 mg PO TID 09/19/23 12/01/23 History nifedipine 60 mg tablet,extended 120 mg PO DAILY 09/19/23 12/01/23 History release 24 hr Past Med/Surg History Medical History (Updated 12/01/23 @ 14:17 by Silvester Best MD) PAD (peripheral artery disease) Hypertension Groin pain Foot pain Costochondritis Infection of left great toe due to methicillin resistant Staphylococcus aureus (MRSA) Diastolic CHF COVID-19 Osteomyelitis of great toe of left foot Chronic pain syndrome Opiate dependence Opiate abuse, continuous Acidosis, lactic Acute dehydration Gastroenteritis Sepsis Shortness of breath Opioid dependence Iron deficiency anemia Hypomagnesemia Diabetic peripheral neuropathy Insomnia 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 No issues per anesthesia postop progress note. HTN (hypertension) Anemia Hyponatremia Cellulitis Peripheral neuropathy Benzodiazepine withdrawal Right second toe ulcer Diabetes mellitus type 2, uncontrolled Hyperlipidemia Seizures Gastritis Depression Chronic back pain Nonobstructive atherosclerosis of coronary artery Numbness of lower extremity Hypertriglyceridemia CAD (coronary artery disease) History of tobacco use Benzodiazepine dependence Restless leg syndrome Diabetic neuropathy Abdominal pain Gastroparesis Esophagitis determined by endoscopy GIB (gastrointestinal bleeding) Insulin dependent diabetes mellitus DM2 (diabetes mellitus, type 2) IDDM, A1c 07/2021-11% Surgical History History of amputation of great toe History of right below knee amputation (12/22/21) Right Below Knee Amputation(Right) - Davon Good MD, FACS History of lumbar surgery History of esophagogastroduodenoscopy (EGD) Family History Mother , age 63 Myocardial infarction Father , age 68 or 69 Myocardial infarction Brother S/P CABG (coronary artery bypass graft) Sister Myocardial infarction x 3; she is 57yo Social History Smoking Status: Former smoker Tobacco Type: Cigarettes packs per day: 0.5; Cigarettes Per Day: 20; Second Hand Exposure: No; Do You Dip or Chew Tobacco: No; Hx Alcohol Use: No Hx Substance Use: Yes Prescribed Medications: Marijuana Last Used Substance: Days (ago) Last Used Substance Other:: Medical marijuana Substance Use Type Other:: Medical Marijuana Preferred Language: Sammarinese Communication Ability: Effective Visual Impairment: No Limitations Hearing Ability: Normal Floor Plan Adjuster Required: No Beliefs That Will Affect Care: None marital status: Current Living Situation: Spouse current occupational status: unemployed 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 other: raising a grandchild as well; lives in [place] Feels Safe at Home: Yes Diet: diabetic and low salt during the past year weight has: remained stable Assistive Devices: Walker and Wheelchair Review of Systems Review of Systems: All systems reviewed & are unremarkable except as noted in HPI & below left eye pain and stye for the last week Physical Exam Constitutional: well developed; + not well nourished and no acute distress Eyes: + anicteric sclerae; normal pupil size ENMT: Mouth: + dry oral mucous membranes Respiratory: normal respiratory effort, lungs clear to auscultation Cardiovascular: Rate/Rhythm: regular rhythm and + tachycardic Heart Sounds: no murmur Extremities: normal capillary refill; no pedal edema Gastrointestinal (Abdomen): Inspection/Auscultation: abdomen normal to inspection; abdomen not distended Percussion/Palpation: + abdomen tender (generalized), + guarding and abdomen soft; abdomen not rigid Skin: no rashes, warm and dry Neurologic: moves all extremities and awake; not confused Psychiatric: A+Ox3, euthymic affect Genitourinary: + CVA tenderness (bilateral) Results & Data Results & Data Vital Signs (Past 12 Hours) Vital Signs Temp Pulse Pulse Resp BP BP Pulse Ox 12/01/23 10:33 102 H 12/01/23 09:21 84 15 178/94 H 97 12/01/23 07:25 116 H 16 146/87 H 100 12/01/23 06:37 22 12/01/23 06:37 36.8 C 115 H 22 115/91 98 12/01/23 06:31 118 H O2 Del Method 12/01/23 10:33 12/01/23 09:21 Room Air 12/01/23 07:25 12/01/23 06:37 12/01/23 06:37 Room Air 12/01/23 06:31 Laboratory Results Abnormal lab results 12/01/23 Range/Units 07:23 WBC 18.23 H (4.8-10.8) K/ul RBC 5.83 H (4.20-5.40) M/uL MCV 79.2 L (80.0-100.0) fL Neut # (Auto) 14.87 H (1.40-6.50) K/uL [place] # (Auto) 0.99 H (0.11-0.59) K/uL Sodium 131 L (136-145) mmol/L Chloride 95 L (98-107) mmol/L BUN 30 H (6-23) mg/dl BUN/Creatinine Ratio 46.9 H (10-20) Glucose 213 H (70-99(Fasting)) mg/dl Calcium 10.4 H (8.6-10.3) mg/dl AST 12 L (13-39) U/L Lipase < 3 L (11-82) U/L Diagnostic Findings CT SCAN OF THE ABDOMEN AND PELVIS WITH IV CONTRAST CLINICAL HISTORY: Lower abdominal pain. Leukocytosis. COMPARISON STUDY: Abdominal CT dated 11/28/2023. TECHNIQUE: Following the IV administration of 94 cc of Optiray 320, CT scan of the abdomen and pelvis is performed from the lung bases to the proximal femora. Images are reviewed in the axial, sagittal, and coronal planes. IV contrast was administered without complication. A dose lowering technique was utilized adhering to the principles of ALARA. CT DOSE: 509.3 mGy.cm FINDINGS: Lung bases: The heart is normal in size noting trace pericardial effusion. The c oronary arteries are densely calcified. The lung bases are clear. There is a small hiatal hernia. Liver: The contrast-enhanced liver is normal in size, contour, and attenuation. There is mild intrahepatic biliary ductal dilatation. This is unchanged. The hepatic veins and portal veins are patent. Gallbladder: Surgically absent noting clips in the gallbladder fossa. Spleen: Normal in size and attenuation. Pancreas: Moderately atrophic and grossly unremarkable. Adrenal glands: There is nonspecific thickening of the adrenal glands. Kidneys: The contrast enhanced kidneys are normal in size and without hydronephrosis. The kidneys enhance symmetrically. A 12 mm cyst arises from the right upper pole. There is a 3 mm nonobstructing right renal calculus. Abdominal vasculature: The abdominal aorta is normal in course and caliber noting moderate to advanced atherosclerotic calcification. There are several foci of severe stenosis in the right common iliac artery. Near complete to complete thrombosis is seen at the origin of the right internal iliac artery. There is severe stenosis of the right external iliac artery seen on image #256. There is severe stenosis of the partially visualized right superficial femoral artery with only trace flow. Bowel: There is mild to moderate constipation. No bowel obstruction is seen. The appendix is not identified and reported surgically absent. Peritoneum: There is no intraperitoneal free air or abdominal ascites. Lymphadenopathy: None. Pelvic viscera: The bladder is normal as visualized. The uterus is surgically absent. No adnexal lesion is seen. Skeletal structures: The skeletal structures are osteopenic. Postsurgical and spondylotic change is seen in the lumbar spine. No lytic or blastic lesions are seen. IMPRESSION: 1. No acute infectious or inflammatory findings are identified in the abdomen or pelvis. 2. Right-sided nephrolithiasis. 3. Again seen are foci of severe stenosis involving the right common iliac artery, the right external iliac artery, and the right superficial femoral artery. 4. Mild/moderate constipation. 5. Advanced coronary artery atherosclerosis. 6. Additional findings as above. Medications Administered ER Medications Given: Ondansetron 4mg IV Dilaudid 1mg IV x2 Normal saline 1L bolus ECG Rate (beats per minute): 101 Rhythm: sinus tachycardia Findings: no acute ischemic change Comparison ECG Date: from (November 28, 2023) Change: no significant change Code Status & VTE Plan Code Status Full VTE Prophylaxis Plan VTE Prophylaxis will be ordered: Yes PG Care Time/CCT Total # of Minutes Spent Total Time Spent with Patient: Total time spent is greater than 50% in coordination of care (as documented) at patient's floor/unit and/or counseling patient: Coding Level of Care Code 11546 INT INP/OBS CARE 2/55MIN Diagnoses Abdominal pain R10.30 Abdominal location: lower abdomen, unspecified Nausea & vomiting R11.2 Vomiting type: unspecified Leukocytosis D72.829 Type 2 diabetes mellitus E11.69; Z79.4 Diabetes mellitus complication status: with other specified complication Diabetes mellitus intermediate insulin use: with terminal superintendent use HTN (hypertension) I10 PAD (peripheral artery disease) I73.9 Depression F32.9 Stye H00.019 (1) Abdominal pain Abdominal location: lower abdomen, unspecified Qualified Code(s): R10.30 - Lower abdominal pain, unspecified (2) Nausea & vomiting Vomiting type: unspecified Qualified Code(s): R11.2 - Nausea with vomiting, unspecified (4) Type 2 diabetes mellitus Diabetes mellitus complication status: with other specified complication Diabetes mellitus intermediate insulin use: with terminal superintendent use Qualified Code(s): E11.69 - Type 2 diabetes mellitus with other specified complication; Z79.4 - terminal superintendent (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
[2023-12-01 11:17] LABS: Magnesium 1.9 mg/dl (1.7-2.4)
[2023-12-01] MEDS: PROCHLORPERAZINE 2 ML IV STA (11:27)
[2023-12-01] MEDS: PANTOprazole 40 MG in SYRINGE 0 ML IV ONE (11:56)
[2023-12-01 12:42] LABS: Appearance Urine Clear (Clear); Bacteria Urine Automated 2+ (None Seen); Bilirubin Urine Negative (Negative); Blood Urine Negative (Negative); Color Urine Yellow; Glucose Urine UA Negative (Negative); Ketones Urine 1+ (Negative); Leukocyte Esterase Urine Negative (Negative); Nitrite Urine Negative (Negative); Protein Urine 3+ (Negative); RBC Urine Automated 0-2 /hpf (0-2); Specific Gravity Urine > 1.045 (1.000-1.030); Urobilinogen Urine Negative (Negative); WBC Urine Automated 0-5 /hpf (0-5)
[2023-12-01] MEDS ORDERED: PROCHLORPERAZINE 10 MG in SYRINGE 8 ML IV PRN (12:51)
[2023-12-01] MEDS ORDERED: hydrALAZINE HCL 20 MG/ML VIAL IV PRN (13:15)
[2023-12-01] MEDS: HYDROmorphone INJ 0.5 MG/0.5 ML SYR IV PRN (13:22)
[2023-12-01] MEDS: SODIUM CHLORIDE 0.9% 1,000 ML IV SCH (13:40)
[2023-12-01] MEDS ORDERED: CARBOHYDRATES FOR HYPOGLYCEMIA PO PRN (13:53)
[2023-12-01] MEDS ORDERED: GLUCAGON FOR INJ 1 MG VIAL SQ PRN (13:53)
[2023-12-01] MEDS ORDERED: DEXTROSE 50% 50 ML SYRINGE IV PRN (13:53)
[2023-12-01] MEDS ORDERED: GLUCOSE 10 TAB/TUBE PO PRN (13:53)
[2023-12-01] MEDS ORDERED: GLUCOSE 40% GEL 15 GM TUBE PO PRN (13:53)
[2023-12-01] MEDS: PRAZOSIN HCL 1 MG CAP PO SCH (14:23)
[2023-12-01] MEDS: lisinopril 20 MG TAB PO SCH (14:24)
[2023-12-01] MEDS: DULoxetine HCL 30 MG CAP PO SCH (14:24)
[2023-12-01] MEDS: NIFEdipine EXTENDED REL 30 MG TABCR PO SCH (14:24)
[2023-12-01] MEDS: METOPROLOL SUCC 50MG EXT REL TAB PO SCH (14:24)
[2023-12-01] MEDS ORDERED: Nursing to Pharmacy Communication SCH ×2 (14:30→17:45)
--- NOTE | 2023-12-01 15:32 | XRay Report ---
SINGLE VIEW CHEST CLINICAL HISTORY: Systemic inflammatory response syndrome FINDINGS: An AP, portable, upright chest radiograph is compared to study dated 10/16/2023 and correlate d with chest CT dated 10/02/2022. The cardiomediastinal silhouette is unremarkable. Chronic interstiti al thickening is similar to previous. The lungs and pleural spaces are clear. No pneumothorax is seen . The skeletal structures are osteopenic. The bony thorax is grossly intact. IMPRESSION: No active disease in the chest. ACT 112: Negative or not required by law. Electronically signed by: Finn Bradshaw M.D. 12/01/2023 3:30 PM
[2023-12-01] MEDS ORDERED: INSULIN ASPART PER UNIT CHARGE SC SCH ×2 (16:30→18:00)
[2023-12-01] MEDS: ONDANSETRON INJ 2 MG/ML 2 ML VIAL IV PRN (18:25)
[2023-12-01] MEDS: CIPROFLOXACIN / D5W 400 MG/200 ML BAG IV SCH (18:28)
[2023-12-01] MEDS: ACETAMINOPHEN 1,000 MG/100 ML VIAL IV PRN (20:05)
[2023-12-01] MEDS: CIPROFLOXACIN HCL 3.5 GM TUBE OPL SCH (20:06)
[2023-12-01] MEDS: ENOXAPARIN INJ 40 MG/0.4 ML SYR SQ SCH (20:06)
[2023-12-01] MEDS: PANTOprazole 40 MG in SYRINGE 0 ML IV SCH (20:07)
[2023-12-01] MEDS: rOPINIRole HCL 2 MG TABLET PO SCH (20:07)
[2023-12-01] MEDS: DOCUSATE SODIUM 100 MG CAP PO SCH (21:19)
[2023-12-01] MEDS: INSULIN ASPART PER UNIT CHARGE SC SCH (21:19)
[2023-12-01] MEDS: SODIUM CHLORIDE 0.9% 500 ML IV ONE (23:11)
[2023-12-02] MEDS: HYDROmorphone INJ 0.5 MG/0.5 ML SYR IV STA ×2 (00:42→02:32)
[2023-12-02] MEDS: HYDROmorphone INJ 0.5 MG/0.5 ML SYR IV PRN (05:07)
[2023-12-02 06:34] LABS: Basophils # (auto) 0.05 K/uL (0.00-0.20); Basophils % (auto) 0.4 %; Eosinophils # (auto) 0.15 K/uL (0.00-0.50); Eosinophils % (auto) 1.3 %; Hematocrit (blood only) 37.2 % (37.0-47.0); Hemoglobin 12.1 g/dl (12.0-16.0); Immature Granulocytes # (auto) 0.05 K/uL (0.01-0.20); Immature Granulocytes % (auto) 0.4 %; Lymphocytes # (auto) 2.36 K/uL (1.20-3.40); Lymphocytes % (auto) 19.7 %; Mean Corpuscular Hemoglobin 26.4 pg (25.0-34.0); Mean Corpuscular Hgb Conc 32.5 g/dL (32.0-36.0); Mean Platelet Volume 10.3 fL (9.4-12.4); Monocytes # (auto) 0.75 K/uL (0.11-0.59); Monocytes % (auto) 6.3 %; Neutrophils # (auto) 8.64 K/uL (1.40-6.50); Neutrophils % (auto) 71.9 %; Platelet Count 275 K/uL (130-400); RDW Coefficient of Variation 14.1 % (11.5-14.5); RDW Standard Deviation 41.3 fL (36.4-46.3); Red Blood Count 4.59 M/uL (4.20-5.40)
[2023-12-02 06:58] LABS: Albumin Globulin Ratio 1.6 (0.9-2); Albumin Level 3.9 gm/dl (3.4-5.0); BUN Creatinine Ratio 46.2 (10-20); Bilirubin,Total 0.5 mg/dl (0.2-1.0); Calcium 8.9 mg/dl (8.6-10.3); Creatinine Clr Calc Pharmacy 122.8 ml/min; Est GFR (African American) 133.2 ml/min; Globulin 2.4 gm/dl (2.5-4.0); Magnesium 1.7 mg/dl (1.7-2.4); Phosphorus 2.6 mg/dl (2.5-4.9); Potassium 3.3 mmol/L (3.5-5.1); Total Protein 6.3 gm/dl (6.0-8.3)
[2023-12-02 07:58] LABS: Estimated Average Glucose 157 mg/dl; Hemoglobin A1C 7.1 % (4.5-5.6)
[2023-12-02] MEDS: ASPIRIN 81 MG ECTAB PO SCH (08:22)
[2023-12-02] MEDS: CLOPIDOGREL BISULFATE 75 MG TAB PO SCH (08:23)
[2023-12-02] MEDS: NSS + 20MEQ KCL 20 MEQ/1,000 ML BAG IV SCH (09:14)
--- NOTE | 2023-12-02 15:01 | Hospitalist Progress Note ---
Date of Service December 02, 2023 Assessment & Plan (1) Abdominal pain: Plan: Recurrent episodes likely related to gastroparesis and constipation. No acute pathology on CT, mesenteric arteries patent per Dr Bradshaw, no need for CT angio. (2) Nausea & vomiting: Plan: Recurrent. Scheduled parenteral Reglan. Clear liquids for now. Advance as tolerated. (3) Leukocytosis: Plan: Suspected stress reaction related to vomiting. Procalcitonin negative. Serial labs (4) Type 2 diabetes mellitus: Plan: Hemoglobin A1C 7.7 in July 2023. Sliding scale coverage. Eventual advancement to ADA diet. (5) HTN (hypertension): Plan: Stable. Continue nifedipine, lisinopril and metoprolol (6) PAD (peripheral artery disease): Plan: Restart aspirin, clopidogrel once her nausea/vomiting improves (7) Depression: Plan: Continue duloxetine 30mg PO daily (8) Stye: Plan: Ciprofloxacin 0.3% OPL BID. Warm compress Plan Eventual discharge to home sometime this coming week Admission and Anticipated Discharge Date Admission Date: December 01, 2023 Subjective Alert and oriented. She is complaining of nausea vomiting and watery diarrhea. Stool Bio[employer] and C. difficile toxin assay ordered. Scheduled parenteral Reglan ordered along with Metamucil. Potassium added to the IV for mild hypokalemia. She remains on clear liquid diet and IV fluids. Review of Systems 2 Review of Systems: Constitutional-no fever or chills ENT-no blurred vision, no double vision, no epistaxis, no sore throat Respiratory-no cough, no wheezing, no shortness of breath Cardiac-no palpitations, no chest pain, no syncope GI-nausea, vomiting, loose stools. No melena. No hematochezia -no urinary retention, no urinary incontinence, no dysuria, no hematuria Musculoskeletal-no joint pain, no muscle tenderness Skin-no bruising, no rashes, no pruritus Neuro-no isolated weakness, no paresthesia, no weakness Psych-no depression, no anxiety Physical Exam 2 Physical Exam: General-alert and oriented x3, no fever, no chills HEENT-head atraumatic and normocephalic, pupils equal and reactive to light, extraocular muscles intact Neck-no lymphadenopathy or thyromegaly, trachea midline Chest-clear to auscultation. No rales, wheezing or rhonchi Cardiac-regular rate and rhythm, normal S1 and S2 Abdomen-normal bowel sounds, no hepatosplenomegaly. Mild diffuse tenderness Extremities-no cyanosis, clubbing, or edema Neuro-cranial nerves II through XII intact, motor and sensory function within normal limits, strength symmetrical, no focal deficits Psych-normal affect, normal mood Results & Data Results & Data Vital Signs (Past 12 Hours) Vital Signs Temp Pulse Resp BP BP Pulse Ox O2 Del Method 12/02/23 07:22 36.6 C 69 18 131/65 98 Room Air 12/02/23 05:02 116/64 Laboratory Results 12/02/23 05:25 12/02/23 05:25 PG Care Time/CCT Total # of Minutes Spent Total Time Spent with Patient: Total time spent is greater than 50% in coordination of care (as documented) at patient's floor/unit and/or counseling patient: Coding Level of Care Code 12056 SUB INP/OBS CARE 3/50MIN Diagnoses Abdominal pain R10.30 Abdominal location: lower abdomen, unspecified Nausea & vomiting R11.2 Vomiting type: unspecified Leukocytosis D72.829 Type 2 diabetes mellitus E11.69; Z79.4 Diabetes mellitus complication status: with other specified complication Diabetes mellitus termite renewal inspector insulin use: with termite renewal inspector use HTN (hypertension) I10 PAD (peripheral artery disease) I73.9 Depression F32.9 Stye H00.019 (1) Abdominal pain Abdominal location: lower abdomen, unspecified Qualified Code(s): R10.30 - Lower abdominal pain, unspecified (2) Nausea & vomiting Vomiting type: unspecified Qualified Code(s): R11.2 - Nausea with vomiting, unspecified (4) Type 2 diabetes mellitus Diabetes mellitus complication status: with other specified complication D iabetes mellitus termite renewal inspector insulin use: with termite renewal inspector use Qualified Code(s): E 11.69 - Type 2 diabetes mellitus with other specified complication; Z79.4 - senior 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
[2023-12-02] MEDS: METOCLOPRAMIDE HCL INJ 5 MG/ML 2 ML VIAL IV SCH (15:21)
[2023-12-02] MEDS: PSYLLIUM or GUAR GUM FIBER 4GM PACKET PO SCH (15:40)
[2023-12-02] MEDS: ZOLPIDEM TARTRATE 10 MG TAB PO PRN (20:41)
--- NOTE | 2023-12-02 22:21 | Electrocardiogram Report ---
Test Reason : Blood Pressure : / mmHG Vent. Rate : 101 BPM Atrial Rate : 101 BPM P-R Int : 140 ms QRS Dur : 084 ms QT Int : 338 ms P-R-T Axes : 065 055 080 degrees QTc Int : 438 ms Sinus tachycardia Anterior infarct (cited on or before 01-DEC-2023) Abnormal ECG When compared with ECG of 28-NOV-2023 21:51, Questionable change in initial forces of Anterior leads Confirmed by Aakash Ruff ([id number]) on 12/02/2023 10:20:37 PM Referred By: REFERRED SELF Confirmed By:Aakash Ruff
[2023-12-03] MEDS: CYCLOBENZAPRINE HCL 10 MG TAB PO PRN (03:10)
[2023-12-03 07:13] LABS: Basophils # (auto) 0.08 K/uL (0.00-0.20); Basophils % (auto) 0.7 %; Eosinophils # (auto) 0.46 K/uL (0.00-0.50); Hematocrit (blood only) 34.9 % (37.0-47.0); Hemoglobin 11.8 g/dl (12.0-16.0); Immature Granulocytes # (auto) 0.04 K/uL (0.01-0.20); Immature Granulocytes % (auto) 0.3 %; Lymphocytes # (auto) 3.16 K/uL (1.20-3.40); Lymphocytes % (auto) 27.4 %; Mean Corpuscular Hemoglobin 26.8 pg (25.0-34.0); Mean Corpuscular Hgb Conc 33.8 g/dL (32.0-36.0); Mean Corpuscular Volume 79.1 fL (80.0-100.0); Mean Platelet Volume 10.4 fL (9.4-12.4); Monocytes # (auto) 0.82 K/uL (0.11-0.59); Monocytes % (auto) 7.1 %; Neutrophils # (auto) 6.98 K/uL (1.40-6.50); Neutrophils % (auto) 60.5 %; Platelet Count 286 K/uL (130-400); RDW Coefficient of Variation 13.8 % (11.5-14.5); RDW Standard Deviation 39.8 fL (36.4-46.3); Red Blood Count 4.41 M/uL (4.20-5.40); White Blood Count 11.54 K/ul (4.8-10.8)
[2023-12-03 07:34] LABS: BUN Creatinine Ratio 17.6 (10-20); Creatinine Clr Calc Pharmacy 140.9 ml/min; Est GFR (African American) 139.4 ml/min; Est GFR (Non-African American) 120.3 ml/min; Potassium 3.6 mmol/L (3.5-5.1)
[2023-12-03] MEDS ORDERED: ALBUTEROL HFA 8 GM INHALER INH PRN (09:54)
[2023-12-03] MEDS: hydrALAZINE HCL 25 MG TAB PO SCH (11:22)
[2023-12-03] MEDS: oxyCODONE HCL IR 5 MG TAB (IMMEDIATE RELEASE) PO PRN (15:00)
--- NOTE | 2023-12-03 16:26 | Hospitalist Progress Note ---
Date of Service December 03, 2023 Assessment & Plan (1) Back pain: Plan: Presented with acute on chronic worsening mid and lower back pain with radiation around left flank to left groin and down left LE CT a/p negative for acute No UTI or ureterolithiasis Requiring large amounts of opioids as usual for her-takes 15mg of oxycodone every 6 hours at home Check MRI T and L-spines Consider Ortho spine vs Pain Management consult if anything found on imaging Added po oxycodone prn and can continue IV dilaudid prn (2) Nausea & vomiting: Plan: Acute on chronic-vomits every single day at home for years, usually worse in the AM. Seems to be worse with acute back pain Was thought to have gastroparesis presumed, no GES to review Continue scheduled reglan, compazine prn Tolerating some regular food here and taking po pills but has lost 16 kg in the last 1.[address] abd/pel nothing acute to explain this Has had EGDs as outpt and at other facilities and says no problems found Continue PPI but change from IV to po (3) Leukocytosis: Plan: Suspected stress reaction related to vomiting. Procalcitonin negative Has improved down to 11 from 18 on admission Blood cxs remain NGTD Ur cx mixed adithya and UA contaminated with epis, she had no urinary symptoms dc Cipro IV CXR negative, CT A/P negative Follow CBC (4) HTN (hypertension): Plan: BPs elevated here Continue nifedipine, metoprolol, and resume hydralazine continue to hold lisinopril and prazosin for now (5) Type 2 diabetes mellitus: Plan: Hemoglobin A1C 7.1% here Continue Novolog SSI as needed Is on Lantus at home 10 units daily but holding here as minimal po intake (6) Chronic pain syndrome: Plan: typically on high doses of oxycodone daily, Cymbalta added back on oxycodone 10mg po q4h prn pain to be used before IV pain meds (7) PAD (peripheral artery disease): Plan: With multifocal severe stenoses in RLE seen on CT abd/pel she had angiogram with balloon angioplasty performed in left LE in 09/2023 at outside [facility] Resume aspirin, clopidogrel Should also be on statin (8) Depression: Plan: Continue duloxetine 30mg PO daily and consider increasing to 60mg daily for chronic pain continue Ambien prn insomnia (9) Stye: Plan: Ciprofloxacin 0.3% OPL BID. Warm compress (10) Restless leg syndrome: Plan: continue home requip Plan DVT proph-Lovenox SQ Dispo-continued stay Admission and Anticipated Discharge Date Admission Date: December 03, 2023 Subjective Pt has constant nausea and vomiting for many months to years but worse in the last few weeks, has lost 20+ kg in the last 1.5 years. Pain is in the mid back and wraps around left ribs and down left groin and into left thigh and sometimes into left leg. LLE sometimes gives out and she did fall because of it the other day. Physical Exam Constitutional: well developed Respiratory: normal respiratory effort, lungs clear to auscultation Cardiovascular: RRR, no murmur, no edema Vessels: dorsalis pedis pulses present (on left) Gastrointestinal (Abdomen): normal bowel sounds, soft, nontender, no hepatosplenomegaly Musculoskeletal: Extremities: + extremities abnormal to inspection (Rt BKA,left MT amputation) Results & Data Results & Data Vital Signs (Past 12 Hours) Vital Signs Temp Pulse Resp BP Pulse Ox O2 Del Method 12/03/23 16:08 172/89 H 12/03/23 14:57 37.2 C 72 16 182/87 H 97 Room Air 12/03/23 12:25 164/76 H 12/03/23 11:20 203/82 H 12/03/23 07:37 36.6 C 71 16 175/79 H 95 Room Air Laboratory Results CBC, BMP, Ur cx, blood cx reviewed PG Care Time/CCT Total # of Minutes Spent Total Time Spent with Patient: Total time spent is greater than 50% in coordination of care (as documented) at patient's floor/unit and/or counseling patient: Coding Level of Care Code 97137 SUB INP/OBS CARE 3/50MIN Diagnoses Back pain M54.9 Nausea & vomiting R11.2 Vomiting type: unspecified Leukocytosis D72.829 HTN (hypertension) I10 Type 2 diabetes mellitus E11.69; Z79.4 Diabetes mellitus complication status: with other specified complication Diabetes mellitus mcfp insulin use: with mcfp use Chronic pain syndrome G89.4 PAD (peripheral artery disease) I73.9 Depression F32.9 Stye H00.019 Restless leg syndrome G25.81 (2) Nausea & vomiting Vomiting type: unspecified Qualified Code(s): R11.2 - Nausea with vomiting, unspecified (5) Type 2 diabetes mellitus Diabetes mellitus complication status: with other specified complication Diabetes mellitus terminal clerk insulin use: with terminal clerk use Qualified Code(s): E11.69 - Type 2 diabetes mellitus with other specified complication; Z79.4 - alf (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
[2023-12-03] MEDS: PANTOprazole 40 MG TAB PO SCH (21:08)
[2023-12-04 06:52] LABS: Basophils # (auto) 0.07 K/uL (0.00-0.20); Basophils % (auto) 0.6 %; Eosinophils # (auto) 0.56 K/uL (0.00-0.50); Eosinophils % (auto) 4.6 %; Hematocrit (blood only) 39.8 % (37.0-47.0); Immature Granulocytes # (auto) 0.04 K/uL (0.01-0.20); Immature Granulocytes % (auto) 0.3 %; Lymphocytes % (auto) 27.9 %; Mean Corpuscular Hemoglobin 26.5 pg (25.0-34.0); Mean Corpuscular Hgb Conc 32.7 g/dL (32.0-36.0); Mean Corpuscular Volume 81.1 fL (80.0-100.0); Mean Platelet Volume 10.5 fL (9.4-12.4); Monocytes # (auto) 0.96 K/uL (0.11-0.59); Monocytes % (auto) 7.9 %; Neutrophils # (auto) 7.14 K/uL (1.40-6.50); Neutrophils % (auto) 58.7 %; Platelet Count 311 K/uL (130-400); RDW Standard Deviation 40.9 fL (36.4-46.3); Red Blood Count 4.91 M/uL (4.20-5.40); White Blood Count 12.17 K/ul (4.8-10.8)
[2023-12-04 07:11] LABS: BUN Creatinine Ratio 23.8 (10-20); Calcium 9.8 mg/dl (8.6-10.3); Creatinine Clr Calc Pharmacy 114.1 ml/min; Est GFR (Non-African American) 112.2 ml/min; Potassium 3.8 mmol/L (3.5-5.1)
--- NOTE | 2023-12-04 07:47 | Magnetic Resonance Report ---
THORACIC SPINE MRI HISTORY: mid back pain with left radiculopathy TECHNIQUE: Multiplanar multisequence MRI of the thoracic spine was performed without the use of contr ast. COMPARISON: None. FINDINGS: Mild motion artifact results in suboptimal evaluation. No fracture or subluxation. Paravertebral soft tissues are unremarkable. Mild disc space narrowing within the mid thoracic spine most pronounced at the T6-T7 and T7-T8 levels. The thoracic spinal cord appears to demonstrate a normal signal intensit y but is suboptimally assessed due to the motion artifact. There is a 4 mm focal central disc protrus ion at T7-T8 which abuts but does not significantly deform the anterior thoracic spinal cord. No sign ificant central canal or neural foraminal narrowing at this level. Small broad-based posterior disc b ulges at T6-T7 and T9-T10 without significant central canal or neural foraminal narrowing. A 12 mm T2 hyperintense exophytic lesion within the right kidney favors a cyst. IMPRESSION: 1. Mild motion artifact results in suboptimal evaluation of the thoracic spine. 2. No acute fracture or subluxation. 3. Mild degenerative disc disease as described above most pronounced at the T7-T8 level which demonst rates a 4 mm focal central disc protrusion. This abuts but does not significantly deform the thoracic spinal cord. 4. No significant central canal or neural foraminal narrowing. ACT 112: Negative or not required by law. Electronically signed by: Ernst Murray M.D. 12/04/2023 7:45 AM
--- NOTE | 2023-12-04 08:35 | Magnetic Resonance Report ---
MRI OF THE LUMBAR SPINE WITHOUT CONTRAST CLINICAL HISTORY: mid-lower back pain with left radiculopathy COMPARISON STUDY: Lumbar spine radiographs October 20, 2020. TECHNIQUE: Utilizing a 1.5 Sariah magnet and dedicated coil, multiplanar, multiecho imaging of the [facility] spine was performed without IV contrast. FINDINGS: For purposes of numbering on this exam, the L5-S1 disc space is assigned to axial image 27 of 30. The re are postoperative findings consistent with L5-S1 decompression and fusion. There is 4 mm of linda listhesis of L4 and L5 and 4 mm anterolisthesis of L5 on S1. There is no lumbar spine fracture. No ma rrow replacement. No intracanalicular mass or fluid collection is present. Conus terminates at the lo wer L1 level. Paravertebral soft tissues are unremarkable. L1-2: The central canal and neural foramen are patent. There is mild facet arthrosis. L2-3: The central canal and neural foramen are patent. There is moderate facet arthrosis. L3-4: There is moderate facet arthrosis. The central canal and neural foramen L4-5: One anterolisthesis is noted. There is facet arthrosis with ligamentous hypertrophy. The centra l canal is patent. Severe left neural foraminal stenosis is noted. This is due to facet arthrosis as well as a left foraminal disc protrusion. There is moderate right neural foraminal stenosis. L5-S1: Grade I anterolisthesis is noted. The central canal is patent. There is moderate bilateral ricarda ral foraminal stenosis. IMPRESSION: 1. Status post L5-S1 decompression and fusion. 2. Grade I anterolisthesis of L4 and L5 and L5 on S1. 3. No central canal stenosis. Moderate multilevel facet arthrosis and mild degenerative disc disease. 4. Multilevel neural foraminal stenosis, most pronounced at the left L4-L5 neural foramen due to a le ft foraminal disc protrusion, as described above. ACT 112: Negative or not required by law. Electronically signed by: Wilver Powell M.D. 12/04/2023 8:33 AM
[2023-12-04] MEDS: lisinopril 20 MG TAB PO SCH (08:40)
--- NOTE | 2023-12-04 12:18 | Hospitalist Progress Note ---
Date of Service December 04, 2023 Assessment & Plan (1) Back pain: Plan: Presented with acute on chronic worsening mid and lower back pain with radiation around left flank to left groin and down left LE CT a/p negative for acute No UTI or ureterolithiasis Requiring large amounts of opioids here with IV Dilaudid and oral oxycodone- takes 15mg of oxycodone every 6 hours at home on a regular basis MRI T and L-spines performed on 12/03 do show severe left neural foraminal stenosis due to facet arthrosis as well as a left foraminal disc protrusion. There is moderate right neural foraminal stenosis. She does have a previous L5-S1 decompression and fusion Consult Ortho spine for further opinion to see if surgical intervention would relieve her ongoing severe pain Continue po oxycodone prn and can continue IV dilaudid prn (2) Nausea & vomiting: Plan: Acute on chronic-vomits every single day at home for years, usually worse in the AM. Seems to be worse with acute back pain Presumed to have gastroparesi, no GES to review Continue scheduled reglan, compazine prn Tolerating some regular food here and taking po pills but has lost 16 kg in the last 1.[address] abd/pel nothing acute to explain this Has had EGDs as outpt and at other facilities and says no problems found Continue PPI po Ensure bowels moving regularly (3) Leukocytosis: Plan: Suspected stress reaction related to vomiting. Procalcitonin negative Has improved down to 11 from 18 on admission, but now back to 12 and steady, afebrile Blood cxs remain NGTD Ur cx mixed adithya and UA contaminated with epis, she had no urinary symptoms Discontinued Cipro IV which she received for 2 days for UTI CXR negative, CT A/P negative, MRIs of the spine do not show evidence of osteomyelitis or discitis but will await orthopedic surgery opinion Follow CBC and if continues to worsen, will do further evaluation for infection (4) HTN (hypertension): Plan: BPs continue to be elevated here Continue nifedipine, metoprolol, and hydralazine Resume home lisinopril and continue to hold prazosin for now (5) Type 2 diabetes mellitus: Plan: Hemoglobin A1C 7.1% here Continue Novolog SSI as needed Is on Lantus at home 10 units daily but holding here as minimal po intake (6) Chronic pain syndrome: Plan: typically on high doses of oxycodone daily, Cymbalta Continue oxycodone 10mg po q4h prn pain to be used before IV pain meds (7) PAD (peripheral artery disease): Plan: With multifocal severe stenoses in RLE seen on CT abd/pel she had angiogram with balloon angioplasty performed in left LE in 09/2023 at outside [facility] Continue aspirin, clopidogrel for now, but if needing back surgery, would have to hold these Should also be on statin (8) Depression: Plan: Continue duloxetine 30mg PO daily and consider increasing to 60mg daily for chronic pain continue Ambien prn insomnia (9) Stye: Plan: Ciprofloxacin 0.3% OPL BID. Warm compress (10) Restless leg syndrome: Plan: continue home requip Plan DVT proph-Lovenox SQ Dispo-continued stay Admission and Anticipated Discharge Date Admission Date: December 03, 2023 Subjective Pt continues to report nausea but is eating a grill chef salad when I walked in the room. She has not moved her bowels since 2 days ago. Still complains of significant left-sided back pain radiating down into her leg. Physical Exam Constitutional: well developed Respiratory: normal respiratory effort, lungs clear to auscultation Cardiovascular: RRR, no murmur, no edema Gastrointestinal (Abdomen): normal bowel sounds, soft, nontender, no hepatosplenomegaly Musculoskeletal: Extremities: + extremities abnormal to inspection (Rt BKA,left MT amputation) Results & Data Results & Data Vital Signs (Past 12 Hours) Vital Signs Temp Pulse Resp BP Pulse Ox O2 Del Method 12/04/23 10:33 136/74 12/04/23 07:36 36.7 C 80 18 203/78 H 95 Room Air Laboratory Results CBC, BMP reviewed PG Care Time/CCT Total # of Minutes Spent Total Time Spent with Patient: Total time spent is greater than 50% in coordination of care (as documented) at patient's floor/unit and/or counseling patient: Coding Level of Care Code 58798 SUB INP/OBS CARE 2/35MIN Diagnoses Back pain M54.9 Nausea & vomiting R11.2 Vomiting type: unspecified Leukocytosis D72.829 HTN (hypertension) I10 Type 2 diabetes mellitus E11.69; Z79.4 Diabetes mellitus complication status: with other specified complication Diabetes mellitus nursing home insulin use: with nursing home use Chronic pain syndrome G89.4 PAD (peripheral artery disease) I73.9 Depression F32.9 Stye H00.019 Restless leg syndrome G25.81 (2) Nausea & vomiting Vomiting type: unspecified Qualified Code(s): R11.2 - Nausea with vomiting, unspecified (5) Type 2 diabetes mellitus Diabetes mellitus complication status: with other specified complication Diabetes mellitus termite helper insulin use: with nursing home use Qualified Code(s): E11.69 - Type 2 diabetes mellitus with other specified complication; Z79.4 - nursing home (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
--- NOTE | 2023-12-04 14:59 | Orthopedic Consultation ---
Date of Consultation December 04, 2023 Assessment & Plan (1) Lumbar disc herniation with radiculopathy: MRI lumbar spine available for review demonstrates evidence of spondylolisthesis L4-5 with foraminal disc herniation on the left. There is evidence of solid fusion L5-S1. Plan had a long discussion with this patient today regarding her clinical presentation MRI findings and treatment plan. At this point I be very hesitant to recommend any surgical intervention in light of her past medical history and risk for complication. We will consult interventional pain management to see if a combination of appropriate medical management and injections may provide some relief. History of Present Illness Reason for Consultation: Back and left leg pain Attending Physician: Sangeeta Ko MD History of Present Illness This is a 58-year-old female presents the hospital with worsening back and left leg pain. She is describes pain involving left buttock posterior lateral thigh extending to the the knee on the left. The right side is asymptomatic. She denies any precipitating trauma fall or event. She states is present been present for approximately 2 months. She has a history of undergoing a lumbar decompression and fusion L5-S1 in 2004. She has not had any recent lumbar injections. Allergies Allergy/AdvReac Type Severity Reaction Status Date / Time morphine Allergy Severe blisters Verified 12/01/23 12:03 in mouth Sulfa (Sulfonamide Allergy Severe rash/swelli Verified 12/01/23 12:03 Antibiotics) ng amoxicillin [From Augmentin] Allergy Intermediate itching/power Verified 12/01/23 12:03 h ceftriaxone [From Rocephin] Allergy Intermediate Hives Verified 12/01/23 12:03 clavulanic acid Allergy Intermediate itching/power Verified 12/01/23 12:03 [From Augmentin] h erythromycin base Allergy Intermediate Hives Verified 12/01/23 12:03 vancomycin Allergy Intermediate YULIYA Verified 12/01/23 12:03 SYNDROME---CAN TAKE IF VERY SLOW DRIP. adhesive AdvReac Intermediate DERMABOND Verified 12/01/23 12:03 excoriates skin gabapentin AdvReac Intermediate Nausea Verified 12/01/23 12:03 iron [From Venofer] AdvReac Intermediate Hypertensio Verified 12/01/23 12:03 n Home Medications Medication Instructions Recorded Confirmed Type ropinirole 2 mg tablet 4 mg PO HS 10/19/20 12/01/23 History insulin lispro 100 unit/mL 5 unit subcut TIDM 03/08/22 12/01/23 History subcutaneous pen zolpidem 10 mg tablet 10 mg PO HS PRN Sleep 03/08/22 12/01/23 History insulin glargine 100 unit/mL (3 10 unit subcut HS 10/17/22 12/01/23 History mL) subcutaneous pen (Lantus Solostar U-100 Insulin) albuterol sulfate 90 mcg/actuation 2 puff inhalation QID PRN 05/08/23 12/01/23 History aerosol inhaler Shortness Of Breath Or Wheezing alprazolam 1 mg tablet 1 mg PO TID PRN Anxiety 05/08/23 12/01/23 History docusate sodium 100 mg capsule 100 mg PO BID 05/08/23 12/01/23 History metoprolol succinate 50 mg 50 mg PO QAM 05/08/23 12/01/23 History tablet,extended release 24 hr (Toprol XL) pantoprazole 40 mg tablet,delayed 40 mg PO BID 05/08/23 12/01/23 History release prazosin 1 mg capsule 1 mg PO TID 05/08/23 12/01/23 History clopidogrel 75 mg tablet (Plavix) 75 mg PO DAILY #30 tabs 05/10/23 12/01/23 Rx oxycodone-acetaminophen 7.5 mg-325 2 tab PO Q4 PRN Pain,severe 06/13/23 12/01/23 History mg tablet prochlorperazine maleate 5 mg 5 mg PO TID PRN Nausea 06/13/23 12/01/23 History tablet cyclobenzaprine 10 mg tablet 10 mg PO BID 08/07/23 12/01/23 History lisinopril 20 mg tablet 20 mg PO DAILY #30 tabs 08/09/23 12/01/23 Rx aspirin 81 mg tablet,delayed 81 mg PO DAILY 09/19/23 12/01/23 History release duloxetine 30 mg capsule,delayed 30 mg PO DAILY 09/19/23 12/01/23 History release hydralazine 25 mg tablet 25 mg PO TID 09/19/23 12/01/23 History nifedipine 60 mg tablet,extended 120 mg PO DAILY 09/19/23 12/01/23 History release 24 hr Patient History Medical History (Updated 12/04/23 @ 14:58 by Vince Morrow DO) PAD (peripheral artery disease) Hypertension Groin pain Foot pain Costochondritis Infection of left great toe due to methicillin resistant Staphylococcus aureus (MRSA) Diastolic CHF COVID-19 Osteomyelitis of great toe of left foot Chronic pain syndrome Opiate dependence Opiate abuse, continuous Acidosis, lactic Acute dehydration Gastroenteritis Sepsis Shortness of breath Opioid dependence Iron deficiency anemia Hypomagnesemia Diabetic peripheral neuropathy Insomnia 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 No issues per anesthesia postop progress note. HTN (hypertension) Anemia Hyponatremia Cellulitis Peripheral neuropathy Benzodiazepine withdrawal Right second toe ulcer Diabetes mellitus type 2, uncontrolled Hyperlipidemia Seizures Gastritis Depression Chronic back pain Nonobstructive atherosclerosis of coronary artery Numbness of lower extremity Hypertriglyceridemia CAD (coronary artery disease) History of tobacco use Benzodiazepine dependence Restless leg syndrome Diabetic neuropathy Abdominal pain Gastroparesis Esophagitis determined by endoscopy GIB (gastrointestinal bleeding) Insulin dependent diabetes mellitus DM2 (diabetes mellitus, type 2) IDDM, A1c 07/2021-11% Surgical History History of amputation of great toe History of right below knee amputation (12/22/21) Right Below Knee Amputation(Right) - Davon Good MD, FACS History of lumbar surgery History of esophagogastroduodenoscopy (EGD) Family History Mother , age 63 Myocardial infarction Father , age 68 or 69 Myocardial infarction Brother S/P CABG (coronary artery bypass graft) Sister Myocardial infarction x 3; she is 57yo Social History Smoking Status: Former smoker Tobacco Type: Cigarettes packs per day: 0.5; Cigarettes Per Day: 20; Second Hand Exposure: No; Do You Dip or Chew Tobacco: No; Hx Alcohol Use: No Hx Substance Use: Yes Prescribed Medications: Marijuana Last Used Substance: Days (ago) Last Used Substance Other:: Medical marijuana Substance Use Type Other:: Medical Marijuana Preferred Language: [place] Communication Ability: Effective Visual Impairment: No Limitations Hearing Ability: Normal Acquisition Cost Estimator Required: No Beliefs That Will Affect Care: None marital status: Current Living Situation: Spouse current occupational status: unemployed 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 Other Information That Helps Us Care for You: No other: raising a grandchild as well; lives in [place] Feels Safe at Home: Yes Safety Concerns: Feels Safe At This Time Diet: diabetic and low salt during the past year weight has: remained stable Assistive Devices: Walker and Wheelchair Physical Exam Physical Exam: Patient is sitting up in bed. She is alert and cooperative. She has bilateral amputations to the feet. Sensory is diminished lower extremities. She has reasonable quadricep function bilaterally. Results & Data Vital Signs (Past 12 Hours) Vital Signs Temp Pulse Resp BP Pulse Ox O2 Del Method 12/04/23 14:22 36.8 C 67 18 125/72 96 Room Air 12/04/23 10:33 136/74 12/04/23 08:30 Room Air 12/04/23 07:36 36.7 C 80 18 203/78 H 95 Room Air
[2023-12-05 07:20] LABS: Anion Gap 5 (3-11); BUN Creatinine Ratio 29.8 (10-20); Blood Urea Nitrogen 14 mg/dl (6-23); Calcium 9.6 mg/dl (8.6-10.3); Carbon Dioxide 29 mmol/L (21-32); Chloride 101 mmol/L (98-107); Creatinine Clr Calc Pharmacy 101.9 ml/min; Est GFR (African American) 125.3 ml/min; Est GFR (Non-African American) 108.1 ml/min; Glucose 127 mg/dl (70-99(Fasting)); Sodium 135 mmol/L (136-145)
[2023-12-05 08:09] LABS: Basophils # (auto) 0.08 K/uL (0.00-0.20); Basophils % (auto) 0.6 %; Eosinophils # (auto) 0.68 K/uL (0.00-0.50); Eosinophils % (auto) 5.3 %; Hematocrit (blood only) 39.2 % (37.0-47.0); Immature Granulocytes # (auto) 0.04 K/uL (0.01-0.20); Immature Granulocytes % (auto) 0.3 %; Lymphocytes # (auto) 3.87 K/uL (1.20-3.40); Lymphocytes % (auto) 30.1 %; Mean Corpuscular Hgb Conc 33.2 g/dL (32.0-36.0); Mean Corpuscular Volume 81.3 fL (80.0-100.0); Mean Platelet Volume 10.8 fL (9.4-12.4); Monocytes # (auto) 1.04 K/uL (0.11-0.59); Monocytes % (auto) 8.1 %; Neutrophils # (auto) 7.14 K/uL (1.40-6.50); Neutrophils % (auto) 55.6 %; Platelet Count 311 K/uL (130-400); RDW Coefficient of Variation 14.3 % (11.5-14.5); RDW Standard Deviation 41.8 fL (36.4-46.3); Red Blood Count 4.82 M/uL (4.20-5.40); White Blood Count 12.85 K/ul (4.8-10.8)
--- NOTE | 2023-12-05 09:03 | Pain Management Consultation ---
Date of Consultation December 05, 2023 Assessment & Plan (1) Diffuse abdominal pain: (2) Left flank pain: Plan Patient's pain along the left flank appears myofascial related. There is no pain in the lower lumbar region so I do not suspect the L4-L5 disc bulge to be the cause of her current pain. I did offer to perform trigger point injections into that area to see if may be efficacious towards diminishing her pain but the patient refuses. She states that she does not want any shots into her back. Alternatively I will order a lidocaine patch to have it applied onto the left flank and I will also switch the Flexeril to tizanidine. She is aware that on discharge she will have to rely on her prior opioid regimen. Prior abdominal imaging showed moderate constipation so I would recommend a bowel regimen. Will sign off on the patient. Please contact with any questions or concerns. History of Present Illness Reason for Consultation: back pain Attending Physician: Sangeeta Ko MD History of Present Illness This is a 58-year-old female that is well-known to the [facility] with a significant history of diabetes melitis and peripheral artery disease that has resulted in amputation of the left great toe as well as a right below the knee amputation. She has been admitted to the [facility] for abdominal pain. She had does have a significant history of gastroparesis and chronic opioid use and also found to be moderately constipated. During this admission she is also complaining of pain along the left flank. She describes as sharp stabbing pain and denies any aggravating factors. She states that she can wake up in the middle of the night with this pain. Symptoms have been ongoing for several months without any specific injury. She states that when the back pain is severe she will feel a pain along the left leg but this does not occur often. Patient does have a significant history of L5-S1 fusion by Dr. Ortiz ([facility]) in 2004. Evaluated by Dr. Morrow yesterday and surgical intervention is not recommended. At home she is chronically taking Percocet 7.5/325 mg every 4 hours. During admission she does have oxycodone 10 mg every 4 hours ordered but she states that it does not work fast enough so she is relying on IV Dilaudid 1 mg every 3 hours. Patient denies any bowel/bladder incontinence, saddle anesthesia, foot drop, falls. She states that whenever the pain is severe that she feels like her leg may give out on her. Case discussed with Dr. Deena Sandoval Allergies Allergy/AdvReac Type Severity Reaction Status Date / Time morphine Allergy Severe blisters Verified 12/01/23 12:03 in mouth Sulfa (Sulfonamide Allergy Severe rash/swelli Verified 12/01/23 12:03 Antibiotics) ng amoxicillin [From Augmentin] Allergy Intermediate itching/power Verified 12/01/23 12:03 h ceftriaxone [From Rocephin] Allergy Intermediate Hives Verified 12/01/23 12:03 clavulanic acid Allergy Intermediate itching/power Verified 12/01/23 12:03 [From Augmentin] h erythromycin base Allergy Intermediate Hives Verified 12/01/23 12:03 vancomycin Allergy Intermediate YULIYA Verified 12/01/23 12:03 SYNDROME---CAN TAKE IF VERY SLOW DRIP. adhesive AdvReac Intermediate DERMABOND Verified 12/01/23 12:03 excoriates skin gabapentin AdvReac Intermediate Nausea Verified 12/01/23 12:03 iron [From Venofer] AdvReac Intermediate Hypertensio Verified 12/01/23 12:03 n Home Medications Medication Instructions Recorded Confirmed Type ropinirole 2 mg tablet 4 mg PO HS 10/19/20 12/01/23 History insulin lispro 100 unit/mL 5 unit subcut TIDM 03/08/22 12/01/23 History subcutaneous pen zolpidem 10 mg tablet 10 mg PO HS PRN Sleep 03/08/22 12/01/23 History insulin glargine 100 unit/mL (3 10 unit subcut HS 10/17/22 12/01/23 History mL) subcutaneous pen (Lantus Solostar U-100 Insulin) albuterol sulfate 90 mcg/actuation 2 puff inhalation QID PRN 05/08/23 12/01/23 History aerosol inhaler Shortness Of Breath Or Wheezing alprazolam 1 mg tablet 1 mg PO TID PRN Anxiety 05/08/23 12/01/23 History docusate sodium 100 mg capsule 100 mg PO BID 05/08/23 12/01/23 History metoprolol succinate 50 mg 50 mg PO QAM 05/08/23 12/01/23 History tablet,extended release 24 hr (Toprol XL) pantoprazole 40 mg tablet,delayed 40 mg PO BID 05/08/23 12/01/23 History release prazosin 1 mg capsule 1 mg PO TID 05/08/23 12/01/23 History clopidogrel 75 mg tablet (Plavix) 75 mg PO DAILY #30 tabs 05/10/23 12/01/23 Rx oxycodone-acetaminophen 7.5 mg-325 2 tab PO Q4 PRN Pain,severe 06/13/23 12/01/23 History mg tablet prochlorperazine maleate 5 mg 5 mg PO TID PRN Nausea 06/13/23 12/01/23 History tablet cyclobenzaprine 10 mg tablet 10 mg PO BID 08/07/23 12/01/23 History lisinopril 20 mg tablet 20 mg PO DAILY #30 tabs 08/09/23 12/01/23 Rx aspirin 81 mg tablet,delayed 81 mg PO DAILY 09/19/23 12/01/23 History release duloxetine 30 mg capsule,delayed 30 mg PO DAILY 09/19/23 12/01/23 History release hydralazine 25 mg tablet 25 mg PO TID 09/19/23 12/01/23 History nifedipine 60 mg tablet,extended 120 mg PO DAILY 09/19/23 12/01/23 History release 24 hr Patient History Medical History PAD (peripheral artery disease) Hypertension Groin pain Foot pain Costochondritis Infection of left great toe due to methicillin resistant Staphylococcus aureus (MRSA) Diastolic CHF COVID-19 Osteomyelitis of great toe of left foot Chronic pain syndrome Opiate dependence Opiate abuse, continuous Acidosis, lactic Acute dehydration Gastroenteritis Sepsis Shortness of breath Opioid dependence Iron deficiency anemia Hypomagnesemia Diabetic peripheral neuropathy Insomnia 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 No issues per anesthesia postop progress note. HTN (hypertension) Anemia Hyponatremia Cellulitis Peripheral neuropathy Benzodiazepine withdrawal Right second toe ulcer Diabetes mellitus type 2, uncontrolled Hyperlipidemia Seizures Gastritis Depression Chronic back pain Nonobstructive atherosclerosis of coronary artery Numbness of lower extremity Hypertriglyceridemia CAD (coronary artery disease) History of tobacco use Benzodiazepine dependence Restless leg syndrome Diabetic neuropathy Abdominal pain Gastroparesis Esophagitis determined by endoscopy GIB (gastrointestinal bleeding) Insulin dependent diabetes mellitus DM2 (diabetes mellitus, type 2) IDDM, A1c 07/2021-11% Surgical History History of amputation of great toe History of right below knee amputation (12/22/21) Right Below Knee Amputation(Right) - Davon Good MD, [facility] History of lumbar surgery History of esophagogastroduodenoscopy (EGD) Family History Mother , age 63 Myocardial infarction Father , age 68 or 69 Myocardial infarction Brother S/P CABG (coronary artery bypass graft) Sister Myocardial infarction x 3; she is 57yo Social History Smoking Status: Former smoker Tobacco Type: Cigarettes packs per day: 0.5; Cigarettes Per Day: 20; Second Hand Exposure: No; Do You Dip or Chew Tobacco: No; Hx Alcohol Use: No Hx Substance Use: Yes Prescribed Medications: Marijuana Last Used Substance: Days (ago) Last Used Substance Other:: Medical marijuana Substance Use Type Other:: Medical Marijuana Preferred Language: Gibralt[place] Communication Ability: Effective Visual Impairment: No Limitations Hearing Ability: Normal Traveling Freight Agent Required: No Beliefs That Will Affect Care: None marital status: Current Living Situation: Spouse current occupational status: unemployed 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 Other Information That Helps Us Care for You: No other: raising a grandchild as well; lives in [place] Feels Safe at Home: Yes Safety Concerns: Feels Safe At This Time Diet: diabetic and low salt during the past year weight has: remained stable Assistive Devices: Walker and Wheelchair Physical Exam Physical Exam: GENERAL: This is a 58 year old female in no acute distress. Sitting comfortably in the hospital bed. Able to make positional changes without difficulty. HEAD/FACE: Normocephalic and atraumatic. EYES: No drainage or conjunctival injection. ENT: Nose without bleeding or discharge. Oral mucosa moist. NECK: Full ROM without apparent pain. No swelling or masses noted. RESPIRATORY: Patient with unlabored breathing. No signs of respiratory distress. CHEST/AXILLA: Chest movement symmetrical. No deformities noted. ABDOMEN/GI: No distension BACK: Normal thoracic kyphosis and lumbar lordosis. Full range of motion in all planes. There is no midline, facet joint, SI joint tenderness. There is hyperalgesia along the superior aspect of the left quadratus lumborum musculature with mild spasm noted. SKIN: [place], warm and dry. No rash noted. MS/EXTREMITY: Right below the knee amputation. NEURO: Alert and appears oriented. Speech is fluent. Cranial Nerves are grossly intact. PSYCH: Alert, pleasant, affect is calm
[2023-12-05] MEDS: LIDOCAINE 5% 1 PATCH TD SCH (09:46)
[2023-12-05] MEDS: tiZANidine HCL 4 MG TABLET PO SCH (09:46)
--- NOTE | 2023-12-05 19:40 | Hospitalist Progress Note ---
Date of Service December 05, 2023 Assessment & Plan (1) Back pain: Plan: Presented with acute on chronic worsening mid and lower back pain with radiation around left flank to left groin and down left LE Now also c/o pain into both groins and down thighs WIth persistent leukocytosis but no fevers, blood cxs negative, no signs of back infection on imaging CT a/p negative for acute No UTI or ureterolithiasis Requiring large amounts of opioids here with IV Dilaudid and oral oxycodone- takes 15mg of oxycodone every 6 hours at home on a regular basis MRI T and L-spines performed on 12/03 do show severe left neural foraminal stenosis due to facet arthrosis as well as a left foraminal disc protrusion. There is moderate right neural foraminal stenosis. She does have a previous L5-S1 decompression and fusion Consult Ortho spine for further opinion to see if surgical intervention would relieve her ongoing severe pain-no surgery offered, suggested Pain management Pain management offered myofascial injections but pt declines at this time-encouraged her to rethink this as an option Continue po oxycodone prn and can continue IV dilaudid prn for now COnsult Ortho Spine Dr. Pritchett for second opinion at pt's request (2) Nausea & vomiting: Plan: Acute on chronic-vomits every single day at home for years, usually worse in the AM. Seems to be worse with acute back pain Presumed to have gastroparesi, no GES to review Continue scheduled reglan, compazine prn Tolerating some regular food here and taking po pills but has lost 16 kg in the last 1.[address] abd/pel nothing acute to explain this Has had EGDs as outpt and at other facilities and says no problems found Continue PPI po Ensure bowels moving regularly (3) Leukocytosis: Plan: Suspected stress reaction related to vomiting and ongoing pain. Procalcitonin negative Has improved down to 11 from 18 on admission, but now back to 12 and stable, afebrile Blood cxs remain NGTD Ur cx mixed adithya and UA contaminated with epis, she had no urinary symptoms Discontinued Cipro IV which she received for 2 days for UTI CXR negative, CT A/P negative, MRIs of the spine do not show evidence of osteomyelitis or discitis Follow CBC and if continues to worsen, will do further evaluation for infection (4) HTN (hypertension): Plan: BPs continue to be elevated here likely secondary to pain Continue nifedipine, metoprolol, and hydralazine COntinue home lisinopril and resume prazosin if needed but did cause hypotension earlier in stay (5) Type 2 diabetes mellitus: Plan: Hemoglobin A1C 7.1% here Continue Novolog SSI as needed Is on Lantus at home 10 units daily but holding here as minimal po intake (6) Chronic pain syndrome: Plan: typically on high doses of oxycodone daily Increase Cymbalta to 60mg daily for depression and for chronic pain Continue oxycodone 10mg po q4h prn pain to be used before IV pain meds (7) PAD (peripheral artery disease): Plan: With multifocal severe stenoses in RLE seen on CT abd/pel she had angiogram with balloon angioplasty performed in left LE in 09/2023 at [facility] Continue aspirin, clopidogrel for now, but if needing back surgery, would have to hold these Should also be on statin (8) Depression: Plan: Continue duloxetine 30mg PO daily and now increasing to 60mg daily for chronic pain continue Ambien prn insomnia (9) Stye: Plan: Ciprofloxacin 0.3% OPL BID. Warm compress (10) Restless leg syndrome: Plan: continue home requip Plan DVT proph-Lovenox SQ Dispo-continued stay Admission and Anticipated Discharge Date Admission Date: December 03, 2023 Subjective Pt continues to complain of severe back pain now states it is going down into both hips and is so severe that "I just don't know how much longer I can go on like this" and is very tearful today.She is curled up into a ball with knees pulled to chest, rocking back and forth in bed, crying. Is eating her meals. She declined to have Pain Management injections as she doesn't think they have helped her in the past. When asked what she thinks should be done, she has no solutions. I encouraged her to try the Pain Management injections to at least see if there's any benefit and she will discuss with her Physical Exam Constitutional: well developed Respiratory: normal respiratory effort, lungs clear to auscultation Cardiovascular: RRR, no murmur, no edema Vessels: dorsalis pedis pulses present (on left) Gastrointestinal (Abdomen): normal bowel sounds, soft, nontender, no hepatosplenomegaly Musculoskeletal: Extremities: + extremities abnormal to inspection (Rt BKA,left MT amputation) Results & Data Results & Data Vital Signs (Past 12 Hours) Vital Signs Temp Pulse Resp BP Pulse Ox O2 Del Method 12/05/23 14:28 37.4 C 64 16 125/72 96 Room Air 12/05/23 13:52 121/75 12/05/23 11:07 37.0 C 67 14 175/81 H 95 Room Air 12/05/23 07:45 Room Air Laboratory Results CBC, BMP, blood cxs reviewed PG Care Time/CCT Total # of Minutes Spent Total Time Spent with Patient: Total time spent is greater than 50% in coordination of care (as documented) at patient's floor/unit and/or counseling patient: Coding Level of Care Code 66640 SUB INP/OBS CARE 2/35MIN Diagnoses Back pain M54.9 Nausea & vomiting R11.2 Vomiting type: unspecified Leukocytosis D72.829 HTN (hypertension) I10 Type 2 diabetes mellitus E11.69; Z79.4 Diabetes mellitus complication status: with other specified complication Diabetes mellitus superintendent container terminal insulin use: with superintendent container terminal use Chronic pain syndrome G89.4 PAD (peripheral artery disease) I73.9 Depression F32.9 Stye H00.019 Restless leg syndrome G25.81 (2) Nausea & vomiting Vomiting type: unspecified Qualified Code(s): R11.2 - Nausea with vomiting, unspecified (5) Type 2 diabetes mellitus Diabetes mellitus complication status: with other specified complication Diabetes mellitus superintendent container terminal insulin use: with superintendent container terminal use Qualified Code(s): E11.69 - Type 2 diabetes mellitus with other specified complication; Z79.4 - moth 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
[2023-12-06 06:35] LABS: Basophils # (auto) 0.06 K/uL (0.00-0.20); Basophils % (auto) 0.5 %; Eosinophils # (auto) 0.56 K/uL (0.00-0.50); Eosinophils % (auto) 4.8 %; Hematocrit (blood only) 37.8 % (37.0-47.0); Hemoglobin 12.5 g/dl (12.0-16.0); Immature Granulocytes # (auto) 0.03 K/uL (0.01-0.20); Immature Granulocytes % (auto) 0.3 %; Lymphocytes # (auto) 2.76 K/uL (1.20-3.40); Lymphocytes % (auto) 23.8 %; Mean Corpuscular Hemoglobin 26.8 pg (25.0-34.0); Mean Corpuscular Hgb Conc 33.1 g/dL (32.0-36.0); Mean Corpuscular Volume 81.1 fL (80.0-100.0); Mean Platelet Volume 10.4 fL (9.4-12.4); Monocytes # (auto) 0.91 K/uL (0.11-0.59); Monocytes % (auto) 7.8 %; Neutrophils # (auto) 7.29 K/uL (1.40-6.50); Neutrophils % (auto) 62.8 %; Platelet Count 283 K/uL (130-400); RDW Coefficient of Variation 14.2 % (11.5-14.5); RDW Standard Deviation 41.7 fL (36.4-46.3); Red Blood Count 4.66 M/uL (4.20-5.40); White Blood Count 11.61 K/ul (4.8-10.8)
[2023-12-06 07:02] LABS: BUN Creatinine Ratio 44.2 (10-20); Calcium 9.7 mg/dl (8.6-10.3); Creatinine Clr Calc Pharmacy 111.4 ml/min; Est GFR (Non-African American) 111.3 ml/min; Potassium 4.1 mmol/L (3.5-5.1)
[2023-12-06] MEDS: DULoxetine HCL 60 MG CAP PO SCH (09:47)
--- NOTE | 2023-12-06 17:14 | Hospitalist Progress Note ---
Date of Service December 06, 2023 Assessment & Plan (1) Back pain: Plan: Presented with acute on chronic worsening mid and lower back pain with radiation around left flank to left groin and down left LE Now also c/o pain into both groins and down thighs WIth persistent leukocytosis but no fevers, blood cxs negative, no signs of back infection on imaging CT a/p negative for acute No UTI or ureterolithiasis Requiring large amounts of opioids here with IV Dilaudid and oral oxycodone- takes 15mg of oxycodone every 6 hours at home on a regular basis MRI T and L-spines performed on 12/03 do show severe left neural foraminal stenosis due to facet arthrosis as well as a left foraminal disc protrusion. There is moderate right neural foraminal stenosis. She does have a previous L5-S1 decompression and fusion Consult Ortho spine for further opinion to see if surgical intervention would relieve her ongoing severe pain-no surgery offered, suggested Pain management Pain management offered myofascial injections but pt initially declined and is now waiting to speak to her to consider the option. Continue po oxycodone prn and can continue IV dilaudid prn for now COnsult Ortho Spine Dr. Pritchett for second opinion at pt's request. Spoke to Dr. Pritchett who completely agrees with Dr. Morrow and has no new recommendations. (2) Nausea & vomiting: Plan: Acute on chronic-vomits every single day at home for years, usually worse in the AM. Seems to be worse with acute back pain Presumed to have gastroparesi, no GES to review Continue scheduled reglan, compazine prn Tolerating some regular food here and taking po pills but has lost 16 kg in the last 1.[address] abd/pel nothing acute to explain this Has had EGDs as outpt and at other facilities and says no problems found Continue PPI po Ensure bowels moving regularly (3) Leukocytosis: Plan: Suspected stress reaction related to vomiting and ongoing pain. Procalcitonin negative Has improved down to 11 from 18 on admission, but now back to 12 and stable, afebrile Blood cxs remain NGTD Ur cx mixed adithya and UA contaminated with epis, she had no urinary symptoms Discontinued Cipro IV which she received for 2 days for UTI CXR negative, CT A/P negative, MRIs of the spine do not show evidence of osteomyelitis or discitis Follow CBC and if continues to worsen, will do further evaluation for infection (4) HTN (hypertension): Plan: Blood pressure better controlled now Continue nifedipine, metoprolol, and hydralazine COntinue home lisinopril and resume prazosin if needed but did cause hypotension earlier in stay (5) Type 2 diabetes mellitus: Plan: Hemoglobin A1C 7.1% here Continue Novolog SSI as needed Is on Lantus at home 10 units daily but holding here as minimal po intake (6) Chronic pain syndrome: Plan: typically on high doses of oxycodone daily Increase Cymbalta to 60mg daily for depression and for chronic pain Continue oxycodone 10mg po q4h prn pain to be used before IV pain meds (7) PAD (peripheral artery disease): Plan: With multifocal severe stenoses in RLE seen on CT abd/pel she had angiogram with balloon angioplasty performed in left LE in 09/2023 at outside [facility] Continue aspirin, clopidogrel for now, but if needing back surgery, would have to hold these Should also be on statin (8) Depression: Plan: Continue duloxetine 30mg PO daily and now increasing to 60mg daily for chronic pain continue Ambien prn insomnia (9) Stye: Plan: Ciprofloxacin 0.3% OPL BID. Warm compress (10) Restless leg syndrome: Plan: continue home requip Plan DVT proph-Lovenox SQ Dispo-continued stay Admission and Anticipated Discharge Date Admission Date: December 03, 2023 Subjective Patient still complains of excruciating back pain. Using IV Dilaudid every 3 hours on the dot. Review of Systems Review of Systems: All systems reviewed & are unremarkable except as noted in Subjective Physical Exam Physical Exam: General: Awake, conversant Heart: S1, S2/regular rate and rhythm, no murmur rubs or gallops Lungs: Clear to auscultation bilaterally. Normal effort Abdomen: Soft/nontender/nondistended. No hepatosplenomegaly Extremities: No clubbing/cyanosis. No edema. Right BKA Behavior: Appropriate, cooperative Results & Data Results & Data Vital Signs (Past 12 Hours) Vital Signs Temp Pulse Resp BP Pulse Ox O2 Del Method 12/06/23 14:21 37.0 C 73 16 120/73 97 Room Air 12/06/23 10:40 Room Air 12/06/23 07:53 36.9 C 70 16 153/89 H 98 Room Air Laboratory Results Abnormal lab results 12/05/23 12/06/23 12/06/23 Range/Units 21:42 05:50 07:55 WBC 11.61 H (4.8-10.8) K/ul Neut # (Auto) 7.29 H (1.40-6.50) K/uL [place] # (Auto) 0.91 H (0.11-0.59) K/uL Eos # (Auto) 0.56 H (0.00-0.50) K/uL Creatinine 0.43 L (0.6-1.2) mg/dl BUN/Creatinine Ratio 44.2 H (10-20) Glucose 144 H (70-99(Fasting)) mg/dl POC Glucose 170 H 130 H (70-99) mg/dl 12/06/23 12/06/23 Range/Units 11:22 16:19 WBC (4.8-10.8) K/ul Neut # (Auto) (1.40-6.50) K/uL [place] # (Auto) (0.11-0.59) K/uL Eos # (Auto) (0.00-0.50) K/uL Creatinine (0.6-1.2) mg/dl BUN/Creatinine Ratio (10-20) Glucose (70-99(Fasting)) mg/dl POC Glucose 137 H 124 H (70-99) mg/dl PG Care Time/CCT Total # of Minutes Spent Total Time Spent with Patient: Total time spent is greater than 50% in coordination of care (as documented) at patient's floor/unit and/or counseling patient: Coding Level of Care Code 73219 SUB INP/OBS CARE 2/35MIN Diagnoses Back pain M54.9 Nausea & vomiting R11.2 Vomiting type: unspecified Leukocytosis D72.829 HTN (hypertension) I10 Type 2 diabetes mellitus E11.69; Z79.4 Diabetes mellitus complication status: with other specified complication Diabetes mellitus 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
[2023-12-07] MEDS ORDERED: DEXAMETHASONE SOD INJ 4 MG/ML VIAL IV STA (09:19)
[2023-12-07] MEDS: dexAMETHasone 4 MG in SYRINGE 0 ML IV ONE (10:06)
[2023-12-07] MEDS: METHYLNALTREXONE BROMIDE 12 MG/0.6 ML VIAL SQ SCH (12:42)
[2023-12-07] MEDS: ACETAMINOPHEN 500 MG TAB PO SCH (14:33)
--- NOTE | 2023-12-07 17:13 | Hospitalist Progress Note ---
Date of Service December 07, 2023 Assessment & Plan (1) Back pain: Plan: Back pain has improved with lidoderm now significant left knee and groin pain CT a/p negative for acute No UTI or ureterolithiasis Requiring large amounts of opioids here with IV Dilaudid and oral oxycodone- takes 15mg of oxycodone MRI T and L-spines performed on 12/03 do show severe left neural foraminal stenosis due to facet arthrosis as well as a left foraminal disc protrusion. There is moderate right neural foraminal stenosis. She does have a previous L5-S1 decompression and fusion Consult Ortho spine for further opinion to see if surgical intervention would re lieve her ongoing severe pain-no surgery offered, suggested Pain management Pain management offered myofascial injections but pt initially declined and is now waiting to speak to her to consider the option. Continue po oxycodone prn and can continue IV dilaudid prn for now COnsult Ortho Spine Dr. Pritchett for second opinion at pt's request. Spoke to Dr. Pritchett who completely agrees with Dr. Morrow and has no new recommendations. for knee pain will have MRI of knee (2) Nausea & vomiting: Plan: Improved with Continue scheduled reglan, compazine prn Tolerating some regular food here and taking po pills but has lost 16 kg in the last 1.[address] abd/pel nothing acute to explain this Has had EGDs as outpt and at other facilities and says no problems found Continue PPI po Ensure bowels moving regularly, adding relistor, changing colace to senna (3) HTN (hypertension): Plan: Blood pressure better controlled Continue nifedipine, metoprolol, and hydralazine COntinue home lisinopril and resume prazosin if needed but did cause hypotension earlier in stay (4) Type 2 diabetes mellitus: Plan: Hemoglobin A1C 7.1% here Continue Novolog SSI as needed Is on Lantus at home 10 units daily but holding here as minimal po intake (5) Chronic pain syndrome: Plan: typically on high doses of oxycodone daily Increase Cymbalta to 60mg daily for depression and for chronic pain Continue oxycodone 10mg po q4h prn pain to be used before IV pain meds (6) PAD (peripheral artery disease): Plan: With multifocal severe stenoses in RLE seen on CT abd/pel she had angiogram with balloon angioplasty performed in left LE in 09/2023 at outside hospital Continue aspirin, clopidogrel for now, but if needing back surgery, would have to hold these Should also be on statin ? if arterial stenosis may have some pain associated will have re eval once knee is further evaluated (7) Depression: Plan: Continue duloxetine 30mg PO daily and now increasing to 60mg daily for chronic p ain continue Ambien prn insomnia (8) Stye: Plan: Ciprofloxacin 0.3% OPL BID. Warm compress (9) Restless leg syndrome: Plan: continue home requip Plan DVT proph-Lovenox SQ Admission and Anticipated Discharge Date Admission Date: December 03, 2023 Subjective pt with pain in the left groin and supra patella left knee, pt states the knee pain began after angioplasty at [facility] in august. there is some soft tissue changes but these feel mostly like muscular swelling and not abscess or fluid collection Physical Exam Physical Exam: Pt is awake and alert lungs are clear abd is soft and non tender left knee has some pain just above the knee and what appears to be a quad tendon dehiscence or separation left groin is without lymphadenopathy, some tenderness to palpation, Results & Data Results & Data Vital Signs (Past 12 Hours) Vital Signs Temp Pulse Resp BP Pulse Ox O2 Del Method 12/07/23 14:37 99.1 F 69 16 159/72 H 96 Room Air 12/07/23 08:15 99.0 F 75 17 122/75 98 Room Air PG Care Time/CCT Total # of Minutes Spent Total Time Spent with Patient: Total time spent is greater than 50% in coordination of care (as documented) at patient's floor/unit and/or counseling patient: Coding Level of Care Code 70357 SUB INP/OBS CARE 2/35MIN Diagnoses Back pain M54.9 Nausea & vomiting R11.2 Vomiting type: unspecified HTN (hypertension) I10 Type 2 diabetes mellitus E11.69; Z79.4 Diabetes mellitus complication status: with other specified complication Diabetes mellitus manager terminal insulin use: with mcc use Chronic pain syndrome G89.4 PAD (peripheral artery disease) I73.9 Depression F32.9 Stye H00.019 Restless leg syndrome G25.81 (2) Nausea & vomiting Vomiting type: unspecified Qualified Code(s): R11.2 - Nausea with vomiting, unspecified (4) Type 2 diabetes mellitus Diabetes mellitus complication status: with other specified complication Diabetes mellitus mcc insulin use: with manager terminal use Qualified Code(s): E11.69 - Type 2 diabetes mellitus with other specified complication; Z79.4 - long term (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
[2023-12-07] MEDS: HYDROmorphone INJ 1 MG/ML SYRINGE IV PRN (17:29)
[2023-12-07] MEDS: oxyCODONE HCL IR 5 MG TAB (IMMEDIATE RELEASE) PO PRN (20:21)
[2023-12-07] MEDS: DOCUSATE SODIUM/SENNA 50/8.6MG TAB PO SCH (20:22)
--- NOTE | 2023-12-08 00:50 | Magnetic Resonance Report ---
Exam(s): MRI LEFT FEMUR Without Contrast EXAM: MR Left Lower Extremity Without Intravenous Contrast, Femur CLINICAL HISTORY: Reason for exam: attention suprapatella quad tendon. TECHNIQUE: Multiplanar magnetic resonance images of the left femur without intravenous contrast. COMPARISON: No relevant prior studies available. FINDINGS: Bones/joints: Moderate knee joint effusion. Osteoarthritis of the knee joint, the need for an MRI should be determined clinically. Soft tissues: Intact distal quadriceps tendon, which is in continuity with the patella. No intramuscular edema within the quadriceps muscular tear. IMPRESSION: Intact distal quadriceps tendon, which is in continuity with the patella. Electronically signed by: Agus Pereira MD 12/08/23 00:49 AM
--- NOTE | 2023-12-08 15:18 | Hospitalist Progress Note ---
Date of Service December 08, 2023 Assessment & Plan (1) Back pain: Plan: Back pain has improved with lidoderm now continues with significant left knee and groin pain imaging does not suggest muscular issue, joint effusion is present, try one dose of colchicine Consider roll for re evaluation of arterial stenosis and its role in her pain CT a/p negative for acute No UTI or ureterolithiasis pain control with IV Dilaudid and oral oxycodone-takes 15mg of oxycodone MRI T and L-spines performed on 12/03 do show severe left neural foraminal stenosis due to facet arthrosis as well as a left foraminal disc protrusion. There is moderate right neural foraminal stenosis. She does have a previous L5-S1 decompression and fusion Consult Ortho spine for further opinion to see if surgical intervention would relieve her ongoing severe pain-no surgery offered, suggested Pain management Pain management offered myofascial injections but pt initially declined and is now waiting to speak to her to consider the option. Continue po oxycodone prn and can continue IV dilaudid prn for now COnsult Ortho Spine Dr. Pritchett for second opinion at pt's request. Spoke to Dr. Pritchett who completely agrees with Dr. Morrow and has no new recommen dations. (2) Nausea & vomiting: Plan: Improved with, but continues chronically Continue scheduled reglan, compazine prn Tolerating some regular food here and taking po pills but has lost 16 kg in the last 1.[address] abd/pel nothing acute to explain this Has had EGDs as outpt and at other facilities and says no problems found Continue PPI po Ensure bowels moving regularly, adding relistor, changing colace to senna (3) HTN (hypertension): Plan: Blood pressure better controlled Continue nifedipine, metoprolol, and hydralazine COntinue home lisinopril and resume prazosin if needed but did cause hypotension earlier in stay (4) Type 2 diabetes mellitus: Plan: Hemoglobin A1C 7.1% here Continue Novolog SSI as needed Is on Lantus at home 10 units daily but holding here as minimal po intake (5) Chronic pain syndrome: Plan: typically on high doses of oxycodone daily Increase Cymbalta to 60mg daily for depression and for chronic pain Continue oxycodone 15mg po q4h prn pain to be used before IV pain meds (6) PAD (peripheral artery disease): Plan: With multifocal severe stenoses in RLE seen on CT abd/pel she had angiogram with balloon angioplasty performed in left LE in 09/2023 at outside hospital Continue aspirin, clopidogrel for now, ? if arterial stenosis may have some pain associated will have re eval once knee is further evaluated (7) Depression: Plan: Continue duloxetine 30mg PO daily and now increasing to 60mg daily for chronic pain continue Ambien prn insomnia (8) Stye: Plan: Ciprofloxacin 0.3% OPL BID. Warm compress (9) Restless leg syndrome: Plan: continue home requip Plan DVT proph-Lovenox SQ Admission and Anticipated Discharge Date Admission Date: December 03, 2023 Subjective pt continues with pain in the left groin and supra patella left knee, pain is improved with increasing doses of opiates pt states the knee pain began after angioplasty at [place] in august. Imaging of abdomen does still suggest significant stenosis of the left intra- abdominal arterial supply to her leg MRI reviewed did not show any changes to her quadricep muscle or tendon. Does have joint effusion. Physical Exam Physical Exam: Pt is awake and alert lungs are clear abd is soft and non tender left knee has some pain just above the knee and what appears to be a quad tendon dehiscence or separation left groin is without lymphadenopathy, some tenderness to palpation, Results & Data Results & Data Vital Signs (Past 12 Hours) Vital Signs Temp Pulse Resp BP Pulse Ox O2 Del Method 12/08/23 14:58 98.1 F 68 16 121/73 95 Room Air 12/08/23 13:32 129/71 12/08/23 09:05 Room Air 12/08/23 07:38 98.1 F 73 16 138/73 96 Room Air PG Care Time/CCT Total # of Minutes Spent Total Time Spent with Patient: Total time spent is greater than 50% in coordination of care (as documented) at patient's floor/unit and/or counseling patient: Coding Level of Care Code 16430 SUB INP/OBS CARE 3/50MIN Diagnoses Back pain M54.9 Nausea & vomiting R11.2 Vomiting type: unspecified HTN (hypertension) I10 Type 2 diabetes mellitus E11.69; Z79.4 Diabetes mellitus complication status: with other specified complication Diabetes mellitus terminal operations supervisor insulin use: with custodial use Chronic pain syndrome G89.4 PAD (peripheral artery disease) I73.9 Depression F32.9 Stye H00.019 Restless leg syndrome G25.81 (2) Nausea & vomiting Vomiting type: unspecified Qualified Code(s): R11.2 - Nausea with vomiting, unspecified (4) Type 2 diabetes mellitus Diabetes mellitus complication status: with other specified complication Diabetes mellitus terminal operations supervisor insulin use: with custodial use Qualified Code(s): E11.69 - Type 2 diabetes mellitus with other specified complication; Z79.4 - [facility] (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
[2023-12-08] MEDS: COLCHICINE 0.6 MG TAB PO ONE (15:52)
[2023-12-09 07:16] LABS: Hematocrit (blood only) 37.6 % (37.0-47.0); Hemoglobin 12.2 g/dl (12.0-16.0); Mean Corpuscular Hemoglobin 26.9 pg (25.0-34.0); Mean Corpuscular Hgb Conc 32.4 g/dL (32.0-36.0); Mean Corpuscular Volume 82.8 fL (80.0-100.0); Mean Platelet Volume 10.6 fL (9.4-12.4); Platelet Count 338 K/uL (130-400); RDW Coefficient of Variation 14.3 % (11.5-14.5); RDW Standard Deviation 43.5 fL (36.4-46.3); Red Blood Count 4.54 M/uL (4.20-5.40); White Blood Count 11.14 K/ul (4.8-10.8)
[2023-12-09 07:35] LABS: Calcium 9.1 mg/dl (8.6-10.3); Creatinine Clr Calc Pharmacy 116.8 ml/min; Est GFR (African American) 131.1 ml/min; Est GFR (Non-African American) 113.1 ml/min; Potassium 4.4 mmol/L (3.5-5.1)
[2023-12-09] MEDS: COLCHICINE 0.6 MG TAB PO ONE (12:42)
--- NOTE | 2023-12-09 13:52 | Hospitalist Progress Note ---
Date of Service December 09, 2023 Assessment & Plan (1) Back pain: Plan: Back pain has improved with lidoderm Left knee and groin pain - improved with colchicine Consider roll for re evaluation of arterial stenosis and its role in her pain, will discuss with vascular on 12/09 CT a/p negative for acute No UTI or ureterolithiasis pain control with IV Dilaudid and oral oxycodone-takes 15mg of oxycodone MRI T and L-spines performed on 12/03 do show severe left neural foraminal stenosis due to facet arthrosis as well as a left foraminal disc protrusion. There is moderate right neural foraminal stenosis. She does have a previous L5-S1 decompression and fusion Consult Ortho spine for further opinion to see if surgical intervention would relieve her ongoing severe pain-no surgery offered, suggested Pain management Pain management offered myofascial injections but pt initially declined and is now waiting to speak to her to consider the option. Continue po oxycodone prn and can continue IV dilaudid prn for now COnsult Ortho Spine Dr. Pritchett for second opinion at pt's request. Spoke to Dr. Pritchett who completely agrees with Dr. Morrow and has no new recommendations. (2) Nausea & vomiting: Plan: Improved with, but continues chronically , likely some gastroparesis Continue scheduled reglan, Compazine prn Tolerating some regular food here and taking po pills but has lost 16 kg in the last 1.[address] abd/pel nothing acute to explain this Has had EGDs as outpt and at other facilities and says no problems found Continue PPI po Ensure bowels moving regularly, adding relistor, changing colace to senna (3) HTN (hypertension): Plan: Blood pressure better controlled Continue nifedipine, metoprolol, and hydralazine COntinue home lisinopril and resume prazosin if needed but did cause hypotension earlier in stay (4) Type 2 diabetes mellitus: Plan: Hemoglobin A1C 7.1% here Continue Novolog SSI as needed Is on Lantus at home 10 units daily but holding here as minimal po intake (5) Chronic pain syndrome: Plan: typically on high doses of oxycodone daily Increase Cymbalta to 60mg daily for depression and for chronic pain Continue oxycodone 15mg po q4h prn pain to be used before IV pain meds (6) PAD (peripheral artery disease): Plan: With multifocal severe stenoses in RLE seen on CT abd/pel she had angiogram with balloon angioplasty performed in left LE in 09/2023 at outside hospital Continue aspirin, clopidogrel for now, ? if arterial stenosis may have some pain associated will have re eval once knee is further evaluated Plan DVT proph-Lovenox SQ chronic restless leg on requip chronic depression on duloxetine increased to 60 mg ambien prn for sleep Admission and Anticipated Discharge Date Admission Date: December 03, 2023 Subjective pt feels improved, perhaps has pseudogout, colchicine did help no real claudication pain on exam, plan to discuss with vascular surgery at this time Physical Exam Physical Exam: Pt is awake and alert lungs are clear abd is soft and non tender left knee has some pain , jt effusion seen on imaging, improved with colchicine left groin is without lymphadenopathy, some tenderness to palpation, Results & Data Results & Data Vital Signs (Past 12 Hours) Vital Signs Temp Pulse Resp BP Pulse Ox O2 Del Method 12/09/23 07:49 97.9 F 70 17 150/81 H 96 Room Air Laboratory Results review cbc review chemistry PG Care Time/CCT Total # of Minutes Spent Total Time Spent with Patient: Total time spent is greater than 50% in coordination of care (as documented) at patient's floor/unit and/or counseling patient: Coding Level of Care Code 48434 SUB INP/OBS CARE MIN Diagnoses Back pain M54.9 Nausea & vomiting R11.2 Vomiting type: unspecified HTN (hypertension) I10 Type 2 diabetes mellitus E11.69; Z79.4 Diabetes mellitus complication status: with other specified complication Diabetes mellitus electric well logging operator insulin use: with detention use Chronic pain syndrome G89.4 PAD (peripheral artery disease) I73.9 (2) Nausea & vomiting Vomiting type: unspecified Qualified Code(s): R11.2 - Nausea with vomiting, unspecified (4) Type 2 diabetes mellitus Diabetes mellitus complication status: with other specified complication Diabetes mellitus electric well logging operator insulin use: with detention use Qualified Code(s): E11.69 - Type 2 diabetes mellitus with other specified complication; Z79.4 - care home (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
--- NOTE | 2023-12-10 17:20 | Ultrasound Report ---
ULTRASOUND LEFT LOWER EXTREMITY ARTERIAL; ANKLE BRACHIAL INDICES CLINICAL HISTORY: Femoral artery stenosis. COMPARISON STUDY: Left lower extremity arterial ultrasound dated 05/08/2023. TECHNIQUE: Real-time, grayscale and color Doppler sonography of the arteries of the left lower extrem ity is performed from the inguinal crease to the foot. Ankle-brachial indices were performed on the l eft. FINDINGS: Ankle brachial indices: Right brachial pressure measures 142 and left brachial pressure measures 133. Pressures in the left posterior tibial artery measure 101 for an NATHAN of 0.71 and pressures in the le ft dorsalis pedis measure 158 for an NATHAN of 1.11. Left lower extremity: Atherosclerotic plaque and irregularity is seen throughout the arteries of the left lower extremity. There are elevated velocities in the left common femoral artery measuring up to 235 cm/s. The profunda femoris artery is patent with velocities measuring up to 77 cm/s. There are n ormal arterial waveforms at the superficial femoral artery with velocities measuring up to 185 cm/s. The popliteal artery is patent with velocities measuring up to 73 cm/s. There is three-vessel runoff to the foot with velocities measuring up to 156 cm/s. The dorsalis pedis artery is patent with veloci ties measuring up to 52 cm/s. There are blunted arterial waveforms in the peroneal and posterior tibi al arteries. IMPRESSION: 1. Elevated velocities in the left common femoral artery indicate stenosis. 2. There is 3-vessel runoff of the foot. No occluded vessels are seen throughout the left leg. 3. Left ankle-brachial indices as before. Dictated: 12/10/2023 11:57 AM Transcribed: 12/10/2023 12:10 PM Chevy [id number] [email or web address] Electronically signed by: Finn Bardshaw M.D. 12/10/2023 5:18 PM
--- NOTE | 2023-12-10 17:48 | Hospitalist Progress Note ---
Date of Service December 10, 2023 Assessment & Plan (1) Back pain: Plan: Back pain has improved with lidoderm Left knee and groin pain - improved with colchicine now presistent pain, some ecchymosis, arterial doppler with consideration of high grade stenosis Consider roll for re evaluation of arterial stenosis and its role in her pain, will discuss with vascular on 12/10 CT a/p negative for acute No UTI or ureterolithiasis pain control with IV Dilaudid and oral oxycodone-takes 15mg of oxycodone MRI T and L-spines performed on 12/03 do show severe left neural foraminal stenosis due to facet arthrosis as well as a left foraminal disc protrusion. There is moderate right neural foraminal stenosis. She does have a previous L5-S1 decompression and fusion Consult Ortho spine for further opinion to see if surgical intervention would relieve her ongoing severe pain-no surgery offered, suggested Pain management Pain management offered myofascial injections but pt initially declined and is now waiting to speak to her to consider the option. Continue po oxycodone prn and can continue IV dilaudid prn for now COnsulted Ortho Spine Dr. Pritchett for second opinion at pt's request. Spoke to Dr. Pritchett who completely agrees with Dr. Morrow and has no new recommendations. (2) Nausea & vomiting: Plan: Improved with, but continues chronically , likely some gastroparesis Continue scheduled reglan, Compazine prn Tolerating some regular food here and taking po pills but has lost 16 kg in the last 1.[address] abd/pel nothing acute to explain this Has had EGDs as outpt and at other facilities and says no problems found Continue PPI po Ensure bowels moving regularly, adding relistor, changing colace to senna (3) HTN (hypertension): Plan: Blood pressure better controlled Continue nifedipine, metoprolol, and hydralazine COntinue home lisinopril and resume prazosin if needed but did cause hypotension earlier in stay (4) Type 2 diabetes mellitus: Plan: Hemoglobin A1C 7.1% here Continue Novolog SSI as needed Is on Lantus at home 10 units daily but holding here as minimal po intake (5) Chronic pain syndrome: Plan: typically on high doses of oxycodone daily Increase Cymbalta to 60mg daily for depression and for chronic pain Continue oxycodone 15mg po q4h prn pain to be used before IV pain meds (6) PAD (peripheral artery disease): Plan: With multifocal severe stenoses in RLE seen on CT abd/pel she had angiogram with balloon angioplasty performed in left LE in 09/2023 at outside hospital Continue aspirin, clopidogrel for now, ? if arterial stenosis may have some pain associated will have re eval once knee is further evaluated Plan DVT proph-Lovenox SQ chronic restless leg on requip chronic depression on duloxetine increased to 60 mg ambien prn for sleep Admission and Anticipated Discharge Date Admission Date: December 03, 2023 Subjective pt has persistent left leg pain, some ecchymosis, doppler suggests left Femoral artery stenosis, does have doppler pulses in foot but not palpable no real claudication pain on exam, plan to discuss with vascular surgery at this time Physical Exam Physical Exam: Pt is awake and alert lungs are clear abd is soft and non tender left knee has some pain , jt effusion seen on imaging, improved with colchicine left groin is without lymphadenopathy, some tenderness to palpation, Results & Data Results & Data Vital Signs (Past 12 Hours) Vital Signs Temp Pulse Resp BP Pulse Ox O2 Del Method 12/10/23 14:44 98.6 F 67 16 146/74 H 96 Room Air 12/10/23 07:30 97.9 F 69 18 160/77 H 96 Room Air PG Care Time/CCT Total # of Minutes Spent Total Time Spent with Patient: Total time spent is greater than 50% in coordination of care (as documented) at patient's floor/unit and/or counseling patient: Coding Level of Care Code 57111 SUB INP/OBS CARE MIN Diagnoses Back pain M54.9 Nausea & vomiting R11.2 Vomiting type: unspecified HTN (hypertension) I10 Type 2 diabetes mellitus E11.69; Z79.4 Diabetes mellitus complication status: with other specified complication Diabetes mellitus terminal makeup operator insulin use: with terminal makeup operator use Chronic pain syndrome G89.4 PAD (peripheral artery disease) I73.9 (2) Nausea & vomiting Vomiting type: unspecified Qualified Code(s): R11.2 - Nausea with vomiting, unspecified (4) Type 2 diabetes mellitus Diabetes mellitus complication status: with other specified complication Diabetes mellitus [facility]p insulin use: with mcfp use Qualified Code(s): E11.69 - Type 2 diabetes mellitus with other specified complication; Z79.4 - L chacha term (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
[2023-12-10] MEDS: HYDROmorphone INJ 1 MG/ML SYRINGE IV STA (17:55)
--- NOTE | 2023-12-11 09:44 | Hospitalist Progress Note ---
Date of Service December 11, 2023 Assessment & Plan (1) Back pain: Plan: Back pain has improved with Lidoderm Left knee and groin pain - improved with colchicine now persistent pain, some ecchymosis, arterial Doppler with consideration of high grade stenosis Consider roll for re evaluation of arterial stenosis and its role in her pain, will discuss with vascular on 12/10 no stigmata of endocarditis, no murmur, blood cultures are negative, CT a/p negative for acute No UTI or ureterolithiasis pain control with IV Dilaudid and oral oxycodone-takes 15mg of oxycodone MRI T and L-spines performed on 12/03 do show severe left neural foraminal stenosis due to facet arthrosis as well as a left foraminal disc protrusion. There is moderate right neural foraminal stenosis. She does have a previous L5-S1 decompression and fusion Consult Ortho spine for further opinion to see if surgical intervention would relieve her ongoing severe pain-no surgery offered, suggested Pain management Pain management offered myofascial injections but pt initially declined and is now waiting to speak to her to consider the option. Continue po oxycodone prn and can continue IV dilaudid prn for now COnsulted Ortho Spine Dr. Pritchett for second opinion at pt's request. Spoke to Dr. Pritchett who completely agrees with Dr. Morrow and has no new recommendations. (2) Nausea & vomiting: Plan: Improved with, but continues chronically , likely some gastroparesis Continue scheduled reglan, Compazine prn Tolerating some regular food here and taking po pills but has lost 16 kg in the last 1.[address] abd/pel nothing acute to explain this Has had EGDs as outpt and at other facilities and says no problems found Continue PPI po Ensure bowels moving regularly, adding relistor, changing colace to senna (3) HTN (hypertension): Plan: Blood pressure better controlled Continue nifedipine, metoprolol, and hydralazine COntinue home lisinopril and resume prazosin if needed but did cause hypotension earlier in stay (4) Type 2 diabetes mellitus: Plan: Hemoglobin A1C 7.1% here Continue Novolog SSI as needed Is on Lantus at home 10 units daily but holding here as minimal po intake (5) Chronic pain syndrome: Plan: typically on high doses of oxycodone daily Increase Cymbalta to 60mg daily for depression and for chronic pain Continue oxycodone 15mg po q4h prn pain to be used before IV pain meds (6) PAD (peripheral artery disease): Plan: With multifocal severe stenoses in RLE seen on CT abd/pel she had angiogram with balloon angioplasty performed in left LE in 09/2023 at outside hospital Continue aspirin, clopidogrel for now, ? if arterial stenosis may have some pain associated will have re eval once knee is further evaluated Plan DVT proph-Lovenox SQ chronic restless leg on requip chronic depression on duloxetine increased to 60 mg ambien prn for sleep Admission and Anticipated Discharge Date Admission Date: December 03, 2023 Subjective pt has persistent left leg pain, some additional ecchymosis, Doppler suggests left Femoral artery stenosis, does have doppler pulses in foot but not palpable persistent pain but worsened with movement Physical Exam Physical Exam: Pt is awake and alert lungs are clear abd is soft and non tender left knee is improved left groin is without lymphadenopathy, some tenderness to palpation, small ecchymosis that maybe embolic Results & Data Results & Data Vital Signs (Past 12 Hours) Vital Signs Temp Pulse Resp BP Pulse Ox O2 Del Method 12/11/23 07:42 97.9 F 73 17 135/75 95 Room Air 12/10/23 22:07 98.8 F 74 18 154/76 H 96 Room Air 12/10/23 21:58 Room Air Laboratory Results ordering labs for 12/11 PG Care Time/CCT Total # of Minutes Spent Total Time Spent with Patient: Total time spent is greater than 50% in coordination of care (as documented) at patient's floor/unit and/or counseling patient: Coding Level of Care Code 20377 SUB INP/OBS CARE 235MIN Diagnoses Back pain M54.9 Nausea & vomiting R11.2 Vomiting type: unspecified HTN (hypertension) I10 Type 2 diabetes mellitus E11.69; Z79.4 Diabetes mellitus complication status: with other specified complication Diabetes mellitus mcfp insulin use: with mcfp use Chronic pain syndrome G89.4 PAD (peripheral artery disease) I73.9 (2) Nausea & vomiting Vomiting type: unspecified Qualified Code(s): R11.2 - Nausea with vomiting, unspecified (4) Type 2 diabetes mellitus Diabetes mellitus complication status: with other specified complication Diabetes mellitus mcfp insulin use: with mcfp use Qualified Code(s): E11.69 - Type 2 diabetes mellitus with other specified complication; Z79.4 - snf (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
[2023-12-12 06:41] LABS: Hematocrit (blood only) 35.7 % (37.0-47.0); Hemoglobin 11.7 g/dl (12.0-16.0); Mean Corpuscular Hemoglobin 26.9 pg (25.0-34.0); Mean Corpuscular Hgb Conc 32.8 g/dL (32.0-36.0); Mean Corpuscular Volume 82.1 fL (80.0-100.0); Mean Platelet Volume 10.2 fL (9.4-12.4); Platelet Count 327 K/uL (130-400); RDW Coefficient of Variation 14.1 % (11.5-14.5); RDW Standard Deviation 41.8 fL (36.4-46.3); Red Blood Count 4.35 M/uL (4.20-5.40); White Blood Count 10.61 K/ul (4.8-10.8)
[2023-12-12 06:54] LABS: BUN Creatinine Ratio 39.6 (10-20); Calcium 9.1 mg/dl (8.6-10.3); Creatinine Clr Calc Pharmacy 99.8 ml/min; Est GFR (African American) 124.4 ml/min; Est GFR (Non-African American) 107.4 ml/min; Potassium 4.1 mmol/L (3.5-5.1)
--- NOTE | 2023-12-12 11:03 | Vascular Medicine Consultation ---
Date of Consultation December 12, 2023 Assessment & Plan (1) PAD (peripheral artery disease): 2. Chronic pain/lumbar spondylolisthesis 3.Insulin-dependent type 2 diabetes 4. Nonobstructive coronary disease 5. History of tobacco use Reviewed patient's recent arterial duplex. Has at most moderate left COMMUNICATIONS SCIENTIST dis ease but multiphasic flow through SFA/popliteal arteries and KERLINE. Left NATHAN normal. On exam today 2+ left COMMUNICATIONS SCIENTIST pulse and distal lower extremity well- perfused. Do not feel patient's left hip pain secondary to her moderate left lower extremity arterial disease. No signs of critical limb ischemia and prior surgical wounds have healed. Do not feel distal lower extremity pain is secondary to arterial emboli. Unlikely to benefit from repeat angiogram, revascularization. No need for additional vascular testing at this time. Continue ASCVD risk factor modification including DAPT with aspirin, cl opidogrel. Can follow-up with vascular medicine as an outpatient. History of Present Illness Attending Physician: Ashok Clemons MD History of Present Illness Ms. Witt is a very pleasant 58-year-old woman seen today in hospital for peripheral arterial disease. Past medical history includes type 2 diabetes complicated by peripheral neuropathy, chronic pain syndrome, spinal stenosis, hypertension, dyslipidemia, nonobstructive coronary artery disease. Known to me from prior hospitalizations. 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 Early in treatment course underwent angiogram 08/15/2021 on which mild to moderate SFA, KERLINE disease on right. Seen 03/2022 in the setting of left diabetic foot ulcer. Repeat angiogram revealed mild diffuse SFA disease and severe KERLINE disease treated with angioplasty with JERILYN. Long wound course complicated by osteomyelitis and has since undergone amputation of first through third digits. Per patient report had angiogram and angioplasty to left lower extremity arterial system at [facility] in August due to pain. Patient states no improvement following angioplasty. Readmitted 12/01/2023 with abdominal pain thought related to gastroparesis/constipation. Hospital course complicated by severe back/left hip pain. MRI notable for severe lumbar spondylolisthesis. Seen by orthopedics and pain management recommended. Pain management not symptoms more myofascial pain. Some improvement with lidocaine patch. Had CT of abdomen/pelvis which showed severe right iliac, SFA disease. Later underwent arterial duplex of left leg in the setting of her hip/buttock pain. Moderate COMMUNICATIONS SCIENTIST stenosis (PSV 235). Biphasic waveforms in SFA/popliteal. Monophasic waveforms in peroneal/COATING MACHINE FEEDER. KERLINE patent with biphasic waveforms to the foot. Left PT NATHAN 0.71, DP NATHAN 1.11 Prior vascular studies: Arterial duplex 03/25/2022: Left NATHAN 0.73, TBI 0.62 (toe pressure 104). >50% stenosis mid SFA (PSV 205). Monophasic KERLINE/DPA waveforms with proximal KERLINE stenosis. CTA 07/2021: Mild distal right external iliac stenosis, mild to moderate bilateral SFA disease. Severe stenosis proximal left KERLINE. Moderate proximal right KERLINE. NATHAN/TBI 07/2021: Right NATHAN 0.96, left 1.1. Right third toe pressure 184 TBI 1.39. Left TBI 1.13. Allergies Allergy/AdvReac Type Severity Reaction Status Date / Time morphine Allergy Severe blisters Verified 12/01/23 12:03 in mouth Sulfa (Sulfonamide Allergy Severe rash/swelli Verified 12/01/23 12:03 Antibiotics) ng amoxicillin [From Augmentin] Allergy Intermediate itching/power Verified 12/01/23 12:03 h ceftriaxone [From Rocephin] Allergy Intermediate Hives Verified 12/01/23 12:03 clavulanic acid Allergy Intermediate itching/power Verified 12/01/23 12:03 [From Augmentin] h erythromycin base Allergy Intermediate Hives Verified 12/01/23 12:03 vancomycin Allergy Intermediate YULIYA Verified 12/01/23 12:03 SYNDROME---CAN TAKE IF VERY SLOW DRIP. adhesive AdvReac Intermediate DERMABOND Verified 12/01/23 12:03 excoriates skin gabapentin AdvReac Intermediate Nausea Verified 12/01/23 12:03 iron [From Venofer] AdvReac Intermediate Hypertensio Verified 12/01/23 12:03 n Home Medications Medication Instructions Recorded Confirmed Type ropinirole 2 mg tablet 4 mg PO HS 10/19/20 12/01/23 History insulin lispro 100 unit/mL 5 unit subcut TIDM 03/08/22 12/01/23 History subcutaneous pen zolpidem 10 mg tablet 10 mg PO HS PRN Sleep 03/08/22 12/01/23 History insulin glargine 100 unit/mL (3 10 unit subcut HS 10/17/22 12/01/23 History mL) subcutaneous pen (Lantus Solostar U-100 Insulin) albuterol sulfate 90 mcg/actuation 2 puff inhalation QID PRN 05/08/23 12/01/23 History aerosol inhaler Shortness Of Breath Or Wheezing alprazolam 1 mg tablet 1 mg PO TID PRN Anxiety 05/08/23 12/01/23 History docusate sodium 100 mg capsule 100 mg PO BID 05/08/23 12/01/23 History metoprolol succinate 50 mg 50 mg PO QAM 05/08/23 12/01/23 History tablet,extended release 24 hr (Toprol XL) pantoprazole 40 mg tablet,delayed 40 mg PO BID 05/08/23 12/01/23 History release prazosin 1 mg capsule 1 mg PO TID 05/08/23 12/01/23 History clopidogrel 75 mg tablet (Plavix) 75 mg PO DAILY #30 tabs 05/10/23 12/01/23 Rx oxycodone-acetaminophen 7.5 mg-325 2 tab PO Q4 PRN Pain,severe 06/13/23 12/01/23 History mg tablet prochlorperazine maleate 5 mg 5 mg PO TID PRN Nausea 06/13/23 12/01/23 History tablet cyclobenzaprine 10 mg tablet 10 mg PO BID 08/07/23 12/01/23 History lisinopril 20 mg tablet 20 mg PO DAILY #30 tabs 08/09/23 12/01/23 Rx aspirin 81 mg tablet,delayed 81 mg PO DAILY 09/19/23 12/01/23 History release duloxetine 30 mg capsule,delayed 30 mg PO DAILY 09/19/23 12/01/23 History release hydralazine 25 mg tablet 25 mg PO TID 09/19/23 12/01/23 History nifedipine 60 mg tablet,extended 120 mg PO DAILY 09/19/23 12/01/23 History release 24 hr Patient History Medical History PAD (peripheral artery disease) Hypertension Groin pain Foot pain Costochondritis Infection of left great toe due to methicillin resistant Staphylococcus aureus (MRSA) Diastolic CHF COVID-19 Osteomyelitis of great toe of left foot Chronic pain syndrome Opiate dependence Opiate abuse, continuous Acidosis, lactic Acute dehydration Gastroenteritis Sepsis Shortness of breath Opioid dependence Iron deficiency anemia Hypomagnesemia Diabetic peripheral neuropathy Insomnia 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 No issues per anesthesia postop progress note. HTN (hypertension) Anemia Hyponatremia Cellulitis Peripheral neuropathy Benzodiazepine withdrawal Right second toe ulcer Diabetes mellitus type 2, uncontrolled Hyperlipidemia Seizures Gastritis Depression Chronic back pain Nonobstructive atherosclerosis of coronary artery Numbness of lower extremity Hypertriglyceridemia CAD (coronary artery disease) History of tobacco use Benzodiazepine dependence Restless leg syndrome Diabetic neuropathy Abdominal pain Gastroparesis Esophagitis determined by endoscopy GIB (gastrointestinal bleeding) Insulin dependent diabetes mellitus DM2 (diabetes mellitus, type 2) IDDM, A1c 07/2021-11% Surgical History History of amputation of great toe History of right below knee amputation (12/22/21) Right Below Knee Amputation(Right) - Davon Good MD, FACS History of lumbar surgery History of esophagogastroduodenoscopy (EGD) Family History Mother , age 63 Myocardial infarction Father , age 68 or 69 Myocardial infarction Brother S/P CABG (coronary artery bypass graft) Sister Myocardial infarction x 3; she is 57yo Social History Smoking Status: Former smoker Tobacco Type: Cigarettes packs per day: 0.5; Cigarettes Per Day: 20; Second Hand Exposure: No; Do You Dip or Chew Tobacco: No; Hx Alcohol Use: No Hx Substance Use: Yes Prescribed Medications: Marijuana Last Used Substance: Days (ago) Last Used Substance Other:: Medical marijuana Substance Use Type Other:: Medical Marijuana Preferred Language: Ukrainian Communication Ability: Effective Visual Impairment: No Limitations Hearing Ability: Normal Job Placement Counselor Required: No Beliefs That Will Affect Care: None marital status: Current Living Situation: Spouse current occupational status: unemployed 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 Other Information That Helps Us Care for You: No other: raising a grandchild as well; lives [place] Feels Safe at Home: Yes Safety Concerns: Feels Safe At This Time Diet: diabetic and low salt during the past year weight has: remained stable Assistive Devices: Walker and Wheelchair Review of Systems Review of Systems: All systems reviewed & are unremarkable except as noted in HPI & below Physical Exam Physical Exam: General: No acute distress, comfortable HEENT: Head is normal. Sclerae anicteric. Lungs: Clear to auscultation bilaterally without rales, rhonchi or wheezes. Cardiac: Regular rate and rhythm. S1-S2 normal. No appreciable murmur, gallop or rub. Extremities/vascular: --Well perfused. No peripheral edema. --Radial 2+ bilaterally --Post RT BKA - Surgical site healed --Femoral 2+ bilaterally-- Tenderness at LT groin/hip --Popliteal LT diminished --LT DP 2+, PT diminished. Prior amputa tions sites well healed. Normal cap refill in 4th/5th digits. Results & Data Vital Signs (Past 12 Hours) Vital Signs Temp Pulse Resp BP Pulse Ox O2 Del Method 12/12/23 08:32 98.6 F 75 14 133/79 94 Room Air PG Care Time/CCT Total # of Minutes Spent Total Time Spent with Patient: Total time spent is greater than 50% in coordination of care (as documented) at patient's floor/unit and/or counseling patient: Coding Level of Care Code 23163 IN/OBS CONSULT LVL 4,60M Diagnoses PAD (peripheral artery disease) I73.9
[2023-12-12] MEDS ORDERED: HYDROmorphone INJ 1 MG/ML SYRINGE IV PRN (15:28)
--- NOTE | 2023-12-12 17:15 | Hospitalist Progress Note ---
Date of Service December 12, 2023 Assessment & Plan (1) Back pain: Plan: Back pain has improved with Lidoderm, her biggest issue is leg and groin pain Left knee and groin pain - initially improved with colchicine now not working now persistent pain, some ecchymosis, arterial Doppler with consideration of high grade stenosis, Norris Lin does not feel has significant issues to cause her pain after review no stigmata of endocarditis, no murmur, blood cultures are negative, pt not wanting to re connect with pain management, does not want oxycontin or duragesic, thinks she will just go home and suffer may consider going home 12/13/23 CT a/p negative for acute No UTI or ureterolithiasis pain control with IV Dilaudid and oral oxycodone-takes 15mg of oxycodone MRI T and L-spines performed on 12/03 do show severe left neural foraminal st enosis due to facet arthrosis as well as a left foraminal disc protrusion. There is moderate right neural foraminal stenosis. She does have a previous L5-S1 decompression and fusion Consult Ortho spine for further opinion to see if surgical intervention would relieve her ongoing severe pain-no surgery offered, suggested Pain management Pain management offered myofascial injections but pt initially declined and is now waiting to speak to her to consider the option. Continue po oxycodone prn and can continue IV dilaudid prn for now COnsulted Ortho Spine Dr. Pritchett for second opinion at pt's request. Spoke to Dr. Pritchett who completely agrees with Dr. Morrow and has no new recommendations. (2) Nausea & vomiting: Plan: Improved with, but continues chronically , likely some gastroparesis Continue scheduled reglan, Compazine prn Tolerating some regular food here and taking po pills but has lost 16 kg in the last 1.[address] abd/pel nothing acute to explain this Has had EGDs as outpt and at other facilities and says no problems found Continue PPI po Ensure bowels moving regularly, adding relistor, changing colace to senna (3) HTN (hypertension): Plan: Blood pressure better controlled Continue nifedipine, metoprolol, and hydralazine COntinue home lisinopril and resume prazosin if needed but did cause hypotension earlier in stay (4) Type 2 diabetes mellitus: Plan: Hemoglobin A1C 7.1% here Continue Novolog SSI as needed Is on Lantus at home 10 units daily but holding here as minimal po intake (5) Chronic pain syndrome: Plan: typically on high doses of oxycodone daily Increase Cymbalta to 60mg daily for depression and for chronic pain Continue oxycodone 15mg po q4h prn pain to be used before IV pain meds (6) PAD (peripheral artery disease): Plan: With multifocal severe stenoses in RLE seen on CT abd/pel she had angiogram with balloon angioplasty performed in left LE in 09/2023 at outside hospital Continue aspirin, clopidogrel Plan DVT proph-Lovenox SQ chronic restless leg on requip chronic depression on duloxetine increased to 60 mg ambien prn for sleep Admission and Anticipated Discharge Date Admission Date: December 03, 2023 Subjective pt has persistent left leg pain, some additional ecchymosis, patient was seen in consultation with Dr. Norris Lin does not feel her vascular compromise is the origin of her pain Previously she had a pain management consultation and she refused offers of injections. She is offered long-term pain medication such as OxyContin or transdermal fentanyl she declined these. She says she just wants to go home and deal with her pain. She continues to do significant parenteral opiates. persistent pain but worsened with movement Physical Exam Physical Exam: Pt is awake and alert lungs are clear abd is soft and non tender left knee is improved left groin is without lymphadenopathy, some tenderness to palpation, small ecchymosis seen of her lower Results & Data Results & Data Vital Signs (Past 12 Hours) Vital Signs Temp Pulse Resp BP BP Pulse Ox O2 Del Method 12/12/23 16:08 98.8 F 67 17 188/81 H 97 Room Air 12/12/23 08:32 98.6 F 75 14 133/79 94 Room Air Laboratory Results review cbc review chemistry esr is normal to rule out vasculitis PG Care Time/CCT Total # of Minutes Spent Total Time Spent with Patient: Total time spent is greater than 50% in coordination of care (as documented) at patient's floor/unit and/or counseling patient: Coding Level of Care Code 16250 SUB INP/OBS CARE 2/35MIN Diagnoses Back pain M54.9 Nausea & vomiting R11.2 Vomiting type: unspecified HTN (hypertension) I10 Type 2 diabetes mellitus E11.69; Z79.4 Diabetes mellitus complication status: with other specified complication Diabetes mellitus senior care insulin use: with regional intermodal truck driver use Chronic pain syndrome G89.4 PAD (peripheral artery disease) I73.9 (2) Nausea & vomiting Vomiting type: unspecified Qualified Code(s): R11.2 - Nausea with vomiting, unspecified (4) Type 2 diabetes mellitus Diabetes mellitus complication status: with other specified complication Diabetes mellitus senior care insulin use: with regional intermodal truck driver use Qualified Code(s): E11.69 - Type 2 diabetes mellitus with other specified complication; Z79.4 - [facility] (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
[2023-12-12] MEDS: oxyCODONE HCL 20 MG TABCR (OxyCONTIN) PO ONE (17:25)
[2023-12-12] MEDS: HYDROmorphone INJ 1 MG/ML SYRINGE IV PRN (18:36)
--- NOTE | 2023-12-13 09:55 | Discharge Summary ---
Date of Service December 13, 2023 Admission HPI Per Admitting Provider Mariana Witt is a 58 year old female with chronic pain and recurrent abdominal pain, nausea and vomiting who presents to the ER with nausea, vomiting and abdominal pain. She reports her current episode started 1 week ago without any precipitating event or food. No respiratory or urinary symptoms. No change in her bowels. Associated nausea and vomiting. She reports not having anything proper to eat for the last week. Pain severity 10/10, radiates "everywhere". Similar to prior hospitalization with pain but she reports more severe than usual. Principal Diagnosis back pain Discharge Exam Pt is awake and alert lungs are clear abd is soft and non tender left knee is improved left groin is without lymphadenopathy, some tenderness to palpation, small ecchymosis seen of her lower Discharge Data Allergies Allergy/AdvReac Type Severity Reaction Status Date / Time morphine Allergy Severe blisters Verified 12/01/23 12:03 in mouth Sulfa (Sulfonamide Allergy Severe rash/swelli Verified 12/01/23 12:03 Antibiotics) ng amoxicillin [From Augmentin] Allergy Intermediate itching/power Verified 12/01/23 12:03 h ceftriaxone [From Rocephin] Allergy Intermediate Hives Verified 12/01/23 12:03 clavulanic acid Allergy Intermediate itching/power Verified 12/01/23 12:03 [From Augmentin] h erythromycin base Allergy Intermediate Hives Verified 12/01/23 12:03 vancomycin Allergy Intermediate YULIYA Verified 12/01/23 12:03 SYNDROME---CAN TAKE IF VERY SLOW DRIP. adhesive AdvReac Intermediate DERMABOND Verified 12/01/23 12:03 excoriates skin gabapentin AdvReac Intermediate Nausea Verified 12/01/23 12:03 iron [From Venofer] AdvReac Intermediate Hypertensio Verified 12/01/23 12:03 n Consultations 12/01/23 10:39 ED Decision to Admit Stat 12/04/23 10:14 Consult Orthopedic Spine Surgery Routine 12/04/23 14:54 Consult Pain Management Routine 12/05/23 19:49 Consult Orthopedic Spine Surgery Routine 12/12/23 07:06 Consult Cardiology Routine Ordered Studies 12/01/23 07:53 CT abd pelvis IV con only Stat 12/04/23 08:00 MR lumbar spine wo con Routine MR thoracic spine wo con Routine 12/07/23 17:09 MRI Leg [MR femur LT wo con] Routine 12/10/23 08:04 US arterial duplex LE LT Routine Hospital Course (1) Back pain: Back pain has improved with Lidoderm, her biggest issue is leg and groin pain Left knee and groin pain - initially improved with colchicine now not working now persistent pain, some ecchymosis, arterial Doppler with consideration of high grade stenosis, Norris Lin does not feel has significant issues to cause her pain after review no stigmata of endocarditis, no murmur, blood cultures are negative, pt not wanting to re connect with pain management, does not want oxycontin or duragesic, thinks she will just go home and suffer may consider going home 12/13/23 CT a/p negative for acute No UTI or ureterolithiasis pain control with IV Dilaudid and oral oxycodone-takes 15mg of oxycodone MRI T and L-spines performed on 12/03 do show severe left neural foraminal stenosis due to facet arthrosis as well as a left foraminal disc protrusion. There is moderate right neural foraminal stenosis. She does have a previous L5-S1 decompression and fusion Consult Ortho spine for further opinion to see if surgical intervention would relieve her ongoing severe pain-no surgery offered, suggested Pain management Pain management offered myofascial injections but pt initially declined and is now waiting to speak to her to consider the option. Continue po oxycodone prn and can continue IV dilaudid prn for now Consulted Ortho Spine Dr. Pritchett for second opinion at pt's request. Spoke to Dr. Pritchett who completely agrees with Dr. Morrow and has no new recommendations. (2) Nausea & vomiting: Improved with, but continues chronically , likely some gastroparesis Continue scheduled reglan, Compazine prn Tolerating some regular food here and taking po pills but has lost 16 kg in the last 1.[address] abd/pel nothing acute to explain this Has had EGDs as outpt and at other facilities and says no problems found Continue PPI po Ensure bowels moving regularly, recommend cutting back on narcotics. If symtptoms worsen, will need to get relistor on board as an outpatient. (3) HTN (hypertension): Blood pressure better controlled Continue nifedipine, metoprolol, and hydralazine COntinue home lisinopril and resume prazosin if needed but did cause hypotension earlier in stay (4) Type 2 diabetes mellitus: Hemoglobin A1C 7.1% here Continue Novolog SSI as needed Is on Lantus at home 10 units daily but holding here as minimal po intake (5) Chronic pain syndrome: typically on high doses of oxycodone daily Increase Cymbalta to 60mg daily for depression and for chronic pain Continue oxycodone 15mg po q4h prn pain to be used before IV pain meds (6) PAD (peripheral artery disease): With multifocal severe stenoses in RLE seen on CT abd/pel she had angiogram with balloon angioplasty performed in left LE in 09/2023 at outside hospital Continue aspirin, clopidogrel Plan DVT proph-Lovenox SQ chronic restless leg on requip chronic depression on duloxetine increased to 60 mg ambien prn for sleep Total Time Total Time Spent Total Time Spent (In Minutes): 32 Discharge Plan Discharge Items Patient Disposition: Home - Self-Care Reason For Visit: Abdominal Pain, Gastroparesis Discharge Diagnosis: gastroparesis Activity: Resume your previous activity Non-emergency contact: Primary Care Provider Call non-emergency contact if: you have any medication questions Follow-up/Referrals: Iliana Gurrola [Outside Practitioners] - 12/20/23 7:40 am Vince Vernon DO [Primary Care Provider] - Diet: Carb Consistent or DM2 Addtl Attending Provider Instructions: recommend followup with PCP in 1-2 weeks Changed oxycodone-acetaminophen to separate pain medicine. Take 650 mg of tylenol (acetaminophen) 650 mg every 6hours take the oxycodone as needed. Do not mix with the percocet if take tylenol every 6 hours given that percocet has acetaminophen which will lead to a toxic dose. We are also increasing your cymbalta to 60 mg instead of 30 mg. You will also be on the lidocaine patch. Please remember this can only be on for 12 hours, and then you will need to be off lidocaine patches for 12 hours. So use it in the daytime. You will be on tizandine instead of cyclobenzaprine. Pending Studies at Discharge: No Stand-Alone Forms: My [employer], Smoking Cessation Medications and DC Order Prescriptions: New oxycodone 5 mg Tablet 15 mg PO Q6HWA PRN (Reason: pain) Qty: 20 0RF Rx Instructions: take 1 tablet for mild pain, 2 tablets for moderate pain, 3 for severe pain duloxetine 60 mg Capsule,Delayed Release(Dr/Ec) 60 mg PO DAILY Qty: 30 0RF acetaminophen [Athenol] 325 mg tablet 650 mg PO QID Qty: 120 0RF tizanidine 4 mg Tablet 4 mg PO BID Qty: 60 0RF lidocaine 5 % Adhesive Patch,Medicated 1 patch transdermal QAM Qty: 14 0RF Continued prochlorperazine maleate 5 mg tablet 5 mg PO TID PRN (Reason: Nausea) lisinopril 20 mg Tablet 20 mg PO DAILY Qty: 30 0RF ropinirole 2 mg Tablet 4 mg PO HS zolpidem 10 mg tablet 10 mg PO HS PRN (Reason: Sleep) Rx Instructions: do not take within 3 hours of opiod pain med insulin lispro 100 unit/mL insulin pen 5 unit SUBCUT TIDM Rx Instructions: plus sliding scale insulin glargine [Lantus Solostar U-100 Insulin] 100 unit/mL (3 mL) insulin pen 10 unit SUBCUT HS metoprolol succinate [Toprol XL] 50 mg tablet extended release 24 hr 50 mg PO QAM albuterol sulfate 90 mcg/actuation HFA aerosol inhaler 2 puff INHALATION QID PRN (Reason: Shortness Of Breath Or Wheezing) prazosin 1 mg capsule 1 mg PO TID pantoprazole 40 mg tablet,delayed release (DR/EC) 40 mg PO BID docusate sodium 100 mg Capsule 100 mg PO BID alprazolam 1 mg tablet 1 mg PO TID PRN (Reason: Anxiety) clopidogrel [Plavix] 75 mg tablet 75 mg PO DAILY Qty: 30 0RF hydralazine 25 mg tablet 25 mg PO TID aspirin 81 mg Tablet,Delayed Release (Dr/Ec) 81 mg PO DAILY nifedipine 60 mg tablet extended release 24hr 120 mg PO DAILY Discontinued oxycodone-acetaminophen 7.5-325 mg tablet 2 tab PO Q4 PRN (Reason: Pain,severe) cyclobenzaprine 10 mg tablet 10 mg PO BID duloxetine 30 mg capsule,delayed release(DR/EC) 30 mg PO DAILY Discharge Orders: Discharge Order (Routine); Ordered 12/13/23 Ordered By: Ricardo Nava/Other Patient Handouts: Managing Type 2 Diabetes Admission Data Admit Date/Time: 12/03/23 13:51 Attending Provider: Ricardo Hernadez Admit Provider: Silvestre Best Primary Care Provider: Vince Vernon Other Providers: Silvestre Best; Vince Morrow; Deena Sandoval; Paolo Pritchett; Harvinder Lin Other Interventions: Discharge Summary Assessment (RN) Last Done: 12/13/23 11:16 Coding Level of Care Code 40874 INP/OBS DISCH >30 MIN Diagnoses Back pain M54.9 Nausea & vomiting R11.2 Vomiting type: unspecified HTN (hypertension) I10 Type 2 diabetes mellitus E11.69; Z79.4 Diabetes mellitus complication status: with other specified complication Diabetes mellitus usp insulin use: with usp use Chronic pain syndrome G89.4 PAD (peripheral artery disease) I73.9
== END 2023-12-13 12:01 | disposition home or self-care (01) | DRG 74 ==
LOC: EDINP 06:21 → ED 06:21 → SUATTDRO 10:59 → 3E 11:47 → SUATTDRO 12-03 13:51

== ENCOUNTER 2023-12-16 18:29 | Inpatient (IN) ==
[2023-12-16] MEDS: SODIUM CHLORIDE 0.9% 1,000 ML IV ONE (18:56)
--- NOTE | 2023-12-16 19:12 | Emergency Department Note ---
Impression & Plan Chronic pain, Constipation, Leukocytosis, Gastroparesis, Opioid dependence ED Provider Note NAME: EILEEN ESCOBAR AGE: 58 SEX: F : 1965 ARRIVES VIA: Walk-In INFORMANT: Patient ED PROVIDER(S): Simba Del Real MD CHIEF COMPLAINT: Abdominal pain, nausea/vomiting. PLAN: Disposition: Admit MEDICAL DECISION MAKING: The patient is a 58-year-old woman with a pmhx of diabetes, chronic pain / opioid dependence, depression, hypertension, PAD, gastroparesis and complicated history of right lower extremity osteomyelitis s/p right BKA who presents to the emergency department for ongoing flare of her chronic abdominal pain with nausea and vomiting and ongoing pain in her extremities after being admitted to this facility from 12/02-12/12 for similar symptoms where she had extensive testing including CT imaging of abdomen pelvis, vascular studies, MRI imaging which did not identify acute pathology for the patient's flare of symptoms. Patient reports she was doing well on day of discharge but her symptoms returned yesterday and it becomes severe. She reports she contacted the on-call provider from her discharge and was instructed to return the emergency department if she was not improving. On evaluation patient is uncomfortable but no acute distress, afebrile heart in 100s and blood pressure 160s/70s and vital signs otherwise stable. She appears clinically dry. She exhibits generalized abdominal discomfort without discrete tenderness. EKG without overt acute ischemia. CXR negative for acute cardiopulmonary process per my personal preliminary review/interpretation. WBC 19 K with neutrophil predominance though no left shift, nonspecific in the setting of the patient's report of intractable nausea and vomiting, similarly elevated in the past. H/H similar to prior. Platelets within normal limits. Chemistry without metabolic acidosis. Glucose is 306. Electrolytes and LFTs without significant abnormality. High-sensitivity troponin 15, nonspecific. Lipase is normal. UA without evidence of infection. CT abdomen pelvis was performed and demonstrates retention per my preliminary independent interpretation without overt obstruction. Formal report is pending. Patient was treated initially with IV fluid hydration, famotidine, diphenhydramine, IV APAP, Reglan. However the patient became upset that she was not receiving narcotics for her pain. I did meet with the patient and offered her her home oral medications as was recommended on her discharge before escalating to IV narcotics. However the patient is insistent that she will not accept these as she can just go home and take these. I did explain that in her best interest I recommend avoiding IV narcotics as her gastroparesis is likely a large part of her abdominal pain as exhibited on her CT imaging. I did offer her option for laxative such as lactulose and enema to help relieve her symptoms however the patient was angry and began threatening to leave where she will "take her oxycodone until her pain is better". She was additionally offered option for referral for admission given her that given the intractability of her symptoms with her leukocytosis. I again highlighted our proposed treatment plan was in her best interest. The patient's family member at the bedside expressed understanding of this and attempted to redirect the patient. The patient reports that when she was admitted here previously she received IV Dilaudid daily and cannot understand why she cannot receive this now. Ultimately the patient did agree with referral to hospital service but implied that if she is not going to receive IV narcotics she is going to leave. Radiology report of the CTA of the abdomen pelvis was subsequent completed and demonstrates no significant change from prior as previous high-grade stenosis of the right superficial femoral artery, right external iliac artery, and right common iliac artery were observed previously. Otherwise nonspecific thickening of the sigmoid colon is seen with significant stool throughout the colon consistent with constipation. Case was discussed with CARMINA Vazquez hospitalist, who will evaluate the patient for admission. Further management per admitting team. Triage Nursing notes reviewed and agree them. Prior/external medical records reviewed Vital Signs: reviewed Differential diagnosis: Gastroenteritis, food borne illness, infections, appendicitis, diverticulitis, inflammatory bowel disease, obstruction, GI bleed, biliary pathology, volvulus, as well as other pathologies. ER treatment provided: See below. Diagnostics interpreted by me: ECG: Sinus tachycardia, 102 bpm, no ectopy, no overt ST elevation or depression, QTc 401, QRS 80. Cardiac Monitoring: An order for continuous cardiac monitoring was placed and demonstrated Sinus tachycardia, 102 bpm, no ectopy. Laboratory studies: See below Imaging studies: See below Consultation(s): Case was discussed with CARMINA Vazquez hospitalist, who will evaluate the patient for admission. HPI: The patient is a 58-year-old woman with a pmhx of diabetes, chronic pain / opioid dependence, depression, hypertension, PAD, gastroparesis and complicated history of right lower extremity osteomyelitis s/p right BKA who presents to the emergency department for ongoing flare of her chronic abdominal pain with nausea and vomiting and ongoing pain in her extremities after being admitted to this facility from 12/02-12/12 for similar symptoms where she had extensive testing including CT imaging of abdomen pelvis, vascular studies, MRI imaging which did not identify acute pathology for the patient's flare of symptoms. Patient reports she was doing well on day of discharge but her symptoms returned yesterday and it becomes severe. She reports she contacted the on-call provider from her discharge and was instructed to return the emergency department if she was not improving. ROS: See above HPI for pertinent positives & negatives. A total of 10 systems reviewed and were otherwise negative. VITALS:See Below PHYSICAL EXAMINATION: GENERAL: Awake, alert, chronically ill-appearing, anxious/restless/tearful, in no distress HENT: Normocephalic, atraumatic. Oropharynx with dry mucous membranes and otherwise unremarkable. EYES: Normal conjunctiva. Sclera non-icteric. NECK: Supple. No nuchal rigidity. FROM. No JVD. RESPIRATORY: Clear to auscultation. CARDIAC: Tachycardic rate, normal rhythm. Extremities warm and well perfused. Pulses equal. ABDOMEN: Soft, non-distended. Generalized abdominal discomfort without discrete tenderness to palpation. No rebound or guarding. MUSCULOSKELETAL: Chest examination reveals no tenderness. The back is symmetrical on inspection without obvious abnormality. There is no CVA tenderness to palpation. No joint edema. LOWER EXTREMITIES: Right BKA. Left lower extremity without edema or discoloration. Pedal pulses are palpable. NEURO: Normal sensorium. No sensory or motor deficits noted. SKIN: No rash or jaundice noted. ED COURSE: PDMP: Reviewed : 80 prescriptions from 11 different providers. Simba Del Real MD Past Med/Surg History Medical History PAD (peripheral artery disease) Hypertension Groin pain Foot pain Costochondritis Infection of left great toe due to methicillin resistant Staphylococcus aureus (MRSA) Diastolic CHF COVID-19 Osteomyelitis of great toe of left foot Chronic pain syndrome Opiate dependence Opiate abuse, continuous Acidosis, lactic Acute dehydration Gastroenteritis Sepsis Shortness of breath Opioid dependence Iron deficiency anemia Hypomagnesemia Diabetic peripheral neuropathy Insomnia 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 No issues per anesthesia postop progress note. HTN (hypertension) Anemia Hyponatremia Cellulitis Peripheral neuropathy Benzodiazepine withdrawal Right second toe ulcer Diabetes mellitus type 2, uncontrolled Hyperlipidemia Seizures Gastritis Depression Chronic back pain Nonobstructive atherosclerosis of coronary artery Numbness of lower extremity Hypertriglyceridemia CAD (coronary artery disease) History of tobacco use Benzodiazepine dependence Restless leg syndrome Diabetic neuropathy Abdominal pain Gastroparesis Esophagitis determined by endoscopy GIB (gastrointestinal bleeding) Insulin dependent diabetes mellitus DM2 (diabetes mellitus, type 2) IDDM, A1c 07/2021-11% Surgical History History of amputation of great toe History of right below knee amputation (12/22/21) Right Below Knee Amputation(Right) - Davon Good MD, FACS History of lumbar surgery History of esophagogastroduodenoscopy (EGD) Family History Mother , age 63 Myocardial infarction Father , age 68 or 69 Myocardial infarction Brother S/P CABG (coronary artery bypass graft) Sister Myocardial infarction x 3; she is 57yo Social History Smoking Status: Former smoker Tobacco Type: Cigarettes packs per day: 0.5; Cigarettes Per Day: 20; Second Hand Exposure: No; Do You Dip or Chew Tobacco: No; Hx Alcohol Use: No Hx Substance Use: Yes Prescribed Medications: Marijuana Last Used Substance: Days (ago) Last Used Substance Other:: Medical marijuana Substance Use Type Other:: Medical marijuana Preferred Language: Albanian Communication Ability: Effective Visual Impairment: No Limitations Hearing Ability: Normal Director Of Hemophilia Required: No Beliefs That Will Affect Care: None marital status: Current Living Situation: Spouse current occupational status: unemployed 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 Other Information That Helps Us Care for You: No other: raising a grandchild as well; lives in [place] Feels Safe at Home: Yes Safety Concerns: Feels Safe At This Time Diet: diabetic and low salt during the past year weight has: remained stable Assistive Devices: Walker and Wheelchair Allergies Allergies Allergy/AdvReac Type Severity Reaction Status Date / Time morphine Allergy Severe blisters Verified 12/16/23 18:57 in mouth Sulfa (Sulfonamide Allergy Severe rash/swelli Verified 12/16/23 18:57 Antibiotics) ng amoxicillin [From Augmentin] Allergy Intermediate itching/power Verified 12/16/23 18:57 h ceftriaxone [From Rocephin] Allergy Intermediate Hives Verified 12/16/23 18:57 clavulanic acid Allergy Intermediate itching/power Verified 12/16/23 18:57 [From Augmentin] h erythromycin base Allergy Intermediate Hives Verified 12/16/23 18:57 vancomycin Allergy Intermediate YULIYA Verified 12/16/23 18:57 SYNDROME---CAN TAKE IF VERY SLOW DRIP. adhesive AdvReac Intermediate DERMABOND Verified 12/16/23 18:57 excoriates skin gabapentin AdvReac Intermediate Nausea Verified 12/16/23 18:57 iron [From Venofer] AdvReac Intermediate Hypertensio Verified 12/16/23 18:57 n Home Meds Home Medications Medication Instructions Recorded Confirmed ropinirole 2 mg tablet 4 mg PO HS 10/19/20 12/16/23 insulin lispro 100 unit/mL 5 unit subcut TIDM 03/08/22 12/16/23 subcutaneous pen zolpidem 10 mg tablet 10 mg PO HS PRN Sleep 03/08/22 12/16/23 insulin glargine 100 unit/mL (3 10 unit subcut HS 10/17/22 12/16/23 mL) subcutaneous pen (Lantus Solostar U-100 Insulin) albuterol sulfate 90 mcg/actuation 2 puff inhalation QID PRN 05/08/23 12/16/23 aerosol inhaler Shortness Of Breath Or Wheezing alprazolam 1 mg tablet 1 mg PO TID PRN Anxiety 05/08/23 12/16/23 docusate sodium 100 mg capsule 100 mg PO BID 05/08/23 12/16/23 metoprolol succinate 50 mg 50 mg PO QAM 05/08/23 12/16/23 tablet,extended release 24 hr (Toprol XL) pantoprazole 40 mg tablet,delayed 40 mg PO BID 05/08/23 12/16/23 release prazosin 1 mg capsule 1 mg PO TID 05/08/23 12/16/23 prochlorperazine maleate 5 mg 5 mg PO TID PRN Nausea 06/13/23 12/16/23 tablet aspirin 81 mg tablet,delayed 81 mg PO DAILY 09/19/23 12/16/23 release hydralazine 25 mg tablet 25 mg PO TID 09/19/23 12/16/23 nifedipine 60 mg tablet,extended 120 mg PO DAILY 09/19/23 12/16/23 release 24 hr Previous Rx's Medication Instructions Recorded clopidogrel 75 mg tablet (Plavix) 75 mg PO DAILY #30 tabs 05/10/23 lisinopril 20 mg tablet 20 mg PO DAILY #30 tabs 08/09/23 acetaminophen 325 mg tablet 650 mg (2 x 325 mg) PO QID #120 12/13/23 (Athenol) tabs duloxetine 60 mg capsule,delayed 60 mg PO DAILY #30 caps 12/13/23 release lidocaine 5 % topical patch 1 patch transdermal QAM #14 ea 12/13/23 oxycodone 5 mg tablet 15 mg (3 x 5 mg) PO Q6HWA PRN pain 12/13/23 #20 tabs tizanidine 4 mg tablet 4 mg PO BID #60 tabs 12/13/23 Results & Data (ED) Vital Signs Vital Signs - 24 hr 12/16/23 18:37 12/16/23 18:52 12/16/23 18:58 Temperature 36.5 C Temperature Source Temporal Artery Scan Pulse Rate 100 H 101 H 99 H Pulse Rate [Apical] Pulse Rhythm Regular Pulse Strength Normal Respiratory Rate 20 20 Respiratory Effort / Characteristics Non-Labored Spontaneous Respiratory Depth Normal Respiratory Pattern Regular Blood Pressure 163/75 H Blood Pressure [Right Arm] Blood Pressure Mean 104 Blood Pressure Mean [Right Arm] Blood Pressure Position Sitting Blood Pressure Position [Right Arm] Pulse Oximetry 95 94 Oxygen Delivery Method Room Air Room Air Sepsis Recent Fever Within 48 Hours No Sepsis New/Unexplained Change in Mental Status No Sepsis Action Taken by Nursing No Action Required 12/16/23 19:02 12/16/23 20:54 Temperature Temperature Source Pulse Rate Pulse Rate [Apical] 78 83 Pulse Rhythm Pulse Strength Respiratory Rate 20 18 Respiratory Effort / Characteristics Non-Labored Spontaneous Respiratory Depth Normal Respiratory Pattern Regular Blood Pressure Blood Pressure [Right Arm] 168/86 H 182/82 H Blood Pressure Mean Blood Pressure Mean [Right Arm] 113 115 Blood Pressure Position Blood Pressure Position [Right Arm] Sitting Sitting Pulse Oximetry 96 97 Oxygen Delivery Method Room Air Room Air Sepsis Recent Fever Within 48 Hours Sepsis New/Unexplained Change in Mental Status Sepsis Action Taken by Nursing Laboratory Data Attestation: I reviewed the patient's lab results. 12/16/23 18:57 12/16/23 18:57 Lab Results 12/16/23 12/16/23 12/16/23 Range/Units 18:53 18:57 20:42 WBC 19.25 H (4.8-10.8) K/ul RBC 4.36 (4.20-5.40) M/uL Hgb 11.7 L (12.0-16.0) g/dl Hct 35.7 L (37.0-47.0) % MCV 81.9 (80.0-100.0) fL MCH 26.8 (25.0-34.0) pg MCHC 32.8 (32.0-36.0) g/dL RDW Std Deviation 43.1 (36.4-46.3) fL RDW Coeff of Maria Del Carmen 14.6 H (11.5-14.5) % Plt Count 349 (130-400) K/uL MPV 9.8 (9.4-12.4) fL Immature Gran % (Auto) 0.8 % Neut % (Auto) 65.7 % Lymph % (Auto) 22.6 % Vernon % (Auto) 7.3 % Eos % (Auto) 3.0 % Baso % (Auto) 0.6 % Neut # (Auto) 12.64 H (1.40-6.50) K/uL Lymph # (Auto) 4.36 H (1.20-3.40) K/uL Vernon # (Auto) 1.41 H (0.11-0.59) K/uL Eos # (Auto) 0.57 H (0.00-0.50) K/uL Baso # (Auto) 0.12 (0.00-0.20) K/uL Immature Gran # (Auto) 0.15 (0.01-0.20) K/uL PT 9.5 (9.0-12.0) Seconds INR 0.9 (0.9-1.1) Sodium 135 L (136-145) mmol/L Potassium 4.2 (3.5-5.1) mmol/L Chloride 99 (98-107) mmol/L Carbon Dioxide 29 (21-32) mmol/L Anion Gap 7 (3-11) BUN 17 (6-23) mg/dl Creatinine 0.46 L (0.6-1.2) mg/dl Est Cr Clr Drug Dosing 114.8 ml/min Est GFR ( Amer) 126.2 ml/min Est GFR (Non-Af Amer) 108.9 ml/min BUN/Creatinine Ratio 37.0 H (10-20) Glucose 306 H* (70-99(Fasting)) mg/dl Calcium 9.7 (8.6-10.3) mg/dl Total Bilirubin 0.2 (0.2-1.0) mg/dl Direct Bilirubin 0.1 (0-0.2) mg/dl AST 11 L (13-39) U/L ALT 15 (7-52) U/L Alkaline Phosphatase 78 (34-104) U/L Troponin I High Sens 15.0 H 14.2 H (0-14) pg/ml Total Protein 7.5 (6.0-8.3) gm/dl Albumin 4.6 (3.4-5.0) gm/dl Globulin 2.9 (2.5-4.0) gm/dl Albumin/Globulin Ratio 1.6 (0.9-2) Lipase 11 (11-82) U/L Urine Color Yellow Urine Appearance Clear (Clear) Urine pH 6.5 (4.5-7.5) Ur Specific [place] 1.028 (1.000-1.030) Urine Protein 2+ H (Negative) Urine Glucose (UA) 3+ H (Negative) Urine Ketones Trace H (Negative) Urine Blood Negative (Negative) Urine Nitrite Negative (Negative) Urine Bilirubin Negative (Negative) Urine Urobilinogen Negative (Negative) Ur Leukocyte Esterase Negative (Negative) Urine WBC (Auto) 0-5 (0-5) /hpf Urine RBC (Auto) 0-2 (0-2) /hpf U Hyaline Cast (Auto) 0-2 (0-2) /lpf U Epithel Cells (Auto) 3-5 H (0-2) /hpf Urine Bacteria (Auto) None Seen (None Seen) Administered Medications Diphenhydramine HCl (Diphenhydramine 50 Mg/Ml Vial) 25 mg IV Q3H PRN PRN Reason: Prophylaxis PRIOR TO DILAUDID Stop: 01/15/24 21:43 Last Admin: 12/17/23 02:57 Dose: 25 mg Documented By: Admin: 12/16/23 22:08 Dose: 25 mg Documented By: Hydromorphone HCl (Hydromorphone Inj 0.5 Mg/0.5 Ml Syr) 0.5 mg IV Q3H PRN PRN Reason: Pain (6,7,8,9,10) Stop: 12/30/23 21:43 Last Admin: 12/16/23 22:08 Dose: 0.5 mg Documented By: Insulin Aspart (Insulin Aspart Per Unit Charge) 0 units SC ACHS [facility] Stop: 01/16/24 00:00 Last Admin: 12/16/23 23:52 Dose: 3 units Documented By: SHAILESH Co-signed By: KASI Insulin Glargine (Lantus Per Unit Charge) 10 units SQ HS [facility] Stop: 01/15/24 23:44 Last Admin: 12/16/23 23:53 Dose: 10 units Documented By: SHAILESH Co-signed By: KASI Discontinued Medications Diphenhydramine HCl (Diphenhydramine 50 Mg/Ml Vial) 25 mg IV NOW STA Stop: 12/16/23 19:20 Last Admin: 12/16/23 19:25 Dose: 25 mg Documented By: Hydromorphone HCl (Hydromorphone Inj 0.5 Mg/0.5 Ml Syr) 0.5 mg IV NOW STA Stop: 12/17/23 00:07 Last Admin: 12/17/23 00:38 Dose: 0.5 mg Documented By: SHAILESH Hydromorphone HCl (Hydromorphone Inj 1 Mg/Ml Syringe) 1 mg IV NOW STA Stop: 12/17/23 02:46 Last Admin: 12/17/23 02:57 Dose: 1 mg Documented By: MELISSA Sodium Chloride (Nss) 1,000 mls @ 999 mls/hr IV .Q1H1M ONE Stop: 12/16/23 19:45 Last Infusion: 12/16/23 19:33 Dose: Infused Documented By: Admin: 12/16/23 18:56 Dose: 999 mls/hr Documented By: Acetaminophen (Ofirmev) 1,000 mg in 100 mls @ 400 mls/hr IV NOW STA Stop: 12/16/23 19:33 Last Admin: 12/16/23 20:10 Dose: Not Given Documented By: Famotidine (Pepcid 20mg Iv Push) 20 mg in 5 mls @ 2.5 mls/min IV NOW STA Stop: 12/16/23 19:20 Last Admin: 12/16/23 19:25 Dose: 2.5 mls/min Documented By: Ioversol (Optiray 320 125ml) 119 ml IV ONCE ONE Stop: 12/16/23 19:47 Last Admin: 12/16/23 19:46 Dose: 119 ml Documented By: VAHID Metoclopramide HCl (Metoclopramide Hcl Inj 5 Mg/Ml 2 Ml Vial) 5 mg IV ONE ONE Stop: 12/16/23 19:20 Last Admin: 12/16/23 19:25 Dose: 5 mg Documented By: Imaging Data Radiologist's Impression: Abdomen/Pelvis CTA 12/16/23 19:17 Exam(s): CTA ABDOMEN + PELVIS With Contrast IV Amt: 119 opit 320 EXAM: CT Angiography Abdomen and Pelvis With Intravenous Contrast CLINICAL HISTORY: Abdominal Pain. TECHNIQUE: Axial computed tomographic angiography images of the abdomen and pelvis with intravenous contrast. CTDI is 17.22 mGy and DLP is 814.17 mGy-cm. Automated exposure control was utilized for the study. A dose lowering technique was utilized adhering to the principles of ALARA. MIP reconstructed images were created and reviewed. CONTRAST: Patient received 119 opti 320 of IV contrast COMPARISON: CT abdomen and pelvis 11/28/2023 FINDINGS: VASCULATURE: Aorta: Mild atherosclerosis. No abdominal aortic aneurysm. No dissection. Celiac trunk and mesenteric arteries: No acute findings. No occlusion or significant stenosis. Renal arteries: No acute findings. No occlusion or significant stenosis. Iliac arteries: High-grade stenosis of the right external iliac artery resulting in approximately 75% stenosis. Atherosclerosis of the right common iliac artery results in approximately 50% stenosis. There is atherosclerosis of the left iliac arteries without significant stenosis. There is high-grade stenosis of the right superficial femoral artery resulting in approximately 80% stenosis. Lung bases: Unremarkable. No mass. No consolidation. ABDOMEN: Liver: Unremarkable. No mass. Gallbladder and bile ducts: Cholecystectomy. No ductal dilation. Pancreas: Unremarkable. No ductal dilation. No mass. Spleen: Unremarkable. No splenomegaly. Adrenals: Unremarkable. No mass. Kidneys and ureters: Unremarkable. No hydronephrosis. No solid mass. Stomach and bowel: There is thickening of the wall of the sigmoid colon which is nonspecific. Significant stool throughout the colon is concern for constipation. There is significant debris in the stomach, cannot exclude bezoar. No obstruction. PELVIS: Appendix: No findings to suggest acute appendicitis. Bladder: Unremarkable. No mass. Reproductive: Unremarkable as visualized. ABDOMEN and PELVIS: Intraperitoneal space: Unremarkable. No significant fluid collection. No free air. Bones/joints: There are degenerative changes of the spine. No acute fracture. Soft tissues: Soft tissue nodules of the subcutaneous fat of the right lower quadrant. Lymph nodes: Unremarkable. No enlarged lymph nodes. IMPRESSION: 1. There is high-grade stenosis of the right superficial femoral artery resulting in approximately 80% stenosis. 2. High-grade stenosis of the right external iliac artery resulting in approximately 75% stenosis. 3. Atherosclerosis of the right common iliac artery results in approximately 50% stenosis. 4. There is thickening of the wall of the sigmoid colon which is nonspecific. 5. Significant stool throughout the colon is concern for constipation. 6. There is significant debris in the stomach, cannot exclude bezoar. 7. Subcutaneous nodules of the subcutaneous fat of the right lower quadrant is nonspecific. Electronically signed by: Kandace Taylor MD 12/16/23 20:47 PM Chest X-Ray 12/16/23 19:23 XR chest 1V portable HISTORY: Generalized abdominal pain. COMPARISON: Chest 12/01/2023. FINDINGS: The lungs are clear. Cardiac silhouette is normal in size. No pleural effusions. No pneumothorax. IMPRESSION: No acute process. ACT 112: Negative or not required by law. Electronically signed by: Ernst Murray M.D. 12/16/2023 7:44 PM Discharge Plan Visit Data Chief Complaint: Illness Stated Complaint: SX NOT GETTING BETTER,D/C SUNDAY ED Provider: Simba Del Real Discharge Problem: Chronic pain, Constipation, Leukocytosis, Gastroparesis, Opioid dependence Patient Disposition: Admitted As Inpatient Discharge Instructions Interventions: ED Discharge Assessment Last Done: 12/16/23 22:56 Discharge Problem: Chronic pain Qualifiers: Chronic pain type: other chronic pain Qualified Code(s): G89.29 - Other chronic pain Constipation Qualifiers: Constipation type: unspecified constipation type Qualified Code(s): K59.00 - Constipation, unspecified Leukocytosis Qualifiers: Leukocytosis type: unspecified Qualified Code(s): D72.829 - Elevated white blood cell count, unspecified Opioid dependence Qualifiers: Substance use status: with unspecified opioid-induced disorder Qualified Code(s): F11.29 - Opioid dependence with unspecified opioid-induced disorder
[2023-12-16 19:13] LABS: Basophils # (auto) 0.12 K/uL (0.00-0.20); Basophils % (auto) 0.6 %; Eosinophils # (auto) 0.57 K/uL (0.00-0.50); Hematocrit (blood only) 35.7 % (37.0-47.0); Hemoglobin 11.7 g/dl (12.0-16.0); Immature Granulocytes # (auto) 0.15 K/uL (0.01-0.20); Immature Granulocytes % (auto) 0.8 %; Lymphocytes # (auto) 4.36 K/uL (1.20-3.40); Lymphocytes % (auto) 22.6 %; Mean Corpuscular Hemoglobin 26.8 pg (25.0-34.0); Mean Corpuscular Hgb Conc 32.8 g/dL (32.0-36.0); Mean Corpuscular Volume 81.9 fL (80.0-100.0); Mean Platelet Volume 9.8 fL (9.4-12.4); Monocytes # (auto) 1.41 K/uL (0.11-0.59); Monocytes % (auto) 7.3 %; Neutrophils # (auto) 12.64 K/uL (1.40-6.50); Neutrophils % (auto) 65.7 %; Platelet Count 349 K/uL (130-400); RDW Coefficient of Variation 14.6 % (11.5-14.5); RDW Standard Deviation 43.1 fL (36.4-46.3); Red Blood Count 4.36 M/uL (4.20-5.40); White Blood Count 19.25 K/ul (4.8-10.8)
[2023-12-16 19:14] LABS: Appearance Urine Clear (Clear); Bacteria Urine Automated None Seen (None Seen); Bilirubin Urine Negative (Negative); Blood Urine Negative (Negative); Cast Urine Automated 0-2 /lpf (0-2); Color Urine Yellow; Glucose Urine UA 3+ (Negative); Ketones Urine Trace (Negative); Leukocyte Esterase Urine Negative (Negative); Nitrite Urine Negative (Negative); Protein Urine 2+ (Negative); RBC Urine Automated 0-2 /hpf (0-2); Specific Gravity Urine 1.028 (1.000-1.030); Urobilinogen Urine Negative (Negative); WBC Urine Automated 0-5 /hpf (0-5); pH Urine 6.5 (4.5-7.5)
[2023-12-16 19:19] LABS: INR 0.9 (0.9-1.1); Prothrombin Time 9.5 Seconds (9.0-12.0)
[2023-12-16] MEDS: METOCLOPRAMIDE HCL INJ 5 MG/ML 2 ML VIAL IV ONE (19:25)
[2023-12-16] MEDS: diphenhydrAMINE 50 MG/ML VIAL IV STA (19:25)
[2023-12-16] MEDS: FAMOTIDINE 20MG IV PUSH 20 MG/5 ML SYR IV STA (19:25)
[2023-12-16 19:36] LABS: Albumin Globulin Ratio 1.6 (0.9-2); Albumin Level 4.6 gm/dl (3.4-5.0); Bilirubin Direct 0.1 mg/dl (0-0.2); Bilirubin,Total 0.2 mg/dl (0.2-1.0); Calcium 9.7 mg/dl (8.6-10.3); Creatinine Clr Calc Pharmacy 114.8 ml/min; Est GFR (African American) 126.2 ml/min; Est GFR (Non-African American) 108.9 ml/min; Globulin 2.9 gm/dl (2.5-4.0); Potassium 4.2 mmol/L (3.5-5.1); Total Protein 7.5 gm/dl (6.0-8.3)
[2023-12-16] MEDS: OPTIRAY 320 125ml IV ONE (19:46)
--- NOTE | 2023-12-16 19:47 | XRay Report ---
XR chest 1V portable HISTORY: Generalized abdominal pain. COMPARISON: Chest 12/01/2023. FINDINGS: The lungs are clear. Cardiac silhouette is normal in size. No pleural effusions. No pneumot horax. IMPRESSION: No acute process. ACT 112: Negative or not required by law. Electronically signed by: Ernst Murray M.D. 12/16/2023 7:44 PM
[2023-12-16] MEDS: ACETAMINOPHEN 1,000 MG/100 ML VIAL IV STA (20:10)
--- NOTE | 2023-12-16 20:49 | CT Scan Report ---
Exam(s): CTA ABDOMEN + PELVIS With Contrast IV Amt: 119 opit 320 EXAM: CT Angiography Abdomen and Pelvis With Intravenous Contrast CLINICAL HISTORY: Abdominal Pain. TECHNIQUE: Axial computed tomographic angiography images of the abdomen and pelvis with intravenous contrast. CTDI is 17.22 mGy and DLP is 814.17 mGy-cm. Automated exposure control was utilized for the study. A dose lowering technique was utilized adhering to the principles of ALARA. MIP reconstructed images were created and reviewed. CONTRAST: Patient received 119 opti 320 of IV contrast COMPARISON: CT abdomen and pelvis 11/28/2023 FINDINGS: VASCULATURE: Aorta: Mild atherosclerosis. No abdominal aortic aneurysm. No dissection. Celiac trunk and mesenteric arteries: No acute findings. No occlusion or significant stenosis. Renal arteries: No acute findings. No occlusion or significant stenosis. Iliac arteries: High-grade stenosis of the right external iliac artery resulting in approximately 75% stenosis. Atherosclerosis of the right common iliac artery results in approximately 50% stenosis. There is atherosclerosis of the left iliac arteries without significant stenosis. There is high-grade stenosis of the right superficial femoral artery resulting in approximately 80% stenosis. Lung bases: Unremarkable. No mass. No consolidation. ABDOMEN: Liver: Unremarkable. No mass. Gallbladder and bile ducts: Cholecystectomy. No ductal dilation. Pancreas: Unremarkable. No ductal dilation. No mass. Spleen: Unremarkable. No splenomegaly. Adrenals: Unremarkable. No mass. Kidneys and ureters: Unremarkable. No hydronephrosis. No solid mass. Stomach and bowel: There is thickening of the wall of the sigmoid colon which is nonspecific. Significant stool throughout the colon is concern for constipation. There is significant debris in the stomach, cannot exclude bezoar. No obstruction. PELVIS: Appendix: No findings to suggest acute appendicitis. Bladder: Unremarkable. No mass. Reproductive: Unremarkable as visualized. ABDOMEN and PELVIS: Intraperitoneal space: Unremarkable. No significant fluid collection. No free air. Bones/joints: There are degenerative changes of the spine. No acute fracture. Soft tissues: Soft tissue nodules of the subcutaneous fat of the right lower quadrant. Lymph nodes: Unremarkable. No enlarged lymph nodes. IMPRESSION: 1. There is high-grade stenosis of the right superficial femoral artery resulting in approximately 80% stenosis. 2. High-grade stenosis of the right external iliac artery resulting in approximately 75% stenosis. 3. Atherosclerosis of the right common iliac artery results in approximately 50% stenosis. 4. There is thickening of the wall of the sigmoid colon which is nonspecific. 5. Significant stool throughout the colon is concern for constipation. 6. There is significant debris in the stomach, cannot exclude bezoar. 7. Subcutaneous nodules of the subcutaneous fat of the right lower quadrant is nonspecific. Electronically signed by: Kandace Taylor MD 12/16/23 20:47 PM
[2023-12-16] MEDS ORDERED: HYDROmorphone INJ 0.5 MG/0.5 ML SYR IV PRN (21:44)
--- NOTE | 2023-12-16 21:53 | History & Physical Report ---
Date of Service December 16, 2023 Assessment & Plan (1) Chronic pain: Plan: -Recurrent episodes likely related to gastroparesis and constipation -No acute pathology on CT, other than possible constipation. -Dilaudid as needed pain meds started -Antiemetics as needed. -Diet started. -pain managment consulted. (2) Leukocytosis: Plan: -Suspected stress reaction related to vomiting, -Continue to trend WBC (3) Gastroparesis: Plan: -Most likely causing her nausea and vomiting. -Zofran and Compazine as needed (4) Opioid dependence: Plan: -Caution with overuse of opioids as patient is a chronic user. (5) Type 2 diabetes mellitus: Plan: -Patient's home regimen held on admission -Continue BSG checks, sliding-scale insulin, hypoglycemic protocol -pharmacy consult placed. (6) HTN (hypertension): Plan: -Continue her nifedipine, lisinopril and metoprolol -Hydralazine 25mg TID. (7) Depression: Plan: -Continue duloxetine 30mg PO daily -Xanax as needed. (8) PAD (peripheral artery disease): Plan: -Continue on aspirin and Plavix. -On CT :stenosis of the right superficial femoral artery 80%, stenosis of the right external iliac artery 75%, osteoarthrosis of the right common iliac artery 50%. No significant change from previously. History of Present Illness Chief Complaint: Abdominal/groin pain Primary Care Provider: Vince Vernon DO The patient is a 58-year-old woman with a pmhx of diabetes, chronic pain / opioid dependence, depression, hypertension, PAD, gastroparesis and complicated history of right lower extremity osteomyelitis who presents emergency department for ongoing flare of her chronic abdominal pain with nausea and vomiting. Reported and pain in her extremities after being admitted to this facility from 12/02-12/12 for similar symptoms where she had extensive testing. She states that the pain is unbearable and in her groin and abdomen. States that the oxycodone did not really help. She also states that she does not feel constipated and has been going to the bathroom almost every hour. Allergies Allergy/AdvReac Type Severity Reaction Status Date / Time morphine Allergy Severe blisters Verified 12/16/23 18:57 in mouth Sulfa (Sulfonamide Allergy Severe rash/swelli Verified 12/16/23 18:57 Antibiotics) ng amoxicillin [From Augmentin] Allergy Intermediate itching/power Verified 12/16/23 18:57 h ceftriaxone [From Rocephin] Allergy Intermediate Hives Verified 12/16/23 18:57 clavulanic acid Allergy Intermediate itching/power Verified 12/16/23 18:57 [From Augmentin] h erythromycin base Allergy Intermediate Hives Verified 12/16/23 18:57 vancomycin Allergy Intermediate YULIYA Verified 12/16/23 18:57 SYNDROME---CAN TAKE IF VERY SLOW DRIP. adhesive AdvReac Intermediate DERMABOND Verified 12/16/23 18:57 excoriates skin gabapentin AdvReac Intermediate Nausea Verified 12/16/23 18:57 iron [From Venofer] AdvReac Intermediate Hypertensio Verified 12/16/23 18:57 n Home Medications Medication Instructions Recorded Confirmed Type ropinirole 2 mg tablet 4 mg PO HS 10/19/20 12/16/23 History insulin lispro 100 unit/mL 5 unit subcut TIDM 03/08/22 12/16/23 History subcutaneous pen zolpidem 10 mg tablet 10 mg PO HS PRN Sleep 03/08/22 12/16/23 History insulin glargine 100 unit/mL (3 10 unit subcut HS 10/17/22 12/16/23 History mL) subcutaneous pen (Lantus Solostar U-100 Insulin) albuterol sulfate 90 mcg/actuation 2 puff inhalation QID PRN 05/08/23 12/16/23 History aerosol inhaler Shortness Of Breath Or Wheezing alprazolam 1 mg tablet 1 mg PO TID PRN Anxiety 05/08/23 12/16/23 History docusate sodium 100 mg capsule 100 mg PO BID 05/08/23 12/16/23 History metoprolol succinate 50 mg 50 mg PO QAM 05/08/23 12/16/23 History tablet,extended release 24 hr (Toprol XL) pantoprazole 40 mg tablet,delayed 40 mg PO BID 05/08/23 12/16/23 History release prazosin 1 mg capsule 1 mg PO TID 05/08/23 12/16/23 History clopidogrel 75 mg tablet (Plavix) 75 mg PO DAILY #30 tabs 05/10/23 12/16/23 Rx prochlorperazine maleate 5 mg 5 mg PO TID PRN Nausea 06/13/23 12/16/23 History tablet lisinopril 20 mg tablet 20 mg PO DAILY #30 tabs 08/09/23 12/16/23 Rx aspirin 81 mg tablet,delayed 81 mg PO DAILY 09/19/23 12/16/23 History release hydralazine 25 mg tablet 25 mg PO TID 09/19/23 12/16/23 History nifedipine 60 mg tablet,extended 120 mg PO DAILY 09/19/23 12/16/23 History release 24 hr acetaminophen 325 mg tablet 650 mg (2 x 325 mg) PO QID #120 12/13/23 12/16/23 Rx (Athenol) tabs duloxetine 60 mg capsule,delayed 60 mg PO DAILY #30 caps 12/13/23 12/16/23 Rx release lidocaine 5 % topical patch 1 patch transdermal QAM #14 ea 12/13/23 12/16/23 Rx oxycodone 5 mg tablet 15 mg (3 x 5 mg) PO Q6HWA PRN pain 12/13/23 12/16/23 Rx #20 tabs tizanidine 4 mg tablet 4 mg PO BID #60 tabs 12/13/23 12/16/23 Rx Past Med/Surg History Medical History PAD (peripheral artery disease) Hypertension Groin pain Foot pain Costochondritis Infection of left great toe due to methicillin resistant Staphylococcus aureus (MRSA) Diastolic CHF COVID-19 Osteomyelitis of great toe of left foot Chronic pain syndrome Opiate dependence Opiate abuse, continuous Acidosis, lactic Acute dehydration Gastroenteritis Sepsis Shortness of breath Opioid dependence Iron deficiency anemia Hypomagnesemia Diabetic peripheral neuropathy Insomnia 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 No issues per anesthesia postop progress note. HTN (hypertension) Anemia Hyponatremia Cellulitis Peripheral neuropathy Benzodiazepine withdrawal Right second toe ulcer Diabetes mellitus type 2, uncontrolled Hyperlipidemia Seizures Gastritis Depression Chronic back pain Nonobstructive atherosclerosis of coronary artery Numbness of lower extremity Hypertriglyceridemia CAD (coronary artery disease) History of tobacco use Benzodiazepine dependence Restless leg syndrome Diabetic neuropathy Abdominal pain Gastroparesis Esophagitis determined by endoscopy GIB (gastrointestinal bleeding) Insulin dependent diabetes mellitus DM2 (diabetes mellitus, type 2) IDDM, A1c 07/2021-11% Surgical History History of amputation of great toe History of right below knee amputation (12/22/21) Right Below Knee Amputation(Right) - Davon Good MD, FACS History of lumbar surgery History of esophagogastroduodenoscopy (EGD) Family History Mother , age 63 Myocardial infarction Father , age 68 or 69 Myocardial infarction Brother S/P CABG (coronary artery bypass graft) Sister Myocardial infarction x 3; she is 57yo Social History Smoking Status: Former smoker Tobacco Type: Cigarettes packs per day: 0.5; Cigarettes Per Day: 20; Second Hand Exposure: No; Do You Dip or Chew Tobacco: No; Hx Alcohol Use: No Hx Substance Use: Yes Prescribed Medications: Marijuana Last Used Substance: Days (ago) Last Used Substance Other:: Medical marijuana Substance Use Type Other:: Medical marijuana Preferred Language: Latvian Communication Ability: Effective Visual Impairment: No Limitations Hearing Ability: Normal Supervisor [place] Required: No Beliefs That Will Affect Care: None marital status: Current Living Situation: Spouse current occupational status: unemployed 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 Other Information That Helps Us Care for You: No other: raising a grandchild as well; lives in [place] Feels Safe at Home: Yes Safety Concerns: Feels Safe At This Time Diet: diabetic and low salt during the past year weight has: remained stable Assistive Devices: Walker and Wheelchair Review of Systems Review of Systems: All systems reviewed & are unremarkable except as noted in Subjective Physical Exam Physical Exam: GENERAL: Awake, alert, anxious/restless/tearful-appearing, in no distress HENT: Normocephalic, atraumatic. Oropharynx with dry mucous membranes and otherwise unremarkable. EYES: Normal conjunctiva. Sclera non-icteric. NECK: Supple. No nuchal rigidity. FROM. No JVD. RESPIRATORY: Clear to auscultation. CARDIAC: Regular rate, normal rhythm. Extremities warm and well perfused. Pulses equal. ABDOMEN: Soft, non-distended. Generalized abdominal discomfort without discrete tenderness to palpation. No rebound or guarding. MUSCULOSKELETAL: Chest examination reveals no tenderness. The back is symmetrical on inspection without obvious abnormality. There is no CVA tenderness to palpation. No joint edema. LOWER EXTREMITIES: NEURO: Normal sensorium. No sensory or motor deficits noted. SKIN: No rash or jaundice noted. Results & Data Results & Data Vital Signs (Past 12 Hours) Vital Signs Temp Pulse Pulse Resp BP BP Pulse Ox 12/16/23 20:54 83 18 182/82 H 97 12/16/23 19:02 78 20 168/86 H 96 12/16/23 18:58 99 H 20 94 12/16/23 18:52 101 H 12/16/23 18:37 36.5 C 100 H 20 163/75 H 95 O2 Del Method 12/16/23 20:54 Room Air 12/16/23 19:02 Room Air 12/16/23 18:58 Room Air 12/16/23 18:52 12/16/23 18:37 Room Air Supervising Physician Co-Signing Physician Notes Attending addendum: I have physically seen this patient, have supervised the medical residents activities, and agree with the H&P unless as otherwise noted. Assessment and Plan: Chronic abdominal pain/gastroparesis/opioid-induced constipation/nausea and vomiting- Patient most recently admitted from 11/30-12/13/2023 for the same symptoms She was given a total of 20 oxycodone 5 mg pills upon discharge, which she has run out of at this point N.p.o. Zofran 4 mg IV every 6 hours as needed Benadryl 25 mg IV prior to each Dilaudid IV dosing If she has not had a trial of Relistor, this should be considered Consult to pain management Opioid dependence- Patient continually requests IV Dilaudid Consult to pain management for other alternatives Anxiety- Alprazolam 1 mg p.o. 3 times daily as needed Diabetes mellitus- Has had decreased oral intake during last admission since discharge Glucose 306 upon admission Holding glargine, place on SSI PAD- Continue aspirin and Plavix Vascular consult last admission feels that her pain is not associated with ischemia (1) Chronic pain Chronic pain type: other chronic pain Qualified Code(s): G89.29 - Other chronic pain (2) Leukocytosis Leukocytosis type: unspecified Qualified Code(s): D72.829 - Elevated white blood cell count, unspecified (4) Opioid dependence Substance use status: with unspecified opioid-induced disorder Qualified Code(s): F11.29 - Opioid dependence with unspecified opioid-induced disorder (5) Type 2 diabetes mellitus Diabetes mellitus complication status: with other specified complication 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
[2023-12-16] MEDS: HYDROmorphone INJ 0.5 MG/0.5 ML SYR IV PRN (22:08)
[2023-12-16] MEDS: diphenhydrAMINE 50 MG/ML VIAL IV PRN (22:08)
[2023-12-16] MEDS ORDERED: GLUCOSE 10 TAB/TUBE PO PRN (23:13)
[2023-12-16] MEDS ORDERED: CARBOHYDRATES FOR HYPOGLYCEMIA PO PRN (23:13)
[2023-12-16] MEDS ORDERED: DEXTROSE 50% 50 ML SYRINGE IV PRN (23:13)
[2023-12-16] MEDS ORDERED: ZOLPIDEM TARTRATE 10 MG TAB PO PRN (23:13)
[2023-12-16] MEDS ORDERED: GLUCAGON FOR INJ 1 MG VIAL SQ PRN (23:13)
[2023-12-16] MEDS ORDERED: PHARMACY GLYCEMIC MGMT CONSULT PRN (23:13)
[2023-12-16] MEDS ORDERED: ALBUTEROL HFA 8 GM INHALER INH PRN (23:13)
[2023-12-16] MEDS ORDERED: GLUCOSE 40% GEL 15 GM TUBE PO PRN (23:13)
[2023-12-16] MEDS: INSULIN ASPART PER UNIT CHARGE SC SCH (23:52)
[2023-12-16] MEDS: LANTUS PER UNIT CHARGE SQ SCH (23:53)
[2023-12-17] MEDS: HYDROmorphone INJ 0.5 MG/0.5 ML SYR IV STA (00:38)
[2023-12-17] MEDS: HYDROmorphone INJ 1 MG/ML SYRINGE IV STA (02:57)
[2023-12-17] MEDS: ONDANSETRON INJ 2 MG/ML 2 ML VIAL IV PRN (04:29)
[2023-12-17] MEDS: LORazepam 1 MG in SYRINGE 0.5 ML IV STA (05:18)
--- NOTE | 2023-12-17 05:36 | Communication Note ---
Date of Service: December 17, 2023 Patient continues to complain of pain throughout the night despite Dilaudid administration. Will give 1mg Ativan and 10mg dexamethasone due to the origin of her pain may be due to her L-S nerve compression. Per chart review, she has been seen by ortho and ortho spine. No ortho surgery. Seen by vascular and no vascular procedures warranted. Pain management offered myofascial pain injections, which was never decided on by the patient. May consider ketamine in the future if pain not controlled with Dilaudid, Ativan, and dexamethasone.
[2023-12-17] MEDS: dexAMETHasone 10 MG in SYRINGE 0 ML IV ONE (05:55)
[2023-12-17] MEDS: ASPIRIN 81 MG ECTAB PO SCH (07:18)
[2023-12-17] MEDS: DULoxetine HCL 60 MG CAP PO SCH (07:19)
[2023-12-17] MEDS: DOCUSATE SODIUM 100 MG CAP PO SCH (07:19)
[2023-12-17] MEDS: hydrALAZINE HCL 25 MG TAB PO SCH (07:19)
[2023-12-17] MEDS: CLOPIDOGREL BISULFATE 75 MG TAB PO SCH (07:19)
[2023-12-17] MEDS: METOPROLOL SUCC 50MG EXT REL TAB PO SCH (07:20)
[2023-12-17] MEDS: lisinopril 20 MG TAB PO SCH (07:20)
[2023-12-17] MEDS: NIFEdipine EXTENDED REL 30 MG TABCR PO SCH (07:20)
[2023-12-17] MEDS: PANTOprazole 40 MG TAB PO SCH (07:20)
[2023-12-17] MEDS: tiZANidine HCL 4 MG TABLET PO SCH (07:21)
[2023-12-17] MEDS: PRAZOSIN HCL 1 MG CAP PO SCH (07:21)
[2023-12-17 07:26] LABS: Hematocrit (blood only) 34.2 % (37.0-47.0); Mean Corpuscular Hemoglobin 26.7 pg (25.0-34.0); Mean Corpuscular Hgb Conc 32.2 g/dL (32.0-36.0); Mean Platelet Volume 9.9 fL (9.4-12.4); Platelet Count 321 K/uL (130-400); RDW Coefficient of Variation 14.9 % (11.5-14.5); Red Blood Count 4.12 M/uL (4.20-5.40); White Blood Count 12.47 K/ul (4.8-10.8)
[2023-12-17 07:45] LABS: Albumin Globulin Ratio 1.7 (0.9-2); Albumin Level 4.1 gm/dl (3.4-5.0); BUN Creatinine Ratio 30.6 (10-20); Bilirubin,Total 0.2 mg/dl (0.2-1.0); Calcium 8.8 mg/dl (8.6-10.3); Creatinine Clr Calc Pharmacy 144.7 ml/min; Est GFR (African American) 136.8 ml/min; Globulin 2.4 gm/dl (2.5-4.0); Magnesium 1.7 mg/dl (1.7-2.4); Potassium 4.5 mmol/L (3.5-5.1); Total Protein 6.5 gm/dl (6.0-8.3)
--- NOTE | 2023-12-17 09:41 | Pain Management Consultation ---
Date of Consultation December 17, 2023 Assessment & Plan (1) Opioid dependence: Substance use status: with unspecified opioid-induced disorder Qualified Code(s): F11.29 - Opioid dependence with unspecified opioid-induced disorder (2) Gastroparesis: (3) Chronic pain: Chronic pain type: other chronic pain Qualified Code(s): G89.29 - Other chronic pain (4) Diffuse abdominal pain: (5) Left flank pain: Plan Patient was refusing to entertain conversation about her condition unless it revolved around specifically what she was requesting, which was a higher dose of Dilaudid, and when she wanted it. Tried to discuss that with this being a shorter acting medication, even though it is a strong medication, that she would likely have issues with not being on a more baseline opiate, especially when she is taking Percocet regularly at home. Patient stated that, "I should have just stayed home and take as much Percocet as I could until the pain went away". She mentioned multiple times that she does not understand why a doctor cannot come see her, alluding to the fact that she was dissatisfied with being seen by midlevel provider. She says that Dr. Clemons and Dr. Whaley are "the only doctors who take me seriously and will give me what I want". She says, "unless I can see one of them, then we are done here". When it was briefly addressed again to potentially perform some trigger point injections for her she again became defensive, saying, "oh, a needle she is going to solve everything". Visit was very difficult due to the patient's behavior, which is how she has also acted on multiple occasions in the past towards our pain management service. Tried to again discuss that she will not be able to have IV pain medicine when she returns home, so she should attempt to transition back to oral in preparation for discharge. Upon hearing this, she continued to be rude and dismissive, saying that "I know what works and no one wants to listen." She mentioned that she has not been able to keep oral medications down, but when checking with the charge nurse, there are no episodes of emesis for this patient. At this point, we have nothing to offer interventionally for the patient, as she has no specific complaints of pain. Due to the patient's behavior, we are unable to make any medication recommendations. Highly recommend psychiatry consult. Pain management service will sign off at this time. History of Present Illness Attending Physician: Sajan Allan MD History of Present Illness 58-year-old female well-known to the [facility] with a significant history of diabetes mellitus and peripheral artery disease that has resulted in amputation of the left great toe as well as a right BKA. She was just discharged from [facility] about 3 to 4 days ago, as she was feeling much better at that time, but she has again developed worsening abdominal pain and says that she is unable to "keep down" her prescribed Percocet 7.5/325 mg q4h. Again, she had does have a significant history of gastroparesis and chronic opioid use. She also has a history of some mild constipation. When she was previously here just recently she was noted left flank pain, which was described as a sharp stabbing pain. Patient does have a significant history of L5-S1 fusion by Dr. Ortiz ([facility]) in 2004. Evaluated by Dr. Morrow on 12/04/23 and surgical intervention was not recommended. At home she is chronically taking Percocet 7.5/325 mg every 4 hours. Patient is upset today because she was getting 1 mg of Dilaudid every 3 hours during the last admission, and she is now only getting 0.25 to 0.5 mg every 3 hours. Patient is stating that this is not controlling her pain. Patient essentially did not want to have any conversation unless it revolved around what she wanted to hear, which was receiving a dose and frequency of Dilaudid administrations that were consistent with what she requested. Case discussed with Dr. Deena Sandoval. Allergies Allergy/AdvReac Type Severity Reaction Status Date / Time morphine Allergy Severe blisters Verified 12/16/23 18:57 in mouth Sulfa (Sulfonamide Allergy Severe rash/swelli Verified 12/16/23 18:57 Antibiotics) ng amoxicillin [From Augmentin] Allergy Intermediate itching/power Verified 12/16/23 18:57 h ceftriaxone [From Rocephin] Allergy Intermediate Hives Verified 12/16/23 18:57 clavulanic acid Allergy Intermediate itching/power Verified 12/16/23 18:57 [From Augmentin] h erythromycin base Allergy Intermediate Hives Verified 12/16/23 18:57 vancomycin Allergy Intermediate YULIYA Verified 12/16/23 18:57 SYNDROME---CAN TAKE IF VERY SLOW DRIP. adhesive AdvReac Intermediate DERMABOND Verified 12/16/23 18:57 excoriates skin gabapentin AdvReac Intermediate Nausea Verified 12/16/23 18:57 iron [From Venofer] AdvReac Intermediate Hypertensio Verified 12/16/23 18:57 n Home Medications Medication Instructions Recorded Confirmed Type ropinirole 2 mg tablet 4 mg PO HS 10/19/20 12/16/23 History insulin lispro 100 unit/mL 5 unit subcut TIDM 03/08/22 12/16/23 History subcutaneous pen zolpidem 10 mg tablet 10 mg PO HS PRN Sleep 03/08/22 12/16/23 History insulin glargine 100 unit/mL (3 10 unit subcut HS 10/17/22 12/16/23 History mL) subcutaneous pen (Lantus Solostar U-100 Insulin) albuterol sulfate 90 mcg/actuation 2 puff inhalation QID PRN 05/08/23 12/16/23 History aerosol inhaler Shortness Of Breath Or Wheezing alprazolam 1 mg tablet 1 mg PO TID PRN Anxiety 05/08/23 12/16/23 History docusate sodium 100 mg capsule 100 mg PO BID 05/08/23 12/16/23 History metoprolol succinate 50 mg 50 mg PO QAM 05/08/23 12/16/23 History tablet,extended release 24 hr (Toprol XL) pantoprazole 40 mg tablet,delayed 40 mg PO BID 05/08/23 12/16/23 History release prazosin 1 mg capsule 1 mg PO TID 05/08/23 12/16/23 History clopidogrel 75 mg tablet (Plavix) 75 mg PO DAILY #30 tabs 05/10/23 12/16/23 Rx prochlorperazine maleate 5 mg 5 mg PO TID PRN Nausea 06/13/23 12/16/23 History tablet lisinopril 20 mg tablet 20 mg PO DAILY #30 tabs 08/09/23 12/16/23 Rx aspirin 81 mg tablet,delayed 81 mg PO DAILY 09/19/23 12/16/23 History release hydralazine 25 mg tablet 25 mg PO TID 09/19/23 12/16/23 History nifedipine 60 mg tablet,extended 120 mg PO DAILY 09/19/23 12/16/23 History release 24 hr acetaminophen 325 mg tablet 650 mg (2 x 325 mg) PO QID #120 12/13/23 12/16/23 Rx (Athenol) tabs duloxetine 60 mg capsule,delayed 60 mg PO DAILY #30 caps 12/13/23 12/16/23 Rx release lidocaine 5 % topical patch 1 patch transdermal QAM #14 ea 12/13/23 12/16/23 Rx oxycodone 5 mg tablet 15 mg (3 x 5 mg) PO Q6HWA PRN pain 12/13/23 12/16/23 Rx #20 tabs tizanidine 4 mg tablet 4 mg PO BID #60 tabs 12/13/23 12/16/23 Rx Patient History Medical History PAD (peripheral artery disease) Hypertension Groin pain Foot pain Costochondritis Infection of left great toe due to methicillin resistant Staphylococcus aureus (MRSA) Diastolic CHF COVID-19 Osteomyelitis of great toe of left foot Chronic pain syndrome Opiate dependence Opiate abuse, continuous Acidosis, lactic Acute dehydration Gastroenteritis Sepsis Shortness of breath Opioid dependence Iron deficiency anemia Hypomagnesemia Diabetic peripheral neuropathy Insomnia 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 No issues per anesthesia postop progress note. HTN (hypertension) Anemia Hyponatremia Cellulitis Peripheral neuropathy Benzodiazepine withdrawal Right second toe ulcer Diabetes mellitus type 2, uncontrolled Hyperlipidemia Seizures Gastritis Depression Chronic back pain Nonobstructive atherosclerosis of coronary artery Numbness of lower extremity Hypertriglyceridemia CAD (coronary artery disease) History of tobacco use Benzodiazepine dependence Restless leg syndrome Diabetic neuropathy Abdominal pain Gastroparesis Esophagitis determined by endoscopy GIB (gastrointestinal bleeding) Insulin dependent diabetes mellitus DM2 (diabetes mellitus, type 2) IDDM, A1c 07/2021-11% Surgical History History of amputation of great toe History of right below knee amputation (12/22/21) Right Below Knee Amputation(Right) - Davon Good MD, FACS History of lumbar surgery History of esophagogastroduodenoscopy (EGD) Family History Mother , age 63 Myocardial infarction Father , age 68 or 69 Myocardial infarction Brother S/P CABG (coronary artery bypass graft) Sister Myocardial infarction x 3; she is 57yo Social History Smoking Status: Former smoker Tobacco Type: Cigarettes packs per day: 0.5; Cigarettes Per Day: 20; Second Hand Exposure: No; Do You Dip or Chew Tobacco: No; Hx Alcohol Use: No Hx Substance Use: Yes Prescribed Medications: Marijuana Last Used Substance: Days (ago) Last Used Substance Other:: Medical marijuana Substance Use Type Other:: Medical marijuana Preferred Language: Tongan Communication Ability: Effective Visual Impairment: No Limitations Hearing Ability: Normal Appliance Painter And Refinisher Required: No Beliefs That Will Affect Care: None marital status: Current Living Situation: Spouse current occupational status: unemployed 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 Other Information That Helps Us Care for You: No other: raising a grandchild as well; lives in [place] Feels Safe at Home: Yes Safety Concerns: Feels Safe At This Time Diet: diabetic and low salt during the past year weight has: remained stable Assistive Devices: Walker and Wheelchair Physical Exam Physical Exam: GENERAL: AA&Ox3, NAD. Sitting on bed, appears comfortable. HEAD/FACE: Normocephalic and atraumatic. EYES: No drainage or conjunctival injection. ENT: Nose without bleeding or discharge. NECK: Trachea midline. No swelling or masses noted. RESPIRATORY: Patient with unlabored breathing. No signs of respiratory distress. CHEST/AXILLA: Chest movement symmetrical. No deformities noted. CARDIOVASCULAR: No edema noted. SKIN: [place], warm and dry. No rash noted. MS/EXTREMITY: No swelling, no deformities. Moving extremities appropriately. Right BKA. NEURO: Alert and appears oriented. Speech is fluent. Cranial Nerves are grossly intact. PSYCH: Alert, irritable,, affect is argumentative.
[2023-12-17] MEDS ORDERED: oxyCODONE HCL IR 5 MG TAB (IMMEDIATE RELEASE) PO PRN (10:48)
--- NOTE | 2023-12-17 10:56 | Hospitalist Progress Note ---
Date of Service December 17, 2023 Assessment & Plan (1) Chronic pain: Plan: -Recurrent episodes likely related to gastroparesis and constipation -No acute pathology on CT, other than possible constipation. - patient reports 3 BM since admissions - [place] PO oxycodone q4H and scheduled tylenol - IV dilaudid for breakthrough pain -pain management consulted - patient refused any interventions with them - recommended psych consult (2) Leukocytosis: Plan: -Suspected stress reaction related to vomiting, -Improving (3) Gastroparesis: Plan: -Most likely causing her nausea and vomiting. -Zofran and Compazine as needed (4) Opioid dependence: Plan: -Caution with overuse of opioids as patient is a chronic user. - prn narcan (5) Type 2 diabetes mellitus: Plan: -Patient's home regimen held on admission - Hgb A1c 7.1 11/2023 -Continue BSG checks, sliding-scale insulin, hypoglycemic protocol -pharmacy consult placed. (6) HTN (hypertension): Plan: -Continue her nifedipine, lisinopril and metoprolol -Hydralazine 25mg TID. (7) Depression: Plan: -Continue duloxetine 60mg PO daily -Xanax as needed. (8) PAD (peripheral artery disease): Plan: -Continue on aspirin and Plavix. -On CT :stenosis of the right superficial femoral artery 80%, stenosis of the right external iliac artery 75%, osteoarthrosis of the right common iliac artery 50%. No significant change from previously. Diet changed from heart healthy to regular (with carb count) at patients request as she was unable to get a salad with the heart healthy diet, RN confirms this. Plan Dispo: continue inpatient stay Notified by RN that this patient did not want to see me as a provider. Dr. Allan to see this afternoon, please refer to his attestation for any changes in management. To be assigned to a new provider in AM Admission and Anticipated Discharge Date Admission Date: December 16, 2023 Supervising Physician Co-Signing Physician Notes Patient seen and examined, chart reviewed, case discussed with Ayla Love and I agree with the assessment and plan as above except as otherwise noted Labs and images reviewed 58-year-old female with a history of BKA, chronic abdominal pain/gastroparesis/opioid induced constipation/opioid dependence who presents with increased abdominal pain with some radiation to her legs. At time bedside visit patient is moving around in bed but expresses that her pain is normally controlled with the 7.5 mg every 4 hours of oxycodone/Tylenol at home and feels worse in the last 2 days and that the only thing that helps is Dilaudid. She reports that she is not interested in other modalities of treatment, although notes that the lidocaine patch seems to help intermittently. She is able to move around in bed without deficits or acute limitation. Will continue oral o xycodone, scheduled Tylenol 500 mg every 4 hours, and 0.5 mg breakthrough Dilaudid as needed. Patient did request increase in Dilaudid frequency/dosing however is agreeable to pursue multimodal pain control with continuing her orals and Tylenol and deferring this at time of bedside assessment. Abdomen is soft and without guarding/rigidity. No signs of acute neurovascular compromise of the lower extremities on exam, cap refill is brisk. Active range of motion motion hip flexion, knee flexion is intact. She is not tachycardic or hypertensive on assessment. agree with above Subjective Patient sitting up in bed, tearful throughout interview. stating she went home sunday and felt good, slept for awhile and then woke up sunday AM with terrible pain Mainly in lower abdomen but also down her left leg - sharp/stabbing feeling nothing makes it better Review of Systems Review of Systems: All systems reviewed & are unremarkable except as noted in Subjective Physical Exam Physical Exam: General: sitting in bed, crying VS as above Resp: normal respiratory effort, lungs clear to auscultation CV: RRR, no murmur, Abd: normal bowel sounds, generalized tenderness throughout Extremities: Moves all extremities, right BKA Neuro: A&O x3, Results & Data Results & Data Vital Signs (Past 12 Hours) Vital Signs Temp Pulse Resp BP Pulse Ox O2 Del Method 12/17/23 07:55 36.5 C 85 16 169/81 H 96 Room Air 12/17/23 01:01 Room Air 12/17/23 01:01 36.7 C 93 H 18 190/73 H 96 Room Air 12/16/23 22:56 Room Air Laboratory Results CBC, chemistry and mag reviewed PG Care Time/CCT Total # of Minutes Spent Total Time Spent with Patient: Total time spent is greater than 50% in coordination of care (as documented) at patient's floor/unit and/or counseling patient: Coding Level of Care Code 90046 SUB INP/OBS CARE MIN Diagnoses Chronic pain G89.29 Chronic pain type: other chronic pain Leukocytosis D72.829 Leukocytosis type: unspecified Gastroparesis K31.84 Opioid dependence F11.29 Substance use status: with unspecified opioid-induced disorder Type 2 diabetes mellitus E11.69; Z79.4 Diabetes mellitus complication status: with other specified complication Diabetes mellitus fdc insulin use: with terminal system operator use HTN (hypertension) I10 Depression F32.9 PAD (peripheral artery disease) I73.9 (1) Chronic pain Chronic pain type: other chronic pain Qualified Code(s): G89.29 - Other chronic pain (2) Leukocytosis Leukocytosis type: unspecified Qualified Code(s): D72.829 - Elevated white blood cell count, unspecified (4) Opioid dependence Substance use status: with unspecified opioid-induced disorder Qualified Code(s): F11.29 - Opioid dependence with unspecified opioid-induced disorder (5) Type 2 diabetes mellitus Diabetes mellitus complication status: with other specified complication Diabetes mellitus fdc insulin use: with fdc use Qualified Code(s): E11.69 - Type 2 diabetes mellitus with other specified complication; Z79.4 - alf (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
[2023-12-17] MEDS: ACETAMINOPHEN 325 MG TAB PO SCH (12:03)
[2023-12-17] MEDS: LIDOCAINE 5% 1 PATCH TD SCH (12:56)
[2023-12-17] MEDS ORDERED: NALOXONE HCL 0.4 MG/1 ML VIAL/CARP IV PRN (13:59)
--- NOTE | 2023-12-17 15:19 | Electrocardiogram Report ---
Test Reason : Blood Pressure : / mmHG Vent. Rate : 102 BPM Atrial Rate : 102 BPM P-R Int : 138 ms QRS Dur : 080 ms QT Int : 308 ms P-R-T Axes : 071 055 068 degrees QTc Int : 401 ms Sinus tachycardia Anteroseptal infarct (cited on or before 01-DEC-2023) Abnormal ECG When compared with ECG of 01-DEC-2023 11:32, No significant change was found Confirmed by Andre Hinojosa ([id number]) on 12/17/2023 3:19:01 PM Referred By: REFERRED SELF Confirmed By:Andre Hinojosa
[2023-12-17] MEDS: ACETAMINOPHEN 500 MG TAB PO SCH (17:13)
[2023-12-17] MEDS: oxyCODONE HCL IR 5 MG TAB (IMMEDIATE RELEASE) PO PRN (17:13)
[2023-12-17] MEDS: rOPINIRole HCL 2 MG TABLET PO SCH (21:08)
[2023-12-18] MEDS: PROCHLORPERAZINE 5 MG in SYRINGE 4 ML IV PRN (04:06)
[2023-12-18] MEDS ORDERED: oxyCODONE HCL IR 5 MG TAB (IMMEDIATE RELEASE) PO PRN (08:00)
[2023-12-18 08:21] LABS: Hemoglobin 10.7 g/dl (12.0-16.0); Mean Corpuscular Hemoglobin 26.5 pg (25.0-34.0); Mean Corpuscular Hgb Conc 32.4 g/dL (32.0-36.0); Mean Corpuscular Volume 81.7 fL (80.0-100.0); Mean Platelet Volume 9.9 fL (9.4-12.4); Platelet Count 321 K/uL (130-400); RDW Coefficient of Variation 14.9 % (11.5-14.5); RDW Standard Deviation 44.4 fL (36.4-46.3); Red Blood Count 4.04 M/uL (4.20-5.40); White Blood Count 14.98 K/ul (4.8-10.8)
[2023-12-18 08:49] LABS: Albumin Globulin Ratio 1.7 (0.9-2); BUN Creatinine Ratio 38.6 (10-20); Bilirubin,Total 0.2 mg/dl (0.2-1.0); Calcium 9.2 mg/dl (8.6-10.3); Creatinine Clr Calc Pharmacy 118.4 ml/min; Est GFR (African American) 128.1 ml/min; Est GFR (Non-African American) 110.5 ml/min; Globulin 2.4 gm/dl (2.5-4.0); Total Protein 6.4 gm/dl (6.0-8.3)
--- NOTE | 2023-12-18 12:55 | Pharmacy Report ---
Pharmacy Glycemic Short Note 2 - Date of Service December 18, 2023 - Glycemic Short BSG Results (Last 24 hours): 12/17/23 12/17/23 12/18/23 16:45 20:00 07:12 Glucose 139 H POC Glucose 289 H 211 H 12/18/23 12/18/23 07:49 11:57 Glucose POC Glucose 114 H 163 H OUTPATIENT ANTIDIABETIC REGIMEN: * Lantus 10 units SQ qHS * Lispro 5 units TID with meals plus sliding scale * HbA1c: 7.1% (12/02/23) ASSESSMENT: * Ms Witt is a 58yo diabetic F admitted for pain control. * Pt is known to pharmacy glycemic service from past admissions. * Pt received 10mg IV dexamethasone yesterday morning, which led to hy perglycemia throughout the afternoon/evening yesterday. BSGs appear to be resolved today. * Pharmacy will continue to follow and adjust regimen as indicated. PLAN FOR INPATIENT GLYCEMIC CONTROL: * Basal insulin * Lantus 10 units SQ qHS * Bolus insulin * NovoLog per scale ACHS or Q6hrs while NPO * Goal Range: Low 110 mg/dL - High 140 mg/dL * Correction Factor: 35 mg/dL/unit * Nutritional / Prandial insulin per carb ratio of 1 unit per 10 grams CHO consumed
[2023-12-18] MEDS ORDERED: HYDROmorphone HCL 4 MG TAB PO PRN (16:22)
--- NOTE | 2023-12-18 16:27 | Hospitalist Progress Note ---
Date of Service December 18, 2023 Assessment & Plan (1) Chronic pain: Plan: Returns with severe pain-pain originally described on previous admission as being in her left mid back and radiating down bilat groins and into bilateral thighs and left leg Now, pt stating severe pain down entire LLE to foot. With excellent palpable pulses in left foot. Previous workup over the last few weeks to months has been quite extensive to include CTA abd/pel (high grade PAD Right pelvis/RLE), CXR (negative), MRI lumbar and thoracic spine (HNP L4-5 with neuroforaminal stenosis), CT abd/pel x 2 (nothing acute, some mild sigmoid colon thickening and constipation, debris in stomach), Arterial Doppler LLE, left femur MRI (moderate left knee effusion) Seen by Vascular Medicine who does not think any intervention warranted to LLE that would help pain from vascular standpoint Pt does have significant PAD on RLE, but currently is not having pain there, no open wounds. Pt requesting Vascular Surgery consult--placed consult for Dr. Sue Seen by Ortho SPine last admission for lumbar HNP and no surgery offered. Second opinion Spine Surgeon also would not offer surgery Seen by Pain Management on two occasions and offered myofascial injections in back-declined to have this done as she does not believe it will help Has trialed tizanidine, increased dose of Cymbalta,and large amounts of IV dilaudid over the last several weeks. She refuses to use po oxycodone, claiming it makes her have N/V In the past, was on Lyrica-offered repeat trial but she is fearful of trying due to allergy to gabapentin (allergy is nausea) She was requesting IV benadryl along with IV dilaudid on a regular basis-this can be changed to po as she has no evidence of allergic reaction or rash and unclear why this is necessary. 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 Recommend non-opioid analgesics like Lyrica if willing, increased dose of Cymbalta, muscle relaxers. Recommend slow de-escalation of opioids. Decrease frequency of IV dilaudid to 0.5mg IV q4h (from q3h) Add on po dilaudid 2mg po q4h which should be given FIRST before giving IV dilaudid Continue tizanidine Continue increased dose of Cymbalta Discontinue oxycodone which she was on at home for at least the last year but claims makes her vomit Add back on Ambien for sleep but at lower dose of 5mg hs as sleep is important for pain cycle as well Consider Psych consult but traditionally, [place] has been resistant to any psychiatric assistance in the past Would be open to any other Pain Management suggestions but they have signed off at this time (2) Leukocytosis: Plan: Suspected stress reaction related to vomiting,and received steroids IV on 12/16 She almost always has a WBC count of 11-12k through the years Blood cxs negative, no signs of infection throughout entire body on all imaging and on exam. No fevers No need to follow CBC daily (3) Gastroparesis: Plan: Recurrent episodes of N/V related to gastroparesis and opioid-induced constipation No acute pathology on CT, other than possible constipation and debris in stomach on recent CTA abd/pel from gastroparesis Consider GI consultation for EGD Patient reports regular BMs since admission Did use Relistor last admission Continue Zofran and Compazine as needed (4) Opioid dependence: Plan: as above prn narcan is available (5) Type 2 diabetes mellitus: Plan: Patient's home regimen held on admission Hgb A1c 7.1 11/2023 Continue BSG checks, sliding-scale insulin, hypoglycemic protocol pharmacy consult placed (6) HTN (hypertension): Plan: BPs controlled Continue her nifedipine, lisinopril and metoprolol, prazosin and Hydralazine 25mg TID (7) Depression: Plan: Continue duloxetine 60mg PO daily Xanax is ordered as needed but she says po benzos do not work for her-must be IV (8) PAD (peripheral artery disease): Plan: Continue on aspirin and Plavix. On CT :stenosis of the right superficial femoral artery 80%, stenosis of the right external iliac artery 75%, osteoarthrosis of the right common iliac artery 50%. No significant change from previously. Vascular Med consult appreciated Consult Vascular Surgery for PAD opinion Plan DVT prophylaxis-add on Lovenox Dispo: continued inpatient stay for ongoing pain control Pt requests to see Dr. Clemons starting 12/19/23. WIll discuss her care directly with him Admission and Anticipated Discharge Date Admission Date: December 16, 2023 Subjective Pt tearful throughout, says she has the worst pain ever and doesn't feel like any doctors are listening to her. She reports being told that her PAD was causing her severe pain in her LLE but when I told her that the stenoses were in the RLE, she said "whichever leg it is!" When I asked her about the pain she had previously in her left mid back when I took care of her 2 weeks ago, she shouted "what does it matter!?" Today she states that the pain is severe going down her entire LLE to the foot and wishes "someone would just cut my leg off!" She says that she cannot take "pure oxycodone" as it makes her vomit. I reminded her she takes oxycodone/APAP at home and she stated that Percocet is different because it's not "pure oxycodone." She requests that she only be given IV dilaudid until it is time to go home and continues to refuse po pain medicine. I discussed her care with Pain Management PA who said that the attending for Pain Management is recommending that pt be weaned off IV pain medicine and since pt declining injections, no further recommendations to be made. RN reports pt is eating her meals and no issues with vomiting she is aware of. Pt reports she is moving her bowels regularly. When I asked why she was no longer on Lyrica, she said she could not recall. I reviewed a previous hospitalization record when she was on this. She did agree to a trial of this again. Later, she did research on her own and refused to take Lyrica because of her allergy to gabapentin which is listed as "nausea." We also discussed trying po dilaudid alternating with IV dilaudid to try to wean off dilaudid and she initially agreed to try this but then later told the nurse she didn't trust Dr. Ko and wanted to switch back to only IV dilaudid. Overnight, she was given IV dilaudid 1mg along with IV decadron and is also requesting her Ambien order be changed so that it can be given within 3 hours of opioids as she has thus far not been able to take it. Reports "I haven't slept at all since I've been in the hospital." She reports IV Ativan really helped her sleep, but po ativan does not work fo rher at all and she cannot take it. Finally, pt requests that Dr. Clemons see her tomorrow rather than myself. Physical Exam Constitutional: WD/WN, vitals as above Respiratory: normal respiratory effort, lungs clear to auscultation Cardiovascular: RRR, no murmur, no edema Vessels: dorsalis pedis pulses present (on left) with good cap refill and no wounds at all on left foot. multiple missing toes on left foot RLE with BKA Gastrointestinal (Abdomen): normal bowel sounds, soft, nontender, no hepatosplenomegaly Psychiatric: Orientation: alert, oriented x 3 and cooperative Affect: + tearful affect and + labile affect Mood: + depressed mood, + anxious mood and + irritable mood Results & Data Results & Data Vital Signs (Past 12 Hours) Vital Signs Temp Pulse Resp BP Pulse Ox O2 Del Method 12/18/23 15:08 36.8 C 72 16 136/66 98 Room Air 12/18/23 08:00 Room Air 12/18/23 07:20 36.7 C 85 16 143/68 H 97 Room Air Laboratory Results CBC, BMP reviewed PG Care Time/CCT Total # of Minutes Spent Total Time Spent with Patient: Total time spent is greater than 50% in coordination of care (as documented) at patient's floor/unit and/or counseling patient: Coding Level of Care Code 82075 SUB INP/OBS CARE 3/50MIN Diagnoses Chronic pain G89.29 Chronic pain type: other chronic pain Leukocytosis D72.829 Leukocytosis type: unspecified Gastroparesis K31.84 Opioid dependence F11.29 Substance use status: with unspecified opioid-induced disorder Type 2 diabetes mellitus E11.69; Z79.4 Diabetes mellitus complication status: with other specified complication Diabetes mellitus termite exterminator helper insulin use: with penitentiary use HTN (hypertension) I10 Depression F32.9 PAD (peripheral artery disease) I73.9 (1) Chronic pain Chronic pain type: other chronic pain Qualified Code(s): G89.29 - Other chronic pain (2) Leukocytosis Leukocytosis type: unspecified Qualified Code(s): D72.829 - Elevated white blood cell count, unspecified (4) Opioid dependence Substance use status: with unspecified opioid-induced disorder Qualified Code(s): F11.29 - Opioid dependence with unspecified opioid-induced disorder (5) Type 2 diabetes mellitus Diabetes mellitus complication status: with other specified complication Diabetes mellitus termite exterminator helper insulin use: with penitentiary use Qualified Code(s): E11.69 - Type 2 diabetes mellitus with other specified complication; Z79.4 - termite renewal inspector (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
[2023-12-18] MEDS: HYDROmorphone INJ 0.5 MG/0.5 ML SYR IV PRN (16:31)
[2023-12-18] MEDS: ZOLPIDEM TARTRATE 5 MG TAB PO PRN (20:40)
[2023-12-18] MEDS ORDERED: PREGABALIN 25 MG CAP PO SCH (21:00)
[2023-12-18] MEDS: HYDROmorphone HCL 2 MG TAB PO PRN (23:49)
[2023-12-19] MEDS: ENOXAPARIN INJ 40 MG/0.4 ML SYR SQ SCH (08:26)
[2023-12-19] MEDS: METHYLNALTREXONE BROMIDE 12 MG/0.6 ML VIAL SQ SCH (10:44)
[2023-12-19] MEDS: ALPRAZolam 0.5 MG TABLET PO PRN (10:50)
--- NOTE | 2023-12-19 14:22 | Consultation ---
Date of Consultation December 19, 2023 Assessment & Plan (1) PAD (peripheral artery disease): Pt with mild/moderate PAD of LLE, but well perfused L foot and +2 DP pulse. No sign of acute ischemia. Her severe constant pain without relieving or exacerbating factors present for months is inconsistent with arterial in sufficiency. Her physical exam does not demonstrate any concerning findings for critical limb ischemia. Discussed with Dr Fuentes, does not recommend vascular surgical intervention at this time. Explained to pt that vascular procedure would not relieve her pain. She expresses understanding, but is frustrated with lack of answers and pain relief. History of Present Illness Reason for Consultation: PAD Attending Physician: Ashok Clemons MD History of Present Illness 58 yo f with multiple medical problems, including DMII, HTN, gastroparesis, chronic lumbar back pain, CAD, neuropathy, emphysema, anemia, anxiety /depression, opioid dependence, chronic pain syndrome, hx of RLE BKA, hx of LLE 1-2 toe amputations, admitted d/t severe LLE pain, seen in consultation today for PAD. Pt has been known to have PAD for a number of years. She recently had a LLE angio done at [place], but those records are not available. Pt states she has been dealing with severe LLE pain for many months. Describes as sharp,shooting, throbbing/aching pain mostly located in her L groin and L barbosa to foot. States she has had times where her L foot is cold and blue in color, but does not stay that way. States she developed multiple small contusion lumps in L barbosa last week, but denies any trauma. Admits some chronic L knee pain and even some edema of the knee, but this also resolved. States the pain is constantly aching, but does get shooting pains from barbosa to dorsal foot. Denies current ulcerations, improvement in pain when hanging foot off side of the bed. No change in pain with weight bearing, ambulates very little d/t chronic pain and RLE BKA. Admits chronic abd pain. Denies fever, chest pain, N/V,other new complaints. CT and arterial US imaging demonstrates moderate PAD of LLE, possibly mild stenosis of REGULATORY INTERN. Allergies Allergy/AdvReac Type Severity Reaction Status Date / Time morphine Allergy Severe blisters Verified 12/16/23 18:57 in mouth Sulfa (Sulfonamide Allergy Severe rash/swelli Verified 12/16/23 18:57 Antibiotics) ng amoxicillin [From Augmentin] Allergy Intermediate itching/power Verified 12/16/23 18:57 h ceftriaxone [From Rocephin] Allergy Intermediate Hives Verified 12/16/23 18:57 clavulanic acid Allergy Intermediate itching/power Verified 12/16/23 18:57 [From Augmentin] h erythromycin base Allergy Intermediate Hives Verified 12/16/23 18:57 vancomycin Allergy Intermediate YULIYA Verified 12/16/23 18:57 SYNDROME---CAN TAKE IF VERY SLOW DRIP. adhesive AdvReac Intermediate DERMABOND Verified 12/16/23 18:57 excoriates skin gabapentin AdvReac Intermediate Nausea Verified 12/16/23 18:57 iron [From Venofer] AdvReac Intermediate Hypertensio Verified 12/16/23 18:57 n Home Medications Medication Instructions Recorded Confirmed Type ropinirole 2 mg tablet 4 mg PO HS 10/19/20 12/16/23 History insulin lispro 100 unit/mL 5 unit subcut TIDM 03/08/22 12/16/23 History subcutaneous pen zolpidem 10 mg tablet 10 mg PO HS PRN Sleep 03/08/22 12/16/23 History insulin glargine 100 unit/mL (3 10 unit subcut HS 10/17/22 12/16/23 History mL) subcutaneous pen (Lantus Solostar U-100 Insulin) albuterol sulfate 90 mcg/actuation 2 puff inhalation QID PRN 05/08/23 12/16/23 History aerosol inhaler Shortness Of Breath Or Wheezing alprazolam 1 mg tablet 1 mg PO TID PRN Anxiety 05/08/23 12/16/23 History docusate sodium 100 mg capsule 100 mg PO BID 05/08/23 12/16/23 History metoprolol succinate 50 mg 50 mg PO QAM 05/08/23 12/16/23 History tablet,extended release 24 hr (Toprol XL) pantoprazole 40 mg tablet,delayed 40 mg PO BID 05/08/23 12/16/23 History release prazosin 1 mg capsule 1 mg PO TID 05/08/23 12/16/23 History clopidogrel 75 mg tablet (Plavix) 75 mg PO DAILY #30 tabs 05/10/23 12/16/23 Rx prochlorperazine maleate 5 mg 5 mg PO TID PRN Nausea 06/13/23 12/16/23 History tablet lisinopril 20 mg tablet 20 mg PO DAILY #30 tabs 08/09/23 12/16/23 Rx aspirin 81 mg tablet,delayed 81 mg PO DAILY 09/19/23 12/16/23 History release hydralazine 25 mg tablet 25 mg PO TID 09/19/23 12/16/23 History nifedipine 60 mg tablet,extended 120 mg PO DAILY 09/19/23 12/16/23 History release 24 hr acetaminophen 325 mg tablet 650 mg (2 x 325 mg) PO QID #120 12/13/23 12/16/23 Rx (Athenol) tabs duloxetine 60 mg capsule,delayed 60 mg PO DAILY #30 caps 12/13/23 12/16/23 Rx release lidocaine 5 % topical patch 1 patch transdermal QAM #14 ea 12/13/23 12/16/23 Rx oxycodone 5 mg tablet 15 mg (3 x 5 mg) PO Q6HWA PRN pain 12/13/23 12/16/23 Rx #20 tabs tizanidine 4 mg tablet 4 mg PO BID #60 tabs 12/13/23 12/16/23 Rx Patient History Medical History PAD (peripheral artery disease) Hypertension Groin pain Foot pain Costochondritis Infection of left great toe due to methicillin resistant Staphylococcus aureus (MRSA) Diastolic CHF COVID-19 Osteomyelitis of great toe of left foot Chronic pain syndrome Opiate dependence Opiate abuse, continuous Acidosis, lactic Acute dehydration Gastroenteritis Sepsis Shortness of breath Opioid dependence Iron deficiency anemia Hypomagnesemia Diabetic peripheral neuropathy Insomnia 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 No issues per anesthesia postop progress note. HTN (hypertension) Anemia Hyponatremia Cellulitis Peripheral neuropathy Benzodiazepine withdrawal Right second toe ulcer Diabetes mellitus type 2, uncontrolled Hyperlipidemia Seizures Gastritis Depression Chronic back pain Nonobstructive atherosclerosis of coronary artery Numbness of lower extremity Hypertriglyceridemia CAD (coronary artery disease) History of tobacco use Benzodiazepine dependence Restless leg syndrome Diabetic neuropathy Abdominal pain Gastroparesis Esophagitis determined by endoscopy GIB (gastrointestinal bleeding) Insulin dependent diabetes mellitus DM2 (diabetes mellitus, type 2) IDDM, A1c 07/2021-11% Surgical History History of amputation of great toe History of right below knee amputation (12/22/21) Right Below Knee Amputation(Right) - Davon Good MD, FACS History of lumbar surgery History of esophagogastroduodenoscopy (EGD) Family History Mother , age 63 Myocardial infarction Father , age 68 or 69 Myocardial infarction Brother S/P CABG (coronary artery bypass graft) Sister Myocardial infarction x 3; she is 57yo Social History Smoking Status: Former smoker Tobacco Type: Cigarettes packs per day: 0.5; Cigarettes Per Day: 20; Second Hand Exposure: No; Do You Dip or Chew Tobacco: No; Hx Alcohol Use: No Hx Substance Use: Yes Prescribed Medications: Marijuana Last Used Substance: Days (ago) Last Used Substance Other:: Medical marijuana Substance Use Type Other:: Medical marijuana Preferred Language: Uzbek Communication Ability: Effective Visual Impairment: No Limitations Hearing Ability: Normal General Education Professor Required: No Beliefs That Will Affect Care: None marital status: Current Living Situation: Spouse current occupational status: unemployed 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 Other Information That Helps Us Care for You: No other: raising a grandchild as well; lives in [place] Feels Safe at Home: Yes Safety Concerns: Feels Safe At This Time Diet: diabetic and low salt during the past year weight has: remained stable Assistive Devices: Walker and Wheelchair Review of Systems Review of Systems: All systems reviewed & are unremarkable except as noted in HPI & below Physical Exam Constitutional: WD/WN, vitals as above cooperative and + in distress (tearful) ENMT: Ears: no hearing impairment Neck: trachea midline Cardiovascular: Vessels: posterior tibial pulses present (RLE BKA, LLE +1) and dorsalis pedis pulses present (RLE BKA, LLE +2); + abnormal peripheral pulses Extremities: normal capillary refill (RLE BKA, LLE normal) Musculoskeletal: no cyanosis or clubbing, extremities motor strength 5/5 (RLE BKA) LLE surgical absence of toes 1-3 Skin: no rashes, warm and dry + ecchymosis (few tender slightly raised lumps with resolving ecchymosis L barbosa. ) Neurologic: moves all extremities and awake; no focal motor deficits and not confused Psychiatric: Orientation: alert and oriented x 3 Affect: + depressed affect, + anxious affect, + tearful affect, + labile affect and + irritable affect Results & Data Vital Signs (Past 12 Hours) Vital Signs Temp Pulse Resp BP Pulse Ox O2 Del Method 12/19/23 08:00 Room Air 12/19/23 07:31 36.4 C L 70 16 154/75 H 95 Room Air
[2023-12-19] MEDS: ACETAMINOPHEN 500 MG TAB PO SCH (14:42)
[2023-12-19] MEDS: dexAMETHasone 4 MG TAB PO ONE (15:19)
[2023-12-19] MEDS: SENNA 8.6 MG TAB PO ONE (15:19)
--- NOTE | 2023-12-19 16:48 | Hospitalist Progress Note ---
Date of Service December 19, 2023 Assessment & Plan (1) Chronic pain: Plan: Returns with severe pain-pain originally described on previous admission as being in her left mid back and radiating down bilat groins and into bilateral thighs and left leg Now, pt continues stating severe pain down entire LLE to foot. With excellent palpable pulses in left foot. Previous workup over the last few weeks to months has been quite extensive to include CTA abd/pel (high grade PAD Right pelvis/RLE), CXR (negative), MRI lumbar and thoracic spine (HNP L4-5 with neuroforaminal stenosis), CT abd/pel x 2 (nothing acute, some mild sigmoid colon thickening and constipation, debris in stomach), Arterial Doppler LLE, left femur MRI (moderate left knee effusion) Seen by Vascular Medicine botyh Dr Lin and Dr Fuentes,. who does not think any intervention warranted to LLE that would help pain from vascular standpoint Continue frequency of IV dilaudid to 0.5mg IV q4h (from q3h) Return to oxycodone 15 mg every 6 as needed Continue tizanidine Continue increased dose of Cymbalta Scheduling Tylenol 1000 3 times daily Adding Tegretol for adjunctive pain control Considering clonidine in the a.m. of 12/19 Dexamethasone 1 dose IV offered lidoerm patch, pt states back is not issue Attempt improved sleep with 1 dose trazodone at bedtime 12/18 (2) Leukocytosis: Plan: Suspected stress reaction related to vomiting,and received steroids IV on 12/16 She almost always has a WBC count of 11-12k through the years Blood cxs negative, no signs of infection throughout entire body on all imaging and on exam. No fevers Downward trend of inflammatory markers over the last 1 month No acute infection suspected at this point in time (3) Type 2 diabetes mellitus: Plan: Patient's home regimen held on admission Hgb A1c 7.1 11/2023 Continue BSG checks, sliding-scale insulin, hypoglycemic protocol pharmacy consult placed Gastroparesis Recurrent episodes of N/V related to gastroparesis and opioid-induced constipation No acute pathology on CT, other than possible constipation and debris in stomach on recent CTA abd/pel from gastroparesis Restart Relistor adding Senokot Continue Zofran and Compazine as needed (4) HTN (hypertension): Plan: BPs controlled Continue her, lisinopril reduced dose and metoprolol,and Hydralazine 25mg TID consider adding clonidine on 12/19 (5) Depression: Plan: Continue duloxetine 60mg PO daily Xanax is ordered as needed but she says po benzos do not work for her-must be IV sleep deprivation will give one dose trazadone hs (6) PAD (peripheral artery disease): Plan: Continue on aspirin and Plavix. On CT :stenosis of the right superficial femoral artery 80%, stenosis of the right external iliac artery 75%, osteoarthrosis of the right common iliac artery 50%. No significant change from previously. Vascular Med consult appreciated Consult Vascular Surgery for PAD opinion Plan DVT prophylaxis-add on Lovenox Admission and Anticipated Discharge Date Admission Date: December 16, 2023 Subjective Prolonged visit with this patient today started 2 occasions. At least over 50 minutes at the bedside +30 minutes chart review. Chart review includes personal discussion with vascular surgery and service excellence Ms. Witt complains of poor pain control. She request intravenous hydromorphone to be increased both in dosage and interval. She alleges that staff and caregivers are not listening to her and giving her what she needs. Upon interview the patient would not accept any alternatives to her request for intravenous hydromorphone. Many medications she has had intolerances to and/or states that they do not work. She claims that we are not listening to her knees and we are "missing something" During this bring regarding the patient's abdominal and leg pain she has had CT scans of the abdomen pelvis on September 19 October 15 November 27 and November 30. She has had MRIs of her thoracic spine and lumbar sacral spine on December 03 and a femur MRI on December 06. She had arterial duplex on December 09. She has a CT angiography on December 15. She has had consultants from both orthopedic spine surgeons on staff Dr. Morrow and Dr. Pollock She has had consultations from both vascular surgeons on staff Dr. Lin and Dr. Fuentes She has had consultations with pain management which she dismissed At the end of the visit she has agreed to try to continue her hydromorphone at 0.5 every 4 hour as needed intervals and adding scheduled Tylenol oxycodone 15 as needed every 6 hours she remains on tizanidine twice daily, or instituting Te gretol twice daily and on the ninth we will institute clonidine as it has have adjunctive pain control for regional pain syndrome. The MRI of her lumbar spine does show some foraminal encroachment on the L4-5 with a disc subsequently will use a dose of dexamethasone to see if this improves her although understanding it may worsen her diabetes. We did discuss possibility of outpatient EMG to further evaluate this regard but cannot perform that on inpatient setting Another issue is moderate stool load seen in the CAT scans patient says she has not been moving her bowels. We are starting naltrexone and Senokot Physical Exam Physical Exam: Patient is crying but her objective vital signs did not show any tachycardia- pretension or tachypnea. Pain is relegated to her left leg there are some bruises which could be the size of fingertips Patient has good palpable pulse in that leg as corroborated by vascular surgery consultation on 12/19/2023 Results & Data Results & Data Vital Signs (Past 12 Hours) Vital Signs Temp Pulse Resp BP Pulse Ox O2 Del Method 12/19/23 14:40 97.5 F L 71 16 115/65 99 Room Air 12/19/23 08:00 Room Air 12/19/23 07:31 97.5 F L 70 16 154/75 H 95 Room Air PG Care Time/CCT Total # of Minutes Spent Total Time Spent with Patient: Total time spent is greater than 50% in coordination of care (as documented) at patient's floor/unit and/or counseling patient: Coding Level of Care Code 58374 SUB INP/OBS CARE 3/50MIN Diagnoses Chronic pain G89.29 Chronic pain type: other chronic pain Leukocytosis D72.829 Leukocytosis type: unspecified Type 2 diabetes mellitus E11.69; Z79.4 Diabetes mellitus complication status: with other specified complication Diabetes mellitus skilled nursing insulin use: with skilled nursing use HTN (hypertension) I10 Depression F32.9 PAD (peripheral artery disease) I73.9 (1) Chronic pain Chronic pain type: other chronic pain Qualified Code(s): G89.29 - Other chronic pain (2) Leukocytosis Leukocytosis type: unspecified Qualified Code(s): D72.829 - Elevated white blood cell count, unspecified (3) Type 2 diabetes mellitus Diabetes mellitus complication status: with other specified complication Aranza betes mellitus intermediate card tender insulin use: with intermediate card tender use Qualified Code(s): E11.69 - Type 2 diabetes mellitus with other specified complication; Z79.4 - terminologist (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
[2023-12-19] MEDS: oxyCODONE HCL IR 5 MG TAB (IMMEDIATE RELEASE) PO PRN (17:12)
[2023-12-19] MEDS: carBAMazepine XR 100 MG TABCR PO SCH (20:40)
[2023-12-19] MEDS: traZODone HCL 50 MG TAB PO ONE (20:43)
[2023-12-20 07:36] LABS: Hematocrit (blood only) 32.5 % (37.0-47.0); Hemoglobin 10.7 g/dl (12.0-16.0); Mean Corpuscular Hemoglobin 26.8 pg (25.0-34.0); Mean Corpuscular Hgb Conc 32.9 g/dL (32.0-36.0); Mean Corpuscular Volume 81.3 fL (80.0-100.0); Mean Platelet Volume 9.9 fL (9.4-12.4); Platelet Count 321 K/uL (130-400); RDW Coefficient of Variation 14.6 % (11.5-14.5); RDW Standard Deviation 43.2 fL (36.4-46.3); White Blood Count 12.59 K/ul (4.8-10.8)
[2023-12-20 07:57] LABS: Albumin Globulin Ratio 1.7 (0.9-2); BUN Creatinine Ratio 46.3 (10-20); Bilirubin,Total 0.3 mg/dl (0.2-1.0); Est GFR (African American) 131.1 ml/min; Est GFR (Non-African American) 113.1 ml/min; Globulin 2.4 gm/dl (2.5-4.0); Total Protein 6.4 gm/dl (6.0-8.3)
[2023-12-20] MEDS ORDERED: DEXAMETHASONE SOD INJ 4 MG/ML VIAL IV ONE (08:00)
[2023-12-20] MEDS: dexAMETHasone 4 MG in SYRINGE 0 ML IV ONE (08:30)
[2023-12-20] MEDS: cloNIDine HCL 0.1 MG TAB PO SCH (08:32)
[2023-12-20] MEDS: lisinopril 5 MG TAB PO SCH (08:36)
[2023-12-20] MEDS: SENNA 8.6 MG TAB PO SCH (08:37)
[2023-12-20] MEDS: oxyCODONE HCL 20 MG TABCR (OxyCONTIN) PO SCH (10:09)
[2023-12-20] MEDS: oxyCODONE HCL IR 5 MG TAB (IMMEDIATE RELEASE) PO PRN (10:13)
--- NOTE | 2023-12-20 15:27 | Hospitalist Progress Note ---
Date of Service December 20, 2023 Assessment & Plan (1) Chronic pain: Plan: Returns with severe pain-pain originally described on previous admission as being in her left mid back and radiating down bilat groins and into bilateral thighs and left leg Now, pt continues stating severe pain down entire LLE to foot. With excellent palpable pulses in left foot. Previous workup over the last few weeks to months has been quite extensive to include CTA abd/pel (high grade PAD Right pelvis/RLE), CXR (negative), MRI lumbar and thoracic spine (HNP L4-5 with neuroforaminal stenosis), CT abd/pel x 2 (nothing acute, some mild sigmoid colon thickening and constipation, debris in stomach), Arterial Doppler LLE, left femur MRI (moderate left knee effusion) Seen by Vascular Medicine botyh Dr Lin and Dr Fuentes,. who does not think any intervention warranted to LLE that would help pain from vascular standpoint Try to institute oxycontin 20mg q 12h, did refuse in am will start in pm Continue frequency of IV Dilaudid to 0.5mg IV q4h (from q3h) Return to oxycodone 15 mg every 6 as needed Continue tizanidine Continue increased dose of Cymbalta Scheduling Tylenol 1000 3 times daily Adding Tegretol for adjunctive pain control 0.1 mg of clonidine in the a.m. of 12/19 Dexamethasone 2 doses IV offered lidoerm patch, pt states back is not issue Attempt improved sleep with 1 dose trazodone at bedtime additional dose 12/19 (2) Leukocytosis: Plan: Suspected stress reaction related to vomiting,and received steroids IV on 12/16 She almost always has a WBC count of 11-12k through the years Blood cxs negative last admission, no signs of infection throughout entire body on all imaging and on exam. No fevers Downward trend of inflammatory markers over the last 1 month No acute infection suspected at this point in time (3) Type 2 diabetes mellitus: Plan: Patient's home regimen held on admission Hgb A1c 7.1 11/2023 Continue BSG checks, sliding-scale insulin, hypoglycemic protocol pharmacy consult placed Gastroparesis Recurrent episodes of N/V related to gastroparesis and opioid-induced constipation No acute pathology on CT, other than possible constipation and debris in stomach on recent CTA abd/pel from gastroparesis Restart Relistor adding Senokot Continue Zofran and Compazine as needed (4) HTN (hypertension): Plan: BPs controlled Continue her, lisinopril reduced dose and continue metoprolol,and Hydralazine 25mg TID adding clonidine on 12/19 (5) Depression: Plan: Continue duloxetine 60mg PO daily Xanax is ordered as needed but she says po benzos do not work for her-must be IV sleep deprivation will give one dose trazadone hs, try again 12/19 (6) PAD (peripheral artery disease): Plan: Continue on aspirin and Plavix. On CT :stenosis of the right superficial femoral artery 80%, stenosis of the right external iliac artery 75%, osteoarthrosis of the right common iliac artery 50%. No significant change from previously. Vascular Med consult appreciated Consult Vascular Surgery for PAD opinion, no intervention needed Plan DVT prophylaxis-on Lovenox Admission and Anticipated Discharge Date Admission Date: December 16, 2023 Subjective pt was tearful this am, refused her oxycontin, did have lively discussion and now she is agreeable to taking it this pm to try to help her pain was in room and updated Physical Exam Physical Exam: awake and alert, c/o pain, tearful has some ecchymotic areas on leg Results & Data Results & Data Vital Signs (Past 12 Hours) Vital Signs Temp Pulse Resp BP BP Pulse Ox O2 Del Method 12/20/23 07:30 97.9 F 73 16 185/77 H 177/89 H 98 Room Air Laboratory Results review cbc review chemistry PG Care Time/CCT Total # of Minutes Spent Total Time Spent with Patient: Total time spent is greater than 50% in coordination of care (as documented) at patient's floor/unit and/or counseling patient: Coding Level of Care Code 78982 SUB INP/OBS CARE 3/50MIN Diagnoses Chronic pain G89.29 Chronic pain type: other chronic pain Leukocytosis D72.829 Leukocytosis type: unspecified Type 2 diabetes mellitus E11.69; Z79.4 Diabetes mellitus complication status: with other specified complication Diabetes mellitus fpc insulin use: with fpc use HTN (hypertension) I10 Depression F32.9 PAD (peripheral artery disease) I73.9 (1) Chronic pain Chronic pain type: other chronic pain Qualified Code(s): G89.29 - Other chronic pain (2) Leukocytosis Leukocytosis type: unspecified Qualified Code(s): D72.829 - Elevated white blood cell count, unspecified (3) Type 2 diabetes mellitus Diabetes mellitus complication status: with other specified complication Diabetes mellitus fpc insulin use: with local company intermodal truck driver use Qualified Code(s): E11.69 - Type 2 diabetes mellitus with other specified complication; Z79.4 - half-way (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
[2023-12-20] MEDS: traZODone HCL 50 MG TAB PO ONE (20:48)
--- NOTE | 2023-12-21 15:01 | Hospitalist Progress Note ---
Date of Service December 21, 2023 Assessment & Plan (1) Chronic pain: Plan: Returns with severe pain-pain originally described on previous admission as being in her left mid back and radiating down bilat groins and into bilateral thighs and left leg Now, pt continues stating severe pain down entire LLE to foot. With excellent palpable pulses in left foot. Previous workup over the last few weeks to months has been quite extensive to include CTA abd/pel (high grade PAD Right pelvis/RLE), CXR (negative), MRI lumbar and thoracic spine (HNP L4-5 with neuroforaminal stenosis), CT abd/pel x 2 (nothing acute, some mild sigmoid colon thickening and constipation, debris in stomach), Arterial Doppler LLE, left femur MRI (moderate left knee effusion) Seen by Vascular Medicine botyh Dr Lin and Dr Fuentes,. who does not think any intervention warranted to LLE that would help pain from vascular standpoint Try to institute oxycontin 20mg q 12h, did refuse also in the pm of 12/19 but agreeable this am Continue frequency of IV Dilaudid to 0.5mg IV q4h (from q3h) Return to oxycodone 15 mg every 6 as needed Continue tizanidine Continue increased dose of Cymbalta Scheduling Tylenol 1000 3 times daily Adding Tegretol for adjunctive pain control 0.1 mg of clonidine in the a.m. of 12/19 Dexamethasone 2 doses IV offered lidoerm patch, pt states back is not issue Attempt improved sleep with trazodone at bedtime additional dose 12/19, does not wish for any additional at this time (2) Leukocytosis: Plan: Suspected stress reaction related to vomiting,and received steroids IV on 12/16 She almost always has a WBC count of 11-12k through the years Blood cxs negative last admission, no signs of infection throughout entire body on all imaging and on exam. No fevers Downward trend of inflammatory markers over the last 1 month No acute infection suspected at this point in time (3) Type 2 diabetes mellitus: Plan: Patient's home regimen held on admission Hgb A1c 7.1 11/2023 Continue BSG checks, sliding-scale insulin, hypoglycemic protocol pharmacy consult placed Gastroparesis Recurrent episodes of N/V related to gastroparesis and opioid-induced constipation No acute pathology on CT, other than possible constipation and debris in stomach on recent CTA abd/pel from gastroparesis Restart Relistor adding Senokot Continue Zofran and Compazine as needed (4) HTN (hypertension): Plan: BPs controlled Continue her, lisinopril reduced dose and continue metoprolol,and Hydralazine 25mg TID adding clonidine on 12/19 (5) Depression: Plan: Continue duloxetine 60mg PO daily Xanax is ordered as needed but she says po benzos do not work for her-must be IV sleep deprivation will give one dose trazadone hs, try again 12/19 (6) PAD (peripheral artery disease): Plan: Continue on aspirin and Plavix. On CT :stenosis of the right superficial femoral artery 80%, stenosis of the right external iliac artery 75%, osteoarthrosis of the right common iliac artery 50%. No significant change from previously. Vascular Med consult appreciated Consult Vascular Surgery for PAD opinion, no intervention needed Plan DVT prophylaxis-on Lovenox Admission and Anticipated Discharge Date Admission Date: December 16, 2023 Subjective pt states is having poor pain control but did not take her oxycontin last pm agree to take it this am, Physical Exam Physical Exam: awake and alert, c/o pain, has some ecchymotic areas on leg cardiac exam is regular lungs are clear Results & Data Results & Data Vital Signs (Past 12 Hours) Vital Signs Temp Pulse Resp BP Pulse Ox O2 Del Method 12/21/23 14:31 98.2 F 61 16 111/67 98 Room Air 12/21/23 07:31 97.9 F 71 17 127/67 96 Room Air PG Care Time/CCT Total # of Minutes Spent Total Time Spent with Patient: Total time spent is greater than 50% in coordination of care (as documented) at patient's floor/unit and/or counseling patient: Coding Level of Care Code 15066 SUB INP/OBS CARE 2/35MIN Diagnoses Chronic pain G89.29 Chronic pain type: other chronic pain Leukocytosis D72.829 Leukocytosis type: unspecified Type 2 diabetes mellitus E11.69; Z79.4 Diabetes mellitus complication status: with other specified complication Diabetes mellitus residential insulin use: with buttermaker helper use HTN (hypertension) I10 Depression F32.9 PAD (peripheral artery disease) I73.9 (1) Chronic pain Chronic pain type: other chronic pain Qualified Code(s): G89.29 - Other chronic pain (2) Leukocytosis Leukocytosis type: unspecified Qualified Code(s): D72.829 - Elevated white blood cell count, unspecified (3) Type 2 diabetes mellitus Diabetes mellitus complication status: with other specified complication Diabetes mellitus residential insulin use: with buttermaker helper use Qualified Code(s): E11.69 - Type 2 diabetes mellitus with other specified complication; Z79.4 - tank terminal gauger (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
--- NOTE | 2023-12-21 15:34 | Pharmacy Report ---
Pharmacy Glycemic Short Note 2 - Date of Service December 21, 2023 - Glycemic Short BSG Results (Last 24 hours): 12/20/23 12/20/23 12/21/23 16:21 21:31 07:37 POC Glucose 147 H 125 H 127 H 12/21/23 11:25 POC Glucose 115 H OUTPATIENT ANTIDIABETIC REGIMEN: * Lantus 10 units SQ qHS * Lispro 5 units TID with meals plus sliding scale * HbA1c: 7.1% (12/02/23) ASSESSMENT: 12/20: * Mariana received 25 units of insulin yesterday (10 were basal) * Fasting BSG within goal range, continue current basal regimen * Received 4mg IV dexamethasone x2 days ending yesterday, Novolog parameters loosened as steroid effects wear off. 12/17: * Ms Witt is a 58yo diabetic F admitted for pain control. * Pt is known to pharmacy glycemic service from past admissions. * Pt received 10mg IV dexamethasone yesterday morning, which led to hyperglycemia throughout the afternoon/evening yesterday. BSGs appear to be resolved today. * Pharmacy will continue to follow and adjust regimen as indicated. PLAN FOR INPATIENT GLYCEMIC CONTROL: * Basal insulin * Lantus 10 units SQ qHS * Bolus insulin * NovoLog per scale ACHS or Q6hrs while NPO * Goal Range: Low 110 mg/dL - High 140 mg/dL * Correction Factor: 35 mg/dL/unit * Nutritional / Prandial insulin per carb ratio of 1 unit per 10 grams CHO consumed
[2023-12-22] MEDS: oxyCODONE HCL 10 MG TABCR (OxyCONTIN) PO STA (10:11)
--- NOTE | 2023-12-22 16:16 | Hospitalist Progress Note ---
Date of Service December 22, 2023 Assessment & Plan (1) Chronic pain: Plan: Returns with severe pain-pain originally described on previous admission as being in her left mid back and radiating down bilat groins and into bilateral thighs and left leg Now, pt continues stating severe pain down entire LLE to foot. With excellent palpable pulses in left foot. Previous workup over the last few weeks to months has been quite extensive to include CTA abd/pel (high grade PAD Right pelvis/RLE), CXR (negative), MRI lumbar and thoracic spine (HNP L4-5 with neuroforaminal stenosis), CT abd/pel x 2 (nothing acute, some mild sigmoid colon thickening and constipation, debris in stomach), Arterial Doppler LLE, left femur MRI (moderate left knee effusion) Seen by Vascular Medicine botyh Dr Lin and Dr Fuentes,. who does not think any intervention warranted to LLE that would help pain from vascular standpoint increased oxycontin to 30 bid, using decadron in case this is from HNP L3-4, Continue frequency of IV Dilaudid to 0.5mg IV q4h (from q3h) Return to oxycodone 15 mg every 6 as needed Continue tizanidine Continue increased dose of Cymbalta now 60 mg Scheduling Tylenol 1000 3 times daily Tegretol for adjunctive pain control, increased dose 12/22/23 0.1 mg of clonidine in the a.m. of 12/19, also for pain and bp control Dexamethasone 2 doses IV, one dose po offered lidoerm patch, pt states back is not issue Attempt improved sleep with trazodone at bedtime additional dose 12/19, does not wish for any additional at this time (2) Leukocytosis: Plan: Suspected stress reaction related to vomiting,and received steroids IV on 12/16 She almost always has a WBC count of 11-12k through the years Blood cxs negative last admission, no signs of infection throughout entire body on all imaging and on exam. No fevers Downward trend of inflammatory markers over the last 1 month No acute infection suspected at this point in time (3) Type 2 diabetes mellitus: Plan: Patient's home regimen held on admission Hgb A1c 7.1 11/2023 Continue BSG checks, sliding-scale insulin, hypoglycemic protocol pharmacy consult placed Gastroparesis Recurrent episodes of N/V related to gastroparesis and opioid-induced constipation No acute pathology on CT, other than possible constipation and debris in stomach on recent CTA abd/pel from gastroparesis Restart Relistor adding Senokot having bowel movement also Continue Zofran and Compazine as needed (4) HTN (hypertension): Plan: BPs controlled Continue her, lisinopril reduced dose and continue metoprolol,and Hydralazine 25mg TID adding clonidine on 12/19 (5) Depression: Plan: Continue duloxetine 60mg PO daily Xanax is ordered as needed but she says po benzos do not work for her-must be IV sleep deprivation will give one dose trazadone hs, try again 12/19 (6) PAD (peripheral artery disease): Plan: Continue on aspirin and Plavix. On CT :stenosis of the right superficial femoral artery 80%, stenosis of the right external iliac artery 75%, osteoarthrosis of the right common iliac artery 50%. No significant change from previously. Vascular Med consult appreciated Consult Vascular Surgery for PAD opinion, no intervention needed Plan DVT prophylaxis-on Lovenox Admission and Anticipated Discharge Date Admission Date: December 16, 2023 Subjective pt states is having poor pain control , this seems to maybe be radicular in L3-4 distribution pain she states radiated from groin to foot and caused foot to spasm Physical Exam Physical Exam: awake and alert, c/o pain, cardiac exam is regular lungs are clear ' ecchymotic areas are cleared leg examined without lymphadenopathy or edema or redness Results & Data Results & Data Vital Signs (Past 12 Hours) Vital Signs Temp Pulse Resp BP BP Pulse Ox O2 Del Method 12/22/23 14:10 98.1 F 62 16 127/71 97 Room Air 12/22/23 07:52 Room Air 12/22/23 07:33 97.7 F 68 17 189/80 H 98 Room Air PG Care Time/CCT Total # of Minutes Spent Total Time Spent with Patient: Total time spent is greater than 50% in coordination of care (as documented) at patient's floor/unit and/or counseling patient: Coding Level of Care Code 63304 SUB INP/OBS CARE 3/50MIN Diagnoses Chronic pain G89.29 Chronic pain type: other chronic pain Leukocytosis D72.829 Leukocytosis type: unspecified Type 2 diabetes mellitus E11.69; Z79.4 Diabetes mellitus complication status: with other specified complication Diabetes mellitus terminal gauger insulin use: with half-way use HTN (hypertension) I10 Depression F32.9 PAD (peripheral artery disease) I73.9 (1) Chronic pain Chronic pain type: other chronic pain Qualified Code(s): G89.29 - Other chronic pain (2) Leukocytosis Leukocytosis type: unspecified Qualified Code(s): D72.829 - Elevated white blood cell count, unspecified (3) Type 2 diabetes mellitus Diabetes mellitus complication status: with other specified complication Diabetes mellitus half-way insulin use: with terminal gauger use Qualified Code(s): E11.69 - Type 2 diabetes mellitus with other specified complication; Z79.4 - termite helper (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
[2023-12-22] MEDS: dexAMETHasone 4 MG TAB PO ONE (17:30)
[2023-12-22] MEDS: carBAMazepine XR 200 MG TABCR PO SCH (20:57)
[2023-12-22] MEDS: oxyCODONE HCL 15 MG TABCR (OxyCONTIN) PO SCH (20:57)
[2023-12-23] MEDS: PROMETHAZINE HCL 6.25 MG in SODIUM CHLORIDE 0.9% 50 ML IV PRN (07:28)
[2023-12-23 08:22] LABS: Hematocrit (blood only) 37.9 % (37.0-47.0); Hemoglobin 12.4 g/dl (12.0-16.0); Mean Corpuscular Hemoglobin 26.8 pg (25.0-34.0); Mean Corpuscular Hgb Conc 32.7 g/dL (32.0-36.0); Mean Platelet Volume 9.5 fL (9.4-12.4); Platelet Count 357 K/uL (130-400); RDW Coefficient of Variation 14.9 % (11.5-14.5); RDW Standard Deviation 44.6 fL (36.4-46.3); Red Blood Count 4.62 M/uL (4.20-5.40); White Blood Count 14.29 K/ul (4.8-10.8)
[2023-12-23 08:40] LABS: Albumin Globulin Ratio 1.5 (0.9-2); Albumin Level 4.5 gm/dl (3.4-5.0); BUN Creatinine Ratio 35.9 (10-20); Bilirubin,Total 0.3 mg/dl (0.2-1.0); Calcium 9.3 mg/dl (8.6-10.3); Creatinine Clr Calc Pharmacy 133.5 ml/min; Est GFR (African American) 133.2 ml/min; Globulin 3.1 gm/dl (2.5-4.0); Potassium 4.1 mmol/L (3.5-5.1); Total Protein 7.6 gm/dl (6.0-8.3)
--- NOTE | 2023-12-23 12:07 | Hospitalist Progress Note ---
Date of Service December 23, 2023 Assessment & Plan (1) Chronic pain: Plan: Returns with severe pain-pain originally described on previous admission as being in her left mid back and radiating down bilat groins and into bilateral thighs and left leg Now, pt continues stating severe pain down entire LLE to foot. With palpable pulses in left foot. intermittent unexplained bruises to the distal left leg Previous workup over the last few weeks to months has been quite extensive to include CTA abd/pel (high grade PAD Right pelvis/RLE), CXR (negative), MRI lumbar and thoracic spine (HNP L4-5 with neuroforaminal stenosis), CT abd/pel x 2 (nothing acute, some mild sigmoid colon thickening and constipation, debris in stomach), Arterial Doppler LLE, left femur MRI (moderate left knee effusion) Seen by Vascular Medicine both Dr Lin and Dr Fuentes,. who does not think any intervention warranted to LLE that would help pain from vascular standpoint increased oxycontin to 45 bid, using decadron in case this is from HNP L3-4, Continue frequency of IV Dilaudid to 0.5mg IV q4h (from q3h) Return to oxycodone 15 mg every 6 as needed Continue tizanidine Continue increased dose of Cymbalta now 60 mg Scheduling Tylenol 1000 3 times daily Tegretol for adjunctive pain control, increased dose 12/22/23 0.1 mg of clonidine in the a.m. of 12/19, also for pain and bp control Dexamethasone 2 doses IV, one dose po offered lidoerm patch, pt states back is not issue Attempt improved sleep with trazodone at bedtime additional dose 12/19, does not wish for any additional at this time (2) Leukocytosis: Plan: Suspected stress reaction or steriod demargination She almost always has a WBC count of 11-12k through the years Blood cxs negative last admission, no signs of infection throughout entire body on all imaging and on exam. No fevers Downward trend of inflammatory markers over the last 1 month No acute infection suspected at this point in time (3) Type 2 diabetes mellitus: Plan: Patient's home regimen held on admission Hgb A1c 7.1 11/2023 Continue BSG checks, sliding-scale insulin, hypoglycemic protocol pharmacy consult placed Gastroparesis Recurrent episodes of N/V related to gastroparesis and opioid-induced constipation No acute pathology on CT, other than possible constipation and debris in stomach on recent CTA abd/pel from gastroparesis Restart Relistor adding Senokot having bowel movement also Continue Zofran and Compazine as needed (4) HTN (hypertension): Plan: BPs controlled Continue her, lisinopril reduced dose and continue metoprolol,and Hydralazine 25mg TID added clonidine on 12/19 (5) Depression: Plan: Continue duloxetine 60mg PO daily Xanax is ordered as needed but she says po benzos do not work for her-must be IV sleep deprivation will give one dose trazadone hs, prn (6) PAD (peripheral artery disease): Plan: Continue on aspirin and Plavix. On CT :stenosis of the right superficial femoral artery 80%, stenosis of the right external iliac artery 75%, osteoarthrosis of the right common iliac artery 50%. No significant change from previously. Vascular Med consult appreciated Consult Vascular Surgery for PAD opinion, no intervention needed Plan DVT prophylaxis-on Lovenox Admission and Anticipated Discharge Date Admission Date: December 16, 2023 Subjective pt complains of a cold feeling foot and has some ecchymotic areas on her distal tibia, palpable pulses though has had some spacing out of iv Dilaudid use Physical Exam Physical Exam: pt is worried about her cold foot, still needing iv pain meds but less frequent she has been having much less nausea and is eating well Results & Data Results & Data Vital Signs (Past 12 Hours) Vital Signs Temp Pulse Resp BP Pulse Ox O2 Del Method 12/23/23 07:27 98.1 F 68 16 173/76 H 97 Room Air 12/23/23 05:22 171/72 H Laboratory Results reviewed cbc reviewed chemistry PG Care Time/CCT Total # of Minutes Spent Total Time Spent with Patient: Total time spent is greater than 50% in coordination of care (as documented) at patient's floor/unit and/or counseling patient: Coding Level of Care Code 36207 SUB INP/OBS CARE 2/35MIN Diagnoses Chronic pain G89.29 Chronic pain type: other chronic pain Leukocytosis D72.829 Leukocytosis type: unspecified Type 2 diabetes mellitus E11.69; Z79.4 Diabetes mellitus complication status: with other specified complication Diabetes mellitus penitentiary insulin use: with penitentiary use HTN (hypertension) I10 Depression F32.9 PAD (peripheral artery disease) I73.9 (1) Chronic pain Chronic pain type: other chronic pain Qualified Code(s): G89.29 - Other chronic pain (2) Leukocytosis Leukocytosis type: unspecified Qualified Code(s): D72.829 - Elevated white blood cell count, unspecified (3) Type 2 diabetes mellitus Diabetes mellitus complication status: with other specified complication Diabetes mellitus penitentiary insulin use: with salvage determiner use Qualified Code(s): E11.69 - Type 2 diabetes mellitus with other specified complication; Z79.4 - terminal carman (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
[2023-12-23] MEDS ORDERED: traZODone HCL 50 MG TAB PO PRN (12:08)
[2023-12-23] MEDS: dexAMETHasone 4 MG TAB PO ONE (12:40)
--- NOTE | 2023-12-23 17:04 | Ultrasound Report ---
US arterial duplex LE LT CLINICAL HISTORY: weak pulse cool foot TECHNIQUE: Real-time grayscale and color and spectral Doppler ultrasound imaging of the bilateral low er extremity arteries was performed. Measurements calculated based on NASCET criteria. COMPARISON: Comparison is made to left extremity arterial ultrasound 12/10/2023 FINDINGS: Triphasic waveforms are seen to the level of the popliteal artery, the calf arteries demonstrate biph asic waveforms. Elevated velocities are seen in the common femoral artery, measuring up to 280 cm pre sent, and the femoral artery, measuring up to 283 cm/s, and in the posterior tibial artery, measuring up to 157 cm/s. Scattered plaque is seen. IMPRESSION: Interval increase in common femoral, superficial femoral, and posterior tibial artery velocities. Fin dings are compatible with arterial disease secondary to atherosclerosis. ACT 112: Negative or not required by law. Electronically signed by: Neil Mendieta M.D. 12/23/2023 5:03 PM
[2023-12-23] MEDS: oxyCODONE HCL 15 MG TABCR (OxyCONTIN) PO SCH (21:17)
[2023-12-24] MEDS: oxyCODONE HCL 15 MG TABCR (OxyCONTIN) PO SCH ×2 (08:29→21:11)
--- NOTE | 2023-12-24 09:43 | Pharmacy Report ---
Pharmacy Glycemic Short Note 2 - Date of Service December 24, 2023 - Glycemic Short BSG Results (Last 24 hours): 12/23/23 12/23/23 12/23/23 11:41 16:31 20:57 POC Glucose 142 H 198 H 233 H 12/24/23 07:36 POC Glucose 139 H OUTPATIENT ANTIDIABETIC REGIMEN: * Lantus 10 units SQ qHS * Lispro 5 units TID with meals plus sliding scale * HbA1c: 7.1% (12/02/23) ASSESSMENT: 12/23: * Dexamethasone 4 mg po x1 time doses administered in the afternoons on 12/21 and 12/22. Anticipate effects will persist today then dissipate, assuming no further doses ordered. * AM fasting BSG within goal range. No change to Lantus * Post-prandial BSG's were elevated x2 yesterday, likely 2nd dexamethasone. Will slightly tighten CHO ratio today. 12/20: * Mariana received 25 units of insulin yesterday (10 were basal) * Fasting BSG within goal range, continue current basal regimen * Received 4mg IV dexamethasone x2 days ending yesterday, Novolog parameters loosened as steroid effects wear off. 12/17: * Ms Witt is a 58yo diabetic F admitted for pain control. * Pt is known to pharmacy glycemic service from past admissions. * Pt received 10mg IV dexamethasone yesterday morning, which led to hyperglycemia throughout the afternoon/evening yesterday. BSGs appear to be resolved today. * Pharmacy will continue to follow and adjust regimen as indicated. PLAN FOR INPATIENT GLYCEMIC CONTROL: * Basal insulin * Lantus 10 units SQ qHS * Bolus insulin * NovoLog per scale ACHS or Q6hrs while NPO * Goal Range: Low 110 mg/dL - High 140 mg/dL * Correction Factor: 30 mg/dL/unit * Nutritional / Prandial insulin per carb ratio of 1 unit per 9 grams CHO consumed
[2023-12-24] MEDS: oxyCODONE HCL 15 MG TABCR (OxyCONTIN) PO ONE (13:17)
--- NOTE | 2023-12-24 17:38 | Hospitalist Progress Note ---
Date of Service December 24, 2023 Assessment & Plan (1) Chronic pain: Plan: Returns with severe pain-pain originally described on previous admission as being in her left mid back and radiating down bilat groins and into bilateral thighs and left leg Now, pt continues stating severe pain down entire LLE to foot. With palpable pulses in left foot. intermittent unexplained bruises to the distal left leg Previous workup over the last few weeks to months has been quite extensive to include CTA abd/pel (high grade PAD Right pelvis/RLE), CXR (negative), MRI lumbar and thoracic spine (HNP L4-5 with neuroforaminal stenosis), CT abd/pel x 2 (nothing acute, some mild sigmoid colon thickening and constipation, debris in stomach), Arterial Doppler LLE, left femur MRI (moderate left knee effusion) Seen by Vascular Medicine both Dr Lin and Dr Fuentes,. who does not think any intervention warranted to LLE that would help pain from vascular standpoint increased oxycontin to 45 bid, patient did not take on 12/22 but agrees to take on 12/23 decadron in case this is from HNP L3-4, stopping Decadron 12/23 Continue frequency of IV Dilaudid to 0.5mg IV q4h (from q3h) Return to oxycodone 15 mg every 6 as needed Continue tizanidine Continue increased dose of Cymbalta now 60 mg Scheduling Tylenol 1000 3 times daily Tegretol for adjunctive pain control, increased dose 12/22/23 0.1 mg of clonidine in the a.m. of 12/19, also for pain and bp control Dexamethasone 2 doses IV, one dose po offered lidoerm patch, pt states back is not issue Attempt improved sleep with trazodone at bedtime additional dose 12/19, does not wish for any additional at this time (2) Leukocytosis: Plan: Suspected stress reaction or steriod demargination She almost always has a WBC count of 11-12k through the years Blood cxs negative last admission, no signs of infection throughout entire body on all imaging and on exam. No fevers Downward trend of inflammatory markers over the last 1 month No acute infection suspected at this point in time (3) Type 2 diabetes mellitus: Plan: Patient's home regimen held on admission Hgb A1c 7.1 11/2023 Continue BSG checks, sliding-scale insulin, hypoglycemic protocol pharmacy consult placed Gastroparesis Recurrent episodes of N/V related to gastroparesis and opioid-induced constipation No acute pathology on CT, other than possible constipation and debris in stomach on recent CTA abd/pel from gastroparesis Restart Relistor adding Senokot having bowel movement also Continue Zofran and Compazine as needed (4) HTN (hypertension): Plan: BPs controlled Continue her, lisinopril reduced dose and continue metoprolol,and Hydralazine 25 mg TID added clonidine on 12/19 (5) Depression: Plan: Continue duloxetine 60mg PO daily Xanax is ordered as needed but she says po benzos do not work for her-must be IV sleep deprivation will give one dose trazadone hs, prn (6) PAD (peripheral artery disease): Plan: Continue on aspirin and Plavix. On CT :stenosis of the right superficial femoral artery 80%, stenosis of the right external iliac artery 75%, osteoarthrosis of the right common iliac artery 50%. No significant change from previously. Vascular Med consult appreciated Consult Vascular Surgery for PAD opinion, no intervention needed Plan DVT prophylaxis-on Lovenox Admission and Anticipated Discharge Date Admission Date: December 16, 2023 Subjective Patient still concerned about black and blue marked on her leg. Doppler did not show any significant stenosis. Still escalating oral opiate pain control to improve so the patient can get out of the hospital Physical Exam Physical Exam: pt is worried about her ecchymosis on her left leg. Still needing iv pain meds but less frequent she has been having much less nausea and is eating well Results & Data Results & Data Vital Signs (Past 12 Hours) Vital Signs Temp Pulse Resp BP Pulse Ox O2 Del Method 12/24/23 07:20 98.4 F 67 16 182/72 H 97 Room Air PG Care Time/CCT Total # of Minutes Spent Total Time Spent with Patient: Total time spent is greater than 50% in coordination of care (as documented) at patient's floor/unit and/or counseling patient: Coding Level of Care Code 33593 SUB INP/OBS CARE 2/35MIN Diagnoses Chronic pain G89.29 Chronic pain type: other chronic pain Leukocytosis D72.829 Leukocytosis type: unspecified Type 2 diabetes mellitus E11.69; Z79.4 Diabetes mellitus complication status: with other specified complication Diabetes mellitus middle or intermediate school principal insulin use: with skilled nursing use HTN (hypertension) I10 Depression F32.9 PAD (peripheral artery disease) I73.9 (1) Chronic pain Chronic pain type: other chronic pain Qualified Code(s): G89.29 - Other chronic pain (2) Leukocytosis Leukocytosis type: unspecified Qualified Code(s): D72.829 - Elevated white blood cell count, unspecified (3) Type 2 diabetes mellitus Diabetes mellitus complication status: with other specified complication Diabetes mellitus middle or intermediate school principal insulin use: with middle or intermediate school principal use Qualified Code(s): E11.69 - Type 2 diabetes mellitus with other specified complication; Z79.4 - skilled nursing (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
[2023-12-24] MEDS: traZODone HCL 50 MG TAB PO SCH (22:08)
--- NOTE | 2023-12-25 00:48 | Communication Note ---
Date of Service: December 25, 2023 Was notified by nursing that patient was experiencing 10/10 left upper arm pain after an ultrasound guided IV was removed from her arm earlier in the day. I went to bedside, there was mild erythema surrounding site of prior IV as well as minimal edema. Brachial and radial pulses intact. Patient has not been febrile and not tachycardic, had mild elevation in WBC on 12/22 although that was prior to this pain/swelling. I placed an order for CBC with diff, metabolic panel and ordered an ultrasound of the left upper extremity. Nursing offered patient her a vailable PRN pain medications.
[2023-12-25 07:43] LABS: Basophils # (auto) 0.06 K/uL (0.00-0.20); Basophils % (auto) 0.4 %; Eosinophils # (auto) 0.41 K/uL (0.00-0.50); Eosinophils % (auto) 2.9 %; Hematocrit (blood only) 33.4 % (37.0-47.0); Hemoglobin 10.8 g/dl (12.0-16.0); Immature Granulocytes # (auto) 0.09 K/uL (0.01-0.20); Immature Granulocytes % (auto) 0.6 %; Lymphocytes # (auto) 2.21 K/uL (1.20-3.40); Lymphocytes % (auto) 15.7 %; Mean Corpuscular Hemoglobin 26.7 pg (25.0-34.0); Mean Corpuscular Hgb Conc 32.3 g/dL (32.0-36.0); Mean Corpuscular Volume 82.7 fL (80.0-100.0); Mean Platelet Volume 10.2 fL (9.4-12.4); Monocytes # (auto) 1.34 K/uL (0.11-0.59); Monocytes % (auto) 9.5 %; Neutrophils # (auto) 9.96 K/uL (1.40-6.50); Neutrophils % (auto) 70.9 %; Platelet Count 322 K/uL (130-400); RDW Coefficient of Variation 15.4 % (11.5-14.5); RDW Standard Deviation 46.6 fL (36.4-46.3); Red Blood Count 4.04 M/uL (4.20-5.40); White Blood Count 14.07 K/ul (4.8-10.8)
[2023-12-25 09:10] LABS: Albumin Globulin Ratio 1.5 (0.9-2); Albumin Level 3.9 gm/dl (3.4-5.0); BUN Creatinine Ratio 46.2 (10-20); Bilirubin,Total 0.4 mg/dl (0.2-1.0); Creatinine Clr Calc Pharmacy 133.5 ml/min; Est GFR (African American) 133.2 ml/min; Globulin 2.6 gm/dl (2.5-4.0); Potassium 4.1 mmol/L (3.5-5.1); Total Protein 6.5 gm/dl (6.0-8.3)
--- NOTE | 2023-12-25 10:08 | Ultrasound Report ---
ULTRASOUND LEFT UPPER EXTREMITY VENOUS CLINICAL HISTORY: Left arm pain and swelling. COMPARISON STUDY: No priors.. TECHNIQUE: Real-time, grayscale, and color Doppler sonography of the deep veins of the left upper ext remity is performed. Compression and augmentation were utilized. FINDINGS: There is no sonographic evidence of deep venous thrombosis identified in the left upper ext remity. The left internal jugular, axillary, and brachial veins are patent and normally compressible. Normal venous waveforms and augmentation are seen within the left subclavian vein. There is occlusiv e superficial venous thrombosis in the basilic vein which measures greater than 5 cm in length. There is also a small amount of nonocclusive thrombus suggested in the distal cephalic vein. The visualize d radial and ulnar veins are patent. IMPRESSION: 1. There is no sonographic evidence of deep venous thrombosis identified in the left upper extremity. 2. Long segment of occlusive superficial venous thrombus in the basilic vein. 3. There is also likely a small amount of nonocclusive superficial thrombus within the cephalic vein. ACT 112: Negative or not required by law. Electronically signed by: Finn Bradshaw M.D. 12/25/2023 10:07 AM
[2023-12-25] MEDS: NAPHAZOLIN/PHENIRAMIN OPH SOLN 15 ML BTL OP SCH (17:31)
--- NOTE | 2023-12-25 20:08 | Hospitalist Progress Note ---
Date of Service December 25, 2023 Assessment & Plan (1) Chronic pain: Plan: Returns with severe pain-pain originally described on previous admission as being in her left mid back and radiating down bilat groins and into bilateral thighs and left leg Now, pt continues stating severe pain down entire LLE to foot. With palpable pulses in left foot. intermittent unexplained bruises to the distal left leg Previous workup over the last few weeks to months has been quite extensive to include CTA abd/pel (high grade PAD Right pelvis/RLE), CXR (negative), MRI lumbar and thoracic spine (HNP L4-5 with neuroforaminal stenosis), CT abd/pel x 2 (nothing acute, some mild sigmoid colon thickening and constipation, debris in stomach), Arterial Doppler LLE, left femur MRI (moderate left knee effusion) Seen by Vascular Medicine both Dr Lin and Dr Fuentes,. who does not think any intervention warranted to LLE that would help pain from vascular standpoint increased oxycontin to 45 bid, patient did not take on 12/22 but agrees to take on 12/23 decadron in case this is from HNP L3-4, stopping Decadron 12/23 Continue frequency of IV Dilaudid to 0.5mg IV q4h (from q3h) Return to oxycodone 15 mg every 6 as needed Continue tizanidine Continue increased dose of Cymbalta now 60 mg Scheduling Tylenol 1000 3 times daily Tegretol for adjunctive pain control, increased dose 12/22/23 0.1 mg of clonidine in the a.m. of 12/19, also for pain and bp control Dexamethasone 2 doses IV, one dose po offered lidoerm patch, pt states back is not issue Attempt improved sleep with trazodone at bedtime additional dose 12/19, does not wish for any additional at this time Patient feels her pain is now in poor control we will see if pain management will be discussed with her on 12/25 and she now more open to consider their intervention (2) Leukocytosis: Plan: Suspected stress reaction or steriod demargination She almost always has a WBC count of 11-12k through the years Blood cxs negative last admission, no signs of infection throughout entire body on all imaging and on exam. No fevers Downward trend of inflammatory markers over the last 1 month No acute infection suspected at this point in time (3) Type 2 diabetes mellitus: Plan: Patient's home regimen held on admission Hgb A1c 7.1 11/2023 Continue BSG checks, sliding-scale insulin, hypoglycemic protocol pharmacy consult placed Gastroparesis Recurrent episodes of N/V related to gastroparesis and opioid-induced constipation No acute pathology on CT, other than possible constipation and debris in stomach on recent CTA abd/pel from gastroparesis Restart Relistor adding Senokot having bowel movement also Continue Zofran and Compazine as needed (4) HTN (hypertension): Plan: BPs controlled Continue her, lisinopril reduced dose and continue metoprolol,and Hydralazine 25mg TID added clonidine on 12/19 (5) Depression: Plan: Continue duloxetine 60mg PO daily Xanax is ordered as needed but she says po benzos do not work for her-must be IV sleep deprivation will give one dose trazadone hs, prn (6) PAD (peripheral artery disease): Plan: Continue on aspirin and Plavix. On CT :stenosis of the right superficial femoral artery 80%, stenosis of the right external iliac artery 75%, osteoarthrosis of the right common iliac artery 50%. No significant change from previously. Vascular Med consult appreciated Consult Vascular Surgery for PAD opinion, no intervention needed Plan DVT prophylaxis-on Lovenox Admission and Anticipated Discharge Date Admission Date: December 16, 2023 Subjective Patient with escalating pain not controlled with her current regimen and now more open to consider pain management consultation Doppler did not show any significant stenosis. Still escalating oral opiate pain control to improve so the patient can get out of the hospital Physical Exam Physical Exam: pt is worried about her ecchymosis on her left leg. Still needing iv pain meds less frequent but still present Once again recurrence of nausea and anorexia on 12/25/2023 Results & Data Results & Data Vital Signs (Past 12 Hours) Vital Signs Temp Pulse Resp BP Pulse Ox O2 Del Method 12/25/23 17:17 99.1 F 68 18 152/76 H 96 Room Air Laboratory Results Reviewed CBC reviewed chemistry PG Care Time/CCT Total # of Minutes Spent Total Time Spent with Patient: Total time spent is greater than 50% in coordination of care (as documented) at patient's floor/unit and/or counseling patient: Coding Level of Care Code 83467 SUB INP/OBS CARE 2/35MIN Diagnoses Chronic pain G89.29 Chronic pain type: other chronic pain Leukocytosis D72.829 Leukocytosis type: unspecified Type 2 diabetes mellitus E11.69; Z79.4 Diabetes mellitus complication status: with other specified complication Diabetes mellitus m[facility]p insulin use: with m[facility]p use HTN (hypertension) I10 Depression F32.9 PAD (peripheral artery disease) I73.9 (1) Chronic pain Chronic pain type: other chronic pain Qualified Code(s): G89.29 - Other chronic pain (2) Leukocytosis Leukocytosis type: unspecified Qualified Code(s): D72.829 - Elevated white blood cell count, unspecified (3) Type 2 diabetes mellitus Diabetes mellitus complication status: with other specified complication Diabetes mellitus m[facility]p insulin use: with m[facility]p use Qualified Code(s): E11.69 - Type 2 diabetes mellitus with other specified complication; Z79.4 - longterm (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
--- NOTE | 2023-12-26 09:37 | Pain Management Progress Note ---
Date of Service December 26, 2023 Assessment & Plan (1) Opioid dependence: Substance use status: with unspecified opioid-induced disorder Qualified Code(s): F11.29 - Opioid dependence with unspecified opioid-induced disorder (2) Chronic pain: Chronic pain type: other chronic pain Qualified Code(s): G89.29 - Other chronic pain Plan Patient is agreeable to conversation today. I did have a conversation with her about her increased needs of opioids being out of proportion to findings. We did have a discussion about opioid tolerance vs opioid induced hyperalgesia. Either way the continued escalation of opioids is not benefitting her in the long run. I did ask the patient to do some research into opioid induced hyperalgesia to help realize that the increased opioids may be causing the increased pain. She is agreeable to research this with an open mind. We have discussed trigger point injections into the left flank previously but as she is reporting multiple areas of pain I do not think she would appreciate any significant improvement. Admission and Anticipated Discharge Date Admission Date: December 16, 2023 Subjective Mrs. Witt is a 58-year-old female with pain complaints of left flank, left groin, left leg down to the foot. She does cyclically return to the emergency department and requires admission for pain control, most recently was home for 2 days before she returned. Current medication regimen includes OxyContin 45 mg twice daily, oxycodone 15 mg every 6 hours if needed as well as hydromorphone 0.5 mg every 4 hours. She continues to complain of 10 out of 10 pain despite this current medication regimen. Case discussed with Dr. Deena Sandoval Physical Exam Physical Exam: GENERAL: This is a 58 year old female in no acute distress. HEAD/FACE: Normocephalic and atraumatic. EYES: No drainage or conjunctival injection. Mild swelling of eyelids. ENT: Nose without bleeding or discharge. Oral mucosa moist. NECK: Full ROM without apparent pain. No swelling or masses noted. RESPIRATORY: Patient with unlabored breathing. No signs of respiratory distress. CHEST/AXILLA: Chest movement symmetrical. No deformities noted. ABDOMEN/GI: No distension BACK: Moves without difficulty. Hyperalgesia of the left flank. SKIN: [place], warm and dry. No rash noted. MS/EXTREMITY: Moving extremities appropriately. 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 NEURO: Alert and appears oriented. Speech is fluent. Cranial Nerves are grossly intact. PSYCH: Alert, depressed, tearful, but agreeable to conversation.
--- NOTE | 2023-12-26 13:20 | Pharmacy Report ---
Pharmacy Glycemic Short Note 2 - Date of Service December 26, 2023 - Glycemic Short BSG Results (Last 24 hours): 12/25/23 12/25/23 12/26/23 16:55 20:24 07:42 POC Glucose 129 H 223 H 141 H 12/26/23 11:44 POC Glucose 139 H OUTPATIENT ANTIDIABETIC REGIMEN: * Lantus 10 units SQ qHS * Lispro 5 units TID with meals plus sliding scale * HbA1c: 7.1% (12/02/23) ASSESSMENT: 12/24: * Mariana received 25 units of SQ insulin yesterday (10 units of basal and 15 units of bolus) * Fasting BSG of 141 mg/dL. Fasting has fluctuated the past few days on a consistent dose of Lantus; 102, 139, 113, 141 mg/dL. If BSG is > 140 mg/dL x 2 consecutive days, consider increasing basal insulin. 12/23: * Dexamethasone 4 mg po x1 time doses administered in the afternoons on 12/21 and 12/22. Anticipate effects will persist today then dissipate, assuming no further doses ordered. * AM fasting BSG within goal range. No change to Lantus * Post-prandial BSG's were elevated x2 yesterday, likely 2nd dexamethasone. Will slightly tighten CHO ratio today. 12/20: * Mariana received 25 units of insulin yesterday (10 were basal) * Fasting BSG within goal range, continue current basal regimen * Received 4mg IV dexamethasone x2 days ending yesterday, Novolog parameters loosened as steroid effects wear off. 12/17: * Ms Witt is a 58yo diabetic F admitted for pain control. * Pt is known to pharmacy glycemic service from past admissions. * Pt received 10mg IV dexamethasone yesterday morning, which led to hyperglycemia throughout the afternoon/evening yesterday. BSGs appear to be resolved today. * Pharmacy will continue to follow and adjust regimen as indicated. PLAN FOR INPATIENT GLYCEMIC CONTROL: * Basal insulin * Lantus 10 units SQ qHS * Bolus insulin * NovoLog per scale ACHS or Q6hrs while NPO * Goal Range: Low 110 mg/dL - High 140 mg/dL * Correction Factor: 30 mg/dL/unit * Nutritional / Prandial insulin per carb ratio of 1 unit per 9 grams CHO consumed
--- NOTE | 2023-12-26 22:14 | Hospitalist Progress Note ---
Date of Service December 26, 2023 Assessment & Plan (1) Chronic pain: Plan: Returns with severe pain-pain originally described on previous admission as being in her left mid back and radiating down bilat groins and into bilateral thighs and left leg Now, pt continues stating severe pain down entire LLE to foot. With palpable pulses in left foot. intermittent unexplained bruises to the distal left leg Previous workup over the last few weeks to months has been quite extensive to include CTA abd/pel (high grade PAD Right pelvis/RLE), CXR (negative), MRI lumbar and thoracic spine (HNP L4-5 with neuroforaminal stenosis), CT abd/pel x 2 (nothing acute, some mild sigmoid colon thickening and constipation, debris in stomach), Arterial Doppler LLE, left femur MRI (moderate left knee effusion) Seen by Vascular Medicine both Dr Lin and Dr Fuentes,. who does not think any intervention warranted to LLE that would help pain from vascular standpoint increased oxycontin to 45 bid, patient did not take on 12/22 but agrees to take on 12/23 decadron in case this is from HNP L3-4, stopping Decadron 12/23 Continue frequency of IV Dilaudid to 0.5mg IV q4h (from q3h) Return to oxycodone 15 mg every 6 as needed Continue tizanidine Continue increased dose of Cymbalta now 60 mg Scheduling Tylenol 1000 3 times daily Tegretol for adjunctive pain control, increased dose 12/22/23 0.1 mg of clonidine in the a.m. 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 (2) Leukocytosis: Plan: Suspected stress reaction or steriod demargination She almost always has a WBC count of 11-12k through the years Blood cxs negative last admission, no signs of infection throughout entire body on all imaging and on exam. No fevers Downward trend of inflammatory markers over the last 1 month No acute infection suspected at this point in time (3) Type 2 diabetes mellitus: Plan: Patient's home regimen held on admission Hgb A1c 7.1 11/2023 Continue BSG checks, sliding-scale insulin, hypoglycemic protocol pharmacy consult placed Gastroparesis Recurrent episodes of N/V related to gastroparesis and opioid-induced constipation No acute pathology on CT, other than possible constipation and debris in stomach on recent CTA abd/pel from gastroparesis Restart Relistor adding Senokot having bowel movement also Continue Zofran and Compazine as needed (4) HTN (hypertension): Plan: BPs controlled Continue her, lisinopril reduced dose and continue metoprolol,and Hydralazine 25mg TID added clonidine on 12/19 (5) Depression: Plan: Continue duloxetine 60mg PO daily Xanax is ordered as needed but she says po benzos do not work for her-must be IV sleep deprivation will give one dose trazadone hs, prn (6) PAD (peripheral artery disease): Plan: Continue on aspirin and Plavix. On CT :stenosis of the right superficial femoral artery 80%, stenosis of the right external iliac artery 75%, osteoarthrosis of the right common iliac artery 50%. No significant change from previously. Vascular Med consult appreciated Consult Vascular Surgery for PAD opinion, no intervention needed Plan DVT prophylaxis-on Lovenox Admission and Anticipated Discharge Date Admission Date: December 16, 2023 Subjective Patient reports she continues to have pain. Review of Systems Review of Systems: All systems reviewed & are unremarkable except as noted in HPI & below Physical Exam Physical Exam: Still iv pain meds less frequent but still present Patient is distraught. Results & Data Results & Data Vital Signs (Past 12 Hours) Vital Signs Temp Pulse Resp BP Pulse Ox O2 Del Method 12/26/23 20:30 36.7 C 71 17 138/65 94 Room Air 12/26/23 16:31 36.6 C 69 18 171/61 H 97 Room Air PG Care Time/CCT Total # of Minutes Spent Total Time Spent with Patient: Total time spent is greater than 50% in coordination of care (as documented) at patient's floor/unit and/or counseling patient: Coding Level of Care Code 10397 SUB INP/OBS CARE 2/35MIN Diagnoses Chronic pain G89.29 Chronic pain type: other chronic pain Leukocytosis D72.829 Leukocytosis type: unspecified Type 2 diabetes mellitus E11.69; Z79.4 Diabetes mellitus complication status: with other specified complication Diabetes mellitus mcc insulin use: with bed bug exterminator use HTN (hypertension) I10 Depression F32.9 PAD (peripheral artery disease) I73.9 (1) Chronic pain Chronic pain type: other chronic pain Qualified Code(s): G89.29 - Other chronic pain (2) Leukocytosis Leukocytosis type: unspecified Qualified Code(s): D72.829 - Elevated white blood cell count, unspecified (3) Type 2 diabetes mellitus Diabetes mellitus complication status: with other specified complication Diabetes mellitus bed bug exterminator insulin use: with mcc use Qualified Code(s): E11.69 - Type 2 diabetes mellitus with other specified complication; Z79.4 - group home (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
[2023-12-27 06:48] LABS: Hematocrit (blood only) 33.5 % (37.0-47.0); Hemoglobin 10.8 g/dl (12.0-16.0); Mean Corpuscular Hemoglobin 26.5 pg (25.0-34.0); Mean Corpuscular Hgb Conc 32.2 g/dL (32.0-36.0); Mean Corpuscular Volume 82.3 fL (80.0-100.0); Mean Platelet Volume 9.6 fL (9.4-12.4); Platelet Count 275 K/uL (130-400); RDW Coefficient of Variation 15.2 % (11.5-14.5); RDW Standard Deviation 45.9 fL (36.4-46.3); Red Blood Count 4.07 M/uL (4.20-5.40); White Blood Count 8.06 K/ul (4.8-10.8)
[2023-12-27 07:09] LABS: BUN Creatinine Ratio 29.5 (10-20); C Reactive Protein 3.98 mg/dl (0-0.5); Calcium 8.9 mg/dl (8.6-10.3); Creatinine Clr Calc Pharmacy 118.4 ml/min; Est GFR (African American) 128.1 ml/min; Est GFR (Non-African American) 110.5 ml/min; Potassium 4.2 mmol/L (3.5-5.1)
--- NOTE | 2023-12-27 20:34 | Hospitalist Progress Note ---
Date of Service December 27, 2023 Assessment & Plan (1) Chronic pain: Plan: Returns with severe pain-pain originally described on previous admission as being in her left mid back and radiating down bilat groins and into bilateral thighs and left leg Now, pt continues stating severe pain down entire LLE to foot. With palpable pulses in left foot. intermittent unexplained bruises to the distal left leg Previous workup over the last few weeks to months has been quite extensive to include CTA abd/pel (high grade PAD Right pelvis/RLE), CXR (negative), MRI lumbar and thoracic spine (HNP L4-5 with neuroforaminal stenosis), CT abd/pel x 2 (nothing acute, some mild sigmoid colon thickening and constipation, debris in stomach), Arterial Doppler LLE, left femur MRI (moderate left knee effusion) Seen by Vascular Medicine both Dr Lin and Dr Fuentes,. who does not think any intervention warranted to LLE that would help pain from vascular standpoint increased oxycontin to 45 bid, patient did not take on 12/22 but agrees to take on 12/23 decadron in case this is from HNP L3-4, stopping Decadron 12/23 Continue frequency of IV Dilaudid to 0.5mg IV q4h (from q3h) Return to oxycodone 15 mg every 6 as needed Continue tizanidine Continue increased dose of Cymbalta now 60 mg Scheduling Tylenol 1000 3 times daily Tegretol for adjunctive pain control, increased dose 12/22/23 0.1 mg of clonidine in the a.m. 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 On 12/26, patient appears to be doing better, however she continues to require IV dilaudid. will continue to monitor. (2) Leukocytosis: Plan: Suspected stress reaction or steriod demargination She almost always has a WBC count of 11-12k through the years Blood cxs negative last admission, no signs of infection throughout entire body on all imaging and on exam. No fevers Downward trend of inflammatory markers over the last 1 month No acute infection suspected at this point in time (3) Type 2 diabetes mellitus: Plan: Patient's home regimen held on admission Hgb A1c 7.1 11/2023 Continue BSG checks, sliding-scale insulin, hypoglycemic protocol pharmacy consult placed Gastroparesis Recurrent episodes of N/V related to gastroparesis and opioid-induced constipation No acute pathology on CT, other than possible constipation and debris in stomach on recent CTA abd/pel from gastroparesis Restart Relistor adding Senokot having bowel movement also Continue Zofran and Compazine as needed (4) HTN (hypertension): Plan: BPs controlled Continue her, lisinopril reduced dose and continue metoprolol,and Hydralazine 25mg TID added clonidine on 12/19 (5) Depression: Plan: Continue duloxetine 60mg PO daily Xanax is ordered as needed but she says po benzos do not work for her-must be IV sleep deprivation will give one dose trazadone hs, prn (6) PAD (peripheral artery disease): Plan: Continue on aspirin and Plavix. On CT :stenosis of the right superficial femoral artery 80%, stenosis of the right external iliac artery 75%, osteoarthrosis of the right common iliac artery 50%. No significant change from previously. Vascular Med consult appreciated Consult Vascular Surgery for PAD opinion, no intervention needed Plan DVT prophylaxis-on Lovenox Admission and Anticipated Discharge Date Admission Date: December 16, 2023 Subjective 58 yo female reports no new symptoms. Review of Systems Review of Systems: All systems reviewed & are unremarkable except as noted in HPI & below Physical Exam Physical Exam: Still iv pain meds less frequent but still present Patient appears more calm today. Results & Data Results & Data Vital Signs (Past 12 Hours) Vital Signs Temp Pulse Resp BP Pulse Ox O2 Del Method 12/27/23 19:52 36.6 C 14 154/74 H 98 Room Air 12/27/23 15:46 36.6 C 64 16 165/71 H 97 Room Air PG Care Time/CCT Total # of Minutes Spent Total Time Spent with Patient: Total time spent is greater than 50% in coordination of care (as documented) at patient's floor/unit and/or counseling patient: Coding Level of Care Code 84393 SUB INP/OBS CARE MIN Diagnoses Chronic pain G89.29 Chronic pain type: other chronic pain Leukocytosis D72.829 Leukocytosis type: unspecified Type 2 diabetes mellitus E11.69; Z79.4 Diabetes mellitus complication status: with other specified complication Diabetes mellitus mcfp insulin use: with mcfp use HTN (hypertension) I10 Depression F32.9 PAD (peripheral artery disease) I73.9 (1) Chronic pain Chronic pain type: other chronic pain Qualified Code(s): G89.29 - Other chronic pain (2) Leukocytosis Leukocytosis type: unspecified Qualified Code(s): D72.829 - Elevated white blood cell count, unspecified (3) Type 2 diabetes mellitus Diabetes mellitus complication status: with other specified complication Diabetes mellitus termite inspector insulin use: with termite inspector use Qualified Code(s): E11.69 - Type 2 diabetes mellitus with other specified complication; Z79.4 - terminal worker (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
[2023-12-28] MEDS: hydrALAZINE HCL 20 MG/ML VIAL IV STA (06:34)
[2023-12-28] MEDS: METHYLNALTREXONE BROMIDE 12 MG/0.6 ML VIAL SQ SCH (07:45)
[2023-12-28 08:07] LABS: Hematocrit (blood only) 34.4 % (37.0-47.0); Hemoglobin 10.7 g/dl (12.0-16.0); Mean Corpuscular Hemoglobin 25.9 pg (25.0-34.0); Mean Corpuscular Hgb Conc 31.1 g/dL (32.0-36.0); Mean Corpuscular Volume 83.3 fL (80.0-100.0); Platelet Count 302 K/uL (130-400); RDW Coefficient of Variation 15.1 % (11.5-14.5); RDW Standard Deviation 46.4 fL (36.4-46.3); Red Blood Count 4.13 M/uL (4.20-5.40); White Blood Count 10.12 K/ul (4.8-10.8)
[2023-12-28 08:16] LABS: BUN Creatinine Ratio 30.2 (10-20); Calcium 9.2 mg/dl (8.6-10.3); Creatinine Clr Calc Pharmacy 98.3 ml/min; Est GFR (African American) 120.5 ml/min; Est GFR (Non-African American) 103.9 ml/min; Potassium 4.5 mmol/L (3.5-5.1)
--- NOTE | 2023-12-28 10:46 | Communication Note ---
Date of Service: December 28, 2023 Patient has had trials of docusate, sennosides, miralax for opioid induced constipation. Patient is controlled now on relistor.
--- NOTE | 2023-12-28 22:43 | Hospitalist Progress Note ---
Date of Service December 28, 2023 Assessment & Plan (1) Chronic pain: Plan: Returns with severe pain-pain originally described on previous admission as being in her left mid back and radiating down bilat groins and into bilateral thighs and left leg Now, pt continues stating severe pain down entire LLE to foot. With palpable pulses in left foot. intermittent unexplained bruises to the distal left leg Previous workup over the last few weeks to months has been quite extensive to include CTA abd/pel (high grade PAD Right pelvis/RLE), CXR (negative), MRI lumbar and thoracic spine (HNP L4-5 with neuroforaminal stenosis), CT abd/pel x 2 (nothing acute, some mild sigmoid colon thickening and constipation, debris in stomach), Arterial Doppler LLE, left femur MRI (moderate left knee effusion) Seen by Vascular Medicine both Dr Lin and Dr Fuentes,. who does not think any intervention warranted to LLE that would help pain from vascular standpoint increased oxycontin to 45 bid, patient did not take on 12/22 but agrees to take on 12/23 decadron in case this is from HNP L3-4, stopping Decadron 12/23 Continue frequency of IV Dilaudid to 0.5mg IV q4h (from q3h) Return to oxycodone 15 mg every 6 as needed Continue tizanidine Continue increased dose of Cymbalta now 60 mg Scheduling Tylenol 1000 3 times daily Tegretol for adjunctive pain control, increased dose 12/22/23 0.1 mg of clonidine in the a.m. 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 On 12/26, patient appears to be doing better, however she continues to require IV dilaudid. will continue to monitor. On 12/27 Patient with intemittent fever. low grade temp of 37.7 however patient is on tylenol. will montior. Patient does have a slight bump on her barbosa. (2) Leukocytosis: Plan: Suspected stress reaction or steriod demargination She almost always has a WBC count of 11-12k through the years Blood cxs negative last admission, no signs of infection throughout entire body on all imaging and on exam. No fevers Downward trend of inflammatory markers over the last 1 month No acute infection suspected at this point in time (3) Type 2 diabetes mellitus: Plan: Patient's home regimen held on admission Hgb A1c 7.1 11/2023 Continue BSG checks, sliding-scale insulin, hypoglycemic protocol pharmacy consult placed Gastroparesis Recurrent episodes of N/V related to gastroparesis and opioid-induced constipation No acute pathology on CT, other than possible constipation and debris in stomach on recent CTA abd/pel from gastroparesis Restart Relistor adding Senokot having bowel movement also Continue Zofran and Compazine as needed (4) HTN (hypertension): Plan: BPs controlled Continue her, lisinopril reduced dose and continue metoprolol,and Hydralazine 25mg TID added clonidine on 12/19 (5) Depression: Plan: Continue duloxetine 60mg PO daily Xanax is ordered as needed but she says po benzos do not work for her-must be IV sleep deprivation will give one dose trazadone hs, prn (6) PAD (peripheral artery disease): Plan: Continue on aspirin and Plavix. On CT :stenosis of the right superficial femoral artery 80%, stenosis of the right external iliac artery 75%, osteoarthrosis of the right common iliac artery 50%. No significant change from previously. Vascular Med consult appreciated Consult Vascular Surgery for PAD opinion, no intervention needed Plan DVT prophylaxis-on Lovenox Admission and Anticipated Discharge Date Admission Date: December 16, 2023 Subjective 58 yo female reports feeling lousy today. She cannot really go into detail. But reports her left lower leg is painful and feels a bump though she denies trauma. Review of Systems Review of Systems: All systems reviewed & are unremarkable except as noted in HPI & below Physical Exam Physical Exam: Still iv pain meds less frequent but still present Patient appears more calm today. Mild erythema noted on her left leg. Results & Data Results & Data Vital Signs (Past 12 Hours) Vital Signs Temp Pulse Resp BP BP Pulse Ox O2 Del Method 12/28/23 19:58 37.3 C 72 16 173/68 H 97 Room Air 12/28/23 14:32 36.9 C 83 16 147/69 H 93 Room Air PG Care Time/CCT Total # of Minutes Spent Total Time Spent with Patient: Total time spent is greater than 50% in coordination of care (as documented) at patient's floor/unit and/or counseling patient: Coding Level of Care Code 90884 SUB INP/OBS CARE 2/35MIN Diagnoses Chronic pain G89.29 Chronic pain type: other chronic pain Leukocytosis D72.829 Leukocytosis type: unspecified Type 2 diabetes mellitus E11.69; Z79.4 Diabetes mellitus complication status: with other specified complication Diabetes mellitus moth exterminator insulin use: with moth exterminator use HTN (hypertension) I10 Depression F32.9 PAD (peripheral artery disease) I73.9 (1) Chronic pain Chronic pain type: other chronic pain Qualified Code(s): G89.29 - Other chronic pain (2) Leukocytosis Leukocytosis type: unspecified Qualified Code(s): D72.829 - Elevated white blood cell count, unspecified (3) Type 2 diabetes mellitus Diabetes mellitus complication status: with other specified complication Diabetes mellitus fpc insulin use: with moth exterminator use Qualified Code(s): E11.69 - Type 2 diabetes mellitus with other specified complication; Z79.4 - moth 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
[2023-12-29 06:51] LABS: BUN Creatinine Ratio 34.8 (10-20); C Reactive Protein 2.58 mg/dl (0-0.5); Calcium 9.4 mg/dl (8.6-10.3); Creatinine Clr Calc Pharmacy 113.2 ml/min; Est GFR (African American) 126.2 ml/min; Est GFR (Non-African American) 108.9 ml/min; Potassium 4.3 mmol/L (3.5-5.1)
[2023-12-29 06:56] LABS: Hematocrit (blood only) 36.5 % (37.0-47.0); Hemoglobin 11.8 g/dl (12.0-16.0); Mean Corpuscular Hemoglobin 26.6 pg (25.0-34.0); Mean Corpuscular Hgb Conc 32.3 g/dL (32.0-36.0); Mean Corpuscular Volume 82.4 fL (80.0-100.0); Mean Platelet Volume 9.7 fL (9.4-12.4); Platelet Count 322 K/uL (130-400); RDW Standard Deviation 45.3 fL (36.4-46.3); Red Blood Count 4.43 M/uL (4.20-5.40); White Blood Count 9.04 K/ul (4.8-10.8)
--- NOTE | 2023-12-29 10:41 | Ultrasound Report ---
LEFT LOWER EXTREMITY VENOUS DOPPLER HISTORY: Acute pain and swelling of left lower leg swelling of left leg COMPARISON STUDY: 05/18/2023 FINDINGS: There is normal compressibility, flow, and augmentation within the left lower extremity dinah p venous system. IMPRESSION: No DVT within the left lower extremity. ACT 112: Negative or not required by law. Electronically signed by: Puneet Howard M.D. 12/29/2023 10:40 AM
--- NOTE | 2023-12-29 21:26 | Hospitalist Progress Note ---
Date of Service December 29, 2023 Assessment & Plan (1) Chronic pain: Plan: Returns with severe pain-pain originally described on previous admission as being in her left mid back and radiating down bilat groins and into bilateral thighs and left leg Now, pt continues stating severe pain down entire LLE to foot. With palpable pulses in left foot. intermittent unexplained bruises to the distal left leg Previous workup over the last few weeks to months has been quite extensive to include CTA abd/pel (high grade PAD Right pelvis/RLE), CXR (negative), MRI lumbar and thoracic spine (HNP L4-5 with neuroforaminal stenosis), CT abd/pel x 2 (nothing acute, some mild sigmoid colon thickening and constipation, debris in stomach), Arterial Doppler LLE, left femur MRI (moderate left knee effusion) Seen by Vascular Medicine both Dr Lin and Dr Fuentes,. who does not think any intervention warranted to LLE that would help pain from vascular standpoint increased oxycontin to 45 bid, patient did not take on 12/22 but agrees to take on 12/23 decadron in case this is from HNP L3-4, stopping Decadron 12/23 Continue frequency of IV Dilaudid to 0.5mg IV q4h (from q3h) Return to oxycodone 15 mg every 6 as needed Continue tizanidine Continue increased dose of Cymbalta now 60 mg Scheduling Tylenol 1000 3 times daily Tegretol for adjunctive pain control, increased dose 12/22/23 0.1 mg of clonidine in the a.m. 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 On 12/26, patient appears to be doing better, however she continues to require IV dilaudid. will continue to monitor. On 12/27 Patient with intemittent fever. low grade temp of 37.7 however patient is on tylenol. will montior. Patient does have a slight bump on her barbosa. On 12/28 Patient had no fever, vials stable, doppler uls negative for dvt on leg. will obtain ct scan. CRP is improving as well. (2) Leukocytosis: Plan: Suspected stress reaction or steriod demargination She almost always has a WBC count of 11-12k through the years Blood cxs negative last admission, no signs of infection throughout entire body on all imaging and on exam. No fevers Downward trend of inflammatory markers over the last 1 month No acute infection suspected at this point in time (3) Type 2 diabetes mellitus: Plan: Patient's home regimen held on admission Hgb A1c 7.1 11/2023 Continue BSG checks, sliding-scale insulin, hypoglycemic protocol pharmacy consult placed Gastroparesis Recurrent episodes of N/V related to gastroparesis and opioid-induced constipation No acute pathology on CT, other than possible constipation and debris in stomach on recent CTA abd/pel from gastroparesis Restart Relistor adding Senokot having bowel movement also Continue Zofran and Compazine as needed (4) HTN (hypertension): Plan: BPs controlled Continue her, lisinopril reduced dose and continue metoprolol,and Hydralazine 25mg TID added clonidine on 12/19 (5) Depression: Plan: Continue duloxetine 60mg PO daily Xanax is ordered as needed but she says po benzos do not work for her-must be IV sleep deprivation will give one dose trazadone hs, prn (6) PAD (peripheral artery disease): Plan: Continue on aspirin and Plavix. On CT :stenosis of the right superficial femoral artery 80%, stenosis of the right external iliac artery 75%, osteoarthrosis of the right common iliac artery 50%. No significant change from previously. Vascular Med consult appreciated Consult Vascular Surgery for PAD opinion, no intervention needed Plan DVT prophylaxis-on Lovenox Admission and Anticipated Discharge Date Admission Date: December 16, 2023 Subjective 58 yo female reports feeling crummy today due to her pain. Pain is not controlled, asking to increase pain medicine. Review of Systems Review of Systems: All systems reviewed & are unremarkable except as noted in HPI & below Physical Exam Physical Exam: Still iv pain meds less frequent but still present Patient appears more calm today. Mild erythema noted on her left leg. Results & Data Results & Data Vital Signs (Past 12 Hours) Vital Signs Temp Pulse Resp BP Pulse Ox O2 Del Method 12/29/23 20:40 36.6 C 75 18 195/92 H 97 Room Air 12/29/23 15:46 36.6 C 70 16 155/78 H 98 Room Air PG Care Time/CCT Total # of Minutes Spent Total Time Spent with Patient: Total time spent is greater than 50% in coordination of care (as documented) at patient's floor/unit and/or counseling patient: Coding Level of Care Code 70482 SUB INP/OBS CARE 2/35MIN Diagnoses Chronic pain G89.29 Chronic pain type: other chronic pain Leukocytosis D72.829 Leukocytosis type: unspecified Type 2 diabetes mellitus E11.69; Z79.4 Diabetes mellitus complication status: with other specified complication Diabetes mellitus terminal make up operator insulin use: with care home use HTN (hypertension) I10 Depression F32.9 PAD (peripheral artery disease) I73.9 (1) Chronic pain Chronic pain type: other chronic pain Qualified Code(s): G89.29 - Other chronic pain (2) Leukocytosis Leukocytosis type: unspecified Qualified Code(s): D72.829 - Elevated white blood cell count, unspecified (3) Type 2 diabetes mellitus Diabetes mellitus complication status: with other specified complication Diabetes mellitus terminal make up operator insulin use: with terminal make up operator use Qualified Code(s): E11.69 - Type 2 diabetes mellitus with other specified complication; Z79.4 - half-way (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
[2023-12-29] MEDS: OPTIRAY 320 100ml IV ONE (22:35)
--- NOTE | 2023-12-30 05:33 | CT Scan Report ---
Exam(s): CT EXTREMITY LEFT LOWER W/WO Contrast IV Amt: 88 ml optiray 320 EXAM: CT Left Lower Extremity Without and With Intravenous Contrast CLINICAL HISTORY: Reason for exam: leg swellinhg. TECHNIQUE: Axial computed tomography images of the left lower extremity without and with intravenous contrast. Automated exposure control was utilized for the study. A dose lowering technique was utilized adhering to the principles of ALARA. CONTRAST: Patient received 88 ml optiray 320 of IV contrast COMPARISON: No relevant prior studies available. FINDINGS: Bones/joints: Unremarkable. No acute fracture. No dislocation. Soft tissues: There is subcutaneous tissue edema in the left leg. No soft tissue air beneath impression:. There is 1.6 cm focus of intramuscular lipoma seen in the soleus muscle on image 51, series 6. In IMPRESSION: Subcutaneous tissue edema in the left leg, suggestive of cellulitis Electronically signed by: Hasmukh Quintana MD 12/30/23 05:32 AM
[2023-12-30 07:25] LABS: Hematocrit (blood only) 33.2 % (37.0-47.0); Hemoglobin 10.6 g/dl (12.0-16.0); Mean Corpuscular Hemoglobin 26.2 pg (25.0-34.0); Mean Corpuscular Hgb Conc 31.9 g/dL (32.0-36.0); Mean Corpuscular Volume 82.2 fL (80.0-100.0); Mean Platelet Volume 9.8 fL (9.4-12.4); Platelet Count 302 K/uL (130-400); RDW Coefficient of Variation 14.8 % (11.5-14.5); RDW Standard Deviation 44.9 fL (36.4-46.3); Red Blood Count 4.04 M/uL (4.20-5.40); White Blood Count 8.65 K/ul (4.8-10.8)
[2023-12-30 07:35] LABS: BUN Creatinine Ratio 32.4 (10-20); C Reactive Protein 1.47 mg/dl (0-0.5); Calcium 9.7 mg/dl (8.6-10.3); Creatinine Clr Calc Pharmacy 140.7 ml/min; Est GFR (African American) 135.6 ml/min; Potassium 4.2 mmol/L (3.5-5.1)
[2023-12-30] MEDS: HYDROmorphone INJ 0.5 MG/0.5 ML SYR IV PRN (12:42)
--- NOTE | 2023-12-30 13:57 | Ultrasound Report ---
US arterial duplex LE LT HISTORY: 58 years-old Female cold extremity acute pain and swelling of the left lower extremity COMPARISON: 12/23/2023 TECHNIQUE: Multiple real-time sonographic images of the left lower extremity arterial structures were obtained assessing grayscale and spectral flow FINDINGS: Atherosclerosis. Elevated peak systolic velocities within the common femoral artery measures up to 32 8 cm/s, within the superficial femoral artery measured 233 cm/s and within the anterior tibial artery proximally measured 291 cm/s. No arterial occlusion. Triphasic and biphasic waveforms above the leve l of the knee. Biphasic and monophasic waveforms within the lower leg. There is spectral broadening w ithin the peroneal artery with diminished flow. Peak systolic velocities measure up to 10 cm/s within the dorsalis pedis artery. IMPRESSION: 1. No arterial occlusion identified. 2. Atherosclerosis with areas of monophasic waveforms in the lower leg. 3. Areas of elevated peak systolic velocities, notably within the common femoral artery compatible wi th luminal stenosis. ACT 112: Negative or not required by law. The above report was generated using voice recognition software. It may contain grammatical, syntax o r spelling errors. Electronically signed by: Puneet Howard M.D. 12/30/2023 1:55 PM
[2023-12-30] MEDS: diphenhydrAMINE Capsule 25 MG CAP PO PRN (16:13)
--- NOTE | 2023-12-30 22:43 | Hospitalist Progress Note ---
Date of Service December 30, 2023 Assessment & Plan (1) Chronic pain: Plan: Returns with severe pain-pain originally described on previous admission as being in her left mid back and radiating down bilat groins and into bilateral thighs and left leg Now, pt continues stating severe pain down entire LLE to foot. With palpable pulses in left foot. intermittent unexplained bruises to the distal left leg Previous workup over the last few weeks to months has been quite extensive to include CTA abd/pel (high grade PAD Right pelvis/RLE), CXR (negative), MRI lumbar and thoracic spine (HNP L4-5 with neuroforaminal stenosis), CT abd/pel x 2 (nothing acute, some mild sigmoid colon thickening and constipation, debris in stomach), Arterial Doppler LLE, left femur MRI (moderate left knee effusion) Seen by Vascular Medicine both Dr Lin and Dr Fuentes,. who does not think any intervention warranted to LLE that would help pain from vascular standpoint increased oxycontin to 45 bid, patient did not take on 12/22 but agrees to take on 12/23 decadron in case this is from HNP L3-4, stopping Decadron 12/23 Continue frequency of IV Dilaudid to 0.5mg IV q4h (from q3h) Return to oxycodone 15 mg every 6 as needed Continue tizanidine Continue increased dose of Cymbalta now 60 mg Scheduling Tylenol 1000 3 times daily Tegretol for adjunctive pain control, increased dose 12/22/23 0.1 mg of clonidine in the a.m. 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 On 12/26, patient appears to be doing better, however she continues to require IV dilaudid. will continue to monitor. On 12/27 Patient with intemittent fever. low grade temp of 37.7 however patient is on tylenol. will montior. Patient does have a slight bump on her barbosa. On 12/28 Patient had no fever, vials stable, doppler uls negative for dvt on leg. will obtain ct scan. CRP is improving as well. On 12/29 Reviewed pain medicine. Patient has not been taking oxycontin 45 mg in the evening. Explained that today, I will increase dilaudid to q3h but only for today. She will need to take thhe oxycontine in the evening. In regards to her leg, it appears to be an ecchymosis as it is resolving. Also crp is negative. (2) Leukocytosis: Plan: Suspected stress reaction or steriod demargination She almost always has a WBC count of 11-12k through the years Blood cxs negative last admission, no signs of infection throughout entire body on all imaging and on exam. No fevers Downward trend of inflammatory markers over the last 1 month No acute infection suspected at this point in time (3) Type 2 diabetes mellitus: Plan: Patient's home regimen held on admission Hgb A1c 7.1 11/2023 Continue BSG checks, sliding-scale insulin, hypoglycemic protocol pharmacy consult placed Gastroparesis Recurrent episodes of N/V related to gastroparesis and opioid-induced constipation No acute pathology on CT, other than possible constipation and debris in stomach on recent CTA abd/pel from gastroparesis Restart Relistor adding Senokot having bowel movement also Continue Zofran and Compazine as needed (4) HTN (hypertension): Plan: BPs controlled Continue her, lisinopril reduced dose and continue metoprolol,and Hydralazine 25mg TID added clonidine on 12/19 (5) Depression: Plan: Continue duloxetine 60mg PO daily Xanax is ordered as needed but she says po benzos do not work for her-must be IV sleep deprivation will give one dose trazadone hs, prn (6) PAD (peripheral artery disease): Plan: Continue on aspirin and Plavix. On CT :stenosis of the right superficial femoral artery 80%, stenosis of the right external iliac artery 75%, osteoarthrosis of the right common iliac artery 50%. No significant change from previously. Vascular Med consult appreciated Consult Vascular Surgery for PAD opinion, no intervention needed Plan DVT prophylaxis-on Lovenox Admission and Anticipated Discharge Date Admission Date: December 16, 2023 Subjective Patient reports no new symptoms. Continues to have pain. Review of Systems Review of Systems: All systems reviewed & are unremarkable except as noted in HPI & below Physical Exam Physical Exam: Still iv pain meds less frequent but still present Patient appears more calm today. Mild erythema noted on her left leg. Results & Data Results & Data Vital Signs (Past 12 Hours) Vital Signs Temp Pulse Resp BP Pulse Ox O2 Del Method 12/30/23 20:35 36.9 C 79 16 180/78 H 96 Room Air 12/30/23 16:52 72 171/77 H 12/30/23 15:34 36.7 C 67 16 196/67 H 99 Room Air PG Care Time/CCT Total # of Minutes Spent Total Time Spent with Patient: Total time spent is greater than 50% in coordination of care (as documented) at patient's floor/unit and/or counseling patient: Coding Level of Care Code 64271 SUB INP/OBS CARE 235MIN Diagnoses Chronic pain G89.29 Chronic pain type: other chronic pain Leukocytosis D72.829 Leukocytosis type: unspecified Type 2 diabetes mellitus E11.69; Z79.4 Diabetes mellitus complication status: with other specified complication Diabetes mellitus intermediate designer insulin use: with fdc use HTN (hypertension) I10 Depression F32.9 PAD (peripheral artery disease) I73.9 (1) Chronic pain Chronic pain type: other chronic pain Qualified Code(s): G89.29 - Other chronic pain (2) Leukocytosis Leukocytosis type: unspecified Qualified Code(s): D72.829 - Elevated white blood cell count, unspecified (3) Type 2 diabetes mellitus Diabetes mellitus complication status: with other specified complication Diabetes mellitus intermediate designer insulin use: with fdc use Qualified Code(s): E11.69 - Type 2 diabetes mellitus with other specified complication; Z79.4 - half-way (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
[2023-12-31 07:23] LABS: Hematocrit (blood only) 33.5 % (37.0-47.0); Hemoglobin 10.7 g/dl (12.0-16.0); Mean Corpuscular Hemoglobin 26.4 pg (25.0-34.0); Mean Corpuscular Hgb Conc 31.9 g/dL (32.0-36.0); Mean Corpuscular Volume 82.7 fL (80.0-100.0); Mean Platelet Volume 9.4 fL (9.4-12.4); Platelet Count 276 K/uL (130-400); RDW Coefficient of Variation 14.9 % (11.5-14.5); RDW Standard Deviation 45.6 fL (36.4-46.3); Red Blood Count 4.05 M/uL (4.20-5.40); White Blood Count 9.62 K/ul (4.8-10.8)
[2023-12-31 07:43] LABS: BUN Creatinine Ratio 35.4 (10-20); C Reactive Protein 0.75 mg/dl (0-0.5); Calcium 9.3 mg/dl (8.6-10.3); Creatinine Clr Calc Pharmacy 108.5 ml/min; Est GFR (African American) 124.4 ml/min; Est GFR (Non-African American) 107.4 ml/min; Potassium 4.7 mmol/L (3.5-5.1)
[2023-12-31] MEDS: HYDROmorphone INJ 0.5 MG/0.5 ML SYR IV PRN ×2 (11:55→19:40)
--- NOTE | 2023-12-31 14:01 | Pharmacy Report ---
Pharmacy Glycemic Short Note 2 - Date of Service December 31, 2023 - Glycemic Short BSG Results (Last 24 hours): 12/30/23 12/30/23 12/31/23 16:43 20:33 06:53 Glucose 142 H POC Glucose 160 H 251 H 12/31/23 12/31/23 07:48 11:26 Glucose POC Glucose 164 H 94 OUTPATIENT ANTIDIABETIC REGIMEN: * Lantus 10 units SQ qHS * Lispro 5 units TID with meals plus sliding scale * HbA1c: 7.1% (12/02/23) ASSESSMENT: 12/30: * Patient received total of 38 units of insulin yesterday, of which 10 were basal * Fasting BSG 142 mg/dL - continue same * No change to Cf/cr 12/24: * Mariana received 25 units of SQ insulin yesterday (10 units of basal and 15 units of bolus) * Fasting BSG of 141 mg/dL. Fasting has fluctuated the past few days on a consistent dose of Lantus; 102, 139, 113, 141 mg/dL. If BSG is > 140 mg/dL x 2 consecutive days, consider increasing basal insulin. 12/23: * Dexamethasone 4 mg po x1 time doses administered in the afternoons on 12/21 and 12/22. Anticipate effects will persist today then dissipate, assuming no further doses ordered. * AM fasting BSG within goal range. No change to Lantus * Post-prandial BSG's were elevated x2 yesterday, likely 2nd dexamethasone. Will slightly tighten CHO ratio today. 12/20: * Mariana received 25 units of insulin yesterday (10 were basal) * Fasting BSG within goal range, continue current basal regimen * Received 4mg IV dexamethasone x2 days ending yesterday, Novolog parameters loosened as steroid effects wear off. 12/17: * Ms Witt is a 58yo diabetic F admitted for pain control. * Pt is known to pharmacy glycemic service from past admissions. * Pt received 10mg IV dexamethasone yesterday morning, which led to hyperglycemia throughout the afternoon/evening yesterday. BSGs appear to be resolved today. * Pharmacy will continue to follow and adjust regimen as indicated. PLAN FOR INPATIENT GLYCEMIC CONTROL: * Basal insulin * Lantus 10 units SQ qHS * Bolus insulin * NovoLog per scale ACHS or Q6hrs while NPO * Goal Range: Low 110 mg/dL - High 140 mg/dL * Correction Factor: 25 mg/dL/unit * Nutritional / Prandial insulin per carb ratio of 1 unit per 8 grams CHO consumed
--- NOTE | 2023-12-31 22:38 | Hospitalist Progress Note ---
Date of Service December 31, 2023 Assessment & Plan (1) Chronic pain: Plan: Returns with severe pain-pain originally described on previous admission as being in her left mid back and radiating down bilat groins and into bilateral thighs and left leg Now, pt continues stating severe pain down entire LLE to foot. With palpable pulses in left foot. intermittent unexplained bruises to the distal left leg Previous workup over the last few weeks to months has been quite extensive to include CTA abd/pel (high grade PAD Right pelvis/RLE), CXR (negative), MRI lumbar and thoracic spine (HNP L4-5 with neuroforaminal stenosis), CT abd/pel x 2 (nothing acute, some mild sigmoid colon thickening and constipation, debris in stomach), Arterial Doppler LLE, left femur MRI (moderate left knee effusion) Seen by Vascular Medicine both Dr Lin and Dr Fuentes,. who does not think any intervention warranted to LLE that would help pain from vascular standpoint increased oxycontin to 45 bid, patient did not take on 12/22 but agrees to take on 12/23 decadron in case this is from HNP L3-4, stopping Decadron 12/23 Continue frequency of IV Dilaudid to 0.5mg IV q4h (from q3h) Return to oxycodone 15 mg every 6 as needed Continue tizanidine Continue increased dose of Cymbalta now 60 mg Scheduling Tylenol 1000 3 times daily Tegretol for adjunctive pain control, increased dose 12/22/23 0.1 mg of clonidine in the a.m. 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 On 12/26, patient appears to be doing better, however she continues to require IV dilaudid. will continue to monitor. On 12/27 Patient with intemittent fever. low grade temp of 37.7 however patient is on tylenol. will montior. Patient does have a slight bump on her barbosa. On 12/28 Patient had no fever, vials stable, doppler uls negative for dvt on leg. will obtain ct scan. CRP is improving as well. On 12/29 Reviewed pain medicine. Patient has not been taking oxycontin 45 mg in the evening. Explained that today, I will increase dilaudid to q3h but only for today. She will need to take thhe oxycontine in the evening. In regards to her leg, it appears to be an ecchymosis as it is resolving. Also crp is negative. On 12/30 Patient continues to complain of pain. Her imaging of her left leg has been negative. This included [place] dopller negative for DVT US arterial doppler which was also benign, ct scan which only showed inflammation. clinically not acting like an infection. Will obtain an MRI. Inflammatory markers decreasing. (2) Leukocytosis: Plan: Suspected stress reaction or steriod demargination She almost always has a WBC count of 11-12k through the years Blood cxs negative last admission, no signs of infection throughout entire body on all imaging and on exam. No fevers Downward trend of inflammatory markers over the last 1 month No acute infection suspected at this point in time (3) Type 2 diabetes mellitus: Plan: Patient's home regimen held on admission Hgb A1c 7.1 11/2023 Continue BSG checks, sliding-scale insulin, hypoglycemic protocol pharmacy consult placed Gastroparesis Recurrent episodes of N/V related to gastroparesis and opioid-induced constipation No acute pathology on CT, other than possible constipation and debris in stomach on recent CTA abd/pel from gastroparesis Restart Relistor adding Senokot having bowel movement also Continue Zofran and Compazine as needed (4) HTN (hypertension): Plan: BPs controlled Continue her, lisinopril reduced dose and continue metoprolol,and Hydralazine 25mg TID added clonidine on 12/19 (5) Depression: Plan: Continue duloxetine 60mg PO daily Xanax is ordered as needed but she says po benzos do not work for her-must be IV sleep deprivation will give one dose trazadone hs, prn (6) PAD (peripheral artery disease): Plan: Continue on aspirin and Plavix. On CT :stenosis of the right superficial femoral artery 80%, stenosis of the right external iliac artery 75%, osteoarthrosis of the right common iliac artery 50%. No significant change from previously. Vascular Med consult appreciated Consult Vascular Surgery for PAD opinion, no intervention needed Plan DVT prophylaxis-on Lovenox Admission and Anticipated Discharge Date Admission Date: December 16, 2023 Subjective Patient complaining of severe left foot pain. Patient is asking to increase her dilaudid to q 3h again. at bedside. Review of Systems Review of Systems: All systems reviewed & are unremarkable except as noted in HPI & below Physical Exam Physical Exam: Patient is in moderate distress Sobbing, her left leg appears to have ecchymosis on her anterior barbosa and medial ankle. Foot is colder but pedal pulses palpated. Patient is able to plantar flex and dosi flex her foot and move her toes. Results & Data Results & Data Vital Signs (Past 12 Hours) Vital Signs Temp Pulse Resp BP Pulse Ox O2 Del Method 12/31/23 19:21 36.3 C L 70 18 189/81 H 96 Room Air 12/31/23 15:11 36.4 C L 65 16 132/67 97 Room Air 12/31/23 14:18 37.0 C 67 17 146/67 H 97 Room Air PG Care Time/CCT Total # of Minutes Spent Total Time Spent with Patient: Total time spent is greater than 50% in coordination of care (as documented) at patient's floor/unit and/or counseling patient: Coding Level of Care Code 24865 SUB INP/OBS CARE 2/35MIN Diagnoses Chronic pain G89.29 Chronic pain type: other chronic pain Leukocytosis D72.829 Leukocytosis type: unspecified Type 2 diabetes mellitus E11.69; Z79.4 Diabetes mellitus complication status: with other specified complication Diabetes mellitus predatory animal exterminator insulin use: with predatory animal exterminator use HTN (hypertension) I10 Depression F32.9 PAD (peripheral artery disease) I73.9 (1) Chronic pain Chronic pain type: other chronic pain Qualified Code(s): G89.29 - Other chronic pain (2) Leukocytosis Leukocytosis type: unspecified Qualified Code(s): D72.829 - Elevated white blood cell count, unspecified (3) Type 2 diabetes mellitus Diabetes mellitus complication status: with other specified complication Diabetes mellitus predatory animal exterminator insulin use: with predatory animal exterminator use Qualified Code(s): E11.69 - Type 2 diabetes mellitus with other specified complication; Z79.4 - predatory animal 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
[2024-01-01 07:15] LABS: Mean Corpuscular Hemoglobin 26.5 pg (25.0-34.0); Mean Corpuscular Hgb Conc 32.3 g/dL (32.0-36.0); Mean Platelet Volume 9.5 fL (9.4-12.4); Platelet Count 299 K/uL (130-400); RDW Standard Deviation 45.9 fL (36.4-46.3); Red Blood Count 3.78 M/uL (4.20-5.40); White Blood Count 10.37 K/ul (4.8-10.8)
[2024-01-01 07:31] LABS: BUN Creatinine Ratio 34.7 (10-20); C Reactive Protein 0.78 mg/dl (0-0.5); Calcium 9.3 mg/dl (8.6-10.3); Creatinine Clr Calc Pharmacy 106.3 ml/min; Est GFR (African American) 123.6 ml/min; Est GFR (Non-African American) 106.6 ml/min; Potassium 4.9 mmol/L (3.5-5.1)
[2024-01-01] MEDS: GADOBUTROL 65ML VIAL IV ONE (12:29)
--- NOTE | 2024-01-01 13:28 | Pharmacy Report ---
Pharmacy Glycemic Sign Off Nt - Date of Service January 01, 2024 - Assessment & Plan ASSESSMENT: * Pharmacy was consulted by Dr Martinez on 12/15 for glycemic control and to write orders per [facility] inpatient glycemic control protocol. * Major changes made by pharmacy to antidiabetic regimen include: * added novolog scale, resumed home basal * Patient has been receiving/requiring 20-30 units of insulin per day for adequate glycemic control * BSGs ranging 90-160 mg/dl * Regimen has only required minor adjustments over the past 48hrs to achieve this level of control * Please see recommendations for outpatient antidiabetic regimen below. PLAN FOR INPATIENT GLYCEMIC CONTROL: No changes needed to current regimen. * Continue basal insulin with Lantus 10 units hs * Continue NovoLog per scale ACHS/Q6hrs while NPO * Goal range = 110-140 mg/dl * CF = 25 mg/dl/unit * CR = 1 unit for ever 8 g CHO consumed * Pharmacy is signing off of glycemic consult and will no longer be making adjustments to inpatient regimen. Please feel free to re-consult if needed. Thank you.
--- NOTE | 2024-01-01 15:09 | Magnetic Resonance Report ---
MR foot LT wo/w con HISTORY: left foot pain TECHNIQUE: Multiplanar multisequence MRI of the left forefoot was performed without contrast accordin g to standard departmental protocol. COMPARISON STUDY: Left foot radiograph 08/07/2023. Left foot MRI 05/22/2023. FINDINGS: Evidence for prior amputation of the first through third toes as well as the head of the fi rst metatarsal. Small focus of marrow edema at the distal residual first metatarsal has improved. No additional areas of abnormal marrow signal or bony destructive changes to suggest an osteomyelitis. M inimal fluid surrounding the head of the third metatarsal. Thickening and abnormal signal within the flexor hallucis longus tendon remains unchanged. This likely due to the postoperative change. No acut e fracture or dislocation within the residual forefoot. No loculated fluid collections to suggest an abscess. IMPRESSION: 1. 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 2. A focus of marrow edema at the distal residual first metatarsal has improved. This suggests resolv ing postoperative change. 3. Otherwise, no areas of abnormal marrow signal or bony destructive changes within the residual bone s of the left forefoot to suggest an osteomyelitis. 4. Thickening and increased signal within the flexor hallucis longus tendon, unchanged. This is likel y due to to the postoperative change. 5. Trace fluid adjacent to the head of the third metatarsal. This may be due to residual postoperativ e change. ACT 112: Negative or not required by law. Electronically signed by: Ernst Murray M.D. 01/01/2024 3:07 PM
--- NOTE | 2024-01-01 22:10 | Hospitalist Progress Note ---
Date of Service January 01, 2024 Assessment & Plan (1) Chronic pain: Plan: Returns with severe pain-pain originally described on previous admission as being in her left mid back and radiating down bilat groins and into bilateral thighs and left leg Now, pt continues stating severe pain down entire LLE to foot. With palpable pulses in left foot. intermittent unexplained bruises to the distal left leg Previous workup over the last few weeks to months has been quite extensive to include CTA abd/pel (high grade PAD Right pelvis/RLE), CXR (negative), MRI lumbar and thoracic spine (HNP L4-5 with neuroforaminal stenosis), CT abd/pel x 2 (nothing acute, some mild sigmoid colon thickening and constipation, debris in stomach), Arterial Doppler LLE, left femur MRI (moderate left knee effusion) Seen by Vascular Medicine both Dr Lin and Dr Fuentes,. who does not think any intervention warranted to LLE that would help pain from vascular standpoint increased oxycontin to 45 bid, patient did not take on 12/22 but agrees to take on 12/23 decadron in case this is from HNP L3-4, stopping Decadron 12/23 Continue frequency of IV Dilaudid to 0.5mg IV q4h (from q3h) Return to oxycodone 15 mg every 6 as needed Continue tizanidine Continue increased dose of Cymbalta now 60 mg Scheduling Tylenol 1000 3 times daily Tegretol for adjunctive pain control, increased dose 12/22/23 0.1 mg of clonidine in the a.m. of 12/19, also for pain and bp control Dexamethasone 2 doses IV, one dose po offered lidoerm patch, pt states back is not issue Attempt improved sleep with trazodone at bedtime additional dose 12/19, does not wish for any additional at this time Patient feels her pain is now in poor control we will see if pain management will be discussed with her on 12/25 and she now more open to consider their intervention Reached out to pain management on 12/25 may be hyperalgesia syndrome from frequent opioid use. Summary of this past week: On 12/26, patient appears to be doing better, however she continues to require IV dilaudid. On 12/27 Patient with intermittent fever. low grade temp of 37.7 however patient is on tylenol. Patient does have a slight bump on her barbosa. CRP is elevated. On 12/28 Patient had no fever, vials stable, doppler u/s negative for dvt on leg. CRP is improving as well. Not on antibiotics CT scan showed inflamation of her subcutaneous tissue, but clinically does not apear vanessa cellulitits. On 12/29 Reviewed her pain medicine. Patient has not been taking oxycontin 45 mg in the evening. increasec dilaudid to q3h temporarily. Advised to take oxycontine in the evening. Leg ecchymosis as it is resolving. On 12/30 Patient continues to complain of pain. US arterial doppler which was also benign, Inflammatory markers decreasing. On 12/31 reviewed MRI of her foot this was negative. (2) Leukocytosis: Plan: Suspected stress reaction or steriod demargination She almost always has a WBC count of 11-12k through the years Blood cxs negative last admission, no signs of infection throughout entire body on all imaging and on exam. No fevers Downward trend of inflammatory markers over the last 1 month No acute infection suspected at this point in time (3) Type 2 diabetes mellitus: Plan: Patient's home regimen held on admission Hgb A1c 7.1 11/2023 Continue BSG checks, sliding-scale insulin, hypoglycemic protocol pharmacy consult placed Gastroparesis Recurrent episodes of N/V related to gastroparesis and opioid-induced constipation No acute pathology on CT, other than possible constipation and debris in stomach on recent CTA abd/pel from gastroparesis Restart Relistor adding Senokot having bowel movement also This was not approved as an outpatient. Continue Zofran and Compazine as needed (4) HTN (hypertension): Plan: BPs controlled Continue her, lisinopril reduced dose and continue metoprolol,and Hydralazine 25mg TID added clonidine on 12/19 (5) Depression: Plan: Continue duloxetine 60mg PO daily Xanax is ordered as needed but she says po benzos do not work for her-must be IV sleep deprivation will give one dose trazadone hs, prn (6) PAD (peripheral artery disease): Plan: Continue on aspirin and Plavix. On CT :stenosis of the right superficial femoral artery 80%, stenosis of the right external iliac artery 75%, osteoarthrosis of the right common iliac artery 50%. No significant change from previously. Vascular Med consult appreciated Consult Vascular Surgery for PAD opinion, no intervention needed Plan DVT prophylaxis-on Lovenox Admission and Anticipated Discharge Date Admission Date: December 16, 2023 Subjective Patient reports she is concerned that she is going to lose her leg. She states her pedal pulses are palpable. Review of Systems Review of Systems: All systems reviewed & are unremarkable except as noted in HPI & below Physical Exam Physical Exam: Patient is in moderate distress, no longer sobbing but concerned. her left leg appears to have ecchymosis on her medial ankle. Foot is warmer, pedal pulses palpated. Patient is able to plantar flex and dosi flex her foot and move her toes. Results & Data Results & Data Vital Signs (Past 12 Hours) Vital Signs Temp Pulse Resp BP Pulse Ox O2 Del Method 01/01/24 20:43 36.7 C 78 18 163/70 H 96 Room Air 01/01/24 15:19 36.9 C 69 16 102/60 95 Room Air PG Care Time/CCT Total # of Minutes Spent Total Time Spent with Patient: Total time spent is greater than 50% in coordination of care (as documented) at patient's floor/unit and/or counseling patient: Coding Level of Care Code 69554 SUB INP/OBS CARE 2/35MIN Diagnoses Chronic pain G89.29 Chronic pain type: other chronic pain Leukocytosis D72.829 Leukocytosis type: unspecified Type 2 diabetes mellitus E11.69; Z79.4 Diabetes mellitus complication status: with other specified complication Diabetes mellitus terminal superintendent insulin use: with terminal superintendent use HTN (hypertension) I10 Depression F32.9 PAD (peripheral artery disease) I73.9 (1) Chronic pain Chronic pain type: other chronic pain Qualified Code(s): G89.29 - Other chronic pain (2) Leukocytosis Leukocytosis type: unspecified Qualified Code(s): D72.829 - Elevated white blood cell count, unspecified (3) Type 2 diabetes mellitus Diabetes mellitus complication status: with other specified complication Diabetes mellitus skilled nursing insulin use: with terminal superintendent use Qualified Code(s): E11.69 - Type 2 diabetes mellitus with other specified complication; Z79.4 - supervisor intermediates (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
--- NOTE | 2024-01-02 08:23 | Hospitalist Progress Note ---
Date of Service January 02, 2024 Assessment & Plan (1) Chronic pain: Plan: Returns with severe pain-pain originally described on previous admission as being in her left mid back and radiating down bilat groins and into bilateral thighs and left leg Now, pt continues stating severe pain down entire LLE to foot. With palpable pulses in left foot. intermittent unexplained bruises to the distal left leg Previous workup over the last few weeks to months has been quite extensive to include CTA abd/pel (high grade PAD Right pelvis/RLE), CXR (negative), MRI lumbar and thoracic spine (HNP L4-5 with neuroforaminal stenosis), CT abd/pel x 2 (nothing acute, some mild sigmoid colon thickening and constipation, debris in stomach), Arterial Doppler LLE, left femur MRI (moderate left knee effusion) Seen by Vascular Medicine both Dr Lin and Dr Fuentes,. who does not think any intervention warranted to LLE that would help pain from vascular standpoint increased oxycontin to 45 bid, patient did not take on 12/22 but agrees to take on 12/23 decadron in case this is from HNP L3-4, stopping Decadron 12/23 Continue frequency of IV Dilaudid to 0.5mg IV q4h (from q3h) Return to oxycodone 15 mg every 6 as needed Continue tizanidine Continue increased dose of Cymbalta now 60 mg Scheduling Tylenol 1000 3 times daily Tegretol for adjunctive pain control, increased dose 12/22/23 0.1 mg of clonidine in the a.m. of 12/19, also for pain and bp control Dexamethasone 2 doses IV, one dose po offered lidoerm patch, pt states back is not issue Attempt improved sleep with trazodone at bedtime additional dose 12/19, does not wish for any additional at this time Patient feels her pain is now in poor control we will see if pain management will be discussed with her on 12/25 and she now more open to consider their intervention Reached out to pain management on 12/25 may be hyperalgesia syndrome from frequent opioid use. US arterial doppler which was also benign, MRI of her foot this was negative. (2) Leukocytosis: Plan: Suspected stress reaction or steriod demargination She almost always has a WBC count of 11-12k through the years Blood cxs negative last admission, no signs of infection throughout entire body on all imaging and on exam. No fevers Downward trend of inflammatory markers over the last 1 month No acute infection suspected at this point in time (3) Type 2 diabetes mellitus: Plan: Patient's home regimen held on admission Hgb A1c 7.1 11/2023 Continue BSG checks, sliding-scale insulin, hypoglycemic protocol pharmacy consult placed Gastroparesis Recurrent episodes of N/V related to gastroparesis and opioid-induced constipation No acute pathology on CT, other than possible constipation and debris in stomach on recent CTA abd/pel from gastroparesis Restart Relistor adding Senokot having bowel movement also This was not approved as an outpatient. Continue Zofran and Compazine as needed (4) HTN (hypertension): Plan: BPs controlled Continue her, lisinopril reduced dose and continue metoprolol,and Hydralazine 25mg TID added clonidine on 12/19 (5) Depression: Plan: Continue duloxetine 60mg PO daily Xanax is ordered as needed but she says po benzos do not work for her-must be IV sleep deprivation will give one dose trazadone hs, prn (6) PAD (peripheral artery disease): Plan: Continue on aspirin and Plavix. On CT :stenosis of the right superficial femoral artery 80%, stenosis of the right external iliac artery 75%, osteoarthrosis of the right common iliac artery 50%. No significant change from previously. Vascular Med consult appreciated Consult Vascular Surgery for PAD opinion, no intervention needed Plan DVT prophylaxis-on Lovenox Admission and Anticipated Discharge Date Admission Date: December 16, 2023 Results & Data Results & Data Vital Signs (Past 12 Hours) Vital Signs Temp Pulse Resp BP Pulse Ox O2 Del Method 01/02/24 07:44 98.4 F 79 16 163/75 H 93 Room Air 01/01/24 22:27 98.1 F 82 18 102/53 L 93 Room Air 01/01/24 20:43 98.1 F 78 18 163/70 H 96 Room Air PG Care Time/CCT Total # of Minutes Spent Total Time Spent with Patient: Total time spent is greater than 50% in coordination of care (as documented) at patient's floor/unit and/or counseling patient: Coding Diagnoses Chronic pain G89.29 Chronic pain type: other chronic pain Leukocytosis D72.829 Leukocytosis type: unspecified Type 2 diabetes mellitus E11.69; Z79.4 Diabetes mellitus complication status: with other specified complication Diabetes mellitus termite control representative insulin use: with termite control representative use HTN (hypertension) I10 Depression F32.9 PAD (peripheral artery disease) I73.9 (1) Chronic pain Chronic pain type: other chronic pain Qualified Code(s): G89.29 - Other chronic pain (2) Leukocytosis Leukocytosis type: unspecified Qualified Code(s): D72.829 - Elevated white blood cell count, unspecified (3) Type 2 diabetes mellitus Diabetes mellitus complication status: with other specified complication Diabetes mellitus [facility] insulin use: with [facility] use Qualified Code(s): E11.69 - Type 2 diabetes mellitus with other specified complication; Z79.4 - terminal supervisor (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
[2024-01-02] MEDS: KETOROLAC 30 MG/ML VIAL IV ONE (10:58)
--- NOTE | 2024-01-02 18:42 | Discharge Summary ---
Discharge Summary Date of Service January 02, 2024 Notes For Next Care Provider Pt has had big challenges controlling pain in remaining leg, is fearful for foot pain and tenderness, multiple studies and consultants did evaluate, no immediately treatable pathology identified. pt had difficulty interacting with pain management, concern for opiate hyperalgesia Admission HPI Per Admitting Provider The patient is a 58-year-old woman with a pmhx of diabetes, chronic pain / opioid dependence, depression, hypertension, PAD, gastroparesis and complicated history of right lower extremity osteomyelitis who presents emergency department for ongoing flare of her chronic abdominal pain with nausea and vomiting. Reported and pain in her extremities after being admitted to this facility from 12/02-12/12 for similar symptoms where she had extensive testing. She states that the pain is unbearable and in her groin and abdomen. States that the oxycodone did not really help. She also states that she does not feel constipated and has been going to the bathroom almost every hour. Principal Dx & Hospital Course #1 = Principal Diagnosis (1) Chronic pain: Returns with severe pain-pain originally described on previous admission as being in her left mid back and radiating down bilat groins and into bilateral thighs and left leg Now, pt continues stating severe pain down entire LLE to foot. With palpable pulses in left foot. intermittent unexplained bruises to the distal left leg Previous workup over the last few weeks to months has been quite extensive to include CTA abd/pel (high grade PAD Right pelvis/RLE), CXR (negative), MRI lumbar and thoracic spine (HNP L4-5 with neuroforaminal stenosis), CT abd/pel x 2 (nothing acute, some mild sigmoid colon thickening and constipation, debris in stomach), Arterial Doppler LLE, left femur MRI (moderate left knee effusion) Seen by Vascular Medicine both Dr Lin and Dr Fuentes,. who does not think any intervention warranted to LLE that would help pain from vascular standpoint increased oxycontin to 45 bid, patient did not take on 12/22 but agrees to take on 12/23 decadron in case this is from HNP L3-4, stopping Decadron 12/23 Continue frequency of IV Dilaudid to 0.5mg IV q4h (from q3h) Return to oxycodone 15 mg every 6 as needed Continue tizanidine Continue increased dose of Cymbalta now 60 mg Scheduling Tylenol 1000 3 times daily Tegretol for adjunctive pain control, increased dose 12/22/23 0.1 mg of clonidine in the a.m. of 12/19, also for pain and bp control Dexamethasone 2 doses IV, one dose po offered lidoerm patch, pt states back is not issue Attempt improved sleep with trazodone at bedtime additional dose 12/19, does not wish for any additional at this time Patient feels her pain is now in poor control we will see if pain management will be discussed with her on 12/25 and she now more open to consider their intervention, pain management however is concerned about opiate hyperalgesia and is not considering intervention US arterial doppler which was also benign, MRI of her foot this was negative. (2) Leukocytosis: Suspected stress reaction or steriod demargination She almost always has a WBC count of 11-12k through the years Blood cxs negative last admission, no signs of infection throughout entire body on all imaging and on exam. No fevers Downward trend of inflammatory markers over the last 1 month No acute infection suspected at this point in time (3) Type 2 diabetes mellitus: Patient's home regimen resumed at discharge, no additional steroids at discharge Hgb A1c 7.1 11/2023 Gastroparesis Recurrent episodes of N/V related to gastroparesis and opioid-induced constipation No acute pathology on CT, other than possible constipation and debris in stomach on recent CTA abd/pel from gastroparesis Restart Relistor adding Senokot having bowel movement also try for outpt amitiza generic to help opiate induced constipation discusses sliding scale to assure bowel movement s Continue Zofran and Compazine as needed (4) HTN (hypertension): BPs controlled Continue her, lisinopril reduced dose and continue metoprolol,and Hydralazine 25mg TID added clonidine on 12/19 (5) Depression: Continue duloxetine 60mg PO daily Xanax is ordered as needed but she says po benzos do not work for her-must be IV sleep deprivation will give one dose trazadone hs, prn (6) PAD (peripheral artery disease): Continue on aspirin and Plavix. On CT :stenosis of the right superficial femoral artery 80%, stenosis of the right external iliac artery 75%, osteoarthrosis of the right common iliac artery 50%. No significant change from previously. Vascular Med consult appreciated Consult Vascular Surgery for PAD opinion, no intervention needed Discharge Exam pt is in her usual state, some pain , tearful but wants to go home Updated Medication List Medication Instructions Recorded Confirmed Type ropinirole 2 mg tablet 4 mg PO HS 10/19/20 12/16/23 History insulin lispro 100 unit/mL 5 unit subcut TIDM 03/08/22 12/16/23 History subcutaneous pen zolpidem 10 mg tablet 10 mg PO HS PRN Sleep 03/08/22 12/16/23 History insulin glargine 100 unit/mL (3 10 unit subcut HS 10/17/22 12/16/23 History mL) subcutaneous pen (Lantus Solostar U-100 Insulin) albuterol sulfate 90 mcg/actuation 2 puff inhalation QID PRN 05/08/23 12/16/23 History aerosol inhaler Shortness Of Breath Or Wheezing alprazolam 1 mg tablet 1 mg PO TID PRN Anxiety 05/08/23 12/16/23 History docusate sodium 100 mg capsule 100 mg PO BID 05/08/23 12/16/23 History metoprolol succinate 50 mg 50 mg PO QAM 05/08/23 12/16/23 History tablet,extended release 24 hr (Toprol XL) pantoprazole 40 mg tablet,delayed 40 mg PO BID 05/08/23 12/16/23 History release clopidogrel 75 mg tablet (Plavix) 75 mg PO DAILY #30 tabs 05/10/23 12/16/23 Rx prochlorperazine maleate 5 mg 5 mg PO TID PRN Nausea 06/13/23 12/16/23 History tablet aspirin 81 mg tablet,delayed 81 mg PO DAILY 09/19/23 12/16/23 History release hydralazine 25 mg tablet 25 mg PO TID 09/19/23 12/16/23 History nifedipine 60 mg tablet,extended 120 mg PO DAILY 09/19/23 12/16/23 History release 24 hr acetaminophen 325 mg tablet 650 mg (2 x 325 mg) PO QID #120 12/13/23 12/16/23 Rx (Athenol) tabs duloxetine 60 mg capsule,delayed 60 mg PO DAILY #30 caps 12/13/23 12/16/23 Rx release lidocaine 5 % topical patch 1 patch transdermal QA #14 ea 12/13/23 12/16/23 Rx tizanidine 4 mg tablet 4 mg PO BID #60 tabs 12/13/23 12/16/23 Rx acetaminophen 500 mg tablet 1,000 mg (2 x 500 mg) PO TID #90 01/02/24 Rx (Tylenol Extra Strength) tabs carbamazepine 200 mg 200 mg PO BID #60 tabs 01/02/24 Rx tablet,extended release,12 hr clonidine HCl 0.1 mg tablet 0.1 mg PO QAM #30 tabs 01/02/24 Rx lisinopril 5 mg tablet (Zestril) 5 mg PO DAILY #30 tabs 01/02/24 Rx lubiprostone 8 mcg capsule 8 mcg PO BID #60 caps 01/02/24 Rx (Amitiza) oxycodone 15 mg tablet 15 mg PO BID #60 tabs 01/02/24 Rx oxycodone 30 mg tablet 30 mg PO BID #60 tabs 01/02/24 Rx Hospital Stay Data Consultations 12/16/23 20:42 ED Decision to Admit Stat 12/17/23 03:00 Consult Pain Management Routine 12/18/23 16:26 Consult Vascular Surgery Routine Diagnostic Imagining Performed 12/16/23 19:17 CT angio abdomen pelvis w con Stat 12/23/23 07:19 US arterial duplex LE LT Routine 12/25/23 01:41 US venous duplex arm [US venous doppler UE LT] Urgent 12/29/23 09:18 US venous doppler LE LT Routine 12/29/23 20:54 CT leg [CT tib/fib LT wo/w con] Routine 12/30/23 10:47 US arterial duplex LE LT Urgent 01/01/24 11:08 MR foot LT wo/w con Urgent Pending Results Patient Have Any Pending Studies at Discharge: No Discharge Instructions Given to Patient (Per Discharging Provider) please follow up with Dr Vernon as soon as able please adjust medication for your constipation so that you at least have a bowel movement every day or every other day you may add over the counter medications such as miralax, senna or generic to help your bowels move Total Time Total Time Spent Total Time Spent (In Minutes): greater than 30 minutes were required to create discharge summary Coding Level of Care Code 27283 INP/OBS DISCH >30 MIN Diagnoses Chronic pain G89.29 Chronic pain type: other chronic pain Leukocytosis D72.829 Leukocytosis type: unspecified Type 2 diabetes mellitus E11.69; Z79.4 Diabetes mellitus complication status: with other specified complication Diabetes mellitus termite technician insulin use: with termite technician use HTN (hypertension) I10 Depression F32.9 PAD (peripheral artery disease) I73.9
== END 2024-01-02 15:35 | disposition home or self-care (01) | DRG 74 ==
LOC: ED 18:29 → SUATTDRO 22:01 → 3N 22:01

== ENCOUNTER 2024-02-10 18:39 | Inpatient (IN) ==
--- NOTE | 2024-02-10 19:43 | Emergency Department Note ---
Impression & Plan Intractable neuropathic pain of left lower extremity, Hyponatremia ED Provider Note NAME: EILEEN ESCOBAR AGE: 58 SEX: F : 1965 ARRIVES VIA: Ambulance INFORMANT: Patient, triage note ED PROVIDER(S): Anish Lowery MD CHIEF COMPLAINT: Left leg pain MEDICAL DECISION MAKING: Patient presents due to concern for left lower extremity pain. The patient recently unable to obtain certain prescription pain medications secondary to insurance issues. IV was established and blood work was obtained. No obvious deformity of the left lower extremity good pedal pulse and the patient has had significant imaging done recently there is no significant swelling noted do not believe the patient has DVT. Patient has good pedal pulse do not think the patient requires arterial Dopplers and no signs of obvious infection or deformity. Bloodwork shows a white count of 17 with a normal H&H and platelet count. The patient denies any infectious symptoms. Prerenal azotemia noted. LFTs are otherwise unremarkable. Mild hyponatremia. The patient did receive IV Dilaudid initially. Upon subsequent reassessment was still having some recurrence of pain and the patient was trialed with oxycodone and Zofran. Upon subsequent reassessment was still having pain patient was ordered another IV Dilaudid 1 mg. I did speak with the on-call hospitalist Dr. Brown and the patient was admitted to the medicine service. Discussion w/ other healthcare providers: Dr. Castillo inpatient medicine service Prior /Outside records reviewed: I reviewed a discharge summary from January 02, [address] Clemons. Patient reportedly had had challenges controlling pain in the remaining leg fearful foot pain and tenderness multiple studies and consultants did evaluate no immediately treatable pathology identified. Patient was seen for chronic pain at that time. Patient did have a ultrasound arterial Doppler which is benign and the MRI of the patient's foot was negative. Patient was receiving IV Dilaudid Cymbalta Tylenol clonidine dexamethasone Lidoderm tizanidine while inpatient. Differential diagnosis: Neuropathy, radiculopathy, allodynia, DVT, limb ischemia, fracture, sprain, strain, soft tissue infection among others were considered. Diagnostics, as interpreted by me: ECG: Mari rate of 81, normal intervals, normal axis no ST elevations Q-wave in V2. Cardiac monitoring: An order was placed for continuous cardiac monitoring. The monitor shows a rate of 82 with sinus rhythm. Patient was placed on pulse oximetry Medical decision rules: None Imaging studies: None HPI: Patient presents due to concern for left leg and groin pain. Patient feels as though her extremity is slightly cold. The patient states that she has been having the symptoms since 2 Fridays ago. The patient did have an an admission at the end of December and was having similar symptoms at that time. Patient denies any chest pains or shortness of breath. The patient does use a walker as well as a wheelchair in order to get around. The patient denies any injury trauma or some sort of issue when trying to transfer. Patient denies any falls. The patient has been taking Cymbalta and gabapentin as well as Tylenol. The patient reports that her oxycodone was on a provide insurance and was transitioned to morphine although has a morphine allergy and was out of bed to take this. Patient was discussed with her primary care physician with regard to her symptoms and was referred here for further evaluation and treatment as well as a possible follow-up this week. No recent travel. Patient denies any swelling. PAST MEDICAL HISTORY: See Below PAST SURGICAL HISTORY: See Below SOCIAL HISTORY: See Below HOME MEDICATIONS: See Below ALLERGIES: See Below VITALS: See Below PHYSICAL EXAMINATION: GENERAL: NAD, non-toxic. EYE EXAM: Normal conjunctiva. PERRL, no anisocoria and EOM's grossly intact w/o pain. OROPHARYNX: Moist mucus membranes, grossly normal dentition. NECK: Trachea midline, no stridor. LUNGS: Clear to auscultation. Normal chest wall mechanics. HEART: NSR, no MRG. ABDOMEN: Abdomen soft, non-tender, no masses, no rebound or guarding. BACK: No CVA TTP. SKIN: No rashes and no bruising. UPPER EXTREMITIES: Upper extremities are grossly normal. LOWER EXTREMITIES: Right BKA, left lower extremity missing several toes. No significant swelling good pedal pulse. Compartments are soft in the left lower extremity. No obvious temperature difference. No crepitus and compartments are soft. NEURO EXAM: A&O x3, cranial nerves II-XII grossly intact, normal speech, moves all 4 extremities. 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 (Acute) Acute dehydration (Acute) Type 2 diabetes mellitus (Acute) Nausea & vomiting (Acute) Abdominal pain (Acute) Acute dehydration (Acute) Elevated troponin (Acute) Diffuse abdominal pain (Acute) Uncontrolled hypertension Acute herpes zoster neuropathy (Acute) Infection due to Rivas catheter HTN (hypertension) MRSA bacteremia Ulcer of second toe of left foot (Acute) Leukocytosis (Acute) Elevated lactic acid level (Acute) Abscess of right axilla Axillary hidradenitis suppurativa (Acute) Vomiting (Acute) Headache (Acute) Constipation (Acute) Diarrhea (Acute) Internal jugular (IJ) vein thromboembolism, acute Amputation of left great toe Anemia Vitamin D deficiency Shoulder pain B12 deficiency Poor venous access (Acute) Acute leg pain (Acute) Costochondritis Globus pharyngeus Somatic dysfunction of thoracic region Chronic pain syndrome Acute adjustment disorder with mixed anxiety and depressed mood Insomnia Diarrhea Scapular dyskinesis Injury of left rotator cuff Numbness of upper extremity Status post spinal surgery Gastroparesis (Acute) Vitamin D deficiency Esophagitis History of tobacco use Toe ulcer, right MRSA (methicillin resistant staph aureus) culture positive Rash and nonspecific skin eruption Stye Acute hyperglycemia (Acute) Hyperglycemia due to type 2 diabetes mellitus (Acute) Tenosynovitis of ankle Surgical wound, non healing (Acute) Ankle ulcer due to DM Encounter for pre-operative examination Anxiety Diarrhea Emphysema lung Cellulitis of left foot (Acute) Diabetic foot ulcer (Acute) Acute leg pain (Acute) Iron deficiency anemia History of amputation of great toe Diabetic peripheral neuropathy Depression Nonobstructive atherosclerosis of coronary artery Chronic back pain Medical History PAD (peripheral artery disease) Hypertension Groin pain Foot pain Costochondritis Infection of left great toe due to methicillin resistant Staphylococcus aureus (MRSA) Diastolic CHF COVID-19 Osteomyelitis of great toe of left foot Chronic pain syndrome Opiate dependence Opiate abuse, continuous Acidosis, lactic Acute dehydration Gastroenteritis Sepsis Shortness of breath Opioid dependence Iron deficiency anemia Hypomagnesemia Diabetic peripheral neuropathy Insomnia 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 No issues per anesthesia postop progress note. HTN (hypertension) Anemia Hyponatremia Cellulitis Peripheral neuropathy Benzodiazepine withdrawal Right second toe ulcer Diabetes mellitus type 2, uncontrolled Hyperlipidemia Seizures Gastritis Depression Chronic back pain Nonobstructive atherosclerosis of coronary artery Numbness of lower extremity Hypertriglyceridemia CAD (coronary artery disease) History of tobacco use Benzodiazepine dependence Restless leg syndrome Diabetic neuropathy Abdominal pain Gastroparesis Esophagitis determined by endoscopy GIB (gastrointestinal bleeding) Insulin dependent diabetes mellitus DM2 (diabetes mellitus, type 2) IDDM, A1c 07/2021-11% Surgical History History of amputation of great toe History of right below knee amputation (12/22/21) Right Below Knee Amputation(Right) - Davon Good MD, FACS History of lumbar surgery History of esophagogastroduodenoscopy (EGD) Family History Mother , age 63 Myocardial infarction Father , age 68 or 69 Myocardial infarction Brother S/P CABG (coronary artery bypass graft) Sister Myocardial infarction x 3; she is 57yo Social History Smoking Status: Former smoker Tobacco Type: Cigarettes packs per day: 0.5; Cigarettes Per Day: 20; Second Hand Exposure: No; Do You Dip or Chew Tobacco: No; Hx Alcohol Use: No Hx Substance Use: Yes Prescribed Medications: Marijuana Last Used Substance: Days (ago) Last Used Substance Other:: Medical marijuana Substance Use Type Other:: Medical marijuana Preferred Language: Welsh Communication Ability: Effective Visual Impairment: No Limitations Hearing Ability: Normal Doctor Of [place] Required: No Beliefs That Will Affect Care: None marital status: Current Living Situation: Spouse current occupational status: unemployed 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 other: raising a grandchild as well; lives in [place] Feels Safe at Home: Yes Diet: diabetic and low salt during the past year weight has: remained stable Assistive Devices: Walker and Wheelchair Allergies Allergies Allergy/AdvReac Type Severity Reaction Status Date / Time morphine Allergy Severe blisters Verified 02/10/24 22:40 in mouth Sulfa (Sulfonamide Allergy Severe rash/swelli Verified 02/10/24 22:40 Antibiotics) ng amoxicillin [From Augmentin] Allergy Intermediate itching/power Verified 02/10/24 22:40 h ceftriaxone [From Rocephin] Allergy Intermediate Hives Verified 02/10/24 22:40 clavulanic acid Allergy Intermediate itching/power Verified 02/10/24 22:40 [From Augmentin] h erythromycin base Allergy Intermediate Hives Verified 02/10/24 22:40 vancomycin Allergy Intermediate YULIYA Verified 02/10/24 22:40 SYNDROME---CAN TAKE IF VERY SLOW DRIP. adhesive AdvReac Intermediate DERMABOND Verified 02/10/24 22:40 excoriates skin gabapentin AdvReac Intermediate Nausea Verified 02/10/24 22:40 iron [From Venofer] AdvReac Intermediate Hypertensio Verified 02/10/24 22:40 n Home Meds Home Medications Medication Instructions Recorded Confirmed ropinirole 2 mg tablet 4 mg PO HS 10/19/20 02/10/24 insulin lispro 100 unit/mL 5 unit subcut TIDM 03/08/22 02/10/24 subcutaneous pen zolpidem 10 mg tablet 10 mg PO HS PRN Sleep 03/08/22 02/10/24 insulin glargine 100 unit/mL (3 10 unit subcut HS 10/17/22 02/10/24 mL) subcutaneous pen (Lantus Solostar U-100 Insulin) albuterol sulfate 90 mcg/actuation 2 puff inhalation QID PRN 05/08/23 02/10/24 aerosol inhaler Shortness Of Breath Or Wheezing alprazolam 1 mg tablet 1 mg PO TID PRN Anxiety 05/08/23 02/10/24 docusate sodium 100 mg capsule 100 mg PO BID 05/08/23 02/10/24 metoprolol succinate 50 mg 50 mg PO QAM 05/08/23 02/10/24 tablet,extended release 24 hr (Toprol XL) pantoprazole 40 mg tablet,delayed 40 mg PO BID 05/08/23 02/10/24 release prochlorperazine maleate 5 mg 5 mg PO TID PRN Nausea 06/13/23 02/10/24 tablet aspirin 81 mg tablet,delayed 81 mg PO DAILY 09/19/23 02/10/24 release hydralazine 25 mg tablet 25 mg PO TID 09/19/23 02/10/24 nifedipine 60 mg tablet,extended 120 mg PO DAILY 09/19/23 02/10/24 release 24 hr Previous Rx's Medication Instructions Recorded clopidogrel 75 mg tablet (Plavix) 75 mg PO DAILY #30 tabs 05/10/23 acetaminophen 325 mg tablet 650 mg (2 x 325 mg) PO QID #120 12/13/23 (Athenol) tabs duloxetine 60 mg capsule,delayed 60 mg PO DAILY #30 caps 12/13/23 release lidocaine 5 % topical patch 1 patch transdermal QAM #14 ea 12/13/23 tizanidine 4 mg tablet 4 mg PO BID #60 tabs 12/13/23 acetaminophen 500 mg tablet 1,000 mg (2 x 500 mg) PO TID #90 01/02/24 (Tylenol Extra Strength) tabs carbamazepine 200 mg 200 mg PO BID #60 tabs 01/02/24 tablet,extended release,12 hr clonidine HCl 0.1 mg tablet 0.1 mg PO QAM #30 tabs 01/02/24 lisinopril 5 mg tablet (Zestril) 5 mg PO DAILY #30 tabs 01/02/24 lubiprostone 8 mcg capsule 8 mcg PO BID #60 caps 01/02/24 (Amitiza) Results & Data (ED) Vital Signs Vital Signs - 24 hr 02/10/24 18:46 02/10/24 18:46 02/10/24 18:51 Temperature 37.2 C Temperature Source Oral Pulse Rate 90 90 89 Pulse Rate [Apical] Pulse Rate from SpO2 Sensor 90 Respiratory Rate 22 16 Respiratory Effort / Characteristics Non-Labored Spontaneous Respiratory Depth Normal Respiratory Pattern Regular Blood Pressure 143/75 H Blood Pressure [Right Arm] Blood Pressure Mean 97 Blood Pressure Mean [Right Arm] Pulse Oximetry 96 92 Oxygen Delivery Method Room Air Oxygen Flow Rate Sepsis Recent Fever Within 48 Hours No Sepsis New/Unexplained Change in Mental Status N/A Sepsis Action Taken by Nursing No Action Required Oxygen Flow Rate - Titration Fraction of Inspired Oxygen - Titration 02/10/24 19:09 02/10/24 19:57 02/10/24 20:00 Temperature Temperature Source Pulse Rate 82 80 85 Pulse Rate [Apical] Pulse Rate from SpO2 Sensor Respiratory Rate 14 20 Respiratory Effort / Characteristics Respiratory Depth Respiratory Pattern Blood Pressure Blood Pressure [Right Arm] Blood Pressure Mean Blood Pressure Mean [Right Arm] Pulse Oximetry Oxygen Delivery Method Oxygen Flow Rate Sepsis Recent Fever Within 48 Hours Sepsis New/Unexplained Change in Mental Status Sepsis Action Taken by Nursing Oxygen Flow Rate - Titration Fraction of Inspired Oxygen - Titration 02/10/24 20:16 02/10/24 20:36 02/10/24 20:43 Temperature Temperature Source Pulse Rate 71 Pulse Rate [Apical] Pulse Rate from SpO2 Sensor 71 Respiratory Rate 16 Respiratory Effort / Characteristics Respiratory Depth Respiratory Pattern Blood Pressure Blood Pressure [Right Arm] Blood Pressure Mean Blood Pressure Mean [Right Arm] Pulse Oximetry 94 93 88 L Oxygen Delivery Method Room Air Room Air Room Air Oxygen Flow Rate 0 Sepsis Recent Fever Within 48 Hours Sepsis New/Unexplained Change in Mental Status Sepsis Action Taken by Nursing Oxygen Flow Rate - Titration 2 Fraction of Inspired Oxygen - Titration 92 02/10/24 22:00 02/10/24 22:47 02/10/24 23:00 Temperature Temperature Source Pulse Rate 80 Pulse Rate [Apical] 85 73 Pulse Rate from SpO2 Sensor Respiratory Rate 16 12 Respiratory Effort / Characteristics Non-Labored Spontaneous Non-Labored Respiratory Depth Normal Normal Respiratory Pattern Regular Blood Pressure Blood Pressure [Right Arm] 157/93 H 203/99 H Blood Pressure Mean Blood Pressure Mean [Right Arm] 114 133 Pulse Oximetry 97 97 Oxygen Delivery Method Nasal Cannula Room Air Oxygen Flow Rate 2 Sepsis Recent Fever Within 48 Hours Sepsis New/Unexplained Change in Mental Status Sepsis Action Taken by Nursing Oxygen Flow Rate - Titration Fraction of Inspired Oxygen - Titration 02/10/24 23:30 02/11/24 00:00 Temperature Temperature Source Pulse Rate Pulse Rate [Apical] 74 72 Pulse Rate from SpO2 Sensor Respiratory Rate 14 14 Respiratory Effort / Characteristics Non-Labored Non-Labored Respiratory Depth Normal Normal Respiratory Pattern Regular Regular Blood Pressure Blood Pressure [Right Arm] 185/89 H 155/78 H Blood Pressure Mean Blood Pressure Mean [Right Arm] 121 103 Pulse Oximetry 91 95 Oxygen Delivery Method Nasal Cannula Nasal Cannula Oxygen Flow Rate 1 1 Sepsis Recent Fever Within 48 Hours Sepsis New/Unexplained Change in Mental Status Sepsis Action Taken by Nursing Oxygen Flow Rate - Titration Fraction of Inspired Oxygen - Titration Laboratory Data 02/10/24 20:25 02/10/24 20:25 Lab Results 02/10/24 Range/Units 20:25 WBC 17.61 H (4.8-10.8) K/ul RBC 4.60 (4.20-5.40) M/uL Hgb 12.3 (12.0-16.0) g/dl Hct 38.1 (37.0-47.0) % MCV 82.8 (80.0-100.0) fL MCH 26.7 (25.0-34.0) pg MCHC 32.3 (32.0-36.0) g/dL RDW Std Deviation 41.8 (36.4-46.3) fL RDW Coeff of Maria [place] 13.8 (11.5-14.5) % Plt Count 322 (130-400) K/uL MPV 9.8 (9.4-12.4) fL Immature Gran % (Auto) 0.3 % Neut % (Auto) 67.0 % Lymph % (Auto) 21.7 % Greenlee % (Auto) 8.3 % Eos % (Auto) 2.2 % Baso % (Auto) 0.5 % Neut # (Auto) 11.79 H (1.40-6.50) K/uL Lymph # (Auto) 3.82 H (1.20-3.40) K/uL Greenlee # (Auto) 1.47 H (0.11-0.59) K/uL Eos # (Auto) 0.38 (0.00-0.50) K/uL Baso # (Auto) 0.09 (0.00-0.20) K/uL Immature Gran # (Auto) 0.06 (0.01-0.20) K/uL Sodium 134 L (136-145) mmol/L Potassium 4.3 (3.5-5.1) mmol/L Chloride 100 (98-107) mmol/L Carbon Dioxide 27 (21-32) mmol/L Anion Gap 7 (3-11) BUN 13 (6-23) mg/dl Creatinine 0.47 L (0.6-1.2) mg/dl Est Cr Clr Drug Dosing 111.2 ml/min Est GFR ( Amer) 125.3 ml/min Est GFR (Non-Af Amer) 108.1 ml/min BUN/Creatinine Ratio 27.7 H (10-20) Glucose 112 H (70-99(Fasting)) mg/dl Calcium 9.7 (8.6-10.3) mg/dl Total Bilirubin 0.4 (0.2-1.0) mg/dl AST 12 L (13-39) U/L ALT 8 (7-52) U/L Alkaline Phosphatase 70 (34-104) U/L Total Protein 7.9 (6.0-8.3) gm/dl Albumin 4.9 (3.4-5.0) gm/dl Globulin 3.0 (2.5-4.0) gm/dl Albumin/Globulin Ratio 1.6 (0.9-2) Administered Medications Miscellaneous (Remove Lidoderm Patch) 1 each N/A DAILY@2100 RICKY Stop: 03/11/24 20:59 Last Admin: 02/10/24 21:01 Dose: Not Given Documented By: LAKEISHA Discontinued Medications Acetaminophen (Acetaminophen 500 Mg Tab) 1,000 mg PO NOW STA Stop: 02/10/24 20:17 Last Admin: 02/10/24 20:22 Dose: 1,000 mg Documented By: LAKEISHA Hydromorphone HCl (Hydromorphone Inj 1 Mg/Ml Syringe) 1 mg IV NOW STA Stop: 02/10/24 20:17 Last Admin: 02/10/24 20:28 Dose: 1 mg Documented By: LAKEISHA Hydromorphone HCl (Hydromorphone Inj 1 Mg/Ml Syringe) 1 mg IV NOW STA Stop: 02/10/24 23:17 Last Admin: 02/10/24 23:24 Dose: 1 mg Documented By: JAIR Sodium Chloride (Nss) 500 mls @ 999 mls/hr IV .Q31M RICKY Stop: 02/10/24 21:00 Last Infusion: 02/10/24 21:40 Dose: Infused Documented By: Admin: 02/10/24 20:29 Dose: 999 mls/hr Documented By: LAKEISHA Lidocaine (Lidocaine 5% 1 Patch) 1 patch TD NOW STA Stop: 02/10/24 20:17 Last Admin: 02/10/24 20:22 Dose: 1 patch Documented By: LAKEISHA Ondansetron HCl (Ondansetron Inj 2 Mg/Ml 2 Ml Vial) 4 mg IV NOW STA Stop: 02/10/24 21:49 Last Admin: 02/10/24 22:03 Dose: 4 mg Documented By: LAKEISHA Oxycodone HCl (Oxycodone Hcl Ir 5 Mg Tab (Immediate Release)) 5 mg PO NOW STA Stop: 02/10/24 21:49 Last Admin: 02/10/24 22:03 Dose: 5 mg Documented By: LAKEISHA Discharge Plan Visit Data Chief Complaint: Leg Injury/Pain ED Provider: Anish Lowery Discharge Problem: Intractable neuropathic pain of left lower extremity, Hyponatremia Forms Stand Alone Forms: [facility] [employer] Prescriptions Prescriptions: No Action prochlorperazine maleate 5 mg tablet 5 mg PO TID PRN (Reason: Nausea) ropinirole 2 mg Tablet 4 mg PO HS zolpidem 10 mg tablet 10 mg PO HS PRN (Reason: Sleep) Rx Instructions: do not take within 3 hours of opiod pain med insulin lispro 100 unit/mL insulin pen 5 unit SUBCUT TIDM Rx Instructions: plus sliding scale insulin glargine [Lantus Solostar U-100 Insulin] 100 unit/mL (3 mL) insulin pen 10 unit SUBCUT HS metoprolol succinate [Toprol XL] 50 mg tablet extended release 24 hr 50 mg PO QAM albuterol sulfate 90 mcg/actuation HFA aerosol inhaler 2 puff INHALATION QID PRN (Reason: Shortness Of Breath Or Wheezing) pantoprazole 40 mg tablet,delayed release (DR/EC) 40 mg PO BID docusate sodium 100 mg Capsule 100 mg PO BID alprazolam 1 mg tablet 1 mg PO TID PRN (Reason: Anxiety) clopidogrel [Plavix] 75 mg tablet 75 mg PO DAILY Qty: 30 0RF hydralazine 25 mg tablet 25 mg PO TID aspirin 81 mg Tablet,Delayed Release (Dr/Ec) 81 mg PO DAILY nifedipine 60 mg tablet extended release 24hr 120 mg PO DAILY duloxetine 60 mg Capsule,Delayed Release(Dr/Ec) 60 mg PO DAILY Qty: 30 0RF acetaminophen [Athenol] 325 mg tablet 650 mg PO QID Qty: 120 0RF tizanidine 4 mg Tablet 4 mg PO BID Qty: 60 0RF lidocaine 5 % Adhesive Patch,Medicated 1 patch transdermal QAM Qty: 14 0RF clonidine HCl 0.1 mg Tablet 0.1 mg PO QAM Qty: 30 3RF acetaminophen [Tylenol Extra Strength] 500 mg Tablet 1,000 mg PO TID Qty: 90 0RF carbamazepine 200 mg Tablet Extended Release 12 Hr 200 mg PO BID Qty: 60 3RF lisinopril [Zestril] 5 mg Tablet 5 mg PO DAILY Qty: 30 3RF lubiprostone [Amitiza] 8 mcg capsule 8 mcg PO BID Qty: 60 5RF Referrals Referrals: Vince Vernon DO [Primary Care Provider] -
[2024-02-10] MEDS: ACETAMINOPHEN 500 MG TAB PO STA (20:22)
[2024-02-10] MEDS: LIDOCAINE 5% 1 PATCH TD STA (20:22)
[2024-02-10] MEDS: HYDROmorphone INJ 1 MG/ML SYRINGE IV STA ×2 (20:28→23:24)
[2024-02-10] MEDS: SODIUM CHLORIDE 0.9% 500 ML IV SCH (20:29)
[2024-02-10 20:44] LABS: Basophils # (auto) 0.09 K/uL (0.00-0.20); Basophils % (auto) 0.5 %; Eosinophils # (auto) 0.38 K/uL (0.00-0.50); Eosinophils % (auto) 2.2 %; Hematocrit (blood only) 38.1 % (37.0-47.0); Hemoglobin 12.3 g/dl (12.0-16.0); Immature Granulocytes # (auto) 0.06 K/uL (0.01-0.20); Immature Granulocytes % (auto) 0.3 %; Lymphocytes # (auto) 3.82 K/uL (1.20-3.40); Lymphocytes % (auto) 21.7 %; Mean Corpuscular Hemoglobin 26.7 pg (25.0-34.0); Mean Corpuscular Hgb Conc 32.3 g/dL (32.0-36.0); Mean Corpuscular Volume 82.8 fL (80.0-100.0); Mean Platelet Volume 9.8 fL (9.4-12.4); Monocytes # (auto) 1.47 K/uL (0.11-0.59); Monocytes % (auto) 8.3 %; Neutrophils # (auto) 11.79 K/uL (1.40-6.50); Platelet Count 322 K/uL (130-400); RDW Coefficient of Variation 13.8 % (11.5-14.5); RDW Standard Deviation 41.8 fL (36.4-46.3); White Blood Count 17.61 K/ul (4.8-10.8)
[2024-02-10 20:54] LABS: Albumin Globulin Ratio 1.6 (0.9-2); Albumin Level 4.9 gm/dl (3.4-5.0); BUN Creatinine Ratio 27.7 (10-20); Bilirubin,Total 0.4 mg/dl (0.2-1.0); Calcium 9.7 mg/dl (8.6-10.3); Creatinine Clr Calc Pharmacy 111.2 ml/min; Est GFR (African American) 125.3 ml/min; Est GFR (Non-African American) 108.1 ml/min; Potassium 4.3 mmol/L (3.5-5.1); Total Protein 7.9 gm/dl (6.0-8.3)
[2024-02-10] MEDS: ONDANSETRON INJ 2 MG/ML 2 ML VIAL IV STA (22:03)
[2024-02-10] MEDS: oxyCODONE HCL IR 5 MG TAB (IMMEDIATE RELEASE) PO STA (22:03)
--- NOTE | 2024-02-11 01:12 | History & Physical Report ---
Date of Service February 11, 2024 Assessment & Plan (1) Intractable neuropathic pain of left lower extremity: (2) Gastroparesis: (3) PAD (peripheral artery disease): (4) Type 2 diabetes mellitus: (5) HTN (hypertension): (6) Insomnia: (7) Leukocytosis: Plan Pt is a 58 yo female with PMH of HTN, hx of MRSA infection, DM, HLD, seizures, DM, and GI bleeding presenting due to left leg pain. Acute on chronic pain - pt has extensive hx of abdominal and extremity pain; pain now is in her left lower back, left groin, and left leg; description of pt's pain most likely neuropathic in nature - admitted 12/2023 for similar concerns; had vascular evaluation where no surgical intervention indicated; per pt, she discharged on oxycontin BID but was unable to obtain this d/t her insurance- she has been using 2 tabs of oxy 7.5mg/acet 325mg q4hr (135MME) - PDMP checked; last prescription for alprazolam 1mg TID filled 01/23, last prescription for oxycodone 7.5mg/acetaminophen 325mg q4hr filled 01/23, last prescription for zolpidem 10 mg HS PRN filled 01/07 all for 30 day supplies - pain control regimen upon admission: tylenol 650mg q6hr scheduled ibuprofen 600mg q8hr scheduled carbamazepine 200mg BID tizanidine 4 mg BID cymbalta 60 mg daily will reinstitute oxycontin 45mg BID (135 MME) like last hospitalization as pt said this worked well for her but her insurance would not cover it as outpatient oxycodone 7.5mg PRN for breakthrough pain 4-01/20 dilaudid IV 1mg PRN for breakthrough pain 7-05/22 - may consider addition of steroids if pain does not improve with above regimen Work up concerning pt's chronic pain has been extensive including CTAP showing high grade PAD, arterial duplex showing arterial disease of left LE (vascular evaluated- no surgical intervention indicated), and lumbar MRI showing anterolisthesis of L4-L5 and L5-S1. No further imaging indicated upon admission. Pt may benefit from discussion with pain management concerning possible procedural interventions (injections, surgery, etc) as medical interventions do not appear to be controlling pt's pain adequately. Opioid induced constipation - per pt, the injections from last visit worked well and she has been moving her bowels every day - continue current home regimen; lubiprostone 8 mcg BID, docusate 100 mg BID DM w/ gastroparesis - last A1c 11/2023 7.1% - continue home insulin glargine 10u HS; will add SSI- adjust PRN - no record of previous gastric emptying study; may consider during this inpatient stay vs. outpatient - continue home compazine 5 mg TID PRN - zofran IV 4 mg q6hr PRN Leukocytosis - WBC 17 upon admission - suspect secondary to stress response from uncontrolled pain - no signs of infection - monitor for resolution Insomnia - continue zolpidem 10 mg HS PRN RLS - continue ropinirole 4mg HS HTN - continue home clonidine 0.1mg daily, hydralazine 25 mg TID, lisinopril 5 mg daily, nifedipine 120mg daily, metoprolol 50 mg daily GERD - continue pantoprazole 40 mg BID PAD - continue home plavix 75 mg daily and aspirin 81 mg daily Anxiety - continue home xanax 1mg TID PRN Diet: carb consistent DVT ppx: lovenox Code: full Dispo: med/surg History of Present Illness Chief Complaint: leg pain Primary Care Provider: Vince Vernon DO Pt is a 58 yo female with PMH of HTN, hx of MRSA infection, DM, HLD, seizures, DM, and GI bleeding presenting due to left leg pain. Pt explains this increased pain began Wednesday 01/31 and has progressively worsened since. She has been dealing with this pain for around the last 2 months. It is mostly in her leg lower back, left groin, and down her left leg. It feels like her left leg is burning. She has been taking pain medications at home which used to "take the edge off" but they were no longer working. She is frustrated and worn down explaining that she just wants to know what is causing her pain. She also notes she has been nauseous with some vomiting. Her BM have been regular. In the ER, pt was given dilaudid 1mg x2, oxycodone 5mg x1, ondansetron 4 mg x1, and 500cc of NS. A lidocaine patch was also applied to her lower back. Allergies Allergy/AdvReac Type Severity Reaction Status Date / Time morphine Allergy Severe blisters Verified 02/10/24 22:40 in mouth Sulfa (Sulfonamide Allergy Severe rash/swelli Verified 02/10/24 22:40 Antibiotics) ng amoxicillin [From Augmentin] Allergy Intermediate itching/power Verified 02/10/24 22:40 h ceftriaxone [From Rocephin] Allergy Intermediate Hives Verified 02/10/24 22:40 clavulanic acid Allergy Intermediate itching/power Verified 02/10/24 22:40 [From Augmentin] h erythromycin base Allergy Intermediate Hives Verified 02/10/24 22:40 vancomycin Allergy Intermediate YULIYA Verified 02/10/24 22:40 SYNDROME---CAN TAKE IF VERY SLOW DRIP. adhesive AdvReac Intermediate DERMABOND Verified 02/10/24 22:40 excoriates skin gabapentin AdvReac Intermediate Nausea Verified 02/10/24 22:40 iron [From Venofer] AdvReac Intermediate Hypertensio Verified 02/10/24 22:40 n Home Medications Medication Instructions Recorded Confirmed Type ropinirole 2 mg tablet 4 mg PO HS 10/19/20 02/10/24 History insulin lispro 100 unit/mL 5 unit subcut TIDM 03/08/22 02/10/24 History subcutaneous pen zolpidem 10 mg tablet 10 mg PO HS PRN Sleep 03/08/22 02/10/24 History insulin glargine 100 unit/mL (3 10 unit subcut HS 10/17/22 02/10/24 History mL) subcutaneous pen (Lantus Solostar U-100 Insulin) albuterol sulfate 90 mcg/actuation 2 puff inhalation QID PRN 05/08/23 02/10/24 History aerosol inhaler Shortness Of Breath Or Wheezing alprazolam 1 mg tablet 1 mg PO TID PRN Anxiety 05/08/23 02/10/24 History docusate sodium 100 mg capsule 100 mg PO BID 05/08/23 02/10/24 History metoprolol succinate 50 mg 50 mg PO QAM 05/08/23 02/10/24 History tablet,extended release 24 hr (Toprol XL) pantoprazole 40 mg tablet,delayed 40 mg PO BID 05/08/23 02/10/24 History release clopidogrel 75 mg tablet (Plavix) 75 mg PO DAILY #30 tabs 05/10/23 02/10/24 Rx prochlorperazine maleate 5 mg 5 mg PO TID PRN Nausea 06/13/23 02/10/24 History tablet aspirin 81 mg tablet,delayed 81 mg PO DAILY 09/19/23 02/10/24 History release hydralazine 25 mg tablet 25 mg PO TID 09/19/23 02/10/24 History nifedipine 60 mg tablet,extended 120 mg PO DAILY 09/19/23 02/10/24 History release 24 hr acetaminophen 325 mg tablet 650 mg (2 x 325 mg) PO QID #120 12/13/23 02/10/24 Rx (Athenol) tabs duloxetine 60 mg capsule,delayed 60 mg PO DAILY #30 caps 12/13/23 02/10/24 Rx release lidocaine 5 % topical patch 1 patch transdermal QAM #14 ea 12/13/23 02/10/24 Rx tizanidine 4 mg tablet 4 mg PO BID #60 tabs 12/13/23 02/10/24 Rx acetaminophen 500 mg tablet 1,000 mg (2 x 500 mg) PO TID #90 01/02/24 02/10/24 Rx (Tylenol Extra Strength) tabs carbamazepine 200 mg 200 mg PO BID #60 tabs 01/02/24 02/10/24 Rx tablet,extended release,12 hr clonidine HCl 0.1 mg tablet 0.1 mg PO QAM #30 tabs 01/02/24 02/10/24 Rx lisinopril 5 mg tablet (Zestril) 5 mg PO DAILY #30 tabs 01/02/24 02/10/24 Rx lubiprostone 8 mcg capsule 8 mcg PO BID #60 caps 01/02/24 02/10/24 Rx (Amitiza) 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 artery disease) long term (current) use of antithrombotics/antiplatelets (Acute) Acute dehydration (Acute) Type 2 diabetes mellitus (Acute) Nausea & vomiting (Acute) Abdominal pain (Acute) Acute dehydration (Acute) Elevated troponin (Acute) Diffuse abdominal pain (Acute) Uncontrolled hypertension Acute herpes zoster neuropathy (Acute) Infection due to Rivas catheter HTN (hypertension) MRSA bacteremia Ulcer of second toe of left foot (Acute) Leukocytosis (Acute) Elevated lactic acid level (Acute) Abscess of right axilla Axillary hidradenitis suppurativa (Acute) Vomiting (Acute) Headache (Acute) Constipation (Acute) Diarrhea (Acute) Internal jugular (IJ) vein thromboembolism, acute Amputation of left great toe Anemia Vitamin D deficiency Shoulder pain B12 deficiency Poor venous access (Acute) Acute leg pain (Acute) Costochondritis Globus pharyngeus Somatic dysfunction of thoracic region Chronic pain syndrome Acute adjustment disorder with mixed anxiety and depressed mood Insomnia Diarrhea Scapular dyskinesis Injury of left rotator cuff Numbness of upper extremity Status post spinal surgery Gastroparesis (Acute) Vitamin D deficiency Esophagitis History of tobacco use Toe ulcer, right MRSA (methicillin resistant staph aureus) culture positive Rash and nonspecific skin eruption Stye Acute hyperglycemia (Acute) Hyperglycemia due to type 2 diabetes mellitus (Acute) Tenosynovitis of ankle Surgical wound, non healing (Acute) Ankle ulcer due to DM Encounter for pre-operative examination Anxiety Diarrhea Emphysema lung Cellulitis of left foot (Acute) Diabetic foot ulcer (Acute) Acute leg pain (Acute) Iron deficiency anemia History of amputation of great toe Diabetic peripheral neuropathy Depression Nonobstructive atherosclerosis of coronary artery Chronic back pain Medical History PAD (peripheral artery disease) Hypertension Groin pain Foot pain Costochondritis Infection of left great toe due to methicillin resistant Staphylococcus aureus (MRSA) Diastolic CHF COVID-19 Osteomyelitis of great toe of left foot Chronic pain syndrome Opiate dependence Opiate abuse, continuous Acidosis, lactic Acute dehydration Gastroenteritis Sepsis Shortness of breath Opioid dependence Iron deficiency anemia Hypomagnesemia Diabetic peripheral neuropathy Insomnia 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 No issues per anesthesia postop progress note. HTN (hypertension) Anemia Hyponatremia Cellulitis Peripheral neuropathy Benzodiazepine withdrawal Right second toe ulcer Diabetes mellitus type 2, uncontrolled Hyperlipidemia Seizures Gastritis Depression Chronic back pain Nonobstructive atherosclerosis of coronary artery Numbness of lower extremity Hypertriglyceridemia CAD (coronary artery disease) History of tobacco use Benzodiazepine dependence Restless leg syndrome Diabetic neuropathy Abdominal pain Gastroparesis Esophagitis determined by endoscopy GIB (gastrointestinal bleeding) Insulin dependent diabetes mellitus DM2 (diabetes mellitus, type 2) IDDM, A1c 07/2021-11% Surgical History History of amputation of great toe History of right below knee amputation (12/22/21) Right Below Knee Amputation(Right) - Davon Good MD, FACS History of lumbar surgery History of esophagogastroduodenoscopy (EGD) Family History Mother , age 63 Myocardial infarction Father , age 68 or 69 Myocardial infarction Brother S/P CABG (coronary artery bypass graft) Sister Myocardial infarction x 3; she is 57yo Social History Smoking Status: Former smoker Tobacco Type: Cigarettes packs per day: 0.5; Cigarettes Per Day: 20; Second Hand Exposure: No; Do You Dip or Chew Tobacco: No; Hx Alcohol Use: No Hx Substance Use: Yes Prescribed Medications: Marijuana Last Used Substance: Days (ago) Last Used Substance Other:: Medical marijuana Substance Use Type Other:: Medical marijuana Preferred Language: Irish Communication Ability: Effective Visual Impairment: No Limitations Hearing Ability: Normal Nanny/Household Manager Required: No Beliefs That Will Affect Care: None marital status: Current Living Situation: Spouse current occupational status: unemployed 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 Other Information That Helps Us Care for You: No other: raising a grandchild as well; lives in [place] Feels Safe at Home: Yes Safety Concerns: Feels Safe At This Time Diet: diabetic and low salt during the past year weight has: remained stable Assistive Devices: Walker and Wheelchair Review of Systems Review of Systems: As per HPI Physical Exam Constitutional: NAD, vitals WNL. Respiratory: CTA bilaterally. Non labored breathing. No rhonchi, wheezing, or crackles. Cardiovascular: RRR. No murmurs noted. No edema in left LE. Left foot warm to touch with 2+ pulses. Gastrointestinal (Abdomen): Nontender, +BS. No masses noted. Musculoskeletal: BTK amputation of right LE noted. Amputation of first 3 digits of left foot also noted. Skin: No rashes or skin lesions noted. Neurologic: Sensation grossly intact. No FND appreciated. Psychiatric: Speech of normal pace and content. Mood and affect congruent. Results & Data Results & Data Vital Signs (Past 12 Hours) Vital Signs Temp Pulse Pulse Resp BP BP Pulse Ox 02/11/24 00:30 72 18 164/79 H 93 02/11/24 00:00 72 14 155/78 H 95 02/10/24 23:30 74 14 185/89 H 91 02/10/24 23:00 73 12 203/99 H 97 02/10/24 22:47 80 02/10/24 22:00 85 16 157/93 H 97 02/10/24 20:43 88 L 02/10/24 20:36 71 16 93 02/10/24 20:16 94 02/10/24 20:00 85 20 02/10/24 19:57 80 14 02/10/24 19:09 82 02/10/24 18:51 89 16 92 02/10/24 18:46 90 02/10/24 18:46 37.2 C 90 22 143/75 H 96 O2 Del Method O2 Flow Rate 02/11/24 00:30 Nasal Cannula 1 02/11/24 00:00 Nasal Cannula 1 02/10/24 23:30 Nasal Cannula 1 02/10/24 23:00 Room Air 02/10/24 22:47 02/10/24 22:00 Nasal Cannula 2 02/10/24 20:43 Room Air 0 02/10/24 20:36 Room Air 02/10/24 20:16 Room Air 02/10/24 20:00 02/10/24 19:57 02/10/24 19:09 02/10/24 18:51 02/10/24 18:46 02/10/24 18:46 Room Air Supervising Physician Co-Signing Physician Notes Attending addendum: I have physically seen this patient, have supervised the medical residents activities, and agree with the H&P unless as otherwise noted. Assessment and Plan: Intractable left lower extremity pain- Acute on chronic pain Patient reports unable to get her OxyContin twice daily dosing from last discharge She has been using oxycodone/acetaminophen 7.5/325, 2 tablets every 4 hours Admitted for pain control: Acetaminophen 650 mg by mouth every 6 hours scheduled Ibuprofen 600 mg by mouth every 8 hours scheduled Carbamazepine 200 mg p.o. twice daily Tizanidine 4 mg p.o. twice daily Cymbalta 60 mg p.o. daily OxyContin 45 mg p.o. twice daily Oxycodone 7.5 mg every 4 hours as needed for breakthrough pain 4-10 Dilaudid 1 mg IV every 3 hours as needed for breakthrough pain 7-05/22 Pain management consult, however, patient has refused during interventions in the past Opioid-induced constipation- Lubiprostone 8 mcg twice daily, docusate 100 mg twice daily Diabetes mellitus/gastroparesis- Continue glargine 10 units at bedtime Placed on SSI as noted Compazine 5 mg IV 3 times daily as needed Zofran 4 mg IV every 6 hours as needed Remaining orders and notations as noted Resident Activity Tracking Resident Involvement: Resident Care Provided Care Provided: Adult Hospital Medicine (4) Type 2 diabetes mellitus Diabetes mellitus complication status: with other specified complication Diabetes mellitus long term care administrator insulin use: with long term care administrator use Qualified Code(s): E11.69 - Type 2 diabetes mellitus with other specified complication; Z79.4 - correction (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 (7) Leukocytosis Leukocytosis type: unspecified Qualified Code(s): D72.829 - Elevated white blood cell count, unspecified
[2024-02-11] MEDS ORDERED: MELATONIN 3 MG TAB PO PRN (01:33)
[2024-02-11] MEDS: IBUPROFEN 600 MG TAB PO STA (01:52)
[2024-02-11] MEDS ORDERED: NALOXONE HCL 0.4 MG/1 ML VIAL/CARP IV PRN (01:52)
[2024-02-11] MEDS: ACETAMINOPHEN 325 MG TAB PO STA (01:52)
[2024-02-11] MEDS ORDERED: GLUCOSE 10 TAB/TUBE PO PRN (02:03)
[2024-02-11] MEDS ORDERED: GLUCAGON FOR INJ 1 MG VIAL SQ PRN (02:03)
[2024-02-11] MEDS ORDERED: CARBOHYDRATES FOR HYPOGLYCEMIA PO PRN (02:03)
[2024-02-11] MEDS ORDERED: DEXTROSE 50% 50 ML SYRINGE IV PRN (02:03)
[2024-02-11] MEDS ORDERED: GLUCOSE 40% GEL 15 GM TUBE PO PRN (02:03)
[2024-02-11] MEDS ORDERED: ALBUTEROL HFA 8 GM INHALER INH PRN (02:54)
[2024-02-11] MEDS ORDERED: ZOLPIDEM TARTRATE 5 MG TAB PO PRN (03:07)
[2024-02-11] MEDS: PROCHLORPERAZINE MALEATE 5 MG TAB PO PRN (03:19)
[2024-02-11] MEDS: ALPRAZolam 0.5 MG TABLET PO PRN (03:30)
[2024-02-11] MEDS: HYDROmorphone INJ 1 MG/ML SYRINGE IV PRN ×2 (03:30→14:37)
[2024-02-11] MEDS: oxyCODONE HCL IR 5 MG TAB (IMMEDIATE RELEASE) PO PRN (05:45)
[2024-02-11] MEDS: ACETAMINOPHEN 325 MG TAB PO SCH (06:12)
[2024-02-11] MEDS: IBUPROFEN 600 MG TAB PO SCH (07:46)
[2024-02-11] MEDS: oxyCODONE HCL 15 MG TABCR (OxyCONTIN) PO SCH (07:51)
[2024-02-11 08:29] LABS: Basophils # (auto) 0.06 K/uL (0.00-0.20); Basophils % (auto) 0.6 %; Eosinophils # (auto) 0.33 K/uL (0.00-0.50); Eosinophils % (auto) 3.5 %; Hemoglobin 12.2 g/dl (12.0-16.0); Immature Granulocytes # (auto) 0.02 K/uL (0.01-0.20); Immature Granulocytes % (auto) 0.2 %; Lymphocytes # (auto) 2.81 K/uL (1.20-3.40); Lymphocytes % (auto) 29.6 %; Mean Corpuscular Hemoglobin 26.1 pg (25.0-34.0); Mean Corpuscular Hgb Conc 31.3 g/dL (32.0-36.0); Mean Corpuscular Volume 83.5 fL (80.0-100.0); Mean Platelet Volume 9.4 fL (9.4-12.4); Monocytes # (auto) 0.66 K/uL (0.11-0.59); Neutrophils # (auto) 5.61 K/uL (1.40-6.50); Neutrophils % (auto) 59.1 %; Platelet Count 306 K/uL (130-400); RDW Coefficient of Variation 13.9 % (11.5-14.5); RDW Standard Deviation 42.5 fL (36.4-46.3); Red Blood Count 4.67 M/uL (4.20-5.40); White Blood Count 9.49 K/ul (4.8-10.8)
[2024-02-11] MEDS: ASPIRIN 81 MG ECTAB PO SCH (08:55)
[2024-02-11] MEDS: LUBIPROSTONE 8 MCG CAP PO SCH (08:55)
[2024-02-11] MEDS: DOCUSATE SODIUM 100 MG CAP PO SCH (08:55)
[2024-02-11] MEDS: METOPROLOL SUCC 50MG EXT REL TAB PO SCH (08:56)
[2024-02-11] MEDS: NIFEdipine EXTENDED REL 30 MG TABCR PO SCH (08:56)
[2024-02-11] MEDS: hydrALAZINE HCL 25 MG TAB PO SCH (08:56)
[2024-02-11] MEDS: PANTOprazole 40 MG TAB PO SCH (08:56)
[2024-02-11] MEDS: tiZANidine HCL 4 MG TABLET PO SCH (08:56)
[2024-02-11] MEDS: DULoxetine HCL 60 MG CAP PO SCH (08:56)
[2024-02-11] MEDS: ENOXAPARIN INJ 40 MG/0.4 ML SYR SQ SCH (08:57)
[2024-02-11] MEDS: carBAMazepine XR 200 MG TABCR PO SCH ×2 (08:57→20:55)
[2024-02-11] MEDS: cloNIDine HCL 0.1 MG TAB PO SCH (08:57)
[2024-02-11] MEDS: CLOPIDOGREL BISULFATE 75 MG TAB PO SCH (08:57)
[2024-02-11] MEDS: lisinopril 5 MG TAB PO SCH (08:57)
[2024-02-11] MEDS: INSULIN ASPART PER UNIT CHARGE SC SCH (08:59)
[2024-02-11] MEDS ORDERED: POLYETHYLENE (MIRALAX) 17 GM PACK PO SCH (09:00)
[2024-02-11] MEDS: ONDANSETRON INJ 2 MG/ML 2 ML VIAL IV PRN (09:04)
--- NOTE | 2024-02-11 09:18 | Hospitalist Progress Note ---
Date of Service February 11, 2024 Assessment & Plan (1) Intractable neuropathic pain of left lower extremity: (2) Gastroparesis: (3) PAD (peripheral artery disease): (4) Type 2 diabetes mellitus: (5) HTN (hypertension): (6) Insomnia: (7) Leukocytosis: Plan Pt is a 58 yo female with PMH of HTN, hx of MRSA infection, DM, HLD, seizures, DM, and GI bleeding presenting due to left leg pain. Acute on chronic pain - pt has extensive hx of abdominal and extremity pain; pain now is in her left lower back, left groin, and left leg Based on description of pain and L-spine MRI from 11/2023 showing grade I anterolisthesis of L4 and L5 and L5 on S1 and multilevel neural foraminal stenosis, most pronounced at the left L4-L5 neural foramen due to a left foraminal disc protrusion, as described above, consider possible her pain may be neuropathic in nature or have some contribution from neuropathy. - Will order pain regimen as detailed below tylenol 1000mg q6hr scheduled ibuprofen 600mg q8hr scheduled carbamazepine dose increased from 200 mg to 400 mg BID. May keep titrating dose up until max dose of 1.2g/day reached or pain is controlled tizanidine 4 mg BID cymbalta 60 mg daily. May consider increasing dose if neuropathic pain not well controlled with Carbamazepine oxycontin 45mg BID (135 MME) as this has helped her before oxycodone 7.5mg PRN for breakthrough pain 4-6/10 dilaudid IV 1mg PRN for breakthrough pain 7-10/10. Changed frequency to q3h - Discussed potential benefit of spinal injections for pain control as she has not had good pain control with medications, but patient stated she did not want to pursue this for now. Opioid induced constipation - per pt, the injections from last visit worked well and she has been moving her bowels every day - continue current home regimen; lubiprostone 8 mcg BID, docusate 100 mg BID DM w/ gastroparesis - last A1c 11/2023 7.1% - continue home insulin glargine 10u HS; will add SSI- adjust PRN - continue home compazine 5 mg TID PRN - zofran IV 4 mg q6hr PRN Leukocytosis -- Resolved - WBC 17 upon admission. Improved to 9.49 in am lab. Insomnia - continue zolpidem 10 mg HS PRN RLS - continue ropinirole 4mg HS HTN - continue home clonidine 0.1mg daily, hydralazine 25 mg TID, lisinopril 5 mg daily, nifedipine 120mg daily, metoprolol 50 mg daily GERD - continue pantoprazole 40 mg BID PAD - continue home plavix 75 mg daily and aspirin 81 mg daily Anxiety - continue home xanax 1mg TID PRN Diet: carb consistent DVT ppx: lovenox Code: full Dispo: December discharge back home once good pain control regimen established Admission and Anticipated Discharge Date Admission Date: February 11, 2024 Supervising Physician Co-Signing Physician Notes I personally examined the patient and verified all tanner points of history and exam, discussed case, and agree with decision making with Dr Alvarado Pain quite severe. Noted that she was doing well at time of discharge, but then insurance would not approve OxyContin. Pain got out of control. Subsequent nausea and vomiting. Vitals noted. She is in a moderate degree of pain related distress whenever I first see her, and this progresses to active vomiting while I am in the room. Breathing unlabored no accessory muscle use good effort. Skin without rashes pallor or icterus. No open lesions on her left foot. Acute on chronic painappears to have been under better control with the OxyContinresumed. She noted before this took a few days to get up to speed. Continue as needed Dilaudid for breakthrough. Increase Tegretol, consider increase duloxetine. Does not appear to have lumbar spine MRI findings that would support an upper lumbar radiculopathythis is probably more neuropathic/chronic pain related. Consider dedicated hip x-ray, but for now would simply be managing the pain even if it is DJD given the severity of it. As needed Phenergan additionally for nausea. Offered empathy and support. DVT prophylaxisLovenox Subjective Patient tearful and states that she has been feeling significant pain in her left lower back with radiation to her groin and running down her anterior thigh. Also states she has separate pain in left anterior leg. Pain has been present since Sunday (02/08/24). Endorses having nausea which she is unsure if it is related to her pain or some other cause. Vomited during evaluation. No fevers, chills, chest pain, SOB, or any other symptoms. Review of Systems Review of Systems: As per HPI Physical Exam Physical Exam: GENERAL: AAOx3, tearful, NAD CARDIO: RRR, no r/m/g RESPIRATORY: CTA b/l, normal respiratory effort, no respiratory distress GI: soft, nontender, nondistended EXTREMITIES: no visible lesions in b/l LE, no obvious deformity, no swelling or calf tenderness in b/l LE Results & Data Results & Data Vital Signs (Past 12 Hours) Vital Signs Temp Pulse Pulse Resp BP Pulse Ox O2 Del Method 02/11/24 07:50 Room Air 02/11/24 07:40 36.5 C 84 16 91/65 L 98 Room Air 02/11/24 02:30 Room Air 02/11/24 02:30 36.5 C 89 18 162/79 H 96 Room Air 02/11/24 02:00 70 14 193/89 H 97 Nasal Cannula 02/11/24 02:00 70 14 97 Nasal Cannula 02/11/24 01:00 70 18 138/76 93 Nasal Cannula 02/11/24 00:30 72 18 164/79 H 93 Nasal Cannula 02/11/24 00:00 72 14 155/78 H 95 Nasal Cannula 02/10/24 23:30 74 14 185/89 H 91 Nasal Cannula 02/10/24 23:00 73 12 203/99 H 97 Room Air 02/10/24 22:47 80 02/10/24 22:00 85 16 157/93 H 97 Nasal Cannula O2 Flow Rate 02/11/24 07:50 02/11/24 07:40 02/11/24 02:30 02/11/24 02:30 02/11/24 02:00 1 02/11/24 02:00 1 02/11/24 01:00 1 02/11/24 00:30 1 02/11/24 00:00 1 02/10/24 23:30 1 02/10/24 23:00 02/10/24 22:47 02/10/24 22:00 2 Resident Activity Tracking Resident Involvement: Resident Care Provided Care Provided: Adult Hospital Medicine (4) Type 2 diabetes mellitus Diabetes mellitus complication status: with other specified complication Diabetes mellitus director long term care insulin use: with director long term care use Qualified Code(s): E11.69 - Type 2 diabetes mellitus with other specified complication; Z79.4 - rn long term 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 (7) Leukocytosis Leukocytosis type: unspecified Qualified Code(s): D72.829 - Elevated white blood cell count, unspecified
[2024-02-11 11:21] LABS: Albumin Level 4.5 gm/dl (3.4-5.0); Bilirubin,Total 0.5 mg/dl (0.2-1.0); Calcium 9.5 mg/dl (8.6-10.3); Potassium 4.5 mmol/L (3.5-5.1)
[2024-02-11 11:26] LABS: Albumin Globulin Ratio 1.6 (0.9-2); BUN Creatinine Ratio 24.3 (10-20); Creatinine Clr Calc Pharmacy 140.2 ml/min; Est GFR (African American) 135.6 ml/min; Globulin 2.8 gm/dl (2.5-4.0); Total Protein 7.3 gm/dl (6.0-8.3)
[2024-02-11] MEDS: PROMETHAZINE HCL 6.25 MG in SODIUM CHLORIDE 0.9% 50 ML IV ONE (12:50)
[2024-02-11] MEDS: ACETAMINOPHEN 500 MG TAB PO SCH (17:13)
--- NOTE | 2024-02-11 19:28 | Billing Data ---
Date of Service February 11, 2024 Coding Level of Care Code 44028 SUB INP/OBS CARE MIN
[2024-02-11] MEDS: rOPINIRole HCL 2 MG TABLET PO SCH (20:53)
[2024-02-11] MEDS: LANTUS PER UNIT CHARGE SC SCH (21:09)
--- NOTE | 2024-02-12 06:11 | Electrocardiogram Report ---
Test Reason : Blood Pressure : / mmHG Vent. Rate : 081 BPM Atrial Rate : 081 BPM P-R Int : 154 ms QRS Dur : 076 ms QT Int : 354 ms P-R-T Axes : 064 073 086 degrees QTc Int : 411 ms Normal sinus rhythm Septal infarct (cited on or before 01-DEC-2023) Abnormal ECG When compared with ECG of 16-DEC-2023 18:57, No significant change was found Confirmed by Andre Hinojosa ([id number]) on 02/12/2024 6:11:06 AM Referred By: REFERRED SELF Confirmed By:Andre Hinojosa
[2024-02-12 07:10] LABS: Hematocrit (blood only) 36.1 % (37.0-47.0); Hemoglobin 11.6 g/dl (12.0-16.0); Mean Corpuscular Hemoglobin 26.3 pg (25.0-34.0); Mean Corpuscular Hgb Conc 32.1 g/dL (32.0-36.0); Mean Corpuscular Volume 81.9 fL (80.0-100.0); Mean Platelet Volume 9.3 fL (9.4-12.4); Platelet Count 306 K/uL (130-400); RDW Coefficient of Variation 13.2 % (11.5-14.5); RDW Standard Deviation 39.4 fL (36.4-46.3); Red Blood Count 4.41 M/uL (4.20-5.40); White Blood Count 10.22 K/ul (4.8-10.8)
[2024-02-12 08:03] LABS: Magnesium 1.8 mg/dl (1.7-2.4)
[2024-02-12 08:09] LABS: BUN Creatinine Ratio 36.1 (10-20); Creatinine Clr Calc Pharmacy 144.1 ml/min; Est GFR (African American) 136.8 ml/min
[2024-02-12] MEDS ORDERED: PROMETHAZINE HCL 6.25 MG in SODIUM CHLORIDE 0.9% 50 ML IV PRN (08:14)
[2024-02-12] MEDS: carBAMazepine 200 MG TABLET PO STA (08:59)
--- NOTE | 2024-02-12 09:49 | Hospitalist Progress Note ---
Date of Service February 12, 2024 Assessment & Plan (1) Intractable neuropathic pain of left lower extremity: (2) Gastroparesis: (3) PAD (peripheral artery disease): (4) Type 2 diabetes mellitus: (5) HTN (hypertension): (6) Insomnia: (7) Leukocytosis: Plan Pt is a 58 yo female with PMH of HTN, hx of MRSA infection, DM, HLD, seizures, DM, and GI bleeding presenting due to left leg pain. Acute on chronic pain - pt has extensive hx of abdominal and extremity pain; pain now is in her left lower back, left groin, and left leg Consider likely her pain may be neuropathic in nature or have large contribution from neuropathy. - Pain regimen as detailed below tylenol 1000mg q6hr scheduled ibuprofen 600mg q8hr scheduled carbamazepine dose maxed out from 400 mg to 600 mg BID tizanidine 4 mg BID cymbalta 60 mg daily oxycontin 45mg BID (135 MME) as this has helped her before oxycodone 7.5mg PRN for breakthrough pain -01/20 dilaudid IV 1mg Q3H PRN for breakthrough pain -05/22 - Discussed benefit of trying PO medications without the IV Dilaudid to accurately assess the effectiveness of PO medications in getting adequate custodial pain control for when she is eventually discharged. Patient states that she does not want to use Oxycontin since she does not want to have to wait for pain relief with PO medications which she can't take due to her nausea. Discussed the benefit of custodial pain control of Oxycontin plus short term Oxycodone as needed versus short term relief with just Dilaudid, and also nausea control medications added. Agreed to try pm dose of PO meds to assess effectiveness. Nausea - Possibly combined effect of likely gastroparesis and pain - Ordered IV Compazine and Phenergan for better control of nausea and increase tolerance of PO medications Opioid induced constipation - per pt, the injections from last visit worked well and she has been moving her bowels every day - continue current home regimen; lubiprostone 8 mcg BID, docusate 100 mg BID DM w/ gastroparesis - last A1c 11/2023 7.1% - continue home insulin glargine 10u HS; will add SSI- adjust PRN - nausea control as detailed above Leukocytosis -- Resolved - WBC 10.22 in am labs Insomnia - continue zolpidem 10 mg HS PRN RLS - continue ropinirole 4mg HS HTN - continue home clonidine 0.1mg daily, hydralazine 25 mg TID, lisinopril 5 mg daily, nifedipine 120mg daily, metoprolol 50 mg daily - BP have been elevated which suspect could be related to pain - Will continue to monitor BP control while on Carbamazepine as this can increase speed of Nifedipine clearance GERD - continue pantoprazole 40 mg BID PAD - continue home plavix 75 mg daily and aspirin 81 mg daily Anxiety - continue home xanax 1mg TID PRN Diet: carb consistent DVT ppx: lovenox Code: full Dispo: December discharge back home once good pain control regimen established Admission and Anticipated Discharge Date Admission Date: February 11, 2024 Supervising Physician Co-Signing Physician Notes I personally examined the patient and verified all tanner points of history and exam, discussed case, and agree with decision making with Dr Alvarado Tearful and tired of being in pain. However, on directed questioning, she does note that whenever she was on the OxyContin during last admission she actually had adequate pain relief. She notes that the pain now is essentially identical to what she was feeling before relief with the OxyContin beforecontinues to be across into her groin, as well as down her leg. Vitals noted, in general she is laying in bed still and quiet mildly tearful but in less distress than yesterday. HEENT normocephalic atraumatic mucous membranes moist. Breathing unlabored no accessory muscle use good effort. Skin shows no rashes no pallor or icterus. Neuro without focal deficits. Acute on chronic painappears to have been under better control with the OxyContinresumed. Was unable to take this morning's dose due to nauseahave multi modal management for nausea ordereddiscussed with patient that given that there is not really an IV equivalent of a long-acting opiate it is imperative for her pain relief that she takes the OxyContin. Continue with oxycodone p.o. versus Dilaudid IV for breakthroughdid encourage her gently to try the p.o. given this I will be more viable with being able to be at home. Considering whether or not some of her pain is lumbar radicularparticularly the part that goes down her medial leg and into her footgiven that she does have L3-4 disc disease; at the same time what really seems to bother her more goes across her thigh and into her groinand she does not have upper lumbar disc disease on her recent MRI. Consider dedicated hip imaging, but management will really be pain control anyway. Continue OxyContin, escalated tegretol, continue breakthrough medications. Consider redosing of steroids or pain management consult to explore whether or not she truly does have an L4 radiculopathybut at the same time given that the last time pain management saw her they did not feel an indication was warranted and that was not that long ago, I doubt intervention would be entertained at this point either. Ongoing empathy and support. Ongoing attempts to defensive secondary coach in a mind/body approach to pain control. constipation - opiate induced. she notes she did well w relistor last admission - will resume. It is possible her nausea is multifactorial between uncontrolled pain and opiate induced constipationso hopefully the [employer] may help with the nausea that is from constipation. DVT prophylaxisLovenox Subjective Patient laying in bed and refers still has pain and that in terms of intensity it is the same as yesterday despite the changes in medication doses. Has had to use IV Dilaudid with PO meds for pain control. Still feeling nauseous as well. No fevers, chills, chest pain, SOB, or any new symptoms. 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
--- NOTE | 2024-02-12 16:29 | Billing Data ---
Date of Service February 12, 2024 Coding Level of Care Code 44870 SUB INP/OBS CARE
[2024-02-12] MEDS: METHYLNALTREXONE BROMIDE 12 MG/0.6 ML VIAL SQ SCH (17:38)
[2024-02-12] MEDS: carBAMazepine XR 200 MG TABCR PO SCH (21:29)
[2024-02-13 07:11] LABS: Hematocrit (blood only) 35.3 % (37.0-47.0); Hemoglobin 11.5 g/dl (12.0-16.0); Mean Corpuscular Hemoglobin 26.3 pg (25.0-34.0); Mean Corpuscular Hgb Conc 32.6 g/dL (32.0-36.0); Mean Corpuscular Volume 80.8 fL (80.0-100.0); Mean Platelet Volume 9.8 fL (9.4-12.4); Platelet Count 345 K/uL (130-400); RDW Coefficient of Variation 13.5 % (11.5-14.5); RDW Standard Deviation 39.9 fL (36.4-46.3); Red Blood Count 4.37 M/uL (4.20-5.40); White Blood Count 10.73 K/ul (4.8-10.8)
[2024-02-13 07:25] LABS: Creatinine Clr Calc Pharmacy 129.7 ml/min; Est GFR (African American) 132.1 ml/min; Potassium 3.7 mmol/L (3.5-5.1)
[2024-02-13] MEDS: PROCHLORPERAZINE 10 MG in SYRINGE 8 ML IV PRN (08:15)
[2024-02-13] MEDS: ACETAMINOPHEN 500 MG TAB PO SCH (09:15)
--- NOTE | 2024-02-13 09:21 | Hospitalist Progress Note ---
Date of Service February 13, 2024 Assessment & Plan (1) Intractable neuropathic pain of left lower extremity: (2) Gastroparesis: (3) PAD (peripheral artery disease): (4) Type 2 diabetes mellitus: (5) HTN (hypertension): (6) Insomnia: (7) Leukocytosis: Plan Pt is a 58 yo female with PMH of HTN, hx of MRSA infection, DM, HLD, seizures, DM, and GI bleeding presenting due to left leg pain. Acute on chronic pain - pt has extensive hx of abdominal and extremity pain; pain now is in her left lower back, left groin, and left leg Consider likely her pain may be neuropathic in nature or have large contribution from neuropathy. - Pain regimen as detailed below tylenol 1000mg q6hr scheduled ibuprofen 600mg q8hr scheduled carbamazepine dose maxed out at 600 mg BID tizanidine 4 mg BID cymbalta 60 mg daily oxycontin 45mg BID (135 MME). Offered to increase dose for better control but patient preferred not to. oxycodone 7.5mg PRN for breakthrough pain -01/20 dilaudid IV 1mg Q3H PRN for breakthrough pain 7-05/22 - If poor pain control today, will add steroid to address possible lumbar radiculopathy - Once adequate pain control achievd with PO regimen, will discharge back home with that. Nausea - Possibly combined effect of likely gastroparesis and pain - Continue IV Compazine and Phenergan Opioid induced constipation - per pt, the injections from last visit worked well and she has been moving her bowels every day - continue current home regimen; lubiprostone 8 mcg BID, docusate 100 mg BID DM w/ gastroparesis - last A1c 11/2023 7.1% - continue home insulin glargine 10u HS; will add SSI- adjust PRN - nausea control as detailed above Leukocytosis -- Resolved - WBC 10.73 in am labs Insomnia - continue zolpidem 10 mg HS PRN RLS - continue ropinirole 4mg HS HTN - continue home clonidine 0.1mg daily, hydralazine 25 mg TID, lisinopril 5 mg daily, nifedipine 120mg daily, metoprolol 50 mg daily - Stable - Will continue to monitor BP control while on Carbamazepine as this can increase speed of Nifedipine clearance GERD - continue pantoprazole 40 mg BID PAD - continue home plavix 75 mg daily and aspirin 81 mg daily Anxiety - continue home xanax 1mg TID PRN Diet: carb consistent DVT ppx: lovenox Code: full Dispo: May discharge back home once good pain control regimen established Admission and Anticipated Discharge Date Admission Date: February 11, 2024 Supervising Physician Co-Signing Physician Notes I personally examined the patient and verified all tanner points of history and exam, discussed case, and agree with decision making with Dr Alvarado notes that she does not feel very goodnotes that she feels somewhat groggy and almost drunk from medications. However, she notes on at least 3 different lines of questioning that not only is her pain controlled, she feels no pain.. Vitals noted, Awake alert oriented lucid and conversive, but does have slight grogginess and slight slurring of speech. Breathing unlabored no accessory muscle use good effort. Skin without rashes pallor or icterus. Neuro shows cranial nerves II through XII to be grossly intact no gross motor or sensory deficits that are new are noted. Acute on chronic pain Amazingly she repeats on multiple lines of questioning that not only is her pain under control but that she has no pain. At the same time she does express not liking how she feels as far as feeling a bit drunk on the medications. We discussed that right now this is very much a risk/benefit decision, and that it is quite likely that as her body gets more used to the medication regimen the drunk feeling is likely to fade; at the same time, given how much she has been suffering, if the short-term choice is really a trade off between feeling drunk or the suffering that she was having, it seems to me that if she is truly feeling no pain right now that is a progress that is worth preservingwhen explained this way she agrees. We did discuss that if she continues to feel drunk without any significant improvement, we can start to gently titrate back on medications (would consider dose reduction in carbamazepine first, followed by dose reduction of OxyContinbut also we discussed to allow at least another day or 2 to see if the symptoms do not just alleviate them cells). Again I am quite amazed that she noted multiple times on multiple lines of questioning that she really feels no pain today. constipation - opiate induced. Relistor, colace, amitiza DVT prophylaxisLovenox Subjective Patient refers having the same pain as yesterday despite trying the PO meds last night. Refers continued nausea that has limited her oral intake of food but was able to drink orange juice this morning. Interested in trying a softer diet instead. No fevers, chills, chest pain, SOB, palpitations, or any other symptoms. 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 Results & Data Results & Data Vital Signs (Past 12 Hours) Vital Signs Temp Pulse Resp BP Pulse Ox O2 Del Method 02/13/24 07:38 36.5 C 82 16 146/64 H 94 Room Air 02/12/24 21:26 36.7 C 80 16 115/62 96 Room Air Resident Activity Tracking Resident Involvement: Resident Care Provided Care Provided: Adult Hospital Medicine (4) Type 2 diabetes mellitus Diabetes mellitus complication status: with other specified complication Diabetes mellitus supervisor intermediates insulin use: with supervisor intermediates use Qualified Code(s): E11.69 - Type 2 diabetes mellitus with other specified complication; Z79.4 - terminal gauger supervisor (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 (7) Leukocytosis Leukocytosis type: unspecified Qualified Code(s): D72.829 - Elevated white blood cell count, unspecified
--- NOTE | 2024-02-13 15:56 | Billing Data ---
Date of Service February 13, 2024 Coding Level of Care Code 04777 SUB INP/OBS CARE
[2024-02-14 07:47] LABS: Hemoglobin 11.6 g/dl (12.0-16.0); Mean Corpuscular Hemoglobin 26.2 pg (25.0-34.0); Mean Corpuscular Hgb Conc 32.2 g/dL (32.0-36.0); Mean Corpuscular Volume 81.4 fL (80.0-100.0); Mean Platelet Volume 9.7 fL (9.4-12.4); Platelet Count 327 K/uL (130-400); RDW Coefficient of Variation 13.6 % (11.5-14.5); RDW Standard Deviation 40.6 fL (36.4-46.3); Red Blood Count 4.42 M/uL (4.20-5.40); White Blood Count 10.63 K/ul (4.8-10.8)
[2024-02-14 07:56] LABS: BUN Creatinine Ratio 33.3 (10-20); Calcium 8.7 mg/dl (8.6-10.3); Creatinine Clr Calc Pharmacy 108.1 ml/min; Est GFR (African American) 124.4 ml/min; Est GFR (Non-African American) 107.4 ml/min; Potassium 3.7 mmol/L (3.5-5.1)
--- NOTE | 2024-02-14 09:24 | Hospitalist Progress Note ---
Date of Service February 14, 2024 Assessment & Plan (1) Intractable neuropathic pain of left lower extremity: (2) Gastroparesis: (3) PAD (peripheral artery disease): (4) Type 2 diabetes mellitus: (5) HTN (hypertension): (6) Insomnia: (7) Leukocytosis: Plan Pt is a 58 yo female with PMH of HTN, hx of MRSA infection, DM, HLD, seizures, DM, and GI bleeding presenting due to left leg pain. Acute on chronic pain - pt has extensive hx of abdominal and extremity pain; pain now is in her left lower back, left groin, and left leg Consider likely her pain may be neuropathic in nature or have large contribution from neuropathy. - Pain regimen as detailed below tylenol 1000mg q8hr scheduled ibuprofen 600mg q8hr scheduled carbamazepine dose maxed out at 600 mg BID tizanidine 4 mg BID cymbalta 60 mg daily oxycontin 45mg BID (135 MME). Patient states it does not decrease her pain and does not like the side effects. oxycodone 7.5mg PRN for breakthrough pain -01/20 dilaudid IV 1mg Q3H PRN for breakthrough pain 7-05/22 - Once adequate pain control achieved with PO regimen, will discharge back home. Nausea - Possibly combined effect of likely gastroparesis and pain - Continue IV Compazine and Phenergan Opioid induced constipation - per pt, the injections from last visit worked well and she has been moving her bowels every day - continue current home regimen; lubiprostone 8 mcg BID, docusate 100 mg BID DM w/ gastroparesis - last A1c 11/2023 7.1% - continue home insulin glargine 10u HS; will add SSI- adjust PRN - nausea control as detailed above Leukocytosis -- Resolved Insomnia - continue zolpidem 10 mg HS PRN RLS - continue ropinirole 4mg HS HTN - continue home clonidine 0.1mg daily, hydralazine 25 mg TID, lisinopril 5 mg daily, nifedipine 120mg daily, metoprolol 50 mg daily - BP elevated in am before and shortly after antihypertensives given, but patient asymptomatic - Will continue to monitor BP control while on Carbamazepine as this can increase speed of Nifedipine clearance GERD - continue pantoprazole 40 mg BID PAD - continue home plavix 75 mg daily and aspirin 81 mg daily Anxiety - continue home xanax 1mg TID PRN Diet: carb consistent DVT ppx: lovenox Code: full Dispo: May discharge back home once good pain control regimen established Admission and Anticipated Discharge Date Admission Date: February 11, 2024 Supervising Physician Co-Signing Physician Notes I personally examined the patient and verified all tanner points of history and exam, discussed case, and agree with decision making with Dr Alvarado very dysphoric about feeling groggy/unsteady/unsteady vision. Vitals noted, Awake alert oriented lucid and conversive, but does have slight grogginess and slight slurring of speech - maybe a little worse than . at one point she turns away from me during conversation and i ask if it is because she is zoning out/not able to respond or because she's mad at me and doesn't want to make eye contact - she affirms the latter. Breathing unlabored no accessory muscle use good effort. Skin without rashes pallor or icterus. Neuro shows cranial nerves II through XII to be grossly intact no gross motor or sensory deficits that are new are noted. Acute on chronic pain yesterday she noted on multiple lines of questioning that she had no pain. today she endorses pain but only in passing, focused mostly on not feeling well w grogginess and unsteadiness. as we had discussed yesterday, my suspicion was that these would likely be fairly transient ADRs given the rapid escalation in dosing, and that given her daily life, per her own accounts as well as multiple and prolonged hospitalizations, is wrought with suffering from pain, that if we had truly made such an impact on her pain it might be worthwhile to wait out groggy/ataxic effects for another few days (especially since she's in the safe environment of the hospital) but today she is crying and tearful that she does not like how she is feeling. i discussed quite frankly that not only am i concerned that titrating back on medications will allow her pain to worsen, but that i unfortunately would expect that to be the case given her longstanding history of chronic pain. despite this she now endorses that she currently wants the groggy and unsettled feelings to go away. escalated dosing of carbamazepine >> oxycontin more likely to be causative of her symptoms (could easily be both though) - will hold carbamazepine entirely for now and follow symptoms - assuming resolution can consider restarting back at lower dosing. d/w pt that if pain worsens we will obviously need to address that but given that this is her choice to de-escalate for what could be transient ADRs in a med regimen that seems to be helping what has been chronic and debilitatingly severe pain it will not be appropriate if she gets angry/lashes out should pain worsen. constipation - opiate induced. Relistor, colace, amitiza DVT prophylaxisLovenox Subjective Patient lying in bed. States she has been having pain and that she does not like using Oxycontin due to poor pain control and due to how it makes her feel: groggy, sluggish, makes her see like "everything is bouncing". She states that she was also having these side effects in her last admission and told the physician, but they made no changes. She states that her pain is only controlled with IV Dilaudid and that it does not lead to the same side effects as the Oxycontin. Still endorses nausea and poor appetite. No chest pain, SOB, palpitations, weakness, or any other symptom. 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 NEURO: normal speech, LINA, EOM intact, symmetric eyebrow rise and smile, symmetric tongue protrusion, no weakness when raising her arms bilaterally and able to lift both her LE, no urinary incontinence Results & Data Results & Data Vital Signs (Past 12 Hours) Vital Signs Temp Pulse Resp BP Pulse Ox O2 Del Method 02/14/24 08:06 88 20 180/90 H 95 Room Air 02/14/24 07:05 36.7 C 85 16 171/68 H 96 Room Air Resident Activity Tracking Resident Involvement: Resident Care Provided Care Provided: Adult [facility] Medicine (4) Type 2 diabetes mellitus Diabetes mellitus complication status: with other specified complication Diabetes mellitus fci insulin use: with fci use Qualified Code(s): E11.69 - Type 2 diabetes mellitus with other specified complication; Z79.4 - jail (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 (7) Leukocytosis Leukocytosis type: unspecified Qualified Code(s): D72.829 - Elevated white blood cell count, unspecified
[2024-02-14] MEDS: ACETAMINOPHEN 500 MG TAB PO SCH (13:55)
--- NOTE | 2024-02-14 17:03 | Billing Data ---
Date of Service February 14, 2024 Coding Level of Care Code 10626 SUB INP/OBS CARE
[2024-02-15 07:32] LABS: Hemoglobin 12.4 g/dl (12.0-16.0); Mean Corpuscular Hemoglobin 26.1 pg (25.0-34.0); Mean Corpuscular Hgb Conc 31.8 g/dL (32.0-36.0); Mean Corpuscular Volume 81.9 fL (80.0-100.0); Mean Platelet Volume 9.6 fL (9.4-12.4); Platelet Count 334 K/uL (130-400); RDW Coefficient of Variation 13.7 % (11.5-14.5); RDW Standard Deviation 40.5 fL (36.4-46.3); Red Blood Count 4.76 M/uL (4.20-5.40); White Blood Count 9.91 K/ul (4.8-10.8)
--- NOTE | 2024-02-15 09:18 | XRay Report ---
XR hip LT 2V w pelvis CLINICAL HISTORY: left groin pain - ?DJD COMPARISON: CTA of the abdomen and pelvis December 16, 2023. FINDINGS: L5-S1 decompression and fusion is incidentally noted. There are no fractures within the pe lvis or hips. No osseous lesions are identified. There is mild joint space narrowing and osteophytosi s within the hips. There is no evidence for avascular necrosis of the femoral heads. IMPRESSION: 1. No fractures within the pelvis or hips. 2. Mild degenerative changes within the bilateral hips. ACT 112: Negative or not required by law. Electronically signed by: Wilver Powell M.D. 02/15/2024 9:15 AM
--- NOTE | 2024-02-15 11:05 | Hospitalist Progress Note ---
Date of Service February 15, 2024 Assessment & Plan (1) Intractable neuropathic pain of left lower extremity: (2) Gastroparesis: (3) PAD (peripheral artery disease): (4) Type 2 diabetes mellitus: (5) HTN (hypertension): (6) Insomnia: (7) Leukocytosis: Plan Pt is a 58 yo female with PMH of HTN, hx of MRSA infection, DM, HLD, seizures, DM, and GI bleeding presenting due to left leg pain. Acute on chronic pain - pt has extensive hx of abdominal and extremity pain; pain now is in her left lower back, left groin, and left leg Consider likely her pain may be neuropathic in nature or have large contribution from neuropathy. - Pain regimen as detailed below tylenol 1000mg q8hr scheduled ibuprofen 600mg q8hr scheduled tizanidine 4 mg BID cymbalta 60 mg daily oxycontin 45mg BID (135 MME). Patient states it does not decrease her pain and does not like how it makes her feel. oxycodone 7.5mg PRN for breakthrough pain -01/20 dilaudid IV 1mg Q3H PRN for breakthrough pain -05/22 -Carbamazepine stopped in an effort to decrease sedating effects of medications as patient was expressing she did not like feeling groggy/sedated. - Hip XR negative for fractures - Once adequate pain control achieved with PO regimen, will discharge back home. Nausea - Possibly combined effect of likely gastroparesis and pain - Continue IV Compazine and Phenergan Opioid induced constipation - per pt, the injections from last visit worked well and she has been moving her bowels every day - continue current home regimen; lubiprostone 8 mcg BID, docusate 100 mg BID DM w/ gastroparesis - last A1c 11/2023 7.1% - continue home insulin glargine 10u HS; will add SSI- adjust PRN - nausea control as detailed above Leukocytosis -- Resolved Insomnia - continue zolpidem 10 mg HS PRN RLS - continue ropinirole 4mg HS HTN - continue home clonidine 0.1mg daily, hydralazine 25 mg TID, lisinopril 5 mg daily, nifedipine 120mg daily, metoprolol 50 mg daily - BP elevated in the morning despite dc Carbamazepine - Patient asymptomatic - Contuinue to monitor GERD - continue pantoprazole 40 mg BID PAD - continue home plavix 75 mg daily and aspirin 81 mg daily Anxiety - continue home xanax 1mg TID PRN Diet: carb consistent DVT ppx: lovenox Code: full Dispo: May discharge back home once good pain control regimen established Admission and Anticipated Discharge Date Admission Date: February 11, 2024 Supervising Physician Co-Signing Physician Notes I personally examined the patient and verified all tanner points of history and exam, discussed case, and agree with decision making with Dr Alvarado awake and alert. Has leg pain. Still feels a little bit off mentally but not as bad as before. Extensive and deep discussion with patient on the realistic goals between controlling her pain and avoiding medication side effectsand was very plain with the patient that I do not believe we will have a perfect balancethat realistically we will probably either have to trade some degree of lesser pain control for more mental clarity, or some degree of more medication side effect for less pain controlbut given the severity and difficulty of her situation, I really do not think chasing a perfect balance will be realistic. Vitals noted, in general she is awake and alert pleasant no distress. HEENT normocephalic atraumatic mucous membranes moist. Breathing unlabored no accessory muscle use good effort. Skin shows no rashes no pallor or icterus. Hip x-rays reviewedmild arthritis. Acute on chronic pain Etiology seems to be multifactorialsome chronic neuropathic, some possibly an L4 radiculopathy, some may be mild hip arthritis. Extremely worthy of noting, 2 days ago she expressed that she had 0 pain, but was somewhat sedated from medications, and then yesterday the sedation from medications was bad enough that she felt it was more intolerable and the pain. Carbamazepine was probably a bigger culprit than OxyContin, although both may have played a role. Carbamazepine stoppedbut she also has been refusing the OxyContin. Of course then her pain has worsened. Extensive discussion as above. Discussed with patient it is more likely the carbamazepine was causing the altered mental status we are seeing, although both could be a culprit. Also discussed the delicate balance with no anticipation of a perfect balance between pain relief and medication side effects. Discussed with patient it would be worthwhile to try taking the OxyContin twice daily for the next 48 hoursto see (removed from the combination of that and the carbamazepine) how much side effect she experiences purely from the OxyContin. If she has adequate pain relief, it must also be noted that she did not have insurance approval for OxyContin at previous discharge and prior authorization would need to be obtained prior to being able to discharge krystina otherwise she would go home and not be able to continue her pain regimen. constipation - opiate induced. Relistor, colace, amitiza DVT prophylaxisLovenox Subjective Patient not in room at time of evaluation. She had gone downstairs x-ray. Nursing states patient was feeling groggy and weak and that she was attributing this to being oxycontin and therefore had been denying this medication. Has been using IV Dilaudid for pain control. No overnight events. 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 NEURO: normal speech, LINA, EOM intact, symmetric eyebrow rise and smile, symmetric tongue protrusion, no weakness when raising her arms bilaterally and able to lift both her LE, no urinary incontinence Results & Data Results & Data Vital Signs (Past 12 Hours) Vital Signs Temp Pulse Resp BP Pulse Ox O2 Del Method 02/15/24 10:57 80 20 180/76 H 96 Room Air 02/15/24 07:10 36.8 C 79 16 200/77 H 95 Room Air Resident Activity Tracking Resident Involvement: Resident Care Provided Care Provided: Adult Hospital Medicine (4) Type 2 diabetes mellitus Diabetes mellitus complication status: with other specified complication Diabetes mellitus longterm insulin use: with intermediate frame tender use Qualified Code(s): E11.69 - Type 2 diabetes mellitus with other specified complication; Z79.4 - prison (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 (7) Leukocytosis Leukocytosis type: unspecified Qualified Code(s): D72.829 - Elevated white blood cell count, unspecified
--- NOTE | 2024-02-15 16:27 | Billing Data ---
Date of Service February 15, 2024 Coding Level of Care Code 43547 SUB INP/OBS CARE
--- NOTE | 2024-02-15 20:26 | Billing Data ---
Date of Service February 15, 2024 Coding Level of Care Code 71707 INT INP/OBS CARE
[2024-02-15] MEDS ORDERED: ONDANSETRON INJ 2 MG/ML 2 ML VIAL IV PRN (22:25)
[2024-02-15] MEDS ORDERED: methylPREDNISolone 125 MG/2 ML VIAL IV ONE (22:35)
--- NOTE | 2024-02-15 22:38 | Communication Note ---
Date of Service: February 15, 2024 Alerted by nursing at approximally 2200 of concern for new onset dysphagia and lightheadedness. Saw pt at bedside and her main complaint was dysphagia, noted some chest discomfort, but was not able to categorize in. Vital signs stable- no dyspnea, trouble breathing, throat/lip/tongue swelling. No new foods/medications. AA0x3, neuro exam without focal neurological deficits- CN II- XII intact, strength 5/5 UE/LE. Given 50mg Benadryl and 100mg Solu-Medrol. VBG, ammonia, CBC, CMP, trop are all wnl. Head CT without acute pathology. Upgraded to telemetry.
[2024-02-15] MEDS: methylPREDNISolone 100 MG in SYRINGE 0 ML IV STA (22:51)
[2024-02-15 23:11] LABS: Base Excess VBG 2.4 mEq/L; HCO3 VBG 27 mmol/L; Oxygen Saturation VBG 82.6 %; PCO2 VBG 42 mmHg (38-50); PO2 VBG 48 mmHg; pH VBG 7.42 (7.36-7.41)
[2024-02-15 23:14] LABS: Basophils # (auto) 0.06 K/uL (0.00-0.20); Basophils % (auto) 0.6 %; Eosinophils # (auto) 0.16 K/uL (0.00-0.50); Eosinophils % (auto) 1.5 %; Hematocrit (blood only) 40.9 % (37.0-47.0); Hemoglobin 13.2 g/dl (12.0-16.0); Immature Granulocytes # (auto) 0.03 K/uL (0.01-0.20); Immature Granulocytes % (auto) 0.3 %; Lymphocytes # (auto) 2.65 K/uL (1.20-3.40); Mean Corpuscular Hemoglobin 26.3 pg (25.0-34.0); Mean Corpuscular Hgb Conc 32.3 g/dL (32.0-36.0); Mean Corpuscular Volume 81.6 fL (80.0-100.0); Mean Platelet Volume 9.8 fL (9.4-12.4); Monocytes # (auto) 0.76 K/uL (0.11-0.59); Monocytes % (auto) 7.2 %; Neutrophils # (auto) 6.94 K/uL (1.40-6.50); Neutrophils % (auto) 65.4 %; Platelet Count 347 K/uL (130-400); RDW Coefficient of Variation 13.6 % (11.5-14.5); RDW Standard Deviation 40.2 fL (36.4-46.3); Red Blood Count 5.01 M/uL (4.20-5.40)
[2024-02-15 23:30] LABS: Albumin Globulin Ratio 1.5 (0.9-2); Albumin Level 4.4 gm/dl (3.4-5.0); BUN Creatinine Ratio 28.6 (10-20); Bilirubin,Total 0.4 mg/dl (0.2-1.0); Creatinine Clr Calc Pharmacy 92.6 ml/min; Est GFR (African American) 118.3 ml/min; Est GFR (Non-African American) 102.1 ml/min; Magnesium 1.8 mg/dl (1.7-2.4); Potassium 3.6 mmol/L (3.5-5.1); Total Protein 7.4 gm/dl (6.0-8.3)
[2024-02-15 23:38] LABS: Troponin I High Sensitivity 5.8 pg/ml (0-14)
[2024-02-16] MEDS: diphenhydrAMINE 50 MG/ML VIAL IV ONE (01:04)
--- NOTE | 2024-02-16 02:34 | CT Scan Report ---
Exam(s): CT HEAD Without Contrast EXAM: CT Head Without Intravenous Contrast CLINICAL HISTORY: Altered mental status. TECHNIQUE: Axial computed tomography images of the head/brain without intravenous contrast. CTDI is 38.1 mGy and DLP is 703.85 mGy-cm. Automated exposure control was utilized for the study. A dose lowering technique was utilized adhering to the principles of ALARA. COMPARISON: CT head 08/07/2023 FINDINGS: Brain: No intracranial hemorrhage, mass-effect or midline shift. No abnormal extra axial fluid. No evidence of acute infarct. Mild periventricular white matter hypodensities are most consistent with chronic microangiopathy. Ventricles: Unremarkable. No ventriculomegaly. Bones/joints: Unremarkable. No acute fracture. Soft tissues: Unremarkable. Sinuses: Unremarkable as visualized. No acute sinusitis. Mastoid air cells: Unremarkable as visualized. No mastoid effusion. IMPRESSION: No acute intracranial finding. Electronically signed by: Kandace Taylor MD 02/16/24 02:33 AM
--- NOTE | 2024-02-16 08:40 | Hospitalist Progress Note ---
Date of Service February 16, 2024 Assessment & Plan (1) Intractable neuropathic pain of left lower extremity: (2) Gastroparesis: (3) PAD (peripheral artery disease): (4) Type 2 diabetes mellitus: (5) HTN (hypertension): (6) Insomnia: (7) Leukocytosis: Plan Pt is a 58 yo female with PMH of HTN, hx of MRSA infection, DM, HLD, seizures, DM, and GI bleeding presenting due to left leg pain. Acute on chronic pain - pt has extensive hx of abdominal and extremity pain; pain now is in her left lower back, left groin, and left leg Consider likely her pain may be neuropathic in nature or have large contribution from neuropathy. - Pain regimen as detailed below lidocaine patch tylenol 1000mg q8hr scheduled ibuprofen 600mg q8hr scheduled tizanidine 4 mg BID cymbalta 60 mg daily oxycontin 45mg BID (135 MME). Patient states it does not decrease her pain and does not like how it makes her feel. oxycodone 7.5mg PRN for breakthrough pain -01/20 dilaudid IV 1mg Q3H PRN for breakthrough pain 7-05/22 -Carbamazepine stopped in an effort to decrease sedating effects of medications as patient was expressing she did not like feeling groggy/sedated. - Hip XR negative for fractures - Once adequate pain control achieved with PO regimen, will discharge back home. Nausea - Possibly combined effect of likely gastroparesis and pain - Continue IV Compazine and Phenergan Opioid induced constipation - per pt, the injections from last visit worked well and she has been moving her bowels every day - continue current home regimen; lubiprostone 8 mcg BID, docusate 100 mg BID DM w/ gastroparesis - last A1c 11/2023 7.1% - continue home insulin glargine 10u HS; will add SSI- adjust PRN - nausea control as detailed above Leukocytosis -- Resolved Insomnia - continue zolpidem 10 mg HS PRN RLS - continue ropinirole 4mg HS HTN - continue home clonidine 0.1mg daily, hydralazine 25 mg TID, lisinopril 5 mg daily, nifedipine 120mg daily, metoprolol 50 mg daily - BP elevated in the morning despite dc Carbamazepine - Patient asymptomatic - Contuinue to monitor GERD - continue pantoprazole 40 mg BID PAD - continue home plavix 75 mg daily and aspirin 81 mg daily Anxiety - continue home xanax 1mg TID PRN Diet: carb consistent DVT ppx: lovenox Code: full Dispo: May discharge back home once good pain control regimen established Admission and Anticipated Discharge Date Admission Date: February 11, 2024 Supervising Physician Co-Signing Physician Notes Patient seen and examined, chart reviewed, case discussed with Augustine Valderrama, DO and I agree with the assessment and plan as above except as otherwise noted Labs and images reviewed Seen at bedside. Has been refusing OxyContin, has restarted this this morning. Does continue to have pain 4/10 at time of assessment. He is very concerned abo ut dysphagia. Has not had aspiration. Denies stomach pain. Denies wheezing or breathing difficulty. On exam oropharynx is clear and without edema, uvula is midline, palpation of the neck does not reveal any edema/swelling/abnormality. She was pain-free on OxyContin/oxycodone/Tegretol however had significant side effects from this and so carbamazepine was stopped. Oxycodone twice daily continued, continue breakthrough pain control as needed. Requires stable pain control prior to discharge. Agree with above. Subjective Patient seen and evaluated at bedside this morning. No acute events overnight. Patient continues to complain of significant pain. In discussion this am, patient agreeable to try OxyContin which she has been refusing to this point. Otherwise, no acute complaints. Review of Systems Review of Systems: reviewed, per HPI Physical Exam Physical Exam: Constitutional: chronically ill appearing, no acute distress HEENT: NCAT, no conjunctival injection CV: regular rhythm, no murmur appreciated, extremities well-perfused, no LE edema Resp: CTABL, no wheezes/rales/rhonchi appreciated, no increased work of breathing GI: soft, nondistended MSK: evidence of toe amputations Skin: warm, dry, no rash appreciated Neuro: alert, oriented, no focal neurologic deficit appreciated Results & Data Results & Data Vital Signs (Past 12 Hours) Vital Signs Temp Pulse Pulse Resp BP Pulse Ox O2 Del Method 02/16/24 07:54 36.4 C L 79 18 179/72 H 93 Room Air 02/16/24 04:03 36.5 C 72 16 173/73 H 91 Room Air 02/16/24 00:04 78 02/15/24 23:50 36.8 C 80 18 179/81 H 96 Room Air 02/15/24 21:16 36.4 C L 73 14 173/77 H 95 Room Air Resident Activity Tracking Resident Involvement: Resident Care Provided Care Provided: Adult Hospital Medicine (4) Type 2 diabetes mellitus Diabetes mellitus complication status: with other specified complication Diabetes mellitus halfway insulin use: with synchro assembler use Qualified Code(s): E11.69 - Type 2 diabetes mellitus with other specified complication; Z79.4 - manager file (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 (7) Leukocytosis Leukocytosis type: unspecified Qualified Code(s): D72.829 - Elevated white blood cell count, unspecified
[2024-02-16] MEDS: LIDOCAINE 5% 1 PATCH TD SCH (11:02)
--- NOTE | 2024-02-16 12:54 | Billing Data ---
Date of Service February 16, 2024 Coding Level of Care Code 39364 SUB INP/OBS CARE MIN
[2024-02-16] MEDS: diphenhydrAMINE Capsule 25 MG CAP PO ONE (20:31)
--- NOTE | 2024-02-17 09:09 | Hospitalist Progress Note ---
Date of Service February 17, 2024 Assessment & Plan (1) Intractable neuropathic pain of left lower extremity: (2) Gastroparesis: (3) PAD (peripheral artery disease): (4) Type 2 diabetes mellitus: (5) HTN (hypertension): (6) Insomnia: (7) Leukocytosis: Plan Pt is a 58 yo female with PMH of HTN, hx of MRSA infection, DM, HLD, seizures, DM, and GI bleeding presenting due to left leg pain. Acute on chronic pain - pt has extensive hx of abdominal and extremity pain; pain now is in her left lower back, left groin, and left leg Consider likely her pain may be neuropathic in nature or have large contribution from neuropathy. - Pain regimen as detailed below lidocaine patch tylenol 1000mg q8hr scheduled ibuprofen 600mg q8hr scheduled tizanidine 4 mg BID cymbalta 60 mg daily oxycontin 45mg BID (135 MME). oxycodone 7.5mg PRN for breakthrough pain 4-01/20 dilaudid IV 1mg Q3H PRN for breakthrough pain 7-05/22 - Hip XR negative for fractures - Once adequate pain control achieved with PO regimen, will discharge back home. Nausea - Possibly combined effect of likely gastroparesis and pain - Continue IV Compazine and Phenergan Opioid induced constipation - per pt, the injections from last visit worked well and she has been moving her bowels every day - continue current home regimen; lubiprostone 8 mcg BID, docusate 100 mg BID DM w/ gastroparesis - last A1c 11/2023 7.1% - continue home insulin glargine 10u HS; will add SSI- adjust PRN - nausea control as detailed above Leukocytosis -- Resolved Insomnia - continue zolpidem 10 mg HS PRN RLS - continue ropinirole 4mg HS HTN - continue home clonidine 0.1mg daily, hydralazine 25 mg TID, lisinopril 5 mg daily, nifedipine 120mg daily, metoprolol 50 mg daily - Patient asymptomatic - Contuinue to monitor GERD - continue pantoprazole 40 mg BID PAD - continue home plavix 75 mg daily and aspirin 81 mg daily Anxiety - continue home xanax 1mg TID PRN Diet: carb consistent DVT ppx: lovenox Code: full Dispo: December discharge back home once good pain control regimen established Admission and Anticipated Discharge Date Admission Date: February 11, 2024 Supervising Physician Co-Signing Physician Notes Patient seen and examined, chart reviewed, case discussed with Dr. Valderrama and I agree with the assessment and plan as above except as otherwise noted Labs and images reviewed Send are seen at the bedside. Has improved pain control today, although is using IV Dilaudid. Will attempt to transition to p.o. only regimen. She feels that she is near ready for discharge however still transitioning to her oral regimen, her pharmacy is unable to fill scripts for her today, and have not been able to confirm coverage of her oxycodone. Will call today to see if any formulation/dosing to her oxycodone will have improved coverage as this has been a barrier and caused readmissions in the past. Her dysphagia is improving today, suspect GERD. Oropharynx remains clear and without swelling/edema/uvular deflection and breathing remains unlabored/clear. Agree with assessment and management above Subjective Patient seen and evaluated at bedside this morning. No acute events overnight. Patient reports feeling better now on OxyContin BID. Still requiring significant PRN IV Dilaudid. Review of Systems Review of Systems: reviewed, per HPI Physical Exam Physical Exam: Constitutional: chronically ill appearing, no acute distress HEENT: NCAT, no conjunctival injection CV: regular rhythm, no murmur appreciated, extremities well-perfused, no LE edema Resp: CTABL, no wheezes/rales/rhonchi appreciated, no increased work of breathing GI: soft, nondistended MSK: evidence of toe amputations Skin: warm, dry, no rash appreciated Neuro: alert, oriented, no focal neurologic deficit appreciated Results & Data Results & Data Vital Signs (Past 12 Hours) Vital Signs Temp Pulse Pulse Resp BP Pulse Ox O2 Del Method 02/17/24 07:44 36.5 C 74 18 170/70 H 93 Room Air 02/17/24 07:00 67 02/17/24 03:48 36.5 C 71 16 144/69 H 94 Room Air 02/16/24 23:40 36.5 C 69 18 150/61 H 92 Room Air 02/16/24 21:55 78 Resident Activity Tracking Resident Involvement: Resident Care Provided Care Provided: Adult Hospital Medicine (4) Type 2 diabetes mellitus Diabetes mellitus complication status: with other specified complication Diabetes mellitus intermediate accountant insulin use: with assisted use Qualified Code(s): E11.69 - Type 2 diabetes mellitus with other specified complication; Z79.4 - retirement (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 (7) Leukocytosis Leukocytosis type: unspecified Qualified Code(s): D72.829 - Elevated white blood cell count, unspecified
--- NOTE | 2024-02-17 12:18 | Billing Data ---
Date of Service February 17, 2024 Coding Level of Care Code 33168 SUB INP/OBS CARE
--- NOTE | 2024-02-18 07:14 | Hospitalist Progress Note ---
Date of Service February 18, 2024 Assessment & Plan (1) Intractable neuropathic pain of left lower extremity: (2) Gastroparesis: (3) PAD (peripheral artery disease): (4) Type 2 diabetes mellitus: (5) HTN (hypertension): (6) Insomnia: (7) Leukocytosis: Plan Pt is a 58 yo female with PMH of HTN, hx of MRSA infection, DM, HLD, seizures, DM, and GI bleeding presenting due to left leg pain. Acute on chronic pain - pt has extensive hx of abdominal and extremity pain; pain now is in her left lower back, left groin, and left leg Consider likely her pain may be neuropathic in nature or have large contribution from neuropathy. - Pain regimen as detailed below lidocaine patch tylenol 1000mg q8hr scheduled ibuprofen 600mg q8hr scheduled tizanidine 4 mg BID cymbalta 60 mg daily oxycontin 45mg BID (135 MME). oxycodone 10 mg PRN for breakthrough pain 4-610 s/p dilaudid IV 1mg Q3H PRN for breakthrough pain 7-05/22 - Medication hold to asses for PO pain tolerance. Plan to titrate up her PO meds before IV Dilaudid - Hip XR negative for fractures - Once adequate pain control achieved with PO regimen, will discharge back home. Nausea - Possibly combined effect of likely gastroparesis and pain - Continue IV Compazine and Phenergan Opioid induced constipation - per pt, the injections from last visit worked well and she has been moving her bowels every day - continue current home regimen; lubiprostone 8 mcg BID, docusate 100 mg BID DM w/ gastroparesis - last A1c 11/2023 7.1% - continue home insulin glargine 10u HS; will add SSI- adjust PRN - nausea control as detailed above Leukocytosis -- Resolved Insomnia - continue zolpidem 10 mg HS PRN RLS - continue ropinirole 4mg HS HTN - continue home clonidine 0.1mg daily, hydralazine 25 mg TID, lisinopril 5 mg daily, nifedipine 120mg daily, metoprolol 50 mg daily - Patient asymptomatic - Contuinue to monitor GERD - continue pantoprazole 40 mg BID PAD - continue home plavix 75 mg daily and aspirin 81 mg daily Anxiety - continue home xanax 1mg TID PRN Diet: carb consistent DVT ppx: lovenox Code: full Dispo: May discharge back home once good pain control regimen established Admission and Anticipated Discharge Date Admission Date: February 11, 2024 Supervising Physician Co-Signing Physician Notes Attending attestation Pt seen and examined in concert with Dr. Abel. In agreement with the documented findings as noted in the resident documentation with any exceptions or additions as noted here. Patient resting comfortably in bed but very concerned re: level of pain control. Has not been using oxycodone atop oxycontin, instead opting for IV dilaudid for pain control. On examination, S1/S2 nl RRR no MCG. CTAB. Abd NT/ND BS+ve Acute on chronic pain, multifactorial - continue oxycontin baseline medication. Discontinue standing dilaudid order. Encourage oxycodone q4h use with uptitration of dose for pain management with dilaudid PRN based on clinical re- assessment in order to ascertain available PO pain control for present complaint/dispo. Can restart PRN dilaudid if needed, requesting that it d/c in AM to return to previously detailed plan. Else see resident documentation as noted. Subjective No overnight events Patient currently on OxyContin 45 mg BID. Breakthrough medication modified only to Oxycodone 10 mg prn now for transition from IV to PO Will plan to continue optimized dosing during the day Review of Systems Review of Systems: as per HPI Physical Exam Physical Exam: Constitutional: chronically ill appearing, no acute distress HEENT: NCAT, no conjunctival injection CV: regular rhythm, no murmur appreciated, no leg edema Resp: CTABL, no wheezes/rales/rhonchi appreciated, no increased work of breathing GI: soft, nondistended MSK: evidence of toe amputations, right BKA Skin: warm, dry, no rash appreciated Neuro: alert, oriented, no focal neurologic deficit appreciated Results & Data Results & Data Vital Signs (Past 12 Hours) Vital Signs Temp Pulse Pulse Resp BP BP Pulse Ox 02/18/24 05:26 161/80 H 02/18/24 03:40 36.6 C 73 18 183/78 H 94 02/17/24 23:26 68 02/17/24 23:15 36.4 C L 65 16 146/63 H 98 02/17/24 19:29 36.7 C 67 18 121/70 96 O2 Del Method 07/08/24 05:26 02/18/24 03:40 Room Air 02/17/24 23:26 02/17/24 23:15 Room Air 02/17/24 19:29 Room Air Resident Activity Tracking Resident Involvement: Resident Care Provided Care Provided: Adult Hospital Medicine (4) Type 2 diabetes mellitus Diabetes mellitus complication status: with other specified complication Diabetes mellitus custodial insulin use: with assistant terminal manager use Qualified Code(s): E11.69 - Type 2 diabetes mellitus with other specified complication; Z79.4 - [facility] (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 (7) Leukocytosis Leukocytosis type: unspecified Qualified Code(s): D72.829 - Elevated white blood cell count, unspecified
[2024-02-18] MEDS ORDERED: HYDROmorphone INJ 1 MG/ML SYRINGE IV PRN (07:22)
[2024-02-18] MEDS: HYDROmorphone INJ 1 MG/ML SYRINGE IV STA (10:30)
[2024-02-18] MEDS: oxyCODONE HCL IR 5 MG TAB (IMMEDIATE RELEASE) PO PRN (13:05)
[2024-02-18] MEDS: HYDROmorphone INJ 0.5 MG/0.5 ML SYR IV STA (14:53)
--- NOTE | 2024-02-18 15:59 | Electrocardiogram Report ---
Test Reason : Blood Pressure : / mmHG Vent. Rate : 079 BPM Atrial Rate : 079 BPM P-R Int : 160 ms QRS Dur : 098 ms QT Int : 378 ms P-R-T Axes : 060 060 072 degrees QTc Int : 433 ms Normal sinus rhythm Normal ECG When compared with ECG of 10-FEB-2024 20:28, QRS duration has increased Confirmed by Harvinder Guerra ([id number]) on 02/18/2024 3:58:48 PM Referred By: REFERRED SELF Confirmed By:Scot Guerra
[2024-02-18] MEDS: oxyCODONE HCL IR 5 MG TAB (IMMEDIATE RELEASE) PO SCH (17:32)
[2024-02-18] MEDS: HYDROmorphone INJ 0.5 MG/0.5 ML SYR IV PRN (19:02)
--- NOTE | 2024-02-19 06:56 | Hospitalist Progress Note ---
Date of Service February 19, 2024 Assessment & Plan (1) Intractable neuropathic pain of left lower extremity: (2) Gastroparesis: (3) PAD (peripheral artery disease): (4) Type 2 diabetes mellitus: (5) HTN (hypertension): (6) Insomnia: (7) Leukocytosis: (8) Chronic pain: Plan Pt is a 58 yo female with PMH of HTN, hx of MRSA infection, DM, HLD, seizures, DM, and GI bleeding presenting due to left leg pain. Dispo: Current PO Pain regimen: oxycontin 45mg BID and oxycodone 10 mg PRN for breakthrough pain. Pending for authorization for discharge Acute on chronic pain - pt has extensive hx of abdominal and extremity pain; pain now is in her left lower back, left groin, and left leg Consider likely her pain may be neuropathic in nature or have large contribution from neuropathy. - Hip XR negative for fractures - Pain regimen as detailed below lidocaine patch tylenol 1000mg q8hr scheduled ibuprofen 600mg q8hr scheduled tizanidine 4 mg BID cymbalta 60 mg daily oxycontin 45mg BID (135 MME). oxycodone 10 mg PRN for breakthrough pain 4-6/10 s/p dilaudid IV 1mg Q3H PRN for breakthrough pain 7-/10 - Medication hold to asses for PO pain tolerance. Plan to titrate up her PO meds before IV D ilaudid - pain control achieved with PO regimen, will discharge home after authorization Nausea - Possibly combined effect of likely gastroparesis and pain - Continue IV Compazine and Phenergan Opioid induced constipation - per pt, the injections from last visit worked well and she has been moving her bowels every day - continue current home regimen; lubiprostone 8 mcg BID, docusate 100 mg BID, DM w/ gastroparesis - last A1c 11/2023 7.1% - continue home insulin glargine 10u HS; will add SSI- adjust PRN - nausea control as detailed above Leukocytosis -- Resolved Insomnia - continue zolpidem 10 mg HS PRN RLS - continue ropinirole 4mg HS HTN - continue home clonidine 0.1mg daily, hydralazine 25 mg TID, lisinopril 5 mg daily, nifedipine 120mg daily, metoprolol 50 mg daily - Patient asymptomatic - Contuinue to monitor GERD - continue pantoprazole 40 mg BID PAD - continue home plavix 75 mg daily and aspirin 81 mg daily Anxiety - continue home xanax 1mg TID PRN Diet: carb consistent DVT ppx: lovenox Code: full Dispo: December discharge back home once good pain control regimen established Admission and Anticipated Discharge Date Admission Date: February 11, 2024 Subjective No events overnight. Patient seen this AM. Refers good pain control with current PO Oxycodone 10 mg. No IV dilaudid overnight needed. Physical Exam Physical Exam: Constitutional: chronically ill appearing, no acute distress HEENT: NCAT, no conjunctival injection CV: regular rhythm, no murmur appreciated, no leg edema Resp: CTABL, no wheezes/rales/rhonchi appreciated, no increased work of breathing GI: soft, nondistended MSK: evidence of toe amputations, right BKA Skin: warm, dry, no rash appreciated Neuro: alert, oriented, no focal neurologic deficit appreciated Results & Data Results & Data Vital Signs (Past 12 Hours) Vital Signs Temp Pulse Pulse Resp BP Pulse Ox O2 Del Method 02/19/24 03:36 37 C 68 16 155/71 H 93 Room Air 02/18/24 23:25 36.3 C L 66 20 134/68 93 Room Air 02/18/24 22:59 67 02/18/24 20:20 36.2 C L 66 20 116/75 92 Room Air Resident Activity Tracking Resident Involvement: Resident Care Provided Care Provided: Adult Hospital Medicine (4) Type 2 diabetes mellitus Diabetes mellitus complication status: with other specified complication 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
[2024-02-19] MEDS: HYDROmorphone INJ 0.5 MG/0.5 ML SYR IV STA (10:19)
--- NOTE | 2024-02-19 17:07 | Discharge Summary ---
Date of Service February 19, 2024 Admission HPI Per Admitting Provider Pt is a 58 yo female with PMH of HTN, hx of MRSA infection, DM, HLD, seizures, DM, and GI bleeding presenting due to left leg pain. Pt explains this increased pain began Wednesday 01/31 and has progressively worsened since. She has been dealing with this pain for around the last 2 months. It is mostly in her leg lower back, left groin, and down her left leg. It feels like her left leg is burning. She has been taking pain medications at home which used to "take the edge off" but they were no longer working. She is frustrated and worn down explaining that she just wants to know what is causing her pain. She also notes she has been nauseous with some vomiting. Her BM have been regular. In the ER, pt was given dilaudid 1mg x2, oxycodone 5mg x1, ondansetron 4 mg x1, and 500cc of NS. A lidocaine patch was also applied to her lower back. Principal Diagnosis Acute on chronic pain Discharge Exam Constitutional: chronically ill appearing, no acute distress HEENT: NCAT, no conjunctival injection CV: regular rhythm, no murmur appreciated, no leg edema Resp: CTABL, no wheezes/rales/rhonchi appreciated, no increased work of breathing GI: soft, nondistended MSK: evidence of toe amputations, right BKA Skin: warm, dry, no rash appreciated Neuro: alert, oriented, no focal neurologic deficit appreciated Discharge Data Allergies Allergy/AdvReac Type Severity Reaction Status Date / Time morphine Allergy Severe blisters Verified 02/10/24 22:40 in mouth Sulfa (Sulfonamide Allergy Severe rash/swelli Verified 02/10/24 22:40 Antibiotics) ng amoxicillin [From Augmentin] Allergy Intermediate itching/powre Verified 02/10/24 22:40 h ceftriaxone [From Rocephin] Allergy Intermediate Hives Verified 02/10/24 22:40 clavulanic acid Allergy Intermediate itching/power Verified 02/10/24 22:40 [From Augmentin] h erythromycin base Allergy Intermediate Hives Verified 02/10/24 22:40 vancomycin Allergy Intermediate YULIYA Verified 02/10/24 22:40 SYNDROME---CAN TAKE IF VERY SLOW DRIP. adhesive AdvReac Intermediate DERMABOND Verified 02/10/24 22:40 excoriates skin gabapentin AdvReac Intermediate Nausea Verified 02/10/24 22:40 iron [From Venofer] AdvReac Intermediate Hypertensio Verified 02/10/24 22:40 n Consultations 02/10/24 23:16 ED Decision to Admit Stat Ordered Studies 02/15/24 22:[address] [CT head/brain wo con] Urgent Hospital Course (1) Intractable neuropathic pain of left lower extremity: (2) Gastroparesis: (3) PAD (peripheral artery disease): (4) Type 2 diabetes mellitus: (5) HTN (hypertension): (6) Insomnia: (7) Leukocytosis: (8) Chronic pain: Plan Pt is a 58 yo female with PMH of HTN, hx of MRSA infection, DM, HLD, seizures, DM, and GI bleeding presenting due to left leg pain. Acute on chronic pain - pt has extensive hx of abdominal and extremity pain Consider likely her pain may be neuropathic in nature or have large contribution from neuropathy. - Hip XR negative for fractures - Pain regimen as detailed below while inpatient: lidocaine patch tylenol 1000mg q8hr scheduled ibuprofen 600mg q8hr scheduled tizanidine 4 mg BID cymbalta 60 mg daily oxycontin 45mg BID (135 MME). oxycodone 10 mg PRN for breakthrough pain 4-6/10 s/p dilaudid IV 1mg Q3H PRN for breakthrough pain 7-10/10 - Adequate pain control achieved with PO regimen: Oxycodone 10 mg for breakthrough pain q3hr and OxyContin 45 mg BID. Prescription sent to pharmacy today, but patient wanted to leave before the authorization was completed. Nausea - Possibly combined effect of likely gastroparesis and pain - Continue home antiemetic medication Opioid induced constipation - continue current home regimen; lubiprostone 8 mcg BID, docusate 100 mg BID DM w/ gastroparesis - last A1c 11/2023 7.1% - continue home insulin glargine 10u HS - nausea control as detailed above Leukocytosis -- Resolved Insomnia - continue zolpidem 10 mg HS PRN RLS - continue ropinirole 4mg HS HTN - continue home clonidine 0.1mg daily, hydralazine 25 mg TID, lisinopril 5 mg daily, nifedipine 120mg daily, metoprolol 50 mg daily - Patient asymptomatic GERD - continue pantoprazole 40 mg BID PAD - continue home plavix 75 mg daily and aspirin 81 mg daily Anxiety - continue home xanax 1mg TID PRN Diet: carb consistent DVT ppx: lovenox Code: full Dispo: May discharge back home once good pain control regimen established Total Time Total Time Spent Total Time Spent (In Minutes): see attending attestation Discharge Plan Discharge Items Patient Disposition: Home - Self-Care Reason For Visit: UNCONTROLLED PAIN Discharge Diagnosis: chronic pain Activity: Per Instructions section Non-emergency contact: Primary Care Provider Call non-emergency contact if: you have any medication questions and your temperature is above 101 Follow-up/Referrals: Vince Vernon, DO [Primary Care Provider] - (PLEASE CALL YOUR PRIMARY CARE PROVIDER TO SCHEDULE A HOSPITAL DISCHARGE FOLLOW-UP APPOINTMENT WITHIN 7-10 DAYS) Diet: Regular Addtl Attending Provider Instructions: You were in the hospital due to uncontrolled chronic pain. You were treated with IV medication until we got the pain controlled and found a good regimen that work for your pain. Take 1000 mg Tylenol every 8 hours. Take 600 mg Ibuprofen every 8 hours. Take Oxymorphone 40 mg every 12 hours. Take oxycodone 10 mg every 4 hours as needed for break through pain. We sent the following prescription to your pharmacy: * Oxycodone 10 mg every 4 hours as needed for breakthrough pain * Oxymorphone 40 mg twice a day At the time of discharge we had not received approval from insurance for the long acting opioid medication. With shared decision making we decided on discharge without this medication. Case management will reach out to you tomorrow regarding their decision. Would recommend close PCP follow up. Follow-up appointments: Make a follow-up appointment with your PCP within the next week. It is very important that you follow up with them shortly after discharge from the hospital. Keep all your follow-up appointments as already scheduled. If you cannot make an appointment, notify your provider. Medications: Your medication list has been reviewed and reconciled upon discharge to ensure accuracy and continuity of care. An updated list of all your medications is included with your hospital discharge paperwork. Please review this list closely, and make note of any changes. Take your medications as instructed; do not skip a dose of your medicines. Make sure all of your doctors know every medicine you are taking (including [id number] medicines, vitamins, and supplements). Call your primary care provider before taking any new medicines (including cfrc-ruu-xnejahk medicines, vitamins, and supplements), because some of these may interact with your current medications, or may make your symptoms worse. Tell your primary care provider if you cannot afford your medications. CALL 911 OR GO TO THE EMERGENCY DEPARTMENT if you experience any of the following: Sudden, severe abdominal pain or nausea/vomiting Severe chest pain, or chest pain that radiates (moves) to your jaw or arm Sudden, severe shortness of breath or difficulty breathing Thank you for allowing us to participate in your care Pending Studies at Discharge: No Stand-Alone Forms: My [facility] [employer], Smoking Cessation Medications and DC Order Prescriptions: New oxycodone 10 mg tablet 10 mg PO Q4H PRN (Reason: pain) 10 Days Qty: 60 0RF oxymorphone 40 mg tablet extended release 12 hr 40 mg PO Q12H 10 Days Qty: 20 0RF Continued prochlorperazine maleate 5 mg tablet 5 mg PO TID PRN (Reason: Nausea) ropinirole 2 mg Tablet 4 mg PO HS zolpidem 10 mg tablet 10 mg PO HS PRN (Reason: Sleep) Rx Instructions: do not take within 3 hours of opiod pain med insulin lispro 100 unit/mL insulin pen 5 unit SUBCUT TIDM Rx Instructions: plus sliding scale insulin glargine [Lantus Solostar U-100 Insulin] 100 unit/mL (3 mL) insulin pen 10 unit SUBCUT HS metoprolol succinate [Toprol XL] 50 mg tablet extended release 24 hr 50 mg PO QAM albuterol sulfate 90 mcg/actuation HFA aerosol inhaler 2 puff INHALATION QID PRN (Reason: Shortness Of Breath Or Wheezing) pantoprazole 40 mg tablet,delayed release (DR/EC) 40 mg PO BID docusate sodium 100 mg Capsule 100 mg PO BID alprazolam 1 mg tablet 1 mg PO TID PRN (Reason: Anxiety) clopidogrel [Plavix] 75 mg tablet 75 mg PO DAILY Qty: 30 0RF hydralazine 25 mg tablet 25 mg PO TID aspirin 81 mg Tablet,Delayed Release (Dr/Ec) 81 mg PO DAILY nifedipine 60 mg tablet extended release 24hr 120 mg PO DAILY duloxetine 60 mg Capsule,Delayed Release(Dr/Ec) 60 mg PO DAILY Qty: 30 0RF acetaminophen [Athenol] 325 mg tablet 650 mg PO QID Qty: 120 0RF tizanidine 4 mg Tablet 4 mg PO BID Qty: 60 0RF lidocaine 5 % Adhesive Patch,Medicated 1 patch transdermal QAM Qty: 14 0RF clonidine HCl 0.1 mg Tablet 0.1 mg PO QAM Qty: 30 3RF acetaminophen [Tylenol Extra Strength] 500 mg Tablet 1,000 mg PO TID Qty: 90 0RF carbamazepine 200 mg Tablet Extended Release 12 Hr 200 mg PO BID Qty: 60 3RF lisinopril [Zestril] 5 mg Tablet 5 mg PO DAILY Qty: 30 3RF lubiprostone [Amitiza] 8 mcg capsule 8 mcg PO BID Qty: 60 5RF Discharge Orders: Discharge Order (Routine); Ordered 02/19/24 Ordered By: Gretel Pérez Admission Data Admit Date/Time: 02/11/24 01:33 Attending Provider: Harvinder Purvis Admit Provider: Puja Escudero Primary Care Provider: Vince Vernon Other Providers: Jayson Staton Other Interventions: Discharge Summary Assessment (RN) Last Done: 02/19/24 14:29 Supervising Physician Co-Signing Physician Notes Attending attestation Pt seen and examined in concert with Dr. Abel. In agreement with the documented findings as noted in the resident documentation with any exceptions or additions as noted here. Patient reports pain well controlled on present medication regimen and reports that she will be leaving prior to completion of auth for her chronic pain medications because she doesn't want to wait, despite counseling on causes of previous re-admission due to same. On examination, S1/S2 nl RRR no MCG. CTAB. Abd NT/ND BS+ve Acute on chronic pain, multifactorial - prescribed escalated PO regimen 10mg q4 x 10 days to follow up with continuance of ER medication prescribed at 40mg ER which appears to be covered by insurance (though auth not completed prior to discharge). Did well on medication regimen with essential discontinuance of use of PRN hydromorphone. Detailed instructions provided to patient regarding the nature of this regimen - this is for temporary use for pain flares to be returned to baseline dose upon resolution of same in order to avoid PRN dosing of hydromorphone which results in intermittently poorly controlled pain while on service. If this regimen is serviceable, it can be provided on an outpatient basis to avoid admission. Additionally, it can be provided on inpatient admission to minimize use of hydromorphone. Else see resident documentation as noted. Total attending physician time spent with this patient's care on the day of discharge: 40 minutes. Resident Activity Tracking Resident Involvement: Resident Care Provided Care Provided: Adult [facility]
== END 2024-02-19 15:03 | disposition home or self-care (01) | DRG 74 ==
LOC: ED 18:39 → SUATTDRO 02-11 01:33 → 3W 02-11 01:33 → 2W 02-16 00:01
DX: T40.2X5A Adverse effect of other opioids, initial encounter; E78.5 Hyperlipidemia, unspecified; Z91.048 Other nonmedicinal substance allergy status; K21.9 Gastro-esophageal reflux disease without esophagitis; Z88.1 Allergy status to other antibiotic agents; Z79.82 Long term (current) use of aspirin; M79.605 Pain in left leg; Z88.2 Allergy status to sulfonamides; K59.03 Drug induced constipation; Z88.5 Allergy status to narcotic agent; M79.2 Neuralgia and neuritis, unspecified; M43.17 Spondylolisthesis, lumbosacral region; E11.51 Type 2 diabetes mellitus with diabetic peripheral angiopathy without gangrene; Z86.14 Personal history of Methicillin resistant Staphylococcus aureus infection; Z79.899 Other long term (current) drug therapy; Z79.4 Long term (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; I10 Essential (primary) hypertension; G25.81 Restless legs syndrome; G47.00 Insomnia, unspecified; G89.29 Other chronic pain; F41.9 Anxiety disorder, unspecified; E87.1 Hypo-osmolality and hyponatremia; D72.829 Elevated white blood cell count, unspecified; E11.43 Type 2 diabetes mellitus with diabetic autonomic (poly)neuropathy; Z88.8 Allergy status to other drugs, medicaments and biological substances; M43.16 Spondylolisthesis, lumbar region

== ENCOUNTER 2024-06-02 01:28 | Inpatient (IN) ==
[2024-06-02] MEDS: ONDANSETRON INJ 2 MG/ML 2 ML VIAL IV STA ×2 (02:12→03:01)
--- NOTE | 2024-06-02 02:33 | Emergency Department Note ---
Impression & Plan Diffuse abdominal pain, Acute dehydration, Hypokalemia, Intractable vomiting, Lumbar radiculopathy, right admit to the [facility] ED Provider Note NAME: EILEEN ESCOBAR AGE: 59 SEX: Female INFORMANT: Patient ED PROVIDER(S): Talisha Shepherd DO CHIEF COMPLAINT: severe abdominal pain and intractable vomiting PLAN: Disposition: admit to the [facility] MEDICAL DECISION MAKING: this is a 59-year-old female patient with a longstanding history of chronic abdominal pain and opioid use who presents to the emergency department with a 12-day history of intractable abdominal pain and vomiting. The patient states that she is has not been able to keep solids down for the past 12 days. Over the past 48 hours, the pain in her abdomen has become severe and she has now also developed discomfort in her right hip radiating down the right leg. on physical exam, the patient's skin was extremely mottled. She was quite tachypneic and mucous membranes were extremely dry. She was initially quite tachycardic. Laboratory studies revealed moderate leukocytosis with a white count of 17.1. H&H were stable. Potassium was low at 3.0. Renal function was normal. Glucose was 268. Patient was medicated with IV Zofran and IV Dilaudid along with some IV Pepcid. Saline solution. Patient went for CT scan of the abdomen/pelvis which showed no evidence of bowel obstruction or free air. She received additional IV antiemetics such as Zofran and Compazine along with additional IV Dilaudid. Patient's potassium was replaced with an IV K rider. patient did get moderate Relief from her discomfort. I did discuss the case with the [facility], [place] Divisionist. Care/management discussed with: social media community manager and [facility] Triage Nursing notes: reviewed and agree with them. Vital Signs: reviewed and remarkable for tachycardia Chronic Medical/Social Conditions affecting care: chronic constipation and opioid use Prior/ Outside/ External records reviewed: multiple previous medical records were reviewed including inpatient stays. Differential Diagnosis: Small bowel obstruction, dehydration, acute kidney injury, hypokalemia, opioid withdrawal, perforated viscus, SBP Diagnostics, independently interpreted by me: ECG: Sinus tachycardia at [address] segment elevation. NO signs of ischemia. There is no ectopy. Cardiac Monitoring: sinus tachycardia at 115 Imaging studies: CT scan of the abdomen/pelvis: As per stat read HPI: 59 year old Female arrives for evaluation of severe abdominal pain and intractable vomiting. patient has had increasing abdominal pain and vomiting over the past 2 weeks. She has noticed worsening right-sided hip pain that seems to radiate down her right leg.. PAST MEDICAL HISTORY: See Below, PAST SURGICAL HISTORY: See Below, SOCIAL HISTORY: See Below, HOME MEDICATIONS: See list ALLERGIES: see long list VITALS: See Below PHYSICAL EXAMINATION: HEENT: Head - normocephalic and atraumatic. Pupils are equal, round, and reactive to light. Extraocular eye muscles are intact, and sclera are anicteric. Nose - moist nasal mucosa without discharge. Mouth - moist buccal mucosa. Oropharynx is nonerythematous and there is no tonsillar exudate or edema noted. Neck: Supple; no JVD Or cervical lymphadenopathy Heart: tachycardic rate and regular rhythm There is a normal S1 and S2 with no murmurs, clicks, or gallops appreciated. Lungs: Clear to auscultation bilaterally with no wheezes, rales, or rhonchi. Abdomen: Soft moderately distended and exquisitely tender to palpation. There are no palpable pulsatile masses or hepatosplenomegaly. There is no guarding, rigidity, or rebound noted. Extremities: Right hip: There was no reproducible discomfort with palpation over the right hip. There were no skin lesions noted in that area. right sided BKA Skin: Cold and mottled Emergency department course: The patient was evaluated in room B-4. A complete history and physical was performed. An IV lock was initiated and labs were drawn as above. An order was placed for continuous cardiac monitoring. Patient was in a sinus tachycardia at a rate of 115. A twelve-lead EKG was obtained as described above. She was given a dose of IV Zofran and IV Dilaudid for her pain and nausea. She went on to receive a dose of IV Pepcid. Patient had a CT scan of the abdomen/pelvis performed. Upon returning from radiology, she was given another dose of IV Dilaudid along with IV Compazine for the pain and nausea she was still experiencing. Patient remained tachycardic and was bolused with 1 L of normal saline solution. She was given an IV K rider for her hypo-hypokalemia. She continued to complain of nausea and was given another dose of IV Zofran. I discussed the case with the [facility] Hospitalist and they will evaluate for further inpatient care. Past Med/Surg History Problem List (Updated 06/03/24 @ 08:07 by Talisha Shepherd DO) Lumbar radiculopathy, right (Acute) Intractable vomiting (Acute) Hypokalemia (Acute) Acute dehydration (Acute) Diffuse abdominal pain (Acute) Hypomagnesemia Hypokalemia Type 2 diabetes mellitus Nausea and vomiting Swelling of left foot Groin pain, chronic, left Ilioinguinal neuralgia of left side Neural foraminal stenosis of lumbar spine Left L4-5 Opioid dependence (Chronic) Constipation (Acute) Left flank pain Lumbar disc herniation with radiculopathy Back pain (Acute) MCFP (current) use of antithrombotics/antiplatelets (Acute) Acute dehydration (Acute) Abdominal pain (Acute) Acute dehydration (Acute) Elevated troponin (Acute) Diffuse abdominal pain (Acute) Uncontrolled hypertension Acute herpes zoster neuropathy (Acute) Infection due to Rivas catheter MRSA bacteremia Ulcer of second toe of left foot (Acute) Leukocytosis (Acute) Elevated lactic acid level (Acute) Abscess of right axilla Axillary hidradenitis suppurativa (Acute) Vomiting (Acute) Headache (Acute) Constipation (Acute) Diarrhea (Acute) Internal jugular (IJ) vein thromboembolism, acute Anemia Vitamin D deficiency Shoulder pain B12 deficiency Acute leg pain (Acute) Costochondritis Globus pharyngeus Somatic dysfunction of thoracic region Chronic pain syndrome Acute adjustment disorder with mixed anxiety and depressed mood Diarrhea Scapular dyskinesis Injury of left rotator cuff Numbness of upper extremity Status post spinal surgery Gastroparesis (Acute) Vitamin D deficiency Esophagitis History of tobacco use Toe ulcer, right MRSA (methicillin resistant staph aureus) culture positive Rash and nonspecific skin eruption Stye Acute hyperglycemia (Acute) Tenosynovitis of ankle Surgical wound, non healing (Acute) Ankle ulcer due to DM Encounter for pre-operative examination Anxiety Diarrhea Emphysema lung Cellulitis of left foot (Acute) Diabetic foot ulcer (Acute) Acute leg pain (Acute) Iron deficiency anemia History of amputation of great toe Diabetic peripheral neuropathy Depression Nonobstructive atherosclerosis of coronary artery Chronic back pain Medical History Hypertension Groin pain Foot pain Infection of left great toe due to methicillin resistant Staphylococcus aureus (MRSA) Diastolic CHF COVID-19 Osteomyelitis of great toe of left foot Opiate dependence Opiate abuse, continuous Acidosis, lactic Acute dehydration Gastroenteritis Sepsis Shortness of breath Opioid dependence Hypomagnesemia Insomnia 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 No issues per anesthesia postop progress note. Anemia Hyponatremia Cellulitis Peripheral neuropathy Benzodiazepine withdrawal Right second toe ulcer Diabetes mellitus type 2, uncontrolled Hyperlipidemia Seizures Gastritis Numbness of lower extremity Hypertriglyceridemia CAD (coronary artery disease) History of tobacco use Benzodiazepine dependence Diabetic neuropathy Abdominal pain Gastroparesis Esophagitis determined by endoscopy GIB (gastrointestinal bleeding) Insulin dependent diabetes mellitus DM2 (diabetes mellitus, type 2) IDDM, A1c 07/2021-11% Surgical History History of right below knee amputation (12/22/21) Right Below Knee Amputation(Right) - Davon Good MD, FACS History of lumbar surgery History of esophagogastroduodenoscopy (EGD) Family History Mother , age 63 Myocardial infarction Father , age 68 or 69 Myocardial infarction Brother S/P CABG (coronary artery bypass graft) Sister Myocardial infarction x 3; she is 57yo Social History Smoking Status: Former smoker packs per day: 0.5; Second Hand Exposure: No; Do You Dip or Chew Tobacco: No; Hx Alcohol Use: No Hx Substance Use: Yes (marijuana) Prescribed Medications: Marijuana Last Used Substance: Unknown Last Used Substance Other:: Medical marijuana Substance Use Type Other:: Medical marijuana Preferred Language: Serbian Communication Ability: Effective Visual Impairment: No Limitations Hearing Ability: Normal Ship Pilot Dispatcher Required: No Beliefs That Will Affect Care: None marital status: Current Living Situation: Spouse and Family Current Living Situation Comment: lives at home with current occupational status: unemployed 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 Other Information That Helps Us Care for You: No other: raising a grandchild as well; lives in [place] Feels Safe at Home: Yes Safety Concerns: Feels Safe At This Time Diet: diabetic and low salt during the past year weight has: remained stable Assistive Devices: Bedside Commode, Glasses, Walker and Wheelchair Allergies Allergies Allergy/AdvReac Type Severity Reaction Status Date / Time morphine Allergy Severe blisters Verified 02/10/24 22:40 in mouth Sulfa (Sulfonamide Allergy Severe rash/swelli Verified 02/10/24 22:40 Antibiotics) ng amoxicillin [From Augmentin] Allergy Intermediate itching/power Verified 02/10/24 22:40 h ceftriaxone [From Rocephin] Allergy Intermediate Hives Verified 02/10/24 22:40 clavulanic acid Allergy Intermediate itching/power Verified 02/10/24 22:40 [From Augmentin] h erythromycin base Allergy Intermediate Hives Verified 02/10/24 22:40 vancomycin Allergy Intermediate YULIYA Verified 02/10/24 22:40 SYNDROME---CAN TAKE IF VERY SLOW DRIP. adhesive AdvReac Intermediate DERMABOND Verified 02/10/24 22:40 excoriates skin gabapentin AdvReac Intermediate Nausea Verified 02/10/24 22:40 iron [From Venofer] AdvReac Intermediate Hypertensio Verified 02/10/24 22:40 n Home Meds Home Medications Medication Instructions Recorded Confirmed insulin glargine 100 unit/mL (3 10 unit subcut HS 10/17/22 06/02/24 mL) subcutaneous pen (Lantus Solostar U-100 Insulin) albuterol sulfate 90 mcg/actuation 2 puff inhalation QID PRN 05/08/23 06/02/24 aerosol inhaler Shortness Of Breath Or Wheezing alprazolam 1 mg tablet 1 mg PO TID PRN Anxiety 05/08/23 06/02/24 docusate sodium 100 mg capsule 100 mg PO BID 05/08/23 06/02/24 metoprolol succinate 50 mg 50 mg PO QAM 05/08/23 06/02/24 tablet,extended release 24 hr (Toprol XL) pantoprazole 40 mg tablet,delayed 40 mg PO BID 05/08/23 06/02/24 release prochlorperazine maleate 5 mg 5 mg PO TID PRN Nausea 06/13/23 06/02/24 tablet aspirin 81 mg tablet,delayed 81 mg PO DAILY 09/19/23 06/02/24 release hydralazine 25 mg tablet 25 mg PO TID 09/19/23 06/02/24 nifedipine 60 mg tablet,extended 120 mg PO DAILY 09/19/23 06/02/24 release 24 hr duloxetine 60 mg capsule,delayed 60 mg PO DAILY 06/02/24 06/02/24 release insulin aspart 5 unit subcut TIDM 06/02/24 06/02/24 (niacinamide)(U-100) 100 unit/mL(3 mL) subcutaneous pen (Fiasp FlexTouch U-100 Insulin) lisinopril 20 mg tablet 20 mg PO DAILY 06/02/24 06/02/24 quetiapine 50 mg tablet 50 mg PO HS 06/02/24 06/02/24 ropinirole 4 mg tablet 8 mg PO HS 06/02/24 06/02/24 Previous Rx's Medication Instructions Recorded clopidogrel 75 mg tablet (Plavix) 75 mg PO DAILY #30 tabs 05/10/23 lidocaine 5 % topical patch 1 patch transdermal QAM #14 ea 12/13/23 ascorbic acid (vitamin C) 500 mg 500 mg PO QAM #20 tabs 04/03/24 tablet (Vitamin C) clonidine HCl 0.1 mg tablet 0.1 mg PO Q8H #90 tabs 04/03/24 cyanocobalamin (vitamin B-12) 500 1,000 mcg (2 x 500 mcg) PO QAM #30 04/03/24 mcg tablet tabs naloxone 4 mg/actuation nasal spray 4 mg intranasal ONCE PRN opioid 04/03/24 overdose #2 ea oxycodone 20 mg tablet 20 mg PO Q6H PRN pain #12 tabs 04/03/24 polyethylene glycol 3350 17 gram 17 g PO BID #0 ea 04/03/24 oral powder packet (Miralax) pregabalin 100 mg capsule (Lyrica) 100 mg PO TID #90 caps 04/03/24 sennosides 8.6 mg tablet (Senokot) 17.2 mg (2 x 8.6 mg) PO BID PRN 04/03/24 constipation #60 tabs Results & Data (ED) Vital Signs Vital Signs - 24 hr 06/02/24 01:33 06/02/24 01:45 06/02/24 01:45 Temperature 37.2 C 37.2 C Temperature Source Oral Oral Pulse Rate 118 H 120 H Pulse Rate [Left Radial] 120 H Pulse Rate from SpO2 Sensor Pulse Rhythm [Left Radial] Regular Pulse Strength [Left Radial] Normal Respiratory Rate 29 H 24 24 Respiratory Effort / Characteristics Non-Labored Spontaneous Non-Labored Spontaneous Respiratory Depth Normal Normal Respiratory Pattern Regular Regular Blood Pressure 127/96 127/96 Blood Pressure [Right Arm] 127/96 Blood Pressure Mean 110 106 Blood Pressure Mean [Right Arm] 106 Blood Pressure Position Lying Pulse Oximetry 98 99 99 Oxygen Delivery Method Room Air Room Air Sepsis Recent Fever Within 48 Hours No Sepsis New/Unexplained Change in Mental Status No Sepsis Action Taken by Nursing No Action Required 06/02/24 02:16 06/02/24 03:00 06/02/24 03:30 Temperature Temperature Source Pulse Rate 117 H 120 H 108 H Pulse Rate [Left Radial] Pulse Rate from SpO2 Sensor 120 H 108 H Pulse Rhythm [Left Radial] Pulse Strength [Left Radial] Respiratory Rate 25 H 23 14 Respiratory Effort / Characteristics Respiratory Depth Respiratory Pattern Blood Pressure 165/93 H 183/112 H 226/108 H Blood Pressure [Right Arm] Blood Pressure Mean 128 135 167 Blood Pressure Mean [Right Arm] Blood Pressure Position Pulse Oximetry 100 100 100 Oxygen Delivery Method Sepsis Recent Fever Within 48 Hours Sepsis New/Unexplained Change in Mental Status Sepsis Action Taken by Nursing 06/02/24 04:00 06/02/24 04:30 06/02/24 05:30 Temperature Temperature Source Pulse Rate 110 H 120 H 101 H Pulse Rate [Left Radial] Pulse Rate from SpO2 Sensor 110 H 101 H Pulse Rhythm [Left Radial] Pulse Strength [Left Radial] Respiratory Rate 15 18 16 Respiratory Effort / Characteristics Respiratory Depth Respiratory Pattern Blood Pressure 224/99 H 224/102 H 195/88 H Blood Pressure [Right Arm] Blood Pressure Mean 178 166 123 Blood Pressure Mean [Right Arm] Blood Pressure Position Pulse Oximetry 100 94 91 Oxygen Delivery Method Sepsis Recent Fever Within 48 Hours Sepsis New/Unexplained Change in Mental Status Sepsis Action Taken by Nursing Laboratory Data 06/02/24 03:25 06/02/24 15:58 Lab Results 06/02/24 06/02/24 06/02/24 Range/Units 01:42 03:25 04:55 WBC Cancelled 17.13 H RBC Cancelled 6.34 H Hgb Cancelled 14.7 Hct Cancelled 46.1 MCV Cancelled 72.7 L MCH Cancelled 23.2 L MCHC Cancelled 31.9 L RDW Std Deviation Cancelled 39.2 RDW Coeff of Maria Del Carmen Cancelled 15.8 H Plt Count Cancelled 434 H MPV Cancelled 9.4 Immature Gran % (Auto) Cancelled 0.5 Neut % (Auto) Cancelled 86.2 Lymph % (Auto) Cancelled 5.4 [place] % (Auto) Cancelled 7.2 Eos % (Auto) Cancelled 0.5 Baso % (Auto) Cancelled 0.2 Neut # (Auto) Cancelled 14.76 H Lymph # (Auto) Cancelled 0.93 L [place] # (Auto) Cancelled 1.23 H Eos # (Auto) Cancelled 0.08 Baso # (Auto) Cancelled 0.04 Immature Gran # (Auto) Cancelled 0.09 Absolute Nucleated RBC Cancelled Nucleated RBC % (auto) Cancelled Neutrophils % (Manual) Cancelled Band Neutrophils % Cancelled Lymphocytes % (Manual) Cancelled Prolymphocyte % Cancelled Reactive Lymphs % (Man) Cancelled Monocytes % (Manual) Cancelled Eosinophils % (Manual) Cancelled Basophils % (Manual) Cancelled Metamyelocytes % (Man) Cancelled Myelocytes % (Man) Cancelled Promyelocytes % (Man) Cancelled Blast Cells % (Manual) Cancelled Plasma Cell % (Manual) Cancelled Other Cells % Cancelled Nucleated RBC % Cancelled Neutrophils # (Manual) Cancelled Band Neutrophils # Cancelled Total Absolute Neuts Cancelled Lymphocytes # (Manual) Cancelled Prolymphocyte # Cancelled Reactive Lymphs # Cancelled Total Abs Lymphocytes Cancelled Monocytes # (Manual) Cancelled Eosinophils # (Manual) Cancelled Basophils # (Manual) Cancelled Metamyelocytes # (Man) Cancelled Myelocytes # (Manual) Cancelled Promyelocytes # (Man) Cancelled Blast Cells # (Man) Cancelled Plasma Cell # (Manual) Cancelled Other Cells # Cancelled Nucleated RBCs # (Man) Cancelled Hypersegmented Neuts Cancelled Hyposegmented Neuts Cancelled Hypogranular Neuts Cancelled Large Granular Lymphs Cancelled # Lrg Granular Lymphs Cancelled Hairy Cells Cancelled Smudge Cells Cancelled Toxic Granulation Cancelled Toxic Vacuolation Cancelled Dohle Bodies Cancelled Kentrell Rods Cancelled Platelet Estimate Cancelled Hypogranular Platelets Cancelled Giant Platelets Cancelled Platelet Satelliting Cancelled RBC Morphology Cancelled Polychromasia Cancelled Hypochromasia Cancelled Poikilocytosis Cancelled Basophilic Stippling Cancelled Anisocytosis Cancelled Microcytosis Cancelled Macrocytosis Cancelled Spherocytes Cancelled Pappenheimer Bodies Cancelled Sickle Cells Cancelled Target Cells Cancelled Tear Drop Cells Cancelled Ovalocytes Cancelled Stomatocytes Cancelled Alonzo-Renfrow Bodies Cancelled Echinocytes Cancelled Acanthocytes (Spur) Cancelled Rouleaux Cancelled RBC Agglutinates Cancelled Schistocytes Cancelled Sezary Cell Cancelled Sodium Cancelled 133 L Potassium Cancelled 3.0 L Chloride Cancelled 92 L Carbon Dioxide Cancelled 21 Anion Gap Cancelled 20 H BUN Cancelled 16 Creatinine Cancelled 0.89 Est Cr Clr Drug Dosing Cancelled 59.8 eGFR Cancelled 74.18 BUN/Creatinine Ratio Cancelled 18.0 Glucose Cancelled 263 H Lactate 2.4 H* (0.4-2.0) mmol/L Calcium Cancelled 10.5 H Magnesium 1.6 L (1.7-2.4) mg/dl Total Bilirubin Cancelled 1.2 H AST Cancelled 12 L ALT Cancelled 13 Alkaline Phosphatase Cancelled 94 Total Protein Cancelled 8.6 H Albumin Cancelled 4.9 Globulin Cancelled 3.7 Albumin/Globulin Ratio Cancelled 1.3 Lipase Cancelled < 3 L Procalcitonin Cancelled < 0.02 Urine Color Yellow Urine Appearance Clear (Clear) Urine pH 7.0 (4.5-7.5) Ur Specific Barclay 1.031 H (1.000-1.030) Urine Protein 4+ H (Negative) Urine Glucose (UA) 2+ H (Negative) Urine Ketones 4+ H (Negative) Urine Blood 1+ H (Negative) Urine Nitrite Negative (Negative) Urine Bilirubin Negative (Negative) Urine Urobilinogen Negative (Negative) Ur Leukocyte Esterase Negative (Negative) Urine WBC (Auto) 0-5 (0-5) /hpf Urine RBC (Auto) 3-5 H (0-2) /hpf U Hyaline Cast (Auto) >20 H (0-2) /lpf U Epithel Cells (Auto) 3-5 H (0-2) /hpf Urine Bacteria (Auto) None Seen (None Seen) Urine Mucus Present A (None Prsent) Blood Parasites ID Cancelled 06/02/24 Range/Units 05:15 WBC RBC Hgb Hct MCV MCH MCHC RDW Std Deviation RDW Coeff of Maria Del Carmen Plt Count MPV Immature Gran % (Auto) Neut % (Auto) Lymph % (Auto) [place] % (Auto) Eos % (Auto) Baso % (Auto) Neut # (Auto) Lymph # (Auto) [place] # (Auto) Eos # (Auto) Baso # (Auto) Immature Gran # (Auto) Absolute Nucleated RBC Nucleated RBC % (auto) Neutrophils % (Manual) Band Neutrophils % Lymphocytes % (Manual) Prolymphocyte % Reactive Lymphs % (Man) Monocytes % (Manual) Eosinophils % (Manual) Basophils % (Manual) Metamyelocytes % (Man) Myelocytes % (Man) Promyelocytes % (Man) Blast Cells % (Manual) Plasma Cell % (Manual) Other Cells % Nucleated RBC % Neutrophils # (Manual) Band Neutrophils # Total Absolute Neuts Lymphocytes # (Manual) Prolymphocyte # Reactive Lymphs # Total Abs Lymphocytes Monocytes # (Manual) Eosinophils # (Manual) Basophils # (Manual) Metamyelocytes # (Man) Myelocytes # (Manual) Promyelocytes # (Man) Blast Cells # (Man) Plasma Cell # (Manual) Other Cells # Nucleated RBCs # (Man) Hypersegmented Neuts Hyposegmented Neuts Hypogranular Neuts Large Granular Lymphs # Lrg Granular Lymphs Hairy Cells Smudge Cells Toxic Granulation Toxic Vacuolation Dohle Bodies Kentrell Rods Platelet Estimate Hypogranular Platelets Giant Platelets Platelet Satelliting RBC Morphology Polychromasia Hypochromasia Poikilocytosis Basophilic Stippling Anisocytosis Microcytosis Macrocytosis Spherocytes Pappenheimer Bodies Sickle Cells Target Cells Tear Drop Cells Ovalocytes Stomatocytes Alonzo-Renfrow Bodies Echinocytes Acanthocytes (Spur) Rouleaux RBC Agglutinates Schistocytes Sezary Cell Sodium Potassium Chloride Carbon Dioxide Anion Gap BUN Creatinine Est Cr Clr Drug Dosing eGFR BUN/Creatinine Ratio Glucose Lactate 1.9 (0.4-2.0) mmol/L Calcium Magnesium (1.7-2.4) mg/dl Total Bilirubin AST ALT Alkaline Phosphatase Total Protein Albumin Globulin Albumin/Globulin Ratio Lipase Procalcitonin Urine Color Urine Appearance (Clear) Urine pH (4.5-7.5) Ur Specific Barclay (1.000-1.030) Urine Protein (Negative) Urine Glucose (UA) (Negative) Urine Ketones (Negative) Urine Blood (Negative) Urine Nitrite (Negative) Urine Bilirubin (Negative) Urine Urobilinogen (Negative) Ur Leukocyte Esterase (Negative) Urine WBC (Auto) (0-5) /hpf Urine RBC (Auto) (0-2) /hpf U Hyaline Cast (Auto) (0-2) /lpf U Epithel Cells (Auto) (0-2) /hpf Urine Bacteria (Auto) (None Seen) Urine Mucus (None Prsent) Blood Parasites ID Administered Medications Aspirin (Aspirin 81 Mg Ectab) 81 mg PO DAILY RICKY Stop: 07/02/24 09:31 Last Admin: 06/02/24 10:35 Dose: 81 mg Documented By: KAYCE Clonidine HCl (Clonidine Hcl 0.1 Mg Tab) 0.1 mg PO Q8@0000,0800,1600 RICKY Stop: 07/02/24 09:31 Last Admin: 06/03/24 00:11 Dose: Not Given Documented By: Admin: 06/02/24 16:13 Dose: Not Given Documented By: Admin: 06/02/24 10:36 Dose: 0.1 mg Documented By: KAYCE Clopidogrel Bisulfate (Clopidogrel Bisulfate 75 Mg Tab) 75 mg PO DAILY RICKY Stop: 07/02/24 09:31 Last Admin: 06/02/24 10:36 Dose: 75 mg Documented By: KAYCE Docusate Sodium (Docusate Sodium 100 Mg Cap) 100 mg PO BID RICKY Stop: 07/02/24 09:31 Last Admin: 06/02/24 20:58 Dose: 100 mg Documented By: Admin: 06/02/24 10:58 Dose: 100 mg Documented By: KAYCE Duloxetine HCl (Duloxetine Hcl 60 Mg Cap) 60 mg PO DAILY RICKY Stop: 07/02/24 09:31 Last Admin: 06/02/24 10:36 Dose: 60 mg Documented By: KAYCE Heparin Sodium (Porcine) (Heparin Sod 5,000 Unit/0.5 Ml Vial) 5,000 units SQ Q12 RICKY Stop: 07/02/24 20:59 Last Admin: 06/02/24 20:59 Dose: 5,000 units Documented By: SUDEEP Hydralazine HCl (Hydralazine Hcl 25 Mg Tab) 25 mg PO TID RICKY Stop: 07/02/24 09:31 Last Admin: 06/02/24 21:00 Dose: 25 mg Documented By: Admin: 06/02/24 14:09 Dose: Not Given Documented By: Admin: 06/02/24 10:36 Dose: 25 mg Documented By: KAYCE Hydromorphone HCl (Hydromorphone Inj 1 Mg/Ml Syringe) 1 mg IV Q3H PRN PRN Reason: Severe Pain (7,8,9,10) on NRS Stop: 06/16/24 09:31 Last Admin: 06/03/24 05:03 Dose: 1 mg Documented By: Admin: 06/03/24 01:17 Dose: 1 mg Documented By: Admin: 06/02/24 20:59 Dose: 1 mg Documented By: Admin: 06/02/24 17:41 Dose: 1 mg Documented By: Admin: 06/02/24 11:59 Dose: 1 mg Documented By: KAYCE Pantoprazole Sodium (Protonix) 40 mg in 10 mls @ 5 mls/min IV BID RICKY Stop: 07/02/24 20:59 Last Admin: 06/02/24 21:10 Dose: 5 mls/min Documented By: SUDEEP Acetaminophen (Ofirmev) 1,000 mg in 100 mls @ 400 mls/hr IV Q8H PRN PRN Reason: Fever/Mild Pain (Pain 1,2,3) Stop: 06/05/24 09:31 Last Infusion: 06/02/24 10:35 Dose: Infused Documented By: Admin: 06/02/24 09:59 Dose: 400 mls/hr Documented By: KAYCE Prochlorperazine 5 mg/ Syringe 5 mls @ 5 mls/min IV Q6H PRN PRN Reason: Nausea And Vomiting Stop: 07/02/24 12:01 Last Admin: 06/02/24 13:36 Dose: 5 mls/min Documented By: KAYCE Insulin Aspart (Insulin Aspart Per Unit Charge) 0 units SC ACHS [facility] Stop: 07/02/24 11:29 Last Admin: 06/02/24 21:00 Dose: 1 units Documented By: SUDEEP Co-signed By: ANGELA Admin: 06/02/24 17:38 Dose: Not Given Documented By: Admin: 06/02/24 12:15 Dose: 3 units Documented By: KAYCE Co-signed By: HANSA Insulin Glargine (Lantus Per Unit Charge) 5 units SQ BID [facility] Stop: 07/02/24 20:59 Last Admin: 06/02/24 21:00 Dose: 5 units Documented By: SUDEEP Co-signed By: ANGELA Lisinopril (Lisinopril 20 Mg Tab) 20 mg PO DAILY RICKY Stop: 07/02/24 09:31 Last Admin: 06/02/24 10:36 Dose: 20 mg Documented By: KAYCE Metoprolol Succinate (Metoprolol Succ 50mg Ext Rel Tab) 50 mg PO QAM RICKY Stop: 07/02/24 09:31 Last Admin: 06/02/24 10:36 Dose: 50 mg Documented By: KAYCE Nifedipine (Nifedipine Extended Rel 30 Mg Tabcr) 120 mg PO DAILY RICKY Stop: 07/02/24 09:31 Last Admin: 06/02/24 10:35 Dose: 120 mg Documented By: KAYCE Ondansetron HCl (Ondansetron Inj 2 Mg/Ml 2 Ml Vial) 4 mg IV Q6H PRN PRN Reason: Nausea Stop: 07/02/24 09:31 Last Admin: 06/02/24 17:40 Dose: 4 mg Documented By: Admin: 06/02/24 09:58 Dose: 4 mg Documented By: KAYCE Polyethylene Glycol (Polyethylene (Miralax) 17 Gm Pack) 17 gm PO BID RICKY Stop: 07/02/24 09:31 Last Admin: 06/02/24 20:59 Dose: 17 gm Documented By: Admin: 06/02/24 10:58 Dose: 17 gm Documented By: KAYCE Pregabalin (Pregabalin 100 Mg Cap) 100 mg PO TID RICKY Stop: 07/02/24 09:31 Last Admin: 06/02/24 20:58 Dose: 100 mg Documented By: Admin: 06/02/24 13:36 Dose: 100 mg Documented By: Admin: 06/02/24 10:57 Dose: 100 mg Documented By: KAYCE Quetiapine Fumarate (Quetiapine Fumarate 25 Mg Tablet) 50 mg PO HS RICKY Stop: 07/02/24 20:59 Last Admin: 06/02/24 21:12 Dose: 50 mg Documented By: SUDEEP Sennosides (Senna 8.6 Mg Tab) 17.2 mg PO BID PRN PRN Reason: constipation Stop: 07/02/24 09:31 Last Admin: 06/02/24 20:58 Dose: 17.2 mg Documented By: SUDEEP Discontinued Medications Hydromorphone HCl (Hydromorphone Inj 1 Mg/Ml Syringe) 1 mg IV NOW STA Stop: 06/02/24 02:45 Last Admin: 06/02/24 02:57 Dose: 1 mg Documented By: HOMA Hydromorphone HCl (Hydromorphone Inj 1 Mg/Ml Syringe) 1 mg IV NOW STA Stop: 06/02/24 04:15 Last Admin: 06/02/24 04:18 Dose: 1 mg Documented By: HOMA Hydromorphone HCl (Hydromorphone Inj 1 Mg/Ml Syringe) 1 mg IV NOW STA Stop: 06/02/24 08:23 Last Admin: 06/02/24 08:30 Dose: 1 mg Documented By: WILDA Sodium Chloride (Nss) 1,000 mls @ 999 mls/hr IV .Q1H1M ONE Stop: 06/02/24 03:46 Last Infusion: 06/02/24 04:06 Dose: Infused Documented By: Admin: 06/02/24 02:57 Dose: 999 mls/hr Documented By: HOMA Famotidine (Pepcid 20mg Iv Push) 20 mg in 5 mls @ 2.5 mls/min IV NOW STA Stop: 06/02/24 05:20 Last Admin: 06/02/24 05:52 Dose: 2.5 mls/min Documented By: HOMA Prochlorperazine 5 mg/ Syringe 5 mls @ 5 mls/min IV ONE ONE Stop: 06/02/24 05:20 Last Admin: 06/02/24 06:14 Dose: 5 mls/min Documented By: HOMA Potassium Chloride (K Blas / Wtr) 10 meq in 100 mls @ 100 mls/hr IV ONE ONE Stop: 06/02/24 06:54 Last Infusion: 06/02/24 08:27 Dose: Infused Documented By: Admin: 06/02/24 06:14 Dose: 100 mls/hr Documented By: HOMA Potassium Chloride/Sodium Chloride (Normal Saline W/20 Meq Kcl) 20 meq in 1,000 mls @ 60 mls/hr IV .[id number] RICKY Stop: 06/02/24 17:19 Last Infusion: 06/02/24 19:20 Dose: Infused Documented By: Admin: 06/02/24 10:34 Dose: 60 mls/hr Documented By: KAYCE Magnesium Sulfate/Dextrose (Magnesium Sulfate / D5w) 1 gm in 100 mls @ 50 mls/hr IV ONE ONE Stop: 06/02/24 11:14 Last Infusion: 06/02/24 12:06 Dose: Infused Documented By: Admin: 06/02/24 09:58 Dose: 50 mls/hr Documented By: KAYCE Pantoprazole Sodium (Protonix) 40 mg in 10 mls @ 5 mls/min IV NOW ONE Stop: 06/02/24 10:52 Last Admin: 06/02/24 11:59 Dose: 5 mls/min Documented By: KAYCE Influenza Virus Vacc Triv Types A&B (Influenza Vacc [id number](6m+)/Pf (Iiv3) 0.5ml Syr) 0.5 ml IM .ONCE ONE Stop: 06/02/24 09:50 Last Admin: 06/02/24 20:58 Dose: Not Given Documented By: SUDEEP Ioversol (Optiray 320 100ml) 100 ml IV ONCE ONE Stop: 06/02/24 04:50 Last Admin: 06/02/24 04:49 Dose: 93 ml Documented By: KOBI Ondansetron HCl (Ondansetron Inj 2 Mg/Ml 2 Ml Vial) 4 mg IV NOW STA Stop: 06/02/24 02:03 Last Admin: 06/02/24 02:12 Dose: 4 mg Documented By: HOMA Ondansetron HCl (Ondansetron Inj 2 Mg/Ml 2 Ml Vial) 4 mg IV NOW STA Stop: 06/02/24 02:45 Last Admin: 06/02/24 04:22 Dose: 4 mg Documented By: HOMA Pneumococcal 20-Valent Conj Vacc (Pneumococcal Vaccine (Pcv20) 20-April Conj-Dip Crm/Pf 0.5 Ml Syr) 0.5 ml IM .ONCE ONE Stop: 06/02/24 09:50 Last Admin: 06/02/24 20:58 Dose: Not Given Documented By: SUDEEP Imaging Data Radiologist's Impression: Abdomen/Pelvis CT 06/02/24 04:03 Exam(s): CT ABDOMEN + PELVIS With Contrast IV Amt: 93 ML OPTIRAY 320 EXAM: CT Abdomen and Pelvis With Intravenous Contrast CLINICAL HISTORY: Reason for exam: RLQ abd pain. TECHNIQUE: Axial computed tomography images of the abdomen and pelvis with intravenous contrast. CTDI is 19.53 mGy and DLP is 923.5 mGy-cm. Automated exposure control was utilized for the study. A dose lowering technique was utilized adhering to the principles of ALARA. CONTRAST: Patient received 93 ML OPTIRAY 320 of IV contrast COMPARISON: No relevant prior studies available. FINDINGS: Lung bases: Unremarkable. No mass. No consolidation. Mediastinum: 2 thoracic esophageal wall thickening, suggestive of reflux esophagitis. Small hiatus hernia. ABDOMEN: Liver: Unremarkable. No mass. Gallbladder and bile ducts: Cholecystectomy. No ductal dilation. Pancreas: Unremarkable. No mass. No ductal dilation. Spleen: Unremarkable. No splenomegaly. Adrenals: Unremarkable. No mass. Kidneys and ureters: Unremarkable. No solid mass. No hydronephrosis. Stomach and bowel: Unremarkable. No obstruction. No mucosal thickening. PELVIS: Appendix: The appendix is not visualized. Bladder: Unremarkable. No mass. Reproductive: Unremarkable as visualized. ABDOMEN and PELVIS: Intraperitoneal space: Unremarkable. No free air. No significant fluid collection. Bones/joints: Grade 1 L4/5 spondylolisthesis. Mild degenerative disc space narrowing seen at L4/5 and L5/S1 junction. No acute fracture. No dislocation. L5/S1 posterior spinal fusion. Vasculature: Unremarkable. No abdominal aortic aneurysm. Lymph nodes: Unremarkable. No enlarged lymph nodes. IMPRESSION: 1. No acute abdominal process identified. Nonvisualized appendix. 2. Distal thoracic esophageal wall thickening which could be from reflux esophagitis Electronically signed by: Hasmukh Quintana MD 06/02/24 05:47 AM Discharge Plan Visit Data Chief Complaint: GI Assessment ED Provider: Talisha Shepherd Discharge Problem: Diffuse abdominal pain, Acute dehydration, Hypokalemia, Intractable vomiting, Lumbar radiculopathy, right Patient Disposition: Admitted As Inpatient Discharge Instructions Interventions: ED Discharge Assessment Last Done: 06/02/24 09:21
[2024-06-02] MEDS: HYDROmorphone INJ 1 MG/ML SYRINGE IV STA ×3 (02:57→08:30)
[2024-06-02] MEDS: SODIUM CHLORIDE 0.9% 1,000 ML IV ONE (02:57)
[2024-06-02 03:40] LABS: Basophils # (auto) 0.04 K/uL (0.00-0.20); Basophils % (auto) 0.2 %; Eosinophils # (auto) 0.08 K/uL (0.00-0.50); Eosinophils % (auto) 0.5 %; Hematocrit (blood only) 46.1 % (37.0-47.0); Hemoglobin 14.7 g/dl (12.0-16.0); Immature Granulocytes # (auto) 0.09 K/uL (0.01-0.20); Immature Granulocytes % (auto) 0.5 %; Lymphocytes # (auto) 0.93 K/uL (1.20-3.40); Lymphocytes % (auto) 5.4 %; Mean Corpuscular Hemoglobin 23.2 pg (25.0-34.0); Mean Corpuscular Hgb Conc 31.9 g/dL (32.0-36.0); Mean Corpuscular Volume 72.7 fL (80.0-100.0); Mean Platelet Volume 9.4 fL (9.4-12.4); Monocytes # (auto) 1.23 K/uL (0.11-0.59); Monocytes % (auto) 7.2 %; Neutrophils # (auto) 14.76 K/uL (1.40-6.50); Neutrophils % (auto) 86.2 %; Platelet Count 434 K/uL (130-400); RDW Coefficient of Variation 15.8 % (11.5-14.5); RDW Standard Deviation 39.2 fL (36.4-46.3); Red Blood Count 6.34 M/uL (4.20-5.40); White Blood Count 17.13 K/ul (4.8-10.8)
[2024-06-02 03:57] LABS: Anion Gap 20 (3-11); Blood Urea Nitrogen 16 mg/dl (6-23); Calcium 10.5 mg/dl (8.6-10.3); Carbon Dioxide 21 mmol/L (21-32); Chloride 92 mmol/L (98-107); Creatinine Clr Calc Pharmacy 59.8 ml/min; Glucose 263 mg/dl (70-99(Fasting)); Sodium 133 mmol/L (136-145)
[2024-06-02 04:11] LABS: Alanine Aminotransferase 13 U/L (7-52); Albumin Globulin Ratio 1.3 (0.9-2); Albumin Level 4.9 gm/dl (3.4-5.0); Alkaline Phosphatase 94 U/L (34-104); Aspartate Aminotransferase 12 U/L (13-39); Bilirubin,Total 1.2 mg/dl (0.2-1.0); Globulin 3.7 gm/dl (2.5-4.0); Lipase < 3 U/L (11-82); Total Protein 8.6 gm/dl (6.0-8.3)
[2024-06-02] MEDS: OPTIRAY 320 100ml IV ONE (04:49)
--- NOTE | 2024-06-02 05:47 | CT Scan Report ---
Exam(s): CT ABDOMEN + PELVIS With Contrast IV Amt: 93 ML OPTIRAY 320 EXAM: CT Abdomen and Pelvis With Intravenous Contrast CLINICAL HISTORY: Reason for exam: RLQ abd pain. TECHNIQUE: Axial computed tomography images of the abdomen and pelvis with intravenous contrast. CTDI is 19.53 mGy and DLP is 923.5 mGy-cm. Automated exposure control was utilized for the study. A dose lowering technique was utilized adhering to the principles of ALARA. CONTRAST: Patient received 93 ML OPTIRAY 320 of IV contrast COMPARISON: No relevant prior studies available. FINDINGS: Lung bases: Unremarkable. No mass. No consolidation. Mediastinum: 2 thoracic esophageal wall thickening, suggestive of reflux esophagitis. Small hiatus hernia. ABDOMEN: Liver: Unremarkable. No mass. Gallbladder and bile ducts: Cholecystectomy. No ductal dilation. Pancreas: Unremarkable. No mass. No ductal dilation. Spleen: Unremarkable. No splenomegaly. Adrenals: Unremarkable. No mass. Kidneys and ureters: Unremarkable. No solid mass. No hydronephrosis. Stomach and bowel: Unremarkable. No obstruction. No mucosal thickening. PELVIS: Appendix: The appendix is not visualized. Bladder: Unremarkable. No mass. Reproductive: Unremarkable as visualized. ABDOMEN and PELVIS: Intraperitoneal space: Unremarkable. No free air. No significant fluid collection. Bones/joints: Grade 1 L4/5 spondylolisthesis. Mild degenerative disc space narrowing seen at L4/5 and L5/S1 junction. No acute fracture. No dislocation. L5/S1 posterior spinal fusion. Vasculature: Unremarkable. No abdominal aortic aneurysm. Lymph nodes: Unremarkable. No enlarged lymph nodes. IMPRESSION: 1. No acute abdominal process identified. Nonvisualized appendix. 2. Distal thoracic esophageal wall thickening which could be from reflux esophagitis Electronically signed by: Hasmukh Quintana MD 06/02/24 05:47 AM
[2024-06-02] MEDS: FAMOTIDINE 20MG IV PUSH 20 MG/5 ML SYR IV STA (05:52)
[2024-06-02] MEDS: POTASSIUM CHLORIDE / WTR 10 MEQ/100 ML PLCT IV ONE (06:14)
[2024-06-02] MEDS: PROCHLORPERAZINE 5 MG in SYRINGE 4 ML IV ONE (06:14)
[2024-06-02 06:37] LABS: Appearance Urine Clear (Clear); Bacteria Urine Automated None Seen (None Seen); Bilirubin Urine Negative (Negative); Blood Urine 1+ (Negative); Cast Urine Automated >20 /lpf (0-2); Color Urine Yellow; Glucose Urine UA 2+ (Negative); Ketones Urine 4+ (Negative); Leukocyte Esterase Urine Negative (Negative); Mucus Urine Present (None Prsent); Nitrite Urine Negative (Negative); Protein Urine 4+ (Negative); Specific Gravity Urine 1.031 (1.000-1.030); Urobilinogen Urine Negative (Negative); WBC Urine Automated 0-5 /hpf (0-5)
--- NOTE | 2024-06-02 08:05 | History & Physical Report ---
<Statement entered by Mona Champagne MD - 06/02/24 14:59> I have reviewed vital signs, chart notes, labs and imaging. I have personally seen, evaluated and examined the patient. I have also discussed the management of the patient with the [facility] and I agree with the exam findings documented in the history and physical examination and the documented assessment and plan unless otherwise stated below. On my exam Mariana is awake and alert appears much more comfortable than described in the ED her mucous membranes are dry she remains tachycardic without murmur, abdomen is soft diffusely tender to palpation without RRG nondistended and bowel tones are present. She is status post right lower extremity BKA her left lower extremity is now warm and well-perfused previously described mottling has resolved. she has no peripheral edema is not clear what precipitated her recurrence of abdominal pain nausea and vomiting approximately 10 days ago. She initially thought she was constipated however the symptoms did not improve with treating her constipation. She has had very poor oral intake and for the last 2 or 3 days has really been consistently vomiting not keeping down fluids or any of her medications. Overall it seems stereotypical of one of her usual flares of abdominal pain nausea and vomiting. She does have element of opioid withdrawal at this point. She is opioid dependent for chronic pain and typically takes oxycodone 20 mg tablets which were recently filled she has up to 6/day. She is hypertensive which relates to uncontrolled pain and missing her oral medications, this improved significantly this afternoon after pain medicines nausea medicines and taking her oral medications. I do not think that she has an infection rather lab abnormalities probably reflect severe dehydration and volume depletion. This includes leukocytosis, mild hyponatremia, mild hypercalcemia. I reviewed her chest x-ray and it is clear without evidence of pneumonia. contrast CT of the abdomen is notable for for distal esophagitis. Urinalysis was negative. Procalcitonin was negative. LFTs and lipase were unremarkable. Treating with IV fluids, IV antiemetics, judicious IV hydromorphone, resume oxycodone when tolerating p.o. Resume all of her usual antihypertensives. Treat her esophagitis with IV PPI PPI twice daily. She is also having some pain in low back and radiating down right buttock/hip and upper thigh consistent with lumbar radicular pain. She has had extensive spinal imaging on prior admissions. Date of Service June 02, 2024 Assessment & Plan (1) Acute dehydration: Plan: Volume contracted on arrival Patient reports she has not been able to tolerate solids x 12 days, and is only able to keep down some fluids NSS 1000 mL IV x 1 given in the ED Continue gentle IVF with NSS + 20mEq K (500mL) Will defer further fluids at this time in the setting of national IVF shortage, and reassess Encourage p.o. fluid intake as tolerated A.m. CBC, BMP, Mag (2) Abdominal pain: Plan: Acute on chronic IV acetaminophen and Dilaudid as needed for pain control Heat application with K-pad as needed (3) Nausea and vomiting: Plan: IV antiemetics as needed; QTc okay at 488 on arrival (4) Constipation: Plan: Continue home bowel regimen Additional MiraLAX as needed in the setting of opioid use (5) Uncontrolled hypertension: Plan: Patient is been unable to tolerate her p.o. antihypertensives at home due to vomiting Restart clonidine, hydralazine, lisinopril, nifedipine, and metoprolol as tolerated PCU status, with plan to add on IV antihypertensives if needed (6) Type 2 diabetes mellitus: Plan: Last A1c at 7.4% on 03/01/2024 Glucose 264 on admission Patient normally takes Lantus 10u HS, but has not been taking over the past 3-4 days due to poor oral intake We will give Lantus 5u BID Loose SSI with target BSG range 120-150mg/dL, CF 50, carb ratio 15 Clear liquid diet for now, and advance to T2DM diet BSG q6h for now Adjust regimen as needed AM A1c (7) Hypokalemia: Plan: Mild; K 3.0 on arrival K rider 10mEq x 1 NSS + 20mEq K Trend BMP (8) Hypomagnesemia: Plan: Mild; Mag 1.6 on arrival Suspect secondary to GI losses Magnesium sulfate 1 g IV x 1 Despite low mag, will continue patient on Protonix 40 mg IV BID due to GI symptoms Recheck a.m. mag (9) Leukocytosis: Plan: Leukocytosis 17.13 with a neutrophil predominance; afebrile Procalcitonin WNL Patient reports negative home test for COVID/flu the week prior to arrival (was having reported low-grade fever of 99 F) No clear source on arrival UA without infection CXR ordered, pending ?Viral GI illness vs stress demargination Elevated WBC count on prior admissions Blood cultures drawn in the ED Will defer antibiotics for now and reassess; continue to trend CBC Plan Disposition: Admit to PCU telemetry Full code Clear liquid diet for now, then advance to T2DM diet as tolerated VTE PPx: SCDs; hold chemical DVT PPx in the setting of hematemesis for 24 hours (please add on chemical DVT PPx for extended stay) History of Present Illness Chief Complaint: GI Assessment Primary Care Provider: Vince Young Vernon Mariana is a 59-year-old female with PMH of gastroparesis, diabetic peripheral neuropathy, chronic pain syndrome, adjustment disorder, anxiety, depression, MRSA bacteremia, and uncontrolled hypertension. She presented on 06/02 for abdominal pain, nausea, vomiting, and constipation. The pain came on gradually, and started approximately 1 week ago on Saturday 05/26. She saw her family doctor, and was told she might be dehydrated. PCP recommended increasing p.o. intake as tolerated, but patient did not see improvement. Patient also was trying to avoid the hospital, as it was her [birth year], and she did not want to spend in the hospital. Now, she rates her abdominal pain 05/22 on arrival. It is located around the umbilicus, and she characterizes it as someone "tying a knot" in her stomach and pulling. She reports she has not been tolerating solids for the past 12 days, and has only been able to minimally keep down liquids. She also reports she has had significant nausea and vomiting at home, and reports episodes of hematemesis (initially coffee-ground's, but did have an episode of bright red blood in vomit). Her last BM was yesterday. She also reports that she has had a low-grade fever intermittently (99 F) that began on Sunday 05/27. She is also had associated chills and night sweats. Additionally, she reports that she feels like her chest is "on fire" from throwing up so much. She has been unable to sleep over the past 3 nights. She has been unable to keep down her regular medications, and reports that she has not taken her long-acting insulin in 3 to 4 days due to decreased oral intake. Patient is a former tobacco cigarette smoker, but quit 3 months ago. She does have a medical marijuana card which she uses for the pain. She denies alcohol use or any other recreational drug use. No PMH of DVT/PE. Additionally, she reports that she has pain in her lower back radiating to her right hip that started 2 days ago; she characterizes this as a "stabbing" pain that comes in waves. She has been trying to take Flexeril and oxycodone (20 mg) at home for the pain, but is unable to keep these medications down. She denies any recent falls, or injuries to the abdomen/flank/pelvis/back. Patient is hypertensive at 176/88 and tachycardic at 103 bpm at time of admission. ED course: Zofran 4 mg IV x 2 Dilaudid 1 mg IV x 2 NSS 1000 mL IV Famotidine 20 mg IV Prochlorperazine 5 mg IV K rider 10 mEq IV ROS: Patient endorses low-grade fever, chills, night-sweats, dizziness/lightheadedness when up on feet, generalized fatigue, heartburn/indigestion, cough, abdominal pain, N/V, hematemesis, constipation, dark urine, lower back pain, and decreased urinary frequency. Patient denies chest pain, SOB, hemoptysis, pleuritic CP, burning with urination, or dysuria. Allergies Allergy/AdvReac Type Severity Reaction Status Date / Time morphine Allergy Severe blisters Verified 02/10/24 22:40 in mouth Sulfa (Sulfonamide Allergy Severe rash/swelli Verified 02/10/24 22:40 Antibiotics) ng amoxicillin [From Augmentin] Allergy Intermediate itching/power Verified 02/10/24 22:40 h ceftriaxone [From Rocephin] Allergy Intermediate Hives Verified 02/10/24 22:40 clavulanic acid Allergy Intermediate itching/power Verified 02/10/24 22:40 [From Augmentin] h erythromycin base Allergy Intermediate Hives Verified 02/10/24 22:40 vancomycin Allergy Intermediate YULIYA Verified 02/10/24 22:40 SYNDROME---CAN TAKE IF VERY SLOW DRIP. adhesive AdvReac Intermediate DERMABOND Verified 02/10/24 22:40 excoriates skin gabapentin AdvReac Intermediate Nausea Verified 02/10/24 22:40 iron [From Venofer] AdvReac Intermediate Hypertensio Verified 02/10/24 22:40 n Home Medications Medication Instructions Recorded Confirmed Type insulin glargine 100 unit/mL (3 10 unit subcut HS 10/17/22 06/02/24 History mL) subcutaneous pen (Lantus Solostar U-100 Insulin) albuterol sulfate 90 mcg/actuation 2 puff inhalation QID PRN 05/08/23 06/02/24 History aerosol inhaler Shortness Of Breath Or Wheezing alprazolam 1 mg tablet 1 mg PO TID PRN Anxiety 05/08/23 06/02/24 History docusate sodium 100 mg capsule 100 mg PO BID 05/08/23 06/02/24 History metoprolol succinate 50 mg 50 mg PO QAM 05/08/23 06/02/24 History tablet,extended release 24 hr (Toprol XL) pantoprazole 40 mg tablet,delayed 40 mg PO BID 05/08/23 06/02/24 History release clopidogrel 75 mg tablet (Plavix) 75 mg PO DAILY #30 tabs 05/10/23 06/02/24 Rx prochlorperazine maleate 5 mg 5 mg PO TID PRN Nausea 06/13/23 06/02/24 History tablet aspirin 81 mg tablet,delayed 81 mg PO DAILY 09/19/23 06/02/24 History release hydralazine 25 mg tablet 25 mg PO TID 09/19/23 06/02/24 History nifedipine 60 mg tablet,extended 120 mg PO DAILY 09/19/23 06/02/24 History release 24 hr lidocaine 5 % topical patch 1 patch transdermal QAM #14 ea 12/13/23 06/02/24 Rx ascorbic acid (vitamin C) 500 mg 500 mg PO QAM #20 tabs 04/03/24 06/02/24 Rx tablet (Vitamin C) clonidine HCl 0.1 mg tablet 0.1 mg PO Q8H #90 tabs 04/03/24 06/02/24 Rx cyanocobalamin (vitamin B-12) 500 1,000 mcg (2 x 500 mcg) PO QAM #30 04/03/24 06/02/24 Rx mcg tablet tabs naloxone 4 mg/actuation nasal spray 4 mg intranasal ONCE PRN opioid 04/03/24 06/02/24 Rx overdose #2 ea oxycodone 20 mg tablet 20 mg PO Q6H PRN pain #12 tabs 04/03/24 06/02/24 Rx polyethylene glycol 3350 17 gram 17 g PO BID #0 ea 04/03/24 06/02/24 Rx oral powder packet (Miralax) pregabalin 100 mg capsule (Lyrica) 100 mg PO TID #90 caps 04/03/24 06/02/24 Rx sennosides 8.6 mg tablet (Senokot) 17.2 mg (2 x 8.6 mg) PO BID PRN 04/03/24 06/02/24 Rx constipation #60 tabs duloxetine 60 mg capsule,delayed 60 mg PO DAILY 06/02/24 06/02/24 History release insulin aspart 5 unit subcut TIDM 06/02/24 06/02/24 History (niacinamide)(U-100) 100 unit/mL(3 mL) subcutaneous pen (Fiasp FlexTouch U-100 Insulin) lisinopril 20 mg tablet 20 mg PO DAILY 06/02/24 06/02/24 History quetiapine 50 mg tablet 50 mg PO HS 06/02/24 06/02/24 History ropinirole 4 mg tablet 8 mg PO HS 06/02/24 06/02/24 History Past Med/Surg History Problem List (Updated 06/02/24 @ 10:52 by Ernst Troy PA-C) Hypomagnesemia Hypokalemia Type 2 diabetes mellitus Nausea and vomiting Swelling of left foot Groin pain, chronic, left Ilioinguinal neuralgia of left side Neural foraminal stenosis of lumbar spine Left L4-5 Opioid dependence (Chronic) Constipation (Acute) Left flank pain Lumbar disc herniation with radiculopathy Back pain (Acute) senior care (current) use of antithrombotics/antiplatelets (Acute) Acute dehydration (Acute) Abdominal pain (Acute) Acute dehydration (Acute) Elevated troponin (Acute) Diffuse abdominal pain (Acute) Uncontrolled hypertension Acute herpes zoster neuropathy (Acute) Infection due to Rivas catheter MRSA bacteremia Ulcer of second toe of left foot (Acute) Leukocytosis (Acute) Elevated lactic acid level (Acute) Abscess of right axilla Axillary hidradenitis suppurativa (Acute) Vomiting (Acute) Headache (Acute) Constipation (Acute) Diarrhea (Acute) Internal jugular (IJ) vein thromboembolism, acute Anemia Vitamin D deficiency Shoulder pain B12 deficiency Acute leg pain (Acute) Costochondritis Globus pharyngeus Somatic dysfunction of thoracic region Chronic pain syndrome Acute adjustment disorder with mixed anxiety and depressed mood Diarrhea Scapular dyskinesis Injury of left rotator cuff Numbness of upper extremity Status post spinal surgery Gastroparesis (Acute) Vitamin D deficiency Esophagitis History of tobacco use Toe ulcer, right MRSA (methicillin resistant staph aureus) culture positive Rash and nonspecific skin eruption Stye Acute hyperglycemia (Acute) Tenosynovitis of ankle Surgical wound, non healing (Acute) Ankle ulcer due to DM Encounter for pre-operative examination Anxiety Diarrhea Emphysema lung Cellulitis of left foot (Acute) Diabetic foot ulcer (Acute) Acute leg pain (Acute) Iron deficiency anemia History of amputation of great toe Diabetic peripheral neuropathy Depression Nonobstructive atherosclerosis of coronary artery Chronic back pain Medical History Hypertension Groin pain Foot pain Infection of left great toe due to methicillin resistant Staphylococcus aureus (MRSA) Diastolic CHF COVID-19 Osteomyelitis of great toe of left foot Opiate dependence Opiate abuse, continuous Acidosis, lactic Acute dehydration Gastroenteritis Sepsis Shortness of breath Opioid dependence Hypomagnesemia Insomnia 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 No issues per anesthesia postop progress note. Anemia Hyponatremia Cellulitis Peripheral neuropathy Benzodiazepine withdrawal Right second toe ulcer Diabetes mellitus type 2, uncontrolled Hyperlipidemia Seizures Gastritis Numbness of lower extremity Hypertriglyceridemia CAD (coronary artery disease) History of tobacco use Benzodiazepine dependence Diabetic neuropathy Abdominal pain Gastroparesis Esophagitis determined by endoscopy GIB (gastrointestinal bleeding) Insulin dependent diabetes mellitus DM2 (diabetes mellitus, type 2) IDDM, A1c 07/2021-11% Surgical History History of right below knee amputation (12/22/21) Right Below Knee Amputation(Right) - Davon Good MD, FACS History of lumbar surgery History of esophagogastroduodenoscopy (EGD) Family History Mother , age 63 Myocardial infarction Father , age 68 or 69 Myocardial infarction Brother S/P CABG (coronary artery bypass graft) Sister Myocardial infarction x 3; she is 57yo Social History Smoking Status: Former smoker packs per day: 0.5; Second Hand Exposure: No; Do You Dip or Chew Tobacco: No; Hx Alcohol Use: No Hx Substance Use: Yes (marijuana) Prescribed Medications: Marijuana Last Used Substance: Unknown Last Used Substance Other:: Medical marijuana Substance Use Type Other:: Medical marijuana Preferred Language: Hebrew Communication Ability: Effective Visual Impairment: No Limitations Hearing Ability: Normal Belling Machine Operator Required: No Beliefs That Will Affect Care: None marital status: Current Living Situation: Spouse and Family Current Living Situation Comment: lives at home with current occupational status: unemployed 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 Other Information That Helps Us Care for You: No other: raising a grandchild as well; lives in [place] Feels Safe at Home: Yes Safety Concerns: Feels Safe At This Time Diet: diabetic and low salt during the past year weight has: remained stable Assistive Devices: Bedside Commode, Glasses, Walker and Wheelchair Review of Systems Review of Systems: See HPI above Physical Exam Physical Exam: General: Upon entering room, patient is in acute physical distress secondary to her abdominal pain; tearful; anxious; nontoxic appearing; cooperative; SpO2 100% on 2L NC HEENT: normocephalic, atraumatic; no scleral icterus; PERRLA; vision and hearing grossly intact Neck: supple; no lymphadenopathy; trachea midline Skin: Mottled appearance; warm, dry without signs of tenting; no cyanosis; no rashes, bruising, lesions, or erythema noted CV: chest wall NTP; RRR; S1/S2 normal; no murmurs/rubs/gallops; pulses intact and symmetric at radial, DP, and PT Lungs: no acute respiratory distress; symmetrical chest wall expansion; clear breath sounds across all lung cardozo w/o adventitious sounds; no wheezing ABD: Soft; abdomen is TTP in all 4 quadrants; BS present; no rebound/guarding; no distention; no rashes or bruising on the abdomen, flanks, or back Back: Upper spine is NTP; lower spine is TTP around the sacrum MSK: no tics or fasciculations; no edema noted in the LEs, nonerythematous; RLE amputation Neuro: A&Ox3; normal mood and affect; fluent speech; no focal deficits; sensation intact and symmetric in the lower extremities assessed via light touch Results & Data Results & Data Vital Signs (Past 12 Hours) Vital Signs Temp Pulse Pulse Resp BP BP Pulse Ox 06/02/24 07:30 103 H 19 176/88 H 93 06/02/24 05:30 101 H 16 195/88 H 91 06/02/24 04:30 120 H 18 224/102 H 94 06/02/24 04:00 110 H 15 224/99 H 100 06/02/24 03:30 108 H 14 226/108 H 100 06/02/24 03:00 120 H 23 183/112 H 100 06/02/24 02:16 117 H 25 H 165/93 H 100 06/02/24 01:45 37.2 C 120 H 24 127/96 99 06/02/24 01:45 37.2 C 120 H 24 127/96 99 06/02/24 01:33 118 H 29 H 127/96 98 O2 Del Method 06/02/24 07:30 Room Air 06/02/24 05:30 06/02/24 04:30 06/02/24 04:00 06/02/24 03:30 06/02/24 03:00 06/02/24 02:16 06/02/24 01:45 Room Air 06/02/24 01:45 Room Air 06/02/24 01:33 Laboratory Results Abnormal lab results 06/02/24 06/02/24 Range/Units 03:25 04:55 WBC 17.13 H (4.8-10.8) K/ul RBC 6.34 H (4.20-5.40) M/uL MCV 72.7 L (80.0-100.0) fL MCH 23.2 L (25.0-34.0) pg MCHC 31.9 L (32.0-36.0) g/dL RDW Coeff of Maria Del Carmen 15.8 H (11.5-14.5) % Plt Count 434 H (130-400) K/uL Neut # (Auto) 14.76 H (1.40-6.50) K/uL Lymph # (Auto) 0.93 L (1.20-3.40) K/uL Ramsey # (Auto) 1.23 H (0.11-0.59) K/uL Sodium 133 L (136-145) mmol/L Potassium 3.0 L (3.5-5.1) mmol/L Chloride 92 L (98-107) mmol/L Anion Gap 20 H (3-11) Glucose 263 H (70-99(Fasting)) mg/dl Lactate 2.4 H* (0.4-2.0) mmol/L Calcium 10.5 H (8.6-10.3) mg/dl Total Bilirubin 1.2 H (0.2-1.0) mg/dl AST 12 L (13-39) U/L Total Protein 8.6 H (6.0-8.3) gm/dl Lipase < 3 L (11-82) U/L Ur Specific Meredith 1.031 H (1.000-1.030) Urine Protein 4+ H (Negative) Urine Glucose (UA) 2+ H (Negative) Urine Ketones 4+ H (Negative) Urine Blood 1+ H (Negative) Urine RBC (Auto) 3-5 H (0-2) /hpf U Hyaline Cast (Auto) >20 H (0-2) /lpf U Epithel Cells (Auto) 3-5 H (0-2) /hpf Urine Mucus Present A (None Prsent) Diagnostic Findings Abdomen/Pelvis CT 06/02/24 04:03 Exam(s): CT ABDOMEN + PELVIS With Contrast IV Amt: 93 ML OPTIRAY 320 EXAM: CT Abdomen and Pelvis With Intravenous Contrast CLINICAL HISTORY: Reason for exam: RLQ abd pain. TECHNIQUE: Axial computed tomography images of the abdomen and pelvis with intravenous contrast. CTDI is 19.53 mGy and DLP is 923.5 mGy-cm. Automated exposure control was utilized for the study. A dose lowering technique was utilized adhering to the principles of ALARA. CONTRAST: Patient received 93 ML OPTIRAY 320 of IV contrast COMPARISON: No relevant prior studies available. FINDINGS: Lung bases: Unremarkable. No mass. No consolidation. Mediastinum: 2 thoracic esophageal wall thickening, suggestive of reflux esophagitis. Small hiatus hernia. ABDOMEN: Liver: Unremarkable. No mass. Gallbladder and bile ducts: Cholecystectomy. No ductal dilation. Pancreas: Unremarkable. No mass. No ductal dilation. Spleen: Unremarkable. No splenomegaly. Adrenals: Unremarkable. No mass. Kidneys and ureters: Unremarkable. No solid mass. No hydronephrosis. Stomach and bowel: Unremarkable. No obstruction. No mucosal thickening. PELVIS: Appendix: The appendix is not visualized. Bladder: Unremarkable. No mass. Reproductive: Unremarkable as visualized. ABDOMEN and PELVIS: Intraperitoneal space: Unremarkable. No free air. No significant fluid collection. Bones/joints: Grade 1 L4/5 spondylolisthesis. Mild degenerative disc space narrowing seen at L4/5 and L5/S1 junction. No acute fracture. No dislocation. L5/S1 posterior spinal fusion. Vasculature: Unremarkable. No abdominal aortic aneurysm. Lymph nodes: Unremarkable. No enlarged lymph nodes. IMPRESSION: 1. No acute abdominal process identified. Nonvisualized appendix. 2. Distal thoracic esophageal wall thickening which could be from reflux esophagitis Electronically signed by: Hasmukh Quintana MD 06/02/24 05:47 AM ECG Additional Comments: EKG revealed sinus tachycardia at 117 bpm; QTc 488 Code Status & VTE Plan Code Status Full code VTE Prophylaxis Plan VTE Prophylaxis will be ordered: Yes PG Care Time/CCT Total # of Minutes Spent Total Time Spent with Patient: Total time spent is greater than 50% in coordination of care (as documented) at patient's floor/unit and/or counseling patient: Coding [place] [address] INT INP/OBS CARE 3/75MIN Patient Type Established History Comprehensive Exam Comprehensive Medical Decision Making High Complexity Diagnoses Acute dehydration E86.0 Abdominal pain R10.30 Abdominal location: lower abdomen, unspecified Nausea and vomiting R11.2 Constipation K59.00 Constipation type: unspecified constipation type Uncontrolled hypertension I10 Type 2 diabetes mellitus E11.69; Z79.4 Diabetes mellitus complication status: with other specified complication Diabetes mellitus custodial insulin use: with custodial use Hypokalemia E87.6 Hypomagnesemia E83.42 Leukocytosis D72.829 (2) Abdominal pain Abdominal location: lower abdomen, unspecified Qualified Code(s): R10.30 - Lower abdominal pain, unspecified (4) Constipation Constipation type: unspecified constipation type Qualified Code(s): K59.00 - Constipation, unspecified (6) Type 2 diabetes mellitus Diabetes mellitus complication status: with other specified complication Diabetes mellitus custodial insulin use: with custodial use Qualified Code(s): E11.69 - Type 2 diabetes mellitus with other specified complication; Z79.4 - senior 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
[2024-06-02 09:05] LABS: Magnesium 1.6 mg/dl (1.7-2.4)
[2024-06-02] MEDS ORDERED: ALBUTEROL HFA 8 GM INHALER INH PRN (09:32)
[2024-06-02] MEDS ORDERED: GLUCOSE 40% GEL 15 GM TUBE PO PRN (09:32)
[2024-06-02] MEDS ORDERED: CARBOHYDRATES FOR HYPOGLYCEMIA PO PRN (09:32)
[2024-06-02] MEDS ORDERED: GLUCOSE 10 TAB/TUBE PO PRN (09:32)
[2024-06-02] MEDS ORDERED: HYDROmorphone INJ 0.5 MG/0.5 ML SYR IV PRN (09:32)
[2024-06-02] MEDS ORDERED: GLUCAGON FOR INJ 1 MG VIAL SC PRN (09:32)
[2024-06-02] MEDS: MAGNESIUM SULFATE / D5W 1 GM/100 ML BAG IV ONE (09:58)
[2024-06-02] MEDS: ONDANSETRON INJ 2 MG/ML 2 ML VIAL IV PRN (09:58)
[2024-06-02] MEDS: ACETAMINOPHEN 1,000 MG/100 ML VIAL IV PRN (09:59)
[2024-06-02] MEDS: NSS + 20MEQ KCL 20 MEQ/1,000 ML BAG IV SCH (10:34)
[2024-06-02] MEDS: ASPIRIN 81 MG ECTAB PO SCH (10:35)
[2024-06-02] MEDS: NIFEdipine EXTENDED REL 30 MG TABCR PO SCH (10:35)
[2024-06-02] MEDS: METOPROLOL SUCC 50MG EXT REL TAB PO SCH (10:36)
[2024-06-02] MEDS: DULoxetine HCL 60 MG CAP PO SCH (10:36)
[2024-06-02] MEDS: CLOPIDOGREL BISULFATE 75 MG TAB PO SCH (10:36)
[2024-06-02] MEDS: cloNIDine HCL 0.1 MG TAB PO SCH (10:36)
[2024-06-02] MEDS: hydrALAZINE HCL 25 MG TAB PO SCH (10:36)
[2024-06-02] MEDS: lisinopril 20 MG TAB PO SCH (10:36)
[2024-06-02] MEDS: PREGABALIN 100 MG CAP PO SCH (10:57)
[2024-06-02] MEDS: DOCUSATE SODIUM 100 MG CAP PO SCH (10:58)
[2024-06-02] MEDS: POLYETHYLENE (MIRALAX) 17 GM PACK PO SCH (10:58)
[2024-06-02] MEDS: PANTOprazole 40 MG/10 ML SYR IV ONE (11:59)
[2024-06-02] MEDS: HYDROmorphone INJ 1 MG/ML SYRINGE IV PRN (11:59)
--- NOTE | 2024-06-02 12:12 | XRay Report ---
XR chest 1V portable CLINICAL HISTORY: Leukocytosis Chest CT October 02, 2022. COMPARISON STUDY: Chest radiograph March 09, 2024. FINDINGS: Lung volumes are normal. Lungs are clear. There is no pneumothorax or pleural effusion. Car diac size is normal. Mediastinal contours are normal. There is no evidence for pulmonary edema. IMPRESSION: No acute cardiopulmonary findings. ACT 112: Negative or not required by law. Electronically signed by: Wilver Powell M.D. 06/02/2024 12:11 PM
[2024-06-02] MEDS: INSULIN ASPART PER UNIT CHARGE SC SCH (12:15)
[2024-06-02] MEDS: PROCHLORPERAZINE 5 MG in SYRINGE 4 ML IV PRN (13:36)
[2024-06-02 16:41] LABS: BUN Creatinine Ratio 17.8 (10-20); Calcium 9.1 mg/dl (8.6-10.3); Creatinine Clr Calc Pharmacy 46.8 ml/min; Potassium 3.3 mmol/L (3.5-5.1)
[2024-06-02] MEDS: SENNA 8.6 MG TAB PO PRN (20:58)
[2024-06-02] MEDS: PNEUMOCOCCAL VACCINE (PCV20) 20-VAL CONJ-DIP CRM/PF 0.5 ML SYR IM ONE (20:58)
[2024-06-02] MEDS: INFLUENZA VACC TS2024-25(6m+)/PF (IIV3) 0.5mL Syr IM ONE (20:58)
[2024-06-02] MEDS: HEPARIN SOD 5,000 UNIT/0.5 ML VIAL SQ SCH (20:59)
[2024-06-02] MEDS ORDERED: rOPINIRole HCL 2 MG TABLET PO SCH (21:00)
[2024-06-02] MEDS: LANTUS PER UNIT CHARGE SQ SCH (21:00)
[2024-06-02] MEDS: PANTOprazole 40 MG/10 ML SYR IV SCH (21:10)
[2024-06-02] MEDS: QUEtiapine FUMARATE 25 MG TABLET PO SCH (21:12)
--- NOTE | 2024-06-03 07:45 | Hospitalist Progress Note ---
Date of Service June 03, 2024 Assessment & Plan (1) Acute dehydration: Plan: Volume contracted on arrival Patient reports she has not been able to tolerate solids x 12 days, and is only able to keep down some fluids GI medicine will see pt and consider EGD in the AM 06/04 (2) Abdominal pain: Plan: Acute on chronic, CT without acute pathology, with vascular history consider intestinal angina vs constipation ? IV acetaminophen and Dilaudid as needed for pain control Heat application with K-pad as needed iv protonix bid N/v resolved, still not able to take solid food hypokalemia persists replete (3) Uncontrolled hypertension: Plan: Patient is been unable to tolerate her p.o. antihypertensives at home due to vomiting Restart clonidine, hydralazine, lisinopril, nifedipine, and metoprolol as tolerated IV antihypertensives if needed (4) Type 2 diabetes mellitus: Plan: Last A1c at 7.4% on 03/01/2024 Glucose 264 on admission Patient normally takes Lantus 10u HS, but has not been taking over the past 3-4 days due to poor oral intake We will give Lantus 5u BID Loose SSI with target BSG range 120-150mg/dL, CF 50, carb ratio 15 BSG q6h for now Adjust regimen as needed AM A1c (5) Leukocytosis: Plan: ? if espophagitis could be diamante or viral , EGD in am Procalcitonin WNL Patient reports negative home test for COVID/flu the week prior to arrival (was having reported low-grade fever of 99 F) No clear source on arrival UA without infection CXR ordered, no pneumonia Blood cultures drawn in the ED Will defer antibiotics Plan Full code VTE PPx: SCDs; hold chemical DVT PPx in the setting of hematemesis for 24 hours (please add on chemical DVT PPx for extended stay) Admission and Anticipated Discharge Date Admission Date: June 02, 2024 Subjective pt persists with only tolerating liquids, epigastric and RUQ tenderness Physical Exam Physical Exam: nabs, soft no rebound, tender in epigastrium, RUQ Results & Data Results & Data Vital Signs (Past 12 Hours) Vital Signs Temp Pulse Pulse Resp BP Pulse Ox O2 Del Method 06/03/24 07:29 98.1 F 82 15 149/71 H 94 Room Air 06/03/24 02:58 97.9 F 68 18 100/55 L 97 Room Air 06/02/24 22:53 73 06/02/24 22:48 97.9 F 70 18 95/54 L 92 Room Air 06/02/24 20:00 Room Air PG Care Time/CCT Total # of Minutes Spent Total Time Spent with Patient: Total time spent is greater than 50% in coordination of care (as documented) at patient's floor/unit and/or counseling patient: Coding Level of Care Code 12824 SUB INP/OBS CARE 3/50MIN Diagnoses Acute dehydration E86.0 Abdominal pain R10.30 Abdominal location: lower abdomen, unspecified Uncontrolled hypertension I10 Type 2 diabetes mellitus E11.69; Z79.4 Diabetes mellitus complication status: with other specified complication Diabetes mellitus usp insulin use: with usp use Leukocytosis D72.829 (2) Abdominal pain Abdominal location: lower abdomen, unspecified Qualified Code(s): R10.30 - Lower abdominal pain, unspecified (4) Type 2 diabetes mellitus Diabetes mellitus complication status: with other specified complication Diabetes mellitus long term care pharmacist insulin use: with usp use Qualified Code(s): E11.69 - Type 2 diabetes mellitus with other specified complication; Z79.4 - L chacha term (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
[2024-06-03 08:42] LABS: Estimated Average Glucose 157 mg/dl; Hemoglobin A1C 7.1 % (4.5-5.6)
[2024-06-03 08:44] LABS: BUN Creatinine Ratio 30.4 (10-20); Calcium 8.9 mg/dl (8.6-10.3); Creatinine Clr Calc Pharmacy 68.6 ml/min; Magnesium 2.1 mg/dl (1.7-2.4); Potassium 3.2 mmol/L (3.5-5.1)
[2024-06-03 08:55] LABS: Basophils # (auto) 0.04 K/uL (0.00-0.20); Basophils % (auto) 0.2 %; Eosinophils # (auto) 0.05 K/uL (0.00-0.50); Eosinophils % (auto) 0.3 %; Hematocrit (blood only) 39.1 % (37.0-47.0); Hemoglobin 11.8 g/dl (12.0-16.0); Immature Granulocytes % (auto) 0.5 %; Lymphocytes # (auto) 2.62 K/uL (1.20-3.40); Lymphocytes % (auto) 13.5 %; Mean Corpuscular Hgb Conc 30.2 g/dL (32.0-36.0); Mean Corpuscular Volume 76.2 fL (80.0-100.0); Mean Platelet Volume 9.7 fL (9.4-12.4); Monocytes # (auto) 1.29 K/uL (0.11-0.59); Monocytes % (auto) 6.6 %; Neutrophils # (auto) 15.37 K/uL (1.40-6.50); Neutrophils % (auto) 78.9 %; Platelet Count 345 K/uL (130-400); RDW Coefficient of Variation 15.3 % (11.5-14.5); RDW Standard Deviation 41.8 fL (36.4-46.3); Red Blood Count 5.13 M/uL (4.20-5.40); White Blood Count 19.47 K/ul (4.8-10.8)
--- NOTE | 2024-06-03 15:33 | Gastrointestinal Consultation ---
Date of Consultation June 03, 2024 Assessment & Plan (1) Nausea and vomiting: (2) Diffuse abdominal pain: (3) Dysphagia: Plan Patient is a 59 year old female with a past medical history of gastroparesis, diabetic peripheral neuropathy, chronic pain syndrome, adjustment disorder, anxiety, depression, MRSA bacteremia, and uncontrolled hypertension presented to the ED on 06/02 for abdominal pain, nausea, vomiting, and constipation. she also has heartburn and dysphagia. Patient was seen with Dr. Donnelly who also examined patient today. - will plan for potential EGD tomorrow pending her course. - continue with protonix 40mg IV BID. - recommend surgical evaluation given degree of her pain and rebound on exam. Supervising Physician Co-Signing Physician Notes I saw and examined this patient with our nurse practitioner and agree with her assessment and plan. On exam she has right lower quadrant tenderness with rebound. This would be atypical for gastroparesis or gastric luminal pathology. In light of leukocytosis concerned about other inflammatory process contributing to her symptoms despite the unrevealing CT scan imaging done on this admission. Need to consider atypical presentation of appendicitis, ischemic colitis, partial small bowel obstruction. Recommend n.p.o. IV fluids blood and urine cultures. Consult general surgery for their input. History of Present Illness Reason for Consultation: dysphagia to solids. ? EGD Requesting Physician: Ashok Clemons MD Attending Physician: Ashok Clemons MD History of Present Illness Patient is a 59 year old female with a past medical history of gastroparesis, diabetic peripheral neuropathy, chronic pain syndrome, adjustment disorder, anxiety, depression, MRSA bacteremia, and uncontrolled hypertension who presented on 06/02 to the ED for abdominal pain, nausea, vomiting, and constipation. she tells me that this has been going on for 13 days and she has not been tolerating any oral intake. she also has had associated heartburn and dysphagia which is new for her. she attributes constipation to not having any oral intake. no nsaid use. She tells me she had an EGD and colonoscopy years ago with [facility] but I do not have access to these records. she reports that other than some inflammation that it was unremarkable. 06/03 CT showing distal thoracic esophageal wall thickening. no acute process identified. Allergies Allergy/AdvReac Type Severity Reaction Status Date / Time morphine Allergy Severe blisters Verified 02/10/24 22:40 in mouth Sulfa (Sulfonamide Allergy Severe rash/swelli Verified 02/10/24 22:40 Antibiotics) ng amoxicillin [From Augmentin] Allergy Intermediate itching/power Verified 02/10/24 22:40 h ceftriaxone [From Rocephin] Allergy Intermediate Hives Verified 02/10/24 22:40 clavulanic acid Allergy Intermediate itching/power Verified 02/10/24 22:40 [From Augmentin] h erythromycin base Allergy Intermediate Hives Verified 02/10/24 22:40 vancomycin Allergy Intermediate YULIYA Verified 02/10/24 22:40 SYNDROME---CAN TAKE IF VERY SLOW DRIP. adhesive AdvReac Intermediate DERMABOND Verified 02/10/24 22:40 excoriates skin gabapentin AdvReac Intermediate Nausea Verified 02/10/24 22:40 iron [From Venofer] AdvReac Intermediate Hypertensio Verified 02/10/24 22:40 n Home Medications Medication Instructions Recorded Confirmed Type insulin glargine 100 unit/mL (3 10 unit subcut HS 10/17/22 06/02/24 History mL) subcutaneous pen (Lantus Solostar U-100 Insulin) albuterol sulfate 90 mcg/actuation 2 puff inhalation QID PRN 05/08/23 06/02/24 History aerosol inhaler Shortness Of Breath Or Wheezing alprazolam 1 mg tablet 1 mg PO TID PRN Anxiety 05/08/23 06/02/24 History docusate sodium 100 mg capsule 100 mg PO BID 05/08/23 06/02/24 History metoprolol succinate 50 mg 50 mg PO QAM 05/08/23 06/02/24 History tablet,extended release 24 hr (Toprol XL) pantoprazole 40 mg tablet,delayed 40 mg PO BID 05/08/23 06/02/24 History release clopidogrel 75 mg tablet (Plavix) 75 mg PO DAILY #30 tabs 05/10/23 06/02/24 Rx prochlorperazine maleate 5 mg 5 mg PO TID PRN Nausea 06/13/23 06/02/24 History tablet aspirin 81 mg tablet,delayed 81 mg PO DAILY 09/19/23 06/02/24 History release hydralazine 25 mg tablet 25 mg PO TID 09/19/23 06/02/24 History nifedipine 60 mg tablet,extended 120 mg PO DAILY 09/19/23 06/02/24 History release 24 hr lidocaine 5 % topical patch 1 patch transdermal QAM #14 ea 12/13/23 06/02/24 Rx ascorbic acid (vitamin C) 500 mg 500 mg PO QAM #20 tabs 04/03/24 06/02/24 Rx tablet (Vitamin C) clonidine HCl 0.1 mg tablet 0.1 mg PO Q8H #90 tabs 04/03/24 06/02/24 Rx cyanocobalamin (vitamin B-12) 500 1,000 mcg (2 x 500 mcg) PO QAM #30 04/03/24 06/02/24 Rx mcg tablet tabs naloxone 4 mg/actuation nasal spray 4 mg intranasal ONCE PRN opioid 04/03/24 06/02/24 Rx overdose #2 ea oxycodone 20 mg tablet 20 mg PO Q6H PRN pain #12 tabs 04/03/24 06/02/24 Rx polyethylene glycol 3350 17 gram 17 g PO BID #0 ea 04/03/24 06/02/24 Rx oral powder packet (Miralax) pregabalin 100 mg capsule (Lyrica) 100 mg PO TID #90 caps 04/03/24 06/02/24 Rx sennosides 8.6 mg tablet (Senokot) 17.2 mg (2 x 8.6 mg) PO BID PRN 04/03/24 06/02/24 Rx constipation #60 tabs duloxetine 60 mg capsule,delayed 60 mg PO DAILY 06/02/24 06/02/24 History release insulin aspart 5 unit subcut TIDM 06/02/24 06/02/24 History (niacinamide)(U-100) 100 unit/mL(3 mL) subcutaneous pen (Fiasp FlexTouch U-100 Insulin) lisinopril 20 mg tablet 20 mg PO DAILY 06/02/24 06/02/24 History quetiapine 50 mg tablet 50 mg PO HS 06/02/24 06/02/24 History ropinirole 4 mg tablet 8 mg PO HS 06/02/24 06/02/24 History Patient History Medical History Hypertension Groin pain Foot pain Infection of left great toe due to methicillin resistant Staphylococcus aureus (MRSA) Diastolic CHF COVID-19 Osteomyelitis of great toe of left foot Opiate dependence Opiate abuse, continuous Acidosis, lactic Acute dehydration Gastroenteritis Sepsis Shortness of breath Opioid dependence Hypomagnesemia Insomnia 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 No issues per anesthesia postop progress note. Anemia Hyponatremia Cellulitis Peripheral neuropathy Benzodiazepine withdrawal Right second toe ulcer Diabetes mellitus type 2, uncontrolled Hyperlipidemia Seizures Gastritis Numbness of lower extremity Hypertriglyceridemia CAD (coronary artery disease) History of tobacco use Benzodiazepine dependence Diabetic neuropathy Abdominal pain Gastroparesis Esophagitis determined by endoscopy GIB (gastrointestinal bleeding) Insulin dependent diabetes mellitus DM2 (diabetes mellitus, type 2) IDDM, A1c 07/2021-11% Surgical History History of right below knee amputation (12/22/21) Right Below Knee Amputation(Right) - Davon Good MD, [facility] History of lumbar surgery History of esophagogastroduodenoscopy (EGD) Family History Mother , age 63 Myocardial infarction Father , age 68 or 69 Myocardial infarction Brother S/P CABG (coronary artery bypass graft) Sister Myocardial infarction x 3; she is 57yo Social History Smoking Status: Former smoker packs per day: 0.5; Second Hand Exposure: No; Do You Dip or Chew Tobacco: No; Hx Alcohol Use: No Hx Substance Use: Yes (marijuana) Prescribed Medications: Marijuana Last Used Substance: Unknown Last Used Substance Other:: Medical marijuana Substance Use Type Other:: Medical marijuana Preferred Language: Syriac Communication Ability: Effective Visual Impairment: No Limitations Hearing Ability: Normal Licensed Electrician Required: No Beliefs That Will Affect Care: None marital status: Current Living Situation: Spouse and Family Current Living Situation Comment: lives at home with current occupational status: unemployed 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 Other Information That Helps Us Care for You: No other: raising a grandchild as well; lives in [place] Feels Safe at Home: Yes Safety Concerns: Feels Safe At This Time Diet: diabetic and low salt during the past year weight has: remained stable Assistive Devices: Walker and Wheelchair Review of Systems Review of Systems: All systems reviewed & are unremarkable except as noted in HPI & below Physical Exam Constitutional: WD/WN, vitals as above Respiratory: normal respiratory effort, lungs clear to auscultation Cardiovascular: Rate/Rhythm: regular rate and regular rhythm Gastrointestinal (Abdomen): moderate right sided and mid epigastric tenderness to palpation, rebound noted, no guarding, soft, normal bowel sounds. Psychiatric: Orientation: alert and oriented x 3 Results & Data Vital Signs (Past 12 Hours) Vital Signs Temp Pulse Pulse Resp BP Pulse Ox O2 Del Method 06/03/24 14:11 133/69 06/03/24 11:50 98.2 F 72 15 144/70 H 93 Room Air 06/03/24 11:48 98.1 F 72 16 144/70 H 93 Nasal Cannula 06/03/24 09:41 Room Air 06/03/24 09:23 72 06/03/24 07:29 98.1 F 82 15 149/71 H 94 Room Air O2 Flow Rate 06/03/24 14:11 06/03/24 11:50 06/03/24 11:48 2 06/03/24 09:41 06/03/24 09:23 06/03/24 07:29 Coding Level of Care Code 55889 IN/OBS CONSULT LVL 4,60M Diagnoses Nausea and vomiting R11.2 Diffuse abdominal pain R10.84 Dysphagia R13.10
[2024-06-03] MEDS: POTASSIUM CHLORIDE / WTR 10 MEQ/100 ML PLCT IV SCH (19:19)
[2024-06-04] MEDS: DEXTROSE 50% 50 ML SYRINGE IV PRN (06:50)
[2024-06-04 07:14] LABS: Basophils # (auto) 0.04 K/uL (0.00-0.20); Basophils % (auto) 0.3 %; Eosinophils # (auto) 0.08 K/uL (0.00-0.50); Eosinophils % (auto) 0.6 %; Hematocrit (blood only) 34.1 % (37.0-47.0); Hemoglobin 10.3 g/dl (12.0-16.0); Immature Granulocytes # (auto) 0.05 K/uL (0.01-0.20); Immature Granulocytes % (auto) 0.4 %; Lymphocytes # (auto) 1.99 K/uL (1.20-3.40); Lymphocytes % (auto) 15.5 %; Mean Corpuscular Hemoglobin 23.4 pg (25.0-34.0); Mean Corpuscular Hgb Conc 30.2 g/dL (32.0-36.0); Mean Corpuscular Volume 77.3 fL (80.0-100.0); Mean Platelet Volume 9.9 fL (9.4-12.4); Monocytes # (auto) 0.97 K/uL (0.11-0.59); Monocytes % (auto) 7.6 %; Neutrophils # (auto) 9.71 K/uL (1.40-6.50); Neutrophils % (auto) 75.6 %; Platelet Count 315 K/uL (130-400); RDW Coefficient of Variation 15.1 % (11.5-14.5); RDW Standard Deviation 41.9 fL (36.4-46.3); Red Blood Count 4.41 M/uL (4.20-5.40); White Blood Count 12.84 K/ul (4.8-10.8)
--- NOTE | 2024-06-04 07:34 | Hospitalist Progress Note ---
Date of Service June 04, 2024 Assessment & Plan (1) Acute dehydration: Plan: Volume contracted on arrival, now resolved Patient reports she has not been able to tolerate solid hgb dropped after hydration 14-10 EGD in the AM 06/04, esophagitis and gastritis without ulcer on protonix, starting carafate, attempt to reduce opiates (2) Abdominal pain: Plan: Acute on chronic, CT without acute pathology, with vascular history consider intestinal angina vs constipation ? IV acetaminophen and Dilaudid as needed for pain control Heat application with K-pad as needed iv protonix bid N/v resolved, advance diet (3) Uncontrolled hypertension: Plan: Patient is been unable to tolerate her p.o. antihypertensives at home due to vomiting Restart clonidine, hydralazine, lisinopril, nifedipine, and metoprolol as tolerated IV antihypertensives if needed (4) Type 2 diabetes mellitus: Plan: Last A1c at 7.4% on 03/01/2024 Glucose 264 on admission Patient normally takes Lantus 10u HS, but has not been taking over the past 3-4 days due to poor oral intake We will give Lantus 5u BID Loose SSI with target BSG range 120-150mg/dL, CF 50, carb ratio 15 BSG q6h for now Adjust regimen as needed a1c 7.1 (5) Leukocytosis: Plan: improving espophagitis not consistent with infection on egd Procalcitonin WNL Patient reports negative home test for COVID/flu the week prior to arrival (was having reported low-grade fever of 99 F) No clear source on arrival UA without infection CXR ordered, no pneumonia Plan Full code VTE PPx: SCDs; hold chemical DVT PPx in the setting of hematemesis for 24 hours (please add on chemical DVT PPx for extended stay) Admission and Anticipated Discharge Date Admission Date: June 02, 2024 Subjective pt with soft abdomen epigastric pain, no rebound no guarding now with increased pain and concern with past pain need Physical Exam Physical Exam: nabs, soft no rebound, tender in epigastrium, RUQ Results & Data Results & Data Vital Signs (Past 12 Hours) Vital Signs Temp Pulse Pulse Resp BP Pulse Ox O2 Del Method 06/04/24 07:25 97.7 F 63 18 120/57 L 92 Room Air 06/04/24 07:21 61 06/04/24 02:39 97.7 F 66 18 92/58 L 96 Room Air 06/03/24 23:12 68 06/03/24 22:55 98.2 F 73 18 95/54 L 94 Room Air 06/03/24 19:51 97.9 F 70 18 114/55 L 94 Room Air Laboratory Results review cbc review chemistry PG Care Time/CCT Total # of Minutes Spent Total Time Spent with Patient: Total time spent is greater than 50% in coordination of care (as documented) at patient's floor/unit and/or counseling patient: Coding Level of Care Code 15714 SUB INP/OBS CARE 3/50MIN Diagnoses Acute dehydration E86.0 Abdominal pain R10.30 Abdominal location: lower abdomen, unspecified Uncontrolled hypertension I10 Type 2 diabetes mellitus E11.69; Z79.4 Diabetes mellitus complication status: with other specified complication Diabetes mellitus terminal worker insulin use: with prison use Leukocytosis D72.829 (2) Abdominal pain Abdominal location: lower abdomen, unspecified Qualified Code(s): R10.30 - Lower abdominal pain, unspecified (4) Type 2 diabetes mellitus Diabetes mellitus complication status: with other specified complication Diabetes mellitus terminal worker insulin use: with prison use Qualified Code(s): E11.69 - Type 2 diabetes mellitus with other specified complication; Z79.4 - termite control service representative (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
[2024-06-04 07:35] LABS: BUN Creatinine Ratio 38.3 (10-20); Calcium 8.1 mg/dl (8.6-10.3); Creatinine Clr Calc Pharmacy 86.5 ml/min; Potassium 3.6 mmol/L (3.5-5.1)
--- NOTE | 2024-06-04 10:13 | History & Physical Report ---
Date of Service June 04, 2024 Assessment & Plan (1) Nausea and vomiting: Plan: Endoscopy (2) Hematemesis: Plan: Endoscopy (3) Abdominal pain: Plan: Endoscopy Admission and Anticipated Discharge Date Admission Date: June 02, 2024 History of Present Illness Chief Complaint: Abdominal pain nausea and vomiting Primary Care Provider: Vince Vernon DO 2-week history of abdominal pain nausea and vomiting with a possible episode of hematemesis. Allergies Allergy/AdvReac Type Severity Reaction Status Date / Time morphine Allergy Severe blisters Verified 02/10/24 22:40 in mouth Sulfa (Sulfonamide Allergy Severe rash/swelli Verified 02/10/24 22:40 Antibiotics) ng amoxicillin [From Augmentin] Allergy Intermediate itching/power Verified 02/10/24 22:40 h ceftriaxone [From Rocephin] Allergy Intermediate Hives Verified 02/10/24 22:40 clavulanic acid Allergy Intermediate itching/power Verified 02/10/24 22:40 [From Augmentin] h erythromycin base Allergy Intermediate Hives Verified 02/10/24 22:40 vancomycin Allergy Intermediate YULIYA Verified 02/10/24 22:40 SYNDROME---CAN TAKE IF VERY SLOW DRIP. adhesive AdvReac Intermediate DERMABOND Verified 02/10/24 22:40 excoriates skin gabapentin AdvReac Intermediate Nausea Verified 02/10/24 22:40 iron [From Venofer] AdvReac Intermediate Hypertensio Verified 02/10/24 22:40 n Home Medications Medication Instructions Recorded Confirmed Type insulin glargine 100 unit/mL (3 10 unit subcut HS 10/17/22 06/02/24 History mL) subcutaneous pen (Lantus Solostar U-100 Insulin) albuterol sulfate 90 mcg/actuation 2 puff inhalation QID PRN 05/08/23 06/02/24 History aerosol inhaler Shortness Of Breath Or Wheezing alprazolam 1 mg tablet 1 mg PO TID PRN Anxiety 05/08/23 06/02/24 History docusate sodium 100 mg capsule 100 mg PO BID 05/08/23 06/02/24 History metoprolol succinate 50 mg 50 mg PO QAM 05/08/23 06/02/24 History tablet,extended release 24 hr (Toprol XL) pantoprazole 40 mg tablet,delayed 40 mg PO BID 05/08/23 06/02/24 History release clopidogrel 75 mg tablet (Plavix) 75 mg PO DAILY #30 tabs 05/10/23 06/02/24 Rx prochlorperazine maleate 5 mg 5 mg PO TID PRN Nausea 06/13/23 06/02/24 History tablet aspirin 81 mg tablet,delayed 81 mg PO DAILY 09/19/23 06/02/24 History release hydralazine 25 mg tablet 25 mg PO TID 09/19/23 06/02/24 History nifedipine 60 mg tablet,extended 120 mg PO DAILY 09/19/23 06/02/24 History release 24 hr lidocaine 5 % topical patch 1 patch transdermal QAM #14 ea 12/13/23 06/02/24 Rx ascorbic acid (vitamin C) 500 mg 500 mg PO QAM #20 tabs 04/03/24 06/02/24 Rx tablet (Vitamin C) clonidine HCl 0.1 mg tablet 0.1 mg PO Q8H #90 tabs 04/03/24 06/02/24 Rx cyanocobalamin (vitamin B-12) 500 1,000 mcg (2 x 500 mcg) PO QAM #30 04/03/24 06/02/24 Rx mcg tablet tabs naloxone 4 mg/actuation nasal spray 4 mg intranasal ONCE PRN opioid 04/03/24 06/02/24 Rx overdose #2 ea oxycodone 20 mg tablet 20 mg PO Q6H PRN pain #12 tabs 04/03/24 06/02/24 Rx polyethylene glycol 3350 17 gram 17 g PO BID #0 ea 04/03/24 06/02/24 Rx oral powder packet (Miralax) pregabalin 100 mg capsule (Lyrica) 100 mg PO TID #90 caps 04/03/24 06/02/24 Rx sennosides 8.6 mg tablet (Senokot) 17.2 mg (2 x 8.6 mg) PO BID PRN 04/03/24 06/02/24 Rx constipation #60 tabs duloxetine 60 mg capsule,delayed 60 mg PO DAILY 06/02/24 06/02/24 History release insulin aspart 5 unit subcut TIDM 06/02/24 06/02/24 History (niacinamide)(U-100) 100 unit/mL(3 mL) subcutaneous pen (Fiasp FlexTouch U-100 Insulin) lisinopril 20 mg tablet 20 mg PO DAILY 06/02/24 06/02/24 History quetiapine 50 mg tablet 50 mg PO HS 06/02/24 06/02/24 History ropinirole 4 mg tablet 8 mg PO HS 06/02/24 06/02/24 History Past Med/Surg History Problem List (Updated 06/04/24 @ 10:13 by Festus Donnelly MD) Abdominal pain Hematemesis Nausea and vomiting Dysphagia Lumbar radiculopathy, right (Acute) Intractable vomiting (Acute) Hypokalemia (Acute) Acute dehydration (Acute) Diffuse abdominal pain (Acute) Hypomagnesemia Hypokalemia Type 2 diabetes mellitus Nausea and vomiting Swelling of left foot Groin pain, chronic, left Ilioinguinal neuralgia of left side Neural foraminal stenosis of lumbar spine Left L4-5 Opioid dependence (Chronic) Constipation (Acute) Left flank pain Lumbar disc herniation with radiculopathy Back pain (Acute) jail (current) use of antithrombotics/antiplatelets (Acute) Acute dehydration (Acute) Abdominal pain (Acute) Acute dehydration (Acute) Elevated troponin (Acute) Diffuse abdominal pain (Acute) Uncontrolled hypertension Acute herpes zoster neuropathy (Acute) Infection due to Rivas catheter MRSA bacteremia Ulcer of second toe of left foot (Acute) Leukocytosis (Acute) Elevated lactic acid level (Acute) Abscess of right axilla Axillary hidradenitis suppurativa (Acute) Vomiting (Acute) Headache (Acute) Constipation (Acute) Diarrhea (Acute) Internal jugular (IJ) vein thromboembolism, acute Anemia Vitamin D deficiency Shoulder pain B12 deficiency Acute leg pain (Acute) Costochondritis Globus pharyngeus Somatic dysfunction of thoracic region Chronic pain syndrome Acute adjustment disorder with mixed anxiety and depressed mood Diarrhea Scapular dyskinesis Injury of left rotator cuff Numbness of upper extremity Status post spinal surgery Gastroparesis (Acute) Vitamin D deficiency Esophagitis History of tobacco use Toe ulcer, right MRSA (methicillin resistant staph aureus) culture positive Rash and nonspecific skin eruption Stye Acute hyperglycemia (Acute) Tenosynovitis of ankle Surgical wound, non healing (Acute) Ankle ulcer due to DM Encounter for pre-operative examination Anxiety Diarrhea Emphysema lung Cellulitis of left foot (Acute) Diabetic foot ulcer (Acute) Acute leg pain (Acute) Iron deficiency anemia History of amputation of great toe Diabetic peripheral neuropathy Depression Nonobstructive atherosclerosis of coronary artery Chronic back pain Medical History Hypertension Groin pain Foot pain Infection of left great toe due to methicillin resistant Staphylococcus aureus (MRSA) Diastolic CHF COVID-19 Osteomyelitis of great toe of left foot Opiate dependence Opiate abuse, continuous Acidosis, lactic Acute dehydration Gastroenteritis Sepsis Shortness of breath Opioid dependence Hypomagnesemia Insomnia 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 No issues per anesthesia postop progress note. Anemia Hyponatremia Cellulitis Peripheral neuropathy Benzodiazepine withdrawal Right second toe ulcer Diabetes mellitus type 2, uncontrolled Hyperlipidemia Seizures Gastritis Numbness of lower extremity Hypertriglyceridemia CAD (coronary artery disease) History of tobacco use Benzodiazepine dependence Diabetic neuropathy Abdominal pain Gastroparesis Esophagitis determined by endoscopy GIB (gastrointestinal bleeding) Insulin dependent diabetes mellitus DM2 (diabetes mellitus, type 2) IDDM, A1c 07/2021-11% Surgical History History of right below knee amputation (12/22/21) Right Below Knee Amputation(Right) - Davon Good MD, FACS History of lumbar surgery History of esophagogastroduodenoscopy (EGD) Family History Mother , age 63 Myocardial infarction Father , age 68 or 69 Myocardial infarction Brother S/P CABG (coronary artery bypass graft) Sister Myocardial infarction x 3; she is 57yo Social History Smoking Status: Former smoker packs per day: 0.5; Second Hand Exposure: No; Do You Dip or Chew Tobacco: No; Hx Alcohol Use: No Hx Substance Use: Yes (marijuana) Prescribed Medications: Marijuana Last Used Substance: Unknown Last Used Substance Other:: Medical marijuana Substance Use Type Other:: Medical marijuana Preferred Language: Icelandic Communication Ability: Effective Visual Impairment: No Limitations Hearing Ability: Normal Partner Integration Planner Required: No Beliefs That Will Affect Care: None marital status: Current Living Situation: Spouse and Family Current Living Situation Comment: lives at home with current occupational status: unemployed 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 Other Information That Helps Us Care for You: No other: raising a grandchild as well; lives in [place] Feels Safe at Home: Yes Safety Concerns: Feels Safe At This Time Diet: diabetic and low salt during the past year weight has: remained stable Assistive Devices: Walker and Wheelchair Review of Systems No fever No chills No SOB No CP + Abd pain Physical Exam Physical Exam: No acute distress Respiratory rate regular Cardiac rhythm regular Abdomen soft epigastric and right sided tenderness Results & Data Vital Signs (Past 12 Hours) Vital Signs Temp Pulse Pulse Resp BP Pulse Ox O2 Del Method 06/04/24 10:05 36.5 C 66 16 146/68 H 95 Room Air 06/04/24 09:26 Room Air 06/04/24 07:25 36.5 C 63 18 120/57 L 92 Room Air 06/04/24 07:21 61 06/04/24 02:39 36.5 C 66 18 92/58 L 96 Room Air 06/03/24 23:12 68 06/03/24 22:55 36.8 C 73 18 95/54 L 94 Room Air Code Status & VTE Plan VTE Prophylaxis Plan VTE Prophylaxis will be ordered: Yes Coding Level of Care Code None Diagnoses Nausea and vomiting R11.2 Hematemesis K92.0 Abdominal pain R10.9
--- NOTE | 2024-06-04 10:30 | History & Physical Bridge Note ---
Date of Service June 04, 2024 History & Physical Bridge Note I have reviewed the History & Physical and in the interval since the performance of the History & Physical I have noted the following changes of clinical significance: no changes noted Keep NPO and proceed with EGD today. Supervising Physician Co-Signing Physician Notes I saw and examined this patient with our nurse practitioner and agree with her assessment and plan
--- NOTE | 2024-06-04 10:39 | Anesthesiology Consultation ---
Date of Service June 04, 2024 Assessment & Plan ASA ASA3 Proposed Anesthesia Anesthesia Type: MAC Risk / Benefits Reviewed With: PT / POA / Parent / Guardian, Accepts Plan and Informed Consent Obtained History Surgery Operation Date: 06/04/24 16:30 Proposed Procedures p Esophagogastroduodenoscopy Dr. Cony Donnelly MD Height/Weight Height: 5 ft 2 in Weight: 62.233 kg Allergies Allergy/AdvReac Type Severity Reaction Status Date / Time morphine Allergy Severe blisters Verified 02/10/24 22:40 in mouth Sulfa (Sulfonamide Allergy Severe rash/swelli Verified 02/10/24 22:40 Antibiotics) ng amoxicillin [From Augmentin] Allergy Intermediate itching/power Verified 02/10/24 22:40 h ceftriaxone [From Rocephin] Allergy Intermediate Hives Verified 02/10/24 22:40 clavulanic acid Allergy Intermediate itching/power Verified 02/10/24 22:40 [From Augmentin] h erythromycin base Allergy Intermediate Hives Verified 02/10/24 22:40 vancomycin Allergy Intermediate YULIYA Verified 02/10/24 22:40 SYNDROME---CAN TAKE IF VERY SLOW DRIP. adhesive AdvReac Intermediate DERMABOND Verified 02/10/24 22:40 excoriates skin gabapentin AdvReac Intermediate Nausea Verified 02/10/24 22:40 iron [From Venofer] AdvReac Intermediate Hypertensio Verified 02/10/24 22:40 n Medications Home Medications Medication Instructions Recorded Confirmed Last Taken insulin glargine 100 unit/mL (3 10 unit subcut HS 10/17/22 06/02/24 02/09/24 mL) subcutaneous pen (Lantus Solostar U-100 Insulin) albuterol sulfate 90 mcg/actuation 2 puff inhalation QID PRN 05/08/23 06/02/24 12/16/23 10:40 aerosol inhaler Shortness Of Breath Or Wheezing alprazolam 1 mg tablet 1 mg PO TID PRN Anxiety 05/08/23 06/02/24 12/15/23 docusate sodium 100 mg capsule 100 mg PO BID 05/08/23 06/02/24 02/09/24 metoprolol succinate 50 mg 50 mg PO QAM 05/08/23 06/02/24 02/09/24 tablet,extended release 24 hr (Toprol XL) pantoprazole 40 mg tablet,delayed 40 mg PO BID 05/08/23 06/02/24 02/09/24 release clopidogrel 75 mg tablet (Plavix) 75 mg PO DAILY #30 tabs 05/10/23 06/02/24 02/09/24 prochlorperazine maleate 5 mg 5 mg PO TID PRN Nausea 06/13/23 06/02/24 12/16/23 10:40 tablet aspirin 81 mg tablet,delayed 81 mg PO DAILY 09/19/23 06/02/24 02/09/24 release hydralazine 25 mg tablet 25 mg PO TID 09/19/23 06/02/24 02/09/24 nifedipine 60 mg tablet,extended 120 mg PO DAILY 09/19/23 06/02/24 02/09/24 release 24 hr lidocaine 5 % topical patch 1 patch transdermal QAM #14 ea 12/13/23 06/02/24 02/09/24 ascorbic acid (vitamin C) 500 mg 500 mg PO QAM #20 tabs 04/03/24 06/02/24 Unknown tablet (Vitamin C) clonidine HCl 0.1 mg tablet 0.1 mg PO Q8H #90 tabs 04/03/24 06/02/24 Unknown cyanocobalamin (vitamin B-12) 500 1,000 mcg (2 x 500 mcg) PO QAM #30 04/03/24 06/02/24 Unknown mcg tablet tabs naloxone 4 mg/actuation nasal spray 4 mg intranasal ONCE PRN opioid 04/03/24 06/02/24 Unknown overdose #2 ea oxycodone 20 mg tablet 20 mg PO Q6H PRN pain #12 tabs 04/03/24 06/02/24 Unknown polyethylene glycol 3350 17 gram 17 g PO BID #0 ea 04/03/24 06/02/24 Unknown oral powder packet (Miralax) pregabalin 100 mg capsule (Lyrica) 100 mg PO TID #90 caps 04/03/24 06/02/24 Unknown sennosides 8.6 mg tablet (Senokot) 17.2 mg (2 x 8.6 mg) PO BID PRN 04/03/24 06/02/24 Unknown constipation #60 tabs duloxetine 60 mg capsule,delayed 60 mg PO DAILY 06/02/24 06/02/24 Unknown release insulin aspart 5 unit subcut TIDM 06/02/24 06/02/24 Unknown (niacinamide)(U-100) 100 unit/mL(3 mL) subcutaneous pen (Fiasp FlexTouch U-100 Insulin) lisinopril 20 mg tablet 20 mg PO DAILY 06/02/24 06/02/24 Unknown quetiapine 50 mg tablet 50 mg PO HS 06/02/24 06/02/24 Unknown ropinirole 4 mg tablet 8 mg PO HS 06/02/24 06/02/24 Unknown Active Medications Generic Name Dose Route Start Last Admin Trade Name Freq PRN Reason Stop Dose Admin Aspirin 81 mg 06/02/24 09:32 06/03/24 08:01 Aspirin 81 Mg Ectab PO 07/02/24 09:31 81 mg DAILY RICKY Administration Clonidine HCl 0.1 mg 06/02/24 09:32 06/04/24 09:11 Clonidine Hcl 0.1 Mg Tab PO 07/02/24 09:31 Not Given Q8@0000,0800,1600 RICKY Clopidogrel Bisulfate 75 mg 06/02/24 09:32 06/03/24 08:01 Clopidogrel Bisulfate 75 Mg Tab PO 07/02/24 09:31 75 mg DAILY RICKY Administration Dextrose 25 - 50 ml 06/02/24 09:32 06/04/24 06:50 Dextrose 50% 50 Ml Syringe IV 07/02/24 09:31 50 ml UD PRN Administration Hypoglycemia Protocol Protocol Docusate Sodium 100 mg 06/02/24 09:32 06/04/24 09:10 Docusate Sodium 100 Mg Cap PO 07/02/24 09:31 Not Given BID RICKY Duloxetine HCl 60 mg 06/02/24 09:32 06/03/24 08:01 Duloxetine Hcl 60 Mg Cap PO 07/02/24 09:31 60 mg DAILY RICKY Administration Heparin Sodium (Porcine) 5,000 units 06/02/24 21:00 06/04/24 09:03 Heparin Sod 5,000 Unit/0.5 Ml Vial SQ 07/02/24 20:59 Not Given Q12 RICKY Hydralazine HCl 25 mg 06/02/24 09:32 06/04/24 09:11 Hydralazine Hcl 25 Mg Tab PO 07/02/24 09:31 Not Given TID RICKY Hydromorphone HCl 1 mg 06/02/24 09:32 06/04/24 09:01 Hydromorphone Inj 1 Mg/Ml Syringe IV 06/16/24 09:31 1 mg Q3H PRN Administration Severe Pain (7,8,9,10) on NRS Pantoprazole Sodium 40 mg in 10 mls @ 5 mls/min 06/02/24 21:00 06/04/24 07:57 Protonix IV 07/02/24 20:59 5 mls/min BID RICKY Administration Acetaminophen 1,000 mg in 100 mls @ 400 mls/hr 06/02/24 09:32 06/04/24 08:38 Ofirmev IV 06/05/24 09:31 Infused Q8H PRN Infusion Fever/Mild Pain (Pain 1,2,3) Prochlorperazine 5 mg/ Syringe 5 mls @ 5 mls/min 06/02/24 12:02 06/03/24 12:17 IV 07/02/24 12:01 5 mls/min Q6H PRN Administration Nausea And Vomiting Insulin Aspart 0 units 06/02/24 11:30 06/04/24 08:37 Insulin Aspart Per Unit Charge SC 07/02/24 11:29 Not Given ACHS [facility] Insulin Glargine 5 units 06/02/24 21:00 06/04/24 08:37 Lantus Per Unit Charge SQ 07/02/24 20:59 Not Given BID RICKY Lisinopril 20 mg 06/02/24 09:32 06/03/24 08:01 Lisinopril 20 Mg Tab PO 07/02/24 09:31 20 mg DAILY RICKY Administration Metoprolol Succinate 50 mg 06/02/24 09:32 06/03/24 08:01 Metoprolol Succ 50mg Ext Rel Tab PO 07/02/24 09:31 50 mg QAM RICKY Administration Nifedipine 120 mg 06/02/24 09:32 06/03/24 08:00 Nifedipine Extended Rel 30 Mg Tabcr PO 07/02/24 09:31 120 mg DAILY RICKY Administration Ondansetron HCl 4 mg 06/02/24 09:32 06/04/24 07:54 Ondansetron Inj 2 Mg/Ml 2 Ml Vial IV 07/02/24 09:31 4 mg Q6H PRN Administration Nausea Polyethylene Glycol 17 gm 06/02/24 09:32 06/04/24 09:10 Polyethylene (Miralax) 17 Gm Pack PO 07/02/24 09:31 Not Given BID RICKY Pregabalin 100 mg 06/02/24 09:32 06/03/24 21:01 Pregabalin 100 Mg Cap PO 07/02/24 09:31 100 mg TID RICKY Administration Quetiapine Fumarate 50 mg 06/02/24 21:00 06/03/24 20:51 Quetiapine Fumarate 25 Mg Tablet PO 07/02/24 20:59 50 mg HS RICKY Administration Sennosides 17.2 mg 06/02/24 09:32 06/02/24 20:58 Senna 8.6 Mg Tab PO 07/02/24 09:31 17.2 mg BID PRN Administration constipation NPO Date Last Intake of Fluids: 06/03/24 Time Last Intake of Fluids: 22:00 Date Last Intake of Solids: 05/22/24 Time Last Intake of Solids: 23:59 Past Medical History Medical History Hypertension Groin pain Foot pain Infection of left great toe due to methicillin resistant Staphylococcus aureus (MRSA) Diastolic CHF COVID-19 Osteomyelitis of great toe of left foot Opiate dependence Opiate abuse, continuous Acidosis, lactic Acute dehydration Gastroenteritis Sepsis Shortness of breath Opioid dependence Hypomagnesemia Insomnia 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 No issues per anesthesia postop progress note. Anemia Hyponatremia Cellulitis Peripheral neuropathy Benzodiazepine withdrawal Right second toe ulcer Diabetes mellitus type 2, uncontrolled Hyperlipidemia Seizures Gastritis Numbness of lower extremity Hypertriglyceridemia CAD (coronary artery disease) History of tobacco use Benzodiazepine dependence Diabetic neuropathy Abdominal pain Gastroparesis Esophagitis determined by endoscopy GIB (gastrointestinal bleeding) Insulin dependent diabetes mellitus DM2 (diabetes mellitus, type 2) IDDM, A1c 07/2021-11% Exercise / Class Metabolic Activity II 4-5 Yardwork/Stairs/Walk up hill Past Family History Family History Mother , age 63 Myocardial infarction Father , age 68 or 69 Myocardial infarction Brother S/P CABG (coronary artery bypass graft) Sister Myocardial infarction x 3; she is 57yo Past Surgical History Surgical History History of right below knee amputation (12/22/21) Right Below Knee Amputation(Right) - Davon Good MD, [facility] History of lumbar surgery History of esophagogastroduodenoscopy (EGD) Past Anesthesia History No Hx of Anesthesia Complications and No Family Hx of Anesthesia Complications History of PONV No Hx of PONV and No Hx of Motion Sickness Social History Smoking Status: Former smoker tobacco type: cigarettes Do You Dip or Chew Tobacco: No Hx Alcohol Use: No Hx Substance Use: Yes (marijuana) substance use type: marijuana Substance Use Type Other:: Medical marijuana Last Used Substance: Unknown Last Used Substance Other:: Medical marijuana Physical Exam Vital Signs Last Vital Signs Temp 36.5 C 06/04/24 10:05 Pulse 66 06/04/24 10:05 Resp 16 06/04/24 10:05 BP 146/68 H 06/04/24 10:05 Pulse Ox 95 06/04/24 10:05 O2 Del Method Room Air 06/04/24 10:05 O2 Flow Rate 2 06/03/24 11:48 Constitutional no acute distress ENMT Mouth: + dentition abnormality, + dental caries and + poor dentition (Very poor dentition. Few remaining teeth; none loose. ) Thyromental Distance: > or= 3.5 Finger Breadths Mallampati Class: III Neck normal visual inspection Respiratory normal respiratory effort; no respiratory distress Auscultation: lungs clear to auscultation bilaterally Cardiovascular Rate/Rhythm: regular rate and regular rhythm Heart Sounds: no murmur Musculoskeletal Spine: normal cervical ROM Psychiatric Orientation: alert and oriented x 3 Testing Laboratory Results 06/04/24 06:56 06/04/24 06:56 Hemoglobin A1c 7.1 % (4.5-5.6) H 06/03/24 08:05 Urine Color Yellow 06/02/24 04:55 Urine Appearance Clear (Clear) 06/02/24 04:55 Urine pH 7.0 (4.5-7.5) 06/02/24 04:55 Ur Specific [place] 1.031 (1.000-1.030) H 06/02/24 04:55 Urine Protein 4+ (Negative) H 06/02/24 04:55 Urine Glucose (UA) 2+ (Negative) H 06/02/24 04:55 Urine Ketones 4+ (Negative) H 06/02/24 04:55 Urine Nitrite Negative (Negative) 06/02/24 04:55 Ur Leukocyte Esterase Negative (Negative) 06/02/24 04:55 Urine WBC (Auto) 0-5 /hpf (0-5) 06/02/24 04:55 Urine RBC (Auto) 3-5 /hpf (0-2) H 06/02/24 04:55 U Hyaline Cast (Auto) >20 /lpf (0-2) H 06/02/24 04:55 U Epithel Cells (Auto) 3-5 /hpf (0-2) H 06/02/24 04:55 Urine Bacteria (Auto) None Seen (None Seen) 06/02/24 04:55 06/02/24 03:25 Aerobic Blood Culture - Preliminary Blood No growth in Aerobic bottle after 48 hours. Anaerobic Blood Culture - Final 06/02/24 03:25 Aerobic Blood Culture - Preliminary Blood No growth in Aerobic bottle after 48 hours. Anaerobic Blood Culture - Final 06/04/24 06/04/24 07:05 06:43 POC Glucose 192 H 59 L* Day of Procedure Evaluation. Date of Surgery June 04, 2024 Height/Weight Height: 5 ft 2 in Weight: 62.233 kg Vital Signs Last Vital Signs Temp 36.5 C 06/04/24 10:05 Pulse 66 06/04/24 10:05 Resp 16 06/04/24 10:05 BP 146/68 H 06/04/24 10:05 Pulse Ox 95 06/04/24 10:05 O2 Del Method Room Air 06/04/24 10:05 O2 Flow Rate 2 06/03/24 11:48 Allergies Allergy/AdvReac Type Severity Reaction Status Date / Time morphine Allergy Severe blisters Verified 02/10/24 22:40 in mouth Sulfa (Sulfonamide Allergy Severe rash/swelli Verified 02/10/24 22:40 Antibiotics) ng amoxicillin [From Augmentin] Allergy Intermediate itching/power Verified 02/10/24 22:40 h ceftriaxone [From Rocephin] Allergy Intermediate Hives Verified 02/10/24 22:40 clavulanic acid Allergy Intermediate itching/power Verified 02/10/24 22:40 [From Augmentin] h erythromycin base Allergy Intermediate Hives Verified 02/10/24 22:40 vancomycin Allergy Intermediate YULIYA Verified 02/10/24 22:40 SYNDROME---CAN TAKE IF VERY SLOW DRIP. adhesive AdvReac Intermediate DERMABOND Verified 02/10/24 22:40 excoriates skin gabapentin AdvReac Intermediate Nausea Verified 02/10/24 22:40 iron [From Venofer] AdvReac Intermediate Hypertensio Verified 02/10/24 22:40 n Medications Home Medications Medication Instructions Recorded Confirmed Last Taken insulin glargine 100 unit/mL (3 10 unit subcut HS 10/17/22 06/02/24 02/09/24 mL) subcutaneous pen (Lantus Solostar U-100 Insulin) albuterol sulfate 90 mcg/actuation 2 puff inhalation QID PRN 05/08/23 06/02/24 12/16/23 10:40 aerosol inhaler Shortness Of Breath Or Wheezing alprazolam 1 mg tablet 1 mg PO TID PRN Anxiety 05/08/23 06/02/24 12/15/23 docusate sodium 100 mg capsule 100 mg PO BID 05/08/23 06/02/24 02/09/24 metoprolol succinate 50 mg 50 mg PO QAM 05/08/23 06/02/24 02/09/24 tablet,extended release 24 hr (Toprol XL) pantoprazole 40 mg tablet,delayed 40 mg PO BID 05/08/23 06/02/24 02/09/24 release clopidogrel 75 mg tablet (Plavix) 75 mg PO DAILY #30 tabs 05/10/23 06/02/24 02/09/24 prochlorperazine maleate 5 mg 5 mg PO TID PRN Nausea 06/13/23 06/02/24 12/16/23 10:40 tablet aspirin 81 mg tablet,delayed 81 mg PO DAILY 09/19/23 06/02/24 02/09/24 release hydralazine 25 mg tablet 25 mg PO TID 09/19/23 06/02/24 02/09/24 nifedipine 60 mg tablet,extended 120 mg PO DAILY 09/19/23 06/02/24 02/09/24 release 24 hr lidocaine 5 % topical patch 1 patch transdermal QAM #14 ea 12/13/23 06/02/24 02/09/24 ascorbic acid (vitamin C) 500 mg 500 mg PO QAM #20 tabs 04/03/24 06/02/24 Unknown tablet (Vitamin C) clonidine HCl 0.1 mg tablet 0.1 mg PO Q8H #90 tabs 04/03/24 06/02/24 Unknown cyanocobalamin (vitamin B-12) 500 1,000 mcg (2 x 500 mcg) PO QAM #30 04/03/24 06/02/24 Unknown mcg tablet tabs naloxone 4 mg/actuation nasal spray 4 mg intranasal ONCE PRN opioid 04/03/24 06/02/24 Unknown overdose #2 ea oxycodone 20 mg tablet 20 mg PO Q6H PRN pain #12 tabs 04/03/24 06/02/24 Unknown polyethylene glycol 3350 17 gram 17 g PO BID #0 ea 04/03/24 06/02/24 Unknown oral powder packet (Miralax) pregabalin 100 mg capsule (Lyrica) 100 mg PO TID #90 caps 04/03/24 06/02/24 Unknown sennosides 8.6 mg tablet (Senokot) 17.2 mg (2 x 8.6 mg) PO BID PRN 04/03/24 06/02/24 Unknown constipation #60 tabs duloxetine 60 mg capsule,delayed 60 mg PO DAILY 06/02/24 06/02/24 Unknown release insulin aspart 5 unit subcut TIDM 06/02/24 06/02/24 Unknown (niacinamide)(U-100) 100 unit/mL(3 mL) subcutaneous pen (Fiasp FlexTouch U-100 Insulin) lisinopril 20 mg tablet 20 mg PO DAILY 06/02/24 06/02/24 Unknown quetiapine 50 mg tablet 50 mg PO HS 06/02/24 06/02/24 Unknown ropinirole 4 mg tablet 8 mg PO HS 06/02/24 06/02/24 Unknown Active Medications Generic Name Dose Route Start Last Admin Trade Name Freq PRN Reason Stop Dose Admin Aspirin 81 mg 06/02/24 09:32 06/03/24 08:01 Aspirin 81 Mg Ectab PO 07/02/24 09:31 81 mg DAILY RICKY Administration Clonidine HCl 0.1 mg 06/02/24 09:32 06/04/24 09:11 Clonidine Hcl 0.1 Mg Tab PO 07/02/24 09:31 Not Given Q8@0000,0800,1600 [facility] Clopidogrel Bisulfate 75 mg 06/02/24 09:32 06/03/24 08:01 Clopidogrel Bisulfate 75 Mg Tab PO 07/02/24 09:31 75 mg DAILY RICKY Administration Dextrose 25 - 50 ml 06/02/24 09:32 06/04/24 06:50 Dextrose 50% 50 Ml Syringe IV 07/02/24 09:31 50 ml UD PRN Administration Hypoglycemia Protocol Protocol Docusate Sodium 100 mg 06/02/24 09:32 06/04/24 09:10 Docusate Sodium 100 Mg Cap PO 07/02/24 09:31 Not Given BID RICKY Duloxetine HCl 60 mg 06/02/24 09:32 06/03/24 08:01 Duloxetine Hcl 60 Mg Cap PO 07/02/24 09:31 60 mg DAILY RICKY Administration Heparin Sodium (Porcine) 5,000 units 06/02/24 21:00 06/04/24 09:03 Heparin Sod 5,000 Unit/0.5 Ml Vial SQ 07/02/24 20:59 Not Given Q12 RICKY Hydralazine HCl 25 mg 06/02/24 09:32 06/04/24 09:11 Hydralazine Hcl 25 Mg Tab PO 07/02/24 09:31 Not Given TID RICKY Hydromorphone HCl 1 mg 06/02/24 09:32 06/04/24 09:01 Hydromorphone Inj 1 Mg/Ml Syringe IV 06/16/24 09:31 1 mg Q3H PRN Administration Severe Pain (7,8,9,10) on NRS Pantoprazole Sodium 40 mg in 10 mls @ 5 mls/min 06/02/24 21:00 06/04/24 07:57 Protonix IV 07/02/24 20:59 5 mls/min BID RICKY Administration Acetaminophen 1,000 mg in 100 mls @ 400 mls/hr 06/02/24 09:32 06/04/24 08:38 Ofirmev IV 06/05/24 09:31 Infused Q8H PRN Infusion Fever/Mild Pain (Pain 1,2,3) Prochlorperazine 5 mg/ Syringe 5 mls @ 5 mls/min 06/02/24 12:02 06/03/24 12:17 IV 07/02/24 12:01 5 mls/min Q6H PRN Administration Nausea And Vomiting Insulin Aspart 0 units 06/02/24 11:30 06/04/24 08:37 Insulin Aspart Per Unit Charge SC 07/02/24 11:29 Not Given ACHS [facility] Insulin Glargine 5 units 06/02/24 21:00 06/04/24 08:37 Lantus Per Unit Charge SQ 07/02/24 20:59 Not Given BID RICKY Lisinopril 20 mg 06/02/24 09:32 06/03/24 08:01 Lisinopril 20 Mg Tab PO 07/02/24 09:31 20 mg DAILY RICKY Administration Metoprolol Succinate 50 mg 06/02/24 09:32 06/03/24 08:01 Metoprolol Succ 50mg Ext Rel Tab PO 07/02/24 09:31 50 mg QAM RICKY Administration Nifedipine 120 mg 06/02/24 09:32 06/03/24 08:00 Nifedipine Extended Rel 30 Mg Tabcr PO 07/02/24 09:31 120 mg DAILY RICKY Administration Ondansetron HCl 4 mg 06/02/24 09:32 06/04/24 07:54 Ondansetron Inj 2 Mg/Ml 2 Ml Vial IV 07/02/24 09:31 4 mg Q6H PRN Administration Nausea Polyethylene Glycol 17 gm 06/02/24 09:32 06/04/24 09:10 Polyethylene (Miralax) 17 Gm Pack PO 07/02/24 09:31 Not Given BID [facility] Pregabalin 100 mg 06/02/24 09:32 06/03/24 21:01 Pregabalin 100 Mg Cap PO 07/02/24 09:31 100 mg TID RICKY Administration Quetiapine Fumarate 50 mg 06/02/24 21:00 06/03/24 20:51 Quetiapine Fumarate 25 Mg Tablet PO 07/02/24 20:59 50 mg HS RICKY Administration Sennosides 17.2 mg 06/02/24 09:32 06/02/24 20:58 Senna 8.6 Mg Tab PO 07/02/24 09:31 17.2 mg BID PRN Administration constipation Past Anesthesia History No Hx of Anesthesia Complications and No Family Hx of Anesthesia Complications History of PONV No Hx of PONV and No Hx of Motion Sickness NPO Date Last Intake of Fluids: 06/03/24 Time Last Intake of Fluids: 22:00 Date Last Intake of Solids: 05/22/24 Time Last Intake of Solids: 23:59 HCG & FBG Results 06/04/24 06/04/24 07:05 06:43 POC Glucose 192 H 59 L* Home Medications Home Medications Medication Instructions Recorded Confirmed Last Taken insulin glargine 100 unit/mL (3 10 unit subcut HS 10/17/22 06/02/24 02/09/24 mL) subcutaneous pen (Lantus Solostar U-100 Insulin) albuterol sulfate 90 mcg/actuation 2 puff inhalation QID PRN 05/08/23 06/02/24 12/16/23 10:40 aerosol inhaler Shortness Of Breath Or Wheezing alprazolam 1 mg tablet 1 mg PO TID PRN Anxiety 05/08/23 06/02/24 12/15/23 docusate sodium 100 mg capsule 100 mg PO BID 05/08/23 06/02/24 02/09/24 metoprolol succinate 50 mg 50 mg PO QAM 05/08/23 06/02/24 02/09/24 tablet,extended release 24 hr (Toprol XL) pantoprazole 40 mg tablet,delayed 40 mg PO BID 05/08/23 06/02/24 02/09/24 release clopidogrel 75 mg tablet (Plavix) 75 mg PO DAILY #30 tabs 05/10/23 06/02/24 02/09/24 prochlorperazine maleate 5 mg 5 mg PO TID PRN Nausea 06/13/23 06/02/24 12/16/23 10:40 tablet aspirin 81 mg tablet,delayed 81 mg PO DAILY 09/19/23 06/02/24 02/09/24 release hydralazine 25 mg tablet 25 mg PO TID 09/19/23 06/02/24 02/09/24 nifedipine 60 mg tablet,extended 120 mg PO DAILY 09/19/23 06/02/24 02/09/24 release 24 hr lidocaine 5 % topical patch 1 patch transdermal QAM #14 ea 12/13/23 06/02/24 02/09/24 ascorbic acid (vitamin C) 500 mg 500 mg PO QAM #20 tabs 04/03/24 06/02/24 Unknown tablet (Vitamin C) clonidine HCl 0.1 mg tablet 0.1 mg PO Q8H #90 tabs 04/03/24 06/02/24 Unknown cyanocobalamin (vitamin B-12) 500 1,000 mcg (2 x 500 mcg) PO QAM #30 04/03/24 06/02/24 Unknown mcg tablet tabs naloxone 4 mg/actuation nasal spray 4 mg intranasal ONCE PRN opioid 04/03/24 06/02/24 Unknown overdose #2 ea oxycodone 20 mg tablet 20 mg PO Q6H PRN pain #12 tabs 04/03/24 06/02/24 Unknown polyethylene glycol 3350 17 gram 17 g PO BID #0 ea 04/03/24 06/02/24 Unknown oral powder packet (Miralax) pregabalin 100 mg capsule (Lyrica) 100 mg PO TID #90 caps 04/03/24 06/02/24 Unknown sennosides 8.6 mg tablet (Senokot) 17.2 mg (2 x 8.6 mg) PO BID PRN 04/03/24 06/02/24 Unknown constipation #60 tabs duloxetine 60 mg capsule,delayed 60 mg PO DAILY 06/02/24 06/02/24 Unknown release insulin aspart 5 unit subcut TIDM 06/02/24 06/02/24 Unknown (niacinamide)(U-100) 100 unit/mL(3 mL) subcutaneous pen (Fiasp FlexTouch U-100 Insulin) lisinopril 20 mg tablet 20 mg PO DAILY 06/02/24 06/02/24 Unknown quetiapine 50 mg tablet 50 mg PO HS 06/02/24 06/02/24 Unknown ropinirole 4 mg tablet 8 mg PO HS 06/02/24 06/02/24 Unknown Active Medications Generic Name Dose Route Start Last Admin Trade Name John PRN Reason Stop Dose Admin Aspirin 81 mg 06/02/24 09:32 06/03/24 08:01 Aspirin 81 Mg Ectab PO 07/02/24 09:31 81 mg DAILY RICKY Administration Clonidine HCl 0.1 mg 06/02/24 09:32 06/04/24 09:11 Clonidine Hcl 0.1 Mg Tab PO 07/02/24 09:31 Not Given Q8@0000,0800,1600 RICKY Clopidogrel Bisulfate 75 mg 06/02/24 09:32 06/03/24 08:01 Clopidogrel Bisulfate 75 Mg Tab PO 07/02/24 09:31 75 mg DAILY RICKY Administration Dextrose 25 - 50 ml 06/02/24 09:32 06/04/24 06:50 Dextrose 50% 50 Ml Syringe IV 07/02/24 09:31 50 ml UD PRN Administration Hypoglycemia Protocol Protocol Docusate Sodium 100 mg 06/02/24 09:32 06/04/24 09:10 Docusate Sodium 100 Mg Cap PO 07/02/24 09:31 Not Given BID RICKY Duloxetine HCl 60 mg 06/02/24 09:32 06/03/24 08:01 Duloxetine Hcl 60 Mg Cap PO 07/02/24 09:31 60 mg DAILY RICKY Administration Heparin Sodium (Porcine) 5,000 units 06/02/24 21:00 06/04/24 09:03 Heparin Sod 5,000 Unit/0.5 Ml Vial SQ 07/02/24 20:59 Not Given Q12 RICKY Hydralazine HCl 25 mg 06/02/24 09:32 06/04/24 09:11 Hydralazine Hcl 25 Mg Tab PO 07/02/24 09:31 Not Given TID RICKY Hydromorphone HCl 1 mg 06/02/24 09:32 06/04/24 09:01 Hydromorphone Inj 1 Mg/Ml Syringe IV 06/16/24 09:31 1 mg Q3H PRN Administration Severe Pain (7,8,9,10) on NRS Pantoprazole Sodium 40 mg in 10 mls @ 5 mls/min 06/02/24 21:00 06/04/24 07:57 Protonix IV 07/02/24 20:59 5 mls/min BID RICKY Administration Acetaminophen 1,000 mg in 100 mls @ 400 mls/hr 06/02/24 09:32 06/04/24 08:38 Ofirmev IV 06/05/24 09:31 Infused Q8H PRN Infusion Fever/Mild Pain (Pain 1,2,3) Prochlorperazine 5 mg/ Syringe 5 mls @ 5 mls/min 06/02/24 12:02 06/03/24 12:17 IV 07/02/24 12:01 5 mls/min Q6H PRN Administration Nausea And Vomiting Insulin Aspart 0 units 06/02/24 11:30 06/04/24 08:37 Insulin Aspart Per Unit Charge SC 07/02/24 11:29 Not Given ACHS [facility] Insulin Glargine 5 units 06/02/24 21:00 06/04/24 08:37 Lantus Per Unit Charge SQ 07/02/24 20:59 Not Given BID RICKY Lisinopril 20 mg 06/02/24 09:32 06/03/24 08:01 Lisinopril 20 Mg Tab PO 07/02/24 09:31 20 mg DAILY RICKY Administration Metoprolol Succinate 50 mg 06/02/24 09:32 06/03/24 08:01 Metoprolol Succ 50mg Ext Rel Tab PO 07/02/24 09:31 50 mg QAM RICKY Administration Nifedipine 120 mg 06/02/24 09:32 06/03/24 08:00 Nifedipine Extended Rel 30 Mg Tabcr PO 07/02/24 09:31 120 mg DAILY RICKY Administration Ondansetron HCl 4 mg 06/02/24 09:32 06/04/24 07:54 Ondansetron Inj 2 Mg/Ml 2 Ml Vial IV 07/02/24 09:31 4 mg Q6H PRN Administration Nausea Polyethylene Glycol 17 gm 06/02/24 09:32 06/04/24 09:10 Polyethylene (Miralax) 17 Gm Pack PO 07/02/24 09:31 Not Given BID RICKY Pregabalin 100 mg 06/02/24 09:32 06/03/24 21:01 Pregabalin 100 Mg Cap PO 07/02/24 09:31 100 mg TID RICKY Administration Quetiapine Fumarate 50 mg 06/02/24 21:00 06/03/24 20:51 Quetiapine Fumarate 25 Mg Tablet PO 07/02/24 20:59 50 mg HS RICKY Administration Sennosides 17.2 mg 06/02/24 09:32 06/02/24 20:58 Senna 8.6 Mg Tab PO 07/02/24 09:31 17.2 mg BID PRN Administration constipation Exercise / Class Metabolic Activity Metabolic Activity: II 4-5 Yardwork/Stairs/Walk up hill Physical Exam Constitutional: no acute distress Mouth: + dentition abnormality, + caries and + poor dentition (Very poor dentition. Few remaining teeth; none loose. ) Thyromental Distance: > or= 3.5 Finger Breadths Mallampati Class: III Neck: + visual inspection normal Respiratory: + respiratory effort normal and + clear to auscultation bilaterally; no respiratory distress Cardiovascular: + regular rate and + regular rhythm; no murmur Musculoskeletal: no limited cervical ROM Psychiatric: + alert and + oriented x 3 ASA ASA3 Proposed Anesthesia Proposed Anesthesia: MAC Risk / Benefits Reviewed With: PT / POA / Parent / Guardian, Accepts Plan and Informed Consent Obtained
--- NOTE | 2024-06-04 10:59 | GI REPORT ---
[facility] Patient: EILEEN ESCOBAR : 1965 Sex at : Female Age: 59 Years Procedure: Upper GI endoscopy Date: 06/04/2024 Attending Physician: Festus Donnelly MD Referring MD: Ashok Clemons Indications: - Nausea and vomiting - Hematemesis Medications: - Monitored Anesthesia Care Complications: - No immediate complications. Procedure: - Prior to the procedure, a History and Physical was performed, and patient medications and allergies were reviewed. The patient's tolerance of previous anesthesia was also reviewed. The risks and benefits of the procedure and the sedation options and risks were discussed with the patient. All questions were answered, and informed consent was obtained. [Anticoagulant Agents] [Days Prior to Procedure]. [ASA Grade]. After reviewing the risks and benefits, the patient was deemed in satisfactory condition to undergo the procedure. - The egd scope was introduced through the mouth and advanced to the second part of the duodenum. - The upper GI endoscopy was accomplished without difficulty. - The patient tolerated the procedure well. Findings: - Patchy mild inflammation characterized by erythema was found in the gastric antrum. Biopsies were taken with a cold forceps for [Purpose]. - LA Grade D (one or more mucosal breaks involving at least 75% of esophageal circumference) esophagitis was found in the lower and middle third of the esophagus. Biopsies were taken with a cold forceps for histology. - The examined duodenum was normal. Impression: - Gastritis, characterized by erythema. Biopsied. - LA Grade D esophagitis. Biopsied. - Normal examined duodenum. Recommendation: - Resume previous diet. - Patient has a contact number available for emergencies. The signs and symptoms of potential delayed complications were discussed with the patient. Return to normal activities tomorrow. Written discharge instructions were provided to the patient. Procedure Code(s): - 80667, Esophagogastroduodenoscopy, flexible, transoral; with biopsy, single or multiple Diagnosis Code(s): - K92.0, Hematemesis - K29.70, Gastritis, unspecified, without bleeding - K20.90, Esophagitis, unspecified without bleeding CPT(R) - 202 copyright [employer]. All Rights Reserved. The CPT codes, CCI edits and ICD codes generated are intended as suggestions and were generated based on input data. These codes are preliminary and upon bottling line operator review may be revised to meet current compliance and payer requirements. The provider is responsible for the final determination of appropriate codes, and modifiers. Festus Donnelly MD This document has been electronically signed. Note Initiated:06/04/2024 Note Completed:06/04/2024 10:58 AM \\[email or web address]\[email or web address]\Results\LIVE\[id number]
[2024-06-04] MEDS: PROPOFOL IV EMULSION 10 MG/ML 20 ML VIAL IV ONE (12:06)
[2024-06-04] MEDS: LIDOCAINE 2% 2 ML VIAL/AMP(20MG/ML) INFIL ONE (12:06)
[2024-06-04] MEDS: SUCRALFATE 1 GM/10 ML UDC PO SCH ×2 (13:44→17:00)
[2024-06-04] MEDS ORDERED: HYDROmorphone INJ 0.5 MG/0.5 ML SYR IV PRN (14:04)
[2024-06-04] MEDS: HYDROmorphone INJ 0.5 MG/0.5 ML SYR IV STA (14:38)
[2024-06-04] MEDS: ALUMINUM/MAGNESIUM SUSP 30 ML UDC PO STA (14:38)
--- NOTE | 2024-06-04 15:55 | Anesthesiology Progress Note ---
Date of Service June 04, 2024 Anesthesia Post Procedure Vital Signs Vital Signs: Temp Pulse Pulse Pulse Resp BP Pulse Ox 06/04/24 14:43 36.4 C L 113 H 19 160/66 H 95 06/04/24 14:01 66 06/04/24 13:43 207/75 H 06/04/24 11:28 63 18 150/84 H 93 06/04/24 11:13 62 18 125/58 L 96 06/04/24 10:58 55 L 16 106/52 L 98 06/04/24 10:05 36.5 C 66 16 146/68 H 95 06/04/24 09:26 06/04/24 07:25 36.5 C 63 18 120/57 L 92 06/04/24 07:21 61 06/04/24 02:39 36.5 C 66 18 92/58 L 96 06/03/24 23:12 68 06/03/24 22:55 36.8 C 73 18 95/54 L 94 06/03/24 19:51 36.6 C 70 18 114/55 L 94 06/03/24 18:14 70 06/03/24 16:15 36.8 C 73 15 99/64 L 95 O2 Del Method 06/04/24 14:43 Room Air 06/04/24 14:01 06/04/24 13:43 06/04/24 11:28 Room Air 06/04/24 11:13 Room Air 06/04/24 10:58 Room Air 06/04/24 10:05 Room Air 06/04/24 09:26 Room Air 06/04/24 07:25 Room Air 06/04/24 07:21 06/04/24 02:39 Room Air 06/03/24 23:12 06/03/24 22:55 Room Air 06/03/24 19:51 Room Air 06/03/24 18:14 06/03/24 16:15 Room Air Pain Intensity Abdomen: Pain Intensity: 7 Transfer of Care Handoff Completed per policy Notes Mental Status: alert / awake / arousable and participated in evaluation Nausea / Vomiting: adequately controlled Pain: adequately controlled Airway Patency, RR, SpO2: stable & adequate BP & HR: stable & adequate Hydration State: stable & adequate Anesthetic Complications: no major complications apparent and Pt Satisfied with anesthetic care
[2024-06-04] MEDS: ACETAMINOPHEN 1,000 MG/100 ML VIAL IV STA (18:16)
[2024-06-04] MEDS: HYDROmorphone INJ 1 MG/ML SYRINGE IV PRN (19:24)
[2024-06-04] MEDS: PANTOprazole 40 MG/10 ML SYR IV SCH (20:12)
[2024-06-04] MEDS: oxyCODONE HCL IR 5 MG TAB (IMMEDIATE RELEASE) PO PRN (22:30)
--- NOTE | 2024-06-05 05:15 | Electrocardiogram Report ---
Test Reason : Blood Pressure : */* mmHG Vent. Rate : 117 BPM Atrial Rate : 117 BPM P-R Int : 138 ms QRS Dur : 86 ms QT Int : 320 ms P-R-T Axes : 79 67 88 degrees QTcB Int : 447 ms Sinus tachycardia When compared with ECG of 13-Mar-2024 17:49, Vent. rate has increased by 50 bpm Confirmed by Andre Hinojosa ([id number]) on 06/05/2024 5:15:49 AM Referred By: Confirmed By: Andre Hinojosa
[2024-06-05 06:47] LABS: BUN Creatinine Ratio 31.4 (10-20); Basophils # (auto) 0.04 K/uL (0.00-0.20); Basophils % (auto) 0.3 %; Calcium 8.4 mg/dl (8.6-10.3); Creatinine Clr Calc Pharmacy 101.9 ml/min; Eosinophils # (auto) 0.29 K/uL (0.00-0.50); Eosinophils % (auto) 2.1 %; Hematocrit (blood only) 35.5 % (37.0-47.0); Hemoglobin 10.9 g/dl (12.0-16.0); Immature Granulocytes # (auto) 0.07 K/uL (0.01-0.20); Immature Granulocytes % (auto) 0.5 %; Lymphocytes # (auto) 2.48 K/uL (1.20-3.40); Mean Corpuscular Hemoglobin 23.6 pg (25.0-34.0); Mean Corpuscular Hgb Conc 30.7 g/dL (32.0-36.0); Mean Platelet Volume 10.2 fL (9.4-12.4); Monocytes # (auto) 0.78 K/uL (0.11-0.59); Monocytes % (auto) 5.7 %; Neutrophils # (auto) 10.14 K/uL (1.40-6.50); Neutrophils % (auto) 73.4 %; Platelet Count 306 K/uL (130-400); Potassium 3.8 mmol/L (3.5-5.1); RDW Coefficient of Variation 15.1 % (11.5-14.5); RDW Standard Deviation 41.8 fL (36.4-46.3); Red Blood Count 4.61 M/uL (4.20-5.40)
--- NOTE | 2024-06-05 10:39 | Gastroenterology Progress Note ---
Date of Service June 05, 2024 Assessment & Plan (1) Esophagitis: Plan: -Protonix 40 mg BID -Carafate 1 gm four times daily before meals and at bedtime. Admission and Anticipated Discharge Date Admission Date: June 02, 2024 Supervising Physician Co-Signing Physician Notes I saw and examined this patient with our nurse practitioner and agree with her assessment and plan. Still with substernal pain but eating better today. Suspect symptoms are related to her severe erosive esophagitis. Continue PPI a nd sucralfate. Await biopsies to exclude any infectious etiology for the esophagitis. Subjective Patient is a 59 yo female who had an EGD on 06/04/24. Findings consistent with Grade C esophagitis. N/V subsided. Review of Systems Constitutional: no fever and no chills Gastrointestinal: no nausea, no vomiting, no hematemesis and no melena Physical Exam Constitutional: well developed Respiratory: normal respiratory effort Gastrointestinal (Abdomen): normal bowel sounds, soft, nontender, no hepatos plenomegaly Results & Data Results & Data Vital Signs (Past 12 Hours) Vital Signs Temp Pulse Pulse Resp BP Pulse Ox O2 Del Method 06/05/24 07:57 36.6 C 71 18 162/69 H 94 Room Air 06/05/24 07:28 Room Air 06/05/24 07:27 70 06/05/24 02:32 36.5 C 71 18 118/64 94 Room Air 06/04/24 22:42 36.6 C 75 18 116/68 94 Room Air PG Care Time/CCT Total # of Minutes Spent Total Time Spent with Patient: Total time spent is greater than 50% in coordination of care (as documented) at patient's floor/unit and/or counseling patient: Coding Level of Care Code 17537 SUB INP/OBS CARE 2/35MIN Diagnoses Esophagitis K20.90
[2024-06-05] MEDS: oxyCODONE HCL IR 5 MG TAB (IMMEDIATE RELEASE) PO PRN (10:41)
--- NOTE | 2024-06-05 16:21 | Hospitalist Progress Note ---
Date of Service June 05, 2024 Assessment & Plan (1) Acute dehydration: Plan: Volume contracted on arrival, now resolved Patient reports she has not been able to tolerate solid hgb dropped after hydration 14-10 EGD in the AM 06/04, esophagitis and gastritis without ulcer on protonix, starting carafate, pt states typically takes oxycodone 20 mg at home, all meds held when NPO, so some pain issues likely from withdrawal and tolerance, restarted 20 mg po q6h prn and is improved (2) Abdominal pain: Plan: Acute on chronic, CT without acute pathology, with vascular history consider intestinal angina vs constipation ? IV acetaminophen and Dilaudid as needed for pain control Heat application with K-pad as needed iv protonix bid, carafate for erosive esophagitis N/v resolved, advance diet (3) Uncontrolled hypertension: Plan: Resolved Restart clonidine, hydralazine, lisinopril, nifedipine, and metoprolol as to lerated (4) Type 2 diabetes mellitus: Plan: Last A1c at 7.4% on 03/01/2024 Glucose 264 on admission Patient normally takes Lantus 10u HS, but has not been taking over the past 3-4 days due to poor oral intake We will give Lantus 5u BID Loose SSI with target BSG range 120-150mg/dL, CF 50, carb ratio 15 BSG q6h for now Adjust regimen as needed a1c 7.1 (5) Leukocytosis: Plan: improving espophagitis not consistent with infection on egd, pathology pending Procalcitonin WNL Patient reports negative home test for COVID/flu the week prior to arrival (was having reported low-grade fever of 99 F) No clear source on arrival UA without infection CXR ordered, no pneumonia Plan Full code VTE PPx: SCDs; hold chemical DVT PPx in the setting of hematemesis for 24 hours (please add on chemical DVT PPx for extended stay) Admission and Anticipated Discharge Date Admission Date: June 02, 2024 Subjective pain is better, pt is less tearful still some abdominal pain Physical Exam Physical Exam: nabs, soft no rebound, tender in epigastrium, RUQ cardiac exam is regular Results & Data Results & Data Vital Signs (Past 12 Hours) Vital Signs Temp Pulse Pulse Resp BP Pulse Ox O2 Del Method 06/05/24 15:24 75 06/05/24 15:19 98.2 F 68 17 147/62 H 94 Room Air 06/05/24 12:30 98.2 F 71 18 154/75 H 95 Room Air 06/05/24 07:57 97.9 F 71 18 162/69 H 94 Room Air 06/05/24 07:28 Room Air 06/05/24 07:27 70 Laboratory Results Reviewed CBC reviewed chemistry MCV is low but iron is within therapeutic range PG Care Time/CCT Total # of Minutes Spent Total Time Spent with Patient: Total time spent is greater than 50% in coordination of care (as documented) at patient's floor/unit and/or counseling patient: Coding Level of Care Code 49982 SUB INP/OBS CARE 2/35MIN Diagnoses Acute dehydration E86.0 Abdominal pain R10.30 Abdominal location: lower abdomen, unspecified Uncontrolled hypertension I10 Type 2 diabetes mellitus E11.69; Z79.4 Diabetes mellitus complication status: with other specified complication Diabetes mellitus rodent exterminator insulin use: with senior care use Leukocytosis D72.829 (2) Abdominal pain Abdominal location: lower abdomen, unspecified Qualified Code(s): R10.30 - Lower abdominal pain, unspecified (4) Type 2 diabetes mellitus Diabetes mellitus complication status: with other specified complication Diabetes mellitus senior care insulin use: with rodent exterminator use Qualified Code(s): E11.69 - Type 2 diabetes mellitus with other specified complication; Z79.4 - [facility]P (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
--- NOTE | 2024-06-06 11:27 | Hospitalist Progress Note ---
Date of Service June 06, 2024 Assessment & Plan (1) Esophagitis determined by endoscopy: Plan: Patient reports she has not been able to tolerate solid due to pain EGD done 06/04, showed esophagitis and gastritis without ulcer Currently on protonix, starting carafate, pt states typically takes oxycodone 20 mg at home Still complaining of pain during eating (2) Acute dehydration: Plan: Resolved (3) Abdominal pain: Plan: Acute on chronic, CT without acute pathology, with vascular history consider intestinal angina vs constipation ? IV acetaminophen and Dilaudid as needed for pain control Heat application with K-pad as needed iv protonix bid, carafate for erosive esophagitis N/v resolved, advance diet (4) Uncontrolled hypertension: Plan: Resolved Restart clonidine, hydralazine, lisinopril, nifedipine, and metoprolol as tolerated (5) Type 2 diabetes mellitus: Plan: Last A1c at 7.4% on 03/01/2024 Glucose 264 on admission Patient normally takes Lantus 10u HS, but has not been taking over the past 3-4 days due to poor oral intake We will give Lantus 5u BID Loose SSI with target BSG range 120-150mg/dL, CF 50, carb ratio 15 BSG q6h for now Adjust regimen as needed a1c 7.1 (6) Leukocytosis: Plan: improving espophagitis not consistent with infection on egd, pathology pending Procalcitonin WNL Patient reports negative home test for COVID/flu the week prior to arrival (was having reported low-grade fever of 99 F) No clear source on arrival UA without infection CXR ordered, no pneumonia Plan Full code VTE PPx: SCDs; hold chemical DVT PPx in the setting of hematemesis for 24 hours (please add on chemical DVT PPx for extended stay) Hopefully d/c in the next 24 hrs Admission and Anticipated Discharge Date Admission Date: June 02, 2024 Subjective patient seen and examined, still complaining of severe pain when trying to eat Review of Systems Review of Systems: All systems reviewed are negative, apart from the ones contained in the history. Physical Exam Physical Exam: The patient is awake, alert and oriented 3, well developed and well nourished, normocephalic and atraumatic, lying in bed and in no acute distress. HEENT--PERRL, EOMI, mucous membranes and oropharynx mildly dry Neck--supple. No JVD. No bruits. Thyroid normal, trachea midline, no adenopathy. Heart--normal S1 and S2. No murmurs, rubs or gallops. Lungs--clear bilaterally, no respiratory distress, no accessory muscle use. Abdomen--normal bowel sounds and soft. Extremities--no cyanosis or clubbing. No edema. Dermatologic--normal skin turgor, normal color, no abnormal lymph nodes, no rash. Neurologic--cranial nerves II through XII grossly intact. Rheumatologic--normal range of motion. Psychiatric--normal affect. Results & Data Results & Data Vital Signs (Past 12 Hours) Vital Signs Temp Pulse Resp BP Pulse Ox O2 Del Method 06/06/24 07:54 98.1 F 68 18 162/75 H 91 Room Air 06/06/24 03:49 98.1 F 65 16 118/61 91 Room Air PG Care Time/CCT Total # of Minutes Spent Total Time Spent with Patient: Total time spent is greater than 50% in coordination of care (as documented) at patient's floor/unit and/or counseling patient: Coding Level of Care Code 14346 SUB INP/OBS CARE 2/35MIN Diagnoses Esophagitis determined by endoscopy K20.90 Acute dehydration E86.0 Abdominal pain R10.30 Abdominal location: lower abdomen, unspecified Uncontrolled hypertension I10 Type 2 diabetes mellitus E11.69; Z79.4 Diabetes mellitus complication status: with other specified complication Diabetes mellitus long term care administrator insulin use: with long term care administrator use Leukocytosis D72.829 Time Spent (min) 35 (3) Abdominal pain Abdominal location: lower abdomen, unspecified Qualified Code(s): R10.30 - Lower abdominal pain, unspecified (5) Type 2 diabetes mellitus Diabetes mellitus complication status: with other specified complication Diabetes mellitus long term care administrator insulin use: with senior living use Qualified Code(s): E11.69 - Type 2 diabetes mellitus with other specified complication; Z79.4 - [facility] (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
[2024-06-06] MEDS ORDERED: Nursing to Pharmacy Communication SCH (16:15)
[2024-06-06] MEDS ORDERED: HYDROmorphone INJ 0.5 MG/0.5 ML SYR IV PRN (16:18)
[2024-06-06] MEDS: HYDROmorphone INJ 1 MG/ML SYRINGE IV PRN (17:25)
--- NOTE | 2024-06-07 11:20 | Hospitalist Progress Note ---
Date of Service June 07, 2024 Assessment & Plan (1) Esophagitis determined by endoscopy: Plan: Patient reports she has not been able to tolerate solid due to pain EGD done 06/04, showed esophagitis and gastritis without ulcer Currently on protonix, starting carafate, pt states typically takes oxycodone 20 mg at home Still complaining of pain during eating, willing to try jello (2) Abdominal pain: Plan: Acute on chronic, CT without acute pathology, with vascular history consider intestinal angina vs constipation ? IV acetaminophen and Dilaudid as needed for pain control Heat application with K-pad as needed iv protonix bid, carafate for erosive esophagitis N/v resolved, advance diet (3) Uncontrolled hypertension: Plan: Resolved Restart clonidine, hydralazine, lisinopril, nifedipine, and metoprolol as tolerated (4) Type 2 diabetes mellitus: Plan: Last A1c at 7.4% on 03/01/2024 Glucose 264 on admission Patient normally takes Lantus 10u HS, but has not been taking over the past 3-4 days due to poor oral intake We will give Lantus 5u BID Loose SSI with target BSG range 120-150mg/dL, CF 50, carb ratio 15 BSG q6h for now Adjust regimen as needed a1c 7.1 (5) Acute dehydration: Plan: Resolved (6) Leukocytosis: Plan: improving espophagitis not consistent with infection on egd, pathology pending Procalcitonin WNL Patient reports negative home test for COVID/flu the week prior to arrival (was having reported low-grade fever of 99 F) No clear source on arrival UA without infection CXR ordered, no pneumonia Plan Full code VTE PPx: SCDs; hold chemical DVT PPx in the setting of hematemesis for 24 hours (please add on chemical DVT PPx for extended stay) Hopefully d/c in the next 24 hrs Admission and Anticipated Discharge Date Admission Date: June 02, 2024 Subjective patient seen and examined, still complaining of severe pain when trying to eat Review of Systems Review of Systems: All systems reviewed are negative, apart from the ones contained in the history. Physical Exam Physical Exam: The patient is awake, alert and oriented 3, well developed and well nourished, normocephalic and atraumatic, lying in bed and in no acute distress. HEENT--PERRL, EOMI, mucous membranes and oropharynx mildly dry Neck--supple. No JVD. No bruits. Thyroid normal, trachea midline, no adenopathy. Heart--normal S1 and S2. No murmurs, rubs or gallops. Lungs--clear bilaterally, no respiratory distress, no accessory muscle use. Abdomen--normal bowel sounds and soft. Extremities--no cyanosis or clubbing. No edema. Dermatologic--normal skin turgor, normal color, no abnormal lymph nodes, no rash. Neurologic--cranial nerves II through XII grossly intact. Rheumatologic--normal range of motion. Psychiatric--normal affect. Results & Data Results & Data Vital Signs (Past 12 Hours) Vital Signs Temp Pulse Pulse Resp BP Pulse Ox O2 Del Method 06/07/24 11:06 65 06/07/24 10:56 Room Air 06/07/24 08:19 98.1 F 71 18 139/62 92 Room Air 06/07/24 04:42 98.1 F 65 17 134/67 94 Room Air 06/07/24 02:25 70 06/07/24 00:07 98.1 F 63 16 151/70 H 90 Room Air PG Care Time/CCT Total # of Minutes Spent Total Time Spent with Patient: Total time spent is greater than 50% in coordination of care (as documented) at patient's floor/unit and/or counseling patient: Coding Level of Care Code 01446 SUB INP/OBS CARE 2/35MIN Diagnoses Esophagitis determined by endoscopy K20.90 Abdominal pain R10.30 Abdominal location: lower abdomen, unspecified Uncontrolled hypertension I10 Type 2 diabetes mellitus E11.69; Z79.4 Diabetes mellitus complication status: with other specified complication Diabetes mellitus fdc insulin use: with exterminator helper termite use Acute dehydration E86.0 Leukocytosis D72.829 Time Spent (min) 35 (2) Abdominal pain Abdominal location: lower abdomen, unspecified Qualified Code(s): R10.30 - Lower abdominal pain, unspecified (4) Type 2 diabetes mellitus Diabetes mellitus complication status: with other specified complication Diabetes mellitus exterminator helper termite insulin use: with exterminator helper termite use Qualified Code(s): E11.69 - Type 2 diabetes mellitus with other specified complication; Z79.4 - alf (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
--- NOTE | 2024-06-08 11:22 | Hospitalist Progress Note ---
Date of Service June 08, 2024 Assessment & Plan (1) Esophagitis determined by endoscopy: Plan: Patient reports she has not been able to tolerate solid due to pain EGD done 06/04, showed esophagitis and gastritis without ulcer Currently on protonix, starting carafate, pt states typically takes oxycodone 20 mg at home Still complaining of pain during eating, willing to try jello and applesauce (2) Abdominal pain: Plan: Acute on chronic, CT without acute pathology, with vascular history consider intestinal angina vs constipation ? IV acetaminophen and Dilaudid as needed for pain control Heat application with K-pad as needed iv protonix bid, carafate for erosive esophagitis N/v resolved, advance diet (3) Uncontrolled hypertension: Plan: Resolved Restarted clonidine, hydralazine, lisinopril, nifedipine, and metoprolol as tolerated (4) Type 2 diabetes mellitus: Plan: Last A1c at 7.4% on 03/01/2024 Glucose 264 on admission Patient normally takes Lantus 10u HS, but has not been taking over the past 3-4 days due to poor oral intake We will give Lantus 5u BID Loose SSI with target BSG range 120-150mg/dL, CF 50, carb ratio 15 BSG q6h for now Adjust regimen as needed a1c 7.1 (5) Acute dehydration: Plan: Resolved (6) Leukocytosis: Plan: improving espophagitis not consistent with infection on egd, pathology pending Procalcitonin WNL Patient reports negative home test for COVID/flu the week prior to arrival (was having reported low-grade fever of 99 F) No clear source on arrival UA without infection CXR ordered, no pneumonia Plan Full code VTE PPx: SCDs; hold chemical DVT PPx in the setting of hematemesis for 24 hours (please add on chemical DVT PPx for extended stay) Hopefully d/c in the next 24 hrs Admission and Anticipated Discharge Date Admission Date: June 02, 2024 Subjective patient seen and examined, still complaining of severe pain when trying to eat, tolerating jello and applesauce Review of Systems Review of Systems: All systems reviewed are negative, apart from the ones contained in the history. Physical Exam Physical Exam: The patient is awake, alert and oriented 3, well developed and well nourished, normocephalic and atraumatic, lying in bed and in no acute distress. HEENT--PERRL, EOMI, mucous membranes and oropharynx mildly dry Neck--supple. No JVD. No bruits. Thyroid normal, trachea midline, no adenopathy. Heart--normal S1 and S2. No murmurs, rubs or gallops. Lungs--clear bilaterally, no respiratory distress, no accessory muscle use. Abdomen--normal bowel sounds and soft. Extremities--no cyanosis or clubbing. No edema. right bka Dermatologic--normal skin turgor, normal color, no abnormal lymph nodes, no rash. Neurologic--cranial nerves II through XII grossly intact. Rheumatologic--normal range of motion. Psychiatric--normal affect. Results & Data Results & Data Vital Signs (Past 12 Hours) Vital Signs Temp Pulse Pulse Resp BP Pulse Ox O2 Del Method 06/08/24 10:41 61 06/08/24 10:26 Room Air 06/08/24 08:00 98.2 F 60 20 148/63 H 93 Room Air 06/08/24 04:41 98.2 F 67 16 145/58 H 95 Room Air 06/08/24 00:29 98.1 F 59 L 16 148/67 H 92 Room Air PG Care Time/CCT Total # of Minutes Spent Total Time Spent with Patient: Total time spent is greater than 50% in coordination of care (as documented) at patient's floor/unit and/or counseling patient: Coding Level of Care Code 07243 SUB INP/OBS CARE 2/35MIN Diagnoses Esophagitis determined by endoscopy K20.90 Abdominal pain R10.30 Abdominal location: lower abdomen, unspecified Uncontrolled hypertension I10 Type 2 diabetes mellitus E11.69; Z79.4 Diabetes mellitus complication status: with other specified complication Diabetes mellitus halfway insulin use: with halfway use Acute dehydration E86.0 Leukocytosis D72.829 Time Spent (min) 35 (2) Abdominal pain Abdominal location: lower abdomen, unspecified Qualified Code(s): R10.30 - Lower abdominal pain, unspecified (4) Type 2 diabetes mellitus Diabetes mellitus complication status: with other specified complication Diabetes mellitus halfway insulin use: with extermination inspector use Qualified Code(s): E11.69 - Type 2 diabetes mellitus with other specified complication; Z79.4 - [facility] (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
[2024-06-09 07:22] LABS: Hematocrit (blood only) 36.5 % (37.0-47.0); Hemoglobin 11.2 g/dl (12.0-16.0); Mean Corpuscular Hemoglobin 23.7 pg (25.0-34.0); Mean Corpuscular Hgb Conc 30.7 g/dL (32.0-36.0); Mean Corpuscular Volume 77.3 fL (80.0-100.0); Mean Platelet Volume 10.2 fL (9.4-12.4); Platelet Count 302 K/uL (130-400); RDW Coefficient of Variation 15.2 % (11.5-14.5); RDW Standard Deviation 42.5 fL (36.4-46.3); Red Blood Count 4.72 M/uL (4.20-5.40); White Blood Count 10.77 K/ul (4.8-10.8)
[2024-06-09 07:44] LABS: BUN Creatinine Ratio 25.5 (10-20); Creatinine Clr Calc Pharmacy 110.4 ml/min; Potassium 4.2 mmol/L (3.5-5.1)
--- NOTE | 2024-06-09 09:48 | Hospitalist Progress Note ---
Date of Service June 09, 2024 Assessment & Plan (1) Esophagitis determined by endoscopy: Plan: Patient reports she has not been able to tolerate solid due to pain EGD done 06/04, showed esophagitis and gastritis without ulcer Currently on protonix, starting carafate, pt states typically takes oxycodone 20 mg at home Still complaining of pain during eating, willing to try jello and applesauce (2) Abdominal pain: Plan: Acute on chronic, CT without acute pathology, with vascular history consider intestinal angina vs constipation ? IV acetaminophen and Dilaudid as needed for pain control Heat application with K-pad as needed iv protonix bid, carafate for erosive esophagitis N/v resolved, advance diet (3) Uncontrolled hypertension: Plan: Resolved Restarted clonidine, hydralazine, lisinopril, nifedipine, and metoprolol as tolerated (4) Type 2 diabetes mellitus: Plan: Last A1c at 7.4% on 03/01/2024 Glucose 264 on admission Patient normally takes Lantus 10u HS, but has not been taking over the past 3-4 days due to poor oral intake We will give Lantus 5u BID Loose SSI with target BSG range 120-150mg/dL, CF 50, carb ratio 15 BSG q6h for now Adjust regimen as needed a1c 7.1 (5) Acute dehydration: Plan: Resolved (6) Leukocytosis: Plan: improving espophagitis not consistent with infection on egd, pathology pending Procalcitonin WNL Patient reports negative home test for COVID/flu the week prior to arrival (was having reported low-grade fever of 99 F) No clear source on arrival UA without infection CXR ordered, no pneumonia Plan Full code VTE PPx: SCDs; hold chemical DVT PPx in the setting of hematemesis for 24 hours (please add on chemical DVT PPx for extended stay) Hopefully d/c in the next 24 hrs, I was going to d/c today, but patient says she still has a lot of pains Admission and Anticipated Discharge Date Admission Date: June 02, 2024 Subjective patient seen and examined, still complaining of severe pain when trying to eat, tolerating jello and applesauce Review of Systems Review of Systems: All systems reviewed are negative, apart from the ones contained in the history. Physical Exam Physical Exam: The patient is awake, alert and oriented 3, well developed and well nourished, normocephalic and atraumatic, lying in bed and in no acute distress. HEENT--PERRL, EOMI, mucous membranes and oropharynx mildly dry Neck--supple. No JVD. No bruits. Thyroid normal, trachea midline, no adenopathy. Heart--normal S1 and S2. No murmurs, rubs or gallops. Lungs--clear bilaterally, no respiratory distress, no accessory muscle use. Abdomen--normal bowel sounds and soft. Extremities--no cyanosis or clubbing. No edema. right bka Dermatologic--normal skin turgor, normal color, no abnormal lymph nodes, no rash . Neurologic--cranial nerves II through XII grossly intact. Rheumatologic--normal range of motion. Psychiatric--normal affect. Results & Data Results & Data Vital Signs (Past 12 Hours) Vital Signs Temp Pulse Pulse Resp BP Pulse Ox O2 Del Method 06/09/24 07:51 59 L 06/09/24 07:25 98.2 F 69 19 108/68 93 Room Air 06/09/24 04:14 97.9 F 58 L 17 152/74 H 91 Room Air 06/09/24 01:00 59 L 06/09/24 00:31 97.9 F 56 L 17 113/62 91 Room Air PG Care Time/CCT Total # of Minutes Spent Total Time Spent with Patient: Total time spent is greater than 50% in coordination of care (as documented) at patient's floor/unit and/or counseling patient: Coding Level of Care Code 18124 SUB INP/OBS CARE 2/35MIN Diagnoses Esophagitis determined by endoscopy K20.90 Abdominal pain R10.30 Abdominal location: lower abdomen, unspecified Uncontrolled hypertension I10 Type 2 diabetes mellitus E11.69; Z79.4 Diabetes mellitus complication status: with other specified complication Diabetes mellitus skilled nursing insulin use: with skilled nursing use Acute dehydration E86.0 Leukocytosis D72.829 Time Spent (min) 35 (2) Abdominal pain Abdominal location: lower abdomen, unspecified Qualified Code(s): R10.30 - Lower abdominal pain, unspecified (4) Type 2 diabetes mellitus Diabetes mellitus complication status: with other specified complication 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
[2024-06-09] MEDS: MELATONIN 3 MG TAB PO PRN (21:28)
--- NOTE | 2024-06-10 10:29 | Hospitalist Progress Note ---
Date of Service June 10, 2024 Assessment & Plan (1) Esophagitis determined by endoscopy: Plan: Patient reports she has not been able to tolerate solid due to pain EGD done 06/04, showed esophagitis and gastritis without ulcer Currently on protonix, starting carafate, pt states typically takes oxycodone 20 mg at home Still complaining of pain during eating, willing to try jello and applesauce (2) Abdominal pain: Plan: Acute on chronic, CT without acute pathology, with vascular history consider intestinal angina vs constipation ? IV acetaminophen and Dilaudid as needed for pain control Heat application with K-pad as needed iv protonix bid, carafate for erosive esophagitis N/v resolved, advance diet (3) Uncontrolled hypertension: Plan: Resolved Restarted clonidine, hydralazine, lisinopril, nifedipine, and metoprolol as tolerated (4) Type 2 diabetes mellitus: Plan: Last A1c at 7.4% on 03/01/2024 Glucose 264 on admission Patient normally takes Lantus 10u HS, but has not been taking over the past 3-4 days due to poor oral intake We will give Lantus 5u BID Loose SSI with target BSG range 120-150mg/dL, CF 50, carb ratio 15 BSG q6h for now Adjust regimen as needed a1c 7.1 (5) Acute dehydration: Plan: Resolved (6) Leukocytosis: Plan: improving espophagitis not consistent with infection on egd, pathology pending Procalcitonin WNL Patient reports negative home test for COVID/flu the week prior to arrival (was having reported low-grade fever of 99 F) No clear source on arrival UA without infection CXR ordered, no pneumonia Plan Full code VTE PPx: SCDs; hold chemical DVT PPx in the setting of hematemesis for 24 hours (please add on chemical DVT PPx for extended stay) Hopefully d/c in the next 24 hrs, I was going to d/c today, but patient says she still has a lot of pains, she has been crying out in pain each time I want to discharge her Admission and Anticipated Discharge Date Admission Date: June 02, 2024 Subjective patient seen and examined, still complaining of severe pain when trying to eat, tolerating jello and applesauce Review of Systems Review of Systems: All systems reviewed are negative, apart from the ones contained in the history. Physical Exam Physical Exam: The patient is awake, alert and oriented 3, well developed and well nourished, normocephalic and atraumatic, lying in bed and in no acute distress. HEENT--PERRL, EOMI, mucous membranes and oropharynx mildly dry Neck--supple. No JVD. No bruits. Thyroid normal, trachea midline, no adenopathy. Heart--normal S1 and S2. No murmurs, rubs or gallops. Lungs--clear bilaterally, no respiratory distress, no accessory muscle use. Abdomen--normal bowel sounds and soft. Extremities--no cyanosis or clubbing. No edema. right bka Dermatologic--normal skin turgor, normal color, no abnormal lymph nodes, no rash. Neurologic--cranial nerves II through XII grossly intact. Rheumatologic--normal range of motion. Psychiatric--normal affect. Results & Data Results & Data Vital Signs (Past 12 Hours) Vital Signs Temp Pulse Pulse Resp BP Pulse Ox O2 Del Method 06/10/24 07:25 60 06/10/24 07:18 98.1 F 59 L 19 147/68 H 95 Room Air 06/10/24 02:47 98.1 F 59 L 17 97/58 L 93 Room Air 06/09/24 23:47 56 L 06/09/24 22:45 98.1 F 59 L 17 100/60 93 Room Air PG Care Time/CCT Total # of Minutes Spent Total Time Spent with Patient: Total time spent is greater than 50% in coordination of care (as documented) at patient's floor/unit and/or counseling patient: Coding Level of Care Code 26274 SUB INP/OBS CARE 2/35MIN Diagnoses Esophagitis determined by endoscopy K20.90 Abdominal pain R10.30 Abdominal location: lower abdomen, unspecified Uncontrolled hypertension I10 Type 2 diabetes mellitus E11.69; Z79.4 Diabetes mellitus complication status: with other specified complication 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
[2024-06-10] MEDS: diphenhydrAMINE 50 MG/ML VIAL IV STA (10:52)
[2024-06-10] MEDS: diphenhydrAMINE 2%/ZINC 0.1% CREAM 28.4GM TUBE EXT PRN (18:50)
[2024-06-11 06:34] LABS: Hematocrit (blood only) 32.8 % (37.0-47.0); Hemoglobin 10.4 g/dl (12.0-16.0); Mean Corpuscular Hemoglobin 24.2 pg (25.0-34.0); Mean Corpuscular Hgb Conc 31.7 g/dL (32.0-36.0); Mean Corpuscular Volume 76.3 fL (80.0-100.0); Mean Platelet Volume 10.9 fL (9.4-12.4); Platelet Count 266 K/uL (130-400); RDW Coefficient of Variation 15.5 % (11.5-14.5); RDW Standard Deviation 42.5 fL (36.4-46.3); White Blood Count 8.09 K/ul (4.8-10.8)
[2024-06-11 06:46] LABS: BUN Creatinine Ratio 27.3 (10-20); Calcium 8.9 mg/dl (8.6-10.3); Creatinine Clr Calc Pharmacy 95.6 ml/min; Potassium 3.9 mmol/L (3.5-5.1)
[2024-06-11 07:18] VITALS: RESP 18
--- NOTE | 2024-06-11 08:13 | Hospitalist Progress Note ---
Date of Service June 11, 2024 Assessment & Plan (1) Esophagitis determined by endoscopy: Plan: Patient reports she has not been able to tolerate solid due to pain EGD done 06/04, showed esophagitis and gastritis without ulcer Currently on protonix, starting carafate, pt states typically takes oxycodone 20 mg at home Still complaining of pain during eating, willing to try jello and applesauce (2) Abdominal pain: Plan: Acute on chronic, CT without acute pathology, with vascular history consider intestinal angina vs constipation ? IV acetaminophen and Dilaudid as needed for pain control Heat application with K-pad as needed iv protonix bid, carafate for erosive esophagitis N/v resolved, advance diet (3) Uncontrolled hypertension: Plan: Resolved Restarted clonidine, hydralazine, lisinopril, nifedipine, and metoprolol as tolerated (4) Type 2 diabetes mellitus: Plan: Last A1c at 7.4% on 03/01/2024 Glucose 264 on admission Patient normally takes Lantus 10u HS, but has not been taking over the past 3-4 days due to poor oral intake We will give Lantus 5u BID Loose SSI with target BSG range 120-150mg/dL, CF 50, carb ratio 15 BSG q6h for now Adjust regimen as needed a1c 7.1 (5) Acute dehydration: Plan: Resolved (6) Leukocytosis: Plan: improving espophagitis not consistent with infection on egd, pathology pending Procalcitonin WNL Patient reports negative home test for COVID/flu the week prior to arrival (was having reported low-grade fever of 99 F) No clear source on arrival UA without infection CXR ordered, no pneumonia Plan Full code VTE PPx: SCDs; hold chemical DVT PPx in the setting of hematemesis for 24 hours (please add on chemical DVT PPx for extended stay) Hopefully d/c in the next 24 hrs, I was going to d/c today, but patient says she still has a lot of pains, she has been crying out in pain each time I want to discharge her Admission and Anticipated Discharge Date Admission Date: June 02, 2024 Results & Data Results & Data Vital Signs (Past 12 Hours) Vital Signs Temp Pulse Pulse Resp BP Pulse Ox O2 Del Method 06/11/24 07:17 98.1 F 67 18 159/65 H 96 Room Air 10/30/24 07:11 60 06/11/24 03:59 98.1 F 60 17 145/66 H 93 Room Air 06/10/24 23:05 97.9 F 70 17 117/62 94 Room Air 06/10/24 22:16 63 PG Care Time/CCT Total # of Minutes Spent Total Time Spent with Patient: Total time spent is greater than 50% in coordination of care (as documented) at patient's floor/unit and/or counseling patient: Coding Diagnoses Esophagitis determined by endoscopy K20.90 Abdominal pain R10.30 Abdominal location: lower abdomen, unspecified Uncontrolled hypertension I10 Type 2 diabetes mellitus E11.69; Z79.4 Diabetes mellitus complication status: with other specified complication 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
[2024-06-11 15:48] VITALS: O2SAT 94
--- NOTE | 2024-06-11 16:51 | Discharge Summary ---
Discharge Summary Date of Service June 11, 2024 Principal Dx & Hospital Course #1 = Principal Diagnosis (1) Esophagitis determined by endoscopy: Patient reports she has not been able to tolerate solid due to pain EGD done 06/04, showed esophagitis and gastritis without ulcer Currently on carafate, change protonix to rabeprazole at dc pt states typically takes oxycodone 20 mg at home Still complaining of pain during eating, willing to try jello and applesauce, wants to go home (2) Abdominal pain: Acute on chronic, CT without acute pathology, with vascular history consider intestinal angina vs constipation ? unclear etiology did not improve with acid treatment, not consistent with intestinal angina planning to see pain management for leg pain will encourge to discuss all pain N/v resolved, tolerating liquid diet (3) Uncontrolled hypertension: Resolved Restarted clonidine, hydralazine, lisinopril, nifedipine, and metoprolol as tolerated (4) Type 2 diabetes mellitus: Last A1c at 7.4% on 03/01/2024 Glucose 264 on admission Patient normally takes Lantus 10u HS a1c 7.1 (5) Acute dehydration: Resolved (6) Leukocytosis: resolved espophagitis not consistent with infection on egd, pathology pending Procalcitonin WNL Patient reports negative home test for COVID/flu the week prior to arrival (was having reported low-grade fever of 99 F) No clear source on arrival UA without infection CXR ordered, no pneumonia Plan Full code Notes For Next Care Provider trying rabeprazole for acid suppression, encourage pain follow up Admission HPI Per Admitting Provider 2-week history of abdominal pain nausea and vomiting with a possible episode of hematemesis. Discharge Exam nabs, soft no rebound, tender in epigastrium, RUQ cardiac exam is regular Discharge Plan Discharge Items Patient Disposition: Home - Self-Care Reason For Visit: INTRACTABLE ABDOMINAL PAIN, N/V, CONSTIPATION Discharge Diagnosis: irritated swallowing tube and stomach chronic pain diabetes Activity: Resume your previous activity Non-emergency contact: Primary Care Provider Call non-emergency contact if: your symptoms worsen Follow-up/Referrals: Vince Vernon DO [Primary Care Provider] - 06/16/24 9:20 am (Hospital follow up scheduled June 16 at 9:20 with PCP) Diet: Carb Consistent or DM2 Addtl Attending Provider Instructions: please take your stomach medications as prescribed protonix twice a day and carafate 4 times a day for the next 4 days avoid irritating foods, acid containing foods such as orange juice and tomato based products do not take ibuprofen, naproxen or aleve see your primary care in follow up Pending Studies at Discharge: No Stand-Alone Forms: [facility], Smoking Cessation Medications and DC Order Prescriptions: New sucralfate [Carafate] 100 mg/mL suspension 1 g PO ACHS Qty: 200 0RF rabeprazole 20 mg tablet,delayed release (DR/EC) 20 mg PO DAILY 56 Days Qty: 56 0RF Continued prochlorperazine maleate 5 mg tablet 5 mg PO TID PRN (Reason: Nausea) insulin glargine [Lantus Solostar U-100 Insulin] 100 unit/mL (3 mL) insulin pen 10 unit SUBCUT HS metoprolol succinate [Toprol XL] 50 mg tablet extended release 24 hr 50 mg PO QAM albuterol sulfate 90 mcg/actuation HFA aerosol inhaler 2 puff INHALATION QID PRN (Reason: Shortness Of Breath Or Wheezing) docusate sodium 100 mg Capsule 100 mg PO BID alprazolam 1 mg tablet 1 mg PO TID PRN (Reason: Anxiety) clopidogrel [Plavix] 75 mg tablet 75 mg PO DAILY Qty: 30 0RF hydralazine 25 mg tablet 25 mg PO TID aspirin 81 mg Tablet,Delayed Release (Dr/Ec) 81 mg PO DAILY nifedipine 60 mg tablet extended release 24hr 120 mg PO DAILY lidocaine 5 % Adhesive Patch,Medicated 1 patch transdermal QAM Qty: 14 0RF clonidine HCl 0.1 mg Tablet 0.1 mg PO Q8H Qty: 90 0RF pregabalin [Lyrica] 100 mg Capsule 100 mg PO TID Qty: 90 0RF polyethylene glycol 3350 [Miralax] 17 gram Powder In Packet 17 g PO BID Qty: 0 0RF Rx Instructions: 1 capful twice a day for constipation, buy over the counter sennosides [Senokot] 8.6 mg Tablet 17.2 mg PO BID PRN (Reason: constipation) Qty: 60 0RF cyanocobalamin (vitamin B-12) 500 mcg Tablet 1,000 mcg PO QAM Qty: 30 0RF naloxone 4 mg/actuation spray,non-aerosol 4 mg intranasal ONCE PRN (Reason: opioid overdose) Qty: 2 0RF Rx Instructions: call 911 if used, may repeat dose if ineffective quetiapine 50 mg tablet 50 mg PO HS ropinirole 4 mg tablet 8 mg PO HS Fiasp FlexTouch U-100 Insulin 100 unit/mL (3 mL) insulin pen 5 unit SUBCUT TIDM duloxetine 60 mg capsule,delayed release(DR/EC) 60 mg PO DAILY lisinopril 20 mg Tablet 20 mg PO DAILY oxycodone 20 mg tablet 20 mg PO Q6H PRN (Reason: pain) Qty: 12 0RF Rx Instructions: temporary dose increase. resume usual 10 mg dose after three days Discontinued pantoprazole 40 mg tablet,delayed release (DR/EC) 40 mg PO BID ascorbic acid (vitamin C) [Vitamin C] 500 mg Tablet 500 mg PO QAM Qty: 20 0RF Discharge Orders: Discharge Order (Routine); Ordered 06/11/24 Ordered By: Ashok Nava/Other Patient Handouts: Managing Type 2 Diabetes Admission Data Admit Date/Time: 06/02/24 08:41 Attending Provider: Ashok Clemons Admit Provider: Mona Champagne Primary Care Provider: Vince Vernon Other Providers: Jayson Staton; Festus Donnelly I Other Interventions: Discharge Summary Assessment (RN) Last Done: 06/11/24 10:06 Hospital Stay Data Consultations 06/02/24 06:04 ED Decision to Admit Stat 06/03/24 15:08 Consult Gastroenterology Routine 06/04/24 14:44 Consult Behavioral Health Liaison Routine Procedures Performed Operation Date: 06/04/24 16:30 Actual Procedures p EGD Biopsy Cytology(Not Applicable) - Festus Donnelly MD Diagnostic Imagining Performed 06/02/24 04:03 CT Abd and Pelvis [CT abd pelvis IV con only] Stat Pending Results Patient Have Any Pending Studies at Discharge: No Discharge Instructions Given to Patient (Per Discharging Provider) please take your stomach medications as prescribed protonix twice a day and carafate 4 times a day for the next 4 days avoid irritating foods, acid containing foods such as orange juice and tomato based products do not take ibuprofen, naproxen or aleve see your primary care in follow up Total Time Total Time Spent Total Time Spent (In Minutes): It required greater than 30 minutes to prepare this patient for discharge. Coding Level of Care Code 48004 INP/OBS DISCH >30 MIN Diagnoses Esophagitis determined by endoscopy K20.90 Abdominal pain R10.30 Abdominal location: lower abdomen, unspecified Uncontrolled hypertension I10 Type 2 diabetes mellitus E11.69; Z79.4 Diabetes mellitus complication status: with other specified complication Diabetes mellitus senior living insulin use: with long distance operator use Acute dehydration E86.0 Leukocytosis D72.829
[2024-06-11 19:21] VITALS: BP 152/66; PULSE 64; TEMP 98.6
--- NOTE | 2024-06-12 15:57 | Coding Query ---
CODING QUERY To promote full compliance with coding requirements relating to patient care, provider participation is requested in all cases of sample display preparer uncertainty. Please assist us with the question(s) below: Coding Question(s): Pt Admitted with hematemesis,nausea,vomiting abdominal pain. EGD revealed severe type C esophagitis. Please document, if known or suspected, the etiology of the hematemesis. Thanks for your help! Dakotah Pyle [facility] Physician's Response(s): esophagitis Principal Diagnosis: "that condition established after study, to be chiefly responsible for occasioning the admission of the patient to the hospital for care." Co-Existing Principal Diagnosis: "when two or more diagnoses equally meet the criteria for principal diagnosis as determined by the circumstances of admission, diagnostic work up, and/or therapy provided, and the Alphabetic Index, Tabular List, or another coding guideline does not provide sequencing direction, any one of the diagnoses may be sequenced first." "When the physician has documented what appears to be a current diagnosis in the body of the record, but has not included the diagnosis in the final diagnostic statement, the physician should be asked whether the diagnosis should be added." (Source Coding Clinic 2 QTR90. p3-4) [facility]
== END 2024-06-11 20:33 | disposition home or self-care (01) | DRG 369 ==
LOC: ED 01:28 → SUATTDRO 08:41 → 4W 08:41

== ENCOUNTER 2024-06-19 19:58 | Inpatient (IN) ==
--- NOTE | 2024-06-19 21:27 | Emergency Department Note ---
Impression & Plan Pneumonia, Nausea & vomiting ED Provider Note CHIEF COMPLAINT: Nausea, vomiting, abdominal pain HISTORY OF PRESENTING ILLNESS: This 59-year-old female patient presents to the emergency department via EMS with her for evaluation of nausea, vomiting, and abdominal pain rating to her back. Also having pain in her lungs and ribs. She states that she is coughing up blood now and has a history of bleeding from her esophagus. Symptoms started 2 days ago. The patient saw her PCP earlier today and was advised to go to the ER to follow-up for possible pneumonia per EMS. She states that she is not able to keep anything down so she is not able to take her medications for her reflux or her blood pressure. The patient has bilateral expiratory wheezing and complaint of difficulty breathing. She denies any chest pain at this time, but states that she has rib pain from coughing. She states that she is coughing up any yellow-green mucus. The patient drops her oxygen to 80% while resting and sleeping on room air. Nursing staff placed her on 2 L of oxygen by nasal cannula. The patient was just discharged from hospital on 06/11/2024 for esophagitis, abdominal pain, and uncontrolled hypertension. The patient had an EGD done on 06/04/2024 that showed esophagitis and gastritis without ulcer. Her Protonix was changed to rabeprazole at discharge and she is also on Carafate. She continues to take oxycodone 20 mg at home for pain. Her abdominal pain is acute on chronic without acute abnormality seen on the CT scan. Her pain was thought to be secondary to possible intestinal angina versus constipation. The patient was referred to pain management for further management. The patient was restarted on her clonidine, hydralazine, lisinopril, nifedipine, and metoprolol for her hypertension with improvement while inpatient. REVIEW OF SYSTEMS: See HPI for pertinent positives and pertinent negatives. ALLERGIES: See below MEDICATIONS: See below PAST MEDICAL HISTORY: See below PHYSICAL EXAM: VITALS: Vitals are noted on the nurse's note and reviewed by myself. GENERAL: The patient appears in pain, but non toxic, in no acute distress, non- diaphoretic. SKIN: Capillary refill <2 sec. EYES: PERRLA. EOMI. Conjunctivae without injection, sclerae without icterus. NOSE: Patent without discharge. MOUTH: Mucous membranes moist. Uvula midline. Airway patent. NECK: Supple without nuchal rigidity. HEART: Regular rate and rhythm without murmurs gallops or rubs. LUNGS: Clear to auscultation bilaterally with a few scattered wheezes without rales or rhonchi. No retractions or accessory muscle use. ABDOMEN: Positive bowel sounds x 4. Normal tympanic percussion. Soft, mild diffuse tenderness to palpation with no maximal area of tenderness. No masses or hepatosplenomegaly. Tran sign negative. No CVA tenderness. No guarding, rigidity, or rebound tenderness. No focal RLQ or LLQ tenderness. MUSCULOSKELETAL: No gross musculoskeletal defects. NEURO: Patient was alert and oriented. No focal neurological deficits. DIFFERENTIAL DIAGNOSIS: Differential diagnosis includes hepatitis, pancreatitis, cholecystitis, cholelithiasis, appendicitis, kidney stone, pyelonephritis, UTI, gastritis, gastroenteritis, mesenteric adenitis, obstruction, constipation, hernia, abdominal abscess, perforation, diverticulitis, IBD, ischemic colitis, abdominal aortic aneurysm, , ectopic , ovarian cyst, ovarian torsion, acute salpingitis, URI, bronchitis, pneumonia, pneumothorax, hemothorax, PE, CO, pericarditis, myocarditis, airway obstruction, aspiration, pulmonary edema, asthma, COPD, CHF, pleurisy, metabolic acidosis, anemia, neoplasm, or others. ED COURSE AND MEDICAL DECISION MAKING: HISTORY FROM INDEPENDENT HISTORIAN: Additional history obtained from the patient's MEDICATIONS GIVEN: DuoNeb treatment. Compazine 10 mg IV, Tylenol 1000 mg IV, Protonix 40 mg IV, and Pepcid 20 mg IV. A total of 2 L normal saline solution bolus. There is currently a severe shortage of IV fluids. The patient's condition was assessed and additional IV fluids in the ER were held at this time based on her workup. Doxycycline 100 mg IV. MONITOR: Continuous pvc monitor: Order was placed for continuous pvc monitor. Patient was placed on the pvc monitor and continuous pulse ox. Patient was noted to be in sinus tachycardia at an initial rate of 105 bpm per my interpretation. EKG: EKG was interpreted by myself as sinus tachycardia at 106 bpm with no acute ST or T wave changes and no significant change from her previous EKG. INTERPRETATION OF LABS: I interpreted the labs with full lab results as below in the lab section of this note. Pertinent lab results discussed in the MDM section below. INTERPRETATION OF IMAGING: Imaging studies were interpreted by myself and read by radiology as per the imaging section of this note. Chest x-ray shows subsegmental opacity noted involving the left lower lung zone adjacent to the diaphragm. This may represent atelectasis or pneumonia. EXTERNAL RECORDS REVIEWED: I reviewed the patient's most recent admission as summarized above. CONSULTATIONS: On-call hospitalist [facility] SUMMARY: The patient was seen during a time of extreme volume and extreme acuity. Nursing triage protocols were initiated with IV lock, labs, and/or imaging studies conducted by protocol in the triage area. The patient was examined by myself once they were taken back to an exam room. The patient presents to the emergency department for evaluation of continued cough, shortness of breath, nausea, vomiting, and abdominal pain. The patient has not been able to keep her blood pressure or reflux medications down at home. The patient was given a DuoNeb treatment with improvement of her wheezing. The patient was given Compazine 10 mg IV, Tylenol 1000 mg IV, Protonix 40 mg IV, and Pepcid 20 mg IV for her symptoms. Due to the severe shortage of IV fluids, the patient was only given 500 mL normal saline solution bolus initially in the ER, but then was given a total of 2 L NSS after further workup. I had a meaningful discussion about this patient with Dr. Andersen who agrees with my assessment and the treatment plan. The patient has a history of drug-seeking behavior. After discussion with Dr. Andersen, opioid/narcotic medications were held pending the results of her workup. I avoided IV Toradol as well given her recent esophagitis/gastritis on EGD. White blood cell count elevated 12.60. Hemoglobin normal at 13.6. Platelet count elevated 458. Coags were normal. Sodium 135, chloride 97, anion gap 14, creatinine 0.42, and glucose 212. CMP otherwise without significant abnormalities. Lactate normal at 1.3. Procalcitonin normal at <0.2. Magnesium normal. High-sensitivity troponin elevated at 24.7 with repeat high-sensitivity troponin improved to 22.6. Respiratory BioFire was negative. Urinalysis was still pending at the time of admission. Chest x-ray shows subsegmental opacity noted involving the left lower lung zone adjacent to the diaphragm. This may represent atelectasis or pneumonia. The patient was given IV doxycycline. Abdominal CT scan imaging was held at this time due to the patient's recent CT scan of the abdomen pelvis without cause found of her continued symptoms. Due to the patient's leukocytosis, pneumonia, vomiting, and degree of discomfort, it was felt the patient would benefit from admission for further management of her symptoms. I spoke with the on-call hospitalist who agreed to admit the patient for further evaluation and treatment. Please refer to their dictation for further details. The patient's care was transferred in stable condition. DIAGNOSIS: Pneumonia Nausea and vomiting Past Med/Surg History Problem List (Updated 06/20/24 @ 03:29 by Jo Castro PA-C) Nausea & vomiting (Acute) Pneumonia (Acute) Abdominal pain Hematemesis Nausea and vomiting Dysphagia Lumbar radiculopathy, right (Acute) Intractable vomiting (Acute) Hypokalemia (Acute) Acute dehydration (Acute) Diffuse abdominal pain (Acute) Hypomagnesemia Hypokalemia Type 2 diabetes mellitus Nausea and vomiting Swelling of left foot Groin pain, chronic, left Ilioinguinal neuralgia of left side Neural foraminal stenosis of lumbar spine Left L4-5 Opioid dependence (Chronic) Constipation (Acute) Left flank pain Lumbar disc herniation with radiculopathy Back pain (Acute) nursing home (current) use of antithrombotics/antiplatelets (Acute) Acute dehydration (Acute) Abdominal pain (Acute) Acute dehydration (Acute) Elevated troponin (Acute) Diffuse abdominal pain (Acute) Uncontrolled hypertension Acute herpes zoster neuropathy (Acute) Infection due to Rivas catheter MRSA bacteremia Ulcer of second toe of left foot (Acute) Leukocytosis (Acute) Elevated lactic acid level (Acute) Abscess of right axilla Axillary hidradenitis suppurativa (Acute) Vomiting (Acute) Headache (Acute) Constipation (Acute) Diarrhea (Acute) Internal jugular (IJ) vein thromboembolism, acute Anemia Vitamin D deficiency Shoulder pain B12 deficiency Acute leg pain (Acute) Costochondritis Globus pharyngeus Somatic dysfunction of thoracic region Chronic pain syndrome Acute adjustment disorder with mixed anxiety and depressed mood Diarrhea Scapular dyskinesis Injury of left rotator cuff Numbness of upper extremity Status post spinal surgery Gastroparesis (Acute) Vitamin D deficiency Esophagitis History of tobacco use Toe ulcer, right MRSA (methicillin resistant staph aureus) culture positive Rash and nonspecific skin eruption Stye Acute hyperglycemia (Acute) Tenosynovitis of ankle Surgical wound, non healing (Acute) Ankle ulcer due to DM Encounter for pre-operative examination Anxiety Diarrhea Emphysema lung Cellulitis of left foot (Acute) Diabetic foot ulcer (Acute) Acute leg pain (Acute) Iron deficiency anemia History of amputation of great toe Diabetic peripheral neuropathy Depression Nonobstructive atherosclerosis of coronary artery Chronic back pain Medical History Hypertension Groin pain Foot pain Infection of left great toe due to methicillin resistant Staphylococcus aureus (MRSA) Diastolic CHF COVID-19 Osteomyelitis of great toe of left foot Opiate dependence Opiate abuse, continuous Acidosis, lactic Acute dehydration Gastroenteritis Sepsis Shortness of breath Opioid dependence Hypomagnesemia Insomnia 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 No issues per anesthesia postop progress note. Anemia Hyponatremia Cellulitis Peripheral neuropathy Benzodiazepine withdrawal Right second toe ulcer Diabetes mellitus type 2, uncontrolled Hyperlipidemia Seizures Gastritis Numbness of lower extremity Hypertriglyceridemia CAD (coronary artery disease) History of tobacco use Benzodiazepine dependence Diabetic neuropathy Abdominal pain Gastroparesis Esophagitis determined by endoscopy GIB (gastrointestinal bleeding) Insulin dependent diabetes mellitus DM2 (diabetes mellitus, type 2) IDDM, A1c 07/2021-11% Surgical History History of right below knee amputation (12/22/21) Right Below Knee Amputation(Right) - Davon Good MD, FACS History of lumbar surgery History of esophagogastroduodenoscopy (EGD) Family History Mother , age 63 Myocardial infarction Father , age 68 or 69 Myocardial infarction Brother S/P CABG (coronary artery bypass graft) Sister Myocardial infarction x 3; she is 57yo Social History Smoking Status: Former smoker Tobacco Type: Cigarettes packs per day: 0.5; Second Hand Exposure: No; Do You Dip or Chew Tobacco: No; Hx Alcohol Use: No Hx Substance Use: Yes (marijuana) Prescribed Medications: Marijuana Last Used Substance: Unknown Last Used Substance Other:: Medical marijuana Substance Use Type Other:: Medical marijuana Preferred Language: Thai Communication Ability: Effective Visual Impairment: No Limitations Hearing Ability: Normal Film Splicer Required: No Beliefs That Will Affect Care: None marital status: Current Living Situation: Spouse and Family Current Living Situation Comment: lives at home with current occupational status: unemployed 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 other: raising a grandchild as well; lives in [place] Feels Safe at Home: Yes Diet: diabetic and low salt during the past year weight has: remained stable Assistive Devices: Walker and Wheelchair Allergies Allergies Allergy/AdvReac Type Severity Reaction Status Date / Time morphine Allergy Severe blisters Verified 02/10/24 22:40 in mouth Sulfa (Sulfonamide Allergy Severe rash/swelli Verified 02/10/24 22:40 Antibiotics) ng amoxicillin [From Augmentin] Allergy Intermediate itching/power Verified 02/10/24 22:40 h ceftriaxone [From Rocephin] Allergy Intermediate Hives Verified 02/10/24 22:40 clavulanic acid Allergy Intermediate itching/power Verified 02/10/24 22:40 [From Augmentin] h erythromycin base Allergy Intermediate Hives Verified 02/10/24 22:40 vancomycin Allergy Intermediate YULIYA Verified 02/10/24 22:40 SYNDROME---CAN TAKE IF VERY SLOW DRIP. adhesive AdvReac Intermediate DERMABOND Verified 02/10/24 22:40 excoriates skin gabapentin AdvReac Intermediate Nausea Verified 02/10/24 22:40 iron [From Venofer] AdvReac Intermediate Hypertensio Verified 02/10/24 22:40 n Home Meds Home Medications Medication Instructions Recorded Confirmed insulin glargine 100 unit/mL (3 10 unit subcut HS 10/17/22 06/02/24 mL) subcutaneous pen (Lantus Solostar U-100 Insulin) albuterol sulfate 90 mcg/actuation 2 puff inhalation QID PRN 05/08/23 06/02/24 aerosol inhaler Shortness Of Breath Or Wheezing alprazolam 1 mg tablet 1 mg PO TID PRN Anxiety 05/08/23 06/02/24 docusate sodium 100 mg capsule 100 mg PO BID 05/08/23 06/02/24 metoprolol succinate 50 mg 50 mg PO QAM 05/08/23 06/02/24 tablet,extended release 24 hr (Toprol XL) prochlorperazine maleate 5 mg 5 mg PO TID PRN Nausea 06/13/23 06/02/24 tablet aspirin 81 mg tablet,delayed 81 mg PO DAILY 09/19/23 06/02/24 release hydralazine 25 mg tablet 25 mg PO TID 09/19/23 06/02/24 nifedipine 60 mg tablet,extended 120 mg PO DAILY 09/19/23 06/02/24 release 24 hr duloxetine 60 mg capsule,delayed 60 mg PO DAILY 06/02/24 06/02/24 release insulin aspart 5 unit subcut TIDM 06/02/24 06/02/24 (niacinamide)(U-100) 100 unit/mL(3 mL) subcutaneous pen (Fiasp FlexTouch U-100 Insulin) lisinopril 20 mg tablet 20 mg PO DAILY 06/02/24 06/02/24 quetiapine 50 mg tablet 50 mg PO HS 06/02/24 06/02/24 ropinirole 4 mg tablet 8 mg PO HS 06/02/24 06/02/24 Previous Rx's Medication Instructions Recorded clopidogrel 75 mg tablet (Plavix) 75 mg PO DAILY #30 tabs 05/10/23 lidocaine 5 % topical patch 1 patch transdermal QAM #14 ea 12/13/23 clonidine HCl 0.1 mg tablet 0.1 mg PO Q8H #90 tabs 04/03/24 cyanocobalamin (vitamin B-12) 500 1,000 mcg (2 x 500 mcg) PO QAM #30 04/03/24 mcg tablet tabs naloxone 4 mg/actuation nasal spray 4 mg intranasal ONCE PRN opioid 04/03/24 overdose #2 ea polyethylene glycol 3350 17 gram 17 g PO BID #0 ea 04/03/24 oral powder packet (Miralax) pregabalin 100 mg capsule (Lyrica) 100 mg PO TID #90 caps 04/03/24 sennosides 8.6 mg tablet (Senokot) 17.2 mg (2 x 8.6 mg) PO BID PRN 04/03/24 constipation #60 tabs sucralfate 100 mg/mL oral 1 g (10 mL) PO ACHS #200 mL 06/05/24 suspension (Carafate) oxycodone 20 mg tablet 20 mg PO Q6H PRN pain #12 tabs 06/11/24 rabeprazole 20 mg tablet,delayed 20 mg PO DAILY 8 weeks #56 tabs 06/11/24 release Results & Data (ED) Vital Signs Vital Signs - 24 hr 06/19/24 19:44 06/19/24 19:44 06/19/24 20:05 Temperature 36.6 C 36.6 C Temperature Source Oral Oral Pulse Rate 116 H 102 H Pulse Rate [Left] 116 H Pulse Rhythm Regular Pulse Rhythm [Left] Regular Pulse Strength Normal Pulse Strength [Left] Normal Respiratory Rate 24 24 Respiratory Effort / Characteristics Non-Labored Spontaneous Non-Labored Spontaneous Respiratory Depth Normal Normal Respiratory Pattern Regular Regular Blood Pressure 216/137 H Blood Pressure [Right Arm] 216/137 H Blood Pressure Mean 163 Blood Pressure Mean [Right Arm] 163 Blood Pressure Position Lying Blood Pressure Position [Right Arm] Lying Pulse Oximetry 99 99 Oxygen Delivery Method Room Air Room Air Sepsis Recent Fever Within 48 Hours No Sepsis New/Unexplained Change in Mental Status N/A Sepsis Action Taken by Nursing Physician Notified 06/19/24 20:42 06/19/24 21:44 06/19/24 22:40 Temperature Temperature Source Pulse Rate 116 H Pulse Rate [Left] 105 H 93 H Pulse Rhythm Regular Pulse Rhythm [Left] Regular Pulse Strength Pulse Strength [Left] Normal Respiratory Rate 24 16 22 Respiratory Effort / Characteristics Non-Labored Spontaneous Non-Labored Respiratory Depth Normal Normal Respiratory Pattern Regular Regular Blood Pressure Blood Pressure [Right Arm] 237/108 H 184/93 H Blood Pressure Mean Blood Pressure Mean [Right Arm] 151 123 Blood Pressure Position Blood Pressure Position [Right Arm] Lying Lying Pulse Oximetry 99 97 95 Oxygen Delivery Method Room Air Room Air Room Air Sepsis Recent Fever Within 48 Hours Sepsis New/Unexplained Change in Mental Status Sepsis Action Taken by Nursing 06/19/24 23:00 Temperature Temperature Source Pulse Rate Pulse Rate [Left] 96 H Pulse Rhythm Pulse Rhythm [Left] Regular Pulse Strength Pulse Strength [Left] Normal Respiratory Rate 20 Respiratory Effort / Characteristics Non-Labored Spontaneous Respiratory Depth Normal Respiratory Pattern Regular Blood Pressure Blood Pressure [Right Arm] 180/91 H Blood Pressure Mean Blood Pressure Mean [Right Arm] 120 Blood Pressure Position Blood Pressure Position [Right Arm] Lying Pulse Oximetry 93 Oxygen Delivery Method Room Air Sepsis Recent Fever Within 48 Hours Sepsis New/Unexplained Change in Mental Status Sepsis Action Taken by Nursing Laboratory Data 06/19/24 20:12 06/19/24 20:12 Lab Results 06/19/24 06/19/24 Range/Units 20:12 23:11 WBC 12.60 H (4.8-10.8) K/ul RBC 5.76 H (4.20-5.40) M/uL Hgb 13.6 (12.0-16.0) g/dl Hct 42.0 (37.0-47.0) % MCV 72.9 L (80.0-100.0) fL MCH 23.6 L (25.0-34.0) pg MCHC 32.4 (32.0-36.0) g/dL RDW Std Deviation 42.3 (36.4-46.3) fL RDW Coeff of [place] 16.1 H (11.5-14.5) % Plt Count 458 H (130-400) K/uL MPV 10.4 (9.4-12.4) fL Immature Gran % (Auto) 0.5 % Neut % (Auto) 86.2 % Lymph % (Auto) 9.6 % [place] % (Auto) 3.1 % Eos % (Auto) 0.1 % Baso % (Auto) 0.5 % Neut # (Auto) 10.87 H (1.40-6.50) K/uL Lymph # (Auto) 1.21 (1.20-3.40) K/uL [place] # (Auto) 0.39 (0.11-0.59) K/uL Eos # (Auto) 0.01 (0.00-0.50) K/uL Baso # (Auto) 0.06 (0.00-0.20) K/uL Immature Gran # (Auto) 0.06 (0.01-0.20) K/uL PT 10.5 (9.0-12.0) Seconds INR 1.0 (0.9-1.1) APTT 22 (21-31) Seconds PTT Ratio 0.8 Sodium 135 L (136-145) mmol/L Potassium 3.9 (3.5-5.1) mmol/L Chloride 97 L (98-107) mmol/L Carbon Dioxide 24 (21-32) mmol/L Anion Gap 14 H (3-11) BUN 9 (6-23) mg/dl Creatinine 0.42 L (0.6-1.2) mg/dl Est Cr Clr Drug Dosing 123.6 ml/min eGFR 111.91 BUN/Creatinine Ratio 21.4 H (10-20) Glucose 212 H (70-99(Fasting)) mg/dl Lactate 1.3 (0.4-2.0) mmol/L Calcium 10.3 (8.6-10.3) mg/dl Magnesium 1.9 (1.7-2.4) mg/dl Total Bilirubin 0.7 (0.2-1.0) mg/dl AST 9 L (13-39) U/L ALT 8 (7-52) U/L Alkaline Phosphatase 77 (34-104) U/L Troponin I High Sens 24.7 H 22.6 H (0-14) pg/ml Total Protein 8.5 H (6.0-8.3) gm/dl Albumin 4.7 (3.4-5.0) gm/dl Globulin 3.8 (2.5-4.0) gm/dl Albumin/Globulin Ratio 1.2 (0.9-2) Procalcitonin < 0.02 (0-0.5) ng/ml Adenovirus (PCR) Not Detected (NotDetected) B. pertussis DNA (PCR) Not Detected (NotDetected) B.parapertussis DNA PCR Not Detected (NotDetected) C. pneumoniae DNA (PCR) Not Detected (NotDetected) Coronavirus OC43 (PCR) Not Detected (NotDetected) Coronavirus HKU1 (PCR) Not Detected (NotDetected) Coronavirus 229E (PCR) Not Detected (NotDetected) SARS-CoV-2 (PCR) Not Detected (NotDetected) Coronavirus NL63 (PCR) Not Detected (NotDetected) Human Metapneumovir PCR Not Detected (NotDetected) Influenza Type A (PCR) Not Detected (NotDetected) Influenza Type B (PCR) Not Detected (NotDetected) M. pneumoniae (PCR) Not Detected (NotDetected) Parainfluenza 1 (PCR) Not Detected (NotDetected) Parainfluenza 2 (PCR) Not Detected (NotDetected) Parainfluenza 3 (PCR) Not Detected (NotDetected) Parainfluenza 4 (PCR) Not Detected (NotDetected) RSV (PCR) Not Detected (NotDetected) Entero/Rhino (PCR) Not Detected (NotDetected) Administered Medications Ondansetron HCl (Ondansetron Inj 2 Mg/Ml 2 Ml Vial) 4 mg IV Q6H PRN PRN Reason: Nausea Stop: 07/20/24 00:39 Last Admin: 06/20/24 02:00 Dose: 4 mg Documented By: BENOIT Discontinued Medications Albuterol (Albut/Ipratrop 3mg/0.5mg Neb 3 Ml Vial) 3 ml NEB NOW STA; Protocol Stop: 06/19/24 21:35 Last Admin: 06/19/24 22:42 Dose: 3 ml Documented By: BENOIT Prochlorperazine (Compazine) 2 mls @ 1 mls/min IV ONE ONE Stop: 06/19/24 21:35 Last Admin: 06/19/24 22:06 Dose: 1 mls/min Documented By: AGUSTINA Acetaminophen (Ofirmev) 1,000 mg in 100 mls @ 400 mls/hr IV NOW STA Stop: 06/19/24 21:48 Last Infusion: 06/20/24 00:41 Dose: Infused Documented By: Admin: 06/19/24 22:10 Dose: 400 mls/hr Documented By: AGUSTINA Sodium Chloride (Nss) 500 mls @ 999 mls/hr IV .Q31M ONE Stop: 06/19/24 22:04 Last Infusion: 06/20/24 00:42 Dose: Infused Documented By: Admin: 06/19/24 22:05 Dose: 999 mls/hr Documented By: AGUSTINA Pantoprazole Sodium (Protonix) 40 mg in 10 mls @ 5 mls/min IV NOW ONE Stop: 06/19/24 21:39 Last Admin: 06/19/24 22:34 Dose: 5 mls/min Documented By: BENOIT Famotidine (Pepcid 20mg Iv Push) 20 mg in 5 mls @ 2.5 mls/min IV NOW STA Stop: 06/19/24 21:39 Last Admin: 06/19/24 22:09 Dose: 2.5 mls/min Documented By: AGUSTINA Doxycycline Hyclate 100 mg/ (Dextrose) 100 mls @ 50 mls/hr IV NOW STA Stop: 06/20/24 01:52 Last Admin: 06/20/24 01:02 Dose: 50 mls/hr Documented By: BENOIT Sodium Chloride (Nss) 1,000 mls @ 999 mls/hr IV .Q1H1M ONE Stop: 06/20/24 01:15 Last Infusion: 06/20/24 02:44 Dose: Infused Documented By: Admin: 06/20/24 01:04 Dose: 999 mls/hr Documented By: BENOIT Ketorolac Tromethamine (Ketorolac Tromethamine 15 Mg/Ml Vial) 15 mg IV NOW ONE Stop: 06/20/24 00:53 Last Admin: 06/20/24 02:00 Dose: 15 mg Documented By: BENOIT Imaging Data Radiologist's Impression: Chest X-Ray 06/19/24 20:42 Exam(s): XR CXR 1 VIEW EXAM: XR Chest, 1 View CLINICAL HISTORY: Sepsis. TECHNIQUE: Frontal view of the chest. COMPARISON: No relevant prior studies available. FINDINGS: Lungs: Subsegmental opacity noted involving the left lower lung zone adjacent to the diaphragm. The lungs are otherwise well-aerated. Similar reticular-nodular presumed chronic interstitial changes at the lung bases. The pulmonary vasculature is unremarkable. Pleural space: The left costophrenic margin is not included, limiting evaluation. The right costophrenic margin is sharp. No pneumothorax. Heart: The cardiac silhouette is within normal limits. Mediastinum: The mediastinal contours are unremarkable. No tracheal deviation. Bones/joints: Unremarkable. No acute fracture. IMPRESSION: Subsegmental opacity noted involving the left lower lung zone adjacent to the diaphragm. This may represent atelectasis or pneumonia. Electronically signed by: Morro Owens MD 06/19/24 23:27 PM Discharge Plan Visit Data Chief Complaint: Vomiting Stated Complaint: N/V, Back Pain ED Provider: Valerie Andersen ED Midlevel Provider: Jo Castro Discharge Problem: Pneumonia, Nausea & vomiting Patient Disposition: Admitted As Inpatient Condition: Good Discharge Instructions Interventions: ED Discharge Assessment Last Done: 06/20/24 02:39 Discharge Problem: Pneumonia Qualifiers: Pneumonia type: due to unspecified organism Laterality: left Lung location: l ower lobe of lung Qualified Code(s): J18.9 - Pneumonia, unspecified organism Nausea & vomiting Qualifiers: Vomiting type: unspecified Qualified Code(s): R11.2 - Nausea with vomiting, unspecified
[2024-06-19 21:30] LABS: Albumin Globulin Ratio 1.2 (0.9-2); Albumin Level 4.7 gm/dl (3.4-5.0); BUN Creatinine Ratio 21.4 (10-20); Bilirubin,Total 0.7 mg/dl (0.2-1.0); Calcium 10.3 mg/dl (8.6-10.3); Creatinine Clr Calc Pharmacy 123.6 ml/min; Globulin 3.8 gm/dl (2.5-4.0); Magnesium 1.9 mg/dl (1.7-2.4); Potassium 3.9 mmol/L (3.5-5.1); Total Protein 8.5 gm/dl (6.0-8.3)
[2024-06-19 21:36] LABS: Troponin I High Sensitivity 24.7 pg/ml (0-14)
[2024-06-19 21:39] LABS: Partial Thromboplastin Ratio 0.8; Partial Thromboplastin Time 22 Seconds (21-31); Prothrombin Time 10.5 Seconds (9.0-12.0)
[2024-06-19 21:46] LABS: Basophils # (auto) 0.06 K/uL (0.00-0.20); Basophils % (auto) 0.5 %; Eosinophils # (auto) 0.01 K/uL (0.00-0.50); Eosinophils % (auto) 0.1 %; Hemoglobin 13.6 g/dl (12.0-16.0); Immature Granulocytes # (auto) 0.06 K/uL (0.01-0.20); Immature Granulocytes % (auto) 0.5 %; Lymphocytes # (auto) 1.21 K/uL (1.20-3.40); Lymphocytes % (auto) 9.6 %; Mean Corpuscular Hemoglobin 23.6 pg (25.0-34.0); Mean Corpuscular Hgb Conc 32.4 g/dL (32.0-36.0); Mean Corpuscular Volume 72.9 fL (80.0-100.0); Mean Platelet Volume 10.4 fL (9.4-12.4); Monocytes # (auto) 0.39 K/uL (0.11-0.59); Monocytes % (auto) 3.1 %; Neutrophils # (auto) 10.87 K/uL (1.40-6.50); Neutrophils % (auto) 86.2 %; Platelet Count 458 K/uL (130-400); RDW Coefficient of Variation 16.1 % (11.5-14.5); RDW Standard Deviation 42.3 fL (36.4-46.3); Red Blood Count 5.76 M/uL (4.20-5.40)
[2024-06-19] MEDS: SODIUM CHLORIDE 0.9% 500 ML IV ONE (22:05)
[2024-06-19] MEDS: PROCHLORPERAZINE 2 ML IV ONE (22:06)
[2024-06-19] MEDS: FAMOTIDINE 20MG IV PUSH 20 MG/5 ML SYR IV STA (22:09)
[2024-06-19] MEDS: ACETAMINOPHEN 1,000 MG/100 ML VIAL IV STA (22:10)
[2024-06-19] MEDS: PANTOprazole 40 MG/10 ML SYR IV ONE (22:34)
[2024-06-19] MEDS: ALBUT/IPRATROP 3MG/0.5MG NEB 3 ML VIAL NEB STA (22:42)
--- NOTE | 2024-06-19 23:28 | XRay Report ---
Exam(s): XR CXR 1 VIEW EXAM: XR Chest, 1 View CLINICAL HISTORY: Sepsis. TECHNIQUE: Frontal view of the chest. COMPARISON: No relevant prior studies available. FINDINGS: Lungs: Subsegmental opacity noted involving the left lower lung zone adjacent to the diaphragm. The lungs are otherwise well-aerated. Similar reticular-nodular presumed chronic interstitial changes at the lung bases. The pulmonary vasculature is unremarkable. Pleural space: The left costophrenic margin is not included, limiting evaluation. The right costophrenic margin is sharp. No pneumothorax. Heart: The cardiac silhouette is within normal limits. Mediastinum: The mediastinal contours are unremarkable. No tracheal deviation. Bones/joints: Unremarkable. No acute fracture. IMPRESSION: Subsegmental opacity noted involving the left lower lung zone adjacent to the diaphragm. This may represent atelectasis or pneumonia. Electronically signed by: Morro Owens MD 06/19/24 23:27 PM
--- NOTE | 2024-06-20 00:11 | History & Physical Report ---
Date of Service June 20, 2024 Assessment & Plan (1) Pneumonia: Plan: Pt is a 59 yo female with PMH of GERD, gastroparesis, HTN, PAD, DM, and chronic pain (on chronic opioids) presenting to the hospital d/t nausea/vomiting. Sepsis secondary to PNA - on admission, pt tachycardic to the 90s, leukocytosis to 12.6, normal respirations, afebrile - CXR showing LLL PNA vs. atelectasis - duoneb PRN, IS - s/p doxy in ER; will continue with doxy 100mg BID d/t suspicion for atypical PNA rather than typical bacterial pneumonia Vomiting/hematemesis - unclear etiology; pt has hx of gastroparesis with recent admission for flare vs. nausea secondary to PNA vs. gastritis (recent EGD last admission 06/04) - s/p 2L NS in ER/on admission; encourage PO intake as able - zofran IV PRN, home compazine PRN - pantoprazole IV BID, famotidine IV BID, carafate QID - will hold aspirin and VTE ppx in the setting of hematemesis/gastritis - trend Hgb DM - most recent A1c 05/2024 7.1% - will start with insulin glargine 5u BID; SSI PRN Chronic pain - currently on oxycodone 20 mg q4hr PRN at home; continue home regimen while inpatient - will give dilaudid 0.5mg IV x1; attempt to avoid additional IV opioids if possible - continue home bowel regimen Anxiety - last script for alprazolam 1mg TID PRN filled in January 2024 - will defer ordering on admission HTN - continue home regimen; clonidine, hydralazine, lisinopril, metoprolol, and nifedipine Diet: carb consistent as tolerated VTE ppx: deferred d/t reported bloody hematemesis Code: full Dispo: admit to med/surg (2) Type 2 diabetes mellitus: (3) Chronic pain syndrome: (4) Hematemesis: (5) HTN (hypertension): History of Present Illness Chief Complaint: vomiting Primary Care Provider: Vince Vernon DO Pt is a 59 yo female with PMH of GERD, gastroparesis, HTN, PAD, DM, and chronic pain (on chronic opioids) presenting to the hospital d/t nausea/vomiting. Pt notes over the last two days she has been vomiting, coughing, and with fevers/chills. She states she is in a lot of pain in her ribs due to coughing and "not being able to keep her percocet down." Upon further clarification, pt is on oxycodone at home, not percocet. Pt also notes abdominal pain, mostly in the epigastric region, and describes it as a burning. She notes she had an EGD when she was here recently. In the ER, pt was given a duoneb treatment, compazine x1, tylenol 1000mg x1, 1L NS, doxy 100mg x1, pantoprazole 40 mg IV x1, and pepcid 20 mg x1. Allergies Allergy/AdvReac Type Severity Reaction Status Date / Time morphine Allergy Severe blisters Verified 02/10/24 22:40 in mouth Sulfa (Sulfonamide Allergy Severe rash/swelli Verified 02/10/24 22:40 Antibiotics) ng amoxicillin [From Augmentin] Allergy Intermediate itching/power Verified 02/10/24 22:40 h ceftriaxone [From Rocephin] Allergy Intermediate Hives Verified 02/10/24 22:40 clavulanic acid Allergy Intermediate itching/power Verified 02/10/24 22:40 [From Augmentin] h erythromycin base Allergy Intermediate Hives Verified 02/10/24 22:40 vancomycin Allergy Intermediate YULIYA Verified 02/10/24 22:40 SYNDROME---CAN TAKE IF VERY SLOW DRIP. adhesive AdvReac Intermediate DERMABOND Verified 02/10/24 22:40 excoriates skin gabapentin AdvReac Intermediate Nausea Verified 02/10/24 22:40 iron [From Venofer] AdvReac Intermediate Hypertensio Verified 02/10/24 22:40 n Home Medications Medication Instructions Recorded Confirmed Type insulin glargine 100 unit/mL (3 10 unit subcut HS 10/17/22 06/02/24 History mL) subcutaneous pen (Lantus Solostar U-100 Insulin) albuterol sulfate 90 mcg/actuation 2 puff inhalation QID PRN 05/08/23 06/02/24 History aerosol inhaler Shortness Of Breath Or Wheezing alprazolam 1 mg tablet 1 mg PO TID PRN Anxiety 05/08/23 06/02/24 History docusate sodium 100 mg capsule 100 mg PO BID 05/08/23 06/02/24 History metoprolol succinate 50 mg 50 mg PO QAM 05/08/23 06/02/24 History tablet,extended release 24 hr (Toprol XL) clopidogrel 75 mg tablet (Plavix) 75 mg PO DAILY #30 tabs 05/10/23 06/02/24 Rx prochlorperazine maleate 5 mg 5 mg PO TID PRN Nausea 06/13/23 06/02/24 History tablet aspirin 81 mg tablet,delayed 81 mg PO DAILY 09/19/23 06/02/24 History release hydralazine 25 mg tablet 25 mg PO TID 09/19/23 06/02/24 History nifedipine 60 mg tablet,extended 120 mg PO DAILY 09/19/23 06/02/24 History release 24 hr lidocaine 5 % topical patch 1 patch transdermal QAM #14 ea 12/13/23 06/02/24 Rx clonidine HCl 0.1 mg tablet 0.1 mg PO Q8H #90 tabs 04/03/24 06/02/24 Rx cyanocobalamin (vitamin B-12) 500 1,000 mcg (2 x 500 mcg) PO QAM #30 04/03/24 06/02/24 Rx mcg tablet tabs naloxone 4 mg/actuation nasal spray 4 mg intranasal ONCE PRN opioid 04/03/24 06/02/24 Rx overdose #2 ea polyethylene glycol 3350 17 gram 17 g PO BID #0 ea 04/03/24 06/02/24 Rx oral powder packet (Miralax) pregabalin 100 mg capsule (Lyrica) 100 mg PO TID #90 caps 04/03/24 06/02/24 Rx sennosides 8.6 mg tablet (Senokot) 17.2 mg (2 x 8.6 mg) PO BID PRN 04/03/24 06/02/24 Rx constipation #60 tabs duloxetine 60 mg capsule,delayed 60 mg PO DAILY 06/02/24 06/02/24 History release insulin aspart 5 unit subcut TIDM 06/02/24 06/02/24 History (niacinamide)(U-100) 100 unit/mL(3 mL) subcutaneous pen (Fiasp FlexTouch U-100 Insulin) lisinopril 20 mg tablet 20 mg PO DAILY 06/02/24 06/02/24 History quetiapine 50 mg tablet 50 mg PO HS 06/02/24 06/02/24 History ropinirole 4 mg tablet 8 mg PO HS 06/02/24 06/02/24 History sucralfate 100 mg/mL oral 1 g (10 mL) PO ACHS #200 mL 06/05/24 Rx suspension (Carafate) oxycodone 20 mg tablet 20 mg PO Q6H PRN pain #12 tabs 06/11/24 Rx rabeprazole 20 mg tablet,delayed 20 mg PO DAILY 8 weeks #56 tabs 06/11/24 Rx release Past Med/Surg History Problem List (Updated 06/20/24 @ 03:29 by Jo Castro PA-C) Nausea & vomiting (Acute) Pneumonia (Acute) Abdominal pain Hematemesis Nausea and vomiting Dysphagia Lumbar radiculopathy, right (Acute) Intractable vomiting (Acute) Hypokalemia (Acute) Acute dehydration (Acute) Diffuse abdominal pain (Acute) Hypomagnesemia Hypokalemia Type 2 diabetes mellitus Nausea and vomiting Swelling of left foot Groin pain, chronic, left Ilioinguinal neuralgia of left side Neural foraminal stenosis of lumbar spine Left L4-5 Opioid dependence (Chronic) Constipation (Acute) Left flank pain Lumbar disc herniation with radiculopathy Back pain (Acute) care home (current) use of antithrombotics/antiplatelets (Acute) Acute dehydration (Acute) Abdominal pain (Acute) Acute dehydration (Acute) Elevated troponin (Acute) Diffuse abdominal pain (Acute) Uncontrolled hypertension Acute herpes zoster neuropathy (Acute) Infection due to Rivas catheter MRSA bacteremia Ulcer of second toe of left foot (Acute) Leukocytosis (Acute) Elevated lactic acid level (Acute) Abscess of right axilla Axillary hidradenitis suppurativa (Acute) Vomiting (Acute) Headache (Acute) Constipation (Acute) Diarrhea (Acute) Internal jugular (IJ) vein thromboembolism, acute Anemia Vitamin D deficiency Shoulder pain B12 deficiency Acute leg pain (Acute) Costochondritis Globus pharyngeus Somatic dysfunction of thoracic region Chronic pain syndrome Acute adjustment disorder with mixed anxiety and depressed mood Diarrhea Scapular dyskinesis Injury of left rotator cuff Numbness of upper extremity Status post spinal surgery Gastroparesis (Acute) Vitamin D deficiency Esophagitis History of tobacco use Toe ulcer, right MRSA (methicillin resistant staph aureus) culture positive Rash and nonspecific skin eruption Stye Acute hyperglycemia (Acute) Tenosynovitis of ankle Surgical wound, non healing (Acute) Ankle ulcer due to DM Encounter for pre-operative examination Anxiety Diarrhea Emphysema lung Cellulitis of left foot (Acute) Diabetic foot ulcer (Acute) Acute leg pain (Acute) Iron deficiency anemia History of amputation of great toe Diabetic peripheral neuropathy Depression Nonobstructive atherosclerosis of coronary artery Chronic back pain Medical History Hypertension Groin pain Foot pain Infection of left great toe due to methicillin resistant Staphylococcus aureus (MRSA) Diastolic CHF COVID-19 Osteomyelitis of great toe of left foot Opiate dependence Opiate abuse, continuous Acidosis, lactic Acute dehydration Gastroenteritis Sepsis Shortness of breath Opioid dependence Hypomagnesemia Insomnia 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 No issues per anesthesia postop progress note. Anemia Hyponatremia Cellulitis Peripheral neuropathy Benzodiazepine withdrawal Right second toe ulcer Diabetes mellitus type 2, uncontrolled Hyperlipidemia Seizures Gastritis Numbness of lower extremity Hypertriglyceridemia CAD (coronary artery disease) History of tobacco use Benzodiazepine dependence Diabetic neuropathy Abdominal pain Gastroparesis Esophagitis determined by endoscopy GIB (gastrointestinal bleeding) Insulin dependent diabetes mellitus DM2 (diabetes mellitus, type 2) IDDM, A1c 07/2021-11% Surgical History History of right below knee amputation (12/22/21) Right Below Knee Amputation(Right) - Davon Good MD, FACS History of lumbar surgery History of esophagogastroduodenoscopy (EGD) Family History Mother , age 63 Myocardial infarction Father , age 68 or 69 Myocardial infarction Brother S/P CABG (coronary artery bypass graft) Sister Myocardial infarction x 3; she is 57yo Social History Smoking Status: Former smoker Tobacco Type: Cigarettes packs per day: 0.5; Second Hand Exposure: No; Do You Dip or Chew Tobacco: No; Tobacco Cessation Education Requested by Patient: No Hx Alcohol Use: No Hx Substance Use: Yes Prescribed Medications: Marijuana Last Used Substance: Unknown Last Used Substance Other:: Medical marijuana Substance Use Type Other:: Medical marijuana Preferred Language: Wolof Communication Ability: Effective Visual Impairment: No Limitations Hearing Ability: Normal Spinning Lathe Operator Required: No Beliefs That Will Affect Care: None marital status: Current Living Situation: Spouse Current Living Situation Comment: lives at home with current occupational status: unemployed 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 Other Information That Helps Us Care for You: No other: raising a grandchild as well; lives in [place] Feels Safe at Home: Yes Safety Concerns: Feels Safe At This Time and Afraid for Self Diet: diabetic and low salt during the past year weight has: remained stable Assistive Devices: Walker and Wheelchair Review of Systems Review of Systems: As per HPI Physical Exam Constitutional: NAD, vitals WNL. Eyes: Conjunctivae normal. Respiratory: CTA bilaterally. Non labored breathing. No rhonchi, wheezing, or crackles. Cardiovascular: RRR. No murmurs noted. No LE edema. Gastrointestinal (Abdomen): +BS. Pt deferring abdominal exam d/t johnathan n. Skin: No rashes or skin lesions noted. Neurologic: Sensation grossly intact. No FND appreciated. Psychiatric: Speech of normal pace and content. Mood and affect congruent. Pt at times tearful throughout encounter. Results & Data Results & Data Vital Signs (Past 12 Hours) Vital Signs Temp Pulse Pulse Resp BP BP Pulse Ox 06/19/24 23:00 96 H 20 180/91 H 93 06/19/24 22:40 93 H 22 184/93 H 95 06/19/24 21:44 105 H 16 237/108 H 97 06/19/24 20:42 116 H 24 99 06/19/24 20:05 102 H 06/19/24 19:44 36.6 C 116 H 24 216/137 H 99 06/19/24 19:44 36.6 C 116 H 24 216/137 H 99 O2 Del Method 06/19/24 23:00 Room Air 06/19/24 22:40 Room Air 06/19/24 21:44 Room Air 06/19/24 20:42 Room Air 06/19/24 20:05 11/07/24 19:44 Room Air 06/19/24 19:44 Room Air Supervising Physician Co-Signing Physician Notes Attending addendum: I have physically seen this patient, have supervised the medical residents activities, and agree with the H&P unless as otherwise noted. Assessment and Plan: Early left lower lobe pneumonia- As read by radiology Continue doxycycline 100 mg IV twice daily that was begun in the ED Zofran 4 mg IV every 6 hours as needed Compazine 10 g p.o. Pantoprazole 40 mg IV twice daily Famotidine 20 mg IV twice daily Carafate 4 times daily Insulin glargine and sliding scale insulin as noted Continue home regimen of oxycodone while inpatient Would not given any further IV pain medications Regarding hypertension, continue home regimen of clonidine, hydralazine, lisinopril, metoprolol and nifedipine multiple Resident Activity Tracking Resident Involvement: Resident Care Provided Care Provided: Adult Hospital Medicine (2) Type 2 diabetes mellitus Diabetes mellitus complication status: with other specified complication Diabetes mellitus fci insulin use: with fci use Qualified Code(s): E11.69 - Type 2 diabetes mellitus with other specified complication; 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
[2024-06-20 00:13] LABS: Adenovirus PCR Not Detected (NotDetected); Bordetella parapertussis PCR Not Detected (NotDetected); Bordetella pertussis PCR Not Detected (NotDetected); Chlamydia pneumoniae PCR Not Detected (NotDetected); Coronavirus 229E PCR Not Detected (NotDetected); Coronavirus CoV-2 (COVID19)PCR Not Detected (NotDetected); Coronavirus HKU1 PCR Not Detected (NotDetected); Coronavirus NL63 PCR Not Detected (NotDetected); Coronavirus OC43PCR Not Detected (NotDetected); Human Metapneumovirus PCR Not Detected (NotDetected); Influenza A PCR Not Detected (NotDetected); Influenza B PCR Not Detected (NotDetected); Mycoplasma pneumoniae PCR Not Detected (NotDetected); Parainfluenza Virus 1 PCR Not Detected (NotDetected); Parainfluenza Virus 2 PCR Not Detected (NotDetected); Parainfluenza Virus 3 PCR Not Detected (NotDetected); Parainfluenza Virus 4 PCR Not Detected (NotDetected); Respiratory Syncytial VirusPCR Not Detected (NotDetected); Rhinovirus/Enterovirus PCR Not Detected (NotDetected)
[2024-06-20] MEDS ORDERED: POLYETHYLENE (MIRALAX) 17 GM PACK PO PRN (00:40)
[2024-06-20] MEDS: DOXYCYCLINE HYCLATE 100 MG in DEXTROSE 5% MINI-B 100 ML IV STA (01:02)
[2024-06-20] MEDS ORDERED: CARBOHYDRATES FOR HYPOGLYCEMIA PO PRN (01:03)
[2024-06-20] MEDS ORDERED: GLUCOSE 10 TAB/TUBE PO PRN (01:03)
[2024-06-20] MEDS ORDERED: GLUCAGON FOR INJ 1 MG VIAL SQ PRN (01:03)
[2024-06-20] MEDS ORDERED: DEXTROSE 50% 50 ML SYRINGE IV PRN (01:03)
[2024-06-20] MEDS ORDERED: GLUCOSE 40% GEL 15 GM TUBE PO PRN (01:03)
[2024-06-20] MEDS: SODIUM CHLORIDE 0.9% 1,000 ML IV ONE (01:04)
[2024-06-20 01:32] LABS: Appearance Urine Cloudy (Clear); Bacteria Urine Automated None Seen (None Seen); Bilirubin Urine Negative (Negative); Blood Urine Trace (Negative); Color Urine Dark Yellow; Glucose Urine UA 1+ (Negative); Ketones Urine 3+ (Negative); Leukocyte Esterase Urine Trace (Negative); Nitrite Urine Negative (Negative); Protein Urine 4+ (Negative); Specific Gravity Urine 1.035 (1.000-1.030); Urobilinogen Urine Negative (Negative)
[2024-06-20] MEDS: ONDANSETRON INJ 2 MG/ML 2 ML VIAL IV PRN (02:00)
[2024-06-20] MEDS: KETOROLAC TROMETHAMINE 15 MG/ML VIAL IV ONE (02:00)
[2024-06-20] MEDS: cloNIDine HCL 0.1 MG TAB PO SCH (03:11)
[2024-06-20] MEDS: MELATONIN 3 MG TAB PO PRN (03:11)
[2024-06-20] MEDS: PROCHLORPERAZINE MALEATE 5 MG TAB PO PRN (03:12)
[2024-06-20] MEDS: HYDROmorphone INJ 0.5 MG/0.5 ML SYR IV STA (03:13)
[2024-06-20] MEDS: oxyCODONE HCL IR 5 MG TAB (IMMEDIATE RELEASE) PO PRN (05:34)
[2024-06-20] MEDS: ALBUT/IPRATROP 3MG/0.5MG NEB 3 ML VIAL NEB PRN (07:29)
[2024-06-20 07:57] LABS: Hematocrit (blood only) 31.9 % (37.0-47.0); Hemoglobin 10.3 g/dl (12.0-16.0); Mean Corpuscular Hemoglobin 23.8 pg (25.0-34.0); Mean Corpuscular Hgb Conc 32.3 g/dL (32.0-36.0); Mean Corpuscular Volume 73.8 fL (80.0-100.0); Mean Platelet Volume 9.7 fL (9.4-12.4); Platelet Count 325 K/uL (130-400); RDW Coefficient of Variation 16.4 % (11.5-14.5); RDW Standard Deviation 43.9 fL (36.4-46.3); Red Blood Count 4.32 M/uL (4.20-5.40); White Blood Count 10.05 K/ul (4.8-10.8)
[2024-06-20 08:11] LABS: BUN Creatinine Ratio 22.4 (10-20); Calcium 9.1 mg/dl (8.6-10.3); Creatinine Clr Calc Pharmacy 105.5 ml/min; Potassium 3.7 mmol/L (3.5-5.1)
[2024-06-20] MEDS: HYDROmorphone INJ 0.5 MG/0.5 ML SYR IV PRN ×2 (08:35→17:05)
[2024-06-20] MEDS: SUCRALFATE 1 GM/10 ML UDC PO SCH (08:35)
[2024-06-20] MEDS: POLYETHYLENE (MIRALAX) 17 GM PACK PO SCH (09:06)
[2024-06-20] MEDS: INSULIN ASPART PER UNIT CHARGE SC SCH (09:13)
[2024-06-20] MEDS: LANTUS PER UNIT CHARGE SQ SCH (09:13)
[2024-06-20] MEDS: CYANOCOBALAMIN (B-12) 500 MCG TABLET PO SCH (09:14)
[2024-06-20] MEDS: hydrALAZINE HCL 25 MG TAB PO SCH (09:14)
[2024-06-20] MEDS: FAMOTIDINE 20MG IV PUSH 20 MG/5 ML SYR IV SCH (09:14)
[2024-06-20] MEDS: PREGABALIN 100 MG CAP PO SCH (09:14)
[2024-06-20] MEDS: CLOPIDOGREL BISULFATE 75 MG TAB PO SCH (09:14)
[2024-06-20] MEDS: PANTOprazole 40 MG/10 ML SYR IV SCH (09:15)
[2024-06-20] MEDS: lisinopril 20 MG TAB PO SCH (09:15)
[2024-06-20] MEDS: LIDOCAINE 5% 1 PATCH TD SCH (09:15)
[2024-06-20] MEDS: DOXYCYCLINE HYCLATE 100 MG CAP PO SCH (09:15)
[2024-06-20] MEDS: DULoxetine HCL 60 MG CAP PO SCH (09:16)
[2024-06-20] MEDS: METOPROLOL SUCC 50MG EXT REL TAB PO SCH (09:16)
[2024-06-20] MEDS: DOCUSATE SODIUM 100 MG CAP PO SCH (09:17)
[2024-06-20] MEDS: NIFEdipine EXTENDED REL 30 MG TABCR PO SCH (10:07)
--- NOTE | 2024-06-20 11:42 | Gastrointestinal Consultation ---
<Statement entered by Haroldo Gant MD - 06/20/24 17:00> Patient seen and examined. Case discussed with Christiano BYRNE. Patient had EGD several weeks ago showing LA Grade D esophagitis. Her Hgb is the same as discharge from that admission. Rec: Continue antipeptic therapy No need for EGD at this point but should have another as OP in a couple of months. GI Service will sign off. Date of Consultation June 20, 2024 Assessment & Plan (1) Nausea & vomiting: (2) Abdominal pain: Plan Patient with reported hematemesis, but this has since resolved. hgb on presentation was 13.6. she is still feeling nauseated and having epigastric pain . Recent EGD 06/04/24 with LA-D esophagitis. - continue with protonix 40mg bid, famotidine 20mg BID, and carafate 1gm qid. - follow hgb/hct. - avoid nsaids. - further recommendations to follow, see MD append. History of Present Illness Reason for Consultation: GIB, abdominal pain, vomiting Requesting Physician: Milan Senior MD Attending Physician: Milan Senior MD History of Present Illness Patient is a 59 year old female with a past medical history of GERD, gastroparesis, HTN, PAD, DM, and chronic pain (on chronic opioids) who presented to the ED on 06/19 due to complaints of nausea/vomiting, fevers, chills, and epigastric pain. She reports that yesterday she had several episodes of hematemesis. she tells me that she had several episodes of hematemesis in the ED but this is not documented. Her hgb upon evaluation was 13.6. She tells me that at home she was using aciphex 20mg daily and carafate 1 gm qid. she feels she was still getting reflux despite this. Patient tells me that she has had no further emesis today but has had ongoing nausea. no change in bowel frequency but she feels they have been darker brown. For breakfast today she had eggs and tea, but had to stop due to nausea. EGD 06/04/24 LA-D esophagitis, gastritis. Allergies Allergy/AdvReac Type Severity Reaction Status Date / Time morphine Allergy Severe blisters Verified 02/10/24 22:40 in mouth Sulfa (Sulfonamide Allergy Severe rash/swelli Verified 02/10/24 22:40 Antibiotics) ng amoxicillin [From Augmentin] Allergy Intermediate itching/power Verified 02/10/24 22:40 h ceftriaxone [From Rocephin] Allergy Intermediate Hives Verified 02/10/24 22:40 clavulanic acid Allergy Intermediate itching/power Verified 02/10/24 22:40 [From Augmentin] h erythromycin base Allergy Intermediate Hives Verified 02/10/24 22:40 vancomycin Allergy Intermediate YULIYA Verified 02/10/24 22:40 SYNDROME---CAN TAKE IF VERY SLOW DRIP. adhesive AdvReac Intermediate DERMABOND Verified 02/10/24 22:40 excoriates skin gabapentin AdvReac Intermediate Nausea Verified 02/10/24 22:40 iron [From Venofer] AdvReac Intermediate Hypertensio Verified 02/10/24 22:40 n Home Medications Medication Instructions Recorded Confirmed Type insulin glargine 100 unit/mL (3 10 unit subcut HS 10/17/22 06/02/24 History mL) subcutaneous pen (Lantus Solostar U-100 Insulin) albuterol sulfate 90 mcg/actuation 2 puff inhalation QID PRN 05/08/23 06/02/24 History aerosol inhaler Shortness Of Breath Or Wheezing alprazolam 1 mg tablet 1 mg PO TID PRN Anxiety 05/08/23 06/02/24 History docusate sodium 100 mg capsule 100 mg PO BID 05/08/23 06/02/24 History metoprolol succinate 50 mg 50 mg PO QAM 05/08/23 06/02/24 History tablet,extended release 24 hr (Toprol XL) clopidogrel 75 mg tablet (Plavix) 75 mg PO DAILY #30 tabs 05/10/23 06/02/24 Rx prochlorperazine maleate 5 mg 5 mg PO TID PRN Nausea 06/13/23 06/02/24 History tablet aspirin 81 mg tablet,delayed 81 mg PO DAILY 09/19/23 06/02/24 History release hydralazine 25 mg tablet 25 mg PO TID 09/19/23 06/02/24 History nifedipine 60 mg tablet,extended 120 mg PO DAILY 09/19/23 06/02/24 History release 24 hr lidocaine 5 % topical patch 1 patch transdermal QA #14 ea 12/13/23 06/02/24 Rx clonidine HCl 0.1 mg tablet 0.1 mg PO Q8H #90 tabs 04/03/24 06/02/24 Rx cyanocobalamin (vitamin B-12) 500 1,000 mcg (2 x 500 mcg) PO QAM #30 04/03/24 06/02/24 Rx mcg tablet tabs naloxone 4 mg/actuation nasal spray 4 mg intranasal ONCE PRN opioid 04/03/24 06/02/24 Rx overdose #2 ea polyethylene glycol 3350 17 gram 17 g PO BID #0 ea 04/03/24 06/02/24 Rx oral powder packet (Miralax) pregabalin 100 mg capsule (Lyrica) 100 mg PO TID #90 caps 04/03/24 06/02/24 Rx sennosides 8.6 mg tablet (Senokot) 17.2 mg (2 x 8.6 mg) PO BID PRN 04/03/24 06/02/24 Rx constipation #60 tabs duloxetine 60 mg capsule,delayed 60 mg PO DAILY 06/02/24 06/02/24 History release insulin aspart 5 unit subcut TIDM 06/02/24 06/02/24 History (niacinamide)(U-100) 100 unit/mL(3 mL) subcutaneous pen (Fiasp FlexTouch U-100 Insulin) lisinopril 20 mg tablet 20 mg PO DAILY 06/02/24 06/02/24 History quetiapine 50 mg tablet 50 mg PO HS 06/02/24 06/02/24 History ropinirole 4 mg tablet 8 mg PO HS 06/02/24 06/02/24 History sucralfate 100 mg/mL oral 1 g (10 mL) PO ACHS #200 mL 06/05/24 Rx suspension (Carafate) oxycodone 20 mg tablet 20 mg PO Q6H PRN pain #12 tabs 06/11/24 Rx rabeprazole 20 mg tablet,delayed 20 mg PO DAILY 8 weeks #56 tabs 06/11/24 Rx release Patient History Medical History Hypertension Groin pain Foot pain Infection of left great toe due to methicillin resistant Staphylococcus aureus (MRSA) Diastolic CHF COVID-19 Osteomyelitis of great toe of left foot Opiate dependence Opiate abuse, continuous Acidosis, lactic Acute dehydration Gastroenteritis Sepsis Shortness of breath Opioid dependence Hypomagnesemia Insomnia 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 No issues per anesthesia postop progress note. Anemia Hyponatremia Cellulitis Peripheral neuropathy Benzodiazepine withdrawal Right second toe ulcer Diabetes mellitus type 2, uncontrolled Hyperlipidemia Seizures Gastritis Numbness of lower extremity Hypertriglyceridemia CAD (coronary artery disease) History of tobacco use Benzodiazepine dependence Diabetic neuropathy Abdominal pain Gastroparesis Esophagitis determined by endoscopy GIB (gastrointestinal bleeding) Insulin dependent diabetes mellitus DM2 (diabetes mellitus, type 2) IDDM, A1c 07/2021-11% Surgical History History of right below knee amputation (12/22/21) Right Below Knee Amputation(Right) - Davon Good MD, FACS History of lumbar surgery History of esophagogastroduodenoscopy (EGD) Family History Mother , age 63 Myocardial infarction Father , age 68 or 69 Myocardial infarction Brother S/P CABG (coronary artery bypass graft) Sister Myocardial infarction x 3; she is 57yo Social History Smoking Status: Former smoker Tobacco Type: Cigarettes packs per day: 0.5; Second Hand Exposure: No; Do You Dip or Chew Tobacco: No; Tobacco Cessation Education Requested by Patient: No Hx Alcohol Use: No Hx Substance Use: Yes Prescribed Medications: Marijuana Last Used Substance: Unknown Last Used Substance Other:: Medical marijuana Substance Use Type Other:: Medical marijuana Preferred Language: Lithuanian Communication Ability: Effective Visual Impairment: No Limitations Hearing Ability: Normal Computer Lab Para Professional Required: No Beliefs That Will Affect Care: None marital status: Current Living Situation: Spouse Current Living Situation Comment: lives at home with current occupational status: unemployed 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 Other Information That Helps Us Care for You: No other: raising a grandchild as well; lives in [place] Feels Safe at Home: Yes Safety Concerns: Feels Safe At This Time and Afraid for Self Diet: diabetic and low salt during the past year weight has: remained stable Assistive Devices: Walker and Wheelchair Review of Systems Review of Systems: All systems reviewed & are unremarkable except as noted in HPI & below Physical Exam Constitutional: WD/WN, vitals as above Respiratory: normal respiratory effort, lungs clear to auscultation Cardiovascular: Rate/Rhythm: regular rate and regular rhythm Gastrointestinal (Abdomen): epigastric tenderness, no guarding, soft, normal bowel sounds. Psychiatric: Orientation: alert and oriented x 3 Results & Data Vital Signs (Past 12 Hours) Vital Signs Temp Pulse Pulse Pulse Resp BP BP 06/20/24 07:51 98.1 F 80 18 166/69 H 06/20/24 07:30 72 18 06/20/24 05:43 86 177/75 H 06/20/24 05:36 06/20/24 03:31 98.1 F 86 18 197/73 H 06/20/24 02:00 84 20 156/73 H 06/20/24 00:57 86 Pulse Ox O2 Del Method 06/20/24 07:51 98 Room Air 06/20/24 07:30 98 Room Air 06/20/24 05:43 06/20/24 05:36 Room Air 06/20/24 03:31 97 Room Air 06/20/24 02:00 96 Room Air 06/20/24 00:57 Coding Level of Care Code 19382 IN/OBS CONSULT LVL 3,45M Diagnoses Nausea & vomiting R11.2 Vomiting type: unspecified Abdominal pain R10.9 (1) Nausea & vomiting Vomiting type: unspecified Qualified Code(s): R11.2 - Nausea with vomiting, unspecified
--- NOTE | 2024-06-20 13:31 | Electrocardiogram Report ---
Test Reason : Blood Pressure : */* mmHG Vent. Rate : 106 BPM Atrial Rate : 106 BPM P-R Int : 136 ms QRS Dur : 84 ms QT Int : 336 ms P-R-T Axes : 86 85 89 degrees QTcB Int : 446 ms Sinus tachycardia Poor R wave progression, consider anterior VA vs. lead placement vs. LVH Abnormal ECG When compared with ECG of 02-Jun-2024 02:08, No significant change was found Confirmed by Julito Colon ([id number]) on 06/20/2024 1:30:29 PM Referred By: Vince Vernon Confirmed By: Julito Colon
[2024-06-20] MEDS: guaiFENesin/DEXTROM SYRUP 200MG/20MG 10ML UDC PO PRN (18:11)
[2024-06-20] MEDS: rOPINIRole HCL 2 MG TABLET PO SCH (20:28)
[2024-06-20] MEDS: QUEtiapine FUMARATE 25 MG TABLET PO SCH (20:29)
--- NOTE | 2024-06-21 06:25 | Billing Data ---
Date of Service June 21, 2024 Coding Level of Care Code 35439 INT INP/OBS CARE
[2024-06-21 06:50] LABS: Hematocrit (blood only) 31.2 % (37.0-47.0); Hemoglobin 9.6 g/dl (12.0-16.0); Mean Corpuscular Hemoglobin 23.6 pg (25.0-34.0); Mean Corpuscular Hgb Conc 30.8 g/dL (32.0-36.0); Mean Corpuscular Volume 76.7 fL (80.0-100.0); Mean Platelet Volume 9.8 fL (9.4-12.4); Platelet Count 291 K/uL (130-400); RDW Coefficient of Variation 16.8 % (11.5-14.5); RDW Standard Deviation 46.9 fL (36.4-46.3); Red Blood Count 4.07 M/uL (4.20-5.40); White Blood Count 11.01 K/ul (4.8-10.8)
[2024-06-21 07:13] LABS: BUN Creatinine Ratio 31.9 (10-20); Calcium 8.8 mg/dl (8.6-10.3); Potassium 4.1 mmol/L (3.5-5.1)
--- NOTE | 2024-06-21 13:34 | Hospitalist Progress Note ---
Date of Service June 21, 2024 Assessment & Plan (1) Pneumonia: Plan: Pt is a 59 yo female with PMH of GERD, gastroparesis, HTN, PAD, DM, and chronic pain (on chronic opioids) presenting to the hospital d/t nausea/vomiting. Sepsis secondary to PNA - on admission, pt tachycardic to the 90s, leukocytosis to 12.6, normal respirations, afebrile - CXR showing LLL PNA vs. atelectasis - duoneb PRN, IS - s/p doxy in ER; will continue with doxy 100mg BID d/t suspicion for atypical PNA rather than typical bacterial pneumonia (2) Type 2 diabetes mellitus: Plan: DM - most recent A1c 05/2024 7.1% - will start with insulin glargine 5u BID; SSI PRN (3) Chronic pain syndrome: Plan: - currently on oxycodone 20 mg q4hr PRN at home; continue home regimen while inpatient - pt stating she is in severe pain, dilaudid 0.5mg IV Q3h given, will begin taper tmw. (4) Hematemesis: Plan: Vomiting/hematemesis - unclear etiology; pt has hx of gastroparesis with recent admission for flare vs. nausea secondary to PNA vs. gastritis (recent EGD last admission 06/04) - s/p 2L NS in ER/on admission; encourage PO intake as able - zofran IV PRN, home compazine PRN - pantoprazole IV BID, famotidine IV BID, carafate QID - will hold aspirin and VTE ppx in the setting of hematemesis/gastritis - trend Hgb - GI consult appreciated - h/h stable, likely 2nd to esophagitis, con't PPI and carafate - no indication for endoscopy at this time (5) HTN (hypertension): Plan: HTN - continue home regimen; clonidine, hydralazine, lisinopril, metoprolol, and nifedipine Plan Con't to treat PNA over weekend, possible d/c 06/22 Admission and Anticipated Discharge Date Admission Date: June 20, 2024 Subjective No events overnight. Pt still complaining of pain in her ribs when she coughs. Review of Systems Review of Systems: CONST: Negative for fever, body aches and chills. HENT: Negative for neck pain/stiffness, headache, congestion, sore throat, s welling. EYES: Negative for discharge/pain or vision changes. RESP: Negative for cough/hemoptysis and shortness of breath. CV: Negative chest pain, difficulty breathing, palpitations. ABD: Negative pain, nausea, vomiting. : Negative increase frequency, dysuria, blood in urine or stool. MUSC: Negative for muscle aches, edema. SKIN: Negative rash, lesions/sores. NEURO: Negative headache, dizziness, weakness. Physical Exam Physical Exam: GENERAL APPEARANCE NAD, activity normal for age, well developed/ well nourished, no cyanosis, pallor, or diaphoresis. EYES lids/conjunctiva normal. EARS/NOSE/THROAT Mucous membranes moist, nares normal, lips/teeth normal uvula midline without oral pharyngeal erythema, exudate or swelling TMs normal bilaterally. No lymphangitis/lymphedema. HEAD/NECK normocephalic atraumatic, no facial trauma, neck is supple. RESPIRATORY respiratory effort normal, speaks in full sentences, no tripod position, no accessory muscle use. Lungs clear to auscultation without rhonchi, wheezes, rales CARDIAC Regular rate and rhythm, no edema. ABDOMINAL Soft, ND/NT. No evidence of fluid wave. No pulsatile masses on exam, rebound tenderness, Tran sign or pain over Mcburney's point. MUSCLES/EXTREMITIES No abnormal range of motion, no swelling. SKIN Warm, pink and dry. No rashes, dermatoses, petechiae or lesions. NEUROLOGICAL Speech is clear and appropriate. Normal level of consciousness. Gait and coordination are normal. 5/5 strength in all extremities. PSYCH Normal mood and affect. Judgement/competence is appropriate Results & Data Results & Data Vital Signs (Past 12 Hours) Vital Signs Temp Pulse Resp BP Pulse Ox O2 Del Method 06/21/24 08:02 36.4 C L 63 16 160/74 H 96 Room Air 06/21/24 07:15 Room Air PG Care Time/CCT Total # of Minutes Spent Total Time Spent with Patient: Total time spent is greater than 50% in coordination of care (as documented) at patient's floor/unit and/or counseling patient: Coding Level of Care Code 05087 SUB INP/OBS CARE 2/35MIN Diagnoses Pneumonia J18.9 Laterality: left Lung location: lower lobe of lung Pneumonia type: due to unspecified organism Type 2 diabetes mellitus E11.69; Z79.4 Diabetes mellitus complication status: with other specified complication Diabetes mellitus correction insulin use: with correction use Chronic pain syndrome G89.4 Hematemesis K92.0 HTN (hypertension) I10 (1) Pneumonia Laterality: left Lung location: lower lobe of lung Pneumonia type: due to unspecified organism Qualified Code(s): J18.9 - Pneumonia, unspecified organism (2) Type 2 diabetes mellitus Diabetes mellitus complication status: with other specified complication Diabetes mellitus correction insulin use: with correction use Qualified Code(s): E11.69 - Type 2 diabetes mellitus with other specified complication; 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
[2024-06-21] MEDS: ACETAMINOPHEN 325 MG TAB PO PRN (14:46)
[2024-06-21] MEDS: PNEUMOCOCCAL VACCINE (PCV20) 20-VAL CONJ-DIP CRM/PF 0.5 ML SYR IM ONE (15:30)
[2024-06-21] MEDS: INFLUENZA VACC TS2024-25(6m+)/PF (IIV3) 0.5mL Syr IM ONE (15:31)
[2024-06-22] MEDS ORDERED: guaiFENesin/CODEINE 100MG/10MG 5ML UDC PO PRN (11:25)
--- NOTE | 2024-06-22 11:27 | Hospitalist Progress Note ---
Date of Service June 22, 2024 Assessment & Plan (1) Pneumonia: Plan: Pt is a 59 yo female with PMH of GERD, gastroparesis, HTN, PAD, DM, and chronic pain (on chronic opioids) presenting to the hospital d/t nausea/vomiting. Sepsis secondary to PNA - on admission, pt tachycardic to the 90s, leukocytosis to 12.6, normal respirations, afebrile - CXR showing LLL PNA vs. atelectasis - duoneb PRN, IS - s/p doxy in ER; will continue with doxy 100mg BID d/t suspicion for atypical PNA rather than typical bacterial pneumonia (2) Type 2 diabetes mellitus: Plan: DM - most recent A1c 05/2024 7.1% - will start with insulin glargine 5u BID; SSI PRN (3) Chronic pain syndrome: Plan: - currently on oxycodone 20 mg q4hr PRN at home; continue home regimen while inpatient - pt stating she is in severe pain, dilaudid 0.5mg IV Q3h given, will begin taper tmw. (4) Hematemesis: Plan: Vomiting/hematemesis - unclear etiology; pt has hx of gastroparesis with recent admission for flare vs. nausea secondary to PNA vs. gastritis (recent EGD last admission 06/04) - s/p 2L NS in ER/on admission; encourage PO intake as able - zofran IV PRN, home compazine PRN - pantoprazole IV BID, famotidine IV BID, carafate QID - will hold aspirin and VTE ppx in the setting of hematemesis/gastritis - trend Hgb - GI consult appreciated - h/h stable, likely 2nd to esophagitis, con't PPI and carafate - no indication for endoscopy at this time (5) HTN (hypertension): Plan: HTN - continue home regimen; clonidine, hydralazine, lisinopril, metoprolol, and nifedipine Plan Con't to treat PNA over weekend, possible d/c 06/23 Admission and Anticipated Discharge Date Admission Date: June 20, 2024 Subjective No events overnight. Pt still complaining of pain in her ribs when she coughs. Review of Systems Review of Systems: CONST: Negative for fever, body aches and chills. HENT: Negative for neck pain/stiffness, headache, congestion, sore throat, swelling. EYES: Negative for discharge/pain or vision changes. RESP: Negative for cough/hemoptysis and shortness of breath. CV: Negative chest pain, difficulty breathing, palpitations. ABD: Negative pain, nausea, vomiting. : Negative increase frequency, dysuria, blood in urine or stool. MUSC: Negative for muscle aches, edema. SKIN: Negative rash, lesions/sores. NEURO: Negative headache, dizziness, weakness. Physical Exam Physical Exam: GENERAL APPEARANCE NAD, activity normal for age, well developed/ well nourished, no cyanosis, pallor, or diaphoresis. EYES lids/conjunctiva normal. EARS/NOSE/THROAT Mucous membranes moist, nares normal, lips/teeth normal uvula midline without oral pharyngeal erythema, exudate or swelling TMs normal bilaterally. No lymphangitis/lymphedema. HEAD/NECK normocephalic atraumatic, no facial trauma, neck is supple. RESPIRATORY respiratory effort normal, speaks in full sentences, no tripod position, no accessory muscle use. Lungs clear to auscultation without rhonchi, wheezes, rales CARDIAC Regular rate and rhythm, no edema. ABDOMINAL Soft, ND/NT. No evidence of fluid wave. No pulsatile masses on exam, rebound tenderness, Tran sign or pain over Mcburney's point. MUSCLES/EXTREMITIES No abnormal range of motion, no swelling. SKIN Warm, pink and dry. No rashes, dermatoses, petechiae or lesions. NEUROLOGICAL Speech is clear and appropriate. Normal level of consciousness. Gait and coordination are normal. 5/5 strength in all extremities. PSYCH Normal mood and affect. Judgement/competence is appropriate Results & Data Results & Data Vital Signs (Past 12 Hours) Vital Signs Temp Pulse Resp BP Pulse Ox O2 Del Method 06/22/24 09:17 Room Air 06/22/24 07:32 36.8 C 67 16 184/76 H 95 Room Air PG Care Time/CCT Total # of Minutes Spent Total Time Spent with Patient: Total time spent is greater than 50% in coordination of care (as documented) at patient's floor/unit and/or counseling patient: Coding Level of Care Code 71092 SUB INP/OBS CARE 2/35MIN Diagnoses Pneumonia J18.9 Laterality: left Lung location: lower lobe of lung Pneumonia type: due to unspecified organism Type 2 diabetes mellitus E11.69; Z79.4 Diabetes mellitus complication status: with other specified complication 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: with joint terminal attack controller use Chronic pain syndrome G89.4 Hematemesis K92.0 HTN (hypertension) I10 (1) Pneumonia Laterality: left Lung location: lower lobe of lung Pneumonia type: due to unspecified organism Qualified Code(s): J18.9 - Pneumonia, unspecified organism (2) Type 2 diabetes mellitus Diabetes mellitus complication status: with other specified complication 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: with joint terminal attack controller use Qualified Code(s): E11.69 - Type 2 diabetes mellitus with other specified complication; 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
--- NOTE | 2024-06-23 11:54 | Discharge Summary ---
Discharge Summary Date of Service June 23, 2024 Principal Dx & Hospital Course #1 = Principal Diagnosis (1) Pneumonia: Pt is a 59 yo female with PMH of GERD, gastroparesis, HTN, PAD, DM, and chronic pain (on chronic opioids) presenting to the hospital d/t nausea/vomiting. Sepsis secondary to PNA - on admission, pt tachycardic to the 90s, leukocytosis to 12.6, normal respirations, afebrile - CXR showing LLL PNA vs. atelectasis - duoneb PRN, IS - s/p doxy in ER; will continue with doxy 100mg BID d/t suspicion for atypical PNA rather than typical bacterial pneumonia (2) Type 2 diabetes mellitus: DM - most recent A1c 05/2024 7.1% - will start with insulin glargine 5u BID; SSI PRN (3) Chronic pain syndrome: - currently on oxycodone 20 mg q4hr PRN at home; continue home regimen while inpatient - pt stating she is in severe pain, dilaudid 0.5mg IV Q3h given, will begin taper tmw. (4) Hematemesis: Vomiting/hematemesis - unclear etiology; pt has hx of gastroparesis with recent admission for flare vs. nausea secondary to PNA vs. gastritis (recent EGD last admission 06/04) - s/p 2L NS in ER/on admission; encourage PO intake as able - zofran IV PRN, home compazine PRN - pantoprazole IV BID, famotidine IV BID, carafate QID - will hold aspirin and VTE ppx in the setting of hematemesis/gastritis - trend Hgb - GI consult appreciated - h/h stable, likely 2nd to esophagitis, con't PPI and carafate - no indication for endoscopy at this time (5) HTN (hypertension): HTN - continue home regimen; clonidine, hydralazine, lisinopril, metoprolol, and nifedipine Plan Con't to treat PNA over weekend, possible d/c 06/23 Admission HPI Per Admitting Provider Pt is a 59 yo female with PMH of GERD, gastroparesis, HTN, PAD, DM, and chronic pain (on chronic opioids) presenting to the hospital d/t nausea/vomiting. Pt notes over the last two days she has been vomiting, coughing, and with fevers/chills. She states she is in a lot of pain in her ribs due to coughing and "not being able to keep her percocet down." Upon further clarification, pt is on oxycodone at home, not percocet. Pt also notes abdominal pain, mostly in the epigastric region, and describes it as a burning. She notes she had an EGD when she was here recently. In the ER, pt was given a duoneb treatment, compazine x1, tylenol 1000mg x1, 1L NS, doxy 100mg x1, pantoprazole 40 mg IV x1, and pepcid 20 mg x1. Discharge Exam GENERAL APPEARANCE NAD, activity normal for age, well developed/ well nourished, no cyanosis, pallor, or diaphoresis. EYES lids/conjunctiva normal. EARS/NOSE/THROAT Mucous membranes moist, nares normal, lips/teeth normal uvula midline without oral pharyngeal erythema, exudate or swelling TMs normal bilaterally. No lymphangitis/lymphedema. HEAD/NECK normocephalic atraumatic, no facial trauma, neck is supple. RESPIRATORY respiratory effort normal, speaks in full sentences, no tripod position, no accessory muscle use. Lungs clear to auscultation without rhonchi, wheezes, rales CARDIAC Regular rate and rhythm, no edema. ABDOMINAL Soft, ND/NT. No evidence of fluid wave. No pulsatile masses on exam, rebound tenderness, Tran sign or pain over Mcburney's point. MUSCLES/EXTREMITIES No abnormal range of motion, no swelling. SKIN Warm, pink and dry. No rashes, dermatoses, petechiae or lesions. NEUROLOGICAL Speech is clear and appropriate. Normal level of consciousness. G ait and coordination are normal. 5/5 strength in all extremities. PSYCH Normal mood and affect. Judgement/competence is appropriate Discharge Plan Discharge Items Patient Disposition: Home - Self-Care Reason For Visit: PNA Discharge Diagnosis: PNA Condition on Discharge: Good Activity: Resume your previous activity Non-emergency contact: Primary Care Provider Call non-emergency contact if: you have any medication questions and your symptoms worsen Follow-up/Referrals: Vince Vernon, [Primary Care Provider] - Diet: Regular Addtl Attending Provider Instructions: Follow up with PMD for pain managment Pending Studies at Discharge: No Stand-Alone Forms: [place], Smoking Cessation Medications and DC Order Prescriptions: New doxycycline hyclate 100 mg Capsule 100 mg PO BID Qty: 14 0RF Continued prochlorperazine maleate 5 mg tablet 5 mg PO TID PRN (Reason: Nausea) insulin glargine [Lantus Solostar U-100 Insulin] 100 unit/mL (3 mL) insulin pen 10 unit SUBCUT HS metoprolol succinate [Toprol XL] 50 mg tablet extended release 24 hr 50 mg PO QAM albuterol sulfate 90 mcg/actuation HFA aerosol inhaler 2 puff INHALATION QID PRN (Reason: Shortness Of Breath Or Wheezing) docusate sodium 100 mg Capsule 100 mg PO BID alprazolam 1 mg tablet 1 mg PO TID PRN (Reason: Anxiety) clopidogrel [Plavix] 75 mg tablet 75 mg PO DAILY Qty: 30 0RF hydralazine 25 mg tablet 25 mg PO TID aspirin 81 mg Tablet,Delayed Release (Dr/Ec) 81 mg PO DAILY nifedipine 60 mg tablet extended release 24hr 120 mg PO DAILY lidocaine 5 % Adhesive Patch,Medicated 1 patch transdermal QAM Qty: 14 0RF clonidine HCl 0.1 mg Tablet 0.1 mg PO Q8H Qty: 90 0RF pregabalin [Lyrica] 100 mg Capsule 100 mg PO TID Qty: 90 0RF polyethylene glycol 3350 [Miralax] 17 gram Powder In Packet 17 g PO BID Qty: 0 0RF Rx Instructions: 1 capful twice a day for constipation, buy over the counter sennosides [Senokot] 8.6 mg Tablet 17.2 mg PO BID PRN (Reason: constipation) Qty: 60 0RF cyanocobalamin (vitamin B-12) 500 mcg Tablet 1,000 mcg PO QAM Qty: 30 0RF naloxone 4 mg/actuation spray,non-aerosol 4 mg intranasal ONCE PRN (Reason: opioid overdose) Qty: 2 0RF Rx Instructions: call 911 if used, may repeat dose if ineffective quetiapine 50 mg tablet 50 mg PO HS ropinirole 4 mg tablet 8 mg PO HS Fiasp FlexTouch U-100 Insulin 100 unit/mL (3 mL) insulin pen 5 unit SUBCUT TIDM duloxetine 60 mg capsule,delayed release(DR/EC) 60 mg PO DAILY lisinopril 20 mg Tablet 20 mg PO DAILY sucralfate [Carafate] 100 mg/mL suspension 1 g PO ACHS Qty: 200 0RF oxycodone 20 mg tablet 20 mg PO Q6H PRN (Reason: pain) Qty: 12 0RF Rx Instructions: temporary dose increase. resume usual 10 mg dose after three days rabeprazole 20 mg tablet,delayed release (DR/EC) 20 mg PO DAILY 56 Days Qty: 56 0RF Discharge Orders: Discharge Order (Routine); Ordered 06/23/24 Ordered By: Milan Senior Admission Data Admit Date/Time: 06/20/24 00:41 Attending Provider: Milan Senior Admit Provider: Jayson Staton Primary Care Provider: Vince Vernon Other Providers: Jayson Staton; Haroldo Gant Hospital Stay Data Consultations 06/20/24 00:03 ED Decision to Admit Stat 06/20/24 10:39 Consult Gastroenterology Routine Pending Results Patient Have Any Pending Studies at Discharge: No Discharge Instructions Given to Patient (Per Discharging Provider) Follow up with PMD for pain managment Total Time Total Time Spent Total Time Spent (In Minutes): 50 Coding Level of Care Code 97946 INP/OBS DISCH >30 MIN Diagnoses Pneumonia J18.9 Laterality: left Lung location: lower lobe of lung Pneumonia type: due to unspecified organism Type 2 diabetes mellitus E11.69; Z79.4 Diabetes mellitus complication status: with other specified complication Diabetes mellitus intermediate frame tender insulin use: with intermediate frame tender use Chronic pain syndrome G89.4 Hematemesis K92.0 HTN (hypertension) I10
[2024-06-23] MEDS: hydrALAZINE HCL 20 MG/ML VIAL IV PRN (15:50)
[2024-06-23] MEDS: HYDROmorphone INJ 1 MG/ML SYRINGE IV ONE (17:00)
[2024-06-23] MEDS: hydrALAZINE HCL 20 MG/ML VIAL IV STA (18:16)
[2024-06-24] MEDS: NIFEdipine EXTENDED REL 30 MG TABCR PO SCH (09:27)
--- NOTE | 2024-06-24 13:24 | Hospitalist Progress Note ---
Date of Service June 24, 2024 Assessment & Plan (1) Pneumonia: Plan: -resolving - CXR showing LLL PNA vs. atelectasis - duoneb PRN, IS - continue with doxy 100mg BID (2) Type 2 diabetes mellitus: Plan: - insulin glargine 5u BID; SSI PRN (3) Chronic pain syndrome: Plan: - currently on oxycodone 20 mg q4hr PRN at home; continue home regimen while inpatient - pt stating she is in severe pain, dilaudid 0.5mg IV Q3h increased to 1mg IV Q3h pending MRI L-spine results -MRI L spine ordered (4) Hematemesis: Plan: Vomiting/hematemesis - unclear etiology; pt has hx of gastroparesis with recent admission for flare vs. nausea secondary to PNA vs. gastritis (recent EGD last admission 06/04) - s/p 2L NS in ER/on admission; encourage PO intake as able - zofran IV PRN, home compazine PRN - pantoprazole IV BID, famotidine IV BID, carafate QID - will hold aspirin and VTE ppx in the setting of hematemesis/gastritis - trend Hgb - GI consult appreciated - h/h stable, likely 2nd to esophagitis, con't PPI and carafate - no indication for endoscopy at this time (5) HTN (hypertension): Plan: HTN - continue home regimen; clonidine, hydralazine, lisinopril, metoprolol, and nifedipine -Hydralizine 10mg IV Qhrs prn Plan Follow up MRI L-spine to assess for possible etiology of patient's intractable back pain. Pt s/p lumbar fusion surgery. Admission and Anticipated Discharge Date Admission Date: June 20, 2024 Subjective Pt complaining of intractable back pain 10/10 that radiates to her shoulders. She is crying and very upset, stating that she cannot live with the pain. He blood pressure was reported to be elevated since yesterday. Pt requesting increase in Dilaudid to cope with the pain. Review of Systems Review of Systems: CONST: Negative for fever, body aches and chills. HENT: Negative for neck pain/stiffness, headache, congestion, sore throat, swelling. EYES: Negative for discharge/pain or vision changes. RESP: Negative for cough/hemoptysis and shortness of breath. CV: Negative chest pain, difficulty breathing, palpitations. ABD: Negative pain, nausea, vomiting. : Negative increase frequency, dysuria, blood in urine or stool. MUSC: Negative for muscle aches, edema. SKIN: Negative rash, lesions/sores. NEURO: Negative headache, dizziness, weakness. Physical Exam Physical Exam: GENERAL APPEARANCE NAD, activity normal for age, well developed/ well nourished, no cyanosis, pallor, or diaphoresis. EYES lids/conjunctiva normal. EARS/NOSE/THROAT Mucous membranes moist, nares normal, lips/teeth normal uvula midline without oral pharyngeal erythema, exudate or swelling TMs normal bilaterally. No lymphangitis/lymphedema. HEAD/NECK normocephalic atraumatic, no facial trauma, neck is supple. RESPIRATORY respiratory effort normal, speaks in full sentences, no tripod position, no accessory muscle use. Lungs clear to auscultation without rhonchi, wheezes, rales CARDIAC Regular rate and rhythm, no edema. ABDOMINAL Soft, ND/NT. No evidence of fluid wave. No pulsatile masses on exam, rebound tenderness, Tran sign or pain over Mcburney's point. MUSCLES/EXTREMITIES No abnormal range of motion, no swelling. SKIN Warm, pink and dry. No rashes, dermatoses, petechiae or lesions. NEUROLOGICAL Speech is clear and appropriate. Normal level of consciousness. Gait and coordination are normal. 5/5 strength in all extremities. PSYCH Normal mood and affect. Judgement/competence is appropriate Results & Data Results & Data Vital Signs (Past 12 Hours) Vital Signs Temp Pulse Pulse Resp BP BP Pulse Ox 06/24/24 10:38 155/68 H 06/24/24 09:26 65 162/66 H 06/24/24 08:13 71 167/67 H 96 06/24/24 07:36 06/24/24 07:16 36.7 C 69 16 90 06/24/24 07:11 166/65 H 06/24/24 06:04 66 20 214/73 H 94 O2 Del Method 06/24/24 10:38 06/24/24 09:26 06/24/24 08:13 Room Air 06/24/24 07:36 Room Air 06/24/24 07:16 Room Air 06/24/24 07:11 06/24/24 06:04 Room Air PG Care Time/CCT Total # of Minutes Spent Total Time Spent with Patient: Total time spent is greater than 50% in coordination of care (as documented) at patient's floor/unit and/or counseling patient: Coding Level of Care Code 71068 SUB INP/OBS CARE 2/35MIN Diagnoses Pneumonia J18.9 Laterality: left Lung location: lower lobe of lung Pneumonia type: due to unspecified organism Type 2 diabetes mellitus E11.69; Z79.4 Diabetes mellitus complication status: with other specified complication 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
[2024-06-24] MEDS: HYDROmorphone INJ 1 MG/ML SYRINGE IV PRN (15:17)
[2024-06-24] MEDS ORDERED: LORazepam 2 MG/1 ML VIAL IV STA (18:12)
[2024-06-24] MEDS: LORazepam 2 MG/1 ML VIAL IV PRN (21:28)
[2024-06-24] MEDS: GADOBUTROL 65ML VIAL IV ONE (22:54)
--- NOTE | 2024-06-25 01:24 | Magnetic Resonance Report ---
Exam(s): MRI L SPINE W/WO Contrast IV Amt: 6cc gadavist EXAM: MR Lumbar Spine Without and With Intravenous Contrast CLINICAL HISTORY: Reason for exam: back pain. TECHNIQUE: Magnetic resonance images of the lumbar spine without and with intravenous contrast in multiple planes. CONTRAST: Patient received 6cc gadavist of IV contrast COMPARISON: Prior MRI of the lumbar spine from December 04, 2023. FINDINGS: This study is limited secondary to motion artifact. Vertebrae: There are 5 lumbar type vertebral bodies with a mild generalized curved to the right and normal lumbar lordosis. There is a mild grade 1 anterolisthesis of L4 and L5 measuring 3 mm. Patient is status post posterior fusion of L5 and S1 with transpedicular screws and connecting rods in place. Status post posterior decompression of S1. The bone marrow signal is heterogeneous with reactive endplate changes at L5-S1. No acute fracture. Spinal cord: The conus is normal size, shape and signal characteristics, terminate T12-L1 No abnormal enhancement. Soft tissues: Advanced atrophy of the iliopsoas, paraspinous intraspinous musculature. The aorta and IVC flow voids are intact. The visualized kidneys are unremarkable. DISCS/SPINAL CANAL/NEURAL FORAMINA: L1-L2: Unremarkable. No significant disc disease. No stenosis. L2-L3: Unremarkable. No significant disc disease. No stenosis. L3-L4: There is mild disc degeneration with annular disc bulge causing a mild subarticular recess stenosis with disc extending into the neural foramina without some impingement or significant stenosis. L4-L5: Moderate disc degeneration with annular disc bulge causing a mild right and moderate left subarticular recess stenosis with mild impingement of the transiting left L5 nerve root. There is disc and osteophyte extending to the neural foramina causing a moderate right and moderately severe left stenosis with impingement of the bilateral L4 nerve or ganglia. L5-S1: Advanced disc degeneration with disc and osteophyte extending to the neural foramina causing mild bilateral neuroforaminal stenosis without evidence of neural impingement. IMPRESSION: 1. Moderate disc degeneration at L4-5 and mild disc degeneration at L3-4 with annular disc bulging causing a mild subarticular recess stenosis at L3-4 and mild right and moderate left subarticular recess stenosis at L4- 5 with mild impingement of the transiting left L5 nerve root. 2. There is no spinal canal stenosis. 3. There is moderate right and moderately severe left L4-5 and mild bilateral L5-S1 neural foraminal stenosis with impingement of the bilateral L4 nerve or ganglia. 4. No evidence of fracture, infection, tumor or arachnoiditis. Electronically signed by: Betsey Steward MD 06/25/24 01:23 AM
--- NOTE | 2024-06-25 07:36 | Hospitalist Progress Note ---
Date of Service June 25, 2024 Assessment & Plan (1) Pneumonia: Plan: -resolving - CXR showing LLL PNA vs. atelectasis - duoneb PRN, IS - continue with doxy 100mg BID (2) Type 2 diabetes mellitus: Plan: - insulin glargine 5u BID; SSI PRN (3) Chronic pain syndrome: Plan: - currently on oxycodone 20 mg q4hr PRN at home; continue home regimen while inpatient - pt stating she is in severe pain, dilaudid 0.5mg IV Q3h increased to 1mg IV Q3h pending MRI L-spine results -MRI L spine ordered (4) Hematemesis: Plan: Vomiting/hematemesis - unclear etiology; pt has hx of gastroparesis with recent admission for flare vs. nausea secondary to PNA vs. gastritis (recent EGD last admission 06/04) - s/p 2L NS in ER/on admission; encourage PO intake as able - zofran IV PRN, home compazine PRN - pantoprazole IV BID, famotidine IV BID, carafate QID - will hold aspirin and VTE ppx in the setting of hematemesis/gastritis - trend Hgb - GI consult appreciated - h/h stable, likely 2nd to esophagitis, con't PPI and carafate - no indication for endoscopy at this time (5) HTN (hypertension): Plan: HTN - continue home regimen; clonidine, hydralazine, lisinopril, metoprolol, and nifedipine -Hydralizine 10mg IV Qhrs prn Plan MRI L-spine has issues in lumbar area not in correlation with clincal pain distribution Admission and Anticipated Discharge Date Admission Date: June 20, 2024 Subjective Pt continues to complain of intractable back pain 05/22 that radiates from her mid thoracic spine to her shoulders. She is crying and very upset, stating that she cannot live with the pain. We discussed palliative care although I do not think she will agree she says she is open to discuss this with the palliative care provider. MRI scan performed on the does show some herniated disks but these are all in the L3-L5 distribution and she has no description of pain and that neuro logical dermatome Physical Exam Physical Exam: Patient is awake she appears to be in no distress but upon discussion she becomes more reporting of pain and discomfort. Pain is midthoracic is not reproducible about the spine she claims it radiates muscularly up to reports her head Results & Data Results & Data Vital Signs (Past 12 Hours) Vital Signs Pulse BP 06/25/24 05:12 60 133/63 PG Care Time/CCT Total # of Minutes Spent Total Time Spent with Patient: Total time spent is greater than 50% in coordination of care (as documented) at patient's floor/unit and/or counseling patient: Coding Level of Care Code 38127 SUB INP/OBS CARE 3/50MIN Diagnoses Pneumonia J18.9 Laterality: left Lung location: lower lobe of lung Pneumonia type: due to unspecified organism Type 2 diabetes mellitus E11.69; Z79.4 Diabetes mellitus complication status: with other specified complication 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
--- NOTE | 2024-06-26 14:05 | Hospitalist Progress Note ---
Date of Service June 26, 2024 Assessment & Plan (1) Chronic pain syndrome: Plan: - acute on chronic used 8 mg iv hydromorphone in last 24 hours, did not use oxycodone as she says it does not work currently on oxycodone 20 mg q4hr PRN at home; continue to offer home regimen while inpatient - pt stating she is in severe pain, dilaudid 0.5mg IV Q3h increased to 1mg IV Q3h pending MRI T-spine results -MRI t spine ordered (2) Pneumonia: Plan: -resolving - CXR showing LLL PNA vs. atelectasis - duoneb PRN, IS - continue with doxy 100mg BID (3) Type 2 diabetes mellitus: Plan: - insulin glargine 5u BID; SSI PRN (4) Hematemesis: Plan: Vomiting/hematemesis - unclear etiology; pt has hx of gastroparesis with recent admission for flare vs. nausea secondary to PNA vs. gastritis (recent EGD last admission 06/04) - - zofran IV PRN, home compazine PRN - pantoprazole IV BID, famotidine IV BID, carafate QID - will hold aspirin and VTE ppx in the setting of hematemesis/gastritis - GI consult appreciated, no indication for endoscopy at this time - h/h stable, likely 2nd to esophagitis, con't PPI and carafate - (5) HTN (hypertension): Plan: HTN - continue home regimen; clonidine, hydralazine, lisinopril, metoprolol, and nifedipine -Hydralizine 10mg IV Qhrs prn Plan palliative care consult, discuss goals of care and manage pain. Admission and Anticipated Discharge Date Admission Date: June 20, 2024 Subjective Pt continues to complain of intractable back pain / that radiates from her mid thoracic spine to her shoulders. She is crying and very upset, stating that she cannot live with the pain. We discussed palliative care , she is open to discuss this with the palliative care provider. MRI lumbar scan performed on the does show some herniated disks but these are all in the L3-L5 distribution and she has no description of pain and that neuro logical dermatome, since her pain is more thoracic will also have a thoracic MRI Physical Exam Physical Exam: Patient is awake she appears to be in no distress but upon discussion she becomes more reporting of pain and discomfort. Pain is midthoracic is both central over spinous process and in the paraspinous muscles there is not radicular component to upper extremities Results & Data Results & Data Vital Signs (Past 12 Hours) Vital Signs Temp Pulse Resp BP Pulse Ox O2 Del Method 06/26/24 10:45 69 156/71 H 06/26/24 08:11 97.9 F 60 16 123/67 95 Room Air 06/26/24 05:47 98.8 F 63 18 121/66 96 Room Air PG Care Time/CCT Total # of Minutes Spent Total Time Spent with Patient: Total time spent is greater than 50% in coordination of care (as documented) at patient's floor/unit and/or counseling patient: Coding Level of Care Code 88182 SUB INP/OBS CARE 2/35MIN Diagnoses Chronic pain syndrome G89.4 Pneumonia J18.9 Laterality: left Lung location: lower lobe of lung Pneumonia type: due to unspecified organism Type 2 diabetes mellitus E11.69; Z79.4 Diabetes mellitus complication status: with other specified complication Diabetes mellitus care home insulin use: with watermaster use Hematemesis K92.0 HTN (hypertension) I10 (2) Pneumonia Laterality: left Lung location: lower lobe of lung Pneumonia type: due to unspecified organism Qualified Code(s): J18.9 - Pneumonia, unspecified organism (3) Type 2 diabetes mellitus Diabetes mellitus complication status: with other specified complication 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
--- NOTE | 2024-06-26 16:21 | Palliative Care Consultation ---
Date of Consultation June 26, 2024 Assessment & Plan (1) Abdominal pain: Pt with frequent ER visits/admissions for intractable pain after inability to take her analgesics 2/2 N/V. Recommend opiate rotation/transition to extended release opiate analgesia and compazine suppository to ensure consistency in lainez management. After lengthy discussion with pt and her spouse, she is considering opiate rotation to long acting opiate (Oxy ER vs methadone) and requests time to discuss with her spouse. Will revisit discussion 06/27/24. Encouraged BSRN to use dilaudid only for pain refractory to oxycodone, while pt able to take PO meds. Present on Admission?: Yes (2) Lumbar radiculopathy, right: continue Pregabalin and med rec as pr #1 (3) Nausea & vomiting: Transition IV to PO compazine as able. Recommend adding PRN compazine suppository to home medications. Vomiting type: unspecified Qualified Code(s): R11.2 - Nausea with vomiting, unspecified Present on Admission?: Yes (4) Counseling regarding advanced directives and goals of care: Met with pt and her spouse at bedside. They shared that they have been for over 30years and have 3 children and five grandchildren together. 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 She shared that being at home with family, being able to cook and clean her own house and care for her grandchildren are of greatest value to her. Pt reaffirmed HPI as above and shared that she is no longer nauseated with IV compazine but she continues to have intractable epigastric pain which radiates to her back. She shared that she is "tired of being sick and in pain all the time" and wants all testing done to "figure out what is wrong so I can get better and live life again". We discussed pain management options at length and benefits of opiate rotation vs transition to a longer acting opiate for more consistent pain management. We discussed possible transition to either long acting oxy or methadone for home use and I shared risks and benefits of each. Mariana shared concerns for addiction with methadone due to multiple family members having bad experiences with methadone. After long discussion, pt requ ests time to discuss options privately with her spouse. Pt agrees to revisit discussion tomorrow (06/27/24). Pt not currently agreeable to changes in pain management regime, but aware that she will not be able to go home on IV opiates. Briefly discussed importance of LW/AD, pt declines offer to assist with completion of paperwork at this time. Plan see above History of Present Illness Reason for Consultation: Assisting with GOC/pain mgmt Requesting Physician: Ashok Clemons MD Attending Physician: Ashok Clemons MD History of Present Illness Pt is a 59 yo female with extensive PMHx including vasculopathy, GERD, gastroparesis, HTN, PAD, DM, and chronic pain (on chronic opioids) presenting to the hospital d/t nausea/vomiting/abd pain. Pt presented to ED on 06/20/24 after two days of vomiting, coughing, fevers/chills and burning type pain in her ribs and upper abdominal pain. She had been unable to take any of her medications at home due to constant N/V. Of note she was recently seen by GI service fro epigastric pain, EGD on 06/04/24 [facility]-D revealed esophagitis, gastritis. Pt today reports resolution of N/V with IV compazine, but ongoing epigastric pain radiating bilaterally to thoracic spine. Allergies Allergy/AdvReac Type Severity Reaction Status Date / Time morphine Allergy Severe blisters Verified 02/10/24 22:40 in mouth Sulfa (Sulfonamide Allergy Severe rash/swelli Verified 02/10/24 22:40 Antibiotics) ng amoxicillin [From Augmentin] Allergy Intermediate itching/power Verified 02/10/24 22:40 h ceftriaxone [From Rocephin] Allergy Intermediate Hives Verified 02/10/24 22:40 clavulanic acid Allergy Intermediate itching/power Verified 02/10/24 22:40 [From Augmentin] h erythromycin base Allergy Intermediate Hives Verified 02/10/24 22:40 vancomycin Allergy Intermediate YULIYA Verified 02/10/24 22:40 SYNDROME---CAN TAKE IF VERY SLOW DRIP. adhesive AdvReac Intermediate DERMABOND Verified 02/10/24 22:40 excoriates skin gabapentin AdvReac Intermediate Nausea Verified 02/10/24 22:40 iron [From Venofer] AdvReac Intermediate Hypertensio Verified 02/10/24 22:40 n Home Medications Medication Instructions Recorded Confirmed Type insulin glargine 100 unit/mL (3 10 unit subcut HS 03/07/23 10/21/24 History mL) subcutaneous pen (Lantus Solostar U-100 Insulin) albuterol sulfate 90 mcg/actuation 2 puff inhalation QID PRN 05/08/23 06/02/24 History aerosol inhaler Shortness Of Breath Or Wheezing alprazolam 1 mg tablet 1 mg PO TID PRN Anxiety 05/08/23 06/02/24 History docusate sodium 100 mg capsule 100 mg PO BID 05/08/23 06/02/24 History metoprolol succinate 50 mg 50 mg PO QAM 05/08/23 06/02/24 History tablet,extended release 24 hr (Toprol XL) clopidogrel 75 mg tablet (Plavix) 75 mg PO DAILY #30 tabs 05/10/23 06/02/24 Rx prochlorperazine maleate 5 mg 5 mg PO TID PRN Nausea 06/13/23 06/02/24 History tablet aspirin 81 mg tablet,delayed 81 mg PO DAILY 09/19/23 06/02/24 History release hydralazine 25 mg tablet 25 mg PO TID 09/19/23 06/02/24 History nifedipine 60 mg tablet,extended 120 mg PO DAILY 09/19/23 06/02/24 History release 24 hr lidocaine 5 % topical patch 1 patch transdermal QAM #14 ea 12/13/23 06/02/24 Rx clonidine HCl 0.1 mg tablet 0.1 mg PO Q8H #90 tabs 04/03/24 06/02/24 Rx cyanocobalamin (vitamin B-12) 500 1,000 mcg (2 x 500 mcg) PO QAM #30 04/03/24 06/02/24 Rx mcg tablet tabs naloxone 4 mg/actuation nasal spray 4 mg intranasal ONCE PRN opioid 04/03/24 06/02/24 Rx overdose #2 ea polyethylene glycol 3350 17 gram 17 g PO BID #0 ea 04/03/24 06/02/24 Rx oral powder packet (Miralax) pregabalin 100 mg capsule (Lyrica) 100 mg PO TID #90 caps 04/03/24 06/02/24 Rx sennosides 8.6 mg tablet (Senokot) 17.2 mg (2 x 8.6 mg) PO BID PRN 04/03/24 06/02/24 Rx constipation #60 tabs duloxetine 60 mg capsule,delayed 60 mg PO DAILY 06/02/24 06/02/24 History release insulin aspart 5 unit subcut TIDM 06/02/24 06/02/24 History (niacinamide)(U-100) 100 unit/mL(3 mL) subcutaneous pen (Fiasp FlexTouch U-100 Insulin) lisinopril 20 mg tablet 20 mg PO DAILY 06/02/24 06/02/24 History quetiapine 50 mg tablet 50 mg PO HS 06/02/24 06/02/24 History ropinirole 4 mg tablet 8 mg PO HS 06/02/24 06/02/24 History sucralfate 100 mg/mL oral 1 g (10 mL) PO ACHS #200 mL 06/05/24 Rx suspension (Carafate) oxycodone 20 mg tablet 20 mg PO Q6H PRN pain #12 tabs 06/11/24 Rx rabeprazole 20 mg tablet,delayed 20 mg PO DAILY 8 weeks #56 tabs 06/11/24 Rx release doxycycline hyclate 100 mg capsule 100 mg PO BID #14 caps 06/23/24 Rx Patient History Medical History GERD (gastroesophageal reflux disease) Amputation of left great toe Poor venous access Hyponatremia Intractable neuropathic pain of left lower extremity Gastroparesis Leukocytosis Chronic pain Insomnia HTN (hypertension) PAD (peripheral artery disease) Hypertension Groin pain Foot pain Infection of left great toe due to methicillin resistant Staphylococcus aureus (MRSA) Diastolic CHF COVID-19 Osteomyelitis of great toe of left foot Opiate dependence Opiate abuse, continuous Acidosis, lactic Acute dehydration Gastroenteritis Sepsis Shortness of breath Opioid dependence Insomnia 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 No issues per anesthesia postop progress note. Anemia Hyponatremia Cellulitis Peripheral neuropathy Benzodiazepine withdrawal Right second toe ulcer Diabetes mellitus type 2, uncontrolled Hyperlipidemia Seizures Gastritis Numbness of lower extremity Hypertriglyceridemia CAD (coronary artery disease) History of tobacco use Benzodiazepine dependence Diabetic neuropathy Abdominal pain Gastroparesis Esophagitis determined by endoscopy GIB (gastrointestinal bleeding) Insulin dependent diabetes mellitus DM2 (diabetes mellitus, type 2) IDDM, A1c 07/2021-11% Surgical History History of lumbar fusion L5-S1 from 2005, [place] History of lumbar surgery History of esophagogastroduodenoscopy (EGD) Family History Mother , age 63 Myocardial infarction Father , age 68 or 69 Myocardial infarction Brother S/P CABG (coronary artery bypass graft) Sister Myocardial infarction x 3; she is 57yo Social History Smoking Status: Former smoker Tobacco Type: Cigarettes packs per day: 0.5; Second Hand Exposure: No; Do You Dip or Chew Tobacco: No; Tobacco Cessation Education Requested by Patient: No Hx Alcohol Use: No Hx Substance Use: Yes Prescribed Medications: Marijuana Last Used Substance: Unknown Last Used Substance Other:: Medical marijuana Substance Use Type Other:: Medical marijuana Preferred Language: [place] Leonean Communication Ability: Effective Visual Impairment: No Limitations Hearing Ability: Normal Real Estate Appraiser Supervisor Required: No Beliefs That Will Affect Care: None marital status: Current Living Situation: Spouse Current Living Situation Comment: lives at home with current occupational status: unemployed 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 Other Information That Helps Us Care for You: No other: raising a grandchild as well; lives in [place] Feels Safe at Home: Yes Safety Concerns: Feels Safe At This Time and Afraid for Self Diet: diabetic and low salt during the past year weight has: remained stable Assistive Devices: Walker and Wheelchair Review of Systems Constitutional: as per Subjective / HPI, + malaise and + weakness Eyes: PERRLA Ear, Nose, Mouth, Throat: no dizziness, no nasal congestion, no sinus pain/pressure and no sore throat Respiratory: no cough, no chest congestion and no hemoptysis Cardiovascular: no chest pain, no dyspnea at rest, no dyspnea on exertion and no palpitations Gastrointestinal: + abdominal pain (RUQ to LUQ), + heartbu rn, + nausea, + vomiting and + hematemesis; no dysphagia, no constipation and no constant urge to pass stools Genitourinary: no problem reported Musculoskeletal: + muscle weakness Integumentary: no problem reported Neurologic: no problem reported Physical Exam Constitutional: WD/WN, vitals as above Eyes: PERRLA, EOMi ENMT: external ear and nose normal, oropharynx normal Neck: trachea midline, no thyromegaly Respiratory: normal respiratory effort, lungs clear to auscultation Cardiovascular: RRR, s1s2 Gastrointestinal (Abdomen): Inspection/Auscultation: abdomen normal to inspection and normal bowel sounds; abdomen not distended Percussion/Palpation: + abdomen tender ([place] upper quads ), + guarding and abdomen soft; no ascites Musculoskeletal: generalized weakness, no focal deficits Skin: no rashes, warm and dry Neurologic: grossly neurologically intact, no focal deficits noted Psychiatric: Orientation: alert and oriented x 3 Eye Contact: good eye contact Speech: normal rate/rhythm/volume of speech Thought Process: clear/coherent thought process Results & Data Vital Signs (Past 12 Hours) Vital Signs Temp Pulse Resp BP Pulse Ox O2 Del Method 06/26/24 10:45 69 156/71 H 06/26/24 08:11 36.6 C 60 16 123/67 95 Room Air 06/26/24 05:47 37.1 C 63 18 121/66 96 Room Air Laboratory Results Abnormal lab results 06/25/24 06/25/24 06/26/24 Range/Units 16:28 21:32 07:51 POC Glucose 132 H 142 H 131 H (70-99) mg/dl 06/26/24 Range/Units 11:42 POC Glucose 128 H (70-99) mg/dl Diagnostic Findings Chest X-Ray 06/19/24 20:42 Exam(s): XR CXR 1 VIEW EXAM: XR Chest, 1 View CLINICAL HISTORY: Sepsis. TECHNIQUE: Frontal view of the chest. COMPARISON: No relevant prior studies available. FINDINGS: Lungs: Subsegmental opacity noted involving the left lower lung zone adjacent to the diaphragm. The lungs are otherwise well-aerated. Similar reticular-nodular presumed chronic interstitial changes at the lung bases. The pulmonary vasculature is unremarkable. Pleural space: The left costophrenic margin is not included, limiting evaluation. The right costophrenic margin is sharp. No pneumothorax. Heart: The cardiac silhouette is within normal limits. Mediastinum: The mediastinal contours are unremarkable. No tracheal deviation. Bones/joints: Unremarkable. No acute fracture. IMPRESSION: Subsegmental opacity noted involving the left lower lung zone adjacent to the diaphragm. This may represent atelectasis or pneumonia. Electronically signed by: Morro Owens MD 06/19/24 23:27 PM Lumbar Spine MRI 06/24/24 13:21 Exam(s): MRI L SPINE W/WO Contrast IV Amt: 6cc gadavist EXAM: MR Lumbar Spine Without and With Intravenous Contrast CLINICAL HISTORY: Reason for exam: back pain. TECHNIQUE: Magnetic resonance images of the lumbar spine without and with intravenous contrast in multiple planes. CONTRAST: Patient received 6cc gadavist of IV contrast COMPARISON: Prior MRI of the lumbar spine from December 04, 2023. FINDINGS: This study is limited secondary to motion artifact. Vertebrae: There are 5 lumbar type vertebral bodies with a mild generalized curved to the right and normal lumbar lordosis. There is a mild grade 1 anterolisthesis of L4 and L5 measuring 3 mm. Patient is status post posterior fusion of L5 and S1 with transpedicular screws and connecting rods in place. Status post posterior decompression of S1. The bone marrow signal is heterogeneous with reactive endplate changes at L5-S1. No acute fracture. Spinal cord: The conus is normal size, shape and signal characteristics, terminate T12-L1 No abnormal enhancement. Soft tissues: Advanced atrophy of the iliopsoas, paraspinous intraspinous musculature. The aorta and IVC flow voids are intact. The visualized kidneys are unremarkable. DISCS/SPINAL CANAL/NEURAL FORAMINA: L1-L2: Unremarkable. No significant disc disease. No stenosis. L2-L3: Unremarkable. No significant disc disease. No stenosis. L3-L4: There is mild disc degeneration with annular disc bulge causing a mild subarticular recess stenosis with disc extending into the neural foramina without some impingement or significant stenosis. L4-L5: Moderate disc degeneration with annular disc bulge causing a mild right and moderate left subarticular recess stenosis with mild impingement of the transiting left L5 nerve root. There is disc and osteophyte extending to the neural foramina causing a moderate right and moderately severe left stenosis with impingement of the bilateral L4 nerve or ganglia. L5-S1: Advanced disc degeneration with disc and osteophyte extending to the neural foramina causing mild bilateral neuroforaminal stenosis without evidence of neural impingement. IMPRESSION: 1. Moderate disc degeneration at L4-5 and mild disc degeneration at L3-4 with annular disc bulging causing a mild subarticular recess stenosis at L3-4 and mild right and moderate left subarticular recess stenosis at L4- 5 with mild impingement of the transiting left L5 nerve root. 2. There is no spinal canal stenosis. 3. There is moderate right and moderately severe left L4-5 and mild bilateral L5-S1 neural foraminal stenosis with impingement of the bilateral L4 nerve or ganglia. 4. No evidence of fracture, infection, tumor or arachnoiditis. Electronically signed by: Betsey Steward MD 06/25/24 01:23 AM Medications Administered Current Inpatient Medications Acetaminophen (Acetaminophen 325 Mg Tab) 650 mg PO Q4H PRN PRN Reason: pain/fever Stop: 07/20/24 00:39 Last Admin: 06/24/24 11:08 Dose: 650 mg Albuterol (Albut/Ipratrop 3mg/0.5mg Neb 3 Ml Vial) 3 ml NEB Q6R PRN; Protocol PRN Reason: Shortness Of Breath Or Wheezing Stop: 07/20/24 02:31 Last Admin: 06/20/24 15:04 Dose: 3 ml Clonidine HCl (Clonidine Hcl 0.1 Mg Tab) 0.1 mg PO Q8 [facility] Stop: 07/20/24 02:31 Last Admin: 06/26/24 13:58 Dose: 0.1 mg Clopidogrel Bisulfate (Clopidogrel Bisulfate 75 Mg Tab) 75 mg PO DAILY [facility] Stop: 07/20/24 08:59 Last Admin: 06/26/24 10:48 Dose: 75 mg Cyanocobalamin (Cyanocobalamin (B-12) 500 Mcg Tablet) 1,000 mcg PO QAM [facility] Stop: 07/20/24 08:59 Last Admin: 06/26/24 10:47 Dose: 1,000 mcg Dextrose (Dextrose 50% 50 Ml Syringe) 25 - 50 ml IV UD PRN; Protocol PRN Reason: Hypoglycemia Protocol Stop: 07/20/24 01:02 Docusate Sodium (Docusate Sodium 100 Mg Cap) 100 mg PO BID [facility]ICK[facility] Stop: 07/20/24 08:59 Last Admin: 06/26/24 08:59 Dose: 100 mg Doxycycline Hyclate (Doxycycline Hyclate 100 Mg Cap) 100 mg PO BID [facility] Stop: 06/27/24 08:59 Last Admin: 06/26/24 10:48 Dose: 100 mg Duloxetine HCl (Duloxetine Hcl 60 Mg Cap) 60 mg PO DAILY [facility] Stop: 07/20/24 08:59 Last Admin: 06/26/24 10:48 Dose: 60 mg Glucagon (Glucagon For Inj 1 Mg Vial) 1 mg SQ UD PRN; Protocol PRN Reason: Hypoglycemia Protocol Stop: 07/20/24 01:02 Glucose (Glucose 40% Gel 15 Gm Tube) 15 - 30 gm PO UD PRN; Protocol PRN Reason: Hypoglycemia Protocol Stop: 07/20/24 01:02 Glucose (Glucose 10 Tab/Tube) 4 - 8 tab PO UD PRN; Protocol PRN Reason: Hypoglycemia Protocol Stop: 07/20/24 01:02 Guaifenesin/Codeine Phosphate (Guaifenesin/Codeine 100mg/10mg 5ml Udc) 5 ml PO Q6H PRN PRN Reason: Cough Stop: 07/22/24 11:24 Hydralazine HCl (Hydralazine Hcl 25 Mg Tab) 25 mg PO TID [facility] Stop: 07/20/24 08:59 Last Admin: 06/26/24 13:58 Dose: 25 mg Hydralazine HCl (Hydralazine Hcl 20 Mg/Ml Vial) 10 mg IV Q8 PRN PRN Reason: sbp>185 or dbp>95 Stop: 07/23/24 14:35 Last Admin: 06/24/24 06:29 Dose: 10 mg Hydromorphone HCl (Hydromorphone Inj 1 Mg/Ml Syringe) 1 mg IV Q3H PRN PRN Reason: Pain Stop: 07/04/24 16:15 Last Admin: 06/26/24 14:53 Dose: 1 mg Pantoprazole Sodium (Protonix) 40 mg in 10 mls @ 5 mls/min IV BID [facility] Stop: 07/20/24 08:59 Last Admin: 06/26/24 11:13 Dose: 5 mls/min Famotidine (Pepcid 20mg Iv Push) 20 mg in 5 mls @ 2.5 mls/min IV Q12H [facility] Stop: 07/20/24 08:59 Last Admin: 06/26/24 11:02 Dose: 2.5 mls/min Insulin Aspart (Insulin Aspart Per Unit Charge) 0 units SC ACHS [facility] Stop: 07/20/24 07:29 Last Admin: 06/26/24 12:42 Dose: 3 units Insulin Glargine (Lantus Per Unit Charge) 5 units SQ BID [facility] Stop: 07/20/24 08:59 Last Admin: 06/26/24 08:57 Dose: 5 units Lidocaine (Lidocaine 5% 1 Patch) 1 patch TD QAM [facility] Stop: 07/20/24 08:59 Last Admin: 06/26/24 10:48 Dose: 1 patch Lisinopril (Lisinopril 20 Mg Tab) 20 mg PO DAILY [facility] Stop: 07/20/24 08:59 Last Admin: 06/26/24 10:49 Dose: 20 mg Lorazepam (Lorazepam 2 Mg/1 Ml Vial) 0.5 mg IV ONE PRN PRN 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: 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 Stop: 07/26/24 10:31 Melatonin (Melatonin 3 Mg Tab) 3 mg PO HS PRN PRN Reason: Insomnia Stop: 07/20/24 00:39 Last Admin: 06/25/24 21:01 Dose: 3 mg Metoprolol Succinate (Metoprolol Succ 50mg Ext Rel Tab) 50 mg PO [facility] Stop: 07/20/24 08:59 Last Admin: 06/26/24 10:49 Dose: 50 mg Miscellaneous (Carbohydrates For Hypoglycemia ) 15 - 30 gm PO UD PRN PRN Reason: Hypoglycemia Protocol Stop: 07/20/24 01:02 Miscellaneous (Remove Lidoderm Patch) 1 each N/A DAILY@2100 [facility] Stop: 07/20/24 20:59 Last Admin: 06/25/24 21:02 Dose: 1 each Nifedipine (Nifedipine Extended Rel 30 Mg Tabcr) 120 mg PO [facility] Stop: 07/24/24 08:59 Last Admin: 06/26/24 10:49 Dose: 120 mg Ondansetron HCl (Ondansetron Inj 2 Mg/Ml 2 Ml Vial) 4 mg IV Q6H PRN PRN Reason: Nausea Stop: 07/20/24 00:39 Last Admin: 06/26/24 14:58 Dose: 4 mg Oxycodone HCl (Oxycodone Hcl Ir 5 Mg Tab (Immediate Release)) 20 mg PO Q4H PRN PRN Reason: Pain Stop: 07/04/24 02:31 Last Admin: 06/22/24 12:02 Dose: 20 mg Polyethylene Glycol (Polyethylene (Miralax) 17 Gm Pack) 17 gm PO BID [facility] Stop: 07/20/24 08:59 Last Admin: 06/26/24 08:59 Dose: 17 gm Pregabalin (Pregabalin 100 Mg Cap) 100 mg PO TID [facility] Stop: 07/20/24 08:59 Last Admin: 06/26/24 13:58 Dose: 100 mg Prochlorperazine (Prochlorperazine Maleate 5 Mg Tab) 5 mg PO TID PRN PRN Reason: Nausea Stop: 07/20/24 02:31 Last Admin: 06/22/24 19:37 Dose: 5 mg Quetiapine Fumarate (Quetiapine Fumarate 25 Mg Tablet) 50 mg PO HS [facility] Stop: 07/20/24 20:59 Last Admin: 06/25/24 21:02 Dose: 50 mg Ropinirole HCl (Ropinirole Hcl 2 Mg Tablet) 8 mg PO HS [facility] Stop: 07/20/24 20:59 Last Admin: 06/25/24 21:02 Dose: 8 mg Sennosides (Senna 8.6 Mg Tab) 17.2 mg PO BID PRN PRN Reason: constipation Stop: 07/20/24 02:31 Sucralfate (Sucralfate 1 Gm/10 Ml Udc) 1 gm PO ACHS [facility] Stop: 07/20/24 07:29 Last Admin: 06/26/24 12:41 Dose: 1 gm Last 2h hour OMEs: 120 Oxycodone 0mg (last dose 06/22) dilaudid 1mg prn x8 8mg x15 = 120 PG Care Time/CCT Total # of Minutes Spent Total Time Spent with Patient: Total time spent is greater than 50% in coordination of care (as documented) at patient's floor/unit and/or counseling patient: [place] [address] IN/OBS CONSULT LVL 4,60M Patient Type New History Problem Focused Exam Problem Focused Medical Decision Making High Complexity Diagnoses Abdominal pain R10.9 Lumbar radiculopathy, right M54.16 Nausea & vomiting R11.2 Vomiting type: unspecified Counseling regarding advanced directives and goals of care Z71.89
--- NOTE | 2024-06-26 16:42 | Palliative Care Consultation ---
Date of Consultation June 26, 2024 History of Present Illness Reason for Consultation: Pt is a 59 yo female with PMH of extensive vasculopathy, GERD, gastroparesis, HTN, PAD, DM, and chronic pain (on chronic opioids) presenting to the hospital d/t nausea/vomiting/abd pain. Pt presented to ED on 06/20/24 after two days of vomiting, coughing, fevers/chills and burning type pain in her ribs and upper abdominal pain. She had been unable to take any of her medications at home due to constant N/V. Of note she was recently seen by GI service fro epigastric pain, EGD revealed gastritis. Pt today reports resolution of N/V with IV compazine, but ongoing epigastric pain radiating bilaterally to thoracic spine. Palliative care has been consulted for assistance with chronic pain management. Requesting Physician: Ashok Clemons MD Attending Physician: Ashok Clemons MD History of Present Illness Pt is a 59 yo female with extensive PMHx including vasculopathy, GERD, gastroparesis, HTN, PAD, DM, and chronic pain (on chronic opioids) presenting to the hospital d/t nausea/vomiting/abd pain. Pt presented to ED on 06/20/24 after two days of vomiting, coughing, fevers/chills and burning type pain in her ribs and upper abdominal pain. She had been unable to take any of her medications at home due to constant N/V. Of note she was recently seen by GI service fro epigastric pain, EGD revealed gastritis. Pt today reports resolution of N/V with IV compazine, but ongoing epigastric pain radiating bilaterally to thoracic spine. Allergies Allergy/AdvReac Type Severity Reaction Status Date / Time morphine Allergy Severe blisters Verified 02/10/24 22:40 in mouth Sulfa (Sulfonamide Allergy Severe rash/swelli Verified 02/10/24 22:40 Antibiotics) ng amoxicillin [From Augmentin] Allergy Intermediate itching/power Verified 02/10/24 22:40 h ceftriaxone [From Rocephin] Allergy Intermediate Hives Verified 02/10/24 22:40 clavulanic acid Allergy Intermediate itching/power Verified 02/10/24 22:40 [From Augmentin] h erythromycin base Allergy Intermediate Hives Verified 02/10/24 22:40 vancomycin Allergy Intermediate YULIYA Verified 06/30/24 22:40 SYNDROME---CAN TAKE IF VERY SLOW DRIP. adhesive AdvReac Intermediate DERMABOND Verified 02/10/24 22:40 excoriates skin gabapentin AdvReac Intermediate Nausea Verified 02/10/24 22:40 iron [From Venofer] AdvReac Intermediate Hypertensio Verified 02/10/24 22:40 n Home Medications Medication Instructions Recorded Confirmed Type insulin glargine 100 unit/mL (3 10 unit subcut HS 10/17/22 06/02/24 History mL) subcutaneous pen (Lantus Solostar U-100 Insulin) albuterol sulfate 90 mcg/actuation 2 puff inhalation QID PRN 05/08/23 06/02/24 History aerosol inhaler Shortness Of Breath Or Wheezing alprazolam 1 mg tablet 1 mg PO TID PRN Anxiety 05/08/23 06/02/24 History docusate sodium 100 mg capsule 100 mg PO BID 05/08/23 06/02/24 History metoprolol succinate 50 mg 50 mg PO QAM 05/08/23 06/02/24 History tablet,extended release 24 hr (Toprol XL) clopidogrel 75 mg tablet (Plavix) 75 mg PO DAILY #30 tabs 05/10/23 06/02/24 Rx prochlorperazine maleate 5 mg 5 mg PO TID PRN Nausea 06/13/23 06/02/24 History tablet aspirin 81 mg tablet,delayed 81 mg PO DAILY 09/19/23 06/02/24 History release hydralazine 25 mg tablet 25 mg PO TID 09/19/23 06/02/24 History nifedipine 60 mg tablet,extended 120 mg PO DAILY 09/19/23 06/02/24 History release 24 hr lidocaine 5 % topical patch 1 patch transdermal QAM #14 ea 12/13/23 06/02/24 Rx clonidine HCl 0.1 mg tablet 0.1 mg PO Q8H #90 tabs 04/03/24 06/02/24 Rx cyanocobalamin (vitamin B-12) 500 1,000 mcg (2 x 500 mcg) PO QAM #30 04/03/24 06/02/24 Rx mcg tablet tabs naloxone 4 mg/actuation nasal spray 4 mg intranasal ONCE PRN opioid 04/03/24 06/02/24 Rx overdose #2 ea polyethylene glycol 3350 17 gram 17 g PO BID #0 ea 04/03/24 06/02/24 Rx oral powder packet (Miralax) pregabalin 100 mg capsule (Lyrica) 100 mg PO TID #90 caps 04/03/24 06/02/24 Rx sennosides 8.6 mg tablet (Senokot) 17.2 mg (2 x 8.6 mg) PO BID PRN 04/03/24 06/02/24 Rx constipation #60 tabs duloxetine 60 mg capsule,delayed 60 mg PO DAILY 06/02/24 06/02/24 History release insulin aspart 5 unit subcut TIDM 06/02/24 06/02/24 History (niacinamide)(U-100) 100 unit/mL(3 mL) subcutaneous pen (Fiasp FlexTouch U-100 Insulin) lisinopril 20 mg tablet 20 mg PO DAILY 06/02/24 06/02/24 History quetiapine 50 mg tablet 50 mg PO HS 06/02/24 06/02/24 History ropinirole 4 mg tablet 8 mg PO HS 06/02/24 06/02/24 History sucralfate 100 mg/mL oral 1 g (10 mL) PO ACHS #200 mL 06/05/24 Rx suspension (Carafate) oxycodone 20 mg tablet 20 mg PO Q6H PRN pain #12 tabs 06/11/24 Rx rabeprazole 20 mg tablet,delayed 20 mg PO DAILY 8 weeks #56 tabs 06/11/24 Rx release doxycycline hyclate 100 mg capsule 100 mg PO BID #14 caps 06/23/24 Rx Patient History Medical History Hypertension Groin pain Foot pain Infection of left great toe due to methicillin resistant Staphylococcus aureus (MRSA) Diastolic CHF COVID-19 Osteomyelitis of great toe of left foot Opiate dependence Opiate abuse, continuous Acidosis, lactic Acute dehydration Gastroenteritis Sepsis Shortness of breath Opioid dependence Hypomagnesemia Insomnia 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 No issues per anesthesia postop progress note. Anemia Hyponatremia Cellulitis Peripheral neuropathy Benzodiazepine withdrawal Right second toe ulcer Diabetes mellitus type 2, uncontrolled Hyperlipidemia Seizures Gastritis Numbness of lower extremity Hypertriglyceridemia CAD (coronary artery disease) History of tobacco use Benzodiazepine dependence Diabetic neuropathy Abdominal pain Gastroparesis Esophagitis determined by endoscopy GIB (gastrointestinal bleeding) Insulin dependent diabetes mellitus DM2 (diabetes mellitus, type 2) IDDM, A1c 07/2021-11% Surgical History History of right below knee amputation (12/22/21) Right Below Knee Amputation(Right) - Davon Good MD, FACS History of lumbar surgery History of esophagogastroduodenoscopy (EGD) Family History Mother , age 63 Myocardial infarction Father , age 68 or 69 Myocardial infarction Brother S/P CABG (coronary artery bypass graft) Sister Myocardial infarction x 3; she is 57yo Social History Smoking Status: Former smoker Tobacco Type: Cigarettes packs per day: 0.5; Second Hand Exposure: No; Do You Dip or Chew Tobacco: No; Tobacco Cessation Education Requested by Patient: No Hx Alcohol Use: No Hx Substance Use: Yes Prescribed Medications: Marijuana Last Used Substance: Unknown Last Used Substance Other:: Medical marijuana Substance Use Type Other:: Medical marijuana Preferred Language: Indonesian Communication Ability: Effective Visual Impairment: No Limitations Hearing Ability: Normal Roller Leveler Required: No Beliefs That Will Affect Care: None marital status: Current Living Situation: Spouse Current Living Situation Comment: lives at home with current occupational status: unemployed 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 Other Information That Helps Us Care for You: No other: raising a grandchild as well; lives in [place] Feels Safe at Home: Yes Safety Concerns: Feels Safe At This Time and Afraid for Self Diet: diabetic and low salt during the past year weight has: remained stable Assistive Devices: Walker and Wheelchair Results & Data Vital Signs (Past 12 Hours) Vital Signs Temp Pulse Resp BP Pulse Ox O2 Del Method 06/26/24 15:58 36.6 C 66 18 153/70 H 90 Room Air 06/26/24 10:45 69 156/71 H 06/26/24 08:11 36.6 C 60 16 123/67 95 Room Air 06/26/24 05:47 37.1 C 63 18 121/66 96 Room Air PG Care Time/CCT Total # of Minutes Spent Total Time Spent with Patient: Total time spent is greater than 50% in coordination of care (as documented) at patient's floor/unit and/or counseling patient: Coding
--- NOTE | 2024-06-27 09:57 | Palliative Care Progress Note ---
Date of Service June 27, 2024 Assessment & Plan Admission and Anticipated Discharge Date Admission Date: June 20, 2024 Review of Systems Constitutional: as per Subjective / HPI, + malaise and + weakness Eyes: PERRLA Ear, Nose, Mouth, Throat: no dizziness, no nasal congestion, no sinus pain/pressure and no sore throat Respiratory: no cough, no chest congestion and no hemoptysis Cardiovascular: no chest pain, no dyspnea at rest, no dyspnea on exertion and no palpitations Gastrointestinal: + abdominal pain (RUQ to LUQ), + heartbu rn, + nausea, + vomiting and + hematemesis; no dysphagia, no constipation and no constant urge to pass stools Genitourinary: no problem reported Musculoskeletal: + muscle weakness Integumentary: no problem reported Neurologic: no problem reported Physical Exam Constitutional: WD/WN, vitals as above Eyes: PERRLA, EOMi ENMT: external ear and nose normal, oropharynx normal Neck: trachea midline, no thyromegaly Respiratory: normal respiratory effort, lungs clear to auscultation Cardiovascular: RRR, s1s2 Gastrointestinal (Abdomen): Inspection/Auscultation: abdomen normal to inspection and normal bowel sounds; abdomen not distended Percussion/Palpation: + abdomen tender ([place] upper quads ), + guarding and abdomen soft; no ascites Musculoskeletal: generalized weakness, no focal deficits Skin: no rashes, warm and dry Neurologic: grossly neurologically intact, no focal deficits noted Psychiatric: Orientation: alert and oriented x 3 Eye Contact: good eye contact Speech: normal rate/rhythm/volume of speech Thought Process: clear/coherent thought process Results & Data Vital Signs (Past 12 Hours) Vital Signs Temp Pulse Resp BP BP Pulse Ox O2 Del Method 06/27/24 07:56 36.4 C L 62 17 134/74 99 Room Air 06/27/24 07:50 36.9 C 80 18 162/88 H 95 Room Air 06/27/24 06:36 170/71 H Laboratory Results Abnormal lab results 06/26/24 06/26/24 06/26/24 Range/Units 11:42 16:44 20:49 POC Glucose 128 H 118 H 125 H (70-99) mg/dl 06/27/24 Range/Units 07:54 POC Glucose 124 H (70-99) mg/dl Diagnostic Findings Chest X-Ray 06/19/24 20:42 Exam(s): XR CXR 1 VIEW EXAM: XR Chest, 1 View CLINICAL HISTORY: Sepsis. TECHNIQUE: Frontal view of the chest. COMPARISON: No relevant prior studies available. FINDINGS: Lungs: Subsegmental opacity noted involving the left lower lung zone adjacent to the diaphragm. The lungs are otherwise well-aerated. Similar reticular-nodular presumed chronic interstitial changes at the lung bases. The pulmonary vasculature is unremarkable. Pleural space: The left costophrenic margin is not included, limiting evaluation. The right costophrenic margin is sharp. No pneumothorax. Heart: The cardiac silhouette is within normal limits. Mediastinum: The mediastinal contours are unremarkable. No tracheal deviation. Bones/joints: Unremarkable. No acute fracture. IMPRESSION: Subsegmental opacity noted involving the left lower lung zone adjacent to the diaphragm. This may represent atelectasis or pneumonia. Electronically signed by: Morro Owens MD 06/19/24 23:27 PM Lumbar Spine MRI 06/24/24 13:21 Exam(s): MRI L SPINE W/WO Contrast IV Amt: 6cc gadavist EXAM: MR Lumbar Spine Without and With Intravenous Contrast CLINICAL HISTORY: Reason for exam: back pain. TECHNIQUE: Magnetic resonance images of the lumbar spine without and with intravenous contrast in multiple planes. CONTRAST: Patient received 6cc gadavist of IV contrast COMPARISON: Prior MRI of the lumbar spine from December 04, 2023. FINDINGS: This study is limited secondary to motion artifact. Vertebrae: There are 5 lumbar type vertebral bodies with a mild generalized curved to the right and normal lumbar lordosis. There is a mild grade 1 anterolisthesis of L4 and L5 measuring 3 mm. Patient is status post posterior fusion of L5 and S1 with transpedicular screws and connecting rods in place. Status post posterior decompression of S1. The bone marrow signal is heterogeneous with reactive endplate changes at L5-S1. No acute fracture. Spinal cord: The conus is normal size, shape and signal characteristics, terminate T12-L1 No abnormal enhancement. Soft tissues: Advanced atrophy of the iliopsoas, paraspinous intraspinous musculature. The aorta and IVC flow voids are intact. The visualized kidneys are unremarkable. DISCS/SPINAL CANAL/NEURAL FORAMINA: L1-L2: Unremarkable. No significant disc disease. No stenosis. L2-L3: Unremarkable. No significant disc disease. No stenosis. L3-L4: There is mild disc degeneration with annular disc bulge causing a mild subarticular recess stenosis with disc extending into the neural foramina without some impingement or significant stenosis. L4-L5: Moderate disc degeneration with annular disc bulge causing a mild right and moderate left subarticular recess stenosis with mild impingement of the transiting left L5 nerve root. There is disc and osteophyte extending to the neural foramina causing a moderate right and moderately severe left stenosis with impingement of the bilateral L4 nerve or ganglia. L5-S1: Advanced disc degeneration with disc and osteophyte extending to the neural foramina causing mild bilateral neuroforaminal stenosis without evidence of neural impingement. IMPRESSION: 1. Moderate disc degeneration at L4-5 and mild disc degeneration at L3-4 with annular disc bulging causing a mild subarticular recess stenosis at L3-4 and mild right and moderate left subarticular recess stenosis at L4- 5 with mild impingement of the transiting left L5 nerve root. 2. There is no spinal canal stenosis. 3. There is moderate right and moderately severe left L4-5 and mild bilateral L5-S1 neural foraminal stenosis with impingement of the bilateral L4 nerve or ganglia. 4. No evidence of fracture, infection, tumor or arachnoiditis. Electronically signed by: Betsey Steward MD 06/25/24 01:23 AM Medications Administered Last 24h hour OMEs: 35 (previous 24hr 40 OME) DILAUDID 1 mg every 3hr PRN x7 = 7MG = 35 OME OXYCODONE IR 20mg every 4hr PRN x0 (last taken 06/22/24) Other palliative medications over past 24hr - NA Home Medications Medication Instructions Recorded Confirmed Last Taken insulin glargine 100 unit/mL (3 10 unit subcut HS 10/17/22 06/02/24 02/09/24 mL) subcutaneous pen (Lantus Solostar U-100 Insulin) albuterol sulfate 90 mcg/actuation 2 puff inhalation QID PRN 05/08/23 06/02/24 12/16/23 10:40 aerosol inhaler Shortness Of Breath Or Wheezing alprazolam 1 mg tablet 1 mg PO TID PRN Anxiety 05/08/23 06/02/24 12/15/23 docusate sodium 100 mg capsule 100 mg PO BID 0906/02/24 02/09/24 metoprolol succinate 50 mg 50 mg PO QAM 05/08/23 06/02/24 02/09/24 tablet,extended release 24 hr (Toprol XL) clopidogrel 75 mg tablet (Plavix) 75 mg PO DAILY #30 tabs 05/10/23 06/02/24 02/09/24 prochlorperazine maleate 5 mg 5 mg PO TID PRN Nausea 06/13/23 06/02/24 12/16/23 10:40 tablet aspirin 81 mg tablet,delayed 81 mg PO DAILY 09/19/23 06/02/24 02/09/24 release hydralazine 25 mg tablet 25 mg PO TID 09/19/23 06/02/24 02/09/24 nifedipine 60 mg tablet,extended 120 mg PO DAILY 09/19/23 06/02/24 02/09/24 release 24 hr lidocaine 5 % topical patch 1 patch transdermal QAM #14 ea 12/13/23 06/02/24 02/09/24 clonidine HCl 0.1 mg tablet 0.1 mg PO Q8H #90 tabs 04/03/24 06/02/24 Unknown cyanocobalamin (vitamin B-12) 500 1,000 mcg (2 x 500 mcg) PO QAM #30 04/03/24 06/02/24 Unknown mcg tablet tabs naloxone 4 mg/actuation nasal spray 4 mg intranasal ONCE PRN opioid 04/03/24 06/02/24 Unknown overdose #2 ea polyethylene glycol 3350 17 gram 17 g PO BID #0 ea 04/03/24 06/02/24 Unknown oral powder packet (Miralax) pregabalin 100 mg capsule (Lyrica) 100 mg PO TID #90 caps 04/03/24 06/02/24 Unknown sennosides 8.6 mg tablet (Senokot) 17.2 mg (2 x 8.6 mg) PO BID PRN 04/03/24 06/02/24 Unknown constipation #60 tabs duloxetine 60 mg capsule,delayed 60 mg PO DAILY 06/02/24 06/02/24 Unknown release insulin aspart 5 unit subcut TIDM 06/02/24 06/02/24 Unknown (niacinamide)(U-100) 100 unit/mL(3 mL) subcutaneous pen (Fiasp FlexTouch U-100 Insulin) lisinopril 20 mg tablet 20 mg PO DAILY 06/02/24 06/02/24 Unknown quetiapine 50 mg tablet 50 mg PO HS 06/02/24 06/02/24 Unknown ropinirole 4 mg tablet 8 mg PO HS 06/02/24 06/02/24 Unknown sucralfate 100 mg/mL oral 1 g (10 mL) PO ACHS #200 mL 06/05/24 Unknown suspension (Carafate) oxycodone 20 mg tablet 20 mg PO Q6H PRN pain #12 tabs 06/11/24 Unknown rabeprazole 20 mg tablet,delayed 20 mg PO DAILY 8 weeks #56 tabs 06/11/24 Unknown release doxycycline hyclate 100 mg capsule 100 mg PO BID #14 caps 06/23/24 Unknown Active Medications Generic Name Dose Route Start Last Admin Trade Name Freq PRN Reason Stop Dose Admin Acetaminophen 650 mg 06/20/24 00:40 06/24/24 11:08 Acetaminophen 325 Mg Tab PO 07/20/24 00:39 650 mg Q4H PRN Administration pain/fever Albuterol 3 ml 06/20/24 02:32 06/20/24 15:04 Albut/Ipratrop 3mg/0.5mg Neb 3 Ml Vial NEB 07/20/24 02:31 3 ml Q6R PRN Administration Shortness Of Breath Or Wheezing Protocol Clonidine HCl 0.1 mg 06/20/24 02:32 06/27/24 06:37 Clonidine Hcl 0.1 Mg Tab PO 07/20/24 02:31 0.1 mg Q8 RICKY Administration Clopidogrel Bisulfate 75 mg 06/20/24 09:00 06/27/24 08:42 Clopidogrel Bisulfate 75 Mg Tab PO 07/20/24 08:59 75 mg DAILY RICKY Administration Cyanocobalamin 1,000 mcg 06/20/24 09:00 06/27/24 08:42 Cyanocobalamin (B-12) 500 Mcg Tablet PO 07/20/24 08:59 1,000 mcg QAM RICKY Administration Docusate Sodium 100 mg 06/20/24 09:00 06/27/24 09:09 Docusate Sodium 100 Mg Cap PO 07/20/24 08:59 100 mg BID RICKY Administration Duloxetine HCl 60 mg 06/20/24 09:00 06/27/24 08:43 Duloxetine Hcl 60 Mg Cap PO 07/20/24 08:59 60 mg DAILY RICKY Administration Hydralazine HCl 25 mg 06/20/24 09:00 06/27/24 08:43 Hydralazine Hcl 25 Mg Tab PO 07/20/24 08:59 25 mg TID RICKY Administration Hydralazine HCl 10 mg 06/23/24 14:36 06/24/24 06:29 Hydralazine Hcl 20 Mg/Ml Vial IV 07/23/24 14:35 10 mg Q8 PRN Administration sbp>185 or dbp>95 Hydromorphone HCl 1 mg 06/24/24 13:23 06/27/24 09:10 Hydromorphone Inj 1 Mg/Ml Syringe IV 07/04/24 16:15 1 mg Q3H PRN Administration Pain Pantoprazole Sodium 40 mg in 10 mls @ 5 mls/min 06/20/24 09:00 06/27/24 08:50 Protonix IV 07/20/24 08:59 5 mls/min BID RICKY Administration Famotidine 20 mg in 5 mls @ 2.5 mls/min 06/20/24 09:00 06/27/24 09:10 Pepcid 20mg Iv Push IV 07/20/24 08:59 2.5 mls/min Q12H RICKY Administration Insulin Aspart 0 units 06/20/24 07:30 06/27/24 08:56 Insulin Aspart Per Unit Charge SC 07/20/24 07:29 3 units ACHS RICKY Administration Insulin Glargine 5 units 06/20/24 09:00 06/27/24 08:56 Lantus Per Unit Charge SQ 07/20/24 08:59 5 units BID RIKCY Administration Lidocaine 1 patch 06/20/24 09:00 06/27/24 08:48 Lidocaine 5% 1 Patch TD 07/20/24 08:59 1 patch QAM RICKY Administration Lisinopril 20 mg 06/20/24 09:00 06/27/24 08:43 Lisinopril 20 Mg Tab PO 07/20/24 08:59 20 mg DAILY RICKY Administration Melatonin 3 mg 06/20/24 00:40 06/26/24 21:16 Melatonin 3 Mg Tab PO 07/20/24 00:39 3 mg HS PRN Administration Insomnia Metoprolol Succinate 50 mg 06/20/24 09:00 06/27/24 08:44 Metoprolol Succ 50mg Ext Rel Tab PO 07/20/24 08:59 50 mg QAM RICKY Administration Miscellaneous 1 each 06/20/24 21:00 06/26/24 21:16 Remove Lidoderm Patch N/A 07/20/24 20:59 1 each DAILY@2100 RICKY Administration Nifedipine 120 mg 06/24/24 09:00 06/27/24 08:44 Nifedipine Extended Rel 30 Mg Tabcr PO 07/24/24 08:59 120 mg QAM RICKY Administration Ondansetron HCl 4 mg 06/20/24 00:40 06/27/24 01:49 Ondansetron Inj 2 Mg/Ml 2 Ml Vial IV 07/20/24 00:39 4 mg Q6H PRN Administration Nausea Oxycodone HCl 20 mg 06/20/24 02:32 06/22/24 12:02 Oxycodone Hcl Ir 5 Mg Tab (Immediate Release) PO 07/04/24 02:31 20 mg Q4H PRN Administration Pain Polyethylene Glycol 17 gm 06/20/24 09:00 06/27/24 08:49 Polyethylene (Miralax) 17 Gm Pack PO 07/20/24 08:59 Not Given BID RICKY Pregabalin 100 mg 06/20/24 09:00 06/27/24 09:09 Pregabalin 100 Mg Cap PO 07/20/24 08:59 100 mg TID RICKY Administration Prochlorperazine 5 mg 06/20/24 02:32 06/22/24 19:37 Prochlorperazine Maleate 5 Mg Tab PO 07/20/24 02:31 5 mg TID PRN Administration Nausea Quetiapine Fumarate 50 mg 06/20/24 21:00 06/26/24 21:16 Quetiapine Fumarate 25 Mg Tablet PO 07/20/24 20:59 50 mg HS RICKY Administration Ropinirole HCl 8 mg 06/20/24 21:00 06/26/24 21:15 Ropinirole Hcl 2 Mg Tablet PO 07/20/24 20:59 8 mg HS RICKY Administration Sucralfate 1 gm 06/20/24 07:30 06/27/24 08:41 Sucralfate 1 Gm/10 Ml Udc PO 07/20/24 07:29 1 gm ACHS RICKY Administration PG Care Time/CCT Total # of Minutes Spent Total Time Spent with Patient: Total time spent is greater than 50% in coordination of care (as documented) at patient's floor/unit and/or counseling patient: Coding
[2024-06-27] MEDS: LORazepam 2 MG/1 ML VIAL IV PRN (10:15)
[2024-06-27] MEDS: HYDROmorphone INJ 1 MG/ML SYRINGE IV STA ×2 (11:05→19:00)
[2024-06-27] MEDS: HYDROmorphone INJ 1 MG/ML SYRINGE IV PRN ×2 (12:15→17:15)
--- NOTE | 2024-06-27 15:08 | Magnetic Resonance Report ---
MR thoracic spine wo con HISTORY: 59 years-old Female eval for occult fx or infection given back pain with clinical concern f or discitis/osteomyelitis COMPARISON: MRI lumbar spine 06/24/2024, MRI thoracic spine 12/04/2023 TECHNIQUE: Multiplanar multisequence MRI of the thoracic spine was obtained without IV contrast FINDINGS: Moderate to marked motion degradation. No fracture or subluxation. Paravertebral soft tissues are unr emarkable. 12 mm right renal T2 hyperintense lesion, likely a cyst. Mild disc space narrowing within the mid thoracic spine most pronounced at the T6-T7 and T7-T8 levels . Mild multilevel facet arthrosis. The thoracic spinal cord appears to demonstrate a normal signal in tensity but is suboptimally assessed due to the motion artifact. There is a 4 mm central central disc protrusion at T7-T8 which abuts but does not significantly deform the anterior thoracic spinal cord, unchanged. No significant central canal or neural foraminal narrowing at this level. Small broad- ba sed posterior disc bulges at T6-T7 and T9-T10 without significant central canal or neural foraminal n arrowing. IMPRESSION: 1. Motion degraded exam without acute fracture, subluxation, endplate erosion or significant bone mar row edema. 2. Mild degenerative changes of the thoracic spine, unchanged compared to the 12/04/2023 study. 3. Normal signal of the visualized thoracic spinal cord. ACT 112: Negative or not required by law. The above report was generated using voice recognition software. It may contain grammatical, syntax o r spelling errors. Electronically signed by: Puneet Howard M.D. 06/27/2024 3:07 PM
[2024-06-27] MEDS ORDERED: oxyCODONE HCL IR 5 MG TAB (IMMEDIATE RELEASE) PO PRN (16:27)
--- NOTE | 2024-06-27 16:39 | Hospitalist Progress Note ---
Date of Service June 27, 2024 Assessment & Plan (1) Chronic pain syndrome: Plan: acute on chronic pain, this pain is not mid to right upper abdomen radiating around right chest wall and right mid back, upward toward right shoulder blade. 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 - nausea persists with at least daily emesis and low oral intake - may have component of gastroparesis or narcotic bowel, added scheduled oral Compazine continue current pain medication regimen including IV hydromorphone as needed severe pain, oxycodone 20 mg oral as needed which is her home regimen encouraged her to use an oral pain medicine as it is longer lasting continue pregabalin and Cymbalta appreciate palliative care consultation, considering addition of long-acting pain medication Liliana will speak with her later tonight when he is there however she is considering it (2) Pneumonia: Plan: admission chest x-ray with left lower lobe pneumonia versus atelectasis, co mpleted course of oral doxycycline afebrile, not hypoxic, check CBC and chest x-ray (3) Type 2 diabetes mellitus: Plan: - insulin glargine 5u BID; SSI PRN - blood glucose well-controlled at this time (4) Hematemesis: Plan: Vomiting/hematemesis - zofran IV PRN, home compazine - ordered scheduled 3 times daily - pantoprazole IV BID, famotidine IV BID, carafate QID - will hold aspirin and VTE ppx in the setting of hematemesis/gastritis - GI consult appreciated, no indication for endoscopy at this time - h/h stable, likely 2nd to esophagitis, con't PPI and carafate - check CBC - (5) HTN (hypertension): Plan: HTN - continue home regimen; clonidine, hydralazine, lisinopril, metoprolol, and nifedipine -Hydralizine 10mg IV Qhrs prn Plan palliative care consult, discuss goals of care and manage pain. Admission and Anticipated Discharge Date Admission Date: June 20, 2024 Subjective continues to have severe intractable pain - bandlike in upper abdomen R>L side, radiating around R chest wall to R side of midback and upwards towards R shoulder blade Physical Exam Physical Exam: PHYSICAL EXAMINATION Last 24h vital signs reviewed, see documentation in flowsheet General: was some napping but aroused easily to voice HEENT: Normocephalic, atraumatic, pupils round and equal, sclerae anicteric, no conjunctival injection, moist mucus membranes Lungs: Normal respiratory effort. nonlabored Heart: Abdomen: Soft, nondistended. no RRG tender to palpation in epigastric and right upper quadrant around right-sided chest wall and right mid back paraspinous muscles, T-spine nontender Extremities: Warm, dry, well-perfused. No extremity edema. status post right BKA. 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, mild abrasion dorsum of left foot without erythema or drainage Neuro: Alert and oriented x 4, face symmetric, moves 4 extremities well Psych: Normal affect and behavior Results & Data Results & Data Vital Signs (Past 12 Hours) Vital Signs Temp Pulse Resp BP BP Pulse Ox O2 Del Method 06/27/24 12:28 36.9 C 78 17 148/82 H 99 Room Air 06/27/24 07:56 36.4 C L 62 17 134/74 99 Room Air 06/27/24 07:50 36.9 C 80 18 162/88 H 95 Room Air 06/27/24 07:05 Room Air 06/27/24 06:36 170/71 H PG Care Time/CCT Total # of Minutes Spent Total Time Spent with Patient: Total time spent is greater than 50% in coordination of care (as documented) at patient's floor/unit and/or counseling patient: Coding Level of Care Code 71028 SUB INP/OBS CARE 2/35MIN Diagnoses Chronic pain syndrome G89.4 Pneumonia J18.9 Laterality: left Lung location: lower lobe of lung Pneumonia type: due to unspecified organism Type 2 diabetes mellitus E11.69; Z79.4 Diabetes mellitus complication status: with other specified complication 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
[2024-06-27 16:50] LABS: Basophils # (auto) 0.05 K/uL (0.00-0.20); Basophils % (auto) 0.5 %; Eosinophils # (auto) 0.58 K/uL (0.00-0.50); Hematocrit (blood only) 32.9 % (37.0-47.0); Hemoglobin 10.3 g/dl (12.0-16.0); Immature Granulocytes # (auto) 0.02 K/uL (0.01-0.20); Immature Granulocytes % (auto) 0.2 %; Lymphocytes # (auto) 2.84 K/uL (1.20-3.40); Lymphocytes % (auto) 29.4 %; Mean Corpuscular Hemoglobin 23.8 pg (25.0-34.0); Mean Corpuscular Hgb Conc 31.3 g/dL (32.0-36.0); Mean Platelet Volume 9.8 fL (9.4-12.4); Monocytes % (auto) 9.3 %; Neutrophils # (auto) 5.26 K/uL (1.40-6.50); Neutrophils % (auto) 54.6 %; Platelet Count 296 K/uL (130-400); RDW Coefficient of Variation 16.2 % (11.5-14.5); RDW Standard Deviation 45.1 fL (36.4-46.3); Red Blood Count 4.33 M/uL (4.20-5.40); White Blood Count 9.65 K/ul (4.8-10.8)
--- NOTE | 2024-06-27 16:50 | XRay Report ---
INDICATION: Cough. Concern for pneumonia. TECHNIQUE: Frontal radiograph of the chest. COMPARISON: Radiograph from 05/18/2023. FINDINGS: The cardiomediastinal silhouette and pulmonary vasculature appear within normal limits. Patchy opacities in the lower lobes bilaterally. No pleural effusion or pneumothorax. No acute osseous abnormality evident. IMPRESSION: Findings concerning for bilateral lower lobe pneumonia. Electronically signed by Herbie Samuel 06-27-2024 4:50 PM
[2024-06-27 17:05] LABS: Albumin Globulin Ratio 1.8 (0.9-2); BUN Creatinine Ratio 24.2 (10-20); Bilirubin,Total 0.3 mg/dl (0.2-1.0); Calcium 9.4 mg/dl (8.6-10.3); Creatinine Clr Calc Pharmacy 78.3 ml/min; Globulin 2.2 gm/dl (2.5-4.0); Potassium 4.1 mmol/L (3.5-5.1); Total Protein 6.2 gm/dl (6.0-8.3)
--- NOTE | 2024-06-27 18:36 | Communication Note ---
Date of Service: June 27, 2024 CXR with bibasilar infiltrates. Admission film with L base infiltrate, but appears worse. Continued cough with purulent sputum. Could pain be pleuritic? She has numerous antibiotic allergies. Earlier had course of oral doxycycline for CAP but is frequently hospitalized and may require broader antibiotic. Procal low and WBC normal Will treat persistent pneumonia with po levofloxacin 750 mg x 5 days. QTC normal on recent EKG. Is on low dose quetiapine. Changed ondansetron to compazine prn.
[2024-06-27] MEDS: levoFLOXacin 750 MG TAB PO SCH (20:18)
[2024-06-27] MEDS ORDERED: PROCHLORPERAZINE MALEATE 5 MG TAB PO SCH (21:00)
[2024-06-28] MEDS: MELATONIN 3 MG TAB PO STA (01:52)
[2024-06-28] MEDS: PROCHLORPERAZINE 5 MG in SYRINGE 4 ML IV PRN (04:33)
--- NOTE | 2024-06-28 15:16 | Hospitalist Progress Note ---
Date of Service June 28, 2024 Assessment & Plan (1) Chronic pain syndrome: Plan: acute on chronic pain, this pain is not mid to right upper abdomen radiating around right chest wall and right mid back, upward toward right shoulder blade. 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 but current pain is not lumbar distribution - T-spine MRI completed today without findings to explain her pain syndrome, only mild degenerative changes present - she had CT abdomen and pelvis on admission notably no nephrolithiasis, status postcholecystectomy without biliary dilatation, liver and spleen appeared normal - noted to have esophagitis but current pain distribution is not typical for that - 06/27 CMP and lipase, repeat CBC, procalcitonin unrevealing - 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 - nausea persists with at least daily emesis and low oral intake - may have component of gastroparesis or narcotic bowel, changed ondansetron to Compazine as needed to prevent prolonged QTc on levofloxacin continue current pain medication regimen including IV hydromorphone as needed severe pain, oxycodone 20 mg oral as needed which is her home regimen encouraged her to use an oral pain medicine as it is longer lasting continue pregabalin and Cymbalta appreciate palliative care consultation, considering addition of long-acting pain medication Liliana will speak with her later tonight when he is there however she is considering it (2) Pneumonia: Plan: admission chest x-ray with left lower lobe pneumonia versus atelectasis, completed course of oral doxycycline. continues to feel ill and continues to have productive cough with greenish and blackish sputum. repeat chest x-ray 06/27 With new right basilar infiltrate and increased left basilar infiltrate compared to admission, per my interpretation of the chest x- ray film - afebrile, not hypoxic, and procalcitonin, WBC remains low - continues to have purulent sputum and symptomatic cough, she is at risk for gram-negative pneumonias that would not be covered by doxycycline, she has multiple antibiotic intolerances/allergies so started treatment with levofloxacin 750 mg p.o. x 7 days for pneumonia - sputum culture I wonder if her chest pain/upper abdominal pain is either pleuritic in nature or related to musculoskeletal pain from coughing. (3) Type 2 diabetes mellitus: Plan: - insulin glargine 5u BID; SSI PRN - blood glucose well-controlled at this time (4) Hematemesis: Plan: Vomiting/hematemesis - zofran IV PRN, home compazine - ordered scheduled 3 times daily - pantoprazole IV BID, famotidine IV BID, carafate QID - will hold aspirin and VTE ppx in the setting of hematemesis/gastritis - GI consult appreciated, no indication for endoscopy at this time - h/h stable, likely 2nd to esophagitis, con't PPI and carafate - remains anemic on CBC 06/27 with hemoglobin of 10.3 which is microcytic. I reviewed her previous labs and no recent iron studies. She also has been B12 deficient in the past and is on oral B12 but no recent B12 level. - Check iron panel, B12, folate in a.m. - will also check B1 because she has a lots of GI symptoms and neuropathic pain and is at risk for thiamine deficiency because of her chronically low oral intake, consider trial of empiric IV replacement while this is pending - history of vitamin C deficiency with resolution of abnormal bleeding after replacement (5) HTN (hypertension): Plan: HTN - continue home regimen; clonidine, hydralazine, lisinopril, metoprolol, and nifedipine -Hydralizine 10mg IV Qhrs prn Plan palliative care consult, discuss goals of care and manage pain. Admission and Anticipated Discharge Date Admission Date: June 20, 2024 Subjective continues to have same right upper quadrant right lower chest right back pain that is unchanged, continues to have cough productive of greenish and sometimes blackish sputum, today has right shoulder pain specifically posterior deltoid and latissimus she cannot recall pulling on bed rail but has been reaching back up overhead to turn on and off the light cord Physical Exam 2 Physical Exam: PHYSICAL EXAMINATION Last 24h vital signs reviewed, see documentation in flowsheet General: awake sitting in bed, does not look well HEENT: Normocephalic, atraumatic, pupils round and equal, sclerae anicteric, no conjunctival injection, moist mucus membranes Lungs: nonlabored, breath sounds very distant especially in bases, has cough heart: Regular no murmurs rubs or gallops Abdomen: Soft, nondistended. no RRG tender to palpation in epigastric and right upper quadrant around right-sided chest wall and right mid back unchanged. Extremities: Warm, dry, well-perfused. No extremity edema. status post right BKA. 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, mild abrasion dorsum of left foot without erythema or drainage- Unchanged. tenderness right posterior deltoid and right latissimus dorsi, right upper extremity rotator cuff strength intact but has pain with resistance Neuro: Alert and oriented x 4, face symmetric, moves 4 extremities well Psych: Normal affect and behavior Results & Data Results & Data Vital Signs (Past 12 Hours) Vital Signs Pulse BP Pulse Ox O2 Del Method 06/28/24 10:00 Room Air 06/28/24 06:21 63 153/65 H 97 Room Air Laboratory Results 06/27/24 16:33 06/27/24 16:33 Diagnostic Findings Chest X-Ray 06/27/24 16:24 INDICATION: Cough. Concern for pneumonia. TECHNIQUE: Frontal radiograph of the chest. COMPARISON: Radiograph from 05/18/2023. FINDINGS: The cardiomediastinal silhouette and pulmonary vasculature appear within normal limits. Patchy opacities in the lower lobes bilaterally. No pleural effusion or pneumothorax. No acute osseous abnormality evident. IMPRESSION: Findings concerning for bilateral lower lobe pneumonia. Electronically signed by Herbie Samuel 06-27-2024 4:50 PM PG Care Time/CCT Total # of Minutes Spent Total Time Spent with Patient: Total time spent is greater than 50% in coordination of care (as documented) at patient's floor/unit and/or counseling patient: Coding Level of Care Code 60532 SUB INP/OBS CARE 2/35MIN Diagnoses Chronic pain syndrome G89.4 Pneumonia J18.9 Laterality: left Lung location: lower lobe of lung Pneumonia type: due to unspecified organism Type 2 diabetes mellitus E11.69; Z79.4 Diabetes mellitus complication status: with other specified complication Diabetes mellitus care home insulin use: with care home use Hematemesis K92.0 HTN (hypertension) I10 (2) Pneumonia Laterality: left Lung location: lower lobe of lung Pneumonia type: due to unspecified organism Qualified Code(s): J18.9 - Pneumonia, unspecified organism (3) Type 2 diabetes mellitus Diabetes mellitus complication status: with other specified complication 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
[2024-06-28] MEDS: LORazepam 2 MG/1 ML VIAL IV PRN (20:04)
[2024-06-29 07:04] LABS: Folate (Folic Acid),Ser orPlas 11.25 ng/ml (>5.38)
[2024-06-29 07:54] LABS: Ferritin 9.6 ng/ml (8-388)
--- NOTE | 2024-06-29 15:31 | Hospitalist Progress Note ---
Date of Service June 29, 2024 Assessment & Plan (1) Chronic pain syndrome: Plan: acute on chronic pain, this pain is not mid to right upper abdomen radiating around right chest wall and right mid back, upward toward right shoulder blade. 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 but current pain is not lumbar distribution - T-spine MRI completed today without findings to explain her pain syndrome, only mild degenerative changes present - she had CT abdomen and pelvis on admission notably no nephrolithiasis, status postcholecystectomy without biliary dilatation, liver and spleen appeared normal - noted to have esophagitis but current pain distribution is not typical for that - 06/27 CMP and lipase, repeat CBC, procalcitonin unrevealing - 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 - nausea persists with at least daily emesis and low oral intake - may have component of gastroparesis or narcotic bowel, changed ondansetron to Compazine as needed to prevent prolonged QTc on levofloxacin continue current pain medication regimen including IV hydromorphone as needed severe pain, oxycodone 20 mg oral as needed which is her home regimen encouraged her to use an oral pain medicine as it is longer lasting continue pregabalin and Cymbalta appreciate palliative care consultation, considering addition of long-acting pain medication Liliana will speak with her later tonight when he is there however she is considering it No changes to above for today, continues requiring IV hydromorphone and has not been willing to try oral oxycodone thus far (2) Pneumonia: Plan: admission chest x-ray with left lower lobe pneumonia versus atelectasis, completed course of oral doxycycline. continues to feel ill and continues to have productive cough with greenish and blackish sputum. repeat chest x-ray 06/27 With new right basilar infiltrate and increased left basilar infiltrate compared to admission, per my interpretation of the chest x- ray film - afebrile, not hypoxic, and procalcitonin, WBC remains low - continues to have purulent sputum and symptomatic cough, she is at risk for gram-negative pneumonias that would not be covered by doxycycline, she has multiple antibiotic intolerances/allergies so started treatment with levofloxacin 750 mg p.o. x 7 days for pneumonia started 06/27 - sputum culture I wonder if her chest pain/upper abdominal pain is either pleuritic in nature or related to musculoskeletal pain from coughing. She did report significant amount of black sputum which occurred earlier in hospital stay, currently yellow with black flecks. Black sputum could be sign of pneumonia (anaerobic) with necrosis, necrotic lung lesion, fungal infection, inhalation of black material (smoke, pollutants), pneumoconiosis. Consider chest CT (would get CTA because of possibility of PE to explain her midback pain) (3) Type 2 diabetes mellitus: Plan: - insulin glargine 5u BID; SSI PRN - blood glucose well-controlled at this time (4) Hematemesis: Plan: Vomiting/hematemesis - zofran IV PRN, home compazine - ordered scheduled 3 times daily - pantoprazole IV BID, famotidine IV BID, carafate QID - GI consult appreciated, no indication for endoscopy at this time - this issue seems to have resolved - h/h stable, likely 2nd to esophagitis, con't PPI and carafate - remains anemic on CBC 06/27 with hemoglobin of 10.3 which is microcytic. I reviewed her previous labs and no recent iron studies. She also has been B12 deficient in the past and is on oral B12 but no recent B12 level. - iron panel B12 and folate were normal - B1 pending (GI and neuropathic symptoms) - history of vitamin C deficiency with resolution of abnormal bleeding after replacement (5) HTN (hypertension): Plan: HTN - continue home regimen; clonidine, hydralazine, lisinopril, metoprolol, and nifedipine -Hydralizine 10mg IV Qhrs prn Plan palliative care consult, discuss goals of care and manage pain. Admission and Anticipated Discharge Date Admission Date: June 20, 2024 Subjective continues to have same pain - right midback, upper abdomen R>L, remains severe coughing up a little bit of yellowish sputum with black flecks following neb reported black sputum earlier in hospital course Physical Exam Physical Exam: PHYSICAL EXAMINATION Last 24h vital signs reviewed, see documentation in flowsheet General: awake sitting in bed, does not look well HEENT: Normocephalic, atraumatic, pupils round and equal, sclerae anicteric, no conjunctival injection, moist mucus membranes Lungs: nonlabored, breath sounds very distant especially in bases, has cough heart: Regular no murmurs rubs or gallops Abdomen: Soft, nondistended. no RRG tender to palpation in epigastric and right upper quadrant around right-sided chest wall and right mid back unchanged. Extremities: Warm, dry, well-perfused. No extremity edema. status post right BKA. 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, mild abrasion dorsum of left foot without erythema or drainage- Unchanged. tenderness right posterior deltoid and right latissimus dorsi, right upper extremity rotator cuff strength intact but has pain with resistance Neuro: Alert and oriented x 4, face symmetric, moves 4 extremities well Psych: Normal affect and behavior Results & Data Results & Data Vital Signs (Past 12 Hours) Vital Signs Temp Pulse Pulse Resp BP Pulse Ox O2 Del Method 06/29/24 10:06 Room Air 06/29/24 07:55 37.1 C 72 18 143/70 H 93 Room Air 06/29/24 06:26 59 L 17 93 Room Air PG Care Time/CCT Total # of Minutes Spent Total Time Spent with Patient: Total time spent is greater than 50% in coordination of care (as documented) at patient's floor/unit and/or counseling patient: Coding Level of Care Code 86241 SUB INP/OBS CARE 2/35MIN Diagnoses Chronic pain syndrome G89.4 Pneumonia J18.9 Laterality: left Lung location: lower lobe of lung Pneumonia type: due to unspecified organism Type 2 diabetes mellitus E11.69; Z79.4 Diabetes mellitus complication status: with other specified complication 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
[2024-06-30] MEDS: ASPIRIN 81 MG ECTAB PO SCH (08:30)
[2024-06-30] MEDS: OPTIRAY 320 125ml IV ONE (10:13)
--- NOTE | 2024-06-30 11:02 | CT Scan Report ---
CT ANGIOGRAPHY OF THE CHEST, PULMONARY EMBOLUS PROTOCOL CLINICAL HISTORY: Pleuritic pain. Evaluate for pulmonary embolus. COMPARISON STUDY: Chest radiograph June 27, 2024. Chest CT October 02, 2022. TECHNIQUE: Following IV administration of 112 mL of Optiray, helical axial images of the chest were o btained utilizing the pulmonary embolus protocol. Maximal intensity projections and sagittal and cor onal reformats were viewed on an independent 3D workstation. IV contrast was administered without co mplication. Automated exposure control was utilized for the study. A dose lowering technique was ut ilized adhering to the principles of ALARA. CT DOSE: 674.59 mGy.cm FINDINGS: No pulmonary emboli are identified. There is no thoracic aortic dissection. Size of the he art is normal. There is no pericardial effusion. Advanced coronary artery calcification is again note d. There is no pneumothorax or pleural fusion. There is no consolidation to suggest pneumonia. Emphys vero is present. A 1.6 cm subpleural groundglass opacity with cystic spaces within the right lower lob e on image 125 remains unchanged. There are no fractures within the visualized bony thorax. Visualize d portions of the upper abdomen are unremarkable. IMPRESSION: 1. No pulmonary emboli identified. 2. No consolidation to suggest pneumonia. 3. Emphysema. ACT 112: Negative or not required by law. Electronically signed by: Wilver Powell M.D. 06/30/2024 11:00 AM
--- NOTE | 2024-06-30 13:03 | Hospitalist Progress Note ---
Date of Service June 30, 2024 Assessment & Plan (1) Chronic pain syndrome: Plan: acute on chronic pain, this pain is mid to right upper abdomen radiating around right chest wall and right mid back, upward toward right shoulder blade. 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 but current pain is not lumbar distribution - T-spine MRI completed today without findings to explain her pain syndrome, only mild degenerative changes present - she had CT abdomen and pelvis on admission notably no nephrolithiasis, status postcholecystectomy without biliary dilatation, liver and spleen appeared normal - noted to have esophagitis but current pain distribution is not typical for that - 06/27 CMP and lipase, repeat CBC, procalcitonin unrevealing - 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 - nausea persists with at least daily emesis and low oral intake - may have component of gastroparesis or narcotic bowel, changed ondansetron to Compazine as needed to prevent prolonged QTc on levofloxacin continue current pain medication regimen including IV hydromorphone as needed severe pain, oxycodone 20 mg oral as needed which is her home regimen encouraged her to use an oral pain medicine as it is longer lasting continue pregabalin and Cymbalta appreciate palliative care consultation, considering addition of long-acting pain medication (2) Pneumonia: Plan: admission chest x-ray with left lower lobe pneumonia versus atelectasis, completed course of oral doxycycline. continues to feel ill and continues to have productive cough with greenish and blackish sputum. repeat chest x-ray 06/27 With new right basilar infiltrate and increased left basilar infiltrate compared to admission, per my interpretation of the chest x- ray film levofloxacin 750 mg p.o. x 5 days for pneumonia, last dose tomorrow - sputum culture ordered but not submitted - CTA chest 06/30 no PE, pleural effusion or pneumonia I wonder if her chest pain/upper abdominal pain is related to musculoskeletal pain from coughing. (3) Type 2 diabetes mellitus: Plan: - insulin glargine 5u BID; SSI PRN - blood glucose well-controlled at this time (4) Hematemesis: Plan: Vomiting/hematemesis reported on admission - treated with IV PPI, IV pepcid, carafate - GI consulted did not recommend endoscopy at this time - H/H stable, resolved - stop pepcid and carafate, change PPI to po Anemia - remains anemic on CBC 06/27 with hemoglobin of 10.3 which is microcytic. I reviewed her previous labs and no recent iron studies. She also has been B12 deficient in the past and is on oral B12 but no recent B12 level. - iron panel B12 and folate were normal (5) HTN (hypertension): Plan: HTN - continue home regimen; clonidine, hydralazine, lisinopril, metoprolol, and nifedipine -Hydralizine 10mg IV Qhrs prn Plan Low oral intake chronically - B1 pending (GI and neuropathic symptoms) - history of vitamin C deficiency with resolution of abnormal bleeding after replacement DVT ppx: SCD, on ASA and plavix. Has had excessive bleeding when heparinoid added to this Admission and Anticipated Discharge Date Admission Date: June 20, 2024 Subjective had a really bad night, no sleep for three nights related to right midback pain has cough, yellow sputum unchanged Physical Exam Physical Exam: PHYSICAL EXAMINATION Last 24h vital signs reviewed, see documentation in flowsheet General: awake sitting in bed, color is better HEENT: Normocephalic, atraumatic, pupils round and equal, sclerae anicteric, no conjunctival injection, moist mucus membranes Lungs: nonlabored, clear except mild crackles R base heart: Regular no murmurs rubs or gallops Abd: nondistended Extremities: Warm, dry, well-perfused. No extremity edema. status post right BKA. 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 Neuro: Alert and oriented x 4, face symmetric, moves 4 extremities well Psych: Normal affect and behavior Results & Data Results & Data Vital Signs (Past 12 Hours) Vital Signs Temp Pulse Resp BP Pulse Ox O2 Del Method 06/30/24 11:55 36.6 C 68 16 144/70 H 95 Room Air 06/30/24 08:20 Room Air 06/30/24 07:40 36.7 C 65 16 128/72 96 Room Air PG Care Time/CCT Total # of Minutes Spent Total Time Spent with Patient: Total time spent is greater than 50% in coordination of care (as documented) at patient's floor/unit and/or counseling patient: Coding Level of Care Code 22229 SUB INP/OBS CARE 2/35MIN Diagnoses Chronic pain syndrome G89.4 Pneumonia J18.9 Laterality: left Lung location: lower lobe of lung Pneumonia type: due to unspecified organism Type 2 diabetes mellitus E11.69; Z79.4 Diabetes mellitus complication status: with other specified complication 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
--- NOTE | 2024-06-30 20:05 | Ultrasound Report ---
Exam(s): US OTHER US duplex mesenteric EXAM: US Duplex Arterial/Venous of the mesenteric vasculature CLINICAL HISTORY: Reason for exam: severe vascular dz, persistent upper abdominal johnathan. TECHNIQUE: Real-time duplex ultrasound scan of the abdomen integrating B-mode two- dimensional vascular structure, Doppler spectral analysis and color flow Doppler imaging. COMPARISON: CT 06/02/2024 FINDINGS: Aorta: K=356bp/s. Celiac artery: B=047ry/s. SMA: Xrcwni=236xx/s. Prox=*450cm/s. Dsx=572xh/s. Kddmmi=643fg/s. MARTIN not visualized due to bowel gas. Minimal plaque seen in aorta, celiac and SMA. Increased velocity in proximal SMA. IMPRESSION: 1. Markedly increased velocity within the SMA but very little plaque. Suggested 70-99% stenosis by peak systolic velocity of 450 cm/s. 2. Increased velocity within the celiac artery without visualized plaque. Suggested less than 70% stenosis by peak systolic velocity of 199 cm/s. Electronically signed by: Charlie Fleming MD 06/30/24 20:05 PM
[2024-06-30] MEDS: PANTOprazole 40 MG TAB PO SCH (21:00)
[2024-07-01] MEDS: SENNA 8.6 MG TAB PO PRN (07:54)
--- NOTE | 2024-07-01 10:42 | Palliative Care Progress Note ---
Date of Service July 01, 2024 Assessment & Plan (1) Abdominal pain: (2) Chronic pain syndrome: (3) HTN (hypertension): (4) PAD (peripheral artery disease): (5) Esophagitis determined by endoscopy: (6) History of tobacco use: (7) Neural foraminal stenosis of lumbar spine: (8) Pneumonia: Plan 59-year-old female with past medical history of insulin-dependent type 2 diabetes mellitus, peripheral arterial disease status post right BKA, essential hypertension, chronic pain syndrome on chronic opiates, grade D esophagitis from recent EGD in May 2024, gastroparesis who presented to the ED with vomiting, coughing, fever and chills and was found to have a left lower lobe pneumonia which has resolved. Admission c/b intractable abdominal pain. #Epigastric pain #Chronic pain syndrome #Recent hematemesis: Resolved Patient was seen by GI for hematemesis, EGD in May 2024 which showed grade D esophagitis GI did not recommend endoscopy, recommended treating with PPI: H&H is stable; Continue B12 supplementation Patient is on chronic opiates at home, currently with epigastric pain which is not consistent with her chronic pain and mesenteric ultrasound with stenosis in celiac and SMA. Pending CTA angio of the abdominal vessels to look for any cause of abdominal pain: Lactate normal. Pt willing to trial long acting opiate with plan to wean off IV dilaudid. Will engage CM/pharmacy for preauthorization for methadone vs oxy ER. selection of long acting opiate pending insurance approval. Medical mgmt per primary #Left lower lobe pneumonia - improved #Insulin-dependent type 2 diabetes mellitus with diabetic neuropathy A1c 7.1 (06/03/2024) #Iron deficiency anemia with superimposed B12 deficiency #Essential hypertension #Peripheral arterial disease #Nonobstructive coronary disease Admission and Anticipated Discharge Date Admission Date: June 20, 2024 Subjective pt assessed at bedside. She was awake, alert, oriented and pleasantly communicative. She shared that her nausea and pain are better managed but she is still having a difficulty sleeping because of constant pain. She is in NAD on RA. Lengthy discussion with pt today about pain mgmt and proper use of long acting opiates for chronic pain and immediate release meds for breakthrough pain. Pt complains of persistent insomnia 2/2 intractable pain. Encouraged transition to methadone or oxy ER for better, more consistent pain mgmt and continuing oxy IR for breakthrough pain. pt expressed concern for nausea. Pt willing to trial methadone, if it is covered by insurance. Review of Systems Constitutional: as per Subjective / HPI, + malaise and + weakness Eyes: PERRLA Ear, Nose, Mouth, Throat: no dizziness, no nasal congestion, no sinus pain/pressure and no sore throat Respiratory: no cough, no chest congestion and no hemoptysis Cardiovascular: no chest pain, no dyspnea at rest, no dyspnea on exertion and no palpitations Gastrointestinal: + abdominal pain (RUQ to LUQ), + heartbu rn, + nausea, + vomiting and + hematemesis; no dysphagia, no constipation and no constant urge to pass stools Genitourinary: no problem reported Musculoskeletal: + muscle weakness Integumentary: no problem reported Neurologic: no problem reported Physical Exam Constitutional: WD/WN, vitals as above Eyes: PERRLA, EOMi ENMT: external ear and nose normal, oropharynx normal Neck: trachea midline, no thyromegaly Respiratory: normal respiratory effort, lungs clear to auscultation Cardiovascular: RRR, s1s2 Gastrointestinal (Abdomen): Inspection/Auscultation: abdomen normal to inspection and normal bowel sounds; abdomen not distended Percussion/Palpation: + abdomen tender ([place] upper quads ), + guarding and abdomen soft; no ascites Musculoskeletal: generalized weakness, no focal deficits Skin: no rashes, warm and dry Neurologic: grossly neurologically intact, no focal deficits noted Psychiatric: Orientation: alert and oriented x 3 Eye Contact: good eye contact Speech: normal rate/rhythm/volume of speech Thought Process: clear/coherent thought process Results & Data Vital Signs (Past 12 Hours) Vital Signs Temp Pulse Resp BP Pulse Ox O2 Del Method 07/01/24 07:41 36.6 C 63 16 130/75 94 Room Air Laboratory Results Abnormal lab results 07/01/24 07/01/24 07/01/24 Range/Units 07:35 10:41 11:25 Hgb 10.0 L (12.0-16.0) g/dl Hct 32.3 L (37.0-47.0) % MCV 76.4 L (80.0-100.0) fL MCH 23.6 L (25.0-34.0) pg MCHC 31.0 L (32.0-36.0) g/dL RDW Std Deviation 46.5 H (36.4-46.3) fL RDW Coeff of [place] 16.7 H (11.5-14.5) % [place] # (Auto) 0.84 H (0.11-0.59) K/uL Eos # (Auto) 0.56 H (0.00-0.50) K/uL Creatinine 0.59 L (0.6-1.2) mg/dl BUN/Creatinine Ratio 33.9 H (10-20) Glucose 131 H (70-99(Fasting)) mg/dl POC Glucose 143 H 114 H (70-99) mg/dl AST 9 L (13-39) U/L 07/01/24 07/01/24 Range/Units 16:44 19:57 Hgb (12.0-16.0) g/dl Hct (37.0-47.0) % MCV (80.0-100.0) fL MCH (25.0-34.0) pg MCHC (32.0-36.0) g/dL RDW Std Deviation (36.4-46.3) fL RDW Coeff of [place] (11.5-14.5) % [place] # (Auto) (0.11-0.59) K/uL Eos # (Auto) (0.00-0.50) K/uL Creatinine (0.6-1.2) mg/dl BUN/Creatinine Ratio (10-20) Glucose (70-99(Fasting)) mg/dl POC Glucose 158 H 124 H (70-99) mg/dl AST (13-39) U/L Diagnostic Findings Lumbar Spine MRI 06/24/24 13:21 Exam(s): MRI L SPINE W/WO Contrast IV Amt: 6cc gadavist EXAM: MR Lumbar Spine Without and With Intravenous Contrast CLINICAL HISTORY: Reason for exam: back pain. TECHNIQUE: Magnetic resonance images of the lumbar spine without and with intravenous contrast in multiple planes. CONTRAST: Patient received 6cc gadavist of IV contrast COMPARISON: Prior MRI of the lumbar spine from December 04, 2023. FINDINGS: This study is limited secondary to motion artifact. Vertebrae: There are 5 lumbar type vertebral bodies with a mild generalized curved to the right and normal lumbar lordosis. There is a mild grade 1 anterolisthesis of L4 and L5 measuring 3 mm. Patient is status post posterior fusion of L5 and S1 with transpedicular screws and connecting rods in place. Status post posterior decompression of S1. The bone marrow signal is heterogeneous with reactive endplate changes at L5-S1. No acute fracture. Spinal cord: The conus is normal size, shape and signal characteristics, terminate T12-L1 No abnormal enhancement. Soft tissues: Advanced atrophy of the iliopsoas, paraspinous intraspinous musculature. The aorta and IVC flow voids are intact. The visualized kidneys are unremarkable. DISCS/SPINAL CANAL/NEURAL FORAMINA: L1-L2: Unremarkable. No significant disc disease. No stenosis. L2-L3: Unremarkable. No significant disc disease. No stenosis. L3-L4: There is mild disc degeneration with annular disc bulge causing a mild subarticular recess stenosis with disc extending into the neural foramina without some impingement or significant stenosis. L4-L5: Moderate disc degeneration with annular disc bulge causing a mild right and moderate left subarticular recess stenosis with mild impingement of the transiting left L5 nerve root. There is disc and osteophyte extending to the neural foramina causing a moderate right and moderately severe left stenosis with impingement of the bilateral L4 nerve or ganglia. L5-S1: Advanced disc degeneration with disc and osteophyte extending to the neural foramina causing mild bilateral neuroforaminal stenosis without evidence of neural impingement. IMPRESSION: 1. Moderate disc degeneration at L4-5 and mild disc degeneration at L3-4 with annular disc bulging causing a mild subarticular recess stenosis at L3-4 and mild right and moderate left subarticular recess stenosis at L4- 5 with mild impingement of the transiting left L5 nerve root. 2. There is no spinal canal stenosis. 3. There is moderate right and moderately severe left L4-5 and mild bilateral L5-S1 neural foraminal stenosis with impingement of the bilateral L4 nerve or ganglia. 4. No evidence of fracture, infection, tumor or arachnoiditis. Electronically signed by: Betsey Steward MD 06/25/24 01:23 AM Thoracic Spine MRI 06/27/24 10:32 MR thoracic spine wo con HISTORY: 59 years-old Female eval for occult fx or infection given back pain with clinical concern for discitis/osteomyelitis COMPARISON: MRI lumbar spine 06/24/2024, MRI thoracic spine 12/04/2023 TECHNIQUE: Multiplanar multisequence MRI of the thoracic spine was obtained without IV contrast FINDINGS: Moderate to marked motion degradation. No fracture or subluxation. Paravertebral soft tissues are unremarkable. 12 mm right renal T2 hyperintense lesion, likely a cyst. Mild disc space narrowing within the mid thoracic spine most pronounced at the T6-T7 and T7-T8 levels. Mild multilevel facet arthrosis. The thoracic spinal cord appears to demonstrate a normal signal intensity but is suboptimally assessed due to the motion artifact. There is a 4 mm central central disc protrusion at T7-T8 which abuts but does not significantly deform the anterior thoracic spinal cord, unchanged. No significant central canal or neural foraminal narrowing at this level. Small broad- based posterior disc bulges at T6-T7 and T9-T10 without significant central canal or neural foraminal narrowing. IMPRESSION: 1. Motion degraded exam without acute fracture, subluxation, endplate erosion or significant bone marrow edema. 2. Mild degenerative changes of the thoracic spine, unchanged compared to the 12/04/2023 study. 3. Normal signal of the visualized thoracic spinal cord. ACT 112: Negative or not required by law. The above report was generated using voice recognition software. It may contain grammatical, syntax or spelling errors. Electronically signed by: Puneet Howard M.D. 06/27/2024 3:07 PM Chest X-Ray 06/27/24 16:24 INDICATION: Cough. Concern for pneumonia. TECHNIQUE: Frontal radiograph of the chest. COMPARISON: Radiograph from 05/18/2023. FINDINGS: The cardiomediastinal silhouette and pulmonary vasculature appear within normal limits. Patchy opacities in the lower lobes bilaterally. No pleural effusion or pneumothorax. No acute osseous abnormality evident. IMPRESSION: Findings concerning for bilateral lower lobe pneumonia. Electronically signed by Herbie Samuel 06-27-2024 4:50 PM Chest CTA 06/30/24 08:23 CT ANGIOGRAPHY OF THE CHEST, PULMONARY EMBOLUS PROTOCOL CLINICAL HISTORY: Pleuritic pain. Evaluate for pulmonary embolus. COMPARISON STUDY: Chest radiograph June 27, 2024. Chest CT October 02, 2022. TECHNIQUE: Following IV administration of 112 mL of Optiray, helical axial images of the chest were obtained utilizing the pulmonary embolus protocol. Maximal intensity projections and sagittal and coronal reformats were viewed on an independent 3D workstation. IV contrast was administered without complication. Automated exposure control was utilized for the study. A dose lowering technique was utilized adhering to the principles of ALARA. CT DOSE: 674.59 mGy.cm FINDINGS: No pulmonary emboli are identified. There is no thoracic aortic dissection. Size of the heart is normal. There is no pericardial effusion. Advanced coronary artery calcification is again noted. There is no pneumothorax or pleural fusion. There is no consolidation to suggest pneumonia. Emphysema is present. A 1.6 cm subpleural groundglass opacity with cystic spaces within the right lower lobe on image 125 remains unchanged. There are no fractures within the visualized bony thorax. Visualized portions of the upper abdomen are unremarkable. IMPRESSION: 1. No pulmonary emboli identified. 2. No consolidation to suggest pneumonia. 3. Emphysema. ACT 112: Negative or not required by law. Electronically signed by: Wilver Powell M.D. 06/30/2024 11:00 AM Mesenteric US 06/30/24 14:11 Exam(s): US OTHER US duplex mesenteric EXAM: US Duplex Arterial/Venous of the mesenteric vasculature CLINICAL HISTORY: Reason for exam: severe vascular dz, persistent upper abdominal johnathan. TECHNIQUE: Real-time duplex ultrasound scan of the abdomen integrating B-mode two- dimensional vascular structure, Doppler spectral analysis and color flow Doppler imaging. COMPARISON: CT 06/02/2024 FINDINGS: Aorta: N=936qy/s. Celiac artery: G=800si/s. SMA: Dyspyn=962wu/s. Prox=*450cm/s. Guh=435yf/s. Uxiqwt=826up/s. MARTIN not visualized due to bowel gas. Minimal plaque seen in aorta, celiac and SMA. Increased velocity in proximal SMA. IMPRESSION: 1. Markedly increased velocity within the SMA but very little plaque. Suggested 70-99% stenosis by peak systolic velocity of 450 cm/s. 2. Increased velocity within the celiac artery without visualized plaque. Suggested less than 70% stenosis by peak systolic velocity of 199 cm/s. Electronically signed by: Charlie Fleming MD 06/30/24 20:05 PM Medications Administered Last 24h hour OMEs: 120 Oxycodone 0mg (last dose 06/22) dilaudid 1mg prn x8 8mg = 120 Current Inpatient Medications Acetaminophen (Acetaminophen 325 Mg Tab) 650 mg PO Q4H PRN PRN Reason: pain/fever Stop: 07/20/24 00:39 Last Admin: 06/24/24 11:08 Dose: 650 mg Albuterol (Albut/Ipratrop 3mg/0.5mg Neb 3 Ml Vial) 3 ml NEB Q6R PRN; Protocol PRN Reason: Shortness Of Breath Or Wheezing Stop: 07/20/24 02:31 Last Admin: 06/29/24 06:26 Dose: 3 ml Aspirin (Aspirin 81 Mg Ectab) 81 mg PO QAM RICKY Stop: 07/30/24 08:59 Last Admin: 07/01/24 07:57 Dose: 81 mg Clonidine HCl (Clonidine Hcl 0.1 Mg Tab) 0.1 mg PO Q8 RICKY Stop: 07/20/24 02:31 Last Admin: 07/01/24 06:18 Dose: 0.1 mg Clopidogrel Bisulfate (Clopidogrel Bisulfate 75 Mg Tab) 75 mg PO DAILY RICKY Stop: 07/20/24 08:59 Last Admin: 07/01/24 07:55 Dose: 75 mg Cyanocobalamin (Cyanocobalamin (B-12) 500 Mcg Tablet) 1,000 mcg PO QAM RICKY Stop: 07/20/24 08:59 Last Admin: 07/01/24 07:56 Dose: 1,000 mcg Dextrose (Dextrose 50% 50 Ml Syringe) 25 - 50 ml IV UD PRN; Protocol PRN Reason: Hypoglycemia Protocol Stop: 07/20/24 01:02 Docusate Sodium (Docusate Sodium 100 Mg Cap) 100 mg PO BID [facility] Stop: 07/20/24 08:59 Last Admin: 07/01/24 07:54 Dose: 100 mg Duloxetine HCl (Duloxetine Hcl 60 Mg Cap) 60 mg PO DAILY RICKY Stop: 07/20/24 08:59 Last Admin: 07/01/24 07:56 Dose: 60 mg Glucagon (Glucagon For Inj 1 Mg Vial) 1 mg SQ UD PRN; Protocol PRN Reason: Hypoglycemia Protocol Stop: 07/20/24 01:02 Glucose (Glucose 40% Gel 15 Gm Tube) 15 - 30 gm PO UD PRN; Protocol PRN Reason: Hypoglycemia Protocol Stop: 07/20/24 01:02 Glucose (Glucose 10 Tab/Tube) 4 - 8 tab PO UD PRN; Protocol PRN Reason: Hypoglycemia Protocol Stop: 07/20/24 01:02 Guaifenesin/Codeine Phosphate (Guaifenesin/Codeine 100mg/10mg 5ml Udc) 5 ml PO Q6H PRN PRN Reason: Cough Stop: 07/22/24 11:24 Hydralazine HCl (Hydralazine Hcl 25 Mg Tab) 25 mg PO TID [facility] Stop: 07/20/24 08:59 Last Admin: 07/01/24 07:55 Dose: 25 mg Hydralazine HCl (Hydralazine Hcl 20 Mg/Ml Vial) 10 mg IV Q8 PRN PRN Reason: sbp>185 or dbp>95 Stop: 07/23/24 14:35 Last Admin: 06/24/24 06:29 Dose: 10 mg Hydromorphone HCl (Hydromorphone Inj 1 Mg/Ml Syringe) 1 mg IV Q3H PRN PRN Reason: Severe Pain (Scale 7, 8, 9,10) Stop: 07/04/24 16:15 Last Admin: 07/01/24 09:26 Dose: 1 mg Prochlorperazine 5 mg/ Syringe 5 mls @ 5 mls/min IV Q6H PRN PRN Reason: Nausea And Vomiting Stop: 07/27/24 18:30 Last Admin: 07/01/24 08:30 Dose: 5 mls/min Insulin Aspart (Insulin Aspart Per Unit Charge) 0 units SC ACHS [facility] Stop: 07/20/24 07:29 Last Admin: 07/01/24 08:23 Dose: 2 units Insulin Glargine (Lantus Per Unit Charge) 5 units SQ BID [facility] Stop: 07/20/24 08:59 Last Admin: 07/01/24 08:25 Dose: 5 units Levofloxacin (Levofloxacin 750 Mg Tab) 750 mg PO DAILY@1100 RICKY; Protocol Stop: 07/01/24 11:01 Last Admin: 07/01/24 07:56 Dose: 750 mg Lidocaine (Lidocaine 5% 1 Patch) 1 patch TD QAM [facility] Stop: 07/20/24 08:59 Last Admin: 07/01/24 07:58 Dose: 1 patch Lisinopril (Lisinopril 20 Mg Tab) 20 mg PO DAILY [facility] Stop: 07/20/24 08:59 Last Admin: 07/01/24 07:55 Dose: 20 mg Melatonin (Melatonin 3 Mg Tab) 3 mg PO HS PRN PRN Reason: Insomnia Stop: 07/20/24 00:39 Last Admin: 06/30/24 20:52 Dose: 3 mg Metoprolol Succinate (Metoprolol Succ 50mg Ext Rel Tab) 50 mg PO QAM [facility] Stop: 07/20/24 08:59 Last Admin: 07/01/24 07:57 Dose: 50 mg Miscellaneous (Carbohydrates For Hypoglycemia ) 15 - 30 gm PO UD PRN PRN Reason: Hypoglycemia Protocol Stop: 07/20/24 01:02 Miscellaneous (Remove Lidoderm Patch) 1 each N/A DAILY@2100 [facility] Stop: 07/20/24 20:59 Last Admin: 06/30/24 20:56 Dose: 1 each Nifedipine (Nifedipine Extended Rel 30 Mg Tabcr) 120 mg PO QAM [facility] Stop: 07/24/24 08:59 Last Admin: 07/01/24 07:55 Dose: 120 mg Oxycodone HCl (Oxycodone Hcl Ir 5 Mg Tab (Immediate Release)) 20 mg PO Q4H PRN PRN Reason: Moderate Pain (Scale 4, 5, 6) Stop: 07/04/24 02:31 Pantoprazole Sodium (Pantoprazole 40 Mg Tab) 40 mg PO BID [facility] Stop: 07/30/24 20:59 Last Admin: 07/01/24 07:58 Dose: 40 mg Polyethylene Glycol (Polyethylene (Miralax) 17 Gm Pack) 17 gm PO BID [facility] Stop: 07/20/24 08:59 Last Admin: 07/01/24 07:58 Dose: 17 gm Pregabalin (Pregabalin 100 Mg Cap) 100 mg PO TID [facility] Stop: 07/20/24 08:59 Last Admin: 07/01/24 07:54 Dose: 100 mg Quetiapine Fumarate (Quetiapine Fumarate 25 Mg Tablet) 50 mg PO HS [facility] Stop: 07/20/24 20:59 Last Admin: 06/30/24 20:59 Dose: 50 mg Ropinirole HCl (Ropinirole Hcl 2 Mg Tablet) 8 mg PO HS [facility] Stop: 07/20/24 20:59 Last Admin: 06/30/24 20:57 Dose: 8 mg Sennosides (Senna 8.6 Mg Tab) 17.2 mg PO BID PRN PRN Reason: constipation Stop: 07/20/24 02:31 Last Admin: 07/01/24 07:54 Dose: 17.2 mg PG Care Time/CCT Total # of Minutes Spent Total Time Spent with Patient: Total time spent is greater than 50% in coordination of care (as documented) at patient's floor/unit and/or counseling patient: C[place] [address] SUB INP/OBS CARE 2/35MIN Patient Type Established History Problem Focused Exam Problem Focused Medical Decision Making High Complexity Diagnoses Abdominal pain R10.9 Chronic pain syndrome G89.4 HTN (hypertension) I10 PAD (peripheral artery disease) I73.9 Esophagitis determined by endoscopy K20.90 History of tobacco use Z87.891 Neural foraminal stenosis of lumbar spine M48.061 Pneumonia J18.9 Laterality: left Lung location: lower lobe of lung Pneumonia type: due to unspecified organism (8) Pneumonia Laterality: left Lung location: lower lobe of lung Pneumonia type: due to unspecified organism Qualified Code(s): J18.9 - Pneumonia, unspecified organism
[2024-07-01 11:16] LABS: Basophils # (auto) 0.06 K/uL (0.00-0.20); Basophils % (auto) 0.7 %; Eosinophils # (auto) 0.56 K/uL (0.00-0.50); Eosinophils % (auto) 6.3 %; Hematocrit (blood only) 32.3 % (37.0-47.0); Immature Granulocytes # (auto) 0.03 K/uL (0.01-0.20); Immature Granulocytes % (auto) 0.3 %; Lymphocytes # (auto) 2.16 K/uL (1.20-3.40); Lymphocytes % (auto) 24.4 %; Mean Corpuscular Hemoglobin 23.6 pg (25.0-34.0); Mean Corpuscular Volume 76.4 fL (80.0-100.0); Mean Platelet Volume 10.4 fL (9.4-12.4); Monocytes # (auto) 0.84 K/uL (0.11-0.59); Monocytes % (auto) 9.5 %; Neutrophils # (auto) 5.19 K/uL (1.40-6.50); Neutrophils % (auto) 58.8 %; Nucleated RBC # (auto) 0.02 K/uL (0.00-0.12); Nucleated RBC % (auto) 0.2 %; Ovalocytes 1+; Platelet Count 228 K/uL (130-400); Platelet Estimate Normal (Normal); Polychromasia 2+; RDW Coefficient of Variation 16.7 % (11.5-14.5); RDW Standard Deviation 46.5 fL (36.4-46.3); Red Blood Count 4.23 M/uL (4.20-5.40); White Blood Count 8.84 K/ul (4.8-10.8)
[2024-07-01 11:19] LABS: Albumin Globulin Ratio 1.5 (0.9-2); Albumin Level 3.7 gm/dl (3.4-5.0); BUN Creatinine Ratio 33.9 (10-20); Bilirubin,Total 0.2 mg/dl (0.2-1.0); Calcium 9.1 mg/dl (8.6-10.3); Creatinine Clr Calc Pharmacy 87.6 ml/min; Globulin 2.5 gm/dl (2.5-4.0); Magnesium 1.8 mg/dl (1.7-2.4); Potassium 4.4 mmol/L (3.5-5.1); Total Protein 6.2 gm/dl (6.0-8.3)
[2024-07-01 11:21] LABS: Partial Thromboplastin Ratio 0.8; Partial Thromboplastin Time 22 Seconds (21-31); Prothrombin Time 10.4 Seconds (9.0-12.0)
[2024-07-01] MEDS: oxyCODONE HCL IR 5 MG TAB (IMMEDIATE RELEASE) PO PRN (11:21)
[2024-07-01] MEDS: HYDROmorphone INJ 1 MG/ML SYRINGE IV PRN (12:56)
--- NOTE | 2024-07-01 16:41 | Hospitalist Progress Note ---
Date of Service July 01, 2024 Assessment & Plan (1) Abdominal pain: (2) Type 2 diabetes mellitus: (3) Chronic pain syndrome: (4) Iron deficiency anemia: (5) HTN (hypertension): (6) PAD (peripheral artery disease): (7) Esophagitis determined by endoscopy: (8) B12 deficiency: (9) History of tobacco use: (10) Neural foraminal stenosis of lumbar spine: (11) Pneumonia: Plan 59-year-old female with past medical history of insulin-dependent type 2 diabetes mellitus, peripheral arterial disease status post right BKA, essential hypertension, chronic pain syndrome on chronic opiates, grade D esophagitis from recent EGD in May 2024, gastroparesis who presented to the ED with vomiting, coughing, fever and chills and was found to have a left lower lobe pneumonia with sepsis #Left lower lobe pneumonia admission chest x-ray with left lower lobe pneumonia versus atelectasis, completed course of oral doxycycline. continues to feel ill and continues to have productive cough with greenish and blackish sputum. repeat chest x-ray 06/27 With new right basilar infiltrate and increased left basilar infiltrate compared to admission levofloxacin 750 mg p.o. x 5 days for pneumonia and patient finish 5 days of treatment today 07/01/2024 - sputum culture ordered but not submitted - CTA chest 06/30 no PE, pleural effusion or pneumonia #Epigastric pain #Chronic pain syndrome #Recent hematemesis: Resolved #Iron deficiency anemia with superimposed B12 deficiency Patient was seen by GI for hematemesis She had a recent EGD in May 2024 which showed grade D esophagitis GI did not recommend endoscopy at this point and recommended treating with PPI: She was initially treated with IV PPI which is being changed to oral PPI H&H is stable Continue B12 supplementation Patient is on chronic opiates at home Palliative care is following with her regarding pain management She is now agreeable to using her home dose of oxycodone as needed for severe pain and will need to use IV Dilaudid for breakthrough pain only. Patient has epigastric pain which is different from her chronic pain She has a mesenteric ultrasound which shows stenosis in celiac and SMA Given patient's history of PAD, right BKA, tobacco use will get CTA angio of the abdominal vessels to look for any cause of abdominal pain: Lactate is normal, white count is normal. Vitamin B1 levels pending Await further palliative care recommendations #Insulin-dependent type 2 diabetes mellitus with diabetic neuropathy A1c 7.1 (06/03/2024) Continue Lantus 5 units subcutaneous twice daily Accu-Cheks before every meal and nightly sliding scale insulin coverage Continue Lyrica 100 mg p.o. 3 times daily Monitor glycemic control #Essential hypertension #Peripheral arterial disease #Nonobstructive coronary disease Continue home regiment of clonidine, hydralazine, lisinopril, metoprolol and nifedipine Continue aspirin and Plavix Check lipid panel in a.m. Monitor vital signs CODE STATUS: Full code DVT prophylaxis: Bilateral SCD. Patient also on aspirin and Plavix. She bled while being on heparin subcutaneous for DVT prophylaxis Care plan discussed with patient in great detail Admission and Anticipated Discharge Date Admission Date: June 20, 2024 Subjective Patient seen and examined Chart reviewed Labs reviewed Mesenteric ultrasound reviewed Patient still complaining of epigastric pain that radiates to her back: Patient states it is this pain that brought her into the hospital. She has had it for a while. Appetite is slowly improved. Denies fevers or chills at this point. She ambulates with a walker. Patient states she lives at home with her . She stopped smoking 9 months ago. Denies alcohol use. Review of Systems Review of Systems: As per subjective Physical Exam Physical Exam: General: No acute distress Psych: Awake and alert HEENT: Anicteric sclera, moist oral mucosa CVS: Regular rate and rhythm Lungs: Bilateral air entry, no wheezing noted Abdomen: Soft, epigastric tenderness to palpation, no rebound, no guarding Ext: No lower extremity edema, no calf tenderness, right BKA noted. Left foot dorsum wound in dressing. Neuro: No focal motor deficits noted Results & Data Results & Data Vital Signs (Past 12 Hours) Vital Signs Temp Pulse Resp BP Pulse Ox O2 Del Method 07/01/24 15:08 36.7 C 62 18 115/62 93 Room Air 07/01/24 09:00 Room Air 07/01/24 07:41 36.6 C 63 16 130/75 94 Room Air Laboratory Results Laboratory Results - last 24 hr 06/30/24 07/01/24 07/01/24 19:58 07:35 10:41 WBC 8.84 RBC 4.23 Hgb 10.0 L Hct 32.3 L MCV 76.4 L MCH 23.6 L MCHC 31.0 L RDW Std Deviation 46.5 H RDW Coeff of [place] 16.7 H Plt Count 228 MPV 10.4 Immature Gran % (Auto) 0.3 Neut % (Auto) 58.8 Lymph % (Auto) 24.4 [place] % (Auto) 9.5 Eos % (Auto) 6.3 Baso % (Auto) 0.7 Neut # (Auto) 5.19 Lymph # (Auto) 2.16 [place] # (Auto) 0.84 H Eos # (Auto) 0.56 H Baso # (Auto) 0.06 Immature Gran # (Auto) 0.03 Absolute Nucleated RBC 0.02 Nucleated RBC % (auto) 0.2 Platelet Estimate Normal Polychromasia 2+ Ovalocytes 1+ PT 10.4 INR 1.0 APTT 22 PTT Ratio 0.8 Sodium 139 Potassium 4.4 Chloride 104 Carbon Dioxide 29 Anion Gap 6 BUN 20 Creatinine 0.59 L Est Cr Clr Drug Dosing 87.6 eGFR 103.11 BUN/Creatinine Ratio 33.9 H Glucose 131 H POC Glucose 169 H 143 H Lactate 1.0 Calcium 9.1 Magnesium 1.8 Total Bilirubin 0.2 AST 9 L ALT 8 Alkaline Phosphatase 50 Total Protein 6.2 Albumin 3.7 Globulin 2.5 Albumin/Globulin Ratio 1.5 07/01/24 11:25 WBC RBC Hgb Hct MCV MCH MCHC RDW Std Deviation RDW Coeff of [place] Plt Count MPV Immature Gran % (Auto) Neut % (Auto) Lymph % (Auto) [place] % (Auto) Eos % (Auto) Baso % (Auto) Neut # (Auto) Lymph # (Auto) [place] # (Auto) Eos # (Auto) Baso # (Auto) Immature Gran # (Auto) Absolute Nucleated RBC Nucleated RBC % (auto) Platelet Estimate Polychromasia Ovalocytes PT INR APTT PTT Ratio Sodium Potassium Chloride Carbon Dioxide Anion Gap BUN Creatinine Est Cr Clr Drug Dosing eGFR BUN/Creatinine Ratio Glucose POC Glucose 114 H Lactate Calcium Magnesium Total Bilirubin AST ALT Alkaline Phosphatase Total Protein Albumin Globulin Albumin/Globulin Ratio Diagnostic Findings Mesenteric US 06/30/24 14:11 Exam(s): US OTHER US duplex mesenteric EXAM: US Duplex Arterial/Venous of the mesenteric vasculature CLINICAL HISTORY: Reason for exam: severe vascular dz, persistent upper abdominal johnathan. TECHNIQUE: Real-time duplex ultrasound scan of the abdomen integrating B-mode two- dimensional vascular structure, Doppler spectral analysis and color flow Doppler imaging. COMPARISON: CT 06/02/2024 FINDINGS: Aorta: O=675pd/s. Celiac artery: K=534vc/s. SMA: Xnirro=127ut/s. Prox=*450cm/s. Sxi=391vt/s. Xgglpo=900gc/s. MARTNI not visualized due to bowel gas. Minimal plaque seen in aorta, celiac and SMA. Increased velocity in proximal SMA. IMPRESSION: 1. Markedly increased velocity within the SMA but very little plaque. Suggested 70-99% stenosis by peak systolic velocity of 450 cm/s. 2. Increased velocity within the celiac artery without visualized plaque. Suggested less than 70% stenosis by peak systolic velocity of 199 cm/s. 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 insulin use: with halfway use Chronic pain syndrome G89.4 Iron deficiency anemia D50.9 HTN (hypertension) I10 PAD (peripheral artery disease) I73.9 Esophagitis determined by endoscopy K20.90 B12 deficiency E53.8 History of tobacco use Z87.891 Neural foraminal stenosis of lumbar spine M48.061 Pneumonia J18.9 Laterality: left Lung location: lower lobe of lung Pneumonia type: due to unspecified organism (2) Type 2 diabetes mellitus Diabetes mellitus complication status: with other specified complication Diabetes mellitus halfway insulin use: with halfway use Qualified Code(s): E11.69 - Type 2 diabetes mellitus with other specified complication; Z79.4 - supervisor intermediates (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
[2024-07-01] MEDS: OPTIRAY 320 125ml IV ONE (19:39)
[2024-07-01] MEDS: MAGNESIUM OXIDE 400 MG TAB PO SCH (20:22)
--- NOTE | 2024-07-01 23:31 | CT Scan Report ---
Exam(s): CTA ABDOMEN + PELVIS With Contrast IV Amt: 119 cc opti 320 EXAM: CT Angiography Abdomen and Pelvis With Intravenous Contrast CLINICAL HISTORY: Reason for exam: pain, abnormal mesenteric US. TECHNIQUE: Axial computed tomographic angiography images of the abdomen and pelvis with intravenous contrast. CTDI is 36 mGy and DLP is 985.57 mGy-cm. Automated exposure control was utilized for the study. A dose lowering technique was utilized adhering to the principles of ALARA. MIP reconstructed images were created and reviewed. CONTRAST: Patient received 119 cc opti 320 of IV contrast COMPARISON: Ultrasound 06/30/2024, CT abdomen pelvis 06/02/2024 FINDINGS: VASCULATURE: Aorta: Normal caliber aorta. Mild nonflow limiting atheromatous disease. No dissection. Celiac trunk and mesenteric arteries: Mild atheromatous plaque within the SMA. No significant plaque within the celiac artery. No significant stenosis within the inferior mesenteric artery. Renal arteries: No acute findings. No occlusion or significant stenosis. Iliac arteries: Plaque within the right common and right external iliac arteries causing moderate to severe stenosis. Moderate stenosis within the right internal iliac artery. Atheromatous plaque within the left external iliac artery causing mild stenosis. Mild to moderate stenosis in the left internal iliac artery. -Severe stenosis in the proximal right SFA. -Moderate to severe stenosis in the proximal left SFA. Lung bases: Unremarkable. No mass. No consolidation. ABDOMEN: Liver: Unremarkable. No mass. Gallbladder and bile ducts: Cholecystectomy. No ductal dilation. Pancreas: Unremarkable. No ductal dilation. No mass. Spleen: Unremarkable. No splenomegaly. Adrenals: Unremarkable. No mass. Kidneys and ureters: Unremarkable. No hydronephrosis. No solid mass. Stomach and bowel: Excess stool throughout the colon consistent with constipation. No inflammatory changes or evidence of mesenteric ischemia. No obstruction. No mucosal thickening. PELVIS: Appendix: No findings to suggest acute appendicitis. Bladder: Unremarkable. No mass. Reproductive: Unremarkable as visualized. ABDOMEN and PELVIS: Intraperitoneal space: Unremarkable. No significant fluid collection. No free air. Bones/joints: No acute fracture. No dislocation. Soft tissues: Unremarkable. Lymph nodes: Unremarkable. No enlarged lymph nodes. Other findings: IMPRESSION: 1. Mild atheromatous plaque within the SMA. No flow-limiting stenosis. 2. No significant plaque within the celiac artery. 3. Plaque within the right common and right external iliac arteries causing moderate to severe stenosis. 4. Severe stenosis in the proximal right SFA. 5. Moderate to severe stenosis in the proximal left SFA. 6. Excess stool throughout the colon consistent with constipation. No inflammatory changes or evidence of mesenteric ischemia. Electronically signed by: Charlie Fleming MD 07/01/24 23:31 PM
[2024-07-02] MEDS: CHOLECALCIFEROL 25 MCG (1000 UNITS) TAB PO SCH (08:45)
--- NOTE | 2024-07-02 11:24 | Hospitalist Progress Note ---
Date of Service July 02, 2024 Assessment & Plan (1) Abdominal pain: (2) Type 2 diabetes mellitus: (3) Chronic pain syndrome: (4) Iron deficiency anemia: (5) HTN (hypertension): (6) PAD (peripheral artery disease): (7) Esophagitis determined by endoscopy: (8) B12 deficiency: (9) History of tobacco use: (10) Neural foraminal stenosis of lumbar spine: (11) Pneumonia: (12) Constipation due to pain medication: Plan 59-year-old female with past medical history of insulin-dependent type 2 diabetes mellitus, peripheral arterial disease status post right BKA, essential hypertension, chronic pain syndrome on chronic opiates, grade D esophagitis from recent EGD in May 2024, gastroparesis who presented to the ED with vomiting, coughing, fever and chills and was found to have a left lower lobe pneumonia with sepsis #Left lower lobe pneumonia admission chest x-ray with left lower lobe pneumonia versus atelectasis, completed course of oral doxycycline. continues to feel ill and continues to have productive cough with greenish and blackish sputum. repeat chest x-ray 06/27 With new right basilar infiltrate and increased left basilar infiltrate compared to admission levofloxacin 750 mg p.o. x 5 days for pneumonia and patient finish 5 days of treatment on 07/01/2024 - sputum culture ordered but not submitted - CTA chest 06/30 no PE, pleural effusion or pneumonia #Epigastric pain #Chronic pain syndrome #Recent hematemesis: Resolved #Iron deficiency anemia with superimposed B12 deficiency #Constipation likely related to opiates Patient was seen by GI for hematemesis She had a recent EGD in May 2024 which showed grade D esophagitis GI did not recommend endoscopy at this point and recommended treating with PPI: She was initially treated with IV PPI which is being changed to oral PPI H&H is stable Continue B12 supplementation Patient is on chronic opiates at home Palliative care is following with her regarding pain management She is now agreeable to using her home dose of oxycodone as needed for severe pain and will need to use IV Dilaudid for breakthrough pain only. Patient has epigastric pain which is different from her chronic pain White count and lactate levels are normal CTA of the abdomen pelvis from 07/01/2024 shows mild atheromatous plaque within the SMA, no flow-limiting stenosis. No significant plaque within the celiac artery. Plaque within the right common and right external iliac arteries causing moderate to severe stenosis. Severe stenosis in the proximal SFA. Moderate to severe stenosis in the proximal left SFA. Excess stool throughout the colon consistent with constipation. No inflammatory changes or evidence of mesenteric ischemia Patient to follow-up with her vascular surgeon Dr. Fuentes as outpatient regarding severe stenosis which is chronic in nature Start bowel regimen: Continue MiraLAX twice a day, add senna twice a day, magnesium citrate x 1 bottle Vitamin B1 levels pending Await further palliative care recommendations: Palliative care is going to reach out to her PCP to see if he is willing to prescribe methadone and wants to get confirmation with PCP, they will touch base with pharmacy to see if methadone is covered under her insurance plan #Insulin-dependent type 2 diabetes mellitus with diabetic neuropathy A1c 7.1 (06/03/2024) Continue Lantus 5 units subcutaneous twice daily Accu-Cheks before every meal and nightly sliding scale insulin coverage Continue Lyrica 100 mg p.o. 3 times daily Monitor glycemic control #Essential hypertension #Peripheral arterial disease #Nonobstructive coronary disease Continue home regiment of clonidine, hydralazine, lisinopril, metoprolol and nifedipine Continue aspirin and Plavix Monitor vital signs CODE STATUS: Full code DVT prophylaxis: Bilateral SCD. Patient also on aspirin and Plavix. She bled while being on heparin subcutaneous for DVT prophylaxis Care plan discussed with patient Admission and Anticipated Discharge Date Admission Date: June 20, 2024 Subjective Patient seen and examined Palliative care at bedside Patient upset about discussions regarding weaning Dilaudid with palliative care She is in agreement with taking laxatives after discussion of CT findings She is tearful about pain medications being weaned Physical Exam Physical Exam: General: No acute distress Psych: Awake and alert HEENT: Anicteric sclera, moist oral mucosa CVS: Regular rate and rhythm Lungs: Bilateral air entry, no wheezing noted Abdomen: Soft, epigastric tenderness to palpation, no rebound, no guarding Ext: No lower extremity edema, no calf tenderness, right BKA noted. Left foot dorsum wound in dressing. Results & Data Results & Data Vital Signs (Past 12 Hours) Vital Signs Temp Pulse Resp BP Pulse Ox O2 Del Method 07/02/24 07:56 36.7 C 62 16 144/75 H 94 Room Air Diagnostic Findings Abdomen/Pelvis CTA 07/01/24 17:06 Exam(s): CTA ABDOMEN + PELVIS With Contrast IV Amt: 119 cc opti 320 EXAM: CT Angiography Abdomen and Pelvis With Intravenous Contrast CLINICAL HISTORY: Reason for exam: pain, abnormal mesenteric US. TECHNIQUE: Axial computed tomographic angiography images of the abdomen and pelvis with intravenous contrast. CTDI is 36 mGy and DLP is 985.57 mGy-cm. Automated exposure control was utilized for the study. A dose lowering technique was utilized adhering to the principles of ALARA. MIP reconstructed images were created and reviewed. CONTRAST: Patient received 119 cc opti 320 of IV contrast COMPARISON: Ultrasound 06/30/2024, CT abdomen pelvis 06/02/2024 FINDINGS: VASCULATURE: Aorta: Normal caliber aorta. Mild nonflow limiting atheromatous disease. No dissection. Celiac trunk and mesenteric arteries: Mild atheromatous plaque within the SMA. No significant plaque within the celiac artery. No significant stenosis within the inferior mesenteric artery. Renal arteries: No acute findings. No occlusion or significant stenosis. Iliac arteries: Plaque within the right common and right external iliac arteries causing moderate to severe stenosis. Moderate stenosis within the right internal iliac artery. Atheromatous plaque within the left external iliac artery causing mild stenosis. Mild to moderate stenosis in the left internal iliac artery. -Severe stenosis in the proximal right SFA. -Moderate to severe stenosis in the proximal left SFA. Lung bases: Unremarkable. No mass. No consolidation. ABDOMEN: Liver: Unremarkable. No mass. Gallbladder and bile ducts: Cholecystectomy. No ductal dilation. Pancreas: Unremarkable. No ductal dilation. No mass. Spleen: Unremarkable. No splenomegaly. Adrenals: Unremarkable. No mass. Kidneys and ureters: Unremarkable. No hydronephrosis. No solid mass. Stomach and bowel: Excess stool throughout the colon consistent with constipation. No inflammatory changes or evidence of mesenteric ischemia. No obstruction. No mucosal thickening. PELVIS: Appendix: No findings to suggest acute appendicitis. Bladder: Unremarkable. No mass. Reproductive: Unremarkable as visualized. ABDOMEN and PELVIS: Intraperitoneal space: Unremarkable. No significant fluid collection. No free air. Bones/joints: No acute fracture. No dislocation. Soft tissues: Unremarkable. Lymph nodes: Unremarkable. No enlarged lymph nodes. Other findings: IMPRESSION: 1. Mild atheromatous plaque within the SMA. No flow-limiting stenosis. 2. No significant plaque within the celiac artery. 3. Plaque within the right common and right external iliac arteries causing moderate to severe stenosis. 4. Severe stenosis in the proximal right SFA. 5. Moderate to severe stenosis in the proximal left SFA. 6. Excess stool throughout the colon consistent with constipation. No inflammatory changes or evidence of mesenteric ischemia. Electronically signed by: Charlie Fleming MD 07/01/24 23:31 PM PG Care Time/CCT Total # of Minutes Spent Total Time Spent with Patient: Total time spent is greater than 50% in coordination of care (as documented) at patient's floor/unit and/or counseling patient: Coding Level of Care Code 11985 SUB INP/OBS CARE 2/35MIN Diagnoses Abdominal pain R10.9 Type 2 diabetes mellitus E11.69; Z79.4 Diabetes mellitus complication status: with other specified complication Diabetes mellitus intermediate insulin use: with intermediate use Chronic pain syndrome G89.4 Iron deficiency anemia D50.9 HTN (hypertension) I10 PAD (peripheral artery disease) I73.9 Esophagitis determined by endoscopy K20.90 B12 deficiency E53.8 History of tobacco use Z87.891 Neural foraminal stenosis of lumbar spine M48.061 Pneumonia J18.9 Laterality: left Lung location: lower lobe of lung Pneumonia type: due to unspecified organism Constipation due to pain medication K59.03 (2) Type 2 diabetes mellitus Diabetes mellitus complication status: with other specified complication Diabetes mellitus intermediate insulin use: with laborer marine terminal use Qualified Code(s): E11.69 - Type 2 diabetes mellitus with other specified complication; Z79.4 - extermination supervisor (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
--- NOTE | 2024-07-02 11:46 | Communication Note ---
Date of Service: July 02, 2024 1140AM Liliana was seen today with primary team (Dr Paz) and Petr Zheng [employer] Pall med She complains of continued and persistent pain, reports that there is no relief with the oxycodone and the only med relief she is a field to obtain is through her Dilaudid IV doses. She understands that this is not an option for her at home therapy. She states that she takes the Oxy "because there is no other choice, but it does not help at all." She has reported issues with the following opioids: Morphine creates blisters in her mouth, fentanyl transdermal patch caused her to hallucinate, she refuses to consider methadone or buprenorphine "because other family members have had addiction with these medicines." She states that IV Dilaudid works best but oral Dilaudid which has been tried in the past did not provide any relief. In the past, attempts to begin therapy with long-acting oxycodone extended release were denied by her insurance company who wanted a trial of transdermal fentanyl patch. This appears to have been done in the past with the result of hallucinations as a side effect however it is unclear if that was ever then represented to her [employer] company as a reason to then approve oxycodone extended release. We discussed that if she wants to optimize pain management, then at this point an opioid rotation is necessary, given that she has had escalating doses of oxycodone up to the range of 60 mg orally without any significant relief. Since she has an allergic reaction to morphine with blisters in her mouth and reports hallucination with transdermal fentanyl, the alternatives for an opioid rotation at this point would be oral Dilaudid (which she states provided no relief and escalated doses during her prior admission), or methadone oral tablets which we know would take a few days to reach a steady state. After further discussion that methadone is not a drug that would create addiction and in fact has been used in addiction treatment regimens at significantly higher doses, she was more assured and was willing to try this but wanted to remain on her IV Dilaudid as needed for now. Given that her imaging shows extensive stool retention and constipation, we agreed that for today our focus would be to more aggressively treat her constipation to empty out her bowel, see if this improves her abdominal discomfort, and continue her current pain regimen of Oxy IR as needed and Dilaudid IV as needed without changes until we have a conversation with her primary care doctor to determine if he would be willing to continue oral pain medication management with a drug such as methadone. She states she has a good relationship with her primary care doctor and feels that he would be willing to provide ongoing pain management. I advised her that I would call his office to discuss her situation with him and to also make sure that he would be willing to continue ongoing pain management if a medication such as methadone is initiated. I called/LM with Estephania HANKINS at office of Dr. Reji Vernon - PCP [address] [place] [id number] office: email: [email or web address] He returned my call later this evening. He states that he is comfortable managing methadone in the outpatient setting through the primary care office so long as she keeps routine appointments with him. He is currently managing methadone for a small handful of other primary care patients with similar pain related issues. I provided him a brief medical update including results of the abdominal CTA and advised that we were initiating some conversations with regards to advance care planning and the nature of a progressive vascular illness. During my time with patient earlier today, we discussed that she has a chronic progressive illness that is not curable, reversible or fixable. Some of the symptoms and progressive decline she is experiencing are related to the progression of chronically worsening vascular disease. I asked her to try and identify in the next day or so her top 3 goals/preferences/wishes for herself while we did some homework to determine what can and cannot be done for her in the outpatient setting. I also advised her that I would like her to go home from this admission with visiting nurse services for medication management oversight and some closer follow-up. During my conversation with her primary care provider, I also asked his office to begin examining what local options for additional support she may have perhaps through the [facility] agency on aging. I advised patient that our goal overall is to optimize her quality of life knowing that we cannot cure, reverse or otherwise fix her chronically progressive illness. I specifically discussed that progressive vascular disease continues to restrict blood flow to the body including arms, legs and other body parts. Blood vessels are becoming more narrow, may become blocked and/or spasm. This will lead to progressive pain and cramping and because it reduces circulation of blood to body parts, the potential for further amputations in the future may exist. We discussed that the life expectancy a progressive vascular illness can often be difficult to determine and may come in various stages. As this disease progresses, blood flow become severely reduced to parts of the body, patients may experience increasing pain, claudication, cramping, fatigue. There also may be coldness of the affected body part. Overall, but potentially helps improve the overall prognostic longevity for patients with progressive arterial or vascular disease is lifestyle modification which she continues to struggle with. Ultimately, end-stage vascular disease may put patients at risk of further limb amputation, life-threatening complications which may include stroke or gangrene. While these treatments may typically involve surgery as the intervention of choice, patient's functional status may continue to decline to her surgery is no longer considered a safe or viable option and at some point to transition to focus more on comfort and quality of life with symptom management becomes the preferred plan of care for optimizing terminal illness management. I encouraged her to begin thinking about the potential what if scenarios as this progressive illness declines and she experiences further compromise in performance status and functional ability, and I encouraged her to take the time today to begin reflecting on what her top priorities/wishes and preferences would be as these changes began to happen so that as a medical team we are prepared and make sure that she has the proper resources necessary to help support her through the progression of this illness. TS 40min face to face ACP at bedside Thank you for allowing us to participate in the ongoing care of this patient. Please page with any additional concerns. Ree Driscoll DNP Director, Palliative Medicine
[2024-07-02] MEDS: SENNA 8.6 MG TAB PO SCH (11:59)
[2024-07-02] MEDS: ALPRAZolam 0.5 MG TABLET PO PRN (11:59)
[2024-07-02] MEDS: bisacodyL 10 MG SUPP PR STA (12:00)
[2024-07-02] MEDS: MAGNESIUM CITRATE 296 ML/BTL PO STA (13:30)
[2024-07-02] MEDS: MAGNESIUM CITRATE 296 ML/BTL ONE (13:30)
--- NOTE | 2024-07-03 08:44 | XRay Report ---
KUB HISTORY: Acute abdominal trauma FALL WITH TRAUMA COMPARISON: CTA abdomen and pelvis 07/01/2024 FINDINGS: Moderate to extensive colonic fecal retention. Cholecystectomy. Lumbosacral spinal fusion h ardware. No renal calculi. No ureteral calculi. No pneumoperitoneum or pneumatosis. No fracture. IMPRESSION: 1. Moderate to extensive fecal retention with nonobstructive bowel gas pattern. 2. Cholecystectomy. ACT 112: Negative or not required by law. The above report was generated using voice recognition software. It may contain grammatical, syntax o r spelling errors. Electronically signed by: Puneet Howard M.D. 07/03/2024 8:43 AM
--- NOTE | 2024-07-03 08:46 | XRay Report ---
XR shoulder RT min 2V routine HISTORY: 59 years-old Female FALL WITH TRAUMA . Right shoulder pain status post fall COMPARISON: None TECHNIQUE: 3 views of the right shoulder FINDINGS: Mild glenohumeral with moderate AC joint osteoarthritis. No acute fracture, dislocation or opaque for eign body. The imaged lung cardozo appear clear. IMPRESSION: No acute fracture or dislocation. ACT 112: Negative or not required by law. The above report was generated using voice recognition software. It may contain grammatical, syntax o r spelling errors. Electronically signed by: Puneet Howard M.D. 07/03/2024 8:44 AM
--- NOTE | 2024-07-03 08:47 | XRay Report ---
XR ribs BI min 4V w CXR1V CLINICAL HISTORY: FALL WITH TRAUMA COMPARISON: Chest radiograph June 27, 2024. Chest CT June 30, 2024. FINDINGS: There is no pneumothorax or pleural effusion. No airspace opacities are present. Pulmonary vascularity is normal. No rib fractures are identified. Cardiomediastinal silhouette is unremarkable . IMPRESSION: No pneumothorax. No rib fractures identified. ACT 112: Negative or not required by law. Electronically signed by: Wilver Powell M.D. 07/03/2024 8:45 AM
--- NOTE | 2024-07-03 08:47 | XRay Report ---
XR forearm RT 2V HISTORY: 59 years-old Female FALL WITH TRAUMA acute pain of the right upper extremity status post fa ll COMPARISON: Humerus radiographs of same day TECHNIQUE: 2 views of the right forearm FINDINGS: Osteoarthritis of the wrist and elbow. No acute fracture, dislocation or opaque foreign body. There i s mid forearm soft tissue swelling. IMPRESSION: No acute fracture or dislocation. ACT 112: Negative or not required by law. The above report was generated using voice recognition software. It may contain grammatical, syntax o r spelling errors. Electronically signed by: Puneet Howard M.D. 07/03/2024 8:45 AM
--- NOTE | 2024-07-03 08:48 | XRay Report ---
XR humerus RT 2V CLINICAL HISTORY: FALL WITH TRAUMA COMPARISON: Right shoulder radiographs June 17, 2022. FINDINGS: There are no fractures within the right humerus. Alignment of the right elbow and right sh oulder is anatomic. There are no osseous lesions. There is moderate joint space narrowing and osteoph ytosis of the right acromioclavicular joint. IMPRESSION: 1. No fractures within the right humerus. 2. Moderate right AC joint osteoarthritis. ACT 112: Negative or not required by law. Electronically signed by: Wilver Powell M.D. 07/03/2024 8:47 AM
--- NOTE | 2024-07-03 09:05 | Palliative Family Discussion ---
Date of Service July 03, 2024 Patient Directed Conference Time of [phone] face to face with pt at bedside [phone] with Dr Vernon Participants: Alondra Driscoll DNP Patient participation: yes Patient Support System: No Other Healthcare Provider Participation: Petr MARCANO/Pall med, Dr Alejandra gil/Primary team Meeting Location: bedside No AD on file Code status: full A face to face ACP meeting was held with Mariana at bedside Topics of Discussion Date of Service: July 02, 2024 1140AM Liliana was seen today with primary team (Dr Paz) and Petr Zheng [employer] Pall med She complains of continued and persistent pain, reports that there is no relief with the oxycodone and the only med relief she is a field to obtain is through her Dilaudid IV doses. She understands that this is not an option for her at home therapy. She states that she takes the Oxy "because there is no other choice, but it does not help at all." She has reported issues with the following opioids: Morphine creates blisters in her mouth, fentanyl transdermal patch caused her to hallucinate, she refuses to consider methadone or buprenorphine "because other family members have had addiction with these medicines." She states that IV Dilaudid works best but oral Dilaudid which has been tried in the past did not provide any relief. In the past, attempts to begin therapy with long-acting oxycodone extended release were denied by her insurance company who wanted a trial of transdermal fentanyl patch. This appears to have been done in the past with the result of hallucinations as a side effect however it is unclear if that was ever then represented to her insurance company as a reason to then approve oxycodone extended release. We discussed that if she wants to optimize pain management, then at this point an opioid rotation is necessary, given that she has had escalating doses of oxycodone up to the range of 60 mg orally without any significant relief. Since she has an allergic reaction to morphine with blisters in her mouth and reports hallucination with transdermal fentanyl, the alternatives for an opioid rotation at this point would be oral Dilaudid (which she states provided no relief and escalated doses during her prior admission), or methadone oral tablets which we know would take a few days to reach a steady state. After further discussion that methadone is not a drug that would create addiction and in fact has been used in addiction treatment regimens at significantly higher doses, she was more assured and was willing to try this but wanted to remain on her IV Dilaudid as needed for now. Given that her imaging shows extensive stool retention and constipation, we agreed that for today our focus would be to more aggressively treat her constipation to empty out her bowel, see if this improves her abdominal discomfort, and continue her current pain regimen of Oxy IR as needed and Dilaudid IV as needed without changes until we have a conversation with her primary care doctor to determine if he would be willing to continue oral pain medication management with a drug such as methadone. She states she has a good relationship with her primary care doctor and feels that he would be willing to provide ongoing pain management. I advised her that I would call his office to discuss her situation with him and to also make sure that he would be willing to continue ongoing pain management if a medication such as methadone is initiated. I called/LM with Estephania HANKINS at office of Dr. Reji Vernon - PCP [address] [place] [address] office: email: He returned my call later this evening. He states that he is comfortable managing methadone in the outpatient setting through the primary care office so long as she keeps routine appointments with him. He is currently managing methadone for a small handful of other primary care patients with similar pain related issues. I provided him a brief medical update including results of the abdominal CTA and advised that we were initiating some conversations with regards to advance care planning and the nature of a progressive vascular illness. During my time with patient earlier today, we discussed that she has a chronic progressive illness that is not curable, reversible or fixable. Some of the symptoms and progressive decline she is experiencing are related to the progression of chronically worsening vascular disease. I asked her to try and identify in the next day or so her top 3 goals/preferences/wishes for herself while we did some homework to determine what can and cannot be done for her in the outpatient setting. I also advised her that I would like her to go home from this admission with visiting nurse services for medication management oversight and some closer follow-up. During my conversation with her primary care provider, I also asked his office to begin examining what local options for additional support she may have perhaps through the [facility] agency on aging. I advised patient that our goal overall is to optimize her quality of life knowing that we cannot cure, reverse or otherwise fix her chronically progressive illness. I specifically discussed that progressive vascular disease continues to restrict blood flow to the body including arms, legs and other body parts. Blood vessels are becoming more narrow, may become blocked and/or spasm. This will lead to progressive pain and cramping and because it reduces circulation of blood to body parts, the potential for further amputations in the future may exist. We discussed that the life expectancy a progressive vascular illness can often be difficult to determine and may come in various stages. As this disease progresses, blood flow become severely reduced to parts of the body, patients may experience increasing pain, claudication, cramping, fatigue. There also may be coldness of the affected body part. Overall, but potentially helps improve the overall prognostic longevity for patients with progressive arterial or vascular disease is lifestyle modification which she continues to struggle with. Ultimately, end-stage vascular disease may put patients at risk of further limb amputation, life-threatening complications which may include stroke or gangrene. While these treatments may typically involve surgery as the intervention of choice, patient's functional status may continue to decline to her surgery is no longer considered a safe or viable option and at some point to transition to focus more on comfort and quality of life with symptom management becomes the preferred plan of care for optimizing terminal illness management. I encouraged her to begin thinking about the potential what if scenarios as this progressive illness declines and she experiences further compromise in performance status and functional ability, and I encouraged her to take the time today to begin reflecting on what her top priorities/wishes and preferences would be as these changes began to happen so that as a medical team we are prepared and make sure that she has the proper resources necessary to help support her through the progression of this illness. TS 40min face to face ACP at bedside Thank you for allowing us to participate in the ongoing care of this patient. Please page with any additional concerns. Ree Driscoll DNP Director, Palliative Medicine
--- NOTE | 2024-07-03 10:58 | Hospitalist Progress Note ---
Date of Service July 03, 2024 Assessment & Plan (1) Abdominal pain: (2) Type 2 diabetes mellitus: (3) Chronic pain syndrome: (4) Iron deficiency anemia: (5) HTN (hypertension): (6) PAD (peripheral artery disease): (7) Esophagitis determined by endoscopy: (8) B12 deficiency: (9) History of tobacco use: (10) Neural foraminal stenosis of lumbar spine: (11) Pneumonia: (12) Constipation due to pain medication: Plan 59-year-old female with past medical history of insulin-dependent type 2 diabetes mellitus, peripheral arterial disease status post right BKA, essential hypertension, chronic pain syndrome on chronic opiates, grade D esophagitis from recent EGD in May 2024, gastroparesis who presented to the ED with vomiting, coughing, fever and chills and was found to have a left lower lobe pneumonia with sepsis #Unwitnessed fall Blood pressure is low, patient had a syncopal episode with dizziness and lightheadedness likely due to hypotension Radiology reviewed: No evidence of fracture or dislocation on x-ray as noted Hold antihypertensives IV Dilaudid also causing hypotension: Hold IV Dilaudid if systolic blood pressure less than 105: This was discussed with patient IV fluid 500 mL bolus Monitor orthostatic vital signs #Left lower lobe pneumonia admission chest x-ray with left lower lobe pneumonia versus atelectasis, completed course of oral doxycycline. continues to feel ill and continues to have productive cough with greenish and blackish sputum. repeat chest x-ray 06/27 With new right basilar infiltrate and increased left basilar infiltrate compared to admission levofloxacin 750 mg p.o. x 5 days for pneumonia and patient finish 5 days of treatment on 07/01/2024 - sputum culture ordered but not submitted - CTA chest 06/30 no PE, pleural effusion or pneumonia #Epigastric pain #Chronic pain syndrome #Recent hematemesis: Resolved #Iron deficiency anemia with superimposed B12 deficiency #Constipation likely related to opiates Patient was seen by GI for hematemesis She had a recent EGD in May 2024 which showed grade D esophagitis GI did not recommend endoscopy at this point and recommended treating with PPI: She was initially treated with IV PPI which is being changed to oral PPI H&H is stable Continue B12 supplementation Patient is on chronic opiates at home Palliative care is following with her regarding pain management She is now agreeable to using her home dose of oxycodone as needed for severe pain and will need to use IV Dilaudid for breakthrough pain only. Patient aware that if systolic blood pressures less than 105, IV Dilaudid will not be given as it can cause hypotension Patient has epigastric pain which is different from her chronic pain White count and lactate levels are normal CTA of the abdomen pelvis from 07/01/2024 shows mild atheromatous plaque within the SMA, no flow-limiting stenosis. No significant plaque within the celiac artery. Plaque within the right common and right external iliac arteries causing moderate to severe stenosis. Severe stenosis in the proximal SFA. Moderate to severe stenosis in the proximal left SFA. Excess stool throughout the colon consistent with constipation. No inflammatory changes or evidence of mesenteric ischemia Patient to follow-up with her vascular surgeon Dr. Fuentes as outpatient regarding severe stenosis which is chronic in nature Bowel regiment: Continue MiraLAX twice a day, add senna twice a day, magnesium citrate x 1 bottle today, Dulcolax suppository daily x 3 days and start Linzess Vitamin B1 levels pending Await further palliative care recommendations re: methadone vs Oxycontin and analgesia. #Insulin-dependent type 2 diabetes mellitus with diabetic neuropathy A1c 7.1 (06/03/2024) Continue Lantus 5 units subcutaneous twice daily Accu-Cheks before every meal and nightly sliding scale insulin coverage Continue Lyrica 100 mg p.o. 3 times daily Monitor glycemic control #Essential hypertension #Peripheral arterial disease #Nonobstructive coronary disease Hold hydralazine, lisinopril and nifedipine in light of hypotension causing dizziness and fall Reduce clonidine to 0.1 mg p.o. twice daily with hold parameters Continue Toprol-XL with hold parameters Continue aspirin and Plavix Monitor vital signs: Orthostatic vital signs CODE STATUS: Full code DVT prophylaxis: Bilateral SCD. Patient also on aspirin and Plavix. She bled while being on heparin subcutaneous for DVT prophylaxis Care plan discussed with patient, nursing staff and palliative care team Adolfo updated at bedside with patient's permission Admission and Anticipated Discharge Date Admission Date: June 20, 2024 Subjective Patient seen and examined Adolfo at bedside Patient had an unwitnessed fall this morning when she was trying to get out of bed with her walker to open her windows and felt dizzy and lightheaded and fell. Patient states she fell on her right side and also hit the walker on her left abdominal area with an abrasion. Denies head trauma or loss of consciousness She had multiple traumatic x-rays done which were reviewed and are all negative for fracture or dislocation She is agreeing to taking laxatives as abdominal x-ray shows copious amounts of stool. Patient states she took laxatives yesterday and had hard stools and recognizes that she is constipated. Blood pressure was found to be low this morning She is tolerating oral diet without any nausea vomiting Physical Exam Physical Exam: General: No acute distress Psych: Awake and alert HEENT: Anicteric sclera, moist oral mucosa CVS: Regular rate and rhythm Lungs: Bilateral air entry, no wheezing noted Abdomen: Soft, epigastric tenderness to palpation, no rebound, no guarding, left abdominal wall abrasion noted Ext: No lower extremity edema, no calf tenderness, right BKA noted. Left foot dorsum wound in dressing, right elbow traumatic wound noted in dressing, no bleeding noted. Results & Data Results & Data Vital Signs (Past 12 Hours) Vital Signs Temp Pulse Resp BP Pulse Ox O2 Del Method 07/03/24 07:00 36.7 C 70 18 136/72 94 Room Air Diagnostic Findings Forearm X-Ray 07/03/24 07:34 XR forearm RT 2V HISTORY: 59 years-old Female FALL WITH TRAUMA acute pain of the right upper extremity status post fall COMPARISON: Humerus radiographs of same day TECHNIQUE: 2 views of the right forearm FINDINGS: Osteoarthritis of the wrist and elbow. No acute fracture, dislocation or opaque foreign body. There is mid forearm soft tissue swelling. IMPRESSION: No acute fracture or dislocation. ACT 112: Negative or not required by law. The above report was generated using voice recognition software. It may contain grammatical, syntax or spelling errors. Electronically signed by: Puneet Howard M.D. 07/03/2024 8:45 AM Humerus X-Ray 07/03/24 07:34 XR humerus RT 2V CLINICAL HISTORY: FALL WITH TRAUMA COMPARISON: Right shoulder radiographs June 17, 2022. FINDINGS: There are no fractures within the right humerus. Alignment of the right elbow and right shoulder is anatomic. There are no osseous lesions. There is moderate joint space narrowing and osteophytosis of the right acromioclavicular joint. IMPRESSION: 1. No fractures within the right humerus. 2. Moderate right AC joint osteoarthritis. ACT 112: Negative or not required by law. Electronically signed by: Wilver Powell M.D. 07/03/2024 8:47 AM KUB X-Ray 07/03/24 07:34 KUB HISTORY: Acute abdominal trauma FALL WITH TRAUMA COMPARISON: CTA abdomen and pelvis 07/01/2024 FINDINGS: Moderate to extensive colonic fecal retention. Cholecystectomy. Lumbosacral spinal fusion hardware. No renal calculi. No ureteral calculi. No pneumoperitoneum or pneumatosis. No fracture. IMPRESSION: 1. Moderate to extensive fecal retention with nonobstructive bowel gas pattern. 2. Cholecystectomy. ACT 112: Negative or not required by law. The above report was generated using voice recognition software. It may contain grammatical, syntax or spelling errors. Electronically signed by: Puneet Howard M.D. 07/03/2024 8:43 AM Ribs w/Chest X-Ray 07/03/24 07:34 XR ribs BI min 4V w CXR1V CLINICAL HISTORY: FALL WITH TRAUMA COMPARISON: Chest radiograph June 27, 2024. Chest CT June 30, 2024. FINDINGS: There is no pneumothorax or pleural effusion. No airspace opacities are present. Pulmonary vascularity is normal. No rib fractures are identified. Cardiomediastinal silhouette is unremarkable. IMPRESSION: No pneumothorax. No rib fractures identified. ACT 112: Negative or not required by law. Electronically signed by: Wilver Powell M.D. 07/03/2024 8:45 AM Shoulder X-Ray 07/03/24 07:34 XR shoulder RT min 2V routine HISTORY: 59 years-old Female FALL WITH TRAUMA . Right shoulder pain status post fall COMPARISON: None TECHNIQUE: 3 views of the right shoulder FINDINGS: Mild glenohumeral with moderate AC joint osteoarthritis. No acute fracture, dislocation or opaque foreign body. The imaged lung cardozo appear clear. IMPRESSION: No acute fracture or dislocation. ACT 112: Negative or not required by law. The above report was generated using voice recognition software. It may contain grammatical, syntax or spelling errors. Electronically signed by: Puneet Howard M.D. 07/03/2024 8:44 AM PG Care Time/CCT Total # of Minutes Spent Total Time Spent with Patient: Total time spent is greater than 50% in coordination of care (as documented) at patient's floor/unit and/or counseling patient: Coding Level of Care Code 24867 SUB INP/OBS CARE 3/50MIN Diagnoses Abdominal pain R10.9 Type 2 diabetes mellitus E11.69; Z79.4 Diabetes mellitus complication status: with other specified complication Diabetes mellitus nursing home insulin use: with nursing home use Chronic pain syndrome G89.4 Iron deficiency anemia D50.9 HTN (hypertension) I10 PAD (peripheral artery disease) I73.9 Esophagitis determined by endoscopy K20.90 B12 deficiency E53.8 History of tobacco use Z87.891 Neural foraminal stenosis of lumbar spine M48.061 Pneumonia J18.9 Laterality: left Lung location: lower lobe of lung Pneumonia type: due to unspecified organism Constipation due to pain medication K59.03 (2) Type 2 diabetes mellitus Diabetes mellitus complication status: with other specified complication Diabetes mellitus nursing home insulin use: with nursing home use Qualified Code(s): E11.69 - Type 2 diabetes mellitus with other specified complication; Z79.4 - halfway (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
[2024-07-03] MEDS: bisacodyL 10 MG SUPP PR STA (12:37)
[2024-07-03] MEDS: MAGNESIUM CITRATE 296 ML/BTL PO STA (12:38)
[2024-07-03] MEDS: linaCLOtide 72 MCG CAPSULE PO SCH (12:38)
[2024-07-03] MEDS: SODIUM CHLORIDE 0.9% 600 ML IV ONE (16:41)
[2024-07-03] MEDS: MAGNESIUM HYDROXIDE SUSP 30 ML UDC PO ONE (17:26)
[2024-07-03] MEDS: cloNIDine HCL 0.1 MG TAB PO SCH (23:24)
--- NOTE | 2024-07-03 23:30 | Palliative Family Discussion ---
Date of Service July 03, 2024 Patient Directed Conference Time of Meetin Participants: Rafael Zheng [facility] Patient participation: Yes Patient Support System: spouse Other Healthcare Provider Participation: None Meeting Location: bedside Advanced Directive available: No If yes, descriptors: The patient's surrogate medical decision maker participated: yes Legally authorized health care proxy: spouse, COLEMAN Other surrogate: Daughter A family meeting was held for EILEEN ESCOBAR. This meeting was necessary for determining the appropriate course of treatment. Met with pt and her spouse at bedside to discuss pain management and GOC. Reviewed her medical history and HPI as well as nature of a progressive vascular illness. Helped both understand the pt's multiple progressive comorbidities and how with pt's limited mobility and severe vascular disease she is at a high risk for future complications such as chronic wounds, infection/sepsis, poor perfusion requiring surgery/amputation, and even more catastrophic complications such as [place] or stroke. Pt shared that she has two adult children with her current and three adult children from previous relationship. Discussed importance of LW/AD and appointing a proxy for medical decisions that would not only know her wishes, but also be available for medical updates and willing to make decisions that are consistent with her goals and values in event that she is unable to answer questions herself. Shared with pt that in absence of properly executed LW/AD, per Bej595 her proxy for medical decisions would be both her spouse AND her adult children from her previous relationship with EQUAL decisional power. She shared that she does want to complete a LW/AD and paperwork was supplied for her to review with her spouse. For this admission she has asked that her spouse serve as primary MDM proxy and their daughter be secondary proxy. Given pt's extensive vascular disease and stated importance of functional independence, we discussed code status. Shared with pt that resuscitation is something that is done only when a pt has , and can involve painful procedures and have complications such as rib fractures, anoxic brain injury and permanent ventilator dependence. Discussed that given her extensive vascular disease and multiple comorbidities, attempts at resuscitation would most certainly result in further impairment in cognition and function. Pt shared that she would want full resuscitation and mechanical ventilation if required, but would not want to be on machines to keep her alive if there was no hope for her to return to a normal cognition and current level of function. Further discussed pt's goals and values. She shared that her top three priorities to consider in quality of life are 1. being able to spend time with her grand children and family without debilitating pain 2. to be able to do chores and housework and be more independent at home 2. being able to spend time and be more intimate with her spouse without debilitating pain. We discussed that to optimize pain management, an opioid rotation will be necessary, given her escalating doses of oxycodone without any significant relief. Since she has barriers to morphine and transdermal fentanyl, the alternatives for opioid rotation for home use would be oral Dilaudid (with which she denies relief), or methadone oral tablets. Again reinforced that methadone does not typically create addiction. Pt is now willing to try methadone PRN for better pain mgmt, but would like to see if Oxycotin would be paid for by her insurance first. Again discussed her reports of minimal relief from Oxycodone and that she may benefit from opiate rotation. For now we will continue her current pain regimen of Oxy IR as needed and Dilaudid IV as needed without changes until we are able to determine insurance coverage and co-pay affordability of oxycontin vs methadone. Given that Dr. Reji Vernon - PCP has agreed to prescribe either as outpt, methadone will likely prove to be more affordable and a good option for extermination supervisor chronic pain manage ment. Would like to start as inpt to gauge response. Request placed with CM to begin preauth. Discussed OIC and need for scheduled daily bowel regime as long as she is on opiate analgesia. Imaging shows extensive stool retention and constipation, Pt agreed to continue bowelregime and will have additional dulcolax suppository today. Will consider relistor if OIC remains refractory to current bowel regime. Topics of Discussion Topics of Discussion: 1. pt goals and values 2. pain and symptom management 3. LW/AD 4. Medical decision making proxy 5. Diseasep progress Other Content of Meetin. Opportunity given for participants to speak and ask questions. 2. Participants were assured of attention to patient comfort. 3. Reassurance provided. 4. Support was provided for informed, good-ashley decisions. 5. Emotions expressed by family were acknowledged and addressed. 6. Follow-up Outpatient: TBD 7. Plan of Care: continued full care/ full treat Time Involved in Meeting: I spent 70 minutes overall addressing this case: 20 in medical data review/discussion with referring provider(s) and/or preparation for the visit 40 in direct interaction with the patient 20 Advance Care Planning/Goals of Care discussions as detailed above in note (must be >16min) 10 in subsequent review and synthesis of assessment and plan
[2024-07-04] MEDS: oxyCODONE HCL IR 5 MG TAB (IMMEDIATE RELEASE) PO SCH (01:26)
[2024-07-04] MEDS: bisacodyL 10 MG SUPP PR SCH (08:12)
[2024-07-04 10:07] LABS: Hematocrit (blood only) 33.4 % (37.0-47.0); Mean Corpuscular Hemoglobin 23.4 pg (25.0-34.0); Mean Corpuscular Hgb Conc 29.9 g/dL (32.0-36.0); Mean Corpuscular Volume 78.2 fL (80.0-100.0); Mean Platelet Volume 10.6 fL (9.4-12.4); Platelet Count 251 K/uL (130-400); RDW Coefficient of Variation 16.7 % (11.5-14.5); RDW Standard Deviation 47.7 fL (36.4-46.3); Red Blood Count 4.27 M/uL (4.20-5.40); White Blood Count 12.64 K/ul (4.8-10.8)
[2024-07-04 10:13] LABS: BUN Creatinine Ratio 42.9 (10-20); Creatinine Clr Calc Pharmacy 92.3 ml/min; Magnesium 2.4 mg/dl (1.7-2.4); Potassium 4.6 mmol/L (3.5-5.1)
--- NOTE | 2024-07-04 10:55 | Palliative Care Progress Note ---
Date of Service July 04, 2024 Assessment & Plan (1) Abdominal pain: Plan: improving with treatment of constipation (2) Chronic pain syndrome: Plan: complex pain from PAD, PVD, spinal stenosis ineffective treatment with escalating oxycodone up to 60-80mg cannot afford oxycontin due to $200 copay Transdermal fentanyl caused hallucinations she had no relief with oral dilaudid in escalating doses she is limited financially she is willing to begin a trial of methadone therefore the following changes were made today and orders written: stop oxycodone begin methadone 5mg po q6h prn moderate or severe pain, Hold for somnolence or RR less than 14; please document RR with each dose administration. I have stopped seroquel given interaction with methadone and ineffectiveness to date; please use prn xanax for insomnia relief. prn IV dilaudid unchanged and pt asked to take oral methadone first before moving to IV will reassess through weekend,methadone changes should not be made any more than q3days, palliative med will manage dose titration thru this admission, please page me for any issues or concerns. her pcp dr woo is willing to continue management of her continue bowel regimen (3) Constipation due to pain medication: (4) Generalized anxiety disorder: (5) PAD (peripheral artery disease): (6) Esophagitis determined by endoscopy: (7) Neural foraminal stenosis of lumbar spine: (8) Palliative care by specialist: Plan: [facility] resources for additional support - pt has admitted to financial and social struggles: [facility] [phone] [facility] [employer]ets [phone] she should be dc with visiting nurse services for ongoing support, medication mgt and personal care assistance. we spoke for some time about disease progression and possible need for future pall med involvement, suggested she see [facility] in [facility] as she is closer to pt home than our clinic. there is also the option of [facility] which offers reduced cost services [employer] may also be an option to help her with mobility devices Plan As above Thank you for allowing us to participate in the ongoing care of this patient. Please page with any additional concerns. Ree Driscoll DNP Director, Palliative Medicine Admission and Anticipated Discharge Date Admission Date: June 20, 2024 Jagdish Ford is resting in bed, tired appearing Had a good family meeting with and my colleague yesterday feels more informed about her vascular disease and notes she had not recognized it was a progressive illness that would worsen over time She reports she is willing to try methadone, we reviewed potential cost will be around $20-aidan per month and she reports this is manageable for her. bowel regimen amplified yesterday and she s feeling better, but notes a lot of BMs. however, abd pain has decreased. denies n/v appetite stable reports she fell yesterday while opening window curtains no LOC, no signif impact, no fracture pain unchanged prior issues with opioids: no signif relief with oxycodone did not tolerate TDf d/t hallucinations morphine gave her oral blisters Review of Systems Review of Systems: All systems reviewed & are unremarkable except as noted in Subjective Physical Exam Constitutional: + ill appearing, + physical limitations and + frail appearing Eyes: PERRLA, EOMi ENMT: Mouth: + dental caries, + poor dentition, + chipped teeth and + loose teeth Neck: trachea midline, no thyromegaly Respiratory: normal respiratory effort, lungs clear to auscultation Cardiovascular: RRR, no murmur, no edema RRR, s1s2 Gastrointestinal (Abdomen): Inspection/Auscultation: abdomen normal to inspection and normal bowel sounds; abdomen not distended Percussion/Palpation: abdomen soft less tenderness Musculoskeletal: Extremities: + limited ROM of extremities and + amputation noted generalized weakness, no focal deficits Skin: no rashes, warm and dry + turgor decreased Neurologic: grossly neurologically intact, no focal deficits noted Psychiatric: Orientation: alert and oriented x 3 Eye Contact: good eye contact Speech: normal rate/rhythm/volume of speech Thought Process: clear/coherent thought process Results & Data Vital Signs (Past 12 Hours) Vital Signs Temp Pulse Pulse Resp BP BP Pulse Ox 07/04/24 07:44 36.6 C 71 18 146/76 H 95 07/03/24 23:00 36.7 C 68 16 121/59 L 94 O2 Del Method 07/04/24 07:44 Room Air 07/03/24 23:00 Room Air PG Care Time/CCT Total # of Minutes Spent Total Time Spent with Patient: Total time spent is greater than 50% in coordination of care (as documented) at patient's floor/unit and/or counseling patient: I spent 70 minutes overall addressing this case: 15 min in medical data review/discussion with referring provider(s) and/or preparation for the visit 10 min in direct interaction with the patient/exam 15 min in Advance Care Planning/Goals of Care discussions as detailed above in note (must be >16min) 20 min in subsequent review and synthesis of assessment and plan incl extensive methadone education 10 min communicating with other providers regarding the patient's case: nursing, primary team C[place] [address] SUB INP/OBS CARE 3/50MIN Patient Type Established History Comprehensive Exam Comprehensive Medical Decision Making High Complexity Diagnoses Abdominal pain R10.9 Chronic pain syndrome G89.4 Constipation due to pain medication K59.03 Generalized anxiety disorder F41.1 PAD (peripheral artery disease) I73.9 Esophagitis determined by endoscopy K20.90 Neural foraminal stenosis of lumbar spine M48.061 Palliative care by specialist Z51.5
[2024-07-04] MEDS: METHADONE HCL 5 MG TAB PO PRN (12:02)
--- NOTE | 2024-07-04 12:53 | Hospitalist Progress Note ---
Date of Service July 04, 2024 Assessment & Plan (1) Abdominal pain: (2) Type 2 diabetes mellitus: (3) Chronic pain syndrome: (4) Iron deficiency anemia: (5) HTN (hypertension): (6) PAD (peripheral artery disease): (7) Esophagitis determined by endoscopy: (8) B12 deficiency: (9) History of tobacco use: (10) Neural foraminal stenosis of lumbar spine: (11) Pneumonia: (12) Constipation due to pain medication: Plan 59-year-old female with past medical history of insulin-dependent type 2 diabetes mellitus, peripheral arterial disease status post right BKA, essential hypertension, chronic pain syndrome on chronic opiates, grade D esophagitis from recent EGD in May 2024, gastroparesis who presented to the ED with vomiting, coughing, fever and chills and was found to have a left lower lobe pneumonia with sepsis #Unwitnessed fall Blood pressure is low, patient had a syncopal episode with dizziness and lightheadedness likely due to hypotension Radiology reviewed: No evidence of fracture or dislocation on x-ray as noted Hold antihypertensives IV Dilaudid also causing hypotension: Hold IV Dilaudid if systolic blood pressure less than 105: This was discussed with patient IV fluid 500 mL bolus Monitor orthostatic vital signs #Left lower lobe pneumonia admission chest x-ray with left lower lobe pneumonia versus atelectasis, completed course of oral doxycycline. continues to feel ill and continues to have productive cough with greenish and blackish sputum. repeat chest x-ray 06/27 With new right basilar infiltrate and increased left basilar infiltrate compared to admission levofloxacin 750 mg p.o. x 5 days for pneumonia and patient finish 5 days of treatment on 07/01/2024 - sputum culture ordered but not submitted - CTA chest 06/30 no PE, pleural effusion or pneumonia #Epigastric pain #Chronic pain syndrome #Recent hematemesis: Resolved #Iron deficiency anemia with superimposed B12 deficiency #Constipation likely related to opiates Patient was seen by GI for hematemesis She had a recent EGD in May 2024 which showed grade D esophagitis GI did not recommend endoscopy at this point and recommended treating with PPI: She was initially treated with IV PPI which is being changed to oral PPI H&H is stable Continue B12 supplementation Patient is on chronic opiates at home Palliative care is following with her regarding pain management Palliative care stopped oxycodone and switch patient to methadone after talking to her and have recommended continuing IV Dilaudid for now Patient aware that if systolic blood pressures less than 105, IV Dilaudid will not be given as it can cause hypotension Patient has epigastric pain which is different from her chronic pain White count and lactate levels are normal CTA of the abdomen pelvis from 07/01/2024 shows mild atheromatous plaque within the SMA, no flow-limiting stenosis. No significant plaque within the celiac artery. Plaque within the right common and right external iliac arteries causing moderate to severe stenosis. Severe stenosis in the proximal SFA. Moderate to severe stenosis in the proximal left SFA. Excess stool throughout the colon consistent with constipation. No inflammatory changes or evidence of mesenteric ischemia Patient to follow-up with her vascular surgeon Dr. Fuentes as outpatient regarding severe stenosis which is chronic in nature Bowel regiment: Continue MiraLAX twice a day, senna twice a day, Linzess daily Vitamin B1 levels pending #Anxiety/depression Awaiting psychiatry consult Palliative care stop Seroquel since they are starting methadone Continue duloxetine Xanax as needed #Insulin-dependent type 2 diabetes mellitus with diabetic neuropathy A1c 7.1 (06/03/2024) Continue Lantus 5 units subcutaneous twice daily Accu-Cheks before every meal and nightly sliding scale insulin coverage Continue Lyrica 100 mg p.o. 3 times daily Monitor glycemic control #Essential hypertension #Peripheral arterial disease #Nonobstructive coronary disease Hold hydralazine, lisinopril and nifedipine in light of hypotension causing dizziness and fall Reduce clonidine to 0.1 mg p.o. twice daily with hold parameters Continue Toprol-XL with hold parameters Continue aspirin and Plavix Monitor vital signs: Orthostatic vital signs IV fluid hydration with normal saline x 1 L CODE STATUS: Full code DVT prophylaxis: Bilateral SCD. Patient also on aspirin and Plavix. She bled while being on heparin subcutaneous for DVT prophylaxis Care plan discussed with patient, nursing staff and palliative care team Admission and Anticipated Discharge Date Admission Date: June 20, 2024 Subjective Patient states she feels much better with her abdominal pain after having multiple bowel movements She reports improvement in her appetite She is still orthostatic on vital signs but states dizziness and lightheadedness have improved She denies any fever, chills, cough She met with palliative care today and is open to trying methadone Awaiting psychiatry consult Physical Exam Physical Exam: General: No acute distress Psych: Awake and alert HEENT: Anicteric sclera, moist oral mucosa CVS: Regular rate and rhythm Lungs: Bilateral air entry, no wheezing noted Abdomen: Soft, epigastric tenderness to palpation, no rebound, no guarding, left abdominal wall abrasion noted Ext: No lower extremity edema, no calf tenderness, right BKA noted. Left foot dorsum wound in dressing, right elbow traumatic wound noted in dressing, no bleeding noted. Results & Data Results & Data Vital Signs (Past 12 Hours) Vital Signs Temp Pulse Resp BP Pulse Ox O2 Del Method 07/04/24 12:02 16 07/04/24 07:44 36.6 C 71 18 146/76 H 95 Room Air Laboratory Results Laboratory Results - last 24 hr 07/03/24 07/03/24 07/04/24 16:27 20:34 07:27 WBC RBC Hgb Hct MCV MCH MCHC RDW Std Deviation RDW Coeff of Maria Del Carmen Plt Count MPV Sodium Potassium Chloride Carbon Dioxide Anion Gap BUN Creatinine Est Cr Clr Drug Dosing eGFR BUN/Creatinine Ratio Glucose POC Glucose 122 H 93 112 H Calcium Magnesium 07/04/24 07/04/24 09:35 11:33 WBC 12.64 H RBC 4.27 Hgb 10.0 L Hct 33.4 L MCV 78.2 L MCH 23.4 L MCHC 29.9 L RDW Std Deviation 47.7 H RDW Coeff of Maria Del Carmen 16.7 H Plt Count 251 MPV 10.6 Sodium 135 L Potassium 4.6 Chloride 102 Carbon Dioxide 28 Anion Gap 5 BUN 24 H Creatinine 0.56 L Est Cr Clr Drug Dosing 92.3 eGFR 104.42 BUN/Creatinine Ratio 42.9 H Glucose 131 H POC Glucose 96 Calcium 9.0 Magnesium 2.4 PG Care Time/CCT Total # of Minutes Spent Total Time Spent with Patient: Total time spent is greater than 50% in coordination of care (as documented) at patient's floor/unit and/or counseling patient: Coding Level of Care Code 92400 SUB INP/OBS CARE 3/50MIN Diagnoses Abdominal pain R10.9 Type 2 diabetes mellitus E11.69; Z79.4 Diabetes mellitus complication status: with other specified complication Diabetes mellitus air cargo specialist insulin use: with air cargo specialist use Chronic pain syndrome G89.4 Iron deficiency anemia D50.9 HTN (hypertension) I10 PAD (peripheral artery disease) I73.9 Esophagitis determined by endoscopy K20.90 B12 deficiency E53.8 History of tobacco use Z87.891 Neural foraminal stenosis of lumbar spine M48.061 Pneumonia J18.9 Laterality: left Lung location: lower lobe of lung Pneumonia type: due to unspecified organism Constipation due to pain medication K59.03 (2) Type 2 diabetes mellitus Diabetes mellitus complication status: with other specified complication Diabetes mellitus air cargo specialist insulin use: with longterm use Qualified Code(s): E11.69 - Type 2 diabetes mellitus with other specified complication; Z79.4 - FPC (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
--- NOTE | 2024-07-04 14:17 | Psychiatric Consultation ---
Date of Consultation July 04, 2024 Impression / Recommendations Impression Presentation consistent with generalized anxiety disorder and depression. She presents anxious ruminations impacting sleep and daily function. Medications reviewed with the patient and evaluated for medication interactions with psychotropics. We will recommend addition of low-dose Abilify for SSRI augmentation and anxiety control. She is interested in outpatient counseling and would write recommend a remote option. She presents no acute safety concerns and is future oriented. Overall, I spent a total of 45 minutes with this case including review of chart records, nursing report, review of lab work, direct evaluation of the patient at bedside, counseling the patient, discussion of the patient with the hospitalist provider, discussion with the psychiatric liaison during clinical rounds, and documentation in the electronic health record. (1) Generalized anxiety disorder: (2) Depression: Plan Start Abilify 2.5 mg daily - Continue home duloxetine, quetiapine Establish outpatient counseling No indication for bedside sitter Psych History Identifying Data 59 F h/o multiple medical comorbidities including chronic pain, leg amputation, depression, anxiety. Psychiatry consulted for evaluation and recommendations. Chief Complaint "Upset with the world" History of Present Illness Patient reports a loss of independence. Says she is frustrated that her family is always trying to help her and that she wants to try to do things by herself. Says that she has "good days and bad days" and it is "50-50". Says on the bad days she is crying and often wonders why this has happened to her. She ruminates and it is hard to stop this line of thinking. She reports anxiety impacts her ability to fall and stay asleep she is constantly thinking about her worries. She denies SI and HI. She is open to counseling. Allergies Allergy/AdvReac Type Severity Reaction Status Date / Time morphine Allergy Severe blisters Verified 02/10/24 22:40 in mouth Sulfa (Sulfonamide Allergy Severe rash/swelli Verified 02/10/24 22:40 Antibiotics) ng amoxicillin [From Augmentin] Allergy Intermediate itching/power Verified 02/10/24 22:40 h ceftriaxone [From Rocephin] Allergy Intermediate Hives Verified 02/10/24 22:40 clavulanic acid Allergy Intermediate itching/power Verified 02/10/24 22:40 [From Augmentin] h erythromycin base Allergy Intermediate Hives Verified 02/10/24 22:40 vancomycin Allergy Intermediate YULIYA Verified 02/10/24 22:40 SYNDROME---CAN TAKE IF VERY SLOW DRIP. adhesive AdvReac Intermediate DERMABOND Verified 02/10/24 22:40 excoriates skin gabapentin AdvReac Intermediate Nausea Verified 02/10/24 22:40 iron [From Venofer] AdvReac Intermediate Hypertensio Verified 02/10/24 22:40 n Home Medications Medication Instructions Recorded Confirmed Type insulin glargine 100 unit/mL (3 10 unit subcut HS 10/17/22 06/02/24 History mL) subcutaneous pen (Lantus Solostar U-100 Insulin) albuterol sulfate 90 mcg/actuation 2 puff inhalation QID PRN 05/08/23 06/02/24 History aerosol inhaler Shortness Of Breath Or Wheezing alprazolam 1 mg tablet 1 mg PO TID PRN Anxiety 05/08/23 06/02/24 History docusate sodium 100 mg capsule 100 mg PO BID 05/08/23 06/02/24 History metoprolol succinate 50 mg 50 mg PO QAM 05/08/23 06/02/24 History tablet,extended release 24 hr (Toprol XL) clopidogrel 75 mg tablet (Plavix) 75 mg PO DAILY #30 tabs 05/10/23 06/02/24 Rx prochlorperazine maleate 5 mg 5 mg PO TID PRN Nausea 06/13/23 06/02/24 History tablet aspirin 81 mg tablet,delayed 81 mg PO DAILY 09/19/23 06/02/24 History release hydralazine 25 mg tablet 25 mg PO TID 09/19/23 06/02/24 History nifedipine 60 mg tablet,extended 120 mg PO DAILY 09/19/23 06/02/24 History release 24 hr lidocaine 5 % topical patch 1 patch transdermal QAM #14 ea 12/13/23 06/02/24 Rx clonidine HCl 0.1 mg tablet 0.1 mg PO Q8H #90 tabs 04/03/24 06/02/24 Rx cyanocobalamin (vitamin B-12) 500 1,000 mcg (2 x 500 mcg) PO QAM #30 04/03/24 06/02/24 Rx mcg tablet tabs naloxone 4 mg/actuation nasal spray 4 mg intranasal ONCE PRN opioid 04/03/24 06/02/24 Rx overdose #2 ea polyethylene glycol 3350 17 gram 17 g PO BID #0 ea 04/03/24 06/02/24 Rx oral powder packet (Miralax) pregabalin 100 mg capsule (Lyrica) 100 mg PO TID #90 caps 04/03/24 06/02/24 Rx sennosides 8.6 mg tablet (Senokot) 17.2 mg (2 x 8.6 mg) PO BID PRN 04/03/24 06/02/24 Rx constipation #60 tabs duloxetine 60 mg capsule,delayed 60 mg PO DAILY 06/02/24 06/02/24 History release insulin aspart 5 unit subcut TIDM 06/02/24 06/02/24 History (niacinamide)(U-100) 100 unit/mL(3 mL) subcutaneous pen (Fiasp FlexTouch U-100 Insulin) lisinopril 20 mg tablet 20 mg PO DAILY 06/02/24 06/02/24 History quetiapine 50 mg tablet 50 mg PO HS 06/02/24 06/02/24 History ropinirole 4 mg tablet 8 mg PO HS 06/02/24 06/02/24 History sucralfate 100 mg/mL oral 1 g (10 mL) PO ACHS #200 mL 06/05/24 Rx suspension (Carafate) oxycodone 20 mg tablet 20 mg PO Q6H PRN pain #12 tabs 06/11/24 Rx rabeprazole 20 mg tablet,delayed 20 mg PO DAILY 8 weeks #56 tabs 06/11/24 Rx release doxycycline hyclate 100 mg capsule 100 mg PO BID #14 caps 06/23/24 Rx Patient History Medical History GERD (gastroesophageal reflux disease) Amputation of left great toe Poor venous access Hyponatremia Intractable neuropathic pain of left lower extremity Gastroparesis Leukocytosis Chronic pain Insomnia HTN (hypertension) PAD (peripheral artery disease) Hypertension Groin pain Foot pain Infection of left great toe due to methicillin resistant Staphylococcus aureus (MRSA) Diastolic CHF COVID-19 Osteomyelitis of great toe of left foot Opiate dependence Opiate abuse, continuous Acidosis, lactic Acute dehydration Gastroenteritis Sepsis Shortness of breath Opioid dependence Insomnia 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 No issues per anesthesia postop progress note. Anemia Hyponatremia Cellulitis Peripheral neuropathy Benzodiazepine withdrawal Right second toe ulcer Diabetes mellitus type 2, uncontrolled Hyperlipidemia Seizures Gastritis Numbness of lower extremity Hypertriglyceridemia CAD (coronary artery disease) History of tobacco use Benzodiazepine dependence Diabetic neuropathy Abdominal pain Gastroparesis Esophagitis determined by endoscopy GIB (gastrointestinal bleeding) Insulin dependent diabetes mellitus DM2 (diabetes mellitus, type 2) IDDM, A1c 07/2021-11% Surgical History History of lumbar fusion L5-S1 from 2004, [place] History of lumbar surgery History of esophagogastroduodenoscopy (EGD) Family History Mother , age 63 Myocardial infarction Father , age 68 or 69 Myocardial infarction Brother S/P CABG (coronary artery bypass graft) Sister Myocardial infarction x 3; she is 57yo Social History Smoking Status: Former smoker Tobacco Type: Cigarettes packs per day: 0.5; Second Hand Exposure: No; Do You Dip or Chew Tobacco: No; Tobacco Cessation Education Requested by Patient: No Hx Alcohol Use: No Hx Substance Use: Yes Prescribed Medications: Marijuana Last Used Substance: Unknown Last Used Substance Other:: Medical marijuana Substance Use Type Other:: Medical marijuana Preferred Language: Burundian Communication Ability: Effective Visual Impairment: No Limitations Hearing Ability: Normal Cable Systems Installer Required: No Beliefs That Will Affect Care: None marital status: Current Living Situation: Spouse Current Living Situation Comment: lives at home with current occupational status: unemployed 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 Other Information That Helps Us Care for You: No other: raising a grandchild as well; lives in [place] Feels Safe at Home: Yes Safety Concerns: Feels Safe At This Time and Afraid for Self Diet: diabetic and low salt during the past year weight has: remained stable Assistive Devices: Walker and Wheelchair Physical Exam Mental Examination: Appearance: Unkempt (poor dentition) Eye Contact: Maintains Eye Contact Motor Behavior: Unremarkable Speech: Normal Mood: Euthymic and Calm Affect: Appropriate and Congruent Thought Process: Intact and Linear Thought Content: Intact Hallucinations: None Insight: Fair Judgement: Poor (to limited) Vital Signs (Past 24 Hours): Last Vital Signs Temp 36.6 C 07/04/24 07:44 Pulse 71 07/04/24 07:44 Resp 16 07/04/24 12:02 BP 146/76 H 07/04/24 07:44 Pulse Ox 95 07/04/24 07:44 O2 Del Method Room Air 07/04/24 07:44 Results & Data (PSY) Medications Administered Acetaminophen (Acetaminophen 325 Mg Tab) 650 mg PO Q4H PRN PRN Reason: pain/fever Stop: 07/20/24 00:39 Last Admin: 06/24/24 11:08 Dose: 650 mg Documented By: Admin: 06/21/24 14:46 Dose: 650 mg Documented By: JEROD Albuterol (Albut/Ipratrop 3mg/0.5mg Neb 3 Ml Vial) 3 ml NEB Q6R PRN; Protocol PRN Reason: Shortness Of Breath Or Wheezing Stop: 07/20/24 02:31 Last Admin: 06/29/24 06:26 Dose: 3 ml Documented By: Admin: 06/20/24 15:04 Dose: 3 ml Documented By: Admin: 06/20/24 07:29 Dose: 3 ml Documented By: CARLOS Alprazolam (Alprazolam 0.5 Mg Tablet) 1 mg PO Q8H PRN PRN Reason: anxiety,insomnia Stop: 08/01/24 11:46 Last Admin: 07/03/24 21:20 Dose: 1 mg Documented By: Admin: 07/02/24 11:59 Dose: 1 mg Documented By: SERAFIN Aspirin (Aspirin 81 Mg Ectab) [facility] Stop: 07/30/24 08:59 Last Admin: 07/04/24 08:11 Dose: 81 mg Documented By: Admin: 07/03/24 08:46 Dose: 81 mg Documented By: Admin: 07/02/24 08:44 Dose: 81 mg Documented By: Admin: 07/01/24 07:57 Dose: 81 mg Documented By: Admin: 06/30/24 08:30 Dose: 81 mg Documented By: LAURA Bisacodyl (Bisacodyl 10 Mg Supp) 10 mg [place] DAILY RICKY Stop: 07/05/24 09:01 Last Admin: 07/04/24 08:12 Dose: Not Given Documented By: VG Clonidine HCl (Clonidine Hcl 0.1 Mg Tab) 0.1 mg PO BID RICKY Stop: 08/02/24 20:59 Last Admin: 07/04/24 09:40 Dose: Not Given Documented By: Admin: 07/03/24 23:24 Dose: Not Given Documented By: YOKO Clopidogrel Bisulfate (Clopidogrel Bisulfate 75 Mg Tab) 75 mg PO DAILY RICKY Stop: 07/20/24 08:59 Last Admin: 07/04/24 08:12 Dose: 75 mg Documented By: Admin: 07/03/24 08:46 Dose: 75 mg Documented By: Admin: 07/02/24 08:46 Dose: 75 mg Documented By: Admin: 07/01/24 07:55 Dose: 75 mg Documented By: Admin: 06/30/24 08:29 Dose: 75 mg Documented By: Admin: 06/29/24 08:54 Dose: 75 mg Documented By: Admin: 06/28/24 08:52 Dose: 75 mg Documented By: Admin: 06/27/24 08:42 Dose: 75 mg Documented By: Admin: 06/26/24 10:48 Dose: 75 mg Documented By: Admin: 06/25/24 08:51 Dose: 75 mg Documented By: Admin: 06/24/24 08:18 Dose: 75 mg Documented By: Admin: 06/23/24 08:23 Dose: 75 mg Documented By: Admin: 06/22/24 08:01 Dose: 75 mg Documented By: Admin: 06/21/24 08:43 Dose: 75 mg Documented By: Admin: 06/20/24 09:14 Dose: 75 mg Documented By: AV Cyanocobalamin (Cyanocobalamin (B-12) 500 Mcg Tablet) 1,000 mcg PO QAM RICKY Stop: 07/20/24 08:59 Last Admin: 07/04/24 08:12 Dose: 1,000 mcg Documented By: Admin: 07/03/24 08:46 Dose: 1,000 mcg Documented By: Admin: 07/02/24 08:46 Dose: 1,000 mcg Documented By: Admin: 07/01/24 07:56 Dose: 1,000 mcg Documented By: Admin: 06/30/24 08:29 Dose: 1,000 mcg Documented By: Admin: 06/29/24 08:51 Dose: 1,000 mcg Documented By: Admin: 06/28/24 08:51 Dose: 1,000 mcg Documented By: Admin: 06/27/24 08:42 Dose: 1,000 mcg Documented By: Admin: 06/26/24 10:47 Dose: 1,000 mcg Documented By: Admin: 06/25/24 08:51 Dose: 1,000 mcg Documented By: Admin: 06/24/24 08:17 Dose: 1,000 mcg Documented By: Admin: 06/23/24 08:23 Dose: 1,000 mcg Documented By: Admin: 06/22/24 08:02 Dose: 1,000 mcg Documented By: Admin: 06/21/24 08:43 Dose: 1,000 mcg Documented By: Admin: 06/20/24 09:14 Dose: 1,000 mcg Documented By: AV Docusate Sodium (Docusate Sodium 100 Mg Cap) 100 mg PO BID RCIKY Stop: 07/20/24 08:59 Last Admin: 07/04/24 08:20 Dose: 100 mg Documented By: Admin: 07/03/24 21:08 Dose: Not Given Documented By: Admin: 07/03/24 08:45 Dose: 100 mg Documented By: Admin: 07/02/24 21:50 Dose: 100 mg Documented By: Admin: 07/02/24 08:55 Dose: 100 mg Documented By: Admin: 07/01/24 20:21 Dose: 100 mg Documented By: Admin: 07/01/24 07:54 Dose: 100 mg Documented By: Admin: 06/30/24 20:52 Dose: 100 mg Documented By: Admin: 06/30/24 08:43 Dose: 100 mg Documented By: Admin: 06/29/24 19:24 Dose: 100 mg Documented By: Admin: 06/29/24 09:01 Dose: Not Given Documented By: Admin: 06/28/24 20:00 Dose: 100 mg Documented By: Admin: 06/28/24 08:58 Dose: 100 mg Documented By: Admin: 06/27/24 20:18 Dose: 100 mg Documented By: Admin: 06/27/24 09:09 Dose: 100 mg Documented By: Admin: 06/26/24 21:16 Dose: 100 mg Documented By: Admin: 06/26/24 08:59 Dose: 100 mg Documented By: Admin: 06/25/24 21:01 Dose: 100 mg Documented By: Admin: 06/25/24 08:41 Dose: 100 mg Documented By: Admin: 06/24/24 19:53 Dose: 100 mg Documented By: Admin: 06/24/24 08:28 Dose: 100 mg Documented By: Admin: 06/23/24 20:26 Dose: 100 mg Documented By: Admin: 06/23/24 08:36 Dose: 100 mg Documented By: Admin: 06/22/24 19:31 Dose: 100 mg Documented By: Admin: 06/22/24 07:59 Dose: 100 mg Documented By: Admin: 06/21/24 21:23 Dose: 100 mg Documented By: Admin: 06/21/24 08:42 Dose: 100 mg Documented By: Admin: 06/20/24 20:32 Dose: 100 mg Documented By: Admin: 06/20/24 09:17 Dose: 100 mg Documented By: AV Duloxetine HCl (Duloxetine Hcl 60 Mg Cap) 60 mg PO DAILY RICKY Stop: 07/20/24 08:59 Last Admin: 07/04/24 08:12 Dose: 60 mg Documented By: Admin: 07/03/24 08:47 Dose: 60 mg Documented By: Admin: 07/02/24 08:46 Dose: 60 mg Documented By: Admin: 07/01/24 07:56 Dose: 60 mg Documented By: Admin: 06/30/24 08:30 Dose: 60 mg Documented By: Admin: 06/29/24 08:55 Dose: 60 mg Documented By: Admin: 06/28/24 08:51 Dose: 60 mg Documented By: Admin: 06/27/24 08:43 Dose: 60 mg Documented By: Admin: 06/26/24 10:48 Dose: 60 mg Documented By: Admin: 06/25/24 08:53 Dose: 60 mg Documented By: Admin: 06/24/24 08:19 Dose: 60 mg Documented By: Admin: 06/23/24 08:23 Dose: 60 mg Documented By: Admin: 06/22/24 08:02 Dose: 60 mg Documented By: Admin: 06/21/24 08:43 Dose: 60 mg Documented By: Admin: 06/20/24 09:16 Dose: 60 mg Documented By: AV Hydromorphone HCl (Hydromorphone Inj 1 Mg/Ml Syringe) 1 mg IV Q3H PRN PRN Reason: Breakthrough Pain Stop: 07/09/24 12:15 Last Admin: 07/04/24 13:19 Dose: 1 mg Documented By: Admin: 07/04/24 10:18 Dose: 1 mg Documented By: Admin: 07/04/24 07:07 Dose: 1 mg Documented By: Admin: 07/04/24 02:35 Dose: 1 mg Documented By: Admin: 07/03/24 23:25 Dose: 1 mg Documented By: Admin: 07/03/24 18:48 Dose: 1 mg Documented By: Admin: 07/03/24 14:39 Dose: 1 mg Documented By: Admin: 07/03/24 10:35 Dose: 1 mg Documented By: Admin: 07/03/24 05:43 Dose: 1 mg Documented By: Admin: 07/02/24 23:27 Dose: 1 mg Documented By: Admin: 07/02/24 18:43 Dose: 1 mg Documented By: Admin: 07/02/24 13:23 Dose: 1 mg Documented By: Admin: 07/02/24 09:28 Dose: 1 mg Documented By: Admin: 07/02/24 05:22 Dose: 1 mg Documented By: Admin: 07/02/24 01:08 Dose: 1 mg Documented By: Admin: 07/01/24 20:24 Dose: 1 mg Documented By: Admin: 07/01/24 16:48 Dose: 1 mg Documented By: ROYAR Co-signed By: WENDY Admin: 07/01/24 12:56 Dose: 1 mg Documented By: KAYCE Prochlorperazine 5 mg/ Syringe 5 mls @ 5 mls/min IV Q6H PRN PRN Reason: Nausea And Vomiting Stop: 07/27/24 18:30 Last Admin: 07/03/24 21:27 Dose: 5 mls/min Documented By: Admin: 07/02/24 12:52 Dose: 5 mls/min Documented By: Admin: 07/01/24 08:30 Dose: 5 mls/min Documented By: Admin: 06/30/24 13:10 Dose: 5 mls/min Documented By: Admin: 06/30/24 04:52 Dose: 5 mls/min Documented By: Admin: 06/29/24 12:00 Dose: 5 mls/min Documented By: Admin: 06/29/24 00:09 Dose: 5 mls/min Documented By: Admin: 06/28/24 04:33 Dose: 5 mls/min Documented By: HRB Insulin Aspart (Insulin Aspart Per Unit Charge) 0 units SC ACHS [facility] Stop: 07/20/24 07:29 Last Admin: 07/04/24 12:45 Dose: Not Given Documented By: Admin: 07/04/24 09:29 Dose: 3 units Documented By: NIKKIE Co-signed By: RT Admin: 07/03/24 21:14 Dose: Not Given Documented By: Admin: 07/03/24 17:26 Dose: 4 units Documented By: ANASTASIIA Co-signed By: RB Admin: 07/03/24 12:56 Dose: 2 units Documented By: SERAFIN Co-signed By: RB Admin: 07/03/24 09:24 Dose: Not Given Documented By: Admin: 07/02/24 21:52 Dose: 2 units Documented By: PNM Co-signed By: JJ Admin: 07/02/24 17:29 Dose: 2 units Documented By: KS Co-signed By: RB Admin: 07/02/24 12:58 Dose: 2 units Documented By: KS Co-signed By: KD Admin: 07/02/24 08:56 Dose: 3 units Documented By: KS Co-signed By: RB Admin: 07/01/24 20:31 Dose: Not Given Documented By: Admin: 07/01/24 17:29 Dose: 4 units Documented By: LNR Co-signed By: EW Admin: 07/01/24 12:57 Dose: 3 units Documented By: EW Co-signed By: DMH Admin: 07/01/24 08:23 Dose: 2 units Documented By: EW Co-signed By: DMH Admin: 06/30/24 21:08 Dose: 1 units Documented By: RES Co-signed By: TKB Admin: 06/30/24 18:29 Dose: Not Given Documented By: Admin: 06/30/24 13:00 Dose: Not Given Documented By: Admin: 06/30/24 08:42 Dose: 4 units Documented By: EA Co-signed By: SLH Admin: 06/29/24 21:11 Dose: Not Given Documented By: RES Co-signed By: MPS Admin: 06/29/24 17:33 Dose: 3 units Documented By: GIOVANI Co-signed By: SJR Admin: 06/29/24 12:27 Dose: 3 units Documented By: DLS Co-signed By: SJR Admin: 06/29/24 09:11 Dose: 3 units Documented By: DLS Co-signed By: KD Admin: 06/28/24 20:21 Dose: Not Given Documented By: RES Co-signed By: HFW Admin: 06/28/24 17:27 Dose: 2 units Documented By: KD Co-signed By: AMS Admin: 06/28/24 12:52 Dose: 3 units Documented By: KD Co-signed By: KS Admin: 06/28/24 08:54 Dose: 2 units Documented By: KD Co-signed By: SJR Admin: 06/27/24 20:20 Dose: Not Given Documented By: HFW Co-signed By: HRB Admin: 06/27/24 17:50 Dose: 3 units Documented By: LMM Co-signed By: HEL Admin: 06/27/24 12:04 Dose: 3 units Documented By: LMM Co-signed By: HEL Admin: 06/27/24 08:56 Dose: 3 units Documented By: LMM Co-signed By: HEL Admin: 06/26/24 21:20 Dose: Not Given Documented By: ELS Co-signed By: GH Admin: 06/26/24 17:25 Dose: 2 units Documented By: EDH Co-signed By: MK Admin: 06/26/24 12:42 Dose: 3 units Documented By: EDH Co-signed By: EDWIN Admin: 06/26/24 08:52 Dose: 2 units Documented By: EDH Co-signed By: JKM Admin: 06/25/24 21:36 Dose: Not Given Documented By: Admin: 06/25/24 17:37 Dose: 3 units Documented By: EDH Co-signed By: SHIVA Admin: 06/25/24 13:29 Dose: 1 units Documented By: EDH Co-signed By: MK Admin: 06/25/24 08:47 Dose: Not Given Documented By: Admin: 06/24/24 21:34 Dose: 1 units Documented By: MNO Co-signed By: YOKO Admin: 06/24/24 17:23 Dose: 4 units Documented By: VIRGIE Co-signed By: ERNIE Admin: 06/24/24 12:43 Dose: 1 units Documented By: VIRGIE Co-signed By: CWR Admin: 06/24/24 08:29 Dose: 1 units Documented By: VIRGIE Co-signed By: CWR Admin: 06/23/24 21:21 Dose: Not Given Documented By: Admin: 06/23/24 17:37 Dose: 2 units Documented By: DMH Co-signed By: ADB Admin: 06/23/24 12:49 Dose: Not Given Documented By: THELMA Co-signed By: CWR Admin: 06/23/24 08:36 Dose: 2 units Documented By: DMColt Co-signed By: CWR Admin: 06/22/24 21:25 Dose: 1 units Documented By: RES Co-signed By: BLM Admin: 06/22/24 17:18 Dose: Not Given Documented By: Admin: 06/22/24 12:48 Dose: 2 units Documented By: CMV Co-signed By: ADB Admin: 06/22/24 08:14 Dose: 2 units Documented By: CMV Co-signed By: RRD Admin: 06/21/24 21:24 Dose: 1 units Documented By: RES Co-signed By: AJD Admin: 06/21/24 17:24 Dose: 1 units Documented By: CWR Co-signed By: RLPepito Admin: 06/21/24 12:33 Dose: Not Given Documented By: Admin: 06/21/24 09:26 Dose: Not Given Documented By: Admin: 06/20/24 20:57 Dose: Not Given Documented By: RES Co-signed By: ADAM(2) Admin: 06/20/24 17:51 Dose: 2 units Documented By: TONY Co-signed By: LAURA Admin: 06/20/24 12:43 Dose: 3 units Documented By: TONY Co-signed By: JENNIFER Admin: 06/20/24 09:13 Dose: 2 units Documented By: TONY Co-signed By: YOHANNES Insulin Glargine (Lantus Per Unit Charge) 5 units SQ BID RICKY Stop: 07/20/24 08:59 Last Admin: 07/04/24 09:28 Dose: 5 units Documented By: KIRTH Co-signed By: RT Admin: 07/03/24 21:20 Dose: 5 units Documented By: YOOK Co-signed By: ISA Admin: 07/03/24 09:24 Dose: 5 units Documented By: KS Co-signed By: BINA Admin: 07/02/24 21:51 Dose: 5 units Documented By: PNM Co-signed By: JJ Admin: 07/02/24 08:56 Dose: 5 units Documented By: KS Co-signed By: RB Admin: 07/01/24 20:36 Dose: 5 units Documented By: ADAM Co-signed By: YASH Admin: 07/01/24 08:25 Dose: 5 units Documented By: KAYCE Co-signed By: DMH Admin: 06/30/24 21:08 Dose: 5 units Documented By: RES Co-signed By: TKB Admin: 06/30/24 08:42 Dose: 5 units Documented By: LAURA Co-signed By: SLH Admin: 06/29/24 21:10 Dose: 5 units Documented By: RES Co-signed By: MPS Admin: 06/29/24 09:10 Dose: 5 units Documented By: GIOVANI Co-signed By: BINA Admin: 06/28/24 20:21 Dose: 5 units Documented By: RES Co-signed By: VANESSA Admin: 06/28/24 08:55 Dose: 5 units Documented By: BINA Co-signed By: NIRANJANR Admin: 06/27/24 20:17 Dose: 5 units Documented By: HFW Co-signed By: JULIA Admin: 06/27/24 08:56 Dose: 5 units Documented By: BARBRA Co-signed By: HEL Admin: 06/26/24 21:20 Dose: 5 units Documented By: EULALIO Co-signed By: GH Admin: 06/26/24 08:57 Dose: 5 units Documented By: JEANNE Co-signed By: EDWIN Admin: 06/25/24 21:36 Dose: 5 units Documented By: HELEN Co-signed By: YASH Admin: 06/25/24 08:41 Dose: 5 units Documented By: JEANNE Co-signed By: SHIVA Admin: 06/24/24 21:34 Dose: 5 units Documented By: GILLIAN Co-signed By: YOKO Admin: 06/24/24 08:29 Dose: 5 units Documented By: VIRGIE Co-signed By: JEROD Admin: 06/23/24 21:21 Dose: 5 units Documented By: EDWIN Co-signed By: SHERI Admin: 06/23/24 08:37 Dose: 5 units Documented By: THELMA Co-signed By: JEROD Admin: 06/22/24 21:25 Dose: 5 units Documented By: RES Co-signed By: BLM Admin: 06/22/24 08:15 Dose: 5 units Documented By: CMV Co-signed By: RRAdeel Admin: 06/21/24 21:24 Dose: 5 units Documented By: YASH Co-signed By: MONSTER Admin: 06/21/24 09:21 Dose: 5 units Documented By: JEROD Co-signed By: JOSI Admin: 06/20/24 20:57 Dose: 5 units Documented By: RES Co-signed By: ADAM(2) Admin: 06/20/24 09:13 Dose: 5 units Documented By: TONY Co-signed By: YOHANNES Lidocaine (Lidocaine 5% 1 Patch) 1 patch TD QAM [facility] Stop: 07/20/24 08:59 Last Admin: 07/04/24 08:13 Dose: 1 patch Documented By: Admin: 07/03/24 07:27 Dose: 1 patch Documented By: Admin: 07/02/24 08:14 Dose: 1 patch Documented By: Admin: 07/01/24 07:58 Dose: 1 patch Documented By: Admin: 06/30/24 08:33 Dose: 1 patch Documented By: Admin: 06/29/24 08:52 Dose: 1 patch Documented By: Admin: 06/28/24 08:52 Dose: 1 patch Documented By: Admin: 06/27/24 08:48 Dose: 1 patch Documented By: Admin: 06/26/24 10:48 Dose: 1 patch Documented By: Admin: 06/25/24 08:54 Dose: 1 patch Documented By: Admin: 06/24/24 08:19 Dose: 1 patch Documented By: Admin: 06/23/24 08:23 Dose: 1 patch Documented By: Admin: 06/22/24 07:59 Dose: 1 patch Documented By: Admin: 06/21/24 08:44 Dose: 1 patch Documented By: Admin: 06/20/24 09:15 Dose: 1 patch Documented By: TONY Linaclotide (Linaclotide 72 Mcg Capsule) 72 mcg PO DAILY RICKY Stop: 07/08/24 11:14 Last Admin: 07/04/24 08:20 Dose: 72 mcg Documented By: [facility] Admin: 07/03/24 12:38 Dose: 72 mcg Documented By: SERAFIN Lisinopril (Lisinopril 20 Mg Tab) 20 mg PO DAILY RICKY Stop: 07/20/24 08:59 Last Admin: 07/03/24 07:55 Dose: Not Given Documented By: Admin: 07/02/24 08:46 Dose: 20 mg Documented By: Admin: 07/01/24 07:55 Dose: 20 mg Documented By: Admin: 06/30/24 08:30 Dose: 20 mg Documented By: Admin: 06/29/24 08:51 Dose: 20 mg Documented By: Admin: 06/28/24 08:52 Dose: 20 mg Documented By: Admin: 06/27/24 08:43 Dose: 20 mg Documented By: Admin: 06/26/24 10:49 Dose: 20 mg Documented By: EDColt Admin: 06/25/24 08:55 Dose: 20 mg Documented By: Admin: 06/24/24 08:17 Dose: 20 mg Documented By: Admin: 06/23/24 08:23 Dose: 20 mg Documented By: Admin: 06/22/24 08:01 Dose: 20 mg Documented By: Admin: 06/21/24 08:42 Dose: 20 mg Documented By: Admin: 06/20/24 09:15 Dose: 20 mg Documented By: AV Magnesium Oxide (Magnesium Oxide 400 Mg Tab) 400 mg PO QPM RICKY Stop: 07/31/24 20:59 Last Admin: 07/03/24 21:11 Dose: 400 mg Documented By: Admin: 07/02/24 21:47 Dose: 400 mg Documented By: Admin: 07/01/24 20:22 Dose: 400 mg Documented By: ADAM Melatonin (Melatonin 3 Mg Tab) 3 mg PO HS PRN PRN Reason: Insomnia Stop: 07/20/24 00:39 Last Admin: 07/03/24 21:09 Dose: 3 mg Documented By: Admin: 06/30/24 20:52 Dose: 3 mg Documented By: Admin: 06/29/24 19:33 Dose: 3 mg Documented By: Admin: 06/27/24 20:43 Dose: 3 mg Documented By: Admin: 06/26/24 21:16 Dose: 3 mg Documented By: Admin: 06/25/24 21:01 Dose: 3 mg Documented By: Admin: 06/22/24 21:25 Dose: 3 mg Documented By: Admin: 06/20/24 03:11 Dose: 3 mg Documented By: MONSTER Methadone HCl (Methadone Hcl 5 Mg Tab) 5 mg PO Q6H PRN PRN Reason: Moderate to Severe Pain Stop: 07/18/24 10:41 Last Admin: 07/04/24 12:02 Dose: 5 mg Documented By: NIKKIE Metoprolol Succinate (Metoprolol Succ 50mg Ext Rel Tab) 50 mg PO QAM RICKY Stop: 07/20/24 08:59 Last Admin: 07/04/24 08:15 Dose: 50 mg Documented By: Admin: 07/03/24 11:29 Dose: 50 mg Documented By: Admin: 07/02/24 08:46 Dose: 50 mg Documented By: Admin: 07/01/24 07:57 Dose: 50 mg Documented By: Admin: 06/30/24 08:30 Dose: 50 mg Documented By: Admin: 06/29/24 08:54 Dose: 50 mg Documented By: Admin: 06/28/24 08:52 Dose: 50 mg Documented By: Admin: 06/27/24 08:44 Dose: 50 mg Documented By: Admin: 06/26/24 10:49 Dose: 50 mg Documented By: Admin: 06/25/24 08:55 Dose: 50 mg Documented By: Admin: 06/24/24 08:18 Dose: 50 mg Documented By: Admin: 06/23/24 08:24 Dose: 50 mg Documented By: Admin: 06/22/24 08:01 Dose: 50 mg Documented By: Admin: 06/21/24 08:42 Dose: 50 mg Documented By: Admin: 06/20/24 09:16 Dose: 50 mg Documented By: AV Miscellaneous (Remove Lidoderm Patch) 1 each N/A DAILY@2100 [facility] Stop: 07/20/24 20:59 Last Admin: 07/03/24 21:13 Dose: 1 each Documented By: Admin: 07/02/24 22:22 Dose: 1 each Documented By: Admin: 07/01/24 20:23 Dose: 1 each Documented By: Admin: 06/30/24 20:56 Dose: 1 each Documented By: Admin: 06/29/24 19:28 Dose: 1 each Documented By: Admin: 06/28/24 20:01 Dose: 1 each Documented By: Admin: 06/27/24 20:20 Dose: 1 each Documented By: Admin: 06/26/24 21:16 Dose: 1 each Documented By: Admin: 06/25/24 21:02 Dose: 1 each Documented By: Admin: 06/24/24 19:57 Dose: 1 each Documented By: Admin: 06/23/24 20:30 Dose: 1 each Documented By: Admin: 06/22/24 19:35 Dose: 1 each Documented By: Admin: 06/21/24 21:26 Dose: 1 each Documented By: Admin: 06/20/24 20:28 Dose: 1 each Documented By: RES Nifedipine (Nifedipine Extended Rel 30 Mg Tabcr) 120 mg PO QAM [facility] Stop: 07/24/24 08:59 Last Admin: 07/03/24 07:55 Dose: Not Given Documented By: Admin: 07/02/24 08:45 Dose: 120 mg Documented By: Admin: 07/01/24 07:55 Dose: 120 mg Documented By: Admin: 06/30/24 08:29 Dose: 120 mg Documented By: Admin: 06/29/24 08:53 Dose: 120 mg Documented By: Admin: 06/28/24 08:50 Dose: 120 mg Documented By: Admin: 06/27/24 08:44 Dose: 120 mg Documented By: Admin: 06/26/24 10:49 Dose: 120 mg Documented By: Admin: 06/25/24 08:55 Dose: 120 mg Documented By: Admin: 06/24/24 09:27 Dose: 120 mg Documented By: VIRGIE Pantoprazole Sodium (Pantoprazole 40 Mg Tab) 40 mg PO BID RICKY Stop: 07/30/24 20:59 Last Admin: 07/04/24 08:12 Dose: 40 mg Documented By: Admin: 07/03/24 21:12 Dose: 40 mg Documented By: Admin: 07/03/24 08:46 Dose: 40 mg Documented By: Admin: 07/02/24 21:47 Dose: 40 mg Documented By: Admin: 07/02/24 08:47 Dose: 40 mg Documented By: Admin: 07/01/24 20:22 Dose: 40 mg Documented By: Admin: 07/01/24 07:58 Dose: 40 mg Documented By: Admin: 06/30/24 21:00 Dose: 40 mg Documented By: YASH Polyethylene Glycol (Polyethylene (Miralax) 17 Gm Pack) 17 gm PO BID RICKY Stop: 07/20/24 08:59 Last Admin: 07/04/24 08:20 Dose: 17 gm Documented By: Admin: 07/03/24 21:08 Dose: Not Given Documented By: Admin: 07/03/24 08:44 Dose: 17 gm Documented By: Admin: 07/02/24 22:21 Dose: Not Given Documented By: Admin: 07/02/24 08:44 Dose: 17 gm Documented By: Admin: 07/01/24 20:16 Dose: Not Given Documented By: Admin: 07/01/24 07:58 Dose: 17 gm Documented By: Admin: 06/30/24 20:56 Dose: Not Given Documented By: Admin: 06/30/24 08:42 Dose: 17 gm Documented By: Admin: 06/29/24 19:27 Dose: Not Given Documented By: Admin: 06/29/24 09:02 Dose: Not Given Documented By: Admin: 06/28/24 20:01 Dose: Not Given Documented By: Admin: 06/28/24 08:58 Dose: 17 gm Documented By: Admin: 06/27/24 20:19 Dose: Not Given Documented By: Admin: 06/27/24 08:49 Dose: Not Given Documented By: Admin: 06/26/24 20:45 Dose: Not Given Documented By: Admin: 06/26/24 08:59 Dose: 17 gm Documented By: Admin: 06/25/24 20:34 Dose: Not Given Documented By: Admin: 06/25/24 08:39 Dose: 17 gm Documented By: Admin: 06/24/24 19:55 Dose: Not Given Documented By: Admin: 06/24/24 08:28 Dose: 17 gm Documented By: Admin: 06/23/24 20:30 Dose: Not Given Documented By: Admin: 06/23/24 08:36 Dose: 17 gm Documented By: Admin: 06/22/24 19:34 Dose: Not Given Documented By: Admin: 06/22/24 07:59 Dose: 17 gm Documented By: Admin: 06/21/24 21:25 Dose: Not Given Documented By: Admin: 06/21/24 08:45 Dose: Not Given Documented By: Admin: 06/20/24 20:34 Dose: Not Given Documented By: Admin: 06/20/24 09:06 Dose: Not Given Documented By: AV Pregabalin (Pregabalin 100 Mg Cap) 100 mg PO TID RICKY Stop: 07/20/24 08:59 Last Admin: 07/04/24 08:20 Dose: 100 mg Documented By: Admin: 07/03/24 21:09 Dose: 100 mg Documented By: Admin: 07/03/24 13:46 Dose: 100 mg Documented By: Admin: 07/03/24 08:45 Dose: 100 mg Documented By: Admin: 07/02/24 21:50 Dose: 100 mg Documented By: Admin: 07/02/24 15:04 Dose: 100 mg Documented By: Admin: 07/02/24 08:44 Dose: 100 mg Documented By: Admin: 07/01/24 20:21 Dose: 100 mg Documented By: Admin: 07/01/24 14:54 Dose: 100 mg Documented By: MAYA Co-signed By: WENDY Admin: 07/01/24 07:54 Dose: 100 mg Documented By: Admin: 06/30/24 20:56 Dose: 100 mg Documented By: Admin: 06/30/24 14:39 Dose: 100 mg Documented By: Admin: 06/30/24 08:43 Dose: 100 mg Documented By: Admin: 06/29/24 19:27 Dose: 100 mg Documented By: Admin: 06/29/24 15:55 Dose: 100 mg Documented By: Admin: 06/29/24 09:10 Dose: 100 mg Documented By: Admin: 06/28/24 20:00 Dose: 100 mg Documented By: Admin: 06/28/24 13:00 Dose: 100 mg Documented By: Admin: 06/28/24 08:58 Dose: 100 mg Documented By: Admin: 06/27/24 20:18 Dose: 100 mg Documented By: Admin: 06/27/24 13:32 Dose: 100 mg Documented By: Admin: 06/27/24 09:09 Dose: 100 mg Documented By: Admin: 06/26/24 21:16 Dose: 100 mg Documented By: Admin: 06/26/24 13:58 Dose: 100 mg Documented By: Admin: 06/26/24 08:59 Dose: 100 mg Documented By: Admin: 06/25/24 21:01 Dose: 100 mg Documented By: Admin: 06/25/24 13:36 Dose: 100 mg Documented By: Admin: 06/25/24 08:41 Dose: 100 mg Documented By: Admin: 06/24/24 19:55 Dose: 100 mg Documented By: Admin: 06/24/24 14:43 Dose: 100 mg Documented By: Admin: 06/24/24 08:28 Dose: 100 mg Documented By: Admin: 06/23/24 20:18 Dose: 100 mg Documented By: Admin: 06/23/24 14:27 Dose: 100 mg Documented By: Admin: 06/23/24 08:36 Dose: 100 mg Documented By: Admin: 06/22/24 19:32 Dose: 100 mg Documented By: Admin: 06/22/24 13:33 Dose: 100 mg Documented By: Admin: 06/22/24 07:59 Dose: 100 mg Documented By: Admin: 06/21/24 21:33 Dose: 100 mg Documented By: Admin: 06/21/24 14:44 Dose: 100 mg Documented By: Admin: 06/21/24 08:42 Dose: 100 mg Documented By: Admin: 06/20/24 20:32 Dose: 100 mg Documented By: Admin: 06/20/24 14:58 Dose: 100 mg Documented By: Admin: 06/20/24 09:14 Dose: 100 mg Documented By: AV Ropinirole HCl (Ropinirole Hcl 2 Mg Tablet) 8 mg PO HS RICKY Stop: 07/20/24 20:59 Last Admin: 07/03/24 21:10 Dose: 8 mg Documented By: Admin: 07/02/24 21:48 Dose: 8 mg Documented By: Admin: 07/01/24 20:23 Dose: 8 mg Documented By: Admin: 06/30/24 20:57 Dose: 8 mg Documented By: Admin: 06/29/24 19:28 Dose: 8 mg Documented By: Admin: 06/28/24 20:01 Dose: 8 mg Documented By: Admin: 06/27/24 20:18 Dose: 8 mg Documented By: Admin: 06/26/24 21:15 Dose: 8 mg Documented By: Admin: 06/25/24 21:02 Dose: 8 mg Documented By: Admin: 06/24/24 19:57 Dose: 8 mg Documented By: Admin: 06/23/24 20:19 Dose: 8 mg Documented By: Admin: 06/22/24 19:36 Dose: 8 mg Documented By: Admin: 06/21/24 21:27 Dose: 8 mg Documented By: Admin: 06/20/24 20:28 Dose: 8 mg Documented By: YASH Sennosides (Senna 8.6 Mg Tab) 17.2 mg PO BID RICKY Stop: 08/01/24 11:29 Last Admin: 07/04/24 08:20 Dose: 17.2 mg Documented By: Admin: 07/03/24 21:13 Dose: Not Given Documented By: Admin: 07/03/24 08:45 Dose: 17.2 mg Documented By: Admin: 07/02/24 21:50 Dose: 17.2 mg Documented By: Admin: 07/02/24 11:59 Dose: 17.2 mg Documented By: SERAFIN Vitamin D (Cholecalciferol 25 Mcg (1000 Units) Tab) 25 mcg PO QAM RICKY Stop: 08/01/24 08:59 Last Admin: 07/04/24 08:11 Dose: 25 mcg Documented By: Admin: 07/03/24 08:45 Dose: 25 mcg Documented By: Admin: 07/02/24 08:45 Dose: 25 mcg Documented By: SERAFIN [place] [address] IN/OBS CONSULT LVL 3,45M Patient Type New History Expanded Problem Focused Exam Expanded Problem Focused Medical Decision Making Moderate Complexity Diagnoses Generalized anxiety disorder F41.1 Depression F32.9
[2024-07-04] MEDS: SODIUM CHLORIDE 0.9% 1,000 ML IV ONE (14:43)
[2024-07-04] MEDS: ARIPiprazole 5 MG TAB PO SCH (14:44)
[2024-07-04] MEDS ORDERED: CHLORASEPTIC (PHENOL) 1.4% SOLN 180 ML BTL MT PRN (16:43)
[2024-07-04] MEDS ORDERED: BENZOCAINE/MENTHOL 18 LOZ/1 BOX MT PRN (16:43)
[2024-07-04] MEDS: FIRST - Mouthwash BLM 5 ML UDP PO ONE (18:48)
[2024-07-04] MEDS: COUGH DROP (SUGAR FREE) LOZ 24 LOZ/1 BOX BUCCAL ONE (19:37)
[2024-07-04] MEDS: hydrOXYzine HCl 25 MG TAB PO SCH (21:41)
[2024-07-05] MEDS: ARIPiprazole 5 MG TAB PO SCH (07:42)
[2024-07-05 08:10] LABS: Hematocrit (blood only) 31.4 % (37.0-47.0); Hemoglobin 9.4 g/dl (12.0-16.0); Mean Corpuscular Hemoglobin 23.2 pg (25.0-34.0); Mean Corpuscular Hgb Conc 29.9 g/dL (32.0-36.0); Mean Corpuscular Volume 77.3 fL (80.0-100.0); Mean Platelet Volume 10.1 fL (9.4-12.4); Platelet Count 227 K/uL (130-400); RDW Coefficient of Variation 16.5 % (11.5-14.5); RDW Standard Deviation 46.5 fL (36.4-46.3); Red Blood Count 4.06 M/uL (4.20-5.40); White Blood Count 9.08 K/ul (4.8-10.8)
[2024-07-05 08:28] LABS: BUN Creatinine Ratio 35.9 (10-20); Calcium 8.6 mg/dl (8.6-10.3); Creatinine Clr Calc Pharmacy 132.5 ml/min; Magnesium 1.9 mg/dl (1.7-2.4); Potassium 4.2 mmol/L (3.5-5.1)
--- NOTE | 2024-07-05 10:29 | Hospitalist Progress Note ---
Date of Service July 05, 2024 Assessment & Plan (1) Abdominal pain: (2) Type 2 diabetes mellitus: (3) Chronic pain syndrome: (4) Iron deficiency anemia: (5) HTN (hypertension): (6) PAD (peripheral artery disease): (7) Esophagitis determined by endoscopy: (8) B12 deficiency: (9) History of tobacco use: (10) Neural foraminal stenosis of lumbar spine: (11) Pneumonia: (12) Constipation due to pain medication: Plan 59-year-old female with past medical history of insulin-dependent type 2 diabetes mellitus, peripheral arterial disease status post right BKA, essential hypertension, chronic pain syndrome on chronic opiates, grade D esophagitis from recent EGD in May 2024, gastroparesis who presented to the ED with vomiting, coughing, fever and chills and was found to have a left lower lobe pneumonia with sepsis #Unwitnessed fall Blood pressure is low, patient had a syncopal episode with dizziness and lightheadedness likely due to hypotension Radiology reviewed: No evidence of fracture or dislocation on x-ray as noted Hold antihypertensives IV Dilaudid also causing hypotension: Hold IV Dilaudid if systolic blood pressure less than 105 Monitor orthostatic vital signs #Left lower lobe pneumonia admission chest x-ray with left lower lobe pneumonia versus atelectasis, completed course of oral doxycycline. continues to feel ill and continues to have productive cough with greenish and blackish sputum. repeat chest x-ray 06/27 With new right basilar infiltrate and increased left basilar infiltrate compared to admission levofloxacin 750 mg p.o. x 5 days for pneumonia and patient finish 5 days of salo atment on 07/01/2024 - sputum culture ordered but not submitted - CTA chest 06/30 no PE, pleural effusion or pneumonia Patient now has new respiratory symptoms including sore throat, green sputum pro duction and is wheezing on exam Check two-view chest x-ray Check rapid bio fire Check strep PCR Sputum culture sent by nursing staff: Results pending Scheduled DuoNebs #Epigastric pain #Chronic pain syndrome #Recent hematemesis: Resolved #Iron deficiency anemia with superimposed B12 deficiency #Constipation likely related to opiates Patient was seen by GI for hematemesis She had a recent EGD in May 2024 which showed grade D esophagitis GI did not recommend endoscopy at this point and recommended treating with PPI: She was initially treated with IV PPI which is being changed to oral PPI H&H is stable Continue B12 supplementation Patient is on chronic opiates at home Palliative care is following with her regarding pain management Palliative care stopped oxycodone and switch patient to methadone after talking to her and have recommended continuing IV Dilaudid for now Patient aware that if systolic blood pressures less than 105, IV Dilaudid will not be given as it can cause hypotension Patient has epigastric pain which is different from her chronic pain White count and lactate levels are normal CTA of the abdomen pelvis from 07/01/2024 shows mild atheromatous plaque within the SMA, no flow-limiting stenosis. No significant plaque within the celiac artery. Plaque within the right common and right external iliac arteries causin g moderate to severe stenosis. Severe stenosis in the proximal SFA. Moderate to severe stenosis in the proximal left SFA. Excess stool throughout the colon consistent with constipation. No inflammatory changes or evidence of mesenteric ischemia Patient to follow-up with her vascular surgeon Dr. Fuentes as outpatient regarding severe stenosis which is chronic in nature Bowel regiment: Continue MiraLAX twice a day, senna twice a day, Linzess daily Check repeat KUB to see stool burden Vitamin B1 levels pending #Anxiety/depression Awaiting psychiatry consult Palliative care stop Seroquel since they are starting methadone Continue duloxetine per psychiatry recommendations Xanax as needed Psychiatry saw the patient and recommended adding Abilify 2.5 mg p.o. daily. I spoke with psychiatrist Dr. Espinosa via secure chat on 07/04/24: Informed him that palliative care has stopped Seroquel He is recommending replace Seroquel with Vistaril 50 mg p.o. nightly #Insulin-dependent type 2 diabetes mellitus with diabetic neuropathy A1c 7.1 (06/03/2024) Continue Lantus 5 units subcutaneous twice daily Accu-Cheks before every meal and nightly sliding scale insulin coverage Continue Lyrica 100 mg p.o. 3 times daily Monitor glycemic control #Essential hypertension #Peripheral arterial disease #Nonobstructive coronary disease Hold hydralazine, lisinopril and nifedipine in light of hypotension causing dizziness and fall Reduce clonidine to 0.1 mg p.o. twice daily with hold parameters Continue Toprol-XL with hold parameters Continue aspirin and Plavix Monitor vital signs: Orthostatic vital signs Hydralazine as needed for hypertension CODE STATUS: Full code DVT prophylaxis: Bilateral SCD. Patient also on aspirin and Plavix. She bled while being on heparin subcutaneous for DVT prophylaxis Care plan discussed with patient, nursing staff and palliative care team Admission and Anticipated Discharge Date Admission Date: June 20, 2024 Subjective Patient seen and examined Labs reviewed Patient states pain is under much better control today She is complaining of sore throat, cough with green sputum production and a sore on her lower lip She feels weak and tired today She is tolerating oral diet without any issues She is had multiple bowel movements and feels better with her abdominal symptoms Patient stopped smoking tobacco 9 months ago. She does not use any inhalers or nebulizers at home Physical Exam Physical Exam: General: No acute distress Psych: Awake and alert HEENT: Anicteric sclera, moist oral mucosa, oral ulcer on inside of lower lip noted CVS: Regular rate and rhythm Lungs: Bilateral air entry, bilateral expiratory wheezing noted Abdomen: Soft, epigastric tenderness to palpation, no rebound, no guarding, left abdominal wall abrasion noted Ext: No lower extremity edema, no calf tenderness, right BKA noted. Left foot dorsum wound in dressing, right elbow traumatic wound noted in dressing, no bleeding noted. Results & Data Results & Data Vital Signs (Past 12 Hours) Vital Signs Temp Pulse Resp BP Pulse Ox O2 Del Method 07/05/24 07:51 36.6 C 70 16 161/68 H 92 Room Air 07/05/24 07:30 Room Air 07/05/24 05:33 19 07/05/24 00:29 20 Laboratory Results Laboratory Results - last 24 hr 07/04/24 07/04/24 07/04/24 11:33 16:38 20:21 WBC RBC Hgb Hct MCV MCH MCHC RDW Std Deviation RDW Coeff of Maria Del Carmen Plt Count MPV Sodium Potassium Chloride Carbon Dioxide Anion Gap BUN Creatinine Est Cr Clr Drug Dosing eGFR BUN/Creatinine Ratio Glucose POC Glucose 96 157 H 129 H Calcium Magnesium 07/05/24 07/05/24 07:15 07:57 WBC 9.08 RBC 4.06 L Hgb 9.4 L Hct 31.4 L MCV 77.3 L MCH 23.2 L MCHC 29.9 L RDW Std Deviation 46.5 H RDW Coeff of Maria Del Carmen 16.5 H Plt Count 227 MPV 10.1 Sodium 141 Potassium 4.2 Chloride 107 Carbon Dioxide 28 Anion Gap 6 BUN 14 Creatinine 0.39 L Est Cr Clr Drug Dosing 132.5 eGFR 113.93 BUN/Creatinine Ratio 35.9 H Glucose 116 H POC Glucose 115 H Calcium 8.6 Magnesium 1.9 PG Care Time/CCT Total # of Minutes Spent Total Time Spent with Patient: Total time spent is greater than 50% in coordination of care (as documented) at patient's floor/unit and/or counseling patient: Coding Level of Care Code 51244 SUB INP/OBS CARE 3/50MIN Diagnoses Abdominal pain R10.9 Type 2 diabetes mellitus E11.69; Z79.4 Diabetes mellitus complication status: with other specified complication Diabetes mellitus fdc insulin use: with fdc use Chronic pain syndrome G89.4 Iron deficiency anemia D50.9 HTN (hypertension) I10 PAD (peripheral artery disease) I73.9 Esophagitis determined by endoscopy K20.90 B12 deficiency E53.8 History of tobacco use Z87.891 Neural foraminal stenosis of lumbar spine M48.061 Pneumonia J18.9 Laterality: left Lung location: lower lobe of lung Pneumonia type: due to unspecified organism Constipation due to pain medication K59.03 (2) Type 2 diabetes mellitus Diabetes mellitus complication status: with other specified complication Diabetes mellitus continuous churn buttermaker insulin use: with fdc use Qualified Code(s): E11.69 - Type 2 diabetes mellitus with other specified complication; Z79.4 - manager terminal (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
[2024-07-05] MEDS: ALBUT/IPRATROP 3MG/0.5MG NEB 3 ML VIAL NEB STA (10:51)
--- NOTE | 2024-07-05 12:02 | XRay Report ---
XR chest 2V PA/lateral CLINICAL HISTORY: cough ?pneumonia COMPARISON STUDY: Chest CT June 30, 2024. Chest radiograph and bilateral rib radiographs Novembe r 2023. FINDINGS: Lung volumes are normal. Lungs are clear. There is no pneumothorax or pleural effusion. Car diac size is normal. Mediastinal contours are normal. There is no evidence for pulmonary edema. IMPRESSION: No acute cardiopulmonary findings. ACT 112: Negative or not required by law. Electronically signed by: Wilver Powell M.D. 07/05/2024 12:01 PM
--- NOTE | 2024-07-05 12:13 | XRay Report ---
KUB CLINICAL HISTORY: Constipation. COMPARISON STUDY: PA of the abdomen and pelvis July 01, 2024 and KUB July 03, 2024. FINDINGS: Postoperative findings within the spine and cholecystectomy clips are incidentally noted. T he bowel gas pattern is normal. Ingested contents within the stomach are incidentally noted. There is a moderate amount of stool within the colon and rectum. This has decreased since prior exam. IMPRESSION: 1. No evidence for a bowel obstruction. 2. Moderate amount of stool within the colon and rectum, decreased since prior KUB. ACT 112: Negative or not required by law. Electronically signed by: Wilver Powell M.D. 07/05/2024 12:11 PM
[2024-07-05] MEDS: ALBUT/IPRATROP 3MG/0.5MG NEB 3 ML VIAL NEB SCH (13:12)
[2024-07-05 14:33] LABS: Adenovirus PCR Not Detected (NotDetected); Bordetella parapertussis PCR Not Detected (NotDetected); Bordetella pertussis PCR Not Detected (NotDetected); Chlamydia pneumoniae PCR Not Detected (NotDetected); Coronavirus 229E PCR Not Detected (NotDetected); Coronavirus CoV-2 (COVID19)PCR Not Detected (NotDetected); Coronavirus HKU1 PCR Not Detected (NotDetected); Coronavirus NL63 PCR Not Detected (NotDetected); Coronavirus OC43PCR Not Detected (NotDetected); Human Metapneumovirus PCR Not Detected (NotDetected); Influenza A PCR Not Detected (NotDetected); Influenza B PCR Not Detected (NotDetected); Mycoplasma pneumoniae PCR Not Detected (NotDetected); Parainfluenza Virus 1 PCR Not Detected (NotDetected); Parainfluenza Virus 2 PCR Not Detected (NotDetected); Parainfluenza Virus 3 PCR Not Detected (NotDetected); Parainfluenza Virus 4 PCR Not Detected (NotDetected); Respiratory Syncytial VirusPCR Not Detected (NotDetected); Rhinovirus/Enterovirus PCR Not Detected (NotDetected)
[2024-07-05] MEDS: NYSTATIN SUSP 500,000 U/5 ML UDC PO STA (15:11)
[2024-07-05] MEDS: NYSTATIN SUSP 500,000 U/5 ML UDC PO SCH (17:22)
[2024-07-05] MEDS: hydrALAZINE HCL 25 MG TAB PO PRN (20:19)
--- NOTE | 2024-07-06 10:10 | Hospitalist Progress Note ---
Date of Service July 06, 2024 Assessment & Plan (1) Abdominal pain: (2) Type 2 diabetes mellitus: (3) Chronic pain syndrome: (4) Iron deficiency anemia: (5) HTN (hypertension): (6) PAD (peripheral artery disease): (7) Esophagitis determined by endoscopy: (8) B12 deficiency: (9) History of tobacco use: (10) Neural foraminal stenosis of lumbar spine: (11) Pneumonia: (12) Constipation due to pain medication: Plan 59-year-old female with past medical history of insulin-dependent type 2 diabetes mellitus, peripheral arterial disease status post right BKA, essential hypertension, chronic pain syndrome on chronic opiates, grade D esophagitis from recent EGD in May 2024, gastroparesis who presented to the ED with vomiting, coughing, fever and chills and was found to have a left lower lobe pneumonia with sepsis #Unwitnessed fall Blood pressure is low, patient had a syncopal episode with dizziness and lightheadedness likely due to hypotension Radiology reviewed: No evidence of fracture or dislocation on x-ray as noted Hold antihypertensives IV Dilaudid also causing hypotension: Hold IV Dilaudid if systolic blood pressure less than 105 Monitor orthostatic vital signs #Left lower lobe pneumonia admission chest x-ray with left lower lobe pneumonia versus atelectasis, completed course of oral doxycycline. continues to feel ill and continues to have productive cough with greenish and blackish sputum. repeat chest x-ray 06/27 With new right basilar infiltrate and increased left basilar infiltrate compared to admission levofloxacin 750 mg p.o. x 5 days for pneumonia and patient finish 5 days of salo atment on 07/01/2024 - sputum culture ordered but not submitted - CTA chest 06/30 no PE, pleural effusion or pneumonia Patient now has new respiratory symptoms including sore throat, green sputum pro duction and is wheezing on exam Two-view chest x-ray from 07/05/2024 was clear Rapid bio fire from 07/05/2024 was negative Strep PCR from 07/05/2024 was negative Sputum culture sent by nursing staff: Preliminary results show moderate normal adithya Continue scheduled nebulizers #Epigastric pain #Chronic pain syndrome #Recent hematemesis: Resolved #Iron deficiency anemia with superimposed B12 deficiency #Constipation likely related to opiates Patient was seen by GI for hematemesis She had a recent EGD in May 2024 which showed grade D esophagitis GI did not recommend endoscopy at this point and recommended treating with PPI: She was initially treated with IV PPI which is being changed to oral PPI H&H is stable Continue B12 supplementation Patient is on chronic opiates at home Palliative care is following with her regarding pain management Palliative care stopped oxycodone and switch patient to methadone after talking to her and have recommended continuing IV Dilaudid for now Awaiting palliative care follow-up tomorrow regarding pain meds/methadone: As per palliative care, patient's outpatient PCP has agreed to prescribing methadone as outpatient Patient aware that if systolic blood pressures less than 105, IV Dilaudid will not be given as it can cause hypotension Patient has epigastric pain which is different from her chronic pain White count and lactate levels are normal CTA of the abdomen pelvis from 07/01/2024 shows mild atheromatous plaque within the SMA, no flow-limiting stenosis. No significant plaque within the celiac artery. Plaque within the right common and right external iliac arteries causing moderate to severe stenosis. Severe stenosis in the proximal SFA. Moderate to severe stenosis in the proximal left SFA. Excess stool throughout the colon consistent with constipation. No inflammatory changes or evidence of mesenteric ischemia Patient to follow-up with her vascular surgeon Dr. Fuentes as outpatient regarding severe stenosis which is chronic in nature Bowel regiment: Continue MiraLAX twice a day, senna twice a day, Linzess daily KUB from 07/05/2024 shows improvement in stool burden Vitamin B1 levels pending #Anxiety/depression Awaiting psychiatry consult Palliative care stop Seroquel since they are starting methadone Continue duloxetine per psychiatry recommendations Xanax as needed Psychiatry saw the patient and recommended Abilify 2.5 mg p.o. daily. I spoke with psychiatrist Dr. Espinosa via secure chat on 07/04/24: Informed him that palliative care has stopped Seroquel He is recommending replace Seroquel with Vistaril 50 mg p.o. nightly Patient reports that she is sleeping much better with Vistaril and Seroquel and would like to continue it as outpatient #Insulin-dependent type 2 diabetes mellitus with diabetic neuropathy A1c 7.1 (06/03/2024) Continue Lantus 5 units subcutaneous twice daily Accu-Cheks before every meal and nightly sliding scale insulin coverage Continue Lyrica 100 mg p.o. 3 times daily Monitor glycemic control #Essential hypertension #Peripheral arterial disease #Nonobstructive coronary disease Hold hydralazine, lisinopril and nifedipine in light of hypotension causing dizziness and fall Patient still continues to be orthostatic which I believe is related to IV Dilaudid: Her standing systolic blood pressure this morning was 120/68 Reduce clonidine to 0.1 mg p.o. twice daily with hold parameters Continue Toprol-XL with hold parameters Continue aspirin and Plavix Continue to monitor orthostatic vital signs while patient is on IV Dilaudid Hydralazine as needed for hypertension CODE STATUS: Full code DVT prophylaxis: Bilateral SCD. Patient also on aspirin and Plavix. She bled while being on heparin subcutaneous for DVT prophylaxis Care plan discussed with patient, nursing staff and palliative care team Admission and Anticipated Discharge Date Admission Date: June 20, 2024 Subjective Patient seen and examined Orthostatic vital signs reviewed Radiology reviewed and discussed with patient Patient states dizziness is improved Sore throat symptoms have improved: Patient was started on nystatin swish and swallow which has helped Patient states she slept really well last night Pain is under much better control with methadone per patient: Patient was only given 2 doses yesterday: Discussion with patient and nursing staff to gather for methadone to be given every 6 hours as needed prior to giving breakthrough pain dose of IV Dilaudid She is having regular bowel movements: Still rockhard with some loose stools surrounding it and feels much better with her abdominal symptoms. Physical Exam Physical Exam: General: No acute distress Psych: Awake and alert HEENT: Anicteric sclera, moist oral mucosa, oral ulcer on inside of lower lip noted CVS: Regular rate and rhythm Lungs: Bilateral air entry, no wheezing audible Abdomen: Soft, improved tenderness, no rebound, no guarding, left abdominal wall abrasion noted Ext: No lower extremity edema, no calf tenderness, right BKA noted. Results & Data Results & Data Vital Signs (Past 12 Hours) Vital Signs Temp Pulse Resp BP Pulse Ox O2 Del Method 07/06/24 08:14 36.9 C 90 18 195/77 H 93 Room Air 07/06/24 07:30 82 16 95 Room Air Laboratory Results Laboratory Results - last 24 hr 06/29/24 07/05/24 07/05/24 05:34 11:56 13:20 POC Glucose 179 H Whole Bld Vitamin B1 96 Adenovirus (PCR) Not Detected B. pertussis DNA (PCR) Not Detected B.parapertussis DNA PCR Not Detected C. pneumoniae DNA (PCR) Not Detected Coronavirus OC43 (PCR) Not Detected Coronavirus HKU1 (PCR) Not Detected Coronavirus 229E (PCR) Not Detected SARS-CoV-2 (PCR) Not Detected Coronavirus NL63 (PCR) Not Detected Human Metapneumovir PCR Not Detected Influenza Type A (PCR) Not Detected Influenza Type B (PCR) Not Detected M. pneumoniae (PCR) Not Detected Parainfluenza 1 (PCR) Not Detected Parainfluenza 2 (PCR) Not Detected Parainfluenza 3 (PCR) Not Detected Parainfluenza 4 (PCR) Not Detected RSV (PCR) Not Detected Entero/Rhino (PCR) Not Detected Group A Strep (PCR) 07/05/24 07/05/24 07/05/24 14:45 16:50 20:03 POC Glucose 126 H 96 Whole Bld Vitamin B1 Adenovirus (PCR) B. pertussis DNA (PCR) B.parapertussis DNA PCR C. pneumoniae DNA (PCR) Coronavirus OC43 (PCR) Coronavirus HKU1 (PCR) Coronavirus 229E (PCR) SARS-CoV-2 (PCR) Coronavirus NL63 (PCR) Human Metapneumovir PCR Influenza Type A (PCR) Influenza Type B (PCR) M. pneumoniae (PCR) Parainfluenza 1 (PCR) Parainfluenza 2 (PCR) Parainfluenza 3 (PCR) Parainfluenza 4 (PCR) RSV (PCR) Entero/Rhino (PCR) Group A Strep (PCR) NOT DETECTED 07/06/24 08:12 POC Glucose 160 H Whole Bld Vitamin B1 Adenovirus (PCR) B. pertussis DNA (PCR) B.parapertussis DNA PCR C. pneumoniae DNA (PCR) Coronavirus OC43 (PCR) Coronavirus HKU1 (PCR) Coronavirus 229E (PCR) SARS-CoV-2 (PCR) Coronavirus NL63 (PCR) Human Metapneumovir PCR Influenza Type A (PCR) Influenza Type B (PCR) M. pneumoniae (PCR) Parainfluenza 1 (PCR) Parainfluenza 2 (PCR) Parainfluenza 3 (PCR) Parainfluenza 4 (PCR) RSV (PCR) Entero/Rhino (PCR) Group A Strep (PCR) Diagnostic Findings Chest X-Ray 07/05/24 10:31 XR chest 2V PA/lateral CLINICAL HISTORY: cough ?pneumonia COMPARISON STUDY: Chest CT June 30, 2024. Chest radiograph and bilateral rib radiographs July 03, 2024. FINDINGS: Lung volumes are normal. Lungs are clear. There is no pneumothorax or pleural effusion. Cardiac size is normal. Mediastinal contours are normal. There is no evidence for pulmonary edema. IMPRESSION: No acute cardiopulmonary findings. ACT 112: Negative or not required by law. Electronically signed by: Wilver Powell M.D. 07/05/2024 12:01 PM KUB X-Ray 07/05/24 10:31 KUB CLINICAL HISTORY: Constipation. COMPARISON STUDY: PA of the abdomen and pelvis July 01, 2024 and KUB July 03, 2024. FINDINGS: Postoperative findings within the spine and cholecystectomy clips are incidentally noted. The bowel gas pattern is normal. Ingested contents within the stomach are incidentally noted. There is a moderate amount of stool within the colon and rectum. This has decreased since prior exam. IMPRESSION: 1. No evidence for a bowel obstruction. 2. Moderate amount of stool within the colon and rectum, decreased since prior KUB. ACT 112: Negative or not required by law. Electronically signed by: Wilver Powell M.D. 07/05/2024 12:11 PM PG Care Time/CCT Total # of Minutes Spent Total Time Spent with Patient: Total time spent is greater than 50% in coordination of care (as documented) at patient's floor/unit and/or counseling patient: Coding Level of Care Code 87238 SUB INP/OBS CARE 2/35MIN Diagnoses Abdominal pain R10.9 Type 2 diabetes mellitus E11.69; Z79.4 Diabetes mellitus complication status: with other specified complication Diabetes mellitus prison insulin use: with claims agent right of way use Chronic pain syndrome G89.4 Iron deficiency anemia D50.9 HTN (hypertension) I10 PAD (peripheral artery disease) I73.9 Esophagitis determined by endoscopy K20.90 B12 deficiency E53.8 History of tobacco use Z87.891 Neural foraminal stenosis of lumbar spine M48.061 Pneumonia J18.9 Laterality: left Lung location: lower lobe of lung Pneumonia type: due to unspecified organism Constipation due to pain medication K59.03 (2) Type 2 diabetes mellitus Diabetes mellitus complication status: with other specified complication Diabetes mellitus claims agent right of way insulin use: with claims agent right of way use Qualified Code(s): E11.69 - Type 2 diabetes mellitus with other specified complication; Z79.4 - FPC (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
[2024-07-06] MEDS: BENZOCAINE 20% (ORAJEL) 11.9 GM TUBE MT PRN (13:30)
[2024-07-07 07:58] LABS: Hematocrit (blood only) 31.3 % (37.0-47.0); Hemoglobin 9.5 g/dl (12.0-16.0); Mean Corpuscular Hemoglobin 23.3 pg (25.0-34.0); Mean Corpuscular Hgb Conc 30.4 g/dL (32.0-36.0); Mean Corpuscular Volume 76.7 fL (80.0-100.0); Mean Platelet Volume 10.4 fL (9.4-12.4); Platelet Count 226 K/uL (130-400); RDW Coefficient of Variation 16.7 % (11.5-14.5); RDW Standard Deviation 46.8 fL (36.4-46.3); Red Blood Count 4.08 M/uL (4.20-5.40); White Blood Count 7.35 K/ul (4.8-10.8)
[2024-07-07 08:18] LABS: BUN Creatinine Ratio 32.6 (10-20); Calcium 8.7 mg/dl (8.6-10.3); Creatinine Clr Calc Pharmacy 120.2 ml/min; Magnesium 1.8 mg/dl (1.7-2.4); Potassium 4.4 mmol/L (3.5-5.1)
--- NOTE | 2024-07-07 09:48 | Palliative Care Progress Note ---
Date of Service July 07, 2024 Assessment & Plan (1) Abdominal pain: (2) Chronic pain syndrome: (3) HTN (hypertension): (4) PAD (peripheral artery disease): (5) Esophagitis determined by endoscopy: (6) History of tobacco use: (7) Neural foraminal stenosis of lumbar spine: (8) Pneumonia: Plan 59-year-old female with past medical history of insulin-dependent type 2 diabetes mellitus, peripheral arterial disease status post right BKA, essential hypertension, chronic pain syndrome on chronic opiates, grade D esophagitis from recent EGD in May 2024, gastroparesis who presented to the ED with vomiting, coughing, fever and chills and was found to have a left lower lobe pneumonia which has resolved. Admission c/b intractable abdominal pain. #Epigastric pain #Chronic pain syndrome #Recent hematemesis: Resolved Patient was seen by GI for hematemesis, EGD in May 2024 which showed grade D esophagitis GI did not recommend endoscopy, recommended treating with PPI. Patient is on chronic opiates at home, currently with epigastric pain which is not consistent with her chronic pain and mesenteric ultrasound with stenosis in celiac and SMA. She states pain improved with addition of methadone but dilaudid use has not decreased with addition of 5mg methadone q6h PRN. OMEs Last 24h hour = 181.5 methadone 5mg every 6hr PRN x4 20mg = 94 OME dilaudid 1mg IV Q6hr PRN x 7= 7mg IV= 17.5mg PO = 87.5 OME 07/05 = 158 OME 07/04 = 134.5 Methadone intiated on 07/04 Repeat KUB (07/05) shows decreased stool burden as evidence of improved constipation. Encourage RNs to primarily give methadone for chronic pain with dilaudid for breakthrough pain only. Counselled pt on opiate use for chronic pain vs breakthrough pain. Discussed her hope for discharge to home before holiday and need to wean off of IV opiates. Pt in agreement to change of PRN dilaudid to q6h. Encouraged BSRNs to administer dilaudid and methadone on alternating schedule on offset 6h schedules so pt will have an opiate every 3hr as needed. Pt agrees to this step towards weaning from IV opiates. Will convert to PO tomorrow with hope for discharge home on Sunday. Medical mgmt per primary #Left lower lobe pneumonia - improved #Insulin-dependent type 2 diabetes mellitus with diabetic neuropathy A1c 7.1 (06/03/2024) #Iron deficiency anemia with superimposed B12 deficiency #Essential hypertension #Peripheral arterial disease #Nonobstructive coronary disease Admission and Anticipated Discharge Date Admission Date: June 20, 2024 Subjective pt assessed at bedside. She was awake, alert, oriented and pleasantly communicative. NAD on RA. No visitors at bedside. Pt reports pain much improved at day 3 after initiation of methadone. Review of Systems Constitutional: as per Subjective / HPI, + malaise and + weakness Eyes: PERRLA Ear, Nose, Mouth, Throat: no dizziness, no nasal congestion, no sinus pain/pressure and no sore throat Respiratory: no cough, no chest congestion and no hemoptysis Cardiovascular: no chest pain, no dyspnea at rest, no dyspnea on exertion and no palpitations Gastrointestinal: + abdominal pain (improved, RUQ to LUQ), + heartburn, + nausea, + vomiting and + hematemesis; no dysphagia, no constipation and no constant urge to pass stools Genitourinary: no problem reported Musculoskeletal: + muscle weakness Integumentary: no problem reported Neurologic: no problem reported Physical Exam Constitutional: WD/WN, vitals as above Eyes: PERRLA, EOMi ENMT: external ear and nose normal, oropharynx normal Neck: trachea midline, no thyromegaly Respiratory: normal respiratory effort, lungs clear to auscultation Cardiovascular: RRR, s1s2 Gastrointestinal (Abdomen): Inspection/Auscultation: abdomen normal to inspection, + abdomen distended and + hyperactive bowel sounds Percussion/Palpation: + abdomen tender ([place] upper quads ), + guarding and abdomen soft; no ascites Musculoskeletal: generalized weakness, no focal deficits Skin: no rashes, warm and dry Neurologic: grossly neurologically intact, no focal deficits noted Psychiatric: Orientation: alert and oriented x 3 Eye Contact: good eye contact Speech: normal rate/rhythm/volume of speech Thought Process: clear/coherent thought process Results & Data Vital Signs (Past 12 Hours) Vital Signs Temp Pulse Resp BP Pulse Ox O2 Del Method 07/07/24 08:05 37.5 C 83 15 153/78 H 93 Room Air 07/07/24 07:10 77 17 90 Room Air Laboratory Results Abnormal lab results 07/06/24 07/06/24 07/06/24 Range/Units 11:53 16:46 20:09 RBC (4.20-5.40) M/uL Hgb (12.0-16.0) g/dl Hct (37.0-47.0) % MCV (80.0-100.0) fL MCH (25.0-34.0) pg MCHC (32.0-36.0) g/dL RDW Std Deviation (36.4-46.3) fL RDW Coeff of Maria [place] Carmen (11.5-14.5) % Carbon Dioxide (21-32) mmol/L Creatinine (0.6-1.2) mg/dl BUN/Creatinine Ratio (10-20) Glucose (70-99(Fasting)) mg/dl POC Glucose 126 H 198 H 168 H (70-99) mg/dl 07/07/24 07/07/24 Range/Units 07:29 07:50 RBC 4.08 L (4.20-5.40) M/uL Hgb 9.5 L (12.0-16.0) g/dl Hct 31.3 L (37.0-47.0) % MCV 76.7 L (80.0-100.0) fL MCH 23.3 L (25.0-34.0) pg MCHC 30.4 L (32.0-36.0) g/dL RDW Std Deviation 46.8 H (36.4-46.3) fL RDW Coeff of Maria Del Carmen 16.7 H (11.5-14.5) % Carbon Dioxide 33 H (21-32) mmol/L Creatinine 0.43 L (0.6-1.2) mg/dl BUN/Creatinine Ratio 32.6 H (10-20) Glucose 133 H (70-99(Fasting)) mg/dl POC Glucose 134 H (70-99) mg/dl Diagnostic Findings Lumbar Spine MRI 06/24/24 13:21 Exam(s): MRI L SPINE W/WO Contrast IV Amt: 6cc gadavist EXAM: MR Lumbar Spine Without and With Intravenous Contrast CLINICAL HISTORY: Reason for exam: back pain. TECHNIQUE: Magnetic resonance images of the lumbar spine without and with intravenous contrast in multiple planes. CONTRAST: Patient received 6cc gadavist of IV contrast COMPARISON: Prior MRI of the lumbar spine from December 04, 2023. FINDINGS: This study is limited secondary to motion artifact. Vertebrae: There are 5 lumbar type vertebral bodies with a mild generalized curved to the right and normal lumbar lordosis. There is a mild grade 1 anterolisthesis of L4 and L5 measuring 3 mm. Patient is status post posterior fusion of L5 and S1 with transpedicular screws and connecting rods in place. Status post posterior decompression of S1. The bone marrow signal is heterogeneous with reactive endplate changes at L5-S1. No acute fracture. Spinal cord: The conus is normal size, shape and signal characteristics, terminate T12-L1 No abnormal enhancement. Soft tissues: Advanced atrophy of the iliopsoas, paraspinous intraspinous musculature. The aorta and IVC flow voids are intact. The visualized kidneys are unremarkable. DISCS/SPINAL CANAL/NEURAL FORAMINA: L1-L2: Unremarkable. No significant disc disease. No stenosis. L2-L3: Unremarkable. No significant disc disease. No stenosis. L3-L4: There is mild disc degeneration with annular disc bulge causing a mild subarticular recess stenosis with disc extending into the neural foramina without some impingement or significant stenosis. L4-L5: Moderate disc degeneration with annular disc bulge causing a mild right and moderate left subarticular recess stenosis with mild impingement of the transiting left L5 nerve root. There is disc and osteophyte extending to the neural foramina causing a moderate right and moderately severe left stenosis with impingement of the bilateral L4 nerve or ganglia. L5-S1: Advanced disc degeneration with disc and osteophyte extending to the neural foramina causing mild bilateral neuroforaminal stenosis without evidence of neural impingement. IMPRESSION: 1. Moderate disc degeneration at L4-5 and mild disc degeneration at L3-4 with annular disc bulging causing a mild subarticular recess stenosis at L3-4 and mild right and moderate left subarticular recess stenosis at L4- 5 with mild impingement of the transiting left L5 nerve root. 2. There is no spinal canal stenosis. 3. There is moderate right and moderately severe left L4-5 and mild bilateral L5-S1 neural foraminal stenosis with impingement of the bilateral L4 nerve or ganglia. 4. No evidence of fracture, infection, tumor or arachnoiditis. Electronically signed by: Betsey Steward MD 06/25/24 01:23 AM Thoracic Spine MRI 06/27/24 10:32 MR thoracic spine wo con HISTORY: 59 years-old Female eval for occult fx or infection given back pain with clinical concern for discitis/osteomyelitis COMPARISON: MRI lumbar spine 06/24/2024, MRI thoracic spine 12/04/2023 TECHNIQUE: Multiplanar multisequence MRI of the thoracic spine was obtained without IV contrast FINDINGS: Moderate to marked motion degradation. No fracture or subluxation. Paravertebral soft tissues are unremarkable. 12 mm right renal T2 hyperintense lesion, likely a cyst. Mild disc space narrowing within the mid thoracic spine most pronounced at the T6-T7 and T7-T8 levels. Mild multilevel facet arthrosis. The thoracic spinal cord appears to demonstrate a normal signal intensity but is suboptimally assessed due to the motion artifact. There is a 4 mm central central disc protrusion at T7-T8 which abuts but does not significantly deform the anterior thoracic spinal cord, unchanged. No significant central canal or neural foraminal narrowing at this level. Small broad- based posterior disc bulges at T6-T7 and T9-T10 without significant central canal or neural foraminal narrowi ng. IMPRESSION: 1. Motion degraded exam without acute fracture, subluxation, endplate erosion or significant bone marrow edema. 2. Mild degenerative changes of the thoracic spine, unchanged compared to the 12/04/2023 study. 3. Normal signal of the visualized thoracic spinal cord. ACT 112: Negative or not required by law. The above report was generated using voice recognition software. It may contain grammatical, syntax or spelling errors. Electronically signed by: Puneet Howard M.D. 06/27/2024 3:07 PM Chest CTA 06/30/24 08:23 CT ANGIOGRAPHY OF THE CHEST, PULMONARY EMBOLUS PROTOCOL CLINICAL HISTORY: Pleuritic pain. Evaluate for pulmonary embolus. COMPARISON STUDY: Chest radiograph June 27, 2024. Chest CT October 02, 2022. TECHNIQUE: Following IV administration of 112 mL of Optiray, helical axial images of the chest were obtained utilizing the pulmonary embolus protocol. Maximal intensity projections and sagittal and coronal reformats were viewed on an independent 3D workstation. IV contrast was administered without complication. Automated exposure control was utilized for the study. A dose lowering technique was utilized adhering to the principles of ALARA. CT DOSE: 674.59 mGy.cm FINDINGS: No pulmonary emboli are identified. There is no thoracic aortic dissection. Size of the heart is normal. There is no pericardial effusion. Advanced coronary artery calcification is again noted. There is no pneumothorax or pleural fusion. There is no consolidation to suggest pneumonia. Emphysema is present. A 1.6 cm subpleural groundglass opacity with cystic spaces within the right lower lobe on image 125 remains unchanged. There are no fractures within the visualized bony thorax. Visualized portions of the upper abdomen are unremarkable. IMPRESSION: 1. No pulmonary emboli identified. 2. No consolidation to suggest pneumonia. 3. Emphysema. ACT 112: Negative or not required by law. Electronically signed by: Wilver Powell M.D. 06/30/2024 11:00 AM Mesenteric US 06/30/24 14:11 Exam(s): US OTHER US duplex mesenteric EXAM: US Duplex Arterial/Venous of the mesenteric vasculature CLINICAL HISTORY: Reason for exam: severe vascular dz, persistent upper abdominal johnathan. TECHNIQUE: Real-time duplex ultrasound scan of the abdomen integrating B-mode two- dimensional vascular structure, Doppler spectral analysis and color flow Doppler imaging. COMPARISON: CT 06/02/2024 FINDINGS: Aorta: M=878va/s. Celiac artery: E=674jv/s. SMA: Mmecwu=021ze/s. Prox=*450cm/s. Dmx=278xa/s. Qdlucy=722yd/s. MARTIN not visualized due to bowel gas. Minimal plaque seen in aorta, celiac and SMA. Increased velocity in proximal SMA. IMPRESSION: 1. Markedly increased velocity within the SMA but very little plaque. Suggested 70-99% stenosis by peak systolic velocity of 450 cm/s. 2. Increased velocity within the celiac artery without visualized plaque. Suggested less than 70% stenosis by peak systolic velocity of 199 cm/s. Electronically signed by: Charlie Fleming MD 06/30/24 20:05 PM Abdomen/Pelvis CTA 07/01/24 17:06 Exam(s): CTA ABDOMEN + PELVIS With Contrast IV Amt: 119 cc opti 320 EXAM: CT Angiography Abdomen and Pelvis With Intravenous Contrast CLINICAL HISTORY: Reason for exam: pain, abnormal mesenteric US. TECHNIQUE: Axial computed tomographic angiography images of the abdomen and pelvis with intravenous contrast. CTDI is 36 mGy and DLP is 985.57 mGy-cm. Automated exposure control was utilized for the study. A dose lowering technique was utilized adhering to the principles of ALARA. MIP reconstructed images were created and reviewed. CONTRAST: Patient received 119 cc opti 320 of IV contrast COMPARISON: Ultrasound 06/30/2024, CT abdomen pelvis 06/02/2024 FINDINGS: VASCULATURE: Aorta: Normal caliber aorta. Mild nonflow limiting atheromatous disease. No dissection. Celiac trunk and mesenteric arteries: Mild atheromatous plaque within the SMA. No significant plaque within the celiac artery. No significant stenosis within the inferior mesenteric artery. Renal arteries: No acute findings. No occlusion or significant stenosis. Iliac arteries: Plaque within the right common and right external iliac arteries causing moderate to severe stenosis. Moderate stenosis within the right internal iliac artery. Atheromatous plaque within the left external iliac artery causing mild stenosis. Mild to moderate stenosis in the left internal iliac artery. -Severe stenosis in the proximal right SFA. -Moderate to severe stenosis in the proximal left SFA. Lung bases: Unremarkable. No mass. No consolidation. ABDOMEN: Liver: Unremarkable. No mass. Gallbladder and bile ducts: Cholecystectomy. No ductal dilation. Pancreas: Unremarkable. No ductal dilation. No mass. Spleen: Unremarkable. No splenomegaly. Adrenals: Unremarkable. No mass. Kidneys and ureters: Unremarkable. No hydronephrosis. No solid mass. Stomach and bowel: Excess stool throughout the colon consistent with constipation. No inflammatory changes or evidence of mesenteric ischemia. No obstruction. No mucosal thickening. PELVIS: Appendix: No findings to suggest acute appendicitis. Bladder: Unremarkable. No mass. Reproductive: Unremarkable as visualized. ABDOMEN and PELVIS: Intraperitoneal space: Unremarkable. No significant fluid collection. No free air. Bones/joints: No acute fracture. No dislocation. Soft tissues: Unremarkable. Lymph nodes: Unremarkable. No enlarged lymph nodes. Other findings: IMPRESSION: 1. Mild atheromatous plaque within the SMA. No flow-limiting stenosis. 2. No significant plaque within the celiac artery. 3. Plaque within the right common and right external iliac arteries causing moderate to severe stenosis. 4. Severe stenosis in the proximal right SFA. 5. Moderate to severe stenosis in the proximal left SFA. 6. Excess stool throughout the colon consistent with constipation. No inflammatory changes or evidence of mesenteric ischemia. Electronically signed by: Charlie Fleming MD 07/01/24 23:31 PM Forearm X-Ray 07/03/24 07:34 XR forearm RT 2V HISTORY: 59 years-old Female FALL WITH TRAUMA acute pain of the right upper extremity status post fall COMPARISON: Humerus radiographs of same day TECHNIQUE: 2 views of the right forearm FINDINGS: Osteoarthritis of the wrist and elbow. No acute fracture, dislocation or opaque foreign body. There is mid forearm soft tissue swelling. IMPRESSION: No acute fracture or dislocation. ACT 112: Negative or not required by law. The above report was generated using voice recognition software. It may contain grammatical, syntax or spelling errors. Electronically signed by: Puneet Howard M.D. 07/03/2024 8:45 AM Humerus X-Ray 07/03/24 07:34 XR humerus RT 2V CLINICAL HISTORY: FALL WITH TRAUMA COMPARISON: Right shoulder radiographs June 17, 2022. FINDINGS: There are no fractures within the right humerus. Alignment of the right elbow and right shoulder is anatomic. There are no osseous lesions. There is moderate joint space narrowing and osteophytosis of the right acromioclavicular joint. IMPRESSION: 1. No fractures within the right humerus. 2. Moderate right AC joint osteoarthritis. ACT 112: Negative or not required by law. Electronically signed by: Wilver Powell M.D. 07/03/2024 8:47 AM Ribs w/Chest X-Ray 07/03/24 07:34 XR ribs BI min 4V w [id number] CLINICAL HISTORY: FALL WITH TRAUMA COMPARISON: Chest radiograph June 27, 2024. Chest CT June 30, 2024. FINDINGS: There is no pneumothorax or pleural effusion. No airspace opacities are present. Pulmonary vascularity is normal. No rib fractures are identified. Cardiomediastinal silhouette is unremarkable. IMPRESSION: No pneumothorax. No rib fractures identified. ACT 112: Negative or not required by law. Electronically signed by: Wilver Powell M.D. 07/03/2024 8:45 AM Shoulder X-Ray 07/03/24 07:34 XR shoulder RT min 2V routine HISTORY: 59 years-old Female FALL WITH TRAUMA . Right shoulder pain status post fall COMPARISON: None TECHNIQUE: 3 views of the right shoulder FINDINGS: Mild glenohumeral with moderate AC joint osteoarthritis. No acute fracture, dislocation or opaque foreign body. The imaged lung cardozo appear clear. IMPRESSION: No acute fracture or dislocation. ACT 112: Negative or not required by law. The above report was generated using voice recognition software. It may contain grammatical, syntax or spelling errors. Electronically signed by: Puneet Howard M.D. 07/03/2024 8:44 AM Chest X-Ray 07/05/24 10:31 XR chest 2V PA/lateral CLINICAL HISTORY: cough ?pneumonia COMPARISON STUDY: Chest CT June 30, 2024. Chest radiograph and bilateral rib radiographs July 03, 2024. FINDINGS: Lung volumes are normal. Lungs are clear. There is no pneumothorax or pleural effusion. Cardiac size is normal. Mediastinal contours are normal. There is no evidence for pulmonary edema. IMPRESSION: No acute cardiopulmonary findings. ACT 112: Negative or not required by law. Electronically signed by: Wilver Powell M.D. 07/05/2024 12:01 PM KUB X-Ray 07/05/24 10:31 KUB CLINICAL HISTORY: Constipation. COMPARISON STUDY: PA of the abdomen and pelvis July 01, 2024 and KUB July 03, 2024. FINDINGS: Postoperative findings within the spine and cholecystectomy clips are incidentally noted. The bowel gas pattern is normal. Ingested contents within the stomach are incidentally noted. There is a moderate amount of stool within the colon and rectum. This has decreased since prior exam. IMPRESSION: 1. No evidence for a bowel obstruction. 2. Moderate amount of stool within the colon and rectum, decreased since prior KUB. ACT 112: Negative or not required by law. Electronically signed by: Wilver Powell M.D. 07/05/2024 12:11 PM Medications Administered Last 24h hour OMEs: 181.5 (previous 24hr 158 OME) methadone 5mg every 6hr PRN x4 20mg = 94 OME dilaudid 1mg IV Q6hr PRN x 7= 7mg IV= 17.5mg PO = 87.5 OME Current Inpatient Medications Acetaminophen (Acetaminophen 325 Mg Tab) 650 mg PO Q4H PRN PRN Reason: pain/fever Stop: 07/20/24 00:39 Last Admin: 06/24/24 11:08 Dose: 650 mg Albuterol (Albut/Ipratrop 3mg/0.5mg Neb 3 Ml Vial) 3 ml NEB Q6R PRN; Protocol PRN Reason: Shortness Of Breath Or Wheezing Stop: 07/20/24 02:31 Last Admin: 06/29/24 06:26 Dose: 3 ml Albuterol (Albut/Ipratrop 3mg/0.5mg Neb 3 Ml Vial) 3 ml NEB TIDR RICKY; Protocol Stop: 08/04/24 12:59 Last Admin: 07/07/24 07:10 Dose: 3 ml Alprazolam (Alprazolam 0.5 Mg Tablet) 1 mg PO Q8H PRN PRN Reason: anxiety,insomnia Stop: 08/01/24 11:46 Last Admin: 07/06/24 22:03 Dose: 1 mg Aripiprazole (A[facility]ole 5 Mg Tab) [facility] Stop: 08/04/24 08:59 Last Admin: 07/07/24 08:27 Dose: 2.5 mg Aspirin (Aspirin 81 Mg Ectab) 81 mg PO QAM [facility] Stop: 07/30/24 08:59 Last Admin: 07/07/24 08:28 Dose: 81 mg Benzocaine (Benzocaine/Menthol 18 [place]/1 Box) 1 tiago MT Q4H PRN PRN Reason: Sore Throat Stop: 08/03/24 16:42 Benzocaine (Benzocaine 20% (Orajel) 11.9 Gm Tube) 1 appln MT Q4 PRN PRN Reason: oral ulcer Stop: 08/04/24 11:08 Last Admin: 07/06/24 13:30 Dose: 1 appln Clonidine HCl (Clonidine Hcl 0.1 Mg Tab) 0.1 mg PO BID [facility] Stop: 08/02/24 20:59 Last Admin: 07/07/24 08:29 Dose: 0.1 mg Clopidogrel Bisulfate (Clopidogrel Bisulfate 75 Mg Tab) 75 mg PO DAILY [facility] Stop: 07/20/24 08:59 Last Admin: 07/07/24 08:30 Dose: 75 mg Cyanocobalamin (Cyanocobalamin (B-12) 500 Mcg Tablet) 1,000 mcg PO QAM [facility] Stop: 07/20/24 08:59 Last Admin: 07/07/24 08:30 Dose: 1,000 mcg Dextrose (Dextrose 50% 50 Ml Syringe) 25 - 50 ml IV UD PRN; Protocol PRN Reason: Hypoglycemia Protocol Stop: 07/20/24 01:02 Docusate Sodium (Docusate Sodium 100 Mg Cap) 100 mg PO BID [facility] Stop: 07/20/24 08:59 Last Admin: 07/07/24 08:30 Dose: 100 mg Duloxetine HCl (Duloxetine Hcl 60 Mg Cap) 60 mg PO DAILY RICKY Stop: 07/20/24 08:59 Last Admin: 07/07/24 08:30 Dose: 60 mg Glucagon (Glucagon For Inj 1 Mg Vial) 1 mg SQ UD PRN; Protocol PRN Reason: Hypoglycemia Protocol Stop: 07/20/24 01:02 Glucose (Glucose 40% Gel 15 Gm Tube) 15 - 30 gm PO UD PRN; Protocol PRN Reason: Hypoglycemia Protocol Stop: 07/20/24 01:02 Glucose (Glucose 10 Tab/Tube) 4 - 8 tab PO UD PRN; Protocol PRN Reason: Hypoglycemia Protocol Stop: 07/20/24 01:02 Guaifenesin/Codeine Phosphate (Guaifenesin/Codeine 100mg/10mg 5ml Udc) 5 ml PO Q6H PRN PRN Reason: Cough Stop: 07/22/24 11:24 Hydralazine HCl (Hydralazine Hcl 25 Mg Tab) 25 mg PO TID PRN PRN Reason: Hypertension Stop: 07/20/24 08:59 Last Admin: 07/06/24 18:06 Dose: 25 mg Hydromorphone HCl (Hydromorphone Inj 1 Mg/Ml Syringe) 1 mg IV Q3H PRN PRN Reason: Breakthrough Pain Stop: 07/09/24 12:15 Last Admin: 07/07/24 08:33 Dose: 1 mg Hydroxyzine HCl (Hydroxyzine Hcl 25 Mg Tab) 50 mg PO HS [facility] Stop: 08/03/24 20:59 Last Admin: 07/06/24 20:36 Dose: 50 mg Prochlorperazine 5 mg/ Syringe 5 mls @ 5 mls/min IV Q6H PRN PRN Reason: Nausea And Vomiting Stop: 07/27/24 18:30 Last Admin: 07/05/24 05:21 Dose: 5 mls/min Insulin Aspart (Insulin Aspart Per Unit Charge) 0 units SC ACHS [facility] Stop: 07/20/24 07:29 Last Admin: 07/07/24 08:25 Dose: 3 units Insulin Glargine (Lantus Per Unit Charge) 5 units SQ BID [facility] Stop: 07/20/24 08:59 Last Admin: 07/07/24 08:26 Dose: 5 units Lidocaine (Lidocaine 5% 1 Patch) 1 patch TD QAM RICKY Stop: 07/20/24 08:59 Last Admin: 07/07/24 08:31 Dose: 1 patch Linaclotide (Linaclotide 72 Mcg Capsule) 72 mcg PO DAILY [facility] Stop: 07/08/24 11:14 Last Admin: 07/07/24 08:32 Dose: 72 mcg Lisinopril (Lisinopril 20 Mg Tab) 20 mg PO DAILY RICKY Stop: 07/20/24 08:59 Last Admin: 07/03/24 07:55 Dose: Not Given Magnesium Oxide (Magnesium Oxide 400 Mg Tab) 400 mg PO QPM RICKY Stop: 07/31/24 20:59 Last Admin: 07/06/24 20:36 Dose: 400 mg Melatonin (Melatonin 3 Mg Tab) 3 mg PO HS PRN PRN Reason: Insomnia Stop: 07/20/24 00:39 Last Admin: 07/06/24 22:03 Dose: 3 mg Methadone HCl (Methadone Hcl 5 Mg Tab) 5 mg PO Q6H PRN PRN Reason: Moderate to Severe Pain Stop: 07/18/24 10:41 Last Admin: 07/07/24 04:12 Dose: 5 mg Metoprolol Succinate (Metoprolol Succ 50mg Ext Rel Tab) 50 mg PO QAM [facility] Stop: 07/20/24 08:59 Last Admin: 07/07/24 08:32 Dose: 50 mg Miscellaneous (Carbohydrates For Hypoglycemia ) 15 - 30 gm PO UD PRN PRN Reason: Hypoglycemia Protocol Stop: 07/20/24 01:02 Miscellaneous (Remove Lidoderm Patch) 1 each N/A DAILY@2100 [facility] Stop: 07/20/24 20:59 Last Admin: 07/06/24 20:37 Dose: 1 each Nifedipine (Nifedipine Extended Rel 30 Mg Tabcr) 120 mg PO QAM [facility] Stop: 07/24/24 08:59 Last Admin: 07/03/24 07:55 Dose: Not Given Nystatin (Nystatin Susp 500,000 U/5 Ml Udc) 5 ml PO QID [facility]ICK[facility] Stop: 07/15/24 16:59 Last Admin: 07/07/24 08:33 Dose: 5 ml Pantoprazole Sodium (Pantoprazole 40 Mg Tab) 40 mg PO BID RICKY Stop: 07/30/24 20:59 Last Admin: 07/07/24 08:33 Dose: 40 mg Phenol (Chloraseptic (Phenol) 1.4% Soln 180 Ml Btl) 1 sprays MT Q4H PRN PRN Reason: Sore Throat Stop: 08/03/24 16:42 Polyethylene Glycol (Polyethylene (Miralax) 17 Gm Pack) 17 gm PO BID RICKY Stop: 07/20/24 08:59 Last Admin: 07/07/24 08:33 Dose: 17 gm Pregabalin (Pregabalin 100 Mg Cap) 100 mg PO TID RICKY Stop: 07/20/24 08:59 Last Admin: 07/07/24 08:33 Dose: 100 mg Ropinirole HCl (Ropinirole Hcl 2 Mg Tablet) 8 mg PO HS RICKY Stop: 07/20/24 20:59 Last Admin: 07/06/24 20:37 Dose: 8 mg Sennosides (Senna 8.6 Mg Tab) 17.2 mg PO BID RICKY Stop: 08/01/24 11:29 Last Admin: 07/07/24 08:33 Dose: 17.2 mg Vitamin D (Cholecalciferol 25 Mcg (1000 Units) Tab) 25 mcg PO QAM RICKY Stop: 08/01/24 08:59 Last Admin: 07/07/24 08:28 Dose: 25 mcg PG Care Time/CCT Total # of Minutes Spent Total Time Spent with Patient: Total time spent is greater than 50% in coordination of care (as documented) at patient's floor/unit and/or counseling patient: Coding [place] [address] SUB INP/OBS CARE 3/50MIN Patient Type Established History Expanded Problem Focused Exam Expanded Problem Focused Medical Decision Making High Complexity Diagnoses Abdominal pain R10.9 Chronic pain syndrome G89.4 HTN (hypertension) I10 PAD (peripheral artery disease) I73.9 Esophagitis determined by endoscopy K20.90 History of tobacco use Z87.891 Neural foraminal stenosis of lumbar spine M48.061 Pneumonia J18.9 Laterality: left Lung location: lower lobe of lung Pneumonia type: due to unspecified organism (8) Pneumonia Laterality: left Lung location: lower lobe of lung Pneumonia type: due to unspecified organism Qualified Code(s): J18.9 - Pneumonia, unspecified organism
--- NOTE | 2024-07-07 10:30 | Hospitalist Progress Note ---
Date of Service July 07, 2024 Assessment & Plan (1) Abdominal pain: (2) Type 2 diabetes mellitus: (3) Chronic pain syndrome: (4) Iron deficiency anemia: (5) HTN (hypertension): (6) PAD (peripheral artery disease): (7) Esophagitis determined by endoscopy: (8) B12 deficiency: (9) History of tobacco use: (10) Neural foraminal stenosis of lumbar spine: (11) Pneumonia: (12) Constipation due to pain medication: Plan 59-year-old female with past medical history of insulin-dependent type 2 diabetes mellitus, peripheral arterial disease status post right BKA, essential hypertension, chronic pain syndrome on chronic opiates, grade D esophagitis from recent EGD in May 2024, gastroparesis who presented to the ED with vomiting, coughing, fever and chills and was found to have a left lower lobe pneumonia with sepsis #Unwitnessed fall Blood pressure is low, patient had a syncopal episode with dizziness and lightheadedness likely due to hypotension Radiology reviewed: No evidence of fracture or dislocation on x-ray as noted Hold antihypertensives IV Dilaudid also causing hypotension: Hold IV Dilaudid if systolic blood pressure less than 105 Monitor orthostatic vital signs #Left lower lobe pneumonia admission chest x-ray with left lower lobe pneumonia versus atelectasis, completed course of oral doxycycline. continues to feel ill and continues to have productive cough with greenish and blackish sputum. repeat chest x-ray 06/27 With new right basilar infiltrate and increased left basilar infiltrate compared to admission levofloxacin 750 mg p.o. x 5 days for pneumonia and patient finish 5 days of salo atment on 07/01/2024 - sputum culture ordered but not submitted - CTA chest 06/30 no PE, pleural effusion or pneumonia Patient now has new respiratory symptoms including sore throat, green sputum pro duction and is wheezing on exam Two-view chest x-ray from 07/05/2024 was clear Rapid bio fire from 07/05/2024 was negative Strep PCR from 07/05/2024 was negative Sputum culture sent by nursing staff: Preliminary results show moderate normal adithya Continue scheduled nebulizers #Epigastric pain #Chronic pain syndrome #Recent hematemesis: Resolved #Iron deficiency anemia with superimposed B12 deficiency #Constipation likely related to opiates Patient was seen by GI for hematemesis She had a recent EGD in May 2024 which showed grade D esophagitis GI did not recommend endoscopy at this point and recommended treating with PPI: She was initially treated with IV PPI which is being changed to oral PPI H&H is stable Vitamin B1 level is 96 Continue B12 supplementation Patient is on chronic opiates at home Palliative care is following with her regarding pain management Palliative care stopped oxycodone and switch patient to methadone after talking to her and have recommended continuing IV Dilaudid for now Awaiting palliative care follow-up today regarding pain meds/methadone: As per palliative care, patient's outpatient PCP has agreed to prescribing methadone as outpatient Patient aware that if systolic blood pressures less than 105, IV Dilaudid will not be given as it can cause hypotension Patient has epigastric pain which is different from her chronic pain White count and lactate levels are normal CTA of the abdomen pelvis from 07/01/2024 shows mild atheromatous plaque within the SMA, no flow-limiting stenosis. No significant plaque within the celiac artery. Plaque within the right common and right external iliac arteries causing moderate to severe stenosis. Severe stenosis in the proximal SFA. Mo derate to severe stenosis in the proximal left SFA. Excess stool throughout the colon consistent with constipation. No inflammatory changes or evidence of mesenteric ischemia Patient to follow-up with her vascular surgeon Dr. Fuentes as outpatient regarding severe stenosis which is chronic in nature Bowel regiment: Continue MiraLAX twice a day, senna twice a day, Linzess daily: Mag citrate x 1 dose today along with Dulcolax suppository MT daily x 2 days KUB from 07/05/2024 shows improvement in stool burden #Anxiety/depression Awaiting psychiatry consult Palliative care stop Seroquel since they are starting methadone Continue duloxetine per psychiatry recommendations Xanax as needed Psychiatry saw the patient and recommended Abilify 2.5 mg p.o. daily. I spoke with psychiatrist Dr. Espinosa via secure chat on 07/04/24: Informed him that palliative care has stopped Seroquel He is recommending replace Seroquel with Vistaril 50 mg p.o. nightly Patient reports that she is sleeping much better with Vistaril and Seroquel and would like to continue it as outpatient #Insulin-dependent type 2 diabetes mellitus with diabetic neuropathy A1c 7.1 (06/03/2024) Continue Lantus 5 units subcutaneous twice daily Accu-Cheks before every meal and nightly sliding scale insulin coverage Continue Lyrica 100 mg p.o. 3 times daily Monitor glycemic control #Essential hypertension #Peripheral arterial disease #Nonobstructive coronary disease Hold hydralazine, lisinopril and nifedipine in light of hypotension causing dizziness and fall Patient still continues to be orthostatic which I believe is related to IV Dilaudid: Her standing systolic blood pressure this morning was 120/68 Reduce clonidine to 0.1 mg p.o. twice daily with hold parameters Continue Toprol-XL with hold parameters Continue aspirin and Plavix Continue to monitor orthostatic vital signs while patient is on IV Dilaudid Hydralazine as needed for hypertension CODE STATUS: Full code DVT prophylaxis: Bilateral SCD. Patient also on aspirin and Plavix. She bled while being on heparin subcutaneous for DVT prophylaxis Discharge planning tentatively on 07/09/2024 with home health services based on palliative care recommendations and if medically stable Care plan discussed with patient, nursing staff and palliative care team Admission and Anticipated Discharge Date Admission Date: June 20, 2024 Subjective Patient seen and examined Orthostatic vital signs reviewed Patient requesting laxatives and specifically requesting Dulcolax suppository and magnesium citrate which has helped her She is working with palliative care on medication management and weaning Dilaudid: She would like to be home on 07/09/2024 and is aware the Dilaudid has to be weaned prior to her being discharged She does acknowledge that the pain is under much better control and that she is sleeping much better Tolerating oral diet without any issues Physical Exam Physical Exam: General: No acute distress Psych: Awake and alert HEENT: Anicteric sclera, moist oral mucosa, oral ulcer on inside of lower lip noted CVS: Regular rate and rhythm Lungs: Bilateral air entry, no wheezing audible Abdomen: Soft, improved tenderness, no rebound, no guarding, left abdominal wall abrasion noted Ext: No lower extremity edema, no calf tenderness, right BKA noted. Results & Data Results & Data Vital Signs (Past 12 Hours) Vital Signs Temp Pulse Resp BP Pulse Ox O2 Del Method 07/07/24 09:51 16 07/07/24 08:05 37.5 C 83 15 153/78 H 93 Room Air 07/07/24 07:10 77 17 90 Room Air Laboratory Results Laboratory Results - last 24 hr 07/06/24 07/06/24 07/06/24 11:53 16:46 20:09 WBC RBC Hgb Hct MCV MCH MCHC RDW Std Deviation RDW Coeff of Maria Del Carmen Plt Count MPV Sodium Potassium Chloride Carbon Dioxide Anion Gap BUN Creatinine Est Cr Clr Drug Dosing eGFR BUN/Creatinine Ratio Glucose POC Glucose 126 H 198 H 168 H Calcium Magnesium 07/07/24 07/07/24 07:29 07:50 WBC 7.35 RBC 4.08 L Hgb 9.5 L Hct 31.3 L MCV 76.7 L MCH 23.3 L MCHC 30.4 L RDW Std Deviation 46.8 H RDW Coeff of Maria Del Carmen 16.7 H Plt Count 226 MPV 10.4 Sodium 143 Potassium 4.4 Chloride 105 Carbon Dioxide 33 H Anion Gap 5 BUN 14 Creatinine 0.43 L Est Cr Clr Drug Dosing 120.2 eGFR 111.28 BUN/Creatinine Ratio 32.6 H Glucose 133 H POC Glucose 134 H Calcium 8.7 Magnesium 1.8 PG Care Time/CCT Total # of Minutes Spent Total Time Spent with Patient: Total time spent is greater than 50% in coordination of care (as documented) at patient's floor/unit and/or counseling patient: Coding Level of Care Code 39113 SUB INP/OBS CARE 2/35MIN Diagnoses Abdominal pain R10.9 Type 2 diabetes mellitus E11.69; Z79.4 Diabetes mellitus complication status: with other specified complication Diabetes mellitus chcf insulin use: with watermelon inspector use Chronic pain syndrome G89.4 Iron deficiency anemia D50.9 HTN (hypertension) I10 PAD (peripheral artery disease) I73.9 Esophagitis determined by endoscopy K20.90 B12 deficiency E53.8 History of tobacco use Z87.891 Neural foraminal stenosis of lumbar spine M48.061 Pneumonia J18.9 Laterality: left Lung location: lower lobe of lung Pneumonia type: due to unspecified organism Constipation due to pain medication K59.03 (2) Type 2 diabetes mellitus Diabetes mellitus complication status: with other specified complication Diabetes mellitus chcf insulin use: with chcf use Qualified Code(s): E11.69 - Type 2 diabetes mellitus with other specified complication; Z79.4 - senior living (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
[2024-07-07] MEDS: MAGNESIUM CITRATE 296 ML/BTL PO STA (10:56)
[2024-07-07] MEDS: bisacodyL 10 MG SUPP PR STA (10:56)
[2024-07-07] MEDS: HYDROmorphone INJ 1 MG/ML SYRINGE IV PRN (12:00)
[2024-07-08] MEDS: bisacodyL 10 MG SUPP PR SCH (08:14)
--- NOTE | 2024-07-08 10:31 | Hospitalist Progress Note ---
Date of Service July 08, 2024 Assessment & Plan (1) Abdominal pain: (2) Type 2 diabetes mellitus: (3) Chronic pain syndrome: (4) Iron deficiency anemia: (5) HTN (hypertension): (6) PAD (peripheral artery disease): (7) Esophagitis determined by endoscopy: (8) B12 deficiency: (9) History of tobacco use: (10) Neural foraminal stenosis of lumbar spine: (11) Pneumonia: (12) Constipation due to pain medication: Plan 59-year-old female with past medical history of insulin-dependent type 2 diabetes mellitus, peripheral arterial disease status post right BKA, essential hypertension, chronic pain syndrome on chronic opiates, grade D esophagitis from recent EGD in May 2024, gastroparesis who presented to the ED with vomiting, coughing, fever and chills and was found to have a left lower lobe pneumonia with sepsis #Unwitnessed fall Blood pressure is low, patient had a syncopal episode with dizziness and lightheadedness likely due to hypotension Radiology reviewed: No evidence of fracture or dislocation on x-ray as noted Hold antihypertensives IV Dilaudid also causing hypotension: Hold IV Dilaudid if systolic blood pressure less than 105 Monitor orthostatic vital signs #Left lower lobe pneumonia admission chest x-ray with left lower lobe pneumonia versus atelectasis, completed course of oral doxycycline. continues to feel ill and continues to have productive cough with greenish and blackish sputum. repeat chest x-ray 06/27 With new right basilar infiltrate and increased left basilar infiltrate compared to admission levofloxacin 750 mg p.o. x 5 days for pneumonia and patient finish 5 days of salo atment on 07/01/2024 - sputum culture ordered but not submitted - CTA chest 06/30 no PE, pleural effusion or pneumonia Patient now has new respiratory symptoms including sore throat, green sputum pro duction and is wheezing on exam Two-view chest x-ray from 07/05/2024 was clear Rapid bio fire from 07/05/2024 was negative Strep PCR from 07/05/2024 was negative Sputum culture from 07/05/2024 showed heavy normal adithya Continue scheduled nebulizers #Epigastric pain #Chronic pain syndrome #Recent hematemesis: Resolved #Iron deficiency anemia with superimposed B12 deficiency #Constipation likely related to opiates Patient was seen by GI for hematemesis She had a recent EGD in May 2024 which showed grade D esophagitis GI did not recommend endoscopy at this point and recommended treating with PPI: She was initially treated with IV PPI which is being changed to oral PPI H&H is stable Vitamin B1 level is 96 Continue B12 supplementation Patient is on chronic opiates at home Palliative care is following with her regarding pain management Palliative care is planning on stopping IV Dilaudid today and continuing with oral methadone Awaiting palliative care follow-up today regarding pain meds/methadone: As per palliative care, patient's outpatient PCP has agreed to prescribing methadone as outpatient Patient has epigastric pain which is different from her chronic pain White count and lactate levels are normal CTA of the abdomen pelvis from 07/01/2024 shows mild atheromatous plaque within the SMA, no flow-limiting stenosis. No significant plaque within the celiac artery. Plaque within the right common and right external iliac arteries causing moderate to severe stenosis. Severe stenosis in the proximal SFA. Moderate to severe stenosis in the proximal left SFA. Excess stool throughout the colon consistent with constipation. No inflammatory changes or evidence of mesenteric ischemia Patient to follow-up with her vascular surgeon Dr. Fuentes as outpatient regarding severe stenosis which is chronic in nature Bowel regiment: Continue MiraLAX twice a day, senna twice a day, Linzess daily: Soapsuds enema x 1 dose today KUB from 07/05/2024 shows improvement in stool burden #Anxiety/depression Awaiting psychiatry consult Palliative care stop Seroquel since they are starting methadone Continue duloxetine per psychiatry recommendations Xanax as needed Psychiatry saw the patient and recommended Abilify 2.5 mg p.o. daily. I spoke with psychiatrist Dr. Espinosa via secure chat on 07/04/24: Informed him that palliative care has stopped Seroquel He is recommending replace Seroquel with Vistaril 50 mg p.o. nightly Patient reports that she is sleeping much better with Vistaril and Seroquel and would like to continue it as outpatient #Insulin-dependent type 2 diabetes mellitus with diabetic neuropathy A1c 7.1 (06/03/2024) Continue Lantus 5 units subcutaneous twice daily Accu-Cheks before every meal and nightly sliding scale insulin coverage Continue Lyrica 100 mg p.o. 3 times daily Monitor glycemic control #Essential hypertension #Peripheral arterial disease #Nonobstructive coronary disease Blood pressure medications were held due to hypotension causing dizziness and fall Now that IV Dilaudid has been slowly weaned down, blood pressure has improved Resume lisinopril at low-dose of 10 mg daily with hold parameters Continue clonidine to 0.1 mg p.o. twice daily with hold parameters Continue Toprol-XL with hold parameters Continue aspirin and Plavix Continue to monitor orthostatic vital signs while patient is on IV Dilaudid Hydralazine as needed for hypertension CODE STATUS: Full code DVT prophylaxis: Bilateral SCD. Patient also on aspirin and Plavix. She bled while being on heparin subcutaneous for DVT prophylaxis Discharge planning tentatively on 07/09/2024 with home health services based on palliative care recommendations and if medically stable. I spoke with palliative care team and they will give patient a prescription for methadone on discharge and the PCP will continue prescribing methadone Care plan discussed with patient, nursing staff and palliative care team Admission and Anticipated Discharge Date Admission Date: June 20, 2024 Subjective Patient seen and examined Patient states pain is under much better control and she is slept well She is concerned about her bowels as she has not had a bowel movement Topamax citrate and is open to trying enema Will increase Linzess Awaiting palliative care meeting with patient regarding analgesia Patient is hoping to be discharged tomorrow Physical Exam Physical Exam: General: No acute distress Psych: Awake and alert HEENT: Anicteric sclera, moist oral mucosa, oral ulcer on inside of lower lip noted CVS: Regular rate and rhythm Lungs: Bilateral air entry, no wheezing audible Abdomen: Soft, improved tenderness, no rebound, no guarding, left abdominal wall abrasion noted Ext: No lower extremity edema, no calf tenderness, right BKA noted. Results & Data Results & Data Vital Signs (Past 12 Hours) Vital Signs Temp Pulse Resp BP Pulse Ox O2 Del Method FiO2 07/08/24 07:54 37.0 C 79 17 157/83 H 92 Room Air 07/08/24 07:39 77 14 87 L Room Air 21 PG Care Time/CCT Total # of Minutes Spent Total Time Spent with Patient: Total time spent is greater than 50% in coordination of care (as documented) at patient's floor/unit and/or counseling patient: Coding Level of Care Code 42504 SUB INP/OBS CARE 2/35MIN Diagnoses Abdominal pain R10.9 Type 2 diabetes mellitus E11.69; Z79.4 Diabetes mellitus complication status: with other specified complication Diabetes mellitus exterminator termite insulin use: with exterminator termite use Chronic pain syndrome G89.4 Iron deficiency anemia D50.9 HTN (hypertension) I10 PAD (peripheral artery disease) I73.9 Esophagitis determined by endoscopy K20.90 B12 deficiency E53.8 History of tobacco use Z87.891 Neural foraminal stenosis of lumbar spine M48.061 Pneumonia J18.9 Laterality: left Lung location: lower lobe of lung Pneumonia type: due to unspecified organism Constipation due to pain medication K59.03 (2) Type 2 diabetes mellitus Diabetes mellitus complication status: with other specified complication Diabetes mellitus exterminator termite insulin use: with exterminator termite use Qualified Code(s): E11.69 - Type 2 diabetes mellitus with other specified complication; Z79.4 - care home (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
[2024-07-08] MEDS: lisinopril 10 MG TAB PO SCH (11:13)
[2024-07-08] MEDS ORDERED: METHADONE HCL 5 MG TAB PO PRN ×2 (12:26→16:18)
[2024-07-08] MEDS: METHADONE HCL 5 MG TAB PO STA (12:45)
--- NOTE | 2024-07-08 13:26 | Palliative Care Progress Note ---
Date of Service July 08, 2024 Assessment & Plan (1) Abdominal pain: (2) Chronic pain syndrome: (3) HTN (hypertension): (4) PAD (peripheral artery disease): (5) Esophagitis determined by endoscopy: (6) History of tobacco use: (7) Neural foraminal stenosis of lumbar spine: (8) Pneumonia: Plan 59-year-old female with past medical history of insulin-dependent type 2 diabetes mellitus, peripheral arterial disease status post right BKA, essential hypertension, chronic pain syndrome on chronic opiates, grade D esophagitis from recent EGD in May 2024, gastroparesis who presented to the ED with vomiting, coughing, fever and chills and was found to have a left lower lobe pneumonia which has resolved. Admission c/b intractable abdominal pain likely 2/2 constipation. #Epigastric pain #Chronic pain syndrome #Recent hematemesis: Resolved Patient was seen by GI for hematemesis, EGD in May 2024 which showed grade D esophagitis GI did not recommend endoscopy, recommended treating with PPI. Patient is on chronic opiates at home, currently with epigastric pain which is not consistent with her chronic pain and mesenteric ultrasound with stenosis in celiac and SMA. She states pain improved with addition of methadone but dilaudid use has not decreased with addition of 5mg methadone q6h PRN. OMEs Last 24h hour = 156.5 methadone 5mg every 6hr PRN x4 20mg = 94 OME dilaudid 1mg IV Q6hr PRN x 5= 5mg IV= 12.5mg PO = 62.5 OME 07/07 = 181.5 OME 07/05 = 158 OME 07/04 = 134.5 Methadone intiated on 07/04 Repeat KUB (07/05) shows decreased stool burden as evidence of improved constipation. Increased methadone dose conservatively to 7.5mg PO Q6hr PRN. Changed dilaudid IV q6h PRN (1mg IV = 2.5mg PO = 12.5 OME) to PO oxycodone IR 30mg Q6h PRN (30mg PO = 45 OME) for breakthrough pain. Pt shared that po dilaudid does not offer any relief to her pain, most other long acting medications have copays that are cost prohibitive or not well tolerated by the pt. Goal will be to manage pt's pain mainly with long-acting medications and progressively decrease need for breakthrough immediate release medications. Encourage RNs to primarily give methadone for chronic pain with dilaudid for breakthrough pain only. Counselled pt on opiate use for chronic pain vs breakthrough pain. Pt resistant to change of PRN dilaudid to oxycodone PO. Discussed her hope for discharge to home before holiday and need to wean off of IV opiates. Pt stated that she could stay in hospital as long as she is able to continue the IV diaudid. I shared with her that aside from her pain she is medically cleared for discharge, and we will need to move forward with preparing her to be discharged with a plan that she will be able to continue at home. She expressed understanding and again today requests one more day on IV Dilaudid. She has been resistant to changing from IV to PO medication since admission, despite stating that her pain is well managed today and improving as her constipation resolves. Educated pt no chronic pain, helped her understand that complete relief of pain may not be a realistic goal. Encouraged BSRNs to administer oxycodone and methadone PrN on alternating schedule on offset 6h (PRN) schedules so pt will have an opiate every 3hr as needed. Pt agrees to this step towards weaning from IV opiates in hope for discharge home on Sunday. Medical mgmt per primary #Left lower lobe pneumonia - improved #Insulin-dependent type 2 diabetes mellitus with diabetic neuropathy A1c 7.1 (06/03/2024) #Iron deficiency anemia with superimposed B12 deficiency #Essential hypertension #Peripheral arterial disease #Nonobstructive coronary disease Admission and Anticipated Discharge Date Admission Date: June 20, 2024 Subjective pt assessed at bedside. She was awake, alert, oriented and pleasantly communicative. NAD on RA. No visitors at bedside. Pt reports pain much improved at day 5 after initiation of methadone but continues to require IV dilaudid frequently for breakthrough pain. Review of Systems Constitutional: as per Subjective / HPI, + malaise and + weakness Eyes: PERRLA Ear, Nose, Mouth, Throat: no dizziness, no nasal congestion, no sinus pain/pressure and no sore throat Respiratory: no cough, no chest congestion and no hemoptysis Cardiovascular: no chest pain, no dyspnea at rest, no dyspnea on exertion and no palpitations Gastrointestinal: + abdominal pain (improved, RUQ to LUQ), + bloating and + constipation; no dysphagia and no constant urge to pass stools Genitourinary: no problem reported Musculoskeletal: + muscle weakness Integumentary: no problem reported Neurologic: no problem reported Physical Exam Constitutional: WD/WN, vitals as above Eyes: PERRLA, EOMi ENMT: external ear and nose normal, oropharynx normal Neck: trachea midline, no thyromegaly Respiratory: normal respiratory effort, lungs clear to auscultation Cardiovascular: RRR, s1s2 Gastrointestinal (Abdomen): Inspection/Auscultation: + abdomen distended and + hyperactive bowel sounds Percussion/Palpation: + abdomen tender ([place] upper quads ), + guarding and abdomen soft; no ascites Musculoskeletal: generalized weakness, no focal deficits Skin: no rashes, warm and dry Neurologic: grossly neurologically intact, no focal deficits noted Psychiatric: Orientation: alert and oriented x 3 Eye Contact: good eye contact Speech: normal rate/rhythm/volume of speech Thought Process: clear/coherent thought process Results & Data Vital Signs (Past 12 Hours) Vital Signs Temp Pulse Resp BP Pulse Ox O2 Del Method FiO2 07/08/24 07:54 37.0 C 79 17 157/83 H 92 Room Air 07/08/24 07:39 77 14 87 L Room Air 21 Laboratory Results Abnormal lab results 07/07/24 07/07/24 07/08/24 Range/Units 16:42 20:35 07:51 POC Glucose 105 H 279 H 155 H (70-99) mg/dl 07/08/24 Range/Units 11:44 POC Glucose 143 H (70-99) mg/dl Diagnostic Findings Lumbar Spine MRI 06/24/24 13:21 Exam(s): MRI L SPINE W/WO Contrast IV Amt: 6cc gadavist EXAM: MR Lumbar Spine Without and With Intravenous Contrast CLINICAL HISTORY: Reason for exam: back pain. TECHNIQUE: Magnetic resonance images of the lumbar spine without and with intravenous contrast in multiple planes. CONTRAST: Patient received 6cc gadavist of IV contrast COMPARISON: Prior MRI of the lumbar spine from December 04, 2023. FINDINGS: This study is limited secondary to motion artifact. Vertebrae: There are 5 lumbar type vertebral bodies with a mild generalized curved to the right and normal lumbar lordosis. There is a mild grade 1 anterolisthesis of L4 and L5 measuring 3 mm. Patient is status post posterior fusion of L5 and S1 with transpedicular screws and connecting rods in place. Status post posterior decompression of S1. The bone marrow signal is heterogeneous with reactive endplate changes at L5-S1. No acute fracture. Spinal cord: The conus is normal size, shape and signal characteristics, terminate T12-L1 No abnormal enhancement. Soft tissues: Advanced atrophy of the iliopsoas, paraspinous intraspinous musculature. The aorta and IVC flow voids are intact. The visualized kidneys are unremarkable. DISCS/SPINAL CANAL/NEURAL FORAMINA: L1-L2: Unremarkable. No significant disc disease. No stenosis. L2-L3: Unremarkable. No significant disc disease. No stenosis. L3-L4: There is mild disc degeneration with annular disc bulge causing a mild subarticular recess stenosis with disc extending into the neural foramina without some impingement or significant stenosis. L4-L5: Moderate disc degeneration with annular disc bulge causing a mild right and moderate left subarticular recess stenosis with mild impingement of the transiting left L5 nerve root. There is disc and osteophyte extending to the neural foramina causing a moderate right and moderately severe left stenosis with impingement of the bilateral L4 nerve or ganglia. L5-S1: Advanced disc degeneration with disc and osteophyte extending to the neural foramina causing mild bilateral neuroforaminal stenosis without evidence of neural impingement. IMPRESSION: 1. Moderate disc degeneration at L4-5 and mild disc degeneration at L3-4 with annular disc bulging causing a mild subarticular recess stenosis at L3-4 and mild right and moderate left subarticular recess stenosis at L4- 5 with mild impingement of the transiting left L5 nerve root. 2. There is no spinal canal stenosis. 3. There is moderate right and moderately severe left L4-5 and mild bilateral L5-S1 neural foraminal stenosis with impingement of the bilateral L4 nerve or ganglia. 4. No evidence of fracture, infection, tumor or arachnoiditis. Electronically signed by: Betsey Steward MD 06/25/24 01:23 AM Thoracic Spine MRI 06/27/24 10:32 MR thoracic spine wo con HISTORY: 59 years-old Female eval for occult fx or infection given back pain with clinical concern for discitis/osteomyelitis COMPARISON: MRI lumbar spine 06/24/2024, MRI thoracic spine 12/04/2023 TECHNIQUE: Multiplanar multisequence MRI of the thoracic spine was obtained without IV contrast FINDINGS: Moderate to marked motion degradation. No fracture or subluxation. Paravertebral soft tissues are unremarkable. 12 mm right renal T2 hyperintense lesion, likely a cyst. Mild disc space narrowing within the mid thoracic spine most pronounced at the T6-T7 and T7-T8 levels. Mild multilevel facet arthrosis. The thoracic spinal cord appears to demonstrate a normal signal intensity but is suboptimally assessed due to the motion artifact. There is a 4 mm central central disc protrusion at T7-T8 which abuts but does not significantly deform the anterior thoracic spinal cord, unchanged. No significant central canal or neural foraminal narrowing at this level. Small broad- based posterior disc bulges at T6-T7 and T9-T10 without significant central canal or neural foraminal narrowing. IMPRESSION: 1. Motion degraded exam without acute fracture, subluxation, endplate erosion or significant bone marrow edema. 2. Mild degenerative changes of the thoracic spine, unchanged compared to the 12/04/2023 study. 3. Normal signal of the visualized thoracic spinal cord. ACT 112: Negative or not required by law. The above report was generated using voice recognition software. It may contain grammatical, syntax or spelling errors. Electronically signed by: Puneet Howard M.D. 06/27/2024 3:07 PM Chest CTA 06/30/24 08:23 CT ANGIOGRAPHY OF THE CHEST, PULMONARY EMBOLUS PROTOCOL CLINICAL HISTORY: Pleuritic pain. Evaluate for pulmonary embolus. COMPARISON STUDY: Chest radiograph June 27, 2024. Chest CT October 02, 2022. TECHNIQUE: Following IV administration of 112 mL of Optiray, helical axial images of the chest were obtained utilizing the pulmonary embolus protocol. Maximal intensity projections and sagittal and coronal reformats were viewed on an independent 3D workstation. IV contrast was administered without complication. Automated exposure control was utilized for the study. A dose lowering technique was utilized adhering to the principles of ALARA. CT DOSE: 674.59 mGy.cm FINDINGS: No pulmonary emboli are identified. There is no thoracic aortic dissection. Size of the heart is normal. There is no pericardial effusion. Advanced coronary artery calcification is again noted. There is no pneumothorax or pleural fusion. There is no consolidation to suggest pneumonia. Emphysema is present. A 1.6 cm subpleural groundglass opacity with cystic spaces within the right lower lobe on image 125 remains unchanged. There are no fractures within the visualized bony thorax. Visualized portions of the upper abdomen are unremarkable. IMPRESSION: 1. No pulmonary emboli identified. 2. No consolidation to suggest pneumonia. 3. Emphysema. ACT 112: Negative or not required by law. Electronically signed by: Wilver Powell M.D. 06/30/2024 11:00 AM Mesenteric US 06/30/24 14:11 Exam(s): US OTHER US duplex mesenteric EXAM: US Duplex Arterial/Venous of the mesenteric vasculature CLINICAL HISTORY: Reason for exam: severe vascular dz, persistent upper abdominal johnathan. TECHNIQUE: Real-time duplex ultrasound scan of the abdomen integrating B-mode two- dimensional vascular structure, Doppler spectral analysis and color flow Doppler imaging. COMPARISON: CT 06/02/2024 FINDINGS: Aorta: P=640op/s. Celiac artery: R=463od/s. SMA: Eikbbr=632iy/s. Prox=*450cm/s. Kov=925no/s. Zvkbgd=456gw/s. MARTIN not visualized due to bowel gas. Minimal plaque seen in aorta, celiac and SMA. Increased velocity in proximal SMA. IMPRESSION: 1. Markedly increased velocity within the SMA but very little plaque. Suggested 70-99% stenosis by peak systolic velocity of 450 cm/s. 2. Increased velocity within the celiac artery without visualized plaque. Suggested less than 70% stenosis by peak systolic velocity of 199 cm/s. Electronically signed by: Charlie Fleming MD 06/30/24 20:05 PM Abdomen/Pelvis CTA 07/01/24 17:06 Exam(s): CTA ABDOMEN + PELVIS With Contrast IV Amt: 119 cc opti 320 EXAM: CT Angiography Abdomen and Pelvis With Intravenous Contrast CLINICAL HISTORY: Reason for exam: pain, abnormal mesenteric US. TECHNIQUE: Axial computed tomographic angiography images of the abdomen and pelvis with intravenous contrast. CTDI is 36 mGy and DLP is 985.57 mGy-cm. Automated exposure control was utilized for the study. A dose lowering technique was utilized adhering to the principles of ALARA. MIP reconstructed images were created and reviewed. CONTRAST: Patient received 119 cc opti 320 of IV contrast COMPARISON: Ultrasound 06/30/2024, CT abdomen pelvis 06/02/2024 FINDINGS: VASCULATURE: Aorta: Normal caliber aorta. Mild nonflow limiting atheromatous disease. No dissection. Celiac trunk and mesenteric arteries: Mild atheromatous plaque within the SMA. No significant plaque within the celiac artery. No significant stenosis within the inferior mesenteric artery. Renal arteries: No acute findings. No occlusion or significant stenosis. Iliac arteries: Plaque within the right common and right external iliac arteries causing moderate to severe stenosis. Moderate stenosis within the right internal iliac artery. Atheromatous plaque within the left external iliac artery causing mild stenosis. Mild to moderate stenosis in the left internal iliac artery. -Severe stenosis in the proximal right SFA. -Moderate to severe stenosis in the proximal left SFA. Lung bases: Unremarkable. No mass. No consolidation. ABDOMEN: Liver: Unremarkable. No mass. Gallbladder and bile ducts: Cholecystectomy. No ductal dilation. Pancreas: Unremarkable. No ductal dilation. No mass. Spleen: Unremarkable. No splenomegaly. Adrenals: Unremarkable. No mass. Kidneys and ureters: Unremarkable. No hydronephrosis. No solid mass. Stomach and bowel: Excess stool throughout the colon consistent with constipation. No inflammatory changes or evidence of mesenteric ischemia. No obstruction. No mucosal thickening. PELVIS: Appendix: No findings to suggest acute appendicitis. Bladder: Unremarkable. No mass. Reproductive: Unremarkable as visualized. ABDOMEN and PELVIS: Intraperitoneal space: Unremarkable. No significant fluid collection. No free air. Bones/joints: No acute fracture. No dislocation. Soft tissues: Unremarkable. Lymph nodes: Unremarkable. No enlarged lymph nodes. Other findings: IMPRESSION: 1. Mild atheromatous plaque within the SMA. No flow-limiting stenosis. 2. No significant plaque within the celiac artery. 3. Plaque within the right common and right external iliac arteries causing moderate to severe stenosis. 4. Severe stenosis in the proximal right SFA. 5. Moderate to severe stenosis in the proximal left SFA. 6. Excess stool throughout the colon consistent with constipation. No inflammatory changes or evidence of mesenteric ischemia. Electronically signed by: Charlie Fleming MD 07/01/24 23:31 PM Forearm X-Ray 07/03/24 07:34 XR forearm RT 2V HISTORY: 59 years-old Female FALL WITH TRAUMA acute pain of the right upper extremity status post fall COMPARISON: Humerus radiographs of same day TECHNIQUE: 2 views of the right forearm FINDINGS: Osteoarthritis of the wrist and elbow. No acute fracture, dislocation or opaque foreign body. There is mid forearm soft tissue swelling. IMPRESSION: No acute fracture or dislocation. ACT 112: Negative or not required by law. The above report was generated using voice recognition software. It may contain grammatical, syntax or spelling errors. Electronically signed by: Puneet Howard M.D. 07/03/2024 8:45 AM Humerus X-Ray 07/03/24 07:34 XR humerus RT 2V CLINICAL HISTORY: FALL WITH TRAUMA COMPARISON: Right shoulder radiographs June 17, 2022. FINDINGS: There are no fractures within the right humerus. Alignment of the right elbow and right shoulder is anatomic. There are no osseous lesions. There is moderate joint space narrowing and osteophytosis of the right acromioclavicular joint. IMPRESSION: 1. No fractures within the right humerus. 2. Moderate right AC joint osteoarthritis. ACT 112: Negative or not required by law. Electronically signed by: Wilver Powell M.D. 07/03/2024 8:47 AM Ribs w/Chest X-Ray 07/03/24 07:34 XR ribs BI min 4V w [id number] CLINICAL HISTORY: FALL WITH TRAUMA COMPARISON: Chest radiograph June 27, 2024. Chest CT June 30, 2024. FINDINGS: There is no pneumothorax or pleural effusion. No airspace opacities are present. Pulmonary vascularity is normal. No rib fractures are identified. Cardiomediastinal silhouette is unremarkable. IMPRESSION: No pneumothorax. No rib fractures identified. ACT 112: Negative or not required by law. Electronically signed by: Wilver Powell M.D. 07/03/2024 8:45 AM Shoulder X-Ray 07/03/24 07:34 XR shoulder RT min 2V routine HISTORY: 59 years-old Female FALL WITH TRAUMA . Right shoulder pain status post fall COMPARISON: None TECHNIQUE: 3 views of the right shoulder FINDINGS: Mild glenohumeral with moderate AC joint osteoarthritis. No acute fracture, dis location or opaque foreign body. The imaged lung cardozo appear clear. IMPRESSION: No acute fracture or dislocation. ACT 112: Negative or not required by law. The above report was generated using voice recognition software. It may contain grammatical, syntax or spelling errors. Electronically signed by: Puneet Howard M.D. 07/03/2024 8:44 AM Chest X-Ray 07/05/24 10:31 XR chest 2V PA/lateral CLINICAL HISTORY: cough ?pneumonia COMPARISON STUDY: Chest CT June 30, 2024. Chest radiograph and bilateral rib radiographs July 03, 2024. FINDINGS: Lung volumes are normal. Lungs are clear. There is no pneumothorax or pleural effusion. Cardiac size is normal. Mediastinal contours are normal. There is no evidence for pulmonary edema. IMPRESSION: No acute cardiopulmonary findings. ACT 112: Negative or not required by law. Electronically signed by: Wilver Powell M.D. 07/05/2024 12:01 PM KUB X-Ray 07/05/24 10:31 KUB CLINICAL HISTORY: Constipation. COMPARISON STUDY: PA of the abdomen and pelvis July 01, 2024 and KUB July 03, 2024. FINDINGS: Postoperative findings within the spine and cholecystectomy clips are incidentally noted. The bowel gas pattern is normal. Ingested contents within the stomach are incidentally noted. There is a moderate amount of stool within the colon and rectum. This has decreased since prior exam. IMPRESSION: 1. No evidence for a bowel obstruction. 2. Moderate amount of stool within the colon and rectum, decreased since prior KUB. ACT 112: Negative or not required by law. Electronically signed by: Wilver Powell M.D. 07/05/2024 12:11 PM Medications Administered Current Inpatient Medications Acetaminophen (Acetaminophen 325 Mg Tab) 650 mg PO Q4H PRN PRN Reason: pain/fever Stop: 07/20/24 00:39 Last Admin: 06/24/24 11:08 Dose: 650 mg Albuterol (Albut/Ipratrop 3mg/0.5mg Neb 3 Ml Vial) 3 ml NEB Q6R PRN; Protocol PRN Reason: Shortness Of Breath Or Wheezing Stop: 07/20/24 02:31 Last Admin: 06/29/24 06:26 Dose: 3 ml Albuterol (Albut/Ipratrop 3mg/0.5mg Neb 3 Ml Vial) 3 ml NEB TIDR RICKY; Protocol Stop: 08/04/24 12:59 Last Admin: 07/08/24 07:39 Dose: 3 ml Alprazolam (Alprazolam 0.5 Mg Tablet) 1 mg PO Q8H PRN PRN Reason: anxiety,insomnia Stop: 08/01/24 11:46 Last Admin: 07/08/24 11:18 Dose: 1 mg Aripiprazole (Aripiprazole 5 Mg Tab) 2.5 mg PO QAM RICKY Stop: 08/04/24 08:59 Last Admin: 07/08/24 08:08 Dose: 2.5 mg Aspirin (Aspirin 81 Mg Ectab) 81 mg PO QAM [facility] Stop: 07/30/24 08:59 Last Admin: 07/08/24 08:06 Dose: 81 mg Benzocaine (Benzocaine/Menthol 18 Ti[place]/1 Box) 1 tiago MT Q4H PRN PRN Reason: Sore Throat Stop: 08/03/24 16:42 Benzocaine (Benzocaine 20% (Orajel) 11.9 Gm Tube) 1 appln MT Q4 PRN PRN Reason: oral ulcer Stop: 08/04/24 11:08 Last Admin: 07/06/24 13:30 Dose: 1 appln Bisacodyl (Bisacodyl 10 Mg Supp) 10 mg RI DAILY [facility] Stop: 07/10/24 08:59 Last Admin: 07/08/24 08:14 Dose: 10 mg Clonidine HCl (Clonidine Hcl 0.1 Mg Tab) 0.1 mg PO BID [facility] Stop: 08/02/24 20:59 Last Admin: 07/08/24 08:05 Dose: 0.1 mg Clopidogrel Bisulfate (Clopidogrel Bisulfate 75 Mg Tab) 75 mg PO DAILY RICKY Stop: 07/20/24 08:59 Last Admin: 07/08/24 08:06 Dose: 75 mg Cyanocobalamin (Cyanocobalamin (B-12) 500 Mcg Tablet) 1,000 mcg PO QAM [facility] Stop: 07/20/24 08:59 Last Admin: 07/08/24 08:05 Dose: 1,000 mcg Dextrose (Dextrose 50% 50 Ml Syringe) 25 - 50 ml IV UD PRN; Protocol PRN Reason: Hypoglycemia Protocol Stop: 07/20/24 01:02 Docusate Sodium (Docusate Sodium 100 Mg Cap) 100 mg PO BID RICKY Stop: 07/20/24 08:59 Last Admin: 07/08/24 08:14 Dose: 100 mg Duloxetine HCl (Duloxetine Hcl 60 Mg Cap) 60 mg PO DAILY RICKY Stop: 07/20/24 08:59 Last Admin: 07/08/24 08:05 Dose: 60 mg Glucagon (Glucagon For Inj 1 Mg Vial) 1 mg SQ UD PRN; Protocol PRN Reason: Hypoglycemia Protocol Stop: 07/20/24 01:02 Glucose (Glucose 40% Gel 15 Gm Tube) 15 - 30 gm PO UD PRN; Protocol PRN Reason: Hypoglycemia Protocol Stop: 07/20/24 01:02 Glucose (Glucose 10 Tab/Tube) 4 - 8 tab PO UD PRN; Protocol PRN Reason: Hypoglycemia Protocol Stop: 07/20/24 01:02 Guaifenesin/Codeine Phosphate (Guaifenesin/Codeine 100mg/10mg 5ml Udc) 5 ml PO Q6H PRN PRN Reason: Cough Stop: 07/22/24 11:24 Hydralazine HCl (Hydralazine Hcl 25 Mg Tab) 25 mg PO TID PRN PRN Reason: Hypertension Stop: 07/20/24 08:59 Last Admin: 07/06/24 18:06 Dose: 25 mg Hydroxyzine HCl (Hydroxyzine Hcl 25 Mg Tab) 50 mg PO HS RICKY Stop: 08/03/24 20:59 Last Admin: 07/07/24 20:52 Dose: 50 mg Prochlorperazine 5 mg/ Syringe 5 mls @ 5 mls/min IV Q6H PRN PRN Reason: Nausea And Vomiting Stop: 07/27/24 18:30 Last Admin: 07/08/24 11:13 Dose: 5 mls/min Insulin Aspart (Insulin Aspart Per Unit Charge) 0 units SC ACHS [facility] Stop: 07/20/24 07:29 Last Admin: 07/08/24 12:27 Dose: Not Given Insulin Glargine (Lantus Per Unit Charge) 5 units SQ BID RICKY Stop: 07/20/24 08:59 Last Admin: 07/08/24 08:42 Dose: 5 units Lidocaine (Lidocaine 5% 1 Patch) 1 patch TD QAM RICKY Stop: 07/20/24 08:59 Last Admin: 07/08/24 08:08 Dose: 1 patch Lisinopril (Lisinopril 10 Mg Tab) 10 mg PO DAILY [facility] Stop: 08/07/24 08:59 Last Admin: 07/08/24 11:13 Dose: 10 mg Magnesium Oxide (Magnesium Oxide 400 Mg Tab) 400 mg PO QPM RICKY Stop: 07/31/24 20:59 Last Admin: 07/07/24 20:42 Dose: 400 mg Melatonin (Melatonin 3 Mg Tab) 3 mg PO HS PRN PRN Reason: Insomnia Stop: 07/20/24 00:39 Last Admin: 07/06/24 22:03 Dose: 3 mg Methadone HCl (Methadone Hcl 5 Mg Tab) 7.5 mg PO Q6H PRN PRN Reason: Moderate to Severe Pain Stop: 07/18/24 10:41 Metoprolol Succinate (Metoprolol Succ 50mg Ext Rel Tab) 50 mg PO QAM [facility] Stop: 07/20/24 08:59 Last Admin: 07/08/24 08:06 Dose: 50 mg Miscellaneous (Carbohydrates For Hypoglycemia ) 15 - 30 gm PO UD PRN PRN Reason: Hypoglycemia Protocol Stop: 07/20/24 01:02 Miscellaneous (Remove Lidoderm Patch) 1 each N/A DAILY@2100 [facility] Stop: 07/20/24 20:59 Last Admin: 07/07/24 20:43 Dose: 1 each Nifedipine (Nifedipine Extended Rel 30 Mg Tabcr) 120 mg PO QAM [facility] Stop: 07/24/24 08:59 Last Admin: 07/03/24 07:55 Dose: Not Given Nystatin (Nystatin Susp 500,000 U/5 Ml Udc) 5 ml PO QID [facility] Stop: 07/15/24 16:59 Last Admin: 07/08/24 12:28 Dose: 5 ml Oxycodone HCl (Oxycodone Hcl Ir 30 Mg Tab (Immediate Release)) 30 mg PO Q6H PRN PRN Reason: Breakthrough Pain Stop: 07/22/24 12:57 Pantoprazole Sodium (Pantoprazole 40 Mg Tab) 40 mg PO BID [facility] Stop: 07/30/24 20:59 Last Admin: 07/08/24 08:06 Dose: 40 mg Phenol (Chloraseptic (Phenol) 1.4% Soln 180 Ml Btl) 1 sprays MT Q4H PRN PRN Reason: Sore Throat Stop: 08/03/24 16:42 Polyethylene Glycol (Polyethylene (Miralax) 17 Gm Pack) 17 gm PO BID [facility] Stop: 07/20/24 08:59 Last Admin: 07/08/24 08:14 Dose: 17 gm Pregabalin (Pregabalin 100 Mg Cap) 100 mg PO TID [facility] Stop: 07/20/24 08:59 Last Admin: 07/08/24 12:47 Dose: 100 mg Ropinirole HCl (Ropinirole Hcl 2 Mg Tablet) 8 mg PO HS [facility] Stop: 07/20/24 20:59 Last Admin: 11/25/24 20:43 Dose: 8 mg Sennosides (Senna 8.6 Mg Tab) 17.2 mg PO BID [facility] Stop: 08/01/24 11:29 Last Admin: 07/08/24 08:14 Dose: 17.2 mg Vitamin D (Cholecalciferol 25 Mcg (1000 Units) Tab) 25 mcg PO QAM [facility] Stop: 08/01/24 08:59 Last Admin: 07/08/24 08:05 Dose: 25 mcg PG Care Time/CCT Total # of Minutes Spent Total Time Spent with Patient: Total time spent is greater than 50% in coordination of care (as documented) at patient's floor/unit and/or counseling patient: Coding [place] [address] SUB INP/OBS CARE 2/35MIN Patient Type Established History Expanded Problem Focused Exam Expanded Problem Focused Medical Decision Making Moderate Complexity Diagnoses Abdominal pain R10.9 Chronic pain syndrome G89.4 HTN (hypertension) I10 PAD (peripheral artery disease) I73.9 Esophagitis determined by endoscopy K20.90 History of tobacco use Z87.891 Neural foraminal stenosis of lumbar spine M48.061 Pneumonia J18.9 Laterality: left Lung location: lower lobe of lung Pneumonia type: due to unspecified organism (8) Pneumonia Laterality: left Lung location: lower lobe of lung Pneumonia type: due to unspecified organism Qualified Code(s): J18.9 - Pneumonia, unspecified organism
[2024-07-08] MEDS: oxyCODONE HCL IR 30 MG TAB (IMMEDIATE RELEASE) PO PRN (14:42)
[2024-07-08] MEDS: METHADONE HCL 5 MG TAB PO SCH (16:26)
--- NOTE | 2024-07-09 08:29 | Hospitalist Progress Note ---
Date of Service July 09, 2024 Assessment & Plan (1) Abdominal pain: Plan: Epigastric pain, in the context of Chronic pain syndrome Iron deficiency anemia with superimposed B12 deficiency Constipation likely related to opiates Patient was seen by GI for hematemesis She had a recent EGD in May 2024 which showed grade D esophagitis GI did not recommend endoscopy at this point and recommended treating with PPI: She was initially treated with IV PPI which is being changed to oral PPI H&H is stable Patient is on chronic opiates at home-Palliative care is following with her regarding pain management Patient has epigastric pain which is different from her chronic pain CTA of the abdomen pelvis from 07/01/2024 shows mild atheromatous plaque within the SMA, no flow-limiting stenosis. No significant plaque within the celiac artery. Patient to follow-up with her vascular surgeon Dr. Fuentes as outpatient for severe PAD Bowel regiment: , follow up xray with improved stool burden Continue MiraLAX twice a day, senna twice a day, Linzess daily: Soapsuds enema x 1 dose today (2) Type 2 diabetes mellitus: Plan: Insulin-dependent type 2 diabetes mellitus with diabetic neuropathy A1c 7.1 (06/03/2024) Continue Lantus 5 units subcutaneous twice daily Accu-Cheks before every meal and nightly sliding scale insulin coverage Continue Lyrica 100 mg p.o. 3 times has associated diabetic renal disease and anemia of chronic inflammation (plus iron deficiency anemia) (3) Generalized anxiety disorder: Plan: Anxiety/depression Awaiting psychiatry consult Palliative care stop Seroquel since they are starting methadone Continue duloxetine per psychiatry recommendations Xanax as needed Psychiatry saw the patient and recommended Abilify 2.5 mg p.o. daily. I spoke with psychiatrist Dr. Espinosa via secure chat on 07/04/24: Informed him that palliative care has stopped Seroquel He is recommending replace Seroquel with Vistaril 50 mg p.o. nightly Patient reports that she is sleeping much better with Vistaril and Seroquel and would like to continue it as outpatient (4) HTN (hypertension): Plan: Essential hypertension Peripheral arterial disease Nonobstructive coronary disease Blood pressure medications were held due to hypotension causing dizziness and fall Now that IV Dilaudid has been slowly weaned down, blood pressure has improved Resumed lisinopril at low-dose of 10 mg daily with hold parameters Continue clonidine to 0.1 mg p.o. twice daily with hold parameters Continue Toprol-XL with hold parameters Continue aspirin and Plavix Continue to monitor orthostatic vital signs while patient is on IV Dilaudid Hydralazine as needed for hypertension Palliative care is planning on stopping IV Dilaudid today and continuing with oral methadone (5) B12 deficiency: (6) Neural foraminal stenosis of lumbar spine: Plan 59-year-old female with past medical history of insulin-dependent type 2 diabetes mellitus, peripheral arterial disease status post right BKA, essential hypertension, chronic pain syndrome on chronic opiates, grade D esophagitis from recent EGD in May 2024, gastroparesis who presented to the ED with vomiting, coughing, fever and chills and was found to have a left lower lobe pneumonia with sepsis Palliative care is planning on stopping IV Dilaudid today and continuing with oral methadone Awaiting palliative care follow-up today regarding pain meds/methadone: As per palliative care, patient's outpatient PCP has agreed to prescribing methadone as outpatient Left lower lobe pneumonia-resolved levofloxacin 750 mg p.o. x 5 days for pneumonia and patient finish 5 days of treatment on 07/01/2024 - CTA chest 06/30 no PE, pleural effusion or pneumonia Two-view chest x-ray from 07/05/2024 was clear Rapid bio fire from 07/05/2024 was negative Strep PCR from 07/05/2024 was negative Sputum culture from 07/05/2024 showed heavy normal adithya Continue scheduled nebulizers Awaiting palliative care follow-up today regarding pain meds/methadone: As per palliative care, patient's outpatient PCP has agreed to prescribing methadone as outpatient CODE STATUS: Full code DVT prophylaxis: Bilateral SCD. Patient also on aspirin and Plavix. She bled while being on heparin subcutaneous for DVT prophylaxis Discharge planning tentatively on 07/09/2024 with home health services based on palliative care recommendations and if medically stable. I spoke with palliative care team and they will give patient a prescription for methadone on discharge and the PCP will continue prescribing methadone Care plan discussed with patient, nursing staff and palliative care team Admission and Anticipated Discharge Date Admission Date: June 20, 2024 Results & Data Results & Data Vital Signs (Past 12 Hours) Vital Signs Temp Pulse Resp BP Pulse Ox O2 Del Method 07/09/24 07:57 98.4 F 83 16 120/69 93 Room Air 07/09/24 07:38 16 07/09/24 07:02 84 16 91 Room Air 07/08/24 23:18 16 PG Care Time/CCT Total # of Minutes Spent Total Time Spent with Patient: Total time spent is greater than 50% in coordination of care (as documented) at patient's floor/unit and/or counseling patient: Coding Diagnoses Abdominal pain R10.9 Type 2 diabetes mellitus E11.69; Z79.4 Diabetes mellitus complication status: with other specified complication Diabetes mellitus emt intermediate insulin use: with fci use Generalized anxiety disorder F41.1 HTN (hypertension) I10 B12 deficiency E53.8 Neural foraminal stenosis of lumbar spine M48.061 (2) Type 2 diabetes mellitus Diabetes mellitus complication status: with other specified complication Diabetes mellitus emt intermediate insulin use: with fci use Qualified Code(s): E11.69 - Type 2 diabetes mellitus with other specified complication; Z79.4 - emt intermediate (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
--- NOTE | 2024-07-09 13:55 | Palliative Care Progress Note ---
Date of Service July 09, 2024 Assessment & Plan (1) Abdominal pain: (2) Chronic pain syndrome: (3) HTN (hypertension): (4) PAD (peripheral artery disease): (5) Esophagitis determined by endoscopy: (6) History of tobacco use: (7) Neural foraminal stenosis of lumbar spine: (8) Pneumonia: Plan 59-year-old female with past medical history of insulin-dependent type 2 diabetes mellitus, peripheral arterial disease status post right BKA, essential hypertension, chronic pain syndrome on chronic opiates, grade D esophagitis from recent EGD in May 2024, gastroparesis who presented to the ED with vomiting, coughing, fever and chills and was found to have a left lower lobe pneumonia which has resolved. Admission c/b intractable abdominal pain likely 2/2 constipation. #Epigastric pain #Chronic pain syndrome #Recent hematemesis: Resolved Patient was seen by GI for hematemesis, EGD in May 2024 which showed grade D esophagitis GI did not recommend endoscopy, recommended treating with PPI. Patient is on chronic opiates at home, currently with epigastric pain which is not consistent with her chronic pain and mesenteric ultrasound with stenosis in celiac and SMA. She states pain improved with addition of methadone and frequency of PRN use has decreased with increase to 7.5mg methadone q8h scheduled. OMEs Last 24h hour = 173.0 methadone 7.5mg Q8h scheduled x3 22..5mg = 105 OME methadone 5mg every 6hr PRN x1 5mg = 23.5 OME Oxycodone 30mg PO Q6hr PRN x 1 30mg = 45.0 OME 07/08 = 156.5 OME methadone dose increased to 7.5mg Q8h scheduled 07/07 = 181.5 OME 07/05 = 158 OME 07/04 = 134.5 Methadone intiated on 07/04 Repeat KUB (07/05) shows decreased stool burden as evidence of improved constipation. Increased methadone dose conservatively to 7.5mg PO Q6hr PRN. Changed dilaudid IV q6h PRN (1mg IV = 2.5mg PO = 12.5 OME) to PO oxycodone IR 30mg Q6h PRN (30mg PO = 45 OME) for breakthrough pain. Pt shared that po dilaudid does not offer any relief to her pain, most other long acting medications have copays that are cost prohibitive or not well tolerated by the pt. Goal will be to manage pt's pain mainly with long-acting medications and progressively decrease need for breakthrough immediate release medications. Counselled pt on opiate use for chronic pain vs breakthrough pain. Discussed addition of scheduled methadone for more consistent pain management. Pt continues to request IV pain medications for better pain control despite repeated education on equianalgesic dosing and benefits of PO medications. She continues to request BSRNs wake her through night when next prn dose is due. I have educated pt again on use of PRN medication for breakthrough pain and encourages BSRNs to only give PRN medications when requested by pt per orders and not awaken pt for medications. Pt remains resistant to change of PRN dilaudid to methadone PO for breakthrough pain. She shared that her pain is well managed on current regime ( Methadone 7.5mg PO q8h scheduled with methadone 2.5mg Q4h PRN for breakthrough pain) but again requested one more dose of Iv dilaudid prior to discharge. Helped pt understand that giving her IV medication when she is able to take PO and pain is per her admission well managed with PO medications would be counter productive to achieving her goal of discharge to home. Again discussed that she is medically cleared for discharge, and her PCP Dr Vernon has agreed to prescribe and manage her methadone as outpt. Reinforsed prior education on chronic pain, helped her understand that complete relief of pain may not be a realistic goal. Discussed above plan for ongoing pain management with attdg Dr Clemons, he is in agreement with above plan, expected discharge to home today with pt's spouse transporting her home. Medical mgmt per primary #Left lower lobe pneumonia - improved #Insulin-dependent type 2 diabetes mellitus with diabetic neuropathy A1c 7.1 (06/03/2024) #Iron deficiency anemia with superimposed B12 deficiency #Essential hypertension #Peripheral arterial disease #Nonobstructive coronary disease Admission and Anticipated Discharge Date Admission Date: June 20, 2024 Subjective pt assessed at bedside. She was awake, alert, oriented and pleasantly communicative. NAD on RA. No visitors at bedside. Pt reports she wa able to sleep last night and pain much improved after increase of methadone with only 3 PRNs in past 24hr for breakthrough pain. Plan for discharge to home today. Review of Systems Constitutional: as per Subjective / HPI, + malaise and + weakness Eyes: PERRLA Ear, Nose, Mouth, Throat: no dizziness, no nasal congestion, no sinus pain/pressure and no sore throat Respiratory: no cough, no chest congestion and no hemoptysis Cardiovascular: no chest pain, no dyspnea at rest, no dyspnea on exertion and no palpitations Gastrointestinal: + abdominal pain (improved, RUQ to LUQ), + bloating and + constipation; no dysphagia and no constant urge to pass stools Genitourinary: no problem reported Musculoskeletal: + muscle weakness Integumentary: no problem reported Neurologic: no problem reported Physical Exam Constitutional: WD/WN, vitals as above Eyes: PERRLA, EOMi ENMT: external ear and nose normal, oropharynx normal Neck: trachea midline, no thyromegaly Respiratory: normal respiratory effort, lungs clear to auscultation Cardiovascular: RRR, s1s2 Gastrointestinal (Abdomen): Inspection/Auscultation: + abdomen distended and + hyperactive bowel sounds Percussion/Palpation: + abdomen tender ([place] upper quads ), + guarding and abdomen soft; no ascites Musculoskeletal: generalized weakness, no focal deficits Skin: no rashes, warm and dry Neurologic: grossly neurologically intact, no focal deficits noted Psychiatric: Orientation: alert and oriented x 3 Eye Contact: good eye contact Speech: normal rate/rhythm/volume of speech Thought Process: clear/coherent thought process Results & Data Vital Signs (Past 12 Hours) Vital Signs Temp Pulse Resp BP Pulse Ox O2 Del Method 07/09/24 07:57 36.9 C 83 16 120/69 93 Room Air 07/09/24 07:38 16 07/09/24 07:02 84 16 91 Room Air Laboratory Results Abnormal lab results 07/08/24 07/08/24 07/09/24 Range/Units 16:41 19:12 07:54 POC Glucose 156 H 160 H 174 H (70-99) mg/dl 07/09/24 Range/Units 11:28 POC Glucose 116 H (70-99) mg/dl Diagnostic Findings Lumbar Spine MRI 06/24/24 13:21 Exam(s): MRI L SPINE W/WO Contrast IV Amt: 6cc gadavist EXAM: MR Lumbar Spine Without and With Intravenous Contrast CLINICAL HISTORY: Reason for exam: back pain. TECHNIQUE: Magnetic resonance images of the lumbar spine without and with intravenous contrast in multiple planes. CONTRAST: Patient received 6cc gadavist of IV contrast COMPARISON: Prior MRI of the lumbar spine from December 04, 2023. FINDINGS: This study is limited secondary to motion artifact. Vertebrae: There are 5 lumbar type vertebral bodies with a mild generalized curved to the right and normal lumbar lordosis. There is a mild grade 1 anterolisthesis of L4 and L5 measuring 3 mm. Patient is status post posterior fusion of L5 and S1 with transpedicular screws and connecting rods in place. Status post posterior decompression of S1. The bone marrow signal is heterogeneous with reactive endplate changes at L5-S1. No acute fracture. Spinal cord: The conus is normal size, shape and signal characteristics, terminate T12-L1 No abnormal enhancement. Soft tissues: Advanced atrophy of the iliopsoas, paraspinous intraspinous musculature. The aorta and IVC flow voids are intact. The visualized kidneys are unremarkable. DISCS/SPINAL CANAL/NEURAL FORAMINA: L1-L2: Unremarkable. No significant disc disease. No stenosis. L2-L3: Unremarkable. No significant disc disease. No stenosis. L3-L4: There is mild disc degeneration with annular disc bulge causing a mild subarticular recess stenosis with disc extending into the neural foramina without some impingement or significant stenosis. L4-L5: Moderate disc degeneration with annular disc bulge causing a mild right and moderate left subarticular recess stenosis with mild impingement of the transiting left L5 nerve root. There is disc and osteophyte extending to the neural foramina causing a moderate right and moderately severe left stenosis with impingement of the bilateral L4 nerve or ganglia. L5-S1: Advanced disc degeneration with disc and osteophyte extending to the neural foramina causing mild bilateral neuroforaminal stenosis without evidence of neural impingement. IMPRESSION: 1. Moderate disc degeneration at L4-5 and mild disc degeneration at L3-4 with annular disc bulging causing a mild subarticular recess stenosis at L3-4 and mild right and moderate left subarticular recess stenosis at L4- 5 with mild impingement of the transiting left L5 nerve root. 2. There is no spinal canal stenosis. 3. There is moderate right and moderately severe left L4-5 and mild bilateral L5-S1 neural foraminal stenosis with impingement of the bilateral L4 nerve or ganglia. 4. No evidence of fracture, infection, tumor or arachnoiditis. Electronically signed by: Betsey Steward MD 06/25/24 01:23 AM Thoracic Spine MRI 06/27/24 10:32 MR thoracic spine wo con HISTORY: 59 years-old Female eval for occult fx or infection given back pain with clinical concern for discitis/osteomyelitis COMPARISON: MRI lumbar spine 06/24/2024, MRI thoracic spine 12/04/2023 TECHNIQUE: Multiplanar multisequence MRI of the thoracic spine was obtained without IV contrast FINDINGS: Moderate to marked motion degradation. No fracture or subluxation. Paravertebral soft tissues are unremarkable. 12 mm right renal T2 hyperintense lesion, likely a cyst. Mild disc space narrowing within the mid thoracic spine most pronounced at the T6-T7 and T7-T8 levels. Mild multilevel facet arthrosis. The thoracic spinal cord appears to demonstrate a normal signal intensity but is suboptimally a ssessed due to the motion artifact. There is a 4 mm central central disc protrusion at T7-T8 which abuts but does not significantly deform the anterior thoracic spinal cord, unchanged. No significant central canal or neural foraminal narrowing at this level. Small broad- based posterior disc bulges at T6-T7 and T9-T10 without significant central canal or neural foraminal narrowing. IMPRESSION: 1. Motion degraded exam without acute fracture, subluxation, endplate erosion or significant bone marrow edema. 2. Mild degenerative changes of the thoracic spine, unchanged compared to the 12/04/2023 study. 3. Normal signal of the visualized thoracic spinal cord. ACT 112: Negative or not required by law. The above report was generated using voice recognition software. It may contain grammatical, syntax or spelling errors. Electronically signed by: Puneet Howard M.D. 06/27/2024 3:07 PM Chest CTA 06/30/24 08:23 CT ANGIOGRAPHY OF THE CHEST, PULMONARY EMBOLUS PROTOCOL CLINICAL HISTORY: Pleuritic pain. Evaluate for pulmonary embolus. COMPARISON STUDY: Chest radiograph June 27, 2024. Chest CT October 02, 2022. TECHNIQUE: Following IV administration of 112 mL of Optiray, helical axial images of the chest were obtained utilizing the pulmonary embolus protocol. Maximal intensity projections and sagittal and coronal reformats were viewed on an independent 3D workstation. IV contrast was administered without complication. Automated exposure control was utilized for the study. A dose lowering technique was utilized adhering to the principles of ALARA. CT DOSE: 674.59 mGy.cm FINDINGS: No pulmonary emboli are identified. There is no thoracic aortic dissection. Size of the heart is normal. There is no pericardial effusion. Advanced coronary artery calcification is again noted. There is no pneumothorax or pleural fusion. There is no consolidation to suggest pneumonia. Emphysema is present. A 1.6 cm subpleural groundglass opacity with cystic spaces within the right lower lobe on image 125 remains unchanged. There are no fractures within the visualized bony thorax. Visualized portions of the upper abdomen are unremarkable. IMPRESSION: 1. No pulmonary emboli identified. 2. No consolidation to suggest pneumonia. 3. Emphysema. ACT 112: Negative or not required by law. Electronically signed by: Wilver Powell M.D. 06/30/2024 11:00 AM Mesenteric US 06/30/24 14:11 Exam(s): US OTHER US duplex mesenteric EXAM: US Duplex Arterial/Venous of the mesenteric vasculature CLINICAL HISTORY: Reason for exam: severe vascular dz, persistent upper abdominal johnathan. TECHNIQUE: Real-time duplex ultrasound scan of the abdomen integrating B-mode two- dimensional vascular structure, Doppler spectral analysis and color flow Doppler imaging. COMPARISON: CT 06/02/2024 FINDINGS: Aorta: C=380lj/s. Celiac artery: B=723bt/s. SMA: Zmyqzw=635at/s. Prox=*450cm/s. Ziz=617lm/s. Eaowcf=986nf/s. MARTIN not visualized due to bowel gas. Minimal plaque seen in aorta, celiac and SMA. Increased velocity in proximal SMA. IMPRESSION: 1. Markedly increased velocity within the SMA but very little plaque. Suggested 70-99% stenosis by peak systolic velocity of 450 cm/s. 2. Increased velocity within the celiac artery without visualized plaque. Suggested less than 70% stenosis by peak systolic velocity of 199 cm/s. Electronically signed by: Charlie Fleming MD 06/30/24 20:05 PM Abdomen/Pelvis CTA 07/01/24 17:06 Exam(s): CTA ABDOMEN + PELVIS With Contrast IV Amt: 119 cc opti 320 EXAM: CT Angiography Abdomen and Pelvis With Intravenous Contrast CLINICAL HISTORY: Reason for exam: pain, abnormal mesenteric US. TECHNIQUE: Axial computed tomographic angiography images of the abdomen and pelvis with intravenous contrast. CTDI is 36 mGy and DLP is 985.57 mGy-cm. Automated exposure control was utilized for the study. A dose lowering technique was utilized adhering to the principles of ALARA. MIP reconstructed images were created and reviewed. CONTRAST: Patient received 119 cc opti 320 of IV contrast COMPARISON: Ultrasound 06/30/2024, CT abdomen pelvis 06/02/2024 FINDINGS: VASCULATURE: Aorta: Normal caliber aorta. Mild nonflow limiting atheromatous disease. No dissection. Celiac trunk and mesenteric arteries: Mild atheromatous plaque within the SMA. No significant plaque within the celiac artery. No significant stenosis within the inferior mesenteric artery. Renal arteries: No acute findings. No occlusion or significant stenosis. Iliac arteries: Plaque within the right common and right external iliac arteries causing moderate to severe stenosis. Moderate stenosis within the right internal iliac artery. Atheromatous plaque within the left external iliac artery causing mild stenosis. Mild to moderate stenosis in the left internal iliac artery. -Severe stenosis in the proximal right SFA. -Moderate to severe stenosis in the proximal left SFA. Lung bases: Unremarkable. No mass. No consolidation. ABDOMEN: Liver: Unremarkable. No mass. Gallbladder and bile ducts: Cholecystectomy. No ductal dilation. Pancreas: Unremarkable. No ductal dilation. No mass. Spleen: Unremarkable. No splenomegaly. Adrenals: Unremarkable. No mass. Kidneys and ureters: Unremarkable. No hydronephrosis. No solid mass. Stomach and bowel: Excess stool throughout the colon consistent with constipation. No inflammatory changes or evidence of mesenteric ischemia. No obstruction. No mucosal thickening. PELVIS: Appendix: No findings to suggest acute appendicitis. Bladder: Unremarkable. No mass. Reproductive: Unremarkable as visualized. ABDOMEN and PELVIS: Intraperitoneal space: Unremarkable. No significant fluid collection. No free air. Bones/joints: No acute fracture. No dislocation. Soft tissues: Unremarkable. Lymph nodes: Unremarkable. No enlarged lymph nodes. Other findings: IMPRESSION: 1. Mild atheromatous plaque within the SMA. No flow-limiting stenosis. 2. No significant plaque within the celiac artery. 3. Plaque within the right common and right external iliac arteries causing moderate to severe stenosis. 4. Severe stenosis in the proximal right SFA. 5. Moderate to severe stenosis in the proximal left SFA. 6. Excess stool throughout the colon consistent with constipation. No inflammatory changes or evidence of mesenteric ischemia. Electronically signed by: Charlie Fleming MD 07/01/24 23:31 PM Forearm X-Ray 07/03/24 07:34 XR forearm RT 2V HISTORY: 59 years-old Female FALL WITH TRAUMA acute pain of the right upper extremity status post fall COMPARISON: Humerus radiographs of same day TECHNIQUE: 2 views of the right forearm FINDINGS: Osteoarthritis of the wrist and elbow. No acute fracture, dislocation or opaque foreign body. There is mid forearm soft tissue swelling. IMPRESSION: No acute fracture or dislocation. ACT 112: Negative or not required by law. The above report was generated using voice recognition software. It may contain grammatical, syntax or spelling errors. Electronically signed by: Puneet Howard M.D. 07/03/2024 8:45 AM Humerus X-Ray 07/03/24 07:34 XR humerus RT 2V CLINICAL HISTORY: FALL WITH TRAUMA COMPARISON: Right shoulder radiographs June 17, 2022. FINDINGS: There are no fractures within the right humerus. Alignment of the right elbow and right shoulder is anatomic. There are no osseous lesions. There is moderate joint space narrowing and osteophytosis of the right acromioclavicular joint. IMPRESSION: 1. No fractures within the right humerus. 2. Moderate right AC joint osteoarthritis. ACT 112: Negative or not required by law. Electronically signed by: Wilver Powell M.D. 07/03/2024 8:47 AM Ribs w/Chest X-Ray 07/03/24 07:34 XR ribs BI min 4V w [id number] CLINICAL HISTORY: FALL WITH TRAUMA COMPARISON: Chest radiograph June 27, 2024. Chest CT June 30, 2024. FINDINGS: There is no pneumothorax or pleural effusion. No airspace opacities are present. Pulmonary vascularity is normal. No rib fractures are identified. C ardiomediastinal silhouette is unremarkable. IMPRESSION: No pneumothorax. No rib fractures identified. ACT 112: Negative or not required by law. Electronically signed by: Wilver Powell M.D. 07/03/2024 8:45 AM Shoulder X-Ray 07/03/24 07:34 XR shoulder RT min 2V routine HISTORY: 59 years-old Female FALL WITH TRAUMA . Right shoulder pain status post fall COMPARISON: None TECHNIQUE: 3 views of the right shoulder FINDINGS: Mild glenohumeral with moderate AC joint osteoarthritis. No acute fracture, dislocation or opaque foreign body. The imaged lung cardozo appear clear. IMPRESSION: No acute fracture or dislocation. ACT 112: Negative or not required by law. The above report was generated using voice recognition software. It may contain grammatical, syntax or spelling errors. Electronically signed by: Puneet Howard M.D. 07/03/2024 8:44 AM Chest X-Ray 07/05/24 10:31 XR chest 2V PA/lateral CLINICAL HISTORY: cough ?pneumonia COMPARISON STUDY: Chest CT June 30, 2024. Chest radiograph and bilateral rib radiographs July 03, 2024. FINDINGS: Lung volumes are normal. Lungs are clear. There is no pneumothorax or pleural effusion. Cardiac size is normal. Mediastinal contours are normal. There is no evidence for pulmonary edema. IMPRESSION: No acute cardiopulmonary findings. ACT 112: Negative or not required by law. Electronically signed by: Wilver Powell M.D. 07/05/2024 12:01 PM KUB X-Ray 07/05/24 10:31 KUB CLINICAL HISTORY: Constipation. COMPARISON STUDY: PA of the abdomen and pelvis July 01, 2024 and KUB July 03, 2024. FINDINGS: Postoperative findings within the spine and cholecystectomy clips are incidentally noted. The bowel gas pattern is normal. Ingested contents within the stomach are incidentally noted. There is a moderate amount of stool within the colon and rectum. This has decreased since prior exam. IMPRESSION: 1. No evidence for a bowel obstruction. 2. Moderate amount of stool within the colon and rectum, decreased since prior KUB. ACT 112: Negative or not required by law. Electronically signed by: Wilver Powell M.D. 07/05/2024 12:11 PM Medications Administered Current Inpatient Medications Acetaminophen (Acetaminophen 325 Mg Tab) 650 mg PO Q4H PRN PRN Reason: pain/fever Stop: 07/20/24 00:39 Last Admin: 06/24/24 11:08 Dose: 650 mg Albuterol (Albut/Ipratrop 3mg/0.5mg Neb 3 Ml Vial) 3 ml NEB Q6R PRN; Protocol PRN Reason: Shortness Of Breath Or Wheezing Stop: 07/20/24 02:31 Last Admin: 06/29/24 06:26 Dose: 3 ml Alprazolam (Alprazolam 0.5 Mg Tablet) 1 mg PO Q8H PRN PRN Reason: anxiety,insomnia Stop: 08/01/24 11:46 Last Admin: 07/09/24 09:13 Dose: 1 mg Aripiprazole (Aripiprazole 5 Mg Tab) 2.5 mg PO QAM [facility] Stop: 08/04/24 08:59 Last Admin: 07/09/24 08:05 Dose: 2.5 mg Aspirin (Aspirin 81 Mg Ectab) 81 mg PO QAM [facility] Stop: 07/30/24 08:59 Last Admin: 07/09/24 08:00 Dose: 81 mg Benzocaine (Benzocaine/Menthol 18 [place]/1 Box) 1 tiago MT Q4H PRN PRN Reason: Sore Throat Stop: 08/03/24 16:42 Benzocaine (Benzocaine 20% (Orajel) 11.9 Gm Tube) 1 appln MT Q4 PRN PRN Reason: oral ulcer Stop: 08/04/24 11:08 Last Admin: 07/06/24 13:30 Dose: 1 appln Bisacodyl (Bisacodyl 10 Mg Supp) 10 mg OH DAILY [facility] Stop: 07/10/24 08:59 Last Admin: 07/09/24 09:07 Dose: 10 mg Clonidine HCl (Clonidine Hcl 0.1 Mg Tab) 0.1 mg PO BID [facility] Stop: 08/02/24 20:59 Last Admin: 07/09/24 08:00 Dose: 0.1 mg Clopidogrel Bisulfate (Clopidogrel Bisulfate 75 Mg Tab) 75 mg PO DAILY [facility] Stop: 07/20/24 08:59 Last Admin: 07/09/24 08:01 Dose: 75 mg Cyanocobalamin (Cyanocobalamin (B-12) 500 Mcg Tablet) 1,000 mcg PO QAM [facility] Stop: 07/20/24 08:59 Last Admin: 07/09/24 08:01 Dose: 1,000 mcg Dextrose (Dextrose 50% 50 Ml Syringe) 25 - 50 ml IV UD PRN; Protocol PRN Reason: Hypoglycemia Protocol Stop: 07/20/24 01:02 Docusate Sodium (Docusate Sodium 100 Mg Cap) 100 mg PO BID [facility] Stop: 07/20/24 08:59 Last Admin: 07/09/24 07:37 Dose: 100 mg Duloxetine HCl (Duloxetine Hcl 60 Mg Cap) 60 mg PO DAILY [facility] Stop: 07/20/24 08:59 Last Admin: 07/09/24 08:02 Dose: 60 mg Glucagon (Glucagon For Inj 1 Mg Vial) 1 mg SQ UD PRN; Protocol PRN Reason: Hypoglycemia Protocol Stop: 07/20/24 01:02 Glucose (Glucose 40% Gel 15 Gm Tube) 15 - 30 gm PO UD PRN; Protocol PRN Reason: Hypoglycemia Protocol Stop: 07/20/24 01:02 Glucose (Glucose 10 Tab/Tube) 4 - 8 tab PO UD PRN; Protocol PRN Reason: Hypoglycemia Protocol Stop: 07/20/24 01:02 Guaifenesin/Codeine Phosphate (Guaifenesin/Codeine 100mg/10mg 5ml Udc) 5 ml PO Q6H PRN PRN Reason: Cough Stop: 07/22/24 11:24 Hydralazine HCl (Hydralazine Hcl 25 Mg Tab) 25 mg PO TID PRN PRN Reason: Hypertension Stop: 07/20/24 08:59 Last Admin: 07/06/24 18:06 Dose: 25 mg Hydroxyzine HCl (Hydroxyzine Hcl 25 Mg Tab) 50 mg PO HS [facility] Stop: 08/03/24 20:59 Last Admin: 07/08/24 19:30 Dose: 50 mg Prochlorperazine 5 mg/ Syringe 5 mls @ 5 mls/min IV Q6H PRN PRN Reason: Nausea And Vomiting Stop: 07/27/24 18:30 Last Admin: 07/09/24 01:51 Dose: 5 mls/min Insulin Aspart (Insulin Aspart Per Unit Charge) 0 units SC ACHS [facility] Stop: 07/20/24 07:29 Last Admin: 07/09/24 12:46 Dose: 3 units Insulin Glargine (Lantus Per Unit Charge) 5 units SQ BID [facility] Stop: 07/20/24 08:59 Last Admin: 07/09/24 08:22 Dose: 5 units Lidocaine (Lidocaine 5% 1 Patch) 1 patch TD QAM [facility] Stop: 07/20/24 08:59 Last Admin: 07/09/24 08:04 Dose: 1 patch Lisinopril (Lisinopril 10 Mg Tab) 10 mg PO DAILY [facility] Stop: 08/07/24 08:59 Last Admin: 07/09/24 07:54 Dose: Not Given Magnesium Oxide (Magnesium Oxide 400 Mg Tab) 400 mg PO QPM [facility] Stop: 07/31/24 20:59 Last Admin: 07/08/24 19:31 Dose: 400 mg Melatonin (Melatonin 3 Mg Tab) 3 mg PO HS PRN PRN Reason: Insomnia Stop: 07/20/24 00:39 Last Admin: 07/06/24 22:03 Dose: 3 mg Methadone HCl (Methadone Hcl 5 Mg Tab) 7.5 mg PO Q8H [facility] Stop: 07/22/24 16:00 Last Admin: 07/09/24 07:37 Dose: 7.5 mg Methadone HCl (Methadone Hcl 5 Mg Tab) 2.5 mg PO Q4H PRN PRN Reason: Break thru pain Stop: 07/22/24 16:17 Metoprolol Succinate (Metoprolol Succ 50mg Ext Rel Tab) 50 mg PO QAM [facility] Stop: 07/20/24 08:59 Last Admin: 07/09/24 08:00 Dose: 50 mg Miscellaneous (Carbohydrates For Hypoglycemia ) 15 - 30 gm PO UD PRN PRN Reason: Hypoglycemia Protocol Stop: 07/20/24 01:02 Miscellaneous (Remove Lidoderm Patch) 1 each N/A DAILY@2100 [facility] Stop: 07/20/24 20:59 Last Admin: 07/08/24 19:31 Dose: 1 each Nifedipine (Nifedipine Extended Rel 30 Mg Tabcr) 120 mg PO QAM [facility] Stop: 07/24/24 08:59 Last Admin: 07/03/24 07:55 Dose: Not Given Nystatin (Nystatin Susp 500,000 U/5 Ml Udc) 5 ml PO QID [facility] Stop: 07/15/24 16:59 Last Admin: 07/09/24 12:56 Dose: 5 ml Pantoprazole Sodium (Pantoprazole 40 Mg Tab) 40 mg PO BID [facility] Stop: 07/30/24 20:59 Last Admin: 07/09/24 08:00 Dose: 40 mg Phenol (Chloraseptic (Phenol) 1.4% Soln 180 Ml Btl) 1 sprays MT Q4H PRN PRN Reason: Sore Throat Stop: 08/03/24 16:42 Polyethylene Glycol (Polyethylene (Miralax) 17 Gm Pack) 17 gm PO BID [facility] Stop: 07/20/24 08:59 Last Admin: 07/09/24 07:41 Dose: 17 gm Pregabalin (Pregabalin 100 Mg Cap) 100 mg PO TID [facility] Stop: 07/20/24 08:59 Last Admin: 07/09/24 12:56 Dose: 100 mg Ropinirole HCl (Ropinirole Hcl 2 Mg Tablet) 8 mg PO HS [facility] Stop: 07/20/24 20:59 Last Admin: 07/08/24 19:31 Dose: 8 mg Sennosides (Senna 8.6 Mg Tab) 17.2 mg PO BID [facility] Stop: 08/01/24 11:29 Last Admin: 07/09/24 09:07 Dose: 17.2 mg Vitamin D (Cholecalciferol 25 Mcg (1000 Units) Tab) 25 mcg PO QAM [facility] Stop: 08/01/24 08:59 Last Admin: 07/09/24 08:03 Dose: 25 mcg PG Care Time/CCT Total # of Minutes Spent Total Time Spent with Patient: Total time spent is greater than 50% in coordination of care (as documented) at patient's floor/unit and/or counseling patient: C[place] [address] SUB INP/OBS CARE 2/35MIN Patient Type Established Medical Decision Making Moderate Complexity Diagnoses Abdominal pain R10.9 Chronic pain syndrome G89.4 HTN (hypertension) I10 PAD (peripheral artery disease) I73.9 Esophagitis determined by endoscopy K20.90 History of tobacco use Z87.891 Neural foraminal stenosis of lumbar spine M48.061 Pneumonia J18.9 Laterality: left Lung location: lower lobe of lung Pneumonia type: due to unspecified organism (8) Pneumonia Laterality: left Lung location: lower lobe of lung Pneumonia type: due to unspecified organism Qualified Code(s): J18.9 - Pneumonia, unspecified organism
[2024-07-09 14:18] VITALS: PULSE 70; TEMP 98.8; O2SAT 95
[2024-07-09 15:26] VITALS: RESP 18
[2024-07-09 16:07] VITALS: BP 121/59
--- NOTE | 2024-07-09 16:19 | Discharge Summary ---
Discharge Summary Date of Service July 09, 2024 Principal Dx & Hospital Course #1 = Principal Diagnosis (1) Abdominal pain: Epigastric pain, in the context of Chronic pain syndrome Iron deficiency anemia with superimposed B12 deficiency Constipation likely related to opiates Patient was seen by GI for hematemesis She had a recent EGD in May 2024 which showed grade D esophagitis GI did not recommend endoscopy at this point and recommended treating with PPI: She was initially treated with IV PPI which is being changed to oral PPI H&H is stable Patient is on chronic opiates at home-Palliative care is following with her regarding pain management Patient has epigastric pain which is different from her chronic pain CTA of the abdomen pelvis from 07/01/2024 shows mild atheromatous plaque within the SMA, no flow-limiting stenosis. No significant plaque within the celiac artery. Patient to follow-up with her vascular surgeon Dr. Fuentes as outpatient for severe PAD Bowel regiment: , follow up xray with improved stool burden Continue laxatives and hydration at home (2) Type 2 diabetes mellitus: Insulin-dependent type 2 diabetes mellitus with diabetic neuropathy A1c 7.1 (06/03/2024) Continue home diabetic regiment Continue Lyrica 100 mg p.o. 3 times has associated diabetic renal disease and anemia of chronic inflammation (plus iron deficiency anemia) (3) Generalized anxiety disorder: Anxiety/depression Awaiting psychiatry consult Palliative care stop Seroquel since they are starting methadone Continue duloxetine per psychiatry recommendations Psychiatry saw the patient and recommended Abilify 2.5 mg p.o. daily. I spoke with psychiatrist Dr. Espinosa via secure chat on 07/04/24: Informed him that palliative care has stopped Seroquel He is recommending replace Seroquel with Vistaril 50 mg p.o. nightly Patient reports that she is sleeping much better with Vistaril and Seroquel and would like to continue it as outpatient (4) HTN (hypertension): Essential hypertension Peripheral arterial disease Nonobstructive coronary disease Blood pressure medications were held due to hypotension causing dizziness and fall Now that IV Dilaudid has been slowly weaned down, blood pressure has improved Resumed lisinopril at low-dose of 10 mg daily with hold parameters Continue clonidine to 0.1 mg p.o. twice daily with hold parameters Continue Toprol-XL with hold parameters Continue aspirin and Plavix stopping nifedipine at discharge (5) B12 deficiency: (6) Neural foraminal stenosis of lumbar spine: Plan 59-year-old female with past medical history of insulin-dependent type 2 diabetes mellitus, peripheral arterial disease status post right BKA, essential hypertension, chronic pain syndrome on chronic opiates, grade D esophagitis from recent EGD in May 2024, gastroparesis who presented to the ED with vomiting, coughing, fever and chills and was found to have a left lower lobe pneumonia with sepsis Palliative care is planning on stopping IV Dilaudid today and continuing with oral methadone after discharge 7.5 mg q8 hrs Left lower lobe pneumonia-resolved levofloxacin 750 mg p.o. x 5 days for pneumonia and patient finish 5 days of treatment on 07/01/2024 - CTA chest 06/30 no PE, pleural effusion or pneumonia Two-view chest x-ray from 07/05/2024 was clear Rapid bio fire from 07/05/2024 was negative Strep PCR from 07/05/2024 was negative Sputum culture from 07/05/2024 showed heavy normal adithya CODE STATUS: Full code Care plan discussed with patient, nursing staff and palliative care team Notes For Next Care Provider pt has issues with opiate induced constipation, may benefit from vasc surgery opinion regarding bowel perfusion although pain is not classic for intestinal angina pt overall very displeased and wanted more pain medication, parenterally, on the day of discharge Admission HPI Per Admitting Provider Pt is a 59 yo female with PMH of GERD, gastroparesis, HTN, PAD, DM, and chronic pain (on chronic opioids) presenting to the hospital d/t nausea/vomiting. Pt notes over the last two days she has been vomiting, coughing, and with fevers/chills. She states she is in a lot of pain in her ribs due to coughing and "not being able to keep her percocet down." Upon further clarification, pt is on oxycodone at home, not percocet. Pt also notes abdominal pain, mostly in the epigastric region, and describes it as a burning. She notes she had an EGD when she was here recently. In the ER, pt was given a duoneb treatment, compazine x1, tylenol 1000mg x1, 1L NS, doxy 100mg x1, pantoprazole 40 mg IV x1, and pepcid 20 mg x1. Discharge Exam awake, flat affect, c/o abdominal pain Discharge Plan Discharge Items Patient Disposition: Home - Self-Care Reason For Visit: PNA Discharge Diagnosis: intractable pain severe Peripheral artery disease pneumonia Condition on Discharge: Good Activity: Resume your previous activity Non-emergency contact: Primary Care Provider Call non-emergency contact if: you have any medication questions and your symptoms worsen Follow-up/Referrals: Vince Vernon, [Primary Care Provider] - Diet: Regular Addtl Attending Provider Instructions: Mrs Eduar, your pain is likely contributed to by your peripheral artery disease, we are trying to control your pain with methadone, please follow up with your primary care provider to continue to assess your pain and adjust your medicine. You may consider following up with an outpt vascular surgery provider to discuss if your peripheral artery disease is contributing to your pain Pending Studies at Discharge: No Stand-Alone Forms: My [employer], Smoking Cessation Medications and DC Order Prescriptions: New doxycycline hyclate 100 mg Capsule 100 mg PO BID Qty: 14 0RF hydroxyzine HCl 25 mg Tablet 50 mg PO HS Qty: 30 0RF aripiprazole [Abilify] 5 mg Tablet 2.5 mg PO QAM Qty: 30 0RF Continued methadone 5 mg tablet See Rx Instructions PO Q8H 30 Days Qty: 180 0RF Rx Instructions: 1.5 tab by mouth at 7am, 3pm, 10pm and may take a half a tablet every 4 hr in between ONLY IF NEEDED for breakthrough pain, hold for somnolence or resp rate below 14/minute orally every 8 hours; prochlorperazine maleate 5 mg tablet 5 mg PO TID PRN (Reason: Nausea) insulin glargine [Lantus Solostar U-100 Insulin] 100 unit/mL (3 mL) insulin pen 10 unit SUBCUT HS metoprolol succinate [Toprol XL] 50 mg tablet extended release 24 hr 50 mg PO QAM albuterol sulfate 90 mcg/actuation HFA aerosol inhaler 2 puff INHALATION QID PRN (Reason: Shortness Of Breath Or Wheezing) docusate sodium 100 mg Capsule 100 mg PO BID alprazolam 1 mg tablet 1 mg PO TID PRN (Reason: Anxiety) clopidogrel [Plavix] 75 mg tablet 75 mg PO DAILY Qty: 30 0RF hydralazine 25 mg tablet 25 mg PO TID aspirin 81 mg Tablet,Delayed Release (Dr/Ec) 81 mg PO DAILY lidocaine 5 % Adhesive Patch,Medicated 1 patch transdermal QAM Qty: 14 0RF clonidine HCl 0.1 mg Tablet 0.1 mg PO Q8H Qty: 90 0RF pregabalin [Lyrica] 100 mg Capsule 100 mg PO TID Qty: 90 0RF polyethylene glycol 3350 [Miralax] 17 gram Powder In Packet 17 g PO BID Qty: 0 0RF Rx Instructions: 1 capful twice a day for constipation, buy over the counter sennosides [Senokot] 8.6 mg Tablet 17.2 mg PO BID PRN (Reason: constipation) Qty: 60 0RF cyanocobalamin (vitamin B-12) 500 mcg Tablet 1,000 mcg PO QAM Qty: 30 0RF naloxone 4 mg/actuation spray,non-aerosol 4 mg intranasal ONCE PRN (Reason: opioid overdose) Qty: 2 0RF Rx Instructions: call 911 if used, may repeat dose if ineffective ropinirole 4 mg tablet 8 mg PO HS Fiasp FlexTouch U-100 Insulin 100 unit/mL (3 mL) insulin pen 5 unit SUBCUT TIDM duloxetine 60 mg capsule,delayed release(DR/EC) 60 mg PO DAILY lisinopril 20 mg Tablet 20 mg PO DAILY sucralfate [Carafate] 100 mg/mL suspension 1 g PO ACHS Qty: 200 0RF rabeprazole 20 mg tablet,delayed release (DR/EC) 20 mg PO DAILY 56 Days Qty: 56 0RF Discontinued nifedipine 60 mg tablet extended release 24hr 120 mg PO DAILY Discharge Orders: Discharge Order (Routine); Ordered 07/09/24 Ordered By: Ashok Nava/Other Patient Handouts: Preventing Pneumonia Admission Data Admit Date/Time: 06/20/24 00:41 Attending Provider: Ashok Clemons Admit Provider: Jayson Staton Primary Care Provider: Vince Vernon Other Providers: Jayson Staton; Haroldo Gant; Mayur Zheng Erica K.; Anil Jansen; Arpita Iyer; Kristina Molina; Dalton Espinosa; Tran Estrella Hospital Stay Data Consultations 06/20/24 00:03 ED Decision to Admit Stat 06/20/24 10:39 Consult Gastroenterology Routine 06/26/24 13:58 Consult Palliative Care Routine 07/03/24 15:56 Consult Psychiatry Routine Diagnostic Imagining Performed 06/24/24 13:21 MRI Lumbar Spine [MR lumbar spine wo/w con] Routine 06/27/24 10:32 MR thoracic spine wo con Routine 06/30/24 08:23 CT angio chest PE protocol Urgent 06/30/24 14:11 US duplex mesenteric Routine 07/01/24 17:06 CTA abdomen pelvis w con [CT angio abdomen pelvis w con] Urgent Pending Results Patient Have Any Pending Studies at Discharge: No Discharge Instructions Given to Patient (Per Discharging Provider) Mrs Witt, your pain is likely contributed to by your peripheral artery disease, we are trying to control your pain with methadone, please follow up with your primary care provider to continue to assess your pain and adjust your medicine. You may consider following up with an outpt vascular surgery provider to discuss if your peripheral artery disease is contributing to your pain Total Time Total Time Spent Total Time Spent (In Minutes): It required greater than 30 minutes to prepare this patient for discharge. Coding Level of Care Code 20261 INP/OBS DISCH >30 MIN Diagnoses Abdominal pain R10.9 Type 2 diabetes mellitus E11.69; Z79.4 Diabetes mellitus complication status: with other specified complication Diabetes mellitus extermination inspector insulin use: with assisted use Generalized anxiety disorder F41.1 HTN (hypertension) I10 B12 deficiency E53.8 Neural foraminal stenosis of lumbar spine M48.061
== END 2024-07-09 18:06 | disposition home or self-care (01) | DRG 871 ==
LOC: ED 19:58 → 3N 06-20 00:41 → SUATTDRO 06-20 00:41 → 3N 06-20 02:39

== ENCOUNTER 2024-10-01 11:33 | Inpatient (IN) ==
[2024-10-01 12:34] LABS: Basophils # (auto) 0.03 K/uL (0.00-0.20); Basophils % (auto) 0.3 %; Eosinophils # (auto) 0.19 K/uL (0.00-0.50); Eosinophils % (auto) 2.2 %; Hematocrit (blood only) 44.7 % (37.0-47.0); Hemoglobin 14.2 g/dl (12.0-16.0); Immature Granulocytes # (auto) 0.02 K/uL (0.01-0.20); Immature Granulocytes % (auto) 0.2 %; Mean Corpuscular Hemoglobin 23.8 pg (25.0-34.0); Mean Corpuscular Hgb Conc 31.8 g/dL (32.0-36.0); Mean Corpuscular Volume 74.9 fL (80.0-100.0); Mean Platelet Volume 10.2 fL (9.4-12.4); Monocytes # (auto) 0.68 K/uL (0.11-0.59); Monocytes % (auto) 7.8 %; Neutrophils # (auto) 5.15 K/uL (1.40-6.50); Neutrophils % (auto) 59.5 %; Platelet Count 258 K/uL (130-400); RDW Coefficient of Variation 17.2 % (11.5-14.5); RDW Standard Deviation 44.5 fL (36.4-46.3); Red Blood Count 5.97 M/uL (4.20-5.40); White Blood Count 8.67 K/ul (4.8-10.8)
[2024-10-01 13:02] LABS: Alanine Aminotransferase 9 U/L (7-52); Albumin Globulin Ratio 1.3 (0.9-2); Albumin Level 4.8 gm/dl (3.4-5.0); Alkaline Phosphatase 74 U/L (34-104); Anion Gap 5 (3-11); Aspartate Aminotransferase 13 U/L (13-39); BUN Creatinine Ratio 35.8 (10-20); Bilirubin,Total 0.4 mg/dl (0.2-1.0); Blood Urea Nitrogen 19 mg/dl (6-23); Calcium 9.7 mg/dl (8.6-10.3); Carbon Dioxide 29 mmol/L (21-32); Chloride 101 mmol/L (98-107); Globulin 3.6 gm/dl (2.5-4.0); Glucose 109 mg/dl (70-99(Fasting)); Potassium 4.8 mmol/L (3.5-5.1); Sodium 135 mmol/L (136-145); Total Protein 8.4 gm/dl (6.0-8.3)
[2024-10-01 13:04] LABS: INR 0.9 (0.9-1.1); Partial Thromboplastin Ratio 0.9; Partial Thromboplastin Time 23 Seconds (21-31); Prothrombin Time 9.6 Seconds (9.0-12.0)
[2024-10-01 13:23] LABS: Adenovirus PCR Not Detected (NotDetected); Bordetella parapertussis PCR Not Detected (NotDetected); Bordetella pertussis PCR Not Detected (NotDetected); Chlamydia pneumoniae PCR Not Detected (NotDetected); Coronavirus 229E PCR Not Detected (NotDetected); Coronavirus CoV-2 (COVID19)PCR DETECTED (NotDetected); Coronavirus HKU1 PCR Not Detected (NotDetected); Coronavirus NL63 PCR Not Detected (NotDetected); Coronavirus OC43PCR Not Detected (NotDetected); Human Metapneumovirus PCR Not Detected (NotDetected); Influenza A PCR Not Detected (NotDetected); Influenza B PCR Not Detected (NotDetected); Mycoplasma pneumoniae PCR Not Detected (NotDetected); Parainfluenza Virus 1 PCR Not Detected (NotDetected); Parainfluenza Virus 2 PCR Not Detected (NotDetected); Parainfluenza Virus 3 PCR Not Detected (NotDetected); Parainfluenza Virus 4 PCR Not Detected (NotDetected); Respiratory Syncytial VirusPCR Not Detected (NotDetected); Rhinovirus/Enterovirus PCR Not Detected (NotDetected)
--- NOTE | 2024-10-01 14:27 | Emergency Department Note ---
Impression & Plan Chronic pain Admission ED Provider Note HPI: History obtained from patient. The patient is a 59-year-old female with history of peripheral artery disease, status post right sided below the knee amputation, multiple left lower extremity digit amputations, presents the emergency department today with chief complaint of pain in her leg as well as nausea. Patient is anxious and tearful on my initial assessment, she was seen by her PCP earlier today and was advised to come to the emergency department "to be admitted to palliative care". On arrival here to the ED, the patient is hypertensive and tearful, she is otherwise hemodynamically stable, she appears to be in no acute physical distress on my initial assessment. Patient stated in triage that she has had some chills and nausea over the past several days. Patient's left lower extremity is without any discoloration, there is good capillary refill in the remaining digits of the left lower extremity on arrival. ROS: - Per HPI Differential Diagnosis: Acute on chronic pain syndrome, claudication, ischemic limb, sepsis, viral upper respiratory infection, amongst other potential pathologies. *Outpatient medications and allergy history reviewed. PE: General: Alert HEENT: Normocephalic, trachea midline Eyes: Extraocular eye movement is intact, no scleral erythema Pulmonary: Clear to auscultation bilaterally, no wheezing Cardio: Regular rate and rhythm GI: Abdomen is soft to palpation : No suprapubic tenderness MSK:status post right lower extremity BKA, there is a faint palpable dorsalis pedis pulse in the left lower extremity, there is no discoloration of the left lower extremity, capillary refill is 2 seconds in the remaining digits of the left lower extremity on my initial assessment Skin: No evidence of rash Neuro: Alert, no focal deficits Psychiatric: Cooperative 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 Patient was given a dose of IV Dilaudid initially, she stated this was the only medication that worked for her. Lab work shows no leukocytosis, hemoglobin is normal, platelet count is normal, CMP does not show any evidence of any critical findings. Viral panel testing was obtained and the patient is positive for COVID-19. CT angiography of the left lower extremity was obtained, there is no evidence of acute occlusion, patient does have fairly severe peripheral arterial disease with reconstitution distally in the foot. She does not appear to have an acute ischemic limb on my exam. She complains of pain mostly up in the groin and upper leg. She states this is chronic in nature. Patient was referred here by her primary doctor for admission with palliative consultation. I did receive a phone call from the palliative care midlevel provider, Tracie Zheng, she stated that she was very familiar with the patient and have been contacted by the patient's family in regards to her potential admission. She requested routine consultation be placed, also that the patient adhere to her outpatient pain regimen which included methadone and oxycodone and to avoid IV Dilaudid as best that we are able. I think this is a reasonable plan of care for the patient. I discussed all the above findings and conversations with the patient and with her son at the bedside. Patient had some methadone ordered for her as was the recommendation of palliative care given that this was prescribed for her as an outpatient after her last admission. Patient was very agitated that this medication was ordered and she was agitated at not receiving any further IV Dilaudid after her initial dose. I stated with her that we would plan to admit her to the hospitalist service with palliative care consultation in regards to her chronic pain and how this can be managed more effectively in the future. Patient was in agreement for admission, hospitalist service was consulted for admission and the patient's care was discussed with the on-call hospitalist, Dr. Best. Consultants/Discussions held with other healthcare providers: -Hospitalist, Dr. Best -Palliative care, Kimmy Zheng Disposition discussion held by myself with: -Patient and patient's son at the bedside Diagnosis: 1. Acute on chronic pain, left lower extremity 2. COVID-19 infection, acute 3. Peripheral arterial disease, chronic Disposition: Admission Dami Madden DO Emergency Medicine Past Med/Surg History Problem List (Updated 10/01/24 @ 18:33 by Dami Madden DO) Chronic pain (Acute) Chronic pain Pain and swelling of right knee (Acute) Lower extremity pain (Acute) Severe pain Palliative care by specialist Generalized anxiety disorder Constipation due to pain medication Counseling regarding advanced directives and goals of care Pneumonia (Acute) Abdominal pain (Chronic) Swelling of left foot Groin pain, chronic, left Ilioinguinal neuralgia of left side Neural foraminal stenosis of lumbar spine Left L4-5 Opioid dependence (Chronic) Left flank pain Lumbar disc herniation with radiculopathy Back pain (Acute) 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/antiplatelets (Acute) Acute dehydration (Acute) Elevated troponin (Acute) Diffuse abdominal pain (Acute) Acute herpes zoster neuropathy (Acute) Infection due to Rivas catheter MRSA bacteremia Ulcer of second toe of left foot (Acute) Elevated lactic acid level (Acute) Abscess of right axilla Axillary hidradenitis suppurativa (Acute) Vomiting (Acute) Headache (Acute) Constipation (Acute) Diarrhea (Acute) Internal jugular (IJ) vein thromboembolism, acute Anemia Vitamin D deficiency Shoulder pain B12 deficiency Acute leg pain (Acute) Costochondritis Globus pharyngeus Somatic dysfunction of thoracic region Chronic pain syndrome Acute adjustment disorder with mixed anxiety and depressed mood Diarrhea Scapular dyskinesis Injury of left rotator cuff Numbness of upper extremity Status post spinal surgery Gastroparesis (Acute) Vitamin D deficiency Esophagitis History of tobacco use Toe ulcer, right MRSA (methicillin resistant staph aureus) culture positive Rash and nonspecific skin eruption Stye Acute hyperglycemia (Acute) Tenosynovitis of ankle Surgical wound, non healing (Acute) Ankle ulcer due to DM Encounter for pre-operative examination Anxiety Diarrhea Emphysema lung Cellulitis of left foot (Acute) Diabetic foot ulcer (Acute) Acute leg pain (Acute) Iron deficiency anemia History of amputation of great toe Diabetic peripheral neuropathy Depression Nonobstructive atherosclerosis of coronary artery Chronic back pain Medical History Dysphagia Lumbar radiculopathy, right Type 2 diabetes mellitus Uncontrolled hypertension GERD (gastroesophageal reflux disease) Amputation of left great toe Poor venous access Hyponatremia Intractable neuropathic pain of left lower extremity Gastroparesis Leukocytosis Chronic pain Insomnia HTN (hypertension) PAD (peripheral artery disease) Hypertension Groin pain Foot pain Infection of left great toe due to methicillin resistant Staphylococcus aureus (MRSA) Diastolic CHF COVID-19 Osteomyelitis of great toe of left foot Opiate dependence Opiate abuse, continuous Acidosis, lactic Acute dehydration Gastroenteritis Sepsis Shortness of breath Opioid dependence Insomnia 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 No issues per anesthesia postop progress note. Anemia Hyponatremia Cellulitis Peripheral neuropathy Benzodiazepine withdrawal Right second toe ulcer Diabetes mellitus type 2, uncontrolled Hyperlipidemia Seizures Gastritis Numbness of lower extremity Hypertriglyceridemia CAD (coronary artery disease) History of tobacco use Benzodiazepine dependence Diabetic neuropathy Abdominal pain Gastroparesis Esophagitis determined by endoscopy GIB (gastrointestinal bleeding) Insulin dependent diabetes mellitus DM2 (diabetes mellitus, type 2) IDDM, A1c 07/2021-11% Surgical History History of lumbar fusion L5-S1 from 2004, [place] History of lumbar surgery History of esophagogastroduodenoscopy (EGD) Family History Mother , age 63 Myocardial infarction Father , age 68 or 69 Myocardial infarction Brother S/P CABG (coronary artery bypass graft) Sister Myocardial infarction x 3; she is 57yo Social History Smoking Status: Former smoker Tobacco Type: Cigarettes packs per day: 0.5; Second Hand Exposure: No; Do You Dip or Chew Tobacco: No; Hx Alcohol Use: No Hx Substance Use: Yes Prescribed Medications: Marijuana Last Used Substance: Unknown Last Used Substance Other:: Medical marijuana Substance Use Type Other:: Medical marijuana Preferred Language: Turkish Communication Ability: Effective Visual Impairment: No Limitations Hearing Ability: Normal Shop Steward Required: No Beliefs That Will Affect Care: None marital status: Current Living Situation: Spouse Current Living Situation Comment: lives at home with current occupational status: unemployed 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 other: raising a grandchild as well; lives in [place] Feels Safe at Home: Yes Diet: diabetic and low salt during the past year weight has: remained stable Assistive Devices: Walker and Wheelchair Allergies Allergies Allergy/AdvReac Type Severity Reaction Status Date / Time morphine Allergy Severe blisters Verified 02/10/24 22:40 in mouth Sulfa (Sulfonamide Allergy Severe rash/swelli Verified 02/10/24 22:40 Antibiotics) ng amoxicillin [From Augmentin] Allergy Intermediate itching/power Verified 02/10/24 22:40 h ceftriaxone [From Rocephin] Allergy Intermediate Hives Verified 02/10/24 22:40 clavulanic acid Allergy Intermediate itching/power Verified 02/10/24 22:40 [From Augmentin] h erythromycin base Allergy Intermediate Hives Verified 02/10/24 22:40 vancomycin Allergy Intermediate YULIYA Verified 02/10/24 22:40 SYNDROME---CAN TAKE IF VERY SLOW DRIP. adhesive AdvReac Intermediate DERMABOND Verified 02/10/24 22:40 excoriates skin gabapentin AdvReac Intermediate Nausea Verified 02/10/24 22:40 iron [From Venofer] AdvReac Intermediate Hypertensio Verified 02/10/24 22:40 n Home Meds Home Medications Medication Instructions Recorded Confirmed insulin glargine 100 unit/mL (3 10 unit subcut HS 10/17/22 09/28/24 mL) subcutaneous pen (Lantus Solostar U-100 Insulin) alprazolam 1 mg tablet 1 mg PO TID PRN Anxiety 05/08/23 10/01/24 docusate sodium 100 mg capsule 100 mg PO BID 05/08/23 09/28/24 metoprolol succinate 50 mg 50 mg PO QAM 05/08/23 09/28/24 tablet,extended release 24 hr (Toprol XL) prochlorperazine maleate 5 mg 5 mg PO TID PRN Nausea 06/13/23 09/28/24 tablet aspirin 81 mg tablet,delayed 81 mg PO DAILY 09/19/23 09/28/24 release hydralazine 25 mg tablet 25 mg PO TID 09/19/23 09/28/24 duloxetine 60 mg capsule,delayed 60 mg PO DAILY 06/02/24 09/28/24 release insulin aspart 5 unit subcut TIDM 06/02/24 09/28/24 (niacinamide)(U-100) 100 unit/mL(3 mL) subcutaneous pen (Fiasp FlexTouch U-100 Insulin) lisinopril 20 mg tablet 20 mg PO DAILY 06/02/24 09/28/24 ropinirole 4 mg tablet 8 mg PO HS 06/02/24 09/28/24 Previous Rx's Medication Instructions Recorded clopidogrel 75 mg tablet (Plavix) 75 mg PO DAILY #30 tabs 05/10/23 lidocaine 5 % topical patch 1 patch transdermal QAM #14 ea 12/13/23 clonidine HCl 0.1 mg tablet 0.1 mg PO Q8H #90 tabs 04/03/24 cyanocobalamin (vitamin B-12) 500 1,000 mcg (2 x 500 mcg) PO QAM #30 04/03/24 mcg tablet tabs naloxone 4 mg/actuation nasal spray 4 mg intranasal ONCE PRN opioid 04/03/24 overdose #2 ea polyethylene glycol 3350 17 gram 17 g PO BID #0 ea 04/03/24 oral powder packet (Miralax) pregabalin 100 mg capsule (Lyrica) 100 mg PO TID #90 caps 04/03/24 sennosides 8.6 mg tablet (Senokot) 17.2 mg (2 x 8.6 mg) PO BID PRN 04/03/24 constipation #60 tabs sucralfate 100 mg/mL oral 1 g (10 mL) PO ACHS #200 mL 06/05/24 suspension (Carafate) doxycycline hyclate 100 mg capsule 100 mg PO BID #14 caps 06/23/24 aripiprazole 5 mg tablet (Abilify) 2.5 mg (1/2 x 5 mg) PO QAM #30 tabs 07/09/24 hydroxyzine HCl 25 mg tablet 50 mg (2 x 25 mg) PO HS #30 tabs 07/09/24 clindamycin HCl 150 mg capsule 150 mg PO Q6H 7 days #28 caps 09/28/24 Results & Data (ED) Vital Signs Vital Signs - 24 hr 10/01/24 11:45 10/01/24 14:23 10/01/24 15:30 Temperature 37 C Temperature Source Oral Pulse Rate 98 H 93 H Pulse Rate [Apical] 79 Respiratory Rate 18 21 Respiratory Effort / Characteristics Non-Labored Spontaneous Respiratory Depth Normal Normal Respiratory Pattern Regular Blood Pressure 161/103 H Blood Pressure [Right Arm] 123/81 Blood Pressure Mean 122 Blood Pressure Mean [Right Arm] 95 Blood Pressure Position [Right Arm] Lying Pulse Oximetry 98 98 Oxygen Delivery Method Room Air Room Air Sepsis Recent Fever Within 48 Hours No Sepsis New/Unexplained Change in Mental Status N/A Sepsis Action Taken by Nursing No Action Required 10/01/24 18:14 10/01/24 18:24 Temperature Temperature Source Pulse Rate 96 H Pulse Rate [Apical] 96 H Respiratory Rate 15 Respiratory Effort / Characteristics Respiratory Depth Respiratory Pattern Blood Pressure Blood Pressure [Right Arm] 209/98 H Blood Pressure Mean Blood Pressure Mean [Right Arm] 135 Blood Pressure Position [Right Arm] Sitting Pulse Oximetry 94 Oxygen Delivery Method Room Air Sepsis Recent Fever Within 48 Hours Sepsis New/Unexplained Change in Mental Status Sepsis Action Taken by Nursing Laboratory Data 10/01/24 12:07 10/01/24 12:07 Lab Results 10/01/24 10/01/24 Range/Units 11:44 12:07 WBC 8.67 (4.8-10.8) K/ul RBC 5.97 H (4.20-5.40) M/uL Hgb 14.2 (12.0-16.0) g/dl Hct 44.7 (37.0-47.0) % MCV 74.9 L (80.0-100.0) fL MCH 23.8 L (25.0-34.0) pg MCHC 31.8 L (32.0-36.0) g/dL RDW Std Deviation 44.5 (36.4-46.3) fL RDW Coeff of Maria [place] Carmen 17.2 H (11.5-14.5) % Plt Count 258 (130-400) K/uL MPV 10.2 (9.4-12.4) fL Immature Gran % (Auto) 0.2 % Neut % (Auto) 59.5 % Lymph % (Auto) 30.0 % [place] % (Auto) 7.8 % Eos % (Auto) 2.2 % Baso % (Auto) 0.3 % Neut # (Auto) 5.15 (1.40-6.50) K/uL Lymph # (Auto) 2.60 (1.20-3.40) K/uL [place] # (Auto) 0.68 H (0.11-0.59) K/uL Eos # (Auto) 0.19 (0.00-0.50) K/uL Baso # (Auto) 0.03 (0.00-0.20) K/uL Immature Gran # (Auto) 0.02 (0.01-0.20) K/uL PT 9.6 (9.0-12.0) Seconds INR 0.9 (0.9-1.1) APTT 23 (21-31) Seconds PTT Ratio 0.9 Sodium 135 L (136-145) mmol/L Potassium 4.8 (3.5-5.1) mmol/L Chloride 101 (98-107) mmol/L Carbon Dioxide 29 (21-32) mmol/L Anion Gap 5 (3-11) BUN 19 (6-23) mg/dl Creatinine 0.53 L (0.6-1.2) mg/dl Est Cr Clr Drug Dosing Not Reportable eGFR 105.81 BUN/Creatinine Ratio 35.8 H (10-20) Glucose 109 H (70-99(Fasting)) mg/dl Calcium 9.7 (8.6-10.3) mg/dl Total Bilirubin 0.4 (0.2-1.0) mg/dl AST 13 (13-39) U/L ALT 9 (7-52) U/L Alkaline Phosphatase 74 (34-104) U/L Total Protein 8.4 H (6.0-8.3) gm/dl Albumin 4.8 (3.4-5.0) gm/dl Globulin 3.6 (2.5-4.0) gm/dl Albumin/Globulin Ratio 1.3 (0.9-2) Adenovirus (PCR) Not Detected (NotDetected) B. pertussis DNA (PCR) Not Detected (NotDetected) B.parapertussis DNA PCR Not Detected (NotDetected) C. pneumoniae DNA (PCR) Not Detected (NotDetected) Coronavirus OC43 (PCR) Not Detected (NotDetected) Coronavirus HKU1 (PCR) Not Detected (NotDetected) Coronavirus 229E (PCR) Not Detected (NotDetected) SARS-CoV-2 (PCR) DETECTED A (NotDetected) Coronavirus NL63 (PCR) Not Detected (NotDetected) Human Metapneumovir PCR Not Detected (NotDetected) Influenza Type A (PCR) Not Detected (NotDetected) Influenza Type B (PCR) Not Detected (NotDetected) M. pneumoniae (PCR) Not Detected (NotDetected) Parainfluenza 1 (PCR) Not Detected (NotDetected) Parainfluenza 2 (PCR) Not Detected (NotDetected) Parainfluenza 3 (PCR) Not Detected (NotDetected) Parainfluenza 4 (PCR) Not Detected (NotDetected) RSV (PCR) Not Detected (NotDetected) Entero/Rhino (PCR) Not Detected (NotDetected) Administered Medications Discontinued Medications Hydromorphone HCl (Hydromorphone Inj 0.5 Mg/0.5 Ml Syr) 0.5 mg IV NOW STA Stop: 10/01/24 14:24 Last Admin: 10/01/24 14:31 Dose: 0.5 mg Documented By: ODELL Ioversol (Optiray 320 125ml) 120 ml IV ONCE ONE Stop: 10/01/24 14:52 Last Admin: 10/01/24 14:51 Dose: 120 ml Documented By: PARVIN Methadone HCl (Methadone Hcl 5 Mg Tab) 5 mg PO NOW STA Stop: 10/01/24 16:02 Last Admin: 10/01/24 17:30 Dose: Not Given Documented By: MARIYA Ondansetron HCl (Ondansetron Inj 2 Mg/Ml 2 Ml Vial) 4 mg IV NOW STA Stop: 10/01/24 14:23 Last Admin: 10/01/24 14:32 Dose: 4 mg Documented By: ODELL Oxycodone HCl (Oxycodone Hcl Ir 5 Mg Tab (Immediate Release)) 20 mg PO NOW STA Stop: 10/01/24 17:49 Last Admin: 10/01/24 18:15 Dose: 20 mg Documented By: MARIYA Imaging Data Radiologist's Impression: Lower Extremity CTA 10/01/24 14:21 CT ANGIOGRAPHY OF THE LEFT LOWER EXTREMITY CLINICAL HISTORY: Groin pain down to foot, hx of PAD. COMPARISON STUDY: Left lower extremity arterial Doppler ultrasound December 30, 2023. CTA with runoff July 14, 2021. CTA of the abdomen and pelvis July 01, 2024. TECHNIQUE: Helical axial images of the mid to lower abdomen, pelvis and left lower extremity were obtained during arterial phase following intravenous injection 120 cc of Optiray 320 IV. Sagittal and coronal reconstructions were viewed as well as maximal intensity projections on an independent 3-D workstation. Automated exposure control was utilized for the study. A dose lowering technique was utilized adhering to the principles of ALARA. FINDINGS: Visualized portions of the liver are unremarkable on arterial phase exam. There is no biliary ductal dilatation status post cholecystectomy. Spleen, adrenal glands and pancreas are unremarkable. There is no evidence for a bowel obstruction. The caliber and wall thickness of small and large bowel are normal. There are postoperative findings within the spine. There is no abdominal lymphadenopathy. No fluid collections are present. Postoperative findings consistent with right below-knee amputation. There is extensive plaque with multifocal stenoses within the right lower extremity vasculature. There is extensive atherosclerotic plaque within the abdominal aorta. No abdominal aortic aneurysm is present. Branch vessels are patent. There is extensive plaque within the left lower extremity vasculature. The left common iliac artery is patent. There is mild stenosis of the left external iliac artery. There is moderate stenosis of the left common femoral artery. There are moderate multifocal stenoses within the left superficial femoral artery. The left popliteal artery is patent. There is occlusion of the proximal left anterior tibial artery with distal reconstitution. The left dorsalis pedis is patent. The left peroneal artery is patent to the level of the syndesmosis. Multifocal stenoses of the left posterior tibial artery are present with occlusion and distal reconstitution. There is trace flow within the distal left posterior tibial artery. IMPRESSION: 1. Extensive atherosclerotic plaque within the left lower extremity. 2. Moderate multifocal stenoses within the left superficial femoral artery. 3. Occlusion of the proximal left anterior tibial artery which is new since CT of July 14, 2021. Distal reconstitution with patent left dorsalis pedis. 4. Occlusion of the distal left posterior tibial artery with distal reconstitution. Overall, significantly diminished flow within the left calf vessels. 5. Extensive plaque within the abdominal aorta. No aneurysm or stenosis within the abdominal aorta. Patent left common iliac artery. 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 6. Status post right below knee amputation. ACT 112: Negative or not required by law. Electronically signed by: Wilver Powell M.D. 10/01/2024 4:38 PM Discharge Plan Visit Data Chief Complaint: Referred by Doctor Stated Complaint: ABN TEST RESULTS ED Provider: Dami Madden Discharge Problem: Chronic pain Forms Stand Alone Forms: My [employer] Prescriptions Prescriptions: No Action prochlorperazine maleate 5 mg tablet 5 mg PO TID PRN (Reason: Nausea) insulin glargine [Lantus Solostar U-100 Insulin] 100 unit/mL (3 mL) insulin pen 10 unit SUBCUT HS metoprolol succinate [Toprol XL] 50 mg tablet extended release 24 hr 50 mg PO QAM docusate sodium 100 mg Capsule 100 mg PO BID alprazolam 1 mg tablet 1 mg PO TID PRN (Reason: Anxiety) clopidogrel [Plavix] 75 mg tablet 75 mg PO DAILY Qty: 30 0RF hydralazine 25 mg tablet 25 mg PO TID aspirin 81 mg Tablet,Delayed Release (Dr/Ec) 81 mg PO DAILY lidocaine 5 % Adhesive Patch,Medicated 1 patch transdermal QAM Qty: 14 0RF clonidine HCl 0.1 mg Tablet 0.1 mg PO Q8H Qty: 90 0RF pregabalin [Lyrica] 100 mg Capsule 100 mg PO TID Qty: 90 0RF polyethylene glycol 3350 [Miralax] 17 gram Powder In Packet 17 g PO BID Qty: 0 0RF Rx Instructions: 1 capful twice a day for constipation, buy over the counter sennosides [Senokot] 8.6 mg Tablet 17.2 mg PO BID PRN (Reason: constipation) Qty: 60 0RF cyanocobalamin (vitamin B-12) 500 mcg Tablet 1,000 mcg PO QAM Qty: 30 0RF naloxone 4 mg/actuation spray,non-aerosol 4 mg intranasal ONCE PRN (Reason: opioid overdose) Qty: 2 0RF Rx Instructions: call 911 if used, may repeat dose if ineffective ropinirole 4 mg tablet 8 mg PO HS Fiasp FlexTouch U-100 Insulin 100 unit/mL (3 mL) insulin pen 5 unit SUBCUT TIDM duloxetine 60 mg capsule,delayed release(DR/EC) 60 mg PO DAILY lisinopril 20 mg Tablet 20 mg PO DAILY sucralfate [Carafate] 100 mg/mL suspension 1 g PO ACHS Qty: 200 0RF doxycycline hyclate 100 mg Capsule 100 mg PO BID Qty: 14 0RF hydroxyzine HCl 25 mg Tablet 50 mg PO HS Qty: 30 0RF aripiprazole [Abilify] 5 mg Tablet 2.5 mg PO QAM Qty: 30 0RF clindamycin HCl 150 mg capsule 150 mg PO Q6H 7 Days Qty: 28 0RF Referrals Referrals: Vince Vernon DO [Primary Care Provider] -
[2024-10-01] MEDS: HYDROmorphone INJ 0.5 MG/0.5 ML SYR IV STA (14:31)
[2024-10-01] MEDS: ONDANSETRON INJ 2 MG/ML 2 ML VIAL IV STA (14:32)
[2024-10-01] MEDS: OPTIRAY 320 125ml IV ONE (14:51)
--- NOTE | 2024-10-01 16:41 | CT Scan Report ---
CT ANGIOGRAPHY OF THE LEFT LOWER EXTREMITY CLINICAL HISTORY: Groin pain down to foot, hx of PAD. COMPARISON STUDY: Left lower extremity arterial Doppler ultrasound December 30, 2023. CTA with runoff Dec emb2020. CTA of the abdomen and pelvis July 01, 2024. TECHNIQUE: Helical axial images of the mid to lower abdomen, pelvis and left lower extremity were obt ained during arterial phase following intravenous injection 120 cc of Optiray 320 IV. Sagittal and co abdullahi reconstructions were viewed as well as maximal intensity projections on an independent 3-D work station. Automated exposure control was utilized for the study. A dose lowering technique was utiliz ed adhering to the principles of ALARA. FINDINGS: Visualized portions of the liver are unremarkable on arterial phase exam. There is no bilia ry ductal dilatation status post cholecystectomy. Spleen, adrenal glands and pancreas are unremarkabl e. There is no evidence for a bowel obstruction. The caliber and wall thickness of small and large attila wel are normal. There are postoperative findings within the spine. There is no abdominal lymphadenopa thy. No fluid collections are present. Postoperative findings consistent with right below-knee amputa tion. There is extensive plaque with multifocal stenoses within the right lower extremity vasculature . There is extensive atherosclerotic plaque within the abdominal aorta. No abdominal aortic aneurysm is present. Branch vessels are patent. There is extensive plaque within the left lower extremity vascul ature. The left common iliac artery is patent. There is mild stenosis of the left external iliac zion ry. There is moderate stenosis of the left common femoral artery. There are moderate multifocal steno ses within the left superficial femoral artery. The left popliteal artery is patent. There is occlusi on of the proximal left anterior tibial artery with distal reconstitution. The left dorsalis pedis is patent. The left peroneal artery is patent to the level of the syndesmosis. Multifocal stenoses of t he left posterior tibial artery are present with occlusion and distal reconstitution. There is trace flow within the distal left posterior tibial artery. IMPRESSION: 1. Extensive atherosclerotic plaque within the left lower extremity. 2. Moderate multifocal stenoses within the left superficial femoral artery. 3. Occlusion of the proximal left anterior tibial artery which is new since CT of July 14, 2021. D istal reconstitution with patent left dorsalis pedis. 4. Occlusion of the distal left posterior tibial artery with distal reconstitution. Overall, signific antly diminished flow within the left calf vessels. 5. Extensive plaque within the abdominal aorta. No aneurysm or stenosis within the abdominal aorta. P atent left common iliac artery. 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 6. Status post right below knee amputation. ACT 112: Negative or not required by law. Electronically signed by: Wilver Powell M.D. 10/01/2024 4:38 PM
[2024-10-01] MEDS: METHADONE HCL 5 MG TAB PO STA (17:30)
[2024-10-01] MEDS: oxyCODONE HCL IR 5 MG TAB (IMMEDIATE RELEASE) PO STA (18:15)
--- NOTE | 2024-10-01 18:19 | History & Physical Report ---
Date of Service October 01, 2024 Assessment & Plan (1) Chronic pain: Plan: Her pain is similar to what has been described in the past (most notably during February admission 2023) in her left groin and radiating down her left leg. This has been evaluated by vascular, ortho spine, orthopedics, OBGYN, surgery and pain management previously. She has a significant history of pain out of proportion to her clinical findings which a significant amount of the time no pathology is found. She usually requests Dilaudid as an inpatient with ever escalating doses and frequency which has essentially led us to this point where she is chronically reliant on opiates to maintain the status quo and she has nothing to help when the pain is worse than usual. Possible her current pain is exacerbated by COVID as this can cause generalized aches but I do not think this warrants starting IV Dilaudid. The pain is not consistent with ischemia, she has been seen by vascular medicine Dr Lin in December 2023 for similar pain and not suspected to be due to ischemia and she has good dorsalis pedis pulse on palpation. Her left foot is cool but with good capillary refill. I do not feel there is any acute pathology at this time and the goal is to get her chronic pain under control with palliative care - ER provider discussed with palliative care and recommended against IV Dilaudid (presumably unless any acute pathology was found) therefore will avoid this overnight. Can give acetaminophen and Toradol in addition to her usual oxycodone pain. I see no outpatient appointments with pain management following the ilioinguinal nerve block, and per hospitalist notes she did have some relief with the ilioinguinal block therefore will additionally consult pain management to consider repeat of this procedure. Continue Lyrica and duloxetine for neuropathic pain. (2) SARS-CoV-2 positive: Plan: Test performed in the ER. Patient denies any symptoms therefore not treatment will be given. Isolation precautions. Plan Peripheral artery disease - continue aspirin, clopidogrel HTN - continue clonidine, hydralazine, lisinopril VTE Prophylaxis - Lovenox 40mg SQ daily Diet - regular Disposition - admit to med/surg Admission and Anticipated Discharge Date Admission Date: October 01, 2024 History of Present Illness Chief Complaint: Left leg pain Primary Care Provider: Vince Vidal DO Janeen Mariana Witt is a 59 year old female who presents to the ER with intractable left leg pain. Difficult to get a good history from the patient as she is currently in 10 out of 10 pain and does not want to go through medication reconciliation or significant history of the pain. She denies any new acute symptoms. She reports the pain is in her back, groin and radiates down the inside part of her left leg. On review of previous notes it appears she has had left groin pain present for several months. She is currently on oxycodone 20 mg p.o. x 6/day to manage a chronic pain. In February last year she received a left iliofemoral nerve block and had 4 hours of partial pain relief. She reports not getting outpatient injections as they did not work. She feels the oxycodone does not work for pain however she continues to pick this up as an outpatient. Reportedly her PCP contacted palliative care to be admitted to [facility] to help get her pain under control. Allergies Allergy/AdvReac Type Severity Reaction Status Date / Time morphine Allergy Severe blisters Verified 02/10/24 22:40 in mouth Sulfa (Sulfonamide Allergy Severe rash/swelli Verified 02/10/24 22:40 Antibiotics) ng amoxicillin [From Augmentin] Allergy Intermediate itching/power Verified 02/10/24 22:40 h ceftriaxone [From Rocephin] Allergy Intermediate Hives Verified 02/10/24 22:40 clavulanic acid Allergy Intermediate itching/power Verified 02/10/24 22:40 [From Augmentin] h erythromycin base Allergy Intermediate Hives Verified 02/10/24 22:40 vancomycin Allergy Intermediate YULIYA Verified 02/10/24 22:40 SYNDROME---CAN TAKE IF VERY SLOW DRIP. adhesive AdvReac Intermediate DERMABOND Verified 02/10/24 22:40 excoriates skin gabapentin AdvReac Intermediate Nausea Verified 02/10/24 22:40 iron [From Venofer] AdvReac Intermediate Hypertensio Verified 02/10/24 22:40 n Home Medications Medication Instructions Recorded Confirmed Type insulin glargine 100 unit/mL (3 10 unit subcut HS 10/17/22 09/28/24 History mL) subcutaneous pen (Lantus Solostar U-100 Insulin) alprazolam 1 mg tablet 1 mg PO TID PRN Anxiety 05/08/23 10/01/24 History docusate sodium 100 mg capsule 100 mg PO BID 05/08/23 09/28/24 History metoprolol succinate 50 mg 50 mg PO QAM 05/08/23 09/28/24 History tablet,extended release 24 hr (Toprol XL) clopidogrel 75 mg tablet (Plavix) 75 mg PO DAILY #30 tabs 05/10/23 09/28/24 Rx prochlorperazine maleate 5 mg 5 mg PO TID PRN Nausea 06/13/23 09/28/24 History tablet aspirin 81 mg tablet,delayed 81 mg PO DAILY 09/19/23 09/28/24 History release hydralazine 25 mg tablet 25 mg PO TID 09/19/23 09/28/24 History lidocaine 5 % topical patch 1 patch transdermal QAM #14 ea 12/13/23 09/28/24 Rx clonidine HCl 0.1 mg tablet 0.1 mg PO Q8H #90 tabs 04/03/24 09/28/24 Rx cyanocobalamin (vitamin B-12) 500 1,000 mcg (2 x 500 mcg) PO QAM #30 04/03/24 09/28/24 Rx mcg tablet tabs naloxone 4 mg/actuation nasal spray 4 mg intranasal ONCE PRN opioid 04/03/24 09/28/24 Rx overdose #2 ea polyethylene glycol 3350 17 gram 17 g PO BID #0 ea 04/03/24 09/28/24 Rx oral powder packet (Miralax) pregabalin 100 mg capsule (Lyrica) 100 mg PO TID #90 caps 04/03/24 09/28/24 Rx sennosides 8.6 mg tablet (Senokot) 17.2 mg (2 x 8.6 mg) PO BID PRN 04/03/24 09/28/24 Rx constipation #60 tabs duloxetine 60 mg capsule,delayed 60 mg PO DAILY 06/02/24 09/28/24 History release insulin aspart 5 unit subcut TIDM 06/02/24 09/28/24 History (niacinamide)(U-100) 100 unit/mL(3 mL) subcutaneous pen (Fiasp FlexTouch U-100 Insulin) lisinopril 20 mg tablet 20 mg PO DAILY 06/02/24 09/28/24 History ropinirole 4 mg tablet 8 mg PO HS 06/02/24 09/28/24 History sucralfate 100 mg/mL oral 1 g (10 mL) PO ACHS #200 mL 06/05/24 09/28/24 Rx suspension (Carafate) doxycycline hyclate 100 mg capsule 100 mg PO BID #14 caps 06/23/24 09/28/24 Rx aripiprazole 5 mg tablet (Abilify) 2.5 mg (1/2 x 5 mg) PO QAM #30 tabs 07/09/24 09/28/24 Rx hydroxyzine HCl 25 mg tablet 50 mg (2 x 25 mg) PO HS #30 tabs 07/09/24 09/28/24 Rx clindamycin HCl 150 mg capsule 150 mg PO Q6H 7 days #28 caps 09/28/24 Rx Past Med/Surg History Problem List (Updated 10/02/24 @ 02:07 by Silvestre Best MD) SARS-CoV-2 positive Chronic pain (Acute) Chronic pain Pain and swelling of right knee (Acute) Lower extremity pain (Acute) Severe pain Palliative care by specialist Generalized anxiety disorder Constipation due to pain medication Counseling regarding advanced directives and goals of care Pneumonia (Acute) Abdominal pain (Chronic) Swelling of left foot Groin pain, chronic, left Ilioinguinal neuralgia of left side Neural foraminal stenosis of lumbar spine Left L4-5 Opioid dependence (Chronic) Left flank pain Lumbar disc herniation with radiculopathy Back pain (Acute) residential (current) use of antithrombotics/antiplatelets (Acute) Acute dehydration (Acute) Elevated troponin (Acute) Diffuse abdominal pain (Acute) Acute herpes zoster neuropathy (Acute) Infection due to Rivas catheter MRSA bacteremia Ulcer of second toe of left foot (Acute) Elevated lactic acid level (Acute) Abscess of right axilla Axillary hidradenitis suppurativa (Acute) Vomiting (Acute) Headache (Acute) Constipation (Acute) Diarrhea (Acute) Internal jugular (IJ) vein thromboembolism, acute Anemia Vitamin D deficiency Shoulder pain B12 deficiency Acute leg pain (Acute) Costochondritis Globus pharyngeus Somatic dysfunction of thoracic region Chronic pain syndrome Acute adjustment disorder with mixed anxiety and depressed mood Diarrhea Scapular dyskinesis Injury of left rotator cuff Numbness of upper extremity Status post spinal surgery Gastroparesis (Acute) Vitamin D deficiency Esophagitis History of tobacco use Toe ulcer, right MRSA (methicillin resistant staph aureus) culture positive Rash and nonspecific skin eruption Stye Acute hyperglycemia (Acute) Tenosynovitis of ankle Surgical wound, non healing (Acute) Ankle ulcer due to DM Encounter for pre-operative examination Anxiety Diarrhea Emphysema lung Cellulitis of left foot (Acute) Diabetic foot ulcer (Acute) Acute leg pain (Acute) Iron deficiency anemia History of amputation of great toe Diabetic peripheral neuropathy Depression Nonobstructive atherosclerosis of coronary artery Chronic back pain Medical History Dysphagia Lumbar radiculopathy, right Type 2 diabetes mellitus Uncontrolled hypertension GERD (gastroesophageal reflux disease) Amputation of left great toe Poor venous access Hyponatremia Intractable neuropathic pain of left lower extremity Gastroparesis Leukocytosis Chronic pain Insomnia HTN (hypertension) PAD (peripheral artery disease) Hypertension Groin pain Foot pain Infection of left great toe due to methicillin resistant Staphylococcus aureus (MRSA) Diastolic CHF COVID-19 Osteomyelitis of great toe of left foot Opiate dependence Opiate abuse, continuous Acidosis, lactic Acute dehydration Gastroenteritis Sepsis Shortness of breath Opioid dependence Insomnia 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 No issues per anesthesia postop progress note. Anemia Hyponatremia Cellulitis Peripheral neuropathy Benzodiazepine withdrawal Right second toe ulcer Diabetes mellitus type 2, uncontrolled Hyperlipidemia Seizures Gastritis Numbness of lower extremity Hypertriglyceridemia CAD (coronary artery disease) History of tobacco use Benzodiazepine dependence Diabetic neuropathy Abdominal pain Gastroparesis Esophagitis determined by endoscopy GIB (gastrointestinal bleeding) Insulin dependent diabetes mellitus DM2 (diabetes mellitus, type 2) IDDM, A1c 07/2021-11% Surgical History History of lumbar fusion L5-S1 from 2004, [place] History of lumbar surgery History of esophagogastroduodenoscopy (EGD) Family History Mother , age 63 Myocardial infarction Father , age 68 or 69 Myocardial infarction Brother S/P CABG (coronary artery bypass graft) Sister Myocardial infarction x 3; she is 57yo Social History Smoking Status: Former smoker Tobacco Type: Cigarettes packs per day: 0.5; Second Hand Exposure: No; Do You Dip or Chew Tobacco: No; Hx Alcohol Use: No Hx Substance Use: Yes Prescribed Medications: Marijuana Last Used Substance: Unknown Last Used Substance Other:: Medical marijuana Substance Use Type Other:: Medical marijuana Preferred Language: Amharic Communication Ability: Effective Visual Impairment: No Limitations Hearing Ability: Normal Rehabilitation Therapy Technician Required: No Beliefs That Will Affect Care: None marital status: Current Living Situation: Spouse Current Living Situation Comment: lives at home with current occupational status: unemployed 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 other: raising a grandchild as well; lives in [place] Feels Safe at Home: Yes Diet: diabetic and low salt during the past year weight has: remained stable Assistive Devices: Walker and Wheelchair Physical Exam Constitutional: well developed and + acute distress (rocking in pain); + not well nourished Respiratory: normal respiratory effort, lungs clear to auscultation Cardiovascular: Rate/Rhythm: regular rate and regular rhythm Vessels: dorsalis pedis pulses present Extremities: normal capillary refill; no edema Gastrointestinal (Abdomen): normal bowel sounds, soft, nontender, no hepatosplenomegaly Musculoskeletal: ecchymosis over right patella Psychiatric: Orientation: alert Affect: + anxious affect and + tearful affect Mood: + anxious mood Results & Data Results & Data Vital Signs (Past 12 Hours) Vital Signs Temp Pulse Pulse Resp BP BP Pulse Ox 10/01/24 15:30 79 21 123/81 98 10/01/24 14:23 93 H 10/01/24 11:45 37 C 98 H 18 161/103 H 98 O2 Del Method 10/01/24 15:30 Room Air 10/01/24 14:23 10/01/24 11:45 Room Air Laboratory Results Abnormal lab results 10/01/24 10/01/24 Range/Units 11:44 12:07 RBC 5.97 H (4.20-5.40) M/uL MCV 74.9 L (80.0-100.0) fL MCH 23.8 L (25.0-34.0) pg MCHC 31.8 L (32.0-36.0) g/dL RDW Coeff of Maria Del Carmen 17.2 H (11.5-14.5) % Yell # (Auto) 0.68 H (0.11-0.59) K/uL Sodium 135 L (136-145) mmol/L Creatinine 0.53 L (0.6-1.2) mg/dl BUN/Creatinine Ratio 35.8 H (10-20) Glucose 109 H (70-99(Fasting)) mg/dl Total Protein 8.4 H (6.0-8.3) gm/dl SARS-CoV-2 (PCR) DETECTED A (NotDetected) Diagnostic Findings CT ANGIOGRAPHY OF THE LEFT LOWER EXTREMITY CLINICAL HISTORY: Groin pain down to foot, hx of PAD. COMPARISON STUDY: Left lower extremity arterial Doppler ultrasound December 30, 2023. CTA with runoff July 14, 2021. CTA of the abdomen and pelvis July 01, 2024. TECHNIQUE: Helical axial images of the mid to lower abdomen, pelvis and left lower extremity were obtained during arterial phase following intravenous injection 120 cc of Optiray 320 IV. Sagittal and coronal reconstructions were viewed as well as maximal intensity projections on an independent 3-D workstation. Automated exposure control was utilized for the study. A dose lowering technique was utilized adhering to the principles of ALARA. FINDINGS: Visualized portions of the liver are unremarkable on arterial phase exam. There is no biliary ductal dilatation status post cholecystectomy. Spleen, adrenal glands and pancreas are unremarkable. There is no evidence for a bowel obstruction. The caliber and wall thickness of small and large bowel are normal. There are postoperative findings within the spine. There is no abdominal lymphadenopathy. No fluid collections are present. Postoperative findings consistent with right below-knee amputation. There is extensive plaque with multifocal stenoses within the right lower extremity vasculature. There is extensive atherosclerotic plaque within the abdominal aorta. No abdominal aortic aneurysm is present. Branch vessels are patent. There is exte nsive plaque within the left lower extremity vasculature. The left common iliac artery is patent. There is mild stenosis of the left external iliac artery. There is moderate stenosis of the left common femoral artery. There are moderate multifocal stenoses within the left superficial femoral artery. The left popliteal artery is patent. There is occlusion of the proximal left anterior tibial artery with distal reconstitution. The left dorsalis pedis is patent. The left peroneal artery is patent to the level of the syndesmosis. Multifocal stenoses of the left posterior tibial artery are present with occlusion and distal reconstitution. There is trace flow within the distal left posterior tibial artery. IMPRESSION: 1. Extensive atherosclerotic plaque within the left lower extremity. 2. Moderate multifocal stenoses within the left superficial femoral artery. 3. Occlusion of the proximal left anterior tibial artery which is new since CT of July 14, 2021. Distal reconstitution with patent left dorsalis pedis. 4. Occlusion of the distal left posterior tibial artery with distal reconstitution. Overall, significantly diminished flow within the left calf vessels. 5. Extensive plaque within the abdominal aorta. No aneurysm or stenosis within the abdominal aorta. Patent left common iliac artery. 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 6. Status post right below knee amputation. Medications Administered ER medications given: Ondansetron 4 mg IV Dilaudid 0.5 mg IV Code Status & VTE Plan Code Status Full VTE Prophylaxis Plan VTE Prophylaxis will be ordered: Yes PG Care Time/CCT Total # of Minutes Spent Total Time Spent with Patient: Total time spent is greater than 50% in coordination of care (as documented) at patient's floor/unit and/or counseling patient: Coding Level of Care Code 80429 INT INP/OBS CARE 3/75MIN Diagnoses Chronic pain G89.29 Chronic pain type: other chronic pain SARS-CoV-2 positive U07.1 (1) Chronic pain Chronic pain type: other chronic pain Qualified Code(s): G89.29 - Other chronic pain
[2024-10-01] MEDS: oxyCODONE HCL IR 5 MG TAB (IMMEDIATE RELEASE) PO PRN (20:26)
[2024-10-01] MEDS: LIDOCAINE 5% 1 PATCH TD SCH (20:46)
[2024-10-01] MEDS ORDERED: NON-FORMULARY MEDICATION (Insulin Glargine [Lantus Solostar U-100 Insulin] 100 unit/mL (3 SQ SCH (21:00)
[2024-10-01] MEDS: POLYETHYLENE (MIRALAX) 17 GM PACK PO SCH (21:22)
[2024-10-01] MEDS: DOCUSATE SODIUM 100 MG CAP PO SCH (21:27)
[2024-10-01] MEDS: ALPRAZolam 0.5 MG TABLET PO PRN (21:27)
[2024-10-01] MEDS: hydrALAZINE HCL 25 MG TAB PO SCH (21:28)
[2024-10-01] MEDS: cloNIDine HCL 0.1 MG TAB PO SCH (21:28)
[2024-10-01] MEDS: hydrOXYzine HCl 25 MG TAB PO SCH (21:28)
[2024-10-01] MEDS: PREGABALIN 100 MG CAP PO SCH (21:29)
[2024-10-01] MEDS: rOPINIRole HCL 2 MG TABLET PO SCH (21:29)
[2024-10-01] MEDS: SUCRALFATE 1 GM/10 ML UDC PO SCH (21:29)
[2024-10-01] MEDS: LANTUS PER UNIT CHARGE SC SCH (21:47)
[2024-10-02] MEDS: KETOROLAC TROMETHAMINE 15 MG/ML VIAL IV ONE (00:27)
[2024-10-02] MEDS: ACETAMINOPHEN 1,000 MG/100 ML VIAL IV STA (00:29)
[2024-10-02] MEDS: PREGABALIN 100 MG CAP PO STA (01:30)
[2024-10-02] MEDS: KETOROLAC TROMETHAMINE 15 MG/ML VIAL IV PRN (04:23)
[2024-10-02] MEDS: CLOPIDOGREL BISULFATE 75 MG TAB PO SCH (08:01)
[2024-10-02] MEDS: METOPROLOL SUCC 50MG EXT REL TAB PO SCH (08:02)
[2024-10-02] MEDS: ARIPiprazole 5 MG TAB PO SCH (08:02)
[2024-10-02] MEDS: DULoxetine HCL 60 MG CAP PO SCH (08:02)
[2024-10-02] MEDS: lisinopril 20 MG TAB PO SCH (08:03)
[2024-10-02] MEDS: ASPIRIN 81 MG ECTAB PO SCH (08:04)
[2024-10-02] MEDS: ENOXAPARIN INJ 40 MG/0.4 ML SYR SQ SCH (08:04)
[2024-10-02] MEDS: ACETAMINOPHEN 500 MG TAB PO SCH (08:18)
[2024-10-02] MEDS ORDERED: NALOXONE HCL 0.4 MG/1 ML VIAL/CARP IV PRN (08:57)
--- NOTE | 2024-10-02 08:57 | Palliative Care Consultation ---
Date of Consultation October 02, 2024 Assessment & Plan (1) Left leg pain: Home regimen Oxy IR 20mg approx 8-10 daily, no relief Prior methadone was stopped by pt She has a long hx of stopping meds when she feels they do not help and then she will also delay her own care, to her own detriment She has a prior substance abuse history in distant past She is a former smoker She is opioid tolerant +manipulative behaviors, splitting teams pt is using oral oxycodone 160 - 200mg daily without relief 200mg oxy = 600mg oral MS equivalents (OMEs) 600mg PO MS = 200mg IV MS = dilaudid 40mg IV daily equivalent Begin dilaudid FLYER MAKER 0.1 mg per hour with 0.2mg FLYER MAKER q15min Stop oxyIR PO Await vascular surgery eval and additional imaging reccs (2) Severe left groin pain: see #1 (3) Left flank pain: See #1 (4) Peripheral arterial occlusive disease: Await vascular surgery eval (5) Manipulative behavior: Patient presents with a complex history of long-standing psychiatric issues, significant psychosocial trauma, and substance use, which contribute to her behavioral challenges. She has a tendency to engage in manipulative behaviors, including attempts to divide staff by assigning blame to different teams at different times. In order to optimize care and communication, it is important for all providers to maintain a unified approach, delivering tanner information in a consistent and direct manner. Attempts to assign blame or introduce misconceptions should be met with a neutral and factual response. A collaborative, non-confrontational approach will help foster a therapeutic relationship, and it is essential to avoid blaming the patient for her challenges. This approach will improve communication and support more effective engagement with her care. (6) Depression due to physical illness: (7) Anxiety associated with depression: (8) PAD (peripheral artery disease): (9) Weakness generalized: (10) Advanced care planning/counseling discussion: A 60min face to face ACP meeting was held at the bedside with elva Peña isolation precautions were in place. We discussed her overall, generalized decline. She is growing weary of her QOL She struggles with ADLs There is financial stress There is marital stress with She fatigues much more easily She is angry she has covid and states she does not go anywhere so why is she being punished with covid she has not been eating or sleeping for weeks due to pain she feels no one in medical systems wants to help her she feels she is being treated like a drug addict she feels her concerns are dismissed by everyone from family, friends to healthcare teams she states she knows she may need another amputation "but i'm getting sick of having pieces of me chopped off. they already took my one leg, toes from this leg and now i know they are going to want to take this leg. I don't know if I want to live like this. I don't think this is living anymore." She states she has been losing/declining QOL for last 1-2 years. She feels is unable to provide support the way she needs and also because he works radio time salesperson in the [place] area, he is not nearby when she is home alone all day and there is no one else to help her. She fears life in a [facility] where she feels she will be forced to relinquish any control over her life. We spoke about her goals. She indicates pain relief is her top priority followed by trying to fix her leg. She would like to avoid losing a limb and asks if there may be a medication to take instead. She then states "but if i have to have it taken off then they have to do it." We spoke about code status. I shared my worries that she is at risk for sepsis terrie with patricia, declining PS, worsening PAD/PVD, malnutrition. I advised her I did not believe CPR would offer meaningful benefit that would improve her QOL above current baseline nor will CPR cure, reverse or otherwise fix her underlying issues. She emphatically states she does not want to be placed on machines and she does not want to have CPR. She states "you need to let me go when the time comes, i don't want to live like this and I don't want to keep enduring this sh*t." We discussed DNR/DNI with continuity of current care. She elects no code/DNR-DNI and code status was changed. We agreed for now we will treat what's treatable and fix what's fixable. If she acutely declines and things are not getting better she would want more conversation about hospice and tells me she has spoken with PCP and asked for hospice, hoping that it means she could have ATC care at home and she was unhappy to hear that is not what hospice provides, however she notes if she is dying she would want that hospice plan of care. (11) Palliative care by specialist: Introduced Palliative Medicine and explained our role in patient's care. Patient and/or family were receptive to palliative services for goals of care discussions. Reviewed we are different from hospice, a home health nurse visiting service. (12) COVID: (13) Opioid dependence: Substance use status: with unspecified opioid-induced disorder Qualified Code(s): F11.29 - Opioid dependence with unspecified opioid-induced disorder (14) Back pain: Plan * Patient presents with a complex medical history, including terminal vascular disease and multiple advanced comorbidities, with no potential for cure or reversal. * She is highly opioid tolerant, and the management of her pain now necessitates escalating and rotating opioids as part of her care plan. A Dilaudid FLYER MAKER was initiated this morning. She had some sleepiness and BP decrease with initial treatment, which improved when basal rate of 0.1mg was stopped and some IVF was given. Suspect this hypotension is multifactorial and not purely opioid related given her high OMEs and longstanding opioid tolerance/chronic opioid use and current maladies of vascular failure and COVID. She is at risk for sepsis. We discussed this at length today and she is clear that should things worsen in spite of her therapies, a focus on quality EOL care is desired. * The patient is likely to seek opioid management for pain relief and may resist or decline more invasive interventions such as surgery, due to her belief that such treatments will not improve or significantly alter her quality of life. * She expresses significant distress about her declining quality of life and worsening pain, and her awareness of the increasing complexity of her needs, coupled with fears of losing her remaining autonomy, contribute to her behavioral challenges. A compassionate and patient-centered approach, with clear communication about her treatment options, is essential in addressing her concerns while managing her care effectively. * I am away Tuesday 10/03, pall med will be covered by [facility] Zheng.Pt is aware she will be seeing Tracie tomorrow and in agreement with this plan. She is aware Tracie will make determinations re opioid management and symptom needs. I am available by pager / telephone as cellular service will allow through Sunday. Thank you for allowing us to participate in the ongoing care of this patient. Please page with any additional concerns. Ree Driscoll DNP Director, Palliative Medicine History of Present Illness Reason for Consultation: severe acute and chronic pain, severe vascular disease, copd, known to [facility] Attending Physician: Ricardo Hernadez History of Present Illness Mariana Witt is a 59yo female known to palliative med from prior admission. At that time she was transitioned to methadone for her severe pain which was not improving with escalating doses of oxycodone, she cannot tolerate oxycontin and morphine gave her mouth blisters, and the only transient relief w/IV dilaudid until dc. During this last admission, methadone transition was discussed and approved with her PCP for ongoing mgt as pt did not want to come to [facility] for OP clinic follow up. A few points of clarity: Pt has a long standing hx of manipulative behavior with staff, proviider teams and nursing. She will alternately fire and then re engage various members of the [facility] teams. Since dc, pt reports stopping methadone and asking pcp to restart oxycodone. She called [facility] OP office last week asking if she would be treated fairly for pain mgt as PCP was advising her to seek admission for LLE which was reported to be "cold as a block of ice" for week and sometimes it was turning dark blue in color. She has a few toes amputated off LLE already and R AKA. I encouraged pt to follow her PCP's reccs since he was seeing her on the ongoing manner. I advised her [facility] teams are committed to helping her and a vascular surgery consult was needed to help determine her issues. Pt did not come to ED as advised that day. A few days later she came to ED and was dc home from ED. She returned again a few days later and this time complains of worsening very severe pain. She was again directed to [facility] by her PCP. Chart indicates "PCP contacted [facility]." This did not happen. Our dept was not notified by PCP nor were any records sent. of note, her PCP has my cell phone for direct communication and no calls were received. Pt came to ED with advice from her PCP "Palliative Care will admit you to their service, I already notified them." [facility] is a consult service, not admitting team. We ahd zero contact from her PCP. We were asked to see pt by ED and in d/w ED last night, darshan king advised she wi ll need acute admission and vascular surgery eval, and for pain we recc Dilaudid FLYER MAKER would be best modality to manage her very severe pain until some determination of what can be options for treatment are determined. Vascular imaging today revealed: 1. Diminished left NATHAN at 0.82. This is indicative of mild to moderate severity peripheral arterial disease 2. Lack of detectable blood flow within the left toes, which could be due to distal arterial occlusion Pain mgt consult was requested to assess for ilioinguinal nerve block. At last pain clinic appt, it was noted "Should the patient have significant short-term relief from the ilioinguinal nerve block we discussed that it may take 7-10 days for the steroid to be effective. Should she fail to have sustained relief, but experienced short-term relief with tentatively plan for repeat ilioinguinal nerve block potentially followed by radiofrequency ablation." Mariana reports very severe pain in her LLE, groin to foot, no sensation below the forefoot area just below ankle. She is extremely fatigued pain has been escalating for 4+ weeks She has not been sleeping or eating for past 2+ weeks she is weak she is experiencing more anxiety and depression she is tearful throughout most of this visit she is also covid + this admission. she does not feel very SOB but does not that she feels more easily winded, occ cough Allergies Allergy/AdvReac Type Severity Reaction Status Date / Time morphine Allergy Severe blisters Verified 02/10/24 22:40 in mouth Sulfa (Sulfonamide Allergy Severe rash/swelli Verified 02/10/24 22:40 Antibiotics) ng amoxicillin [From Augmentin] Allergy Intermediate itching/power Verified 02/10/24 22:40 h ceftriaxone [From Rocephin] Allergy Intermediate Hives Verified 02/10/24 22:40 clavulanic acid Allergy Intermediate itching/power Verified 02/10/24 22:40 [From Augmentin] h erythromycin base Allergy Intermediate Hives Verified 02/10/24 22:40 vancomycin Allergy Intermediate YULIYA Verified 02/10/24 22:40 SYNDROME---CAN TAKE IF VERY SLOW DRIP. adhesive AdvReac Intermediate DERMABOND Verified 02/10/24 22:40 excoriates skin gabapentin AdvReac Intermediate Nausea Verified 02/10/24 22:40 iron [From Venofer] AdvReac Intermediate Hypertensio Verified 02/10/24 22:40 n Home Medications Medication Instructions Recorded Confirmed Type insulin glargine 100 unit/mL (3 10 unit subcut HS 10/17/22 09/28/24 History mL) subcutaneous pen (Lantus Solostar U-100 Insulin) alprazolam 1 mg tablet 1 mg PO TID PRN Anxiety 05/08/23 10/01/24 History docusate sodium 100 mg capsule 100 mg PO BID 05/08/23 09/28/24 History metoprolol succinate 50 mg 50 mg PO QAM 05/08/23 09/28/24 History tablet,extended release 24 hr (Toprol XL) clopidogrel 75 mg tablet (Plavix) 75 mg PO DAILY #30 tabs 05/10/23 09/28/24 Rx prochlorperazine maleate 5 mg 5 mg PO TID PRN Nausea 06/13/23 09/28/24 History tablet aspirin 81 mg tablet,delayed 81 mg PO DAILY 09/19/23 09/28/24 History release hydralazine 25 mg tablet 25 mg PO TID 09/19/23 09/28/24 History lidocaine 5 % topical patch 1 patch transdermal QAM #14 ea 12/13/23 09/28/24 Rx clonidine HCl 0.1 mg tablet 0.1 mg PO Q8H #90 tabs 04/03/24 09/28/24 Rx cyanocobalamin (vitamin B-12) 500 1,000 mcg (2 x 500 mcg) PO QAM #30 04/03/24 09/28/24 Rx mcg tablet tabs naloxone 4 mg/actuation nasal spray 4 mg intranasal ONCE PRN opioid 04/03/24 09/28/24 Rx overdose #2 ea polyethylene glycol 3350 17 gram 17 g PO BID #0 ea 04/03/24 09/28/24 Rx oral powder packet (Miralax) pregabalin 100 mg capsule (Lyrica) 100 mg PO TID #90 caps 04/03/24 09/28/24 Rx sennosides 8.6 mg tablet (Senokot) 17.2 mg (2 x 8.6 mg) PO BID PRN 04/03/24 09/28/24 Rx constipation #60 tabs duloxetine 60 mg capsule,delayed 60 mg PO DAILY 06/02/24 09/28/24 History release insulin aspart 5 unit subcut TIDM 06/02/24 09/28/24 History (niacinamide)(U-100) 100 unit/mL(3 mL) subcutaneous pen (Fiasp FlexTouch U-100 Insulin) lisinopril 20 mg tablet 20 mg PO DAILY 06/02/24 09/28/24 History ropinirole 4 mg tablet 8 mg PO HS 06/02/24 09/28/24 History sucralfate 100 mg/mL oral 1 g (10 mL) PO ACHS #200 mL 06/05/24 09/28/24 Rx suspension (Carafate) doxycycline hyclate 100 mg capsule 100 mg PO BID #14 caps 06/23/24 09/28/24 Rx aripiprazole 5 mg tablet (Abilify) 2.5 mg (1/2 x 5 mg) PO QAM #30 tabs 07/09/24 09/28/24 Rx hydroxyzine HCl 25 mg tablet 50 mg (2 x 25 mg) PO HS #30 tabs 07/09/24 09/28/24 Rx clindamycin HCl 150 mg capsule 150 mg PO Q6H 7 days #28 caps 09/28/24 Rx Patient History Medical History Dysphagia Lumbar radiculopathy, right Type 2 diabetes mellitus Uncontrolled hypertension GERD (gastroesophageal reflux disease) Amputation of left great toe Poor venous access Hyponatremia Intractable neuropathic pain of left lower extremity Gastroparesis Leukocytosis Chronic pain Insomnia HTN (hypertension) PAD (peripheral artery disease) Hypertension Groin pain Foot pain Infection of left great toe due to methicillin resistant Staphylococcus aureus (MRSA) Diastolic CHF COVID-19 Osteomyelitis of great toe of left foot Opiate dependence Opiate abuse, continuous Acidosis, lactic Acute dehydration Gastroenteritis Sepsis Shortness of breath Opioid dependence Insomnia 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 No issues per anesthesia postop progress note. Anemia Hyponatremia Cellulitis Peripheral neuropathy Benzodiazepine withdrawal Right second toe ulcer Diabetes mellitus type 2, uncontrolled Hyperlipidemia Seizures Gastritis Numbness of lower extremity Hypertriglyceridemia CAD (coronary artery disease) History of tobacco use Benzodiazepine dependence Diabetic neuropathy Abdominal pain Gastroparesis Esophagitis determined by endoscopy GIB (gastrointestinal bleeding) Insulin dependent diabetes mellitus DM2 (diabetes mellitus, type 2) IDDM, A1c 07/2021-11% Surgical History History of lumbar fusion L5-S1 from 2005, [place] History of lumbar surgery History of esophagogastroduodenoscopy (EGD) Family History Mother , age 63 Myocardial infarction Father , age 68 or 69 Myocardial infarction Brother S/P CABG (coronary artery bypass graft) Sister Myocardial infarction x 3; she is 57yo Social History Smoking Status: Former smoker Tobacco Type: Cigarettes packs per day: 0.5; Second Hand Exposure: No; Do You Dip or Chew Tobacco: No; Hx Alcohol Use: No Hx Substance Use: Yes Prescribed Medications: Marijuana Last Used Substance: Unknown Last Used Substance Other:: Medical marijuana Substance Use Type Other:: Medical marijuana Preferred Language: Kazakh Communication Ability: Effective Visual Impairment: No Limitations Hearing Ability: Normal [employer] Driver Required: No Beliefs That Will Affect Care: None marital status: Current Living Situation: Spouse Current Living Situation Comment: lives at home with current occupational status: unemployed 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 Other Information That Helps Us Care for You: No other: raising a grandchild as well; lives in [place] Feels Safe at Home: Yes Safety Concerns: Feels Safe At This Time Diet: diabetic and low salt during the past year weight has: remained stable Assistive Devices: Bedside Commode, Glasses, Walker and Wheelchair Review of Systems Review of Systems: All systems reviewed & are unremarkable except as noted in Subjective Physical Exam Constitutional: + acute distress, + ill appearing, + phy sical limitations, + frail appearing, + disheveled, + malnourished and + underweight Eyes: PERRL ENMT: Ears: + hearing impairment Mouth: + dry oral mucous membranes, + dentition abnormality, + gingival abnormality, + dental caries, + poor dentition, + chipped teeth and + loose teeth Neck: trachea midline, no thyromegaly + limited neck extension Respiratory: + cough, able to speak in complete sente nces and symmetric chest movement Auscultation: + diminished lung sounds and + crackles (faint) Cardiovascular: Rate/Rhythm: regular rate and regular rhythm Heart Sounds: normal S1 and normal S2 R NIKKI BLACKMAN with multiple toe amputations no sensation below ankle at dorsal aspect left foot is cool to touch, coldest at toes and sole of foot to retirement up dorsal aspect there is mild hyperemia mild violaceous discoloration at sole of left foor Gastrointestinal (Abdomen): Inspection/Auscultation: abdomen normal to inspection and normal bowel sounds Musculoskeletal: R AKA LLE diminished strength gen weakness Diminished strength Skin: pallor, dry Neurologic: AAOx3 Psychiatric: Orientation: alert, oriented x 3 and + guarded Eye Contact: + fair eye contact Speech: + pressured speech Affect: + depressed affect, + anxious affect, + tearful affect, + labile affect, + irritable affect and + angry affect Mood: + depressed mood, + anxious mood, + irritable mood and + angry mood Thought Process: + circumstantial thought process, + tangential thought process and + perseveration Thought Content: + preoccupation, + paranoid, + cognitive distortions, + thought insertion, + thought broadcasting, + hopelessness, + worthlessness and + loneliness Suicidal Thoughts: denies suicidal thoughts Homicidal Thoughts: denies homicidal thoughts Cognition: recent memory grossly intact Estimated Intelligence: consistent with education level Insight: + limited insight Judgment: + limited judgement Results & Data Vital Signs (Past 12 Hours) Vital Signs Temp Pulse Pulse Pulse Resp BP Pulse Ox 10/02/24 08:01 36.8 C 97 H 20 99 10/02/24 01:25 36.3 C L 83 18 199/82 H 98 10/02/24 00:47 73 18 168/106 H 97 10/01/24 23:12 88 10/01/24 22:37 90 18 166/113 H 99 O2 Del Method 10/02/24 08:01 Room Air 10/02/24 01:25 Room Air 10/02/24 00:47 Room Air 10/01/24 23:12 10/01/24 22:37 Room Air Laboratory Results 10/02/24 10/02/24 10/01/24 Range/Units 11:34 06:04 12:07 WBC 8.29 8.67 (4.8-10.8) K/ul RBC 5.76 H 5.97 H (4.20-5.40) M/uL Hgb 13.5 14.2 (12.0-16.0) g/dl Hct 43.3 44.7 (37.0-47.0) % MCV 75.2 L 74.9 L (80.0-100.0) fL MCH 23.4 L 23.8 L (25.0-34.0) pg MCHC 31.2 L 31.8 L (32.0-36.0) g/dL RDW Std Deviation 45.3 44.5 (36.4-46.3) fL RDW Coeff of Maria Del Carmen 17.8 H 17.2 H (11.5-14.5) % Plt Count 249 258 (130-400) K/uL MPV 10.2 10.2 (9.4-12.4) fL Immature Gran % (Auto) 0.2 0.2 % Neut % (Auto) 41.5 59.5 % Lymph % (Auto) 45.6 30.0 % Norman % (Auto) 9.9 7.8 % Eos % (Auto) 2.2 2.2 % Baso % (Auto) 0.6 0.3 % Neut # (Auto) 3.44 5.15 (1.40-6.50) K/uL Lymph # (Auto) 3.78 H 2.60 (1.20-3.40) K/uL Norman # (Auto) 0.82 H 0.68 H (0.11-0.59) K/uL Eos # (Auto) 0.18 0.19 (0.00-0.50) K/uL Baso # (Auto) 0.05 0.03 (0.00-0.20) K/uL Immature Gran # (Auto) 0.02 0.02 (0.01-0.20) K/uL PT 9.6 (9.0-12.0) Seconds INR 0.9 (0.9-1.1) APTT 23 (21-31) Seconds PTT Ratio 0.9 VBG pH 7.37 (7.36-7.41) VBG pCO2 55 H (38-50) mmHg VBG pO2 22 mmHg VBG HCO3 32 mmol/L VBG O2 Saturation < 60.0 % VBG Base Excess 5.0 mEq/L Sodium 137 135 L (136-145) mmol/L Potassium 4.3 4.8 (3.5-5.1) mmol/L Chloride 101 101 (98-107) mmol/L Carbon Dioxide 29 29 (21-32) mmol/L Anion Gap 7 5 (3-11) BUN 13 19 (6-23) mg/dl Creatinine 0.76 0.53 L (0.6-1.2) mg/dl Est Cr Clr Drug Dosing 62.3 Not Reportable eGFR 89.65 105.81 BUN/Creatinine Ratio 17.1 35.8 H (10-20) Glucose 135 H 109 H (70-99(Fasting)) mg/dl Calcium 9.7 9.7 (8.6-10.3) mg/dl Total Bilirubin 0.6 0.4 (0.2-1.0) mg/dl AST 15 13 (13-39) U/L ALT 8 9 (7-52) U/L Alkaline Phosphatase 68 74 (34-104) U/L Total Creatine Kinase 33 (26-192) U/L Troponin I High Sens 8.0 (0-14) pg/ml Total Protein 7.8 8.4 H (6.0-8.3) gm/dl Albumin 4.6 4.8 (3.4-5.0) gm/dl Globulin 3.2 3.6 (2.5-4.0) gm/dl Albumin/Globulin Ratio 1.4 1.3 (0.9-2) Adenovirus (PCR) (NotDetected) B. pertussis DNA (PCR) (NotDetected) B.parapertussis DNA PCR (NotDetected) C. pneumoniae DNA (PCR) (NotDetected) Coronavirus OC43 (PCR) (NotDetected) Coronavirus HKU1 (PCR) (NotDetected) Coronavirus 229E (PCR) (NotDetected) SARS-CoV-2 (PCR) (NotDetected) Coronavirus NL63 (PCR) (NotDetected) Human Metapneumovir PCR (NotDetected) Influenza Type A (PCR) (NotDetected) Influenza Type B (PCR) (NotDetected) M. pneumoniae (PCR) (NotDetected) Parainfluenza 1 (PCR) (NotDetected) Parainfluenza 2 (PCR) (NotDetected) Parainfluenza 3 (PCR) (NotDetected) Parainfluenza 4 (PCR) (NotDetected) RSV (PCR) (NotDetected) Entero/Rhino (PCR) (NotDetected) 10/01/24 Range/Units 11:44 WBC (4.8-10.8) K/ul RBC (4.20-5.40) M/uL Hgb (12.0-16.0) g/dl Hct (37.0-47.0) % MCV (80.0-100.0) fL MCH (25.0-34.0) pg MCHC (32.0-36.0) g/dL RDW Std Deviation (36.4-46.3) fL RDW Coeff of Maria Del Carmen (11.5-14.5) % Plt Count (130-400) K/uL MPV (9.4-12.4) fL Immature Gran % (Auto) % Neut % (Auto) % Lymph % (Auto) % Norman % (Auto) % Eos % (Auto) % Baso % (Auto) % Neut # (Auto) (1.40-6.50) K/uL Lymph # (Auto) (1.20-3.40) K/uL Norman # (Auto) (0.11-0.59) K/uL Eos # (Auto) (0.00-0.50) K/uL Baso # (Auto) (0.00-0.20) K/uL Immature Gran # (Auto) (0.01-0.20) K/uL PT (9.0-12.0) Seconds INR (0.9-1.1) APTT (21-31) Seconds PTT Ratio VBG pH (7.36-7.41) VBG pCO2 (38-50) mmHg VBG pO2 mmHg VBG HCO3 mmol/L VBG O2 Saturation % VBG Base Excess mEq/L Sodium (136-145) mmol/L Potassium (3.5-5.1) mmol/L Chloride (98-107) mmol/L Carbon Dioxide (21-32) mmol/L Anion Gap (3-11) BUN (6-23) mg/dl Creatinine (0.6-1.2) mg/dl Est Cr Clr Drug Dosing eGFR BUN/Creatinine Ratio (10-20) Glucose (70-99(Fasting)) mg/dl Calcium (8.6-10.3) mg/dl Total Bilirubin (0.2-1.0) mg/dl AST (13-39) U/L ALT (7-52) U/L Alkaline Phosphatase (34-104) U/L Total Creatine Kinase (26-192) U/L Troponin I High Sens (0-14) pg/ml Total Protein (6.0-8.3) gm/dl Albumin (3.4-5.0) gm/dl Globulin (2.5-4.0) gm/dl Albumin/Globulin Ratio (0.9-2) Adenovirus (PCR) Not Detected (NotDetected) B. pertussis DNA (PCR) Not Detected (NotDetected) B.parapertussis DNA PCR Not Detected (NotDetected) C. pneumoniae DNA (PCR) Not Detected (NotDetected) Coronavirus OC43 (PCR) Not Detected (NotDetected) Coronavirus HKU1 (PCR) Not Detected (NotDetected) Coronavirus 229E (PCR) Not Detected (NotDetected) SARS-CoV-2 (PCR) DETECTED A (NotDetected) Coronavirus NL63 (PCR) Not Detected (NotDetected) Human Metapneumovir PCR Not Detected (NotDetected) Influenza Type A (PCR) Not Detected (NotDetected) Influenza Type B (PCR) Not Detected (NotDetected) M. pneumoniae (PCR) Not Detected (NotDetected) Parainfluenza 1 (PCR) Not Detected (NotDetected) Parainfluenza 2 (PCR) Not Detected (NotDetected) Parainfluenza 3 (PCR) Not Detected (NotDetected) Parainfluenza 4 (PCR) Not Detected (NotDetected) RSV (PCR) Not Detected (NotDetected) Entero/Rhino (PCR) Not Detected (NotDetected) Diagnostic Findings Lower Extremity CTA 10/01/24 14:21 CT ANGIOGRAPHY OF THE LEFT LOWER EXTREMITY CLINICAL HISTORY: Groin pain down to foot, hx of PAD. COMPARISON STUDY: Left lower extremity arterial Doppler ultrasound December 30, 2023. CTA with runoff July 14, 2021. CTA of the abdomen and pelvis July 01, 2024. TECHNIQUE: Helical axial images of the mid to lower abdomen, pelvis and left lower extremity were obtained during arterial phase following intravenous injection 120 cc of Optiray 320 IV. Sagittal and coronal reconstructions were viewed as well as maximal intensity projections on an independent 3-D workstation. Automated exposure control was utilized for the study. A dose lowering technique was utilized adhering to the principles of ALARA. FINDINGS: Visualized portions of the liver are unremarkable on arterial phase exam. There is no biliary ductal dilatation status post cholecystectomy. Spleen, adrenal glands and pancreas are unremarkable. There is no evidence for a bowel obstruction. The caliber and wall thickness of small and large bowel are normal. There are postoperative findings within the spine. There is no abdominal lymphadenopathy. No fluid collections are present. Postoperative findings consistent with right below-knee amputation. There is extensive plaque with multifocal stenoses within the right lower extremity vasculature. There is extensive atherosclerotic plaque within the abdominal aorta. No abdomi nal aortic aneurysm is present. Branch vessels are patent. There is extensive plaque within the left lower extremity vasculature. The left common iliac artery is patent. There is mild stenosis of the left external iliac artery. There is moderate stenosis of the left common femoral artery. There are moderate multifocal stenoses within the left superficial femoral artery. The left popliteal artery is patent. There is occlusion of the proximal left anterior tibial artery with distal reconstitution. The left dorsalis pedis is patent. The left peroneal artery is patent to the level of the syndesmosis. Multifocal stenoses of the left posterior tibial artery are present with occlusion and distal reconstitution. There is trace flow within the distal left posterior tibial artery. IMPRESSION: 1. Extensive atherosclerotic plaque within the left lower extremity. 2. Moderate multifocal stenoses within the left superficial femoral artery. 3. Occlusion of the proximal left anterior tibial artery which is new since CT of July 14, 2021. Distal reconstitution with patent left dorsalis pedis. 4. Occlusion of the distal left posterior tibial artery with distal reconstitution. Overall, significantly diminished flow within the left calf vessels. 5. Extensive plaque within the abdominal aorta. No aneurysm or stenosis within the abdominal aorta. Patent left common iliac artery. 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 6. Status post right below knee amputation. ACT 112: Negative or not required by law. Electronically signed by: Wilver Powell M.D. 10/01/2024 4:38 PM Ankle Brachial Index 10/02/24 13:56 Clinical history: Left foot pain. 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 A right NATHAN is therefore not possible The left NATHAN is diminished at 0.82. Blood flow could not be detected within the left toes Impression: 1. Diminished left NATHAN at 0.82. This is indicative of mild to moderate severity peripheral arterial disease 2. Lack of detectable blood flow within the left toes, which could be due to distal arterial occlusion Electronically signed by Jose Jones 10-02-2024 4:17 PM PG Care Time/CCT Total # of Minutes Spent Total Time Spent with Patient: Total time spent is greater than 50% in coordination of care (as documented) at patient's floor/unit and/or counseling patient: I spent 130 minutes overall addressing this case: 25 min in medical data review/discussion with referring provider(s) and/or preparation for the visit 25min in direct interaction with the patient/exam 60 min in Advance Care Planning/Goals of Care discussions as detailed above in note (must be >16min) 10 min in subsequent review and synthesis of assessment and plan 20 min communicating with other providers regarding the patient's case: nursing, primary team Advanced Care Planning 24928 Advanced Care Planning 30 Min 33223 Advanced Care Planning Additional 30 [place] [address] IN/OBS CONSULT LVL 5,80M (25 - SIGNIFICANT, SEPARATELY IDENTIFIABLE ) Patient Type New Medical Decision Making High Complexity Diagnoses Left leg pain M79.605 Severe left groin pain R10.32 Left flank pain R10.9 Peripheral arterial occlusive disease I77.9 Manipulative behavior R46.89 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
[2024-10-02] MEDS ORDERED: PREGABALIN 100 MG CAP PO SCH (09:00)
[2024-10-02] MEDS: HYDROmorphone PCA 30 MG/30 ML IV PRN (10:15)
[2024-10-02] MEDS: ONDANSETRON INJ 2 MG/ML 2 ML VIAL IV PRN (10:22)
[2024-10-02] MEDS ORDERED: DEXAMETHASONE SOD INJ 4 MG/ML VIAL IV STA (11:12)
[2024-10-02 11:43] LABS: HCO3 VBG 32 mmol/L; Oxygen Saturation VBG < 60.0 %; PCO2 VBG 55 mmHg (38-50); PO2 VBG 22 mmHg; pH VBG 7.37 (7.36-7.41)
[2024-10-02] MEDS: LACTATED RINGER'S 1,000 ML IV ONE (11:44)
[2024-10-02] MEDS: dexAMETHasone 6 MG in SYRINGE 0 ML IV STA (11:45)
[2024-10-02 11:58] LABS: Basophils # (auto) 0.05 K/uL (0.00-0.20); Basophils % (auto) 0.6 %; Eosinophils # (auto) 0.18 K/uL (0.00-0.50); Eosinophils % (auto) 2.2 %; Hematocrit (blood only) 43.3 % (37.0-47.0); Hemoglobin 13.5 g/dl (12.0-16.0); Immature Granulocytes # (auto) 0.02 K/uL (0.01-0.20); Immature Granulocytes % (auto) 0.2 %; Lymphocytes # (auto) 3.78 K/uL (1.20-3.40); Lymphocytes % (auto) 45.6 %; Mean Corpuscular Hemoglobin 23.4 pg (25.0-34.0); Mean Corpuscular Hgb Conc 31.2 g/dL (32.0-36.0); Mean Corpuscular Volume 75.2 fL (80.0-100.0); Mean Platelet Volume 10.2 fL (9.4-12.4); Monocytes # (auto) 0.82 K/uL (0.11-0.59); Monocytes % (auto) 9.9 %; Neutrophils # (auto) 3.44 K/uL (1.40-6.50); Neutrophils % (auto) 41.5 %; Platelet Count 249 K/uL (130-400); RDW Coefficient of Variation 17.8 % (11.5-14.5); RDW Standard Deviation 45.3 fL (36.4-46.3); Red Blood Count 5.76 M/uL (4.20-5.40); White Blood Count 8.29 K/ul (4.8-10.8)
--- NOTE | 2024-10-02 12:07 | Communication Note ---
Date of Service: October 01, 2024 Incoming call to Palliative care team from pt's spouse. Pt was in ED for acute pain crisis on advice of her PCP. He requested Palliaitive Care consult. Spoke with Dr. Pulido in ED to request Palliative Consult on behalf of family request. Pt is in ED at the time c/o intractable pain in both legs. Dr. Pulido shared difficulty in managing pt's pain, recs offered for pt's home medications to be restarted and consider [employer] dilaudid if pain remains refractory after optimizing oxycodone. PT DOES NOT TOLERATE FENTANYL OR MORPHINE, which limits options to oxy, dilaudid or methadone. Pt was discharged on methadone which managed her pain well while in hospital, it does not appear it was optimized before being discontinued by PCP on pt request. recommend reveiw of previous palliative note with recs and detailed conversations about goals. Palliative care will see pt in the morning 10/03/24 Thank you for including Palliative Care in the management of this patient. Please call with any questions or concerns regarding this consultation.
[2024-10-02 12:14] LABS: Albumin Globulin Ratio 1.4 (0.9-2); Albumin Level 4.6 gm/dl (3.4-5.0); BUN Creatinine Ratio 17.1 (10-20); Bilirubin,Total 0.6 mg/dl (0.2-1.0); Calcium 9.7 mg/dl (8.6-10.3); Creatinine Clr Calc Pharmacy 62.3 ml/min; Globulin 3.2 gm/dl (2.5-4.0); Potassium 4.3 mmol/L (3.5-5.1); Total Protein 7.8 gm/dl (6.0-8.3)
--- NOTE | 2024-10-02 13:30 | Pain Management Consultation ---
Date of Consultation October 02, 2024 Assessment & Plan (1) Chronic pain: Chronic pain type: chronic pain syndrome Qualified Code(s): G89.4 - Chronic pain syndrome (2) SARS-CoV-2 positive: (3) Lower extremity pain: Laterality: left Qualified Code(s): M79.605 - Pain in left leg (4) Groin pain, chronic, left: (5) Opioid dependence: Substance use status: with unspecified opioid-induced disorder Qualified Code(s): F11.29 - Opioid dependence with unspecified opioid-induced disorder Plan 1. Patient with her persisting ongoing chronic complaints of left hip/groin pain and left lower extremity pain in a nondermatomal pattern of unknown etiology. Her pain is currently inconsistent with an ilioinguinal neuralgia or a lumbar radiculopathy. CT angiogram of the left lower extremity completed upon this admission has failed to reveal an obvious vascular contributing cause of her current pain complaint although would defer interpretation to vascular team. I see no reason to update lumbar MRI. There is currently no role for interventional pain management given her presenting complaints. 2. Patient was unwilling to discuss any alternative treatment options besides IV hydromorphone. Will defer medical management to palliative care at this time. 3. Pain service will sign off on patient at this time History of Present Illness Reason for Consultation: Chronic intractable left lower extremity pain Requesting Physician: Silvestre Best MD Attending Physician: Ricardo Hernadez History of Present Illness Mrs. Escobar is a 59-year-old white female who is known to the pain service from multiple prior admissions who was again admitted due to intractable pain in the left groin and left lower extremity in a nondermatomal pattern to the foot. Her pain remains similar in location and characteristic compared to prior. She has undergone extensive evaluation in the past with vascular surgery and orthopedics upon her admissions without definitive etiology of her presenting complaints identified. We had previously performed an ilioinguinal nerve block which appeared to provide possibly some short-term relief although her current complaints appear to be inconsistent with an ilioinguinal neuralgia based on her pain extending throughout the entire lower extremity to the level of the foot. She describes coldness sensation of the left foot. She rates her pain an 8- 10/10 and described as sharp and burning in characteristic pointing to the left groin and thigh area but also describes radiating pain to the level of the foot in a nondermatomal pattern. She has been utilizing oxycodone in the outpatient setting with minimal relief of symptoms. She reported a history of methadone utilization in June 2024 timeframe but felt the methadone was ineffective. She requests IV Dilaudid on multiple occasions. She is swearing frequently throughout the visit indicating nobody is treating her pain and appears unwilling to listen to any recommendations other than her request for IV hydromorphone. Palliative has been consulted but the patient indicates that she is unwilling to discuss treatment with them. She reports some chronic axial low back pain but denies any recent increase in frequency and severity of this pain and has been without recent change. Patient denies bowel/bladder incontinence or saddle anesthesia. She has no right lower extremity radicular pattern pain. She has prior right sided below the knee amputation. Patient had no further constitutional complaints at today's visit. Plan of care discussed with Dr. Deena Sandoval. Pain Assessment Full Body Front + Back: 2 1. Left hip/groin and thigh 2. Left lower extremity-nondermatomal Pain scale - at its best (0-10): 6 Pain scale - at its worst (0-10): 10 Allergies Allergy/AdvReac Type Severity Reaction Status Date / Time morphine Allergy Severe blisters Verified 02/10/24 22:40 in mouth Sulfa (Sulfonamide Allergy Severe rash/swelli Verified 02/10/24 22:40 Antibiotics) ng amoxicillin [From Augmentin] Allergy Intermediate itching/power Verified 02/10/24 22:40 h ceftriaxone [From Rocephin] Allergy Intermediate Hives Verified 02/10/24 22:40 clavulanic acid Allergy Intermediate itching/power Verified 02/10/24 22:40 [From Augmentin] h erythromycin base Allergy Intermediate Hives Verified 02/10/24 22:40 vancomycin Allergy Intermediate YULIYA Verified 02/10/24 22:40 SYNDROME---CAN TAKE IF VERY SLOW DRIP. adhesive AdvReac Intermediate DERMABOND Verified 02/10/24 22:40 excoriates skin gabapentin AdvReac Intermediate Nausea Verified 02/10/24 22:40 iron [From Venofer] AdvReac Intermediate Hypertensio Verified 02/10/24 22:40 n Home Medications Medication Instructions Recorded Confirmed Type insulin glargine 100 unit/mL (3 10 unit subcut HS 10/17/22 09/28/24 History mL) subcutaneous pen (Lantus Solostar U-100 Insulin) alprazolam 1 mg tablet 1 mg PO TID PRN Anxiety 05/08/23 10/01/24 History docusate sodium 100 mg capsule 100 mg PO BID 05/08/23 09/28/24 History metoprolol succinate 50 mg 50 mg PO QAM 05/08/23 09/28/24 History tablet,extended release 24 hr (Toprol XL) clopidogrel 75 mg tablet (Plavix) 75 mg PO DAILY #30 tabs 05/10/23 09/28/24 Rx prochlorperazine maleate 5 mg 5 mg PO TID PRN Nausea 06/13/23 09/28/24 History tablet aspirin 81 mg tablet,delayed 81 mg PO DAILY 09/19/23 09/28/24 History release hydralazine 25 mg tablet 25 mg PO TID 09/19/23 09/28/24 History lidocaine 5 % topical patch 1 patch transdermal QAM #14 ea 12/13/23 09/28/24 Rx clonidine HCl 0.1 mg tablet 0.1 mg PO Q8H #90 tabs 04/03/24 09/28/24 Rx cyanocobalamin (vitamin B-12) 500 1,000 mcg (2 x 500 mcg) PO QAM #30 04/03/24 09/28/24 Rx mcg tablet tabs naloxone 4 mg/actuation nasal spray 4 mg intranasal ONCE PRN opioid 04/03/24 09/28/24 Rx overdose #2 ea polyethylene glycol 3350 17 gram 17 g PO BID #0 ea 04/03/24 09/28/24 Rx oral powder packet (Miralax) pregabalin 100 mg capsule (Lyrica) 100 mg PO TID #90 caps 04/03/24 09/28/24 Rx sennosides 8.6 mg tablet (Senokot) 17.2 mg (2 x 8.6 mg) PO BID PRN 04/03/24 09/28/24 Rx constipation #60 tabs duloxetine 60 mg capsule,delayed 60 mg PO DAILY 06/02/24 09/28/24 History release insulin aspart 5 unit subcut TIDM 06/02/24 09/28/24 History (niacinamide)(U-100) 100 unit/mL(3 mL) subcutaneous pen (Fiasp FlexTouch U-100 Insulin) lisinopril 20 mg tablet 20 mg PO DAILY 06/02/24 09/28/24 History ropinirole 4 mg tablet 8 mg PO HS 06/02/24 09/28/24 History sucralfate 100 mg/mL oral 1 g (10 mL) PO ACHS #200 mL 06/05/24 09/28/24 Rx suspension (Carafate) doxycycline hyclate 100 mg capsule 100 mg PO BID #14 caps 06/23/24 09/28/24 Rx aripiprazole 5 mg tablet (Abilify) 2.5 mg (1/2 x 5 mg) PO QAM #30 tabs 07/09/24 09/28/24 Rx hydroxyzine HCl 25 mg tablet 50 mg (2 x 25 mg) PO HS #30 tabs 07/09/24 09/28/24 Rx clindamycin HCl 150 mg capsule 150 mg PO Q6H 7 days #28 caps 09/28/24 Rx Pain History Pain Intensity Pain scale - at its best (0-10): 6 Pain scale - at its worst (0-10): 10 Patient History Medical History Dysphagia Lumbar radiculopathy, right Type 2 diabetes mellitus Uncontrolled hypertension GERD (gastroesophageal reflux disease) Amputation of left great toe Poor venous access Hyponatremia Intractable neuropathic pain of left lower extremity Gastroparesis Leukocytosis Chronic pain Insomnia HTN (hypertension) PAD (peripheral artery disease) Hypertension Groin pain Foot pain Infection of left great toe due to methicillin resistant Staphylococcus aureus (MRSA) Diastolic CHF COVID-19 Osteomyelitis of great toe of left foot Opiate dependence Opiate abuse, continuous Acidosis, lactic Acute dehydration Gastroenteritis Sepsis Shortness of breath Opioid dependence Insomnia 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 No issues per anesthesia postop progress note. Anemia Hyponatremia Cellulitis Peripheral neuropathy Benzodiazepine withdrawal Right second toe ulcer Diabetes mellitus type 2, uncontrolled Hyperlipidemia Seizures Gastritis Numbness of lower extremity Hypertriglyceridemia CAD (coronary artery disease) History of tobacco use Benzodiazepine dependence Diabetic neuropathy Abdominal pain Gastroparesis Esophagitis determined by endoscopy GIB (gastrointestinal bleeding) Insulin dependent diabetes mellitus DM2 (diabetes mellitus, type 2) IDDM, A1c 07/2021-11% Surgical History History of lumbar fusion L5-S1 from 2005, [place] History of lumbar surgery History of esophagogastroduodenoscopy (EGD) Family History Mother , age 63 Myocardial infarction Father , age 68 or 69 Myocardial infarction Brother S/P CABG (coronary artery bypass graft) Sister Myocardial infarction x 3; she is 57yo Social History Smoking Status: Former smoker Tobacco Type: Cigarettes packs per day: 0.5; Second Hand Exposure: No; Do You Dip or Chew Tobacco: No; Hx Alcohol Use: No Hx Substance Use: Yes Prescribed Medications: Marijuana Last Used Substance: Unknown Last Used Substance Other:: Medical marijuana Substance Use Type Other:: Medical marijuana Preferred Language: Salvadorean Communication Ability: Effective Visual Impairment: No Limitations Hearing Ability: Normal Toll Transmission Worker Required: No Beliefs That Will Affect Care: None marital status: Current Living Situation: Spouse Current Living Situation Comment: lives at home with current occupational status: unemployed 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 Other Information That Helps Us Care for You: No other: raising a grandchild as well; lives in [place] Feels Safe at Home: Yes Safety Concerns: Feels Safe At This Time Diet: diabetic and low salt during the past year weight has: remained stable Assistive Devices: Bedside Commode, Glasses, Walker and Wheelchair Physical Exam 2 Physical Exam: General: Patient lying in exam room in no acute distress. Speech and thought process appropriate. Patient irritable, agitated and frequently swearing about her care. Cognition intact. Head: Normocephalic and atraumatic. ENT: No evidence of nasal or oral mucosal lesions. Mucous membranes are moist. Poor dentition noted. Neck: Supple without adenopathy and full range of motion. Back/spine: Loss of lumbar lordosis. Nontender over the midline. Moderately tender over the left lumbosacral region which is nonfocal. No obvious muscular spasm in the paravertebral gluteal region. Lower extremities: No evidence of allodynia, hyperpathia or hyperalgesia. Any attempted range of motion patient complains of increased pain in the groin and anterior thigh. Neurologic: Cranial nerves grossly intact. Ambulatory function not witnessed. Results (Pain Clinic) Diagnostic Review CT Findings: [facility] [place] [phone] CT Scan Report Patient: EILEEN ESCOBAR Admit Date: 10/01/24 MR#: [id number] Address1: [address] [place] [address] Acct ID:[id number] Address2: [address] Date: 1965 [facility] Zip: [place] [address] Age: 59 Location: ED Sex: F Room/Bed: Att Phy: Diagnosis: ABN TEST RESULTS Ana Maria Phy: Vince Vernon DO Service Date: 10/01/24 Fam Phy: Interpreting Phy: Wilver Powell MDAdmit Phy: Ordering Phy: Dami Madden DO cc: ~ CT ANGIOGRAPHY OF THE LEFT LOWER EXTREMITY CLINICAL HISTORY: Groin pain down to foot, hx of PAD. COMPARISON STUDY: Left lower extremity arterial Doppler ultrasound December 30, 2023. CTA with runoff July 14, 2021. CTA of the abdomen and pelvis July 01, 2024. TECHNIQUE: Helical axial images of the mid to lower abdomen, pelvis and left lower extremity were obtained during arterial phase following intravenous injection 120 cc of Optiray 320 IV. Sagittal and coronal reconstructions were viewed as well as maximal intensity projections on an independent 3-D workstation. Automated exposure control was utilized for the study. A dose lowering technique was utilized adhering to the principles of ALARA. FINDINGS: Visualized portions of the liver are unremarkable on arterial phase exam. There is no biliary ductal dilatation status post cholecystectomy. Spleen, adrenal glands and pancreas are unremarkable. There is no evidence for a bowel obstruction. The caliber and wall thickness of small and large bowel are normal. There are postoperative findings within the spine. There is no abdominal lymphadenopathy. No fluid collections are present. Postoperative findings consistent with right below-knee amputation. There is extensive plaque with multifocal stenoses within the right lower extremity vasculature. There is extensive atherosclerotic plaque within the abdominal aorta. No abdominal aortic aneurysm is present. Branch vessels are patent. There is extensive plaque within the left lower extremity vasculature. The left common iliac artery is patent. There is mild stenosis of the left external iliac artery. There is moderate stenosis of the left common femoral artery. There are moderate multifocal stenoses within the left superficial femoral artery. The left popliteal artery is patent. There is occlusion of the proximal left anterior tibial artery with distal reconstitution. The left dorsalis pedis is patent. The left peroneal artery is patent to the level of the syndesmosis. Multifocal stenoses of the left posterior tibial artery are present with occlusion and distal reconstitution. There is trace flow within the distal left posterior tibial artery. IMPRESSION: 1. Extensive atherosclerotic plaque within the left lower extremity. 2. Moderate multifocal stenoses within the left superficial femoral artery. 3. Occlusion of the proximal left anterior tibial artery which is new since CT of July 14, 2021. Distal reconstitution with patent left dorsalis pedis. 4. Occlusion of the distal left posterior tibial artery with distal reconstitution. Overall, significantly diminished flow within the left calf vessels. 5. Extensive plaque within the abdominal aorta. No aneurysm or stenosis within the abdominal aorta. Patent left common iliac artery. 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 6. Status post right below knee amputation. ACT 112: Negative or not required by law. Electronically signed by: Wilver Powell M.D. 10/01/2024 4:38 PM Dictated: 10/01/24 161 Transcribed: 10/01/24 1619 Other Findings: [facility] [place] [phone] Ultrasound Report Patient: EILEEN ESCOBAR Admit Date: 09/28/24 MR#: [id number] Address1: [address] [place] [address] Acct ID:[id number] Address2: [address] Date: 1965 [facility] Zip: [place] [address] Age: 59 Location: ED Sex: F Room/Bed: Att Phy: Diagnosis: RT LEG PAIN, POSSIBLE BONE INFECTION Ana Maria Phy: Vince Vernon DO Service Date: 09/28/24 [facility] Phy: Interpreting Phy: Wilver Powell MDAit Phy: Ordering Phy: Jadyn Saavedra PA-C cc: ~ BILATERAL LOWER EXTREMITY VENOUS DOPPLER CLINICAL HISTORY: Bilateral leg pain. Evaluate for deep venous thrombus. COMPARISON STUDY: Left lower extremity venous Doppler ultrasound March 25, 2024. Right lower extremity venous Doppler ultrasound May 18, 2023. TECHNIQUE: Sonography of the deep venous system of the bilateral lower extremities was performed. Compression and augmentation were evaluated. FINDINGS: The bilateral common femoral, superficial femoral and popliteal veins were compressible. Augmentation was normal. Flow was shown within the left calf vessels. There is a right below-knee amputation. IMPRESSION: No evidence of deep venous thrombus within the bilateral lower extremities. ACT 112: Negative or not required by law. Electronically signed by: Wilver Powell M.D. 09/28/2024 8:20 AM Dictated: 09/28/24 0819 Transcribed: 09/28/24 081 Previous Records Review Previous Records: personally reviewed by me
--- NOTE | 2024-10-02 16:02 | Electrocardiogram Report ---
Test Reason : Blood Pressure : */* mmHG Vent. Rate : 87 BPM Atrial Rate : 87 BPM P-R Int : 148 ms QRS Dur : 84 ms QT Int : 362 ms P-R-T Axes : 68 72 62 degrees QTcB Int : 435 ms Poor data quality, interpretation may be adversely affected Normal sinus rhythm Confirmed by Harvinder Guerra ([id number]) on 10/02/2024 4:01:52 PM Referred By: Vince Vernon Confirmed By: Harvinder Guerra
--- NOTE | 2024-10-02 16:17 | Ultrasound Report ---
Clinical history: Left foot pain. 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 A right NATHAN is therefore not possible The left NATHAN is diminished at 0.82. Blood flow could not be detected within the left toes Impression: 1. Diminished left NATHAN at 0.82. This is indicative of mild to moderate severity peripheral arterial disease 2. Lack of detectable blood flow within the left toes, which could be due to distal arterial occlusion Electronically signed by Jose Jones 10-02-2024 4:17 PM
--- NOTE | 2024-10-02 23:00 | Hospitalist Progress Note ---
Date of Service October 02, 2024 Assessment & Plan (1) Chronic pain: Plan: Her pain is similar to what has been described in the past (most notably during February admission 2023) in her left groin and radiating down her left leg. This has been evaluated by vascular, ortho spine, orthopedics, OBGYN, surgery and pain management previously. She has a significant history of pain out of proportion to her clinical findings which a significant amount of the time no pathology is found. She usually requests Dilaudid as an inpatient with ever escalating doses and frequency which has essentially led us to this point where she is chronically reliant on opiates to maintain the status quo and she has nothing to help when the pain is worse than usual. Possible her current pain is exacerbated by COVID as this can cause generalized aches but I do not think this warrants starting IV Dilaudid. The pain is not consistent with ischemia, she has been seen by vascular medicine Dr Lin in December 2023 for similar pain and not suspected to be due to ischemia and she has good dorsalis pedis pulse on palpation. Her left foot is cool but with good capillary refill. I do not feel there is any acute pathology at this time and the goal is to get her chronic pain under control with palliative care - ER provider discussed with palliative care and recommended against IV Dilaudid (presumably unless any acute pathology was found) therefore will avoid this overnight. Can give acetaminophen and Toradol in addition to her usual oxycodone pain. I see no outpatient appointments with pain management following the ilioinguinal nerve block, and per hospitalist notes she did have some relief with the ilioinguinal block therefore will additionally consult pain management to consider repeat of this procedure. Continue Lyrica and duloxetine for neuropathic pain. On 10/02 Patient was hypotensive after HOSE BUILDER drip was started. HOSE BUILDER drip was stopped. IVF bolus was ordered Blood pressure fluctuating bettween 70s and 90s systolic however patient is now more awake and mentating. WIll hold narcan. (2) SARS-CoV-2 positive: Plan: Test performed in the ER. Patient denies any symptoms therefore not treatment will be given. Isolation precautions. Plan Peripheral artery disease - continue aspirin, clopidogrel HTN - continue clonidine, hydralazine, lisinopril VTE Prophylaxis - Lovenox 40mg SQ daily Diet - regular Disposition - admit to med/surg Admission and Anticipated Discharge Date Admission Date: October 01, 2024 Subjective 59 yo female reports no new symptoms. She continues to have pain. I was later called into the room due to patient being hypotensive, blood pressure in the 70's Physical Exam Constitutional: well developed; + not well nourished Respiratory: normal respiratory effort, lungs clear to auscultation Cardiovascular: Rate/Rhythm: regular rate and regular rhythm Vessels: dorsalis pedis pulses present Extremities: normal capillary refill; no edema Gastrointestinal (Abdomen): normal bowel sounds, soft, nontender, no hepatosplenomegaly Musculoskeletal: ecchymosis over right patella Psychiatric: Orientation: alert Affect: + anxious affect and + tearful affect Mood: + anxious mood Results & Data Results & Data Vital Signs (Past 12 Hours) Vital Signs Temp Pulse Resp BP BP Pulse Ox O2 Del Method 10/02/24 21:51 36.6 C 70 16 144/68 H 95 Nasal Cannula 10/02/24 20:35 77 18 10/02/24 19:08 36.7 C 61 15 130/70 99 Room Air 10/02/24 16:42 36.7 C 60 16 105/63 98 Nasal Cannula 10/02/24 16:06 Room Air 10/02/24 11:57 65 12 76/46 L 98 Nasal Cannula 10/02/24 11:07 65 12 59/37 L 100 Nasal Cannula O2 Flow Rate 10/02/24 21:51 4 10/02/24 20:35 10/02/24 19:08 10/02/24 16:42 2 10/02/24 16:06 10/02/24 11:57 2 10/02/24 11:07 2 PG Care Time/CCT Total # of Minutes Spent Total Time Spent with Patient: Total time spent is greater than 50% in coordination of care (as documented) at patient's floor/unit and/or counseling patient: Critical Care Time: Yes Total Critical Care Time: 35 35 minutes of critical care time spent in the management clinical coronation care of this patient today this critical care time spent independent of and in addition to any other time or critical care time any other practitioner today's date. Coding Level of Care Code 98080 SUB INP/OBS CARE 3/50MIN (25 - SIGNIFICANT, SEPARATELY IDENTIFIABLE ) Diagnoses Chronic pain G89.29 Chronic pain type: other chronic pain SARS-CoV-2 positive U07.1 Additional Codes Critical Care Time - Critical Care Time: Yes ([id number]) (1) Chronic pain Chronic pain type: other chronic pain Qualified Code(s): G89.29 - Other chronic pain
[2024-10-03 07:13] LABS: Hematocrit (blood only) 38.2 % (37.0-47.0); Hemoglobin 12.2 g/dl (12.0-16.0); Mean Corpuscular Hemoglobin 23.6 pg (25.0-34.0); Mean Corpuscular Hgb Conc 31.9 g/dL (32.0-36.0); Mean Platelet Volume 10.3 fL (9.4-12.4); Platelet Count 247 K/uL (130-400); RDW Coefficient of Variation 16.8 % (11.5-14.5); RDW Standard Deviation 44.8 fL (36.4-46.3); Red Blood Count 5.16 M/uL (4.20-5.40); White Blood Count 10.18 K/ul (4.8-10.8)
[2024-10-03 07:30] LABS: Anion Gap 9 (3-11); BUN Creatinine Ratio 34.9 (10-20); Blood Urea Nitrogen 15 mg/dl (6-23); C Reactive Protein < 0.50 mg/dl (0-0.5); Calcium 9.1 mg/dl (8.6-10.3); Carbon Dioxide 26 mmol/L (21-32); Chloride 100 mmol/L (98-107); Glucose 121 mg/dl (70-99(Fasting)); Potassium 4.3 mmol/L (3.5-5.1); Sodium 135 mmol/L (136-145)
[2024-10-03] MEDS: METOPROLOL TARTRATE 1 MG/ML VIAL IV STA (10:45)
[2024-10-03] MEDS: cloNIDine HCL 0.3 MG/24 HR TRANSDERM SYS TD SCH (11:19)
[2024-10-03] MEDS: PROCHLORPERAZINE MALEATE 5 MG TAB PO PRN (12:50)
--- NOTE | 2024-10-03 13:02 | Palliative Care Progress Note ---
Date of Service October 03, 2024 Assessment & Plan (1) Palliative care by specialist: Plan: Palliative care continues to follow for pain/symptom mgmt and ACP. (2) Chronic pain: Plan: pt came to ED for intractable severe pain in LLE, groin, and L flank: Home regimen Oxy IR 20mg approx 8-10 daily, no relief Prior methadone was stopped by pt at low dose because "it didn't help at all" She has a long hx of stopping meds when she feels they do not help and then she will also delay her own care, to her own detriment She has a prior substance abuse history in distant past and is opioid tolerant +manipulative behaviors, splitting teams At home pt was using oral oxycodone 160 - 200mg daily without relief 200mg oxy = 600mg oral MS equivalents (OMEs) 600mg PO MS = 200mg IV MS = dilaudid 40mg IV daily equivalent Continue dilaudid XEROX MACHINE ASSEMBLER 0.1 mg XEROX MACHINE ASSEMBLER q20min with 0.2mg clinician bolus q1h PRN Pt states pain well managed today, no changes at this time. (3) Nausea & vomiting: Plan: Pt shared she has constant nausea and emesis with any PO intake. She is also having occasional liquid stool Change Zofran to 4mg IVP q6h scheduled Add Compazine 5mg PO q6h scheduled Zofran and compazine administration should be off set so that an antiemetic is given every three hours, (ie. Zofran 3-9-3-9 AND compazine 6-12-6-12) (4) Therapeutic opioid-induced constipation (OIC): Plan: not currently an issue, pt c/o liquid stool Plan As above; plan discussed with attending Dr Dickerson and BSRN. This patient will benefit from clear consistent communication across disciplines. it is important for all providers to maintain a unified approach, delivering tanner information in a consistent and direct manner. Attempts to assign blame or introduce misconceptions should be met with a neutral and factual response. A collaborative, non-confrontational approach will help foster a therapeutic relationship, and it is essential to avoid blaming the patient for her challenges. This approach will improve communication and support more effective engagement with her care. Admission and Anticipated Discharge Date Admission Date: October 01, 2024 Subjective assessed pt at bedside. She was awake and alert and pleasant today, she shared that pain is well managed but she tries not to use the XEROX MACHINE ASSEMBLER for fear that she "will stop breathing". She does c/o constant nausea and no appetite. She did have a large amount of liquid emesis while i was assessing her. Review of Systems Review of Systems: All systems reviewed & are unremarkable except as noted in Subjective Physical Exam Constitutional: well developed, + ill appearing, + thin and + frail appearing Respiratory: normal respiratory effort, lungs clear to auscultation Cardiovascular: Rate/Rhythm: regular rate and regular rhythm Vessels: dorsalis pedis pulses present Extremities: normal capillary refill; no edema Gastrointestinal (Abdomen): normal bowel sounds, soft, nontender, no hepatosplenomegaly Musculoskeletal: Right BKA, otherwise GONZALES with strength and purpose Neurologic: PERRL, EOMI, accommodation nl, no face palsy, no dysarthria Psychiatric: Orientation: alert and oriented x 3 Affect: + anxious affect Mood: + anxious mood Results & Data Vital Signs (Past 12 Hours) Vital Signs Temp Pulse Pulse Resp BP BP BP 10/03/24 11:37 10/03/24 11:20 89 214/80 H 10/03/24 10:45 218/86 H 10/03/24 08:19 36.6 C 91 H 20 187/76 H 10/03/24 03:25 153/62 H 10/03/24 02:09 36.7 C 74 16 176/68 H Pulse Ox O2 Del Method O2 Flow Rate 10/03/24 11:37 Nasal Cannula 2 10/03/24 11:20 10/03/24 10:45 10/03/24 08:19 96 Nasal Cannula 2 10/03/24 03:25 10/03/24 02:09 99 Nasal Cannula 4 Laboratory Results Abnormal lab results 10/03/24 10/03/24 Range/Units 05:34 06:20 MCV 74.0 L (80.0-100.0) fL MCH 23.6 L (25.0-34.0) pg MCHC 31.9 L (32.0-36.0) g/dL RDW Coeff of Maria Del Carmen 16.8 H (11.5-14.5) % Sodium 135 L (136-145) mmol/L Creatinine 0.43 L D (0.6-1.2) mg/dl BUN/Creatinine Ratio 34.9 H (10-20) Glucose 121 H (70-99(Fasting)) mg/dl POC Glucose 115 H (70-99) mg/dl Diagnostic Findings Lower Extremity CTA 10/01/24 14:21 CT ANGIOGRAPHY OF THE LEFT LOWER EXTREMITY CLINICAL HISTORY: Groin pain down to foot, hx of PAD. COMPARISON STUDY: Left lower extremity arterial Doppler ultrasound December 30, 2023. CTA with runoff July 14, 2021. CTA of the abdomen and pelvis July 01, 2024. TECHNIQUE: Helical axial images of the mid to lower abdomen, pelvis and left lower extremity were obtained during arterial phase following intravenous injection 120 cc of Optiray 320 IV. Sagittal and coronal reconstructions were viewed as well as maximal intensity projections on an independent 3-D workstation. Automated exposure control was utilized for the study. A dose lowering technique was utilized adhering to the principles of ALARA. FINDINGS: Visualized portions of the liver are unremarkable on arterial phase exam. There is no biliary ductal dilatation status post cholecystectomy. Spleen, adrenal glands and pancreas are unremarkable. There is no evidence for a bowel obstruction. The caliber and wall thickness of small and large bowel are normal. There are postoperative findings within the spine. There is no abdominal lymphadenopathy. No fluid collections are present. Postoperative findings consistent with right below-knee amputation. There is extensive plaque with multifocal stenoses within the right lower extremity vasculature. There is extensive atherosclerotic plaque within the abdominal aorta. No abdominal aortic aneurysm is present. Branch vessels are patent. There is extensive plaque within the left lower extremity vasculature. The left common iliac artery is patent. There is mild stenosis of the left external iliac artery. There is moderate stenosis of the left common femoral artery. There are moderate multifocal stenoses within the left superficial femoral artery. The left popliteal artery is patent. There is occlusion of the proximal left anterior tibial artery with distal reconstitution. The left dorsalis pedis is patent. The left peroneal artery is patent to the level of the syndesmosis. Multifocal stenoses of the left posterior tibial artery are present with occlusion and distal reconstitution. There is trace flow within the distal left posterior tibial artery. IMPRESSION: 1. Extensive atherosclerotic plaque within the left lower extremity. 2. Moderate multifocal stenoses within the left superficial femoral artery. 3. Occlusion of the proximal left anterior tibial artery which is new since CT of July 14, 2021. Distal reconstitution with patent left dorsalis pedis. 4. Occlusion of the distal left posterior tibial artery with distal reconstitution. Overall, significantly diminished flow within the left calf vessels. 5. Extensive plaque within the abdominal aorta. No aneurysm or stenosis within the abdominal aorta. Patent left common iliac artery. 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 6. Status post right below knee amputation. ACT 112: Negative or not required by law. Electronically signed by: Wilver Powell M.D. 10/01/2024 4:38 PM Ankle Brachial Index 10/02/24 13:56 Clinical history: Left foot pain. 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 A right NATHAN is therefore not possible The left NATHAN is diminished at 0.82. Blood flow could not be detected within the left toes Impression: 1. Diminished left NATHAN at 0.82. This is indicative of mild to moderate severity peripheral arterial disease 2. Lack of detectable blood flow within the left toes, which could be due to distal arterial occlusion Electronically signed by Jose Jones 10-02-2024 4:17 PM Medications Administered Current Inpatient Medications Acetaminophen (Acetaminophen 500 Mg Tab) 1,000 mg PO TID [facility] Stop: 11/01/24 08:59 Last Admin: 10/03/24 21:11 Dose: Not Given Alprazolam (Alprazolam 0.5 Mg Tablet) 1 mg PO TID PRN PRN Reason: Anxiety Stop: 10/31/24 19:57 Last Admin: 10/03/24 21:14 Dose: 1 mg Aripiprazole (Aripiprazole 5 Mg Tab) 2.5 mg PO QAM [facility] Stop: 11/01/24 08:59 Last Admin: 10/03/24 08:42 Dose: 2.5 mg Aspirin (Aspirin 81 Mg Ectab) 81 mg PO DAILY [facility] Stop: 11/01/24 08:59 Last Admin: 10/03/24 08:40 Dose: 81 mg Clonidine HCl (Clonidine Hcl 0.1 Mg Tab) 0.1 mg PO TID [facility] Stop: 10/31/24 20:59 Last Admin: 10/03/24 08:44 Dose: Not Given Clonidine HCl (Clonidine Hcl 0.3 Mg/24 Hr Transderm Sys) 1 patch TD Q7D [facility] Stop: 11/02/24 10:29 Last Admin: 10/03/24 11:19 Dose: 1 patch Clopidogrel Bisulfate (Clopidogrel Bisulfate 75 Mg Tab) 75 mg PO DAILY [facility] Stop: 11/01/24 08:59 Last Admin: 10/03/24 08:44 Dose: 75 mg Docusate Sodium (Docusate Sodium 100 Mg Cap) 100 mg PO BID [facility] Stop: 10/31/24 20:59 Last Admin: 10/03/24 21:12 Dose: Not Given Duloxetine HCl (Duloxetine Hcl 60 Mg Cap) 60 mg PO DAILY [facility] Stop: 11/01/24 08:59 Last Admin: 10/03/24 08:44 Dose: 60 mg Enoxaparin Sodium (Enoxaparin Inj 40 Mg/0.4 Ml Syr) 40 mg SQ QAM [facility] Stop: 11/01/24 08:59 Last Admin: 10/03/24 08:38 Dose: 40 mg Hydralazine HCl (Hydralazine Hcl 25 Mg Tab) 25 mg PO TID [facility] Stop: 10/31/24 20:59 Last Admin: 10/03/24 21:14 Dose: 25 mg Hydromorphone HCl (Hydromorphone Senior Net Software Developer 30 Mg/30 Ml) 30 mg IV PRN PRN; Protocol PRN Reason: XEROX MACHINE ASSEMBLER Pain Titration Stop: 10/16/24 08:56 Last Admin: 10/02/24 12:21 Dose: 30 mg Hydroxyzine HCl (Hydroxyzine Hcl 25 Mg Tab) 50 mg PO HS [facility] Stop: 10/31/24 20:59 Last Admin: 10/03/24 21:15 Dose: 50 mg Insulin Glargine (Lantus Per Unit Charge) 10 units SC HS [facility] Stop: 10/31/24 20:59 Last Admin: 10/03/24 21:16 Dose: Not Given Ketorolac Tromethamine (Ketorolac Tromethamine 15 Mg/Ml Vial) 15 mg IV Q6H PRN PRN Reason: Pain Stop: 10/07/24 00:31 Last Admin: 10/02/24 04:23 Dose: 15 mg Lidocaine (Lidocaine 5% 1 Patch) 1 patch TD QAM [facility] Stop: 10/31/24 19:57 Last Admin: 10/03/24 08:39 Dose: 1 patch Lisinopril (Lisinopril 20 Mg Tab) 20 mg PO DAILY [facility] Stop: 11/01/24 08:59 Last Admin: 10/03/24 08:45 Dose: 20 mg Metoprolol Succinate (Metoprolol Succ 50mg Ext Rel Tab) 50 mg PO QAM [facility] Stop: 11/01/24 08:59 Last Admin: 10/03/24 08:45 Dose: Not Given Miscellaneous (Remove Lidoderm Patch) 1 each N/A DAILY@2100 [facility] Stop: 10/31/24 20:59 Last Admin: 10/03/24 21:12 Dose: 1 each Miscellaneous (Check Clonidine Patch Placement) 1 each N/A QS [facility] Stop: 11/02/24 15:59 Last Admin: 10/04/24 00:56 Dose: 1 each Miscellaneous (Remove Clonidine Patch) 1 each N/A CQWK [facility] Stop: 11/02/24 10:29 Last Admin: 10/03/24 11:22 Dose: 1 each Naloxone HCl (Naloxone Hcl 0.4 Mg/1 Ml Vial/Carp) 0.1 mg IV Q5M PRN; Protocol PRN Reason: Oversedation/Resp Depression Stop: 10/16/24 08:56 Ondansetron HCl (Ondansetron Inj 2 Mg/Ml 2 Ml Vial) 4 mg IV Q6H [facility] Stop: 11/02/24 12:59 Last Admin: 10/03/24 21:14 Dose: 4 mg Polyethylene Glycol (Polyethylene (Miralax) 17 Gm Pack) 17 gm PO BID [facility] Stop: 10/31/24 20:59 Last Admin: 10/03/24 21:15 Dose: Not Given Pregabalin (Pregabalin 100 Mg Cap) 100 mg PO TID [facility] Stop: 10/31/24 20:59 Last Admin: 10/03/24 21:24 Dose: 100 mg Prochlorperazine (Prochlorperazine Maleate 5 Mg Tab) 5 mg PO Q6H [facility] Stop: 11/02/24 15:59 Last Admin: 10/03/24 21:16 Dose: 5 mg Ropinirole HCl (Ropinirole Hcl 2 Mg Tablet) 8 mg PO HS [facility] Stop: 10/31/24 20:59 Last Admin: 10/03/24 21:13 Dose: 8 mg Sennosides (Senna 8.6 Mg Tab) 17.2 mg PO BID PRN PRN Reason: constipation Stop: 10/31/24 19:57 Sucralfate (Sucralfate 1 Gm/10 Ml Udc) 1 gm PO ACHS [facility] Stop: 10/31/24 20:59 Last Admin: 10/03/24 21:15 Dose: 1 gm PG Care Time/CCT Total # of Minutes Spent Total Time Spent with Patient: Total time spent is greater than 50% in coordination of care (as documented) at patient's floor/unit and/or counseling patient: C[place] [address] SUB INP/OBS CARE 3/50MIN Patient Type Established History Detailed Exam Detailed Medical Decision Making High Complexity Diagnoses Palliative care by specialist Z51.5 Chronic pain syndrome G89.4 Chronic pain type: chronic pain syndrome Nausea & vomiting R11.2 Vomiting type: unspecified Therapeutic opioid-induced constipation (OIC) K59.03; T40.2X5A (2) Chronic pain Chronic pain type: chronic pain syndrome Qualified Code(s): G89.4 - Chronic pain syndrome (3) Nausea & vomiting Vomiting type: unspecified Qualified Code(s): R11.2 - Nausea with vomiting, u nspecified
--- NOTE | 2024-10-03 14:12 | Vascular Medicine Consultation ---
Date of Consultation October 03, 2024 Assessment & Plan (1) PAD (peripheral artery disease): 2. Chronic pain/lumbar spondylolisthesis 3.Insulin-dependent type 2 diabetes 4. Nonobstructive coronary disease 5. History of tobacco use Reviewed patient's recent CTA. Has only mild to moderate iliac/CARBIDE OPERATOR/SFA disease. No PAD to explain constant, severe, rest hip/groin pain. Does appear to have increased tibial artery disease on recent CTA but left NATHAN only mildly reduced. Her left foot appears well-perfused with intact pedal pulses and capillary refill. Left foot pain is not secondary to critical limb ischemia. No benefit from repeat angiogram, revascularization. No need for additional vascular testing at this time. Continue ASCVD risk factor modification including DAPT with aspirin, clopidogrel. Can follow-up with vascular medicine as needed. History of Present Illness Attending Physician: Ricardo Hernadez History of Present Illness Ms. Witt is a very pleasant 59-year-old woman seen today in hospital for chronic pain in the setting of PAD. Has been suffering with chronic pain involving her abdomen, left hip/groin area for months with numerous hospitalizations, numerous consultations including pain management, spine, orthopedics, GI and palliative medicine. Last seen by me 12/2023. At that time arterial duplex showed moderate CARBIDE OPERATOR stenosis (PSV 235), biphasic waveforms through SFA/popliteal with diminished waveforms and peroneal, PLATFORM MAN. Left PT NATHAN 0.71, DP NATHAN 1.11. On current admission underwent repeat CTA which showed mild left EIA, moderate left CARBIDE OPERATOR and moderate SFA disease. Occluded KERLINE/PLATFORM MAN with distal reconstitution. Repeat NATHAN DP 0.63, PT 0.82 Past medical history: Type 2 diabetes complicated by peripheral neuropathy, chronic pain syndrome, spinal stenosis, hypertension, dyslipidemia, nonobstructive coronary artery disease. Prior vascular history: Known to me from prior hospitalizations. 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 Early in treatment course underwent angiogram 08/15/2021 on which mild to moderate SFA, KERLINE disease on right. Seen 03/2022 in the setting of left diabetic foot ulcer. Repeat angiogram revealed mild diffuse SFA disease and severe KERLINE disease treated with angioplasty with JERILYN. Long wound course complicated by osteomyelitis and has since undergone amputation of first through third digits. Per patient report had angiogram and angioplasty to left lower extremity arterial system at [facility] in 08/2023 due to pain. Patient states no improvement following angioplasty. Allergies Allergy/AdvReac Type Severity Reaction Status Date / Time morphine Allergy Severe blisters Verified 02/10/24 22:40 in mouth Sulfa (Sulfonamide Allergy Severe rash/swelli Verified 02/10/24 22:40 Antibiotics) ng amoxicillin [From Augmentin] Allergy Intermediate itching/power Verified 02/10/24 22:40 h ceftriaxone [From Rocephin] Allergy Intermediate Hives Verified 02/10/24 22:40 clavulanic acid Allergy Intermediate itching/power Verified 02/10/24 22:40 [From Augmentin] h erythromycin base Allergy Intermediate Hives Verified 02/10/24 22:40 vancomycin Allergy Intermediate YULIYA Verified 02/10/24 22:40 SYNDROME---CAN TAKE IF VERY SLOW DRIP. adhesive AdvReac Intermediate DERMABOND Verified 02/10/24 22:40 excoriates skin gabapentin AdvReac Intermediate Nausea Verified 02/10/24 22:40 iron [From Venofer] AdvReac Intermediate Hypertensio Verified 02/10/24 22:40 n Home Medications Medication Instructions Recorded Confirmed Type insulin glargine 100 unit/mL (3 10 unit subcut HS 10/17/22 09/28/24 History mL) subcutaneous pen (Lantus Solostar U-100 Insulin) alprazolam 1 mg tablet 1 mg PO TID PRN Anxiety 05/08/23 10/01/24 History docusate sodium 100 mg capsule 100 mg PO BID 05/08/23 09/28/24 History metoprolol succinate 50 mg 50 mg PO QAM 05/08/23 09/28/24 History tablet,extended release 24 hr (Toprol XL) clopidogrel 75 mg tablet (Plavix) 75 mg PO DAILY #30 tabs 05/10/23 09/28/24 Rx prochlorperazine maleate 5 mg 5 mg PO TID PRN Nausea 06/13/23 09/28/24 History tablet aspirin 81 mg tablet,delayed 81 mg PO DAILY 09/19/23 09/28/24 History release hydralazine 25 mg tablet 25 mg PO TID 09/19/23 09/28/24 History lidocaine 5 % topical patch 1 patch transdermal QAM #14 ea 12/13/23 09/28/24 Rx clonidine HCl 0.1 mg tablet 0.1 mg PO Q8H #90 tabs 04/03/24 09/28/24 Rx cyanocobalamin (vitamin B-12) 500 1,000 mcg (2 x 500 mcg) PO QAM #30 04/03/24 09/28/24 Rx mcg tablet tabs naloxone 4 mg/actuation nasal spray 4 mg intranasal ONCE PRN opioid 04/03/24 09/28/24 Rx overdose #2 ea polyethylene glycol 3350 17 gram 17 g PO BID #0 ea 04/03/24 09/28/24 Rx oral powder packet (Miralax) pregabalin 100 mg capsule (Lyrica) 100 mg PO TID #90 caps 04/03/24 09/28/24 Rx sennosides 8.6 mg tablet (Senokot) 17.2 mg (2 x 8.6 mg) PO BID PRN 04/03/24 09/28/24 Rx constipation #60 tabs duloxetine 60 mg capsule,delayed 60 mg PO DAILY 06/02/24 09/28/24 History release insulin aspart 5 unit subcut TIDM 06/02/24 09/28/24 History (niacinamide)(U-100) 100 unit/mL(3 mL) subcutaneous pen (Fiasp FlexTouch U-100 Insulin) lisinopril 20 mg tablet 20 mg PO DAILY 06/02/24 09/28/24 History ropinirole 4 mg tablet 8 mg PO HS 06/02/24 09/28/24 History sucralfate 100 mg/mL oral 1 g (10 mL) PO ACHS #200 mL 06/05/24 09/28/24 Rx suspension (Carafate) doxycycline hyclate 100 mg capsule 100 mg PO BID #14 caps 06/23/24 09/28/24 Rx aripiprazole 5 mg tablet (Abilify) 2.5 mg (1/2 x 5 mg) PO QAM #30 tabs 07/09/24 09/28/24 Rx hydroxyzine HCl 25 mg tablet 50 mg (2 x 25 mg) PO HS #30 tabs 07/09/24 09/28/24 Rx clindamycin HCl 150 mg capsule 150 mg PO Q6H 7 days #28 caps 09/28/24 Rx Patient History Medical History Dysphagia Lumbar radiculopathy, right Type 2 diabetes mellitus Uncontrolled hypertension GERD (gastroesophageal reflux disease) Amputation of left great toe Poor venous access Hyponatremia Intractable neuropathic pain of left lower extremity Gastroparesis Leukocytosis Chronic pain Insomnia HTN (hypertension) PAD (peripheral artery disease) Hypertension Groin pain Foot pain Infection of left great toe due to methicillin resistant Staphylococcus aureus (MRSA) Diastolic CHF COVID-19 Osteomyelitis of great toe of left foot Opiate dependence Opiate abuse, continuous Acidosis, lactic Acute dehydration Gastroenteritis Sepsis Shortness of breath Opioid dependence Insomnia 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 No issues per anesthesia postop progress note. Anemia Hyponatremia Cellulitis Peripheral neuropathy Benzodiazepine withdrawal Right second toe ulcer Diabetes mellitus type 2, uncontrolled Hyperlipidemia Seizures Gastritis Numbness of lower extremity Hypertriglyceridemia CAD (coronary artery disease) History of tobacco use Benzodiazepine dependence Diabetic neuropathy Abdominal pain Gastroparesis Esophagitis determined by endoscopy GIB (gastrointestinal bleeding) Insulin dependent diabetes mellitus DM2 (diabetes mellitus, type 2) IDDM, A1c 07/2021-11% Surgical History History of lumbar fusion L5-S1 from 2004, [place] History of lumbar surgery History of esophagogastroduodenoscopy (EGD) Family History Mother , age 63 Myocardial infarction Father , age 68 or 69 Myocardial infarction Brother S/P CABG (coronary artery bypass graft) Sister Myocardial infarction x 3; she is 57yo Social History Smoking Status: Former smoker Tobacco Type: Cigarettes packs per day: 0.5; Second Hand Exposure: No; Do You Dip or Chew Tobacco: No; Hx Alcohol Use: No Hx Substance Use: Yes Prescribed Medications: Marijuana Last Used Substance: Unknown Last Used Substance Other:: Medical marijuana Substance Use Type Other:: Medical marijuana Preferred Language: Guamanian Communication Ability: Effective Visual Impairment: No Limitations Hearing Ability: Normal Industrial Maintenance Technician Required: No Beliefs That Will Affect Care: None marital status: Current Living Situation: Spouse Current Living Situation Comment: lives at home with current occupational status: unemployed 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 Other Information That Helps Us Care for You: No other: raising a grandchild as well; lives in [place] Feels Safe at Home: Yes Safety Concerns: Feels Safe At This Time Diet: diabetic and low salt during the past year weight has: remained stable Assistive Devices: Bedside Commode, Glasses, Walker and Wheelchair Review of Systems Review of Systems: All systems reviewed & are unremarkable except as noted in HPI & below Physical Exam Physical Exam: General: No acute distress, comfortable HEENT: Head is normal. Sclerae anicteric. Lungs: Clear to auscultation bilaterally without rales, rhonchi or wheezes. Cardiac: Regular rate and rhythm. S1-S2 normal. No appreciable murmur, gallop or rub. Extremities/vascular: --Well perfused. No peripheral edema. --Radial 2+ bilaterally --Post RT BKA - Surgical site healed. R T knee tender warm. --Femoral 1+ bilaterally-- Tenderness at LT groin/hip --Popliteal LT diminished --LT PT 2+, DP diminished. Prior amputa tions sites well healed. Normal cap refill in 4th/5th digits. Results & Data Vital Signs (Past 12 Hours) Vital Signs Temp Pulse Pulse Resp BP BP BP 10/03/24 11:37 10/03/24 11:20 89 214/80 H 10/03/24 10:45 218/86 H 10/03/24 08:19 97.9 F 91 H 20 187/76 H 10/03/24 03:25 153/62 H 10/03/24 02:09 98.1 F 74 16 176/68 H Pulse Ox O2 Del Method O2 Flow Rate 10/03/24 11:37 Nasal Cannula 2 10/03/24 11:20 10/03/24 10:45 10/03/24 08:19 96 Nasal Cannula 2 10/03/24 03:25 10/03/24 02:09 99 Nasal Cannula 4 PG Care Time/CCT Total # of Minutes Spent Total Time Spent with Patient: Total time spent is greater than 50% in coordination of care (as documented) at patient's floor/unit and/or counseling patient: Coding Level of Care Code 59083 OFFICE CONSULT LVL Diagnoses PAD (peripheral artery disease) I73.9
[2024-10-03] MEDS: ONDANSETRON INJ 2 MG/ML 2 ML VIAL IV SCH (14:42)
[2024-10-03] MEDS: CHECK CLONIDINE PATCH PLACEMENT SCH (17:02)
[2024-10-03] MEDS: PROCHLORPERAZINE MALEATE 5 MG TAB PO SCH (17:02)
--- NOTE | 2024-10-03 20:51 | Communication Note ---
Date of Service: October 03, 2024 Nurse, Deena Welch stated: "Good evening. [id number] Mariana Witt is on a Dilaudid brakes inspector for pain. Per vascular's note, "Has only mild to moderate iliac/BLEACH PLANT OPERATOR/SFA disease. No PAD to explain constant, severe, rest hip/groin pain". Patient is manipulative and knows that if she holds her breath, the NAPRAPATH will alarm and we have to go into her room. She did this all last evening and throughout the day today. When she is asleep, it does not alarm. Is it possible to have the NAPRAPATH discontinued and give her prn Dilaudid? ty" I was hoping someone on the daytime care team can go over the device with the patient; the nurse seemed to have concerns that maybe the device wasn't calibrated right eithr. Also, since I assumed this pain regimen was arrived at after discussion with the patient, I will not be changing pain meds tonight. This can be discussed between pt, daytime hospitalist, and daytime nurses.
--- NOTE | 2024-10-03 23:44 | Hospitalist Progress Note ---
Date of Service October 03, 2024 Assessment & Plan (1) Chronic pain: Plan: Her pain is similar to what has been described in the past (most notably during February admission 2023) in her left groin and radiating down her left leg. This has been evaluated by vascular, ortho spine, orthopedics, OBGYN, surgery and pain management previously. She has a significant history of pain out of proportion to her clinical findings which a significant amount of the time no pathology is found. She usually requests Dilaudid as an inpatient with ever escalating doses and frequency which has essentially led us to this point where she is chronically reliant on opiates to maintain the status quo and she has nothing to help when the pain is worse than usual. Possible her current pain is exacerbated by COVID as this can cause generalized aches but I do not think this warrants starting IV Dilaudid. The pain is not consistent with ischemia, she has been seen by vascular medicine Dr Lin in December 2023 for similar pain and not suspected to be due to ischemia and she has good dorsalis pedis pulse on palpation. Her left foot is cool but with good capillary refill. I do not feel there is any acute pathology at this time and the goal is to get her chronic pain under control with palliative care - ER provider discussed with palliative care and recommended against IV Dilaudid (presumably unless any acute pathology was found) therefore will avoid this overnight. Can give acetaminophen and Toradol in addition to her usual oxycodone pain. I see no outpatient appointments with pain management following the ilioinguinal nerve block, and per hospitalist notes she did have some relief with the ilioinguinal block therefore will additionally consult pain management to consider repeat of this procedure. Continue Lyrica and duloxetine for neuropathic pain. On . Pain appears to be controlled. continue current pain regimen (2) SARS-CoV-2 positive: Plan: Test performed in the ER. Patient denies any symptoms therefore not treatment will be given. Isolation precautions. Plan Peripheral artery disease - continue aspirin, clopidogrel HTN - continue clonidine, hydralazine, lisinopril VTE Prophylaxis - Lovenox 40mg SQ daily Diet - regular Disposition - admit to med/surg Admission and Anticipated Discharge Date Admission Date: October 01, 2024 Subjective 59 yo female reports no new complaints. She is resting comfortably. Physical Exam Constitutional: well developed; + not well nourished Respiratory: normal respiratory effort, lungs clear to auscultation Cardiovascular: Rate/Rhythm: regular rate and regular rhythm Vessels: dorsalis pedis pulses present Extremities: normal capillary refill; no edema Gastrointestinal (Abdomen): normal bowel sounds, soft, nontender, no hepatos plenomegaly Psychiatric: Orientation: alert Affect: + anxious affect and + tearful affect Mood: + anxious mood Results & Data Results & Data Vital Signs (Past 12 Hours) Vital Signs Pulse BP 10/03/24 16:42 177/86 H 10/03/24 14:54 92 H 224/87 H PG Care Time/CCT Total # of Minutes Spent Total Time Spent with Patient: Total time spent is greater than 50% in coordination of care (as documented) at patient's floor/unit and/or counseling patient: Coding Level of Care Code 93135 SUB INP/OBS CARE 2/35MIN Diagnoses Chronic pain G89.29 Chronic pain type: other chronic pain SARS-CoV-2 positive U07.1 (1) Chronic pain Chronic pain type: other chronic pain Qualified Code(s): G89.29 - Other chronic pain
[2024-10-04 07:10] LABS: Hematocrit (blood only) 43.4 % (37.0-47.0); Hemoglobin 14.3 g/dl (12.0-16.0); Mean Corpuscular Hemoglobin 24.1 pg (25.0-34.0); Mean Corpuscular Hgb Conc 32.9 g/dL (32.0-36.0); Mean Corpuscular Volume 73.1 fL (80.0-100.0); Mean Platelet Volume 10.2 fL (9.4-12.4); Platelet Count 363 K/uL (130-400); RDW Coefficient of Variation 17.2 % (11.5-14.5); RDW Standard Deviation 43.7 fL (36.4-46.3); Red Blood Count 5.94 M/uL (4.20-5.40); White Blood Count 12.38 K/ul (4.8-10.8)
[2024-10-04 07:32] LABS: Calcium 9.3 mg/dl (8.6-10.3); Creatinine Clr Calc Pharmacy 102.9 ml/min; Potassium 3.6 mmol/L (3.5-5.1)
--- NOTE | 2024-10-04 23:40 | Hospitalist Progress Note ---
Date of Service October 04, 2024 Assessment & Plan (1) Chronic pain: Plan: Her pain is similar to what has been described in the past (most notably during February admission 2023) in her left groin and radiating down her left leg. This has been evaluated by vascular, ortho spine, orthopedics, OBGYN, surgery and pain management previously. She has a significant history of pain out of proportion to her clinical findings which a significant amount of the time no pathology is found. She usually requests Dilaudid as an inpatient with ever escalating doses and frequency which has essentially led us to this point where she is chronically reliant on opiates to maintain the status quo and she has nothing to help when the pain is worse than usual. Possible her current pain is exacerbated by COVID as this can cause generalized aches but I do not think this warrants starting IV Dilaudid. The pain is not consistent with ischemia, she has been seen by vascular medicine Dr Lin in December 2023 for similar pain and not suspected to be due to ischemia and she has good dorsalis pedis pulse on palpation. Her left foot is cool but with good capillary refill. I do not feel there is any acute pathology at this time and the goal is to get her chronic pain under control with palliative care - ER provider discussed with palliative care and recommended against IV Dilaudid (presumably unless any acute pathology was found) therefore will avoid this overnight. Can give acetaminophen and Toradol in addition to her usual oxycodone pain. I see no outpatient appointments with pain management following the ilioinguinal nerve block, and per hospitalist notes she did have some relief with the ilioinguinal block therefore will additionally consult pain management to consider repeat of this procedure. Continue Lyrica and duloxetine for neuropathic pain. On . Pain appears to be controlled. continue current pain regimen (2) SARS-CoV-2 positive: Plan: Test performed in the ER. Patient denies any symptoms therefore not treatment will be given. Isolation precautions. WBC rising, no fevers. Plan Peripheral artery disease - continue aspirin, clopidogrel HTN - continue clonidine, hydralazine, lisinopril VTE Prophylaxis - Lovenox 40mg SQ daily Diet - regular Disposition - admit to med/surg Admission and Anticipated Discharge Date Admission Date: October 01, 2024 Subjective 59 yo male is resting comfortably. Physical Exam Constitutional: well developed; + not well nourished Respiratory: normal respiratory effort, lungs clear to auscultation Cardiovascular: Rate/Rhythm: regular rate and regular rhythm Vessels: dorsalis pedis pulses present Extremities: normal capillary refill; no edema Gastrointestinal (Abdomen): normal bowel sounds, soft, nontender, no hepatosplenomegaly Psychiatric: Orientation: alert Results & Data Results & Data Vital Signs (Past 12 Hours) Vital Signs Temp Pulse Resp BP BP Pulse Ox O2 Del Method 10/04/24 20:04 36.5 C 99 H 18 147/76 H 98 Nasal Cannula 10/04/24 15:55 Nasal Cannula 10/04/24 12:00 36.7 C 97 H 18 135/75 96 Room Air O2 Flow Rate 10/04/24 20:04 2 10/04/24 15:55 2 10/04/24 12:00 PG Care Time/CCT Total # of Minutes Spent Total Time Spent with Patient: Total time spent is greater than 50% in coordination of care (as documented) at patient's floor/unit and/or counseling patient: Coding Level of Care Code 27353 SUB INP/OBS CARE 2/35MIN Diagnoses Chronic pain G89.29 Chronic pain type: other chronic pain SARS-CoV-2 positive U07.1 (1) Chronic pain Chronic pain type: other chronic pain Qualified Code(s): G89.29 - Other chronic pain
[2024-10-05 06:12] LABS: Basophils # (auto) 0.02 K/uL (0.00-0.20); Basophils % (auto) 0.1 %; Eosinophils # (auto) 0.01 K/uL (0.00-0.50); Eosinophils % (auto) 0.1 %; Hematocrit (blood only) 41.4 % (37.0-47.0); Hemoglobin 13.3 g/dl (12.0-16.0); Immature Granulocytes # (auto) 0.07 K/uL (0.01-0.20); Immature Granulocytes % (auto) 0.5 %; Lymphocytes # (auto) 2.15 K/uL (1.20-3.40); Lymphocytes % (auto) 15.9 %; Mean Corpuscular Hemoglobin 23.5 pg (25.0-34.0); Mean Corpuscular Hgb Conc 32.1 g/dL (32.0-36.0); Mean Corpuscular Volume 73.1 fL (80.0-100.0); Monocytes # (auto) 0.85 K/uL (0.11-0.59); Monocytes % (auto) 6.3 %; Neutrophils # (auto) 10.46 K/uL (1.40-6.50); Neutrophils % (auto) 77.1 %; Platelet Count 342 K/uL (130-400); RDW Standard Deviation 43.8 fL (36.4-46.3); Red Blood Count 5.66 M/uL (4.20-5.40); White Blood Count 13.56 K/ul (4.8-10.8)
[2024-10-05 06:33] LABS: Anion Gap 6 (3-11); BUN Creatinine Ratio 55.8 (10-20); Blood Urea Nitrogen 24 mg/dl (6-23); C Reactive Protein < 0.50 mg/dl (0-0.5); Calcium 8.7 mg/dl (8.6-10.3); Carbon Dioxide 27 mmol/L (21-32); Chloride 100 mmol/L (98-107); Glucose 136 mg/dl (70-99(Fasting)); Potassium 3.4 mmol/L (3.5-5.1); Sodium 133 mmol/L (136-145)
[2024-10-05] MEDS: MELATONIN 3 MG TAB PO PRN (20:13)
--- NOTE | 2024-10-05 22:39 | Hospitalist Progress Note ---
Date of Service October 05, 2024 Assessment & Plan (1) Chronic pain: Plan: Her pain is similar to what has been described in the past (most notably during February admission 2023) in her left groin and radiating down her left leg. This has been evaluated by vascular, ortho spine, orthopedics, OBGYN, surgery and pain management previously. She has a significant history of pain out of proportion to her clinical findings which a significant amount of the time no pathology is found. She usually requests Dilaudid as an inpatient with ever escalating doses and frequency which has essentially led us to this point where she is chronically reliant on opiates to maintain the status quo and she has nothing to help when the pain is worse than usual. Possible her current pain is exacerbated by COVID as this can cause generalized aches but I do not think this warrants starting IV Dilaudid. The pain is not consistent with ischemia, she has been seen by vascular medicine Dr Lin in December 2023 for similar pain and not suspected to be due to ischemia and she has good dorsalis pedis pulse on palpation. Her left foot is cool but with good capillary refill. I do not feel there is any acute pathology at this time and the goal is to get her chronic pain under control with palliative care - ER provider discussed with palliative care and recommended against IV Dilaudid (presumably unless any acute pathology was found) therefore will avoid this overnight. Can give acetaminophen and Toradol in addition to her usual oxycodone pain. I see no outpatient appointments with pain management following the ilioinguinal nerve block, and per hospitalist notes she did have some relief with the ilioinguinal block therefore will additionally consult pain management to consider repeat of this procedure. Continue Lyrica and duloxetine for neuropathic pain. On 10.05 Patient comfortable awaiting goals of care discussion with pallaitive care on 10/06 Pain appears to be controlled. continue current pain regimen no further intervention by vascular/pain management. (2) SARS-CoV-2 positive: Plan: Test performed in the ER. Patient denies any symptoms therefore not treatment will be given. Isolation precautions. WBC rising, no fevers. Plan Peripheral artery disease - continue aspirin, clopidogrel HTN - continue clonidine, hydralazine, lisinopril VTE Prophylaxis - Lovenox 40mg SQ daily Diet - regular Disposition - admit to med/surg Admission and Anticipated Discharge Date Admission Date: October 01, 2024 Subjective Patient is comfortable. Physical Exam Constitutional: well developed; + not well nourished Respiratory: normal respiratory effort, lungs clear to auscultation Cardiovascular: Rate/Rhythm: regular rate and regular rhythm Vessels: dorsalis pedis pulses present Extremities: normal capillary refill; no edema Gastrointestinal (Abdomen): normal bowel sounds, soft, nontender, no hepatosplenomegaly Psychiatric: Orientation: alert Results & Data Results & Data Vital Signs (Past 12 Hours) Vital Signs Temp Pulse Resp BP Pulse Ox O2 Del Method 10/05/24 20:18 37.2 C 92 H 16 162/83 H 98 Nasal Cannula PG Care Time/CCT Total # of Minutes Spent Total Time Spent with Patient: Total time spent is greater than 50% in coordination of care (as documented) at patient's floor/unit and/or counseling patient: Coding Level of Care Code 48960 SUB INP/OBS CARE 2/35MIN Diagnoses Chronic pain G89.29 Chronic pain type: other chronic pain SARS-CoV-2 positive U07.1 (1) Chronic pain Chronic pain type: other chronic pain Qualified Code(s): G89.29 - Other chronic pain
[2024-10-06 06:23] LABS: Hematocrit (blood only) 40.8 % (37.0-47.0); Hemoglobin 13.5 g/dl (12.0-16.0); Mean Corpuscular Hemoglobin 24.1 pg (25.0-34.0); Mean Corpuscular Hgb Conc 33.1 g/dL (32.0-36.0); Mean Corpuscular Volume 72.7 fL (80.0-100.0); Mean Platelet Volume 9.7 fL (9.4-12.4); Platelet Count 366 K/uL (130-400); RDW Coefficient of Variation 16.5 % (11.5-14.5); RDW Standard Deviation 42.7 fL (36.4-46.3); Red Blood Count 5.61 M/uL (4.20-5.40); White Blood Count 10.46 K/ul (4.8-10.8)
[2024-10-06 06:42] LABS: BUN Creatinine Ratio 34.1 (10-20); Creatinine Clr Calc Pharmacy 115.4 ml/min; Potassium 3.7 mmol/L (3.5-5.1)
[2024-10-06] MEDS ORDERED: CARBOHYDRATES FOR HYPOGLYCEMIA PO PRN (20:00)
[2024-10-06] MEDS ORDERED: GLUCOSE 10 TAB/TUBE PO PRN (20:00)
[2024-10-06] MEDS ORDERED: GLUCAGON FOR INJ 1 MG VIAL SQ PRN (20:00)
[2024-10-06] MEDS ORDERED: GLUCOSE 40% GEL 15 GM TUBE PO PRN (20:00)
[2024-10-06] MEDS: SENNA 8.6 MG TAB PO PRN (21:14)
[2024-10-06] MEDS: INSULIN ASPART PER UNIT CHARGE SC SCH (21:16)
--- NOTE | 2024-10-06 21:37 | Hospitalist Progress Note ---
Date of Service October 06, 2024 Assessment & Plan (1) Chronic pain: Plan: Her pain is similar to what has been described in the past (most notably during February admission 2023) in her left groin and radiating down her left leg and now also in right groin and down thigh. This has been evaluated by vascular, ortho spine, orthopedics, OBGYN, surgery and pain management previously. She has a significant history of pain out of proportion to her clinical findings which a significant amount of the time no pathology is found. She usually requests Dilaudid as an inpatient with ever escalating doses and frequency which has essentially led us to this point where she is chronically reliant on opiates to maintain the status quo and she has nothing to help when the pain is worse than usual. The pain is not consistent with ischemia, she has been seen by vascular medicine Dr Lin in December 2023 for similar pain and not suspected to be due to ischemia and she has good dorsalis pedis pulse on palpation. Her left foot is cool but with good capillary refill. 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 Diarrhea now improved, appetite returning but still with some nausea isolation precautions in place Plan #Peripheral artery disease - continue aspirin, clopidogrel #HTN - continue clonidine but switched pillls to a patch, continue hydralazine, lisinopril #DMII-is on Lantus and Novolog at home-add BSGs, ADA diet, and Novolog SSI to her Lantu 10 units #Anxiety-continue hydroxyzine, duloxetine, xanax prn, and add back home Seroquel VTE Prophylaxis - Lovenox 40mg SQ daily Disposition - continued stay med/surg Admission and Anticipated Discharge Date Admission Date: October 01, 2024 Results & Data Results & Data Vital Signs (Past 12 Hours) Vital Signs Temp Pulse Resp BP Pulse Ox O2 Del Method O2 Flow Rate 10/06/24 21:18 37.1 C 83 16 167/75 H 97 Room Air 10/06/24 16:05 37.1 C 90 16 142/67 H 97 Nasal Cannula 2 10/06/24 09:43 Nasal Cannula 2 PG Care Time/CCT Total # of Minutes Spent Total Time Spent with Patient: Total time spent is greater than 50% in coordination of care (as documented) at patient's floor/unit and/or counseling patient: Coding Level of Care Code 26874 SUB INP/OBS CARE 2/35MIN Diagnoses Chronic pain G89.29 Chronic pain type: other chronic pain SARS-CoV-2 positive U07.1 (1) Chronic pain Chronic pain type: other chronic pain Qualified Code(s): G89.29 - Other chronic pain
[2024-10-06] MEDS: QUEtiapine FUMARATE 25 MG TABLET PO SCH (21:57)
[2024-10-07 08:45] LABS: Estimated Average Glucose 143 mg/dl; Hemoglobin A1C 6.6 % (4.5-5.6)
[2024-10-07] MEDS: PREGABALIN 150 MG CAP PO SCH (09:11)
--- NOTE | 2024-10-07 16:19 | Palliative Care Progress Note ---
Date of Service October 06, 2024 Assessment & Plan (1) Palliative care by specialist: Plan: Palliative care continues to follow for pain/symptom mgmt and ACP. 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 (3) Nausea & vomiting: Plan: Pt shared she has constant nausea and emesis with any PO intake. She is also having occasional liquid stool D/w pharmacy, will move Compazine to first and make this IV Continue prn Zofran to 4mg IVP q6h scheduled Zofran and compazine administration should be off set so that an antiemetic is given every three hours, (ie. Zofran 3-9-3-9 AND compazine 6-12-6-12) (4) Therapeutic opioid-induced constipation (OIC): Plan: not currently an issue, pt c/o liquid stool Plan As above This patient will benefit from clear consistent communication across disciplines. it is important for all providers to maintain a unified approach, delivering tanner information in a consistent and direct manner. Attempts to assign blame or introduce misconceptions should be met with a neutral and factual resp onse. A collaborative, non-confrontational approach will help foster a therapeutic relationship, and it is essential to avoid blaming the patient for her challenges. This approach will improve communication and support more effective engagement with her care. Admission and Anticipated Discharge Date Admission Date: October 01, 2024 Subjective late entry note completed 2/2y for visit of 10/07 no acute issues nausea better with IV compazine is tearful "being cooped up in this room, i hate it" will not allow blinds to be opened or the room lights left on but complains of hatingg sitting in darkness Review of Systems Review of Systems: All systems reviewed & are unremarkable except as noted in Subjective Physical Exam Constitutional: well developed, + ill appearing, + thin and + frail appearing Respiratory: normal respiratory effort, lungs clear to auscultation Cardiovascular: Rate/Rhythm: regular rate and regular rhythm Vessels: dorsalis pedis pulses present Extremities: normal capillary refill; no edema Gastrointestinal (Abdomen): normal bowel sounds, soft, nontender, no hepatosplenomegaly Musculoskeletal: Right BKA, otherwise GONZALES with strength and purpose Neurologic: PERRL, EOMI, accommodation nl, no face palsy, no dysarthria Psychiatric: Orientation: alert and oriented x 3 Affect: + anxious affect Mood: + anxious mood Results & Data Vital Signs (Past 12 Hours) Vital Signs Temp Pulse Resp BP Pulse Ox O2 Del Method O2 Flow Rate 10/07/24 08:23 36.8 C 85 18 151/74 H 96 Nasal Cannula 2 PG Care Time/CCT Total # of Minutes Spent Total Time Spent with Patient: Total time spent is greater than 50% in coordination of care (as documented) at patient's floor/unit and/or counseling patient: I spent 45 minutes overall addressing this case: 10 min in medical data review/discussion with referring provider(s) and/or preparation for the visit 10 min in direct interaction with the patient/exam 00 min in Advance Care Planning/Goals of Care discussions as detailed above in note (must be >16min) 10 min in subsequent review and synthesis of assessment and plan 15 min communicating with other providers regarding the patient's case: [place] [address] SUB INP/OBS CARE 3/50MIN Patient Type Established History Comprehensive Exam Comprehensive Medical Decision Making High Complexity Diagnoses Palliative care by specialist Z51.5 Chronic pain syndrome G89.4 Chronic pain type: chronic pain syndrome Nausea & vomiting R11.2 Vomiting type: unspecified Therapeutic opioid-induced constipation (OIC) K59.03; T40.2X5A (2) Chronic pain Chronic pain type: chronic pain syndrome Qualified Code(s): G89.4 - Chronic pain syndrome (3) Nausea & vomiting Vomiting type: unspecified Qualified Code(s): R11.2 - Nausea with vomiting, unspecified
[2024-10-07] MEDS: LORazepam 2 MG/1 ML VIAL IV STA (17:23)
--- NOTE | 2024-10-07 19:33 | Hospitalist Progress Note ---
Date of Service October 07, 2024 Assessment & Plan (1) Chronic pain: Plan: Her pain is similar to what has been described in the past (most notably during February admission 2023) in her left groin and radiating down her left leg and now also in right groin and down thigh. This has been evaluated by vascular, ortho spine, orthopedics, OBGYN, surgery and pain management previously. She has a significant history of pain out of proportion to her clinical findings which a significant amount of the time no pathology is found. She usually requests Dilaudid as an inpatient with ever escalating doses and frequency which has essentially led us to this point where she is chronically reliant on opiates to maintain the status quo and she has nothing to help when the pain is worse than usual. The pain is not consistent with ischemia, she has been seen by vascular medicine Dr Lin in December 2023 for similar pain and not suspected to be due to ischemia and she has good dorsalis pedis pulse on palpation. Her left foot is cool but with good capillary refill. 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 Diarrhea now improved, appetite returning and nausea improved isolation precautions in place but will see if can be removed on 10/08 Plan #Peripheral artery disease - continue aspirin, clopidogrel #HTN - continue clonidine but switched pillls to a patch, continue hydralazine, lisinopril #DMII-is on Lantus and Novolog, A1C well controlled here at 6.6% COntinue BSGs, ADA diet #Anxiety-continue hydroxyzine, duloxetine, xanax prn, and Seroquel. Palliative added prn IV ativan VTE Prophylaxis - Lovenox 40mg SQ daily Disposition - continued stay med/surg Admission and Anticipated Discharge Date Admission Date: October 01, 2024 Subjective Feels pain is better controlled today with higher dose of Lyrica. Was able to sleep better with Seroquel last night. Discussed her care with her at bedside. Nausea is improved, no BM in several days but had diarrhea before that. Appetite still not great but eating some. Wants to know when she can come o ff COVID precautions bc the isolation is making her depressed as she can't see people in the hallway etc Physical Exam Constitutional: WD/WN, vitals as above Respiratory: normal respiratory effort, lungs clear to auscultation Gastrointestinal (Abdomen): normal bowel sounds, soft, nontender, no hepatosplenomegaly Psychiatric: Orientation: alert and oriented x 3 Mood: + depressed mood Results & Data Results & Data Vital Signs (Past 12 Hours) Vital Signs Temp Pulse Resp BP BP Pulse Ox O2 Del Method 10/07/24 17:14 37.0 C 91 H 18 145/79 H 97 Nasal Cannula 10/07/24 08:23 36.8 C 85 18 151/74 H 96 Nasal Cannula O2 Flow Rate 10/07/24 17:14 2 10/07/24 08:23 2 Laboratory Results HgbA1C 6.6% PG Care Time/CCT Total # of Minutes Spent Total Time Spent with Patient: Total time spent is greater than 50% in coordination of care (as documented) at patient's floor/unit and/or counseling patient: Coding Level of Care Code 88977 SUB INP/OBS CARE 09/06MIN Diagnoses Chronic pain G89.29 Chronic pain type: other chronic pain SARS-CoV-2 positive U07.1 (1) Chronic pain Chronic pain type: other chronic pain Qualified Code(s): G89.29 - Other chronic pain
[2024-10-07] MEDS: LORazepam 2 MG/1 ML VIAL IV PRN (23:21)
--- NOTE | 2024-10-08 16:02 | Palliative Care Progress Note ---
Date of Service October 08, 2024 Assessment & Plan (1) Chronic pain: Plan: pt came to ED for intractable severe pain in LLE, groin, and L flank: Home regimen Oxy IR 20mg approx 8-10 daily, no relief Prior methadone was stopped by pt at low dose because "it didn't help at all" She has a long hx of stopping meds when she feels they do not help and then she will also delay her own care, to her own detriment She has a prior substance abuse history in distant past and is opioid tolerant +manipulative behaviors, splitting teams At home pt was using oral oxycodone 160 - 200mg daily without relief 200mg oxy = 400mg oral MS equivalents (OMEs) 400mg PO MS = 133mg IV MS = dilaudid 27mg IV daily equivalent Begin TDF 50mcg q72hr and decrease Dilaudid to 0.1mg DISTRICT SUPERINTENDENT q30min prn if tolerating TDF will transition to Oxy IR 20mg PO q4h prn BTP and back up Dilaudid 0.1mg IV q1h prn Very severe pain unrelieved by oral/Hold for somnolence or RR less than 14; please document RR with each dose administration. (2) Advanced care planning/counseling discussion: Plan: A FACE TO FACE ACP MEETING WAS HELD AT BEDSIDE FOR 60 MIN WITH Liliana and karina. She does not want hospice. she still wants to continue current care and says she would do surgery if advised. we discussed pain med/mgt expectations and i advised she will never be pain free, the best may be in the 5-6 pain level given he progressive nature of her illness. we agreed to begin transition to TDF today and I will reduce DISTRICT SUPERINTENDENT to q30min prn from the current q15min. If TDF is helping tomorrow, we will begin adding in oral Oxy IR for BTP and transition off the DISTRICT SUPERINTENDENT, will need to use Dilaudid 0.2mg IV q1h prn back up for very severe BTP unrelieved by Oxy IR. I did offer her clinic follow up and she will think about it. I would not offer oral dilaudid for OP use at this time, escalating oxycodone is prob best for now and adding in TDF. Her insurance will over TDF but not oxycontin or ms contin. She flatly refused methadone (likely bc no euphoria post dose). (3) Palliative care by specialist: Plan: Palliative care continues to follow for pain/symptom mgmt and ACP. (4) Nausea & vomiting: Plan: Pt shared she has constant nausea and emesis with any PO intake. She is also having occasional liquid stool D/w pharmacy, will move Compazine to first and make this IV Continue prn Zofran to 4mg IVP q6h scheduled Zofran and compazine administration should be off set so that an antiemetic is given every three hours, (ie. Zofran 3-9-3-9 AND compazine 6-12-6-12) (5) Therapeutic opioid-induced constipation (OIC): Plan: not currently an issue, pt c/o liquid stool Plan As above This patient will benefit from clear consistent communication across disci plines. it is important for all providers to maintain a unified approach, delivering tanner information in a consistent and direct manner. Attempts to assign blame or introduce misconceptions should be met with a neutral and factual response. A collaborative, non-confrontational approach will help foster a therapeutic relationship, and it is essential to avoid blaming the patient for her challenges. This approach will improve communication and support more effective engagement with her care. Admission and Anticipated Discharge Date Admission Date: October 01, 2024 Subjective Liliana is seen bedside, Karina present no new distress nausea better pain ok eating ok - more drinking than eating stool still loose no resp distress on clonidine patch for HTN feels she has been using DISTRICT SUPERINTENDENT "a little more" but overall, she has required less Dilaudid IV this admission with DISTRICT SUPERINTENDENT only dilaudid than she has been using on prior admissions and DISTRICT SUPERINTENDENT dose is lower. wants to talk about dispo, home regimen and hospice Review of Systems Review of Systems: All systems reviewed & are unremarkable except as noted in Subjective Physical Exam Constitutional: + ill appearing, + thin, + physical limi tations and cooperative Eyes: PERRL, conjunctivae normal, anicteric sclerae ENMT: Mouth: + poor dentition Neck: normal visual inspection and trachea midline Respiratory: normal respiratory effort, lungs clear to auscultation Cardiovascular: Rate/Rhythm: regular rate and regular rhythm Vessels: do rsalis pedis pulses present Extremities: normal capillary refill; no edema Gastrointestinal (Abdomen): normal bowel sounds, soft, nontender, no hepatosplenomegaly Musculoskeletal: Right BKA, otherwise GONZALES with strength and purpose LLE cool, mild bluish discoloration and blanching on sole of left foot, +amputated toes left foot Neurologic: PERRL, EOMI, accommodation nl, no face palsy, no dysarthria Psychiatric: Orientation: alert and oriented x 3 Affect: + anxious affect Mood: + anxious mood Results & Data Vital Signs (Past 12 Hours) Vital Signs Temp Pulse Resp BP Pulse Ox O2 Del Method O2 Flow Rate 10/08/24 15:23 37.0 C 72 20 158/68 H 97 Room Air 10/08/24 08:00 36.8 C 16 192/72 H 97 Nasal Cannula 2 10/08/24 07:59 Nasal Cannula 2 Laboratory Results 10/08/24 10/08/24 10/08/24 Range/Units 20:11 17:07 11:50 WBC (4.8-10.8) K/ul RBC (4.20-5.40) M/uL Hgb (12.0-16.0) g/dl Hct (37.0-47.0) % MCV (80.0-100.0) fL MCH (25.0-34.0) pg MCHC (32.0-36.0) g/dL RDW Std Deviation (36.4-46.3) fL RDW Coeff of Maria Del Carmen (11.5-14.5) % Plt Count (130-400) K/uL MPV (9.4-12.4) fL Immature Gran % (Auto) % Neut % (Auto) % Lymph % (Auto) % Clayton % (Auto) % Eos % (Auto) % Baso % (Auto) % Neut # (Auto) (1.40-6.50) K/uL Lymph # (Auto) (1.20-3.40) K/uL Clayton # (Auto) (0.11-0.59) K/uL Eos # (Auto) (0.00-0.50) K/uL Baso # (Auto) (0.00-0.20) K/uL Immature Gran # (Auto) (0.01-0.20) K/uL VBG pH (7.36-7.41) VBG pCO2 (38-50) mmHg VBG pO2 mmHg VBG HCO3 mmol/L VBG O2 Saturation % VBG Base Excess mEq/L Sodium (136-145) mmol/L Potassium (3.5-5.1) mmol/L Chloride (98-107) mmol/L Carbon Dioxide (21-32) mmol/L Anion Gap (3-11) BUN (6-23) mg/dl Creatinine (0.6-1.2) mg/dl Est Cr Clr Drug Dosing ml/min eGFR BUN/Creatinine Ratio (10-20) Glucose (70-99(Fasting)) mg/dl POC Glucose 125 H 134 H 131 H (70-99) mg/dl Estimat Average Glucose mg/dl Hemoglobin A1c (4.5-5.6) % Calcium (8.6-10.3) mg/dl Total Bilirubin (0.2-1.0) mg/dl AST (13-39) U/L ALT (7-52) U/L Alkaline Phosphatase (34-104) U/L Total Creatine Kinase (26-192) U/L Troponin I High Sens (0-14) pg/ml C-Reactive Protein (0-0.5) mg/dl Total Protein (6.0-8.3) gm/dl Albumin (3.4-5.0) gm/dl Globulin (2.5-4.0) gm/dl Albumin/Globulin Ratio (0.9-2) Procalcitonin (0-0.5) ng/ml 10/08/24 10/08/24 10/07/24 Range/Units 07:57 07:20 20:57 WBC (4.8-10.8) K/ul RBC (4.20-5.40) M/uL Hgb (12.0-16.0) g/dl Hct (37.0-47.0) % MCV (80.0-100.0) fL MCH (25.0-34.0) pg MCHC (32.0-36.0) g/dL RDW Std Deviation (36.4-46.3) fL RDW Coeff of Maria Del Carmen (11.5-14.5) % Plt Count (130-400) K/uL MPV (9.4-12.4) fL Immature Gran % (Auto) % Neut % (Auto) % Lymph % (Auto) % Clayton % (Auto) % Eos % (Auto) % Baso % (Auto) % Neut # (Auto) (1.40-6.50) K/uL Lymph # (Auto) (1.20-3.40) K/uL Clayton # (Auto) (0.11-0.59) K/uL Eos # (Auto) (0.00-0.50) K/uL Baso # (Auto) (0.00-0.20) K/uL Immature Gran # (Auto) (0.01-0.20) K/uL VBG pH (7.36-7.41) VBG pCO2 (38-50) mmHg VBG pO2 mmHg VBG HCO3 mmol/L VBG O2 Saturation % VBG Base Excess mEq/L Sodium (136-145) mmol/L Potassium (3.5-5.1) mmol/L Chloride (98-107) mmol/L Carbon Dioxide (21-32) mmol/L Anion Gap (3-11) BUN (6-23) mg/dl Creatinine 0.43 L (0.6-1.2) mg/dl Est Cr Clr Drug Dosing 110.0 ml/min eGFR 111.28 BUN/Creatinine Ratio (10-20) Glucose (70-99(Fasting)) mg/dl POC Glucose 136 H 129 H (70-99) mg/dl Estimat Average Glucose mg/dl Hemoglobin A1c (4.5-5.6) % Calcium (8.6-10.3) mg/dl Total Bilirubin (0.2-1.0) mg/dl AST (13-39) U/L ALT (7-52) U/L Alkaline Phosphatase (34-104) U/L Total Creatine Kinase (26-192) U/L Troponin I High Sens (0-14) pg/ml C-Reactive Protein (0-0.5) mg/dl Total Protein (6.0-8.3) gm/dl Albumin (3.4-5.0) gm/dl Globulin (2.5-4.0) gm/dl Albumin/Globulin Ratio (0.9-2) Procalcitonin (0-0.5) ng/ml 10/07/24 10/07/24 10/07/24 Range/Units 17:10 12:13 08:20 WBC (4.8-10.8) K/ul RBC (4.20-5.40) M/uL Hgb (12.0-16.0) g/dl Hct (37.0-47.0) % MCV (80.0-100.0) fL MCH (25.0-34.0) pg MCHC (32.0-36.0) g/dL RDW Std Deviation (36.4-46.3) fL RDW Coeff of Maria Del Carmen (11.5-14.5) % Plt Count (130-400) K/uL MPV (9.4-12.4) fL Immature Gran % (Auto) % Neut % (Auto) % Lymph % (Auto) % Clayton % (Auto) % Eos % (Auto) % Baso % (Auto) % Neut # (Auto) (1.40-6.50) K/uL Lymph # (Auto) (1.20-3.40) K/uL Clayton # (Auto) (0.11-0.59) K/uL Eos # (Auto) (0.00-0.50) K/uL Baso # (Auto) (0.00-0.20) K/uL Immature Gran # (Auto) (0.01-0.20) K/uL VBG pH (7.36-7.41) VBG pCO2 (38-50) mmHg VBG pO2 mmHg VBG HCO3 mmol/L VBG O2 Saturation % VBG Base Excess mEq/L Sodium (136-145) mmol/L Potassium (3.5-5.1) mmol/L Chloride (98-107) mmol/L Carbon Dioxide (21-32) mmol/L Anion Gap (3-11) BUN (6-23) mg/dl Creatinine (0.6-1.2) mg/dl Est Cr Clr Drug Dosing ml/min eGFR BUN/Creatinine Ratio (10-20) Glucose (70-99(Fasting)) mg/dl POC Glucose 105 H 107 H 127 H (70-99) mg/dl Estimat Average Glucose mg/dl Hemoglobin A1c (4.5-5.6) % Calcium (8.6-10.3) mg/dl Total Bilirubin (0.2-1.0) mg/dl AST (13-39) U/L ALT (7-52) U/L Alkaline Phosphatase (34-104) U/L Total Creatine Kinase (26-192) U/L Troponin I High Sens (0-14) pg/ml C-Reactive Protein (0-0.5) mg/dl Total Protein (6.0-8.3) gm/dl Albumin (3.4-5.0) gm/dl Globulin (2.5-4.0) gm/dl Albumin/Globulin Ratio (0.9-2) Procalcitonin (0-0.5) ng/ml 10/07/24 10/06/24 10/06/24 Range/Units 04:44 21:13 05:48 WBC 10.46 (4.8-10.8) K/ul RBC 5.61 H (4.20-5.40) M/uL Hgb 13.5 (12.0-16.0) g/dl Hct 40.8 (37.0-47.0) % MCV 72.7 L (80.0-100.0) fL MCH 24.1 L (25.0-34.0) pg MCHC 33.1 (32.0-36.0) g/dL RDW Std Deviation 42.7 (36.4-46.3) fL RDW Coeff of Maria Del Carmen 16.5 H (11.5-14.5) % Plt Count 366 (130-400) K/uL MPV 9.7 (9.4-12.4) fL Immature Gran % (Auto) % Neut % (Auto) % Lymph % (Auto) % Clayton % (Auto) % Eos % (Auto) % Baso % (Auto) % Neut # (Auto) (1.40-6.50) K/uL Lymph # (Auto) (1.20-3.40) K/uL Clayton # (Auto) (0.11-0.59) K/uL Eos # (Auto) (0.00-0.50) K/uL Baso # (Auto) (0.00-0.20) K/uL Immature Gran # (Auto) (0.01-0.20) K/uL VBG pH (7.36-7.41) VBG pCO2 (38-50) mmHg VBG pO2 mmHg VBG HCO3 mmol/L VBG O2 Saturation % VBG Base Excess mEq/L Sodium 135 L (136-145) mmol/L Potassium 3.7 (3.5-5.1) mmol/L Chloride 102 (98-107) mmol/L Carbon Dioxide 27 (21-32) mmol/L Anion Gap 6 (3-11) BUN 14 (6-23) mg/dl Creatinine 0.41 L (0.6-1.2) mg/dl Est Cr Clr Drug Dosing 115.4 ml/min eGFR 112.56 BUN/Creatinine Ratio 34.1 H (10-20) Glucose 130 H (70-99(Fasting)) mg/dl POC Glucose 128 H (70-99) mg/dl Estimat Average Glucose 143 mg/dl Hemoglobin A1c 6.6 H (4.5-5.6) % Calcium 9.0 (8.6-10.3) mg/dl Total Bilirubin (0.2-1.0) mg/dl AST (13-39) U/L ALT (7-52) U/L Alkaline Phosphatase (34-104) U/L Total Creatine Kinase (26-192) U/L Troponin I High Sens (0-14) pg/ml C-Reactive Protein (0-0.5) mg/dl Total Protein (6.0-8.3) gm/dl Albumin (3.4-5.0) gm/dl Globulin (2.5-4.0) gm/dl Albumin/Globulin Ratio (0.9-2) Procalcitonin (0-0.5) ng/ml 10/05/24 10/04/24 10/04/24 Range/Units 05:40 11:09 06:27 WBC 13.56 H 12.38 H (4.8-10.8) K/ul RBC 5.66 H 5.94 H (4.20-5.40) M/uL Hgb 13.3 14.3 (12.0-16.0) g/dl Hct 41.4 43.4 (37.0-47.0) % MCV 73.1 L 73.1 L (80.0-100.0) fL MCH 23.5 L 24.1 L (25.0-34.0) pg MCHC 32.1 32.9 (32.0-36.0) g/dL RDW Std Deviation 43.8 43.7 (36.4-46.3) fL RDW Coeff of Maria Del Carmen 17.0 H 17.2 H (11.5-14.5) % Plt Count 342 363 (130-400) K/uL MPV 10.0 10.2 (9.4-12.4) fL Immature Gran % (Auto) 0.5 % Neut % (Auto) 77.1 % Lymph % (Auto) 15.9 % Clayton % (Auto) 6.3 % Eos % (Auto) 0.1 % Baso % (Auto) 0.1 % Neut # (Auto) 10.46 H (1.40-6.50) K/uL Lymph # (Auto) 2.15 (1.20-3.40) K/uL Clayton # (Auto) 0.85 H (0.11-0.59) K/uL Eos # (Auto) 0.01 (0.00-0.50) K/uL Baso # (Auto) 0.02 (0.00-0.20) K/uL Immature Gran # (Auto) 0.07 (0.01-0.20) K/uL VBG pH (7.36-7.41) VBG pCO2 (38-50) mmHg VBG pO2 mmHg VBG HCO3 mmol/L VBG O2 Saturation % VBG Base Excess mEq/L Sodium 133 L 133 L (136-145) mmol/L Potassium 3.4 L 3.6 (3.5-5.1) mmol/L Chloride 100 97 L (98-107) mmol/L Carbon Dioxide 27 27 (21-32) mmol/L Anion Gap 6 9 (3-11) BUN 24 H 17 (6-23) mg/dl Creatinine 0.43 L 0.46 L (0.6-1.2) mg/dl Est Cr Clr Drug Dosing 110.0 102.9 ml/min eGFR 111.28 109.48 BUN/Creatinine Ratio 55.8 H 37.0 H (10-20) Glucose 136 H 164 H (70-99(Fasting)) mg/dl POC Glucose 186 H (70-99) mg/dl Estimat Average Glucose mg/dl Hemoglobin A1c (4.5-5.6) % Calcium 8.7 9.3 (8.6-10.3) mg/dl Total Bilirubin (0.2-1.0) mg/dl AST (13-39) U/L ALT (7-52) U/L Alkaline Phosphatase (34-104) U/L Total Creatine Kinase (26-192) U/L Troponin I High Sens (0-14) pg/ml C-Reactive Protein < 0.50 (0-0.5) mg/dl Total Protein (6.0-8.3) gm/dl Albumin (3.4-5.0) gm/dl Globulin (2.5-4.0) gm/dl Albumin/Globulin Ratio (0.9-2) Procalcitonin < 0.02 (0-0.5) ng/ml 10/03/24 10/03/24 10/02/24 Range/Units 06:20 05:34 11:34 WBC 10.18 8.29 (4.8-10.8) K/ul RBC 5.16 5.76 H (4.20-5.40) M/uL Hgb 12.2 13.5 (12.0-16.0) g/dl Hct 38.2 43.3 (37.0-47.0) % MCV 74.0 L 75.2 L (80.0-100.0) fL MCH 23.6 L 23.4 L (25.0-34.0) pg MCHC 31.9 L 31.2 L (32.0-36.0) g/dL RDW Std Deviation 44.8 45.3 (36.4-46.3) fL RDW Coeff of Maria Del Carmen 16.8 H 17.8 H (11.5-14.5) % Plt Count 247 249 (130-400) K/uL MPV 10.3 10.2 (9.4-12.4) fL Immature Gran % (Auto) 0.2 % Neut % (Auto) 41.5 % Lymph % (Auto) 45.6 % Clayton % (Auto) 9.9 % Eos % (Auto) 2.2 % Baso % (Auto) 0.6 % Neut # (Auto) 3.44 (1.40-6.50) K/uL Lymph # (Auto) 3.78 H (1.20-3.40) K/uL Clayton # (Auto) 0.82 H (0.11-0.59) K/uL Eos # (Auto) 0.18 (0.00-0.50) K/uL Baso # (Auto) 0.05 (0.00-0.20) K/uL Immature Gran # (Auto) 0.02 (0.01-0.20) K/uL VBG pH 7.37 (7.36-7.41) VBG pCO2 55 H (38-50) mmHg VBG pO2 22 mmHg VBG HCO3 32 mmol/L VBG O2 Saturation < 60.0 % VBG Base Excess 5.0 mEq/L Sodium 135 L 137 (136-145) mmol/L Potassium 4.3 4.3 (3.5-5.1) mmol/L Chloride 100 101 (98-107) mmol/L Carbon Dioxide 26 29 (21-32) mmol/L Anion Gap 9 7 (3-11) BUN 15 13 (6-23) mg/dl Creatinine 0.43 L D 0.76 (0.6-1.2) mg/dl Est Cr Clr Drug Dosing 110.0 62.3 ml/min eGFR 111.28 89.65 BUN/Creatinine Ratio 34.9 H 17.1 (10-20) Glucose 121 H 135 H (70-99(Fasting)) mg/dl POC Glucose 115 H (70-99) mg/dl Estimat Average Glucose mg/dl Hemoglobin A1c (4.5-5.6) % Calcium 9.1 9.7 (8.6-10.3) mg/dl Total Bilirubin 0.6 (0.2-1.0) mg/dl AST 15 (13-39) U/L ALT 8 (7-52) U/L Alkaline Phosphatase 68 (34-104) U/L Total Creatine Kinase 33 (26-192) U/L Troponin I High Sens (0-14) pg/ml C-Reactive Protein < 0.50 (0-0.5) mg/dl Total Protein 7.8 (6.0-8.3) gm/dl Albumin 4.6 (3.4-5.0) gm/dl Globulin 3.2 (2.5-4.0) gm/dl Albumin/Globulin Ratio 1.4 (0.9-2) Procalcitonin (0-0.5) ng/ml 10/02/24 Range/Units 06:04 WBC (4.8-10.8) K/ul RBC (4.20-5.40) M/uL Hgb (12.0-16.0) g/dl Hct (37.0-47.0) % MCV (80.0-100.0) fL MCH (25.0-34.0) pg MCHC (32.0-36.0) g/dL RDW Std Deviation (36.4-46.3) fL RDW Coeff of Maria Del Carmen (11.5-14.5) % Plt Count (130-400) K/uL MPV (9.4-12.4) fL Immature Gran % (Auto) % Neut % (Auto) % Lymph % (Auto) % Clayton % (Auto) % Eos % (Auto) % Baso % (Auto) % Neut # (Auto) (1.40-6.50) K/uL Lymph # (Auto) (1.20-3.40) K/uL Clayton # (Auto) (0.11-0.59) K/uL Eos # (Auto) (0.00-0.50) K/uL Baso # (Auto) (0.00-0.20) K/uL Immature Gran # (Auto) (0.01-0.20) K/uL VBG pH (7.36-7.41) VBG pCO2 (38-50) mmHg VBG pO2 mmHg VBG HCO3 mmol/L VBG O2 Saturation % VBG Base Excess mEq/L Sodium (136-145) mmol/L Potassium (3.5-5.1) mmol/L Chloride (98-107) mmol/L Carbon Dioxide (21-32) mmol/L Anion Gap (3-11) BUN (6-23) mg/dl Creatinine (0.6-1.2) mg/dl Est Cr Clr Drug Dosing ml/min eGFR BUN/Creatinine Ratio (10-20) Glucose (70-99(Fasting)) mg/dl POC Glucose (70-99) mg/dl Estimat Average Glucose mg/dl Hemoglobin A1c (4.5-5.6) % Calcium (8.6-10.3) mg/dl Total Bilirubin (0.2-1.0) mg/dl AST (13-39) U/L ALT (7-52) U/L Alkaline Phosphatase (34-104) U/L Total Creatine Kinase (26-192) U/L Troponin I High Sens 8.0 (0-14) pg/ml C-Reactive Protein (0-0.5) mg/dl Total Protein (6.0-8.3) gm/dl Albumin (3.4-5.0) gm/dl Globulin (2.5-4.0) gm/dl Albumin/Globulin Ratio (0.9-2) Procalcitonin (0-0.5) ng/ml Diagnostic Findings no new imaging PG Care Time/CCT Total # of Minutes Spent Total Time Spent with Patient: Total time spent is greater than 50% in coordination of care (as documented) at patient's floor/unit and/or counseling patient: I spent 110 minutes overall addressing this case: 10 min in medical data review/discussion with referring provider(s) and/or preparation for the visit 10 min in direct interaction with the patient/exam 60 min in Advance Care Planning/Goals of Care discussions as detailed above in note (must be >16min) 15 min in subsequent review and synthesis of assessment and plan 15 min communicating with other providers regarding the patient's case: Advanced Care Planning 65362 Advanced Care Planning 30 Min 15424 Advanced Care Planning Additional 30 Min [place] [address] SUB INP/OBS CARE 3/50MIN (25 - SIGNIFICANT, SEPARATELY IDENTIFIABLE ) Patient Type Established Diagnoses Chronic pain syndrome G89.4 Chronic pain type: chronic pain syndrome Advanced care planning/counseling discussion Z71.89 Palliative care by specialist Z51.5 Nausea & vomiting R11.2 Vomiting type: unspecified Therapeutic opioid-induced constipation (OIC) K59.03; [id number] Additional Codes Advanced Care Planning - 82081 Advanced Care Planning Additional 30 Min: 15070 Advanced Care Planning Additional 30 Min ([id number]) Advanced Care Planning - 79049 Advanced Care Planning 30 Min: 32190 Advanced Care Planning 30 Min ([id number]) (1) Chronic pain Chronic pain type: chronic pain syndrome Qualified Code(s): G89.4 - Chronic pain syndrome (4) Nausea & vomiting Vomiting type: unspecified Qualified Code(s): R11.2 - Nausea with vomiting, unspecified
[2024-10-08] MEDS: fentaNYL 50 MCG/HR TDSY TD SCH (17:29)
--- NOTE | 2024-10-08 17:48 | Hospitalist Progress Note ---
Date of Service October 08, 2024 Assessment & Plan (1) Chronic pain: Plan: Her pain is similar to what has been described in the past (most notably during February admission 2023) in her left groin and radiating down her left leg and now also in right groin and down thigh. This has been evaluated by vascular, ortho spine, orthopedics, OBGYN, surgery and pain management previously. She has a significant history of pain out of proportion to her clinical findings which a significant amount of the time no pathology is found. She usually requests Dilaudid as an inpatient with ever escalating doses and frequency which has essentially led us to this point where she is chronically reliant on opiates to maintain the status quo and she has nothing to help when the pain is worse than usual. The pain is not consistent with ischemia, she has been seen by vascular medicine Dr Lin in December 2023 for similar pain and not suspected to be due to ischemia and she has good dorsalis pedis pulse on palpation. Her left foot is cool but with good capillary refill. 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 Diarrhea now improved, appetite remains low and nausea comes and goes isolation precautions in place continue zofran, compazine, ativan for nausea Increase Abilify to 5mg po qAM which can help with nausea Plan #Peripheral artery disease - continue aspirin, clopidogrel #HTN - BPs elevated at times but could be from pain, anxiety -continue clonidine but switched pillls to a patch -continue hydralazine, lisinopril #DMII-is on Lantus and Novolog, A1C well controlled here at 6.6% COntinue BSGs, ADA diet #Anxiety-continue hydroxyzine, duloxetine, IV ativan, holding home xanax prn, continue home Seroquel. 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 Complains of ongoing nausea. CHronic amount of pain. 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
[2024-10-08] MEDS: SENNA 8.6 MG TAB PO SCH (20:52)
[2024-10-09] MEDS: CHECK fentaNYL PATCH PLACEMENT SCH
[2024-10-09] MEDS: ARIPiprazole 5 MG TAB PO SCH (09:35)
[2024-10-09] MEDS: POLYETHYLENE (MIRALAX) 17 GM PACK PO SCH (09:38)
--- NOTE | 2024-10-09 17:03 | Hospitalist Progress Note ---
Date of Service October 09, 2024 Assessment & Plan (1) Chronic pain: (2) SARS-CoV-2 positive: Plan #Chronic pain: Her pain is similar to what has been described in the past (most notably during February admission 2023) in her left groin and radiating down her left leg and now also in right groin and down thigh. This has been evaluated by vascular, ortho spine, orthopedics, OBGYN, surgery and pain management previously. She has a significant history of pain out of proportion to her clinical findings which a significant amount of the time no pathology is found. She usually requests Dilaudid as an inpatient with ever escalating doses and frequency which has essentially led us to this point where she is chronically reliant on opiates to maintain the status quo and she has nothing to help when the pain is worse than usual. The pain is not consistent with ischemia, she has been seen by vascular medicine Dr Lin in December 2023 for similar pain and not suspected to be due to ischemia and she has good dorsalis pedis pulse on palpation. Her left foot is cool but with good capillary refill. She has been on numerous different long and short acting opioids to include MS COntin, Morphine, and methadone, Fentanyl patch I do not feel there is any acute pathology at this time and the goal is to get her chronic pain under control with palliative care - pain management previously performed ilioinguinal nerve block, and per hospitalist notes she did have some relief with the ilioinguinal block-consulted pain management and no further procedures offered Now pain control improved on Dilaudid SPECIAL TESTER and she really is using far less dilaudid than ever before during previous hospital stays Pain improved also with increased dose of Lyrica Seen multiple times by Palliative Med and now started Fentanyl patch 50 mcg TD, wean off dilaudid SPECIAL TESTER-down to 0.1mg q30min, and after off SPECIAL TESTER, plan to give po oxycodone for breakthrough pain Continue Lyrica at increased dose of 150mg po tid for what is likely neuropathic pain Continue duloxetine #Opioid-induced constipation- ongoing -continue scheduled sennakot and Miralax once daily #COVID-19/Nausea-She reports having fevers at home, nausea/vomiting, and di arrhea. Diarrhea now improved, appetite remains low and nausea comes and goes but is improved with increasing Abilify dose isolation precautions in place continue zofran prn, compazine prn (no doses used), ativan for nausea Increased Abilify to 5mg po qAM which can help with nausea #Anxiety/Insomnia-continue hydroxyzine, duloxetine, IV ativan, holding home xanax prn -continue increased dose of Abilify 5mg po qAM -increase Seroquel to 50mg po hs for depression and for sleep #Peripheral artery disease - no acute issues, seen by Vascular Medicine here -continue aspirin, clopidogrel #HTN - BPs elevated at times but could be from pain, anxiety -continue clonidine but switched pillls to a patch -continue hydralazine, lisinopril #DMII-is on Lantus and Novolog, A1C well controlled here at 6.6% Continue BSGs, ADA diet VTE Prophylaxis - Lovenox 40mg SQ daily Disposition - continued stay med/surg, hopeful for dc this weekend after weaned off dilaudid SPECIAL TESTER Admission and Anticipated Discharge Date Admission Date: October 01, 2024 Subjective Pt reports she got not a single minute of sleep last night. Nausea today is better. No BM but passing a lot of gas. Pain is uncontrolled today. She only took a total of 1mg of IV dilaudid from 1600 yesterday till 6:00 AM this AM. Physical Exam Constitutional: WD/WN, vitals as above Respiratory: normal respiratory effort, lungs clear to auscultation Cardiovascular: RRR, no murmur, no edema Gastrointestinal (Abdomen): normal bowel sounds, soft, nontender, no hepatosplenomegaly Psychiatric: Orientation: alert and oriented x 3 Mood: + depressed mood Results & Data Results & Data Vital Signs (Past 12 Hours) Vital Signs Temp Pulse Resp BP Pulse Ox O2 Del Method O2 Flow Rate 10/09/24 15:00 37 C 64 12 143/75 H 100 Nasal Cannula 2 10/09/24 09:10 Nasal Cannula 2 10/09/24 07:00 98 Nasal Cannula 3 10/09/24 07:00 37 C 72 13 167/73 H 97 Nasal Cannula 3 PG Care Time/CCT Total # of Minutes Spent Total Time Spent with Patient: Total time spent is greater than 50% in coordination of care (as documented) at patient's floor/unit and/or counseling patient: Coding Level of Care Code 07022 SUB INP/OBS CARE 2/35MIN Diagnoses Chronic pain G89.29 Chronic pain type: other chronic pain SARS-CoV-2 positive U07.1 (1) Chronic pain Chronic pain type: other chronic pain Qualified Code(s): G89.29 - Other chronic pain
[2024-10-09] MEDS: QUEtiapine FUMARATE 25 MG TABLET PO SCH (21:48)
[2024-10-10] MEDS: fentaNYL 75 MCG/HR TDSY TD SCH (12:59)
[2024-10-10] MEDS: oxyCODONE HCL IR 30 MG TAB (IMMEDIATE RELEASE) PO PRN (13:33)
--- NOTE | 2024-10-10 14:04 | Hospitalist Progress Note ---
Date of Service October 10, 2024 Assessment & Plan (1) Chronic pain: (2) SARS-CoV-2 positive: Plan #Chronic pain: Her pain is similar to what has been described in the past (most notably during February admission 2023) in her left groin and radiating down her left leg and now also in right groin and down thigh. This has been evaluated by vascular, ortho spine, orthopedics, OBGYN, surgery and pain management previously. She has a significant history of pain out of proportion to her clinical findings which a significant amount of the time no pathology is found. She usually requests Dilaudid as an inpatient with ever escalating doses and frequency which has essentially led us to this point where she is chronically reliant on opiates to maintain the status quo and she has nothing to help when the pain is worse than usual. The pain is not consistent with ischemia, she has been seen by vascular medicine Dr Lin in December 2023 and again this admission for similar pain and not suspected to be due to ischemia and she has good dorsalis pedis pulse on palpation. Her left foot is cool but with good capillary refill. She has been on numerous different long and short acting opioids to include MS COntin, Morphine, and methadone, Fentanyl patch I do not feel there is any acute pathology at this time and the goal is to get her chronic pain under control with palliative care - pain management previously performed ilioinguinal nerve block, and per hospitalist notes she did have some relief with the ilioinguinal block-consulted pain management and no further procedures offered This is neuropathic pain Now pain control improved on Dilaudid RUNNER MAN and she really is using far less dilaudid than ever before during previous hospital stays Pain improved also with increased dose of Lyrica Seen multiple times by Palliative Med and now started Fentanyl patch to wean off dilaudid RUNNER MAN -increase Fentanyl patch to 75 mcg, add po oxycodone 30mg for breakthrough pain and backup of IV dilaudid prn -Continue Lyrica at increased dose of 150mg po tid -Continue duloxetine #Left axillary lymphadenitis and cellulitis-developed acute onset of painful swollen lumps in left axilla on 10/10. Suspect lymphadenitis but could be small abscess also -check US left axilla -start Daptomycin for Staph and Strep coverage -consult SUrgery if abscess for drainage on US #Opioid-induced constipation- ongoing -continue scheduled sennakot and Miralax once daily #COVID-19/Nausea-She reports having fevers at home, nausea/vomiting, and diarrhea. Diarrhea now improved, appetite remains low and nausea comes and goes but is improved with increasing Abilify dose isolation precautions in place continue zofran prn, compazine prn (no doses used), ativan for nausea Increased Abilify to 5mg po qAM which can help with nausea-improved #Anxiety/Insomnia-continue hydroxyzine, duloxetine, IV ativan, holding home xanax prn -continue increased dose of Abilify 5mg po qAM -increased Seroquel to 50mg po hs for depression and for sleep #Peripheral artery disease - no acute issues, seen by Vascular Medicine here -continue aspirin, clopidogrel #HTN - BPs elevated at times but could be from pain, anxiety -continue clonidine but switched pillls to a patch -continue hydralazine, lisinopril #DMII-is on Lantus and Novolog, A1C well controlled here at 6.6% Continue BSGs, ADA diet VTE Prophylaxis - Lovenox 40mg SQ daily Disposition - continued stay med/surg, hopeful for dc Sunday if pain controlled on new regimen-Nurse Navigator will need to do a prior auth for Fentanyl patch once home dose determined Admission and Anticipated Discharge Date Admission Date: October 01, 2024 Subjective Pt has c/o left axillary lump and pain. This has happened to her before and required surgical drainage. Otherwise, I discussed her care with Palliative and now stopped dilaudid RUNNER MAN, increased fentanyl patch dose and giving oxy prn breakthrough. No BM yet but feels it is close. Physical Exam Constitutional: WD/WN, vitals as above Respiratory: normal respiratory effort, lungs clear to auscultation Cardiovascular: RRR, no murmur, no edema Gastrointestinal (Abdomen): normal bowel sounds, soft, nontender, no hepatosplenomegaly Skin: left axilla with 2 large and one small fluctuant masses that are mobile and with overlying erythema and exquisite tenderness Psychiatric: Orientation: alert and oriented x 3 Results & Data Results & Data Vital Signs (Past 12 Hours) Vital Signs Temp Pulse Resp BP Pulse Ox O2 Del Method O2 Flow Rate 10/10/24 08:45 Nasal Cannula 2 10/10/24 07:51 37 C 61 16 125/66 100 Nasal Cannula 2 10/10/24 03:46 36.9 C 70 16 137/75 97 Nasal Cannula 2 PG Care Time/CCT Total # of Minutes Spent Total Time Spent with Patient: Total time spent is greater than 50% in coordination of care (as documented) at patient's floor/unit and/or counseling patient: Coding Level of Care Code 93661 SUB INP/OBS CARE 3/50MIN Diagnoses Chronic pain G89.29 Chronic pain type: other chronic pain SARS-CoV-2 positive U07.1 (1) Chronic pain Chronic pain type: other chronic pain Qualified Code(s): G89.29 - Other chronic pain
[2024-10-10] MEDS: HYDROmorphone INJ 0.5 MG/0.5 ML SYR IV PRN (14:52)
[2024-10-10 15:44] LABS: Basophils # (auto) 0.05 K/uL (0.00-0.20); Basophils % (auto) 0.5 %; Eosinophils # (auto) 0.47 K/uL (0.00-0.50); Eosinophils % (auto) 4.3 %; Hematocrit (blood only) 37.9 % (37.0-47.0); Immature Granulocytes # (auto) 0.03 K/uL (0.01-0.20); Immature Granulocytes % (auto) 0.3 %; Lymphocytes # (auto) 2.66 K/uL (1.20-3.40); Lymphocytes % (auto) 24.1 %; Mean Corpuscular Hgb Conc 31.7 g/dL (32.0-36.0); Mean Corpuscular Volume 75.6 fL (80.0-100.0); Mean Platelet Volume 9.7 fL (9.4-12.4); Monocytes # (auto) 0.96 K/uL (0.11-0.59); Monocytes % (auto) 8.7 %; Neutrophils # (auto) 6.86 K/uL (1.40-6.50); Neutrophils % (auto) 62.1 %; Platelet Count 292 K/uL (130-400); RDW Coefficient of Variation 17.7 % (11.5-14.5); RDW Standard Deviation 48.1 fL (36.4-46.3); Red Blood Count 5.01 M/uL (4.20-5.40); White Blood Count 11.03 K/ul (4.8-10.8)
[2024-10-10 16:03] LABS: Alanine Aminotransferase 15 U/L (7-52); Albumin Globulin Ratio 1.8 (0.9-2); Albumin Level 3.9 gm/dl (3.4-5.0); Alkaline Phosphatase 48 U/L (34-104); Anion Gap 6 (3-11); Aspartate Aminotransferase 12 U/L (13-39); Bilirubin,Total 0.2 mg/dl (0.2-1.0); Blood Urea Nitrogen 20 mg/dl (6-23); C Reactive Protein < 0.50 mg/dl (0-0.5); Calcium 9.1 mg/dl (8.6-10.3); Carbon Dioxide 32 mmol/L (21-32); Chloride 99 mmol/L (98-107); Creatinine Clr Calc Pharmacy 68.6 ml/min; Globulin 2.2 gm/dl (2.5-4.0); Glucose 120 mg/dl (70-99(Fasting)); Potassium 4.8 mmol/L (3.5-5.1); Sodium 137 mmol/L (136-145); Total Protein 6.1 gm/dl (6.0-8.3)
--- NOTE | 2024-10-10 16:10 | Ultrasound Report ---
US axilla LT CLINICAL HISTORY: mass,assess for abscess vs lymphadenopathy COMPARISON STUDY: Chest CT of 06/30/2024. FINDINGS: At the site of palpable complaint at the left axilla there is a 1.6 cm greatest dimension w ider than tall hypoechoic finding in the superficial soft tissues just deep to the skin with possible peripheral vascular flow. There is a similar nearby superficial finding measuring 8 mm. There is an adjacent area of edematous appearing tissue measuring approximately 5 cm greatest dimension. No absce ss seen. IMPRESSION: 1. Findings at the left axilla are nonspecific. There is a 5 cm area of edematous appearing tissue sánchez ggesting cellulitis. 2. Nonspecific superficial findings could represent reactive lymph nodes or inflamed sebaceous cysts. Clinical follow-up is recommended. If the clinical findings do not improve, follow-up imaging and co nsideration of biopsy would be suggested. ACT 112: Positive. There are findings on this exam that require communication between the performing entity and the patient following Patient Test Result Information Act ([place] Act 112) guidelines. Electronically signed by: Anil Gunter M.D. 10/10/2024 4:08 PM
[2024-10-10] MEDS: CHECK fentaNYL PATCH PLACEMENT SCH (16:48)
[2024-10-10] MEDS: DAPTOmycin 350 MG in SYRINGE 0 ML IV SCH (16:48)
--- NOTE | 2024-10-10 18:01 | Palliative Care Progress Note ---
Date of Service October 10, 2024 Assessment & Plan (1) Chronic pain: Plan: pt came to ED for intractable severe pain in LLE, groin, and L flank: Home regimen Oxy IR 20mg approx 8-10 daily, no relief Prior methadone was stopped by pt at low dose because "it didn't help at all" She has a long hx of stopping meds when she feels they do not help and then she will also delay her own care, to her own detriment She has a prior substance abuse history in distant past and is opioid tolerant +manipulative behaviors, splitting teams At home pt was using oral oxycodone 160 - 200mg daily without relief 200mg oxy = 400mg oral MS equivalents (OMEs) 400mg PO MS = 133mg IV MS = dilaudid 27mg IV daily equivalent we began transition to TDF earlier this week Today, I will add back oral Oxy IR At a higher dose, I will stop Dilaudid CLINICAL IMPLEMENTATION SPECIALIST and leave a back up prn IV Dilaudid but not change dose It is noted she has used far less Dilaudid this infusion when given CLINICAL IMPLEMENTATION SPECIALIST feature and pain has been reasonably managed Today's adjustments: TDF increased to 75mcg q72hr Stopped Dilaudid to 0.1mg CLINICAL IMPLEMENTATION SPECIALIST q30min prn Oxy IR 30mg PO q4h prn BTP and back up Dilaudid 0.1mg IV q1h prn Very severe pain unrelieved by oral/Hold for somnolence or RR less than 14; please document RR with each dose administration. New painful lump left axilla - for US (2) Advanced care planning/counseling discussion: Plan: A FACE TO FACE ACP MEETING WAS HELD AT BEDSIDE FOR 20 MIN WITH Liliana She wants to work towards going home She hopes PCP will manage pain but states if needed she will come to OP Pall med clinic We discussed SNF rehab post covid. she is unwilling but we discussed proc/cons and how weak she has become over the past few weeks She agrees to think about it this weekend (3) Palliative care by specialist: Plan: Palliative care continues to follow for pain/symptom mgmt and ACP. (4) Nausea & vomiting: Plan: Improving She is also having occasional liquid stool Continue IV Compazine and prn Zofran 4mg IVP q6h scheduled Zofran and compazine administration should be off set so that an antiemetic is given every three hours, (ie. Zofran 3-9-3-9 AND compazine 6-12-6-12) (5) Therapeutic opioid-induced constipation (OIC): Plan: not currently an issue, pt c/o liquid stool Plan As above This patient will benefit from clear consistent communication across disciplines. it is important for all providers to maintain a unified approach, delivering tanner information in a consistent and direct manner. Attempts to assign blame or introduce misconceptions should be met with a neutral and factual response. A collaborative, non-confrontational approach will help foster a therapeutic relationship, and it is essential to avoid blaming the patient for her challenges. This approach will improve communication and support more effective engagement with her care. Thank you for allowing us to participate in the ongoing care of this patient. Please page with any additional concerns. Ree Driscoll DNP Director, Palliative Medicine Admission and Anticipated Discharge Date Admission Date: October 01, 2024 Subjective pain ok but not great want sot begin transitioning to oral and willing to titrate up TDF appetite better new complaint: L axilla pain with hard hot lump, states she had this a year ago "and i was rushed to surgery" very tender and hurting from axilla to left inner upper arm no fever no cough no n/v bowels still a little loose Review of Systems Review of Systems: All systems reviewed & are unremarkable except as noted in Subjective Physical Exam Constitutional: + ill appearing, + thin, + physical limi tations and cooperative Eyes: PERRL, conjunctivae normal, anicteric sclerae ENMT: Mouth: + poor dentition Neck: normal visual inspection and trachea midline Respiratory: normal respiratory effort, lungs clear to auscultation Cardiovascular: Rate/Rhythm: regular rate and regular rhythm Vessels: dorsalis pedis pulses present Extremities: normal capillary refill; no edema Gastrointestinal (Abdomen): normal bowel sounds, soft, nontender, no hepatosplenomegaly Musculoskeletal: Right BKA, otherwise GONZALES with strength and purpose LLE cool, mild bluish discoloration and blanching on sole of left foot, +amputated toes left foot Neurologic: PERRL, EOMI, accommodation nl, no face palsy, no dysarthria Psychiatric: Orientation: alert and oriented x 3 Affect: + anxious affect Mood: + anxious mood Results & Data Vital Signs (Past 12 Hours) Vital Signs Temp Pulse Resp BP Pulse Ox O2 Del Method O2 Flow Rate 10/10/24 16:16 36.5 C 64 16 168/74 H 93 Room Air 10/10/24 08:45 Nasal Cannula 2 10/10/24 07:51 37 C 61 16 125/66 100 Nasal Cannula 2 Laboratory Results 10/10/24 10/10/24 10/10/24 Range/Units 16:48 15:25 11:25 WBC 11.03 H (4.8-10.8) K/ul RBC 5.01 (4.20-5.40) M/uL Hgb 12.0 (12.0-16.0) g/dl Hct 37.9 (37.0-47.0) % MCV 75.6 L (80.0-100.0) fL MCH 24.0 L (25.0-34.0) pg MCHC 31.7 L (32.0-36.0) g/dL RDW Std Deviation 48.1 H (36.4-46.3) fL RDW Coeff of Maria Del Carmen 17.7 H (11.5-14.5) % Plt Count 292 (130-400) K/uL MPV 9.7 (9.4-12.4) fL Immature Gran % (Auto) 0.3 % Neut % (Auto) 62.1 % Lymph % (Auto) 24.1 % Delta % (Auto) 8.7 % Eos % (Auto) 4.3 % Baso % (Auto) 0.5 % Neut # (Auto) 6.86 H (1.40-6.50) K/uL Lymph # (Auto) 2.66 (1.20-3.40) K/uL Delta # (Auto) 0.96 H (0.11-0.59) K/uL Eos # (Auto) 0.47 (0.00-0.50) K/uL Baso # (Auto) 0.05 (0.00-0.20) K/uL Immature Gran # (Auto) 0.03 (0.01-0.20) K/uL Sodium 137 (136-145) mmol/L Potassium 4.8 (3.5-5.1) mmol/L Chloride 99 (98-107) mmol/L Carbon Dioxide 32 (21-32) mmol/L Anion Gap 6 (3-11) BUN 20 (6-23) mg/dl Creatinine 0.69 (0.6-1.2) mg/dl Est Cr Clr Drug Dosing 68.6 ml/min eGFR 99.29 BUN/Creatinine Ratio 29.0 H (10-20) Glucose 120 H (70-99(Fasting)) mg/dl POC Glucose 203 H 86 (70-99) mg/dl Estimat Average Glucose mg/dl Hemoglobin A1c (4.5-5.6) % Calcium 9.1 (8.6-10.3) mg/dl Total Bilirubin 0.2 (0.2-1.0) mg/dl AST 12 L (13-39) U/L ALT 15 (7-52) U/L Alkaline Phosphatase 48 (34-104) U/L C-Reactive Protein < 0.50 (0-0.5) mg/dl Total Protein 6.1 (6.0-8.3) gm/dl Albumin 3.9 (3.4-5.0) gm/dl Globulin 2.2 L (2.5-4.0) gm/dl Albumin/Globulin Ratio 1.8 (0.9-2) Procalcitonin (0-0.5) ng/ml 10/10/24 10/09/24 10/09/24 Range/Units 07:46 20:02 16:53 WBC (4.8-10.8) K/ul RBC (4.20-5.40) M/uL Hgb (12.0-16.0) g/dl Hct (37.0-47.0) % MCV (80.0-100.0) fL MCH (25.0-34.0) pg MCHC (32.0-36.0) g/dL RDW Std Deviation (36.4-46.3) fL RDW Coeff of Maria Del Carmen (11.5-14.5) % Plt Count (130-400) K/uL MPV (9.4-12.4) fL Immature Gran % (Auto) % Neut % (Auto) % Lymph % (Auto) % Delta % (Auto) % Eos % (Auto) % Baso % (Auto) % Neut # (Auto) (1.40-6.50) K/uL Lymph # (Auto) (1.20-3.40) K/uL Delta # (Auto) (0.11-0.59) K/uL Eos # (Auto) (0.00-0.50) K/uL Baso # (Auto) (0.00-0.20) K/uL Immature Gran # (Auto) (0.01-0.20) K/uL Sodium (136-145) mmol/L Potassium (3.5-5.1) mmol/L Chloride (98-107) mmol/L Carbon Dioxide (21-32) mmol/L Anion Gap (3-11) BUN (6-23) mg/dl Creatinine (0.6-1.2) mg/dl Est Cr Clr Drug Dosing ml/min eGFR BUN/Creatinine Ratio (10-20) Glucose (70-99(Fasting)) mg/dl POC Glucose 178 H 102 H 122 H (70-99) mg/dl Estimat Average Glucose mg/dl Hemoglobin A1c (4.5-5.6) % Calcium (8.6-10.3) mg/dl Total Bilirubin (0.2-1.0) mg/dl AST (13-39) U/L ALT (7-52) U/L Alkaline Phosphatase (34-104) U/L C-Reactive Protein (0-0.5) mg/dl Total Protein (6.0-8.3) gm/dl Albumin (3.4-5.0) gm/dl Globulin (2.5-4.0) gm/dl Albumin/Globulin Ratio (0.9-2) Procalcitonin (0-0.5) ng/ml 10/09/24 10/09/24 10/08/24 Range/Units 11:35 07:47 20:11 WBC (4.8-10.8) K/ul RBC (4.20-5.40) M/uL Hgb (12.0-16.0) g/dl Hct (37.0-47.0) % MCV (80.0-100.0) fL MCH (25.0-34.0) pg MCHC (32.0-36.0) g/dL RDW Std Deviation (36.4-46.3) fL RDW Coeff of Maria Del Carmen (11.5-14.5) % Plt Count (130-400) K/uL MPV (9.4-12.4) fL Immature Gran % (Auto) % Neut % (Auto) % Lymph % (Auto) % Delta % (Auto) % Eos % (Auto) % Baso % (Auto) % Neut # (Auto) (1.40-6.50) K/uL Lymph # (Auto) (1.20-3.40) K/uL Delta # (Auto) (0.11-0.59) K/uL Eos # (Auto) (0.00-0.50) K/uL Baso # (Auto) (0.00-0.20) K/uL Immature Gran # (Auto) (0.01-0.20) K/uL Sodium (136-145) mmol/L Potassium (3.5-5.1) mmol/L Chloride (98-107) mmol/L Carbon Dioxide (21-32) mmol/L Anion Gap (3-11) BUN (6-23) mg/dl Creatinine (0.6-1.2) mg/dl Est Cr Clr Drug Dosing ml/min eGFR BUN/Creatinine Ratio (10-20) Glucose (70-99(Fasting)) mg/dl POC Glucose 137 H 127 H 125 H (70-99) mg/dl Estimat Average Glucose mg/dl Hemoglobin A1c (4.5-5.6) % Calcium (8.6-10.3) mg/dl Total Bilirubin (0.2-1.0) mg/dl AST (13-39) U/L ALT (7-52) U/L Alkaline Phosphatase (34-104) U/L C-Reactive Protein (0-0.5) mg/dl Total Protein (6.0-8.3) gm/dl Albumin (3.4-5.0) gm/dl Globulin (2.5-4.0) gm/dl Albumin/Globulin Ratio (0.9-2) Procalcitonin (0-0.5) ng/ml 10/08/24 10/08/24 10/08/24 Range/Units 17:07 11:50 07:57 WBC (4.8-10.8) K/ul RBC (4.20-5.40) M/uL Hgb (12.0-16.0) g/dl Hct (37.0-47.0) % MCV (80.0-100.0) fL MCH (25.0-34.0) pg MCHC (32.0-36.0) g/dL RDW Std Deviation (36.4-46.3) fL RDW Coeff of Maria Del Carmen (11.5-14.5) % Plt Count (130-400) K/uL MPV (9.4-12.4) fL Immature Gran % (Auto) % Neut % (Auto) % Lymph % (Auto) % Delta % (Auto) % Eos % (Auto) % Baso % (Auto) % Neut # (Auto) (1.40-6.50) K/uL Lymph # (Auto) (1.20-3.40) K/uL Delta # (Auto) (0.11-0.59) K/uL Eos # (Auto) (0.00-0.50) K/uL Baso # (Auto) (0.00-0.20) K/uL Immature Gran # (Auto) (0.01-0.20) K/uL Sodium (136-145) mmol/L Potassium (3.5-5.1) mmol/L Chloride (98-107) mmol/L Carbon Dioxide (21-32) mmol/L Anion Gap (3-11) BUN (6-23) mg/dl Creatinine (0.6-1.2) mg/dl Est Cr Clr Drug Dosing ml/min eGFR BUN/Creatinine Ratio (10-20) Glucose (70-99(Fasting)) mg/dl POC Glucose 134 H 131 H 136 H (70-99) mg/dl Estimat Average Glucose mg/dl Hemoglobin A1c (4.5-5.6) % Calcium (8.6-10.3) mg/dl Total Bilirubin (0.2-1.0) mg/dl AST (13-39) U/L ALT (7-52) U/L Alkaline Phosphatase (34-104) U/L C-Reactive Protein (0-0.5) mg/dl Total Protein (6.0-8.3) gm/dl Albumin (3.4-5.0) gm/dl Globulin (2.5-4.0) gm/dl Albumin/Globulin Ratio (0.9-2) Procalcitonin (0-0.5) ng/ml 10/08/24 10/07/24 10/07/24 Range/Units 07:20 20:57 17:10 WBC (4.8-10.8) K/ul RBC (4.20-5.40) M/uL Hgb (12.0-16.0) g/dl Hct (37.0-47.0) % MCV (80.0-100.0) fL MCH (25.0-34.0) pg MCHC (32.0-36.0) g/dL RDW Std Deviation (36.4-46.3) fL RDW Coeff of Maria Del Carmen (11.5-14.5) % Plt Count (130-400) K/uL MPV (9.4-12.4) fL Immature Gran % (Auto) % Neut % (Auto) % Lymph % (Auto) % Delta % (Auto) % Eos % (Auto) % Baso % (Auto) % Neut # (Auto) (1.40-6.50) K/uL Lymph # (Auto) (1.20-3.40) K/uL Delta # (Auto) (0.11-0.59) K/uL Eos # (Auto) (0.00-0.50) K/uL Baso # (Auto) (0.00-0.20) K/uL Immature Gran # (Auto) (0.01-0.20) K/uL Sodium (136-145) mmol/L Potassium (3.5-5.1) mmol/L Chloride (98-107) mmol/L Carbon Dioxide (21-32) mmol/L Anion Gap (3-11) BUN (6-23) mg/dl Creatinine 0.43 L (0.6-1.2) mg/dl Est Cr Clr Drug Dosing 110.0 ml/min eGFR 111.28 BUN/Creatinine Ratio (10-20) Glucose (70-99(Fasting)) mg/dl POC Glucose 129 H 105 H (70-99) mg/dl Estimat Average Glucose mg/dl Hemoglobin A1c (4.5-5.6) % Calcium (8.6-10.3) mg/dl Total Bilirubin (0.2-1.0) mg/dl AST (13-39) U/L ALT (7-52) U/L Alkaline Phosphatase (34-104) U/L C-Reactive Protein (0-0.5) mg/dl Total Protein (6.0-8.3) gm/dl Albumin (3.4-5.0) gm/dl Globulin (2.5-4.0) gm/dl Albumin/Globulin Ratio (0.9-2) Procalcitonin (0-0.5) ng/ml 10/07/24 10/07/24 10/07/24 Range/Units 12:13 08:20 04:44 WBC (4.8-10.8) K/ul RBC (4.20-5.40) M/uL Hgb (12.0-16.0) g/dl Hct (37.0-47.0) % MCV (80.0-100.0) fL MCH (25.0-34.0) pg MCHC (32.0-36.0) g/dL RDW Std Deviation (36.4-46.3) fL RDW Coeff of Maria Del Carmen (11.5-14.5) % Plt Count (130-400) K/uL MPV (9.4-12.4) fL Immature Gran % (Auto) % Neut % (Auto) % Lymph % (Auto) % Delta % (Auto) % Eos % (Auto) % Baso % (Auto) % Neut # (Auto) (1.40-6.50) K/uL Lymph # (Auto) (1.20-3.40) K/uL Delta # (Auto) (0.11-0.59) K/uL Eos # (Auto) (0.00-0.50) K/uL Baso # (Auto) (0.00-0.20) K/uL Immature Gran # (Auto) (0.01-0.20) K/uL Sodium (136-145) mmol/L Potassium (3.5-5.1) mmol/L Chloride (98-107) mmol/L Carbon Dioxide (21-32) mmol/L Anion Gap (3-11) BUN (6-23) mg/dl Creatinine (0.6-1.2) mg/dl Est Cr Clr Drug Dosing ml/min eGFR BUN/Creatinine Ratio (10-20) Glucose (70-99(Fasting)) mg/dl POC Glucose 107 H 127 H (70-99) mg/dl Estimat Average Glucose 143 mg/dl Hemoglobin A1c 6.6 H (4.5-5.6) % Calcium (8.6-10.3) mg/dl Total Bilirubin (0.2-1.0) mg/dl AST (13-39) U/L ALT (7-52) U/L Alkaline Phosphatase (34-104) U/L C-Reactive Protein (0-0.5) mg/dl Total Protein (6.0-8.3) gm/dl Albumin (3.4-5.0) gm/dl Globulin (2.5-4.0) gm/dl Albumin/Globulin Ratio (0.9-2) Procalcitonin (0-0.5) ng/ml 10/06/24 10/06/24 10/05/24 Range/Units 21:13 05:48 05:40 WBC 10.46 13.56 H (4.8-10.8) K/ul RBC 5.61 H 5.66 H (4.20-5.40) M/uL Hgb 13.5 13.3 (12.0-16.0) g/dl Hct 40.8 41.4 (37.0-47.0) % MCV 72.7 L 73.1 L (80.0-100.0) fL MCH 24.1 L 23.5 L (25.0-34.0) pg MCHC 33.1 32.1 (32.0-36.0) g/dL RDW Std Deviation 42.7 43.8 (36.4-46.3) fL RDW Coeff of Maria Del Carmen 16.5 H 17.0 H (11.5-14.5) % Plt Count 366 342 (130-400) K/uL MPV 9.7 10.0 (9.4-12.4) fL Immature Gran % (Auto) 0.5 % Neut % (Auto) 77.1 % Lymph % (Auto) 15.9 % Delta % (Auto) 6.3 % Eos % (Auto) 0.1 % Baso % (Auto) 0.1 % Neut # (Auto) 10.46 H (1.40-6.50) K/uL Lymph # (Auto) 2.15 (1.20-3.40) K/uL Delta # (Auto) 0.85 H (0.11-0.59) K/uL Eos # (Auto) 0.01 (0.00-0.50) K/uL Baso # (Auto) 0.02 (0.00-0.20) K/uL Immature Gran # (Auto) 0.07 (0.01-0.20) K/uL Sodium 135 L 133 L (136-145) mmol/L Potassium 3.7 3.4 L (3.5-5.1) mmol/L Chloride 102 100 (98-107) mmol/L Carbon Dioxide 27 27 (21-32) mmol/L Anion Gap 6 6 (3-11) BUN 14 24 H (6-23) mg/dl Creatinine 0.41 L 0.43 L (0.6-1.2) mg/dl Est Cr Clr Drug Dosing 115.4 110.0 ml/min eGFR 112.56 111.28 BUN/Creatinine Ratio 34.1 H 55.8 H (10-20) Glucose 130 H 136 H (70-99(Fasting)) mg/dl POC Glucose 128 H (70-99) mg/dl Estimat Average Glucose mg/dl Hemoglobin A1c (4.5-5.6) % Calcium 9.0 8.7 (8.6-10.3) mg/dl Total Bilirubin (0.2-1.0) mg/dl AST (13-39) U/L ALT (7-52) U/L Alkaline Phosphatase (34-104) U/L C-Reactive Protein < 0.50 (0-0.5) mg/dl Total Protein (6.0-8.3) gm/dl Albumin (3.4-5.0) gm/dl Globulin (2.5-4.0) gm/dl Albumin/Globulin Ratio (0.9-2) Procalcitonin < 0.02 (0-0.5) ng/ml 10/04/24 10/04/24 Range/Units 11:09 06:27 WBC 12.38 H (4.8-10.8) K/ul RBC 5.94 H (4.20-5.40) M/uL Hgb 14.3 (12.0-16.0) g/dl Hct 43.4 (37.0-47.0) % MCV 73.1 L (80.0-100.0) fL MCH 24.1 L (25.0-34.0) pg MCHC 32.9 (32.0-36.0) g/dL RDW Std Deviation 43.7 (36.4-46.3) fL RDW Coeff of Maria Del Carmen 17.2 H (11.5-14.5) % Plt Count 363 (130-400) K/uL MPV 10.2 (9.4-12.4) fL Immature Gran % (Auto) % Neut % (Auto) % Lymph % (Auto) % Delta % (Auto) % Eos % (Auto) % Baso % (Auto) % Neut # (Auto) (1.40-6.50) K/uL Lymph # (Auto) (1.20-3.40) K/uL Delta # (Auto) (0.11-0.59) K/uL Eos # (Auto) (0.00-0.50) K/uL Baso # (Auto) (0.00-0.20) K/uL Immature Gran # (Auto) (0.01-0.20) K/uL Sodium 133 L (136-145) mmol/L Potassium 3.6 (3.5-5.1) mmol/L Chloride 97 L (98-107) mmol/L Carbon Dioxide 27 (21-32) mmol/L Anion Gap 9 (3-11) BUN 17 (6-23) mg/dl Creatinine 0.46 L (0.6-1.2) mg/dl Est Cr Clr Drug Dosing 102.9 ml/min eGFR 109.48 BUN/Creatinine Ratio 37.0 H (10-20) Glucose 164 H (70-99(Fasting)) mg/dl POC Glucose 186 H (70-99) mg/dl Estimat Average Glucose mg/dl Hemoglobin A1c (4.5-5.6) % Calcium 9.3 (8.6-10.3) mg/dl Total Bilirubin (0.2-1.0) mg/dl AST (13-39) U/L ALT (7-52) U/L Alkaline Phosphatase (34-104) U/L C-Reactive Protein (0-0.5) mg/dl Total Protein (6.0-8.3) gm/dl Albumin (3.4-5.0) gm/dl Globulin (2.5-4.0) gm/dl Albumin/Globulin Ratio (0.9-2) Procalcitonin (0-0.5) ng/ml Diagnostic Findings Lower Extremity CTA 10/01/24 14:21 CT ANGIOGRAPHY OF THE LEFT LOWER EXTREMITY CLINICAL HISTORY: Groin pain down to foot, hx of PAD. COMPARISON STUDY: Left lower extremity arterial Doppler ultrasound December 30, 2023. CTA with runoff July 14, 2021. CTA of the abdomen and pelvis July 01, 2024. TECHNIQUE: Helical axial images of the mid to lower abdomen, pelvis and left lower extremity were obtained during arterial phase following intravenous injection 120 cc of Optiray 320 IV. Sagittal and coronal reconstructions were viewed as well as maximal intensity projections on an independent 3-D workstation. Automated exposure control was utilized for the study. A dose lowering technique was utilized adhering to the principles of ALARA. FINDINGS: Visualized portions of the liver are unremarkable on arterial phase exam. There is no biliary ductal dilatation status post cholecystectomy. Spleen, adrenal glands and pancreas are unremarkable. There is no evidence for a bowel obstruction. The caliber and wall thickness of small and large bowel are normal. There are postoperative findings within the spine. There is no abdominal lymphadenopathy. No fluid collections are present. Postoperative findings consistent with right below-knee amputation. There is extensive plaque with multifocal stenoses within the right lower extremity vasculature. There is extensive atherosclerotic plaque within the abdominal aorta. No abdominal aortic aneurysm is present. Branch vessels are patent. There is extensive plaque within the left lower extremity vasculature. The left common iliac artery is patent. There is mild stenosis of the left external iliac artery. There is moderate stenosis of the left common femoral artery. There are moderate multifocal stenoses within the left superficial femoral artery. The left popliteal artery is patent. There is occlusion of the proximal left anterior tibial artery with distal reconstitution. The left dorsalis pedis is patent. The left peroneal artery is patent to the level of the syndesmosis. Multifocal stenoses of the left posterior tibial artery are present with occlusion and distal reconstitution. There is trace flow within the distal left posterior tibial artery. IMPRESSION: 1. Extensive atherosclerotic plaque within the left lower extremity. 2. Moderate multifocal stenoses within the left superficial femoral artery. 3. Occlusion of the proximal left anterior tibial artery which is new since CT of July 14, 2021. Distal reconstitution with patent left dorsalis pedis. 4. Occlusion of the distal left posterior tibial artery with distal reconstitution. Overall, significantly diminished flow within the left calf vessels. 5. Extensive plaque within the abdominal aorta. No aneurysm or stenosis within the abdominal aorta. Patent left common iliac artery. 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 6. Status post right below knee amputation. ACT 112: Negative or not required by law. Electronically signed by: Wilver Powell M.D. 10/01/2024 4:38 PM Ankle Brachial Index 10/02/24 13:56 Clinical history: Left foot pain. 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 A right NATHAN is therefore not possible The left NATHAN is diminished at 0.82. Blood flow could not be detected within the left toes Impression: 1. Diminished left NATHAN at 0.82. This is indicative of mild to moderate severity peripheral arterial disease 2. Lack of detectable blood flow within the left toes, which could be due to distal arterial occlusion Electronically signed by Jose Jones 10-02-2024 4:17 PM Axilla US 10/10/24 14:05 US axilla LT CLINICAL HISTORY: mass,assess for abscess vs lymphadenopathy COMPARISON STUDY: Chest CT of 06/30/2024. FINDINGS: At the site of palpable complaint at the left axilla there is a 1.6 cm greatest dimension wider than tall hypoechoic finding in the superficial soft tissues just deep to the skin with possible peripheral vascular flow. There is a similar nearby superficial finding measuring 8 mm. There is an adjacent area of edematous appearing tissue measuring approximately 5 cm greatest dimension. No abscess seen. IMPRESSION: 1. Findings at the left axilla are nonspecific. There is a 5 cm area of edematous appearing tissue suggesting cellulitis. 2. Nonspecific superficial findings could represent reactive lymph nodes or inflamed sebaceous cysts. Clinical follow-up is recommended. If the clinical findings do not improve, follow-up imaging and consideration of biopsy would be suggested. ACT 112: Positive. There are findings on this exam that require communication between the performing entity and the patient following Patient Test Result Information Act ([place] Act 112) guidelines. Electronically signed by: Anil Gunter M.D. 10/10/2024 4:08 PM PG Care Time/CCT Total # of Minutes Spent Total Time Spent with Patient: Total time spent is greater than 50% in coordination of care (as documented) at patient's floor/unit and/or counseling patient: I spent 70 minutes overall addressing this case: 10 min in medical data review/discussion with referring provider(s) and/or preparation for the visit 15 min in direct interaction with the patient/exam 20 min in Advance Care Planning/Goals of Care discussions as detailed above in note (must be >16min) 10 min in subsequent review and synthesis of assessment and plan 15 min communicating with other providers regarding the patient's case: nursing, primary, care mgt Advanced Care Planning 91973 Advanced Care Planning 30 Min [place] [address] SUB INP/OBS CARE 3/50MIN (25 - SIGNIFICANT, SEPARATELY IDENTIFIABLE ) Patient Type Established Medical Decision Making High Complexity Diagnoses Chronic pain syndrome G89.4 Chronic pain type: chronic pain syndrome Advanced care planning/counseling discussion Z71.89 Palliative care by specialist Z51.5 Nausea & vomiting R11.2 Vomiting type: unspecified Therapeutic opioid-induced constipation (OIC) K59.03; [id number] Additional Codes Advanced Care Planning - 80828 Advanced Care Planning 30 Min: [id number] Advanced Care Planning 30 Min ([id number]) (1) Chronic pain Chronic pain type: chronic pain syndrome Qualified Code(s): G89.4 - Chronic pain syndrome (4) Nausea & vomiting Vomiting type: unspecified Qualified Code(s): R11.2 - Nausea with vomiting, unspecified
[2024-10-10] MEDS: HYDROmorphone INJ 0.5 MG/0.5 ML SYR IV STA (22:56)
[2024-10-11 06:55] LABS: Basophils # (auto) 0.05 K/uL (0.00-0.20); Basophils % (auto) 0.5 %; Eosinophils # (auto) 0.34 K/uL (0.00-0.50); Eosinophils % (auto) 3.5 %; Hematocrit (blood only) 35.9 % (37.0-47.0); Hemoglobin 11.3 g/dl (12.0-16.0); Immature Granulocytes # (auto) 0.03 K/uL (0.01-0.20); Immature Granulocytes % (auto) 0.3 %; Lymphocytes # (auto) 2.41 K/uL (1.20-3.40); Mean Corpuscular Hemoglobin 23.8 pg (25.0-34.0); Mean Corpuscular Hgb Conc 31.5 g/dL (32.0-36.0); Mean Corpuscular Volume 75.7 fL (80.0-100.0); Mean Platelet Volume 10.2 fL (9.4-12.4); Monocytes # (auto) 0.95 K/uL (0.11-0.59); Monocytes % (auto) 9.8 %; Neutrophils # (auto) 5.87 K/uL (1.40-6.50); Neutrophils % (auto) 60.9 %; Platelet Count 289 K/uL (130-400); RDW Coefficient of Variation 17.6 % (11.5-14.5); RDW Standard Deviation 48.2 fL (36.4-46.3); Red Blood Count 4.74 M/uL (4.20-5.40); White Blood Count 9.65 K/ul (4.8-10.8)
[2024-10-11 07:08] LABS: BUN Creatinine Ratio 41.5 (10-20); Calcium 9.3 mg/dl (8.6-10.3); Creatinine Clr Calc Pharmacy 72.8 ml/min; Potassium 4.7 mmol/L (3.5-5.1)
[2024-10-11 07:28] LABS: Ferritin 24.2 ng/ml (8-388)
[2024-10-11] MEDS: HYDROmorphone INJ 0.5 MG/0.5 ML SYR IV STA (14:37)
--- NOTE | 2024-10-11 16:03 | Hospitalist Progress Note ---
Date of Service October 11, 2024 Assessment & Plan (1) Chronic pain: (2) SARS-CoV-2 positive: Plan #Chronic pain: Her pain is similar to what has been described in the past (most notably during February admission 2023) in her left groin and radiating down her lef t leg and now also in right groin and down thigh. This has been evaluated by vascular, ortho spine, orthopedics, OBGYN, surgery and pain management previously. She has a significant history of pain out of proportion to her clinical findings which a significant amount of the time no pathology is found. She usually requests Dilaudid as an inpatient with ever escalating doses and frequency which has essentially led us to this point where she is chronically reliant on opiates to maintain the status quo and she has nothing to help when the pain is worse than usual. The pain is not consistent with ischemia, she has been seen by vascular medicine Dr Lin in December 2023 and again this admission for similar pain and not suspected to be due to ischemia and she has good dorsalis pedis pulse on palpation. Her left foot is cool but with good capillary refill. CTA 10/01/24 shows some progression of PAD To LLE #PAD on aspirin and plavix She has been on numerous different long and short acting opioids to include MS COntin, Morphine, and methadone, Fentanyl patch I do not feel there is any acute pathology at this time and the goal is to get her chronic pain under control with palliative care - pain management previously performed ilioinguinal nerve block, and per hospitalist notes she did have some relief with the ilioinguinal block-consulted pain management and no further procedures offered This is neuropathic pain have transitioned off dilaudid animal sitter back to low doses of prn bolus dilaudid Pain improved also with increased dose of Lyrica Seen multiple times by Palliative Med and now started Fentanyl patch as able to wean off dilaudid [employer]IST -increase Fentanyl patch to 75 mcg, add po oxycodone 30mg for breakthrough pain and backup of IV dilaudid prn -Continue Lyrica at increased dose of 150mg po tid -Continue duloxetine #Left axillary lymphadenitis and cellulitis-developed acute onset of painful swollen lumps in left axilla on 10/10. Suspect lymphadenitis but could be small abscess also - US left axilla lymphadenopathy, consider hydradenitis no abscess - Daptomycin for Staph and Strep coverage #Opioid-induced constipation- ongoing -continue scheduled sennakot and Miralax once daily #COVID-19/Nausea-She reports having fevers at home, nausea/vomiting, and diarrhea. Diarrhea now improved, appetite remains low and nausea comes and goes but is improved with increasing Abilify dose isolation precautions in place continue zofran prn, compazine prn (no doses used), ativan for nausea Increased Abilify to 5mg po qAM which can help with nausea-improved #Anxiety/Insomnia-continue hydroxyzine, duloxetine, IV ativan, holding home xanax prn -continue increased dose of Abilify 5mg po qAM -increased Seroquel to 50mg po hs for depression and for sleep #Peripheral artery disease - no acute issues, seen by Vascular Medicine here -continue aspirin, clopidogrel #HTN - BPs elevated at times but could be from pain, anxiety -continue clonidine but switched pillls to a patch -continue hydralazine, lisinopril #DMII-is on Lantus and Novolog, A1C well controlled here at 6.6% Continue BSGs, ADA diet VTE Prophylaxis - Lovenox 40mg SQ daily Disposition - continued stay med/surg, -Nurse Navigator will need to do a prior auth for Fentanyl patch once home dose determined Admission and Anticipated Discharge Date Admission Date: October 01, 2024 Subjective pt has persistent left leg pain and cold feeling has erythema and lymph node enlargement to left axilla, is on daptomycin Physical Exam Physical Exam: pleasant left leg has 3-4 second capillary refill, cool to touch but not with blanching Results & Data Results & Data Vital Signs (Past 12 Hours) Vital Signs Temp Pulse Resp BP Pulse Ox O2 Del Method 10/11/24 15:10 98.2 F 62 16 122/64 96 Room Air 10/11/24 08:02 98.2 F 70 16 158/63 H 93 Room Air PG Care Time/CCT Total # of Minutes Spent Total Time Spent with Patient: Total time spent is greater than 50% in coordination of care (as documented) at patient's floor/unit and/or counseling patient: Coding Level of Care Code 39156 SUB INP/OBS CARE 3/50MIN Diagnoses Chronic pain G89.29 Chronic pain type: other chronic pain SARS-CoV-2 positive U07.1 (1) Chronic pain Chronic pain type: other chronic pain Qualified Code(s): G89.29 - Other chronic pain
[2024-10-11] MEDS: PENTOXIFYLLINE 400MG EXT REL TAB PO SCH (20:25)
[2024-10-12] MEDS: HYDROmorphone INJ 0.5 MG/0.5 ML SYR IV STA (14:53)
[2024-10-12] MEDS: levoFLOXacin/D5W 750 MG/150 ML BAG IV SCH (14:54)
--- NOTE | 2024-10-12 14:58 | Hospitalist Progress Note ---
Date of Service October 12, 2024 Assessment & Plan (1) Chronic pain: (2) SARS-CoV-2 positive: Plan 59-year-old female with a history of chronic pain. Significant peripheral artery disease and diabetic neuropathy. 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 Patient has seen pain management and multiple other specialties. She is at times had vascular procedures to improve blood flow without great improvement in her pain. Patient has failed an ilio inguinal nerve block in the past she presents once again with her chronic left leg pain requiring parenteral opiate therapy #Chronic pain: Her pain is similar to what has been described in the past. 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 The pain is not consistent with ischemia, she has been seen by vascular medicine Dr Lin in December 2023 and again this admission for similar pain and not suspected to be due to ischemia and she has good dorsalis pedis pulse on palpation. Her left foot is cool but with good capillary refill. CTA 10/01/24 shows some progression of PAD To LLE Patient has failed different long and short acting opioids to include MS Contin, Morphine, and methadone, Fentanyl patch Etiology is most likely neuropathic and ischemic pain with parts of this likely being hyperalgesia Current regimen includes a fentanyl patch, Lyrica 150 3 times daily, duloxetine, breakthrough pain control with oxycodone and intravenous hydromorphone Palliative medicine is assisting with her chronic pain management #PAD on aspirin and plavix we added Pentoxil filing to try to improve circulation in case her pain is from any ischemia. #Left axillary lymphadenitis and cellulitis-developed acute onset of painful swollen lumps in left axilla on 10/10. Suspect lymphadenitis - Daptomycin for Staph and Strep coverage, slight progression adding levofloxacin to cover gram-negative's #Opioid-induced constipation- ongoing -continue scheduled sennakot and Miralax once daily #COVID-19/Nausea-She reports having fevers at home, nausea/vomiting, and diarrhea. Diarrhea now improved, appetite remains low and nausea comes and goes but is improved with increasing Abilify dose Patient has transition through isolation therapy is now off of COVID isolation continue zofran prn, compazine prn (no doses used), ativan for nausea Increased Abilify to 5mg po qAM which can help with nausea-improved #Anxiety/Insomnia-continue hydroxyzine, duloxetine, IV ativan, holding home xanax prn -continue increased dose of Abilify 5mg po qAM -increased Seroquel to 50mg po hs for depression and for sleep #Peripheral artery disease - no acute issues, seen by Vascular Medicine here -continue aspirin, clopidogrel #HTN - BPs elevated at times but could be from pain, anxiety -continue clonidine but switched pillls to a patch -continue hydralazine, lisinopril #DMII-is on Lantus and Novolog, A1C well controlled here at 6.6% Continue BSGs, ADA diet VTE Prophylaxis - Lovenox 40mg SQ daily Disposition - continued stay med/surg, -Nurse Navigator will need to do a prior auth for Fentanyl patch once home dose determined Admission and Anticipated Discharge Date Admission Date: October 01, 2024 Subjective pt has persistent left axilla pain and redness that has expanded despite an tibiotics leg pain is still persistent did not have a big improvement with pentoxyfiline Physical Exam Physical Exam: pleasant axilla is reddened, tender, cw infection left leg has 3-4 second capillary refill, cool to touch but not with blanching Results & Data Results & Data Vital Signs (Past 12 Hours) Vital Signs Temp Pulse Resp BP Pulse Ox O2 Del Method 10/12/24 06:58 98.2 F 70 18 179/77 H 96 Room Air PG Care Time/CCT Total # of Minutes Spent Total Time Spent with Patient: Total time spent is greater than 50% in coordination of care (as documented) at patient's floor/unit and/or counseling patient: Coding Level of Care Code 49723 SUB INP/OBS CARE 3/50MIN Diagnoses Chronic pain G89.29 Chronic pain type: other chronic pain SARS-CoV-2 positive U07.1 (1) Chronic pain Chronic pain type: other chronic pain Qualified Code(s): G89.29 - Other chronic pain
[2024-10-12] MEDS: PROCHLORPERAZINE 5 MG in SYRINGE 4 ML IV PRN (16:42)
[2024-10-13] MEDS: HYDROmorphone INJ 0.5 MG/0.5 ML SYR IV PRN (14:22)
--- NOTE | 2024-10-13 14:40 | Hospitalist Progress Note ---
Date of Service October 13, 2024 Assessment & Plan (1) Chronic pain: (2) Abscess: (3) SARS-CoV-2 positive: (4) PAD (peripheral artery disease): Plan 59-year-old female with a history of chronic pain. Significant peripheral artery disease and diabetic neuropathy. 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 Patient has seen pain management and multiple other specialties. She has at times had vascular procedures to improve blood flow without great improvement in her pain. Patient has failed an ilio inguinal nerve block in the past. She presents once again with her chronic left leg pain requiring parenteral opiate therapy #Chronic pain: Her pain is similar to what has been described in the past. 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 The pain is not consistent with ischemia, she has been seen by vascular medicine Dr Lin in December 2023 and again this admission for similar pain and not suspected to be due to ischemia and she has good dorsalis pedis pulse on palpation. Her left foot is cool but with good capillary refill. CTA 10/01/24 shows some progression of PAD To LLE Patient has failed different long and short acting opioids to include MS Contin, Morphine, and methadone, Fentanyl patch Etiology is most likely neuropathic and ischemic pain with parts of this likely being hyperalgesia Current regimen includes a fentanyl patch, Lyrica 150 3 times daily, duloxetine, breakthrough pain control with oxycodone and intravenous hydromorphone Palliative medicine is assisting with her chronic pain management-increased IV d ilaudid dose to 0.2mg #PAD -with a h/o right AKA, on aspirin and plavix we added pantoxifylline to try to improve circulation in case her pain is from any ischemia. #Left axillary lymphadenitis/abscess/cellulitis-developed acute onset of painful swollen lumps in left axilla on 10/10. Suspect lymphadenitis initially and now has formed a fluctuant mass in left axilla consistent with abscess. Has been on Daptomycin since 10/10 and Levaquin since 10/12. -continue Dapto and Levaquin -consult Gen Surgery for abscess I&D -continue pain control with same meds #Opioid-induced constipation- ongoing -continue scheduled sennakot and Miralax once daily #COVID-19/Nausea-She reports having fevers at home, nausea/vomiting, and diarrhea. Diarrhea now improved, appetite remains low and nausea comes and goes but is improved with increasing Abilify dose. She is now off of COVID isolation -continue zofran prn, compazine prn (no doses used), ativan for nausea -Increased Abilify to 5mg po qAM which can help with nausea-improved #Anxiety/Insomnia-continue hydroxyzine, duloxetine, IV ativan, holding home xanax prn -continue increased dose of Abilify 5mg po qAM -increased Seroquel to 50mg po hs for depression and for sleep #HTN - BPs normal -continue clonidine but switched pillls to a patch -continue hydralazine, lisinopril #DMII-is on Lantus and Novolog, A1C well controlled here at 6.6% Continue BSGs, ADA diet VTE Prophylaxis - Lovenox 40mg SQ daily-hold in AM in case of surgical drainage Disposition - continued stay med/surg, -Nurse Navigator will need to do a prior auth for Fentanyl patch once home dose determined Admission and Anticipated Discharge Date Admission Date: October 01, 2024 Subjective C/o severe pain in left armpit that kept her up all night. Otherwise, pain in groin matches severity of pain in left axilla. Discussed her care with Palliative Med and with Surgery PA Physical Exam Constitutional: WD/WN, vitals as above Respiratory: normal respiratory effort, lungs clear to auscultation Cardiovascular: RRR, no murmur, no edema Gastrointestinal (Abdomen): normal bowel sounds, soft, nontender, no hepatosplenomegaly Skin: left axilla with 5 x 3 cm area of erythema with fluctuance and exquisite +TTP. Previous palpable enlarged LNs no longer erythematous or tender Psychiatric: Orientation: alert and oriented x 3 Results & Data Results & Data Vital Signs (Past 12 Hours) Vital Signs Temp Pulse Resp BP Pulse Ox O2 Del Method 10/13/24 07:10 36.6 C 66 16 116/61 95 Room Air PG Care Time/CCT Total # of Minutes Spent Total Time Spent with Patient: Total time spent is greater than 50% in coordination of care (as documented) at patient's floor/unit and/or counseling patient: Coding Level of Care Code 94715 SUB INP/OBS CARE 3/50MIN Diagnoses Chronic pain G89.29 Chronic pain type: other chronic pain Abscess L02.91 SARS-CoV-2 positive U07.1 PAD (peripheral artery disease) I73.9 (1) Chronic pain Chronic pain type: other chronic pain Qualified Code(s): G89.29 - Other chronic pain
--- NOTE | 2024-10-13 15:27 | Surgery Consultation ---
Date of Consultation October 13, 2024 Assessment & Plan (1) Abscess: This is a 59yF with a PMH of chronic pain with opioid dependence, anxiety/depression, peripheral artery disease, R BKA who presented to the [facility] on 10/01/24 with left groin/leg pain. Today we have been consulted for concern of left axillary abscess formation. Patient states it just popped up on 10/10. The area was tender for her and it was imaged by US which showed there is a 5 cm area of edematous appearing tissue suggesting cellulitis. The nonspecific superficial findings could represent reactive lymph nodes or inflamed sebaceous cysts. The patient was since started on IV abx, vancomycin with the recent addition of levofloxacin without much improvement. There is to believed more of an area organized with fluctuance consistent with underlying fluid collection/abscess formation. The patient denies any fevers/chills. She does have a history of MRSA. She reports requiring I&D in the OR a couple years ago for right sided abscesses drained by dr. messina. Outside of that episode she has not had any other history of abscesses. Of note, her chart does make mention of a PMH of hidradenitis. The patient denies any recent trauma to the area, injuries with shaving, bug bites, etc. Today patient does not have a CBC. She is coming off of Covid precautions. Her vital signs are stable and she is without a fever. In her left axillary region I palpated a round mass consistent with probable lymph node which is tender to palpation. On the upper/inner left arm there is an area (~5cm) of erythema and tenderness without drainage and a small scabbed area noted off the center. There is induration and area of fluctuance appreciated. There is some bruising noted in the upper medial side of her arm as well. At this time we would repeat US to evaluate organization of a fluid collection/abscess in the area of concern. Will review images. Will likely need I&D. Patient is unwilling to have any procedures performed at the bedside. We will follow up and consider adding patient onto the OR schedule for tomorrow for I&D. Supervising Physician Co-Signing Physician Notes d.w GROVER, agree w/ above. Possible left axillary cellulitis vs abscess vs hs. Repeat US, may need CT vs I&D in OR tomorrow. History of Present Illness Attending Physician: Sangeeta Ko MD History of Present Illness This is a 59yF with a PMH of chronic pain with opioid dependence, anxiety/depression, peripheral artery disease, R BKA who presented to the [facility] on 10/01/24 with left groin/leg pain. Today we have been consulted for concern of left axillary abscess formation. Patient states it just popped up on 10/10. The area was tender for her and it was imaged by US which showed there is a 5 cm area of edematous appearing tissue suggesting cellulitis. The nonspecific superficial findings could represent reactive lymph nodes or inflamed sebaceous cysts. The patient was since started on IV abx, vancomycin with the recent addition of levofloxacin without much improvement. There is to believed more of an area organized with fluctuance consistent with underlying fluid collection/abscess formation. The patient denies any fevers/chills. She does have a history of MRSA. She reports requiring I&D in the OR a couple years ago for right sided abscesses drained by dr. messina. Outside of that episode she has not had any other history of abscesses. Of note, her chart does make mention of a PMH of hidradenitis. The patient denies any recent trauma to the area, in jur[place] with shaving, bug bites, etc. Allergies Allergy/AdvReac Type Severity Reaction Status Date / Time morphine Allergy Severe blisters Verified 02/10/24 22:40 in mouth Sulfa (Sulfonamide Allergy Severe rash/swelli Verified 02/10/24 22:40 Antibiotics) ng amoxicillin [From Augmentin] Allergy Intermediate itching/power Verified 02/10/24 22:40 h ceftriaxone [From Rocephin] Allergy Intermediate Hives Verified 02/10/24 22:40 clavulanic acid Allergy Intermediate itching/power Verified 02/10/24 22:40 [From Augmentin] h erythromycin base Allergy Intermediate Hives Verified 02/10/24 22:40 vancomycin Allergy Intermediate YULIYA Verified 02/10/24 22:40 SYNDROME---CAN TAKE IF VERY SLOW DRIP. adhesive AdvReac Intermediate DERMABOND Verified 02/10/24 22:40 excoriates skin gabapentin AdvReac Intermediate Nausea Verified 02/10/24 22:40 iron [From Venofer] AdvReac Intermediate Hypertensio Verified 02/10/24 22:40 n Home Medications Medication Instructions Recorded Confirmed Type insulin glargine 100 unit/mL (3 10 unit subcut HS 10/17/22 09/28/24 History mL) subcutaneous pen (Lantus Solostar U-100 Insulin) alprazolam 1 mg tablet 1 mg PO TID PRN Anxiety 05/08/23 10/01/24 History docusate sodium 100 mg capsule 100 mg PO BID 05/08/23 09/28/24 History metoprolol succinate 50 mg 50 mg PO QAM 05/08/23 09/28/24 History tablet,extended release 24 hr (Toprol XL) clopidogrel 75 mg tablet (Plavix) 75 mg PO DAILY #30 tabs 05/10/23 09/28/24 Rx prochlorperazine maleate 5 mg 5 mg PO TID PRN Nausea 06/13/23 09/28/24 History tablet aspirin 81 mg tablet,delayed 81 mg PO DAILY 09/19/23 09/28/24 History release hydralazine 25 mg tablet 25 mg PO TID 09/19/23 09/28/24 History clonidine HCl 0.1 mg tablet 0.1 mg PO Q8H #90 tabs 04/03/24 09/28/24 Rx naloxone 4 mg/actuation nasal spray 4 mg intranasal ONCE PRN opioid 04/03/24 09/28/24 Rx overdose #2 ea polyethylene glycol 3350 17 gram 17 g PO BID #0 ea 04/03/24 09/28/24 Rx oral powder packet (Miralax) pregabalin 100 mg capsule (Lyrica) 100 mg PO TID #90 caps 04/03/24 09/28/24 Rx sennosides 8.6 mg tablet (Senokot) 17.2 mg (2 x 8.6 mg) PO BID PRN 04/03/24 09/28/24 Rx constipation #60 tabs duloxetine 60 mg capsule,delayed 60 mg PO DAILY 06/02/24 09/28/24 History release insulin aspart 5 unit subcut TIDM 06/02/24 09/28/24 History (niacinamide)(U-100) 100 unit/mL(3 mL) subcutaneous pen (Fiasp FlexTouch U-100 Insulin) lisinopril 20 mg tablet 20 mg PO DAILY 06/02/24 09/28/24 History ropinirole 4 mg tablet 8 mg PO HS 06/02/24 09/28/24 History sucralfate 100 mg/mL oral 1 g (10 mL) PO ACHS #200 mL 06/05/24 09/28/24 Rx suspension (Carafate) aripiprazole 5 mg tablet (Abilify) 2.5 mg (1/2 x 5 mg) PO QAM #30 tabs 07/09/24 09/28/24 Rx hydroxyzine HCl 25 mg tablet 50 mg (2 x 25 mg) PO HS #30 tabs 07/09/24 09/28/24 Rx quetiapine 25 mg tablet 25 mg PO HS 10/06/24 10/06/24 History Patient History Medical History Dysphagia Lumbar radiculopathy, right Type 2 diabetes mellitus Uncontrolled hypertension GERD (gastroesophageal reflux disease) Amputation of left great toe Poor venous access Hyponatremia Intractable neuropathic pain of left lower extremity Gastroparesis Leukocytosis Insomnia HTN (hypertension) Hypertension Groin pain Foot pain Infection of left great toe due to methicillin resistant Staphylococcus aureus (MRSA) Diastolic CHF COVID-19 Osteomyelitis of great toe of left foot Opiate dependence Opiate abuse, continuous Acidosis, lactic Acute dehydration Gastroenteritis Sepsis Shortness of breath Opioid dependence Insomnia 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 No issues per anesthesia postop progress note. Anemia Hyponatremia Cellulitis Peripheral neuropathy Benzodiazepine withdrawal Right second toe ulcer Diabetes mellitus type 2, uncontrolled Hyperlipidemia Seizures Gastritis Numbness of lower extremity Hypertriglyceridemia CAD (coronary artery disease) History of tobacco use Benzodiazepine dependence Diabetic neuropathy Abdominal pain Gastroparesis Esophagitis determined by endoscopy GIB (gastrointestinal bleeding) Insulin dependent diabetes mellitus DM2 (diabetes mellitus, type 2) IDDM, A1c 07/2021-11% Surgical History History of lumbar fusion L5-S1 from 2004, [place] History of lumbar surgery History of esophagogastroduodenoscopy (EGD) Family History Mother , age 63 Myocardial infarction Father , age 68 or 69 Myocardial infarction Brother S/P CABG (coronary artery bypass graft) Sister Myocardial infarction x 3; she is 57yo Social History Smoking Status: Former smoker Tobacco Type: Cigarettes packs per day: 0.5; Second Hand Exposure: No; Do You Dip or Chew Tobacco: No; Hx Alcohol Use: No Hx Substance Use: Yes Prescribed Medications: Marijuana Last Used Substance: Unknown Last Used Substance Other:: Medical marijuana Substance Use Type Other:: Medical marijuana Preferred Language: Portuguese Communication Ability: Effective Visual Impairment: No Limitations Hearing Ability: Normal House Wrecker Required: No Beliefs That Will Affect Care: None marital status: Current Living Situation: Spouse Current Living Situation Comment: lives at home with current occupational status: unemployed 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 Other Information That Helps Us Care for You: No other: raising a grandchild as well; lives in [place] Feels Safe at Home: Yes Safety Concerns: Feels Safe At This Time Diet: diabetic and low salt during the past year weight has: remained stable Assistive Devices: Bedside Commode, Glasses, Walker and Wheelchair Review of Systems Constitutional: no fever and no chills Cardiovascular: no chest pain Gastrointestinal: + nausea; no abdominal pain and no vomit ing Musculoskeletal: left groin/leg pain Integumentary: tender area in left underarm region, red, no drainage Physical Exam Physical Exam: awake/alert, no distress Respiratory: normal respiratory effort Skin: left axillary region with palpated round mass consistent with probable lymph node which is tender to palpation, on upper/inner left arm there is an area of erythema and tenderness without drainage and a small scabbed area noted off the center. there is induration and area of fluctuance appreciated. there is some bruising noted in the upper medial side of her arm too. Results & Data Vital Signs (Past 12 Hours) Vital Signs Temp Pulse Resp BP Pulse Ox O2 Del Method 10/13/24 07:10 97.9 F 66 16 116/61 95 Room Air Diagnostic Findings US axilla LT CLINICAL HISTORY: mass,assess for abscess vs lymphadenopathy COMPARISON STUDY: Chest CT of 06/30/2024. FINDINGS: At the site of palpable complaint at the left axilla there is a 1.6 cm greatest dimension wider than tall hypoechoic finding in the superficial soft tissues just deep to the skin with possible peripheral vascular flow. There is a similar nearby superficial finding measuring 8 mm. There is an adjacent area of edematous appearing tissue measuring approximately 5 cm greatest dimension. No abscess seen. IMPRESSION: 1. Findings at the left axilla are nonspecific. There is a 5 cm area of edematous appearing tissue suggesting cellulitis. 2. Nonspecific superficial findings could represent reactive lymph nodes or inflamed sebaceous cysts. Clinical follow-up is recommended. If the clinical findings do not improve, follow-up imaging and consideration of biopsy would be suggested. ACT 112: Positive. There are findings on this exam that require communication between the performing entity and the patient following Patient Test Result Information Act ([place] Act 112) guidelines. Electronically signed by: Anil Gunter M.D. 10/10/2024 4:08 PM PG Care Time/CCT Total # of Minutes Spent Total Time Spent with Patient: Total time spent is greater than 50% in coordination of care (as documented) at patient's floor/unit and/or counseling patient: Coding Level of Care Code 39596 IN/OBS CONSULT LVL 3,45M Diagnoses Abscess L02.91
--- NOTE | 2024-10-13 16:00 | Palliative Care Progress Note ---
Date of Service October 13, 2024 Assessment & Plan (1) Chronic pain: Plan: pt came to ED for intractable severe pain in LLE, groin, and L flank: Home regimen Oxy IR 20mg approx 8-10 daily, no relief Prior methadone was stopped by pt at low dose because "it didn't help at all" She has a long hx of stopping meds when she feels they do not help and then she will also delay her own care, to her own detriment She has a prior substance abuse history in distant past and is opioid tolerant +manipulative behaviors, splitting teams At home pt was using oral oxycodone 160 - 200mg daily without relief 200mg oxy = 400mg oral MS equivalents (OMEs) 400mg PO MS = 133mg IV MS = dilaudid 27mg IV daily equivalent Started TDF last week for opiate rotation Over weekend, INPATIENT SERVICES RN was dc'd and TDF increased to 75mcg It is noted she has used far less Dilaudid with INPATIENT SERVICES RN vs PRN dosing and pain has been better managed with INPATIENT SERVICES RN Today's adjustments: Increased Dilaudid to 0.2mg q3H prn Continue Oxy IR 30mg PO q4h prn BTP Hold for somnolence or RR less than 14; please document RR with each dose administration. New painful lump left axilla - US pending (2) Advanced care planning/counseling discussion: Plan: She reaffirms her desire to work towards going home, she will follow up with OP Pall med clinic (3) Palliative care by specialist: Plan: Palliative care continues to follow for pain/symptom mgmt and ACP. (4) Nausea & vomiting: Plan: Improving She is also having occasional liquid stool Continue IV Compazine and prn Zofran 4mg IVP q6h scheduled Zofran and compazine administration should be off set so that an antiemetic is given every three hours, (ie. Zofran 3-9-3-9 AND compazine 6-12-6-12) (5) Therapeutic opioid-induced constipation (OIC): Plan: not currently an issue, pt c/o liquid stool Plan As above This patient will benefit from clear consistent communication across disciplines. it is important for all providers to maintain a unified approach, delivering tanner information in a consistent and direct manner. Attempts to assign blame or introduce misconceptions should be met with a neutral and factual response. A collaborative, non-confrontational approach will help foster a therapeutic relationship, and it is essential to avoid blaming the patient for her challenges. This approach will improve communication and support more effective engagement with her care. Admission and Anticipated Discharge Date Admission Date: October 01, 2024 Subjective assessed pt at bedside, she is more awake and alert today and appears comfortable listening to loud music and surfing the internet on her phone. She shared that she had "a really bad night" and got no sleep 2/2 pain. she shared that her chronic leg/groin pain is compounded by burning, throbbing pain in her left axilla and arm. She has maximized her PRN analgesic use over last 24hrs, without adequate relief. Review of Systems Review of Systems: All systems reviewed & are unremarkable except as noted in Subjective Physical Exam Physical Exam: awake/alert, no distress Constitutional: well developed, + ill appearing, + thin and + frail appearing Respiratory: normal respiratory effort, lungs clear to auscultation normal respiratory effort Cardiovascular: Rate/Rhythm: regular rate and regular rhythm Vessels: dorsalis pedis pulses present Extremities: normal capillary refill; no edema Gastrointestinal (Abdomen): normal bowel sounds, soft, nontender, no hepatosplenomegaly Musculoskeletal: Right BKA, otherwise GONZALES with strength and purpose Skin: left axillary region with palpated round mass consistent with probable lymph node which is tender to palpation, on upper/inner left arm there is an area of erythema and tenderness without drainage and a small scabbed area noted off the center. there is induration and area of fluctuance appreciated. there is some bruising noted in the upper medial side of her arm too. Neurologic: PERRL, EOMI, accommodation nl, no face palsy, no dysarthria Psychiatric: Orientation: alert and oriented x 3 Affect: + anxious affect Mood: + anxious mood Results & Data Vital Signs (Past 12 Hours) Vital Signs Temp Pulse Resp BP Pulse Ox O2 Del Method 10/13/24 15:28 36.8 C 79 16 119/63 91 Room Air 10/13/24 07:10 36.6 C 66 16 116/61 95 Room Air Laboratory Results Abnormal lab results 10/13/24 10/13/24 10/13/24 Range/Units 07:45 16:42 20:40 POC Glucose 149 H 156 H 133 H (70-99) mg/dl Diagnostic Findings Lower Extremity CTA 10/01/24 14:21 CT ANGIOGRAPHY OF THE LEFT LOWER EXTREMITY CLINICAL HISTORY: Groin pain down to foot, hx of PAD. COMPARISON STUDY: Left lower extremity arterial Doppler ultrasound December 30, 2023. CTA with runoff July 14, 2021. CTA of the abdomen and pelvis July 01, 2024. TECHNIQUE: Helical axial images of the mid to lower abdomen, pelvis and left lower extremity were obtained during arterial phase following intravenous inje ction 120 cc of Optiray 320 IV. Sagittal and coronal reconstructions were viewed as well as maximal intensity projections on an independent 3-D workstation. Automated exposure control was utilized for the study. A dose lowering technique was utilized adhering to the principles of ALARA. FINDINGS: Visualized portions of the liver are unremarkable on arterial phase exam. There is no biliary ductal dilatation status post cholecystectomy. Spleen, adrenal glands and pancreas are unremarkable. There is no evidence for a bowel obstruction. The caliber and wall thickness of small and large bowel are normal. There are postoperative findings within the spine. There is no abdominal lymphadenopathy. No fluid collections are present. Postoperative findings consistent with right below-knee amputation. There is extensive plaque with multifocal stenoses within the right lower extremity vasculature. There is extensive atherosclerotic plaque within the abdominal aorta. No abdominal aortic aneurysm is present. Branch vessels are patent. There is extensive plaque within the left lower extremity vasculature. The left common iliac artery is patent. There is mild stenosis of the left external iliac artery. There is moderate stenosis of the left common femoral artery. There are moderate multifocal stenoses within the left superficial femoral artery. The left popliteal artery is patent. There is occlusion of the proximal left anterior tibial artery with distal reconstitution. The left dorsalis pedis is patent. The left peroneal artery is patent to the level of the syndesmosis. Multifocal stenoses of the left posterior tibial artery are present with occlusion and distal reconstitution. There is trace flow within the distal left posterior tibial artery. IMPRESSION: 1. Extensive atherosclerotic plaque within the left lower extremity. 2. Moderate multifocal stenoses within the left superficial femoral artery. 3. Occlusion of the proximal left anterior tibial artery which is new since CT of July 14, 2021. Distal reconstitution with patent left dorsalis pedis. 4. Occlusion of the distal left posterior tibial artery with distal reconstitution. Overall, significantly diminished flow within the left calf vessels. 5. Extensive plaque within the abdominal aorta. No aneurysm or stenosis within the abdominal aorta. Patent left common iliac artery. 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 6. Status post right below knee amputation. ACT 112: Negative or not required by law. Electronically signed by: Wilver Powell M.D. 10/01/2024 4:38 PM Ankle Brachial Index 10/02/24 13:56 Clinical history: Left foot pain. 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 A right NATHAN is therefore not possible The left NATHAN is diminished at 0.82. Blood flow could not be detected within the left toes Impression: 1. Diminished left NATHAN at 0.82. This is indicative of mild to moderate severity peripheral arterial disease 2. Lack of detectable blood flow within the left toes, which could be due to distal arterial occlusion Electronically signed by Jose Jones 10-02-2024 4:17 PM Axilla US 10/13/24 15:25 EXAM: US axilla LT CLINICAL HISTORY: US left underarm area of redness to eval abscess. TECHNIQUE: Ultrasound of left axilla performed using a linear high frequency probe and multiple images obtained. COMPARISON: None. FINDINGS: 2 complex areas are seen in the left axilla, measuring 1.7 x 1.2 x 0.5 cm and 0.6 x 0.3 x 0.8 cm. These are associated with adjacent edema and thickening of the fat. Multiple internal Echoes and debris noted Left axilla 5.3 x .7 x 2.0 cm area of redness IMPRESSION: 1. The above-mentioned finding could represent a small abscess/inflamed lymph node with adjacent inflamed fat. 2. Advised clinical correlation or Further evaluation with CT can be obtained Electronically signed by Mika De Luna 10-13-2024 6:26 PM Medications Administered Current Inpatient Medications Acetaminophen (Acetaminophen 500 Mg Tab) 1,000 mg PO TID RICKY Stop: 11/01/24 08:59 Last Admin: 10/13/24 20:48 Dose: 1,000 mg Aripiprazole (Aripiprazole 5 Mg Tab) 5 mg PO QAM RICKY Stop: 11/08/24 08:59 Last Admin: 10/13/24 08:17 Dose: 5 mg Aspirin (Aspirin 81 Mg Ectab) 81 mg PO DAILY RICKY Stop: 11/01/24 08:59 Last Admin: 10/13/24 08:18 Dose: 81 mg Clonidine HCl (Clonidine Hcl 0.3 Mg/24 Hr Transderm Sys) 1 patch TD Q7D RICKY Stop: 11/02/24 10:29 Last Admin: 10/10/24 12:57 Dose: 1 patch Clopidogrel Bisulfate (Clopidogrel Bisulfate 75 Mg Tab) 75 mg PO DAILY RICKY Stop: 11/01/24 08:59 Last Admin: 10/13/24 08:18 Dose: 75 mg Dextrose (Dextrose 50% 50 Ml Syringe) 25 - 50 ml IV UD PRN; Protocol PRN Reason: Hypoglycemia Protocol Stop: 11/05/24 19:59 Diphenhydramine HCl (Diphenhydramine Capsule 25 Mg Cap) 25 mg PO Q6H PRN PRN Reason: itching Stop: 11/12/24 17:49 Last Admin: 10/14/24 00:54 Dose: 25 mg Docusate Sodium (Docusate Sodium 100 Mg Cap) 100 mg PO BID RICKY Stop: 10/31/24 20:59 Last Admin: 10/13/24 20:48 Dose: 100 mg Duloxetine HCl (Duloxetine Hcl 60 Mg Cap) 60 mg PO DAILY RICKY Stop: 11/01/24 08:59 Last Admin: 10/13/24 08:18 Dose: 60 mg Enoxaparin Sodium (Enoxaparin Inj 40 Mg/0.4 Ml Syr) 40 mg SQ QAM RICKY Stop: 11/01/24 08:59 Last Admin: 10/13/24 08:20 Dose: 40 mg Fentanyl (Fentanyl 75 Mcg/Hr Tdsy) 1 patch TD Q3D RICKY Stop: 10/24/24 12:29 Last Admin: 10/13/24 12:29 Dose: 1 patch Glucagon (Glucagon For Inj 1 Mg Vial) 1 mg SQ UD PRN; Protocol PRN Reason: Hypoglycemia Protocol Stop: 11/05/24 19:59 Glucose (Glucose 40% Gel 15 Gm Tube) 15 - 30 gm PO UD PRN; Protocol PRN Reason: Hypoglycemia Protocol Stop: 11/05/24 19:59 Glucose (Glucose 10 Tab/Tube) 4 - 8 tab PO UD PRN; Protocol PRN Reason: Hypoglycemia Protocol Stop: 11/05/24 19:59 Hydralazine HCl (Hydralazine Hcl 25 Mg Tab) 25 mg PO TID RICKY Stop: 10/31/24 20:59 Last Admin: 10/13/24 20:46 Dose: 25 mg Hydrocortisone (Hydrocortisone 1% Crm 30 Gm Tube) 1 appln EXT BID PRN PRN Reason: itch or rash Stop: 11/09/24 12:15 Hydromorphone HCl (Hydromorphone Inj 0.5 Mg/0.5 Ml Syr) 0.2 mg IV Q3H PRN PRN Reason: Severe Pain (Scale 7, 8, 9,10) Stop: 10/24/24 12:29 Last Admin: 10/14/24 00:47 Dose: 0.2 mg Hydroxyzine HCl (Hydroxyzine Hcl 25 Mg Tab) 50 mg PO HS [facility] Stop: 10/31/24 20:59 Last Admin: 10/13/24 20:48 Dose: 50 mg Prochlorperazine 5 mg/ Syringe 5 mls @ 5 mls/min IV Q6H PRN PRN Reason: Nausea And Vomiting Stop: 11/05/24 21:52 Last Admin: 10/13/24 18:18 Dose: 5 mls/min Daptomycin 350 mg/ Syringe 7 mls @ 3.5 mls/min IV Q24H [facility] [place]; Protocol Stop: 10/17/24 15:29 Last Admin: 10/13/24 17:26 Dose: 3.5 mls/min Levofloxacin/Dextrose (Levaquin/D5w) 750 mg in 150 mls @ 100 mls/hr IV Q24H [facility] [place]; Protocol Stop: 10/19/24 14:29 Last Infusion: 10/13/24 17:44 Dose: Infused Insulin Aspart (Insulin Aspart Per Unit Charge) 0 units SC ACHS [facility] [place] Stop: 11/05/24 20:59 Last Admin: 10/13/24 21:32 Dose: 1 units Insulin Glargine (Lantus Per Unit Charge) 10 units SC HS [facility] [place] Stop: 10/31/24 20:59 Last Admin: 10/13/24 21:32 Dose: 10 units Lidocaine (Lidocaine 5% 1 Patch) 1 patch TD QAM [facility] [place] Stop: 10/31/24 19:57 Last Admin: 10/13/24 08:20 Dose: 1 patch Lisinopril (Lisinopril 20 Mg Tab) 20 mg PO DAILY [facility] [place] Stop: 11/01/24 08:59 Last Admin: 10/13/24 08:18 Dose: 20 mg Lorazepam (Lorazepam 2 Mg/1 Ml Vial) 0.5 mg IV Q8H PRN PRN Reason: Anxiety/Agitation Stop: 11/06/24 16:09 Last Admin: 10/13/24 20:47 Dose: 0.5 mg Melatonin (Melatonin 3 Mg Tab) 6 mg PO HS PRN PRN Reason: Sleep Stop: 11/04/24 19:41 Last Admin: 10/13/24 20:48 Dose: 6 mg Metoprolol Succinate (Metoprolol Succ 50mg Ext Rel Tab) 50 mg PO QAM RICKY Stop: 11/01/24 08:59 Last Admin: 10/13/24 08:18 Dose: 50 mg Miscellaneous (Remove Lidoderm Patch) 1 each N/A DAILY@2100 [facility] [place] Stop: 10/31/24 20:59 Last Admin: 10/13/24 20:49 Dose: 1 each Miscellaneous (Check Clonidine Patch Placement) 1 each N/A QS [facility] [place] Stop: 11/02/24 15:59 Last Admin: 10/13/24 23:33 Dose: 1 each Miscellaneous (Remove Clonidine Patch) 1 each N/A CQWK [facility] [place] Stop: 11/02/24 10:29 Last Admin: 10/10/24 12:58 Dose: 1 each Miscellaneous (Carbohydrates For Hypoglycemia ) 15 - 30 gm PO UD PRN PRN Reason: Hypoglycemia Protocol Stop: 11/05/24 19:59 Miscellaneous (Fentanyl Patch Remove & Waste) 1 each N/A Q3D [facility] [place] Stop: 11/09/24 12:29 Last Admin: 10/13/24 12:29 Dose: 1 each Miscellaneous (Check Fentanyl Patch Placement) 1 each N/A QS [facility] [place] Stop: 11/09/24 15:59 Last Admin: 10/13/24 23:33 Dose: 1 each Naloxone HCl (Naloxone Hcl 0.4 Mg/1 Ml Vial/Carp) 0.1 mg IV Q5M PRN; Protocol PRN Reason: Oversedation/Resp Depression Stop: 10/16/24 08:56 Ondansetron HCl (Ondansetron Inj 2 Mg/Ml 2 Ml Vial) 4 mg IV Q6H RICKY Stop: 11/02/24 12:59 Last Admin: 10/14/24 00:47 Dose: 4 mg Oxycodone HCl (Oxycodone Hcl Ir 30 Mg Tab (Immediate Release)) 30 mg PO Q4H PRN PRN Reason: MODERATE Pain Stop: 10/24/24 12:29 Last Admin: 10/13/24 04:47 Dose: 30 mg Pentoxifylline (Pentoxifylline 400mg Ext Rel Tab) 400 mg PO BID [facility] [place] Stop: 11/10/24 20:59 Last Admin: 10/13/24 20:46 Dose: 400 mg Polyethylene Glycol (Polyethylene (Miralax) 17 Gm Pack) 17 gm PO DAILY [facility] [place] Stop: 11/08/24 08:59 Last Admin: 10/13/24 08:20 Dose: Not Given Pregabalin (Pregabalin 150 Mg Cap) 150 mg PO TID [facility] [place] Stop: 11/06/24 08:59 Last Admin: 10/13/24 20:48 Dose: 150 mg Quetiapine Fumarate (Quetiapine Fumarate 25 Mg Tablet) 50 mg PO HS [facility] [place] Stop: 11/08/24 20:59 Last Admin: 10/13/24 20:47 Dose: 50 mg Ropinirole HCl (Ropinirole Hcl 2 Mg Tablet) 8 mg PO HS [facility] [place] Stop: 10/31/24 20:59 Last Admin: 10/13/24 20:46 Dose: 8 mg Sennosides (Senna 8.6 Mg Tab) 17.2 mg PO HS [facility] [place] Stop: 11/07/24 20:59 Last Admin: 10/13/24 20:48 Dose: 17.2 mg Sucralfate (Sucralfate 1 Gm/10 Ml Udc) 1 gm PO ACHS [facility] [place] Stop: 10/31/24 20:59 Last Admin: 10/13/24 20:46 Dose: 1 gm PG Care Time/CCT Total # of Minutes Spent Total Time Spent with Patient: Total time spent is greater than 50% in coordination of care (as documented) at patient's floor/unit and/or counseling patient: Coding [place] [address] SUB INP/OBS CARE 2/35MIN Patient Type Established History Expanded Problem Focused Exam Expanded Problem Focused Medical Decision Making Moderate Complexity Diagnoses Chronic pain syndrome G89.4 Chronic pain type: chronic pain syndrome Advanced care planning/counseling discussion Z71.89 Palliative care by specialist Z51.5 Nausea & vomiting R11.2 Vomiting type: unspecified Therapeutic opioid-induced constipation (OIC) K59.03; T40.2X5A (1) Chronic pain Chronic pain type: chronic pain syndrome Qualified Code(s): G89.4 - Chronic pain syndrome (4) Nausea & vomiting Vomiting type: unspecified Qualified Code(s): R11.2 - Nausea with vomiting, unspecified
[2024-10-13] MEDS: diphenhydrAMINE Capsule 25 MG CAP PO PRN (18:18)
--- NOTE | 2024-10-13 18:27 | Ultrasound Report ---
EXAM: US axilla LT CLINICAL HISTORY: US left underarm area of redness to eval abscess. TECHNIQUE: Ultrasound of left axilla performed using a linear high frequency probe and multiple images obtained. COMPARISON: None. FINDINGS: 2 complex areas are seen in the left axilla, measuring 1.7 x 1.2 x 0.5 cm and 0.6 x 0.3 x 0.8 cm. These are associated with adjacent edema and thickening of the fat. Multiple internal Echoes and debris noted Left axilla 5.3 x .7 x 2.0 cm area of redness IMPRESSION: 1. The above-mentioned finding could represent a small abscess/inflamed lymph node with adjacent inflamed fat. 2. Advised clinical correlation or Further evaluation with CT can be obtained Electronically signed by Mika De Luna 10-13-2024 6:26 PM
[2024-10-14] MEDS ORDERED: Nursing to Pharmacy Communication SCH ×2 (05:15→11:00)
[2024-10-14] MEDS: INSULIN ASPART PER UNIT CHARGE SC SCH ×2 (05:56→12:48)
--- NOTE | 2024-10-14 10:05 | Surgery Progress Note ---
Date of Service October 14, 2024 Assessment & Plan (1) Abscess: Plan: we are following pt for left underarm pain and concern for abscess formation 2nd US was obtained yesterday revealing area of cellulitis, edema in the area of erythema, along with possible small abscess/inflamed LN with adjacent inflamed fat. The larger abscess is measuring <2cm Area is stable if not mildly improving from yesterday. She continues on iv dapto and levo The area's of abscess are small and hopefully abx will resolve them For now no interventions planned but we will follow up again iftikhar (npo at midnight) for repeat evaluation she does seem to have a component of hidradentitis Admission and Anticipated Discharge Date Admission Date: October 01, 2024 Supervising Physician Co-Signing Physician Notes Patient seen and examined, labs imaging reviewed, agree with above. Consulted for left axillary cellulitis, ultrasound with phlegmon versus lymph node versus small abscess underlying the cellulitis. On exam she is afebrile stable vitals. She has an area of erythema with some more indurated and thicker areas but no palpable fluctuance or fluid collection. Per report, this is improved from yesterday. Ultrasound reviewed. At this point there is no indication for incision and drainage. Would recommend continued antibiotics. We will allow her to eat today, we will make her n.p.o. as a precautionary measure for tomorrow Subjective Patient feeling okay. Remains with pain under left axillary region/underarm area. Physical Exam Physical Exam: awake/alert, no distress Skin: area of redness in the left underarm slightly improved, not worsened since yesterday. remains ttp, indurated in portion, small scab noted off center. tender to palpation, palpable small mass vs LN noted tender in axillary region Results & Data Vital Signs (Past 12 Hours) Vital Signs Temp Pulse Resp BP Pulse Ox O2 Del Method 10/14/24 08:00 98.4 F 69 16 160/68 H 95 Room Air PG Care Time/CCT Total # of Minutes Spent Total Time Spent with Patient: Total time spent is greater than 50% in coordination of care (as documented) at patient's floor/unit and/or counseling patient: Coding Level of Care Code 22868 SUB INP/OBS CARE 09/06MIN Diagnoses Abscess L02.91
[2024-10-14 10:38] LABS: Basophils # (auto) 0.05 K/uL (0.00-0.20); Basophils % (auto) 0.6 %; Eosinophils # (auto) 0.35 K/uL (0.00-0.50); Eosinophils % (auto) 3.9 %; Hematocrit (blood only) 31.6 % (37.0-47.0); Hemoglobin 9.6 g/dl (12.0-16.0); Immature Granulocytes # (auto) 0.03 K/uL (0.01-0.20); Immature Granulocytes % (auto) 0.3 %; Lymphocytes # (auto) 1.83 K/uL (1.20-3.40); Lymphocytes % (auto) 20.4 %; Mean Corpuscular Hemoglobin 23.5 pg (25.0-34.0); Mean Corpuscular Hgb Conc 30.4 g/dL (32.0-36.0); Mean Corpuscular Volume 77.5 fL (80.0-100.0); Mean Platelet Volume 10.2 fL (9.4-12.4); Monocytes # (auto) 1.06 K/uL (0.11-0.59); Monocytes % (auto) 11.8 %; Neutrophils # (auto) 5.67 K/uL (1.40-6.50); Platelet Count 254 K/uL (130-400); RDW Coefficient of Variation 18.4 % (11.5-14.5); RDW Standard Deviation 51.5 fL (36.4-46.3); Red Blood Count 4.08 M/uL (4.20-5.40); White Blood Count 8.99 K/ul (4.8-10.8)
[2024-10-14 10:48] LABS: BUN Creatinine Ratio 51.7 (10-20); Calcium 9.6 mg/dl (8.6-10.3); Creatinine Clr Calc Pharmacy 81.6 ml/min; Magnesium 1.7 mg/dl (1.7-2.4); Potassium 4.6 mmol/L (3.5-5.1)
--- NOTE | 2024-10-14 15:16 | Communication Note ---
Date of Service: October 14, 2024 at 0830 Brief palliative medicine note Patient is n.p.o. awaiting possible surgical intervention today. Patient was not seen, please call or page for any urgent matters postoperatively Thank you for allowing us to participate in the ongoing care of this patient. Please page with any additional concerns. Ree Driscoll DNP Director, Palliative Medicine
[2024-10-14] MEDS: oxyCODONE HCL IR 5 MG TAB (IMMEDIATE RELEASE) PO PRN (17:34)
--- NOTE | 2024-10-14 17:59 | Hospitalist Progress Note ---
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 Patient has seen pain management and multiple other specialties. She has at times had vascular procedures to improve blood flow without great improvement in her pain. Patient has failed an ilio inguinal nerve block in the past. She presents once again with her chronic left and right groin pain requiring parenteral opiate therapy # Acute on chronic pain: Her pain is similar to what has been described in the past. 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 The pain is not consistent with ischemia, she has been seen by vascular medicine Dr Lin in December 2023 and again this admission for similar pain and not suspected to be due to ischemia and she has good dorsalis pedis pulse on palpation. Her left foot is cool but with good capillary refill. CTA 10/01/24 shows some progression of PAD To LLE Patient has failed different long and short acting opioids to include MS Contin, Morphine, and methadone, Fentanyl patch Etiology is most likely neuropathic and ischemic pain with parts of this likely being hyperalgesia Current regimen includes a fentanyl patch 75 mcg, Lyrica 150 3 times daily, duloxetine, breakthrough pain control with oxycodone and intravenous hydromorphone -palliative medicine is assisting with her chronic pain management-increased IV dilaudid dose to 0.3mg IV every 3 hours as needed breakthrough pain and increased oxycodone dose to 40 mg p.o. every 4 hours as needed for breakthrough pain-increase is made on 10/14 -Patient agreeable to referral to see a therapist on an intensive basis as an outpatient #PAD -with a h/o right BKA, on aspirin and plavix -added pentoxifylline to try to improve circulation in case her pain is from any ischemia. #Left axillary lymphadenitis/abscess/cellulitis-developed acute onset of painful swollen lumps in left axilla on 10/10. Suspect lymphadenitis initially and now has formed a fluctuant mass in left axilla consistent with abscess. Has been on Daptomycin since 10/10 and Levaquin since 10/12. Leukocytosis improved, remains afebrile. Fluctuant area is smaller in size on 10/14. Surgery held off on I&D for now. -continue Dapto and Levaquin -consult Gen Surgery for abscess I&D appreciated-make n.p.o. after midnight in case of need for surgical drainage on 10/15 -continue pain control as above #Anemia-iron deficiency-hemoglobin slowly trending down to 9.6, microcytic. Transferrin saturation low at 8%, ferritin low at 24. No evidence of bleeding from anywhere obvious -Will offer IV Venofer once infection is improved -Follow CBC -Consider outpatient GI workup after discharge for occult GI blood loss #Opioid-induced constipation- ongoing -continue scheduled sennakot and Miralax once daily #COVID-19/Nausea-She reports having fevers at home, nausea/vomiting, and diarrhea. Diarrhea now improved, appetite remains low and nausea comes and goes but is improved with increasing Abilify dose. She is now off of COVID isolation -continue zofran prn, compazine prn (no doses used), ativan for nausea -Increased Abilify to 5mg po qAM which can help with nausea-improved #Anxiety/Insomnia-continue hydroxyzine, duloxetine, IV ativan, holding home xanax prn -continue increased dose of Abilify 5mg po qAM -increased Seroquel to 50mg po hs for depression and for sleep -Palliative medicine increased frequency of IV Ativan to every 6 as needed for anxiety #HTN - BPs normal -continue clonidine but switched pills to a patch -continue hydralazine, lisinopril #DMII-is on Lantus and Novolog, A1C well controlled here at 6.6% Continue BSGs, ADA diet VTE Prophylaxis - Lovenox 40mg SQ daily-hold in case of surgical drainage Disposition - continued stay med/surg, -Nurse Navigator will need to do a prior auth for Fentanyl patch-pending Admission and Anticipated Discharge Date Admission Date: October 01, 2024 Subjective Patient continues to complain of severe pain in her groin as well as her left armpit and reports that she is not sleeping at all. She is tearful. We discussed that pain also involves a psychological component and she immediately became defensive but eventually after talking, said that she would be willing to talk to a therapist. She shows me 3 scratch pickering on her left foot that she says developed spontaneously overnight. She denies that she scratched her own foot. She cries "this is how it all started before I lost my right leg!" Physical Exam Constitutional: WD/WN, vitals as above Respiratory: normal respiratory effort, lungs clear to auscultation Cardiovascular: RRR, no murmur, no edema Gastrointestinal (Abdomen): normal bowel sounds, soft, nontender, no hepatosplenomegaly Skin: Left axilla with smaller area of fluctuance, positive erythema but is improved from previous, exquisitely tender, with palpable left axillary lymphadenopathy Left dorsal foot and left anterior barbosa with very small excoriated lesions Psychiatric: Orientation: alert and oriented x 3 Mood: + depressed mood Results & Data Results & Data Vital Signs (Past 12 Hours) Vital Signs Temp Pulse Resp BP Pulse Ox O2 Del Method 10/14/24 14:24 37.0 C 73 16 151/51 H 92 Room Air 10/14/24 08:00 36.9 C 69 16 160/68 H 95 Room Air Laboratory Results CBC, BMP, magnesium reviewed PG Care Time/CCT Total # of Minutes Spent Total Time Spent with Patient: Total time spent is greater than 50% in coordination of care (as documented) at patient's floor/unit and/or counseling patient: Coding Level of Care Code 25068 SUB INP/OBS CARE 2/35MIN Diagnoses Chronic pain G89.29 Chronic pain type: other chronic pain Abscess L02.91 SARS-CoV-2 positive U07.1 PAD (peripheral artery disease) I73.9 (1) Chronic pain Chronic pain type: other chronic pain Qualified Code(s): G89.29 - Other chronic pain
--- NOTE | 2024-10-14 20:25 | Communication Note ---
Date of Service: October 14, 2024 Palliative Med call worker I notified by nursing pt c/o severe unrelenting pain, stating to staff "no one cares about me" and "you all treat me like an addict" she was not taken to OR today but likely will go tomorrow, NPO after midnight i called pt in her room and she reiterated the above, states the pain in left axilla is like what she had a year ago, it is very severe and not same as her general pain Liliana insisted i should order more dilaudid for her. Advised her she is taking PO and goal remains as it always is with every admission, to get her to an oral regimen where pain is 4-5/10 and she can dc home. After dc, dr woo pcp will manage her ongoing pain. she refuses to take methadone. Her insurance does not cover long acting oxy or MS. She is on TDF 75mcg, which for now will not change - surgery, if done, should resolve improve her axillary pain. For now will increase oxyIR to 40mg PO q4h prn and Dilaudid to 0.3mg IV q3h prn if PO does not work (understand she will need IV more overnight once she is NPO). Plan reviewed with nursing. Orders written. PLEASE DO NOT ORDER ORAL DILAUDID. HER BASELINE PAIN IS MANAGED REASONABLY WITH ORAL OXYIR IF AN OPIOID ROTATION IS NEEDED THIS CAN BE DONE IN OP SETTING BY HER PCP. Liliana has a manipulative personality and will try to split teams. See previous notes for more guidance. Thank you for allowing us to participate in the ongoing care of this patient. Please page with any additional concerns. Ree Driscoll DNP Director, Palliative Medicine
[2024-10-14] MEDS: HYDROmorphone INJ 0.5 MG/0.5 ML SYR IV PRN (20:32)
[2024-10-14] MEDS: LORazepam 2 MG/1 ML VIAL IV PRN (20:33)
[2024-10-14] MEDS: HYDROCORTISONE 1% CRM 30 GM TUBE EXT PRN (20:36)
[2024-10-15] MEDS ORDERED: Nursing to Pharmacy Communication SCH ×2 (01:30→12:00)
[2024-10-15] MEDS: INSULIN ASPART PER UNIT CHARGE SC SCH ×2 (06:27→12:39)
[2024-10-15 08:00] LABS: Basophils # (auto) 0.03 K/uL (0.00-0.20); Basophils % (auto) 0.3 %; Eosinophils # (auto) 0.41 K/uL (0.00-0.50); Eosinophils % (auto) 4.3 %; Hematocrit (blood only) 31.6 % (37.0-47.0); Hemoglobin 9.6 g/dl (12.0-16.0); Immature Granulocytes # (auto) 0.03 K/uL (0.01-0.20); Immature Granulocytes % (auto) 0.3 %; Lymphocytes # (auto) 2.18 K/uL (1.20-3.40); Lymphocytes % (auto) 22.9 %; Mean Corpuscular Hemoglobin 23.6 pg (25.0-34.0); Mean Corpuscular Hgb Conc 30.4 g/dL (32.0-36.0); Mean Corpuscular Volume 77.8 fL (80.0-100.0); Mean Platelet Volume 9.9 fL (9.4-12.4); Monocytes % (auto) 9.4 %; Neutrophils # (auto) 5.98 K/uL (1.40-6.50); Neutrophils % (auto) 62.8 %; Platelet Count 247 K/uL (130-400); RDW Coefficient of Variation 18.4 % (11.5-14.5); RDW Standard Deviation 51.4 fL (36.4-46.3); Red Blood Count 4.06 M/uL (4.20-5.40); White Blood Count 9.53 K/ul (4.8-10.8)
[2024-10-15 08:17] LABS: BUN Creatinine Ratio 41.4 (10-20); Calcium 9.3 mg/dl (8.6-10.3); Creatinine Clr Calc Pharmacy 81.6 ml/min; Potassium 4.6 mmol/L (3.5-5.1)
[2024-10-15 08:32] LABS: Thyroid Stimulating Hormone 1.651 uIu/ml (0.300-4.500)
[2024-10-15 08:44] LABS: Folate (Folic Acid),Ser orPlas 6.1 ng/ml (>5.38)
--- NOTE | 2024-10-15 09:00 | Surgery Progress Note ---
Date of Service October 15, 2024 Assessment & Plan (1) Abscess: Plan: pt with left underarm pain and concern for abscess formation left upper arm erythema with hard/induration tracking to axilla pt reports tracking is new from yesterday denies drainage has been NPO since MN denies f/c , WBC wnl continue IV ABX will discuss with oncall surgeon Dr Ramirez and further recommendations will be forthcoming. Admission and Anticipated Discharge Date Admission Date: October 01, 2024 Supervising Physician Co-Signing Physician Notes Patient seen and examined, labs reviewed, agree with above. Consulted for left axillary cellulitis, ultrasound with phlegmon versus lymph node versus small abscess underlying the cellulitis. On exam she is afebrile stable vitals. She has an area of erythema with some more indurated and thicker areas but no palpable fluctuance or fluid collection. Erythema is decreased in size, still no drainable collection. At this point there is no indication for incision and drainage. Would recommend continued antibiotics. Surgery will follow peripherally, call with questions or concerns. Of note, the patient appeared frustrated that we were not going to perform surgery on her and told her that she was going to check herself out. I reiterated that there was no drmauricio nable fluid collection per my exam and that surgery would not help her issue at this time. Subjective pt with c/o ongoing left upper arm/axilla pain Review of Systems Constitutional: no fever and no chills Cardiovascular: no chest pain Integumentary: tender area in left underarm region, red, no drainage Physical Exam Constitutional: cooperative and comfortable; no acute distress Respiratory: normal respiratory effort and able to speak in complete sentences; no respiratory distress Cardiovascular: Rate/Rhythm: regular rate Skin: + erythema Results & Data Vital Signs (Past 12 Hours) Vital Signs Temp Pulse Resp BP Pulse Ox O2 Del Method 10/15/24 07:50 98.1 F 86 16 211/87 H 93 Room Air 10/14/24 21:02 98.6 F 81 16 148/72 H 93 Room Air PG Care Time/CCT Total # of Minutes Spent Total Time Spent with Patient: Total time spent is greater than 50% in coordination of care (as documented) at patient's floor/unit and/or counseling patient: Coding Level of Care Code 95662 SUB INP/OBS CARE 09/06MIN Diagnoses Abscess L02.91
[2024-10-15] MEDS: fentaNYL 100 MCG/HR TDSY TD SCH (15:32)
[2024-10-15] MEDS: CHECK fentaNYL PATCH PLACEMENT SCH (15:33)
--- NOTE | 2024-10-15 19:13 | Palliative Care Progress Note ---
Date of Service October 15, 2024 Assessment & Plan (1) Chronic pain: Plan: pt came to ED for intractable severe pain in LLE, groin, and L flank: Home regimen Oxy IR 20mg approx 8-10 daily, no relief Prior methadone was stopped by pt at low dose because "it didn't help at all" She has a long hx of stopping meds when she feels they do not help and then she will also delay her own care, to her own detriment She has a prior substance abuse history in distant past and is opioid tolerant +manipulative behaviors, splitting teams At home pt was using oral oxycodone 160 - 200mg daily without relief 200mg oxy = 400mg oral MS equivalents (OMEs) 400mg PO MS = 133mg IV MS = dilaudid 27mg IV daily equivalent Started TDF last week for opiate rotation It is noted she has used far less Dilaudid with PLANT TAXONOMIST vs PRN dosing and pain has been better managed with PLANT TAXONOMIST Today's adjustments: Continue Dilaudid 0.3mg q3H prn pain unrelieved by oral meds Continue Oxy IR 40mg PO q4h prn pain Hold for somnolence or RR less than 14; please document RR with each dose administration. TDF increased to 100mcg q72hr (2) Nausea & vomiting: Plan: Resolved (3) Palliative care by specialist: Plan: Palliative care continues to follow for pain/symptom mgmt and ACP. (4) Therapeutic opioid-induced constipation (OIC): Plan: not currently an issue, pt c/o soft stool Plan Estrada has longstanding complex chronic pain and psych issues for which she has been without psychiatry care for over 2 years. Recommend formal psychiatry consult for medication revamp and new regimen as current meds are no longer helping despite several dose escalation incl Seroquel. Estrada has a hx manipulative behavior/splitting teams. She benefits with clear/consistent communication across disciplines. It is important for all providers to maintain a unified approach, delivering tanner information in a consistent and direct manner. Attempts to assign blame or introduce misconceptions should be met with a neutral and factual response. A collaborative, non-confrontational approach will help foster a therapeutic relationship, and it is essential to avoid blaming the patient for her challenges. This approach will improve communication and support more effective engagement with her care. Pain meds as noted above Thank you for allowing us to participate in the ongoing care of this patient. Please page with any additional concerns. Ree Driscoll DNP Director, Palliative Medicine Admission and Anticipated Discharge Date Admission Date: October 01, 2024 Subjective estrada is seen bedside she is tearful and c/o inc pain, not being managed well and feels she is not being treated fairly bc 'everyone's treating me like i'm an addict' she states the left axillary abscess is hurting very much she feels she needs surgery bc this is how a similar situation improved a year ago she states 'i haven't slept for weeks, nothing is helping. i came here for help and i don't think i'm any better' appetite is stable taking po without issue no n/v/d she has not followed up with psychiatry for over 1-2 years, last went to [facility] for OP psych but stopped after a disgreement w/provider her PCP Dr Vernon manages her pain Review of Systems Review of Systems: All systems reviewed & are unremarkable except as noted in Subjective Physical Exam Physical Exam: awake/alert, no distress Constitutional: well developed, + ill appearing, + thin and cooperative Eyes: PERRL, conjunctivae normal, anicteric sclerae ENMT: Mouth: + dentition abnormality, + gingival abnormality, + dental caries and + poor dentition Neck: normal visual inspection and trachea midline Thyroid: normal thyroid Respiratory: normal respiratory effort, lungs clear to auscultation normal respiratory effort Cardiovascular: Rate/Rhythm: regular rate and regular rhythm Vessels: dorsalis pedis pulses present Extremities: normal capillary refill; no edema Gastrointestinal (Abdomen): normal bowel sounds, soft, nontender, no hepatosplenomegaly Musculoskeletal: Right BKA, otherwise GONZALES with strength and purpose Skin: left axillary region with hard/indurated area of fluctuance with +erythema, +tender to palpation, on upper/inner left arm there is an area of erythema and tenderness. there is induration and area of fluctuance appreciated. there is redness noted in the upper medial side of her arm Neurologic: PERRL, EOMI, accommodation nl, no face palsy, no dysarthria Psychiatric: Orientation: alert and oriented x 3 Affect: + anxious affect Mood: + anxious mood Results & Data Vital Signs (Past 12 Hours) Vital Signs Temp Pulse Resp BP Pulse Ox O2 Del Method 10/15/24 16:41 36.8 C 67 16 128/67 93 Room Air 10/15/24 15:53 69 92/57 L 10/15/24 07:50 36.7 C 86 16 211/87 H 93 Room Air Laboratory Results 10/15/24 10/15/24 10/15/24 Range/Units 16:43 11:36 07:35 WBC 9.53 (4.8-10.8) K/ul RBC 4.06 L (4.20-5.40) M/uL Hgb 9.6 L (12.0-16.0) g/dl Hct 31.6 L (37.0-47.0) % MCV 77.8 L (80.0-100.0) fL MCH 23.6 L (25.0-34.0) pg MCHC 30.4 L (32.0-36.0) g/dL RDW Std Deviation 51.4 H (36.4-46.3) fL RDW Coeff of Maria Del Carmen 18.4 H (11.5-14.5) % Plt Count 247 (130-400) K/uL MPV 9.9 (9.4-12.4) fL Immature Gran % (Auto) 0.3 % Neut % (Auto) 62.8 % Lymph % (Auto) 22.9 % [place] % (Auto) 9.4 % Eos % (Auto) 4.3 % Baso % (Auto) 0.3 % Neut # (Auto) 5.98 (1.40-6.50) K/uL Lymph # (Auto) 2.18 (1.20-3.40) K/uL [place] # (Auto) 0.90 H (0.11-0.59) K/uL Eos # (Auto) 0.41 (0.00-0.50) K/uL Baso # (Auto) 0.03 (0.00-0.20) K/uL Immature Gran # (Auto) 0.03 (0.01-0.20) K/uL Sodium 138 (136-145) mmol/L Potassium 4.6 (3.5-5.1) mmol/L Chloride 100 (98-107) mmol/L Carbon Dioxide 35 H (21-32) mmol/L Anion Gap 3 (3-11) BUN 24 H (6-23) mg/dl Creatinine 0.58 L (0.6-1.2) mg/dl Est Cr Clr Drug Dosing 81.6 ml/min eGFR 103.54 BUN/Creatinine Ratio 41.4 H (10-20) Glucose 116 H (70-99(Fasting)) mg/dl POC Glucose 189 H 136 H (70-99) mg/dl Calcium 9.3 (8.6-10.3) mg/dl Magnesium (1.7-2.4) mg/dl Iron (35-150) mcg/dl TIBC (250-450) mcg/dl Transferrin (200-360) mg/dl Transferrin % Sat (15-50) % Ferritin (8-388) ng/ml Total Bilirubin (0.2-1.0) mg/dl AST (13-39) U/L ALT (7-52) U/L Alkaline Phosphatase (34-104) U/L C-Reactive Protein (0-0.5) mg/dl Total Protein (6.0-8.3) gm/dl Albumin (3.4-5.0) gm/dl Globulin (2.5-4.0) gm/dl Albumin/Globulin Ratio (0.9-2) Vitamin B12 258 (180-914) pg/ml Folate 6.10 (>5.38) ng/ml TSH 1.651 (0.300-4.500) uIu/ml 10/15/24 10/14/24 10/14/24 Range/Units 06:25 20:25 16:50 WBC (4.8-10.8) K/ul RBC (4.20-5.40) M/uL Hgb (12.0-16.0) g/dl Hct (37.0-47.0) % MCV (80.0-100.0) fL MCH (25.0-34.0) pg MCHC (32.0-36.0) g/dL RDW Std Deviation (36.4-46.3) fL RDW Coeff of Maria Del Carmen (11.5-14.5) % Plt Count (130-400) K/uL MPV (9.4-12.4) fL Immature Gran % (Auto) % Neut % (Auto) % Lymph % (Auto) % [place] % (Auto) % Eos % (Auto) % Baso % (Auto) % Neut # (Auto) (1.40-6.50) K/uL Lymph # (Auto) (1.20-3.40) K/uL [place] # (Auto) (0.11-0.59) K/uL Eos # (Auto) (0.00-0.50) K/uL Baso # (Auto) (0.00-0.20) K/uL Immature Gran # (Auto) (0.01-0.20) K/uL Sodium (136-145) mmol/L Potassium (3.5-5.1) mmol/L Chloride (98-107) mmol/L Carbon Dioxide (21-32) mmol/L Anion Gap (3-11) BUN (6-23) mg/dl Creatinine (0.6-1.2) mg/dl Est Cr Clr Drug Dosing ml/min eGFR BUN/Creatinine Ratio (10-20) Glucose (70-99(Fasting)) mg/dl POC Glucose 131 H 168 H 120 H (70-99) mg/dl Calcium (8.6-10.3) mg/dl Magnesium (1.7-2.4) mg/dl Iron (35-150) mcg/dl TIBC (250-450) mcg/dl Transferrin (200-360) mg/dl Transferrin % Sat (15-50) % Ferritin (8-388) ng/ml Total Bilirubin (0.2-1.0) mg/dl AST (13-39) U/L ALT (7-52) U/L Alkaline Phosphatase (34-104) U/L C-Reactive Protein (0-0.5) mg/dl Total Protein (6.0-8.3) gm/dl Albumin (3.4-5.0) gm/dl Globulin (2.5-4.0) gm/dl Albumin/Globulin Ratio (0.9-2) Vitamin B12 (180-914) pg/ml Folate (>5.38) ng/ml TSH (0.300-4.500) uIu/ml 10/14/24 10/14/24 10/14/24 Range/Units 11:41 10:05 05:54 WBC 8.99 (4.8-10.8) K/ul RBC 4.08 L (4.20-5.40) M/uL Hgb 9.6 L (12.0-16.0) g/dl Hct 31.6 L (37.0-47.0) % MCV 77.5 L (80.0-100.0) fL MCH 23.5 L (25.0-34.0) pg MCHC 30.4 L (32.0-36.0) g/dL RDW Std Deviation 51.5 H (36.4-46.3) fL RDW Coeff of Maria Del Carmen 18.4 H (11.5-14.5) % Plt Count 254 (130-400) K/uL MPV 10.2 (9.4-12.4) fL Immature Gran % (Auto) 0.3 % Neut % (Auto) 63.0 % Lymph % (Auto) 20.4 % [place] % (Auto) 11.8 % Eos % (Auto) 3.9 % Baso % (Auto) 0.6 % Neut # (Auto) 5.67 (1.40-6.50) K/uL Lymph # (Auto) 1.83 (1.20-3.40) K/uL [place] # (Auto) 1.06 H (0.11-0.59) K/uL Eos # (Auto) 0.35 (0.00-0.50) K/uL Baso # (Auto) 0.05 (0.00-0.20) K/uL Immature Gran # (Auto) 0.03 (0.01-0.20) K/uL Sodium 137 (136-145) mmol/L Potassium 4.6 (3.5-5.1) mmol/L Chloride 102 (98-107) mmol/L Carbon Dioxide 32 (21-32) mmol/L Anion Gap 3 (3-11) BUN 30 H (6-23) mg/dl Creatinine 0.58 L (0.6-1.2) mg/dl Est Cr Clr Drug Dosing 81.6 ml/min eGFR 103.54 BUN/Creatinine Ratio 51.7 H (10-20) Glucose 142 H (70-99(Fasting)) mg/dl POC Glucose 151 H 139 H (70-99) mg/dl Calcium 9.6 (8.6-10.3) mg/dl Magnesium 1.7 (1.7-2.4) mg/dl Iron (35-150) mcg/dl TIBC (250-450) mcg/dl Transferrin (200-360) mg/dl Transferrin % Sat (15-50) % Ferritin (8-388) ng/ml Total Bilirubin (0.2-1.0) mg/dl AST (13-39) U/L ALT (7-52) U/L Alkaline Phosphatase (34-104) U/L C-Reactive Protein (0-0.5) mg/dl Total Protein (6.0-8.3) gm/dl Albumin (3.4-5.0) gm/dl Globulin (2.5-4.0) gm/dl Albumin/Globulin Ratio (0.9-2) Vitamin B12 (180-914) pg/ml Folate (>5.38) ng/ml TSH (0.300-4.500) uIu/ml 10/13/24 10/13/24 10/13/24 Range/Units 20:40 16:42 11:50 WBC (4.8-10.8) K/ul RBC (4.20-5.40) M/uL Hgb (12.0-16.0) g/dl Hct (37.0-47.0) % MCV (80.0-100.0) fL MCH (25.0-34.0) pg MCHC (32.0-36.0) g/dL RDW Std Deviation (36.4-46.3) fL RDW Coeff of Maria Del Carmen (11.5-14.5) % Plt Count (130-400) K/uL MPV (9.4-12.4) fL Immature Gran % (Auto) % Neut % (Auto) % Lymph % (Auto) % [place] % (Auto) % Eos % (Auto) % Baso % (Auto) % Neut # (Auto) (1.40-6.50) K/uL Lymph # (Auto) (1.20-3.40) K/uL [place] # (Auto) (0.11-0.59) K/uL Eos # (Auto) (0.00-0.50) K/uL Baso # (Auto) (0.00-0.20) K/uL Immature Gran # (Auto) (0.01-0.20) K/uL Sodium (136-145) mmol/L Potassium (3.5-5.1) mmol/L Chloride (98-107) mmol/L Carbon Dioxide (21-32) mmol/L Anion Gap (3-11) BUN (6-23) mg/dl Creatinine (0.6-1.2) mg/dl Est Cr Clr Drug Dosing ml/min eGFR BUN/Creatinine Ratio (10-20) Glucose (70-99(Fasting)) mg/dl POC Glucose 133 H 156 H 80 (70-99) mg/dl Calcium (8.6-10.3) mg/dl Magnesium (1.7-2.4) mg/dl Iron (35-150) mcg/dl TIBC (250-450) mcg/dl Transferrin (200-360) mg/dl Transferrin % Sat (15-50) % Ferritin (8-388) ng/ml Total Bilirubin (0.2-1.0) mg/dl AST (13-39) U/L ALT (7-52) U/L Alkaline Phosphatase (34-104) U/L C-Reactive Protein (0-0.5) mg/dl Total Protein (6.0-8.3) gm/dl Albumin (3.4-5.0) gm/dl Globulin (2.5-4.0) gm/dl Albumin/Globulin Ratio (0.9-2) Vitamin B12 (180-914) pg/ml Folate (>5.38) ng/ml TSH (0.300-4.500) uIu/ml 10/13/24 10/12/24 10/12/24 Range/Units 07:45 20:19 16:40 WBC (4.8-10.8) K/ul RBC (4.20-5.40) M/uL Hgb (12.0-16.0) g/dl Hct (37.0-47.0) % MCV (80.0-100.0) fL MCH (25.0-34.0) pg MCHC (32.0-36.0) g/dL RDW Std Deviation (36.4-46.3) fL RDW Coeff of Maria Del Carmen (11.5-14.5) % Plt Count (130-400) K/uL MPV (9.4-12.4) fL Immature Gran % (Auto) % Neut % (Auto) % Lymph % (Auto) % [place] % (Auto) % Eos % (Auto) % Baso % (Auto) % Neut # (Auto) (1.40-6.50) K/uL Lymph # (Auto) (1.20-3.40) K/uL [place] # (Auto) (0.11-0.59) K/uL Eos # (Auto) (0.00-0.50) K/uL Baso # (Auto) (0.00-0.20) K/uL Immature Gran # (Auto) (0.01-0.20) K/uL Sodium (136-145) mmol/L Potassium (3.5-5.1) mmol/L Chloride (98-107) mmol/L Carbon Dioxide (21-32) mmol/L Anion Gap (3-11) BUN (6-23) mg/dl Creatinine (0.6-1.2) mg/dl Est Cr Clr Drug Dosing ml/min eGFR BUN/Creatinine Ratio (10-20) Glucose (70-99(Fasting)) mg/dl POC Glucose 149 H 157 H 89 (70-99) mg/dl Calcium (8.6-10.3) mg/dl Magnesium (1.7-2.4) mg/dl Iron (35-150) mcg/dl TIBC (250-450) mcg/dl Transferrin (200-360) mg/dl Transferrin % Sat (15-50) % Ferritin (8-388) ng/ml Total Bilirubin (0.2-1.0) mg/dl AST (13-39) U/L ALT (7-52) U/L Alkaline Phosphatase (34-104) U/L C-Reactive Protein (0-0.5) mg/dl Total Protein (6.0-8.3) gm/dl Albumin (3.4-5.0) gm/dl Globulin (2.5-4.0) gm/dl Albumin/Globulin Ratio (0.9-2) Vitamin B12 (180-914) pg/ml Folate (>5.38) ng/ml TSH (0.300-4.500) uIu/ml 10/12/24 10/12/24 10/11/24 Range/Units 11:38 07:47 20:51 WBC (4.8-10.8) K/ul RBC (4.20-5.40) M/uL Hgb (12.0-16.0) g/dl Hct (37.0-47.0) % MCV (80.0-100.0) fL MCH (25.0-34.0) pg MCHC (32.0-36.0) g/dL RDW Std Deviation (36.4-46.3) fL RDW Coeff of Maria Del Carmen (11.5-14.5) % Plt Count (130-400) K/uL MPV (9.4-12.4) fL Immature Gran % (Auto) % Neut % (Auto) % Lymph % (Auto) % [place] % (Auto) % Eos % (Auto) % Baso % (Auto) % Neut # (Auto) (1.40-6.50) K/uL Lymph # (Auto) (1.20-3.40) K/uL [place] # (Auto) (0.11-0.59) K/uL Eos # (Auto) (0.00-0.50) K/uL Baso # (Auto) (0.00-0.20) K/uL Immature Gran # (Auto) (0.01-0.20) K/uL Sodium (136-145) mmol/L Potassium (3.5-5.1) mmol/L Chloride (98-107) mmol/L Carbon Dioxide (21-32) mmol/L Anion Gap (3-11) BUN (6-23) mg/dl Creatinine (0.6-1.2) mg/dl Est Cr Clr Drug Dosing ml/min eGFR BUN/Creatinine Ratio (10-20) Glucose (70-99(Fasting)) mg/dl POC Glucose 103 H 111 H 118 H (70-99) mg/dl Calcium (8.6-10.3) mg/dl Magnesium (1.7-2.4) mg/dl Iron (35-150) mcg/dl TIBC (250-450) mcg/dl Transferrin (200-360) mg/dl Transferrin % Sat (15-50) % Ferritin (8-388) ng/ml Total Bilirubin (0.2-1.0) mg/dl AST (13-39) U/L ALT (7-52) U/L Alkaline Phosphatase (34-104) U/L C-Reactive Protein (0-0.5) mg/dl Total Protein (6.0-8.3) gm/dl Albumin (3.4-5.0) gm/dl Globulin (2.5-4.0) gm/dl Albumin/Globulin Ratio (0.9-2) Vitamin B12 (180-914) pg/ml Folate (>5.38) ng/ml TSH (0.300-4.500) uIu/ml 10/11/24 10/11/24 10/11/24 Range/Units 16:32 11:32 08:11 WBC (4.8-10.8) K/ul RBC (4.20-5.40) M/uL Hgb (12.0-16.0) g/dl Hct (37.0-47.0) % MCV (80.0-100.0) fL MCH (25.0-34.0) pg MCHC (32.0-36.0) g/dL RDW Std Deviation (36.4-46.3) fL RDW Coeff of Maria Del Carmen (11.5-14.5) % Plt Count (130-400) K/uL MPV (9.4-12.4) fL Immature Gran % (Auto) % Neut % (Auto) % Lymph % (Auto) % [place] % (Auto) % Eos % (Auto) % Baso % (Auto) % Neut # (Auto) (1.40-6.50) K/uL Lymph # (Auto) (1.20-3.40) K/uL [place] # (Auto) (0.11-0.59) K/uL Eos # (Auto) (0.00-0.50) K/uL Baso # (Auto) (0.00-0.20) K/uL Immature Gran # (Auto) (0.01-0.20) K/uL Sodium (136-145) mmol/L Potassium (3.5-5.1) mmol/L Chloride (98-107) mmol/L Carbon Dioxide (21-32) mmol/L Anion Gap (3-11) BUN (6-23) mg/dl Creatinine (0.6-1.2) mg/dl Est Cr Clr Drug Dosing ml/min eGFR BUN/Creatinine Ratio (10-20) Glucose (70-99(Fasting)) mg/dl POC Glucose 157 H 82 137 H (70-99) mg/dl Calcium (8.6-10.3) mg/dl Magnesium (1.7-2.4) mg/dl Iron (35-150) mcg/dl TIBC (250-450) mcg/dl Transferrin (200-360) mg/dl Transferrin % Sat (15-50) % Ferritin (8-388) ng/ml Total Bilirubin (0.2-1.0) mg/dl AST (13-39) U/L ALT (7-52) U/L Alkaline Phosphatase (34-104) U/L C-Reactive Protein (0-0.5) mg/dl Total Protein (6.0-8.3) gm/dl Albumin (3.4-5.0) gm/dl Globulin (2.5-4.0) gm/dl Albumin/Globulin Ratio (0.9-2) Vitamin B12 (180-914) pg/ml Folate (>5.38) ng/ml TSH (0.300-4.500) uIu/ml 10/11/24 10/10/24 10/10/24 Range/Units 06:36 20:22 16:48 WBC 9.65 (4.8-10.8) K/ul RBC 4.74 (4.20-5.40) M/uL Hgb 11.3 L (12.0-16.0) g/dl Hct 35.9 L (37.0-47.0) % MCV 75.7 L (80.0-100.0) fL MCH 23.8 L (25.0-34.0) pg MCHC 31.5 L (32.0-36.0) g/dL RDW Std Deviation 48.2 H (36.4-46.3) fL RDW Coeff of Maria Del Carmen 17.6 H (11.5-14.5) % Plt Count 289 (130-400) K/uL MPV 10.2 (9.4-12.4) fL Immature Gran % (Auto) 0.3 % Neut % (Auto) 60.9 % Lymph % (Auto) 25.0 % [place] % (Auto) 9.8 % Eos % (Auto) 3.5 % Baso % (Auto) 0.5 % Neut # (Auto) 5.87 (1.40-6.50) K/uL Lymph # (Auto) 2.41 (1.20-3.40) K/uL [place] # (Auto) 0.95 H (0.11-0.59) K/uL Eos # (Auto) 0.34 (0.00-0.50) K/uL Baso # (Auto) 0.05 (0.00-0.20) K/uL Immature Gran # (Auto) 0.03 (0.01-0.20) K/uL Sodium 137 (136-145) mmol/L Potassium 4.7 (3.5-5.1) mmol/L Chloride 101 (98-107) mmol/L Carbon Dioxide 32 (21-32) mmol/L Anion Gap 4 (3-11) BUN 27 H (6-23) mg/dl Creatinine 0.65 (0.6-1.2) mg/dl Est Cr Clr Drug Dosing 72.8 ml/min eGFR 100.73 BUN/Creatinine Ratio 41.5 H (10-20) Glucose 133 H (70-99(Fasting)) mg/dl POC Glucose 109 H 203 H (70-99) mg/dl Calcium 9.3 (8.6-10.3) mg/dl Magnesium (1.7-2.4) mg/dl Iron 33 L (35-150) mcg/dl TIBC 428 (250-450) mcg/dl Transferrin 306 (200-360) mg/dl Transferrin % Sat 8 L (15-50) % Ferritin 24.2 (8-388) ng/ml Total Bilirubin (0.2-1.0) mg/dl AST (13-39) U/L ALT (7-52) U/L Alkaline Phosphatase (34-104) U/L C-Reactive Protein (0-0.5) mg/dl Total Protein (6.0-8.3) gm/dl Albumin (3.4-5.0) gm/dl Globulin (2.5-4.0) gm/dl Albumin/Globulin Ratio (0.9-2) Vitamin B12 (180-914) pg/ml Folate (>5.38) ng/ml TSH (0.300-4.500) uIu/ml 10/10/24 10/10/24 10/10/24 Range/Units 15:25 11:25 07:46 WBC 11.03 H (4.8-10.8) K/ul RBC 5.01 (4.20-5.40) M/uL Hgb 12.0 (12.0-16.0) g/dl Hct 37.9 (37.0-47.0) % MCV 75.6 L (80.0-100.0) fL MCH 24.0 L (25.0-34.0) pg MCHC 31.7 L (32.0-36.0) g/dL RDW Std Deviation 48.1 H (36.4-46.3) fL RDW Coeff of Maria Del Carmen 17.7 H (11.5-14.5) % Plt Count 292 (130-400) K/uL MPV 9.7 (9.4-12.4) fL Immature Gran % (Auto) 0.3 % Neut % (Auto) 62.1 % Lymph % (Auto) 24.1 % [place] % (Auto) 8.7 % Eos % (Auto) 4.3 % Baso % (Auto) 0.5 % Neut # (Auto) 6.86 H (1.40-6.50) K/uL Lymph # (Auto) 2.66 (1.20-3.40) K/uL [place] # (Auto) 0.96 H (0.11-0.59) K/uL Eos # (Auto) 0.47 (0.00-0.50) K/uL Baso # (Auto) 0.05 (0.00-0.20) K/uL Immature Gran # (Auto) 0.03 (0.01-0.20) K/uL Sodium 137 (136-145) mmol/L Potassium 4.8 (3.5-5.1) mmol/L Chloride 99 (98-107) mmol/L Carbon Dioxide 32 (21-32) mmol/L Anion Gap 6 (3-11) BUN 20 (6-23) mg/dl Creatinine 0.69 (0.6-1.2) mg/dl Est Cr Clr Drug Dosing 68.6 ml/min eGFR 99.29 BUN/Creatinine Ratio 29.0 H (10-20) Glucose 120 H (70-99(Fasting)) mg/dl POC Glucose 86 178 H (70-99) mg/dl Calcium 9.1 (8.6-10.3) mg/dl Magnesium (1.7-2.4) mg/dl Iron (35-150) mcg/dl TIBC (250-450) mcg/dl Transferrin (200-360) mg/dl Transferrin % Sat (15-50) % Ferritin (8-388) ng/ml Total Bilirubin 0.2 (0.2-1.0) mg/dl AST 12 L (13-39) U/L ALT 15 (7-52) U/L Alkaline Phosphatase 48 (34-104) U/L C-Reactive Protein < 0.50 (0-0.5) mg/dl Total Protein 6.1 (6.0-8.3) gm/dl Albumin 3.9 (3.4-5.0) gm/dl Globulin 2.2 L (2.5-4.0) gm/dl Albumin/Globulin Ratio 1.8 (0.9-2) Vitamin B12 (180-914) pg/ml Folate (>5.38) ng/ml TSH (0.300-4.500) uIu/ml 10/09/24 10/09/24 10/09/24 Range/Units 20:02 16:53 11:35 WBC (4.8-10.8) K/ul RBC (4.20-5.40) M/uL Hgb (12.0-16.0) g/dl Hct (37.0-47.0) % MCV (80.0-100.0) fL MCH (25.0-34.0) pg MCHC (32.0-36.0) g/dL RDW Std Deviation (36.4-46.3) fL RDW Coeff of Maria Del Carmen (11.5-14.5) % Plt Count (130-400) K/uL MPV (9.4-12.4) fL Immature Gran % (Auto) % Neut % (Auto) % Lymph % (Auto) % [place] % (Auto) % Eos % (Auto) % Baso % (Auto) % Neut # (Auto) (1.40-6.50) K/uL Lymph # (Auto) (1.20-3.40) K/uL [place] # (Auto) (0.11-0.59) K/uL Eos # (Auto) (0.00-0.50) K/uL Baso # (Auto) (0.00-0.20) K/uL Immature Gran # (Auto) (0.01-0.20) K/uL Sodium (136-145) mmol/L Potassium (3.5-5.1) mmol/L Chloride (98-107) mmol/L Carbon Dioxide (21-32) mmol/L Anion Gap (3-11) BUN (6-23) mg/dl Creatinine (0.6-1.2) mg/dl Est Cr Clr Drug Dosing ml/min eGFR BUN/Creatinine Ratio (10-20) Glucose (70-99(Fasting)) mg/dl POC Glucose 102 H 122 H 137 H (70-99) mg/dl Calcium (8.6-10.3) mg/dl Magnesium (1.7-2.4) mg/dl Iron (35-150) mcg/dl TIBC (250-450) mcg/dl Transferrin (200-360) mg/dl Transferrin % Sat (15-50) % Ferritin (8-388) ng/ml Total Bilirubin (0.2-1.0) mg/dl AST (13-39) U/L ALT (7-52) U/L Alkaline Phosphatase (34-104) U/L C-Reactive Protein (0-0.5) mg/dl Total Protein (6.0-8.3) gm/dl Albumin (3.4-5.0) gm/dl Globulin (2.5-4.0) gm/dl Albumin/Globulin Ratio (0.9-2) Vitamin B12 (180-914) pg/ml Folate (>5.38) ng/ml TSH (0.300-4.500) uIu/ml 10/09/24 10/08/24 Range/Units 07:47 20:11 WBC (4.8-10.8) K/ul RBC (4.20-5.40) M/uL Hgb (12.0-16.0) g/dl Hct (37.0-47.0) % MCV (80.0-100.0) fL MCH (25.0-34.0) pg MCHC (32.0-36.0) g/dL RDW Std Deviation (36.4-46.3) fL RDW Coeff of Maria Del Carmen (11.5-14.5) % Plt Count (130-400) K/uL MPV (9.4-12.4) fL Immature Gran % (Auto) % Neut % (Auto) % Lymph % (Auto) % [place] % (Auto) % Eos % (Auto) % Baso % (Auto) % Neut # (Auto) (1.40-6.50) K/uL Lymph # (Auto) (1.20-3.40) K/uL [place] # (Auto) (0.11-0.59) K/uL Eos # (Auto) (0.00-0.50) K/uL Baso # (Auto) (0.00-0.20) K/uL Immature Gran # (Auto) (0.01-0.20) K/uL Sodium (136-145) mmol/L Potassium (3.5-5.1) mmol/L Chloride (98-107) mmol/L Carbon Dioxide (21-32) mmol/L Anion Gap (3-11) BUN (6-23) mg/dl Creatinine (0.6-1.2) mg/dl Est Cr Clr Drug Dosing ml/min eGFR BUN/Creatinine Ratio (10-20) Glucose (70-99(Fasting)) mg/dl POC Glucose 127 H 125 H (70-99) mg/dl Calcium (8.6-10.3) mg/dl Magnesium (1.7-2.4) mg/dl Iron (35-150) mcg/dl TIBC (250-450) mcg/dl Transferrin (200-360) mg/dl Transferrin % Sat (15-50) % Ferritin (8-388) ng/ml Total Bilirubin (0.2-1.0) mg/dl AST (13-39) U/L ALT (7-52) U/L Alkaline Phosphatase (34-104) U/L C-Reactive Protein (0-0.5) mg/dl Total Protein (6.0-8.3) gm/dl Albumin (3.4-5.0) gm/dl Globulin (2.5-4.0) gm/dl Albumin/Globulin Ratio (0.9-2) Vitamin B12 (180-914) pg/ml Folate (>5.38) ng/ml TSH (0.300-4.500) uIu/ml Diagnostic Findings Lower Extremity CTA 10/01/24 14:21 CT ANGIOGRAPHY OF THE LEFT LOWER EXTREMITY CLINICAL HISTORY: Groin pain down to foot, hx of PAD. COMPARISON STUDY: Left lower extremity arterial Doppler ultrasound December 30, 2023. CTA with runoff July 14, 2021. CTA of the abdomen and pelvis July 01, 2024. TECHNIQUE: Helical axial images of the mid to lower abdomen, pelvis and left lower extremity were obtained during arterial phase following intravenous injection 120 cc of Optiray 320 IV. Sagittal and coronal reconstructions were viewed as well as maximal intensity projections on an independent 3-D workstation. Automated exposure control was utilized for the study. A dose lowering technique was utilized adhering to the principles of ALARA. FINDINGS: Visualized portions of the liver are unremarkable on arterial phase exam. There is no biliary ductal dilatation status post cholecystectomy. Spleen, adrenal glands and pancreas are unremarkable. There is no evidence for a bowel obstruction. The caliber and wall thickness of small and large bowel are normal. There are postoperative findings within the spine. There is no abdominal lymphadenopathy. No fluid collections are present. Postoperative findings consistent with right below-knee amputation. There is extensive plaque with multifocal stenoses within the right lower extremity vasculature. There is extensive atherosclerotic plaque within the abdominal aorta. No abdominal aortic aneurysm is present. Branch vessels are patent. There is extensive plaque within the left lower extremity vasculature. The left common iliac artery is patent. There is mild stenosis of the left external iliac artery. There is moderate stenosis of the left common femoral artery. There are moderate multifocal stenoses within the left superficial femoral artery. The left popliteal artery is patent. There is occlusion of the proximal left anterior tibial artery with distal reconstitution. The left dorsalis pedis is patent. The left peroneal artery is patent to the level of the syndesmosis. Multifocal stenoses of the left posterior tibial artery are present with occlusion and distal reconstitution. There is trace flow within the distal left posterior tibial artery. IMPRESSION: 1. Extensive atherosclerotic plaque within the left lower extremity. 2. Moderate multifocal stenoses within the left superficial femoral artery. 3. Occlusion of the proximal left anterior tibial artery which is new since CT of July 14, 2021. Distal reconstitution with patent left dorsalis pedis. 4. Occlusion of the distal left posterior tibial artery with distal reconstitution. Overall, significantly diminished flow within the left calf vessels. 5. Extensive plaque within the abdominal aorta. No aneurysm or stenosis within the abdominal aorta. Patent left common iliac artery. 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 6. Status post right below knee amputation. ACT 112: Negative or not required by law. Electronically signed by: Wilver Powell M.D. 10/01/2024 4:38 PM Ankle Brachial Index 10/02/24 13:56 Clinical history: Left foot pain. 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 A right NATHAN is therefore not possible The left NATHAN is diminished at 0.82. Blood flow could not be detected within the left toes Impression: 1. Diminished left NATHAN at 0.82. This is indicative of mild to moderate severity peripheral arterial disease 2. Lack of detectable blood flow within the left toes, which could be due to distal arterial occlusion Electronically signed by Jose Jones 10-02-2024 4:17 PM Axilla US 10/13/24 15:25 EXAM: US axilla LT CLINICAL HISTORY: US left underarm area of redness to eval abscess. TECHNIQUE: Ultrasound of left axilla performed using a linear high frequency probe and multiple images obtained. COMPARISON: None. FINDINGS: 2 complex areas are seen in the left axilla, measuring 1.7 x 1.2 x 0.5 cm and 0.6 x 0.3 x 0.8 cm. These are associated with adjacent edema and thickening of the fat. Multiple internal Echoes and debris noted Left axilla 5.3 x .7 x 2.0 cm area of redness IMPRESSION: 1. The above-mentioned finding could represent a small abscess/inflamed lymph node with adjacent inflamed fat. 2. Advised clinical correlation or Further evaluation with CT can be obtained Electronically signed by Mika De Luna 10-13-2024 6:26 PM PG Care Time/CCT Total # of Minutes Spent Total Time Spent with Patient: Total time spent is greater than 50% in coordination of care (as documented) at patient's floor/unit and/or counseling patient: I spent 65 minutes overall addressing this case: 15 min in medical data review/discussion with referring provider(s) and/or preparation for the visit 20 min in direct interaction with the patient/exam 00 min in Advance Care Planning/Goals of Care discussions as detailed above in note (must be >16min) 10 min in subsequent review and synthesis of assessment and plan 20min communicating with other providers regarding the patient's case: primary team, nursing, care mgt/TBeilar assisting with TDF prior auth [place] [address] SUB INP/OBS CARE 350MIN Patient Type Established Medical Decision Making High Complexity Diagnoses Chronic pain syndrome G89.4 Chronic pain type: chronic pain syndrome Nausea & vomiting R11.2 Vomiting type: unspecified Palliative care by specialist Z51.5 Therapeutic opioid-induced constipation (OIC) K59.03; T40.2X5A (1) Chronic pain Chronic pain type: chronic pain syndrome Qualified Code(s): G89.4 - Chronic pain syndrome (2) Nausea & vomiting Vomiting type: unspecified Qualified Code(s): R11.2 - Nausea with vomiting, unspecified
--- NOTE | 2024-10-15 19:50 | Hospitalist Progress Note ---
Date of Service October 15, 2024 Assessment & Plan (1) Chronic pain: (2) Abscess: (3) PAD (peripheral artery disease): (4) Anemia: Plan This patient is a 59-year-old female with a history of chronic pain, significant PAD s/p right BKA and amputations of her left toes, DM2 with neuropathy, who has been intermittently in our hospital with paroxysms of uncontrolled pain. Patient has seen pain management and multiple other specialties. She has at times had vascular procedures to improve blood flow without great improvement in her pain. Patient has failed an ilio inguinal nerve block in the past. She presents once again with her chronic left and right groin pain requiring paren teral opiate therapy # Acute on chronic pain: Her pain is similar to what has been described in the past. 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 The pain is not consistent with ischemia, she has been seen by vascular medicine Dr Lin in December 2023 and again this admission for similar pain and not suspected to be due to ischemia and she has good dorsalis pedis pulse on palpation. Her left foot is cool but with good capillary refill. CTA 10/01/24 shows some progression of PAD To LLE. Patient has failed different long and short acting opioids to include MS Contin, Morphine, and methadone, Fentanyl patch Etiology is most likely neuropathic and ischemic pain with parts of this likely being hyperalgesia -Palliative Med managing pain control -increase fentanyl patch to 100 mcg on 10/15 -increased Lyrica to 150mg tid, continue duloxetine -increased oxycodone to 40mg po q4h prn breakthrough pain on 10/14 -continue dilaudid IV 0.3mg IV q3h prn breakthrough pain if oxy not effective -Patient agreeable to referral to see a therapist on an intensive basis as an outpatient #PAD -with a h/o right BKA, left toe amputations, multiple angioplasties. Seen by Vascular Med here and nothing acute that needs intervention -continue on aspirin and plavix -added pentoxifylline to try to improve circulation in case her pain is from any ischemia. #Left axillary lymphadenitis/abscess/cellulitis-developed acute onset of painful swollen lumps in left axilla on 10/10. Suspected lymphadenitis initially and then formed a fluctuant mass in left axilla consistent with abscess/phlegmon. Has been on Daptomycin since 10/10 and Levaquin since 10/12. Leukocytosis improved, remains afebrile. Fluctuant area is smaller in size on 10/14. Surgery held off on I&D for now. -continue Dapto and Levaquin x 10 day course but can convert to po meds if ready for discharge otherwise -consult Gen Surgery appreciated -continue pain control as above #Anemia-iron deficiency and B12 deficiency-hemoglobin slowly trending down to 9.6, microcytic. Transferrin saturation low at 8%, ferritin low at 24. No evidence of bleeding from anywhere obvious. B12 low normal at 258, folate normal at 6, TSH normal -start IV Venofer 300mg daily x 3 doses starting 10/16-pt agreeable after discussion of risks/benefits. Po Fe would worsen her constipation from opioids -start B12 1000 mcg po qAM -Follow CBC -Consider outpatient GI workup after discharge for occult GI blood loss #Opioid-induced constipation- ongoing but had BM on 10/14 -continue scheduled sennakot and Miralax once daily #COVID-19/Nausea-She reports having fevers at home, nausea/vomiting, and diarrhea. Diarrhea now improved, appetite remains low and nausea comes and goes but is improved with increasing Abilify dose. She is now off of COVID isolation -continue zofran prn, compazine prn (no doses used), ativan for nausea -Increased Abilify to 5mg po qAM which can help with nausea-improved #Anxiety/Insomnia/Depression-worsened by chronic pain -continue hydroxyzine, duloxetine, IV ativan, holding home xanax prn -continue increased dose of Abilify 5mg po qAM -increased Seroquel to 50mg po hs for depression and for sleep -Palliative medicine increased frequency of IV Ativan to every 6 as needed for anxiety -consult hot tar roofer liasion for discussion and to assist with resources for outpt therapy after discharge-pt would be amenable to telehealth therapy visits #HTN - BPs normal -continue clonidine but switched pills to a patch -continue hydralazine, lisinopril #DMII-is on Lantus and Novolog, A1C well controlled here at 6.6% Continue BSGs, ADA diet VTE Prophylaxis - Lovenox 40mg SQ daily-can be resumed as no surgery pending Disposition - continued stay med/surg, -Nurse Navigator will need to do a prior auth for Fentanyl patch-pending Admission and Anticipated Discharge Date Admission Date: October 01, 2024 Subjective Pt reports being tired, not sleeping well. Left armpit still very painful. Is disappointed bout not getting the abscess drained by Surgery. Moved her bowels last night. Feels her pain is finally better controlled in the evening. Physical Exam Constitutional: WD/WN, vitals as above Respiratory: normal respiratory effort, lungs clear to auscultation Cardiovascular: RRR, no murmur, no edema Gastrointestinal (Abdomen): normal bowel sounds, soft, nontender, no hepatosplenomegaly Skin: left axilla with 4 cm erythematous fluctuant region +TTP, +palpable enlarged axillary GOSIA no streaking of erythema left foot with 2 small erythematous macules 2-3mm in size Psychiatric: Orientation: alert and oriented x 3 Mood: + depressed mood Results & Data Results & Data Vital Signs (Past 12 Hours) Vital Signs Temp Pulse Resp BP Pulse Ox O2 Del Method 10/15/24 16:41 36.8 C 67 16 128/67 93 Room Air 10/15/24 15:53 69 92/57 L Laboratory Results CBC, BMP, TSH, B12, folate reviewed PG Care Time/CCT Total # of Minutes Spent Total Time Spent with Patient: Total time spent is greater than 50% in coordination of care (as documented) at patient's floor/unit and/or counseling patient: Coding Level of Care Code 07909 SUB INP/OBS CARE 3/50MIN Diagnoses Chronic pain G89.29 Chronic pain type: other chronic pain Abscess L02.91 PAD (peripheral artery disease) I73.9 Anemia D64.9 (1) Chronic pain Chronic pain type: other chronic pain Qualified Code(s): G89.29 - Other chronic pain
[2024-10-16] MEDS ORDERED: IRON SUCROSE 300 MG in SODIUM CHLORIDE 0.9% 250 ML IV SCH (09:00)
[2024-10-16] MEDS: CYANOCOBALAMIN (B-12) 500 MCG TABLET PO SCH (09:03)
--- NOTE | 2024-10-16 09:21 | Communication Note ---
Late Entry Note 10.16.2024 at 6am Palliative Medicine Plate Painter Notified by nursing: "380-1 Mariana Witt is saying the oxycodone is "too much" and does not want to take it, she only wants the Dilaudid. I explained the purpose of increasing it was to get her onto a regimen appropriate for home which I know has been discussed many times, she became very upset and tearful. I t doesn't seem like she is giving the increased oxycodone a chance while the Dilaudid is available." During my visit with pt yesterday, opioid mgt was reviewed in detail. We agreed she will begin transition OFF Dilaudid today and she reported "oxycodone isn't enough for this pain." Therefore Oxy IR was increased to 40mg per her request and up titration of TDF to 100mcg was also done. No change was made to Dilaudid. Discussed and reinforced plan of care with medical and nursing teams. We will not increase Dilaudid IV We will not order PO Dilaudid I have reduced OxyIR back to 30mg in accordance with her concern that Oxy IR 40mg was "too much" I have reduced Dilaudid IV to 0.2mg and moved interval to Q4h prn from q3h prn She will remain on TDF 100mcg q3days I have called Dr Vernon and updated him regarding her admission course. he will see her within a week of dc and asked that we provide a 7 day rx of meds, then he will resume. She needs outpatient psychiatry and her psych meds needs revamp/revision or change - doses have been increased without any improvement and she has been without psychiatry expertise for over 2 years. TS 55min Thank you for allowing us to participate in the ongoing care of this patient. Please page with any additional concerns. Ree Driscoll DNP Director, Palliative Medicine
[2024-10-16] MEDS: HYDROmorphone INJ 0.5 MG/0.5 ML SYR IV PRN (10:53)
[2024-10-16] MEDS: SODIUM FERRIC GLUCONATE 125 MG in SODIUM CHLORIDE 0.9% 100 ML IV SCH (10:55)
--- NOTE | 2024-10-16 12:54 | Hospitalist Progress Note ---
Date of Service October 16, 2024 Assessment & Plan (1) Chronic pain: (2) Abscess: (3) PAD (peripheral artery disease): (4) Anemia: Plan This patient is a 59-year-old female with a history of chronic pain, significant PAD s/p right BKA and amputations of her left toes, DM2 with neuropathy, who has been intermittently in our hospital with paroxysms of uncontrolled pain. Patient has seen pain management and multiple other specialties. She has at times had vascular procedures to improve blood flow without great improvement in her pain. Patient has failed an ilio inguinal nerve block in the past. She presents once again with her chronic left and right groin pain requiring paren teral opiate therapy # Acute on chronic pain: Her pain is similar to what has been described in the past. 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 The pain is not consistent with ischemia, she has been seen by vascular medicine Dr Lin in December 2023 and again this admission for similar pain and not suspected to be due to ischemia and she has good dorsalis pedis pulse on palpation. Her left foot is cool but with good capillary refill. CTA 10/01/24 shows some progression of PAD To LLE. Patient has failed different long and short acting opioids to include MS Contin, Morphine, and methadone, Fentanyl patch caused hallucinations Etiology is most likely neuropathic and ischemic pain with parts of this likely being hyperalgesia. Thus far she is tolerating fentanyl patch without any hallucinations. Reports the 40 mg of oxycodone is making her too tired -Palliative Med managing pain control -increased fentanyl patch to 100 mcg on 10/15-nurse navigator working on prior authorization to see if this is affordable for her -increased Lyrica to 150mg tid, continue duloxetine same dose -increased oxycodone to 40mg po q4h prn breakthrough pain on 10/14 but now decreasing back to 30 mg on 10/16 -continue dilaudid IV but decrease dose to 0.2 Mg IV every 4 hours prn breakthrough pain if oxy not effective -Patient agreeable to referral to see a therapist on an intensive basis as an outpatient-psychiatric behavioral health liaison is consulted to assist with this #PAD -with a h/o right BKA, left toe amputations, multiple angioplasties. Seen by Vascular Med here and nothing acute that needs intervention -continue on aspirin and plavix -added pentoxifylline to try to improve circulation in case her pain is from any ischemia. #Left axillary lymphadenitis/abscess/cellulitis-developed acute onset of painful swollen lumps in left axilla on 10/10. Suspected lymphadenitis initially and then formed a fluctuant mass in left axilla consistent with abscess/phlegmon. Has been on Daptomycin since 10/10 and Levaquin since 10/12. Leukocytosis improved, remains afebrile. Fluctuant area is smaller in size on 10/14. Surgery held off on I&D for now. -continue Dapto and Levaquin x 10 day course but can convert to po levofloxacin and doxycycline meds if ready for discharge otherwise -consult Gen Surgery appreciated-no surgery indicated -Continue to monitor for improvement-slowly improving but will reassess for need for incision and drainage each day -continue pain control as above #Anemia-iron deficiency and B12 deficiency-hemoglobin slowly trending down to 9.6, microcytic. Transferrin saturation low at 8%, ferritin low at 24. No evidence of bleeding from anywhere obvious. B12 low normal at 258, folate normal at 6, TSH normal. She is intolerant to Venofer in the past-caused hypertension. She had tolerated Ferrlecit in the past-I gave her dose on 10/16 and it caused her nausea, belching, and "shakiness." -Will cautiously start oral iron supplementation instead now that she is moving her bowels but does have a history of opioid-induced constipation -started B12 1000 mcg po qAM -Follow CBC -Consider outpatient GI workup after discharge for occult GI blood loss #Opioid-induced constipation- ongoing but had BM on 10/14 and about to have a BM on 10/16 -continue scheduled sennakot and Miralax once daily #COVID-19/Nausea-She reports having fevers at home, nausea/vomiting, and diarrhea. Diarrhea now improved, appetite remains low and nausea comes and goes but is improved with increasing Abilify dose. She is now off of COVID isolation -continue zofran prn, compazine prn (no doses used), ativan for nausea -Increased Abilify to 5mg po qAM which can help with nausea-improved #Anxiety/Insomnia/Depression-worsened by chronic pain -continue hydroxyzine, duloxetine, IV ativan, holding home xanax prn -continue increased dose of Abilify 5mg po qAM -increased Seroquel to 50mg po hs for depression and for sleep -Palliative medicine increased frequency of IV Ativan to every 6 as needed for anxiety-plan to revert back to p.o. Xanax on discharge -consult novelty balloon assembler and packer liasion for discussion and to assist with resources for outpt therapy after discharge-pt would be amenable to telehealth therapy visits #HTN - BPs are labile but mostly elevated -continue clonidine but switched pills to a patch -continue hydralazine, lisinopril #DMII-is on Lantus and Novolog, A1C well controlled here at 6.6% Continue BSGs, ADA diet VTE Prophylaxis - Lovenox 40mg SQ daily Disposition - continued stay med/surg while weaning off of IV Dilaudid and monitoring left axillary abscess/cellulitis-Nurse Navigator will need to do a prior auth for Fentanyl patch-pending Admission and Anticipated Discharge Date Admission Date: October 01, 2024 Subjective Patient felt nauseous and shaky after receiving IV Ferrlecit iron this morning which she has tolerated in the past as per my review of the chart. I came to see her, blood pressure was a little soft with systolics in the 90s but it was also like that yesterday at 1 point and hydralazine had been held. She does not have any rash or shortness of breath. She felt the sudden urge to move her bowels while I was in there. We discussed the changes in her pain medication regimen as I discussed with palliative medicine earlier in the day. Will try oral iron pills once daily instead of IV iron from now on now that she is moving her bowels. Physical Exam Constitutional: WD/WN, vitals as above Respiratory: normal respiratory effort, lungs clear to auscultation Cardiovascular: RRR, no murmur, no edema Gastrointestinal (Abdomen): normal bowel sounds, soft, nontender, no hepatosplenomegaly Skin: Left axilla with 4 cm erythematous fluctuant and indurated area slightly improved from previous, palpable axillary lymphadenopathy, positive TTP Psychiatric: Orientation: alert and oriented x 3 Mood: + depressed mood Results & Data Results & Data Vital Signs (Past 12 Hours) Vital Signs Temp Pulse Resp BP BP Pulse Ox O2 Del Method 10/16/24 12:05 36.9 C 104 H 16 91/50 L 92 Room Air 03/06/25 08:01 37.1 C 74 16 157/65 H 93 Room Air Laboratory Results No labs to review PG Care Time/CCT Total # of Minutes Spent Total Time Spent with Patient: Total time spent is greater than 50% in coordination of care (as documented) at patient's floor/unit and/or counseling patient: Coding Level of Care Code 05011 SUB INP/OBS CARE 2/35MIN Diagnoses Chronic pain G89.29 Chronic pain type: other chronic pain Abscess L02.91 PAD (peripheral artery disease) I73.9 Anemia D64.9 (1) Chronic pain Chronic pain type: other chronic pain Qualified Code(s): G89.29 - Other chronic pain
[2024-10-16] MEDS: LIDOCAINE 2% JELLY 5 ML TUBE EXT SCH (15:38)
[2024-10-16] MEDS ORDERED: hydrALAZINE HCL 25 MG TAB PO PRN (15:40)
[2024-10-16] MEDS: SODIUM CHLORIDE 0.9% 1,000 ML IV ONE (15:58)
[2024-10-16] MEDS: oxyCODONE HCL IR 30 MG TAB (IMMEDIATE RELEASE) PO PRN (17:16)
[2024-10-16] MEDS: LIDOCAINE 4% CREAM 15 GM TUBE EXT SCH (21:23)
[2024-10-16] MEDS: cloNIDine HCL 0.1 MG TAB PO SCH (21:26)
[2024-10-17] MEDS: CHECK fentaNYL PATCH PLACEMENT SCH (01:05)
[2024-10-17] MEDS: LACTATED RINGER'S 1,000 ML IV SCH (06:10)
[2024-10-17 07:10] LABS: Albumin Globulin Ratio 1.5 (0.9-2); Albumin Level 3.4 gm/dl (3.4-5.0); BUN Creatinine Ratio 26.2 (10-20); Bilirubin,Total 0.5 mg/dl (0.2-1.0); Calcium 8.6 mg/dl (8.6-10.3); Creatinine Clr Calc Pharmacy 22.5 ml/min; Globulin 2.3 gm/dl (2.5-4.0); Magnesium 1.8 mg/dl (1.7-2.4); Potassium 5.7 mmol/L (3.5-5.1); Total Protein 5.7 gm/dl (6.0-8.3)
[2024-10-17] MEDS: fentaNYL 75 MCG/HR TDSY TD SCH (08:34)
[2024-10-17] MEDS: FERROUS SULFATE 325 MG TAB PO SCH (08:38)
[2024-10-17] MEDS: LACTATED RINGER'S 1,000 ML IV ONE ×2 (09:37→20:30)
--- NOTE | 2024-10-17 10:59 | Hospitalist Progress Note ---
Date of Service October 17, 2024 Assessment & Plan (1) Chronic pain: Plan: There is concern for opiate hyperalgesia syndrome in this patient. The pain is not consistent with ischemia, she has been seen by vascular medicine Dr Lin in December 2023 and again this admission for similar pain and not suspected to be due to ischemia and she has good dorsalis pedis pulse on palpation. Her left foot is cool but with good capillary refill. CTA 10/01/24 shows some progression of PAD To LLE. Patient has failed different long and short acting opioids to include MS Contin, Morphine, and methadone, Fentanyl patch caused hallucinations Etiology is most likely neuropathic and ischemic pain with parts of this likely being hyperalgesia. Thus far she is tolerating fentanyl patch without any hallucinations. Reports the 40 mg of oxycodone is making her too tired -Palliative Med managing pain control -increased fentanyl patch to 100 mcg on 10/15-nurse navigator working on prior authorization to see if this is affordable for her -increased Lyrica to 150mg tid, continue duloxetine same dose -increased oxycodone to 40mg po q4h prn breakthrough pain on 10/14 but now decreasing back to 30 mg on 10/16 -continue dilaudid IV but decrease dose to 0.2 Mg IV every 4 hours prn breakthrough pain if oxy not effective -Patient agreeable to referral to see a therapist on an intensive basis as an outpatient-psychiatric behavioral health liaison is consulted to assist with this -fentanyl currently on hold (2) Abscess: Plan: developed acute onset of painful swollen lumps in left axilla on 10/10. Suspected lymphadenitis initially and then formed a fluctuant mass in left axilla consistent with abscess/phlegmon. Has been on Daptomycin since 10/10 and Levaquin since 10/12. Leukocytosis improved, remains afebrile. Fluctuant area is smaller in size on 10/14. Surgery held off on I&D for now. -continue Dapto and Levaquin x 10 day course but can convert to po levofloxacin and doxycycline meds if ready for discharge otherwise -consult Gen Surgery appreciated-no surgery indicated -Continue to monitor for improvement-slowly improving but will reassess for need for incision and drainage each day -continue pain control as above (3) PAD (peripheral artery disease): Plan: with a h/o right BKA, left toe amputations, multiple angioplasties. Seen by Vascular Med here and nothing acute that needs intervention -continue on aspirin and plavix -added pentoxifylline to try to improve circulation in case her pain is from any ischemia. (4) Anemia: Plan: hemoglobin slowly trending down to 9.6, microcytic. Transferrin saturation low at 8%, ferritin low at 24. No evidence of bleeding from anywhere obvious. B12 low normal at 258, folate normal at 6, TSH normal. She is intolerant to Venofer in the past-caused hypertension. She had tolerated Ferrlecit in the past-I gave her dose on 10/16 and it caused her nausea, belching, and "shakiness." -Will cautiously start oral iron supplementation instead now that she is moving her bowels but does have a history of opioid-induced constipation -started B12 1000 mcg po qAM -Follow CBC -Consider outpatient GI workup after discharge for occult GI blood loss Plan This patient is a 59-year-old female with a history of chronic pain, significant PAD s/p right BKA and amputations of her left toes, DM2 with neuropathy, who has been intermittently in our hospital with paroxysms of uncontrolled pain. Patient has seen pain management and multiple other specialties. She has at times had vascular procedures to improve blood flow without great improvement in her pain. Patient has failed an ilio inguinal nerve block in the past. She presents once again with her chronic left and right groin pain requiring parenteral opiate therapy - Disposition - continued stay med/surg while weaning off of IV Dilaudid and monitoring left axillary abscess/cellulitis-Nurse Navigator will need to do a prior auth for Fentanyl patch-pending Admission and Anticipated Discharge Date Admission Date: October 01, 2024 Subjective Pt hypotensive this am, requiring fluid bolus. Complaing of pain this am. Review of Systems Review of Systems: CONST: Negative for fever, body aches and chills. HENT: Negative for neck pain/stiffness, headache, congestion, sore throat, swelling. EYES: Negative for discharge/pain or vision changes. RESP: Negative for cough/hemoptysis and shortness of breath. CV: Negative chest pain, difficulty breathing, palpitations. ABD: Negative pain, nausea, vomiting. : Negative increase frequency, dysuria, blood in urine or stool. MUSC: Negative for muscle aches, edema. SKIN: Negative rash, lesions/sores. NEURO: Negative headache, dizziness, weakness. Physical Exam Physical Exam: GENERAL APPEARANCE NAD, activity normal for age, well developed/ well nourished, no cyanosis, pallor, or diaphoresis. EYES lids/conjunctiva normal. EARS/NOSE/THROAT Mucous membranes moist, nares normal, lips/teeth normal uvula midline without oral pharyngeal erythema, exudate or swelling TMs normal bilaterally. No lymphangitis/lymphedema. HEAD/NECK normocephalic atraumatic, no facial trauma, neck is supple. RESPIRATORY respiratory effort normal, speaks in full sentences, no tripod position, no accessory muscle use. Lungs clear to auscultation without rhonchi, wheezes, rales CARDIAC Regular rate and rhythm, no edema. ABDOMINAL Soft, ND/NT. No evidence of fluid wave. No pulsatile masses on exam, rebound tenderness, Tran sign or pain over Mcburney's point. MUSCLES/EXTREMITIES No abnormal range of motion, no swelling. SKIN Warm, pink and dry. No rashes, dermatoses, petechiae or lesions. NEUROLOGICAL Speech is clear and appropriate. Normal level of consciousness. Gait and coordination are normal. 5/5 strength in all extremities. PSYCH Normal mood and affect. Judgement/competence is appropriate Results & Data Results & Data Vital Signs (Past 12 Hours) Vital Signs Temp Pulse Resp BP BP Pulse Ox O2 Del Method 10/17/24 09:04 36.6 C 97 H 14 80/42 L 97 Room Air 10/17/24 07:19 36.6 C 101 H 12 84/49 L 93 Room Air 10/17/24 06:39 36.8 C 88/49 L 10/17/24 06:30 64/49 L 10/17/24 06:17 61/40 L 10/17/24 05:59 66/42 L 10/17/24 05:40 92/58 L 10/17/24 05:30 127/92 PG Care Time/CCT Total # of Minutes Spent Total Time Spent with Patient: Total time spent is greater than 50% in coordination of care (as documented) at patient's floor/unit and/or counseling patient: Coding Level of Care Code 36216 SUB INP/OBS CARE 2/35MIN Diagnoses Chronic pain G89.29 Chronic pain type: other chronic pain Abscess L02.91 PAD (peripheral artery disease) I73.9 Anemia D64.9 (1) Chronic pain Chronic pain type: other chronic pain Qualified Code(s): G89.29 - Other chronic pain
--- NOTE | 2024-10-17 14:49 | Gastrointestinal Consultation ---
Date of Consultation October 17, 2024 Assessment & Plan (1) Heme positive stool: 59 year old female with history of T2DM, PAD, chronic pain, anxiety, depression, gastroparesis and others below admitted through the ED 10/01/24 w/ chronic pain - GI was asked to evaluate 10/17/24 for heme positive stools. On examination this afternoon she is quite sedation but when she wakes she tells me she is agreeable to endoscopic evaluation. GI will re-assess and attempt to re-discuss when she is less sedated. If she is agreeable we would need to hold ASA/Plavix in anticipation for endoscopic evaluation. She is documented as having brown stools. Agree w/ trending H&H. Monitor/document GI output. Transfuse PRN per primary service. Iron supplementation. PO PPI twice daily. EGD/Colonoscopy timing to be determined on her clinical course. I spent a total of 45 minutes on the date of service in review of patient's re cord, and previously obtained information in person and appropriate medical visit, discussion and education of plan, with patient and/or caregiver, placing orders for tests/referral/procedures as medically necessary and documentation of pertinent clinical information in patient's medical records for their visit today. Supervising Physician Co-Signing Physician Notes I saw and examined this patient with our nurse practitioner and agree with her assessment and plan. Microcytic anemia with occult blood in stool. Discussed possible endoscopy and colonoscopy with patient to exclude significant GI pathology as cause for anemia. If she agrees we will plan to do this early next week. Can also be done as an outpatient if continues to be hemodynamically stable. History of Present Illness Reason for Consultation: occult + stool Requesting Physician: Milan Senior MD Attending Physician: Milan Senior MD History of Present Illness 59 year old female with history of T2DM, PAD, chronic pain, anxiety, depression, gastroparesis and others below admitted through the ED 10/01/24 w/ chronic pain. GI was asked to evaluate 10/17/24 for heme positive stools. Pt was seen and evaluated. She was sleeping on entering her room. Awakes to name but is not able to stay awake for a conversation. When she is awake she states she is just tired and in pain. I asked if she would be agreeable to endoscopic evaluation for her ANGELA. She says yet. She is not able to tell me if she has had any nausea/vomiting, black or bloody stools. She is on ASA and Plavix. Last dose of both were this AM. HGB 12 --> 11.3 --> 9.6 --> 9.6 MCV 77 Iron 33 Occult stool positive EGD 2023: Gastritis, characterized by erythema. Biopsied. - LA Grade D esophagitis. Biopsied. - Normal examined duodenum. Colonoscopy: years ago w/ [facility] Allergies Allergy/AdvReac Type Severity Reaction Status Date / Time morphine Allergy Severe blisters Verified 02/10/24 22:40 in mouth Sulfa (Sulfonamide Allergy Severe rash/swelli Verified 02/10/24 22:40 Antibiotics) ng amoxicillin [From Augmentin] Allergy Intermediate itching/power Verified 02/10/24 22:40 h ceftriaxone [From Rocephin] Allergy Intermediate Hives Verified 02/10/24 22:40 clavulanic acid Allergy Intermediate itching/power Verified 02/10/24 22:40 [From Augmentin] h erythromycin base Allergy Intermediate Hives Verified 02/10/24 22:40 vancomycin Allergy Intermediate YULIYA Verified 02/10/24 22:40 SYNDROME---CAN TAKE IF VERY SLOW DRIP. adhesive AdvReac Intermediate DERMABOND Verified 02/10/24 22:40 excoriates skin gabapentin AdvReac Intermediate Nausea Verified 02/10/24 22:40 iron [From Venofer] AdvReac Intermediate Hypertensio Verified 02/10/24 22:40 n Home Medications Medication Instructions Recorded Confirmed Type insulin glargine 100 unit/mL (3 10 unit subcut HS 10/17/22 09/28/24 History mL) subcutaneous pen (Lantus Solostar U-100 Insulin) alprazolam 1 mg tablet 1 mg PO TID PRN Anxiety 05/08/23 10/01/24 History docusate sodium 100 mg capsule 100 mg PO BID 05/08/23 09/28/24 History metoprolol succinate 50 mg 50 mg PO QAM 05/08/23 09/28/24 History tablet,extended release 24 hr (Toprol XL) clopidogrel 75 mg tablet (Plavix) 75 mg PO DAILY #30 tabs 05/10/23 09/28/24 Rx prochlorperazine maleate 5 mg 5 mg PO TID PRN Nausea 06/13/23 09/28/24 History tablet aspirin 81 mg tablet,delayed 81 mg PO DAILY 09/19/23 09/28/24 History release hydralazine 25 mg tablet 25 mg PO TID 09/19/23 09/28/24 History clonidine HCl 0.1 mg tablet 0.1 mg PO Q8H #90 tabs 04/03/24 09/28/24 Rx naloxone 4 mg/actuation nasal spray 4 mg intranasal ONCE PRN opioid 04/03/24 09/28/24 Rx overdose #2 ea polyethylene glycol 3350 17 gram 17 g PO BID #0 ea 04/03/24 09/28/24 Rx oral powder packet (Miralax) pregabalin 100 mg capsule (Lyrica) 100 mg PO TID #90 caps 04/03/24 09/28/24 Rx sennosides 8.6 mg tablet (Senokot) 17.2 mg (2 x 8.6 mg) PO BID PRN 04/03/24 09/28/24 Rx constipation #60 tabs duloxetine 60 mg capsule,delayed 60 mg PO DAILY 06/02/24 09/28/24 History release insulin aspart 5 unit subcut TIDM 06/02/24 09/28/24 History (niacinamide)(U-100) 100 unit/mL(3 mL) subcutaneous pen (Fiasp FlexTouch U-100 Insulin) lisinopril 20 mg tablet 20 mg PO DAILY 06/02/24 09/28/24 History ropinirole 4 mg tablet 8 mg PO HS 06/02/24 09/28/24 History sucralfate 100 mg/mL oral 1 g (10 mL) PO ACHS #200 mL 06/05/24 09/28/24 Rx suspension (Carafate) aripiprazole 5 mg tablet (Abilify) 2.5 mg (1/2 x 5 mg) PO QAM #30 tabs 07/09/24 09/28/24 Rx hydroxyzine HCl 25 mg tablet 50 mg (2 x 25 mg) PO HS #30 tabs 07/09/24 09/28/24 Rx quetiapine 25 mg tablet 25 mg PO HS 10/06/24 10/06/24 History Patient History Medical History Dysphagia Lumbar radiculopathy, right Type 2 diabetes mellitus Uncontrolled hypertension GERD (gastroesophageal reflux disease) Amputation of left great toe Poor venous access Hyponatremia Intractable neuropathic pain of left lower extremity Gastroparesis Leukocytosis Insomnia HTN (hypertension) Hypertension Groin pain Foot pain Infection of left great toe due to methicillin resistant Staphylococcus aureus (MRSA) Diastolic CHF COVID-19 Osteomyelitis of great toe of left foot Opiate dependence Opiate abuse, continuous Acidosis, lactic Acute dehydration Gastroenteritis Sepsis Shortness of breath Opioid dependence Insomnia 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 No issues per anesthesia postop progress note. Anemia Hyponatremia Cellulitis Peripheral neuropathy Benzodiazepine withdrawal Right second toe ulcer Diabetes mellitus type 2, uncontrolled Hyperlipidemia Seizures Gastritis Numbness of lower extremity Hypertriglyceridemia CAD (coronary artery disease) History of tobacco use Benzodiazepine dependence Diabetic neuropathy Abdominal pain Gastroparesis Esophagitis determined by endoscopy GIB (gastrointestinal bleeding) Insulin dependent diabetes mellitus DM2 (diabetes mellitus, type 2) IDDM, A1c 07/2021-11% Surgical History History of lumbar fusion L5-S1 from 2004, [place] History of lumbar surgery History of esophagogastroduodenoscopy (EGD) Family History Mother , age 63 Myocardial infarction Father , age 68 or 69 Myocardial infarction Brother S/P CABG (coronary artery bypass graft) Sister Myocardial infarction x 3; she is 57yo Social History Smoking Status: Former smoker Tobacco Type: Cigarettes packs per day: 0.5; Second Hand Exposure: No; Do You Dip or Chew Tobacco: No; Hx Alcohol Use: No Hx Substance Use: Yes Prescribed Medications: Marijuana Last Used Substance: Unknown Last Used Substance Other:: Medical marijuana Substance Use Type Other:: Medical marijuana Preferred Language: Khmer Communication Ability: Effective Visual Impairment: No Limitations Hearing Ability: Normal Windows Security Analyst Required: No Beliefs That Will Affect Care: None marital status: Current Living Situation: Spouse Current Living Situation Comment: lives at home with current occupational status: unemployed 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 Other Information That Helps Us Care for You: No other: raising a grandchild as well; lives in [place] Feels Safe at Home: Yes Safety Concerns: Feels Safe At This Time Diet: diabetic and low salt during the past year weight has: remained stable Assistive Devices: Bedside Commode, Glasses, Walker and Wheelchair Review of Systems Review of Systems: All other findings negative except as noted in HPI. Physical Exam Constitutional: WD/WN, vitals as above Respiratory: normal respiratory effort Gastrointestinal (Abdomen): Percussion/Palpation: abdomen soft; abdomen nontender Skin: no rashes, warm and dry Results & Data Vital Signs (Past 12 Hours) Vital Signs Temp Pulse Resp BP BP Pulse Ox O2 Del Method 10/17/24 13:02 97.7 F 93 H 14 93/55 L 96 Room Air 10/17/24 12:13 98.1 F 91 H 12 87/52 L 92 Room Air 10/17/24 11:00 97.7 F 89 14 88/50 L 92 Room Air 10/17/24 09:04 97.9 F 97 H 14 80/42 L 97 Room Air 10/17/24 07:25 Room Air 10/17/24 07:19 97.9 F 101 H 12 84/49 L 93 Room Air 10/17/24 06:39 98.2 F 88/49 L 10/17/24 06:30 64/49 L 10/17/24 06:17 61/40 L 10/17/24 05:59 66/42 L 10/17/24 05:40 92/58 L 10/17/24 05:30 127/92 Laboratory Results 10/17/24 10/17/24 10/17/24 Range/Units 14:34 14:01 11:33 WBC Pending RBC Pending Hgb Pending Hct Pending MCV Pending MCH Pending MCHC Pending Plt Count Pending Sodium (136-145) mmol/L Potassium (3.5-5.1) mmol/L Chloride (98-107) mmol/L Carbon Dioxide (21-32) mmol/L Anion Gap (3-11) BUN (6-23) mg/dl Creatinine (0.6-1.2) mg/dl Est Cr Clr Drug Dosing ml/min eGFR BUN/Creatinine Ratio (10-20) Glucose (70-99(Fasting)) mg/dl POC Glucose 91 (70-99) mg/dl Calcium (8.6-10.3) mg/dl Magnesium (1.7-2.4) mg/dl Total Bilirubin (0.2-1.0) mg/dl AST (13-39) U/L ALT (7-52) U/L Alkaline Phosphatase (34-104) U/L Total Protein (6.0-8.3) gm/dl Albumin (3.4-5.0) gm/dl Globulin (2.5-4.0) gm/dl Albumin/Globulin Ratio (0.9-2) Stool Occult Bld Scrn Positive A (Negative) Stl C. diff Tox B Gene (Neg) 10/17/24 10/17/24 10/17/24 Range/Units 08:45 08:02 06:29 WBC RBC Hgb Hct MCV MCH MCHC Plt Count Sodium 135 L (136-145) mmol/L Potassium 5.7 H D (3.5-5.1) mmol/L Chloride 104 (98-107) mmol/L Carbon Dioxide 20 L (21-32) mmol/L Anion Gap 11 (3-11) BUN 55 H D (6-23) mg/dl Creatinine 2.10 H D (0.6-1.2) mg/dl Est Cr Clr Drug Dosing 22.5 ml/min eGFR 26.48 BUN/Creatinine Ratio 26.2 H (10-20) Glucose 108 H (70-99(Fasting)) mg/dl POC Glucose 122 H (70-99) mg/dl Calcium 8.6 (8.6-10.3) mg/dl Magnesium 1.8 (1.7-2.4) mg/dl Total Bilirubin 0.5 (0.2-1.0) mg/dl AST 42 H (13-39) U/L ALT 21 (7-52) U/L Alkaline Phosphatase 311 H (34-104) U/L Total Protein 5.7 L (6.0-8.3) gm/dl Albumin 3.4 (3.4-5.0) gm/dl Globulin 2.3 L (2.5-4.0) gm/dl Albumin/Globulin Ratio 1.5 (0.9-2) Stool Occult Bld Scrn (Negative) Stl C. diff Tox B Gene Negative Cdiff Gene (Neg) 10/16/24 10/16/24 Range/Units 21:00 16:22 WBC RBC Hgb Hct MCV MCH MCHC Plt Count Sodium (136-145) mmol/L Potassium (3.5-5.1) mmol/L Chloride (98-107) mmol/L Carbon Dioxide (21-32) mmol/L Anion Gap (3-11) BUN (6-23) mg/dl Creatinine (0.6-1.2) mg/dl Est Cr Clr Drug Dosing ml/min eGFR BUN/Creatinine Ratio (10-20) Glucose (70-99(Fasting)) mg/dl POC Glucose 124 H 143 H (70-99) mg/dl Calcium (8.6-10.3) mg/dl Magnesium (1.7-2.4) mg/dl Total Bilirubin (0.2-1.0) mg/dl AST (13-39) U/L ALT (7-52) U/L Alkaline Phosphatase (34-104) U/L Total Protein (6.0-8.3) gm/dl Albumin (3.4-5.0) gm/dl Globulin (2.5-4.0) gm/dl Albumin/Globulin Ratio (0.9-2) Stool Occult Bld Scrn (Negative) Stl C. diff Tox B Gene (Neg) PG Care Time/CCT Total # of Minutes Spent Total Time Spent with Patient: Total time spent is greater than 50% in coordination of care (as documented) at patient's floor/unit and/or counseling patient: Coding Level of Care Code 88574 IN/OBS CONSULT LVL 3,45M Diagnoses Heme positive stool R19.5
[2024-10-17 15:21] LABS: Hematocrit (blood only) 30.2 % (37.0-47.0); Hemoglobin 9.4 g/dl (12.0-16.0); Mean Corpuscular Hemoglobin 23.9 pg (25.0-34.0); Mean Corpuscular Hgb Conc 31.1 g/dL (32.0-36.0); Mean Corpuscular Volume 76.8 fL (80.0-100.0); Mean Platelet Volume 10.7 fL (9.4-12.4); Platelet Count 211 K/uL (130-400); RDW Coefficient of Variation 18.7 % (11.5-14.5); Red Blood Count 3.93 M/uL (4.20-5.40)
[2024-10-17] MEDS: PANTOprazole 40 MG/10 ML SYR IV SCH (20:14)
--- NOTE | 2024-10-17 21:27 | Palliative Care Progress Note ---
Date of Service October 17, 2024 Assessment & Plan (1) Chronic pain: Plan: pt came to ED for intractable severe pain in LLE, groin, and L flank: Home regimen Oxy IR 20mg approx 8-10 daily, no relief Prior methadone was stopped by pt at low dose because "it didn't help at all" She has a long hx of stopping meds when she feels they do not help and then she will also delay her own care, to her own detriment She has a prior substance abuse history in distant past and is opioid tolerant +manipulative behaviors, splitting teams At home pt was using oral oxycodone 160 - 200mg daily without relief 200mg oxy = 400mg oral MS equivalents (OMEs) 400mg PO MS = 133mg IV MS = dilaudid 27mg IV daily equivalent Started TDF last week for opiate rotation It is noted she has used far less Dilaudid with RN GASTROENTEROLOGY vs PRN dosing and pain has been better managed with RN GASTROENTEROLOGY Today's adjustments: TDF stopped Clonidine stopped Oxy IR remains reduced at 30mg PO q4h prn Dilaudid remains reduced at 0.2mg IV q4h prn +opioid hyperalgesia syndrome She would probably benefit from UROD but there are no centers in this region who can offer this treatment (2) Palliative care by specialist: Plan: Palliative care continues to follow for pain/symptom mgmt and ACP. (3) Nausea & vomiting: Plan: Resolved Plan Hypotension, under monitoring new heme+ stool likely for scope pain regimen modified due to hypotension, somnolence As noted previously: Liliana has longstanding complex chronic pain and psych issues for which she has been without psychiatry care for over 2 years. Recommend formal psychiatry consult for medication revamp and new regimen as current meds are no longer helping despite several dose escalation incl Seroquel. Liliana has a hx manipulative behavior/splitting teams. She benefits with clear/consistent communication across disciplines. It is important for all teams to maintain a unified approach, delivering tanner information in a consistent and direct manner. Attempts to assign blame or introduce misconceptions should be met with a neutral and factual response. A collaborative, non-confrontational approach will help foster a therapeutic relationship, and it is essential to avoid blaming the patient for her challenges which triggers her defensive behaviors; this approach will improve communication and support more effective engagement with her care. Thank you for allowing us to participate in the ongoing care of this patient. Please page with any additional concerns. Ree Driscoll DNP Director, Palliative Medicine Admission and Anticipated Discharge Date Admission Date: October 01, 2024 Subjective somnolent hypotensive new heme + stool, GI eval recc scope does not complain of pain TDF has been stopped clonidine has been held remains on Abtx for her abscess Review of Systems Review of Systems: Unobtainable due to cognitive status Physical Exam Physical Exam: sleepy, did not focus, fell back asleep quickly Constitutional: + acute distress and + ill appearing Eyes: PERRL, conjunctivae normal, anicteric sclerae ENMT: Mouth: + dental caries and + poor dentition Neck: normal visual inspection and trachea midline Thyroid: normal thyroid Respiratory: normal respiratory effort, lungs clear to auscultation normal respiratory effort Cardiovascular: Rate/Rhythm: regular rate and regular rhythm Gastrointestinal (Abdomen): normal bowel sounds, soft, nontender, no hepatosplenomegaly Musculoskeletal: Right BKA LLE cool to touch, multiple toe amputations, Skin: left axillary region with hard/indurated area of fluctuance with +erythema, +tender to palpation, on upper/inner left arm there is an area of erythema and tenderness. there is induration and area of fluctuance appreciated. there is redness noted in the upper medial side of her arm Neurologic: PERRL, EOMI, accommodation nl, no face palsy, no dysarthria Psychiatric: somnolent, did not interact much with me Results & Data Vital Signs (Past 12 Hours) Vital Signs Temp Pulse Resp BP BP Pulse Ox O2 Del Method 10/17/24 20:18 85/50 L 10/17/24 19:30 38.8 C H 106 H 18 83/37 L 92 Room Air 10/17/24 15:29 36.5 C 91 H 14 82/42 L 92 Room Air 10/17/24 13:02 36.5 C 93 H 14 93/55 L 96 Room Air 10/17/24 12:13 36.7 C 91 H 12 87/52 L 92 Room Air 10/17/24 11:00 36.5 C 89 14 88/50 L 92 Room Air Laboratory Results 10/17/24 10/17/24 10/17/24 Range/Units 20:58 16:49 14:34 WBC 14.60 H (4.8-10.8) K/ul RBC 3.93 L (4.20-5.40) M/uL Hgb 9.4 L (12.0-16.0) g/dl Hct 30.2 L (37.0-47.0) % MCV 76.8 L (80.0-100.0) fL MCH 23.9 L (25.0-34.0) pg MCHC 31.1 L (32.0-36.0) g/dL RDW Std Deviation 52.0 H (36.4-46.3) fL RDW Coeff of Maria Del Carmen 18.7 H (11.5-14.5) % Plt Count 211 (130-400) K/uL MPV 10.7 (9.4-12.4) fL Immature Gran % (Auto) % Neut % (Auto) % Lymph % (Auto) % Ware % (Auto) % Eos % (Auto) % Baso % (Auto) % Neut # (Auto) (1.40-6.50) K/uL Lymph # (Auto) (1.20-3.40) K/uL Ware # (Auto) (0.11-0.59) K/uL Eos # (Auto) (0.00-0.50) K/uL Baso # (Auto) (0.00-0.20) K/uL Immature Gran # (Auto) (0.01-0.20) K/uL Sodium (136-145) mmol/L Potassium (3.5-5.1) mmol/L Chloride (98-107) mmol/L Carbon Dioxide (21-32) mmol/L Anion Gap (3-11) BUN (6-23) mg/dl Creatinine (0.6-1.2) mg/dl Est Cr Clr Drug Dosing ml/min eGFR BUN/Creatinine Ratio (10-20) Glucose (70-99(Fasting)) mg/dl POC Glucose 72 110 H (70-99) mg/dl Calcium (8.6-10.3) mg/dl Magnesium (1.7-2.4) mg/dl Iron (35-150) mcg/dl TIBC (250-450) mcg/dl Transferrin (200-360) mg/dl Transferrin % Sat (15-50) % Ferritin (8-388) ng/ml Total Bilirubin (0.2-1.0) mg/dl AST (13-39) U/L ALT (7-52) U/L Alkaline Phosphatase (34-104) U/L Total Protein (6.0-8.3) gm/dl Albumin (3.4-5.0) gm/dl Globulin (2.5-4.0) gm/dl Albumin/Globulin Ratio (0.9-2) Vitamin B12 (180-914) pg/ml Folate (>5.38) ng/ml TSH (0.300-4.500) uIu/ml Stool Occult Bld Scrn (Negative) Stl C. diff Tox B Gene (Neg) 10/17/24 10/17/24 10/17/24 Range/Units 14:01 11:33 08:45 WBC (4.8-10.8) K/ul RBC (4.20-5.40) M/uL Hgb (12.0-16.0) g/dl Hct (37.0-47.0) % MCV (80.0-100.0) fL MCH (25.0-34.0) pg MCHC (32.0-36.0) g/dL RDW Std Deviation (36.4-46.3) fL RDW Coeff of Maria Del Carmen (11.5-14.5) % Plt Count (130-400) K/uL MPV (9.4-12.4) fL Immature Gran % (Auto) % Neut % (Auto) % Lymph % (Auto) % Ware % (Auto) % Eos % (Auto) % Baso % (Auto) % Neut # (Auto) (1.40-6.50) K/uL Lymph # (Auto) (1.20-3.40) K/uL Ware # (Auto) (0.11-0.59) K/uL Eos # (Auto) (0.00-0.50) K/uL Baso # (Auto) (0.00-0.20) K/uL Immature Gran # (Auto) (0.01-0.20) K/uL Sodium (136-145) mmol/L Potassium (3.5-5.1) mmol/L Chloride (98-107) mmol/L Carbon Dioxide (21-32) mmol/L Anion Gap (3-11) BUN (6-23) mg/dl Creatinine (0.6-1.2) mg/dl Est Cr Clr Drug Dosing ml/min eGFR BUN/Creatinine Ratio (10-20) Glucose (70-99(Fasting)) mg/dl POC Glucose 91 (70-99) mg/dl Calcium (8.6-10.3) mg/dl Magnesium (1.7-2.4) mg/dl Iron (35-150) mcg/dl TIBC (250-450) mcg/dl Transferrin (200-360) mg/dl Transferrin % Sat (15-50) % Ferritin (8-388) ng/ml Total Bilirubin (0.2-1.0) mg/dl AST (13-39) U/L ALT (7-52) U/L Alkaline Phosphatase (34-104) U/L Total Protein (6.0-8.3) gm/dl Albumin (3.4-5.0) gm/dl Globulin (2.5-4.0) gm/dl Albumin/Globulin Ratio (0.9-2) Vitamin B12 (180-914) pg/ml Folate (>5.38) ng/ml TSH (0.300-4.500) uIu/ml Stool Occult Bld Scrn Positive A (Negative) Stl C. diff Tox B Gene Negative Cdiff Gene (Neg) 10/17/24 10/17/24 10/16/24 Range/Units 08:02 06:29 21:00 WBC (4.8-10.8) K/ul RBC (4.20-5.40) M/uL Hgb (12.0-16.0) g/dl Hct (37.0-47.0) % MCV (80.0-100.0) fL MCH (25.0-34.0) pg MCHC (32.0-36.0) g/dL RDW Std Deviation (36.4-46.3) fL RDW Coeff of Maria Del Carmen (11.5-14.5) % Plt Count (130-400) K/uL MPV (9.4-12.4) fL Immature Gran % (Auto) % Neut % (Auto) % Lymph % (Auto) % Ware % (Auto) % Eos % (Auto) % Baso % (Auto) % Neut # (Auto) (1.40-6.50) K/uL Lymph # (Auto) (1.20-3.40) K/uL Ware # (Auto) (0.11-0.59) K/uL Eos # (Auto) (0.00-0.50) K/uL Baso # (Auto) (0.00-0.20) K/uL Immature Gran # (Auto) (0.01-0.20) K/uL Sodium 135 L (136-145) mmol/L Potassium 5.7 H D (3.5-5.1) mmol/L Chloride 104 (98-107) mmol/L Carbon Dioxide 20 L (21-32) mmol/L Anion Gap 11 (3-11) BUN 55 H D (6-23) mg/dl Creatinine 2.10 H D (0.6-1.2) mg/dl Est Cr Clr Drug Dosing 22.5 ml/min eGFR 26.48 BUN/Creatinine Ratio 26.2 H (10-20) Glucose 108 H (70-99(Fasting)) mg/dl POC Glucose 122 H 124 H (70-99) mg/dl Calcium 8.6 (8.6-10.3) mg/dl Magnesium 1.8 (1.7-2.4) mg/dl Iron (35-150) mcg/dl TIBC (250-450) mcg/dl Transferrin (200-360) mg/dl Transferrin % Sat (15-50) % Ferritin (8-388) ng/ml Total Bilirubin 0.5 (0.2-1.0) mg/dl AST 42 H (13-39) U/L ALT 21 (7-52) U/L Alkaline Phosphatase 311 H (34-104) U/L Total Protein 5.7 L (6.0-8.3) gm/dl Albumin 3.4 (3.4-5.0) gm/dl Globulin 2.3 L (2.5-4.0) gm/dl Albumin/Globulin Ratio 1.5 (0.9-2) Vitamin B12 (180-914) pg/ml Folate (>5.38) ng/ml TSH (0.300-4.500) uIu/ml Stool Occult Bld Scrn (Negative) Stl C. diff Tox B Gene (Neg) 10/16/24 10/16/24 10/16/24 Range/Units 16:22 11:35 07:46 WBC (4.8-10.8) K/ul RBC (4.20-5.40) M/uL Hgb (12.0-16.0) g/dl Hct (37.0-47.0) % MCV (80.0-100.0) fL MCH (25.0-34.0) pg MCHC (32.0-36.0) g/dL RDW Std Deviation (36.4-46.3) fL RDW Coeff of Maria Del Carmen (11.5-14.5) % Plt Count (130-400) K/uL MPV (9.4-12.4) fL Immature Gran % (Auto) % Neut % (Auto) % Lymph % (Auto) % Ware % (Auto) % Eos % (Auto) % Baso % (Auto) % Neut # (Auto) (1.40-6.50) K/uL Lymph # (Auto) (1.20-3.40) K/uL Ware # (Auto) (0.11-0.59) K/uL Eos # (Auto) (0.00-0.50) K/uL Baso # (Auto) (0.00-0.20) K/uL Immature Gran # (Auto) (0.01-0.20) K/uL Sodium (136-145) mmol/L Potassium (3.5-5.1) mmol/L Chloride (98-107) mmol/L Carbon Dioxide (21-32) mmol/L Anion Gap (3-11) BUN (6-23) mg/dl Creatinine (0.6-1.2) mg/dl Est Cr Clr Drug Dosing ml/min eGFR BUN/Creatinine Ratio (10-20) Glucose (70-99(Fasting)) mg/dl POC Glucose 143 H 75 98 (70-99) mg/dl Calcium (8.6-10.3) mg/dl Magnesium (1.7-2.4) mg/dl Iron (35-150) mcg/dl TIBC (250-450) mcg/dl Transferrin (200-360) mg/dl Transferrin % Sat (15-50) % Ferritin (8-388) ng/ml Total Bilirubin (0.2-1.0) mg/dl AST (13-39) U/L ALT (7-52) U/L Alkaline Phosphatase (34-104) U/L Total Protein (6.0-8.3) gm/dl Albumin (3.4-5.0) gm/dl Globulin (2.5-4.0) gm/dl Albumin/Globulin Ratio (0.9-2) Vitamin B12 (180-914) pg/ml Folate (>5.38) ng/ml TSH (0.300-4.500) uIu/ml Stool Occult Bld Scrn (Negative) Stl C. diff Tox B Gene (Neg) 10/15/24 10/15/24 10/15/24 Range/Units 21:17 16:43 11:36 WBC (4.8-10.8) K/ul RBC (4.20-5.40) M/uL Hgb (12.0-16.0) g/dl Hct (37.0-47.0) % MCV (80.0-100.0) fL MCH (25.0-34.0) pg MCHC (32.0-36.0) g/dL RDW Std Deviation (36.4-46.3) fL RDW Coeff of Maria Del Carmen (11.5-14.5) % Plt Count (130-400) K/uL MPV (9.4-12.4) fL Immature Gran % (Auto) % Neut % (Auto) % Lymph % (Auto) % Ware % (Auto) % Eos % (Auto) % Baso % (Auto) % Neut # (Auto) (1.40-6.50) K/uL Lymph # (Auto) (1.20-3.40) K/uL Ware # (Auto) (0.11-0.59) K/uL Eos # (Auto) (0.00-0.50) K/uL Baso # (Auto) (0.00-0.20) K/uL Immature Gran # (Auto) (0.01-0.20) K/uL Sodium (136-145) mmol/L Potassium (3.5-5.1) mmol/L Chloride (98-107) mmol/L Carbon Dioxide (21-32) mmol/L Anion Gap (3-11) BUN (6-23) mg/dl Creatinine (0.6-1.2) mg/dl Est Cr Clr Drug Dosing ml/min eGFR BUN/Creatinine Ratio (10-20) Glucose (70-99(Fasting)) mg/dl POC Glucose 151 H 189 H 136 H (70-99) mg/dl Calcium (8.6-10.3) mg/dl Magnesium (1.7-2.4) mg/dl Iron (35-150) mcg/dl TIBC (250-450) mcg/dl Transferrin (200-360) mg/dl Transferrin % Sat (15-50) % Ferritin (8-388) ng/ml Total Bilirubin (0.2-1.0) mg/dl AST (13-39) U/L ALT (7-52) U/L Alkaline Phosphatase (34-104) U/L Total Protein (6.0-8.3) gm/dl Albumin (3.4-5.0) gm/dl Globulin (2.5-4.0) gm/dl Albumin/Globulin Ratio (0.9-2) Vitamin B12 (180-914) pg/ml Folate (>5.38) ng/ml TSH (0.300-4.500) uIu/ml Stool Occult Bld Scrn (Negative) Stl C. diff Tox B Gene (Neg) 10/15/24 10/15/24 10/14/24 Range/Units 07:35 06:25 20:25 WBC 9.53 (4.8-10.8) K/ul RBC 4.06 L (4.20-5.40) M/uL Hgb 9.6 L (12.0-16.0) g/dl Hct 31.6 L (37.0-47.0) % MCV 77.8 L (80.0-100.0) fL MCH 23.6 L (25.0-34.0) pg MCHC 30.4 L (32.0-36.0) g/dL RDW Std Deviation 51.4 H (36.4-46.3) fL RDW Coeff of Maria Del Carmen 18.4 H (11.5-14.5) % Plt Count 247 (130-400) K/uL MPV 9.9 (9.4-12.4) fL Immature Gran % (Auto) 0.3 % Neut % (Auto) 62.8 % Lymph % (Auto) 22.9 % Ware % (Auto) 9.4 % Eos % (Auto) 4.3 % Baso % (Auto) 0.3 % Neut # (Auto) 5.98 (1.40-6.50) K/uL Lymph # (Auto) 2.18 (1.20-3.40) K/uL Ware # (Auto) 0.90 H (0.11-0.59) K/uL Eos # (Auto) 0.41 (0.00-0.50) K/uL Baso # (Auto) 0.03 (0.00-0.20) K/uL Immature Gran # (Auto) 0.03 (0.01-0.20) K/uL Sodium 138 (136-145) mmol/L Potassium 4.6 (3.5-5.1) mmol/L Chloride 100 (98-107) mmol/L Carbon Dioxide 35 H (21-32) mmol/L Anion Gap 3 (3-11) BUN 24 H (6-23) mg/dl Creatinine 0.58 L (0.6-1.2) mg/dl Est Cr Clr Drug Dosing 81.6 ml/min eGFR 103.54 BUN/Creatinine Ratio 41.4 H (10-20) Glucose 116 H (70-99(Fasting)) mg/dl POC Glucose 131 H 168 H (70-99) mg/dl Calcium 9.3 (8.6-10.3) mg/dl Magnesium (1.7-2.4) mg/dl Iron (35-150) mcg/dl TIBC (250-450) mcg/dl Transferrin (200-360) mg/dl Transferrin % Sat (15-50) % Ferritin (8-388) ng/ml Total Bilirubin (0.2-1.0) mg/dl AST (13-39) U/L ALT (7-52) U/L Alkaline Phosphatase (34-104) U/L Total Protein (6.0-8.3) gm/dl Albumin (3.4-5.0) gm/dl Globulin (2.5-4.0) gm/dl Albumin/Globulin Ratio (0.9-2) Vitamin B12 258 (180-914) pg/ml Folate 6.10 (>5.38) ng/ml TSH 1.651 (0.300-4.500) uIu/ml Stool Occult Bld Scrn (Negative) Stl C. diff Tox B Gene (Neg) 10/14/24 10/14/24 10/14/24 Range/Units 16:50 11:41 10:05 WBC 8.99 (4.8-10.8) K/ul RBC 4.08 L (4.20-5.40) M/uL Hgb 9.6 L (12.0-16.0) g/dl Hct 31.6 L (37.0-47.0) % MCV 77.5 L (80.0-100.0) fL MCH 23.5 L (25.0-34.0) pg MCHC 30.4 L (32.0-36.0) g/dL RDW Std Deviation 51.5 H (36.4-46.3) fL RDW Coeff of Maria Del Carmen 18.4 H (11.5-14.5) % Plt Count 254 (130-400) K/uL MPV 10.2 (9.4-12.4) fL Immature Gran % (Auto) 0.3 % Neut % (Auto) 63.0 % Lymph % (Auto) 20.4 % Ware % (Auto) 11.8 % Eos % (Auto) 3.9 % Baso % (Auto) 0.6 % Neut # (Auto) 5.67 (1.40-6.50) K/uL Lymph # (Auto) 1.83 (1.20-3.40) K/uL Ware # (Auto) 1.06 H (0.11-0.59) K/uL Eos # (Auto) 0.35 (0.00-0.50) K/uL Baso # (Auto) 0.05 (0.00-0.20) K/uL Immature Gran # (Auto) 0.03 (0.01-0.20) K/uL Sodium 137 (136-145) mmol/L Potassium 4.6 (3.5-5.1) mmol/L Chloride 102 (98-107) mmol/L Carbon Dioxide 32 (21-32) mmol/L Anion Gap 3 (3-11) BUN 30 H (6-23) mg/dl Creatinine 0.58 L (0.6-1.2) mg/dl Est Cr Clr Drug Dosing 81.6 ml/min eGFR 103.54 BUN/Creatinine Ratio 51.7 H (10-20) Glucose 142 H (70-99(Fasting)) mg/dl POC Glucose 120 H 151 H (70-99) mg/dl Calcium 9.6 (8.6-10.3) mg/dl Magnesium 1.7 (1.7-2.4) mg/dl Iron (35-150) mcg/dl TIBC (250-450) mcg/dl Transferrin (200-360) mg/dl Transferrin % Sat (15-50) % Ferritin (8-388) ng/ml Total Bilirubin (0.2-1.0) mg/dl AST (13-39) U/L ALT (7-52) U/L Alkaline Phosphatase (34-104) U/L Total Protein (6.0-8.3) gm/dl Albumin (3.4-5.0) gm/dl Globulin (2.5-4.0) gm/dl Albumin/Globulin Ratio (0.9-2) Vitamin B12 (180-914) pg/ml Folate (>5.38) ng/ml TSH (0.300-4.500) uIu/ml Stool Occult Bld Scrn (Negative) Stl C. diff Tox B Gene (Neg) 10/14/24 10/13/24 10/13/24 Range/Units 05:54 20:40 16:42 WBC (4.8-10.8) K/ul RBC (4.20-5.40) M/uL Hgb (12.0-16.0) g/dl Hct (37.0-47.0) % MCV (80.0-100.0) fL MCH (25.0-34.0) pg MCHC (32.0-36.0) g/dL RDW Std Deviation (36.4-46.3) fL RDW Coeff of Maria Del Carmen (11.5-14.5) % Plt Count (130-400) K/uL MPV (9.4-12.4) fL Immature Gran % (Auto) % Neut % (Auto) % Lymph % (Auto) % Ware % (Auto) % Eos % (Auto) % Baso % (Auto) % Neut # (Auto) (1.40-6.50) K/uL Lymph # (Auto) (1.20-3.40) K/uL Ware # (Auto) (0.11-0.59) K/uL Eos # (Auto) (0.00-0.50) K/uL Baso # (Auto) (0.00-0.20) K/uL Immature Gran # (Auto) (0.01-0.20) K/uL Sodium (136-145) mmol/L Potassium (3.5-5.1) mmol/L Chloride (98-107) mmol/L Carbon Dioxide (21-32) mmol/L Anion Gap (3-11) BUN (6-23) mg/dl Creatinine (0.6-1.2) mg/dl Est Cr Clr Drug Dosing ml/min eGFR BUN/Creatinine Ratio (10-20) Glucose (70-99(Fasting)) mg/dl POC Glucose 139 H 133 H 156 H (70-99) mg/dl Calcium (8.6-10.3) mg/dl Magnesium (1.7-2.4) mg/dl Iron (35-150) mcg/dl TIBC (250-450) mcg/dl Transferrin (200-360) mg/dl Transferrin % Sat (15-50) % Ferritin (8-388) ng/ml Total Bilirubin (0.2-1.0) mg/dl AST (13-39) U/L ALT (7-52) U/L Alkaline Phosphatase (34-104) U/L Total Protein (6.0-8.3) gm/dl Albumin (3.4-5.0) gm/dl Globulin (2.5-4.0) gm/dl Albumin/Globulin Ratio (0.9-2) Vitamin B12 (180-914) pg/ml Folate (>5.38) ng/ml TSH (0.300-4.500) uIu/ml Stool Occult Bld Scrn (Negative) Stl C. diff Tox B Gene (Neg) 10/13/24 10/13/24 10/12/24 Range/Units 11:50 07:45 20:19 WBC (4.8-10.8) K/ul RBC (4.20-5.40) M/uL Hgb (12.0-16.0) g/dl Hct (37.0-47.0) % MCV (80.0-100.0) fL MCH (25.0-34.0) pg MCHC (32.0-36.0) g/dL RDW Std Deviation (36.4-46.3) fL RDW Coeff of Maria Del Carmen (11.5-14.5) % Plt Count (130-400) K/uL MPV (9.4-12.4) fL Immature Gran % (Auto) % Neut % (Auto) % Lymph % (Auto) % Ware % (Auto) % Eos % (Auto) % Baso % (Auto) % Neut # (Auto) (1.40-6.50) K/uL Lymph # (Auto) (1.20-3.40) K/uL Ware # (Auto) (0.11-0.59) K/uL Eos # (Auto) (0.00-0.50) K/uL Baso # (Auto) (0.00-0.20) K/uL Immature Gran # (Auto) (0.01-0.20) K/uL Sodium (136-145) mmol/L Potassium (3.5-5.1) mmol/L Chloride (98-107) mmol/L Carbon Dioxide (21-32) mmol/L Anion Gap (3-11) BUN (6-23) mg/dl Creatinine (0.6-1.2) mg/dl Est Cr Clr Drug Dosing ml/min eGFR BUN/Creatinine Ratio (10-20) Glucose (70-99(Fasting)) mg/dl POC Glucose 80 149 H 157 H (70-99) mg/dl Calcium (8.6-10.3) mg/dl Magnesium (1.7-2.4) mg/dl Iron (35-150) mcg/dl TIBC (250-450) mcg/dl Transferrin (200-360) mg/dl Transferrin % Sat (15-50) % Ferritin (8-388) ng/ml Total Bilirubin (0.2-1.0) mg/dl AST (13-39) U/L ALT (7-52) U/L Alkaline Phosphatase (34-104) U/L Total Protein (6.0-8.3) gm/dl Albumin (3.4-5.0) gm/dl Globulin (2.5-4.0) gm/dl Albumin/Globulin Ratio (0.9-2) Vitamin B12 (180-914) pg/ml Folate (>5.38) ng/ml TSH (0.300-4.500) uIu/ml Stool Occult Bld Scrn (Negative) Stl C. diff Tox B Gene (Neg) 10/12/24 10/12/24 10/12/24 Range/Units 16:40 11:38 07:47 WBC (4.8-10.8) K/ul RBC (4.20-5.40) M/uL Hgb (12.0-16.0) g/dl Hct (37.0-47.0) % MCV (80.0-100.0) fL MCH (25.0-34.0) pg MCHC (32.0-36.0) g/dL RDW Std Deviation (36.4-46.3) fL RDW Coeff of Maria Del Carmen (11.5-14.5) % Plt Count (130-400) K/uL MPV (9.4-12.4) fL Immature Gran % (Auto) % Neut % (Auto) % Lymph % (Auto) % Ware % (Auto) % Eos % (Auto) % Baso % (Auto) % Neut # (Auto) (1.40-6.50) K/uL Lymph # (Auto) (1.20-3.40) K/uL Ware # (Auto) (0.11-0.59) K/uL Eos # (Auto) (0.00-0.50) K/uL Baso # (Auto) (0.00-0.20) K/uL Immature Gran # (Auto) (0.01-0.20) K/uL Sodium (136-145) mmol/L Potassium (3.5-5.1) mmol/L Chloride (98-107) mmol/L Carbon Dioxide (21-32) mmol/L Anion Gap (3-11) BUN (6-23) mg/dl Creatinine (0.6-1.2) mg/dl Est Cr Clr Drug Dosing ml/min eGFR BUN/Creatinine Ratio (10-20) Glucose (70-99(Fasting)) mg/dl POC Glucose 89 103 H 111 H (70-99) mg/dl Calcium (8.6-10.3) mg/dl Magnesium (1.7-2.4) mg/dl Iron (35-150) mcg/dl TIBC (250-450) mcg/dl Transferrin (200-360) mg/dl Transferrin % Sat (15-50) % Ferritin (8-388) ng/ml Total Bilirubin (0.2-1.0) mg/dl AST (13-39) U/L ALT (7-52) U/L Alkaline Phosphatase (34-104) U/L Total Protein (6.0-8.3) gm/dl Albumin (3.4-5.0) gm/dl Globulin (2.5-4.0) gm/dl Albumin/Globulin Ratio (0.9-2) Vitamin B12 (180-914) pg/ml Folate (>5.38) ng/ml TSH (0.300-4.500) uIu/ml Stool Occult Bld Scrn (Negative) Stl C. diff Tox B Gene (Neg) 10/11/24 10/11/24 10/11/24 Range/Units 20:51 16:32 11:32 WBC (4.8-10.8) K/ul RBC (4.20-5.40) M/uL Hgb (12.0-16.0) g/dl Hct (37.0-47.0) % MCV (80.0-100.0) fL MCH (25.0-34.0) pg MCHC (32.0-36.0) g/dL RDW Std Deviation (36.4-46.3) fL RDW Coeff of Maria Del Carmen (11.5-14.5) % Plt Count (130-400) K/uL MPV (9.4-12.4) fL Immature Gran % (Auto) % Neut % (Auto) % Lymph % (Auto) % Ware % (Auto) % Eos % (Auto) % Baso % (Auto) % Neut # (Auto) (1.40-6.50) K/uL Lymph # (Auto) (1.20-3.40) K/uL Ware # (Auto) (0.11-0.59) K/uL Eos # (Auto) (0.00-0.50) K/uL Baso # (Auto) (0.00-0.20) K/uL Immature Gran # (Auto) (0.01-0.20) K/uL Sodium (136-145) mmol/L Potassium (3.5-5.1) mmol/L Chloride (98-107) mmol/L Carbon Dioxide (21-32) mmol/L Anion Gap (3-11) BUN (6-23) mg/dl Creatinine (0.6-1.2) mg/dl Est Cr Clr Drug Dosing ml/min eGFR BUN/Creatinine Ratio (10-20) Glucose (70-99(Fasting)) mg/dl POC Glucose 118 H 157 H 82 (70-99) mg/dl Calcium (8.6-10.3) mg/dl Magnesium (1.7-2.4) mg/dl Iron (35-150) mcg/dl TIBC (250-450) mcg/dl Transferrin (200-360) mg/dl Transferrin % Sat (15-50) % Ferritin (8-388) ng/ml Total Bilirubin (0.2-1.0) mg/dl AST (13-39) U/L ALT (7-52) U/L Alkaline Phosphatase (34-104) U/L Total Protein (6.0-8.3) gm/dl Albumin (3.4-5.0) gm/dl Globulin (2.5-4.0) gm/dl Albumin/Globulin Ratio (0.9-2) Vitamin B12 (180-914) pg/ml Folate (>5.38) ng/ml TSH (0.300-4.500) uIu/ml Stool Occult Bld Scrn (Negative) Stl C. diff Tox B Gene (Neg) 10/11/24 10/11/24 Range/Units 08:11 06:36 WBC 9.65 (4.8-10.8) K/ul RBC 4.74 (4.20-5.40) M/uL Hgb 11.3 L (12.0-16.0) g/dl Hct 35.9 L (37.0-47.0) % MCV 75.7 L (80.0-100.0) fL MCH 23.8 L (25.0-34.0) pg MCHC 31.5 L (32.0-36.0) g/dL RDW Std Deviation 48.2 H (36.4-46.3) fL RDW Coeff of Maria Del Carmen 17.6 H (11.5-14.5) % Plt Count 289 (130-400) K/uL MPV 10.2 (9.4-12.4) fL Immature Gran % (Auto) 0.3 % Neut % (Auto) 60.9 % Lymph % (Auto) 25.0 % Ware % (Auto) 9.8 % Eos % (Auto) 3.5 % Baso % (Auto) 0.5 % Neut # (Auto) 5.87 (1.40-6.50) K/uL Lymph # (Auto) 2.41 (1.20-3.40) K/uL Ware # (Auto) 0.95 H (0.11-0.59) K/uL Eos # (Auto) 0.34 (0.00-0.50) K/uL Baso # (Auto) 0.05 (0.00-0.20) K/uL Immature Gran # (Auto) 0.03 (0.01-0.20) K/uL Sodium 137 (136-145) mmol/L Potassium 4.7 (3.5-5.1) mmol/L Chloride 101 (98-107) mmol/L Carbon Dioxide 32 (21-32) mmol/L Anion Gap 4 (3-11) BUN 27 H (6-23) mg/dl Creatinine 0.65 (0.6-1.2) mg/dl Est Cr Clr Drug Dosing 72.8 ml/min eGFR 100.73 BUN/Creatinine Ratio 41.5 H (10-20) Glucose 133 H (70-99(Fasting)) mg/dl POC Glucose 137 H (70-99) mg/dl Calcium 9.3 (8.6-10.3) mg/dl Magnesium (1.7-2.4) mg/dl Iron 33 L (35-150) mcg/dl TIBC 428 (250-450) mcg/dl Transferrin 306 (200-360) mg/dl Transferrin % Sat 8 L (15-50) % Ferritin 24.2 (8-388) ng/ml Total Bilirubin (0.2-1.0) mg/dl AST (13-39) U/L ALT (7-52) U/L Alkaline Phosphatase (34-104) U/L Total Protein (6.0-8.3) gm/dl Albumin (3.4-5.0) gm/dl Globulin (2.5-4.0) gm/dl Albumin/Globulin Ratio (0.9-2) Vitamin B12 (180-914) pg/ml Folate (>5.38) ng/ml TSH (0.300-4.500) uIu/ml Stool Occult Bld Scrn (Negative) Stl C. diff Tox B Gene (Neg) Diagnostic Findings Lower Extremity CTA 10/01/24 14:21 CT ANGIOGRAPHY OF THE LEFT LOWER EXTREMITY CLINICAL HISTORY: Groin pain down to foot, hx of PAD. COMPARISON STUDY: Left lower extremity arterial Doppler ultrasound December 30, 2023. CTA with runoff July 14, 2021. CTA of the abdomen and pelvis July 01, 2024. TECHNIQUE: Helical axial images of the mid to lower abdomen, pelvis and left lower extremity were obtained during arterial phase following intravenous injection 120 cc of Optiray 320 IV. Sagittal and coronal reconstructions were viewed as well as maximal intensity projections on an independent 3-D workstation. Automated exposure control was utilized for the study. A dose lowering technique was utilized adhering to the principles of ALARA. FINDINGS: Visualized portions of the liver are unremarkable on arterial phase exam. There is no biliary ductal dilatation status post cholecystectomy. Spleen, adrenal glands and pancreas are unremarkable. There is no evidence for a bowel obstruction. The caliber and wall thickness of small and large bowel are normal. There are postoperative findings within the spine. There is no abdominal lymphadenopathy. No fluid collections are present. Postoperative findings consistent with right below-knee amputation. There is extensive plaque with multifocal stenoses within the right lower extremity vasculature. There is extensive atherosclerotic plaque within the abdominal aorta. No abdominal aortic aneurysm is present. Branch vessels are patent. There is extensive plaque within the left lower extremity vasculature. The left common iliac artery is patent. There is mild stenosis of the left external iliac artery. There is moderate stenosis of the left common femoral artery. There are moderate multifocal stenoses within the left superficial femoral artery. The left popliteal artery is patent. There is occlusion of the proximal left anterior tibial artery with distal reconstitution. The left dorsalis pedis is patent. The left peroneal artery is patent to the level of the syndesmosis. Multifocal stenoses of the left posterior tibial artery are present with occlusion and distal reconstitution. There is trace flow within the distal left posterior tibial artery. IMPRESSION: 1. Extensive atherosclerotic plaque within the left lower extremity. 2. Moderate multifocal stenoses within the left superficial femoral artery. 3. Occlusion of the proximal left anterior tibial artery which is new since CT of July 14, 2021. Distal reconstitution with patent left dorsalis pedis. 4. Occlusion of the distal left posterior tibial artery with distal reconstitution. Overall, significantly diminished flow within the left calf vessels. 5. Extensive plaque within the abdominal aorta. No aneurysm or stenosis within the abdominal aorta. Patent left common iliac artery. 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 6. Status post right below knee amputation. ACT 112: Negative or not required by law. Electronically signed by: Wilver Powell M.D. 10/01/2024 4:38 PM Ankle Brachial Index 10/02/24 13:56 Clinical history: Left foot pain. 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 A right NATHAN is therefore not possible The left NAHTAN is diminished at 0.82. Blood flow could not be detected within the left toes Impression: 1. Diminished left NATHAN at 0.82. This is indicative of mild to moderate severity peripheral arterial disease 2. Lack of detectable blood flow within the left toes, which could be due to distal arterial occlusion Electronically signed by Jose Jones 10-02-2024 4:17 PM Axilla US 10/13/24 15:25 EXAM: US axilla LT CLINICAL HISTORY: US left underarm area of redness to eval abscess. TECHNIQUE: Ultrasound of left axilla performed using a linear high frequency probe and multiple images obtained. COMPARISON: None. FINDINGS: 2 complex areas are seen in the left axilla, measuring 1.7 x 1.2 x 0.5 cm and 0.6 x 0.3 x 0.8 cm. These are associated with adjacent edema and thickening of the fat. Multiple internal Echoes and debris noted Left axilla 5.3 x .7 x 2.0 cm area of redness IMPRESSION: 1. The above-mentioned finding could represent a small abscess/inflamed lymph node with adjacent inflamed fat. 2. Advised clinical correlation or Further evaluation with CT can be obtained Electronically signed by Mika De Luna 10-13-2024 6:26 PM PG Care Time/CCT Total # of Minutes Spent Total Time Spent: 60 Total Time Spent with Patient: Total time spent is greater than 50% in coordination of care (as documented) at patient's floor/unit and/or counseling patient: C[place] [address] SUB INP/OBS CARE 350MIN Patient Type Established History Comprehensive Exam Comprehensive Medical Decision Making High Complexity Diagnoses Chronic pain syndrome G89.4 Chronic pain type: chronic pain syndrome Palliative care by specialist Z51.5 Nausea & vomiting R11.2 Vomiting type: unspecified (1) Chronic pain Chronic pain type: chronic pain syndrome Qualified Code(s): G89.4 - Chronic pain syndrome (3) Nausea & vomiting Vomiting type: unspecified Qualified Code(s): R11.2 - Nausea with vomiting, u nspecified
[2024-10-17 22:10] LABS: Calcium 8.2 mg/dl (8.6-10.3); Magnesium 1.6 mg/dl (1.7-2.4); Potassium 5.1 mmol/L (3.5-5.1)
[2024-10-17 22:16] LABS: Creatinine Clr Calc Pharmacy 25.2 ml/min
[2024-10-17] MEDS: ALBUMIN 25% 25 GM/100 ML VIAL IV ONE (22:22)
[2024-10-17] MEDS: DEXTROSE 50% 50 ML SYRINGE IV PRN (22:34)
[2024-10-17 22:50] LABS: Albumin Level 3.1 gm/dl (3.4-5.0); Bilirubin,Total 0.6 mg/dl (0.2-1.0)
[2024-10-17] MEDS: ACETAMINOPHEN 1,000 MG/100 ML VIAL IV SCH (22:55)
[2024-10-17 22:56] LABS: Albumin Globulin Ratio 1.4 (0.9-2); Globulin 2.2 gm/dl (2.5-4.0); Total Protein 5.3 gm/dl (6.0-8.3)
--- NOTE | 2024-10-17 23:20 | CT Scan Report ---
Exam(s): CT ABDOMEN + PELVIS Without Contrast EXAM: CT Abdomen and Pelvis Without Intravenous Contrast CLINICAL HISTORY: Abdominal Pain. TECHNIQUE: Axial computed tomography images of the abdomen and pelvis without intravenous contrast. CTDI is 20.15 mGy and DLP is 1051.01 mGy-cm. Automated exposure control was utilized for the study. A dose lowering technique was utilized adhering to the principles of ALARA. COMPARISON: CT abdomen and pelvis 06/02/2024 FINDINGS: Lung bases: Bibasilar airspace opacities could represent atelectasis, however cannot exclude atypical infection or aspiration given the appearance. ABDOMEN: Liver: Unremarkable. Gallbladder and bile ducts: Cholecystectomy. No ductal dilation. Pancreas: Unremarkable. No ductal dilation. Spleen: Unremarkable. No splenomegaly. Adrenals: Unremarkable. No mass. Kidneys and ureters: Nonobstructing punctate bilateral renal calculi. No hydronephrosis of either kidney. Stomach and bowel: The stomach is distended with significant debris, question thickening of the wall the distal stomach. Cannot exclude gastric outlet obstruction or bezoar. Fluid distended small bowel without transition point to suggest obstruction. Marked nonspecific thickening of the wall the rectosigmoid colon. Significant stool throughout the colon is concerning for constipation. PELVIS: Appendix: No findings to suggest acute appendicitis. Bladder: Unremarkable. No stones. Reproductive: Unremarkable as visualized. ABDOMEN and PELVIS: Intraperitoneal space: Mild free fluid in the abdomen and pelvis is nonspecific. No free air. Bones/joints: There are degenerative changes of the spine. No acute fracture. Grade 1 anterolisthesis of L4 on L5. Posterior fusion of L5 and S1 are noted. No dislocation. Soft tissues: Unremarkable. Vasculature: Mild atherosclerosis. No abdominal aortic aneurysm. Lymph nodes: Unremarkable. No enlarged lymph nodes. IMPRESSION: 1. Marked nonspecific thickening of the wall the rectosigmoid colon. This could be infectious, inflammatory or neoplastic. There is significant stool throughout the remainder of the colon this could represent constipation, however cannot exclude a degree of low-grade colonic obstruction. 2. Fluid distended small bowel without transition point to suggest obstruction. This could represent enteritis or ileus. 3. The stomach is distended with significant debris, question thickening of the wall the distal stomach. Cannot exclude gastric outlet obstruction or bezoar. 4. Nonobstructing punctate bilateral renal calculi. No hydronephrosis of either kidney. 5. Mild free fluid in the abdomen and pelvis is nonspecific. 6. Bibasilar airspace opacities could represent atelectasis, however cannot exclude atypical infection or aspiration given the appearance. Electronically signed by: Kandace Taylor MD 10/17/24 23:18 PM
[2024-10-18] MEDS: LACTATED RINGER'S 500 ML IV ONE ×3 (00:05→07:22)
--- NOTE | 2024-10-18 00:17 | Communication Note ---
Date of Service: October 18, 2024 Pt complaining of increasingly worse abdominal pain and distention earlier tonight. Pt seen at bedside and noted to have pain to even light palpation of the abdomen which is also quite distended. Pt also notes occasional muscle spasms, which are relatively new for her. CT abd done without contrast given new SRIKANTH on labs this morning and showed possible bowel obstruction/gastric outlet obstruction (see CT report for more). Placed pt NPO and ordered NG for low suction; general surgery consulted with no further recs. Per nurse, pt refused NG tube, advised nurse to try again in a bit. Also obtained stat labs; potassium improved 5.7 -> 5.1. Did not give any further pain meds/narcotics. Pt blood sugar was low, advised nurse given D50 per protocol. Also hypotensive throughout night, initially given 1 L fluids and given another 500 mL later in the night with improvement in blood pressure/MAP. Seen again around 4 am; encouraged acceptance of NG tube, pt states she would only do it if she were "knocked out so she would be asleep for the whole time." Notes at that time that the abdominal pain is definitely not any better. She is still febrile despite tylenol. Contacted GI, they will see her first thing this morning. Advised nurse to hold all narcotics until evaluated by GI. Will keep NPO. Lactate 1.9. Repeat labs ordered CBC and CMP. Timed lactate repeat for 7 am.
[2024-10-18] MEDS: LACTATED RINGER'S 1,000 ML IV SCH (00:35)
[2024-10-18] MEDS: MAGNESIUM SULFATE / D5W 1 GM/100 ML BAG IV ONE (01:04)
[2024-10-18] MEDS ORDERED: Nursing to Pharmacy Communication SCH ×2 (02:15→07:30)
[2024-10-18] MEDS: 4.5GM X1 IV ONE (04:50)
[2024-10-18 05:14] LABS: Basophils # (auto) 0.01 K/uL (0.00-0.20); Basophils % (auto) 0.1 %; Hematocrit (blood only) 29.5 % (37.0-47.0); Hemoglobin 9.2 g/dl (12.0-16.0); Immature Granulocytes # (auto) 0.04 K/uL (0.01-0.20); Immature Granulocytes % (auto) 0.5 %; Lymphocytes # (auto) 0.46 K/uL (1.20-3.40); Lymphocytes % (auto) 5.3 %; Mean Corpuscular Hemoglobin 23.4 pg (25.0-34.0); Mean Corpuscular Hgb Conc 31.2 g/dL (32.0-36.0); Mean Corpuscular Volume 75.1 fL (80.0-100.0); Mean Platelet Volume 9.8 fL (9.4-12.4); Monocytes # (auto) 0.53 K/uL (0.11-0.59); Monocytes % (auto) 6.1 %; Neutrophils # (auto) 7.61 K/uL (1.40-6.50); Platelet Count 184 K/uL (130-400); RDW Coefficient of Variation 18.8 % (11.5-14.5); RDW Standard Deviation 51.3 fL (36.4-46.3); Red Blood Count 3.93 M/uL (4.20-5.40); White Blood Count 8.65 K/ul (4.8-10.8)
[2024-10-18 05:30] LABS: Albumin Globulin Ratio 1.4 (0.9-2); Albumin Level 3.3 gm/dl (3.4-5.0); BUN Creatinine Ratio 35.8 (10-20); Bilirubin,Total 0.8 mg/dl (0.2-1.0); Calcium 8.2 mg/dl (8.6-10.3); Creatinine Clr Calc Pharmacy 32.7 ml/min; Globulin 2.3 gm/dl (2.5-4.0); Potassium 4.6 mmol/L (3.5-5.1); Total Protein 5.6 gm/dl (6.0-8.3)
--- NOTE | 2024-10-18 05:51 | Critical Care Consultation ---
Date of Consultation October 18, 2024 Assessment & Plan (1) SRIKANTH (acute kidney injury): (2) Hypovolemia: Plan Reason Critically Ill: 1. Hypovolemia 2. Hypotension, improving 3. Concern for bowel ischemia vs. obstruction. Also on differential is stercoral colitis 4. Sepsis possibly 2/2 gut bacterial translocation vs. pulmonary vs. skin 5. Acute hypoxic respiratory failure 6. SRIKANTH, improving 7. Hyperkalemia, resolved 8. Abdominal pain Neuro - RASS GOAL 0 Opiates held pending GI evaluation Palliative Care involved, appreciate continued recommendations APAP RPN pain/fever Continue Abilify, Cymbalta, Atarax, Lyrica, Seroquel, Requip, Trental Cardiac - Hold antihypertensives Continue mIVF as ordered Based on POCUS she remains hypovolemic. Will give additional 1L LR now DAPT may need to be held, will defer to GI Seen by Dr. Lin - presentation pain to L groin unlikely of vascular origin Respiratory - CXR pending given new oxygen requirement SpO2 goal 88-92% with history of emphysema (no PFT on file) DuoNeb PRN IS/Flutter GI - GI consulted, appreciate continued recommendations Diet: NPO SUP: PPI Bowel regimen: Miralax, advance to BID. Senna RENAL/LYTES - SRIKANTH improving Replete electrolytes as indicated No indication for plummer catheter Maintain net even to net negative LA WNL ENDO - No acute concerns BG 140-180 per SCCM guidelines ISS if needed while inpatient HEME - DAPT as ordered, may need to be held for procedure ID - With her fever and WBC I will order an infectious work-up BCx2 now, CXR now, procalcitonin pending, MRSA pending, UA/UCx pending Continue Levaquin and Daptomycin, evaluate for de-escalation as guided by culture data LINES/TUBES/DRAINS - PIV x2 NGT (Day #1) DVT PROPHYLAXIS - Enoxaparin DISPOSITION - ICU pending evaluation from GI I have personally spent 38 minutes of critical care time in the direct management of this patient. This is a life/limb threatening event. This includes time spent evaluating patient, direct bedside care, chart review, placing orders, interpretation of diagnostic studies, discussion with consultants, patient, and family members, as well as other required patient management activities. This time is exclusive of all separately billable procedures, and teaching time and separate from and in addition to any other critical care service time. Thank you for allowing us to participate in the care of this patient. Please refer to my attending physician's documentation for any further recommendations. Supervising Physician Co-Signing Physician Notes Patient seen and examined. EMR reviewed. Discussed with critical care GR[facility] and agree with assessment plan as noted. Patient has prolonged hospitalization. She was transferred down due to abdominal pain and possible bowel obstruction. NG tube been placed. She has been seen by GI. They recommended surgical consultation which is pending. She was persistently hypotensive. IV access was poor. A central line was obtained. Please refer to separate progress note. Continued volume expansion with albumin, crystalloid and replaced electrolytes. Will use Pranay-Synephrine if needed. Will defer management of her chronic pain to the primary admitting service to avoid confusion with regards to her chronic pain management issues. Will recheck the lactate later this afternoon after resuscitation. She is currently receiving Levaquin and daptomycin. Unclear what were treating at this point in time but it appears to be based on intra-abdominal coverage. May be able to adjust antibiotics to include better anaerobic coverage if GI pathology is suspected Discussed with critical care nurse at bedside. History of Present Illness Reason for Consultation: Concern for intestinal ischemia Requesting Physician: Shemar Attending Physician: Milan Senior MD History of Present Illness Ms. 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 Course has been significant for adjustments in pain regimen as guided by Palliative Care team, lymphadenitis vs. abscess of L axilla covered with Daptomycin and Levaquin, mi crocytic anemia with heme positive stool, SRIKANTH, and hypotension responsive to IVF. Patient developed fever on 10/17 as well. Evaluated by GI on 10/17 with plans for nonemergent upper and lower endoscopy. Overnight the patient developed severe abdominal pain. Underwent CT AP showing stomach wall thickening (GOO vs. bezoar), distended small bowel without obstruction, constipation with marked thickening of the rectosigmoid colon wall (unable to rule out colonic obstruction). She received 1.5L IVF throughout the night due to hypotension with improvement. GI was contacted and per primary team recommending NPO and transfer to ICU. Patient was seen in room 221. She is AAOx3. No acute distress. Having small nonbloody liquid bowel movements. She is slightly tachycardic but otherwise hemodynamically stable.. SpO2 > 90% on 4L NC. Lactic acid 1.9. Labs are improved from prior. WBC downtrending, K normalized, Cr downtrending. HGB is stable at 9.2. She is complaining of severe abdominal pain. This is non-peritoneal on examination, but she is tender to light palpation throughout. No other complaints. I was able to convince her to allow NGT placement. She was brought to ICU for continuation of care. POCUS on arrival to ICU shows hyperdynamic LV with grossly normal systolic function. No obvious WMA. IVC is small and collapsible. Additional IVF ordered. Allergies Allergy/AdvReac Type Severity Reaction Status Date / Time morphine Allergy Severe blisters Verified 02/10/24 22:40 in mouth Sulfa (Sulfonamide Allergy Severe rash/swelli Verified 02/10/24 22:40 Antibiotics) ng amoxicillin [From Augmentin] Allergy Intermediate itching/power Verified 02/10/24 22:40 h ceftriaxone [From Rocephin] Allergy Intermediate Hives Verified 02/10/24 22:40 clavulanic acid Allergy Intermediate itching/power Verified 02/10/24 22:40 [From Augmentin] h erythromycin base Allergy Intermediate Hives Verified 02/10/24 22:40 vancomycin Allergy Intermediate YULIYA Verified 02/10/24 22:40 SYNDROME---CAN TAKE IF VERY SLOW DRIP. adhesive AdvReac Intermediate DERMABOND Verified 02/10/24 22:40 excoriates skin gabapentin AdvReac Intermediate Nausea Verified 02/10/24 22:40 iron [From Venofer] AdvReac Intermediate Hypertensio Verified 02/10/24 22:40 n Home Medications Medication Instructions Recorded Confirmed Type insulin glargine 100 unit/mL (3 10 unit subcut HS 10/17/22 09/28/24 History mL) subcutaneous pen (Lantus Solostar U-100 Insulin) alprazolam 1 mg tablet 1 mg PO TID PRN Anxiety 05/08/23 10/01/24 History docusate sodium 100 mg capsule 100 mg PO BID 05/08/23 09/28/24 History metoprolol succinate 50 mg 50 mg PO QAM 05/08/23 09/28/24 History tablet,extended release 24 hr (Toprol XL) clopidogrel 75 mg tablet (Plavix) 75 mg PO DAILY #30 tabs 05/10/23 09/28/24 Rx prochlorperazine maleate 5 mg 5 mg PO TID PRN Nausea 06/13/23 09/28/24 History tablet aspirin 81 mg tablet,delayed 81 mg PO DAILY 09/19/23 09/28/24 History release hydralazine 25 mg tablet 25 mg PO TID 09/19/23 09/28/24 History clonidine HCl 0.1 mg tablet 0.1 mg PO Q8H #90 tabs 04/03/24 09/28/24 Rx naloxone 4 mg/actuation nasal spray 4 mg intranasal ONCE PRN opioid 04/03/24 09/28/24 Rx overdose #2 ea polyethylene glycol 3350 17 gram 17 g PO BID #0 ea 04/03/24 09/28/24 Rx oral powder packet (Miralax) pregabalin 100 mg capsule (Lyrica) 100 mg PO TID #90 caps 04/03/24 09/28/24 Rx sennosides 8.6 mg tablet (Senokot) 17.2 mg (2 x 8.6 mg) PO BID PRN 04/03/24 09/28/24 Rx constipation #60 tabs duloxetine 60 mg capsule,delayed 60 mg PO DAILY 06/02/24 09/28/24 History release insulin aspart 5 unit subcut TIDM 06/02/24 09/28/24 History (niacinamide)(U-100) 100 unit/mL(3 mL) subcutaneous pen (Fiasp FlexTouch U-100 Insulin) lisinopril 20 mg tablet 20 mg PO DAILY 06/02/24 09/28/24 History ropinirole 4 mg tablet 8 mg PO HS 06/02/24 09/28/24 History sucralfate 100 mg/mL oral 1 g (10 mL) PO ACHS #200 mL 06/05/24 09/28/24 Rx suspension (Carafate) aripiprazole 5 mg tablet (Abilify) 2.5 mg (1/2 x 5 mg) PO QAM #30 tabs 07/09/24 09/28/24 Rx hydroxyzine HCl 25 mg tablet 50 mg (2 x 25 mg) PO HS #30 tabs 07/09/24 09/28/24 Rx quetiapine 25 mg tablet 25 mg PO HS 10/06/24 10/06/24 History Patient History Medical History Dysphagia Lumbar radiculopathy, right Type 2 diabetes mellitus Uncontrolled hypertension GERD (gastroesophageal reflux disease) Amputation of left great toe Poor venous access Hyponatremia Intractable neuropathic pain of left lower extremity Gastroparesis Leukocytosis Insomnia HTN (hypertension) Hypertension Groin pain Foot pain Infection of left great toe due to methicillin resistant Staphylococcus aureus (MRSA) Diastolic CHF COVID-19 Osteomyelitis of great toe of left foot Opiate dependence Opiate abuse, continuous Acidosis, lactic Acute dehydration Gastroenteritis Sepsis Shortness of breath Opioid dependence Insomnia 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 No issues per anesthesia postop progress note. Anemia Hyponatremia Cellulitis Peripheral neuropathy Benzodiazepine withdrawal Right second toe ulcer Diabetes mellitus type 2, uncontrolled Hyperlipidemia Seizures Gastritis Numbness of lower extremity Hypertriglyceridemia CAD (coronary artery disease) History of tobacco use Benzodiazepine dependence Diabetic neuropathy Abdominal pain Gastroparesis Esophagitis determined by endoscopy GIB (gastrointestinal bleeding) Insulin dependent diabetes mellitus DM2 (diabetes mellitus, type 2) IDDM, A1c 07/2021-11% Surgical History History of lumbar fusion L5-S1 from 2004, [place] History of lumbar surgery History of esophagogastroduodenoscopy (EGD) Family History Mother , age 63 Myocardial infarction Father , age 68 or 69 Myocardial infarction Brother S/P CABG (coronary artery bypass graft) Sister Myocardial infarction x 3; she is 57yo Social History Smoking Status: Former smoker Tobacco Type: Cigarettes packs per day: 0.5; Second Hand Exposure: No; Do You Dip or Chew Tobacco: No; Hx Alcohol Use: No Hx Substance Use: Yes Prescribed Medications: Marijuana Last Used Substance: Unknown Last Used Substance Other:: Medical marijuana Substance Use Type Other:: Medical marijuana Preferred Language: [place] Communication Ability: Effective Visual Impairment: No Limitations Hearing Ability: Normal Microfilm Operator Required: No Beliefs That Will Affect Care: None marital status: Current Living Situation: Spouse Current Living Situation Comment: lives at home with current occupational status: unemployed 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 other: raising a grandchild as well; lives in [place] Feels Safe at Home: Yes Diet: diabetic and low salt during the past year weight has: remained stable Assistive Devices: Bedside Commode, Glasses, Walker and Wheelchair Review of Systems Review of Systems: All systems reviewed & are unremarkable except as noted in Subjective Physical Exam Constitutional: + frail appearing; not in distress Eyes: PERRL ENMT: very poor dentition, MM dry, lips cracked. Throat is clear Neck: normal visual inspection and trachea midline Respiratory: normal respiratory effort Auscultation: + diminished lung sounds and + rhonchi; no crackles and no wheezes Cardiovascular: Rate/Rhythm: regular rhythm and + tachycardic Heart Sounds: no murmur Vessels: no JVD Extremities: no edema R BKA well healed. 2 toes on L foot absent. She is warm and well perfused throughout Gastrointestinal (Abdomen): Inspection/Auscultation: + abdomen distended and + hypoactive bowel sounds Percussion/Palpation: + abdomen tender, + guarding and abdomen soft; abdomen not rigid, no pulsatile mass and no fluid wave Skin: normal turgor L axilla erythema without tenderness, no skin lesion or obvious fluctuance Neurologic: PERRL, EOMI, accommodation nl, no face palsy, no dysarthria normal touch/pain/proprioception; no focal motor deficits Psychiatric: Orientation: oriented x 3 Apperance: + disheveled Eye Contact: good eye contact Speech: normal rate/rhythm/volume of speech Affect: + tearful affect Thought Process: clear/coherent thought process Thought Content: + preoccupation Judgment: good judgement Results & Data Results & Data Vital Signs (Past 12 Hours) Vital Signs Temp Pulse Resp BP BP Pulse Ox O2 Del Method 10/18/24 02:55 37.8 C H 114 H 18 97/60 L 93 Room Air 10/18/24 00:11 103/62 10/18/24 00:00 Room Air 10/17/24 22:53 37.8 C H 110 H 18 93 Room Air 10/17/24 22:52 100/63 10/17/24 21:30 37.2 C 18 129/62 96 Room Air 10/17/24 20:18 85/50 L 10/17/24 20:10 Room Air 10/17/24 19:30 38.8 C H 106 H 18 83/37 L 92 Room Air Laboratory Results Reviewed Diagnostic Findings Reviewed Medications Administered See RADHA Coding Level of Care Code 05764 CRITICAL CARE 1ST 30-74M Diagnoses SRIKANTH (acute kidney injury) N17.9 Hypovolemia E86.1 Time Spent (min) 38
[2024-10-18] MEDS ORDERED: ALBUT/IPRATROP 3MG/0.5MG NEB 3 ML VIAL NEB PRN (06:43)
--- NOTE | 2024-10-18 07:42 | Gastroenterology Progress Note ---
Date of Service October 18, 2024 Assessment & Plan (1) Abdominal pain: Plan: Events of last night noted. Transferred to ICU. Developed severe abdominal pain low-grade fever. CT scan showed large stool volume in the colon fluid- filled small bowel loops possibly related to enteritis and a distended stomach. There was some free fluid in the abdomen as well. Initially was concerned with the possibility of mesenteric ischemia due to narcotic bowel. However after NG tube placement she is symptomatically improved. Her white count has normalized. Awaiting repeat lactate level. Still would recommend having surgery see the patient to get them on board. Presently no peritoneal signs. Await repeat lactate level. Continue empiric antibiotics await blood culture results. Would also check a C. difficile stool test. Avoid narcotics. (2) Heme positive stool: Plan: Will ultimately need endoscopic evaluation after resolution of her acute abdominal issues. Continue to monitor her hemoglobin and hematocrit. Admission and Anticipated Discharge Date Admission Date: October 01, 2024 Subjective Feels better after placement of NG tube. Less abdominal pain. Denies shortness of breath or chest pain. Physical Exam Physical Exam: Eyes; anicteric HENT No masses Chest clear to A Cor S1, S2 physiologic Abd: Distended mild general tenderness no rebound no guarding bowel sounds hypoactive Ext no edema Results & Data Results & Data Vital Signs (Past 12 Hours) Vital Signs Temp Pulse Pulse Resp BP BP BP 10/18/24 07:30 76/44 L 10/18/24 07:30 102 H 20 10/18/24 07:15 73/39 L 10/18/24 07:15 73/39 L 10/18/24 07:06 108 H 29 H 10/18/24 07:00 82/39 L 10/18/24 07:00 82/39 L 10/18/24 06:54 101 H 20 10/18/24 06:52 68/38 L 10/18/24 06:52 68/38 L 10/18/24 06:48 61/42 L 10/18/24 06:46 69/39 L 10/18/24 06:36 113 H 29 H 10/18/24 06:30 102/37 L 10/18/24 06:30 102/37 L 10/18/24 06:30 37.7 C H 102/37 L 10/18/24 06:21 121 H 33 H 10/18/24 02:55 37.8 C H 114 H 18 97/60 L 10/18/24 00:11 103/62 10/18/24 00:00 10/17/24 22:53 37.8 C H 110 H 18 10/17/24 22:52 100/63 10/17/24 21:30 37.2 C 18 129/62 10/17/24 20:18 85/50 L 10/17/24 20:10 Pulse Ox O2 Del Method O2 Flow Rate FiO2 10/18/24 07:30 10/18/24 07:30 92 Nasal Cannula 4 10/18/24 07:15 10/18/24 07:15 10/18/24 07:06 89 L 10/18/24 07:00 10/18/24 07:00 10/18/24 06:54 91 10/18/24 06:52 10/18/24 06:52 10/18/24 06:48 10/18/24 06:46 10/18/24 06:36 90 Nasal Cannula 4 10/18/24 06:30 10/18/24 06:30 10/18/24 06:30 Nasal Cannula 4 10/18/24 06:21 90 10/18/24 02:55 93 Room Air 10/18/24 00:11 10/18/24 00:00 Room Air 10/17/24 22:53 93 Room Air 10/17/24 22:52 10/17/24 21:30 96 Room Air 10/17/24 20:18 10/17/24 20:10 Room Air Laboratory Results Laboratory Results - last 48 hr 10/16/24 10/16/24 10/16/24 07:46 11:35 16:22 WBC RBC Hgb Hct MCV MCH MCHC RDW Std Deviation RDW Coeff of Maria Del Carmen Plt Count MPV Immature Gran % (Auto) Neut % (Auto) Lymph % (Auto) Rice % (Auto) Eos % (Auto) Baso % (Auto) Neut # (Auto) Lymph # (Auto) Rice # (Auto) Eos # (Auto) Baso # (Auto) Immature Gran # (Auto) Sodium Potassium Chloride Carbon Dioxide Anion Gap BUN Creatinine Est Cr Clr Drug Dosing eGFR BUN/Creatinine Ratio Glucose POC Glucose 98 75 143 H Lactate Calcium Magnesium Total Bilirubin AST ALT Alkaline Phosphatase Total Protein Albumin Globulin Albumin/Globulin Ratio Nasal Screen MRSA (PCR) Stool Occult Bld Scrn Stl C. diff Tox B Gene 10/16/24 10/17/24 10/17/24 21:00 06:29 08:02 WBC RBC Hgb Hct MCV MCH MCHC RDW Std Deviation RDW Coeff of Maria Del Carmen Plt Count MPV Immature Gran % (Auto) Neut % (Auto) Lymph % (Auto) Rice % (Auto) Eos % (Auto) Baso % (Auto) Neut # (Auto) Lymph # (Auto) Rice # (Auto) Eos # (Auto) Baso # (Auto) Immature Gran # (Auto) Sodium 135 L Potassium 5.7 H D Chloride 104 Carbon Dioxide 20 L Anion Gap 11 BUN 55 H D Creatinine 2.10 H D Est Cr Clr Drug Dosing 22.5 eGFR 26.48 BUN/Creatinine Ratio 26.2 H Glucose 108 H POC Glucose 124 H 122 H Lactate Calcium 8.6 Magnesium 1.8 Total Bilirubin 0.5 AST 42 H ALT 21 Alkaline Phosphatase 311 H Total Protein 5.7 L Albumin 3.4 Globulin 2.3 L Albumin/Globulin Ratio 1.5 Nasal Screen MRSA (PCR) Stool Occult Bld Scrn Stl C. diff Tox B Gene 10/17/24 10/17/24 10/17/24 08:45 11:33 14:01 WBC RBC Hgb Hct MCV MCH MCHC RDW Std Deviation RDW Coeff of Maria Del Carmen Plt Count MPV Immature Gran % (Auto) Neut % (Auto) Lymph % (Auto) Rice % (Auto) Eos % (Auto) Baso % (Auto) Neut # (Auto) Lymph # (Auto) Rice # (Auto) Eos # (Auto) Baso # (Auto) Immature Gran # (Auto) Sodium Potassium Chloride Carbon Dioxide Anion Gap BUN Creatinine Est Cr Clr Drug Dosing eGFR BUN/Creatinine Ratio Glucose POC Glucose 91 Lactate Calcium Magnesium Total Bilirubin AST ALT Alkaline Phosphatase Total Protein Albumin Globulin Albumin/Globulin Ratio Nasal Screen MRSA (PCR) Stool Occult Bld Scrn Positive A Stl C. diff Tox B Gene Negative Cdiff Gene 10/17/24 10/17/24 10/17/24 14:34 16:49 20:58 WBC 14.60 H RBC 3.93 L Hgb 9.4 L Hct 30.2 L MCV 76.8 L MCH 23.9 L MCHC 31.1 L RDW Std Deviation 52.0 H RDW Coeff of Maria Del Carmen 18.7 H Plt Count 211 MPV 10.7 Immature Gran % (Auto) Neut % (Auto) Lymph % (Auto) Rice % (Auto) Eos % (Auto) Baso % (Auto) Neut # (Auto) Lymph # (Auto) Rice # (Auto) Eos # (Auto) Baso # (Auto) Immature Gran # (Auto) Sodium Potassium Chloride Carbon Dioxide Anion Gap BUN Creatinine Est Cr Clr Drug Dosing eGFR BUN/Creatinine Ratio Glucose POC Glucose 110 H 72 Lactate Calcium Magnesium Total Bilirubin AST ALT Alkaline Phosphatase Total Protein Albumin Globulin Albumin/Globulin Ratio Nasal Screen MRSA (PCR) Stool Occult Bld Scrn Stl C. diff Tox B Gene 10/17/24 10/17/24 10/17/24 21:32 21:43 22:29 WBC RBC Hgb Hct MCV MCH MCHC RDW Std Deviation RDW Coeff of Maria Del Carmen Plt Count MPV Immature Gran % (Auto) Neut % (Auto) Lymph % (Auto) Rice % (Auto) Eos % (Auto) Baso % (Auto) Neut # (Auto) Lymph # (Auto) Rice # (Auto) Eos # (Auto) Baso # (Auto) Immature Gran # (Auto) Sodium 131 L Potassium 5.1 Chloride 102 Carbon Dioxide 19 L Anion Gap 10 BUN 62 H Creatinine 1.88 H Est Cr Clr Drug Dosing 25.2 eGFR 30.24 BUN/Creatinine Ratio 33.0 H Glucose 88 POC Glucose 67 L* 67 L* Lactate Calcium 8.2 L Magnesium 1.6 L Total Bilirubin 0.6 AST 49 H ALT 21 Alkaline Phosphatase 361 H Total Protein 5.3 L Albumin 3.1 L Globulin 2.2 L Albumin/Globulin Ratio 1.4 Nasal Screen MRSA (PCR) Stool Occult Bld Scrn Stl C. diff Tox B Gene 10/17/24 10/18/24 10/18/24 23:37 04:15 05:04 WBC 8.65 RBC 3.93 L Hgb 9.2 L Hct 29.5 L MCV 75.1 L MCH 23.4 L MCHC 31.2 L RDW Std Deviation 51.3 H RDW Coeff of Maria Del Carmen 18.8 H Plt Count 184 MPV 9.8 Immature Gran % (Auto) 0.5 Neut % (Auto) 88.0 Lymph % (Auto) 5.3 Rice % (Auto) 6.1 Eos % (Auto) 0.0 Baso % (Auto) 0.1 Neut # (Auto) 7.61 H Lymph # (Auto) 0.46 L Rice # (Auto) 0.53 Eos # (Auto) 0.00 Baso # (Auto) 0.01 Immature Gran # (Auto) 0.04 Sodium 131 L Potassium 4.6 Chloride 102 Carbon Dioxide 23 Anion Gap 6 BUN 58 H Creatinine 1.62 H Est Cr Clr Drug Dosing 32.7 eGFR 36.15 BUN/Creatinine Ratio 35.8 H Glucose 94 POC Glucose 118 H Lactate 1.9 Calcium 8.2 L Magnesium Total Bilirubin 0.8 AST 54 H ALT 21 Alkaline Phosphatase 376 H Total Protein 5.6 L Albumin 3.3 L Globulin 2.3 L Albumin/Globulin Ratio 1.4 Nasal Screen MRSA (PCR) Stool Occult Bld Scrn Stl C. diff Tox B Gene 10/18/24 Unknown WBC RBC Hgb Hct MCV MCH MCHC RDW Std Deviation RDW Coeff of Maria Del Carmen Plt Count MPV Immature Gran % (Auto) Neut % (Auto) Lymph % (Auto) Rice % (Auto) Eos % (Auto) Baso % (Auto) Neut # (Auto) Lymph # (Auto) Rice # (Auto) Eos # (Auto) Baso # (Auto) Immature Gran # (Auto) Sodium Potassium Chloride Carbon Dioxide Anion Gap BUN Creatinine Est Cr Clr Drug Dosing eGFR BUN/Creatinine Ratio Glucose POC Glucose Lactate Calcium Magnesium Total Bilirubin AST ALT Alkaline Phosphatase Total Protein Albumin Globulin Albumin/Globulin Ratio Nasal Screen MRSA (PCR) Negative Stool Occult Bld Scrn Stl C. diff Tox B Gene Diagnostic Findings Abdomen/Pelvis CT 10/17/24 20:20 Exam(s): CT ABDOMEN + PELVIS Without Contrast EXAM: CT Abdomen and Pelvis Without Intravenous Contrast CLINICAL HISTORY: Abdominal Pain. TECHNIQUE: Axial computed tomography images of the abdomen and pelvis without intravenous contrast. CTDI is 20.15 mGy and DLP is 1051.01 mGy-cm. Automated exposure control was utilized for the study. A dose lowering technique was utilized adhering to the principles of ALARA. COMPARISON: CT abdomen and pelvis 06/02/2024 FINDINGS: Lung bases: Bibasilar airspace opacities could represent atelectasis, however cannot exclude atypical infection or aspiration given the appearance. ABDOMEN: Liver: Unremarkable. Gallbladder and bile ducts: Cholecystectomy. No ductal dilation. Pancreas: Unremarkable. No ductal dilation. Spleen: Unremarkable. No splenomegaly. Adrenals: Unremarkable. No mass. Kidneys and ureters: Nonobstructing punctate bilateral renal calculi. No hydronephrosis of either kidney. Stomach and bowel: The stomach is distended with significant debris, question thickening of the wall the distal stomach. Cannot exclude gastric outlet obstruction or bezoar. Fluid distended small bowel without transition point to suggest obstruction. Marked nonspecific thickening of the wall the rectosigmoid colon. Significant stool throughout the colon is concerning for constipation. PELVIS: Appendix: No findings to suggest acute appendicitis. Bladder: Unremarkable. No stones. Reproductive: Unremarkable as visualized. ABDOMEN and PELVIS: Intraperitoneal space: Mild free fluid in the abdomen and pelvis is nonspecific. No free air. Bones/joints: There are degenerative changes of the spine. No acute fracture. Grade 1 anterolisthesis of L4 on L5. Posterior fusion of L5 and S1 are noted. No dislocation. Soft tissues: Unremarkable. Vasculature: Mild atherosclerosis. No abdominal aortic aneurysm. Lymph nodes: Unremarkable. No enlarged lymph nodes. IMPRESSION: 1. Marked nonspecific thickening of the wall the rectosigmoid colon. This could be infectious, inflammatory or neoplastic. There is significant stool throughout the remainder of the colon this could represent constipation, however cannot exclude a degree of low-grade colonic obstruction. 2. Fluid distended small bowel without transition point to suggest obstruction. This could represent enteritis or ileus. 3. The stomach is distended with significant debris, question thickening of the wall the distal stomach. Cannot exclude gastric outlet obstruction or bezoar. 4. Nonobstructing punctate bilateral renal calculi. No hydronephrosis of either kidney. 5. Mild free fluid in the abdomen and pelvis is nonspecific. 6. Bibasilar airspace opacities could represent atelectasis, however cannot exclude atypical infection or aspiration given the appearance. Electronically signed by: Kandace Taylor MD 10/17/24 23:18 PM PG Care Time/CCT Total # of Minutes Spent Total Time Spent with Patient: Total time spent is greater than 50% in coordination of care (as documented) at patient's floor/unit and/or counseling patient: Coding Level of Care Code 47965 SUB INP/OBS CARE 3/50MIN Diagnoses Abdominal pain R10.9 Heme positive stool R19.5
[2024-10-18] MEDS: ICU Protocol for HYPERglycemia SCH (07:56)
[2024-10-18] MEDS: ALBUMIN 25% 25 GM/100 ML VIAL IV SCH (08:08)
[2024-10-18] MEDS: CALCIUM GLUCONATE 1,000 MG/60 ML BAG IV SCH (08:08)
[2024-10-18] MEDS: fentaNYL citrate PF 100 MCG/2 ML VIAL IV STA (08:30)
[2024-10-18] MEDS: SODIUM CHLORIDE 0.9% 1,000 ML IV SCH (09:00)
--- NOTE | 2024-10-18 09:10 | Hospitalist Progress Note ---
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 The pain is not consistent with ischemia, she has been seen by vascular medicine Dr Lin in December 2023 and again this admission for similar pain and not suspected to be due to ischemia and she has good dorsalis pedis pulse on palpation. Her left foot is cool but with good capillary refill. CTA 10/01/24 shows some progression of PAD To LLE. Patient has failed different long and short acting opioids to include MS Contin, Morphine, and methadone, Fentanyl patch caused hallucinations Etiology is most likely neuropathic and ischemic pain with parts of this likely being hyperalgesia. Thus far she is tolerating fentanyl patch without any hallucinations. Reports the 40 mg of oxycodone is making her too tired -Palliative Med managing pain control -increased fentanyl patch to 100 mcg on 10/15-nurse navigator working on prior authorization to see if this is affordable for her -increased Lyrica to 150mg tid, continue duloxetine same dose -increased oxycodone to 40mg po q4h prn breakthrough pain on 10/14 but now decreasing back to 30 mg on 10/16 -continue dilaudid IV but decrease dose to 0.2 Mg IV every 4 hours prn breakthrough pain if oxy not effective -Patient agreeable to referral to see a therapist on an intensive basis as an outpatient-psychiatric behavioral health liaison is consulted to assist with this -fentanyl currently on hold 2nd to hypotension (2) Abdominal pain: Plan: -Pt with CT showing Marked nonspecific thickening of the wall the rectosigmoid colon. This could be infectious, inflammatory or neoplastic. There is significant stool throughout the remainder of the colon this could represent constipation, however cannot exclude a degree of low-grade colonic obstruction. -NGT inserted -IVF -abx daptomycin/levaquin -GI consult appreciated, recommending endoscopy once acute abdominal issues resolved. -surgery consulted (3) Abscess: Plan: developed acute onset of painful swollen lumps in left axilla on 10/10. Suspected lymphadenitis initially and then formed a fluctuant mass in left axilla consistent with abscess/phlegmon. Has been on Daptomycin since 10/10 and Levaquin since 10/12. Leukocytosis improved, remains afebrile. Fluctuant area is smaller in size on 10/14. Surgery held off on I&D for now. -continue Dapto and Levaquin x 10 day course but can convert to po levofloxacin and doxycycline meds if ready for discharge otherwise -consult Gen Surgery appreciated-no surgery indicated -Continue to monitor for improvement-slowly improving but will reassess for need for incision and drainage each day -continue pain control as above (4) PAD (peripheral artery disease): Plan: with a h/o right BKA, left toe amputations, multiple angioplasties. Seen by Vascular Med here and nothing acute that needs intervention -continue on aspirin and plavix -added pentoxifylline to try to improve circulation in case her pain is from any ischemia. (5) Anemia: Plan: hemoglobin slowly trending down to 9.6, microcytic. Transferrin saturation low at 8%, ferritin low at 24. No evidence of bleeding from anywhere obvious. B12 low normal at 258, folate normal at 6, TSH normal. She is intolerant to Venofer in the past-caused hypertension. She had tolerated Ferrlecit in the past-I gave her dose on 10/16 and it caused her nausea, belching, and "shakiness." -Will cautiously start oral iron supplementation instead now that she is moving her bowels but does have a history of opioid-induced constipation -started B12 1000 mcg po qAM -Follow CBC -Consider outpatient GI workup after discharge for occult GI blood loss Plan This patient is a 59-year-old female with a history of chronic pain, significant PAD s/p right BKA and amputations of her left toes, DM2 with neuropathy, who has been intermittently in our hospital with paroxysms of uncontrolled pain. Patient has seen pain management and multiple other specialties. She has at times had vascular procedures to improve blood flow without great improvement in her pain. Patient has failed an ilio inguinal nerve block in the past. She presents once again with her chronic left and right groin pain requiring parenteral opiate therapy - Disposition - continued stay med/surg while weaning off of IV Dilaudid and breonna toring left axillary abscess/cellulitis-Nurse Navigator will need to do a prior auth for Fentanyl patch-pending Admission and Anticipated Discharge Date Admission Date: October 01, 2024 Subjective Pt was upgraded to ICU yesterday, after complaining of abdominal pain, having persistent hypotension, and CT a/p showing possible obstruction vs colitis. Pt had NGT inserted and abx coverage broadened. Review of Systems Review of Systems: CONST: Negative for fever, body aches and chills. HENT: Negative for neck pain/stiffness, headache, congestion, sore throat, swell ing. EYES: Negative for discharge/pain or vision changes. RESP: Negative for cough/hemoptysis and shortness of breath. CV: Negative chest pain, difficulty breathing, palpitations. ABD: Negative pain, nausea, vomiting. : Negative increase frequency, dysuria, blood in urine or stool. MUSC: Negative for muscle aches, edema. SKIN: Negative rash, lesions/sores. NEURO: Negative headache, dizziness, weakness. Physical Exam Physical Exam: GENERAL APPEARANCE NAD, activity normal for age, well developed/ well nourished, no cyanosis, pallor, or diaphoresis. NGT in place EYES lids/conjunctiva normal. EARS/NOSE/THROAT Mucous membranes moist, nares normal, lips/teeth normal uvula midline without oral pharyngeal erythema, exudate or swelling TMs normal bilaterally. No lymphangitis/lymphedema. HEAD/NECK normocephalic atraumatic, no facial trauma, neck is supple. RESPIRATORY respiratory effort normal, speaks in full sentences, no tripod position, no accessory muscle use. Lungs clear to auscultation without rhonchi, wheezes, rales CARDIAC Regular rate and rhythm, no edema. ABDOMINAL Soft, ND/NT. No evidence of fluid wave. No pulsatile masses on exam, rebound tenderness, Tran sign or pain over Mcburney's point. MUSCLES/EXTREMITIES No abnormal range of motion, no swelling. SKIN Warm, pink and dry. No rashes, dermatoses, petechiae or lesions. NEUROLOGICAL Speech is clear and appropriate. Normal level of consciousness. Gait and coordination are normal. 5/5 strength in all extremities. PSYCH Normal mood and affect. Judgement/competence is appropriate Results & Data Results & Data Vital Signs (Past 12 Hours) Vital Signs Temp Pulse Pulse Resp BP BP BP 10/18/24 07:30 76/44 L 10/18/24 07:30 102 H 20 10/18/24 07:15 73/39 L 10/18/24 07:15 73/39 L 10/18/24 07:06 108 H 29 H 10/18/24 07:00 82/39 L 10/18/24 07:00 82/39 L 10/18/24 06:54 101 H 20 10/18/24 06:52 68/38 L 10/18/24 06:52 68/38 L 10/18/24 06:48 61/42 L 10/18/24 06:46 69/39 L 10/18/24 06:36 113 H 29 H 10/18/24 06:30 102/37 L 10/18/24 06:30 102/37 L 10/18/24 06:30 37.7 C H 102/37 L 10/18/24 06:21 121 H 33 H 10/18/24 02:55 37.8 C H 114 H 18 97/60 L 10/18/24 00:11 103/62 10/18/24 00:00 10/17/24 22:53 37.8 C H 110 H 18 10/17/24 22:52 100/63 10/17/24 21:30 37.2 C 18 129/62 Pulse Ox O2 Del Method O2 Flow Rate FiO2 10/18/24 07:30 10/18/24 07:30 92 Nasal Cannula 4 10/18/24 07:15 10/18/24 07:15 10/18/24 07:06 89 L 10/18/24 07:00 10/18/24 07:00 10/18/24 06:54 91 10/18/24 06:52 10/18/24 06:52 10/18/24 06:48 10/18/24 06:46 10/18/24 06:36 90 Nasal Cannula 4 10/18/24 06:30 10/18/24 06:30 10/18/24 06:30 Nasal Cannula 4 10/18/24 06:21 90 10/18/24 02:55 93 Room Air 10/18/24 00:11 10/18/24 00:00 Room Air 10/17/24 22:53 93 Room Air 10/17/24 22:52 10/17/24 21:30 96 Room Air PG Care Time/CCT Total # of Minutes Spent Total Time Spent with Patient: Total time spent is greater than 50% in coordination of care (as documented) at patient's floor/unit and/or counseling patient: Coding Level of Care Code 64717 SUB INP/OBS CARE MIN Diagnoses Chronic pain G89.29 Chronic pain type: other chronic pain Abdominal pain R10.9 Abscess L02.91 PAD (peripheral artery disease) I73.9 Anemia D64.9 (1) Chronic pain Chronic pain type: other chronic pain Qualified Code(s): G89.29 - Other chronic pain
--- NOTE | 2024-10-18 09:10 | Procedure Note ---
Procedure Note Date of Service October 18, 2024 CENTRAL LINE PROCEDURE NOTE: Procedure: Central Line Placement Provider: Vince Ravi MD Indication: Central Drug Administration, Poor Venous Access, Multiple Lab Draws Necessary, etc. Anesthesia: 5 cc 1% lidocaine Site: Right IJ Verbal consent was obtained from the patient. Due to critical illness she was unable to provide written consent no family immediately available A time-out was completed verifying correct patient, procedure, site, positioning, and implants(s) or special equipment if applicable. Initial attempt in the left subclavian. I was able to access the vein however the wire was unable to be threaded. This persisted when we accessed the left internal jugular vein. The vein was accessed however the wire was unable to be advanced. We then transitioned to the right internal jugular vein. On ultrasound, it was widely patent and compressible. The skin and subcutaneous tissues were anesthetized with 1% lidocaine. The vein was accessed on the initial attempt. Good venous blood return was maintained prior to removal of syringe from introducer needle. Using Seldinger Technique, a guide wire was advanced through the introducer needle without resistance. The introducer needle was removed and ultrasound images were obtained of the guidewire and the vein. A small incision was made in penetrating fashion at the guide wire insertion site utilizing an 11 blade scalpel. The dilator was advanced to the vessel without resistance. The dilator was exchanged for the triple lumen catheter which was advanced into the vessel without resistance. The guide wire was removed intact from the catheter without issue. Claves were placed on each catheter tip with confirmation of good blood flow from each lumen. Each port was easily flushed with sterile saline. The catheter was placed at [] cm and sutured in place. BioPatch was applied to the catheter and a sterile Tegaderm dressing was applied over the catheter with careful attention to sterility. Patient tolerated procedure well. No immediate complications were met. Post procedure x-ray was completed, placement was appropriate and no pneumothorax was noted. [facility] [place] Procedure Codes (Charges) Tubes, Drains, and Vasc Access Procedure 1: Tubes, Drains, and Vasc Access: [id number] Place catheter in vein superior or inferior vena cava Procedure 2: Tubes, Drains, and Vasc Access: [id number] Ultrasound Guidance For Vascular Coding CPT Codes Tubes, Drains, and Vasc Access - Tubes, Drains, and Vasc Access: [id number] Place catheter in vein superior or inferior vena cava ([id number]) Tubes, Drains, and Vasc Access - Tubes, Drains, and Vasc Access: [id number] Ultrasound Guidance For Vascular ([id number]) Additional Codes Date of Service (PG.[email or web address])
[2024-10-18] MEDS ORDERED: STAT IV Infusion **Titration per Protocol STA (09:16)
[2024-10-18] MEDS: fentaNYL citrate PF 100 MCG/2 ML VIAL ONE (09:25)
[2024-10-18] MEDS: MIDODRINE HCL 10 MG TAB PO SCH (09:26)
[2024-10-18] MEDS: LIDOCAINE 1% LOCAL 20 ML VIAL ONE (09:26)
[2024-10-18] MEDS: FLUDROCORTISONE ACETATE 0.1 MG TAB PO SCH (09:26)
[2024-10-18] MEDS: POLYETHYLENE (MIRALAX) 17 GM PACK PO SCH (09:32)
--- NOTE | 2024-10-18 09:34 | XRay Report ---
EXAM: XR chest 1V portable CLINICAL HISTORY: Hypoxia TECHNIQUE: An X-ray image of the chest is obtained in AP projection. COMPARISON: 06/27/2024 CR FINDINGS: Pulmonary Parenchyma: Prominent hilar shadows and bronchovascular markings at both lung cardozo denoting congestive changes. Obliterated both costopherenic recesses, which could suggest bilateral pleural effusion. Bilateral lower lung zones infiltrates are seen. No evidence of consolidation, collapse, or focal opacities. No pulmonary nodules are identified. No evidence of pleural effusion or pleural thickening. NGT is seen in place at the region of the stomach. Heart and Mediastinum: Apparently prominent cardiac shadow in AP view. No mediastinal widening or masses. No hilar or mediastinal lymphadenopathy. Bony Thorax: Bony thorax appears intact without fractures or deformities. Soft Tissues: Soft tissues overlying the chest wall are unremarkable. IMPRESSION: 1. Prominent hilar shadows and bronchovascular markings at both lung cardozo denoting congestive changes. Stable. 2. Obliterated both costopherenic recesses, which could suggest bilateral pleural effusion. Interval new 3. Bilateral lower lung zones infiltrates are seen more at left side. Progressive. 4. NGT is seen in place at the region of the stomach. Interval new Electronically signed by Jorge West 10-18-2024 07:43 AM
--- NOTE | 2024-10-18 09:34 | XRay Report ---
EXAM: XR KUB/Abdomen 1 view CLINICAL HISTORY: NG tube insertion. TECHNIQUE: X-ray images of the abdomen were obtained in supine and upright positions. COMPARISON: 06/26/2023 FINDINGS: Gas Pattern: Still noted gaseous distention of bowel loops. Soft Tissues: NGT was applied with its tip noted in the stomach. Soft tissues of the abdomen appear normal without evidence of masses or calcifications. Still noted clips applied at right hypochondria region. IMPRESSION: 1. NGT was applied with its tip noted in the stomach. 2. No evidence of bowel obstruction or pneumoperitoneum. 3. No interval time changes as compared with a similar study dated in 2022. Electronically signed by Jorge West 10-18-2024 07:34 AM
[2024-10-18] MEDS: ENOXAPARIN INJ 30 MG/0.3 ML SYR SQ SCH (09:51)
[2024-10-18] MEDS: INSULIN ASPART PER UNIT CHARGE SC SCH (11:00)
[2024-10-18] MEDS: 4.5GM EXT INFUSION IV SCH (11:00)
--- NOTE | 2024-10-18 11:00 | XRay Report ---
XR chest 1V portable CLINICAL HISTORY: line placement COMPARISON STUDY: 10/18/2024 FINDINGS: Nasogastric tube tip is off the field of view inferiorly. There is stable mild cardiomegaly without pulmonary vascular congestion. Inspiration is shallow. There is stable stranding opacity in the lung bases with partial obscuration of the diaphragm. No pneumothorax. There is an interval right central catheter with the tip at the cavoatrial junction. IMPRESSION: No pneumothorax. Otherwise as described. ACT 112: Negative or not required by law. Electronically signed by: Anil Gunter M.D. 10/18/2024 10:57 AM
--- NOTE | 2024-10-18 12:52 | Surgery Progress Note ---
Date of Service October 18, 2024 Assessment & Plan (1) Rectosigmoiditis: Plan: agree with IV abx NG in place some bowel function may need more endoscopic eval of rectosigmoid if does not respond to current regimen Admission and Anticipated Discharge Date Admission Date: October 01, 2024 Subjective patient with abdominal pain CT finding with possible partially obstructing rectosigmoid lesion passing stool and flatus NG in place Review of Systems Constitutional: no fever Respiratory: no cough and no dyspnea Cardiovascular: no chest pain Gastrointestinal: + abdominal pain; no nausea Genitourinary: no dysuria Physical Exam Constitutional: WD/WN, vitals as above Respiratory: normal respiratory effort, lungs clear to auscultation Cardiovascular: RRR, no murmur, no edema Gastrointestinal (Abdomen): Inspection/Auscultation: abdomen normal to inspection, + abdomen distended and normal bowel sounds Percussion/Palpation: + abdomen tender and abdomen soft; no guarding and abdomen not rigid Musculoskeletal: Head/Neck/Chest: normocephalic and head atraumatic Results & Data Vital Signs (Past 12 Hours) Vital Signs Temp Pulse Pulse Resp BP BP Pulse Ox 10/18/24 11:03 107 H 19 91 10/18/24 11:00 105/54 L 10/18/24 10:51 108 H 29 H 91 10/18/24 10:48 109 H 24 91 10/18/24 10:45 109/62 10/18/24 10:36 103 H 23 91 10/18/24 10:30 105/56 L 10/18/24 10:30 108 H 28 H 92 10/18/24 10:18 102 H 28 H 91 10/18/24 10:15 95/47 L 10/18/24 10:12 106 H 24 91 10/18/24 10:00 106 H 23 91 10/18/24 09:48 101 H 22 91 10/18/24 09:45 87/52 L 10/18/24 09:30 88/51 L 10/18/24 09:27 99 H 28 H 88 L 10/18/24 09:15 82/53 L 10/18/24 09:15 99 H 29 H 87 L 10/18/24 09:09 98 H 29 H 87 L 10/18/24 09:00 85/49 L 10/18/24 08:57 103 H 34 H 100 03/08/25 08:48 101 H 30 H 91 10/18/24 08:45 84/47 L 10/18/24 08:33 102 H 32 H 91 10/18/24 08:30 88/48 L 10/18/24 08:30 103 H 27 H 91 10/18/24 08:15 85/42 L 10/18/24 08:15 103 H 32 H 90 10/18/24 08:03 106 H 30 H 88 L 10/18/24 08:00 90/51 L 10/18/24 07:54 108 H 36 H 91 10/18/24 07:48 105 H 27 H 90 10/18/24 07:45 85/43 L 10/18/24 07:42 101 H 18 92 10/18/24 07:30 76/44 L 10/18/24 07:30 76/44 L 10/18/24 07:30 102 H 20 92 10/18/24 07:15 73/39 L 10/18/24 07:15 73/39 L 10/18/24 07:06 108 H 29 H 89 L 10/18/24 07:00 82/39 L 10/18/24 07:00 82/39 L 10/18/24 06:54 101 H 20 91 10/18/24 06:52 68/38 L 10/18/24 06:52 68/38 L 10/18/24 06:48 61/42 L 10/18/24 06:46 69/39 L 10/18/24 06:36 113 H 29 H 90 10/18/24 06:30 102/37 L 10/18/24 06:30 102/37 L 10/18/24 06:30 37.7 C H 102/37 L 10/18/24 06:21 121 H 33 H 90 10/18/24 02:55 37.8 C H 114 H 18 97/60 L 93 O2 Del Method O2 Flow Rate FiO2 10/18/24 11:03 Mechanical Vent 40 10/18/24 11:00 10/18/24 10:51 10/18/24 10:48 10/18/24 10:45 10/18/24 10:36 10/18/24 10:30 10/18/24 10:30 10/18/24 10:18 10/18/24 10:15 10/18/24 10:12 10/18/24 10:00 10/18/24 09:48 10/18/24 09:45 10/18/24 09:30 10/18/24 09:27 Nasal Cannula 6 10/18/24 09:15 10/18/24 09:15 10/18/24 09:09 10/18/24 09:00 10/18/24 08:57 10/18/24 08:48 10/18/24 08:45 10/18/24 08:33 10/18/24 08:30 10/18/24 08:30 10/18/24 08:15 10/18/24 08:15 10/18/24 08:03 10/18/24 08:00 10/18/24 07:54 10/18/24 07:48 10/18/24 07:45 10/18/24 07:42 10/18/24 07:30 10/18/24 07:30 10/18/24 07:30 Nasal Cannula 4 10/18/24 07:15 10/18/24 07:15 10/18/24 07:06 10/18/24 07:00 10/18/24 07:00 10/18/24 06:54 10/18/24 06:52 10/18/24 06:52 10/18/24 06:48 10/18/24 06:46 10/18/24 06:36 Nasal Cannula 4 10/18/24 06:30 10/18/24 06:30 10/18/24 06:30 Nasal Cannula 4 10/18/24 06:21 10/18/24 02:55 Room Air Diagnostic Findings Exam(s): CT ABDOMEN + PELVIS Without Contrast EXAM: CT Abdomen and Pelvis Without Intravenous Contrast CLINICAL HISTORY: Abdominal Pain. TECHNIQUE: Axial computed tomography images of the abdomen and pelvis without intravenous contrast. CTDI is 20.15 mGy and DLP is 1051.01 mGy-cm. Automated exposure control was utilized for the study. A dose lowering technique was utilized adhering to the principles of ALARA. COMPARISON: CT abdomen and pelvis 06/02/2024 FINDINGS: Lung bases: Bibasilar airspace opacities could represent atelectasis, however cannot exclude atypical infection or aspiration given the appearance. ABDOMEN: Liver: Unremarkable. Gallbladder and bile ducts: Cholecystectomy. No ductal dilation. Pancreas: Unremarkable. No ductal dilation. Spleen: Unremarkable. No splenomegaly. Adrenals: Unremarkable. No mass. Kidneys and ureters: Nonobstructing punctate bilateral renal calculi. No hydronephrosis of either kidney. Stomach and bowel: The stomach is distended with significant debris, question thickening of the wall the distal stomach. Cannot exclude gastric outlet obstruction or bezoar. Fluid distended small bowel without transition point to suggest obstruction. Marked nonspecific thickening of the wall the rectosigmoid colon. Significant stool throughout the colon is concerning for constipation. PELVIS: Appendix: No findings to suggest acute appendicitis. Bladder: Unremarkable. No stones. Reproductive: Unremarkable as visualized. ABDOMEN and PELVIS: Intraperitoneal space: Mild free fluid in the abdomen and pelvis is nonspecific. No free air. Bones/joints: There are degenerative changes of the spine. No acute fracture. Grade 1 anterolisthesis of L4 on L5. Posterior fusion of L5 and S1 are noted. No dislocation. Soft tissues: Unremarkable. Vasculature: Mild atherosclerosis. No abdominal aortic aneurysm. Lymph nodes: Unremarkable. No enlarged lymph nodes. IMPRESSION: 1. Marked nonspecific thickening of the wall the rectosigmoid colon. This could be infectious, inflammatory or neoplastic. There is significant stool throughout the remainder of the colon this could represent constipation, however cannot exclude a degree of low-grade colonic obstruction. 2. Fluid distended small bowel without transition point to suggest obstruction. This could represent enteritis or ileus. 3. The stomach is distended with significant debris, question thickening of the wall the distal stomach. Cannot exclude gastric outlet obstruction or bezoar. 4. Nonobstructing punctate bilateral renal calculi. No hydronephrosis of either kidney. 5. Mild free fluid in the abdomen and pelvis is nonspecific. 6. Bibasilar airspace opacities could represent atelectasis, however cannot exclude atypical infection or aspiration given the appearance.
[2024-10-18] MEDS: DAPTOmycin 350 MG in SYRINGE 0 ML IV SCH (15:10)
[2024-10-18 17:09] LABS: Appearance Urine Cloudy (Clear); Bacteria Urine Automated 1+ (None Seen); Bilirubin Urine Negative (Negative); Blood Urine 2+ (Negative); Color Urine Yellow; Glucose Urine UA Negative (Negative); Ketones Urine Negative (Negative); Leukocyte Esterase Urine 1+ (Negative); Nitrite Urine Negative (Negative); Protein Urine 1+ (Negative); Specific Gravity Urine 1.018 (1.000-1.030); Urobilinogen Urine Negative (Negative); WBC Urine Automated 0-5 /hpf (0-5)
[2024-10-18] MEDS: ICU ELECTROLYTE REPLACEMENT PROTOCOL SCH (18:12)
[2024-10-19] MEDS: PHENYLEPHRINE/NSS 25 MG/250 ML BAG IV SCH (00:12)
[2024-10-19] MEDS: LACTATED RINGER'S 1,000 ML IV SCH (00:33)
[2024-10-19 05:18] LABS: Hematocrit (blood only) 25.9 % (37.0-47.0); Hemoglobin 8.2 g/dl (12.0-16.0); Mean Corpuscular Hemoglobin 23.8 pg (25.0-34.0); Mean Corpuscular Hgb Conc 31.7 g/dL (32.0-36.0); Mean Corpuscular Volume 75.3 fL (80.0-100.0); Platelet Count 165 K/uL (130-400); RDW Coefficient of Variation 19.1 % (11.5-14.5); RDW Standard Deviation 52.3 fL (36.4-46.3); Red Blood Count 3.44 M/uL (4.20-5.40); White Blood Count 7.47 K/ul (4.8-10.8)
[2024-10-19 05:39] LABS: Echinocytes 1+; Eosinophils # (auto) 0.01 K/uL (0.00-0.50); Eosinophils % (auto) 0.1 %; Immature Granulocytes # (auto) 0.08 K/uL (0.01-0.20); Immature Granulocytes % (auto) 1.1 %; Lymphocytes # (auto) 0.29 K/uL (1.20-3.40); Lymphocytes % (auto) 3.9 %; Monocytes # (auto) 0.44 K/uL (0.11-0.59); Monocytes % (auto) 5.9 %; Neutrophils # (auto) 6.65 K/uL (1.40-6.50); Polychromasia 1+
[2024-10-19 05:54] LABS: BUN Creatinine Ratio 47.1 (10-20); Calcium 7.8 mg/dl (8.6-10.3); Magnesium 1.8 mg/dl (1.7-2.4); Phosphorus 3.3 mg/dl (2.5-4.9); Potassium 3.5 mmol/L (3.5-5.1)
[2024-10-19] MEDS: POTASSIUM CHLORIDE / WTR 20 MEQ/100 ML PLCT IV SCH (07:34)
[2024-10-19] MEDS: MAGNESIUM SULFATE / D5W 1 GM/100 ML BAG IV SCH (07:34)
--- NOTE | 2024-10-19 08:16 | Gastroenterology Progress Note ---
Date of Service October 19, 2024 Assessment & Plan (1) Abdominal pain: Plan: Suspect ileus due to narcotics. Clinically better over the last 24 hours since NG tube placement. Having frequent bowel movements now. Recommended rotating patient from left to right side to help relieve her ileus. Ordered C. difficile toxin gene. Has a past history of C. difficile. Continue to hold narcotics. Recommend repeating obstruction series and ordering a mild sedative for her such as Ativan for comfort. (2) Heme positive stool: Plan: No overt bleeding hemodynamically stable. Continue to monitor hemoglobin. Endoscopic evaluation on hold for now. Admission and Anticipated Discharge Date Admission Date: October 01, 2024 Subjective Still with abdominal distention and discomfort. Mild shortness of breath no chest pain. Physical Exam Physical Exam: No acute distress Respiratory rate regular Cardiac rhythm regular Abdomen distended bowel sounds hypoactive generalized mild tenderness no rebound no guarding Results & Data Results & Data Vital Signs (Past 12 Hours) Vital Signs Temp Pulse Resp BP Pulse Ox O2 Del Method O2 Flow Rate 10/19/24 01:50 112 H 10/19/24 01:06 105 H 21 94 Oxymask 10/19/24 01:00 110/55 L 10/19/24 00:51 106 H 29 H 94 Oxymask 10/19/24 00:45 104 H 30 H 94 10/19/24 00:00 110 H 27 H 10/19/24 00:00 37.5 C 130/62 10/19/24 00:00 130/62 10/19/24 00:00 130/62 10/18/24 23:30 110 H 25 H 93 Oxymask 10/18/24 23:03 116 H 26 H 92 10/18/24 23:00 131/57 L 10/18/24 23:00 131/57 L 10/18/24 22:57 118 H 22 90 10/18/24 22:33 114 H 29 H 90 10/18/24 22:18 165/66 H 10/18/24 22:18 165/66 H 10/18/24 22:06 122 H 29 H 90 10/18/24 22:00 121 H 33 H 90 10/18/24 21:30 121 H 16 91 10/18/24 21:24 115 H 26 H 92 10/18/24 21:00 145/60 H 10/18/24 20:57 109 H 16 93 10/18/24 20:39 105 H 15 94 Oxymask 10/18/24 20:30 Oxymask 4 10/18/24 20:03 109 H 18 91 10/18/24 20:00 104/59 L 10/18/24 20:00 104/59 L 10/18/24 20:00 37.2 C 104/59 L 10/18/24 19:36 113 H 28 H 10/18/24 19:15 37.1 C 110 H 31 H 92 Oxymask 5 FiO2 10/19/24 01:50 10/19/24 01:06 4 10/19/24 01:00 10/19/24 00:51 4 10/19/24 00:45 10/19/24 00:00 10/19/24 00:00 10/19/24 00:00 10/19/24 00:00 10/18/24 23:30 40 10/18/24 23:03 10/18/24 23:00 10/18/24 23:00 10/18/24 22:57 10/18/24 22:33 10/18/24 22:18 10/18/24 22:18 10/18/24 22:06 10/18/24 22:00 10/18/24 21:30 10/18/24 21:24 10/18/24 21:00 10/18/24 20:57 10/18/24 20:39 4 10/18/24 20:30 10/18/24 20:03 10/18/24 20:00 10/18/24 20:00 10/18/24 20:00 10/18/24 19:36 10/18/24 19:15 Laboratory Results Laboratory Results - last 48 hr 10/17/24 10/17/24 10/17/24 08:02 08:45 11:33 WBC RBC Hgb Hct MCV MCH MCHC RDW Std Deviation RDW Coeff of Maria [place] Plt Count MPV Immature Gran % (Auto) Neut % (Auto) Lymph % (Auto) Iron % (Auto) Eos % (Auto) Baso % (Auto) Neut # (Auto) Lymph # (Auto) Iron # (Auto) Eos # (Auto) Baso # (Auto) Immature Gran # (Auto) Polychromasia Echinocytes Sodium Potassium Chloride Carbon Dioxide Anion Gap BUN Creatinine Est Cr Clr Drug Dosing eGFR BUN/Creatinine Ratio Glucose POC Glucose 122 H 91 Lactate Calcium Phosphorus Magnesium Total Bilirubin AST ALT Alkaline Phosphatase Total Protein Albumin Globulin Albumin/Globulin Ratio Procalcitonin Random Cortisol Urine Color Urine Appearance Urine pH Ur Specific [place] Urine Protein Urine Glucose (UA) Urine Ketones Urine Blood Urine Nitrite Urine Bilirubin Urine Urobilinogen Ur Leukocyte Esterase Urine WBC (Auto) Urine RBC (Auto) U Hyaline Cast (Auto) U Epithel Cells (Auto) Urine Bacteria (Auto) Nasal Screen MRSA (PCR) Stool Occult Bld Scrn Stl C. diff Tox B Gene Negative Cdiff Gene 10/17/24 10/17/24 10/17/24 14:01 14:34 16:49 WBC 14.60 H RBC 3.93 L Hgb 9.4 L Hct 30.2 L MCV 76.8 L MCH 23.9 L MCHC 31.1 L RDW Std Deviation 52.0 H RDW Coeff of Maria [place] 18.7 H Plt Count 211 MPV 10.7 Immature Gran % (Auto) Neut % (Auto) Lymph % (Auto) Iron % (Auto) Eos % (Auto) Baso % (Auto) Neut # (Auto) Lymph # (Auto) Iron # (Auto) Eos # (Auto) Baso # (Auto) Immature Gran # (Auto) Polychromasia Echinocytes Sodium Potassium Chloride Carbon Dioxide Anion Gap BUN Creatinine Est Cr Clr Drug Dosing eGFR BUN/Creatinine Ratio Glucose POC Glucose 110 H Lactate Calcium Phosphorus Magnesium Total Bilirubin AST ALT Alkaline Phosphatase Total Protein Albumin Globulin Albumin/Globulin Ratio Procalcitonin Random Cortisol Urine Color Urine Appearance Urine pH Ur Specific [place] Urine Protein Urine Glucose (UA) Urine Ketones Urine Blood Urine Nitrite Urine Bilirubin Urine Urobilinogen Ur Leukocyte Esterase Urine WBC (Auto) Urine RBC (Auto) U Hyaline Cast (Auto) U Epithel Cells (Auto) Urine Bacteria (Auto) Nasal Screen MRSA (PCR) Stool Occult Bld Scrn Positive A Stl C. diff Tox B Gene 10/17/24 10/17/24 10/17/24 20:58 21:32 21:43 WBC RBC Hgb Hct MCV MCH MCHC RDW Std Deviation RDW Coeff of [place] Plt Count MPV Immature Gran % (Auto) Neut % (Auto) Lymph % (Auto) Iron % (Auto) Eos % (Auto) Baso % (Auto) Neut # (Auto) Lymph # (Auto) Iron # (Auto) Eos # (Auto) Baso # (Auto) Immature Gran # (Auto) Polychromasia Echinocytes Sodium 131 L Potassium 5.1 Chloride 102 Carbon Dioxide 19 L Anion Gap 10 BUN 62 H Creatinine 1.88 H Est Cr Clr Drug Dosing 25.2 eGFR 30.24 BUN/Creatinine Ratio 33.0 H Glucose 88 POC Glucose 72 67 L* Lactate Calcium 8.2 L Phosphorus Magnesium 1.6 L Total Bilirubin 0.6 AST 49 H ALT 21 Alkaline Phosphatase 361 H Total Protein 5.3 L Albumin 3.1 L Globulin 2.2 L Albumin/Globulin Ratio 1.4 Procalcitonin Random Cortisol Urine Color Urine Appearance Urine pH Ur Specific [place] Urine Protein Urine Glucose (UA) Urine Ketones Urine Blood Urine Nitrite Urine Bilirubin Urine Urobilinogen Ur Leukocyte Esterase Urine WBC (Auto) Urine RBC (Auto) U Hyaline Cast (Auto) U Epithel Cells (Auto) Urine Bacteria (Auto) Nasal Screen MRSA (PCR) Stool Occult Bld Scrn Stl C. diff Tox B Gene 10/17/24 10/17/24 10/18/24 22:29 23:37 04:15 WBC RBC Hgb Hct MCV MCH MCHC RDW Std Deviation RDW Coeff of [place] Plt Count MPV Immature Gran % (Auto) Neut % (Auto) Lymph % (Auto) Iron % (Auto) Eos % (Auto) Baso % (Auto) Neut # (Auto) Lymph # (Auto) Iron # (Auto) Eos # (Auto) Baso # (Auto) Immature Gran # (Auto) Polychromasia Echinocytes Sodium Potassium Chloride Carbon Dioxide Anion Gap BUN Creatinine Est Cr Clr Drug Dosing eGFR BUN/Creatinine Ratio Glucose POC Glucose 67 L* 118 H Lactate 1.9 Calcium Phosphorus Magnesium Total Bilirubin AST ALT Alkaline Phosphatase Total Protein Albumin Globulin Albumin/Globulin Ratio Procalcitonin Random Cortisol Urine Color Urine Appearance Urine pH Ur Specific [place] Urine Protein Urine Glucose (UA) Urine Ketones Urine Blood Urine Nitrite Urine Bilirubin Urine Urobilinogen Ur Leukocyte Esterase Urine WBC (Auto) Urine RBC (Auto) U Hyaline Cast (Auto) U Epithel Cells (Auto) Urine Bacteria (Auto) Nasal Screen MRSA (PCR) Stool Occult Bld Scrn Stl C. diff Tox B Gene 10/18/24 10/18/24 10/18/24 05:04 07:55 08:10 WBC 8.65 RBC 3.93 L Hgb 9.2 L Hct 29.5 L MCV 75.1 L MCH 23.4 L MCHC 31.2 L RDW Std Deviation 51.3 H RDW Coeff of Maria [place] Carm[place] 18.8 H Plt Count 184 MPV 9.8 Immature Gran % (Auto) 0.5 Neut % (Auto) 88.0 Lymph % (Auto) 5.3 Iron % (Auto) 6.1 Eos % (Auto) 0.0 Baso % (Auto) 0.1 Neut # (Auto) 7.61 H Lymph # (Auto) 0.46 L Iron # (Auto) 0.53 Eos # (Auto) 0.00 Baso # (Auto) 0.01 Immature Gran # (Auto) 0.04 Polychromasia Echinocytes Sodium 131 L Potassium 4.6 Chloride 102 Carbon Dioxide 23 Anion Gap 6 BUN 58 H Creatinine 1.62 H Est Cr Clr Drug Dosing 32.7 eGFR 36.15 BUN/Creatinine Ratio 35.8 H Glucose 94 POC Glucose Lactate 2.5 H* Calcium 8.2 L Phosphorus Magnesium Total Bilirubin 0.8 AST 54 H ALT 21 Alkaline Phosphatase 376 H Total Protein 5.6 L Albumin 3.3 L Globulin 2.3 L Albumin/Globulin Ratio 1.4 Procalcitonin 13.10 H Random Cortisol 43.79 Urine Color Urine Appearance Urine pH Ur Specific [place] Urine Protein Urine Glucose (UA) Urine Ketones Urine Blood Urine Nitrite Urine Bilirubin Urine Urobilinogen Ur Leukocyte Esterase Urine WBC (Auto) Urine RBC (Auto) U Hyaline Cast (Auto) U Epithel Cells (Auto) Urine Bacteria (Auto) Nasal Screen MRSA (PCR) Stool Occult Bld Scrn Stl C. diff Tox B Gene 10/18/24 10/18/24 10/18/24 09:44 10:52 11:37 WBC RBC Hgb Hct MCV MCH MCHC RDW Std Deviation RDW Coeff of Maria [place] Plt Count MPV Immature Gran % (Auto) Neut % (Auto) Lymph % (Auto) Iron % (Auto) Eos % (Auto) Baso % (Auto) Neut # (Auto) Lymph # (Auto) Iron # (Auto) Eos # (Auto) Baso # (Auto) Immature Gran # (Auto) Polychromasia Echinocytes Sodium Potassium Chloride Carbon Dioxide Anion Gap BUN Creatinine Est Cr Clr Drug Dosing eGFR BUN/Creatinine Ratio Glucose POC Glucose 92 Lactate 1.5 1.1 Calcium Phosphorus Magnesium Total Bilirubin AST ALT Alkaline Phosphatase Total Protein Albumin Globulin Albumin/Globulin Ratio Procalcitonin Random Cortisol Urine Color Urine Appearance Urine pH Ur Specific [place] Urine Protein Urine Glucose (UA) Urine Ketones Urine Blood Urine Nitrite Urine Bilirubin Urine Urobilinogen Ur Leukocyte Esterase Urine WBC (Auto) Urine RBC (Auto) U Hyaline Cast (Auto) U Epithel Cells (Auto) Urine Bacteria (Auto) Nasal Screen MRSA (PCR) Stool Occult Bld Scrn Stl C. diff Tox B Gene 10/18/24 10/18/24 10/18/24 16:30 17:58 Unknown WBC RBC Hgb Hct MCV MCH MCHC RDW Std Deviation RDW Coeff of Maria [place] Plt Count MPV Immature Gran % (Auto) Neut % (Auto) Lymph % (Auto) Iron % (Auto) Eos % (Auto) Baso % (Auto) Neut # (Auto) Lymph # (Auto) Iron # (Auto) Eos # (Auto) Baso # (Auto) Immature Gran # (Auto) Polychromasia Echinocytes Sodium Potassium Chloride Carbon Dioxide Anion Gap BUN Creatinine Est Cr Clr Drug Dosing eGFR BUN/Creatinine Ratio Glucose POC Glucose 84 Lactate Calcium Phosphorus Magnesium Total Bilirubin AST ALT Alkaline Phosphatase Total Protein Albumin Globulin Albumin/Globulin Ratio Procalcitonin Random Cortisol Urine Color Yellow Urine Appearance Cloudy A Urine pH 5.0 Ur Specific [place] 1.018 Urine Protein 1+ H Urine Glucose (UA) Negative Urine Ketones Negative Urine Blood 2+ H Urine Nitrite Negative Urine Bilirubin Negative Urine Urobilinogen Negative Ur Leukocyte Esterase 1+ H Urine WBC (Auto) 0-5 Urine RBC (Auto) 11-20 H U Hyaline Cast (Auto) 6-10 H U Epithel Cells (Auto) 3-5 H Urine Bacteria (Auto) 1+ H Nasal Screen MRSA (PCR) Negative Stool Occult Bld Scrn Stl C. diff Tox B Gene 10/19/24 10/19/24 10/19/24 00:05 05:00 05:10 WBC 7.47 RBC 3.44 L Hgb 8.2 L Hct 25.9 L MCV 75.3 L MCH 23.8 L MCHC 31.7 L RDW Std Deviation 52.3 H RDW Coeff of Maria Del Carmen 19.1 H Plt Count 165 MPV 10.0 Immature Gran % (Auto) 1.1 Neut % (Auto) 89.0 Lymph % (Auto) 3.9 Iron % (Auto) 5.9 Eos % (Auto) 0.1 Baso % (Auto) 0.0 Neut # (Auto) 6.65 H Lymph # (Auto) 0.29 L Iron # (Auto) 0.44 Eos # (Auto) 0.01 Baso # (Auto) 0.00 Immature Gran # (Auto) 0.08 Polychromasia 1+ Echinocytes 1+ Sodium 136 Potassium 3.5 D Chloride 109 H Carbon Dioxide 23 Anion Gap 4 BUN 32 H D Creatinine 0.68 D Est Cr Clr Drug Dosing 78.0 eGFR 99.64 BUN/Creatinine Ratio 47.1 H Glucose 94 POC Glucose 86 93 Lactate Calcium 7.8 L Phosphorus 3.3 Magnesium 1.8 Total Bilirubin AST ALT Alkaline Phosphatase Total Protein Albumin Globulin Albumin/Globulin Ratio Procalcitonin Random Cortisol Urine Color Urine Appearance Urine pH Ur Specific [place] Urine Protein Urine Glucose (UA) Urine Ketones Urine Blood Urine Nitrite Urine Bilirubin Urine Urobilinogen Ur Leukocyte Esterase Urine WBC (Auto) Urine RBC (Auto) U Hyaline Cast (Auto) U Epithel Cells (Auto) Urine Bacteria (Auto) Nasal Screen MRSA (PCR) Stool Occult Bld Scrn Stl C. diff Tox B Gene PG Care Time/CCT Total # of Minutes Spent Total Time Spent with Patient: Total time spent is greater than 50% in coordination of care (as documented) at patient's floor/unit and/or counseling patient: Coding Level of Care Code 58165 SUB INP/OBS CARE 3/50MIN Diagnoses Abdominal pain R10.9 Heme positive stool R19.5
--- NOTE | 2024-10-19 08:52 | Critical Care Progress Note ---
Date of Service October 19, 2024 Assessment & Plan (1) Rectosigmoiditis: (2) SRIKANTH (acute kidney injury): (3) Sepsis: (4) Chronic generalized pain: (5) Elevated lactic acid level: Plan Impression: 59-year-old female with prolonged hospitalization transferred to the ICU due to concern about lactic acidosis, hypotension, and intra-abdominal pathology. She has rectosigmoiditis and is being followed by GI and general surgery. There is initial concern that she would require pressor agents. A central line was placed. She responded to crystalloid resuscitation and never required pressors. She is actually hypertensive at this point in time. Recommendations: 1. Rectosigmoiditis with possible bowel obstruction: Check KUB today. Continued follow-up with GI and general surgery recommended. Currently on Levaquin and daptomycin. Defer antibiotics to the primary admitting service and infectious disease. She did have a questionable lymphadenitis as well. Continue KUB. She is receiving Ativan as a sedative agent. 2. Lactic acidosis: Resolved. 3. Chronic pain issues: Management per primary service. 4. Hypotension currently resolved. Now on the hypertensive side. Will start clonidine patch as this may offer her some sedative benefits as well and treat her tachycardia and hypertension. 5. Anemia: Stable. No evidence of acute blood loss. Continue to trend. Activity as tolerated. The patient's critical care issues have resolved. She can transfer back to the hospitalist service. Critical care services will sign off. Feel free to contact us with questions or concerns Admission and Anticipated Discharge Date Admission Date: October 01, 2024 Subjective Patient seen and examined. EMR reviewed. Discussed with critical care [facility] as well as with bedside critical care nurse and on multidisciplinary rounds. Reviewed with GI consultants. Patient is uncomfortable with the NG tube. She states she is passing gas. She continues to have abdominal pain more prominent within the left lower quadrant. She is not significantly distended. Bowel sounds are present. She denies any fevers, chills, or night sweats. She is alert and oriented Review of Systems Review of Systems: All systems reviewed & are unremarkable except as noted in Subjective Physical Exam Constitutional: WD/WN, vitals as above Respiratory: normal respiratory effort, lungs clear to auscultation Cardiovascular: RRR, no murmur, no edema Gastrointestinal (Abdomen): Inspection/Auscultation: abdomen normal to inspection, + abdomen distended and normal bowel sounds Percussion/Palpation: + abdomen tender and abdomen soft; no guarding and abdomen not rigid Musculoskeletal: Head/Neck/Chest: normocephalic and head atraumatic Results & Data Results & Data Vital Signs (Past 12 Hours) Vital Signs Temp Pulse Resp BP Pulse Ox O2 Del Method O2 Flow Rate 10/19/24 08:49 36.6 C Oxymask 4 10/19/24 08:30 105 H 10/19/24 08:12 111 H 20 89 L 10/19/24 08:02 168/79 H 10/19/24 07:57 114 H 27 H 91 10/19/24 07:01 99/42 L 10/19/24 07:01 99/42 L 10/19/24 07:00 101 H 18 93 10/19/24 01:50 112 H 10/19/24 01:06 105 H 21 94 Oxymask 10/19/24 01:00 110/55 L 10/19/24 00:51 106 H 29 H 94 Oxymask 10/19/24 00:45 104 H 30 H 94 10/19/24 00:00 110 H 27 H 10/19/24 00:00 37.5 C 130/62 10/19/24 00:00 130/62 10/19/24 00:00 130/62 10/18/24 23:30 110 H 25 H 93 Oxymask 10/18/24 23:03 116 H 26 H 92 10/18/24 23:00 131/57 L 10/18/24 23:00 131/57 L 10/18/24 22:57 118 H 22 90 10/18/24 22:33 114 H 29 H 90 10/18/24 22:18 165/66 H 10/18/24 22:18 165/66 H 10/18/24 22:06 122 H 29 H 90 10/18/24 22:00 121 H 33 H 90 10/18/24 21:30 121 H 16 91 10/18/24 21:24 115 H 26 H 92 10/18/24 21:00 145/60 H 10/18/24 20:57 109 H 16 93 10/18/24 20:39 105 H 15 94 Oxymask 10/18/24 20:30 Oxymask 4 10/18/24 20:03 109 H 18 91 03/08/25 20:00 104/59 L 10/18/24 20:00 104/59 L 10/18/24 20:00 37.2 C 104/59 L FiO2 10/19/24 08:49 10/19/24 08:30 10/19/24 08:12 10/19/24 08:02 10/19/24 07:57 10/19/24 07:01 10/19/24 07:01 10/19/24 07:00 10/19/24 01:50 10/19/24 01:06 4 10/19/24 01:00 10/19/24 00:51 4 10/19/24 00:45 10/19/24 00:00 10/19/24 00:00 10/19/24 00:00 10/19/24 00:00 10/18/24 23:30 40 10/18/24 23:03 10/18/24 23:00 10/18/24 23:00 10/18/24 22:57 10/18/24 22:33 10/18/24 22:18 10/18/24 22:18 10/18/24 22:06 10/18/24 22:00 10/18/24 21:30 10/18/24 21:24 10/18/24 21:00 10/18/24 20:57 10/18/24 20:39 4 10/18/24 20:30 10/18/24 20:03 10/18/24 20:00 10/18/24 20:00 10/18/24 20:00 Critical Care Results & Data Vital Signs (Past 12 Hours) Vital Signs Temp Pulse Resp BP Pulse Ox Pulse Ox O2 Del Method 10/19/24 08:52 93 10/19/24 08:49 36.6 C Oxymask 10/19/24 08:30 105 H 10/19/24 08:12 111 H 20 89 L 10/19/24 08:02 168/79 H 10/19/24 07:57 114 H 27 H 91 10/19/24 07:01 99/42 L 10/19/24 07:01 99/42 L 10/19/24 07:00 101 H 18 93 10/19/24 01:50 112 H 10/19/24 01:06 105 H 21 94 Oxymask 10/19/24 01:00 110/55 L 10/19/24 00:51 106 H 29 H 94 Oxymask 10/19/24 00:45 104 H 30 H 94 10/19/24 00:00 110 H 27 H 10/19/24 00:00 37.5 C 130/62 10/19/24 00:00 130/62 10/19/24 00:00 130/62 10/18/24 23:30 110 H 25 H 93 Oxymask 10/18/24 23:03 116 H 26 H 92 10/18/24 23:00 131/57 L 10/18/24 23:00 131/57 L 10/18/24 22:57 118 H 22 90 10/18/24 22:33 114 H 29 H 90 10/18/24 22:18 165/66 H 10/18/24 22:18 165/66 H 10/18/24 22:06 122 H 29 H 90 10/18/24 22:00 121 H 33 H 90 10/18/24 21:30 121 H 16 91 10/18/24 21:24 115 H 26 H 92 10/18/24 21:00 145/60 H 10/18/24 20:57 109 H 16 93 10/18/24 20:39 105 H 15 94 Oxymask 10/18/24 20:30 Oxymask 10/18/24 20:03 109 H 18 91 10/18/24 20:00 104/59 L 10/18/24 20:00 104/59 L 10/18/24 20:00 37.2 C 104/59 L O2 Del Method O2 Flow Rate O2 Flow Rate FiO2 10/19/24 08:52 Nasal Cannula 4 10/19/24 08:49 4 10/19/24 08:30 10/19/24 08:12 10/19/24 08:02 10/19/24 07:57 10/19/24 07:01 10/19/24 07:01 10/19/24 07:00 10/19/24 01:50 10/19/24 01:06 4 10/19/24 01:00 10/19/24 00:51 4 10/19/24 00:45 10/19/24 00:00 10/19/24 00:00 10/19/24 00:00 10/19/24 00:00 10/18/24 23:30 40 10/18/24 23:03 10/18/24 23:00 10/18/24 23:00 10/18/24 22:57 10/18/24 22:33 10/18/24 22:18 10/18/24 22:18 10/18/24 22:06 10/18/24 22:00 10/18/24 21:30 10/18/24 21:24 10/18/24 21:00 10/18/24 20:57 10/18/24 20:39 4 10/18/24 20:30 4 10/18/24 20:03 10/18/24 20:00 10/18/24 20:00 10/18/24 20:00 Lab & Micro Results (Past 24 Hours) RBC 3.44 M/uL (4.20-5.40) L 10/19/24 WBC 7.47 K/ul (4.8-10.8) 10/19/24 Hgb 8.2 g/dl (12.0-16.0) L 10/19/24 Hct 25.9 % (37.0-47.0) L 10/19/24 MCV 75.3 fL (80.0-100.0) L 10/19/24 MCH 23.8 pg (25.0-34.0) L 10/19/24 MCHC 31.7 g/dL (32.0-36.0) L 10/19/24 RDW Standard Deviation 52.3 fL (36.4-46.3) H 10/19/24 RDW Coefficient of Variation 19.1 % (11.5-14.5) H 10/19/24 Plt Count 165 K/uL (130-400) 10/19/24 MPV 10.0 fL (9.4-12.4) 10/19/24 Neutrophils (%) (Auto) 89.0 % 10/19/24 Lymphocytes (%) (Auto) 3.9 % 10/19/24 Monocytes # (Auto) 0.44 K/uL (0.11-0.59) 10/19/24 Eosinophils # (Auto) 0.01 K/uL (0.00-0.50) 10/19/24 Immature Granulocyte % (Auto) 1.1 % 10/19/24 Neutrophils # (Auto) 6.65 K/uL (1.40-6.50) H 10/19/24 Lymphocytes # (Auto) 0.29 K/uL (1.20-3.40) L 10/19/24 Monocytes # (Auto) 0.44 K/uL (0.11-0.59) 10/19/24 Eosinophils # (Auto) 0.01 K/uL (0.00-0.50) 10/19/24 Basophils # (Auto) 0.00 K/uL (0.00-0.20) 10/19/24 Immature Granulocyte # (Auto) 0.08 K/uL (0.01-0.20) 5 Polychromasia 1+ 10/19/24 Echinocytes 1+ 10/19/24 Na 136 mmol/L (136-145) 10/19/24 K 3.5 mmol/L (3.5-5.1) 10/19/24 Cl 109 mmol/L (98-107) H 10/19/24 CO2 23 mmol/L (21-32) 10/19/24 Anion Gap 4 (3-11) 10/19/24 BUN 32 mg/dl (6-23) H 10/19/24 Creatinine 0.68 mg/dl (0.6-1.2) 10/19/24 BUN/Creatinine Ratio 47.1 (10-20) H 10/19/24 Glu 94 mg/dl (70-99(Fasting)) 10/19/24 Ca 7.8 mg/dl (8.6-10.3) L 10/19/24 Phosphorus Level 3.3 mg/dl (2.5-4.9) 10/19/24 Mg 1.8 mg/dl (1.7-2.4) 10/19/24 05:00 Calcium Level 7.8 mg/dl (8.6-10.3) L 10/19/24 05:00 Microbiology 10/18/24 07:55 Aerobic Blood Culture - Preliminary Blood Diagnostic Findings (Past 24 Hours) KUB X-Ray 10/18/24 06:04 EXAM: XR KUB/Abdomen 1 view CLINICAL HISTORY: NG tube insertion. TECHNIQUE: X-ray images of the abdomen were obtained in supine and upright positions. COMPARISON: 06/26/2023 FINDINGS: Gas Pattern: Still noted gaseous distention of bowel loops. Soft Tissues: NGT was applied with its tip noted in the stomach. Soft tissues of the abdomen appear normal without evidence of masses or calcifications. Still noted clips applied at right hypochondria region. IMPRESSION: 1. NGT was applied with its tip noted in the stomach. 2. No evidence of bowel obstruction or pneumoperitoneum. 3. No interval time changes as compared with a similar study dated in 2022. Electronically signed by Jorge West 10-18-2024 07:34 AM Chest X-Ray 10/18/24 06:34 EXAM: XR chest 1V portable CLINICAL HISTORY: Hypoxia TECHNIQUE: An X-ray image of the chest is obtained in AP projection. COMPARISON: 06/27/2024 CR FINDINGS: Pulmonary Parenchyma: Prominent hilar shadows and bronchovascular markings at both lung cardozo denoting congestive changes. Obliterated both costopherenic recesses, which could suggest bilateral pleural effusion. Bilateral lower lung zones infiltrates are seen. No evidence of consolidation, collapse, or focal opacities. No pulmonary nodules are identified. No evidence of pleural effusion or pleural thickening. NGT is seen in place at the region of the stomach. Heart and Mediastinum: Apparently prominent cardiac shadow in AP view. No mediastinal widening or masses. No hilar or mediastinal lymphadenopathy. Bony Thorax: Bony thorax appears intact without fractures or deformities. Soft Tissues: Soft tissues overlying the chest wall are unremarkable. IMPRESSION: 1. Prominent hilar shadows and bronchovascular markings at both lung cardozo denoting congestive changes. Stable. 2. Obliterated both costopherenic recesses, which could suggest bilateral pleural effusion. Interval new 3. Bilateral lower lung zones infiltrates are seen more at left side. Progressive. 4. NGT is seen in place at the region of the stomach. Interval new Electronically signed by Jorge West 10-18-2024 07:43 AM Chest X-Ray 10/18/24 09:09 XR chest 1V portable CLINICAL HISTORY: line placement COMPARISON STUDY: 10/18/2024 FINDINGS: Nasogastric tube tip is off the field of view inferiorly. There is stable mild cardiomegaly without pulmonary vascular congestion. Inspiration is shallow. There is stable stranding opacity in the lung bases with partial obscuration of the diaphragm. No pneumothorax. There is an interval right central catheter with the tip at the cavoatrial junction. IMPRESSION: No pneumothorax. Otherwise as described. ACT 112: Negative or not required by law. Electronically signed by: Anil Gunter M.D. 10/18/2024 10:57 AM I & O Totals 24 Hours 10/18/24 10/19/24 10/20/24 05:59 06:59 06:59 Intake Total Output Total Balance - / -1 Cumulative 10/01/24 11:33 thru 10/19/24 08:50 Intake Total 68073.517 Output Total 530 Balance 89160.517 RT Ventilator Mngmt (Last Documented) Ventilator Ordered Settings Respiratory Rate 20 10/19/24 08:12 Fraction of Inspired Oxygen 4 10/19/24 0 1:06 Ventilator - PT Measurements Respiratory Rate 20 Coding Level of Care Code 74674 SUB INP/OBS CARE 3/50MIN Diagnoses Rectosigmoiditis K63.89 SRIKANTH (acute kidney injury) N17.9 Sepsis A41.9 Sepsis acute organ dysfunction status: unspecified Sepsis type: sepsis due to unspecified organism Chronic generalized pain R52; G89.29 Elevated lactic acid level R79.89 (3) Sepsis Sepsis acute organ dysfunction status: unspecified Sepsis type: sepsis due to unspecified organism Qualified Code(s): A41.9 - Sepsis, unspecified organism
--- NOTE | 2024-10-19 09:04 | XRay Report ---
KUB HISTORY: bowel obstruction COMPARISON STUDY: 10/18/2024 FINDINGS: Nasogastric tube tip is in the mid body of the stomach. There is mild colonic distention an d there are multiple mildly distended small bowel loops at the central abdomen and pelvis, stable. No gross free air. There is moderate retained stool. IMPRESSION: Stable mild bowel distention. ACT 112: Negative or not required by law. The above report was generated using voice recognition software. It may contain grammatical, syntax o r spelling errors. Electronically signed by: Anil uGnter M.D. 10/19/2024 9:03 AM
--- NOTE | 2024-10-19 09:49 | Hospitalist Progress Note ---
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 The pain is not consistent with ischemia, she has been seen by vascular medicine Dr Lin in December 2023 and again this admission for similar pain and not suspected to be due to ischemia and she has good dorsalis pedis pulse on palpation. Her left foot is cool but with good capillary refill. CTA 10/01/24 shows some progression of PAD To LLE. Patient has failed different long and short acting opioids to include MS Contin, Morphine, and methadone, Fentanyl patch caused hallucinations Etiology is most likely neuropathic and ischemic pain with parts of this likely being hyperalgesia. Thus far she is tolerating fentanyl patch without any hallucinations. Reports the 40 mg of oxycodone is making her too tired -Palliative Med managing pain control -increased fentanyl patch to 100 mcg on 10/15-nurse navigator working on prior authorization to see if this is affordable for her -increased Lyrica to 150mg tid, continue duloxetine same dose -increased oxycodone to 40mg po q4h prn breakthrough pain on 10/14 but now decreasing back to 30 mg on 10/16 -continue dilaudid IV but decrease dose to 0.2 Mg IV every 4 hours prn breakthrough pain if oxy not effective -Patient agreeable to referral to see a therapist on an intensive basis as an outpatient-psychiatric behavioral health liaison is consulted to assist with this -fentanyl currently on hold 2nd to hypotension (2) Abdominal pain: Plan: -Pt with CT showing Marked nonspecific thickening of the wall the rectosigmoid colon. This could be infectious, inflammatory or neoplastic. There is significant stool throughout the remainder of the colon this could represent constipation, however cannot exclude a degree of low-grade colonic obstruction. -NGT inserted -IVF -abx daptomycin/levaquin -GI consult appreciated, recommending endoscopy once acute abdominal issues resolved. -surgery consult appreciated (3) Abscess: Plan: developed acute onset of painful swollen lumps in left axilla on 10/10. Suspected lymphadenitis initially and then formed a fluctuant mass in left axilla consistent with abscess/phlegmon. Has been on Daptomycin since 10/10 and Levaquin since 10/12. Leukocytosis improved, remains afebrile. Fluctuant area is smaller in size on 10/14. Surgery held off on I&D for now. -continue Dapto and Levaquin x 10 day course but can convert to po levofloxacin and doxycycline meds if ready for discharge otherwise -consult Gen Surgery appreciated-no surgery indicated -Continue to monitor for improvement-slowly improving but will reassess for need for incision and drainage each day -continue pain control as above (4) PAD (peripheral artery disease): Plan: with a h/o right BKA, left toe amputations, multiple angioplasties. Seen by Vascular Med here and nothing acute that needs intervention -continue on aspirin and plavix -added pentoxifylline to try to improve circulation in case her pain is from any ischemia. (5) Anemia: Plan: hemoglobin slowly trending down to 9.6, microcytic. Transferrin saturation low at 8%, ferritin low at 24. No evidence of bleeding from anywhere obvious. B12 low normal at 258, folate normal at 6, TSH normal. She is intolerant to Venofer in the past-caused hypertension. She had tolerated Ferrlecit in the past-I gave her dose on 10/16 and it caused her nausea, belching, and "shakiness." -Will cautiously start oral iron supplementation instead now that she is moving her bowels but does have a history of opioid-induced constipation -started B12 1000 mcg po qAM -Follow CBC -Consider outpatient GI workup after discharge for occult GI blood loss Plan This patient is a 59-year-old female with a history of chronic pain, significant PAD s/p right BKA and amputations of her left toes, DM2 with neuropathy, who has been intermittently in our hospital with paroxysms of uncontrolled pain. Patient has seen pain management and multiple other specialties. She has at times had vascular procedures to improve blood flow without great improvement in her pain. Patient has failed an ilio inguinal nerve block in the past. She presents once again with her chronic left and right groin pain requiring parenteral opiate therapy - Disposition - continued stay med/surg while weaning off of IV Dilaudid and monitoring left axillary abscess/cellulitis-Nurse Navigator will need to do a prior auth for Fentanyl patch-pending Admission and Anticipated Discharge Date Admission Date: October 01, 2024 Subjective Pt's blood pressure stable overnight. NGT in place, pt still complaining of pain, understands opioids cannot be given. Review of Systems Review of Systems: CONST: Negative for fever, body aches and chills. HENT: Negative for neck pain/stiffness, headache, congestion, sore throat, swelling. EYES: Negative for discharge/pain or vision changes. RESP: Negative for cough/hemoptysis and shortness of breath. CV: Negative chest pain, difficulty breathing, palpitations. ABD: Negative pain, nausea, vomiting. : Negative increase frequency, dysuria, blood in urine or stool. MUSC: Negative for muscle aches, edema. SKIN: Negative rash, lesions/sores. NEURO: Negative headache, dizziness, weakness. Physical Exam Physical Exam: GENERAL APPEARANCE NAD, activity normal for age, well developed/ well nourished, no cyanosis, pallor, or diaphoresis. NGT in place EYES lids/conjunctiva normal. EARS/NOSE/THROAT Mucous membranes moist, nares normal, lips/teeth normal uvula midline without oral pharyngeal erythema, exudate or swelling TMs normal bilaterally. No lymphangitis/lymphedema. HEAD/NECK normocephalic atraumatic, no facial trauma, neck is supple. RESPIRATORY respiratory effort normal, speaks in full sentences, no tripod position, no accessory muscle use. Lungs clear to auscultation without rhonchi, wheezes, rales CARDIAC Regular rate and rhythm, no edema. ABDOMINAL Soft, ND/NT. No evidence of fluid wave. No pulsatile masses on exam, rebound tenderness, Tran sign or pain over Mcburney's point. MUSCLES/EXTREMITIES No abnormal range of motion, no swelling. SKIN Warm, pink and dry. No rashes, dermatoses, petechiae or lesions. NEUROLOGICAL Speech is clear and appropriate. Normal level of consciousness. Gait and coordination are normal. 5/5 strength in all extremities. PSYCH Normal mood and affect. Judgement/competence is appropriate Results & Data Results & Data Vital Signs (Past 12 Hours) Vital Signs Temp Pulse Resp BP Pulse Ox Pulse Ox O2 Del Method 10/19/24 08:52 Oxymask 10/19/24 08:52 93 10/19/24 08:49 36.6 C Oxymask 10/19/24 08:30 105 H 10/19/24 08:12 111 H 20 89 L 10/19/24 08:02 168/79 H 10/19/24 07:57 114 H 27 H 91 10/19/24 07:01 99/42 L 10/19/24 07:01 99/42 L 10/19/24 07:00 101 H 18 93 10/19/24 01:50 112 H 10/19/24 01:06 105 H 21 94 Oxymask 10/19/24 01:00 110/55 L 10/19/24 00:51 106 H 29 H 94 Oxymask 10/19/24 00:45 104 H 30 H 94 10/19/24 00:00 110 H 27 H 10/19/24 00:00 37.5 C 130/62 10/19/24 00:00 130/62 10/19/24 00:00 130/62 10/18/24 23:30 110 H 25 H 93 Oxymask 10/18/24 23:03 116 H 26 H 92 10/18/24 23:00 131/57 L 10/18/24 23:00 131/57 L 10/18/24 22:57 118 H 22 90 10/18/24 22:33 114 H 29 H 90 10/18/24 22:18 165/66 H 10/18/24 22:18 165/66 H 10/18/24 22:06 122 H 29 H 90 10/18/24 22:00 121 H 33 H 90 10/18/24 21:30 121 H 16 91 10/18/24 21:24 115 H 26 H 92 10/18/24 21:00 145/60 H 10/18/24 20:57 109 H 16 93 O2 Del Method O2 Flow Rate O2 Flow Rate FiO2 10/19/24 08:52 4 10/19/24 08:52 Nasal Cannula 4 10/19/24 08:49 4 10/19/24 08:30 10/19/24 08:12 10/19/24 08:02 10/19/24 07:57 10/19/24 07:01 10/19/24 07:01 10/19/24 07:00 10/19/24 01:50 10/19/24 01:06 4 10/19/24 01:00 10/19/24 00:51 4 10/19/24 00:45 10/19/24 00:00 10/19/24 00:00 10/19/24 00:00 10/19/24 00:00 10/18/24 23:30 40 10/18/24 23:03 10/18/24 23:00 10/18/24 23:00 10/18/24 22:57 10/18/24 22:33 10/18/24 22:18 10/18/24 22:18 10/18/24 22:06 10/18/24 22:00 10/18/24 21:30 10/18/24 21:24 10/18/24 21:00 10/18/24 20:57 PG Care Time/CCT Total # of Minutes Spent Total Time Spent with Patient: Total time spent is greater than 50% in coordination of care (as documented) at patient's floor/unit and/or counseling patient: Coding Level of Care Code 97540 SUB INP/OBS CARE 235MIN Diagnoses Chronic pain G89.29 Chronic pain type: other chronic pain Abdominal pain R10.9 Abscess L02.91 PAD (peripheral artery disease) I73.9 Anemia D64.9 (1) Chronic pain Chronic pain type: other chronic pain Qualified Code(s): G89.29 - Other chronic pain
[2024-10-19] MEDS: ENOXAPARIN INJ 40 MG/0.4 ML SYR SQ SCH (10:18)
--- NOTE | 2024-10-19 11:42 | Surgery Progress Note ---
Date of Service October 19, 2024 Assessment & Plan (1) Rectosigmoiditis: Plan: responding to abx remove NG clears slowly ambulate agree with GI recommendations Admission and Anticipated Discharge Date Admission Date: October 01, 2024 Subjective pain a little improved multiple BMs yesterday passing flatus Review of Systems Constitutional: no fever and no chills Cardiovascular: no chest pain Gastrointestinal: + abdominal pain; no nausea and no vomit ing NG in place Genitourinary: no dysuria Psychiatric: no behavioral changes Physical Exam Constitutional: WD/WN, vitals as above Eyes: PERRL, conjunctivae normal, anicteric sclerae ENMT: external ear and nose normal, oropharynx normal Neck: trachea midline Respiratory: no respiratory distress Cardiovascular: RRR, no murmur, no edema Gastrointestinal (Abdomen): Inspection/Auscultation: abdomen normal to inspection and normal bowel sounds; abdomen not distended Percussion/Palpation: + abdomen tender and abdomen soft; no guarding and abdomen not rigid Musculoskeletal: Head/Neck/Chest: normocephalic and head atraumatic Skin: no rashes, warm and dry Results & Data Vital Signs (Past 12 Hours) Vital Signs Temp Pulse Pulse Resp BP BP Pulse Ox 10/19/24 11:32 36.6 C 100 H 16 153/72 H 94 10/19/24 09:09 100 H 27 H 94 10/19/24 09:00 154/66 H 10/19/24 08:54 94 10/19/24 08:52 10/19/24 08:52 10/19/24 08:49 36.6 C 10/19/24 08:36 24 93 10/19/24 08:30 105 H 10/19/24 08:12 111 H 20 89 L 10/19/24 08:02 168/79 H 10/19/24 07:57 114 H 27 H 91 10/19/24 07:01 99/42 L 10/19/24 07:01 99/42 L 10/19/24 07:00 101 H 18 93 10/19/24 01:50 112 H 10/19/24 01:06 105 H 21 94 10/19/24 01:00 110/55 L 10/19/24 00:51 106 H 29 H 94 10/19/24 00:45 104 H 30 H 94 10/19/24 00:00 110 H 27 H 10/19/24 00:00 37.5 C 130/62 10/19/24 00:00 130/62 10/19/24 00:00 130/62 10/18/24 23:30 110 H 25 H 93 10/18/24 23:03 116 H 26 H 92 10/18/24 23:00 131/57 L 10/18/24 23:00 131/57 L 10/18/24 22:57 118 H 22 90 Pulse Ox O2 Del Method O2 Del Method O2 Flow Rate O2 Flow Rate FiO2 10/19/24 11:32 Oxymask 4 10/19/24 09:09 Oxymask 4 10/19/24 09:00 10/19/24 08:54 10/19/24 08:52 Oxymask 4 10/19/24 08:52 93 Nasal Cannula 4 10/19/24 08:49 Oxymask 4 10/19/24 08:36 10/19/24 08:30 10/19/24 08:12 10/19/24 08:02 10/19/24 07:57 10/19/24 07:01 10/19/24 07:01 10/19/24 07:00 10/19/24 01:50 10/19/24 01:06 Oxymask 4 10/19/24 01:00 10/19/24 00:51 Oxymask 4 10/19/24 00:45 10/19/24 00:00 10/19/24 00:00 10/19/24 00:00 10/19/24 00:00 10/18/24 23:30 Oxymask 40 10/18/24 23:03 10/18/24 23:00 10/18/24 23:00 10/18/24 22:57
[2024-10-19] MEDS ORDERED: levoFLOXacin/D5W 750 MG/150 ML BAG IV SCH (14:00)
[2024-10-19] MEDS: DAPTOmycin 350 MG in SYRINGE 0 ML IV SCH (14:20)
[2024-10-19] MEDS: CHECK CLONIDINE PATCH PLACEMENT SCH (14:21)
[2024-10-19] MEDS ORDERED: Nursing to Pharmacy Communication SCH (15:30)
[2024-10-19] MEDS: INSULIN ASPART PER UNIT CHARGE SC SCH (18:06)
[2024-10-20] MEDS ORDERED: Nursing to Pharmacy Communication SCH (06:15)
[2024-10-20 07:57] LABS: Calcium 7.6 mg/dl (8.6-10.3)
[2024-10-20 08:00] LABS: Hematocrit (blood only) 26.3 % (37.0-47.0); Hemoglobin 8.4 g/dl (12.0-16.0); Mean Corpuscular Hemoglobin 23.7 pg (25.0-34.0); Mean Corpuscular Hgb Conc 31.9 g/dL (32.0-36.0); Mean Corpuscular Volume 74.1 fL (80.0-100.0); Mean Platelet Volume 10.3 fL (9.4-12.4); Platelet Count 166 K/uL (130-400); RDW Coefficient of Variation 19.3 % (11.5-14.5); Red Blood Count 3.55 M/uL (4.20-5.40); White Blood Count 8.76 K/ul (4.8-10.8)
[2024-10-20 08:07] LABS: BUN Creatinine Ratio 43.9 (10-20); Creatinine Clr Calc Pharmacy 129.3 ml/min; Phosphorus 1.3 mg/dl (2.5-4.9)
--- NOTE | 2024-10-20 08:59 | Hospitalist Progress Note ---
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 The pain is not consistent with ischemia, she has been seen by vascular medicine Dr Lin in December 2023 and again this admission for similar pain and not suspected to be due to ischemia and she has good dorsalis pedis pulse on palpation. Her left foot is cool but with good capillary refill. CTA 10/01/24 shows some progression of PAD To LLE. Patient has failed different long and short acting opioids to include MS Contin, Morphine, and methadone, Fentanyl patch caused hallucinations Etiology is most likely neuropathic and ischemic pain with parts of this likely being hyperalgesia. Thus far she is tolerating fentanyl patch without any hallucinations. Reports the 40 mg of oxycodone is making her too tired -Palliative Med managing pain control -increased fentanyl patch to 100 mcg on 10/15-nurse navigator working on prior authorization to see if this is affordable for her -increased Lyrica to 150mg tid, continue duloxetine same dose -increased oxycodone to 40mg po q4h prn breakthrough pain on 10/14 but now decreasing back to 30 mg on 10/16 -continue dilaudid IV but decrease dose to 0.2 Mg IV every 4 hours prn breakthro ugh pain if oxy not effective -Patient agreeable to referral to see a therapist on an intensive basis as an outpatient-psychiatric behavioral health liaison is consulted to assist with this -fentanyl currently on hold 2nd to hypotension (2) Abdominal pain: Plan: -Pt with CT showing Marked nonspecific thickening of the wall the rectosigmoid colon. This could be infectious, inflammatory or neoplastic. There is significant stool throughout the remainder of the colon this could represent constipation, however cannot exclude a degree of low-grade colonic obstruction. -IVF -abx daptomycin/levaquin -GI consult appreciated, recommending endoscopy once acute abdominal issues resolved. -surgery consult appreciated -NGT d/c'd -on clear liquids, advance diet as per surgery -holding narcotics (3) Abscess: Plan: developed acute onset of painful swollen lumps in left axilla on 10/10. Suspected lymphadenitis initially and then formed a fluctuant mass in left axilla consistent with abscess/phlegmon. Has been on Daptomycin since 10/10 and Levaquin since 10/12. Leukocytosis improved, remains afebrile. Fluctuant area is smaller in size on 10/14. Surgery held off on I&D for now. -continue Dapto and Levaquin x 10 day course but can convert to po levofloxacin and doxycycline meds if ready for discharge otherwise -consult Gen Surgery appreciated-no surgery indicated -Continue to monitor for improvement-slowly improving but will reassess for need for incision and drainage each day -continue pain control as above (4) PAD (peripheral artery disease): Plan: with a h/o right BKA, left toe amputations, multiple angioplasties. Seen by Vascular Med here and nothing acute that needs intervention -continue on aspirin and plavix -added pentoxifylline to try to improve circulation in case her pain is from any ischemia. (5) Anemia: Plan: hemoglobin slowly trending down to 9.6, microcytic. Transferrin saturation low at 8%, ferritin low at 24. No evidence of bleeding from anywhere obvious. B12 low normal at 258, folate normal at 6, TSH normal. She is intolerant to Venofer in the past-caused hypertension. She had tolerated Ferrlecit in the past-I gave her dose on 10/16 and it caused her nausea, belching, and "shakiness." -Will cautiously start oral iron supplementation instead now that she is moving her bowels but does have a history of opioid-induced constipation -started B12 1000 mcg po qAM -Follow CBC -Consider outpatient GI workup after discharge for occult GI blood loss Plan This patient is a 59-year-old female with a history of chronic pain, significant PAD s/p right BKA and amputations of her left toes, DM2 with neuropathy, who has been intermittently in our hospital with paroxysms of uncontrolled pain. Patient has seen pain management and multiple other specialties. She has at times had vascular procedures to improve blood flow without great improvement in her pain. Patient has failed an ilio inguinal nerve block in the past. She presents once again with her chronic left and right groin pain requiring parenteral opiate therapy - Disposition - continued stay med/surg while weaning off of IV Dilaudid and monitoring left axillary abscess/cellulitis-Nurse Navigator will need to do a prior auth for Fentanyl patch-pending Admission and Anticipated Discharge Date Admission Date: October 01, 2024 Subjective NGT d/c'd yesterday. Pt tolerating clear liquid diet. Had loose BM yesterday. Still requesting pain medication increase. Review of Systems Review of Systems: CONST: Negative for fever, body aches and chills. HENT: Negative for neck pain/stiffness, headache, congestion, sore throat, swelling. EYES: Negative for discharge/pain or vision changes. RESP: Negative for cough/hemoptysis and shortness of breath. CV: Negative chest pain, difficulty breathing, palpitations. ABD: Negative pain, nausea, vomiting. : Negative increase frequency, dysuria, blood in urine or stool. MUSC: Negative for muscle aches, edema. SKIN: Negative rash, lesions/sores. NEURO: Negative headache, dizziness, weakness. Physical Exam Physical Exam: GENERAL APPEARANCE NAD, activity normal for age, well developed/ well nourished, no cyanosis, pallor, or diaphoresis. EYES lids/conjunctiva normal. EARS/NOSE/THROAT Mucous membranes moist, nares normal, lips/teeth normal uvula midline without oral pharyngeal erythema, exu date or swelling TMs normal bilaterally. No lymphangitis/lymphedema. HEAD/NECK normocephalic atraumatic, no facial trauma, neck is supple. RESPIRATORY respiratory effort normal, speaks in full sentences, no tripod position, no accessory muscle use. Lungs clear to auscultation without rhonchi, wheezes, rales CARDIAC Regular rate and rhythm, no edema. ABDOMINAL Soft, ND/NT. No evidence of fluid wave. No pulsatile masses on exam, rebound tenderness, Tran sign or pain over Mcburney's point. MUSCLES/EXTREMITIES No abnormal range of motion, no swelling. SKIN Warm, pink and dry. No rashes, dermatoses, petechiae or lesions. NEUROLOGICAL Speech is clear and appropriate. Normal level of consciousness. Gait and coordination are normal. 5/5 strength in all extremities. PSYCH Normal mood and affect. Judgement/competence is appropriate Results & Data Results & Data Vital Signs (Past 12 Hours) Vital Signs Temp Pulse Resp BP BP Pulse Ox O2 Del Method 10/20/24 07:32 36.8 C 103 H 18 167/70 H 96 Nasal Cannula 10/19/24 21:52 36.7 C 106 H 20 156/67 H 94 Nasal Cannula 10/19/24 21:45 Nasal Cannula O2 Flow Rate 10/20/24 07:32 3.0 10/19/24 21:52 4 10/19/24 21:45 4 PG Care Time/CCT Total # of Minutes Spent Total Time Spent with Patient: Total time spent is greater than 50% in coordination of care (as documented) at patient's floor/unit and/or counseling patient: Coding Level of Care Code 54255 SUB INP/OBS CARE 2/35MIN Diagnoses Chronic pain G89.29 Chronic pain type: other chronic pain Abdominal pain R10.9 Abscess L02.91 PAD (peripheral artery disease) I73.9 Anemia D64.9 (1) Chronic pain Chronic pain type: other chronic pain Qualified Code(s): G89.29 - Other chronic pain
[2024-10-20 09:05] LABS: Acanthocytes 1+; Basophils # (auto) 0.03 K/uL (0.00-0.20); Basophils % (auto) 0.3 %; Eosinophils # (auto) 0.05 K/uL (0.00-0.50); Eosinophils % (auto) 0.6 %; Immature Granulocytes # (auto) 0.04 K/uL (0.01-0.20); Immature Granulocytes % (auto) 0.5 %; Lymphocytes # (auto) 0.34 K/uL (1.20-3.40); Lymphocytes % (auto) 3.9 %; Monocytes # (auto) 0.43 K/uL (0.11-0.59); Monocytes % (auto) 4.9 %; Neutrophils # (auto) 7.87 K/uL (1.40-6.50); Neutrophils % (auto) 89.8 %; Polychromasia 1+; Target Cells 1+; Toxic Granulation 1+
[2024-10-20] MEDS ORDERED: POTASSIUM PHOS 3 MMOL/1 ML INFUSION IV STA (10:07)
--- NOTE | 2024-10-20 11:10 | Surgery Progress Note ---
Date of Service October 20, 2024 Assessment & Plan (1) Rectosigmoiditis: Plan: responding to abx clears slowly OOB to chair, move left leg while sitting in chair to increase GI motility continue GI recommendations Plan: No surgical intervention required continue bowel regimen needs to get OOB to increase GI motility, ileus secondary to chronic narcotic use continue medical management Dr. Fuentes has seen and examined pt, agrees with above. Admission and Anticipated Discharge Date Admission Date: October 01, 2024 Subjective still having pain, mostly in left upper abdomen liquid bowel movements, no much gas tolerating clear liquids baseline nausea intermittent, not worse with liquid diet Physical Exam Constitutional: WD/WN, vitals as above cooperative; no acute distress, not ill appearing and not diaphoretic Respiratory: normal respiratory effort; no respiratory distress Gastrointestinal (Abdomen): Inspection/Auscultation: + abdomen distended (mild distention upper abdomen) and + hypoactive bowel sounds; + abnormal bowel sounds Percussion/Palpation: + abdomen tender (Left abdomen) and abdomen soft; no guarding, abdomen not rigid and abdomen not firm Skin: no rashes, warm and dry Results & Data Vital Signs (Past 12 Hours) Vital Signs Temp Pulse Resp BP Pulse Ox O2 Del Method O2 Flow Rate 10/20/24 07:32 36.8 C 103 H 18 167/70 H 96 Nasal Cannula 3.0 Laboratory Results 10/20/24 10/20/24 10/19/24 Range/Units 07:37 07:12 20:56 WBC 8.76 (4.8-10.8) K/ul RBC 3.55 L (4.20-5.40) M/uL Hgb 8.4 L (12.0-16.0) g/dl Hct 26.3 L (37.0-47.0) % MCV 74.1 L (80.0-100.0) fL MCH 23.7 L (25.0-34.0) pg MCHC 31.9 L (32.0-36.0) g/dL RDW Std Deviation 52.0 H (36.4-46.3) fL RDW Coeff of Maria Del Carmen 19.3 H (11.5-14.5) % Plt Count 166 (130-400) K/uL MPV 10.3 (9.4-12.4) fL Immature Gran % (Auto) 0.5 % Neut % (Auto) 89.8 % Lymph % (Auto) 3.9 % Gilliam % (Auto) 4.9 % Eos % (Auto) 0.6 % Baso % (Auto) 0.3 % Neut # (Auto) 7.87 H (1.40-6.50) K/uL Lymph # (Auto) 0.34 L (1.20-3.40) K/uL Gilliam # (Auto) 0.43 (0.11-0.59) K/uL Eos # (Auto) 0.05 (0.00-0.50) K/uL Baso # (Auto) 0.03 (0.00-0.20) K/uL Immature Gran # (Auto) 0.04 (0.01-0.20) K/uL Toxic Granulation 1+ Polychromasia 1+ Target Cells 1+ Acanthocytes (Spur) 1+ Sodium 136 (136-145) mmol/L Potassium 3.0 L (3.5-5.1) mmol/L Chloride 109 H (98-107) mmol/L Carbon Dioxide 23 (21-32) mmol/L Anion Gap 4 (3-11) BUN 18 (6-23) mg/dl Creatinine 0.41 L (0.6-1.2) mg/dl Est Cr Clr Drug Dosing 129.3 ml/min eGFR 112.56 BUN/Creatinine Ratio 43.9 H (10-20) Glucose 113 H (70-99(Fasting)) mg/dl POC Glucose 106 H 127 H (70-99) mg/dl Calcium 7.6 L (8.6-10.3) mg/dl Phosphorus 1.3 L* D (2.5-4.9) mg/dl Magnesium 2.0 (1.7-2.4) mg/dl Stl C. diff Tox B Gene (Neg) Misc Micro Test 10/19/24 10/19/24 10/19/24 Range/Units 17:00 16:40 11:19 WBC (4.8-10.8) K/ul RBC (4.20-5.40) M/uL Hgb (12.0-16.0) g/dl Hct (37.0-47.0) % MCV (80.0-100.0) fL MCH (25.0-34.0) pg MCHC (32.0-36.0) g/dL RDW Std Deviation (36.4-46.3) fL RDW Coeff of Maria Del Carmen (11.5-14.5) % Plt Count (130-400) K/uL MPV (9.4-12.4) fL Immature Gran % (Auto) % Neut % (Auto) % Lymph % (Auto) % Gilliam % (Auto) % Eos % (Auto) % Baso % (Auto) % Neut # (Auto) (1.40-6.50) K/uL Lymph # (Auto) (1.20-3.40) K/uL Gilliam # (Auto) (0.11-0.59) K/uL Eos # (Auto) (0.00-0.50) K/uL Baso # (Auto) (0.00-0.20) K/uL Immature Gran # (Auto) (0.01-0.20) K/uL Toxic Granulation Polychromasia Target Cells Acanthocytes (Spur) Sodium (136-145) mmol/L Potassium (3.5-5.1) mmol/L Chloride (98-107) mmol/L Carbon Dioxide (21-32) mmol/L Anion Gap (3-11) BUN (6-23) mg/dl Creatinine (0.6-1.2) mg/dl Est Cr Clr Drug Dosing ml/min eGFR BUN/Creatinine Ratio (10-20) Glucose (70-99(Fasting)) mg/dl POC Glucose 141 H 119 H (70-99) mg/dl Calcium (8.6-10.3) mg/dl Phosphorus (2.5-4.9) mg/dl Magnesium (1.7-2.4) mg/dl Stl C. diff Tox B Gene Negative Cdiff Gene (Neg) Misc Micro Test 10/18/24 Range/Units 16:30 WBC (4.8-10.8) K/ul RBC (4.20-5.40) M/uL Hgb (12.0-16.0) g/dl Hct (37.0-47.0) % MCV (80.0-100.0) fL MCH (25.0-34.0) pg MCHC (32.0-36.0) g/dL RDW Std Deviation (36.4-46.3) fL RDW Coeff of Maria Del Carmen (11.5-14.5) % Plt Count (130-400) K/uL MPV (9.4-12.4) fL Immature Gran % (Auto) % Neut % (Auto) % Lymph % (Auto) % Gilliam % (Auto) % Eos % (Auto) % Baso % (Auto) % Neut # (Auto) (1.40-6.50) K/uL Lymph # (Auto) (1.20-3.40) K/uL Gilliam # (Auto) (0.11-0.59) K/uL Eos # (Auto) (0.00-0.50) K/uL Baso # (Auto) (0.00-0.20) K/uL Immature Gran # (Auto) (0.01-0.20) K/uL Toxic Granulation Polychromasia Target Cells Acanthocytes (Spur) Sodium (136-145) mmol/L Potassium (3.5-5.1) mmol/L Chloride (98-107) mmol/L Carbon Dioxide (21-32) mmol/L Anion Gap (3-11) BUN (6-23) mg/dl Creatinine (0.6-1.2) mg/dl Est Cr Clr Drug Dosing ml/min eGFR BUN/Creatinine Ratio (10-20) Glucose (70-99(Fasting)) mg/dl POC Glucose (70-99) mg/dl Calcium (8.6-10.3) mg/dl Phosphorus (2.5-4.9) mg/dl Magnesium (1.7-2.4) mg/dl Stl C. diff Tox B Gene (Neg) Misc Micro Test Pending
--- NOTE | 2024-10-20 11:14 | Palliative Care Progress Note ---
Date of Service October 20, 2024 Assessment & Plan (1) Chronic pain: Plan: Liliana complains of very severe and very poorly controlled pain. She states that she called her and "I just told him I want to ." She is tearful. She states no one wants to help her. We discussed the options for resuming opioid therapy. She tells me she does not wish to restart the transdermal fentanyl patch because "everybody told me that is the reason I got so sick." Her insurance does not cover MS Contin or OxyContin. She refuses to take methadone and now also refuses to take transdermal fentanyl. Her insurance will cover Oxy IR, which has been her outpatient regimen for several years. Therefore, we will begin Oxy IR at 20 and 40 mg respectively every 5 hours as needed for either moderate or very severe pain, with the hold parameters of: Hold for somnolence, respiratory rate less than 14 or systolic BP less than 110. Pain management history this admission: Pt came to ED for intractable severe pain in LLE, groin, and L flank: Home regimen Oxy IR 20mg approx 8-10 daily, no relief Prior methadone was stopped by pt at low dose because "it didn't help at all" She has a long hx of stopping meds when she feels they do not help and then she will also delay her own care, to her own detriment She has a prior substance abuse history in distant past and is opioid tolerant +manipulative behaviors, splitting teams At home pt was using oral oxycodone 160 - 200mg daily without relief 200mg oxy = 400mg oral MS equivalents (OMEs) 400mg PO MS = 133mg IV MS = dilaudid 27mg IV daily equivalent She was started TDF for opiate rotation and it is noted she has used far less Dilaudid with PHARMACOMETRICIAN vs PRN dosing/pain has been better managed with PHARMACOMETRICIAN only Dilaudid. Unfortunately, she became hypotensive, and both clonidine and transdermal fentanyl were stopped. She had heme positive stools and was found to have rectal sigmoiditis along with an ileus likely attributed to her longstanding and chronic opioid use. She also has +opioid hyperalgesia syndrome and would probably benefit from UROD but there are no centers in this region who can offer this treatment. She is on numerous psychiatric medications which would benefit from a review/modification or possible rotation to new drugs. (2) Palliative care by specialist: Plan: Palliative care continues to follow for pain/symptom mgmt and ACP. Plan As above Changes were discussed with nursing, primary team and pharmacy. As noted previously: Liliana has longstanding complex chronic pain and psych issues for which she has been without psychiatry care for over 2 years. Recommend formal psychiatry consult for medication revamp and new regimen as current meds are no longer helping despite several dose escalation incl Seroquel. Liliana has a hx manipulative behavior/splitting teams. She benefits with clear/consistent communication across disciplines. It is important for all teams to maintain a unified approach, delivering tanner information in a consistent and direct manner. Attempts to assign blame or introduce misconceptions should be met with a neutral and factual response. A collaborative, non-confrontational approach will help foster a therapeutic relationship, and it is essential to avoid blaming the patient for her challenges which triggers her defensive behaviors; this approach will improve communication and support more effective engagement with her care. Thank you for allowing us to participate in the ongoing care of this patient. Please page with any additional concerns. Ree Driscoll DNP Director, Palliative Medicine Admission and Anticipated Discharge Date Admission Date: October 01, 2024 Subjective Liliana is seen sitting out of bed to chair, no family present. She is awake alert and oriented. She is tired appearing but appeared comfortable at rest at the time I entered the room. When I asked her how she was feeling, she then stated that she was in severe pain and no one was helping her. She added that she is no longer willing to take transdermal fentanyl because "everyone is telling me that is why ended up getting sick." Weekend events reviewed. She was transferred to the ICU with severe abdominal pain and a low-grade fever. A CAT scan at that time demonstrated large stool volume in the colon with fluid-filled small bowel loops possibly related to an enteritis along with her distended stomach. There was initial concern for mesenteric ischemia due to narcotic bowel however an NG tube was placed and she symptomatically improved. Her white count normalized. She is taking p.o. safely.Her rectosigmoiditis is responding to antibiotic therapy. Her NG tube was removed. She is tolerating clear liquids. It is not felt that she needs any surgery at this time. Overall concern is that for ileus due to opioid therapy. She continues to have soft at times liquid stools. C. difficile toxin has been ordered. Blood pressure trending back up - Today 167/70, clonidine patch has been restarted at 0.1. Review of Systems Review of Systems: All systems reviewed & are unremarkable except as noted in Subjective Physical Exam Physical Exam: sleepy, did not focus, fell back asleep quickly Constitutional: + acute distress and + ill appearing Eyes: PERRL, conjunctivae normal, anicteric sclerae ENMT: Mouth: + dental caries, + poor dentition (bloody mouth, dried blood on edges and lips/oral cavity/teeth) and + chipped teeth Neck: normal visual inspection and trachea midline Thyroid: normal thyroid Respiratory: normal respiratory effort, lungs clear to auscultation normal respiratory effort Cardiovascular: Rate/Rhythm: regular rate and regular rhythm Gastrointestinal (Abdomen): normal bowel sounds, soft, nontender, no hepatosplenomegaly Musculoskeletal: Right BKA LLE cool to touch, multiple toe amputations, Skin: left axillary region with hard/indurated area of fluctuance with +erythema, +tender to palpation, on upper/inner left arm there is an area of erythema and tenderness. there is induration and area of fluctuance appreciated. there is redness noted in the upper medial side of her arm Neurologic: PERRL, EOMI, accommodation nl, no face palsy, no dysarthria Psychiatric: Eye Contact: + fair eye contact Speech: + pressured speech Affect: + labile affect Mood: + depressed mood and + irritable mood Insight: + limited insight Judgment: + limited judgement Results & Data Vital Signs (Past 12 Hours) Vital Signs Temp Pulse Resp BP Pulse Ox O2 Del Method O2 Flow Rate 10/20/24 07:32 36.8 C 103 H 18 167/70 H 96 Nasal Cannula 3.0 Laboratory Results 10/20/24 10/20/24 10/19/24 Range/Units 07:37 07:12 20:56 WBC 8.76 (4.8-10.8) K/ul RBC 3.55 L (4.20-5.40) M/uL Hgb 8.4 L (12.0-16.0) g/dl Hct 26.3 L (37.0-47.0) % MCV 74.1 L (80.0-100.0) fL MCH 23.7 L (25.0-34.0) pg MCHC 31.9 L (32.0-36.0) g/dL RDW Std Deviation 52.0 H (36.4-46.3) fL RDW Coeff of Maria Del Carmen 19.3 H (11.5-14.5) % Plt Count 166 (130-400) K/uL MPV 10.3 (9.4-12.4) fL Immature Gran % (Auto) 0.5 % Neut % (Auto) 89.8 % Lymph % (Auto) 3.9 % Grundy % (Auto) 4.9 % Eos % (Auto) 0.6 % Baso % (Auto) 0.3 % Neut # (Auto) 7.87 H (1.40-6.50) K/uL Lymph # (Auto) 0.34 L (1.20-3.40) K/uL Grundy # (Auto) 0.43 (0.11-0.59) K/uL Eos # (Auto) 0.05 (0.00-0.50) K/uL Baso # (Auto) 0.03 (0.00-0.20) K/uL Immature Gran # (Auto) 0.04 (0.01-0.20) K/uL Toxic Granulation 1+ Polychromasia 1+ Target Cells 1+ Echinocytes Acanthocytes (Spur) 1+ Sodium 136 (136-145) mmol/L Potassium 3.0 L (3.5-5.1) mmol/L Chloride 109 H (98-107) mmol/L Carbon Dioxide 23 (21-32) mmol/L Anion Gap 4 (3-11) BUN 18 (6-23) mg/dl Creatinine 0.41 L (0.6-1.2) mg/dl Est Cr Clr Drug Dosing 129.3 ml/min eGFR 112.56 BUN/Creatinine Ratio 43.9 H (10-20) Glucose 113 H (70-99(Fasting)) mg/dl POC Glucose 106 H 127 H (70-99) mg/dl Lactate (0.4-2.0) mmol/L Calcium 7.6 L (8.6-10.3) mg/dl Phosphorus 1.3 L* D (2.5-4.9) mg/dl Magnesium 2.0 (1.7-2.4) mg/dl Total Bilirubin (0.2-1.0) mg/dl AST (13-39) U/L ALT (7-52) U/L Alkaline Phosphatase (34-104) U/L Total Protein (6.0-8.3) gm/dl Albumin (3.4-5.0) gm/dl Globulin (2.5-4.0) gm/dl Albumin/Globulin Ratio (0.9-2) Vitamin B12 (180-914) pg/ml Folate (>5.38) ng/ml Procalcitonin (0-0.5) ng/ml TSH (0.300-4.500) uIu/ml Random Cortisol mcg/dl Urine Color Urine Appearance (Clear) Urine pH (4.5-7.5) Ur Specific Blum (1.000-1.030) Urine Protein (Negative) Urine Glucose (UA) (Negative) Urine Ketones (Negative) Urine Blood (Negative) Urine Nitrite (Negative) Urine Bilirubin (Negative) Urine Urobilinogen (Negative) Ur Leukocyte Esterase (Negative) Urine WBC (Auto) (0-5) /hpf Urine RBC (Auto) (0-2) /hpf U Hyaline Cast (Auto) (0-2) /lpf U Epithel Cells (Auto) (0-2) /hpf Urine Bacteria (Auto) (None Seen) Nasal Screen MRSA (PCR) (Negative) Stool Occult Bld Scrn (Negative) Stl C. diff Tox B Gene (Neg) Misc Micro Test 10/19/24 10/19/24 10/19/24 Range/Units 17:00 16:40 11:19 WBC (4.8-10.8) K/ul RBC (4.20-5.40) M/uL Hgb (12.0-16.0) g/dl Hct (37.0-47.0) % MCV (80.0-100.0) fL MCH (25.0-34.0) pg MCHC (32.0-36.0) g/dL RDW Std Deviation (36.4-46.3) fL RDW Coeff of Maria Del Carmen (11.5-14.5) % Plt Count (130-400) K/uL MPV (9.4-12.4) fL Immature Gran % (Auto) % Neut % (Auto) % Lymph % (Auto) % Grundy % (Auto) % Eos % (Auto) % Baso % (Auto) % Neut # (Auto) (1.40-6.50) K/uL Lymph # (Auto) (1.20-3.40) K/uL Grundy # (Auto) (0.11-0.59) K/uL Eos # (Auto) (0.00-0.50) K/uL Baso # (Auto) (0.00-0.20) K/uL Immature Gran # (Auto) (0.01-0.20) K/uL Toxic Granulation Polychromasia Target Cells Echinocytes Acanthocytes (Spur) Sodium (136-145) mmol/L Potassium (3.5-5.1) mmol/L Chloride (98-107) mmol/L Carbon Dioxide (21-32) mmol/L Anion Gap (3-11) BUN (6-23) mg/dl Creatinine (0.6-1.2) mg/dl Est Cr Clr Drug Dosing ml/min eGFR BUN/Creatinine Ratio (10-20) Glucose (70-99(Fasting)) mg/dl POC Glucose 141 H 119 H (70-99) mg/dl Lactate (0.4-2.0) mmol/L Calcium (8.6-10.3) mg/dl Phosphorus (2.5-4.9) mg/dl Magnesium (1.7-2.4) mg/dl Total Bilirubin (0.2-1.0) mg/dl AST (13-39) U/L ALT (7-52) U/L Alkaline Phosphatase (34-104) U/L Total Protein (6.0-8.3) gm/dl Albumin (3.4-5.0) gm/dl Globulin (2.5-4.0) gm/dl Albumin/Globulin Ratio (0.9-2) Vitamin B12 (180-914) pg/ml Folate (>5.38) ng/ml Procalcitonin (0-0.5) ng/ml TSH (0.300-4.500) uIu/ml Random Cortisol mcg/dl Urine Color Urine Appearance (Clear) Urine pH (4.5-7.5) Ur Specific Blum (1.000-1.030) Urine Protein (Negative) Urine Glucose (UA) (Negative) Urine Ketones (Negative) Urine Blood (Negative) Urine Nitrite (Negative) Urine Bilirubin (Negative) Urine Urobilinogen (Negative) Ur Leukocyte Esterase (Negative) Urine WBC (Auto) (0-5) /hpf Urine RBC (Auto) (0-2) /hpf U Hyaline Cast (Auto) (0-2) /lpf U Epithel Cells (Auto) (0-2) /hpf Urine Bacteria (Auto) (None Seen) Nasal Screen MRSA (PCR) (Negative) Stool Occult Bld Scrn (Negative) Stl C. diff Tox B Gene Negative Cdiff Gene (Neg) Misc Micro Test 10/19/24 10/19/24 10/19/24 Range/Units 05:10 05:00 00:05 WBC 7.47 (4.8-10.8) K/ul RBC 3.44 L (4.20-5.40) M/uL Hgb 8.2 L (12.0-16.0) g/dl Hct 25.9 L (37.0-47.0) % MCV 75.3 L (80.0-100.0) fL MCH 23.8 L (25.0-34.0) pg MCHC 31.7 L (32.0-36.0) g/dL RDW Std Deviation 52.3 H (36.4-46.3) fL RDW Coeff of Maria Del Carmen 19.1 H (11.5-14.5) % Plt Count 165 (130-400) K/uL MPV 10.0 (9.4-12.4) fL Immature Gran % (Auto) 1.1 % Neut % (Auto) 89.0 % Lymph % (Auto) 3.9 % Grundy % (Auto) 5.9 % Eos % (Auto) 0.1 % Baso % (Auto) 0.0 % Neut # (Auto) 6.65 H (1.40-6.50) K/uL Lymph # (Auto) 0.29 L (1.20-3.40) K/uL Grundy # (Auto) 0.44 (0.11-0.59) K/uL Eos # (Auto) 0.01 (0.00-0.50) K/uL Baso # (Auto) 0.00 (0.00-0.20) K/uL Immature Gran # (Auto) 0.08 (0.01-0.20) K/uL Toxic Granulation Polychromasia 1+ Target Cells Echinocytes 1+ Acanthocytes (Spur) Sodium 136 (136-145) mmol/L Potassium 3.5 D (3.5-5.1) mmol/L Chloride 109 H (98-107) mmol/L Carbon Dioxide 23 (21-32) mmol/L Anion Gap 4 (3-11) BUN 32 H D (6-23) mg/dl Creatinine 0.68 D (0.6-1.2) mg/dl Est Cr Clr Drug Dosing 78.0 ml/min eGFR 99.64 BUN/Creatinine Ratio 47.1 H (10-20) Glucose 94 (70-99(Fasting)) mg/dl POC Glucose 93 86 (70-99) mg/dl Lactate (0.4-2.0) mmol/L Calcium 7.8 L (8.6-10.3) mg/dl Phosphorus 3.3 (2.5-4.9) mg/dl Magnesium 1.8 (1.7-2.4) mg/dl Total Bilirubin (0.2-1.0) mg/dl AST (13-39) U/L ALT (7-52) U/L Alkaline Phosphatase (34-104) U/L Total Protein (6.0-8.3) gm/dl Albumin (3.4-5.0) gm/dl Globulin (2.5-4.0) gm/dl Albumin/Globulin Ratio (0.9-2) Vitamin B12 (180-914) pg/ml Folate (>5.38) ng/ml Procalcitonin (0-0.5) ng/ml TSH (0.300-4.500) uIu/ml Random Cortisol mcg/dl Urine Color Urine Appearance (Clear) Urine pH (4.5-7.5) Ur Specific Blum (1.000-1.030) Urine Protein (Negative) Urine Glucose (UA) (Negative) Urine Ketones (Negative) Urine Blood (Negative) Urine Nitrite (Negative) Urine Bilirubin (Negative) Urine Urobilinogen (Negative) Ur Leukocyte Esterase (Negative) Urine WBC (Auto) (0-5) /hpf Urine RBC (Auto) (0-2) /hpf U Hyaline Cast (Auto) (0-2) /lpf U Epithel Cells (Auto) (0-2) /hpf Urine Bacteria (Auto) (None Seen) Nasal Screen MRSA (PCR) (Negative) Stool Occult Bld Scrn (Negative) Stl C. diff Tox B Gene (Neg) Misc Micro Test 10/18/24 10/18/24 10/18/24 Range/Units Unknown 17:58 16:30 WBC (4.8-10.8) K/ul RBC (4.20-5.40) M/uL Hgb (12.0-16.0) g/dl Hct (37.0-47.0) % MCV (80.0-100.0) fL MCH (25.0-34.0) pg MCHC (32.0-36.0) g/dL RDW Std Deviation (36.4-46.3) fL RDW Coeff of Maria Del Carmen (11.5-14.5) % Plt Count (130-400) K/uL MPV (9.4-12.4) fL Immature Gran % (Auto) % Neut % (Auto) % Lymph % (Auto) % Grundy % (Auto) % Eos % (Auto) % Baso % (Auto) % Neut # (Auto) (1.40-6.50) K/uL Lymph # (Auto) (1.20-3.40) K/uL Grundy # (Auto) (0.11-0.59) K/uL Eos # (Auto) (0.00-0.50) K/uL Baso # (Auto) (0.00-0.20) K/uL Immature Gran # (Auto) (0.01-0.20) K/uL Toxic Granulation Polychromasia Target Cells Echinocytes Acanthocytes (Spur) Sodium (136-145) mmol/L Potassium (3.5-5.1) mmol/L Chloride (98-107) mmol/L Carbon Dioxide (21-32) mmol/L Anion Gap (3-11) BUN (6-23) mg/dl Creatinine (0.6-1.2) mg/dl Est Cr Clr Drug Dosing ml/min eGFR BUN/Creatinine Ratio (10-20) Glucose (70-99(Fasting)) mg/dl POC Glucose 84 (70-99) mg/dl Lactate (0.4-2.0) mmol/L Calcium (8.6-10.3) mg/dl Phosphorus (2.5-4.9) mg/dl Magnesium (1.7-2.4) mg/dl Total Bilirubin (0.2-1.0) mg/dl AST (13-39) U/L ALT (7-52) U/L Alkaline Phosphatase (34-104) U/L Total Protein (6.0-8.3) gm/dl Albumin (3.4-5.0) gm/dl Globulin (2.5-4.0) gm/dl Albumin/Globulin Ratio (0.9-2) Vitamin B12 (180-914) pg/ml Folate (>5.38) ng/ml Procalcitonin (0-0.5) ng/ml TSH (0.300-4.500) uIu/ml Random Cortisol mcg/dl Urine Color Yellow Urine Appearance Cloudy A (Clear) Urine pH 5.0 (4.5-7.5) Ur Specific Blum 1.018 (1.000-1.030) Urine Protein 1+ H (Negative) Urine Glucose (UA) Negative (Negative) Urine Ketones Negative (Negative) Urine Blood 2+ H (Negative) Urine Nitrite Negative (Negative) Urine Bilirubin Negative (Negative) Urine Urobilinogen Negative (Negative) Ur Leukocyte Esterase 1+ H (Negative) Urine WBC (Auto) 0-5 (0-5) /hpf Urine RBC (Auto) 11-20 H (0-2) /hpf U Hyaline Cast (Auto) 6-10 H (0-2) /lpf U Epithel Cells (Auto) 3-5 H (0-2) /hpf Urine Bacteria (Auto) 1+ H (None Seen) Nasal Screen MRSA (PCR) Negative (Negative) Stool Occult Bld Scrn (Negative) Stl C. diff Tox B Gene (Neg) Misc Micro Test Pending 10/18/24 10/18/24 10/18/24 Range/Units 11:37 10:52 09:44 WBC (4.8-10.8) K/ul RBC (4.20-5.40) M/uL Hgb (12.0-16.0) g/dl Hct (37.0-47.0) % MCV (80.0-100.0) fL MCH (25.0-34.0) pg MCHC (32.0-36.0) g/dL RDW Std Deviation (36.4-46.3) fL RDW Coeff of Maria Del Carmen (11.5-14.5) % Plt Count (130-400) K/uL MPV (9.4-12.4) fL Immature Gran % (Auto) % Neut % (Auto) % Lymph % (Auto) % Grundy % (Auto) % Eos % (Auto) % Baso % (Auto) % Neut # (Auto) (1.40-6.50) K/uL Lymph # (Auto) (1.20-3.40) K/uL Grundy # (Auto) (0.11-0.59) K/uL Eos # (Auto) (0.00-0.50) K/uL Baso # (Auto) (0.00-0.20) K/uL Immature Gran # (Auto) (0.01-0.20) K/uL Toxic Granulation Polychromasia Target Cells Echinocytes Acanthocytes (Spur) Sodium (136-145) mmol/L Potassium (3.5-5.1) mmol/L Chloride (98-107) mmol/L Carbon Dioxide (21-32) mmol/L Anion Gap (3-11) BUN (6-23) mg/dl Creatinine (0.6-1.2) mg/dl Est Cr Clr Drug Dosing ml/min eGFR BUN/Creatinine Ratio (10-20) Glucose (70-99(Fasting)) mg/dl POC Glucose 92 (70-99) mg/dl Lactate 1.1 1.5 (0.4-2.0) mmol/L Calcium (8.6-10.3) mg/dl Phosphorus (2.5-4.9) mg/dl Magnesium (1.7-2.4) mg/dl Total Bilirubin (0.2-1.0) mg/dl AST (13-39) U/L ALT (7-52) U/L Alkaline Phosphatase (34-104) U/L Total Protein (6.0-8.3) gm/dl Albumin (3.4-5.0) gm/dl Globulin (2.5-4.0) gm/dl Albumin/Globulin Ratio (0.9-2) Vitamin B12 (180-914) pg/ml Folate (>5.38) ng/ml Procalcitonin (0-0.5) ng/ml TSH (0.300-4.500) uIu/ml Random Cortisol mcg/dl Urine Color Urine Appearance (Clear) Urine pH (4.5-7.5) Ur Specific Blum (1.000-1.030) Urine Protein (Negative) Urine Glucose (UA) (Negative) Urine Ketones (Negative) Urine Blood (Negative) Urine Nitrite (Negative) Urine Bilirubin (Negative) Urine Urobilinogen (Negative) Ur Leukocyte Esterase (Negative) Urine WBC (Auto) (0-5) /hpf Urine RBC (Auto) (0-2) /hpf U Hyaline Cast (Auto) (0-2) /lpf U Epithel Cells (Auto) (0-2) /hpf Urine Bacteria (Auto) (None Seen) Nasal Screen MRSA (PCR) (Negative) Stool Occult Bld Scrn (Negative) Stl C. diff Tox B Gene (Neg) Misc Micro Test 10/18/24 10/18/24 10/18/24 Range/Units 08:10 07:55 05:04 WBC 8.65 (4.8-10.8) K/ul RBC 3.93 L (4.20-5.40) M/uL Hgb 9.2 L (12.0-16.0) g/dl Hct 29.5 L (37.0-47.0) % MCV 75.1 L (80.0-100.0) fL MCH 23.4 L (25.0-34.0) pg MCHC 31.2 L (32.0-36.0) g/dL RDW Std Deviation 51.3 H (36.4-46.3) fL RDW Coeff of Maria Del Carmen 18.8 H (11.5-14.5) % Plt Count 184 (130-400) K/uL MPV 9.8 (9.4-12.4) fL Immature Gran % (Auto) 0.5 % Neut % (Auto) 88.0 % Lymph % (Auto) 5.3 % Grundy % (Auto) 6.1 % Eos % (Auto) 0.0 % Baso % (Auto) 0.1 % Neut # (Auto) 7.61 H (1.40-6.50) K/uL Lymph # (Auto) 0.46 L (1.20-3.40) K/uL Grundy # (Auto) 0.53 (0.11-0.59) K/uL Eos # (Auto) 0.00 (0.00-0.50) K/uL Baso # (Auto) 0.01 (0.00-0.20) K/uL Immature Gran # (Auto) 0.04 (0.01-0.20) K/uL Toxic Granulation Polychromasia Target Cells Echinocytes Acanthocytes (Spur) Sodium 131 L (136-145) mmol/L Potassium 4.6 (3.5-5.1) mmol/L Chloride 102 (98-107) mmol/L Carbon Dioxide 23 (21-32) mmol/L Anion Gap 6 (3-11) BUN 58 H (6-23) mg/dl Creatinine 1.62 H (0.6-1.2) mg/dl Est Cr Clr Drug Dosing 32.7 ml/min eGFR 36.15 BUN/Creatinine Ratio 35.8 H (10-20) Glucose 94 (70-99(Fasting)) mg/dl POC Glucose (70-99) mg/dl Lactate 2.5 H* (0.4-2.0) mmol/L Calcium 8.2 L (8.6-10.3) mg/dl Phosphorus (2.5-4.9) mg/dl Magnesium (1.7-2.4) mg/dl Total Bilirubin 0.8 (0.2-1.0) mg/dl AST 54 H (13-39) U/L ALT 21 (7-52) U/L Alkaline Phosphatase 376 H (34-104) U/L Total Protein 5.6 L (6.0-8.3) gm/dl Albumin 3.3 L (3.4-5.0) gm/dl Globulin 2.3 L (2.5-4.0) gm/dl Albumin/Globulin Ratio 1.4 (0.9-2) Vitamin B12 (180-914) pg/ml Folate (>5.38) ng/ml Procalcitonin 13.10 H (0-0.5) ng/ml TSH (0.300-4.500) uIu/ml Random Cortisol 43.79 mcg/dl Urine Color Urine Appearance (Clear) Urine pH (4.5-7.5) Ur Specific Blum (1.000-1.030) Urine Protein (Negative) Urine Glucose (UA) (Negative) Urine Ketones (Negative) Urine Blood (Negative) Urine Nitrite (Negative) Urine Bilirubin (Negative) Urine Urobilinogen (Negative) Ur Leukocyte Esterase (Negative) Urine WBC (Auto) (0-5) /hpf Urine RBC (Auto) (0-2) /hpf U Hyaline Cast (Auto) (0-2) /lpf U Epithel Cells (Auto) (0-2) /hpf Urine Bacteria (Auto) (None Seen) Nasal Screen MRSA (PCR) (Negative) Stool Occult Bld Scrn (Negative) Stl C. diff Tox B Gene (Neg) Misc Micro Test 10/18/24 10/17/24 10/17/24 Range/Units 04:15 23:37 22:29 WBC (4.8-10.8) K/ul RBC (4.20-5.40) M/uL Hgb (12.0-16.0) g/dl Hct (37.0-47.0) % MCV (80.0-100.0) fL MCH (25.0-34.0) pg MCHC (32.0-36.0) g/dL RDW Std Deviation (36.4-46.3) fL RDW Coeff of Maria Del Carmen (11.5-14.5) % Plt Count (130-400) K/uL MPV (9.4-12.4) fL Immature Gran % (Auto) % Neut % (Auto) % Lymph % (Auto) % Grundy % (Auto) % Eos % (Auto) % Baso % (Auto) % Neut # (Auto) (1.40-6.50) K/uL Lymph # (Auto) (1.20-3.40) K/uL Grundy # (Auto) (0.11-0.59) K/uL Eos # (Auto) (0.00-0.50) K/uL Baso # (Auto) (0.00-0.20) K/uL Immature Gran # (Auto) (0.01-0.20) K/uL Toxic Granulation Polychromasia Target Cells Echinocytes Acanthocytes (Spur) Sodium (136-145) mmol/L Potassium (3.5-5.1) mmol/L Chloride (98-107) mmol/L Carbon Dioxide (21-32) mmol/L Anion Gap (3-11) BUN (6-23) mg/dl Creatinine (0.6-1.2) mg/dl Est Cr Clr Drug Dosing ml/min eGFR BUN/Creatinine Ratio (10-20) Glucose (70-99(Fasting)) mg/dl POC Glucose 118 H 67 L* (70-99) mg/dl Lactate 1.9 (0.4-2.0) mmol/L Calcium (8.6-10.3) mg/dl Phosphorus (2.5-4.9) mg/dl Magnesium (1.7-2.4) mg/dl Total Bilirubin (0.2-1.0) mg/dl AST (13-39) U/L ALT (7-52) U/L Alkaline Phosphatase (34-104) U/L Total Protein (6.0-8.3) gm/dl Albumin (3.4-5.0) gm/dl Globulin (2.5-4.0) gm/dl Albumin/Globulin Ratio (0.9-2) Vitamin B12 (180-914) pg/ml Folate (>5.38) ng/ml Procalcitonin (0-0.5) ng/ml TSH (0.300-4.500) uIu/ml Random Cortisol mcg/dl Urine Color Urine Appearance (Clear) Urine pH (4.5-7.5) Ur Specific Blum (1.000-1.030) Urine Protein (Negative) Urine Glucose (UA) (Negative) Urine Ketones (Negative) Urine Blood (Negative) Urine Nitrite (Negative) Urine Bilirubin (Negative) Urine Urobilinogen (Negative) Ur Leukocyte Esterase (Negative) Urine WBC (Auto) (0-5) /hpf Urine RBC (Auto) (0-2) /hpf U Hyaline Cast (Auto) (0-2) /lpf U Epithel Cells (Auto) (0-2) /hpf Urine Bacteria (Auto) (None Seen) Nasal Screen MRSA (PCR) (Negative) Stool Occult Bld Scrn (Negative) Stl C. diff Tox B Gene (Neg) Misc Micro Test 10/17/24 10/17/24 10/17/24 Range/Units 21:43 21:32 20:58 WBC (4.8-10.8) K/ul RBC (4.20-5.40) M/uL Hgb (12.0-16.0) g/dl Hct (37.0-47.0) % MCV (80.0-100.0) fL MCH (25.0-34.0) pg MCHC (32.0-36.0) g/dL RDW Std Deviation (36.4-46.3) fL RDW Coeff of Maria Del Carmen (11.5-14.5) % Plt Count (130-400) K/uL MPV (9.4-12.4) fL Immature Gran % (Auto) % Neut % (Auto) % Lymph % (Auto) % [place]undy % (Auto) % Eos % (Auto) % Baso % (Auto) % Neut # (Auto) (1.40-6.50) K/uL Lymph # (Auto) (1.20-3.40) K/uL Grundy # (Auto) (0.11-0.59) K/uL Eos # (Auto) (0.00-0.50) K/uL Baso # (Auto) (0.00-0.20) K/uL Immature Gran # (Auto) (0.01-0.20) K/uL Toxic Granulation Polychromasia Target Cells Echinocytes Acanthocytes (Spur) Sodium 131 L (136-145) mmol/L Potassium 5.1 (3.5-5.1) mmol/L Chloride 102 (98-107) mmol/L Carbon Dioxide 19 L (21-32) mmol/L Anion Gap 10 (3-11) BUN 62 H (6-23) mg/dl Creatinine 1.88 H (0.6-1.2) mg/dl Est Cr Clr Drug Dosing 25.2 ml/min eGFR 30.24 BUN/Creatinine Ratio 33.0 H (10-20) Glucose 88 (70-99(Fasting)) mg/dl POC Glucose 67 L* 72 (70-99) mg/dl Lactate (0.4-2.0) mmol/L Calcium 8.2 L (8.6-10.3) mg/dl Phosphorus (2.5-4.9) mg/dl Magnesium 1.6 L (1.7-2.4) mg/dl Total Bilirubin 0.6 (0.2-1.0) mg/dl AST 49 H (13-39) U/L ALT 21 (7-52) U/L Alkaline Phosphatase 361 H (34-104) U/L Total Protein 5.3 L (6.0-8.3) gm/dl Albumin 3.1 L (3.4-5.0) gm/dl Globulin 2.2 L (2.5-4.0) gm/dl Albumin/Globulin Ratio 1.4 (0.9-2) Vitamin B12 (180-914) pg/ml Folate (>5.38) ng/ml Procalcitonin (0-0.5) ng/ml TSH (0.300-4.500) uIu/ml Random Cortisol mcg/dl Urine Color Urine Appearance (Clear) Urine pH (4.5-7.5) Ur Specific Blum (1.000-1.030) Urine Protein (Negative) Urine Glucose (UA) (Negative) Urine Ketones (Negative) Urine Blood (Negative) Urine Nitrite (Negative) Urine Bilirubin (Negative) Urine Urobilinogen (Negative) Ur Leukocyte Esterase (Negative) Urine WBC (Auto) (0-5) /hpf Urine RBC (Auto) (0-2) /hpf U Hyaline Cast (Auto) (0-2) /lpf U Epithel Cells (Auto) (0-2) /hpf Urine Bacteria (Auto) (None Seen) Nasal Screen MRSA (PCR) (Negative) Stool Occult Bld Scrn (Negative) Stl C. diff Tox B Gene (Neg) Misc Micro Test 10/17/24 10/17/24 10/17/24 Range/Units 16:49 14:34 14:01 WBC 14.60 H (4.8-10.8) K/ul RBC 3.93 L (4.20-5.40) M/uL Hgb 9.4 L (12.0-16.0) g/dl Hct 30.2 L (37.0-47.0) % MCV 76.8 L (80.0-100.0) fL MCH 23.9 L (25.0-34.0) pg MCHC 31.1 L (32.0-36.0) g/dL RDW Std Deviation 52.0 H (36.4-46.3) fL RDW Coeff of Maria Del Carmen 18.7 H (11.5-14.5) % Plt Count 211 (130-400) K/uL MPV 10.7 (9.4-12.4) fL Immature Gran % (Auto) % Neut % (Auto) % Lymph % (Auto) % Grundy % (Auto) % Eos % (Auto) % Baso % (Auto) % Neut # (Auto) (1.40-6.50) K/uL Lymph # (Auto) (1.20-3.40) K/uL Grundy # (Auto) (0.11-0.59) K/uL Eos # (Auto) (0.00-0.50) K/uL Baso # (Auto) (0.00-0.20) K/uL Immature Gran # (Auto) (0.01-0.20) K/uL Toxic Granulation Polychromasia Target Cells Echinocytes Acanthocytes (Spur) Sodium (136-145) mmol/L Potassium (3.5-5.1) mmol/L Chloride (98-107) mmol/L Carbon Dioxide (21-32) mmol/L Anion Gap (3-11) BUN (6-23) mg/dl Creatinine (0.6-1.2) mg/dl Est Cr Clr Drug Dosing ml/min eGFR BUN/Creatinine Ratio (10-20) Glucose (70-99(Fasting)) mg/dl POC Glucose 110 H (70-99) mg/dl Lactate (0.4-2.0) mmol/L Calcium (8.6-10.3) mg/dl Phosphorus (2.5-4.9) mg/dl Magnesium (1.7-2.4) mg/dl Total Bilirubin (0.2-1.0) mg/dl AST (13-39) U/L ALT (7-52) U/L Alkaline Phosphatase (34-104) U/L Total Protein (6.0-8.3) gm/dl Albumin (3.4-5.0) gm/dl Globulin (2.5-4.0) gm/dl Albumin/Globulin Ratio (0.9-2) Vitamin B12 (180-914) pg/ml Folate (>5.38) ng/ml Procalcitonin (0-0.5) ng/ml TSH (0.300-4.500) uIu/ml Random Cortisol mcg/dl Urine Color Urine Appearance (Clear) Urine pH (4.5-7.5) Ur Specific Blum (1.000-1.030) Urine Protein (Negative) Urine Glucose (UA) (Negative) Urine Ketones (Negative) Urine Blood (Negative) Urine Nitrite (Negative) Urine Bilirubin (Negative) Urine Urobilinogen (Negative) Ur Leukocyte Esterase (Negative) Urine WBC (Auto) (0-5) /hpf Urine RBC (Auto) (0-2) /hpf U Hyaline Cast (Auto) (0-2) /lpf U Epithel Cells (Auto) (0-2) /hpf Urine Bacteria (Auto) (None Seen) Nasal Screen MRSA (PCR) (Negative) Stool Occult Bld Scrn Positive A (Negative) Stl C. diff Tox B Gene (Neg) Misc Micro Test 10/17/24 10/17/24 10/17/24 Range/Units 11:33 08:45 08:02 WBC (4.8-10.8) K/ul RBC (4.20-5.40) M/uL Hgb (12.0-16.0) g/dl Hct (37.0-47.0) % MCV (80.0-100.0) fL MCH (25.0-34.0) pg MCHC (32.0-36.0) g/dL RDW Std Deviation (36.4-46.3) fL RDW Coeff of Maria Del Carmen (11.5-14.5) % Plt Count (130-400) K/uL MPV (9.4-12.4) fL Immature Gran % (Auto) % Neut % (Auto) % Lymph % (Auto) % Grundy % (Auto) % Eos % (Auto) % Baso % (Auto) % Neut # (Auto) (1.40-6.50) K/uL Lymph # (Auto) (1.20-3.40) K/uL Grundy # (Auto) (0.11-0.59) K/uL Eos # (Auto) (0.00-0.50) K/uL Baso # (Auto) (0.00-0.20) K/uL Immature Gran # (Auto) (0.01-0.20) K/uL Toxic Granulation Polychromasia Target Cells Echinocytes Acanthocytes (Spur) Sodium (136-145) mmol/L Potassium (3.5-5.1) mmol/L Chloride (98-107) mmol/L Carbon Dioxide (21-32) mmol/L Anion Gap (3-11) BUN (6-23) mg/dl Creatinine (0.6-1.2) mg/dl Est Cr Clr Drug Dosing ml/min eGFR BUN/Creatinine Ratio (10-20) Glucose (70-99(Fasting)) mg/dl POC Glucose 91 122 H (70-99) mg/dl Lactate (0.4-2.0) mmol/L Calcium (8.6-10.3) mg/dl Phosphorus (2.5-4.9) mg/dl Magnesium (1.7-2.4) mg/dl Total Bilirubin (0.2-1.0) mg/dl AST (13-39) U/L ALT (7-52) U/L Alkaline Phosphatase (34-104) U/L Total Protein (6.0-8.3) gm/dl Albumin (3.4-5.0) gm/dl Globulin (2.5-4.0) gm/dl Albumin/Globulin Ratio (0.9-2) Vitamin B12 (180-914) pg/ml Folate (>5.38) ng/ml Procalcitonin (0-0.5) ng/ml TSH (0.300-4.500) uIu/ml Random Cortisol mcg/dl Urine Color Urine Appearance (Clear) Urine pH (4.5-7.5) Ur Specific Blum (1.000-1.030) Urine Protein (Negative) Urine Glucose (UA) (Negative) Urine Ketones (Negative) Urine Blood (Negative) Urine Nitrite (Negative) Urine Bilirubin (Negative) Urine Urobilinogen (Negative) Ur Leukocyte Esterase (Negative) Urine WBC (Auto) (0-5) /hpf Urine RBC (Auto) (0-2) /hpf U Hyaline Cast (Auto) (0-2) /lpf U Epithel Cells (Auto) (0-2) /hpf Urine Bacteria (Auto) (None Seen) Nasal Screen MRSA (PCR) (Negative) Stool Occult Bld Scrn (Negative) Stl C. diff Tox B Gene Negative Cdiff Gene (Neg) Misc Micro Test 10/17/24 10/16/24 10/16/24 Range/Units 06:29 21:00 16:22 WBC (4.8-10.8) K/ul RBC (4.20-5.40) M/uL Hgb (12.0-16.0) g/dl Hct (37.0-47.0) % MCV (80.0-100.0) fL MCH (25.0-34.0) pg MCHC (32.0-36.0) g/dL RDW Std Deviation (36.4-46.3) fL RDW Coeff of Maria Del Carmen (11.5-14.5) % Plt Count (130-400) K/uL MPV (9.4-12.4) fL Immature Gran % (Auto) % Neut % (Auto) % Lymph % (Auto) % Grundy % (Auto) % Eos % (Auto) % Baso % (Auto) % Neut # (Auto) (1.40-6.50) K/uL Lymph # (Auto) (1.20-3.40) K/uL Grundy # (Auto) (0.11-0.59) K/uL Eos # (Auto) (0.00-0.50) K/uL Baso # (Auto) (0.00-0.20) K/uL Immature Gran # (Auto) (0.01-0.20) K/uL Toxic Granulation Polychromasia Target Cells Echinocytes Acanthocytes (Spur) Sodium 135 L (136-145) mmol/L Potassium 5.7 H D (3.5-5.1) mmol/L Chloride 104 (98-107) mmol/L Carbon Dioxide 20 L (21-32) mmol/L Anion Gap 11 (3-11) BUN 55 H D (6-23) mg/dl Creatinine 2.10 H D (0.6-1.2) mg/dl Est Cr Clr Drug Dosing 22.5 ml/min eGFR 26.48 BUN/Creatinine Ratio 26.2 H (10-20) Glucose 108 H (70-99(Fasting)) mg/dl POC Glucose 124 H 143 H (70-99) mg/dl Lactate (0.4-2.0) mmol/L Calcium 8.6 (8.6-10.3) mg/dl Phosphorus (2.5-4.9) mg/dl Magnesium 1.8 (1.7-2.4) mg/dl Total Bilirubin 0.5 (0.2-1.0) mg/dl AST 42 H (13-39) U/L ALT 21 (7-52) U/L Alkaline Phosphatase 311 H (34-104) U/L Total Protein 5.7 L (6.0-8.3) gm/dl Albumin 3.4 (3.4-5.0) gm/dl Globulin 2.3 L (2.5-4.0) gm/dl Albumin/Globulin Ratio 1.5 (0.9-2) Vitamin B12 (180-914) pg/ml Folate (>5.38) ng/ml Procalcitonin (0-0.5) ng/ml TSH (0.300-4.500) uIu/ml Random Cortisol mcg/dl Urine Color Urine Appearance (Clear) Urine pH (4.5-7.5) Ur Specific Blum (1.000-1.030) Urine Protein (Negative) Urine Glucose (UA) (Negative) Urine Ketones (Negative) Urine Blood (Negative) Urine Nitrite (Negative) Urine Bilirubin (Negative) Urine Urobilinogen (Negative) Ur Leukocyte Esterase (Negative) Urine WBC (Auto) (0-5) /hpf Urine RBC (Auto) (0-2) /hpf U Hyaline Cast (Auto) (0-2) /lpf U Epithel Cells (Auto) (0-2) /hpf Urine Bacteria (Auto) (None Seen) Nasal Screen MRSA (PCR) (Negative) Stool Occult Bld Scrn (Negative) Stl C. diff Tox B Gene (Neg) Misc Micro Test 10/16/24 10/16/24 10/15/24 Range/Units 11:35 07:46 21:17 WBC (4.8-10.8) K/ul RBC (4.20-5.40) M/uL Hgb (12.0-16.0) g/dl Hct (37.0-47.0) % MCV (80.0-100.0) fL MCH (25.0-34.0) pg MCHC (32.0-36.0) g/dL RDW Std Deviation (36.4-46.3) fL RDW Coeff of Maria Del Carmen (11.5-14.5) % Plt Count (130-400) K/uL MPV (9.4-12.4) fL Immature Gran % (Auto) % Neut % (Auto) % Lymph % (Auto) % Grundy % (Auto) % Eos % (Auto) % Baso % (Auto) % Neut # (Auto) (1.40-6.50) K/uL Lymph # (Auto) (1.20-3.40) K/uL Grundy # (Auto) (0.11-0.59) K/uL Eos # (Auto) (0.00-0.50) K/uL Baso # (Auto) (0.00-0.20) K/uL Immature Gran # (Auto) (0.01-0.20) K/uL Toxic Granulation Polychromasia Target Cells Echinocytes Acanthocytes (Spur) Sodium (136-145) mmol/L Potassium (3.5-5.1) mmol/L Chloride (98-107) mmol/L Carbon Dioxide (21-32) mmol/L Anion Gap (3-11) BUN (6-23) mg/dl Creatinine (0.6-1.2) mg/dl Est Cr Clr Drug Dosing ml/min eGFR BUN/Creatinine Ratio (10-20) Glucose (70-99(Fasting)) mg/dl POC Glucose 75 98 151 H (70-99) mg/dl Lactate (0.4-2.0) mmol/L Calcium (8.6-10.3) mg/dl Phosphorus (2.5-4.9) mg/dl Magnesium (1.7-2.4) mg/dl Total Bilirubin (0.2-1.0) mg/dl AST (13-39) U/L ALT (7-52) U/L Alkaline Phosphatase (34-104) U/L Total Protein (6.0-8.3) gm/dl Albumin (3.4-5.0) gm/dl Globulin (2.5-4.0) gm/dl Albumin/Globulin Ratio (0.9-2) Vitamin B12 (180-914) pg/ml Folate (>5.38) ng/ml Procalcitonin (0-0.5) ng/ml TSH (0.300-4.500) uIu/ml Random Cortisol mcg/dl Urine Color Urine Appearance (Clear) Urine pH (4.5-7.5) Ur Specific Blum (1.000-1.030) Urine Protein (Negative) Urine Glucose (UA) (Negative) Urine Ketones (Negative) Urine Blood (Negative) Urine Nitrite (Negative) Urine Bilirubin (Negative) Urine Urobilinogen (Negative) Ur Leukocyte Esterase (Negative) Urine WBC (Auto) (0-5) /hpf Urine RBC (Auto) (0-2) /hpf U Hyaline Cast (Auto) (0-2) /lpf U Epithel Cells (Auto) (0-2) /hpf Urine Bacteria (Auto) (None Seen) Nasal Screen MRSA (PCR) (Negative) Stool Occult Bld Scrn (Negative) Stl C. diff Tox B Gene (Neg) Misc Micro Test 10/15/24 10/15/24 10/15/24 Range/Units 16:43 11:36 07:35 WBC 9.53 (4.8-10.8) K/ul RBC 4.06 L (4.20-5.40) M/uL Hgb 9.6 L (12.0-16.0) g/dl Hct 31.6 L (37.0-47.0) % MCV 77.8 L (80.0-100.0) fL MCH 23.6 L (25.0-34.0) pg MCHC 30.4 L (32.0-36.0) g/dL RDW Std Deviation 51.4 H (36.4-46.3) fL RDW Coeff of Maria Del Carmen 18.4 H (11.5-14.5) % Plt Count 247 (130-400) K/uL MPV 9.9 (9.4-12.4) fL Immature Gran % (Auto) 0.3 % Neut % (Auto) 62.8 % Lymph % (Auto) 22.9 % Grundy % (Auto) 9.4 % Eos % (Auto) 4.3 % Baso % (Auto) 0.3 % Neut # (Auto) 5.98 (1.40-6.50) K/uL Lymph # (Auto) 2.18 (1.20-3.40) K/uL Grundy # (Auto) 0.90 H (0.11-0.59) K/uL Eos # (Auto) 0.41 (0.00-0.50) K/uL Baso # (Auto) 0.03 (0.00-0.20) K/uL Immature Gran # (Auto) 0.03 (0.01-0.20) K/uL Toxic Granulation Polychromasia Target Cells Echinocytes Acanthocytes (Spur) Sodium 138 (136-145) mmol/L Potassium 4.6 (3.5-5.1) mmol/L Chloride 100 (98-107) mmol/L Carbon Dioxide 35 H (21-32) mmol/L Anion Gap 3 (3-11) BUN 24 H (6-23) mg/dl Creatinine 0.58 L (0.6-1.2) mg/dl Est Cr Clr Drug Dosing 81.6 ml/min eGFR 103.54 BUN/Creatinine Ratio 41.4 H (10-20) Glucose 116 H (70-99(Fasting)) mg/dl POC Glucose 189 H 136 H (70-99) mg/dl Lactate (0.4-2.0) mmol/L Calcium 9.3 (8.6-10.3) mg/dl Phosphorus (2.5-4.9) mg/dl Magnesium (1.7-2.4) mg/dl Total Bilirubin (0.2-1.0) mg/dl AST (13-39) U/L ALT (7-52) U/L Alkaline Phosphatase (34-104) U/L Total Protein (6.0-8.3) gm/dl Albumin (3.4-5.0) gm/dl Globulin (2.5-4.0) gm/dl Albumin/Globulin Ratio (0.9-2) Vitamin B12 258 (180-914) pg/ml Folate 6.10 (>5.38) ng/ml Procalcitonin (0-0.5) ng/ml TSH 1.651 (0.300-4.500) uIu/ml Random Cortisol mcg/dl Urine Color Urine Appearance (Clear) Urine pH (4.5-7.5) Ur Specific Blum (1.000-1.030) Urine Protein (Negative) Urine Glucose (UA) (Negative) Urine Ketones (Negative) Urine Blood (Negative) Urine Nitrite (Negative) Urine Bilirubin (Negative) Urine Urobilinogen (Negative) Ur Leukocyte Esterase (Negative) Urine WBC (Auto) (0-5) /hpf Urine RBC (Auto) (0-2) /hpf U Hyaline Cast (Auto) (0-2) /lpf U Epithel Cells (Auto) (0-2) /hpf Urine Bacteria (Auto) (None Seen) Nasal Screen MRSA (PCR) (Negative) Stool Occult Bld Scrn (Negative) Stl C. diff Tox B Gene (Neg) Misc Micro Test 10/15/24 10/14/24 10/14/24 Range/Units 06:25 20:25 16:50 WBC (4.8-10.8) K/ul RBC (4.20-5.40) M/uL Hgb (12.0-16.0) g/dl Hct (37.0-47.0) % MCV (80.0-100.0) fL MCH (25.0-34.0) pg MCHC (32.0-36.0) g/dL RDW Std Deviation (36.4-46.3) fL RDW Coeff of Maria Del Carmen (11.5-14.5) % Plt Count (130-400) K/uL MPV (9.4-12.4) fL Immature Gran % (Auto) % Neut % (Auto) % Lymph % (Auto) % [place]undy % (Auto) % Eos % (Auto) % Baso % (Auto) % Neut # (Auto) (1.40-6.50) K/uL Lymph # (Auto) (1.20-3.40) K/uL Grundy # (Auto) (0.11-0.59) K/uL Eos # (Auto) (0.00-0.50) K/uL Baso # (Auto) (0.00-0.20) K/uL Immature Gran # (Auto) (0.01-0.20) K/uL Toxic Granulation Polychromasia Target Cells Echinocytes Acanthocytes (Spur) Sodium (136-145) mmol/L Potassium (3.5-5.1) mmol/L Chloride (98-107) mmol/L Carbon Dioxide (21-32) mmol/L Anion Gap (3-11) BUN (6-23) mg/dl Creatinine (0.6-1.2) mg/dl Est Cr Clr Drug Dosing ml/min eGFR BUN/Creatinine Ratio (10-20) Glucose (70-99(Fasting)) mg/dl POC Glucose 131 H 168 H 120 H (70-99) mg/dl Lactate (0.4-2.0) mmol/L Calcium (8.6-10.3) mg/dl Phosphorus (2.5-4.9) mg/dl Magnesium (1.7-2.4) mg/dl Total Bilirubin (0.2-1.0) mg/dl AST (13-39) U/L ALT (7-52) U/L Alkaline Phosphatase (34-104) U/L Total Protein (6.0-8.3) gm/dl Albumin (3.4-5.0) gm/dl Globulin (2.5-4.0) gm/dl Albumin/Globulin Ratio (0.9-2) Vitamin B12 (180-914) pg/ml Folate (>5.38) ng/ml Procalcitonin (0-0.5) ng/ml TSH (0.300-4.500) uIu/ml Random Cortisol mcg/dl Urine Color Urine Appearance (Clear) Urine pH (4.5-7.5) Ur Specific Blum (1.000-1.030) Urine Protein (Negative) Urine Glucose (UA) (Negative) Urine Ketones (Negative) Urine Blood (Negative) Urine Nitrite (Negative) Urine Bilirubin (Negative) Urine Urobilinogen (Negative) Ur Leukocyte Esterase (Negative) Urine WBC (Auto) (0-5) /hpf Urine RBC (Auto) (0-2) /hpf U Hyaline Cast (Auto) (0-2) /lpf U Epithel Cells (Auto) (0-2) /hpf Urine Bacteria (Auto) (None Seen) Nasal Screen MRSA (PCR) (Negative) Stool Occult Bld Scrn (Negative) Stl C. diff Tox B Gene (Neg) Misc Micro Test 10/14/24 10/14/24 10/14/24 Range/Units 11:41 10:05 05:54 WBC 8.99 (4.8-10.8) K/ul RBC 4.08 L (4.20-5.40) M/uL Hgb 9.6 L (12.0-16.0) g/dl Hct 31.6 L (37.0-47.0) % MCV 77.5 L (80.0-100.0) fL MCH 23.5 L (25.0-34.0) pg MCHC 30.4 L (32.0-36.0) g/dL RDW Std Deviation 51.5 H (36.4-46.3) fL RDW Coeff of Maria Del Carmen 18.4 H (11.5-14.5) % Plt Count 254 (130-400) K/uL MPV 10.2 (9.4-12.4) fL Immature Gran % (Auto) 0.3 % Neut % (Auto) 63.0 % Lymph % (Auto) 20.4 % Grundy % (Auto) 11.8 % Eos % (Auto) 3.9 % Baso % (Auto) 0.6 % Neut # (Auto) 5.67 (1.40-6.50) K/uL Lymph # (Auto) 1.83 (1.20-3.40) K/uL Grundy # (Auto) 1.06 H (0.11-0.59) K/uL Eos # (Auto) 0.35 (0.00-0.50) K/uL Baso # (Auto) 0.05 (0.00-0.20) K/uL Immature Gran # (Auto) 0.03 (0.01-0.20) K/uL Toxic Granulation Polychromasia Target Cells Echinocytes Acanthocytes (Spur) Sodium 137 (136-145) mmol/L Potassium 4.6 (3.5-5.1) mmol/L Chloride 102 (98-107) mmol/L Carbon Dioxide 32 (21-32) mmol/L Anion Gap 3 (3-11) BUN 30 H (6-23) mg/dl Creatinine 0.58 L (0.6-1.2) mg/dl Est Cr Clr Drug Dosing 81.6 ml/min eGFR 103.54 BUN/Creatinine Ratio 51.7 H (10-20) Glucose 142 H (70-99(Fasting)) mg/dl POC Glucose 151 H 139 H (70-99) mg/dl Lactate (0.4-2.0) mmol/L Calcium 9.6 (8.6-10.3) mg/dl Phosphorus (2.5-4.9) mg/dl Magnesium 1.7 (1.7-2.4) mg/dl Total Bilirubin (0.2-1.0) mg/dl AST (13-39) U/L ALT (7-52) U/L Alkaline Phosphatase (34-104) U/L Total Protein (6.0-8.3) gm/dl Albumin (3.4-5.0) gm/dl Globulin (2.5-4.0) gm/dl Albumin/Globulin Ratio (0.9-2) Vitamin B12 (180-914) pg/ml Folate (>5.38) ng/ml Procalcitonin (0-0.5) ng/ml TSH (0.300-4.500) uIu/ml Random Cortisol mcg/dl Urine Color Urine Appearance (Clear) Urine pH (4.5-7.5) Ur Specific Blum (1.000-1.030) Urine Protein (Negative) Urine Glucose (UA) (Negative) Urine Ketones (Negative) Urine Blood (Negative) Urine Nitrite (Negative) Urine Bilirubin (Negative) Urine Urobilinogen (Negative) Ur Leukocyte Esterase (Negative) Urine WBC (Auto) (0-5) /hpf Urine RBC (Auto) (0-2) /hpf U Hyaline Cast (Auto) (0-2) /lpf U Epithel Cells (Auto) (0-2) /hpf Urine Bacteria (Auto) (None Seen) Nasal Screen MRSA (PCR) (Negative) Stool Occult Bld Scrn (Negative) Stl C. diff Tox B Gene (Neg) Misc Micro Test 10/13/24 10/13/24 10/13/24 Range/Units 20:40 16:42 11:50 WBC (4.8-10.8) K/ul RBC (4.20-5.40) M/uL Hgb (12.0-16.0) g/dl Hct (37.0-47.0) % MCV (80.0-100.0) fL MCH (25.0-34.0) pg MCHC (32.0-36.0) g/dL RDW Std Deviation (36.4-46.3) fL RDW Coeff of Maria Del Carmen (11.5-14.5) % Plt Count (130-400) K/uL MPV (9.4-12.4) fL Immature Gran % (Auto) % Neut % (Auto) % Lymph % (Auto) % Grundy % (Auto) % Eos % (Auto) % Baso % (Auto) % Neut # (Auto) (1.40-6.50) K/uL Lymph # (Auto) (1.20-3.40) K/uL Grundy # (Auto) (0.11-0.59) K/uL Eos # (Auto) (0.00-0.50) K/uL Baso # (Auto) (0.00-0.20) K/uL Immature Gran # (Auto) (0.01-0.20) K/uL Toxic Granulation Polychromasia Target Cells Echinocytes Acanthocytes (Spur) Sodium (136-145) mmol/L Potassium (3.5-5.1) mmol/L Chloride (98-107) mmol/L Carbon Dioxide (21-32) mmol/L Anion Gap (3-11) BUN (6-23) mg/dl Creatinine (0.6-1.2) mg/dl Est Cr Clr Drug Dosing ml/min eGFR BUN/Creatinine Ratio (10-20) Glucose (70-99(Fasting)) mg/dl POC Glucose 133 H 156 H 80 (70-99) mg/dl Lactate (0.4-2.0) mmol/L Calcium (8.6-10.3) mg/dl Phosphorus (2.5-4.9) mg/dl Magnesium (1.7-2.4) mg/dl Total Bilirubin (0.2-1.0) mg/dl AST (13-39) U/L ALT (7-52) U/L Alkaline Phosphatase (34-104) U/L Total Protein (6.0-8.3) gm/dl Albumin (3.4-5.0) gm/dl Globulin (2.5-4.0) gm/dl Albumin/Globulin Ratio (0.9-2) Vitamin B12 (180-914) pg/ml Folate (>5.38) ng/ml Procalcitonin (0-0.5) ng/ml TSH (0.300-4.500) uIu/ml Random Cortisol mcg/dl Urine Color Urine Appearance (Clear) Urine pH (4.5-7.5) Ur Specific Blum (1.000-1.030) Urine Protein (Negative) Urine Glucose (UA) (Negative) Urine Ketones (Negative) Urine Blood (Negative) Urine Nitrite (Negative) Urine Bilirubin (Negative) Urine Urobilinogen (Negative) Ur Leukocyte Esterase (Negative) Urine WBC (Auto) (0-5) /hpf Urine RBC (Auto) (0-2) /hpf U Hyaline Cast (Auto) (0-2) /lpf U Epithel Cells (Auto) (0-2) /hpf Urine Bacteria (Auto) (None Seen) Nasal Screen MRSA (PCR) (Negative) Stool Occult Bld Scrn (Negative) Stl C. diff Tox B Gene (Neg) Misc Micro Test Diagnostic Findings Lower Extremity CTA 10/01/24 14:21 CT ANGIOGRAPHY OF THE LEFT LOWER EXTREMITY CLINICAL HISTORY: Groin pain down to foot, hx of PAD. COMPARISON STUDY: Left lower extremity arterial Doppler ultrasound December 30, 2023. CTA with runoff July 14, 2021. CTA of the abdomen and pelvis July 01, 2024. TECHNIQUE: Helical axial images of the mid to lower abdomen, pelvis and left lower extremity were obtained during arterial phase following intravenous injection 120 cc of Optiray 320 IV. Sagittal and coronal reconstructions were viewed as well as maximal intensity projections on an independent 3-D workstation. Automated exposure control was utilized for the study. A dose lowering technique was utilized adhering to the principles of ALARA. FINDINGS: Visualized portions of the liver are unremarkable on arterial phase exam. There is no biliary ductal dilatation status post cholecystectomy. Spleen, adrenal glands and pancreas are unremarkable. There is no evidence for a bowel obstruction. The caliber and wall thickness of small and large bowel are normal. There are postoperative findings within the spine. There is no abdominal lymphadenopathy. No fluid collections are present. Postoperative findings con sistent with right below-knee amputation. There is extensive plaque with multifocal stenoses within the right lower extremity vasculature. There is extensive atherosclerotic plaque within the abdominal aorta. No abdominal aortic aneurysm is present. Branch vessels are patent. There is extensive plaque within the left lower extremity vasculature. The left common iliac artery is patent. There is mild stenosis of the left external iliac artery. There is moderate stenosis of the left common femoral artery. There are moderate multifocal stenoses within the left superficial femoral artery. The lef t popliteal artery is patent. There is occlusion of the proximal left anterior tibial artery with distal reconstitution. The left dorsalis pedis is patent. The left peroneal artery is patent to the level of the syndesmosis. Multifocal stenoses of the left posterior tibial artery are present with occlusion and distal reconstitution. There is trace flow within the distal left posterior tibial artery. IMPRESSION: 1. Extensive atherosclerotic plaque within the left lower extremity. 2. Moderate multifocal stenoses within the left superficial femoral artery. 3. Occlusion of the proximal left anterior tibial artery which is new since CT of July 14, 2021. Distal reconstitution with patent left dorsalis pedis. 4. Occlusion of the distal left posterior tibial artery with distal recons titution. Overall, significantly diminished flow within the left calf vessels. 5. Extensive plaque within the abdominal aorta. No aneurysm or stenosis within the abdominal aorta. Patent left common iliac artery. 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 6. Status post right below knee amputation. ACT 112: Negative or not required by law. Electronically signed by: Wilver Powell M.D. 10/01/2024 4:38 PM Ankle Brachial Index 10/02/24 13:56 Clinical history: Left foot pain. 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 A right NATHAN is therefore not possible The left NATHAN is diminished at 0.82. Blood flow could not be detected within the left toes Impression: 1. Diminished left NATHAN at 0.82. This is indicative of mild to moderate severity peripheral arterial disease 2. Lack of detectable blood flow within the left toes, which could be due to distal arterial occlusion Electronically signed by Jose Jones 10-02-2024 4:17 PM Axilla US 10/10/24 14:05 US axilla LT CLINICAL HISTORY: mass,assess for abscess vs lymphadenopathy COMPARISON STUDY: Chest CT of 06/30/2024. FINDINGS: At the site of palpable complaint at the left axilla there is a 1.6 cm greatest dimension wider than tall hypoechoic finding in the superficial soft tissues just deep to the skin with possible peripheral vascular flow. There is a similar nearby superficial finding measuring 8 mm. There is an adjacent area of edematous appearing tissue measuring approximately 5 cm greatest dimension. No abscess seen. IMPRESSION: 1. Findings at the left axilla are nonspecific. There is a 5 cm area of edematous appearing tissue suggesting cellulitis. 2. Nonspecific superficial findings could represent reactive lymph nodes or inflamed sebaceous cysts. Clinical follow-up is recommended. If the clinical findings do not improve, follow-up imaging and consideration of biopsy would be suggested. ACT 112: Positive. There are findings on this exam that require communication between the performing entity and the patient following Patient Test Result Information Act ([place] Act 112) guidelines. Electronically signed by: Anil Gunter M.D. 10/10/2024 4:08 PM Axilla US 10/13/24 15:25 EXAM: US axilla LT CLINICAL HISTORY: US left underarm area of redness to eval abscess. TECHNIQUE: Ultrasound of left axilla performed using a linear high frequency probe and multiple images obtained. COMPARISON: None. FINDINGS: 2 complex areas are seen in the left axilla, measuring 1.7 x 1.2 x 0.5 cm and 0.6 x 0.3 x 0.8 cm. These are associated with adjacent edema and thickening of the fat. Multiple internal Echoes and debris noted Left axilla 5.3 x .7 x 2.0 cm area of redness IMPRESSION: 1. The above-mentioned finding could represent a small abscess/inflamed lymph node with adjacent inflamed fat. 2. Advised clinical correlation or Further evaluation with CT can be obtained Electronically signed by Mika De Luna 10-13-2024 6:26 PM Abdomen/Pelvis CT 10/17/24 20:20 Exam(s): CT ABDOMEN + PELVIS Without Contrast EXAM: CT Abdomen and Pelvis Without Intravenous Contrast CLINICAL HISTORY: Abdominal Pain. TECHNIQUE: Axial computed tomography images of the abdomen and pelvis without intravenous contrast. CTDI is 20.15 mGy and DLP is 1051.01 mGy-cm. Automated exposure control was utilized for the study. A dose lowering technique was utilized adhering to the principles of ALARA. COMPARISON: CT abdomen and pelvis 06/02/2024 FINDINGS: Lung bases: Bibasilar airspace opacities could represent atelectasis, however cannot exclude atypical infection or aspiration given the appearance. ABDOMEN: Liver: Unremarkable. Gallbladder and bile ducts: Cholecystectomy. No ductal dilation. Pancreas: Unremarkable. No ductal dilation. Spleen: Unremarkable. No splenomegaly. Adrenals: Unremarkable. No mass. Kidneys and ureters: Nonobstructing punctate bilateral renal calculi. No hydronephrosis of either kidney. Stomach and bowel: The stomach is distended with significant debris, question thickening of the wall the distal stomach. Cannot exclude gastric outlet obstruction or bezoar. Fluid distended small bowel without transition point to suggest obstruction. Marked nonspecific thickening of the wall the rectosigmoid colon. Significant stool throughout the colon is concerning for constipation. PELVIS: Appendix: No findings to suggest acute appendicitis. Bladder: Unremarkable. No stones. Reproductive: Unremarkable as visualized. ABDOMEN and PELVIS: Intraperitoneal space: Mild free fluid in the abdomen and pelvis is nonspecific. No free air. Bones/joints: There are degenerative changes of the spine. No acute fracture. Grade 1 anterolisthesis of L4 on L5. Posterior fusion of L5 and S1 are noted. No dislocation. Soft tissues: Unremarkable. Vasculature: Mild atherosclerosis. No abdominal aortic aneurysm. Lymph nodes: Unremarkable. No enlarged lymph nodes. IMPRESSION: 1. Marked nonspecific thickening of the wall the rectosigmoid colon. This could be infectious, inflammatory or neoplastic. There is significant stool throughout the remainder of the colon this could represent constipation, however cannot exclude a degree of low-grade colonic obstruction. 2. Fluid distended small bowel without transition point to suggest obstruction. This could represent enteritis or ileus. 3. The stomach is distended with significant debris, question thickening of the wall the distal stomach. Cannot exclude gastric outlet obstruction or bezoar. 4. Nonobstructing punctate bilateral renal calculi. No hydronephrosis of either kidney. 5. Mild free fluid in the abdomen and pelvis is nonspecific. 6. Bibasilar airspace opacities could represent atelectasis, however cannot exclude atypical infection or aspiration given the appearance. Electronically signed by: Kandace Taylor MD 10/17/24 23:18 PM KUB X-Ray 10/18/24 06:04 EXAM: XR KUB/Abdomen 1 view CLINICAL HISTORY: NG tube insertion. TECHNIQUE: X-ray images of the abdomen were obtained in supine and upright positions. COMPARISON: 06/26/2023 FINDINGS: Gas Pattern: Still noted gaseous distention of bowel loops. Soft Tissues: NGT was applied with its tip noted in the stomach. Soft tissues of the abdomen appear normal without evidence of masses or calcifications. Still noted clips applied at right hypochondria region. IMPRESSION: 1. NGT was applied with its tip noted in the stomach. 2. No evidence of bowel obstruction or pneumoperitoneum. 3. No interval time changes as compared with a similar study dated in 2022. Electronically signed by Jorge West 10-18-2024 07:34 AM Chest X-Ray 10/18/24 06:34 EXAM: XR chest 1V portable CLINICAL HISTORY: Hypoxia TECHNIQUE: An X-ray image of the chest is obtained in AP projection. COMPARISON: 06/27/2024 CR FINDINGS: Pulmonary Parenchyma: Prominent hilar shadows and bronchovascular markings at both lung cardozo denoting congestive changes. Obliterated both costopherenic recesses, which could suggest bilateral pleural effusion. Bilateral lower lung zones infiltrates are seen. No evidence of consolidation, collapse, or focal opacities. No pulmonary nodules are identified. No evidence of pleural effusion or pleural thickening. NGT is seen in place at the region of the stomach. Heart and Mediastinum: Apparently prominent cardiac shadow in AP view. No mediastinal widening or masses. No hilar or mediastinal lymphadenopathy. Bony Thorax: Bony thorax appears intact without fractures or deformities. Soft Tissues: Soft tissues overlying the chest wall are unremarkable. IMPRESSION: 1. Prominent hilar shadows and bronchovascular markings at both lung cardozo denoting congestive changes. Stable. 2. Obliterated both costopherenic recesses, which could suggest bilateral pleural effusion. Interval new 3. Bilateral lower lung zones infiltrates are seen more at left side. Progressive. 4. NGT is seen in place at the region of the stomach. Interval new Electronically signed by Jorge West 10-18-2024 07:43 AM Chest X-Ray 10/18/24 09:09 XR chest 1V portable CLINICAL HISTORY: line placement COMPARISON STUDY: 10/18/2024 FINDINGS: Nasogastric tube tip is off the field of view inferiorly. There is stable mild cardiomegaly without pulmonary vascular congestion. Inspiration is shallow. There is stable stranding opacity in the lung bases with partial obscuration of the diaphragm. No pneumothorax. There is an interval right central catheter with the tip at the cavoatrial junction. IMPRESSION: No pneumothorax. Otherwise as described. ACT 112: Negative or not required by law. Electronically signed by: Anil Gunter M.D. 10/18/2024 10:57 AM KUB X-Ray 10/19/24 08:50 KUB HISTORY: bowel obstruction COMPARISON STUDY: 10/18/2024 FINDINGS: Nasogastric tube tip is in the mid body of the stomach. There is mild colonic distention and there are multiple mildly distended small bowel loops at the central abdomen and pelvis, stable. No gross free air. There is moderate retained stool. IMPRESSION: Stable mild bowel distention. ACT 112: Negative or not required by law. The above report was generated using voice recognition software. It may contain grammatical, syntax or spelling errors. Electronically signed by: Anil Gunter M.D. 10/19/2024 9:03 AM PG Care Time/CCT Total # of Minutes Spent Total Time Spent: 60 Total Time Spent with Patient: Total time spent is greater than 50% in coordination of care (as documented) at patient's floor/unit and/or counseling patient: Coding [place] [address] SUB INP/OBS CARE 50MIN Patient Type Established Medical Decision Making High Complexity Diagnoses Chronic pain syndrome G89.4 Chronic pain type: chronic pain syndrome Palliative care by specialist Z51.5 (1) Chronic pain Chronic pain type: chronic pain syndrome Qualified Code(s): G89.4 - Chronic pain syndrome
[2024-10-20] MEDS: POTASSIUM PHOSPHATE 30 MMOL in SODIUM CHLORIDE 0.9% 500 ML IV ONE (11:39)
--- NOTE | 2024-10-20 11:48 | Gastroenterology Progress Note ---
Date of Service October 20, 2024 Assessment & Plan (1) Abdominal pain: (2) Anemia: (3) Heme positive stool: Plan Patient is having ongoing issues with chronic abdominal pain. she is still anemic with history of heme positive stool but does not seem to be having obvious GI bleeding and hgb is stable. Will continue to monitor labs. Will discuss further with Dr. Mensah about further work up. Admission and Anticipated Discharge Date Admission Date: October 01, 2024 Supervising Physician Co-Signing Physician Notes I personally saw and examined the patient. I have reviewed the chart and agree with the documentation provided by the MUSICIAN [employer] including discussion about the assessment, treatment and plan. Briefly, her hemoglobin is stable and she has brown stool that is heme positive. I agree that she needs a repeat colonoscopy plus or minus EGD. However, at this time, with her gastroparesis mild ileus and colonic dysmotility with opioid-induced constipation, it is going to be very difficult to prep her. She pretty much refused the preparation to me. At this point I would treat her supportively as you are doing. Have her walk. As far as her chronic abdominal pain is concerned, there is not a great GI source for this currently. I would suggest Elavil low-dose and try to wean her off of narcotics as this slows her bowels down as well as makes her gastroparesis worse. Subjective 59 year old female with history of T2DM, PAD, chronic pain, anxiety, depression, gastroparesis and others below admitted through the ED 10/01/24 w/ chronic pain - GI was asked to evaluate 10/17/[address] heme positive [address]ools. CT 10/17 shown marked nonspecific thickening of the wall the rectosigmoid colon. This could be infectious, inflammatory or neoplastic. There is significant stool throughout the remainder of the colon this could represent constipation, however cannot exclude a degree of low-grade colonic obstruction. 2. Fluid distended small bowel without transition point to suggest obstruction. This could represent enteritis or ileus. 3. The stomach is distended with significant debris, question thickening of the wall the distal stomach. Cannot exclude gastric outlet obstruction or bezoar. However after NG tube placement she was reportedly symptomatically improved. Now NG is removed and she is moving her bowels, but she does complain of ongoing abdominal pain that she tells me ahs been unchanged. she reports that it is 10/10. her 3/10 hgb is stable at 8.4 (previously 8.2). no signs of obvious GI bleeding. EGD 05/2024 LA-D esophagitis and gastritis. Review of Systems Review of Systems: All systems reviewed & are unremarkable except as noted in HPI & below Physical Exam Constitutional: WD/WN, vitals as above Respiratory: normal respiratory effort, lungs clear to auscultation Cardiovascular: Rate/Rhythm: regular rate and regular rhythm Gastrointestinal (Abdomen): diffuse tenderness to palpation. no guarding, soft. normal bowel sounds. Psychiatric: Orientation: alert and oriented x 3 Results & Data Results & Data Vital Signs (Past 12 Hours) Vital Signs Temp Pulse Resp BP Pulse Ox O2 Del Method O2 Flow Rate 10/20/24 07:32 98.2 F 103 H 18 167/70 H 96 Nasal Cannula 3.0 Coding Level of Care Code 27852 SUB INP/OBS CARE 2/35MIN Diagnoses Abdominal pain R10.9 Anemia D64.9 Heme positive stool R19.5
[2024-10-20] MEDS: oxyCODONE HCL IR 5 MG TAB (IMMEDIATE RELEASE) PO PRN (12:24)
[2024-10-21] MEDS: oxyCODONE HCL IR 5 MG TAB (IMMEDIATE RELEASE) PO PRN (03:54)
[2024-10-21 07:33] LABS: BUN Creatinine Ratio 45.7 (10-20); Calcium 7.3 mg/dl (8.6-10.3); Creatinine Clr Calc Pharmacy 151.5 ml/min; Magnesium 1.8 mg/dl (1.7-2.4); Phosphorus 2.1 mg/dl (2.5-4.9); Potassium 3.3 mmol/L (3.5-5.1)
--- NOTE | 2024-10-21 10:03 | Hospitalist Progress Note ---
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 The pain is not consistent with ischemia, she has been seen by vascular medicine Dr Lin in December 2023 and again this admission for similar pain and not suspected to be due to ischemia and she has good dorsalis pedis pulse on palpation. Her left foot is cool but with good capillary refill. CTA 10/01/24 shows some progression of PAD To LLE. Patient has failed different long and short acting opioids to include MS Contin, Morphine, and methadone, Fentanyl patch caused hallucinations Etiology is most likely neuropathic and ischemic pain with parts of this likely being hyperalgesia. Thus far she is tolerating fentanyl patch without any hallucinations. Reports the 40 mg of oxycodone is making her too tired -Palliative Med managing pain control -increased fentanyl patch to 100 mcg on 10/15-nurse navigator working on prior authorization to see if this is affordable for her -increased Lyrica to 150mg tid, continue duloxetine same dose -increased oxycodone to 40mg po q4h prn breakthrough pain on 10/14 but now decreasing back to 30 mg on 10/16 -continue dilaudid IV but decrease dose to 0.2 Mg IV every 4 hours prn breakthro ugh pain if oxy not effective -Patient agreeable to referral to see a therapist on an intensive basis as an outpatient-psychiatric behavioral health liaison is consulted to assist with this -fentanyl currently on hold 2nd to hypotension (2) Abdominal pain: Plan: -Pt with CT showing Marked nonspecific thickening of the wall the rectosigmoid colon. This could be infectious, inflammatory or neoplastic. There is significant stool throughout the remainder of the colon this could represent constipation, however cannot exclude a degree of low-grade colonic obstruction. -IVF -abx daptomycin/levaquin -GI consult appreciated, recommending endoscopy once acute abdominal issues resolved. -surgery consult appreciated -NGT d/c'd -on clear liquids, advance diet as per surgery -holding narcotics (3) Abscess: Plan: developed acute onset of painful swollen lumps in left axilla on 10/10. Suspected lymphadenitis initially and then formed a fluctuant mass in left axilla consistent with abscess/phlegmon. Has been on Daptomycin since 10/10 and Levaquin since 10/12. Leukocytosis improved, remains afebrile. Fluctuant area is smaller in size on 10/14. Surgery held off on I&D for now. -continue Dapto and Levaquin x 10 day course but can convert to po levofloxacin and doxycycline meds if ready for discharge otherwise -consult Gen Surgery appreciated-no surgery indicated -Continue to monitor for improvement-slowly improving but will reassess for need for incision and drainage each day -continue pain control as above (4) PAD (peripheral artery disease): Plan: with a h/o right BKA, left toe amputations, multiple angioplasties. Seen by Vascular Med here and nothing acute that needs intervention -continue on aspirin and plavix -added pentoxifylline to try to improve circulation in case her pain is from any ischemia. (5) Anemia: Plan: hemoglobin slowly trending down to 8.4, microcytic. Transferrin saturation low at 8%, ferritin low at 24. No evidence of bleeding from anywhere obvious. B12 low normal at 258, folate normal at 6, TSH normal. She is intolerant to Venofer in the past-caused hypertension. She had tolerated Ferrlecit in the past-I gave her dose on 10/16 and it caused her nausea, belching, and "shakiness." -Will cautiously start oral iron supplementation instead now that she is moving her bowels but does have a history of opioid-induced constipation -started B12 1000 mcg po qAM -Follow CBC -Consider outpatient GI workup after discharge for occult GI blood loss Plan This patient is a 59-year-old female with a history of chronic pain, significant PAD s/p right BKA and amputations of her left toes, DM2 with neuropathy, who has been intermittently in our hospital with paroxysms of uncontrolled pain. Patient has seen pain management and multiple other specialties. She has at times had vascular procedures to improve blood flow without great improvement in her pain. Patient has failed an ilio inguinal nerve block in the past. She presents once again with her chronic left and right groin pain requiring parenteral opiate therapy - Disposition - continued stay med/surg while weaning off of IV Dilaudid and monitoring left axillary abscess/cellulitis-Nurse Navigator will need to do a prior auth for Fentanyl patch-pending Admission and Anticipated Discharge Date Admission Date: October 01, 2024 Subjective No events overnight. Pt resting in bed. Complaining of less pain. Review of Systems Review of Systems: CONST: Negative for fever, body aches and chills. HENT: Negative for neck pain/stiffness, headache, congestion, sore throat, swelling. EYES: Negative for discharge/pain or vision changes. RESP: Negative for cough/hemoptysis and shortness of breath. CV: Negative chest pain, difficulty breathing, palpitations. ABD: Negative pain, nausea, vomiting. : Negative increase frequency, dysuria, blood in urine or stool. MUSC: Negative for muscle aches, edema. SKIN: Negative rash, lesions/sores. NEURO: Negative headache, dizziness, weakness. Physical Exam Physical Exam: GENERAL APPEARANCE NAD, activity normal for age, well developed/ well nourished, no cyanosis, pallor, or diaphoresis. EYES lids/conjunctiva normal. EARS/NOSE/THROAT Mucous membranes moist, nares normal, lips/teeth normal uvula midline without oral pharyngeal erythema, exudate or swelling TMs normal bilaterally. No lymphangitis/lymphedema. HEAD/NECK normocephalic atraumatic, no facial trauma, neck is supple. RESPIRATORY respiratory effort normal, speaks in full sentences, no tripod position, no accessory muscle use. Lungs clear to auscultation without rhonchi, wheezes, rales CARDIAC Regular rate and rhythm, no edema. ABDOMINAL Soft, ND/NT. No evidence of fluid wave. No pulsatile masses on exam, rebound tenderness, Tran sign or pain over Mcburney's point. MUSCLES/EXTREMITIES No abnormal range of motion, no swelling. SKIN Warm, pink and dry. No rashes, dermatoses, petechiae or lesions. NEUROLOGICAL Speech is clear and appropriate. Normal level of consciousness. Gait and coordination are normal. 5/5 strength in all extremities. PSYCH Normal mood and affect. Judgement/competence is appropriate Results & Data Results & Data Vital Signs (Past 12 Hours) Vital Signs Temp Pulse Resp BP Pulse Ox O2 Del Method O2 Flow Rate 10/21/24 07:15 37.2 C 110 H 16 176/71 H 93 Nasal Cannula 4 10/20/24 22:28 36.3 C L 93 H 16 166/70 H 97 Room Air 10/20/24 22:25 Nasal Cannula 4 PG Care Time/CCT Total # of Minutes Spent Total Time Spent with Patient: Total time spent is greater than 50% in coordination of care (as documented) at patient's floor/unit and/or counseling patient: Coding Level of Care Code 50762 SUB INP/OBS CARE MIN Diagnoses Chronic pain G89.29 Chronic pain type: other chronic pain Abdominal pain R10.9 Abscess L02.91 PAD (peripheral artery disease) I73.9 Anemia D64.9 (1) Chronic pain Chronic pain type: other chronic pain Qualified Code(s): G89.29 - Other chronic pain
--- NOTE | 2024-10-21 12:24 | Surgery Progress Note ---
Date of Service October 21, 2024 Assessment & Plan (1) Rectosigmoiditis: Plan: Clinically improving. No indications for surgical intervention. Needs colonoscopy which apparently they are planning as outpatient. Will follow along from the periphery. Please call us if any concerns or questions (2) Abdominal pain: (3) SRIKANTH (acute kidney injury): (4) Heme positive stool: (5) Therapeutic opioid-induced constipation (OIC): (6) Chronic generalized pain: Admission and Anticipated Discharge Date Admission Date: October 01, 2024 Subjective Patient seen. Considerably better than when she came into the hospital although continuing to have pelvic and left lower quadrant discomfort. Physical Exam Physical Exam: Alert and oriented no acute distress Abdomen is soft. Very mild suprapubic tenderness to deep palpation. No peritonitis Results & Data Vital Signs (Past 12 Hours) Vital Signs Temp Pulse Resp BP Pulse Ox O2 Del Method O2 Flow Rate 10/21/24 10:42 102 H 137/57 L 10/21/24 07:15 37.2 C 110 H 16 176/71 H 93 Nasal Cannula 4 PG Care Time/CCT Total # of Minutes Spent Total Time Spent with Patient: Total time spent is greater than 50% in coordination of care (as documented) at patient's floor/unit and/or counseling patient: Coding Level of Care Code 47591 SUB INP/OBS CARE 09/06MIN Diagnoses Rectosigmoiditis K63.89 Abdominal pain R10.9 SRIKANTH (acute kidney injury) N17.9 Heme positive stool R19.5 Therapeutic opioid-induced constipation (OIC) K59.03; T40.2X5A Chronic generalized pain R52; G89.29
--- NOTE | 2024-10-21 19:24 | Communication Note ---
Date of Service: October 21, 2024 Palliative Med Brief Note Chart/MAR reviewed Oxy 40mg x4 doses = 160mg Oxy 20mg x 1 dose = 20mg total daily oxycodone dose = 160mg For now, no changes. Her [employer] baseline Oxycodone daily is 160-200mg. Do not use IV opioids if at all possible She is back on her baseline opioid regimen She has refused scope d/t refusing prep She will be followed by her PCP for chronic pain mgt, Dr Reji Vernon. TS 15min Pt not seen/she was unavailable No Charge submitted Thank you for allowing us to participate in the ongoing care of this patient. Please page with any additional concerns. Ree Driscoll DNP Director, Palliative Medicine
[2024-10-21] MEDS: PANTOprazole 40 MG TAB PO SCH (21:00)
[2024-10-22 07:33] LABS: BUN Creatinine Ratio 40.6 (10-20); Calcium 7.2 mg/dl (8.6-10.3); Creatinine Clr Calc Pharmacy 165.7 ml/min; Magnesium 1.8 mg/dl (1.7-2.4); Phosphorus 1.8 mg/dl (2.5-4.9); Potassium 3.5 mmol/L (3.5-5.1)
--- NOTE | 2024-10-22 10:41 | Hospitalist Progress Note ---
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 The pain is not consistent with ischemia, she has been seen by vascular medicine Dr Lin in December 2023 and again this admission for similar pain and not suspected to be due to ischemia and she has good dorsalis pedis pulse on palpation. Her left foot is cool but with good capillary refill. CTA 10/01/24 shows some progression of PAD To LLE. Patient has failed different long and short acting opioids to include MS Contin, Morphine, and methadone, Fentanyl patch caused hallucinations Etiology is most likely neuropathic and ischemic pain with parts of this likely being hyperalgesia. Thus far she is tolerating fentanyl patch without any hallucinations. Reports the 40 mg of oxycodone is making her too tired -Palliative Med managing pain control -increased fentanyl patch to 100 mcg on 10/15-nurse navigator working on prior authorization to see if this is affordable for her -increased Lyrica to 150mg tid, continue duloxetine same dose -increased oxycodone to 40mg po q4h prn breakthrough pain on 10/14 but now decreasing back to 30 mg on 10/16 -continue dilaudid IV but decrease dose to 0.2 Mg IV every 4 hours prn breakthro ugh pain if oxy not effective -Patient agreeable to referral to see a therapist on an intensive basis as an outpatient-psychiatric behavioral health liaison is consulted to assist with this -fentanyl currently on hold 2nd to hypotension -oxycodone restarted. (2) Abdominal pain: Plan: -Pt with CT showing Marked nonspecific thickening of the wall the rectosigmoid colon. This could be infectious, inflammatory or neoplastic. There is significant stool throughout the remainder of the colon this could represent constipation, however cannot exclude a degree of low-grade colonic obstruction. -IVF -abx zosyn -GI consult appreciated, recommending endoscopy once acute abdominal issues resolved. -surgery consult appreciated -NGT d/c'd -on clear liquids, advance diet as per surgery -holding IV narcotics (3) Abscess: Plan: developed acute onset of painful swollen lumps in left axilla on 10/10. Suspected lymphadenitis initially and then formed a fluctuant mass in left axilla consistent with abscess/phlegmon. Has been on Daptomycin since 10/10 and Levaquin since 10/12. Leukocytosis improved, remains afebrile. Fluctuant area is smaller in size on 10/14. Surgery held off on I&D for now. -continue zosyn but can convert to po levofloxacin and doxycycline meds if ready for discharge otherwise -consult Gen Surgery appreciated-no surgery indicated -Continue to monitor for improvement-slowly improving but will reassess for need for incision and drainage each day -continue pain control as above (4) PAD (peripheral artery disease): Plan: with a h/o right BKA, left toe amputations, multiple angioplasties. Seen by Vascular Med here and nothing acute that needs intervention -continue on aspirin and plavix -added pentoxifylline to try to improve circulation in case her pain is from any ischemia. (5) Anemia: Plan: hemoglobin slowly trending down to 8.4, microcytic. Transferrin saturation low at 8%, ferritin low at 24. No evidence of bleeding from anywhere obvious. B12 low normal at 258, folate normal at 6, TSH normal. She is intolerant to Venofer in the past-caused hypertension. She had tolerated Ferrlecit in the past-I gave her dose on 10/16 and it caused her nausea, belching, and "shakiness." -Will cautiously start oral iron supplementation instead now that she is moving her bowels but does have a history of opioid-induced constipation -started B12 1000 mcg po qAM -Follow CBC -Consider outpatient GI workup after discharge for occult GI blood loss Plan This patient is a 59-year-old female with a history of chronic pain, significant PAD s/p right BKA and amputations of her left toes, DM2 with neuropathy, who has been intermittently in our hospital with paroxysms of uncontrolled pain. Patient has seen pain management and multiple other specialties. She has at times had vascular procedures to improve blood flow without great improvement in her pain. Patient has failed an ilio inguinal nerve block in the past. She presents once again with her chronic left and right groin pain requiring parenteral opiate therapy - Disposition - continued stay med/surg while weaning off of IV Dilaudid and monitoring left axillary abscess/cellulitis-Nurse Navigator will need to do a prior auth for Fentanyl patch-pending Admission and Anticipated Discharge Date Admission Date: October 01, 2024 Subjective No events overnight, pt's pain has improved. Review of Systems Review of Systems: CONST: Negative for fever, body aches and chills. HENT: Negative for neck pain/stiffness, headache, congestion, sore throat, swelling. EYES: Negative for discharge/pain or vision changes. RESP: Negative for cough/hemoptysis and shortness of breath. CV: Negative chest pain, difficulty breathing, palpitations. ABD: Negative pain, nausea, vomiting. : Negative increase frequency, dysuria, blood in urine or stool. MUSC: Negative for muscle aches, edema. SKIN: Negative rash, lesions/sores. NEURO: Negative headache, dizziness, weakness. Physical Exam 2 Physical Exam: GENERAL APPEARANCE NAD, activity normal for age, well developed/ well nourished, no cyanosis, pallor, or diaphoresis. EYES lids/conjunctiva normal. EARS/NOSE/THROAT Mucous membranes moist, nares normal, lips/teeth normal uvula midline without oral pharyngeal erythema, exudate or swelling TMs normal bilaterally. No lymphangitis/lymphedema. HEAD/NECK normocephalic atraumatic, no facial trauma, neck is supple. RESPIRATORY respiratory effort normal, speaks in full sentences, no tripod position, no accessory muscle use. Lungs clear to auscultation without rhonchi, wheezes, rales CARDIAC Regular rate and rhythm, no edema. ABDOMINAL Soft, ND/NT. No evidence of fluid wave. No pulsatile masses on exam, rebound tenderness, Tran sign or pain over Mcburney's point. MUSCLES/EXTREMITIES No abnormal range of motion, no swelling. SKIN Warm, pink and dry. No rashes, dermatoses, petechiae or lesions. NEUROLOGICAL Speech is clear and appropriate. Normal level of consciousness. Gait and coordination are normal. 5/5 strength in all extremities. PSYCH Normal mood and affect. Judgement/competence is appropriate Results & Data Results & Data Vital Signs (Past 12 Hours) Vital Signs Temp Pulse Resp BP Pulse Ox O2 Del Method O2 Flow Rate 10/22/24 07:18 36.7 C 104 H 18 163/57 H 93 Nasal Cannula 2 PG Care Time/CCT Total # of Minutes Spent Total Time Spent with Patient: Total time spent is greater than 50% in coordination of care (as documented) at patient's floor/unit and/or counseling patient: Coding Level of Care Code 53924 SUB INP/OBS CARE 2/35MIN Diagnoses Chronic pain G89.29 Chronic pain type: other chronic pain Abdominal pain R10.9 Abscess L02.91 PAD (peripheral artery disease) I73.9 Anemia D64.9 (1) Chronic pain Chronic pain type: other chronic pain Qualified Code(s): G89.29 - Other chronic pain
--- NOTE | 2024-10-22 13:42 | Palliative Care Progress Note ---
Date of Service October 22, 2024 Assessment & Plan (1) Chronic pain: Plan: Pt feels pain currently well controlled and she is sleeping well without disruption of sleep 2/2 pain. No changes at this time. Continue Oxy IR at 20 and 40 mg respectively every 5 hours as needed for either moderate or very severe pain, with the hold parameters of: Hold for somnolence, respiratory rate less than 14 or systolic BP less than 110. Pain management history this admission: Pt came to ED for intractable severe pain in LLE, groin, and L flank: Home regimen Oxy IR 20mg approx 8-10 daily, no relief Prior methadone was stopped by pt at low dose because "it didn't help at all" She has a long hx of stopping meds when she feels they do not help and then she will also delay her own care, to her own detriment She has a prior substance abuse history in distant past and is opioid tolerant +manipulative behaviors, splitting teams At home pt was using oral oxycodone 160 - 200mg daily without relief 200mg oxy = 400mg oral MS equivalents (OMEs) 400mg PO MS = 133mg IV MS = dilaudid 27mg IV daily equivalent She was started TDF for opiate rotation and it is noted she has used far less Dilaudid with [employer] vs PRN dosing/pain has been better managed with [employer]S [employer] only Dilaudid. Both clonidine and transdermal fentanyl were stopped 2/2 hypotension. She had heme positive stools and was found to have rectal sigmoiditis along with an ileus likely attributed to her longstanding and chronic opioid use. She also has +opioid hyperalgesia syndrome and would probably benefit from UROD but there are no centers in this region who can offer this treatment. She is on numerous psychiatric medications which would benefit from a review/modification or possible rotation to new drugs. Her insurance does not cover MS Contin or OxyContin but does cover Oxy IR, which has been her outpatient regimen for several years. She refuses to take methadone and now also refuses to take transdermal fentanyl. (2) Palliative care by specialist: Plan: Palliative care continues to follow for pain/symptom mgmt and ACP. Plan As above, no changes in pain mgmt regime at this time, pain well controlled at present. PCP will manage her pain as outpt. If discharge to home is expected in next few days, Dr. Reji Vernon ([phone]) should be notified and he will arrange a follow up in one week. He requests Liliana be dc'd with 7 day supply. Liliana has longstanding complex chronic pain and psych issues for which she has been without psychiatry care for over 2 years and may benefit from formal psychiatry consult for medication revision as current meds are no longer helping despite several dose escalation incl Seroquel. Admission and Anticipated Discharge Date Admission Date: October 01, 2024 Subjective Pt assess at bedside. She was awake and alert and only c/o feeling tired. She shared that her pain is well managed and she is sleeping well, but feels fatigu ed from [facility]. Discussed her pain mgmt regime, she expressed satisfaction with current pain control. She denies any N/V/C. She shared that she is anxious to get back home and "tired of being in hospital". Review of Systems Review of Systems: All systems reviewed & are unremarkable except as noted in Subjective Physical Exam Physical Exam: awake/alert, no distress Constitutional: well developed, + ill appearing, + thin and + frail appearing Respiratory: normal respiratory effort, lungs clear to auscultation normal respiratory effort Cardiovascular: Rate/Rhythm: regular rate and regular rhythm Vessels: dorsalis pedis pulses present Extremities: normal capillary refill; no edema Gastrointestinal (Abdomen): normal bowel sounds, soft, nontender, no hepatosplenomegaly Musculoskeletal: Right BKA, otherwise GONZALES with strength and purpose Neurologic: PERRL, EOMI, accommodation nl, no face palsy, no dysarthria Psychiatric: Orientation: alert and oriented x 3 Affect: euthymic affect Results & Data Vital Signs (Past 12 Hours) Vital Signs Temp Pulse Resp BP Pulse Ox O2 Del Method O2 Flow Rate 10/22/24 07:18 36.7 C 104 H 18 163/57 H 93 Nasal Cannula 2 Laboratory Results Abnormal lab results 10/21/24 10/22/24 10/22/24 Range/Units 20:56 06:10 07:20 Sodium 135 L (136-145) mmol/L Creatinine 0.32 L (0.6-1.2) mg/dl BUN/Creatinine Ratio 40.6 H (10-20) POC Glucose 108 H 101 H (70-99) mg/dl Calcium 7.2 L (8.6-10.3) mg/dl Phosphorus 1.8 L (2.5-4.9) mg/dl 10/22/24 Range/Units 11:42 Sodium (136-145) mmol/L Creatinine (0.6-1.2) mg/dl BUN/Creatinine Ratio (10-20) POC Glucose 102 H (70-99) mg/dl Calcium (8.6-10.3) mg/dl Phosphorus (2.5-4.9) mg/dl Diagnostic Findings Lower Extremity CTA 10/01/24 14:21 CT ANGIOGRAPHY OF THE LEFT LOWER EXTREMITY CLINICAL HISTORY: Groin pain down to foot, hx of PAD. COMPARISON STUDY: Left lower extremity arterial Doppler ultrasound December 30, 2023. CTA with runoff July 14, 2021. CTA of the abdomen and pelvis July 01, 2024. TECHNIQUE: Helical axial images of the mid to lower abdomen, pelvis and left lower extremity were obtained during arterial phase following intravenous injection 120 cc of Optiray 320 IV. Sagittal and coronal reconstructions were viewed as well as maximal intensity projections on an independent 3-D workstation. Automated exposure control was utilized for the study. A dose lowering technique was utilized adhering to the principles of ALARA. FINDINGS: Visualized portions of the liver are unremarkable on arterial phase exam. There is no biliary ductal dilatation status post cholecystectomy. Spleen, adrenal glands and pancreas are unremarkable. There is no evidence for a bowel obstruction. The caliber and wall thickness of small and large bowel are normal. There are postoperative findings within the spine. There is no abdominal lymphadenopathy. No fluid collections are present. Postoperative findings consistent with right below-knee amputation. There is extensive plaque with multifocal stenoses within the right lower extremity vasculature. There is extensive atherosclerotic plaque within the abdominal aorta. No abdominal aortic aneurysm is present. Branch vessels are patent. There is extensive plaque within the left lower extremity vasculature. The left common iliac artery is patent. There is mild stenosis of the left external iliac artery. There is moderate stenosis of the left common femoral artery. There are moderate multifocal stenoses within the left superficial femoral artery. The left popliteal artery is patent. There is occlusion of the proximal left anterior tibial artery with distal reconstitution. The left dorsalis pedis is patent. The left peroneal artery is patent to the level of the syndesmosis. Multifocal stenoses of the left posterior tibial artery are present with occlusion and distal reconstitution. There is trace flow within the distal left posterior tibial artery. IMPRESSION: 1. Extensive atherosclerotic plaque within the left lower extremity. 2. Moderate multifocal stenoses within the left superficial femoral artery. 3. Occlusion of the proximal left anterior tibial artery which is new since CT of July 14, 2021. Distal reconstitution with patent left dorsalis pedis. 4. Occlusion of the distal left posterior tibial artery with distal reconstitution. Overall, significantly diminished flow within the left calf vessels. 5. Extensive plaque within the abdominal aorta. No aneurysm or stenosis within the abdominal aorta. Patent left common iliac artery. 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 6. Status post right below knee amputation. ACT 112: Negative or not required by law. Electronically signed by: Wilver Powell M.D. 10/01/2024 4:38 PM Ankle Brachial Index 10/02/24 13:56 Clinical history: Left foot pain. 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 A right NATHAN is therefore not possible The left NATHAN is diminished at 0.82. Blood flow could not be detected within the left toes Impression: 1. Diminished left NATHAN at 0.82. This is indicative of mild to moderate severity peripheral arterial disease 2. Lack of detectable blood flow within the left toes, which could be due to distal arterial occlusion Electronically signed by Jose Jones 10-02-2024 4:17 PM Axilla US 10/13/24 15:25 EXAM: US axilla LT CLINICAL HISTORY: US left underarm area of redness to eval abscess. TECHNIQUE: Ultrasound of left axilla performed using a linear high frequency probe and multiple images obtained. COMPARISON: None. FINDINGS: 2 complex areas are seen in the left axilla, measuring 1.7 x 1.2 x 0.5 cm and 0.6 x 0.3 x 0.8 cm. These are associated with adjacent edema and thickening of the fat. Multiple internal Echoes and debris noted Left axilla 5.3 x .7 x 2.0 cm area of redness IMPRESSION: 1. The above-mentioned finding could represent a small abscess/inflamed lymph node with adjacent inflamed fat. 2. Advised clinical correlation or Further evaluation with CT can be obtained Electronically signed by Mika De Luna 10-13-2024 6:26 PM Abdomen/Pelvis CT 10/17/24 20:20 Exam(s): CT ABDOMEN + PELVIS Without Contrast EXAM: CT Abdomen and Pelvis Without Intravenous Contrast CLINICAL HISTORY: Abdominal Pain. TECHNIQUE: Axial computed tomography images of the abdomen and pelvis without intravenous contrast. CTDI is 20.15 mGy and DLP is 1051.01 mGy-cm. Automated exposure control was utilized for the study. A dose lowering technique was utilized adhering to the principles of ALARA. COMPARISON: CT abdomen and pelvis 06/02/2024 FINDINGS: Lung bases: Bibasilar airspace opacities could represent atelectasis, however cannot exclude atypical infection or aspiration given the appearance. ABDOMEN: Liver: Unremarkable. Gallbladder and bile ducts: Cholecystectomy. No ductal dilation. Pancreas: Unremarkable. No ductal dilation. Spleen: Unremarkable. No splenomegaly. Adrenals: Unremarkable. No mass. Kidneys and ureters: Nonobstructing punctate bilateral renal calculi. No hydronephrosis of either kidney. Stomach and bowel: The stomach is distended with significant debris, question thickening of the wall the distal stomach. Cannot exclude gastric outlet obstruction or bezoar. Fluid distended small bowel without transition point to suggest obstruction. Marked nonspecific thickening of the wall the rectosigmoid colon. Significant stool throughout the colon is concerning for constipation. PELVIS: Appendix: No findings to suggest acute appendicitis. Bladder: Unremarkable. No stones. Reproductive: Unremarkable as visualized. ABDOMEN and PELVIS: Intraperitoneal space: Mild free fluid in the abdomen and pelvis is nonspecific. No free air. Bones/joints: There are degenerative changes of the spine. No acute fracture. Grade 1 anterolisthesis of L4 on L5. Posterior fusion of L5 and S1 are noted. No dislocation. Soft tissues: Unremarkable. Vasculature: Mild atherosclerosis. No abdominal aortic aneurysm. Lymph nodes: Unremarkable. No enlarged lymph nodes. IMPRESSION: 1. Marked nonspecific thickening of the wall the rectosigmoid colon. This could be infectious, inflammatory or neoplastic. There is significant stool throughout the remainder of the colon this could represent constipation, however cannot exclude a degree of low-grade colonic obstruction. 2. Fluid distended small bowel without transition point to suggest obstruction. This could represent enteritis or ileus. 3. The stomach is distended with significant debris, question thickening of the wall the distal stomach. Cannot exclude gastric outlet obstruction or bezoar. 4. Nonobstructing punctate bilateral renal calculi. No hydronephrosis of either kidney. 5. Mild free fluid in the abdomen and pelvis is nonspecific. 6. Bibasilar airspace opacities could represent atelectasis, however cannot exclude atypical infection or aspiration given the appearance. Electronically signed by: Kandace Taylor MD 10/17/24 23:18 PM Chest X-Ray 10/18/24 09:09 XR chest 1V portable CLINICAL HISTORY: line placement COMPARISON STUDY: 10/18/2024 FINDINGS: Nasogastric tube tip is off the field of view inferiorly. There is stable mild cardiomegaly without pulmonary vascular congestion. Inspiration is shallow. There is stable stranding opacity in the lung bases with partial obscuration of the diaphragm. No pneumothorax. There is an interval right central catheter with the tip at the cavoatrial junction. IMPRESSION: No pneumothorax. Otherwise as described. ACT 112: Negative or not required by law. Electronically signed by: Anil Gunter M.D. 10/18/2024 10:57 AM KUB X-Ray 10/19/24 08:50 KUB HISTORY: bowel obstruction COMPARISON STUDY: 10/18/2024 FINDINGS: Nasogastric tube tip is in the mid body of the stomach. There is mild colonic distention and there are multiple mildly distended small bowel loops at the central abdomen and pelvis, stable. No gross free air. There is moderate retained stool. IMPRESSION: Stable mild bowel distention. ACT 112: Negative or not required by law. The above report was generated using voice recognition software. It may contain grammatical, syntax or spelling errors. Electronically signed by: Anil Gunter M.D. 10/19/2024 9:03 AM Medications Administered Current Inpatient Medications Albuterol (Albut/Ipratrop 3mg/0.5mg Neb 3 Ml Vial) 3 ml NEB Q6R PRN; Protocol PRN Reason: Wheezing Stop: 11/17/24 06:42 Aripiprazole (Aripiprazole 5 Mg Tab) 5 mg PO QAM RICKY Stop: 11/08/24 08:59 Last Admin: 10/22/24 07:32 Dose: 5 mg Aspirin (Aspirin 81 Mg Ectab) 81 mg PO DAILY RICKY Stop: 11/01/24 08:59 Last Admin: 10/22/24 07:32 Dose: 81 mg Clonidine HCl (Clonidine Hcl 0.2 Mg/24 Hr Transderm Sys) 1 patch TD Q7D RICKY Stop: 11/18/24 08:59 Last Admin: 10/19/24 09:25 Dose: 1 patch Clopidogrel Bisulfate (Clopidogrel Bisulfate 75 Mg Tab) 75 mg PO DAILY RICKY Stop: 11/01/24 08:59 Last Admin: 10/22/24 07:32 Dose: 75 mg Cyanocobalamin (Cyanocobalamin (B-12) 500 Mcg Tablet) 1,000 mcg PO QAM RICKY Stop: 11/15/24 08:59 Last Admin: 10/22/24 07:32 Dose: 1,000 mcg Dextrose (Dextrose 50% 50 Ml Syringe) 25 - 50 ml IV UD PRN; Protocol PRN Reason: Hypoglycemia Protocol Stop: 11/05/24 19:59 Last Admin: 10/17/24 22:34 Dose: 25 ml Diphenhydramine HCl (Diphenhydramine Capsule 25 Mg Cap) 25 mg PO Q6H PRN PRN Reason: itching Stop: 11/12/24 17:49 Last Admin: 10/16/24 12:13 Dose: 25 mg Docusate Sodium (Docusate Sodium 100 Mg Cap) 100 mg PO BID RICKY Stop: 10/31/24 20:59 Last Admin: 10/22/24 07:29 Dose: 100 mg Duloxetine HCl (Duloxetine Hcl 60 Mg Cap) 60 mg PO DAILY RICKY Stop: 11/01/24 08:59 Last Admin: 10/22/24 07:33 Dose: 60 mg Enoxaparin Sodium (Enoxaparin Inj 40 Mg/0.4 Ml Syr) 40 mg SQ DAILY RICKY Stop: 11/18/24 09:59 Last Admin: 10/22/24 07:31 Dose: 40 mg Ferrous Sulfate (Ferrous Sulfate 325 Mg Tab) 325 mg PO QAM RICKY Stop: 11/16/24 08:59 Last Admin: 10/22/24 07:32 Dose: 325 mg Glucagon (Glucagon For Inj 1 Mg Vial) 1 mg SQ UD PRN; Protocol PRN Reason: Hypoglycemia Protocol Stop: 11/05/24 19:59 Glucose (Glucose 40% Gel 15 Gm Tube) 15 - 30 gm PO UD PRN; Protocol PRN Reason: Hypoglycemia Protocol Stop: 11/05/24 19:59 Glucose (Glucose 10 Tab/Tube) 4 - 8 tab PO UD PRN; Protocol PRN Reason: Hypoglycemia Protocol Stop: 11/05/24 19:59 Heparin Sodium (Beef Lung) (Heparin 10 Unit/Ml 5 Ml Flush) 5 ml FLUSH PRN PRN PRN Reason: Flush Stop: 11/19/24 03:55 Last Admin: 10/22/24 12:47 Dose: 5 ml Hydralazine HCl (Hydralazine Hcl 25 Mg Tab) 25 mg PO TID PRN PRN Reason: SBP>180 Stop: 10/31/24 20:59 Hydrocortisone (Hydrocortisone 1% Crm 30 Gm Tube) 1 appln EXT BID PRN PRN Reason: itch or rash Stop: 11/09/24 12:15 Last Admin: 10/19/24 09:17 Dose: 1 appln Hydroxyzine HCl (Hydroxyzine Hcl 25 Mg Tab) 50 mg PO [facility] Stop: 10/31/24 20:59 Last Admin: 10/21/24 20:58 Dose: 50 mg Prochlorperazine 5 mg/ Syringe 5 mls @ 5 mls/min IV Q6H PRN PRN Reason: Nausea And Vomiting Stop: 11/05/24 21:52 Last Admin: 10/21/24 16:53 Dose: 5 mls/min Piperacillin Sod/Tazobactam Sod (Zosyn) 4.5 gm in 100 mls @ 30 mls/hr IV Q8H [facility]; Protocol Stop: 10/22/24 23:59 Last Admin: 10/22/24 09:40 Dose: 30 mls/hr Insulin Aspart (Insulin Aspart Per Unit Charge) 0 units SC ACHS [facility] Stop: 11/18/24 16:29 Last Admin: 10/22/24 12:32 Dose: Not Given Insulin Glargine (Lantus Per Unit Charge) 10 units SC HS [facility] Stop: 10/31/24 20:59 Last Admin: 10/21/24 21:07 Dose: 10 units Lidocaine (Lidocaine 5% 1 Patch) 1 patch TD QAM [facility] Stop: 10/31/24 19:57 Last Admin: 10/22/24 07:40 Dose: 1 patch Lidocaine (Lidocaine 4% Cream 15 Gm Tube) 1 appln EXT BID [facility] Stop: 11/15/24 20:59 Last Admin: 10/22/24 07:31 Dose: Not Given Lidocaine HCl (Lidocaine 2% Jelly 5 Ml Tube) 5 ml EXT Q6H [facility] Stop: 11/15/24 13:44 Last Admin: 10/22/24 11:00 Dose: Not Given Lisinopril (Lisinopril 20 Mg Tab) 20 mg PO DAILY [facility] Stop: 11/01/24 08:59 Last Admin: 10/17/24 08:34 Dose: Not Given Lorazepam (Lorazepam 2 Mg/1 Ml Vial) 0.5 mg IV Q6H PRN PRN Reason: Anxiety/Agitation,oncalltoOR Stop: 11/06/24 16:09 Last Admin: 10/15/24 03:42 Dose: 0.5 mg Melatonin (Melatonin 3 Mg Tab) 6 mg PO HS PRN PRN Reason: Sleep Stop: 11/04/24 19:41 Last Admin: 10/21/24 21:08 Dose: 6 mg Metoprolol Succinate (Metoprolol Succ 50mg Ext Rel Tab) 50 mg PO QAM [facility] Stop: 11/01/24 08:59 Last Admin: 10/22/24 07:30 Dose: 50 mg Miscellaneous (Remove Lidoderm Patch) 1 each N/A DAILY@2100 [facility] Stop: 10/31/24 20:59 Last Admin: 10/21/24 21:01 Dose: 1 each Miscellaneous (Carbohydrates For Hypoglycemia ) 15 - 30 gm PO UD PRN PRN Reason: Hypoglycemia Protocol Stop: 11/05/24 19:59 Miscellaneous (Remove Clonidine Patch) 1 each N/A CQWK [facility] Stop: 11/18/24 08:59 Last Admin: 10/20/24 23:33 Dose: 1 each Miscellaneous (Check Clonidine Patch Placement) 1 each N/A QS [facility] Stop: 11/18/24 15:59 Last Admin: 10/22/24 07:28 Dose: 1 each Ondansetron HCl (Ondansetron Inj 2 Mg/Ml 2 Ml Vial) 4 mg IV Q6H [facility] Stop: 11/02/24 12:59 Last Admin: 10/22/24 12:50 Dose: 4 mg Oxycodone HCl (Oxycodone Hcl Ir 5 Mg Tab (Immediate Release)) 20 mg PO Q5H PRN PRN Reason: Moderate Pain (Scale 4, 5, 6) Stop: 11/03/24 10:25 Last Admin: 10/21/24 03:54 Dose: 20 mg Oxycodone HCl (Oxycodone Hcl Ir 5 Mg Tab (Immediate Release)) 40 mg PO Q5H PRN PRN Reason: Severe Pain (Scale 7, 8, 9,10) Stop: 11/03/24 10:25 Last Admin: 10/22/24 07:29 Dose: 40 mg Pantoprazole Sodium (Pantoprazole 40 Mg Tab) 40 mg PO BID [facility] Stop: 11/16/24 20:59 Last Admin: 10/22/24 07:34 Dose: 40 mg Pentoxifylline (Pentoxifylline 400mg Ext Rel Tab) 400 mg PO BID [facility] Stop: 11/10/24 20:59 Last Admin: 10/22/24 07:33 Dose: 400 mg Polyethylene Glycol (Polyethylene (Miralax) 17 Gm Pack) 17 gm PO BID [facility] Stop: 11/17/24 08:59 Last Admin: 10/22/24 07:29 Dose: 17 gm Pregabalin (Pregabalin 150 Mg Cap) 150 mg PO TID [facility] Stop: 11/06/24 08:59 Last Admin: 10/22/24 12:50 Dose: 150 mg Quetiapine Fumarate (Quetiapine Fumarate 25 Mg Tablet) 50 mg PO [facility] Stop: 11/08/24 20:59 Last Admin: 10/21/24 21:00 Dose: 50 mg Ropinirole HCl (Ropinirole Hcl 2 Mg Tablet) 8 mg PO [facility] Stop: 10/31/24 20:59 Last Admin: 10/21/24 21:01 Dose: 8 mg Sennosides (Senna 8.6 Mg Tab) 17.2 mg PO [facility] Stop: 11/07/24 20:59 Last Admin: 10/21/24 21:08 Dose: 17.2 mg PG Care Time/CCT Total # of Minutes Spent Total Time Spent with Patient: Total time spent is greater than 50% in coordination of care (as documented) at patient's floor/unit and/or counseling patient: Coding [place] [address] SUB INP/OBS CARE 09/06MIN Patient Type Established History Problem Focused Exam Problem Focused Medical Decision Making Straight Forward Diagnoses Chronic pain syndrome G89.4 Chronic pain type: chronic pain syndrome Palliative care by specialist Z51.5 (1) Chronic pain Chronic pain type: chronic pain syndrome Qualified Code(s): G89.4 - Chronic pain syndrome
[2024-10-23 08:09] LABS: BUN Creatinine Ratio 36.7 (10-20); Calcium 7.7 mg/dl (8.6-10.3); Creatinine Clr Calc Pharmacy 176.7 ml/min; Magnesium 1.7 mg/dl (1.7-2.4); Phosphorus 1.6 mg/dl (2.5-4.9); Potassium 3.5 mmol/L (3.5-5.1)
--- NOTE | 2024-10-23 10:57 | Hospitalist Progress Note ---
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 The pain is not consistent with ischemia, she has been seen by vascular medicine Dr Lin in December 2023 and again this admission for similar pain and not suspected to be due to ischemia and she has good dorsalis pedis pulse on palpation. Her left foot is cool but with good capillary refill. CTA 10/01/24 shows some progression of PAD To LLE. Patient has failed different long and short acting opioids to include MS Contin, Morphine, and methadone, Fentanyl patch caused hallucinations Etiology is most likely neuropathic and ischemic pain with parts of this likely being hyperalgesia. Thus far she is tolerating fentanyl patch without any hallucinations. Reports the 40 mg of oxycodone is making her too tired -Palliative Med managing pain control -increased Lyrica to 150mg tid, continue duloxetine same dose -increased oxycodone to 40mg po q4h prn breakthrough pain on 10/14 but now decreasing back to 30 mg on 10/16 -Patient agreeable to referral to see a therapist on an intensive basis as an outpatient-psychiatric behavioral health liaison is consulted to assist with this -fentanyl currently on hold 2nd to hypotension -oxycodone restarted. (2) Abdominal pain: Plan: -Pt with CT showing Marked nonspecific thickening of the wall the rectosigmoid colon. This could be infectious, inflammatory or neoplastic. There is significant stool throughout the remainder of the colon this could represent constipation, however cannot exclude a degree of low-grade colonic obstruction -GI consult appreciated, recommending endoscopy once acute abdominal issues resolved. -surgery consult appreciated -NGT d/c'd -diet advanced -holding IV narcotics -abx d/c'd (3) Abscess: Plan: developed acute onset of painful swollen lumps in left axilla on 10/10. Suspected lymphadenitis initially and then formed a fluctuant mass in left axilla consistent with abscess/phlegmon. Has been on Daptomycin since 10/10 and Levaquin since 10/12. Leukocytosis improved, remains afebrile. Fluctuant area is smaller in size on 10/14. Surgery held off on I&D for now. -continue zosyn but can convert to po levofloxacin and doxycycline meds if ready for discharge otherwise -consult Gen Surgery appreciated-no surgery indicated -Continue to monitor for improvement-slowly improving but will reassess for need for incision and drainage each day -continue pain control as above (4) PAD (peripheral artery disease): Plan: with a h/o right BKA, left toe amputations, multiple angioplasties. Seen by Vascular Med here and nothing acute that needs intervention -continue on aspirin and plavix -added pentoxifylline to try to improve circulation in case her pain is from any ischemia. (5) Anemia: Plan: hemoglobin slowly trending down to 8.4, microcytic. Transferrin saturation low at 8%, ferritin low at 24. No evidence of bleeding from anywhere obvious. B12 low normal at 258, folate normal at 6, TSH normal. She is intolerant to Venofer in the past-caused hypertension. She had tolerated Ferrlecit in the past-I gave her dose on 10/16 and it caused her nausea, belching, and "shakiness." -Will cautiously start oral iron supplementation instead now that she is moving her bowels but does have a history of opioid-induced constipation -started B12 1000 mcg po qAM -Follow CBC -Consider outpatient GI workup after discharge for occult GI blood loss Plan This patient is a 59-year-old female with a history of chronic pain, significant PAD s/p right BKA and amputations of her left toes, DM2 with neuropathy, who has been intermittently in our hospital with paroxysms of uncontrolled pain. Patient has seen pain management and multiple other specialties. She has at times had vascular procedures to improve blood flow without great improvement in her pain. Patient has failed an ilio inguinal nerve block in the past. She presents once again with her chronic left and right groin pain requiring parenteral opiate therapy - Disposition -Plan for d/c home 10/24 Admission and Anticipated Discharge Date Admission Date: October 01, 2024 Subjective Pt states she is ready to go home tmw. Feeling better, tolerating her diet. Review of Systems Review of Systems: CONST: Negative for fever, body aches and chills. HENT: Negative for neck pain/stiffness, headache, congestion, sore throat, swelling. EYES: Negative for discharge/pain or vision changes. RESP: Negative for cough/hemoptysis and shortness of breath. CV: Negative chest pain, difficulty breathing, palpitations. ABD: Negative pain, nausea, vomiting. : Negative increase frequency, dysuria, blood in urine or stool. MUSC: Negative for muscle aches, edema. SKIN: Negative rash, lesions/sores. NEURO: Negative headache, dizziness, weakness. Physical Exam Physical Exam: GENERAL APPEARANCE NAD, activity normal for age, well developed/ well nourished, no cyanosis, pallor, or diaphoresis. EYES lids/conjunctiva normal. EARS/NOSE/THROAT Mucous membranes moist, nares normal, lips/teeth normal uvula midline without oral pharyngeal erythema, exudate or swelling TMs normal bilaterally. No lymphangitis/lymphedema. HEAD/NECK normocephalic atraumatic, no facial trauma, neck is supple. RESPIRATORY respiratory effort normal, speaks in full sentences, no tripod position, no accessory muscle use. Lungs clear to auscultation without rhonchi, wheezes, rales CARDIAC Regular rate and rhythm, no edema. ABDOMINAL Soft, ND/NT. No evidence of fluid wave. No pulsatile masses on exam, rebound tenderness, Tran sign or pain over Mcburney's point. MUSCLES/EXTREMITIES No abnormal range of motion, no swelling. SKIN Warm, pink and dry. No rashes, dermatoses, petechiae or lesions. NEUROLOGICAL Speech is clear and appropriate. Normal level of consciousness. Gait and coordination are normal. 5/5 strength in all extremities. PSYCH Normal mood and affect. Judgement/competence is appropriate Results & Data Results & Data Vital Signs (Past 12 Hours) Vital Signs Temp Pulse Resp BP Pulse Ox O2 Del Method O2 Flow Rate 10/23/24 07:15 36.8 C 104 H 20 153/73 H 98 Nasal Cannula 2 PG Care Time/CCT Total # of Minutes Spent Total Time Spent with Patient: Total time spent is greater than 50% in coordination of care (as documented) at patient's floor/unit and/or counseling patient: Coding Level of Care Code 27675 SUB INP/OBS CARE 2/35MIN Diagnoses Chronic pain G89.29 Chronic pain type: other chronic pain Abdominal pain R10.9 Abscess L02.91 PAD (peripheral artery disease) I73.9 Anemia D64.9 (1) Chronic pain Chronic pain type: other chronic pain Qualified Code(s): G89.29 - Other chronic pain
[2024-10-23 14:09] VITALS: RESP 18
--- NOTE | 2024-10-23 15:16 | Discharge Summary ---
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 The pain is not consistent with ischemia, she has been seen by vascular medicine Dr Lin in December 2023 and again this admission for similar pain and not suspected to be due to ischemia and she has good dorsalis pedis pulse on palpation. Her left foot is cool but with good capillary refill. CTA 10/01/24 shows some progression of PAD To LLE. Patient has failed different long and short acting opioids to include MS Contin, Morphine, and methadone, Fentanyl patch caused hallucinations Etiology is most likely neuropathic and ischemic pain with parts of this likely being hyperalgesia. Thus far she is tolerating fentanyl patch without any hallucinations. Reports the 40 mg of oxycodone is making her too tired -Palliative Med managing pain control -increased Lyrica to 150mg tid, continue duloxetine same dose -increased oxycodone to 40mg po q4h prn breakthrough pain on 10/14 but now decreasing back to 30 mg on 10/16 -Patient agreeable to referral to see a therapist on an intensive basis as an outpatient-psychiatric behavioral health liaison is consulted to assist with this -fentanyl currently on hold 2nd to hypotension -oxycodone restarted. (2) Abdominal pain: -Pt with CT showing Marked nonspecific thickening of the wall the rectosigmoid colon. This could be infectious, inflammatory or neoplastic. There is significant stool throughout the remainder of the colon this could represent constipation, however cannot exclude a degree of low-grade colonic obstruction -GI consult appreciated, recommending endoscopy once acute abdominal issues resolved. -surgery consult appreciated -NGT d/c'd -diet advanced -holding IV narcotics -abx d/c'd (3) Abscess: developed acute onset of painful swollen lumps in left axilla on 10/10. Suspected lymphadenitis initially and then formed a fluctuant mass in left axilla consistent with abscess/phlegmon. Has been on Daptomycin since 10/10 and Levaquin since 10/12. Leukocytosis improved, remains afebrile. Fluctuant area is smaller in size on 10/14. Surgery held off on I&D for now. -continue zosyn but can convert to po levofloxacin and doxycycline meds if ready for discharge otherwise -consult Gen Surgery appreciated-no surgery indicated -Continue to monitor for improvement-slowly improving but will reassess for need for incision and drainage each day -continue pain control as above (4) PAD (peripheral artery disease): with a h/o right BKA, left toe amputations, multiple angioplasties. Seen by Vascular Med here and nothing acute that needs intervention -continue on aspirin and plavix -added pentoxifylline to try to improve circulation in case her pain is from any ischemia. (5) Anemia: hemoglobin slowly trending down to 8.4, microcytic. Transferrin saturation low at 8%, ferritin low at 24. No evidence of bleeding from anywhere obvious. B12 low normal at 258, folate normal at 6, TSH normal. She is intolerant to Venofer in the past-caused hypertension. She had tolerated Ferrlecit in the past-I gave her dose on 10/16 and it caused her nausea, belching, and "shakiness." -Will cautiously start oral iron supplementation instead now that she is moving her bowels but does have a history of opioid-induced constipation -started B12 1000 mcg po qAM -Follow CBC -Consider outpatient GI workup after discharge for occult GI blood loss Plan This patient is a 59-year-old female with a history of chronic pain, significant PAD s/p right BKA and amputations of her left toes, DM2 with neuropathy, who has been intermittently in our hospital with paroxysms of uncontrolled pain. Patient has seen pain management and multiple other specialties. She has at times had vascular procedures to improve blood flow without great improvement in her pain. Patient has failed an ilio inguinal nerve block in the past. She presents once again with her chronic left and right groin pain requiring parenteral opiate therapy - Disposition -Plan for d/c home 10/24 Admission HPI Per Admitting Provider Mariana Witt is a 59 year old female who presents to the ER with intractable left leg pain. Difficult to get a good history from the patient as she is currently in 10 out of 10 pain and does not want to go through medication reconciliation or significant history of the pain. She denies any new acute symptoms. She reports the pain is in her back, groin and radiates down the inside part of her left leg. On review of previous notes it appears she has had left groin pain present for several months. She is currently on oxycodone 20 mg p.o. x 6/day to manage a chronic pain. In February last year she received a left iliofemoral nerve block and had 4 hours of partial pain relief. She reports not getting outpatient injections as they did not work. She feels the oxycodone does not work for pain however she continues to pick this up as an outpatient. Reportedly her PCP contacted palliative care to be admitted to [facility] to help get her pain under control. Discharge Exam GENERAL APPEARANCE NAD, activity normal for age, well developed/ well nourished, no cyanosis, pallor, or diaphoresis. EYES lids/conjunctiva normal. EARS/NOSE/THROAT Mucous membranes moist, nares nor mal, lips/teeth normal uvula midline without oral pharyngeal erythema, exudate or swelling TMs normal bilaterally. No lymphangitis/lymphedema. HEAD/NECK normocephalic atraumatic, no facial trauma, neck is supple. RESPIRATORY respiratory effort normal, speaks in full sentences, no tripod position, no accessory muscle use. Lungs clear to auscultation without rhonchi, wheezes, rales CARDIAC Regular rate and rhythm, no edema. ABDOMINAL Soft, ND/NT. No evidence of fluid wave. No pulsatile masses on exam, rebound tenderness, Tran sign or pain over Mcburney's point. MUSCLES/EXTREMITIES No abnormal range of motion, no swelling. SKIN Warm, pink and dry. No rashes, dermatoses, petechiae or lesions. NEUROLOGICAL Speech is clear and appropriate. Normal level of consciousness. Gait and coordination are normal. 5/5 strength in all extremities. PSYCH Normal mood and affect. Judgement/competence is appropriate Discharge Plan Discharge Items Patient Disposition: Home - Self-Care Reason For Visit: INTRACTABLE PAIN Discharge Diagnosis: Intractable pain Activity: Resume your previous activity Non-emergency contact: Primary Care Provider Call non-emergency contact if: you have any medication questions Follow-up/Referrals: Vince Vernon DO [Primary Care Provider] - Diet: Regular Addtl Attending Provider Instructions: Follow up with pmd in 1 week Pending Studies at Discharge: No Stand-Alone Forms: My [facility] ShareYourCart, Smoking Cessation Medications and DC Order Prescriptions: Continued prochlorperazine maleate 5 mg tablet 5 mg PO TID PRN (Reason: Nausea) insulin glargine [Lantus Solostar U-100 Insulin] 100 unit/mL (3 mL) insulin pen 10 unit SUBCUT HS metoprolol succinate [Toprol XL] 50 mg tablet extended release 24 hr 50 mg PO QAM docusate sodium 100 mg Capsule 100 mg PO BID alprazolam 1 mg tablet 1 mg PO TID PRN (Reason: Anxiety) clopidogrel [Plavix] 75 mg tablet 75 mg PO DAILY Qty: 30 0RF hydralazine 25 mg tablet 25 mg PO TID aspirin 81 mg Tablet,Delayed Release (Dr/Ec) 81 mg PO DAILY clonidine HCl 0.1 mg Tablet 0.1 mg PO Q8H Qty: 90 0RF pregabalin [Lyrica] 100 mg Capsule 100 mg PO TID Qty: 90 0RF polyethylene glycol 3350 [Miralax] 17 gram Powder In Packet 17 g PO BID Qty: 0 0RF Rx Instructions: 1 capful twice a day for constipation, buy over the counter sennosides [Senokot] 8.6 mg Tablet 17.2 mg PO BID PRN (Reason: constipation) Qty: 60 0RF naloxone 4 mg/actuation spray,non-aerosol 4 mg intranasal ONCE PRN (Reason: opioid overdose) Qty: 2 0RF Rx Instructions: call 911 if used, may repeat dose if ineffective ropinirole 4 mg tablet 8 mg PO HS Fiasp FlexTouch U-100 Insulin 100 unit/mL (3 mL) insulin pen 5 unit SUBCUT TIDM duloxetine 60 mg capsule,delayed release(DR/EC) 60 mg PO DAILY lisinopril 20 mg Tablet 20 mg PO DAILY sucralfate [Carafate] 100 mg/mL suspension 1 g PO ACHS Qty: 200 0RF quetiapine 25 mg tablet 25 mg PO HS hydroxyzine HCl 25 mg Tablet 50 mg PO HS Qty: 30 0RF aripiprazole [Abilify] 5 mg Tablet 2.5 mg PO QAM Qty: 30 0RF Discharge Orders: Discharge Order (Routine); Ordered 10/23/24 Ordered By: Milan Nava/Other Patient Handouts: Managing Type 2 Diabetes Admission Data Admit Date/Time: 10/01/24 18:00 Attending Provider: Milan Senior Admit Provider: Silvestre Best Primary Care Provider: Vince Vernon Other Providers: Anil Ramirez; Kaylee Zheng; Alondra Driscoll; Silvestre Best; Dallas Polk; Josie Montana; Miranda Porter; Cande Ward; Vivek Perkins; Davon Good; Morro Aly; Ivette Reyna; Ravi Barnhart; Joseph Swenson; Maria C Aguilar; Moses Porter; Kevin Zhu; Mich Fuentes Hospital Stay Data Consultations 10/01/24 16:02 Consult Palliative Care Routine 10/01/24 16:51 ED Decision to Admit Stat 10/02/24 02:05 Consult Pain Management Routine 10/02/24 05:29 Consult Behavioral Health Liaison Routine 10/13/24 14:37 Consult General Surgery Routine 10/15/24 10:18 Consult Behavioral Health Liaison Routine 10/17/24 14:22 Consult Gastroenterology Routine 10/18/24 05:08 Consult Covering Machine Operator Helper Routine 10/18/24 09:09 Consult General Surgery Routine 10/18/24 09:12 Consult General Surgery Routine Diagnostic Imagining Performed 10/01/24 14:21 CT angio LE LT w inc wo if don Stat 10/02/24 13:56 US ankle/brachial index ltd Routine 10/10/24 14:05 US axilla LT Urgent 10/13/24 15:25 US axilla LT Routine 10/17/24 20:20 CT abd pelvis wo con Stat Pending Results Patient Have Any Pending Studies at Discharge: No Discharge Instructions Given to Patient (Per Discharging Provider) Follow up with pmd in 1 week Total Time Total Time Spent Total Time Spent (In Minutes): 50 Coding Level of Care Code 07266 INP/OBS DISCH >30 MIN Diagnoses Chronic pain G89.29 Chronic pain type: other chronic pain Abdominal pain R10.9 Abscess L02.91 PAD (peripheral artery disease) I73.9 Anemia D64.9
[2024-10-23] MEDS: ONDANSETRON 4 MG OD TAB PO PRN (21:27)
[2024-10-23 23:03] VITALS: O2SAT 97
[2024-10-24 07:41] VITALS: BP 183/76; PULSE 110; TEMP 97.7
--- NOTE | 2024-10-24 10:17 | Hospitalist Progress Note ---
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 The pain is not consistent with ischemia, she has been seen by vascular medicine Dr Lin in December 2023 and again this admission for similar pain and not suspected to be due to ischemia and she has good dorsalis pedis pulse on palpation. Her left foot is cool but with good capillary refill. CTA 10/01/24 shows some progression of PAD To LLE. Patient has failed different long and short acting opioids to include MS Contin, Morphine, and methadone, Fentanyl patch caused hallucinations Etiology is most likely neuropathic and ischemic pain with parts of this likely being hyperalgesia. Thus far she is tolerating fentanyl patch without any hallucinations. Reports the 40 mg of oxycodone is making her too tired -Palliative Med managing pain control -increased Lyrica to 150mg tid, continue duloxetine same dose -increased oxycodone to 40mg po q4h prn breakthrough pain on 10/14 but now decreasing back to 30 mg on 10/16 -Patient agreeable to referral to see a therapist on an intensive basis as an outpatient-psychiatric behavioral health liaison is consulted to assist with this -fentanyl currently on hold 2nd to hypotension -oxycodone restarted. (2) Abdominal pain: Plan: -Pt with CT showing Marked nonspecific thickening of the wall the rectosigmoid colon. This could be infectious, inflammatory or neoplastic. There is significant stool throughout the remainder of the colon this could represent constipation, however cannot exclude a degree of low-grade colonic obstruction -GI consult appreciated, recommending endoscopy once acute abdominal issues resolved. -surgery consult appreciated -NGT d/c'd -diet advanced -holding IV narcotics -abx d/c'd (3) Abscess: Plan: developed acute onset of painful swollen lumps in left axilla on 10/10. Suspected lymphadenitis initially and then formed a fluctuant mass in left axilla consistent with abscess/phlegmon. Has been on Daptomycin since 10/10 and Levaquin since 10/12. Leukocytosis improved, remains afebrile. Fluctuant area is smaller in size on 10/14. Surgery held off on I&D for now. -continue zosyn but can convert to po levofloxacin and doxycycline meds if ready for discharge otherwise -consult Gen Surgery appreciated-no surgery indicated -Continue to monitor for improvement-slowly improving but will reassess for need for incision and drainage each day -continue pain control as above (4) PAD (peripheral artery disease): Plan: with a h/o right BKA, left toe amputations, multiple angioplasties. Seen by Vascular Med here and nothing acute that needs intervention -continue on aspirin and plavix -added pentoxifylline to try to improve circulation in case her pain is from any ischemia. (5) Anemia: Plan: hemoglobin slowly trending down to 8.4, microcytic. Transferrin saturation low at 8%, ferritin low at 24. No evidence of bleeding from anywhere obvious. B12 low normal at 258, folate normal at 6, TSH normal. She is intolerant to Venofer in the past-caused hypertension. She had tolerated Ferrlecit in the past-I gave her dose on 10/16 and it caused her nausea, belching, and "shakiness." -Will cautiously start oral iron supplementation instead now that she is moving her bowels but does have a history of opioid-induced constipation -started B12 1000 mcg po qAM -Follow CBC -Consider outpatient GI workup after discharge for occult GI blood loss Plan This patient is a 59-year-old female with a history of chronic pain, significant PAD s/p right BKA and amputations of her left toes, DM2 with neuropathy, who has been intermittently in our hospital with paroxysms of uncontrolled pain. Patient has seen pain management and multiple other specialties. She has at times had vascular procedures to improve blood flow without great improvement in her pain. Patient has failed an ilio inguinal nerve block in the past. She presents once again with her chronic left and right groin pain requiring parenteral opiate therapy - Disposition -Plan for d/c home 10/24 Admission and Anticipated Discharge Date Admission Date: October 01, 2024 Subjective Pt states she is ready to go home today. Feeling better, tolerating her diet. Review of Systems Review of Systems: CONST: Negative for fever, body aches and chills. HENT: Negative for neck pain/stiffness, headache, congestion, sore throat, swelling. EYES: Negative for discharge/pain or vision changes. RESP: Negative for cough/hemoptysis and shortness of breath. CV: Negative chest pain, difficulty breathing, palpitations. ABD: Negative pain, nausea, vomiting. : Negative increase frequency, dysuria, blood in urine or stool. MUSC: Negative for muscle aches, edema. SKIN: Negative rash, lesions/sores. NEURO: Negative headache, dizziness, weakness. Physical Exam Physical Exam: GENERAL APPEARANCE NAD, activity normal for age, well developed/ well nourished, no cyanosis, pallor, or diaphoresis. EYES lids/conjunctiva normal. EARS/NOSE/THROAT Mucous membranes moist, nares normal, lips/teeth normal uvula midline without oral pharyngeal erythema, exudate or swelling TMs normal bilaterally. No lymphangitis/lymphedema. HEAD/NECK normocephalic atraumatic, no facial trauma, neck is supple. RESPIRATORY respiratory effort normal, speaks in full sentences, no tripod position, no accessory muscle use. Lungs clear to auscultation without rhonchi, wheezes, rales CARDIAC Regular rate and rhythm, no edema. ABDOMINAL Soft, ND/NT. No evidence of fluid wave. No pulsatile masses on exam, rebound tenderness, Tran sign or pain over Mcburney's point. MUSCLES/EXTREMITIES No abnormal range of motion, no swelling. SKIN Warm, pink and dry. No rashes, dermatoses, petechiae or lesions. NEUROLOGICAL Speech is clear and appropriate. Normal level of consciousness. Gait and coordination are normal. 5/5 strength in all extremities. PSYCH Normal mood and affect. Judgement/competence is appropriate Results & Data Results & Data Vital Signs (Past 12 Hours) Vital Signs Temp Pulse Resp BP BP Pulse Ox O2 Del Method 10/24/24 07:34 36.5 C 110 H 18 183/76 H 97 Nasal Cannula 10/23/24 23:00 37.6 C H 101 H 18 134/69 97 Nasal Cannula O2 Flow Rate 10/24/24 07:34 2.0 10/23/24 23:00 4 PG Care Time/CCT Total # of Minutes Spent Total Time Spent with Patient: Total time spent is greater than 50% in coordination of care (as documented) at patient's floor/unit and/or counseling patient: Coding Level of Care Code 74690 SUB INP/OBS CARE 2/35MIN Diagnoses Chronic pain G89.29 Chronic pain type: other chronic pain Abdominal pain R10.9 Abscess L02.91 PAD (peripheral artery disease) I73.9 Anemia D64.9 (1) Chronic pain Chronic pain type: other chronic pain Qualified Code(s): G89.29 - Other chronic pain
== END 2024-10-24 10:53 | disposition home or self-care (01) | DRG 91 ==
LOC: ED 11:33 → EDINP 18:00 → SUATTDRO 18:00 → EDINP 19:58 → 2N 10-02 01:25 → 3N 10-04 14:46 → 2N 10-17 18:25 → 2S 10-17 21:29 → 1E 10-18 05:31 → 3W 10-19 12:23